=== PATIENT | female | born 1940 | race Caucasian/White ===

== ENCOUNTER 2017-10-28 09:35 | Outpatient (RCR) | payer MEDICARE, BC, SELFPAY ==
[2017-10-23 01:15] VITALS: BP 163/90; PULSE 69; RESP 16; TEMP 36.9; BMI 39.6
[2017-10-28 13:13] VITALS: BP 147/72; PULSE 82; RESP 16; TEMP 37.2; BMI 39.6
--- NOTE | 2017-10-28 14:48 | PCM.WC.PN ---
(1) Lipodermatosclerosis Status: Chronic Current Visit: Yes Code(s): I83.10 - Varicose veins of unspecified lower extremity with inflammation (2) Venous stasis dermatitis of both lower extremities Status: Chronic Current Visit: Yes Code(s): I87.2 - Venous insufficiency (chronic) (peripheral) (3) 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 Status: Chronic Current Visit: Yes Code(s): I83.029 - Varicose veins of left lower extremity with ulcer of unspecified site (4) Lymphedema Status: Chronic Current Visit: Yes Code(s): I89.0 - Lymphedema, not elsewhere classified Type of Wound Date of Service: 10/28/17 Chief Complaint: nonhealing venous ulcer of left lower extremity History of Wound: Blessing is a 76 yo female that presents for evaluation and treatment of a venous ulcer of her left lateral lower leg. She was referred by Dr. Carlos Shaw. This wound/ulcer has been present since 07/25/17. She states that she has chronic dry areas and scaliness of her shins/lower legs and has restless legs which she believes caused her to rub her leg against the sheets while sleeping and open this area on her lower leg. She was using Bactroban ointment to the wound with Telfa dressing initially. She saw her PCP, Dr. Vasquez, who recommended keeping it open to the air and not bandaging it and most recently she saw Dr. Shaw, who recommended using Vaseline and gauze to the wound. Dr. Shaw also had other recommendations for treatment of her lipdermatosclerosis which she has started. She states that the wound was almost healed but since she has been using dressings on it, they have been difficult to remove and have been pulling the skin off when the dressings are changed per the patient. There is some drainage but no erythema or increased pain. She has compression stockings but only wears them while traveling. She had vascular studies in 2011. Her diabetes is well controlled with last A1C of 6.7%. Progress of Wound: Blessing returns today for evaluation and treatment of a venous ulcer of her left lateral leg. Her wound/ulcer is healed today. She completed Bactrim and is still finishing her prescribed course of doxycycline. - Physical Exam Vital Signs Temp Pulse Resp BP 98.9 F 82 16 147/72 H 10/28/17 13:13 10/28/17 13:13 10/28/17 13:13 10/28/17 13:13 General: Alert, Oriented x3, Cooperative, No apparent distress HEENT: Atraumatic, Normocephalic Oral: Moist Mucosa Abdomen: Obese Extremities: Edema Skin: Ulcer/ Wound Wound Measurements and Assessment - Nurse 1 - General Ulcer Measurement Start: 10/28/17 13:12 Freq: Status: Active Protocol: Activity Type Activity Date Activity User E-Sign Co-Sign Detail Recorded Client Recorded Date Recorded By Document 10/28/17 13:13 [facility] [id number] 10/28/17 13:23 [facility] 10/28/17 13:13 Wound Center Nurse 1 [Ulcer Assessment Protocol: TOREY.ALMA.LOC] #1- LT LATERAL ANTHONY -Combined with other wound No -Current Size (cm) - Length 0.1 -Current Size (cm) - Width 0.1 -Current Size (cm) - Depth 0.1 -Total Square Cm 0.01 -Epithelialization Large 67-100% -Exudate Amt None Present (0 %) -Texture (Deborah-wound Skin Appearance) Scarring -Moisture (Deborah-wound Skin Appearance Dry/Scaly ) -Color (Deborah-wound Skin Appearance) Hemosiderin Staining -Temperature (Deborah-wound Skin No Abnormality Appearance) (Pt Warm) -Tenderness on Palpation (Deborah-wound No Skin Appearance) -Ulcer Cleansing Rinsed/ Irrigated with Saline -Foul Odor after Cleansing No -Anesthetic Used 4% Lidocaine Solution [Edema Assessment] -Lower Limb Edema Present Yes -Left Calf (cm) 42 -Left Ankle (cm) 24.4 - Nurse 2 - General Ulcer CM Notes Start: 10/28/17 13:12 Freq: Status: Active Protocol: Activity Type Activity Date Activity User E-Sign Co-Sign Detail Recorded Client Recorded Date Recorded By Document 10/28/17 14:12 [id number] 10/28/17 14:17 10/28/17 14:12 Wound Center Nurse 2 [Procedure/Treatment] #1- LT LATERAL ANTHONY -Time 14:13 -Correct Patient Yes -Correct Side, Site, Position Yes -Correct Procedure Yes -Procedure Performed Yes -Type of Procedure Debridement -Clinical Debridement Subcutaneous -Post Debridement Size (cm) - Length 0 -Post Debridement Size (cm) - Width 0 -Post Debridement Size (cm) - Depth 0 -Total Square Cm 0 -Wound/Ulcer Outcome Healed- Epithelialized -Ulcer Cleansing Rinsed/ Irrigated with Saline -Foul Odor after Cleansing No -Bioengineered Tissue No -Cetacaine [place] No -Bleeding Controlled with NA -Treatment Response Procedure Tolerated Well [See Physician Procedure note for Specifics] Pain Scale: 0-10 Numeric [Pain] -Is Patient Pain Free? Yes Psych/Mental Status: Normal Affect, Appropriate Debridement Note Post-Debridement Measurements/Treatment WC - Nurse 2 - General Ulcer CM Notes Start: 10/28/17 13:12 Freq: Status: Active Protocol: Activity Type Activity Date Activity User E-Sign Co-Sign Detail Recorded Client Recorded Date Recorded By Document 10/28/17 14:12 [id number] 10/28/17 14:17 10/28/17 14:12 Wound Center Nurse 2 #1- LT LATERAL ANTHONY -Time 14:13 -Correct Patient Yes -Correct Side, Site, Position Yes -Correct Procedure Yes -Procedure Performed Yes -Type of Procedure Debridement -Clinical Debridement Subcutaneous -Post Debridement Size (cm) - Length 0 -Post Debridement Size (cm) - Width 0 -Post Debridement Size (cm) - Depth 0 -Total Square Cm 0 -Wound/Ulcer Outcome Healed- Epithelialized -Ulcer Cleansing Rinsed/ Irrigated with Saline -Foul Odor after Cleansing No -Bioengineered Tissue No -Cetacaine [place] No -Bleeding Controlled with NA -Treatment Response Procedure Tolerated Well Pain Scale: 0-10 Numeric Is Patient Pain Free? Yes Wound debrided: left lateral anthony Laterality: Left No debridement was completed today Assessment/Plan Active Problems Lipodermatosclerosis (Chronic) Venous stasis dermatitis of both lower extremities (Chronic) 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 (Chronic) Lymphedema (Chronic) Assessment: venous ulcer of left lower extremity. lymphedema Plan: Blessing's wound was evaluated and is healed today. Encouraged regular use of her compression stockings to control edema to prevent future wounds/ulcers as well as elevation of legs when possible and avoidance of idle standing or sitting. She will be discharged today to follow up as needed if she has any future wounds.
--- NOTE | 2017-10-28 14:53 | PN.PCM_ITS ---
(1) Lipodermatosclerosis Status: Chronic Current Visit: Yes Code(s): I83.10 - Varicose veins of unspecified lower extremity with inflammation (2) Venous stasis dermatitis of both lower extremities Status: Chronic Current Visit: Yes Code(s): I87.2 - Venous insufficiency ( chronic) (peripheral) (3) 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 Status: Chronic Current Visit: Yes Code(s): I83.029 - Varicose veins of left lower extremity with ulcer of unspecified site (4) Lymphedema Status: Chronic Current Visit: Yes Code(s): I89.0 - Lymphedema, not elsewhere classified Type of Wound Date of Service: 10/28/17 Chief Complaint: nonhealing venous ulcer of left lower extremity History of Wound: Blessing is a 76 yo female that presents for evaluation and treatment of a venous ulcer of her left lateral lower leg. She was referred by Dr. Carlos Shaw. This wound/ulcer has been present since 07/25/17. She states that she has chronic dry areas and scaliness of her shins/lower legs and has restless legs which she believes caused her to rub her leg against the sheets while sleeping and open this area on her lower leg. She was using Bactroban ointment to the wound with Telfa dressing initially. She saw her PCP, Dr. Vasquez , who recommended keeping it open to the air and not bandaging it and most recently she saw Dr. Shaw, who recommended using Vaseline and gauze to the wound. Dr. Shaw also had other recommendations for treatment of her lipdermatosclerosis which she has started. She states that the wound was almost healed but since she has been using dressings on it, they have been difficult to remove and have been pulling the skin off when the dressings are changed per the patient. There is some drainage but no erythema or increased pain. She has compression stockings but only wears them while traveling. She had vascular studies in 2011. Her diabetes is well controlled with last A1C of 6.7%. Progress of Wound: Blessing returns today for evaluation and treatment of a venous ulcer of her left lateral leg. Her wound/ulcer is healed today. She completed Bactrim and is still finishing her prescribed course of doxycycline. - Physical Exam Vital Signs Temp Pulse Resp BP 98.9 F 82 16 147/72 H 10/28/17 13:13 10/28/17 13:13 10/28/17 13:13 10/28/17 13:13 General: Alert, Oriented x3, Cooperative, No apparent distress HEENT: Atraumatic, Normocephalic Oral: Moist Mucosa Abdomen: Obese Extremities: Edema Skin: Ulcer/ Wound Wound Measurements and Assessment - Nurse 1 - General Ulcer Measurement Start: 10/28/17 13:12 Freq: Status: Active Protocol: Activity Type Activity Date Activity User E-Sign Co-Sign Detail Recorded Client Recorded Date Recorded By Document 10/28/17 13:13 [facility] [id number] 10/28/17 13:23 [facility] 10/28/17 13:13 Wound Center Nurse 1 [Ulcer Assessment Protocol: TOREY.ALMA.LOC] #1- LT LATERAL ANTHONY -Combined with other wound No -Current Size (cm) - Length 0.1 -Current Size (cm) - Width 0.1 -Current Size (cm) - Depth 0.1 -Total Square Cm 0.01 -Epithelialization Large 67-100% -Exudate Amt None Present (0 %) -Texture (Deborah-wound Skin Appearance) Scarring -Moisture (Deborah-wound Skin Appearance Dry/Scaly ) -Color (Deborah-wound Skin Appearance) Hemosiderin Staining -Temperature (Deborah-wound Skin No Abnormality Appearance) (Pt Warm) -Tenderness on Palpation (Deborah-wound No Skin Appearance) -Ulcer Cleansing Rinsed/ Irrigated with Saline -Foul Odor after Cleansing No -Anesthetic Used 4% Lidocaine Solution [Edema Assessment] -Lower Limb Edema Present Yes -Left Calf (cm) 42 -Left Ankle (cm) 24.4 - Nurse 2 - General Ulcer CM Notes Start: 10/28/17 13:12 Freq: Status: Active Protocol: Activity Type Activity Date Activity User E-Sign Co-Sign Detail Recorded Client Recorded Date Recorded By Document 10/28/17 14:12 [id number] 10/28/17 14:17 10/28/17 14:12 Wound Center Nurse 2 [Procedure/Treatment] #1- LT LATERAL ANTHONY -Time 14:13 -Correct Patient Yes -Correct Side, Site, Position Yes -Correct Procedure Yes -Procedure Performed Yes -Type of Procedure Debridement -Clinical Debridement Subcutaneous -Post Debridement Size (cm) - Length 0 -Post Debridement Size (cm) - Width 0 -Post Debridement Size (cm) - Depth 0 -Total Square Cm 0 -Wound/Ulcer Outcome Healed- Epithelialized -Ulcer Cleansing Rinsed/ Irrigated with Saline -Foul Odor after Cleansing No -Bioengineered Tissue No -Cetacaine [place] No -Bleeding Controlled with NA -Treatment Response Procedure Tolerated Well [See Physician Procedure note for Specifics] Pain Scale: 0-10 Numeric [Pain] -Is Patient Pain Free? Yes Psych/Mental Status: Normal Affect, Appropriate Debridement Note Post-Debridement Measurements/Treatment WC - Nurse 2 - General Ulcer CM Notes Start: 10/28/17 13:12 Freq: Status: Active Protocol: Activity Type Activity Date Activity User E-Sign Co-Sign Detail Recorded Client Recorded Date Recorded By Document 10/28/17 14:12 [id number] 10/28/17 14:17 10/28/17 14:12 Wound Center Nurse 2 #1- LT LATERAL ANTHONY -Time 14:13 -Correct Patient Yes -Correct Side, Site, Position Yes -Correct Procedure Yes -Procedure Performed Yes -Type of Procedure Debridement -Clinical Debridement Subcutaneous -Post Debridement Size (cm) - Length 0 -Post Debridement Size (cm) - Width 0 -Post Debridement Size (cm) - Depth 0 -Total Square Cm 0 -Wound/Ulcer Outcome Healed- Epithelialized -Ulcer Cleansing Rinsed/ Irrigated with Saline -Foul Odor after Cleansing No -Bioengineered Tissue No -Cetacaine [place] No -Bleeding Controlled with NA -Treatment Response Procedure Tolerated Well Pain Scale: 0-10 Numeric Is Patient Pain Free? Yes Wound debrided: left lateral anthony Laterality: Left No debridement was completed today Assessment/Plan Active Problems Lipodermatosclerosis (Chronic) Venous stasis dermatitis of both lower extremities (Chronic) 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 (Chronic) Lymphedema (Chronic) Assessment: venous ulcer of left lower extremity. lymphedema Plan: Blessing's wound was evaluated and is healed today. Encouraged regular use of her compression stockings to control edema to prevent future wounds/ulcers as well as elevation of legs when possible and avoidance of idle standing or sitting. She will be discharged today to follow up as needed if she has any future wounds.
== END 2017-11-20 23:59 ==
LOC: WC 09:35
PROVIDERS: Family Provider Internal Medicine; PCP Internal Medicine; Visit Provider Family Medicine
DX: I83.12 Varicose veins of left lower extremity with inflammation (principal)
CPT/HCPCS: 11042; 99213; G0463

== ENCOUNTER 2020-12-11 11:00 | Outpatient (RCR) | payer MEDICARE, SELFPAY ==
[2017-11-21 01:23] VITALS: BMI 39.6
== END 2020-12-11 23:59 ==
LOC: IMMUN 11:00
PROVIDERS: PCP Internal Medicine; Visit Provider Family Medicine
DX: Z23 Encounter for immunization (principal)
CPT/HCPCS: 0011A; 0012A; 91301

== ENCOUNTER 2022-08-31 08:57 | Outpatient (RCR) | payer MEDICARE, BC, SELFPAY ==
[2022-08-31 09:20] VITALS: BP 142/69; PULSE 51; TEMP 36.6; BMI 39.6
--- NOTE | 2022-08-31 18:12 | PCM.WC.HP ---
History of Present Illness Date of Service: 08/31/22 Chief Complaint: Nonhealing venous ulcer of left lower extremity near the left lateral malleolus History of Wound: This is an 81-year-old female with a longstanding history of chronic venous insufficiency and vein related symptoms and manifestations. The patient has been previously treated in the past for venous ulcerations in the left lower extremity. In 2016, she was treated at our facility by Dr. Argentina Tellez for similar problems. She lives part of her year in [place]. In May, while in [place], she was treated for a venous ulceration near the left lateral malleolus. According the patient, she was diagnosed with cellulitis and wound infection, and treated with oral clindamycin. She has been wearing compression in the left lower extremity. She has recently been treated by her primary care physician locally, Dr. Vasquez at the [facility], and by her assistant passenger locomotive engineer, Dr. Carlos Shaw. She is currently taking horse chestnut extract. She claims to sleep on a flat mattress at night. She is currently wearing compression stockings of 10 to 15 mmHg compression, claiming to be unable to don compression stockings of a higher degree of compression. Without compression stockings, the patient notes swelling in her left lower extremity, which is typically worse at the end of the day. The patient has manifestations of severe venous disease in her lower extremities, consisting of lipodermatosclerosis, hyperpigmentation, and venous stasis dermatitis. The manifestations are more severe in the left lower extremity. [facility] Medical History Cardiomegaly Chronic venous insufficiency Generalized osteoarthrosis History of right breast cancer Hyperpigmentation of skin Left leg swelling Lipodermatosclerosis of both lower extremities Right leg swelling Varicose veins of lower extremity with inflammation, 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 Venous stasis ulcer Home Medications L.acidoph, paracasei,B. lactis 10 billion cell capsule 1 capsule PO DAILY 09/30/17 [History Last Taken Unknown] amlodipine 5 mg tablet 5 mg PO DAILY 09/30/17 [History Last Taken Unknown] aspirin 81 mg chewable tablet 81 mg PO DAILY 09/30/17 [History Last Taken Unknown] atenolol 25 mg tablet 25 mg PO DAILY 09/30/17 [History Last Taken Unknown] gabapentin 300 mg capsule (Neurontin) 300 mg PO DAILY 09/30/17 [History Last Taken Unknown] hydrochlorothiazide 25 mg tablet 25 mg PO DAILY 09/30/17 [History Last Taken Unknown] levothyroxine 100 mcg tablet 100 mcg PO DAILY 09/30/17 [History Last Taken Unknown] liraglutide 0.6 mg/0.1 mL (18 mg/3 mL) subcutaneous pen injector (Victoza 2-Salomón) 1.2 mg SQ BREAKFAST 09/30/17 [History Last Taken Unknown] lisinopril 40 mg tablet 40 mg PO DAILY 09/30/17 [History Last Taken Unknown] metformin 500 mg 24 hr tablet,extended release 500 mg PO BID 09/30/17 [History Last Taken Unknown] multivitamin (Daily Multiple tablet) 1 ea PO DAILY 09/30/17 [History Last Taken Unknown] pentoxifylline 400 mg tablet,extended release 1 tab PO TID 09/30/17 [History Last Taken Unknown] pentoxifylline 400 mg tablet,extended release 400 mg PO TID 09/30/17 [History Last Taken Unknown] Allergy/AdvReac Type Severity Reaction Status Date / Time enoxaparin [From Lovenox] Allergy Unknown Verified 09/30/17 19:13 oxycodone Allergy Unknown Verified 09/30/17 19:13 Penicillins [PCN] Allergy Unknown Verified 09/30/17 19:13 Surgical History History of lumbar laminectomy History of lumpectomy of right breast 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 General Appearance: cooperative, comfortable, well kempt and well developed Orientation / Consciousness: awake, oriented to person, oriented to place and oriented to time HEENT normocephalic and head/scalp atraumatic Head and Scalp: normal to inspection, normocephalic and atraumatic External Ear: external ears normal Eyes PERRL and EOMs intact bilaterally General Eye: normal appearance of both eyes Resp normal respiratory effort, normal air movement, no retractions and no use of accessory muscles Effort and Inspection: able to speak in complete sentences Extremity no calf tenderness General Extremity: Negative for clubbing or cyanosis Skin Wound Narrative: A small ulceration is noted near the left lateral malleolus. Dimensions are documented elsewhere. There is no sign of infection or cellulitis. Severe lipodermatosclerosis and hyperpigmentation are noted bilaterally, more severe in the left lower extremity. Swelling and edema are noted bilaterally, particularly on the dorsum of the left foot. There is a small amount of bioburden. Neuro oriented x3, CN's II-XII intact bilaterally and moves all extremities Sensorium / Orientation: awake, alert, oriented to person, oriented to place and oriented to time Psych Appearance: grossly normal and appropriate Attitude: calm Activity / Motor Behavior: appropriate eye contact Speech: normal speech Mood & Affect: euthymic mood Thought Process: normal thought process Thought Content: normal thought content Attention / Concentration: attention grossly intact Debridement Note Debridement Note Wound debrided: Left lateral malleolus Laterality: Left Type of Debridement: Selective debridement Anesthesia Used: 5% Lidocaine Gel Depth: Down to and including healthy tissue and in the subcutaneous layer Percentage of wound debrided: 100 Instrument Used: 3mm curette Tissue Removed: Bioburden and eschar Severity: Fat Layer Exposed Bleeding Controlled with: Compression and gauze Patient tolerated procedure: Patient tolerated procedure well Post-Debridement Measurements and Additional Note: Post-Debridement Measurements/Treatment - Nurse 1 - General Ulcer Assessment Start: 08/31/22 09:20 Freq: Status: Active Protocol: JORGE Activity Type Activity Date Activity User E-sign Co-sign Detail Recorded Client Recorded Date Recorded By Document 08/31/22 09:20 WAYNE [id number] 08/31/22 09:30 WAYNE 08/31/22 09:20 - Today's Visit Information Type of service Initial Visit Arrival Mode Ambulatory, Walker Patient Identification Verified (Name & Yes ) Height and Weight Height 5 ft 1 in Weight 210 lb Weight in Pounds 210.0 lbs Body Mass Index (BMI) 39.6 BMI Classification Obese BSA - Rogelio 1.93 Vital Signs Temperature (97.8 F-99.1 F) 97.8 F Temperature Source Temporal Pulse Rate (60-100) 51 L Pulse Location Monitor Blood Pressure (90/60-120/80) 142/69 H Blood Pressure Mean 93 Source Monitor Position Sitting Blood Pressure Location Right Arm History Since Last Visit- (Skip if this is Patient's initial visit) Have you changed medications since your No last visit? Any new allergies or adverse reactions No Had a fall/change in ADL's that may No increase risk of falls Signs or symptoms of abuse and/or No neglect since last visit Have you been in the hospital since your No last visit? Has dressing in place as prescribed Yes Has compression in place as prescribed N/A Has offloadiing in place as prescribed N/A Experienced any changes in pain level or No management Left Footwear Regular Shoe Right Footwear Regular Shoe Pain Scale: 0-10 Numeric Is Patient Pain Free? Yes WC - Nurse 1 - General Ulcer Measurement Start: 08/31/22 09:20 Freq: Status: Active Protocol: Activity Type Activity Date Activity User E-sign Co-sign Detail Recorded Client Recorded Date Recorded By Document 08/31/22 09:20 [id number] 08/31/22 09:30 WAYNE 08/31/22 09:20 Wound Center Nurse 1 #2 Left Lateral Lower Extremity -Current Size (cm) - Length 0.1 -Current Size (cm) - Width 0.1 -Current Size (cm) - Depth 0.1 -Total Square Cm 0.01 -Exudate Amt None Present -Wound Margin Distinct, Outline Attached -Granulation Amt None Present (0 %) -Necrosis Amt None Present (0 %) -Texture (Deborah-wound Skin Appearance) Assessed, Scarring -Moisture (Deborah-wound Skin Appearance) Assessed,Dry/ Scaly -Color (Deborah-wound Skin Appearance) No Abnormality, Assessed -Temperature (Deborah-wound Skin No Abnormality Appearance) (Pt Warm) -Tenderness on Palpation (Deborah-wound No Skin Appearance) -Ulcer Cleansing Rinsed/ Irrigated with Saline -Foul Odor after Cleansing No -Anesthetic Used 5% Lidocaine Gel Right Calf (cm) 40.0 Right Ankle (cm) 23.2 Left Calf (cm) 43.2 Left Ankle (cm) 25.1 WC - Nurse 2 - General Ulcer CM Notes Start: 08/31/22 09:20 Freq: Status: Active Protocol: Activity Type Activity Date Activity User E-sign Co-sign Detail Recorded Client Recorded Date Recorded By Document 08/31/22 12:04 PL [id number] 08/31/22 12:05 PL 08/31/22 12:04 Wound Center Nurse 2 #2 Left Lateral Lower Extremity -Time 09:47 -Correct Patient Yes -Correct Side, Site, Position Yes -Correct Procedure Yes -Procedure Performed Yes -Type of Procedure Debridement -Clinical Debridement Epidermis / Dermis -Tissue Removed Epidermis, Dermis -Post Debridement (cm) - Length 0.1 -Post Debridement (cm) - Width 0.1 -Post Debridement (cm) - Depth 0.1 -Total Square (Post) (cm) 0.01 -Area of Debridement (cm) - Length 0.1 -Area of Debridement (cm) - Width 0.1 -Total Square (Area) (cm) 0.01 -Tunneling No -Undermining/Tunneling No -Circular Undermining No -Wound/Ulcer Outcome Not Healed -Ulcer Cleansing Rinsed/ Irrigated with Saline -Foul Odor after Cleansing No -Bioengineered Tissue No -Bleeding Controlled with Pressure -Treatment Response Procedure Tolerated Well -Debridement - Open, 1st 20sq cm Yes Pain Scale: 0-10 Numeric Is Patient Pain Free? Yes - Nurse 3 - General Ulcer D/C NN Start: 08/31/22 09:20 Freq: Status: Active Protocol: Activity Type Activity Date Activity User E-sign Co-sign Detail Recorded Client Recorded Date Recorded By Document 08/31/22 12:26 DL [id number] 08/31/22 12:30 DL 08/31/22 12:26 Wound Care Nurse 3 #2 Left Lateral Lower Extremity -Ulcer Cleansing Rinsed/ Irrigated with Saline -Foul Odor after Cleansing No -Primary Dressing Covered/Secured with Dry Gauze & Roll Gauze, Secured with Tape Right -Tubular Bandage Single Layer -Size of Tubigrip Used Size D -Size D ($) 1 Treatment Response Procedure Tolerated Well Pain Scale: 0-10 Numeric Is Patient Pain Free? Yes - Visit Discharge Discharge Condition Stable Ambulatory Status Ambulatory, Walker Transportation Private Auto Accompanied by Assessment/Plan Assessment/Plan (1) Venous stasis ulcer: CODE(S): I83.009 - Varicose veins of unspecified lower extremity with ulcer of unspecified site; L97.909 - Non-pressure chronic ulcer of unspecified part of unspecified lower leg with unspecified severity (2) 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: CODE(S): I83.029 - Varicose veins of left lower extremity with ulcer of unspecified site (3) Varicose veins of lower extremity with inflammation, 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: CODE(S): I83.203 - Varicose veins of unspecified lower extremity with both ulcer of ankle and inflammation; L97.302 - Non-pressure chronic ulcer of unspecified ankle with fat layer exposed (4) Chronic venous insufficiency: CODE(S): I87.2 - Venous insufficiency (chronic) (peripheral) (5) Left leg swelling: CODE(S): M79.89 - Other specified soft tissue disorders (6) Lipodermatosclerosis of both lower extremities: CODE(S): I83.11 - Varicose veins of right lower extremity with inflammation; I83.12 - Varicose veins of left lower extremity with inflammation (7) Hyperpigmentation of skin: CODE(S): L81.9 - Disorder of pigmentation, unspecified (8) Hypothyroidism: CODE(S): E03.9 - Hypothyroidism, unspecified (9) Hypertension: CODE(S): I10 - Essential (primary) hypertension QUALIFIERS: Hypertension type: essential hypertension Qualified Code(s): I10 - Essential (primary) hypertension (10) Dyslipidemia: CODE(S): E78.5 - Hyperlipidemia, unspecified (11) Type 2 diabetes mellitus: CODE(S): E11.9 - Type 2 diabetes mellitus without complications QUALIFIERS: Diabetes mellitus complication status: with unspecified complications Diabetes mellitus assisted insulin use: unspecified ad terminal makeup operator insulin use status Qualified Code(s): E11.8 - Type 2 diabetes mellitus with unspecified complications (12) Cardiomegaly: CODE(S): I51.7 - Cardiomegaly (13) History of right breast cancer: CODE(S): Z85.3 - Personal history of malignant neoplasm of breast (14) Generalized osteoarthrosis: CODE(S): M15.9 - Polyosteoarthritis, unspecified (15) History of total bilateral knee replacement (TKR): CODE(S): Z96.653 - Presence of artificial knee joint, bilateral (16) History of total replacement of both hip joints: CODE(S): Z96.643 - Presence of artificial hip joint, bilateral (17) History of lumbar laminectomy: CODE(S): Z98.890 - Other specified postprocedural states (18) History of lumpectomy of right breast: CODE(S): Z98.890 - Other specified postprocedural states (19) Right leg swelling: CODE(S): M79.89 - Other specified soft tissue disorders PLAN: Plan This is an 81-year-old female with a longstanding history of chronic venous disease. She has been treated for ulcerations in the left lower extremity in the past, and presents at this time with a recurrence. A lengthy discussion has been undertaken with the patient and her , who is at the bedside. The appropriate conservative treatment measures relative to her venous disease have been explained. Leg elevation has been advised. She is to continue sleeping on a flat mattress at night. Leg elevation is to be to heart level, is much as possible, even during daytime hours. The patient has been advised to refrain from prolonged idle sitting. Activity has been encouraged. Weight loss has also been recommended. We are to continue compression to the lower extremities. Her current compression stockings of 10 to 15 mmHg compression is likely insufficient. Because of her difficulty in donning compression stockings, we advised wearing 2 pairs of compression stockings of 10 to 15 mmHg simultaneously. [id number] analgesics have been recommended as necessary. With respect to the ulceration, we are to implement the use of collagen hydrogel topically, which will be applied by the patient on a daily basis. Until which time the patient's left lower extremity swelling and edema are at a minimum, we will use Tubigrip's worn on a daily basis. The patient has been told by previous providers that she may be a candidate for endovenous ablation of incompetent superficial veins in her left lower extremity. In this regard, we are to obtain a venous duplex examination to assess valvular patency and competence in the deep and superficial veins of the lower extremities. Once obtained, the results will be discussed with the patient and her , and her options will be explained. The patient is to return in 1 week for reassessment. Hemoglobin A1c obtained on 08/13/2022 was 6.8. The patient has been advised to optimize her glycemic control, and to ensure adequate nutritional intake. Total time: 65 minutes
== END 2022-09-20 23:59 | disposition home or self-care (01) ==
LOC: WC 08:57
PROVIDERS: PCP Internal Medicine; Visit Provider Surgery
DX: I83.223 Varicose veins of left lower extremity with both ulcer of ankle and inflammation (principal); L97.322 Non-pressure chronic ulcer of left ankle with fat layer exposed; Z79.4 Long term (current) use of insulin; I83.11 Varicose veins of right lower extremity with inflammation; E78.5 Hyperlipidemia, unspecified; E03.9 Hypothyroidism, unspecified; I10 Essential (primary) hypertension; M79.89 Other specified soft tissue disorders; M15.9 Polyosteoarthritis, unspecified; I87.2 Venous insufficiency (chronic) (peripheral); E66.9 Obesity, unspecified; Z68.39 Body mass index [BMI] 39.0-39.9, adult; Z79.82 Long term (current) use of aspirin; Z79.890 Hormone replacement therapy; Z79.84 Long term (current) use of oral hypoglycemic drugs; Z79.899 Other long term (current) drug therapy; Z85.3 Personal history of malignant neoplasm of breast
CPT/HCPCS: 97597; 99213; G0463

== ENCOUNTER → 2022-09-03 | Outpatient (CLI) | payer MEDICARE, BC, SELFPAY ==
--- NOTE | 2022-09-03 10:40 | MRI_ITS ---
STUDY: MRI BRAIN WITH AND WITHOUT CONTRAST (ATTENTION INTERNAL AUDITORY CANALS - I.A.C.''s) REASON FOR EXAM: Female, 81 years old. ASYMMETRIC HEARING LOSS;DIZZINESS -- ATTENTION:IACs Technologist Notes Other, BALANCE ISSUES AND RIGHT SIDED HEARING LOSS X 3-4 MONTHS. HX OF BREAST CANCER NO PREVIOUS IMAGING TECHNIQUE: Standardized multiplanar fat and water weighted pulse sequences were obtained. ml of 19mL CLARISCAN contrast material was administered intravenously for the contrast portion of the examination. COMPARISON: None. FINDINGS: Normal bilateral temporal bones. Normal bilateral internal auditory canals. There is no demonstrated intracanalicular or cisternal vestibular schwannoma (acoustic neuroma). There is no enhancement of the bilateral VIIth or VIIIth cranial nerves. Normal bilateral cochlea, vestibules and semicircular canals. No visualized MONDINI''s malformation or vestibular enlargement. No cerebellar pontine angle masses or cysts are present. No visualized cavernous sinus masses. The visualized mastoid air cells are clear. There is mild cerebral atrophy with widening of the extra-axial spaces and ventricular dilatation. There are multiple white matter hyperintensities, distributed throughout the deep white matter tracts of the cerebral hemispheres, consistent with mild to moderate chronic white matter ischemic changes. There is no evidence for recent intracranial ischemia or other cause of cytotoxic edema on diffusion weighted imaging (DWI). Normal T2* images of the brain without demonstrated susceptibility artifact. There is no demonstrated hemosiderin stain. Normal bilateral basal ganglia. Normal thalami. Normal flow voids within the major intracranial circulation suggesting patency by spin echo criteria. Normal venous enhancement. There is no enhancing intra-axial or extra-axial abnormality. There is no extra-axial fluid accumulation. Normal sella turcica, pituitary gland, infundibular stalk, optic chiasm and hypothalamus. Normal tectal plate and pineal gland. Normal midbrain, valentine and medulla. Normal cerebellum. Normal basal cisterns. No demonstrated orbital abnormality, within the constraints of a routine brain study. Normal visualized paranasal sinuses. Normal calvarium and skull base. Normal visualized soft tissue structures. Normal visualized upper cervical spine. MRI/Brain W/WO Contrast IMPRESSION: 1. Normal unenhanced and enhanced MRI of the bilateral internal auditory canals (I.A.C''s). 2. No visualized MONDINI''s malformation or vestibular enlargement. No cerebellar pontine angle masses or cysts are present. No visualized cavernous sinus masses. The visualized mastoid air cells are clear. 3. Involutional and chronic ischemic changes of the brain, as described above. Electronically Signed: Fidel Dumont MD at 12:49 EDT ,
== END | disposition home or self-care (01) ==
LOC: MRI 10:18
PROVIDERS: PCP Internal Medicine; Referring Provider Otolaryngology; Visit Provider Otolaryngology
DX: R42 Dizziness and giddiness (principal); H90.3 Sensorineural hearing loss, bilateral
CPT/HCPCS: 70553; A9575

== ENCOUNTER 2025-01-08 10:27 | Inpatient (IN) | payer MEDICARE, SELFPAY ==
[2025-01-08] VITALS (15 sets, daily range): BP systolic 91–126; BP diastolic 58–96; PULSE 82–151; RESP 18–24; TEMP 36.6–36.9; O2SAT 88–98; BMI 44.2; BMI 41.5
[2025-01-08 10:54] LABS: Absolute Lymphocyte Count 1.24 X10^3/uL (0.83-4.51); Absolute Neutrophil Count 6.2 X10^3/uL (2.0-7.7); Basophil# 0.13 X10^3/uL; Basophil% 1.5 % (0-1); Eosinophil# 0.34 X10^3/uL; Eosinophils% 3.9 % (0-5); Hematocrit 41.3 % (37-47); Hemoglobin 12.9 g/dL (12.0-15.0); Lymphocyte # 1.24 X10^3/ul (0.83-4.51); Lymphocyte % 14.4 % (19-41); Mean Corp Hgb Conc 31.2 g/dL (32-36); Mean Corpuscular Hgb 28.5 pg (27.0-32.0); Mean Corpuscular Volume 91.2 fL (81-99); Mean Platelet Vol. 10.5 fl (6.2-12.0); Monocyte# 0.66 X10^3/uL; Monocyte% 7.6 % (0-10); NRBC Flagged by Analyzer 0 % (0-5); Neutrophil # 6.21 X10^3/uL (2.7-7.7); Platelet Count 330 K/mm3 (150-450); RBC Distribution Width SD 52.7 fl (35.1-43.9); Red Blood Count 4.53 M/mm3 (4.2-5.4); White Blood Count 8.6 K/mm3 (4.4-11.0)
--- NOTE | 2025-01-08 10:57 | EDS_ITS ---
HPI History of Present Illness Chief Complaint: Palpitations Informant: patient and spouse/S.O. Onset/Context/Timing Activity at onset: gradual Narrative Narrative: 84-year-old female history of diabetes prior lumpectomy for breast cancer years ago and hypothyroidism. Also history of renal insufficiency. She has had intermittent palpitations for weeks and about a 30 pound weight gain in the last 2 weeks. Dyspnea primarily supine and with exertion. No chest pain. No fever. Saw her primary care physician today in the office diagnosed with new onset A- fib and sent to the emergency department. Prior Similar Symptoms: No Recent Illness/Hospitalization: No CVD Risk Factors: Positive for Diabetes PE Risk Factors: Negative for Recent Travel/Surgery, Recent Immobilization, Prior DVT or PE, Cancer or OCP + Smoking + >/=35 TAD Risk Factors: Negative for Marfan's Syndrome [facility] Medical History Venous stasis ulcer Hyperpigmentation of skin Lipodermatosclerosis of both lower extremities Right leg swelling Left leg swelling Varicose veins of lower extremity with inflammation, 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 Chronic venous insufficiency Generalized osteoarthrosis History of right breast cancer Cardiomegaly Home Medications ?Medication ?Instructions ?Recorded ?Last Taken ?Type L.acidoph,paracasei,B.animalis 10 1 capsule PO DAILY 1 11/30/16 Unknown History billion cell capsule amlodipine 5 mg tablet 5 mg PO DAILY 09/30/17 Unkno wn History aspirin 81 mg chewable tablet 81 mg PO DAILY 09/30/17 Unknown History atenolol 25 mg tablet 25 mg PO DAILY 09/30/17 Unkn own History gabapentin 300 mg capsule 300 mg PO DAILY 09/30/17 Unk nown History (Neurontin) hydrochlorothiazide 25 mg tablet 25 mg PO DAILY Unknown History levothyroxine 100 mcg tablet 100 mcg PO DAILY 09/30/17 Unknown History liraglutide 0.6 mg/0.1 mL (18 mg/3 1.2 mg SQ BREAKFAST 09/30/17 Unknown History mL) subcutaneous pen injector (Victoza 2-Salomón) lisinopril 40 mg tablet 40 mg PO DAILY 09/30/17 Unkn own History metformin 500 mg 24 hr 500 mg PO BID 09/30/17 Unkno wn History tablet,extended release (gastric retention) multivitamin (Daily Multiple 1 ea PO DAILY 09/30/17 Un known History tablet) pentoxifylline 400 mg 1 tab PO TID 09/30/17 Unknow n History tablet,extended release pentoxifylline 400 mg 400 mg PO TID 09/30/17 Unkno wn History tablet,extended release Allergy/AdvReac Type Severity Reaction Status Date / Time enoxaparin (From Lovenox) Allergy Unknown Verified 01/08/25 10:28 oxycodone Allergy Unknown Verified 01/08/25 10:28 Penicillins (PCN) Allergy Unknown Verified 01/08/25 10:28 Surgical History History of lumpectomy of right breast History of lumbar laminectomy History of total replacement of both hip joints History of total bilateral knee replacement (TKR) Social History Smoking Status: Never smoker ROS ROS ED ROS Narrative Shortness of breath. Worse with exertion and supine. Palpitations. Constitutional Constitutional ED: Denies chills or fever(s) Eyes Eyes: Reports none ENT ENT ED: Denies ear pain Cardiovascular Cardiovascular: Reports as per HPI, palpitations and paroxysmal nocturnal dyspnea; Denies chest pain Respiratory/Chest Respiratory/Chest: Reports dyspnea on exertion and paroxysmal nocturnal dyspnea Gastrointestinal Gastrointestinal: Denies abdominal pain, melena, nausea or vomiting Genitourinary Genitourinary ED: Denies dysuria or hematuria Musculoskeletal Musculoskeletal: Denies arthralgias Integumentary Denies abscess Neurologic Neurologic: Denies headache(s) Psychiatric Psychiatric: Denies anxiety Endocrine Endocrinology: Denies cold intolerance Hematologic/Lymphatic Hematologic/Lymphatic: Denies easy bleeding Allergic/Immunologic Allergic/Immunologic ED: Denies mouth swelling EXAM Physical Exam Narrative Exam Narrative: Well-appearing 84-year-old female. Vital signs show A-fib at a moderate rate of 140. Pulse ox 98% on room air no hypoxia. H EENT exam pupils round reactive light. Moist mucous members. Neck nontender no JVD. Lungs clear to auscultation bilaterally. Heart irregular irregular A-fib rate about 140. Jumping between 110 and 150. No murmur. Chest wall nontender. Abdomen soft. Ascites. Moving all 4 extremities. 1+ pitting edema both lower extremities. Dorsi plantarflexion intact. 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 Neurologically she is awake and alert no focal motor deficits. Answer questions following commands. at bedside. Const Vital Signs: 01/08/25 10:28 01/08/25 11:05 01/08/25 11:27 Temperature 97.8 F Temperature Source Oral Pulse Rate 151 H 82 Respiratory Rate 24 H 24 H Respiratory Effort Respiratory Pattern Blood Pressure 126/74 H 99/58 L Blood Pressure Mean 91 71 Pulse Ox 98 Oxygen Delivery Method Room Air 01/08/25 11:31 01/08/25 12:00 Temperature Temperature Source Pulse Rate 94 Respiratory Rate 19 H Respiratory Effort Normal Non-Labored Respiratory Pattern Tachypnea Blood Pressure 91/60 Blood Pressure Mean 70 Pulse Ox Oxygen Delivery Method Positive well nourished and well developed; Negative for cachectic, contractures or unkempt General Appearance ED: well developed and NAD; Negative for unkempt, cachectic, contractures or pallor Nutritional Appearance: Negative for cachectic HEENT Reports moist mucous membranes normocephalic and atraumatic Eyes PERRL Neck no lymphadenopathy, supple and no JVD Chest Wall inspection of chest normal and palpation of chest normal Resp normal respiratory effort and clear to auscultation bilaterally Cardio no murmurs; Negative for regular rate or regular rhythm Rate: other Other Details: A-fib rate 140. Irregularly irregular. Peripheral Pulses: pulses 2+ throughout GI normal to inspection, nondistended, normoactive bowel sounds, soft to palpation, non-tender, non-distended and no masses Back/Spine no CVA tenderness and no thoracic nor lumbar tenderness Extremity Negative for normal to inspection General Extremety ED: Yes edema General Extremity: edema Neuro oriented x3 and CN's II-XII intact bilaterally Sensorium / Orientation: awake, alert and oriented to person; Negative for c onfused or lethargic Motor Exam: strength 5/5 throughout Psych mental status grossly normal Appearance: Negative for unkempt Mood & Affect: Negative for depressed, anxious or tearful Skin no rashes or lesions noted and no wounds General Skin Exam: Negative for jaundice or pallor Rashes: No rashes noted Trauma: Negative for abrasion MDM MDM MDM Narrative Medical decision making narrative: 84-year-old female new onset A-fib RVR. Recent weight gain, dyspnea at night and lower extremity swelling. I think this is all from the A-fib. Undergo a cardiac workup. Cardizem for the A-fib RVR. She may or may not need to go on a drip. She will need further workup and admission. Repeat exam patient doing well at 12:35 PM. Remains in A-fib rates between 80 and 110 right now. Will hold off on a Cardizem drip currently. I went over her test results with her. She will be admitted. Have the hospitalist on page. History & Record Review Discussion w/independent historian: Patient and Family Additional record(s) reviewed:: Prior inpatient record, Prior outpatient record, Prior ED visit and Prior labs Lab Data Attestation: I reviewed the patient's lab results. Lab results narrative: CBC shows a white count 8. H&H 12 and 41. Platelets 330. PT/INR were 15 and 1.2. PTT is 28. Electrolytes showed 12. BUN of 40 creatinine 1.37. Glucose 145. Troponin 13. BNP 230. TSH 4.9. Chest x-ray cardiomegaly with right pleural effusion moderate. Labs: Laboratory Results - last 24 hr 01/08/25 10:40 WBC 8.6 RBC 4.53 Hgb 12.9 Hct 41.3 MCV 91.2 MCH 28.5 MCHC 31.2 L RDW Std Deviation 52.7 H RDW Coeff of Marcial 16.0 H Plt Count 330 MPV 10.5 Immature Gran % (Auto) 0.600 Neut % (Auto) 72.0 H Lymph % (Auto) 14.4 L [place] % (Auto) 7.6 Eos % (Auto) 3.9 Baso % (Auto) 1.5 H Absolute Neuts (auto) 6.2 Absolute Lymphs (auto) 1.24 Nucleated RBC % 0 PT 15.1 H INR 1.2 APTT 28.0 Sodium 140 Potassium 4.0 Chloride 105 Carbon Dioxide 23.0 Anion Gap 12 BUN 40 H Creatinine 1.37 H Estim Creat Clear Calc 33.72 Est GFR (MDRD) Af Amer 47 L Est GFR (MDRD) Non-Af 39 L BUN/Creatinine Ratio 29.2 H Glucose 145 H Calcium 10.1 Troponin I High Sens 13 B-Natriuretic Peptide 230.5 H TSH 4.920 H Radiography Chest X-Ray - ED: 1 View, Read by ED Physician, Normal, Mediastinum, Bony Structures, Chronic Changes, Cardiomegaly and Right Effusion Diagnostic Testing: Chest x-ray, portable, single view interpreted by myself shows cardiomegaly and a moderate size right pleural effusion. Rhythm Strip Rhythm Strip: A-fib Rate: 118 Ectopy: None EKG Initial EKG: Attestation: I personally reviewed and interpreted this EKG as follows: Interpretation: Atrial Fibrillation Comments: A-fib RVR rate of 118. Right bundle patricia block. Left anterior fascicular block. No acute signs of ME. Discharge Plan Dx/Rx/DC Orders Clinical Impression: Atrial fibrillation with rapid ventricular response, Pleural effusion on right, CHF (congestive heart failure), History of diabetes mellitus, History of hypothyroidism Disposition Disposition: Acute Care Hospital [facility]
[2025-01-08 11:05] LABS: International Normalized Ratio 1.2; Prothrombin Time (Protime)PT. 15.1 SECONDS (11.7-14.9)
[2025-01-08] MEDS: dilTIAZem 25 MG/5 ML Vial 20 MG IV BOLUS (11:17)
[2025-01-08 11:22] LABS: Anion Gap 12 (5-15); BUN 40 mg/dL (7-18); BUN/Creat Ratio 29.2 RATIO (10-20); Calcium,Total 10.1 mg/dL (8.5-10.1); Chloride 105 mmol/L (98-107); Creatinine, Serum 1.37 mg/dL (0.55-1.02); EST Glomerular Filtration Rate 39 mL/min (>60); Est Glom Filt Rate - Afr Amer 47 mL/min (>60); Estimated Creatinine Clearance 33.72 ml/min; Glucose 145 mg/dL (74-106); Sodium Level 140 mmol/L (136-145); Troponin-I HS 13 pg/mL (3.0-54.0)
[2025-01-08 11:27] LABS: BNP,B-Type NATRIURETIC PEPTIDE 230.5 pg/mL (0-100)
--- NOTE | 2025-01-08 11:30 | RAD_ITS ---
PROCEDURE: CHEST 1 VIEW (PORTABLE) REASON FOR EXAM: New onset of atrial fibrillation. Chest pain. TECHNIQUE: Frontal view of the chest. COMPARISON: No prior study. FINDINGS: EKG electrodes are seen. Right pleural effusion with right basilar atelectasis. CHF. Cardiomegaly. Calcification of the aortic arch. Degenerative changes of the thoracic vertebrae. RAD/Chest 1 View (Portable) IMPRESSION: Cardiomegaly, CHF and right pleural effusion with right basilar atelectasis. Reading Location: [facility]-
--- NOTE | 2025-01-08 12:48 | PCM.HP.STD ---
HPI - General General Date of Admission: 01/08/25 Date of Service: 01/08/25 Chief Complaint: Palpitation, new onset A-fib. Weight gain 30 pounds in past 3 weeks HPI Narrative JESS JACKSON, is a 84 F has been not feeling good for last 3 to 4 weeks with sinus drainage and congestion went to see PCP. There she had palpitation and EKG was done which shows A-fib was sent to ED. Patient also mentioned that she has increased abdominal swelling, leg swelling and 30 pound weight gain in past 3 weeks. She states she has chronic leg swelling left more than right due to chronic venous insufficiency and is on electronic device prescribed by vascular surgeon. She denies any fever or chill. In ED she was found A-fib with RVR 118 bpm, QRS 140 ms, QTc 448 ms, bifascicular block. Patient was given IV Cardizem 20 mg that caused her blood pressure dropped to 91/60 and now recovered . Chest x-ray and EKG discussed in assessment and plan. [facility] Medical History Venous stasis ulcer Hyperpigmentation of skin Lipodermatosclerosis of both lower extremities Right leg swelling Left leg swelling Varicose veins of lower extremity with inflammation, 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 Chronic venous insufficiency Generalized osteoarthrosis History of right breast cancer Cardiomegaly Home Medications ?Medication ?Instructions ?Recorded ?Last Taken ?Type amlodipine 5 mg tablet 5 mg PO BID 09/30/17 01/08/25 History aspirin 81 mg chewable tablet 81 mg PO DAILY 09/30/17 01/08/25 History atenolol 25 mg tablet 25 mg PO DAILY 09/30/17 01/08/25 History gabapentin 300 mg capsule 300 mg PO DAILY 09/30/17 01/08/25 History (Neurontin) hydrochlorothiazide 25 mg tablet 25 mg PO DAILY 09/30/17 01/08/25 History levothyroxine 100 mcg tablet 100 mcg PO DAILY 09/30/17 01/08/25 History liraglutide 0.6 mg/0.1 mL (18 mg/3 1.2 mg SQ BREAKFAST 09/30/17 01/08/25 History mL) subcutaneous pen injector (Victoza 2-Salomón) lisinopril 40 mg tablet 40 mg PO DAILY 09/30/17 01/08/25 History metformin 500 mg 24 hr 500 mg PO BID 09/30/17 01/08/25 History tablet,extended release (gastric retention) pentoxifylline 400 mg 1 tab PO TID 09/30/17 01/08/25 History tablet,extended release acetaminophen 500 mg tablet 1,000 mg PO QHS PRN pain 01/08/25 Unknown History (Acetaminophen Extra Strength) cetirizine 10 mg tablet (24Hour 10 mg PO DAILY PRN allergy symptoms 01/08/25 Unknown History Allergy) diosmin complex no.1 630 mg tablet 1 tab PO DAILY 01/08/25 01/08/25 History (Vasculera) fawqcxotvybp-csnrfxtl-osmxvq 1 tab PO DAILY 01/08/25 01/08/25 History tablet (A Thru Z High Potency tablet) simvastatin 20 mg tablet 20 mg PO QHS 01/08/25 01/07/25 History Allergy/AdvReac Type Severity Reaction Status Date / Time enoxaparin (From Lovenox) Allergy Unknown Verified 01/08/25 10:28 oxycodone Allergy Unknown Verified 01/08/25 10:28 Penicillins (PCN) Allergy Unknown Verified 01/08/25 10:28 Surgical History History of lumpectomy of right breast History of lumbar laminectomy History of total replacement of both hip joints History of total bilateral knee replacement (TKR) Social History Smoking Status: Never smoker ROS ROS Narrative Constitutional: Reports fatigue and weakness. Generalized swelling HEENT: Nasal and sinus congestion reports systems reviewed and no addt'l complaints, except as documented Respiratory/Chest: Complain of shortness of breath on mild exertion. Never been a smoker. Denies chronic lung disease. CVS: No chest pain pressure or anginal-like symptoms. Denies chronic heart disease or CHF. Gastrointestinal: Denies coffee ground emesis, hematemesis or vomiting Genitourinary: Denies burning urination or new urinary tract symptoms Musculoskeletal: Denies acute joint pain or limited range of motion. No acute injury Neurologic: Denies seizure-like symptoms. skin: No ulcer. No rash Endocrinology: Reports systems reviewed and no addt'l complaints, except as documented Hematologic/Lymphatic: Reports systems reviewed and no addt'l complaints, except as documented Rest 14 ROS are negative except as mentioned in HPI Vital Signs Vital Signs Vital Signs: 01/08/25 10:28 01/08/25 11:05 01/08/25 11:27 Temperature 97.8 F Temperature Source Oral Pulse Rate 151 H 82 Respiratory Rate 24 H 24 H Respiratory Effort Respiratory Pattern Blood Pressure 126/74 H 99/58 L Blood Pressure Mean 91 71 Pulse Ox 98 Oxygen Delivery Method Room Air 01/08/25 11:31 01/08/25 12:00 Temperature Temperature Source Pulse Rate 94 Respiratory Rate 19 H Respiratory Effort Normal Non-Labored Respiratory Pattern Tachypnea Blood Pressure 91/60 Blood Pressure Mean 70 Pulse Ox Oxygen Delivery Method Weight Weight: 234 lb 1.6 oz Body Mass Index (BMI) 44.2 Physical Exam Narrative General: Alert, Oriented x3, Cooperative HEENT: Atraumatic, PERRLA, EOMI, Normocephalic Oral: Oral mucosa dry no Gingival or Mucosal Lesions/ Ulcerations Neck: Supple, No JVD, Negative Carotid Bruits Chest wall/Lungs: Air entry decreased in right lung base, right moderate pleural effusion. No crepitation or rhonchi Cardiovascular: Irregular S1-S2 rhythm, No M/G/R Abdomen: Bowel Sounds Present, Soft, mild abdominal distention. Non Tender : No dysuria. No renal angle tenderness. No suprapubic tenderness. Extremities: Bilateral pitting edema, chronic left more than right. capillary Refill Less than 3 Seconds Skin: No rashes, No breakdown. Chronic varicose venous insufficiency Musculoskeletal: No Tenderness to Palpation of Joints or Extremities. ROM limited Neurological: Cranial nerves II-XII grossly intact, DTR 2+/4. No acute focal neurological deficit. Psych/Mental Status: Normal Affect, Appropriate. Results Lab / Micro Data 01/08/25 10:40 01/08/25 10:40 Labs: Laboratory Results - last 24 hr 01/08/25 10:40: WBC 8.6, RBC 4.53, Hgb 12.9, Hct 41.3, MCV 91.2, MCH 28.5, MCHC 31.2 L, RDW Std Deviation 52.7 H, RDW Coeff of Marcial 16.0 H, Plt Count 330, MPV 10.5, Immature Gran % (Auto) 0.600, Neut % (Auto) 72.0 H, Lymph % (Auto) 14.4 L, [place] % (Auto) 7.6, Eos % (Auto) 3.9, Baso % (Auto) 1.5 H, Absolute Neuts (auto) 6.2, Absolute Lymphs (auto) 1.24, Nucleated RBC % 0, PT 15.1 H, INR 1.2, APTT 28.0, Sodium 140, Potassium 4.0, Chloride 105, Carbon Dioxide 23.0, Anion Gap 12, BUN 40 H, Creatinine 1.37 H, Estim Creat Clear Calc 33.72, Est GFR (MDRD) Af Amer 47 L, Est GFR (MDRD) Non-Af 39 L, BUN/Creatinine Ratio 29.2 H, Glucose 145 H, Calcium 10.1, Troponin I High Sens 13, B-Natriuretic Peptide 230.5 H, TSH 4.920 H Rhythm Strip Rhythm Strip: A-fib Rate: 118 Ectopy: None Assessment & Plan Assessment/Plan (1) Atrial fibrillation with rapid ventricular response: (2) Pleural effusion on right: PLAN: Plan This 84-year-old female is being admitted for new onset A-fib with RVR and right moderate pleural effusion, weight gain and generalized swelling. 1. New onset A-fib with RVR: Patient is being admitted to PCU. EKG shows A-fib RVR 118 beats minute, QRS 140 ms, RBBB, LAFB bifascicular block. Previous EKG also had bifascicular block but normal sinus rhythm in 2013. Heart rate is controlled after Cardizem 20 IV in ED. BP also recovered from /95 after Cardizem. Started on metoprolol 25 mg twice daily. 2D echo is ordered. Plan for anticoagulation after thoracocentesis tomorrow. TSH elevated. Free T4 ordered. 2. Generalized swelling, weight gain, abdominal swelling, possible ascites and moderate right pleural effusion suggestive of possible heart failure: Chest x-ray daily reviewed and shows pulmonary venous congestion, right moderate pleural effusion and basilar atelectasis along with cardiomegaly. Ultrasound-guided thoracocentesis along with pleural fluid analysis labs ordered. Low-dose diuretic if tolerated by hemodynamics. BNP elevated 230. 3. Chronic venous insufficiency with varicose vein LLE worse than RLE, lipodermatosclerosis: Patient follows with vascular surgeon Dr. Allan Carpenter. On venous pump. SEFERINO milligan. Denies history of DVT. 4. Hyperglycemia: A1c ordered for tomorrow AM. 5. Other comorbidities include chronic degenerative arthritis of knees: PT and OT ordered Living will/advanced directive/end of life care: Patient does not have living will or advanced directive. After discussion of benefits/risks procedures involved with full code, DNR CC arrest and DNR CC, the patient and her opted for full code. Patient does want artificial life support including intubation, tube feed, ventilator and/chest compression, central venous catheter, vasopressor and DC shock if needed Total time spent in [id number] encounter in discussion of advanced directive 17 minutes. Laboratory Results 01/08/25 10:40: WBC 8.6, RBC 4.53, Hgb 12.9, Hct 41.3, MCV 91.2, MCH 28.5, MCHC 31.2 L, RDW Std Deviation 52.7 H, RDW Coeff of Marcial 16.0 H, Plt Count 330, MPV 10.5, Immature Gran % (Auto) 0.600, Neut % (Auto) 72.0 H, Lymph % (Auto) 14.4 L, [place] % (Auto) 7.6, Eos % (Auto) 3.9, Baso % (Auto) 1.5 H, Absolute Neuts (auto) 6.2, Absolute Lymphs (auto) 1.24, Nucleated RBC % 0, PT 15.1 H, INR 1.2, APTT 28.0, Sodium 140, Potassium 4.0, Chloride 105, Carbon Dioxide 23.0, Anion Gap 12, BUN 40 H, Creatinine 1.37 H, Estim Creat Clear Calc 33.72, Est GFR (MDRD) Af Amer 47 L, Est GFR (MDRD) Non-Af 39 L, BUN/Creatinine Ratio 29.2 H, Glucose 145 H, Calcium 10.1, Troponin I High Sens 13, B-Natriuretic Peptide 230.5 H, TSH 4.920 H Clinical Impression(s) from Imaging Studies Chest X-Ray 01/08/25 11:30 IMPRESSION: Cardiomegaly, CHF and right pleural effusion with right basilar atelectasis. Reading Location: [facility] Charges/Coding Visit Charges Inpatient E&M: 95764 Init Hosp L3 Procedures Hospitalists Procedures: 40217 Advncd Care Plan 30 Min
[2025-01-08] MEDS: Metoprolol Tartrate 25 MG Tablet PO ×2 (16:42→20:48)
--- NOTE | 2025-01-08 17:05 | CASEMGMT ---
Care Management Face to Face with patient for initial transition planning/care coordination assessment in the ED.? This typewriter operator automatic introduced self and role at [facility]. Patient alert and oriented. Patient willing to participate in assessment and is able to answer all questions appropriately.? Care providers, pharmacy, and demographics verified. Admitting Diagnosis:? AFIB, new onset Other diagnosis history: ?osteoarthrosis, h/o cancer PCP: ?[facility] Specialists: ?[facility] Preferred Pharmacy: ?[facility] Insurance: ?[employer] Prescription Benefit: Yes Living Will/HPOA: ?None LNOK: Living Arrangements: ?Lives with in one story home, independent with ADLs and IADLs Transportation: ? drives patient DME: ?[facility] HHC: ?[facility] HH in past SNF/Rehab: none Community Resources: none Behavioral Health History: ?none Patient goals: Patient wishes to discharge home.? Patient denies any further needs or concerns at this time. Disposition Plan: admission to acute; RN CM/SW to follow for discharge planning needs that may arise. Kay Cox, CYLINDER SANDER OPERATOR, PRESS SETTER
[2025-01-08] MEDS: Furosemide 20 MG/2 ML VIAL IV (18:50)
[2025-01-08] MEDS: 0.9% Saline Lock 10 ML Syringe IV (18:50)
[2025-01-08] MEDS: Heparin Injection (Vial) 5,000 UNIT/ML VIAL 5000 UNIT SC (21:07)
[2025-01-09] VITALS (17 sets, daily range): BP systolic 74–136; BP diastolic 54–100; PULSE 88–134; RESP 16–29; TEMP 36.1–36.8; O2SAT 93–100; BMI 41.1
--- NOTE | 2025-01-09 05:55 | ECHOD_ITS ---
Reason For Study Reason For Study: DYSPNEA, EDEMA, PLEURAL EFFUSIONS Procedure This was a 2D Doppler, Color Flow transthoracic echocardiogram. Exam performed portable in ICU/CCU. Left Ventricle Normal LV size. Mild concentric left ventricular hypertrophy. Estimated LVEF 64%. At least stage I diastolic dysfunction. Right Ventricle Normal right ventricle. Atria There is severe biatrial dilatation. Mitral Valve Severe mitral valve annular calcification. Moderate mitral valve regurgitation. Tricuspid Valve Moderate (2+) tricuspid valve insufficiency. Right ventricular systolic pressure estimated to be 60 mmHg. Aortic Valve Mild to moderate aortic valve calcification. Mild aortic valve stenosis. Mean peak gradient 9 mmHg. Pulmonic Valve The pulmonic valve is not well visualized. Great Vessels The aortic root is not well visualized. Pericardium/Pleural No pericardial effusion. Moderate size left pleural effusion. MMode/2D Measurements & Calculations LVIDd: 3.6 cm IVSd: 1.2 cm LVOT diam: 1.9 cm LVIDs: 1.5 cm LVPWd: 1.5 cm LVOT area: 2.8 cm2 RVDd: 3.6 cm FS: 57.7 % LA dimension: 5.3 cm asc Aorta Diam: 3.1 cm LAV(MOD- bp): 68.2 ml LAV(MOD- bp) Indexed: 34.9 ml/m2 LAV(MOD- sp2): 73.8 ml LAV(MOD- sp4): 59.9 ml SV(MOD- sp4): 24.9 ml LVAd ap4: 15.6 cm2 LVAd ap2: 14.5 cm2 LVLd ap4: 5.6 cm LVLd ap2: 5.5 cm SI(MOD- sp4): 12.7 ml/m2 EDV(MOD-sp4): 35.3 ml EDV(MOD-sp2): 30.5 ml EDV(sp4-el): 36.6 ml EDV(sp2-el): 32.4 ml LVAs ap4: 7.7 cm2 LVAs ap2: 6.9 cm2 LVLs ap4: 5.0 cm LVLs ap2: 4.5 cm ESV(MOD-sp4): 10.4 ml ESV(MOD-sp2): 8.5 ml ESV(sp4-el): 10.1 ml ESV(sp2-el): 8.9 ml EF(MOD-sp4): 70.5 % EF(MOD-sp2): 72.2 % EF(sp4-el): 72.4 % SV(MOD-sp2): 22.0 ml SV(sp4-el): 26.5 ml Ao sinus diam: 2.8 cm SI(MOD-sp2): 11.3 ml/m2 Ao ST Junction: 2.2 cm LA dimension(2D): 5.1 cm LA A4 area: 22.0 cm2 TAPSE: 1.1 cm RA A4 area: 18.6 cm2 Time Measurements MV dec time: 0.14 sec Doppler Measurements & Calculations MV E max mehnaz: 163.3 cm/sec MV V2 max: 187.0 cm/sec Ao V2 max: 197.5 cm/sec MV max P.0 mmHg Ao max P.6 mmHg MV V2 mean: 142.6 cm/sec Ao V2 mean: 145.1 cm/sec MV mean P.7 mmHg Ao mean P.3 mmHg MV V2 VTI: 25.3 cm Ao V2 VTI: 34.9 cm AV (velocity ratio): 0.49 MVA(VTI): 1.9 cm2 JOSE(I,D): 1.4 cm2 JOSE(V,D): 1.5 cm2 LV V1 max: 107.8 cm/sec SV(LVOT): 48.1 ml PA V2 max: 56.5 cm/sec LV V1 max P.7 mmHg LV V1 mean P.9 mmHg LV V1 mean: 82.5 cm/sec LV V1 VTI: 17.0 cm TR max mehnaz: 333.6 cm/sec TR max P.5 mmHg ECHO/Echo Complete Interpretation Summary Mild concentric left ventricular hypertrophy. Estimated LVEF 64%. At least stage I diastolic dysfunction. There is severe biatrial dilatation. Severe mitral valve annular calcification. Moderate mitral valve regurgitation. Moderate (2+) tricuspid valve insufficiency. Right ventricular systolic pressure estimated to be 60 mmHg. Mild to moderate aortic valve calcification. Mild aortic valve stenosis. Mean p eak gradient 9 mmHg. Moderate size left pleural effusion. Ordering Physician: Supa Brumfield Performed By: Zeynep Live RDCS
[2025-01-09 06:59] LABS: Absolute Lymphocyte Count 0.81 X10^3/uL (0.83-4.51); Absolute Neutrophil Count 5.8 X10^3/uL (2.0-7.7); Basophil# 0.08 X10^3/uL; Basophil% 1.1 % (0-1); Eosinophil# 0.27 X10^3/uL; Eosinophils% 3.6 % (0-5); Hematocrit 39.4 % (37-47); Hemoglobin 12.2 g/dL (12.0-15.0); Lymphocyte # 0.81 X10^3/ul (0.83-4.51); Lymphocyte % 10.8 % (19-41); Mean Corpuscular Hgb 28.3 pg (27.0-32.0); Mean Corpuscular Volume 91.4 fL (81-99); Mean Platelet Vol. 10.1 fl (6.2-12.0); Monocyte# 0.55 X10^3/uL; Monocyte% 7.3 % (0-10); NRBC Flagged by Analyzer 0 % (0-5); Neutrophil # 5.76 X10^3/uL (2.7-7.7); Neutrophil % 76.8 % (47-70); Platelet Count 275 K/mm3 (150-450); RBC Distribution Width SD 53.1 fl (35.1-43.9); Red Blood Count 4.31 M/mm3 (4.2-5.4); White Blood Count 7.5 K/mm3 (4.4-11.0)
[2025-01-09 07:26] LABS: ALB/GLOB Ratio 0.7 RATIO (0.9-2.4); Anion Gap 3 (5-15); BUN 38 mg/dL (7-18); BUN/Creat Ratio 31.9 RATIO (10-20); Calcium,Total 9.7 mg/dL (8.5-10.1); Chloride 108 mmol/L (98-107); Cholesterol 118 mg/dL (200); Creatinine, Serum 1.19 mg/dL (0.55-1.02); EST Glomerular Filtration Rate 46 mL/min (>60); Est Glom Filt Rate - Afr Amer 55 mL/min (>60); Estimated Creatinine Clearance 37.21 ml/min; Globulin 4.4 g/dL (2.2-4.2); Glucose 136 mg/dL (74-106); High Density Lipoprotein 74 mg/dL; LDH 160 U/L (84-246); Potassium 4.4 mmol/L (3.5-5.1); Protein, Total 7.5 g/dL (6.4-8.2); Sodium Level 141 mmol/L (136-145); T4 Free Direct 1.21 ng/dL (0.76-1.46); Triglycerides 86 mg/dL; Very Low Density Lipoprotein 17 mg/dL (5-40)
[2025-01-09 07:58] LABS: Phosphorus 4.1 mg/dL (2.5-4.9)
[2025-01-09] MEDS: Metoprolol Tartrate 5 MG/5 ML Vial IV (08:20)
[2025-01-09] MEDS: 0.9% Saline Lock 10 ML Syringe IV (08:20)
--- NOTE | 2025-01-09 08:29 | PCM.PN.HOSP ---
Reason for Visit Reason for Visit: Diagnoses Unspecified atrial fibrillation (01/08/25) Pleural effusion, not elsewhere classified (01/08/25) Objective Data Objective Data Vital Signs: Vital Signs Temp Pulse Resp BP Pulse Ox O2 Del Method O2 Flow Rate 98 F 125 H 20 H 136/100 H 95 Nasal Cannula 2 01/09/25 03:30 01/09/25 08:20 01/09/25 03:30 01/09/25 08:20 01/09/25 06:46 01/09/25 06:46 01/09/25 06:46 Oxygen Flow Rate (L/min) 2 Oxygen Delivery Method Nasal Cannula Weight: 217 lb 12.8 oz Body Mass Index (BMI) 41.1 Lab / Micro Data 01/09/25 06:47 01/09/25 06:47 Labs: Laboratory Results - last 24 hr 01/08/25 10:40: WBC 8.6, RBC 4.53, Hgb 12.9, Hct 41.3, MCV 91.2, MCH 28.5, MCHC 31.2 L, RDW Std Deviation 52.7 H, RDW Coeff of Marcial 16.0 H, Plt Count 330, MPV 10.5, Immature Gran % (Auto) 0.600, Neut % (Auto) 72.0 H, Lymph % (Auto) 14.4 L, Jewell % (Auto) 7.6, Eos % (Auto) 3.9, Baso % (Auto) 1.5 H, Absolute Neuts (auto) 6.2, Absolute Lymphs (auto) 1.24, Nucleated RBC % 0, PT 15.1 H, INR 1.2, APTT 28.0, Sodium 140, Potassium 4.0, Chloride 105, Carbon Dioxide 23.0, Anion Gap 12, BUN 40 H, Creatinine 1.37 H, Estim Creat Clear Calc 33.72, Est GFR (MDRD) Af Amer 47 L, Est GFR (MDRD) Non-Af 39 L, BUN/Creatinine Ratio 29.2 H, Glucose 145 H, Calcium 10.1, Troponin I High Sens 13, B-Natriuretic Peptide 230.5 H, TSH 4.920 H 01/09/25 06:47: WBC 7.5, RBC 4.31, Hgb 12.2, Hct 39.4, MCV 91.4, MCH 28.3, MCHC 31.0 L, RDW Std Deviation 53.1 H, RDW Coeff of Marcial 16.0 H, Plt Count 275, MPV 10.1, Immature Gran % (Auto) 0.400, Neut % (Auto) 76.8 H, Lymph % (Auto) 10.8 L, Jewell % (Auto) 7.3, Eos % (Auto) 3.6, Baso % (Auto) 1.1 H, Absolute Neuts (auto) 5.8, Absolute Lymphs (auto) 0.81 L, Nucleated RBC % 0, Sodium 141, Potassium 4.4, Chloride 108 H, Carbon Dioxide 30.0, Anion Gap 3 L, BUN 38 H, Creatinine 1.19 H, Estim Creat Clear Calc 37.21, Est GFR (MDRD) Af Amer 55 L, Est GFR (MDRD) Non-Af 46 L, BUN/Creatinine Ratio 31.9 H, Glucose 136 H, Calcium 9.7, Phosphorus 4.1, Magnesium 2.0, Lactate Dehydrogenase 160, Total Protein 7.5, Globulin 4.4 H, Albumin/Globulin Ratio 0.7 L, Triglycerides 86, Cholesterol 118, LDL Cholesterol 27, VLDL Cholesterol 17, HDL Cholesterol 74, Free T4 1.21 Radiography Diagnostic Testing: Radiology Impression Chest X-Ray 01/08/25 11:30 IMPRESSION: Cardiomegaly, CHF and right pleural effusion with right basilar atelectasis. Reading Location: [place] [address] Rhythm Strip Rhythm Strip: A-fib Rate: 118 Ectopy: None Physical Exam Narrative Patient complain of a stuffy nose, states cannot breathe. Blood pressure improved from yesterday. No chest pain. A-fib RVR. Heart rate 120s to 130s per minute Physical exam General: Alert, Oriented x3, Cooperative HEENT: Atraumatic, PERRLA, EOMI, Normocephalic Oral: Oral mucosa dry no Gingival or Mucosal Lesions/ Ulcerations Neck: Supple, No JVD, Negative Carotid Bruits Chest wall/Lungs: Air entry decreased in right lung base, right moderate pleural effusion. No crepitation or rhonchi Cardiovascular: Irregular S1-S2 rhythm, No M/G/R Abdomen: Bowel Sounds Present, Soft, mild abdominal distention. Non Tender : No dysuria. No renal angle tenderness. No suprapubic tenderness. Extremities: Bilateral pitting edema, chronic left more than right. capillary Refill Less than 3 Seconds Skin: No rashes, No breakdown. Chronic varicose venous insufficiency Musculoskeletal: No Tenderness to Palpation of Joints or Extremities. ROM limited Neurological: Cranial nerves II-XII grossly intact, DTR 2+/4. No acute focal neurological deficit. Psych/Mental Status: Normal Affect, Appropriate. Assessment & Plan Assessment/Plan (1) Atrial fibrillation with rapid ventricular response: (2) Pleural effusion on right: PLAN: Plan This 84-year-old female is being admitted for new onset A-fib with RVR and right moderate pleural effusion, weight gain and generalized swelling. 1. New onset A-fib with RVR: Patient is being admitted to PCU. EKG shows A-fib RVR 118 beats minute, QRS 140 ms, RBBB, LAFB bifascicular block. Previous EKG also had bifascicular block but normal sinus rhythm in 2012. Heart rate is controlled after Cardizem 20 IV in ED. BP also recovered from /95 after Cardizem. Started on metoprolol 25 mg twice daily. 2D echo is ordered. Plan for anticoagulation after thoracocentesis tomorrow. TSH elevated. Free T4 ordered. 01/09: TSH 4.92, Free T4 normal 1.21. Metoprolol dose increased to 50 mg twice daily and started on Cardizem oral 60 mg Q6 hourly the blood pressure got better systolic 130. BMP improves further will increase Lasix dose. [employer] Specialist consulted. Etiology of A-fib unclear possible related to new onset heart failure 2. Generalized swelling, weight gain, abdominal swelling, possible ascites and moderate right pleural effusion suggestive of possible heart failure: Chest x-ray daily reviewed and shows pulmonary venous congestion, right moderate pleural effusion and basilar atelectasis along with cardiomegaly. Ultrasound-guided thoracocentesis along with pleural fluid analysis labs ordered. Low-dose diuretic if tolerated by hemodynamics. BNP elevated 230. 01/09: Plan for thoracocentesis. Ultrasound abdomen ordered to rule out ascites. Gradually increased diuresis as per tolerated. Rest as mentioned above. 3. Chronic venous insufficiency with varicose vein LLE worse than RLE, lipodermatosclerosis: Patient follows with vascular surgeon Dr. Allan Carpenter. On venous pump. SEFERINO milligan. Denies history of DVT. 4. Hyperglycemia: A1c ordered for tomorrow AM. 5. Other comorbidities include chronic degenerative arthritis of knees: PT and OT ordered Living will/advanced directive/end of life care: Patient does not have living will or advanced directive. After discussion of benefits/risks procedures involved with full code, DNR CC arrest and DNR CC, the patient and her opted for full code. Patient does want artificial life support including intubation, tube feed, ventilator and/chest compression, central venous catheter, vasopressor and DC shock if needed Laboratory Results 01/08/25 10:40: WBC 8.6, RBC 4.53, Hgb 12.9, Hct 41.3, MCV 91.2, MCH 28.5, MCHC 31.2 L, RDW Std Deviation 52.7 H, RDW Coeff of Marcial 16.0 H, Plt Count 330, MPV 10.5, Immature Gran % (Auto) 0.600, Neut % (Auto) 72.0 H, Lymph % (Auto) 14.4 L, Jewell % (Auto) 7.6, Eos % (Auto) 3.9, Baso % (Auto) 1.5 H, Absolute Neuts (auto) 6.2, Absolute Lymphs (auto) 1.24, Nucleated RBC % 0, PT 15.1 H, INR 1.2, APTT 28.0, Sodium 140, Potassium 4.0, Chloride 105, Carbon Dioxide 23.0, Anion Gap 12, BUN 40 H, Creatinine 1.37 H, Estim Creat Clear Calc 33.72, Est GFR (MDRD) Af Amer 47 L, Est GFR (MDRD) Non-Af 39 L, BUN/Creatinine Ratio 29.2 H, Glucose 145 H, Calcium 10.1, Troponin I High Sens 13, B-Natriuretic Peptide 230.5 H, TSH 4.920 H 01/09/25 06:47: WBC 7.5, RBC 4.31, Hgb 12.2, Hct 39.4, MCV 91.4, MCH 28.3, MCHC 31.0 L, RDW Std Deviation 53.1 H, RDW Coeff of Marcial 16.0 H, Plt Count 275, MPV 10.1, Immature Gran % (Auto) 0.400, Neut % (Auto) 76.8 H, Lymph % (Auto) 10.8 L, Jewell % (Auto) 7.3, Eos % (Auto) 3.6, Baso % (Auto) 1.1 H, Absolute Neuts (auto) 5.8, Absolute Lymphs (auto) 0.81 L, Nucleated RBC % 0, Sodium 141, Potassium 4.4, Chloride 108 H, Carbon Dioxide 30.0, Anion Gap 3 L, BUN 38 H, Creatinine 1.19 H, Estim Creat Clear Calc 37.21, Est GFR (MDRD) Af Amer 55 L, Est GFR (MDRD) Non-Af 46 L, BUN/Creatinine Ratio 31.9 H, Glucose 136 H, Hemoglobin A1c Pending, Calcium 9.7, Phosphorus 4.1, Magnesium 2.0, Lactate Dehydrogenase 160, Total Protein 7.5, Globulin 4.4 H, Albumin/Globulin Ratio 0.7 L, Triglycerides 86, Cholesterol 118, LDL Cholesterol 27, VLDL Cholesterol 17, HDL Cholesterol 74, Free T4 1.21 Clinical Impression(s) from Imaging Studies Chest X-Ray 01/08/25 11:30 IMPRESSION: Cardiomegaly, CHF and right pleural effusion with right basilar atelectasis. Reading Location: [facility] Charges/Coding Visit Charges Inpatient E&M: 76842 Subs Hosp L3
--- NOTE | 2025-01-09 08:30 | US_ITS ---
PROCEDURE: ABDOMEN LIMITED REASON FOR EXAM: Ascites survey. COMPARISON: None FINDINGS: The 4 quadrants were assessed. No evidence of ascites. US/Abdomen Limited IMPRESSION: No evidence of ascites. Reading Location: [place] [address]
[2025-01-09 08:38] LABS: Hemoglobin A1c 6.7 % (3.8-5.6)
[2025-01-09] MEDS: Loratadine 10 MG Tablet PO (08:42)
[2025-01-09] MEDS: guaiFENesin/D-Methorphan TAB.SR.12H 2 TABLET PO ×2 (08:43→20:24)
[2025-01-09] MEDS: Fluticasone 0.05% 1 SPRAY NASAL.SRY 2 SPRAY NASAL ×2 (08:43→20:24)
[2025-01-09] MEDS: dilTIAZem 60 MG Tablet PO ×3 (08:58→20:25)
[2025-01-09] MEDS: Metoprolol Tartrate 50 MG Tablet PO ×2 (08:58→20:26)
--- NOTE | 2025-01-09 09:36 | PCM.CONS.C ---
Assessment & Plan Assessment/Plan (1) Atrial fibrillation with rapid ventricular response: PLAN: Agree with controlling ventricular rate with beta-blockers and calcium channel blockers. Recommend chronic oral anticoagulation for prevention of thromboembolic phenomenon. Discussed with patient in detail. She understands the risks and benefits. Wishes to proceed. Start on apixaban 5 mg twice daily after her thoracentesis. (2) CHF (congestive heart failure): PLAN: Check echocardiogram. Continue furosemide. (3) Pleural effusion on right: PLAN: For thoracentesis. (4) Hypertension: QUALIFIERS: Hypertension type: essential hypertension Qualified Code(s): I10 - Essential (primary) hypertension PLAN: Beta-blockers, calcium channel blockers (5) Hypothyroidism: PLAN: As per internal medicine. (6) Type 2 diabetes mellitus: QUALIFIERS: Diabetes mellitus complication status: with unspecified complications Diabetes mellitus shelter insulin use: unspecified shelter insulin use status Qualified Code(s): E11.8 - Type 2 diabetes mellitus with unspecified complications PLAN: As per internal medicine. HPI Consult Data Date of Consult: 01/09/25 HPI Narrative Reason for Consultation: Atrial fibrillation HPI Narrative: This patient has past medical history significant for hypertension, diabetes mellitus and dyslipidemia. She presented to her primary care physician with complaints of sinus drainage and fluid in the abdomen. There she was noted to be in atrial fibrillation with rapid ventricular response. Subsequently she was sent to the emergency room. Per patient, she has been having an upper respiratory tract infection for the past 4 to 5 weeks. For the past week or so, she started noticing fluid retention. According to her, she has been noticing fluid in the abdomen. She has chronic lower extremity edema and denies any recent change to that. Recently also complaining of shortness of breath with exertion. No chest pain or tightness. Complains of occasional palpitations. Per patient, she has not been able to lie flat in the bed lately because of increased sinus drainage. [facility] Medical History Venous stasis ulcer Hyperpigmentation of skin Lipodermatosclerosis of both lower extremities Right leg swelling Left leg swelling Varicose veins of lower extremity with inflammation, 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 Chronic venous insufficiency Generalized osteoarthrosis History of right breast cancer Cardiomegaly Home Medications ?Medication ?Instructions ?Recorded ?Last Taken ?Type amlodipine 5 mg tablet 5 mg PO BID 09/30/17 01/08/25 History aspirin 81 mg chewable tablet 81 mg PO DAILY 09/30/17 01/08/25 History atenolol 25 mg tablet 25 mg PO DAILY 09/30/17 01/08/25 History gabapentin 300 mg capsule 300 mg PO DAILY 09/30/17 01/08/25 History (Neurontin) hydrochlorothiazide 25 mg tablet 25 mg PO DAILY 09/30/17 01/08/25 History levothyroxine 100 mcg tablet 100 mcg PO DAILY 09/30/17 01/08/25 History liraglutide 0.6 mg/0.1 mL (18 mg/3 1.2 mg SQ BREAKFAST 09/30/17 01/08/25 History mL) subcutaneous pen injector (Victoza 2-Salom[place]) lisinopril 40 mg tablet 40 mg PO DAILY 09/30/17 01/08/25 History metformin 500 mg 24 hr 500 mg PO BID 09/30/17 01/08/25 History tablet,extended release (gastric retention) pentoxifylline 400 mg 1 tab PO TID 09/30/17 01/08/25 History tablet,extended release acetaminophen 500 mg tablet 1,000 mg PO QHS PRN pain 01/08/25 Unknown History (Acetaminophen Extra Strength) cetirizine 10 mg tablet (24Hour 10 mg PO DAILY PRN allergy symptoms 01/08/25 Unknown History Allergy) diosmin complex no.1 630 mg tablet 1 tab PO DAILY 01/08/25 01/08/25 History (Vasculera) agyfjcsccbub-jciyuqzx-sgprhs 1 tab PO DAILY 01/08/25 01/08/25 History tablet (A Thru Z High Potency tablet) simvastatin 20 mg tablet 20 mg PO QHS 01/08/25 01/07/25 History Allergy/AdvReac Type Severity Reaction Status Date / Time enoxaparin (From Lovenox) Allergy Unknown Verified 01/08/25 10:28 oxycodone Allergy Unknown Verified 01/08/25 10:28 Penicillins (PCN) Allergy Unknown Verified 01/08/25 10:28 Surgical History History of lumpectomy of right breast History of lumbar laminectomy History of total replacement of both hip joints History of total bilateral knee replacement (TKR) Social History Smoking Status: Never smoker Physical Exam Narrative Comfortable. No apparent distress. Heart sounds 1 and 2 noted. Tachycardic. Irregularly irregular. Chest examination shows decreased breath sounds bilaterally. Alert oriented x 3. Trace bilateral ankle edema. Risk Stratification Risk Stratification Applicable: No Objective Data Vital Signs: Vital Signs Temp Pulse Resp BP Pulse Ox O2 Del Method O2 Flow Rate 97.8 F 113 H 25 H 111/76 96 Nasal Cannula 2 01/09/25 08:34 01/09/25 08:58 01/09/25 08:34 01/09/25 09:00 01/09/25 08:49 01/09/25 08:49 01/09/25 08:49 Oxygen Flow Rate (L/min) 2 Oxygen Delivery Method Nasal Cannula Weight: 217 lb 12.8 oz Body Mass Index (BMI) 41.1 Lab / Micro Data Attestation: I reviewed the patient's lab results. 01/09/25 06:47 01/09/25 06:47 Labs: Laboratory Results - last 24 hr 01/08/25 10:40: WBC 8.6, RBC 4.53, Hgb 12.9, Hct 41.3, MCV 91.2, MCH 28.5, MCHC 31.2 L, RDW Std Deviation 52.7 H, RDW Coeff of Marcial 16.0 H, Plt Count 330, MPV 10.5, Immature Gran % (Auto) 0.600, Neut % (Auto) 72.0 H, Lymph % (Auto) 14.4 L, Woodruff % (Auto) 7.6, Eos % (Auto) 3.9, Baso % (Auto) 1.5 H, Absolute Neuts (auto) 6.2, Absolute Lymphs (auto) 1.24, Nucleated RBC % 0, PT 15.1 H, INR 1.2, APTT 28.0, Sodium 140, Potassium 4.0, Chloride 105, Carbon Dioxide 23.0, Anion Gap 12, BUN 40 H, Creatinine 1.37 H, Estim Creat Clear Calc 33.72, Est GFR (MDRD) Af Amer 47 L, Est GFR (MDRD) Non-Af 39 L, BUN/Creatinine Ratio 29.2 H, Glucose 145 H, Calcium 10.1, Troponin I High Sens 13, B-Natriuretic Peptide 230.5 H, TSH 4.920 H 01/09/25 06:47: WBC 7.5, RBC 4.31, Hgb 12.2, Hct 39.4, MCV 91.4, MCH 28.3, MCHC 31.0 L, RDW Std Deviation 53.1 H, RDW Coeff of Marcial 16.0 H, Plt Count 275, MPV 10.1, Immature Gran % (Auto) 0.400, Neut % (Auto) 76.8 H, Lymph % (Auto) 10.8 L, Woodruff % (Auto) 7.3, Eos % (Auto) 3.6, Baso % (Auto) 1.1 H, Absolute Neuts (auto) 5.8, Absolute Lymphs (auto) 0.81 L, Nucleated RBC % 0, Sodium 141, Potassium 4.4, Chloride 108 H, Carbon Dioxide 30.0, Anion Gap 3 L, BUN 38 H, Creatinine 1.19 H, Estim Creat Clear Calc 37.21, Est GFR (MDRD) Af Amer 55 L, Est GFR (MDRD) Non-Af 46 L, BUN/Creatinine Ratio 31.9 H, Glucose 136 H, Hemoglobin A1c 6.7 H, Calcium 9.7, Phosphorus 4.1, Magnesium 2.0, Lactate Dehydrogenase 160, Total Protein 7.5, Globulin 4.4 H, Albumin/Globulin Ratio 0.7 L, Triglycerides 86, Cholesterol 118, LDL Cholesterol 27, VLDL Cholesterol 17, HDL Cholesterol 74, Free T4 1.21 Rhythm Strip Rhythm Strip: A-fib Rate: 118 Ectopy: None Cardiology Labs/Tests 01/08/25 10:40: WBC 8.6, RBC 4.53, Hgb 12.9, Hct 41.3, MCV 91.2, MCH 28.5, MCHC 31.2 L, Plt Count 330, MPV 10.5, Immature Gran % (Auto) 0.600, Neut % (Auto) 72.0 H, Lymph % (Auto) 14.4 L, Woodruff % (Auto) 7.6, Eos % (Auto) 3.9, Baso % (Auto) 1.5 H, Absolute Neuts (auto) 6.2, Nucleated RBC % 0, PT 15.1 H, INR 1.2, APTT 28.0, Sodium 140, Potassium 4.0, Chloride 105, Carbon Dioxide 23.0, Anion Gap 12, BUN 40 H, Creatinine 1.37 H, Est GFR (MDRD) Af Amer 47 L, Est GFR (MDRD) Non-Af 39 L, BUN/Creatinine Ratio 29.2 H, Glucose 145 H, Calcium 10.1, B-Natriuretic Peptide 230.5 H 01/09/25 06:47: WBC 7.5, RBC 4.31, Hgb 12.2, Hct 39.4, MCV 91.4, MCH 28.3, MCHC 31.0 L, Plt Count 275, MPV 10.1, Immature Gran % (Auto) 0.400, Neut % (Auto) 76.8 H, Lymph % (Auto) 10.8 L, Woodruff % (Auto) 7.3, Eos % (Auto) 3.6, Baso % (Auto) 1.1 H, Absolute Neuts (auto) 5.8, Nucleated RBC % 0, Sodium 141, Potassium 4.4, Chloride 108 H, Carbon Dioxide 30.0, Anion Gap 3 L, BUN 38 H, Creatinine 1.19 H, Est GFR (MDRD) Af Amer 55 L, Est GFR (MDRD) Non-Af 46 L, BUN/Creatinine Ratio 31.9 H, Glucose 136 H, Hemoglobin A1c 6.7 H, Calcium 9.7, Phosphorus 4.1, Magnesium 2.0, Triglycerides 86, Cholesterol 118, LDL Cholesterol 27, VLDL Cholesterol 17, HDL Cholesterol 74 Rhythm: EKG: Atrial fibrillation. Right bundle branch block. ECHO: Stress Test: Cardiac Cath: PCI: CT Surgery: Holter monitor: EPS: PPM: CXR: Chest CT Scan: Radiography Diagnostic Testing: Radiology Impression Chest X-Ray 01/08/25 11:30 IMPRESSION: Cardiomegaly, CHF and right pleural effusion with right basilar atelectasis. Reading Location: [place] [address]
--- NOTE | 2025-01-09 14:57 | FLU_PTH ---
PATIENT: JESS JACKSON LOC: [facility] U#:[id number] AGE/SX: 84/F ROOM: ICU09 RE01/08/[address]: Dr. Supa Brumfield MD : 1940 BED: 1 DIS: 01/11/2025 SPEC #: [id number] RECD: 01/09/25 15:36 STATUS: YULY REQ #: [id number] NAA: 01/09/25 14:[address]: Supa Brumfield DEPT: CYTOLOGY RECD BY: Eri Yanez ENTERED: 01/10/25 07:23 SP TYPE: Fluid OTHR DR: MD Dr. Meena Valenzuela MD Tissues: Pleural fluid, NOS Procedures: Special Stain Group II Surgery Specimen Level IV Cytospin Fluid HEADER OPERATION: Ultrasound thoracentesis fluid PRE-OP DIAGNOSIS: Right pleural effusion TISSUE SUBMITTED: Thoracentesis fluid for cytology DIAGNOSIS CYTOLOGY Thoracentesis fluid for cytology (cytospins and cellblock): Negative for malignant cells. See comment. 01/11/2025 COMMENT Clinical correlation and appropriate follow up are necessary. CYTOLOGY STUDY Slides are reviewed. CYTOLOGY GROSS Received is 75 ml of yellow-cloudy fluid labeled with the patient's name and and designated per the requisition as Thoracentesis fluid. Submitted for cytology preparation including cell block. Mr 01/10/2025 TC:5 CPT: 22804,21015
--- NOTE | 2025-01-09 15:21 | PCM.OPRPT ---
Problems Associated Problem List Diagnoses (1) Pleural effusion on right: Multi Select Codes Radiology Radiology US Procedures: 46219 Thoracentesis Operative Report (Standard) Operative Information Date of Procedure: 01/09/25 Pre-Operative Diagnosis: Pleural effusion Post-Operative Diagnosis: Pleural effusion Surgery/Procedure Performed: Ultrasound-guided thoracentesis terrapin fisher: No Type of Anesthesia: Local Procedure Start Time: 15:02 Procedure Stop Time: 15:15 Select all DRAINS/GRAFTS/IMPLANTS that apply: None Estimated Blood Loss: 0 Specimen collected: Yes Description of specimen(s) removed: 100 mL of cloudy yellow fluid was sent to the laboratory for further evaluation Description of surgery: PROCEDURE: Ultrasound Guided Thoracentesis ORDERING PROVIDER: Dr. Brumfield INDICATION: Female, 84 years old. Pleural effusion. PROVIDER: MARY Jordan PROCEDURE: The risks, benefits, and alternatives to the procedure were explained to the patient. The specific risks of bleeding, infection, and pneumothorax requiring chest tube insertion were discussed and accepted. Written informed consent was obtained. The patient was placed in the sitting, upright position. Ultrasonographic evaluation of the bilateral lower pleural spaces was carried out. An adequate pocket was identified in the right lower lobe. The overlying skin was prepped with chlorhexidine and draped in sterile fashion. 2 % lidocaine was administered subcutaneously for local anesthesia. Under ultrasound guidance, a 5-Kittitian thoracentesis needle/catheter system was advanced into the right posterior lower pleural fluid collection. A total of 1300 ml of cloudy yellow colored fluid was drained. The catheter was removed, and a sterile dressing was applied. 100 mL of the fluid collected was sent to the laboratory for further evaluation. The patient tolerated the procedure well. A chest x-ray was ordered. No pneumothorax present. The patient was then transported back to the intensive care unit for continued monitoring. IMPRESSION: Successful ultrasound guided thoracentesis of right pleural effusion. Surgical Findings: None Complications Complications: No
--- NOTE | 2025-01-09 15:22 | RAD_ITS ---
PROCEDURE: Chest radiograph REASON FOR EXAM: Shortness of breath, status post thoracentesis TECHNIQUE: Frontal view of the chest COMPARISON: Yesterday FINDINGS: Interval resolution of the previous right pleural effusion. Interval development of a moderate left pleural effusion. Cardiomediastinal silhouette is grossly intact. No sizable pneumothorax. RAD/Chest Insp/Exp 2 View IMPRESSION: 1. Interval resolution of the previous right pleural effusion. No sizable pneu mothorax. 2. Interval development of a moderate left pleural effusion. Reading Location: [facility]
[2025-01-09 15:45] LABS: Cytology, Body Fluid / CSF SEE PATHOLOGY REPORT
[2025-01-09 17:31] LABS: Appearance/Body Fluid SL CLDY; Auto B Fluid Analyzer BKGD Ct COUNTS W/IN LIMITS (W/IN LIMITS); Body Fluid Total Cells Counted 0.333 10^3/ul; Color/Body Fluid LT YEL; Lymphocytes 69 %; Macrophages 14 %; Monocytes 4 %; Neutrophil (Segs) 12 %; Other Cell Type/BF 1 %; Red Cell Count/Body Fluid 1290 /mm3; Source- Body Fluid PLEURAL FLUID
[2025-01-09 17:32] LABS: Body Fluid Mononuclear WBC % 93.5 %; Body Fluid Polynuclear WBC # 0.021 10^3/uL; Body Fluid Polynuclear WBC % 6.5 %; White Blood Count/Body Fluid 0.321 10^3/uL
[2025-01-09 17:33] LABS: Body Fluid QC Type(s) BF5Q
[2025-01-09 18:07] LABS: Glucose, Body Fluid 142 mg/dL (40-70); LDH,Body Fluid 51 Units/L (Not Establ.); Protein, Body Fluid 2.5 g/dL (Not Establ.)
[2025-01-09] MEDS: APIXABAN 5 MG TABLET PO (20:31)
[2025-01-10] VITALS (7 sets, daily range): BP systolic 103–131; BP diastolic 55–85; PULSE 82–130; RESP 20–26; TEMP 36.4–36.6; O2SAT 92–100; BMI 40.1
[2025-01-10] MEDS: dilTIAZem 60 MG Tablet PO ×3 (05:18→18:19)
--- NOTE | 2025-01-10 08:48 | PCM.PN.HOSP ---
Reason for Visit Reason for Visit: Diagnoses Hypothyroidism, unspecified (01/08/25) Type 2 diabetes mellitus with unspecified complications (01/08/25) Essential (primary) hypertension (01/08/25) Unspecified atrial fibrillation (01/08/25) Heart failure, unspecified (01/08/25) Pleural effusion, not elsewhere classified (01/08/25) Objective Data Objective Data Vital Signs: Vital Signs Temp Pulse Resp BP Pulse Ox O2 Del Method O2 Flow Rate 97.9 F 105 H 20 H 121/80 H 96 Nasal Cannula 2 01/10/25 05:30 01/10/25 05:30 01/10/25 05:30 01/10/25 05:30 01/10/25 05:30 01/10/25 05:30 01/10/25 05:30 Oxygen Flow Rate (L/min) 2 Oxygen Delivery Method Nasal Cannula Weight: 212 lb 8 oz Body Mass Index (BMI) 40.1 Intake & Output: Intake and Output for Last 24 Hours 01/08/25 01/09/25 01/10/25 23:59 23:59 23:59 Output Total 1300 / 1300 Balance -1300 / -1300 Lab / Micro Data 01/09/25 06:47 01/09/25 06:47 Labs: Laboratory Results - last 24 hr 01/08/25 15:45: Fluid pH Cancelled, Fluid Glucose 142 H, Fluid Total Protein 2.5, Fluid LDH 51, Fluid Amylase Cancelled 01/09/25 15:44: Fluid Source PLEURAL FLUID, Fluid Color LT YEL, Fluid Appearance SL CLDY, Fluid WBC 0.321, Fluid RBC 1290, Fluid Tot Cell Count 0.333 H, Fld Polynuclear WBCs # 0.021, Fld Polynuclear WBCs % 6.5, Fluid Mononuclear WBCs 0.300, Fld Mononuclear WBCs % 93.5, Fluid Neutrophils 12, Fluid Lymphocytes 69, Fluid Monocytes 4, Fluid Macrophages 14, Fluid Other Cells 1, Fl Pathologist Comment May follow, Fluid Comment 2 SEE COMMENT Micro: Microbiology 01/09/25 15:44 Fluid - Pleural (Lung) Body Fluid Culture - Preliminary No growth-Final to follow Radiography Diagnostic Testing: Radiology Impression Echocardiogram 01/09/25 05:55 Interpretation Summary Mild concentric left ventricular hypertrophy. Estimated LVEF 64%. At least stage I diastolic dysfunction. There is severe biatrial dilatation. Severe mitral valve annular calcification. Moderate mitral valve regurgitation. Moderate (2+) tricuspid valve insufficiency. Right ventricular systolic pressure estimated to be 60 mmHg. Mild to moderate aortic valve calcification. Mild aortic valve stenosis. Mean peak gradient 9 mmHg. Moderate size left pleural effusion. Ordering Physician: Supa Brumfield Performed By: Zeynep Live, RDCS Abdomen Ultrasound 01/09/25 08:30 IMPRESSION: No evidence of ascites. Reading Location: [facility] Chest X-Ray 01/09/25 15:22 IMPRESSION: 1. Interval resolution of the previous right pleural effusion. No sizable pneumothorax. 2. Interval development of a moderate left pleural effusion. [facility] Rhythm Strip Rhythm Strip: A-fib Rate: 118 Ectopy: None Physical Exam Narrative Overall patient is feeling better. She stated she slept good last night. Heart rate is on fluctuates between 95-105. Afebrile. Blood pressure slightly improved 121/80. Physical exam General: Alert, Oriented x3, Cooperative HEENT: Atraumatic, PERRLA, EOMI, Normocephalic Oral: Oral mucosa dry no Gingival or Mucosal Lesions/ Ulcerations Neck: Supple, No JVD, Negative Carotid Bruits Chest wall/Lungs: Air entry improved on right hand after thoracocentesis. On 2 L of oxygen no crepitation or rhonchi Cardiovascular: Irregular S1-S2 rhythm, No M/G/R Abdomen: Bowel Sounds Present, Soft, mild abdominal distention. Admitted with Non Tender : No dysuria. No renal angle tenderness. No suprapubic tenderness. Extremities: Bilateral pitting edema, chronic left more than right. capillary Refill Less than 3 Seconds Skin: No rashes, No breakdown. Chronic varicose venous insufficiency Musculoskeletal: No Tenderness to Palpation of Joints or Extremities. ROM limited Neurological: Cranial nerves II-XII grossly intact, DTR 2+/4. No acute focal neurological deficit. Psych/Mental Status: Normal Affect, Appropriate. Assessment & Plan Assessment/Plan (1) Atrial fibrillation with rapid ventricular response: (2) Pleural effusion on right: PLAN: Plan This 84-year-old female is being admitted for new onset A-fib with RVR and right moderate pleural effusion, weight gain and generalized swelling. 1. New onset A-fib with RVR: Patient is being admitted to PCU. EKG shows A-fib RVR 118 beats minute, QRS 140 ms, RBBB, LAFB bifascicular block. Previous EKG also had bifascicular block but normal sinus rhythm in 2012. Heart rate is controlled after Cardizem 20 IV in ED. BP also recovered from /95 after Cardizem. Started on metoprolol 25 mg twice daily. 2D echo is ordered. Plan for anticoagulation after thoracocentesis tomorrow. TSH elevated. Free T4 ordered. 01/09: TSH 4.92, Free T4 normal 1.21. Metoprolol dose increased to 50 mg twice daily and started on Cardizem oral 60 mg Q6 hourly the blood pressure got better systolic 130. BMP improves further will increase Lasix dose. Instrumentation Technologist consulted. Etiology of A-fib unclear possible related to new onset heart failure. 01/10: Heart rate is better controlled. Cardizem was increased to 60 mg Q6 hourly. Continue metoprolol. 2. Generalized swelling, weight gain, abdominal swelling, possible ascites and moderate right pleural effusion suggestive from acute on chronic HFpEF: Chest x-ray daily reviewed and shows pulmonary venous congestion, right moderate pleural effusion and basilar atelectasis along with cardiomegaly. Ultrasound-guided thoracocentesis along with pleural fluid analysis labs ordered. Low-dose diuretic if tolerated by hemodynamics. BNP elevated 230. 01/09: Plan for thoracocentesis. Ultrasound abdomen ordered to rule out ascites. Gradually increased diuresis as per tolerated. Rest as mentioned above. 01/10: Patient had 1300 mL fluid taken out from right pleural space. No pneumothorax on follow-up chest x-ray. Respiratory status is improved. Fluid analysis shows transudate as per lights creatinine. Pleural fluid culture no growth. 2D echo reviewed with the patient's .EF 64%, stage I diastolic dysfunction with moderate MR and moderate TR. Mild aortic stenosis. Pulmonary hypertension with RVSP 60 mmHg. Mild left pleural effusion. 3. Chronic venous insufficiency with varicose vein LLE worse than RLE, lipodermatosclerosis: Patient follows with vascular surgeon Dr. Allan Carpenter. On venous pump. SEFERINO hose. Denies history of DVT. 4. Hyperglycemia: A1c ordered for tomorrow AM. A1c 6.7 suggestive of diabetes mellitus. Most likely type II 5. Other comorbidities include chronic degenerative arthritis of knees: PT and OT ordered Living will/advanced directive/end of life care: Patient does not have living will or advanced directive. After discussion of benefits/risks procedures involved with full code, DNR CC arrest and DNR CC, the patient and her opted for full code. Patient does want artificial life support including intubation, tube feed, ventilator and/chest compression, central venous catheter, vasopressor and DC shock if needed Microbiology Past 72 Hours 01/09/25 15:44 Fluid - Pleural (Lung) Body Fluid Culture - Preliminary No growth-Final to follow Laboratory Results 01/08/25 15:45: Fluid pH Cancelled, Fluid Glucose 142 H, Fluid Total Protein 2.5, Fluid LDH 51, Fluid Amylase Cancelled 01/09/25 15:43: Miscellaneous Cytology Pending 01/09/25 15:44: Fluid Source PLEURAL FLUID, Fluid Color LT YEL, Fluid Appearance SL CLDY, Fluid WBC 0.321, Fluid RBC 1290, Fluid Tot Cell Count 0.333 H, Fld Polynuclear WBCs # 0.021, Fld Polynuclear WBCs % 6.5, Fluid Mononuclear WBCs 0.300, Fld Mononuclear WBCs % 93.5, Fluid Neutrophils 12, Fluid Lymphocytes 69, Fluid Monocytes 4, Fluid Macrophages 14, Fluid Other Cells 1, Fl Pathologist Comment May follow, Fluid Comment 2 SEE COMMENT Triglycerides 86, Cholesterol 118, LDL Cholesterol 27, VLDL Cholesterol 17, HDL Cholesterol 74, Free T4 1.21 Clinical Impression(s) from Imaging Studies Chest X-Ray 01/08/25 11:30 IMPRESSION: Cardiomegaly, CHF and right pleural effusion with right basilar atelectasis. Reading Location: [facility] Clinical Impression(s) from Imaging Studies Chest X-Ray 01/08/25 11:30 IMPRESSION: Cardiomegaly, CHF and right pleural effusion with right basilar atelectasis. Reading Location: [facility]- Echocardiogram 01/09/25 05:55 Interpretation Summary Mild concentric left ventricular hypertrophy. Estimated LVEF 64%. At least stage I diastolic dysfunction. There is severe biatrial dilatation. Severe mitral valve annular calcification. Moderate mitral valve regurgitation. Moderate (2+) tricuspid valve insufficiency. Right ventricular systolic pressure estimated to be 60 mmHg. Mild to moderate aortic valve calcification. Mild aortic valve stenosis. Mean peak gradient 9 mmHg. Moderate size left pleural effusion. Abdomen Ultrasound 01/09/25 08:30 IMPRESSION: No evidence of ascites. Reading Location: [place] [id number] Chest X-Ray 01/09/25 15:22 IMPRESSION: 1. Interval resolution of the previous right pleural effusion. No sizable pneumothorax. 2. Interval development of a moderate left pleural effusion. Charges/Coding Addendum Addendum: Total time of the visit including total time spent in counseling or coordination of care, (more than 50% of the total time, spent in obtaining medical information from nurses and other ancillary care providers ,explaining to the patient about labs, imaging, diagnosis and management of active complex medical conditions), discussion with the industrial engineer, review of the echo, thoracocentesis and answering multiple questions of patient's , review of labs and imaging is 35 minutes. Visit Charges Inpatient E&M: 00292 Subs Hosp L3
--- NOTE | 2025-01-10 08:49 | US_ITS ---
PROCEDURE: ABDOMEN LIMITED REASON FOR EXAM: Abdominal swelling. COMPARISON: Comparison is made with prior study dated January 09, 2025. FINDINGS: Liver: Heterogeneous echotexture of the hepatic parenchyma. No focal lesion is seen. Gallbladder: Mildly distended gallbladder lumen. Gallbladder wall is not thickened. Common bile duct: Normal measuring 2.5 mm. Pancreas: Obscured by bowel gas. Visualized portions of the right kidney are unremarkable. No right upper quadrant ascites. The spleen is not enlarged. It measures 9.2 cm x 2.4 cm x 2.8 cm. Tiny bilateral pleural effusions. US/Abdomen Limited IMPRESSION: Heterogeneous echotexture of the hepatic parenchyma. Mildly distended gallbladder lumen. No gallstones are seen. Small bilateral pleural effusions. Reading Location: [id number]
--- NOTE | 2025-01-10 09:09 | PCM.PN.CARD ---
Subjective Subjective Thoracentesis done with removal of about a liter of fluid. Patient reports feeling much better. Objective Data Vital Signs: Vital Signs Temp Pulse Resp BP Pulse Ox O2 Del Method O2 Flow Rate 97.9 F 105 H 20 H 121/80 H 96 Nasal Cannula 2 01/10/25 05:30 01/10/25 05:30 01/10/25 05:30 01/10/25 05:30 01/10/25 05:30 01/10/25 05:30 01/10/25 05:30 Oxygen Flow Rate (L/min) 2 Oxygen Delivery Method Nasal Cannula Weight: 212 lb 8 oz Body Mass Index (BMI) 40.1 Intake & Output: Intake and Output for Last 24 Hours 01/08/25 01/09/25 01/10/25 23:59 23:59 23:59 Output Total 1300 / 1300 Balance -1300 / -1300 Lab / Micro Data 01/09/25 06:47 01/09/25 06:47 Labs: Laboratory Results - last 24 hr 01/08/25 15:45: Fluid pH Cancelled, Fluid Glucose 142 H, Fluid Total Protein 2.5, Fluid LDH 51, Fluid Amylase Cancelled 01/09/25 15:44: Fluid Source PLEURAL FLUID, Fluid Color LT YEL, Fluid Appearance SL CLDY, Fluid WBC 0.321, Fluid RBC 1290, Fluid Tot Cell Count 0.333 H, Fld Polynuclear WBCs # 0.021, Fld Polynuclear WBCs % 6.5, Fluid Mononuclear WBCs 0.300, Fld Mononuclear WBCs % 93.5, Fluid Neutrophils 12, Fluid Lymphocytes 69, Fluid Monocytes 4, Fluid Macrophages 14, Fluid Other Cells 1, Fl Pathologist Comment May follow, Fluid Comment 2 SEE COMMENT Micro: Microbiology 01/09/25 15:44 Fluid - Pleural (Lung) Body Fluid Culture - Preliminary No growth-Final to follow Rhythm Strip Rhythm Strip: A-fib Rate: 118 Ectopy: None Cardiology Labs/Tests Rhythm: EKG: ECHO: Stress Test: Cardiac Cath: PCI: CT Surgery: Holter monitor: EPS: PPM: CXR: Chest CT Scan: Radiography Diagnostic Testing: Radiology Impression Echocardiogram 01/09/25 05:55 Interpretation Summary Mild concentric left ventricular hypertrophy. Estimated LVEF 64%. At least stage I diastolic dysfunction. There is severe biatrial dilatation. Severe mitral valve annular calcification. Moderate mitral valve regurgitation. Moderate (2+) tricuspid valve insufficiency. Right ventricular systolic pressure estimated to be 60 mmHg. Mild to moderate aortic valve calcification. Mild aortic valve stenosis. Mean peak gradient 9 mmHg. Moderate size left pleural effusion. Ordering Physician: Supa Brumfield Performed By: Zeynep Live RDCS Abdomen Ultrasound 01/09/25 08:30 IMPRESSION: No evidence of ascites. Reading Location: [facility] Chest X-Ray 01/09/25 15:22 IMPRESSION: 1. Interval resolution of the previous right pleural effusion. No sizable pneumothorax. 2. Interval development of a moderate left pleural effusion. Reading Location: [facility] Physical Exam Narrative Comfortable. No apparent distress. Heart sounds 1 and 2 noted. Irregularly irregular. Chest examination shows decreased breath sounds bilateral bases. Alert oriented x 3. 1+ lower extremity edema. Assessment & Plan Assessment/Plan (1) Atrial fibrillation with rapid ventricular response: PLAN: Agree with controlling ventricular rate with beta-blockers and calcium channel blockers. Started on apixaban. (2) CHF (congestive heart failure): PLAN: HFpEF. Continue furosemide. (3) Pleural effusion on right: PLAN: Status post thoracentesis. Patient reports feeling better. (4) Hypertension: QUALIFIERS: Hypertension type: essential hypertension Qualified Code(s): I10 - Essential (primary) hypertension PLAN: Beta-blockers, calcium channel blockers (5) Hypothyroidism: PLAN: As per internal medicine. (6) Type 2 diabetes mellitus: QUALIFIERS: Diabetes mellitus complication status: with unspecified complications Diabetes mellitus rodent exterminator insulin use: unspecified custodial insulin use status Qualified Code(s): E11.8 - Type 2 diabetes mellitus with unspecified complications PLAN: As per internal medicine.
[2025-01-10] MEDS: guaiFENesin/D-Methorphan TAB.SR.12H 2 TABLET PO ×2 (09:33→22:21)
[2025-01-10] MEDS: Metoprolol Tartrate 50 MG Tablet PO ×2 (09:33→22:21)
[2025-01-10] MEDS: Loratadine 10 MG Tablet PO (09:33)
[2025-01-10] MEDS: Fluticasone 0.05% 1 SPRAY NASAL.SRY 2 SPRAY NASAL ×2 (09:34→22:21)
[2025-01-10] MEDS: APIXABAN 5 MG TABLET PO ×2 (09:34→22:22)
[2025-01-10] MEDS: Furosemide 40 MG/4 ML Vial IV ×2 (09:34→18:19)
[2025-01-10 10:19] LABS: Absolute Lymphocyte Count 0.82 X10^3/uL (0.83-4.51); Absolute Neutrophil Count 5.4 X10^3/uL (2.0-7.7); Basophil# 0.07 X10^3/uL; Eosinophil# 0.31 X10^3/uL; Eosinophils% 4.4 % (0-5); Hematocrit 38.5 % (37-47); Hemoglobin 11.9 g/dL (12.0-15.0); Lymphocyte # 0.82 X10^3/ul (0.83-4.51); Lymphocyte % 11.6 % (19-41); Mean Corp Hgb Conc 30.9 g/dL (32-36); Mean Corpuscular Volume 90.6 fL (81-99); Mean Platelet Vol. 10.5 fl (6.2-12.0); Monocyte# 0.43 X10^3/uL; Monocyte% 6.1 % (0-10); NRBC Flagged by Analyzer 0 % (0-5); Neutrophil # 5.43 X10^3/uL (2.7-7.7); Neutrophil % 76.8 % (47-70); Platelet Count 262 K/mm3 (150-450); RBC Distribution Width CV 15.9 % (11.6-14.6); RBC Distribution Width SD 52.4 fl (35.1-43.9); Red Blood Count 4.25 M/mm3 (4.2-5.4); White Blood Count 7.1 K/mm3 (4.4-11.0)
--- NOTE | 2025-01-10 10:20 | CASEMGMT ---
Per ICU rounds, PT states that the pt will be safe to return home once medically ready and does not recommend any HH or OP Tx. BASIL CM to pt room at this time to discuss DC planning. Pt at bedside. Pt states that she is likely to DC tomorrow. Pt states that she feels safe returning home with her at that time. Pt states that she has a Hx of OP Tx but states that it is not needed at this time. Pt states that she has the equipment (BGM + supplies) to help manage her DM. Pt has a rollator. Pt is currently on additional oxygen and may qualify for new oxygen needs at the time of DC. Pt states that she does not have oxygen @ home but states that her has a history with [facility] for DME. Pt denies wanting to review a list of local in-network DME companies and states that she would prefer to go through [facility] if she qualifies for new oxygen needs. Pt may also Dc home with a new blood thinning medication. Pt states that she would prefer the Rx to be sent to [facility]. Pt educated about the potential use of a savings card and that it can only be used once per lifetime. CM to follow for the Rx cost. Pt states understanding and denies further questions or concerns at this time. PLAN: Home with pt with potential for new blood thinning Rx and oxygen.
[2025-01-10 10:45] LABS: AST(SGOT) 19 U/L (15-37); Alanine Aminotransfer ALT/SGPT 16 U/L (13-56); Albumin, Serum 2.9 g/dL (3.2-5.0); Alkaline Phosphatase 71 U/L (45-117); Anion Gap 7 (5-15); BUN 37 mg/dL (7-18); BUN/Creat Ratio 34.6 RATIO (10-20); Bilirubin, Direct 0.23 mg/dL (0.00-0.30); Calcium,Total 9.4 mg/dL (8.5-10.1); Chloride 107 mmol/L (98-107); Creatinine, Serum 1.07 mg/dL (0.55-1.02); EST Glomerular Filtration Rate 52 mL/min (>60); Est Glom Filt Rate - Afr Amer 63 mL/min (>60); Globulin 4.1 g/dL (2.2-4.2); Glucose 173 mg/dL (74-106); Magnesium 1.9 mg/dL (1.6-2.6); Phosphorus 3.7 mg/dL (2.5-4.9); Potassium 3.9 mmol/L (3.5-5.1); Sodium Level 139 mmol/L (136-145)
[2025-01-10 14:21] LABS: Pathologist Comment/Body Fluid Reviewed
[2025-01-11] MEDS: dilTIAZem 60 MG Tablet PO ×2 (00:14→05:15)
[2025-01-11 00:15] VITALS: BP 127/76; PULSE 90; RESP 20; TEMP 36.3; O2SAT 95
[2025-01-11 00:26] VITALS: BMI 39.2
[2025-01-11 05:15] VITALS: BP 119/65; PULSE 96; RESP 15; TEMP 36.4; O2SAT 92
[2025-01-11 06:42] LABS: Absolute Lymphocyte Count 1.17 X10^3/uL (0.83-4.51); Absolute Neutrophil Count 4.1 X10^3/uL (2.0-7.7); Basophil# 0.07 X10^3/uL; Basophil% 1.1 % (0-1); Eosinophil# 0.36 X10^3/uL; Eosinophils% 5.7 % (0-5); Hematocrit 37.4 % (37-47); Hemoglobin 11.6 g/dL (12.0-15.0); Lymphocyte # 1.17 X10^3/ul (0.83-4.51); Lymphocyte % 18.7 % (19-41); Mean Corpuscular Hgb 28.2 pg (27.0-32.0); Mean Platelet Vol. 10.6 fl (6.2-12.0); Monocyte# 0.57 X10^3/uL; Monocyte% 9.1 % (0-10); NRBC Flagged by Analyzer 0 % (0-5); Neutrophil # 4.08 X10^3/uL (2.7-7.7); Neutrophil % 65.1 % (47-70); Platelet Count 251 K/mm3 (150-450); RBC Distribution Width CV 15.9 % (11.6-14.6); RBC Distribution Width SD 52.4 fl (35.1-43.9); Red Blood Count 4.11 M/mm3 (4.2-5.4); White Blood Count 6.3 K/mm3 (4.4-11.0)
[2025-01-11 07:10] LABS: Anion Gap 7 (5-15); BUN 41 mg/dL (7-18); Calcium,Total 9.1 mg/dL (8.5-10.1); Chloride 104 mmol/L (98-107); Creatinine, Serum 1.17 mg/dL (0.55-1.02); EST Glomerular Filtration Rate 47 mL/min (>60); Est Glom Filt Rate - Afr Amer 57 mL/min (>60); Estimated Creatinine Clearance 36.83 ml/min; Glucose 122 mg/dL (74-106); Potassium 3.6 mmol/L (3.5-5.1); Sodium Level 140 mmol/L (136-145)
[2025-01-11 07:58] VITALS: O2SAT 92; O2SAT 96
--- NOTE | 2025-01-11 07:58 | DCINST_ITS ---
Discharge Instructions Diet Discharge Diet: Low fat / Low cholesterol, 8 Cup Fluid Restriction and 2000 mg Sodium Diet DC O2, CPAP, BIPAP needs Home O2 Discharge instructions: No Dressing / Incision Discharge Activity: Return to Normal Activity Weight Bearing Status: Weight bearing as tolerated Dressing / Incision Call your doctor if you observe: Fever of 101 or Higher, Coldness, Increased Pain, Numbness or Tingling, Change in Color, Inability to urinate, Inability to have a bowel movement, Shortness of breath, Dizziness, Fainting spells, Swelling in the ankles, Chest pain, Prolonged hiccupping, Increased palpitations (irregular heartbeat) and Calf discomfort Follow Up Care When: IN 2 WEEKS Test Results: Test results from this visit will be discussed in further detail at your follow- up appointment, if applicable. Discharge Plan Admission Admit Date/Time: 01/08/25 12:50 Primary Reason for Your Visit: Acute on chronic HFpEF, right pleural effusion Attending Provider: Supa Brumfield Primary Care Provider: Meena Vasquez Consulting Providers: Gerald Alexandra Instructions Patient Instructions: SERINA RN Thoracentesis Dc Discharge Orders/Prescriptions Prescriptions: New metoprolol tartrate 50 mg Tablet 50 mg PO BID 30 Days Qty: 60 2RF Rx Instructions: Hold for heart less than 50 or systolic blood pressure less than 100 mmHg. Mucinex DM 30-600 mg Tablet Extended Release 12 Hr 1 tab PO BID 7 Days Qty: 14 0RF Eliquis 5 mg Tablet 5 mg PO BID 30 Days Qty: 60 2RF diltiazem HCl [Cardizem CD] 240 mg capsule,extended release 24hr 240 mg PO DAILY 30 Days Qty: 30 2RF Rx Instructions: Hold for heart less than 50 or systolic blood pressure less than 100 mmHg. furosemide 40 mg tablet 40 mg PO DAILY 30 Days Qty: 30 2RF Rx Instructions: Take extra 40 mg dose at 5 PM for increased leg swelling or weight gain 5 po unds in 1 week. Continued levothyroxine 100 MCG tablet 100 mcg PO DAILY gabapentin [Neurontin] 300 MG capsule 300 mg PO DAILY metformin 500 MG tablet,ER [email or web address] 24 hr 500 mg PO BID liraglutide [Victoza 2-Salom[place]] 0.6 MG/0.1 ML pen injector 1.2 mg SQ BREAKFAST pentoxifylline 400 MG tablet 1 tab PO TID simvastatin 20 mg tablet 20 mg PO QHS Patient Comments: [NO ORIGINAL SIG] Vasculera 630 mg tablet 1 tab PO DAILY A Thru Z High Potency Tablet 1 tab PO DAILY cetirizine [24Hour Allergy] 10 mg tablet 10 mg PO DAILY PRN (Reason: allergy symptoms) acetaminophen [Acetaminophen Extra Strength] 500 mg tablet 1,000 mg PO QHS PRN (Reason: pain) Held lisinopril 40 MG tablet 40 mg PO DAILY Hold Instructions: Hold for SBP less than 130 mmHg. Follow with PCP and may decrease the dose to 10 mg daily. Discontinued atenolol 25 MG tablet 25 mg PO DAILY amlodipine 5 MG tablet 5 mg PO BID aspirin 81 MG tablet,chewable 81 mg PO DAILY hydrochlorothiazide 25 MG tablet 25 mg PO DAILY Referrals / Follow Up: Gerald Alexandra MD [Med Staff - Active Staff] - Within 1 Month Meena Vasquez MD [Primary Care Provider] - Within 2 Weeks Disposition Disposition (needs filled in before D/C Order can be placed): Home, Self Care
--- NOTE | 2025-01-11 08:25 | PN.CARD_ITS ---
<Statement entered by Edward Le MD - 01/11/25 17:07> Pt seen & evaluated w/JESSICA. I personally interviewed & exam the pt. I was involved in all aspects of pt's orders, interpretation of results & treatment Subjective Subjective Patient seen and examined. She is feeling much better today. Shortness of breath has significantly improved. She is not aware of her irregular heart rhythm. Objective Data Vital Signs: Vital Signs Temp Pulse Resp BP Pulse Ox O2 Del Method O2 Flow Rate 97.5 F L 96 15 119/65 92 Room Air 2 01/11/25 05:15 01/11/25 05:15 01/11/25 05:15 01/11/25 05:15 01/11/25 05:15 01/11/25 05:15 01/10/25 12:20 Oxygen Flow Rate (L/min) 2 Oxygen Delivery Method Room Air Weight: 207 lb 11.2 oz Body Mass Index (BMI) 39.2 Intake & Output: Intake and Output for Last 24 Hours 01/09/25 01/10/25 01/11/25 23:59 23:59 23:59 Output Total 1300 / 1300 600 / 600 Balance -1300 / -1300 -600 / -600 Lab / Micro Data 01/11/25 Unknown 01/11/25 Unknown Labs: Laboratory Results - last 24 hr 01/09/25 15:44: Fl Pathologist Comment Reviewed 01/10/25 10:00: WBC 7.1, RBC 4.25, Hgb 11.9 L, Hct 38.5, MCV 90.6, MCH 28.0, M CHC 30.9 L, RDW Std Deviation 52.4 H, RDW Coeff of Marcial 15.9 H, Plt Count 262, MPV 10.5, Immature Gran % (Auto) 0.100, Neut % (Auto) 76.8 H, Lymph % (Auto) 11.6 L, [place] % (Auto) 6.1, Eos % (Auto) 4.4, Baso % (Auto) 1.0, Absolute Neuts (auto) 5.4, Absolute Lymphs (auto) 0.82 L, Nucleated RBC % 0, Sodium 139, Potassium 3.9, Chloride 107, Carbon Dioxide 25.0, Anion Gap 7, BUN 37 H, C reatinine 1.07 H, Estim Creat Clear Calc 40.80, Est GFR (MDRD) Af Amer 63, Est GFR (MDRD) Non-Af 52 L, BUN/Creatinine Ratio 34.6 H, Glucose 173 H, Calcium 9.4, Phosphorus 3.7, Magnesium 1.9, Total Bilirubin 0.60, Direct Bilirubin 0.23, AST 19, ALT 16, Alkaline Phosphatase 71, Total Protein 7.0, Albumin 2.9 L, Globulin 4.1 01/11/25 : WBC 6.3, RBC 4.11 L, Hgb 11.6 L, Hct 37.4, MCV 91.0, MCH 28.2, MCHC 31.0 L, RDW Std Deviation 52.4 H, RDW Coeff of Marcial 15.9 H, Plt Count 251, MPV 10.6, Immature Gran % (Auto) 0.300, Neut % (Auto) 65.1, Lymph % (Auto) 18.7 L, [place] % (Auto) 9.1, Eos % (Auto) 5.7 H, Baso % (Auto) 1.1 H, Absolute Neuts (auto) 4.1, Absolute Lymphs (auto) 1.17, Nucleated RBC % 0, Sodium 140, Potassium 3.6, Chloride 104, Carbon Dioxide 29.0, Anion Gap 7, BUN 41 H, C reatinine 1.17 H, Estim Creat Clear Calc 36.83, Est GFR (MDRD) Af Amer 57 L, Est GFR (MDRD) Non-Af 47 L, BUN/Creatinine Ratio 35.0 H, Glucose 122 H, Calcium 9.1 Micro: Microbiology 01/09/25 15:44 Fluid - Pleural (Lung) Gram Stain - Final 01/09/25 15:44 Fluid - Pleural (Lung) Body Fluid Culture - Preliminary No growth-Final to follow Rhythm Strip Rhythm Strip: A-fib Rate: 118 Ectopy: None Cardiology Labs/Tests 01/10/25 10:00: WBC 7.1, RBC 4.25, Hgb 11.9 L, Hct 38.5, MCV 90.6, MCH 28.0, M CHC 30.9 L, Plt Count 262, MPV 10.5, Immature Gran % (Auto) 0.100, Neut % (Auto) 76.8 H, Lymph % (Auto) 11.6 L, [place] % (Auto) 6.1, Eos % (Auto) 4.4, Baso % (Auto) 1.0, Absolute Neuts (auto) 5.4, Nucleated RBC % 0, Sodium 139, Potassium 3.9, Chloride 107, Carbon Dioxide 25.0, Anion Gap 7, BUN 37 H, Creatinine 1.07 H , Est GFR (MDRD) Af Amer 63, Est GFR (MDRD) Non-Af 52 L, BUN/Creatinine Ratio 34.6 H, Glucose 173 H, Calcium 9.4, Phosphorus 3.7, Magnesium 1.9, Total Bilirubin 0.60, Direct Bilirubin 0.23 01/11/25 : WBC 6.3, RBC 4.11 L, Hgb 11.6 L, Hct 37.4, MCV 91.0, MCH 28.2, MCHC 31.0 L, Plt Count 251, MPV 10.6, Immature Gran % (Auto) 0.300, Neut % (Auto) 65.1, Lymph % (Auto) 18.7 L, [place] % (Auto) 9.1, Eos % (Auto) 5.7 H, Baso % (Auto) 1.1 H, Absolute Neuts (auto) 4.1, Nucleated RBC % 0, Sodium 140, Potassium 3.6, Chloride 104, Carbon Dioxide 29.0, Anion Gap 7, BUN 41 H, C reatinine 1.17 H, Est GFR (MDRD) Af Amer 57 L, Est GFR (MDRD) Non-Af 47 L, B UN/Creatinine Ratio 35.0 H, Glucose 122 H, Calcium 9.1 Radiography Diagnostic Testing: Radiology Impression Abdomen Ultrasound 01/10/25 08:49 IMPRESSION: Heterogeneous echotexture of the hepatic parenchyma. Mildly distended gallbladder lumen. No gallstones are seen. Small bilateral pleural effusions. Reading Location: [facility] Physical Exam Narrative Physical exam General: Alert, Oriented x3, Cooperative HEENT: Atraumatic, PERRLA, EOMI, Normocephalic Oral: Oral mucosa dry Neck: Supple, No JVD, Negative Carotid Bruits Chest wall/Lungs: Air entry improved on right hand after thoracocentesis. No crepitation or rhonchi. No hypoxia or tachypnea Cardiovascular: Irregular S1-S2 rhythm, No M/G/R Abdomen: Bowel Sounds Present, Soft, Non Tender : No dysuria. No renal angle tenderness. No suprapubic tenderness. Extremities: Bilateral pitting edema, chronic left more than right. capillary Refill Less than 3 Seconds Musculoskeletal: No Tenderness to Palpation of Joints or Extremities. ROM limited Neurological: Cranial nerves II-XII grossly intact, DTR 2+/4. No acute focal neurological deficit. Psych/Mental Status: Normal Affect, Appropriate. Assessment & Plan Assessment/Plan (1) Atrial fibrillation with rapid ventricular response: PLAN: Agree with controlling ventricular rate with beta-blockers and calcium channel blockers. Started on apixaban. Will follow-up with patient in the office. After she has been anticoagulated for 30 days will consider cardioversion. (2) CHF (congestive heart failure): PLAN: HFpEF. Continue furosemide. (3) Pleural effusion on right: PLAN: Status post thoracentesis. Patient reports feeling better. (4) Hypertension: QUALIFIERS: Hypertension type: essential hypertension Qualified Code(s): I10 - Essential (primary) hypertension PLAN: Beta-blockers, calcium channel blockers Charges/Coding Visit Charges Inpatient E&M: 67923 Subs Hosp L2
--- NOTE | 2025-01-11 08:25 | PN.CARD_ITS ---
Objective Data Vital Signs: Vital Signs Temp Pulse Resp BP Pulse Ox O2 Del Method O2 Flow Rate 97.5 F L 96 15 119/65 92 Room Air 2 01/11/25 05:15 01/11/25 05:15 01/11/25 05:15 01/11/25 05:15 01/11/25 05:15 01/11/25 05:15 01/10/25 12:20 Oxygen Flow Rate (L/min) 2 Oxygen Delivery Method Room Air Weight: 207 lb 11.2 oz Body Mass Index (BMI) 39.2 Intake & Output: Intake and Output for Last 24 Hours 01/09/25 01/10/25 01/11/25 23:59 23:59 23:59 Output Total 1300 / 1300 600 / 600 Balance -1300 / -1300 -600 / -600 Lab / Micro Data 01/11/25 Unknown 01/11/25 Unknown Labs: Laboratory Results - last 24 hr 01/09/25 15:44: Fl Pathologist Comment Reviewed 01/10/25 10:00: WBC 7.1, RBC 4.25, Hgb 11.9 L, Hct 38.5, MCV 90.6, MCH 28.0, M CHC 30.9 L, RDW Std Deviation 52.4 H, RDW Coeff of Marcial 15.9 H, Plt Count 262, MPV 10.5, Immature Gran % (Auto) 0.100, Neut % (Auto) 76.8 H, Lymph % (Auto) 11.6 L, [place] % (Auto) 6.1, Eos % (Auto) 4.4, Baso % (Auto) 1.0, Absolute Neuts (auto) 5.4, Absolute Lymphs (auto) 0.82 L, Nucleated RBC % 0, Sodium 139, Potassium 3.9, Chloride 107, Carbon Dioxide 25.0, Anion Gap 7, BUN 37 H, C reatinine 1.07 H, Estim Creat Clear Calc 40.80, Est GFR (MDRD) Af Amer 63, Est GFR (MDRD) Non-Af 52 L, BUN/Creatinine Ratio 34.6 H, Glucose 173 H, Calcium 9.4, Phosphorus 3.7, Magnesium 1.9, Total Bilirubin 0.60, Direct Bilirubin 0.23, AST 19, ALT 16, Alkaline Phosphatase 71, Total Protein 7.0, Albumin 2.9 L, Globulin 4.1 01/11/25 : WBC 6.3, RBC 4.11 L, Hgb 11.6 L, Hct 37.4, MCV 91.0, MCH 28.2, MCHC 31.0 L, RDW Std Deviation 52.4 H, RDW Coeff of Marcial 15.9 H, Plt Count 251, MPV 10.6, Immature Gran % (Auto) 0.300, Neut % (Auto) 65.1, Lymph % (Auto) 18.7 L, [place] % (Auto) 9.1, Eos % (Auto) 5.7 H, Baso % (Auto) 1.1 H, Absolute Neuts (auto) 4.1, Absolute Lymphs (auto) 1.17, Nucleated RBC % 0, Sodium 140, Potassium 3.6, Chloride 104, Carbon Dioxide 29.0, Anion Gap 7, BUN 41 H, C reatinine 1.17 H, Estim Creat Clear Calc 36.83, Est GFR (MDRD) Af Amer 57 L, Est GFR (MDRD) Non-Af 47 L, BUN/Creatinine Ratio 35.0 H, Glucose 122 H, Calcium 9.1 Micro: Microbiology 01/09/25 15:44 Fluid - Pleural (Lung) Gram Stain - Final 01/09/25 15:44 Fluid - Pleural (Lung) Body Fluid Culture - Preliminary No growth-Final to follow Rhythm Strip Rhythm Strip: A-fib Rate: 118 Ectopy: None Cardiology Labs/Tests 01/10/25 10:00: WBC 7.1, RBC 4.25, Hgb 11.9 L, Hct 38.5, MCV 90.6, MCH 28.0, M CHC 30.9 L, Plt Count 262, MPV 10.5, Immature Gran % (Auto) 0.100, Neut % (Auto) 76.8 H, Lymph % (Auto) 11.6 L, [place] % (Auto) 6.1, Eos % (Auto) 4.4, Baso % (Auto) 1.0, Absolute Neuts (auto) 5.4, Nucleated RBC % 0, Sodium 139, Potassium 3.9, Chloride 107, Carbon Dioxide 25.0, Anion Gap 7, BUN 37 H, Creatinine 1.07 H , Est GFR (MDRD) Af Amer 63, Est GFR (MDRD) Non-Af 52 L, BUN/Creatinine Ratio 34.6 H, Glucose 173 H, Calcium 9.4, Phosphorus 3.7, Magnesium 1.9, Total Bilirubin 0.60, Direct Bilirubin 0.23 01/11/25 : WBC 6.3, RBC 4.11 L, Hgb 11.6 L, Hct 37.4, MCV 91.0, MCH 28.2, MCHC 31.0 L, Plt Count 251, MPV 10.6, Immature Gran % (Auto) 0.300, Neut % (Auto) 65.1, Lymph % (Auto) 18.7 L, [place] % (Auto) 9.1, Eos % (Auto) 5.7 H, Baso % (Auto) 1.1 H, Absolute Neuts (auto) 4.1, Nucleated RBC % 0, Sodium 140, Potassium 3.6, Chloride 104, Carbon Dioxide 29.0, Anion Gap 7, BUN 41 H, C reatinine 1.17 H, Est GFR (MDRD) Af Amer 57 L, Est GFR (MDRD) Non-Af 47 L, B UN/Creatinine Ratio 35.0 H, Glucose 122 H, Calcium 9.1 Rhythm: EKG: ECHO: Stress Test: Cardiac Cath: PCI: CT Surgery: Holter monitor: EPS: PPM: CXR: Chest CT Scan: Radiography Diagnostic Testing: Radiology Impression Abdomen Ultrasound 01/10/25 08:49 IMPRESSION: Heterogeneous echotexture of the hepatic parenchyma. Mildly distended gallbladder lumen. No gallstones are seen. Small bilateral pleural effusions. Reading Location: [facility]
[2025-01-11 08:45] VITALS: BP 107/47; PULSE 64; RESP 15; O2SAT 96
--- NOTE | 2025-01-11 08:45 | PCM.DC.SUM ---
Providers Date of Admission: 01/08/25 Date of Discharge: 01/11/25 Primary Care Physician: Dr. Meena Vasquez MD Consultations 01/09/25 08:25 Consult: Cardiology Routine Consulting Provider: Gerald Alexandra Reason for Consult: afib RVR, low BP, Gen swelling, CHF? new onset EMERGENT Consult: No MD Notified: Yes Date Notified: 01/09/25 Time Notified: 08:25 Method of Notification: Text Reason For Visit: NEW ONSET AFIB, HF Diagnosis Discharge Diagnosis (1) Atrial fibrillation with rapid ventricular response: Status: Acute Code(s): I48.91 - Unspecified atrial fibrillation (2) CHF (congestive heart failure): Status: Acute Code(s): I50.9 - Heart failure, unspecified (3) Pleural effusion on right: Status: Acute Code(s): J90 - Pleural effusion, not elsewhere classified (4) Hypertension: Status: Chronic Code(s): I10 - Essential (primary) hypertension Qualifiers: Hypertension type: essential hypertension Qualified Code(s): I10 - Essential (primary) hypertension (5) Hypothyroidism: Status: Chronic Code(s): E03.9 - Hypothyroidism, unspecified (6) Type 2 diabetes mellitus: Status: Chronic Code(s): E11.9 - Type 2 diabetes mellitus without complications Qualifiers: Diabetes mellitus complication status: with unspecified complications Diabetes mellitus buttermaker helper insulin use: unspecified buttermaker helper insulin use status Qualified Code(s): E11.8 - Type 2 diabetes mellitus with unspecified complications Plan This 84-year-old female is being admitted for new onset A-fib with RVR and right moderate pleural effusion, weight gain and generalized swelling. 1. New onset A-fib with RVR: Patient is being admitted to PCU. EKG shows A-fib RVR 118 beats minute, QRS 140 ms, RBBB, LAFB bifascicular block. Previous EKG also had bifascicular block but normal sinus rhythm in 2012. Heart rate is controlled after Cardizem 20 IV in ED. BP also recovered from /95 after Cardizem. Started on metoprolol 25 mg twice daily. 2D echo is ordered. Plan for anticoagulation after thoracocentesis tomorrow. TSH elevated. Free T4 ordered. 01/09: TSH 4.92, Free T4 normal 1.21. Metoprolol dose increased to 50 mg twice daily and started on Cardizem oral 60 mg Q6 hourly the blood pressure got better systolic 130. BMP improves further will increase Lasix dose. Motor And Generator Brush Maker consulted. Etiology of A-fib unclear possible related to new onset heart failure. 01/10: Heart rate is better controlled. Cardizem was increased to 60 mg Q6 hourly. Continue metoprolol. 01/11: Heart rate is controlled. Still in A-fib. Patient is discharged on Cardizem CD 240 mg daily. Continue metoprolol 50 mg twice daily. Patient on Eliquis. Home medication atenolol and baby aspirin discontinued. Prescriptions given. Follow-up with the skoog operator Dr. Alexandra in 1 month. 2. Generalized swelling, weight gain, abdominal swelling, possible ascites and moderate right pleural effusion suggestive from acute on chronic HFpEF: Chest x-ray daily reviewed and shows pulmonary venous congestion, right moderate pleural effusion and basilar atelectasis along with cardiomegaly. Ultrasound-guided thoracocentesis along with pleural fluid analysis labs ordered. Low-dose diuretic if tolerated by hemodynamics. BNP elevated 230. 01/09: Plan for thoracocentesis. Ultrasound abdomen ordered to rule out ascites. Gradually increased diuresis as per tolerated. Rest as mentioned above. 01/10: Patient had 1300 mL fluid taken out from right pleural space. No pneumothorax on follow-up chest x-ray. Respiratory status is improved. Fluid analysis shows transudate as per lights creatinine. Pleural fluid culture no growth. 2D echo reviewed with the patient's .EF 64%, stage I diastolic dysfunction with moderate MR and moderate TR. Mild aortic stenosis. Pulmonary hypertension with RVSP 60 mmHg. Mild left pleural effusion. 01/10: Patient discharged on furosemide 40 mg daily. HCTZ discontinued. 3. Chronic venous insufficiency with varicose vein LLE worse than RLE, lipodermatosclerosis: Patient follows with vascular surgeon Dr. Allan Carpenter. On venous pump. SEFERINO milligan. Denies history of DVT. 4. Hyperglycemia: A1c ordered for tomorrow AM. A1c 6.7 suggestive of diabetes mellitus. Most likely type II. 12/2019 patient on metformin continue 5. Other comorbidities include chronic degenerative arthritis of knees: PT and OT ordered Living will/advanced directive/end of life care: Patient does not have living will or advanced directive. After discussion of benefits/risks procedures involved with full code, DNR CC arrest and DNR CC, the patient and her opted for full code. Patient does want artificial life support including intubation, tube feed, ventilator and/chest compression, central venous catheter, vasopressor and DC shock if needed Discharge medication reconciliation done. Discharge follow-up instructions completed. Discharge process discussed with the patient and all questions were answered to patient's satisfaction. Follow with PCP in 1 to 2 weeks Total time spent, exact 35 minutes on discharge meds reconciliation, examination, coordination of care with nurses and ancillary staff, review of imaging and blood test and discussion with the patient on follow-up instructions. Microbiology Past 72 Hours 01/09/25 15:44 Fluid - Pleural (Lung) Body Fluid Culture - Preliminary No growth-Final to follow Laboratory Results 01/08/25 15:45: Fluid pH Cancelled, Fluid Glucose 142 H, Fluid Total Protein 2.5, Fluid LDH 51, Fluid Amylase Cancelled 01/09/25 15:43: Miscellaneous Cytology Pending 01/09/25 15:44: Fluid Source PLEURAL FLUID, Fluid Color LT YEL, Fluid Appearance SL CLDY, Fluid WBC 0.321, Fluid RBC 1290, Fluid Tot Cell Count 0.333 H, Fld Polynuclear WBCs # 0.021, Fld Polynuclear WBCs % 6.5, Fluid Mononuclear WBCs 0.300, Fld Mononuclear WBCs % 93.5, Fluid Neutrophils 12, Fluid Lymphocytes 69, Fluid Monocytes 4, Fluid Macrophages 14, Fluid Other Cells 1, Fl Pathologist Comment May follow, Fluid Comment 2 SEE COMMENT Triglycerides 86, Cholesterol 118, LDL Cholesterol 27, VLDL Cholesterol 17, HDL Cholesterol 74, Free T4 1.21 Clinical Impression(s) from Imaging Studies Chest X-Ray 01/08/25 11:30 IMPRESSION: Cardiomegaly, CHF and right pleural effusion with right basilar atelectasis. Reading Location: [facility] Clinical Impression(s) from Imaging Studies Chest X-Ray 01/08/25 11:30 IMPRESSION: Cardiomegaly, CHF and right pleural effusion with right basilar atelectasis. Reading Location: [facility] Echocardiogram 01/09/25 05:55 Interpretation Summary Mild concentric left ventricular hypertrophy. Estimated LVEF 64%. At least stage I diastolic dysfunction. There is severe biatrial dilatation. Severe mitral valve annular calcification. Moderate mitral valve regurgitation. Moderate (2+) tricuspid valve insufficiency. Right ventricular systolic pressure estimated to be 60 mmHg. Mild to moderate aortic valve calcification. Mild aortic valve stenosis. Mean peak gradient 9 mmHg. Moderate size left pleural effusion. Abdomen Ultrasound 01/09/25 08:30 IMPRESSION: No evidence of ascites. Reading Location: [facility] Chest X-Ray 01/09/25 15:22 IMPRESSION: 1. Interval resolution of the previous right pleural effusion. No sizable pneumothorax. 2. Interval development of a moderate left pleural effusion. Medications at Discharge Home Medications gabapentin 300 mg capsule (Neurontin) 300 mg PO DAILY 09/30/17 levothyroxine 100 mcg tablet 100 mcg PO DAILY 09/30/17 liraglutide 0.6 mg/0.1 mL (18 mg/3 mL) subcutaneous pen injector (Victoza 2-Salomón) 1.2 mg SQ BREAKFAST 09/30/17 lisinopril 40 mg tablet 40 mg PO DAILY 09/30/17 Held on 01/11/25. Instructions: Hold for SBP less than 130 mmHg. Follow with PCP and may decrease the dose to 10 mg daily. metformin 500 mg 24 hr tablet,extended release (gastric retention) 500 mg PO BID 09/30/17 pentoxifylline 400 mg tablet,extended release 1 tab PO TID 09/30/17 acetaminophen 500 mg tablet (Acetaminophen Extra Strength) 1,000 mg PO QHS PRN pain 01/08/25 cetirizine 10 mg tablet (24Hour Allergy) 10 mg PO DAILY PRN allergy symptoms 01/08/25 diosmin complex no.1 630 mg tablet (Vasculera) 1 tab PO DAILY 01/08/25 hmaudhuggpnt-dvhxfctt-rjcymn tablet (A Thru Z High Potency tablet) 1 tab PO DAILY 01/08/25 simvastatin 20 mg tablet 20 mg PO QHS 01/08/25 apixaban 5 mg tablet (Eliquis) 5 mg PO BID 30 days #60 tabs 01/11/25 dextromethorphan-guaifenesin 30 mg-600 mg tablet extended wmelomy40 hr (Mucinex DM) 1 tab PO BID 7 days #14 tabs 01/11/25 diltiazem HCl 240 mg capsule,extended release 24 hr (Cardizem CD) 240 mg PO DAILY 1 month #30 caps 01/11/25 furosemide 40 mg tablet 40 mg PO DAILY 1 month #30 tabs 01/11/25 metoprolol tartrate 50 mg tablet 50 mg PO BID 30 days #60 tabs 01/11/25 Physical Exam Narrative Heart rate is controlled. atrial fibrillationafebrile. Blood pressure slightly improved 121/80.. Patient felt comfortable in regards to shortness of breath and breathing Physical exam General: Alert, Oriented x3, Cooperative HEENT: Atraumatic, PERRLA, EOMI, Normocephalic Oral: Oral mucosa dry no Gingival or Mucosal Lesions/ Ulcerations Neck: Supple, No JVD, Negative Carotid Bruits Chest wall/Lungs: Air entry improved on right hand after thoracocentesis. No crepitation or rhonchi. No hypoxia or tachypnea Cardiovascular: Irregular S1-S2 rhythm, No M/G/R Abdomen: Bowel Sounds Present, Soft, mild abdominal distention. Admitted with Non Tender : No dysuria. No renal angle tenderness. No suprapubic tenderness. Extremities: Bilateral pitting edema, chronic left more than right. capillary Refill Less than 3 Seconds Skin: No rashes, No breakdown. Chronic varicose venous insufficiency Musculoskeletal: No Tenderness to Palpation of Joints or Extremities. ROM limited Neurological: Cranial nerves II-XII grossly intact, DTR 2+/4. No acute focal neurological deficit. Psych/Mental Status: Normal Affect, Appropriate. Weight / BMI Weight Weight: 207 lb 11.2 oz Body Mass Index (BMI) 39.2 ABG / Lab / Microbiology Data 01/11/25 Unknown 01/11/25 Unknown Laboratory: Laboratory Results - last 24 hr 01/09/25 15:44: Fl Pathologist Comment Reviewed 01/10/25 10:00: WBC 7.1, RBC 4.25, Hgb 11.9 L, Hct 38.5, MCV 90.6, MCH 28.0, MCHC 30.9 L, RDW Std Deviation 52.4 H, RDW Coeff of Marcial 15.9 H, Plt Count 262, MPV 10.5, Immature Gran % (Auto) 0.100, Neut % (Auto) 76.8 H, Lymph % (Auto) 11.6 L, Russell % (Auto) 6.1, Eos % (Auto) 4.4, Baso % (Auto) 1.0, Absolute Neuts (auto) 5.4, Absolute Lymphs (auto) 0.82 L, Nucleated RBC % 0, Sodium 139, Potassium 3.9, Chloride 107, Carbon Dioxide 25.0, Anion Gap 7, BUN 37 H, Creatinine 1.07 H, Estim Creat Clear Calc 40.80, Est GFR (MDRD) Af Amer 63, Est GFR (MDRD) Non-Af 52 L, BUN/Creatinine Ratio 34.6 H, Glucose 173 H, Calcium 9.4, Phosphorus 3.7, Magnesium 1.9, Total Bilirubin 0.60, Direct Bilirubin 0.23, AST 19, ALT 16, Alkaline Phosphatase 71, Total Protein 7.0, Albumin 2.9 L, Globulin 4.1 01/11/25 : WBC 6.3, RBC 4.11 L, Hgb 11.6 L, Hct 37.4, MCV 91.0, MCH 28.2, MCHC 31.0 L, RDW Std Deviation 52.4 H, RDW Coeff of Marcial 15.9 H, Plt Count 251, MPV 10.6, Immature Gran % (Auto) 0.300, Neut % (Auto) 65.1, Lymph % (Auto) 18.7 L, Russell % (Auto) 9.1, Eos % (Auto) 5.7 H, Baso % (Auto) 1.1 H, Absolute Neuts (auto) 4.1, Absolute Lymphs (auto) 1.17, Nucleated RBC % 0, Sodium 140, Potassium 3.6, Chloride 104, Carbon Dioxide 29.0, Anion Gap 7, BUN 41 H, Creatinine 1.17 H, Estim Creat Clear Calc 36.83, Est GFR (MDRD) Af Amer 57 L, Est GFR (MDRD) Non-Af 47 L, BUN/Creatinine Ratio 35.0 H, Glucose 122 H, Calcium 9.1 Microbiology: Microbiology 01/09/25 15:44 Fluid - Pleural (Lung) Gram Stain - Final 01/09/25 15:44 Fluid - Pleural (Lung) Body Fluid Culture - Preliminary No growth-Final to follow Radiography Diagnostic Testing: Radiology Impression Abdomen Ultrasound 01/10/25 08:49 IMPRESSION: Heterogeneous echotexture of the hepatic parenchyma. Mildly distended gallbladder lumen. No gallstones are seen. Small bilateral pleural effusions. Reading Location: [id number] Instructions Discharge Diet: Low fat / Low cholesterol, 8 Cup Fluid Restriction and 2000 mg Sodium Diet Weight Bearing Status: Weight bearing as tolerated Call your doctor if you observe: Fever of 101 or Higher, Coldness, Increased Pain, Numbness or Tingling, Change in Color, Inability to urinate, Inability to have a bowel movement, Shortness of breath, Dizziness, Fainting spells, Swelling in the ankles, Chest pain, Prolonged hiccupping, Increased palpitations (irregular heartbeat) and Calf discomfort DC O2, CPAP, BIPAP Needs Home O2 Discharge instructions: No When: IN 2 WEEKS Meaningful Use Info Meaningful Use Meaningful Use Diagnoses (Choose all that apply): CHF CHF EMILIE/ARB ordered at discharge?: Yes Documented LVEF (%): 65 Ischemic Stroke Statin Dosing Therapy Reference: STATIN DOSE THERAPY REFERENCE: * Patients > 75 years receive moderate or high dose statin therapy. * Patients 75 years or YOUNGER should receive HIGH intensity statin dose unless contraindicated. You will be required to document reason for non-treatment if statin daily dose does not meet guidelines. HIGH DOSE STATIN THERAPY DAILY Atorvastatin > than or = to 40 mg Rosuvastatin > than or = to 20 mg Amlodipine + Atorvastatin > than or = to 2.5/40 mg Ezetimibe + Simvastatin 10/80 mg Simvastatin 80mg Discharge Plan Admission Admit Date/Time: 01/08/25 12:50 Primary Reason for Your Visit: Acute on chronic HFpEF, right pleural effusion Attending Provider: Supa Brumfield Primary Care Provider: Meena Vasquez Consulting Providers: Gerald Alexandra Instructions Patient Instructions: SERINA RN Thoracentesis Dc Discharge Orders/Prescriptions Prescriptions: New metoprolol tartrate 50 mg Tablet 50 mg PO BID 30 Days Qty: 60 2RF Rx Instructions: Hold for heart less than 50 or systolic blood pressure less than 100 mmHg. Mucinex DM 30-600 mg Tablet Extended Release 12 Hr 1 tab PO BID 7 Days Qty: 14 0RF Eliquis 5 mg Tablet 5 mg PO BID 30 Days Qty: 60 2RF diltiazem HCl [Cardizem CD] 240 mg capsule,extended release 24hr 240 mg PO DAILY 30 Days Qty: 30 2RF Rx Instructions: Hold for heart less than 50 or systolic blood pressure less than 100 mmHg. furosemide 40 mg tablet 40 mg PO DAILY 30 Days Qty: 30 2RF Rx Instructions: Take extra 40 mg dose at 5 PM for increased leg swelling or weight gain 5 pounds in 1 week. Continued levothyroxine 100 MCG tablet 100 mcg PO DAILY gabapentin [Neurontin] 300 MG capsule 300 mg PO DAILY metformin 500 MG tablet,ER mynor.retention 24 hr 500 mg PO BID liraglutide [Victoza 2-Salomón] 0.6 MG/0.1 ML pen injector 1.2 mg SQ BREAKFAST pentoxifylline 400 MG tablet 1 tab PO TID simvastatin 20 mg tablet 20 mg PO QHS Patient Comments: [NO ORIGINAL SIG] Vasculera 630 mg tablet 1 tab PO DAILY A Thru Z High Potency Tablet 1 tab PO DAILY cetirizine [24Hour Allergy] 10 mg tablet 10 mg PO DAILY PRN (Reason: allergy symptoms) acetaminophen [Acetaminophen Extra Strength] 500 mg tablet 1,000 mg PO QHS PRN (Reason: pain) Held lisinopril 40 MG tablet 40 mg PO DAILY Hold Instructions: Hold for SBP less than 130 mmHg. Follow with PCP and may decrease the dose to 10 mg daily. Discontinued atenolol 25 MG tablet 25 mg PO DAILY amlodipine 5 MG tablet 5 mg PO BID aspirin 81 MG tablet,chewable 81 mg PO DAILY hydrochlorothiazide 25 MG tablet 25 mg PO DAILY Referrals / Follow Up: Gerald Alexandra MD [Med Staff - Active Staff] - Within 1 Month Meena Vasquez MD [Primary Care Provider] - Within 2 Weeks Disposition Disposition (needs filled in before D/C Order can be placed): Home, Self Care Charges/Coding Visit Charges Inpatient E&M: 55128 Disch Hosp >30min
[2025-01-11] MEDS: Loratadine 10 MG Tablet PO (09:21)
[2025-01-11] MEDS: Fluticasone 0.05% 1 SPRAY NASAL.SRY 2 SPRAY NASAL (09:21)
[2025-01-11] MEDS: APIXABAN 5 MG TABLET PO (09:21)
[2025-01-11 09:22] VITALS: PULSE 111
[2025-01-11] MEDS: Furosemide 40 MG/4 ML Vial IV (09:22)
[2025-01-11] MEDS: guaiFENesin/D-Methorphan TAB.SR.12H 2 TABLET PO (09:22)
[2025-01-11] MEDS: Metoprolol Tartrate 50 MG Tablet PO (09:22)
--- NOTE | 2025-01-11 09:51 | CASEMGMT ---
Per the vehicle refinisher, pt does not qualify for home oxygen. Pt has a new Rx for Eliquis. TC to Callie who states that the pts total copay is 100$. RN CM to pt room at this time. Pt sitting @ bedside. Pt states that she can afford this but that she is willing to accept the savings/free trial card due to the amount of time she will be on the Eliquis. Pt is aware that this can only be used once. Pt states understanding and denies further needs or concerns at this time and states that she is ready for DC home today with her . Pt RN updated.
== END 2025-01-11 11:02 | disposition home or self-care (01) | DRG 291 ==
LOC: ED 12:33 → ICU 14:23
PROVIDERS: Admitting Provider Internal Medicine; Emergency Provider Emergency Medicine; PCP Internal Medicine; Visit Provider Internal Medicine
DX: I11.0 Hypertensive heart disease with heart failure (principal); I50.33 Acute on chronic diastolic (congestive) heart failure; J90 Pleural effusion, not elsewhere classified; E11.59 Type 2 diabetes mellitus with other circulatory complications; E03.9 Hypothyroidism, unspecified; I48.91 Unspecified atrial fibrillation; Z79.4 Long term (current) use of insulin; E11.65 Type 2 diabetes mellitus with hyperglycemia; I83.11 Varicose veins of right lower extremity with inflammation; I83.12 Varicose veins of left lower extremity with inflammation; Z96.653 Presence of artificial knee joint, bilateral; Z79.82 Long term (current) use of aspirin; Z79.84 Long term (current) use of oral hypoglycemic drugs; Z79.85 Long-term (current) use of injectable non-insulin antidiabetic drugs; Z79.890 Hormone replacement therapy; Z79.899 Other long term (current) drug therapy
CPT/HCPCS: 32555; 36415; 71045; 71046; 76705; 80048; 80061; 80076; 82150; 82945; 83036; 83615; 83735; 83880; 83986; 84100; 84155; 84157; 84439; 84443; 84484; 85025; 85610; 85730; 87070; 87075; 87205; 88108; 88305; 88313; 89050; 93005; 93306; 94668; 94762; 97162; 97802; 99285; A4216; J1940

== ENCOUNTER → 2025-01-23 | Outpatient (CLI) | payer MEDICARE, SELFPAY ==
[2025-01-23 13:08] LABS: Anion Gap 11 (5-15); BUN 32 mg/dL (4-19); BUN/Creat Ratio 25.4 RATIO (10-20); Calcium,Total 10.2 mg/dL (7.6-11.0); Carbon Dioxide 29.7 mmol/L (21.0-32.0); Chloride 101 mmol/L (98-108); Creatinine, Serum 1.27 mg/dL (0.70-1.20); EST Glomerular Filtration Rate 41 (>60); Glucose 138 mg/dL (70-99); Potassium 4.4 mmol/L (3.3-5.1); Sodium Level 142 mmol/L (133-145)
[2025-01-23 13:59] LABS: International Normalized Ratio 1.7; Prothrombin Time (Protime)PT. 20.7 SECONDS (11.7-14.9)
== END | disposition home or self-care (01) ==
LOC: LAB 12:17
PROVIDERS: PCP Internal Medicine; Referring Provider Student in an Organized Health Care Education/Training Program; Visit Provider Student in an Organized Health Care Education/Training Program
DX: I48.91 Unspecified atrial fibrillation (principal)
CPT/HCPCS: 36415; 80048; 85610

== ENCOUNTER → 2025-01-31 | Outpatient (CLI) | payer MEDICARE, SELFPAY ==
--- NOTE | 2025-01-31 12:43 | RAD_ITS ---
EXAM: XR Chest, 2 Views CLINICAL INDICATION: PLEURAL EFFUSION TECHNIQUE: Frontal and lateral views of the chest. COMPARISON: 01/05/2025 FINDINGS: LUNGS AND PLEURAL SPACES: Lingular atelectasis or pneumonia. Trace right pleural effusion. HEART: Cardiomegaly with mild congestion. MEDIASTINUM: Unremarkable. Normal mediastinal contour. BONES/JOINTS: Unremarkable. No acute fracture. RAD/Chest PA and Lateral IMPRESSION: 1. Lingular atelectasis or pneumonia. 2. Cardiomegaly with mild congestion. 3. Trace right pleural effusion. Decreased left pleural effusion. Reading [facility]
== END | disposition home or self-care (01) ==
LOC: RAD 12:38
PROVIDERS: PCP Internal Medicine; Referring Provider Student in an Organized Health Care Education/Training Program; Visit Provider Student in an Organized Health Care Education/Training Program
DX: J90 Pleural effusion, not elsewhere classified (principal)
CPT/HCPCS: 71046

== ENCOUNTER 2025-04-16 11:09 | Inpatient (IN) | payer MEDICARE, SELFPAY ==
[2025-04-16] VITALS (9 sets, daily range): BP systolic 93–112; BP diastolic 66–78; PULSE 77–137; RESP 16–20; TEMP 36.3–36.8; O2SAT 88–94; BMI 38.8; BMI 37.5
--- NOTE | 2025-04-16 11:25 | ED.VIS.DYS ---
HPI History of Present Illness Chief Complaint: Shortness of Breath Narrative Narrative: Chief complaint and HPI: Shortness of breath. History taken by medical record as well as patient. I reviewed the discharge summary from 01/11 as well as a cardiology note from 01/23. 84-year-old female with past medical history of recently diagnosed atrial fibrillation, hypothyroidism, DM 2, HFpEF presents for evaluation of shortness of breath. Patient was recently hospitalized in December after being found in A-fib with RVR. She was diagnosed with CHF in which she had an echocardiogram on 01/09 that showed an EF of 64%, stage I diastolic dysfunction, severe bilateral atrial dilation and valvular disease. She further had a thoracentesis on 01/09 with 1.3 L removed. Cardiology note on 01/23 states that they decided not to pursue cardioversion. Patient states since seeing the phlebotomy services technician she has been taking all of her medications. States she is taking 40 mg of Lasix daily. Patient states over the past several days she has had increased swelling in her bilateral lower extremities as well as abdomen. Associated shortness of breath, worse with exertion. She does not weigh herself. She does not know how much weight she has gained. She states she doubled her Lasix yesterday and took 80 mg. She denies any fever, chills, cough, URI symptoms, chest pain, nausea, vomiting. Review of systems: See HPI Medications: As listed on the chart Allergies: As listed on the chart PFSH: Per chart Vital signs: As listed on the chart. Reviewed. Physical exam: Gen: A&O x3, NAD Head: Normocephalic, atraumatic Eyes: No sclera icterus, conjunctiva clear ENT: Moist mucous membranes Neck: Trachea midline, No JVD CV: Regular rate, irregular rhythm, no murmurs, + 2 bilateral pitting peripheral edema of the lower extremities Resp: Lungs CTA BL but diminished in the bilateral bases, no w/r/c GI: Abd soft, non-distended, non-tender, no r/r/g Musc: Full ROM, no deformity Skin: Warm, dry Neuro: Alert, oriented, grossly intact, sensation intact Psych: Cooperative, appropriate mood and affect [facility] Medical History Diabetes Kidney disease Non-smoker Venous (peripheral) insufficiency Atrial fibrillation CHF (congestive heart failure) Venous stasis ulcer Hyperpigmentation of skin Lipodermatosclerosis of both lower extremities Right leg swelling Left leg swelling Varicose veins of lower extremity with inflammation, 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 Chronic venous insufficiency Generalized osteoarthrosis History of right breast cancer Cardiomegaly Home Medications ?Medication ?Instructions ?Recorded ?Last Taken ?Type gabapentin 300 mg capsule 300 mg PO DAILY 09/30/17 04/15/25 History (Neurontin) levothyroxine 100 mcg tablet 100 mcg PO DAILY 09/30/17 04/16/25 History liraglutide 0.6 mg/0.1 mL (18 mg/3 1.2 mg SQ BREAKFAST 09/30/17 04/16/25 History mL) subcutaneous pen injector (Victoza 2-Salomón) lisinopril 40 mg tablet 40 mg PO DAILY 09/30/17 04/15/25 History Held on 01/11/25. Instructions: Hold for SBP less than 130 mmHg. Follow with PCP and may decrease the dose to 10 mg daily. metformin 500 mg 24 hr 500 mg PO BID 09/30/17 04/16/25 History tablet,extended release (gastric retention) pentoxifylline 400 mg 1 tab PO TID 09/30/17 04/16/25 History tablet,extended release acetaminophen 500 mg tablet 1,000 mg PO QHS PRN pain 01/08/25 Unknown History (Acetaminophen Extra Strength) cetirizine 10 mg tablet (24Hour 10 mg PO DAILY PRN allergy symptoms 01/08/25 Unknown History Allergy) diosmin complex no.1 630 mg tablet 1 tab PO DAILY 01/08/25 04/15/25 History (Vasculera) nfbihqyhsadr-xpivejeb-fuwtfi 1 tab PO DAILY 01/08/25 04/16/25 History tablet (A Thru Z High Potency tablet) simvastatin 20 mg tablet 20 mg PO QHS 01/08/25 04/15/25 History apixaban 5 mg tablet (Eliquis) 5 mg PO BID 90 days #180 tabs 01/23/25 04/16/25 Rx diltiazem HCl 240 mg 240 mg PO DAILY 3 months #90 caps 01/23/25 04/16/25 Rx capsule,extended release 24 hr (Cardizem CD) furosemide 40 mg tablet 40 mg PO DAILY 3 months #90 tabs 01/23/25 04/15/25 Rx metoprolol tartrate 50 mg tablet 50 mg PO BID 90 days #180 tabs 01/23/25 04/16/25 Rx biotin 5,000 mcg sublingual tablet 5,000 mcg sublingual DAILY 04/16/25 04/15/25 History Allergy/AdvReac Type Severity Reaction Status Date / Time enoxaparin (From Lovenox) Allergy Unknown Verified 04/16/25 11:15 oxycodone Allergy Unknown Verified 04/16/25 11:15 Penicillins (PCN) Allergy Unknown Verified 04/16/25 11:15 Family History (Updated 04/16/25 @ 14:[address] Ras Blas DO) Other Heart disease Surgical History History of lumpectomy of right breast History of lumbar laminectomy History of total replacement of both hip joints History of total bilateral knee replacement (TKR) Social History Smoking Status: Never smoker EXAM Physical Exam Const Vital Signs: 04/16/25 11:12 04/16/25 12:11 04/16/25 13:04 Temperature 97.7 F L Temperature Source Oral Pulse Rate 131 H Respiratory Rate 18 Blood Pressure 93/66 Blood Pressure Mean 75 Pulse Ox 91 88 94 Oxygen Delivery Method Room Air Room Air Nasal Cannula Oxygen Flow Rate (L/min) 2 MDM MDM MDM Narrative Medical decision making narrative: 84-year-old female with past medical history of recently diagnosed atrial fibrillation, hypothyroidism, DM 2, HFpEF presents for evaluation of shortness of breath. History taken by patient as well as medical record. See HPI. Associated symptom is bilateral lower extremity swelling. Suspect CHF exacerbation however differential diagnosis includes but is not limited to arrhythmia, ACS, pneumonia. EKG reviewed see below. Chest x-ray was personally reviewed and interpreted by me, ED physician. Cardiomegaly with bilateral pleural effusions, right greater than left. Vascular congestion. No pneumothorax or pneumonia. This is consistent with CHF exacerbation. Radiology in agreement. CBC with mild leukocytosis of 13.5. No anemia. INR 3.4. BMP shows FERMÍN with BUN of 66 and creatinine of 2.31. Patient's creatinine was 1.27 on 3/5. I suspect that this is likely secondary to her home diuretics. Troponin 46 and 33. Patient not having any chest pain. I suspect that the elevated troponin is likely secondary to her CHF exacerbation. Her BNP is 4839. IV Lasix ordered. Patient will warrant admission for CHF exacerbation. Her and her were updated of all the results and the plan. They confirmed understanding. Hospice accepted admission. Patient became hypoxic here in the emergency department, likely secondary to CHF therefore she was placed on 2 L nasal cannula. EKG: Interpreted by me/EM physician: EKG shows atrial fibrillation with a heart rate of 109. Known right bundle branch block. No ST elevation. Impression: 1. CHF exacerbation 2. FERMÍN likely secondary to home diuretics. 3. Acute hypoxia requiring nasal cannula secondary to #1 Lab Data Labs: Laboratory Results - last 24 hr 04/16/25 04/16/25 11:33 13:32 WBC 13.5 H RBC 4.73 Hgb 13.3 Hct 42.8 MCV 90.5 MCH 28.1 MCHC 31.1 L RDW Std Deviation 56.1 H RDW Coeff of Marcial 16.8 H Plt Count 322 MPV 10.2 Immature Gran % (Auto) 0.300 Neut % (Auto) 84.3 H Lymph % (Auto) 5.7 L [place] % (Auto) 9.2 Eos % (Auto) 0.1 Baso % (Auto) 0.4 Absolute Neuts (auto) 11.4 H Absolute Lymphs (auto) 0.77 L Nucleated RBC % 0 PT 34.7 H INR 3.4 APTT 36.3 H Sodium 137 Potassium 5.2 H Chloride 98 Carbon Dioxide 19.6 L Anion Gap 19 H BUN 66 H Creatinine 2.31 H Estim Creat Clear Calc 18.55 L Est GFR (MDRD) Non-Af 20 L BUN/Creatinine Ratio 28.7 H Glucose 157 H Calcium 9.5 Troponin T High Sens 46 H Troponin T Hi Sens 2 Hr 33 H NT pro BNP II 4839 H Radiography Diagnostic Testing: Clinical Impression(s) from Imaging Studies Chest X-Ray 04/16/25 12:00 IMPRESSION: Cardiomegaly and CHF. Small bilateral effusions right greater than left with bibasilar atelectasis worse on the right side. Reading Location: [facility] Discharge Plan Disposition Disposition: Acute Care Hospital [facility] Discharge Date/Time: 04/16/25 14:10
--- NOTE | 2025-04-16 11:35 | EKG12_ITS ---
Test Reason : SOB Blood Pressure : */* mmHG Vent. Rate : 109 BPM Atrial Rate : * BPM P-R Int : * ms QRS Dur : 148 ms QT Int : 390 ms P-R-T Axes : * -76 -21 degrees QTcB Int : 525 ms Atrial fibrillation with rapid ventricular response Left axis deviation Right bundle branch block Possible Lateral infarct , age undetermined Abnormal ECG Confirmed by Chris Fields ([id number]), acquisitions editor TATI LOPEZ ([id number]) on 04/22/2025 11:26:20 AM Referred By: Ras Blas Confirmed By: Chris Fields
[2025-04-16 11:55] LABS: Absolute Lymphocyte Count 0.77 X10^3/uL (0.83-4.51); Absolute Neutrophil Count 11.4 X10^3/uL (2.0-7.7); Basophil# 0.05 X10^3/uL; Basophil% 0.4 % (0-1); Eosinophil# 0.01 X10^3/uL; Eosinophils% 0.1 % (0-5); Hematocrit 42.8 % (37-47); Hemoglobin 13.3 g/dL (12.0-15.0); Lymphocyte # 0.77 X10^3/ul (0.83-4.51); Lymphocyte % 5.7 % (19-41); Mean Corp Hgb Conc 31.1 g/dL (32-36); Mean Corpuscular Hgb 28.1 pg (27.0-32.0); Mean Corpuscular Volume 90.5 fL (81-99); Mean Platelet Vol. 10.2 fl (6.2-12.0); Monocyte# 1.24 X10^3/uL; Monocyte% 9.2 % (0-10); NRBC Flagged by Analyzer 0 % (0-5); Neutrophil # 11.39 X10^3/uL (2.7-7.7); Neutrophil % 84.3 % (47-70); Platelet Count 322 K/mm3 (150-450); RBC Distribution Width CV 16.8 % (11.6-14.6); RBC Distribution Width SD 56.1 fl (35.1-43.9); Red Blood Count 4.73 M/mm3 (4.2-5.4); White Blood Count 13.5 K/mm3 (4.4-11.0)
--- NOTE | 2025-04-16 12:00 | RAD_ITS ---
PROCEDURE: CHEST PA AND LATERAL 04/16/2025 REASON FOR EXAM: SHORTNESS OF BREATH TECHNIQUE: Frontal and lateral views of the chest. COMPARISON: Prior study dated January 31, 2025. FINDINGS: Hardware: EKG electrodes are seen. Heart: Heart size is moderately enlarged. Calcification of the mitral valve annulus. Mediastinum: The mediastinal contour is unremarkable. Calcification of the aortic arch. Lungs: Bilateral pleural effusions right greater than left with bibasilar atelectasis worse at the right lung base. CHF. Bones: Degenerative changes are identified within the thoracic spine. RAD/Chest PA and Lateral IMPRESSION: Cardiomegaly and CHF. Small bilateral effusions right greater than left with b ibasilar atelectasis worse on the right side. Reading Location: [place] [id number]
[2025-04-16 12:08] LABS: International Normalized Ratio 3.4; Partial Thromboplast Time 36.3 Seconds (24.1-36.2); Prothrombin Time (Protime)PT. 34.7 SECONDS (11.7-14.9)
[2025-04-16 12:38] LABS: Pro- Brain NATRIURETIC PEPTIDE 4839 pg/mL (<=1800); Troponin T High Sensitivity 46 ng/L (<=14)
[2025-04-16 12:39] LABS: Anion Gap 19 (5-15); BUN 66 mg/dL (4-19); BUN/Creat Ratio 28.7 RATIO (10-20); Calcium,Total 9.5 mg/dL (7.6-11.0); Carbon Dioxide 19.6 mmol/L (21.0-32.0); Chloride 98 mmol/L (98-108); Creatinine, Serum 2.31 mg/dL (0.70-1.20); EST Glomerular Filtration Rate 20 (>60); Estimated Creatinine Clearance 18.55 ml/min (50-250); Glucose 157 mg/dL (70-99); Potassium 5.2 mmol/L (3.3-5.1); Sodium Level 137 mmol/L (133-145)
[2025-04-16] MEDS: Furosemide 40 MG/4 ML Vial IV (13:24)
--- NOTE | 2025-04-16 14:13 | PCM.HP.STD ---
HPI - General General Date of Admission: 04/16/25 Date of Service: 04/16/25 Chief Complaint: Shortness of breath HPI Narrative JESS JACKSON, is a 84 F who presents shortness of breath. Symptoms began roughly about 2 days ago. Has had chronic lower extremity edema on that she feels also in her abdomen and buttocks. Has a history of A-fib and has previously been treated for pleural effusions and swelling. The patient presented to the emergency room and was diagnosed with CHF exacerbation and received a dose of 40 mg of IV furosemide in the hospital service was contacted for admission. Chest x-ray in the emergency room showed cardiomegaly and CHF. Small bilateral pleural effusions. [facility] Medical History Diabetes Kidney disease Non-smoker Venous (peripheral) insufficiency Atrial fibrillation CHF (congestive heart failure) Venous stasis ulcer Hyperpigmentation of skin Lipodermatosclerosis of both lower extremities Right leg swelling Left leg swelling Varicose veins of lower extremity with inflammation, 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 Chronic venous insufficiency Generalized osteoarthrosis History of right breast cancer Cardiomegaly Home Medications ?Medication ?Instructions ?Recorded ?Last Taken ?Type gabapentin 300 mg capsule 300 mg PO DAILY 09/30/17 04/15/25 History (Neurontin) levothyroxine 100 mcg tablet 100 mcg PO DAILY 09/30/17 04/16/25 History liraglutide 0.6 mg/0.1 mL (18 mg/3 1.2 mg SQ BREAKFAST 09/30/17 04/16/25 History mL) subcutaneous pen injector (Victoza 2-Salomón) lisinopril 40 mg tablet 40 mg PO DAILY 09/30/17 04/15/25 History Held on 01/11/25. Instructions: Hold for SBP less than 130 mmHg. Follow with PCP and may decrease the dose to 10 mg daily. metformin 500 mg 24 hr 500 mg PO BID 09/30/17 04/16/25 History tablet,extended release (gastric retention) pentoxifylline 400 mg 1 tab PO TID 09/30/17 04/16/25 History tablet,extended release acetaminophen 500 mg tablet 1,000 mg PO QHS PRN pain 01/08/25 Unknown History (Acetaminophen Extra Strength) cetirizine 10 mg tablet (24Hour 10 mg PO DAILY PRN allergy symptoms 01/08/25 Unknown History Allergy) diosmin complex no.1 630 mg tablet 1 tab PO DAILY 01/08/25 04/15/25 History (Vasculera) dsohjzyrcqhk-noimpreh-ceahnp 1 tab PO DAILY 01/08/25 04/16/25 History tablet (A Thru Z High Potency tablet) simvastatin 20 mg tablet 20 mg PO QHS 01/08/25 04/15/25 History apixaban 5 mg tablet (Eliquis) 5 mg PO BID 90 days #180 tabs 01/23/25 04/16/25 Rx diltiazem HCl 240 mg 240 mg PO DAILY 3 months #90 caps 01/23/25 04/16/25 Rx capsule,extended release 24 hr (Cardizem CD) furosemide 40 mg tablet 40 mg PO DAILY 3 months #90 tabs 01/23/25 04/15/25 Rx metoprolol tartrate 50 mg tablet 50 mg PO BID 90 days #180 tabs 01/23/25 04/16/25 Rx biotin 5,000 mcg sublingual tablet 5,000 mcg sublingual DAILY 04/16/25 04/15/25 History Allergy/AdvReac Type Severity Reaction Status Date / Time enoxaparin (From Lovenox) Allergy Unknown Verified 04/16/25 11:15 oxycodone Allergy Unknown Verified 04/16/25 11:15 Penicillins (PCN) Allergy Unknown Verified 04/16/25 11:15 Family History (Updated 04/16/25 @ 14:[address] Ras Blas DO) Other Heart disease Surgical History History of lumpectomy of right breast History of lumbar laminectomy History of total replacement of both hip joints History of total bilateral knee replacement (TKR) Social History Smoking Status: Never smoker ROS ROS Narrative No chest pain. All review of systems were negative except as mentioned above in the history of present illness and the other review of systems. Vital Signs Vital Signs Vital Signs: 04/16/25 11:12 04/16/25 12:11 04/16/25 13:04 Temperature 36.5 C L Temperature Source Oral Pulse Rate 131 H Respiratory Rate 18 Respiratory Effort Respiratory Depth Respiratory Pattern Blood Pressure 93/66 Blood Pressure Mean 75 Pulse Ox 91 88 94 Oxygen Delivery Method Room Air Room Air Nasal Cannula Oxygen Flow Rate (L/min) 2 04/16/25 14:04 04/16/25 14:09 Temperature 36.6 C Temperature Source Pulse Rate 118 H Respiratory Rate 20 H Respiratory Effort Short of Breath Respiratory Depth Normal Respiratory Pattern Normal Blood Pressure 108/78 Blood Pressure Mean 88 Pulse Ox 94 Oxygen Delivery Method Room Air Oxygen Flow Rate (L/min) Weight Weight: 93.3 kg Body Mass Index (BMI) 38.8 Physical Exam Const alert and no apparent distress Constitutional Narrative: On oxygen. No respiratory distress. No conversational dyspnea. HEENT normocephalic and head/scalp atraumatic Eyes Eyes Narrative: No icterus. Glasses. Neck Neck Narrative: JVD. No thyromegaly. No lymphadenopathy. Resp Resp Narrative: Bibasilar crackles. Cardio regular rate and no murmurs GI normal to inspection, nondistended, normoactive bowel sounds and soft to palpation GI Narrative: Obese with pannus. Extremity Extremity Narrative: Bilateral tight lower extremity edema extending proximally upper thighs. Skin Skin Narrative: Chronic venous stasis changes to the lower extremities. Neuro Sensorium / Orientation: awake, alert and oriented to place Psych affect normal Results Lab / Micro Data 04/16/25 11:33 04/16/25 11:33 Labs: Laboratory Results - last 24 hr 04/16/25 11:33: WBC 13.5 H, RBC 4.73, Hgb 13.3, Hct 42.8, MCV 90.5, MCH 28.1, MCHC 31.1 L, RDW Std Deviation 56.1 H, RDW Coeff of Marcial 16.8 H, Plt Count 322, MPV 10.2, Immature Gran % (Auto) 0.300, Neut % (Auto) 84.3 H, Lymph % (Auto) 5.7 L, [place] % (Auto) 9.2, Eos % (Auto) 0.1, Baso % (Auto) 0.4, Absolute Neuts (auto) 11.4 H, Absolute Lymphs (auto) 0.77 L, Nucleated RBC % 0, PT 34.7 H, INR 3.4, APTT 36.3 H, Sodium 137, Potassium 5.2 H, Chloride 98, Carbon Dioxide 19.6 L, Anion Gap 19 H, BUN 66 H, Creatinine 2.31 H, Estim Creat Clear Calc 18.55 L, Est GFR (MDRD) Non-Af 20 L, BUN/Creatinine Ratio 28.7 H, Glucose 157 H, Calcium 9.5, Troponin T High Sens 46 H, NT pro BNP II 4839 H Imaging Radiology Impression Chest X-Ray 04/16/25 12:00 IMPRESSION: Cardiomegaly and CHF. Small bilateral effusions right greater than left with bibasilar atelectasis worse on the right side. Reading Location: [facility] Assessment & Plan Assessment/Plan (1) (HFpEF) heart failure with preserved ejection fraction: PLAN: Acute echo from January 09 showed EF of 64% with right ventricular systolic pressure of 60 mmHg. With her FERMÍN and prominent edema throughout, may have started on furosemide drip and monitor closely. Will recheck an echocardiogram to see if there has been any change with her EF Fluid restrict 1.5 L/day. Daily weights. (2) FERMÍN (acute kidney injury): PLAN: I suspect due to hypoperfusion from her CHF and hopefully with diuresis that will improve. Will check urine studies If worse, consider kidney ultrasound and/or nephrology consultation. PLAN: Plan Chronic conditions Diabetes mellitus type 2: Holding off on metformin given the FERMÍN. Continue Victoza. Sliding scale insulin. Check an A1c. Hypothyroidism: Continue levothyroxine A-fib: Continue with diltiazem and metoprolol tartrate. Continue anticoagulation with apixaban. Obesity class II: Complicates care and recovery. VTE prophylaxis: Not indicated as patient is already anticoagulated. CODE STATUS: Addressed with the patient. Patient wished to be DNR Comfort Care arrest and is okay with intubation. Patient advised that she can change her mind anytime she so wishes. Charges/Coding Visit Charges Inpatient E&M: 70024 Init Hosp L3
--- NOTE | 2025-04-16 14:18 | CASEMGMT ---
Care Management Face to Face with patient for initial transition planning/care coordination assessment in the ED.? This poem writer introduced self and role at [facility]. Patient alert and oriented. Patient willing to participate in assessment and is able to answer all questions appropriately.? Care providers, pharmacy, and demographics verified. Admitting Diagnosis:? CHF exacerbation Other diagnosis history: ?osteoarthrosis, h/o cancer PCP: ?[facility] Specialists: ?[facility] Preferred Pharmacy: ?[email or web address] Insurance: ?[employer] Prescription Benefit: Yes Living Will/HPOA: ?None LNOK: Living Arrangements: ?Lives with in one story home, independent with ADLs and IADLs Transportation: ? drives patient DME: ?rollator, shower bench HHC: ?[facility] HH in past SNF/Rehab: none Community Resources: none Behavioral Health History: ?none Patient goals: Patient wishes to discharge home.? Patient denies any further needs or concerns at this time. Disposition Plan: admission to acute; RN CM/SW to follow for discharge planning needs that may arise. Kay Cox, MAMMOGRAPHY TECHNICIAN, PRODUCTION MINER
[2025-04-16 14:35] LABS: Troponin T High Sens 2 HR 33 ng/L (<=14)
--- NOTE | 2025-04-16 14:36 | ECHOD_ITS ---
Reason For Study Reason For Study: CHF Procedure This was a 2D Doppler, Color Flow transthoracic echocardiogram. Exam performed portable in patient room. Left Ventricle Normal left ventricle. The estimated ejection fraction is 55-60 %. Atria The left atrium is severely enlarged. The right atrium is severely enlarged. Mitral Valve There is moderate to severe mitral annular calcification. Mild-Moderate (1-2+) anteriorly directed mitral valve insufficiency. Tricuspid Valve Normal tricuspid valve. Mild to moderate (1-2+) tricuspid valve insufficiency. Aortic Valve Moderate diffuse aortic valve calcification. Pulmonic Valve The pulmonic valve is not well visualized. Great Vessels The aortic root is not well visualized. Pericardium/Pleural No pericardial effusion. MMode/2D Measurements & Calculations LVIDd: 3.4 cm IVSd: 1.4 cm LVOT diam: 1.9 cm LVIDs: 2.2 cm LVPWd: 1.5 cm LVOT area: 2.7 cm2 RVDd: 4.2 cm FS: 36.5 % Ao root diam: 3.0 cm LAV(MOD-bp): 105.1 ml LA A4 area: 27.0 cm2 LAV(MOD-bp) Indexed: 55.9 ml/m2 LAV(MOD-sp2): 116.0 ml LAV(MOD-sp4): 89.0 ml LA dimension(2D): 4.7 cm Doppler Measurements & Calculations MV E max mehnaz: 130.1 cm/sec MV V2 max: 146.1 cm/sec Ao V2 max: 200.2 cm/sec MV max P.6 mmHg Ao max P.3 mmHg MV V2 mean: 77.6 cm/sec Ao V2 mean: 134.0 cm/sec MV mean P.1 mmHg Ao mean P.5 mmHg MV V2 VTI: 28.1 cm Ao V2 VTI: 34.2 cm AV (velocity ratio): 0.47 MVA(VTI): 1.5 cm2 JOSE(I,D): 1.3 cm2 JOSE(V,D): 1.2 cm2 AI max mehnaz: 317.9 cm/sec LV V1 max: 86.5 cm/sec MR max mehnaz: 407.2 cm/sec AI max P.4 mmHg LV V1 max P.0 mmHg MR max P.3 mmHg AI dec slope: 143.3 cm/sec2 LV V1 mean P.7 mmHg AI P1/2t: 649.9 msec LV V1 mean: 61.9 cm/sec LV V1 VTI: 16.0 cm SV(LVOT): 43.2 ml PA V2 max: 73.3 cm/sec TR max mhenaz: 333.2 cm/sec TR max P.4 mmHg ECHO/Echo Complete Interpretation Summary The estimated ejection fraction is 55-60 %. Severe biatrial enlargement. No significant change from previous echocardiogram. Ordering Physician: Ras Blas Referring Physician: Ras Blas Performed By: Nathan Stack RCS
[2025-04-16] MEDS: Furosemide 500 MG in Empty Viaflex 50 mL 1 EACH CONT INF (15:14)
[2025-04-16] MEDS: 0.9% Saline Lock 10 ML Syringe IV (15:14)
[2025-04-16] MEDS: Acetaminophen 325 MG Tablet 650 MG PO ×2 (16:04→22:23)
[2025-04-16] MEDS: Pentoxifylline 400 MG Tablet PO ×2 (16:05→22:23)
[2025-04-16] MEDS: Insulin Lispro 100 UNIT/ML INSULN.PEN SC ×2 (16:32→22:30)
[2025-04-16 18:29] LABS: Bedside Glucose 160 mg/dL (74-106)
[2025-04-16 19:33] LABS: Bacteria 0 SEEN /hpf (None Seen); Mucous, Urine 0 SEEN /hpf (<or=2+)
[2025-04-16 19:50] LABS: Color, Urine Yellow (Yellow); Glucose, Dipstick Normal (Normal); Ketone-Dipstick Negative (Negative); Leukocyte Esterase-Dipstick 25 /ul (Negative); Nitrite-Dipstick Negative (Negative); Occult Blood-Urine Negative /ul (Negative); Protein-Dipstick 100 mg/dl (Negative); Urine Bilirubin Dipstick Negative (Negative); Urine Clarity Sl. Cloudy (Clear); Urine Urobilinogen Normal (Normal)
[2025-04-16] MEDS: Ondansetron 4 MG/2 ML Vial IV (20:53)
[2025-04-16 21:34] LABS: White Blood Cells 5-10 SEEN /hpf (0-5)
[2025-04-16 21:35] LABS: Red Blood Cells-Urine 0-5 SEEN /hpf (0-5); Squamous Epithelial Cells - UA 0-5 SEEN /hpf (5-10)
[2025-04-16] MEDS: APIXABAN 5 MG TABLET PO (22:23)
[2025-04-16] MEDS: Atorvastatin Calcium 10 MG Tablet PO (22:23)
[2025-04-16] MEDS: Metoprolol Tartrate 50 MG Tablet PO (22:23)
[2025-04-16 23:38] LABS: Bedside Glucose 158 mg/dL (74-106)
[2025-04-17] VITALS (36 sets, daily range): BP systolic 86–124; BP diastolic 38–91; PULSE 94–137; RESP 12–32; TEMP 35.8–37; O2SAT 92–99; BMI 37.9
[2025-04-17] MEDS: guaiFENesin 600 MG Tablet PO ×3 (01:11→19:59)
[2025-04-17] MEDS: Metoprolol Tartrate 25 MG Tablet PO (03:21)
[2025-04-17 04:49] LABS: Absolute Neutrophil Count 11.8 X10^3/uL (2.0-7.7); Basophil# 0.05 X10^3/uL; Basophil% 0.4 % (0-1); Hematocrit 41.3 % (37-47); Lymphocyte % 4.5 % (19-41); Mean Corp Hgb Conc 31.5 g/dL (32-36); Mean Corpuscular Hgb 28.3 pg (27.0-32.0); Mean Platelet Vol. 10.4 fl (6.2-12.0); Monocyte% 6.7 % (0-10); NRBC Flagged by Analyzer 0 % (0-5); Neutrophil # 11.83 X10^3/uL (2.7-7.7); Neutrophil % 87.7 % (47-70); POSITIVE DIFFERENTIAL YES; Platelet Count 365 K/mm3 (150-450); RBC Distribution Width CV 16.8 % (11.6-14.6); RBC Distribution Width SD 55.6 fl (35.1-43.9); Red Blood Count 4.59 M/mm3 (4.2-5.4); White Blood Count 13.5 K/mm3 (4.4-11.0)
--- NOTE | 2025-04-17 05:04 | RAD_ITS ---
PROCEDURE: CHEST 1 VIEW (PORTABLE) 04/17/2025 REASON FOR EXAM: INCREASED SOB TECHNIQUE: Frontal view of the chest. COMPARISON: 04/16/2025 FINDINGS: Interval now lower lung volumes. The right pleural effusion appears to have increased in size now [id number] with further adjacent partial passive collapse and atelectasis. Small left pleural effusion. Bilateral perihilar ill-defined opacity may be related to pulmonary edema. Bilateral shoulder degenerative changes. RAD/Chest 1 View (Portable) IMPRESSION: Interval now lower lung volumes. The right pleural effusion appears to have increased in size now [id number] with further adjacent partial passive collapse and atelectasis. Small left pleural effusion. Bilateral perihilar ill-defined opacity may be related to pulmonary edema, appe ar increased. Reading Location: [id number]
[2025-04-17] MEDS: Ondansetron 4 MG/2 ML Vial IV ×3 (05:08→20:07)
[2025-04-17 05:13] LABS: Anion Gap 18 (5-15); BUN 79 mg/dL (4-19); Calcium,Total 9.4 mg/dL (7.6-11.0); Carbon Dioxide 22.2 mmol/L (21.0-32.0); Chloride 98 mmol/L (98-108); Creatinine, Serum 2.62 mg/dL (0.70-1.20); EST Glomerular Filtration Rate 17 (>60); Estimated Creatinine Clearance 16.15 ml/min (50-250); Glucose 173 mg/dL (70-99); Hemoglobin A1c 6.9 % (<=5.6); Magnesium 2.4 mg/dL (1.5-2.2); Potassium 4.9 mmol/L (3.3-5.1); Sodium Level 138 mmol/L (133-145)
[2025-04-17] MEDS: Levothyroxine 100 MCG Tablet PO (05:43)
[2025-04-17] MEDS: Pentoxifylline 400 MG Tablet PO ×2 (05:43→20:00)
--- NOTE | 2025-04-17 06:02 | CPS ---
Pt was on bipap for 45 min. tolerated ok, was unable to spit out mucus. It was dark yellow and thick. As soon as pt came off bipap she belched and spit up/vomit acid and mucus. RN aware. AIRVO started. Pt more comfortable on AIRVO 45L 40%.... then bipap.
[2025-04-17] MEDS: Insulin Lispro 100 UNIT/ML INSULN.PEN SC ×2 (06:43→19:58)
[2025-04-17 07:04] LABS: Bedside Glucose 175 mg/dL (74-106)
--- NOTE | 2025-04-17 07:37 | CT_ITS ---
PROCEDURE: CHEST WITHOUT CONTRAST 04/17/2025 REASON FOR EXAM: HYPOXIA History of breast cancer. TECHNIQUE: Chest CT without contrast. Coronal and Sagittal reconstruction series were provided. One or more dose reduction techniques were used (e.g., Automated exposure control, adjustment of the mA and/or kV according to patient size, use of iterative reconstruction technique RADIATION DOSE SUMMARY: CTDlvol: 19 mGy DLP: 732.93 mGycm COMPARISON: Prior chest radiograph done earlier in the day. FINDINGS: Hardware: EKG electrodes are seen. There is a 2.5 cm nodule in the inferior aspect of the right breast with peripheral calcification. Lymph nodes: Benign-appearing mediastinal lymph nodes. Heart and Vasculature: Mild cardiomegaly. Small pericardial effusion. Calcification of the mitral valve annulus. Coronary Artery Calcifications: Present Lungs and Airways: Large right pleural effusion with compressive atelectasis and/or infiltrates at both lung bases worse on the right side. Small left pleural effusion. Upper Abdomen: Adrenal hyperplasia. Bones: Degenerative changes of the thoracic spine. CT/Chest without Contrast IMPRESSION: Coronary artery calcification (CAC) is is present Large right pleural effusion with compressive atelectasis. Small left pleural effusion with compressive atelectasis. Reading Location: [place] [id number]
[2025-04-17] MEDS: APIXABAN 5 MG TABLET PO (09:05)
[2025-04-17] MEDS: 0.9% Saline Lock 10 ML Syringe IV ×3 (09:05→20:07)
[2025-04-17] MEDS: dilTIAZem CD 240 MG Capsule PO (09:05)
[2025-04-17] MEDS: Metoprolol Tartrate 25 MG Tablet 75 MG PO ×2 (09:08→23:11)
--- NOTE | 2025-04-17 11:29 | PCM.PN.HOSP ---
Reason for Visit Reason for Visit: Diagnoses Unspecified diastolic (congestive) heart failure (04/16/25) Acute kidney failure, unspecified (04/16/25) Subjective Subjective Patient is an 84-year-old lady with past medical history significant for paroxysmal A-fib who presented with progressive shortness of breath and assessment of acute congestive heart failure made admitted to monitored bed for further management Objective Data Objective Data Vital Signs: Vital Signs Temp Pulse Resp BP Pulse Ox O2 Del Method O2 Flow Rate 98.4 F 135 H 28 H 110/78 95 Nasal Cannula 6 04/17/25 06:00 04/17/25 09:08 04/17/25 06:00 04/17/25 09:08 04/17/25 07:40 04/17/25 07:40 04/17/25 07:40 FiO2 40 04/17/25 06:07 Oxygen Flow Rate (L/min) 6 Oxygen Delivery Method Nasal Cannula Weight: 91.2 kg Body Mass Index (BMI) 37.9 Intake & Output: Intake and Output for Last 24 Hours 04/15/25 04/16/25 04/17/25 23:59 23:59 23:59 Intake Total 500 / 750 506.85 / 506.85 Output Total 150 / 220 200 / 200 Balance 350 / 530 306.85 / 306.85 Lab / Micro Data 04/17/25 04:38 04/17/25 04:38 Labs: Laboratory Results - last 24 hr 04/16/25 11:33: WBC 13.5 H, RBC 4.73, Hgb 13.3, Hct 42.8, MCV 90.5, MCH 28.1, MCHC 31.1 L, RDW Std Deviation 56.1 H, RDW Coeff of Marcial 16.8 H, Plt Count 322, MPV 10.2, Immature Gran % (Auto) 0.300, Neut % (Auto) 84.3 H, Lymph % (Auto) 5.7 L, [place] % (Auto) 9.2, Eos % (Auto) 0.1, Baso % (Auto) 0.4, Absolute Neuts (auto) 11.4 H, Absolute Lymphs (auto) 0.77 L, Nucleated RBC % 0, PT 34.7 H, INR 3.4, APTT 36.3 H, Sodium 137, Potassium 5.2 H, Chloride 98, Carbon Dioxide 19.6 L, Anion Gap 19 H, BUN 66 H, Creatinine 2.31 H, Estim Creat Clear Calc 18.55 L, Est GFR (MDRD) Non-Af 20 L, BUN/Creatinine Ratio 28.7 H, Glucose 157 H, Calcium 9.5, Troponin T High Sens 46 H, NT pro BNP II 4839 H 04/16/25 13:32: Troponin T Hi Sens 2 Hr 33 H 04/16/25 16:09: POC Glucose 160 H 04/16/25 19:01: Urine Color Yellow, Urine Clarity Sl. Cloudy, Urine pH 5.0, Ur Specific [place] 1.020, Urine Protein 100 H, Urine Glucose (UA) Normal, Urine Ketones Negative, Urine Occult Blood Negative, Urine Nitrite Negative, Urine Bilirubin Negative, Urine Urobilinogen Normal, Ur Leukocyte Esterase 25 H, Urine RBC 0-5 SEEN, Urine WBC 5-10 SEEN, Ur Squamous Epith Cells 0-5 SEEN, Urine Bacteria 0 SEEN, Urine Mucus 0 SEEN, Urine Creatinine 96.50 04/16/25 22:29: POC Glucose 158 H 04/17/25 04:38: WBC 13.5 H, RBC 4.59, Hgb 13.0, Hct 41.3, MCV 90.0, MCH 28.3, MCHC 31.5 L, RDW Std Deviation 55.6 H, RDW Coeff of Marcial 16.8 H, Plt Count 365, MPV 10.4, Immature Gran % (Auto) 0.700, Neut % (Auto) 87.7 H, Lymph % (Auto) 4.5 L, [place] % (Auto) 6.7, Eos % (Auto) 0.0, Baso % (Auto) 0.4, Absolute Neuts (auto) 11.8 H, Absolute Lymphs (auto) 0.60 L, Nucleated RBC % 0, Sodium 138, Potassium 4.9, Chloride 98, Carbon Dioxide 22.2, Anion Gap 18 H, BUN 79 H, Creatinine 2.62 H, Estim Creat Clear Calc 16.15 L, Est GFR (MDRD) Non-Af 17 L, BUN/Creatinine Ratio 30.0 H, Glucose 173 H, Hemoglobin A1c 6.9 H, Calcium 9.4, Magnesium 2.4 H 04/17/25 06:41: POC Glucose 175 H Radiography Diagnostic Testing: Radiology Impression Chest X-Ray 04/16/25 12:00 IMPRESSION: Cardiomegaly and CHF. Small bilateral effusions right greater than left with bibasilar atelectasis worse on the right side. Reading Location: [facility]- Echocardiogram 04/16/25 14:36 Interpretation Summary The estimated ejection fraction is 55-60 %. Severe biatrial enlargement. No significant change from previous echocardiogram. Ordering Physician: Ras Blas Referring Physician: Ras Blas Performed By: Nathan Stack RCS Chest X-Ray 04/17/25 05:04 IMPRESSION: Interval now lower lung volumes. The right pleural effusion appears to have increased in size now [id number] with further adjacent partial passive collapse and atelectasis. Small left pleural effusion. Bilateral perihilar ill-defined opacity may be related to pulmonary edema, appear increased. Reading Location: [id number] Chest CT 04/17/25 07:37 IMPRESSION: Coronary artery calcification (CAC) is is present Large right pleural effusion with compressive atelectasis. Small left pleural effusion with compressive atelectasis. Reading Location: [facility]- Physical Exam Narrative GENERAL: cooperative but dyspneic at rest HEENT: Atraumatic; normocephalic EYES; Anicteric, Normal Conjunctiva NECK; supple, normal thyroid, RESPIRATORY: Diminished to auscultation, bibasilar Rales CARDIOVASCULAR: Regular S1 S2, GI: soft, normoactive bowel sounds, : No Renal angle tenderness; EXTREMITIES: Bipedal edema, no clubbing, MUSCULOSKELETAL: no muscle wasting NEURO: Awake; no lateralizing signs. SKIN: No Rash PSYCH; Flat affect Assessment & Plan Assessment/Plan (1) (HFpEF) heart failure with preserved ejection fraction: (2) Pleural effusion: (3) FERMÍN (acute kidney injury): (4) Atrial fibrillation with rapid ventricular response: PLAN: Plan Patient is an 84-year-old lady with past medical history significant for paroxysmal A-fib who presented with progressive shortness of breath and assessment of acute congestive heart failure made admitted to monitored bed for further management 1. Acute on chronic congestive heart failure with preserved ejection fraction ? Patient admitted to monitored bed treatment initiated with strict input and output, daily weights, fluid restriction as well as diuretic therapy with furosemide drip. As part of patient's management 2D echo was ordered on admission demonstrated ejection fraction of 55-60 % and Severe biatrial enlargement. 2. Large right-sided pleural effusion ? CT of the chest obtained did show Large right pleural effusion with compressive atelectasis. Small left pleural effusion with compressive atelectasis.. An order was given for patient to undergo ultrasound-guided thoracocentesis as part of subsequent evaluation ordered pleural fluid studies including LDH WBC, and glucose levels 3. Acute kidney injury ? Suspected to be secondary to hypoperfusion from patient congestive heart failure. Creatinine from 01/10/2025 was 1.07 creatinine on admission was 2.31. Patient kidney function actually did worsen with diuresis with creatinine bumping up to 2.62. Subsequently requested for kidney ultrasound and nephrology consultation obtained 4. Paroxysmal atrial fibrillation ? Patient went into A-fib with RVR necessitating patient being started on Cardizem drip which is currently being titrated to keep heart rate less than 100 5. Acute hypoxia ? Secondary to congestive heart failure and large right sided pleural effusion. Patient was placed on supplemental oxygen in addition to bronchodilator treatment. Diabetes mellitus type 2 ? Patient is on metformin held on admission placed on Accu-Cheks AC and at bedtime with sliding scale coverage 7. Essential hypertension ? Patient is on 40 mg of lisinopril held given patient worsening kidney function 8. Hypothyroidism ? Patient is on levothyroxine home dose continued 9. Class II obesity ? Complicating care weight loss advised 10. Degenerative joint disease ? Pain meds as needed 11. Dyslipidemia ?Patient is on statin therapy, continued at home dose 12. DVT prophylaxis ? Patient already on systemic anticoagulation with apixaban 13. Bilateral lower extremity venous insufficiency Manage patient to follow-up with PCP for outpatient management Charges/Coding Visit Charges Inpatient E&M: 97297 [facility] Hosp L3
[2025-04-17] MEDS: Albuterol 2.5 MG/3 ML VIAL.NEB. INHALATION ×2 (11:41→16:39)
--- NOTE | 2025-04-17 11:48 | US_ITS ---
EXAM: US Retroperitoneal Limited, Renal CLINICAL INDICATION: FERMÍN TECHNIQUE: Real-time limited ultrasound of the retroperitoneum with image documentation. COMPARISON: No relevant prior studies available. FINDINGS: RIGHT KIDNEY: Unremarkable. No stones. No hydronephrosis. The right kidney measures 10.6 x 501 x 5.8 cm. LEFT KIDNEY: Unremarkable. No stones. No hydronephrosis. The left kidney measures 12.0 x 6.39 x 5.2 cm. BLADDER: The urinary bladder is decompressed by the Metzger catheter. US/Kidney and Bladder IMPRESSION: No acute findings in the retroperitoneum. Reading [facility]
--- NOTE | 2025-04-17 11:48 | US_ITS ---
PROCEDURE: THORACENTESIS W US 04/19/2025 REASON FOR EXAM: LARGE RIGHT-SIDED PLEURAL EFFUSION TECHNIQUE: The procedure as well as the benefits and possible complications were explained to the patient including infection, bleeding and pneumothorax. Informed consent was obtained. The overlying skin was prepped and draped in the usual sterile fashion. Following local anesthetic application, a 5 [place] catheter was placed into the right pleural cavity. 1350 mL of blood-tinged fluid was aspirated. A sample was sent to the laboratory for analysis. COMPARISON: Prior chest radiograph. FINDINGS: Successful ultrasound-guided right thoracentesis US/Thoracentesis W US IMPRESSION: Successful ultrasound-guided right thoracentesis. No immediate complication no john. Reading Location: [place] [id number]
[2025-04-17 12:10] LABS: Bedside Glucose 174 mg/dL (74-106)
[2025-04-17] MEDS: Diltiazem 125 MG in Dextrose 5%-Water (100mL Bag) 100 ML IV (12:20)
[2025-04-17 15:11] LABS: Urea Nitrogen, Urine 301 mg/dL (NO RANGE EST.)
[2025-04-17 16:43] LABS: Bedside Glucose 197 mg/dL (74-106)
[2025-04-17] MEDS: Atorvastatin Calcium 10 MG Tablet PO (20:00)
[2025-04-17] MEDS: Gabapentin 300 MG Capsule PO (20:07)
--- NOTE | 2025-04-17 20:10 | NURSING ---
Pt falling asleep, asking if she can have meds.
[2025-04-17 20:29] LABS: Bedside Glucose 205 mg/dL (74-106)
[2025-04-17] MEDS: Acetaminophen 325 MG Tablet 650 MG PO (23:19)
[2025-04-18] VITALS (32 sets, daily range): BP systolic 82–122; BP diastolic 6–82; PULSE 67–99; RESP 18–27; TEMP 36–36.9; O2SAT 89–98
[2025-04-18] MEDS: Diltiazem 125 MG in Dextrose 5%-Water (100mL Bag) 100 ML 10 MG IV (01:25)
[2025-04-18] MEDS: Furosemide 500 MG in Empty Viaflex 50 mL 1 EACH CONT INF (01:26)
[2025-04-18 05:47] LABS: Absolute Lymphocyte Count 0.49 X10^3/uL (0.83-4.51); Absolute Neutrophil Count 12.4 X10^3/uL (2.0-7.7); Basophil# 0.01 X10^3/uL; Basophil% 0.1 % (0-1); Hematocrit 39.6 % (37-47); Hemoglobin 12.7 g/dL (12.0-15.0); Lymphocyte # 0.49 X10^3/ul (0.83-4.51); Lymphocyte % 3.5 % (19-41); Mean Corp Hgb Conc 32.1 g/dL (32-36); Mean Corpuscular Hgb 28.5 pg (27.0-32.0); Mean Platelet Vol. 9.9 fl (6.2-12.0); Monocyte# 0.87 X10^3/uL; Monocyte% 6.3 % (0-10); NRBC Flagged by Analyzer 0 % (0-5); Neutrophil # 12.38 X10^3/uL (2.7-7.7); Neutrophil % 89.5 % (47-70); POSITIVE DIFFERENTIAL YES; Platelet Count 347 K/mm3 (150-450); RBC Distribution Width CV 16.7 % (11.6-14.6); RBC Distribution Width SD 54.4 fl (35.1-43.9); Red Blood Count 4.45 M/mm3 (4.2-5.4); White Blood Count 13.8 K/mm3 (4.4-11.0)
[2025-04-18 06:28] LABS: Anion Gap 16 (5-15); BUN 96 mg/dL (4-19); BUN/Creat Ratio 33.7 RATIO (10-20); Calcium,Total 9.3 mg/dL (7.6-11.0); Carbon Dioxide 24.2 mmol/L (21.0-32.0); Chloride 100 mmol/L (98-108); Creatinine, Serum 2.86 mg/dL (0.70-1.20); EST Glomerular Filtration Rate 16 (>60); Estimated Creatinine Clearance 14.79 ml/min (50-250); Glucose 191 mg/dL (70-99); Magnesium 2.5 mg/dL (1.5-2.2); Phosphorus 6.5 mg/dL (2.7-4.5); Potassium 4.4 mmol/L (3.3-5.1); Sodium Level 140 mmol/L (133-145)
[2025-04-18] MEDS: Insulin Lispro 100 UNIT/ML INSULN.PEN SC ×3 (06:42→21:47)
[2025-04-18] MEDS: Levothyroxine 100 MCG Tablet PO (06:42)
[2025-04-18 07:03] LABS: Bedside Glucose 176 mg/dL (74-106)
[2025-04-18] MEDS: Albuterol 2.5 MG/3 ML VIAL.NEB. INHALATION (08:35)
--- NOTE | 2025-04-18 09:10 | PCM.PN.HOSP ---
Reason for Visit Reason for Visit: Diagnoses Unspecified atrial fibrillation (04/16/25) Unspecified diastolic (congestive) heart failure (04/16/25) Pleural effusion, not elsewhere classified (04/16/25) Acute kidney failure, unspecified (04/16/25) Subjective Subjective Patient seen complains of feeling weak complains of nausea. Patient was started on Cardizem drip for her A-fib with RVR remains on the Cardizem drip. Patient kidney function worsening ordered renal ultrasound. Admitted patient's family regarding her clinical condition. Plans for patient to undergo ultrasound-guided thoracocentesis in a.m. Objective Data Objective Data Vital Signs: Vital Signs Temp Pulse Resp BP Pulse Ox O2 Del Method O2 Flow Rate 97.1 F L 86 18 101/57 L 93 Nasal Cannula 3 04/18/25 03:00 04/18/25 08:36 04/18/25 08:36 04/18/25 07:00 04/18/25 08:36 04/18/25 08:36 04/18/25 08:36 FiO2 40 04/17/25 06:07 Oxygen Flow Rate (L/min) 3 Oxygen Delivery Method Nasal Cannula Weight: 91.2 kg Body Mass Index (BMI) 37.9 Intake & Output: Intake and Output for Last 24 Hours 04/16/25 04/17/25 04/18/25 23:59 23:59 23:59 Intake Total 500 / 750 709.27 / 719.27 198.41 / 198.41 Output Total 150 / 220 525 / 525 200 / 200 Balance 350 / 530 184.27 / 194.27 -1.59 / -1.59 Lab / Micro Data 04/18/25 05:35 04/18/25 05:35 Labs: Laboratory Results - last 24 hr 04/17/25 11:52: POC Glucose 174 H 04/17/25 13:53: Urine Urea Nitrogen 301 04/17/25 16:24: POC Glucose 197 H 04/17/25 19:56: POC Glucose 205 H 04/18/25 05:35: WBC 13.8 H, RBC 4.45, Hgb 12.7, Hct 39.6, MCV 89.0, MCH 28.5, MCHC 32.1, RDW Std Deviation 54.4 H, RDW Coeff of Marcial 16.7 H, Plt Count 347, MPV 9.9, Immature Gran % (Auto) 0.600, Neut % (Auto) 89.5 H, Lymph % (Auto) 3.5 L, [place] % (Auto) 6.3, Eos % (Auto) 0.0, Baso % (Auto) 0.1, Absolute Neuts (auto) 12.4 H, Absolute Lymphs (auto) 0.49 L, Nucleated RBC % 0, Sodium 140, Potassium 4.4, Chloride 100, Carbon Dioxide 24.2, Anion Gap 16 H, BUN 96 H, Creatinine 2.86 H, Estim Creat Clear Calc 14.79 L, Est GFR (MDRD) Non-Af 16 L, BUN/Creatinine Ratio 33.7 H, Glucose 191 H, Calcium 9.3, Phosphorus 6.5 H, Magnesium 2.5 H 04/18/25 06:38: POC Glucose 176 H Micro: Microbiology 04/16/25 16:16 Sputum, Expectorated/Coughed Gram Stain - Final Radiography Diagnostic Testing: Radiology Impression Renal Ultrasound 04/17/25 11:48 IMPRESSION: No acute findings in the retroperitoneum. Reading Location: [facility] Physical Exam Narrative GENERAL: Appears fatigued and ill looking HEENT: Atraumatic; normocephalic EYES; Anicteric, Normal Conjunctiva NECK; supple, normal thyroid, RESPIRATORY: Diminished to auscultation, bibasilar Rales CARDIOVASCULAR: Irregular S1-S2 but rate controlled GI: soft, normoactive bowel sounds, : No Renal angle tenderness; EXTREMITIES: Bipedal edema, no clubbing, MUSCULOSKELETAL: no muscle wasting NEURO: Awake; no lateralizing signs. SKIN: No Rash PSYCH; Flat affect Assessment & Plan Assessment/Plan (1) (HFpEF) heart failure with preserved ejection fraction: (2) Pleural effusion: (3) FERMÍN (acute kidney injury): (4) Atrial fibrillation with rapid ventricular response: PLAN: Plan Patient is an 84-year-old lady with past medical history significant for paroxysmal A-fib who presented with progressive shortness of breath and assessment of acute congestive heart failure made admitted to monitored bed for further management 1. Acute on chronic congestive heart failure with preserved ejection fraction ? Patient admitted to monitored bed treatment initiated with strict input and output, daily weights, fluid restriction as well as diuretic therapy with furosemide drip. As part of patient's management 2D echo was ordered on admission demonstrated ejection fraction of 55-60 % and Severe biatrial enlargement. ? Patient is on furosemide drip however response to therapy not impressive. Consult placed to cardiology. Family request 2. Large right-sided pleural effusion ? CT of the chest obtained did show Large right pleural effusion with compressive atelectasis. Small left pleural effusion with compressive atelectasis.. An order was given for patient to undergo ultrasound-guided thoracocentesis as part of subsequent evaluation ordered pleural fluid studies including LDH WBC, and glucose levels ? 04/18/2025; patient ultrasound guided thoracocentesis centesis scheduled for 04/19/2025. 3. Acute kidney injury ? Suspected to be secondary to hypoperfusion from patient congestive heart failure. Creatinine from 01/10/2025 was 1.07 creatinine on admission was 2.31. Patient kidney function actually did worsen with diuresis with creatinine bumping up to 2.62. Subsequently requested for kidney ultrasound and nephrology consultation obtained ? 04/18/2025; patient kidney function did worsen. Subsequently requested nephrology consultation as well as ordered kidney ultrasound. Repeat BMP ordered in a.m. for follow-up 4. Paroxysmal atrial fibrillation ? Patient went into A-fib with RVR necessitating patient being started on Cardizem drip which is currently being titrated to keep heart rate less than 100 5. Acute hypoxia ? Secondary to congestive heart failure and large right sided pleural effusion. Patient was placed on supplemental oxygen in addition to bronchodilator treatment. ? 04/18/2025; patient to be assessed for home oxygen prior to this 6. Diabetes mellitus type 2 ? Patient is on metformin held on admission placed on Accu-Cheks AC and at bedtime with sliding scale coverage 7. Essential hypertension ? Patient is on 40 mg of lisinopril held given patient worsening kidney function 8. Hypothyroidism ? Patient is on levothyroxine home dose continued 9. Class II obesity ? Complicating care weight loss advised 10. Degenerative joint disease ? Pain meds as needed 11. Dyslipidemia ?Patient is on statin therapy, continued at home dose 12. DVT prophylaxis ? Patient already on systemic anticoagulation with apixaban 13. Bilateral lower extremity venous insufficiency Manage patient to follow-up with PCP for outpatient management 14. Suspected pneumonia ? Patient has elevated WBC count with a left shift. CT of the chest obtained the day prior demonstrated infiltrate at the bases of both lungs. Patient subsequently started on ceftriaxone and azithromycin. Also did send for sputum and blood culture Time spent in the patient's overall evaluation,decision-making process, review of diagnostic data, adjustment of management, discussion with other providers, nursing nursing and ancillary staff involved in patient's care documentation, 55 Minutes Charges/Coding Visit Charges Inpatient E&M: 52919 [facility] Hosp L3
[2025-04-18] MEDS: Metoprolol Tartrate 25 MG Tablet 75 MG PO ×2 (09:50→21:36)
[2025-04-18] MEDS: dilTIAZem CD 240 MG Capsule PO (09:50)
[2025-04-18] MEDS: guaiFENesin 600 MG Tablet PO ×2 (09:50→21:36)
[2025-04-18] MEDS: Ceftriaxone 2 GM in 0.9% Normal Saline (50mL MB+) 50 ML IV (11:00)
--- NOTE | 2025-04-18 11:14 | CON.PCM.RE_ITS ---
Assessment & Plan Assessment/Plan (1) FERMÍN (acute kidney injury): PLAN: Baseline creatinine is around 1.1. Previous admission creatinine was close to baseline. This admission creatinine is around 2.6-2.8. Renal ultrasound without any hydronephrosis. Urine analysis shows 2+ protein. HbA1c 6.9. Will send for quantification. She has significant volume overload in the form of lower extremity edema, repeated pleural effusions. Surprisingly echocardiogram showed ejection fraction normal, presumably this is diastolic dysfunction. However BNP last admission was only around 230. This admission proBNP is only twice the normal limits. Pleural fluid for analysis has been sent, this will tell us if it is transudative or exudative. Due to proteinuria, renal failure, repeated pleural effusions, will send serology to rule out autoimmune conditions. Discussed with family at bedside. They are worried about Lasix drip causing renal failure. Explained about the hemodynamic effects. If renal function continues to worsen, we may have to back off. All questions answered. Discussed with hospitalist HPI Consult Data Date of Consult: 04/18/25 HPI Narrative Reason for Consultation: fermín HPI Narrative: JESS JACKSON, is a 84 F who presents to the hospital with shortness of breath. Nephrology on consultation in view of acute renal failure. It seems she has known history of CKD stage IIIa, baseline creatinine around 1.1. This is her second hospitalization in 3 months with similar issue. She was admitted here with shortness of breath, fluid overload, pleural effusions in December. Was aggressively diuresed. Echocardiogram at that time showed preserved ejection fraction, she was thought to have diastolic dysfunction. However BNP was only 230 at that time. She was discharged home on Lasix, did okay for a couple of months. Came in with worsening shortness of breath. This admission she came in at pleural effusions, status post pleural tap. Has significant lower extremity edema, being diuresed with Lasix drip. She also has atrial fibrillation, currently on Cardizem drip. Blood pressure is borderline. Ray catheter indwelling, urine output acceptable. Creatinine last admission was close to baseline around 1.1. This admission creatinine is around 2.6. She denies any urinary complaints. No hematuria, dysuria, fever, chills, flank pain, kidney stones, UTIs, kidney surgeries. [facility] Medical History Diabetes Kidney disease Non-smoker Venous (peripheral) insufficiency Atrial fibrillation CHF (congestive heart failure) Venous stasis ulcer Hyperpigmentation of skin Lipodermatosclerosis of both lower extremities Right leg swelling Left leg swelling Varicose veins of lower extremity with inflammation, 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 Chronic venous insufficiency Generalized osteoarthrosis History of right breast cancer Cardiomegaly Home Medications ?Medication ?Instructions ?Recorded ?Last Taken ?Type gabapentin 300 mg capsule 300 mg PO QHS Neuropathy 09/0604/15/25 History (Neurontin) levothyroxine 100 mcg tablet 100 mcg PO DAILY 09/30/17 04/16/25 History lisinopril 40 mg tablet 40 mg PO DAILY 09/30/1703/22 History Held on 01/11/25. Instructions: Hold for SBP less than 130 mmHg. Follow with PCP and may decrease the dose to 10 mg daily. metformin 500 mg 24 hr 500 mg PO BID 09/30/1704/16 History tablet,extended release (gastric retention) pentoxifylline 400 mg 1 tab PO TID 09/30/17 History tablet,extended release acetaminophen 500 mg tablet 1,000 mg PO QHS PRN pain 0 01/08/25 Unknown History (Acetaminophen Extra Strength) cetirizine 10 mg tablet (24Hour 10 mg PO DAILY PRN all ergy symptoms 01/08/25 Unknown History Allergy) diosmin complex no.1 630 mg tablet 1 tab PO DAILY 12/2204/15/25 History (Vasculera) isocugfgiycd-dxbmlvfl-brmmdk 1 tab PO DAILY 01/08/25 0 04/16/25 History tablet (A Thru Z High Potency tablet) simvastatin 20 mg tablet 20 mg PO QHS 01/08/25 History apixaban 5 mg tablet (Eliquis) 5 mg PO BID 90 days #18 0 tabs 01/23/25 04/16/25 Rx diltiazem HCl 240 mg 240 mg PO DAILY 3 months #90 caps 01/23/25 04/16/25 Rx capsule,extended release 24 hr (Cardizem CD) furosemide 40 mg tablet 40 mg PO DAILY 3 months #90 tabs 01/23/25 04/15/25 Rx metoprolol tartrate 50 mg tablet 50 mg PO BID 90 days #180 tabs 01/23/25 04/16/25 Rx biotin 5,000 mcg sublingual tablet 5,000 mcg sublingua l DAILY 04/16/25 04/15/25 History semaglutide 0.25 mg or 0.5 mg (2 0.5 mg subcut QWEEK d iabetes 04/16/25 Unknown History mg/1.5 mL) subcutaneous pen injector (Ozempic) Allergy/AdvReac Type Severity Reaction Status Date / Time enoxaparin (From Lovenox) Allergy Unknown Verified 04/16/25 11:15 oxycodone Allergy Unknown Verified 04/16/25 11:15 Penicillins (PCN) Allergy Unknown Verified 04/16/25 11:15 Family History (Updated 04/16/25 @ 14:[address] Ras Blas DO) Other Heart disease Surgical History History of lumpectomy of right breast History of lumbar laminectomy History of total replacement of both hip joints History of total bilateral knee replacement (TKR) Social History Smoking Status: Never smoker ROS ROS Narrative Negative except above Physical Exam Narrative Alert awake oriented x 3 no obvious distress no pallor no icterus no JVD s1s2 no murmurs lungs clear abdomen soft no organomegaly +++ edema no cyanosis ray + Lab / Micro Data 04/18/25 05:35 04/18/25 05:35 Labs: Laboratory Results - last 24 hr 04/17/25 11:52: POC Glucose 174 H 04/17/25 13:53: Urine Urea Nitrogen 301 04/17/25 16:24: POC Glucose 197 H 04/17/25 19:56: POC Glucose 205 H 04/18/25 05:35: WBC 13.8 H, RBC 4.45, Hgb 12.7, Hct 39.6, MCV 89.0, MCH 28.5, MCHC 32.1, RDW Std Deviation 54.4 H, RDW Coeff of Marcial 16.7 H, Plt Count 347, MPV 9.9, Immature Gran % (Auto) 0.600, Neut % (Auto) 89.5 H, Lymph % (Auto) 3.5 L, [place] % (Auto) 6.3, Eos % (Auto) 0.0, Baso % (Auto) 0.1, Absolute Neuts (auto) 12.4 H, Absolute Lymphs (auto) 0.49 L, Nucleated RBC % 0, Sodium 140, Potassium 4.4, Chloride 100, Carbon Dioxide 24.2, Anion Gap 16 H, BUN 96 H, Creatinine 2.86 H, Estim Creat Clear Calc 14.79 L, Est GFR (MDRD) Non-Af 16 L, B UN/Creatinine Ratio 33.7 H, Glucose 191 H, Calcium 9.3, Phosphorus 6.5 H, M agnesium 2.5 H 04/18/25 06:38: POC Glucose 176 H Micro: Microbiology 04/16/25 16:16 Sputum, Expectorated/Coughed Gram Stain - Final 04/16/25 16:16 Sputum, Expectorated/Coughed Respiratory 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 Reading Location[facility]
[2025-04-18 11:35] LABS: Bedside Glucose 181 mg/dL (74-106)
[2025-04-18] MEDS: Azithromycin 500 MG in 0.9% Normal Saline (250mL Bag) 250 ML 255 MG IV (11:50)
--- NOTE | 2025-04-18 13:50 | PCM.CONS.C ---
Assessment & Plan Assessment/Plan (1) (HFpEF) heart failure with preserved ejection fraction: (2) Pleural effusion: (3) History of diabetes mellitus: (4) History of hypothyroidism: (5) Atrial fibrillation with rapid ventricular response: (6) FERMÍN (acute kidney injury): PLAN: Cardiac care plan; 84-year-old patient with history of paroxysmal atrial fibrillation this presentation she has progressive shortness of breath as well she has worsening of her renal function. Recently patient was in hospital in December 2024 with a similar episode of diastolic heart failure With pleural effusion requiring thoracocentesis. Other medical problem include history of hypothyroidism Diabetes mellitus Hyperlipidemia Venous stasis ulcers. With bilateral lower extremity edema. Patient has acute on chronic diastolic heart failure Recent echocardiogram showed LV function preserved With ejection fraction in the range of 55 to 60% Severe biatrial enlargement. Review of the current lab revealed, elevated creatinine to 2.8 Discussed, all her current medication will continue rate control using calcium channel castillo beta-castillo In addition will restart on heparin. As she is at high risk for stroke based on her [id number] score more than 4 Heparin can be stopped prior to thoracocentesis which she is set up for tomorrow. Patient to follow-up with the cardiology team at [facility] following discharge. Edward Le MD,[facility] HPI Consult Data Date of Consult: 04/18/25 HPI Narrative Reason for Consultation: HFpEF/A-fib with RVR. HPI Narrative: JESS JACKSON, is a 84 F who presents [facility] Medical History Diabetes Kidney disease Non-smoker Venous (peripheral) insufficiency Atrial fibrillation CHF (congestive heart failure) Venous stasis ulcer Hyperpigmentation of skin Lipodermatosclerosis of both lower extremities Right leg swelling Left leg swelling Varicose veins of lower extremity with inflammation, 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 Chronic venous insufficiency Generalized osteoarthrosis History of right breast cancer Cardiomegaly Home Medications ?Medication ?Instructions ?Recorded ?Last Taken ?Type gabapentin 300 mg capsule 300 mg PO QHS Neuropathy 09/30/17 04/15/25 History (Neurontin) levothyroxine 100 mcg tablet 100 mcg PO DAILY 09/30/17 04/16/25 History lisinopril 40 mg tablet 40 mg PO DAILY 09/30/17 04/15/25 History Held on 01/11/25. Instructions: Hold for SBP less than 130 mmHg. Follow with PCP and may decrease the dose to 10 mg daily. metformin 500 mg 24 hr 500 mg PO BID 09/30/17 04/16/25 History tablet,extended release (gastric retention) pentoxifylline 400 mg 1 tab PO TID 09/30/17 04/16/25 History tablet,extended release acetaminophen 500 mg tablet 1,000 mg PO QHS PRN pain 01/08/25 Unknown History (Acetaminophen Extra Strength) cetirizine 10 mg tablet (24Hour 10 mg PO DAILY PRN allergy symptoms 01/08/25 Unknown History Allergy) diosmin complex no.1 630 mg tablet 1 tab PO DAILY 01/08/25 04/15/25 History (Vasculera) skffybokzlvg-xpnsdvpa-cdpjrq 1 tab PO DAILY 01/08/25 04/16/25 History tablet (A Thru Z High Potency tablet) simvastatin 20 mg tablet 20 mg PO QHS 01/08/25 04/15/25 History apixaban 5 mg tablet (Eliquis) 5 mg PO BID 90 days #180 tabs 01/23/25 04/16/25 Rx diltiazem HCl 240 mg 240 mg PO DAILY 3 months #90 caps 01/23/25 04/16/25 Rx capsule,extended release 24 hr (Cardizem CD) furosemide 40 mg tablet 40 mg PO DAILY 3 months #90 tabs 01/23/25 04/15/25 Rx metoprolol tartrate 50 mg tablet 50 mg PO BID 90 days #180 tabs 01/23/25 04/16/25 Rx biotin 5,000 mcg sublingual tablet 5,000 mcg sublingual DAILY 04/16/25 04/15/25 History semaglutide 0.25 mg or 0.5 mg (2 0.5 mg subcut QWEEK diabetes 04/16/25 Unknown History mg/1.5 mL) subcutaneous pen injector (Ozempic) Allergy/AdvReac Type Severity Reaction Status Date / Time enoxaparin (From Lovenox) Allergy Unknown Verified 04/16/25 11:15 oxycodone Allergy Unknown Verified 04/16/25 11:15 Penicillins (PCN) Allergy Unknown Verified 04/16/25 11:15 Family History (Updated 04/16/25 @ 14:[address] Ras Blas DO) Other Heart disease Surgical History History of lumpectomy of right breast History of lumbar laminectomy History of total replacement of both hip joints History of total bilateral knee replacement (TKR) Social History Smoking Status: Never smoker Physical Exam Cardio Cardio Narrative: Patient seen and evaluated at bedside family daughter and were at bedside as well as the nursing staff She appears fatigued, no symptoms of chest pain Cardiac rhythm revealed A-fib with controlled ventricular rate. Cardiac exam S1-S2 is irregular No systolic or diastolic murmur Chest exam diminished air entry bilateral. Risk Stratification Risk Stratification Applicable: No Objective Data Vital Signs: Vital Signs Temp Pulse Resp BP Pulse Ox O2 Del Method O2 Flow Rate 96.8 F L 67 23 H 82/56 L 95 Nasal Cannula 2 04/18/25 09:00 04/18/25 13:09 04/18/25 13:09 04/18/25 13:09 04/18/25 13:09 04/18/25 13:09 04/18/25 13:09 FiO2 40 04/17/25 06:07 Oxygen Flow Rate (L/min) 2 Oxygen Delivery Method Nasal Cannula Weight: 201 lb 0.985 oz Body Mass Index (BMI) 37.9 Intake & Output: Intake and Output for Last 24 Hours 04/16/25 04/17/25 04/18/25 23:59 23:59 23:59 Intake Total 500 / 750 709.27 / 719.27 790.75 / 790.75 Output Total 150 / 220 525 / 525 425 / 425 Balance 350 / 530 184.27 / 194.27 365.75 / 365.75 Lab / Micro Data 04/18/25 05:35 04/18/25 05:35 Labs: Laboratory Results - last 24 hr 04/17/25 13:53: Urine Urea Nitrogen 301 04/17/25 16:24: POC Glucose 197 H 04/17/25 19:56: POC Glucose 205 H 04/18/25 05:35: WBC 13.8 H, RBC 4.45, Hgb 12.7, Hct 39.6, MCV 89.0, MCH 28.5, MCHC 32.1, RDW Std Deviation 54.4 H, RDW Coeff of Marcial 16.7 H, Plt Count 347, MPV 9.9, Immature Gran % (Auto) 0.600, Neut % (Auto) 89.5 H, Lymph % (Auto) 3.5 L, [place] % (Auto) 6.3, Eos % (Auto) 0.0, Baso % (Auto) 0.1, Absolute Neuts (auto) 12.4 H, Absolute Lymphs (auto) 0.49 L, Nucleated RBC % 0, Sodium 140, Potassium 4.4, Chloride 100, Carbon Dioxide 24.2, Anion Gap 16 H, BUN 96 H, Creatinine 2.86 H, Estim Creat Clear Calc 14.79 L, Est GFR (MDRD) Non-Af 16 L, BUN/Creatinine Ratio 33.7 H, Glucose 191 H, Calcium 9.3, Phosphorus 6.5 H, Magnesium 2.5 H 04/18/25 06:38: POC Glucose 176 H 04/18/25 11:01: POC Glucose 181 H Micro: Microbiology 04/18/25 10:00 Urine Catheter - Metzger Legionella Antigen - Final 04/18/25 10:00 Urine Catheter - Metzegr Streptococcus pneumoniae Antigen (M - Final 04/18/25 10:51 Mucosa - Nasopharyngeal Coronavirus COVID-19 PCR - Final 04/16/25 16:16 Sputum, Expectorated/Coughed Gram Stain - Final 04/16/25 16:16 Sputum, Expectorated/Coughed Respiratory Culture - Preliminary GNR lactose founding partner Cardiology Labs/Tests 04/18/25 05:35: WBC 13.8 H, RBC 4.45, Hgb 12.7, Hct 39.6, MCV 89.0, MCH 28.5, MCHC 32.1, Plt Count 347, MPV 9.9, Immature Gran % (Auto) 0.600, Neut % (Auto) 89.5 H, Lymph % (Auto) 3.5 L, [place] % (Auto) 6.3, Eos % (Auto) 0.0, Baso % (Auto) 0.1, Absolute Neuts (auto) 12.4 H, Nucleated RBC % 0, Sodium 140, Potassium 4.4, Chloride 100, Carbon Dioxide 24.2, Anion Gap 16 H, BUN 96 H, Creatinine 2.86 H, Est GFR (MDRD) Non-Af 16 L, BUN/Creatinine Ratio 33.7 H, Glucose 191 H, Calcium 9.3, Phosphorus 6.5 H, Magnesium 2.5 H Rhythm: EKG: ECHO: Stress Test: Cardiac Cath: PCI: CT Surgery: Holter monitor: EPS: PPM: CXR: Chest CT Scan: Radiography Diagnostic Testing: Radiology Impression Renal Ultrasound 04/17/25 11:48 IMPRESSION: No acute findings in the retroperitoneum. Reading Location: [facility]
[2025-04-18 14:57] LABS: International Normalized Ratio 2.5; Prothrombin Time (Protime)PT. 27.9 SECONDS (11.7-14.9)
[2025-04-18 15:20] LABS: Partial Thromboplast Time 36.8 Seconds (24.1-36.2)
[2025-04-18] MEDS: HEPARIN/D5w 25,000 UNITS 25,000 UNITS/250 ML IV.SOLN. 10 UNITS CONT INF (15:31)
--- NOTE | 2025-04-18 15:35 | CASEMGMT ---
BASIL CM to pt room at this time to follow up on DC planning. Pt is scheduled for a thoracentesis tomorrow. Pt is currently requiring additional oxygen and may qualify for home oxygen use. A verbal list of local in-network DME companies were provided to the pt at this time. Pt prefers [employer].?Pt denies further needs at this time. CM to follow.
[2025-04-18 16:34] LABS: Protein, Urine (Random) 76.7 mg/dL (0.0-12.0); Protein:Creat Ratio 965 mg/g CRE (0-200)
[2025-04-18 17:04] LABS: Bedside Glucose 153 mg/dL (74-106)
[2025-04-18] MEDS: Atorvastatin Calcium 10 MG Tablet PO (21:36)
[2025-04-18] MEDS: Gabapentin 300 MG Capsule PO (21:42)
[2025-04-18] MEDS: Acetaminophen 325 MG Tablet 650 MG PO (21:42)
[2025-04-18 22:10] LABS: Partial Thromboplast Time 101.3 Seconds (24.1-36.2)
[2025-04-18 22:13] LABS: Bedside Glucose 167 mg/dL (74-106)
[2025-04-19] VITALS (16 sets, daily range): BP systolic 75–125; BP diastolic 42–91; PULSE 77–102; RESP 16–19; TEMP 36.6–37.1; O2SAT 93–99
[2025-04-19 06:33] LABS: Absolute Lymphocyte Count 0.71 X10^3/uL (0.83-4.51); Absolute Neutrophil Count 11.1 X10^3/uL (2.0-7.7); Basophil# 0.02 X10^3/uL; Basophil% 0.2 % (0-1); Eosinophil# 0.02 X10^3/uL; Eosinophils% 0.2 % (0-5); Hematocrit 39.6 % (37-47); Hemoglobin 12.4 g/dL (12.0-15.0); Lymphocyte # 0.71 X10^3/ul (0.83-4.51); Lymphocyte % 5.6 % (19-41); Mean Corp Hgb Conc 31.3 g/dL (32-36); Mean Corpuscular Volume 89.4 fL (81-99); Monocyte# 0.69 X10^3/uL; Monocyte% 5.5 % (0-10); NRBC Flagged by Analyzer 0 % (0-5); Neutrophil # 11.05 X10^3/uL (2.7-7.7); Neutrophil % 87.7 % (47-70); Platelet Count 373 K/mm3 (150-450); RBC Distribution Width CV 16.7 % (11.6-14.6); RBC Distribution Width SD 54.2 fl (35.1-43.9); Red Blood Count 4.43 M/mm3 (4.2-5.4); White Blood Count 12.6 K/mm3 (4.4-11.0)
[2025-04-19] MEDS: Levothyroxine 100 MCG Tablet PO (07:00)
[2025-04-19 07:22] LABS: Bedside Glucose 154 mg/dL (74-106)
[2025-04-19 08:10] LABS: Anion Gap 14 (5-15); BUN 108 mg/dL (4-19); BUN/Creat Ratio 36.9 RATIO (10-20); Calcium,Total 9.1 mg/dL (7.6-11.0); Carbon Dioxide 23.6 mmol/L (21.0-32.0); Chloride 98 mmol/L (98-108); Creatinine, Serum 2.93 mg/dL (0.70-1.20); EST Glomerular Filtration Rate 15 (>60); Estimated Creatinine Clearance 14.44 ml/min (50-250); Glucose 169 mg/dL (70-99); Potassium 4.1 mmol/L (3.3-5.1); Sodium Level 136 mmol/L (133-145)
--- NOTE | 2025-04-19 09:18 | PCM.PN.HOSP ---
Reason for Visit Reason for Visit: Diagnoses Unspecified atrial fibrillation (04/16/25) Unspecified diastolic (congestive) heart failure (04/16/25) Pleural effusion, not elsewhere classified (04/16/25) Acute kidney failure, unspecified (04/16/25) Personal history of other endocrine, nutritional and metabolic disease (04/16/25) Subjective Subjective Patient seen sputum cultures came back positive for Klebsiella pneumonia. Scheduled to undergo ultrasound-guided thoracocentesis. Patient kidney function continues to worsen with BUN of 108 and creatinine of 2.93 Objective Data Objective Data Vital Signs: Vital Signs Temp Pulse Resp BP Pulse Ox O2 Del Method O2 Flow Rate 98.1 F 94 19 H 104/57 L 95 Nasal Cannula 2 04/19/25 08:31 04/19/25 08:31 04/19/25 08:31 04/19/25 08:31 04/19/25 08:31 04/19/25 08:43 04/19/25 08:31 FiO2 40 04/17/25 06:07 Oxygen Flow Rate (L/min) 2 Oxygen Delivery Method Nasal Cannula Weight: 91.2 kg Body Mass Index (BMI) 37.9 Intake & Output: Intake and Output for Last 24 Hours 04/17/25 04/18/25 04/19/25 23:59 23:59 23:59 Intake Total 709.27 / 719.27 990.42 / 1190.42 330 / 330 Output Total 525 / 525 695 / 1020 675 / 675 Balance 184.27 / 194.27 295.42 / 170.42 -345 / -345 Lab / Micro Data 04/19/25 06:20 04/19/25 06:20 Labs: Laboratory Results - last 24 hr 04/18/25 11:01: POC Glucose 181 H 04/18/25 14:10: PT 27.9 H, INR 2.5 04/18/25 14:30: APTT 36.8 H 04/18/25 15:35: U Random Total Protein 76.7 H, Urine Creatinine 79.50, Protein/Creatinin Ratio 965 H 04/18/25 16:41: POC Glucose 153 H 04/18/25 21:15: APTT 101.3 H* 04/18/25 21:45: POC Glucose 167 H 04/19/25 06:20: WBC 12.6 H, RBC 4.43, Hgb 12.4, Hct 39.6, MCV 89.4, MCH 28.0, MCHC 31.3 L, RDW Std Deviation 54.2 H, RDW Coeff of Marcial 16.7 H, Plt Count 373, MPV 10.0, Immature Gran % (Auto) 0.800, Neut % (Auto) 87.7 H, Lymph % (Auto) 5.6 L, [place] % (Auto) 5.5, Eos % (Auto) 0.2, Baso % (Auto) 0.2, Absolute Neuts (auto) 11.1 H, Absolute Lymphs (auto) 0.71 L, Nucleated RBC % 0, Sodium 136, Potassium 4.1, Chloride 98, Carbon Dioxide 23.6, Anion Gap 14, BUN 108 H*, Creatinine 2.93 H, Estim Creat Clear Calc 14.44 L, Est GFR (MDRD) Non-Af 15 L, BUN/Creatinine Ratio 36.9 H, Glucose 169 H, Calcium 9.1, WILBUR-1 Antibody TNP, Sm (Schmitz) Antibody TNP, CEREAL POPPER Antibody TNP, Scl-70 Scleroderma Ab TNP, Antichromatin Antibodies TNP, Centromere B Antibody TNP 04/19/25 06:53: POC Glucose 154 H Micro: Microbiology 04/16/25 16:16 Sputum, Expectorated/Coughed Gram Stain - Final 04/16/25 16:16 Sputum, Expectorated/Coughed Respiratory Culture - Preliminary Klebsiella pneumoniae sp pneum 04/18/25 10:51 Mucosa - Nasopharyngeal Respiratory Panel (PCR) - Final 04/18/25 10:00 Urine Catheter - Metzger Legionella Antigen - Final 04/18/25 10:00 Urine Catheter - Metzger Streptococcus pneumoniae Antigen (M - Final 04/18/25 10:51 Mucosa - Nasopharyngeal Coronavirus COVID-19 PCR - Final Physical Exam Narrative GENERAL: Appears fatigued and ill looking HEENT: Atraumatic; normocephalic EYES; Anicteric, Normal Conjunctiva NECK; supple, normal thyroid, RESPIRATORY: Diminished to auscultation, bibasilar Rales CARDIOVASCULAR: Irregular S1-S2 but rate controlled GI: soft, normoactive bowel sounds, : No Renal angle tenderness; EXTREMITIES: Bipedal edema, no clubbing, MUSCULOSKELETAL: no muscle wasting NEURO: Awake; no lateralizing signs. SKIN: No Rash PSYCH; Flat affect Assessment & Plan Assessment/Plan (1) (HFpEF) heart failure with preserved ejection fraction: (2) Pleural effusion: (3) FERMÍN (acute kidney injury): (4) Atrial fibrillation with rapid ventricular response: PLAN: Plan Patient is an 84-year-old lady with past medical history significant for paroxysmal A-fib who presented with progressive shortness of breath and assessment of acute congestive heart failure made admitted to monitored bed for further management 1. Acute on chronic congestive heart failure with preserved ejection fraction ? Patient admitted to monitored bed treatment initiated with strict input and output, daily weights, fluid restriction as well as diuretic therapy with furosemide drip. As part of patient's management 2D echo was ordered on admission demonstrated ejection fraction of 55-60 % and Severe biatrial enlargement. ? Patient is on furosemide drip however response to therapy not impressive. Consult placed to cardiology. Family request ? 04/19/2025; patient is on furosemide drip however appears not to be responding. Creatinine and BUN worsening. 2. Large right-sided pleural effusion ? CT of the chest obtained did show Large right pleural effusion with compressive atelectasis. Small left pleural effusion with compressive atelectasis.. An order was given for patient to undergo ultrasound-guided thoracocentesis as part of subsequent evaluation ordered pleural fluid studies including LDH WBC, and glucose levels ? 04/18/2025; patient ultrasound guided thoracocentesis centesis scheduled for 04/19/2025. ? 04/19/2025; patient scheduled to undergo ultrasound-guided paracentesis 3. Acute kidney injury ? Suspected to be secondary to hypoperfusion from patient congestive heart failure. Creatinine from 01/10/2025 was 1.07 creatinine on admission was 2.31. Patient kidney function actually did worsen with diuresis with creatinine bumping up to 2.62. Subsequently requested for kidney ultrasound and nephrology consultation obtained ? 04/18/2025; patient kidney function did worsen. Subsequently requested nephrology consultation as well as ordered kidney ultrasound. Repeat BMP ordered in a.m. for follow-up ? 04/19/2025; Patient kidney function continues to worsen with BUN of 108 and creatinine of 2.93. Consult has been placed to nephrology today prior renal ultrasound obtained came back unremarkable. Repeat BMP ordered for a.m. 4. Paroxysmal atrial fibrillation ? Patient went into A-fib with RVR necessitating patient being started on Cardizem drip which is currently being titrated to keep heart rate less than 100 5. Acute hypoxia ? Secondary to congestive heart failure and large right sided pleural effusion. Patient was placed on supplemental oxygen in addition to bronchodilator treatment. ? 04/18/2025; patient to be assessed for home oxygen prior to this 6. Diabetes mellitus type 2 ? Patient is on metformin held on admission placed on Accu-Cheks AC and at bedtime with sliding scale coverage 7. Essential hypertension ? Patient is on 40 mg of lisinopril held given patient worsening kidney function 8. Hypothyroidism ? Patient is on levothyroxine home dose continued 9. Class II obesity ? Complicating care weight loss advised 10. Degenerative joint disease ? Pain meds as needed 11. Dyslipidemia ?Patient is on statin therapy, continued at home dose 12. DVT prophylaxis ? Patient already on systemic anticoagulation with apixaban 13. Bilateral lower extremity venous insufficiency Manage patient to follow-up with PCP for outpatient management 14. Suspected pneumonia ? Patient has elevated WBC count with a left shift. CT of the chest obtained the day prior demonstrated infiltrate at the bases of both lungs. Patient subsequently started on ceftriaxone and azithromycin. Also did send for sputum and blood culture ? 04/19/2025; sputum cultures came out positive for Klebsiella pneumonia remains on appropriate antibiotic therapy 15. Physical deconditioning ? Requested for PT OT eval and addiction social worker to assist with discharge planning Time spent in the patient's overall evaluation,decision-making process, review of diagnostic data, adjustment of management, discussion with other providers, nursing nursing, ancillary staff as well as patient's family involved in patient's care documentation, 50 Minutes Charges/Coding Visit Charges Inpatient E&M: 23378 [facility] Hosp L3
[2025-04-19 09:33] LABS: Partial Thromboplast Time 54.9 Seconds (24.1-36.2)
[2025-04-19 09:43] LABS: International Normalized Ratio 2.1; Prothrombin Time (Protime)PT. 23.8 SECONDS (11.7-14.9)
[2025-04-19] MEDS: dilTIAZem CD 240 MG Capsule PO (11:15)
[2025-04-19] MEDS: Ondansetron 4 MG/2 ML Vial IV (11:16)
[2025-04-19] MEDS: guaiFENesin 600 MG Tablet PO ×2 (11:16→21:49)
[2025-04-19] MEDS: Azithromycin 500 MG in 0.9% Normal Saline (250mL Bag) 250 ML 255 MG IV (11:20)
[2025-04-19] MEDS: Metoprolol Tartrate 25 MG Tablet 75 MG PO ×2 (11:56→21:50)
[2025-04-19] MEDS: Ceftriaxone 2 GM in 0.9% Normal Saline (50mL MB+) 50 ML IV (11:57)
--- NOTE | 2025-04-19 11:59 | PCM.PN.REN ---
Subjective Subjective urine output is only about 670 cc. breathing is still not great. for pleural tap today. Objective Data Objective Data Vital Signs: Vital Signs Temp Pulse Resp BP Pulse Ox O2 Del Method O2 Flow Rate 98.1 F 94 19 H 104/57 L 95 Nasal Cannula 2 04/19/25 08:31 04/19/25 11:56 04/19/25 08:31 04/19/25 08:31 04/19/25 08:31 04/19/25 08:43 04/19/25 08:31 FiO2 40 04/17/25 06:07 Oxygen Flow Rate (L/min) 2 Oxygen Delivery Method Nasal Cannula Weight: 91.2 kg Body Mass Index (BMI) 37.9 Intake & Output: Intake and Output for Last 24 Hours 04/17/25 04/18/25 04/19/25 23:59 23:59 23:59 Intake Total 709.27 / 719.27 990.42 / 1190.42 330 / 330 Output Total 525 / 525 695 / 1020 675 / 675 Balance 184.27 / 194.27 295.42 / 170.42 -345 / -345 Lab / Micro Data 04/19/25 06:20 04/19/25 06:20 Labs: Laboratory Results - last 24 hr 04/18/25 14:10: PT 27.9 H, INR 2.5 04/18/25 14:30: APTT 36.8 H 04/18/25 15:35: U Random Total Protein 76.7 H, Urine Creatinine 79.50, Protein/Creatinin Ratio 965 H 04/18/25 16:41: POC Glucose 153 H 04/18/25 21:15: APTT 101.3 H* 04/18/25 21:45: POC Glucose 167 H 04/19/25 06:20: WBC 12.6 H, RBC 4.43, Hgb 12.4, Hct 39.6, MCV 89.4, MCH 28.0, MCHC 31.3 L, RDW Std Deviation 54.2 H, RDW Coeff of Marcial 16.7 H, Plt Count 373, MPV 10.0, Immature Gran % (Auto) 0.800, Neut % (Auto) 87.7 H, Lymph % (Auto) 5.6 L, [place] % (Auto) 5.5, Eos % (Auto) 0.2, Baso % (Auto) 0.2, Absolute Neuts (auto) 11.1 H, Absolute Lymphs (auto) 0.71 L, Nucleated RBC % 0, PT 23.8 H, INR 2.1, APTT 54.9 H, Sodium 136, Potassium 4.1, Chloride 98, Carbon Dioxide 23.6, Anion Gap 14, BUN 108 H*, Creatinine 2.93 H, Estim Creat Clear Calc 14.44 L, Est GFR (MDRD) Non-Af 15 L, BUN/Creatinine Ratio 36.9 H, Glucose 169 H, Calcium 9.1, WILBUR-1 Antibody TNP, Sm (Schmitz) Antibody TNP, COMPUTER SOFTWARE ENGINEER Antibody TNP, Scl-70 Scleroderma Ab TNP, Antichromatin Antibodies TNP, Centromere B Antibody TNP 04/19/25 06:53: POC Glucose 154 H Micro: Microbiology 04/16/25 16:16 Sputum, Expectorated/Coughed Gram Stain - Final 04/16/25 16:16 Sputum, Expectorated/Coughed Respiratory Culture - Preliminary Klebsiella pneumoniae sp pneum 04/18/25 10:51 Mucosa - Nasopharyngeal Respiratory Panel (PCR) - Final 04/18/25 10:00 Urine Catheter - Ray Legionella Antigen - Final 04/18/25 10:00 Urine Catheter - Ray Streptococcus pneumoniae Antigen (M - Final 04/18/25 10:51 Mucosa - Nasopharyngeal Coronavirus COVID-19 PCR - Final Physical Exam Narrative Alert awake oriented x 3 no obvious distress no pallor no icterus no JVD s1s2 no murmurs lungs clear abdomen soft no organomegaly +++ edema no cyanosis ray + Assessment & Plan Assessment/Plan (1) FERMÍN (acute kidney injury): PLAN: Baseline creatinine is around 1.1. Previous admission creatinine was close to baseline. This admission creatinine is around 2.6-2.8. Renal ultrasound without any hydronephrosis. Urine analysis shows 2+ protein. HbA1c 6.9. Urine PCR 0.9 gm She has significant volume overload in the form of lower extremity edema, repeated pleural effusions. Surprisingly echocardiogram showed ejection fraction normal, presumably this is diastolic dysfunction. However BNP last admission was only around 230. This admission proBNP is only twice the normal limits. Pleural tap today Due to proteinuria, renal failure, repeated pleural effusions, sent serology to rule out autoimmune conditions. Discussed with daughter and . not great response to lasix drip and renal function worsening next step would be dialysis for volume removal was ok with it. patient says she would like to wait until pleural tap and see how she feels after. she was not opposed to dialysis however explained dialysis procedure etc. while it could be temporary since its acute its hard to predict all questions answered they are agreeable with continuing lasix drip and adding metolazone
[2025-04-19 12:07] LABS: Bedside Glucose 146 mg/dL (74-106)
--- NOTE | 2025-04-19 13:00 | RAD_ITS ---
EXAM: AP inspiration expiration views. CLINICAL HISTORY: Status post right thoracentesis COMPARISON: None TECHNIQUE: AP inspiration expiration views were obtained. There is no evidence of pneumothorax following the right thoracentesis. FINDINGS: No evidence of pneumothorax following the right thoracentesis. RAD/Chest Insp/Exp 2 View IMPRESSION: No evidence of pneumothorax following the right thoracentesis. Reading Location: [facility]
[2025-04-19] MEDS: metOLazone 5 MG Tablet PO (13:46)
[2025-04-19] MEDS: Lidocaine 2% (20 ml mdv) 20 ML Vial INFILT (14:15)
--- NOTE | 2025-04-19 14:17 | FLU_PTH ---
PATIENT: JESS JACKSON LOC: [facility] U#:[id number] AGE/SX: 84/F ROOM: [facility] RE04/16/[address]: Dr. Amado Bailey MD : [id number] BED: 1 DIS: 04/26/2025 SPEC #: [id number] RECD: 04/19/25 14:33 STATUS: YULY REQ #: [id number] NAA: 04/19/25 14:[address]: Amado Bailey DEPT: CYTOLOGY RECD BY: Man Preciado ENTERED: 04/22/25 08:52 SP TYPE: Fluid OTHR DR: DO Dr. Edward Bhat MD Dr. Jayaprakas Dasari, MD Dr. Steven A Wanek, MD Eric W Richards Tissues: A - THORACIC FLUID Procedures: Immunohistochemical Stains Special Stain Group II Surgery Specimen Level IV Cytospin Fluid IHC Stain ADDITIONAL HEADER OPERATION: Ultrasound guided thoracentesis - right PRE-OP DIAGNOSIS: Large pleural effusion TISSUE SUBMITTED: A- Thoracentesis fluid for cytology DIAGNOSIS CYTOLOGY A. Right pleural effusion, thoracentesis (cytospin, cellblock): * No malignant cells identified - see note. * Note: Many CD68+ macrophages and Calretinin+ mesothelial cells are present. E-cadherin is essentially negative. CYTOLOGY STUDY Slides are reviewed. All matched controls reacted appropriately. These tests were developed and their performance characteristics determined by [facility]. They may not have been cleared or approved by the U.S. Food and Drug Administration. The FDA has determined that such clearance or approval is not necessary.? The above immunohistochemical/dualISH?markers are reviewed by the Pathologist. CYTOLOGY GROSS A. Received is 90 ml of cloudy-red fluid labeled with the patient's name and and designated per the requisition as Thoracentesis fluid. Submitted for cytology cytospin and cell block preparation. Mr 04/22/2025 CPT: 28472, 22350, 84001, 51736h8
[2025-04-19 17:08] LABS: LDH,Body Fluid 201 Units/L (Not Establ.); Protein, Body Fluid 3.9 g/dL (Not Establ.)
[2025-04-19 17:10] LABS: Body Fluid Mononuclear WBC # 0.665 10^3/uL; Body Fluid Mononuclear WBC % 77.4 %; Body Fluid Polynuclear WBC # 0.194 10^3/uL; Body Fluid Polynuclear WBC % 22.6 %; Body Fluid Total Cells Counted 0.949 10^3/ul; Red Cell Count/Body Fluid 0.034 10^6/ul; White Blood Count/Body Fluid 0.859 10^3/uL
[2025-04-19] MEDS: Insulin Lispro 100 UNIT/ML INSULN.PEN SC (18:06)
[2025-04-19 18:40] LABS: Bedside Glucose 179 mg/dL (74-106)
[2025-04-19 18:45] LABS: Glucose, Body Fluid 173 mg/dL (Not Establ.)
[2025-04-19] MEDS: APIXABAN 2.5 MG TABLET (WCH) PO (21:47)
[2025-04-19] MEDS: Atorvastatin Calcium 10 MG Tablet PO (21:48)
[2025-04-19] MEDS: Pentoxifylline 400 MG Tablet PO (21:49)
[2025-04-19] MEDS: Gabapentin 300 MG Capsule PO (22:05)
[2025-04-19 22:43] LABS: Bedside Glucose 154 mg/dL (74-106)
[2025-04-20] VITALS (33 sets, daily range): BP systolic 74–143; BP diastolic 45–100; PULSE 91–129; RESP 14–28; TEMP 36.8–37.1; O2SAT 84–100; BMI 37.4
[2025-04-20 01:23] LABS: Appearance/Body Fluid TURBID; Auto B Fluid Analyzer BKGD Ct COUNTS W/IN LIMITS (W/IN LIMITS); Color/Body Fluid RED; Source- Body Fluid THORACENTESIS
[2025-04-20 01:24] LABS: Body Fluid QC Type(s) BF1Q
[2025-04-20 01:43] LABS: Lymphocytes 20 %; Macrophages 28 %; Monocytes 28 %; Neutrophil (Segs) 24 %
[2025-04-20] MEDS: Levothyroxine 100 MCG Tablet PO (05:45)
[2025-04-20] MEDS: Pentoxifylline 400 MG Tablet PO ×3 (05:45→21:35)
[2025-04-20 06:03] LABS: Absolute Lymphocyte Count 0.75 X10^3/uL (0.83-4.51); Absolute Neutrophil Count 8.4 X10^3/uL (2.0-7.7); Basophil# 0.01 X10^3/uL; Basophil% 0.1 % (0-1); Eosinophil# 0.03 X10^3/uL; Eosinophils% 0.3 % (0-5); Hematocrit 34.7 % (37-47); Hemoglobin 10.9 g/dL (12.0-15.0); Lymphocyte # 0.75 X10^3/ul (0.83-4.51); Lymphocyte % 7.6 % (19-41); Mean Corp Hgb Conc 31.4 g/dL (32-36); Mean Corpuscular Hgb 28.2 pg (27.0-32.0); Mean Corpuscular Volume 89.7 fL (81-99); Mean Platelet Vol. 9.7 fl (6.2-12.0); Monocyte# 0.71 X10^3/uL; Monocyte% 7.2 % (0-10); NRBC Flagged by Analyzer 0 % (0-5); Neutrophil # 8.38 X10^3/uL (2.7-7.7); Neutrophil % 84.3 % (47-70); Platelet Count 278 K/mm3 (150-450); RBC Distribution Width CV 16.5 % (11.6-14.6); RBC Distribution Width SD 53.6 fl (35.1-43.9); Red Blood Count 3.87 M/mm3 (4.2-5.4); White Blood Count 9.9 K/mm3 (4.4-11.0)
[2025-04-20] MEDS: Insulin Lispro 100 UNIT/ML INSULN.PEN SC ×3 (06:13→21:38)
[2025-04-20 06:38] LABS: Bedside Glucose 172 mg/dL (74-106)
--- NOTE | 2025-04-20 06:50 | RAD_ITS ---
PROCEDURE: CHEST 1 VIEW (PORTABLE) 04/20/2025 REASON FOR EXAM: ACUTE HYPOXIA TECHNIQUE: Frontal view of the chest. COMPARISON: 04/19/2025 FINDINGS: Since the post thoracentesis chest x-ray there appears to be now a reaccumulation of a moderate right pleural effusion again with adjacent right base passive collapse. No pneumothorax identified. Similar appearance of possible small left effusion and basilar atelectasis, passive collapse. Cardiac silhouette again appears enlarged for technique. Dense calcification of the mitral annulus again noted. RAD/Chest 1 View (Portable) IMPRESSION: Since the post thoracentesis chest x-ray there appears to be now a reaccumulati on of a moderate right pleural effusion again with adjacent right base passive collapse. No pneumothorax identified. Similar appearance of possible small left effusion and basilar atelectasis, pas sive collapse. Reading Location: [id number]
--- NOTE | 2025-04-20 07:52 | NURSING ---
0550:Pt was awake and alert in room. started with a coughing spell and expectortating. BP dropped. Desat to 86. O2 increased to 10L and O2 increased to 89. pt was boosted in bed. Lung sounds with Anterior Left clear upper dim lower/ Right changed to dim all over when previously clear. Pt had intermittent desat with coughing sometimes recovering quickly; MD notified; xray ordered; RT came to bedside;0650 placed on Airvo 45L and 60%. See VSA for BP and O2 changes.
[2025-04-20 08:12] LABS: Anion Gap 14 (5-15); BUN 116 mg/dL (4-19); BUN/Creat Ratio 42.6 RATIO (10-20); Calcium,Total 8.7 mg/dL (7.6-11.0); Carbon Dioxide 23.8 mmol/L (21.0-32.0); Chloride 99 mmol/L (98-108); Creatinine, Serum 2.72 mg/dL (0.70-1.20); EST Glomerular Filtration Rate 17 (>60); Estimated Creatinine Clearance 15.43 ml/min (50-250); Glucose 175 mg/dL (70-99); Sodium Level 137 mmol/L (133-145)
--- NOTE | 2025-04-20 09:50 | PCM.PN.HOSP ---
Reason for Visit Reason for Visit: Diagnoses Unspecified atrial fibrillation (04/16/25) Unspecified diastolic (congestive) heart failure (04/16/25) Pleural effusion, not elsewhere classified (04/16/25) Acute kidney failure, unspecified (04/16/25) Personal history of other endocrine, nutritional and metabolic disease (04/16/25) Subjective Subjective Patient underwent ultrasound-guided thoracocentesis on 04/19/2025 with 1350 mL of blood-tinged fluid aspirated sample sent to the lab for analysis.Patient was noted to be dyspneic earlier in the early hours of this a.m. chest x-ray subsequently ordered demonstrated reaccumulation of the right-sided pleural effusion. Patient seen complains of feeling weak. Patient blood pressure on the low side.. Did order IV fluid resuscitation. Order given for patient to be transferred to the intensive care unit. Also had a discussion with patient and the family regarding possible dialysis patient is okay with temporary dialysis. Subsequently placed an order to general surgery for the temporary dialysis catheter placement Objective Data Objective Data Vital Signs: Vital Signs Temp Pulse Resp BP Pulse Ox O2 Del Method O2 Flow Rate 98.7 F 110 H 21 H 78/52 L 100 Airvo 40 04/20/25 04:08 04/20/25 07:24 04/20/25 07:24 04/20/25 07:00 04/20/25 08:20 04/20/25 08:20 04/20/25 07:24 FiO2 60 04/20/25 07:24 Oxygen Flow Rate (L/min) 40 Oxygen Delivery Method Airvo Weight: 89.9 kg Body Mass Index (BMI) 37.4 Intake & Output: Intake and Output for Last 24 Hours 04/18/25 04/19/25 04/20/25 23:59 23:59 23:59 Intake Total 990.42 / 1190.42 1592.2 / 1592.2 610 / 610 Output Total 695 / 1020 2865 / 2865 775 / 775 Balance 295.42 / 170.42 -1272.8 / -1272.8 -165 / -165 Lab / Micro Data 04/20/25 05:30 04/20/25 05:30 Labs: Laboratory Results - last 24 hr 04/18/25 14:17: Fluid Glucose 173, Fluid Total Protein 3.9, Fluid LDH 201 04/19/25 11:38: POC Glucose 146 H 04/19/25 14:17: Fluid Source THORACENTESIS, Fluid Color RED, Fluid Appearance TURBID, Fluid WBC 0.859, Fluid RBC 0.034, Fluid Tot Cell Count 0.949 H, Fld Polynuclear WBCs # 0.194, Fld Polynuclear WBCs % 22.6, Fluid Mononuclear WBCs 0.665, Fld Mononuclear WBCs % 77.4, Fluid Neutrophils 24, Fluid Lymphocytes 20, Fluid Monocytes 28, Fluid Macrophages 28, Fl Pathologist Comment May follow, Fluid Comment 2 SEE COMMENT 04/19/25 18:04: POC Glucose 179 H 04/19/25 21:46: POC Glucose 154 H 04/20/25 05:30: WBC 9.9, RBC 3.87 L, Hgb 10.9 L, Hct 34.7 L, MCV 89.7, MCH 28.2, MCHC 31.4 L, RDW Std Deviation 53.6 H, RDW Coeff of Marcial 16.5 H, Plt Count 278, MPV 9.7, Immature Gran % (Auto) 0.500, Neut % (Auto) 84.3 H, Lymph % (Auto) 7.6 L, Morton % (Auto) 7.2, Eos % (Auto) 0.3, Baso % (Auto) 0.1, Absolute Neuts (auto) 8.4 H, Absolute Lymphs (auto) 0.75 L, Nucleated RBC % 0, Sodium 137, Potassium 4.0, Chloride 99, Carbon Dioxide 23.8, Anion Gap 14, BUN 116 H*, Creatinine 2.72 H, Estim Creat Clear Calc 15.43 L, Est GFR (MDRD) Non-Af 17 L, BUN/Creatinine Ratio 42.6 H, Glucose 175 H, Calcium 8.7 04/20/25 06:10: POC Glucose 172 H Micro: Microbiology 04/16/25 16:16 Sputum, Expectorated/Coughed Gram Stain - Final 04/16/25 16:16 Sputum, Expectorated/Coughed Respiratory Culture - Preliminary Klebsiella pneumoniae sp pneum 04/18/25 10:51 Mucosa - Nasopharyngeal Respiratory Panel (PCR) - Final 04/18/25 10:00 Urine Catheter - Metzger Legionella Antigen - Final 04/18/25 10:00 Urine Catheter - Metzger Streptococcus pneumoniae Antigen (M - Final 04/18/25 10:51 Mucosa - Nasopharyngeal Coronavirus COVID-19 PCR - Final Radiography Diagnostic Testing: Radiology Impression Thoracentesis Ultrasound 04/17/25 11:48 IMPRESSION: Successful ultrasound-guided right thoracentesis. No immediate complication noted. Reading Location: [place] [address] Chest X-Ray 04/19/25 13:00 IMPRESSION: No evidence of pneumothorax following the right thoracentesis. Reading Location: [place] [address] Chest X-Ray 04/20/25 06:50 IMPRESSION: Since the post thoracentesis chest x-ray there appears to be now a reaccumulation of a moderate right pleural effusion again with adjacent right base passive collapse. No pneumothorax identified. Similar appearance of possible small left effusion and basilar atelectasis, passive collapse. Reading Location: [facility] Physical Exam Narrative GENERAL: Appears fatigued and ill looking HEENT: Atraumatic; normocephalic EYES; Anicteric, Normal Conjunctiva NECK; supple, normal thyroid, RESPIRATORY: Diminished to auscultation, bibasilar Rales CARDIOVASCULAR: Irregular S1-S2 but rate controlled GI: soft, normoactive bowel sounds, : No Renal angle tenderness; EXTREMITIES: Bipedal edema, no clubbing, MUSCULOSKELETAL: no muscle wasting NEURO: Awake; no lateralizing signs. SKIN: No Rash PSYCH; Flat affect Assessment & Plan Assessment/Plan (1) (HFpEF) heart failure with preserved ejection fraction: (2) Pleural effusion: (3) FERMÍN (acute kidney injury): (4) Atrial fibrillation with rapid ventricular response: PLAN: Plan Patient is an 84-year-old lady with past medical history significant for paroxysmal A-fib who presented with progressive shortness of breath and assessment of acute congestive heart failure made admitted to monitored bed for further management 1. Acute on chronic congestive heart failure with preserved ejection fraction ? Patient admitted to monitored bed treatment initiated with strict input and output, daily weights, fluid restriction as well as diuretic therapy with furosemide drip. As part of patient's management 2D echo was ordered on admission demonstrated ejection fraction of 55-60 % and Severe biatrial enlargement. ? Patient is on furosemide drip however response to therapy not impressive. Consult placed to cardiology. Family request ? 04/19/2025; patient is on furosemide drip however appears not to be responding. Creatinine and BUN worsening. ? 04/20/2025; patient BUN and creatinine continues to worsen. Lasix drip held given patient being relatively hypotensive. 2. Large right-sided pleural effusion ? CT of the chest obtained did show Large right pleural effusion with compressive atelectasis. Small left pleural effusion with compressive atelectasis.. An order was given for patient to undergo ultrasound-guided thoracocentesis as part of subsequent evaluation ordered pleural fluid studies including LDH WBC, and glucose levels ? 04/18/2025; patient ultrasound guided thoracocentesis centesis scheduled for 04/19/2025. ? 04/19/2025; patient scheduled to undergo ultrasound-guided paracentesis ? 04/20/2025: Patient underwent ultrasound-guided thoracocentesis on 04/19/2025 with 1350 mL of blood-tinged fluid aspirated sample sent to the lab for analysis.Patient was noted to be dyspneic earlier in the early hours of this a.m. patient placed on supplemental oxygen repeat x-ray ordered which did show reaccumulation of a moderate right pleural effusion again with adjacent right base passive collapse. No pneumothorax identified. Similar appearance of possible small left effusion and basilar atelectasis, passive collapse. 3. Acute kidney injury ? Suspected to be secondary to hypoperfusion from patient congestive heart failure. Creatinine from 01/10/2025 was 1.07 creatinine on admission was 2.31. Patient kidney function actually did worsen with diuresis with creatinine bumping up to 2.62. Subsequently requested for kidney ultrasound and nephrology consultation obtained ? 04/18/2025; patient kidney function did worsen. Subsequently requested nephrology consultation as well as ordered kidney ultrasound. Repeat BMP ordered in a.m. for follow-up ? 04/19/2025; Patient kidney function continues to worsen with BUN of 108 and creatinine of 2.93. Consult has been placed to nephrology today prior renal ultrasound obtained came back unremarkable. Repeat BMP ordered for a.m. ? 04/20/2025; patient kidney function continues to worsen. Family to decide if they want to proceed with temporary dialysis. Had a discussion with patient and son-in-law. Patient is agreeable to temporary dialysis catheter for now.. Consult subsequently placed to general surgery Case discussed with Dr. Michael De Luna 4. Paroxysmal atrial fibrillation ? Patient went into A-fib with RVR necessitating patient being started on Cardizem drip which is currently being titrated to keep heart rate less than 100 ? 04/20/2025 patient is on apixaban decision was made to hold in anticipation of possible temporary dialysis catheter placement 5. Acute hypoxia ? Secondary to congestive heart failure and large right sided pleural effusion. Patient was placed on supplemental oxygen in addition to bronchodilator treatment. ? 04/18/2025; patient to be assessed for home oxygen prior to this ? 04/20/2025; did ask patient about possible intubation if warranted. Patient is not show how she wants to proceed and wants to have a discussion with the family prior to making a decision 6. Hypotension ? 04/20/2025 patient diuretic therapy as well as antihypertensive and antiarrhythmic's?Cardizem and metoprolol held. Resuscitated with IV fluid. An order was given for patient to be transferred to the intensive care unit. Did place an order for PICC line and order written for norepinephrine if patient does not respond to IV fluid resuscitation 7. Essential hypertension ? Patient is on 40 mg of lisinopril held given patient worsening kidney function ? 04/20/2025; patient antihypertensives on hold given patient relatively low blood pressure 8. Hypothyroidism ? Patient is on levothyroxine home dose continued 9. Class II obesity ? Complicating care weight loss advised 10. Degenerative joint disease ? Pain meds as needed 11. Dyslipidemia ?Patient is on statin therapy, continued at home dose 12. Diabetes mellitus type 2 ? Patient is on metformin held on admission placed on Accu-Cheks AC and at bedtime with sliding scale coverage 13. Bilateral lower extremity venous insufficiency Manage patient to follow-up with PCP for outpatient management 14. Suspected pneumonia ? Patient has elevated WBC count with a left shift. CT of the chest obtained the day prior demonstrated infiltrate at the bases of both lungs. Patient subsequently started on ceftriaxone and azithromycin. Also did send for sputum and blood culture ? 04/19/2025; sputum cultures came out positive for Klebsiella pneumonia remains on appropriate antibiotic therapy 15. Physical deconditioning ? Requested for PT OT eval and social sciences department chair to assist with discharge planning 16. DVT prophylaxis ? Patient is on apixaban held prior to patient thoracocentesis resumed subsequently Critical time spent in the patient's overall evaluation,decision-making process, review of diagnostic data, adjustment of management, discussion with other providers, nursing nursing, ancillary staff as well as patient's family involved in patient's care documentation, 30 Minutes Charges/Coding Multi Select Codes Hospitalists' Procedures Procedures: 69771 Critical Care 1st Hr and 8[address]95 Critical Care Addl 30 Min
--- NOTE | 2025-04-20 10:05 | NURSING ---
Dr Bailey at bedside. Updated on patient's condition, VS/assessment/labs/imaging. MD discussed with family. MD to transfer patient to ICU.
[2025-04-20] MEDS: 0.9% Normal Saline (1000mL) 1,000 ML 250 ML IV ×4 (10:17→22:26)
[2025-04-20] MEDS: 0.9% Saline Lock 10 ML Syringe IV (10:17)
[2025-04-20] MEDS: Ceftriaxone 2 GM in 0.9% Normal Saline (50mL MB+) 50 ML IV (10:17)
--- NOTE | 2025-04-20 10:26 | NURSING ---
Report called to [facility].
--- NOTE | 2025-04-20 10:55 | CPS ---
Transported patient to ICU on 100% NRB, placed back on Airvo in ICU.
[2025-04-20] MEDS: Multivitamins,Ther W-Minerals Tablet 1 TABLET PO (13:05)
[2025-04-20] MEDS: guaiFENesin 600 MG Tablet PO ×2 (13:06→21:35)
[2025-04-20] MEDS: metOLazone 5 MG Tablet PO (13:10)
[2025-04-20 13:48] LABS: Bedside Glucose 167 mg/dL (74-106)
[2025-04-20] MEDS: Azithromycin 500 MG in 0.9% Normal Saline (250mL Bag) 250 ML 255 MG IV (14:18)
[2025-04-20 17:11] LABS: Bedside Glucose 150 mg/dL (74-106)
[2025-04-20] MEDS: Atorvastatin Calcium 10 MG Tablet PO (21:35)
[2025-04-20] MEDS: Gabapentin 300 MG Capsule PO (21:35)
[2025-04-20 22:10] LABS: Bedside Glucose 164 mg/dL (74-106)
[2025-04-21] VITALS (31 sets, daily range): BP systolic 96–154; BP diastolic 56–111; PULSE 96–152; RESP 18–27; TEMP 36.6–36.7; O2SAT 92–100; BMI 37.9
[2025-04-21] MEDS: 0.9% Normal Saline (1000mL) 1,000 ML 250 ML IV ×6 (02:26→23:38)
[2025-04-21] MEDS: Metoprolol Tartrate 50 MG Tablet PO (04:18)
[2025-04-21] MEDS: 0.9% Saline Lock 10 ML Syringe IV (06:09)
[2025-04-21] MEDS: Levothyroxine 100 MCG Tablet PO (06:11)
[2025-04-21 06:42] LABS: Absolute Lymphocyte Count 0.65 X10^3/uL (0.83-4.51); Absolute Neutrophil Count 7.2 X10^3/uL (2.0-7.7); Basophil# 0.01 X10^3/uL; Basophil% 0.1 % (0-1); Eosinophil# 0.06 X10^3/uL; Eosinophils% 0.7 % (0-5); Hematocrit 34.8 % (37-47); Hemoglobin 11.1 g/dL (12.0-15.0); Lymphocyte # 0.65 X10^3/ul (0.83-4.51); Lymphocyte % 7.5 % (19-41); Mean Corp Hgb Conc 31.9 g/dL (32-36); Mean Corpuscular Hgb 28.8 pg (27.0-32.0); Mean Corpuscular Volume 90.2 fL (81-99); Mean Platelet Vol. 9.7 fl (6.2-12.0); Monocyte# 0.74 X10^3/uL; Monocyte% 8.5 % (0-10); NRBC Flagged by Analyzer 0 % (0-5); Neutrophil # 7.19 X10^3/uL (2.7-7.7); Neutrophil % 82.9 % (47-70); Platelet Count 240 K/mm3 (150-450); RBC Distribution Width CV 16.4 % (11.6-14.6); RBC Distribution Width SD 54.4 fl (35.1-43.9); Red Blood Count 3.86 M/mm3 (4.2-5.4); White Blood Count 8.7 K/mm3 (4.4-11.0)
--- NOTE | 2025-04-21 07:09 | PCM.PN.HOSP ---
Reason for Visit Reason for Visit: Diagnoses Unspecified atrial fibrillation (04/16/25) Unspecified diastolic (congestive) heart failure (04/16/25) Pleural effusion, not elsewhere classified (04/16/25) Acute kidney failure, unspecified (04/16/25) Personal history of other endocrine, nutritional and metabolic disease (04/16/25) Subjective Subjective Patient was transferred to the intensive care unit after she became hypotensive. Patient did receive fluid resuscitation and an order was given for patient to be started on pressors. Patient patient blood pressure however did stabilize after arriving in the in the context of. Patient did have a coughing spell with resultant A-fib with RVR. Plan is to restart patient p.o. rate controlling agent. Patient creatinine slightly improved Objective Data Objective Data Vital Signs: Vital Signs Temp Pulse Resp BP Pulse Ox O2 Del Method O2 Flow Rate 98.3 F 114 H 24 H 134/83 H 95 Airvo 50 04/20/25 11:15 04/21/25 07:00 04/21/25 07:00 04/21/25 07:00 04/21/25 07:00 04/21/25 07:00 04/21/25 07:00 FiO2 45 04/21/25 07:00 Oxygen Flow Rate (L/min) 50 Oxygen Delivery Method Airvo Weight: 91.2 kg Body Mass Index (BMI) 37.9 Intake & Output: Intake and Output for Last 24 Hours 04/19/25 04/20/25 04/21/25 23:59 23:59 23:59 Intake Total 1592.2 / 1592.2 4155 / 4155 2120 / 2120 Output Total 2865 / 2865 2400 / 2400 1000 / 1000 Balance -1272.8 / -1272.8 1755 / 1755 1120 / 1120 Lab / Micro Data 04/21/25 06:17 04/21/25 06:17 Labs: Laboratory Results - last 24 hr 04/20/25 05:30: Sodium 137, Potassium 4.0, Chloride 99, Carbon Dioxide 23.8, Anion Gap 14, BUN 116 H*, Creatinine 2.72 H, Estim Creat Clear Calc 15.43 L, Est GFR (MDRD) Non-Af 17 L, BUN/Creatinine Ratio 42.6 H, Glucose 175 H, Calcium 8.7 04/20/25 13:28: POC Glucose 167 H 04/20/25 16:00: POC Glucose 150 H 04/20/25 21:38: POC Glucose 164 H 04/21/25 06:17: WBC 8.7, RBC 3.86 L, Hgb 11.1 L, Hct 34.8 L, MCV 90.2, MCH 28.8, MCHC 31.9 L, RDW Std Deviation 54.4 H, RDW Coeff of Marcial 16.4 H, Plt Count 240, MPV 9.7, Immature Gran % (Auto) 0.300, Neut % (Auto) 82.9 H, Lymph % (Auto) 7.5 L, Deuel % (Auto) 8.5, Eos % (Auto) 0.7, Baso % (Auto) 0.1, Absolute Neuts (auto) 7.2, Absolute Lymphs (auto) 0.65 L, Nucleated RBC % 0 Micro: Microbiology 04/18/25 11:00 Blood Culture (Wb) - Right Wrist Blood Culture - Preliminary No growth in 48 hours. 04/18/25 10:50 Blood Culture (Wb) - Arm Right Blood Culture - Preliminary No growth in 48 hours. 04/16/25 16:16 Sputum, Expectorated/Coughed Gram Stain - Final 04/16/25 16:16 Sputum, Expectorated/Coughed Respiratory Culture - Preliminary Klebsiella pneumoniae sp pneum 04/18/25 10:51 Mucosa - Nasopharyngeal Respiratory Panel (PCR) - Final 04/18/25 10:00 Urine Catheter - Metzger Legionella Antigen - Final 04/18/25 10:00 Urine Catheter - Metzger Streptococcus pneumoniae Antigen (M - Final 04/18/25 10:51 Mucosa - Nasopharyngeal Coronavirus COVID-19 PCR - Final Radiography Diagnostic Testing: Radiology Impression Chest X-Ray 04/20/25 06:50 IMPRESSION: Since the post thoracentesis chest x-ray there appears to be now a reaccumulation of a moderate right pleural effusion again with adjacent right base passive collapse. No pneumothorax identified. Similar appearance of possible small left effusion and basilar atelectasis, passive collapse. Reading Location: [facility] Physical Exam Narrative GENERAL: Appears fatigued patient on Airvo HEENT: Atraumatic; normocephalic EYES; Anicteric, Normal Conjunctiva NECK; supple, normal thyroid, RESPIRATORY: Diminished to auscultation, CARDIOVASCULAR: Irregular S1-S2 but rate controlled GI: soft, normoactive bowel sounds, : No Renal angle tenderness; EXTREMITIES: Bipedal edema, no clubbing, MUSCULOSKELETAL: no muscle wasting NEURO: Awake; no lateralizing signs. SKIN: No Rash PSYCH; Flat affect Assessment & Plan Assessment/Plan (1) (HFpEF) heart failure with preserved ejection fraction: (2) Pleural effusion: (3) FERMÍN (acute kidney injury): (4) Atrial fibrillation with rapid ventricular response: PLAN: Plan Patient is an 84-year-old lady with past medical history significant for paroxysmal A-fib who presented with progressive shortness of breath and assessment of acute congestive heart failure made admitted to monitored bed for further management 1. Acute on chronic congestive heart failure with preserved ejection fraction ? Patient admitted to monitored bed treatment initiated with strict input and output, daily weights, fluid restriction as well as diuretic therapy with furosemide drip. As part of patient's management 2D echo was ordered on admission demonstrated ejection fraction of 55-60 % and Severe biatrial enlargement. ? Patient is on furosemide drip however response to therapy not impressive. Consult placed to cardiology. Family request ? 04/19/2025; patient is on furosemide drip however appears not to be responding. Creatinine and BUN worsening. ? 04/20/2025; patient BUN and creatinine continues to worsen. Lasix drip held given patient being relatively hypotensive. ? 04/21/2025; patient furosemide discontinued started on Zaroxolyn 2. Large right-sided pleural effusion ? CT of the chest obtained did show Large right pleural effusion with compressive atelectasis. Small left pleural effusion with compressive atelectasis.. An order was given for patient to undergo ultrasound-guided thoracocentesis as part of subsequent evaluation ordered pleural fluid studies including LDH WBC, and glucose levels ? 04/18/2025; patient ultrasound guided thoracocentesis centesis scheduled for 04/19/2025. ? 04/19/2025; patient scheduled to undergo ultrasound-guided paracentesis ? 04/20/2025: Patient underwent ultrasound-guided thoracocentesis on 04/19/2025 with 1350 mL of blood-tinged fluid aspirated sample sent to the lab for analysis.Patient was noted to be dyspneic earlier in the early hours of this a.m. patient placed on supplemental oxygen repeat x-ray ordered which did show reaccumulation of a moderate right pleural effusion again with adjacent right base passive collapse. No pneumothorax identified. Similar appearance of possible small left effusion and basilar atelectasis, passive collapse. 3. Acute kidney injury ? Suspected to be secondary to hypoperfusion from patient congestive heart failure. Creatinine from 01/10/2025 was 1.07 creatinine on admission was 2.31. Patient kidney function actually did worsen with diuresis with creatinine bumping up to 2.62. Subsequently requested for kidney ultrasound and nephrology consultation obtained ? 04/18/2025; patient kidney function did worsen. Subsequently requested nephrology consultation as well as ordered kidney ultrasound. Repeat BMP ordered in a.m. for follow-up ? 04/19/2025; Patient kidney function continues to worsen with BUN of 108 and creatinine of 2.93. Consult has been placed to nephrology today prior renal ultrasound obtained came back unremarkable. Repeat BMP ordered for a.m. ? 04/20/2025; patient kidney function continues to worsen. Family to decide if they want to proceed with temporary dialysis. Had a discussion with patient and son-in-law. Patient is agreeable to temporary dialysis catheter for now.. Consult subsequently placed to general surgery Case discussed with Dr. Michael De Luna ? 04/21/2025; patient creatinine down to 1.98, BUN down to 95 4. Paroxysmal atrial fibrillation ? Patient went into A-fib with RVR necessitating patient being started on Cardizem drip which is currently being titrated to keep heart rate less than 100 ? 04/20/2025 patient is on apixaban decision was made to hold in anticipation of possible temporary dialysis catheter placement ? 04/21/2025; patient apixaban placed on hold. Started on p.o. Cardizem and metoprolol given her heart rates going up 5. Acute hypoxic respiratory failure ? Secondary to congestive heart failure and large right sided pleural effusion. Patient was placed on supplemental oxygen in addition to bronchodilator treatment. ? 04/18/2025; patient to be assessed for home oxygen prior to this ? 04/20/2025; did ask patient about possible intubation if warranted. Patient is not show how she wants to proceed and wants to have a discussion with the family prior to making a decision ? 04/21/2025; patient had to be placed on noninvasive ventilation via Airvo after going into respiratory distress with significant hypoxia. 6. Hypotension ? 04/20/2025 patient diuretic therapy as well as antihypertensive and antiarrhythmic's?Cardizem and metoprolol held. Resuscitated with IV fluid. An order was given for patient to be transferred to the intensive care unit. Did place an order for PICC line and order written for norepinephrine if patient does not respond to IV fluid resuscitation ? 04/21/2025; patient did respond to IV fluids 7. Essential hypertension ? Patient is on 40 mg of lisinopril held given patient worsening kidney function ? 04/20/2025; patient antihypertensives on hold given patient relatively low blood pressure 8. Hypothyroidism ? Patient is on levothyroxine home dose continued 9. Class II obesity ? Complicating care weight loss advised 10. Degenerative joint disease ? Pain meds as needed 11. Dyslipidemia ?Patient is on statin therapy, continued at home dose 12. Diabetes mellitus type 2 ? Patient is on metformin held on admission placed on Accu-Cheks AC and at bedtime with sliding scale coverage 13. Bilateral lower extremity venous insufficiency Manage patient to follow-up with PCP for outpatient management 14. Suspected pneumonia with Klebsiella pneumonia ? Patient has elevated WBC count with a left shift. CT of the chest obtained the day prior demonstrated infiltrate at the bases of both lungs. Patient subsequently started on ceftriaxone and azithromycin. Also did send for sputum and blood culture ? 04/19/2025; sputum cultures came out positive for Klebsiella pneumonia remains on appropriate antibiotic therapy 15. Physical deconditioning ? Requested for PT OT eval and social worker health services to assist with discharge planning 16. DVT prophylaxis ? Patient is on apixaban held prior to patient thoracocentesis resumed subsequently Time spent in the patient's overall evaluation,decision-making process, review of diagnostic data, adjustment of management, discussion with other providers, nursing nursing, ancillary staff as well as patient's family involved in patient's care documentation, 55 Charges/Coding Visit Charges Inpatient E&M: 90666 [facility] L3
[2025-04-21 07:18] LABS: Anion Gap 11 (5-15); BUN 95 mg/dL (4-19); Calcium,Total 8.4 mg/dL (7.6-11.0); Carbon Dioxide 24.1 mmol/L (21.0-32.0); Chloride 107 mmol/L (98-108); Creatinine, Serum 1.98 mg/dL (0.70-1.20); EST Glomerular Filtration Rate 24 (>60); Estimated Creatinine Clearance 21.37 ml/min (50-250); Glucose 156 mg/dL (70-99); Potassium 4.3 mmol/L (3.3-5.1); Sodium Level 142 mmol/L (133-145)
[2025-04-21] MEDS: Insulin Lispro 100 UNIT/ML INSULN.PEN SC ×3 (09:19→16:07)
[2025-04-21] MEDS: dilTIAZem 30 MG Tablet PO ×3 (09:20→23:38)
[2025-04-21] MEDS: Metoprolol Tartrate 25 MG Tablet PO ×2 (09:21→21:35)
[2025-04-21] MEDS: metOLazone 5 MG Tablet PO (09:23)
[2025-04-21] MEDS: guaiFENesin 600 MG Tablet PO ×2 (09:23→21:35)
[2025-04-21] MEDS: Multivitamins,Ther W-Minerals Tablet 1 TABLET PO (09:26)
[2025-04-21] MEDS: Pentoxifylline 400 MG Tablet PO ×3 (09:29→21:35)
[2025-04-21] MEDS: Ceftriaxone 2 GM in 0.9% Normal Saline (50mL MB+) 50 ML IV (11:46)
[2025-04-21 12:15] LABS: Bedside Glucose 152 mg/dL (74-106)
[2025-04-21] MEDS: Azithromycin 500 MG in 0.9% Normal Saline (250mL Bag) 250 ML 255 MG IV (13:26)
--- NOTE | 2025-04-21 14:43 | EX.PCM.CON.S ---
Assessment & Plan Assessment/Plan (1) FERMÍN (acute kidney injury): PLAN: Plan The patient is an 84-year-old female with a previous mentioned history of fluid overload and acute renal insufficiency. Creatinine seems to be improving as well as her urine output. She is on Eliquis and apparently was on Eliquis until yesterday afternoon. Generally for this type of procedure, I would recommend around 48 hours of holding Eliquis (i.e. miss 4 doses). 48 hours would be tomorrow. Will continue to hold Eliquis and await nephrology's final recommendations especially in light of improving creatinine. Patient and family states that someone last evening mentioned that she might not even need dialysis with her improvement. I am certainly not at liberty to make this determination. Will await final recommendations from nephrology. We did briefly discuss details of temporary dialysis catheter placement. Patient states that she would like to avoid dialysis unless its necessary. HPI Consult Data Date of Consult: 04/21/25 HPI Narrative Reason for Consultation: Temporary dialysis catheter insertion HPI Narrative: JESS JACKSON, is a 84 F who presents to the hospital with complaints of shortness of breath. Patient has a history of atrial fibrillation and is on Eliquis. Also has hypothyroidism, diabetes. She was recently hospitalized with A-fib RVR in December. Also recently found to have CHF. She has had several thoracenteses performed recently as well. Patient was subsequently admitted for presumed CHF/fluid overload. She was also noted to have elevated creatinine. Medicine and nephrology feel that dialysis may be warranted in this situation. Surgical consult for temporary dialysis catheter placement was placed. Patient was on Eliquis until yesterday afternoon. Review of her labs show that her creatinine is actually improving as well as her urine output. [facility] Medical History Diabetes Kidney disease Non-smoker Venous (peripheral) insufficiency Atrial fibrillation CHF (congestive heart failure) Venous stasis ulcer Hyperpigmentation of skin Lipodermatosclerosis of both lower extremities Right leg swelling Left leg swelling Varicose veins of lower extremity with inflammation, 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 Chronic venous insufficiency Generalized osteoarthrosis History of right breast cancer Cardiomegaly Home Medications ?Medication ?Instructions ?Recorded ?Last Taken ?Type gabapentin 300 mg capsule 300 mg PO QHS Neuropathy 09/30/17 04/15/25 History (Neurontin) levothyroxine 100 mcg tablet 100 mcg PO DAILY 09/30/17 04/16/25 History lisinopril 40 mg tablet 40 mg PO DAILY 09/30/17 04/15/25 History Held on 01/11/25. Instructions: Hold for SBP less than 130 mmHg. Follow with PCP and may decrease the dose to 10 mg daily. metformin 500 mg 24 hr 500 mg PO BID 09/30/17 04/16/25 History tablet,extended release (gastric retention) pentoxifylline 400 mg 1 tab PO TID 09/30/17 04/16/25 History tablet,extended release acetaminophen 500 mg tablet 1,000 mg PO QHS PRN pain 01/08/25 Unknown History (Acetaminophen Extra Strength) cetirizine 10 mg tablet (24Hour 10 mg PO DAILY PRN allergy symptoms 01/08/25 Unknown History Allergy) diosmin complex no.1 630 mg tablet 1 tab PO DAILY 01/08/25 04/15/25 History (Vasculera) iuolhwiduwzg-mdnbdcff-ptdsau 1 tab PO DAILY 01/08/25 04/16/25 History tablet (A Thru Z High Potency tablet) simvastatin 20 mg tablet 20 mg PO QHS 01/08/25 04/15/25 History apixaban 5 mg tablet (Eliquis) 5 mg PO BID 90 days #180 tabs 01/23/25 04/16/25 Rx diltiazem HCl 240 mg 240 mg PO DAILY 3 months #90 caps 01/23/25 04/16/25 Rx capsule,extended release 24 hr (Cardizem CD) furosemide 40 mg tablet 40 mg PO DAILY 3 months #90 tabs 01/23/25 04/15/25 Rx metoprolol tartrate 50 mg tablet 50 mg PO BID 90 days #180 tabs 01/23/25 04/16/25 Rx biotin 5,000 mcg sublingual tablet 5,000 mcg sublingual DAILY 04/16/25 04/15/25 History semaglutide 0.25 mg or 0.5 mg (2 0.5 mg subcut QWEEK diabetes 04/16/25 Unknown History mg/1.5 mL) subcutaneous pen injector (Ozempic) Allergy/AdvReac Type Severity Reaction Status Date / Time enoxaparin (From Lovenox) Allergy Unknown Verified 04/16/25 11:15 oxycodone Allergy Unknown Verified 04/16/25 11:15 Penicillins (PCN) Allergy Unknown Verified 04/16/25 11:15 Family History Other Heart disease Surgical History History of lumpectomy of right breast History of lumbar laminectomy History of total replacement of both hip joints History of total bilateral knee replacement (TKR) Social History Smoking Status: Never smoker Physical Exam Narrative She is alert and oriented x 3. She is in no acute distress. Head is normocephalic and atraumatic. Pupils are equal round and reactive to light. Lab / Micro Data 04/21/25 06:17 04/21/25 06:17 Labs: Laboratory Results - last 24 hr 04/20/25 16:00: POC Glucose 150 H 04/20/25 21:38: POC Glucose 164 H 04/21/25 06:17: WBC 8.7, RBC 3.86 L, Hgb 11.1 L, Hct 34.8 L, MCV 90.2, MCH 28.8, MCHC 31.9 L, RDW Std Deviation 54.4 H, RDW Coeff of Marcial 16.4 H, Plt Count 240, MPV 9.7, Immature Gran % (Auto) 0.300, Neut % (Auto) 82.9 H, Lymph % (Auto) 7.5 L, [place] % (Auto) 8.5, Eos % (Auto) 0.7, Baso % (Auto) 0.1, Absolute Neuts (auto) 7.2, Absolute Lymphs (auto) 0.65 L, Nucleated RBC % 0, Sodium 142, Potassium 4.3, Chloride 107, Carbon Dioxide 24.1, Anion Gap 11, BUN 95 H, Creatinine 1.98 H, Estim Creat Clear Calc 21.37 L, Est GFR (MDRD) Non-Af 24 L, BUN/Creatinine Ratio 48.0 H, Glucose 156 H, Calcium 8.4 04/21/25 11:48: POC Glucose 152 H Micro: Microbiology 04/16/25 16:16 Sputum, Expectorated/Coughed Gram Stain - Final 04/16/25 16:16 Sputum, Expectorated/Coughed Respiratory Culture - Preliminary Klebsiella pneumoniae sp pneum Gram positive organism 04/18/25 11:00 Blood Culture (Wb) - Right Wrist Blood Culture - Preliminary No growth in 48 hours. 04/18/25 10:50 Blood Culture (Wb) - Arm Right Blood Culture - Preliminary No growth in 48 hours. Charges/Coding Visit Charges Inpatient E&M: 91599 Init Hosp L3
--- NOTE | 2025-04-21 15:03 | PCM.PN.REN ---
Subjective Subjective Urine output is better, creatinine is better. She is on metolazone only Objective Data Objective Data Vital Signs: Vital Signs Temp Pulse Resp BP Pulse Ox O2 Del Method O2 Flow Rate 97.8 F 96 18 104/58 L 98 Nasal Cannula 2 04/21/25 11:00 04/21/25 15:00 04/21/25 15:00 04/21/25 15:00 04/21/25 15:00 04/21/25 15:00 04/21/25 15:00 FiO2 30 04/21/25 11:13 Oxygen Flow Rate (L/min) 2 Oxygen Delivery Method Nasal Cannula Weight: 91.2 kg Body Mass Index (BMI) 37.9 Intake & Output: Intake and Output for Last 24 Hours 04/19/25 04/20/25 04/21/25 23:59 23:59 23:59 Intake Total 1592.2 / 1592.2 4155 / 4155 3170 / 3170 Output Total 2865 / 2865 2400 / 2400 1000 / 1000 Balance -1272.8 / -1272.8 1755 / 1755 2170 / 2170 Lab / Micro Data 04/21/25 06:17 04/21/25 06:17 Labs: Laboratory Results - last 24 hr 04/20/25 16:00: POC Glucose 150 H 04/20/25 21:38: POC Glucose 164 H 04/21/25 06:17: WBC 8.7, RBC 3.86 L, Hgb 11.1 L, Hct 34.8 L, MCV 90.2, MCH 28.8, MCHC 31.9 L, RDW Std Deviation 54.4 H, RDW Coeff of Marcial 16.4 H, Plt Count 240, MPV 9.7, Immature Gran % (Auto) 0.300, Neut % (Auto) 82.9 H, Lymph % (Auto) 7.5 L, [place] % (Auto) 8.5, Eos % (Auto) 0.7, Baso % (Auto) 0.1, Absolute Neuts (auto) 7.2, Absolute Lymphs (auto) 0.65 L, Nucleated RBC % 0, Sodium 142, Potassium 4.3, Chloride 107, Carbon Dioxide 24.1, Anion Gap 11, BUN 95 H, Creatinine 1.98 H, Estim Creat Clear Calc 21.37 L, Est GFR (MDRD) Non-Af 24 L, BUN/Creatinine Ratio 48.0 H, Glucose 156 H, Calcium 8.4 04/21/25 11:48: POC Glucose 152 H Micro: Microbiology 04/16/25 16:16 Sputum, Expectorated/Coughed Gram Stain - Final 04/16/25 16:16 Sputum, Expectorated/Coughed Respiratory Culture - Preliminary Klebsiella pneumoniae sp pneum Gram positive organism 04/18/25 11:00 Blood Culture (Wb) - Right Wrist Blood Culture - Preliminary No growth in 48 hours. 04/18/25 10:50 Blood Culture (Wb) - Arm Right Blood Culture - Preliminary No growth in 48 hours. 04/18/25 10:51 Mucosa - Nasopharyngeal Respiratory Panel (PCR) - Final 04/18/25 10:00 Urine Catheter - Ray Legionella Antigen - Final 04/18/25 10:00 Urine Catheter - Ray Streptococcus pneumoniae Antigen (M - Final 04/18/25 10:51 Mucosa - Nasopharyngeal Coronavirus COVID-19 PCR - Final Physical Exam Narrative Alert awake oriented x 3 no obvious distress no pallor no icterus no JVD s1s2 no murmurs lungs clear abdomen soft no organomegaly +++ edema no cyanosis ray + Assessment & Plan Assessment/Plan (1) FERMÍN (acute kidney injury): PLAN: Baseline creatinine is around 1.1. Previous admission creatinine was close to baseline. This admission creatinine is around 2.6-2.8. Renal ultrasound without any hydronephrosis. Urine analysis shows 2+ protein. HbA1c 6.9. Urine PCR 0.9 gm She has significant volume overload in the form of lower extremity edema, repeated pleural effusions. Surprisingly echocardiogram showed ejection fraction normal, presumably this is diastolic dysfunction. However BNP last admission was only around 230. This admission proBNP is only twice the normal limits. Due to proteinuria, renal failure, repeated pleural effusions, sent serology to rule out autoimmune conditions. We stopped Lasix drip on Tuesday and added metolazone. Surprisingly urine output actually picked up with metolazone. And creatinine is better. Blood pressure about the same. There is few readings this morning that are high but she attributes those to coughing and other sympathetic responses. We all agreed that improvement in creatinine is a good thing. Most likely this is because Lasix has been stopped. I am not sure how to explain the increase in urine output with less Lasix. Maybe she had some Lasix resistance prior to that. We also agreed that we need to go back on at least some Lasix for maintenance diuresis. Will add twice a day dosing. Continue metolazone. If renal function continues to do well, there is no need for dialysis. Will repeat labs daily for now. Discussed with family at bedside. All questions answered.
[2025-04-21 16:26] LABS: Bedside Glucose 160 mg/dL (74-106)
[2025-04-21] MEDS: Gabapentin 300 MG Capsule PO (21:35)
[2025-04-21] MEDS: Atorvastatin Calcium 10 MG Tablet PO (21:35)
[2025-04-21 22:11] LABS: Bedside Glucose 144 mg/dL (74-106)
[2025-04-22] VITALS (35 sets, daily range): BP systolic 88–130; BP diastolic 63–100; PULSE 103–162; RESP 12–29; TEMP 35.9–36.4; O2SAT 90–100; BMI 39.6
--- NOTE | 2025-04-22 | FLU_PTH ---
PATIENT: JESS JACKSON [facility] U#:[id number] AGE/SX: 84/F ROOM: [facility] RE04/16/[address]: Dr. Amado Bailey MD : [id number] BED: 1 DIS: 04/26/2025 SPEC #: [id number] RECD: 04/22/25 14:33 STATUS: SOUT REQ #: [id number] NAA: 04/22/25 00:[address]: Amado Bailey DEPT: CYTOLOGY RECD BY: Man Preciado ENTERED: 04/23/25 11:09 SP TYPE: Fluid OTHR DR: MD Dr. Darien Griffin MD Dr. Bruce Arthur, MD Dr. Derek Brown, DO Dr. David P Myers, MD Dr. Eric Jopperi, DO Dr. Edward Matheis, MD Dr. Farouk Belal, MD Dr. Gautam Baskaran, MD Dr. Yordanos Habtegebriel, MD Dr. Hemant Dand, MD Dr. Jayaprakas Dasari, MD Dr. Jose Ochoa, MD Dr. Justin Wong, MD Dr. Kimber Foust, MD Dr. Lamia Aljundi, MD Dr. Michael Hughes, MD Dr. Marisa Magana, MD Dr. Pritam Ghosh, MD Dr. Pavan Irukulla, MD Dr. Saad Farooqi, MD Dr. Sukhdeep Dhesi, DO Dr. Sujoy Gill, MD Dr. Soleyah Groves, MD Dr. Steven A Wanek, MD Dr. Timothy Fernstrom, MD Dr. Roger Linn Dr., MD Eric W Richards Tissues: A - THORACIC FLUID Procedures: Immunohistochemical Stains Special Stain Group II Surgery Specimen Level IV Cytospin Fluid IHC Stain ADDITIONAL HEADER OPERATION: Thoracentesis PRE-OP DIAGNOSIS: Pleural effusion TISSUE SUBMITTED: A- Thoracentesis fluid for cytology DIAGNOSIS CYTOLOGY A. Pleural fluid, thoracentesis (cytospin, cellblock): * No malignant cells identified - see note. * Note: A few Calretinin+ mesothelial cells are present with reactive cytologic features. E-cadherin is negative. CYTOLOGY STUDY Slides are reviewed. All matched controls reacted appropriately. These tests were developed and their performance characteristics determined by [facility]. They may not have been cleared or approved by the U.S. Food and Drug Administration. The FDA has determined that such clearance or approval is not necessary.? The above immunohistochemical/dualISH?markers are reviewed by the Pathologist. CYTOLOGY GROSS A. Received is 90 ml of yellow-cloudy fluid labeled with the patient's name and and designated per the requisition as Thoracentesis fluid. Submitted for cytology and cell block preparation. Mr 04/23/2025 CPT: 98905 , 22392, [id number]
[2025-04-22] MEDS: 0.9% Normal Saline (1000mL) 1,000 ML 250 ML IV (04:10)
[2025-04-22] MEDS: 0.9% Saline Lock 10 ML Syringe IV (05:42)
[2025-04-22] MEDS: dilTIAZem 30 MG Tablet PO ×4 (05:42→23:02)
[2025-04-22] MEDS: Levothyroxine 100 MCG Tablet PO (05:42)
[2025-04-22 05:55] LABS: Absolute Lymphocyte Count 0.56 X10^3/uL (0.83-4.51); Absolute Neutrophil Count 5.4 X10^3/uL (2.0-7.7); Basophil# 0.01 X10^3/uL; Basophil% 0.2 % (0-1); Eosinophils% 1.5 % (0-5); Hematocrit 28.4 % (37-47); Hemoglobin 8.7 g/dL (12.0-15.0); Lymphocyte # 0.56 X10^3/ul (0.83-4.51); Lymphocyte % 8.5 % (19-41); Mean Corp Hgb Conc 30.6 g/dL (32-36); Mean Corpuscular Hgb 28.4 pg (27.0-32.0); Mean Corpuscular Volume 92.8 fL (81-99); Mean Platelet Vol. 9.8 fl (6.2-12.0); Monocyte# 0.48 X10^3/uL; Monocyte% 7.3 % (0-10); NRBC Flagged by Analyzer 0 % (0-5); Neutrophil # 5.38 X10^3/uL (2.7-7.7); POSITIVE DIFFERENTIAL YES; Platelet Count 183 K/mm3 (150-450); RBC Distribution Width CV 16.4 % (11.6-14.6); RBC Distribution Width SD 55.7 fl (35.1-43.9); Red Blood Count 3.06 M/mm3 (4.2-5.4); White Blood Count 6.6 K/mm3 (4.4-11.0)
[2025-04-22 06:22] LABS: Anion Gap 7 (5-15); BUN 58 mg/dL (4-19); BUN/Creat Ratio 56.6 RATIO (10-20); Calcium,Total 6.3 mg/dL (7.6-11.0); Carbon Dioxide 19.1 mmol/L (21.0-32.0); Chloride 118 mmol/L (98-108); Creatinine, Serum 1.03 mg/dL (0.70-1.20); EST Glomerular Filtration Rate 53 (>60); Estimated Creatinine Clearance 42.11 ml/min (50-250); Glucose 126 mg/dL (70-99); Potassium 2.9 mmol/L (3.3-5.1); Sodium Level 144 mmol/L (133-145)
--- NOTE | 2025-04-22 07:07 | PN.HOSP_ITS ---
Reason for Visit Reason for Visit: Diagnoses Unspecified atrial fibrillation (04/16/25) Unspecified diastolic (congestive) heart failure (04/16/25) Pleural effusion, not elsewhere classified (04/16/25) Acute kidney failure, unspecified (04/16/25) Personal history of other endocrine, nutritional and metabolic disease (04/16/25) Subjective Subjective Patient seen, patient has been weaned off Airvo. Diagnostic data at this a.m. significant for potassium of 2.9 patient creatinine is down to 1.08. Repeat BMP ordered patient repeat labs demonstrated creatinine 1.38 and BUN of 70 with a potassium of 4.2 Objective Data Objective Data Vital Signs: Vital Signs Temp Pulse Resp BP Pulse Ox O2 Del Method O2 Flow Rate 97.8 F 121 H 22 H 115/95 H 95 Nasal Cannula 2 04/21/25 11:00 04/22/25 07:00 04/22/25 07:00 04/22/25 07:00 04/22/25 07:00 04/22/25 07:00 04/22/25 07:00 FiO2 30 04/21/25 15:03 Oxygen Flow Rate (L/min) 2 Oxygen Delivery Method Nasal Cannula Weight: 95.3 kg Body Mass Index (BMI) 39.6 Intake & Output: Intake and Output for Last 24 Hours 04/20/25 04/21/25 04/22/25 23:59 23:59 23:59 Intake Total 4155 / 4155 6425 / 6425 1120 / 1120 Output Total 2400 / 2400 2450 / 2450 900 / 900 Balance 1755 / 1755 3975 / 3975 220 / 220 Lab / Micro Data 04/22/25 05:40 04/22/25 07:37 Labs: Laboratory Results - last 24 hr 04/21/25 06:17: Sodium 142, Potassium 4.3, Chloride 107, Carbon Dioxide 24.1, Anion Gap 11, BUN 95 H, Creatinine 1.98 H, Estim Creat Clear Calc 21.37 L, Est GFR (MDRD) Non-Af 24 L, BUN/Creatinine Ratio 48.0 H, Glucose 156 H, Calcium 8.4 04/21/25 11:48: POC Glucose 152 H 04/21/25 16:06: POC Glucose 160 H 04/21/25 21:39: POC Glucose 144 H 04/22/25 05:40: WBC 6.6, RBC 3.06 L, Hgb 8.7 L, Hct 28.4 L, MCV 92.8, MCH 28.4, MCHC 30.6 L, RDW Std Deviation 55.7 H, RDW Coeff of Marcial 16.4 H, Plt Count 183, MPV 9.8, Immature Gran % (Auto) 0.500, Neut % (Auto) 82.0 H, Lymph % (Auto) 8.5 L, [place] % (Auto) 7.3, Eos % (Auto) 1.5, Baso % (Auto) 0.2, Absolute Neuts (auto) 5.4, Absolute Lymphs (auto) 0.56 L, Nucleated RBC % 0, Sodium 144, Potassium 2.9 L, Chloride 118 H, Carbon Dioxide 19.1 L, Anion Gap 7, BUN 58 H, Creatinine 1.03, Estim Creat Clear Calc 42.11 L, Est GFR (MDRD) Non-Af 53 L, BUN/Creatinine Ratio 56.6 H, Glucose 126 H, Calcium 6.3 L* Micro: Microbiology 04/16/25 16:16 Sputum, Expectorated/Coughed Gram Stain - Final 04/16/25 16:16 Sputum, Expectorated/Coughed Respiratory Culture - Preliminary Klebsiella pneumoniae sp pneum Gram positive organism 04/18/25 11:00 Blood Culture (Wb) - Right Wrist Blood Culture - Preliminary No growth in 48 hours. 04/18/25 10:50 Blood Culture (Wb) - Arm Right Blood Culture - Preliminary No growth in 48 hours. 04/18/25 10:51 Mucosa - Nasopharyngeal Respiratory Panel (PCR) - Final 04/18/25 10:00 Urine Catheter - Metzger Legionella Antigen - Final 04/18/25 10:00 Urine Catheter - Metzger Streptococcus pneumoniae Antigen (M - Final 04/18/25 10:51 Mucosa - Nasopharyngeal Coronavirus COVID-19 PCR - Final Physical Exam Narrative GENERAL: Appears fatigued on nasal cannula HEENT: Atraumatic; normocephalic EYES; Anicteric, Normal Conjunctiva NECK; supple, normal thyroid, RESPIRATORY: Diminished to auscultation, CARDIOVASCULAR: Irregular S1-S2 but rate controlled GI: soft, normoactive bowel sounds, : No Renal angle tenderness; EXTREMITIES: Bipedal edema, no clubbing, MUSCULOSKELETAL: no muscle wasting NEURO: Awake; no lateralizing signs. SKIN: No Rash PSYCH; Flat affect Assessment & Plan Assessment/Plan (1) (HFpEF) heart failure with preserved ejection fraction: (2) Pleural effusion: (3) FERMÍN (acute kidney injury): (4) Atrial fibrillation with rapid ventricular response: PLAN: Plan Patient is an 84-year-old lady with past medical history significant for paroxysmal A-fib who presented with progressive shortness of breath and assessment of acute congestive heart failure made admitted to monitored bed for further management 1. Acute on chronic congestive heart failure with preserved ejection fraction ? Patient admitted to monitored bed treatment initiated with strict input and output, daily weights, fluid restriction as well as diuretic therapy with furosemide drip. As part of patient's management 2D echo was ordered on admission demonstrated ejection fraction of 55-60 % and Severe biatrial enlargement. ? Patient is on furosemide drip however response to therapy not impressive. Consult placed to cardiology. Family request ? 04/19/2025; patient is on furosemide drip however appears not to be responding. Creatinine and BUN worsening. ? 04/20/2025; patient BUN and creatinine continues to worsen. Lasix drip held given patient being relatively hypotensive. ? 04/21/2025; patient furosemide discontinued started on Zaroxolyn 2. Large right-sided pleural effusion ? CT of the chest obtained did show Large right pleural effusion with compressive atelectasis. Small left pleural effusion with compressive atelectasis.. An order was given for patient to undergo ultrasound-guided thoracocentesis as part of subsequent evaluation ordered pleural fluid studies including LDH WBC, and glucose levels ? 04/18/2025; patient ultrasound guided thoracocentesis centesis scheduled for 04/19/2025. ? 04/19/2025; patient scheduled to undergo ultrasound-guided paracentesis ? 04/20/2025: Patient underwent ultrasound-guided thoracocentesis on 04/19/2025 with 1350 mL of blood-tinged fluid aspirated sample sent to the lab for analysis.Patient was noted to be dyspneic earlier in the early hours of this a.m. patient placed on supplemental oxygen repeat x-ray ordered which did show reaccumulation of a moderate right pleural effusion again with adjacent right base passive collapse. No pneumothorax identified. Similar appearance of possible small left effusion and basilar atelectasis, passive collapse. ? 04/22/2025; repeat chest x-ray ordered for further evaluation 3. Acute kidney injury ? Suspected to be secondary to hypoperfusion from patient congestive heart failure. Creatinine from 01/10/2025 was 1.07 creatinine on admission was 2.31. Patient kidney function actually did worsen with diuresis with creatinine bumping up to 2.62. Subsequently requested for kidney ultrasound and nephrology consultation obtained ? 04/18/2025; patient kidney function did worsen. Subsequently requested nephrology consultation as well as ordered kidney ultrasound. Repeat BMP ordered in a.m. for follow-up ? 04/19/2025; Patient kidney function continues to worsen with BUN of 108 and creatinine of 2.93. Consult has been placed to nephrology today prior renal ultrasound obtained came back unremarkable. Repeat BMP ordered for a.m. ? 04/20/2025; patient kidney function continues to worsen. Family to decide if they want to proceed with temporary dialysis. Had a discussion with patient and son-in-law. Patient is agreeable to temporary dialysis catheter for now.. Consult subsequently placed to general surgery Case discussed with Dr. Michael De Luna ? 04/21/2025; patient creatinine down to 1.98, BUN down to 95 ? 04/22/2025; BMP this morning reviewed. Significant improvement in creatinine which is down to 1.03. Repeat BMP ordered. 4. Paroxysmal atrial fibrillation ? Patient went into A-fib with RVR necessitating patient being started on Cardizem drip which is currently being titrated to keep heart rate less than 100 ? 04/20/2025 patient is on apixaban decision was made to hold in anticipation of possible temporary dialysis catheter placement ? 04/21/2025; patient apixaban placed on hold. Started on p.o. Cardizem and metoprolol given her heart rates going up ? 04/22/2025; patient heart rates control still not optimal continues to remain labile 5. Acute hypoxic respiratory failure ? Secondary to congestive heart failure and large right sided pleural effusion. Patient was placed on supplemental oxygen in addition to bronchodilator treatment. ? 04/18/2025; patient to be assessed for home oxygen prior to this ? 04/20/2025; did ask patient about possible intubation if warranted. Patient is not show how she wants to proceed and wants to have a discussion with the family prior to making a decision ? 04/21/2025; patient had to be placed on noninvasive ventilation via Airvo after going into respiratory distress with significant hypoxia. ? 04/22/2025; patient has been weaned off Airvo now on nasal 6. Hypotension ? 04/20/2025 patient diuretic therapy as well as antihypertensive and antiarrhythmic's?Cardizem and metoprolol held. Resuscitated with IV fluid. An order was given for patient to be transferred to the intensive care unit. Did place an order for PICC line and order written for norepinephrine if patient does not respond to IV fluid resuscitation ? 04/21/2025; patient did respond to IV fluids 7. Essential hypertension ? Patient is on 40 mg of lisinopril held given patient worsening kidney function ? 04/20/2025; patient antihypertensives on hold given patient relatively low blood pressure 8. Hypothyroidism ? Patient is on levothyroxine home dose continued 9. Class II obesity ? Complicating care weight loss advised 10. Degenerative joint disease ? Pain meds as needed 11. Dyslipidemia ?Patient is on statin therapy, continued at home dose 12. Diabetes mellitus type 2 ? Patient is on metformin held on admission placed on Accu-Cheks AC and at bedtime with sliding scale coverage 13. Bilateral lower extremity venous insufficiency Manage patient to follow-up with PCP for outpatient management 14. Suspected pneumonia with Klebsiella pneumonia ? Patient has elevated WBC count with a left shift. CT of the chest obtained the day prior demonstrated infiltrate at the bases of both lungs. Patient subsequently started on ceftriaxone and azithromycin. Also did send for sputum and blood culture ? 04/19/2025; sputum cultures came out positive for Klebsiella pneumonia remains on appropriate antibiotic therapy 15. Physical deconditioning ? Requested for PT OT eval and director social welfare to assist with discharge planning 16. DVT prophylaxis ? Patient is on apixaban held prior to patient thoracocentesis resumed subsequently Time spent in the patient's overall evaluation,decision-making process, review of diagnostic data, adjustment of management, discussion with other providers, nursing nursing, ancillary staff as well as patient's family involved in patient's care documentation, 50 Charges/Coding Visit Charges Inpatient E&M: 49267 Subs Hosp L3
--- NOTE | 2025-04-22 07:35 | RAD_ITS ---
PROCEDURE: CHEST 1 VIEW (PORTABLE) 04/22/2025 REASON FOR EXAM: DYSPNEA TECHNIQUE: Frontal view of the chest. COMPARISON: 04/20/2025 FINDINGS: Lungs: Opacities in the right upper lobe Pleura: Increase in the right pleural effusion. Small left pleural effusion blunts the lateral costophrenic angle. Heart: Cardiac enlargement, stable. Calcifications of the mitral annulus. Mediastinum/[place]: Unremarkable. Great vessels: Unremarkable. Bones/soft tissues: Unremarkable. Cardiac monitoring leads overlie the chest wall. RAD/Chest 1 View (Portable) IMPRESSION: 1. Increase in the right pleural effusion since the previous study. 2. Can not exclude a superimposed infiltrate particularly in the right upper l obe. 3. Small left pleural effusion. 4. Stable cardiomegaly. Reading Location: [place] [address]
[2025-04-22] MEDS: Multivitamins,Ther W-Minerals Tablet 1 TABLET PO (08:43)
[2025-04-22] MEDS: Pentoxifylline 400 MG Tablet PO ×3 (08:43→21:35)
[2025-04-22 08:50] LABS: Anion Gap 11 (5-15); BUN 70 mg/dL (4-19); BUN/Creat Ratio 50.8 RATIO (10-20); Calcium,Total 8.3 mg/dL (7.6-11.0); Carbon Dioxide 21.8 mmol/L (21.0-32.0); Chloride 110 mmol/L (98-108); Creatinine, Serum 1.38 mg/dL (0.70-1.20); EST Glomerular Filtration Rate 38 (>60); Estimated Creatinine Clearance 31.43 ml/min (50-250); Glucose 152 mg/dL (70-99); Potassium 4.2 mmol/L (3.3-5.1); Sodium Level 142 mmol/L (133-145)
--- NOTE | 2025-04-22 09:09 | US_ITS ---
PROCEDURE: DIAGNOSTIC ULTRASOUND-GUIDED RIGHT THORACENTESIS 04/22/2025 REASON FOR EXAM: RECURRENT PLEURAL EFFUSION. TECHNIQUE: ULTRASOUND IMAGING WAS UTILIZED TO DOCUMENT THE SITE OF THORACENTESIS. COMPARISON: EARLIER THORACENTESIS DATED 04/19/2025, RIGHT HEMITHORAX. FINDINGS: Informed consent was obtained. The patient was prepped and draped in the usual sterile fashion. Anesthetic: Lidocaine 2% was utilized for local anesthesia. Catheter: 5 Fr, 10 cm in length [id number] Centesis Catheter. Drained fluid: 1550 mL. Fluid color: Light reddish. Fluid clarity: Clear. Fluid disposition: Approximately 100 mL sent to the laboratory for further testing. US/Thoracentesis W US IMPRESSION: Successful right thoracentesis under ultrasound guidance. The patient tolerate d the procedure well. No post thoracentesis fluid is documented. Specimens sent to the laboratory for further testing. Thank you for this referral. Reading Location: [place] [address]
[2025-04-22] MEDS: Metoprolol Tartrate 25 MG Tablet PO ×2 (09:24→21:35)
[2025-04-22] MEDS: guaiFENesin 600 MG Tablet PO ×2 (09:25→21:35)
[2025-04-22] MEDS: Insulin Lispro 100 UNIT/ML INSULN.PEN SC (09:26)
[2025-04-22] MEDS: metOLazone 5 MG Tablet PO (09:26)
[2025-04-22] MEDS: Ceftriaxone 2 GM in 0.9% Normal Saline (50mL MB+) 50 ML IV (09:35)
--- NOTE | 2025-04-22 09:39 | CASEMGMT ---
Social Work SW created in [facility], for pt if needed, a list of prison facilities in network w/pt's insurance, in pt's preferred geographic area and complete w/quality and resource use data. CÉSAR Gonzalez
--- NOTE | 2025-04-22 10:01 | EX.PCM.CONCC ---
Assessment & Plan Assessment/Plan (1) (HFpEF) heart failure with preserved ejection fraction: (2) Pleural effusion: PLAN: Plan RECOMMENDATIONS: 1. Supplemental oxygen to maintain saturations at or above 90%. 2. Continue attempts at volume optimization with diuretics, as tolerated by hemodynamics and renal function. 3. Continue antimicrobials to complete 7 days of therapy. 4. Plan to repeat ultrasound-guided thoracentesis and resend pleural fluid for analysis. Orders have been placed accordingly. 5. Encourage incentive spirometer use and mobilize patient as tolerated. IMPRESSIONS: 1. Shortness of breath with hypoxemia Most likely related to decompensated heart failure with preserved ejection fraction. In addition, the patient was noted to have a sputum culture which was positive for pansensitive Klebsiella. Accordingly, the patient will be continued on antimicrobials along with supplemental oxygen to maintain saturations at or above 90%. Continue attempts at volume optimization with diuretics, as tolerated by hemodynamics and renal function. 2. Recurrent bilateral pleural effusions, right greater than left Most likely secondary to heart failure with preserved ejection fraction. The patient did have a thoracentesis in December 2024, which was transudative in nature. Although the patient has undergone a repeat thoracentesis on April 17, serum LDH and total protein was not checked. Therefore it is not clear if this is a recurrent transudative effusion. Given that the patient's chest x-ray is demonstrating increasing size of the patient's right-sided effusion, I agree with repeating the ultrasound-guided thoracentesis and resending pleural fluid for analysis, as ordered. Ultimately, if it is proven that the patient has a recurrent effusion related to congestive heart failure that is refractory to the use of diuretics, she may require evaluation by thoracic surgery. 3. Acute kidney injury/paroxysmal atrial fibrillation/hypertension/hypothyroidism/obesity/diabetes mellitus Complicates care, management, recovery and prognosis. Will defer management of renal insufficiency to nephrology. Otherwise, continue supportive care as noted above. This note was generated with [employer] dictation software. It may contain incorrect words, spelling, and punctuation that were not noted in checking the note before signing. HPI Consult Data Date of Consult: 04/22/25 HPI Narrative Reason for Consultation: Recurrent pleural effusion HPI Narrative: The patient is an 84-year-old female, with a history as outlined below, who presented to the emergency department on April 16 with progressive dyspnea. The patient has a known history of paroxysmal atrial fibrillation and is currently followed by cardiology on an outpatient basis. The patient was hospitalized in December 2024 with atrial fibrillation with RVR with a large right-sided pleural effusion, for which she underwent ultrasound-guided thoracentesis with 1.3 L of fluid removed from the pleural space. The pleural fluid was noted to be transudative in nature. On presentation to the emergency department, the patient was documented to be afebrile but was notably tachycardic with a blood pressure of 93/66 mmHg. Laboratory evaluation revealed a white blood cell count of 13,000. Chemistry profile was notable for a potassium of 5.2, BUN of 66 and creatinine of 2.31. BNP was elevated at 4839. Chest imaging demonstrated bilateral pleural effusions. CT chest confirmed the presence of a large right and small left pleural effusion with compressive atelectasis. The patient was ultimately placed on diuretic therapy with consultation placed to cardiology and nephrology. A repeat ultrasound-guided thoracentesis of the right pleural space was completed on April 19 with 1.3 L of fluid removed. Unfortunately, serum LDH and total protein were never sent. Therefore, it is not clear as to whether this effusion represents a recurrent transudative effusion. It should be noted that the patient did have a positive sputum culture on April 16 which demonstrated pansensitive Klebsiella. The patient has been maintained on antimicrobials. Surface echocardiogram demonstrated an ejection fraction of 55 to 60% with severe left atrial dilation. [facility], [facility] Medical History Diabetes Kidney disease Non-smoker Venous (peripheral) insufficiency Atrial fibrillation CHF (congestive heart failure) Venous stasis ulcer Hyperpigmentation of skin Lipodermatosclerosis of both lower extremities Right leg swelling Left leg swelling Varicose veins of lower extremity with inflammation, 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 Chronic venous insufficiency Generalized osteoarthrosis History of right breast cancer Cardiomegaly Home Medications ?Medication ?Instructions ?Recorded ?Last Taken ?Type gabapentin 300 mg capsule 300 mg PO QHS Neuropathy 09/30/17 04/15/25 History (Neurontin) levothyroxine 100 mcg tablet 100 mcg PO DAILY 09/30/17 04/16/25 History lisinopril 40 mg tablet 40 mg PO DAILY 09/30/17 04/15/25 History Held on 01/11/25. Instructions: Hold for SBP less than 130 mmHg. Follow with PCP and may decrease the dose to 10 mg daily. metformin 500 mg 24 hr 500 mg PO BID 09/30/17 04/16/25 History tablet,extended release (gastric retention) pentoxifylline 400 mg 1 tab PO TID 09/30/17 04/16/25 History tablet,extended release acetaminophen 500 mg tablet 1,000 mg PO QHS PRN pain 01/08/25 Unknown History (Acetaminophen Extra Strength) cetirizine 10 mg tablet (24Hour 10 mg PO DAILY PRN allergy symptoms 01/08/25 Unknown History Allergy) diosmin complex no.1 630 mg tablet 1 tab PO DAILY 01/08/25 04/15/25 History (Vasculera) pbdxeofqpvnj-fxfotaxa-epwwsq 1 tab PO DAILY 01/08/25 04/16/25 History tablet (A Thru Z High Potency tablet) simvastatin 20 mg tablet 20 mg PO QHS 01/08/25 04/15/25 History apixaban 5 mg tablet (Eliquis) 5 mg PO BID 90 days #180 tabs 01/23/25 04/16/25 Rx diltiazem HCl 240 mg 240 mg PO DAILY 3 months #90 caps 01/23/25 04/16/25 Rx capsule,extended release 24 hr (Cardizem CD) furosemide 40 mg tablet 40 mg PO DAILY 3 months #90 tabs 01/23/25 04/15/25 Rx metoprolol tartrate 50 mg tablet 50 mg PO BID 90 days #180 tabs 01/23/25 04/16/25 Rx biotin 5,000 mcg sublingual tablet 5,000 mcg sublingual DAILY 04/16/25 04/15/25 History semaglutide 0.25 mg or 0.5 mg (2 0.5 mg subcut QWEEK diabetes 04/16/25 Unknown History mg/1.5 mL) subcutaneous pen injector (Ozempic) Allergy/AdvReac Type Severity Reaction Status Date / Time enoxaparin (From Lovenox) Allergy Unknown Verified 04/16/25 11:15 oxycodone Allergy Unknown Verified 04/16/25 11:15 Penicillins (PCN) Allergy Unknown Verified 04/16/25 11:15 Family History Other Heart disease Surgical History History of lumpectomy of right breast History of lumbar laminectomy History of total replacement of both hip joints History of total bilateral knee replacement (TKR) Social History Smoking Status: Never smoker ROS ROS Narrative 10 systems were reviewed with pertinent positives as noted in the HPI above. Physical Exam Const alert, oriented x3 and no apparent distress Constitutional Narrative: Sitting in bedside recliner. Family is present at the bedside. General Appearance: cooperative HEENT normocephalic and head/scalp atraumatic Eyes PERRL, EOMs intact bilaterally and conjunctivae normal Neck supple General: trachea midline Chest inspection of chest normal Resp normal respiratory effort Auscultation: diminished lung sounds Cardio regular rate and regular rhythm GI normal to inspection, nondistended, normoactive bowel sounds Extremity no clubbing, cyanosis or edema Skin no rashes or lesions noted Neuro CN's II-XII intact bilaterally, moves all extremities and no focal motor deficits Psych cooperative and affect normal Lab / Micro Data 04/22/25 05:40 04/22/25 07:37 Labs: Laboratory Results - last 24 hr 04/21/25 11:48: POC Glucose 152 H 04/21/25 16:06: POC Glucose 160 H 04/21/25 21:39: POC Glucose 144 H 04/22/25 05:40: WBC 6.6, RBC 3.06 L, Hgb 8.7 L, Hct 28.4 L, MCV 92.8, MCH 28.4, MCHC 30.6 L, RDW Std Deviation 55.7 H, RDW Coeff of Marcial 16.4 H, Plt Count 183, MPV 9.8, Immature Gran % (Auto) 0.500, Neut % (Auto) 82.0 H, Lymph % (Auto) 8.5 L, [place] % (Auto) 7.3, Eos % (Auto) 1.5, Baso % (Auto) 0.2, Absolute Neuts (auto) 5.4, Absolute Lymphs (auto) 0.56 L, Nucleated RBC % 0, Sodium 144, Potassium 2.9 L, Chloride 118 H, Carbon Dioxide 19.1 L, Anion Gap 7, BUN 58 H, Creatinine 1.03, Estim Creat Clear Calc 42.11 L, Est GFR (MDRD) Non-Af 53 L, BUN/Creatinine Ratio 56.6 H, Glucose 126 H, Calcium 6.3 L* 04/22/25 07:37: Sodium 142, Potassium 4.2, Chloride 110 H, Carbon Dioxide 21.8, Anion Gap 11, BUN 70 H, Creatinine 1.38 H, Estim Creat Clear Calc 31.43 L, Est GFR (MDRD) Non-Af 38 L, BUN/Creatinine Ratio 50.8 H, Glucose 152 H, Calcium 8.3 Micro: Microbiology 04/16/25 16:16 Sputum, Expectorated/Coughed Gram Stain - Final 04/16/25 16:16 Sputum, Expectorated/Coughed Respiratory Culture - Final Klebsiella pneumoniae sp pneum Imaging Radiology Impression Chest X-Ray 04/22/25 07:35 IMPRESSION: 1. Increase in the right pleural effusion since the previous study. 2. Can not exclude a superimposed infiltrate particularly in the right upper lobe. 3. Small left pleural effusion. 4. Stable cardiomegaly. Reading Location: [facility] Charges/Coding Visit Charges Inpatient E&M: 22723 Init Hosp L3
[2025-04-22 10:06] LABS: International Normalized Ratio 1.4; Prothrombin Time (Protime)PT. 17.5 SECONDS (11.7-14.9)
[2025-04-22 10:06] LABS: Protein, Total 5.9 g/dL (5.9-8.4)
[2025-04-22 10:41] LABS: LDH 231 U/L (84-246)
--- NOTE | 2025-04-22 11:42 | PN.RENAL_ITS ---
Subjective Subjective Sitting up in bed. Denies any complaints. Going for thoracentesis tomorrow. Objective Data Objective Data Vital Signs: Vital Signs Temp Pulse Resp BP Pulse Ox O2 Del Method O2 Flow Rate 97.0 F L 122 H 16 105/63 98 High Flow 4 04/22/25 08:00 04/22/25 11:06 04/22/25 11:06 04/22/25 11:06 04/22/25 11:06 04/22/25 11:06 04/22/25 11:26 FiO2 30 04/21/25 15:03 Oxygen Flow Rate (L/min) 4 Oxygen Delivery Method High Flow Weight: 95.3 kg Body Mass Index (BMI) 39.6 Intake & Output: Intake and Output for Last 24 Hours 04/20/25 04/21/25 04/22/25 23:59 23:59 23:59 Intake Total 4155 / 4155 6425 / 6425 2170 / 2170 Output Total 2400 / 2400 2450 / 2450 1300 / 1300 Balance 1755 / 1755 3975 / 3975 870 / 870 Lab / Micro Data 04/22/25 05:40 04/22/25 07:37 Labs: Laboratory Results - last 24 hr 04/21/25 11:48: POC Glucose 152 H 04/21/25 16:06: POC Glucose 160 H 04/21/25 21:39: POC Glucose 144 H 04/22/25 05:40: WBC 6.6, RBC 3.06 L, Hgb 8.7 L, Hct 28.4 L, MCV 92.8, MCH 28.4, MCHC 30.6 L, RDW Std Deviation 55.7 H, RDW Coeff of Marcial 16.4 H, Plt Count 183, MPV 9.8, Immature Gran % (Auto) 0.500, Neut % (Auto) 82.0 H, Lymph % (Auto) 8.5 L, [place] % (Auto) 7.3, Eos % (Auto) 1.5, Baso % (Auto) 0.2, Absolute Neuts (auto) 5.4, Absolute Lymphs (auto) 0.56 L, Nucleated RBC % 0, Sodium 144, Potassium 2.9 L, Chloride 118 H, Carbon Dioxide 19.1 L, Anion Gap 7, BUN 58 H, Creatinine 1.03, Estim Creat Clear Calc 42.11 L, Est GFR (MDRD) Non-Af 53 L, BUN/Creatinine Ratio 56.6 H, Glucose 126 H, Calcium 6.3 L* 04/22/25 07:37: Sodium 142, Potassium 4.2, Chloride 110 H, Carbon Dioxide 21.8, Anion Gap 11, BUN 70 H, Creatinine 1.38 H, Estim Creat Clear Calc 31.43 L, Est GFR (MDRD) Non-Af 38 L, BUN/Creatinine Ratio 50.8 H, Glucose 152 H, Calcium 8.3, Lactate Dehydrogenase 231, Total Protein 5.9 04/22/25 09:50: PT 17.5 H, INR 1.4, APTT 28.0 Micro: Microbiology 04/16/25 16:16 Sputum, Expectorated/Coughed Gram Stain - Final 04/16/25 16:16 Sputum, Expectorated/Coughed Respiratory Culture - Final Klebsiella pneumoniae sp pneum 04/18/25 11:00 Blood Culture (Wb) - Right Wrist Blood Culture - Preliminary No growth in 48 hours. 04/18/25 10:50 Blood Culture (Wb) - Arm Right Blood Culture - Preliminary No growth in 48 hours. 04/18/25 10:51 Mucosa - Nasopharyngeal Respiratory Panel (PCR) - Final 04/18/25 10:00 Urine Catheter - Ray Legionella Antigen - Final 04/18/25 10:00 Urine Catheter - Ray Streptococcus pneumoniae Antigen (M - Final 04/18/25 10:51 Mucosa - Nasopharyngeal Coronavirus COVID-19 PCR - Final Radiography Diagnostic Testing: Radiology Impression Chest X-Ray 04/22/25 07:35 IMPRESSION: 1. Increase in the right pleural effusion since the previous study. 2. Can not exclude a superimposed infiltrate particularly in the right upper lobe. 3. Small left pleural effusion. 4. Stable cardiomegaly. Reading Location: [place] [address] Physical Exam Narrative Alert awake oriented x 3 no obvious distress s1s2 no murmurs lungs clear with coarse productive cough. On O2 NC. abdomen soft +++ edema ray + Assessment & Plan Assessment/Plan (1) FERMÍN (acute kidney injury): PLAN: Baseline creatinine is around 1.1. Previous admission creatinine was close to baseline. This admission creatinine is around 2.6-2.8. Renal ultrasound without any hydronephrosis. Urine analysis shows 2+ protein. HbA1c 6.9. Urine PCR 0.9 gm She has significant volume overload in the form of lower extremity edema, repeated pleural effusions. Surprisingly echocardiogram showed ejection fraction normal, presumably this is diastolic dysfunction. However BNP last admission was only around 230. This admission proBNP is only twice the normal limits. Due to proteinuria, renal failure, repeated pleural effusions, sent serology to rule out autoimmune conditions. Lasix drip stopped on Tuesday and added metolazone. Surprisingly urine output actually picked up with metolazone and creatinine is better. Blood pressure about the same. Dr. Garcia had discussion yesterday with patient and family and all agreed that improvement in creatinine a good thing, most likely because Lasix has been stopped. Unable to explain the increase in urine output with less Lasix, possibly she had some Lasix resistance prior to that. It was also agreed that patient needed to be on at least some Lasix for maintenance diuresis, therefore lasix 40mg IV BID added back yesterday, and to continue same dose metolazone. Some confusion with nursing with lasix if patient should or shouldn't be on it, it was stopped this am. I had discussion with patient, her and son regarding patient needing to be on a diuretic. Patient and both stated they feel lasix not working for patient, patient feels it is what made her kidney function worsen and therefore she does not want to take lasix (patient states she was on lasix at home before coming to hospital, even doubled the dose with no improvement in edema and kidney function worsened; she also stated she was on HCTZ in past). We will keep her on metolazone today, she is scheduled for thoracentesis later today. Urine output today so far 1.3L. Patient aware kidney function has improved, SCr 1.38. Potassium and bicarb normal. Labs ordered for am. Assessment and plan reviewed with Dr. Garcia.
[2025-04-22] MEDS: Azithromycin 500 MG in 0.9% Normal Saline (250mL Bag) 250 ML 255 MG IV (11:43)
[2025-04-22 12:40] LABS: Bedside Glucose 141 mg/dL (74-106)
[2025-04-22] MEDS: Amiodarone 150 MG in Dextrose 5%-Water (100mL Bag) 100 ML 600 MG IV BOLUS (13:29)
[2025-04-22] MEDS: Amiodarone 360 MG in Dextrose 5% Viaflo Bag 192.8 ML 33.3 MG CONT INF (13:39)
[2025-04-22 14:08] LABS: Complement C3 127 mg/dL (82-167); Cytoplasmic Ab (C-ANCA) <1:20 titer (Neg:<1:20); Perinuclear Ab (P-ANCA) <1:20 titer (Neg:<1:20)
[2025-04-22] MEDS: Lidocaine 2% (20 ml mdv) 20 ML Vial INFILT (14:08)
--- NOTE | 2025-04-22 14:20 | RAD_ITS ---
EXAM: CHEST INSPIRATION AND EXPIRATION, TWO VIEWS CLINICAL HISTORY: POST RIGHT THORACENTESIS. COMPARISON: EARLIER PORTABLE CHEST DATED 04/22/2025. TECHNIQUE: 2 AP UPRIGHT INSPIRATION EXPIRATION VIEWS OF THE CHEST. FINDINGS: Marked decrease in the right pleural effusion following thoracentesis. No evidence of pneumothorax. Mild cardiac enlargement. Cardiac monitoring leads overlie the chest wall. RAD/Chest Insp/Exp 2 View IMPRESSION: 1. Marked decrease in the right pleural effusion following thoracentesis. 2. No evidence of post thoracentesis pneumothorax. Reading Location: [place] [address]
--- NOTE | 2025-04-22 15:05 | NURSING ---
Patient off unit for thoracentesis at 1345 Patient arrived back on unit at 1450
[2025-04-22 15:08] LABS: ANTINUCLEAR ANTIBODIES DIRECT Negative (Negative); PROEL- A/G Ratio 0.7 (0.7-1.7); PROEL- Albumin 2.7 g/dL (2.9-4.4); PROEL- Alpha-1 Globulin 0.5 g/dL (0.0-0.4); PROEL- Alpha-2 Globulin 1.1 g/dL (0.4-1.0); PROEL- Beta Globulin 0.8 g/dL (0.7-1.3); PROEL- Gamma Globulin 1.4 g/dL (0.4-1.8); PROEL- Globulin, Total 3.7 g/dL (2.2-3.9); PROEL- TOTAL PROTEIN 6.4 g/dL (6.0-8.5); PROEL-M-Spike Comment: g/dL (Not Observed)
[2025-04-22 15:36] LABS: LDH,Body Fluid 114 Units/L (Not Establ.); Protein, Body Fluid 2.6 g/dL (Not Establ.)
[2025-04-22 16:06] LABS: Glucose, Body Fluid 164 mg/dL (Not Establ.)
--- NOTE | 2025-04-22 16:11 | PN.CARD_ITS ---
Subjective Subjective Called about patient's heart rate being up in the 150 range with atrial fibrillation. She also was having thoracentesis today that with through over a liter of fluid from her right pleural space this was the second time she has had this done in the last 72 hours. The patient was reinstituted on amiodarone IV through the standard loading protocol. She also receives diltiazem 30 mg every 6 hours. She is on metoprolol tartrate 25 mg twice daily. Heart rate after reinstitution of amiodarone has dropped down in the 1 teens to 120 range. Blood pressure remains 120/90. Objective Data Vital Signs: Vital Signs Temp Pulse Resp BP Pulse Ox O2 Del Method O2 Flow Rate 96.7 F L 120 H 12 121/92 H 100 High Flow 4 04/22/25 12:23 04/22/25 15:00 04/22/25 15:00 04/22/25 15:00 04/22/25 15:00 04/22/25 15:00 04/22/25 15:00 FiO2 30 04/21/25 15:03 Oxygen Flow Rate (L/min) 4 Oxygen Delivery Method High Flow Weight: 210 lb 1.608 oz Body Mass Index (BMI) 39.6 Intake & Output: Intake and Output for Last 24 Hours 04/20/25 04/21/25 04/22/25 23:59 23:59 23:59 Intake Total 4155 / 4155 6425 / 6425 2528 / 2528 Output Total 2400 / 2400 2450 / 2450 2850 / 2850 Balance 1755 / 1755 3975 / 3975 -322 / -322 Lab / Micro Data Attestation: I reviewed the patient's lab results. 04/22/25 05:40 04/22/25 07:37 Labs: Laboratory Results - last 24 hr 04/19/25 06:20: Total Protein (PEP) 6.4, Albumin (PEP) 2.7 L, Globulin (PEP) 3.7, Albumin/Globulin (PEP) 0.7, Siuis-2-Iarrnfeju 0.5 H, Eadbr-4-Pqwqxrxcn 1.1 H, Beta Globulins 0.8, Gamma Globulins 1.4, M-Qasim Comment:, PEP Note Comment, PEP Interpretation Comment, GIRMA Screen Negative, c-ANCA Antibody <1:20, Atypical p-ANCA 1:20 H, p-ANCA Antibody <1:20, Complement C3 127 04/21/25 16:06: POC Glucose 160 H 04/21/25 21:39: POC Glucose 144 H 04/22/25 05:40: WBC 6.6, RBC 3.06 L, Hgb 8.7 L, Hct 28.4 L, MCV 92.8, MCH 28.4, MCHC 30.6 L, RDW Std Deviation 55.7 H, RDW Coeff of Marcial 16.4 H, Plt Count 183, MPV 9.8, Immature Gran % (Auto) 0.500, Neut % (Auto) 82.0 H, Lymph % (Auto) 8.5 L, [place] % (Auto) 7.3, Eos % (Auto) 1.5, Baso % (Auto) 0.2, Absolute Neuts (auto) 5.4, Absolute Lymphs (auto) 0.56 L, Nucleated RBC % 0, Sodium 144, Potassium 2.9 L, Chloride 118 H, Carbon Dioxide 19.1 L, Anion Gap 7, BUN 58 H, Creatinine 1.03, Estim Creat Clear Calc 42.11 L, Est GFR (MDRD) Non-Af 53 L, BUN/Creatinine Ratio 56.6 H, Glucose 126 H, Calcium 6.3 L* 04/22/25 07:37: Sodium 142, Potassium 4.2, Chloride 110 H, Carbon Dioxide 21.8, Anion Gap 11, BUN 70 H, Creatinine 1.38 H, Estim Creat Clear Calc 31.43 L, Est GFR (MDRD) Non-Af 38 L, BUN/Creatinine Ratio 50.8 H, Glucose 152 H, Calcium 8.3, Lactate Dehydrogenase 231, Total Protein 5.9 04/22/25 09:50: PT 17.5 H, INR 1.4, APTT 28.0 04/22/25 12:21: POC Glucose 141 H 04/22/25 14:10: Fluid WBC 0.043, Fluid Tot Cell Count 0.050 H, Fld Polynuclear WBCs # 0.012, Fld Polynuclear WBCs % 27.9, Fluid Mononuclear WBCs 0.031, Fld Mononuclear WBCs % 72.1, Fluid Glucose 164, Fluid Total Protein 2.6, Fluid LDH 114 Micro: Microbiology 04/16/25 16:16 Sputum, Expectorated/Coughed Gram Stain - Final 04/16/25 16:16 Sputum, Expectorated/Coughed Respiratory Culture - Final Klebsiella pneumoniae sp pneum Rhythm Strip Rhythm Strip: A-fib Rate: 115 Cardiology Labs/Tests 04/22/25 05:40: WBC 6.6, RBC 3.06 L, Hgb 8.7 L, Hct 28.4 L, MCV 92.8, MCH 28.4, MCHC 30.6 L, Plt Count 183, MPV 9.8, Immature Gran % (Auto) 0.500, Neut % (Auto) 82.0 H, Lymph % (Auto) 8.5 L, [place] % (Auto) 7.3, Eos % (Auto) 1.5, Baso % (Auto) 0.2, Absolute Neuts (auto) 5.4, Nucleated RBC % 0, Sodium 144, Potassium 2.9 L, Chloride 118 H, Carbon Dioxide 19.1 L, Anion Gap 7, BUN 58 H, Creatinine 1.03, E st GFR (MDRD) Non-Af 53 L, BUN/Creatinine Ratio 56.6 H, Glucose 126 H, Calcium 6.3 L* 04/22/25 07:37: Sodium 142, Potassium 4.2, Chloride 110 H, Carbon Dioxide 21.8, Anion Gap 11, BUN 70 H, Creatinine 1.38 H, Est GFR (MDRD) Non-Af 38 L, B UN/Creatinine Ratio 50.8 H, Glucose 152 H, Calcium 8.3 04/22/25 09:50: PT 17.5 H, INR 1.4, APTT 28.0 Rhythm: EKG: ECHO: Stress Test: Cardiac Cath: PCI: CT Surgery: Holter monitor: EPS: PPM: CXR: Chest CT Scan: Radiography Diagnostic Testing: Radiology Impression Chest X-Ray 04/22/25 07:35 IMPRESSION: 1. Increase in the right pleural effusion since the previous study. 2. Can not exclude a superimposed infiltrate particularly in the right upper lobe. 3. Small left pleural effusion. 4. Stable cardiomegaly. Reading Location: [place] [address] Thoracentesis Ultrasound 04/22/25 09:09 IMPRESSION: Successful right thoracentesis under ultrasound guidance. The patient tolerated the procedure well. No post thoracentesis fluid is documented. Specimens sent to the laboratory for further testing. Thank you for this referral. Reading Location: [facility] Chest X-Ray 04/22/25 14:20 IMPRESSION: 1. Marked decrease in the right pleural effusion following thoracentesis. 2. No evidence of post thoracentesis pneumothorax. Reading Location: [place] [address] Assessment & Plan Assessment/Plan (1) Atrial fibrillation with rapid ventricular response: PLAN: Patient's heart rate has improved with reinstitution of IV amiodarone. We will switch her over to p.o. amiodarone in combination with her metoprolol and Cardizem for rate control. The patient is not on anticoagulation therapy at this time due to the Eliquis being held for possible temporary catheter placement for dialysis. Her creatinine is improving but given her fluctuating creatinine status I would recommend that when Eliquis is reinstituted it be started at 2.5 mg twice daily. Will continue with attempting rate control with a combination of diltiazem and metoprolol as blood pressure and heart rate will tolerate we will try to wean off the IV amiodarone if we can get her heart rate under better control. PLAN: Plan 1. Continue IV amiodarone for loading dose. 2. Will monitor for alternative rate modulating drugs over the next 24-48 hours. 3. Recommend reinstituting Eliquis 2.5 mg twice daily when felt to be safe from her procedures. Charges/Coding Visit Charges Inpatient E&M: 21667 [facility] L1
[2025-04-22 17:24] LABS: Bedside Glucose 130 mg/dL (74-106)
[2025-04-22 18:35] LABS: Auto B Fluid Analyzer BKGD Ct COUNTS W/IN LIMITS (W/IN LIMITS); Source- Body Fluid THORACENTESIS
[2025-04-22 18:36] LABS: Appearance/Body Fluid CLOUDY; Color/Body Fluid YELLOW
[2025-04-22 18:37] LABS: Red Cell Count/Body Fluid 0.011 10^6/ul
[2025-04-22 18:39] LABS: Body Fluid Total Cells Counted 0.824 10^3/ul; White Blood Count/Body Fluid 0.785 10^3/uL
[2025-04-22 18:40] LABS: Body Fluid Polynuclear WBC % 26.6 %
[2025-04-22 18:41] LABS: Body Fluid Mononuclear WBC # 0.576 10^3/uL; Body Fluid Mononuclear WBC % 73.4 %
[2025-04-22 18:42] LABS: Body Fluid Polynuclear WBC # 0.209 10^3/uL
[2025-04-22 18:44] LABS: Monocytes 3 %
[2025-04-22] MEDS: Amiodarone 360 MG in Dextrose 5% Viaflo Bag 192.8 ML 16.7 MG CONT INF (19:47)
[2025-04-22] MEDS: Atorvastatin Calcium 10 MG Tablet PO (21:35)
[2025-04-22] MEDS: Gabapentin 300 MG Capsule PO (21:35)
[2025-04-22 22:01] LABS: Bedside Glucose 147 mg/dL (74-106)
[2025-04-23] VITALS (26 sets, daily range): BP systolic 105–128; BP diastolic 48–97; PULSE 91–136; RESP 14–28; TEMP 36.1–36.4; O2SAT 93–99; BMI 38.7
[2025-04-23 04:25] LABS: Anion Gap 10 (5-15); BUN 60 mg/dL (4-19); BUN/Creat Ratio 48.2 RATIO (10-20); Calcium,Total 8.7 mg/dL (7.6-11.0); Carbon Dioxide 23.2 mmol/L (21.0-32.0); Chloride 108 mmol/L (98-108); Creatinine, Serum 1.25 mg/dL (0.70-1.20); EST Glomerular Filtration Rate 42 (>60); Glucose 162 mg/dL (70-99); Potassium 3.9 mmol/L (3.3-5.1); Sodium Level 142 mmol/L (133-145)
[2025-04-23] MEDS: 0.9% Saline Lock 10 ML Syringe IV ×2 (05:03→10:07)
[2025-04-23] MEDS: Levothyroxine 100 MCG Tablet PO (05:04)
[2025-04-23] MEDS: dilTIAZem 30 MG Tablet PO ×4 (05:04→23:14)
--- NOTE | 2025-04-23 07:55 | PN.HOSP_ITS ---
Reason for Visit Reason for Visit: Diagnoses Unspecified atrial fibrillation (04/16/25) Unspecified diastolic (congestive) heart failure (04/16/25) Pleural effusion, not elsewhere classified (04/16/25) Acute kidney failure, unspecified (04/16/25) Personal history of other endocrine, nutritional and metabolic disease (04/16/25) Subjective Subjective Patient underwent repeat thoracocentesis the day prior1.5 L of fluid was taken out. Fluid analysis still consistent with transudate. Patient also went into A-fib with RVR and had to be started on amiodarone drip Objective Data Objective Data Vital Signs: Vital Signs Temp Pulse Resp BP Pulse Ox O2 Del Method O2 Flow Rate 97 F L 128 H 22 H 114/84 H 99 Nasal Cannula 2 04/23/25 04:00 04/23/25 07:00 04/23/25 07:00 04/23/25 07:00 04/23/25 07:47 04/23/25 07:47 04/23/25 07:47 FiO2 30 04/21/25 15:03 Oxygen Flow Rate (L/min) 2 Oxygen Delivery Method Nasal Cannula Weight: 93.1 kg Body Mass Index (BMI) 38.7 Intake & Output: Intake and Output for Last 24 Hours 04/21/25 04/22/25 04/23/25 23:59 23:59 23:59 Intake Total 6425 / 6425 2728 / 2728 Output Total 2450 / 2450 3550 / 3550 Balance 3975 / 3975 -822 / -822 Lab / Micro Data 04/22/25 05:40 04/23/25 03:55 Labs: Laboratory Results - last 24 hr 04/19/25 06:20: Total Protein (PEP) 6.4, Albumin (PEP) 2.7 L, Globulin (PEP) 3.7, Albumin/Globulin (PEP) 0.7, Llaag-2-Qzpoouuic 0.5 H, Jxayq-8-Trxwrmlaj 1.1 H, Beta Globulins 0.8, Gamma Globulins 1.4, M-Qasim Comment:, PEP Note Comment, PEP Interpretation Comment, GIRMA Screen Negative, c-ANCA Antibody <1:20, Atypical p-ANCA 1:20 H, p-ANCA Antibody <1:20, Complement C3 127 04/22/25 07:37: Sodium 142, Potassium 4.2, Chloride 110 H, Carbon Dioxide 21.8, Anion Gap 11, BUN 70 H, Creatinine 1.38 H, Estim Creat Clear Calc 31.43 L, Est GFR (MDRD) Non-Af 38 L, BUN/Creatinine Ratio 50.8 H, Glucose 152 H, Calcium 8.3, Lactate Dehydrogenase 231, Total Protein 5.9 04/22/25 09:50: PT 17.5 H, INR 1.4, APTT 28.0 04/22/25 12:21: POC Glucose 141 H 04/22/25 14:10: Fluid Source THORACENTESIS, Fluid Color YELLOW, Fluid Appearance CLOUDY, Fluid WBC 0.785, Fluid RBC 0.011, Fluid Tot Cell Count 0.824 H, Fld Polynuclear WBCs # 0.209, Fld Polynuclear WBCs % 26.6, Fluid Mononuclear WBCs 0.576, Fld Mononuclear WBCs % 73.4, Fluid Neutrophils 35, Fluid Lymphocytes 58, Fluid Monocytes 3, Fluid Macrophages 63, Fld Mesothelial Cells 4, Fl Pathologist Comment May follow, Fluid Glucose 164, Fluid Total Protein 2.6, Fluid LDH 114, Fluid Comment 2 SEE COMMENT 04/22/25 17:06: POC Glucose 130 H 04/22/25 21:33: POC Glucose 147 H 04/23/25 03:55: Sodium 142, Potassium 3.9, Chloride 108, Carbon Dioxide 23.2, Anion Gap 10, BUN 60 H, Creatinine 1.25 H, Estim Creat Clear Calc 34.70 L, Est GFR (MDRD) Non-Af 42 L, BUN/Creatinine Ratio 48.2 H, Glucose 162 H, Calcium 8.7 Micro: Microbiology 04/22/25 14:10 Fluid - Thoracentesis Fluid Gram Stain - Final 04/16/25 16:16 Sputum, Expectorated/Coughed Gram Stain - Final 04/16/25 16:16 Sputum, Expectorated/Coughed Respiratory Culture - Final Klebsiella pneumoniae sp pneum 04/18/25 11:00 Blood Culture (Wb) - Right Wrist Blood Culture - Preliminary No growth in 48 hours. 04/18/25 10:50 Blood Culture (Wb) - Arm Right Blood Culture - Preliminary No growth in 48 hours. 04/18/25 10:51 Mucosa - Nasopharyngeal Respiratory Panel (PCR) - Final 04/18/25 10:00 Urine Catheter - Metzger Legionella Antigen - Final 04/18/25 10:00 Urine Catheter - Metzger Streptococcus pneumoniae Antigen (M - Final 04/18/25 10:51 Mucosa - Nasopharyngeal Coronavirus COVID-19 PCR - Final Radiography Diagnostic Testing: Radiology Impression Chest X-Ray 04/22/25 07:35 IMPRESSION: 1. Increase in the right pleural effusion since the previous study. 2. Can not exclude a superimposed infiltrate particularly in the right upper lobe. 3. Small left pleural effusion. 4. Stable cardiomegaly. Reading Location: [place] [address] Thoracentesis Ultrasound 04/22/25 09:09 IMPRESSION: Successful right thoracentesis under ultrasound guidance. The patient tolerated the procedure well. No post thoracentesis fluid is documented. Specimens sent to the laboratory for further testing. Thank you for this referral. Reading Location: [place] [address] Chest X-Ray 04/22/25 14:20 IMPRESSION: 1. Marked decrease in the right pleural effusion following thoracentesis. 2. No evidence of post thoracentesis pneumothorax. Reading Location: [place] [address] Rhythm Strip Rhythm Strip: A-fib Rate: 115 Physical Exam Narrative GENERAL: Appears fatigued on nasal cannula HEENT: Atraumatic; normocephalic EYES; Anicteric, Normal Conjunctiva NECK; supple, normal thyroid, RESPIRATORY: Diminished to auscultation, CARDIOVASCULAR: Irregular S1-S2 but rate controlled GI: soft, normoactive bowel sounds, : No Renal angle tenderness; EXTREMITIES: Bipedal edema, no clubbing, MUSCULOSKELETAL: no muscle wasting NEURO: Awake; no lateralizing signs. SKIN: No Rash PSYCH; Flat affect Const alert and no apparent distress Constitutional Narrative: On oxygen. No respiratory distress. No conversational dyspnea. HEENT normocephalic and head/scalp atraumatic Eyes Eyes Narrative: No icterus. Glasses. Neck Neck Narrative: JVD. No thyromegaly. No lymphadenopathy. Resp Resp Narrative: Bibasilar crackles. Cardio regular rate and no murmurs GI normal to inspection, nondistended, normoactive bowel sounds and soft to palpation GI Narrative: Obese with pannus. Extremity Extremity Narrative: Bilateral tight lower extremity edema extending proximally upper thighs. Skin Skin Narrative: Chronic venous stasis changes to the lower extremities. Neuro Sensorium / Orientation: awake, alert and oriented to place Psych affect normal Assessment & Plan Assessment/Plan (1) (HFpEF) heart failure with preserved ejection fraction: (2) Pleural effusion: (3) FERMÍN (acute kidney injury): (4) Atrial fibrillation with rapid ventricular response: PLAN: Plan Patient is an 84-year-old lady with past medical history significant for paroxysmal A-fib who presented with progressive shortness of breath and assessment of acute congestive heart failure made admitted to monitored bed for further management 1. Acute on chronic congestive heart failure with preserved ejection fraction ? Patient admitted to monitored bed treatment initiated with strict input and output, daily weights, fluid restriction as well as diuretic therapy with furosemide drip. As part of patient's management 2D echo was ordered on admission demonstrated ejection fraction of 55-60 % and Severe biatrial enlargement. ? Patient is on furosemide drip however response to therapy not impressive. Consult placed to cardiology. Family request ? 04/19/2025; patient is on furosemide drip however appears not to be responding. Creatinine and BUN worsening. ? 04/20/2025; patient BUN and creatinine continues to worsen. Lasix drip held given patient being relatively hypotensive. ? 04/21/2025; patient furosemide discontinued started on Zaroxolyn 2. Large right-sided pleural effusion ? CT of the chest obtained did show Large right pleural effusion with compressive atelectasis. Small left pleural effusion with compressive atelectasis.. An order was given for patient to undergo ultrasound-guided thoracocentesis as part of subsequent evaluation ordered pleural fluid studies including LDH WBC, and glucose levels ? 04/18/2025; patient ultrasound guided thoracocentesis centesis scheduled for 04/19/2025. ? 04/19/2025; patient scheduled to undergo ultrasound-guided paracentesis ? 04/20/2025: Patient underwent ultrasound-guided thoracocentesis on 04/19/2025 with 1350 mL of blood-tinged fluid aspirated sample sent to the lab for analysis.Patient was noted to be dyspneic earlier in the early hours of this a.m. patient placed on supplemental oxygen repeat x-ray ordered which did show reaccumulation of a moderate right pleural effusion again with adjacent right base passive collapse. No pneumothorax identified. Similar appearance of possible small left effusion and basilar atelectasis, passive collapse. ? 04/22/2025; repeat chest x-ray ordered for further evaluation ? 05/20/2025;Patient underwent repeat thoracocentesis the day prior1.5 L of fluid was taken out. Fluid analysis still consistent with transudate. Consult was placed to pulmonary medicine Case discussed with Dr. Wong. 3. Acute kidney injury ? Suspected to be secondary to hypoperfusion from patient congestive heart failure. Creatinine from 01/10/2025 was 1.07 creatinine on admission was 2.31. Patient kidney function actually did worsen with diuresis with creatinine bumping up to 2.62. Subsequently requested for kidney ultrasound and nephrology consultation obtained ? 04/18/2025; patient kidney function did worsen. Subsequently requested nephrology consultation as well as ordered kidney ultrasound. Repeat BMP ordered in a.m. for follow-up ? 04/19/2025; Patient kidney function continues to worsen with BUN of 108 and creatinine of 2.93. Consult has been placed to nephrology today prior renal ultrasound obtained came back unremarkable. Repeat BMP ordered for a.m. ? 04/20/2025; patient kidney function continues to worsen. Family to decide if they want to proceed with temporary dialysis. Had a discussion with patient and son-in-law. Patient is agreeable to temporary dialysis catheter for now.. Consult subsequently placed to general surgery Case discussed with Dr. Michael De Luna ? 04/21/2025; patient creatinine down to 1.98, BUN down to 95 ? 04/22/2025; BMP this morning reviewed. Significant improvement in creatinine which is down to 1.03. Repeat BMP ordered. ? 05/20/2025. Repeat BMP the day prior came back at 1.38, patient creatinine [place] down to 1.25 4. Paroxysmal atrial fibrillation ? Patient went into A-fib with RVR necessitating patient being started on Cardizem drip which is currently being titrated to keep heart rate less than 100 ? 04/20/2025 patient is on apixaban decision was made to hold in anticipation of possible temporary dialysis catheter placement ? 04/21/2025; patient apixaban placed on hold. Started on p.o. Cardizem and metoprolol given her heart rates going up ? 04/22/2025; patient heart rates control still not optimal continues to remain labile ? 04/23/2025; patient went into A-fib with RVR necessitating patient being started on amiodarone drip after bolus was given. Heart rate remains uncontrolled. Cardiology was reconsulted 5. Acute hypoxic respiratory failure ? Secondary to congestive heart failure and large right sided pleural effusion. Patient was placed on supplemental oxygen in addition to bronchodilator treatment. ? 04/18/2025; patient to be assessed for home oxygen prior to this ? 04/20/2025; did ask patient about possible intubation if warranted. Patient is not show how she wants to proceed and wants to have a discussion with the family prior to making a decision ? 04/21/2025; patient had to be placed on noninvasive ventilation via Airvo after going into respiratory distress with significant hypoxia. ? 04/22/2025; patient has been weaned off Airvo now on nasal 6. Hypotension ? 04/20/2025 patient diuretic therapy as well as antihypertensive and antiarrhythmic's?Cardizem and metoprolol held. Resuscitated with IV fluid. An order was given for patient to be transferred to the intensive care unit. Did place an order for PICC line and order written for norepinephrine if patient does not respond to IV fluid resuscitation ? 04/21/2025; patient did respond to IV fluids 7. Essential hypertension ? Patient is on 40 mg of lisinopril held given patient worsening kidney function ? 04/20/2025; patient antihypertensives on hold given patient relatively low blood pressure 8. Hypothyroidism ? Patient is on levothyroxine home dose continued 9. Class II obesity ? Complicating care weight loss advised 10. Degenerative joint disease ? Pain meds as needed 11. Dyslipidemia ?Patient is on statin therapy, continued at home dose 12. Diabetes mellitus type 2 ? Patient is on metformin held on admission placed on Accu-Cheks AC and at bedtime with sliding scale coverage 13. Bilateral lower extremity venous insufficiency Manage patient to follow-up with PCP for outpatient management 14. Suspected pneumonia with Klebsiella pneumonia ? Patient has elevated WBC count with a left shift. CT of the chest obtained the day prior demonstrated infiltrate at the bases of both lungs. Patient subsequently started on ceftriaxone and azithromycin. Also did send for sputum and blood culture ? 04/19/2025; sputum cultures came out positive for Klebsiella pneumonia remains on appropriate antibiotic therapy 15. Physical deconditioning ? Requested for PT OT eval and community mental health social worker to assist with discharge planning 16. DVT prophylaxis ? Patient is on apixaban held prior to patient thoracocentesis resumed subsequently Time spent in the patient's overall evaluation,decision-making process, review of diagnostic data, adjustment of management, discussion with other providers, nursing nursing, ancillary staff as well as patient's family involved in patient's care documentation, 52 Charges/Coding Visit Charges Inpatient E&M: 08861 [facility] Hosp L3
[2025-04-23] MEDS: guaiFENesin 600 MG Tablet PO ×2 (07:58→21:06)
[2025-04-23] MEDS: Metoprolol Tartrate 25 MG Tablet PO ×3 (07:59→18:05)
[2025-04-23] MEDS: Multivitamins,Ther W-Minerals Tablet 1 TABLET PO (07:59)
[2025-04-23] MEDS: Pentoxifylline 400 MG Tablet PO ×3 (08:00→21:07)
[2025-04-23] MEDS: metOLazone 5 MG Tablet PO (08:00)
[2025-04-23 08:27] LABS: Bedside Glucose 146 mg/dL (74-106)
--- NOTE | 2025-04-23 09:03 | PCM.PN.CARD ---
Subjective Subjective Patient sitting up to the bedside in the chair eating breakfast. This is the first solid food that she is taking but she says she is tolerating it without incident. The patient did have an second successful right thoracentesis yesterday. Patient's heart rate has been in the 100?140 range intermittently. She was placed on IV amiodarone yesterday and that drip is discontinued now and we will switch her to p.o. amiodarone. The patient has been in atrial fibrillation at least since November or December 2024 documented. She also has a severely dilated left atrium making it unlikely we would be able to maintain sinus rhythm. She has also been tolerating Eliquis without nuisance bleeding and really had no idea that she was in atrial fibrillation when she was hemodynamically stable and in her home environment doing her routine activities. Objective Data Vital Signs: Vital Signs Temp Pulse Resp BP Pulse Ox O2 Del Method O2 Flow Rate 97.5 F L 136 H 18 118/48 L 98 Room Air 2 04/23/25 08:00 04/23/25 08:00 04/23/25 08:00 04/23/25 08:00 04/23/25 08:00 04/23/25 08:00 04/23/25 07:47 FiO2 30 04/21/25 15:03 Oxygen Flow Rate (L/min) 2 Oxygen Delivery Method Room Air Weight: 205 lb 4.006 oz Body Mass Index (BMI) 38.7 Intake & Output: Intake and Output for Last 24 Hours 04/21/25 04/22/25 04/23/25 23:59 23:59 23:59 Intake Total 6425 / 6425 2728 / 2728 Output Total 2450 / 2450 3550 / 3550 Balance 3975 / 3975 -822 / -822 Lab / Micro Data Attestation: I reviewed the patient's lab results. 04/22/25 05:40 04/23/25 03:55 Labs: Laboratory Results - last 24 hr 04/19/25 06:20: Total Protein (PEP) 6.4, Albumin (PEP) 2.7 L, Globulin (PEP) 3.7, Albumin/Globulin (PEP) 0.7, Bzbjg-8-Zgtbnhhbq 0.5 H, Sqyuy-0-Txbrkxrdy 1.1 H, Beta Globulins 0.8, Gamma Globulins 1.4, M-Qasim Comment:, PEP Note Comment, PEP Interpretation Comment, GIRMA Screen Negative, c-ANCA Antibody <1:20, Atypical p-ANCA 1:20 H, p-ANCA Antibody <1:20, Complement C3 127 04/22/25 07:37: Lactate Dehydrogenase 231, Total Protein 5.9 04/22/25 09:50: PT 17.5 H, INR 1.4, APTT 28.0 04/22/25 12:21: POC Glucose 141 H 04/22/25 14:10: Fluid Source THORACENTESIS, Fluid Color YELLOW, Fluid Appearance CLOUDY, Fluid WBC 0.785, Fluid RBC 0.011, Fluid Tot Cell Count 0.824 H, Fld Polynuclear WBCs # 0.209, Fld Polynuclear WBCs % 26.6, Fluid Mononuclear WBCs 0.576, Fld Mononuclear WBCs % 73.4, Fluid Neutrophils 35, Fluid Lymphocytes 58, Fluid Monocytes 3, Fluid Macrophages 63, Fld Mesothelial Cells 4, Fl Pathologist Comment May follow, Fluid Glucose 164, Fluid Total Protein 2.6, Fluid LDH 114, Fluid Comment 2 SEE COMMENT 04/22/25 17:06: POC Glucose 130 H 04/22/25 21:33: POC Glucose 147 H 04/23/25 03:55: Sodium 142, Potassium 3.9, Chloride 108, Carbon Dioxide 23.2, Anion Gap 10, BUN 60 H, Creatinine 1.25 H, Estim Creat Clear Calc 34.70 L, Est GFR (MDRD) Non-Af 42 L, BUN/Creatinine Ratio 48.2 H, Glucose 162 H, Calcium 8.7 04/23/25 07:50: POC Glucose 146 H Micro: Microbiology 04/22/25 14:10 Fluid - Thoracentesis Fluid Gram Stain - Final 04/16/25 16:16 Sputum, Expectorated/Coughed Gram Stain - Final 04/16/25 16:16 Sputum, Expectorated/Coughed Respiratory Culture - Final Klebsiella pneumoniae sp pneum Rhythm Strip Rhythm Strip: A-fib Rate: 100 Cardiology Labs/Tests 04/22/25 09:50: PT 17.5 H, INR 1.4, APTT 28.0 04/23/25 03:55: Sodium 142, Potassium 3.9, Chloride 108, Carbon Dioxide 23.2, Anion Gap 10, BUN 60 H, Creatinine 1.25 H, Est GFR (MDRD) Non-Af 42 L, BUN/Creatinine Ratio 48.2 H, Glucose 162 H, Calcium 8.7 Rhythm: EKG: ECHO: Stress Test: Cardiac Cath: PCI: CT Surgery: Holter monitor: EPS: PPM: CXR: Chest CT Scan: Radiography Diagnostic Testing: Radiology Impression Thoracentesis Ultrasound 04/22/25 09:09 IMPRESSION: Successful right thoracentesis under ultrasound guidance. The patient tolerated the procedure well. No post thoracentesis fluid is documented. Specimens sent to the laboratory for further testing. Thank you for this referral. Reading Location: [place] [address] Chest X-Ray 04/22/25 14:20 IMPRESSION: 1. Marked decrease in the right pleural effusion following thoracentesis. 2. No evidence of post thoracentesis pneumothorax. Reading Location: [place] [address] Physical Exam Const alert and oriented x3 HEENT normocephalic Eyes EOMs intact bilaterally Neck no JVD Resp normal respiratory effort Auscultation: crackles right base and diminished lung sounds left lower Cardio Rate: tachycardic Rhythm: abnormal rhythm irregularly irregular Heart Sounds: S1 normal and S2 normal; Negative for click, gallop or murmur Extremity Extremity Narrative: Compression devices present on both lower extremities. General Extremity: edema left upper extremity (On the dorsum of the hand distal to the IV insertion site.) Neuro Neuro Narrative: Alert and oriented x 3 Psych mental status grossly normal Assessment & Plan Assessment/Plan (1) (HFpEF) heart failure with preserved ejection fraction: QUALIFIERS: Heart failure chronicity: acute on chronic Qualified Code(s): I50.33 - Acute on chronic diastolic (congestive) heart failure PLAN: Patient required a second thoracentesis during this hospitalization. She had a similar presentation back in December 2024. EF is known to be in the 55-60% range on echocardiogram 04/16/25. Patient is being diuresed she does have acute kidney injury on presentation creatinine has improved since presentation. (2) Atrial fibrillation with rapid ventricular response: PLAN: Patient's heart rate remains elevated in atrial fibrillation around 100-120 bpm. She does appear to be improving clinically. She is now off of IV amiodarone and will be switched to 400 mg twice daily. She is tolerating oral anticoagulation therapy without nuisance bleeding. To better control her heart rate will increase her metoprolol to tartrate to 25 mg Q6 with hold parameters for her blood pressure. It is highly unlikely we would be able to maintain sinus rhythm given the patient's markedly dilated left atrium by echocardiogram and her known duration of atrial fibrillation being around 6 months. PLAN: Plan 1. Continue with oral anticoagulation and rate control for her atrial fibrillation. 2. Continue to monitor the renal function the Eliquis needs to be decreased to 2.5 mg twice daily when it is reinstituted. This is due to her renal function and age of 84. 3. I will continue to follow along with you from a cardiovascular perspective. Charges/Coding Visit Charges Inpatient E&M: 23991 Subs Hosp L2
--- NOTE | 2025-04-23 09:06 | PN.CC_ITS ---
Assessment & Plan Assessment/Plan (1) (HFpEF) heart failure with preserved ejection fraction: (2) Pleural effusion: PLAN: Plan RECOMMENDATIONS: 1. Supplemental oxygen, if needed, to maintain saturations at or above 90%. 2. Continue attempts at volume optimization with diuretics, as tolerated by hemodynamics and renal function. 3. Continue antimicrobials to complete 7 days of therapy. 4. Encourage incentive spirometer use and mobilize patient as tolerated. IMPRESSIONS: 1. Shortness of breath with hypoxemia Most likely related to decompensated heart failure with preserved ejection fraction. In addition, the patient was noted to have a sputum culture which was positive for pansensitive Klebsiella. Accordingly, the patient will be continued on antimicrobials along with supplemental oxygen, if needed, to maintain saturations at or above 90%. Continue attempts at volume optimization with diuretics, as tolerated by hemodynamics and renal function. 2. Recurrent bilateral pleural effusions, right greater than left Most likely secondary to heart failure with preserved ejection fraction. The patient did have a thoracentesis in December 2024, which was transudative in nature. Repeat thoracentesis were completed on April 17 and again on April 22 with pleural fluid from the latter consistent with a transudate once again. Although pleural fluid cytology is pending, I do again suspect that this is related to the patient's underlying cardiac dysfunction. Ultimately, if it is confirmed that the patient has a recurrent effusion related to congestive heart failure that is refractory to the use of diuretics, she may require evaluation by thoracic surgery. 3. Acute kidney injury/paroxysmal atrial fibrillation/hypertension/hypothyroidism/obesity/diabetes mellitus Complicates care, management, recovery and prognosis. Will defer management of renal insufficiency to nephrology. Otherwise, continue supportive care as noted above. This note was generated with [employer] dictation software. It may contain incorrect words, spelling, and punctuation that were not noted in checking the note before signing. Subjective Subjective The patient was seen and examined at the bedside this morning. Events from the last 24 hours have been reviewed. The patient is currently afebrile, hemodynamically stable and maintaining appropriate oxygen saturations on room air. The patient again underwent thoracentesis yesterday with 1.5 L of fluid removed. The patient did report overall improvement in her breathing quality following the procedure. Objective Data Objective Data The patient's most recent lab work, culture data and imaging studies have all been personally reviewed. Vital Signs: Vital Signs Temp Pulse Resp BP Pulse Ox O2 Del Method O2 Flow Rate 97.5 F L 136 H 18 118/48 L 98 Room Air 2 04/23/25 08:00 04/23/25 08:00 04/23/25 08:00 04/23/25 08:00 04/23/25 08:00 04/23/25 08:00 04/23/25 07:47 FiO2 30 04/21/25 15:03 Oxygen Flow Rate (L/min) 2 Oxygen Delivery Method Room Air Weight: 205 lb 4.006 oz Body Mass Index (BMI) 38.7 Intake & Output: Intake and Output for Last 24 Hours 04/21/25 04/22/25 04/23/25 23:59 23:59 23:59 Intake Total 6425 / 6425 2728 / 2728 Output Total 2450 / 2450 3550 / 3550 Balance 3975 / 3975 -822 / -822 Lab / Micro Data Attestation: I reviewed the patient's lab results. 04/22/25 05:40 04/23/25 03:55 Labs: Laboratory Results - last 24 hr 04/19/25 06:20: Total Protein (PEP) 6.4, Albumin (PEP) 2.7 L, Globulin (PEP) 3.7, Albumin/Globulin (PEP) 0.7, Ldcux-0-Lssagdazx 0.5 H, Cgzha-4-Dpsbyzmzu 1.1 H, Beta Globulins 0.8, Gamma Globulins 1.4, M-Qasim Comment:, PEP Note Comment, PEP Interpretation Comment, GIRMA Screen Negative, c-ANCA Antibody <1:20, Atypical p-ANCA 1:20 H, p-ANCA Antibody <1:20, Complement C3 127 04/22/25 07:37: Lactate Dehydrogenase 231, Total Protein 5.9 04/22/25 09:50: PT 17.5 H, INR 1.4, APTT 28.0 04/22/25 12:21: POC Glucose 141 H 04/22/25 14:10: Fluid Source THORACENTESIS, Fluid Color YELLOW, Fluid Appearance CLOUDY, Fluid WBC 0.785, Fluid RBC 0.011, Fluid Tot Cell Count 0.824 H, Fld Polynuclear WBCs # 0.209, Fld Polynuclear WBCs % 26.6, Fluid Mononuclear WBCs 0.576, Fld Mononuclear WBCs % 73.4, Fluid Neutrophils 35, Fluid Lymphocytes 58, Fluid Monocytes 3, Fluid Macrophages 63, Fld Mesothelial Cells 4, Fl Pathologist Comment May follow, Fluid Glucose 164, Fluid Total Protein 2.6, Fluid LDH 114, Fluid Comment 2 SEE COMMENT 04/22/25 17:06: POC Glucose 130 H 04/22/25 21:33: POC Glucose 147 H 04/23/25 03:55: Sodium 142, Potassium 3.9, Chloride 108, Carbon Dioxide 23.2, Anion Gap 10, BUN 60 H, Creatinine 1.25 H, Estim Creat Clear Calc 34.70 L, Est GFR (MDRD) Non-Af 42 L, BUN/Creatinine Ratio 48.2 H, Glucose 162 H, Calcium 8.7 04/23/25 07:50: POC Glucose 146 H Micro: Microbiology 04/22/25 14:10 Fluid - Thoracentesis Fluid Gram Stain - Final 04/16/25 16:16 Sputum, Expectorated/Coughed Gram Stain - Final 04/16/25 16:16 Sputum, Expectorated/Coughed Respiratory Culture - Final Klebsiella pneumoniae sp pneum 04/18/25 11:00 Blood Culture (Wb) - Right Wrist Blood Culture - Preliminary No growth in 48 hours. 04/18/25 10:50 Blood Culture (Wb) - Arm Right Blood Culture - Preliminary No growth in 48 hours. 04/18/25 10:51 Mucosa - Nasopharyngeal Respiratory Panel (PCR) - Final 04/18/25 10:00 Urine Catheter - Metzger Legionella Antigen - Final 04/18/25 10:00 Urine Catheter - Metzger Streptococcus pneumoniae Antigen (M - Final 04/18/25 10:51 Mucosa - Nasopharyngeal Coronavirus COVID-19 PCR - Final Radiography Diagnostic Testing: Radiology Impression Thoracentesis Ultrasound 04/22/25 09:09 IMPRESSION: Successful right thoracentesis under ultrasound guidance. The patient tolerated the procedure well. No post thoracentesis fluid is documented. Specimens sent to the laboratory for further testing. Thank you for this referral. Reading Location: [place] [address] Chest X-Ray 04/22/25 14:20 IMPRESSION: 1. Marked decrease in the right pleural effusion following thoracentesis. 2. No evidence of post thoracentesis pneumothorax. Reading Location: [place] [address] Rhythm Strip Rhythm Strip: A-fib Rate: 115 Physical Exam Const alert, oriented x3 and no apparent distress Constitutional Narrative: Sitting in bedside recliner. Family is present at the bedside. General Appearance: cooperative HEENT normocephalic and head/scalp atraumatic Eyes PERRL, EOMs intact bilaterally and conjunctivae normal Neck supple General: trachea midline Chest inspection of chest normal Resp normal respiratory effort Auscultation: diminished lung sounds Cardio regular rate and regular rhythm GI normal to inspection, nondistended, normoactive bowel sounds Extremity no clubbing, cyanosis or edema Skin no rashes or lesions noted Neuro CN's II-XII intact bilaterally, moves all extremities and no focal motor deficits Psych cooperative and affect normal Charges/Coding Visit Charges Inpatient E&M: 85434 Subs Hosp L2
[2025-04-23] MEDS: Ceftriaxone 2 GM in 0.9% Normal Saline (50mL MB+) 50 ML IV (10:08)
[2025-04-23] MEDS: Amiodarone 200 MG Tablet 400 MG PO ×2 (10:08→21:07)
--- NOTE | 2025-04-23 10:51 | PN.SURG_ITS ---
Objective Data Objective Data Vital Signs: Vital Signs Temp Pulse Resp BP Pulse Ox O2 Del Method O2 Flow Rate 97.5 F L 136 H 18 118/48 L 98 Room Air 2 04/23/25 08:00 04/23/25 08:00 04/23/25 08:00 04/23/25 08:00 04/23/25 08:00 04/23/25 08:00 04/23/25 07:47 FiO2 30 04/21/25 15:03 Oxygen Flow Rate (L/min) 2 Oxygen Delivery Method Room Air Weight: 205 lb 4.006 oz Body Mass Index (BMI) 38.7 Intake & Output: Intake and Output for Last 24 Hours 04/21/25 04/22/25 04/23/25 23:59 23:59 23:59 Intake Total 6425 / 6425 2728 / 2728 200 / 200 Output Total 2450 / 2450 3550 / 3550 Balance 3975 / 3975 -822 / -822 200 / 200 Lab / Micro Data 04/22/25 05:40 04/23/25 03:55 Labs: Laboratory Results - last 24 hr 04/19/25 06:20: Total Protein (PEP) 6.4, Albumin (PEP) 2.7 L, Globulin (PEP) 3.7, Albumin/Globulin (PEP) 0.7, Vkwbj-0-Ftwyqqxpe 0.5 H, Virkh-5-Sixrlumqr 1.1 H, Beta Globulins 0.8, Gamma Globulins 1.4, M-Qasim Comment:, PEP Note Comment, PEP Interpretation Comment, GIRMA Screen Negative, c-ANCA Antibody <1:20, Atypical p-ANCA 1:20 H, p-ANCA Antibody <1:20, Complement C3 127 04/22/25 12:21: POC Glucose 141 H 04/22/25 14:10: Fluid Source THORACENTESIS, Fluid Color YELLOW, Fluid Appearance CLOUDY, Fluid WBC 0.785, Fluid RBC 0.011, Fluid Tot Cell Count 0.824 H, Fld Polynuclear WBCs # 0.209, Fld Polynuclear WBCs % 26.6, Fluid Mononuclear WBCs 0.576, Fld Mononuclear WBCs % 73.4, Fluid Neutrophils 35, Fluid Lymphocytes 58, Fluid Monocytes 3, Fluid Macrophages 63, Fld Mesothelial Cells 4, Fl Pathologist Comment May follow, Fluid Glucose 164, Fluid Total Protein 2.6, Fluid LDH 114, Fluid Comment 2 SEE COMMENT 04/22/25 17:06: POC Glucose 130 H 04/22/25 21:33: POC Glucose 147 H 04/23/25 03:55: Sodium 142, Potassium 3.9, Chloride 108, Carbon Dioxide 23.2, Anion Gap 10, BUN 60 H, Creatinine 1.25 H, Estim Creat Clear Calc 34.70 L, Est GFR (MDRD) Non-Af 42 L, BUN/Creatinine Ratio 48.2 H, Glucose 162 H, Calcium 8.7 04/23/25 07:50: POC Glucose 146 H Micro: Microbiology 04/22/25 14:10 Fluid - Thoracentesis Fluid Gram Stain - Final 04/22/25 14:10 Fluid - Thoracentesis Fluid Body Fluid Culture - Preliminary No growth-Final to follow 04/16/25 16:16 Sputum, Expectorated/Coughed Gram Stain - Final 04/16/25 16:16 Sputum, Expectorated/Coughed Respiratory Culture - Final Klebsiella pneumoniae sp pneum 04/18/25 11:00 Blood Culture (Wb) - Right Wrist Blood Culture - Preliminary No growth in 48 hours. 04/18/25 10:50 Blood Culture (Wb) - Arm Right Blood Culture - Preliminary No growth in 48 hours. 04/18/25 10:51 Mucosa - Nasopharyngeal Respiratory Panel (PCR) - Final 04/18/25 10:00 Urine Catheter - Metzger Legionella Antigen - Final 04/18/25 10:00 Urine Catheter - Metzger Streptococcus pneumoniae Antigen (M - Final 04/18/25 10:51 Mucosa - Nasopharyngeal Coronavirus COVID-19 PCR - Final Radiography Diagnostic Testing: Radiology Impression Thoracentesis Ultrasound 04/22/25 09:09 IMPRESSION: Successful right thoracentesis under ultrasound guidance. The patient tolerated the procedure well. No post thoracentesis fluid is documented. Specimens sent to the laboratory for further testing. Thank you for this referral. [facility]-Ray 04/22/25 14:20 IMPRESSION: 1. Marked decrease in the right pleural effusion following thoracentesis. 2. No evidence of post thoracentesis pneumothorax. Reading Location: [facility] Rhythm Strip Rhythm Strip: A-fib Rate: 115 Assessment & Plan Assessment/Plan (1) FERMÍN (acute kidney injury): PLAN: I am following this patient in conjunction with Dr. Ramos in Dr. De Luna's absence. Patient's creatinine is 1.[address] Bailey, patient will not be requiring dialysis at this time. No dialysis catheter is needed to be placed. We will sign off at this time. Please reach back to out to our service if needed. Thank you Charges/Coding Visit Charges Inpatient E&M: 61071 Subs Hosp L1 (no charge)
--- NOTE | 2025-04-23 11:00 | PCM.PN.REN ---
Subjective Subjective Patient sitting in chair. Denies any shortness of breath. States she feels swelling to legs continues to improve. , daughter and son at bedside Objective Data Objective Data Vital Signs: Vital Signs Temp Pulse Resp BP Pulse Ox O2 Del Method O2 Flow Rate 97.5 F L 136 H 18 118/48 L 98 Room Air 2 04/23/25 08:00 04/23/25 08:00 04/23/25 08:00 04/23/25 08:00 04/23/25 08:00 04/23/25 08:00 04/23/25 07:47 FiO2 30 04/21/25 15:03 Oxygen Flow Rate (L/min) 2 Oxygen Delivery Method Room Air Weight: 93.1 kg Body Mass Index (BMI) 38.7 Intake & Output: Intake and Output for Last 24 Hours 04/21/25 04/22/25 04/23/25 23:59 23:59 23:59 Intake Total 6425 / 6425 2728 / 2728 200 / 200 Output Total 2450 / 2450 3550 / 3550 Balance 3975 / 3975 -822 / -822 200 / 200 Lab / Micro Data 04/22/25 05:40 04/23/25 03:55 Labs: Laboratory Results - last 24 hr 04/19/25 06:20: Total Protein (PEP) 6.4, Albumin (PEP) 2.7 L, Globulin (PEP) 3.7, Albumin/Globulin (PEP) 0.7, Dafhl-5-Xsjiinimw 0.5 H, Adfna-2-Ckzidtehu 1.1 H, Beta Globulins 0.8, Gamma Globulins 1.4, M-Qasim Comment:, PEP Note Comment, PEP Interpretation Comment, GIRMA Screen Negative, c-ANCA Antibody <1:20, Atypical p-ANCA 1:20 H, p-ANCA Antibody <1:20, Complement C3 127 04/22/25 12:21: POC Glucose 141 H 04/22/25 14:10: Fluid Source THORACENTESIS, Fluid Color YELLOW, Fluid Appearance CLOUDY, Fluid WBC 0.785, Fluid RBC 0.011, Fluid Tot Cell Count 0.824 H, Fld Polynuclear WBCs # 0.209, Fld Polynuclear WBCs % 26.6, Fluid Mononuclear WBCs 0.576, Fld Mononuclear WBCs % 73.4, Fluid Neutrophils 35, Fluid Lymphocytes 58, Fluid Monocytes 3, Fluid Macrophages 63, Fld Mesothelial Cells 4, Fl Pathologist Comment May follow, Fluid Glucose 164, Fluid Total Protein 2.6, Fluid LDH 114, Fluid Comment 2 SEE COMMENT 04/22/25 17:06: POC Glucose 130 H 04/22/25 21:33: POC Glucose 147 H 04/23/25 03:55: Sodium 142, Potassium 3.9, Chloride 108, Carbon Dioxide 23.2, Anion Gap 10, BUN 60 H, Creatinine 1.25 H, Estim Creat Clear Calc 34.70 L, Est GFR (MDRD) Non-Af 42 L, BUN/Creatinine Ratio 48.2 H, Glucose 162 H, Calcium 8.7 04/23/25 07:50: POC Glucose 146 H Micro: Microbiology 04/22/25 14:10 Fluid - Thoracentesis Fluid Gram Stain - Final 04/22/25 14:10 Fluid - Thoracentesis Fluid Body Fluid Culture - Preliminary No growth-Final to follow 04/16/25 16:16 Sputum, Expectorated/Coughed Gram Stain - Final 04/16/25 16:16 Sputum, Expectorated/Coughed Respiratory Culture - Final Klebsiella pneumoniae sp pneum 04/18/25 11:00 Blood Culture (Wb) - Right Wrist Blood Culture - Preliminary No growth in 48 hours. 04/18/25 10:50 Blood Culture (Wb) - Arm Right Blood Culture - Preliminary No growth in 48 hours. 04/18/25 10:51 Mucosa - Nasopharyngeal Respiratory Panel (PCR) - Final 04/18/25 10:00 Urine Catheter - Metzger Legionella Antigen - Final 04/18/25 10:00 Urine Catheter - Metzger Streptococcus pneumoniae Antigen (M - Final 04/18/25 10:51 Mucosa - Nasopharyngeal Coronavirus COVID-19 PCR - Final Radiography Diagnostic Testing: Radiology Impression Thoracentesis Ultrasound 04/22/25 09:09 IMPRESSION: Successful right thoracentesis under ultrasound guidance. The patient tolerated the procedure well. No post thoracentesis fluid is documented. Specimens sent to the laboratory for further testing. Thank you for this referral. Reading Location: [place] [address] Chest X-Ray 04/22/25 14:20 IMPRESSION: 1. Marked decrease in the right pleural effusion following thoracentesis. 2. No evidence of post thoracentesis pneumothorax. Reading Location: [place] [address] Rhythm Strip Rhythm Strip: A-fib Rate: 115 Physical Exam Narrative Alert awake oriented x 3 no obvious distress s1s2 no murmurs lungs clear anteriorly and posteriorly. On room air abdomen soft +++ edema, improving Assessment & Plan Assessment/Plan (1) FERMÍN (acute kidney injury): PLAN: Baseline creatinine is around 1.1. Previous admission creatinine was close to baseline. This admission creatinine is around 2.6-2.8. Renal ultrasound without any hydronephrosis. Urine analysis shows 2+ protein. HbA1c 6.9. Urine PCR 0.9 gm She has significant volume overload in the form of lower extremity edema, repeated pleural effusions. Surprisingly echocardiogram showed ejection fraction normal, presumably this is diastolic dysfunction. However BNP last admission was only around 230. This admission proBNP is only twice the normal limits. Due to proteinuria, renal failure, repeated pleural effusions, sent serology to rule out autoimmune conditions. Lasix drip stopped on Tuesday and added metolazone. Urine output actually picked up with metolazone and creatinine is better. Blood pressure about the same. Patient is currently on metolazone 5 mg daily. Intermittent twice daily Lasix was stopped on Tuesday. Urine output picking up, 2 L urine output documented for yesterday. Patient also had thoracentesis 1.5 L fluid removed yesterday. Weights are down. Kidney function stable, today creatinine 1.25/BUN 60, this is possibly baseline for patient. Serum creatinine peak was 2.9 on April 19, BUN was 108. We will keep her on metolazone today. Potassium and bicarb normal. Labs ordered for am. Discussed with patient and her family today importance of daily weights. low sodium diet and restricting fluids to around 1.5 to no more than 2 L/day once at home. Patient also to follow-up with nephrology at discharge. Assessment and plan reviewed with Dr. Garcia.
[2025-04-23] MEDS: Insulin Lispro 100 UNIT/ML INSULN.PEN SC (12:11)
[2025-04-23 12:22] LABS: Bedside Glucose 165 mg/dL (74-106)
[2025-04-23 16:58] LABS: Bedside Glucose 128 mg/dL (74-106)
[2025-04-23] MEDS: Gabapentin 300 MG Capsule PO (21:05)
[2025-04-23] MEDS: Atorvastatin Calcium 10 MG Tablet PO (21:06)
[2025-04-23 21:30] LABS: Bedside Glucose 125 mg/dL (74-106)
[2025-04-24] VITALS (22 sets, daily range): BP systolic 98–128; BP diastolic 62–89; PULSE 98–143; RESP 16–29; TEMP 36.2–36.8; O2SAT 94–98; BMI 39.2
[2025-04-24] MEDS: Metoprolol Tartrate 25 MG Tablet PO
[2025-04-24] MEDS: guaiFENesin 10 ML UDC (200MG/10ML) PO (04:03)
[2025-04-24] MEDS: Levothyroxine 100 MCG Tablet PO (06:08)
[2025-04-24] MEDS: dilTIAZem 30 MG Tablet PO (06:09)
--- NOTE | 2025-04-24 07:06 | PN.HOSP_ITS ---
Reason for Visit Reason for Visit: Diagnoses Unspecified atrial fibrillation (04/16/25) Unspecified diastolic (congestive) heart failure (04/16/25) Acute on chronic diastolic (congestive) heart failure (04/16/25) Pleural effusion, not elsewhere classified (04/16/25) Acute kidney failure, unspecified (04/16/25) Personal history of other endocrine, nutritional and metabolic disease (04/16/25) Subjective Subjective Patient was switched from IV amiodarone to p.o. amiodarone the day prior. Heart rate control still not optimal. Had a discussion with patient's daughter and son plan is to repeat imaging studies and if there is reaccumulation of the fluid consideration will be given to patient being transferred to a tertiary care center for possible pleurodesis Objective Data Objective Data Vital Signs: Vital Signs Temp Pulse Resp BP Pulse Ox O2 Del Method O2 Flow Rate 97.6 F L 111 H 20 H 112/88 H 96 Room Air 2 04/24/25 04:00 04/24/25 07:00 04/24/25 07:00 04/24/25 07:00 04/24/25 07:00 04/24/25 07:00 04/23/25 07:47 FiO2 30 04/21/25 15:03 Oxygen Flow Rate (L/min) 2 Oxygen Delivery Method Room Air Weight: 94.3 kg Body Mass Index (BMI) 39.2 Intake & Output: Intake and Output for Last 24 Hours 04/22/25 04/23/25 04/24/25 23:59 23:59 23:59 Intake Total 2728 / 2728 490 / 490 Output Total 3550 / 3550 1250 / 1750 700 / 700 Balance -822 / -822 -760 / -1260 -700 / -700 Lab / Micro Data 04/22/25 05:40 04/23/25 03:55 Labs: Laboratory Results - last 24 hr 04/23/25 07:50: POC Glucose 146 H 04/23/25 12:04: POC Glucose 165 H 04/23/25 16:31: POC Glucose 128 H 04/23/25 21:04: POC Glucose 125 H Micro: Microbiology 04/18/25 10:50 Blood Culture (Wb) - Arm Right Blood Culture - Final No growth in 5 days. 04/18/25 11:00 Blood Culture (Wb) - Right Wrist Blood Culture - Final No growth in 5 days. 04/22/25 14:10 Fluid - Thoracentesis Fluid Gram Stain - Final 04/22/25 14:10 Fluid - Thoracentesis Fluid Body Fluid Culture - Preliminary No growth-Final to follow 04/16/25 16:16 Sputum, Expectorated/Coughed Gram Stain - Final 04/16/25 16:16 Sputum, Expectorated/Coughed Respiratory Culture - Final Klebsiella pneumoniae sp pneum 04/18/25 10:51 Mucosa - Nasopharyngeal Respiratory Panel (PCR) - Final 04/18/25 10:00 Urine Catheter - Metzger Legionella Antigen - Final 04/18/25 10:00 Urine Catheter - Metzger Streptococcus pneumoniae Antigen (M - Final 04/18/25 10:51 Mucosa - Nasopharyngeal Coronavirus COVID-19 PCR - Final Rhythm Strip Rhythm Strip: A-fib Rate: 115 Physical Exam Narrative GENERAL: Appears fatigued on nasal cannula HEENT: Atraumatic; normocephalic EYES; Anicteric, Normal Conjunctiva NECK; supple, normal thyroid, RESPIRATORY: Diminished to auscultation, CARDIOVASCULAR: Irregular S1-S2 but rate controlled GI: soft, normoactive bowel sounds, : No Renal angle tenderness; EXTREMITIES: Bipedal edema, no clubbing, MUSCULOSKELETAL: no muscle wasting NEURO: Awake; no lateralizing signs. SKIN: No Rash PSYCH; Flat affect Assessment & Plan Assessment/Plan (1) (HFpEF) heart failure with preserved ejection fraction: QUALIFIERS: Heart failure chronicity: acute on chronic Qualified Code(s): I50.33 - Acute on chronic diastolic (congestive) heart failure (2) Pleural effusion: (3) FERMÍN (acute kidney injury): (4) Atrial fibrillation with rapid ventricular response: PLAN: Plan Patient is an 84-year-old lady with past medical history significant for paroxysmal A-fib who presented with progressive shortness of breath and assessment of acute congestive heart failure made admitted to monitored bed for further management 1. Acute on chronic congestive heart failure with preserved ejection fraction ? Patient admitted to monitored bed treatment initiated with strict input and output, daily weights, fluid restriction as well as diuretic therapy with furosemide drip. As part of patient's management 2D echo was ordered on admission demonstrated ejection fraction of 55-60 % and Severe biatrial enlargement. ? Patient is on furosemide drip however response to therapy not impressive. Consult placed to cardiology. Family request ? 04/19/2025; patient is on furosemide drip however appears not to be responding. Creatinine and BUN worsening. ? 04/20/2025; patient BUN and creatinine continues to worsen. Lasix drip held given patient being relatively hypotensive. ? 04/21/2025; patient furosemide discontinued started on Zaroxolyn 2. Large right-sided pleural effusion ? CT of the chest obtained did show Large right pleural effusion with compressive atelectasis. Small left pleural effusion with compressive atelectasis.. An order was given for patient to undergo ultrasound-guided thoracocentesis as part of subsequent evaluation ordered pleural fluid studies including LDH WBC, and glucose levels ? 04/18/2025; patient ultrasound guided thoracocentesis centesis scheduled for 04/19/2025. ? 04/19/2025; patient scheduled to undergo ultrasound-guided paracentesis ? 04/20/2025: Patient underwent ultrasound-guided thoracocentesis on 04/19/2025 with 1350 mL of blood-tinged fluid aspirated sample sent to the lab for analysis.Patient was noted to be dyspneic earlier in the early hours of this a.m. patient placed on supplemental oxygen repeat x-ray ordered which did show reaccumulation of a moderate right pleural effusion again with adjacent right base passive collapse. No pneumothorax identified. Similar appearance of possible small left effusion and basilar atelectasis, passive collapse. ? 04/22/2025; repeat chest x-ray ordered for further evaluation ? 04/23/2025;Patient underwent repeat thoracocentesis the day prior1.5 L of fluid was taken out. Fluid analysis still consistent with transudate. Consult was placed to pulmonary medicine Case discussed with Dr. Wong. ? 04/24/2025Had a discussion with patient's daughter and son plan is to repeat imaging studies and if there is reaccumulation of the fluid consideration will be given to patient being transferred to a tertiary care center for possible pleurodesis 3. Acute kidney injury ? Suspected to be secondary to hypoperfusion from patient congestive heart failure. Creatinine from 01/10/2025 was 1.07 creatinine on admission was 2.31. Patient kidney function actually did worsen with diuresis with creatinine bumping up to 2.62. Subsequently requested for kidney ultrasound and nephrology consultation obtained ? 04/18/2025; patient kidney function did worsen. Subsequently requested nephrology consultation as well as ordered kidney ultrasound. Repeat BMP ordered in a.m. for follow-up ? 04/19/2025; Patient kidney function continues to worsen with BUN of 108 and creatinine of 2.93. Consult has been placed to nephrology today prior renal ultrasound obtained came back unremarkable. Repeat BMP ordered for a.m. ? 04/20/2025; patient kidney function continues to worsen. Family to decide if they want to proceed with temporary dialysis. Had a discussion with patient and son-in-law. Patient is agreeable to temporary dialysis catheter for now.. Consult subsequently placed to general surgery Case discussed with Dr. Michael De Luna ? 04/21/2025; patient creatinine down to 1.98, BUN down to 95 ? 04/22/2025; BMP this morning reviewed. Significant improvement in creatinine which is down to 1.03. Repeat BMP ordered. ? 05/20/2025. Repeat BMP the day prior came back at 1.38, patient creatinine [place] down to 1.25 4. Paroxysmal atrial fibrillation ? Patient went into A-fib with RVR necessitating patient being started on Cardizem drip which is currently being titrated to keep heart rate less than 100 ? 04/20/2025 patient is on apixaban decision was made to hold in anticipation of possible temporary dialysis catheter placement ? 04/21/2025; patient apixaban placed on hold. Started on p.o. Cardizem and metoprolol given her heart rates going up ? 04/22/2025; patient heart rates control still not optimal continues to remain labile ? 04/23/2025; patient went into A-fib with RVR necessitating patient being started on amiodarone drip after bolus was given. Heart rate remains uncontrolled. Cardiology was reconsulted ? 04/24/2025 7Patient was switched from IV amiodarone to p.o. amiodarone the day prior. Heart rate control still not optimal. 5. Acute hypoxic respiratory failure ? Secondary to congestive heart failure and large right sided pleural effusion. Patient was placed on supplemental oxygen in addition to bronchodilator treatment. ? 04/18/2025; patient to be assessed for home oxygen prior to this ? 04/20/2025; did ask patient about possible intubation if warranted. Patient is not show how she wants to proceed and wants to have a discussion with the family prior to making a decision ? 04/21/2025; patient had to be placed on noninvasive ventilation via Airvo after going into respiratory distress with significant hypoxia. ? 04/22/2025; patient has been weaned off Airvo now on nasal 6. Hypotension ? 04/20/2025 patient diuretic therapy as well as antihypertensive and antiarrhythmic's?Cardizem and metoprolol held. Resuscitated with IV fluid. An order was given for patient to be transferred to the intensive care unit. Did place an order for PICC line and order written for norepinephrine if patient does not respond to IV fluid resuscitation ? 04/21/2025; patient did respond to IV fluids 7. Essential hypertension ? Patient is on 40 mg of lisinopril held given patient worsening kidney function ? 04/20/2025; patient antihypertensives on hold given patient relatively low blood pressure 8. Hypothyroidism ? Patient is on levothyroxine home dose continued 9. Class II obesity ? Complicating care weight loss advised 10. Degenerative joint disease ? Pain meds as needed 11. Dyslipidemia ?Patient is on statin therapy, continued at home dose 12. Diabetes mellitus type 2 ? Patient is on metformin held on admission placed on Accu-Cheks AC and at bedtime with sliding scale coverage 13. Bilateral lower extremity venous insufficiency Manage patient to follow-up with PCP for outpatient management 14. Suspected pneumonia with Klebsiella pneumonia ? Patient has elevated WBC count with a left shift. CT of the chest obtained the day prior demonstrated infiltrate at the bases of both lungs. Patient subsequently started on ceftriaxone and azithromycin. Also did send for sputum and blood culture ? 04/19/2025; sputum cultures came out positive for Klebsiella pneumonia remains on appropriate antibiotic therapy 15. Physical deconditioning ? Requested for PT OT eval and delinquency prevention social worker to assist with discharge planning 16. DVT prophylaxis ? Patient is on apixaban held prior to patient thoracocentesis resumed subsequently Time spent in the patient's overall evaluation,decision-making process, review of diagnostic data, adjustment of management, discussion with other providers, nursing nursing, ancillary staff as well as patient's family involved in patient's care documentation, 38 Charges/Coding Visit Charges Inpatient E&M: 52028 Subs Hosp L2
[2025-04-24] MEDS: Multivitamins,Ther W-Minerals Tablet 1 TABLET PO (08:04)
--- NOTE | 2025-04-24 10:12 | CASEMGMT ---
Tertiary Insurance review for hospitals In-network with [employer] insurance if transfer is recommended is as follows: [facility], [facility], [facility], [facility], [facility], , [place], [facility], [facility], and [place]. Reba Franco, Discharge Planning Asst.
[2025-04-24 10:21] LABS: Bedside Glucose 128 mg/dL (74-106)
[2025-04-24] MEDS: Ceftriaxone 2 GM in 0.9% Normal Saline (50mL MB+) 50 ML IV (10:26)
[2025-04-24] MEDS: 0.9% Saline Lock 10 ML Syringe IV (10:27)
[2025-04-24] MEDS: Amiodarone 200 MG Tablet 400 MG PO ×2 (10:28→21:37)
[2025-04-24] MEDS: guaiFENesin 600 MG Tablet PO ×2 (10:28→21:37)
[2025-04-24] MEDS: metOLazone 5 MG Tablet PO (10:28)
--- NOTE | 2025-04-24 10:37 | PCM.PN.CARD ---
Subjective Subjective Patient's heart rate continues to be elevated. She remains in atrial fibrillation and has been in atrial fibrillation since December 2024 documented. Historically in her home environment she was asymptomatic prior to this infectious process. Objective Data Vital Signs: Vital Signs Temp Pulse Resp BP Pulse Ox O2 Del Method O2 Flow Rate 97.6 F L 111 H 20 H 112/88 H 97 Room Air 2 04/24/25 04:00 04/24/25 07:00 04/24/25 07:00 04/24/25 07:00 04/24/25 07:55 04/24/25 07:55 04/23/25 07:47 FiO2 30 04/21/25 15:03 Oxygen Flow Rate (L/min) 2 Oxygen Delivery Method Room Air Weight: 207 lb 14.334 oz Body Mass Index (BMI) 39.2 Intake & Output: Intake and Output for Last 24 Hours 04/22/25 04/23/25 04/24/25 23:59 23:59 23:59 Intake Total 2728 / 2728 490 / 490 Output Total 3550 / 3550 1250 / 1750 700 / 700 Balance -822 / -822 -760 / -1260 -700 / -700 Lab / Micro Data 04/22/25 05:40 04/23/25 03:55 Labs: Laboratory Results - last 24 hr 04/23/25 12:04: POC Glucose 165 H 04/23/25 16:31: POC Glucose 128 H 04/23/25 21:04: POC Glucose 125 H 04/24/25 08:05: POC Glucose 128 H Micro: Microbiology 04/22/25 14:10 Fluid - Thoracentesis Fluid Gram Stain - Final 04/22/25 14:10 Fluid - Thoracentesis Fluid Body Fluid Culture - Preliminary No growth-Final to follow 04/18/25 10:50 Blood Culture (Wb) - Arm Right Blood Culture - Final No growth in 5 days. 04/18/25 11:00 Blood Culture (Wb) - Right Wrist Blood Culture - Final No growth in 5 days. Rhythm Strip Rhythm Strip: A-fib Rate: 125 Cardiology Labs/Tests Rhythm: EKG: ECHO: Stress Test: Cardiac Cath: PCI: CT Surgery: Holter monitor: EPS: PPM: CXR: Chest CT Scan: Physical Exam Const alert and oriented x3 HEENT normocephalic Eyes EOMs intact bilaterally Resp normal respiratory effort Auscultation: diminished lung sounds bilateral lower Cardio Rate: tachycardic Rhythm: abnormal rhythm irregularly irregular Heart Sounds: S1 normal and S2 normal; Negative for click, gallop or murmur Extremity General Extremity: edema bilateral lower extremity Details: trace Neuro Neuro Narrative: Alert and oriented x 3 Psych mental status grossly normal Assessment & Plan Assessment/Plan (1) (HFpEF) heart failure with preserved ejection fraction: QUALIFIERS: Heart failure chronicity: acute on chronic Qualified Code(s): I50.33 - Acute on chronic diastolic (congestive) heart failure PLAN: Patient carries a history of heart failure preserved ejection fraction. Since admission she has had 2 thoracenteses done. She actually has been diagnosed with Klebsiella pneumonia and he but the thoracentesis fluid did not grow any bacteria. Her blood cultures have been negative as well. The patient continues to be tachycardic in atrial fibrillation. We will continue to adjust medical therapy to try and control her heart rate. (2) FERMÍN (acute kidney injury): PLAN: Creatinine has dropped back to 1.25 today. This is managed by the primary service. (3) Atrial fibrillation with rapid ventricular response: PLAN: The patient has a history of a dilated left atrium and is unlikely would be able to maintain sinus rhythm with cardioversion given the fact she has been in it for going on 6 months now. Will continue to try and rate control her and she should be reinstituted on Eliquis when appropriate. Indolar creatinine is improved to 1.25 today the fact it has been vacillating and labile I would not recommend that we decrease her Eliquis dose to 2.5 mg twice daily when it is reinstituted. Will increase Cardizem to 60 mg every 6 hours and metoprolol to 50 mg every 6 hours. PLAN: Plan 1. Will add additional diltiazem and metoprolol for better rate control. 2. Will need to monitor the patient closely for blood pressure response to the increase Cardizem and metoprolol. 3. Dr. Verduzco will be available tomorrow if further assistance is needed. 4. Long-term plan would be to treat the patient with Eliquis at 2.5 mg twice daily and rate control her atrial fibrillation. If she is symptomatic or unwilling or unable to control her rate would have to consider EP evaluation for possible ablation and pacer implantation. 5. Patient should follow-up in the [facility] 7 to 10 days after discharge.
[2025-04-24] MEDS: Metoprolol Tartrate 50 MG Tablet PO ×2 (12:41→17:38)
[2025-04-24] MEDS: dilTIAZem 60 MG Tablet PO ×2 (12:41→17:38)
--- NOTE | 2025-04-24 12:57 | PN.CC_ITS ---
Objective Data Objective Data Vital Signs: Vital Signs Last response 3 Temperature 36.6 C 04/24/25 08:00 Temperature Source Temporal 04/24/25 08:00 Pulse Rate 141 H 04/24/25 12:41 Pulse Strength Weak (1+) 04/23/25 21:41 Respiratory Rate 29 H 04/24/25 11:00 Respiratory Effort Normal 04/24/25 04:00 Respiratory Depth Normal 04/24/25 04:00 Respiratory Pattern Normal 04/24/25 04:00 Blood Pressure 115/71 04/24/25 11:00 Blood Pressure Mean 85 04/24/25 11:00 Blood Pressure Source Monitor 04/24/25 11:00 Blood Pressure Position Semi-Fowlers 04/24/25 11:00 Blood Pressure Location Left Arm 04/24/25 11:00 Pulse Ox 97 04/24/25 11:00 Oxygen Delivery Method Room Air 04/24/25 11:00 Oxygen Flow Rate (L/min) 2 04/23/25 07:47 Fraction of Inspired Oxygen (FIO2) 30 04/21/25 15:03 I&O: I&O Last 24 Hours 3 04/23/25 04/24/25 04/24/25 23:59 11:59 23:59 Intake Total 240 / 490 Output Total 1250 / 1750 700 / 700 Balance -1010 / -1260 -700 / -700 I&O: Total Stay 3 04/16/25 11:09 thru 04/24/25 06:30 Intake Total 31763.89 Output Total 37592 Balance 3004.89 Current Meds Ordered / Administered: Current meds ordered / Administered 3 Generic Name Dose Route Start Last Admin Trade Name Markq PRN Reason Stop Dose Admin Acetaminophen 650 mg 04/16/25 14:36 04/18/25 21:42 Acetaminophen 325 Mg Tablet PO 650 mg Q6H PRN PRN Administration Pain 1-10 Or Fever >100.7 Albuterol Sulfate 2.5 mg 04/17/25 11:22 04/18/25 08:35 Albuterol 2.5 Mg/3 Ml Vial.Neb. INHALATION 2.5 mg Q2H PRN PRN Administration SOB &/OR WHEEZING Amiodarone HCl 400 mg 04/23/25 10:00 04/24/25 10:28 Amiodarone 200 Mg Tablet PO 400 mg BID SERG Administration Atorvastatin Calcium 10 mg 04/16/25 22:00 04/23/25 21:06 Atorvastatin Calcium 10 Mg Tablet PO 10 mg QHS SERG Administration Diltiazem HCl 60 mg 04/24/25 12:00 04/24/25 12:41 Diltiazem 60 Mg Tablet PO 60 mg Q6 SERG Administration Protocol Gabapentin 300 mg 04/17/25 22:00 04/23/25 21:05 Gabapentin 300 Mg Capsule PO 300 mg QHS SERG Administration Glucagon 1 mg 04/16/25 14:36 Glucagon 1 Mg/Ml Syringe IM X1 PRN HYPOGLYCEMIA Protocol Guaifenesin 600 mg 04/17/25 00:35 04/24/25 10:28 Guaifenesin 600 Mg Tablet PO 600 mg BID SERG Administration Guaifenesin 10 ml 04/24/25 03:54 04/24/25 04:03 Guaifenesin 10 Ml Udc (200mg/10ml) PO 10 ml Q4H PRN PRN Administration COUGH/CONGESTION Dextrose 250 mls @ 0 mls/hr 04/16/25 14:36 Dextrose 10%-Water IV .Q0M PRN HYPOGLYCEMIA Protocol As Directed Ceftriaxone Sodium 2 gm/ 50 mls @ 100 mls/hr 04/18/25 10:00 04/24/25 10:26 Sodium Chloride IV 04/25/25 10:01 100 mls/hr Q24 SERG Administration Sodium Chloride 250 mls @ 15 mls/hr 04/19/25 11:21 IV .[id number] PRN Saline Flush Sodium Chloride 250 mls @ 15 mls/hr 04/19/25 11:21 IV .[id number] PRN Additional IVPB Infusion Insulin Human Lispro 0 unit 04/16/25 16:00 04/24/25 12:33 Insulin Lispro 100 Unit/Ml Insuln.Pen SC Not Given ACHS SERG Protocol Levothyroxine Sodium 100 mcg 04/17/25 06:00 04/24/25 06:08 Levothyroxine 100 Mcg Tablet PO 100 mcg DAILY@0600 SERG Administration Loratadine 10 mg 04/16/25 15:10 Loratadine 10 Mg Tablet PO DAILY PRN allergy symptoms Metolazone 5 mg 04/19/25 12:00 04/24/25 10:28 Metolazone 5 Mg Tablet PO 5 mg DAILY SERG Administration Protocol Metoprolol Tartrate 50 mg 04/24/25 12:00 04/24/25 12:41 Metoprolol Tartrate 50 Mg Tablet PO 50 mg Q6 SERG Administration Protocol Multivitamins/Minerals 1 tablet 04/17/25 08:00 04/24/25 08:04 Multivitamins,Ther W-Minerals Tablet PO 1 tablet BREAKFAST SERG Administration Ondansetron HCl 4 mg 04/16/25 20:42 04/19/25 11:16 Ondansetron 4 Mg/2 Ml Vial IV 4 mg Q6H PRN PRN Administration NAUSEA/VOMITING Pentoxifylline 400 mg 04/16/25 14:36 04/24/25 06:10 Pentoxifylline 400 Mg Tablet PO Not Given TID SERG Polyethylene Glycol 17 gm 04/23/25 03:51 Polyethylene Glycol 3350 17 Gm Packet PO DAILY PRN PRN CONSTIPATION Sodium Chloride 10 - 40 ml 04/16/25 14:43 04/24/25 10:27 0.9% Saline Lock 10 Ml Syringe IV 10 ml UD PRN Administration SALINE FLUSH Sodium Chloride 10 - 40 ml 04/19/25 11:21 0.9% Saline Lock 10 Ml Syringe IV UD PRN SALINE FLUSH Lab / Micro Data 04/22/25 05:40 04/23/25 03:55 Labs: Laboratory Results - last 24 hr 04/23/25 16:31: POC Glucose 128 H 04/23/25 21:04: POC Glucose 125 H 04/24/25 08:05: POC Glucose 128 H Micro: Microbiology 04/22/25 14:10 Fluid - Thoracentesis Fluid Gram Stain - Final 04/22/25 14:10 Fluid - Thoracentesis Fluid Body Fluid Culture - Preliminary No growth-Final to follow 04/22/25 14:10 Fluid - Thoracentesis Fluid Anaerobic Culture - Preliminary No growth in 48 hours. 04/18/25 10:50 Blood Culture (Wb) - Arm Right Blood Culture - Final No growth in 5 days. 04/18/25 11:00 Blood Culture (Wb) - Right Wrist Blood Culture - Final No growth in 5 days. Rhythm Strip Rhythm Strip: A-fib Rate: 125 Assessment and Plan . Assessment and plan: HPI Patient seen and examined Chart and data reviewed She is breathing RA comfortably at rest HR 100-120 BPM, irregular No new lab data EXAM GEN NAD VS as above HEENT o/p clear NECK obese COR irreg CHEST diminished ABD soft EXT minimal edema SKIN w/d KAMILA NF ASSESSMENT/PLAN 1. Dyspnea / hypoxemia 2. Decompensated CHF 3. AF w/ tachycardia 4. DM / obesity -supplemental O2 as needed -(-) fluid balance -HR control -consider stopping ABX -A/C deferred to cardiology -would repeat chemistry and NT-p-BNP Critical Care Time: 50 minutes The entirety of this encounter was done via Telemedicine
--- NOTE | 2025-04-24 13:42 | NS ---
04/24/25: Rounded in ICU this morning. Pt has 5 unopened cartons of Glucerna in her room. Will change Glucerna order for 240mL 1x daily with breakfast. Mary Juan RDN, LD
[2025-04-24] MEDS: Pentoxifylline 400 MG Tablet PO ×2 (15:18→21:37)
[2025-04-24 15:27] LABS: Absolute Lymphocyte Count 0.86 X10^3/uL (0.83-4.51); Absolute Neutrophil Count 9.6 X10^3/uL (2.0-7.7); Basophil# 0.05 X10^3/uL; Basophil% 0.4 % (0-1); Eosinophil# 0.32 X10^3/uL; Eosinophils% 2.7 % (0-5); Hematocrit 33.1 % (37-47); Hemoglobin 10.3 g/dL (12.0-15.0); Lymphocyte # 0.86 X10^3/ul (0.83-4.51); Lymphocyte % 7.3 % (19-41); Mean Corp Hgb Conc 31.1 g/dL (32-36); Mean Corpuscular Hgb 27.6 pg (27.0-32.0); Mean Corpuscular Volume 88.7 fL (81-99); Mean Platelet Vol. 9.9 fl (6.2-12.0); Monocyte# 0.83 X10^3/uL; Monocyte% 7.1 % (0-10); NRBC Flagged by Analyzer 0.2 % (0-5); Neutrophil # 9.56 X10^3/uL (2.7-7.7); Neutrophil % 81.6 % (47-70); Platelet Count 299 K/mm3 (150-450); RBC Distribution Width CV 16.2 % (11.6-14.6); RBC Distribution Width SD 52.6 fl (35.1-43.9); Red Blood Count 3.73 M/mm3 (4.2-5.4); White Blood Count 11.7 K/mm3 (4.4-11.0)
[2025-04-24 15:30] LABS: Anion Gap 9 (5-15); BUN 48 mg/dL (4-19); BUN/Creat Ratio 41.7 RATIO (10-20); Calcium,Total 8.6 mg/dL (7.6-11.0); Carbon Dioxide 24.6 mmol/L (21.0-32.0); Chloride 107 mmol/L (98-108); Creatinine, Serum 1.14 mg/dL (0.70-1.20); EST Glomerular Filtration Rate 47 (>60); Estimated Creatinine Clearance 37.82 ml/min (50-250); Glucose 169 mg/dL (70-99); Magnesium 2.1 mg/dL (1.5-2.2); Phosphorus 2.2 mg/dL (2.7-4.5); Potassium 3.9 mmol/L (3.3-5.1); Sodium Level 140 mmol/L (133-145)
[2025-04-24 17:24] LABS: Bedside Glucose 134 mg/dL (74-106)
[2025-04-24] MEDS: Atorvastatin Calcium 10 MG Tablet PO (21:37)
[2025-04-24] MEDS: Gabapentin 300 MG Capsule PO (21:37)
[2025-04-25] VITALS (9 sets, daily range): BP systolic 108–122; BP diastolic 63–85; PULSE 104–119; RESP 17–18; TEMP 35.6–36.7; O2SAT 95–98; BMI 39.0
[2025-04-25 00:34] LABS: Bedside Glucose 142 mg/dL (74-106)
[2025-04-25] MEDS: Metoprolol Tartrate 50 MG Tablet PO ×4 (00:42→17:36)
[2025-04-25] MEDS: dilTIAZem 60 MG Tablet PO ×4 (00:42→17:38)
[2025-04-25 00:49] LABS: Bedside Glucose 129 mg/dL (74-106)
[2025-04-25 05:46] LABS: Absolute Lymphocyte Count 0.75 X10^3/uL (0.83-4.51); Absolute Neutrophil Count 9.2 X10^3/uL (2.0-7.7); Basophil# 0.04 X10^3/uL; Basophil% 0.4 % (0-1); Eosinophils% 2.7 % (0-5); Hematocrit 31.4 % (37-47); Hemoglobin 9.9 g/dL (12.0-15.0); Lymphocyte # 0.75 X10^3/ul (0.83-4.51); Lymphocyte % 6.8 % (19-41); Mean Corp Hgb Conc 31.5 g/dL (32-36); Mean Corpuscular Volume 88.7 fL (81-99); Mean Platelet Vol. 10.1 fl (6.2-12.0); Monocyte# 0.65 X10^3/uL; Monocyte% 5.9 % (0-10); NRBC Flagged by Analyzer 0 % (0-5); Neutrophil # 9.24 X10^3/uL (2.7-7.7); Neutrophil % 83.6 % (47-70); Platelet Count 295 K/mm3 (150-450); RBC Distribution Width CV 16.2 % (11.6-14.6); RBC Distribution Width SD 52.8 fl (35.1-43.9); Red Blood Count 3.54 M/mm3 (4.2-5.4); White Blood Count 11.1 K/mm3 (4.4-11.0)
--- NOTE | 2025-04-25 05:55 | RAD_ITS ---
PROCEDURE: CHEST PA AND LATERAL 04/25/2025 REASON FOR EXAM: RIGHT-SIDED PLEURAL EFFUSION TECHNIQUE: Frontal and lateral views of the chest. COMPARISON: Portable chest, 04/22/2025. FINDINGS: There is cardiomegaly, pulmonary venous hypertension and pulmonary interstitial edema consistent with mild congestive heart failure. There are bilateral pleural effusions, [id number]. There is bibasilar atelectasis. The mitral valve annulus is heavily calcified. There is calcific vascular disease of the thoracic aorta. The upper abdominal bowel gas pattern is normal. There are no acute bony abnormalities. RAD/Chest PA and Lateral IMPRESSION: Congestive heart failure with bilateral pleural effusions and bibasilar atelect asis. Reading Location: [id number]
[2025-04-25 06:19] LABS: Anion Gap 9 (5-15); BUN 45 mg/dL (4-19); BUN/Creat Ratio 39.6 RATIO (10-20); Calcium,Total 8.7 mg/dL (7.6-11.0); Chloride 107 mmol/L (98-108); Creatinine, Serum 1.13 mg/dL (0.70-1.20); EST Glomerular Filtration Rate 48 (>60); Estimated Creatinine Clearance 38.04 ml/min (50-250); Glucose 150 mg/dL (70-99); Potassium 3.9 mmol/L (3.3-5.1); Sodium Level 141 mmol/L (133-145)
[2025-04-25] MEDS: Levothyroxine 100 MCG Tablet PO (06:40)
[2025-04-25 07:15] LABS: Bedside Glucose 139 mg/dL (74-106)
[2025-04-25] MEDS: metOLazone 5 MG Tablet PO (08:47)
[2025-04-25] MEDS: guaiFENesin 600 MG Tablet PO ×2 (08:47→22:16)
[2025-04-25] MEDS: Amiodarone 200 MG Tablet 400 MG PO ×2 (08:48→22:17)
[2025-04-25] MEDS: Pentoxifylline 400 MG Tablet PO ×3 (08:48→22:16)
[2025-04-25] MEDS: Multivitamins,Ther W-Minerals Tablet 1 TABLET PO (08:48)
[2025-04-25] MEDS: Ceftriaxone 2 GM in 0.9% Normal Saline (50mL MB+) 50 ML IV (08:58)
--- NOTE | 2025-04-25 11:49 | PCM.PN.HOSP ---
Reason for Visit Reason for Visit: Diagnoses Unspecified atrial fibrillation (04/16/25) Unspecified diastolic (congestive) heart failure (04/16/25) Acute on chronic diastolic (congestive) heart failure (04/16/25) Pleural effusion, not elsewhere classified (04/16/25) Acute kidney failure, unspecified (04/16/25) Personal history of other endocrine, nutritional and metabolic disease (04/16/25) Subjective Subjective Chest x-ray this morning did demonstrate congestive heart failure with bilateral pleural effusions and bibasilar atelectasis. Patient continues to improve clinically and has been weaned off oxygen. Did discuss patient about therapy regarding her physical deconditioning Objective Data Objective Data Vital Signs: Vital Signs Temp Pulse Resp BP Pulse Ox O2 Del Method O2 Flow Rate 98.0 F 104 H 17 108/78 96 Room Air 2 04/25/25 09:45 04/25/25 09:45 04/25/25 09:45 04/25/25 09:45 04/25/25 09:45 04/25/25 09:45 04/23/25 07:47 FiO2 30 04/21/25 15:03 Oxygen Flow Rate (L/min) 2 Oxygen Delivery Method Room Air Weight: 93.8 kg Body Mass Index (BMI) 39.0 Intake & Output: Intake and Output for Last 24 Hours 04/23/25 04/24/25 04/25/25 23:59 23:59 23:59 Intake Total 490 / 490 50 / 50 50 / 50 Output Total 1250 / 1750 700 / 700 Balance -760 / -1260 -650 / -650 50 / 50 Lab / Micro Data 04/25/25 05:04 04/25/25 05:04 Labs: Laboratory Results - last 24 hr 04/24/25 12:31: POC Glucose 129 H 04/24/25 13:45: WBC Cancelled, Corrected WBC Cancelled, RBC Cancelled, Hgb Cancelled, Hct Cancelled, MCV Cancelled, MCH Cancelled, MCHC Cancelled, RDW Std Deviation Cancelled, RDW Coeff of Marcial Cancelled, Plt Count Cancelled, MPV Cancelled, Diff Path Review Cancelled, Sodium Cancelled, Potassium Cancelled, Chloride Cancelled, Carbon Dioxide Cancelled, Anion Gap Cancelled, BUN Cancelled, Creatinine Cancelled, Estim Creat Clear Calc Cancelled, Est GFR (MDRD) Non-Af Cancelled, BUN/Creatinine Ratio Cancelled, Glucose Cancelled, Calcium Cancelled, Phosphorus Cancelled, Magnesium Cancelled, Total Bilirubin Cancelled, AST Cancelled, ALT Cancelled, Alkaline Phosphatase Cancelled, Total Protein Cancelled, Albumin Cancelled, Globulin Cancelled, Albumin/Globulin Ratio Cancelled 04/24/25 14:50: WBC 11.7 H, RBC 3.73 L, Hgb 10.3 L, Hct 33.1 L, MCV 88.7, MCH 27.6, MCHC 31.1 L, RDW Std Deviation 52.6 H, RDW Coeff of Marcial 16.2 H, Plt Count 299, MPV 9.9, Immature Gran % (Auto) 0.900, Neut % (Auto) 81.6 H, Lymph % (Auto) 7.3 L, [place] % (Auto) 7.1, Eos % (Auto) 2.7, Baso % (Auto) 0.4, Absolute Neuts (auto) 9.6 H, Absolute Lymphs (auto) 0.86, Nucleated RBC % 0.2, Sodium 140, Potassium 3.9, Chloride 107, Carbon Dioxide 24.6, Anion Gap 9, BUN 48 H, Creatinine 1.14, Estim Creat Clear Calc 37.82 L, Est GFR (MDRD) Non-Af 47 L, BUN/Creatinine Ratio 41.7 H, Glucose 169 H, Calcium 8.6, Phosphorus 2.2 L, Magnesium 2.1 04/24/25 17:07: POC Glucose 134 H 04/24/25 21:27: POC Glucose 142 H 04/25/25 05:04: WBC 11.1 H, RBC 3.54 L, Hgb 9.9 L, Hct 31.4 L, MCV 88.7, MCH 28.0, MCHC 31.5 L, RDW Std Deviation 52.8 H, RDW Coeff of Marcial 16.2 H, Plt Count 295, MPV 10.1, Immature Gran % (Auto) 0.600, Neut % (Auto) 83.6 H, Lymph % (Auto) 6.8 L, [place] % (Auto) 5.9, Eos % (Auto) 2.7, Baso % (Auto) 0.4, Absolute Neuts (auto) 9.2 H, Absolute Lymphs (auto) 0.75 L, Nucleated RBC % 0, Sodium 141, Potassium 3.9, Chloride 107, Carbon Dioxide 25.0, Anion Gap 9, BUN 45 H, Creatinine 1.13, Estim Creat Clear Calc 38.04 L, Est GFR (MDRD) Non-Af 48 L, BUN/Creatinine Ratio 39.6 H, Glucose 150 H, Calcium 8.7 04/25/25 06:40: POC Glucose 139 H Micro: Microbiology 04/22/25 14:10 Fluid - Thoracentesis Fluid Gram Stain - Final 04/22/25 14:10 Fluid - Thoracentesis Fluid Body Fluid Culture - Preliminary No growth-Final to follow 04/22/25 14:10 Fluid - Thoracentesis Fluid Anaerobic Culture - Preliminary No growth in 48 hours. 04/18/25 10:50 Blood Culture (Wb) - Arm Right Blood Culture - Final No growth in 5 days. 04/18/25 11:00 Blood Culture (Wb) - Right Wrist Blood Culture - Final No growth in 5 days. 04/16/25 16:16 Sputum, Expectorated/Coughed Gram Stain - Final 04/16/25 16:16 Sputum, Expectorated/Coughed Respiratory Culture - Final Klebsiella pneumoniae sp pneum 04/18/25 10:51 Mucosa - Nasopharyngeal Respiratory Panel (PCR) - Final 04/18/25 10:00 Urine Catheter - Metzger Legionella Antigen - Final 04/18/25 10:00 Urine Catheter - Metzger Streptococcus pneumoniae Antigen (M - Final 04/18/25 10:51 Mucosa - Nasopharyngeal Coronavirus COVID-19 PCR - Final Radiography Diagnostic Testing: Radiology Impression Chest X-Ray 04/25/25 05:55 IMPRESSION: Congestive heart failure with bilateral pleural effusions and bibasilar atelectasis. Reading Location: [id number] Rhythm Strip Rhythm Strip: A-fib Rate: 125 Physical Exam Narrative GENERAL: Cooperative off oxygen HEENT: Atraumatic; normocephalic EYES; Anicteric, Normal Conjunctiva NECK; supple, normal thyroid, RESPIRATORY: Diminished to auscultation, CARDIOVASCULAR: Irregular S1-S2 but rate controlled GI: soft, normoactive bowel sounds, : No Renal angle tenderness; EXTREMITIES: Bipedal edema, no clubbing, MUSCULOSKELETAL: no muscle wasting NEURO: Awake; no lateralizing signs. SKIN: No Rash PSYCH; Flat affect Const alert and no apparent distress Constitutional Narrative: On oxygen. No respiratory distress. No conversational dyspnea. HEENT normocephalic and head/scalp atraumatic Eyes Eyes Narrative: No icterus. Glasses. Neck Neck Narrative: JVD. No thyromegaly. No lymphadenopathy. Resp Resp Narrative: Bibasilar crackles. Cardio regular rate and no murmurs GI normal to inspection, nondistended, normoactive bowel sounds and soft to palpation GI Narrative: Obese with pannus. Extremity Extremity Narrative: Bilateral tight lower extremity edema extending proximally upper thighs. Skin Skin Narrative: Chronic venous stasis changes to the lower extremities. Neuro Sensorium / Orientation: awake, alert and oriented to place Psych affect normal Assessment & Plan Assessment/Plan (1) (HFpEF) heart failure with preserved ejection fraction: QUALIFIERS: Heart failure chronicity: acute on chronic Qualified Code(s): I50.33 - Acute on chronic diastolic (congestive) heart failure (2) Pleural effusion: (3) FERMÍN (acute kidney injury): (4) Atrial fibrillation with rapid ventricular response: PLAN: Plan Patient is an 84-year-old lady with past medical history significant for paroxysmal A-fib who presented with progressive shortness of breath and assessment of acute congestive heart failure made admitted to monitored bed for further management 1. Acute on chronic congestive heart failure with preserved ejection fraction ? Patient admitted to monitored bed treatment initiated with strict input and output, daily weights, fluid restriction as well as diuretic therapy with furosemide drip. As part of patient's management 2D echo was ordered on admission demonstrated ejection fraction of 55-60 % and Severe biatrial enlargement. ? Patient is on furosemide drip however response to therapy not impressive. Consult placed to cardiology. Family request ? 04/19/2025; patient is on furosemide drip however appears not to be responding. Creatinine and BUN worsening. ? 04/20/2025; patient BUN and creatinine continues to worsen. Lasix drip held given patient being relatively hypotensive. ? 04/21/2025; patient furosemide discontinued started on Zaroxolyn ? 04/25/2025;Chest x-ray this morning did demonstrate congestive heart failure with bilateral pleural effusions and bibasilar atelectasis. Patient continues to improve clinically and has been weaned off oxygen. 2. Large right-sided pleural effusion ? CT of the chest obtained did show Large right pleural effusion with compressive atelectasis. Small left pleural effusion with compressive atelectasis.. An order was given for patient to undergo ultrasound-guided thoracocentesis as part of subsequent evaluation ordered pleural fluid studies including LDH WBC, and glucose levels ? 04/18/2025; patient ultrasound guided thoracocentesis centesis scheduled for 04/19/2025. ? 04/19/2025; patient scheduled to undergo ultrasound-guided paracentesis ? 04/20/2025: Patient underwent ultrasound-guided thoracocentesis on 04/19/2025 with 1350 mL of blood-tinged fluid aspirated sample sent to the lab for analysis.Patient was noted to be dyspneic earlier in the early hours of this a.m. patient placed on supplemental oxygen repeat x-ray ordered which did show reaccumulation of a moderate right pleural effusion again with adjacent right base passive collapse. No pneumothorax identified. Similar appearance of possible small left effusion and basilar atelectasis, passive collapse. ? 04/22/2025; repeat chest x-ray ordered for further evaluation ? 04/23/2025;Patient underwent repeat thoracocentesis the day prior1.5 L of fluid was taken out. Fluid analysis still consistent with transudate. Consult was placed to pulmonary medicine Case discussed with Dr. Wong. ? 04/24/2025Had a discussion with patient's daughter and son plan is to repeat imaging studies and if there is reaccumulation of the fluid consideration will be given to patient being transferred to a tertiary care center for possible pleurodesis ? 04/25/2022;Chest x-ray this morning did demonstrate congestive heart failure with bilateral pleural effusions and bibasilar atelectasis. Will hold off with further thoracocentesis. 3. Acute kidney injury ? Suspected to be secondary to hypoperfusion from patient congestive heart failure. Creatinine from 01/10/2025 was 1.07 creatinine on admission was 2.31. Patient kidney function actually did worsen with diuresis with creatinine bumping up to 2.62. Subsequently requested for kidney ultrasound and nephrology consultation obtained ? 04/18/2025; patient kidney function did worsen. Subsequently requested nephrology consultation as well as ordered kidney ultrasound. Repeat BMP ordered in a.m. for follow-up ? 04/19/2025; Patient kidney function continues to worsen with BUN of 108 and creatinine of 2.93. Consult has been placed to nephrology today prior renal ultrasound obtained came back unremarkable. Repeat BMP ordered for a.m. ? 04/20/2025; patient kidney function continues to worsen. Family to decide if they want to proceed with temporary dialysis. Had a discussion with patient and son-in-law. Patient is agreeable to temporary dialysis catheter for now.. Consult subsequently placed to general surgery Case discussed with Dr. Michael De Luna ? 04/21/2025; patient creatinine down to 1.98, BUN down to 95 ? 04/22/2025; BMP this morning reviewed. Significant improvement in creatinine which is down to 1.03. Repeat BMP ordered. ? 05/20/2025. Repeat BMP the day prior came back at 1.38, patient creatinine [place] down to 1.25 4. Paroxysmal atrial fibrillation ? Patient went into A-fib with RVR necessitating patient being started on Cardizem drip which is currently being titrated to keep heart rate less than 100 ? 04/20/2025 patient is on apixaban decision was made to hold in anticipation of possible temporary dialysis catheter placement ? 04/21/2025; patient apixaban placed on hold. Started on p.o. Cardizem and metoprolol given her heart rates going up ? 04/22/2025; patient heart rates control still not optimal continues to remain labile ? 04/23/2025; patient went into A-fib with RVR necessitating patient being started on amiodarone drip after bolus was given. Heart rate remains uncontrolled. Cardiology was reconsulted ? 04/24/2025 7Patient was switched from IV amiodarone to p.o. amiodarone the day prior. Heart rate control still not optimal. ? 04/25/2025; patient creatinine down to 1.1. 5. Acute hypoxic respiratory failure ? Secondary to congestive heart failure and large right sided pleural effusion. Patient was placed on supplemental oxygen in addition to bronchodilator treatment. ? 04/18/2025; patient to be assessed for home oxygen prior to this ? 04/20/2025; did ask patient about possible intubation if warranted. Patient is not show how she wants to proceed and wants to have a discussion with the family prior to making a decision ? 04/21/2025; patient had to be placed on noninvasive ventilation via Airvo after going into respiratory distress with significant hypoxia. ? 04/22/2025; patient has been weaned off Airvo now on nasal 6. Hypotension ? 04/20/2025 patient diuretic therapy as well as antihypertensive and antiarrhythmic's?Cardizem and metoprolol held. Resuscitated with IV fluid. An order was given for patient to be transferred to the intensive care unit. Did place an order for PICC line and order written for norepinephrine if patient does not respond to IV fluid resuscitation ? 04/21/2025; patient did respond to IV fluids ? 04/25/2025; patient blood pressure still soft 7. Essential hypertension ? Patient is on 40 mg of lisinopril held given patient worsening kidney function ? 04/20/2025; patient antihypertensives on hold given patient relatively low blood pressure 8. Hypothyroidism ? Patient is on levothyroxine home dose continued 9. Class II obesity ? Complicating care weight loss advised 10. Degenerative joint disease ? Pain meds as needed 11. Dyslipidemia ?Patient is on statin therapy, continued at home dose 12. Diabetes mellitus type 2 ? Patient is on metformin held on admission placed on Accu-Cheks AC and at bedtime with sliding scale coverage 13. Bilateral lower extremity venous insufficiency Manage patient to follow-up with PCP for outpatient management 14. Suspected pneumonia with Klebsiella pneumonia ? Patient has elevated WBC count with a left shift. CT of the chest obtained the day prior demonstrated infiltrate at the bases of both lungs. Patient subsequently started on ceftriaxone and azithromycin. Also did send for sputum and blood culture ? 04/19/2025; sputum cultures came out positive for Klebsiella pneumonia remains on appropriate antibiotic therapy 15. Physical deconditioning ? Requested for PT OT eval and geriatric social work professor to assist with discharge planning ? 04/25/2025; did have a discussion with patient about possibility of being to a care home facility for possible rehab 16. DVT prophylaxis ? Patient is on apixaban held prior to patient thoracocentesis resumed subsequently Time spent in the patient's overall evaluation,decision-making process, review of diagnostic data, adjustment of management, discussion with other providers, nursing nursing, ancillary staff as well as patient's family involved in patient's care documentation, 36 Charges/Coding Visit Charges Inpatient E&M: 42948 Subs Hosp L2
[2025-04-25 12:28] LABS: Bedside Glucose 165 mg/dL (74-106)
[2025-04-25] MEDS: Insulin Lispro 100 UNIT/ML INSULN.PEN SC (12:32)
[2025-04-25 18:00] LABS: Bedside Glucose 147 mg/dL (74-106)
[2025-04-25] MEDS: Atorvastatin Calcium 10 MG Tablet PO (22:16)
[2025-04-25] MEDS: Gabapentin 300 MG Capsule PO (22:16)
[2025-04-25] MEDS: APIXABAN 5 MG TABLET PO (22:16)
[2025-04-25 23:02] LABS: Bedside Glucose 139 mg/dL (74-106)
[2025-04-26 00:54] VITALS: BP 128/79; PULSE 124
[2025-04-26] MEDS: Metoprolol Tartrate 50 MG Tablet PO ×2 (00:54→05:06)
[2025-04-26] MEDS: dilTIAZem 60 MG Tablet PO ×2 (00:55→05:07)
[2025-04-26 03:44] VITALS: BMI 38.7
[2025-04-26 05:00] VITALS: BP 118/89; PULSE 103; RESP 18; TEMP 36.6; O2SAT 95
[2025-04-26 05:06] VITALS: BP 118/89; PULSE 103
[2025-04-26] MEDS: Levothyroxine 100 MCG Tablet PO (05:06)
[2025-04-26 06:53] LABS: Absolute Lymphocyte Count 0.95 X10^3/uL (0.83-4.51); Absolute Neutrophil Count 9.1 X10^3/uL (2.0-7.7); Basophil# 0.05 X10^3/uL; Basophil% 0.4 % (0-1); Eosinophil# 0.27 X10^3/uL; Eosinophils% 2.4 % (0-5); Hematocrit 26.7 % (37-47); Hemoglobin 8.4 g/dL (12.0-15.0); Lymphocyte # 0.95 X10^3/ul (0.83-4.51); Lymphocyte % 8.5 % (19-41); Mean Corp Hgb Conc 31.5 g/dL (32-36); Mean Platelet Vol. 9.9 fl (6.2-12.0); Monocyte# 0.65 X10^3/uL; Monocyte% 5.8 % (0-10); NRBC Flagged by Analyzer 0 % (0-5); Neutrophil # 9.12 X10^3/uL (2.7-7.7); Neutrophil % 82.2 % (47-70); Platelet Count 297 K/mm3 (150-450); RBC Distribution Width CV 16.3 % (11.6-14.6); RBC Distribution Width SD 52.7 fl (35.1-43.9); White Blood Count 11.1 K/mm3 (4.4-11.0)
[2025-04-26 07:06] LABS: Bedside Glucose 142 mg/dL (74-106)
--- NOTE | 2025-04-26 07:20 | PCM.PN.HOSP ---
Reason for Visit Reason for Visit: Diagnoses Unspecified atrial fibrillation (04/16/25) Unspecified diastolic (congestive) heart failure (04/16/25) Acute on chronic diastolic (congestive) heart failure (04/16/25) Pleural effusion, not elsewhere classified (04/16/25) Acute kidney failure, unspecified (04/16/25) Personal history of other endocrine, nutritional and metabolic disease (04/16/25) Subjective Subjective Patient seen continues to improve clinically. Patient is requesting to be discharged. Was seen and assessed by physical therapy. Patient does not meet criteria for halfway placement. Plan therefore will be to discharge patient home with home health Objective Data Objective Data Vital Signs: Vital Signs Temp Pulse Resp BP Pulse Ox O2 Del Method O2 Flow Rate 96.0 F L 103 H 18 118/89 H 96 Room Air 2 04/25/25 22:30 04/26/25 05:06 04/25/25 22:30 04/26/25 05:06 04/25/25 22:30 04/25/25 22:30 04/23/25 07:47 FiO2 30 04/21/25 15:03 Oxygen Flow Rate (L/min) 2 Oxygen Delivery Method Room Air Weight: 93.1 kg Body Mass Index (BMI) 38.7 Intake & Output: Intake and Output for Last 24 Hours 04/24/25 04/25/25 04/26/25 23:59 23:59 23:59 Intake Total 50 / 50 770 / 1250 730 / 730 Output Total 700 / 700 Balance -650 / -650 770 / 1250 730 / 730 Lab / Micro Data 04/26/25 06:40 04/26/25 06:40 Labs: Laboratory Results - last 24 hr 04/25/25 12:09: POC Glucose 165 H 04/25/25 16:37: POC Glucose 147 H 04/25/25 22:26: POC Glucose 139 H 04/26/25 06:37: POC Glucose 142 H 04/26/25 06:40: WBC 11.1 H, RBC 3.00 L, Hgb 8.4 L, Hct 26.7 L, MCV 89.0, MCH 28.0, MCHC 31.5 L, RDW Std Deviation 52.7 H, RDW Coeff of Marcial 16.3 H, Plt Count 297, MPV 9.9, Immature Gran % (Auto) 0.700, Neut % (Auto) 82.2 H, Lymph % (Auto) 8.5 L, [place] % (Auto) 5.8, Eos % (Auto) 2.4, Baso % (Auto) 0.4, Absolute Neuts (auto) 9.1 H, Absolute Lymphs (auto) 0.95, Nucleated RBC % 0 Micro: Microbiology 04/22/25 14:10 Fluid - Thoracentesis Fluid Gram Stain - Final 04/22/25 14:10 Fluid - Thoracentesis Fluid Body Fluid Culture - Preliminary No growth-Final to follow 04/22/25 14:10 Fluid - Thoracentesis Fluid Anaerobic Culture - Preliminary No growth in 48 hours. 04/18/25 10:50 Blood Culture (Wb) - Arm Right Blood Culture - Final No growth in 5 days. 04/18/25 11:00 Blood Culture (Wb) - Right Wrist Blood Culture - Final No growth in 5 days. 04/16/25 16:16 Sputum, Expectorated/Coughed Gram Stain - Final 04/16/25 16:16 Sputum, Expectorated/Coughed Respiratory Culture - Final Klebsiella pneumoniae sp pneum 04/18/25 10:51 Mucosa - Nasopharyngeal Respiratory Panel (PCR) - Final 04/18/25 10:00 Urine Catheter - Metzger Legionella Antigen - Final 04/18/25 10:00 Urine Catheter - Metzger Streptococcus pneumoniae Antigen (M - Final 04/18/25 10:51 Mucosa - Nasopharyngeal Coronavirus COVID-19 PCR - Final Rhythm Strip Rhythm Strip: A-fib Rate: 125 Physical Exam Narrative GENERAL: Cooperative off oxygen HEENT: Atraumatic; normocephalic EYES; Anicteric, Normal Conjunctiva NECK; supple, normal thyroid, RESPIRATORY: Diminished to auscultation, CARDIOVASCULAR: Irregular S1-S2 but rate controlled GI: soft, normoactive bowel sounds, : No Renal angle tenderness; EXTREMITIES: Bipedal edema, no clubbing, MUSCULOSKELETAL: no muscle wasting NEURO: Awake; no lateralizing signs. SKIN: No Rash PSYCH; Flat affect Assessment & Plan Assessment/Plan (1) (HFpEF) heart failure with preserved ejection fraction: QUALIFIERS: Heart failure chronicity: acute on chronic Qualified Code(s): I50.33 - Acute on chronic diastolic (congestive) heart failure (2) Pleural effusion: (3) FERMÍN (acute kidney injury): (4) Atrial fibrillation with rapid ventricular response: PLAN: Plan Patient is an 84-year-old lady with past medical history significant for paroxysmal A-fib who presented with progressive shortness of breath and assessment of acute congestive heart failure made admitted to monitored bed for further management 1. Acute on chronic congestive heart failure with preserved ejection fraction ? Patient admitted to monitored bed treatment initiated with strict input and output, daily weights, fluid restriction as well as diuretic therapy with furosemide drip. As part of patient's management 2D echo was ordered on admission demonstrated ejection fraction of 55-60 % and Severe biatrial enlargement. ? Patient is on furosemide drip however response to therapy not impressive. Consult placed to cardiology. Family request ? 04/19/2025; patient is on furosemide drip however appears not to be responding. Creatinine and BUN worsening. ? 04/20/2025; patient BUN and creatinine continues to worsen. Lasix drip held given patient being relatively hypotensive. ? 04/21/2025; patient furosemide discontinued started on Zaroxolyn ? 04/25/2025;Chest x-ray this morning did demonstrate congestive heart failure with bilateral pleural effusions and bibasilar atelectasis. Patient continues to improve clinically and has been weaned off oxygen. ? 04/26/2025; plan is to assess patient for home oxygen requirement prior to making a decision to discharge patient 2. Large right-sided pleural effusion ? CT of the chest obtained did show Large right pleural effusion with compressive atelectasis. Small left pleural effusion with compressive atelectasis.. An order was given for patient to undergo ultrasound-guided thoracocentesis as part of subsequent evaluation ordered pleural fluid studies including LDH WBC, and glucose levels ? 04/18/2025; patient ultrasound guided thoracocentesis centesis scheduled for 04/19/2025. ? 04/19/2025; patient scheduled to undergo ultrasound-guided paracentesis ? 04/20/2025: Patient underwent ultrasound-guided thoracocentesis on 04/19/2025 with 1350 mL of blood-tinged fluid aspirated sample sent to the lab for analysis.Patient was noted to be dyspneic earlier in the early hours of this a.m. patient placed on supplemental oxygen repeat x-ray ordered which did show reaccumulation of a moderate right pleural effusion again with adjacent right base passive collapse. No pneumothorax identified. Similar appearance of possible small left effusion and basilar atelectasis, passive collapse. ? 04/22/2025; repeat chest x-ray ordered for further evaluation ? 04/23/2025;Patient underwent repeat thoracocentesis the day prior1.5 L of fluid was taken out. Fluid analysis still consistent with transudate. Consult was placed to pulmonary medicine Case discussed with Dr. Wong. ? 04/24/2025Had a discussion with patient's daughter and son plan is to repeat imaging studies and if there is reaccumulation of the fluid consideration will be given to patient being transferred to a tertiary care center for possible pleurodesis ? 04/25/2022;Chest x-ray this morning did demonstrate congestive heart failure with bilateral pleural effusions and bibasilar atelectasis. Will hold off with further thoracocentesis. 3. Acute kidney injury ? Suspected to be secondary to hypoperfusion from patient congestive heart failure. Creatinine from 01/10/2025 was 1.07 creatinine on admission was 2.31. Patient kidney function actually did worsen with diuresis with creatinine bumping up to 2.62. Subsequently requested for kidney ultrasound and nephrology consultation obtained ? 04/18/2025; patient kidney function did worsen. Subsequently requested nephrology consultation as well as ordered kidney ultrasound. Repeat BMP ordered in a.m. for follow-up ? 04/19/2025; Patient kidney function continues to worsen with BUN of 108 and creatinine of 2.93. Consult has been placed to nephrology today prior renal ultrasound obtained came back unremarkable. Repeat BMP ordered for a.m. ? 04/20/2025; patient kidney function continues to worsen. Family to decide if they want to proceed with temporary dialysis. Had a discussion with patient and son-in-law. Patient is agreeable to temporary dialysis catheter for now.. Consult subsequently placed to general surgery Case discussed with Dr. Michael De Luna ? 04/21/2025; patient creatinine down to 1.98, BUN down to 95 ? 04/22/2025; BMP this morning reviewed. Significant improvement in creatinine which is down to 1.03. Repeat BMP ordered. ? 05/20/2025. Repeat BMP the day prior came back at 1.38, patient creatinine [place] down to 1.25 4. Paroxysmal atrial fibrillation ? Patient went into A-fib with RVR necessitating patient being started on Cardizem drip which is currently being titrated to keep heart rate less than 100 ? 04/20/2025 patient is on apixaban decision was made to hold in anticipation of possible temporary dialysis catheter placement ? 04/21/2025; patient apixaban placed on hold. Started on p.o. Cardizem and metoprolol given her heart rates going up ? 04/22/2025; patient heart rates control still not optimal continues to remain labile ? 04/23/2025; patient went into A-fib with RVR necessitating patient being started on amiodarone drip after bolus was given. Heart rate remains uncontrolled. Cardiology was reconsulted ? 04/24/2025 7Patient was switched from IV amiodarone to p.o. amiodarone the day prior. Heart rate control still not optimal. ? 04/25/2025; patient creatinine down to 1.1. 5. Acute hypoxic respiratory failure ? Secondary to congestive heart failure and large right sided pleural effusion. Patient was placed on supplemental oxygen in addition to bronchodilator treatment. ? 04/18/2025; patient to be assessed for home oxygen prior to this ? 04/20/2025; did ask patient about possible intubation if warranted. Patient is not show how she wants to proceed and wants to have a discussion with the family prior to making a decision ? 04/21/2025; patient had to be placed on noninvasive ventilation via Airvo after going into respiratory distress with significant hypoxia. ? 04/22/2025; patient has been weaned off Airvo now on nasal 6. Hypotension ? 04/20/2025 patient diuretic therapy as well as antihypertensive and antiarrhythmic's?Cardizem and metoprolol held. Resuscitated with IV fluid. An order was given for patient to be transferred to the intensive care unit. Did place an order for PICC line and order written for norepinephrine if patient does not respond to IV fluid resuscitation ? 04/21/2025; patient did respond to IV fluids ? 04/25/2025; patient blood pressure still soft 7. Essential hypertension ? Patient is on 40 mg of lisinopril held given patient worsening kidney function ? 04/20/2025; patient antihypertensives on hold given patient relatively low blood pressure 8. Hypothyroidism ? Patient is on levothyroxine home dose continued 9. Class II obesity ? Complicating care weight loss advised 10. Degenerative joint disease ? Pain meds as needed 11. Dyslipidemia ?Patient is on statin therapy, continued at home dose 12. Diabetes mellitus type 2 ? Patient is on metformin held on admission placed on Accu-Cheks AC and at bedtime with sliding scale coverage 13. Bilateral lower extremity venous insufficiency Manage patient to follow-up with PCP for outpatient management 14. Suspected pneumonia with Klebsiella pneumonia ? Patient has elevated WBC count with a left shift. CT of the chest obtained the day prior demonstrated infiltrate at the bases of both lungs. Patient subsequently started on ceftriaxone and azithromycin. Also did send for sputum and blood culture ? 04/19/2025; sputum cultures came out positive for Klebsiella pneumonia remains on appropriate antibiotic therapy 15. Physical deconditioning ? Requested for PT OT eval and social studies department chair to assist with discharge planning ? 04/25/2025; did have a discussion with patient about possibility of being to a halfway facility for possible rehab ? 04/26/2025; patient did not meet criteria to be discharged to a halfway facility. Plan therefore will be to discharge patient home with home health 16. DVT prophylaxis ? Patient is on apixaban held prior to patient thoracocentesis resumed subsequently Time spent in the patient's overall evaluation,decision-making process, review of diagnostic data, adjustment of management, discussion with other providers, nursing nursing, ancillary staff as well as patient's family involved in patient's care documentation, 35 Charges/Coding Visit Charges Inpatient E&M: 79523 Subs Hosp L2
[2025-04-26 07:37] LABS: Anion Gap 7 (5-15); BUN 46 mg/dL (4-19); BUN/Creat Ratio 39.6 RATIO (10-20); Calcium,Total 8.6 mg/dL (7.6-11.0); Chloride 107 mmol/L (98-108); Creatinine, Serum 1.15 mg/dL (0.70-1.20); EST Glomerular Filtration Rate 47 (>60); Estimated Creatinine Clearance 37.22 ml/min (50-250); Glucose 150 mg/dL (70-99); Sodium Level 140 mmol/L (133-145)
[2025-04-26] MEDS: metOLazone 5 MG Tablet PO (09:00)
[2025-04-26] MEDS: Amiodarone 200 MG Tablet 400 MG PO (09:00)
[2025-04-26] MEDS: APIXABAN 5 MG TABLET PO (09:00)
[2025-04-26] MEDS: Multivitamins,Ther W-Minerals Tablet 1 TABLET PO (09:01)
[2025-04-26] MEDS: Pentoxifylline 400 MG Tablet PO (09:01)
[2025-04-26] MEDS: guaiFENesin 600 MG Tablet PO (09:01)
--- NOTE | 2025-04-26 10:05 | DS.PCM_ITS ---
Providers Date of Admission: 04/16/25 Date of Discharge: 04/26/25 Primary Care Physician: Ras Childress Consultations 04/17/25 11:48 Consult: Nephrology Routine Consulting Provider: Melissa Garcia Reason for Consult: FERMÍN EMERGENT Consult: No Notified: Yes Date Notified: 04/17/25 Time Notified: 12:25 Method of Notification: Answering Service 04/18/25 09:38 Consult: Cardiology Routine Consulting Provider: Edward Le Reason for Consult: afib; chf EMERGENT Consult: No MD Notified: Yes Date Notified: 04/18/25 Time Notified: 09:38 Method of Notification: Verbal 04/20/25 11:43 Consult: General Surgery Routine Consulting Provider: Aubrey De Luna Reason for Consult: For temp Dialysis catether EMERGENT Consult: No Notified: Yes Date Notified: 04/20/25 Time Notified: 10:20 Method of Notification: Verbal 04/22/25 09:08 Consult: Rough Patcher / Pulmonary Medicine Routine Consulting Provider: Intensivists/Pulmonary Med Reason for Consult: Recurrent pleural effusion EMERGENT Consult: No Notified: Yes Date Notified: 04/22/25 Time Notified: 09:08 Method of Notification: Verbal 04/22/25 09:12 Consult: Rough Patcher / Pulmonary Medicine Routine Consulting Provider: Intensivists/Pulmonary Med Reason for Consult: Reoccuring pleural effusions EMERGENT Consult: No Notified: Yes Date Notified: 04/22/25 Time Notified: 09:12 Method of Notification: Verbal 04/22/25 12:44 Consult: Cardiology Routine Consulting Provider: Chris Fields Reason for Consult: A-fib with RVR EMERGENT Consult: No Notified: Yes Date Notified: 04/22/25 Time Notified: 12:45 Method of Notification: Verbal Reason For Visit: CHF EXACERBATION Diagnosis Discharge Diagnosis (1) (HFpEF) heart failure with preserved ejection fraction: Status: Acute Code(s): I50.30 - Unspecified diastolic (congestive) heart failure Qualifiers: Heart failure chronicity: acute on chronic Qualified Code(s): I50.33 - Acute on chronic diastolic (congestive) heart failure (2) Pleural effusion: Status: Acute Code(s): J90 - Pleural effusion, not elsewhere classified (3) FERMÍN (acute kidney injury): Status: Acute Code(s): N17.9 - Acute kidney failure, unspecified (4) Atrial fibrillation with rapid ventricular response: Status: Acute Code(s): I48.91 - Unspecified atrial fibrillation Plan Patient is an 84-year-old lady with past medical history significant for paroxysmal A-fib who presented with progressive shortness of breath and assessment of acute congestive heart failure made admitted to monitored bed for further management 1. Acute on chronic congestive heart failure with preserved ejection fraction ? Patient admitted to monitored bed treatment initiated with strict input and output, daily weights, fluid restriction as well as diuretic therapy with furosemide drip. As part of patient's management 2D echo was ordered on admission demonstrated ejection fraction of 55-60 % and Severe biatrial enlargement. ? Patient is on furosemide drip however response to therapy not impressive. Consult placed to cardiology. Family request ? 04/19/2025; patient is on furosemide drip however appears not to be responding. Creatinine and BUN worsening. ? 04/20/2025; patient BUN and creatinine continues to worsen. Lasix drip held given patient being relatively hypotensive. ? 04/21/2025; patient furosemide discontinued started on Zaroxolyn ? 04/25/2025;Chest x-ray this morning did demonstrate congestive heart failure with bilateral pleural effusions and bibasilar atelectasis. Patient continues to improve clinically and has been weaned off oxygen. ? 04/26/2025; plan is to assess patient for home oxygen requirement prior to making a decision to discharge patient ? Patient however did not qualify for home oxygen 2. Large right-sided pleural effusion ? CT of the chest obtained did show Large right pleural effusion with compressive atelectasis. Small left pleural effusion with compressive atelectasis.. An order was given for patient to undergo ultrasound-guided thoracocentesis as part of subsequent evaluation ordered pleural fluid studies including LDH WBC, and glucose levels ? 04/18/2025; patient ultrasound guided thoracocentesis centesis scheduled for 04/19/2025. ? 04/19/2025; patient scheduled to undergo ultrasound-guided paracentesis ? 04/20/2025: Patient underwent ultrasound-guided thoracocentesis on 04/19/2025 with 1350 mL of blood-tinged fluid aspirated sample sent to the lab for analysis.Patient was noted to be dyspneic earlier in the early hours of this a.m. patient placed on supplemental oxygen repeat x-ray ordered which did show reaccumulation of a moderate right pleural effusion again with adjacent right base passive collapse. No pneumothorax identified. Similar appearance of possible small left effusion and basilar atelectasis, passive collapse. ? 04/22/2025; repeat chest x-ray ordered for further evaluation ? 04/23/2025;Patient underwent repeat thoracocentesis the day prior1.5 L of fluid was taken out. Fluid analysis still consistent with transudate. Consult was placed to pulmonary medicine Case discussed with Dr. Wong. ? 04/24/2025Had a discussion with patient's daughter and son plan is to repeat imaging studies and if there is reaccumulation of the fluid consideration will be given to patient being transferred to a tertiary care center for possible pleurodesis ? 04/25/2022;Chest x-ray this morning did demonstrate congestive heart failure with bilateral pleural effusions and bibasilar atelectasis. Will hold off with further thoracocentesis. ? 04/26/2025; prescription written for metolazone on discharge 3. Acute kidney injury ? Suspected to be secondary to hypoperfusion from patient congestive heart failure. Creatinine from 01/10/2025 was 1.07 creatinine on admission was 2.31. Patient kidney function actually did worsen with diuresis with creatinine bumping up to 2.62. Subsequently requested for kidney ultrasound and nephrology consultation obtained ? 04/18/2025; patient kidney function did worsen. Subsequently requested nephrology consultation as well as ordered kidney ultrasound. Repeat BMP ordered in a.m. for follow-up ? 04/19/2025; Patient kidney function continues to worsen with BUN of 108 and creatinine of 2.93. Consult has been placed to nephrology today prior renal ultrasound obtained came back unremarkable. Repeat BMP ordered for a.m. ? 04/20/2025; patient kidney function continues to worsen. Family to decide if they want to proceed with temporary dialysis. Had a discussion with patient and son-in-law. Patient is agreeable to temporary dialysis catheter for now.. Consult subsequently placed to general surgery Case discussed with Dr. Michael De Luna ? 04/21/2025; patient creatinine down to 1.98, BUN down to 95 ? 04/22/2025; BMP this morning reviewed. Significant improvement in creatinine which is down to 1.03. Repeat BMP ordered. ? 04/23/2025. Repeat BMP the day prior came back at 1.38, patient creatinine [place] down to 1.25 ? 04/26/2025; creatinine at the time of discharge 1.15. Plan is for patient to follow-up with Dr. Garcia as outpatient 4. Paroxysmal atrial fibrillation ? Patient went into A-fib with RVR necessitating patient being started on Cardizem drip which is currently being titrated to keep heart rate less than 100 ? 04/20/2025 patient is on apixaban decision was made to hold in anticipation of possible temporary dialysis catheter placement ? 04/21/2025; patient apixaban placed on hold. Started on p.o. Cardizem and metoprolol given her heart rates going up ? 04/22/2025; patient heart rates control still not optimal continues to remain labile ? 04/23/2025; patient went into A-fib with RVR necessitating patient being started on amiodarone drip after bolus was given. Heart rate remains uncontrolled. Cardiology was reconsulted ? 04/24/2025 7Patient was switched from IV amiodarone to p.o. amiodarone the day prior. Heart rate control still not optimal. ? 04/25/2025; patient creatinine down to 1.1. 5. Acute hypoxic respiratory failure ? Secondary to congestive heart failure and large right sided pleural effusion. Patient was placed on supplemental oxygen in addition to bronchodilator treatment. ? 04/18/2025; patient to be assessed for home oxygen prior to this ? 04/20/2025; did ask patient about possible intubation if warranted. Patient is not show how she wants to proceed and wants to have a discussion with the family prior to making a decision ? 04/21/2025; patient had to be placed on noninvasive ventilation via Airvo after going into respiratory distress with significant hypoxia. ? 04/22/2025; patient has been weaned off Airvo now on nasal 6. Hypotension ? 04/20/2025 patient diuretic therapy as well as antihypertensive and antiarrhythmic's?Cardizem and metoprolol held. Resuscitated with IV fluid. An order was given for patient to be transferred to the intensive care unit. Did place an order for PICC line and order written for norepinephrine if patient does not respond to IV fluid resuscitation ? 04/21/2025; patient did respond to IV fluids ? 04/25/2025; patient blood pressure still soft 7. Essential hypertension ? Patient is on 40 mg of lisinopril held given patient worsening kidney function ? 04/20/2025; patient antihypertensives on hold given patient relatively low blood pressure 8. Hypothyroidism ? Patient is on levothyroxine home dose continued 9. Class II obesity ? Complicating care weight loss advised 10. Degenerative joint disease ? Pain meds as needed 11. Dyslipidemia ?Patient is on statin therapy, continued at home dose 12. Diabetes mellitus type 2 ? Patient is on metformin held on admission placed on Accu-Cheks AC and at bedtime with sliding scale coverage 13. Bilateral lower extremity venous insufficiency Manage patient to follow-up with PCP for outpatient management 14. Suspected pneumonia with Klebsiella pneumonia ? Patient has elevated WBC count with a left shift. CT of the chest obtained the day prior demonstrated infiltrate at the bases of both lungs. Patient subsequently started on ceftriaxone and azithromycin. Also did send for sputum and blood culture ? 04/19/2025; sputum cultures came out positive for Klebsiella pneumonia remains on appropriate antibiotic therapy 15. Physical deconditioning ? Requested for PT OT eval and social security benefits interviewer to assist with discharge planning ? 04/25/2025; did have a discussion with patient about possibility of being to a [facility] facility for possible rehab ? 04/26/2025; patient did not meet criteria to be discharged to a [facility] facility. Plan therefore will be to discharge patient home with home health 16. DVT prophylaxis ? Patient is on apixaban held prior to patient thoracocentesis resumed subsequently Time spent in the patient's overall evaluation,decision-making process, review of diagnostic data, adjustment of management, discussion with other providers, nursing nursing, ancillary staff as well as patient's family involved in patient's care documentation, 35 Medications at Discharge Home Medications gabapentin 300 mg capsule (Neurontin) 300 mg PO QHS Neuropathy 09/30/17 levothyroxine 100 mcg tablet 100 mcg PO DAILY thyroid 09/30/17 lisinopril 40 mg tablet 40 mg PO DAILY blood pressure 09/30/17 metformin 500 mg 24 hr tablet,extended release (gastric retention) 500 mg PO BID diabetes 09/30/17 pentoxifylline 400 mg tablet,extended release 1 tab PO TID circulation 09/30/17 acetaminophen 500 mg tablet (Acetaminophen Extra Strength) 1,000 mg PO QHS PRN pain 01/08/25 cetirizine 10 mg tablet (24Hour Allergy) 10 mg PO DAILY PRN allergy symptoms 01/08/25 diosmin complex no.1 630 mg tablet (Vasculera) 1 tab PO DAILY 01/08/25 cvpcxeawjakd-nptmfiun-hvplst tablet (A Thru Z High Potency tablet) 1 tab PO DAILY vitamin 01/08/25 simvastatin 20 mg tablet 20 mg PO QHS cholesterol 01/08/25 apixaban 5 mg tablet (Eliquis) 5 mg PO BID blood thinner 90 days #180 tabs 01/23/25 diltiazem HCl 240 mg capsule,extended release 24 hr (Cardizem CD) 240 mg PO DAILY heart rate 3 months #90 caps 01/23/25 metoprolol tartrate 50 mg tablet 50 mg PO BID blood pressure 90 days #180 tabs 01/23/25 biotin 5,000 mcg sublingual tablet 5,000 mcg sublingual DAILY supplement 04/16/25 semaglutide 0.25 mg or 0.5 mg (2 mg/1.5 mL) subcutaneous pen injector (Ozempic) 0.5 mg subcut QWEEK diabetes 04/16/25 amiodarone 200 mg tablet 200 mg PO BID #60 tabs 04/26/25 guaifenesin 600 mg tablet, extended release 12 hr (Mucinex) 600 mg PO BID #20 tabs 04/26/25 metolazone 5 mg tablet 5 mg PO DAILY #30 tabs 04/26/25 Physical Exam Narrative GENERAL: Cooperative HEENT: Atraumatic; normocephalic EYES; Anicteric, Normal Conjunctiva NECK; supple, normal thyroid, RESPIRATORY: Diminished to auscultation, CARDIOVASCULAR: Irregular S1-S2 but rate controlled GI: soft, normoactive bowel sounds, : No Renal angle tenderness; EXTREMITIES: Bipedal edema, with stasis dermatitis MUSCULOSKELETAL: no muscle wasting NEURO: Awake; no lateralizing signs. SKIN: No Rash PSYCH; Flat affect Weight / BMI Weight Weight: 93.1 kg Body Mass Index (BMI) 38.7 ABG / Lab / Microbiology Data 04/26/25 06:40 04/26/25 06:40 Laboratory: Laboratory Results - last 24 hr 04/25/25 16:37: POC Glucose 147 H 04/25/25 22:26: POC Glucose 139 H 04/26/25 06:37: POC Glucose 142 H 04/26/25 06:40: WBC 11.1 H, RBC 3.00 L, Hgb 8.4 L, Hct 26.7 L, MCV 89.0, MCH 28.0, MCHC 31.5 L, RDW Std Deviation 52.7 H, RDW Coeff of Marcial 16.3 H, Plt Count 297, MPV 9.9, Immature Gran % (Auto) 0.700, Neut % (Auto) 82.2 H, Lymph % (Auto) 8.5 L, [place] % (Auto) 5.8, Eos % (Auto) 2.4, Baso % (Auto) 0.4, Absolute Neuts (auto) 9.1 H, Absolute Lymphs (auto) 0.95, Nucleated RBC % 0, Sodium 140, Potassium 4.0, Chloride 107, Carbon Dioxide 26.0, Anion Gap 7, BUN 46 H, Creatinine 1.15, Estim Creat Clear Calc 37.22 L, Est GFR (MDRD) Non-Af 47 L, B UN/Creatinine Ratio 39.6 H, Glucose 150 H, Calcium 8.6 Microbiology: Microbiology 04/22/25 14:10 Fluid - Thoracentesis Fluid Gram Stain - Final 04/22/25 14:10 Fluid - Thoracentesis Fluid Body Fluid Culture - Preliminary No growth-Final to follow 04/22/25 14:10 Fluid - Thoracentesis Fluid Anaerobic Culture - Preliminary No growth in 48 hours. 04/18/25 10:50 Blood Culture (Wb) - Arm Right Blood Culture - Final No growth in 5 days. 04/18/25 11:00 Blood Culture (Wb) - Right Wrist Blood Culture - Final No growth in 5 days. 04/16/25 16:16 Sputum, Expectorated/Coughed Gram Stain - Final 04/16/25 16:16 Sputum, Expectorated/Coughed Respiratory Culture - Final Klebsiella pneumoniae sp pneum 04/18/25 10:51 Mucosa - Nasopharyngeal Respiratory Panel (PCR) - Final 04/18/25 10:00 Urine Catheter - Metzger Legionella Antigen - Final 04/18/25 10:00 Urine Catheter - Metzger Streptococcus pneumoniae Antigen (M - Final 04/18/25 10:51 Mucosa - Nasopharyngeal Coronavirus COVID-19 PCR - Final D/C Instructions Discharge Diet: Low fat / Low cholesterol, 1800 Calorie Control Diet, 8 Cup Fluid Restriction and 2000 mg Sodium Diet DC O2, CPAP, BIPAP Needs Home O2 Discharge instructions: No Meaningful Use Info Meaningful Use Meaningful Use Diagnoses (Choose all that apply): CHF CHF EMILIE/ARB ordered at discharge?: No Reason EMILIE/ARB not ordered?: Not indicated Documented LVEF (%): 55 Ischemic Stroke Statin Dosing Therapy Reference: STATIN DOSE THERAPY REFERENCE: * Patients > 75 years receive moderate or high dose statin therapy. * Patients 75 years or YOUNGER should receive HIGH intensity statin dose unless contraindicated. You will be required to document reason for non-treatment if statin daily dose does not meet guidelines. HIGH DOSE STATIN THERAPY DAILY Atorvastatin > than or = to 40 mg Rosuvastatin > than or = to 20 mg Amlodipine + Atorvastatin > than or = to 2.5/40 mg Ezetimibe + Simvastatin 10/80 mg Simvastatin 80mg Discharge Plan Admission Admit Date/Time: 04/16/25 13:59 Attending Provider: Amado Bailey Primary Care Provider: Ras Childress Consulting Providers: Ras Blas; Koki Mcnulty; Migel Akins; Oscar Parmar; Nagi Martin; Jae Wong; Yang Rogers; Mason Rodriguez; Franko Shaw; Rich Hand; Aurora Huerta; Reji Aguilar; Eric Stanford; Babak Kilpatrick; Ten Turner; Claudia Gomes; Roger Murphy; Nitish Monsivais; Mary Lang; Gustavo Avila; Darien Barry; Amado Cortez; Heron Sosa; Gaudencio Garrison; Edward Le; Chris Fields; Aubrey De Luna; Melissa Garcia Discharge Orders/Prescriptions Prescriptions: New amiodarone 200 mg Tablet 200 mg PO BID Qty: 60 0RF metolazone 5 mg Tablet 5 mg PO DAILY Qty: 30 0RF guaifenesin [Mucinex] 600 mg Tablet Extended Release 12hr 600 mg PO BID Qty: 20 0RF Continued Eliquis 5 mg tablet 5 mg PO BID 90 Days Qty: 180 3RF diltiazem HCl [Cardizem CD] 240 mg capsule,extended release 24hr 240 mg PO DAILY 90 Days Qty: 90 3RF Rx Instructions: Hold for heart less than 50 or systolic blood pressure less than 100 mmHg. metoprolol tartrate 50 mg tablet 50 mg PO BID 90 Days Qty: 180 3RF Rx Instructions: Hold for heart less than 50 or systolic blood pressure less than 100 mmHg. levothyroxine 100 MCG tablet 100 mcg PO DAILY gabapentin [Neurontin] 300 MG capsule 300 mg PO QHS lisinopril 40 MG tablet 40 mg PO DAILY metformin 500 MG tablet,ER mynor.retention 24 hr 500 mg PO BID pentoxifylline 400 MG tablet 1 tab PO TID simvastatin 20 mg tablet 20 mg PO QHS Patient Comments: [NO ORIGINAL SIG] Vasculera 630 mg tablet 1 tab PO DAILY A Thru Z High Potency Tablet 1 tab PO DAILY cetirizine [24Hour Allergy] 10 mg tablet 10 mg PO DAILY PRN (Reason: allergy symptoms) acetaminophen [Acetaminophen Extra Strength] 500 mg tablet 1,000 mg PO QHS PRN (Reason: pain) biotin 5,000 mcg tablet, sublingual 5,000 mcg sublingual DAILY Ozempic 0.25 mg or 0.5 mg(2 mg/1.5 mL) pen injector 0.5 mg subcut QWEEK Rx Instructions: for 4 weeks Discontinued furosemide 40 mg tablet 40 mg PO DAILY 90 Days Qty: 90 3RF Rx Instructions: Take extra 40 mg dose at 5 PM for increased leg swelling or weight gain 5 pounds in 1 week. Referrals / Follow Up: Meena Vasquez MD [Med Staff - Recruitment Advertising Manager] - Within 1 Week Edward Le MD [Med Staff - Active Staff] - Within 2 Weeks ([facility]) Melissa Garcia MD [Med Staff - Consulting] - Within 2 Weeks (Will call directly from office to schedule ) Disposition Disposition (needs filled in before D/C Order can be placed): Home Health Service Charges/Coding Visit Charges Inpatient E&M: 47892 Disch Hosp >30min
--- NOTE | 2025-04-26 10:52 | CASEMGMT ---
Addendum entered by Joyce Marcus 04/26/25 12:59: Patient was accepted by [facility], start of care planned for Tuesday. RN CM in to updated patient and family. Patient and family denied further needs or help. Patient had no further questions. Original Note: RN CM in to discuss needs at discharge. RN CM discussed HHC, patient agreeable to [facility] and prefers [facility], declined list. Patient declines further needs or concerns. RN CM called [facility] and made referral, awaiting acceptance. CM will continue to follow this patient and plan for a safe discharge.
[2025-04-26 10:55] VITALS: O2SAT 92; O2SAT 97
[2025-04-26 11:24] VITALS: BMI 38.7
[2025-04-29 09:26] LABS: Cytology, Body Fluid / CSF SEE PATHOLOGY REPORT
[2025-05-03 10:30] LABS: Pathologist Comment/Body Fluid Reviewed
[2025-05-03 10:31] LABS: Pathologist Comment/Body Fluid Reviewed
[2025-05-14 11:22] LABS: Lymphocytes 32 %; Mesothelial Cells 2 %; Neutrophil (Segs) 29 %
[2025-05-14 11:23] LABS: Macrophages 37 %
== END 2025-04-26 13:19 | disposition home health service (06) | DRG 291 ==
LOC: ED 13:34 → PCU 14:07 → ICU 04-20 19:18 → PCU 04-24 17:59
PROVIDERS: Internal Medicine Critical Care Medicine; Internal Medicine Interventional Cardiology; Internal Medicine Nephrology; Nurse Practitioner Adult Health; Radiology Diagnostic Radiology; Emergency Provider Surgery; PCP Pharmacist; Visit Provider Internal Medicine
DX: I13.0 Hypertensive heart and chronic kidney disease with heart failure and stage 1 through stage 4 chronic kidney disease, or unspecified chronic kidney disease (principal); J15.0 Pneumonia due to Klebsiella pneumoniae; J96.01 Acute respiratory failure with hypoxia; I50.33 Acute on chronic diastolic (congestive) heart failure; J90 Pleural effusion, not elsewhere classified; N17.9 Acute kidney failure, unspecified; J98.11 Atelectasis; N18.31 Chronic kidney disease, stage 3a; E11.22 Type 2 diabetes mellitus with diabetic chronic kidney disease; E03.9 Hypothyroidism, unspecified; E66.812 Obesity, class 2; Z95.2 Presence of prosthetic heart valve; I48.0 Paroxysmal atrial fibrillation; E78.5 Hyperlipidemia, unspecified; I87.2 Venous insufficiency (chronic) (peripheral); I95.2 Hypotension due to drugs; T46.1X5A Adverse effect of calcium-channel blockers, initial encounter; T44.7X5A Adverse effect of beta-adrenoreceptor antagonists, initial encounter; Z66 Do not resuscitate; Z68.38 Body mass index [BMI] 38.0-38.9, adult; Z79.01 Long term (current) use of anticoagulants; Z79.84 Long term (current) use of oral hypoglycemic drugs; Z79.85 Long-term (current) use of injectable non-insulin antidiabetic drugs; Z79.890 Hormone replacement therapy; Z79.899 Other long term (current) drug therapy
CPT/HCPCS: 32555; 36415; 71045; 71046; 71250; 76770; 80048; 81001; 82570; 82945; 82962; 83036; 83615; 83735; 83880; 84100; 84155; 84156; 84157; 84165; 84484; 84540; 85025; 85610; 85730; 86037; 86038; 86160; 86225; 87040; 87070; 87075; 87077; 87186; 87205; 87449; 87633; 87635; 88108; 88305; 88313; 88341; 88342; 89050; 93005; 93306; 94002; 94640; 94660; 94668; 94762; 97116; 97162; 97166; 97530; 97535; 97802; 97803; 99252; 99285; Q9957; A4216; G0463; J0696; J1938; J2405

== ENCOUNTER 2025-04-26 20:36 | Inpatient (IN) | payer MEDICARE, SELFPAY ==
[2025-04-26] VITALS (11 sets, daily range): BP systolic 58–109; BP diastolic 41–86; PULSE 114–130; RESP 16–30; TEMP 36.5–37.2; O2SAT 97–100; BMI 39.5; BMI 39.7
--- NOTE | 2025-04-26 21:04 | EKG12_ITS ---
Test Reason : SOB Blood Pressure : */* mmHG Vent. Rate : 122 BPM Atrial Rate : * BPM P-R Int : * ms QRS Dur : 160 ms QT Int : 404 ms P-R-T Axes : * -46 -57 degrees QTcB Int : 575 ms Atrial fibrillation with rapid ventricular response Right bundle branch block Left anterior fascicular block Bifascicular block Abnormal ECG Confirmed by YADY HENDERSON, DAYSI ([id number]), photo editor KYRA CASTANEDA ([id number]) on 04/29/2025 6:55:32 AM Referred By: Confirmed By: DAYSI CONTEH MD
--- OUTSIDE RECORDS SUMMARY | 2025-04-26 21:05 | XMS RPT_ITS | CCD ---
Author Organization [facility] Care Team Providers Care Services Coordinator Name Role Phone DENISE FINK Unavailable Unavailable Jeana Guerra MD Primary Care Provider Jeana Guerra MD Primary Care Provider Avinash Barbosa MD Unavailable Roger Reynolds MD Unavailable [phone] Jeana Guerra MD Primary Care Provider Jeana Guerra MD Primary Care Provider Avinash Barbosa MD Unavailable Roger Reynolds MD Unavailable Jeana Guerra MD Primary Care Provider Jeana Guerra MD Primary Care Provider Avinash Barbosa MD Unavailable GANTA JEANA C Primary Care Unavailable GANTA, JEANA C Referring Unavailable ADRIAN JEONG Attending Unavailable GANTA, JEANA C Primary Care Unavailable CHEONDOISM, AMY Attending Unavailabl e CHEONDOISM, AMY Referring Unavailabl e GANTA, JEANA C Primary Care Unavailable CHEONDOISM, AMY Attending Unavailabl e CHEONDOISM, AMY Referring Unavailabl e Rosemarie Taylor PA-C Unavailable [phone] Older 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 Jeana Guerra MD Primary Care Provider Julius HENDERSON, Dr. Khanna Emergency Provider Octaviano HENDERSON, Dr. Cowart Admit Provider Octaviano HENDERSON, Dr. Cowart Attending Provider Ibrahima HENDERSON, Dr. Duarte Other Provider Octaviano HENDERSON, Dr. Cowart Other Provider Ibrahima HENDERSON, Dr. Duarte Attending Provider Marge CLAY-CBetsy Attending Provider Aby Tierney Attending Provider Dr. Jeana Guerra MD Referring Provider Magdi Pedroza Attending Provider Magdi Pedroza Referring Provider Kina DA SILVA, Dr. Evans Emergency Provider Roopa DA SILVA, Dr. Mcginnis Admit Provider Dr. Ras Blas DO Attending Provider Roopa DA SILVA, Dr. Mcginnis Referring Provider GANTA, JEANA Attending Unavailable GANTA, JEANA Primary Care Unavailable GANTA, JEANA Referring Unavailable GANTA, JEANA Primary Care Unavailable MIRANDA DE Attending Unavailable TESTMIRANDA CRUZ Referring Unavailable GANTA, JEANA Primary Care Unavailable GANTA, JEANA Attending Unavailable GANTA, JEANA Primary Care Unavailable GANTA, JEANA Primary Care Unavailable GANTA, JEANA Attending Unavailable GANTA, JEANA Primary Care Unavailable GANTA, JEAAN Referring Unavailable GANTA, JEANA Primary Care Unavailable TESTMIRANDA CRUZ Attending Unavailable GANTA, JEANA Primary Care Unavailable GANTA, JEANA Attending Unavailable GANTA, JEANA Primary Care Unavailable Jack Lek Attending Unavailable Ganta, Jeana Primary Care Unavailable Ras Childress W Primary Care Unavailable Ras Blas Consulting Unavailable Ras Blas Admitting Unavailable Amado Bailey Attending Unavailable Ras Blas Referring Unavailable Aljunyulia, Lamia Consulting Unavailable Tashi, Migel Consulting Unavailable Oscar Parmar Consulting Unavailable Mario, Nagi Consulting Unavailable Jae Wong Consulting Unavailable Yang Rogers Consulting Unavailable Dhesi, Mason Consulting Unavailable Valeria, Franko Consulting Unavailable Blaise Handothy Consulting Unavailable Aurora Huerta Consulting Unavailable Reji Aguilar Consulting Unavailable Abdoulaye, Eric Consulting Unavailable Babak Kilpatrick Consulting Unavailable Ten Turner Consulting Unavailable Claudia Gomes Consulting UnavailRoger Machado Consulting Unavailable Nitish Monsivais Consulting Unavailable Mary Lang Consulting Unavailable Gustavo Avila Consulting Unavailable Darien Barry Consulting Unavailable Amado Cortez Consulting Unavailable Heron Sosa Consulting Unavailable Gaudencio Garrison Consulting Unavailable Edward Le Consulting Unavailable Chris Fields Consulting Unavailable Aubrey De Luna Consulting Unavailable Paul Garciayabunny Consulting Unavailable Edward Le Attending Unavailable Amado Bailey Consulting Unavailable Octaviano, Supa Attending Unavailable Octaviano, Supa Admitting Unavailable Ibrahima, Gerald Consulting Unavailable Ganta, Jeana Primary Care Unavailable Octaviano, Supa Consulting Unavailable Mckayla Vilchis Attending Unavailable Ras Blas Attending Unavailable Ganta, Jeana Primary Care Unavailable Ibrahima, Gerald Attending Unavailable Aubrey De Luna Attending Unavailable Betsy Bird Attending Unavailable Aby Tierney Attending Unavail able Jae Wong Attending Unavailable Chris Fields Attending Unavailable MarquitaiterErnestineMagdi Referring Unavailable DemiterErnestineMagdi Attending Unavailable Ganta, Jeana Primary Care Unavailable Ernestine Thomasyler Attending Unavailable Ganta, Jeana Primary Care Unavailable Ganta, Jeana Referring Unavailable Ganta, Jeana Primary Care Unavailable Ernestine Thomasyler Attending Unavailable Demiter, Magdi Referring Unavailable Octaviano, Supa Attending Unavailable Ibrahima, Gerald Consulting Unavailable Octaviano, Supa Admitting Unavailable Ganta, Jeana Primary Care Unavailable Allergies Allergy Classification Reported Allergen(s) Allergy Type Date of Onset Reaction(s) Facility Enoxaparin (1 source) Enoxaparin Drug Allergy 2 Rash, Itching [facility] Opioid Agonists (2 sources) Codeine Drug Allergy 8 GI Upset, Mental Status Change, Other: See Comments [facility] Penicillins (antibiotic) (1 source) Penicillins Drug Allergy 8 Rash, Other: See Comments [facility] (20 sources) codeine; 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: [CODEINE] Drug Allergy 8 GI Upset [facility] (20 sources) enoxaparin; 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: [ENOXAPARIN SODIUM] Drug Allergy 2 Rash, Itching [facility] (20 sources) oxyCODONE; 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: [OXYCODONE] Drug Allergy 8 Other: See Comments, Mental Status Change [facility] (20 sources) Penicillins; 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: [PENICILLINS] Propensity to adverse reactions to drug (disorder) 8 Other: See Comments, Rash [facility] (13 sources) Penicillin G Drug Allergy 9 Rash [facility] (5 sources) Enoxaparin Drug Allergy 7 Unknown [facility] (1 source) Enoxaparin Drug Allergy 5 [facility] Repository Medications Current Medications Medication Drug Class(es) Dates Sig (Normalized) Sig (Original) acetaminophen 500 mg oral tablet (20 sources) Start: 01-08-2025 take 2 tablets by mouth at bedtime as needed for pain Acetaminophen (Acetaminophen Extra Strength) 500 mg tablet Active 1000 mg PO AT BEDTIME as needed for pain January 08, 2025 1:00am take 2 tablets by mo uth at bedtime as needed Acetaminophen 500 MG Cap 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 Active Comment on above: Take 1,000 mg by alfonso th every 6 hours as needed. ALIGN PROBIOTIC RESISTANCE CAPSULE (4 sources) take 1 capsule by mouth once daily ALIGN PROBIOTIC RESISTANCE CAPSULE Take 1 capsule by mouth once daily. Active amLODIPine 5 mg oral tablet (20 sources) Dihydropyridine Calcium Channel John Start: 04-11-20 23 End: 03-29-20 24 take 1 tablet by mouth twice daily amLODIPine (NORVASC) 2.5 mg tablet Indications: Essential hypertension Take 1 tablet by mouth twice daily. 180 tablet 3 04/11/2023 03/29/2024 Discontinued Start: 09-21-2021 End: 03-22-2022 take 1 tablet by mouth twice daily amLODIPine (NORVASC) 2.5 mg tablet Indications: Essential hypertension Take 1 tablet by mouth twice daily. 180 tablet 3 03/22/2022 Active Start: 09-30-2017 End: 01-11-2025 take 1 tablet by mouth twice daily amLODIPine (NORVASC) 5 mg tablet Indications: Essential hypertension Take 1 tablet by mouth two times a day. 180 tablet 3 04/12/2024 Active Start: 09-30-2017 take 5 mg by mouth once daily Amlodipine Active 5 MG PO DAILY September 30, 2017 1:00am take 2 tablets by mo uth once daily, then take 2.5 tablets by mouth in the morning amLODIPine 2.5 MG PO TABS Take 2 tablets by mouth daily. 5 mg at night and 2.5 in the am Active Comment on above: Take 1 tablet by alfonso twice daily. apixaban 5 mg oral tablet (12 sources) Factor Xa Inhibitor Start: 01-11-20 End: 01-24-20 take 1 tablet by mouth twice daily apixaban (ELIQUIS) 5 mg tab(s) Take 1 tablet by mouth two times a day. 01/22/2025 Active azelastine hydrochloride 0.137 mg/actuat / fluticasone propionate 0.05 mg/actuat metered dose nasal spray (8 sources) Corticosteroid, Histamine-1 Receptor Antagonist Start: 01-08-20 take 1 spray(s) nasal route twice daily azelastine-fluticaso ne (DYMISTA) 137-50 mcg/spray nasal spray Indications: Vasomotor rhinitis , Post-nasal drip Use 1 [place] in each nostril two times a day. 23 g 5 01/08/2025 Active betamethasone 0.5 mg/ml topical cream (20 sources) Corticosteroid Start: 06-13-20 19 betamethasone dipropionate (DIPROSONE) 0.05 % cream Indications: Contact dermatitis and eczema Apply to rash on neck once or twice a day as needed. 45 g 1 06/13/2019 Active Comment on above: Apply to rash on nec k once or twice a day as needed. biotin 5 mg sublingual tablet (20 sources) Start: 04-16-20 25 take 1 tablet under the tongue once daily Biotin 5,000 mcg tablet, sublingual Active 5000 ug SL DAILY April 16, 2025 12:00am Biotin 5000 MCG capsule Take 1 capsule by mouth. Active BIOTIN ORAL Take 5,000 mcg by mouth. Active BIOTIN ORAL Take 5,000 mcg by mouth. 0 Active Comment on above: Take 5,000 mcg by [facility]. cetirizine hydrochloride 10 mg oral tablet (7 sources) Histamine-1 Receptor Antagonist Start: take 1 tablet by mouth once daily as needed Cetirizine (24hour Allergy) 10 mg tablet Active 10 mg PO DAILY as needed for allergy symptoms January 08, 2025 1:00am Cetirizine 10 mg cap Take by mouth as needed (allergies). Active ciprofloxacin 250 mg oral tablet (1 source) Quinolone Antimicrobial Start: 04-07-2022 End: 04-17-2022 take 1 tablet by mouth twice daily ciprofloxacin HCl (CIPRO) 250 mg tablet Take 1 tablet by mouth twice daily for 10 days. 20 tablet 0 04/07/2022 04/17/2022 Active Comment on above: Take 1 tablet by [facility] twice daily for 10 days. Dietary Management Product (Vasculera) tablet (15 sources) Start: 09-10-2024 Dietary Management Product (Vasculera) tablet Indications: Leg swelling , Lipodermatosclerosis of both lower extremities , Lymphedema , Chronic venous insufficiency One daily 90 tablet 3 09/10/2024 Active Start: 09-05-2023 End: 09-10-2024 Dietary Management Product ( Vasculera) tablet One daily 90 tablet 3 09/05/2023 09/10/2024 Discontinued (Reorder) Start: 09-05-2023 Dietary Manage ment Product (Vasculera) tablet One daily 90 tablet 3 09/05/2023 Active Start: 02-07-2023 End: 09-05-2023 Dietary Management Product ( Vasculera) tablet One daily 90 tablet 3 02/07/2023 09/05/2023 Discontinued (Reorder) Start: 01-24-2023 Dietary Manage ment Product (Vasculera) tablet One daily 15 tablet 0 01/24/2023 Active 24 hr dilTIAZem hydrochloride 240 mg extended release oral capsule (12 sources) Calcium Channel John Start: 01-11-2025 End: 01-23-2025 take 1 capsule by mouth once daily dilTIAZem CD (CARDIZEM CD) 240 mg 24 hr capsule Take 1 capsule by mouth once daily. 90 capsule 01/22/2025 Active diosmin complex no.1 (VASCULERA) 630 mg tab (20 sources) take 1 tablet by mouth once daily diosmin complex no.1 (VASCULERA) 630 mg tab Take 1 tablet by mouth once daily. Active take 1 tablet by mouth once nini y diosmin complex no.1 (VASCULERA) 630 mg tab Take 1 tablet by mouth once daily. 0 Active Comment on above: [facility] Diosmin Complex No.1 (Vasculera) 630 mg tablet (3 sources) Start: 01-08-2025 Diosmin Complex No.1 (Vasculera) 630 mg tablet Active 1 {tbl} PO DAILY January 08, 2025 1:00am doxycycline monohydrate 100 mg oral capsule (1 source) Tetracycline-class Drug Start: 12-22-2024 End: 12-27-2024 take 1 capsule by mouth twice daily doxycycline monohydrate (MONODOX) 100 mg capsule Indications: Acute non-recurrent sinusitis, unspecified location Take 1 capsule by mouth two times a day for 5 days. 10 capsule 12/22/2024 12/27/2024 Active furosemide 40 mg oral tablet (12 sources) Loop Diuretic Start: 01-22-2025 take 3 tablets by mouth once daily furosemide (LASIX) 40 mg tablet Take 3 tablets by mouth once daily. 270 tablet 01/22/2025 Active Start: 01-11-2025 End: 01-23-2025 take 1 tablet by mouth once daily in the evening, then take 5 tablets by mouth every week Furosemide 40 mg tablet Active 40 mg PO DAILY 90 90 January 23, 2025 12:56pm Take extra 40 mg dose at 5 PM for increased leg swelling or weight gain 5 pounds in 1 week. gabapentin 300 mg oral capsule (20 sources) Anti-epileptic Agent Start: 09-30-2017 End: 03-04-2026 take 1 capsule by mouth once daily gabapentin (NEURONTIN) 300 mg capsule Indications: Type 2 diabetes mellitus with peripheral neuropathy (HCC) Take 1 capsule by mouth once daily. 90 capsule 3 03/04/2025 03/04/2026 Active Comment on above: Take 1 capsule by mo [facility] once daily. L.Acidoph, Paracasei,B. Lactis (2 sources) Start: 09-30-2017 take 1 capsule by mouth once daily L.Acidoph, Paracasei,B. Lactis Active 1 CAPSULE PO DAILY September 30, 2017 1:00am levothyroxine sodium 0.1 mg oral tablet (20 sources) l-Thyroxine Start: 09-30-2017 End: 03-04-2025 take 1 tablet by mouth once daily levothyroxine (SYNTHROID) 100 mcg tablet Indications: Hypothyroidism, adult Take 1 tablet by mouth once daily. 90 tablet 3 03/04/2025 Active Comment on above: Take 1 tablet by alfonso th once daily. Liraglutide (Victoza 2-[place]) 0.6 MG/0.1 ML pen injector (3 sources) Start: 09-30-2017 Liraglutide (Victoza 2-[place]kin) 0.6 MG/0.1 ML pen injector Active 1.2 mg SQ WITH BREAKFAST September 30, 2017 1:00am lisinopril 40 mg oral tablet (20 sources) Angiotensin Converting Enzyme Inhibitor Start: 09-30-2017 End: 03-04-2025 take 1 tablet by mouth once daily lisinopril (ZESTRIL) 40 mg tablet Take 1 tablet by mouth once daily. 90 tablet 3 03/04/2025 Active Start: 09-30-2017 take 10 mg by mouth once daily Lisinopril 40 MG tablet Active 40 mg PO DAILY September 30, 2017 1:00am On Hold: Hold for SBP less than 130 mmHg. Follow with PCP and may decrease the dose to 10 mg daily. Comment on above: Take 1 tablet by alfonso th once daily. 24 hr metFORMIN hydrochloride 500 mg extended release oral tablet (20 sources) Biguanide Start: 3 End: take 1 tablet by mouth once daily at breakfast metFORMIN ER (GLUCOPHAGE XR) 500 mg 24 hr tablet Indications: Type 2 diabetes mellitus with peripheral neuropathy (HCC) Take 1 tablet by mouth daily with breakfast. 03/04/2025 Active Start: 09-21-2021 End: 03-22-2022 take 2 tablets by mouth once daily metFORMIN ER (GLUCOPHAGE XR) 500 mg 24 hr tablet Indications: Type 2 diabetes mellitus with peripheral neuropathy (HCC) Take 2 tablets by mouth once daily. 180 tablet 3 03/22/2022 Active Start: 09-30-2017 take 1 tablet by alfonso th twice daily Metformin 500 MG tablet,ER mynor.retention 24 hr Active 500 mg PO TWICE A DAY September 30, 2017 1:00am take 1 tablet by alfonso th twice daily metformin 500 MG PO TABS Take 1 tablet by mouth 2 times daily. Active Comment on above: Take 2 tablets by mo [facility] once daily. metoprolol tartrate 50 mg oral tablet (12 sources) beta-Adrenergic John Start: 01-11-2025 End: 01-22-2026 take 1 tablet by mouth twice daily metoprolol tartrate, short acting, (LOPRESSOR) 50 mg tablet Take 1 tablet by mouth two times a day. 180 tablet 3 01/22/2025 01/22/2026 Active multivitamin PO TABS (13 sources) take 1 tablet by mouth once daily multivitamin PO TABS Take 1 tablet by mouth daily. Active take 1 tablet by mouth once nini y multivitamin PO TABS Take 1 tablet by mouth daily. 0 Active take 1 tablet by mouth once nini y multivitamin PO TABS take 1 Tab by mouth Daily. 0 Active Dczwpckzjodp-Bymzuetm-Gddbau (A Thru Z High Potency) tablet (3 sources) Start: 01-08-2025 Fjjktnykogcf-Ouymriut-Uvvwty (A Thru Z High Potency) tablet Active 1 {tbl} PO DAILY January 08, 2025 1:00am multivitamins(DAILY MULTIVITAMIN TAB) (20 sources) Start: 12-02-2008 multivitamins(DAILY MULTIVITAMIN TAB) Take one(1) tablet daily. 0 12/02/2008 Active Comment on above: Take one(1) tablet d aily. mupirocin 0.02 mg/mg topical ointment (20 sources) RNA Synthetas e Inhibitor Antibacte rial Start: 03-30-2019 mupirocin (BACTROBAN) 2 % ointment Apply 1 application to affected area twice daily. 15 g 03/30/2019 Active Comment on above: Apply 1 application to affected area twice daily. pentoxifylline 400 mg extended release oral tablet (20 sources) Blood Viscosity Purchaser Start: 09-30-2017 End: 01-08-2025 take 1 tablet by mouth three times daily pentoxifylline ER (TRENTAL) 400 mg CR tablet Take 1 tablet by mouth three times a day. 90 tablet 3 03/29/2024 Active Start: 09-30-2017 Pentoxifylline 400 MG tablet Active 1 {tbl} PO THREE TIMES A DAY September 30, 2017 1:00am Comment on above: Take 1 tablet by alfonso th three times daily. Take 1 tablet by alfonso th three times a day. semaglutide (OZEMPIC) 0.25 mg or 0.5 mg (2 mg/3 mL) pen (12 sources) Start: 03-04-2025 semaglutide (OZEMPIC) 0.25 mg or 0.5 mg (2 mg/3 mL) pen Indications: Type 2 diabetes mellitus with peripheral neuropathy (HCC) , Diabetic polyneuropathy associated with type 2 diabetes mellitus (HCC) , Class 2 severe obesity with serious comorbidity and body mass index (BMI) of 36.0 to 36.9 in adult, unspecified obesity type (HCC) Inject 0.5 mg subcutaneously one time a week. 9 mL 1 03/04/2025 Active Start: 02-21-2025 End: 03-04-2025 semaglutide (OZEMPIC) 0.25 m g or 0.5 mg (2 mg/3 mL) pen Indications: Type 2 diabetes mellitus with peripheral neuropathy (HCC) , Diabetic polyneuropathy associated with type 2 diabetes mellitus (HCC) , Class 2 severe obesity with serious comorbidity and body mass index (BMI) of 36.0 to 36.9 in adult, unspecified obesity type (HCC) Inject 0.5 mg subcutaneously one time a week. 9 mL 1 02/21/2025 03/04/2025 Discontinued Start: 02-21-2025 semaglutide (O ZEMPIC) 0.25 mg or 0.5 mg (2 mg/3 mL) pen Indications: Type 2 diabetes mellitus with peripheral neuropathy (HCC) , Diabetic polyneuropathy associated with type 2 diabetes mellitus (HCC) , Class 2 severe obesity with serious comorbidity and body mass index (BMI) of 36.0 to 36.9 in adult, unspecified obesity type (HCC) Inject 0.5 mg subcutaneously one time a week. 9 mL 1 02/21/2025 Active Start: 12-17-2024 End: 02-21-2025 semaglutide (OZEMPIC) 0.25 m g or 0.5 mg (2 mg/3 mL) pen Indications: Type 2 diabetes mellitus with peripheral neuropathy (HCC) , Diabetic polyneuropathy associated with type 2 diabetes mellitus (HCC) , Class 2 severe obesity with serious comorbidity and body mass index (BMI) of 36.0 to 36.9 in adult, unspecified obesity type (HCC) Inject 0.5 mg subcutaneously one time a week. 3 mL 1 12/17/2024 02/21/2025 Discontinued Start: 12-17-2024 semaglutide (O ZEMPIC) 0.25 mg or 0.5 mg (2 mg/3 mL) pen Indications: Type 2 diabetes mellitus with peripheral neuropathy (HCC) , Diabetic polyneuropathy associated with type 2 diabetes mellitus (HCC) , Class 2 severe obesity with serious comorbidity and body mass index (BMI) of 36.0 to 36.9 in adult, unspecified obesity type (HCC) Inject 0.5 mg subcutaneously one time a week. 3 mL 1 12/17/2024 Active simvastatin 20 mg oral tablet (20 sources) HMG-CoA Reductase Inhibitor Start: 03-06-2025 take 1 tablet by mouth once daily at bedtime simvastatin (ZOCOR) 20 mg tablet Indications: Hyperlipidemia, unspecified hyperlipidemia type Take 1 tablet by mouth daily at bedtime. 90 tablet 3 03/06/2025 Active Start: 09-21-2021 End: 03-04-2025 take 1 tablet by mouth at bedtime Simvastatin 20 mg tablet Active 20 mg PO AT BEDTIME January 08, 2025 1:00am Comment on above: Take 1 tablet by alfonso th daily at bedtime. triamcinolone acetonide 1 mg/ml topical cream (20 sources) Corticosteroid Start: 09-10-2024 triamcinolone 0.1 % Cream cream Apply triamcinolone 0.1% cream to irritated area(s) on leg twice daily as needed [no more than twice weekly or use 2 weeks on /2 weeks off] 80 g 1 09/10/2024 Active End: 01-08-2025 take 2 spray(s) by inhalation once daily triamcinolone acetonide (NASACORT) 55 mcg nasal inhaler Use 2 Sprays in the nose once daily. 01/08/2025 Discontinued Completed/Discontinued Medications Medication Drug Class(es) Dates Sig (Normalized) Sig (Original) aspirin 81 mg chewable tablet (20 sources) Platelet Aggregation Inhibitor, Nonsteroidal Anti-inflammatory Drug Start: 09-30-2017 End: 01-11-2025 take 1 tablet by mouth once daily Aspirin 81 MG tablet,chewable Discontinued 81 mg PO DAILY September 30, 2017 1:00am January 11, 2025 9:39am take 1 tablet by mouth once nini y aspirin, enteric coated 81 mg EC tablet Take 81 mg by mouth once daily. Active take 1 tablet by mouth once nini y aspirin 81 MG PO TABS Take 1 tablet by mouth daily. Active Comment on above: Take 81 mg by mouth once daily. atenolol 25 mg oral tablet (20 sources) beta-Adrenergic John Start: 09-30-2017 End: 01-22-2025 take 1 tablet by mouth once daily Atenolol 25 MG tablet Discontinued 25 mg PO DAILY September 30, 2017 1:00am January 11, 2025 9:39am take 0.5 tablet by mouth once da kylah atenolol 50 MG PO TABS Take 0.5 tablets by mouth daily. 0 Active atenolol 50 MG P O TABS take 25 mg by mouth daily. 0 Active Comment on above: Take 1 tablet by alfonso th once daily. 12 hr dextromethorphan hydrobromide 30 mg / guaiFENesin 600 mg extended release oral tablet (3 sources) Uncompetitive P-wfezha-H-aspartate Receptor Antagonist, Sigma-1 Agonist Start: 01-11-2025 End: 04-16-2025 Dextromethorphan-Guaif enesin (Mucinex Dm) 30-600 mg Tablet Extended Release 12 Hr Discontinued 1 {tbl} PO TWICE A DAY 14 7 January 11, 2025 1:00am April 16, 2025 1:26pm fluticasone propionate 0.05 mg/actuat metered dose nasal spray (20 sources) Corticosteroid Start: 07-03-2024 fluticasone 50 MCG/ACT Suspension nasal spray 2 sprays by Does Not Apply route daily. 07/03/2024 Active Start: 03-22-2022 End: 01-08-2025 take 2 spray(s) by mouth once daily fluticasone (FLONASE) 50 mcg/actuation nasal spray Use 2 Sprays in each nostril once daily. Rinse mouth after use. 1 Each 3 10/05/2024 01/08/2025 Discontinued Comment on above: Use 2 Sprays in each nostril once daily. Rinse mouth after use. hydroCHLOROthiazide 25 mg oral tablet (20 sources) Thiazide Diuretic Start: 017 End: 025 take 1 tablet by mouth once daily Hydrochlorothiazide 25 MG tablet Discontinued 25 mg PO DAILY September 30, 2017 1:00am January 11, 2025 9:41am take 0.5 tablet by mouth once da kylah hydrochlorothiazide 50 MG PO TABS Take 0.5 tablets by mouth daily. Active hydrochlorothiaz trey 50 MG PO TABS take 25 mg by mouth daily. 0 Active Comment on above: Take 1 tablet by alfonso th once daily. take 1 tablet daily Ibuprofen (4 sources) Nonsteroidal Anti-inflammatory Drug End: 09-05-2023 IBUPROFEN IB PO take 1-2 tablets by mouth as needed.. Reported on 03/01/2017 0 09/05/2023 Discontinued (Medication Reconciliation (suppress cancel msg)) IBUPROFEN IB PO take 1-2 tablets by mouth as needed.. Reported on 03/01/2017 0 Active AngelitoAcidTonie quiñonesB.Animal is 1 EACH capsule (3 sources) Start: 09-30-2017 End: 01-08-2025 take 1 capsule by mouth once daily Tonie SolerB.Animalis 1 EACH capsule Discontinued 1 CAPSULE PO DAILY September 30, 2017 1:00am January 08, 2025 1:42pm 3 ml liraglutide 6 mg/ml pen injector (20 sources) GLP -1 Rec ept or Ago nis t Start: 09-29-2023 End: 03-29-2025 inject 1.8 mg by subcutane ous injection once daily liraglutide (VICTOZA) 0.6 mg/ 0.1 ml subcutaneous pen injector Indications: Type 2 diabetes mellitus with peripheral neuropathy (HCC) Inject 1.8 mg subcutaneously once daily. 27 mL 3 03/29/2024 01/22/2025 Discontinued Start: 08-16-2022 End: 08-16-2023 inject 1.8 mg by subcutaneous injection once daily liraglutide (VICTOZA) 0.6 mg/ 0.1 ml subcutaneous pen injector Indications: Type 2 diabetes mellitus with peripheral neuropathy (HCC) Inject 1.8 mg subcutaneously once daily. 27 mL 3 08/16/2022 08/16/2023 Active Start: 09-30-2017 End: 06-29-2022 inject 1.2 mg by subcutaneous injection at breakfast Liraglutide (Victoza) 0.6 MG/0.1 ML Pen.Injctr Active 1.2 MG SQ WITH BREAKFAST September 30, 2017 1:00am inject 1.8 mg by sub cutaneous injection once daily Liraglutide (VICTOZA SC) Inject 1.8 mg under the skin daily. Active inject 1.8 mg by sub cutaneous injection once daily Liraglutide (VICTOZA SC) Inject 1.8 mg under the skin daily. 0 Active Comment on above: Inject 1.2 mg subcut aneously once daily. Inject 1.8 mg subcut aneously once daily. MEDICATION, NON-DATABASE (20 sources) End: 03-04-2025 take 1 dose by mouth once take 1 dose by mouth once take 1 dose by mouth once Comment on above: Take by mouth. Vascu larum per vascular surgeon. Unknown dose Multivitamin (Daily Multiple Vitamin) 1 EACH tablet (5 sources) Start: End: take 1 tablet by mouth once daily Multivitamin (Daily Multiple Vitamin) 1 EACH tablet Discontinued 1 NMA PO DAILY September 30, 2017 1:00am January 08, 2025 1:42pm Start: 09-30-2017 take 1 tablet by alfonso th once daily Multivitamin (Daily Multiple Vitamin) 1 EACH tablet Active 1 EACH PO DAILY September 30, 2017 1:00am OTC PRODUCT (20 sources) End: 12-08-2023 OTC PRODUCT Diet Tonic water 6-8oz daily to prevent leg cramps 12/08/2023 Discontinued OTC PRODUCT Diet Tonic water 6-8oz daily to prevent leg cramps 0 Active Comment on above: Diet Tonic water 6-8 oz daily to prevent leg cramps pramipexole dihydrochloride 0.125 mg oral tablet (3 sources) Nonergot Dopamine Agonist Start: 02-07-2023 End: 09-05-2023 Pramipexole Dihydrochloride 0.125 MG tablet Take one tab at dinner and bedtime 180 tablet 3 02/07/2023 09/05/2023 Discontinued (Therapy completed) Start: 01-24-2023 Pramipexole Di hydrochloride 0.125 MG tablet Take one tab at dinner and bedtime 60 tablet 0 01/24/2023 Active sulfamethoxazole 800 mg / trimethoprim 160 mg oral tablet (9 sources) Dihydrofolate Reductase Inhibitor Antibacterial, Sulfonamide Antimicrobial Start: 09-10-2024 End: 09-24-2024 take 1 tablet by mouth twice daily Sulfamethoxazole-trimethoprim 800-160 MG per tablet Indications: Leg swelling , Lipodermatosclerosis of both lower extremities , Lymphedema , Chronic venous insufficiency Take 1 tablet by mouth 2 times daily for 14 days. 14 tablet 1 09/10/2024 09/24/2024 Start: 04-12-2024 End: 04-22-2024 take 1 tablet by mouth twice daily sulfamethoxazole-trimethoprim (BACTRIM D S) 800-160 mg per tablet Take 1 tablet by mouth two times a day for 10 days. 20 tablet 0 04/12/2024 04/22/2024 Active Start: 04-11-2023 End: 04-21-2023 take 1 tablet by mouth twice daily sulfamethoxazole-trimethoprim (BACTRIM D S) 800-160 mg per tablet Indications: Cellulitis, unspecified cellulitis site Take 1 tablet by mouth twice daily for 10 days. 20 tablet 0 04/11/2023 04/21/2023 Active Comment on above: Take 1 tablet by alfonso twice daily for 10 days. Problems Active Problems Problem Classification Problem Date Documented Da te Episodic/Chronic Acquired foot deformities (1 source) Hammer toe; 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: [Other hammer toe(s) (acquired), right foot] Chronic Acute and unspecified renal failure (1 source) Acute kidney failure, unspecified; 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: [Acute kidney failure, unspecified] Onset: 5 Episodic Cancer of breast (20 sources) Intraductal carcinoma in situ of right breast; 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: [Intraductal carcinoma in situ of right breast] Onset: 0 Resolved: 0 Chronic Cardiac dysrhythmias (17 sources) Cardiac arrhythmia; 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: [Cardiac arrhythmia, unspecified] Onset: 5 01-08-2025 Chronic Cardiac dysrhythmias (3 sources) Palpitations; 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: [Palpitations] Onset: 5 01-08-2025 Episodic Chronic kidney disease (9 sources) Chronic kidney disease stage 3A ; 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: [Stage 3a chronic kidney disease (HCC)] Onset: 5 01-08-2025 Chronic Conduction disorders (13 sources) Right bundle branch block; 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: [Unspecified right bundle-branch block] 02-27-2009 Chronic Congestive heart failure; nonhypertensive (10 sources) Acute on chronic heart failure co-occurrent with normal ejection fraction; 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: [Acute on chronic diastolic (congestive) heart failure] Onset: 5 01-22-2025 Chronic Diabetes mellitus with complications (20 sources) Polyneuropathy due to type 2 diabetes mellitus; 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: [Type 2 diabetes mellitus with diabetic polyneuropathy] Onset: 5 Chronic Disorders of lipid metabolism (20 sources) Hyperlipidemia; 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: [Hyperlipidemia, unspecified] Onset: 6 08-25-2016 Chronic Essential hypertension (20 sources) Essential hypertension; 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: [Essential (primary) hypertension] Onset: 9 09-21-2021 Chronic Maintenance chemotherapy; radiotherapy (13 sources) Patient encounter status; 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: [Encounter for antineoplastic radiation therapy] 08-23-2022 Chronic Malaise and fatigue (1 source) Malaise; 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: [Other malaise] 01-08-2025 Episodic Mycoses (8 sources) Onychomycosis; 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: [Tinea unguium] Episodic Nutritional deficiencies (1 source) Nutritional disorder; 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: [Unspecified severe protein-calorie malnutrition] 01-08-2025 Chronic Nutritional deficiencies (3 sources) Nutritional disorder 01-08-2025 Episodic Osteoarthritis (20 sources) Degenerative joint disease involving multiple joints; 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: [Polyosteoarthritis, unspecified] Onset: 2 Resolved: 6 12-15-2007 Chronic Other aftercare (1 source) Post-discharge follow-up; 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: [Encounter for follow-up examination after completed treatment for conditions other than malignant neoplasm] 01-22-2025 Episodic Other and ill-defined heart disease (5 sources) Cardiomegaly; 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: [Cardiomegaly] 08-31-2022 Chronic Other and ill-defined heart disease (2 sources) Cardiomegaly; 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: [Cardiomegaly] Chronic Other circulatory disease (3 sources) Carotid bruit; 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: [Other specified symptoms and signs involving the circulatory and respiratory systems] Episodic Other connective tissue disease (20 sources) History of bilateral total knee replacement; 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: [Presence of artificial knee joint, bilateral] Onset: 4 08-25-2016 Chronic Other connective tissue disease (5 sources) History of total knee arthroplasty; 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: [Presence of artificial knee joint, bilateral] 08-31-2022 Chronic Other connective tissue disease (5 sources) History of total hip arthroplasty; 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: [Presence of artificial hip joint, bilateral] 08-31-2022 Chronic Other connective tissue disease (2 sources) Presence of artificial knee joint, bilateral; 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: [Knee joint replacement] Chronic Other connective tissue disease (2 sources) Presence of artificial hip joint, bilateral; 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: [Hip joint replacement] Chronic Other connective tissue disease (7 sources) Pain of toe of right foot; 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: [Pain in right toe(s)] Episodic Other connective tissue disease (7 sources) Pain of toe of left foot; 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: [Pain in left toe(s)] Episodic Other connective tissue disease (5 sources) Swelling of left lower limb; 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: [Other specified soft tissue disorders] 08-31-2022 Episodic Other connective tissue disease (5 sources) Swelling of right lower limb; 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: [Other specified soft tissue disorders] 08-31-2022 Episodic Other connective tissue disease (4 sources) Other specified soft tissue disorders; 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: [Swelling of limb] Episodic Other connective tissue disease (5 sources) Swelling of lower limb; 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: [Other specified soft tissue disorders] Episodic Other connective tissue disease (3 sources) Cramp in lower limb; 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: [Cramp and spasm] Episodic Other connective tissue disease (2 sources) Pain in bilateral legs; 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: [Pain in right leg] Episodic Other diseases of kidney and ureters (1 source) Abnormal renal function; 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: [Disorder of kidney and ureter, unspecified] 03-29-2024 Episodic Other diseases of veins and lymphatics (20 sources) Lymphedema; 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: [Lymphedema, not elsewhere classified] Onset: 5 04-11-2018 Chronic Other diseases of veins and lymphatics (2 sources) Stasis dermatitis; 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: [Venous insufficiency (chronic) (peripheral)] Episodic Other diseases of veins and lymphatics (2 sources) Venous insufficiency (chronic) (peripheral); 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: [Venous (peripheral) insufficiency, unspecified] Episodic Other diseases of veins and lymphatics (1 source) Vascular insufficiency; 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: [Venous insufficiency (chronic) (peripheral)] 10-11-2024 Episodic Other diseases of veins and lymphatics (3 sources) Disorder of vein of lower extremity; 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: [Venous insufficiency (chronic) (peripheral)] 09-30-2017 Episodic Other gastrointestinal disorders (1 source) Finding of measures of abdomen; 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: [Other specified symptoms and signs involving the digestive system and abdomen] 01-08-2025 Episodic Other gastrointestinal disorders (1 source) Other specified symptoms and signs involving the digestive system and abdomen; 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: [Increased abdominal girth] Onset: 5 Episodic Other inflammatory condition of skin (1 source) Itching ; 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: [Pruritus, unspecified] 01-22-2025 Episodic Other lower respiratory disease (3 sources) Dyspnea; 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: [Dyspnea, unspecified] 01-08-2025 Episodic Other lower respiratory disease (1 source) Dyspnea, unspecified; 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: [Dyspnea, unspecified type] Onset: 5 Episodic Other nervous system disorders (1 source) Carpal tunnel syndrome, right upper limb; 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: [Carpal tunnel syndrome, right upper limb] Onset: 8 Chronic Other nervous system disorders (20 sources) Carpal tunnel syndrome of right wrist; 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: [Carpal tunnel syndrome, right upper limb] Onset: 8 Resolved: 0 04-13-2018 Chronic Other nervous system disorders (4 sources) Carpal tunnel syndrome of left wrist; 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: [Carpal tunnel syndrome, left upper limb] 09-30-2023 Chronic Other nutritional; endocrine; and metabolic disorders (20 sources) Body mass index 40+ - severely obese; 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: [Morbid (severe) obesity due to excess calories] Onset: 2 Resolved: 2 05-28-2020 Chronic Other nutritional; endocrine; and metabolic disorders (13 sources) Obese class II; 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: [Obesity, unspecified] Onset: 0 07-31-2020 Chronic Other nutritional; endocrine; and metabolic disorders (2 sources) Excess panniculus of abdomen; 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: [Localized adiposity] Chronic Other nutritional; endocrine; and metabolic disorders (3 sources) Severe obesity; 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: [Class 2 severe obesity with serious comorbidity and body mass index (BMI) of 36.0 to 36.9 in adult, unspecified obesity type (HCC)] 12-17-2024 Chronic Other nutritional; endocrine; and metabolic disorders (1 source) Weight increased; 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: [Abnormal weight gain] 01-08-2025 Episodic Other nutritional; endocrine; and metabolic disorders (3 sources) H/O: hypothyroidism; 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: [Personal history of other endocrine, nutritional and metabolic disease] 01-08-2025 Episodic Other nutritional; endocrine; and metabolic disorders (3 sources) H/O: diabetes mellitus; 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: [Personal history of other endocrine, nutritional and metabolic disease] 01-08-2025 Episodic Other nutritional; endocrine; and metabolic disorders (1 source) Personal history of other endocrine, nutritional and metabolic disease; 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: [Personal history of other endocrine, nutritional and metabolic disease] Onset: Episodic Other skin disorders (5 sources) Hyperpigmentation of skin; 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: [Disorder of pigmentation, unspecified] 08-31-2022 Episodic Other skin disorders (2 sources) Disorder of pigmentation, unspecified; 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: [Dyschromia, unspecified] Episodic Other skin disorders (2 sources) Foot callus; 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: [Corns and callosities] Episodic Other upper respiratory disease (2 sources) Vasomotor rhinitis; 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: [Vasomotor rhinitis] 01-08-2025 Chronic Other upper respiratory infections (3 sources) Acute sinusitis; 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: [Acute sinusitis, unspecified] 12-22-2024 Episodic Peripheral and visceral atherosclerosis (14 sources) Peripheral vascular disease, unspecified; 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: [Peripheral arterial disease] Onset: 3 Chronic Pleurisy; pneumothorax; pulmonary collapse (14 sources) Pleural effusion; 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: [Pleural effusion, not elsewhere classified] Onset: 5 01-23-2025 Episodic Residual codes; unclassified (5 sources) History of lumbar laminectomy; 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: [Other specified postprocedural states] 08-31-2022 Episodic Residual codes; unclassified (7 sources) Other specified postprocedural states; 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: [Other postprocedural status] Episodic Residual codes; unclassified (1 source) Postoperative state; 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: [Other specified postprocedural states] 02-29-2024 Episodic Residual codes; unclassified (1 source) Pain; 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: [Pain, unspecified] 12-07-2023 Episodic Thyroid disorders (20 sources) Hypothyroidism; 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: [Hypothyroidism, unspecified] Onset: 5 Chronic Urinary tract infections (1 source) Urinary tract infectious disease; 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: [Urinary tract infection, site not specified] Episodic Past or Other Problems Problem Classification Problem Date Documented Date Episodic/Chronic Abdominal pain (20 sources) Abdominal pain; 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: [Unspecified abdominal pain] Onset: 10-01-2011 Resolved: 08-25-2016 08-25-2016 Episodic Cancer of breast (20 sources) History of malignant neoplasm of breast; 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: [Personal history of malignant neoplasm of breast] Onset: 04-03-2009 11-16-2021 Episodic Diabetes mellitus without complication (20 sources) Type 2 diabetes mellitus without complication; 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: [Type 2 diabetes mellitus without complications] Onset: 02-27-2009 Resolved: 04-18-2015 Chronic Genitourinary symptoms and ill-defined conditions (20 sources) Microalbuminuria; 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: [Proteinuria, unspecified] Onset: 03-03-2016 03-03-2016 Episodic Mood disorders (13 sources) Mood disorders Onset: 08-30-2022 Resolved: 09-10-2024 08-30-2022 Other diseases of veins and lymphatics (20 sources) Peripheral venous insufficiency; 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: [Venous insufficiency (chronic) (peripheral)] Onset: 05-14-2009 Resolved: 08-25-2016 Episodic Other non-traumatic joint disorders (20 sources) Pain of right wrist; 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: [Pain in right wrist] Onset: 09-29-2021 Resolved: 03-18-2022 09-29-2021 Episodic Other screening for suspected conditions (not mental disorders or infectious disease) (20 sources) Patient encounter status; 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: [Encounter for screening mammogram for malignant neoplasm of breast] Onset: 02-13-2009 Resolved: 08-25-2016 Episodic Residual codes; unclassified (20 sources) Family history of bilateral hip replacements; 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: [Family history of other diseases of the musculoskeletal system and connective tissue] Onset: 11-21-2012 Resolved: 03-18-2022 08-25-2016 Episodic Residual codes; unclassified (20 sources) Edema of lower extremity; 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: [Localized edema] Onset: 03-28-2012 Resolved: 08-25-2016 08-25-2016 Episodic Unclassified (3 sources) Finding of measures of abdomen 01-08-2025 Varicose veins of lower extremity (20 sources) Lipodermatosclerosis; 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: [Varicose veins of unspecified lower extremity with inflammation] Onset: 10-23-2015 04-11-2018 Episodic Results Test Name Value Interpretation Reference Range Facility Basic Metabolic Profile (BMP )on 04-25-2025 BUN/CRE 39.6 RATIO High 10-20 [facility] Comment on above: Performed By: #### L 100.0100, L500.2500 ####[facility] [address] [place], [address] Calcium [Mass/Vol] 8.7 mg/dL Normal 7.6-11.0 [facility] Comment on above: Performed By: #### L 100.0100, L500.2500 ####[facility] [address] [place], [address] Chloride [Moles/Vol] 107 mmol/L Normal 98-108 [facility] Comment on above: Performed By: #### L 100.0100, L500.2500 ####[facility] [address] [place], [address] CO2 [Moles/Vol] 25.0 mmol/L Normal 21.0-32.0 [facility] Comment on above: Performed By: #### L 100.0100, L500.2500 ####[facility] [address] [place], [address] Creatinine [Mass/Vol] 1.13 mg/dL Normal 0.70-1.20 [facility] Comment on above: Performed By: #### L 100.0100, L500.2500 ####[facility] [address] [place], [address] ECRCL 38.04 ml/min Low 50-250 [facility] Comment on above: Performed By: #### L 100.0100, L500.2500 ####[facility] [address] [place], [address] GAP 9 Normal 5-15 [facility] Comment on above: Performed By: #### L 100.0100, L500.2500 ####[facility] [address] [place], [address] GFR/1.73 sq M.predicted among non-blacks MDRD (S/P/Bld) [Vol rate/Area] 48 mL/min/{1.73_m2} Low >60 [facility] Comment on above: Result Comment: mL/m in/1.73m2 CKD-EPI Creatinine Equation (2020) Performed By: #### L 100.0100, L500.2500 ####[facility] [address] [place], [address] Glucose [Mass/Vol] 150 mg/dL High 70-99 [facility] Comment on above: Performed By: #### L 100.0100, L500.2500 ####[facility] [address] [place], [address] Potassium [Moles/Vol] 3.9 mmol/L Normal 3.3-5.1 [facility] Comment on above: Performed By: #### L 100.0100, L500.2500 ####[facility] [address] [place], [address] Sodium [Moles/Vol] 141 mmol/L Normal 133-145 [facility] Comment on above: Performed By: #### L 100.0100, L500.2500 ####[facility] [address] [place], [address] Urea nitrogen [Mass/Vol] 45 mg/dL High 4-19 [facility] Comment on above: Performed By: #### L 100.0100, L500.2500 ####[facility] [address] [place], [address] Bedside Glucoseon 04-25-2025 FINGERSTICK GLU 139 mg/dL High 74-106 [facility] Comment on above: Result Comment: RUSSELL GEMENT OF PATIENT CARE PER NURSING PROTOCOL Performed By: #### L 501.080 ####[facility] [address] [place], [address] FINGERSTICK GLU 147 mg/dL High 74-106 [facility] Comment on above: Result Comment: RUSSELL GEMENT OF PATIENT CARE PER NURSING PROTOCOL Performed By: #### L 501.080 ####[facility] [address] [place], [address] FINGERSTICK GLU 165 mg/dL High 74-106 [facility] Comment on above: Result Comment: RUSSELL GEMENT OF PATIENT CARE PER NURSING PROTOCOL Performed By: #### L 501.080 ####[facility] [address] [place], [address] FINGERSTICK GLU 139 mg/dL High 74-106 [facility] Comment on above: Result Comment: RUSSELL GEMENT OF PATIENT CARE PER NURSING PROTOCOL Performed By: #### L 501.080 ####[facility] [address] [place], [address] FINGERSTICK GLU 129 mg/dL High 74-106 [facility] Comment on above: Result Comment: RUSSELL GEMENT OF PATIENT CARE PER NURSING PROTOCOL Performed By: #### L 501.080 ####[facility] [address] [place], [address] FINGERSTICK GLU 142 mg/dL High 74-106 [facility] Comment on above: Result Comment: RUSSELL GEMENT OF PATIENT CARE PER NURSING PROTOCOL Performed By: #### L 501.080 ####[facility] [address] [place], [address] CBC W/Diff, Automatedon 06-0 -2024 Absolute Lymph 0.75 X10 3/uL Low 0.83-4.51 [facility] Comment on above: Performed By: #### L 100.0100, L500.2500 ####[facility] [address] [place], [address] Absolute Neut 9.2 X10 3/uL High 2.0-7.7 [facility] Comment on above: Performed By: #### L 100.0100, L500.2500 ####[facility] [address] [place], [address] Basophils/100 WBC (Bld) 0.4 % Normal 0-1 [facility] Comment on above: Performed By: #### L 100.0100, L500.2500 ####[facility] [address] [place], [address] Eosinophils/100 WBC (Bld) 2.7 % Normal 0-5 [facility] Comment on above: Performed By: #### L 100.0100, L500.2500 ####[facility] [address] [place], [address] Erythrocyte distribution width (RBC) [Ratio] 16.2 % High 11.6-14.6 [facility] Comment on above: Performed By: #### L 100.0100, L500.2500 ####[facility] [address] [place], [address] Hematocrit (Bld) [Volume fraction] 31.4 % Low 37-47 [facility] Comment on above: Performed By: #### L 100.0100, L500.2500 ####[facility] [address] [place], [address] Hemoglobin (Bld) [Mass/Vol] 9.9 g/dL Low 12.0-15.0 [facility] Comment on above: Performed By: #### L 100.0100, L500.2500 ####[facility] [address] [place], [address] IG% 0.600 Normal 0.0-0.9 [facility] Comment on above: Result Comment: IG% - Immature Granulocytes (promyelocytes, myelocytes andmetamyelocytes) > 1% indicates that a LEFT SHIFT is Present. Performed By: #### L 100.0100, L500.2500 ####[facility] [address] [place], [address] Lymphocytes/100 WBC (Bld) 6.8 % Low 19-41 [facility] Comment on above: Performed By: #### L 100.0100, L500.2500 ####[facility] [address] [place], [address] MCH (RBC) [Entitic mass] 28.0 pg Normal 27.0-32.0 [facility] Comment on above: Performed By: #### L 100.0100, L500.2500 ####[facility] [address] [place], [address] MCHC (RBC) [Mass/Vol] 31.5 g/dL Low 32-36 [facility] Comment on above: Performed By: #### L 100.0100, L500.2500 ####[facility] [address] [place], [address] MCV (RBC) [Entitic vol] 88.7 fL Normal 81-99 [facility] Comment on above: Performed By: #### L 100.0100, L500.2500 ####[facility] [address] [place], [address] Monocytes/100 WBC (Bld) 5.9 % Normal 0-10 [facility] Comment on above: Performed By: #### L 100.0100, L500.2500 ####[facility] [address] [place], [address] Neutrophils/100 WBC (Bld) 83.6 % High 47-70 [facility] Comment on above: Performed By: #### L 100.0100, L500.2500 ####[facility] [address] [place], [address] Nucleated RBC (Bld) [#/Vol] 0 10*3/uL Normal 0-5 [facility] Comment on above: Performed By: #### L 100.0100, L500.2500 ####[facility] [address] [place], [address] Platelet mean volume (Bld) [Entitic vol] 10.1 fL Normal 6.2-12.0 [facility] Comment on above: Performed By: #### L 100.0100, L500.2500 ####[facility] [address] [place], [address] Platelets (Bld) [#/Vol] 295 10*3/uL Normal 150-450 [facility] Comment on above: Performed By: #### L 100.0100, L500.2500 ####[facility] [address] [place], [address] RBC (Bld) [#/Vol] 3.54 10*6/uL Low 4.2-5.4 [facility] Comment on above: Performed By: #### L 100.0100, L500.2500 ####[facility] [address] [place], [address] RDW SD 52.8 fl High 35.1-43.9 [facility] Comment on above: Performed By: #### L 100.0100, L500.2500 ####[facility] [address] [place], [address] WBC (Bld) [#/Vol] 11.1 10*3/uL High 4.4-11.0 [facility] Comment on above: Performed By: #### L 100.0100, L500.2500 ####[facility] [address] [place], [address] Chest PA and Lateralon 04-25 Chest PA and Lateral Normal [facility] Basic Metabolic Profile (BMP )on 04-24-2025 BUN/CRE 41.7 RATIO High 10-20 [facility] Comment on above: Performed By: #### L 501.2300, L100.0100, L501.5200, L500.2500 ####[facility] [address] [place], [address] Calcium [Mass/Vol] 8.6 mg/dL Normal 7.6-11.0 [facility] Comment on above: Performed By: #### L 501.2300, L100.0100, L501.5200, L500.2500 ####[facility] [address] [place], [address] Chloride [Moles/Vol] 107 mmol/L Normal 98-108 [facility] Comment on above: Performed By: #### L 501.2300, L100.0100, L501.5200, L500.2500 ####[facility] [address] [place], [address] CO2 [Moles/Vol] 24.6 mmol/L Normal 21.0-32.0 [facility] Comment on above: Performed By: #### L 501.2300, L100.0100, L501.5200, L500.2500 ####[facility] [address] [place], [address] Creatinine [Mass/Vol] 1.14 mg/dL Normal 0.70-1.20 [facility] Comment on above: Performed By: #### L 501.2300, L100.0100, L501.5200, L500.2500 ####[facility] [address] [place], [address] ECRCL 37.82 ml/min Low 50-250 [facility] Comment on above: Performed By: #### L 501.2300, L100.0100, L501.5200, L500.2500 ####[facility] [address] [place], [address] GAP 9 Normal 5-15 [facility] Comment on above: Performed By: #### L 501.2300, L100.0100, L501.5200, L500.2500 ####[facility] [address] [place], [address] GFR/1.73 sq M.predicted among non-blacks MDRD (S/P/Bld) [Vol rate/Area] 47 mL/min/{1.73_m2} Low >60 [facility] Comment on above: Result Comment: mL/m in/1.73m2 CKD-EPI Creatinine Equation (2020) Performed By: #### L 501.2300, L100.0100, L501.5200, L500.2500 ####[facility] [address] [place], [address] Glucose [Mass/Vol] 169 mg/dL High 70-99 [facility] Comment on above: Performed By: #### L 501.2300, L100.0100, L501.5200, L500.2500 ####[facility] [address] [place], [address] Potassium [Moles/Vol] 3.9 mmol/L Normal 3.3-5.1 [facility] Comment on above: Performed By: #### L 501.2300, L100.0100, L501.5200, L500.2500 ####[facility] [address] [place], [address] Sodium [Moles/Vol] 140 mmol/L Normal 133-145 [facility] Comment on above: Performed By: #### L 501.2300, L100.0100, L501.5200, L500.2500 ####[facility] [address] [place], [address] Urea nitrogen [Mass/Vol] 48 mg/dL High 4-19 [facility] Comment on above: Performed By: #### L 501.2300, L100.0100, L501.5200, L500.2500 ####[facility] [address] [place], [address] Bedside Glucoseon 04-24-2025 FINGERSTICK GLU 134 mg/dL High 74-106 [facility] Comment on above: Result Comment: RUSSELL GEMENT OF PATIENT CARE PER NURSING PROTOCOL Performed By: #### L 501.080 ####[facility] [address] [place], [address] FINGERSTICK GLU 128 mg/dL High 74-106 [facility] Comment on above: Result Comment: RUSSELL GEMENT OF PATIENT CARE PER NURSING PROTOCOL Performed By: #### L 501.080 ####[facility] [address] [place], [address] Body Fluid Culton 04-24-2025 BFC No growth-Final to follow Normal [facility] Comment on above: Performed By: #### M 100.2900, L504.0250, M100.2000, L503.0300, M100.4001, L200.0200, L503.0100 ####[facility] [address] [place], [address] CBC W/Diff, Automatedon 06-0 Absolute Lymph 0.86 X10 3/uL Normal 0.83-4.51 [facility] Comment on above: Performed By: #### L 501.2300, L100.0100, L501.5200, L500.2500 ####[facility] [address] [place], [address] Absolute Neut 9.6 X10 3/uL High 2.0-7.7 [facility] Comment on above: Performed By: #### L 501.2300, L100.0100, L501.5200, L500.2500 ####[facility] [address] [place], [address] Basophils/100 WBC (Bld) 0.4 % Normal 0-1 [facility] Comment on above: Performed By: #### L 501.2300, L100.0100, L501.5200, L500.2500 ####[facility] [address] [place], [address] Eosinophils/100 WBC (Bld) 2.7 % Normal 0-5 [facility] Comment on above: Performed By: #### L 501.2300, L100.0100, L501.5200, L500.2500 ####[facility] [address] [place], [address] Erythrocyte distribution width (RBC) [Ratio] 16.2 % High 11.6-14.6 [facility] Comment on above: Performed By: #### L 501.2300, L100.0100, L501.5200, L500.2500 ####[facility] [address] [place], [address] Hematocrit (Bld) [Volume fraction] 33.1 % Low 37-47 [facility] Comment on above: Performed By: #### L 501.2300, L100.0100, L501.5200, L500.2500 ####[facility] [address] [place], [address] Hemoglobin (Bld) [Mass/Vol] 10.3 g/dL Low 12.0-15.0 [facility] Comment on above: Performed By: #### L 501.2300, L100.0100, L501.5200, L500.2500 ####[facility] [address] [place], [address] IG% 0.900 Normal 0.0-0.9 [facility] Comment on above: Result Comment: IG% - Immature Granulocytes (promyelocytes, myelocytes andmetamyelocytes) > 1% indicates that a LEFT SHIFT is Present. Performed By: #### L 501.2300, L100.0100, L501.5200, L500.2500 ####[facility] [address] [place], [address] Lymphocytes/100 WBC (Bld) 7.3 % Low 19-41 [facility] Comment on above: Performed By: #### L 501.2300, L100.0100, L501.5200, L500.2500 ####[facility] [address] [place], [address] MCH (RBC) [Entitic mass] 27.6 pg Normal 27.0-32.0 [facility] Comment on above: Performed By: #### L 501.2300, L100.0100, L501.5200, L500.2500 ####[facility] [address] [place], [address] MCHC (RBC) [Mass/Vol] 31.1 g/dL Low 32-36 [facility] Comment on above: Performed By: #### L 501.2300, L100.0100, L501.5200, L500.2500 ####[facility] [address] [place], [address] MCV (RBC) [Entitic vol] 88.7 fL Normal 81-99 [facility] Comment on above: Performed By: #### L 501.2300, L100.0100, L501.5200, L500.2500 ####[facility] [address] [place], [address] Monocytes/100 WBC (Bld) 7.1 % Normal 0-10 [facility] Comment on above: Performed By: #### L 501.2300, L100.0100, L501.5200, L500.2500 ####[facility] [address] [place], [address] Neutrophils/100 WBC (Bld) 81.6 % High 47-70 [facility] Comment on above: Performed By: #### L 501.2300, L100.0100, L501.5200, L500.2500 ####[facility] [address] [place], [address] Nucleated RBC (Bld) [#/Vol] 0.2 10*3/uL Normal 0-5 [facility] Comment on above: Performed By: #### L 501.2300, L100.0100, L501.5200, L500.2500 ####[facility] [address] [place], [address] Platelet mean volume (Bld) [Entitic vol] 9.9 fL Normal 6.2-12.0 [facility] Comment on above: Performed By: #### L 501.2300, L100.0100, L501.5200, L500.2500 ####[facility] [address] [place], [address] Platelets (Bld) [#/Vol] 299 10*3/uL Normal 150-450 [facility] Comment on above: Performed By: #### L 501.2300, L100.0100, L501.5200, L500.2500 ####[facility] [address] [place], [address] RBC (Bld) [#/Vol] 3.73 10*6/uL Low 4.2-5.4 [facility] Comment on above: Performed By: #### L 501.2300, L100.0100, L501.5200, L500.2500 ####[facility] [address] [place], [address] RDW SD 52.6 fl High 35.1-43.9 [facility] Comment on above: Performed By: #### L 501.2300, L100.0100, L501.5200, L500.2500 ####[facility] [address] [place], [address] WBC (Bld) [#/Vol] 11.7 10*3/uL High 4.4-11.0 [facility] Comment on above: Performed By: #### L 501.2300, L100.0100, L501.5200, L500.2500 ####[facility] [address] [place], [address] CBC-Complete Blood Cnt No Di ffon 04-24-2025 Erythrocyte distribution width (RBC) [Ratio] 13.7 % Normal 11.6-14.6 [facility] Comment on above: Result Comment: ICU CALLED AND REQUESTED CANCELLED DUE TO WRONG PATIENTBLOOD. Performed By: #### L 501.2300, L100.0500, L500.4050, L501.5200 ####[facility] [address] [place], [address] Hematocrit (Bld) [Volume fraction] 24.1 % Low 37-47 [facility] Comment on above: Result Comment: ICU CALLED AND REQUESTED CANCELLED DUE TO WRONG PATIENTBLOOD. Performed By: #### L 501.2300, L100.0500, L500.4050, L501.5200 ####[facility] [address] [place], [address] Hemoglobin (Bld) [Mass/Vol] 7.8 g/dL Low 12.0-15.0 [facility] Comment on above: Result Comment: ICU CALLED AND REQUESTED CANCELLED DUE TO WRONG PATIENTBLOOD. Performed By: #### L 501.2300, L100.0500, L500.4050, L501.5200 ####[facility] [address] [place], [address] MCH (RBC) [Entitic mass] 30.0 pg Normal 27.0-32.0 [facility] Comment on above: Result Comment: ICU CALLED AND REQUESTED CANCELLED DUE TO WRONG PATIENTBLOOD. Performed By: #### L 501.2300, L100.0500, L500.4050, L501.5200 ####[facility] [address] [place], [address] MCHC (RBC) [Mass/Vol] 32.4 g/dL Normal 32-36 [facility] Comment on above: Result Comment: ICU CALLED AND REQUESTED CANCELLED DUE TO WRONG PATIENTBLOOD. Performed By: #### L 501.2300, L100.0500, L500.4050, L501.5200 ####[facility] [address] [place], [address] MCV (RBC) [Entitic vol] 92.7 fL Normal 81-99 [facility] Comment on above: Result Comment: ICU CALLED AND REQUESTED CANCELLED DUE TO WRONG PATIENTBLOOD. Performed By: #### L 501.2300, L100.0500, L500.4050, L501.5200 ####[facility] [address] [place], [address] Platelet mean volume (Bld) [Entitic vol] 11.5 fL Normal 6.2-12.0 [facility] Comment on above: Result Comment: ICU CALLED AND REQUESTED CANCELLED DUE TO WRONG PATIENTBLOOD. Performed By: #### L 501.2300, L100.0500, L500.4050, L501.5200 ####[facility] [address] [place], [address] Platelets (Bld) [#/Vol] 250 10*3/uL Normal 150-450 [facility] Comment on above: Result Comment: ICU CALLED AND REQUESTED CANCELLED DUE TO WRONG PATIENTBLOOD. Performed By: #### L 501.2300, L100.0500, L500.4050, L501.5200 ####[facility] [address] [place], [address] RBC (Bld) [#/Vol] 2.60 10*6/uL Low 4.2-5.4 [facility] Comment on above: Result Comment: ICU CALLED AND REQUESTED CANCELLED DUE TO WRONG PATIENTBLOOD. Performed By: #### L 501.2300, L100.0500, L500.4050, L501.5200 ####[facility] [address] [place], [address] RDW SD 46.6 fl High 35.1-43.9 [facility] Comment on above: Result Comment: ICU CALLED AND REQUESTED CANCELLED DUE TO WRONG PATIENTBLOOD. Performed By: #### L 501.2300, L100.0500, L500.4050, L501.5200 ####[facility] [address] [place], [address] WBC (Bld) [#/Vol] 26.8 10*3/uL High 4.4-11.0 [facility] Comment on above: Result Comment: ICU CALLED AND REQUESTED CANCELLED DUE TO WRONG PATIENTBLOOD. Performed By: #### L 501.2300, L100.0500, L500.4050, L501.5200 ####[facility] [address] [place], [address] Comprehensive Metabolic Prof ilon 04-24-2025 ALB Normal 3.4-4.8 [facility] Comment on above: Result Comment: ICU REQUESTED CANCELLED DUE TO WRONG PATIENT BLOOD. Performed By: #### L 501.2300, L100.0500, L500.4050, L501.5200 ####[facility] [address] [place], [address] ALK PHOS Normal 35-104 [facility] Comment on above: Result Comment: ICU REQUESTED CANCELLED DUE TO WRONG PATIENT BLOOD. Performed By: #### L 501.2300, L100.0500, L500.4050, L501.5200 ####[facility] [address] [place], [address] ALT Normal <=34 [facility] Comment on above: Result Comment: ICU REQUESTED CANCELLED DUE TO WRONG PATIENT BLOOD. Performed By: #### L 501.2300, L100.0500, L500.4050, L501.5200 ####[facility] [address] [place], [address] AST Normal <=31 [facility] Comment on above: Result Comment: ICU REQUESTED CANCELLED DUE TO WRONG PATIENT BLOOD. Performed By: #### L 501.2300, L100.0500, L500.4050, L501.5200 ####[facility] [address] [place], [address] BUN Normal 4-19 [facility] Comment on above: Result Comment: ICU REQUESTED CANCELLED DUE TO WRONG PATIENT BLOOD. Performed By: #### L 501.2300, L100.0500, L500.4050, L501.5200 ####[facility] [address] [place], [address] BUN/CRE Normal 10-20 [facility] Comment on above: Result Comment: ICU REQUESTED CANCELLED DUE TO WRONG PATIENT BLOOD. Performed By: #### L 501.2300, L100.0500, L500.4050, L501.5200 ####[facility] [address] [place], [address] Calcium Normal 7.6-11.0 [facility] Comment on above: Result Comment: ICU REQUESTED CANCELLED DUE TO WRONG PATIENT BLOOD. Performed By: #### L 501.2300, L100.0500, L500.4050, L501.5200 ####[facility] [address] [place], [address] CL Normal 98-108 [facility] Comment on above: Result Comment: ICU REQUESTED CANCELLED DUE TO WRONG PATIENT BLOOD. Performed By: #### L 501.2300, L100.0500, L500.4050, L501.5200 ####[facility] [address] [place], [address] CO2 Normal 21.0-32.0 [facility] Comment on above: Result Comment: ICU REQUESTED CANCELLED DUE TO WRONG PATIENT BLOOD. Performed By: #### L 501.2300, L100.0500, L500.4050, L501.5200 ####[facility] [address] [place], [address] CREAT,SERUM Normal 0.70-1.20 [facility] Comment on above: Result Comment: ICU REQUESTED CANCELLED DUE TO WRONG PATIENT BLOOD. Performed By: #### L 501.2300, L100.0500, L500.4050, L501.5200 ####[facility] [address] [place], [address] eGFR Normal >60 [facility] Comment on above: Result Comment: ICU REQUESTED CANCELLED DUE TO WRONG PATIENT BLOOD. Performed By: #### L 501.2300, L100.0500, L500.4050, L501.5200 ####[facility] [address] [place], [address] GAP Normal 5-15 [facility] Comment on above: Result Comment: ICU REQUESTED CANCELLED DUE TO WRONG PATIENT BLOOD. Performed By: #### L 501.2300, L100.0500, L500.4050, L501.5200 ####[facility] [address] [place], [address] GLU Normal 70-99 [facility] Comment on above: Result Comment: ICU REQUESTED CANCELLED DUE TO WRONG PATIENT BLOOD. Performed By: #### L 501.2300, L100.0500, L500.4050, L501.5200 ####[facility] [address] [place], [address] Potassium Normal 3.3-5.1 [facility] Comment on above: Result Comment: ICU REQUESTED CANCELLED DUE TO WRONG PATIENT BLOOD. Performed By: #### L 501.2300, L100.0500, L500.4050, L501.5200 ####[facility] [address] [place], [address] T BILI Normal 0.00-1.30 [facility] Comment on above: Result Comment: ICU REQUESTED CANCELLED DUE TO WRONG PATIENT BLOOD. Performed By: #### L 501.2300, L100.0500, L500.4050, L501.5200 ####[facility] [address] [place], [address] T PROT Normal 5.9-8.4 [facility] Comment on above: Result Comment: ICU REQUESTED CANCELLED DUE TO WRONG PATIENT BLOOD. Performed By: #### L 501.2300, L100.0500, L500.4050, L501.5200 ####[facility] [address] [place], [address] Comprehensive Metabolic Profil Normal 133-145 [facility] Comment on above: Result Comment: ICU REQUESTED CANCELLED DUE TO WRONG PATIENT BLOOD. Performed By: #### L 501.2300, L100.0500, L500.4050, L501.5200 ####[facility] [address] [place], [address] Culture, Anaerobic Any Sourc deangelo 04-24-2025 CUAN No growth in 48 hours. Normal [facility] Comment on above: Performed By: #### M 100.2900, L504.0250, M100.2000, L503.0300, M100.4001, L200.0200, L503.0100 ####[facility] [address] [place], [address] Magnesiumon 04-24-2025 Magnesium [Mass/Vol] 2.1 mg/dL Normal 1.5-2.2 [facility] Comment on above: Performed By: #### L 501.2300, L100.0100, L501.5200, L500.2500 ####[facility] [address] [place], [address] Magnesium [Mass/Vol] 2.2 mg/dL Normal 1.5-2.2 [facility] Comment on above: Order Comment: ICU R EQUESTED CANCELLED DUE TO WRONG PATIENT BLOOD. Result Comment: ICU REQUESTED CANCELLED DUE TO WRONG PATIENT BLOOD. Performed By: #### L 501.2300, L100.0500, L500.4050, L501.5200 ####[facility] [address] [place], [address] Phosphoruson 04-24-2025 Phosphate [Mass/Vol] 2.2 mg/dL Low 2.7-4.5 [facility] Comment on above: Performed By: #### L 501.2300, L100.0100, L501.5200, L500.2500 ####[facility] [address] [place], [address] Phosphate [Mass/Vol] 2.4 mg/dL Low 2.7-4.5 [facility] Comment on above: Order Comment: ICU R EQUESTED CANCELLED DUE TO WRONG PATIENT BLOOD. Result Comment: ICU REQUESTED CANCELLED DUE TO WRONG PATIENT BLOOD. Performed By: #### L 501.2300, L100.0500, L500.4050, L501.5200 ####[facility] [address] [place], [address] Basic Metabolic Profile (BMP )on 04-23-2025 BUN/CRE 48.2 RATIO High 10-20 [facility] Comment on above: Performed By: #### L 500.2500 ####[facility] [address] [place], [address] Calcium [Mass/Vol] 8.7 mg/dL Normal 7.6-11.0 [facility] Comment on above: Performed By: #### L 500.2500 ####[facility] [address] [place], [address] Chloride [Moles/Vol] 108 mmol/L Normal 98-108 [facility] Comment on above: Performed By: #### L 500.2500 ####[facility] [address] [place], [address] CO2 [Moles/Vol] 23.2 mmol/L Normal 21.0-32.0 [facility] Comment on above: Performed By: #### L 500.2500 ####[facility] [address] [place], [address] Creatinine [Mass/Vol] 1.25 mg/dL High 0.70-1.20 [facility] Comment on above: Performed By: #### L 500.2500 ####[facility] [address] [place], [address] ECRCL 34.70 ml/min Low 50-250 [facility] Comment on above: Performed By: #### L 500.2500 ####[facility] [address] [place], [address] GAP 10 Normal 5-15 [facility] Comment on above: Performed By: #### L 500.2500 ####[facility] [address] [place], [address] GFR/1.73 sq M.predicted among non-blacks MDRD (S/P/Bld) [Vol rate/Area] 42 mL/min/{1.73_m2} Low >60 [facility] Comment on above: Result Comment: mL/m in/1.73m2 CKD-EPI Creatinine Equation (2020) Performed By: #### L 500.2500 ####[facility] [address] [place], [address] Glucose [Mass/Vol] 162 mg/dL High 70-99 [facility] Comment on above: Performed By: #### L 500.2500 ####[facility] [address] [place], [address] Potassium [Moles/Vol] 3.9 mmol/L Normal 3.3-5.1 [facility] Comment on above: Result Comment: Hemo lysis present, Results??could be affected.?? Performed By: #### L 500.2500 ####[facility] [address] [place], [address] Sodium [Moles/Vol] 142 mmol/L Normal 133-145 [facility] Comment on above: Performed By: #### L 500.2500 ####[facility] [address] [place], [address] Urea nitrogen [Mass/Vol] 60 mg/dL High 4-19 [facility] Comment on above: Performed By: #### L 500.2500 ####[facility] [address] [place], [address] Bedside Glucoseon 04-23-2025 FINGERSTICK GLU 125 mg/dL High 74-106 [facility] Comment on above: Result Comment: RUSSELL GEMENT OF PATIENT CARE PER NURSING PROTOCOL Performed By: #### L 501.080 ####[facility] [address] [place], [address] FINGERSTICK GLU 128 mg/dL High 74-106 [facility] Comment on above: Result Comment: RUSSELL GEMENT OF PATIENT CARE PER NURSING PROTOCOL Performed By: #### L 501.080 ####[facility] [address] [place], [address] FINGERSTICK GLU 165 mg/dL High 74-106 [facility] Comment on above: Result Comment: RUSSELL GEMENT OF PATIENT CARE PER NURSING PROTOCOL Performed By: #### L 501.080 ####[facility] [address] [place], [address] FINGERSTICK GLU 146 mg/dL High 74-106 [facility] Comment on above: Result Comment: RUSSELL QUINTANILLA OF PATIENT CARE PER NURSING PROTOCOL Performed By: #### L 501.080 ####[facility] [address] [place], [place], [address] Culture, Blood (WB)on 2024 CUB blood cultures x2, f rom 2 different sites No growth in 5 days. Normal [facility] Comment on above: Performed By: #### M 200.1000 ####[facility] [address] [place], [place], [address] GIRMA w/ Reflex Mult Confirmon 04-22-2025 GIRMA,DIRECT Negative Normal Negative [facility] Comment on above: Result Comment: Perf ormed at: [facility] [address] [id number] Director: Truman Maier PhD, Phone: [phone] Performed By: #### L 3100.5450 ####[facility] [address] [place], [place], [address] ANCAon 04-22-2025 Atypical pANCA 1:20 Abnormal Neg:<1:20 [facility] Comment on above: Result Comment: The atypical pANCA pattern has been observed in asignificant percentage of patients with ulcerative colitis,primary sclerosing cholangitis and autoimmune hepatitis. Performed By: #### L 3100.5700, L3300.1200 ####[facility] [address] [place], [place], [address] Cytoplasmic Ab <1:20 Normal Neg:<1:20 [facility] Comment on above: Performed By: #### L 3100.5700, L3300.1200 ####[facility] [address] [place], [place], [address] Perinuclear Ab. <1:20 Normal Neg:<1:20 [facility] Comment on above: Result Comment: The presence of positive fluorescence exhibiting P-ANCA orC-ANCA patterns alone is not specific for the diagnosis ofWegener's Granulomatosis (WG) or microscopic polyangiitis.Decisions about treatment should not be based solely onANCA IFA results. The [employer] ANCA [employer] Consensusrecommends follow up testing of positive sera with both SD-3 and MPO-ANCA enzyme immunoassays. As many as 5% serumsamples are positive only by EIA. Ref. AM J Clin [id number];111:[id number]. Performed By: #### L 3100.5700, L3300.1200 ####[facility] [address] [place], [address] Basic Metabolic Profile (BMP )on 04-22-2025 BUN/CRE 50.8 RATIO High 10-20 [facility] Comment on above: Performed By: #### L 500.2500 ####[facility] [address] [place], [address] Calcium [Mass/Vol] 8.3 mg/dL Normal 7.6-11.0 [facility] Comment on above: Performed By: #### L 500.2500 ####[facility] [address] [place], [address] Chloride [Moles/Vol] 110 mmol/L High 98-108 [facility] Comment on above: Performed By: #### L 500.2500 ####[facility] [address] [place], [address] CO2 [Moles/Vol] 21.8 mmol/L Normal 21.0-32.0 [facility] Comment on above: Performed By: #### L 500.2500 ####[facility] [address] [place], [address] Creatinine [Mass/Vol] 1.38 mg/dL High 0.70-1.20 [facility] Comment on above: Performed By: #### L 500.2500 ####[facility] [address] [place], [address] ECRCL 31.43 ml/min Low 50-250 [facility] Comment on above: Performed By: #### L 500.2500 ####[facility] [address] [place], [address] GAP 11 Normal 5-15 [facility] Comment on above: Performed By: #### L 500.2500 ####[facility] [address] [place], [address] GFR/1.73 sq M.predicted among non-blacks MDRD (S/P/Bld) [Vol rate/Area] 38 mL/min/{1.73_m2} Low >60 [facility] Comment on above: Result Comment: mL/m in/1.73m2 CKD-EPI Creatinine Equation (2020) Performed By: #### L 500.2500 ####[facility] [address] [place], [address] Glucose [Mass/Vol] 152 mg/dL High 70-99 [facility] Comment on above: Performed By: #### L 500.2500 ####[facility] [address] [place], [address] Potassium [Moles/Vol] 4.2 mmol/L Normal 3.3-5.1 [facility] Comment on above: Result Comment: Hemo lysis present, Results??could be affected.?? Performed By: #### L 500.2500 ####[facility] [address] [place], [address] Sodium [Moles/Vol] 142 mmol/L Normal 133-145 [facility] Comment on above: Performed By: #### L 500.2500 ####[facility] [address] [place], [address] Urea nitrogen [Mass/Vol] 70 mg/dL High 4-19 [facility] Comment on above: Performed By: #### L 500.2500 ####[facility] [address] [place], [address] BUN/CRE 56.6 RATIO High 10-20 [facility] Comment on above: Performed By: #### L 100.0100, L500.2500 ####[facility] [address] [place], [address] Calcium [Mass/Vol] 6.3 mg/dL Invalid Interpretation Code 7.6-11.0 [facility] Comment on above: Result Comment: Crit ical Result(s) Called at: 0621 by:??EMERSON ANDRADE. Results read back by same. Performed By: #### L 100.0100, L500.2500 ####[facility] [address] [place], [address] Chloride [Moles/Vol] 118 mmol/L High 98-108 [facility] Comment on above: Performed By: #### L 100.0100, L500.2500 ####[facility] [address] [place], [address] CO2 [Moles/Vol] 19.1 mmol/L Low 21.0-32.0 [facility] Comment on above: Performed By: #### L 100.0100, L500.2500 ####[facility] [address] [place], [address] Creatinine [Mass/Vol] 1.03 mg/dL Normal 0.70-1.20 [facility] Comment on above: Performed By: #### L 100.0100, L500.2500 ####[facility] [address] [place], [address] ECRCL 42.11 ml/min Low 50-250 [facility] Comment on above: Performed By: #### L 100.0100, L500.2500 ####[facility] [address] [place], [address] GAP 7 Normal 5-15 [facility] Comment on above: Performed By: #### L 100.0100, L500.2500 ####[facility] [address] [place], [address] GFR/1.73 sq M.predicted among non-blacks MDRD (S/P/Bld) [Vol rate/Area] 53 mL/min/{1.73_m2} Low >60 [facility] Comment on above: Result Comment: mL/m in/1.73m2 CKD-EPI Creatinine Equation (2020) Performed By: #### L 100.0100, L500.2500 ####[facility] [address] [place], [address] Glucose [Mass/Vol] 126 mg/dL High 70-99 [facility] Comment on above: Performed By: #### L 100.0100, L500.2500 ####[facility] [address] [place], [address] Potassium [Moles/Vol] 2.9 mmol/L Low 3.3-5.1 [facility] Comment on above: Performed By: #### L 100.0100, L500.2500 ####[facility] [address] [place], [address] Sodium [Moles/Vol] 144 mmol/L Normal 133-145 [facility] Comment on above: Performed By: #### L 100.0100, L500.2500 ####[facility] [address] [place], [address] Urea nitrogen [Mass/Vol] 58 mg/dL High 4-19 [facility] Comment on above: Performed By: #### L 100.0100, L500.2500 ####[facility] [address] [place], [address] Bedside Glucoseon 04-22-2025 FINGERSTICK GLU 147 mg/dL High 74-106 [facility] Comment on above: Result Comment: RUSSELL GEMENT OF PATIENT CARE PER NURSING PROTOCOL Performed By: #### L 501.080 ####[facility] [address] [place], [address] FINGERSTICK GLU 130 mg/dL High 74-106 [facility] Comment on above: Result Comment: RUSSELL GEMENT OF PATIENT CARE PER NURSING PROTOCOL Performed By: #### L 501.080 ####[facility] [address] [place], [address] FINGERSTICK GLU 141 mg/dL High 74-106 [facility] Comment on above: Result Comment: RUSSELL GEMENT OF PATIENT CARE PER NURSING PROTOCOL Performed By: #### L 501.080 ####[facility] [address] [place], [address] Body Fluid Cell Count+Diffon 04-22-2025 Lymphocytes (Bld) [#/Vol] 58 10*3/uL Normal [facility] Comment on above: Order Comment: The r eference interval(s) and other method performancespecifications are unavailable for this body fluid.Comparison of the result with concentration in the blood,serum, or plasma is recommended. Performed By: #### M 100.2900, L504.0250, M100.2000, L503.0300, M100.4001, L200.0200, L503.0100 ####[facility] [address] [place], [address] MACROPHAGES 63 Normal [facility] Comment on above: Order Comment: The r eference interval(s) and other method performancespecifications are unavailable for this body fluid.Comparison of the result with concentration in the blood,serum, or plasma is recommended. Performed By: #### M 100.2900, L504.0250, M100.2000, L503.0300, M100.4001, L200.0200, L503.0100 ####[facility] [address] [place], [address] MESOTHELIAL 4 Normal [facility] Comment on above: Order Comment: The r eference interval(s) and other method performancespecifications are unavailable for this body fluid.Comparison of the result with concentration in the blood,serum, or plasma is recommended. Performed By: #### M 100.2900, L504.0250, M100.2000, L503.0300, M100.4001, L200.0200, L503.0100 ####[facility] [address] [place], [address] MONO/BF 3 Normal [facility] Comment on above: Order Comment: The r eference interval(s) and other method performancespecifications are unavailable for this body fluid.Comparison of the result with concentration in the blood,serum, or plasma is recommended. Performed By: #### M 100.2900, L504.0250, M100.2000, L503.0300, M100.4001, L200.0200, L503.0100 ####[facility] [address] [place], [address] PMN 35 Normal [facility] Comment on above: Order Comment: The r eference interval(s) and other method performancespecifications are unavailable for this body fluid.Comparison of the result with concentration in the blood,serum, or plasma is recommended. Performed By: #### M 100.2900, L504.0250, M100.2000, L503.0300, M100.4001, L200.0200, L503.0100 ####[facility] [address] [place], [place], [address] RBC/BF 0.011 10 6/ul Normal [facility] Comment on above: Order Comment: The r eference interval(s) and other method performancespecifications are unavailable for this body fluid.Comparison of the result with concentration in the blood,serum, or plasma is recommended. Performed By: #### M 100.2900, L504.0250, M100.2000, L503.0300, M100.4001, L200.0200, L503.0100 ####[facility] [address] [place], [address] APPEAR/BF CLOUDY Normal [facility] Comment on above: Order Comment: The r eference interval(s) and other method performancespecifications are unavailable for this body fluid.Comparison of the result with concentration in the blood,serum, or plasma is recommended. Performed By: #### M 100.2900, L504.0250, M100.2000, L503.0300, M100.4001, L200.0200, L503.0100 ####[facility] [address] [place], [address] COLOR/BF YELLOW Normal [facility] Comment on above: Order Comment: The r eference interval(s) and other method performancespecifications are unavailable for this body fluid.Comparison of the result with concentration in the blood,serum, or plasma is recommended. Performed By: #### M 100.2900, L504.0250, M100.2000, L503.0300, M100.4001, L200.0200, L503.0100 ####[facility] [address] [place], [address] BFM 2ND SPEC SEE COMMENT Normal [facility] Comment on above: Order Comment: The r eference interval(s) and other method performancespecifications are unavailable for this body fluid.Comparison of the result with concentration in the blood,serum, or plasma is recommended. Performed By: #### M 100.2900, L504.0250, M100.2000, L503.0300, M100.4001, L200.0200, L503.0100 ####[facility] [address] [place], [address] SOURCE/BF THORACENTESIS Normal [facility] Comment on above: Order Comment: The r eference interval(s) and other method performancespecifications are unavailable for this body fluid.Comparison of the result with concentration in the blood,serum, or plasma is recommended. Performed By: #### M 100.2900, L504.0250, M100.2000, L503.0300, M100.4001, L200.0200, L503.0100 ####[facility] [address] [place], [address] PATH COMM/BF May follow Normal [facility] Comment on above: Order Comment: The r eference interval(s) and other method performancespecifications are unavailable for this body fluid.Comparison of the result with concentration in the blood,serum, or plasma is recommended. Performed By: #### M 100.2900, L504.0250, M100.2000, L503.0300, M100.4001, L200.0200, L503.0100 ####[facility] [address] [place], [address] CBC W/Diff, Automatedon 06-0 2-2024 Absolute Lymph 0.56 X10 3/uL Low 0.83-4.51 [facility] Comment on above: Performed By: #### L 100.0100, L500.2500 ####[facility] [address] [place], [address] Absolute Neut 5.4 X10 3/uL Normal 2.0-7.7 [facility] Comment on above: Performed By: #### L 100.0100, L500.2500 ####[facility] [address] [place], [address] Basophils/100 WBC (Bld) 0.2 % Normal 0-1 [facility] Comment on above: Performed By: #### L 100.0100, L500.2500 ####[facility] [address] [place], [address] Eosinophils/100 WBC (Bld) 1.5 % Normal 0-5 [facility] Comment on above: Performed By: #### L 100.0100, L500.2500 ####[facility] [address] [place], [address] Erythrocyte distribution width (RBC) [Ratio] 16.4 % High 11.6-14.6 [facility] Comment on above: Performed By: #### L 100.0100, L500.2500 ####[facility] [address] [place], [address] Hematocrit (Bld) [Volume fraction] 28.4 % Low 37-47 [facility] Comment on above: Performed By: #### L 100.0100, L500.2500 ####[facility] [address] [place], [address] Hemoglobin (Bld) [Mass/Vol] 8.7 g/dL Low 12.0-15.0 [facility] Comment on above: Performed By: #### L 100.0100, L500.2500 ####[facility] [address] [place], [address] IG% 0.500 Normal 0.0-0.9 [facility] Comment on above: Result Comment: IG% - Immature Granulocytes (promyelocytes, myelocytes andmetamyelocytes) > 1% indicates that a LEFT SHIFT is Present. Performed By: #### L 100.0100, L500.2500 ####[facility] [address] [place], [address] Lymphocytes/100 WBC (Bld) 8.5 % Low 19-41 [facility] Comment on above: Performed By: #### L 100.0100, L500.2500 ####[facility] [address] [place], [address] MCH (RBC) [Entitic mass] 28.4 pg Normal 27.0-32.0 [facility] Comment on above: Performed By: #### L 100.0100, L500.2500 ####[facility] [address] [place], [address] MCHC (RBC) [Mass/Vol] 30.6 g/dL Low 32-36 [facility] Comment on above: Performed By: #### L 100.0100, L500.2500 ####[facility] [address] [place], [address] MCV (RBC) [Entitic vol] 92.8 fL Normal 81-99 [facility] Comment on above: Performed By: #### L 100.0100, L500.2500 ####[facility] [address] [place], [address] Monocytes/100 WBC (Bld) 7.3 % Normal 0-10 [facility] Comment on above: Performed By: #### L 100.0100, L500.2500 ####[facility] [address] [place], [address] Neutrophils/100 WBC (Bld) 82.0 % High 47-70 [facility] Comment on above: Performed By: #### L 100.0100, L500.2500 ####[facility] [address] [place], [address] Nucleated RBC (Bld) [#/Vol] 0 10*3/uL Normal 0-5 [facility] Comment on above: Performed By: #### L 100.0100, L500.2500 ####[facility] [address] [place], [address] Platelet mean volume (Bld) [Entitic vol] 9.8 fL Normal 6.2-12.0 [facility] Comment on above: Performed By: #### L 100.0100, L500.2500 ####[facility] [address] [place], [address] Platelets (Bld) [#/Vol] 183 10*3/uL Normal 150-450 [facility] Comment on above: Performed By: #### L 100.0100, L500.2500 ####[facility] [address] [place], [address] RBC (Bld) [#/Vol] 3.06 10*6/uL Low 4.2-5.4 [facility] Comment on above: Performed By: #### L 100.0100, L500.2500 ####[facility] [address] [place], [address] RDW SD 55.7 fl High 35.1-43.9 [facility] Comment on above: Performed By: #### L 100.0100, L500.2500 ####[facility] [address] [place], [address] WBC (Bld) [#/Vol] 6.6 10*3/uL Normal 4.4-11.0 [facility] Comment on above: Performed By: #### L 100.0100, L500.2500 ####[facility] [address] [place], [address] Chest 1 View (Portable)on Chest 1 View (Portable) Normal [facility] Chest Insp/Exp 2 Viewon Chest Insp/Exp 2 View Normal [facility] Complement C3on 04-22-2025 COMP C3 127 mg/dL Normal 82-167 [facility] Comment on above: Result Comment: Perf ormed at: - [facility] [id number] [place], [place] [id number] Director: Truman Maier PhD, Phone: [phone] Performed By: #### L 7424.4854, V9408.3960 ####[facility] [address] [place], [address] Consultation - Intensiviston 04-22-2025 Consultation - Test Eng Normal [facility] Glucose, Body Fluidon 2024 GLUC, BODY FLD 164 mg/dL Normal Not Establ. [facility] Comment on above: Performed By: #### M 100.2900, L504.0250, M100.2000, L503.0300, M100.4001, L200.0200, L503.0100 ####[facility] [address] [place], [address] Gram Stainon 04-22-2025 GS Centrifuged Specimen ? Culture performed on centrifuged specimen Gram Stain No organisms seen 4+ Red Blood Cells 1+ White Blood Cells Normal [facility] Comment on above: Performed By: #### M 100.2900, L504.0250, M100.2000, L503.0300, M100.4001, L200.0200, L503.0100 ####[facility] [address] [place], [address] LDHon 04-22-2025 LDH 231 U/L Normal 84-246 [facility] Comment on above: Result Comment: Hemo lysis present, Results??could be affected.?? Performed By: #### L 504.2610, L001.0705 ####[facility] [address] [place], [address] LDH,Body Fluidon 04-22-2025 LDH,BF 114 Units/L Normal Not Establ. [facility] Comment on above: Performed By: #### M 100.2900, L504.0250, M100.2000, L503.0300, M100.4001, L200.0200, L503.0100 ####[facility] [address] [place], [address] Partial Thromboplast Timeon 04-22-2025 aPTT Coag (Bld) [Time] 28.0 s Normal 24.1-36.2 [facility] Comment on above: Performed By: #### L 300.3900, L300.4310 ####[facility] [address] [place], [address] Protein Electroph, Son 04-22 Albumin [Mass/Vol] 2.7 g/dL Low 2.9-4.4 [facility] Comment on above: Performed By: #### L 3100.3450 ####[facility] [address] [place], [address] Albumin/Globulin [Mass ratio] 0.7 {ratio} Normal 0.7-1.7 [facility] Comment on above: Performed By: #### L 3100.3450 ####[facility] [address] [place], [address] ALPHA-1 GLOBUL 0.5 g/dL High 0.0-0.4 [facility] Comment on above: Performed By: #### L 3100.3450 ####[facility] [address] [place], [address] ALPHA-2 GLOBUL 1.1 g/dL High 0.4-1.0 [facility] Comment on above: Performed By: #### L 3100.3450 ####[facility] [address] [place], [address] BETA GLOBULIN 0.8 g/dL Normal 0.7-1.3 [facility] Comment on above: Performed By: #### L 3100.3450 ####[facility] [address] [place], [address] GAMMA GLOBULIN 1.4 g/dL Normal 0.4-1.8 [facility] Comment on above: Performed By: #### L 3100.3450 ####[facility] [address] [place], [address] Globulin (S) [Mass/Vol] 3.7 g/dL Normal 2.2-3.9 [facility] Comment on above: Performed By: #### L 3100.3450 ####[facility] [address] [place], [address] INTERPRETATION Comment Normal . [facility] Comment on above: Result Comment: Prot ein electrophoresis scan will follow via computer,mail, or endocrinology specialist delivery. Performed By: #### L 3100.3450 ####[facility] [address] [place], [address] M-SPIKE Comment: Normal Not Observed [facility] Comment on above: Result Comment: SPE shows an asymmetrical gamma. Performed By: #### L 3100.3450 ####[facility] [address] [place], [address] NOTE: Comment Normal . [facility] Comment on above: Result Comment: Sam t band in gamma region suspicious for monoclonalimmunoglobulin. This band may represent a benign spike asseen in older people or could be a paraprotein as seen inMultiple Myeloma, Waldenstrom's Macroglobulinemia orLymphoma. Depending on clinical circumstances, furtherdiagnostic studies may include serum immunofixation orserum free light chain quantitation.Performed at: [facility] [place] [id number] Director: Truman Maier PhD, Phone: [phone] Performed By: #### L 3100.3450 ####[facility] [address] [place], [address] Protein [Mass/Vol] 6.4 g/dL Normal 6.0-8.5 [facility] Comment on above: Performed By: #### L 3100.3450 ####[facility] [address] [place], [address] Protein, Body Fluidon 2024 Protein [Mass/Vol] 2.6 g/dL Normal Not Establ. [facility] Comment on above: Performed By: #### M 100.2900, L504.0250, M100.2000, L503.0300, M100.4001, L200.0200, L503.0100 ####[facility] [address] [place], [address] Protein, Totalon 04-22-2025 T PROT 5.9 g/dL Normal 5.9-8.4 [facility] Comment on above: Performed By: #### L 504.2610, L001.0705 ####[facility] [address] [place], [address] Prothrombin Time w/INRon INR Coag (PPP) [Relative time] 1.4 {INR} Normal [facility] Comment on above: Performed By: #### L 300.3900, L300.4310 ####[facility] [address] [place], [address] PT Coag (PPP) [Time] 17.5 s High 11.7-14.9 [facility] Comment on above: Performed By: #### L 300.3900, L300.4310 ####[facility] [address] [place], [address] Respiratory Cultureon 2024 RESPC Normal [facility] Comment on above: Performed By: #### M 100.2400, M100.2000 ####[facility] [address] [place], [address] Thoracentesis W USon 025 Thoracentesis W US Normal [facility] Basic Metabolic Profile (BMP )on 04-21-2025 BUN/CRE 48.0 RATIO High 10-20 [facility] Comment on above: Performed By: #### L 500.2500, L100.0100 ####[facility] [address] [place], [address] Calcium [Mass/Vol] 8.4 mg/dL Normal 7.6-11.0 [facility] Comment on above: Performed By: #### L 500.2500, L100.0100 ####[facility] [address] [place], [address] Chloride [Moles/Vol] 107 mmol/L Normal 98-108 [facility] Comment on above: Performed By: #### L 500.2500, L100.0100 ####[facility] [address] [place], [address] CO2 [Moles/Vol] 24.1 mmol/L Normal 21.0-32.0 [facility] Comment on above: Performed By: #### L 500.2500, L100.0100 ####[facility] [address] [place], [address] Creatinine [Mass/Vol] 1.98 mg/dL High 0.70-1.20 [facility] Comment on above: Performed By: #### L 500.2500, L100.0100 ####[facility] [address] [place], [address] ECRCL 21.37 ml/min Low 50-250 [facility] Comment on above: Performed By: #### L 500.2500, L100.0100 ####[facility] [address] [place], [address] GAP 11 Normal 5-15 [facility] Comment on above: Performed By: #### L 500.2500, L100.0100 ####[facility] [address] [place], [address] GFR/1.73 sq M.predicted among non-blacks MDRD (S/P/Bld) [Vol rate/Area] 24 mL/min/{1.73_m2} Low >60 [facility] Comment on above: Result Comment: mL/m in/1.73m2 CKD-EPI Creatinine Equation (2020) Performed By: #### L 500.2500, L100.0100 ####[facility] [address] [place], [address] Glucose [Mass/Vol] 156 mg/dL High 70-99 [facility] Comment on above: Performed By: #### L 500.2500, L100.0100 ####[facility] [address] [place], [address] Potassium [Moles/Vol] 4.3 mmol/L Normal 3.3-5.1 [facility] Comment on above: Result Comment: Hemo lysis present, Results??could be affected.?? Performed By: #### L 500.2500, L100.0100 ####[facility] [address] [place], [address] Sodium [Moles/Vol] 142 mmol/L Normal 133-145 [facility] Comment on above: Performed By: #### L 500.2500, L100.0100 ####[facility] [address] [place], [address] Urea nitrogen [Mass/Vol] 95 mg/dL High 4-19 [facility] Comment on above: Performed By: #### L 500.2500, L100.0100 ####[facility] [address] [place], [address] Bedside Glucoseon 04-21-2025 FINGERSTICK GLU 144 mg/dL High 74-106 [facility] Comment on above: Result Comment: RSUSELL GEMENT OF PATIENT CARE PER NURSING PROTOCOL Performed By: #### L 501.080 ####[facility] [address] [place], [address] FINGERSTICK GLU 160 mg/dL High 74-106 [facility] Comment on above: Result Comment: RUSSELL GEMENT OF PATIENT CARE PER NURSING PROTOCOL Performed By: #### L 501.080 ####[facility] [address] [place], [address] FINGERSTICK GLU 152 mg/dL High 74-106 [facility] Comment on above: Result Comment: RUSSELL GEMENT OF PATIENT CARE PER NURSING PROTOCOL Performed By: #### L 501.080 ####[facility] [address] [place], [address] CBC W/Diff, Automatedon 06-0 1-2024 Absolute Lymph 0.65 X10 3/uL Low 0.83-4.51 [facility] Comment on above: Performed By: #### L 500.2500, L100.0100 ####[facility] [address] [place], [address] Absolute Neut 7.2 X10 3/uL Normal 2.0-7.7 [facility] Comment on above: Performed By: #### L 500.2500, L100.0100 ####[facility] [address] [place], [address] Basophils/100 WBC (Bld) 0.1 % Normal 0-1 [facility] Comment on above: Performed By: #### L 500.2500, L100.0100 ####[facility] [address] [place], [address] Eosinophils/100 WBC (Bld) 0.7 % Normal 0-5 [facility] Comment on above: Performed By: #### L 500.2500, L100.0100 ####[facility] [address] [place], [address] Erythrocyte distribution width (RBC) [Ratio] 16.4 % High 11.6-14.6 [facility] Comment on above: Performed By: #### L 500.2500, L100.0100 ####[facility] [address] [place], [address] Hematocrit (Bld) [Volume fraction] 34.8 % Low 37-47 [facility] Comment on above: Performed By: #### L 500.2500, L100.0100 ####[facility] [address] [place], [address] Hemoglobin (Bld) [Mass/Vol] 11.1 g/dL Low 12.0-15.0 [facility] Comment on above: Performed By: #### L 500.2500, L100.0100 ####[facility] [address] [place], [address] IG% 0.300 Normal 0.0-0.9 [facility] Comment on above: Result Comment: IG% - Immature Granulocytes (promyelocytes, myelocytes andmetamyelocytes) > 1% indicates that a LEFT SHIFT is Present. Performed By: #### L 500.2500, L100.0100 ####[facility] [address] [place], [address] Lymphocytes/100 WBC (Bld) 7.5 % Low 19-41 [facility] Comment on above: Performed By: #### L 500.2500, L100.0100 ####[facility] [address] [place], [address] MCH (RBC) [Entitic mass] 28.8 pg Normal 27.0-32.0 [facility] Comment on above: Performed By: #### L 500.2500, L100.0100 ####[facility] [address] [place], [address] MCHC (RBC) [Mass/Vol] 31.9 g/dL Low 32-36 [facility] Comment on above: Performed By: #### L 500.2500, L100.0100 ####[facility] [address] [place], [address] MCV (RBC) [Entitic vol] 90.2 fL Normal 81-99 [facility] Comment on above: Performed By: #### L 500.2500, L100.0100 ####[facility] [address] [place], [address] Monocytes/100 WBC (Bld) 8.5 % Normal 0-10 [facility] Comment on above: Performed By: #### L 500.2500, L100.0100 ####[facility] [address] [place], [address] Neutrophils/100 WBC (Bld) 82.9 % High 47-70 [facility] Comment on above: Performed By: #### L 500.2500, L100.0100 ####[facility] [address] [place], [address] Nucleated RBC (Bld) [#/Vol] 0 10*3/uL Normal 0-5 [facility] Comment on above: Performed By: #### L 500.2500, L100.0100 ####[facility] [address] [place], [address] Platelet mean volume (Bld) [Entitic vol] 9.7 fL Normal 6.2-12.0 [facility] Comment on above: Performed By: #### L 500.2500, L100.0100 ####[facility] [address] [place], [address] Platelets (Bld) [#/Vol] 240 10*3/uL Normal 150-450 [facility] Comment on above: Performed By: #### L 500.2500, L100.0100 ####[facility] [address] [place], [address] RBC (Bld) [#/Vol] 3.86 10*6/uL Low 4.2-5.4 [facility] Comment on above: Performed By: #### L 500.2500, L100.0100 ####[facility] [address] [place], [address] RDW SD 54.4 fl High 35.1-43.9 [facility] Comment on above: Performed By: #### L 500.2500, L100.0100 ####[facility] [address] [place], [address] WBC (Bld) [#/Vol] 8.7 10*3/uL Normal 4.4-11.0 [facility] Comment on above: Performed By: #### L 500.2500, L100.0100 ####[facility] [address] [place], [address] Consultation - Surgicalon Consultation - Surgical Normal [facility] Basic Metabolic Profile (BMP )on 04-20-2025 BUN/CRE 42.6 RATIO High 10-20 [facility] Comment on above: Performed By: #### L 100.0100, L500.2500 ####[facility] [address] [place], [address] Calcium [Mass/Vol] 8.7 mg/dL Normal 7.6-11.0 [facility] Comment on above: Performed By: #### L 100.0100, L500.2500 ####[facility] [address] [place], [address] Chloride [Moles/Vol] 99 mmol/L Normal 98-108 [facility] Comment on above: Performed By: #### L 100.0100, L500.2500 ####[facility] [address] [place], [address] CO2 [Moles/Vol] 23.8 mmol/L Normal 21.0-32.0 [facility] Comment on above: Performed By: #### L 100.0100, L500.2500 ####[facility] [address] [place], [address] Creatinine [Mass/Vol] 2.72 mg/dL High 0.70-1.20 [facility] Comment on above: Performed By: #### L 100.0100, L500.2500 ####[facility] [address] [place], [address] ECRCL 15.43 ml/min Low 50-250 [facility] Comment on above: Performed By: #### L 100.0100, L500.2500 ####[facility] [address] [place], [address] GAP 14 Normal 5-15 [facility] Comment on above: Performed By: #### L 100.0100, L500.2500 ####[facility] [address] [place], [address] GFR/1.73 sq M.predicted among non-blacks MDRD (S/P/Bld) [Vol rate/Area] 17 mL/min/{1.73_m2} Low >60 [facility] Comment on above: Result Comment: mL/m in/1.73m2 CKD-EPI Creatinine Equation (2020) Performed By: #### L 100.0100, L500.2500 ####[facility] [address] [place], [address] Glucose [Mass/Vol] 175 mg/dL High 70-99 [facility] Comment on above: Performed By: #### L 100.0100, L500.2500 ####[facility] [address] [place], [address] Potassium [Moles/Vol] 4.0 mmol/L Normal 3.3-5.1 [facility] Comment on above: Performed By: #### L 100.0100, L500.2500 ####[facility] [address] [place], [address] Sodium [Moles/Vol] 137 mmol/L Normal 133-145 [facility] Comment on above: Performed By: #### L 100.0100, L500.2500 ####[facility] [address] [place], [address] Urea nitrogen [Mass/Vol] 116 mg/dL Invalid Interpretation Code 19 [facility] Comment on above: Result Comment: Crit ical Result(s) Called to: Tory GRACIA ([facility]) by:Nabor??Results read back by same. Performed By: #### L 100.0100, L500.2500 ####[facility] [address] [place], [address] Bedside Glucoseon 04-20-2025 FINGERSTICK GLU 164 mg/dL High 74-106 [facility] Comment on above: Result Comment: RUSSELL GEMENT OF PATIENT CARE PER NURSING PROTOCOL Performed By: #### L 501.080 ####[facility] [address] [place], [address] FINGERSTICK GLU 150 mg/dL High 74-106 [facility] Comment on above: Result Comment: RUSSELL GEMENT OF PATIENT CARE PER NURSING PROTOCOL Performed By: #### L 501.080 ####[facility] [address] [place], [address] FINGERSTICK GLU 167 mg/dL High -106 [facility] Comment on above: Result Comment: RUSSELL GEMENT OF PATIENT CARE PER NURSING PROTOCOL Performed By: #### L 501.080 ####[facility] [address] [place], [address] FINGERSTICK GLU 172 mg/dL High [facility]106 [facility] Comment on above: Result Comment: RUSSELL GEMENT OF PATIENT CARE PER NURSING PROTOCOL Performed By: #### L 501.080 ####[facility] [address] [place], [address] Body Fluid Cell Count+Diffon 04-20-2025 BFM 2ND SPEC SEE COMMENT Normal [facility] Comment on above: Order Comment: The r eference interval(s) and other method performancespecifications are unavailable for this body fluid.Comparison of the result with concentration in the blood,serum, or plasma is recommended.THORACENTESIS Performed By: #### L 200.0200 ####[facility] [address] [place], [address] CBC W/Diff, Automatedon 05-3 Absolute Lymph 0.75 X10 3/uL Low 0.83-4.51 [facility] Comment on above: Performed By: #### L 100.0100, L500.2500 ####[facility] [address] [place], [address] Absolute Neut 8.4 X10 3/uL High 2.0-7.7 [facility] Comment on above: Performed By: #### L 100.0100, L500.2500 ####[facility] [address] [place], [address] Basophils/100 WBC (Bld) 0.1 % Normal 0-1 [facility] Comment on above: Performed By: #### L 100.0100, L500.2500 ####[facility] [address] [place], [address] Eosinophils/100 WBC (Bld) 0.3 % Normal 0-5 [facility] Comment on above: Performed By: #### L 100.0100, L500.2500 ####[facility] [address] [place], [address] Erythrocyte distribution width (RBC) [Ratio] 16.5 % High 11.6-14.6 [facility] Comment on above: Performed By: #### L 100.0100, L500.2500 ####[facility] [address] [place], [address] Hematocrit (Bld) [Volume fraction] 34.7 % Low 37-47 [facility] Comment on above: Performed By: #### L 100.0100, L500.2500 ####[facility] [address] [place], [address] Hemoglobin (Bld) [Mass/Vol] 10.9 g/dL Low 12.0-15.0 [facility] Comment on above: Performed By: #### L 100.0100, L500.2500 ####[facility] [address] [place], [address] IG% 0.500 Normal 0.0-0.9 [facility] Comment on above: Result Comment: IG% - Immature Granulocytes (promyelocytes, myelocytes andmetamyelocytes) > 1% indicates that a LEFT SHIFT is Present. Performed By: #### L 100.0100, L500.2500 ####[facility] [address] [place], [address] Lymphocytes/100 WBC (Bld) 7.6 % Low 19-41 [facility] Comment on above: Performed By: #### L 100.0100, L500.2500 ####[facility] [address] [place], [address] MCH (RBC) [Entitic mass] 28.2 pg Normal 27.0-32.0 [facility] Comment on above: Performed By: #### L 100.0100, L500.2500 ####[facility] [address] [place], [address] MCHC (RBC) [Mass/Vol] 31.4 g/dL Low 32-36 [facility] Comment on above: Performed By: #### L 100.0100, L500.2500 ####[facility] [address] [place], [address] MCV (RBC) [Entitic vol] 89.7 fL Normal 81-99 [facility] Comment on above: Performed By: #### L 100.0100, L500.2500 ####[facility] [address] [place], [address] Monocytes/100 WBC (Bld) 7.2 % Normal 0-10 [facility] Comment on above: Performed By: #### L 100.0100, L500.2500 ####[facility] [address] [place], [address] Neutrophils/100 WBC (Bld) 84.3 % High 47-70 [facility] Comment on above: Performed By: #### L 100.0100, L500.2500 ####[facility] [address] [place], [address] Nucleated RBC (Bld) [#/Vol] 0 10*3/uL Normal 0-5 [facility] Comment on above: Performed By: #### L 100.0100, L500.2500 ####[facility] [address] [place], [address] Platelet mean volume (Bld) [Entitic vol] 9.7 fL Normal 6.2-12.0 [facility] Comment on above: Performed By: #### L 100.0100, L500.2500 ####[facility] [address] [place], [address] Platelets (Bld) [#/Vol] 278 10*3/uL Normal 150-450 [facility] Comment on above: Performed By: #### L 100.0100, L500.2500 ####[facility] [address] [place], [address] RBC (Bld) [#/Vol] 3.87 10*6/uL Low 4.2-5.4 [facility] Comment on above: Performed By: #### L 100.0100, L500.2500 ####[facility] [address] [place], [address] RDW SD 53.6 fl High 35.1-43.9 [facility] Comment on above: Performed By: #### L 100.0100, L500.2500 ####[facility] [address] [place], [address] WBC (Bld) [#/Vol] 9.9 10*3/uL Normal 4.4-11.0 [facility] Comment on above: Performed By: #### L 100.0100, L500.2500 ####[facility] [address] [place], [address] Chest 1 View (Portable)on Chest 1 View (Portable) Normal [facility] Basic Metabolic Profile (BMP )on 04-19-2025 BUN/CRE 36.9 RATIO High 10-20 [facility] Comment on above: Performed By: #### L 100.0100, L500.2500 ####[facility] [address] [place], [address] Calcium [Mass/Vol] 9.1 mg/dL Normal 7.6-11.0 [facility] Comment on above: Performed By: #### L 100.0100, L500.2500 ####[facility] [address] [place], [address] Chloride [Moles/Vol] 98 mmol/L Normal 98-108 [facility] Comment on above: Performed By: #### L 100.0100, L500.2500 ####[facility] [address] [place], [address] CO2 [Moles/Vol] 23.6 mmol/L Normal 21.0-32.0 [facility] Comment on above: Performed By: #### L 100.0100, L500.2500 ####[facility] [address] [place], [address] Creatinine [Mass/Vol] 2.93 mg/dL High 0.70-1.20 [facility] Comment on above: Performed By: #### L 100.0100, L500.2500 ####[facility] [address] [place], [address] ECRCL 14.44 ml/min Low 50-250 [facility] Comment on above: Performed By: #### L 100.0100, L500.2500 ####[facility] [address] [place], [address] GAP 14 Normal 5-15 [facility] Comment on above: Performed By: #### L 100.0100, L500.2500 ####[facility] [address] [place], [address] GFR/1.73 sq M.predicted among non-blacks MDRD (S/P/Bld) [Vol rate/Area] 15 mL/min/{1.73_m2} Low >60 [facility] Comment on above: Result Comment: mL/m in/1.73m2 CKD-EPI Creatinine Equation (2020) Performed By: #### L 100.0100, L500.2500 ####[facility] [address] [place], [address] Glucose [Mass/Vol] 169 mg/dL High 70-99 [facility] Comment on above: Performed By: #### L 100.0100, L500.2500 ####[facility] [address] [place], [address] Potassium [Moles/Vol] 4.1 mmol/L Normal 3.3-5.1 [facility] Comment on above: Performed By: #### L 100.0100, L500.2500 ####[facility] [address] [place], [address] Sodium [Moles/Vol] 136 mmol/L Normal 133-145 [facility] Comment on above: Performed By: #### L 100.0100, L500.2500 ####[facility] [address] [place], [address] Urea nitrogen [Mass/Vol] 108 mg/dL Invalid Interpretation Code 4- [facility] Comment on above: Result Comment: Crit ical Result(s) Called at 0809: by: TYREE SOTO.??Results read back by same. Performed By: #### L 100.0100, L500.2500 ####[facility] [address] [place], [address] Bedside Glucoseon 04-19-2025 FINGERSTICK GLU 154 mg/dL High 74-106 [facility] Comment on above: Result Comment: RUSSELL GEMENT OF PATIENT CARE PER NURSING PROTOCOL Performed By: #### L 501.080 ####[facility] [address] [place], [address] FINGERSTICK GLU 179 mg/dL High 74-106 [facility] Comment on above: Result Comment: RUSSELL GEMENT OF PATIENT CARE PER NURSING PROTOCOL Performed By: #### L 501.080 ####[facility] [address] [place], [address] FINGERSTICK GLU 146 mg/dL High -106 [facility] Comment on above: Result Comment: RUSSELL GEMENT OF PATIENT CARE PER NURSING PROTOCOL Performed By: #### L 501.080 ####[facility] [address] [place], [address] FINGERSTICK GLU 154 mg/dL High -106 [facility] Comment on above: Result Comment: RUSSELL GEMENT OF PATIENT CARE PER NURSING PROTOCOL Performed By: #### L 501.080 ####[facility] [address] [place], [address] Body Fluid Cell Count+Diffon 04-19-2025 PATH COMM/BF May follow Normal [facility] Comment on above: Order Comment: The r eference interval(s) and other method performancespecifications are unavailable for this body fluid.Comparison of the result with concentration in the blood,serum, or plasma is recommended.THORACENTESIS Performed By: #### L 200.0200 ####[facility] [address] [place], [address] CBC W/Diff, Automatedon 05-3 0-2024 Absolute Lymph 0.71 X10 3/uL Low 0.83-4.51 [facility] Comment on above: Performed By: #### L 100.0100, L500.2500 ####[facility] [address] [place], [address] Absolute Neut 11.1 X10 3/uL High 2.0-7.7 [facility] Comment on above: Performed By: #### L 100.0100, L500.2500 ####[facility] [address] [place], [address] Basophils/100 WBC (Bld) 0.2 % Normal 0-1 [facility] Comment on above: Performed By: #### L 100.0100, L500.2500 ####[facility] [address] [place], [address] Eosinophils/100 WBC (Bld) 0.2 % Normal 0-5 [facility] Comment on above: Performed By: #### L 100.0100, L500.2500 ####[facility] [address] [place], [address] Erythrocyte distribution width (RBC) [Ratio] 16.7 % High 11.6-14.6 [facility] Comment on above: Performed By: #### L 100.0100, L500.2500 ####[facility] [address] [place], [address] Hematocrit (Bld) [Volume fraction] 39.6 % Normal 37-47 [facility] Comment on above: Performed By: #### L 100.0100, L500.2500 ####[facility] [address] [place], [address] Hemoglobin (Bld) [Mass/Vol] 12.4 g/dL Normal 12.0-15.0 [facility] Comment on above: Performed By: #### L 100.0100, L500.2500 ####[facility] [address] [place], [address] IG% 0.800 Normal 0.0-0.9 [facility] Comment on above: Result Comment: IG% - Immature Granulocytes (promyelocytes, myelocytes andmetamyelocytes) > 1% indicates that a LEFT SHIFT is Present. Performed By: #### L 100.0100, L500.2500 ####[facility] [address] [place], [address] Lymphocytes/100 WBC (Bld) 5.6 % Low 19-41 [facility] Comment on above: Performed By: #### L 100.0100, L500.2500 ####[facility] [address] [place], [address] MCH (RBC) [Entitic mass] 28.0 pg Normal 27.0-32.0 [facility] Comment on above: Performed By: #### L 100.0100, L500.2500 ####[facility] [address] [place], [address] MCHC (RBC) [Mass/Vol] 31.3 g/dL Low 32-36 [facility] Comment on above: Performed By: #### L 100.0100, L500.2500 ####[facility] [address] [place], [address] MCV (RBC) [Entitic vol] 89.4 fL Normal 81-99 [facility] Comment on above: Performed By: #### L 100.0100, L500.2500 ####[facility] [address] [place], [address] Monocytes/100 WBC (Bld) 5.5 % Normal 0-10 [facility] Comment on above: Performed By: #### L 100.0100, L500.2500 ####[facility] [address] [place], [address] Neutrophils/100 WBC (Bld) 87.7 % High 47-70 [facility] Comment on above: Performed By: #### L 100.0100, L500.2500 ####[facility] [address] [place], [address] Nucleated RBC (Bld) [#/Vol] 0 10*3/uL Normal 0-5 [facility] Comment on above: Performed By: #### L 100.0100, L500.2500 ####[facility] [address] [place], [address] Platelet mean volume (Bld) [Entitic vol] 10.0 fL Normal 6.2-12.0 [facility] Comment on above: Performed By: #### L 100.0100, L500.2500 ####[facility] [address] [place], [address] Platelets (Bld) [#/Vol] 373 10*3/uL Normal 150-450 [facility] Comment on above: Performed By: #### L 100.0100, L500.2500 ####[facility] [address] [place], [address] RBC (Bld) [#/Vol] 4.43 10*6/uL Normal 4.2-5.4 [facility] Comment on above: Performed By: #### L 100.0100, L500.2500 ####[facility] [address] [place], [address] RDW SD 54.2 fl High 35.1-43.9 [facility] Comment on above: Performed By: #### L 100.0100, L500.2500 ####[facility] [address] [place], [address] WBC (Bld) [#/Vol] 12.6 10*3/uL High 4.4-11.0 [facility] Comment on above: Performed By: #### L 100.0100, L500.2500 ####[facility] [address] [place], [address] Chest Insp/Exp 2 Viewon 05-3 Chest Insp/Exp 2 View Normal [facility] Glucose, Body Fluidon 2024 GLUC, BODY FLD 173 mg/dL Normal Not Establ. [facility] Comment on above: Performed By: #### L 503.0300, L501.2300, L504.0250, L503.0100, L500.2500, L501.5200, L100.0100 ####[facility] [address] [place], [address] LDH,Body Fluidon 04-19-2025 LDH,BF 201 Units/L Normal Not Establ. [facility] Comment on above: Performed By: #### L 503.0300, L501.2300, L504.0250, L503.0100, L500.2500, L501.5200, L100.0100 ####[facility] [address] [place], [address] Partial Thromboplast Timeon 04-19-2025 aPTT Coag (Bld) [Time] 54.9 s High 24.1-36.2 [facility] Comment on above: Performed By: #### L 300.4310 ####[facility] [address] [place], [address] Protein, Body Fluidon 2024 Protein [Mass/Vol] 3.9 g/dL Normal Not Establ. [facility] Comment on above: Performed By: #### L 503.0300, L501.2300, L504.0250, L503.0100, L500.2500, L501.5200, L100.0100 ####[facility] [address] [place], [address] Prothrombin Time w/INRon INR Coag (PPP) [Relative time] 2.1 {INR} Normal [facility] Comment on above: Performed By: #### L 300.3900 ####[facility] [address] [place], [address] PT Coag (PPP) [Time] 23.8 s High 11.7-14.9 [facility] Comment on above: Performed By: #### L 300.3900 ####[facility] [address] [place], [address] Basic Metabolic Profile (BMP )on 04-18-2025 BUN/CRE 33.7 RATIO High 10-20 [facility] Comment on above: Performed By: #### L 503.0300, L501.2300, L504.0250, L503.0100, L500.2500, L501.5200, L100.0100 ####[facility] [address] [place], [address] Calcium [Mass/Vol] 9.3 mg/dL Normal 7.6-11.0 [facility] Comment on above: Performed By: #### L 503.0300, L501.2300, L504.0250, L503.0100, L500.2500, L501.5200, L100.0100 ####[facility] [address] [place], [address] Chloride [Moles/Vol] 100 mmol/L Normal 98-108 [facility] Comment on above: Performed By: #### L 503.0300, L501.2300, L504.0250, L503.0100, L500.2500, L501.5200, L100.0100 ####[facility] [address] [place], [address] CO2 [Moles/Vol] 24.2 mmol/L Normal 21.0-32.0 [facility] Comment on above: Performed By: #### L 503.0300, L501.2300, L504.0250, L503.0100, L500.2500, L501.5200, L100.0100 ####[facility] [address] [place], [address] Creatinine [Mass/Vol] 2.86 mg/dL High 0.70-1.20 [facility] Comment on above: Performed By: #### L 503.0300, L501.2300, L504.0250, L503.0100, L500.2500, L501.5200, L100.0100 ####[facility] [address] [place], [address] ECRCL 14.79 ml/min Low 50-250 [facility] Comment on above: Performed By: #### L 503.0300, L501.2300, L504.0250, L503.0100, L500.2500, L501.5200, L100.0100 ####[facility] [address] [place], [address] GAP 16 High 5-15 [facility] Comment on above: Performed By: #### L 503.0300, L501.2300, L504.0250, L503.0100, L500.2500, L501.5200, L100.0100 ####[facility] [address] [place], [place], [phone] GFR/1.73 sq M.predicted among non-blacks MDRD (S/P/Bld) [Vol rate/Area] 16 mL/min/{1.73_m2} Low >60 [facility] Comment on above: Result Comment: mL/m in/1.73m2 CKD-EPI Creatinine Equation (2020) Performed By: #### L 503.0300, L501.2300, L504.0250, L503.0100, L500.2500, L501.5200, L100.0100 ####[facility] [address] [place], [place], [address] Glucose [Mass/Vol] 191 mg/dL High 70-99 [facility] Comment on above: Performed By: #### L 503.0300, L501.2300, L504.0250, L503.0100, L500.2500, L501.5200, L100.0100 ####[facility] [address] [place], [address] Potassium [Moles/Vol] 4.4 mmol/L Normal 3.3-5.1 [facility] Comment on above: Performed By: #### L 503.0300, L501.2300, L504.0250, L503.0100, L500.2500, L501.5200, L100.0100 ####[facility] [address] [place], [address] Sodium [Moles/Vol] 140 mmol/L Normal 133-145 [facility] Comment on above: Performed By: #### L 503.0300, L501.2300, L504.0250, L503.0100, L500.2500, L501.5200, L100.0100 ####[facility] [address] [place], [address] Urea nitrogen [Mass/Vol] 96 mg/dL High 4-19 [facility] Comment on above: Performed By: #### L 503.0300, L501.2300, L504.0250, L503.0100, L500.2500, L501.5200, L100.0100 ####[facility] [address] [place], [address] Bedside Glucoseon 04-18-2025 FINGERSTICK GLU 167 mg/dL High 74-106 [facility] Comment on above: Result Comment: RUSSELL GEMENT OF PATIENT CARE PER NURSING PROTOCOL Performed By: #### L 501.080 ####[facility] [address] [place], [address] FINGERSTICK GLU 153 mg/dL High 74-106 [facility] Comment on above: Result Comment: RUSSELL GEMENT OF PATIENT CARE PER NURSING PROTOCOL Performed By: #### L 501.080 ####[facility] [address] [place], [address] FINGERSTICK GLU 181 mg/dL High 74-106 [facility] Comment on above: Result Comment: RUSSELL GEMENT OF PATIENT CARE PER NURSING PROTOCOL Performed By: #### L 501.080 ####[facility] [address] [place], [address] FINGERSTICK GLU 176 mg/dL High 74-106 [facility] Comment on above: Result Comment: RUSSELL GEMENT OF PATIENT CARE PER NURSING PROTOCOL Performed By: #### L 501.080 ####[facility] [address] [place], [address] CBC W/Diff, Automatedon 05-2 -2024 Absolute Lymph 0.49 X10 3/uL Low 0.83-4.51 [facility] Comment on above: Performed By: #### L 503.0300, L501.2300, L504.0250, L503.0100, L500.2500, L501.5200, L100.0100 ####[facility] [address] [place], [address] Absolute Neut 12.4 X10 3/uL High 2.0-7.7 [facility] Comment on above: Performed By: #### L 503.0300, L501.2300, L504.0250, L503.0100, L500.2500, L501.5200, L100.0100 ####[facility] [address] [place], [address] Basophils/100 WBC (Bld) 0.1 % Normal 0-1 [facility] Comment on above: Performed By: #### L 503.0300, L501.2300, L504.0250, L503.0100, L500.2500, L501.5200, L100.0100 ####[facility] [address] [place], [address] Eosinophils/100 WBC (Bld) 0.0 % Normal 0-5 [facility] Comment on above: Performed By: #### L 503.0300, L501.2300, L504.0250, L503.0100, L500.2500, L501.5200, L100.0100 ####[facility] [id number] [place], [address] Erythrocyte distribution width (RBC) [Ratio] 16.7 % High 11.6-14.6 [facility] Comment on above: Performed By: #### L 503.0300, L501.2300, L504.0250, L503.0100, L500.2500, L501.5200, L100.0100 ####[facility] [id number] [place], [address] Hematocrit (Bld) [Volume fraction] 39.6 % Normal 37-47 [facility] Comment on above: Performed By: #### L 503.0300, L501.2300, L504.0250, L503.0100, L500.2500, L501.5200, L100.0100 ####[facility] [id number] [place], [address] Hemoglobin (Bld) [Mass/Vol] 12.7 g/dL Normal 12.0-15.0 [facility] Comment on above: Performed By: #### L 503.0300, L501.2300, L504.0250, L503.0100, L500.2500, L501.5200, L100.0100 ####[facility] [id number] [place], [address] IG% 0.600 Normal 0.0-0.9 [facility] Comment on above: Result Comment: IG% - Immature Granulocytes (promyelocytes, myelocytes andmetamyelocytes) > 1% indicates that a LEFT SHIFT is Present. Performed By: #### L 503.0300, L501.2300, L504.0250, L503.0100, L500.2500, L501.5200, L100.0100 ####[facility] [address] [place], [address] Lymphocytes/100 WBC (Bld) 3.5 % Low 19-41 [facility] Comment on above: Performed By: #### L 503.0300, L501.2300, L504.0250, L503.0100, L500.2500, L501.5200, L100.0100 ####[facility] [address] [place], [address] MCH (RBC) [Entitic mass] 28.5 pg Normal 27.0-32.0 [facility] Comment on above: Performed By: #### L 503.0300, L501.2300, L504.0250, L503.0100, L500.2500, L501.5200, L100.0100 ####[facility] [address] [place], [address] MCHC (RBC) [Mass/Vol] 32.1 g/dL Normal 32-36 [facility] Comment on above: Performed By: #### L 503.0300, L501.2300, L504.0250, L503.0100, L500.2500, L501.5200, L100.0100 ####[facility] [address] [place], [address] MCV (RBC) [Entitic vol] 89.0 fL Normal 81-99 [facility] Comment on above: Performed By: #### L 503.0300, L501.2300, L504.0250, L503.0100, L500.2500, L501.5200, L100.0100 ####[facility] [address] [place], [address] Monocytes/100 WBC (Bld) 6.3 % Normal 0-10 [facility] Comment on above: Performed By: #### L 503.0300, L501.2300, L504.0250, L503.0100, L500.2500, L501.5200, L100.0100 ####[facility] [address] [place], [address] Neutrophils/100 WBC (Bld) 89.5 % High 47-70 [facility] Comment on above: Performed By: #### L 503.0300, L501.2300, L504.0250, L503.0100, L500.2500, L501.5200, L100.0100 ####[facility] [address] [place], [address] Nucleated RBC (Bld) [#/Vol] 0 10*3/uL Normal 0-5 [facility] Comment on above: Performed By: #### L 503.0300, L501.2300, L504.0250, L503.0100, L500.2500, L501.5200, L100.0100 ####[facility] [address] [place], [address] Platelet mean volume (Bld) [Entitic vol] 9.9 fL Normal 6.2-12.0 [facility] Comment on above: Performed By: #### L 503.0300, L501.2300, L504.0250, L503.0100, L500.2500, L501.5200, L100.0100 ####[facility] [address] [place], [address] Platelets (Bld) [#/Vol] 347 10*3/uL Normal 150-450 [facility] Comment on above: Performed By: #### L 503.0300, L501.2300, L504.0250, L503.0100, L500.2500, L501.5200, L100.0100 ####[facility] [address] [place], [place], [address] RBC (Bld) [#/Vol] 4.45 10*6/uL Normal 4.2-5.4 [facility] Comment on above: Performed By: #### L 503.0300, L501.2300, L504.0250, L503.0100, L500.2500, L501.5200, L100.0100 ####[facility] [address] [place], [place], [id number] RDW SD 54.4 fl High 35.1-43.9 [facility] Comment on above: Performed By: #### L 503.0300, L501.2300, L504.0250, L503.0100, L500.2500, L501.5200, L100.0100 ####[facility] [address] [place], [place], [phone] WBC (Bld) [#/Vol] 13.8 10*3/uL High 4.4-11.0 [facility] Comment on above: Performed By: #### L 503.0300, L501.2300, L504.0250, L503.0100, L500.2500, L501.5200, L100.0100 ####[facility] [address] [place], [place], [id number] [facility] Tele[facility] (INTWS) BLESSING JACKSON I ([id number]) 1940 F Date Time Provider Department 04/18/25 JEANA GUERRA INTWS During your visit today, we recorded the following information about you: Sharon Hadley LPN 04/18/2025 1:55 PM Signed Patient Avinash calling was admitted to [facility] on 04/16, gagging and spitting up mucous, no pneumonia diagnosis. He said she is having thoracentesis done tomorrow to remove fluid from her lung. Jeana Guerra MD 04/19/2025 8:36 AM Signed Noted. Please set her up for hospital follow up. Jeana Asif MD, Amanda, RN 04/19/2025 11:10 AM Signed Pts called in and reports a provider had come into Pts room and had discussed wanting to start dialysis in the Pt. The Pt wanted to talk with Dr Guerra about this before proceeding. Pts didn't know how we could accommodate this. I told him I would send a message to the provider. I told him about phone issues and he will call back later today for providers reply. BASIL Ruiz Chitra, MD 04/19/2025 3:02 PM Signed Please call the family and confirm the numbers I can reach them on, as I will make a call before I leave office today Jeana Asif MD, Brittany L, MA 04/19/2025 3:24 PM Signed Spouse Avinash contact: [phone] is correct. Spouse will have phone on AND be waiting for call. RADHA Shoemaker Chitra, MD 04/19/2025 6:28 PM Signed Long conversation with family. And gave advice Jeana Asif MD Allergies As of Date: 04/18/2025 Noted Allergy Reaction LOVENOX (ENOXAPARIN SODIUM) 04/14/2012 2 - Rash 9 - Itching OXYCONTIN (OXYCODONE) 12/15/2007 1 - Mental Status Change 14 - Other: See Comments Comments: sx of a stroke -- disoriented PENICILLINS 12/15/2007 2 - Rash 14 - Other: See Comments Comments: epidermolysis CODEINE 12/15/2007 8 - GI Upset Date Reviewed: 03/04/2025 Reviewed by: Elizabeth Jackson MA - Fully Assessed Reason for Visit: Patient Update [1234] Prescriptions as of 04/22/2025 - simvastatin (ZOCOR) 20 mg tablet Take 1 tablet by mouth daily at bedtime. - lisinopril (ZESTRIL) 40 mg tablet Take 1 tablet by mouth once daily. - gabapentin (NEURONTIN) 300 mg capsule Take 1 capsule by mouth once daily. - levothyroxine (SYNTHROID) 100 mcg tablet Take 1 tablet by mouth once daily. - semaglutide (OZEMPIC) 0.25 mg or 0.5 mg (2 mg/3 mL) pen Inject 0.5 mg subcutaneously one time a week. - metFORMIN ER (GLUCOPHAGE XR) 500 mg 24 hr tablet Take 1 tablet by mouth daily with breakfast. - Cetirizine 10 mg cap Take by mouth as needed (allergies). - ALIGN PROBIOTIC RESISTANCE CAPSULE Take 1 capsule by mouth once daily. - metoprolol tartrate, short acting, (LOPRESSOR) 50 mg tablet Take 1 tablet by mouth two times a day. - dilTIAZem CD (CARDIZEM CD) 240 mg 24 hr capsule Take 1 capsule by mouth once daily. - apixaban (ELIQUIS) 5 mg tab(s) Take 1 tablet by mouth two times a day. - furosemide (LASIX) 40 mg tablet Take 3 tablets by mouth once daily. - azelastine-fluticasone (DYMISTA) 137-50 mcg/spray nasal spray Use 1 [place] in each nostril two times a day. - amLODIPine (NORVASC) 5 mg tablet Take 1 tablet by mouth two times a day. - pentoxifylline ER (TRENTAL) 400 mg CR tablet Take 1 tablet by mouth three times a day. - diosmin complex no.1 (VASCULERA) 630 mg tab Take 1 tablet by mouth once daily. - BIOTIN ORAL Take 5,000 mcg by mouth. - betamethasone dipropionate (DIPROSONE) 0.05 % cream Apply to rash on neck once or twice a day as needed. - mupirocin (BACTROBAN) 2 % ointment Apply 1 application to affected area twice daily. - blood sugar diagnostic (ONE TOUCH VERIO) test strip Test glucose 1x/daily, 250.00, insulin use: No - Lancets (ONE TOUCH DELICA) lancets Test blood sugar(s) 1x/daily. Dx: 250.00. Insulin: No - aspirin, enteric coated 81 mg EC tablet Take 81 mg by mouth once daily. - acetaminophen (TYLENOL) 500 mg tablet Take 1,000 mg by mouth every 6 hours as needed. - multivitamins(DAILY MULTIVITAMIN TAB) Take one(1) tablet daily. Problem List As Of Date 04/18/2025 Noted Resolved Essential hypertension [I10] Hypothyroidism [E03.9] DIABETES MELLITUS TYPE II-UNCOMPL [E11.9] 04/18/2015 Hyperlipidemia [E78.5] GENERAL OSTEOARTHROSIS [M15.9] Abnormal mammogram, unspecified [R92.8] 02/13/2009 08/25/2016 History of cancer of right breast [Z85.3] 04/03/2009 VENOUS INSUFFICIENCY [I87.2] 05/14/2009 08/25/2016 Abdominal pain, unspecified site [R10.9] 10/01/2011 08/25/2016 Left groin pain [R10.32] 11/04/2011 08/25/2016 Osteoarthrosis, unspecified whether generalized*02/06/2012 08/25/2016 Leg edema [R60.0] 03/28/2012 08/25/2016 Obesity, Class III, BMI 40-49.9 (morbid obesity*03/28/2012 02/14/2015 BMI 40.0-44.9, adult (HCC) [Z68.41] 02/21/2014 02/14/2015 Mo (more content not included)... Normal [facility] Consultation - Cardiologyon 04-18-2025 Consultation - Cardiology Normal [facility] Consultation - Nephrologyon 04-18-2025 Consultation - Nephrology Normal [facility] Legionella Antigen Urineon 0 04-18-2025 LEGU Normal [facility] Comment on above: Performed By: #### M 300.4500, M300.4600 ####[facility] [address] [place], [address] M100.019on 04-18-2025 M100.019 Negative Normal [facility] Comment on above: Performed By: #### M 100.019 ####[facility] [address] [place], [address] Magnesiumon 04-18-2025 Magnesium [Mass/Vol] 2.5 mg/dL High 1.5-2.2 [facility] Comment on above: Performed By: #### L 503.0300, L501.2300, L504.0250, L503.0100, L500.2500, L501.5200, L100.0100 ####[facility] [address] [place], [address] Partial Thromboplast Timeon 04-18-2025 aPTT Coag (Bld) [Time] 101.3 s Invalid Interpretation Code 24.1-36.2 [facility] Comment on above: Order Comment: Comme nts: Time sensitive Heparin drip Result Comment: CRIT ICAL VALUE CALLED TO [id number]/29/25 221 Sergio Pemberton.RESULTS READ BACK BY SAME. Performed By: #### L 300.4310 ####[facility] [address] [place], [address] aPTT Coag (Bld) [Time] 36.8 s High 24.1-36.2 [facility] Comment on above: Performed By: #### L 300.4310 ####[facility] [address] [place], [address] Phosphoruson 04-18-2025 Phosphate [Mass/Vol] 6.5 mg/dL High 2.7-4.5 [facility] Comment on above: Performed By: #### L 503.0300, L501.2300, L504.0250, L503.0100, L500.2500, L501.5200, L100.0100 ####[facility] [address] [place], [address] Protein+Creatinine Ratio,Uri neon 04-18-2025 PROT:CRE RATIO 965 mg/g CRE High 0-200 [facility] Comment on above: Performed By: #### L 501.0900 ####[facility] [address] [place], [address] Protein (U) [Mass/Vol] 76.7 mg/dL High 0.0-12.0 [facility] Comment on above: Performed By: #### L 501.0900 ####[facility] [address] [place], [address] UR CREAT 79.50 mg/dL Normal 28.00-217. 00 [facility] Comment on above: Performed By: #### L 501.0900 ####[facility] [address] [place], [address] Prothrombin Time w/INRon INR Coag (PPP) [Relative time] 2.5 {INR} Normal [facility] Comment on above: Performed By: #### L 300.3900 ####[facility] [address] [place], [address] PT Coag (PPP) [Time] 27.9 s High 11.7-14.9 [facility] Comment on above: Performed By: #### L 300.3900 ####[facility] [address] [place], [address] RESPIRATORY PANEL MOLECULARo n 04-18-2025 RP PANEL Normal [facility] Comment on above: Performed By: #### M 100.638 ####[facility] [address] [place], [address] Strep pneumoniae Antig(UR,CS F)on 04-18-2025 STPAG Normal [facility] Comment on above: Performed By: #### M 300.4500, M300.4600 ####[facility] [address] [place], [address] Basic Metabolic Profile (BMP )on 04-17-2025 BUN/CRE 30.0 RATIO High 10-20 [facility] Comment on above: Performed By: #### L 501.9985, L100.0100, L501.5200, L500.2500 ####[facility] [address] [place], [address] Calcium [Mass/Vol] 9.4 mg/dL Normal 7.6-11.0 [facility] Comment on above: Performed By: #### L 501.9985, L100.0100, L501.5200, L500.2500 ####[facility] [address] [place], [address] Chloride [Moles/Vol] 98 mmol/L Normal 98-108 [facility] Comment on above: Performed By: #### L 501.9985, L100.0100, L501.5200, L500.2500 ####[facility] [address] [place], [address] CO2 [Moles/Vol] 22.2 mmol/L Normal 21.0-32.0 [facility] Comment on above: Performed By: #### L 501.9985, L100.0100, L501.5200, L500.2500 ####[facility] [address] [place], [address] Creatinine [Mass/Vol] 2.62 mg/dL High 0.70-1.20 [facility] Comment on above: Performed By: #### L 501.9985, L100.0100, L501.5200, L500.2500 ####[facility] [address] [place], [address] ECRCL 16.15 ml/min Low 50-250 [facility] Comment on above: Performed By: #### L 501.9985, L100.0100, L501.5200, L500.2500 ####[facility] [address] [place], [address] GAP 18 High 5-15 [facility] Comment on above: Performed By: #### L 501.9985, L100.0100, L501.5200, L500.2500 ####[facility] [address] [place], [address] GFR/1.73 sq M.predicted among non-blacks MDRD (S/P/Bld) [Vol rate/Area] 17 mL/min/{1.73_m2} Low >60 [facility] Comment on above: Result Comment: mL/m in/1.73m2 CKD-EPI Creatinine Equation (2020) Performed By: #### L 501.9985, L100.0100, L501.5200, L500.2500 ####[facility] [address] [place], [address] Glucose [Mass/Vol] 173 mg/dL High 70-99 [facility] Comment on above: Performed By: #### L 501.9985, L100.0100, L501.5200, L500.2500 ####[facility] [address] [place], [address] Potassium [Moles/Vol] 4.9 mmol/L Normal 3.3-5.1 [facility] Comment on above: Performed By: #### L 501.9985, L100.0100, L501.5200, L500.2500 ####[facility] [address] [place], [address] Sodium [Moles/Vol] 138 mmol/L Normal 133-145 [facility] Comment on above: Performed By: #### L 501.9985, L100.0100, L501.5200, L500.2500 ####[facility] [address] [place], [address] Urea nitrogen [Mass/Vol] 79 mg/dL High 4-19 [facility] Comment on above: Performed By: #### L 501.9985, L100.0100, L501.5200, L500.2500 ####[facility] [address] [place], [address] Bedside Glucoseon 04-17-2025 FINGERSTICK GLU 205 mg/dL High 74-106 [facility] Comment on above: Result Comment: RUSSELL GEMENT OF PATIENT CARE PER NURSING PROTOCOL Performed By: #### L 501.080 ####[facility] [address] [place], [address] FINGERSTICK GLU 197 mg/dL High [address] [facility] Comment on above: Result Comment: RUSSELL GEMENT OF PATIENT CARE PER NURSING PROTOCOL Performed By: #### L 501.080 ####[facility] [address] [place], [address] FINGERSTICK GLU 174 mg/dL High -106 [facility] Comment on above: Result Comment: RUSSELL GEMENT OF PATIENT CARE PER NURSING PROTOCOL Performed By: #### L 501.080 ####[facility] [address] [place], [address] FINGERSTICK GLU 175 mg/dL High 74-106 [facility] Comment on above: Result Comment: RUSSELL GEMENT OF PATIENT CARE PER NURSING PROTOCOL Performed By: #### L 501.080 ####[facility] [address] [place], [address] CBC W/Diff, Automatedon 03-22 Absolute Lymph 0.60 X10 3/uL Low 0.83-4.51 [facility] Comment on above: Performed By: #### L 501.9985, L100.0100, L501.5200, L500.2500 ####[facility] [address] [place], [address] Absolute Neut 11.8 X10 3/uL High 2.0-7.7 [facility] Comment on above: Performed By: #### L 501.9985, L100.0100, L501.5200, L500.2500 ####[facility] [address] [place], [address] Basophils/100 WBC (Bld) 0.4 % Normal 0-1 [facility] Comment on above: Performed By: #### L 501.9985, L100.0100, L501.5200, L500.2500 ####[facility] [address] [place], [address] Eosinophils/100 WBC (Bld) 0.0 % Normal 0-5 [facility] Comment on above: Performed By: #### L 501.9985, L100.0100, L501.5200, L500.2500 ####[facility] [address] [place], [address] Erythrocyte distribution width (RBC) [Ratio] 16.8 % High 11.6-14.6 [facility] Comment on above: Performed By: #### L 501.9985, L100.0100, L501.5200, L500.2500 ####[facility] [address] [place], [address] Hematocrit (Bld) [Volume fraction] 41.3 % Normal 37-47 [facility] Comment on above: Performed By: #### L 501.9985, L100.0100, L501.5200, L500.2500 ####[facility] [address] [place], [address] Hemoglobin (Bld) [Mass/Vol] 13.0 g/dL Normal 12.0-15.0 [facility] Comment on above: Performed By: #### L 501.9985, L100.0100, L501.5200, L500.2500 ####[facility] [address] [place], [address] IG% 0.700 Normal 0.0-0.9 [facility] Comment on above: Result Comment: IG% - Immature Granulocytes (promyelocytes, myelocytes andmetamyelocytes) > 1% indicates that a LEFT SHIFT is Present. Performed By: #### L 501.9985, L100.0100, L501.5200, L500.2500 ####[facility] [address] [place], [address] Lymphocytes/100 WBC (Bld) 4.5 % Low 19-41 [facility] Comment on above: Performed By: #### L 501.9985, L100.0100, L501.5200, L500.2500 ####[facility] [address] [place], [address] MCH (RBC) [Entitic mass] 28.3 pg Normal 27.0-32.0 [facility] Comment on above: Performed By: #### L 501.9985, L100.0100, L501.5200, L500.2500 ####[facility] [address] [place], [address] MCHC (RBC) [Mass/Vol] 31.5 g/dL Low 32-36 [facility] Comment on above: Performed By: #### L 501.9985, L100.0100, L501.5200, L500.2500 ####[facility] [address] [place], [address] MCV (RBC) [Entitic vol] 90.0 fL Normal 81-99 [facility] Comment on above: Performed By: #### L 501.9985, L100.0100, L501.5200, L500.2500 ####[facility] [address] [place], [address] Monocytes/100 WBC (Bld) 6.7 % Normal 0-10 [facility] Comment on above: Performed By: #### L 501.9985, L100.0100, L501.5200, L500.2500 ####[facility] [address] [place], [address] Neutrophils/100 WBC (Bld) 87.7 % High 47-70 [facility] Comment on above: Performed By: #### L 501.9985, L100.0100, L501.5200, L500.2500 ####[facility] [address] [place], [address] Nucleated RBC (Bld) [#/Vol] 0 10*3/uL Normal 0-5 [facility] Comment on above: Performed By: #### L 501.9985, L100.0100, L501.5200, L500.2500 ####[facility] [address] [place], [address] Platelet mean volume (Bld) [Entitic vol] 10.4 fL Normal 6.2-12.0 [facility] Comment on above: Performed By: #### L 501.9985, L100.0100, L501.5200, L500.2500 ####[facility] [address] [place], [address] Platelets (Bld) [#/Vol] 365 10*3/uL Normal 150-450 [facility] Comment on above: Performed By: #### L 501.9985, L100.0100, L501.5200, L500.2500 ####[facility] [address] [place], [address] RBC (Bld) [#/Vol] 4.59 10*6/uL Normal 4.2-5.4 [facility] Comment on above: Performed By: #### L 501.9985, L100.0100, L501.5200, L500.2500 ####[facility] [address] [place], [address] RDW SD 55.6 fl High 35.1-43.9 [facility] Comment on above: Performed By: #### L 501.9985, L100.0100, L501.5200, L500.2500 ####[facility] [address] [place], [address] WBC (Bld) [#/Vol] 13.5 10*3/uL High 4.4-11.0 [facility] Comment on above: Performed By: #### L 501.9985, L100.0100, L501.5200, L500.2500 ####[facility] [address] [place], [address] Chest 1 View (Portable)on Chest 1 View (Portable) Normal [facility] Chest without Contraston Chest without Contrast Normal [facility] Gram Stainon 04-17-2025 GS Acceptable Specimen? Yes (<25 Epithelial cells per/lpf) Gram Stain 3+ Gram positive rods 2+ Gram negative rods 2+ Gram positive cocci 1+ Epithelial cells 1+ White Blood Cells Normal [facility] Comment on above: Performed By: #### M 100.2400, M100.2000 ####[facility] [address] [place], [address] Hemoglobin A1con 04-17-2025 HbA1c (Bld) [Mass fraction] 6.9 % High <=5.6 [facility] Comment on above: Result Comment: Norm al < 5.7 % Prediabetic 5.7 - 6.4 % Diabetic >or= 6.5 % Please note range changes. Performed By: #### L 501.9985, L100.0100, L501.5200, L500.2500 ####[facility] [address] [place], [address] Kidney and Bladderon 025 [address] Bl[address] Normal [facility] Magnesiumon 04-17-2025 Magnesium [Mass/Vol] 2.4 mg/dL High 1.5-2.2 [facility] Comment on above: Performed By: #### L 501.9985, L100.0100, L501.5200, L500.2500 ####[facility] [address] [place], [address] Thoracentesis W USon 025 Thoracentesis W US Normal [facility] Urea Nitrogen, Urineon 04-17 URINE UREA 301 mg/dL Normal NO RANGE EST. [facility] Comment on above: Performed By: #### L 502.0772 ####[facility] [address] [place], [address] 12 Lead EKGon 04-16-2025 12 Lead EKG Normal [facility] Absolute lymphocyte countOrd ered By: Nathan Castanon on 04-16-2025 Lymphocytes Auto (Unsp spec) [#/Vol] 0.77 10*3/uL Low 0.83-4.51 [facility] Absolute neutrophil countOrd ered By: [facility] on 04-16-2025 Neutrophils (Bld) [#/Vol] 11.4 10*3/uL High 2.0-7.7 [facility] Activated partial thrombopla stin time (aPTT) in platelet poor plasma by coagulation aOrdered By: Nathan Castanon on 04-16-2025 aPTT Coag (PPP) [Time] 36.3 s High 24.1-36.2 [facility] Anion gap in Serum or Plasma Ordered By: Nathanroger Castanon on 04-16-2025 Anion gap [Moles/Vol] 19 mmol/L High 5-15 [facility] Automated lymphocyte count a s percentage of total leukocytesOrdered By: Nathan Castanon on 04-16-2025 Lymphocytes/100 WBC Auto (Unsp spec) 5.7 % Low 19-41 [facility] BUN/creatinine ratioOrdered By: Burket MarlonMagaly on 04-16-2025 Urea nitrogen/Creatinine [Mass ratio] 28.7 mg/mg High 10-20 [facility] Basic Metabolic Profile (BMP )on 04-16-2025 BUN/CRE 28.7 RATIO High 10-20 [facility] Comment on above: Performed By: #### L 300.3900, L500.2500, L300.4310, L501.4021, L100.0100, L503.7505 ####[facility] [address] [place], [address] Calcium [Mass/Vol] 9.5 mg/dL Normal 7.6-11.0 [facility] Comment on above: Performed By: #### L 300.3900, L500.2500, L300.4310, L501.4021, L100.0100, L503.7505 ####[facility] [address] [place], [address] Chloride [Moles/Vol] 98 mmol/L Normal 98-108 [facility] Comment on above: Performed By: #### L 300.3900, L500.2500, L300.4310, L501.4021, L100.0100, L503.7505 ####[facility] [address] [place], [address] CO2 [Moles/Vol] 19.6 mmol/L Low 21.0-32.0 [facility] Comment on above: Performed By: #### L 300.3900, L500.2500, L300.4310, L501.4021, L100.0100, L503.7505 ####[facility] [address] [place], [address] Creatinine [Mass/Vol] 2.31 mg/dL High 0.70-1.20 [facility] Comment on above: Performed By: #### L 300.3900, L500.2500, L300.4310, L501.4021, L100.0100, L503.7505 ####[facility] [address] [place], [address] ECRCL 18.55 ml/min Low 50-250 [facility] Comment on above: Performed By: #### L 300.3900, L500.2500, L300.4310, L501.4021, L100.0100, L503.7505 ####[facility] [address] [place], [address] GAP 19 High 5-15 [facility] Comment on above: Performed By: #### L 300.3900, L500.2500, L300.4310, L501.4021, L100.0100, L503.7505 ####[facility] [address] [place], [address] GFR/1.73 sq M.predicted among non-blacks MDRD (S/P/Bld) [Vol rate/Area] 20 mL/min/{1.73_m2} Low >60 [facility] Comment on above: Result Comment: mL/m in/1.73m2 CKD-EPI Creatinine Equation (2020) Performed By: #### L 300.3900, L500.2500, L300.4310, L501.4021, L100.0100, L503.7505 ####[facility] [address] [place], [address] Glucose [Mass/Vol] 157 mg/dL High 70-99 [facility] Comment on above: Performed By: #### L 300.3900, L500.2500, L300.4310, L501.4021, L100.0100, L503.7505 ####[facility] [address] [place], [address] Potassium [Moles/Vol] 5.2 mmol/L High 3.3-5.1 [facility] Comment on above: Result Comment: Hemo lysis present, Results??could be affected.?? Performed By: #### L 300.3900, L500.2500, L300.4310, L501.4021, L100.0100, L503.7505 ####[facility] [address] [place], [address] Sodium [Moles/Vol] 137 mmol/L Normal 133-145 [facility] Comment on above: Performed By: #### L 300.3900, L500.2500, L300.4310, L501.4021, L100.0100, L503.7505 ####[facility] [address] [place], [address] Urea nitrogen [Mass/Vol] 66 mg/dL High 4-19 [facility] Comment on above: Performed By: #### L 300.3900, L500.2500, L300.4310, L501.4021, L100.0100, L503.7505 ####[facility] [address] [place], [address] Basophil percentageOrdered B y: Nathan Castanon on 04-16-2025 Basophils/100 WBC (Bld) 0.4 % 0-1 [facility] Bedside Glucoseon 04-16-2025 FINGERSTICK GLU 158 mg/dL High 74-106 [facility] Comment on above: Result Comment: RUSSELL GEMENT OF PATIENT CARE PER NURSING PROTOCOL Performed By: #### L 501.080 ####[facility] [address] [place], [address] FINGERSTICK GLU 160 mg/dL High 74-106 [facility] Comment on above: Result Comment: RUSSELL GEMENT OF PATIENT CARE PER NURSING PROTOCOL Performed By: #### L 501.080 ####[facility] [address] [place], [address] CBC W/Diff, Automatedon 052 Absolute Lymph 0.77 X10 3/uL Low 0.83-4.51 [facility] Comment on above: Performed By: #### L 300.3900, L500.2500, L300.4310, L501.4021, L100.0100, L503.7505 ####[facility] [address] [place], [address] Absolute Neut 11.4 X10 3/uL High 2.0-7.7 [facility] Comment on above: Performed By: #### L 300.3900, L500.2500, L300.4310, L501.4021, L100.0100, L503.7505 ####[facility] [address] [place], [address] Basophils/100 WBC (Bld) 0.4 % Normal 0-1 [facility] Comment on above: Performed By: #### L 300.3900, L500.2500, L300.4310, L501.4021, L100.0100, L503.7505 ####[facility] [address] [place], [address] Eosinophils/100 WBC (Bld) 0.1 % Normal 0-5 [facility] Comment on above: Performed By: #### L 300.3900, L500.2500, L300.4310, L501.4021, L100.0100, L503.7505 ####[facility] [address] [place], [address] Erythrocyte distribution width (RBC) [Ratio] 16.8 % High 11.6-14.6 [facility] Comment on above: Performed By: #### L 300.3900, L500.2500, L300.4310, L501.4021, L100.0100, L503.7505 ####[facility] [address] [place], [address] Hematocrit (Bld) [Volume fraction] 42.8 % Normal 37-47 [facility] Comment on above: Performed By: #### L 300.3900, L500.2500, L300.4310, L501.4021, L100.0100, L503.7505 ####[facility] [address] [place], [address] Hemoglobin (Bld) [Mass/Vol] 13.3 g/dL Normal 12.0-15.0 [facility] Comment on above: Performed By: #### L 300.3900, L500.2500, L300.4310, L501.4021, L100.0100, L503.7505 ####[facility] [address] [place], [address] IG% 0.300 Normal 0.0-0.9 [facility] Comment on above: Result Comment: IG% - Immature Granulocytes (promyelocytes, myelocytes andmetamyelocytes) > 1% indicates that a LEFT SHIFT is Present. Performed By: #### L 300.3900, L500.2500, L300.4310, L501.4021, L100.0100, L503.7505 ####[facility] [address] [place], [address] Lymphocytes/100 WBC (Bld) 5.7 % Low 19-41 [facility] Comment on above: Performed By: #### L 300.3900, L500.2500, L300.4310, L501.4021, L100.0100, L503.7505 ####[facility] [address] [place], [address] MCH (RBC) [Entitic mass] 28.1 pg Normal 27.0-32.0 [facility] Comment on above: Performed By: #### L 300.3900, L500.2500, L300.4310, L501.4021, L100.0100, L503.7505 ####[facility] [address] [place], [address] MCHC (RBC) [Mass/Vol] 31.1 g/dL Low 32-36 [facility] Comment on above: Performed By: #### L 300.3900, L500.2500, L300.4310, L501.4021, L100.0100, L503.7505 ####[facility] [address] [place], [address] MCV (RBC) [Entitic vol] 90.5 fL Normal 81-99 [facility] Comment on above: Performed By: #### L 300.3900, L500.2500, L300.4310, L501.4021, L100.0100, L503.7505 ####[facility] [address] [place], [address] Monocytes/100 WBC (Bld) 9.2 % Normal 0-10 [facility] Comment on above: Performed By: #### L 300.3900, L500.2500, L300.4310, L501.4021, L100.0100, L503.7505 ####[facility] [address] [place], [address] Neutrophils/100 WBC (Bld) 84.3 % High 47-70 [facility] Comment on above: Performed By: #### L 300.3900, L500.2500, L300.4310, L501.4021, L100.0100, L503.7505 ####[facility] [address] [place], [address] Nucleated RBC (Bld) [#/Vol] 0 10*3/uL Normal 0-5 [facility] Comment on above: Performed By: #### L 300.3900, L500.2500, L300.4310, L501.4021, L100.0100, L503.7505 ####[facility] [address] [place], [address] Platelet mean volume (Bld) [Entitic vol] 10.2 fL Normal 6.2-12.0 [facility] Comment on above: Performed By: #### L 300.3900, L500.2500, L300.4310, L501.4021, L100.0100, L503.7505 ####[facility] [address] [place], [address] Platelets (Bld) [#/Vol] 322 10*3/uL Normal 150-450 [facility] Comment on above: Performed By: #### L 300.3900, L500.2500, L300.4310, L501.4021, L100.0100, L503.7505 ####[facility] [address] [place], [address] RBC (Bld) [#/Vol] 4.73 10*6/uL Normal 4.2-5.4 [facility] Comment on above: Performed By: #### L 300.3900, L500.2500, L300.4310, L501.4021, L100.0100, L503.7505 ####[facility] [address] [place], [address] RDW SD 56.1 fl High 35.1-43.9 [facility] Comment on above: Performed By: #### L 300.3900, L500.2500, L300.4310, L501.4021, L100.0100, L503.7505 ####[facility] [address] [place], [address] WBC (Bld) [#/Vol] 13.5 10*3/uL High 4.4-11.0 [facility] Comment on above: Performed By: #### L 300.3900, L500.2500, L300.4310, L501.4021, L100.0100, L503.7505 ####[facility] [address] [place], [address] Carbon dioxide, total [Moles /volume] in Central venous bloodOrdered By: Nathan Castanon on 04-16-2025 CO2 [Moles/Vol] 19.6 mmol/L Low 21.0-32.0 [facility] Chest PA and Lateralon 04-16 Chest PA and Lateral Normal [facility] Chloride assayOrdered By: Rasta Castanon on 04-16-2025 Chloride [Moles/Vol] 98 mmol/L 98-108 [facility] Creatinine, Urineon 04-16-20 URINE CREAT 96.50 mg/dL Normal 28.00-217. 00 [facility] Comment on above: Performed By: #### L 502.0300 ####[facility] [address] [place], [address] Echo Completeon 04-16-2025 Echo Complete Normal [facility] Emergency Department Summary on 04-16-2025 Emergency Department Summary Normal [facility] Eosinophil percentageOrdered By: Nathan Castanon on 04-16-2025 Eosinophils/100 WBC (Bld) 0.1 % 0-5 [facility] Erythrocyte distribution wid th ratioOrdered By: Nathanroger Castanon on 04-16-2025 Erythrocyte distribution width (RBC) [Ratio] 16.8 % High 11.6-14.6 [facility] Erythrocyte distribution wid th standard deviationOrdered By: [facility] on 04-16-2025 Erythrocyte distribution width (RBC) [Ratio] 56.1 fl High 35.1-43.9 [facility] Glomerular filtration rate ( GFR) estimation/1.73 sq m using serum, plasma, or whole bOrdered By: Nathan Castanon on 04-16-2025 GFR/1.73 sq M.predicted among non-blacks MDRD (S/P/Bld) [Vol rate/Area] 20 mL/min/{1.73_m2} Low >60 [facility] Comment on above: mL/min/1.73m2 CKD-EP I Creatinine Equation (2020) H AND P Exam - Hospitaliston 04-16-2025 H&P Exam - Hospitalist Normal [facility] Hematocrit Auto (Bld) [Volum e fraction]Ordered By: Nathan Castanon on 04-16-2025 Hematocrit (Bld) [Volume fraction] 42.8 % 37-47 [facility] Hemoglobin measurementOrdere d By: Nathan Castanon on 04-16-2025 Hemoglobin (Bld) [Mass/Vol] 13.3 g/dL 12.0-15.0 [facility] Immature granulocytes/100 WB C Auto (Bld)Ordered By: Nathan Castanon on 04-16-2025 Immature granulocytes/100 WBC (Bld) 0.300 % 0.0-0.9 [facility] Comment on above: IG% - Immature Granu locytes (promyelocytes, myelocytes and metamyelocytes) > 1% indicates that a LEFT SHIFT is Present. International normalized rat io (INR) calculationOrdered By: Nathan Castanon on 04-16-2025 INR Coag (Bld) [Relative time] 3.4 {INR} [facility] L499.0042on 04-16-2025 Trop T High Sen 33 ng/L High <=14 [facility] Comment on above: Performed By: #### L 499.0042 ####[facility] [address] [facility], [address] L501.4021on 04-16-2025 Trop T High Sen 46 ng/L High <=14 [facility] Comment on above: Performed By: #### L 300.3900, L500.2500, L300.4310, L501.4021, L100.0100, L503.7505 ####[facility] [address] [facility], [address] L503.7505on 04-16-2025 Natriuretic peptide B (Bld) [Mass/Vol] 4839 pg/mL High <=1800 [facility] Comment on above: Result Comment: Hear t Failure Unlikely: < 300 pg/mLHeart Failure Likely< 50 Years: > 450 pg/mL50-75 Years: > 900 pg/mL>75 Years: > 1800 pg/mL Performed By: #### L 300.3900, L500.2500, L300.4310, L501.4021, L100.0100, L503.7505 ####[facility] [address] [facility], [address] MCV (mean corpuscular volume ) determinationOrdered By: Nathan Castanon on 04-16-2025 MCV (RBC) [Entitic vol] 90.5 fL 81-99 [facility] Mean corpuscular hemoglobin (MCH) determinationOrdered By: Nathan Castanon on 04-16-2025 MCH (RBC) [Entitic mass] 28.1 pg 27.0-32.0 [facility] Mean corpuscular hemoglobin concentration (MCHC) determinationOrdered By: Nathan Castanon on 04-16-2025 MCHC (RBC) [Mass/Vol] 31.1 g/dL Low 32-36 [facility] Mean platelet volume determi nationOrdered By: Nathan Castanon on 04-16-2025 Platelet mean volume (Bld) [Entitic vol] 10.2 fL 6.2-12.0 [facility] Monocyte percentageOrdered B y: Nathan Castanon on 04-16-2025 Monocytes/100 WBC (Bld) 9.2 % 0-10 [facility] Natriuretic peptide.B prohor courtney N-Terminal [Mass/volume] in Serum or PlasmaOrdered By: Nathan Castanon on 04-16-2025 Natriuretic peptide.B prohormone N-Terminal [Mass/Vol] 4839 pg/mL High <1800 [facility] Comment on above: Heart Failure Unlike ly: < 300 pg/mLHeart Failure Likely< 50 Years: > 450 pg/mL50-75 Years: > 900 pg/mL>75 Years: > 1800 pg/mL Neutrophil percentageOrdered By: Nathan Castanon on 04-16-2025 Neutrophils/100 WBC (Bld) 84.3 % High 47-70 [facility] Nucleated red blood cell per centageOrdered By: Nathanroger Castanon on 04-16-2025 Nucleated RBC/100 WBC (Bld) [Ratio] 0 % 0-5 [facility] Partial Thromboplast Timeon 04-16-2025 aPTT Coag (Bld) [Time] 36.3 s High 24.1-36.2 [facility] Comment on above: Performed By: #### L 300.3900, L500.2500, L300.4310, L501.4021, L100.0100, L503.7505 ####[facility] [address] [place], [place], [id number] Platelet countOrdered By: Rasta Castanon on 04-16-2025 Platelets (Bld) [#/Vol] 322 10*3/uL 150-450 [facility] Potassium measurement (mass/ volume)Ordered By: Nathan Castanon on 04-16-2025 Potassium (Unsp spec) [Mass/Vol] 5.2 mmol/L High 3.3-5.1 [facility] Comment on above: Hemolysis present, R esults could be affected. Prothrombin Time w/INRon INR Coag (PPP) [Relative time] 3.4 {INR} Normal [facility] Comment on above: Performed By: #### L 300.3900, L500.2500, L300.4310, L501.4021, L100.0100, L503.7505 ####[facility] [address] [place], [place], [phone] PT Coag (PPP) [Time] 34.7 s High 11.7-14.9 [facility] Comment on above: Performed By: #### L 300.3900, L500.2500, L300.4310, L501.4021, L100.0100, L503.7505 ####[facility] [address] [place], [place], [id number] Prothrombin timeOrdered By: Nathan Castanon on 04-16-2025 PT Coag (PPP) [Time] 34.7 s High 11.7-14.9 [facility] RBC Auto (Bld) [#/Vol]Ordere d By: Nathan Castanon on 04-16-2025 RBC (Bld) [#/Vol] 4.73 10*6/uL 4.2-5.4 [facility] Serum creatinine measurement (mass/volume)Ordered By: Nathan Castanon on 04-16-2025 Creatinine [Mass/Vol] 2.31 mg/dL High 0.70-1.20 [facility] Serum glucose measurement (m ass/volume)Ordered By: Nathan Castanon on 04-16-2025 Glucose [Mass/Vol] 157 mg/dL High 70-99 [facility] Serum or plasma calcium allan urement (mass/volume)Ordered By: Nathan Mckenzie on 04-16-2025 Calcium [Mass/Vol] 9.5 mg/dL 7.6-11.0 [facility] Serum or plasma urea nitroge n measurement (mass/volume)Ordered By: Nathan Castanon on 04-16-2025 Urea nitrogen [Mass/Vol] 66 mg/dL High 4-19 [facility] Sodium levelOrdered By: Neal Castanon on 04-16-2025 Sodium [Moles/Vol] 137 mmol/L 133-145 [facility] Troponin T.cardiac [Mass/vol ume] in Serum or Plasma by High sensitivity methodOrdered By: Nathan Castanon on 04-16-2025 Troponin T.cardiac High sensitivity method [Mass/Vol] 46 ng/L High <14 [facility] Urinalysis, Completeon 04-16 EPI,SQUAMOUS 0-5 SEEN Normal 5-10 [facility] Comment on above: Order Comment: SUMAN CTOR TO SPECIFY Performed By: #### L 400.0001 ####[facility] [address] [place], [place], [id number] RBC 0-5 SEEN Normal 0-5 [facility] Comment on above: Order Comment: SUMAN CTOR TO SPECIFY Performed By: #### L 400.0001 ####[facility] [address] [place], [place], [id number] WBC 5-10 SEEN Normal 0-5 [facility] Comment on above: Order Comment: SUMAN CTOR TO SPECIFY Performed By: #### L 400.0001 ####[facility] [address] [place], [address] BACTERIA 0 SEEN Normal None Seen [facility] Comment on above: Order Comment: SUMAN CTOR TO SPECIFY Performed By: #### L 400.0001 ####[facility] [address] [place], [address] Mucus Ql (Urine sed) 0 SEEN Normal [facility] Comment on above: Order Comment: SUMAN CTOR TO SPECIFY Performed By: #### L 400.0001 ####[facility] [address] [place], [address] White blood cell (WBC) count Ordered By: Nathan Castanon on 04-16-2025 WBC (Bld) [#/Vol] 13.5 10*3/uL High 4.4-11.0 [facility] CNOVon 03-04-2025 CNOV Office Visit (INTMWS ) BLESSING JACKSON I ([id number]) 1940 F Date Time Provider Department 03/04/25 9:40 AM JEANA GUERRA INTMWS During your visit today, we recorded the following information about you: Pulse Respiration Blood pressure Weight 92/minute 16/minute 135/87 86.4 kg Jeana Guerra MD 03/04/2025 10:37 AM Signed We discussed your thyroid: - Your TSH level is slightly elevated at 4.4. This may be due to missed doses of levothyroxine while you were in the hospital. - To address this, take a double dose of levothyroxine for 1-2 days over the next week to make up for any missed doses. - Moving forward, if you ever miss a dose of levothyroxine, you can double the dose the next day to catch up. We discussed your medications: - Restart lisinopril to help manage your blood pressure. This prescription has been sent to [facility]. - Continue taking metformin, but reduce the dose to 500 mg once daily with breakfast. This adjustment is to avoid low blood sugar levels, which can be more harmful at your age. - Continue taking gabapentin, levothyroxine, and semaglutide (Ozempic). Refills for these medications have been sent to [facility]. - Your A1c is currently 6.4, which is lower than the target range for your age (7.0-7.5). If you experience low blood sugar, fatigue, or dizziness, please let me know. We discussed your Lasix (furosemide): - You are currently taking 1 pill daily. To see if we can reduce the dose, cut the pill in half and take half a pill daily for one week. - Monitor your weight daily in the morning. If your weight remains stable, you can continue with the reduced dose. - If you gain 5-6 pounds in a week, return to the full dose of 1 pill daily. - If you have a few days of eating salty foods and notice weight gain, you can temporarily double the dose for those days and then return to the lower dose. We discussed your atrial fibrillation (AFib): - The urban renewal manager has recommended continuing with your current medications rather than pursuing cardioversion (a procedure to restore normal heart rhythm). - Continue taking Eliquis (apixaban) as prescribed to reduce your risk of blood clots and stroke. - If you decide to get an Apple Watch, it can be helpful for monitoring your heart rate and detecting falls. Set the alerts to notify you only if your heart rate exceeds 100 beats per minute to avoid unnecessary alarms. We discussed your diet and potassium: - You can continue eating a small amount of grapes to help maintain your potassium levels, as recommended in the hospital. - Avoid consuming too many carbohydrates at once. Aim for balanced meals with protein, complex carbohydrates, vegetables, and a small portion of fruit. We discussed your summer plans: - There is no specific medical reason to avoid traveling to your summer home. However, ensure you are aware of the nearest hospital and have a plan in place for emergencies. Follow-up: - Monitor your weight daily and let me know if you notice significant changes. - Contact me if you experience low blood sugar, dizziness, or fatigue, or if you have any concerns about your medications or symptoms. - Schedule a follow-up appointment as needed. All prescriptions have been sent to [facility]. Jeana Guerra MD 03/04/2025 1:09 PM Signed Reason for Visit Follow up PHIL Madrigal is a 84-year-old female with a history of hypothyroidism, atrial fibrillation, and type 2 diabetes mellitus, presenting for follow-up. Kaitlin reports a recent TSH level of 4.4 ?IU/mL. She denies missing any doses of levothyroxine, except during a recent 3-day hospitalization where she was not administered her usual medications orally. She resumed her medication regimen immediately upon discharge. She inquires about the possibility of taking a double dose of levothyroxine to normalize her TSH levels. She also reports a recent change in her diabetes management, switching from Victoza to Ozempic within the last month, and denies any adverse effects from this change. Her current HbA1c is 6.4%. She is taking metformin 500 mg twice daily and denies experiencing hypoglycemia. Kaitlin notes a decrease in energy levels, which she attributes to her atrial fibrillation and possibly to metoprolol. She is currently not on lisinopril and inquires about restarting it. She monitors her blood pressure and heart rate at home three times a week, consistently noting atrial fibrillation. She denies any symptoms associated with atrial fibrillation, such as palpitations, dizziness, or lightheadedness. She inquires about the utility of an Apple Watch for monitoring her condition. She is currently taking Lasix once daily and inquires about the necessity of continuing this medication indefinitely. She occasionally adjusts the timing of her Lasix dose to accommo (more content not included)... Normal [facility] CNOVon 03-01-2025 CNOV Office Visit (PODIWS ) BLESSING JACKSON I ([id number]) 1940 F Date Time Provider Department 03/01/25 3:00 PM MIRANDA DE PETE During your visit today, we recorded the following information about you: Miranda De 03/01/2025 2:58 PM Signed Diabetes Foot Care Instructions When you have diabetes, proper foot care is very important. Poor foot care may lead to amputation of a foot or leg. As a person with diabetes, you are more vulnerable to foot problems, because diabetes can damage your nerves and reduce blood flow to your feet. Here are some diabetes foot care tips to follow: Wash and Dry Your Feet Daily Use mild soaps Use warm water Pat your skin dry; do not rub. Thoroughly dry your feet. After washing, use lotion on your feet to prevent cracking. Do not put lotion between your toes. Examine Your Feet Each Day Check the tops and bottoms of your feet. Have someone else look at your feet if you cannot see them. Check for dry, cracked skin. Look for blisters, cuts, scratches, or other sores. Check for redness, increased warmth, or tenderness when touching any area of your feet. Check for ingrown toenails, corns, and calluses. If you get a blister or sore from your shoes, do not pop it. Apply a bandage and wear a different pair of shoes. Take Care of Your Toenails Cut toenails after bathing, when they are soft. Cut toenails straight across and smooth with a nail file. Avoid cutting into the corners of toes. Do not cut cuticles. If you have neuropathy (or decreased sensation in your feet) a events director should always cut your toenails. Be Careful When Exercising Walk and exercise in comfortable shoes. Do not exercise when you have open sores on your feet. Protect Your Feet With Shoes and Socks Never go barefoot. Always protect your feet by wearing shoes or hard-soled slippers or footwear. Avoid shoes with high heels and pointed toes. Avoid shoes that expose your toes or heels (such as open-toed shoes or sandals). These types of shoes increase your risk for injury and potential infections. Try on new footwear with the type of socks you usually wear. Do not wear new shoes for more than an hour at a time. Change your socks daily. Look and feel inside your shoes before putting them on to make sure there are no foreign objects or rough areas. Avoid tight socks. Wear natural-fiber socks (cotton, wool, or a cotton-wool blend). Wear special shoes if your health care provider recommends them. Wear shoes/boots that will protect your feet from various weather conditions (cold, moisture, etc.). Make sure your shoes fit properly. If you have neuropathy (nerve damage), you may not notice that your shoes are too tight. Perform the footwear test described below. Footwear Test Use this simple test to see if your shoes fit correctly: Stand on a piece of paper. (Make sure you are standing and not sitting, because your foot changes shape when you stand.) Trace the outline of your foot. Trace the outline of your shoe. Compare the tracings: Is the shoe too narrow? Is your foot crammed into the shoe? The shoe should be at least 1/2 inch longer than your longest toe and as wide as your foot. Proper Shoe Choices The following types of shoes are best for people with diabetes Closed toes and heels Leather uppers without a seam inside At least 1/2 inch extra space at the end of your longest toe Inside of shoe should be soft with no rough areas Outer sole should be made of stiff material Shoes should be at least as wide as your feet Tips for Foot Care in Diabetes Don't wait to treat a minor foot problem if you have diabetes. Follow your health care provider's guidelines and first aid guidelines. Report foot injuries and infections to your health care provider immediately. Check water temperature with your elbow, not your foot. Do not use a heating pad on your feet. Do not cross your legs. Do not self-treat your corns, calluses, or other foot problems. Go to your health care provider or events director to treat these conditions. Miranda De 03/01/2025 3:11 PM Signed Last saw pcp: 01/08/25 Subjective: Patient presents to clinic c/o painful toenails. They state that the nails are especially painful with shoe gear and pressure. Patient states that nails right hallux are painful. Patient admits to being diabetic. No other pedal complaints at this time. Patient states no change in medications or medical history since last visit. Objective: Patient presents to clinic ambulating in [facility] Vasc: DP and PT pulses are faintly palpable bilateral due to swelling. CFT is less than 5 seconds bilateral. Skin temperature is warm to cool proximal to distal bilateral. There is moderate edema or varicosities noted. Neuro: Protective sensation is decreased to the foot and toes when tested wit (more content not included)... Normal [facility] CBC panel Auto (Bld)on 02-27 Erythrocyte distribution width (RBC) [Ratio] 16.6 % High 11.5-15.0 [facility] Comment on above: Order Comment: Speci men Type: BLOOD SPECIMENOrdering Facility: [facility] Address: [address] [place] [address] Performed By: #### 5 8410-2 ####[facility] LABIA [id number] [place] [address] [place] Hematocrit (Bld) [Volume fraction] 42.5 % Normal 36.0-46.0 [facility] Comment on above: Order Comment: Speci men Type: BLOOD SPECIMENOrdering Facility: [facility] Address: [address] [place] [address] Performed By: #### 5 8410-2 ####[facility] LABIA [id number] [place] [address] [place] Hemoglobin (Bld) [Mass/Vol] 12.9 g/dL Normal 11.5-15.5 [facility] Comment on above: Order Comment: Speci men Type: BLOOD SPECIMENOrdering Facility: [facility] Address: [address] [place] [address] Performed By: #### 5 8410-2 ####[facility] LABIA [id number] [place] [address] [place] MCH (RBC) [Entitic mass] 27.8 pg Normal 26.0-34.0 [facility] Comment on above: Order Comment: Speci men Type: BLOOD SPECIMENOrdering Facility: [facility] Address: [address] [place], [place] [address] Performed By: #### 5 8410-2 ####[facility] LABCLIA [id number] [place] [address] [place] MCHC (RBC) [Mass/Vol] 30.4 g/dL Low 30.5-36.0 [facility] Comment on above: Order Comment: Speci men Type: BLOOD SPECIMENOrdering Facility: [facility] Address: [address] [place] [address] Performed By: #### 5 8410-2 ####[facility] LABIA [id number] [place] [address] [place] MCV (RBC) [Entitic vol] 91.6 fL Normal 80.0-100.0 [facility] Comment on above: Order Comment: Speci men Type: BLOOD SPECIMENOrdering Facility: [facility] Address: [address] [place] [address] Performed By: #### 5 8410-2 ####[facility] LABIA [id number] [place] [address] [place] Nucleated RBC (Bld) [#/Vol] 10*3/uL Normal <0.01 [facility] Comment on above: Order Comment: Speci men Type: BLOOD SPECIMENOrdering Facility: [facility] Address: [address] [place] [address] Performed By: #### 5 8410-2 ####[facility] LABIA [id number] [place] [address] [place] Platelet mean volume (Bld) [Entitic vol] 11.4 fL Normal 9.0-12.7 [facility] Comment on above: Order Comment: Speci men Type: BLOOD SPECIMENOrdering Facility: [facility] Address: [address] [place] [address] Performed By: #### 5 8410-2 ####[facility] LABIA [id number] [address] [address] [place] Platelets (Bld) [#/Vol] 269 10*3/uL Normal 150-400 [facility] Comment on above: Order Comment: Speci men Type: BLOOD SPECIMENOrdering Facility: [facility] Address: [address] [place] [address] Performed By: #### 5 8410-2 ####[facility] LABIA [id number] [place] [address] [place] RBC (Bld) [#/Vol] 4.64 10*6/uL Normal 3.90-5.20 [facility] Comment on above: Order Comment: Speci men Type: BLOOD SPECIMENOrdering Facility: [facility] Address: [address] [place] [address] Performed By: #### 5 8410-2 ####[facility] LABCLIA [id number] [place] [address] [place] WBC (Bld) [#/Vol] 7.64 10*3/uL Normal 3.70-11.00 [facility] Comment on above: Order Comment: Speci men Type: BLOOD SPECIMENOrdering Facility: [facility] Address: [address] [place] [address] Performed By: #### 5 8410-2 ####[facility] LABIA [id number] [place] [address] [place] Comprehensive metabolic 2000 panelon 02-27-2025 Albumin [Mass/Vol] 4.0 g/dL Normal 3.9-4.[address] [facility] Comment on above: Order Comment: Speci men Type: BLOOD SPECIMENOrdering Facility: [facility] Address: [address] [place] [address] Performed By: #### 2 4323-8, 96865-5, 22631-1, 3016-3 ####[facility] LABCLIA [id number] [place] [address] [place] ALP [Catalytic activity/Vol] 177 U/L High 34-123 [facility] Comment on above: Order Comment: Speci men Type: BLOOD SPECIMENOrdering Facility: [facility] Address: [address] [place] [address] Performed By: #### 2 4323-8, 44049-9, 93131-1, 3016-3 ####[facility] LABCLIA [id number] [place] [address] [place] ALT [Catalytic activity/Vol] 25 U/L Normal 7-38 [facility] Comment on above: Order Comment: Speci men Type: BLOOD SPECIMENOrdering Facility: [facility] Address: [address] [place] [address] Performed By: #### 2 4323-8, 81858-3, 74237-5, 3016-3 ####[facility] LABCLIA [id number] [place] [address] [place] Anion gap [Moles/Vol] 11 mmol/L Normal 8-15 [facility] Comment on above: Order Comment: Speci men Type: BLOOD SPECIMENOrdering Facility: [facility] Address: [address] [place] [address] Performed By: #### 2 4323-8, 74254-4, 59476-8, 3016-3 ####[facility] LABIA [id number] [place] [address] [place] AST [Catalytic activity/Vol] 28 U/L Normal 13-35 [facility] Comment on above: Order Comment: Speci men Type: BLOOD SPECIMENOrdering Facility: [facility] Address: [address] [place] [address] Performed By: #### 2 4323-8, 56634-1, 11533-7, 3016-3 ####[facility] LABCLIA [id number] [place] [address] [place] Bilirubin [Mass/Vol] 0.4 mg/dL Normal 0.2-1.3 [facility] Comment on above: Order Comment: Speci men Type: BLOOD SPECIMENOrdering Facility: [facility] Address: [address] [place] [address] Performed By: #### 2 4323-8, 56605-9, 80778-8, 3016-3 ####[facility] LABCLIA [id number] [facility] [address] [address] [place] Calcium [Mass/Vol] 9.9 mg/dL Normal 8.5-10.[address] [facility] Comment on above: Order Comment: Speci men Type: BLOOD SPECIMENOrdering Facility: [facility] Address: [address] [place] [address] Performed By: #### 2 4323-8, 95273-7, 77378-5, 3016-3 ####[facility] LABCLIA [id number] [place] [address] [place] Chloride [Moles/Vol] 100 mmol/L Normal 98-107 [facility] Comment on above: Order Comment: Speci men Type: BLOOD SPECIMENOrdering Facility: [facility] Address: [address] [place] [address] Performed By: #### 2 4323-8, 37160-0, 79201-5, 3016-3 ####[facility] LABCLIA [id number] [place] [address] [place] CO2 [Moles/Vol] 30 mmol/L Normal 22-30 [facility] Comment on above: Order Comment: Speci men Type: BLOOD SPECIMENOrdering Facility: [facility] Address: [address] [place] [address] Performed By: #### 2 4323-8, 72504-5, 32481-2, 3016-3 ####[facility] LABCLIA [id number] [facility] [address] [place] [address] [place] Creatinine [Mass/Vol] 1.11 mg/dL High 0.58-0.96 [facility] Comment on above: Order Comment: My flannery Type: BLOOD SPECIMENOrdering Facility: [facility] Address: [address] [place] [address] Performed By: #### 2 4323-8, 20214-4, 80904-7, 3016-3 ####[facility] LABCLIA [id number] [place] [address] [place] Creatinine and Glomerular filtration rate.predicted panel (S/P/Bld) 49 mL/min/1.73m??? Low >=60 [facility] Comment on above: Order Comment: My flannery Type: BLOOD SPECIMENOrdering Facility: [facility] Address: [address] [place] [address] Result Comment: Aura mated Glomerular Filtration Rate (eGFR) is calculated using the 2020 CKD-EPI creatinine equation. This equation utilizes serum creatinine, sex, and age as parameters. The creatinine assay has traceable calibration to isotope dilution-mass spectrometry. Refer to KDIGO guidelines for clinical interpretation. In patients with unstable renal function, e.g. those with acute kidney injury, the eGFR may not accurately reflect actual GFR. Performed By: #### 2 4323-8, 71483-1, 40769-7, 6-3 ####[facility] LABCLIA [id number] [address] [address] [place] Glucose [Mass/Vol] 128 mg/dL High 74-[address] [facility] Comment on above: Order Comment: My flannery Type: BLOOD SPECIMENOrdering Facility: [facility] Address: [address] [place] [address] Result Comment: The [place] Diabetes Association (ADA) provides guidance for cutoff values for fasting glucose and random glucose. The ADA defines fasting as no caloric intake for at least 8 hours. Fasting plasma glucose results between 100 to 125 mg/dL indicate increased risk for diabetes (prediabetes). Fasting plasma glucose results greater than or equal to 126 mg/dL meet the criteria for diagnosis of diabetes. In the absence of unequivocal hyperglycemia, results should be confirmed by repeat testing. In a patient with classic symptoms of hyperglycemia or hyperglycemic crisis, random plasma glucose results greater than or equal to 200 mg/dL meet the criteria for diagnosis of diabetes. Reference: Standards of Medical Care in Diabetes 2016, [place] Diabetes Association. Diabetes Care. 2016.39(Suppl 1). Performed By: #### 2 4323-8, 38455-2, 16950-4, 3016-3 ####[facility] LABCLIA [id number] [address] [address] [place] Potassium [Moles/Vol] 4.3 mmol/L Normal 3.7-5.1 [facility] Comment on above: Order Comment: Speci men Type: BLOOD SPECIMENOrdering Facility: [facility] Address: [address] [place] [address] Performed By: #### 2 4323-8, 58332-6, 84796-6, 3016-3 ####[facility] LABCLIA [id number] [place] [address] [place] Protein [Mass/Vol] 7.8 g/dL Normal 6.3-8.[address] [facility] Comment on above: Order Comment: Faithi men Type: BLOOD SPECIMENOrdering Facility: [facility] Address: [address] [place] [address] Performed By: #### 2 4323-8, 08781-3, 32604-0, 3016-3 ####[facility] LABCLIA [id number] [address] [address] [place] Sodium [Moles/Vol] 141 mmol/L Normal 136-[address] [facility] Comment on above: Order Comment: Speci men Type: BLOOD SPECIMENOrdering Facility: [facility] Address: [address] [place] [address] Performed By: #### 2 4323-8, 77166-4, 31331-5, 3016-3 ####[facility] LABCLIA [id number] [facility] [address] [address] [place] Urea nitrogen [Mass/Vol] 35 mg/dL High 7-21 [facility] Comment on above: Order Comment: My men Type: BLOOD SPECIMENOrdering Facility: [facility] Address: [address] [place] [address] Performed By: #### 2 4323-8, 23304-3, 68893-9, 3016-3 ####[facility] LABCLIA [id number] [facility] [place] [id number] [place] HbA1c (Bld)on 02-27-2025 Average glucose Estimated from glycated hemoglobin (Bld) [Mass/Vol] 137 mg/dL Normal [facility] Comment on above: Order Comment: [facility] Type: BLOOD SPECIMENOrdering Facility: [facility] Address: [address] [place] [address] Result Comment: eAG: (Estimated average glucose) is a calculated value from HgbA1c and is sales representative girls[employer] apparel of the average blood glucose level in the last 2-3 month period. Performed By: #### 5 5454-3 ####[facility] LABCLIA [id number] [place] [address] [place] [facility] HbA1c (Bld) [Mass fraction] 6.4 % High 4.3-5.6 [facility] Comment on above: Order Comment: My alma delia Type: BLOOD SPECIMENOrdering Facility: [facility] Address: [address] [place] [address] Result Comment: [place] Diabetes Association guidelines indicate that patients with HgbA1c in the range 5.7-6.4% are at increased risk for development of diabetes, and intervention by lifestyle modification may be beneficial. HgbA1c greater or equal to 6.5% is considered diagnostic of diabetes. Performed By: #### 5 5454-3 ####[facility] LABCLIA [id number] [facility] [address] [address] [place] Lipid 1996 panelon 5 Cholesterol [Mass/Vol] 129 mg/dL Normal <200 Cl [facility] Comment on above: Order Comment: Speci men Type: BLOOD SPECIMENOrdering Facility: [facility] Address: [address] [place], [place] [address] Result Comment: <200 mg/dL, Desirable 200-239 mg/dL, Borderline high >239 mg/dL, High Performed By: #### 2 4323-8, 62208-3, 55092-7, 3016-3 ####[facility] LABCLIA [id number] [facility] [id number], [place] [address] [place] Cholesterol in HDL [Mass/Vol] 69 mg/dL Normal >39 [facility] Comment on above: Order Comment: Speci men Type: BLOOD SPECIMENOrdering Facility: [facility] Address: [address] [place] [address] Result Comment: 40-5 9 mg/dL, Acceptable >59 mg/dL, High: Negative risk factor for coronary heart disease <40 mg/dL, Low: Positive risk factor for coronary heart disease Performed By: #### 2 4323-8, 30711-8, 35391-8, 3016-3 ####[facility] LABCLIA [id number] [facility] [id number], [place] [address] [place] Cholesterol in LDL [Mass/Vol] 43 mg/dL Normal <100 [facility] Comment on above: Order Comment: Speci men Type: BLOOD SPECIMENOrdering Facility: [facility] Address: [address] [place] [address] Result Comment: <100 mg/dL, Optimal 100-129 mg/dL, Near optimal/above optimal 130-159 mg/dL, Borderline high 160-189 mg/dL, High >189 mg/dL, Very high Secondary prevention optimal LDL Cholesterol levels are recommended to be < 70 mg/dL Performed By: #### 2 4323-8, 34265-2, 92991-0, 3016-3 ####[facility] LABCLIA [id number] [id number], [place] [address] [place] Cholesterol in LDL/Cholesterol in HDL [Mass ratio] 0.62 {ratio} Normal <2.54 [facility] Comment on above: Order Comment: Speci men Type: BLOOD SPECIMENOrdering Facility: [facility] Address: [address] [place] [address] Result Comment: Kike maciel: 1. National Cholesterol Education Program ATP III Guideline At-A-Glance Quick Desk Reference: National Heart, Lung, and Blood [place]. National Institutes of Health. 2001: NIH Publication No. 01-3305. 2. An International Atherosclerosis Society position paper: global recommendations for the management of dyslipidemia: executive summary, Atherosclerosis. 2014: 232(2):410-413. Performed By: #### 2 4323-8, 27341-7, 23385-5, 3016-3 ####[facility] LABCLIA [id number] [address] [address] [place] Cholesterol in VLDL [Mass/Vol] 17 mg/dL Normal <30 [facility] Comment on above: Order Comment: Speci men Type: BLOOD SPECIMENOrdering Facility: [facility] Address: [address] [place] [address] Performed By: #### 2 4323-8, 54643-8, 06465-9, 3016-3 ####[facility] LABCLIA [id number] [address] [address] [place] Cholesterol non HDL [Mass/Vol] 60 mg/dL Normal <130 [facility] Comment on above: Order Comment: Speci men Type: BLOOD SPECIMENOrdering Facility: [facility] Address: [address] [place] [address] Result Comment: <130 mg/dL, Optimal 130-159 mg/dL, Near optimal/above optimal 160-189 mg/dL, Borderline high 190-219 mg/dL, High >219 mg/dL, Very high Secondary prevention optimal non HDL Cholesterol levels are recommended to be <100 mg/dL Performed By: #### 2 4323-8, 08394-7, 10982-5, 3016-3 ####[facility] LABCLIA [id number] [address] [place] [address] [place] Cholesterol.total/Chol esterol in HDL [Mass ratio] 1.87 {ratio} Normal <5.10 [facility] Comment on above: Order Comment: Speci men Type: BLOOD SPECIMENOrdering Facility: [facility] Address: [address] [place] [address] Performed By: #### 2 4323-8, 04578-1, 27604-5, 3016-3 ####[facility] LABCLIA [id number] [place] [address] [place] FASTING TIME [address] [facility] Comment on above: Order Comment: Speci men Type: BLOOD SPECIMENOrdering Facility: [facility] Address: [address] [place] [address] Performed By: #### 2 4323-8, 23999-8, 32286-1, 3016-3 ####[facility] LABCLIA [id number] [place] [address] [place] Triglyceride [Mass/Vol] 83 mg/dL Normal <150 [facility] Comment on above: Order Comment: Speci men Type: BLOOD SPECIMENOrdering Facility: [facility] Address: [address] [place] [address] Result Comment: <150 mg/dL, Normal 150-199 mg/dL, Borderline high 200-499 mg/dL, High >499 mg/dL, Very high Performed By: #### 2 4323-8, 93843-5, 71133-5, 3016-3 ####[facility] LABCLIA [id number] [address] [address] [place] Magnesium SerPl-mCncon 02-27 Magnesium [Mass/Vol] 2.0 mg/dL Normal 1.7-2.3 [facility] Comment on above: Order Comment: Speci men Type: BLOOD SPECIMENOrdering Facility: [facility] Address: [address] [place] [address] Performed By: #### 1 9123-9 ####[facility] LABCLIA [id number] [address] [address] [place] [facility]BNP [facility] 02-27 Natriuretic peptide.B prohormone N-Terminal [Mass/Vol] 2576 pg/mL High <450 [facility] Comment on above: Order Comment: Speci men Type: BLOOD SPECIMENOrdering Facility: [facility] Address: [address] [place] [address] Performed By: #### 2 4323-8, 56148-3, 71738-9, 3016-3 ####[facility] LABCLIA [id number] [address] [address] [place] TSH SerPl-aCncon 02-27-2025 TSH Qn 4.470 m[IU]/L High 0.270-4.[address] [facility] Comment on above: Order Comment: Speci men Type: BLOOD SPECIMENOrdering Facility: [facility] Address: [address] [place] [address] Performed By: #### 2 4323-8, 19687-6, 21705-7, 3016-3 ####[facility] LABCLIA [id number] [place] [address] [place] Chest PA and Lateralon 01-31 Chest PA and Lateral Normal [facility] 12 Lead EKG performed by [facility] on 01-23-2025 12 Lead EKG performed by [facility] Anion gap in Serum or Plasma Ordered By: Magdi Thomas on 01-23-2025 Anion gap [Moles/Vol] 11 mmol/L 5- [facility] BUN/creatinine ratioOrdered By: Magdi Thomas on 01-23-2025 Urea nitrogen/Creatinine [Mass ratio] 25.4 mg/mg High - [facility] Basic Metabolic Profile (BMP )on 01-23-2025 BUN/CRE 25.4 RATIO High 09-09 [facility] Comment on above: Performed By: #### L 300.3900, L500.2500 ####[facility] [address] [place], [address] Calcium [Mass/Vol] 10.2 mg/dL Normal 7.6-11.0 [facility] Comment on above: Performed By: #### L 300.3900, L500.2500 ####[facility] [address] [place], [address] Chloride [Moles/Vol] 101 mmol/L Normal 98-108 [facility] Comment on above: Performed By: #### L 300.3900, L500.2500 ####[facility] [address] [place], [address] CO2 [Moles/Vol] 29.7 mmol/L Normal 21.0-32.0 [facility] Comment on above: Performed By: #### L 300.3900, L500.2500 ####[facility] [address] [place], [address] Creatinine [Mass/Vol] 1.27 mg/dL High 0.70-1.20 [facility] Comment on above: Performed By: #### L 300.3900, L500.2500 ####[facility] [address] [place], [address] GAP 11 Normal 5-15 [facility] Comment on above: Performed By: #### L 300.3900, L500.2500 ####[facility] [address] [place], [address] GFR/1.73 sq M.predicted among non-blacks MDRD (S/P/Bld) [Vol rate/Area] 41 mL/min/{1.73_m2} Low >60 [facility] Comment on above: Result Comment: mL/m in/1.73m2 CKD-EPI Creatinine Equation (2020) Performed By: #### L 300.3900, L500.2500 ####[facility] [address] [place], [address] Glucose [Mass/Vol] 138 mg/dL High 70-99 [facility] Comment on above: Performed By: #### L 300.3900, L500.2500 ####[facility] [address] [place], [address] Potassium [Moles/Vol] 4.4 mmol/L Normal 3.3-5.1 [facility] Comment on above: Performed By: #### L 300.3900, L500.2500 ####[facility] [address] [place], [address] Sodium [Moles/Vol] 142 mmol/L Normal 133-145 [facility] Comment on above: Performed By: #### L 300.3900, L500.2500 ####[facility] [address] [place], [address] Urea nitrogen [Mass/Vol] 32 mg/dL High 4-19 [facility] Comment on above: Performed By: #### L 300.3900, L500.2500 ####[facility] [address] [place], [address] Carbon dioxide, total [Moles /volume] in Central venous bloodOrdered By: Magdi Thomas on 01-23-2025 CO2 [Moles/Vol] 29.7 mmol/L 21.0-32.0 [facility] Cardiology Visit Reporton Cardiology Visit Report Normal [facility] Chloride assayOrdered By: Ernestine Thomas on 01-23-2025 Chloride [Moles/Vol] 101 mmol/L 98-108 [facility] GFR/1.73 sq M.predicted tan g non-blacks MDRD (S/P/Bld) [Vol rate/Area]Ordered By: Magdi Thomas on 01-23-2025 Estimated GFR (MDRD) Non-Af Amer 41 Low >60 [facility] Comment on above: mL/min/1.73m2 CKD-EP I Creatinine Equation (2020) Glomerular filtration rate ( GFR) estimation/1.73 sq m using serum, plasma, or whole bOrdered By: Magdi Thomas on 01-23-2025 GFR/1.73 sq M.predicted among non-blacks MDRD (S/P/Bld) [Vol rate/Area] 41 mL/min/{1.73_m2} Low >60 [facility] Comment on above: mL/min/1.73m2 CKD-EP I Creatinine Equation (2020) International normalized rat io (INR) calculationOrdered By: Magdi Thomas on 01-23-2025 INR Coag (Bld) [Relative time] 1.7 {INR} [facility] Potassium (Unsp spec) [Mass/ Vol]Ordered By: Magdi Thomas on 01-23-2025 Potassium [Moles/Vol] 4.4 mmol/L 3.3-5.1 [facility] Potassium measurement (mass/ volume)Ordered By: Magdi Thomas on 01-23-2025 Potassium (Unsp spec) [Mass/Vol] 4.4 mmol/L 3.3-5.1 [facility] Prothrombin Time w/INRon INR Coag (PPP) [Relative time] 1.7 {INR} Normal [facility] [facility] Comment on above: Performed By: #### L 300.3900, L500.2500 ####[facility] [address] [facility] [place], [address] PT Coag (PPP) [Time] 20.7 s High 11.7-14.9 [facility] Comment on above: Performed By: #### L 300.3900, L500.2500 ####[facility] [address] [place], [address] Prothrombin timeOrdered By: Magdi Thomas on 01-23-2025 PT Coag (PPP) [Time] 20.7 s High 11.7-14.9 [facility] Serum creatinine measurement (mass/volume)Ordered By: Magdi Thomas on 01-23-2025 Creatinine [Mass/Vol] 1.27 mg/dL High 0.70-1.20 [facility] Serum glucose measurement (m ass/volume)Ordered By: Magdimarian Thomas on 01-23-2025 Glucose [Mass/Vol] 138 mg/dL High 70-99 [facility] Serum or plasma calcium allan urement (mass/volume)Ordered By: Magdi Demiter on 01-23-2025 Calcium [Mass/Vol] 10.2 mg/dL 7.6-11.0 [facility] Serum or plasma urea nitroge n measurement (mass/volume)Ordered By: Magdi Demiter on 01-23-2025 Urea nitrogen [Mass/Vol] 32 mg/dL High 4-19 [facility] Sodium levelOrdered By: Skalisa Juáreziter on 01-23-2025 Sodium [Moles/Vol] 142 mmol/L 133-145 [facility] CNOVon 01-22-2025 CNOV Office Visit (INTMWS ) BLESSING JACKSON I ([id number]) 1940 F Date Time Provider Department 01/22/25 2:40 PM JEANA GUERRA INTTomekaWS During your visit today, we recorded the following information about you: Pulse Blood pressure Weight Height 80/minute 106/68 88.6 kg 1.549 m Jeana Guerra MD 01/22/2025 5:42 PM Signed Reason for Visit Patient presents with: Hospital F/U: Hospital [facility] f/u, anuradha Funk I Bing is a 82 year old female who presents here today for Above Complaints.. 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 They put her in a Mattie boot and it has helped. For her lipodermatosclerosis she was seeing a vascular doctor at [facility] Dr Warren wolfe who basically said that some possible intervention may be available for vein stripping the traditional way would be with significant complications. So suggested she tried Gordy Coughlinri for the atypical stropping for venous insufficiency. Dr Shaw started her on Vasculera and her swelling Is def better than before. Dr Kelley tried her on pramipexole substitution gabapentin. but that did not work for her, se of dizziness so She went back to gabapentin. Has balance issues from neuropathy, Diabetes Mellitus related most likely so has been using a type of walker to help her. Last visit we increased the victoza and her sugars are much much better than before she also 5 pounds of weight. HTN: BP uncontrolled today. Recently her amlodipine was increased but that made her too tired. She is taking 2.5 in the morning and 5 mgs in the evening. . She will check the bp for the next week and if more than 135 then go on the amlodipine. Checks BP at home. Compliant with medications. Denies any chest pain, palpitations, SOB, swelling in the feet. Careful with diet to avoid salt, trying to eat more fruits and vegetables, exercises regularly January 08, 2025: Sudden weight gain, of around 30 pounds in 2 weeks, no changes in diet or water intake. Does not have an appetite. Says it started with a sinus infection, when she went to urgent care she had sinus infection, first in October, got better and got worse. Sinuses feel full, and there is a lot of drainage post nasally and she feels very stuffy, can't breathe, mostly clear but was given an abx. Which did not help her symptoms. In addition to the above she has been feeling clumpsy as she has gained around 30 in the past 2 weeks, most of it is in the lower abdomen, her limbs are not affected much. The legs have baseline swelling. She was put on SCDS and that has helped with the pedal insufficiency. January 22, 2025 This is a discharge summary. Patient was admitted on January 08. She was actually sent from our office to the ER and we had given information to the ER. She was discharged on January 11. Admitting diagnosis was A-fib with RVR, congestive heart failure preserved ejection fraction in acute exacerbation, pleural effusion. She was given Lasix 40 mg twice a day and currently is taking 40 mg once a day. Her atenolol was switched to metoprolol 50 mg. She is on Eliquis 5 mg 2 times a day for anticoagulation for you diagnosis of A-fib and on Cardizem to 40 mg. She is follow-up tomorrow with [facility] cardiology group. She has lost almost most of the weight that she had gained. She had actually gained 30 pounds of weight over the past few weeks. She was surprised that she had too much fluid in her lungs. She is able to breathe better and her sinuses and other symptoms also have become better. The only problem today that she notes is A little Janis phlegm and itching. Skin of her hands, her abdomen are all itching and dry. She does note that overall overall excessive dryness after the Lasix. She also has a little janis phlegm and it is very sparse and intermittent. She wanted to know if she can stop the Mucinex. We discussed stopping the Mucinex. We also discussed the importance of taking Lasix 20 mg and to increase it if her weight increases. Briefly discussed nursing homes but we do not think she is needs to go to fdc at this point. May be some help at home would be great. No problem-specific Assessment AND Plan notes found for this encounter. PAST MEDICAL HISTORY Diagnosis Date Cardiomegaly Cellulitis Essential hypertension, benign 1979 (more content not included)... Normal [facility] Culture, Anaerobic Any Sourc deangelo 01-15-2025 CUAN No growth in 5 days. Normal [facility] Comment on above: Performed By: #### M 100.4001, L350.1000, M100.2000, M100.2900, L200.0200 ####[facility] [address] [place], [address] Body Fluid Culton 01-13-2025 BFC No growth aerobically. Normal [facility] Comment on above: Performed By: #### M 100.4001, L350.1000, M100.1999, M100.2900, L200.0200 ####[facility] [address] [place], [address] Basic Metabolic Profile (BMP )on 01-12-2025 BUN Normal 7-18 [facility] Comment on above: Result Comment: Canc elled via OM: Order cancelled - Patient discharged Performed By: #### L 500.2500, L100.0100 ####[facility] [address] [place], [address] BUN/CRE Normal 10-20 [facility] Comment on above: Result Comment: Canc elled via OM: Order cancelled - Patient discharged Performed By: #### L 500.2500, L100.0100 ####[facility] [address] [place], [address] CA,Total Normal 8.5-10.1 [facility] Comment on above: Result Comment: Canc elled via OM: Order cancelled - Patient discharged Performed By: #### L 500.2500, L100.0100 ####[facility] [address] [place], [address] CL Normal 98-107 [facility] Comment on above: Result Comment: Canc elled via OM: Order cancelled - Patient discharged Performed By: #### L 500.2500, L100.0100 ####[facility] [address] [place], [address] CO2 Normal 21.0-32.0 [facility] Comment on above: Result Comment: Canc elled via OM: Order cancelled - Patient discharged Performed By: #### L 500.2500, L100.0100 ####[facility] [address] [place], [address] CREAT,SERUM Normal 0.55-1.02 [facility] Comment on above: Result Comment: Canc elled via OM: Order cancelled - Patient discharged Performed By: #### L 500.2500, L100.0100 ####[facility] [address] [place], [address] EST GFR Normal >60 [facility] Comment on above: Result Comment: Canc elled via OM: Order cancelled - Patient discharged Performed By: #### L 500.2500, L100.0100 ####[facility] [address] [place], [address] EST GFR - AA Normal >60 [facility] Comment on above: Result Comment: Canc elled via OM: Order cancelled - Patient discharged Performed By: #### L 500.2500, L100.0100 ####[facility] [address] [place], [address] GAP Normal 5-15 [facility] Comment on above: Result Comment: Canc elled via OM: Order cancelled - Patient discharged Performed By: #### L 500.2500, L100.0100 ####[facility] [address] [place], [address] GLU Normal 74-106 [facility] Comment on above: Result Comment: Canc elled via OM: Order cancelled - Patient discharged Performed By: #### L 500.2500, L100.0100 ####[facility] [address] [place], [address] Potassium Normal 3.5-5.1 [facility] Comment on above: Result Comment: Canc elled via OM: Order cancelled - Patient discharged Performed By: #### L 500.2500, L100.0100 ####[facility] [address] [place], [address] Basic Metabolic Profile (BMP) Normal 136-145 [facility] Comment on above: Result Comment: Canc elled via OM: Order cancelled - Patient discharged Performed By: #### L 500.2500, L100.0100 ####[facility] [address] [place], [address] CBC W/Diff, Automatedon 02-2 Absolute Neut Normal 2.0-7.7 [facility] Comment on above: Result Comment: Canc elled via OM: Order cancelled - Patient discharged Performed By: #### L 500.2500, L100.0100 ####[facility] [address] [place], [address] HCT Normal 37-47 [facility] Comment on above: Result Comment: Canc elled via OM: Order cancelled - Patient discharged Performed By: #### L 500.2500, L100.0100 ####[facility] [address] [place], [address] HGB Normal 12.0-15.0 [facility] Comment on above: Result Comment: Canc elled via OM: Order cancelled - Patient discharged Performed By: #### L 500.2500, L100.0100 ####[facility] [address] [place], [address] MCH Normal 27.0-32.0 [facility] Comment on above: Result Comment: Canc elled via OM: Order cancelled - Patient discharged Performed By: #### L 500.2500, L100.0100 ####[facility] [address] [place], [address] MCHC Normal 32-36 [facility] Comment on above: Result Comment: Canc elled via OM: Order cancelled - Patient discharged Performed By: #### L 500.2500, L100.0100 ####[facility] [address] [place], [address] MCV Normal 81-99 [facility] Comment on above: Result Comment: Canc elled via OM: Order cancelled - Patient discharged Performed By: #### L 500.2500, L100.0100 ####[facility] [address] [place], [address] NEUT% Normal 47-70 [facility] Comment on above: Result Comment: Canc elled via OM: Order cancelled - Patient discharged Performed By: #### L 500.2500, L100.0100 ####[facility] [address] [place], [address] PLT Normal 150-450 [facility] Comment on above: Result Comment: Canc elled via OM: Order cancelled - Patient discharged Performed By: #### L 500.2500, L100.0100 ####[facility] [address] [place], [address] RBC Normal 4.2-5.4 [facility] Comment on above: Result Comment: Canc elled via OM: Order cancelled - Patient discharged Performed By: #### L 500.2500, L100.0100 ####[facility] [address] [place], [address] RDW CV Normal 11.6-14.6 [facility] Comment on above: Result Comment: Canc elled via OM: Order cancelled - Patient discharged Performed By: #### L 500.2500, L100.0100 ####[facility] [address] [place], [address] RDW SD Normal 35.1-43.9 [facility] Comment on above: Result Comment: Canc elled via OM: Order cancelled - Patient discharged Performed By: #### L 500.2500, L100.0100 ####[facility] [address] [place], [address] WBC Normal 4.4-11.0 [facility] Comment on above: Result Comment: Canc elled via OM: Order cancelled - Patient discharged Performed By: #### L 500.2500, L100.0100 ####[facility] [address] [place], [address] Absolute lymphocyte countOrd ered By: Supa Brumfield on 01-11-2025 Lymphocytes Auto (Unsp spec) [#/Vol] 1.17 10*3/uL 0.83-4.51 [facility] Absolute neutrophil countOrd ered By: Supa Brumfield on 01-11-2025 Neutrophils (Bld) [#/Vol] 4.1 10*3/uL 2.0-7.7 [facility] Automated lymphocyte count a s percentage of total leukocytesOrdered By: Supa Octaviano on 01-11-2025 Lymphocytes/100 WBC Auto (Unsp spec) 18.7 % Low 19-41 [facility] Basic Metabolic Profile (BMP )on 01-11-2025 BUN/CRE 35.0 RATIO High 10-20 [facility] Comment on above: Performed By: #### L 100.0100, L500.2500 ####[facility] [address] [place], [address] CA,Total 9.1 mg/dL Normal 8.5-10.1 [facility] Comment on above: Performed By: #### L 100.0100, L500.2500 ####[facility] [address] [place], [address] Chloride [Moles/Vol] 104 mmol/L Normal 98-107 [facility] Comment on above: Performed By: #### L 100.0100, L500.2500 ####[facility] [address] [place], [address] CO2 [Moles/Vol] 29.0 mmol/L Normal 21.0-32.0 [facility] Comment on above: Performed By: #### L 100.0100, L500.2500 ####[facility] [address] [place], [address] Creatinine [Mass/Vol] 1.17 mg/dL High 0.55-1.02 [facility] Comment on above: Result Comment: The validity of the calculated GFR GFRAA in patients over70 years has not been determined. Clinical correlation isessential. Performed By: #### L 100.0100, L500.2500 ####[facility] [address] [place], [address] ECRCL 36.83 ml/min Normal [facility] Comment on above: Performed By: #### L 100.0100, L500.2500 ####[facility] [address] [place], [address] EST GFR - AA 57 mL/min Low >60 [facility] Comment on above: Result Comment: Afri can Zambian GFR Calc Performed By: #### L 100.0100, L500.2500 ####[facility] [address] [place], [address] GAP 7 Normal 5-15 [facility] Comment on above: Performed By: #### L 100.0100, L500.2500 ####[facility] [address] [place], [address] GFR/1.73 sq M.predicted among non-blacks MDRD (S/P/Bld) [Vol rate/Area] 47 mL/min/{1.73_m2} Low >60 [facility] Comment on above: Result Comment: Non- GFR Calc Performed By: #### L 100.0100, L500.2500 ####[facility] [address] [place], [address] Glucose [Mass/Vol] 122 mg/dL High 74-106 [facility] Comment on above: Result Comment: Fast ing Glucose result from 100 to 125 mg/dLsuggests IMPAIRED HOMEOSTASIS per A.D.A. criteria. Performed By: #### L 100.0100, L500.2500 ####[facility] [address] [place], [address] Potassium [Moles/Vol] 3.6 mmol/L Normal 3.5-5.1 [facility] Comment on above: Performed By: #### L 100.0100, L500.2500 ####[facility] [address] [place], [address] Sodium [Moles/Vol] 140 mmol/L Normal 136-145 [facility] Comment on above: Performed By: #### L 100.0100, L500.2500 ####[facility] [address] [place], [address] Urea nitrogen [Mass/Vol] 41 mg/dL High 7-18 [facility] Comment on above: Performed By: #### L 100.0100, L500.2500 ####[facility] [address] [place], [address] Basophil percentageOrdered B y: Supa Brumfield on 01-11-2025 Basophils/100 WBC (Bld) 1.1 % High 0-1 [facility] Blood urea nitrogen (BUN)/cr eatinine ratioOrdered By: Supa Brumfield on 01-11-2025 Urea nitrogen/Creatinine [Mass ratio] 35.0 mg/mg High 10-20 [facility] CBC W/Diff, Automatedon - Absolute Lymph 1.17 X10 3/uL Normal 0.83-4.51 [facility] Comment on above: Performed By: #### L 100.0100, L500.2500 ####[facility] [address] [place], [address] Absolute Neut 4.1 X10 3/uL Normal 2.0-7.7 [facility] Comment on above: Performed By: #### L 100.0100, L500.2500 ####[facility] [address] [place], [address] Basophils/100 WBC (Bld) 1.1 % High 0-1 [facility] Comment on above: Performed By: #### L 100.0100, L500.2500 ####[facility] [address] [place], [address] Eosinophils/100 WBC (Bld) 5.7 % High 0-5 [facility] Comment on above: Performed By: #### L 100.0100, L500.2500 ####[facility] [address] [place], [address] Erythrocyte distribution width (RBC) [Ratio] 15.9 % High 11.6-14.6 [facility] Comment on above: Performed By: #### L 100.0100, L500.2500 ####[facility] [address] [place], [address] Hematocrit (Bld) [Volume fraction] 37.4 % Normal 37-47 [facility] Comment on above: Performed By: #### L 100.0100, L500.2500 ####[facility] [address] [place], [address] Hemoglobin (Bld) [Mass/Vol] 11.6 g/dL Low 12.0-15.0 [facility] Comment on above: Performed By: #### L 100.0100, L500.2500 ####[facility] [address] [place], [address] IG% 0.300 Normal 0.0-0.9 [facility] Comment on above: Result Comment: IG% - Immature Granulocytes (promyelocytes, myelocytes andmetamyelocytes) > 1% indicates that a LEFT SHIFT is Present. Performed By: #### L 100.0100, L500.2500 ####[facility] [address] [place], [address] Lymphocytes/100 WBC (Bld) 18.7 % Low 19-41 [facility] Comment on above: Performed By: #### L 100.0100, L500.2500 ####[facility] [address] [place], [address] MCH (RBC) [Entitic mass] 28.2 pg Normal 27.0-32.0 [facility] Comment on above: Performed By: #### L 100.0100, L500.2500 ####[facility] [address] [place], [address] MCHC (RBC) [Mass/Vol] 31.0 g/dL Low 32-36 [facility] Comment on above: Performed By: #### L 100.0100, L500.2500 ####[facility] [address] [place], [address] MCV (RBC) [Entitic vol] 91.0 fL Normal 81-99 [facility] Comment on above: Performed By: #### L 100.0100, L500.2500 ####[facility] [address] [place], [address] Monocytes/100 WBC (Bld) 9.1 % Normal 0-10 [facility] Comment on above: Performed By: #### L 100.0100, L500.2500 ####[facility] [address] [place], [address] Neutrophils/100 WBC (Bld) 65.1 % Normal 47-70 [facility] Comment on above: Performed By: #### L 100.0100, L500.2500 ####[facility] [address] [place], [address] Nucleated RBC (Bld) [#/Vol] 0 10*3/uL Normal 0-5 [facility] Comment on above: Performed By: #### L 100.0100, L500.2500 ####[facility] [address] [place], [address] Platelet mean volume (Bld) [Entitic vol] 10.6 fL Normal 6.2-12.0 [facility] Comment on above: Performed By: #### L 100.0100, L500.2500 ####[facility] [address] [place], [address] Platelets (Bld) [#/Vol] 251 10*3/uL Normal 150-450 [facility] Comment on above: Performed By: #### L 100.0100, L500.2500 ####[facility] [address] [place], [address] RBC (Bld) [#/Vol] 4.11 10*6/uL Low 4.2-5.4 [facility] Comment on above: Performed By: #### L 100.0100, L500.2500 ####[facility] [address] [place], [address] RDW SD 52.4 fl High 35.1-43.9 [facility] Comment on above: Performed By: #### L 100.0100, L500.2500 ####[facility] [address] [place], [address] WBC (Bld) [#/Vol] 6.3 10*3/uL Normal 4.4-11.0 [facility] Comment on above: Performed By: #### L 100.0100, L500.2500 ####[facility] [address] [place], [address] Carbon dioxide measurementOr dered By: Supa Brumfield on 01-11-2025 CO2 [Moles/Vol] 29.0 mmol/L 21.0-32.0 [facility] Chloride measurementOrdered By: Supa Brumfield on 01-11-2025 Chloride [Moles/Vol] 104 mmol/L 98-107 [facility] Discharge Instructionon 12-23 Discharge Instruction Normal [facility] Eosinophil percentageOrdered By: Supa Brumfield on 01-11-2025 Eosinophils/100 WBC (Bld) 5.7 % High 0-5 [facility] Erythrocyte distribution wid th ratioOrdered By: Supa Brumfield on 01-11-2025 Erythrocyte distribution width (RBC) [Ratio] 15.9 % High 11.6-14.6 [facility] Erythrocyte distribution wid th standard deviationOrdered By: Supa Brumfield on 01-11-2025 Erythrocyte distribution width (RBC) [Entitic vol] 52.4 fL High 35.1-43.9 [facility] Erythrocyte distribution width (RBC) [Ratio] 52.4 fl High 35.1-43.9 [facility] Estimated glomerular filtrat ion rate (GFR) AmericanOrdered By: Supa Brumfield on 01-11-2025 Estimated GFR (MDRD) Amer 57 mL/min Low >60 [facility] Comment on above: GFR Calc Estimation of creatinine yuliya aranceOrdered By: Supa Brumfield on 01-11-2025 Estimated Creatinine Clearance Calc 36.83 ml/min [facility] Glomerular filtration rate ( GFR) estimationOrdered By: Supa Brumfield on 01-11-2025 Estimated GFR (MDRD) Non-Af Amer 47 mL/min Low >60 [facility] Comment on above: Non- GFR Calc GFR/1.73 sq M.predicted among non-blacks MDRD (S/P/Bld) [Vol rate/Area] 47 mL/min/{1.73_m2} Low >60 [facility] Comment on above: Non- GFR Calc Glucose measurementOrdered B y: Supa Brumfield on 01-11-2025 Glucose [Mass/Vol] 122 mg/dL High 74-106 [facility] Comment on above: Fasting Glucose resu lt from 100 to 125 mg/dL suggests IMPAIRED HOMEOSTASIS per A.D.A. criteria. Hematocrit Auto (Bld) [Volum e fraction]Ordered By: Supa Brumfield on 01-11-2025 Hematocrit (Bld) [Volume fraction] 37.4 % 37-47 [facility] Hemoglobin measurementOrdere d By: Supa Brumfield on 01-11-2025 Hemoglobin (Bld) [Mass/Vol] 11.6 g/dL Low 12.0-15.0 [facility] Immature granulocytes/100 WB C Auto (Bld)Ordered By: Supa Brumfield on 01-11-2025 Immature granulocytes/100 WBC (Bld) 0.300 % 0.0-0.9 [facility] Comment on above: IG% - Immature Granu locytes (promyelocytes, myelocytes and metamyelocytes) > 1% indicates that a LEFT SHIFT is Present. Lymphocytes Auto (Unsp spec) [#/Vol]Ordered By: Supa Brumfield on 01-11-2025 Lymphocytes (Bld) [#/Vol] 1.17 10*3/uL 0.83-4.51 [facility] Lymphocytes/100 WBC Auto (Un sp spec)Ordered By: Supa Brumfield on 01-11-2025 Lymphocytes/100 WBC (Bld) 18.7 % Low 19-41 [facility] MCV (mean corpuscular volume ) determinationOrdered By: Supa Brumfield on 01-11-2025 MCV (RBC) [Entitic vol] 91.0 fL 81-99 [facility] Mean corpuscular hemoglobin (MCH) determinationOrdered By: Supa Brumfield on 01-11-2025 MCH (RBC) [Entitic mass] 28.2 pg 27.0-32.0 [facility] Mean corpuscular hemoglobin concentration (MCHC) determinationOrdered By: Supa Brumfield on 01-11-2025 MCHC (RBC) [Mass/Vol] 31.0 g/dL Low 32-36 [facility] Mean platelet volume determi nationOrdered By: Supa Brumfield on 01-11-2025 Platelet mean volume (Bld) [Entitic vol] 10.6 fL 6.2-12.0 [facility] Monocyte percentageOrdered B y: Supa Brumfield on 01-11-2025 Monocytes/100 WBC (Bld) 9.1 % 0-10 [facility] Neutrophil percentageOrdered By: Supa Brumfield on 01-11-2025 Neutrophils/100 WBC (Bld) 65.1 % 47-70 [facility] Nucleated red blood cell per centageOrdered By: Supa Brumfield on 01-11-2025 Nucleated RBC/100 WBC (Bld) [Ratio] 0 % 0-5 [facility] Platelet countOrdered By: Fanny Brumfield on 01-11-2025 Platelets (Bld) [#/Vol] 251 10*3/uL 150-450 [facility] Potassium measurementOrdered By: Supa Brumfield on 01-11-2025 Potassium [Moles/Vol] 3.6 mmol/L 3.5-5.1 [facility] RBC Auto (Bld) [#/Vol]Ordere d By: Supa Brumfield on 01-11-2025 RBC (Bld) [#/Vol] 4.11 10*6/uL Low 4.2-5.4 [facility] Serum anion gap measurementO rdered By: Supa Brumfield on 01-11-2025 Anion gap [Moles/Vol] 7 mmol/L 5-15 [facility] Serum or plasma calcium alaln urement (mass/volume)Ordered By: Supa Brumfield on 01-11-2025 Calcium [Mass/Vol] 9.1 mg/dL 8.5-10.1 [facility] Serum or plasma creatinine m easurement (mass/volume)Ordered By: Supa Brumfield on 01-11-2025 Creatinine [Mass/Vol] 1.17 mg/dL High 0.55-1.02 [facility] Comment on above: The validity of the calculated GFR & GFRAA in patients over 70 years has not been determined. Clinical correlation is essential. Serum or plasma urea nitroge n measurement (mass/volume)Ordered By: Supa Brumfield on 01-11-2025 Urea nitrogen [Mass/Vol] 41 mg/dL High 7-18 [facility] Sodium levelOrdered By: Melissa Brumfield on 01-11-2025 Sodium [Moles/Vol] 140 mmol/L 136-145 [facility] White blood cell (WBC) count Ordered By: Supa Brumfield on 01-11-2025 WBC (Bld) [#/Vol] 6.3 10*3/uL 4.4-11.0 [facility] Abdomen Limitedon 01-10-2025 Abdomen Limited Normal [facility] Basic Metabolic Profile (BMP )on 01-10-2025 BUN/CRE 34.6 RATIO High 10-20 [facility] Comment on above: Performed By: #### L 500.2500, L501.2300, L501.5200, L500.3400, L100.0100 ####[facility] [address] [place], [address] CA,Total 9.4 mg/dL Normal 8.5-10.1 [facility] Comment on above: Performed By: #### L 500.2500, L501.2300, L501.5200, L500.3400, L100.0100 ####[facility] [address] [place], [address] Chloride [Moles/Vol] 107 mmol/L Normal 98-107 [facility] Comment on above: Performed By: #### L 500.2500, L501.2300, L501.5200, L500.3400, L100.0100 ####[facility] [address] [place], [address] CO2 [Moles/Vol] 25.0 mmol/L Normal 21.0-32.0 [facility] Comment on above: Performed By: #### L 500.2500, L501.2300, L501.5200, L500.3400, L100.0100 ####[facility] [address] [place], [address] Creatinine [Mass/Vol] 1.07 mg/dL High 0.55-1.02 [facility] Comment on above: Result Comment: The validity of the calculated GFR GFRAA in patients over70 years has not been determined. Clinical correlation isessential. Performed By: #### L 500.2500, L501.2300, L501.5200, L500.3400, L100.0100 ####[facility] [address] [place], [address] ECRCL 40.80 ml/min Normal [facility] Comment on above: Performed By: #### L 500.2500, L501.2300, L501.5200, L500.3400, L100.0100 ####[facility] [address] [place], [address] EST GFR - AA 63 mL/min Normal >60 [facility] Comment on above: Result Comment: Afri can [place]ian GFR Calc Performed By: #### L 500.2500, L501.2300, L501.5200, L500.3400, L100.0100 ####[facility] [address] [place], [address] GAP 7 Normal 5-15 [facility] Comment on above: Performed By: #### L 500.2500, L501.2300, L501.5200, L500.3400, L100.0100 ####[facility] [address] [place], [address] GFR/1.73 sq M.predicted among non-blacks MDRD (S/P/Bld) [Vol rate/Area] 52 mL/min/{1.73_m2} Low >60 [facility] Comment on above: Result Comment: Non- GFR Calc Performed By: #### L 500.2500, L501.2300, L501.5200, L500.3400, L100.0100 ####[facility] [address] [place], [address] Glucose [Mass/Vol] 173 mg/dL High 74-106 [facility] Comment on above: Result Comment: Fast ing Glucose result greater than or equal to 126 mg/dLsuggests DIABETES MELLITUS per A.D.A. criteria. Performed By: #### L 500.2500, L501.2300, L501.5200, L500.3400, L100.0100 ####[facility] [address] [place], [address] Potassium [Moles/Vol] 3.9 mmol/L Normal 3.5-5.1 [facility] Comment on above: Performed By: #### L 500.2500, L501.2300, L501.5200, L500.3400, L100.0100 ####[facility] [address] [place], [address] Sodium [Moles/Vol] 139 mmol/L Normal 136-145 [facility] Comment on above: Performed By: #### L 500.2500, L501.2300, L501.5200, L500.3400, L100.0100 ####[facility] [address] [place], [address] Urea nitrogen [Mass/Vol] 37 mg/dL High 7-18 [facility] Comment on above: Performed By: #### L 500.2500, L501.2300, L501.5200, L500.3400, L100.0100 ####[facility] [address] [place], [address] Bilirubin directOrdered By: Supa Brumfield on 01-10-2025 Bilirubin.direct [Mass/Vol] 0.23 mg/dL Normal 0.00-0.30 [facility] Comment on above: Performed By: #### L 500.2500, L501.2300, L501.5200, L500.3400, L100.0100 ####[facility] [address] [place], [address] Bilirubin, totalOrdered By: Supa Brumfield on 01-10-2025 Bilirubin [Mass/Vol] 0.60 mg/dL Normal 0.20-1.00 [facility] Comment on above: For patients on eltr ombopag therapy, use of Dimension [place]man TBIL is not recommended. Result Comment: For patients on eltrombopag therapy, use of Dimension [place] TBIL is not recommended. Performed By: #### L 500.2500, L501.2300, L501.5200, L500.3400, L100.0100 ####[facility] [address] [place], [address] Body Fluid Cell Count+Diffon 01-10-2025 PATH COMM/BF Reviewed Normal [facility] Comment on above: Order Comment: The r eference interval(s) and other method performancespecifications are unavailable for this body fluid.Comparison of the result with concentration in the blood,serum, or plasma is recommended. Result Comment: Nega tive for malignant cells.PLEASE ALSO REFER TO CYTOLOGY REPORT [id number] Luna M.D. 01/10/25 AMENDED REPORT 01/10/25 1421 PATH COMM/BF previously reported as: May follow Performed By: #### M 100.4001, L350.1000, M100.2000, M100.2900, L200.0200 ####[facility] [address] [place], [address] CBC W/Diff, Automatedon 12-23 0-2024 Absolute Lymph 0.82 X10 3/uL Low 0.83-4.51 [facility] Comment on above: Performed By: #### L 500.2500, L501.2300, L501.5200, L500.3400, L100.0100 ####[facility] [address] [place], [address] Absolute Neut 5.4 X10 3/uL Normal 2.0-7.7 [facility] Comment on above: Performed By: #### L 500.2500, L501.2300, L501.5200, L500.3400, L100.0100 ####[facility] [address] [place], [address] Basophils/100 WBC (Bld) 1.0 % Normal 0-1 [facility] Comment on above: Performed By: #### L 500.2500, L501.2300, L501.5200, L500.3400, L100.0100 ####[facility] [address] [place], [address] Eosinophils/100 WBC (Bld) 4.4 % Normal 0-5 [facility] Comment on above: Performed By: #### L 500.2500, L501.2300, L501.5200, L500.3400, L100.0100 ####[facility] [address] [place], [address] Erythrocyte distribution width (RBC) [Ratio] 15.9 % High 11.6-14.6 [facility] Comment on above: Performed By: #### L 500.2500, L501.2300, L501.5200, L500.3400, L100.0100 ####[facility] [address] [place], [address] Hematocrit (Bld) [Volume fraction] 38.5 % Normal 37-47 [facility] Comment on above: Performed By: #### L 500.2500, L501.2300, L501.5200, L500.3400, L100.0100 ####[facility] [address] [place], [address] Hemoglobin (Bld) [Mass/Vol] 11.9 g/dL Low 12.0-15.0 [facility] Comment on above: Performed By: #### L 500.2500, L501.2300, L501.5200, L500.3400, L100.0100 ####[facility] [address] [place], [address] IG% 0.100 Normal 0.0-0.9 [facility] Comment on above: Result Comment: IG% - Immature Granulocytes (promyelocytes, myelocytes andmetamyelocytes) > 1% indicates that a LEFT SHIFT is Present. Performed By: #### L 500.2500, L501.2300, L501.5200, L500.3400, L100.0100 ####[facility] [address] [place], [address] Lymphocytes/100 WBC (Bld) 11.6 % Low 19-41 [facility] Comment on above: Performed By: #### L 500.2500, L501.2300, L501.5200, L500.3400, L100.0100 ####[facility] [address] [place], [address] MCH (RBC) [Entitic mass] 28.0 pg Normal 27.0-32.0 [facility] Comment on above: Performed By: #### L 500.2500, L501.2300, L501.5200, L500.3400, L100.0100 ####[facility] [address] [place], [address] MCHC (RBC) [Mass/Vol] 30.9 g/dL Low 32-36 [facility] Comment on above: Performed By: #### L 500.2500, L501.2300, L501.5200, L500.3400, L100.0100 ####[facility] [address] [place], [address] MCV (RBC) [Entitic vol] 90.6 fL Normal 81-99 [facility] Comment on above: Performed By: #### L 500.2500, L501.2300, L501.5200, L500.3400, L100.0100 ####[facility] [address] [place], [address] Monocytes/100 WBC (Bld) 6.1 % Normal 0-10 [facility] Comment on above: Performed By: #### L 500.2500, L501.2300, L501.5200, L500.3400, L100.0100 ####[facility] [address] [place], [address] Neutrophils/100 WBC (Bld) 76.8 % High 47-70 [facility] Comment on above: Performed By: #### L 500.2500, L501.2300, L501.5200, L500.3400, L100.0100 ####[facility] [address] [place], [address] Nucleated RBC (Bld) [#/Vol] 0 10*3/uL Normal 0-5 [facility] Comment on above: Performed By: #### L 500.2500, L501.2300, L501.5200, L500.3400, L100.0100 ####[facility] [address] [place], [address] Platelet mean volume (Bld) [Entitic vol] 10.5 fL Normal 6.2-12.0 [facility] Comment on above: Performed By: #### L 500.2500, L501.2300, L501.5200, L500.3400, L100.0100 ####[facility] [address] [place], [address] Platelets (Bld) [#/Vol] 262 10*3/uL Normal 150-450 [facility] Comment on above: Performed By: #### L 500.2500, L501.2300, L501.5200, L500.3400, L100.0100 ####[facility] [address] [place], [address] RBC (Bld) [#/Vol] 4.25 10*6/uL Normal 4.2-5.4 [facility] Comment on above: Performed By: #### L 500.2500, L501.2300, L501.5200, L500.3400, L100.0100 ####[facility] [address] [place], [address] RDW SD 52.4 fl High 35.1-43.9 [facility] Comment on above: Performed By: #### L 500.2500, L501.2300, L501.5200, L500.3400, L100.0100 ####[facility] [address] [place], [address] WBC (Bld) [#/Vol] 7.1 10*3/uL Normal 4.4-11.0 [facility] Comment on above: Performed By: #### L 500.2500, L501.2300, L501.5200, L500.3400, L100.0100 ####[facility] [address] [place], [address] Gram Stainon 01-10-2025 GS Centrifuged Specimen ? Culture performed on centrifuged specimen Gram Stain Rare Red Blood Cells No organisms seen Normal [facility] Comment on above: Performed By: #### M 100.4001, L350.1000, M100.2000, M100.2900, L200.0200 ####[facility] [address] [place], [address] Liver Profileon 01-10-2025 ALK P 71 U/L Normal 45-117 [facility] Comment on above: Performed By: #### L 500.2500, L501.2300, L501.5200, L500.3400, L100.0100 ####[facility] [address] [place], [address] T PROT 7.0 g/dL Normal 6.4-8.2 [facility] Comment on above: Performed By: #### L 500.2500, L501.2300, L501.5200, L500.3400, L100.0100 ####[facility] [address] [place], [address] Liver ProfileOrdered By: Belinda Brumfield on 01-10-2025 AST [Catalytic activity/Vol] 19 U/L Normal 15-37 [facility] Comment on above: Performed By: #### L 500.2500, L501.2300, L501.5200, L500.3400, L100.0100 ####[facility] [address] [place], [address] Magnesium measurementOrdered By: Supa Brumfield on 01-10-2025 Magnesium [Mass/Vol] 1.9 mg/dL Normal 1.6-2.6 [facility] Comment on above: Performed By: #### L 500.2500, L501.2300, L501.5200, L500.3400, L100.0100 ####[facility] [address] [place], [address] Phosphoruson 01-10-2025 Phosphate [Mass/Vol] 3.7 mg/dL Normal 2.5-4.9 [facility] Comment on above: Performed By: #### L 500.2500, L501.2300, L501.5200, L500.3400, L100.0100 ####[facility] [address] [place], [address] Phosphorus measurementOrdere d By: Supa Brumfield on 01-10-2025 Phosphorus Level 3.7 mg/dL 2.5-4.9 [facility] Serum globulin measurementOr dered By: Supa Brumfield on 01-10-2025 Globulin (S) [Mass/Vol] 4.1 g/dL Normal 2.2-4.2 [facility] Comment on above: Performed By: #### L 500.2500, L501.2300, L501.5200, L500.3400, L100.0100 ####[facility] [address] [place], [address] Serum or plasma alanine albert otransferase (ALT) measurementOrdered By: Supa Brumfield on 01-10-2025 ALT [Catalytic activity/Vol] 16 U/L Normal 13-56 [facility] Comment on above: Performed By: #### L 500.2500, L501.2300, L501.5200, L500.3400, L100.0100 ####[facility] [address] [place], [address] Serum or plasma albumin allan urement (mass/volume)Ordered By: Supa Brumfield on 01-10-2025 Albumin [Mass/Vol] 2.9 g/dL Low 3.2-5.0 [facility] Comment on above: Performed By: #### L 500.2500, L501.2300, L501.5200, L500.3400, L100.0100 ####[facility] [address] [place], [place], [address] Serum or plasma alkaline massimo sphatase measurementOrdered By: Supa Brumfield on 01-10-2025 ALP [Catalytic activity/Vol] 71 U/L 45-117 [facility] Total proteinOrdered By: Belinda Brumfield on 01-10-2025 Protein [Mass/Vol] 7.0 g/dL 6.4-8.2 [facility] Abdomen Limitedon 01-09-2025 Abdomen Limited Normal [facility] Albumin to globulin ratioOrd ered By: Supa Brumfield on 01-09-2025 Albumin/Globulin [Mass ratio] 0.7 {ratio} Low 0.9-2.4 [facility] Anaerobic cultureOrdered By: Supa Brumfield on 01-09-2025 Bacteria identified Anaer cx Nom (Unsp spec) No growth in 5 days. [facility] Appearance (Body fld)Ordered By: Supa Brumfield on 01-09-2025 Body Fluid Appearance SL CLDY [facility] Bacteria identified Anaer cx Nom (Unsp spec)Ordered By: Supa Brumfield on 01-09-2025 Anaerobic Culture No growth in 5 days. [facility] Basic Metabolic Profile (BMP )on 01-09-2025 BUN/CRE 31.9 RATIO High 10-20 [facility] Comment on above: Performed By: #### L 001.0705, L504.2610, L500.2500, L506.0400, L501.5200, L500.4100 ####[facility] [address] [place], [address] CA,Total 9.7 mg/dL Normal 8.5-10.1 [facility] Comment on above: Performed By: #### L 001.0705, L504.2610, L500.2500, L506.0400, L501.5200, L500.4100 ####[facility] [address] [place], [address] Chloride [Moles/Vol] 108 mmol/L High 98-107 [facility] Comment on above: Performed By: #### L 001.0705, L504.2610, L500.2500, L506.0400, L501.5200, L500.4100 ####[facility] [address] [place], [address] CO2 [Moles/Vol] 30.0 mmol/L Normal 21.0-32.0 [facility] Comment on above: Performed By: #### L 001.0705, L504.2610, L500.2500, L506.0400, L501.5200, L500.4100 ####[facility] [address] [place], [address] Creatinine [Mass/Vol] 1.19 mg/dL High 0.55-1.02 [facility] Comment on above: Result Comment: The validity of the calculated GFR GFRAA in patients over70 years has not been determined. Clinical correlation isessential. Performed By: #### L 001.0705, L504.2610, L500.2500, L506.0400, L501.5200, L500.4100 ####[facility] [address] [place], [address] ECRCL 37.21 ml/min Normal [facility] Comment on above: Performed By: #### L 001.0705, L504.2610, L500.2500, L506.0400, L501.5200, L500.4100 ####[facility] [address] [place], [address] EST GFR - AA 55 mL/min Low >60 [facility] Comment on above: Result Comment: Afri can [place] GFR Calc Performed By: #### L 001.0705, L504.2610, L500.2500, L506.0400, L501.5200, L500.4100 ####[facility] [address] [place], [address] GAP 3 Low 5-15 [facility] Comment on above: Performed By: #### L 001.0705, L504.2610, L500.2500, L506.0400, L501.5200, L500.4100 ####[facility] [address] [place], [address] GFR/1.73 sq M.predicted among non-blacks MDRD (S/P/Bld) [Vol rate/Area] 46 mL/min/{1.73_m2} Low >60 [facility] Comment on above: Result Comment: Non- GFR Calc Performed By: #### L 001.0705, L504.2610, L500.2500, L506.0400, L501.5200, L500.4100 ####[facility] [address] [place], [address] Glucose [Mass/Vol] 136 mg/dL High 74-106 [facility] Comment on above: Result Comment: Fast ing Glucose result greater than or equal to 126 mg/dLsuggests DIABETES MELLITUS per A.D.A. criteria. Performed By: #### L 001.0705, L504.2610, L500.2500, L506.0400, L501.5200, L500.4100 ####[facility] [address] [place], [address] Potassium [Moles/Vol] 4.4 mmol/L Normal 3.5-5.1 [facility] Comment on above: Performed By: #### L 001.0705, L504.2610, L500.2500, L506.0400, L501.5200, L500.4100 ####[facility] [address] [place], [address] Sodium [Moles/Vol] 141 mmol/L Normal 136-145 [facility] Comment on above: Performed By: #### L 001.0705, L504.2610, L500.2500, L506.0400, L501.5200, L500.4100 ####[facility] [address] [place], [address] Urea nitrogen [Mass/Vol] 38 mg/dL High 7-18 [facility] Comment on above: Performed By: #### L 001.0705, L504.2610, L500.2500, L506.0400, L501.5200, L500.4100 ####[facility] [address] [place], [address] Body fluid appearance (nomin al result)Ordered By: Supa Brumfield on 01-09-2025 Appearance (Body fld) SL CLDY [facility] Body fluid color determinati onOrdered By: Supa Brumfield on 01-09-2025 Color (Body fld) LT YEL [facility] Body fluid cultureOrdered By : Supa Brumfield on 01-09-2025 Body Fluid Culture No growth aerobically. [facility] Body fluid leukocytes count (number/volume)Ordered By: Supa Brumfield on 01-09-2025 WBC (Body fld) [#/Vol] 0.321 10*3/uL [facility] Body fluid lymphocytes/100 l eukocytesOrdered By: Supa Brumfield on 01-09-2025 Lymphocytes/100 WBC (Body fld) 69 % [facility] Body fluid macrophage countO rdered By: Supa Brumfield on 01-09-2025 Macrophages (Body fld) [#/Vol] 14 % [facility] Body fluid mononuclear cell countOrdered By: Supa Brumfield on 01-09-2025 Body Fluid Mononuclear WBCs 0.300 10^3/uL [facility] Body fluid mononuclear cell percentageOrdered By: Supa Brumfield on 01-09-2025 Mononuclear cells/100 WBC (Body fld) 93.5 % [facility] Body fluid other cell count as percentage of leukocytesOrdered By: Supa Brumfield on 01-09-2025 Other cells/100 WBC (Body fld) 1 % [facility] Body fluid segmented neutrop hils count (number/volume)Ordered By: Supa Brumfield on 01-09-2025 Segmented neutrophils (Body fld) [#/Vol] 12 % [facility] CBC W/Diff, Automatedon 12-225 Absolute Lymph 0.81 X10 3/uL Low 0.83-4.51 [facility] Comment on above: Performed By: #### L 501.9985, L100.0100, L501.2300 ####[facility] [address] [place], [address] Absolute Neut 5.8 X10 3/uL Normal 2.0-7.7 [facility] Comment on above: Performed By: #### L 501.9985, L100.0100, L501.2300 ####[facility] [address] [place], [address] Basophils/100 WBC (Bld) 1.1 % High 0-1 [facility] Comment on above: Performed By: #### L 501.9985, L100.0100, L501.2300 ####[facility] [address] [place], [address] Eosinophils/100 WBC (Bld) 3.6 % Normal 0-5 [facility] Comment on above: Performed By: #### L 501.9985, L100.0100, L501.2300 ####[facility] [address] [place], [address] Erythrocyte distribution width (RBC) [Ratio] 16.0 % High 11.6-14.6 [facility] Comment on above: Performed By: #### L 501.9985, L100.0100, L501.2300 ####[facility] [address] [place], [address] Hematocrit (Bld) [Volume fraction] 39.4 % Normal 37-47 [facility] Comment on above: Performed By: #### L 501.9985, L100.0100, L501.2300 ####[facility] [address] [place], [address] Hemoglobin (Bld) [Mass/Vol] 12.2 g/dL Normal 12.0-15.0 [facility] Comment on above: Performed By: #### L 501.9985, L100.0100, L501.2300 ####[facility] [address] [place], [address] IG% 0.400 Normal 0.0-0.9 [facility] Comment on above: Result Comment: IG% - Immature Granulocytes (promyelocytes, myelocytes andmetamyelocytes) > 1% indicates that a LEFT SHIFT is Present. Performed By: #### L 501.9985, L100.0100, L501.2300 ####[facility] [address] [place], [address] Lymphocytes/100 WBC (Bld) 10.8 % Low 19-41 [facility] Comment on above: Performed By: #### L 501.9985, L100.0100, L501.2300 ####[facility] [address] [place], [address] MCH (RBC) [Entitic mass] 28.3 pg Normal 27.0-32.0 [facility] Comment on above: Performed By: #### L 501.9985, L100.0100, L501.2300 ####[facility] [address] [place], [address] MCHC (RBC) [Mass/Vol] 31.0 g/dL Low 32-36 [facility] Comment on above: Performed By: #### L 501.9985, L100.0100, L501.2300 ####[facility] [address] [place], [address] MCV (RBC) [Entitic vol] 91.4 fL Normal 81-99 [facility] Comment on above: Performed By: #### L 501.9985, L100.0100, L501.2300 ####[facility] [address] [place], [address] Monocytes/100 WBC (Bld) 7.3 % Normal 0-10 [facility] Comment on above: Performed By: #### L 501.9985, L100.0100, L501.2300 ####[facility] [address] [place], [address] Neutrophils/100 WBC (Bld) 76.8 % High 47-70 [facility] Comment on above: Performed By: #### L 501.9985, L100.0100, L501.2300 ####[facility] [address] [place], [address] Nucleated RBC (Bld) [#/Vol] 0 10*3/uL Normal 0-5 [facility] Comment on above: Performed By: #### L 501.9985, L100.0100, L501.2300 ####[facility] [address] [place], [address] Platelet mean volume (Bld) [Entitic vol] 10.1 fL Normal 6.2-12.0 [facility] Comment on above: Performed By: #### L 501.9985, L100.0100, L501.2300 ####[facility] [address] [place], [address] Platelets (Bld) [#/Vol] 275 10*3/uL Normal 150-450 [facility] Comment on above: Performed By: #### L 501.9985, L100.0100, L501.2300 ####[facility] [address] [place], [address] RBC (Bld) [#/Vol] 4.31 10*6/uL Normal 4.2-5.4 [facility] Comment on above: Performed By: #### L 501.9985, L100.0100, L501.2300 ####[facility] [address] [place], [address] RDW SD 53.1 fl High 35.1-43.9 [facility] Comment on above: Performed By: #### L 501.9985, L100.0100, L501.2300 ####[facility] [address] [place], [address] WBC (Bld) [#/Vol] 7.5 10*3/uL Normal 4.4-11.0 [facility] Comment on above: Performed By: #### L 501.9985, L100.0100, L501.2300 ####[facility] [address] [place], [address] Cells counted [employer] (Bld/Ti ss) [#]Ordered By: Supa Brumfield on 01-09-2025 Body Fluid Total Cells Counted 0.333 10^3/ul High 0.000-0.00 0 [facility] Comment on above: This is the Total Nu mber of Nucleated Cell Types in the Body Fluid. Chest Insp/Exp 2 Viewon 12-22 Chest Insp/Exp 2 View Normal [facility] Color (Body fld)Ordered By: Supa Brumfield on 01-09-2025 Body Fluid Color LT YEL [facility] Consultation - Cardiologyon 01-09-2025 Consultation - Cardiology Normal [facility] Cytology report Cyto stain D oc (Body fld)Ordered By: Supa Brumfield on 01-09-2025 Miscellaneous Cytology SEE PATHOLOGY REPORT [facility] Comment on above: Specimen submitted t o Anatomical Pathology Department for testing. Cytology report of Body flui d Cyto stainOrdered By: Supa Brumfield on 01-09-2025 Cytology report Cyto stain Doc (Body fld) SEE PATHOLOGY REPORT [facility] Comment on above: Specimen submitted t o Anatomical Pathology Department for testing. Cytology, Body Fluid / CSFon 01-09-2025 CYTOLOGY,BF/CSF SEE PATHOLOGY REPORT Normal [facility] Comment on above: Result Comment: Spec imen submitted to Anatomical Pathology Department fortesting. Performed By: #### M 100.4001, L350.1000, M100.2000, M100.2900, L200.0200 ####[facility] [address] [place], [address] Direct serum free thyroxine (FT4) measurementOrdered By: Supa Brumfield on 01-09-2025 Free T4 [Mass/Vol] 1.21 ng/dL 0.76-1.46 [facility] Echo Completeon 01-09-2025 Echo Complete Normal [facility] Glucose, Body Fluidon 2024 GLU,BF 142 mg/dL High 40-70 [facility] Comment on above: Performed By: #### L 503.0300, L504.0250, L503.0100 ####[facility] [address] [place], [address] Gram stainOrdered By: Bunny Brumfield on 01-09-2025 Microscopic observation Gram stain Nom (Unsp spec) [facility] Hemoglobin A1con 01-09-2025 HbA1c (Bld) [Mass fraction] 6.7 % High 3.8-5.6 [facility] Comment on above: Result Comment: Norm al < 5.7 % Prediabetic 5.7 - 6.4 % Diabetic >or= 6.5 % Please note range changes. Performed By: #### L 501.9985, L100.0100, L501.2300 ####[facility] [address] [place], [place], [id number] Hemoglobin A1c percentageOrd ered By: Supa Brumfield on 01-09-2025 HbA1c (Bld) [Mass fraction] 6.7 % High 3.8-5.6 [facility] Comment on above: Normal < 5.7 % Predi abetic 5.7 - 6.4 % Diabetic >or= 6.5 % Please note range changes. High density lipoprotein (HD L) measurementOrdered By: Supa Brumfield on 01-09-2025 Cholesterol in HDL [Mass/Vol] 74 mg/dL >40 [facility] Comment on above: The drugs N-Acetylcy steine and Metamizole may falsely depress this assay. Reference Range HDL <40 mg/dL Low HDL Cholesterol HDL >or= 60 mg/dL High HDL Cholesterol LDHon 01-09-2025 LDH 160 U/L Normal 84-246 [facility] Comment on above: Performed By: #### L 001.0705, L504.2610, L500.2500, L506.0400, L501.5200, L500.4100 ####[facility] [address] [place], [address] LDH,Body Fluidon 01-09-2025 LDH,BF 51 Units/L Normal Not Establ. [facility] Comment on above: Performed By: #### L 503.0300, L504.0250, L503.0100 ####[facility] [address] [place], [address] Lactate dehydrogenase (LDH) measurementOrdered By: Supa Brumfield on 01-09-2025 LDH [Catalytic activity/Vol] 160 U/L 84-246 [facility] Lipid Profileon 01-09-2025 Cholesterol [Mass/Vol] 118 mg/dL Normal 200 [facility] Comment on above: Result Comment: <200 mg/dL Desirable 200-240 mg/dL Borderline >240 mg/dL High Risk Performed By: #### L 001.0705, L504.2610, L500.2500, L506.0400, L501.5200, L500.4100 ####[facility] [address] [place], [address] Cholesterol in HDL [Mass/Vol] 74 mg/dL Normal [facility] Comment on above: Result Comment: The drugs N-Acetylcysteine and Metamizole may falselydepress this assay. Reference Range HDL <40 mg/dL Low HDL Cholesterol HDL >or= 60 mg/dL High HDL Cholesterol Performed By: #### L 001.0705, L504.2610, L500.2500, L506.0400, L501.5200, L500.4100 ####[facility] [address] [place], [address] Cholesterol in LDL [Mass/Vol] 27 mg/dL Normal 0-130 [facility] Comment on above: Performed By: #### L 001.0705, L504.2610, L500.2500, L506.0400, L501.5200, L500.4100 ####[facility] [address] [place], [address] Cholesterol in VLDL [Mass/Vol] 17 mg/dL Normal 5-40 [facility] Comment on above: Performed By: #### L 001.0705, L504.2610, L500.2500, L506.0400, L501.5200, L500.4100 ####[facility] [address] [place], [address] Triglyceride [Mass/Vol] 86 mg/dL Normal [facility] Comment on above: Result Comment: The drugs N-Acetylcysteine and Metamizole may falselydepress this assay.Serum Triglycerides Reference Interval Normal <150 mg/dL Borderline high 150 - 199 mg/dL High 200 - 499 mg/dL Very High > or = 500 mg/dL Performed By: #### L 001.0705, L504.2610, L500.2500, L506.0400, L501.5200, L500.4100 ####[facility] [address] [place], [address] Low density lipoprotein (LDL ) cholesterol measurementOrdered By: Supa Brumfield on 01-09-2025 Cholesterol in LDL [Mass/Vol] 27 mg/dL 0-130 [facility] Lymphocytes/100 WBC (Body fl d)Ordered By: Supa Brumfield on 01-09-2025 Body Fluid Lymphocytes 69 % [facility] Macrophages (Body fld) [#/Vo l]Ordered By: Supa Brumfield on 01-09-2025 Body Fluid Macrophages 14 % [facility] Magnesiumon 01-09-2025 Magnesium [Mass/Vol] 2.0 mg/dL Normal 1.6-2.6 [facility] Comment on above: Performed By: #### L 001.0705, L504.2610, L500.2500, L506.0400, L501.5200, L500.4100 ####[facility] [address] [place], [address] Monocyte detectionOrdered By : Supa Brumfield on 01-09-2025 Body Fluid Monocytes 4 % [facility] Monocytes/100 WBC (Bld) 4 % [facility] Mononuclear cells/100 WBC (B henry fld)Ordered By: Supa Brumfield on 01-09-2025 Body Fluid Mononuclear WBCs (%) 93.5 % [facility] No Panel InformationOrdered By: Supa Brumfield on 01-09-2025 Body Fluid Comment 2 SEE COMMENT [facility] Body Fluid RBC 1290 /mm3 [facility] Operative Reporton Operative Report Normal [facility] Other cells/100 WBC (Body fl d)Ordered By: Supa Brumfield on 01-09-2025 Body Fluid Other Cells 1 % [facility] Pathologist interpretation ( Body fld) [Interp]Ordered By: Supa Brumfield on 01-09-2025 Body Fluid Pathologist Comment Reviewed [facility] Comment on above: Previous reported re sult: May follow Edited by: OSCAR on 01/10/25:1421Negative for malignant cells.PLEASE ALSO REFER TO CYTOLOGY REPORT Dwayne Luna M.D. 01/10/25 AMENDED REPORT 01/10/251420 PATH COMM/BF previously reported as: May follow Pathologist interpretation o f Body fluid testsOrdered By: Supa Brumfield on 01-09-2025 Pathologist interpretation (Body fld) [Interp] Reviewed [facility] Comment on above: Previous reported re sult: May follow Edited by: OSCAR on 01/10/25:1421Negative for malignant cells.PLEASE ALSO REFER TO CYTOLOGY REPORT Dwayne Luna M.D. 01/10/25 AMENDED REPORT 01/10/25 142 PATH COMM/BF previously reported as: May follow Phosphoruson 01-09-2025 Phosphate [Mass/Vol] 4.1 mg/dL Normal 2.5-4.9 [facility] Comment on above: Performed By: #### L 501.9985, L100.0100, L501.2300 ####[facility] [address] [place], [address] Polymorphonuclear (PMN) leuk ocyte countOrdered By: Supa Brumfield on 01-09-2025 Body Fluid Polynuclear WBCs (%) 6.5 % [facility] Protein, Body Fluidon 2024 Protein [Mass/Vol] 2.5 g/dL Normal Not Establ. [facility] Comment on above: Performed By: #### L 503.0300, L504.0250, L503.0100 ####[facility] [address] [place], [address] Protein, Totalon 01-09-2025 Albumin/Globulin [Mass ratio] 0.7 {ratio} Low 0.9-2.4 [facility] Comment on above: Performed By: #### L 001.0705, L504.2610, L500.2500, L506.0400, L501.5200, L500.4100 ####[facility] [address] [place], [address] Globulin (S) [Mass/Vol] 4.4 g/dL High 2.2-4.2 [facility] Comment on above: Performed By: #### L 001.0705, L504.2610, L500.2500, L506.0400, L501.5200, L500.4100 ####[facility] [address] [place], [address] T PROT 7.5 g/dL Normal 6.4-8.2 [facility] Comment on above: Performed By: #### L 001.0705, L504.2610, L500.2500, L506.0400, L501.5200, L500.4100 ####[facility] [address] [place], [address] Segmented neutrophils (Body fld) [#/Vol]Ordered By: Supa Brumfield on 01-09-2025 Body Fluid Neutrophils 12 % [facility] Serum or plasma cholesterol measurement (mass/volume)Ordered By: Supa Brumfield on 01-09-2025 Cholesterol [Mass/Vol] 118 mg/dL <200 [facility] Comment on above: <200 mg/dL Desirable 200-240 mg/dL Borderline >240 mg/dL High Risk Special Stain Group IIon Special Stain Group II Normal [facility] Comment on above: Performed By: #### P SSII ####[facility] [address] [place], [place], [id number] Specimen source Nom (Body fl d)Ordered By: Supa Brumfield on 01-09-2025 Body Fluid Source PLEURAL FLUID [facility] Specimen source identificati on of body fluidOrdered By: Supa Brumfield on 01-09-2025 Specimen source Nom (Body fld) PLEURAL FLUID [facility] T4 Free Directon 01-09-2025 T4 FREE DIRECT 1.21 ng/dL Normal 0.76-1.46 [facility] Comment on above: Performed By: #### L 001.0705, L504.2610, L500.2500, L506.0400, L501.5200, L500.4100 ####[facility] [address] [place], [place], [id number] Total cell countOrdered By: Supa Brumfield on 01-09-2025 Cells counted Molgen (Bld/Tiss) [#] 0.333 10^3/ul High 0.000-0.00 0 [facility] Comment on above: This is the Total Nu mber of Nucleated Cell Types in the Body Fluid. Triglycerides measurementOrd ered By: Supa Brumfield on 01-09-2025 Triglyceride [Mass/Vol] 86 mg/dL <199 [facility] Comment on above: The drugs N-Acetylcy steine and Metamizole may falsely depress this assay.Serum Triglycerides Reference Interval Normal <150 mg/dL Borderline high 150 - 199 mg/dL High 200 - 499 mg/dL Very High > or = 500 mg/dL Very low density lipoprotein (VLDL) cholesterol measurementOrdered By: Supa Brumfield on 01-09-2025 Very low density lipoprotein (VLDL) cholesterol measurement 17 mg/dL 5-40 [facility] VLDL Cholesterol 17 mg/dL 5-40 [facility] WBC (Body fld) [#/Vol]Ordere d By: Supa Brumfield on 01-09-2025 Body Fluid WBC 0.321 10^3/uL [facility] Body Fluid Polynuclear WBCs (#) 0.021 10^3/uL [facility] WBC body fluidOrdered By: Fanny Brumfield on 01-09-2025 WBC (Body fld) [#/Vol] 0.021 10*3/uL [facility] Activated partial thrombopla stin time (aPTT) in platelet poor plasma by coagulation aOrdered By: Jey Madrid on 01-08-2025 aPTT Coag (PPP) [Time] 28.0 s 24.1-36.2 [facility] BNP (brain natriuretic pepti de measurement)Ordered By: Jey Madrid on 01-08-2025 Natriuretic peptide B (Bld) [Mass/Vol] 230.5 pg/mL High 0-100 [facility] BNP,B-Type NATRIURETIC PEPTI [place] 01-08-2025 Natriuretic peptide B (Bld) [Mass/Vol] 230.5 pg/mL High 0-100 [facility] Comment on above: Performed By: #### L 500.2500, L300.4310, L100.0100, L300.3900, L501.9520, L501.4020, L503.6620 ####[facility] [address] [place], [place], [id number] Basic Metabolic Profile (BMP )on 01-08-2025 BUN/CRE 29.2 RATIO High 10-20 [facility] Comment on above: Order Comment: 'TROP ' Serial specimen #1, #2 or #3: 1 Performed By: #### L 500.2500, L300.4310, L100.0100, L300.3900, L501.9520, L501.4020, L503.6620 ####[facility] [address] [place], [address] CA,Total 10.1 mg/dL Normal 8.5-10.1 [facility] Comment on above: Order Comment: 'TROP ' Serial specimen #1, #2 or #3: 1 Performed By: #### L 500.2500, L300.4310, L100.0100, L300.3900, L501.9520, L501.4020, L503.6620 ####[facility] [address] [place], [address] Chloride [Moles/Vol] 105 mmol/L Normal 98-107 [facility] Comment on above: Order Comment: 'TROP ' Serial specimen #1, #2 or #3: 1 Performed By: #### L 500.2500, L300.4310, L100.0100, L300.3900, L501.9520, L501.4020, L503.6620 ####[facility] [address] [place], [address] CO2 [Moles/Vol] 23.0 mmol/L Normal 21.0-32.0 [facility] Comment on above: Order Comment: 'TROP ' Serial specimen #1, #2 or #3: 1 Performed By: #### L 500.2500, L300.4310, L100.0100, L300.3900, L501.9520, L501.4020, L503.6620 ####[facility] [address] [place], [address] Creatinine [Mass/Vol] 1.37 mg/dL High 0.55-1.02 [facility] Comment on above: Order Comment: 'TROP ' Serial specimen #1, #2 or #3: 1 Result Comment: The validity of the calculated GFR GFRAA in patients over70 years has not been determined. Clinical correlation isessential. Performed By: #### L 500.2500, L300.4310, L100.0100, L300.3900, L501.9520, L501.4020, L503.6620 ####[facility] [address] [place], [address] ECRCL 33.72 ml/min Normal [facility] Comment on above: Order Comment: 'TROP ' Serial specimen #1, #2 or #3: 1 Performed By: #### L 500.2500, L300.4310, L100.0100, L300.3900, L501.9520, L501.4020, L503.6620 ####[facility] [address] [place], [address] EST GFR - AA 47 mL/min Low >60 [facility] Comment on above: Order Comment: 'TROP ' Serial specimen #1, #2 or #3: 1 Result Comment: Afri can [place]ian GFR Calc Performed By: #### L 500.2500, L300.4310, L100.0100, L300.3900, L501.9520, L501.4020, L503.6620 ####[facility] [address] [place], [address] GAP 12 Normal 5-15 [facility] Comment on above: Order Comment: 'TROP ' Serial specimen #1, #2 or #3: 1 Performed By: #### L 500.2500, L300.4310, L100.0100, L300.3900, L501.9520, L501.4020, L503.6620 ####[facility] [address] [place], [address] GFR/1.73 sq M.predicted among non-blacks MDRD (S/P/Bld) [Vol rate/Area] 39 mL/min/{1.73_m2} Low >60 [facility] Comment on above: Order Comment: 'TROP ' Serial specimen #1, #2 or #3: 1 Result Comment: Non- GFR Calc Performed By: #### L 500.2500, L300.4310, L100.0100, L300.3900, L501.9520, L501.4020, L503.6620 ####[facility] [address] [place], [address] Glucose [Mass/Vol] 145 mg/dL High 74-106 [facility] Comment on above: Order Comment: 'TROP ' Serial specimen #1, #2 or #3: 1 Result Comment: Fast ing Glucose result greater than or equal to 126 mg/dLsuggests DIABETES MELLITUS per A.D.A. criteria. Performed By: #### L 500.2500, L300.4310, L100.0100, L300.3900, L501.9520, L501.4020, L503.6620 ####[facility] [address] [place], [address] Potassium [Moles/Vol] 4.0 mmol/L Normal 3.5-5.1 [facility] Comment on above: Order Comment: 'TROP ' Serial specimen #1, #2 or #3: 1 Performed By: #### L 500.2500, L300.4310, L100.0100, L300.3900, L501.9520, L501.4020, L503.6620 ####[facility] [address] [place], [address] Sodium [Moles/Vol] 140 mmol/L Normal 136-145 [facility] Comment on above: Order Comment: 'TROP ' Serial specimen #1, #2 or #3: 1 Performed By: #### L 500.2500, L300.4310, L100.0100, L300.3900, L501.9520, L501.4020, L503.6620 ####[facility] [address] [place], [address] Urea nitrogen [Mass/Vol] 40 mg/dL High 7-18 [facility] Comment on above: Order Comment: 'TROP ' Serial specimen #1, #2 or #3: 1 Performed By: #### L 500.2500, L300.4310, L100.0100, L300.3900, L501.9520, L501.4020, L503.6620 ####[facility] [address] [place], [address] Body fluid lactate dehydroge nase (LDH) measurementOrdered By: Supa Brumfield on 01-08-2025 Body Fluid Lactate Dehydrogenase 51 Units/L Not Establ. [facility] Body fluid total protein trisha surementOrdered By: Supa Brumfield on 01-08-2025 Protein (Body fld) [Mass/Vol] 2.5 g/dL Not Establ. [facility] CBC W/Diff, Automatedon 12-22 Absolute Lymph 1.24 X10 3/uL Normal 0.83-4.51 [facility] Comment on above: Performed By: #### L 500.2500, L300.4310, L100.0100, L300.3900, L501.9520, L501.4020, L503.6620 ####[facility] [address] [place], [address] Absolute Neut 6.2 X10 3/uL Normal 2.0-7.7 [facility] Comment on above: Performed By: #### L 500.2500, L300.4310, L100.0100, L300.3900, L501.9520, L501.4020, L503.6620 ####[facility] [address] [place], [address] Basophils/100 WBC (Bld) 1.5 % High 0-1 [facility] Comment on above: Performed By: #### L 500.2500, L300.4310, L100.0100, L300.3900, L501.9520, L501.4020, L503.6620 ####[facility] [address] [place], [address] Eosinophils/100 WBC (Bld) 3.9 % Normal 0-5 [facility] Comment on above: Performed By: #### L 500.2500, L300.4310, L100.0100, L300.3900, L501.9520, L501.4020, L503.6620 ####[facility] [address] [place], [address] Erythrocyte distribution width (RBC) [Ratio] 16.0 % High 11.6-14.6 [facility] Comment on above: Performed By: #### L 500.2500, L300.4310, L100.0100, L300.3900, L501.9520, L501.4020, L503.6620 ####[facility] [address] [place], [address] Hematocrit (Bld) [Volume fraction] 41.3 % Normal 37-47 [facility] Comment on above: Performed By: #### L 500.2500, L300.4310, L100.0100, L300.3900, L501.9520, L501.4020, L503.6620 ####[facility] [address] [place], [address] Hemoglobin (Bld) [Mass/Vol] 12.9 g/dL Normal 12.0-15.0 [facility] Comment on above: Performed By: #### L 500.2500, L300.4310, L100.0100, L300.3900, L501.9520, L501.4020, L503.6620 ####[facility] [address] [place], [address] IG% 0.600 Normal 0.0-0.9 [facility] Comment on above: Result Comment: IG% - Immature Granulocytes (promyelocytes, myelocytes andmetamyelocytes) > 1% indicates that a LEFT SHIFT is Present. Performed By: #### L 500.2500, L300.4310, L100.0100, L300.3900, L501.9520, L501.4020, L503.6620 ####[facility] [address] [place], [address] Lymphocytes/100 WBC (Bld) 14.4 % Low 19-41 [facility] Comment on above: Performed By: #### L 500.2500, L300.4310, L100.0100, L300.3900, L501.9520, L501.4020, L503.6620 ####[facility] [address] [place], [address] MCH (RBC) [Entitic mass] 28.5 pg Normal 27.0-32.0 [facility] Comment on above: Performed By: #### L 500.2500, L300.4310, L100.0100, L300.3900, L501.9520, L501.4020, L503.6620 ####[facility] [address] [place], [address] MCHC (RBC) [Mass/Vol] 31.2 g/dL Low 32-36 [facility] Comment on above: Performed By: #### L 500.2500, L300.4310, L100.0100, L300.3900, L501.9520, L501.4020, L503.6620 ####[facility] [address] [place], [address] MCV (RBC) [Entitic vol] 91.2 fL Normal 81-99 [facility] Comment on above: Performed By: #### L 500.2500, L300.4310, L100.0100, L300.3900, L501.9520, L501.4020, L503.6620 ####[facility] [address] [place], [address] Monocytes/100 WBC (Bld) 7.6 % Normal 0-10 [facility] Comment on above: Performed By: #### L 500.2500, L300.4310, L100.0100, L300.3900, L501.9520, L501.4020, L503.6620 ####[facility] [address] [place], [address] Neutrophils/100 WBC (Bld) 72.0 % High 47-70 [facility] Comment on above: Performed By: #### L 500.2500, L300.4310, L100.0100, L300.3900, L501.9520, L501.4020, L503.6620 ####[facility] [address] [place], [address] Nucleated RBC (Bld) [#/Vol] 0 10*3/uL Normal 0-5 [facility] Comment on above: Performed By: #### L 500.2500, L300.4310, L100.0100, L300.3900, L501.9520, L501.4020, L503.6620 ####[facility] [address] [place], [address] Platelet mean volume (Bld) [Entitic vol] 10.5 fL Normal 6.2-12.0 [facility] Comment on above: Performed By: #### L 500.2500, L300.4310, L100.0100, L300.3900, L501.9520, L501.4020, L503.6620 ####[facility] [address] [place], [address] Platelets (Bld) [#/Vol] 330 10*3/uL Normal 150-450 [facility] Comment on above: Performed By: #### L 500.2500, L300.4310, L100.0100, L300.3900, L501.9520, L501.4020, L503.6620 ####[facility] [address] [place], [address] RBC (Bld) [#/Vol] 4.53 10*6/uL Normal 4.2-5.4 [facility] Comment on above: Performed By: #### L 500.2500, L300.4310, L100.0100, L300.3900, L501.9520, L501.4020, L503.6620 ####[facility] [address] [place], [place], [id number](004) RDW SD 52.7 fl High 35.1-43.9 [facility] Comment on above: Performed By: #### L 500.2500, L300.4310, L100.0100, L300.3900, L501.9520, L501.4020, L503.6620 ####[facility] [address] [place], [address] WBC (Bld) [#/Vol] 8.6 10*3/uL Normal 4.4-11.0 [facility] Comment on above: Performed By: #### L 500.2500, L300.4310, L100.0100, L300.3900, L501.9520, L501.4020, L503.6620 ####[facility] [address] [place], [place], [id number] CNOVon 01-08-2025 CNOV Office Visit (INTMWS ) BLESSING JACKSON I ([id number]) 1940 F Date Time Provider Department 01/08/25 9:00 AM JEANA GUERRA INTMWS During your visit today, we recorded the following information about you: Temperature Pulse Blood pressure Weight 98.1 degrees 114/minute 104/68 100.2 kg Jeana Guerra MD 01/08/2025 6:30 PM Signed Reason for Visit Patient presents with: Sinus Problem: questions sinus infection that started in October has been getting worse. Seen in urgent care 12/22/24. Drainage is clear but thick. Unable to lie down due to increase cough. Abnormal Weight Gain: last true weight was 193lb and currently 221 noted shortness of breath with exertion heart rate elevated and irregular Blessing Jackson is a 82 year old female who presents here today for Above Complaints.. 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 They put her in a Mattie boot and it has helped. For her lipodermatosclerosis she was seeing a vascular doctor at [facility] Dr Warren wolfe who basically said that some possible intervention may be available for vein stripping the traditional way would be with significant complications. So suggested she tried Gordy Carlton for the atypical stropping for venous insufficiency. Dr Shaw started her on Vasculera and her swelling Is def better than before. Dr Kelley tried her on pramipexole substitution gabapentin. but that did not work for her, se of dizziness so She went back to gabapentin. Has balance issues from neuropathy, Diabetes Mellitus related most likely so has been using a type of walker to help her. Last visit we increased the victoza and her sugars are much much better than before she also 5 pounds of weight. HTN: BP uncontrolled today. Recently her amlodipine was increased but that made her too tired. She is taking 2.5 in the morning and 5 mgs in the evening. . She will check the bp for the next week and if more than 135 then go on the amlodipine. Checks BP at home. Compliant with medications. Denies any chest pain, palpitations, SOB, swelling in the feet. Careful with diet to avoid salt, trying to eat more fruits and vegetables, exercises regularly January 08, 2025: Sudden weight gain, of around 30 pounds in 2 weeks, no changes in diet or water intake. Does not have an appetite. Says it started with a sinus infection, when she went to urgent care she had sinus infection, first in October, got better and got worse. Sinuses feel full, and there is a lot of drainage post nasally and she feels very stuffy, can't breathe, mostly clear but was given an abx. Which did not help her symptoms. In addition to the above she has been feeling clumpsy as she has gained around 30 in the past 2 weeks, most of it is in the lower abdomen, her limbs are not affected much. The legs have baseline swelling. She was put on SCDS and that has helped with the pedal insufficiency. No problem-specific Assessment AND Plan notes found for this encounter. PAST MEDICAL HISTORY Diagnosis Date Cardiomegaly Cellulitis Essential hypertension, benign 1979 Generalized osteoarthrosis, unspecified site 1989 HX: breast cancer 2008 surgery at [facility] Lymphedema left leg Malignant neoplasm of upper-outer quadrant of female breast (HCC) 04/03/2009 Other and unspecified hyperlipidemia PVD (peripheral vascular disease) (HCC) Special screening for malignant neoplasms, colon 12/12/2014 Type II or unspecified type diabetes mellitus without mention of complication, not stated as uncontrolled 1992 Unspecified hypothyroidism 1970 PAST SURGICAL HISTORY Procedure Laterality Date ARTHRP ACETBLR/PROX FEM PROSTC AGRFT/ALGRFT 2002 right ARTHRP ACETBLR/PROX FEM PROSTC AGRFT/ALGRFT 02/2012 left ARTHRP KNE CONDYLEANDPLATU MEDIALANDLAT COMPARTMENTS 10/24/2006 left BX BREAST PERC VACUUM/ROTN 02/12/2009 Right COLONOSCOPY 2004 COLONOSCOPY FLX DX W/COLLJ SPEC WHEN PFRMD 12/12/2014 Colonoscopy COLONOSCOPY FLX DX W/COLLJ SPEC WHEN PFRMD 01/03/2020 Colonoscopy DISKECTOMY, LUMBAR, SINGLE SP 10/03/2000 L4-5 with cages per pt report PAST SURGICAL HISTORY OF 03/03/2009 right lumpectomy and sentinel node biopsy - Dr. Reynolds - [facility] PAST SURGICAL HISTORY OF Right 02/20/2013 Right TKA REVISE MEDIAN N/CARPAL TUNNEL SURG Right [facility] - 2019? FAMILY HISTORY P (more content not included)... Normal [facility] Chest 1 View (Portable)on Chest 1 View (Portable) Normal [facility] ECG COMPLETEon 01-08-2025 ECG COMPLETE Ventricular Rate : 1 04 BPM QRS Duration : 146 ms Q-T Interval : 378 ms QTC Calculation(Bazett) : 497 ms Calculated R [place] : -60 degrees Calculated T [place] : -29 degrees ATRIAL FIBRILLATION WITH RAPID VENTRICULAR RESPONSE WITH A COMPETING JUNCTIONAL PACEMAKER LEFT AXIS DEVIATION COMPLETE RIGHT BUNDLE BRANCH BLOCK ABNORMAL ECG Confirmed by MD REECE QARAB ([id number]) on 01/11/2025 3:30:20 PM NAME : BLESSING JACKSON PID : [id number] : 1940 Gender : Female Race : ORD : [id number] Procedure Date : Jan 08 2025 10:02:37 Edit Date : Jan 11 2025 15:30:21 Diagnosis: ATRIAL FIBRILLATION WITH RAPID VENTRICULAR RESPONSE WITH A COMPETING JUNCTIONAL PACEMAKER LEFT AXIS DEVIATION COMPLETE RIGHT BUNDLE BRANCH BLOCK ABNORMAL ECG Confirmed by MD REECE QARAB ([id number]) on 01/11/2025 3:30:20 PM Test Reason : I49.9 Cardiac arrhythmia, unspecified cardiac arrhythmia type Location : 185 : [facility] Overread By : MD REECE QARAB Edited By : MD REECE QARAB Referred By : , Acquired by : Camila Mitchell LPN, Normal [facility] Emergency Department Summary on 01-08-2025 Emergency Department Summary Normal [facility] Glucose, body fluidOrdered B y: Supa Brumfield on 01-08-2025 Body Fluid Glucose 142 mg/dL High 40-70 [facility] H AND P Exam - Hospital[place] 01-08-2025 H&P Exam - Hospitalist Normal [facility] International normalized rat io (INR) calculationOrdered By: Jey Madrid on 01-08-2025 INR Coag (Bld) [Relative time] 1.2 {INR} [facility] L501.4020on 01-08-2025 TROPONIN-I HS 13 pg/mL Normal 3.0-54.0 [facility] Comment on above: Order Comment: 'TROP ' Serial specimen #1, #2 or #3: 1 Result Comment: Edwin haney Note: New Test Units and Gender Specific Reference Ranges. For more information see Policy Stat Procedure [place] High Sensitivity Troponin (TNIH) and attachments. Performed By: #### L 500.2500, L300.4310, L100.0100, L300.3900, L501.9520, L501.4020, L503.6620 ####[facility] [id number] [place], [address] Partial Thromboplast Timeon 01-08-2025 aPTT Coag (Bld) [Time] 28.0 s Normal 24.1-36.2 [facility] Comment on above: Performed By: #### L 500.2500, L300.4310, L100.0100, L300.3900, L501.9520, L501.4020, L503.6620 ####[facility] [id number] [place], [place], [phone](100) Protein (Body fld) [Mass/Vol ]Ordered By: Supa Brumfield on 01-08-2025 Body Fluid Total Protein 2.5 g/dL Not Establ. [facility] Prothrombin Time w/INRon INR Coag (PPP) [Relative time] 1.2 {INR} Normal [facility] Comment on above: Performed By: #### L 500.2500, L300.4310, L100.0100, L300.3900, L501.9520, L501.4020, L503.6620 ####[facility] [id number] [place], [place], [phone] PT Coag (PPP) [Time] 15.1 s High 11.7-14.9 [facility] Comment on above: Performed By: #### L 500.2500, L300.4310, L100.0100, L300.3900, L501.9520, L501.4020, L503.6620 ####[facility] [id number] [place], [address] Prothrombin timeOrdered By: Jey Madrid on 01-08-2025 PT Coag (PPP) [Time] 15.1 s High 11.7-14.9 [facility] Serum or plasma thyroid stim ulating hormone (TSH) measurement (units/volume)Ordered By: Jey Madrid on 01-08-2025 TSH Qn 4.920 uIU/mL High 0.358-3.74 0 [facility] TSH QnOrdered By: Jey campos on 01-08-2025 Thyroid Stimulating Hormone (TSH) 4.920 uIU/mL High 0.358-3.74 0 [facility] Thyroid Stim Hormone (TSH)on 01-08-2025 TSH 4.920 uIU/mL High 0.358-3.74 0 [facility] Comment on above: Order Comment: 'TROP ' Serial specimen #1, #2 or #3: 1 Performed By: #### L 500.2500, L300.4310, L100.0100, L300.3900, L501.9520, L501.4020, L503.6620 ####[facility] [id number] [place], [address] Troponin IOrdered By: Jey johnson on 01-08-2025 Troponin I 13 pg/mL 3.0-54.0 [facility] Comment on above: Please Note: New Abimael t Units and Gender Specific Reference Ranges. For more information see Policy Stat Procedure [place] High Sensitivity Troponin (TNIH) and attachments. Troponin I High Sensitivity 13 pg/mL 3.0-54.0 [facility] Comment on above: Please Note: New Abimael t Units and Gender Specific Reference Ranges. For more information see Policy Stat Procedure [place] High Sensitivity Troponin (TNIH) and attachments. aPTT Coag (PPP) [Time]Ordere d By: Jey Madrid on 01-08-2025 aPTT Coag (Bld) [Time] 28.0 s 24.1-36.2 [facility] CNOVon 12-22-2024 CNOV Office Visit (UCWSTR ) BLESSING JACKSON I ([id number]) 1940 F Date Time Provider Department 12/22/24 1:30 PM MAC CESPEDES [facility] During your visit today, we recorded the following information about you: Temperature Pulse Respiration Blood pressure 97.6 degrees 96/minute 20/minute 142/91 Weight 96.4 kg Mac Cespedes MD 12/22/2024 1:53 PM Signed Patient presents with: Cough: Chest and head congestion x1 month, SOB HPI: Dealing with clear post nasal drainage for 2 months. Feeling worse the last 2 days; worse left sinus pressure, fatigue, and colored/bloody drainage. Positive symptoms: drainage cough, Sinus pressure, Nasal Congestion, Post nasal drainage, Fatigue, Negative symptoms: Shortness of breath, Wheezing, Chest tightness, Chest pain, Sore throat, Fever, Vomiting, Diarrhea, OTC: coricidin cold medicine, fluticasone nasal spray, propping upright Denies exposure to allergen or pet. MEDICATIONS: Current Outpatient Medications Medication Sig fluticasone (FLONASE) 50 mcg/actuation nasal spray Use 2 Sprays in each nostril once daily. Rinse mouth after use. amLODIPine (NORVASC) 5 mg tablet Take 1 tablet by mouth two times a day. atenolol (TENORMIN) 25 mg tablet Take 1 tablet by mouth once daily. gabapentin (NEURONTIN) 300 mg capsule Take 1 capsule by mouth once daily. hydroCHLOROthiazide 25 mg tablet Take 1 tablet by mouth every afternoon. (Patient taking differently: Take 25 mg by mouth once daily.) levothyroxine (SYNTHROID) 100 mcg tablet Take 1 tablet by mouth once daily. liraglutide (VICTOZA) 0.6 mg/ 0.1 ml subcutaneous pen injector Inject 1.8 mg subcutaneously once daily. lisinopril (ZESTRIL) 40 mg tablet Take 1 tablet by mouth once daily. metFORMIN ER (GLUCOPHAGE XR) 500 mg 24 hr tablet Take 2 tablets by mouth once daily. pentoxifylline ER (TRENTAL) 400 mg CR tablet Take 1 tablet by mouth three times a day. simvastatin (ZOCOR) 20 mg tablet Take 1 tablet by mouth daily at bedtime. Insulin Santa [place]sabel, Disposable, (BD ULTRA-FINE MARCELO PEN NEEDLE) 32 gauge x USE ONE NEEDLE FOR EACH DOSE ONCE DAILY diosmin complex no.1 (VASCULERA) 630 mg tab Take 1 tablet by mouth once daily. BIOTIN ORAL Take 5,000 mcg by mouth. betamethasone dipropionate (DIPROSONE) 0.05 % cream Apply to rash on neck once or twice a day as needed. mupirocin (BACTROBAN) 2 % ointment Apply 1 application to affected area twice daily. (Patient taking differently: Apply 1 application to affected area every 12 hours as needed (neuropathy). As needed) blood sugar diagnostic (ONE TOUCH VERIO) test strip Test glucose 1x/daily, 250.00, insulin use: No Lancets (ONE TOUCH DELICA) lancets Test blood sugar(s) 1x/daily. Dx: 250.00. Insulin: No (Patient taking differently: 1 Each as directed. Dx: 250.00) aspirin, enteric coated 81 mg EC tablet Take 81 mg by mouth once daily. acetaminophen (TYLENOL) 500 mg tablet Take 1,000 mg by mouth every 6 hours as needed. multivitamins(DAILY MULTIVITAMIN TAB) Take one(1) tablet daily. semaglutide (OZEMPIC) 0.25 mg or 0.5 mg (2 mg/3 mL) pen Inject 0.5 mg subcutaneously one time a week. triamcinolone acetonide (NASACORT) 55 mcg nasal inhaler Use 2 Sprays in the nose once daily. (Patient not taking: Reported on 08/30/2024) MEDICATION, NON-DATABASE Take by mouth. Vascularum per vascular surgeon. Unknown dose (Patient not taking: Reported on 08/30/2024) No current facility-administered medications for this visit. ALLERGIES: ALLERGIES Allergen Reactions Lovenox [Enoxaparin* Rash, Itching Oxycontin [Oxycodon* Mental Status Change, Other: See Comments sx of a stroke -- disoriented Penicillins Rash, Other: See Comments epidermolysis Codeine GI Upset VITALS: BP 142/91 Pulse 96 Temp 36.4 ?C (97.6 ?F) Resp 20 Wt 96.4 kg (212 lb 8.4 oz) SpO2 97% BMI 40.16 kg/m? PHYSICAL EXAM: GEN: Pleasant, in no acute distress. HEENT: PERRL, EOMI, conjunctiva clear Ears: Hearing aids removed. Cerumen in left canal. RTM without erythema, bulge, or effusion Sinuses: non-tender frontal sinus, non-tender maxillary sinuses; points to left frontal sinus as location of pressure Throat: moist mucous membranes, no erythema, no exudate Neck: supple, no thyromegaly, no lymphadenopathy HEART: regular rate, regular rhythm, no murmurs LUNGS: clear to auscultation, no wheezes or crackles, no increased WOB ASSESSMENT/PLAN: 1. Acute non-recurrent sinusitis, unspecified location - ICD9: 461.9, ICD10: J01.90 History consistent with secondary bacterial sinusitis. - DOXYCYCLINE MONOHYDRATE 100 MG CAPSULE She declines viral testing for COVID/flu/RSV which could also explain her recent worsening. Follow-up with primary care or ear nose and throat if postnasal drainage persists. Mac Cespedes MD Allergies As of Date: 12/22/2024 Noted Allergy Reaction LOVENOX (ENOXAPARIN (more content not included)... Normal [facility] 12-11-2024 [facility] Telephone (INTMWS) BLESSING JACKSON I ([id number]) 1940 F Date Time Provider Department 12/11/24 JEANA GUERRA INTWS During your visit today, we recorded the following information about you: Michelle Medeiros LPN 12/11/2024 4:17 PM Signed Prior Authorization History liraglutide (VICTOZA) 0.6 mg/ 0.1 ml subcutaneous pen injector History View all authorizations for this medication Denied 12/11/2024 4:02 PM Appeal supported: No Note from payer: We cover this drug when our criteria are met. The unmet criteria are: you have tried or cannot use two of the following: Mounjaro, Ozempic, Rybelsus, or Trulicity. This decision was from the Human Non-Preferred GLP-1 [employer]onists and GLP-1/GIP Agonists Pharmacy Coverage Policy at [employer]. Payer: [employer] [phone] Notes Time User Attachment Attachment received from payer. 12/11/2024 4:02 PM Cchs, Rx Priorauth In Document Waiting for Payer Response 12/11/2024 12:19 PM Deadline to reply: December 26, 2024 Sending user: Michelle Medeiros LPN Note to payer: Pt is 84 year old stable with current DM treatment. See office notes and A1c results. Payer: [employer] [phone] Attachment: Document: ePA Attachment liraglutide (VICTOZA) 0.6 mg/ 0.1 ml subcutaneous pen injector 12/11/2024-12:18 PM Nonpreferred GLP1 [employer]onists MPA Standard Prior Auth Michelle Medeiros LPN 12/11/2024 4:17 PM Signed Unfortunately, your coverage or payment under your Medicare Part D benefit for LIRAGLUTIDE 2-ELKIN 18 MG/3 ML was denied. Here?s why we made our decision: We cover this drug when our criteria are met. The unmet criteria are: you have tried or cannot use two of the following: Mounjaro, Ozempic, Rybelsus, or Trulicity. This decision was from the [employer] NonPreferred GLP-1 Agonists and GLP-1/GIP Agonists Pharmacy Coverage Policy at [employer]. Elenita Ponce RN 12/12/2024 3:33 PM Signed [facility] [employer]as Statistical Programmer calls with patient to notify of below. 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 If provider would like to appeal for Victoza instead of changing to formulary prescription phone number is [phone]. BASIL Wray Chitra, MD 12/12/2024 6:23 PM Signed It is great that she is offered ozempic, would the patient like to try that? Would be easier for her Regards, Sheela Ford MD, [facility] 12/13/2024 9:50 AM Signed TC no answer. Left VM to return call. ZANE Dominguez Krystle, BASIL 12/13/2024 3:23 PM Signed Patient returns call and message below reviewed. Patient reports that she would be willing to try the Ozempic. She currently has one month supply of Victoza left. Patient also reports that she has had clear sinus/post-nasal drip since beginning of October and has been taking Coricidin which has helped thin the nasal secretions but she reports at night she is having to sit up to sleep as the drainage goes in the back of her throat and causes her difficulty breathing. Patient has an order for fluticasone nasal spray but was told not to take it while on Coricidin. Patient asking if she could take the fluticasone or if provider has any other recommendations to help her sinuses from draining into the back of her throat at night. Afebrile. Denies SOB, Chest Pain, Wheezing, or any respiratory symptoms. BASIL Wray Joy, APRN.GIL 12/14/2024 9:54 AM Signed Yes the fluticasone nasal spary is fine to start. 2 sprays each nostril before bed. Rinse out your throat after use. Does she want to start ozempic now or wait until finished with her victoza? Thank you Greta Arreola APRN.Isabel Adan LPN 12/14/2024 10:22 AM Signed Called and left message for patient to call office back for update of note below. Isabel Lagos LPN December 14, 2024 10:22 AM Sharon Hadley LPN 12/14/2024 3:19 PM Signed Patient returned call and went over notes below from Greta Arreola ELECTRONIC SEMICONDUCTOR PROCESSOR. Patient said she has 4 weeks of victoza at home. She wants to know what Greta thinks if she should finish it ? She is also asking if she should still be taking the Coricidin HBP soft gels with the Fluticasone nasal spray? Greta Arreola APRN.GIL 12/17/2024 9:15 AM Signed If she needs both of those, they are fine to take at the same time. I would recommend we see if you insurance covers the ozempic first. I have sent in a prescription to your pharmacy. If it is covered an affordable. Then we will start at the 0.5mg dose. Which you will start the day after your last victoza injection and then continue once weekly. You will follow up 4 weeks after starting this and then we will hopefully be able to increase the dose. Thank you Greta Arreola APRN.Mckayla Zhang, BASIL 12/17/2024 4:37 PM Signed Called and left a voicemail for the Patient to call back and a (more content not included)... Normal [facility] CNOVon 10-11-2024 CNOV Office Visit (PODIWS ) BLESSING JACKSON I ([id number]) 1940 F Date Time Provider Department 10/11/24 2:30 PM MIRANDA DE PODIWS During your visit today, we recorded the following information about you: Mckayla Ayala RN 10/11/2024 3:13 PM Signed Patient presents with: Left Foot - Established Patient, Follow Up, Diabetic Foot Care Right Foot - Established Patient, Follow Up, Diabetic Foot Care Patient presents for follow up diabetic foot/nail care. Right big toe has history of ingrowns and is tender. NURIS 03/30/24 Miranda De 10/11/2024 3:13 PM Signed Last saw pcp: 08/30/24 Subjective: Patient presents to clinic c/o painful toenails. They state that the nails are especially painful with shoe gear and pressure. Patient states that nails 1-5 b/l are painful. Patient admits to being diabetic. No other pedal complaints at this time. Patient states no change in medications or medical history since last visit. Objective: Patient presents to clinic ambulating in dress shoes Vasc: DP and PT pulses are palpable bilateral. CFT is less than 5 seconds bilateral. Skin temperature is warm to cool proximal to distal bilateral. There is moderate edema or varicosities noted. Neuro: Protective sensation is intact to the foot and toes when tested with the 5.07 SWM bilateral. Vibratory sensation is decreased at the hallux IPJ bilateral. The hallux is downgoing bilateral. Derm: Nails 1-5 b/l are painful, discolored-yellow, thick, crumbly, dystrophic and with subungal debris. Skin is of normal turgor, texture and hair growth is absent bilateral. There are callus to right 5th toe. No ulcerations, scars, verruca or other lesions noted. Ortho: Muscle strength is 5/5 for all pedal groups tested. Ankle joint DF is decreased with the knee extended with no pain or crepitus noted. 1st MPJ ROM is decreased bilateral. Assessment: (B35.1) Onychomycosis (primary encounter diagnosis) (M79.674) Pain in toe of right foot (M79.675) Pain in toe of left foot (E11.42) Type 2 diabetes mellitus with peripheral neuropathy (HCC) (I87.2) Venous insufficiency (L84) Callus of foot Plan: Patient was seen and evaluated. Nails 1-5 bilateral were debrided in length and thickness. Callus to right 5th toe reduced with dremmel. Patient was instructed on the continued importance of diabetic foot care along with proper diet and keeping their blood sugar under control to prevent complications. Stressed the importance of avoiding barefoot walking, wearing good shoes and inspection of feet Patient is to RTC in 3-4 months. SHITAL Sanchez Matthew 10/11/2024 3:12 PM Signed Diabetes Foot Care Instructions When you have diabetes, proper foot care is very important. Poor foot care may lead to amputation of a foot or leg. As a person with diabetes, you are more vulnerable to foot problems, because diabetes can damage your nerves and reduce blood flow to your feet. Here are some diabetes foot care tips to follow: Wash and Dry Your Feet Daily Use mild soaps Use warm water Pat your skin dry; do not rub. Thoroughly dry your feet. After washing, use lotion on your feet to prevent cracking. Do not put lotion between your toes. Examine Your Feet Each Day Check the tops and bottoms of your feet. Have someone else look at your feet if you cannot see them. Check for dry, cracked skin. Look for blisters, cuts, scratches, or other sores. Check for redness, increased warmth, or tenderness when touching any area of your feet. Check for ingrown toenails, corns, and calluses. If you get a blister or sore from your shoes, do not pop it. Apply a bandage and wear a different pair of shoes. Take Care of Your Toenails Cut toenails after bathing, when they are soft. Cut toenails straight across and smooth with a nail file. Avoid cutting into the corners of toes. Do not cut cuticles. If you have neuropathy (or decreased sensation in your feet) a events director should always cut your toenails. Be Careful When Exercising Walk and exercise in comfortable shoes. Do not exercise when you have open sores on your feet. Protect Your Feet With Shoes and Socks Never go barefoot. Always protect your feet by wearing shoes or hard-soled slippers or footwear. Avoid shoes with high heels and pointed toes. Avoid shoes that expose your toes or heels (such as open-toed shoes or sandals). These types of shoes increase your risk for injury and potential infections. Try on new footwear with the type of socks you usually wear. Do not wear new shoes for more than an hour at a time. Change your socks daily. Look and feel inside your shoes before putting them on to make sure there are no foreign objects or rough areas. Avoid tight socks. Wear natural-fiber socks (cotton, wool, or a cotton-wool blend). Wear special shoes if your (more content not included)... Normal [facility] MAMMO SCREENING WITH DAVION BI LATERALon 09-10-2024 MAMMO SCREENING WITH DAVION BILATERAL EXAM: MAMMO SCREENING WITH DAVION BILATERAL, 09/10/2024 11:43 AM CLINICAL INDICATIONS: Screening. 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 COMPARISON: September 05, 2023, August 30, 2022, August 13, 2021, July 31, 2020 TECHNIQUE: 3-D MLO and CC digital tomosynthesis images were obtained of the bilateral breasts. Synthetic 2-D images were generated from the tomosynthesis data. Computer aided detection was utilized. FINDINGS: Breast Density: The breasts have scattered areas of fibroglandular density. Bilateral benign appearing calcifications are noted. Postoperative and posttreatment changes are present in the right breast. There are no suspicious masses, calcifications, or architectural distortions. IMPRESSION: No mammographic evidence of malignancy. BI-RADS: 2: Benign Recommendation: Routine mammography. Recommendation Laterality: Bilateral The current National Comprehensive Cancer Network and [place] [employer] guidelines recommend women undergo a screening mammogram every year over the age of 40 and continue mammographic screening as long as they are in good health. Screening mammography under age 40 may occur for women who are at increased risk for breast cancer. [facility] Facility: [facility], [address] [place] [address] Table formatting from the original result was not included. MAMMO STANDARD RISK SA SITE BEGIN [place] [address] SA SITE END [facility] MG Breast - bilateral Screen ing 09-10-2024 IMPRESSION: No mammographic evidence of malignancy. BI-RADS: 2: Benign Recommendation: Routine mammography. Recommendation Laterality: Bilateral The current National Comprehensive Cancer Network and [place] [employer] guidelines recommend women undergo a screening mammogram every year over the age of 40 and continue mammographic screening as long as they are in good health. Screening mammography under age 40 may occur for women who are at increased risk for breast cancer. [facility] Facility: [facility], [address] [place] [address] OLOGY EXAM: MAMMO SCREENIN G WITH DAVION BILATERAL, 09/10/2024 11:43 AM CLINICAL INDICATIONS: Screening. 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 COMPARISON: September 05, 2023, August 30, 2022, August 13, 2021, July 31, 2020 TECHNIQUE: 3-D MLO and CC digital tomosynthesis images were obtained of the bilateral breasts. Synthetic 2-D images were generated from the tomosynthesis data. Computer aided detection was utilized. FINDINGS: Breast Density: The breasts have scattered areas of fibroglandular density. Bilateral benign appearing calcifications are noted. Postoperative and posttreatment changes are present in the right breast. There are no suspicious masses, calcifications, or architectural distortions. RADIOLOGY Woo Govea M D - 09/10/2024 EXAM: MAMMO SCREENING WITH DAVION BILATERAL, 09/10/2024 11:43 AM CLINICAL INDICATIONS: Screening. 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 COMPARISON: September 05, 2023, August 30, 2022, August 13, 2021, July 31, 2020 TECHNIQUE: 3-D MLO and CC digital tomosynthesis images were obtained of the bilateral breasts. Synthetic 2-D images were generated from the tomosynthesis data. Computer aided detection was utilized. FINDINGS: Breast Density: The breasts have scattered areas of fibroglandular density. Bilateral benign appearing calcifications are noted. Postoperative and posttreatment changes are present in the right breast. There are no suspicious masses, calcifications, or architectural distortions. IMPRESSION IMPRESSION: No mammographic evidence of malignancy. BI-RADS: 2: Benign Recommendation: Routine mammography. Recommendation Laterality: Bilateral The current National Comprehensive Cancer Network and [place] [employer] guidelines recommend women undergo a screening mammogram every year over the age of 40 and continue mammographic screening as long as they are in good health. Screening mammography under age 40 may occur for women who are at increased risk for breast cancer. [facility] Facility: [facility], [address] [place] [address], [facility] Radiology Study observation (narrative) [facility] MG Breast - bilateral Screen ingOrdered By: Woo Govea on 09-10-2024 [facility] Work Phone: Gracia 09-08-2024 CNPRonald Telephone (INTMWS) BLESSING JACKSON I ([id number]) 1940 F Date Time Provider Department 09/08/24 JEANA GUERRA During your visit today, we recorded the following information about you: Sharon Hadley LPN 09/08/2024 10:05 AM Signed ----- Message from Jeana Guerra MD sent at 09/07/2024 5:35 PM EDT ----- No major concerns with your labs they look stable.' Regards, Sharon Childers MD, LPN 09/08/2024 10:07 AM Signed Phoned patient left message to return call and ask to speak to a nurse. Tomeka Santiago RN 09/10/2024 12:47 PM Signed Pt returned call and given provider's message below with verbalized understanding. Allergies As of Date: 09/08/2024 Noted Allergy Reaction LOVENOX (ENOXAPARIN SODIUM) 04/14/2012 2 - Rash 9 - Itching OXYCONTIN (OXYCODONE) 12/15/2007 1 - Mental Status Change 14 - Other: See Comments Comments: sx of a stroke -- disoriented PENICILLINS 12/15/2007 2 - Rash 14 - Other: See Comments Comments: epidermolysis CODEINE 12/15/2007 8 - GI Upset Date Reviewed: 08/30/2024 Reviewed by: Isabel Lagos LPN - Fully Assessed Reason for Visit: Results [95] Prescriptions as of 09/10/2024 - fluticasone (FLONASE) 50 mcg/actuation nasal spray Use 2 Sprays in each nostril once daily. Rinse mouth after use. - amLODIPine (NORVASC) 5 mg tablet Take 1 tablet by mouth two times a day. - triamcinolone acetonide (NASACORT) 55 mcg nasal inhaler Use 2 Sprays in the nose once daily. - atenolol (TENORMIN) 25 mg tablet Take 1 tablet by mouth once daily. - gabapentin (NEURONTIN) 300 mg capsule Take 1 capsule by mouth once daily. - hydroCHLOROthiazide 25 mg tablet Take 1 tablet by mouth every afternoon. - levothyroxine (SYNTHROID) 100 mcg tablet Take 1 tablet by mouth once daily. - liraglutide (VICTOZA) 0.6 mg/ 0.1 ml subcutaneous pen injector Inject 1.8 mg subcutaneously once daily. - lisinopril (ZESTRIL) 40 mg tablet Take 1 tablet by mouth once daily. - metFORMIN ER (GLUCOPHAGE XR) 500 mg 24 hr tablet Take 2 tablets by mouth once daily. - pentoxifylline ER (TRENTAL) 400 mg CR tablet Take 1 tablet by mouth three times a day. - simvastatin (ZOCOR) 20 mg tablet Take 1 tablet by mouth daily at bedtime. - Insulin Santa [place]sabel, Disposable, (BD ULTRA-FINE MARCELO PEN NEEDLE) 32 gauge x USE ONE NEEDLE FOR EACH DOSE ONCE DAILY - diosmin complex no.1 (VASCULERA) 630 mg tab Take 1 tablet by mouth once daily. - BIOTIN ORAL Take 5,000 mcg by mouth. - MEDICATION, NON-DATABASE Take by mouth. Vascularum per vascular surgeon. Unknown dose - betamethasone dipropionate (DIPROSONE) 0.05 % cream Apply to rash on neck once or twice a day as needed. - mupirocin (BACTROBAN) 2 % ointment Apply 1 application to affected area twice daily. - blood sugar diagnostic (ONE TOUCH VERIO) test strip Test glucose 1x/daily, 250.00, insulin use: No - Lancets (ONE TOUCH DELICA) lancets Test blood sugar(s) 1x/daily. Dx: 250.00. Insulin: No - aspirin, enteric coated 81 mg EC tablet Take 81 mg by mouth once daily. - acetaminophen (TYLENOL) 500 mg tablet Take 1,000 mg by mouth every 6 hours as needed. - multivitamins(DAILY MULTIVITAMIN TAB) Take one(1) tablet daily. Problem List As Of Date 09/08/2024 Noted Resolved Essential hypertension [I10] Hypothyroidism [E03.9] DIABETES MELLITUS TYPE II-UNCOMPL [E11.9] 04/18/2015 Hyperlipidemia [E78.5] GENERAL OSTEOARTHROSIS [M15.9] Abnormal mammogram, unspecified [R92.8] 02/13/2009 08/25/2016 History of cancer of right breast [Z85.3] 04/03/2009 VENOUS INSUFFICIENCY [I87.2] 05/14/2009 08/25/2016 Abdominal pain, unspecified site [R10.9] 10/01/2011 08/25/2016 Left groin pain [R10.32] 11/04/2011 08/25/2016 Osteoarthrosis, unspecified whether generalized*02/06/2012 08/25/2016 Leg edema [R60.0] 03/28/2012 08/25/2016 Obesity, Class III, BMI 40-49.9 (morbid obesity*03/28/2012 02/14/2015 BMI 40.0-44.9, adult (HCC) [Z68.41] 02/21/2014 02/14/2015 Morbid obesity with BMI of 40.0-44.9, adult (HC*02/14/2015 03/18/2022 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*04/18/2015 Lipodermatosclerosis [M79.3] 10/23/2015 Lymphedema [I89.0] 10/23/2015 Microalbuminuria [R80.9] 03/03/2016 Family history of bilateral hip replacements [Z*11/21/2012 03/18/2022 History of total bilateral knee replacement [Z9*11/21/2013 Carpal tunnel syndrome of right wrist [G56.01] 04/13/2018 Carpal tunnel syndrome on right [G56.01] 04/13/2018 05/28/2020 Diabetic polyneuropathy associated with type 2 *05/28/2020 Right wrist pain [M25.531] 09/29/2021 03/18/2022 Arthritis of right hand [M19.041] 09/29/2021 Peripheral venous insufficiency [I87.2] 04/19/2023 Encounter Status:Closed by Tomeka SANTIAGO on 09/10/[address] [facility] CBC panel Auto (Bld)on 09-06 Erythrocyte distribution width (RBC) [Ratio] 16.1 % High 11.5-15.0 [facility] Comment on above: Order Comment: Speci men Type: BLOOD SPECIMENOrdering Facility: [facility] Address: [address] [place] [address] Performed By: #### 5 8410-2 ####[facility] LABCLIA [id number] [facility] [id number] [address] [place] Hematocrit (Bld) [Volume fraction] 42.1 % Normal 36.0-46.0 [facility] Comment on above: Order Comment: Speci men Type: BLOOD SPECIMENOrdering Facility: [facility] Address: [address] [place] [address] Performed By: #### 5 8410-2 ####[facility] LABCLIA [id number] [place] [address] [place] Hemoglobin (Bld) [Mass/Vol] 12.9 g/dL Normal 11.5-15.5 [facility] Comment on above: Order Comment: Speci men Type: BLOOD SPECIMENOrdering Facility: [facility] Address: [address] [place] [address] Performed By: #### 5 8410-2 ####[facility] LABIA [id number] [place] [address] [place] MCH (RBC) [Entitic mass] 27.7 pg Normal 26.0-34.0 [facility] Comment on above: Order Comment: Speci men Type: BLOOD SPECIMENOrdering Facility: [facility] Address: [address] [place] [address] Performed By: #### 5 8410-2 ####[facility] LABIA [id number] [place] [address] [place] MCHC (RBC) [Mass/Vol] 30.6 g/dL Normal 30.5-36.0 [facility] Comment on above: Order Comment: Speci men Type: BLOOD SPECIMENOrdering Facility: [facility] Address: [address] [place] [address] Performed By: #### 5 8410-2 ####[facility] LABIA [id number] [place] [address] [place] MCV (RBC) [Entitic vol] 90.5 fL Normal 80.0-100.0 [facility] Comment on above: Order Comment: Speci men Type: BLOOD SPECIMENOrdering Facility: [facility] Address: [address] [place] [address] Performed By: #### 5 8410-2 ####[facility] LABCLIA [id number] [place] [address] [place] Nucleated RBC (Bld) [#/Vol] 10*3/uL Normal <0.01 [facility] Comment on above: Order Comment: Speci men Type: BLOOD SPECIMENOrdering Facility: [facility] Address: [address] [place] [address] Performed By: #### 5 8410-2 ####[facility] LABCLIA [id number] [place] [address] [place] Platelet mean volume (Bld) [Entitic vol] 11.2 fL Normal 9.0-12.7 [facility] Comment on above: Order Comment: Speci men Type: BLOOD SPECIMENOrdering Facility: [facility] Address: [address] [place] [address] Performed By: #### 5 8410-2 ####[facility] LABCLIA [id number] [place] [address] [place] Platelets (Bld) [#/Vol] 239 10*3/uL Normal 150-400 [facility] Comment on above: Order Comment: Speci men Type: BLOOD SPECIMENOrdering Facility: [facility] Address: [address] [place] [address] Performed By: #### 5 8410-2 ####[facility] LABCLIA [id number] [place] [address] [place] RBC (Bld) [#/Vol] 4.65 10*6/uL Normal 3.90-5.20 [facility] Comment on above: Order Comment: Speci men Type: BLOOD SPECIMENOrdering Facility: [facility] Address: [address] [place] [address] Performed By: #### 5 8410-2 ####[facility] LABCLIA [id number] [address] [address] [place] WBC (Bld) [#/Vol] 7.44 10*3/uL Normal 3.70-11.00 [facility] Comment on above: Order Comment: Speci men Type: BLOOD SPECIMENOrdering Facility: [facility] Address: [address] [place] [address] Performed By: #### 5 8410-2 ####[facility] LABCLIA [id number] [place] [address] [place] Comprehensive metabolic 2000 panelon 09-06-2024 Albumin [Mass/Vol] 3.9 g/dL Normal 3.9-4.[address] [facility] Comment on above: Order Comment: Speci men Type: BLOOD SPECIMENOrdering Facility: [facility] Address: [address] [place] [address] Performed By: #### 2 4331-1, 3015-3, 50382-4 ####[facility] LABIA [id number] [place] [address] [place] ALP [Catalytic activity/Vol] 79 U/L Normal 34-123 [facility] Comment on above: Order Comment: Speci men Type: BLOOD SPECIMENOrdering Facility: [facility] Address: [address] [place] [address] Performed By: #### 2 4331-1, 3015-3, 75358-4 ####[facility] LABCLIA [id number] [place] [address] [place] ALT [Catalytic activity/Vol] 17 U/L Normal 7-38 [facility] Comment on above: Order Comment: Speci men Type: BLOOD SPECIMENOrdering Facility: [facility] Address: [address] [place] [address] Performed By: #### 2 4331-1, 3015-3, 79778-6 ####[facility] LABCLIA [id number] [place] [address] [place] Anion gap [Moles/Vol] 12 mmol/L Normal 8-15 [facility] Comment on above: Order Comment: Speci men Type: BLOOD SPECIMENOrdering Facility: [facility] Address: [address] [place] [address] Performed By: #### 2 4331-1, 301-3, 18131-4 ####[facility] LABCLIA [id number] [place] [address] [place] AST [Catalytic activity/Vol] 23 U/L Normal 13-35 [facility] Comment on above: Order Comment: Speci men Type: BLOOD SPECIMENOrdering Facility: [facility] Address: [address] [place] [address] Performed By: #### 2 4331-1, 3015-3, 94857-8 ####[facility] LABCLIA [id number] [place] [address] [place] Bilirubin [Mass/Vol] 0.4 mg/dL Normal 0.2-1.3 [facility] Comment on above: Order Comment: Speci men Type: BLOOD SPECIMENOrdering Facility: [facility] Address: [address] [place] [address] Performed By: #### 2 4331-1, 3015-3, 94079-0 ####[facility] LABCLIA [id number] [place] [address] [place] Calcium [Mass/Vol] 9.9 mg/dL Normal 8.5-10.[address] [facility] Comment on above: Order Comment: Speci men Type: BLOOD SPECIMENOrdering Facility: [facility] Address: [address] [place] [address] Performed By: #### 2 4331-1, 6-3, 64547-3 ####[facility] LABCLIA [id number] [place] [address] [place] Chloride [Moles/Vol] 104 mmol/L Normal 98-107 [facility] Comment on above: Order Comment: Speci men Type: BLOOD SPECIMENOrdering Facility: [facility] Address: [address] [place], [place] [address] Performed By: #### 2 4331-1, 3016-3, 18770-4 ####[facility] LABCLIA [id number] [place] [address] [place] CO2 [Moles/Vol] 26 mmol/L Normal 22-30 [facility] Comment on above: Order Comment: Speci men Type: BLOOD SPECIMENOrdering Facility: [facility] Address: [address] [place] [address] Performed By: #### 2 4331-1, 3016-3, 49237-0 ####[facility] LABCLIA [id number] [place] [address] [place] Creatinine [Mass/Vol] 1.09 mg/dL High 0.58-0.96 [facility] Comment on above: Order Comment: Speci men Type: BLOOD SPECIMENOrdering Facility: [facility] Address: [address] [place] [address] Performed By: #### 2 4331-1, 3016-3, 56863-0 ####[facility] LABCLIA [id number] [place] [address] [place] Creatinine and Glomerular filtration rate.predicted panel (S/P/Bld) 50 mL/min/1.73m??? Low >=60 [facility] Comment on above: Order Comment: Speci men Type: BLOOD SPECIMENOrdering Facility: [facility] Address: [address] [place] [address] Result Comment: Aura mated Glomerular Filtration Rate (eGFR) is calculated using the 2020 CKD-EPI creatinine equation. This equation utilizes serum creatinine, sex, and age as parameters. The creatinine assay has traceable calibration to isotope dilution-mass spectrometry. Refer to KDIGO guidelines for clinical interpretation. In patients with unstable renal function, e.g. those with acute kidney injury, the eGFR may not accurately reflect actual GFR. Performed By: #### 2 4331-1, 3016-01, ####[facility] LABCLIA [id number] [address] [address] [place] Glucose [Mass/Vol] 110 mg/dL High 74-[address] [facility] Comment on above: Order Comment: Speci men Type: BLOOD SPECIMENOrdering Facility: [facility] Address: [address] [place] [address] Result Comment: The [place] Diabetes Association (ADA) provides guidance for cutoff values for fasting glucose and random glucose. The ADA defines fasting as no caloric intake for at least 8 hours. Fasting plasma glucose results between 100 to 125 mg/dL indicate increased risk for diabetes (prediabetes). Fasting plasma glucose results greater than or equal to 126 mg/dL meet the criteria for diagnosis of diabetes. In the absence of unequivocal hyperglycemia, results should be confirmed by repeat testing. In a patient with classic symptoms of hyperglycemia or hyperglycemic crisis, random plasma glucose results greater than or equal to 200 mg/dL meet the criteria for diagnosis of diabetes. Reference: Standards of Medical Care in Diabetes 2016, [place] [employer]. Diabetes Care. 2016.39(Suppl 1). Performed By: #### 2 4331-1, 3016-01, ####[facility] LABCLIA [id number] [address] [address] [place] Potassium [Moles/Vol] 4.8 mmol/L Normal 3.7-5.1 [facility] Comment on above: Order Comment: My men Type: BLOOD SPECIMENOrdering Facility: [facility] Address: [address] [place] [address] Performed By: #### 2 4331-1, 3016-01, ####[facility] LABCLIA [id number] [address] [address] [place] Protein [Mass/Vol] 7.5 g/dL Normal 6.3-8.[address] [facility] Comment on above: Order Comment: Speci men Type: BLOOD SPECIMENOrdering Facility: [facility] Address: [address] [place] [address] Performed By: #### 2 4331-1, 3016-01, ####[facility] LABCLIA [id number] [address] [address] [place] Sodium [Moles/Vol] 142 mmol/L Normal 136-[address] [facility] Comment on above: Order Comment: Speci men Type: BLOOD SPECIMENOrdering Facility: [facility] Address: [address] [place] [address] Performed By: #### 2 4331-1, 3016-01, ####[facility] LABCLIA [id number] [place] [address] [place] Urea nitrogen [Mass/Vol] 45 mg/dL High 7-21 [facility] Comment on above: Order Comment: Speci men Type: BLOOD SPECIMENOrdering Facility: [facility] Address: [address] [place] [address] Performed By: #### 2 4331-1, 3016-01, ####[facility] LABIA [id number] [place] [address] [place] HbA1c (Bld)on 09-06-2024 Average glucose Estimated from glycated hemoglobin (Bld) [Mass/Vol] 128 mg/dL Normal [facility] Comment on above: Order Comment: Speci men Type: BLOOD SPECIMENOrdering Facility: [facility] Address: [address] [place] [address] Result Comment: eAG: (Estimated average glucose) is a calculated value from HgbA1c and is sales representative girls' apparel of the average blood glucose level in the last 2-3 month period. Performed By: #### 5 5454-3 ####[facility] LABIA [id number] [place] [address] [place] HbA1c (Bld) [Mass fraction] 6.1 % High 4.3-5.6 [facility] Comment on above: Order Comment: Faithsusan flannery Type: BLOOD SPECIMENOrdering Facility: [facility] Address: [address] [place] [address] Result Comment: [place] Diabetes Association guidelines indicate that patients with HgbA1c in the range 5.7-6.4% are at increased risk for development of diabetes, and intervention by lifestyle modification may be beneficial. HgbA1c greater or equal to 6.5% is considered diagnostic of diabetes. Performed By: #### 5 5454-3 ####[facility] LABCLIA [id number] [place] [address] [place] Lipid 1996 panelon 4 Cholesterol [Mass/Vol] 138 mg/dL Normal <200 [facility] Comment on above: Order Comment: My alma delia Type: BLOOD SPECIMENOrdering Facility: [facility] Address: [address] [place] [address] Result Comment: <200 mg/dL, Desirable 200-239 mg/dL, Borderline high >239 mg/dL, High Performed By: #### 2 4331-1, 3015-3, 15383-7 ####[facility] LABCLIA [id number] [address] [place] Cholesterol in HDL [Mass/Vol] 68 mg/dL Normal >39 [facility] Comment on above: Order Comment: Faithsusan flannery Type: BLOOD SPECIMENOrdering Facility: [facility] Address: [address] [place] [address] Result Comment: 40-5 9 mg/dL, Acceptable >59 mg/dL, High: Negative risk factor for coronary heart disease <40 mg/dL, Low: Positive risk factor for coronary heart disease Performed By: #### 2 4331-1, 3016-3, 83033-0 ####[facility] LABCLIA [id number] [place] [address] [place] Cholesterol in LDL [Mass/Vol] 50 mg/dL Normal <100 [facility] Comment on above: Order Comment: My flannery Type: BLOOD SPECIMENOrdering Facility: [facility] Address: [address] [place] [address] Result Comment: <100 mg/dL, Optimal 100-129 mg/dL, Near optimal/above optimal 130-159 mg/dL, Borderline high 160-189 mg/dL, High >189 mg/dL, Very high Secondary prevention optimal LDL Cholesterol levels are recommended to be < 70 mg/dL Performed By: #### 2 4331-1, 3015-3, ####[facility] LABCLIA [id number] [address] [address] [place] Cholesterol in LDL/Cholesterol in HDL [Mass ratio] 0.74 {ratio} Normal <2.54 [facility] Comment on above: Order Comment: My flannery Type: BLOOD SPECIMENOrdering Facility: [facility] Address: [address] [place] [address] Result Comment: Refe rence: 1. National Cholesterol Education Program ATP III Guideline At-A-Glance Quick Desk Reference: National Heart, Lung, and Blood [place]. National Institutes of Health. 2001: NIH Publication No. 01-3305. 2. An International Atherosclerosis Society position paper: global recommendations for the management of dyslipidemia: executive summary, Atherosclerosis. 2014: 232(2):410-413. Performed By: #### 2 4331-1, 3015-3, ####[facility] LABCLIA [id number] [address] [address] [place] Cholesterol in VLDL [Mass/Vol] 20 mg/dL Normal <30 [facility] Comment on above: Order Comment: My flannery Type: BLOOD SPECIMENOrdering Facility: [facility] Address: [address] [place] [address] Performed By: #### 2 4331-1, 3015-3, ####[facility] LABCLIA [id number] [address] [address] [place] Cholesterol non HDL [Mass/Vol] 70 mg/dL Normal <130 [facility] Comment on above: Order Comment: Speci men Type: BLOOD SPECIMENOrdering Facility: [facility] Address: [address] [place] [address] Result Comment: <130 mg/dL, Optimal 130-159 mg/dL, Near optimal/above optimal 160-189 mg/dL, Borderline high 190-219 mg/dL, High >219 mg/dL, Very high Secondary prevention optimal non HDL Cholesterol levels are recommended to be <100 mg/dL Performed By: #### 2 4331-1, 6-3, ####[facility] LABCLIA [id number] [place] [address] [place] Cholesterol.total/Chol esterol in HDL [Mass ratio] 2.03 {ratio} Normal <5.10 [facility] Comment on above: Order Comment: Speci men Type: BLOOD SPECIMENOrdering Facility: [facility] Address: [address] [place] [address] Performed By: #### 2 4331-1, 3015-3, ####[facility] LABCLIA [id number] [place] [address] [place] FASTING TIME [address] [facility] Comment on above: Order Comment: Speci men Type: BLOOD SPECIMENOrdering Facility: [facility] Address: [address] [place] [address] Performed By: #### 2 4331-1, 3015-3, ####[facility] LABCLIA [id number] [place] [address] [place] Triglyceride [Mass/Vol] 98 mg/dL Normal <150 [facility] Comment on above: Order Comment: Speci men Type: BLOOD SPECIMENOrdering Facility: [facility] Address: [address] [place] [address] Result Comment: <150 mg/dL, Normal 150-199 mg/dL, Borderline high 200-499 mg/dL, High >499 mg/dL, Very high Performed By: #### 2 4331-1, 6-3, 92508-8 ####[facility] LABIA [id number] [place] [address] [place] TSH SerPl-aCncon 09-06-2024 TSH Qn 3.230 m[IU]/L Normal 0.270-4.[address] [facility] Comment on above: Order Comment: Speci men Type: BLOOD SPECIMENOrdering Facility: [facility] Address: [address] [place] [address] [place] [address] Performed By: #### 2 4331-1, 3016-3, 58342-6 ####[facility] LABCLIA [id number] [address] OF [facility] CNOVon 08-30-2024 CNOV Office Visit (INTMWS ) BLESSING JACKSON I ([id number]) 1940 F Date Time Provider Department 08/30/24 3:00 PM JEANA GUERRA INTMWS During your visit today, we recorded the following information about you: Pulse Blood pressure Weight Height 50/minute 158/72 87.2 kg 1.549 m Jeana Guerra MD 08/30/2024 5:22 PM Signed Reason for Visit Patient presents with: F/U 6 months: Bilateral legs wounds, seen in [place], better now, usually sees Dr Carlos Shaw for skin. Blessing Jackson is a 82 year old female who presents here today for Above Complaints.. 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 They put her in a Mattie boot and it has helped. For her lipodermatosclerosis she was seeing a vascular doctor at [facility] Dr Warren wolfe who basically said that some possible intervention may be available for vein stripping the traditional way would be with significant complications. So suggested she tried Gordy Coughlinri for the atypical stropping for venous insufficiency. Dr Shaw started her on Vasculera and her swelling Is def better than before. Dr Kelley tried her on pramipexole substitution gabapentin. but that did not work for her, se of dizziness so She went back to gabapentin. Has balance issues from neuropathy, Diabetes Mellitus related most likely so has been using a type of walker to help her. Last visit we increased the victoza and her sugars are much much better than before she also 5 pounds of weight. HTN: BP uncontrolled today. Recently her amlodipine was increased but that made her too tired. She is taking 2.5 in the morning and 5 mgs in the evening. . She will check the bp for the next week and if more than 135 then go on the amlodipine. Checks BP at home. Compliant with medications. Denies any chest pain, palpitations, SOB, swelling in the feet. Careful with diet to avoid salt, trying to eat more fruits and vegetables, exercises regularly No problem-specific Assessment AND Plan notes found for this encounter. PAST MEDICAL HISTORY Diagnosis Date Cardiomegaly Cellulitis Essential hypertension, benign 1979 Generalized osteoarthrosis, unspecified site 1989 HX: breast cancer 2009 surgery at [facility] Lymphedema left leg Malignant neoplasm of upper-outer quadrant of female breast (HCC) 04/03/2009 Other and unspecified hyperlipidemia PVD (peripheral vascular disease) ([facility]) Special screening for malignant neoplasms, colon 12/12/2014 Type II or unspecified type diabetes mellitus without mention of complication, not stated as uncontrolled 1992 Unspecified hypothyroidism 1970 PAST SURGICAL HISTORY Procedure Laterality Date ARTHRP ACETBLR/PROX FEM PROSTC AGRFT/ALGRFT 2002 right ARTHRP ACETBLR/PROX FEM PROSTC AGRFT/ALGRFT 02/2012 left ARTHRP KNE CONDYLEANDPLATU MEDIALANDLAT COMPARTMENTS 10/24/2006 left BX BREAST PERC VACUUM/ROTN 02/12/2009 Right COLONOSCOPY 2004 COLONOSCOPY FLX DX W/COLLJ SPEC WHEN PFRMD 12/12/2014 Colonoscopy COLONOSCOPY FLX DX W/COLLJ SPEC WHEN PFRMD 01/03/2020 Colonoscopy DISKECTOMY, LUMBAR, SINGLE SP 10/03/2000 L4-5 with cages per pt report PAST SURGICAL HISTORY OF 03/03/2009 right lumpectomy and sentinel node biopsy - Dr. Reynodls - [facility] PAST SURGICAL HISTORY OF Right 02/20/2013 Right TKA REVISE MEDIAN N/CARPAL TUNNEL SURG Right [facility]? FAMILY HISTORY Problem Relation Age of Onset Diabetes Father Heart Mother congenital valve problem Diabetes Sister also has hx breast cancer Diabetes Sister Breast Cancer Sister sister is very private, pt not certain if it was cancer or not. Cancer Maternal Aunt uterine cancer Social History Tobacco Use Smoking status: Never Smokeless tobacco: Never Vaping Use Vaping status: Never Used Substance Use Topics Alcohol use: Yes Comment: Occasional Wine Drug use: Never Past medical history, appointments, medications, allergies reviewed. Pertinent Lab/Diagnostic Studies are reviewed and discussed today Current Outpatient Medications: fluticasone (FLONASE) 50 mcg/actuation nasal spray amLODIPine (NORVASC) 5 mg tablet atenolol (TENORMIN) 25 mg tablet gabapentin (NEURONTIN) 300 mg capsule hydroCHLOROthiazide 25 mg tablet levothyroxine (SYNTHROID) 100 mcg tablet liraglutide (VICTOZA) 0.6 mg/ 0.1 ml subcutaneous pen injector lisinopril (Z (more content not included)... Normal [facility] XR Hand - left PA and Latera l and Obliqueon 12-07-2023 IMPRESSION: Left hand degenerative changes, 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 Chondrocalcinosis. Pound Attendant: PSCB Transcribe Date/Time: Dec 07 2023 2:43P Dictated by : INÉS LEY MD This examination was interpreted and the report reviewed and electronically signed by: INÉS LEY MD on Dec 07 2023 2:45PM [facility] DIVISION OF RADIOLOGY * * *Final Report* * * DATE OF EXAM: Dec 07 2023 2:00PM STX 5345 - XR HAND 3V PA/LAT/OBL LT / PROCEDURE REASON: Pain * * * * Physician Interpretation * * * * HISTORY: Pain . carpal tunnel pain TECHNIQUE: XR HAND 3V PA/LAT/OBL LT Laterality: LEFT Number of different views (projections): 3 COMPARISON: None RESULT: Mild scattered IP joint space narrowing and osteophytes. Probable chondrocalcinosis about the second IP joints and first MCP joint. Mild first MCP joint space narrowing and small osteophytes. Severe narrowing of the first CMC joint space with sclerosis, osteophytes and subchondral cysts. Moderate triscaphe narrowing and tiny osteophytes. Chondrocalcinosis about the first CMC joint and overlying the triangular fibrocartilage. No definite erosion. No acute fracture or dislocation. DIVISION OF RADIOLOGY Provider, [facility] - 12/07/2023 * * *Final Report* * * DATE OF EXAM: Dec 07 2023 2:00PM STX 5345 - XR HAND 3V PA/LAT/OBL LT / PROCEDURE REASON: Pain * * * * Physician Interpretation * * * * HISTORY: Pain . carpal tunnel pain TECHNIQUE: XR HAND 3V PA/LAT/OBL LT Laterality: LEFT Number of different views (projections): 3 COMPARISON: None RESULT: Mild scattered IP joint space narrowing and osteophytes. Probable chondrocalcinosis about the second IP joints and first MCP joint. Mild first MCP joint space narrowing and small osteophytes. Severe narrowing of the first CMC joint space with sclerosis, osteophytes and subchondral cysts. Moderate triscaphe narrowing and tiny osteophytes. Chondrocalcinosis about the first CMC joint and overlying the triangular fibrocartilage. No definite erosion. No acute fracture or dislocation. IMPRESSION IMPRESSION: Left hand degenerative changes, 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 Chondrocalcinosis. Pound Attendant: PSCB Transcribe Date/Time: Dec 07 2023 2:43P Dictated by : INÉS LEY MD This examination was interpreted and the report reviewed and electronically signed by: INÉS LEY MD on Dec 07 2023 2:45PM EST [facility] Radiology Study observation (narrative) [facility] XR Hand - left PA and Latera l and ObliqueOrdered By: [facility] Provider on 12-07-2023 [facility] Breast - bilateral Screen ingon 09-05-2023 IMPRESSION: No mammographic evidence of malignancy. BI-RADS: 2: Benign Recommendation: Routine mammography. Recommendation Laterality: Bilateral The current National Comprehensive Cancer Network and [place] [employer] guidelines recommend women undergo a screening mammogram every year over the age of 40 and continue mammographic screening as long as they are in good health. Screening mammography under age 40 may occur for women who are at increased risk for breast cancer. I personally viewed and interpreted these images and I have reviewed and approved this report. OLOGY EXAM: MAMMO SCREENIN G WITH DAVION BILATERAL, 09/05/2023 11:21 AM CLINICAL INDICATIONS: Screening COMPARISON: Compared to prior study dated August 30, 2022, August 13, 2021, July 31, 2020 TECHNIQUE: 3-D MLO and CC digital tomosynthesis images were obtained of the bilateral breasts. Synthetic 2-D images were generated from the tomosynthesis data. Computer aided detection was utilized. FINDINGS: The breasts have scattered areas of fibroglandular density. Bilateral benign appearing calcifications are noted. Postsurgical and post treatment changes of the right upper outer breast are seen There are no suspicious masses, calcifications, or architectural distortions. RADIOLOGY Gian Guo MD - 09/05/2023 EXAM: MAMMO SCREENING WITH DAVION BILATERAL, 09/05/2023 11:21 AM CLINICAL INDICATIONS: Screening COMPARISON: Compared to prior study dated August 30, 2022, August 13, 2021, July 31, 2020 TECHNIQUE: 3-D MLO and CC digital tomosynthesis images were obtained of the bilateral breasts. Synthetic 2-D images were generated from the tomosynthesis data. Computer aided detection was utilized. FINDINGS: The breasts have scattered areas of fibroglandular density. Bilateral benign appearing calcifications are noted. Postsurgical and post treatment changes of the right upper outer breast are seen There are no suspicious masses, calcifications, or architectural distortions. IMPRESSION IMPRESSION: No mammographic evidence of malignancy. BI-RADS: 2: Benign Recommendation: Routine mammography. Recommendation Laterality: Bilateral The current National Comprehensive Cancer Network and [place] [employer] guidelines recommend women undergo a screening mammogram every year over the age of 40 and continue mammographic screening as long as they are in good health. Screening mammography under age 40 may occur for women who are at increased risk for breast cancer. I personally viewed and interpreted these images and I have reviewed and approved this report. [facility] Radiology Study observation (narrative) [facility] MG Breast - bilateral Screen ingOrdered By: Gian Guo on 09-05-2023 [facility] Work Phone: Basophil percentageon 2021 Creatinine [Mass/Vol] 1.0 mg/dL 0.55-1.02 [facility] Work Phone: Laboratory - Chemistry and C hemistry - challengeon 09-03-2022 GFR/1.73 sq M.predicted among non-blacks MDRD (S/P/Bld) [Vol rate/Area] 58.0000 mL/min/{1.73_m2} >60 [facility] Work Phone: MG Breast - bilateral Screen ingon 08-30-2022 IMPRESSION: No mammographic evidence of malignancy. BI-RADS: 2: Benign Recommendation: Routine mammography. Recommendation Laterality: Bilateral The current National Comprehensive Cancer Network and [place] [employer] guidelines recommend women undergo a screening mammogram every year over the age of 40 and continue mammographic screening as long as they are in good health. Screening mammography under age 40 may occur for women who are at increased risk for breast cancer. 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 COMPARISON: Mammogram 08/13/2021, 07/31/2020, 03/06/2019, 03/02/2018, 03/01/2017 TECHNIQUE: Synthetic 2-D MLO and CC views were obtained of the bilateral breasts. 3-D MLO and CC digital tomosynthesis images were also acquired. Computer aided detection was utilized. FINDINGS: The breasts have scattered areas of fibroglandular density. Bilateral benign appearing calcifications are noted. There are postsurgical changes in the upper outer right breast. There are no suspicious masses, calcifications, or architectural distortions. 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 COMPARISON: Mammogram 08/13/2021, 07/31/2020, 03/06/2019, 03/02/2018, 03/01/2017 TECHNIQUE: Synthetic 2-D MLO and CC views were obtained of the bilateral breasts. 3-D MLO and CC digital tomosynthesis images were also acquired. Computer aided detection was utilized. FINDINGS: The breasts have scattered areas of fibroglandular density. Bilateral benign appearing calcifications are noted. There are postsurgical changes in the upper outer right breast. There are no suspicious masses, calcifications, or architectural distortions. IMPRESSION IMPRESSION: No mammographic evidence of malignancy. BI-RADS: 2: Benign Recommendation: Routine mammography. Recommendation Laterality: Bilateral The current National Comprehensive Cancer Network and [place] [employer] guidelines recommend women undergo a screening mammogram every year over the age of 40 and continue mammographic screening as long as they are in good health. Screening mammography under age 40 may occur for women who are at increased risk for breast cancer. [facility] Radiology Study observation (narrative) [facility] MG Breast - bilateral Screen ingOrdered By: Gabi Martin on 08-30-2022 [facility] Work Phone: Vital Signs Date Time Vital Sign Value Performing Clinician Facility 04-16-2025 14:09-0400 Body temperature 97.8 [degF] Dr. Jeana Guerra MD Work Phone: 7(697)689-470384 [place] [address] 04-16-2025 14:09-0400 Diastolic blood pressure 78 mm[Hg] Dr. Jeana Guerra MD Work Phone: 1(074)982-532584 [place] [address] 04-16-2025 14:09-0400 Heart rate 118 /min Dr. Jeana Guerra MD Work Phone: 4(555)303-769484 [place] [address] 04-16-2025 14:09-0400 Respiratory rate 20 /min Dr. Jeana Guerra MD Work Phone: 8(838)670-550084 [place] [address] 04-16-2025 14:09-0400 SaO2% (BldA) [Mass fraction] 94 % Dr. Jeana Guerra MD Work Phone: 8(286)904-746684 [place] [address] 04-16-2025 14:09-0400 Systolic blood pressure 108 mm[Hg] Dr. Jeana Guerra MD Work Phone: 6(818)047-295684 [place] [address] 04-16-2025 13:04-0400 Inhaled oxygen flow rate 2 L/min Dr. Jeana Guerra MD Work Phone: 0(192)204-498084 [place] [address] 04-16-2025 11:28-0400 Body mass index (BMI) [Ratio] 38.8 kg/m2 Dr. Jeana Guerra MD Work Phone: 1(717)746-402184 [place] [address] 04-16-2025 11:28-0400 Body weight 93.[address] Jeana Guerra MD Work Phone: 5(648)382-422384 [place] [address] 04-16-2025 11:12-0400 Body height 154.[address] Jeana Guerra MD Work Phone: 3(154)769-274284 [place] [address] 03-04-2025 09:49-0400 Body mass index (BMI) [Ratio] 35.98 kg/m2 Jeana Guerra MD Work Phone: 6(430)828-549369 [place] [address] 03-04-2025 09:49-0400 Body weight 86.36 kg Jeana Guerra MD Work Phone: 0(956)173-769169 [place] [address] 03-04-2025 09:49-0400 Diastolic blood pressure 87 mm[Hg] Jeana Guerra MD Work Phone: [facility] 03-04-2025 09:49-0400 Heart rate 92 /min Jeana Guerra MD Work Phone: [facility] 03-04-2025 09:49-0400 Respiratory rate 16 /min Jeana Guerra MD Work Phone: [facility] 03-04-2025 09:49-0400 Systolic blood pressure 135 mm[Hg] Jeana Guerra MD Work Phone: 6(103)503-143288 [place] [address] 01-23-2025 08:48-0500 Body height 154.[address] Jeana Guerra MD Work Phone: 9(969)778-319384 [place] [address] 01-23-2025 08:48-0500 Body mass index (BMI) [Ratio] 36.6 kg/m2 Dr. Jeana Guerra MD Work Phone: 4(309)158-613384 [place] [address] 01-23-2025 08:48-0500 Body weight 87.[address] Jeana Guerra MD Work Phone: 7(376)331-340427 [place] [address] 01-23-2025 08:48-0500 Diastolic blood pressure 83 mm[Hg] Dr. Jeana Guerra MD Work Phone: 8(755)468-481284 [place] [address] 01-23-2025 08:48-0500 Heart rate 95 /min Dr. Jeana Guerra MD Work Phone: 4(507)643-333327 [place] [address] 01-23-2025 08:48-0500 Respiratory rate 18 /min Dr. Jeana Guerra MD Work Phone: 9(550)312-661227 [place] [address] 01-23-2025 08:48-0500 SaO2% (BldA) [Mass fraction] 94 % Dr. Jeana Guerra MD Work Phone: 1(339)669-066627 [place] [address] 01-23-2025 08:48-0500 Systolic blood pressure 134 mm[Hg] Dr. Jeana Guerra MD Work Phone: 5(159)808-091727 [place] [address] 01-22-2025 15:05-0500 Body height 154.9 cm Jeana Guerra MD Work Phone: 4(746)062-414888 [place] [address] 01-22-2025 15:05-0500 Body mass index (BMI) [Ratio] 36.92 kg/m2 Jeana Guerra MD Work Phone: [facility] 01-22-2025 15:05-0500 Body weight 88.63 kg Jeana Guerra MD Work Phone: [facility] 01-22-2025 15:05-0500 Diastolic blood pressure 68 mm[Hg] Jeana Guerra MD Work Phone: [facility] 01-22-2025 15:05-0500 Heart rate 80 /min Jeana Guerra MD Work Phone: 0(766)220-935788 [place] [address] 01-22-2025 15:05-0500 SaO2% (BldA) [Mass fraction] 98 % Jeana Guerra MD Work Phone: 7(750)080-656088 [place] [address] 01-22-2025 15:05-0500 Systolic blood pressure 106 mm[Hg] Jeana Guerra MD Work Phone: 1(420)698-447888 [place] [address] 01-11-2025 09:22-0500 Heart rate 111 /min Dr. Jeana Guerra MD Work Phone: 1(338)314-973527 [place] [address] 01-11-2025 08:45-0500 Diastolic blood pressure 47 mm[Hg] Dr. Jeana Guerra MD Work Phone: 4(538)067-792827 [place] [address] 01-11-2025 08:45-0500 Respiratory rate 15 /min Dr. Jeana Guerra MD Work Phone: 6(348)567-539427 [place] [address] 01-11-2025 08:45-0500 SaO2% (BldA) [Mass fraction] 96 % Dr. Jeana uGerra MD Work Phone: 6(927)492-057527 [place] [address] 01-11-2025 08:45-0500 Systolic blood pressure 107 mm[Hg] Dr. Jeana Guerra MD Work Phone: 6(048)917-135384 [place] [address] 01-11-2025 05:15-0500 Body temperature 97.5 [degF] Dr. Jeana Guerra MD Work Phone: 4(665)830-805684 [place] [address] 01-11-2025 00:26-0500 Body mass index (BMI) [Ratio] 39.2 kg/m2 Dr. Jeana Guerra MD Work Phone: [facility] 01-11-2025 00:26-0500 Body weight 94.[address] Jeana Guerra MD Work Phone: 6(824)795-052627 [place] [address] 01-10-2025 12:20-0500 Inhaled oxygen flow rate 2 L/min Dr. Jeana Guerra MD Work Phone: 3(377)201-571427 [place] [address] 01-08-2025 08:59-0500 Diastolic blood pressure 68 mm[Hg] Jeana Guerra MD Work Phone: 1(301)720-121288 [place] [address] 01-08-2025 08:59-0500 Systolic blood pressure 104 mm[Hg] Jeana Guerra MD Work Phone: 0(033)271-198588 [place] [address] 01-08-2025 08:54-0500 Body mass index (BMI) [Ratio] 41.76 kg/m2 Jeana Guerra MD Work Phone: [facility] 01-08-2025 08:54-0500 Body temperature 98.1 [degF] Jeana Guerra MD Work Phone: 7(840)054-738788 [place] [address] 01-08-2025 08:54-0500 Body weight 100.25 kg Jeana Guerra MD Work Phone: [facility] 01-08-2025 08:54-0500 Heart rate 114 /min Jeana Guerra MD Work Phone: [facility] 12-22-2024 13:32-0500 Body mass index (BMI) [Ratio] 40.16 kg/m2 Mac Cespedes MD Work Phone: [facility] 12-22-2024 13:32-0500 Body temperature 97.59 [degF] Mac Cespedes MD Work Phone: [facility] 12-22-2024 13:32-0500 Body weight 96.4 kg Mac Cespedes MD Work Phone: [facility] 12-22-2024 13:32-0500 Diastolic blood pressure 91 mm[Hg] Mac Cespedes MD Work Phone: [facility] 12-22-2024 13:32-0500 Heart rate 96 /min Mac Cespedes MD Work Phone: [facility] 12-22-2024 13:32-0500 Respiratory rate 20 /min Mac Cespedes MD Work Phone: [facility] 12-22-2024 13:32-0500 SaO2% (BldA) [Mass fraction] 97 % Mac Cespedes MD Work Phone: [facility] 12-22-2024 13:32-0500 Systolic blood pressure 142 mm[Hg] Mac Cespedes MD Work Phone: [facility] 09-10-2024 13:56-0400 Body height 154.9 cm Adrian Jeong WIRE INSPECTOR-WATCH [employer]TER Work Phone: 9(108)960-350198 [address] 09-10-2024 13:56-0400 Body mass index (BMI) [Ratio] 36.47 kg/m2 Adrian Jeong WIRE INSPECTOR[employer] Work Phone: 2(357)741-085798 [address] 09-10-2024 13:56-0400 Body weight 87.54 kg Adrian Jeong WIRE INSPECTOR-[employer] Work Phone: 2(635)923-999998 [address] 09-10-2024 13:56-0400 Diastolic blood pressure 62 mm[Hg] Adrian Jeong WIRE INSPECTOR-[employer] Work Phone: 4(644)716-551098 [address] 09-10-2024 13:56-0400 Heart rate 84 /min Adrian Jeong WIRE INSPECTOR[employer] Work Phone: 1(761)667-837798 [address] 09-10-2024 13:56-0400 SaO2% (BldA) [Mass fraction] 97 % Adrian Jeong WIRE INSPECTOR[employer] Work Phone: [facility] 09-10-2024 13:56-0400 Systolic blood pressure 155 mm[Hg] Adrian Jeong WIRE INSPECTOR[employer] Work Phone: [facility] 09-10-2024 12:12-0400 Diastolic blood pressure 71 mm[Hg] Amy Lauri WIRE INSPECTOR[employer] Work Phone: [facility] 09-10-2024 12:12-0400 Systolic blood pressure 166 mm[Hg] Amy Carreon WIRE INSPECTOR[employer] Work Phone: [facility] 09-10-2024 12:02-0400 Body height 154.9 cm Amy Carreon WIRE INSPECTOR[employer] Work Phone: [facility] 09-10-2024 12:02-0400 Body mass index (BMI) [Ratio] 36.54 kg/m2 Amy Carreon WIRE INSPECTOR[employer] Work Phone: [facility] 09-10-2024 12:02-0400 Body temperature 97.3 [degF] Amy Carreon WIRE INSPECTOR[employer] Work Phone: [facility] 09-10-2024 12:02-0400 Body weight 87.73 kg Amy Lauri WIRE INSPECTOR[employer] Work Phone: [facility] 09-10-2024 12:02-0400 Heart rate 65 /min Amy Carreon WIRE INSPECTOR[employer] Work Phone: [facility] 09-10-2024 12:02-0400 Respiratory rate 18 /min Amy Carreon WIRE INSPECTOR[employer] Work Phone: [facility] 09-10-2024 12:02-0400 SaO2% (BldA) [Mass fraction] 96 % Amy Carreon WIRE INSPECTOR[employer] Work Phone: [facility] 08-30-2024 15:03-0400 Body height 154.9 cm Jeana Guerra MD Work Phone: [place] [address]-10-2024 15:03-0400 Body mass index (BMI) [Ratio] 36.32 kg/m2 Jeana Guerra MD Work Phone: [facility] 08-30-2024 15:03-0400 Body weight 87.18 kg Jeana Guerra MD Work Phone: [facility] 08-30-2024 15:03-0400 Diastolic blood pressure 72 mm[Hg] Jeana Guerra MD Work Phone: [facility] 08-30-2024 15:03-0400 Heart rate 50 /min Jeana Guerra MD Work Phone: [facility] 08-30-2024 15:03-0400 SaO2% (BldA) [Mass fraction] 99 % Jeana Guerra MD Work Phone: [facility] 08-30-2024 15:03-0400 Systolic blood pressure 158 mm[Hg] Jeana Guerra MD Work Phone: [facility] 04-12-2024 08:17-0400 Body mass index (BMI) [Ratio] 36.66 kg/m2 Greta Older WIRE INSPECTOR.[employer] Work Phone: [facility] 04-12-2024 08:17-0400 Body weight 88 kg Greta Older WIRE INSPECTOR.[employer] Work Phone: [facility] 04-12-2024 08:17-0400 Diastolic blood pressure 66 mm[Hg] Greta Older WIRE INSPECTOR.[employer] Work Phone: [facility] 04-12-2024 08:17-0400 Heart rate 60 /min Greta Older WIRE INSPECTOR.[employer] Work Phone: [facility] 04-12-2024 08:17-0400 Respiratory rate 16 /min Greta Older WIRE INSPECTOR.[employer] Work Phone: [facility] 04-12-2024 08:17-0400 SaO2% (BldA) [Mass fraction] 98 % Greta Older WIRE INSPECTOR.[employer] Work Phone: [facility] 04-12-2024 08:17-0400 Systolic blood pressure 134 mm[Hg] Greta Older WIRE INSPECTOR.[employer] Work Phone: [facility] 03-29-2024 11:31-0400 Diastolic blood pressure 77 mm[Hg] Greta Older WIRE INSPECTOR.[employer] Work Phone: [facility] Comment on above: BP JEFFERY AVERAGE 03-29-2024 11:31-0400 Heart rate 58 /min Greta Older WIRE INSPECTOR.[employer] Work Phone: [facility] 03-29-2024 11:31-0400 Systolic blood pressure 168 mm[Hg] Greta Older WIRE INSPECTOR.[employer] Work Phone: [facility] Comment on above: BP JEFFERY AVERAGE 03-29-2024 10:53-0400 Body mass index (BMI) [Ratio] 36.49 kg/m2 Greta Older WIRE INSPECTOR.[employer] Work Phone: [facility] [facility] 03-29-2024 10:53-0400 Body weight 87.6 kg Greta Older WIRE INSPECTOR.WATCH CRYSTAL CUTTER Work Phone: [facility] 03-29-2024 10:53-0400 Respiratory rate 16 /min Greta Older WIRE INSPECTOR.WATCH CRYSTAL CUTTER Work Phone: [facility] 03-29-2024 10:53-0400 SaO2% (BldA) [Mass fraction] 98 % Greta Older WIRE INSPECTOR.WATCH CRYSTAL CUTTER Work Phone: [facility] 01-27-2024 13:32-0500 Body height 154.9 cm Pacc 1 Work Phone: [facility] 01-27-2024 13:32-0500 Body weight 84.64 kg Pacc 1 Work Phone: [facility] 01-27-2024 13:32-0500 Diastolic blood pressure 66 mm[Hg] Pacc 1 Work Phone: [facility] 01-27-2024 13:32-0500 Heart rate 60 /min Pacc 1 Work Phone: [facility] 01-27-2024 13:32-0500 Respiratory rate 18 /min Pacc 1 Work Phone: [facility] 01-27-2024 13:32-0500 SaO2% (BldA) [Mass fraction] 97 % Pacc 1 Work Phone: [facility] 01-27-2024 13:32-0500 Systolic blood pressure 124 mm[Hg] Pacc 1 Work Phone: [facility] 09-29-2023 10:48-0500 Diastolic blood pressure 59 mm[Hg] Greta Older WIRE INSPECTOR.WATCH CRYSTAL CUTTER Work Phone: [facility] 09-29-2023 10:48-0500 Heart rate 49 /min Greta Older WIRE INSPECTOR.WATCH CRYSTAL CUTTER Work Phone: [facility] 09-29-2023 10:48-0500 Systolic blood pressure 129 mm[Hg] Greta Older WIRE INSPECTOR.WATCH CRYSTAL CUTTER Work Phone: [facility] 09-29-2023 10:12-0500 Body weight 88.91 kg Greta Older WIRE INSPECTOR.WATCH CRYSTAL CUTTER Work Phone: [facility] 09-29-2023 10:12-0500 Respiratory rate 16 /min Greta Older WIRE INSPECTOR.WATCH CRYSTAL CUTTER Work Phone: [facility] 09-29-2023 10:12-0500 SaO2% (BldA) [Mass fraction] 98 % Greta Older WIRE INSPECTOR.WATCH CRYSTAL CUTTER Work Phone: [facility] 09-05-2023 14:44-0400 Body height 154.9 cm Adrian Jeong WIRE INSPECTOR-WATCH CRYSTAL CUTTER Work Phone: [facility] 09-05-2023 14:44-0400 Body mass index (BMI) [Ratio] 37.22 kg/m2 Adrian Jeong WIRE INSPECTOR-WATCH CRYSTAL CUTTER Work Phone: [facility] 09-05-2023 14:44-0400 Body weight 89.36 kg Adrian Jeong WIRE INSPECTOR-WATCH CRYSTAL CUTTER Work Phone: [facility] 09-05-2023 14:44-0400 Diastolic blood pressure 60 mm[Hg] Adrian Jeong WIRE INSPECTOR-WATCH CRYSTAL CUTTER Work Phone: [facility] 09-05-2023 14:44-0400 Heart rate 68 /min Adrian Jeong WIRE INSPECTOR-WATCH CRYSTAL CUTTER Work Phone: [facility] 09-05-2023 14:44-0400 Systolic blood pressure 140 mm[Hg] Adrian Jeong WIRE INSPECTOR-WATCH CRYSTAL CUTTER Work Phone: [facility] 01-24-2023 11:02-0500 Body height 154.9 cm Aubrey Kelley DO Work Phone: [facility] 01-24-2023 11:02-0500 Body mass index (BMI) [Ratio] 36.6 kg/m2 Aubrey Kelley DO Work Phone: [phone] [address] 01-24-2023 11:02-0500 Body weight 87.86 kg Aubrey Kelley DO Work Phone: [phone])[phone] [address] 01-24-2023 11:02-0500 Diastolic blood pressure 72 mm[Hg] Aubrey Kelley DO Work Phone: [facility] 01-24-2023 11:02-0500 Heart rate 78 /min Aubrey Kelley DO Work Phone: [facility] 01-24-2023 11:02-0500 SaO2% (BldA) [Mass fraction] 98 % Aubrey Kelley DO Work Phone: [facility] 01-24-2023 11:02-0500 Systolic blood pressure 148 mm[Hg] Aubrey Kelley DO Work Phone: [phone] [address] 10-28-2022 12:18-0500 Diastolic blood pressure 65 mm[Hg] Jeana Guerra MD Work Phone: [facility] 10-28-2022 12:18-0500 Systolic blood pressure 128 mm[Hg] Jeana Guerra MD Work Phone: [facility] 10-28-2022 12:08-0500 Body weight 91.17 kg Jeana Guerra MD Work Phone: [facility] 10-28-2022 12:08-0500 Heart rate 61 /min Jeana Guerra MD Work Phone: [facility] 10-28-2022 12:08-0500 Respiratory rate 16 /min Jeana Guerra MD Work Phone: [facility] 10-28-2022 12:08-0500 SaO2% (BldA) [Mass fraction] 98 % Jeana Guerra MD Work Phone: [facility] 08-31-2022 09:20-0400 Body height 154.94 cm [facility] Work Phone: 08-31-2022 09:20-0400 Body mass index (BMI) [Ratio] 39.6 kg/m2 [facility] Work Phone: 08-31-2022 09:20-0400 Body temperature 97.8 [degF] [facility] Work Phone: 08-31-2022 09:20-0400 Body weight 95.25 kg [facility] Work Phone: 08-31-2022 09:20-0400 Diastolic blood pressure 69 mm[Hg] [facility] Work Phone: 08-31-2022 09:20-0400 Heart rate 51 /min [facility] Work Phone: 08-31-2022 09:20-0400 Systolic blood pressure 142 mm[Hg] [facility] Work Phone: 04-06-2022 13:27-0400 Diastolic blood pressure 74 mm[Hg] Mi Nurse Work Phone: [facility] 04-06-2022 13:27-0400 Heart rate 68 /min Mi Nurse Work Phone: [facility] 04-06-2022 13:27-0400 Systolic blood pressure 126 mm[Hg] Mi Nurse Work Phone: [facility] 03-22-2022 10:45-0400 Diastolic blood pressure 80 mm[Hg] Jeana Guerra MD Work Phone: [facility] 03-22-2022 10:45-0400 Systolic blood pressure 146 mm[Hg] Jeana Guerra MD Work Phone: [facility] 03-22-2022 09:51-0400 Body height 157.5 cm Jeana Guerra MD Work Phone: [facility] 03-22-2022 09:51-0400 Body temperature 98.2 [degF] Jeana Guerra MD Work Phone: [facility] 03-22-2022 09:51-0400 Body weight 95.25 kg Jeana Guerra MD Work Phone: [facility] 03-22-2022 09:51-0400 Heart rate 76 /min Jeana Guerra MD Work Phone: [facility] 03-22-2022 09:51-0400 Respiratory rate 14 /min Jeana Guerra MD Work Phone: [facility] 03-22-2022 09:51-0400 SaO2% (BldA) [Mass fraction] 98 % Jeana Guerra MD Work Phone: [facility] Encounters Encounter Date Encounter Type Care Provider Facility Start: 04-18-2025 End: 04-22-2025 Telephone encounter Jeana Guerra MD Work Phone: [facility] Comment on above: Patient Update Start: 04-16-2025 ambulatory [facility] Facility:[facility] Start: 04-16-2025 ambulatory [facility] Start: 04-16-2025 Evaluation and management of inpatient Dr. Ras Blas DO -Progressive Care Unit Work Phone: Start: 03-04-2025 End: 03-04-2025 Office outpatient visit 25 minutes Jeana Guerra MD Work Phone: [facility] [place] Comment on above: Type 2 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); Hypothyroidism, adult; Diabetic polyneuropathy associated with type 2 diabetes mellitus (HCC); Class 2 severe obesity with serious comorbidity and body mass index (BMI) of 36.0 to 36.9 in adult, unspecified obesity type (HCC); Essential (primary) hypertension; Paroxysmal atrial fibrillation (HCC) Start: 03-04-2025 End: 03-06-2025 Refill Jeana Guerra MD Work Phone: [facility] [place] Comment on above: Refill Request Start: 03-01-2025 End: 03-01-2025 ambulatory MIRANDA DE Facility:[facility] Start: 03-01-2025 End: 03-01-2025 Patient encounter procedure Miranda De Work Phone: Podiatry Comment on above: Onychomycosis (Prima ry Dx); Pain in toe of right foot; Pain in toe of left foot; Type 2 diabetes mellitus with peripheral neuropathy (HCC) Start: 02-27-2025 End: 02-27-2025 ambulatory JEANA GUERRA Facility:[facility] Start: 02-21-2025 End: 02-21-2025 Refill Jeana Guerra MD Work Phone: [facility] [place] Comment on above: Refill Request Start: 01-31-2025 End: 01-31-[address] Jeana Guerra MD Work Phone: [facility] Work Phone: Start: 01-31-2025 End: 01-31-2025 Patient encounter procedure Magdi CEDEÑO -Radiology, [facility] Work Phone: Start: 01-31-2025 End: 01-31-2025 ambulatory Magdi Thomas Facility:[facility] Start: 01-23-2025 End: 01-23-[address] Jeana Guerra MD Work Phone: [facility] Work Phone: Start: 01-23-2025 End: 01-23-2025 Patient encounter procedure Magdi CEDEÑO -Laboratory Work Phone: Start: 01-23-2025 End: 01-23-2025 Patient encounter procedure Magdi CEDEÑO -[facility] Work Phone: Start: 01-23-2025 End: 01-23-2025 ambulatory Magdi Thomas Facility:[facility] Start: 01-22-2025 End: 01-23-2025 ambulatory JEANA GANTA Facility:[facility] Start: 01-22-2025 End: 01-22-2025 Office outpatient visit 25 minutes Jeana Guerra MD Work Phone: [facility] [place] Comment on above: Hospital discharge f ollow-up (Primary Dx); Atrial fibrillation, unspecified type (HCC); Acute on chronic 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 Supa Brumfield MD -[facility] Work Phone: Start: 01-10-2025 End: 01-10-2025 ambulatory Brigitte Abel RN Work Phone: Vice President Quality Improvement Management Comment on above: YURY JEAN RN ( ED utilization review per request of payor/) Start: 01-10-2025 Non-patient / Non-visit Dr. Gerald sullivan MD -[facility] Start: 01-09-2025 Non-patient / Non-visit Betsy ALVARADO -[facility] Start: 01-09-2025 Non-patient / Non-visit Dr. Gerald sullivan MD -[facility] Start: 01-09-2025 Non-patient / Non-visit Dr. Supa Brumfield MD -[facility] Work Phone: Start: 01-08-2025 End: 01-11-2025 Evaluation and management of inpatient Dr. Supa Brumfield MD -Intensive Care Unit Work Phone: Start: 01-08-2025 End: 01-08-2025 ambulatory [facility] Facility:[facility] Start: 01-08-2025 End: 01-08-2025 Office outpatient visit 40 minutes Jeana Guerar MD Work Phone: [facility] [place] Comment on above: Vasomotor rhinitis ( Primary Dx); Post-nasal drip; Obesity, Class III, BMI >= 40; Stage 3a chronic kidney disease (HCC); Type 2 diabetes mellitus with peripheral neuropathy (HCC); Weight gain; Malaise; Increased abdominal girth; Cardiac arrhythmia, unspecified cardiac arrhythmia type; Edema due to malnutrition, due to unspecified malnutrition type (HCC); Palpitations; Dyspnea, unspecified type Start: 12-22-2024 End: 12-22-2024 ambulatory [facility] Facility:[facility] Start: 12-22-2024 End: 12-22-2024 Office outpatient visit 25 minutes Mac Cespedes MD Work Phone: [facility] Comment on above: Acute non-recurrent sinusitis, unspecified location (Primary Dx) Start: 12-11-2024 End: 12-17-2024 Telephone encounter Jeana Guerra MD Work Phone: [facility] Comment on above: Insurance Authorizat ion Start: 10-11-2024 End: 10-11-2024 ambulatory MIRANDA MOSESANTHONY Facility:[facility] Start: 10-11-2024 End: 10-11-2024 Patient encounter procedure Miranda De Work Phone: Podiatry Comment on above: Onychomycosis (Prima ry Dx); Pain in toe of right foot; Pain in toe of left foot; Type 2 diabetes mellitus with peripheral neuropathy (HCC); Venous insufficiency; Callus of foot Start: 10-05-2024 End: 10-05-2024 Refill Jeana Guerra MD Work Phone: [facility] [place] Comment on above: Refill Request Start: 09-25-2024 End: 09-25-2024 ambulatory Gloria Doan MA [facility] Start: 09-25-2024 End: 09-25-2024 Patient encounter procedure Gloria Doan MA [facility] Comment on above: Population Health Na vigation Outreach (Mauricio lema) Start: 09-17-2024 End: 09-17-2024 Telephone encounter Betsy Abad [facility] Comment on above: Paperwork Start: 09-10-2024 End: 09-10-2024 Office outpatient visit 25 minutes Adrian Jeong APRN-WATCH CRYSTAL CUTTER Work Phone: [facility] [place] Comment on above: Leg swelling (Primar y Dx); Lipodermatosclerosis of both lower extremities; Lymphedema; Chronic venous insufficiency Start: 09-10-2024 ambulatory JEANA GUERRA Facility :[facility] Start: 09-10-2024 End: 09-10-2024 Office outpatient visit 10 minutes Amy Carreon APRN-WATCH CRYSTAL CUTTER Work Phone: Division of Surgical Oncology Comment on above: Ductal carcinoma in situ (DCIS) of right breast (Primary Dx); Encounter for screening mammogram for malignant neoplasm of breast Start: 09-10-2024 [facility] JEANA GUERRA Facility :[facility] Start: 09-10-2024 End: 09-10-2024 Subsequent hospital visit by physician Amy Carreon APRN-WATCH CRYSTAL CUTTER Work Phone: [facility] Comment on above: Arrived Start: 09-08-2024 End: 09-10-2024 Telephone encounter Jeana Guerra MD Work Phone: [facility] [place] Comment on above: Results Start: 09-06-2024 End: 09-06-2024 ambulatory [facility]NA [facility] Facility:[facility] Start: 08-30-2024 End: 08-30-2024 Office outpatient visit 25 minutes Jeana Guerra MD Work Phone: [facility] [place] Comment on above: Type 2 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) (Primary Dx); Essential hypertension; Hyperlipidemia, unspecified hyperlipidemia type; Acquired hypothyroidism Start: 08-30-2024 End: 08-30-2024 ambulatory [facility] Facility:[facility] Start: 07-03-2024 Refill Jeana Chi Work Phone: [facility] [place] Comment on above: Refill Request Start: 04-23-2024 ambulatory Greta BhandariWATCH CRYSTAL CUTTER Work Phone: [facility] Comment on above: Sleep Medication Start: 04-12-2024 End: 04-12-2024 Patient encounter procedure Greta Arreola APRN.CNP Work Phone: [facility] [place] Comment on above: Essential hypertensi on (Primary Dx) Start: 04-04-2024 End: 04-04-2024 Patient encounter procedure Argentina Escobar PA-C Work Phone: Orthopaedics Comment on above: Carpal tunnel syndro me on left (Primary Dx) Start: 03-30-2024 End: 03-30-2024 Patient encounter procedure Miranda De Work Phone: Podiatry Comment on above: Onychomycosis (Prima ry Dx); Pain in toe of right foot; Pain in toe of left foot; Type 2 diabetes mellitus with peripheral neuropathy (HCC) Start: 03-29-2024 End: 03-29-2024 Patient encounter procedure Greta Arreola APRN.CNP Work Phone: [facility] Comment on above: Essential hypertensi on (Primary Dx); Hyperlipidemia, unspecified hyperlipidemia type; Type 2 diabetes mellitus with peripheral neuropathy (HCC); Hypothyroidism, adult; Function kidney decreased Start: 03-13-2024 ambulatory Jeana Chi Work Phone: [facility] [place] Start: 02-29-2024 End: 02-29-2024 Nursing evaluation of patient and report Yee Lema RN Work Phone: Orthopaedics Comment on above: Post-operative state (Primary Dx) Start: 01-27-2024 End: 01-27-2024 Admission to establishment [facility] Work Phone: [facility] Start: 01-27-2024 End: 01-27-2024 ambulatory [facility] Work Phone: Pre Anesthesia Comment on above: Preoperative examina tion (Primary Dx); Diabetic polyneuropathy associated with type 2 diabetes mellitus (HCC); Essential hypertension; Peripheral venous insufficiency; 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lbuminuria, without long-term current use of insulin (HCC) (HCC); History of cancer of right breast; Lipodermatosclerosis; Carpal tunnel syndrome on left Start: 01-27-2024 End: 01-27-[address] [facility] 1 Work Phone: [facility] Work Phone: Start: 01-03-2024 Refill Jeana Chi Work Phone: [facility] [place] Comment on above: Refill Request Start: 12-28-2023 ambulatory Grady Wells MD, PhD Work Phone: Orthopaedics Start: 12-07-2023 End: 12-07-2023 Subsequent hospital visit by physician Marta [facility] Work Phone: Radiology Comment on above: Pain [R52] Start: 09-29-2023 End: 09-29-2023 Patient encounter procedure Greta Arreola APRN.WATCH CRYSTAL CUTTER Work Phone: [facility] [place] Comment on above: Essential hypertensi on (Primary Dx); Type 2 diabetes mellitus with peripheral neuropathy (HCC); Hypothyroidism, adult; Hyperlipidemia, unspecified hyperlipidemia type; Carpal tunnel syndrome of left wrist Start: 09-13-2023 ambulatory Jeana Chi Work Phone: Internal Medicine [facility] Start: 09-12-2023 Refill Jeana Guerra M D Work Phone: [facility] Comment on above: Refill Request Start: 09-09-2023 End: 09-09-2023 Patient encounter procedure Miranda De Work Phone: Podiatry Comment on above: Type 2 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) (Primary Dx); Onychomycosis; Pain in toe of right foot; Pain in toe of left foot; Peripheral arterial disease (HCC) Start: 09-05-2023 End: 09-05-2023 Office outpatient visit 25 minutes Adrian Jeong APRN-WATCH CRYSTAL CUTTER Work Phone: [facility] [place] Comment on above: Leg swelling (Primar y Dx); Lipodermatosclerosis of both lower extremities; Lymphedema; Chronic venous insufficiency; Leg cramps; Bruit of left carotid artery Start: 09-05-2023 End: 09-05-2023 Subsequent hospital visit by physician Amy HERNANDEZ Work Phone: [facility] at [facility] Comment on above: Arrived Start: 04-19-2023 End: 04-19-2023 Patient encounter procedure Miranda De Work Phone: Podiatry Comment on above: Type 2 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) (Primary Dx); Onychomycosis; Pain in toe of right foot; Pain in toe of left foot; Callus of foot; Hammer toe of right foot; Peripheral arterial disease (HCC) Start: 03-29-2023 ambulatory Jeana Chi Work Phone: [facility] [place] Start: 03-03-2023 Telephone encounter Jeana pollock MD Work Phone: [facility] [place] Comment on above: Handicap placard Start: 01-24-2023 End: 01-24-2023 Office outpatient new 60 minutes Aubrey Kelley DO Work Phone: [facility] [place] Comment on above: Leg swelling (Primar y Dx); Lipodermatosclerosis of both lower extremities; Chronic venous insufficiency; Lymphedema; Abdominal pannus; Leg cramps; Pain in both lower extremities; Bruit of left carotid artery Start: 12-03-2022 End: 12-03-2022 Patient encounter procedure Miranda De Work Phone: Podiatry Comment on above: Type 2 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) (Primary Dx); Onychomycosis; Pain in toe of right foot; Pain in toe of left foot Start: 11-29-2022 Refill Jeana Chi Work Phone: [facility] [place] Comment on above: Refill Request Start: 11-26-2022 Telephone encounter Miranda Joseph Work Phone: Podiatry Comment on above: Appointment Start: 10-28-2022 End: 10-28-2022 Patient encounter procedure Jeana Guerra MD Work Phone: [facility] [place] Comment on above: Hyperlipidemia, unsp ecified hyperlipidemia type; Essential hypertension Start: 10-21-2022 Refill Jeana Chi Work Phone: [facility] Comment on above: Refill Request Start: 09-29-2022 Telephone encounter Jeana pollock MD Work Phone: [facility] [place] Comment on above: Consult Start: 09-03-2022 End: 09-03-2022 ambulatory [facility] Work Phone: Start: 09-03-2022 End: 09-03-2022 Patient encounter procedure [facility] Start: 08-31-2022 End: 09-20-2022 ambulatory [facility] Work Phone: Start: 08-31-2022 End: 09-20-2022 Discharged Rec[facility]ring [facility] Start: 08-31-2022 [facility] Start: 08-30-2022 End: 08-30-2022 Subsequent hospital visit by physician Amy HERNANDEZ Work Phone: [facility] [place] Comment on above: Arrived Start: 08-03-2022 ambulatory Jeana Chi Work Phone: [facility] [place] Start: 06-29-2022 Refill Jeana Chi Work Phone: [facility] Comment on above: Refill Request Start: 04-06-2022 Telephone encounter Greta Arreola APRN.CNP Work Phone: [facility] [place] Comment on above: Blood Pressure Check ; Patient Update Start: 04-06-2022 End: 04-06-2022 Nursing evaluation of patient and report Mi Nurse Work Phone: Family Medicine [place] Comment on above: Essential hypertensi on (Primary Dx) Start: 03-30-2022 End: 03-30-2022 Patient encounter procedure Miranda De Work Phone: Podiatry Comment on above: Onychomycosis (Prima ry Dx); Type 2 diabetes mellitus with peripheral neuropathy (HCC); Pain in toe of right foot; Pain in toe of left foot Start: 03-22-2022 End: 03-22-2022 Patient encounter procedure Jeana Guerra MD Work Phone: [facility] [place] Comment on above: Hypothyroidism, unsp ecified type (Primary Dx); Type 2 diabetes mellitus with peripheral neuropathy (HCC); Acquired hypothyroidism; Hypertension goal BP (blood pressure) < 150/90; Controlled type 2 diabetes mellitus without complication, without long-term current use of insulin (HCC); 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lbuminuria, without long-term current use of insulin (HCC); Essential hypertension; Diabetic polyneuropathy associated with type 2 diabetes mellitus (HCC); Onychomycosis Start: 03-09-2022 ambulatory Jeana Chi Work Phone: Internal Medicine [facility] Start: 02-24-2018 End: 02-24-2018 Ambulatory [facility] Start: 02-27-2009 Patient encounter status Effie HERNANDEZ Work Phone: [facility] Work Phone: Procedures Date Procedure Procedure Detail Performing Clinician Start: 04-16-2025 X-ray of chest, PA a nd lateral views Dr. Jeana Guerra MD Work Phone: Start: 04-16-[address] Jeana Guerra MD Work Phone: Start: 01-31-2025 X-ray of chest, PA a nd lateral views Dr. Jeana Guerra MD Work Phone: Start: 01-23-2025 Evaluation of diagno stic study results Dr. Jeana Guerra MD Work Phone: Start: 01-11-[address] Jeana Guerra MD Work Phone: Start: 01-11-2025 Measurement of renal function Dr. Jeana Guerra MD Work Phone: Comment on above: GFR Calc Start: 01-10-2025 Assay of phosphorus inorganic Dr. Jeana Guerra MD Work Phone: Start: 01-10-[address] Jeana Guerra MD Work Phone: Start: 01-09-2025 Blood count leukocyt e wbc automated Dr. Jeana Guerra MD Work Phone: Start: 01-09-[address] Jeana Guerra MD Work Phone: Start: 01-09-2025 Plain chest X-ray Dr. Eri Guerra MD Work Phone: Start: 01-09-[address] Jeana Guerra MD Work Phone: Start: 01-09-2025 Gram stain microscopy D flor Guerra MD Work Phone: Start: 01-09-2025 End: 01-09-2025 Microbial culture, body fluid Dr. Jeana Guerra MD Work Phone: Start: 01-09-[address] Jeana Guerra MD Work Phone: Start: 01-08-2025 Glucose measurement, body fluid Dr. Jeana Guerra MD Work Phone: Start: 01-08-2025 Lactate dehydrogenas e measurement, body fluid Dr. Jeana Guerra MD Work Phone: Start: 01-08-2025 Ultrasonic guidance for thoracentesis Dr. Jeana Guerra MD Work Phone: Start: 01-08-2025 Plain chest X-ray Dr. Eri Guerra MD Work Phone: Start: 01-08-2025 Ecg routine ecg w/le ast 12 lds i&r only Jeana Guerra MD Work Phone: Start: 09-10-2024 Screening mammograph y bi 2-view breast inc cad Amy Carreon APRN-WATCH CRYSTAL CUTTER Work Phone: Start: 03-29-2024 Adult depression scr eening assessment Jeana Guerra MD Work Phone: Start: 12-07-2023 Radex hand minimum 3 views Grady Wells MD, PhD Work Phone: Start: 09-05-2023 Screening mammograph y bi 2-view breast inc cad Amy Lauri WIRE INSPECTOR-WATCH CRYSTAL CUTTER Work Phone: Start: 09-03-2022 MRI of brain with contrast Start: 08-30-2022 Screening mammograph y bi 2-view breast inc cad Amy Lauri WIRE INSPECTOR-WATCH CRYSTAL CUTTER Work Phone: H/O: surgery History of lumpe ctomy of right breast Plan of Treatment Date Care Activity Detail Author Start: 03-01-2026 Diabetic foot examination Diabetic Foot Exam [facility] Start: 02-27-2026 Hepatitis B surface antibody level LDL Cholesterol [facility] Start: 10-09-2025 Glaucoma screening Dilated Retinal Exam [facility] Start: 09-16-2025 End: 09-16-2025 Patient encounter procedure [facility] Mammography at [facility] Start: 09-10-2025 End: 10-11-2025 MG Breast - bilateral Screening MAMMO SCREENING WITH DAVION BILATERAL Imaging Routine Ductal carcinoma in situ (DCIS) of right breast Encounter for screening mammogram for malignant neoplasm of breast Expected: 09/10/2025, Expires: 10/11/2025 [facility] Comment on above: Expected: 09/10/2025, Expires: Start: 09-10-2025 Screening for malignant neoplasm of breast MAMMOGRAM SCREENING DISCUSSION [facility] Start: 09-06-2025 Hepatitis B surface antibody level LDL Cholesterol [facility] Start: 08-29-2025 Hemoglobin A1c measurement HbA1C [facility] Start: 08-02-2025 End: 08-02-2025 Patient encounter procedure 08/02/2025 1:00 PM EDT Office Visit Podiatry [address] [place], [place] [id number] Miranda De [address] [place] [address] 3 mo diab nail follow up Podiatry Comment on above: 3 mo diab nail follow up Start: 04-29-2025 End: 04-29-2025 Patient encounter procedure 04/29/2025 10:00 AM EDT Office Visit [facility] [address] [place] [address] Jeana Guerra MD [address] [place] [address] 2 month f/u [facility] Comment on above: 2 month f/u Start: 04-16-2025 Verification routine [facility] Start: 04-16-2025 Admission procedure [facility] Start: 04-16-2025 [facility] Start: 04-16-2025 Hospital admission, emergency, from emergency room, medical nature [facility] Start: 04-16-2025 [facility] Start: 04-10-2025 Hepatitis B surface antibody level LDL Cholesterol [facility] Start: 03-30-2025 Diabetic foot examination Diabetic Foot Exam [facility] Start: 03-29-2025 Anxiety Screening Anxiety Screening [facility] Start: 03-29-2025 Depression Screening Depression Screening [facility] Start: 03-07-2025 Hemoglobin A1c measurement HbA1C [facility] Start: 03-04-2025 End: 03-04-2025 Patient encounter procedure 03/04/2025 9:40 AM EDT Office Visit [facility] [address] [place] [address] Jeana Guerra MD [address] [place] [address] 6 month follow up [facility] Comment on above: 6 month follow up Start: 03-01-2025 End: 03-01-2025 Patient encounter procedure Podiatry Comment on above: 3 month follow up nail care Start: 01-15-2025 End: 01-15-2025 Patient encounter procedure 01/15/2025 2:00 PM EST Office Visit Podiatry [place] [address] Miranda De [address] [address] 3 month follow up nail care Podiatry Comment on above: 3 month follow up nail care Start: 01-11-2025 Patient discharge [facility] Start: 01-09-2025 Dietary regime [facility] Start: 01-09-2025 Vital signs measurements [facility] Start: 01-09-2025 [facility] Start: 01-09-2025 Referral to urban renewal manager [facility] Start: 01-08-2025 Application of elastic bandage [facility] Start: 01-08-2025 Elevation of affected extremity [facility] Start: 01-08-2025 Notification of physician [facility] Start: 01-08-2025 Patient education [facility] Start: 01-08-2025 Oxygen therapy [facility] Start: 01-08-2025 Ambulation without limitation [facility] Start: 01-08-2025 Assessment of risk of venous thromboembolism [facility] Start: 01-08-2025 Incentive spirometry [facility] Start: 01-08-2025 Insertion of catheter into peripheral vein [facility] Start: 01-08-2025 Measuring intake and output [facility] Start: 01-08-2025 Providing care according to standard [facility] Start: 01-08-2025 Referral to occupational therapist [facility] Start: 01-08-2025 Referral to service [facility] Start: 01-08-2025 [facility] Start: 01-08-2025 Following clinical pathway protocol [facility] Start: 01-08-2025 End: 04-09-2025 Comprehensive metabolic 2000 panel - Serum or Plasma COMPREHENSIVE METABOLIC PANEL Lab Routine Increased abdominal girth Expected: 01/08/2025, Expires: 04/09/2025 [facility] Comment on above: Expected: 01/08/2025, Expires: Start: 01-08-2025 End: 04-09-2025 Magnesium [Mass/volume] in Serum or Plasma MAGNESIUM Lab Routine Palpitations Expected: 01/08/2025, Expires: 04/09/2025 [facility] Comment on above: Expected: 01/08/2025, Expires: Start: 01-08-2025 End: 04-09-2025 Natriuretic peptide.B prohormone N-Terminal [Mass/volume] in Serum or Plasma NT PRO BNP Lab Routine Increased abdominal girth Cardiac arrhythmia, unspecified cardiac arrhythmia type Palpitations Dyspnea, unspecified type Expected: 01/08/2025, Expires: 04/09/2025 [facility] Comment on above: Expected: 01/08/2025, Expires: Start: 01-08-2025 End: 04-09-2025 Thyrotropin [Units/volume] in Serum or Plasma THYROID STIMULATING HORMONE Lab Routine Palpitations Expected: 01/08/2025, Expires: 04/09/2025 [facility] Comment on above: Expected: 01/08/2025, Expires: Start: 01-08-2025 Admission procedure [facility] Start: 01-08-2025 Patient referral to dietitian [facility] Start: 11-21-2024 Advance Directive Discussion Advance Directive Discussion [facility] Start: 10-11-2024 End: 10-11-2024 Patient encounter procedure Podiatry Comment on above: 3 MONTH FOLLOW UP Start: 09-29-2024 Hepatitis B Vaccine (1 of 3 - Risk 3-dose series) Hepatitis B Vaccine (1 of 3 - Risk 3-dose series) [facility] Comment on above: Postponed from 1999 (Declined at t his time) Start: 09-29-2024 RSV Vaccine (1 - 1-dose 60+ series) RSV Vaccine (1 - 1-dose 60+ series) [facility] Comment on above: Postponed from 1999 (Declined at t his time) Start: 09-29-2024 Shingrix Vaccine (2 of 3) Shingrix Vaccine (2 of 3) [facility] Comment on above: Postponed from 10/01/2009 (Declined at t his time) Start: 09-29-2024 Urine microalbumin profile DTaP,Tdap,Td Vaccine (2 - Td or Tdap) [facility] Comment on above: Postponed from 09/20/2022 (Declined at t his time) Start: 09-28-2024 Covid-19 Vaccine () Covid-19 Vaccine () [facility] Start: 09-27-2024 Hemoglobin A1c measurement HbA1C [facility] Start: 09-22-2024 Hepatitis B surface antibody level LDL Cholesterol [facility] Start: 09-21-2024 End: 09-21-2024 Patient encounter procedure 09/21/2024 2:00 PM EDT Office Visit Podiatry [address] [place], [place] [id number] Miranda De [address] [place] [address] 3 MONTH FOLLOW UP Podiatry Comment on above: 3 MONTH FOLLOW UP Start: 09-18-2024 End: 09-18-2024 Patient encounter procedure 09/18/2024 11:20 AM EDT Office Visit Internal Medicine [facility] [address] [place], [place] [id number] Jeana Guerra MD [address] [place] [address] 6 month follow up [facility] Comment on above: 6 month follow up Start: 09-16-2024 Glaucoma screening Dilated Retinal Exam [facility] Start: 09-16-2024 Hepatitis C antibody, confirmatory test Dilated Retinal Exam [facility] Start: 09-10-2024 End: 09-10-2024 Patient encounter procedure [facility] Mammography at [facility] Start: 09-05-2024 Screening for malignant neoplasm of breast MAMMOGRAM SCREENING DISCUSSION [facility] Start: 07-22-2024 COVID-19 VACCINE () COVID-19 VACCINE () [facility] Start: 07-22-2024 COVID-19 VACCINE () COVID-19 VACCINE () [facility] Start: 07-22-2024 Covid-19 Vaccine () Covid-19 Vaccine () [facility] Start: 07-22-2024 Influenza vaccination [facility] Start: 04-19-2024 3 comp foot exam completed DIABETIC FOOT EXAM [facility] Start: 04-19-2024 Diabetic foot examination Diabetic Foot Exam [facility] Start: 04-12-2024 End: 07-12-2024 Comprehensive metabolic 2000 panel - Serum or Plasma COMPREHENSIVE METABOLIC PANEL Lab Routine Hyperlipidemia, unspecified hyperlipidemia type Function kidney decreased Expected: 04/12/2024 (Approximate), Expires: 07/12/2024 [facility] Work Phone: Comment on above: Expected: 04/12/2024 (Approximate), Expi res: 07/12/2024 Start: 04-12-2024 End: 04-12-2024 Patient encounter procedure 04/12/2024 8:20 AM EDT Office Visit Internal Medicine [facility] [address] [place] [address] Greta Arreola APRN.WATCH [employer]YSTAL [employer]TER [address] [place] [address] 2 Week F/U-BP & lab results [facility] Comment on above: 2 Week F/U-BP & lab results Start: 04-10-2024 End: 04-10-2024 ambulatory 04/10/2024 11:00 AM EDT [facility] [address] [place] [address] [facility] Start: 04-04-2024 End: 04-04-2024 Patient encounter procedure 04/04/2024 11:40 AM EDT Office Visit Orthopaedics [address] [place] [address] Argentina Escobar, MEAGANC [address] [place] [address] 4wk follow up Orthopaedics Comment on above: 4wk follow up Start: 03-30-2024 End: 03-30-2024 Patient encounter procedure 03/30/2024 11:00 AM EDT Office Visit Podiatry [address] [place] [address] Miranda De [address] [place] [address] 3 month follow up nailcare Podiatry Comment on above: 3 month follow up nailcare Start: 03-29-2024 End: 06-28-2024 Lipid 1996 panel - Serum or Plasma LIPID PANEL BASIC Lab Routine Hyperlipidemia, unspecified hyperlipidemia type Expected: 03/29/2024, Expires: 06/28/2024 [facility] Comment on above: Expected: 03/29/2024, Expires: Start: 03-29-2024 End: 03-29-2024 Patient encounter procedure 03/29/2024 10:40 AM EDT Office Visit [facility] [address] [place] [address] Greta Arreola APRN.[employer]ATCH [employer]TER [address] [place] [address] 6 month follow up [facility] Comment on above: 6 month follow up Start: 03-22-2024 Hemoglobin A1c measurement HbA1C [facility] Start: 03-22-2024 Hemoglobin A1c/Hemoglobin.total in Blood HbA1C [facility] Start: 03-13-2024 End: 06-12-2024 Basic metabolic 2000 panel - Serum or Plasma BASIC METABOLIC PANEL Lab Routine Diabetic polyneuropathy associated with type 2 diabetes mellitus (HCC) Expected: 03/13/2024, Expires: 06/12/2024 [facility] Work Phone: Comment on above: Expected: 03/13/2024, Expires: Start: 03-13-2024 End: 06-12-2024 CBC panel - Blood by Automated count COMPLETE BLOOD COUNT Lab Routine Diabetic polyneuropathy associated with type 2 diabetes mellitus (HCC) Expected: 03/13/2024, Expires: 06/12/2024 [facility] Comment on above: Expected: 03/13/2024, Expires: Start: 03-13-2024 End: 06-12-2024 Hemoglobin A1c in Blood HEMOGLOBIN A1C Lab Routine Diabetic polyneuropathy associated with type 2 diabetes mellitus (HCC) Expected: 03/13/2024, Expires: 06/12/2024 [facility] Comment on above: Expected: 03/13/2024, Expires: Start: 03-13-2024 End: 06-12-2024 Thyrotropin [Units/volume] in Serum or Plasma THYROID STIMULATING HORMONE Lab Routine Hypothyroidism Expected: 03/13/2024, Expires: 06/12/2024 [facility] Comment on above: Expected: 03/13/2024, Expires: Start: 12-19-2023 Covid-19 Vaccine () Covid-19 Vaccine () [facility] Start: 11-21-2023 Advance Directive Discussion Advance Directive Discussion [facility] Start: 11-21-2023 Behavioral Health Screening Behavioral Health Screening [facility] Start: 11-21-2023 Depression Assessment Depression Assessment [facility] Start: 10-07-2023 Hemoglobin A1c/Hemoglobin.total in Blood HBA1C [facility] Start: 09-13-2023 End: 12-13-2023 Hemoglobin A1c in Blood HGB A1C Lab Routine Diabetic polyneuropathy associated with type 2 diabetes mellitus (HCC) Expected: 09/13/2023, Expires: 12/13/2023 [facility] Work Phone: Comment on above: Expected: 09/13/2023, Expires: 4 Start: 09-13-2023 End: 12-13-2023 Lipid 1996 panel - Serum or Plasma LIPID PANEL BASIC Lab Routine Hyperlipidemia Expected: 09/13/2023, Expires: 12/13/2023 [facility] Work Phone: Comment on above: Expected: 09/13/2023, Expires: Start: 09-05-2023 End: 09-05-2023 Patient encounter procedure [facility] Mammography at [facility] Start: 08-30-2023 Screening for malignant neoplasm of breast MAMMOGRAM SCREENING DISCUSSION [facility] Start: 08-29-2023 End: 08-29-2023 Patient encounter procedure 08/29/2023 Office Visit Cardiovascular Medicine Adrian Jeong, WIRE INSPECTOR-WATCH CRYSTAL CUTTER [address] [place] [address] [facility] Start: 08-18-2023 Hepatitis C antibody, confirmatory test DILATED RETINAL EXAM [facility] Start: 07-22-2023 COVID-19 VACCINE () COVID-19 VACCINE () [facility] Start: 07-22-2023 Influenza vaccination INFLUENZA VACCINE (#1) [facility] Start: 03-29-2023 End: 05-29-2023 CBC panel - Blood by Automated count CBC Lab Routine Diabetic polyneuropathy associated with type 2 diabetes mellitus (HCC) Expected: 03/29/2023, Expires: 05/29/2023 [facility] Work Phone: Comment on above: Expected: 03/29/2023, Expires: 3 Start: 03-29-2023 End: 05-29-2023 Hemoglobin A1c in Blood HGB A1C Lab Routine Diabetic polyneuropathy associated with type 2 diabetes mellitus (HCC) Expected: 03/29/2023, Expires: 05/29/2023 [facility] Work Phone: Comment on above: Expected: 03/29/2023, Expires: 3 Start: 03-29-2023 End: 05-29-2023 Thyrotropin [Units/volume] in Serum or Plasma TSH BLD Lab Routine Hypothyroidism Expected: 03/29/2023, Expires: 05/29/2023 [facility] Work Phone: Comment on above: Expected: 03/29/2023, Expires: 3 Start: 03-22-2023 3 comp foot exam completed DIABETIC FOOT EXAM [facility] Start: 02-10-2023 Hemoglobin A1c/Hemoglobin.total in Blood HBA1C [facility] Start: 01-24-2023 End: 01-25-2024 US.doppler Carotid arteries - bilateral VASC DUPLEX CAROTID BILATERAL Imaging Routine Leg swelling Lipodermatosclerosis of both lower extremities Chronic venous insufficiency Lymphedema Abdominal pannus Leg cramps Pain in both lower extremities Bruit of left carotid artery Expected: 01/24/2023, Expires: 01/25/2024 [facility] Comment on above: Expected: 01/24/2023, Expires: 4 Start: 11-29-2022 End: 01-29-2023 CBC W Auto Differential panel - Blood CBC + DIFF Lab Routine Essential hypertension 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lbuminuria, without long-term current use of insulin (HCC) Expected: 11/29/2022, Expires: 01/29/2023 [facility] Work Phone: Comment on above: Expected: 11/29/2022, Expires: 3 Start: 11-29-2022 End: 01-29-2023 Comprehensive metabolic 2000 panel - Serum or Plasma COMP METABOLIC PANEL Lab Routine Essential hypertension Hyperlipidemia, unspecified hyperlipidemia type 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lbuminuria, without long-term current use of insulin (HCC) Expected: 11/29/2022, Expires: 01/29/2023 [facility] Work Phone: Comment on above: Expected: 11/29/2022, Expires: 3 Start: 11-29-2022 End: 01-29-2023 Hemoglobin A1c in Blood HGB A1C Lab Routine 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lbuminuria, without long-term current use of insulin (HCC) Expected: 11/29/2022, Expires: 01/29/2023 [facility] Work Phone: Comment on above: Expected: 11/29/2022, Expires: 3 Start: 11-29-2022 End: 01-29-2023 Lipid 1996 panel - Serum or Plasma LIPID PANEL BASIC Lab Routine Hyperlipidemia, unspecified hyperlipidemia type Expected: 11/29/2022, Expires: 01/29/2023 [facility] Work Phone: Comment on above: Expected: 11/29/2022, Expires: 3 Start: 11-29-2022 End: 01-29-2023 Thyrotropin [Units/volume] in Serum or Plasma TSH BLD Lab Routine Hypothyroidism, adult Expected: 11/29/2022, Expires: 01/29/2023 [facility] Work Phone: Comment on above: Expected: 11/29/2022, Expires: 3 Start: 11-21-2022 ADVANCE DIRECTIVE DISCUSSION ADVANCE DIRECTIVE DISCUSSION [facility] Start: 11-21-2022 DEPRESSION ASSESSMENT DEPRESSION ASSESSMENT [facility] Start: 09-20-2022 Tetanus vaccination TETANUS [facility] Start: 09-20-2022 Urine microalbumin profile [facility] Start: 09-15-2022 Hemoglobin A1c/Hemoglobin.total in Blood HBA1C [facility] Start: 08-03-2022 End: 10-03-2022 Hemoglobin A1c in Blood HGB A1C Lab Routine Diabetic polyneuropathy associated with type 2 diabetes mellitus (HCC) Expected: 08/03/2022, Expires: 10/03/2022 [facility] Work Phone: Comment on above: Expected: 08/03/2022, Expires: 2 Start: 08-03-2022 End: 10-03-2022 SCHEDULE LAB TESTING SCHEDULE LAB TESTING Lab Routine Expected: 08/03/2022, Expires: 10/03/2022 [facility] Work Phone: Comment on above: Expected: 08/03/2022, Expires: 2 Start: 07-22-2022 Influenza vaccination INFLUENZA (#1) [facility] Start: 04-15-2022 COVID-19 VACCINE (5 - Booster for Moderna series) COVID-19 VACCINE (5 - Booster for Moderna series) [facility] Start: 03-20-2022 Hepatitis C antibody, confirmatory test DILATED RETINAL EXAM [facility] Start: 03-18-2022 Hepatitis B surface antibody level LDL CHOLESTEROL [facility] Start: 03-17-2022 Hemoglobin A1c/Hemoglobin.total in Blood HBA1C [facility] Start: 03-09-2022 End: 05-09-2022 CBC panel - Blood by Automated count CBC Lab Routine Diabetic polyneuropathy associated with type 2 diabetes mellitus (HCC) Expected: 03/09/2022, Expires: 05/09/2022 [facility] Work Phone: Comment on above: Expected: 03/09/2022, Expires: 2 Start: 03-09-2022 End: 05-09-2022 Hemoglobin A1c/Hemoglobin.total in Blood HGB A1C Lab Routine Diabetic polyneuropathy associated with type 2 diabetes mellitus (HCC) Expected: 03/09/2022, Expires: 05/09/2022 [facility] Work Phone: Comment on above: Expected: 03/09/2022, Expires: 2 Start: 03-09-2022 End: 05-09-2022 SCHEDULE LAB TESTING SCHEDULE LAB TESTING Lab Routine Expected: 03/09/2022, Expires: 05/09/2022 [facility] Work Phone: Comment on above: Expected: 03/09/2022, Expires: 2 Start: 03-09-2022 End: 05-09-2022 Thyrotropin [Units/volume] in Serum or Plasma TSH BLD Lab Routine Hypothyroidism Expected: 03/09/2022, Expires: 05/09/2022 [facility] Work Phone: Comment on above: Expected: 03/09/2022, Expires: 2 Start: 12-05-2021 3 comp foot exam completed DIABETIC FOOT EXAM [facility] Start: 11-21-2021 ADVANCE DIRECTIVE DISCUSSION ADVANCE DIRECTIVE DISCUSSION [facility] Start: 01-03-2021 Screening for malignant neoplasm of colon COLORECTAL CANCER SCREENING DISCUSSION [facility] Start: 02-24-2010 Potassium [Moles/volume] in Serum or Plasma POTASSIUM [facility] Start: 10-01-2009 SHINGRIX VACCINE (2 of 3) SHINGRIX VACCINE (2 of 3) [facility] Start: 10-01-2009 Zoster vaccine hzv live for subcutaneous use ZOSTER (SHINGLES) VACCINE (2 of 3) [facility] Start: 1999 Hepatitis B Vaccine (1 of 3 - Risk 3-dose series) Hepatitis B Vaccine (1 of 3 - Risk 3-dose series) [facility] Start: 1999 RSV Vaccine (1 - 1-dose 60+ series) RSV Vaccine (1 - 1-dose 60+ series) [facility] Start: 1984 Screening for malignant neoplasm of colon COLORECTAL CANCER SCREENING DISCUSSION [facility] Start: 1960 Screening for malignant neoplasm of cervix CERVICAL CANCER SCREENING DISCUSSION [facility] Start: 06-03-1940 COVID-19 VACCINE (#1) COVID-19 VACCINE (#1) [facility] Start: 1939 Hepatitis B vaccination HEP B VACCINE (1 of 3 - 3-dose series) [facility] Start: 1939 Screening for osteoporosis DEXA SCAN DISCUSSION [facility] Start: 1939 Thyroid stimulating hormone measurement TSH [facility] Bilirubin measuremen t, urine [facility] Cardioversion [facility] End: 08-30-2025 CBC panel - Blood by Automated count COMPLETE BLOOD COUNT Lab Routine Type 2 diabetes mellitus with peripheral neuropathy (HCC) Every 6 months for 12 Occurrences starting 08/30/2024 until 08/30/2025 [facility] Comment on above: Every 6 months for 12 Occurrences starti ng 08/30/2024 until 08/30/2025 End: 08-30-2025 Comprehensive metabolic 2000 panel - Serum or Plasma COMPREHENSIVE METABOLIC PANEL Lab Routine Type 2 diabetes mellitus with peripheral neuropathy (HCC) Every 6 months for 12 Occurrences starting 08/30/2024 until 08/30/2025 [facility] Comment on above: Every 6 months for 12 Occurrences starti ng 08/30/2024 until 08/30/2025 ECG COMPLETE ECG COMPLETE ECG Routine Cardiac arrhythmia, unspecified cardiac arrhythmia type 01/08/2025 10:02 AM EST [facility] End: 01-08-2026 Echocardiography ECHO Cardiology OCTAVIA Increased abdominal girth Cardiac arrhythmia, unspecified cardiac arrhythmia type Edema due to malnutrition, due to unspecified malnutrition type (HCC) Palpitations 1 Occurrences starting 01/08/2025 until 01/08/2026 [facility] Work Phone: Comment on above: 1 Occurrences starting 01/08/2025 until 01/08/2026 Hemoglobin [Presence ] in Urine [facility] End: 08-30-2025 Hemoglobin A1c in Blood HEMOGLOBIN A1C Lab Routine Type 2 diabetes mellitus with peripheral neuropathy (HCC) Every 3 months for 24 Occurrences starting 08/30/2024 until 08/30/2025 [facility] Work Phone: Comment on above: Every 3 months for 24 Occurrences starti ng 08/30/2024 until 08/30/2025 End: 08-30-2025 Lipid 1996 panel - Serum or Plasma LIPID PANEL BASIC Lab Routine Type 2 diabetes mellitus with peripheral neuropathy (HCC) Every 6 months for 12 Occurrences starting 08/30/2024 until 08/30/2025 [facility] Comment on above: Every 6 months for 12 Occurrences starti ng 08/30/2024 until 08/30/2025 Measurement of keton es in urine using dipstick [facility] Microscopic urinalysis [facility] OUTSIDE VENDOR CARDI AC OUTPATIENT EXTENDED RHYTHM RECORDING (WITHOUT TELEMETRY) OUTSIDE VENDOR CARDIAC OUTPATIENT EXTENDED RHYTHM RECORDING (WITHOUT TELEMETRY) Holter Routine Palpitations Dyspnea, unspecified type Ordered: 01/08/2025 [facility] Comment on above: Ordered: 01/08/2025 Patient Education RAD RN Thoracentesis [facility] Work Phone: Patient referral [facility] Work Phone: pH of Urine [facility] Specific gravity of Urine [facility] End: 08-30-2025 Thyrotropin [Units/volume] in Serum or Plasma THYROID STIMULATING HORMONE Lab Routine Type 2 diabetes mellitus with peripheral neuropathy (HCC) Every 3 months for 24 Occurrences starting 08/30/2024 until 08/30/2025 [facility] Comment on above: Every 3 months for 24 Occurrences starti ng 08/30/2024 until 08/30/2025 Troponin T.cardiac [Mass/volume] in Serum or Plasma by High sensitivity method [facility] Urine blood test [facility] Urine dipstick for glucose [facility] Urine dipstick for leukocyte esterase [facility] Urine dipstick for nitrite [facility] Urine dipstick for protein [facility] Urine examination [facility] Urine microscopy: epithelial cells [facility] Urine Microscopy: wh ite cells [facility] Urobilinogen [Presen ce] in Urine [facility] End: 02-07-2026 US Abdomen US ASCITES SURVEY Radiology Routine Increased abdominal girth Edema due to malnutrition, due to unspecified malnutrition type (HCC) Dyspnea, unspecified type 1 Occurrences starting 01/08/2025 until 02/07/2026 [facility] Comment on above: 1 Occurrences starting 01/08/2025 until 02/07/2026 End: 02-07-2026 US Abdomen RUQ US ABD RIGHT UPPER QUADRANT Radiology Routine Increased abdominal girth Edema due to malnutrition, due to unspecified malnutrition type (HCC) Dyspnea, unspecified type 1 Occurrences starting 01/08/2025 until 02/07/2026 [facility] Comment on above: 1 Occurrences starting 01/08/2025 until 02/07/2026 US.doppler Lower extremity vein - bilateral VASC DUPLEX VENOUS WITH REFLUX BILATERAL LOWER Imaging Routine Leg swelling Lipodermatosclerosis of both lower extremities Chronic venous insufficiency Lymphedema Abdominal pannus Leg cramps Ordered: 01/24/2023 [facility] Comment on above: Ordered: 01/24/2023 [facility] Immunizations Immunization Date Immunization Notes Care Provider [facility] 08-03-2024 COVID-19 original vaccine, full dose, monovalent (MODERNA) Jeana Guerra MD Work Phone: [facility] 08-03-2024 influenza, high dose seasonal, preservative-free Jeana Guerra MD Work Phone: [facility] 10-19-2023 respiratory syncytia l virus (RSV) vaccine, bivalent (ABRYSVO) Grady Wells MD, PhD Work Phone: [facility] 08-19-2023 COVID-19 vaccine, ag e 12+ yr, season (MODERNA) Greta Arreola APRN.GIL Work Phone: [facility] 08-19-2023 influenza (HD-IIV4) vaccine, age 65+ yr, high dose, quadrivalent, PF (FLUZONE HIGH-DOSE) Greta Arreola WIRE INSPECTOR.WATCH CRYSTAL CUTTER Work Phone: [facility] 08-19-2023 influenza virus vacc ine, unspecified formulation Jeana Guerra MD Work Phone: [facility] 08-04-2022 influenza, high dose seasonal, preservative-free Jeana Guerra MD Work Phone: [facility] Work Phone: 08-04-2022 influenza virus vacc ine, unspecified formulation Adrian Jeong WIRE INSPECTOR-WATCH CRYSTAL CUTTER Work Phone: [facility] 09-21-2021 influenza, high-dose , quadrivalent vaccine (FLUZONE HIGH DOSE QUADRIVALENT) Jeana Guerra MD Work Phone: [facility] Work Phone: 01-08-2021 COVID-19 vaccine, fu ll dose (MODERNA) Jeana Guerra MD Work Phone: [facility] Work Phone: 12-11-2020 COVID-19 vaccine, fu ll dose (MODERNA) Jeana Guerra MD Work Phone: [facility] Work Phone: 09-01-2020 influenza, high-dose , quadrivalent vaccine (FLUZONE HIGH DOSE QUADRIVALENT) Jeana Guerra MD Work Phone: [facility] Work Phone: 09-24-2019 influenza, high dose seasonal, preservative-free Jeana Guerra MD Work Phone: [facility] Work Phone: 08-21-2018 influenza, high dose seasonal, preservative-free Greta Arreola WIRE INSPECTOR.WATCH CRYSTAL CUTTER Work Phone: [facility] 09-05-2017 influenza, high dose seasonal, preservative-free Jeana Guerra MD Work Phone: [facility] Work Phone: 08-25-2016 influenza, high dose seasonal, preservative-free Jeana Guerra MD Work Phone: [facility] Work Phone: 10-02-2015 pneumococcal conjuga te vaccine, 13 valent Jeana Guerra MD Work Phone: [facility] Work Phone: 09-01-2015 influenza, high dose seasonal, preservative-free Jeana Guerra MD Work Phone: [facility] 08-23-2013 influenza virus vacc ine, unspecified formulation Jeana Guerra MD Work Phone: [facility] 09-20-2012 influenza virus vacc ine, unspecified formulation Jeana Guerra MD Work Phone: [facility] Work Phone: 09-20-2012 tetanus toxoid, redu linsey diphtheria toxoid, and acellular pertussis vaccine, adsorbed Jeana Guerra MD Work Phone: [facility] Work Phone: 11-04-2009 novel influenza-H1N1 -09, preservative-free, injectable Greta Arreola APRN.WATCH CRYSTAL CUTTER Work Phone: [facility] 08-06-2009 zoster vaccine, live Jeana Guerra MD Work Phone: [facility] 08-06-2009 zoster vaccine, unspecified formulation Amy Carreon WIRE INSPECTOR-WATCH CRYSTAL CUTTER Work Phone: [facility] 11-21-2005 pneumococcal polysaccharide vaccine, 23 valent Jeana Guerra MD Work Phone: [facility] Work Phone: Payers Date Payer Category Payer Self-pay [id number] 2023 Medicare (Managed Care) MAURICIO KING [id number] 2023 Medicare [id number] 2016 Unknown ANTHEM BLUE CARD TRADITIONAL OOS [id number] 2016-Present [phone] [address] [place] [address] Indemnity [id number]. [id number] 2016 Unknown [id number] 1.13.159. [id number] 2004 Medicare MEDICARE MEDICAR E A AND B [id number] 2004-Present [phone] [place] [address] Medicare [id number]. [id number] 2004 Medicare [id number]. 1.13.159. 2.7.3.133978.315 1939 Unknown [id number] 2.0.1.646462.3.579. 2.594 1940 Unknown [id number] 2.0.1.523754.3.579. 2.594 1939 Unknown [id number] 2..1.937382.3.579. 2.594 Medicare MEDICARE PART A B [id number] Unknown ANTHEM [id number] Unknown [id number] 2.16.840.1.510504.3.579. 2.462 Unknown [id number] 2.16.840.1.965054.3.579. 2.462 Unknown [id number] 2.16.840.1.785145.3.579. 2.462 Unknown [id number] 2.16.840.1.336718.3.579. 2.462 Unknown [id number] 2.16.840.1.314343.3.579. 2.462 Unknown [id number] 2.16.840.1.474611.3.579. 2.462 Unknown [id number] 2.16840.1.288333.3.579. 2.462 Unknown [id number] 2.16840.1.951132.3.579. 2.462 Unknown [id number] 2.16840.1.164667.3.579. 2.462 Unknown [id number] 2.16.840.1.897065.3.579. 2.462 Unknown [id number] 2.16.840.1.341612.3.579. 2.462 Unknown [id number] 2.16.840.1.388377.3.579. 2.462 Unknown [id number] 2.16.840.1.382297.3.579. 2.462 Unknown [id number] 2.16840.1.378021.3.579. 2.462 Unknown [id number] 2.16.840.1.793008.3.579. 2.462 Unknown [id number] 2.16.840.1.930724.3.579. 2.462 Unknown [id number] 2.16.840.1.718404.3.579. 2.462 Unknown [id number] 2.16.840.1.846630.3.579. 2.462 Unknown [id number] 2.16.840.1.616639.3.579. 2.462 Unknown [id number] 2.16.840.1.758166.3.579. 2.462 Unknown [id number] 2.16.840.1.318373.3.579. 2.462 Unknown [id number] 2.16.840.1.653174.3.579. 2.462 Unknown [id number] 2.16.840.1.987247.3.579. 2.462 Unknown [id number] 2.16.840.1.190633.3.579. 2.462 Unknown [id number] 2.16.840.1.683088.3.579. 2.462 Unknown [id number] 2.16.840.1.833844.3.579. 2.462 Unknown [id number] 2.16.840.1.663519.3.579. 2.462 Unknown [id number] 2.16.840.1.862610.3.579. 2.462 Unknown [id number] 2.16.840.1.538595.3.579. 2.462 Unknown [id number] 2.16.840.1.152649.3.579. 2.462 Unknown [id number] 2.16.840.1.118703.3.579. 2.462 Unknown [id number] 2.16.840.1.519797.3.579. 2.462 Social History Date Type Detail Facility Start: 05-18-2011 End: 04-16-2025 Tobacco smoking status AZIS Never smoked tobacco [facility] Start: 11-04-2021 End: 03-04-2025 Alcohol intake Current drinker of alcohol (finding) [facility] Start: 08-26-2020 End: 10-25-2022 History SDOH Alcohol Frequency 1 [facility] Start: 12-15-2007 History SDOH Alcohol Comment Occasional Wine [facility] Start: 08-26-2020 End: 10-25-2022 History SDOH Social Connections Phone 98 [facility] Start: 08-26-2020 End: 10-25-2022 History SDOH Social Connections Get Together 2 [facility] Start: 05-27-2020 End: 09-22-2022 History SDOH Social Connections Living 3 [facility] Start: 05-27-2020 End: 10-25-2022 History SDOH Physical Activity DPW 0 [facility] Start: 08-21-2020 End: 09-22-2022 History SDOH Financial 5 [facility] Start: 05-27-2020 Education 18 [facility] Start: 1940 Sex Assigned At Female [facility] Start: 03-12-2022 End: 09-29-2022 Exposure to SARS-CoV-2 (event) Not sure [facility] Work Phone: Start: 05-18-2011 Tobacco use and exposure Smokeless tobacco non-user [facility] Start: 08-30-2022 End: 09-10-2024 Alcohol intake Current non-drinker of alcohol (finding) [facility] Start: 07-06-2009 Alcohol Comment rare [facility] Start: 1940 Sex Assigned At Not on file [facility] Start: 09-30-2017 Tobacco smoking status NHIS Unknown if ever smoked [facility] Work Phone: Start: 09-30-2017 Rare [facility] Start: 09-30-2017 None [facility] Start: 09-30-2017 Spouse/ Significant Other [facility] Start: 11-21-2017 Non-smoker [facility] Start: 01-14-2023 End: 01-24-2023 Exposure to SARS-CoV-2 (event) Unable to assess [facility] Start: 04-11-2023 End: 09-05-2023 History of Social function [facility] Start: 04-11-2023 End: 09-05-2023 Tobacco use panel [facility] How hard is it for y ou to pay for the very basics like food, housing, medical care, and heating Not hard at all [facility] (I/We) worried cheryl er (my/our) food would run out before (I/we) got money to buy more. Never true [facility] Start: 01-01-2020 Gender identity Identifies as female gender (finding) [facility] Start: 09-09-2023 End: 09-29-2023 Alcohol intake Ex-drinker (finding) [facility] Do you belong to any clubs or organizations such as holiness groups, unions, fraternal or athletic groups, or school groups? Yes [facility] Are you now , , , , never or living with a partner? [facility] How often to you hav e a drink containing alcohol? Monthly or less [facility] How often do you hav e 6 or more drinks on 1 occasion? Never [facility] Do you feel stress - tense, restless, nervous, or anxious, or unable to sleep at night because your mind is troubled all the time - these days [OSQ] Only a little [facility] In the past 12 month s, was there a time when you were not able to pay the mortgage or rent on time? No [facility] How many standard dr inks containing alcohol do you have on a typical day? 1 or 2 [facility] Do you feel stress - tense, restless, nervous, or anxious, or unable to sleep at night because your mind is troubled all the time - these days [OSQ] To some extent [facility] Start: 02-05-2025 End: 02-11-2025 Sex Female (finding) [facility] Medical Equipment Procedure Code Equipment Code Equipment Original Text Equipment Identifier Dates 0---Jerel Bn Smpx P Tobra Fd - [id number] Start: [id number] 5 [id number]-Riy-To-Y-Co nd Implant - [id number] Start: 02-20-2013 Comment on above: Description: TIBIAL TRAY FIXED BEARING [id number]-Cza-Md-W-Mt nd Implant - [id number] Start: 02-20-2013 Comment on above: Description: OVAL DO ME PATELLA 3 PEG [id number] 83023-Fhq-Lb-L-Ic nd Implant - [id number] Start: 02-20-2013 Comment on above: Description: FEMORAL CRUCIATE RETAINING [id number] 5 [id number]-Njc-Pz-L-Jr nd Implant - [id number] Start: 02-20-2013 Comment on above: Description: TIBIAL INSERT FIXED BEARING Cup Actb 50mm Pinn Sect Srs - [id number] Start: 03-20-2012 Comment on above: Description: Acetabu lar Shell Liner Actb Pinn +4mm Neut 50mm - [id number] Start: 03-20-2012 Comment on above: Description: Acetabu lar Liner Stem Fem 11mm Cmntls Clrls Crl - [id number] Start: 03-20-2012 Comment on above: Description: Femoral Stem Head Fem +5mm 12/14 32mm Hip - [id number] Start: 03-20-2012 Comment on above: Description: Ceramic Femoral Head Screw Bn 6.5mm 30mm Pinn Canc - [id number] Start: 03-20-2012 Comment on above: Description: Cancell ous Screw Screw Bn 6.5mm 20mm Pinn Canc - [id number] Start: 03-20-2012 Comment on above: Description: Cancell ous Screw [id number], [id number], [id number], [id number] Start: 12-26-2014 End: 03-04-2025 Comment on above: Test glucose 1x/nini y, 250.00, insulin use: No USE ONE NEEDLE FOR E ACH DOSE ONCE DAILY Test blood sugar(s) 1x/daily. Dx: 250.00. Insulin: No Functional Status Date Assessment Result Facility 01-11-2025 Functional status Ambulates;Up a d elvi;Chair [facility] Work Phone: 04-18-2015 Are you deaf, or do you have serious difficulty hearing No 04/18/2015 12:39 PM Kimberly Pate RN No [facility] 04-18-2015 Are you blind, or do you have serious difficulty seeing, even when wearing glasses No 04/18/2015 12:39 PM Kimberly Pate RN No [facility] 04-18-2015 Do you have serious difficulty walking or climbing stairs Yes 04/18/2015 12:39 PM Kimberly Pate RN Yes [facility] 04-18-2015 Do you have difficul ty dressing or bathing No 04/18/2015 12:39 PM EDT Kimberly Feng RN No [facility] 04-18-2015 Because of a physica l, mental, or emotional condition, do you have difficulty doing errands alone such as visiting a physician's office or shopping No 04/18/2015 12:39 PM EDT Kimberly Feng RN No [facility] Mental Status Date Assessment Result Facility 01-10-2025 Cognitive function Voice/Name [facility] Work Phone: 04-18-2015 Because of a physica l, mental, or emotional condition, do you have serious difficulty concentrating, remembering, or making decisions No 04/18/2015 12:39 PM EDT Kimberly Feng RN No [facility] Clinical Notes 04-13-2018 to 04-19-2025 Telephone Encounter - Jeana Guerra MD - 04/19/2025 6:28 PM EDTTelephone Encounter - Jeana Guerra MD - 04/19/2025 6:28 PM EDTTelephone Encounter - Elizabeth Jackson MA - 04/19/2025 3:23 PM EDT Note Date & Type Note Facility 04-19-2025 Telephone encounter Note Long conversation with family. And gave advice Jeana Asif MD [facility] 04-19-2025 Miscellaneous Notes Long conversation with family. And gave advice Jeana Asif MD Spouse Avinash contact: [phone] is correct. Spouse will have phone on & be waiting for call. Elizabeth Jackson MA Please call the family and confirm the numbers I can reach them on, as I will make a call before I leave office today RegardsJeana MD Pts called in and reports a provider had come into Pts room and had discussed wanting to start dialysis in the Pt. The Pt wanted to talk with Dr Guerra about this before proceeding. Pts didn't know how we could accommodate this. I told him I would send a message to the provider. I told him about phone issues and he will call back later today for providers reply. Mckayla Card, RN Noted. Please set her up for hospital follow up. Jeana Asif MD Patient \ Avinash calling was admitted to [facility] on 04/16, gagging and spitting up mucous, no pneumonia diagnosis. He said she is having thoracentesis done tomorrow to remove fluid from her lung. documented in this encounter [facility] 04-19-2025 Telephone encounter Note Spouse Avinash contact: [phone] is correct. Spouse will have phone on & be waiting for call. Elizabeth Jackson MA [facility] 04-19-2025 Telephone encounter Note Please call the family and confirm the numbers I can reach them on, as I will make a call before I leave office today Jeana Asif MD [facility] 04-19-2025 Telephone encounter Note Pts called in and reports a provider had come into Pts room and had discussed wanting to start dialysis in the Pt. The Pt wanted to talk with Dr Guerra about this before proceeding. Pts didn't know how we could accommodate this. I told him I would send a message to the provider. I told him about phone issues and he will call back later today for providers reply. Mckayla aCrd, RN [facility] 04-19-2025 Telephone encounter Note Noted. Please set her up for hospital follow up. Regards, Jeana Guerra MD [facility] 04-18-2025 Telephone encounter Note Patient \ Avinash calling was admitted to [facility] on 04/16, gagging and spitting up mucous, no pneumonia diagnosis. He said she is having thoracentesis done tomorrow to remove fluid from her lung. [facility] 04-16-2025 Radiology Diagnostic study note [facility] Imaging Services [address] [place] [address] Chest PA and Lateral MR#: [id number] Acct: [id number] Name: BLESSING JACKSON Rep #: [id number] : 1940 F 84 From: Ulises Richard MD PCP: Dr. Jeana Guerra MD Status: REG E R Study:Chest PA and Lateral Date of Exam: 04/16/25 Exam# [id number] Ordering Dr: Nathan Torres DO PROCEDURE: CHEST PA AND LATERAL 04/16/2025 REASON FOR EXAM: SHORTNESS OF BREATH TECHNIQUE: Frontal and lateral views of the chest. COMPARISON: Prior study dated January 31, 2025. FINDINGS: Hardware: EKG electrodes are seen. Heart: Heart size is moderately enlarged. Calcification of the mitral valve annulus. Mediastinum: The mediastinal contour is unremarkable. Calcification of the aortic arch. Lungs: Bilateral pleural effusions right greater than left with bibasilar atelectasis worse at the right lung base. CHF. Bones: Degenerative changes are identified within the thoracic spine. RAD/Chest PA and Lateral IMPRESSION: Cardiomegaly and CHF. Small bilateral effusions right greater than left with bibasilar atelectasis worse on the right side. Reading Location: [facility] CC: Dr. Nathan Castanon DO; Dr. Jeana Guerra MD ~ Pound Attendant: Signed [facility] 03-04-2025 Note HNO ID: [id number] Author: JEANA GUERRA MD Service: ? Author Type: Physician Type: Progress Notes Filed: 03/04/2025 13:09 Note Text: Reason for Visit Follow up PHIL Madrigal is a 84-year-old female with a history of hypothyroidism, atrial fibrillation, and type 2 diabetes mellitus, presenting for follow-up. Kaitlin reports a recent TSH level of 4.4 ?IU/mL. She denies missing any doses of levothyroxine, except during a recent 3-day hospitalization where she was not administered her usual medications orally. She resumed her medication regimen immediately upon discharge. She inquires about the possibility of taking a double dose of levothyroxine to normalize her TSH levels. She also reports a recent change in her diabetes management, switching from Victoza to Ozempic within the last month, and denies any adverse effects from this change. Her current HbA1c is 6.4%. She is taking metformin 500 mg twice daily and denies experiencing hypoglycemia. Kaitlin notes a decrease in energy levels, which she attributes to her atrial fibrillation and possibly to metoprolol. She is currently not on lisinopril and inquires about restarting it. She monitors her blood pressure and heart rate at home three times a week, consistently noting atrial fibrillation. She denies any symptoms associated with atrial fibrillation, such as palpitations, dizziness, or lightheadedness. She inquires about the utility of an Apple Watch for monitoring her condition. She is currently taking Lasix once daily and inquires about the necessity of continuing this medication indefinitely. She occasionally adjusts the timing of her Lasix dose to accommodate social events and asks if this practice is acceptable. She expresses a desire to avoid fluid retention, which led to her recent hospitalization. She also inquires about the safety of traveling to a remote location with limited medical facilities. Social History Tobacco Use Smoking status: Never Smokeless tobacco: Never Vaping Use Vaping status: Never Used Substance Use Topics Alcohol use: Yes Comment: Occasional Wine Drug use: Never Past medical history, appointments, medications, allergies reviewed. Pertinent Lab/Diagnostic Studies are reviewed and discussed today Current Outpatient Medications: Cetirizine 10 mg cap ALIGN PROBIOTIC RESISTANCE CAPSULE metoprolol tartrate, short acting, (LOPRESSOR) 50 mg tablet dilTIAZem CD (CARDIZEM CD) 240 mg 24 hr capsule apixaban (ELIQUIS) 5 mg tab(s) furosemide (LASIX) 40 mg tablet pentoxifylline ER (TRENTAL) 400 mg CR tablet simvastatin (ZOCOR) 20 mg tablet diosmin complex no.1 (VASCULERA) 630 mg tab BIOTIN ORAL mupirocin (BACTROBAN) 2 % ointment blood sugar diagnostic (ONE TOUCH VERIO) test strip Lancets (ONE TOUCH DELICA) lancets acetaminophen (TYLENOL) 500 mg tablet multivitamins(DAILY MULTIVITAMIN TAB) lisinopril (ZESTRIL) 40 mg tablet gabapentin (NEURONTIN) 300 mg capsule levothyroxine (SYNTHROID) 100 mcg tablet semaglutide (OZEMPIC) 0.25 mg or 0.5 mg (2 mg/3 mL) pen metFORMIN ER (GLUCOPHAGE XR) 500 mg 24 hr tablet azelastine-fluticasone (DYMISTA) 137-50 mcg/spray nasal spray amLODIPine (NORVASC) 5 mg tablet betamethasone dipropionate (DIPROSONE) 0.05 % cream aspirin, enteric coated 81 mg EC tablet Health Maintenance Shingrix Vaccine(2 of 3) DTaP,Tdap,Td Vaccine(2 - Td or Tdap) Covid-19 Vaccine( season) Advance Directive Discussion Depression Screening Anxiety Screening@ Review Of Systems Constitutional: (+) fatigue Genitourinary: (+) urinary frequency Physical Exam BP 135/87 Pulse 92 Resp 16 Wt 86.4 kg (190 lb 6.4 oz) BMI 35.98 kg/m? GENERAL: NAD, alert and oriented. SKIN: Unremarkable, no rash or skin lesions. HEAD: Normocephalic. EYES: PERRLA, EOMI, conjunctiva clear. EARS: External ears normal, canals clear, TM's normal. NOSE/SINUSES: Nares normal. Septum midline. OROPHARYNX: Lips, mucosa, and tongue normal, good dentition. No oral lesions noted. NECK: Supple, no lymphadenopathy, normal thyroid, no carotid bruits. LUNGS: Clear to auscultation bilaterally, no wheezes/rhonchi/rales. HEART: Regular rate and rhythm, no murmurs. No ectopy. EXTREMITIES: Normal, no deformities, no skin discoloration, no edema. NEURO: Awake, alert and oriented x3, cranial nerves II-XII grossly intact, normal gait, no involuntary motions. Labs: - TSH: 4.4 - A1c: 6.4 - ProBNP: Elevated - Potassium: Low Assessment and Plan 1. Type 2 diabetes mellitus with peripheral neuropathy (HCC) (E11.42) Diabetic polyneuropathy associated with type 2 diabetes mellitus (HCC) (E11.42) Hemoglobin A1c is 6.4%. Currently on metformin and Ozempic 0.5 mg. No reported episodes of hypoglycemia. Peripheral neuropathy managed with gabapentin. - Reduce metformin to 500 mg once daily with breakfast to prevent potential hypoglycemia. - Continue Ozempic 0.5 mg. - Refill prescript (more content not included)... [facility] 03-04-2025 History of Present illness Narrative Reason for Visit Follow up PHIL Madrigal is a 84-year-old female with a history of hypothyroidism, atrial fibrillation, and type 2 diabetes mellitus, presenting for follow-up. Kaitlin reports a recent TSH level of 4.4 IU/mL. She denies missing any doses of levothyroxine, except during a recent 3-day hospitalization where she was not administered her usual medications orally. She resumed her medication regimen immediately upon discharge. She inquires about the possibility of taking a double dose of levothyroxine to normalize her TSH levels. She also reports a recent change in her diabetes management, switching from Victoza to Ozempic within the last month, and denies any adverse effects from this change. Her current HbA1c is 6.4%. She is taking metformin 500 mg twice daily and denies experiencing hypoglycemia. Kaitlin notes a decrease in energy levels, which she attributes to her atrial fibrillation and possibly to metoprolol. She is currently not on lisinopril and inquires about restarting it. She monitors her blood pressure and heart rate at home three times a week, consistently noting atrial fibrillation. She denies any symptoms associated with atrial fibrillation, such as palpitations, dizziness, or lightheadedness. She inquires about the utility of an Apple Watch for monitoring her condition. She is currently taking Lasix once daily and inquires about the necessity of continuing this medication indefinitely. She occasionally adjusts the timing of her Lasix dose to accommodate social events and asks if this practice is acceptable. She expresses a desire to avoid fluid retention, which led to her recent hospitalization. She also inquires about the safety of traveling to a remote location with limited medical facilities. Social History Tobacco Use Smoking status: Never Smokeless tobacco: Never Vaping Use Vaping status: Never Used Substance Use Topics Alcohol use: Yes Comment: Occasional Wine Drug use: Never Past medical history, appointments, medications, allergies reviewed. Pertinent Lab/Diagnostic Studies are reviewed and discussed today Current Outpatient Medications: Cetirizine 10 mg cap ALIGN PROBIOTIC RESISTANCE CAPSULE metoprolol tartrate, short acting, (LOPRESSOR) 50 mg tablet dilTIAZem CD (CARDIZEM CD) 240 mg 24 hr capsule apixaban (ELIQUIS) 5 mg tab(s) furosemide (LASIX) 40 mg tablet pentoxifylline ER (TRENTAL) 400 mg CR tablet simvastatin (ZOCOR) 20 mg tablet diosmin complex no.1 (VASCULERA) 630 mg tab BIOTIN ORAL mupirocin (BACTROBAN) 2 % ointment blood sugar diagnostic (ONE TOUCH VERIO) test strip Lancets (ONE TOUCH DELICA) lancets acetaminophen (TYLENOL) 500 mg tablet multivitamins(DAILY MULTIVITAMIN TAB) lisinopril (ZESTRIL) 40 mg tablet gabapentin (NEURONTIN) 300 mg capsule levothyroxine (SYNTHROID) 100 mcg tablet semaglutide (OZEMPIC) 0.25 mg or 0.5 mg (2 mg/3 mL) pen metFORMIN ER (GLUCOPHAGE XR) 500 mg 24 hr tablet azelastine-fluticasone (DYMISTA) 137-50 mcg/spray nasal spray amLODIPine (NORVASC) 5 mg tablet betamethasone dipropionate (DIPROSONE) 0.05 % cream aspirin, enteric coated 81 mg EC tablet Health Maintenance Shingrix Vaccine(2 of 3) DTaP,Tdap,Td Vaccine(2 - Td or Tdap) Covid-19 Vaccine(2023- season) Advance Directive Discussion Depression Screening Anxiety Screening@ Review Of Systems Constitutional: (+) fatigue Genitourinary: (+) urinary frequency Physical Exam BP 135/87 Pulse 92 Resp 16 Wt 86.4 kg (190 lb 6.4 oz) BMI 35.98 kg/m GENERAL: NAD, alert and oriented. SKIN: Unremarkable, no rash or skin lesions. HEAD: Normocephalic. EYES: PERRLA, EOMI, conjunctiva clear. EARS: External ears normal, canals clear, TM's normal. NOSE/SINUSES: Nares normal. Septum midline. OROPHARYNX: Lips, mucosa, and tongue normal, good dentition. No oral lesions noted. NECK: Supple, no lymphadenopathy, normal thyroid, no carotid bruits. LUNGS: Clear to auscultation bilaterally, no wheezes/rhonchi/rales. HEART: Regular rate and rhythm, no murmurs. No ectopy. EXTREMITIES: Normal, no deformities, no skin discoloration, no edema. NEURO: Awake, alert and oriented x3, cranial nerves II-XII grossly intact, normal gait, no involuntary motions. Labs: - TSH: 4.4 - A1c: 6.4 - ProBNP: Elevated - Potassium: Low Assessment and Plan 1. Type 2 diabetes mellitus with peripheral neuropathy (HCC) (E11.42) Diabetic polyneuropathy associated with type 2 diabetes mellitus (HCC) (E11.42) Hemoglobin A1c is 6.4%. Currently on metformin and Ozempic 0.5 mg. No reported episodes of hypoglycemia. Peripheral neuropathy managed with gabapentin. - Reduce metformin to 500 mg once daily with breakfast to prevent potential hypoglycemia. - Continue Ozempic 0.5 mg. - Refill prescriptions for metformin and gabapentin sent to [facility]. - Monitor blood glucose levels and report any episodes of hypoglycemia. 2. Hypothyroidism, adult (E03.9) TSH level is elevated at 4.4 mIU/L. Possible missed doses of levothyroxine during recent hospitalization. - Instructed patient to take double the usual dose of levothyroxine for 1-2 days to compensate for missed doses. - Refill prescription for levothyroxine sent to [facility]. - Monitor TSH levels and follow up if symptoms persist. 3. Class 2 severe obesity with serious comorbidity and body mass index (BMI) of 36.0 to 36.9 in adult, unspecified obesity type (HCC) (E66.812) Weight is at the lowest in 62 years. Recent change from Victoza to Ozempic. - Continue current regimen of Ozempic. - Monitor weight and dietary intake. - Encourage balanced diet with controlled carbohydrate intake. 4. Essential (primary) hypertension (I10) Blood pressure reading is 135/87 mmHg, higher than target of <120 mmHg. Lisinopril was discontinued during hospitalization. - Restart lisinopril. - Refill prescription for lisinopril sent to [facility]. - Monitor blood pressure regularly. 5. Paroxysmal atrial fibrillation (HCC) (I48.0) Currently asymptomatic. Managed with metoprolol and Eliquis. Cardioversion deemed unnecessary by urban renewal manager. - Continue metoprolol and Eliquis. - Consider using an [employer] for heart rate monitoring with alerts set for heart rates >100 bpm. - Discussed the importance of anticoagulation to prevent thromboembolic events. - Follow up with cardiology as needed. Voice recognition software was used to compose this office note. Please excuse any unintended typographical errors. Recording using babberly software for draft documentation of the visit was discussed with the patient/authorized sales representative girls' apparel; all questions welcomed and answered. Patient/authorized sales representative girls' apparel agreed to proceed Jeana Guerra MD documented in this encounter [facility] 03-04-2025 Telephone encounter Note The patient has been identified by name and date of : Yes Caregiver verified no other encounters exist for this prescription request: Yes Caregiver confirmed with patient/requestor that no other refills are due, in the near future, with this provider at this time: Yes The last office visit in the department: 03/04/2025 Does the patient have a future office visit with this provider/department: Yes 04/29/2025 Requested Prescriptions Pending Prescriptions Disp Refills simvastatin (ZOCOR) 20 mg tablet 90 tablet 3 Sig: Take 1 tablet by mouth daily at bedtime. Mckyala Card RN March 04, 2025 12:27 PM [facility] 03-04-2025 Miscellaneous Notes The patient has been identified by name and date of : Yes Caregiver verified no other encounters exist for this prescription request: Yes Caregiver confirmed with patient/requestor that no other refills are due, in the near future, with this provider at this time: Yes The last office visit in the department: 03/04/2025 Does the patient have a future office visit with this provider/department: Yes 04/29/2025 Requested Prescriptions Pending Prescriptions Disp Refills simvastatin (ZOCOR) 20 mg tablet 90 tablet 3 Sig: Take 1 tablet by mouth daily at bedtime. Mckayla Card RN March 04, 2025 12:27 PM documented in this encounter [facility] 03-04-2025 Instructions Jeana Guerra MD - 03/04/2025 10:37 AM EDT We discussed your thyroid: - Your TSH level is slightly elevated at 4.4. This may be due to missed doses of levothyroxine while you were in the hospital. - To address this, take a double dose of levothyroxine for 1-2 days over the next week to make up for any missed doses. - Moving forward, if you ever miss a dose of levothyroxine, you can double the dose the next day to catch up. We discussed your medications: - Restart lisinopril to help manage your blood pressure. This prescription has been sent to [facility]. - Continue taking metformin, but reduce the dose to 500 mg once daily with breakfast. This adjustment is to avoid low blood sugar levels, which can be more harmful at your age. - Continue taking gabapentin, levothyroxine, and semaglutide (Ozempic). Refills for these medications have been sent to [facility]. - Your A1c is currently 6.4, which is lower than the target range for your age (7.0-7.5). If you experience low blood sugar, fatigue, or dizziness, please let me know. We discussed your Lasix (furosemide): - You are currently taking 1 pill daily. To see if we can reduce the dose, cut the pill in half and take half a pill daily for one week. - Monitor your weight daily in the morning. If your weight remains stable, you can continue with the reduced dose. - If you gain 5-6 pounds in a week, return to the full dose of 1 pill daily. - If you have a few days of eating salty foods and notice weight gain, you can temporarily double the dose for those days and then return to the lower dose. We discussed your atrial fibrillation (AFib): - The urban renewal manager has recommended continuing with your current medications rather than pursuing cardioversion (a procedure to restore normal heart rhythm). - Continue taking Eliquis (apixaban) as prescribed to reduce your risk of blood clots and stroke. - If you decide to get an Apple Watch, it can be helpful for monitoring your heart rate and detecting falls. Set the alerts to notify you only if your heart rate exceeds 100 beats per minute to avoid unnecessary alarms. We discussed your diet and potassium: - You can continue eating a small amount of grapes to help maintain your potassium levels, as recommended in the hospital. - Avoid consuming too many carbohydrates at once. Aim for balanced meals with protein, complex carbohydrates, vegetables, and a small portion of fruit. We discussed your summer plans: - There is no specific medical reason to avoid traveling to your summer home. However, ensure you are aware of the nearest hospital and have a plan in place for emergencies. Follow-up: - Monitor your weight daily and let me know if you notice significant changes. - Contact me if you experience low blood sugar, dizziness, or fatigue, or if you have any concerns about your medications or symptoms. - Schedule a follow-up appointment as needed. All prescriptions have been sent to [facility]. documented in this encounter [facility] 03-01-2025 Note HNO ID: [id number] Author: MIRANDA DE, ? Service: ? Author Type: Physician Type: Progress Notes Filed: 03/01/2025 15:11 Note Text: Last saw pcp: 01/08/25 Subjective: Patient presents to clinic c/o painful toenails. They state that the nails are especially painful with shoe gear and pressure. Patient states that nails right hallux are painful. Patient admits to being diabetic. No other pedal complaints at this time. Patient states no change in medications or medical history since last visit. Objective: Patient presents to clinic ambulating in loafers Vasc: DP and PT pulses are faintly palpable bilateral due to swelling. CFT is less than 5 seconds bilateral. Skin temperature is warm to cool proximal to distal bilateral. There is moderate edema or varicosities noted. Neuro: Protective sensation is decreased to the foot and toes when tested with the 5.07 SWM bilateral. Vibratory sensation is absent at the hallux IPJ bilateral. The hallux is downgoing bilateral. Derm: Nails 1-5 b/l are painful, discolored-yellow, thick, crumbly, dystrophic and with subungal debris. Skin is of normal turgor, texture and hair growth is absent bilateral. There are no hyperkeratosis, ulcerations, scars, verruca or other lesions noted. Ortho: Muscle strength is 5/5 for all pedal groups tested. Ankle joint DF is decreased with the knee extended with no pain or crepitus noted. 1st MPJ ROM is decreased bilateral. Assessment: (B35.1) Onychomycosis (primary encounter diagnosis) (M79.674) Pain in toe of right foot (M79.675) Pain in toe of left foot (E11.42) Type 2 diabetes mellitus with peripheral neuropathy (HCC) Plan: Patient was seen and evaluated. Nails 1-5 bilateral were debrided in length and thickness. Patient was instructed on the continued importance of diabetic foot care along with proper diet and keeping their blood sugar under control to prevent complications. I stressed the importance of avoiding barefoot walking, wearing good shoes and inspection of feet. I discussed how this patient suffers from neuropathy and that it is important that she monitor for any open wounds. If she develops any issues, she is to contact our office immediately and we will have them seen. Patient is to RTC in 3-4 months. Miranda De DPM [facility] 03-01-2025 History of Present illness Narrative Last saw pcp: 01/08/25 Subjective: Patient presents to clinic c/o painful toenails. They state that the nails are especially painful with shoe gear and pressure. Patient states that nails right hallux are painful. Patient admits to being diabetic. No other pedal complaints at this time. Patient states no change in medications or medical history since last visit. Objective: Patient presents to clinic ambulating in loafers Vasc: DP and PT pulses are faintly palpable bilateral due to swelling. CFT is less than 5 seconds bilateral. Skin temperature is warm to cool proximal to distal bilateral. There is moderate edema or varicosities noted. Neuro: Protective sensation is decreased to the foot and toes when tested with the 5.07 SWM bilateral. Vibratory sensation is absent at the hallux IPJ bilateral. The hallux is downgoing bilateral. Derm: Nails 1-5 b/l are painful, discolored-yellow, thick, crumbly, dystrophic and with subungal debris. Skin is of normal turgor, texture and hair growth is absent bilateral. There are no hyperkeratosis, ulcerations, scars, verruca or other lesions noted. Ortho: Muscle strength is 5/5 for all pedal groups tested. Ankle joint DF is decreased with the knee extended with no pain or crepitus noted. 1st MPJ ROM is decreased bilateral. Assessment: (B35.1) Onychomycosis (primary encounter diagnosis) (M79.674) Pain in toe of right foot (M79.675) Pain in toe of left foot (E11.42) Type 2 diabetes mellitus with peripheral neuropathy (HCC) Plan: Patient was seen and evaluated. Nails 1-5 bilateral were debrided in length and thickness. Patient was instructed on the continued importance of diabetic foot care along with proper diet and keeping their blood sugar under control to prevent complications. I stressed the importance of avoiding barefoot walking, wearing good shoes and inspection of feet. I discussed how this patient suffers from neuropathy and that it is important that she monitor for any open wounds. If she develops any issues, she is to contact our office immediately and we will have them seen. Patient is to RTC in 3-4 months. Miranda De DPM documented in this encounter [facility] 03-01-2025 Instructions Miranda De - 03/01/2025 2:58 PM EDT Diabetes Foot Care Instructions When you have diabetes, proper foot care is very important. Poor foot care may lead to amputation of a foot or leg. As a person with diabetes, you are more vulnerable to foot problems, because diabetes can damage your nerves and reduce blood flow to your feet. Here are some diabetes foot care tips to follow: Wash and Dry Your Feet Daily Use mild soaps Use warm water Pat your skin dry; do not rub. Thoroughly dry your feet. After washing, use lotion on your feet to prevent cracking. Do not put lotion between your toes. Examine Your Feet Each Day Check the tops and bottoms of your feet. Have someone else look at your feet if you cannot see them. Check for dry, cracked skin. Look for blisters, cuts, scratches, or other sores. Check for redness, increased warmth, or tenderness when touching any area of your feet. Check for ingrown toenails, corns, and calluses. If you get a blister or sore from your shoes, do not pop it. Apply a bandage and wear a different pair of shoes. Take Care of Your Toenails Cut toenails after bathing, when they are soft. Cut toenails straight across and smooth with a nail file. Avoid cutting into the corners of toes. Do not cut cuticles. If you have neuropathy (or decreased sensation in your feet) a events director should always cut your toenails. Be Careful When Exercising Walk and exercise in comfortable shoes. Do not exercise when you have open sores on your feet. Protect Your Feet With Shoes and Socks Never go barefoot. Always protect your feet by wearing shoes or hard-soled slippers or footwear. Avoid shoes with high heels and pointed toes. Avoid shoes that expose your toes or heels (such as open-toed shoes or sandals). These types of shoes increase your risk for injury and potential infections. Try on new footwear with the type of socks you usually wear. Do not wear new shoes for more than an hour at a time. Change your socks daily. Look and feel inside your shoes before putting them on to make sure there are no foreign objects or rough areas. Avoid tight socks. Wear natural-fiber socks (cotton, wool, or a cotton-wool blend). Wear special shoes if your health care provider recommends them. Wear shoes/boots that will protect your feet from various weather conditions (cold, moisture, etc.). Make sure your shoes fit properly. If you have neuropathy (nerve damage), you may not notice that your shoes are too tight. Perform the footwear test described below. Footwear Test Use this simple test to see if your shoes fit correctly: Stand on a piece of paper. (Make sure you are standing and not sitting, because your foot changes shape when you stand.) Trace the outline of your foot. Trace the outline of your shoe. Compare the tracings: Is the shoe too narrow? Is your foot crammed into the shoe? The shoe should be at least 1/2 inch longer than your longest toe and as wide as your foot. Proper Shoe Choices The following types of shoes are best for people with diabetes Closed toes and heels Leather uppers without a seam inside At least 1/2 inch extra space at the end of your longest toe Inside of shoe should be soft with no rough areas Outer sole should be made of stiff material Shoes should be at least as wide as your feet Tips for Foot Care in Diabetes Don't wait to treat a minor foot problem if you have diabetes. Follow your health care provider's guidelines and first aid guidelines. Report foot injuries and infections to your health care provider immediately. Check water temperature with your elbow, not your foot. Do not use a heating pad on your feet. Do not cross your legs. Do not self-treat your corns, calluses, or other foot problems. Go to your health care provider or events director to treat these conditions. documented in this encounter [facility] 02-21-2025 Telephone encounter Note The patient has been identified by name and date of : Yes Caregiver verified no other encounters exist for this prescription request: Yes Caregiver confirmed with patient/requestor that no other refills are due, in the near future, with this provider at this time: Yes The last office visit in the department: 01/22/2025 Does the patient have a future office visit with this provider/department: Yes 03/04/2025 Requested Prescriptions Pending Prescriptions Disp Refills semaglutide (OZEMPIC) 0.25 mg or 0.5 mg (2 mg/3 mL) pen 9 mL 1 Sig: Inject 0.5 mg subcutaneously one time a week. Sarita Doty RN February 21, 2025 11:04 AM [facility] 02-21-2025 Miscellaneous Notes The patient has been identified by name and date of : Yes Caregiver verified no other encounters exist for this prescription request: Yes Caregiver confirmed with patient/requestor that no other refills are due, in the near future, with this provider at this time: Yes The last office visit in the department: 01/22/2025 Does the patient have a future office visit with this provider/department: Yes 03/04/2025 Requested Prescriptions Pending Prescriptions Disp Refills semaglutide (OZEMPIC) 0.25 mg or 0.5 mg (2 mg/3 mL) pen 9 mL 1 Sig: Inject 0.5 mg subcutaneously one time a week. Sarita Doty RN February 21, 2025 11:04 AM documented in this encounter [facility] 01-31-2025 Radiology Diagnostic study note [facility] Imaging Services [address] [place] [address] Chest PA and Lateral MR#: [id number] Acct: [id number] Name: BLESSING JACKSON Rep #: [id number] : [id number] F 84 From: Malgorzata Shelby MD PCP: Dr. Jeana Guerra MD Status: REG C JOSE Study:Chest PA and Lateral Date of Exam: 01/31/25 Exam# [id number] Ordering Dr: Magdi Thomas PA EXAM: XR Chest, 2 Views CLINICAL INDICATION: PLEURAL EFFUSION TECHNIQUE: Frontal and lateral views of the chest. COMPARISON: 01/05/2025 FINDINGS: LUNGS AND PLEURAL SPACES: Lingular atelectasis or pneumonia. Trace right pleural effusion. HEART: Cardiomegaly with mild congestion. MEDIASTINUM: Unremarkable. Normal mediastinal contour. BONES/JOINTS: Unremarkable. No acute fracture. RAD/Chest PA and Lateral IMPRESSION: 1. Lingular atelectasis or pneumonia. 2. Cardiomegaly with mild congestion. 3. Trace right pleural effusion. Decreased left pleural effusion. Reading [facility] CC: Dr. Jeana Guerra MD; DAVIDSON Lomeli ~ Pound Attendant: Signed [facility] 01-22-2025 Note HNO ID: [id number] Author: JEANA GUERRA MD Service: ? Author Type: Physician Type: Progress Notes Filed: 01/22/2025 17:42 Note Text: Reason for Visit Patient presents with: Hospital F/U: Hospital [facility] f/u, a kimo Blessing Jackson is a 82 year old female who presents here today for Above Complaints.. 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 They put her in a Mattie boot and it has helped. For her lipodermatosclerosis she was seeing a vascular doctor at [facility] Dr Warren wolfe who basically said that some possible intervention may be available for vein stripping the traditional way would be with significant complications. So suggested she tried Gordymona Murryluri for the atypical stropping for venous insufficiency. Dr Shaw started her on Vasculera and her swelling Is def better than before. Dr Kelley tried her on pramipexole substitution gabapentin. but that did not work for her, se of dizziness so She went back to gabapentin. Has balance issues from neuropathy, Diabetes Mellitus related most likely so has been using a type of walker to help her. Last visit we increased the victoza and her sugars are much much better than before she also 5 pounds of weight. HTN: BP uncontrolled today. Recently her amlodipine was increased but that made her too tired. She is taking 2.5 in the morning and 5 mgs in the evening. . She will check the bp for the next week and if more than 135 then go on the amlodipine. Checks BP at home. Compliant with medications. Denies any chest pain, palpitations, SOB, swelling in the feet. Careful with diet to avoid salt, trying to eat more fruits and vegetables, exercises regularly January 08, 2025: Sudden weight gain, of around 30 pounds in 2 weeks, no changes in diet or water intake. Does not have an appetite. Says it started with a sinus infection, when she went to urgent care she had sinus infection, first in October, got better and got worse. Sinuses feel full, and there is a lot of drainage post nasally and she feels very stuffy, can't breathe, mostly clear but was given an abx. Which did not help her symptoms. In addition to the above she has been feeling clumpsy as she has gained around 30 in the past 2 weeks, most of it is in the lower abdomen, her limbs are not affected much. The legs have baseline swelling. She was put on SCDS and that has helped with the pedal insufficiency. January 22, 2025 This is a discharge summary. Patient was admitted on January 08. She was actually sent from our office to the ER and we had given information to the ER. She was discharged on January 11. Admitting diagnosis was A-fib with RVR, congestive heart failure preserved ejection fraction in acute exacerbation, pleural effusion. She was given Lasix 40 mg twice a day and currently is taking 40 mg once a day. Her atenolol was switched to metoprolol 50 mg. She is on Eliquis 5 mg 2 times a day for anticoagulation for you diagnosis of A-fib and on Cardizem to 40 mg. She is follow-up tomorrow with [facility] cardiology group. She has lost almost most of the weight that she had gained. She had actually gained 30 pounds of weight over the past few weeks. She was surprised that she had too much fluid in her lungs. She is able to breathe better and her sinuses and other symptoms also have become better. The only problem today that she notes is A little Janis phlegm and itching. Skin of her hands, her abdomen are all itching and dry. She does note that overall overall excessive dryness after the Lasix. She also has a little janis phlegm and it is very sparse and intermittent. She wanted to know if she can stop the Mucinex. We discussed stopping the Mucinex. We also discussed the importance of taking Lasix 20 mg and to increase it if her weight increases. Briefly discussed nursing homes but we do not think she is needs to go to fdc at this point. May be some help at home would be great. No problem-specific Assessment AND Plan notes found for this encounter. PAST MEDICAL HISTORY Diagnosis Date Cardiomegaly Cellulitis Essential hypertension, benign 1979 Generalized osteoarthrosis, unspecified site 1989 HX: breast cancer 2008 surgery at [facility] Lymphedema left leg Malignant neoplasm of upper-outer quadrant of female breast (HCC) 04/03/2009 Other and unspecified hyperlipidemia PVD (peripheral vascular (more content not included)... [facility] 01-22-2025 History of Present illness Narrative Reason for Visit Patient presents with: Hospital F/U: [facility] f/uanuradha Blessing Jackson is a 82 year old female who presents here today for Above Complaints.. 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 They put her in a Mattie boot and it has helped. For her lipodermatosclerosis she was seeing a vascular doctor [facility] Warren wolfe who basically said that some possible intervention may be available for vein stripping the traditional way would be with significant complications. So suggested she tried Gordy Carlton for the atypical stropping for venous insufficiency. Dr Shaw started her on Vasculera and her swelling Is def better than before. Dr Kelley tried her on pramipexole substitution gabapentin. but that did not work for her, se of dizziness so She went back to gabapentin. Has balance issues from neuropathy, Diabetes Mellitus related most likely so has been using a type of walker to help her. Last visit we increased the victoza and her sugars are much much better than before she also 5 pounds of weight. HTN: BP uncontrolled today. Recently her amlodipine was increased but that made her too tired. She is taking 2.5 in the morning and 5 mgs in the evening. . She will check the bp for the next week and if more than 135 then go on the amlodipine. Checks BP at home. Compliant with medications. Denies any chest pain, palpitations, SOB, swelling in the feet. Careful with diet to avoid salt, trying to eat more fruits and vegetables, exercises regularly January 08, 2025: Sudden weight gain, of around 30 pounds in 2 weeks, no changes in diet or water intake. Does not have an appetite. Says it started with a sinus infection, when she went to urgent care she had sinus infection, first in October, got better and got worse. Sinuses feel full, and there is a lot of drainage post nasally and she feels very stuffy, can't breathe, mostly clear but was given an abx. Which did not help her symptoms. In addition to the above she has been feeling clumpsy as she has gained around 30 in the past 2 weeks, most of it is in the lower abdomen, her limbs are not affected much. The legs have baseline swelling. She was put on SCDS and that has helped with the pedal insufficiency. January 22, 2025 This is a discharge summary. Patient was admitted on January 08. She was actually sent from our office to the ER and we had given information to the ER. She was discharged on January 11. Admitting diagnosis was A-fib with RVR, congestive heart failure preserved ejection fraction in acute exacerbation, pleural effusion. She was given Lasix 40 mg twice a day and currently is taking 40 mg once a day. Her atenolol was switched to metoprolol 50 mg. She is on Eliquis 5 mg 2 times a day for anticoagulation for you diagnosis of A-fib and on Cardizem to 40 mg. She is follow-up tomorrow with [facility] cardiology group. She has lost almost most of the weight that she had gained. She had actually gained 30 pounds of weight over the past few weeks. She was surprised that she had too much fluid in her lungs. She is able to breathe better and her sinuses and other symptoms also have become better. The only problem today that she notes is A little Janis phlegm and itching. Skin of her hands, her abdomen are all itching and dry. She does note that overall overall excessive dryness after the Lasix. She also has a little janis phlegm and it is very sparse and intermittent. She wanted to know if she can stop the Mucinex. We discussed stopping the Mucinex. We also discussed the importance of taking Lasix 20 mg and to increase it if her weight increases. Briefly discussed nursing homes but we do not think she is needs to go to fdc at this point. May be some help at home would be great. No problem-specific Assessment & Plan notes found for this encounter. PAST MEDICAL HISTORY Diagnosis Date Cardiomegaly Cellulitis Essential hypertension, benign 1979 Generalized osteoarthrosis, unspecified site 1989 HX: breast cancer 2008 surgery at [facility] Lymphedema left leg Malignant neoplasm of upper-outer quadrant of female breast (HCC) 04/03/2009 Other and unspecified hyperlipidemia PVD (peripheral vascular disease) (HCC) Special screening for malignant neoplasms, colon 12/12/2014 Type II or unspecified type diabetes mellitus without mention of complication, not stated as uncontrolled 1992 Unspecified hypothyroidism 1969 PAST SURGICAL HISTORY Procedure Laterality Date ARTHRP ACETBLR/PROX FEM PROSTC AGRFT/ALGRFT 2002 right ARTHRP ACETBLR/PROX FEM PROSTC AGRFT/ALGRFT 02/2012 left ARTHRP KNE CONDYLE&PLATU MEDIAL&LAT COMPARTMENTS 10/24/2006 left BX BREAST PERC VACUUM/ROTN 02/12/2009 Right COLONOSCOPY 2004 COLONOSCOPY FLX DX W/COLLJ SPEC WHEN PFRMD 12/12/2014 Colonoscopy COLONOSCOPY FLX DX W/COLLJ SPEC WHEN PFRMD 01/03/2020 Colonoscopy DISKECTOMY, LUMBAR, SINGLE SP 10/03/2000 L4-5 with cages per pt report PAST SURGICAL HISTORY OF 03/03/2009 right lumpectomy and sentinel node biopsy - Dr. Reynolds - [facility] PAST SURGICAL HISTORY OF Right 02/20/2013 Right TKA REVISE MEDIAN N/CARPAL TUNNEL SURG Right [facility] - 2019? FAMILY HISTORY Problem Relation Age of Onset Diabetes Father Heart Mother congenital valve problem Diabetes Sister also has hx breast cancer Diabetes Sister Breast Cancer Sister sister is very private, pt not certain if it was cancer or not. Cancer Maternal Aunt uterine cancer Social History Tobacco Use Smoking status: Never Smokeless tobacco: Never Vaping Use Vaping status: Never Used Substance Use Topics Alcohol use: Yes Comment: Occasional Wine Drug use: Never Past medical history, appointments, medications, allergies reviewed. Pertinent Lab/Diagnostic Studies are reviewed and discussed today Current Outpatient Medications: gabapentin (NEURONTIN) 300 mg capsule levothyroxine (SYNTHROID) 100 mcg tablet liraglutide (VICTOZA) 0.6 mg/ 0.1 ml subcutaneous pen injector metFORMIN ER (GLUCOPHAGE XR) 500 mg 24 hr tablet pentoxifylline ER (TRENTAL) 400 mg CR tablet simvastatin (ZOCOR) 20 mg tablet Insulin Santa Ysabel, Disposable, (BD ULTRA-FINE MARCELO PEN NEEDLE) 32 gauge x 5/32 diosmin complex no.1 (VASCULERA) 630 mg tab BIOTIN ORAL MEDICATION, NON-DATABASE mupirocin (BACTROBAN) 2 % ointment blood sugar diagnostic (ONE TOUCH VERIO) test strip Lancets (ONE TOUCH DELICA) lancets acetaminophen (TYLENOL) 500 mg tablet multivitamins(DAILY MULTIVITAMIN TAB) azelastine-fluticasone (DYMISTA) 137-50 mcg/spray nasal spray semaglutide (OZEMPIC) 0.25 mg or 0.5 mg (2 mg/3 mL) pen amLODIPine (NORVASC) 5 mg tablet atenolol (TENORMIN) 25 mg tablet hydroCHLOROthiazide 25 mg tablet lisinopril (ZESTRIL) 40 mg tablet betamethasone dipropionate (DIPROSONE) 0.05 % cream aspirin, enteric coated 81 mg EC tablet Review of Systems CONSTITUTIONAL: No fevers, chills night sweats, unintended weight loss CARDIOVASCULAR: No chest pain, dyspnea, palpitations, orthopnea, PND, ankle edema. PULM: No dyspnea, unexplained cough. GI: No dysphagia/odynophagia, problematic reflux, constipation, diarrhea, changes in stool habits, hematochezia, melena. : No new urinary complaints, including dysuria, gross hematuria or pyuria. NEURO: No new balance problems, peripheral weakness/paresthesias or numbness of concern. Physical Exam BP 106/68 Pulse 80 Ht 154.9 cm (5' 1) Wt 88.6 kg (195 lb 6.4 oz) SpO2 98% BMI 36.92 kg/m General appearance: Well appearing, alert, in no acute distress, large abdominal pannus. Skin: Skin color, texture, turgor normal, no suspicious rashes or lesions Head: Normocephalic, no masses, lesions, tenderness or abnormalities Eyes: Anicteric sclera. Pupils are equally round and reactive to light. Extraocular movements are intact. Lungs: Decreased lung sounds in the posterior lung triplett on the right side. Heart: Irregularly irregular rhythm. Extremities: She has scales on bilateral legs, the skin is thin, areas of redness, some areas where there seems to be ulcers which have healed. There is some erythema overall but not very much. ASSESSMENT/PLAN: 1. Hospital discharge follow-up - ICD9: V67.59, ICD10: Z09 (primary diagnosis) They had medical records, medications, posthospitalization course and current issues. Updated as needed 2. Atrial fibrillation, unspecified type (HCC) - ICD9: 427.31, ICD10: I48.91 Updated all new medications. Pulse today is normal 3. Acute on chronic heart failure with preserved ejection fraction (HCC) - ICD9: 428.23, ICD10: I50.33 She will be following up with cardiology and may discuss cardioversion 4. Itching - ICD9: 698.9, ICD10: L29.9 Discussed that she use some take creams to counter the changes in water. Will follow-up in a couple months Jeana Guerra MD documented in this encounter [facility] 01-11-2025 Note [facility] 01-10-2025 Note HNO ID: [id number] Author: BRIGITTE ABEL RN Service: ? Author Type: Registered Nurse Type: Progress Notes Filed: 01/10/2025 10:14 Note Text: Summary: ED utilization review per request of payor ACTomeka MARY RN Patient identified by name and date of . Reason for review or outreach: Chart Review Mary Priority Emergency Department Utilization REQUESTED ACTION/FYI: Please see ED Utilization summary below A follow-up appointment is noted to be scheduled on 03/04/25. Patient currently admitted at [facility] 01/08/25. Plan to F/U at discharge Exclusion Criteria - ED visits that result in an inpatient stay Utilization in past 6 months: # Occurrences Date Last Occurrence Hospital Admission 2 01/08/25 Hospital Observation 0 N/A ED 0 N/A SNF / Acute Rehab / LTAC 0 N/A Patient Attributed To: QAE Payer: Mauricio GARCIA Action Taken: Outreach N/A due to admission Contact made with patient: No, Chart review only. Signature: Brigitte LAWRENCE,RN,[facility] Vice President Quality Improvement Management Contract RN [phone] [facility] 01-10-2025 History of Present illness Narrative Summary: ED utilization review per request of payor ACM MARY RN Patient identified by name and date of . Reason for review or outreach: Chart Review Mary Priority Emergency Department Utilization REQUESTED ACTION/FYI: Please see ED Utilization summary below A follow-up appointment is noted to be scheduled on 03/04/25. Patient currently admitted at [facility] 01/08/25. Plan to F/U at discharge Exclusion Criteria - ED visits that result in an inpatient stay Utilization in past 6 months: # Occurrences Date Last Occurrence Hospital Admission 2 01/08/25 Hospital Observation 0 N/A ED 0 N/A SNF / Acute Rehab / LTAC 0 N/A Patient Attributed To: QAE Payer: Mauricio GARCIA Action Taken: Outreach N/A due to admission Contact made with patient: No, Chart review only. Signature: Brigitte LAWRENCE,RN,[facility] Vice President Quality Improvement Management Contract RN [phone] documented in this encounter [facility] 01-10-2025 Note Patient Outreach ([facility] BLESSING JACKSON I ([id number]) 1940 F Date Time Provider Department 01/10/25 BRIGITTE ABEL [facility] During your visit today, we recorded the following information about you: Brigitte Abel RN 01/10/2025 10:14 AM Signed ACM MARY RN Patient identified by name and date of . Reason for review or outreach: Chart Review Mary Priority Emergency Department Utilization REQUESTED ACTION/FYI: Please see ED Utilization summary below A follow-up appointment is noted to be scheduled on 03/04/25. Patient currently admitted at [facility] 01/08/25. Plan to F/U at discharge Exclusion Criteria - ED visits that result in an inpatient stay Utilization in past 6 months: # Occurrences Date Last Occurrence Hospital Admission 2 01/08/25 Hospital Observation 0 N/A ED 0 N/A SNF / Acute Rehab / LTAC 0 N/A Patient Attributed To: QAE Payer: Mauricio GARCIA Action Taken: Outreach N/A due to admission Contact made with patient: No, Chart review only. Signature: Brigitte LAWRENCE,RN,[facility] Vice President Quality Improvement Management Contract RN [phone] Allergies As of Date: 01/10/2025 Noted Allergy Reaction LOVENOX (ENOXAPARIN SODIUM) 04/14/2012 2 - Rash 9 - Itching OXYCONTIN (OXYCODONE) 12/15/2007 1 - Mental Status Change 14 - Other: See Comments Comments: sx of a stroke -- disoriented PENICILLINS 12/15/2007 2 - Rash 14 - Other: See Comments Comments: epidermolysis CODEINE 12/15/2007 8 - GI Upset Date Reviewed: 01/08/2025 Reviewed by: Camila Mitchell LPN - Fully Assessed Reason for Visit: ACM MARY RN [[id number]] Cmt: ED utilization review per request of payor Prescriptions as of 01/10/2025 - azelastine-fluticasone (DYMISTA) 137-50 mcg/spray nasal spray Use 1 [place] in each nostril two times a day. - semaglutide (OZEMPIC) 0.25 mg or 0.5 mg (2 mg/3 mL) pen Inject 0.5 mg subcutaneously one time a week. - amLODIPine (NORVASC) 5 mg tablet Take 1 tablet by mouth two times a day. - atenolol (TENORMIN) 25 mg tablet Take 1 tablet by mouth once daily. - gabapentin (NEURONTIN) 300 mg capsule Take 1 capsule by mouth once daily. - hydroCHLOROthiazide 25 mg tablet Take 1 tablet by mouth every afternoon. - levothyroxine (SYNTHROID) 100 mcg tablet Take 1 tablet by mouth once daily. - liraglutide (VICTOZA) 0.6 mg/ 0.1 ml subcutaneous pen injector Inject 1.8 mg subcutaneously once daily. - lisinopril (ZESTRIL) 40 mg tablet Take 1 tablet by mouth once daily. - metFORMIN ER (GLUCOPHAGE XR) 500 mg 24 hr tablet Take 2 tablets by mouth once daily. - pentoxifylline ER (TRENTAL) 400 mg CR tablet Take 1 tablet by mouth three times a day. - simvastatin (ZOCOR) 20 mg tablet Take 1 tablet by mouth daily at bedtime. - Insulin Santa Ysabel, Disposable, (BD ULTRA-FINE MARCELO PEN NEEDLE) 32 gauge x USE ONE NEEDLE FOR EACH DOSE ONCE DAILY - diosmin complex no.1 (VASCULERA) 630 mg tab Take 1 tablet by mouth once daily. - BIOTIN ORAL Take 5,000 mcg by mouth. - MEDICATION, NON-DATABASE Take by mouth. Vascularum per vascular surgeon. Unknown dose - betamethasone dipropionate (DIPROSONE) 0.05 % cream Apply to rash on neck once or twice a day as needed. - mupirocin (BACTROBAN) 2 % ointment Apply 1 application to affected area twice daily. - blood sugar diagnostic (ONE TOUCH VERIO) test strip Test glucose 1x/daily, 250.00, insulin use: No - Lancets (ONE TOUCH DELICA) lancets Test blood sugar(s) 1x/daily. Dx: 250.00. Insulin: No - aspirin, enteric coated 81 mg EC tablet Take 81 mg by mouth once daily. - acetaminophen (TYLENOL) 500 mg tablet Take 1,000 mg by mouth every 6 hours as needed. - multivitamins(DAILY MULTIVITAMIN TAB) Take one(1) tablet daily. Problem List As Of Date 01/10/2025 Noted Resolved Essential hypertension [I10] Hypothyroidism [E03.9] DIABETES MELLITUS TYPE II-UNCOMPL [E11.9] 04/18/2015 Hyperlipidemia [E78.5] GENERAL OSTEOARTHROSIS [M15.9] Abnormal mammogram, unspecified [R92.8] 02/13/2009 08/25/2016 History of cancer of right breast [Z85.3] 04/03/2009 VENOUS INSUFFICIENCY [I87.2] 05/14/2009 08/25/2016 Abdominal pain, unspecified site [R10.9] 10/01/2011 08/25/2016 Left groin pain [R10.32] 11/04/2011 08/25/2016 Osteoarthrosis, unspecified whether generalized*02/06/2012 08/25/2016 Leg edema [R60.0] 03/28/2012 08/25/2016 Obesity, Class III, BMI 40-49.9 (morbid obesity*03/28/2012 02/14/2015 BMI 40.0-44.9, adult ([facility]) [Z68.41] 02/21/2014 02/14/2015 Morbid obesity with BMI of 40.0-44.9, adult ([facility]*02/14/2015 03/18/2022 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*04/18/2015 Lipodermatosclerosis [M79.3] 10/23/2015 Lymphedema [I89.0] 10/23/2015 Microalbuminuria [R80.9] 03/03/2016 Family history of bilateral hip replacements [Z*11/21/2012 03/18/2022 History of total bilateral knee replacement [Z9*11/21/2013 Carpal tunn (more content not included)... [facility] 01-08-2025 Evaluation note Diagnosis Onset Date Resolution Atrial fibrillation with rapid ventricular response acute January 08, 025 12:50pm CHF (congestive heart failure) acute January 08, 025 12:50pm Hypertension chronic December 12:50pm Hypothyroidism chronic December 222024 12:50pm Type 2 diabetes mellitus chronic January 08, 2025 12:50pm Pleural effusion on right resolved January 08, 025 12:50pm Atrial fibrillation with rapid ventricular response acute January 23, 2025 10:50am Pleural effusion acute January 10:50am Dyslipidemia chronic January 23 025 10:50am Hypertension chronic January 23 10:50am [facility] Work Phone: [phone] 257-407602-18-2025 NoteHNO ID: [id number] Author: JEANA GUERRA MD Service: ? Author Type: Physician Type: Progress Notes Filed: 01/08/2025 18:30 Note Text: Reason for Visit Patient presents with: Sinus Problem: questions sinus infection that started in October has been getting worse. Seen in urgent care 12/22/24. Drainage is clear but thick. Unable to lie down due to increase cough. Abnormal Weight Gain: last true weight was 193lb and currently 221 noted shortness of breath with exertion heart rate elevated and irregular Blessing Jackson is a 82 year old female who presents here today for Above Complaints.. 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 They put her in a Mattie boot and it has helped. For her lipodermatosclerosis she was seeing a vascular doctor at [facility] Dr Warern wolfe who basically said that some possible intervention may be available for vein stripping the traditional way would be with significant complications. So suggested she tried Gordy Carlton for the atypical stropping for venous insufficiency. Dr Shaw started her on Vasculera and her swelling Is def better than before. Dr Kelley tried her on pramipexole substitution gabapentin. but that did not work for her, se of dizziness so She went back to gabapentin. Has balance issues from neuropathy, Diabetes Mellitus related most likely so has been using a type of walker to help her. Last visit we increased the victoza and her sugars are much much better than before she also 5 pounds of weight. HTN: BP uncontrolled today. Recently her amlodipine was increased but that made her too tired. She is taking 2.5 in the morning and 5 mgs in the evening. . She will check the bp for the next week and if more than 135 then go on the amlodipine. Checks BP at home. Compliant with medications. Denies any chest pain, palpitations, SOB, swelling in the feet. Careful with diet to avoid salt, trying to eat more fruits and vegetables, exercises regularly January 08, 2025: Sudden weight gain, of around 30 pounds in 2 weeks, no changes in diet or water intake. Does not have an appetite. Says it started with a sinus infection, when she went to urgent care she had sinus infection, first in October, got better and got worse. Sinuses feel full, and there is a lot of drainage post nasally and she feels very stuffy, can't breathe, mostly clear but was given an abx. Which did not help her symptoms. In addition to the above she has been feeling clumpsy as she has gained around 30 in the past 2 weeks, most of it is in the lower abdomen, her limbs are not affected much. The legs have baseline swelling. She was put on SCDS and that has helped with the pedal insufficiency. No problem-specific Assessment AND Plan notes found for this encounter. PAST MEDICAL HISTORY Diagnosis Date Cardiomegaly Cellulitis Essential hypertension, benign 1979 Generalized osteoarthrosis, unspecified site 1989 HX: breast cancer 2008 surgery at [facility] Lymphedema left leg Malignant neoplasm of upper-outer quadrant of female breast (HCC) 04/03/2009 Other and unspecified hyperlipidemia PVD (peripheral vascular disease) ([facility]) Special screening for malignant neoplasms, colon 12/12/2014 Type II or unspecified type diabetes mellitus without mention of complication, not stated as uncontrolled 1992 Unspecified hypothyroidism 1970 PAST SURGICAL HISTORY Procedure Laterality Date ARTHRP ACETBLR/PROX FEM PROSTC AGRFT/ALGRFT 2002 right ARTHRP ACETBLR/PROX FEM PROSTC AGRFT/ALGRFT 02/2012 left ARTHRP KNE CONDYLEANDPLATU MEDIALANDLAT COMPARTMENTS 10/24/2006 left BX BREAST PERC VACUUM/ROTN 02/12/2009 Right COLONOSCOPY 2004 COLONOSCOPY FLX DX W/COLLJ SPEC WHEN PFRMD 12/12/2014 Colonoscopy COLONOSCOPY FLX DX W/COLLJ SPEC WHEN PFRMD 01/03/2020 Colonoscopy DISKECTOMY, LUMBAR, SINGLE SP 10/03/2000 L4-5 with cages per pt report PAST SURGICAL HISTORY OF 03/03/2009 right lumpectomy and sentinel node biopsy - Dr. Gail SCHMITT PAST SURGICAL HISTORY OF Right 02/20/2013 Right TKA REVISE MEDIAN N/CARPAL TUNNEL SURG Right [facility] - 2019? FAMILY HISTORY Problem Relation Age of Onset Diabetes Father Heart Mother congenital valve problem Diabetes Sister also has hx breast cancer Diabetes Sister Breast Cancer Sister sister is very private, pt not certain if it was cancer or not. Cancer Maternal Aunt uterine c (more content not included)...[facility] History of Present illness Narrative* Jeana Guerra MD - 01/08/2025 9:15 AM EST Reason for Visit Patient presents with: Sinus Problem: questions sinus infection that started in October has been getting worse. Seen in urgent care 12/22/24. Drainage is clear but thick. Unable to lie down due to increase cough. Abnormal Weight Gain: last true weight was 193lb and currently 221 noted shortness of breath with exertion heart rate elevated and irregular Blessing Jackson is a 82 year old female who presents here today for Above Complaints.. 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 They put her in a Mattie boot and it has helped. For her lipodermatosclerosis she was seeing a vascular doctor at [facility] Dr Warren wolfe who basically said that some possible intervention may be available for vein stripping the traditional way would bewith significant complications. So suggested she tried Gordy Kolluri for the atypical stropping forvenous insufficiency. Dr Shaw started her on Vasculera and her swelling Is def better than before. Dr Kelley tried her on pramipexole substitution gabapentin. but that did not work for her, se of dizziness so She went back to gabapentin. Has balance issues from neuropathy, Diabetes Mellitus related most likely so has been using a type of walker to help her. Last visit we increased the victoza and her sugars are much much better than before she also 5 pounds of weight. HTN: BP uncontrolled today. Recently her amlodipine was increased but that made her too tired. She is taking 2.5 in the morning and 5 mgs in the evening. . She will check the bp for the next week andif more than 135 then go on the amlodipine. Checks BP at home. Compliant with medications. Denies any chest pain, palpitations, SOB, swelling in the feet. Careful with diet to avoid salt, trying to eat more fruits and vegetables, exercises regularly January 08, 2025: Sudden weight gain, of around 30 pounds in 2 weeks, no changes in diet or water intake. Does not have an appetite. Says it started with a sinus infection, when she went to urgent care she had sinus infection, first in October, got better and got worse. Sinuses feel full, and there is a lot of drainage post nasally and she feels very stuffy, can't breathe, mostly clear but was given an abx. Which did not help her symptoms. In addition to the above she has been feeling clumpsy as she has gained around 30 in the past 2 weeks, most of it is in the lower abdomen, her limbs are not affected much. The legs have baseline swelling. She was put on SCDS and that has helped with the pedal insufficiency. No problem-specific Assessment & Plan notes found for this encounter. PAST MEDICAL HISTORY Diagnosis Date Cardiomegaly Cellulitis Essential hypertension, benign 1979 Generalized osteoarthrosis, unspecified site 1989 HX: breast cancer 2009 surgery at [facility] Lymphedema left leg Malignant neoplasm of upper-outer quadrant of female breast (HCC) 04/03/2009 Other and unspecified hyperlipidemia PVD (peripheral vascular disease) (HCC) Special screening for malignant neoplasms, colon 12/12/2014 Type II or unspecified type diabetes mellitus without mention of complication, not stated as uncontrolled 1992 Unspecified hypothyroidism 1970 PAST SURGICAL HISTORY Procedure Laterality Date ARTHRP ACETBLR/PROX FEM PROSTC AGRFT/ALGRFT 2002 right ARTHRP ACETBLR/PROX FEM PROSTC AGRFT/ALGRFT 02/2012 left ARTHRP KNE CONDYLE&PLATU MEDIAL&LAT COMPARTMENTS 10/24/2006 left BX BREAST PERC VACUUM/ROTN 02/12/2009 Right COLONOSCOPY 2004 COLONOSCOPY FLX DX W/COLLJ SPEC WHEN PFRMD 12/12/2014 Colonoscopy COLONOSCOPY FLX DX W/COLLJ SPEC WHEN PFRMD 01/03/2020 Colonoscopy DISKECTOMY, LUMBAR, SINGLE SP 10/03/2000 L4-5 with cages per pt report PAST SURGICAL HISTORY OF 03/03/2009 right lumpectomy and sentinel node biopsy - Dr. Reynolds - [facility] PAST SURGICAL HISTORY OF Right 02/20/2013 Right TKA REVISE MEDIAN N/CARPAL TUNNEL SURG Right [facility] [place]? FAMILY HISTORY Problem Relation Age of Onset Diabetes Father Heart Mother congenital valve problem Diabetes Sister also has hx breast cancer Diabetes Sister Breast Cancer Sister sister is very private, pt not certain if it was cancer or not. Cancer Maternal Aunt uterine cancer Social History Tobacco Use Smoking status: Never Smokeless tobacco: Never Vaping Use Vaping status: Never Used Substance Use Topics Alcohol use: Yes Comment: Occasional Wine Drug use: Never Past medical history, appointments, medications, allergies reviewed. Pertinent Lab/Diagnostic Studies are reviewed and discussed today Current Outpatient Medications: semaglutide (OZEMPIC) 0.25 mg or 0.5 mg (2 mg/3 mL) pen fluticasone (FLONASE) 50 mcg/actuation nasal spray amLODIPine (NORVASC) 5 mg tablet atenolol (TENORMIN) 25 mg tablet gabapentin (NEURONTIN) 300 mg capsule hydroCHLOROthiazide 25 mg tablet levothyroxine (SYNTHROID) 100 mcg tablet liraglutide (VICTOZA) 0.6 mg/ 0.1 ml subcutaneous pen injector lisinopril (ZESTRIL) 40 mg tablet metFORMIN ER (GLUCOPHAGE XR) 500 mg 24 hr tablet pentoxifylline ER (TRENTAL) 400 mg CR tablet simvastatin (ZOCOR) 20 mg tablet diosmin complex no.1 (VASCULERA) 630 mg tab BIOTIN ORAL MEDICATION, NON-DATABASE betamethasone dipropionate (DIPROSONE) 0.05 % cream mupirocin (BACTROBAN) 2 % ointment aspirin, enteric coated 81 mg EC tablet acetaminophen (TYLENOL) 500 mg tablet multivitamins(DAILY MULTIVITAMIN TAB) triamcinolone acetonide (NASACORT) 55 mcg nasal inhaler Insulin Santa Ysabel, Disposable, (BD ULTRA-FINE MARCELO PEN NEEDLE) 32 gauge x 5/32 blood sugar diagnostic (ONE TOUCH VERIO) test strip Lancets (ONE TOUCH DELICA) lancets Review of Systems CONSTITUTIONAL: No fevers, chills night sweats, unintended weight loss CARDIOVASCULAR: No chest pain, dyspnea, palpitations, orthopnea, PND, ankle edema. PULM: No dyspnea, unexplained cough. GI: No dysphagia/odynophagia, problematic reflux, constipation, diarrhea, changes in stool habits, hematochezia, melena. : No new urinary complaints, including dysuria, gross hematuria or pyuria. NEURO: No new balance problems, peripheral weakness/paresthesias or numbness of concern. Physical Exam BP 104/68 Pulse 114 Temp 36.7 C (98.1 F) (Temporal) Wt 100.2 kg (221 lb) BMI 41.76 kg/m General appearance: Well appearing, alert, in no acute distress, large abdominal pannus. Skin: Skin color, texture, turgor normal, no suspicious rashes or lesions Head: Normocephalic, no masses, lesions, tenderness or abnormalities Eyes: Anicteric sclera. Pupils are equally round and reactive to light. Extraocular movements are intact. Lungs: Lungs clear to auscultation. No wheezing, rhonchi, rales Heart: RRR without murmur, gallop, or rubs. Extremities: She has scales on bilateral legs, the skin is thin, areas of redness, some areas wherethere seems to be ulcers which have healed. There is some erythema overall but not very much. ASSESSMENT/PLAN: 1. Vasomotor rhinitis - ICD9: 477.9, ICD10: J30.0 (primary diagnosis) - AZELASTINE 137 MCG-FLUTICASONE 50 MCG/SPRAY NASAL SPRAY - CONSULT TO ENT 2. Post-nasal drip - ICD9: 784.91, ICD10: R09.82 - AZELASTINE 137 MCG-FLUTICASONE 50 MCG/SPRAY NASAL SPRAY - CONSULT TO ENT 3. Obesity, Class III, BMI >= 40 - ICD9: 278.01, ICD10: E66.01 Weight increasing - Behavioral intervention 4. Stage 3a chronic kidney disease (HCC) - ICD9: 585.3, ICD10: N18.31 - eGFR: 50 Stable - Counseled on avoiding NSAIDs, adequate hydration 5. Type 2 diabetes mellitus with peripheral neuropathy (HCC) - ICD9: 250.60, 357.2, ICD10: E11.42 - Controlled - Continue current medications 6. Weight gain - ICD9: 783.1, ICD10: R63.5 7. Malaise - ICD9: 780.79, ICD10: R53.81 8. Increased abdominal girth - ICD9: 789.30, ICD10: R19.8 - ECHO - PERFLUTREN LIPID MICROSPHERES 1.1 MG/ML INJECTION IN NS 10 ML - SODIUM CHLORIDE 0.9 % (FLUSH) INJECTION SYRINGE - NT PRO BNP - COMPREHENSIVE METABOLIC PANEL - US ASCITES SURVEY - US ABD RIGHT UPPER QUADRANT 9. Cardiac arrhythmia, unspecified cardiac arrhythmia type - ICD9: 427.9, ICD10: I49.9 She has afib with RVR. - ECG COMPLETE - ECHO - PERFLUTREN LIPID MICROSPHERES 1.1 MG/ML INJECTION IN NS 10 ML - SODIUM CHLORIDE 0.9 % (FLUSH) INJECTION SYRINGE - NT PRO BNP 10. Edema due to malnutrition, due to unspecified malnutrition type (HCC) - ICD9: 262, ICD10: E43 - ECHO - PERFLUTREN LIPID MICROSPHERES 1.1 MG/ML INJECTION IN NS 10 ML - SODIUM CHLORIDE 0.9 % (FLUSH) INJECTION SYRINGE - US ASCITES SURVEY - US ABD RIGHT UPPER QUADRANT 11. Palpitations - ICD9: 785.1, ICD10: R00.2 - ECHO - PERFLUTREN LIPID MICROSPHERES 1.1 MG/ML INJECTION IN NS 10 ML - SODIUM CHLORIDE 0.9 % (FLUSH) INJECTION SYRINGE - NT PRO BNP 12. Dyspnea, unspecified type - ICD9: 786.09, ICD10: R06.00 - NT PRO BNP - US ASCITES SURVEY - US ABD RIGHT UPPER QUADRANT EKG was done which found her to have A-fib with RVR and with the 30 pound weight all in her lower abdomen and her not being able to sleep at night because of PND and dyspnea she was sent to the ER Jeana Guerra MD [facility] NoteHNO ID: [id number] Author: MAC CEPSEDES MD Service: ? Author Type: Physician Type: Progress Notes Filed: 12/22/2024 13:53 Note Text: Patient presents with: Cough: Chest and head congestion x1 month, SOB HPI: Dealing with clear post nasal drainage for 2 months. Feeling worse the last 2 days; worse left sinus pressure, fatigue, and colored/bloody drainage. Positive symptoms: drainage cough, Sinus pressure, Nasal Congestion, Post nasal drainage, Fatigue, Negative symptoms: Shortness of breath, Wheezing, Chest tightness, Chest pain, Sore throat, Fever, Vomiting, Diarrhea, OTC: coricidin cold medicine, fluticasone nasal spray, propping upright Denies exposure to allergen or pet. MEDICATIONS: Current Outpatient Medications Medication Sig fluticasone (FLONASE) 50 mcg/actuation nasal spray Use 2 Sprays in each nostril once daily. Rinse mouth after use. amLODIPine (NORVASC) 5 mg tablet Take 1 tablet by mouth two times a day. atenolol (TENORMIN) 25 mg tablet Take 1 tablet by mouth once daily. gabapentin (NEURONTIN) 300 mg capsule Take 1 capsule by mouth once daily. hydroCHLOROthiazide 25 mg tablet Take 1 tablet by mouth every afternoon. (Patient taking differently: Take 25 mg by mouth once daily.) levothyroxine (SYNTHROID) 100 mcg tablet Take 1 tablet by mouth once daily. liraglutide (VICTOZA) 0.6 mg/ 0.1 ml subcutaneous pen injector Inject 1.8 mg subcutaneously once daily. lisinopril (ZESTRIL) 40 mg tablet Take 1 tablet by mouth once daily. metFORMIN ER (GLUCOPHAGE XR) 500 mg 24 hr tablet Take 2 tablets by mouth once daily. pentoxifylline ER (TRENTAL) 400 mg CR tablet Take 1 tablet by mouth three times a day. simvastatin (ZOCOR) 20 mg tablet Take 1 tablet by mouth daily at bedtime. Insulin Santa Ysabel, Disposable, (BD ULTRA-FINE MARCELO PEN NEEDLE) 32 gauge x /32 USE ONE NEEDLE FOR EACH DOSE ONCE DAILY diosmin complex no.1 (VASCULERA) 630 mg tab Take 1 tablet by mouth once daily. BIOTIN ORAL Take 5,000 mcg by mouth. betamethasone dipropionate (DIPROSONE) 0.05 % cream Apply to rash on neck once or twice a day as needed. mupirocin (BACTROBAN) 2 % ointment Apply 1 application to affected area twice daily. (Patient taking differently: Apply 1 application to affected area every 12 hours as needed (neuropathy). As needed) blood sugar diagnostic (ONE TOUCH VERIO) test strip Test glucose 1x/daily, 250.00, insulin use: No Lancets (ONE TOUCH DELICA) lancets Test blood sugar(s) 1x/daily. Dx: 250.00. Insulin: No (Patient taking differently: 1 Each as directed. Dx: 250.00) aspirin, enteric coated 81 mg EC tablet Take 81 mg by mouth once daily. acetaminophen (TYLENOL) 500 mg tablet Take 1,000 mg by mouth every 6 hours as needed. multivitamins(DAILY MULTIVITAMIN TAB) Take one(1) tablet daily. semaglutide (OZEMPIC) 0.25 mg or 0.5 mg (2 mg/3 mL) pen Inject 0.5 mg subcutaneously one time a week. triamcinolone acetonide (NASACORT) 55 mcg nasal inhaler Use 2 Sprays in the nose once daily. (Patient not taking: Reported on 08/30/2024) MEDICATION, NON-DATABASE Take by mouth. Vascularum per vascular surgeon. Unknown dose (Patient not taking: Reported on 08/30/2024) No current facility-administered medications for this visit. ALLERGIES: ALLERGIES Allergen Reactions Lovenox [Enoxaparin* Rash, Itching Oxycontin [Oxycodon* Mental Status Change, Other: See Comments sx of a stroke -- disoriented Penicillins Rash, Other: See Comments epidermolysis Codeine GI Upset VITALS: BP 142/91 Pulse 96 Temp 36.4 ?C (97.6 ?F) Resp 20 Wt 96.4 kg (212 lb 8.4 oz) SpO2 97% BMI 40.16 kg/m? PHYSICAL EXAM: GEN: Pleasant, in no acute distress. HEENT: PERRL, EOMI, conjunctiva clear Ears: Hearing aids removed. Cerumen in left canal. RTM without erythema, bulge, or effusion Sinuses: non-tender frontal sinus, non-tender maxillary sinuses; points to left frontal sinus as location of pressure Throat: moist mucous membranes, no erythema, no exudate Neck: supple, no thyromegaly, no lymphadenopathy HEART: regular rate, regular rhythm, no murmurs LUNGS: clear to auscultation, no wheezes or crackles, no increased WOB ASSESSMENT/PLAN: 1. Acute non-recurrent sinusitis, unspecified location - ICD9: 461.9, ICD10: J01.90 History consistent with secondary bacterial sinusitis. - DOXYCYCLINE MONOHYDRATE 100 MG CAPSULE She declines viral testing for COVID/flu/RSV which could also explain her recent worsening. Follow-up with primary care or ear nose and throat if postnasal drainage persists. Mac Cespedes, [facility] [place]02-01-2025 History of Present illness Narrative* Mac Cespedes MD - 12/22/2024 1:34 PM EST Patient presents with: Cough: Chest and head congestion x1 month, SOB HPI: Dealing with clear post nasal drainage for 2 months. Feeling worse the last 2 days; worse left sinus pressure, fatigue, and colored/bloody drainage. Positive symptoms: drainage cough, Sinus pressure, Nasal Congestion, Post nasal drainage, Fatigue, Negative symptoms: Shortness of breath, Wheezing, Chest tightness, Chest pain, Sore throat, Fever, Vomiting, Diarrhea, OTC: coricidin cold medicine, fluticasone nasal spray, propping upright Denies exposure to allergen or pet. MEDICATIONS: Current Outpatient Medications Medication Sig fluticasone (FLONASE) 50 mcg/actuation nasal spray Use 2 Sprays in each nostril once daily. Rinse mouth after use. amLODIPine (NORVASC) 5 mg tablet Take 1 tablet by mouth two times a day. atenolol (TENORMIN) 25 mg tablet Take 1 tablet by mouth once daily. gabapentin (NEURONTIN) 300 mg capsule Take 1 capsule by mouth once daily. hydroCHLOROthiazide 25 mg tablet Take 1 tablet by mouth every afternoon. (Patient taking differently: Take 25 mg by mouth once daily.) levothyroxine (SYNTHROID) 100 mcg tablet Take 1 tablet by mouth once daily. liraglutide (VICTOZA) 0.6 mg/ 0.1 ml subcutaneous pen injector Inject 1.8 mg subcutaneously once daily. lisinopril (ZESTRIL) 40 mg tablet Take 1 tablet by mouth once daily. metFORMIN ER (GLUCOPHAGE XR) 500 mg 24 hr tablet Take 2 tablets by mouth once daily. pentoxifylline ER (TRENTAL) 400 mg CR tablet Take 1 tablet by mouth three times a day. simvastatin (ZOCOR) 20 mg tablet Take 1 tablet by mouth daily at bedtime. Insulin Santa Ysabel, Disposable, (BD ULTRA-FINE MARCELO PEN NEEDLE) 32 gauge x 5/32 USE ONE NEEDLE FOR EACH DOSE ONCE DAILY diosmin complex no.1 (VASCULERA) 630 mg tab Take 1 tablet by mouth once daily. BIOTIN ORAL Take 5,000 mcg by mouth. betamethasone dipropionate (DIPROSONE) 0.05 % cream Apply to rash on neck once or twice a day as needed. mupirocin (BACTROBAN) 2 % ointment Apply 1 application to affected area twice daily. (Patient taking differently: Apply 1 application to affected area every 12 hours as needed (neuropathy). As needed) blood sugar diagnostic (ONE TOUCH VERIO) test strip Test glucose 1x/daily, 250.00, insulin use: No Lancets (ONE TOUCH DELICA) lancets Test blood sugar(s) 1x/daily. Dx: 250.00. Insulin: No (Patient taking differently: 1 Each as directed. Dx: 250.00) aspirin, enteric coated 81 mg EC tablet Take 81 mg by mouth once daily. acetaminophen (TYLENOL) 500 mg tablet Take 1,000 mg by mouth every 6 hours as needed. multivitamins(DAILY MULTIVITAMIN TAB) Take one(1) tablet daily. semaglutide (OZEMPIC) 0.25 mg or 0.5 mg (2 mg/3 mL) pen Inject 0.5 mg subcutaneously one time a week. triamcinolone acetonide (NASACORT) 55 mcg nasal inhaler Use 2 Sprays in the nose once daily. (Patient not taking: Reported on 08/30/2024) MEDICATION, NON-DATABASE Take by mouth. Vascularum per vascular surgeon. Unknown dose (Patient not taking: Reported on 08/30/2024) No current facility-administered medications for this visit. ALLERGIES: ALLERGIES Allergen Reactions Lovenox [Enoxaparin* Rash, Itching Oxycontin [Oxycodon* Mental Status Change, Other: See Comments sx of a stroke -- disoriented Penicillins Rash, Other: See Comments epidermolysis Codeine GI Upset VITALS: BP 142/91 Pulse 96 Temp 36.4 C (97.6 F) Resp 20 Wt 96.4 kg (212 lb 8.4 oz) SpO2 97% BMI40.16 kg/m PHYSICAL EXAM: GEN: Pleasant, in no acute distress. HEENT: PERRL, EOMI, conjunctiva clear Ears: Hearing aids removed. Cerumen in left canal. RTM without erythema, bulge, or effusion Sinuses: non-tender frontal sinus, non-tender maxillary sinuses; points to left frontal sinus as location of pressure Throat: moist mucous membranes, no erythema, no exudate Neck: supple, no thyromegaly, no lymphadenopathy HEART: regular rate, regular rhythm, no murmurs LUNGS: clear to auscultation, no wheezes or crackles, no increased WOB ASSESSMENT/PLAN: 1. Acute non-recurrent sinusitis, unspecified location - ICD9: 461.9, ICD10: J01.90 History consistent with secondary bacterial sinusitis. - DOXYCYCLINE MONOHYDRATE 100 MG CAPSULE She declines viral testing for COVID/flu/RSV which could also explain her recent worsening. Follow-up with primary care or ear nose and throat if postnasal drainage persists. Mac Cespedes MD [facility] Telephone encounter Note * Telephone Encounter - Laura Victoria LPN - 12/17/2024 4:53 PM EST Spoke with pt and information listed below given. Pt verbalizes understanding. Laura Victoria LPN [facility]01-27-2025 Miscellaneous Notes* Telephone Encounter - Laura Victoria LPN - 12/17/2024 4:53 PM EST Spoke with pt and information listed below given. Pt verbalizes understanding. Laura Victoria LPN * Telephone Encounter - Mckayla Card RN - 12/17/2024 4:37 PM EST Called and left a voicemail for the Patient to call back and ask for a nurse to receive the providers message. Mckayla Card RN * Telephone Encounter - Greta Arreola APRN.CNP - 12/17/2024 9:10 AM EST If she needs both of those, they are fine to take at the same time. I would recommend we see if youinsurance covers the ozempic first. I have sent in a prescription to your pharmacy. If it is covered an affordable. Then we will start at the 0.5mg dose. Which you will start the day after your last victoza injection and then continue once weekly. You will follow up 4 weeks after starting this and then we will hopefully be able to increase the dose. Thank you Greta Arreola APRN.GIL * Telephone Encounter - Sharon Hadley LPN - 12/14/2024 3:13 PM EST Patient returned call and went over notes below from Greta Arreola ELECTRONIC SEMICONDUCTOR PROCESSOR. Patient said she has 4 weeks of victoza at home. She wants to know what Greta thinks if she should finish it ? She is also asking if she should still be taking the Coricidin HBP soft gels with the Fluticasone nasal spray? * Telephone Encounter - Isabel Lagos LPN - 12/14/2024 10:22 AM EST Called and left message for patient to call office back for update of note below. Isabel Lagos LPN December 14, 2024 10:22 AM * Telephone Encounter - Greta Arreola APRN.CNP - 12/14/2024 9:53 AM EST Yes the fluticasone nasal spary is fine to start. 2 sprays each nostril before bed. Rinse out your throat after use. Does she want to start ozempic now or wait until finished with her victoza? Thank you Greta Arreola APRN.WATCH CRYSTAL CUTTER * Telephone Encounter - Elenita Ponce RN - 12/13/2024 3:15 PM EST Patient returns call and message below reviewed. Patient reports that she would be willing to try the Ozempic. She currently has one month supply of Victoza left. Patient also reports that she has had clear sinus/post-nasal drip since beginning of October and has been taking Coricidin which has helped thin the nasal secretions but she reports at night she is having to sit up to sleep as the drainage goes in the back of her throat and causes her difficulty breathing. Patient has an order for fluticasone nasal spray but was told not to take it while on Coricidin. Patient asking if she could take the fluticasone or if provider has any other recommendations to help her sinuses from draining into the back of her throat at night. Afebrile. Denies SOB, Chest Pain, Wheezing, or any respiratory symptoms. Elenita Ponce RN * Telephone Encounter - Sheela De Santiago OCCA - 12/13/2024 9:50 AM EST TC no answer. Left VM to return call. ZANE Dominguez * Telephone Encounter - Jeana Guerra MD - 12/12/2024 6:22 PM EST It is great that she is offered ozempic, would the patient like to try that? Would be easier for her Regards, Jeana Guerra MD * Telephone Encounter - Elenita Ponce RN - 12/12/2024 3:29 PM EST [employer] Statistical Programmer calls with patient to notify of below. 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 If provider would like to appeal for Victoza instead of changing to formulary prescription phone number is [phone]. Elenita Ponce RN * Telephone Encounter - Michelle Medeiros LPN - 12/11/2024 4:16 PM EST Unfortunately, your coverage or payment under your Medicare Part D benefit for LIRAGLUTIDE 2-ELKIN 18MG/3 ML was denied. Here s why we made our decision: We cover this drug when our criteria are met. The unmet criteria are: you have tried or cannot use two of the following: Mounjaro, Ozempic, Rybelsus, or Trulicity. This decision was from the [employer] NonPreferred [employer] and GLP-1/[employer]IP [employer] Pharmacy Coverage Policy at [employer]. * Telephone Encounter - Michelle Medeiros LPN - 12/11/2024 4:09 PM EST Images from the original note were not included. Prior Authorization History liraglutide (VICTOZA) 0.6 mg/ 0.1 ml subcutaneous pen injector History View all authorizations for this medication Denied 12/11/2024 4:02 PM Appeal supported: No Note from payer: We cover this drug when our criteria are met. The unmet criteria are: you have tried or cannot use two of the following: Mounjaro, Ozempic, Rybelsus, or Trulicity. This decision was from the [employer] Non-Preferred [employer] and GLP-1/GIP [employer] Pharmacy Coverage Policy at [employer]. Payer: [employer] [phone] Notes Time User Attachment Attachment received from payer. 12/11/2024 4:02 PM [facility], Rx Priorauth In Document Waiting for Payer Response 12/11/2024 12:19 PM Deadline to reply: December 26, 2024 Sending user: Michelle Medeiros LPN Note to payer: Pt is 84 year old stable with current DM treatment. See office notes and A1c results. Payer: [employer] [phone] Attachment: Document: ePA Attachment liraglutide (VICTOZA) 0.6 mg/ 0.1 ml subcutaneous pen injector 12/11/2024-12:18 PM Nonpreferred [employer] MPA Standard Prior Auth [facility] Telephone encounter Note * Telephone Encounter - Mckayla Card RN - 12/17/2024 4:37 PM EST Called and left a voicemail for the Patient to call back and ask for a nurse to receive the providers message. Mckayla Card RN [facility]01-27-[facility] Telephone encounter Note* Telephone Encounter - Greta Arreola APRN.GIL - 12/17/2024 9:10 AM EST If she needs both of those, they are fine to take at the same time. I would recommend we see if youinsurance covers the ozempic first. I have sent in a prescription to your pharmacy. If it is covered an affordable. Then we will start at the 0.5mg dose. Which you will start the day after your last victoza injection and then continue once weekly. You will follow up 4 weeks after starting this and then we will hopefully be able to increase the dose. Thank you Greta Arreola APRN.GIL [facility]01-24-2025 Telephone encounter Note* Telephone Encounter - Sharon Hadley LPN - 12/14/2024 3:13 PM EST Patient returned call and went over notes below from Greta Arreola ELECTRONIC SEMICONDUCTOR PROCESSOR. Patient said she has 4 weeks of victoza at home. She wants to know what Greta thinks if she should finish it ? She is also asking if she should still be taking the Coricidin HBP soft gels with the Fluticasone nasal spray? [facility]01-24-2025 Telephone encounter Note* Telephone Encounter - Isabel Lagos LPN - 12/14/2024 10:22 AM EST Called and left message for patient to call office back for update of note below. Isabel Lagos LPN December 14, 2024 10:22 AM [facility]01-24-2025 Telephone encounter Note* Telephone Encounter - Greta Arreola APRN.CNP - 12/14/2024 9:53 AM EST Yes the fluticasone nasal spary is fine to start. 2 sprays each nostril before bed. Rinse out your throat after use. Does she want to start ozempic now or wait until finished with her victoza? Thank you Greta Arreola APRN.[place] [id number] Telephone encounter Note* Telephone Encounter - Elenita Ponce RN - 12/13/2024 3:15 PM EST Patient returns call and message below reviewed. Patient reports that she would be willing to try the Ozempic. She currently has one month supply of Victoza left. Patient also reports that she has had clear sinus/post-nasal drip since beginning of October and has been taking Coricidin which has helped thin the nasal secretions but she reports at night she is having to sit up to sleep as the drainage goes in the back of her throat and causes her difficulty breathing. Patient has an order for fluticasone nasal spray but was told not to take it while on Coricidin. Patient asking if she could take the fluticasone or if provider has any other recommendations to help her sinuses from draining into the back of her throat at night. Afebrile. Denies SOB, Chest Pain, Wheezing, or any respiratory symptoms. Elenita Ponce RN [facility]01-23-2025 Telephone encounter Note* Telephone Encounter - Sheela De Santiago OCCA - 12/13/2024 9:50 AM EST TC no answer. Left VM to return call. ZANE Doimnguez [facility]01-22-2025 Telephone encounter Note* Telephone Encounter - Jeana Guerra MD - 12/12/2024 6:22 PM EST It is great that she is offered ozempic, would the patient like to try that? Would be easier for her Regards, Jeana Guerra MD [facility]01-22-2025 Telephone encounter Note* Telephone Encounter - Elenita Ponce RN - 12/12/2024 3:29 PM EST [employer] Program[employer] calls with patient to notify of below. 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 If provider would like to appeal for Victoza instead of changing to formulary prescription phone number is [phone]. Elenita Ponce RN [facility]01-21-2025 Telephone encounter Note* Telephone Encounter - Michelle Medeiros LPN - 12/11/2024 4:16 PM EST Unfortunately, your coverage or payment under your Medicare Part D benefit for LIRAGLUTIDE 2-ELKIN 18MG/3 ML was denied. Here s why we made our decision: We cover this drug when our criteria are met. The unmet criteria are: you have tried or cannot use two of the following: Mounjaro, Ozempic, Rybelsus, or Trulicity. This decision was from the [employer] NonPreferred [employer]on[employer] and GLP-1/GIP [employer]onists Pharmacy Coverage Policy at [employer]. [facility]01-21-2025 Telephone encounter Note* Telephone Encounter - Michelle Medeiros LPN - 12/11/2024 4:09 PM EST Images from the original note were not included. Prior Authorization History liraglutide (VICTOZA) 0.6 mg/ 0.1 ml subcutaneous pen injector History View all authorizations for this medication Denied 12/11/2024 4:02 PM Appeal supported: No Note from payer: We cover this drug when our criteria are met. The unmet criteria are: you have tried or cannot use two of the following: Mounjaro, Ozempic, Rybelsus, or Trulicity. This decision was from the [employer] Non-Preferred [employer]onists and GLP-1/GIP Agonists Pharmacy Coverage Policy at [employer]. Payer: [employer] [phone] Notes Time User Attachment Attachment received from payer. 12/11/2024 4:02 PM [facility], Rx Priorauth In Document Waiting for Payer Response 12/11/2024 12:19 PM Deadline to reply: December 26, 2024 Sending user: Michelle Medeiros LPN Note to payer: Pt is 84 year old stable with current DM treatment. See office notes and A1c results. Payer: Mauricio [phone] Attachment: Document: ePA Attachment liraglutide (VICTOZA) 0.6 mg/ 0.1 ml subcutaneous pen injector 12/11/2024-12:18 PM Nonpreferred [employer] MPA Standard Prior Auth [facility]11-27-2024 Telephone encounter Note* Telephone Encounter - Betsy Abad RN - 10/17/2024 1:03 PM EST Form signed, faxed back to [employer] with positive confirmation, and placed in scanning. [facility]11-27-2024 Miscellaneous Notes* Telephone Encounter - Betsy Abad RN - 10/17/2024 1:03 PM EST Form signed, faxed back to [employer] with positive confirmation, and placed in scanning. * Telephone Encounter - Betsy Abad RN - 10/15/2024 9:29 AM EST Received Letter of Medical Necessity form from [employer]. Placed in Warren's folder for completion. * Telephone Encounter - Olena Escobar RN - 09/27/2024 9:19 AM EST ----- Message ----- From: Adrian Jeong APRN-WATCH CRYSTAL CUTTER Sent: 09/26/2024 4:46 PM EST To: Olena Escobar RN Note updated and refaxed to [phone] * Telephone Encounter - Susana Rogers - 09/26/2024 10:52 AM EST Received call from Orland with [employer]. States for lymphedema pump they are needing filled conservative therapy for 4 weeks, compression elevation exercise, and most recent office visit note. Callback [phone] ext [phone] * Telephone Encounter - Betsy Abad RN - 09/17/2024 8:08 AM EDT Pump order faxed along with demographics page and NURIS note to [employer] with positive confirmation, and placed in scanning. [facility] Telephone encounter Note* Telephone Encounter - Betsy Abad RN - 10/15/2024 9:29 AM EST Received Letter of Medical Necessity form from [employer]. Placed in Warren's folder for completion. [facility]11-25-2024 Miscellaneous Notes* Telephone Encounter - Betys Abad RN - 10/15/2024 9:29 AM EST Received Letter of Medical Necessity form from [employer]. Placed in Adrian's folder for completion. * Telephone Encounter - Olena Escobar RN - 09/27/2024 9:19 AM EST ----- Message ----- From: MARY Martinez Sent: 09/26/2024 4:46 PM EST To: Olena Escobar RN Note updated and refaxed to [phone] * Telephone Encounter - Susana Rogers - 09/26/2024 10:52 AM EST Received call from [employer] with [employer]. States for lymphedema pump they are needing filled conservative therapy for 4 weeks, compression elevation exercise, and most recent office visit note. Callback [phone] ext [phone] * Telephone Encounter - Betsy Abad RN - 09/17/2024 8:08 AM EDT Pump order faxed along with demographics page and NURIS note to [employer] with positive confirmation, and placed in scanning. documented in this encounterOS[facility] Miscellaneous Notes* Telephone Encounter - Betsy Abad RN - 10/15/2024 9:29 AM EST Received Letter of Medical Necessity form from [employer]. Placed in Warren's folder for completion. * Telephone Encounter - Olena Escobar RN - 09/27/2024 9:19 AM EST ----- Message ----- From: Adrian Jeong APRN-WATCH CRYSTAL CUTTER Sent: 09/26/2024 4:46 PM EST To: Olena Escobar RN Note updated and refaxed to [phone] * Telephone Encounter - Susana Rogers - 09/26/2024 10:52 AM EST Received call from Allison with [employer]. States for lymphedema pump they are needing filled conservative therapy for 4 weeks, compression elevation exercise, and most recent office visit note. Callback [phone] ext [phone] * Telephone Encounter - Betsy Abad RN - 09/17/2024 8:08 AM EDT Pump order faxed along with demographics page and NURIS note to [employer] with positive confirmation, and placed in scanning. documented in this encounterOSGu[facility]11-21-2024 Instructions* Patient Instructions* Miranda De - 10/11/2024 3:12 PM EST Diabetes Foot Care Instructions When you have diabetes, proper foot care is very important. Poor foot care may lead to amputation of a foot or leg. As a person with diabetes, you are more vulnerable to foot problems, because diabetes can damage your nerves and reduce blood flow to your feet. Here are some diabetes foot care tips to follow: Wash and Dry Your Feet Daily Use mild soaps Use warm water Pat your skin dry; do not rub. Thoroughly dry your feet. After washing, use lotion on your feet to prevent cracking. Do not put lotion between your toes. Examine Your Feet Each Day Check the tops and bottoms of your feet. Have someone else look at your feet if you cannot see them. Check for dry, cracked skin. Look for blisters, cuts, scratches, or other sores. Check for redness, increased warmth, or tenderness when touching any area of your feet. Check for ingrown toenails, corns, and calluses. If you get a blister or sore from your shoes, do not pop it. Apply a bandage and wear a differentpair of shoes. Take Care of Your Toenails Cut toenails after bathing, when they are soft. Cut toenails straight across and smooth with a nail file. Avoid cutting into the corners of toes. Do not cut cuticles. If you have neuropathy (or decreased sensation in your feet) a events director should always cut your toenails. Be Careful When Exercising Walk and exercise in comfortable shoes. Do not exercise when you have open sores on your feet. Protect Your Feet With Shoes and Socks Never go barefoot. Always protect your feet by wearing shoes or hard-soled slippers or footwear. Avoid shoes with high heels and pointed toes. Avoid shoes that expose your toes or heels (such as open-toed shoes or sandals). These types of shoes increase your risk for injury and potential infections. Try on new footwear with the type of socks you usually wear. Do not wear new shoes for more than an hour at a time. Change your socks daily. Look and feel inside your shoes before putting them on to make sure there are no foreign objects orrough areas. Avoid tight socks. Wear natural-fiber socks (cotton, wool, or a cotton-wool blend). Wear special shoes if your health care provider recommends them. Wear shoes/boots that will protect your feet from various weather conditions (cold, moisture, etc.). Make sure your shoes fit properly. If you have neuropathy (nerve damage), you may not notice that your shoes are too tight. Perform the footwear test described below. Footwear Test Use this simple test to see if your shoes fit correctly: Stand on a piece of paper. (Make sure you are standing and not sitting, because your foot changes shape when you stand.) Trace the outline of your foot. Trace the outline of your shoe. Compare the tracings: Is the shoe too narrow? Is your foot crammed into the shoe? The shoe should be at least 1/2 inch longer than your longest toe and as wide as your foot. Proper Shoe Choices The following types of shoes are best for people with diabetes Closed toes and heels Leather uppers without a seam inside At least 1/2 inch extra space at the end of your longest toe Inside of shoe should be soft with no rough areas Outer sole should be made of stiff material Shoes should be at least as wide as your feet Tips for Foot Care in Diabetes Don't wait to treat a minor foot problem if you have diabetes. Follow your health care provider's guidelines and first aid guidelines. Report foot injuries and infections to your health care provider immediately. Check water temperature with your elbow, not your foot. Do not use a heating pad on your feet. Do not cross your legs. Do not self-treat your corns, calluses, or other foot problems. Go to your health care provider or events director to treat these conditions. documented in [facility] encounter[facility]11[facility] History of Present illness Narrative* Miranda De - 10/11/2024 3:11 PM EST Last saw pcp: 08/30/24 Subjective: Patient presents to clinic c/o painful toenails. They state that the nails are especially painful with shoe gear and pressure. Patient states that nails 1-5 b/l are painful. Patient admits to being diabetic. No other pedal complaints at this time. Patient states no change in medications or medical history since last visit. Objective: Patient presents to clinic ambulating in dress shoes Vasc: DP and PT pulses are palpable bilateral. CFT is less than 5 seconds bilateral. Skin temperature is warm to cool proximal to distal bilateral. There is moderate edema or varicosities noted. Neuro: Protective sensation is intact to the foot and toes when tested with the 5.07 SWM bilateral.Vibratory sensation is decreased at the hallux IPJ bilateral. The hallux is downgoing bilateral. Derm: Nails 1-5 b/l are painful, discolored-yellow, thick, crumbly, dystrophic and with subungal debris. Skin is of normal turgor, texture and hair growth is absent bilateral. There are callus to right 5th toe. No ulcerations, scars, verruca or other lesions noted. Ortho: Muscle strength is 5/5 for all pedal groups tested. Ankle joint DF is decreased with the knee extended with no pain or crepitus noted. 1st MPJ ROM is decreased bilateral. Assessment: (B35.1) Onychomycosis (primary encounter diagnosis) (M79.674) Pain in toe of right foot (M79.675) Pain in toe of left foot (E11.42) Type 2 diabetes mellitus with peripheral neuropathy (HCC) (I87.2) Venous insufficiency (L84) Callus of foot Plan: Patient was seen and evaluated. Nails 1-5 bilateral were debrided in length and thickness. Callus to right 5th toe reduced with dremmel. Patient was instructed on the continued importance of diabetic foot care along with proper diet andkeeping their blood sugar under control to prevent complications. Stressed the importance of avoiding barefoot walking, wearing good shoes and inspection of feet Patient is to RTC in 3-4 months. Miranda De DPM * Mckayla Ayala RN - 10/11/2024 2:19 PM EST Patient presents with: Left Foot - Established Patient, Follow Up, Diabetic Foot Care Right Foot - Established Patient, Follow Up, Diabetic Foot Care Patient presents for follow up diabetic foot/nail care. Right big toe has history of ingrowns and is tender. [facility] 03/30/24 documented in this encounterEast [facility] Hospital11-21-2024 NoteHNO ID: [id number] Author: MIRANDA DE, ? Service: ? Author Type: Physician Type: Progress Notes Filed: 10/11/2024 15:13 Note Text: Last saw pcp: 08/30/24 Subjective: Patient presents to clinic c/o painful toenails. They state that the nails are especially painful with shoe gear and pressure. Patient states that nails 1-5 b/l are painful. Patient admits to being diabetic. No other pedal complaints at this time. Patient states no change in medications or medical history since last visit. Objective: Patient presents to clinic ambulating in dress shoes Vasc: DP and PT pulses are palpable bilateral. CFT is less than 5 seconds bilateral. Skin temperature is warm to cool proximal to distal bilateral. There is moderate edema or varicosities noted. Neuro: Protective sensation is intact to the foot and toes when tested with the 5.07 SWM bilateral. Vibratory sensation is decreased at the hallux IPJ bilateral. The hallux is downgoing bilateral. Derm: Nails 1-5 b/l are painful, discolored-yellow, thick, crumbly, dystrophic and with subungal debris. Skin is of normal turgor, texture and hair growth is absent bilateral. There are callus to right 5th toe. No ulcerations, scars, verruca or other lesions noted. Ortho: Muscle strength is 5/5 for all pedal groups tested. Ankle joint DF is decreased with the knee extended with no pain or crepitus noted. 1st MPJ ROM is decreased bilateral. Assessment: (B35.1) Onychomycosis (primary encounter diagnosis) (M79.674) Pain in toe of right foot (M79.675) Pain in toe of left foot (E11.42) Type 2 diabetes mellitus with peripheral neuropathy (HCC) (I87.2) Venous insufficiency (L84) Callus of foot Plan: Patient was seen and evaluated. Nails 1-5 bilateral were debrided in length and thickness. Callus to right 5th toe reduced with dremmel. Patient was instructed on the continued importance of diabetic foot care along with proper diet and keeping their blood sugar under control to prevent complications. Stressed the importance of avoiding barefoot walking, wearing good shoes and inspection of feet Patient is to RTC in 3-4 months. Miranda De, [facility]11-21-2024 NoteHNO ID: [id number] Author: MCKAYLA AYALA RN Service: ? Author Type: Registered Nurse Type: Progress Notes Filed: 10/11/2024 15:13 Note Text: Patient presents with: Left Foot - Established Patient, Follow Up, Diabetic Foot Care Right Foot - Established Patient, Follow Up, Diabetic Foot Care Patient presents for follow up diabetic foot/nail care. Right big toe has history of ingrowns and is tender. [facility]URIS 03/30/24[facility]11-15-2024 Telephone encounter Note* Telephone Encounter - Sarita Doty RN - 10/05/2024 3:14 PM EST The patient has been identified by name and date of : Yes Caregiver verified no other encounters exist for this prescription request: Yes Caregiver confirmed with patient/requestor that no other refills are due, in the near future, with this provider at this time: Yes The last office visit in the department: 08/30/2024 Does the patient have a future office visit with this provider/department: Yes 03/04/2025 Requested Prescriptions Pending Prescriptions Disp Refills fluticasone (FLONASE) 50 mcg/actuation nasal spray 1 Each 3 Sig: Use 2 Sprays in each nostril once daily. Rinse mouth after use. Sarita Doty RN October 05, 2024 3:14 PM [facility]11-15-2024 Miscellaneous Notes* Telephone Encounter - Sarita Doty RN - 10/05/2024 3:14 PM EST The patient has been identified by name and date of : Yes Caregiver verified no other encounters exist for this prescription request: Yes Caregiver confirmed with patient/requestor that no other refills are due, in the near future, with this provider at this time: Yes The last office visit in the department: 08/30/2024 Does the patient have a future office visit with this provider/department: Yes 03/04/2025 Requested Prescriptions Pending Prescriptions Disp Refills fluticasone (FLONASE) 50 mcg/actuation nasal spray 1 Each 3 Sig: Use 2 Sprays in each nostril once daily. Rinse mouth after use. Sarita Doty RN October 05, 2024 3:14 PM documented in this encounterEast [facility] Hospital11-07-2024 Telephone encounter Note * Telephone Encounter - Olena Escobar RN - 09/27/2024 9:19 AM EST ----- Message ----- From: MARY Martinez Sent: 09/26/2024 4:46 PM EST To: Olena Escobar RN Note updated and refaxed to [phone] [facility]11-06-2024 Telephone encounter Note* Telephone Encounter - Susana Rogers - 09/26/2024 10:52 AM EST Received call from [employer] with [employer]. States for lymphedema pump they are needing filled conservative therapy for 4 weeks, compression elevation exercise, and most recent office visit note. Callback [phone] ext [phone] [facility]11-06-2024 Miscellaneous Notes* Telephone Encounter - Susana Rogers - 09/26/2024 10:52 AM EST Received call from [employer] with [employer]. States for lymphedema pump they are needing filled conservative therapy for 4 weeks, compression elevation exercise, and most recent office visit note. Callback [phone] ext [phone] * Telephone Encounter - Betsy Abad RN - 09/17/2024 8:08 AM EDT Pump order faxed along with demographics page and NURIS note to [employer] with positive confirmation, and placed in scanning. documented in this encounterOSU [facility]11-05-2024 NoteHNO ID: [id number] Author: GLORIA DOAN MA Service: ? Author Type: Well Surveying Engineer Type: Progress Notes Filed: 09/25/2024 11:13 Note Text: POPULATION HEALTH NAVIGATION OUTREACH Action/FYI msg to schedule wellness, diabetic retinal eye exam Reason for Outreach Care Gap/HCC or Scheduling Wellness Visits Care Gaps due: Medicare Annual Wellness Visit Diabetic Eye Exam Patient Contacted: Unable or unnecessary to reach patient: Left message Recargo message sent Navigation Signature: Gloria Doan MA September 25, 2024 11:12 [facility]11-05-2024 History of Present illness Narrative* Gloria Doan MA - 09/25/2024 11:12 AM EST POPULATION HEALTH NAVIGATION OUTREACH Action/FYI msg to schedule wellness, diabetic retinal eye exam Reason for Outreach Care Gap/HCC or Scheduling Wellness Visits Care Gaps due: Medicare Annual Wellness Visit Diabetic Eye Exam Patient Contacted: Unable or unnecessary to reach patient: Left message [employer] message sent Navigation Signature: Gloria Doan MA September 25, 2024 11:12 AM documented in this encounterEast [facility]11-05-2024 NotePatient Outreach (NETNAV) BLESSING JACKSON I ([id number]) 1940 F Date Time Provider Department 09/25/24 GLORIA DOAN [place] During your visit today, we recorded the following information about you: Gloria Doan MA 09/25/2024 11:13 AM Signed POPULATION HEALTH NAVIGATION OUTREACH Action/FYI msg to schedule wellness, diabetic retinal eye exam Reason for Outreach Care Gap/HCC or Scheduling Wellness Visits Care Gaps due: Medicare Annual Wellness Visit Diabetic Eye Exam Patient Contacted: Unable or unnecessary to reach patient: Left message [employer] message sent Navigation Signature: Gloria Doan MA September 25, 2024 11:12 AM Allergies As of Date: 09/25/2024 Noted Allergy Reaction LOVENOX (ENOXAPARIN SODIUM) 04/14/2012 2 - Rash 9 - Itching OXYCONTIN (OXYCODONE) 12/15/2007 1 - Mental Status Change 14 - Other: See Comments Comments: sx of a stroke -- disoriented PENICILLINS 12/15/2007 2 - Rash 14 - Other: See Comments Comments: epidermolysis CODEINE 12/15/2007 8 - GI Upset Date Reviewed: 08/30/2024 Reviewed by: Isabel Lagos LPN - Fully Assessed Reason for Visit: Population Health Navigation Outreach [3910] Cmt: [employer] [facility] Prescriptions as of 09/25/2024 - fluticasone (FLONASE) 50 mcg/actuation nasal spray Use 2 Sprays in each nostril once daily. Rinse mouth after use. - amLODIPine (NORVASC) 5 mg tablet Take 1 tablet by mouth two times a day. - triamcinolone acetonide (NASACORT) 55 mcg nasal inhaler Use 2 Sprays in the nose once daily. - atenolol (TENORMIN) 25 mg tablet Take 1 tablet by mouth once daily. - gabapentin (NEURONTIN) 300 mg capsule Take 1 capsule by mouth once daily. - hydroCHLOROthiazide 25 mg tablet Take 1 tablet by mouth every afternoon. - levothyroxine (SYNTHROID) 100 mcg tablet Take 1 tablet by mouth once daily. - liraglutide (VICTOZA) 0.6 mg/ 0.1 ml subcutaneous pen injector Inject 1.8 mg subcutaneously once daily. - lisinopril (ZESTRIL) 40 mg tablet Take 1 tablet by mouth once daily. - metFORMIN ER (GLUCOPHAGE XR) 500 mg 24 hr tablet Take 2 tablets by mouth once daily. - pentoxifylline ER (TRENTAL) 400 mg CR tablet Take 1 tablet by mouth three times a day. - simvastatin (ZOCOR) 20 mg tablet Take 1 tablet by mouth daily at bedtime. - Insulin [place], Disposable, (BD ULTRA-FINE MARCELO PEN NEEDLE) 32 gauge x 32 USE ONE NEEDLE FOR EACH DOSE ONCE DAILY - diosmin complex no.1 (VASCULERA) 630 mg tab Take 1 tablet by mouth once daily. - BIOTIN ORAL Take 5,000 mcg by mouth. - MEDICATION, NON-DATABASE Take by mouth. Vascularum per vascular surgeon. Unknown dose - betamethasone dipropionate (DIPROSONE) 0.05 % cream Apply to rash on neck once or twice a day as needed. - mupirocin (BACTROBAN) 2 % ointment Apply 1 application to affected area twice daily. - blood sugar diagnostic (ONE TOUCH VERIO) test strip Test glucose 1x/daily, 250.00, insulin use: No - Lancets (ONE TOUCH DELICA) lancets Test blood sugar(s) 1x/daily. Dx: 250.00. Insulin: No - aspirin, enteric coated 81 mg EC tablet Take 81 mg by mouth once daily. - acetaminophen (TYLENOL) 500 mg tablet Take 1,000 mg by mouth every 6 hours as needed. - multivitamins(DAILY MULTIVITAMIN TAB) Take one(1) tablet daily. Problem List As Of Date 09/25/2024 Noted Resolved Essential hypertension [I10] Hypothyroidism [E03.9] DIABETES MELLITUS TYPE II-UNCOMPL [E11.9] 04/18/2015 Hyperlipidemia [E78.5] GENERAL OSTEOARTHROSIS [M15.9] Abnormal mammogram, unspecified [R92.8] 02/13/2009 08/25/2016 History of cancer of right breast [Z85.3] 04/03/2009 VENOUS INSUFFICIENCY [I87.2] 05/14/2009 08/25/2016 Abdominal pain, unspecified site [R10.9] 10/01/2011 08/25/2016 Left groin pain [R10.32] 11/04/2011 08/25/2016 Osteoarthrosis, unspecified whether generalized*02/06/2012 08/25/2016 Leg edema [R60.0] 03/28/2012 08/25/2016 Obesity, Class III, BMI 40-49.9 (morbid obesity*03/28/2012 02/14/2015 BMI 40.0-44.9, adult (HCC) [Z68.41] 02/21/2014 02/14/2015 Morbid obesity with BMI of 40.0-44.9, adult (HC*02/14/2015 03/18/2022 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*04/18/2015 Lipodermatosclerosis [M79.3] 10/23/2015 Lymphedema [I89.0] 10/23/2015 Microalbuminuria [R80.9] 03/03/2016 Family history of bilateral hip replacements [Z*11/21/2012 03/18/2022 History of total bilateral knee replacement [Z9*11/21/2013 Carpal tunnel syndrome of right wrist [G56.01] 04/13/2018 Carpal tunnel syndrome on right [G56.01] 04/13/2018 05/28/2020 Diabetic polyneuropathy associated with type 2 *05/28/2020 Right wrist pain [M25.531] 09/29/2021 03/18/2022 Arthritis of right hand [M19.041] 09/29/2021 Peripheral venous insufficiency [I87.2] 04/19/2023 Encounter Status:Closed by GLORIA DOAN on 09/25/24[facility] 09-17-2024 Telephone encounter Note* Telephone Encounter - Betsy Abad RN - 09/17/2024 8:08 AM EDT Pump order faxed along with demographics page and NURIS note to [employer] with positive confirmation, and placed in scanning. [facility]10-21-2024 History of Present illness Narrative* Adrian Jeong APRN-GIL - 09/10/2024 2:00 PM EDT Blessing Jackson is a 83 y.o. female who was seen on 09/10/2024 for evaluation of: Lipodermatosclerosis Last seen 01/24/23 Interval History LE Symptoms: Left >> Right lower extremity swelling, discoloration, pain, and hardness. Feet to calves Developed drainage from her legs after her last office visit while she was in [place] in a remote location in the [facility] Her PCP put her on Cipro She end up going to wound care and getting weekly Unna boots Of note she did have her blood pressure medication amlodipine increased two weeks prior She reports that when she spoke with Dr. Kelley that he did not feel that any procedures to her veinswould be beneficial for her. She states that she never heard from Dr. Carlton 's office and was never seen Duration of Lymphedema: Left age 17 Right 2006 Family hx of Lymphedema: N Recurrent nocturnal leg cramps which relieved by getting up and walking around the room History of cellulitis/infection of the lymphedematous limb: Y left lower extremity last May 2022 [reviewed photo]-treated with clindamycin. Non-toxic. Only other event 2017 History of dermatitis: Y BL LDS. CeraVe cream with SA History of ulcerations: YES-healed Vocation: retired Weight loss/gain: Stable Functional ambulator: N Walker or cane for assistance prn Ataxic from severe PN but tries to walk as much as she can Hx of DVT: N Hx of HF: N Potentially aggravating medications: Gabapentin [low dose] Amlodipine 5 mg dailiy Therapy: Pentoxifylline HCTZ Interested in obtaining a PCD 15-20 mmHg [OTC] very difficult to apply/remove [ must assist] Vasculera needs a refill Elevates legs in the evening Diagnostic Studies: No vascular studies since last oV Labs: Hemoglobin A1C 4.3 - 5.6 % 6.1 High ontains abnormal data COMPREHENSIVE METABOLIC PANEL Order: [id number] Component Ref Range & Units 8 d ago Protein, Total 6.3 - 8.0 g/dL 7.5 Albumin 3.9 - 4.9 g/dL 3.9 Calcium, Total 8.5 - 10.2 mg/dL 9.9 Bilirubin, Total 0.2 - 1.3 mg/dL 0.4 Alkaline Phosphatase 34 - 123 U/L 79 AST 13 - 35 U/L 23 ALT 7 - 38 U/L 17 Glucose 74 - 99 mg/dL 110 High Past Medical History: Diagnosis Date Arthritis Carpal tunnel syndrome on right 02/22/2018 No surgery at this time. 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 Diabetes mellitus History of radiation therapy 2009 Right breast DCIS Hypertension Malignant neoplasm of female breast 2009 Right breast DCIS Preop cardiovascular exam Radiation therapy 03/2009 right breast RBBB (right bundle branch block) Past Surgical History: Procedure Laterality Date RELEASE CARPAL TUNNEL Right 04/2018 KNEE REPLACEMENT Right 02/2013 TOTAL KNEE ARTHROPLASTY 2013 bilateral BREAST LUMPECTOMY Right 03/03/2009 DCIS BX LYMPH NODE Right 02/2009 One reactive lymph node negative CORE BIOPSY OF THE BREAST Right 02/12/2009 DCIS / Atypical ductal hyperplasia and fibrocystic changes BACK SURGERY HIP REPLACEMENT 2002 2011 bilateral REMOVAL CATARACT (PEM) Bilateral 05/2018 Current Outpatient Medications Medication Sig Acetaminophen 500 MG Cap Take 2 tablets by mouth at bedtime as needed. amLODIPine 2.5 MG PO TABS Take 2 tablets by mouth daily. aspirin 81 MG PO TABS Take 1 tablet by mouth daily. atenolol 50 MG PO TABS Take 0.5 tablets by mouth daily. Dietary Management Product (Vasculera) tablet One daily gabapentin 300 MG Cap Take 1 capsule by mouth at bedtime. hydrochlorothiazide 50 MG PO TABS Take 0.5 tablets by mouth daily. levothyroxine 100 MCG PO TABS Take 1 tablet by mouth every morning before breakfast. Liraglutide (VICTOZA SC) Inject 1.8 mg under the skin daily. lisinopril 40 MG PO TABS Take 1 tablet by mouth daily. metformin 500 MG PO TABS Take 1 tablet by mouth 2 times daily. multivitamin PO TABS Take 1 tablet by mouth daily. pentoxifylline 400 MG Tab CR tablet ER Take 1 tablet by mouth 3 times daily with meals. simvastatin 20 MG PO TABS Take 1 tablet by mouth daily. Allergies Allergen Reactions Lovenox [Enoxaparin Sodium] Rash Oxycodone Discoloration Pcn [Penicillin G] Rash Social History Tobacco Use Smoking status: Never Smokeless tobacco: Never Substance Use Topics Alcohol use: No Comment: rare Drug use: No Her family history includes Breast Cancer in her paternal cousin; Breast Cancer (age of onset: 55) in her sister; Breast Cancer (age of onset: 62) in her sister; Lung Cancer in her paternal aunt; Other - Specify in her sister; Ovarian Cancer in her mother; Uterine Cancer in her maternal aunt. Please refer to the scanned Cardio history form dated today for the remainder of the 12-point ROS which I have reviewed and discussed with the patient. PHYSICAL EXAMINATION Vitals: 09/10/24 1356 BP: 155/62 Pulse: 84 SpO2: 97% Blessing's body mass index is 36.47 kg/m . Lower extremity - leg measurement Ankle right: 22 Ankle left: 23.5 Calf right: 37.5 Calf left: 40 Wt Readings from Last 3 Encounters: 09/10/24 87.5 kg (193 lb) 09/10/24 87.7 kg (193 lb 6.4 oz) 09/05/23 89.4 kg (197 lb) Her physical examination on 09/10/2024 identifies her to be in no distress. Her HEENT examination is within normal limits and unremarkable. No sherrie-oral furrowing. No facial telangiectasias. Her neck is supple. She does not have an audible gallop but a grade 2/6 systolic murmur heard best at the aortic post murmur. Her abdominal examination reveals no AAA but impossible examination due to obesity with panniculus. Her extremities reveal normal [2+/2] peripheral pulses. Acrocyanosis: N BL. Livedo reticularis: N BL Digital vasospasm: N BL Peripheral edema-Lower: Y BL L>R Minimal left distal thigh Foot/toe swelling: Y BL. Stemmer's sign is positive on left/negative on right Hyperkeratosis/cutaneous fibrosis: Y BL [id number]-right Excessive local fat deposition: N Left toes are phenotypically Abnormal with exaggerated dorsal skin creases and squaring Lymphostatic verrucosis/nodules: N BL Elephantiasis: N BL Cellulitis: N BL Lymphorrhea: N BL Xeroderma: N BL Peau d' orange [dimpled or orange peel appearance]: N Varicose, reticular, or spider veins: Y BL Stasis hyperpigmentation: Y BL Stasis dermatitis: Y BL Atrophie cat: N BL Leg ulcerations: N BL Panniculitis/lipodermatosclerosis:Y BL [id number]-right. Tinea pedis: N Impression 1. Bilateral lower extremity lipodermatosclerosis-fortunately no overt active inflammation on today's examination 2. 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 3. Bilateral lower extremity stasis dermatitis/xeroderma-reasonably well controlled 4. Large pendulous abdominal panniculus- significant risk factor for phlebolymphedema due to associated chronic iliocaval compression 5. Class II obesity 6. Immobility with associated veno-muscular pump dysfunction 7. Left carotid bruit-asymptomatic 8. Remote history of venous ulceration- currently healed on today's exam Plan 1. continuous churn buttermaker pentoxifylline 400 mg with meals to reduce venous inflammation 2. As noted above, she is unable to self apply tight gradient compression stockings [nor is anyone available to assist]. Suggested trying a zippered variety and increase to 20-30 mm Hg if tolerated. 3. Try to increase activity/ambulation in order to activate calf (and thigh) muscle pumps. 4. Continue diosmiplex 630 mg once daily to reduce lympho-venous HTN/inflammation and increase vascular tone 5. Elevate legs throughout the day 6. Skin care per your suggestions 7. Order placed for PCD and in home trial to help with swelling. 8. Avoid dose escalation of amlodipine and gabapentin if possible 9. 10. RTC 1 year or sooner if needed documented in this [facility]10-21-2024 History of Present illness Narrative* MARY Martinez - 09/10/2024 2:00 PM EDT Blessing Jackson is a 83 y.o. female who was seen on 09/10/2024 for evaluation of: Lipodermatosclerosis Last seen 01/24/23 Interval History LE Symptoms: Left >> Right lower extremity swelling, discoloration, pain, and hardness. Feet to calves Developed drainage from her legs after her last office visit while she was in [place] in a remote location in the [facility] Her PCP put her on Cipro She end up going to wound care and getting weekly Unna boots Of note she did have her blood pressure medication amlodipine increased two weeks prior She reports that when she spoke with Dr. Kelley that he did not feel that any procedures to her veinswould be beneficial for her. She states that she never heard from Dr. Carlton 's office and was never seen Duration of Lymphedema: Left age 17 Right 2006 Family hx of Lymphedema: N Recurrent nocturnal leg cramps which relieved by getting up and walking around the room History of cellulitis/infection of the lymphedematous limb: Y left lower extremity last May 2022 [reviewed photo]-treated with clindamycin. Non-toxic. Only other event 2016 History of dermatitis: Y BL LDS. CeraVe cream with SA History of ulcerations: YES-healed Vocation: retired Weight loss/gain: Stable Functional ambulator: N Walker or cane for assistance prn Ataxic from severe PN but tries to walk as much as she can Hx of DVT: N Hx of HF: N Potentially aggravating medications: Gabapentin [low dose] Amlodipine 5 mg dailiy Therapy: Pentoxifylline HCTZ Interested in obtaining a PCD 15-20 mmHg [OTC] very difficult to apply/remove [ must assist] Vasculera needs a refill Elevates legs in the evening Diagnostic Studies: No vascular studies since last oV Labs: Hemoglobin A1C 4.3 - 5.6 % 6.1 High ontains abnormal data COMPREHENSIVE METABOLIC PANEL Order: [id number] Component Ref Range & Units 8 d ago Protein, Total 6.3 - 8.0 g/dL 7.5 Albumin 3.9 - 4.9 g/dL 3.9 Calcium, Total 8.5 - 10.2 mg/dL 9.9 Bilirubin, Total 0.2 - 1.3 mg/dL 0.4 Alkaline Phosphatase 34 - 123 U/L 79 AST 13 - 35 U/L 23 ALT 7 - 38 U/L 17 Glucose 74 - 99 mg/dL 110 High Past Medical History: Diagnosis Date Arthritis Carpal tunnel syndrome on right 02/22/2018 No surgery at this time. 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 Diabetes mellitus History of radiation therapy 2009 Right breast DCIS Hypertension Malignant neoplasm of female breast 2009 Right breast DCIS Preop cardiovascular exam Radiation therapy 03/2009 right breast RBBB (right bundle branch block) Past Surgical History: Procedure Laterality Date RELEASE CARPAL TUNNEL Right 04/2018 KNEE REPLACEMENT Right 02/2013 TOTAL KNEE ARTHROPLASTY 2013 bilateral BREAST LUMPECTOMY Right 03/03/2009 DCIS BX LYMPH NODE Right 02/2009 One reactive lymph node negative CORE BIOPSY OF THE BREAST Right 02/12/2009 DCIS / Atypical ductal hyperplasia and fibrocystic changes BACK SURGERY HIP REPLACEMENT 2002 2011 bilateral REMOVAL CATARACT (PEM) Bilateral 05/2018 Current Outpatient Medications Medication Sig Acetaminophen 500 MG Cap Take 2 tablets by mouth at bedtime as needed. amLODIPine 2.5 MG PO TABS Take 2 tablets by mouth daily. aspirin 81 MG PO TABS Take 1 tablet by mouth daily. atenolol 50 MG PO TABS Take 0.5 tablets by mouth daily. Dietary Management Product (Vasculera) tablet One daily gabapentin 300 MG Cap Take 1 capsule by mouth at bedtime. hydrochlorothiazide 50 MG PO TABS Take 0.5 tablets by mouth daily. levothyroxine 100 MCG PO TABS Take 1 tablet by mouth every morning before breakfast. Liraglutide (VICTOZA SC) Inject 1.8 mg under the skin daily. lisinopril 40 MG PO TABS Take 1 tablet by mouth daily. metformin 500 MG PO TABS Take 1 tablet by mouth 2 times daily. multivitamin PO TABS Take 1 tablet by mouth daily. pentoxifylline 400 MG Tab CR tablet ER Take 1 tablet by mouth 3 times daily with meals. simvastatin 20 MG PO TABS Take 1 tablet by mouth daily. Allergies Allergen Reactions Lovenox [Enoxaparin Sodium] Rash Oxycodone Discoloration Pcn [Penicillin G] Rash Social History Tobacco Use Smoking status: Never Smokeless tobacco: Never Substance Use Topics Alcohol use: No Comment: rare Drug use: No Her family history includes Breast Cancer in her paternal cousin; Breast Cancer (age of onset: 55) in her sister; Breast Cancer (age of onset: 62) in her sister; Lung Cancer in her paternal aunt; Other - Specify in her sister; Ovarian Cancer in her mother; Uterine Cancer in her maternal aunt. Please refer to the scanned Cardio history form dated today for the remainder of the 12-point ROS which I have reviewed and discussed with the patient. PHYSICAL EXAMINATION Vitals: 09/10/24 1356 BP: 155/62 Pulse: 84 SpO2: 97% Blessing's body mass index is 36.47 kg/m . Lower extremity - leg measurement Ankle right: 22 Ankle left: 23.5 Calf right: 37.5 Calf left: 40 Wt Readings from Last 3 Encounters: 09/10/24 87.5 kg (193 lb) 09/10/24 87.7 kg (193 lb 6.4 oz) 09/05/23 89.4 kg (197 lb) Her physical examination on 09/10/2024 identifies her to be in no distress. Her HEENT examination is within normal limits and unremarkable. No sherrie-oral furrowing. No facial telangiectasias. Her neck is supple. She does not have an audible gallop but a grade 2/6 systolic murmur heard best at the aortic post murmur. Her abdominal examination reveals no AAA but impossible examination due to obesity with panniculus. Her extremities reveal normal [2+/2] peripheral pulses. Acrocyanosis: N BL. Livedo reticularis: N BL Digital vasospasm: N BL Peripheral edema-Lower: Y BL L>R Minimal left distal thigh Foot/toe swelling: Y BL. Stemmer's sign is positive on left/negative on right Hyperkeratosis/cutaneous fibrosis: Y BL [id number]-ogrr-right Excessive local fat deposition: N Left toes are phenotypically Abnormal with exaggerated dorsal skin creases and squaring Lymphostatic verrucosis/nodules: N BL Elephantiasis: N BL Cellulitis: N BL Lymphorrhea: N BL Xeroderma: N BL Peau d' orange [dimpled or orange peel appearance]: N Varicose, reticular, or spider veins: Y BL Stasis hyperpigmentation: Y BL Stasis dermatitis: Y BL Atrophie cat: N BL Leg ulcerations: N BL Panniculitis/lipodermatosclerosis:Y BL [id number]-rswz-right. Tinea pedis: N Impression 1. Bilateral lower extremity lipodermatosclerosis-fortunately no overt active inflammation on today's examination 2. 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 3. Bilateral lower extremity stasis dermatitis/xeroderma-reasonably well controlled 4. Large pendulous abdominal panniculus- significant risk factor for phlebolymphedema due to associated chronic iliocaval compression 5. Class II obesity 6. Immobility with associated veno-muscular pump dysfunction 7. Left carotid bruit-asymptomatic 8. Remote history of venous ulceration- currently healed on today's exam Plan 1. longterm pentoxifylline 400 mg with meals to reduce venous inflammation 2. As noted above, she is unable to self apply tight gradient compression stockings [nor is anyone available to assist]. Suggested trying a zippered variety and increase to 20-30 mm Hg if tolerated. 3. Try to increase activity/ambulation in order to activate calf (and thigh) muscle pumps. 4. Continue diosmiplex 630 mg once daily to reduce lympho-venous HTN/inflammation and increase vascular tone 5. Elevate legs throughout the day 6. Skin care per your suggestions 7. Due to persistent and/or worsening lower extremity lymphedema despite greater than 4 weeks of compression, leg elevation, and exercise, an order has been placed for a 0651 pneumatic compression device for in home trial to help with swelling. Use 1-2 hours daily at a pressure of 40-60 mmHg. 8. Avoid dose escalation of amlodipine and gabapentin if possible 9. 10. RTC 1 year or sooner if needed [facility] Tele[facility] Note* Telephone Encounter - Tomeka Santiago RN - 09/10/2024 12:47 PM EDT Pt returned call and given provider's message below with verbalized understanding. [facility]10-21-2024 Miscellaneous Notes* Telephone Encounter - Tomeka Santiago RN - 09/10/2024 12:47 PM EDT Pt returned call and given provider's message below with verbalized understanding. * Telephone Encounter - Sharon Hadley LPN - 09/08/2024 10:07 AM EDT Phoned patient left message to return call and ask to speak to a nurse. * Telephone Encounter - Sharon Hadley LPN - 09/08/2024 10:05 AM EDT ----- Message from Jeana Guerra MD sent at 09/07/2024 5:35 PM EDT ----- No major concerns with your labs they look stable.' Regards, Jeana Guerra MD [facility] History of Present illness Narrative* Nallely Michelle RN - 09/10/2024 12:00 PM EDT Pt arrived to clinic ambulatory using her personal wheeled walker. Pt is here for one year follow up and imaging. She denies any changes in her breast, skin or nipples, no pain or nipple discharge. Pt admits she does not perform SBE often , d/t neuropathy. Patient offered a medical maintainer sewer and waterworks for sensitive exam. Patient declined maintainer sewer and waterworks. * MARY Mota - 09/10/2024 12:00 PM EDT Date of Service: 09/10/2024 History of Present Illness: Chief Complaint Patient presents with Follow-up One year follow up with imaging. Blessing Jackson is a 83 y.o. 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 Today, 09/10/24, Blessing Jackson has no new breast or chest wall complaints. She denies any new breast symptoms of pain, skin changes including redness, thickening, or peau d' orange. She denies anynew breast lesions including lumps or masses. She denies any changes to her medical or surgical history including any pending outside imaging reports. Denies any recent hospitalizations. She denies any new generalized symptoms of weight loss, fatigue, vision changes, headaches, chest pain, shortness of breath, mobility issues, or bone pain. 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 In March 03, 2009 she was treated with a right breast lumpectomy and sentinel lymph node biopsy. She did have adjuvant radiation therapy to her right breast. I have reviewed Blessing's medical, surgical and other pertinent history in detail, and have updated medication and allergy information in the computerized patient record. Physical Exam: Vital Signs: BP 166/71 (BP Position: Sitting) Pulse 65 Temp 97.3 F (36.3 C) (Oral) Resp 18 Ht 1.549 m (5' 1) Wt 87.7 kg (193 lb 6.4 oz) SpO2 96% BMI 36.54 kg/m Smoking Status Never , General/Constitutional: Well developed, well nourished female, who looks their stated age of 83 y.o.. No acute distress. HEENT: Head: Normocephalic and atraumatic. Breast/ChestWall: Right breast is smaller than left. Right breast does have some changes noted to the UOQ from her lumpectomy and radiation. Left breast there is no appreciable masses or lesions noted. Bilaterally there are no nipple or skin changes. There is no axillary or supraclavicular adenopathy. Neurological: Conscious, alert and oriented. Skin: Skin is warm and dry. She is not diaphoretic. Psychiatric: Appropiate mood and affect for her clinical situation. Impression and Plan: Impression: Blessing Jackson is a 83 y.o. postmenopausal female with a history of DCIS. Plan: Encounter for Surveillance for breast cancer: Reviewed with Kaitlin that her bilateral screening mammogram was without suspicious features. Her clinical breast/chest wall exam is also not suspicious today. Recommended: Continue to do monthly self exams including visual inspection in the mirror for skin changes, dimpling, or contour changes Continue annual mammograms: Due 09/10/2025 Call if any new breast or chest wall concerns to Surgical oncology office, Continue to follow with a primary care provider for routine health measures Return in about 1 year (around 09/10/2025) for return with Clement with annual mammogram. documented in this [facility]10-21-2024 History of Present illness Narrative* Thea Philip - 09/10/2024 11:00 AM EDT Patient offered a medical maintainer sewer and waterworks for sensitive exam. Pt declined [facility] Tele[facility] encounter Note* Telephone Encounter - Sharon Hadley LPN - 09/08/2024 10:07 AM EDT Phoned patient left message to return call and ask to speak to a nurse. [facility]10-19-2024 Telephone encounter Note* Telephone Encounter - Sharon Hadley LPN - 09/08/2024 10:05 AM EDT ----- Message from Jeana Guerra MD sent at 09/07/2024 5:35 PM EDT ----- No major concerns with your labs they look stable.' Regards, Jeana Guerra MD [facility]10-10-2024 NoteHNO ID: [id number] Author: JEANA GUERRA MD Service: ? Author Type: Physician Type: Progress Notes Filed: 08/30/2024 17:22 Note Text: Reason for Visit Patient presents with: F/U 6 months: Bilateral legs wounds, seen in [place], better now, usually sees Dr Carlos Shaw for skin. Blessing Jackson is a 82 year old female who presents here today for Above Complaints.. 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 They put her in a Mattie boot and it has helped. For her lipodermatosclerosis she was seeing a vascular doctor at [facility] Dr Warren wolfe who basically said that some possible intervention may be available for vein stripping the traditional way would be with significant complications. So suggested she tried Gordy Carlton for the atypical stropping for venous insufficiency. Dr Shaw started her on Vasculera and her swelling Is def better than before. Dr Kelley tried her on pramipexole substitution gabapentin. but that did not work for her, se of dizziness so She went back to gabapentin. Has balance issues from neuropathy, Diabetes Mellitus related most likely so has been using a type of walker to help her. Last visit we increased the victoza and her sugars are much much better than before she also 5 pounds of weight. HTN: BP uncontrolled today. Recently her amlodipine was increased but that made her too tired. She is taking 2.5 in the morning and 5 mgs in the evening. . She will check the bp for the next week and if more than 135 then go on the amlodipine. Checks BP at home. Compliant with medications. Denies any chest pain, palpitations, SOB, swelling in the feet. Careful with diet to avoid salt, trying to eat more fruits and vegetables, exercises regularly No problem-specific Assessment AND Plan notes found for this encounter. PAST MEDICAL HISTORY Diagnosis Date Cardiomegaly Cellulitis Essential hypertension, benign 1979 Generalized osteoarthrosis, unspecified site 1989 HX: breast cancer 2009 surgery at [facility] Lymphedema left leg Malignant neoplasm of upper-outer quadrant of female breast (HCC) 04/03/2009 Other and unspecified hyperlipidemia PVD (peripheral vascular disease) (HCC) Special screening for malignant neoplasms, colon 12/12/2014 Type II or unspecified type diabetes mellitus without mention of complication, not stated as uncontrolled 1992 Unspecified hypothyroidism 1970 PAST SURGICAL HISTORY Procedure Laterality Date ARTHRP ACETBLR/PROX FEM PROSTC AGRFT/ALGRFT 2002 right ARTHRP ACETBLR/PROX FEM PROSTC AGRFT/ALGRFT 02/2012 left ARTHRP KNE CONDYLEANDPLATU MEDIALANDLAT COMPARTMENTS 10/24/2006 left BX BREAST PERC VACUUM/ROTN 02/12/2009 Right COLONOSCOPY 2004 COLONOSCOPY FLX DX W/COLLJ SPEC WHEN PFRMD 12/12/2014 Colonoscopy COLONOSCOPY FLX DX W/COLLJ SPEC WHEN PFRMD 01/03/2020 Colonoscopy DISKECTOMY, LUMBAR, SINGLE SP 10/03/2000 L4-5 with cages per pt report PAST SURGICAL HISTORY OF 03/03/2009 right lumpectomy and sentinel node biopsy - Dr. Reynolds - [facility] PAST SURGICAL HISTORY OF Right 02/20/2013 Right TKA REVISE MEDIAN N/CARPAL TUNNEL SURG Right [facility] - 2018? FAMILY HISTORY Problem Relation Age of Onset Diabetes Father Heart Mother congenital valve problem Diabetes Sister also has hx breast cancer Diabetes Sister Breast Cancer Sister sister is very private, pt not certain if it was cancer or not. Cancer Maternal Aunt uterine cancer Social History Tobacco Use Smoking status: Never Smokeless tobacco: Never Vaping Use Vaping status: Never Used Substance Use Topics Alcohol use: Yes Comment: Occasional Wine Drug use: Never Past medical history, appointments, medications, allergies reviewed. Pertinent Lab/Diagnostic Studies are reviewed and discussed today Current Outpatient Medications: fluticasone (FLONASE) 50 mcg/actuation nasal spray amLODIPine (NORVASC) 5 mg tablet atenolol (TENORMIN) 25 mg tablet gabapentin (NEURONTIN) 300 mg capsule hydroCHLOROthiazide 25 mg tablet levothyroxine (SYNTHROID) 100 mcg tablet liraglutide (VICTOZA) 0.6 mg/ 0.1 ml subcutaneous pen injector lisinopril (ZESTRIL) 40 mg tablet metFORMIN ER (GLUCOPHAGE XR) 500 mg 24 hr tablet pentoxifylline ER (TRENTAL) 400 mg CR tablet simvastatin (ZOCOR) 20 mg tablet Insulin Santa Ysabel, Disposable, (BD ULTRA-FINE MARCELO PEN NEEDLE) 32 gauge x 5/32 diosmin complex no.1 (VASCULER (more content not included)...[facility]10-10-2024 History of Present illness Narrative* Jeana Guerra MD - 08/30/2024 3:05 PM EDT Reason for Visit Patient presents with: F/U 6 months: Bilateral legs wounds, seen in [place], better now, usually sees Dr Carlos Shaw for skin. Blessing Jackson is a 82 year old female who presents here today for Above Complaints.. 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 They put her in a Mattie boot and it has helped. For her lipodermatosclerosis she was seeing a vascular doctor at [facility] Dr Warren wolfe who basically said that some possible intervention may be available for vein stripping the traditional way would bewith significant complications. So suggested she tried Gordy Kolluri for the atypical stropping forvenous insufficiency. Dr Shaw started her on Vasculera and her swelling Is def better than before. Dr Kelley tried her on pramipexole substitution gabapentin. but that did not work for her, se of dizziness so She went back to gabapentin. Has balance issues from neuropathy, Diabetes Mellitus related most likely so has been using a type of walker to help her. Last visit we increased the victoza and her sugars are much much better than before she also 5 pounds of weight. HTN: BP uncontrolled today. Recently her amlodipine was increased but that made her too tired. She is taking 2.5 in the morning and 5 mgs in the evening. . She will check the bp for the next week andif more than 135 then go on the amlodipine. Checks BP at home. Compliant with medications. Denies any chest pain, palpitations, SOB, swelling in the feet. Careful with diet to avoid salt, trying to eat more fruits and vegetables, exercises regularly No problem-specific Assessment & Plan notes found for this encounter. PAST MEDICAL HISTORY Diagnosis Date Cardiomegaly Cellulitis Essential hypertension, benign 1979 Generalized osteoarthrosis, unspecified site 1989 HX: breast cancer 2008 surgery at [facility] Lymphedema left leg Malignant neoplasm of upper-outer quadrant of female breast (HCC) 04/03/2009 Other and unspecified hyperlipidemia PVD (peripheral vascular disease) (HCC) Special screening for malignant neoplasms, colon 12/12/2014 Type II or unspecified type diabetes mellitus without mention of complication, not stated as uncontrolled 1992 Unspecified hypothyroidism 1970 PAST SURGICAL HISTORY Procedure Laterality Date ARTHRP ACETBLR/PROX FEM PROSTC AGRFT/ALGRFT 2002 right ARTHRP ACETBLR/PROX FEM PROSTC AGRFT/ALGRFT 02/2012 left ARTHRP KNE CONDYLE&PLATU MEDIAL&LAT COMPARTMENTS 10/24/2006 left BX BREAST PERC VACUUM/ROTN 02/12/2009 Right COLONOSCOPY 2004 COLONOSCOPY FLX DX W/COLLJ SPEC WHEN PFRMD 12/12/2014 Colonoscopy COLONOSCOPY FLX DX W/COLLJ SPEC WHEN PFRMD 01/03/2020 Colonoscopy DISKECTOMY, LUMBAR, SINGLE SP 10/03/2000 L4-5 with cages per pt report PAST SURGICAL HISTORY OF 03/03/2009 right lumpectomy and sentinel node biopsy - Dr. Reynolds - [facility] PAST SURGICAL HISTORY OF Right 02/20/2013 Right TKA REVISE MEDIAN N/CARPAL TUNNEL SURG Right [place] [id number]? FAMILY HISTORY Problem Relation Age of Onset Diabetes Father Heart Mother congenital valve problem Diabetes Sister also has hx breast cancer Diabetes Sister Breast Cancer Sister sister is very private, pt not certain if it was cancer or not. Cancer Maternal Aunt uterine cancer Social History Tobacco Use Smoking status: Never Smokeless tobacco: Never Vaping Use Vaping status: Never Used Substance Use Topics Alcohol use: Yes Comment: Occasional Wine Drug use: Never Past medical history, appointments, medications, allergies reviewed. Pertinent Lab/Diagnostic Studies are reviewed and discussed today Current Outpatient Medications: fluticasone (FLONASE) 50 mcg/actuation nasal spray amLODIPine (NORVASC) 5 mg tablet atenolol (TENORMIN) 25 mg tablet gabapentin (NEURONTIN) 300 mg capsule hydroCHLOROthiazide 25 mg tablet levothyroxine (SYNTHROID) 100 mcg tablet liraglutide (VICTOZA) 0.6 mg/ 0.1 ml subcutaneous pen injector lisinopril (ZESTRIL) 40 mg tablet metFORMIN ER (GLUCOPHAGE XR) 500 mg 24 hr tablet pentoxifylline ER (TRENTAL) 400 mg CR tablet simvastatin (ZOCOR) 20 mg tablet Insulin Santa Ysabel, Disposable, (BD ULTRA-FINE MARCELO PEN NEEDLE) 32 gauge x 5/32 diosmin complex no.1 (VASCULERA) 630 mg tab betamethasone dipropionate (DIPROSONE) 0.05 % cream mupirocin (BACTROBAN) 2 % ointment Lancets (ONE TOUCH DELICA) lancets aspirin, enteric coated 81 mg EC tablet acetaminophen (TYLENOL) 500 mg tablet multivitamins(DAILY MULTIVITAMIN TAB) triamcinolone acetonide (NASACORT) 55 mcg nasal inhaler BIOTIN ORAL MEDICATION, NON-DATABASE blood sugar diagnostic (ONE TOUCH VERIO) test strip Review of Systems CONSTITUTIONAL: No fevers, chills night sweats, unintended weight loss CARDIOVASCULAR: No chest pain, dyspnea, palpitations, orthopnea, PND, ankle edema. PULM: No dyspnea, unexplained cough. GI: No dysphagia/odynophagia, problematic reflux, constipation, diarrhea, changes in stool habits, hematochezia, melena. : No new urinary complaints, including dysuria, gross hematuria or pyuria. NEURO: No new balance problems, peripheral weakness/paresthesias or numbness of concern. Physical Exam BP 158/72 (BP Site: Left Arm) Pulse (!) 50 Ht 154.9 cm (5' 1) Wt 87.2 kg (192 lb 3.2 oz) SpO2 99% BMI 36.32 kg/m General appearance: Well appearing, alert, in no acute distress, well nourished. Skin: Skin color, texture, turgor normal, no suspicious rashes or lesions Head: Normocephalic, no masses, lesions, tenderness or abnormalities Eyes: Anicteric sclera. Pupils are equally round and reactive to light. Extraocular movements are intact. Lungs: Lungs clear to auscultation. No wheezing, rhonchi, rales Heart: RRR without murmur, gallop, or rubs. Extremities: She has scales on bilateral legs, the skin is thin, areas of redness, some areas wherethere seems to be ulcers which have healed. There is some erythema overall but not very much. ASSESSMENT/PLAN: 1. Type 2 diabetes mellitus with peripheral neuropathy (HCC) - ICD9: 250.60, 357.2, ICD10: E11.42 (primary diagnosis) - HEMOGLOBIN A1C - COMPREHENSIVE METABOLIC PANEL - COMPLETE BLOOD COUNT - THYROID STIMULATING HORMONE - LIPID PANEL BASIC 2. Essential hypertension - ICD9: 401.9, ICD10: I10 This the importance of having blood sugars controlled to less than 130 systolic. We advised her to increase her Norvasc to 5 mg - Recommend home blood pressure monitoring, to bring results to next visit - Encouraged sodium restriction, DASH or Mediterranean diet - Recommend regular aerobic exercise 3. Hyperlipidemia, unspecified hyperlipidemia type - ICD9: 272.4, ICD10: E78.5 - Controlled - Counseled on healthy diet and regular exercise 4. Acquired hypothyroidism - ICD9: 244.9, ICD10: E03.9 We spent a lot of time discussing about her lipodermatosclerosis and what are the neck step to take. She was advised to come here for wound care. Has not had the best experience with wound care here.She is happy to be on the pentoxifylline at the vascular[facility], currently her legs are looking good and if she gets any flares we can send her to the wound clinic. Advised her to keep soft compressions onall the time, elevate her legs and to keep checking on her legs. She does have an appointment with Dr. Shaw coming up and to keep that. Jeana Guerra MD [facility] Telephone encounter Note * Telephone Encounter - Mckayla Card RN - 07/03/2024 12:38 PM EDT The patient has been identified by name and date of : Yes Caregiver verified no other encounters exist for this prescription request: Yes Caregiver confirmed with patient/requestor that no other refills are due, in the near future, with this provider at this time: Yes The last office visit in the department: 04/12/2024 Does the patient have a future office visit with this provider/department: Yes 09/18/2024 Requested Prescriptions Pending Prescriptions Disp Refills fluticasone (FLONASE) 50 mcg/actuation nasal spray 1 Each 3 Sig: Use 2 Sprays in each nostril once daily. Rinse mouth after use. Mckayla Card RN July 03, 2024 12:38 PM [facility]08-13-2024 Miscellaneous Notes* Telephone Encounter - Mckayla Card RN - 07/03/2024 12:38 PM EDT The patient has been identified by name and date of : Yes Caregiver verified no other encounters exist for this prescription request: Yes Caregiver confirmed with patient/requestor that no other refills are due, in the near future, with this provider at this time: Yes The last office visit in the department: 04/12/2024 Does the patient have a future office visit with this provider/department: Yes 09/18/2024 Requested Prescriptions Pending Prescriptions Disp Refills fluticasone (FLONASE) 50 mcg/actuation nasal spray 1 Each 3 Sig: Use 2 Sprays in each nostril once daily. Rinse mouth after use. Mckayla Card RN July 03, 2024 12:38 PM documented in this encounter[facility]05-[facility] History of Present illness Narrative* Greta Arreola APRN.GIL - 04/12/2024 8:23 AM EDT CC: Patient presents with: Recheck: Follow up BP HPI Blessing Jackson is a 83 year old female who presents today for blood pressure follow up. Had amlodipine increased 2 weeks ago and reports she is tolerating this well. HTN: Ms. Jackson indicates that she is feeling well and denies any symptoms referable to elevated blood pressure. Specifically denies headache, chest pain, palpitations, dyspnea, and peripheral edema. Patient denies any side effects of her medication(s) and is compliant with their regimen. She doescheck BP's away from this office with average BP's in the 110s-140s/70s range. Blessing stays physically active with house work. She watches her diet for sodium, low fat and low cholesterol most of thetime. Last 3 Encounter BP Readings: Date: BP: 04/12/2024 134/66 03/29/2024 168/77[BP JEFFERY AVERAGE[ 02/14/2024 88/52 Is about to leave to [place] location which she gets bactrim from PCP for any urinary tract infection or skin infection as it is so difficult to get any where for treatment. REVIEW OF SYSTEMS See HPI PAST MEDICAL HISTORY Diagnosis Date Cardiomegaly Cellulitis Essential hypertension, benign 1979 Generalized osteoarthrosis, unspecified site 1989 HX: breast cancer 2009 surgery at [facility] Lymphedema left leg Malignant neoplasm of upper-outer quadrant of female breast (HCC) 04/03/2009 Other and unspecified hyperlipidemia PVD (peripheral vascular disease) ([facility]) Special screening for malignant neoplasms, colon 12/12/2014 Type II or unspecified type diabetes mellitus without mention of complication, not stated as uncontrolled 1992 Unspecified hypothyroidism 1970 PAST SURGICAL HISTORY Procedure Laterality Date ARTHRP ACETBLR/PROX FEM PROSTC AGRFT/ALGRFT 2002 right ARTHRP ACETBLR/PROX FEM PROSTC AGRFT/ALGRFT 02/2012 left ARTHRP KNE CONDYLE&PLATU MEDIAL&LAT COMPARTMENTS 10/24/2006 left BX BREAST PERC VACUUM/ROTN 02/12/2009 Right COLONOSCOPY 2004 COLONOSCOPY FLX DX W/COLLJ SPEC WHEN PFRMD 12/12/2014 Colonoscopy COLONOSCOPY FLX DX W/COLLJ SPEC WHEN PFRMD 01/03/2020 Colonoscopy DISKECTOMY, LUMBAR, SINGLE SP 10/03/2000 L4-5 with cages per pt report PAST SURGICAL HISTORY OF 03/03/2009 right lumpectomy and sentinel node biopsy - Dr. Reynolds - [facility] PAST SURGICAL HISTORY OF Right 02/20/2013 Right TKA REVISE MEDIAN N/CARPAL TUNNEL SURG Right [facility] - 2019? ALLERGIES Lovenox [Enoxaparin Sodium], Oxycontin [Oxycodone], Penicillins, and Codeine MEDICATIONS triamcinolone acetonide (NASACORT) 55 mcg nasal inhaler Use 2 Sprays in the nose once daily. amLODIPine (NORVASC) 5 mg tablet Take 1 tablet by mouth two times a day. atenolol (TENORMIN) 25 mg tablet Take 1 tablet by mouth once daily. gabapentin (NEURONTIN) 300 mg capsule Take 1 capsule by mouth once daily. hydroCHLOROthiazide 25 mg tablet Take 1 tablet by mouth every afternoon. levothyroxine (SYNTHROID) 100 mcg tablet Take 1 tablet by mouth once daily. liraglutide (VICTOZA) 0.6 mg/ 0.1 ml subcutaneous pen injector Inject 1.8 mg subcutaneously once daily. lisinopril (ZESTRIL) 40 mg tablet Take 1 tablet by mouth once daily. metFORMIN ER (GLUCOPHAGE XR) 500 mg 24 hr tablet Take 2 tablets by mouth once daily. pentoxifylline ER (TRENTAL) 400 mg CR tablet Take 1 tablet by mouth three times a day. simvastatin (ZOCOR) 20 mg tablet Take 1 tablet by mouth daily at bedtime. Insulin Santa Ysabel, Disposable, (BD ULTRA-FINE MARCELO PEN NEEDLE) 32 gauge x 32 USE ONE NEEDLE FOR EACH DOSE ONCE DAILY diosmin complex no.1 (VASCULERA) 630 mg tab Take 1 tablet by mouth once daily. BIOTIN ORAL Take 5,000 mcg by mouth. MEDICATION, NON-DATABASE Take by mouth. Vascularum per vascular surgeon. Unknown dose fluticasone (FLONASE) 50 mcg/actuation nasal spray Use 2 Sprays in each nostril once daily. Rinse mouth after use. betamethasone dipropionate (DIPROSONE) 0.05 % cream Apply to rash on neck once or twice a day as needed. mupirocin (BACTROBAN) 2 % ointment Apply 1 application to affected area twice daily. (Patient taking differently: Apply 1 application to affected area every 12 hours as needed (neuropathy). As needed) blood sugar diagnostic (ONE TOUCH VERIO) test strip Test glucose 1x/daily, 250.00, insulin use: No Lancets (ONE TOUCH DELICA) lancets Test blood sugar(s) 1x/daily. Dx: 250.00. Insulin: No (Patient taking differently: 1 Each as directed. Dx: 250.00) aspirin, enteric coated 81 mg EC tablet Take 81 mg by mouth once daily. acetaminophen (TYLENOL) 500 mg tablet Take 1,000 mg by mouth every 6 hours as needed. multivitamins(DAILY MULTIVITAMIN TAB) Take one(1) tablet daily. FAMILY HISTORY Problem Relation Age of Onset Diabetes Father Heart Mother congenital valve problem Diabetes Sister also has hx breast cancer Diabetes Sister Breast Cancer Sister sister is very private, pt not certain if it was cancer or not. Cancer Maternal Aunt uterine cancer Social History Tobacco Use Smoking status: Never Smokeless tobacco: Never Vaping Use Vaping Use: Never used Substance Use Topics Alcohol use: Yes Comment: Occasional Wine Drug use: Never PHYSICAL EXAM BP 134/66 Pulse 60 Resp 16 Wt 88 kg (194 lb) SpO2 98% BMI 36.66 kg/m General Appearance: well appearing, in no acute distress, alert Eyes: conjunctiva pink and moist, no icterus, sclera white, non-injected Lungs: Lungs clear to auscultation. No wheezing, rhonchi, rales. Heart: RRR without murmur, gallop, or rubs. No ectopy Health maintenance reviewed with patient: Advance Directive Discussion due on 11/21/2023 Covid-19 Vaccine(2022- season) due on 12/19/2023 DTaP,Tdap,Td Vaccine(2 - Td or Tdap) due on 09/29/2024 Shingrix Vaccine(2 of 3) due on 09/29/2024 Dilated Retinal Exam due on 09/16/2024 HbA1C due on 09/27/2024 Diabetic Foot Exam due on 03/30/2025 LDL Cholesterol due on 04/10/2025 Bone Density Screening Completed Influenza Vaccine Completed Behavioral Health Screening Completed RSV Vaccine Completed Pneumococcal Vaccine: 65+ Completed Urine Albumin:Creatinine Ratio Discontinued DATA REVIEWED: Most recent labs ASSESSMENT/PLAN: 1. Essential hypertension - ICD9: 401.9, ICD10: I10 - Improving control - Continue current medications - Recommend home blood pressure monitoring, to bring results to next visit - Encouraged sodium restriction, DASH or Mediterranean diet - Recommend regular aerobic exercise - AMLODIPINE 5 MG TABLET - will follow up in August after returning from [place]. - will continue to check BP and call if consistently greater than 140/80 Prescription instructions reviewed with patient as applicable. Potential red flag symptoms discussed with the patient. Reviewed appropriate action plan to take if red flag symptoms occur. Patient agreeable to treatment plan. Greta Arreola APRN.WATCH CRYSTAL CUTTER documented in this encounter[facility]05-[facility]24 History of Present illness Narrative* Argentina Escobar PA-C - 04/04/2024 11:47 AM EDT Blessing Jackson is now 7 weeks s/p left CTR (02/14/24). Doing well overall. Denies any numbness/tingling. Pain continues to improve. Has some sensitivity around the incision but is doing well. Incision well healed. No erythema, no drainage. Full range of motion of wrist and fingers. Intact sensation to all digits. Brisk capillary refill. Scar massage May return to activities as tolerated. The patient was instructed to call if she has any concerns at all. Follow up prn Argentina Escobar PA-C documented in this encounterEast [facility]05-10-2024 History of Present illness Narrative* Miranda De - 03/30/2024 11:44 AM EDT Last saw pcp: 03/29/24 Subjective: Patient presents to clinic c/o painful toenails. They state that the nails are especially painful with shoe gear and pressure. Patient states that nails 1-5 b/l are painful. No other pedal complaints at this time. Patient states no change in medications or medical history since last visit. Objective: Patient presents to clinic ambulating in [facility] Vasc: DP and PT pulses are faintly palpable bilateral. CFT is less than 5 seconds bilateral. Skin temperature is warm to cool proximal to distal bilateral. There is moderate edema or varicosities noted. Neuro: Protective sensation is decreased to the foot and toes when tested with the 5.07 SWM bilateral. Vibratory sensation is absent at the hallux IPJ bilateral. The hallux is downgoing bilateral. Derm: Nails 1-5 b/l are painful, discolored-yellow, thick, crumbly, dystrophic and with subungal debris. Skin is of normal turgor, texture and hair growth is absent bilateral. There are no hyperkeratosis, ulcerations, scars, verruca or other lesions noted. Ortho: Muscle strength is 5/5 for all pedal groups tested. Ankle joint DF is decreased with the knee extended with no pain or crepitus noted. 1st MPJ ROM is decreased bilateral. Assessment: (B35.1) Onychomycosis (primary encounter diagnosis) (M79.674) Pain in toe of right foot (M79.675) Pain in toe of left foot (E11.42) Type 2 diabetes mellitus with peripheral neuropathy (HCC) Plan: Patient was seen and evaluated. Nails 1-5 bilateral were debrided in length and thickness. Patient was instructed on the continued importance of diabetic foot care along with proper diet and keeping their blood sugar under control to prevent complications. Discussed diabetes and early neuropathy. Discussed importance of avoiding b arefoot walking, wearing good shoes and inspecting feet. Offered diabetic shoe. Patient declined. Patient is to RTC in 3-4 months. Miranda De DPM * Emilie Hunt RN - 03/30/2024 11:05 AM EDT Patient presents with: Left Foot - Established Patient, Diabetic Foot Care Right Foot - Established Patient, Diabetic Foot Care documented in this encounterEast [facility]05-09-[facility]24 History of Present illness Narrative* Elizabeth Jackson MA - 03/29/2024 11:30 AM EDT BP Manual readin/70 Pulse: 66 LEFT arm REGULAR cuff BP Jeffery Average: 168/77 Pulse: 58 LEFT arm REGULAR cuff 1. 168/82 Pulse: 53 2. 164/79 Pulse: 60 3. 170/71 Pulse: 54 4. 168/80 Pulse: 60 BP JEFFERY AVERAGE: 168/77 Pulse: 58 * Greta Arreola APRN.WATCH CRYSTAL CUTTER - 03/29/2024 11:06 AM EDT CC: Patient presents with: F/U 6 Month HPI Blessing Jackson is a 83 year old female who presents today for routine follow up prior to leaving to go to her [facility] for the summer. HTN and HLD: Ms. Jackson indicates that she is feeling well and denies any symptoms referable to elevated blood pressure. Specifically denies headache, chest pain, palpitations, dyspnea, and peripheral edema. Patient denies any side effects of her medication(s) and is compliant with their regimen. She does not check BP's generally. Blessing denies regular aerobic exercise but tries to stay physically active. She watches her diet for sodium, low fat and low cholesterol most of the time. Last 3 Encounter BP Readings: Date: BP: 03/29/2024 164/70 02/14/2024 88/52 01/27/2024 124/66 DIABETES MELLITUS: Ms. Jackson denies excessive thirst or increased frequency of urination, chest pain or dyspnea , numbness, tingling or pain in extremities, new or unusual visual symptoms, low sugar/hypoglycemic reactions, weight loss/gain, lightheadedness/dizziness, and bowel changes/loose stools. Follows a diabetic diet most of the time. She is compliant with medication(s) and is tolerating med(s) without any side effects. She reports checking her glucose on a infrequent to not at all basisschedule. Patient's last HgA1C was Hemoglobin A1C (%) Date Value 03/27/2024 5.9 09/22/2023 6.2 09/16/2021 7.2 03/18/2021 7.1 ) Last Ophthalmology exam was within the past 6 months Hypothyroidism: Takes medication as ordered. Denies any abnormal change in energy or weight. Decreased Kidney Function: Has not had level checked in years. Avoids anti- inflammatories. Drinks average of 3 cups of water a day. Denies any difficulty, decrease, or change in urination REVIEW OF SYSTEMS See HPI PAST MEDICAL HISTORY Diagnosis Date Cardiomegaly Cellulitis Essential hypertension, benign 1979 Generalized osteoarthrosis, unspecified site 1989 HX: breast cancer 2009 surgery at [facility] Lymphedema left leg Malignant neoplasm of upper-outer quadrant of female breast (HCC) 04/03/2009 Other and unspecified hyperlipidemia PVD (peripheral vascular disease) (HCC) Special screening for malignant neoplasms, colon 12/12/2014 Type II or unspecified type diabetes mellitus without mention of complication, not stated as uncontrolled 1992 Unspecified hypothyroidism 1970 PAST SURGICAL HISTORY Procedure Laterality Date ARTHRP ACETBLR/PROX FEM PROSTC AGRFT/ALGRFT 2002 right ARTHRP ACETBLR/PROX FEM PROSTC AGRFT/ALGRFT 02/2012 left ARTHRP KNE CONDYLE&PLATU MEDIAL&LAT COMPARTMENTS 10/24/2006 left BX BREAST PERC VACUUM/ROTN 02/12/2009 Right COLONOSCOPY 2004 COLONOSCOPY FLX DX W/COLLJ SPEC WHEN PFRMD 12/12/2014 Colonoscopy COLONOSCOPY FLX DX W/COLLJ SPEC WHEN PFRMD 01/03/2020 Colonoscopy DISKECTOMY, LUMBAR, SINGLE SP 10/03/2000 L4-5 with cages per pt report PAST SURGICAL HISTORY OF 03/03/2009 right lumpectomy and sentinel node biopsy - Dr. Reynolds - [facility] PAST SURGICAL HISTORY OF Right 02/20/2013 Right TKA REVISE MEDIAN N/CARPAL TUNNEL SURG Right [facility] - 2019? ALLERGIES Lovenox [Enoxaparin Sodium], Oxycontin [Oxycodone], Penicillins, and Codeine MEDICATIONS triamcinolone acetonide (NASACORT) 55 mcg nasal inhaler Use 2 Sprays in the nose once daily. diosmin complex no.1 (VASCULERA) 630 mg tab Take 1 tablet by mouth once daily. BIOTIN ORAL Take 5,000 mcg by mouth. MEDICATION, NON-DATABASE Take by mouth. Vascularum per vascular surgeon. Unknown dose fluticasone (FLONASE) 50 mcg/actuation nasal spray Use 2 Sprays in each nostril once daily. Rinse mouth after use. betamethasone dipropionate (DIPROSONE) 0.05 % cream Apply to rash on neck once or twice a day as needed. mupirocin (BACTROBAN) 2 % ointment Apply 1 application to affected area twice daily. (Patient taking differently: Apply 1 application to affected area every 12 hours as needed (neuropathy). As needed) blood sugar diagnostic (ONE TOUCH VERIO) test strip Test glucose 1x/daily, 250.00, insulin use: No Lancets (ONE TOUCH DELICA) lancets Test blood sugar(s) 1x/daily. Dx: 250.00. Insulin: No (Patient taking differently: 1 Each as directed. Dx: 250.00) aspirin, enteric coated 81 mg EC tablet Take 81 mg by mouth once daily. acetaminophen (TYLENOL) 500 mg tablet Take 1,000 mg by mouth every 6 hours as needed. multivitamins(DAILY MULTIVITAMIN TAB) Take one(1) tablet daily. amLODIPine (NORVASC) 5 mg tablet Take 1 tablet by mouth two times a day. atenolol (TENORMIN) 25 mg tablet Take 1 tablet by mouth once daily. gabapentin (NEURONTIN) 300 mg capsule Take 1 capsule by mouth once daily. hydroCHLOROthiazide 25 mg tablet Take 1 tablet by mouth every afternoon. levothyroxine (SYNTHROID) 100 mcg tablet Take 1 tablet by mouth once daily. liraglutide (VICTOZA) 0.6 mg/ 0.1 ml subcutaneous pen injector Inject 1.8 mg subcutaneously once daily. lisinopril (ZESTRIL) 40 mg tablet Take 1 tablet by mouth once daily. metFORMIN ER (GLUCOPHAGE XR) 500 mg 24 hr tablet Take 2 tablets by mouth once daily. pentoxifylline ER (TRENTAL) 400 mg CR tablet Take 1 tablet by mouth three times a day. simvastatin (ZOCOR) 20 mg tablet Take 1 tablet by mouth daily at bedtime. Insulin Santa Ysabel, Disposable, (BD ULTRA-FINE MARCELO PEN NEEDLE) 32 gauge x USE ONE NEEDLE FOR EACH DOSE ONCE DAILY FAMILY HISTORY Problem Relation Age of Onset Diabetes Father Heart Mother congenital valve problem Diabetes Sister also has hx breast cancer Diabetes Sister Breast Cancer Sister sister is very private, pt not certain if it was cancer or not. Cancer Maternal Aunt uterine cancer Social History Tobacco Use Smoking status: Never Smokeless tobacco: Never Vaping Use Vaping Use: Never used Substance Use Topics Alcohol use: Yes Comment: Occasional Wine Drug use: Never PHYSICAL EXAM BP 168/77 Pulse (!) 58 Resp 16 Wt 87.6 kg (193 lb 1.9 oz) SpO2 98% BMI 36.49 kg/m General Appearance: well appearing, in no acute distress, alert Pysch: mood and affect broad and appropriate Eyes: conjunctiva pink and moist, no icterus, sclera white, non-injected Lungs: Lungs clear to auscultation. No wheezing, rhonchi, rales. Heart: RRR without murmur, gallop, or rubs. No ectopy Health maintenance reviewed with patient: Advance Directive Discussion due on 11/21/2023 Covid-19 Vaccine( season) due on 12/19/2023 Diabetic Foot Exam due on 04/19/2024 DTaP,Tdap,Td Vaccine(2 - Td or Tdap) due on 09/29/2024 Shingrix Vaccine(2 of 3) due on 09/29/2024 Dilated Retinal Exam due on 09/16/2024 LDL Cholesterol due on 09/22/2024 HbA1C due on 09/27/2024 Bone Density Screening Completed Influenza Vaccine Completed Behavioral Health Screening Completed RSV Vaccine Completed Pneumococcal Vaccine: 65+ Completed Urine Albumin:Creatinine Ratio Discontinued DATA REVIEWED: Most recent labs ASSESSMENT/PLAN: 1. Essential hypertension - ICD9: 401.9, ICD10: I10 (primary diagnosis) - Uncontrolled - Continue current medications but increasing amlodipine - follow up in 2 weeks - Recommend home blood pressure monitoring, to bring results to next visit - Encouraged sodium restriction, DASH or Mediterranean diet - Recommend regular aerobic exercise - AMLODIPINE 5 MG TABLET - ATENOLOL 25 MG TABLET 2. Hyperlipidemia, unspecified hyperlipidemia type - ICD9: 272.4, ICD10: E78.5 - Control undetermined, due for labs - Continue current medications - Counseled on healthy diet and regular exercise - Discussed need for and benefit of weight loss. BMI 36.49 kg/(m^2) - SIMVASTATIN 20 MG TABLET - COMPREHENSIVE METABOLIC PANEL - LIPID PANEL BASIC 3. Type 2 diabetes mellitus with peripheral neuropathy (HCC) - ICD9: 250.60, 357.2, ICD10: E11.42 - Controlled - Continue current medications - Blood glucose monitoring on a once daily schedule - Counseled on healthy diet and regular exercise - Discussed need for and benefit of weight loss. BMI 36.49 kg/(m^2) - GABAPENTIN 300 MG CAPSULE - LIRAGLUTIDE 0.6 MG/0.1 ML (18 MG/3 ML) SUBCUTANEOUS PEN INJECTOR - METFORMIN ER 500 MG TABLET,EXTENDED RELEASE 24 HR - PEN NEEDLE, DIABETIC 32 GAUGE X /32 4. Hypothyroidism, adult - ICD9: 244.9, ICD10: E03.9 Stable and asymptomatic - Instructed patient on importance of taking on an empty stomach either first thing in the morning or at bedtime. - LEVOTHYROXINE 100 MCG TABLET 5. Function kidney decreased - ICD9: 593.9, ICD10: N28.9 - discussed increasing hydration, avoiding Nsaids - will recheck in 2 weeks - COMPREHENSIVE METABOLIC PANEL Prescription instructions reviewed with patient as applicable. Potential red flag symptoms discussed with the patient. Reviewed appropriate action plan to take if red flag symptoms occur. Patient agreeable to treatment plan. Greta Arreola APRN.CNP [facility] History of Present illness Narrative* Yee Lema RN - 02/29/2024 1:41 PM EDT ORTH CARE COORDINATION POST OPERATIVE NURSE VISIT Patient has been identified by name and date of : Yes Under direction of Dr Wells post op visit for suture removal and incision check done Patient is accompanied by: self Surgery: LEFT open decompression of the median nerve at the wrist Date of Surgery: 02/14/2024 Activity She/He is cleared to return to work without restrictions Incision healing appropriately. No drainage. No evidence of infection. Sutures removed today. Intact sensation to all digits. Brisk capillary refill Follow up Appointment advised to follow with Dr Wells/[place] in 4 weeks Patient aware of goals, to return to ADL's. Any barriers to achieving goal? No PAIN EVALUATION No data found in the last 1 encounters. Medication Update: No I demonstrated scar massage in the office and encouraged the patient to perform it using Eucerin/Vaseline or if concerned about the scar appearance, Serica gel ( silicone based) for 5 minutes, 3 times a day. Yee Lema RN documented [facility] History and physical note * Samuel Harman PA-C - 01/27/2024 1:40 PM EST HISTORY AND PHYSICAL EXAMINATION SERVICE DATE: 01/27/2024 SERVICE TIME: 2:10 PM PRIMARY CARE PHYSICIAN: Jeana Guerra MD Assessment Patient has the following medical conditions which may affect sherrie-operative course: Diabetic polyneuropathy associated with type 2 diabetes mellitus (HCC) Assessment: reports more RLS, Stable on RX Essential hypertension Assessment: BP today in clinic 124/66. Stable on RX. Hyperlipidemia Assessment: Stable on RX Peripheral venous insufficiency Assessment: followed with vascular [facility] and was recommended Vasculera that patient takes daily, reports symptoms - pain, swelling and skin infections have all improved 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lbuminuria, without long-term current use of insulin(HCC) Assessment: Reports compliance to medication. Reports BS checks NONE. Following with PCP. Encouraged lifestyle modifications. Hemoglobin A1C (%) Date Value 09/22/2023 6.2 04/06/2023 5.9 09/16/2021 7.2 03/18/2021 7.1 ) Hypothyroidism Assessment: Stable on RX History of cancer of right breast Assessment: DCIS 2008, s/p right lumpectomy and radiation Lipodermatosclerosis Assessment: Stable on RX [place] Activity Status Index: METS: Climb a flight of stairs or walk up a hill (5.50 METs) DASI Score: 5.5 Patient denies any chest pain or undue shortness of breath with the above physical activity. Patient is limited most or all of the time (uses scooter, mobility device). Clinical Frailty Scale: 3. Well, with treated comorbid disease STOP-Bang Score: Has or is being treated for high blood pressure BMI greater than 35 kg/m^2 Patient over 50 years old Denies snoring loudly Denies feeling tired, fatigued, or sleepy during the daytime Has not been observed to stop breathing or choking/gasping during sleep Does not have a large neck Non-male patient STOP-Bang Score: 3 [id number] Score: Age: >=75 Sex: female CHF history: No Hypertension history: Yes Stroke/TIA/thromboembolism history: No Vascular disease history: Yes Diabetes history: Yes [id number] Score: 6 ARISCAT Score: Age: >80 Preoperative SpO2: >=96% Respiratory infection in the last month: No Preoperative anemia: Yes Surgical incision: peripheral Duration of surgery: <2 hrs Emergency procedure: No ARISCAT Score: 27 ANESTHESIA FINDINGS: Intubation History: No history of difficult intubation. No abnormal airway history Significant Anesthesia Considerations: none Airway History: No history of difficult airway No abnormal airway history I - PHYSICAL EVALUATION AIRWAY Patient intubated: No. Tracheostomy tube not present Mallampati: IV. TM distance: >3 FB. Neck ROM: full ROM without neurological symptoms. Mouth opening: adequate. Short neck: no. Thick neck: no Lip Bite Test: III DENTAL Dental findings: teeth intact. II - ANESTHESIA PLAN Anesthetic Plan: other Anesthetic plan additional comments: *PACC/TCI - anesthesia choice. Beta John Monitoring Plan Post Procedure Analgesic Plan Prepared for Surgery: optimally prepared for surgery. Per PACC guidelines no other testing is required CONSULTS: Planned Anesthetic: other anesthesia choice REASON FOR VISIT: Blessing Jackson is a 83 year old female who is scheduled for Procedure(s): DECOMPRESSION NERVE MEDIAN CARPAL TUNNEL (Left) at the request of Grady Cuadra MD, PhD for consultation. My final recommendation will be communicated back to the requesting physician by way ofshared medical record or letter. Subjective The patient has the following: ACTIVE PROBLEM LIST Essential Hypertension Hypothyroidism Hyperlipidemia Generalized Osteoarthrosis, Unspecified Site History of Cancer of Right Breast Controlled Type 2 Diabetes Mellitus With Microalbuminuria, Without Long-Term Current Use of Insulin(Hcc) (Hcc) Lipodermatosclerosis Lymphedema Microalbuminuria History of Total Bilateral Knee Replacement Carpal Tunnel Syndrome of Right Wrist Diabetic Polyneuropathy Associated With Type 2 Diabetes Mellitus (Hcc) Arthritis of Right Hand Peripheral Venous Insufficiency COVID-19 Immunization Status Covid-19 Vaccine (Series Information) Completed 08/19/2023 Imm Admin: COVID-19 vaccine, age 12+ yr, 2022- season (MODERNA) 02/18/2022 Imm Admin: COVID-19 original vaccine, full dose, monovalent (MODERNA) 09/22/2021 Imm Admin: COVID-19 original vaccine, full dose, monovalent (MODERNA) Only the first 3 history entries have been loaded, but more history exists. CHIEF COMPLAINT: Pre-anesthesia optimization HPI: Blessing Jackson is a 83 year old female presenting for pre-anesthesia consultation. Pt has history of left hand numbness and weakness that has progressively gotten worse. Tried wearing a splintat night to help. Had right wrist carpal tunnel done previously and recovered well. Above procedure recommended to manage symptoms. Procedure scheduled on 02/14/20[facility] at [facility]. REVIEW OF SYSTEMS: General: No weight loss, malaise or fevers. Neurological: No history of TIA's, stroke, BARREL RAISER HELPER tumor, impaired sensorium, hemiplegia, paraplegia orquadraplegia. No neurological symptoms or problems. Respiratory: No history of current cough or dyspnea, or pneumonia in the past 6 weeks. No history of respiratory/pulmonary symptoms or problems. Cardiovascular: Positive for: hyperlipidemia, hypertension and PVD (symptomatic claudication) Negative for: arrhythmia, atrial fibrillation, CAD, chest pain, DVT/PE and murmur/valvular heart disease. GI: Positive for: irritable bowel syndrome (diarrhea) Negative for: dysphagia, GERD, heartburn, inflammatory bowel disease, liver disease and ETOH >2 drinks/day. : No history of dysuria, frequency or incontinence, stones or chronic kidney disease. No difficulty urinating, nocturia > 1 time per night or hematuria. MILIEU MANAGER: Negative for abnormal vaginal bleeding, abnormal vaginal discharge. Endocrine: Positive for: diabetes mellitus, diabetic neuropathy and hypothyroidism. Patient's diabetes mellitus is controlled by oral agents and + Victoza. Negative for: steroid for chronic problem. Hematology: No history of bleeding or clotting disorder. Patient is not taking anti-coagulation or platelet medications. No history of hematological symptoms or problems. Positive for: chronic anti-coagulation/platelet meds. Patient is on anti- coagulation/platelet medication(s): Aspirin. Oncology: +H/O breast CA 2009, s/p right lumpectomy and radiation. No history of CA metastasis, chemo within 30 days, or radiotherapy within 90 days. No history of oncological symptoms or problems. Psych: No history of psychiatric symptoms or problems. Musculoskeletal: See HPI. Positive for: back pain (lumbar cages). Skin: + Lipodermatosclerosis - mostly left leg. Negative for lesions, rash and itching. PAST MEDICAL HISTORY Diagnosis Date Cardiomegaly Cellulitis Essential hypertension, benign 1980 Generalized osteoarthrosis, unspecified site 1989 HX: breast cancer 2009 surgery at [facility] Lymphedema left leg Malignant neoplasm of upper-outer quadrant of female breast (HCC) 04/03/2009 Other and unspecified hyperlipidemia PVD (peripheral vascular disease) (HCC) Special screening for malignant neoplasms, colon 12/12/2014 Type II or unspecified type diabetes mellitus without mention of complication, not stated as uncontrolled 1992 Unspecified hypothyroidism 1970 PAST SURGICAL HISTORY Procedure Laterality Date ARTHRP ACETBLR/PROX FEM PROSTC AGRFT/ALGRFT 2002 right ARTHRP ACETBLR/PROX FEM PROSTC AGRFT/ALGRFT 02/2012 left ARTHRP KNE CONDYLE&PLATU MEDIAL&LAT COMPARTMENTS 10/24/2006 left BX BREAST PERC VACUUM/ROTN 02/12/2009 Right COLONOSCOPY 2004 COLONOSCOPY FLX DX W/COLLJ SPEC WHEN PFRMD 12/12/2014 Colonoscopy COLONOSCOPY FLX DX W/COLLJ SPEC WHEN PFRMD 01/03/2020 Colonoscopy DISKECTOMY, LUMBAR, SINGLE SP 10/03/2000 L4-5 with cages per pt report PAST SURGICAL HISTORY OF 03/03/2009 right lumpectomy and sentinel node biopsy - Dr. Gail SCHMITT PAST SURGICAL HISTORY OF Right 02/20/2013 Right TKA REVISE MEDIAN N/CARPAL TUNNEL SURG Right [facility] - 2018? FAMILY HISTORY Problem Relation Age of Onset Diabetes Father Heart Mother congenital valve problem Diabetes Sister also has hx breast cancer Diabetes Sister Breast Cancer Sister sister is very private, pt not certain if it was cancer or not. Cancer Maternal Aunt uterine cancer Social History Tobacco Use Smoking status: Never Smokeless tobacco: Never Vaping Use Vaping Use: Never used Substance Use Topics Alcohol use: Yes Comment: Occasional Wine Drug use: Never Prior to Admission medications as of 01/27/24 1331 Medication Sig Last Dose Taking diosmin complex no.1 (VASCULERA) 630 mg tab Take 1 tablet by mouth once daily. Taking Yes simvastatin (ZOCOR) 20 mg tablet Take 1 tablet by mouth daily at bedtime. Taking Yes hydroCHLOROthiazide 25 mg tablet take 1 tablet daily Taking Yes pentoxifylline ER (TRENTAL) 400 mg CR tablet Take 1 tablet by mouth three times a day. Taking Yes atenolol (TENORMIN) 25 mg tablet Take 1 tablet by mouth once daily. Taking Yes lisinopril (ZESTRIL) 40 mg tablet Take 1 tablet by mouth once daily. Taking Yes levothyroxine (SYNTHROID) 100 mcg tablet Take 1 tablet by mouth once daily. Taking Yes liraglutide (VICTOZA) 0.6 mg/ 0.1 ml subcutaneous pen injector Inject 1.8 mg subcutaneously once daily. Taking Yes gabapentin (NEURONTIN) 300 mg capsule Take 1 capsule by mouth once daily. Taking Yes BIOTIN ORAL Take 5,000 mcg by mouth. Taking Yes amLODIPine (NORVASC) 2.5 mg tablet Take 1 tablet by mouth twice daily. Taking Yes metFORMIN ER (GLUCOPHAGE XR) 500 mg 24 hr tablet Take 2 tablets by mouth once daily. Taking Yes Insulin Santa Ysabel, Disposable, (BD ULTRA-FINE MARCELO PEN NEEDLE) 32 gauge x 5/32 USE ONE NEEDLE FOR EACH DOSE ONCE DAILY Patient taking differently: 1 Each as directed. Uses PRN Taking Yes fluticasone (FLONASE) 50 mcg/actuation nasal spray Use 2 Sprays in each nostril once daily. Rinse mouth after use. Taking Yes betamethasone dipropionate (DIPROSONE) 0.05 % cream Apply to rash on neck once or twice a day as needed. Taking Yes mupirocin (BACTROBAN) 2 % ointment Apply 1 application to affected area twice daily. Patient taking differently: Apply 1 application to affected area every 12 hours as needed (neuropathy). As needed Taking Differently Yes blood sugar diagnostic (ONE TOUCH VERIO) test strip Test glucose 1x/daily, 250.00, insulin use: No Taking Yes Lancets (ONE TOUCH DELICA) lancets Test blood sugar(s) 1x/daily. Dx: 250.00. Insulin: No Patient taking differently: 1 Each as directed. Dx: 250.00 Taking Yes aspirin, enteric coated 81 mg EC tablet Take 81 mg by mouth once daily. Taking Yes acetaminophen (TYLENOL) 500 mg tablet Take 1,000 mg by mouth every 6 hours as needed. Taking Yes multivitamins(DAILY MULTIVITAMIN TAB) Take one(1) tablet daily. Taking Yes MEDICATION, NON-DATABASE Take by mouth. Vascularum per vascular surgeon. Unknown dose Patient not taking: Reported on 01/27/2024 Not Taking No medication comments found. ALLERGIES Allergen Reactions Lovenox [Enoxaparin* Rash, Itching Oxycontin [Oxycodon* Mental Status Change, Other: See Comments sx of a stroke -- disoriented Penicillins Rash, Other: See Comments epidermolysis Codeine GI Upset Objective PHYSICAL EXAM: General: alert and oriented, healthy appearance and obese. Pertinent negatives noted - not distressed. Skin: normal color, no rash or lesions. HEENT: EOM intact and pupils equal round. Pertinent negatives noted - no carotid bruit. Cardiovascular: regular rate and rhythm, normal S1 and S2, no rub, murmurs, or gallop. Respiratory: normal breath sounds, no wheezes or crackles. No chest wall deformity or tenderness. Abdomen: soft. Pertinent negatives noted - not tender. Extremities: Positive for vascular insufficiency. Pertinent negatives noted - no edema, no joint swelling and no ulcer. + compression. Neurological: normal cognition and motor skills. Positive for abnormal gait. Uses rollator. PAIN ASSESSMENT: Pain Pain Level: 2 Pain Location: Wrist-Left Description: Tingling, Aching, Throbbing Frequency: Intermittent Intervention/Comfort measure: Reposition, Other: See comment (wears brace only at nighttime) VITALS: BP 124/66 Pulse 60 Resp 18 Ht 5' 1 (1.55m) Wt 186 lb 9.6 oz (84.6kg) SpO2 97% BMI 35.28 kg/(m^2). Diagnostic tests reviewed for today's visit: Lab Value Units Date High Low HB No results within date range. HCT No results within date range. WBC No results within date range. PLT No results within date range. NA No results within date range. K No results within date range. GLUC No results within date range. BUN No results within date range. CREAT No results within date range. PTSEC No results within date range. INR No results within date range. APTT No results within date range. ALT No results within date range. AST No results within date range. TBILI No results within date range. TSH No results within date range. Lab Value Units Date High Low HCGQT No results within date range. UHCG No results within date range. HCG, BODY* No results within date range. Lab Value Units Date High Low ABORHD No results within date range. ABSCREEN No results within date range. Hemoglobin A1C (%) Date Value 09/22/2023 6.2 04/06/2023 5.9 08/13/2022 6.8 03/16/2022 7.3 09/16/2021 7.2 03/18/2021 7.1 11/26/2020 7.0 04/25/2020 6.8 09/28/2019 7.1 No results found for this or any previous visit (from the past 8760 hour(s)). No results found for this or any previous visit (from the past 58701 hour(s)). The Following Tests/Procedures Have Been Initiated: Orders Placed This Encounter diosmin complex no.1 (VASCULERA) 630 mg tab Sig: Take 1 tablet by mouth once daily. Instructions Given to Patient: Instructions located in the after visit summary. Patient given verbal and written preop instructions and voices comprehension and compliance. SIGNATURE: Samuel Harman PA-C PATIENT NAME: Blessing Jackson DATE: 01/27/2024 TIME: 11:15 AM PAGER/CONTACT #: [facility] Instructions* Patient Instructions* Samuel Harman PA-C - 01/27/2024 1:30 PM EST PATIENT PREOPERATIVE INSTRUCTIONS Grady Wells MD, PhD has scheduled you for your procedure at this surgery center: [facility]: [phone] --[id number] [place] [address]. Please read below carefully for your personalized instructions. Arrival Time for Surgery: - The Surgery Center or hospital where you are having surgery will call the afternoon before surgery (or Tuesday for Tuesday surgery) with a scheduled arrival time. - If you have not heard by 4 pm, please contact the surgery center above. Please be aware that emergency situations arise, which may delay or change your surgical time. If this happens, we will notify you as soon as possible and regret any inconvenience. Dietary Restrictions: - No solid food after midnight. - You may have 12 ounces of clear liquids (water, clear juices such as apple juice or gatorade, carbonated beverages, clear tea, black coffee, jello) until 2 hours before scheduled arrival at facility. - Do not drink any alcohol after midnight the night before your surgery. Medications: Unless instructed differently below, stay on all of your medications until your surgery. Approved medications to take the morning of surgery with a sip of water: levothyroxine sodium (LEVOTHYROXINE ORAL), amLODIPine (NORVASC) DO NOT TAKE YOUR HYDROCHLOROTHIAZIDE (HYDRODIURIL, ESIDRIX) THE MORNING OF SURGERY. DO NOT TAKE YOUR LISINOPRIL (ZESTRIL, PRINIVIL) THE MORNING OF SURGERY. DIABETES MEDICATION INSTRUCTIONS Oral/ Injectable Medication Instructions - Metformin - HOLD DAY OF SURGERY Laraglutide (Victoza/Saxenda) - please HOLD MORNING OF SURGERY If you start any new medications after today's visit, please contact the surgeon's office. Blood Thinning Medications: - STOP PENTOXIFYLLINE ER (TRENTAL) FOR 3 DAYS PRIOR TO SURGERY - Stop NSAIDS (Ibuprofen, Advil, Aleve, Motrin, Celebrex, Mobic, etc.) 7 days before surgery, as directed by your surgeon. - Stop Aspirin 7 days before surgery, as directed by your surgeon. - Stop Vitamin E, ALL multi-vitamins, herbals and dietary supplements 7 days before surgery. - You may take Tylenol (Acetaminophen) or any of your pain medications that do not contain aspirin or NSAIDS as needed. Important Reminders: - If you use CPAP/BIPAP, bring the machine with you to the surgery center. - If you are prescribed inhalers for breathing, continue using them. - Candy, mints, and tobacco products are NOT permitted the morning of surgery. - Hearing aids, dentures and glasses may be worn the morning of surgery. - NO jewelry, body piercings, makeup, hairpins or contacts are to be worn the day of surgery. If you develop symptoms such as a fever, cold, or flu, or have other changes to your health within TWO DAYS of scheduled surgery or the morning of surgery, please contact the surgery center above. Personal Belongings: -Please have photo ID and insurance cards. -If you do not have a copy of advance directives on file with us, please bring a copy with you on the day of surgery. - Leave ALL valuables and money at home or with family members. For Outpatient Procedures: - YOU MUST HAVE A RESPONSIBLE PAINTER STRUCTURAL STEEL TAKE YOU HOME. A MACHINE ADJUSTER OR STUDENT RECRUITER CANNOT BE MADE A RESPONSIBLE PAINTER STRUCTURAL STEEL. - We recommend that a responsible person stays with you overnight to take care of you. - You cannot stay in a hotel alone after outpatient surgery. You will not be permitted to have yoursurgery, if you do not have someone to take care of you. If you already have an Advance Directive, please fax a copy to [phone] or email to for it to be added to your chart. If you do not have an Advance Directive, you can find the appropriate form and more information at [email or web address]. We recommend that youcomplete the Advance Directive form found on the website and bring it with you the day of your surgery. It can be witnessed and scanned into your chart that day. Samuel Harman PA-C documented in this encounter[facility] Miscellaneous Notes* Telephone Encounter - Valerie Hesetr LPN - 01/03/2024 1:18 PM EST Patient has been identified by name and date of : No Patient phones for refill(s): Requested Prescriptions Pending Prescriptions Disp Refills simvastatin (ZOCOR) 20 mg tablet 90 tablet 3 Sig: Take 1 tablet by mouth daily at bedtime. Date of last office visit in primary care: 09/29/2023 Date of next office visit in primary care: 03/29/2024 Please advise. Thank you. Valerie eHster LPN. * Telephone Encounter - Radha Serrato - 01/03/2024 10:32 AM EST Patient has been identified by name and date of : Patient phones for refill(s): Requested Prescriptions Pending Prescriptions Disp Refills simvastatin (ZOCOR) 20 mg tablet 90 tablet 3 Sig: Take 1 tablet by mouth daily at bedtime. Date of last office visit in primary care: 09/29/2023 Date of next office visit in primary care: 03/29/2024 Please advise. Thank you. Radha Serrato. documented in this encounter[facility]01-17-[facility]24 History of Present illness Narrative* Reba Hsu RT(R) - 12/07/2023 1:45 PM EST Radiology Service Progress Note PATIENT NAME: Blessing Jackson DATE OF SERVICE: December 07, 2023 TIME: 1:58 PM PATIENT IDENTITY VERIFICATION COMPLETED USING TWO (2) IDENTIFIERS: Name and Date of confirmedby patient verbally. FALL SCREENING: Has the patient had 2 falls in the last year or 1 fall with injury or currently using an Ambulatory Assistive Device (Walker, Cane, Wheelchair, Crutches, etc.)? Yes, Patient High Riskfor Falls What interventions were put in place to prevent falls during this visit? Increased Observations by Caregivers PATIENT GENDER DATA: Female. status: : No status: NO. PATIENT RELEVANT IMPLANT DATA REVIEWED: Not Applicable RADIOLOGY DEPARTMENT: General X-ray: Exam(s) Completed: Upper Extremity X- Ray(s): Hand, left PERIPHERAL IV DATA: Not applicable SIGNED BY: RT Cherrie(Madelyn) December 07, 2023 1:58 PM documented in this encounterEast [facility]11-09-2023 History of Present illness Narrative* Greta Arreola APRN.WATCH CRYSTAL CUTTER - 09/29/2023 10:16 AM EST CC: Patient presents with: Recheck: 6 month HPI Blessing Jackson is a 82 year old female who presents today for routine follow up. HTN and HLD: Ms. Jackson indicates that she is feeling well and denies any symptoms referable to elevated blood pressure. Specifically denies headache, chest pain, palpitations, dyspnea, and peripheral edema. Patient denies any side effects of her medication(s) and is compliant with their regimen. She does not check BP's generally. Blessing does her own housework and stays active. She watches her diet for sodium, low fat and low cholesterol most of the time. Last 3 Encounter BP Readings: Date: BP: 09/29/2023 152/70 - JEFFERY BP 129/59 04/11/2023 136/72 10/28/2022 128/65 DIABETES MELLITUS: Ms. Jackson denies excessive thirst or increased frequency of urination, chest pain or dyspnea , numbness, tingling or pain in extremities, new or unusual visual symptoms, low sugar/hypoglycemic reactions, weight loss/gain, lightheadedness/dizziness, and bowel changes/loose stools. Follows a diabetic diet most of the time. She is compliant with medication(s) and is tolerating med(s) without any side effects. She reports checking her glucose on a infrequent to not at all basisschedule. Patient's last HgA1C was Hemoglobin A1C (%) Date Value 09/22/2023 6.2 04/06/2023 5.9 09/16/2021 7.2 03/18/2021 7.1 ) Last Ophthalmology exam was within the past 3 months Hypothyroidism: Takes medication as ordered. Denies abnormal changes in weight or energy. Right hand carpal tunnel surgery 5 years ago and has noticed similar symptoms to her left hand. Hasbeen using a brace at night which is improving the symptoms but would like to look into having surgery for the left wrist early next year. Symptoms are intermittent numbness and tingling to her left first 3 fingers worse at night. Denies injury, edema, redness, fever, or weakness. REVIEW OF SYSTEMS General: no fevers, no chills, no night sweats, no recurrent infections, no change in appetite, no change in energy, and no significant changes in weight Respiratory: no cough, no wheezing, no shortness of breath, no hemoptysis Cardiovascular: no chest pain, no chest pressure, no palpitations, and no swelling Endocrine: no fatigue, no polyuria, no polyphagia, and no polydipsia Neurologic: No headache, weakness, numbness, tingling, dizziness, memory loss, syncope. PAST MEDICAL HISTORY Diagnosis Date Cardiomegaly Cellulitis Essential hypertension, benign 1979 Generalized osteoarthrosis, unspecified site 1989 HX: breast cancer 2009 surgery at [facility] Lymphedema left leg Malignant neoplasm of upper-outer quadrant of female breast (HCC) 04/03/2009 Other and unspecified hyperlipidemia PVD (peripheral vascular disease) ([facility]) Special screening for malignant neoplasms, colon 12/12/2014 Type II or unspecified type diabetes mellitus without mention of complication, not stated as uncontrolled 1992 Unspecified hypothyroidism 1969 PAST SURGICAL HISTORY Procedure Laterality Date ARTHRP ACETBLR/PROX FEM PROSTC AGRFT/ALGRFT 2002 right ARTHRP ACETBLR/PROX FEM PROSTC AGRFT/ALGRFT 02/2012 left ARTHRP KNE CONDYLE&PLATU MEDIAL&LAT COMPARTMENTS 10/24/06 left BX BREAST PERC VACUUM/ROTN 3/25/9 Right COLONOSCOPY 2004 COLONOSCOPY FLX DX W/COLLJ SPEC WHEN PFRMD 12/12/14 Colonoscopy COLONOSCOPY FLX DX W/COLLJ SPEC WHEN PFRMD 01/03/2020 Colonoscopy DISKECTOMY, LUMBAR, SINGLE SP 10/03/2000 L4-5 with cages per pt report PAST SURGICAL HISTORY OF 03/03/09 right lumpectomy and sentinel node biopsy - Dr. Reynolds - [facility] PAST SURGICAL HISTORY OF Right 02/20/2013 Right TKA ALLERGIES Penicillins, Codeine, Lovenox [Enoxaparin Sodium], and Oxycontin [Oxycodone] MEDICATIONS hydroCHLOROthiazide 25 mg tablet Take 1 tablet by mouth once daily. gabapentin (NEURONTIN) 300 mg capsule Take 1 capsule by mouth once daily. BIOTIN ORAL Take 5,000 mcg by mouth. MEDICATION, NON-DATABASE Take by mouth. Vascularum per vascular surgeon. Unknown dose amLODIPine (NORVASC) 2.5 mg tablet Take 1 tablet by mouth twice daily. metFORMIN ER (GLUCOPHAGE XR) 500 mg 24 hr tablet Take 2 tablets by mouth once daily. Insulin [place], Disposable, (BD ULTRA-FINE MARCELO PEN NEEDLE) 32 gauge x 5/32 USE ONE NEEDLE FOR EACH DOSE ONCE DAILY fluticasone (FLONASE) 50 mcg/actuation nasal spray Use 2 Sprays in each nostril once daily. Rinse mouth after use. betamethasone dipropionate (DIPROSONE) 0.05 % cream Apply to rash on neck once or twice a day as needed. mupirocin (BACTROBAN) 2 % ointment Apply 1 application to affected area twice daily. (Patient taking differently: Apply 1 application to affected area two times a day. As needed) blood sugar diagnostic (ONE TOUCH VERIO) test strip Test glucose 1x/daily, 250.00, insulin use: No (Patient taking differently: Test glucose 1x/daily, 250.00, insulin use: No Takes as needed) Lancets (ONE TOUCH DELICA) lancets Test blood sugar(s) 1x/daily. Dx: 250.00. Insulin: No (Patient taking differently: Test blood sugar(s) 1x/daily. Dx: 250.00. Insulin: No Uses as needed) aspirin, enteric coated 81 mg EC tablet Take 81 mg by mouth once daily. acetaminophen (TYLENOL) 500 mg tablet Take 1,000 mg by mouth every 6 hours as needed. multivitamins(DAILY MULTIVITAMIN TAB) Take one(1) tablet daily. pentoxifylline ER (TRENTAL) 400 mg CR tablet Take 1 tablet by mouth three times a day. hydroCHLOROthiazide 25 mg tablet Take 1 tablet by mouth once daily. simvastatin (ZOCOR) 20 mg tablet Take 1 tablet by mouth daily at bedtime. atenolol (TENORMIN) 25 mg tablet Take 1 tablet by mouth once daily. lisinopril (ZESTRIL) 40 mg tablet Take 1 tablet by mouth once daily. levothyroxine (SYNTHROID) 100 mcg tablet Take 1 tablet by mouth once daily. liraglutide (VICTOZA) 0.6 mg/ 0.1 ml subcutaneous pen injector Inject 1.8 mg subcutaneously once daily. OTC PRODUCT Diet Tonic water 6-8oz daily to prevent leg cramps FAMILY HISTORY Problem Relation Age of Onset Diabetes Father Heart Mother congenital valve problem Diabetes Sister also has hx breast cancer Diabetes Sister Breast Cancer Sister sister is very private, pt not certain if it was cancer or not. Cancer Maternal Aunt uterine cancer Social History Tobacco Use Smoking status: Never Smokeless tobacco: Never Vaping Use Vaping Use: Never used Substance Use Topics Alcohol use: Not Currently Comment: Occasional Wine Drug use: Never PHYSICAL EXAM BP 129/59 Pulse (!) 49 Resp 16 Wt 88.9 kg (196 lb) SpO2 98% BMI 35.85 kg/m General Appearance: well appearing, in no acute distress, alert Pysch: mood and affect broad and appropriate Skin: Skin color, texture, turgor normal for age; Eyes: conjunctiva pink and moist, no icterus, sclera white, non-injected Lungs: Lungs clear to auscultation. No wheezing, rhonchi, rales. Heart: RRR without murmur, gallop, or rubs. No ectopy BUE Extremities: No deformities, edema, skin discoloration, clubbing or cyanosis. Good capillary refill. Pulses palpable strength normal. Health maintenance reviewed with patient: Hepatitis B Vaccine(1 of 3 - Risk 3-dose series) Never done RSV Vaccine(1 - 1-dose 60+ series) Never done Shingrix Vaccine(2 of 3) due on 10/01/2009 DTaP,Tdap,Td Vaccine(2 - Td or Tdap) due on 09/20/2022 Advance Directive Discussion Never done Depression Assessment due on 11/21/2022 HbA1C due on 03/22/2024 Diabetic Foot Exam due on 04/19/2024 Dilated Retinal Exam due on 09/16/2024 LDL Cholesterol due on 09/22/2024 Bone Density Screening Completed Influenza Vaccine Completed Covid-19 Vaccine Completed Pneumococcal Vaccine: 65+ Completed Urine Albumin:Creatinine Ratio Discontinued DATA REVIEWED: Most recent labs ASSESSMENT/PLAN: 1. Essential hypertension - ICD9: 401.9, ICD10: I10 (primary diagnosis) - Controlled - Continue current medications - Recommend home blood pressure monitoring, to bring results to next visit - Encouraged sodium restriction, DASH or Mediterranean diet - Recommend regular aerobic exercise - HYDROCHLOROTHIAZIDE 25 MG TABLET - ATENOLOL 25 MG TABLET 2. Type 2 diabetes mellitus with peripheral neuropathy (HCC) - ICD9: 250.60, 357.2, ICD10: E11.42 - Controlled - Continue current medications - Blood glucose monitoring on a once daily schedule - Counseled on healthy diet and regular exercise - Discussed need for and benefit of weight loss. BMI 35.85 kg/(m^2) - LIRAGLUTIDE 0.6 MG/0.1 ML (18 MG/3 ML) SUBCUTANEOUS PEN INJECTOR 3. Hypothyroidism, adult - ICD9: 244.9, ICD10: E03.9 - asymptomatic - Instructed patient on importance of taking on an empty stomach either first thing in the morning or at bedtime. - LEVOTHYROXINE 100 MCG TABLET 4. Hyperlipidemia, unspecified hyperlipidemia type - ICD9: 272.4, ICD10: E78.5 - Controlled - Continue current medications - Counseled on healthy diet and regular exercise - Discussed need for and benefit of weight loss. BMI 35.85 kg/(m^2) - SIMVASTATIN 20 MG TABLET 5. Carpal tunnel syndrome of left wrist - ICD9: 354.0, ICD10: G56.02 - patient wanting to see previous surgeon. Does not remember having EMG or xrays previously so would like to wit until seen by surgeon for further testing. - CONSULT TO ORTHOPAEDICS Prescription instructions reviewed with patient as applicable. Potential red flag symptoms discussed with the patient. Reviewed appropriate action plan to take if red flag symptoms occur. Patient agreeable to treatment plan. Greta Arreola APRN.CNP documented in this encounterEast [facility]10-23-2023 Miscellaneous Notes* Telephone Encounter - Mckayla Card RN - 09/12/2023 10:49 AM EDT Pt states she has not received this yet from her mail in pharmacy. Sent short term supply to local pharmacy. Let Pt know to call mail in pharmacy to check on medication. Patient has been identified by name and date of : Yes, Provider Dr Guerra Date 09/12/23 Time [id number]. Patient phones for refill(s): Requested Prescriptions Pending Prescriptions Disp Refills hydroCHLOROthiazide 25 mg tablet 30 tablet 0 Sig: Take 1 tablet by mouth once daily. Date of last office visit in primary care: 04/11/2023 Date of next office visit in primary care: 09/29/2023 Last 2 Encounter Wt Readings: Date: Wt: 04/11/2023 92.1 kg (203 lb) 10/28/2022 91.2 kg (201 lb) Previous labs/tests for medication: Blood Pressure: BUN (mg/dL) Date Value 03/18/2021 26 Sodium (mmol/L) Date Value 03/18/2021 139 Last 1 Encounter BP Readings: Date: BP: 04/11/2023 136/72 Please advise. Thank you. Mckayla Card RN. documented in this encounterEast [facility]10-20-2023 Instructions* Patient Instructions* Miranda De - 09/09/2023 1:13 PM EDT Diabetes Foot Care Instructions When you have diabetes, proper foot care is very important. Poor foot care may lead to amputation of a foot or leg. As a person with diabetes, you are more vulnerable to foot problems, because diabetes can damage your nerves and reduce blood flow to your feet. Here are some diabetes foot care tips to follow: Wash and Dry Your Feet Daily Use mild soaps Use warm water Pat your skin dry; do not rub. Thoroughly dry your feet. After washing, use lotion on your feet to prevent cracking. Do not put lotion between your toes. Examine Your Feet Each Day Check the tops and bottoms of your feet. Have someone else look at your feet if you cannot see them. Check for dry, cracked skin. Look for blisters, cuts, scratches, or other sores. Check for redness, increased warmth, or tenderness when touching any area of your feet. Check for ingrown toenails, corns, and calluses. If you get a blister or sore from your shoes, do not pop it. Apply a bandage and wear a differentpair of shoes. Take Care of Your Toenails Cut toenails after bathing, when they are soft. Cut toenails straight across and smooth with a nail file. Avoid cutting into the corners of toes. Do not cut cuticles. If you have neuropathy (or decreased sensation in your feet) a events director should always cut your toenails. Be Careful When Exercising Walk and exercise in comfortable shoes. Do not exercise when you have open sores on your feet. Protect Your Feet With Shoes and Socks Never go barefoot. Always protect your feet by wearing shoes or hard-soled slippers or footwear. Avoid shoes with high heels and pointed toes. Avoid shoes that expose your toes or heels (such as open-toed shoes or sandals). These types of shoes increase your risk for injury and potential infections. Try on new footwear with the type of socks you usually wear. Do not wear new shoes for more than an hour at a time. Change your socks daily. Look and feel inside your shoes before putting them on to make sure there are no foreign objects orrough areas. Avoid tight socks. Wear natural-fiber socks (cotton, wool, or a cotton-wool blend). Wear special shoes if your health care provider recommends them. Wear shoes/boots that will protect your feet from various weather conditions (cold, moisture, etc.). Make sure your shoes fit properly. If you have neuropathy (nerve damage), you may not notice that your shoes are too tight. Perform the footwear test described below. Footwear Test Use this simple test to see if your shoes fit correctly: Stand on a piece of paper. (Make sure you are standing and not sitting, because your foot changes shape when you stand.) Trace the outline of your foot. Trace the outline of your shoe. Compare the tracings: Is the shoe too narrow? Is your foot crammed into the shoe? The shoe should be at least 1/2 inch longer than your longest toe and as wide as your foot. Proper Shoe Choices The following types of shoes are best for people with diabetes Closed toes and heels Leather uppers without a seam inside At least 1/2 inch extra space at the end of your longest toe Inside of shoe should be soft with no rough areas Outer sole should be made of stiff material Shoes should be at least as wide as your feet Tips for Foot Care in Diabetes Don't wait to treat a minor foot problem if you have diabetes. Follow your health care provider's guidelines and first aid guidelines. Report foot injuries and infections to your health care provider immediately. Check water temperature with your elbow, not your foot. Do not use a heating pad on your feet. Do not cross your legs. Do not self-treat your corns, calluses, or other foot problems. Go to your health care provider or events director to treat these conditions. documented in this encounterEast [facility]10-20-2023 History of Present illness Narrative* Miranda De - 09/09/2023 1:12 PM EDT Last saw pcp: 04/11/23 Subjective: Patient presents to clinic c/o painful toenails. They state that the nails are especially painful with shoe gear and pressure. Patient states that nails 1-5 b/l are painful. Patient admits to being diabetic. No other pedal complaints at this time. Patient states no change in medications or medical history since last visit. Objective: Patient presents to clinic ambulating in dress ehoes Vasc: DP and PT pulses are palpable bilateral. CFT is less than 5 seconds bilateral. Skin temperature is warm to cool proximal to distal bilateral. There is moderate edema or varicosities noted. Neuro: Protective sensation is intact to the foot and toes when tested with the 5.07 SWM bilateral.Vibratory sensation is decreased at the hallux IPJ bilateral. The hallux is downgoing bilateral. Derm: Nails 1-5 b/l are painful, discolored-yellow, thick, crumbly, dystrophic and with subungal debris. Skin is of normal turgor, texture and hair growth is present bilateral. There are callus to right 5th toe. no ulcerations, scars, verruca or other lesions noted. Ortho: Muscle strength is 5/5 for all pedal groups tested. Ankle joint DF is full with the knee extended with no pain or crepitus noted. 1st MPJ ROM is decreased bilateral. Assessment: (E11.42) Type 2 diabetes mellitus with peripheral neuropathy (HCC) (primary encounter diagnosis) (B35.1) Onychomycosis (M79.674) Pain in toe of right foot (M79.675) Pain in toe of left foot Plan: Patient was seen and evaluated. Nails 1-5 bilateral were debrided in length and thickness. Callus reduced with dremmel Patient was instructed on the continued importance of diabetic foot care along with proper diet andkeeping their blood sugar under control to prevent complications. Patient is to RTC in 3-4 months. Miranda De DPM documented in this encounterEast [facility] Hospital10-16-2023 History of Present illness Narrative* Adrian Jeong, EPI-WATCH CRYSTAL CUTTER - 09/05/2023 2:30 PM EDT Blessing Jackson is a 82 y.o. female who was seen on 09/05/2023 for evaluation of: Lipodermatosclerosis Last seen 01/24/23 Interval History LE Symptoms: Left >> Right lower extremity swelling, discoloration, pain, and hardness. Improved since her last OV Feet to calves No cellulitis or skin breakdown since her last OV States that she tried to call Dr. Carlton's office to schedule an appt but they did not get the referral. Our nursing staff documented that they faxed the order to his office She feels that her legs are improving and does not see any reason to proceed with any type of intervention at this time. She will revisit getting a referral and test completed with worsening symptoms Duration of Lymphedema: Left age 17 Right 2006 Family hx of Lymphedema: N Recurrent nocturnal leg cramps which relieved by getting up and walking around the room History of cellulitis/infection of the lymphedematous limb: Y left lower extremity last May 2022 [reviewed photo]-treated with clindamycin. Non-toxic. Only other event 2016 History of dermatitis: Y BL LDS. CeraVe cream with SA History of ulcerations: YES-healed Vocation: retired Weight loss/gain: Stable Functional ambulator: N Walker or cane for assistance prn Ataxic from severe PN. Hx of DVT: N Hx of HF: N Potentially aggravating medications: Gabapentin [low dose] Amlodipine 5 mg dailiy Therapy: Pentoxifylline HCTZ Trial of low-dose pramipexole at dinner and bedtime but it made her diabetic neuropathy worse. She is not taking it 15-20 mmHg [OTC] very difficult to apply/remove [ must assist] Vasculera helps Diagnostic Studies: No vascular studies since last oV Labs: No new labs to review Past Medical History: Diagnosis Date Arthritis Carpal tunnel syndrome on right 02/22/2018 No surgery at this time. 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 Diabetes mellitus History of radiation therapy 2009 Right breast DCIS Hypertension Malignant neoplasm of female breast 2009 Right breast DCIS Preop cardiovascular exam Radiation therapy 03/2009 right breast RBBB (right bundle branch block) Past Surgical History: Procedure Laterality Date RELEASE CARPAL TUNNEL Right 04/2018 KNEE REPLACEMENT Right 02/2013 TOTAL KNEE ARTHROPLASTY 2013 bilateral BREAST LUMPECTOMY Right 03/03/2009 DCIS BX LYMPH NODE Right 02/2009 One reactive lymph node negative CORE BIOPSY OF THE BREAST Right 02/12/2009 DCIS / Atypical ductal hyperplasia and fibrocystic changes BACK SURGERY HIP REPLACEMENT 2002 2011 bilateral REMOVAL CATARACT (PEM) Bilateral 05/2018 Current Outpatient Medications Medication Sig Acetaminophen 500 MG Cap Take 2 tablets by mouth at bedtime as needed. amLODIPine 2.5 MG PO TABS Take 2 tablets by mouth daily. aspirin 81 MG PO TABS Take 1 tablet by mouth daily. atenolol 50 MG PO TABS Take 0.5 tablets by mouth daily. Dietary Management Product (Vasculera) tablet One daily gabapentin 300 MG Cap Take 1 capsule by mouth at bedtime. hydrochlorothiazide 50 MG PO TABS Take 0.5 tablets by mouth daily. levothyroxine 100 MCG PO TABS Take 1 tablet by mouth every morning before breakfast. Liraglutide (VICTOZA SC) Inject 1.8 mg under the skin daily. lisinopril 40 MG PO TABS Take 1 tablet by mouth daily. metformin 500 MG PO TABS Take 1 tablet by mouth 2 times daily. multivitamin PO TABS Take 1 tablet by mouth daily. pentoxifylline 400 MG Tab CR tablet ER Take 1 tablet by mouth 3 times daily with meals. simvastatin 20 MG PO TABS Take 1 tablet by mouth daily. Pramipexole Dihydrochloride 0.125 MG tablet Take one tab at dinner and bedtime Allergies Allergen Reactions Lovenox [Enoxaparin Sodium] Rash Oxycodone Discoloration Pcn [Penicillin G] Rash Social History Tobacco Use Smoking status: Never Smokeless tobacco: Never Substance Use Topics Alcohol use: No Comment: rare Drug use: No Her family history includes Breast Cancer in her paternal cousin; Breast Cancer (age of onset: 55) in her sister; Breast Cancer (age of onset: 62) in her sister; Lung Cancer in her paternal aunt; Other - Specify in her sister; Ovarian Cancer in her mother; Uterine Cancer in her maternal aunt. Please refer to the scanned Cardio history form dated today for the remainder of the 12-point ROS which I have reviewed and discussed with the patient. PHYSICAL EXAMINATION Vitals: 09/05/23 1444 BP: 140/60 Pulse: 68 Body mass index is 37.22 kg/m . Her physical examination on 09/05/2023 identifies her to be in no distress. Her HEENT examination is within normal limits and unremarkable. No sherrie-oral furrowing. No facial telangiectasias. Her neck is supple. She does not have an audible gallop but a grade 2/6 systolic murmur heard best at the aortic post murmur. Her abdominal examination reveals no AAA but impossible examination due to obesity with panniculus. Her extremities reveal normal [2+/2] peripheral pulses. Acrocyanosis: N BL. Livedo reticularis: N BL Digital vasospasm: N BL Peripheral edema-Lower: Y BL L>R Minimal left distal thigh Foot/toe swelling: Y BL. Stemmer's sign is positive on left/negative on right Hyperkeratosis/cutaneous fibrosis: Y BL [id number] Excessive local fat deposition: N Left toes are phenotypically Abnormal with exaggerated dorsal skin creases and squaring Lymphostatic verrucosis/nodules: N BL Elephantiasis: N BL Cellulitis: N BL Lymphorrhea: N BL Xeroderma: N BL Peau d' orange [dimpled or orange peel appearance]: N Varicose, reticular, or spider veins: Y BL Stasis hyperpigmentation: Y BL Stasis dermatitis: Y BL Atrophie cat: N BL Leg ulcerations: N BL Panniculitis/lipodermatosclerosis:Y BL [id number]-right. Tinea pedis: N Impression 1. Bilateral lower extremity lipodermatosclerosis-fortunately no overt active inflammation on today's examination 2. 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 3. Bilateral lower extremity stasis dermatitis/xeroderma-reasonably well controlled 4. Large pendulous abdominal panniculus- significant risk factor for phlebolymphedema due to associated chronic iliocaval compression 5. Class II obesity Body mass index is 37.22 kg/m . 6. Immobility with associated veno-muscular pump dysfunction 7. Left carotid bruit-asymptomatic Plan 1. continuous churn buttermaker pentoxifylline 400 mg with meals to reduce venous inflammation 2. As noted above, she is unable to self apply tight gradient compression stockings [nor is anyone available to assist]. Suggested trying a zippered variety and increase to 20-30 mm Hg if tolerated. 3. Try to increase activity/ambulation in order to activate calf (and thigh) muscle pumps. 4. She will see Dr. Gordy Carlton [facility] who can perform a reflux mapping study and ascertain if she is a candidate for any type of non-thermal great saphenous vein/tributary interventional therapy if she has worsening symptoms. Will order a Venous duplex ultrasound ordered in order to be obtained on day of consultation. She will call if she decide to proceed with with the referral 5. Elevate legs throughout the day 6. Skin care per your suggestions 7. We did discuss home PCD and in home trial to help with swelling. She would like to discuss this with her PCP and before proceeding. She will let us know 8. Avoid dose escalation of amlodipine and gabapentin if possible 9. Continue diosmiplex 630 mg once daily to reduce lympho-venous HTN/inflammation and increase vascular tone. 10. RTC 1 year or sooner if needed [facility] History of Present illness Narrative* Silvia Munguia - 09/05/2023 11:00 AM EDT Patient offered a medical maintainer sewer and waterworks for sensitive exam. Pt declined [facility] History of Present illness Narrative* Miranda De - 04/19/2023 1:43 PM EDT Last saw Dr. Guerra: 04/11/23 Subjective: Patient presents to clinic c/o painful toenails. They state that the nails are especially painful with shoe gear and pressure. Patient states that nails 1-5 b/l are painful. Patient admits to being diabetic. No other pedal complaints at this time. Patient states no change in medications or medical history since last visit. Objective: Patient presents to clinic ambulating in slip on Vasc: DP and PT pulses are faintly palpable bilateral. CFT is less than 5 seconds bilateral. Skin temperature is warm to cool proximal to distal bilateral. There is mild edema or varicosities noted. Neuro: Protective sensation is decreased to the foot and toes when tested with the 5.07 SWM bilateral. Vibratory sensation is absent at the hallux IPJ bilateral. The hallux is downgoing bilateral. Derm: Nails 1-5 b/l are painful, discolored-yellow, thick, crumbly, dystrophic and with subungal debris. Skin is of normal turgor, texture and hair growth is decreased bilateral. There are callus to right 5th toe. No ulcerations, scars, verruca or other lesions noted. Ortho: Muscle strength is 5/5 for all pedal groups tested. Ankle joint DF is decreased with the knee extended with no pain or crepitus noted. 1st MPJ ROM is decreased bilateral. Assessment: (E11.42) Type 2 diabetes mellitus with peripheral neuropathy (HCC) (primary encounter diagnosis) (B35.1) Onychomycosis (M79.674) Pain in toe of right foot (M79.675) Pain in toe of left foot (L84) Callus of foot (M20.41) Hammer toe of right foot Plan: Patient was seen and evaluated. Nails 1-5 bilateral were debrided in length and thickness. Small bleed to right hallux. Band aide applied. If patient develops any issues, she is to contact the office Callus reduced with dremmel to right 5th toe. Contineu with hammertoe pad Patient was instructed on the continued importance of diabetic foot care along with proper diet andkeeping their blood sugar under control to prevent complications. Patient is to RTC in 3-4 months. Miranda De DPM * Natasha Gunter RN - 04/19/2023 1:13 PM EDT Patient presents with: Left Foot - Established Patient, nail care Right Foot - Established Patient, nail care, Corns Pt presents to clinic for bilateral foot, nail care. Patient denies any pain today. Pt also has corn to right foot, fifth toe, stating she is out of the medicated pads for them at this time. No other concerns. [facility] Instructions* Patient Instructions* Miranda De - 04/19/2023 1:43 PM EDT Diabetes Foot Care Instructions When you have diabetes, proper foot care is very important. Poor foot care may lead to amputation of a foot or leg. As a person with diabetes, you are more vulnerable to foot problems, because diabetes can damage your nerves and reduce blood flow to your feet. Here are some diabetes foot care tips to follow: Wash and Dry Your Feet Daily Use mild soaps Use warm water Pat your skin dry; do not rub. Thoroughly dry your feet. After washing, use lotion on your feet to prevent cracking. Do not put lotion between your toes. Examine Your Feet Each Day Check the tops and bottoms of your feet. Have someone else look at your feet if you cannot see them. Check for dry, cracked skin. Look for blisters, cuts, scratches, or other sores. Check for redness, increased warmth, or tenderness when touching any area of your feet. Check for ingrown toenails, corns, and calluses. If you get a blister or sore from your shoes, do not pop it. Apply a bandage and wear a differentpair of shoes. Take Care of Your Toenails Cut toenails after bathing, when they are soft. Cut toenails straight across and smooth with a nail file. Avoid cutting into the corners of toes. Do not cut cuticles. If you have neuropathy (or decreased sensation in your feet) a events director should always cut your toenails. Be Careful When Exercising Walk and exercise in comfortable shoes. Do not exercise when you have open sores on your feet. Protect Your Feet With Shoes and Socks Never go barefoot. Always protect your feet by wearing shoes or hard-soled slippers or footwear. Avoid shoes with high heels and pointed toes. Avoid shoes that expose your toes or heels (such as open-toed shoes or sandals). These types of shoes increase your risk for injury and potential infections. Try on new footwear with the type of socks you usually wear. Do not wear new shoes for more than an hour at a time. Change your socks daily. Look and feel inside your shoes before putting them on to make sure there are no foreign objects orrough areas. Avoid tight socks. Wear natural-fiber socks (cotton, wool, or a cotton-wool blend). Wear special shoes if your health care provider recommends them. Wear shoes/boots that will protect your feet from various weather conditions (cold, moisture, etc.). Make sure your shoes fit properly. If you have neuropathy (nerve damage), you may not notice that your shoes are too tight. Perform the footwear test described below. Footwear Test Use this simple test to see if your shoes fit correctly: Stand on a piece of paper. (Make sure you are standing and not sitting, because your foot changes shape when you stand.) Trace the outline of your foot. Trace the outline of your shoe. Compare the tracings: Is the shoe too narrow? Is your foot crammed into the shoe? The shoe should be at least 1/2 inch longer than your longest toe and as wide as your foot. Proper Shoe Choices The following types of shoes are best for people with diabetes Closed toes and heels Leather uppers without a seam inside At least 1/2 inch extra space at the end of your longest toe Inside of shoe should be soft with no rough areas Outer sole should be made of stiff material Shoes should be at least as wide as your feet Tips for Foot Care in Diabetes Don't wait to treat a minor foot problem if you have diabetes. Follow your health care provider's guidelines and first aid guidelines. Report foot injuries and infections to your health care provider immediately. Check water temperature with your elbow, not your foot. Do not use a heating pad on your feet. Do not cross your legs. Do not self-treat your corns, calluses, or other foot problems. Go to your health care provider or events director to treat these conditions. documented in [facility] encounter[facility]04-14-[facility]23 Miscellaneous Notes* Telephone Encounter - Sean Pang Ma - 03/04/2023 4:22 PM EDT Mailed as requested. * Telephone Encounter - Tomeka Santiago RN - 03/03/2023 10:04 AM EDT Patient reports her handicap junito will in March. Asking if pcp would write a new one and mail to her via [facility]Place. Address verified. documented in this encounterEast [facility]03-06-[facility] History of Present illness Narrative* Aubrey Kelley, - 01/24/2023 11:00 AM EST Blessing Jackson is a 82 y.o. female who was seen in consultation at [facility] per your request on 01/24/2023 for evaluation of: Lipodermatosclerosis CC: LE Symptoms: Left >> Right lower extremity swelling, discoloration, pain, and hardness. Feet to calves Duration of Lymphedema: Left age 17 Right 2006 Family hx of Lymphedema: N Recurrent nocturnal leg cramps which relieved by getting up and walking around the room History of cellulitis/infection of the lymphedematous limb: YES left lower extremity last May 2022[reviewed photo]-treated with clindamycin. Non-toxic. Only other event 2016 History of dermatitis: YES BL LDS. CeraVe cream with SA History of ulcerations: YES-healed Vocation: retired Weight loss/gain: Stable Functional ambulator: N Walker or cane for assistance prn Ataxic from severe PN. Hx of DVT: N Hx of HF: N Potentially aggravating medications: Gabapentin [low dose] Amlodipine 5 mg dailiy Therapy: Pentoxifylline + HCSE HCTZ 15-20 mmHg [OTC] very difficult to apply/remove [ must assist] Diagnostic Studies: No recent vascular studies to review Labs: 03/16/2022 Ref Range & Units 10 mo ago TSH 0.270 - 4.200 mIU/L 2.860 Past Medical History: Diagnosis Date Arthritis Carpal tunnel syndrome on right 02/22/2018 Diabetes mellitus History of radiation therapy 2008 Hypertension Malignant neoplasm of female breast 2009 Right breast DCIS Radiation therapy 03/2009 right breast RBBB (right bundle branch block) Past Surgical History: Procedure Laterality Date RELEASE CARPAL TUNNEL Right 04/2018 KNEE REPLACEMENT Right 02/2013 TOTAL KNEE ARTHROPLASTY 2013 bilateral BREAST LUMPECTOMY Right 03/03/2009 DCIS BX LYMPH NODE Right 02/2009 One reactive lymph node negative CORE BIOPSY OF THE BREAST Right 02/12/2009 DCIS / Atypical ductal hyperplasia and fibrocystic changes BACK SURGERY HIP REPLACEMENT 2002 2011 bilateral REMOVAL CATARACT (PEM) Bilateral 05/2018 Current Outpatient Medications Medication Sig Acetaminophen 500 MG Cap Take 1,000 mg by mouth at bedtime as needed. amLODIPine 2.5 MG PO TABS take 5 mg by mouth daily. aspirin 81 MG PO TABS take 81 mg by mouth daily. atenolol 50 MG PO TABS take 25 mg by mouth daily. gabapentin 300 MG Cap take 300 mg by mouth at bedtime. hydrochlorothiazide 50 MG PO TABS take 25 mg by mouth daily. IBUPROFEN IB PO take 1-2 tablets by mouth as needed.. Reported on 03/01/2017 levothyroxine 100 MCG PO TABS take 1 Tab by mouth Every morning (before breakfast). Liraglutide (VICTOZA SC) Inject 1.8 mg under the skin daily. lisinopril 40 MG PO TABS take 1 Tab by mouth Daily. metformin 500 MG PO TABS take 1 Tab by mouth 2 times daily. multivitamin PO TABS take 1 Tab by mouth Daily. pentoxifylline 400 MG Tab CR tablet ER Take 400 mg by mouth 3 times daily with meals. simvastatin 20 MG PO TABS take 1 Tab by mouth Daily. Allergies Allergen Reactions Lovenox [Enoxaparin Sodium] Rash Oxycodone Discoloration Pcn [Penicillin G] Rash Social History Tobacco Use Smoking status: Never Smokeless tobacco: Never Substance Use Topics Alcohol use: No Comment: rare Drug use: No Her family history includes Breast Cancer in her paternal cousin; Breast Cancer (age of onset: 55) in her sister; Breast Cancer (age of onset: 62) in her sister; Lung Cancer in her paternal aunt; Other - Specify in her sister; Ovarian Cancer in her mother; Uterine Cancer in her maternal aunt. Please refer to the scanned Cardio history form dated today for the remainder of the 12-point ROS which I have reviewed and discussed with the patient. PHYSICAL EXAMINATION Vitals: 01/24/23 1102 BP: 148/72 Pulse: 78 Body mass index is 36.6 kg/m . Her physical examination on 01/24/2023 identifies her to be in no distress. Her HEENT examination is within normal limits and unremarkable. No sherrie-oral furrowing. No facial telangiectasias. Her neck is supple, and there is a left carotid bruit. Her lungs are clear. No pleural friction rub. Her cardiac examination reveals normal heart sounds. Her apex impulse is not palpable. There is no right ventricular lift, and her venous pressure is normal. She does not have an audible gallop but agrade 2/6 systolic murmur heard best at the aortic post murmur. Her abdominal examination reveals no AAA but impossible examination due to obesity with panniculus. Her extremities reveal normal [2+/2] peripheral pulses. Acrocyanosis: N BL. Livedo reticularis: N BL Digital vasospasm: N BL Peripheral edema-Lower: Y BL L>R minimally pitting/firm Minimal left distal thigh See photos below Foot/toe swelling: Y BL. Stemmer's sign is positive on left/negative on right Hyperkeratosis/cutaneous fibrosis: Y BL [id number] Excessive local fat deposition: N Left toes are phenotypically ABnormal with exaggerated dorsal skin creases and squaring Lymphostatic verrucosis/nodules: N BL Elephantiasis: N BL Cellulitis: N BL Lymphorrhea: N BL Xeroderma: N BL Peau d' orange [dimpled or orange peel appearance]: N Varicose, reticular, or spider veins: Y BL Stasis hyperpigmentation: Y BL Stasis dermatitis: Y BL Atrophie cat: N BL Leg ulcerations: N BL Panniculitis/lipodermatosclerosis:Y BL [id number]-right Tinea pedis: N IMPRESSION: 1. Bilateral lower extremity lipodermatosclerosis-fortunately no overt active inflammation on today's examination 2. 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 Doubtful aforementioned medications are significant due to low dosage 3. Bilateral lower extremity stasis dermatitis/xeroderma-reasonably well controlled 4. Large pendulous abdominal panniculus- significant risk factor for phlebolymphedema due to associated chronic iliocaval compression 5. Class II obesity Body mass index is 36.6 kg/m . 6. Immobility with associated veno-muscular pump dysfunction 7. Probable restless leg syndrome 8. Left carotid bruit-asymptomatic PLAN: 1. longterm pentoxifylline 400 mg with meals to reduce venous inflammation and HCSE. However utilize 2 week trial of diosmiplex 630 mg once daily to reduce lympho-venous HTN/inflammation and increase vascular tone. If helpful, this will allow her to discontinue, HCSE 2. As noted above, she is unable to self apply tight gradient compression stockings [nor is anyone available to assist]. Suggested trying a zippered variety and increase to 20-30 mm Hg if tolerated. 3. Try to increase activity/ambulation in order to activate calf (and thigh) muscle pumps. 4. I have taken the liberty of referring her to my colleague at [facility] Dr. Gordy Carlton who can perform a reflux mapping study and ascertain if she is a candidate for any type of non-thermal great saphenous vein/tributary interventional therapy. Venous duplex ultrasound ordered in order to be obtained on day of consultation 5. Carotid duplex ultrasound 6. Skin care per your suggestions 7. Trial of low-dose pramipexole at dinner and bedtime 8. Avoid dose escalation of amlodipine and gabapentin if possible 9. Return to clinic 6 months * Pat Hudson LPN - 01/24/2023 11:[address] Kelley's written order # [id number], Blessing Jackson received 15 day samples of Vasculera 630mg tablets (1 boxes of 15 count each). Blessing Jackson was instructed to take One (1) tablet dailyfor 15 days. Blessing Jackson also received a copy of Dr. Kelley written order. Blessing Vora Cristianyvonne signed a copy of the written order to be scanned to the chart. Blessing Jackson verbally acknowledges the instructions and denies any Questions. Lot #: [id number] Exp: 07/2025 documented [facility]23 Instructions* Patient Instructions* Aubrey Kelley DO - 01/24/2023 11:00 AM EST 15-20 mmHg zippered compression stockings Please notify Dr Kelley in 2 weeks regarding response to trial of Vasculera. Any improvement in leg pain and/or swelling? Any improvement with Pramipexole? documented in this encounter[facility] History of Present illness Narrative* Miranda Kenisha - 12/03/2022 3:23 PM EST Last saw Dr. Guerra: 11/17/22 Subjective: Patient presents to clinic c/o painful toenails. They state that the nails are especially painful with shoe gear and pressure. Patient states that nails b/l hallux are painful. Patient admits to being diabetic. Patient does complain of swelling in legs. [facility]. No other pedal complaints at this time. Patient states no change in medications or medical history since last visit. Objective: Patient presents to clinic ambulating in dress shoes Vasc: DP and PT pulses are palpable bilateral. CFT is less than 5 seconds bilateral. Skin temperature is warm to cool proximal to distal bilateral. There is mild edema or varicosities noted. Neuro: Protective sensation is intact to the foot and toes when tested with the 5.07 SWM bilateral.Vibratory sensation is decreased at the hallux IPJ bilateral. The hallux is downgoing bilateral. Derm: Nails 1-5 b/l are painful, discolored-yellow, thick, crumbly, dystrophic and with subungal debris. Skin is of normal turgor, texture and hair growth is present bilateral. There are callus to right 5th toe. no ulcerations, scars, verruca or other lesions noted. Ortho: Muscle strength is 5/5 for all pedal groups tested. Ankle joint DF is decreased with the knee extended with no pain or crepitus noted. 1st MPJ ROM is decreased bilateral. Assessment: (E11.42) Type 2 diabetes mellitus with peripheral neuropathy (HCC) (primary encounter diagnosis) (B35.1) Onychomycosis (M79.674) Pain in toe of right foot (M79.675) Pain in toe of left foot Venous insufficiency callus Plan: Patient was seen and evaluated. Nails 1-5 bilateral were debrided in length and thickness. Patient tends to get ingrown to b/l hallux. Could consider removal if pain were to become severe Continue with compression for lower extremity edema. Await vascular medicine recommendations Callus reduced with dremmel. Patient was instructed on the continued importance of diabetic foot care along with proper diet and keeping their blood sugar under control to prevent complications. Patient is to RTC in 3-4 months. Miranda De DPM * Dori Schmitz LPN - 12/03/2022 2:57 PM EST Patient presents with: Left Foot - Established Patient, Follow Up, Diabetic Foot Care Right Foot - Established Patient, Follow Up, Diabetic Foot Care Dori Schmitz LPN documented in this encounterEast [facility]01-13-[facility]23 Instructions* Patient Instructions* Miranda De - 12/03/2022 3:23 PM EST Diabetes Foot Care Instructions When you have diabetes, proper foot care is very important. Poor foot care may lead to amputation of a foot or leg. As a person with diabetes, you are more vulnerable to foot problems, because diabetes can damage your nerves and reduce blood flow to your feet. Here are some diabetes foot care tips to follow: Wash and Dry Your Feet Daily Use mild soaps Use warm water Pat your skin dry; do not rub. Thoroughly dry your feet. After washing, use lotion on your feet to prevent cracking. Do not put lotion between your toes. Examine Your Feet Each Day Check the tops and bottoms of your feet. Have someone else look at your feet if you cannot see them. Check for dry, cracked skin. Look for blisters, cuts, scratches, or other sores. Check for redness, increased warmth, or tenderness when touching any area of your feet. Check for ingrown toenails, corns, and calluses. If you get a blister or sore from your shoes, do not pop it. Apply a bandage and wear a differentpair of shoes. Take Care of Your Toenails Cut toenails after bathing, when they are soft. Cut toenails straight across and smooth with a nail file. Avoid cutting into the corners of toes. Do not cut cuticles. If you have neuropathy (or decreased sensation in your feet) a events director should always cut your toenails. Be Careful When Exercising Walk and exercise in comfortable shoes. Do not exercise when you have open sores on your feet. Protect Your Feet With Shoes and Socks Never go barefoot. Always protect your feet by wearing shoes or hard-soled slippers or footwear. Avoid shoes with high heels and pointed toes. Avoid shoes that expose your toes or heels (such as open-toed shoes or sandals). These types of shoes increase your risk for injury and potential infections. Try on new footwear with the type of socks you usually wear. Do not wear new shoes for more than an hour at a time. Change your socks daily. Look and feel inside your shoes before putting them on to make sure there are no foreign objects orrough areas. Avoid tight socks. Wear natural-fiber socks (cotton, wool, or a cotton-wool blend). Wear special shoes if your health care provider recommends them. Wear shoes/boots that will protect your feet from various weather conditions (cold, moisture, etc.). Make sure your shoes fit properly. If you have neuropathy (nerve damage), you may not notice that your shoes are too tight. Perform the footwear test described below. Footwear Test Use this simple test to see if your shoes fit correctly: Stand on a piece of paper. (Make sure you are standing and not sitting, because your foot changes shape when you stand.) Trace the outline of your foot. Trace the outline of your shoe. Compare the tracings: Is the shoe too narrow? Is your foot crammed into the shoe? The shoe should be at least 1/2 inch longer than your longest toe and as wide as your foot. Proper Shoe Choices The following types of shoes are best for people with diabetes Closed toes and heels Leather uppers without a seam inside At least 1/2 inch extra space at the end of your longest toe Inside of shoe should be soft with no rough areas Outer sole should be made of stiff material Shoes should be at least as wide as your feet Tips for Foot Care in Diabetes Don't wait to treat a minor foot problem if you have diabetes. Follow your health care provider's guidelines and first aid guidelines. Report foot injuries and infections to your health care provider immediately. Check water temperature with your elbow, not your foot. Do not use a heating pad on your feet. Do not cross your legs. Do not self-treat your corns, calluses, or other foot problems. Go to your health care provider or events director to treat these conditions. documented in [facility] encounter[facility] Miscellaneous Notes* Telephone Encounter - Laura Victoria LPN - 11/30/2022 3:16 PM EST Left a detailed message for pt with information listed below. Laura Victoria LPN * Telephone Encounter - Greta Arreola APRN.CNP - 11/29/2022 6:54 PM EST Fasting lab orders placed. Meds refilled. Please let patient know. Thank you Greta Arreola APRN.CNP * Telephone Encounter - Laura Victoria LPN - 11/29/2022 2:03 PM EST Pt asked if they are due for labs and if so when and do they need to fast. Please advise pt. Patient has been identified by name and date of : Yes, Provider Dr. Guerra Date 11/29/22 Time 2:06 pm Patient phones for refill(s): Requested Prescriptions Pending Prescriptions Disp Refills lisinopril (ZESTRIL, PRINIVIL) 40 mg tablet 90 tablet 3 Sig: Take 1 tablet by mouth once daily. levothyroxine (SYNTHROID) 100 mcg tablet 90 tablet 3 Sig: Take 1 tablet by mouth once daily. hydroCHLOROthiazide (HYDRODIURIL, ESIDRIX) 25 mg tablet 90 tablet 3 Sig: Take 1 tablet by mouth once daily. Date of last office visit in primary care: 10/28/22 next apt 04/11/22 Last 2 Encounter Wt Readings: Date: Wt: 10/28/2022 91.2 kg (201 lb) 09/29/2022 95.3 kg (210 lb) Previous labs/tests for medication: Thyroid: TSH Date Value 03/16/2022 2.860 mIU/L 03/18/2021 3.800 uU/mL Blood Pressure: BUN (mg/dL) Date Value 03/18/2021 26 Sodium (mmol/L) Date Value 03/18/2021 139 Last 1 Encounter BP Readings: Date: BP: 10/28/2022 128/65 Please advise. Thank you. Laura Victoria LPN documented in this encounterEast [facility]01-06-2023 Miscellaneous Notes* Telephone Encounter - Emilie Hunt RN - 11/26/2022 1:58 PM EST Patient will be in office around 3 or before. * Telephone Encounter - Emilie Hunt RN - 11/26/2022 11:29 AM EST Left pt VM to ask if she can come in early, any time between 1 pm - 3 pm for her appointment on 12/03/21. Office will need to know time patient is planning on coming in. documented in this encounterEast [facility]12-[facility]22 History of Present illness Narrative* Jeana Guerra MD - 10/28/2022 12:15 PM EST Reason for Visit Patient presents with: Recheck: 1 month elevated BP Blessing Jackson is a 81 year old female who presents here today for Above Complaints.. Health Maintenance SHINGRIX VACCINE(2 of 3) ADVANCE DIRECTIVE DISCUSSION LDL CHOLESTEROL COVID-19 VACCINE(5 - Booster for Moderna series) DTAP,TDAP,TD(2 - Td or Tdap) HPI HTN: Compliant with medications. Denies any chest pain, palpitations, or edema. No SOB. Doesn't check BP at home generally. Careful with diet to avoid salt, trying to eat more fruits and vegetables, exercises regularly. Last visit her blood pressure was on the higher side, she was tense and upset. She has lost some weight on the victoza. She does maintain a balanced diet on the the medication though. No problem-specific Assessment & Plan notes found for this encounter. PAST MEDICAL HISTORY Diagnosis Date Cardiomegaly Cellulitis Essential hypertension, benign 1979 Generalized osteoarthrosis, unspecified site 1989 HX: breast cancer 2009 surgery at [facility] Lymphedema left leg Malignant neoplasm of upper-outer quadrant of female breast (HCC) 04/03/2009 Other and unspecified hyperlipidemia PVD (peripheral vascular disease) (HCC) Special screening for malignant neoplasms, colon 12/12/2014 Type II or unspecified type diabetes mellitus without mention of complication, not stated as uncontrolled 1992 Unspecified hypothyroidism 1970 PAST SURGICAL HISTORY Procedure Laterality Date ARTHRP ACETBLR/PROX FEM PROSTC AGRFT/ALGRFT 2002 right ARTHRP ACETBLR/PROX FEM PROSTC AGRFT/ALGRFT 02/2012 left ARTHRP KNE CONDYLE&PLATU MEDIAL&LAT COMPARTMENTS 10/24/06 left BX BREAST PERC VACUUM/ROTN Right COLONOSCOPY 2004 COLONOSCOPY FLX DX W/COLLJ SPEC WHEN PFRMD 12/12/14 Colonoscopy COLONOSCOPY FLX DX W/COLLJ SPEC WHEN PFRMD 01/03/2020 Colonoscopy DISKECTOMY, LUMBAR, SINGLE SP 10/03/2000 L4-5 with cages per pt report PAST SURGICAL HISTORY OF 03/03/09 right lumpectomy and sentinel node biopsy - Dr. Reynolds - [facility] PAST SURGICAL HISTORY OF Right 02/20/2013 Right TKA FAMILY HISTORY Problem Relation Age of Onset Diabetes Father Heart Mother congenital valve problem Diabetes Sister also has hx breast cancer Diabetes Sister Breast Cancer Sister sister is very private, pt not certain if it was cancer or not. Cancer Maternal Aunt uterine cancer Social History Tobacco Use Smoking status: Never Smokeless tobacco: Never Substance Use Topics Alcohol use: Yes Comment: Occasional Wine Drug use: No Past medical history, appointments, medications, allergies reviewed. Pertinent Lab/Diagnostic Studies are reviewed and discussed today Current Outpatient Medications: liraglutide (VICTOZA) 0.6 mg/ 0.1 ml subcutaneous pen injector gabapentin (NEURONTIN) 300 mg capsule metFORMIN ER (GLUCOPHAGE XR) 500 mg 24 hr tablet amLODIPine (NORVASC) 2.5 mg tablet Insulin Santa Ysabel, Disposable, (BD ULTRA-FINE MARCELO PEN NEEDLE) 32 gauge x /32 lisinopril (ZESTRIL, PRINIVIL) 40 mg tablet levothyroxine (SYNTHROID) 100 mcg tablet hydroCHLOROthiazide (HYDRODIURIL, ESIDRIX) 25 mg tablet pentoxifylline ER (TRENTAL) 400 mg CR tablet betamethasone dipropionate (DIPROSONE) 0.05 % cream mupirocin (BACTROBAN) 2 % ointment blood sugar diagnostic (ONE TOUCH VERIO) test strip Lancets (ONE TOUCH DELICA) lancets aspirin, enteric coated 81 mg EC tablet acetaminophen (TYLENOL) 500 mg tablet OTC PRODUCT multivitamins(DAILY MULTIVITAMIN TAB) simvastatin (ZOCOR) 20 mg tablet fluticasone (FLONASE) 50 mcg/actuation nasal spray atenolol (TENORMIN) 25 mg tablet Review of Systems CONSTITUTIONAL: No fevers, chills night sweats, unintended weight loss CARDIOVASCULAR: No chest pain, dyspnea, palpitations, orthopnea, PND, ankle edema. PULM: No dyspnea, unexplained cough. GI: No dysphagia/odynophagia, problematic reflux, constipation, diarrhea, changes in stool habits, hematochezia, melena. : No new urinary complaints, including dysuria, gross hematuria or pyuria. NEURO: No new balance problems, peripheral weakness/paresthesias or numbness of concern. Physical Exam BP 128/65 Pulse 61 Resp 16 Wt 91.2 kg (201 lb) SpO2 98% BMI 36.76 kg/m General appearance: Well appearing, alert, in no acute distress, well nourished. Skin: Skin color, texture, turgor normal, no suspicious rashes or lesions Head: Normocephalic, no masses, lesions, tenderness or abnormalities Eyes: Anicteric sclera. Pupils are equally round and reactive to light. Extraocular movements are intact. Lungs: Lungs clear to auscultation. No wheezing, rhonchi, rales Heart: RRR without murmur, gallop, or rubs. Extremities: No deformities, edema, skin discoloration, clubbing or cyanosis. Good capillary refill. ASSESSMENT/PLAN: 1. Hyperlipidemia, unspecified hyperlipidemia type - ICD9: 272.4, ICD10: E78.5 - good control - Continue current medication. - SIMVASTATIN 20 MG TABLET 2. Essential hypertension - ICD9: 401.9, ICD10: I10 - good control - Recommended regular aerobic exercise. - Recommend home blood pressure monitoring, to bring results in on next visit - Goal of BP <130/80 - ATENOLOL 25 MG TABLET Jeana Guerra MD documented in this encounterCleveland [id number] Miscellaneous Notes* Telephone Encounter - Valerie Teran LPN - 10/22/2022 9:22 AM EST Send to local pharmacy. Patient has been identified by name and date of : Yes Patient phones for refill(s): Requested Prescriptions Pending Prescriptions Disp Refills simvastatin (ZOCOR) 20 mg tablet 90 tablet 3 Sig: Take 1 tablet by mouth daily at bedtime. Date of last office visit in primary care: 09/29/2022 Last 2 Encounter Wt Readings: Date: Wt: 09/29/2022 95.3 kg (210 lb) 08/16/2022 95.3 kg (210 lb) Previous labs/tests for medication: Cholesterol: HDL Cholesterol (mg/dL) Date Value 03/18/2021 53 LDL Cholesterol (mg/dL) Date Value 03/18/2021 61 ALT (U/L) Date Value 03/18/2021 12 Non HDL Cholesterol (mg/dL) Date Value 03/18/2021 102 Please advise. Thank you. Valerie Teran LPN * Telephone Encounter - Rhoda Shearer - 10/21/2022 10:50 AM EST Patient has been identified by name and date of : Yes Last office visit in this department: 09/29/2022 Has upcoming appt, needs sent to local [facility] as she is getting low. RX INSTRUCTIONS: Patient aware RX will be sent to pharmacy. No need to notify patient. Patient phones requesting refills as follows: Requested Prescriptions Pending Prescriptions Disp Refills simvastatin (ZOCOR) 20 mg tablet 90 tablet 3 Sig: Take 1 tablet by mouth daily at bedtime. Please review and advise. Rhoda Shearer documented in this encounterEast [facility]11-11-2022 Miscellaneous Notes* Telephone Encounter - SALIMA Lopez - 10/01/2022 11:17 AM EST Spoke to pt. She stated that Dr. Guerra is receiving a message from another doctor regarding a procedure. She wishes to hold off on making appointment with Dr. Arias until everything gets reviewed. 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 Pt declined documented in [facility] encounter[facility]08-09-2022 Miscellaneous Notes* Telephone Encounter - Michelle Medeiros LPN - 06/29/2022 3:10 PM EDT Last seen pcp 03/22/22. Next appt with pcp * Telephone Encounter - Stacey Ramos - 06/29/2022 12:48 PM EDT Please contact patient when this has been sent to pharmacy. Contact [phone] Stacey Julien Pss documented in this encounterEast [facility] Hospital05-18-2022 Miscellaneous Notes* Telephone Encounter - Praveena Reyes Ma - 04/07/2022 12:54 PM EDT Patient notified. * Telephone Encounter - Greta Arreola APRN.CNP - 04/07/2022 12:29 PM EDT Please let patient know that I have sent in the prescription as requested to [facility] in [place]. Thank you Greta Arreola APRN.CNP * Telephone Encounter - Mckayla Card RN - 04/07/2022 12:13 PM EDT Pt called and is notified of providersmessage. Pt reports the antibiotic is Cipro. She states she and her go up to their house in the [facility] for the summer and it is in a very remote area far from any medical treatment. She reports she has been treating a chronic infection to her anthony,but it is under control right now. She states that Dr Guerra will refill it for her prohylactically to take with her. She states they aren't going until mid April, so she isn't in a hurry. Mckayla Card RN * Telephone Encounter - Sean Pang Ma - 04/07/2022 12:01 PM EDT Left message to call office. 04/07/2022 12:01 PM * Telephone Encounter - Greta Arreola APRN.CNP - 04/07/2022 7:51 AM EDT BP is at goal. Please clarify what antibiotic she is referring to and what is the need for this antibiotic. Thank you Greta Arreola APRN.CNP * Telephone Encounter - Freida Healy LPN - 04/06/2022 1:25 PM EDT Manual Readin/74 Pulse: 68 Reason for blood pressure check - Last BP elevated Patient is: Taking medication as prescribed Yes Took medication today Yes If no, date medication last taken N/A Experiencing side effects No BP was elevated at last appt 03/22/22. No BP medication changes were made at that time. Taking all medications as prescribed. Denies any chest pain, shortness of breath, dizziness, or headaches. Daily caffeine use. No personal history of tobacco use; no current exposure. Alert and oriented. Pt has been identified by name and birthdate: Yes Allergies reviewed: Yes Latex allergy: no. Medication - prescribed and OTC reviewed and updated: Yes Do you need any prescription refills prior to your next visit: Yes Health Maintenance: Reviewed and not up to date and provider notified Patient advised to continue with current medications and would be contacted if any further instructions after review by PCP. Patient requesting ATB that she routinely takes with her when traveling to the [facility]. Please send to mail order pharmacy. Freida Healy LPN documented in this encounterEast [facility] Hospital05-17-2022 History of Present illness Narrative* Freida Healy LPN - 04/06/2022 1:20 PM EDT Manual Readin/74 Pulse: 68 Reason for blood pressure check - Last BP elevated Patient is: Taking medication as prescribed Yes Took medication today Yes If no, date medication last taken N/A Experiencing side effects No BP was elevated at last appt 03/22/22. No BP medication changes were made at that time. Taking all medications as prescribed. Denies any chest pain, shortness of breath, dizziness, or headaches. Daily caffeine use. No personal history of tobacco use; no current exposure. Alert and oriented. Pt has been identified by name and birthdate: Yes Allergies reviewed: Yes Latex allergy: no. Medication - prescribed and OTC reviewed and updated: Yes Do you need any prescription refills prior to your next visit: Yes Health Maintenance: Reviewed and not up to date and provider notified Patient advised to continue with current medications and would be contacted if any further instructions after review by PCP. Freida Healy LPN documented in this encounterEast [facility] Hospital05-10-2022 History of Present illness Narrative* Miranda De - 03/30/2022 10:40 AM EDT Last saw Dr. Guerra: 03/22/22 Subjective: Patient presents to clinic c/o painful toenails. They state that the nails are especially painful with shoe gear and pressure. Patient states that nails 1-5 b/l are painful. Patient admits to being diabetic. No other pedal complaints at this time. Patient states no change in medications or medical history since last visit. Objective: Patient presents to clinic ambulating in dress shoes Vasc: DP and PT pulses are palpable bilateral. CFT is less than 5 seconds bilateral. Skin temperature is warm to cool proximal to distal bilateral. There is moderate edema or varicosities noted. Neuro: Protective sensation is intact to the foot and toes when tested with the 5.07 SWM bilateral.Vibratory sensation is decreased at the hallux IPJ bilateral. The hallux is downgoing bilateral. Derm: Nails 1-5 b/l are painful, discolored-yellow, thick, crumbly, dystrophic and with subungal debris. Skin is of normal turgor, texture and hair growth is present bilateral. There are callus to right 5th toe. no ulcerations, scars, verruca or other lesions noted. Ortho: Muscle strength is 5/5 for all pedal groups tested. Ankle joint DF is decreased with the knee extended with no pain or crepitus noted. 1st MPJ ROM is decreased bilateral. Assessment: (B35.1) Onychomycosis (primary encounter diagnosis) (E11.42) Type 2 diabetes mellitus with peripheral neuropathy (HCC) (M79.674) Pain in toe of right foot (M79.675) Pain in toe of left foot hyperkeratosis Plan: Patient was seen and evaluated. Nails 1-5 bilateral were debrided in length and thickness. Callus reduced to right 5th toe with dremmel. In order to perform a complete physical exam, limitedshaving of callus area was performed. This incidental service is integral to the evaluation and management visit in order to appropriately manage and treat the patient (for their complaint or for this visit). Patient was instructed on the continued importance of diabetic foot care along with proper diet andkeeping their blood sugar under control to prevent complications. Patient is to RTC in 3-4 months. Miranda De DPM * Emilie Hunt RN - 03/30/2022 10:32 AM EDT Patient presents with: Left Foot - Established Patient, Diabetic Foot Care Right Foot - Established Patient, Diabetic Foot Care documented in this encounterEast [facility]05-02-2022 History of Present illness Narrative* Jeana Guerra MD - 03/22/2022 10:17 AM EDT Reason for Visit Patient presents with: Established Patient: 6 month follow up- med refills Blessing Jackson is a 81 year old female who presents here today for Above Complaints.. Health Maintenance SHINGRIX VACCINE(2 of 3) ADVANCE DIRECTIVE DISCUSSION DIABETIC FOOT EXAM LDL CHOLESTEROL DILATED RETINAL EXAM PHIL Madrigal is a very very pleasant 80-year-old with a past medical history of hypertension, hypothyroidism, hyperlipidemia, diabetes mellitus among other chronic medical conditions. Hypertension: today could be elevated as she is stressed about who had surgery. Otherwise she is able to tolerate the2. 5 mgs of norvasc 2 times a day as opposed to5 mgs. In addition she is on atenolol 25, lisinopril at 40, hydrochlorothiazide at 25. Diabetes mellitus: Victoza has helped her lose her weight from 224 pounds to 208 over the past 2 to3 years But of late her sugars are not as controlled, I think a trial of ozempic may be warranted, iglesia since her hba1c has steadily climbed up over the past 6 months from 6.8 to 7.2. her diet and exercise have remained the same She does have decreased sensations in the big toes of the feet and the forefoot. No problem-specific Assessment & Plan notes found for this encounter. PAST MEDICAL HISTORY Diagnosis Date Cardiomegaly Cellulitis Essential hypertension, benign 1979 Generalized osteoarthrosis, unspecified site 1989 HX: breast cancer 2009 surgery at [facility] Lymphedema left leg Malignant neoplasm of upper-outer quadrant of female breast (HCC) 04/03/2009 Other and unspecified hyperlipidemia PVD (peripheral vascular disease) (HCC) Special screening for malignant neoplasms, colon 12/12/2014 Type II or unspecified type diabetes mellitus without mention of complication, not stated as uncontrolled 1992 Unspecified hypothyroidism 1969 PAST SURGICAL HISTORY Procedure Laterality Date ARTHRP ACETBLR/PROX FEM PROSTC AGRFT/ALGRFT 2002 right ARTHRP ACETBLR/PROX FEM PROSTC AGRFT/ALGRFT 02/2012 left ARTHRP KNE CONDYLE&PLATU MEDIAL&LAT COMPARTMENTS 10/24/06 left BX BREAST PERC VACUUM/ROTN Right COLONOSCOPY 2004 COLONOSCOPY FLX DX W/COLLJ SPEC WHEN PFRMD 12/12/14 Colonoscopy COLONOSCOPY FLX DX W/COLLJ SPEC WHEN PFRMD 01/03/2020 Colonoscopy DISKECTOMY, LUMBAR, SINGLE SP 10/03/2000 L4-5 with cages per pt report PAST SURGICAL HISTORY OF 03/03/09 right lumpectomy and sentinel node biopsy - Dr. Reynolds - [facility] PAST SURGICAL HISTORY OF Right 02/20/2013 Right TKA FAMILY HISTORY Problem Relation Age of Onset Diabetes Father Heart Mother congenital valve problem Diabetes Sister also has hx breast cancer Diabetes Sister Breast Cancer Sister sister is very private, pt not certain if it was cancer or not. Cancer Maternal Aunt uterine cancer Social History Tobacco Use Smoking status: Never Smoker Smokeless tobacco: Never Used Substance Use Topics Alcohol use: Yes Comment: Occasional Wine Drug use: No Past medical history, appointments, medications, allergies reviewed. Pertinent Lab/Diagnostic Studies are reviewed and discussed today Current Outpatient Medications: gabapentin (NEURONTIN) 300 mg capsule metFORMIN ER (GLUCOPHAGE XR) 500 mg 24 hr tablet amLODIPine (NORVASC) 2.5 mg tablet Insulin Santa Ysabel, Disposable, (BD ULTRA-FINE MARCELO PEN NEEDLE) 32 gauge x 5/32 fluticasone (FLONASE) 50 mcg/actuation nasal spray lisinopril (ZESTRIL, PRINIVIL) 40 mg tablet levothyroxine (SYNTHROID) 100 mcg tablet atenolol (TENORMIN) 25 mg tablet hydroCHLOROthiazide (HYDRODIURIL, ESIDRIX) 25 mg tablet simvastatin (ZOCOR) 20 mg tablet liraglutide (VICTOZA) 0.6 mg/ 0.1 ml subcutaneous pen injector pentoxifylline ER (TRENTAL) 400 mg CR tablet betamethasone dipropionate (DIPROSONE) 0.05 % cream mupirocin (BACTROBAN) 2 % ointment blood sugar diagnostic (ONE TOUCH VERIO) test strip Lancets (ONE TOUCH DELICA) lancets aspirin, enteric coated 81 mg EC tablet acetaminophen (TYLENOL EXTRA STRENGTH) 500 mg tablet OTC PRODUCT multivitamins(DAILY MULTIVITAMIN TAB) Review of Systems CONSTITUTIONAL: No fevers, chills night sweats, unintended weight loss CARDIOVASCULAR: No chest pain, dyspnea, palpitations, orthopnea, PND, ankle edema. PULM: No dyspnea, unexplained cough. GI: No dysphagia/odynophagia, problematic reflux, constipation, diarrhea, changes in stool habits, hematochezia, melena. : No new urinary complaints, including dysuria, gross hematuria or pyuria. NEURO: No new balance problems, peripheral weakness/paresthesias or numbness of concern. Physical Exam BP 146/80 (BP Site: Left Arm, BP Position: Sitting, BP Cuff Size: Large Adult) Pulse 76 Temp 36.8 C (98.2 F) Resp 14 Ht 157.5 cm (5' 2) Wt 95.3 kg (210 lb) SpO2 98% BMI 38.41 kg/m General appearance: Well appearing, alert, in no acute distress, well nourished. Skin: Skin color, texture, turgor normal, no suspicious rashes or lesions Head: Normocephalic, no masses, lesions, tenderness or abnormalities Eyes: Anicteric sclera. Pupils are equally round and reactive to light. Extraocular movements are intact. Lungs: Lungs clear to auscultation. No wheezing, rhonchi, rales Heart: RRR without murmur, gallop, or rubs. Feet: Shoes and socks removed, No deformities, ulcers, calluses, not sensitive to monofilament decreased sensation on the big toes of her feet and the forefoot. Along with onychomycosis and bilaterally. ASSESSMENT/PLAN: 1. Hypothyroidism, unspecified type - ICD9: 244.9, ICD10: E03.9 (primary diagnosis) - Instructed patient on importance of taking on an empty stomach either first thing in the morning or at bedtime. Stable - Continue current medications 2. Type 2 diabetes mellitus with peripheral neuropathy (HCC) - ICD9: 250.60, 357.2, ICD10: E11.42 Controlled. - Continue current medications - GABAPENTIN 300 MG CAPSULE - METFORMIN ER 500 MG TABLET,EXTENDED RELEASE 24 HR - PEN NEEDLE, DIABETIC 32 GAUGE X - CONSULT TO PODIATRY 3. Acquired hypothyroidism - ICD9: 244.9, ICD10: E03.9 - Instructed patient on importance of taking on an empty stomach either first thing in the morning or at bedtime. Stable - Continue current medications 4. Hypertension goal BP (blood pressure) < 150/90 - ICD9: 401.9, ICD10: I10 - good control - Recommended regular aerobic exercise. - Recommend home blood pressure monitoring, to bring results in on next visit - Goal of BP <130/80 5. Controlled type 2 diabetes mellitus without complication, without long-term current use of insulin (HCC) - ICD9: 250.00, ICD10: E11.9 Controlled. - Continue current medications 6. 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lbuminuria, without long-term current use of insulin (HCC) - ICD9: 250.40, 791.0, ICD10: E11.29, R80.9 Controlled. - Continue current medications 7. Essential hypertension - ICD9: 401.9, ICD10: I10 - good control - Recommended regular aerobic exercise. - Recommend home blood pressure monitoring, to bring results in on next visit - Goal of BP <130/80 - AMLODIPINE 2.5 MG TABLET 8. Diabetic polyneuropathy associated with type 2 diabetes mellitus (HCC) - ICD9: 250.60, 357.2, ICD10: E11.42 Controlled. - Continue current medications 9. Onychomycosis - ICD9: 110.1, ICD10: B35.1 Stable Jeana Guerra [facility] Past illness Narrative* Problem Noted Date Resolved Date Right wrist pain 09/29/2021 03/18/2022 Carpal tunnel syndrome on right 04/13/2018 05/28/2020 Overview: Added automatically from request for surgery [id number] Morbid obesity with BMI of 40.0-44.9, adult /05/201503/18/2022 BMI 40.0-44.9, adult 02/21/2014 02/14/2015 Family history of bilateral hip replacements 11/201203/18/2022 Leg edema 03/28/2012 08/25/2016 Obesity, Class III, BMI 40-49.9 (morbid obesity) 03/28/2012 02/14/2015 Osteoarthrosis, unspecified whether generalized or localized, pelvic region and thigh 02/06/2012 08/25/2016 Left groin pain 11/04/2011 08/25/2016 Abdominal pain, unspecified site 10/01/2011 08/25/2016 VENOUS INSUFFICIENCY 05/14/2009 08/25/2016 Abnormal mammogram, unspecified 02/13/2009 08/25/2016 DIABETES MELLITUS TYPE II-UNCOMPL 04/18/2015 documented as of this encounter (statuses as of 03/22/2022) [facility] of Past illness Narrative* Problem Noted Date Resolved Date Right wrist pain 09/29/2021 03/18/2022 Carpal tunnel syndrome on right 04/13/2018 05/28/2020 Overview: Added automatically from request for surgery [id number] Morbid obesity with BMI of 40.0-44.9, adult 01/2003/18/2022 BMI 40.0-44.9, adult 02/21/2014 02/14/2015 Family history of bilateral hip replacements 11/201203/18/2022 Leg edema 03/28/2012 08/25/2016 Obesity, Class III, BMI 40-49.9 (morbid obesity) 03/28/2012 02/14/2015 Osteoarthrosis, unspecified whether generalized or localized, pelvic region and thigh 02/06/2012 08/25/2016 Left groin pain 11/04/2011 08/25/2016 Abdominal pain, unspecified site 10/01/2011 08/25/2016 VENOUS INSUFFICIENCY 05/14/2009 08/25/2016 Abnormal mammogram, unspecified 02/13/2009 08/25/2016 DIABETES MELLITUS TYPE II-UNCOMPL 04/18/2015 documented as of this encounter (statuses as of 03/30/2022) [facility] of Past illness Narrative* Problem Noted Date Resolved Date Right wrist pain 09/29/2021 03/18/2022 Carpal tunnel syndrome on right 04/13/2018 05/28/2020 Overview: Added automatically from request for surgery [id number] Morbid obesity with BMI of 40.0-44.9, adult 01/2003/18/2022 BMI 40.0-44.9, adult 02/21/2014 02/14/2015 Family history of bilateral hip replacements 11/201203/18/2022 Leg edema 03/28/2012 08/25/2016 Obesity, Class III, BMI 40-49.9 (morbid obesity) 03/28/2012 02/14/2015 Osteoarthrosis, unspecified whether generalized or localized, pelvic region and thigh 02/06/2012 08/25/2016 Left groin pain 11/04/2011 08/25/2016 Abdominal pain, unspecified site 10/01/2011 08/25/2016 VENOUS INSUFFICIENCY 05/14/2009 08/25/2016 Abnormal mammogram, unspecified 02/13/2009 08/25/2016 DIABETES MELLITUS TYPE II-UNCOMPL 04/18/2015 documented as of this encounter (statuses as of 04/06/2022) [facility] of Past illness Narrative* Problem Noted Date Resolved Date Right wrist pain 09/29/2021 03/18/2022 Carpal tunnel syndrome on right 04/13/2018 05/28/2020 Overview: Added automatically from request for surgery [id number] Morbid obesity with BMI of 40.0-44.9, adult 01/2003/18/2022 BMI 40.0-44.9, adult 02/21/2014 02/14/2015 Family history of bilateral hip replacements 11/201203/18/2022 Leg edema 03/28/2012 08/25/2016 Obesity, Class III, BMI 40-49.9 (morbid obesity) 03/28/2012 02/14/2015 Osteoarthrosis, unspecified whether generalized or localized, pelvic region and thigh 02/06/2012 08/25/2016 Left groin pain 11/04/2011 08/25/2016 Abdominal pain, unspecified site 10/01/2011 08/25/2016 VENOUS INSUFFICIENCY 05/14/2009 08/25/2016 Abnormal mammogram, unspecified 02/13/2009 08/25/2016 DIABETES MELLITUS TYPE II-UNCOMPL 04/18/2015 documented as of this encounter (statuses as of 04/07/2022) [facility] of Past illness Narrative* Problem Noted Date Resolved Date Right wrist pain 09/29/2021 03/18/2022 Carpal tunnel syndrome on right 04/13/2018 05/28/2020 Overview: Added automatically from request for surgery [id number] Morbid obesity with BMI of 40.0-44.9, adult 01/2003/18/2022 BMI 40.0-44.9, adult 02/21/2014 02/14/2015 Family history of bilateral hip replacements 11/201203/18/2022 Leg edema 03/28/2012 08/25/2016 Obesity, Class III, BMI 40-49.9 (morbid obesity) 03/28/2012 02/14/2015 Osteoarthrosis, unspecified whether generalized or localized, pelvic region and thigh 02/06/2012 08/25/2016 Left groin pain 11/04/2011 08/25/2016 Abdominal pain, unspecified site 10/01/2011 08/25/2016 VENOUS INSUFFICIENCY 05/14/2009 08/25/2016 Abnormal mammogram, unspecified 02/13/2009 08/25/2016 DIABETES MELLITUS TYPE II-UNCOMPL 04/18/2015 documented as of this encounter (statuses as of 06/30/2022) [facility] Past illness Narrative* Problem Noted Date Resolved Date Right wrist pain 09/29/2021 03/18/2022 Carpal tunnel syndrome on right 04/13/2018 05/28/2020 Overview: Added automatically from request for surgery [id number] Morbid obesity with BMI of 40.0-44.9, adult 01/2003/18/2022 BMI 40.0-44.9, adult 02/21/2014 02/14/2015 Family history of bilateral hip replacements 11/201203/18/2022 Leg edema 03/28/2012 08/25/2016 Obesity, Class III, BMI 40-49.9 (morbid obesity) 03/28/2012 02/14/2015 Osteoarthrosis, unspecified whether generalized or localized, pelvic region and thigh 02/06/2012 08/25/2016 Left groin pain 11/04/2011 08/25/2016 Abdominal pain, unspecified site 10/01/2011 08/25/2016 VENOUS INSUFFICIENCY 05/14/2009 08/25/2016 Abnormal mammogram, unspecified 02/13/2009 08/25/2016 DIABETES MELLITUS TYPE II-UNCOMPL 04/18/2015 documented as of this encounter (statuses as of 08/06/2022) [facility] Narrative* Problem Noted Date Resolved Date Right wrist pain 09/29/2021 03/18/2022 Carpal tunnel syndrome on right 04/13/2018 05/28/2020 Overview: Added automatically from request for surgery [id number] Morbid obesity with BMI of 40.0-44.9, adult 01/2003/18/2022 BMI 40.0-44.9, adult 02/21/2014 02/14/2015 Family history of bilateral hip replacements 11/201203/18/2022 Leg edema 03/28/2012 08/25/2016 Obesity, Class III, BMI 40-49.9 (morbid obesity) 03/28/2012 02/14/2015 Osteoarthrosis, unspecified whether generalized or localized, pelvic region and thigh 02/06/2012 08/25/2016 Left groin pain 11/04/2011 08/25/2016 Abdominal pain, unspecified site 10/01/2011 08/25/2016 VENOUS INSUFFICIENCY 05/14/2009 08/25/2016 Abnormal mammogram, unspecified 02/13/2009 08/25/2016 DIABETES MELLITUS TYPE II-UNCOMPL 04/18/2015 documented as of this encounter (statuses as of 10/04/2022) [facility] illness Narrative* Problem Noted Date Resolved Date Right wrist pain 09/29/2021 03/18/2022 Carpal tunnel syndrome on right 04/13/2018 05/28/2020 Overview: Added automatically from request for surgery [id number] Morbid obesity with BMI of 40.0-44.9, adult /05/201503/18/2022 BMI 40.0-44.9, adult 02/21/2014 02/14/2015 Family history of bilateral hip replacements 11/201203/18/2022 Leg edema 03/28/2012 08/25/2016 Obesity, Class III, BMI 40-49.9 (morbid obesity) 03/28/2012 02/14/2015 Osteoarthrosis, unspecified whether generalized or localized, pelvic region and thigh 02/06/2012 08/25/2016 Left groin pain 11/04/2011 08/25/2016 Abdominal pain, unspecified site 10/01/2011 08/25/2016 VENOUS INSUFFICIENCY 05/14/2009 08/25/2016 Abnormal mammogram, unspecified 02/13/2009 08/25/2016 DIABETES MELLITUS TYPE II-UNCOMPL 04/18/2015 documented as of this encounter (statuses as of 10/22/2022) [facility] Narrative* Problem Noted Date Resolved Date Right wrist pain 09/29/2021 03/18/2022 Carpal tunnel syndrome on right 04/13/2018 05/28/2020 Overview: Added automatically from request for surgery [id number] Morbid obesity with BMI of 40.0-44.9, adult 01/2003/18/2022 BMI 40.0-44.9, adult 02/21/2014 02/14/2015 Family history of bilateral hip replacements 11/201203/18/2022 Leg edema 03/28/2012 08/25/2016 Obesity, Class III, BMI 40-49.9 (morbid obesity) 03/28/2012 02/14/2015 Osteoarthrosis, unspecified whether generalized or localized, pelvic region and thigh 02/06/2012 08/25/2016 Left groin pain 11/04/2011 08/25/2016 Abdominal pain, unspecified site 10/01/2011 08/25/2016 VENOUS INSUFFICIENCY 05/14/2009 08/25/2016 Abnormal mammogram, unspecified 02/13/2009 08/25/2016 DIABETES MELLITUS TYPE II-UNCOMPL 04/18/2015 documented as of this encounter (statuses as of 10/28/2022) [facility] Narrative* Problem Noted Date Resolved Date Right wrist pain 09/29/2021 03/18/2022 Carpal tunnel syndrome on right 04/13/2018 05/28/2020 Overview: Added automatically from request for surgery [id number] Morbid obesity with BMI of 40.0-44.9, adult 01/2003/18/2022 BMI 40.0-44.9, adult 02/21/2014 02/14/2015 Family history of bilateral hip replacements 11/201203/18/2022 Leg edema 03/28/2012 08/25/2016 Obesity, Class III, BMI 40-49.9 (morbid obesity) 03/28/2012 02/14/2015 Osteoarthrosis, unspecified whether generalized or localized, pelvic region and thigh 02/06/2012 08/25/2016 Left groin pain 11/04/2011 08/25/2016 Abdominal pain, unspecified site 10/01/2011 08/25/2016 VENOUS INSUFFICIENCY 05/14/2009 08/25/2016 Abnormal mammogram, unspecified 02/13/2009 08/25/2016 DIABETES MELLITUS TYPE II-UNCOMPL 04/18/2015 documented as of this encounter (statuses as of 11/27/2022) [facility] Narrative* Problem Noted Date Resolved Date Right wrist pain 09/29/2021 03/18/2022 Carpal tunnel syndrome on right 04/13/2018 05/28/2020 Overview: Added automatically from request for surgery [id number] Morbid obesity with BMI of 40.0-44.9, adult 01/2003/18/2022 BMI 40.0-44.9, adult 02/21/2014 02/14/2015 Family history of bilateral hip replacements 11/201203/18/2022 Leg edema 03/28/2012 08/25/2016 Obesity, Class III, BMI 40-49.9 (morbid obesity) 03/28/2012 02/14/2015 Osteoarthrosis, unspecified whether generalized or localized, pelvic region and thigh 02/06/2012 08/25/2016 Left groin pain 11/04/2011 08/25/2016 Abdominal pain, unspecified site 10/01/2011 08/25/2016 VENOUS INSUFFICIENCY 05/14/2009 08/25/2016 Abnormal mammogram, unspecified 02/13/2009 08/25/2016 DIABETES MELLITUS TYPE II-UNCOMPL 04/18/2015 documented as of this encounter (statuses as of 11/30/2022) [facility] Narrative* Problem Noted Date Resolved Date Right wrist pain 09/29/2021 03/18/2022 Carpal tunnel syndrome on right 04/13/2018 05/28/2020 Overview: Added automatically from request for surgery [id number] Morbid obesity with BMI of 40.0-44.9, adult 01/2003/18/2022 BMI 40.0-44.9, adult 02/21/2014 02/14/2015 Family history of bilateral hip replacements 11/201203/18/2022 Leg edema 03/28/2012 08/25/2016 Obesity, Class III, BMI 40-49.9 (morbid obesity) 03/28/2012 02/14/2015 Osteoarthrosis, unspecified whether generalized or localized, pelvic region and thigh 02/06/2012 08/25/2016 Left groin pain 11/04/2011 08/25/2016 Abdominal pain, unspecified site 10/01/2011 08/25/2016 VENOUS INSUFFICIENCY 05/14/2009 08/25/2016 Abnormal mammogram, unspecified 02/13/2009 08/25/2016 DIABETES MELLITUS TYPE II-UNCOMPL 04/18/2015 documented as of this encounter (statuses as of 12/03/2022) [facility] Narrative* Problem Noted Date Resolved Date Right wrist pain 09/29/2021 03/18/2022 Carpal tunnel syndrome on right 04/13/2018 05/28/2020 Overview: Added automatically from request for surgery [id number] Morbid obesity with BMI of 40.0-44.9, adult 01/2003/18/2022 BMI 40.0-44.9, adult 02/21/2014 02/14/2015 Family history of bilateral hip replacements 11/201203/18/2022 Leg edema 03/28/2012 08/25/2016 Obesity, Class III, BMI 40-49.9 (morbid obesity) 03/28/2012 02/14/2015 Osteoarthrosis, unspecified whether generalized or localized, pelvic region and thigh 02/06/2012 08/25/2016 Left groin pain 11/04/2011 08/25/2016 Abdominal pain, unspecified site 10/01/2011 08/25/2016 VENOUS INSUFFICIENCY 05/14/2009 08/25/2016 Abnormal mammogram, unspecified 02/13/2009 08/25/2016 DIABETES MELLITUS TYPE II-UNCOMPL 04/18/2015 documented as of this encounter (statuses as of 03/05/2023) [facility] Narrative* Problem Noted Date Resolved Date Right wrist pain 09/29/2021 03/18/2022 Carpal tunnel syndrome on right 04/13/2018 05/28/2020 Overview: Added automatically from request for surgery [id number] Morbid obesity with BMI of 40.0-44.9, adult 01/2003/18/2022 BMI 40.0-44.9, adult 02/21/2014 02/14/2015 Family history of bilateral hip replacements 11/201203/18/2022 Leg edema 03/28/2012 08/25/2016 Obesity, Class III, BMI 40-49.9 (morbid obesity) 03/28/2012 02/14/2015 Osteoarthrosis, unspecified whether generalized or localized, pelvic region and thigh 02/06/2012 08/25/2016 Left groin pain 11/04/2011 08/25/2016 Abdominal pain, unspecified site 10/01/2011 08/25/2016 VENOUS INSUFFICIENCY 05/14/2009 08/25/2016 Abnormal mammogram, unspecified 02/13/2009 08/25/2016 DIABETES MELLITUS TYPE II-UNCOMPL 04/18/2015 documented as of this encounter (statuses as of 04/01/2023) [facility] Narrative* Problem Noted Date Resolved Date Right wrist pain 09/29/2021 03/18/2022 Carpal tunnel syndrome on right 04/13/2018 05/28/2020 Overview: Added automatically from request for surgery [id number] Morbid obesity with BMI of 40.0-44.9, adult /05/201503/18/2022 BMI 40.0-44.9, adult 02/21/2014 02/14/2015 Family history of bilateral hip replacements 11/201203/18/2022 Leg edema 03/28/2012 08/25/2016 Obesity, Class III, BMI 40-49.9 (morbid obesity) 03/28/2012 02/14/2015 Osteoarthrosis, unspecified whether generalized or localized, pelvic region and thigh 02/06/2012 08/25/2016 Left groin pain 11/04/2011 08/25/2016 Abdominal pain, unspecified site 10/01/2011 08/25/2016 VENOUS INSUFFICIENCY 05/14/2009 08/25/2016 Abnormal mammogram, unspecified 02/13/2009 08/25/2016 DIABETES MELLITUS TYPE II-UNCOMPL 04/18/2015 documented as of this encounter (statuses as of 04/20/2023) [facility] Narrative* Problem Noted Date Diagnosed Date Resolved Date Right wrist pain 09/29/2021 03/18/2022 Carpal tunnel syndrome on right 04/13/2018 05/28/2020 Overview: Added automatically from request for surgery [id number] Morbid obesity with BMI of 40.0-44.9, adult 02/14/2015 03/18/2022 BMI 40.0-44.9, adult 02/21/2014 015 Family history of bilateral hip replacements 3 03/18/2022 Leg edema 03/28/2012 08/25/2016 Obesity, Class III, BMI 40-4 9.9 (morbid obesity) 03/28/2012 02/14/2015 Osteoarthrosis, unspecified whether generalized or localized, pelvic region and thigh 02/06/2012 08/25/2016 Left groin pain 11/04/2011 08/25/2016 Abdominal pain, unspecified site 10/01/2011 08/25/2016 VENOUS INSUFFICIENCY 05/14/2009 016 Abnormal mammogram, unspecified 02/13/2009 08/25/2016 DIABETES MELLITUS TYPE II-UNCOMPL 04/18/2015 documented as of this encounter (statuses as of 09/09/2023) [facility] Narrative* Problem Noted Date Diagnosed Date Resolved Date Right wrist pain 09/29/2021 03/18/2022 Carpal tunnel syndrome on right 04/13/2018 05/28/2020 Overview: Added automatically from request for surgery [id number] Morbid obesity with BMI of 40.0-44.9, adult 02/14/2015 03/18/2022 BMI 40.0-44.9, adult 02/21/2014 015 Family history of bilateral hip replacements 3 03/18/2022 Leg edema 03/28/2012 08/25/2016 Obesity, Class III, BMI 40-4 9.9 (morbid obesity) 03/28/2012 02/14/2015 Osteoarthrosis, unspecified whether generalized or localized, pelvic region and thigh 02/06/2012 08/25/2016 Left groin pain 11/04/2011 08/25/2016 Abdominal pain, unspecified site 10/01/2011 08/25/2016 VENOUS INSUFFICIENCY 05/14/2009 016 Abnormal mammogram, unspecified 02/13/2009 08/25/2016 DIABETES MELLITUS TYPE II-UNCOMPL 04/18/2015 documented as of this encounter (statuses as of 09/12/2023) [facility]arrative* Problem Noted Date Diagnosed Date Resolved Date Right wrist pain 09/29/2021 03/18/2022 Carpal tunnel syndrome on right 04/13/2018 05/28/2020 Overview: Added automatically from request for surgery [id number] Morbid obesity with BMI of 40.0-44.9, adult 02/14/2015 03/18/2022 BMI 40.0-44.9, adult 02/21/2014 015 Family history of bilateral hip replacements 3 03/18/2022 Leg edema 03/28/2012 08/25/2016 Obesity, Class III, BMI 40-4 9.9 (morbid obesity) 03/28/2012 02/14/2015 Osteoarthrosis, unspecified whether generalized or localized, pelvic region and thigh 02/06/2012 08/25/2016 Left groin pain 11/04/2011 08/25/2016 Abdominal pain, unspecified site 10/01/2011 08/25/2016 VENOUS INSUFFICIENCY 05/14/2009 016 Abnormal mammogram, unspecified 02/13/2009 08/25/2016 DIABETES MELLITUS TYPE II-UNCOMPL 04/18/2015 documented as of this encounter (statuses as of 09/16/2023) [facility] Narrative* Problem Noted Date Diagnosed Date Resolved Date Right wrist pain 09/29/2021 03/18/2022 Carpal tunnel syndrome on right 04/13/2018 05/28/2020 Overview: Added automatically from request for surgery [id number] Morbid obesity with BMI of 40.0-44.9, adult 02/14/2015 03/18/2022 BMI 40.0-44.9, adult 02/21/2014 015 Family history of bilateral hip replacements 3 03/18/2022 Leg edema 03/28/2012 08/25/2016 Obesity, Class III, BMI 40-4 9.9 (morbid obesity) 03/28/2012 02/14/2015 Osteoarthrosis, unspecified whether generalized or localized, pelvic region and thigh 02/06/2012 08/25/2016 Left groin pain 11/04/2011 08/25/2016 Abdominal pain, unspecified site 10/01/2011 08/25/2016 VENOUS INSUFFICIENCY 05/14/2009 016 Abnormal mammogram, unspecified 02/13/2009 08/25/2016 DIABETES MELLITUS TYPE II-UNCOMPL 04/18/2015 documented as of this encounter (statuses as of 09/30/2023) [facility] Narrative* Problem Noted Date Diagnosed Date Resolved Date Right wrist pain 09/29/2021 03/18/2022 Carpal tunnel syndrome on right 04/13/2018 05/28/2020 Overview: Added automatically from request for surgery [id number] Morbid obesity with BMI of 40.0-44.9, adult 02/14/2015 03/18/2022 BMI 40.0-44.9, adult 02/21/2014 015 Family history of bilateral hip replacements 3 03/18/2022 Leg edema 03/28/2012 08/25/2016 Obesity, Class III, BMI 40-4 9.9 (morbid obesity) 03/28/2012 02/14/2015 Osteoarthrosis, unspecified whether generalized or localized, pelvic region and thigh 02/06/2012 08/25/2016 Left groin pain 11/04/2011 08/25/2016 Abdominal pain, unspecified site 10/01/2011 08/25/2016 VENOUS INSUFFICIENCY 05/14/2009 016 Abnormal mammogram, unspecified 02/13/2009 08/25/2016 DIABETES MELLITUS TYPE II-UNCOMPL 04/18/2015 documented as of this encounter (statuses as of 12/28/2023) [facility] Narrative* Problem Noted Date Diagnosed Date Resolved Date Right wrist pain 09/29/2021 03/18/2022 Carpal tunnel syndrome on right 04/13/2018 05/28/2020 Overview: Added automatically from request for surgery [id number] Morbid obesity with BMI of 40.0-44.9, adult 02/14/2015 03/18/2022 BMI 40.0-44.9, adult 02/21/2014 015 Family history of bilateral hip replacements 3 03/18/2022 Leg edema 03/28/2012 08/25/2016 Obesity, Class III, BMI 40-4 9.9 (morbid obesity) 03/28/2012 02/14/2015 Osteoarthrosis, unspecified whether generalized or localized, pelvic region and thigh 02/06/2012 08/25/2016 Left groin pain 11/04/2011 08/25/2016 Abdominal pain, unspecified site 10/01/2011 08/25/2016 VENOUS INSUFFICIENCY 05/14/2009 016 Abnormal mammogram, unspecified 02/13/2009 08/25/2016 DIABETES MELLITUS TYPE II-UNCOMPL 04/18/2015 documented as of this encounter (statuses as of 01/03/2024) [facility] Narrative* Problem Noted Date Diagnosed Date Resolved Date Right wrist pain 09/29/2021 03/18/2022 Carpal tunnel syndrome on right 04/13/2018 05/28/2020 Overview: Added automatically from request for surgery [id number] Morbid obesity with BMI of 40.0-44.9, adult 02/14/2015 03/18/2022 BMI 40.0-44.9, adult 02/21/2014 015 Family history of bilateral hip replacements 3 03/18/2022 Leg edema 03/28/2012 08/25/2016 Obesity, Class III, BMI 40-4 9.9 (morbid obesity) 03/28/2012 02/14/2015 Osteoarthrosis, unspecified whether generalized or localized, pelvic region and thigh 02/06/2012 08/25/2016 Left groin pain 11/04/2011 08/25/2016 Abdominal pain, unspecified site 10/01/2011 08/25/2016 VENOUS INSUFFICIENCY 05/14/2009 016 Abnormal mammogram, unspecified 02/13/2009 08/25/2016 DIABETES MELLITUS TYPE II-UNCOMPL 04/18/2015 documented as of this encounter (statuses as of 01/27/2024) [facility] Narrative* Problem Noted Date Diagnosed Date Resolved Date Right wrist pain 09/29/2021 03/18/2022 Carpal tunnel syndrome on right 04/13/2018 05/28/2020 Overview: Added automatically from request for surgery [id number] Morbid obesity with BMI of 40.0-44.9, adult 02/14/2015 03/18/2022 BMI 40.0-44.9, adult 02/21/2014 015 Family history of bilateral hip replacements 3 03/18/2022 Leg edema 03/28/2012 08/25/2016 Obesity, Class III, BMI 40-4 9.9 (morbid obesity) 03/28/2012 02/14/2015 Osteoarthrosis, unspecified whether generalized or localized, pelvic region and thigh 02/06/2012 08/25/2016 Left groin pain 11/04/2011 08/25/2016 Abdominal pain, unspecified site 10/01/2011 08/25/2016 VENOUS INSUFFICIENCY 05/14/2009 016 Abnormal mammogram, unspecified 02/13/2009 08/25/2016 DIABETES MELLITUS TYPE II-UNCOMPL 04/18/2015 documented as of this encounter (statuses as of 03/01/2024) [facility] Narrative* Problem Noted Date Resolved Date Carpal tunnel syndrome on right 04/13/2018 05/28/2020 Overview: Added automatically from request for surgery [id number] BMI 40.0-44.9, adult 02/21/2014 02/14/2015 Leg edema 03/28/2012 08/25/2016 Obesity, Class III, BMI 40-49.9 (morbid obesity) 03/28/2012 02/14/2015 Osteoarthrosis, unspecified whether generalized or localized, pelvic region and thigh 02/06/2012 08/25/2016 Left groin pain 11/04/2011 08/25/2016 Abdominal pain, unspecified site 10/01/2011 08/25/2016 VENOUS INSUFFICIENCY 05/14/2009 08/25/2016 Abnormal mammogram, unspecified 02/13/2009 08/25/2016 DIABETES MELLITUS TYPE II-UNCOMPL 04/18/2015 documented as of this encounter (statuses as of 03/12/2022) [facility] Diagnosis Diabetic polyneuropathy associated with type 2 diabetes mellitus (HCC) Hypothyroidism Unspecified hypothyroidism [facility] Diagnosis Hypothyroidism, unspecified type- Primary Type 2 diabetes mellitus with peripheral neuropathy (HCC) Acquired hypothyroidism Unspecified hypothyroidism Hypertension goal BP (blood pressure) < 150/90 Unspecified essential hypertension Controlled type 2 diabetes mellitus without complication, without long-term current use of insulin (HCC) 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lbuminuria, without long-term current use of insulin (HCC) Essential hypertension Unspecified essential hypertension Diabetic polyneuropathy associated with type 2 diabetes mellitus (HCC) Onychomycosis Dermatophytosis of nail [facility] Diagnosis Onychomycosis- Primary Dermatophytosis of nail Type 2 diabetes mellitus with peripheral neuropathy (HCC) Pain in toe of right foot Pain in limb Pain in toe of left foot Pain in limb [facility] Essential hypertension- Primary Unspecified essential hypertension [facility] Diagnosis Urinary tract infection without hematuria, site unspecified [facility] Diagnosis Type 2 diabetes mellitus with peripheral neuropathy (HCC) [facility] Diagnosis Diabetic polyneuropathy associated with type 2 diabetes mellitus (HCC) [facility] Diagnosis Ductal carcinoma in situ (DCIS) of right breast Encounter for screening mammogram for malignant neoplasm of breast Other [facility] Onset Date Resolution Status Cardiomegaly acute Generalized osteoarthrosis a cute History of lumbar laminectomy acute History of lumpectomy of right breast acute History of right breast cancer acute History of total bilateral knee replacement (TKR) acute History of total replacement of both hip joints acute Hyperpigmentation of skin ac mindy Left leg swelling acute Lipodermatosclerosis of both lower extremities acute Right leg swelling acute [id number] acute Venous stasis ulcer acute Chronic venous insufficiency chronic Dyslipidemia chronic Hypertension chronic Hypothyroidism chronic Type 2 diabetes mellitus chr onic 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 [facility] Work Phone: Evaluation note* Diagnosis Lipodermatosclerosis of both lower extremities- Primary [facility] Diagnosis Hyperlipidemia, unspecified hyperlipidemia type [facility] Diagnosis Hyperlipidemia, unspecified hyperlipidemia type Essential hypertension Unspecified essential hypertension [facility] Diagnosis Hyperlipidemia, unspecified hyperlipidemia type- Primary Hypertension goal BP (blood pressure) < 150/90 Unspecified essential hypertension Hypothyroidism, adult Other specified acquired hypothyroidism Essential hypertension Unspecified essential hypertension 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lbuminuria, without long-term current use of insulin (HCC) [facility] Diagnosis Type 2 diabetes mellitus with peripheral neuropathy (HCC)- Primary Onychomycosis Dermatophytosis of nail Pain in toe of right foot Pain in limb Pain in toe of left foot Pain in limb [facility] Diagnosis Leg swelling- Primary Swelling of limb Lipodermatosclerosis of both lower extremities Chronic venous insufficiency Unspecified venous (peripheral) insufficiency Lymphedema Other lymphedema Abdominal pannus Localized adiposity Leg cramps Cramp of limb Pain in both lower extremities Bruit of left carotid artery Other symptoms involving cardiovascular system [facility] Diagnosis Diabetic polyneuropathy associated with type 2 diabetes mellitus (HCC) Hypothyroidism Unspecified hypothyroidism [facility] Diagnosis Type 2 diabetes mellitus with peripheral neuropathy (HCC)- Primary Onychomycosis Dermatophytosis of nail Pain in toe of right foot Pain in limb Pain in toe of left foot Pain in limb Callus of foot Corns and callosities Hammer toe of right foot Peripheral arterial disease (HCC) Peripheral vascular disease, unspecified [facility] Leg swelling- Primary Swelling of limb Lipodermatosclerosis of both lower extremities Lymphedema Other lymphedema Chronic venous insufficiency Unspecified venous (peripheral) insufficiency Leg cramps Cramp of limb Bruit of left carotid artery Other symptoms involving cardiovascular system [facility] Diagnosis Ductal carcinoma in situ (DCIS) of right breast Encounter for screening mammogram for malignant neoplasm of breast Other screening mammogram [facility] Diagnosis Type 2 diabetes mellitus with peripheral neuropathy (HCC)- Primary Onychomycosis Dermatophytosis of nail Pain in toe of right foot Pain in limb Pain in toe of left foot Pain in limb Peripheral arterial disease (HCC) Peripheral vascular disease, unspecified [facility] Diagnosis Essential hypertension Unspecified essential hypertension [facility] Diagnosis Diabetic polyneuropathy associated with type 2 diabetes mellitus (HCC) Hyperlipidemia Other and unspecified hyperlipidemia [facility] Diagnosis Essential hypertension- Primary Unspecified essential hypertension Type 2 diabetes mellitus with peripheral neuropathy (HCC) Hypothyroidism, adult Other specified acquired hypothyroidism Hyperlipidemia, unspecified hyperlipidemia type Carpal tunnel syndrome of left wrist Carpal tunnel syndrome [facility] Diagnosis Carpal tunnel syndrome on left- Primary Carpal tunnel syndrome Carpal tunnel syndrome on left Carpal tunnel syndrome [facility] Diagnosis Hyperlipidemia, unspecified hyperlipidemia type Carpal tunnel syndrome on left Carpal tunnel syndrome [facility] Diagnosis Preoperative examination- Primary Preoperative examination, unspecified Diabetic polyneuropathy associated with type 2 diabetes mellitus (HCC) Essential hypertension Unspecified essential hypertension Peripheral venous insufficiency Unspecified venous (peripheral) insufficiency 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lbuminuria, without long-term current use of insulin (HCC) (HCC) History of cancer of right breast Lipodermatosclerosis Panniculitis of other sites Carpal tunnel syndrome on left Carpal tunnel syndrome Carpal tunnel syndrome on left Carpal tunnel syndrome [facility] Diagnosis Post-operative state- Primary Other postprocedural status [facility] Diagnosis Diabetic polyneuropathy associated with type 2 diabetes mellitus (HCC) Hypothyroidism Unspecified hypothyroidism [facility] Diagnosis Essential hypertension- Primary Unspecified essential hypertension Hyperlipidemia, unspecified hyperlipidemia type Type 2 diabetes mellitus with peripheral neuropathy (HCC) Hypothyroidism, adult Other specified acquired hypothyroidism Function kidney decreased Unspecified disorder of kidney and ureter [facility] Diagnosis Onychomycosis- Primary Dermatophytosis of nail Pain in toe of right foot Pain in limb Pain in toe of left foot Pain in limb Type 2 diabetes mellitus with peripheral neuropathy ([facility]) [facility] Diagnosis Carpal tunnel syndrome on left- Primary Carpal tunnel syndrome [facility] Diagnosis Essential hypertension- Primary Unspecified essential hypertension [facility] Diagnosis Controlled type 2 diabetes mellitus without complication, without long-term current use of insulin (HCC)- Primary Eustachian tube dysfunction, bilateral Need for vaccination Need for prophylactic vaccination and inoculation against unspecified single disease Hypertension goal BP (blood pressure) < 150/90 Unspecified essential hypertension Wound of left lower extremity, subsequent encounter LVH (left ventricular hypertrophy) Cardiomegaly Hypothyroidism, unspecified type Type 2 diabetes mellitus with peripheral neuropathy (HCC) Hypertension goal BP (blood pressure) < 150/90 Unspecified essential hypertension Hypothyroidism, adult Other specified acquired hypothyroidism Eustachian tube dysfunction, bilateral Lipodermatosclerosis Panniculitis of other sites Lymphedema Other lymphedema Pain Generalized pain Preoperative examination- Primary Preoperative examination, unspecified Diabetic polyneuropathy associated with type 2 diabetes mellitus (HCC) Essential hypertension Unspecified essential hypertension Peripheral venous insufficiency Unspecified venous (peripheral) insufficiency 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lbuminuria, without long-term current use of insulin (HCC) (HCC) History of cancer of right breast Lipodermatosclerosis Panniculitis of other sites Carpal tunnel syndrome on left Carpal tunnel syndrome [facility] Diagnosis Controlled type 2 diabetes mellitus without complication, without long-term current use of insulin (HCC)- Primary Eustachian tube dysfunction, bilateral Need for vaccination Need for prophylactic vaccination and inoculation against unspecified single disease Hypertension goal BP (blood pressure) < 150/90 Unspecified essential hypertension Wound of left lower extremity, subsequent encounter LVH (left ventricular hypertrophy) Cardiomegaly Hypothyroidism, unspecified type Type 2 diabetes mellitus with peripheral neuropathy (HCC) Hypertension goal BP (blood pressure) < 150/90 Unspecified essential hypertension Hypothyroidism, adult Other specified acquired hypothyroidism Eustachian tube dysfunction, bilateral Lipodermatosclerosis Panniculitis of other sites Lymphedema Other lymphedema Preoperative examination- Primary Preoperative examination, unspecified Diabetic polyneuropathy associated with type 2 diabetes mellitus (HCC) Essential hypertension Unspecified essential hypertension Peripheral venous insufficiency Unspecified venous (peripheral) insufficiency 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lbuminuria, without long-term current use of insulin (HCC) (HCC) History of cancer of right breast Lipodermatosclerosis Panniculitis of other sites Carpal tunnel syndrome on left Carpal tunnel syndrome Type 2 diabetes mellitus with peripheral neuropathy (HCC)- Primary Essential hypertension Unspecified essential hypertension Hyperlipidemia, unspecified hyperlipidemia type Acquired hypothyroidism Unspecified hypothyroidism [facility] Diagnosis Ductal carcinoma in situ (DCIS) of right breast Encounter for screening mammogram for malignant neoplasm of breast [facility] Ductal carcinoma in situ (DCIS) of right breast- Primary Encounter for screening mammogram for malignant neoplasm of breast Other screening mammogram [facility] Leg swelling- Primary Swelling of limb Lipodermatosclerosis of both lower extremities Lymphedema Other lymphedema Chronic venous insufficiency Unspecified venous (peripheral) insufficiency [facility] Controlled type 2 diabetes mellitus without complication, without long-term current use of insulin (HCC)- Primary Eustachian tube dysfunction, bilateral Need for vaccination Need for prophylactic vaccination and inoculation against unspecified single disease Hypertension goal BP (blood pressure) < 150/90 Unspecified essential hypertension Wound of left lower extremity, subsequent encounter LVH (left ventricular hypertrophy) Cardiomegaly Hypothyroidism, unspecified type Type 2 diabetes mellitus with peripheral neuropathy (HCC) Hypertension goal BP (blood pressure) < 150/90 Unspecified essential hypertension Hypothyroidism, adult Other specified acquired hypothyroidism Eustachian tube dysfunction, bilateral Lipodermatosclerosis Panniculitis of other sites Lymphedema Other lymphedema Preoperative examination- Primary Preoperative examination, unspecified Diabetic polyneuropathy associated with type 2 diabetes mellitus (HCC) Essential hypertension Unspecified essential hypertension Peripheral venous insufficiency Unspecified venous (peripheral) insufficiency 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lbuminuria, without long-term current use of insulin (HCC) (HCC) History of cancer of right breast Lipodermatosclerosis Panniculitis of other sites Carpal tunnel syndrome on left Carpal tunnel syndrome Onychomycosis- Primary Dermatophytosis of nail Pain in toe of right foot Pain in limb Pain in toe of left foot Pain in limb Type 2 diabetes mellitus with peripheral neuropathy (HCC) Venous insufficiency Unspecified venous (peripheral) insufficiency Callus of foot Corns and callosities [facility] Diagnosis Controlled type 2 diabetes mellitus without complication, without long-term current use of insulin (HCC)- Primary Eustachian tube dysfunction, bilateral Need for vaccination Need for prophylactic vaccination and inoculation against unspecified single disease Hypertension goal BP (blood pressure) < 150/90 Unspecified essential hypertension Wound of left lower extremity, subsequent encounter LVH (left ventricular hypertrophy) Cardiomegaly Hypothyroidism, unspecified type Type 2 diabetes mellitus with peripheral neuropathy (HCC) Hypertension goal BP (blood pressure) < 150/90 Unspecified essential hypertension Hypothyroidism, adult Other specified acquired hypothyroidism Eustachian tube dysfunction, bilateral Lipodermatosclerosis Panniculitis of other sites Lymphedema Other lymphedema Preoperative examination- Primary Preoperative examination, unspecified Diabetic polyneuropathy associated with type 2 diabetes mellitus (HCC) Essential hypertension Unspecified essential hypertension Peripheral venous insufficiency Unspecified venous (peripheral) insufficiency 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lbuminuria, without long-term current use of insulin (HCC) (HCC) History of cancer of right breast Lipodermatosclerosis Panniculitis of other sites Carpal tunnel syndrome on left Carpal tunnel syndrome Type 2 diabetes mellitus with peripheral neuropathy (HCC)- Primary Diabetic polyneuropathy associated with type 2 diabetes mellitus (HCC) Class 2 severe obesity with serious comorbidity and body mass index (BMI) of 36.0 to 36.9 in adult, unspecified obesity type (HCC) documented in this encounter [facility] note* Diagnosis Controlled type 2 diabetes mellitus without complication, without long-term current use of insulin (HCC)- Primary Eustachian tube dysfunction, bilateral Need for vaccination Need for prophylactic vaccination and inoculation against unspecified single disease Hypertension goal BP (blood pressure) < 150/90 Unspecified essential hypertension Wound of left lower extremity, subsequent encounter LVH (left ventricular hypertrophy) Cardiomegaly Hypothyroidism, unspecified type Type 2 diabetes mellitus with peripheral neuropathy (HCC) Hypertension goal BP (blood pressure) < 150/90 Unspecified essential hypertension Hypothyroidism, adult Other specified acquired hypothyroidism Eustachian tube dysfunction, bilateral Lipodermatosclerosis Panniculitis of other sites Lymphedema Other lymphedema Preoperative examination- Primary Preoperative examination, unspecified Diabetic polyneuropathy associated with type 2 diabetes mellitus (HCC) Essential hypertension Unspecified essential hypertension Peripheral venous insufficiency Unspecified venous (peripheral) insufficiency 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lbuminuria, without long-term current use of insulin (HCC) (HCC) History of cancer of right breast Lipodermatosclerosis Panniculitis of other sites Carpal tunnel syndrome on left Carpal tunnel syndrome Acute non-recurrent sinusitis, unspecified location- Primary documented in this encounter [facility] note* Diagnosis Controlled type 2 diabetes mellitus without complication, without long-term current use of insulin (HCC)- Primary Eustachian tube dysfunction, bilateral Need for vaccination Need for prophylactic vaccination and inoculation against unspecified single disease Hypertension goal BP (blood pressure) < 150/90 Unspecified essential hypertension Wound of left lower extremity, subsequent encounter LVH (left ventricular hypertrophy) Cardiomegaly Hypothyroidism, unspecified type Type 2 diabetes mellitus with peripheral neuropathy (HCC) Hypertension goal BP (blood pressure) < 150/90 Unspecified essential hypertension Hypothyroidism, adult Other specified acquired hypothyroidism Eustachian tube dysfunction, bilateral Lipodermatosclerosis Panniculitis of other sites Lymphedema Other lymphedema Preoperative examination- Primary Preoperative examination, unspecified Diabetic polyneuropathy associated with type 2 diabetes mellitus (HCC) Essential hypertension Unspecified essential hypertension Peripheral venous insufficiency Unspecified venous (peripheral) insufficiency 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lbuminuria, without long-term current use of insulin (HCC) (HCC) History of cancer of right breast Lipodermatosclerosis Panniculitis of other sites Carpal tunnel syndrome on left Carpal tunnel syndrome Vasomotor rhinitis- Primary Allergic rhinitis, cause unspecified Post-nasal drip Postnasal drip Obesity, Class III, BMI >= 40 Morbid obesity Stage 3a chronic kidney disease (HCC) Type 2 diabetes mellitus with peripheral neuropathy (HCC) Weight gain Abnormal weight gain Malaise Other malaise and fatigue Increased abdominal girth Abdominal or pelvic swelling, mass or lump, unspecified site Cardiac arrhythmia, unspecified cardiac arrhythmia type Edema due to malnutrition, due to unspecified malnutrition type (HCC) Palpitations Dyspnea, unspecified type [facility] Diagnosis Controlled type 2 diabetes mellitus without complication, without long-term current use of insulin (HCC)- Primary Eustachian tube dysfunction, bilateral Need for vaccination Need for prophylactic vaccination and inoculation against unspecified single disease Hypertension goal BP (blood pressure) < 150/90 Unspecified essential hypertension Wound of left lower extremity, subsequent encounter LVH (left ventricular hypertrophy) Cardiomegaly Hypothyroidism, unspecified type Type 2 diabetes mellitus with peripheral neuropathy (HCC) Hypertension goal BP (blood pressure) < 150/90 Unspecified essential hypertension Hypothyroidism, adult Other specified acquired hypothyroidism Eustachian tube dysfunction, bilateral Lipodermatosclerosis Panniculitis of other sites Lymphedema Other lymphedema Preoperative examination- Primary Preoperative examination, unspecified Diabetic polyneuropathy associated with type 2 diabetes mellitus (HCC) Essential hypertension Unspecified essential hypertension Peripheral venous insufficiency Unspecified venous (peripheral) insufficiency 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lbuminuria, without long-term current use of insulin (HCC) (HCC) History of cancer of right breast Lipodermatosclerosis Panniculitis of other sites Carpal tunnel syndrome on left Carpal tunnel syndrome Hospital discharge follow-up- Primary Other follow-up examination Atrial fibrillation, unspecified type (HCC) Acute on chronic heart failure with preserved ejection fraction (HCC) Itching Unspecified pruritic disorder documented in this encounter [facility]* Diagnosis Controlled type 2 diabetes mellitus without complication, without long-term current use of insulin (HCC)- Primary Eustachian tube dysfunction, bilateral Need for vaccination Need for prophylactic vaccination and inoculation against unspecified single disease Hypertension goal BP (blood pressure) < 150/90 Unspecified essential hypertension Wound of left lower extremity, subsequent encounter LVH (left ventricular hypertrophy) Cardiomegaly Hypothyroidism, unspecified type Type 2 diabetes mellitus with peripheral neuropathy (HCC) Hypertension goal BP (blood pressure) < 150/90 Unspecified essential hypertension Hypothyroidism, adult Other specified acquired hypothyroidism Eustachian tube dysfunction, bilateral Lipodermatosclerosis Panniculitis of other sites Lymphedema Other lymphedema Preoperative examination- Primary Preoperative examination, unspecified Diabetic polyneuropathy associated with type 2 diabetes mellitus (HCC) Essential hypertension Unspecified essential hypertension Peripheral venous insufficiency Unspecified venous (peripheral) insufficiency 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lbuminuria, without long-term current use of insulin (HCC) History of cancer of right breast Lipodermatosclerosis Panniculitis of other sites Carpal tunnel syndrome on left Carpal tunnel syndrome 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) Class 2 severe obesity with serious comorbidity and body mass index (BMI) of 36.0 to 36.9 in adult, unspecified obesity type (HCC) [facility] Diagnosis Controlled type 2 diabetes mellitus without complication, without long-term current use of insulin (HCC)- Primary Eustachian tube dysfunction, bilateral Need for vaccination Need for prophylactic vaccination and inoculation against unspecified single disease Hypertension goal BP (blood pressure) < 150/90 Unspecified essential hypertension Wound of left lower extremity, subsequent encounter LVH (left ventricular hypertrophy) Cardiomegaly Hypothyroidism, unspecified type Type 2 diabetes mellitus with peripheral neuropathy (HCC) Hypertension goal BP (blood pressure) < 150/90 Unspecified essential hypertension Hypothyroidism, adult Other specified acquired hypothyroidism Eustachian tube dysfunction, bilateral Lipodermatosclerosis Panniculitis of other sites Lymphedema Other lymphedema Preoperative examination- Primary Preoperative examination, unspecified Diabetic polyneuropathy associated with type 2 diabetes mellitus (HCC) Essential hypertension Unspecified essential hypertension Peripheral venous insufficiency Unspecified venous (peripheral) insufficiency 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lbuminuria, without long-term current use of insulin (HCC) History of cancer of right breast Lipodermatosclerosis Panniculitis of other sites Carpal tunnel syndrome on left Carpal tunnel syndrome Onychomycosis- Primary Dermatophytosis of nail Pain in toe of right foot Pain in limb Pain in toe of left foot Pain in limb Type 2 diabetes mellitus with peripheral neuropathy (HCC) [facility] Diagnosis Controlled type 2 diabetes mellitus without complication, without long-term current use of insulin (HCC)- Primary Eustachian tube dysfunction, bilateral Need for vaccination Need for prophylactic vaccination and inoculation against unspecified single disease Hypertension goal BP (blood pressure) < 150/90 Unspecified essential hypertension Wound of left lower extremity, subsequent encounter LVH (left ventricular hypertrophy) Cardiomegaly Hypothyroidism, unspecified type Type 2 diabetes mellitus with peripheral neuropathy (HCC) Hypertension goal BP (blood pressure) < 150/90 Unspecified essential hypertension Hypothyroidism, adult Other specified acquired hypothyroidism Eustachian tube dysfunction, bilateral Lipodermatosclerosis Panniculitis of other sites Lymphedema Other lymphedema Preoperative examination- Primary Preoperative examination, unspecified Diabetic polyneuropathy associated with type 2 diabetes mellitus (HCC) Essential hypertension Unspecified essential hypertension Peripheral venous insufficiency Unspecified venous (peripheral) insufficiency 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lbuminuria, without long-term current use of insulin (HCC) History of cancer of right breast Lipodermatosclerosis Panniculitis of other sites Carpal tunnel syndrome on left Carpal tunnel syndrome Type 2 diabetes mellitus with peripheral neuropathy (HCC) Hypothyroidism, adult Other specified acquired hypothyroidism Diabetic polyneuropathy associated with type 2 diabetes mellitus (HCC) Class 2 severe obesity with serious comorbidity and body mass index (BMI) of 36.0 to 36.9 in adult, unspecified obesity type (HCC) Essential (primary) hypertension Unspecified essential hypertension Paroxysmal atrial fibrillation (HCC) Atrial fibrillation [facility] Diagnosis Controlled type 2 diabetes mellitus without complication, without long-term current use of insulin (HCC)- Primary Eustachian tube dysfunction, bilateral Need for vaccination Need for prophylactic vaccination and inoculation against unspecified single disease Hypertension goal BP (blood pressure) < 150/90 Unspecified essential hypertension Wound of left lower extremity, subsequent encounter LVH (left ventricular hypertrophy) Cardiomegaly Hypothyroidism, unspecified type Type 2 diabetes mellitus with peripheral neuropathy (HCC) Hypertension goal BP (blood pressure) < 150/90 Unspecified essential hypertension Hypothyroidism, adult Other specified acquired hypothyroidism Eustachian tube dysfunction, bilateral Lipodermatosclerosis Panniculitis of other sites Lymphedema Other lymphedema Preoperative examination- Primary Preoperative examination, unspecified Diabetic polyneuropathy associated with type 2 diabetes mellitus (HCC) Essential hypertension Unspecified essential hypertension Peripheral venous insufficiency Unspecified venous (peripheral) insufficiency 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lbuminuria, without long-term current use of insulin (HCC) History of cancer of right breast Lipodermatosclerosis Panniculitis of other sites Carpal tunnel syndrome on left Carpal tunnel syndrome Hyperlipidemia, unspecified hyperlipidemia type documented in this encounter [facility] for referral (narrative)* Diagnostic Procedure Only (Routine) - Closed Specialty Diagnoses / Procedures Referred By Contac t Referred To Contact XR IMAGING Diagnoses Pain Procedures XR HAND GENERAL 3V PA/LAT/OBL LEFT RADEX HAND MINIMUM [address] [place] [address] Referral ID Status Reason Start Date Expiration Date V isits Requested Visits Authorized [id number] Closed Auto-Generate d Referral 12/06/2023 11/20/2024 1 1 [facility] for referral (narrative)No reason for referral information availableWCleveland [facility] Work Phone: Summary Purpose Family History No Family History Records Found Relationship Condition Age at Onset Recorded Date/T korina Unknown Family History?Cancer Unknown Novemb er 2016 8:56pm Family History?Cancer Unknown Novemb er 2016 8:56pm Family History?Cance r, Diabetes, Heart Disease, Hypertension Unknown September 30, 2017 8:56pm Family History?Diabe abimael, Heart Disease Unknown September 30, 2017 8:56pm Advance Directives No Advanced Directives Records FoundDocuments on File Type Date Recorded 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 No January 08, 2025 4:29pm Advance Directive Response Recorded Date/ Time Living Will No January 08 4:29pm Do you have a Healthcare Power of Filler Block Inserter Remover? No January 08, 2025 4:29pm Do you have a Healthcare Power of Filler Block Inserter Remover? No April 16, 2025 11:25am Reason for Referral Specialty Diagnoses / Procedures Referred By Contac t Referred To Contact Podiatry Diagnoses Type 2 diabetes mellitus with peripheral neuropathy (HCC) Procedures CONSULT TO PODIATRY OFFICE/OUTPATIENT [facility] 60-74 MINUTES Jeana Guerra MD [address] [place] [address] Referral ID Status Reason Start Date Expiration Date Visits Requested Visits Authorized [id number] Authorized PCP Requested Referral 03/22/2022 03/22/2023 1 1 Specialty Diagnoses / Procedures Referred By Contac t Referred To Contact Diagnoses Ductal carcinoma in situ (DCIS) of right breast Encounter for screening mammogram for malignant neoplasm of breast Procedures MAMMO SCREENING WITH DAVION BILATERAL Amy Carreon, WIRE INSPECTOR-WATCH CRYSTAL CUTTER [address], [address] [place] [address] Referral ID Status Reason Start Date Expiration Date V isits Requested Visits Authorized [id number] New Request 08/13/2021 09/07/2022 1 1 Specialty Diagnoses / Procedures Referred By Contac t Referred To Contact Vascular Surgery Diagnoses Lipodermatosclerosis of both lower extremities Procedures CONSULT TO VASCULAR SURGERY OFFICE/OUTPATIENT [facility] 60-74 MINUTES Jeana Guerra MD [address] [place] [address] Referral ID Status Reason Start Date Expiration Date Visits Requested Visits Authorized [id number] Authorized PCP Requested Referral 2 09/30/2023 1 1 Specialty Diagnoses / Procedures Referred By Contac t Referred To Contact Diagnoses Leg swelling Lipodermatosclerosis of both lower extremities Chronic venous insufficiency Lymphedema Abdominal pannus Leg cramps Pain in both lower extremities Bruit of left carotid artery Procedures VASC DUPLEX CAROTID BILATERAL Aubrey Kelley, DO [address] [place] [address] Referral ID Status Reason Start Date Expiration Date V isits Requested Visits Authorized [id number] New Request 01/24/2023 02/18/2024 1 1 Specialty Diagnoses / Procedures Referred By Contac t Referred To Contact Diagnoses Leg swelling Lipodermatosclerosis of both lower extremities Chronic venous insufficiency Lymphedema Abdominal pannus Leg cramps Procedures VASC DUPLEX VENOUS WITH REFLUX BILATERAL LOWER Aubrey Kelley, DO [address] [place] [address] Referral ID Status Reason Start Date Expiration Date V isits Requested Visits Authorized [id number] New Request 01/24/2023 02/18/2024 1 1 Specialty Diagnoses / Procedures Referred By Contac t Referred To Contact Diagnoses Leg swelling Lipodermatosclerosis of both lower extremities Chronic venous insufficiency Lymphedema Abdominal pannus Leg cramps Aubrey Kelley, DO [address] [place] [address] Gordy Carlton MD [address] [address] Referral ID Status Reason Start Date Expiration Date V isits Requested Visits Authorized [id number] New Request 01/24/2023 02/18/2024 1 1 Referral ID Status Reason Start Date Expiration Date V isits Requested Visits Authorized [id number] New Request 08/30/2022 09/24/2023 1 1 Specialty Diagnoses / Procedures Referred By Contac t Referred To Contact Orthopedics Diagnoses Carpal tunnel syndrome of left wrist Procedures CONSULT TO ORTHOPAEDICS OFFICE/OUTPATIENT NEW HIGH MDM 60-74 MINUTES Greta Arreola APRN.WATCH CRYSTAL CUTTER [address] [place] [address] Referral ID Status Reason Start Date Expiration Date Visits Requested Visits Authorized [id number] Authorized PCP Requested Referral 09/29/2023 09/28/2024 1 1 Specialty Diagnoses / Procedures Referred By Page t Referred To Contact Diagnoses Carpal tunnel syndrome on left Procedures REFER TO PACC - PRE ANESTHESIA CONSULTATION CLINIC OFFICE/OUTPATIENT [facility] 60 MINUTES Falguni Hall PA-C [address] [place] [address] Referral ID Status Reason Start Date Expiration Date Visits Requested Visits Authorized [id number] Authorized PCP Requested Referral 12/28/2023 12/27/2024 1 1 Referral ID Status Reason Start Date Expiration Date V isits Requested Visits Authorized [id number] Pending Review 09/05/2023 09/29/2024 1 1 Referral ID Status Reason Start Date Expiration Date V isits Requested Visits Authorized [id number] Pending Review 09/10/2024 10/05/2025 1 1 Chief Complaint and Reason for Visit Chief Complaint wound DIZZINESS/HEARING LOSS *ATTENTION IAC* Reason for Visit Cardiomegaly Generalized osteoarthrosis History of lumbar laminectomy History of lumpectomy of right breast History of right breast cancer History 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 Hyperpigmentation of skin Left leg swelling Lipodermatosclerosis of both lower extremities Right leg swelling [id number] Venous stasis ulcer Chronic venous insufficiency Dyslipidemia Hypertension Hypothyroidism Type 2 diabetes mellitus 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 Chief Complaint Admit Date NEW ONSET AFIB, HF January 08, 2025 12:50pm NEW ONSET AFIB, HF January 09, 2025 8:29am NEW ONSET AFIB, HF January 09, 2025 9:36am NEW ONSET AFIB, HF January 09, 2025 3:21pm NEW ONSET AFIB, HF January 10, 2025 8:48am NEW ONSET AFIB, HF January 10, 2025 9:09am NEW ONSET AFIB, HF January 11, 2025 8:25am NEW ONSET AFIB, HF January 11, 2025 8:45am [facility] 01/11 NEW ONSET AFIB January 23, 2025 10:50am INT LAB ORDERS January 23, 2025 12:1 6pm XRAY CHEST PA & LAT January 31, 2025 12: 36pm Reason for Visit Admit Date Atrial fibrillation with rapid ventricul ar response January 08, 2025 12:50pm CHF (congestive heart failure) January 08, 2025 12:50pm Hypertension January 08, 2025 12:50pm Hypothyroidism January 08, 2025 12:50pm Type 2 diabetes mellitus January 08, 2025 12:50pm Pleural effusion on right January 08, 2025 12:50pm Atrial fibrillation with rapid ventricul ar response January 23, 2025 10:50am Pleural effusion January 23, 2025 10:5 0am Dyslipidemia January 23, 2025 10:5 0am Hypertension January 23, 2025 10:5 0am Chief Complaint Admit Date NEW ONSET AFIB, HF January 08, 2025 12:50pm NEW ONSET AFIB, HF January 09, 2025 8:29am NEW ONSET AFIB, HF January 09, 2025 9:36am NEW ONSET AFIB, HF January 09, 2025 3:21pm NEW ONSET AFIB, HF January 10, 2025 8:48am NEW ONSET AFIB, HF January 10, 2025 9:09am NEW ONSET AFIB, HF January 11, 2025 8:25am NEW ONSET AFIB, HF January 11, 2025 8:45am [facility] 01/11 NEW ONSET AFIB January 23, 2025 10:50am INT LAB ORDERS January 23, 2025 12:1 6pm XRAY CHEST PA & LAT January 31, 2025 12: 36pm CHF EXACERBATION April 16, 2025 1:59p m Additional Source Comments INFORMATION SOURCE (unrecogn ized section and content) DATE CREATED AUTHOR 05/11/2018 [facility] DATE CREATED AUTHOR AUTHOR'S ORGANIZ ATION 09/29/2024 [facility] DATE CREATED AUTHOR AUTHOR'S ORGANIZ ATION 04/22/2025 [facility] DATE CREATED AUTHOR AUTHOR'S ORGANIZ ATION 04/26/2025 [facility] Source Comments (unrecognize d section and content) In the event this informatio n is protected by the Federal Confidentiality of Alcohol and Drug Abuse Patient Records regulations: The Federal rules restrict any use of the information to criminally investigate or prosecute any alcohol or drug abuse patient.[facility] the event this information is protected by the Federal Confidentiality of Alcohol and Drug Abuse Patient Records regulations: The Federal rules restrict any use of the information to criminally investigate or prosecute any alcohol or drug abuse patient.[facility] HospitalIn the event this information is protected by the Federal Confidentiality of Alcohol and Drug Abuse Patient Records regulations: The Federal rules restrict any use of the information to criminally investigate or prosecute any alcohol or drug abuse patient.[facility] HospitalIn the event this information is protected by the Federal Confidentiality of Alcohol and Drug Abuse Patient Records regulations: The Federal rules restrict any use of the information to criminally investigate or prosecute any alcohol or drug abuse patient.[facility] HospitalIn the event this information is protected by the Federal Confidentiality of Alcohol and Drug Abuse Patient Records regulations: The Federal rules restrict any use of the information to criminally investigate or prosecute any alcohol or drug abuse patient.[facility] HospitalIn the event this information is protected by the Federal Confidentiality of Alcohol and Drug Abuse Patient Records regulations: The Federal rules restrict any use of the information to criminally investigate or prosecute any alcohol or drug abuse patient.[facility] HospitalIn the event this information is protected by the Federal Confidentiality of Alcohol and Drug Abuse Patient Records regulations: The Federal rules restrict any use of the information to criminally investigate or prosecute any alcohol or drug abuse patient.[facility] HospitalIn the event this information is protected by the Federal Confidentiality of Alcohol and Drug Abuse Patient Records regulations: The Federal rules restrict any use of the information to criminally investigate or prosecute any alcohol or drug abuse patient.[facility]In the event this information is protected by the Federal Confidentiality of Alcohol and Drug Abuse Patient Records regulations: The Federal rules restrict any use of the information to criminally investigate or prosecute any alcohol or drug abuse patient.[facility] HospitalIn the event this information is protected by the Federal Confidentiality of Alcohol and Drug Abuse Patient Records regulations: The Federal rules restrict any use of the information to criminally investigate or prosecute any alcohol or drug abuse patient.[facility] HospitalIn the event this information is protected by the Federal Confidentiality of Alcohol and Drug Abuse Patient Records regulations: The Federal rules restrict any use of the information to criminally investigate or prosecute any alcohol or drug abuse patient.[facility] HospitalIn the event this information is protected by the Federal Confidentiality of Alcohol and Drug Abuse Patient Records regulations: The Federal rules restrict any use of the information to criminally investigate or prosecute any alcohol or drug abuse patient.[facility] HospitalIn the event this information is protected by the Federal Confidentiality of Alcohol and Drug Abuse Patient Records regulations: The Federal rules restrict any use of the information to criminally investigate or prosecute any alcohol or drug abuse patient.[facility] HospitalIn the event this information is protected by the Federal Confidentiality of Alcohol and Drug Abuse Patient Records regulations: The Federal rules restrict any use of the information to criminally investigate or prosecute any alcohol or drug abuse patient.[facility] HospitalIn the event this information is protected by the Federal Confidentiality of Alcohol and Drug Abuse Patient Records regulations: The Federal rules restrict any use of the information to criminally investigate or prosecute any alcohol or drug abuse patient.[facility] HospitalIn the event this information is protected by the Federal Confidentiality of Alcohol and Drug Abuse Patient Records regulations: The Federal rules restrict any use of the information to criminally investigate or prosecute any alcohol or drug abuse patient.[facility] the event this information is protected by the Federal Confidentiality of Alcohol and Drug Abuse Patient Records regulations: The Federal rules restrict any use of the information to criminally investigate or prosecute any alcohol or drug abuse patient.[facility]In the event this information is protected by the Federal Confidentiality of Alcohol and Drug Abuse Patient Records regulations: The Federal rules restrict any use of the information to criminally investigate or prosecute any alcohol or drug abuse patient.[facility] HospitalIn the event this information is protected by the Federal Confidentiality of Alcohol and Drug Abuse Patient Records regulations: The Federal rules restrict any use of the information to criminally investigate or prosecute any alcohol or drug abuse patient.[facility] HospitalIn the event this information is protected by the Federal Confidentiality of Alcohol and Drug Abuse Patient Records regulations: The Federal rules restrict any use of the information to criminally investigate or prosecute any alcohol or drug abuse patient.[facility] HospitalIn the event this information is protected by the Federal Confidentiality of Alcohol and Drug Abuse Patient Records regulations: The Federal rules restrict any use of the information to criminally investigate or prosecute any alcohol or drug abuse patient.[facility] HospitalIn the event this information is protected by the Federal Confidentiality of Alcohol and Drug Abuse Patient Records regulations: The Federal rules restrict any use of the information to criminally investigate or prosecute any alcohol or drug abuse patient.[facility] HospitalIn the event this information is protected by the Federal Confidentiality of Alcohol and Drug Abuse Patient Records regulations: The Federal rules restrict any use of the information to criminally investigate or prosecute any alcohol or drug abuse patient.[facility] HospitalIn the event this information is protected by the Federal Confidentiality of Alcohol and Drug Abuse Patient Records regulations: The Federal rules restrict any use of the information to criminally investigate or prosecute any alcohol or drug abuse patient.[facility] HospitalIn the event this information is protected by the Federal Confidentiality of Alcohol and Drug Abuse Patient Records regulations: The Federal rules restrict any use of the information to criminally investigate or prosecute any alcohol or drug abuse patient.[facility] HospitalIn the event this information is protected by the Federal Confidentiality of Alcohol and Drug Abuse Patient Records regulations: The Federal rules restrict any use of the information to criminally investigate or prosecute any alcohol or drug abuse patient.[facility] HospitalIn the event this information is protected by the Federal Confidentiality of Alcohol and Drug Abuse Patient Records regulations: The Federal rules restrict any use of the information to criminally investigate or prosecute any alcohol or drug abuse patient.[facility] HospitalIn the event this information is protected by the Federal Confidentiality of Alcohol and Drug Abuse Patient Records regulations: The Federal rules restrict any use of the information to criminally investigate or prosecute any alcohol or drug abuse patient.[facility]In the event this information is protected by the Federal Confidentiality of Alcohol and Drug Abuse Patient Records regulations: The Federal rules restrict any use of the information to criminally investigate or prosecute any alcohol or drug abuse patient.[facility] HospitalIn the event this information is protected by the Federal Confidentiality of Alcohol and Drug Abuse Patient Records regulations: The Federal rules restrict any use of the information to criminally investigate or prosecute any alcohol or drug abuse patient.[facility] HospitalIn the event this information is protected by the Federal Confidentiality of Alcohol and Drug Abuse Patient Records regulations: The Federal rules restrict any use of the information to criminally investigate or prosecute any alcohol or drug abuse patient.[facility] HospitalIn the event this information is protected by the Federal Confidentiality of Alcohol and Drug Abuse Patient Records regulations: The Federal rules restrict any use of the information to criminally investigate or prosecute any alcohol or drug abuse patient.[facility] HospitalIn the event this information is protected by the Federal Confidentiality of Alcohol and Drug Abuse Patient Records regulations: The Federal rules restrict any use of the information to criminally investigate or prosecute any alcohol or drug abuse patient.[facility] HospitalIn the event this information is protected by the Federal Confidentiality of Alcohol and Drug Abuse Patient Records regulations: The Federal rules restrict any use of the information to criminally investigate or prosecute any alcohol or drug abuse patient.[facility] HospitalIn the event this information is protected by the Federal Confidentiality of Alcohol and Drug Abuse Patient Records regulations: The Federal rules restrict any use of the information to criminally investigate or prosecute any alcohol or drug abuse patient.[facility] HospitalIn the event this information is protected by the Federal Confidentiality of Alcohol and Drug Abuse Patient Records regulations: The Federal rules restrict any use of the information to criminally investigate or prosecute any alcohol or drug abuse patient.[facility] HospitalIn the event this information is protected by the Federal Confidentiality of Alcohol and Drug Abuse Patient Records regulations: The Federal rules restrict any use of the information to criminally investigate or prosecute any alcohol or drug abuse patient.[facility] HospitalIn the event this information is protected by the Federal Confidentiality of Alcohol and Drug Abuse Patient Records regulations: The Federal rules restrict any use of the information to criminally investigate or prosecute any alcohol or drug abuse patient.[facility] HospitalIn the event this information is protected by the Federal Confidentiality of Alcohol and Drug Abuse Patient Records regulations: The Federal rules restrict any use of the information to criminally investigate or prosecute any alcohol or drug abuse patient.[facility] HospitalIn the event this information is protected by the Federal Confidentiality of Alcohol and Drug Abuse Patient Records regulations: The Federal rules restrict any use of the information to criminally investigate or prosecute any alcohol or drug abuse patient.[facility] HospitalIn the event this information is protected by the Federal Confidentiality of Alcohol and Drug Abuse Patient Records regulations: The Federal rules restrict any use of the information to criminally investigate or prosecute any alcohol or drug abuse patient.[facility] HospitalIn the event this information is protected by the Federal Confidentiality of Alcohol and Drug Abuse Patient Records regulations: The Federal rules restrict any use of the information to criminally investigate or prosecute any alcohol or drug abuse patient.[facility] HospitalIn the event this information is protected by the Federal Confidentiality of Alcohol and Drug Abuse Patient Records regulations: The Federal rules restrict any use of the information to criminally investigate or prosecute any alcohol or drug abuse patient.[facility] HospitalIn the event this information is protected by the Federal Confidentiality of Alcohol and Drug Abuse Patient Records regulations: The Federal rules restrict any use of the information to criminally investigate or prosecute any alcohol or drug abuse patient.[facility] HospitalIn the event this information is protected by the Federal Confidentiality of Alcohol and Drug Abuse Patient Records regulations: The Federal rules restrict any use of the information to criminally investigate or prosecute any alcohol or drug abuse patient.[facility] Hospital[facility] the event this information is protected by the Federal Confidentiality of Alcohol and Drug Abuse Patient Records regulations: The Federal rules restrict any use of the information to criminally investigate or prosecute any alcohol or drug abuse patient.[facility] HospitalIn the event this information is protected by the Federal Confidentiality of Alcohol and Drug Abuse Patient Records regulations: The Federal rules restrict any use of the information to criminally investigate or prosecute any alcohol or drug abuse patient.[facility] Care Teams (unrecognized sec tion and content) Services Coordinator Relationship Specialty Start Date End Date Jeana Guerra MD [address] [facility] [place] [address] PCP - General Internal Medicine 11/29/16 Services Coordinator Relationship Specialty Start Date End Date Jeana Guerra MD [address] [facility] [place] [address] PCP - General Internal Medicine 11/29/16 Services Coordinator Relationship Specialty Start Date End Date Jeana Guerra MD [address] [facility] [place] [address] PCP - General Internal Medicine 11/29/16 Services Coordinator Relationship Specialty Start Date End Date Jeana Guerra MD [address] [facility] [place] [address] PCP - General Internal Medicine 11/29/16 Services Coordinator Relationship Specialty Start Date End Date Jeana Guerra MD [address] [facility] [place] [address] PCP - General Internal Medicine 11/29/16 Services Coordinator Relationship Specialty Start Date End Date Jeana Guerra MD [address] [facility] [place] [address] PCP - General Internal Medicine 11/29/16 Services Coordinator Relationship Specialty Start Date End Date Jeana Guerra MD [address] [facility] [place] [address] PCP - General Internal Medicine 11/29/16 Services Coordinator Relationship Specialty Start Date End Date Jeana Guerra MD [address] [facility] [place] [place] [address] PCP - General Internal Medicine 07/31/20 Avinash Barbosa MD [address] [place] [facility] [address] General Surgery 03/24/09 Roger Reynolds MD [address], [address] [place] [address] Surgeon Surgical Oncology 12/31/09 Services Coordinator Relationship Specialty Start Date End Date Jeana Guerra MD [address] [facility] [place] [address] PCP - General Internal Medicine 11/29/16 Services Coordinator Relationship Specialty Start Date End Date Jeana Guerra MD [address] [facility] [place] [address] PCP - General Internal Medicine 11/29/16 Services Coordinator Relationship Specialty Start Date End Date Jeana Guerra MD [address] [facility] [place] [address] PCP - General Internal Medicine 11/29/16 Services Coordinator Relationship Specialty Start Date End Date Jeana Guerra MD [address] [facility] [place] [address] PCP - General Internal Medicine 11/29/16 Services Coordinator Relationship Specialty Start Date End Date Jeana Guerra MD [address] [facility] [place] [address] PCP - General Internal Medicine 07/31/20 Avinash Barbosa MD [address] [place] [facility] [place] [address] General Surgery 03/24/09 Roger Reynolds MD [address] [facility] 3rd Floor, [address] [place] [address] Surgeon Surgical Oncology 12/31/09 Services Coordinator Relationship Specialty Start Date End Date Jeana Guerra MD [address] [facility] [place] [address] PCP - General Internal Medicine 11/29/16 Services Coordinator Relationship Specialty Start Date End Date Jeana Guerra MD [address] [facility] [place] [address] PCP - General Internal Medicine 11/29/16 Services Coordinator Relationship Specialty Start Date End Date Jeana Guerra MD [address] [facility] [place] [address] PCP - General Internal Medicine 11/29/16 Services Coordinator Relationship Specialty Start Date End Date Jeana Guerra MD [address] [facility] [place] [place] [address] PCP - General Internal Medicine 07/31/20 Avinash Barbosa MD [address] [facility] [place] [address] General Surgery 03/24/09 Roger Reynolds MD [address] [facility] 3rd Floor, [address] [place] [address] Surgeon Surgical Oncology 12/31/09 Services Coordinator Relationship Specialty Start Date End Date Jeana Guerra MD [address] [facility] [place] [place] [address] PCP - General Internal Medicine 07/31/20 Avinash Barbosa MD [address] [facility] [place] [address] General Surgery 03/24/09 Roger Reynolds MD [address] [facility] 3rd Floor, [address] [place] [address] Surgeon Surgical Oncology 12/31/09 Services Coordinator Relationship Specialty Start Date End Date Jeana Guerra MD [address] [place] [address] PCP - General Internal Medicine 11/29/16 Services Coordinator Relationship Specialty Start Date End Date Jeana Guerra MD [address] [place] [address] PCP - General Internal Medicine 11/29/16 Services Coordinator Relationship Specialty Start Date End Date Jeana Guerra MD [address] [place] [address] PCP - General Internal Medicine 11/29/16 Services Coordinator Relationship Specialty Start Date End Date Jeana Guerra MD [address] [place] [address] PCP - General Internal Medicine 11/29/16 Services Coordinator Relationship Specialty Start Date End Date Jeana Guerra MD [address] [place] [address] PCP - General Internal Medicine 11/29/16 Services Coordinator Relationship Specialty Start Date End Date Jeana Guerra MD [address] [place] [address] PCP - General Internal Medicine 11/29/16 Services Coordinator Relationship Specialty Start Date End Date Jeana Guerra MD [address] [place] [address] PCP - General Internal Medicine 11/29/16 Services Coordinator Relationship Specialty Start Date End Date Jeana Guerra MD [address] [facility] [place] [address] PCP - General Internal Medicine 11/29/16 Services Coordinator Relationship Specialty Start Date End Date Jeana Guerra MD [address] [facility] [place] [address] PCP - General Internal Medicine 11/29/16 Services Coordinator Relationship Specialty Start Date End Date Jeana Guerra MD [address] [facility] [place] [address] PCP - General Internal Medicine 11/29/16 Services Coordinator Relationship Specialty Start Date End Date Jeana Guerra MD [address] [facility] [place] [address] PCP - General Internal Medicine 11/29/16 Services Coordinator Relationship Specialty Start Date End Date Jeana Guerra MD [address] [facility] [place] [address] PCP - General Internal Medicine 11/29/16 Services Coordinator Relationship Specialty Start Date End Date Jeana Guerra MD [address] [facility] [place] [address] PCP - General Internal Medicine 11/29/16 Services Coordinator Relationship Specialty Start Date End Date Jeana Guerra MD [address] [facility] [place] [address] PCP - General Internal Medicine 11/29/16 Services Coordinator Relationship Specialty Start Date End Date Jeana Guerra MD [address] [facility] [place] [place] [address] PCP - General Internal Medicine 07/31/20 Avinash Barbosa MD [address] [place] [facility] [place] [address] General Surgery 03/24/09 Roger Reynolds MD [address] [facility] 3rd Floor, [address] [place] [address] Surgeon Surgical Oncology 12/31/09 Services Coordinator Relationship Specialty Start Date End Date Jeana Guerra MD [address] [facility] [place] [address] PCP - General Internal Medicine 07/31/20 Avinash Barbosa MD [address] [place] [facility] [place] [address] General Surgery 03/24/09 Roger Reynolds MD [address] [facility] 3rd Floor, [address] [place] [address] Surgeon Surgical Oncology 12/31/09 Services Coordinator Relationship Specialty Start Date End Date Jeana Guerra MD [address] [facility] [place] [address] PCP - General Internal Medicine 07/31/20 Avinash Barbosa MD [address] [place] [facility] [place] [address] General Surgery 03/24/09 Roger Reynolds MD [address] [facility] 3rd Floor, [address] [place] [address] Surgeon Surgical Oncology 12/31/09 Services Coordinator Relationship Specialty Start Date End Date Jeana Guerra MD [address] [facility] [place] [address] PCP - General Internal Medicine 11/29/16 Services Coordinator Relationship Specialty Start Date End Date Jeana Guerra MD [address] [facility] [place] [place] [address] PCP - General Internal Medicine 07/31/20 Avinash Barbosa MD [address] [place] [facility] [place] [address] General Surgery 03/24/09 Roger Reynolds MD [address], [address] [place] [address] Surgeon Surgical Oncology 12/31/09 Services Coordinator Relationship Specialty Start Date End Date Jeana Guerra MD [address] [facility] [place] [address] PCP - General Internal Medicine 11/29/16 Services Coordinator Relationship Specialty Start Date End Date Jeana Guerra MD [address] [facility] [place] [address] PCP - General Internal Medicine 11/29/16 Services Coordinator Relationship Specialty Start Date End Date Jeana Guerra MD [address] [facility] [place] [address] PCP - General Internal Medicine 07/31/20 Avinash Barbosa MD [address] [facility] [place] [address] General Surgery 03/24/09 Roger Reynolds MD [address], [address] [place] [address] Surgeon Surgical Oncology 12/31/09 Services Coordinator Relationship Specialty Start Date End Date Jeana Guerra MD [address] [place], [place] [address] PCP - General Internal Medicine 07/31/20 Avinash Barbosa MD [address] [place], [place] [address] General Surgery 03/24/09 Roger Reynolds MD [address], [address] [place] [address] Surgeon Surgical Oncology 12/31/09 Services Coordinator Relationship Specialty Start Date End Date Jeana Guerra MD [address] [place], [place] [address] PCP - General Internal Medicine 11/29/16 Rosemarie Taylor PA-C [address] [place] [address] Financial Analysis Advisor Family Medicine 10/28/24 Greta Arreola APRN.CNP [address] [place] [address] Financial Analysis Advisor Internal Medicine 10/28/24 Lindsey Camara PA-C [address] [place] [address] Financial Analysis Advisor Family Medicine 10/28/24 Services Coordinator Relationship Specialty Start Date End Date Jeana Guerra MD [address] [place] [address] PCP - General Internal Medicine 11/29/16 Rosemarie Taylor PA-C [address] [place] [address] Financial Analysis Advisor Family Medicine 10/28/24 Greta Arreola APRN.[employer] [address] [place] [address] Financial Analysis Advisor Internal Medicine 10/28/24 Lindsey Camara PA-C [address] [place] [address] Financial Analysis Advisor Family Medicine 10/28/24 Services Coordinator Relationship Specialty Start Date End Date Jeana Guerra MD [address] [place] [address] PCP - General Internal Medicine 11/29/16 Rosemarie Taylor PA-C [address] [place] [address] Financial Analysis Advisor Family Medicine 10/28/24 Greta Arreola APRN.[employer]TER [address] [place] [address] Financial Analysis Advisor Internal Medicine 10/28/24 Lindsey Camara PA-C [address] [place] [address] Financial Analysis Advisor Family Medicine 10/28/24 Services Coordinator Relationship Specialty Start Date End Date Jeana Guerra MD [address] [place] [address] PCP - General Internal Medicine 11/29/16 Rosemarie Taylor PA-C [address] [place] [address] [facility] 10/28/24 Greta Arreola APRN.W[employer] CRY[employer]AL C[employer]TER [address] [place] [address] [facility] Internal Medicine 10/28/24 Lindsey Camara PA-C [address] [place] [address] [facility] 10/28/24 Services Coordinator Relationship Specialty Start Date End Date Jeana Guerra MD [address] [place] [address] PCP - General Internal Medicine 11/29/16 Rosemarie Taylor PA-C [address] [place] [address] [facility] 10/28/24 Greta Arreola APRN.W[employer] CRY[employer] C[employer]TER [address] [place] [address] [facility] Internal Medicine 10/28/24 Lindsey Camara PA-C [address] [facility] [place] [address] [facility] 10/28/24 Team Status: Active Member Role Status Dates Dr. Jeana Guerra MD Primary Care Provider Active Team Status: Inactive Member Role Status Dates Dr. Jeana Guerra MD Primary Care Provider Active Start: January 08, 2025 End: January 11, 2025 Dr. Jey Madrid MD Emergency Provider Active S tart: January 08, 2025 End: January 11, 2025 Dr. Supa Brumfield MD Admit Provider Active Sta rt: January 08, 2025 End: January 11, 2025 Dr. Supa Brumfield MD Attending Provider Active Start: January 08, 2025 End: January 11, 2025 Dr. Gerald Alexandra MD Other Provider Active Star t: January 08, 2025 End: January 11, 2025 Team Status: Active Member Role Status Dates Dr. Jeana Guerra MD Primary Care Provider Active Start: January 09, 2025 Dr. Jey Madrid MD Emergency Provider Active S tart: January 09, 2025 Dr. Supa Brumfield MD Admit Provider Active Sta rt: January 09, 2025 Dr. Supa Brumfield MD Attending Provider Active Start: January 09, 2025 Dr. Supa Brumfield MD Other Provider Active Sta rt: January 09, 2025 Dr. Gerald Alexandra MD Other Provider Active Star t: January 09, 2025 Team Status: Active Member Role Status Dates Dr. Jeana Guerra MD Primary Care Provider Active Start: January 09, 2025 Dr. Jey Madrid MD Emergency Provider Active S tart: January 09, 2025 Dr. Supa Brumfield MD Admit Provider Active Sta rt: January 09, 2025 Dr. Supa Brumfield MD Other Provider Active Sta rt: January 09, 2025 Dr. Gerald Alexandra MD Attending Provider Active Start: January 09, 2025 Dr. Gerald Alexandra MD Other Provider Active Star t: January 09, 2025 Team Status: Active Member Role Status Dates Dr. Jeana Guerra MD Primary Care Provider Active Start: January 09, 2025 Dr. Jey Madrid MD Emergency Provider Active S tart: January 09, 2025 Dr. Supa Brumfield MD Admit Provider Active Sta rt: January 09, 2025 Dr. Supa Brumfield MD Other Provider Active Sta rt: January 09, 2025 Dr. Gerald Alexandra MD Other Provider Active Star t: January 09, 2025 CHRISTIANO Jordan Attending Provider Active S tart: January 09, 2025 Team Status: Active Member Role Status Dates Dr. Jeana Guerra MD Primary Care Provider Active Start: January 10, 2025 Dr. Jey Madrid MD Emergency Provider Active S tart: January 10, 2025 Dr. Supa Brumfield MD Admit Provider Active Sta rt: January 10, 2025 Dr. Supa Brumfield MD Attending Provider Active Start: January 10, 2025 Dr. Supa Brumfield MD Other Provider Active Sta rt: January 10, 2025 Dr. Gerald Alexandra MD Other Provider Active Star t: January 10, 2025 Team Status: Active Member Role Status Dates Dr. Jeana Guerra MD Primary Care Provider Active Start: January 10, 2025 Dr. Jey Madrid MD Emergency Provider Active S tart: January 10, 2025 Dr. Supa Brumfield MD Admit Provider Active Sta rt: January 10, 2025 Dr. Supa Brumfield MD Other Provider Active Sta rt: January 10, 2025 Dr. Gerald Alexandra MD Attending Provider Active Start: January 10, 2025 Dr. Gerald Alexandra MD Other Provider Active Star t: January 10, 2025 Team Status: Active Member Role Status Dates Dr. Jeana Guerra MD Primary Care Provider Active Start: January 11, 2025 Dr. Jey Madrid MD Emergency Provider Active S tart: January 11, 2025 Dr. Supa Brumfield MD Admit Provider Active Sta rt: January 11, 2025 Dr. Supa Brumfield MD Other Provider Active Sta rt: January 11, 2025 Dr. Gerald Alexandra MD Other Provider Active Star t: January 11, 2025 Aby Ortega PA, PA Attending Provider Active Start: January 11, 2025 Team Status: Active Member Role Status Dates Dr. Jeana Guerra MD Primary Care Provider Active Start: January 11, 2025 Dr. Jey Madrid MD Emergency Provider Active S tart: January 11, 2025 Dr. Supa Brumfield MD Admit Provider Active Sta rt: January 11, 2025 Dr. Supa Brumfield MD Attending Provider Active Start: January 11, 2025 Dr. Supa Brumfield MD Other Provider Active Sta rt: January 11, 2025 Dr. Gerald Alexandra MD Other Provider Active Star t: January 11, 2025 Team Status: Inactive Member Role Status Dates Dr. Jeana Guerra MD Primary Care Provider Active Start: January 23, 2025 End: January 23, 2025 Dr. Jeana Guerra MD Referring Provider Active Start: January 23, 2025 End: January 23, 2025 DAVIDSON Lomeli Attending Provider Active St art: January 23, 2025 End: January 23, 2025 Team Status: Inactive Member Role Status Dates Dr. Jeana Guerra MD Primary Care Provider Active Start: January 23, 2025 End: January 23, 2025 DAVIDSON Lomeli Attending Provider Active St art: January 23, 2025 End: January 23, 2025 DAVIDSON Lomeli Referring Provider Active St art: January 23, 2025 End: January 23, 2025 Team Status: Active Member Role Status Dates Dr. Jeana Guerra MD Primary Care Provider Active Start: January 31, 2025 DAVIDSON Lomeli Attending Provider Active St art: January 31, 2025 DAVIDSON Lomeli Referring Provider Active St art: January 31, 2025 Team Status: Inactive Member Role Status Dates Dr. Jeana Guerra MD Primary Care Provider Active Start: January 31, 2025 End: January 31, 2025 DAVIDSON Lomeli Attending Provider Active St art: January 31, 2025 End: January 31, 2025 DAVIDSON Lomeli Referring Provider Active St art: January 31, 2025 End: January 31, 2025 Services Coordinator Relationship Specialty Start Date End Date Jeana Guerra MD [address] [place] [address] PCP - General Internal Medicine 11/29/16 Greta Arreola APRN.[employer] C[employer]TER [address] [place] [address] Financial Analysis Advisor Internal Medicine 10/28/24 Services Coordinator Relationship Specialty Start Date End Date Jeana Guerra MD [address] [place] [address] PCP - General Internal Medicine 11/29/16 Greta Arreola APRN.W[employer] C[employer]TER [address] [place] [address] Financial Analysis Advisor Internal Medicine 10/28/24 Services Coordinator Relationship Specialty Start Date End Date Jeana Guerra MD [address] [facility] [place] [address] PCP - General Internal Medicine 11/29/16 Greta Arreola APRN.WATCH CRYSTAL CUTTER [address] [facility] [place] [address] Financial Analysis Advisor Internal Medicine 10/28/24 Services Coordinator Relationship Specialty Start Date End Date Jeana Guerra MD [address] [facility] [place] [address] PCP - General Internal Medicine 11/29/16 Greta Arreola APRN.WATCH CRYSTAL CUTTER [address] [place] [address] Financial Analysis Advisor Internal Medicine 10/28/24 Team Status: Active Member Role Status Dates Dr. Jeana Guerra MD Primary Care Provider Active Start: April 16, 2025 Dr. Nathan Castanon , Emergency Provider Activ e Start: April 16, 2025 Dr. Ras Blas , Admit Provider Active Star t: April 16, 2025 Dr. Ras Blas , Attending Provider Active Start: April 16, 2025 Dr. Ras Blas , Referring Provider Active Start: April 16, 2025 Services Coordinator Relationship Specialty Start Date End Date Jeana Guerra MD [address] [facility] [place] [id number] PCP - General Internal Medicine 11/29/16 Greta Arreola APRN.WATCH CRYSTAL CUTTER [address] [place], [place] [id number] Financial Analysis Advisor Internal Medicine 10/28/24 Reason for Visit (unrecogniz ed section and content) Reason Comments Established Patient 6 month follow up- m ed refills Reason Comments Established Patient Diabetic Foot Care Specialty Diagnoses / Procedures Referred By Page campos Referred To Contact Podiatry Diagnoses Type 2 diabetes mellitus with peripheral neuropathy (HCC) Procedures CONSULT TO PODIATRY OFFICE/OUTPATIENT NEW HIGH MDM 60-74 MINUTES Jeana Guerra MD [address] [place] [address] Referral ID Status Reason Start Date Expiration Date V isits Requested Visits Authorized [id number] Closed PCP Requested Referral 03/22/2022 03/22/2023 1 1 Reason Comments Blood Pressure Check Reason Comments Blood Pressure Check Patient Update Reason Comments Refill Request Specialty Diagnoses / Procedures Referred By Page campos Referred To Contact Diagnoses Ductal carcinoma in situ (DCIS) of right breast Encounter for screening mammogram for malignant neoplasm of breast Procedures MAMMO SCREENING WITH DAVION BILATERAL Amy Carreon APRN-WATCH CRYSTAL CUTTER [address], [address] [place] [address] Referral ID Status Reason Start Date Expiration Date V isits Requested Visits Authorized [id number] New Request 08/13/2021 09/07/2022 1 1 Reason Comments Consult Reason Comments Recheck 1 month elevated BP Reason Comments Appointment Reason Onset Date Comments Refill Request 11/29/2022 Reason Comments Established Patient Follow Up Diabetic Foot Care Reason Comments New Patient Lipodermatosclerosis Specialty Diagnoses / Procedures Referred By Page campos Referred To Contact Cardiovascular Medicine Diagnoses Lipodermatosclerosis, unspecified laterality Carlos Shaw MD [address] [place] [address] Referral ID Status Reason Start Date Expiration Date V isits Requested Visits Authorized [id number] New Request 10/04/2022 10/29/2023 1 1 Reason Comments Handicap placard Reason Comments Established Patient nail care [place] Reason Comments Follow-up 6follow up. Pt state s no new/onset vascular symptoms. Referral ID Status Reason Start Date Expiration Date V isits Requested Visits Authorized [id number] New Request 08/30/2022 09/24/2023 1 1 Reason Onset Date Comments Refill Request 09/12/2023 Reason Comments Recheck 6 month Reason Onset Date Comments Refill Request 01/03/2024 Specialty Diagnoses / Procedures Referred By Contac t Referred To Contact Diagnoses Carpal tunnel syndrome on left Procedures REFER TO PACC - PRE ANESTHESIA CONSULTATION CLINIC OFFICE/OUTPATIENT NEW HIGH MDM 60 MINUTES Falguni Hall PA-C [address] [place] [address] Referral ID Status Reason Start Date Expiration Date V isits Requested Visits Authorized [id number] Closed PCP Requested Referral 12/28/2023 12/27/2024 1 1 Reason Comments F/U 6 Month Reason Comments Recheck Follow up BP Reason Onset Date Comments Refill Request 07/03/2024 Reason Comments Radio Gen RMP Specialty Diagnoses / Procedures Referred By Contac t Referred To Contact XR IMAGING Diagnoses Pain Procedures XR HAND GENERAL 3V PA/LAT/OBL LEFT RADEX HAND MINIMUM 3 [place] [address] Referral ID Status Reason Start Date Expiration Date V isits Requested Visits Authorized [id number] Closed Auto-Generate d Referral 12/06/2023 11/20/2024 1 1 Reason Comments F/U 6 months Bilateral legs wound s, seen in [place], better now, usually sees Dr Carlos Shaw for skin. Reason Comments Results Referral ID Status Reason Start Date Expiration Date V isits Requested Visits Authorized [id number] Pending Review 09/05/2023 09/29/2024 1 1 Reason Comments Follow-up One year follow up w ith imaging. Reason Comments Follow-up 1 year fu leg swelli ng Reason Onset Date Comments Population Health Navigation Outreach 09/25/2024 [employer] workbench pita Reason Onset Date Comments Paperwork 09/17/2024 Reason Onset Date Comments Refill Request 10/05/2024 Reason Comments Insurance Authorization Reason Comments Cough Chest and head conge stion x1 month, SOB Reason Comments Sinus Problem questions sinus infe ction that started in October has been getting worse. Seen in urgent care 12/22/24. Drainage is clear but thick. Unable to lie down due to increase cough. Abnormal Weight Gain last true weight wa s 193lb and currently 221noted shortness of breath with exertion heart rate elevated and irregular Reason Onset Date Comments ACM MARY RN 01/10/2025 ED utilizatio n review per request of payor Reason Comments Hospital F/U Hospital [facility] f/u, a fib Reason Onset Date Comments Refill Request 02/21/2025 Reason Comments Follow Up Nail Care Diabetic Foot Care Reason Onset Date Comments Refill Request 03/04/2025 Reason Comments Patient Update Goals (unrecognized section and content) Goals may be documented in a n alternate sectionGoals may be documented in an alternate sectionGoals may be documented in an alternate sectionGoals may be documented in an alternate sectionGoals may be documented in an alternate section FOR RECORDS PERTAINING TO PATIENTS WHO ARE OR HAVE BEEN ENROLLED IN A CHEMICAL DEPENDENCY/SUBSTANCEABUSE PROGRAM, SOME INFORMATION MAY BE OMITTED. This clinical summary was aggregated from multiple sources. Caution should be exercised in using it in the provision of clinical care. This summary normalizes information from multiple sources, and as a consequence, information in this document may materially change the coding, format and clinical context of patient data. In addition, data may be omitted in some cases. CLINICAL DECISIONS SHOULD BE BASED ON THE PRIMARY CLINICAL RECORDS. [facility]. provides no warranty or guarantee of the accuracy or completeness of information in this document.
[2025-04-26 21:24] LABS: Absolute Lymphocyte Count 1.55 X10^3/uL (0.83-4.51); Absolute Neutrophil Count 11.1 X10^3/uL (2.0-7.7); Basophil# 0.05 X10^3/uL; Basophil% 0.4 % (0-1); Eosinophil# 0.11 X10^3/uL; Eosinophils% 0.8 % (0-5); Hemoglobin 7.1 g/dL (12.0-15.0); Lymphocyte # 1.55 X10^3/ul (0.83-4.51); Lymphocyte % 11.3 % (19-41); Mean Corp Hgb Conc 30.9 g/dL (32-36); Mean Corpuscular Hgb 27.7 pg (27.0-32.0); Mean Corpuscular Volume 89.8 fL (81-99); Mean Platelet Vol. 10.4 fl (6.2-12.0); Monocyte# 0.73 X10^3/uL; Monocyte% 5.3 % (0-10); NRBC Flagged by Analyzer 0 % (0-5); Neutrophil # 11.06 X10^3/uL (2.7-7.7); Neutrophil % 80.5 % (47-70); Platelet Count 339 K/mm3 (150-450); RBC Distribution Width CV 16.5 % (11.6-14.6); RBC Distribution Width SD 53.1 fl (35.1-43.9); Red Blood Count 2.56 M/mm3 (4.2-5.4); White Blood Count 13.7 K/mm3 (4.4-11.0)
[2025-04-26] MEDS: 0.9% Normal Saline (1000mL) 1,000 ML 1000 ML IV (21:28)
--- NOTE | 2025-04-26 21:49 | EX.ED.DYSGE1 ---
HPI History of Present Illness Chief Complaint: Weakness Informant: patient and family Narrative Narrative: Here with daughter brought in by EMS increasing weakness. Noted diarrhea states possibly bloody stools. Discharged hospital 2 PM. Was in the hospital for 10 days per daughter. Had pneumonia treated with antibiotics had pleural effusion right side with thoracentesis x 2 last time was 4 days ago. She states also was in kidney failure due to her Lasix however creatinine improved upon discharge today. She was placed on metolazone due to Lasix not working. This is reported by daughter. She is on Eliquis since December for A-fib. She was having intermittent abdominal pain for last few days while in the hospital. None currently. No vomiting. On arrival blood pressure 60s heart rate 110s. She was pale. She has not had any upper endoscopy in the past. She has not had any blood transfusions per daughter. Reports history of heart failure. Prior similar symptoms: No PFSH [facility] Medical History Diabetes Kidney disease Non-smoker Venous (peripheral) insufficiency Atrial fibrillation CHF (congestive heart failure) Venous stasis ulcer Hyperpigmentation of skin Lipodermatosclerosis of both lower extremities Right leg swelling Left leg swelling Varicose veins of lower extremity with inflammation, 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 Chronic venous insufficiency Generalized osteoarthrosis History of right breast cancer Cardiomegaly Home Medications ?Medication ?Instructions ?Recorded ?Last Taken ?Type gabapentin 300 mg capsule 300 mg PO QHS Neuropathy 09/30/17 04/15/25 History (Neurontin) levothyroxine 100 mcg tablet 100 mcg PO DAILY thyroid 09/30/17 04/16/25 History lisinopril 40 mg tablet 40 mg PO DAILY blood pressure 09/30/17 04/15/25 History metformin 500 mg 24 hr 500 mg PO BID diabetes 09/30/17 04/16/25 History tablet,extended release (gastric retention) pentoxifylline 400 mg 1 tab PO TID circulation 09/30/17 04/16/25 History tablet,extended release acetaminophen 500 mg tablet 1,000 mg PO QHS PRN pain 01/08/25 Unknown History (Acetaminophen Extra Strength) cetirizine 10 mg tablet (24Hour 10 mg PO DAILY PRN allergy symptoms 01/08/25 Unknown History Allergy) diosmin complex no.1 630 mg tablet 1 tab PO DAILY 01/08/25 04/15/25 History (Vasculera) aljepdynlojo-yfipziar-lwyafc 1 tab PO DAILY vitamin 01/08/25 04/16/25 History tablet (A Thru Z High Potency tablet) simvastatin 20 mg tablet 20 mg PO QHS cholesterol 01/08/25 04/15/25 History apixaban 5 mg tablet (Eliquis) 5 mg PO BID blood thinner 90 days 01/23/25 04/16/25 Rx #180 tabs diltiazem HCl 240 mg 240 mg PO DAILY heart rate 3 01/23/25 04/16/25 Rx capsule,extended release 24 hr months #90 caps (Cardizem CD) metoprolol tartrate 50 mg tablet 50 mg PO BID blood pressure 90 01/23/25 04/16/25 Rx days #180 tabs biotin 5,000 mcg sublingual tablet 5,000 mcg sublingual DAILY 04/16/25 04/15/25 History supplement semaglutide 0.25 mg or 0.5 mg (2 0.5 mg subcut QWEEK diabetes 04/16/25 Unknown History mg/1.5 mL) subcutaneous pen injector (Ozempic) amiodarone 200 mg tablet 200 mg PO BID #60 tabs 04/26/25 Unknown Rx guaifenesin 600 mg tablet, 600 mg PO BID #20 tabs 04/26/25 Unknown Rx extended release 12 hr (Mucinex) metolazone 5 mg tablet 5 mg PO DAILY #30 tabs 04/26/25 Unknown Rx Allergy/AdvReac Type Severity Reaction Status Date / Time enoxaparin (From Lovenox) Allergy Unknown Verified 04/26/25 21:15 oxycodone Allergy Unknown Verified 04/26/25 21:15 Penicillins (PCN) Allergy Unknown Verified 04/26/25 21:15 Family History Other Heart disease Surgical History History of lumpectomy of right breast History of lumbar laminectomy History of total replacement of both hip joints History of total bilateral knee replacement (TKR) Social History Smoking Status: Never smoker ROS ROS ED Constitutional Constitutional ED: Denies chills, fever(s) or sweats ENT ENT ED: Denies sore throat Cardiovascular Cardiovascular: Denies chest pain, leg edema, palpitations or racing heartbeat Respiratory/Chest Respiratory/Chest: Denies cough, dyspnea or dyspnea on exertion Gastrointestinal Gastrointestinal: Reports diarrhea; Denies abdominal pain, nausea or vomiting Genitourinary Genitourinary ED: Denies dysuria, hematuria or urinary frequency Musculoskeletal Musculoskeletal: Denies back pain, extremity pain or neck pain Integumentary Denies rash or wounds Neurologic Neurologic: Reports weakness; Denies headache(s) or paresthesias EXAM Physical Exam Const Vital Signs: 04/26/25 20:38 04/26/25 21:16 04/26/25 21:30 Temperature 98.9 F Temperature Source Temporal Pulse Rate 115 H 128 H 130 H Respiratory Rate 18 26 H 18 Blood Pressure 58/41 L 95/57 L 107/72 Blood Pressure Mean 46 69 83 Blood Pressure Source Blood Pressure Position Blood Pressure Location Pulse Ox 97 100 Oxygen Delivery Method Room Air Room Air 04/26/25 21:42 04/26/25 22:00 04/26/25 22:00 Temperature 98.1 F 98.1 F Temperature Source Oral Oral Pulse Rate 123 H 121 H 125 H Respiratory Rate 20 H 30 H 20 H Blood Pressure 100/64 108/86 H 100/68 Blood Pressure Mean 76 93 78 Blood Pressure Source Blood Pressure Position Blood Pressure Location Pulse Ox 100 100 100 Oxygen Delivery Method Room Air Room Air Room Air 04/26/25 22:30 04/26/25 22:59 04/26/25 23:00 Temperature 98.2 F 98.4 F Temperature Source Oral Pulse Rate 115 H 130 H 120 H Respiratory Rate 16 30 H 26 H Blood Pressure 104/54 L 108/86 H 107/68 Blood Pressure Mean 70 93 81 Blood Pressure Source Blood Pressure Position Blood Pressure Location Pulse Ox 97 100 100 Oxygen Delivery Method Room Air 04/26/25 23:00 04/26/25 23:12 04/26/25 23:27 Temperature 98.4 F 97.7 F L Temperature Source Temporal Oral Pulse Rate 121 H 114 H Respiratory Rate 24 H 30 H Blood Pressure 107/68 104/66 102/69 Blood Pressure Mean 81 78 80 Blood Pressure Source Monitor Monitor Blood Pressure Position Supine Supine Blood Pressure Location Right Arm Left Arm Pulse Ox 100 100 Oxygen Delivery Method Room Air Room Air Positive well nourished and well developed General Appearance ED: well developed, NAD and pallor HEENT Reports moist mucous membranes normocephalic and atraumatic Eyes General Eye ED: Yes pale conjunctiva Neck full ROM Chest Wall Chest: Negative for tenderness Resp normal respiratory effort and normal air movement Effort and Inspection: symmetric chest movement; Negative for respiratory distress Cardio regular rate, regular rhythm and no murmurs Peripheral Pulses: pulses 2+ throughout GI normal to inspection, nondistended, normoactive bowel sounds and non-tender Palpation: Negative for guarding or rebound tenderness present Extremity normal to inspection General Extremety ED: Negative for edema or tenderness General Extremity: Negative for edema Neuro oriented x3 and no sensory deficits noted Sensorium / Orientation: awake and alert Skin General Skin Exam: pallor MDM MDM MDM Narrative Medical decision making narrative: Interventions / MDM: Differential diagnosis: Upper GI bleed, melanotic stools, transient hypotension, chronic anticoagulation, atrial fibrillation Diagnosis considered but do not suspect: N/A My EKG interpretation: Atrial fibrillation rate 122, right bundle branch block, no ST changes, T wave inversions inferior leads. Similar to April 16, 2025. Imaging independently reviewed and interpreted by myself: N/A External documents reviewed: Echocardiogram April 16, 2025 EF of 55%. Labs from hemoglobin was trending down from 10-8.4 on discharge today. Test considered but not ordered:N/A ED course: Presenting pressure of 58/41 pulse of 115. She was pale on exam. She is on the commode had a melanotic bowel movement liquid. Nontender abdomen. She does not drink alcohol. Fluids were started. Type and cross for 2 units of blood. She is on Eliquis with her hypotension I did order for Kcentra. EKG labs ordered. 2149: Hemoglobin returned at 7.1. Blood pressure 95/57 heart rate 120s. EKG with A-fib. 2219: Blood pressure improving fluids blood is ready to be infused. Heart rate 120s A-fib. I did speak with GI Dr. Still who is aware. Agrees with blood transfusion Protonix drip. Will keep her n.p.o. Will discuss with hospitalist for admission. I discussed with hospitalist Dr. Abel for admission to ICU. Re-evaluation: stable Disposition discussed with patient/family/significant other: Patient and daughter Case discussed with consulting clinician: Gastroenterology, hospitalist This note was generated with [employer] dictation software. It may contain incorrect words, spelling, and punctuation that were not noted in checking the note before signing. Lab Data Attestation: I reviewed the patient's lab results. Labs: Laboratory Results - last 24 hr 04/26/25 04/26/25 20:45 21:11 WBC 13.7 H RBC 2.56 L Hgb 7.1 L Hct 23.0 L MCV 89.8 MCH 27.7 MCHC 30.9 L RDW Std Deviation 53.1 H RDW Coeff of Marcial 16.5 H Plt Count 339 MPV 10.4 Immature Gran % (Auto) 1.700 H Neut % (Auto) 80.5 H Lymph % (Auto) 11.3 L [place] % (Auto) 5.3 Eos % (Auto) 0.8 Baso % (Auto) 0.4 Absolute Neuts (auto) 11.1 H Absolute Lymphs (auto) 1.55 Nucleated RBC % 0 PT 20.4 H INR 1.7 APTT 31.6 Sodium 140 Potassium 4.6 Chloride 105 Carbon Dioxide 22.7 Anion Gap 12 BUN 55 H Creatinine 1.39 H Estim Creat Clear Calc 31.24 L Est GFR (MDRD) Non-Af 37 L BUN/Creatinine Ratio 39.6 H Glucose 183 H Calcium 8.4 Blood Type O POSITIVE Antibody Screen NEGATIVE Crossmatch See Detail Critical Care Time Critical Care Time: Yes Critical care time (excluding procedures): 30-74 minutes, Discussing w/Patient &/or Family/Director Maternal Child, Discussing w/Consultants, Arranging Admission or Transfer, Performing Direct Patient Care at Bedside and - (40 minutes) Discharge Plan Dx/Rx/DC Orders Clinical Impression: GI (gastrointestinal bleed), Atrial fibrillation with RVR, Melanotic stools, Chronic anticoagulation, Transient hypotension Disposition Disposition: Acute Care [facility]
[2025-04-26 21:54] LABS: International Normalized Ratio 1.7; Prothrombin Time (Protime)PT. 20.4 SECONDS (11.7-14.9)
[2025-04-26 21:55] LABS: Partial Thromboplast Time 31.6 Seconds (24.1-36.2)
[2025-04-26] MEDS: VIAFLEX IV (22:01)
[2025-04-26] MEDS: HUM PROTHROMBIN CPLX LANS IV (22:01)
[2025-04-26 22:14] LABS: Anion Gap 12 (5-15); BUN 55 mg/dL (4-19); BUN/Creat Ratio 39.6 RATIO (10-20); Calcium,Total 8.4 mg/dL (7.6-11.0); Carbon Dioxide 22.7 mmol/L (21.0-32.0); Chloride 105 mmol/L (98-108); Creatinine, Serum 1.39 mg/dL (0.70-1.20); EST Glomerular Filtration Rate 37 (>60); Estimated Creatinine Clearance 31.24 ml/min (50-250); Glucose 183 mg/dL (70-99); Potassium 4.6 mmol/L (3.3-5.1); Sodium Level 140 mmol/L (133-145)
[2025-04-26] MEDS: Pantoprazole Sodium 80 MG in 0.9% Normal Saline (50mL Bag) 15 ML 420 MG IV BOLUS (22:16)
[2025-04-26] MEDS: Pantoprazole Sodium 80 MG in 0.9% Normal Saline (100mL Bag) 80 ML 10 MG CONT INF (22:22)
[2025-04-27] VITALS (54 sets, daily range): BP systolic 93–125; BP diastolic 57–97; PULSE 52–149; RESP 14–34; TEMP 35.8–37.1; O2SAT 93–100; BMI 40.3
[2025-04-27] MEDS: Bisacodyl 5 MG Tablet 20 MG PO (00:22)
[2025-04-27] MEDS: Electrolyte Solution/Peg's 4000 ML PO (00:23)
--- NOTE | 2025-04-27 01:56 | PCM.HP.STD ---
HPI - General General Date of Admission: 04/27/25 Date of Service: 04/27/25 Chief Complaint: Abdominal cramping, fatigue, malaise, weakness, bloody stools. HPI Narrative The patient is an 84 y/o F w/ PMHx: Hx R sided breast CA unclear type status post right breast lumpectomy considered on admission, BL LE venous stasis disease/insufficiency/chronic lymphedema, PAF, Chronic normocytic anemia, CKD stage III unclear subtype per GFR trending, HFpEF, HTN, HLD, Hypothyroidism, Diabetes mellitus type II with chronic neuropathy, recent prolonged admission 04/16/2025-04/26/2025 with evaluation and treatment of acute kidney injury requiring temporary dialysis catheter, PAF with RVR, heart failure exacerbation with recurrent pleural effusion with echo with EF 55 to 60% with severe biatrial enlargement with initial attempts for diuresis however patient was not responsive to Lasix drip with onset of hypotension transition to Zaroxolyn with during admission significant large right pleural effusion with thoracentesis 04/19/2025 as well as paracentesis unfortunately with reaccumulation with repeat thoracentesis 04/23/2025 with fluid consistent with transudate, initial creatinine upon presentation 2.31 with kidney function worsening with diuresis bumping up to 2.62 with nephrology involvement and ultrasound obtained and given significant underlying heart failure presentation unfortunately patient did require temporary dialysis with improvement of creatinine at time of discharge to 1.15 with ongoing nephrology involvement, usage of Cardizem drip for PAF with RVR eventually requiring amiodarone drip with bolus and eventual switch from IV to oral amiodarone treated in addition to these items for suspected Klebsiella pneumonia completing antibiotic therapy discharged on new regimen of metolazone who now re-presents to the [facility] ED on 04/26/2025 with increasing weakness, malaise in addition to concern for bloody diarrhea with intermittent abdominal discomfort only 1 episode of nausea with emesis noted to be clear liquids and upon arrival patient noted to be significantly tachycardic in A-fib. Patient does report abdominal cramping worse in the left upper and lower abdomen. She denies any chest pain, lightheadedness or dizziness. Workup in the ED included T98.9, heart rate 115, BP initially 58/41, respiratory rate 18, 97% on room air with most recent repeat vitals heart rate 125, BP 100/68, respiratory rate 20, 100% on room air, CBC with WBC 13.7, hemoglobin 7.1, MCV 89.8, platelets 239 with left shift, coags with PT 20.4 otherwise unremarkable, BMP with BUN/55/1.39, GFR 37, glucose 183. In the ED patient ministered pantoprazole bolus and initiated on drip as well as human prothrombin complex and 1 L normal saline. In addition type and cross for 2 units initiated per ED physician. In the ED patient with dark red/tarry stools persistently, loose per discussion with ED staff. [facility] Medical History Diabetes Kidney disease Non-smoker Venous (peripheral) insufficiency Atrial fibrillation CHF (congestive heart failure) Venous stasis ulcer Hyperpigmentation of skin Lipodermatosclerosis of both lower extremities Right leg swelling Left leg swelling Varicose veins of lower extremity with inflammation, 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 Chronic venous insufficiency Generalized osteoarthrosis History of right breast cancer Cardiomegaly Home Medications ?Medication ?Instructions ?Recorded ?Last Taken ?Type gabapentin 300 mg capsule 300 mg PO QHS Neuropathy 09/30/17 04/15/25 History (Neurontin) levothyroxine 100 mcg tablet 100 mcg PO DAILY thyroid 09/30/17 04/16/25 History lisinopril 40 mg tablet 40 mg PO DAILY blood pressure 09/30/17 04/15/25 History metformin 500 mg 24 hr 500 mg PO BID diabetes 09/30/17 04/16/25 History tablet,extended release (gastric retention) pentoxifylline 400 mg 1 tab PO TID circulation 09/30/17 04/16/25 History tablet,extended release acetaminophen 500 mg tablet 1,000 mg PO QHS PRN pain 01/08/25 Unknown History (Acetaminophen Extra Strength) cetirizine 10 mg tablet (24Hour 10 mg PO DAILY PRN allergy symptoms 01/08/25 Unknown History Allergy) diosmin complex no.1 630 mg tablet 1 tab PO DAILY 01/08/25 04/15/25 History (Vasculera) pqevbwdhgyqr-kznqyqid-mifumn 1 tab PO DAILY vitamin 01/08/25 04/16/25 History tablet (A Thru Z High Potency tablet) simvastatin 20 mg tablet 20 mg PO QHS cholesterol 01/08/25 04/15/25 History apixaban 5 mg tablet (Eliquis) 5 mg PO BID blood thinner 90 days 01/23/25 04/16/25 Rx #180 tabs diltiazem HCl 240 mg 240 mg PO DAILY heart rate 3 01/23/25 04/16/25 Rx capsule,extended release 24 hr months #90 caps (Cardizem CD) metoprolol tartrate 50 mg tablet 50 mg PO BID blood pressure 90 01/23/25 04/16/25 Rx days #180 tabs biotin 5,000 mcg sublingual tablet 5,000 mcg sublingual DAILY 04/16/25 04/15/25 History supplement semaglutide 0.25 mg or 0.5 mg (2 0.5 mg subcut QWEEK diabetes 04/16/25 Unknown History mg/1.5 mL) subcutaneous pen injector (Ozempic) amiodarone 200 mg tablet 200 mg PO BID #60 tabs 04/26/25 Unknown Rx guaifenesin 600 mg tablet, 600 mg PO BID #20 tabs 04/26/25 Unknown Rx extended release 12 hr (Mucinex) metolazone 5 mg tablet 5 mg PO DAILY #30 tabs 04/26/25 Unknown Rx Allergy/AdvReac Type Severity Reaction Status Date / Time enoxaparin (From Lovenox) Allergy Unknown Verified 04/26/25 21:15 oxycodone Allergy Unknown Verified 04/26/25 21:15 Penicillins (PCN) Allergy Unknown Verified 04/26/25 21:15 Family History (Updated 04/27/25 @ 01:[address] Dayana Abel MD) Father Heart disease Hypertension Heart failure Mother Kidney disease Heart disease Cancer Surgical History History of lumpectomy of right breast History of lumbar laminectomy History of total replacement of both hip joints History of total bilateral knee replacement (TKR) Social History (Updated 04/27/25 @ 01:[address] Dayana Abel MD) household members: spouse Smoking Status: Never smoker alcohol intake: never substance use type: does not use ROS ROS Narrative Admission Review of Systems: CONSTITUTIONAL: No weight loss, fever, chills, + weakness or fatigue. HEENT: Eyes: No visual loss, blurred vision, double vision or yellow sclerae. Ears, Nose, Throat: No hearing loss, sneezing, congestion, runny nose or sore throat. SKIN: No rash or itching, lesions, wounds except notable chronic bilateral lower extremity venous stasis skin changes, occasional stage ecchymoses, abrasion, pale appearing. CARDIOVASCULAR: No chest pain, chest pressure or chest discomfort, palpitations, edema, orthopnea, syncopal events. RESPIRATORY: No shortness of breath, cough or sputum, wheezing, hemoptysis. GASTROINTESTINAL: + Decreased appetite, abdominal cramping, dark red and tarry appearing stools, diarrhea, nausea, emesis times 1 noted to be clear liquids. GENITOURINARY: No dysuria, frequency, urgency or retention. NEUROLOGICAL: No headache, dizziness, syncope, paralysis, ataxia, numbness or tingling in the extremities, focal weakness, change in bowel or bladder control, seizure. MUSCULOSKELETAL: + muscle, back pain, joint pain or stiffness. HEMATOLOGIC: + Acute on chronic anemia, active bleeding is noted, easy bleeding/bruising. LYMPHATICS: No enlarged nodes. No history of splenectomy. PSYCHIATRIC: No history of depression or anxiety. ENDOCRINOLOGIC: No reports of sweating, cold or heat intolerance. No polyuria or polydipsia. ALLERGIES: + History of allergic rhinitis. Vital Signs Vital Signs Vital Signs: 04/26/25 20:38 04/26/25 21:16 04/26/25 21:30 Temperature 98.9 F Temperature Source Temporal Pulse Rate 115 H 128 H 130 H Respiratory Rate 18 26 H 18 Blood Pressure 58/41 L 95/57 L 107/72 Blood Pressure Mean 46 69 83 Pulse Ox 97 100 Oxygen Delivery Method Room Air Room Air 04/26/25 22:00 04/26/25 22:30 Temperature Temperature Source Pulse Rate 125 H 115 H Respiratory Rate 20 H 16 Blood Pressure 100/68 104/54 L Blood Pressure Mean 78 70 Pulse Ox 100 97 Oxygen Delivery Method Room Air Weight Weight: 210 lb 8.663 oz Body Mass Index (BMI) 39.7 Physical Exam Narrative Physical Examination: General: Awake, alert, oriented x 3 and cooperative, laying in ED bed, fatigued appearing, blood being initiated now. Skin: Pale color, normal turgor, no icterus, no cyanosis, occasional stage ecchymoses likely from recent hospitalization with lab draws in addition to significant bilateral lower extremity venous stasis skin changes. HEENT: AT/NC, EOMI, PERRLA, moderately dry MM, no carotid bruits or JVD noted. Lungs: Mildly diminished, greater bases, mildly increased respiratory rate without distress, no r markedly appreciated ales, ronchi or wheezing. Heart: Irregular irregular; no gallop, rub audible. Abdomen: Soft, mild generalized discomfort palpation but no rebound or guarding, no marked distention, hyperactive BS, no appreciated HSM. Extremities: No cyanosis, no clubbing, significant pedal to knee 2+ chronic edema, notable venous stasis skin changes. Neurological: Patient awake, alert, oriented as noted, cognitive function intact; pupils equally reactive to light and accommodation, cranial nerves gross normal, moving all 4 extremities, no focal deficits, strength severely globally decreased Psychiatric: Affect appears flat, fatigued, no acute evidence of depressive or anxiety feelings. Results Lab / Micro Data 04/26/25 20:45 04/26/25 20:45 Labs: Laboratory Results - last 24 hr 04/26/25 20:45: WBC 13.7 H, RBC 2.56 L, Hgb 7.1 L, Hct 23.0 L, MCV 89.8, MCH 27.7, MCHC 30.9 L, RDW Std Deviation 53.1 H, RDW Coeff of Marcial 16.5 H, Plt Count 339, MPV 10.4, Immature Gran % (Auto) 1.700 H, Neut % (Auto) 80.5 H, Lymph % (Auto) 11.3 L, Harnett % (Auto) 5.3, Eos % (Auto) 0.8, Baso % (Auto) 0.4, Absolute Neuts (auto) 11.1 H, Absolute Lymphs (auto) 1.55, Nucleated RBC % 0, PT 20.4 H, INR 1.7, APTT 31.6, Sodium 140, Potassium 4.6, Chloride 105, Carbon Dioxide 22.7, Anion Gap 12, BUN 55 H, Creatinine 1.39 H, Estim Creat Clear Calc 31.24 L, Est GFR (MDRD) Non-Af 37 L, BUN/Creatinine Ratio 39.6 H, Glucose 183 H, Calcium 8.4 04/26/25 21:11: Blood Type O POSITIVE, Antibody Screen NEGATIVE, Crossmatch See Detail Micro: Microbiology 04/26/25 21:08 Stool Stool Occult Blood (ANDREA) - Final Occult Blood Positive Assessment & Plan Assessment/Plan (1) GI (gastrointestinal bleed): (2) Atrial fibrillation with RVR: PLAN: Plan The patient is an 84 y/o F w/ PMHx: Hx R sided breast CA unclear type status post right breast lumpectomy considered on admission, BL LE venous stasis disease/insufficiency/chronic lymphedema, PAF, Chronic normocytic anemia, CKD stage III unclear subtype per GFR trending, HFpEF, HTN, HLD, Hypothyroidism, Diabetes mellitus type II with chronic neuropathy, recent prolonged admission 04/16/2025-04/26/2025 with FERMÍN on CKD with temporary dialysis, PAF with RVR, heart failure exacerbation with serial thoracenteses secondary to recurrent pleural effusions with difficulty with rate control with RVR who now re-presents to the [facility] ED on 04/26/2025 with increasing weakness, malaise in addition to concern for bloody diarrhea with intermittent abdominal discomfort with no nausea or emesis and upon arrival patient noted to be significantly tachycardic in A-fib. #1. Transient Severe Hypotension, improving with IV fluids secondary to Acute Upper GI bleed with acute blood loss anemia on chronic anemia/normocytic anemia: Hemoglobin 04/24/25 Hgb 10.3-> 04/25/25 Hgb 9.9-> 04/26/25 Hgb8.4-> current presentation 04/26/25 20:40 repeat hemoglobin 7.1. Will admit to the ICU, will judiciously hydrate only if needed given recent HFpEF exacerbation and planned PRBC administration, monitor for overload as may require intermittent pulse IV lasix if BP appropriate although patient seems not to respond as well thus could consider her oral metaxalone, recieved prothrombin complex in the ED, continue to cycle H&H's, will continue Protonix infusion, per discussion with gastroenterology Dr. Still who is consulted and will follow plan for endoscopy with need for initiation of bowel prep to be started now, extract operator will be consulted per protocol given planned admission to the unit, maintain on fall precautions. #2. Paroxysmal atrial fibrillation w/ RVR: EKG in ED w/ atrial fibrillation w/ RVR. Patient administered initially 1 L normal saline in ED. unfortunately need to be careful about volume of hydration given recent heart failure exacerbation and plan PRBC administration, as noted above may need to pulse dose Lasix, given patient presentation with acute blood loss anemia volume status may be a big part of patient RVR as patient has improved somewhat with fluids, continue patient amiodarone regimen with dose now, as BP allows will reinitiate patient a metoprolol and diltiazem, discontinued NOAC given current presentation. #3. Recent Acute on Chronic HFpEF Exacerbation, resolved: Notable recent presentation, issues with diuresis attempts as patient's renal function worsened with Lasix and was not responsive transitioned eventually to metolazone, given current presentation holding NOAC, continue statin, holding all hypertensive regimen until BP improves ideally following PRBC ministration given #1, given 1 L normal saline in the ED and PRBC thus will continue to closely monitor for overload given predisposition. May need to diurese as BP allows. #4. Recent FERMÍN on CKD stage III unclear subtype per GFR trending, resolved: Admission BUN/creatinine 55/1.39, GFR 37, baseline creatinine primarily 1.0-1.3, stable, continue to trend. #5. Hx R sided breast CA: Patient with unclear type status post right breast lumpectomy considered on admission. #6. BL LE venous stasis disease/insufficiency/chronic lymphedema: Will place neck jersey wraps with lower extremity elevation. #7. Hypertension: Will temporarily hold hypertensive regimen, ideally would preferentially use patient rate agents given PAF with RVR. #8. Hyperlipidemia: Will continue patient on statin therapy. #9. Diabetes mellitus type II with chronic neuropathy: Hold oral home regimen, currently n.p.o. status, continue accu checks w/ ISS, continue gabapentin as vitals allow. #10. Hypothyroidism: Will continue patient on levothyroxine regimen. #11. DVT prophylaxis: SCDs. #12. CODE status: Patient Healthcare power of finance attorney living will not in place but she notes her and daughter who is present would be her medical decision makers if necessary. Discussed CODE status at length including difference between FULL code, DNR-CCA and DNR-CC status. Following discussions about the differences in these status, requested DNR CCA with allowance of intubation short-term only with examples discussed. Initially following discussions with daughter and patient status changed to full code but following discussion of likely outcome status given age and underlying comorbidities patient transition back to DNR-CCA as noted. Advanced Care Planning Face to Face Time: 16 minutes. Charges/Coding Visit Charges Inpatient E&M: 86930 Init Hosp L3 Procedures Hospitalists Procedures: 23347 Advncd Care Plan 30 Min
--- NOTE | 2025-04-27 03:50 | ED.RN ---
pt has approximately 4 total liquid red/brown stools. complete bed changes with each. Pt drank more than 3/4 of her Golytely.
--- OUTSIDE RECORDS SUMMARY | 2025-04-27 05:13 | XMS RPT_ITS | CCD ---
Author Organization [facility] Care Team Providers Care Recapper Name Role Phone DENISE FINK Unavailable Unavailable Jeana Guerra MD Primary Care Provider Jeana Guerra MD Primary Care Provider Avinash Barbosa MD Unavailable Roger Reynolds MD Unavailable [phone] Jeana Guerra MD Primary Care Provider Jeana Guerra MD Primary Care Provider Avinash Barbosa MD Unavailable Roger Reynolds MD Unavailable Jeana Guerra MD Primary Care Provider Jeana Guerra MD Primary Care Provider Avinash Barbosa MD Unavailable GANTA, JEANA C Primary Care Unavailable GANTA, JEANA C Referring Unavailable ADRIAN JEONG Attending Unavailable GANTA, JEANA C Primary Care Unavailable RESTORATION, AMY Attending Unavailabl e RESTORATION, AMY Referring Unavailabl e GANTA, JEANA C Primary Care Unavailable RESTORATION, AMY Attending Unavailabl e RESTORATION, AMY Referring Unavailabl e Rosemarie Taylor PA-C Unavailable Older MULTIM[employer]IA AUTHOR.PAINT PREP TECHNICIAN, Greta Unavailable Lindsey Camara PA-C Unavailable Dr. Jeana Guerra MD Primary Care Provider Julius HENDERSON, Dr. Khanna Emergency Provider [phone] Octaviano HENDERSON, Dr. Cowart Admit Provider Octaviano HENDERSON, Dr. Cowart Attending Provider Ibrahima HENDERSON, Dr. Duarte Other Provider Octaviano HENDERSON, Dr. Cowart Other Provider Ibrahima HENDERSON, Dr. Duarte Attending Provider Marge CLAY-CBetsy Attending Provider Aby Tierney Attending Provider Pedro HENDERSON, Dr. Robledo Referring Provider Magdi Pedroza Attending Provider Magdi Pedroza Referring Provider Kina DA SILVA, Dr. Evans Emergency Provider Roopa DA SILVA, Dr. Mcginnis Admit Provider Roopa DA SILVA, Dr. Mcginnis Attending Provider Roopa DA SILVA, Dr. Mcginnis Referring Provider Edward Le Attending Unavailable Jeana Guerra Primary Care Unavailable Ras Childress Primary Care Unavailable Ras Blas Consulting Unavailable Ras Blas Admitting Unavailable Amado Bailey Attending Unavailable Ras Blas Referring Unavailable Koki Mcnulty Consulting Unavailable Tashi Migel Consulting Unavailable Oscar Parmar Consulting Unavailable Mario, Nagi Consulting Unavailable Jae Wong Consulting Unavailable Dand, Yang Consulting Unavailable Dhesi, Mason Consulting Unavailable Valeria, Franko Consulting Unavailable Peace Rich Consulting Unavailable Aurora Huerta Consulting Unavailable Reji Aguilar Consulting Unavailable Abdoulaye, Eric Consulting Unavailable Babak Kilpatrick Consulting Unavailable Ten Turner Consulting Unavailable Claudia Gomes Consulting Unavailab Roger Bejarano Consulting Unavailable Nitish Monsivais Consulting Unavailable Mary Lang Consulting Unavailable Gustavo Avila Consulting Unavailable Darien Barry Consulting Unavailable Amado Cortez Consulting Unavailable Heron Sosa Consulting Unavailable Gaudencio Garrison Consulting Unavailable Edward Le Consulting Unavailable Chris Fields Consulting Unavailable Aubrey De Luna Consulting Unavailable Radha, Jayaprakas Consulting Unavailable Edward Le Attending Unavailable Amado Bailey Consulting Unavailable Octaviano, Supa Attending Unavailable Octaviano, Supa Admitting Unavailable Ibrahima, Gerald Consulting Unavailable Ganta, Jeana Primary Care Unavailable Octaviano, Supa Consulting Unavailable Mario CEDEÑO, Mckayla Attending Unavailable Ras Blas Attending Unavailable Ganta, Jeana Primary Care Unavailable Ibrahima, Gerald Attending Unavailable Aubrey De Luna Attending Unavailable Betsy Bird Attending Unavailable Aby Tierney Attending Unavail able Jae Wong Attending Unavailable Donnie, Chris Attending Unavailable Demiter, Magdi Referring Unavailable Demiter, Magdi Attending Unavailable Ganta, Jeana Primary Care Unavailable Demiter, Magdi Attending Unavailable Ganta, Jeana Primary Care Unavailable Ganta, Jeana Referring Unavailable Ganta, Jeana Primary Care Unavailable Demiter, Magdi Attending Unavailable Demiter, Magdi Referring Unavailable Octaviano, Supa Attending Unavailable Ibrahima, Gerald Consulting Unavailable Octaviano, Supa Admitting Unavailable Ganta, Jeana Primary Care Unavailable GANTA, JEANA Primary Care Unavailable GANTA, JEANA Attending Unavailable GANTA, JEANA Primary Care Unavailable GANTA, JEANA Attending Unavailable GANTA, JEANA Primary Care Unavailable GANTA, JEANA Referring Unavailable TESTRAKE, MIRANDA Referring Unavailable TESTRAKE, MIRANDA Attending Unavailable GANTA, JEANA Primary Care Unavailable GANTA, JEANA Primary Care Unavailable GANTA, JEANA Attending Unavailable GANTA, JEANA Attending Unavailable GANTA, JEANA Primary Care Unavailable GANTA, JEANA Primary Care Unavailable GANTA, JEANA Referring Unavailable TESTRAKE, MIRANDA Attending Unavailable GANTA, JEANA Primary Care Unavailable GANTA, JEANA Primary Care Unavailable Allergies Allergy Classification Reported Allergen(s) Allergy Type Date of Onset Reaction(s) Facility Enoxaparin (1 source) Enoxaparin Drug Allergy 2 Rash, Itching [facility] Opioid Agonists (2 sources) Codeine Drug Allergy 8 GI Upset, Mental Status Change, Other: See Comments [facility] Penicillins (antibiotic) (1 source) Penicillins Drug Allergy 8 Rash, Other: See Comments [facility] (20 sources) codeine; 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: [CODEINE] Drug Allergy 8 GI Upset [facility] Repository (20 sources) enoxaparin; 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: [ENOXAPARIN SODIUM] Drug Allergy 2 Rash, Itching [facility] Repository (20 sources) oxyCODONE; 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: [OXYCODONE] Drug Allergy 8 Other: See Comments, Mental Status Change [facility] Rep[facility] (20 sources) Penicillins; 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: [PENICILLINS] Propensity to adverse reactions to drug (disorder) 8 Other: See Comments, Rash [facility] Repository (13 sources) Penicillin G Drug Allergy 9 Rash [facility] (5 sources) Enoxaparin Drug Allergy 7 Unknown [facility] (1 source) Enoxaparin Drug Allergy 5 [facility] Repository Medications Current Medications Medication Drug Class(es) Dates Sig (Normalized) Sig (Original) acetaminophen 500 mg oral tablet (20 sources) Start: 01-08-2025 take 2 tablets by mouth at bedtime as needed for pain Acetaminophen (Acetaminophen Extra Strength) 500 mg tablet Active 1000 mg PO AT BEDTIME as needed for pain January 08, 2025 1:00am take 2 tablets by mo ut at bedtime as needed Acetaminophen 500 MG [...] Vasomotor rhinitis , Post-nasal drip Use 1 Milaca in each nostril two times a day. [...] Comment on above: Take 5,000 mcg by [facility]. cetirizine hydrochloride 10 mg oral tablet (7 [...] Comment on above: Take 1 tablet by [facility] twice daily for 10 days. Dietary [...] Comment on above: [facility]. Diosmin Complex No.1 (Vasculera) 630 [...] on above: Take 1 capsule by [facility] once daily. L.Acidoph, Paracasei,B. Lactis (2 sources) [...] on above: Take 2 tablets by mo [facility] once daily. metoprolol tartrate 50 mg oral [...] 1 Tab by mouth Daily. 0 Active Iccecdxyfpxf-Wotfviad-Iakiso (A Thru Z High Potency) tablet (3 sources) Start: 01-08-2025 Zqqxmhlnbwfv-Xdqdeyaq-Imvvxe (A Thru Z High Potency) tablet Active [...] release oral tablet (20 sources) Blood Viscosity Mail Weigher Start: 09-30-2017 End: 01-08-2025 take 1 tablet by mouth three times daily pentoxifylline ER (TRENTAL) 400 mg CR tablet Take 1 tablet by mouth three times a day. 90 tablet 3 03/29/2024 Active Start: 09-30-2017 Pentoxifylline 400 MG tablet Active 1 {tbl} PO THREE TIMES A DAY September 30, 2017 1:00am Comment on above: Take 1 tablet by alfonso three times daily. Take 1 tablet by [...] extended release oral tablet (3 sources) Uncompetitive B-sxmeel-D-aspartate Receptor Antagonist, Sigma-1 Agonist Start: 01-11-2025 End: 04-16-2025 Dextromethorphan-Guaif enesin (Mucinex Dm) 30-600 mg Tablet Extended Release 12 Hr Discontinued 1 {tbl} PO TWICE A DAY 14 January 11, 2025 1:00am April 16, 2025 [...] as needed.. Reported on 03/01/2017 0 Active AngelitoAcidHuseyin quiñonesiB.Animal is 1 EACH capsule (3 sources) Start: [...] Inhibitor Antibacterial, Sulfonamide Antimicrobial Start: 09-10-2024 End: 11-04-2024 take 1 tablet by mouth twice daily [...] other endocrine, nutritional and metabolic disease] Onset: 5 Episodic Other skin disorders (5 sources) Hyperpigmentation [...] (3 sources) Finding of measures of abdomen 02-18-2025 Varicose veins of lower extremity (20 sources) Lipodermatosclerosis; 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: [Varicose veins of unspecified lower extremity with inflammation] Onset: 10-23-2015 04-11-2018 Episodic Results Test Name Value Interpretation Reference Range Facility [facility] 04-26-[address] [facility] Telephone (INTMWS) MANUELBLSESING I ([id number]) 1940 F Date Time Provider Department 04/26/25 JEANA GUERRA INTMWS During your visit today, we recorded the following information about you: Elenita Ponce RN 04/26/2025 2:28 PM Signed Sydni with [facility] calls to ask if provider will follow their orders for SN, PT, OT. Patient currently at [facility] PCU for CHF exacerbation and A-fib. Patient to discharge today. Call back number is [phone]. Please review and advise, BASIL Wray Chitra, MD 04/26/2025 2:58 PM Signed Yes will follow up RegardsJeana MD, [place], MA 04/26/2025 3:30 PM Signed Left detailed message on secure [employer] Sherron Barnes MA Allergies As of Date: 04/26/2025 Noted Allergy Reaction LOVENOX (ENOXAPARIN SODIUM) 04/14/2012 [...] MA - Fully Assessed Reason for Visit: Orders [681] Prescriptions as of 04/26/2025 - simvastatin (ZOCOR) 20 mg tablet Take [...] (DYMISTA) 137-50 mcg/spray nasal spray Use 1 Milaca in each nostril two times a day. [...] tablet daily. Problem List As Of Date 04/26/2025 Noted Resolved Essential hypertension [I10] Hypothyroidism [E03.9] [...] [M19.041] 09/29/2021 Peripheral venous insufficiency [I87.2] 04/19/2023 Obesity, Class III, BMI >= 40 [E66.813] 01/08/2025 Stage 3a chronic kidney disease (HCC) [N18.31] 01/08/2025 Encounter Numbe (more content not included)... Normal [facility] Basic Metabolic Profile (BMP )on 04-25-2025 BUN/CRE 39.6 RATIO High 10-20 [facility] Comment on above: Performed By: #### L 100.0100, L500.2500 ####[facility] [address] [place], [address] Calcium [Mass/Vol] 8.7 mg/dL Normal 7.6-11.0 [facility] Comment on above: Performed By: #### L 100.0100, L500.2500 ####[facility] [address] [place], [address] Chloride [Moles/Vol] 107 mmol/L Normal 98-108 [facility] Comment on above: Performed By: #### L 100.0100, L500.2500 ####[facility] [address] [place], [address] CO2 [Moles/Vol] 25.0 mmol/L Normal 21.0-32.0 [facility] Comment on above: Performed By: #### L 100.0100, L500.2500 ####[facility] [address] [place], [address] Creatinine [Mass/Vol] 1.13 mg/dL Normal 0.70-1.20 [facility] Comment on above: Performed By: #### L 100.0100, L500.2500 ####[facility] [address] [place], [address] ECRCL 38.04 ml/min Low 50-250 [facility] Comment on above: Performed By: #### L 100.0100, L500.2500 ####[facility] [address] [place], [address] GAP 9 Normal 5-15 [facility] Comment on above: Performed By: #### L 100.0100, L500.2500 ####[facility] [address] [place], [address] GFR/1.73 sq M.predicted among non-blacks MDRD (S/P/Bld) [Vol rate/Area] 48 mL/min/{1.73_m2} Low >60 [facility] Comment on above: Result Comment: mL/m in/1.73m2 CKD-EPI Creatinine Equation (2020) Performed By: #### L 100.0100, L500.2500 ####[facility] [address] [place], [address] Glucose [Mass/Vol] 150 mg/dL High 70-99 [facility] Comment on above: Performed By: #### L 100.0100, L500.2500 ####[facility] [address] [place], [address] Potassium [Moles/Vol] 3.9 mmol/L Normal 3.3-5.1 [facility] Comment on above: Performed By: #### L 100.0100, L500.2500 ####[facility] [address] [place], [address] Sodium [Moles/Vol] 141 mmol/L Normal 133-145 [facility] Comment on above: Performed By: #### L 100.0100, L500.2500 ####[facility] [address] [place], [address] Urea nitrogen [Mass/Vol] 45 mg/dL High 4-19 [facility] Comment on above: Performed By: #### L 100.0100, L500.2500 ####[facility] [address] [place], [address] Bedside Glucoseon 06-05-2024 FINGERSTICK GLU 139 mg/dL High 74-106 [facility] Comment on above: Result Comment: RUSSELL GEMENT OF PATIENT CARE PER NURSING PROTOCOL Performed By: #### L 501.080 ####[facility] [address] [facility] [address] FINGERSTICK GLU 147 mg/dL High 74-106 [facility] Comment on above: Result Comment: RUSSELL GEMENT OF PATIENT CARE PER NURSING PROTOCOL Performed By: #### L 501.080 ####[facility] [address] [place] [address] FINGERSTICK GLU 165 mg/dL High -106 [facility] Comment on above: Result Comment: RUSSELL GEMENT OF PATIENT CARE PER NURSING PROTOCOL Performed By: #### L 501.080 ####[facility] [address] [place] [address] FINGERSTICK GLU 139 mg/dL High 74-106 [facility] Comment on above: Result Comment: RUSSELL GEMENT OF PATIENT CARE PER NURSING PROTOCOL Performed By: #### L 501.080 ####[facility] [address] [place], [address] FINGERSTICK GLU 129 mg/dL High -106 [facility] Comment on above: Result Comment: RUSSELL GEMENT OF PATIENT CARE PER NURSING PROTOCOL Performed By: #### L 501.080 ####[facility] [address] [facility] [address] FINGERSTICK GLU 142 mg/dL High 74-106 [facility] Comment on above: Result Comment: RUSSELL GEMENT OF PATIENT CARE PER NURSING PROTOCOL Performed By: #### L 501.080 ####[facility] [address] [facility] [address] CBC W/Diff, Automatedon 06-0 Absolute Lymph 0.75 X10 3/uL Low 0.83-4.51 [facility] Comment on above: Performed By: #### L 100.0100, L500.2500 ####[facility] [address] [place], [address] Absolute Neut 9.2 X10 3/uL High 2.0-7.7 [facility] Comment on above: Performed By: #### L 100.0100, L500.2500 ####[facility] [address] [place], [address] Basophils/100 WBC (Bld) 0.4 % Normal 0-1 [facility] Comment on above: Performed By: #### L 100.0100, L500.2500 ####[facility] [address] [place], [address] Eosinophils/100 WBC (Bld) 2.7 % Normal 0-5 [facility] Comment on above: Performed By: #### L 100.0100, L500.2500 ####[facility] [address] [place], [address] Erythrocyte distribution width (RBC) [Ratio] 16.2 % High 11.6-14.6 [facility] Comment on above: Performed By: #### L 100.0100, L500.2500 ####[facility] [address] [place], [address] Hematocrit (Bld) [Volume fraction] 31.4 % Low 37-47 [facility] Comment on above: Performed By: #### L 100.0100, L500.2500 ####[facility] [address] [place], [address] Hemoglobin (Bld) [Mass/Vol] 9.9 g/dL Low 12.0-15.0 [facility] Comment on above: Performed By: #### L 100.0100, L500.2500 ####[facility] [address] [place], [address] IG% 0.600 Normal 0.0-0.9 [facility] Comment on above: Result Comment: IG% - Immature Granulocytes (promyelocytes, myelocytes andmetamyelocytes) > 1% indicates that a LEFT SHIFT is Present. Performed By: #### L 100.0100, L500.2500 ####[facility] [address] [place], [address] Lymphocytes/100 WBC (Bld) 6.8 % Low 19-41 [facility] Comment on above: Performed By: #### L 100.0100, L500.2500 ####[facility] [address] [place], [address] MCH (RBC) [Entitic mass] 28.0 pg Normal 27.0-32.0 [facility] Comment on above: Performed By: #### L 100.0100, L500.2500 ####[facility] [address] [place], [address] MCHC (RBC) [Mass/Vol] 31.5 g/dL Low 32-36 [facility] Comment on above: Performed By: #### L 100.0100, L500.2500 ####[facility] [address] [place], [address] MCV (RBC) [Entitic vol] 88.7 fL Normal 81-99 [facility] Comment on above: Performed By: #### L 100.0100, L500.2500 ####[facility] [address] [place], [address] Monocytes/100 WBC (Bld) 5.9 % Normal 0-10 [facility] Comment on above: Performed By: #### L 100.0100, L500.2500 ####[facility] [address] [place], [address] Neutrophils/100 WBC (Bld) 83.6 % High 47-70 [facility] Comment on above: Performed By: #### L 100.0100, L500.2500 ####[facility] [address] [place], [address] Nucleated RBC (Bld) [#/Vol] 0 10*3/uL Normal 0-5 [facility] Comment on above: Performed By: #### L 100.0100, L500.2500 ####[facility] [address] [place], [address] Platelet mean volume (Bld) [Entitic vol] 10.1 fL Normal 6.2-12.0 [facility] Comment on above: Performed By: #### L 100.0100, L500.2500 ####[facility] [address] [place], [address] Platelets (Bld) [#/Vol] 295 10*3/uL Normal 150-450 [facility] Comment on above: Performed By: #### L 100.0100, L500.2500 ####[facility] [address] [place], [address] RBC (Bld) [#/Vol] 3.54 10*6/uL Low 4.2-5.4 [facility] Comment on above: Performed By: #### L 100.0100, L500.2500 ####[facility] [address] [place], [address] RDW SD 52.8 fl High 35.1-43.9 [facility] Comment on above: Performed By: #### L 100.0100, L500.2500 ####[facility] [address] [place], [address] WBC (Bld) [#/Vol] 11.1 10*3/uL High 4.4-11.0 [facility] Comment on above: Performed By: #### L 100.0100, L500.2500 ####[facility] [address] [place], [address] Chest PA and Lateralon 04-25 Chest PA and Lateral Normal [facility] Basic Metabolic Profile (BMP )on 04-24-2025 BUN/CRE 41.7 RATIO High 10-20 [facility] Comment on above: Performed By: #### L 501.2300, L100.0100, L501.5200, L500.2500 ####[facility] [address] [place], [address] Calcium [Mass/Vol] 8.6 mg/dL Normal 7.6-11.0 [facility] Comment on above: Performed By: #### L 501.2300, L100.0100, L501.5200, L500.2500 ####[facility] [address] [place], [address] Chloride [Moles/Vol] 107 mmol/L Normal 98-108 [facility] Comment on above: Performed By: #### L 501.2300, L100.0100, L501.5200, L500.2500 ####[facility] [address] [place], [address] CO2 [Moles/Vol] 24.6 mmol/L Normal 21.0-32.0 [facility] Comment on above: Performed By: #### L 501.2300, L100.0100, L501.5200, L500.2500 ####[facility] [address] [place], [address] Creatinine [Mass/Vol] 1.14 mg/dL Normal 0.70-1.20 [facility] Comment on above: Performed By: #### L 501.2300, L100.0100, L501.5200, L500.2500 ####[facility] [address] [place], [address] ECRCL 37.82 ml/min Low 50-250 [facility] Comment on above: Performed By: #### L 501.2300, L100.0100, L501.5200, L500.2500 ####[facility] [address] [place], [address] GAP 9 Normal 5-15 [facility] Comment on above: Performed By: #### L 501.2300, L100.0100, L501.5200, L500.2500 ####[facility] [address] [place], [address] GFR/1.73 sq M.predicted among non-blacks MDRD (S/P/Bld) [Vol rate/Area] 47 mL/min/{1.73_m2} Low >60 [facility] Comment on above: Result Comment: mL/m in/1.73m2 CKD-EPI Creatinine Equation (2020) Performed By: #### L 501.2300, L100.0100, L501.5200, L500.2500 ####[facility] [address] [place], [address] Glucose [Mass/Vol] 169 mg/dL High 70-99 [facility] Comment on above: Performed By: #### L 501.2300, L100.0100, L501.5200, L500.2500 ####[facility] [address] [place], [address] Potassium [Moles/Vol] 3.9 mmol/L Normal 3.3-5.1 [facility] Comment on above: Performed By: #### L 501.2300, L100.0100, L501.5200, L500.2500 ####[facility] [address] [place], [address] Sodium [Moles/Vol] 140 mmol/L Normal 133-145 [facility] Comment on above: Performed By: #### L 501.2300, L100.0100, L501.5200, L500.2500 ####[facility] [address] [place], [address] Urea nitrogen [Mass/Vol] 48 mg/dL High 4-19 [facility] Comment on above: Performed By: #### L 501.2300, L100.0100, L501.5200, L500.2500 ####[facility] [address] [place], [address] Bedside Glucoseon 04-24-2025 FINGERSTICK GLU 134 mg/dL High 74-106 [facility] Comment on above: Result Comment: RUSSELL GEMENT OF PATIENT CARE PER NURSING PROTOCOL Performed By: #### L 501.080 ####[facility] [address] [place], [address] FINGERSTICK GLU 128 mg/dL High 74-106 [facility] Comment on above: Result Comment: RUSSELL GEMENT OF PATIENT CARE PER NURSING PROTOCOL Performed By: #### L 501.080 ####[facility] [address] [place], [address] Body Fluid Culton 04-24-2025 BFC No growth-Final to follow Normal [facility] Comment on above: Performed By: #### M 100.2900, L504.0250, M100.2000, L503.0300, M100.4001, L200.0200, L503.0100 ####[facility] [address] [place], [address] CBC W/Diff, Automatedon 06-0 Absolute Lymph 0.86 X10 3/uL Normal 0.83-4.51 [facility] Comment on above: Performed By: #### L 501.2300, L100.0100, L501.5200, L500.2500 ####[facility] [address] [place], [address] Absolute Neut 9.6 X10 3/uL High 2.0-7.7 [facility] Comment on above: Performed By: #### L 501.2300, L100.0100, L501.5200, L500.2500 ####[facility] [address] [place], [address] Basophils/100 WBC (Bld) 0.4 % Normal 0-1 [facility] Comment on above: Performed By: #### L 501.2300, L100.0100, L501.5200, L500.2500 ####[facility] [address] [place], [address] Eosinophils/100 WBC (Bld) 2.7 % Normal 0-5 [facility] Comment on above: Performed By: #### L 501.2300, L100.0100, L501.5200, L500.2500 ####[facility] [facility] [address] [place], [address] Erythrocyte distribution width (RBC) [Ratio] 16.2 % High 11.6-14.6 [facility] Comment on above: Performed By: #### L 501.2300, L100.0100, L501.5200, L500.2500 ####[facility] [address] [place], [address] Hematocrit (Bld) [Volume fraction] 33.1 % Low 37-47 [facility] Comment on above: Performed By: #### L 501.2300, L100.0100, L501.5200, L500.2500 ####[facility] [address] [place], [address] Hemoglobin (Bld) [Mass/Vol] 10.3 g/dL Low 12.0-15.0 [facility] Comment on above: Performed By: #### L 501.2300, L100.0100, L501.5200, L500.2500 ####[facility] [address] [place], [address] IG% 0.900 Normal 0.0-0.9 [facility] Comment on above: Result Comment: IG% - Immature Granulocytes (promyelocytes, myelocytes andmetamyelocytes) > 1% indicates that a LEFT SHIFT is Present. Performed By: #### L 501.2300, L100.0100, L501.5200, L500.2500 ####[facility] [address] [place], [address] Lymphocytes/100 WBC (Bld) 7.3 % Low 19-41 [facility] Comment on above: Performed By: #### L 501.2300, L100.0100, L501.5200, L500.2500 ####[facility] [address] [place], [address] MCH (RBC) [Entitic mass] 27.6 pg Normal 27.0-32.0 [facility] Comment on above: Performed By: #### L 501.2300, L100.0100, L501.5200, L500.2500 ####[facility] [address] [place], [address] MCHC (RBC) [Mass/Vol] 31.1 g/dL Low 32-36 [facility] Comment on above: Performed By: #### L 501.2300, L100.0100, L501.5200, L500.2500 ####[facility] [address] [place], [address] MCV (RBC) [Entitic vol] 88.7 fL Normal 81-99 [facility] Comment on above: Performed By: #### L 501.2300, L100.0100, L501.5200, L500.2500 ####[facility] [address] [place], [address] Monocytes/100 WBC (Bld) 7.1 % Normal 0-10 [facility] Comment on above: Performed By: #### L 501.2300, L100.0100, L501.5200, L500.2500 ####[facility] [address] [place], [address] Neutrophils/100 WBC (Bld) 81.6 % High 47-70 [facility] Comment on above: Performed By: #### L 501.2300, L100.0100, L501.5200, L500.2500 ####[facility] [address] [place], [address] Nucleated RBC (Bld) [#/Vol] 0.2 10*3/uL Normal 0-5 [facility] Comment on above: Performed By: #### L 501.2300, L100.0100, L501.5200, L500.2500 ####[facility] [address] [place], [address] Platelet mean volume (Bld) [Entitic vol] 9.9 fL Normal 6.2-12.0 [facility] Comment on above: Performed By: #### L 501.2300, L100.0100, L501.5200, L500.2500 ####[facility] [address] [place], [address] Platelets (Bld) [#/Vol] 299 10*3/uL Normal 150-450 [facility] Comment on above: Performed By: #### L 501.2300, L100.0100, L501.5200, L500.2500 ####[facility] [address] [place], [address] RBC (Bld) [#/Vol] 3.73 10*6/uL Low 4.2-5.4 [facility] Comment on above: Performed By: #### L 501.2300, L100.0100, L501.5200, L500.2500 ####[facility] [address] [place], [address] RDW SD 52.6 fl High 35.1-43.9 [facility] Comment on above: Performed By: #### L 501.2300, L100.0100, L501.5200, L500.2500 ####[facility] [address] [place], [address] WBC (Bld) [#/Vol] 11.7 10*3/uL High 4.4-11.0 [facility] Comment on above: Performed By: #### L 501.2300, L100.0100, L501.5200, L500.2500 ####[facility] [address] [place], [address] CBC-Complete Blood Cnt No Di ffon 04-24-2025 Erythrocyte distribution width (RBC) [Ratio] 13.7 % Normal 11.6-14.6 [facility] Comment on above: Result Comment: ICU CALLED AND REQUESTED CANCELLED DUE TO WRONG PATIENTBLOOD. Performed By: #### L 501.2300, L100.0500, L500.4050, L501.5200 ####[facility] [address] [place], [address] Hematocrit (Bld) [Volume fraction] 24.1 % Low 37-47 [facility] Comment on above: Result Comment: ICU CALLED AND REQUESTED CANCELLED DUE TO WRONG PATIENTBLOOD. Performed By: #### L 501.2300, L100.0500, L500.4050, L501.5200 ####[facility] [address] [place], [address] Hemoglobin (Bld) [Mass/Vol] 7.8 g/dL Low 12.0-15.0 [facility] Comment on above: Result Comment: ICU CALLED AND REQUESTED CANCELLED DUE TO WRONG PATIENTBLOOD. Performed By: #### L 501.2300, L100.0500, L500.4050, L501.5200 ####[facility] [address] [place], [address] MCH (RBC) [Entitic mass] 30.0 pg Normal 27.0-32.0 [facility] Comment on above: Result Comment: ICU CALLED AND REQUESTED CANCELLED DUE TO WRONG PATIENTBLOOD. Performed By: #### L 501.2300, L100.0500, L500.4050, L501.5200 ####[facility] [address] [place], [address] MCHC (RBC) [Mass/Vol] 32.4 g/dL Normal 32-36 [facility] Comment on above: Result Comment: ICU CALLED AND REQUESTED CANCELLED DUE TO WRONG PATIENTBLOOD. Performed By: #### L 501.2300, L100.0500, L500.4050, L501.5200 ####[facility] [address] [place], [address] MCV (RBC) [Entitic vol] 92.7 fL Normal 81-99 [facility] Comment on above: Result Comment: ICU CALLED AND REQUESTED CANCELLED DUE TO WRONG PATIENTBLOOD. Performed By: #### L 501.2300, L100.0500, L500.4050, L501.5200 ####[facility] [address] [place], [address] Platelet mean volume (Bld) [Entitic vol] 11.5 fL Normal 6.2-12.0 [facility] Comment on above: Result Comment: ICU CALLED AND REQUESTED CANCELLED DUE TO WRONG PATIENTBLOOD. Performed By: #### L 501.2300, L100.0500, L500.4050, L501.5200 ####[facility] [address] [place], [address] Platelets (Bld) [#/Vol] 250 10*3/uL Normal 150-450 [facility] Comment on above: Result Comment: ICU CALLED AND REQUESTED CANCELLED DUE TO WRONG PATIENTBLOOD. Performed By: #### L 501.2300, L100.0500, L500.4050, L501.5200 ####[facility] [address] [place], [address] RBC (Bld) [#/Vol] 2.60 10*6/uL Low 4.2-5.4 [facility] Comment on above: Result Comment: ICU CALLED AND REQUESTED CANCELLED DUE TO WRONG PATIENTBLOOD. Performed By: #### L 501.2300, L100.0500, L500.4050, L501.5200 ####[facility] [address] [place], [address] RDW SD 46.6 fl High 35.1-43.9 [facility] Comment on above: Result Comment: ICU CALLED AND REQUESTED CANCELLED DUE TO WRONG PATIENTBLOOD. Performed By: #### L 501.2300, L100.0500, L500.4050, L501.5200 ####[facility] [address] [place], [address] WBC (Bld) [#/Vol] 26.8 10*3/uL High 4.4-11.0 [facility] Comment on above: Result Comment: ICU CALLED AND REQUESTED CANCELLED DUE TO WRONG PATIENTBLOOD. Performed By: #### L 501.2300, L100.0500, L500.4050, L501.5200 ####[facility] [address] [place], [address] [facility] [facility] Telephone (INTMWS) BLESSING JACKSON I ([id number]) 1940 F Date Time Provider Department 04/24/25 JEANA GUERRA INTWS During your visit today, we recorded the following information about you: Mckayla Card, BASIL 04/24/2025 9:41 AM Signed Pts son in law called in and reports Pt is still in the hospital from last Tuesday. He states they are going to go down to Medical Records to sign release of records and have them fax over the records from Pts hospital visit to Dr Guerra's office. He then wanted to give Dr Guerra an update on the Pt. He states she had a Thoracentesis Tuesday to clear out the buildup of fluid. He reports she filled back up and Tuesday she had he second Thoracentesis. They are going to do an x-ray on to see how she is doing with possible discharge home or to a [facility], to see why the fluid keeps building up on her lungs due to an underlying cardiac issue. They would like provider to call Pts cell phone back to discuss with family. Please call and advise. BASIL Ruiz Chitra, MD 04/25/2025 6:04 PM Signed Called patient and Son Called a couple times but non one answered the phone . Regards, Jeana Geurra MD Allergies As of Date: 04/24/2025 Noted Allergy Reaction LOVENOX (ENOXAPARIN SODIUM) 04/14/2012 [...] Fully Assessed Reason for Visit: Patient Update [3454] Patient Question [3217] Prescriptions as of 04/25/2025 - simvastatin (ZOCOR) 20 mg tablet Take [...] (DYMISTA) 137-50 mcg/spray nasal spray Use 1 Milaca in each nostril two times a day. [...] tablet daily. Problem List As Of Date 04/24/2025 Noted Resolved Essential hypertension [I10] Hypothyroidism [E03.9] [...] history of bilateral hip replacements [Z*11/21/2012 03/18/2022 Hist (more content not included)... Normal [facility] Metabolic Prof vton 04-24-2025 ALB Normal 3.4-4.8 [facility] Comment on above: Result Comment: ICU REQUESTED CANCELLED DUE TO WRONG PATIENT BLOOD. Performed By: #### L 501.2300, L100.0500, L500.4050, L501.5200 ####[facility] [address] [place], [address] ALK PHOS Normal 35-104 [facility] Comment on above: Result Comment: ICU REQUESTED CANCELLED DUE TO WRONG PATIENT BLOOD. Performed By: #### L 501.2300, L100.0500, L500.4050, L501.5200 ####[facility] [address] [place], [address] ALT Normal <=34 [facility] Comment on above: Result Comment: ICU REQUESTED CANCELLED DUE TO WRONG PATIENT BLOOD. Performed By: #### L 501.2300, L100.0500, L500.4050, L501.5200 ####[facility] [address] [place], [address] AST Normal <=31 [facility] Comment on above: Result Comment: ICU REQUESTED CANCELLED DUE TO WRONG PATIENT BLOOD. Performed By: #### L 501.2300, L100.0500, L500.4050, L501.5200 ####[facility] [address] [place], [address] BUN Normal 4-19 [facility] Comment on above: Result Comment: ICU REQUESTED CANCELLED DUE TO WRONG PATIENT BLOOD. Performed By: #### L 501.2300, L100.0500, L500.4050, L501.5200 ####[facility] [address] [place], [address] BUN/CRE Normal 10-20 [facility] Comment on above: Result Comment: ICU REQUESTED CANCELLED DUE TO WRONG PATIENT BLOOD. Performed By: #### L 501.2300, L100.0500, L500.4050, L501.5200 ####[facility] [address] [place], [address] Calcium Normal 7.6-11.0 [facility] Comment on above: Result Comment: ICU REQUESTED CANCELLED DUE TO WRONG PATIENT BLOOD. Performed By: #### L 501.2300, L100.0500, L500.4050, L501.5200 ####[facility] [address] [place], [address] CL Normal 98-108 [facility] Comment on above: Result Comment: ICU REQUESTED CANCELLED DUE TO WRONG PATIENT BLOOD. Performed By: #### L 501.2300, L100.0500, L500.4050, L501.5200 ####[facility] [address] [place], [address] CO2 Normal 21.0-32.0 [facility] Comment on above: Result Comment: ICU REQUESTED CANCELLED DUE TO WRONG PATIENT BLOOD. Performed By: #### L 501.2300, L100.0500, L500.4050, L501.5200 ####[facility] [address] [place], [address] CREAT,SERUM Normal 0.70-1.20 [facility] Comment on above: Result Comment: ICU REQUESTED CANCELLED DUE TO WRONG PATIENT BLOOD. Performed By: #### L 501.2300, L100.0500, L500.4050, L501.5200 ####[facility] [address] [place], [address] eGFR Normal >60 [facility] Comment on above: Result Comment: ICU REQUESTED CANCELLED DUE TO WRONG PATIENT BLOOD. Performed By: #### L 501.2300, L100.0500, L500.4050, L501.5200 ####[facility] [address] [place], [address] GAP Normal 5-15 [facility] Comment on above: Result Comment: ICU REQUESTED CANCELLED DUE TO WRONG PATIENT BLOOD. Performed By: #### L 501.2300, L100.0500, L500.4050, L501.5200 ####[facility] [address] [place], [address] GLU Normal 70-99 [facility] Comment on above: Result Comment: ICU REQUESTED CANCELLED DUE TO WRONG PATIENT BLOOD. Performed By: #### L 501.2300, L100.0500, L500.4050, L501.5200 ####[facility] [address] [place], [address] Potassium Normal 3.3-5.1 [facility] Comment on above: Result Comment: ICU REQUESTED CANCELLED DUE TO WRONG PATIENT BLOOD. Performed By: #### L 501.2300, L100.0500, L500.4050, L501.5200 ####[facility] [address] [place], [address] T BILI Normal 0.00-1.30 [facility] Comment on above: Result Comment: ICU REQUESTED CANCELLED DUE TO WRONG PATIENT BLOOD. Performed By: #### L 501.2300, L100.0500, L500.4050, L501.5200 ####[facility] [address] [place], [address] T PROT Normal 5.9-8.4 [facility] Comment on above: Result Comment: ICU REQUESTED CANCELLED DUE TO WRONG PATIENT BLOOD. Performed By: #### L 501.2300, L100.0500, L500.4050, L501.5200 ####[facility] [address] [place], [address] Comprehensive Metabolic Profil Normal 133-145 [facility] Comment on above: Result Comment: ICU REQUESTED CANCELLED DUE TO WRONG PATIENT BLOOD. Performed By: #### L 501.2300, L100.0500, L500.4050, L501.5200 ####[facility] [address] [place], [address] Culture, Anaerobic Any Sourc deangelo 04-24-2025 CUAN No growth in 48 hours. Normal [facility] Comment on above: Performed By: #### M 100.2900, L504.0250, M100.2000, L503.0300, M100.4001, L200.0200, L503.0100 ####[facility] [address] [place], [address] Magnesiumon 04-24-2025 Magnesium [Mass/Vol] 2.1 mg/dL Normal 1.5-2.2 [facility] Comment on above: Performed By: #### L 501.2300, L100.0100, L501.5200, L500.2500 ####[facility] [address] [place], [address] Magnesium [Mass/Vol] 2.2 mg/dL Normal 1.5-2.2 [facility] Comment on above: Order Comment: ICU R EQUESTED CANCELLED DUE TO WRONG PATIENT BLOOD. Result Comment: ICU REQUESTED CANCELLED DUE TO WRONG PATIENT BLOOD. Performed By: #### L 501.2300, L100.0500, L500.4050, L501.5200 ####[facility] [address] [place], [address] Phosphoruson 04-24-2025 Phosphate [Mass/Vol] 2.2 mg/dL Low 2.7-4.5 [facility] Comment on above: Performed By: #### L 501.2300, L100.0100, L501.5200, L500.2500 ####[facility] [address] [place], [address] Phosphate [Mass/Vol] 2.4 mg/dL Low 2.7-4.5 [facility] Comment on above: Order Comment: ICU R EQUESTED CANCELLED DUE TO WRONG PATIENT BLOOD. Result Comment: ICU REQUESTED CANCELLED DUE TO WRONG PATIENT BLOOD. Performed By: #### L 501.2300, L100.0500, L500.4050, L501.5200 ####[facility] [address] [place], [address] Basic Metabolic Profile (BMP )on 04-23-2025 BUN/CRE 48.2 RATIO High 10-20 [facility] Comment on above: Performed By: #### L 500.2500 ####[facility] [address] [place], [address] Calcium [Mass/Vol] 8.7 mg/dL Normal 7.6-11.0 [facility] Comment on above: Performed By: #### L 500.2500 ####[facility] [address] [place], [address] Chloride [Moles/Vol] 108 mmol/L Normal 98-108 [facility] Comment on above: Performed By: #### L 500.2500 ####[facility] [address] [place], [address] CO2 [Moles/Vol] 23.2 mmol/L Normal 21.0-32.0 [facility] Comment on above: Performed By: #### L 500.2500 ####[facility] [address] [place], [address] Creatinine [Mass/Vol] 1.25 mg/dL High 0.70-1.20 [facility] Comment on above: Performed By: #### L 500.2500 ####[facility] [address] [place], [address] ECRCL 34.70 ml/min Low 50-250 [facility] Comment on above: Performed By: #### L 500.2500 ####[facility] [address] [place], [address] GAP 10 Normal 5-15 [facility] Comment on above: Performed By: #### L 500.2500 ####[facility] [address] [place], [address] GFR/1.73 sq M.predicted among non-blacks MDRD (S/P/Bld) [Vol rate/Area] 42 mL/min/{1.73_m2} Low >60 [facility] Comment on above: Result Comment: mL/m in/1.73m2 CKD-EPI Creatinine Equation (2020) Performed By: #### L 500.2500 ####[facility] [address] [place], [address] Glucose [Mass/Vol] 162 mg/dL High 70-99 [facility] Comment on above: Performed By: #### L 500.2500 ####[facility] [address] [place], [address] Potassium [Moles/Vol] 3.9 mmol/L Normal 3.3-5.1 [facility] Comment on above: Result Comment: Hemo lysis present, Results??could be affected.?? Performed By: #### L 500.2500 ####[facility] [address] [place], [address] Sodium [Moles/Vol] 142 mmol/L Normal 133-145 [facility] Comment on above: Performed By: #### L 500.2500 ####[facility] [address] [place], [address] Urea nitrogen [Mass/Vol] 60 mg/dL High 4-19 [facility] Comment on above: Performed By: #### L 500.2500 ####[facility] [address] [place], [address] Bedside Glucoseon 04-23-2025 FINGERSTICK GLU 125 mg/dL High 74-106 [facility] Comment on above: Result Comment: RUSSELL GEMENT OF PATIENT CARE PER NURSING PROTOCOL Performed By: #### L 501.080 ####[facility] [address] [place], [address] FINGERSTICK GLU 128 mg/dL High 74-106 [facility] Comment on above: Result Comment: RUSSELL GEMENT OF PATIENT CARE PER NURSING PROTOCOL Performed By: #### L 501.080 ####[facility] [address] [place], [address] FINGERSTICK GLU 165 mg/dL High 74-106 [facility] Comment on above: Result Comment: RUSSELL GEMENT OF PATIENT CARE PER NURSING PROTOCOL Performed By: #### L 501.080 ####[facility] [address] [place], [address] FINGERSTICK GLU 146 mg/dL High 74-106 [facility] Comment on above: Result Comment: RUSSELL QUINTANILLA OF PATIENT CARE PER NURSING PROTOCOL Performed By: #### L 501.080 ####[facility] [address] [place], [place], [address] Culture, Blood (WB)on 2024 CUB blood cultures x2, f rom 2 different sites No growth in 5 days. Normal [facility] Comment on above: Performed By: #### M 200.1000 ####[facility] [address] [place] [id number] GIRMA w/ Reflex Mult Confirmon 04-22-2025 GIRMA,DIRECT Negative Normal Negative [facility] Comment on above: Result Comment: Perf ormed at: [facility] [place] [id number] Director: Truman Maier PhD, Phone: [phone] Performed By: #### L 3100.5450 ####[facility] [address] [place] [id number] ANCAon 04-22-2025 Atypical pANCA 1:20 Abnormal Neg:<1:20 [facility] Comment on above: Result Comment: The atypical pANCA pattern has been observed in asignificant percentage of patients with ulcerative colitis,primary sclerosing cholangitis and autoimmune hepatitis. Performed By: #### L 3100.5700, L3300.1200 ####[facility] [address] [place] [id number] Cytoplasmic Ab <1:20 Normal Neg:<1:20 [facility] Comment on above: Performed By: #### L 3100.5700, L3300.1200 ####[facility] [address] [place], [place], [id number] Perinuclear Ab. <1:20 Normal Neg:<1:20 [facility] Comment on above: Result Comment: The presence of positive fluorescence exhibiting P-ANCA orC-ANCA patterns alone is not specific for the diagnosis ofWegener's Granulomatosis (WG) or microscopic polyangiitis.Decisions about treatment should not be based solely onANCA IFA results. The [employer] AN[employer] Consensusrecommends follow up testing of positive sera with both CT-3 and MPO-ANCA enzyme immunoassays. As many as 5% serumsamples are positive only by EIA. Ref. AM J Clin Yxqksu3745;111:507-513. Performed By: #### L 3100.5700, L3300.1200 ####[facility] [address] [place], [address] Basic Metabolic Profile (BMP )on 04-22-2025 BUN/CRE 50.8 RATIO High 10-20 [facility] Comment on above: Performed By: #### L 500.2500 ####[facility] [address] [place], [address] Calcium [Mass/Vol] 8.3 mg/dL Normal 7.6-11.0 [facility] Comment on above: Performed By: #### L 500.2500 ####[facility] [address] [place], [address] Chloride [Moles/Vol] 110 mmol/L High 98-108 [facility] Comment on above: Performed By: #### L 500.2500 ####[facility] [address] [place], [address] CO2 [Moles/Vol] 21.8 mmol/L Normal 21.0-32.0 [facility] Comment on above: Performed By: #### L 500.2500 ####[facility] [address] [place], [address] Creatinine [Mass/Vol] 1.38 mg/dL High 0.70-1.20 [facility] Comment on above: Performed By: #### L 500.2500 ####[facility] [address] [place], [address] ECRCL 31.43 ml/min Low 50-250 [facility] Comment on above: Performed By: #### L 500.2500 ####[facility] [address] [place], [address] GAP 11 Normal 5-15 [facility] Comment on above: Performed By: #### L 500.2500 ####[facility] [address] [place], [address] GFR/1.73 sq M.predicted among non-blacks MDRD (S/P/Bld) [Vol rate/Area] 38 mL/min/{1.73_m2} Low >60 [facility] Comment on above: Result Comment: mL/m in/1.73m2 CKD-EPI Creatinine Equation (2020) Performed By: #### L 500.2500 ####[facility] [address] [place], [address] Glucose [Mass/Vol] 152 mg/dL High 70-99 [facility] Comment on above: Performed By: #### L 500.2500 ####[facility] [address] [place], [address] Potassium [Moles/Vol] 4.2 mmol/L Normal 3.3-5.1 [facility] Comment on above: Result Comment: Hemo lysis present, Results??could be affected.?? Performed By: #### L 500.2500 ####[facility] [address] [place], [address] Sodium [Moles/Vol] 142 mmol/L Normal 133-145 [facility] Comment on above: Performed By: #### L 500.2500 ####[facility] [address] [place], [address] Urea nitrogen [Mass/Vol] 70 mg/dL High 4-19 [facility] [facility] Comment on above: Performed By: #### L 500.2500 ####[facility] [address] [place], [address] BUN/CRE 56.6 RATIO High 10-20 [facility] Comment on above: Performed By: #### L 100.0100, L500.2500 ####[facility] [address] [place], [address] Calcium [Mass/Vol] 6.3 mg/dL Invalid Interpretation Code 7.6-11.0 [facility] Comment on above: Result Comment: Crit ical Result(s) Called at: 0621 by:??EMERSON ANDRADE. Results read back by same. Performed By: #### L 100.0100, L500.2500 ####[facility] [address] [place], [address] Chloride [Moles/Vol] 118 mmol/L High 98-108 [facility] Comment on above: Performed By: #### L 100.0100, L500.2500 ####[facility] [address] [place], [address] CO2 [Moles/Vol] 19.1 mmol/L Low 21.0-32.0 [facility] Comment on above: Performed By: #### L 100.0100, L500.2500 ####[facility] [address] [place], [address] Creatinine [Mass/Vol] 1.03 mg/dL Normal 0.70-1.20 [facility] Comment on above: Performed By: #### L 100.0100, L500.2500 ####[facility] [address] [place], [address] ECRCL 42.11 ml/min Low 50-250 [facility] Comment on above: Performed By: #### L 100.0100, L500.2500 ####[facility] [address] [place], [address] GAP 7 Normal 5-15 [facility] Comment on above: Performed By: #### L 100.0100, L500.2500 ####[facility] [address] [place], [address] GFR/1.73 sq M.predicted among non-blacks MDRD (S/P/Bld) [Vol rate/Area] 53 mL/min/{1.73_m2} Low >60 [facility] Comment on above: Result Comment: mL/m in/1.73m2 CKD-EPI Creatinine Equation (2020) Performed By: #### L 100.0100, L500.2500 ####[facility] [address] [place], [address] Glucose [Mass/Vol] 126 mg/dL High 70-99 [facility] Comment on above: Performed By: #### L 100.0100, L500.2500 ####[facility] [address] [place], [address] Potassium [Moles/Vol] 2.9 mmol/L Low 3.3-5.1 [facility] Comment on above: Performed By: #### L 100.0100, L500.2500 ####[facility] [address] [place], [address] Sodium [Moles/Vol] 144 mmol/L Normal 133-145 [facility] Comment on above: Performed By: #### L 100.0100, L500.2500 ####[facility] [address] [place], [address] Urea nitrogen [Mass/Vol] 58 mg/dL High 4-19 [facility] Comment on above: Performed By: #### L 100.0100, L500.2500 ####[facility] [address] [place], [address] Bedside Glucoseon 04-22-2025 FINGERSTICK GLU 147 mg/dL High 74-106 [facility] Comment on above: Result Comment: RUSSELL QUINTANILLA OF PATIENT CARE PER NURSING PROTOCOL Performed By: #### L 501.080 ####[facility] [address] [place], [address] FINGERSTICK GLU 130 mg/dL High 74-106 [facility] Comment on above: Result Comment: RUSSELL GEMENT OF PATIENT CARE PER NURSING PROTOCOL Performed By: #### L 501.080 ####[facility] [address] [place], [address] FINGERSTICK GLU 141 mg/dL High 74-106 [facility] Comment on above: Result Comment: RUSSELL GEMENT OF PATIENT CARE PER NURSING PROTOCOL Performed By: #### L 501.080 ####[facility] [address] [place], [address] Body Fluid Cell Count+Diffon 04-22-2025 Lymphocytes (Bld) [#/Vol] 58 10*3/uL Normal [facility] Comment on above: Order Comment: The r eference interval(s) and other method performancespecifications are unavailable for this body fluid.Comparison of the result with concentration in the blood,serum, or plasma is recommended. Performed By: #### M 100.2900, L504.0250, M100.2000, L503.0300, M100.4001, L200.0200, L503.0100 ####[facility] [address] [place], [address] MACROPHAGES 63 Normal [facility] Comment on above: Order Comment: The r eference interval(s) and other method performancespecifications are unavailable for this body fluid.Comparison of the result with concentration in the blood,serum, or plasma is recommended. Performed By: #### M 100.2900, L504.0250, M100.2000, L503.0300, M100.4001, L200.0200, L503.0100 ####[facility] [address] [place], [address] MESOTHELIAL 4 Normal [facility] Comment on above: Order Comment: The r eference interval(s) and other method performancespecifications are unavailable for this body fluid.Comparison of the result with concentration in the blood,serum, or plasma is recommended. Performed By: #### M 100.2900, L504.0250, M100.2000, L503.0300, M100.4001, L200.0200, L503.0100 ####[facility] [address] [place], [address] MONO/BF 3 Normal [facility] Comment on above: Order Comment: The r eference interval(s) and other method performancespecifications are unavailable for this body fluid.Comparison of the result with concentration in the blood,serum, or plasma is recommended. Performed By: #### M 100.2900, L504.0250, M100.2000, L503.0300, M100.4001, L200.0200, L503.0100 ####[facility] [address] [place], [place], [address] PMN 35 Normal [facility] Comment on above: Order Comment: The r eference interval(s) and other method performancespecifications are unavailable for this body fluid.Comparison of the result with concentration in the blood,serum, or plasma is recommended. Performed By: #### M 100.2900, L504.0250, M100.2000, L503.0300, M100.4001, L200.0200, L503.0100 ####[facility] [address] [place], [place], [address] RBC/BF 0.011 10 6/ul Normal [facility] Comment on above: Order Comment: The r eference interval(s) and other method performancespecifications are unavailable for this body fluid.Comparison of the result with concentration in the blood,serum, or plasma is recommended. Performed By: #### M 100.2900, L504.0250, M100.2000, L503.0300, M100.4001, L200.0200, L503.0100 ####[facility] [address] [place], [address] APPEAR/BF CLOUDY Normal [facility] Comment on above: Order Comment: The r eference interval(s) and other method performancespecifications are unavailable for this body fluid.Comparison of the result with concentration in the blood,serum, or plasma is recommended. Performed By: #### M 100.2900, L504.0250, M100.2000, L503.0300, M100.4001, L200.0200, L503.0100 ####[facility] [address] [place], [address] COLOR/BF YELLOW Normal [facility] Comment on above: Order Comment: The r eference interval(s) and other method performancespecifications are unavailable for this body fluid.Comparison of the result with concentration in the blood,serum, or plasma is recommended. Performed By: #### M 100.2900, L504.0250, M100.2000, L503.0300, M100.4001, L200.0200, L503.0100 ####[facility] [address] [place], [address] BFM 2ND SPEC SEE COMMENT Normal [facility] Comment on above: Order Comment: The r eference interval(s) and other method performancespecifications are unavailable for this body fluid.Comparison of the result with concentration in the blood,serum, or plasma is recommended. Performed By: #### M 100.2900, L504.0250, M100.2000, L503.0300, M100.4001, L200.0200, L503.0100 ####[facility] [address] [place], [address] SOURCE/BF THORACENTESIS Normal [facility] Comment on above: Order Comment: The r eference interval(s) and other method performancespecifications are unavailable for this body fluid.Comparison of the result with concentration in the blood,serum, or plasma is recommended. Performed By: #### M 100.2900, L504.0250, M100.2000, L503.0300, M100.4001, L200.0200, L503.0100 ####[facility] [address] [place], [address] PATH COMM/BF May follow Normal [facility] Comment on above: Order Comment: The r eference interval(s) and other method performancespecifications are unavailable for this body fluid.Comparison of the result with concentration in the blood,serum, or plasma is recommended. Performed By: #### M 100.2900, L504.0250, M100.2000, L503.0300, M100.4001, L200.0200, L503.0100 ####[facility] [address] [place], [address] CBC W/Diff, Automatedon 06-0 2-2025 Absolute Lymph 0.56 X10 3/uL Low 0.83-4.51 [facility] Comment on above: Performed By: #### L 100.0100, L500.2500 ####[facility] [address] [place], [address] Absolute Neut 5.4 X10 3/uL Normal 2.0-7.7 [facility] Comment on above: Performed By: #### L 100.0100, L500.2500 ####[facility] [address] [place], [address] Basophils/100 WBC (Bld) 0.2 % Normal 0-1 [facility] Comment on above: Performed By: #### L 100.0100, L500.2500 ####[facility] [address] [place], [address] Eosinophils/100 WBC (Bld) 1.5 % Normal 0-5 [facility] Comment on above: Performed By: #### L 100.0100, L500.2500 ####[facility] [address] [place], [address] Erythrocyte distribution width (RBC) [Ratio] 16.4 % High 11.6-14.6 [facility] Comment on above: Performed By: #### L 100.0100, L500.2500 ####[facility] [address] [place], [address] Hematocrit (Bld) [Volume fraction] 28.4 % Low 37-47 [facility] Comment on above: Performed By: #### L 100.0100, L500.2500 ####[facility] [address] [place], [address] Hemoglobin (Bld) [Mass/Vol] 8.7 g/dL Low 12.0-15.0 [facility] Comment on above: Performed By: #### L 100.0100, L500.2500 ####[facility] [address] [place], [address] IG% 0.500 Normal 0.0-0.9 [facility] Comment on above: Result Comment: IG% - Immature Granulocytes (promyelocytes, myelocytes andmetamyelocytes) > 1% indicates that a LEFT SHIFT is Present. Performed By: #### L 100.0100, L500.2500 ####[facility] [address] [place], [address] Lymphocytes/100 WBC (Bld) 8.5 % Low 19-41 [facility] Comment on above: Performed By: #### L 100.0100, L500.2500 ####[facility] [address] [place], [address] MCH (RBC) [Entitic mass] 28.4 pg Normal 27.0-32.0 [facility] Comment on above: Performed By: #### L 100.0100, L500.2500 ####[facility] [address] [place], [address] MCHC (RBC) [Mass/Vol] 30.6 g/dL Low 32-36 [facility] Comment on above: Performed By: #### L 100.0100, L500.2500 ####[facility] [address] [place], [address] MCV (RBC) [Entitic vol] 92.8 fL Normal 81-99 [facility] Comment on above: Performed By: #### L 100.0100, L500.2500 ####[facility] [address] [place], [address] Monocytes/100 WBC (Bld) 7.3 % Normal 0-10 [facility] Comment on above: Performed By: #### L 100.0100, L500.2500 ####[facility] [address] [place], [address] Neutrophils/100 WBC (Bld) 82.0 % High 47-70 [facility] Comment on above: Performed By: #### L 100.0100, L500.2500 ####[facility] [address] [place], [address] Nucleated RBC (Bld) [#/Vol] 0 10*3/uL Normal 0-5 [facility] Comment on above: Performed By: #### L 100.0100, L500.2500 ####[facility] [address] [place], [address] Platelet mean volume (Bld) [Entitic vol] 9.8 fL Normal 6.2-12.0 [facility] Comment on above: Performed By: #### L 100.0100, L500.2500 ####[facility] [address] [place], [address] Platelets (Bld) [#/Vol] 183 10*3/uL Normal 150-450 [facility] Comment on above: Performed By: #### L 100.0100, L500.2500 ####[facility] [address] [place], [address] RBC (Bld) [#/Vol] 3.06 10*6/uL Low 4.2-5.4 [facility] Comment on above: Performed By: #### L 100.0100, L500.2500 ####[facility] [address] [place], [address] RDW SD 55.7 fl High 35.1-43.9 [facility] Comment on above: Performed By: #### L 100.0100, L500.2500 ####[facility] [address] [place], [address] WBC (Bld) [#/Vol] 6.6 10*3/uL Normal 4.4-11.0 [facility] Comment on above: Performed By: #### L 100.0100, L500.2500 ####[facility] [address] [place], [address] Chest 1 View (Portable)on Chest 1 View (Portable) Normal [facility] Chest Insp/Exp 2 Viewon Chest Insp/Exp 2 View Normal [facility] Complement C3on 04-22-2025 COMP C3 127 mg/dL Normal 82-167 [facility] Comment on above: Result Comment: Perf ormed at: - [facility] [address] [id number] Director: Truman Maier PhD, Phone: [phone] Performed By: #### L 9531.7810, E9312.5488 ####[facility] [address] [place], [address] Consultation - Intensiviston 04-22-2025 Consultation - [employer] Normal [facility] Glucose, Body Fluidon 2024 GLUC, BODY FLD 164 mg/dL Normal Not Establ. [facility] Comment on above: Performed By: #### M 100.2900, L504.0250, M100.2000, L503.0300, M100.4001, L200.0200, L503.0100 ####[facility] [address] [place], [address] Gram Stainon 04-22-2025 GS Centrifuged Specimen ? Culture performed on centrifuged specimen Gram Stain No organisms seen 4+ Red Blood Cells 1+ White Blood Cells Normal [facility] Comment on above: Performed By: #### M 100.2900, L504.0250, M100.2000, L503.0300, M100.4001, L200.0200, L503.0100 ####[facility] [address] [place], [address] LDHon 04-22-2025 LDH 231 U/L Normal 84-246 [facility] Comment on above: Result Comment: Hemo lysis present, Results??could be affected.?? Performed By: #### L 504.2610, L001.0705 ####[facility] [address] [place], [address] LDH,Body Fluidon 04-22-2025 LDH,BF 114 Units/L Normal Not Establ. [facility] Comment on above: Performed By: #### M 100.2900, L504.0250, M100.2000, L503.0300, M100.4001, L200.0200, L503.0100 ####[facility] [address] [place], [address] Partial Thromboplast Timeon 04-22-2025 aPTT Coag (Bld) [Time] 28.0 s Normal 24.1-36.2 [facility] Comment on above: Performed By: #### L 300.3900, L300.4310 ####[facility] [address] [place], [address] Protein Electroph, Son 04-22 Albumin [Mass/Vol] 2.7 g/dL Low 2.9-4.4 [facility] Comment on above: Performed By: #### L 3100.3450 ####[facility] [address] [place], [address] Albumin/Globulin [Mass ratio] 0.7 {ratio} Normal 0.7-1.7 [facility] Comment on above: Performed By: #### L 3100.3450 ####[facility] [address] [place], [address] ALPHA-1 GLOBUL 0.5 g/dL High 0.0-0.4 [facility] Comment on above: Performed By: #### L 3100.3450 ####[facility] [address] [place], [address] ALPHA-2 GLOBUL 1.1 g/dL High 0.4-1.0 [facility] Comment on above: Performed By: #### L 3100.3450 ####[facility] [address] [place], [address] BETA GLOBULIN 0.8 g/dL Normal 0.7-1.3 [facility] Comment on above: Performed By: #### L 3100.3450 ####[facility] [address] [place], [address] GAMMA GLOBULIN 1.4 g/dL Normal 0.4-1.8 [facility] Comment on above: Performed By: #### L 3100.3450 ####[facility] [address] [place], [address] Globulin (S) [Mass/Vol] 3.7 g/dL Normal 2.2-3.9 [facility] Comment on above: Performed By: #### L 3100.3450 ####[facility] [address] [place], [address] INTERPRETATION Comment Normal . [facility] Comment on above: Result Comment: Prot ein electrophoresis scan will follow via computer,mail, or manager supply chain planning delivery. Performed By: #### L 3100.3450 ####[facility] [address] [place], [address] M-SPIKE Comment: Normal Not Observed [facility] Comment on above: Result Comment: SPE shows an asymmetrical gamma. Performed By: #### L 3100.3450 ####[facility] [address] [place], [address] NOTE: Comment Normal . [facility] Comment on above: Result Comment: Sam t band in gamma region suspicious for monoclonalimmunoglobulin. This band may represent a benign spike asseen in older people or could be a paraprotein as seen inMultiple Myeloma, Waldenstrom's Macroglobulinemia orLymphoma. Depending on clinical circumstances, furtherdiagnostic studies may include serum immunofixation orserum free light chain quantitation.Performed at: [place] [id number] Director: Truman Maier PhD, Phone: [phone] Performed By: #### L 3100.3450 ####[facility] [address] [place], [address] Protein [Mass/Vol] 6.4 g/dL Normal 6.0-8.5 [facility] Comment on above: Performed By: #### L 3100.3450 ####[facility] [address] [place], [address] Protein, Body Fluidon 2024 Protein [Mass/Vol] 2.6 g/dL Normal Not Establ. [facility] Comment on above: Performed By: #### M 100.2900, L504.0250, M100.2000, L503.0300, M100.4001, L200.0200, L503.0100 ####[facility] [address] [place], [address] Protein, Totalon 04-22-2025 T PROT 5.9 g/dL Normal 5.9-8.4 [facility] Comment on above: Performed By: #### L 504.2610, L001.0705 ####[facility] [address] [place], [address] Prothrombin Time w/INRon INR Coag (PPP) [Relative time] 1.4 {INR} Normal [facility] Comment on above: Performed By: #### L 300.3900, L300.4310 ####[facility] [address] [place], [address] PT Coag (PPP) [Time] 17.5 s High 11.7-14.9 [facility] Comment on above: Performed By: #### L 300.3900, L300.4310 ####[facility] [address] [place], [address] Respiratory Cultureon 2024 RESPC Normal [facility] Comment on above: Performed By: #### M 100.2400, M100.2000 ####[facility] [address] [place], [address] Thoracentesis W USon 025 Thoracentesis W US Normal [facility] Basic Metabolic Profile (BMP )on 04-21-2025 BUN/CRE 48.0 RATIO High 10-20 [facility] Comment on above: Performed By: #### L 500.2500, L100.0100 ####[facility] [address] [place], [address] Calcium [Mass/Vol] 8.4 mg/dL Normal 7.6-11.0 [facility] Comment on above: Performed By: #### L 500.2500, L100.0100 ####[facility] [address] [place], [address] Chloride [Moles/Vol] 107 mmol/L Normal 98-108 [facility] Comment on above: Performed By: #### L 500.2500, L100.0100 ####[facility] [address] [place], [address] CO2 [Moles/Vol] 24.1 mmol/L Normal 21.0-32.0 [facility] Comment on above: Performed By: #### L 500.2500, L100.0100 ####[facility] [address] [place], [address] Creatinine [Mass/Vol] 1.98 mg/dL High 0.70-1.20 [facility] Comment on above: Performed By: #### L 500.2500, L100.0100 ####[facility] [address] [place], [address] ECRCL 21.37 ml/min Low 50-250 [facility] Comment on above: Performed By: #### L 500.2500, L100.0100 ####[facility] [address] [place], [address] GAP 11 Normal 5-15 [facility] Comment on above: Performed By: #### L 500.2500, L100.0100 ####[facility] [address] [place], [address] GFR/1.73 sq M.predicted among non-blacks MDRD (S/P/Bld) [Vol rate/Area] 24 mL/min/{1.73_m2} Low >60 [facility] Comment on above: Result Comment: mL/m in/1.73m2 CKD-EPI Creatinine Equation (2020) Performed By: #### L 500.2500, L100.0100 ####[facility] [address] [place], [address] Glucose [Mass/Vol] 156 mg/dL High 70-99 [facility] Comment on above: Performed By: #### L 500.2500, L100.0100 ####[facility] [address] [place], [address] Potassium [Moles/Vol] 4.3 mmol/L Normal 3.3-5.1 [facility] Comment on above: Result Comment: Hemo lysis present, Results??could be affected.?? Performed By: #### L 500.2500, L100.0100 ####[facility] [address] [place], [address] Sodium [Moles/Vol] 142 mmol/L Normal 133-145 [facility] Comment on above: Performed By: #### L 500.2500, L100.0100 ####[facility] [address] [place], [address] Urea nitrogen [Mass/Vol] 95 mg/dL High 4-19 [facility] Comment on above: Performed By: #### L 500.2500, L100.0100 ####[facility] [address] [place], [address] Bedside Glucoseon 04-21-2025 FINGERSTICK GLU 144 mg/dL High 74-106 [facility] Comment on above: Result Comment: RUSSELL GEMENT OF PATIENT CARE PER NURSING PROTOCOL Performed By: #### L 501.080 ####[facility] [address] [place], [address] FINGERSTICK GLU 160 mg/dL High 74-106 [facility] Comment on above: Result Comment: RUSSELL GEMENT OF PATIENT CARE PER NURSING PROTOCOL Performed By: #### L 501.080 ####[facility] [address] [place], [address] FINGERSTICK GLU 152 mg/dL High 74-106 [facility] Comment on above: Result Comment: RUSSELL GEMENT OF PATIENT CARE PER NURSING PROTOCOL Performed By: #### L 501.080 ####[facility] [address] [place], [address] CBC W/Diff, Automatedon 06-0 -2024 Absolute Lymph 0.65 X10 3/uL Low 0.83-4.51 [facility] Comment on above: Performed By: #### L 500.2500, L100.0100 ####[facility] [address] [place], [address] Absolute Neut 7.2 X10 3/uL Normal 2.0-7.7 [facility] Comment on above: Performed By: #### L 500.2500, L100.0100 ####[facility] [address] [place], [address] Basophils/100 WBC (Bld) 0.1 % Normal 0-1 [facility] Comment on above: Performed By: #### L 500.2500, L100.0100 ####[facility] [address] [place], [address] Eosinophils/100 WBC (Bld) 0.7 % Normal 0-5 [facility] [facility] Comment on above: Performed By: #### L 500.2500, L100.0100 ####[facility] [address] [place], [address] Erythrocyte distribution width (RBC) [Ratio] 16.4 % High 11.6-14.6 [facility] Comment on above: Performed By: #### L 500.2500, L100.0100 ####[facility] [address] [place], [address] Hematocrit (Bld) [Volume fraction] 34.8 % Low 37-47 [facility] Comment on above: Performed By: #### L 500.2500, L100.0100 ####[facility] [address] [place], [address] Hemoglobin (Bld) [Mass/Vol] 11.1 g/dL Low 12.0-15.0 [facility] Comment on above: Performed By: #### L 500.2500, L100.0100 ####[facility] [address] [place], [address] IG% 0.300 Normal 0.0-0.9 [facility] Comment on above: Result Comment: IG% - Immature Granulocytes (promyelocytes, myelocytes andmetamyelocytes) > 1% indicates that a LEFT SHIFT is Present. Performed By: #### L 500.2500, L100.0100 ####[facility] [address] [place], [address] Lymphocytes/100 WBC (Bld) 7.5 % Low 19-41 [facility] Comment on above: Performed By: #### L 500.2500, L100.0100 ####[facility] [address] [place], [address] MCH (RBC) [Entitic mass] 28.8 pg Normal 27.0-32.0 [facility] Comment on above: Performed By: #### L 500.2500, L100.0100 ####[facility] [address] [place], [address] MCHC (RBC) [Mass/Vol] 31.9 g/dL Low 32-36 [facility] Comment on above: Performed By: #### L 500.2500, L100.0100 ####[facility] [address] [place], [address] MCV (RBC) [Entitic vol] 90.2 fL Normal 81-99 [facility] Comment on above: Performed By: #### L 500.2500, L100.0100 ####[facility] [address] [place], [address] Monocytes/100 WBC (Bld) 8.5 % Normal 0-10 [facility] Comment on above: Performed By: #### L 500.2500, L100.0100 ####[facility] [address] [place], [address] Neutrophils/100 WBC (Bld) 82.9 % High 47-70 [facility] Comment on above: Performed By: #### L 500.2500, L100.0100 ####[facility] [address] [place], [address] Nucleated RBC (Bld) [#/Vol] 0 10*3/uL Normal 0-5 [facility] Comment on above: Performed By: #### L 500.2500, L100.0100 ####[facility] [address] [place], [address] Platelet mean volume (Bld) [Entitic vol] 9.7 fL Normal 6.2-12.0 [facility] Comment on above: Performed By: #### L 500.2500, L100.0100 ####[facility] [address] [place], [address] Platelets (Bld) [#/Vol] 240 10*3/uL Normal 150-450 [facility] Comment on above: Performed By: #### L 500.2500, L100.0100 ####[facility] [address] [place], [address] RBC (Bld) [#/Vol] 3.86 10*6/uL Low 4.2-5.4 [facility] Comment on above: Performed By: #### L 500.2500, L100.0100 ####[facility] [address] [place], [address] RDW SD 54.4 fl High 35.1-43.9 [facility] Comment on above: Performed By: #### L 500.2500, L100.0100 ####[facility] [address] [place], [address] WBC (Bld) [#/Vol] 8.7 10*3/uL Normal 4.4-11.0 [facility] Comment on above: Performed By: #### L 500.2500, L100.0100 ####[facility] [address] [place], [address] Consultation - Surgicalon Consultation - Surgical Normal [facility] Basic Metabolic Profile (BMP )on 04-20-2025 BUN/CRE 42.6 RATIO High 10-20 [facility] Comment on above: Performed By: #### L 100.0100, L500.2500 ####[facility] [address] [place], [address] Calcium [Mass/Vol] 8.7 mg/dL Normal 7.6-11.0 [facility] Comment on above: Performed By: #### L 100.0100, L500.2500 ####[facility] [address] [place], [address] Chloride [Moles/Vol] 99 mmol/L Normal 98-108 [facility] Comment on above: Performed By: #### L 100.0100, L500.2500 ####[facility] [address] [place], [address] CO2 [Moles/Vol] 23.8 mmol/L Normal 21.0-32.0 [facility] Comment on above: Performed By: #### L 100.0100, L500.2500 ####[facility] [address] [place], [address] Creatinine [Mass/Vol] 2.72 mg/dL High 0.70-1.20 [facility] Comment on above: Performed By: #### L 100.0100, L500.2500 ####[facility] [address] [place], [address] ECRCL 15.43 ml/min Low 50-250 [facility] Comment on above: Performed By: #### L 100.0100, L500.2500 ####[facility] [address] [place], [address] GAP 14 Normal 5-15 [facility] Comment on above: Performed By: #### L 100.0100, L500.2500 ####[facility] [address] [place], [address] GFR/1.73 sq M.predicted among non-blacks MDRD (S/P/Bld) [Vol rate/Area] 17 mL/min/{1.73_m2} Low >60 [facility] Comment on above: Result Comment: mL/m in/1.73m2 CKD-EPI Creatinine Equation (2020) Performed By: #### L 100.0100, L500.2500 ####[facility] [address] [place], [address] Glucose [Mass/Vol] 175 mg/dL High 70-99 [facility] Comment on above: Performed By: #### L 100.0100, L500.2500 ####[facility] [address] [place], [address] Potassium [Moles/Vol] 4.0 mmol/L Normal 3.3-5.1 [facility] Comment on above: Performed By: #### L 100.0100, L500.2500 ####[facility] [address] [place], [address] Sodium [Moles/Vol] 137 mmol/L Normal 133-145 [facility] Comment on above: Performed By: #### L 100.0100, L500.2500 ####[facility] [address] [place], [address] Urea nitrogen [Mass/Vol] 116 mg/dL Invalid Interpretation Code 4-19 [facility] Comment on above: Result Comment: Crit ical Result(s) Called to: Tory GRACIA ([facility]) by:Nabor??Results read back by same. Performed By: #### L 100.0100, L500.2500 ####[facility] [address] [place], [address] Bedside Glucoseon 04-20-2025 FINGERSTICK GLU 164 mg/dL High [address] [place] [address] Comment on above: Result Comment: RUSSELL GEMENT OF PATIENT CARE PER NURSING PROTOCOL Performed By: #### L 501.080 ####[facility] [address] [place], [address] FINGERSTICK GLU 150 mg/dL High -106 [facility] Comment on above: Result Comment: RUSSELL GEMENT OF PATIENT CARE PER NURSING PROTOCOL Performed By: #### L 501.080 ####[facility] [address] [place], [address] FINGERSTICK GLU 167 mg/dL High [address] [place] [address] Comment on above: Result Comment: RUSSELL GEMENT OF PATIENT CARE PER NURSING PROTOCOL Performed By: #### L 501.080 ####[facility] [address] [place], [address] FINGERSTICK GLU 172 mg/dL High [address] [place] [address] Comment on above: Result Comment: RUSSELL GEMENT OF PATIENT CARE PER NURSING PROTOCOL Performed By: #### L 501.080 ####[facility] [address] [place], [address] Body Fluid Cell Count+Diffon 04-20-2025 BFM 2ND SPEC SEE COMMENT Normal [facility] Comment on above: Order Comment: The r eference interval(s) and other method performancespecifications are unavailable for this body fluid.Comparison of the result with concentration in the blood,serum, or plasma is recommended.THORACENTESIS Performed By: #### L 200.0200 ####[facility] [address] [place], [address] CBC W/Diff, Automatedon 05-3 Absolute Lymph 0.75 X10 3/uL Low 0.83-4.51 [facility] Comment on above: Performed By: #### L 100.0100, L500.2500 ####[facility] [address] [place], [address] Absolute Neut 8.4 X10 3/uL High 2.0-7.7 [facility] Comment on above: Performed By: #### L 100.0100, L500.2500 ####[facility] [address] [place], [address] Basophils/100 WBC (Bld) 0.1 % Normal 0-1 [facility] Comment on above: Performed By: #### L 100.0100, L500.2500 ####[facility] [address] [place], [address] Eosinophils/100 WBC (Bld) 0.3 % Normal 0-5 [facility] Comment on above: Performed By: #### L 100.0100, L500.2500 ####[facility] [address] [place], [address] Erythrocyte distribution width (RBC) [Ratio] 16.5 % High 11.6-14.6 [facility] Comment on above: Performed By: #### L 100.0100, L500.2500 ####[facility] [address] [place], [address] Hematocrit (Bld) [Volume fraction] 34.7 % Low 37-47 [facility] Comment on above: Performed By: #### L 100.0100, L500.2500 ####[facility] [address] [place], [address] Hemoglobin (Bld) [Mass/Vol] 10.9 g/dL Low 12.0-15.0 [facility] Comment on above: Performed By: #### L 100.0100, L500.2500 ####[facility] [address] [place], [address] IG% 0.500 Normal 0.0-0.9 [facility] Comment on above: Result Comment: IG% - Immature Granulocytes (promyelocytes, myelocytes andmetamyelocytes) > 1% indicates that a LEFT SHIFT is Present. Performed By: #### L 100.0100, L500.2500 ####[facility] [address] [place], [address] Lymphocytes/100 WBC (Bld) 7.6 % Low 19-41 [facility] Comment on above: Performed By: #### L 100.0100, L500.2500 ####[facility] [address] [place], [address] MCH (RBC) [Entitic mass] 28.2 pg Normal 27.0-32.0 [facility] Comment on above: Performed By: #### L 100.0100, L500.2500 ####[facility] [address] [place], [address] MCHC (RBC) [Mass/Vol] 31.4 g/dL Low 32-36 [facility] Comment on above: Performed By: #### L 100.0100, L500.2500 ####[facility] [address] [place], [address] MCV (RBC) [Entitic vol] 89.7 fL Normal 81-99 [facility] Comment on above: Performed By: #### L 100.0100, L500.2500 ####[facility] [address] [place], [address] Monocytes/100 WBC (Bld) 7.2 % Normal 0-10 [facility] Comment on above: Performed By: #### L 100.0100, L500.2500 ####[facility] [address] [place], [address] Neutrophils/100 WBC (Bld) 84.3 % High 47-70 [facility] Comment on above: Performed By: #### L 100.0100, L500.2500 ####[facility] [address] [place], [address] Nucleated RBC (Bld) [#/Vol] 0 10*3/uL Normal 0-5 [facility] Comment on above: Performed By: #### L 100.0100, L500.2500 ####[facility] [address] [place], [address] Platelet mean volume (Bld) [Entitic vol] 9.7 fL Normal 6.2-12.0 [facility] Comment on above: Performed By: #### L 100.0100, L500.2500 ####[facility] [address] [place], [address] Platelets (Bld) [#/Vol] 278 10*3/uL Normal 150-450 [facility] Comment on above: Performed By: #### L 100.0100, L500.2500 ####[facility] [address] [place], [address] RBC (Bld) [#/Vol] 3.87 10*6/uL Low 4.2-5.4 [facility] Comment on above: Performed By: #### L 100.0100, L500.2500 ####[facility] [address] [place], [address] RDW SD 53.6 fl High 35.1-43.9 [facility] Comment on above: Performed By: #### L 100.0100, L500.2500 ####[facility] [address] [place], [address] WBC (Bld) [#/Vol] 9.9 10*3/uL Normal 4.4-11.0 [facility] Comment on above: Performed By: #### L 100.0100, L500.2500 ####[facility] [address] [place], [address] Chest 1 View (Portable)on Chest 1 View (Portable) Normal [facility] Basic Metabolic Profile (BMP )on 04-19-2025 BUN/CRE 36.9 RATIO High 10-20 [facility] Comment on above: Performed By: #### L 100.0100, L500.2500 ####[facility] [address] [place], [address] Calcium [Mass/Vol] 9.1 mg/dL Normal 7.6-11.0 [facility] Comment on above: Performed By: #### L 100.0100, L500.2500 ####[facility] [address] [place], [address] Chloride [Moles/Vol] 98 mmol/L Normal 98-108 [facility] Comment on above: Performed By: #### L 100.0100, L500.2500 ####[facility] [address] [place], [address] CO2 [Moles/Vol] 23.6 mmol/L Normal 21.0-32.0 [facility] Comment on above: Performed By: #### L 100.0100, L500.2500 ####[facility] [address] [place], [address] Creatinine [Mass/Vol] 2.93 mg/dL High 0.70-1.20 [facility] Comment on above: Performed By: #### L 100.0100, L500.2500 ####[facility] [address] [place], [address] ECRCL 14.44 ml/min Low 50-250 [facility] Comment on above: Performed By: #### L 100.0100, L500.2500 ####[facility] [address] [place], [address] GAP 14 Normal 5-15 [facility] Comment on above: Performed By: #### L 100.0100, L500.2500 ####[facility] [address] [place], [address] GFR/1.73 sq M.predicted among non-blacks MDRD (S/P/Bld) [Vol rate/Area] 15 mL/min/{1.73_m2} Low >60 [facility] Comment on above: Result Comment: mL/m in/1.73m2 CKD-EPI Creatinine Equation (2020) Performed By: #### L 100.0100, L500.2500 ####[facility] [address] [place], [address] Glucose [Mass/Vol] 169 mg/dL High 70-99 [facility] Comment on above: Performed By: #### L 100.0100, L500.2500 ####[facility] [address] [place], [address] Potassium [Moles/Vol] 4.1 mmol/L Normal 3.3-5.1 [facility] Comment on above: Performed By: #### L 100.0100, L500.2500 ####[facility] [address] [place], [address] Sodium [Moles/Vol] 136 mmol/L Normal 133-145 [facility] Comment on above: Performed By: #### L 100.0100, L500.2500 ####[facility] [address] [place], [address] Urea nitrogen [Mass/Vol] 108 mg/dL Invalid Interpretation Code 4-19 [facility] Comment on above: Result Comment: Crit ical Result(s) Called at 0809: by: TYREE SOTO.??Results read back by same. Performed By: #### L 100.0100, L500.2500 ####[facility] [address] [place], [address] Bedside Glucoseon 04-19-2025 FINGERSTICK GLU 154 mg/dL High 74-106 [facility] Comment on above: Result Comment: RUSSELL GEMENT OF PATIENT CARE PER NURSING PROTOCOL Performed By: #### L 501.080 ####[facility] [address] [place] [address] FINGERSTICK GLU 179 mg/dL High 74-106 [facility] Comment on above: Result Comment: RUSSELL GEMENT OF PATIENT CARE PER NURSING PROTOCOL Performed By: #### L 501.080 ####[facility] [address] [place] [address] FINGERSTICK GLU 146 mg/dL High 74-106 [facility] Comment on above: Result Comment: RUSSELL GEMENT OF PATIENT CARE PER NURSING PROTOCOL Performed By: #### L 501.080 ####[facility] [address] [place] [address] FINGERSTICK GLU 154 mg/dL High -106 [facility] Comment on above: Result Comment: RUSSELL GEMENT OF PATIENT CARE PER NURSING PROTOCOL Performed By: #### L 501.080 ####[facility] [address] [place] [address] Body Fluid Cell Count+Diffon 04-19-2025 PATH COMM/BF May follow Normal [facility] Comment on above: Order Comment: The r eference interval(s) and other method performancespecifications are unavailable for this body fluid.Comparison of the result with concentration in the blood,serum, or plasma is recommended.THORACENTESIS Performed By: #### L 200.0200 ####[facility] [address] [facility] [address] CBC W/Diff, Automatedon 05-3 0 Absolute Lymph 0.71 X10 3/uL Low 0.83-4.51 [facility] Comment on above: Performed By: #### L 100.0100, L500.2500 ####[facility] [address] [place], [address] Absolute Neut 11.1 X10 3/uL High 2.0-7.7 [facility] Comment on above: Performed By: #### L 100.0100, L500.2500 ####[facility] [address] [place], [address] Basophils/100 WBC (Bld) 0.2 % Normal 0-1 [facility] Comment on above: Performed By: #### L 100.0100, L500.2500 ####[facility] [address] [place], [address] Eosinophils/100 WBC (Bld) 0.2 % Normal 0-5 [facility] Comment on above: Performed By: #### L 100.0100, L500.2500 ####[facility] [address] [place], [address] Erythrocyte distribution width (RBC) [Ratio] 16.7 % High 11.6-14.6 [facility] Comment on above: Performed By: #### L 100.0100, L500.2500 ####[facility] [address] [place], [address] Hematocrit (Bld) [Volume fraction] 39.6 % Normal 37-47 [facility] Comment on above: Performed By: #### L 100.0100, L500.2500 ####[facility] [address] [place], [address] Hemoglobin (Bld) [Mass/Vol] 12.4 g/dL Normal 12.0-15.0 [facility] Comment on above: Performed By: #### L 100.0100, L500.2500 ####[facility] [address] [place], [address] IG% 0.800 Normal 0.0-0.9 [facility] Comment on above: Result Comment: IG% - Immature Granulocytes (promyelocytes, myelocytes andmetamyelocytes) > 1% indicates that a LEFT SHIFT is Present. Performed By: #### L 100.0100, L500.2500 ####[facility] [address] [place], [address] Lymphocytes/100 WBC (Bld) 5.6 % Low 19-41 [facility] Comment on above: Performed By: #### L 100.0100, L500.2500 ####[facility] [address] [place], [address] MCH (RBC) [Entitic mass] 28.0 pg Normal 27.0-32.0 [facility] Comment on above: Performed By: #### L 100.0100, L500.2500 ####[facility] [address] [place], [address] MCHC (RBC) [Mass/Vol] 31.3 g/dL Low 32-36 [facility] Comment on above: Performed By: #### L 100.0100, L500.2500 ####[facility] [address] [place], [address] MCV (RBC) [Entitic vol] 89.4 fL Normal 81-99 [facility] Comment on above: Performed By: #### L 100.0100, L500.2500 ####[facility] [address] [place], [address] Monocytes/100 WBC (Bld) 5.5 % Normal 0-10 [facility] Comment on above: Performed By: #### L 100.0100, L500.2500 ####[facility] [address] [place], [address] Neutrophils/100 WBC (Bld) 87.7 % High 47-70 [facility] Comment on above: Performed By: #### L 100.0100, L500.2500 ####[facility] [address] [place], [address] Nucleated RBC (Bld) [#/Vol] 0 10*3/uL Normal 0-5 [facility] Comment on above: Performed By: #### L 100.0100, L500.2500 ####[facility] [address] [place], [address] Platelet mean volume (Bld) [Entitic vol] 10.0 fL Normal 6.2-12.0 [facility] Comment on above: Performed By: #### L 100.0100, L500.2500 ####[facility] [address] [place], [address] Platelets (Bld) [#/Vol] 373 10*3/uL Normal 150-450 [facility] Comment on above: Performed By: #### L 100.0100, L500.2500 ####[facility] [address] [place], [address] RBC (Bld) [#/Vol] 4.43 10*6/uL Normal 4.2-5.4 [facility] Comment on above: Performed By: #### L 100.0100, L500.2500 ####[facility] [address] [place], [address] RDW SD 54.2 fl High 35.1-43.9 [facility] Comment on above: Performed By: #### L 100.0100, L500.2500 ####[facility] [address] [place], [address] WBC (Bld) [#/Vol] 12.6 10*3/uL High 4.4-11.0 [facility] Comment on above: Performed By: #### L 100.0100, L500.2500 ####[facility] [address] [place], [address] Chest Insp/Exp 2 Viewon 05-3 0 Chest Insp/Exp 2 View Normal [facility] Glucose, Body Fluidon 2024 GLUC, BODY FLD 173 mg/dL Normal Not Establ. [facility] Comment on above: Performed By: #### L 503.0300, L501.2300, L504.0250, L503.0100, L500.2500, L501.5200, L100.0100 ####[facility] [address] [place], [address] LDH,Body Fluidon 04-19-2025 LDH,BF 201 Units/L Normal Not Establ. [facility] Comment on above: Performed By: #### L 503.0300, L501.2300, L504.0250, L503.0100, L500.2500, L501.5200, L100.0100 ####[facility] [address] [place], [address] Partial Thromboplast Timeon 04-19-2025 aPTT Coag (Bld) [Time] 54.9 s High 24.1-36.2 [facility] Comment on above: Performed By: #### L 300.4310 ####[facility] [address] [place], [address] Protein, Body Fluidon 2024 Protein [Mass/Vol] 3.9 g/dL Normal Not Establ. [facility] Comment on above: Performed By: #### L 503.0300, L501.2300, L504.0250, L503.0100, L500.2500, L501.5200, L100.0100 ####[facility] [address] [place], [address] Prothrombin Time w/INRon INR Coag (PPP) [Relative time] 2.1 {INR} Normal [facility] Comment on above: Performed By: #### L 300.3900 ####[facility] [address] [place], [address] PT Coag (PPP) [Time] 23.8 s High 11.7-14.9 [facility] Comment on above: Performed By: #### L 300.3900 ####[facility] [address] [place], [address] Basic Metabolic Profile (BMP )on 04-18-2025 BUN/CRE 33.7 RATIO High 10-20 [facility] Comment on above: Performed By: #### L 503.0300, L501.2300, L504.0250, L503.0100, L500.2500, L501.5200, L100.0100 ####[facility] [address] [place], [address] Calcium [Mass/Vol] 9.3 mg/dL Normal 7.6-11.0 [facility] Comment on above: Performed By: #### L 503.0300, L501.2300, L504.0250, L503.0100, L500.2500, L501.5200, L100.0100 ####[facility] [address] [place], [address] Chloride [Moles/Vol] 100 mmol/L Normal 98-108 [facility] [facility] Comment on above: Performed By: #### L 503.0300, L501.2300, L504.0250, L503.0100, L500.2500, L501.5200, L100.0100 ####[facility] [address] [place], [address] CO2 [Moles/Vol] 24.2 mmol/L Normal 21.0-32.0 [facility] Comment on above: Performed By: #### L 503.0300, L501.2300, L504.0250, L503.0100, L500.2500, L501.5200, L100.0100 ####[facility] [address] [place], [address] Creatinine [Mass/Vol] 2.86 mg/dL High 0.70-1.20 [facility] Comment on above: Performed By: #### L 503.0300, L501.2300, L504.0250, L503.0100, L500.2500, L501.5200, L100.0100 ####[facility] [address] [place], [place], [id number] ECRCL 14.79 ml/min Low 50-250 [facility] Comment on above: Performed By: #### L 503.0300, L501.2300, L504.0250, L503.0100, L500.2500, L501.5200, L100.0100 ####[facility] [address] [place], [place], [phone] GAP 16 High 5-15 [facility] Comment on above: Performed By: #### L 503.0300, L501.2300, L504.0250, L503.0100, L500.2500, L501.5200, L100.0100 ####[facility] [address] [place], [place], [address] GFR/1.73 sq M.predicted among non-blacks MDRD (S/P/Bld) [Vol rate/Area] 16 mL/min/{1.73_m2} Low >60 [facility] Comment on above: Result Comment: mL/m in/1.73m2 CKD-EPI Creatinine Equation (2020) Performed By: #### L 503.0300, L501.2300, L504.0250, L503.0100, L500.2500, L501.5200, L100.0100 ####[facility] [address] [place], [place], [id number] Glucose [Mass/Vol] 191 mg/dL High 70-99 [facility] Comment on above: Performed By: #### L 503.0300, L501.2300, L504.0250, L503.0100, L500.2500, L501.5200, L100.0100 ####[facility] [address] [place], [address] Potassium [Moles/Vol] 4.4 mmol/L Normal 3.3-5.1 [facility] Comment on above: Performed By: #### L 503.0300, L501.2300, L504.0250, L503.0100, L500.2500, L501.5200, L100.0100 ####[facility] [address] [place], [address] Sodium [Moles/Vol] 140 mmol/L Normal 133-145 [facility] Comment on above: Performed By: #### L 503.0300, L501.2300, L504.0250, L503.0100, L500.2500, L501.5200, L100.0100 ####[facility] [address] [place], [address] Urea nitrogen [Mass/Vol] 96 mg/dL High 4-19 [facility] Comment on above: Performed By: #### L 503.0300, L501.2300, L504.0250, L503.0100, L500.2500, L501.5200, L100.0100 ####[facility] [address] [place], [address] Bedside Glucoseon 04-18-2025 FINGERSTICK GLU 167 mg/dL High 74-106 [facility] Comment on above: Result Comment: RUSSELL GEMENT OF PATIENT CARE PER NURSING PROTOCOL Performed By: #### L 501.080 ####[facility] [address] [place], [address] FINGERSTICK GLU 153 mg/dL High 74-106 [facility] Comment on above: Result Comment: RUSSELL GEMENT OF PATIENT CARE PER NURSING PROTOCOL Performed By: #### L 501.080 ####[facility] [address] [place], [address] FINGERSTICK GLU 181 mg/dL High 74-106 [facility] Comment on above: Result Comment: RUSSELL GEMENT OF PATIENT CARE PER NURSING PROTOCOL Performed By: #### L 501.080 ####[facility] [address] [place], [address] FINGERSTICK GLU 176 mg/dL High 74-106 [facility] Comment on above: Result Comment: RUSSELL GEMENT OF PATIENT CARE PER NURSING PROTOCOL Performed By: #### L 501.080 ####[facility] [address] [place], [address] CBC W/Diff, Automatedon 05-2 Absolute Lymph 0.49 X10 3/uL Low 0.83-4.51 [facility] Comment on above: Performed By: #### L 503.0300, L501.2300, L504.0250, L503.0100, L500.2500, L501.5200, L100.0100 ####[facility] [address] [place], [address] Absolute Neut 12.4 X10 3/uL High 2.0-7.7 [facility] Comment on above: Performed By: #### L 503.0300, L501.2300, L504.0250, L503.0100, L500.2500, L501.5200, L100.0100 ####[facility] [address] [place], [address] Basophils/100 WBC (Bld) 0.1 % Normal 0-1 [facility] Comment on above: Performed By: #### L 503.0300, L501.2300, L504.0250, L503.0100, L500.2500, L501.5200, L100.0100 ####[facility] [address] [place], [address] Eosinophils/100 WBC (Bld) 0.0 % Normal 0-5 [facility] Comment on above: Performed By: #### L 503.0300, L501.2300, L504.0250, L503.0100, L500.2500, L501.5200, L100.0100 ####[facility] [address] [place], [address] Erythrocyte distribution width (RBC) [Ratio] 16.7 % High 11.6-14.6 [facility] Comment on above: Performed By: #### L 503.0300, L501.2300, L504.0250, L503.0100, L500.2500, L501.5200, L100.0100 ####[facility] [address] [place], [address] Hematocrit (Bld) [Volume fraction] 39.6 % Normal 37-47 [facility] Comment on above: Performed By: #### L 503.0300, L501.2300, L504.0250, L503.0100, L500.2500, L501.5200, L100.0100 ####[facility] [address] [place], [address] Hemoglobin (Bld) [Mass/Vol] 12.7 g/dL Normal 12.0-15.0 [facility] Comment on above: Performed By: #### L 503.0300, L501.2300, L504.0250, L503.0100, L500.2500, L501.5200, L100.0100 ####[facility] [address] [place], [address] IG% 0.600 Normal 0.0-0.9 [facility] Comment on above: Result Comment: IG% - Immature Granulocytes (promyelocytes, myelocytes andmetamyelocytes) > 1% indicates that a LEFT SHIFT is Present. Performed By: #### L 503.0300, L501.2300, L504.0250, L503.0100, L500.2500, L501.5200, L100.0100 ####[facility] [address] [place], [address] Lymphocytes/100 WBC (Bld) 3.5 % Low 19-41 [facility] Comment on above: Performed By: #### L 503.0300, L501.2300, L504.0250, L503.0100, L500.2500, L501.5200, L100.0100 ####[facility] [address] [place], [address] MCH (RBC) [Entitic mass] 28.5 pg Normal 27.0-32.0 [facility] Comment on above: Performed By: #### L 503.0300, L501.2300, L504.0250, L503.0100, L500.2500, L501.5200, L100.0100 ####[facility] [address] [place], [address] MCHC (RBC) [Mass/Vol] 32.1 g/dL Normal 32-36 [facility] Comment on above: Performed By: #### L 503.0300, L501.2300, L504.0250, L503.0100, L500.2500, L501.5200, L100.0100 ####[facility] [address] [place], [address] MCV (RBC) [Entitic vol] 89.0 fL Normal 81-99 [facility] Comment on above: Performed By: #### L 503.0300, L501.2300, L504.0250, L503.0100, L500.2500, L501.5200, L100.0100 ####[facility] [address] [place], [address] Monocytes/100 WBC (Bld) 6.3 % Normal 0-10 [facility] Comment on above: Performed By: #### L 503.0300, L501.2300, L504.0250, L503.0100, L500.2500, L501.5200, L100.0100 ####[facility] [address] [place], [address] Neutrophils/100 WBC (Bld) 89.5 % High 47-70 [facility] Comment on above: Performed By: #### L 503.0300, L501.2300, L504.0250, L503.0100, L500.2500, L501.5200, L100.0100 ####[facility] [address] [place], [address] Nucleated RBC (Bld) [#/Vol] 0 10*3/uL Normal 0-5 [facility] Comment on above: Performed By: #### L 503.0300, L501.2300, L504.0250, L503.0100, L500.2500, L501.5200, L100.0100 ####[facility] [address] [place], [address] Platelet mean volume (Bld) [Entitic vol] 9.9 fL Normal 6.2-12.0 [facility] Comment on above: Performed By: #### L 503.0300, L501.2300, L504.0250, L503.0100, L500.2500, L501.5200, L100.0100 ####[facility] [address] [place], [address] Platelets (Bld) [#/Vol] 347 10*3/uL Normal 150-450 [facility] Comment on above: Performed By: #### L 503.0300, L501.2300, L504.0250, L503.0100, L500.2500, L501.5200, L100.0100 ####[facility] [address] [place], [address] RBC (Bld) [#/Vol] 4.45 10*6/uL Normal 4.2-5.4 [facility] Comment on above: Performed By: #### L 503.0300, L501.2300, L504.0250, L503.0100, L500.2500, L501.5200, L100.0100 ####[facility] [address] [place], [place], [phone](337) RDW SD 54.4 fl High 35.1-43.9 [facility] Comment on above: Performed By: #### L 503.0300, L501.2300, L504.0250, L503.0100, L500.2500, L501.5200, L100.0100 ####[facility] [address] [place], [place], [phone](015) WBC (Bld) [#/Vol] 13.8 10*3/uL High 4.4-11.0 [facility] Comment on above: Performed By: #### L 503.0300, L501.2300, L504.0250, L503.0100, L500.2500, L501.5200, L100.0100 ####[facility] [address] [place], [place], [phone] [facility] [facility] Telephone (INTMWS) BLESSING JACKSON I ([id number]) 1940 F Date Time Provider Department 04/18/25 JEANA GUERRA INTWS During your visit today, we recorded the following information about you: Sharon Hadley LPN 04/18/2025 1:55 PM Signed Patient Avinash kaur was admitted to [facility] on 04/16, gagging and spitting up [...] 04/19/2025 3:24 PM Signed Spouse Avinash contact: [phone] is correct. Spouse will have phone on [...] (DYMISTA) 137-50 mcg/spray nasal spray Use 1 Milaca in each nostril two times a day. [...] 02/14/2015 Mo (more content not included)... Normal [facility] Consultation - Cardiologyon 04-18-2025 Consultation - Cardiology Normal [facility] Consultation - Nephrologyon 04-18-2025 Consultation - Nephrology Normal [facility] Legionella Antigen Urineon 0 04-18-2025 LEGU Normal [facility] Comment on above: Performed By: #### M 300.4500, M300.4600 ####[facility] [address] [place], [place], [address] M100.019on 04-18-2025 M100.019 Negative Normal [facility] Comment on above: Performed By: #### M 100.019 ####[facility] [address] [place], [place], [address] Magnesiumon 04-18-2025 Magnesium [Mass/Vol] 2.5 mg/dL High 1.5-2.2 [facility] Comment on above: Performed By: #### L 503.0300, L501.2300, L504.0250, L503.0100, L500.2500, L501.5200, L100.0100 ####[facility] [address] [place], [address] Partial Thromboplast Timeon 04-18-2025 aPTT Coag (Bld) [Time] 101.3 s Invalid Interpretation Code 24.1-36.2 [facility] Comment on above: Order Comment: Comme nts: Time sensitive Heparin drip Result Comment: CRIT ICAL VALUE CALLED TO [id number]/29/25 2210 Sergio Pemberton.RESULTS READ BACK BY SAME. Performed By: #### L 300.4310 ####[facility] [address] [place], [address] aPTT Coag (Bld) [Time] 36.8 s High 24.1-36.2 [facility] Comment on above: Performed By: #### L 300.4310 ####[facility] [address] [place], [address] Phosphoruson 04-18-2025 Phosphate [Mass/Vol] 6.5 mg/dL High 2.7-4.5 [facility] Comment on above: Performed By: #### L 503.0300, L501.2300, L504.0250, L503.0100, L500.2500, L501.5200, L100.0100 ####[facility] [address] [place], [address] Protein+Creatinine Ratio,Uri neon 04-18-2025 PROT:CRE RATIO 965 mg/g CRE High 0-200 [facility] Comment on above: Performed By: #### L 501.0900 ####[facility] [address] [place], [address] Protein (U) [Mass/Vol] 76.7 mg/dL High 0.0-12.0 [facility] Comment on above: Performed By: #### L 501.0900 ####[facility] [address] [place], [address] UR CREAT 79.50 mg/dL Normal 28.00-217. 00 [facility] Comment on above: Performed By: #### L 501.0900 ####[facility] [address] [place], [address] Prothrombin Time w/INRon INR Coag (PPP) [Relative time] 2.5 {INR} Normal [facility] Comment on above: Performed By: #### L 300.3900 ####[facility] [address] [place], [address] PT Coag (PPP) [Time] 27.9 s High 11.7-14.9 [facility] Comment on above: Performed By: #### L 300.3900 ####[facility] [address] [place], [address] RESPIRATORY PANEL MOLECULARo n 04-18-2025 RP PANEL Normal [facility] Comment on above: Performed By: #### M 100.638 ####[facility] [address] [place], [address] Strep pneumoniae Antig(UR,CS F)on 04-18-2025 STPAG Normal [facility] Comment on above: Performed By: #### M 300.4500, M300.4600 ####[facility] [address] [place], [address] Basic Metabolic Profile (BMP )on 04-17-2025 BUN/CRE 30.0 RATIO High 10-20 [facility] Comment on above: Performed By: #### L 501.9985, L100.0100, L501.5200, L500.2500 ####[facility] [address] [place], [address] Calcium [Mass/Vol] 9.4 mg/dL Normal 7.6-11.0 [facility] Comment on above: Performed By: #### L 501.9985, L100.0100, L501.5200, L500.2500 ####[facility] [address] [place], [address] Chloride [Moles/Vol] 98 mmol/L Normal 98-108 [facility] Comment on above: Performed By: #### L 501.9985, L100.0100, L501.5200, L500.2500 ####[facility] [address] [place], [address] CO2 [Moles/Vol] 22.2 mmol/L Normal 21.0-32.0 [facility] Comment on above: Performed By: #### L 501.9985, L100.0100, L501.5200, L500.2500 ####[facility] [address] [place], [address] Creatinine [Mass/Vol] 2.62 mg/dL High 0.70-1.20 [facility] Comment on above: Performed By: #### L 501.9985, L100.0100, L501.5200, L500.2500 ####[facility] [address] [place], [address] ECRCL 16.15 ml/min Low 50-250 [facility] Comment on above: Performed By: #### L 501.9985, L100.0100, L501.5200, L500.2500 ####[facility] [address] [place], [address] GAP 18 High 5-15 [facility] Comment on above: Performed By: #### L 501.9985, L100.0100, L501.5200, L500.2500 ####[facility] [address] [place], [address] GFR/1.73 sq M.predicted among non-blacks MDRD (S/P/Bld) [Vol rate/Area] 17 mL/min/{1.73_m2} Low >60 [facility] Comment on above: Result Comment: mL/m in/1.73m2 CKD-EPI Creatinine Equation (2020) Performed By: #### L 501.9985, L100.0100, L501.5200, L500.2500 ####[facility] [address] [place], [address] Glucose [Mass/Vol] 173 mg/dL High 70-99 [facility] Comment on above: Performed By: #### L 501.9985, L100.0100, L501.5200, L500.2500 ####[facility] [address] [place], [address] Potassium [Moles/Vol] 4.9 mmol/L Normal 3.3-5.1 [facility] Comment on above: Performed By: #### L 501.9985, L100.0100, L501.5200, L500.2500 ####[facility] [address] [place], [address] Sodium [Moles/Vol] 138 mmol/L Normal 133-145 [facility] Comment on above: Performed By: #### L 501.9985, L100.0100, L501.5200, L500.2500 ####[facility] [address] [place], [address] Urea nitrogen [Mass/Vol] 79 mg/dL High 4-19 [facility] Comment on above: Performed By: #### L 501.9985, L100.0100, L501.5200, L500.2500 ####[facility] [address] [place], [address] Bedside Glucoseon 04-17-2025 FINGERSTICK GLU 205 mg/dL High 74-106 [facility] Comment on above: Result Comment: RUSSELL GEMENT OF PATIENT CARE PER NURSING PROTOCOL Performed By: #### L 501.080 ####[facility] [address] [place], [address] FINGERSTICK GLU 197 mg/dL High 74-106 [facility] Comment on above: Result Comment: RUSSELL GEMENT OF PATIENT CARE PER NURSING PROTOCOL Performed By: #### L 501.080 ####[facility] [address] [place], [address] FINGERSTICK GLU 174 mg/dL High 74-106 [facility] Comment on above: Result Comment: RUSSELL GEMENT OF PATIENT CARE PER NURSING PROTOCOL Performed By: #### L 501.080 ####[facility] [address] [place], [address] FINGERSTICK GLU 175 mg/dL High 74-106 [facility] Comment on above: Result Comment: RUSSELL GEMENT OF PATIENT CARE PER NURSING PROTOCOL Performed By: #### L 501.080 ####[facility] [address] [place], [address] CBC W/Diff, Automatedon 05-2 -2024 Absolute Lymph 0.60 X10 3/uL Low 0.83-4.51 [facility] Comment on above: Performed By: #### L 501.9985, L100.0100, L501.5200, L500.2500 ####[facility] [address] [place], [address] Absolute Neut 11.8 X10 3/uL High 2.0-7.7 [facility] Comment on above: Performed By: #### L 501.9985, L100.0100, L501.5200, L500.2500 ####[facility] [address] [place], [address] Basophils/100 WBC (Bld) 0.4 % Normal 0-1 [facility] Comment on above: Performed By: #### L 501.9985, L100.0100, L501.5200, L500.2500 ####[facility] [address] [place], [address] Eosinophils/100 WBC (Bld) 0.0 % Normal 0-5 [facility] Comment on above: Performed By: #### L 501.9985, L100.0100, L501.5200, L500.2500 ####[facility] [address] [place], [address] Erythrocyte distribution width (RBC) [Ratio] 16.8 % High 11.6-14.6 [facility] Comment on above: Performed By: #### L 501.9985, L100.0100, L501.5200, L500.2500 ####[facility] [address] [place], [address] Hematocrit (Bld) [Volume fraction] 41.3 % Normal 37-47 [facility] Comment on above: Performed By: #### L 501.9985, L100.0100, L501.5200, L500.2500 ####[facility] [address] [place], [address] Hemoglobin (Bld) [Mass/Vol] 13.0 g/dL Normal 12.0-15.0 [facility] Comment on above: Performed By: #### L 501.9985, L100.0100, L501.5200, L500.2500 ####[facility] [address] [place], [address] IG% 0.700 Normal 0.0-0.9 [facility] Comment on above: Result Comment: IG% - Immature Granulocytes (promyelocytes, myelocytes andmetamyelocytes) > 1% indicates that a LEFT SHIFT is Present. Performed By: #### L 501.9985, L100.0100, L501.5200, L500.2500 ####[facility] [address] [place], [address] Lymphocytes/100 WBC (Bld) 4.5 % Low 19-41 [facility] Comment on above: Performed By: #### L 501.9985, L100.0100, L501.5200, L500.2500 ####[facility] [address] [place], [address] MCH (RBC) [Entitic mass] 28.3 pg Normal 27.0-32.0 [facility] Comment on above: Performed By: #### L 501.9985, L100.0100, L501.5200, L500.2500 ####[facility] [address] [place], [address] MCHC (RBC) [Mass/Vol] 31.5 g/dL Low 32-36 [facility] Comment on above: Performed By: #### L 501.9985, L100.0100, L501.5200, L500.2500 ####[facility] [address] [place], [address] MCV (RBC) [Entitic vol] 90.0 fL Normal 81-99 [facility] Comment on above: Performed By: #### L 501.9985, L100.0100, L501.5200, L500.2500 ####[facility] [address] [place], [address] Monocytes/100 WBC (Bld) 6.7 % Normal 0-10 [facility] Comment on above: Performed By: #### L 501.9985, L100.0100, L501.5200, L500.2500 ####[facility] [address] [place], [address] Neutrophils/100 WBC (Bld) 87.7 % High 47-70 [facility] Comment on above: Performed By: #### L 501.9985, L100.0100, L501.5200, L500.2500 ####[facility] [address] [place], [address] Nucleated RBC (Bld) [#/Vol] 0 10*3/uL Normal 0-5 [facility] Comment on above: Performed By: #### L 501.9985, L100.0100, L501.5200, L500.2500 ####[facility] [address] [place], [address] Platelet mean volume (Bld) [Entitic vol] 10.4 fL Normal 6.2-12.0 [facility] Comment on above: Performed By: #### L 501.9985, L100.0100, L501.5200, L500.2500 ####[facility] [address] [place], [address] Platelets (Bld) [#/Vol] 365 10*3/uL Normal 150-450 [facility] Comment on above: Performed By: #### L 501.9985, L100.0100, L501.5200, L500.2500 ####[facility] [address] [place], [address] RBC (Bld) [#/Vol] 4.59 10*6/uL Normal 4.2-5.4 [facility] Comment on above: Performed By: #### L 501.9985, L100.0100, L501.5200, L500.2500 ####[facility] [address] [place], [address] RDW SD 55.6 fl High 35.1-43.9 [facility] Comment on above: Performed By: #### L 501.9985, L100.0100, L501.5200, L500.2500 ####[facility] [address] [place], [address] WBC (Bld) [#/Vol] 13.5 10*3/uL High 4.4-11.0 [facility] Comment on above: Performed By: #### L 501.9985, L100.0100, L501.5200, L500.2500 ####[facility] [address] [place], [address] Chest 1 View (Portable)on Chest 1 View (Portable) Normal [facility] Chest without Contraston Chest without Contrast Normal [facility] Gram Stainon 04-17-2025 GS Acceptable Specimen? Yes (<25 Epithelial cells per/lpf) Gram Stain 3+ Gram positive rods 2+ Gram negative rods 2+ Gram positive cocci 1+ Epithelial cells 1+ White Blood Cells Normal [facility] Comment on above: Performed By: #### M 100.2400, M100.2000 ####[facility] [address] [place], [address] Hemoglobin A1con 04-17-2025 HbA1c (Bld) [Mass fraction] 6.9 % High <=5.6 [facility] Comment on above: Result Comment: Norm al < 5.7 % Prediabetic 5.7 - 6.4 % Diabetic >or= 6.5 % Please note range changes. Performed By: #### L 501.9985, L100.0100, L501.5200, L500.2500 ####[facility] [address] [place], [address] Kidney and Bladderon 025 Kidney and Bladder Normal [facility] Magnesiumon 04-17-2025 Magnesium [Mass/Vol] 2.4 mg/dL High 1.5-2.2 [facility] Comment on above: Performed By: #### L 501.9985, L100.0100, L501.5200, L500.2500 ####[facility] [id number] [place], [address] Thoracentesis W USon 025 Thoracentesis W US Normal [facility] Urea Nitrogen, Urineon 04-17 URINE UREA 301 mg/dL Normal NO RANGE EST. [facility] Comment on above: Performed By: #### L 502.0715 ####[facility] [address] [place], [address] 12 Lead EKGon 04-16-2025 12 Lead EKG Normal [facility] Absolute lymphocyte countOrd ered By: Nathan Castanon on 04-16-2025 Lymphocytes Auto (Unsp spec) [#/Vol] 0.77 10*3/uL Low 0.83-4.51 [facility] Absolute neutrophil countOrd ered By: Nathan Castanon on 04-16-2025 Neutrophils (Bld) [#/Vol] 11.4 10*3/uL High 2.0-7.7 [facility] Activated partial thrombopla stin time (aPTT) in platelet poor plasma by coagulation aOrdered By: Nathan Castanon on 04-16-2025 aPTT Coag (PPP) [Time] 36.3 s High 24.1-36.2 [facility] Anion gap in Serum or Plasma Ordered By: Nathan Castanon on 04-16-2025 Anion gap [Moles/Vol] 19 mmol/L High 5-15 [facility] Automated lymphocyte count a s percentage of total leukocytesOrdered By: Nathan Castanon on 04-16-2025 Lymphocytes/100 WBC Auto (Unsp spec) 5.7 % Low 19-41 [facility] BUN/creatinine ratioOrdered By: Nathan Castanon on 04-16-2025 Urea nitrogen/Creatinine [Mass ratio] 28.7 mg/mg High 10-20 [facility] Basic Metabolic Profile (BMP )on 04-16-2025 BUN/CRE 28.7 RATIO High 10-20 [facility] Comment on above: Performed By: #### L 300.3900, L500.2500, L300.4310, L501.4021, L100.0100, L503.7505 ####[facility] [address] [place], [address] Calcium [Mass/Vol] 9.5 mg/dL Normal 7.6-11.0 [facility] Comment on above: Performed By: #### L 300.3900, L500.2500, L300.4310, L501.4021, L100.0100, L503.7505 ####[facility] [address] [place], [address] Chloride [Moles/Vol] 98 mmol/L Normal 98-108 [facility] Comment on above: Performed By: #### L 300.3900, L500.2500, L300.4310, L501.4021, L100.0100, L503.7505 ####[facility] [address] [place], [address] CO2 [Moles/Vol] 19.6 mmol/L Low 21.0-32.0 [facility] Comment on above: Performed By: #### L 300.3900, L500.2500, L300.4310, L501.4021, L100.0100, L503.7505 ####[facility] [address] [place], [address] Creatinine [Mass/Vol] 2.31 mg/dL High 0.70-1.20 [facility] Comment on above: Performed By: #### L 300.3900, L500.2500, L300.4310, L501.4021, L100.0100, L503.7505 ####[facility] [address] [place], [address] ECRCL 18.55 ml/min Low 50-250 [facility] Comment on above: Performed By: #### L 300.3900, L500.2500, L300.4310, L501.4021, L100.0100, L503.7505 ####[facility] [address] [place], [address] GAP 19 High 5-15 [facility] Comment on above: Performed By: #### L 300.3900, L500.2500, L300.4310, L501.4021, L100.0100, L503.7505 ####[facility] [address] [place], [address] GFR/1.73 sq M.predicted among non-blacks MDRD (S/P/Bld) [Vol rate/Area] 20 mL/min/{1.73_m2} Low >60 [facility] Comment on above: Result Comment: mL/m in/1.73m2 CKD-EPI Creatinine Equation (2020) Performed By: #### L 300.3900, L500.2500, L300.4310, L501.4021, L100.0100, L503.7505 ####[facility] [address] [place], [address] Glucose [Mass/Vol] 157 mg/dL High 70-99 [facility] Comment on above: Performed By: #### L 300.3900, L500.2500, L300.4310, L501.4021, L100.0100, L503.7505 ####[facility] [address] [place], [address] Potassium [Moles/Vol] 5.2 mmol/L High 3.3-5.1 [facility] Comment on above: Result Comment: Hemo lysis present, Results??could be affected.?? Performed By: #### L 300.3900, L500.2500, L300.4310, L501.4021, L100.0100, L503.7505 ####[facility] [address] [place], [address] Sodium [Moles/Vol] 137 mmol/L Normal 133-145 [facility] Comment on above: Performed By: #### L 300.3900, L500.2500, L300.4310, L501.4021, L100.0100, L503.7505 ####[facility] [address] [place], [address] Urea nitrogen [Mass/Vol] 66 mg/dL High 4-19 [facility] Comment on above: Performed By: #### L 300.3900, L500.2500, L300.4310, L501.4021, L100.0100, L503.7505 ####[facility] [address] [place], [address] Basophil percentageOrdered B y: Nathan Otoniel-Magaly on 04-16-2025 Basophils/100 WBC (Bld) 0.4 % 0-1 [facility] Bedside Glucoseon 04-16-2025 FINGERSTICK GLU 158 mg/dL High 74-106 [facility] Comment on above: Result Comment: RUSSELL GEMENT OF PATIENT CARE PER NURSING PROTOCOL Performed By: #### L 501.080 ####[facility] [address] [place], [address] FINGERSTICK GLU 160 mg/dL High 74-106 [facility] Comment on above: Result Comment: RUSSELL GEMENT OF PATIENT CARE PER NURSING PROTOCOL Performed By: #### L 501.080 ####[facility] [address] [place], [address] CBC W/Diff, Automatedon 03-22 Absolute Lymph 0.77 X10 3/uL Low 0.83-4.51 [facility] Comment on above: Performed By: #### L 300.3900, L500.2500, L300.4310, L501.4021, L100.0100, L503.7505 ####[facility] [address] [place], [address] Absolute Neut 11.4 X10 3/uL High 2.0-7.7 [facility] Comment on above: Performed By: #### L 300.3900, L500.2500, L300.4310, L501.4021, L100.0100, L503.7505 ####[facility] [address] [place], [address] Basophils/100 WBC (Bld) 0.4 % Normal 0-1 [facility] Comment on above: Performed By: #### L 300.3900, L500.2500, L300.4310, L501.4021, L100.0100, L503.7505 ####[facility] [address] [place], [address] Eosinophils/100 WBC (Bld) 0.1 % Normal 0-5 [facility] Comment on above: Performed By: #### L 300.3900, L500.2500, L300.4310, L501.4021, L100.0100, L503.7505 ####[facility] [address] [place], [address] Erythrocyte distribution width (RBC) [Ratio] 16.8 % High 11.6-14.6 [facility] Comment on above: Performed By: #### L 300.3900, L500.2500, L300.4310, L501.4021, L100.0100, L503.7505 ####[facility] [address] [place], [address] Hematocrit (Bld) [Volume fraction] 42.8 % Normal 37-47 [facility] Comment on above: Performed By: #### L 300.3900, L500.2500, L300.4310, L501.4021, L100.0100, L503.7505 ####[facility] [address] [place], [address] Hemoglobin (Bld) [Mass/Vol] 13.3 g/dL Normal 12.0-15.0 [facility] Comment on above: Performed By: #### L 300.3900, L500.2500, L300.4310, L501.4021, L100.0100, L503.7505 ####[facility] [address] [place], [address] IG% 0.300 Normal 0.0-0.9 [facility] Comment on above: Result Comment: IG% - Immature Granulocytes (promyelocytes, myelocytes andmetamyelocytes) > 1% indicates that a LEFT SHIFT is Present. Performed By: #### L 300.3900, L500.2500, L300.4310, L501.4021, L100.0100, L503.7505 ####[facility] [address] [place], [address] Lymphocytes/100 WBC (Bld) 5.7 % Low 19-41 [facility] Comment on above: Performed By: #### L 300.3900, L500.2500, L300.4310, L501.4021, L100.0100, L503.7505 ####[facility] [address] [place], [address] MCH (RBC) [Entitic mass] 28.1 pg Normal 27.0-32.0 [facility] Comment on above: Performed By: #### L 300.3900, L500.2500, L300.4310, L501.4021, L100.0100, L503.7505 ####[facility] [address] [place], [address] MCHC (RBC) [Mass/Vol] 31.1 g/dL Low 32-36 [facility] Comment on above: Performed By: #### L 300.3900, L500.2500, L300.4310, L501.4021, L100.0100, L503.7505 ####[facility] [address] [place], [address] MCV (RBC) [Entitic vol] 90.5 fL Normal 81-99 [facility] Comment on above: Performed By: #### L 300.3900, L500.2500, L300.4310, L501.4021, L100.0100, L503.7505 ####[facility] [address] [place], [address] Monocytes/100 WBC (Bld) 9.2 % Normal 0-10 [facility] Comment on above: Performed By: #### L 300.3900, L500.2500, L300.4310, L501.4021, L100.0100, L503.7505 ####[facility] [address] [place], [address] Neutrophils/100 WBC (Bld) 84.3 % High 47-70 [facility] Comment on above: Performed By: #### L 300.3900, L500.2500, L300.4310, L501.4021, L100.0100, L503.7505 ####[facility] [address] [place], [address] Nucleated RBC (Bld) [#/Vol] 0 10*3/uL Normal 0-5 [facility] Comment on above: Performed By: #### L 300.3900, L500.2500, L300.4310, L501.4021, L100.0100, L503.7505 ####[facility] [address] [place], [address] Platelet mean volume (Bld) [Entitic vol] 10.2 fL Normal 6.2-12.0 [facility] Comment on above: Performed By: #### L 300.3900, L500.2500, L300.4310, L501.4021, L100.0100, L503.7505 ####[facility] [address] [place], [address] Platelets (Bld) [#/Vol] 322 10*3/uL Normal 150-450 [facility] Comment on above: Performed By: #### L 300.3900, L500.2500, L300.4310, L501.4021, L100.0100, L503.7505 ####[facility] [address] [place], [address] RBC (Bld) [#/Vol] 4.73 10*6/uL Normal 4.2-5.4 [facility] Comment on above: Performed By: #### L 300.3900, L500.2500, L300.4310, L501.4021, L100.0100, L503.7505 ####[facility] [address] [place], [address] RDW SD 56.1 fl High 35.1-43.9 [facility] Comment on above: Performed By: #### L 300.3900, L500.2500, L300.4310, L501.4021, L100.0100, L503.7505 ####[facility] [address] [place], [address] WBC (Bld) [#/Vol] 13.5 10*3/uL High 4.4-11.0 [facility] Comment on above: Performed By: #### L 300.3900, L500.2500, L300.4310, L501.4021, L100.0100, L503.7505 ####[facility] [address] [place], [address] Carbon dioxide, total [Moles /volume] in Central venous bloodOrdered By: Nathan Castanon on 04-16-2025 CO2 [Moles/Vol] 19.6 mmol/L Low 21.0-32.0 [facility] Chest PA and Lateralon 04-16 Chest PA and Lateral Normal [facility] Chloride assayOrdered By: Rasta Castanon on 04-16-2025 Chloride [Moles/Vol] 98 mmol/L 98-108 [facility] Creatinine, Urineon 04-16-20 25 URINE CREAT 96.50 mg/dL Normal 28.00-217. 00 [facility] Comment on above: Performed By: #### L 502.0300 ####[facility] [address] [place], [address] Echo Completeon 04-16-2025 Echo Complete Normal [facility] Emergency Department Summary on 04-16-2025 Emergency Department Summary Normal [facility] Eosinophil percentageOrdered By: Nathan Castanon on 04-16-2025 Eosinophils/100 WBC (Bld) 0.1 % 0-5 [facility] Erythrocyte distribution wid th ratioOrdered By: Nathan Castanon on 04-16-2025 Erythrocyte distribution width (RBC) [Ratio] 16.8 % High 11.6-14.6 [facility] Erythrocyte distribution wid th standard deviationOrdered By: Thornton Marlon Mckenzie on 04-16-2025 Erythrocyte distribution width (RBC) [Ratio] 56.1 fl High 35.1-43.9 [facility] Glomerular filtration rate ( GFR) estimation/1.73 sq m using serum, plasma, or whole bOrdered By: Nathan Castanon on 04-16-2025 GFR/1.73 sq M.predicted among non-blacks MDRD (S/P/Bld) [Vol rate/Area] 20 mL/min/{1.73_m2} Low >60 [facility] Comment on above: mL/min/1.73m2 CKD-EP I Creatinine Equation (2020) H AND P Exam - Hospitaliston 04-16-2025 H&P Exam - Hospitalist Normal [facility] Hematocrit Auto (Bld) [Volum e fraction]Ordered By: Nathan Castanon on 04-16-2025 Hematocrit (Bld) [Volume fraction] 42.8 % 37-47 [facility] Hemoglobin measurementOrdere d By: Nathan Castanon on 04-16-2025 Hemoglobin (Bld) [Mass/Vol] 13.3 g/dL 12.0-15.0 [facility] Immature granulocytes/100 WB C Auto (Bld)Ordered By: Nathan Castanon on 04-16-2025 Immature granulocytes/100 WBC (Bld) 0.300 % 0.0-0.9 [facility] Comment on above: IG% - Immature Granu locytes (promyelocytes, myelocytes and metamyelocytes) > 1% indicates that a LEFT SHIFT is Present. International normalized rat io (INR) calculationOrdered By: Nathan Castanon on 04-16-2025 INR Coag (Bld) [Relative time] 3.4 {INR} [facility] L499.0042on 04-16-2025 Trop T High Sen 33 ng/L High <=14 [facility] Comment on above: Performed By: #### L 499.0042 ####[facility] [address] [place], [address] L501.4021on 04-16-2025 Trop T High Sen 46 ng/L High <=14 [facility] Comment on above: Performed By: #### L 300.3900, L500.2500, L300.4310, L501.4021, L100.0100, L503.7505 ####[facility] [address] [place], [place], [address] L503.7505on 04-16-2025 Natriuretic peptide B (Bld) [Mass/Vol] 4839 pg/mL High <=1800 [facility] Comment on above: Result Comment: Hear t Failure Unlikely: < 300 pg/mLHeart Failure Likely< 50 Years: > 450 pg/mL50-75 Years: > 900 pg/mL>75 Years: > 1800 pg/mL Performed By: #### L 300.3900, L500.2500, L300.4310, L501.4021, L100.0100, L503.7505 ####[facility] [address] [place], [place], [id number] MCV (mean corpuscular volume ) determinationOrdered By: Nathan Castanon on 05-27-2025 MCV (RBC) [Entitic vol] 90.5 fL 81-99 [facility] Mean corpuscular hemoglobin (MCH) determinationOrdered By: Nathan Castanon on 04-16-2025 MCH (RBC) [Entitic mass] 28.1 pg 27.0-32.0 [facility] Mean corpuscular hemoglobin concentration (MCHC) determinationOrdered By: Nathan Castanon on 04-16-2025 MCHC (RBC) [Mass/Vol] 31.1 g/dL Low 32-36 [facility] Mean platelet volume determi nationOrdered By: Nathan Kina on 04-16-2025 Platelet mean volume (Bld) [Entitic vol] 10.2 fL 6.2-12.0 [facility] Monocyte percentageOrdered B y: Nathan Castanno on 04-16-2025 Monocytes/100 WBC (Bld) 9.2 % 0-10 [facility] Natriuretic peptide.B prohor courtney N-Terminal [Mass/volume] in Serum or PlasmaOrdered By: aNthan Castanon on 04-16-2025 Natriuretic peptide.B prohormone N-Terminal [Mass/Vol] 4839 pg/mL High <1800 [facility] Comment on above: Heart Failure Unlike ly: < 300 pg/mLHeart Failure Likely< 50 Years: > 450 pg/mL50-75 Years: > 900 pg/mL>75 Years: > 1800 pg/mL Neutrophil percentageOrdered By: Nathan Castanon on 04-16-2025 Neutrophils/100 WBC (Bld) 84.3 % High 47-70 [facility] Nucleated red blood cell per centageOrdered By: [facility] on 04-16-2025 Nucleated RBC/100 WBC (Bld) [Ratio] 0 % 0-5 [facility] Partial Thromboplast Timeon 04-16-2025 aPTT Coag (Bld) [Time] 36.3 s High 24.1-36.2 [facility] Comment on above: Performed By: #### L 300.3900, L500.2500, L300.4310, L501.4021, L100.0100, L503.7505 ####[facility] [address] [place], [place], [address] Platelet countOrdered By: Rasta Castanon on 04-16-2025 Platelets (Bld) [#/Vol] 322 10*3/uL 150-450 [facility] Potassium measurement (mass/ volume)Ordered By: Nathan Castanon on 04-16-2025 Potassium (Unsp spec) [Mass/Vol] 5.2 mmol/L High 3.3-5.1 [facility] Comment on above: Hemolysis present, R esults could be affected. Prothrombin Time w/INRon INR Coag (PPP) [Relative time] 3.4 {INR} Normal [facility] Comment on above: Performed By: #### L 300.3900, L500.2500, L300.4310, L501.4021, L100.0100, L503.7505 ####[facility] [address] [place], [address] PT Coag (PPP) [Time] 34.7 s High 11.7-14.9 [facility] Comment on above: Performed By: #### L 300.3900, L500.2500, L300.4310, L501.4021, L100.0100, L503.7505 ####[facility] [address] [place], [place], [address] Prothrombin timeOrdered By: Nathan Castanon on 04-16-2025 PT Coag (PPP) [Time] 34.7 s High 11.7-14.9 [facility] RBC Auto (Bld) [#/Vol]Ordere d By: Nathan Castanon on 04-16-2025 RBC (Bld) [#/Vol] 4.73 10*6/uL 4.2-5.4 [facility] Serum creatinine measurement (mass/volume)Ordered By: Nathan Castanon on 04-16-2025 Creatinine [Mass/Vol] 2.31 mg/dL High 0.70-1.20 [facility] Serum glucose measurement (m ass/volume)Ordered By: Nathan Castanon on 04-16-2025 Glucose [Mass/Vol] 157 mg/dL High 70-99 [facility] Serum or plasma calcium allan urement (mass/volume)Ordered By: Nathan Mckenzie on 04-16-2025 Calcium [Mass/Vol] 9.5 mg/dL 7.6-11.0 [facility] Serum or plasma urea nitroge n measurement (mass/volume)Ordered By: Nathan Castanon on 04-16-2025 Urea nitrogen [Mass/Vol] 66 mg/dL High 4-19 [facility] Sodium levelOrdered By: Neal Castanon on 04-16-2025 Sodium [Moles/Vol] 137 mmol/L 133-145 [facility] Troponin T.cardiac [Mass/vol ume] in Serum or Plasma by High sensitivity methodOrdered By: Nathan Castanon on 04-16-2025 Troponin T.cardiac High sensitivity method [Mass/Vol] 46 ng/L High <14 [facility] Urinalysis, Completeon 04-16 EPI,SQUAMOUS 0-5 SEEN Normal 5-10 [facility] Comment on above: Order Comment: SUMAN CTOR TO SPECIFY Performed By: #### L 400.0001 ####[facility] [address] [place], [place], [id number] RBC 0-5 SEEN Normal 0-5 [facility] Comment on above: Order Comment: SUMAN CTOR TO SPECIFY Performed By: #### L 400.0001 ####[facility] [address] [place], [address] WBC 5-10 SEEN Normal 0-5 [facility] Comment on above: Order Comment: SUMAN CTOR TO SPECIFY Performed By: #### L 400.0001 ####[facility] [address] [place], [address] BACTERIA 0 SEEN Normal None Seen [facility] Comment on above: Order Comment: SUMAN CTOR TO SPECIFY Performed By: #### L 400.0001 ####[facility] [address] [place], [place], [address] Mucus Ql (Urine sed) 0 SEEN Normal [facility] Comment on above: Order Comment: COLLE CTOR TO SPECIFY Performed By: #### L 400.0001 ####[facility] [address] [place], [address] White blood cell (WBC) count Ordered By: Nathan Castanon on 04-16-2025 WBC (Bld) [#/Vol] 13.5 10*3/uL High 4.4-11.0 [facility] CNOVon 03-04-2025 CNOV Office Visit (INTMWS ) BLESSING JACKSON I ([id number]) 1940 F Date Time Provider Department 03/04/25 [...] discussed your atrial fibrillation (AFib): - The lab clerk has recommended continuing with your current medications [...] to accommo (more content not included)... 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 Be Careful [...] Go to your health care provider or ship mate to treat these conditions. Miranda De 03/01/2025 [...] tested wit (more content not included)... Normal [facility] CBC panel Auto (Bld)on 02-27 Erythrocyte distribution width (RBC) [Ratio] 16.6 % High 11.5-15.0 [facility] Comment on above: Order Comment: Speci men Type: BLOOD SPECIMENOrdering Facility: [facility] Address: [address] [place] [address] Performed By: #### 5 8410-2 ####[facility] [id number] [place] [address] [place] Hematocrit (Bld) [Volume fraction] 42.5 % Normal 36.0-46.0 [facility] Comment on above: Order Comment: Speci men Type: BLOOD SPECIMENOrdering Facility: [facility] Address: [address] [place] [address] Performed By: #### 5 8410-2 ####[facility] [id number] [place] [address] [place] Hemoglobin (Bld) [Mass/Vol] 12.9 g/dL Normal 11.5-15.5 [facility] Comment on above: Order Comment: Speci men Type: BLOOD SPECIMENOrdering Facility: [facility] Address: [address] [place] [address] Performed By: #### 5 8410-2 ####[facility] [id number] [place] [address] [place] MCH (RBC) [Entitic mass] 27.8 pg Normal 26.0-34.0 [facility] Comment on above: Order Comment: Speci men Type: BLOOD SPECIMENOrdering Facility: [facility] Address: [address] [place] [address] Performed By: #### 5 8410-2 ####[facility] [id number] [place] [address] [place] MCHC (RBC) [Mass/Vol] 30.4 g/dL Low 30.5-36.0 [facility] Comment on above: Order Comment: Speci men Type: BLOOD SPECIMENOrdering Facility: [facility] Address: [address] [place] [address] Performed By: #### 5 8410-2 ####[facility] [id number] [place] [address] [place] MCV (RBC) [Entitic vol] 91.6 fL Normal 80.0-100.0 [facility] Comment on above: Order Comment: Speci men Type: BLOOD SPECIMENOrdering Facility: [facility] Address: [address] [place] [address] Performed By: #### 5 8410-2 ####[facility] [id number] [place] [address] [place] Nucleated RBC (Bld) [#/Vol] 10*3/uL Normal <0.01 [facility] Comment on above: Order Comment: Speci men Type: BLOOD SPECIMENOrdering Facility: [facility] Address: [address] [place] [address] Performed By: #### 5 8410-2 ####[facility] [id number] [place] [address] [place] Platelet mean volume (Bld) [Entitic vol] 11.4 fL Normal 9.0-12.7 [facility] Comment on above: Order Comment: Speci men Type: BLOOD SPECIMENOrdering Facility: [facility] Address: [address] [place] [address] Performed By: #### 5 8410-2 ####[facility] [id number] [place] [address] [place] Platelets (Bld) [#/Vol] 269 10*3/uL Normal 150-400 [facility] Comment on above: Order Comment: Speci men Type: BLOOD SPECIMENOrdering Facility: [facility] Address: [address] [place] [address] Performed By: #### 5 8410-2 ####[facility] [id number] [place] [address] [place] RBC (Bld) [#/Vol] 4.64 10*6/uL Normal 3.90-5.20 [facility] Comment on above: Order Comment: Speci men Type: BLOOD SPECIMENOrdering Facility: [facility] Address: [address] [place] [address] Performed By: #### 5 8410-2 ####[facility] [id number] [place] [address] [place] WBC (Bld) [#/Vol] 7.64 10*3/uL Normal 3.70-11.00 [facility] Comment on above: Order Comment: Speci men Type: BLOOD SPECIMENOrdering Facility: [facility] [facility] Address: [address] [place] [address] Performed By: #### 5 8410-2 ####[facility] LABCLIA [id number] [place] [address] [place] Comprehensive metabolic 2000 panelon 02-27-2025 Albumin [Mass/Vol] 4.0 g/dL Normal 3.9-4.9 [facility] Comment on above: Order Comment: Speci men Type: BLOOD SPECIMENOrdering Facility: [facility] Address: [address] [place] [address] Performed By: #### 2 4323-8, 80769-8, 99817-3, 3016-3 ####[facility] LABCLIA [id number] [place] [address] [place] ALP [Catalytic activity/Vol] 177 U/L High 34-123 [facility] Comment on above: Order Comment: Speci men Type: BLOOD SPECIMENOrdering Facility: [facility] Address: [address] [place] [address] Performed By: #### 2 4323-8, 04922-7, 76840-6, 3016-3 ####[facility] LABCLIA [id number] [place] [address] [place] ALT [Catalytic activity/Vol] 25 U/L Normal 7-38 [facility] Comment on above: Order Comment: Speci men Type: BLOOD SPECIMENOrdering Facility: [facility] Address: [address] [place] [address] Performed By: #### 2 4323-8, 41713-9, 97769-2, 6-3 ####[facility] LABIA [id number] [place] [address] [place] Anion gap [Moles/Vol] 11 mmol/L Normal 8-15 [facility] Comment on above: Order Comment: Speci men Type: BLOOD SPECIMENOrdering Facility: [facility] Address: [address] [place] [address] Performed By: #### 2 4323-8, 85463-5, 29237-7, 6-3 ####[facility] LABIA [id number] [place] [address] [place] AST [Catalytic activity/Vol] 28 U/L Normal 13-35 [facility] Comment on above: Order Comment: Speci men Type: BLOOD SPECIMENOrdering Facility: [facility] Address: [address] [place] [address] Performed By: #### 2 4323-8, 19013-7, 57978-1, 3016-3 ####[facility] LABIA [id number] [address] [address] [place] Bilirubin [Mass/Vol] 0.4 mg/dL Normal 0.2-1.3 [facility] Comment on above: Order Comment: Speci men Type: BLOOD SPECIMENOrdering Facility: [facility] Address: [address] [place] [address] Performed By: #### 2 4323-8, 81371-0, 50916-8, 3016-3 ####[facility]CLIA [id number] [facility] [address] [address] [place] Calcium [Mass/Vol] 9.9 mg/dL Normal 8.5-10.2 [facility] Comment on above: Order Comment: Speci men Type: BLOOD SPECIMENOrdering Facility: [facility] Address: [address] [place] [address] Performed By: #### 2 4323-8, 57863-7, 41686-7, 6-3 ####[facility] LABCLIA [id number] [facility] [place] [id number] [place] Chloride [Moles/Vol] 100 mmol/L Normal 98-107 [facility] Comment on above: Order Comment: Speci men Type: BLOOD SPECIMENOrdering Facility: [facility] Address: [address] [place] [address] Performed By: #### 2 4323-8, 48635-9, 01763-7, 6-3 ####[facility] LABCLIA [id number] [facility] [address] [address] [place] CO2 [Moles/Vol] 30 mmol/L Normal 22-30 [facility] Comment on above: Order Comment: Speci men Type: BLOOD SPECIMENOrdering Facility: [facility] Address: [address] [place] [address] Performed By: #### 2 4323-8, 18646-5, 07882-6, 3016-3 ####[facility] LABCLIA [id number] [facility] [address] [address] [place] Creatinine [Mass/Vol] 1.11 mg/dL High 0.58-0.96 [facility] Comment on above: Order Comment: My flannery Type: BLOOD SPECIMENOrdering Facility: [facility] Address: [address] [place] [id number] Performed By: #### 2 4323-8, 35704-8, 37806-3, 3016-3 ####[facility] LABCLIA [id number] [place] [address] [place] Creatinine and Glomerular filtration rate.predicted panel (S/P/Bld) 49 mL/min/1.73m??? Low >=60 [facility] Comment on above: Order Comment: My flannery Type: BLOOD SPECIMENOrdering Facility: [facility] Address: [address] [place] [address] Result Comment: Aura mated Glomerular Filtration Rate [...] actual GFR. Performed By: #### 2 4323-8, 09868-3, 23347-7, 3016-3 ####[facility] LABCLIA [id number] [address] [address] [place] Glucose [Mass/Vol] 128 mg/dL High 74-99 [facility] Comment on above: Order Comment: My flannery Type: BLOOD SPECIMENOrdering Facility: [facility] Address: [address] [place] [address] Result Comment: The [place] Diabetes Association (ADA) provides guidance for cutoff [...] Standards of Medical Care in Diabetes 2016, [place] Diabetes Association. Diabetes Care. 2016.39(Suppl 1). Performed By: #### 2 4323-8, 74151-5, 69531-4, 3016-3 ####[facility] LABCLIA [id number] [facility] [address] [address] [place] Potassium [Moles/Vol] 4.3 mmol/L Normal 3.7-5.1 [facility] Comment on above: Order Comment: Speci men Type: BLOOD SPECIMENOrdering Facility: [facility] Address: [address] [place] [address] Performed By: #### 2 4323-8, 98255-3, 79665-8, 6-3 ####[facility] LABCLIA [id number] [address] [address] [place] Protein [Mass/Vol] 7.8 g/dL Normal 6.3-8.0 [facility] Comment on above: Order Comment: Speci men Type: BLOOD SPECIMENOrdering Facility: [facility] Address: [address] [place] [address] Performed By: #### 2 4323-8, 21737-6, 31606-7, 6-3 ####[facility] LABCLIA [id number] [address] [address] [place] Sodium [Moles/Vol] 141 mmol/L Normal 136-144 [facility] Comment on above: Order Comment: Speci men Type: BLOOD SPECIMENOrdering Facility: [facility] Address: [address] [place] [address] Performed By: #### 2 4323-8, 74511-4, 42898-0, 3016-3 ####[facility] LABCLIA [id number] [address] [address] [place] Urea nitrogen [Mass/Vol] 35 mg/dL High 7-21 [facility] Comment on above: Order Comment: Faithsusan flannery Type: BLOOD SPECIMENOrdering Facility: [facility] Address: [address] [place] [address] Performed By: #### 2 4323-8, 09368-4, 55183-6, 3016-3 ####[facility] LABIA [id number] [address] [place] HbA1c (Bld)on 02-27-2025 Average glucose Estimated from glycated hemoglobin (Bld) [Mass/Vol] 137 mg/dL Normal [facility] Comment on above: Order Comment: Faithsusan [facility] Type: BLOOD SPECIMENOrdering Facility: [facility] Address: [address] [place] [address] Result Comment: eAG: (Estimated average glucose) is a calculated value from HgbA1c and is sales representative trainee of the average blood glucose level in the last 2-3 month period. Performed By: #### 5 5454-3 ####[facility] LABIA [id number] [place] [address] [place] [facility] HbA1c (Bld) [Mass fraction] 6.4 % High 4.3-5.6 [facility] Comment on above: Order Comment: Faithsusan flannery Type: BLOOD SPECIMENOrdering Facility: [facility] Address: [address] [place] [address] Result Comment: [place] Diabetes Association guidelines indicate that patients with HgbA1c in the range 5.7-6.4% are at increased risk for development of diabetes, and intervention by lifestyle modification may be beneficial. HgbA1c greater or equal to 6.5% is considered diagnostic of diabetes. Performed By: #### 5 5454-3 ####[facility] LABIA [id number] [place] [address] [place] Lipid 1996 panelon 5 Cholesterol [Mass/Vol] 129 mg/dL Normal <200 [facility] Comment on above: Order Comment: Faithsusan flannery Type: BLOOD SPECIMENOrdering Facility: [facility] Address: [address] [place], [place] [address] Result Comment: <200 mg/dL, Desirable 200-239 mg/dL, Borderline high >239 mg/dL, High Performed By: #### 2 4323-8, 26224-7, 70616-0, 3016-3 ####[facility] LABCLIA [id number] [facility] [address], [place] [address] [place] Cholesterol in HDL [Mass/Vol] 69 mg/dL Normal >39 [facility] Comment on above: Order Comment: Faithi men Type: BLOOD SPECIMENOrdering Facility: [facility] Address: [address] [place] [address] Result Comment: 40-5 9 mg/dL, Acceptable >59 mg/dL, High: Negative risk factor for coronary heart disease <40 mg/dL, Low: Positive risk factor for coronary heart disease Performed By: #### 2 4323-8, 52497-4, 01522-1, 3016-3 ####[facility] LABCLIA [id number] [facility] [place] [address] [place] Cholesterol in LDL [Mass/Vol] 43 mg/dL Normal <100 [facility] Comment on above: Order Comment: My men Type: BLOOD SPECIMENOrdering Facility: [facility] Address: [address] [place] [address] Result Comment: <100 mg/dL, Optimal 100-129 mg/dL, Near optimal/above optimal 130-159 mg/dL, Borderline high 160-189 mg/dL, High >189 mg/dL, Very high Secondary prevention optimal LDL Cholesterol levels are recommended to be < 70 mg/dL Performed By: #### 2 4323-8, 08817-6, 34400-6, 3016-3 ####[facility] LABCLIA [id number] [facility] [address] [place], [place] [address] [place] Cholesterol in LDL/Cholesterol in HDL [Mass ratio] 0.62 {ratio} Normal <2.54 [facility] Comment on above: Order Comment: Faithi men Type: BLOOD SPECIMENOrdering Facility: [facility] Address: [address] [place] [address] Result Comment: Kike maciel: 1. National Cholesterol Education Program ATP III Guideline At-A-Glance Quick Desk Reference: National Heart, Lung, and Blood [place]. National Institutes of Health. 2001: NIH Publication No. 01-3305. 2. An International Atherosclerosis Society position paper: global recommendations for the management of dyslipidemia: executive summary, Atherosclerosis. 2014: 232(2):410-413. Performed By: #### 2 4323-8, 37482-2, 87436-1, 3016-3 ####[facility] LABCLIA [id number] [place] [address] [place] Cholesterol in VLDL [Mass/Vol] 17 mg/dL Normal <30 [facility] Comment on above: Order Comment: Speci men Type: BLOOD SPECIMENOrdering Facility: [facility] Address: [address] [place] [address] Performed By: #### 2 4323-8, 21676-8, 12176-4, 6-3 ####[facility] LABIA [id number] [place] [address] [place] Cholesterol non HDL [Mass/Vol] 60 mg/dL Normal <130 [facility] Comment on above: Order Comment: Speci men Type: BLOOD SPECIMENOrdering Facility: [facility] Address: [address] [place] [address] Result Comment: <130 mg/dL, Optimal 130-159 mg/dL, Near optimal/above optimal 160-189 mg/dL, Borderline high 190-219 mg/dL, High >219 mg/dL, Very high Secondary prevention optimal non HDL Cholesterol levels are recommended to be <100 mg/dL Performed By: #### 2 4323-8, 24479-2, 38046-7, 3016-3 ####[facility] LABCLIA [id number] [address] [place] [address] [place] Cholesterol.total/Chol esterol in HDL [Mass ratio] 1.87 {ratio} Normal <5.10 [facility] Comment on above: Order Comment: Speci men Type: BLOOD SPECIMENOrdering Facility: [facility] Address: [address] [place] [address] Performed By: #### 2 4323-8, 49149-9, 26831-7, 3016-3 ####[facility] LABCLIA [id number] [address] [place] [address] [place] FASTING TIME 12 hrs Normal [facility] Comment on above: Order Comment: Speci men Type: BLOOD SPECIMENOrdering Facility: [facility] Address: [address] [place] [address] Performed By: #### 2 4323-8, 30063-4, 51900-3, 6-3 ####[facility] LABCLIA [id number] [address] [place] [address] [place] Triglyceride [Mass/Vol] 83 mg/dL Normal <150 [facility] Comment on above: Order Comment: Speci men Type: BLOOD SPECIMENOrdering Facility: [facility] Address: [address] [place] [address] Result Comment: <150 mg/dL, Normal 150-199 mg/dL, Borderline high 200-499 mg/dL, High >499 mg/dL, Very high Performed By: #### 2 4323-8, 74555-0, 93688-1, 3016-3 ####[facility] LABCLIA [id number] [address] [place] [address] [place] Magnesium SerPl-mCncon 02-27 Magnesium [Mass/Vol] 2.0 mg/dL Normal 1.7-2.3 [facility] Comment on above: Order Comment: Speci men Type: BLOOD SPECIMENOrdering Facility: [facility] Address: [address] [place] [address] Performed By: #### 1 9123-9 ####[facility] LABCLIA [id number] [address] [place] [address] [place] NT-proBNP SerPl-mCncon 02-27 Natriuretic peptide.B prohormone N-Terminal [Mass/Vol] 2576 pg/mL High <450 [facility] Comment on above: Order Comment: Speci men Type: BLOOD SPECIMENOrdering Facility: [facility] Address: [address] [place] [address] Performed By: #### 2 4323-8, 22771-5, 28947-3, 3016-3 ####[facility] LABCLIA [id number] [place] [address] [place] TSH SerPl-aCncon 02-27-2025 TSH Qn 4.470 m[IU]/L High 0.270-4.20 0 [facility] Comment on above: Order Comment: Speci men Type: BLOOD SPECIMENOrdering Facility: [facility] Address: [address] [place] [address] Performed By: #### 2 4323-8, 16313-6, 30653-5, 3016-3 ####[facility] LABCLIA [id number] [place] [address] [place] Chest PA and Lateralon 01-31 Chest PA and Lateral Normal [facility] 12 Lead EKG performed by [facility] on 01-23-2025 12 Lead EKG performed by [facility] Anion gap in Serum or Plasma Ordered By: Magdi Thomas on 01-23-2025 Anion gap [Moles/Vol] 11 mmol/L - [facility] BUN/creatinine ratioOrdered By: Magdi Thomas on 01-23-2025 Urea nitrogen/Creatinine [Mass ratio] 25.4 mg/mg High - [facility] Basic Metabolic Profile (BMP )on 01-23-2025 BUN/CRE 25.4 RATIO High 09-09 [facility] Comment on above: Performed By: #### L 300.3900, L500.2500 ####[facility] [address] [place], [address] Calcium [Mass/Vol] 10.2 mg/dL Normal 7.6-11.0 [facility] Comment on above: Performed By: #### L 300.3900, L500.2500 ####[facility] [address] [place], [address] Chloride [Moles/Vol] 101 mmol/L Normal 98-108 [facility] Comment on above: Performed By: #### L 300.3900, L500.2500 ####[facility] [address] [place], [address] CO2 [Moles/Vol] 29.7 mmol/L Normal 21.0-32.0 [facility] Comment on above: Performed By: #### L 300.3900, L500.2500 ####[facility] [address] [place], [address] Creatinine [Mass/Vol] 1.27 mg/dL High 0.70-1.20 [facility] Comment on above: Performed By: #### L 300.3900, L500.2500 ####[facility] [address] [place], [address] GAP 11 Normal 5-15 [facility] Comment on above: Performed By: #### L 300.3900, L500.2500 ####[facility] [address] [place], [address] GFR/1.73 sq M.predicted among non-blacks MDRD (S/P/Bld) [Vol rate/Area] 41 mL/min/{1.73_m2} Low >60 [facility] Comment on above: Result Comment: mL/m in/1.73m2 CKD-EPI Creatinine Equation (2020) Performed By: #### L 300.3900, L500.2500 ####[facility] [address] [place], [address] Glucose [Mass/Vol] 138 mg/dL High 70-99 [facility] Comment on above: Performed By: #### L 300.3900, L500.2500 ####[facility] [address] [place], [address] Potassium [Moles/Vol] 4.4 mmol/L Normal 3.3-5.1 [facility] Comment on above: Performed By: #### L 300.3900, L500.2500 ####[facility] [address] [place], [address] Sodium [Moles/Vol] 142 mmol/L Normal 133-145 [facility] Comment on above: Performed By: #### L 300.3900, L500.2500 ####[facility] [address] [place], [address] Urea nitrogen [Mass/Vol] 32 mg/dL High 4-19 [facility] Comment on above: Performed By: #### L 300.3900, L500.2500 ####[facility] [address] [place], [address] Carbon dioxide, total [Moles /volume] in Central venous bloodOrdered By: Magdi Thomas on 01-23-2025 CO2 [Moles/Vol] 29.7 mmol/L 21.0-32.0 [facility] Cardiology Visit Reporton Cardiology Visit Report Normal [facility] Chloride assayOrdered By: Ernestine Thomas on 01-23-2025 Chloride [Moles/Vol] 101 mmol/L 98-108 [facility] GFR/1.73 sq M.predicted tan g non-blacks MDRD (S/P/Bld) [Vol rate/Area]Ordered By: Magdi Thomas on 01-23-2025 Estimated GFR (MDRD) Non-Af Amer 41 Low >60 [facility] Comment on above: mL/min/1.73m2 CKD-EP I Creatinine Equation (2020) Glomerular filtration rate ( GFR) estimation/1.73 sq m using serum, plasma, or whole bOrdered By: Magdi Thomas on 01-23-2025 GFR/1.73 sq M.predicted among non-blacks MDRD (S/P/Bld) [Vol rate/Area] 41 mL/min/{1.73_m2} Low >60 [facility] Comment on above: mL/min/1.73m2 CKD-EP I Creatinine Equation (2020) International normalized rat io (INR) calculationOrdered By: Magdi Thomas on 01-23-2025 INR Coag (Bld) [Relative time] 1.7 {INR} [facility] Potassium (Unsp spec) [Mass/ Vol]Ordered By: Magdi Thomas on 01-23-2025 Potassium [Moles/Vol] 4.4 mmol/L 3.3-5.1 [facility] Potassium measurement (mass/ volume)Ordered By: Magdi Thomas on 01-23-2025 Potassium (Unsp spec) [Mass/Vol] 4.4 mmol/L 3.3-5.1 [facility] Prothrombin Time w/INRon INR Coag (PPP) [Relative time] 1.7 {INR} Normal [facility] Comment on above: Performed By: #### L 300.3900, L500.2500 ####[facility] [address] [place], [address] PT Coag (PPP) [Time] 20.7 s High 11.7-14.9 [facility] Comment on above: Performed By: #### L 300.3900, L500.2500 ####[facility] [address] [facility], [address] Prothrombin timeOrdered By: Magdi Thomas on 01-23-2025 PT Coag (PPP) [Time] 20.7 s High 11.7-14.9 [facility] Serum creatinine measurement (mass/volume)Ordered By: Magdi Thomas on 01-23-2025 Creatinine [Mass/Vol] 1.27 mg/dL High 0.70-1.20 [facility] Serum glucose measurement (m ass/volume)Ordered By: Magdi Thomas on 01-23-2025 Glucose [Mass/Vol] 138 mg/dL High 70-99 [facility] Serum or plasma calcium allan urement (mass/volume)Ordered By: Magdi Thomas on 01-23-2025 Calcium [Mass/Vol] 10.2 mg/dL 7.6-11.0 [facility] Serum or plasma urea nitroge n measurement (mass/volume)Ordered By: Magdi Thomas on 01-23-2025 Urea nitrogen [Mass/Vol] 32 mg/dL High 4-19 [facility] Sodium levelOrdered By: Eve Thomas on 01-23-2025 Sodium [Moles/Vol] 142 mmol/L 133-145 [facility] CNOVon 01-22-2025 CNOV Office Visit (INTMWS ) BLESSING JACKSON I ([id number]) 1940 F Date Time Provider Department 01/22/25 2:40 PM JEANA GUERRA INTMWS During your visit today, we recorded the following information about you: Pulse Blood pressure Weight Height 80/minute 106/68 88.6 kg 1.549 m Jeana Guerra MD 01/22/2025 5:42 PM Signed Reason for Visit Patient presents with: Hospital F/U: [facility] f/u, anuradha Funk I Manuel is a 82 year old female who [...] tried Gordy Kolluri for the atypical stropping for venous insufficiency. [...] 40 mg. She is follow-up tomorrow with [facility] cardiology group. She has lost almost [...] think she is needs to go to residential at this point. May be some help at home would be great. No problem-specific Assessment AND Plan notes found for this encounter. PAST MEDICAL HISTORY Diagnosis Date Cardiomegaly Cellulitis Essential hypertension, benign 1979 (more content not included)... Normal [facility] Culture, Anaerobic Any Sourc deangelo 01-15-2025 CUAN No growth in 5 days. Normal [facility] Comment on above: Performed By: #### M 100.4001, L350.1000, M100.2000, M100.2900, L200.0200 ####[facility] [address] [place], [address] Body Fluid Culton 01-13-2025 BFC No growth aerobically. Normal [facility] Comment on above: Performed By: #### M 100.4001, L350.1000, M100.2000, M100.2900, L200.0200 ####[facility] [address] [place], [address] Basic Metabolic Profile (BMP )on 01-12-2025 BUN Normal 7-18 [facility] Comment on above: Result Comment: Canc elled via OM: Order cancelled - Patient discharged Performed By: #### L 500.2500, L100.0100 ####[facility] [address] [place], [address] BUN/CRE Normal 10-20 [facility] Comment on above: Result Comment: Canc elled via OM: Order cancelled - Patient discharged Performed By: #### L 500.2500, L100.0100 ####[facility] [address] [place], [address] CA,Total Normal 8.5-10.1 [facility] Comment on above: Result Comment: Canc elled via OM: Order cancelled - Patient discharged Performed By: #### L 500.2500, L100.0100 ####[facility] [address] [place], [address] CL Normal 98-107 [facility] Comment on above: Result Comment: Canc elled via OM: Order cancelled - Patient discharged Performed By: #### L 500.2500, L100.0100 ####[facility] [address] [place], [address] CO2 Normal 21.0-32.0 [facility] Comment on above: Result Comment: Canc elled via OM: Order cancelled - Patient discharged Performed By: #### L 500.2500, L100.0100 ####[facility] [address] [place], [address] CREAT,SERUM Normal 0.55-1.02 [facility] Comment on above: Result Comment: Canc elled via OM: Order cancelled - Patient discharged Performed By: #### L 500.2500, L100.0100 ####[facility] [address] [place], [address] EST GFR Normal >60 [facility] Comment on above: Result Comment: Canc elled via OM: Order cancelled - Patient discharged Performed By: #### L 500.2500, L100.0100 ####[facility] [address] [place], [address] EST GFR - AA Normal >60 [facility] Comment on above: Result Comment: Canc elled via OM: Order cancelled - Patient discharged Performed By: #### L 500.2500, L100.0100 ####[facility] [address] [place], [address] GAP Normal 5-15 [facility] Comment on above: Result Comment: Canc elled via OM: Order cancelled - Patient discharged Performed By: #### L 500.2500, L100.0100 ####[facility] [address] [place], [address] GLU Normal 74-106 [facility] Comment on above: Result Comment: Canc elled via OM: Order cancelled - Patient discharged Performed By: #### L 500.2500, L100.0100 ####[facility] [address] [place], [address] Potassium Normal 3.5-5.1 [facility] Comment on above: Result Comment: Canc elled via OM: Order cancelled - Patient discharged Performed By: #### L 500.2500, L100.0100 ####[facility] [address] [place], [address] Basic Metabolic Profile (BMP) Normal 136-145 [facility] Comment on above: Result Comment: Canc elled via OM: Order cancelled - Patient discharged Performed By: #### L 500.2500, L100.0100 ####[facility] [address] [place], [address] CBC W/Diff, Automatedon 02- Absolute Neut Normal 2.0-7.7 [facility] Comment on above: Result Comment: Canc elled via OM: Order cancelled - Patient discharged Performed By: #### L 500.2500, L100.0100 ####[facility] [address] [place], [address] HCT Normal 37-47 [facility] Comment on above: Result Comment: Canc elled via OM: Order cancelled - Patient discharged Performed By: #### L 500.2500, L100.0100 ####[facility] [address] [place], [address] HGB Normal 12.0-15.0 [facility] Comment on above: Result Comment: Canc elled via OM: Order cancelled - Patient discharged Performed By: #### L 500.2500, L100.0100 ####[facility] [address] [place], [address] MCH Normal 27.0-32.0 [facility] Comment on above: Result Comment: Canc elled via OM: Order cancelled - Patient discharged Performed By: #### L 500.2500, L100.0100 ####[facility] [address] [place], [address] MCHC Normal 32-36 [facility] Comment on above: Result Comment: Canc elled via OM: Order cancelled - Patient discharged Performed By: #### L 500.2500, L100.0100 ####[facility] [address] [place], [address] MCV Normal 81-99 [facility] Comment on above: Result Comment: Canc elled via OM: Order cancelled - Patient discharged Performed By: #### L 500.2500, L100.0100 ####[facility] [address] [place], [address] NEUT% Normal 47-70 [facility] Comment on above: Result Comment: Canc elled via OM: Order cancelled - Patient discharged Performed By: #### L 500.2500, L100.0100 ####[facility] [address] [place], [address] PLT Normal 150-450 [facility] Comment on above: Result Comment: Canc elled via OM: Order cancelled - Patient discharged Performed By: #### L 500.2500, L100.0100 ####[facility] [address] [place], [address] RBC Normal 4.2-5.4 [facility] Comment on above: Result Comment: Canc elled via OM: Order cancelled - Patient discharged Performed By: #### L 500.2500, L100.0100 ####[facility] [address] [place], [address] RDW CV Normal 11.6-14.6 [facility] Comment on above: Result Comment: Canc elled via OM: Order cancelled - Patient discharged Performed By: #### L 500.2500, L100.0100 ####[facility] [address] [place], [address] RDW SD Normal 35.1-43.9 [facility] Comment on above: Result Comment: Canc elled via OM: Order cancelled - Patient discharged Performed By: #### L 500.2500, L100.0100 ####[facility] [address] [place], [address] WBC Normal 4.4-11.0 [facility] Comment on above: Result Comment: Canc elled via OM: Order cancelled - Patient discharged Performed By: #### L 500.2500, L100.0100 ####[facility] [address] [place], [address] Absolute lymphocyte countOrd ered By: Supa Brumfield on 01-11-2025 Lymphocytes Auto (Unsp spec) [#/Vol] 1.17 10*3/uL 0.83-4.51 [facility] Absolute neutrophil countOrd ered By: Supa Octaviano on 01-11-2025 Neutrophils (Bld) [#/Vol] 4.1 10*3/uL 2.0-7.7 [facility] Automated lymphocyte count a s percentage of total leukocytesOrdered By: Supawilber Brumfield on 01-11-2025 Lymphocytes/100 WBC Auto (Unsp spec) 18.7 % Low 19-41 [facility] Basic Metabolic Profile (BMP )on 01-11-2025 BUN/CRE 35.0 RATIO High 10-20 [facility] Comment on above: Performed By: #### L 100.0100, L500.2500 ####[facility] [address] [place], [address] CA,Total 9.1 mg/dL Normal 8.5-10.1 [facility] Comment on above: Performed By: #### L 100.0100, L500.2500 ####[facility] [address] [place], [address] Chloride [Moles/Vol] 104 mmol/L Normal 98-107 [facility] Comment on above: Performed By: #### L 100.0100, L500.2500 ####[facility] [address] [place], [address] CO2 [Moles/Vol] 29.0 mmol/L Normal 21.0-32.0 [facility] Comment on above: Performed By: #### L 100.0100, L500.2500 ####[facility] [address] [place], [address] Creatinine [Mass/Vol] 1.17 mg/dL High 0.55-1.02 [facility] Comment on above: Result Comment: The validity of the calculated GFR GFRAA in patients over70 years has not been determined. Clinical correlation isessential. Performed By: #### L 100.0100, L500.2500 ####[facility] [address] [place], [address] ECRCL 36.83 ml/min Normal [facility] Comment on above: Performed By: #### L 100.0100, L500.2500 ####[facility] [address] [place], [address] EST GFR - AA 57 mL/min Low >60 [facility] Comment on above: Result Comment: Afri can Georgian GFR Calc Performed By: #### L 100.0100, L500.2500 ####[facility] [address] [place], [address] GAP 7 Normal 5-15 [facility] Comment on above: Performed By: #### L 100.0100, L500.2500 ####[facility] [address] [place], [address] GFR/1.73 sq M.predicted among non-blacks MDRD (S/P/Bld) [Vol rate/Area] 47 mL/min/{1.73_m2} Low >60 [facility] Comment on above: Result Comment: Non- GFR Calc Performed By: #### L 100.0100, L500.2500 ####[facility] [address] [place], [address] Glucose [Mass/Vol] 122 mg/dL High 74-106 [facility] Comment on above: Result Comment: Fast ing Glucose result from 100 to 125 mg/dLsuggests IMPAIRED HOMEOSTASIS per A.D.A. criteria. Performed By: #### L 100.0100, L500.2500 ####[facility] [address] [place], [address] Potassium [Moles/Vol] 3.6 mmol/L Normal 3.5-5.1 [facility] Comment on above: Performed By: #### L 100.0100, L500.2500 ####[facility] [address] [place], [address] Sodium [Moles/Vol] 140 mmol/L Normal 136-145 [facility] Comment on above: Performed By: #### L 100.0100, L500.2500 ####[facility] [address] [place], [address] Urea nitrogen [Mass/Vol] 41 mg/dL High 7-18 [facility] Comment on above: Performed By: #### L 100.0100, L500.2500 ####[facility] [address] [place], [address] Basophil percentageOrdered B y: Supa Brumfield on 01-11-2025 Basophils/100 WBC (Bld) 1.1 % High 0-1 [facility] Blood urea nitrogen (BUN)/cr eatinine ratioOrdered By: Supa Brumfield on 01-11-2025 Urea nitrogen/Creatinine [Mass ratio] 35.0 mg/mg High 10-20 [facility] CBC W/Diff, Automatedon 12-23 Absolute Lymph 1.17 X10 3/uL Normal 0.83-4.51 [facility] Comment on above: Performed By: #### L 100.0100, L500.2500 ####[facility] [address] [place], [address] Absolute Neut 4.1 X10 3/uL Normal 2.0-7.7 [facility] Comment on above: Performed By: #### L 100.0100, L500.2500 ####[facility] [address] [place], [address] Basophils/100 WBC (Bld) 1.1 % High 0-1 [facility] Comment on above: Performed By: #### L 100.0100, L500.2500 ####[facility] [address] [place], [address] Eosinophils/100 WBC (Bld) 5.7 % High 0-5 [facility] Comment on above: Performed By: #### L 100.0100, L500.2500 ####[facility] [address] [place], [address] Erythrocyte distribution width (RBC) [Ratio] 15.9 % High 11.6-14.6 [facility] Comment on above: Performed By: #### L 100.0100, L500.2500 ####[facility] [address] [place], [address] Hematocrit (Bld) [Volume fraction] 37.4 % Normal 37-47 [facility] Comment on above: Performed By: #### L 100.0100, L500.2500 ####[facility] [address] [place], [address] Hemoglobin (Bld) [Mass/Vol] 11.6 g/dL Low 12.0-15.0 [facility] Comment on above: Performed By: #### L 100.0100, L500.2500 ####[facility] [address] [place], [address] IG% 0.300 Normal 0.0-0.9 [facility] Comment on above: Result Comment: IG% - Immature Granulocytes (promyelocytes, myelocytes andmetamyelocytes) > 1% indicates that a LEFT SHIFT is Present. Performed By: #### L 100.0100, L500.2500 ####[facility] [address] [place], [address] Lymphocytes/100 WBC (Bld) 18.7 % Low 19-41 [facility] Comment on above: Performed By: #### L 100.0100, L500.2500 ####[facility] [address] [place], [address] MCH (RBC) [Entitic mass] 28.2 pg Normal 27.0-32.0 [facility] Comment on above: Performed By: #### L 100.0100, L500.2500 ####[facility] [address] [place], [address] MCHC (RBC) [Mass/Vol] 31.0 g/dL Low 32-36 [facility] Comment on above: Performed By: #### L 100.0100, L500.2500 ####[facility] [address] [place], [address] MCV (RBC) [Entitic vol] 91.0 fL Normal 81-99 [facility] Comment on above: Performed By: #### L 100.0100, L500.2500 ####[facility] [address] [place], [address] Monocytes/100 WBC (Bld) 9.1 % Normal 0-10 [facility] Comment on above: Performed By: #### L 100.0100, L500.2500 ####[facility] [address] [place], [address] Neutrophils/100 WBC (Bld) 65.1 % Normal 47-70 [facility] Comment on above: Performed By: #### L 100.0100, L500.2500 ####[facility] [address] [place], [address] Nucleated RBC (Bld) [#/Vol] 0 10*3/uL Normal 0-5 [facility] Comment on above: Performed By: #### L 100.0100, L500.2500 ####[facility] [address] [place], [address] Platelet mean volume (Bld) [Entitic vol] 10.6 fL Normal 6.2-12.0 [facility] Comment on above: Performed By: #### L 100.0100, L500.2500 ####[facility] [address] [place], [address] Platelets (Bld) [#/Vol] 251 10*3/uL Normal 150-450 [facility] Comment on above: Performed By: #### L 100.0100, L500.2500 ####[facility] [address] [place], [address] RBC (Bld) [#/Vol] 4.11 10*6/uL Low 4.2-5.4 [facility] Comment on above: Performed By: #### L 100.0100, L500.2500 ####[facility] [address] [place], [address] RDW SD 52.4 fl High 35.1-43.9 [facility] Comment on above: Performed By: #### L 100.0100, L500.2500 ####[facility] [address] [place], [address] WBC (Bld) [#/Vol] 6.3 10*3/uL Normal 4.4-11.0 [facility] Comment on above: Performed By: #### L 100.0100, L500.2500 ####[facility] [address] [place], [address] Carbon dioxide measurementOr dered By: Supa Brumfield on 01-11-2025 CO2 [Moles/Vol] 29.0 mmol/L 21.0-32.0 [facility] Chloride measurementOrdered By: Supa Brumfield on 01-11-2025 Chloride [Moles/Vol] 104 mmol/L 98-107 [facility] Discharge Instructionon 12-23 Discharge Instruction Normal [facility] Eosinophil percentageOrdered By: Supa Brumfield on 01-11-2025 Eosinophils/100 WBC (Bld) 5.7 % High 0-5 [facility] Erythrocyte distribution wid th ratioOrdered By: Supa Brumfield on 01-11-2025 Erythrocyte distribution width (RBC) [Ratio] 15.9 % High 11.6-14.6 [facility] Erythrocyte distribution wid th standard deviationOrdered By: Supa Brumfield on 01-11-2025 Erythrocyte distribution width (RBC) [Entitic vol] 52.4 fL High 35.1-43.9 [facility] Erythrocyte distribution width (RBC) [Ratio] 52.4 fl High 35.1-43.9 [facility] Estimated glomerular filtrat ion rate (GFR) AmericanOrdered By: Supa Brumfield on 01-11-2025 Estimated GFR (MDRD) Amer 57 mL/min Low >60 [facility] Comment on above: GFR Calc Estimation of creatinine yuliya aranceOrdered By: Supa Brumfield on 01-11-2025 Estimated Creatinine Clearance Calc 36.83 ml/min [facility] Glomerular filtration rate ( GFR) estimationOrdered By: Supa Brumfield on 01-11-2025 Estimated GFR (MDRD) Non-Af Amer 47 mL/min Low >60 [facility] Comment on above: Non- GFR Calc GFR/1.73 sq M.predicted among non-blacks MDRD (S/P/Bld) [Vol rate/Area] 47 mL/min/{1.73_m2} Low >60 [facility] Comment on above: Non- GFR Calc Glucose measurementOrdered B y: Supa Brumfield on 01-11-2025 Glucose [Mass/Vol] 122 mg/dL High 74-106 [facility] Comment on above: Fasting Glucose resu lt from 100 to 125 mg/dL suggests IMPAIRED HOMEOSTASIS per A.D.A. criteria. Hematocrit Auto (Bld) [Volum e fraction]Ordered By: Supa Brumfield on 01-11-2025 Hematocrit (Bld) [Volume fraction] 37.4 % 37-47 [facility] Hemoglobin measurementOrdere d By: Supa Brumfield on 01-11-2025 Hemoglobin (Bld) [Mass/Vol] 11.6 g/dL Low 12.0-15.0 [facility] Immature granulocytes/100 WB C Auto (Bld)Ordered By: Supa Brumfield on 01-11-2025 Immature granulocytes/100 WBC (Bld) 0.300 % 0.0-0.9 [facility] Comment on above: IG% - Immature Granu locytes (promyelocytes, myelocytes and metamyelocytes) > 1% indicates that a LEFT SHIFT is Present. Lymphocytes Auto (Unsp spec) [#/Vol]Ordered By: Supa Brumfield on 01-11-2025 Lymphocytes (Bld) [#/Vol] 1.17 10*3/uL 0.83-4.51 [facility] Lymphocytes/100 WBC Auto (Un sp spec)Ordered By: Supa Brumfield on 01-11-2025 Lymphocytes/100 WBC (Bld) 18.7 % Low 19-41 [facility] MCV (mean corpuscular volume ) determinationOrdered By: Supa Brumfield on 01-11-2025 MCV (RBC) [Entitic vol] 91.0 fL 81-99 [facility] Mean corpuscular hemoglobin (MCH) determinationOrdered By: Supa Brumfield on 01-11-2025 MCH (RBC) [Entitic mass] 28.2 pg 27.0-32.0 [facility] Mean corpuscular hemoglobin concentration (MCHC) determinationOrdered By: Supa Brumfield on 01-11-2025 MCHC (RBC) [Mass/Vol] 31.0 g/dL Low 32-36 [facility] Mean platelet volume determi nationOrdered By: Supa Brumfield on 01-11-2025 Platelet mean volume (Bld) [Entitic vol] 10.6 fL 6.2-12.0 [facility] Monocyte percentageOrdered B y: Supa Brumfield on 01-11-2025 Monocytes/100 WBC (Bld) 9.1 % 0-10 [facility] Neutrophil percentageOrdered By: Supa Brumfield on 01-11-2025 Neutrophils/100 WBC (Bld) 65.1 % 47-70 [facility] Nucleated red blood cell per centageOrdered By: Supa Brumfield on 01-11-2025 Nucleated RBC/100 WBC (Bld) [Ratio] 0 % 0-5 [facility] Platelet countOrdered By: Fanny Brumfield on 01-11-2025 Platelets (Bld) [#/Vol] 251 10*3/uL 150-450 [facility] Potassium measurementOrdered By: Supa Brumfield on 01-11-2025 Potassium [Moles/Vol] 3.6 mmol/L 3.5-5.1 [facility] RBC Auto (Bld) [#/Vol]Ordere d By: Supa Brumfield on 01-11-2025 RBC (Bld) [#/Vol] 4.11 10*6/uL Low 4.2-5.4 [facility] Serum anion gap measurementO rdered By: Supa Brumfield on 01-11-2025 Anion gap [Moles/Vol] 7 mmol/L 5-15 [facility] Serum or plasma calcium allan urement (mass/volume)Ordered By: Supa Brumfield on 01-11-2025 Calcium [Mass/Vol] 9.1 mg/dL 8.5-10.1 [facility] Serum or plasma creatinine m easurement (mass/volume)Ordered By: Supa Brumfield on 01-11-2025 Creatinine [Mass/Vol] 1.17 mg/dL High 0.55-1.02 [facility] Comment on above: The validity of the calculated GFR & GFRAA in patients over 70 years has not been determined. Clinical correlation is essential. Serum or plasma urea nitroge n measurement (mass/volume)Ordered By: Supa Brumfield on 01-11-2025 Urea nitrogen [Mass/Vol] 41 mg/dL High 7-18 [facility] Sodium levelOrdered By: Melissa Brumfield on 01-11-2025 Sodium [Moles/Vol] 140 mmol/L 136-145 [facility] White blood cell (WBC) count Ordered By: Supa Brumfield on 01-11-2025 WBC (Bld) [#/Vol] 6.3 10*3/uL 4.4-11.0 [facility] Abdomen Limitedon 01-10-2025 Abdomen Limited Normal [facility] Basic Metabolic Profile (BMP )on 01-10-2025 BUN/CRE 34.6 RATIO High 09-09 [facility] Comment on above: Performed By: #### L 500.2500, L501.2300, L501.5200, L500.3400, L100.0100 ####[facility] [address] [place], [address] CA,Total 9.4 mg/dL Normal 8.5-10.1 [facility] Comment on above: Performed By: #### L 500.2500, L501.2300, L501.5200, L500.3400, L100.0100 ####[facility] [address] [place], [address] Chloride [Moles/Vol] 107 mmol/L Normal 98-107 [facility] Comment on above: Performed By: #### L 500.2500, L501.2300, L501.5200, L500.3400, L100.0100 ####[facility] [address] [place], [address] CO2 [Moles/Vol] 25.0 mmol/L Normal 21.0-32.0 [facility] Comment on above: Performed By: #### L 500.2500, L501.2300, L501.5200, L500.3400, L100.0100 ####[facility] [address] [place], [address] Creatinine [Mass/Vol] 1.07 mg/dL High 0.55-1.02 [facility] Comment on above: Result Comment: The validity of the calculated GFR GFRAA in patients over70 years has not been determined. Clinical correlation isessential. Performed By: #### L 500.2500, L501.2300, L501.5200, L500.3400, L100.0100 ####[facility] [address] [place], [address] ECRCL 40.80 ml/min Normal [facility] Comment on above: Performed By: #### L 500.2500, L501.2300, L501.5200, L500.3400, L100.0100 ####[facility] [address] [place], [address] EST GFR - AA 63 mL/min Normal >60 [facility] Comment on above: Result Comment: Afri can Georgian GFR Calc Performed By: #### L 500.2500, L501.2300, L501.5200, L500.3400, L100.0100 ####[facility] [address] [place], [address] GAP 7 Normal 5-15 [facility] Comment on above: Performed By: #### L 500.2500, L501.2300, L501.5200, L500.3400, L100.0100 ####[facility] [address] [place], [address] GFR/1.73 sq M.predicted among non-blacks MDRD (S/P/Bld) [Vol rate/Area] 52 mL/min/{1.73_m2} Low >60 [facility] Comment on above: Result Comment: Non- GFR Calc Performed By: #### L 500.2500, L501.2300, L501.5200, L500.3400, L100.0100 ####[facility] [address] [place], [address] Glucose [Mass/Vol] 173 mg/dL High 74-106 [facility] Comment on above: Result Comment: Fast ing Glucose result greater than or equal to 126 mg/dLsuggests DIABETES MELLITUS per A.D.A. criteria. Performed By: #### L 500.2500, L501.2300, L501.5200, L500.3400, L100.0100 ####[facility] [address] [place], [address] Potassium [Moles/Vol] 3.9 mmol/L Normal 3.5-5.1 [facility] Comment on above: Performed By: #### L 500.2500, L501.2300, L501.5200, L500.3400, L100.0100 ####[facility] [address] [place], [address] Sodium [Moles/Vol] 139 mmol/L Normal 136-145 [facility] Comment on above: Performed By: #### L 500.2500, L501.2300, L501.5200, L500.3400, L100.0100 ####[facility] [address] [place], [address] Urea nitrogen [Mass/Vol] 37 mg/dL High 7-18 [facility] Comment on above: Performed By: #### L 500.2500, L501.2300, L501.5200, L500.3400, L100.0100 ####[facility] [address] [place], [address] Bilirubin directOrdered By: Supa Brumfield on 01-10-2025 Bilirubin.direct [Mass/Vol] 0.23 mg/dL Normal 0.00-0.30 [facility] Comment on above: Performed By: #### L 500.2500, L501.2300, L501.5200, L500.3400, L100.0100 ####[facility] [address] [place], [address] Bilirubin, totalOrdered By: Supa Brumfield on 01-10-2025 Bilirubin [Mass/Vol] 0.60 mg/dL Normal 0.20-1.00 [facility] Comment on above: For patients on eltr ombopag therapy, use of Dimension [place] TBIL is not recommended. Result Comment: For patients on eltrombopag therapy, use of Dimension [place] TBIL is not recommended. Performed By: #### L 500.2500, L501.2300, L501.5200, L500.3400, L100.0100 ####[facility] [address] [place], [address] Body Fluid Cell Count+Diffon 01-10-2025 PATH COMM/BF Reviewed Normal [facility] Comment on above: Order Comment: The r eference interval(s) and other method performancespecifications are unavailable for this body fluid.Comparison of the result with concentration in the blood,serum, or plasma is recommended. Result Comment: Nega tive for malignant cells.PLEASE ALSO REFER TO CYTOLOGY REPORT [id number] Luna M.D. 01/10/25 AMENDED REPORT 01/10/25 1421 PATH COMM/BF previously reported as: May follow Performed By: #### M 100.4001, L350.1000, M100.2000, M100.2900, L200.0200 ####[facility] [address] [place], [address] CBC W/Diff, Automatedon 12-23 0-2024 Absolute Lymph 0.82 X10 3/uL Low 0.83-4.51 [facility] Comment on above: Performed By: #### L 500.2500, L501.2300, L501.5200, L500.3400, L100.0100 ####[facility] [address] [place], [address] Absolute Neut 5.4 X10 3/uL Normal 2.0-7.7 [facility] Comment on above: Performed By: #### L 500.2500, L501.2300, L501.5200, L500.3400, L100.0100 ####[facility] [address] [place], [address] Basophils/100 WBC (Bld) 1.0 % Normal 0-1 [facility] Comment on above: Performed By: #### L 500.2500, L501.2300, L501.5200, L500.3400, L100.0100 ####[facility] [address] [place], [address] Eosinophils/100 WBC (Bld) 4.4 % Normal 0-5 [facility] Comment on above: Performed By: #### L 500.2500, L501.2300, L501.5200, L500.3400, L100.0100 ####[facility] [address] [place], [address] Erythrocyte distribution width (RBC) [Ratio] 15.9 % High 11.6-14.6 [facility] Comment on above: Performed By: #### L 500.2500, L501.2300, L501.5200, L500.3400, L100.0100 ####[facility] [address] [place], [address] Hematocrit (Bld) [Volume fraction] 38.5 % Normal 37-47 [facility] Comment on above: Performed By: #### L 500.2500, L501.2300, L501.5200, L500.3400, L100.0100 ####[facility] [address] [place], [address] Hemoglobin (Bld) [Mass/Vol] 11.9 g/dL Low 12.0-15.0 [facility] Comment on above: Performed By: #### L 500.2500, L501.2300, L501.5200, L500.3400, L100.0100 ####[facility] [address] [place], [address] IG% 0.100 Normal 0.0-0.9 [facility] Comment on above: Result Comment: IG% - Immature Granulocytes (promyelocytes, myelocytes andmetamyelocytes) > 1% indicates that a LEFT SHIFT is Present. Performed By: #### L 500.2500, L501.2300, L501.5200, L500.3400, L100.0100 ####[facility] [address] [place], [address] Lymphocytes/100 WBC (Bld) 11.6 % Low 19-41 [facility] Comment on above: Performed By: #### L 500.2500, L501.2300, L501.5200, L500.3400, L100.0100 ####[facility] [address] [place], [address] MCH (RBC) [Entitic mass] 28.0 pg Normal 27.0-32.0 [facility] Comment on above: Performed By: #### L 500.2500, L501.2300, L501.5200, L500.3400, L100.0100 ####[facility] [address] [place], [address] MCHC (RBC) [Mass/Vol] 30.9 g/dL Low 32-36 [facility] Comment on above: Performed By: #### L 500.2500, L501.2300, L501.5200, L500.3400, L100.0100 ####[facility] [address] [place], [address] MCV (RBC) [Entitic vol] 90.6 fL Normal 81-99 [facility] Comment on above: Performed By: #### L 500.2500, L501.2300, L501.5200, L500.3400, L100.0100 ####[facility] [address] [place], [address] Monocytes/100 WBC (Bld) 6.1 % Normal 0-10 [facility] Comment on above: Performed By: #### L 500.2500, L501.2300, L501.5200, L500.3400, L100.0100 ####[facility] [address] [place], [address] Neutrophils/100 WBC (Bld) 76.8 % High 47-70 [facility] Comment on above: Performed By: #### L 500.2500, L501.2300, L501.5200, L500.3400, L100.0100 ####[facility] [address] [place], [address] Nucleated RBC (Bld) [#/Vol] 0 10*3/uL Normal 0-5 [facility] Comment on above: Performed By: #### L 500.2500, L501.2300, L501.5200, L500.3400, L100.0100 ####[facility] [address] [place], [address] Platelet mean volume (Bld) [Entitic vol] 10.5 fL Normal 6.2-12.0 [facility] Comment on above: Performed By: #### L 500.2500, L501.2300, L501.5200, L500.3400, L100.0100 ####[facility] [address] [place], [address] Platelets (Bld) [#/Vol] 262 10*3/uL Normal 150-450 [facility] Comment on above: Performed By: #### L 500.2500, L501.2300, L501.5200, L500.3400, L100.0100 ####[facility] [address] [place], [address] RBC (Bld) [#/Vol] 4.25 10*6/uL Normal 4.2-5.4 [facility] Comment on above: Performed By: #### L 500.2500, L501.2300, L501.5200, L500.3400, L100.0100 ####[facility] [address] [place], [address] RDW SD 52.4 fl High 35.1-43.9 [facility] Comment on above: Performed By: #### L 500.2500, L501.2300, L501.5200, L500.3400, L100.0100 ####[facility] [address] [place], [address] WBC (Bld) [#/Vol] 7.1 10*3/uL Normal 4.4-11.0 [facility] Comment on above: Performed By: #### L 500.2500, L501.2300, L501.5200, L500.3400, L100.0100 ####[facility] [address] [place], [address] Gram Stainon 01-10-2025 GS Centrifuged Specimen ? Culture performed on centrifuged specimen Gram Stain Rare Red Blood Cells No organisms seen Normal [facility] Comment on above: Performed By: #### M 100.4001, L350.1000, M100.2000, M100.2900, L200.0200 ####[facility] [address] [place], [address] Liver Profileon 01-10-2025 ALK P 71 U/L Normal 45-117 [facility] Comment on above: Performed By: #### L 500.2500, L501.2300, L501.5200, L500.3400, L100.0100 ####[facility] [address] [place], [address] T PROT 7.0 g/dL Normal 6.4-8.2 [facility] Comment on above: Performed By: #### L 500.2500, L501.2300, L501.5200, L500.3400, L100.0100 ####[facility] [address] [place], [address] Liver ProfileOrdered By: Belinda Brumfield on 01-10-2025 AST [Catalytic activity/Vol] 19 U/L Normal 15-37 [facility] Comment on above: Performed By: #### L 500.2500, L501.2300, L501.5200, L500.3400, L100.0100 ####[facility] [address] [place], [address] Magnesium measurementOrdered By: Supa Brumfield on 01-10-2025 Magnesium [Mass/Vol] 1.9 mg/dL Normal 1.6-2.6 [facility] Comment on above: Performed By: #### L 500.2500, L501.2300, L501.5200, L500.3400, L100.0100 ####[facility] [address] [place], [address] Phosphoruson 01-10-2025 Phosphate [Mass/Vol] 3.7 mg/dL Normal 2.5-4.9 [facility] Comment on above: Performed By: #### L 500.2500, L501.2300, L501.5200, L500.3400, L100.0100 ####[facility] [address] [place], [address] Phosphorus measurementOrdere d By: Supa Brumfield on 01-10-2025 Phosphorus Level 3.7 mg/dL 2.5-4.9 [facility] Serum globulin measurementOr dered By: Supa Brumfield on 01-10-2025 Globulin (S) [Mass/Vol] 4.1 g/dL Normal 2.2-4.2 [facility] Comment on above: Performed By: #### L 500.2500, L501.2300, L501.5200, L500.3400, L100.0100 ####[facility] [address] [place], [address] Serum or plasma alanine albert otransferase (ALT) measurementOrdered By: Supa Brumfield on 01-10-2025 ALT [Catalytic activity/Vol] 16 U/L Normal 13-56 [facility] Comment on above: Performed By: #### L 500.2500, L501.2300, L501.5200, L500.3400, L100.0100 ####[facility] [address] [place], [address] Serum or plasma albumin allan urement (mass/volume)Ordered By: Supa Brumfield on 01-10-2025 Albumin [Mass/Vol] 2.9 g/dL Low 3.2-5.0 [facility] Comment on above: Performed By: #### L 500.2500, L501.2300, L501.5200, L500.3400, L100.0100 ####[facility] [address] [place], [address] Serum or plasma alkaline massimo sphatase measurementOrdered By: Supa Brumfield on 01-10-2025 ALP [Catalytic activity/Vol] 71 U/L 45-117 [facility] Total proteinOrdered By: Belinda Brumfield on 01-10-2025 Protein [Mass/Vol] 7.0 g/dL 6.4-8.2 [facility] Abdomen Limitedon 01-09-2025 Abdomen Limited Normal [facility] Albumin to globulin ratioOrd ered By: Supa Brumfield on 01-09-2025 Albumin/Globulin [Mass ratio] 0.7 {ratio} Low 0.9-2.4 [facility] Anaerobic cultureOrdered By: Supa Brumfield on 01-09-2025 Bacteria identified Anaer cx Nom (Unsp spec) No growth in 5 days. [facility] Appearance (Body fld)Ordered By: Supa Brumfield on 01-09-2025 Body Fluid Appearance SL CLDY [facility] Bacteria identified Anaer cx Nom (Unsp spec)Ordered By: Supa Brumfield on 01-09-2025 Anaerobic Culture No growth in 5 days. [facility] Basic Metabolic Profile (BMP )on 01-09-2025 BUN/CRE 31.9 RATIO High 10-20 [facility] Comment on above: Performed By: #### L 001.0705, L504.2610, L500.2500, L506.0400, L501.5200, L500.4100 ####[facility] [address] [place], [address] CA,Total 9.7 mg/dL Normal 8.5-10.1 [facility] Comment on above: Performed By: #### L 001.0705, L504.2610, L500.2500, L506.0400, L501.5200, L500.4100 ####[facility] [address] [place], [address] Chloride [Moles/Vol] 108 mmol/L High 98-107 [facility] Comment on above: Performed By: #### L 001.0705, L504.2610, L500.2500, L506.0400, L501.5200, L500.4100 ####[facility] [address] [place], [address] CO2 [Moles/Vol] 30.0 mmol/L Normal 21.0-32.0 [facility] Comment on above: Performed By: #### L 001.0705, L504.2610, L500.2500, L506.0400, L501.5200, L500.4100 ####[facility] [address] [place], [address] Creatinine [Mass/Vol] 1.19 mg/dL High 0.55-1.02 [facility] Comment on above: Result Comment: The validity of the calculated GFR GFRAA in patients over70 years has not been determined. Clinical correlation isessential. Performed By: #### L 001.0705, L504.2610, L500.2500, L506.0400, L501.5200, L500.4100 ####[facility] [address] [place], [address] ECRCL 37.21 ml/min Normal [facility] Comment on above: Performed By: #### L 001.0705, L504.2610, L500.2500, L506.0400, L501.5200, L500.4100 ####[facility] [address] [place], [address] EST GFR - AA 55 mL/min Low >60 [facility] Comment on above: Result Comment: Afri can Georgian GFR Calc Performed By: #### L 001.0705, L504.2610, L500.2500, L506.0400, L501.5200, L500.4100 ####[facility] [address] [place], [address] GAP 3 Low 5-15 [facility] Comment on above: Performed By: #### L 001.0705, L504.2610, L500.2500, L506.0400, L501.5200, L500.4100 ####[facility] [address] [place], [address] GFR/1.73 sq M.predicted among non-blacks MDRD (S/P/Bld) [Vol rate/Area] 46 mL/min/{1.73_m2} Low >60 [facility] Comment on above: Result Comment: Non- GFR Calc Performed By: #### L 001.0705, L504.2610, L500.2500, L506.0400, L501.5200, L500.4100 ####[facility] [address] [place], [address] Glucose [Mass/Vol] 136 mg/dL High 74-106 [facility] Comment on above: Result Comment: Fast ing Glucose result greater than or equal to 126 mg/dLsuggests DIABETES MELLITUS per A.D.A. criteria. Performed By: #### L 001.0705, L504.2610, L500.2500, L506.0400, L501.5200, L500.4100 ####[facility] [address] [place], [address] Potassium [Moles/Vol] 4.4 mmol/L Normal 3.5-5.1 [facility] Comment on above: Performed By: #### L 001.0705, L504.2610, L500.2500, L506.0400, L501.5200, L500.4100 ####[facility] [address] [place], [address] Sodium [Moles/Vol] 141 mmol/L Normal 136-145 [facility] Comment on above: Performed By: #### L 001.0705, L504.2610, L500.2500, L506.0400, L501.5200, L500.4100 ####[facility] [address] [place], [address] Urea nitrogen [Mass/Vol] 38 mg/dL High 7-18 [facility] Comment on above: Performed By: #### L 001.0705, L504.2610, L500.2500, L506.0400, L501.5200, L500.4100 ####[facility] [address] [place], [address] Body fluid appearance (nomin al result)Ordered By: Supa Brumfield on 01-09-2025 Appearance (Body fld) SL CLDY [facility] Body fluid color determinati onOrdered By: Supa Brumfield on 01-09-2025 Color (Body fld) LT YEL [facility] Body fluid cultureOrdered By : Supa Brumfield on 01-09-2025 Body Fluid Culture No growth aerobically. [facility] Body fluid leukocytes count (number/volume)Ordered By: Supa Brumfield on 01-09-2025 WBC (Body fld) [#/Vol] 0.321 10*3/uL [facility] Body fluid lymphocytes/100 l eukocytesOrdered By: Supa Brumfield on 01-09-2025 Lymphocytes/100 WBC (Body fld) 69 % [facility] Body fluid macrophage countO rdered By: Supa Brumfield on 01-09-2025 Macrophages (Body fld) [#/Vol] 14 % [facility] Body fluid mononuclear cell countOrdered By: Supa Brumfield on 01-09-2025 Body Fluid Mononuclear WBCs 0.300 10^3/uL [facility] Body fluid mononuclear cell percentageOrdered By: Supa Brumfield on 01-09-2025 Mononuclear cells/100 WBC (Body fld) 93.5 % [facility] Body fluid other cell count as percentage of leukocytesOrdered By: Supa Brumfield on 01-09-2025 Other cells/100 WBC (Body fld) 1 % [facility] Body fluid segmented neutrop hils count (number/volume)Ordered By: Supa Brumfield on 01-09-2025 Segmented neutrophils (Body fld) [#/Vol] 12 % [facility] CBC W/Diff, Automatedon 12-22 Absolute Lymph 0.81 X10 3/uL Low 0.83-4.51 [facility] Comment on above: Performed By: #### L 501.9985, L100.0100, L501.2300 ####[facility] [address] [place], [address] Absolute Neut 5.8 X10 3/uL Normal 2.0-7.7 [facility] Comment on above: Performed By: #### L 501.9985, L100.0100, L501.2300 ####[facility] [address] [place], [address] Basophils/100 WBC (Bld) 1.1 % High 0-1 [facility] Comment on above: Performed By: #### L 501.9985, L100.0100, L501.2300 ####[facility] [address] [place], [address] Eosinophils/100 WBC (Bld) 3.6 % Normal 0-5 [facility] Comment on above: Performed By: #### L 501.9985, L100.0100, L501.2300 ####[facility] [address] [place], [address] Erythrocyte distribution width (RBC) [Ratio] 16.0 % High 11.6-14.6 [facility] Comment on above: Performed By: #### L 501.9985, L100.0100, L501.2300 ####[facility] [address] [place], [address] Hematocrit (Bld) [Volume fraction] 39.4 % Normal 37-47 [facility] Comment on above: Performed By: #### L 501.9985, L100.0100, L501.2300 ####[facility] [address] [place], [address] Hemoglobin (Bld) [Mass/Vol] 12.2 g/dL Normal 12.0-15.0 [facility] Comment on above: Performed By: #### L 501.9985, L100.0100, L501.2300 ####[facility] [address] [place], [address] IG% 0.400 Normal 0.0-0.9 [facility] Comment on above: Result Comment: IG% - Immature Granulocytes (promyelocytes, myelocytes andmetamyelocytes) > 1% indicates that a LEFT SHIFT is Present. Performed By: #### L 501.9985, L100.0100, L501.2300 ####[facility] [address] [place], [address] Lymphocytes/100 WBC (Bld) 10.8 % Low 19-41 [facility] Comment on above: Performed By: #### L 501.9985, L100.0100, L501.2300 ####[facility] [address] [place], [address] MCH (RBC) [Entitic mass] 28.3 pg Normal 27.0-32.0 [facility] Comment on above: Performed By: #### L 501.9985, L100.0100, L501.2300 ####[facility] [address] [place], [address] MCHC (RBC) [Mass/Vol] 31.0 g/dL Low 32-36 [facility] Comment on above: Performed By: #### L 501.9985, L100.0100, L501.2300 ####[facility] [address] [place], [address] MCV (RBC) [Entitic vol] 91.4 fL Normal 81-99 [facility] Comment on above: Performed By: #### L 501.9985, L100.0100, L501.2300 ####[facility] [address] [place], [address] Monocytes/100 WBC (Bld) 7.3 % Normal 0-10 [facility] Comment on above: Performed By: #### L 501.9985, L100.0100, L501.2300 ####[facility] [address] [place], [address] Neutrophils/100 WBC (Bld) 76.8 % High 47-70 [facility] Comment on above: Performed By: #### L 501.9985, L100.0100, L501.2300 ####[facility] [address] [place], [address] Nucleated RBC (Bld) [#/Vol] 0 10*3/uL Normal 0-5 [facility] Comment on above: Performed By: #### L 501.9985, L100.0100, L501.2300 ####[facility] [address] [place], [address] Platelet mean volume (Bld) [Entitic vol] 10.1 fL Normal 6.2-12.0 [facility] Comment on above: Performed By: #### L 501.9985, L100.0100, L501.2300 ####[facility] [address] [place], [address] Platelets (Bld) [#/Vol] 275 10*3/uL Normal 150-450 [facility] Comment on above: Performed By: #### L 501.9985, L100.0100, L501.2300 ####[facility] [address] [place], [address] RBC (Bld) [#/Vol] 4.31 10*6/uL Normal 4.2-5.4 [facility] Comment on above: Performed By: #### L 501.9985, L100.0100, L501.2300 ####[facility] [address] [place], [address] RDW SD 53.1 fl High 35.1-43.9 [facility] Comment on above: Performed By: #### L 501.9985, L100.0100, L501.2300 ####[facility] [address] [place], [address] WBC (Bld) [#/Vol] 7.5 10*3/uL Normal 4.4-11.0 [facility] Comment on above: Performed By: #### L 501.9985, L100.0100, L501.2300 ####[facility] [address] [place], [address] Cells counted Molgen (Bld/Ti ss) [#]Ordered By: Supa Brumfield on 01-09-2025 Body Fluid Total Cells Counted 0.333 10^3/ul High 0.000-0.00 0 [facility] Comment on above: This is the Total Nu mber of Nucleated Cell Types in the Body Fluid. Chest Insp/Exp 2 Viewon 12-22 Chest Insp/Exp 2 View Normal [facility] Color (Body fld)Ordered By: Supa Brumfield on 01-09-2025 Body Fluid Color LT YEL [facility] Consultation - Cardiologyon 01-09-2025 Consultation - Cardiology Normal [facility] Cytology report Cyto stain D oc (Body fld)Ordered By: Supa Brumfield on 01-09-2025 Miscellaneous Cytology SEE PATHOLOGY REPORT [facility] Comment on above: Specimen submitted t o Anatomical Pathology Department for testing. Cytology report of Body flui d Cyto stainOrdered By: Supa Brumfield on 01-09-2025 Cytology report Cyto stain Doc (Body fld) SEE PATHOLOGY REPORT [facility] Comment on above: Specimen submitted t o Anatomical Pathology Department for testing. Cytology, Body Fluid / CSFon 01-09-2025 CYTOLOGY,BF/CSF SEE PATHOLOGY REPORT Normal [facility] Comment on above: Result Comment: Spec imen submitted to Anatomical Pathology Department fortesting. Performed By: #### M 100.4001, L350.1000, M100.2000, M100.2900, L200.0200 ####[facility] [address] [place], [place], [address] Direct serum free thyroxine (FT4) measurementOrdered By: Supa Brumfield on 01-09-2025 Free T4 [Mass/Vol] 1.21 ng/dL 0.76-1.46 [facility] Echo Completeon 01-09-2025 Echo Complete Normal [facility] Glucose, Body Fluidon 2024 GLU,BF 142 mg/dL High 40-70 [facility] Comment on above: Performed By: #### L 503.0300, L504.0250, L503.0100 ####[facility] [address] [place], [place], [id number] Gram stainOrdered By: Katie Brumfield on 01-09-2025 Microscopic observation Gram stain Nom (Unsp spec) [facility] Hemoglobin A1con 01-09-2025 HbA1c (Bld) [Mass fraction] 6.7 % High 3.8-5.6 [facility] Comment on above: Result Comment: Norm al < 5.7 % Prediabetic 5.7 - 6.4 % Diabetic >or= 6.5 % Please note range changes. Performed By: #### L 501.9985, L100.0100, L501.2300 ####[facility] [address] [place], [place], [id number] Hemoglobin A1c percentageOrd ered By: Supa Brumfield on 01-09-2025 HbA1c (Bld) [Mass fraction] 6.7 % High 3.8-5.6 [facility] Comment on above: Normal < 5.7 % Predi abetic 5.7 - 6.4 % Diabetic >or= 6.5 % Please note range changes. High density lipoprotein (HD L) measurementOrdered By: Supa Brumfield on 01-09-2025 Cholesterol in HDL [Mass/Vol] 74 mg/dL >40 [facility] Comment on above: The drugs N-Acetylcy steine and Metamizole may falsely depress this assay. Reference Range HDL <40 mg/dL Low HDL Cholesterol HDL >or= 60 mg/dL High HDL Cholesterol LDHon 01-09-2025 LDH 160 U/L Normal 84-246 [facility] Comment on above: Performed By: #### L 001.0705, L504.2610, L500.2500, L506.0400, L501.5200, L500.4100 ####[facility] [address] [place], [address] LDH,Body Fluidon 01-09-2025 LDH,BF 51 Units/L Normal Not Establ. [facility] Comment on above: Performed By: #### L 503.0300, L504.0250, L503.0100 ####[facility] [address] [place], [address] Lactate dehydrogenase (LDH) measurementOrdered By: Supa Brumfield on 01-09-2025 LDH [Catalytic activity/Vol] 160 U/L 84-246 [facility] Lipid Profileon 01-09-2025 Cholesterol [Mass/Vol] 118 mg/dL Normal 200 [facility] Comment on above: Result Comment: <200 mg/dL Desirable 200-240 mg/dL Borderline >240 mg/dL High Risk Performed By: #### L 001.0705, L504.2610, L500.2500, L506.0400, L501.5200, L500.4100 ####[facility] [address] [place], [address] Cholesterol in HDL [Mass/Vol] 74 mg/dL Normal [facility] Comment on above: Result Comment: The drugs N-Acetylcysteine and Metamizole may falselydepress this assay. Reference Range HDL <40 mg/dL Low HDL Cholesterol HDL >or= 60 mg/dL High HDL Cholesterol Performed By: #### L 001.0705, L504.2610, L500.2500, L506.0400, L501.5200, L500.4100 ####[facility] [address] [place], [address] Cholesterol in LDL [Mass/Vol] 27 mg/dL Normal 0-130 [facility] Comment on above: Performed By: #### L 001.0705, L504.2610, L500.2500, L506.0400, L501.5200, L500.4100 ####[facility] [address] [place], [place], [address]([phone]) Cholesterol in VLDL [Mass/Vol] 17 mg/dL Normal 5-40 [facility] Comment on above: Performed By: #### L 001.0705, L504.2610, L500.2500, L506.0400, L501.5200, L500.4100 ####[facility] [address] [place], [place], [phone]) Triglyceride [Mass/Vol] 86 mg/dL Normal [facility] Comment on above: Result Comment: The drugs N-Acetylcysteine and Metamizole may falselydepress this assay.Serum Triglycerides Reference Interval Normal <150 mg/dL Borderline high 150 - 199 mg/dL High 200 - 499 mg/dL Very High > or = 500 mg/dL Performed By: #### L 001.0705, L504.2610, L500.2500, L506.0400, L501.5200, L500.4100 ####[facility] [address] [facility] [place], [place], [address](439) Low density lipoprotein (LDL ) cholesterol measurementOrdered By: Supa Brumfield on 01-09-2025 Cholesterol in LDL [Mass/Vol] 27 mg/dL 0-130 [facility] Lymphocytes/100 WBC (Body fl d)Ordered By: Supa Brumfield on 01-09-2025 Body Fluid Lymphocytes 69 % [facility] Macrophages (Body fld) [#/Vo l]Ordered By: Supa Brumfield on 01-09-2025 Body Fluid Macrophages 14 % [facility] Magnesiumon 01-09-2025 Magnesium [Mass/Vol] 2.0 mg/dL Normal 1.6-2.6 [facility] Comment on above: Performed By: #### L 001.0705, L504.2610, L500.2500, L506.0400, L501.5200, L500.4100 ####[facility] [address] [place], [address] Monocyte detectionOrdered By : Supa Brumfield on 01-09-2025 Body Fluid Monocytes 4 % [facility] Monocytes/100 WBC (Bld) 4 % [facility] Mononuclear cells/100 WBC (B henry fld)Ordered By: Supa Brumfield on 01-09-2025 Body Fluid Mononuclear WBCs (%) 93.5 % [facility] No Panel InformationOrdered By: Supa Brumfield on 01-09-2025 Body Fluid Comment 2 SEE COMMENT [facility] Body Fluid RBC 1290 /mm3 [facility] Operative Reporton Operative Report Normal [facility] Other cells/100 WBC (Body fl d)Ordered By: Supa Brumfield on 01-09-2025 Body Fluid Other Cells 1 % [facility] Pathologist interpretation ( Body fld) [Interp]Ordered By: Supa Brumfield on 01-09-2025 Body Fluid Pathologist Comment Reviewed [facility] Comment on above: Previous reported re sult: May follow Edited by: OSCAR on 01/10/25:1421Negative for malignant cells.PLEASE ALSO REFER TO CYTOLOGY REPORT Dwayne Luna M.D. 01/10/25 AMENDED REPORT 01/10/251420 PATH COMM/BF previously reported as: May follow Pathologist interpretation o f Body fluid testsOrdered By: Supa Brumfield on 01-09-2025 Pathologist interpretation (Body fld) [Interp] Reviewed [facility] Comment on above: Previous reported re sult: May follow Edited by: OSCAR on 01/10/25:1421Negative for malignant cells.PLEASE ALSO REFER TO CYTOLOGY REPORT Dwayne Luna M.D. 01/10/25 AMENDED REPORT 01/10/251420 PATH COMM/BF previously reported as: May follow Phosphoruson 01-09-2025 Phosphate [Mass/Vol] 4.1 mg/dL Normal 2.5-4.9 [facility] Comment on above: Performed By: #### L 501.9985, L100.0100, L501.2300 ####[facility] [address] [place], [address] Polymorphonuclear (PMN) leuk ocyte countOrdered By: Supa Brumfield on 01-09-2025 Body Fluid Polynuclear WBCs (%) 6.5 % [facility] Protein, Body Fluidon 2024 Protein [Mass/Vol] 2.5 g/dL Normal Not Establ. [facility] Comment on above: Performed By: #### L 503.0300, L504.0250, L503.0100 ####[facility] [address] [place], [address] Protein, Totalon 01-09-2025 Albumin/Globulin [Mass ratio] 0.7 {ratio} Low 0.9-2.4 [facility] Comment on above: Performed By: #### L 001.0705, L504.2610, L500.2500, L506.0400, L501.5200, L500.4100 ####[facility] [address] [place], [address] Globulin (S) [Mass/Vol] 4.4 g/dL High 2.2-4.2 [facility] Comment on above: Performed By: #### L 001.0705, L504.2610, L500.2500, L506.0400, L501.5200, L500.4100 ####[facility] [address] [place], [address] T PROT 7.5 g/dL Normal 6.4-8.2 [facility] Comment on above: Performed By: #### L 001.0705, L504.2610, L500.2500, L506.0400, L501.5200, L500.4100 ####[facility] [address] [place], [address] Segmented neutrophils (Body fld) [#/Vol]Ordered By: Supa Brumfield on 01-09-2025 Body Fluid Neutrophils 12 % [facility] Serum or plasma cholesterol measurement (mass/volume)Ordered By: Supa Brumfield on 01-09-2025 Cholesterol [Mass/Vol] 118 mg/dL <200 [facility] Comment on above: <200 mg/dL Desirable 200-240 mg/dL Borderline >240 mg/dL High Risk Special Stain Group IIon Special Stain Group II Normal [facility] Comment on above: Performed By: #### P SSII ####[facility] [address] [place], [place], [id number] Specimen source Nom (Body fl d)Ordered By: Supa Brumfield on 01-09-2025 Body Fluid Source PLEURAL FLUID [facility] Specimen source identificati on of body fluidOrdered By: Supa Brumfield on 01-09-2025 Specimen source Nom (Body fld) PLEURAL FLUID [facility] T4 Free Directon 01-09-2025 T4 FREE DIRECT 1.21 ng/dL Normal 0.76-1.46 [facility] Comment on above: Performed By: #### L 001.0705, L504.2610, L500.2500, L506.0400, L501.5200, L500.4100 ####[facility] [address] [place], [place], [id number] Total cell countOrdered By: Supa Brumfield on 01-09-2025 Cells counted Molgen (Bld/Tiss) [#] 0.333 10^3/ul High 0.000-0.00 0 [facility] Comment on above: This is the Total Nu mber of Nucleated Cell Types in the Body Fluid. Triglycerides measurementOrd ered By: Supa Brumfield on 01-09-2025 Triglyceride [Mass/Vol] 86 mg/dL <199 [facility] Comment on above: The drugs N-Acetylcy steine and Metamizole may falsely depress this assay.Serum Triglycerides Reference Interval Normal <150 mg/dL Borderline high 150 - 199 mg/dL High 200 - 499 mg/dL Very High > or = 500 mg/dL Very low density lipoprotein (VLDL) cholesterol measurementOrdered By: Supa Brumfield on 01-09-2025 Very low density lipoprotein (VLDL) cholesterol measurement 17 mg/dL 5-40 [facility] VLDL Cholesterol 17 mg/dL 5-40 [facility] WBC (Body fld) [#/Vol]Ordere d By: Supa Brumfield on 01-09-2025 Body Fluid WBC 0.321 10^3/uL [facility] Body Fluid Polynuclear WBCs (#) 0.021 10^3/uL [facility] WBC body fluidOrdered By: Fanny Brumfield on 01-09-2025 WBC (Body fld) [#/Vol] 0.021 10*3/uL [facility] Activated partial thrombopla stin time (aPTT) in platelet poor plasma by coagulation aOrdered By: Jey Madrid on 01-08-2025 aPTT Coag (PPP) [Time] 28.0 s 24.1-36.2 [facility] BNP (brain natriuretic pepti de measurement)Ordered By: Jey Madrid on 01-08-2025 Natriuretic peptide B (Bld) [Mass/Vol] 230.5 pg/mL High 0-100 [facility] BNP,B-Type NATRIURETIC PEPTI [place] 01-08-2025 Natriuretic peptide B (Bld) [Mass/Vol] 230.5 pg/mL High 0-100 [facility] Comment on above: Performed By: #### L 500.2500, L300.4310, L100.0100, L300.3900, L501.9520, L501.4020, L503.6620 ####[facility] [address] [place], [place], [id number] Basic Metabolic Profile (BMP )on 01-08-2025 BUN/CRE 29.2 RATIO High 10-20 [facility] Comment on above: Order Comment: 'TROP ' Serial specimen #1, #2 or #3: 1 Performed By: #### L 500.2500, L300.4310, L100.0100, L300.3900, L501.9520, L501.4020, L503.6620 ####[facility] [address] [place], [address] CA,Total 10.1 mg/dL Normal 8.5-10.1 [facility] Comment on above: Order Comment: 'TROP ' Serial specimen #1, #2 or #3: 1 Performed By: #### L 500.2500, L300.4310, L100.0100, L300.3900, L501.9520, L501.4020, L503.6620 ####[facility] [address] [place], [address] Chloride [Moles/Vol] 105 mmol/L Normal 98-107 [facility] Comment on above: Order Comment: 'TROP ' Serial specimen #1, #2 or #3: 1 Performed By: #### L 500.2500, L300.4310, L100.0100, L300.3900, L501.9520, L501.4020, L503.6620 ####[facility] [address] [place], [address] CO2 [Moles/Vol] 23.0 mmol/L Normal 21.0-32.0 [facility] Comment on above: Order Comment: 'TROP ' Serial specimen #1, #2 or #3: 1 Performed By: #### L 500.2500, L300.4310, L100.0100, L300.3900, L501.9520, L501.4020, L503.6620 ####[facility] [address] [place], [address] Creatinine [Mass/Vol] 1.37 mg/dL High 0.55-1.02 [facility] Comment on above: Order Comment: 'TROP ' Serial specimen #1, #2 or #3: 1 Result Comment: The validity of the calculated GFR GFRAA in patients over70 years has not been determined. Clinical correlation isessential. Performed By: #### L 500.2500, L300.4310, L100.0100, L300.3900, L501.9520, L501.4020, L503.6620 ####[facility] [address] [place], [address] ECRCL 33.72 ml/min Normal [facility] Comment on above: Order Comment: 'TROP ' Serial specimen #1, #2 or #3: 1 Performed By: #### L 500.2500, L300.4310, L100.0100, L300.3900, L501.9520, L501.4020, L503.6620 ####[facility] [address] [place], [address] EST GFR - AA 47 mL/min Low >60 [facility] Comment on above: Order Comment: 'TROP ' Serial specimen #1, #2 or #3: 1 Result Comment: Afri can Georgian GFR Calc Performed By: #### L 500.2500, L300.4310, L100.0100, L300.3900, L501.9520, L501.4020, L503.6620 ####[facility] [address] [place], [address] GAP 12 Normal 5-15 [facility] Comment on above: Order Comment: 'TROP ' Serial specimen #1, #2 or #3: 1 Performed By: #### L 500.2500, L300.4310, L100.0100, L300.3900, L501.9520, L501.4020, L503.6620 ####[facility] [address] [place], [address] GFR/1.73 sq M.predicted among non-blacks MDRD (S/P/Bld) [Vol rate/Area] 39 mL/min/{1.73_m2} Low >60 [facility] Comment on above: Order Comment: 'TROP ' Serial specimen #1, #2 or #3: 1 Result Comment: Non- GFR Calc Performed By: #### L 500.2500, L300.4310, L100.0100, L300.3900, L501.9520, L501.4020, L503.6620 ####[facility] [address] [place], [address] Glucose [Mass/Vol] 145 mg/dL High 74-106 [facility] Comment on above: Order Comment: 'TROP ' Serial specimen #1, #2 or #3: 1 Result Comment: Fast ing Glucose result greater than or equal to 126 mg/dLsuggests DIABETES MELLITUS per A.D.A. criteria. Performed By: #### L 500.2500, L300.4310, L100.0100, L300.3900, L501.9520, L501.4020, L503.6620 ####[facility] [address] [place], [address] Potassium [Moles/Vol] 4.0 mmol/L Normal 3.5-5.1 [facility] Comment on above: Order Comment: 'TROP ' Serial specimen #1, #2 or #3: 1 Performed By: #### L 500.2500, L300.4310, L100.0100, L300.3900, L501.9520, L501.4020, L503.6620 ####[facility] [address] [place], [address] Sodium [Moles/Vol] 140 mmol/L Normal 136-145 [facility] Comment on above: Order Comment: 'TROP ' Serial specimen #1, #2 or #3: 1 Performed By: #### L 500.2500, L300.4310, L100.0100, L300.3900, L501.9520, L501.4020, L503.6620 ####[facility] [address] [place], [address] Urea nitrogen [Mass/Vol] 40 mg/dL High 7-18 [facility] Comment on above: Order Comment: 'TROP ' Serial specimen #1, #2 or #3: 1 Performed By: #### L 500.2500, L300.4310, L100.0100, L300.3900, L501.9520, L501.4020, L503.6620 ####[facility] [address] [place], [address] Body fluid lactate dehydroge nase (LDH) measurementOrdered By: Supa Brumfield on 01-08-2025 Body Fluid Lactate Dehydrogenase 51 Units/L Not Establ. [facility] Body fluid total protein trisha surementOrdered By: Supa Brumfield on 01-08-2025 Protein (Body fld) [Mass/Vol] 2.5 g/dL Not Establ. [facility] CBC W/Diff, Automatedon 12-22 Absolute Lymph 1.24 X10 3/uL Normal 0.83-4.51 [facility] Comment on above: Performed By: #### L 500.2500, L300.4310, L100.0100, L300.3900, L501.9520, L501.4020, L503.6620 ####[facility] [address] [place], [address] Absolute Neut 6.2 X10 3/uL Normal 2.0-7.7 [facility] Comment on above: Performed By: #### L 500.2500, L300.4310, L100.0100, L300.3900, L501.9520, L501.4020, L503.6620 ####[facility] [address] [place], [address] Basophils/100 WBC (Bld) 1.5 % High 0-1 [facility] Comment on above: Performed By: #### L 500.2500, L300.4310, L100.0100, L300.3900, L501.9520, L501.4020, L503.6620 ####[facility] [address] [place], [address] Eosinophils/100 WBC (Bld) 3.9 % Normal 0-5 [facility] Comment on above: Performed By: #### L 500.2500, L300.4310, L100.0100, L300.3900, L501.9520, L501.4020, L503.6620 ####[facility] [address] [place], [address] Erythrocyte distribution width (RBC) [Ratio] 16.0 % High 11.6-14.6 [facility] Comment on above: Performed By: #### L 500.2500, L300.4310, L100.0100, L300.3900, L501.9520, L501.4020, L503.6620 ####[facility] [address] [place], [address]) Hematocrit (Bld) [Volume fraction] 41.3 % Normal 37-47 [facility] Comment on above: Performed By: #### L 500.2500, L300.4310, L100.0100, L300.3900, L501.9520, L501.4020, L503.6620 ####[facility] [address] [place], [address] Hemoglobin (Bld) [Mass/Vol] 12.9 g/dL Normal 12.0-15.0 [facility] Comment on above: Performed By: #### L 500.2500, L300.4310, L100.0100, L300.3900, L501.9520, L501.4020, L503.6620 ####[facility] [address] [place], [address] IG% 0.600 Normal 0.0-0.9 [facility] Comment on above: Result Comment: IG% - Immature Granulocytes (promyelocytes, myelocytes andmetamyelocytes) > 1% indicates that a LEFT SHIFT is Present. Performed By: #### L 500.2500, L300.4310, L100.0100, L300.3900, L501.9520, L501.4020, L503.6620 ####[facility] [address] [place], [address] Lymphocytes/100 WBC (Bld) 14.4 % Low 19-41 [facility] Comment on above: Performed By: #### L 500.2500, L300.4310, L100.0100, L300.3900, L501.9520, L501.4020, L503.6620 ####[facility] [address] [place], [address] MCH (RBC) [Entitic mass] 28.5 pg Normal 27.0-32.0 [facility] Comment on above: Performed By: #### L 500.2500, L300.4310, L100.0100, L300.3900, L501.9520, L501.4020, L503.6620 ####[facility] [address] [place], [address] MCHC (RBC) [Mass/Vol] 31.2 g/dL Low 32-36 [facility] Comment on above: Performed By: #### L 500.2500, L300.4310, L100.0100, L300.3900, L501.9520, L501.4020, L503.6620 ####[facility] [address] [place], [address] MCV (RBC) [Entitic vol] 91.2 fL Normal 81-99 [facility] Comment on above: Performed By: #### L 500.2500, L300.4310, L100.0100, L300.3900, L501.9520, L501.4020, L503.6620 ####[facility] [address] [place], [address] Monocytes/100 WBC (Bld) 7.6 % Normal 0-10 [facility] Comment on above: Performed By: #### L 500.2500, L300.4310, L100.0100, L300.3900, L501.9520, L501.4020, L503.6620 ####[facility] [address] [place], [address] Neutrophils/100 WBC (Bld) 72.0 % High 47-70 [facility] Comment on above: Performed By: #### L 500.2500, L300.4310, L100.0100, L300.3900, L501.9520, L501.4020, L503.6620 ####[facility] [address] [place], [address] Nucleated RBC (Bld) [#/Vol] 0 10*3/uL Normal 0-5 [facility] Comment on above: Performed By: #### L 500.2500, L300.4310, L100.0100, L300.3900, L501.9520, L501.4020, L503.6620 ####[facility] [address] [place], [address] Platelet mean volume (Bld) [Entitic vol] 10.5 fL Normal 6.2-12.0 [facility] Comment on above: Performed By: #### L 500.2500, L300.4310, L100.0100, L300.3900, L501.9520, L501.4020, L503.6620 ####[facility] [address] [place], [address] Platelets (Bld) [#/Vol] 330 10*3/uL Normal 150-450 [facility] Comment on above: Performed By: #### L 500.2500, L300.4310, L100.0100, L300.3900, L501.9520, L501.4020, L503.6620 ####[facility] [address] [place], [address] RBC (Bld) [#/Vol] 4.53 10*6/uL Normal 4.2-5.4 [facility] Comment on above: Performed By: #### L 500.2500, L300.4310, L100.0100, L300.3900, L501.9520, L501.4020, L503.6620 ####[facility] [address] [place], [place], [address] RDW SD 52.7 fl High 35.1-43.9 [facility] Comment on above: Performed By: #### L 500.2500, L300.4310, L100.0100, L300.3900, L501.9520, L501.4020, L503.6620 ####[facility] [address] [place], [place], [address] WBC (Bld) [#/Vol] 8.6 10*3/uL Normal 4.4-11.0 [facility] Comment on above: Performed By: #### L 500.2500, L300.4310, L100.0100, L300.3900, L501.9520, L501.4020, L503.6620 ####[facility] [address] [place], [place], [address] CNOVon 01-08-2025 CNOV Office Visit (INTMWS ) BLESSING JACKSON I ([id number]) 1940 F Date Time Provider Department 01/08/25 [...] and unspecified hyperlipidemia PVD (peripheral vascular disease) ([facility]) Special screening for malignant neoplasms, colon 12/12/2014 [...] sentinel node biopsy - Dr. Reynolds - OS PAST SURGICAL HISTORY OF Right 02/20/2013 Right [facility] N/CARPAL TUNNEL SURG Right [facility] - 2019? FAMILY HISTORY P (more content not included)... 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 PACEMAKER LEFT AXIS DEVIATION COMPLETE RIGHT BUNDLE BRANCH BLOCK ABNORMAL ECG Confirmed by MD REECE QARAB ([id number]) on 01/11/2025 3:30:20 PM NAME : BLESSING JACKSON PID : [id number] : 1940 Gender : Female Race : ORD : [id number] Procedure Date : Jan 08 2025 10:02:37 Edit Date : Jan 11 2025 15:30:21 Diagnosis: ATRIAL FIBRILLATION WITH RAPID VENTRICULAR RESPONSE WITH A COMPETING JUNCTIONAL PACEMAKER LEFT AXIS DEVIATION COMPLETE RIGHT BUNDLE BRANCH BLOCK ABNORMAL ECG Confirmed by MD REECE QARAB ([id number]) on 01/11/2025 3:30:20 PM Test Reason : I49.9 Cardiac arrhythmia, unspecified cardiac arrhythmia type Location : 185 : [facility] Overread By : MD REECE QARAB Edited By : MD REECE QARAB Referred By : , Acquired by : Camila Mitchell LPN, Normal [facility] Emergency Department Summary on 01-08-2025 Emergency Department Summary Normal [facility] Glucose, body fluidOrdered B y: Supa Brumfield on 01-08-2025 Body Fluid Glucose 142 mg/dL High 40-70 [facility] H AND P Exam - Hospitaliston 01-08-2025 H&P Exam - Hospitalist Normal [facility] International normalized rat io (INR) calculationOrdered By: Jey Madrid on 01-08-2025 INR Coag (Bld) [Relative time] 1.2 {INR} [facility] L501.4020on 01-08-2025 TROPONIN-I HS 13 pg/mL Normal 3.0-54.0 [facility] Comment on above: Order Comment: 'TROP ' Serial specimen #1, #2 or #3: 1 Result Comment: Edwin haney Note: New Test Units and Gender Specific Reference Ranges. For more information see Policy Stat Procedure [place] High Sensitivity Troponin (TNIH) and attachments. Performed By: #### L 500.2500, L300.4310, L100.0100, L300.3900, L501.9520, L501.4020, L503.6620 ####[facility] [address] [place], [address] Partial Thromboplast Timeon 01-08-2025 aPTT Coag (Bld) [Time] 28.0 s Normal 24.1-36.2 [facility] Comment on above: Performed By: #### L 500.2500, L300.4310, L100.0100, L300.3900, L501.9520, L501.4020, L503.6620 ####[facility] [address] [place], [address] Protein (Body fld) [Mass/Vol ]Ordered By: Supa Brumfield on 01-08-2025 Body Fluid Total Protein 2.5 g/dL Not Establ. [facility] Prothrombin Time w/INRon INR Coag (PPP) [Relative time] 1.2 {INR} Normal [facility] Comment on above: Performed By: #### L 500.2500, L300.4310, L100.0100, L300.3900, L501.9520, L501.4020, L503.6620 ####[facility] [address] [place], [address] PT Coag (PPP) [Time] 15.1 s High 11.7-14.9 [facility] Comment on above: Performed By: #### L 500.2500, L300.4310, L100.0100, L300.3900, L501.9520, L501.4020, L503.6620 ####[facility] [address] [place], [address] Prothrombin timeOrdered By: Jey Madrid on 01-08-2025 PT Coag (PPP) [Time] 15.1 s High 11.7-14.9 [facility] Serum or plasma thyroid stim ulating hormone (TSH) measurement (units/volume)Ordered By: Jey Madrid on 01-08-2025 TSH Qn 4.920 uIU/mL High 0.358-3.74 0 [facility] TSH QnOrdered By: Jey campos on 01-08-2025 Thyroid Stimulating Hormone (TSH) 4.920 uIU/mL High 0.358-3.74 0 [facility] Thyroid Stim Hormone (TSH)on 01-08-2025 TSH 4.920 uIU/mL High 0.358-3.74 0 [facility] Comment on above: Order Comment: 'TROP ' Serial specimen #1, #2 or #3: 1 Performed By: #### L 500.2500, L300.4310, L100.0100, L300.3900, L501.9520, L501.4020, L503.6620 ####[facility] [address] [place], [address] Troponin IOrdered By: Jey johnson on 01-08-2025 Troponin I 13 pg/mL 3.0-54.0 [facility] Comment on above: Please Note: New Abimael t Units and Gender Specific Reference Ranges. For more information see Policy Stat Procedure [place] High Sensitivity Troponin (TNIH) and attachments. Troponin I High Sensitivity 13 pg/mL 3.0-54.0 [facility] Comment on above: Please Note: New Abimael t Units and Gender Specific Reference Ranges. For more information see Policy Stat Procedure [place] High Sensitivity Troponin (TNIH) and attachments. aPTT Coag (PPP) [Time]Ordere d By: Jey Madrid on 01-08-2025 aPTT Coag (Bld) [Time] 28.0 s 24.1-36.2 [facility] CNOVon 12-22-2024 CNOV Office Visit (UCWSTR ) BLESSING JACKSON I ([id number]) 1940 F Date Time Provider Department 12/22/24 1:30 PM [facility] During your visit today, we recorded the [...] tablet by mouth daily at bedtime. Insulin [place], Disposable, (BD ULTRA-FINE MARCELO PEN NEEDLE) 32 [...] LOVENOX (ENOXAPARIN (more content not included)... Normal [facility] 12-11-2024 CNPN Telephone (INTMWS) BLESSING JACKSON I ([id number]) 1940 F Date Time Provider Department 12/11/24 [...] or Trulicity. This decision was from the [employer] Non-Preferred [facility] and GLP-1/GIP [facility] Pharmacy Coverage Policy at [facility]. Payer: Mauricio [phone] Notes Time User Attachment Attachment received from payer. 12/11/2024 4:02 PM Cchs, Rx Priorauth In Document Waiting for Payer Response 12/11/2024 12:19 PM Deadline to reply: December 26, 2024 Sending user: Michelle Meediros LPN Note to payer: Pt is 84 year old stable with current DM treatment. See office notes and A1c results. Payer: Mauricio [phone] Attachment: Document: ePA Attachment liraglutide (VICTOZA) 0.6 [...] or Trulicity. This decision was from the [employer] NonPreferred [employer]P-1 [facility]on[facility] and GLP-1/GIP [facility] Pharmacy Coverage Policy at [facility]. Elenita Ponce RN 12/12/2024 3:33 PM Signed [employer] calls with patient to notify of below. Let patient and sales representative trainee know that request is pending provider review. If provider would like to appeal for Victoza instead of changing to formulary prescription phone number is [phone]. BASIL Wray Chitra, MD 12/12/2024 6:23 PM Signed It is great that she is offered ozempic, would the patient like to try that? Would be easier for her Regards, Sheela Ford MD, [facility] 12/13/2024 9:50 AM Signed TC no answer. Left VM to return call. ZANE Dominguez Krystle, RN 12/13/2024 3:23 PM Signed Patient returns call [...] went over notes below from Greta Arreola AUTO BODY MECHANIC. Patient said she has 4 weeks of victoza at home. She wants to know what Greta thinks if she should finish it ? She is also asking if she should still be taking the Coricidin HBP soft gels with the Fluticasone nasal spray? Greta Arreola APRN.PAINT PREP TECHNICIAN 12/17/2024 9:15 AM Signed If she needs [...] the dose. Thank you Greta Arreola APRN.Mckayla Zhang RN 12/17/2024 4:37 PM Signed Called and left a voicemail for the Patient to call back and a (more content not included)... Normal [facility] CNOVon 10-11-2024 CNOV Office Visit (PODIWS ) BLESSING JACKSON I ([id number]) 1940 F Date Time Provider Department 10/11/24 [...] (or decreased sensation in your feet) a ship mate should always cut your toenails. Be Careful [...] if your (more content not included)... Normal [facility] MAMMO SCREENING WITH DAVION BI LATERALon [...] The current National Comprehensive Cancer Network and [employer] guidelines recommend women undergo a screening mammogram every year over the age of 40 and continue mammographic screening as long as they are in good health. Screening mammography under age 40 may occur for women who are at increased risk for breast cancer. [facility] Facility: [facility], [address] [place] [address] Table formatting from the original result was not included. MAMMO STANDARD RISK MQSA SITE BEGIN [place] [address] MQSA SITE END [facility] MG Breast - bilateral Screen ingon 09-10-2024 IMPRESSION: No mammographic evidence of malignancy. BI-RADS: 2: Benign Recommendation: Routine mammography. Recommendation Laterality: Bilateral The current National Comprehensive Cancer Network and [employer] guidelines recommend women undergo a screening mammogram every year over the age of 40 and continue mammographic screening as long as they are in good health. Screening mammography under age 40 may occur for women who are at increased risk for breast cancer. [facility] Facility: [facility], [address] [place] [address] OLOGY EXAM: MAMMO SCREENIN G WITH DAVION [...] The current National Comprehensive Cancer Network and [employer] guidelines recommend women undergo a screening mammogram every year over the age of 40 and continue mammographic screening as long as they are in good health. Screening mammography under age 40 may occur for women who are at increased risk for breast cancer. [facility] Facility: [facility], [address] [place] [address], [facility] Radiology Study observation (narrative) [facility] MG Breast - bilateral Screen ingOrdered By: Woo Govea on 09-10-2024 [facility] Work Phone: Gracia 09-08-2024 CNPN Telephone (INTMWS) BLESSING JACKSON I ([id number]) 1940 F Date Time Provider Department 09/08/24 [...] by mouth daily at bedtime. - Insulin [place], Disposable, (BD ULTRA-FINE MARCELO PEN NEEDLE) 32 [...] Status:Closed by Tomeka SANTIAGO on 09/10/24 Normal [facility] CBC panel Auto (Bld)on 09-06 Erythrocyte distribution width (RBC) [Ratio] 16.1 % High 11.5-15.0 [facility] Comment on above: Order Comment: Speci men Type: BLOOD SPECIMENOrdering Facility: [facility] Address: [address] [place] [address] Performed By: #### 5 8410-2 ####[facility] LABCLIA [id number] [facility] [id number] [address] [place] Hematocrit (Bld) [Volume fraction] 42.1 % Normal 36.0-46.0 [facility] Comment on above: Order Comment: Speci men Type: BLOOD SPECIMENOrdering Facility: [facility] Address: [address] [place] [address] Performed By: #### 5 8410-2 ####[facility] [id number] [place] [address] [place] Hemoglobin (Bld) [Mass/Vol] 12.9 g/dL Normal 11.5-15.5 [facility] Comment on above: Order Comment: Speci men Type: BLOOD SPECIMENOrdering Facility: [facility] Address: [address] [place] [address] Performed By: #### 5 8410-2 ####[facility] [id number] [place] [address] [place] MCH (RBC) [Entitic mass] 27.7 pg Normal 26.0-34.0 [facility] Comment on above: Order Comment: Speci men Type: BLOOD SPECIMENOrdering Facility: [facility] Address: [address] [place] [address] Performed By: #### 5 8410-2 ####[facility] [id number] [place] [address] [place] MCHC (RBC) [Mass/Vol] 30.6 g/dL Normal 30.5-36.0 [facility] Comment on above: Order Comment: Speci men Type: BLOOD SPECIMENOrdering Facility: [facility] Address: [address] [place] [address] Performed By: #### 5 8410-2 ####[facility] [id number] [place] [address] [place] MCV (RBC) [Entitic vol] 90.5 fL Normal 80.0-100.0 [facility] Comment on above: Order Comment: Speci men Type: BLOOD SPECIMENOrdering Facility: [facility] Address: [address] [place] [address] Performed By: #### 5 8410-2 ####[facility] LABCLIA [id number] [place] [address] [place] Nucleated RBC (Bld) [#/Vol] 10*3/uL Normal <0.01 [facility] Comment on above: Order Comment: Speci men Type: BLOOD SPECIMENOrdering Facility: [facility] Address: [address] [place] [address] Performed By: #### 5 8410-2 ####[facility] LABIA [id number] [place] [address] [place] Platelet mean volume (Bld) [Entitic vol] 11.2 fL Normal 9.0-12.7 [facility] Comment on above: Order Comment: Speci men Type: BLOOD SPECIMENOrdering Facility: [facility] Address: [address] [place] [address] Performed By: #### 5 8410-2 ####[facility] LABIA [id number] [place] [address] [place] Platelets (Bld) [#/Vol] 239 10*3/uL Normal 150-400 [facility] Comment on above: Order Comment: Speci men Type: BLOOD SPECIMENOrdering Facility: [facility] Address: [address] [place] [address] Performed By: #### 5 8410-2 ####[facility] LABCLIA [id number] [place] [address] [place] RBC (Bld) [#/Vol] 4.65 10*6/uL Normal 3.90-5.20 [facility] Comment on above: Order Comment: Speci men Type: BLOOD SPECIMENOrdering Facility: [facility] Address: [address] [place] [address] Performed By: #### 5 8410-2 ####[facility] LABCLIA [id number] [place] [address] [place] WBC (Bld) [#/Vol] 7.44 10*3/uL Normal 3.70-11.00 [facility] Comment on above: Order Comment: Speci men Type: BLOOD SPECIMENOrdering Facility: [facility] Address: [address] [place] [address] Performed By: #### 5 8410-2 ####[facility] LABCLIA [id number] [place] [address] [place] Comprehensive metabolic 2000 panelon 09-06-2024 Albumin [Mass/Vol] 3.9 g/dL Normal 3.9-4.9 [facility] Comment on above: Order Comment: Speci men Type: BLOOD SPECIMENOrdering Facility: [facility] Address: [address] [place] [address] Performed By: #### 2 4331-1, 3015-3, 41921-3 ####[facility] LABCLIA [id number] [place] [address] [place] ALP [Catalytic activity/Vol] 79 U/L Normal 34-123 [facility] Comment on above: Order Comment: Speci men Type: BLOOD SPECIMENOrdering Facility: [facility] Address: [address] [place] [address] Performed By: #### 2 4331-1, 301-3, 55410-6 ####[facility] LABCLIA [id number] [place] [address] [place] ALT [Catalytic activity/Vol] 17 U/L Normal 7-38 [facility] Comment on above: Order Comment: Speci men Type: BLOOD SPECIMENOrdering Facility: [facility] Address: [address] [place] [address] Performed By: #### 2 4331-1, 3016-3, 61542-7 ####[facility] LABCLIA [id number] [place] [id number] [place] Anion gap [Moles/Vol] 12 mmol/L Normal 8-15 [facility] Comment on above: Order Comment: Speci men Type: BLOOD SPECIMENOrdering Facility: [facility] Address: [address] [place] [address] Performed By: #### 2 4331-1, 3015-3, ####[facility] LABCLIA [id number] [place] [address] [place] AST [Catalytic activity/Vol] 23 U/L Normal 13-35 [facility] Comment on above: Order Comment: Speci men Type: BLOOD SPECIMENOrdering Facility: [facility] Address: [address] [place] [address] Performed By: #### 2 4331-1, 3015-3, ####[facility] LABCLIA [id number] [place] [address] [place] Bilirubin [Mass/Vol] 0.4 mg/dL Normal 0.2-1.3 [facility] Comment on above: Order Comment: Speci men Type: BLOOD SPECIMENOrdering Facility: [facility] Address: [address] [place] [address] Performed By: #### 2 4331-1, 3, ####[facility] LABCLIA [id number] [place] [address] [place] Calcium [Mass/Vol] 9.9 mg/dL Normal 8.5-10.2 [facility] Comment on above: Order Comment: Speci men Type: BLOOD SPECIMENOrdering Facility: [facility] Address: [address] [place] [address] Performed By: #### 2 4331-1, 3015-3, 01460-9 ####[facility] LABCLIA [id number] [place] [id number] [place] Chloride [Moles/Vol] 104 mmol/L Normal 98-107 [facility] Comment on above: Order Comment: Speci men Type: BLOOD SPECIMENOrdering Facility: [facility] Address: [address] [place] [address] Performed By: #### 2 4331-1, 3, ####[facility] LABCLIA [id number] [place] [address] [place] CO2 [Moles/Vol] 26 mmol/L Normal 22-30 [facility] Comment on above: Order Comment: Speci men Type: BLOOD SPECIMENOrdering Facility: [facility] Address: [address] [place] [address] Performed By: #### 2 4331-1, 3, ####[facility] LABCLIA [id number] [place] [address] [place] Creatinine [Mass/Vol] 1.09 mg/dL High 0.58-0.96 [facility] Comment on above: Order Comment: Speci men Type: BLOOD SPECIMENOrdering Facility: [facility] Address: [address] [place] [address] Performed By: #### 2 4331-1, 3016-01, ####[facility] LABCLIA [id number] [place] [address] [place] Creatinine and Glomerular filtration rate.predicted panel (S/P/Bld) 50 mL/min/1.73m??? Low >=60 [facility] Comment on above: Order Comment: Speci men Type: BLOOD SPECIMENOrdering Facility: [facility] Address: [address] [place] [address] Result Comment: Aura mated Glomerular Filtration Rate [...] actual GFR. Performed By: #### 2 4331-1, 3015-3, ####[facility] LABCLIA [id number] [place] [id number] [place] Glucose [Mass/Vol] 110 mg/dL High 74-99 [facility] Comment on above: Order Comment: Speci men Type: BLOOD SPECIMENOrdering Facility: [facility] Address: [address] [place] [address] Result Comment: The [place] Diabetes Association (ADA) provides guidance for cutoff [...] Standards of Medical Care in Diabetes 2016, [place] [employer] Association. Diabetes Care. 2016.39(Suppl 1). Performed By: #### 2 4331-1, 3016-01, ####[facility] LABCLIA [id number] [place] [address] [place] Potassium [Moles/Vol] 4.8 mmol/L Normal 3.7-5.1 [facility] Comment on above: Order Comment: Speci men Type: BLOOD SPECIMENOrdering Facility: [facility] Address: [address] [place] [address] Performed By: #### 2 4331-1, 3016-01, ####[facility] LABIA [id number] [place] [id number] [place] Protein [Mass/Vol] 7.5 g/dL Normal 6.3-8.0 [facility] Comment on above: Order Comment: Speci men Type: BLOOD SPECIMENOrdering Facility: [facility] Address: [address] [place], [place] [address] Performed By: #### 2 4331-1, 3015-3, 66841-1 ####[facility] LABCLIA [id number] [address] [address] [place] Sodium [Moles/Vol] 142 mmol/L Normal 136-144 [facility] Comment on above: Order Comment: Speci men Type: BLOOD SPECIMENOrdering Facility: [facility] Address: [address] [place] [address] Performed By: #### 2 4331-1, 3015-3, ####[facility] LABIA [id number] [place] [address] [place] Urea nitrogen [Mass/Vol] 45 mg/dL High 7-21 [facility] Comment on above: Order Comment: Speci men Type: BLOOD SPECIMENOrdering Facility: [facility] Address: [address] [place] [address] Performed By: #### 2 4331-1, 3, 11237-4 ####[facility] LABIA [id number] [place] [address] [place] HbA1c (Bld)on 09-06-2024 Average glucose Estimated from glycated hemoglobin (Bld) [Mass/Vol] 128 mg/dL Normal [facility] Comment on above: Order Comment: Speci men Type: BLOOD SPECIMENOrdering Facility: [facility] Address: [address] [place] [address] Result Comment: eAG: (Estimated average glucose) is a calculated value from HgbA1c and is sales representative trainee of the average blood glucose level in the last 2-3 month period. Performed By: #### 5 5454-3 ####[facility] LABCLIA [id number] [address] [address] [place] HbA1c (Bld) [Mass fraction] 6.1 % High 4.3-5.6 [facility] Comment on above: Order Comment: Faithi men Type: BLOOD SPECIMENOrdering Facility: [facility] Address: [address] [place] [address] Result Comment: [place] Diabetes Association guidelines indicate that patients with HgbA1c in the range 5.7-6.4% are at increased risk for development of diabetes, and intervention by lifestyle modification may be beneficial. HgbA1c greater or equal to 6.5% is considered diagnostic of diabetes. Performed By: #### 5 5454-3 ####[facility] LABCLIA [id number] [place] [address] [place] Lipid 1996 panelon 4 Cholesterol [Mass/Vol] 138 mg/dL Normal <200 [facility] Comment on above: Order Comment: My men Type: BLOOD SPECIMENOrdering Facility: [facility] Address: [address] [place] [address] Result Comment: <200 mg/dL, Desirable 200-239 mg/dL, Borderline high >239 mg/dL, High Performed By: #### 2 4331-1, 3016-3, 53023-0 ####[facility] LABCLIA [id number] [address] [place] Cholesterol in HDL [Mass/Vol] 68 mg/dL Normal >39 [facility] Comment on above: Order Comment: Faithi men Type: BLOOD SPECIMENOrdering Facility: [facility] Address: [address] [place] [address] Result Comment: 40-5 9 mg/dL, Acceptable >59 mg/dL, High: Negative risk factor for coronary heart disease <40 mg/dL, Low: Positive risk factor for coronary heart disease Performed By: #### 2 4331-1, 3016-3, 39066-4 ####[facility] LABCLIA [id number] [place] [id number] [place] Cholesterol in LDL [Mass/Vol] 50 mg/dL Normal <100 [facility] Comment on above: Order Comment: Faithi men Type: BLOOD SPECIMENOrdering Facility: [facility] Address: [address] [place] [address] Result Comment: <100 mg/dL, Optimal 100-129 mg/dL, Near optimal/above optimal 130-159 mg/dL, Borderline high 160-189 mg/dL, High >189 mg/dL, Very high Secondary prevention optimal LDL Cholesterol levels are recommended to be < 70 mg/dL Performed By: #### 2 4331-1, 3015-3, ####[facility] LABCLIA [id number] [address] [address] [place] Cholesterol in LDL/Cholesterol in HDL [Mass ratio] 0.74 {ratio} Normal <2.54 [facility] Comment on above: Order Comment: Speci men Type: BLOOD SPECIMENOrdering Facility: [facility] Address: [address] [place] [address] Result Comment: Refe rence: 1. National Cholesterol Education Program ATP III Guideline At-A-Glance Quick Desk Reference: National Heart, Lung, and Blood [place]. National Institutes of Health. 2001: NIH Publication No. 01-3305. 2. An International Atherosclerosis Society position paper: global recommendations for the management of dyslipidemia: executive summary, Atherosclerosis. 2014: 232(2):410-413. Performed By: #### 2 4331-1, 3, ####[facility] LABCLIA [id number] [place] [address] [place] Cholesterol in VLDL [Mass/Vol] 20 mg/dL Normal <30 [facility] Comment on above: Order Comment: Speci men Type: BLOOD SPECIMENOrdering Facility: [facility] Address: [address] [place] [address] Performed By: #### 2 4331-1, 3015-3, ####[facility] LABCLIA [id number] [facility] [address] [address] [place] Cholesterol non HDL [Mass/Vol] 70 mg/dL Normal <130 [facility] Comment on above: Order Comment: Speci men Type: BLOOD SPECIMENOrdering Facility: [facility] Address: [address] [place] [address] Result Comment: <130 mg/dL, Optimal 130-159 mg/dL, Near optimal/above optimal 160-189 mg/dL, Borderline high 190-219 mg/dL, High >219 mg/dL, Very high Secondary prevention optimal non HDL Cholesterol levels are recommended to be <100 mg/dL Performed By: #### 2 4331-1, 3015-3, 19100-9 ####[facility] LABCLIA [id number] [place] [address] [place] Cholesterol.total/Chol esterol in HDL [Mass ratio] 2.03 {ratio} Normal <5.10 [facility] Comment on above: Order Comment: Speci men Type: BLOOD SPECIMENOrdering Facility: [facility] Address: [address] [place] [address] Performed By: #### 2 4331-1, 3015-3, ####[facility] LABIA [id number] [place] [address] [place] FASTING TIME 12 hrs Normal [facility] Comment on above: Order Comment: Speci men Type: BLOOD SPECIMENOrdering Facility: [facility] Address: [address] [place] [address] Performed By: #### 2 4331-1, 3015-3, ####[facility] LABIA [id number] [place] [id number] [place] Triglyceride [Mass/Vol] 98 mg/dL Normal <150 [facility] Comment on above: Order Comment: Speci men Type: BLOOD SPECIMENOrdering Facility: [facility] Address: [address] [place] [address] Result Comment: <150 mg/dL, Normal 150-199 mg/dL, Borderline high 200-499 mg/dL, High >499 mg/dL, Very high Performed By: #### 2 4331-1, 3015-3, 17349-1 ####[facility] LABCLIA [id number] [place] [id number] [place] TSH SerPl-aCncon 09-06-2024 TSH Qn 3.230 m[IU]/L Normal 0.270-4.20 0 [facility] Comment on above: Order Comment: Speci men Type: BLOOD SPECIMENOrdering Facility: [facility] Address: [address] [place] [address] Performed By: #### 2 4331-1, 3016-3, 83023-1 ####[facility] LABCLIA [id number] [address] [place] CNOVon 08-30-2024 CNOV Office Visit (INTMWS ) BLESSING JACKSON I ([id number]) 1940 F Date Time Provider Department 08/30/24 3:00 PM JEANA GUERRA INTMWS During your visit today, we recorded the following information about you: Pulse Blood pressure Weight Height 50/minute 158/72 87.2 kg 1.549 m Jeana Guerra MD 08/30/2024 5:22 PM Signed Reason for Visit Patient presents with: F/U 6 months: Bilateral legs wounds, seen in [place], better now, usually sees Dr Carlos Shaw for skin. Blessing I Manuel is a 82 year old female who [...] and unspecified hyperlipidemia PVD (peripheral vascular disease) ([facility]) Special screening for malignant neoplasms, colon 12/12/2014 [...] sentinel node biopsy - Dr. Reynolds - U PAST SURGICAL HISTORY OF Right 02/20/2013 Right [facility] N/CARPAL TUNNEL SURG Right [facility]? FAMILY HISTORY Problem Relation Age of Onset [...] lisinopril (Z (more content not included)... 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 Chondrocalcinosis. Food Service Lead: [facility] Transcribe Date/Time: Dec 07 2023 2:43P Dictated by : INÉS LEY MD This examination was interpreted and the report reviewed and electronically signed by: INÉS LEY MD on Dec 07 2023 2:45PM [facility] DIVISION OF RADIOLOGY * * *Final Report* [...] fracture or dislocation. DIVISION OF RADIOLOGY Provider, [facility] - 12/07/2023 * * *Final Report* * [...] severely involving the first CMC joint. Chondrocalcinosis. Food Service Lead: PSCB Transcribe Date/Time: Dec 07 2023 2:43P Dictated by : INÉS LEY MD This examination was interpreted and the report reviewed and electronically signed by: INÉS LEY MD on Dec 07 2023 2:45PM EST [facility] Radiology Study observation (narrative) [facility] XR Hand - left PA and Latera l and ObliqueOrdered By: Ccf Provider on 12-07-2023 [facility] Breast - bilateral Screen ingon 09-05-2023 IMPRESSION: No mammographic evidence of malignancy. BI-RADS: 2: Benign Recommendation: Routine mammography. Recommendation Laterality: Bilateral The current National Comprehensive Cancer Network and [place] [employer] guidelines recommend women undergo [...] The current National Comprehensive Cancer Network and [place] [employer] guidelines recommend women undergo a screening mammogram every year over the age of 40 and continue mammographic screening as long as they are in good health. Screening mammography under age 40 may occur for women who are at increased risk for breast cancer. I personally viewed and interpreted these images and I have reviewed and approved this report. [facility] Radiology Study observation (narrative) [facility] MG Breast - bilateral Screen ingOrdered By: Gian Guo on 09-05-2023 [facility] Work Phone: Basophil percentageon 2021 Creatinine [Mass/Vol] 1.0 mg/dL 0.55-1.02 [facility] Work Phone: Laboratory - Chemistry and C hemistry - challengeon 09-03-2022 GFR/1.73 sq M.predicted among non-blacks MDRD (S/P/Bld) [Vol rate/Area] 58.0000 mL/min/{1.73_m2} >60 [facility] Work Phone: MG Breast - bilateral Screen ingon 08-30-2022 IMPRESSION: No mammographic evidence of malignancy. BI-RADS: 2: Benign Recommendation: Routine mammography. Recommendation Laterality: Bilateral The current National Comprehensive Cancer Network and [employer] guidelines recommend women undergo [...] The current National Comprehensive Cancer Network and [employer] guidelines recommend women undergo a screening mammogram every year over the age of 40 and continue mammographic screening as long as they are in good health. Screening mammography under age 40 may occur for women who are at increased risk for breast cancer. [facility] Radiology Study observation (narrative) [facility] MG Breast - bilateral Screen ingOrdered By: Gabi Martin on 08-30-2022 [facility] Work Phone: Vital Signs Date Time Vital Sign Value Performing Clinician Facility 04-16-2025 14:09-0400 Body temperature 97.8 [degF] Dr. Jeana Guerra MD Work Phone: [facility] 04-16-2025 14:09-0400 Diastolic blood pressure 78 mm[Hg] Dr. Jeana Guerra MD Work Phone: 4(929)074-761572 [place] [address] 04-16-2025 14:09-0400 Heart rate 118 /min Dr. Jeana Guerra MD Work Phone: 4(943)611-106372 [place] [address] 04-16-2025 14:09-0400 Respiratory rate 20 /min Dr. Jeana Guerra MD Work Phone: 4(015)177-189572 [place] [address] 04-16-2025 14:09-0400 SaO2% (BldA) [Mass fraction] 94 % Dr. Jeana Guerra MD Work Phone: 0(248)915-569072 [place] [address] 04-16-2025 14:09-0400 Systolic blood pressure 108 mm[Hg] Dr. Jeana Guerra MD Work Phone: 1(681)596-572472 [place] [address] 04-16-2025 13:04-0400 Inhaled oxygen flow rate 2 L/min Dr. Jeana Guerra MD Work Phone: 0(081)380-621072 [place] [address] 04-16-2025 11:28-0400 Body mass index (BMI) [Ratio] 38.8 kg/m2 Dr. Jeana Guerra MD Work Phone: 1(656)889-000872 [place] [address] 04-16-2025 11:28-0400 Body weight 93.[address] Jeana Guerra MD Work Phone: 3(235)618-495672 [place] [address] 04-16-2025 11:12-0400 Body height 154.[address] Jeana Guerra MD Work Phone: 4(831)476-875272 [place] [address] 03-04-2025 09:49-0400 Body mass index (BMI) [Ratio] 35.98 kg/m2 Jeana Guerra MD Work Phone: 8(407)754-705463 [place] [address] 03-04-2025 09:49-0400 Body weight 86.36 kg Jeana Guerra MD Work Phone: 2(506)806-445375 [place] [address] 03-04-2025 09:49-0400 Diastolic blood pressure 87 mm[Hg] Jeana Guerra MD Work Phone: 5(329)800-856263 [place] [address] 03-04-2025 09:49-0400 Heart rate 92 /min Jeana Guerra MD Work Phone: [facility] 03-04-2025 09:49-0400 Respiratory rate 16 /min Jeana Guerra MD Work Phone: [facility] 03-04-2025 09:49-0400 Systolic blood pressure 135 mm[Hg] Jeana Guerra MD Work Phone: 2(367)913-943463 [place] [address] 01-23-2025 08:48-0500 Body height 154.[address] Jeana Guerra MD Work Phone: 2(856)613-794197 [place] [address] 01-23-2025 08:48-0500 Body mass index (BMI) [Ratio] 36.6 kg/m2 Dr. Jeana Guerra MD Work Phone: 2(237)242-500972 [place] [address] 01-23-2025 08:48-0500 Body weight 87.[address] Jeana Guerra MD Work Phone: 1(488)686-642397 [place] [address] 01-23-2025 08:48-0500 Diastolic blood pressure 83 mm[Hg] Dr. Jeana Guerra MD Work Phone: 8(835)599-029772 [place] [address] 01-23-2025 08:48-0500 Heart rate 95 /min Dr. Jeana Guerra MD Work Phone: 7(921)305-078072 [place] [address] 01-23-2025 08:48-0500 Respiratory rate 18 /min Dr. Jeana Guerra MD Work Phone: 9(339)551-375797 [place] [address] 01-23-2025 08:48-0500 SaO2% (BldA) [Mass fraction] 94 % Dr. Jeana Guerra MD Work Phone: 2(298)725-017272 [place] [address] 01-23-2025 08:48-0500 Systolic blood pressure 134 mm[Hg] Dr. Jeana Guerra MD Work Phone: 2(080)347-143472 [place] [address] 01-22-2025 15:05-0500 Body height 154.9 cm Jeana Guerra MD Work Phone: 2(443)607-440763 [place] [address] 01-22-2025 15:05-0500 Body mass index (BMI) [Ratio] 36.92 kg/m2 Jeana Guerra MD Work Phone: [facility] 01-22-2025 15:05-0500 Body weight 88.63 kg Jeana Guerra MD Work Phone: [facility] 01-22-2025 15:05-0500 Diastolic blood pressure 68 mm[Hg] Jeana Guerra MD Work Phone: [facility] 01-22-2025 15:05-0500 Heart rate 80 /min Jeana Guerra MD Work Phone: [facility] 01-22-2025 15:05-0500 SaO2% (BldA) [Mass fraction] 98 % Jeana Guerra MD Work Phone: [facility] 01-22-2025 15:05-0500 Systolic blood pressure 106 mm[Hg] Jeana Guerra MD Work Phone: 6(569)248-067163 [place] [address] 01-11-2025 09:22-0500 Heart rate 111 /min Dr. Jeana Guerra MD Work Phone: 2(526)943-721597 [place] [address] 01-11-2025 08:45-0500 Diastolic blood pressure 47 mm[Hg] Dr. Jeana Guerra MD Work Phone: 5(065)400-791597 [place] [address] 01-11-2025 08:45-0500 Respiratory rate 15 /min Dr. Jeana Guerra MD Work Phone: 3(928)144-092972 [place] [address] 01-11-2025 08:45-0500 SaO2% (BldA) [Mass fraction] 96 % Dr. Jeana Guerra MD Work Phone: 3(650)211-525572 [place] [address] 01-11-2025 08:45-0500 Systolic blood pressure 107 mm[Hg] Dr. Jeana Guerra MD Work Phone: 3(563)285-812572 [place] [address] 01-11-2025 05:15-0500 Body temperature 97.5 [degF] Dr. Jeana Guerra MD Work Phone: 0(352)132-602172 [place] [address] 01-11-2025 00:26-0500 Body mass index (BMI) [Ratio] 39.2 kg/m2 Dr. Jeana Guerra MD Work Phone: [facility] 01-11-2025 00:26-0500 Body weight 94.[address] Jeana Guerra MD Work Phone: [facility] 01-10-2025 12:20-0500 Inhaled oxygen flow rate 2 L/min Dr. Jeana Guerra MD Work Phone: [facility] 01-08-2025 08:59-0500 Diastolic blood pressure 68 mm[Hg] Jeana Guerra MD Work Phone: [facility] 01-08-2025 08:59-0500 Systolic blood pressure 104 mm[Hg] Jeana Guerra MD Work Phone: [facility] 01-08-2025 08:54-0500 Body mass index (BMI) [Ratio] 41.76 kg/m2 Jeana Guerra MD Work Phone: [facility] 01-08-2025 08:54-0500 Body temperature 98.1 [degF] Jeana Guerra MD Work Phone: [facility] 01-08-2025 08:54-0500 Body weight 100.25 kg Jeana Guerra MD Work Phone: [facility] 01-08-2025 08:54-0500 Heart rate 114 /min Jeana Guerra MD Work Phone: [facility] 12-22-2024 13:32-0500 Body mass index (BMI) [Ratio] 40.16 kg/m2 Mac Cespedes MD Work Phone: [facility] 12-22-2024 13:32-0500 Body temperature 97.59 [degF] Mac Cespedes MD Work Phone: [facility] 12-22-2024 13:32-0500 Body weight 96.4 kg Mac Cespedes MD Work Phone: [facility] 12-22-2024 13:32-0500 Diastolic blood pressure 91 mm[Hg] Mac Cespedes MD Work Phone: [facility] 12-22-2024 13:32-0500 Heart rate 96 /min Mac Cespedes MD Work Phone: [facility] 12-22-2024 13:32-0500 Respiratory rate 20 /min Mac Cespedes MD Work Phone: [facility] 12-22-2024 13:32-0500 SaO2% (BldA) [Mass fraction] 97 % Mac Cespedes MD Work Phone: [facility] 12-22-2024 13:32-0500 Systolic blood pressure 142 mm[Hg] Mac Cespedes MD Work Phone: [facility] 09-10-2024 13:56-0400 Body height 154.9 cm Adrian Jeong MULTIMEDIA AUTHOR-PAINT PREP TECHNICIAN Work Phone: [facility] 09-10-2024 13:56-0400 Body mass index (BMI) [Ratio] 36.47 kg/m2 Adrian Jeong MULTIMEDIA AUTHOR-PAINT PREP TECHNICIAN Work Phone: 6(161)525-169899 [address] 09-10-2024 13:56-0400 Body weight 87.54 kg Adrian Jeong MULTIMEDIA AUTHOR-PAINT PREP TECHNICIAN Work Phone: 3(829)049-582099 [address] 09-10-2024 13:56-0400 Diastolic blood pressure 62 mm[Hg] Adrian Jeong MULTIMEDIA AUTHOR-PAINT PREP TECHNICIAN Work Phone: 5(980)257-350963 [place] [address] 09-10-2024 13:56-0400 Heart rate 84 /min Adrian Jeong MULTIMEDIA AUTHOR-PAINT PREP TECHNICIAN Work Phone: [facility] 09-10-2024 13:56-0400 SaO2% (BldA) [Mass fraction] 97 % Adrian Jeong MULTIMEDIA AUTHOR-PAINT PREP TECHNICIAN Work Phone: [facility] 09-10-2024 13:56-0400 Systolic blood pressure 155 mm[Hg] Adrian Jeong MULTIMEDIA AUTHOR-PAINT PREP TECHNICIAN Work Phone: [facility] 09-10-2024 12:12-0400 Diastolic blood pressure 71 mm[Hg] Amy Lauri MULTIMEDIA AUTHOR-PAINT PREP TECHNICIAN Work Phone: [facility] 09-10-2024 12:12-0400 Systolic blood pressure 166 mm[Hg] Amy Lauri MULTIMEDIA AUTHOR-PAINT PREP TECHNICIAN Work Phone: [facility] 09-10-2024 12:02-0400 Body height 154.9 cm Amy Lauri MULTIMEDIA AUTHOR-PAINT PREP TECHNICIAN Work Phone: [facility] 09-10-2024 12:02-0400 Body mass index (BMI) [Ratio] 36.54 kg/m2 Amy Lauri MULTIMEDIA AUTHOR-PAINT PREP TECHNICIAN Work Phone: [facility] 09-10-2024 12:02-0400 Body temperature 97.3 [degF] Amy Lauri MULTIMEDIA AUTHOR-PAINT PREP TECHNICIAN Work Phone: [facility] 09-10-2024 12:02-0400 Body weight 87.73 kg Amy Lauri MULTIMEDIA AUTHOR-PAINT PREP TECHNICIAN Work Phone: [facility] 09-10-2024 12:02-0400 Heart rate 65 /min Amy Carreon MULTIMEDIA AUTHOR-PAINT PREP TECHNICIAN Work Phone: [facility] 09-10-2024 12:02-0400 Respiratory rate 18 /min Amy Lauri MULTIMEDIA AUTHOR-PAINT PREP TECHNICIAN Work Phone: [facility] 09-10-2024 12:02-0400 SaO2% (BldA) [Mass fraction] 96 % Amy Carreon MULTIMEDIA AUTHOR-PAINT PREP TECHNICIAN Work Phone: [facility] 08-30-2024 15:03-0400 Body height 154.9 cm Jeana Guerra MD Work Phone: [facility] 08-30-2024 15:03-0400 Body mass index (BMI) [Ratio] 36.32 kg/m2 Jeana Guerra MD Work Phone: [facility] 08-30-2024 15:03-0400 Body weight 87.18 kg Jeana Guerra MD Work Phone: [facility] 08-30-2024 15:03-0400 Diastolic blood pressure 72 mm[Hg] Jeana Guerra MD Work Phone: [facility] 08-30-2024 15:03-0400 Heart rate 50 /min Jeana Guerra MD Work Phone: [facility] 08-30-2024 15:03-0400 SaO2% (BldA) [Mass fraction] 99 % Jeana Guerra MD Work Phone: [facility] 08-30-2024 15:03-0400 Systolic blood pressure 158 mm[Hg] Jeana Guerra MD Work Phone: [facility] 04-12-2024 08:17-0400 Body mass index (BMI) [Ratio] 36.66 kg/m2 Greta Older MULTIMEDIA AUTHOR.PAINT PREP TECHNICIAN Work Phone: [facility] 04-12-2024 08:17-0400 Body weight 88 kg Greta Older MULTIMEDIA AUTHOR.PAINT PREP TECHNICIAN Work Phone: [facility] 04-12-2024 08:17-0400 Diastolic blood pressure 66 mm[Hg] Greta Older MULTIMEDIA AUTHOR.PAINT PREP TECHNICIAN Work Phone: [facility] 04-12-2024 08:17-0400 Heart rate 60 /min Greta Older MULTIMEDIA AUTHOR.PAINT PREP TECHNICIAN Work Phone: [facility] 04-12-2024 08:17-0400 Respiratory rate 16 /min Greta Older MULTIMEDIA AUTHOR.PAINT PREP TECHNICIAN Work Phone: [facility] 04-12-2024 08:17-0400 SaO2% (BldA) [Mass fraction] 98 % Greta Older MULTIMEDIA AUTHOR.PAINT PREP TECHNICIAN Work Phone: [facility] 04-12-2024 08:17-0400 Systolic blood pressure 134 mm[Hg] Greta Older MULTIMEDIA AUTHOR.PAINT PREP TECHNICIAN Work Phone: [facility] 03-29-2024 11:31-0400 Diastolic blood pressure 77 mm[Hg] Greta Older MULTIMEDIA AUTHOR.PAINT PREP TECHNICIAN Work Phone: [facility] Comment on above: BP JEFFERY AVERAGE 03-29-2024 11:31-0400 Heart rate 58 /min Greta Older MULTIMEDIA AUTHOR.PAINT PREP TECHNICIAN Work Phone: [facility] 03-29-2024 11:31-0400 Systolic blood pressure 168 mm[Hg] Greta Older MULTIMEDIA AUTHOR.PAINT PREP TECHNICIAN Work Phone: [facility] Comment on above: BP JEFFERY AVERAGE 03-29-2024 10:53-0400 Body mass index (BMI) [Ratio] 36.49 kg/m2 Greta Older MULTIMEDIA AUTHOR.PAINT PREP TECHNICIAN Work Phone: [facility] 03-29-2024 10:53-0400 Body weight 87.6 kg Greta Older MULTIMEDIA AUTHOR.PAINT PREP TECHNICIAN Work Phone: [facility] 03-29-2024 10:53-0400 Respiratory rate 16 /min Greta Older MULTIMEDIA AUTHOR.PAINT PREP TECHNICIAN Work Phone: [facility] 03-29-2024 10:53-0400 SaO2% (BldA) [Mass fraction] 98 % Greta Older MULTIMEDIA AUTHOR.PAINT PREP TECHNICIAN Work Phone: [facility] 01-27-2024 13:32-0500 Body height 154.9 cm Pacc 1 Work Phone: [facility] 01-27-2024 13:32-0500 Body weight 84.64 kg Pacc 1 Work Phone: [facility] 01-27-2024 13:32-0500 Diastolic blood pressure 66 mm[Hg] Pacc 1 Work Phone: [facility] 01-27-2024 13:32-0500 Heart rate 60 /min Pacc 1 Work Phone: [facility] 01-27-2024 13:32-0500 Respiratory rate 18 /min Pacc 1 Work Phone: [facility] 01-27-2024 13:32-0500 SaO2% (BldA) [Mass fraction] 97 % Pac 1 Work Phone: [facility] 01-27-2024 13:32-0500 Systolic blood pressure 124 mm[Hg] Pac 1 Work Phone: [facility] 09-29-2023 10:48-0500 Diastolic blood pressure 59 mm[Hg] Greta Older MULTIMEDIA AUTHOR.PAINT PREP TECHNICIAN Work Phone: [facility] 09-29-2023 10:48-0500 Heart rate 49 /min Greta Older MULTIMEDIA AUTHOR.PAINT PREP TECHNICIAN Work Phone: [facility] 09-29-2023 10:48-0500 Systolic blood pressure 129 mm[Hg] Greta Older MULTIMEDIA AUTHOR.PAINT PREP TECHNICIAN Work Phone: [facility] 09-29-2023 10:12-0500 Body weight 88.91 kg Greta Older MULTIMEDIA AUTHOR.PAINT PREP TECHNICIAN Work Phone: [facility] 09-29-2023 10:12-0500 Respiratory rate 16 /min Greta Older MULTIMEDIA AUTHOR.PAINT PREP TECHNICIAN Work Phone: [facility] 09-29-2023 10:12-0500 SaO2% (BldA) [Mass fraction] 98 % Greta Older MULTIMEDIA AUTHOR.PAINT PREP TECHNICIAN Work Phone: [facility] 09-05-2023 14:44-0400 Body height 154.9 cm Adrian Jeong MULTIMEDIA AUTHOR-PAINT PREP TECHNICIAN Work Phone: [facility] 09-05-2023 14:44-0400 Body mass index (BMI) [Ratio] 37.22 kg/m2 Adrian Jeong MULTIMEDIA AUTHOR-PAINT PREP TECHNICIAN Work Phone: [facility] 09-05-2023 14:44-0400 Body weight 89.36 kg Adrian Jeong MULTIMEDIA AUTHOR-PAINT PREP TECHNICIAN Work Phone: [facility] 09-05-2023 14:44-0400 Diastolic blood pressure 60 mm[Hg] Adrian Jeong MULTIMEDIA AUTHOR-PAINT PREP TECHNICIAN Work Phone: [facility] 09-05-2023 14:44-0400 Heart rate 68 /min Adrian Jeong MULTIMEDIA AUTHOR-PAINT PREP TECHNICIAN Work Phone: [facility] 09-05-2023 14:44-0400 Systolic blood pressure 140 mm[Hg] Adrian Howells MULTIMEDIA AUTHOR-PAINT PREP TECHNICIAN Work Phone: [facility] 01-24-2023 11:02-0500 Body height 154.9 cm Aubrey Kelley DO Work Phone: [facility] 01-24-2023 11:02-0500 Body mass index (BMI) [Ratio] 36.6 kg/m2 Aubrey [place] DO Work Phone: [facility] 01-24-2023 11:02-0500 Body weight 87.86 kg Aubrey [place] DO Work Phone: [facility] 01-24-2023 11:02-0500 Diastolic blood pressure 72 mm[Hg] Aubrey [place] DO Work Phone: [facility] 01-24-2023 11:02-0500 Heart rate 78 /min Aubrey [place] DO Work Phone: [facility] 01-24-2023 11:02-0500 SaO2% (BldA) [Mass fraction] 98 % Aubrey [place] DO Work Phone: [facility] 01-24-2023 11:02-0500 Systolic blood pressure 148 mm[Hg] Aubrey [place] DO Work Phone: [facility] 10-28-2022 12:18-0500 Diastolic blood pressure 65 mm[Hg] Jeana Guerra MD Work Phone: [facility] 10-28-2022 12:18-0500 Systolic blood pressure 128 mm[Hg] Jeana Guerra MD Work Phone: [facility] 10-28-2022 12:08-0500 Body weight 91.17 kg Jeana Guerra MD Work Phone: [facility] 10-28-2022 12:08-0500 Heart rate 61 /min Jeana Guerra MD Work Phone: [facility] 10-28-2022 12:08-0500 Respiratory rate 16 /min Jeana Guerra MD Work Phone: [facility] 10-28-2022 12:08-0500 SaO2% (BldA) [Mass fraction] 98 % Jeana Guerra MD Work Phone: [facility] 08-31-2022 09:20-0400 Body height 154.94 cm [facility] Work Phone: 08-31-2022 09:20-0400 Body mass index (BMI) [Ratio] 39.6 kg/m2 [facility] Work Phone: 08-31-2022 09:20-0400 Body temperature 97.8 [degF] [facility] Work Phone: 08-31-2022 09:20-0400 Body weight 95.25 kg [facility] Work Phone: 08-31-2022 09:20-0400 Diastolic blood pressure 69 mm[Hg] [facility] Work Phone: 08-31-2022 09:20-0400 Heart rate 51 /min [facility] Work Phone: 08-31-2022 09:20-0400 Systolic blood pressure 142 mm[Hg] [facility] Work Phone: 04-06-2022 13:27-0400 Diastolic blood pressure 74 mm[Hg] Mi Nurse Work Phone: [facility] 04-06-2022 13:27-0400 Heart rate 68 /min Mi Nurse Work Phone: [facility] 04-06-2022 13:27-0400 Systolic blood pressure 126 mm[Hg] Mi Nurse Work Phone: [facility] 03-22-2022 10:45-0400 Diastolic blood pressure 80 mm[Hg] Jeana Guerra MD Work Phone: [facility] 03-22-2022 10:45-0400 Systolic blood pressure 146 mm[Hg] Jeana Guerra MD Work Phone: [facility] 03-22-2022 09:51-0400 Body height 157.5 cm Jeana Guerra MD Work Phone: [facility] 03-22-2022 09:51-0400 Body temperature 98.2 [degF] Jeana Guerra MD Work Phone: [facility] 03-22-2022 09:51-0400 Body weight 95.25 kg Jeana Guerra MD Work Phone: [facility] 03-22-2022 09:51-0400 Heart rate 76 /min Jeana Guerra MD Work Phone: [facility] 03-22-2022 09:51-0400 Respiratory rate 14 /min Jeana Guerra MD Work Phone: [facility] 03-22-2022 09:51-0400 SaO2% (BldA) [Mass fraction] 98 % Jeana Guerra MD Work Phone: [facility] Encounters Encounter Date Encounter Type Care Provider Facility Start: 04-18-2025 End: 04-22-2025 Telephone encounter Jeana Guerra MD Work Phone: [facility] Comment on above: Patient Update Start: 04-16-[address] [facility] Facility:[facility] Start: 04-16-[address] [facility] Start: 04-16-2025 Evaluation and management of inpatient Dr. Ras Blas DO -Progressive Care Unit Work Phone: Start: 03-04-2025 End: 03-04-2025 Office outpatient visit 25 minutes Jeana Guerra MD Work Phone: [facility] Comment on above: Type 2 diabetes cecilio [...] Jeana Guerra MD Work Phone: [facility] [place] Comment on above: Refill Request Start: 03-01-2025 End: 03-01-2025 ambulatory MIRANDA DE Facility:[facility] Start: 03-01-2025 End: 03-01-2025 Patient encounter procedure Miranda De Work Phone: Podiatry Comment on above: Onychomycosis (Prima ry Dx); Pain in toe of right foot; Pain in toe of left foot; Type 2 diabetes mellitus with peripheral neuropathy (HCC) Start: 02-27-2025 End: 02-27-2025 ambulatory JEANA GUERRA Facility:[facility] Start: 02-21-2025 End: 02-21-2025 Refill Jeana Guerra MD Work Phone: [facility] Comment on above: Refill Request Start: 01-31-2025 End: 01-31-[address] Jeana Guerra MD Work Phone: [facility] Work Phone: Start: 01-31-2025 End: 01-31-2025 Patient encounter procedure Magdi CEDEÑO -Radiology, [facility] Work Phone: Start: 01-31-2025 End: 01-31-2025 ambulatory Magdi Thomas Facility:[facility] Start: 01-23-2025 End: 01-23-[address] Jeana Guerra MD Work Phone: [facility] Work Phone: Start: 01-23-2025 End: 01-23-2025 Patient encounter procedure Magdi Thomas PA -Laboratory Work Phone: Start: 01-23-2025 End: 01-23-2025 Patient encounter procedure Magdi Thomas [place] -[facility] Work Phone: Start: 01-23-2025 End: 01-23-2025 ambulatory Magdi Thomas Facility:[facility] Start: 01-22-2025 End: 01-23-2025 ambulatory Jeana Guerra Facility:[facility] Start: 01-22-2025 End: 01-22-2025 Office outpatient visit 25 minutes Jeana Guerra MD Work Phone: [facility] [place] Comment on above: Hospital discharge f ollow-up (Primary Dx); Atrial fibrillation, unspecified type (HCC); Acute on chronic 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 Supa Brumfield MD -[facility] Work Phone: Start: 01-10-2025 End: 01-10-2025 ambulatory Brigitte Abel RN Work Phone: [employer] Comment on above: ACM MARY RN ( ED utilization review per request of payor/) Start: 01-10-2025 Non-patient / Non-visit Dr. Gerald sullivan MD -[facility] Start: 01-09-2025 Non-patient / Non-visit Betsy ALVARADO -[facility] Start: 01-09-2025 Non-patient / Non-visit Dr. Gerald sullivan MD -[facility] Start: 01-09-2025 Non-patient / Non-visit Dr. Supa Brumfield MD -[facility] Work Phone: Start: 01-08-2025 End: 01-11-2025 Evaluation and management of inpatient Dr. Supa Brumfield MD -Intensive Care Unit Work Phone: Start: 01-08-2025 End: 01-08-2025 ambulatory Supa Brumfield Facility:[facility] Start: 01-08-2025 End: 01-08-2025 Office outpatient visit 40 minutes Jeana Guerra MD Work Phone: [facility] [place] Comment on above: Vasomotor rhinitis ( Primary Dx); Post-nasal drip; Obesity, Class III, BMI >= 40; Stage 3a chronic kidney disease (HCC); Type 2 diabetes mellitus with peripheral neuropathy (HCC); Weight gain; Malaise; Increased abdominal girth; Cardiac arrhythmia, unspecified cardiac arrhythmia type; Edema due to malnutrition, due to unspecified malnutrition type (HCC); Palpitations; Dyspnea, unspecified type Start: 12-22-2024 End: 12-22-2024 ambulatory JEANA GUERRA Facility:[facility] Start: 12-22-2024 End: 12-22-2024 Office outpatient visit 25 minutes Mac Cespedes MD Work Phone: [facility] Comment on above: Acute non-recurrent sinusitis, unspecified location (Primary Dx) Start: 12-11-2024 End: 12-17-2024 Telephone encounter Jeana Guerra MD Work Phone: [facility] [place] Comment on above: Insurance Authorizat ion Start: 10-11-2024 End: 10-11-2024 ambulatory MIRANDA TESTKATHARINA Facility:[facility] Start: 10-11-2024 End: 10-11-2024 Patient encounter procedure Miranda De Work Phone: Podiatry Comment on above: Onychomycosis (Prima ry Dx); Pain in toe of right foot; Pain in toe of left foot; Type 2 diabetes mellitus with peripheral neuropathy (HCC); Venous insufficiency; Callus of foot Start: 10-05-2024 End: 10-05-2024 Refill Jeana Guerra MD Work Phone: [facility] [place] Comment on above: Refill Request Start: 09-25-2024 End: 09-25-2024 [facility] [place] Start: 09-25-2024 End: 09-25-2024 [facility]: Population Health Na vigation Outreach (Mauricio lema) Start: 09-17-2024 End: 09-17-2024 Telephone encounter Betsy Abad RN [facility] Comment on above: Paperwork Start: 09-10-2024 End: 09-10-2024 Office outpatient visit 25 minutes Adrian Jeong MULTIMEDIA AUTHOR-PAINT PREP TECHNICIAN Work Phone: [facility] Comment on above: Leg swelling (Primar y Dx); Lipodermatosclerosis of both lower extremities; Lymphedema; Chronic venous insufficiency Start: 09-10-2024 ambulatory JEANA GUERRA Facility :[facility] Start: 09-10-2024 End: 09-10-2024 Office outpatient visit 10 minutes Amy Carreon APRN-PAINT PREP TECHNICIAN Work Phone: Division of Surgical Oncology Comment on above: Ductal carcinoma in situ (DCIS) of right breast (Primary Dx); Encounter for screening mammogram for malignant neoplasm of breast Start: 09-10-2024 ambulatory JEANA GROVER Facility :[facility] Start: 09-10-2024 End: 09-10-2024 Subsequent hospital visit by physician Amy Carreon APRN-PAINT PREP TECHNICIAN Work Phone: [facility] Comment on above: Arrived Start: 09-08-2024 End: 09-10-2024 Telephone encounter Jeana Guerra MD Work Phone: [facility] [place] Comment on above: Results Start: 09-06-2024 End: 09-06-2024 ambulatory [facility] Facility:[facility] Start: 08-30-2024 End: 08-30-2024 Office outpatient visit 25 minutes Jeana Guerra MD Work Phone: [facility] [place] Comment on above: Type 2 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) (Primary Dx); Essential hypertension; Hyperlipidemia, unspecified hyperlipidemia type; Acquired hypothyroidism Start: 08-30-2024 End: 08-30-2024 ambulatory [facility] Facility:[facility] Start: 07-03-2024 Refill eJana Chi Work Phone: [facility] [place] Comment on above: Refill Request Start: 04-23-2024 ambulatory Greta BhandariPAINT PREP TECHNICIAN Work Phone: [facility] Medicine [place] Comment on above: Sleep Medication Start: 04-12-2024 End: 04-12-2024 Patient encounter procedure Greta Arreola APRN.PAINT PREP TECHNICIAN Work Phone: Internal Medicine [place] Comment on above: Essential hypertensi on (Primary Dx) Start: 04-04-2024 End: 04-04-2024 Patient encounter procedure Argentina Escobar PA-C Work Phone: Orthopaedics Comment on above: Carpal tunnel syndro me on left (Primary Dx) Start: 03-30-2024 End: 03-30-2024 Patient encounter procedure Miranda Moseskatharina Work Phone: Podiatry Comment on above: Onychomycosis (Prima ry Dx); Pain in toe of right foot; Pain in toe of left foot; Type 2 diabetes mellitus with peripheral neuropathy (HCC) Start: 03-29-2024 End: 03-29-2024 Patient encounter procedure Greta Arreola APRN.PAINT PREP TECHNICIAN Work Phone: [facility] [place] Comment on above: Essential hypertensi on (Primary Dx); Hyperlipidemia, unspecified hyperlipidemia type; Type 2 diabetes mellitus with peripheral neuropathy (HCC); Hypothyroidism, adult; Function kidney decreased Start: 03-13-2024 ambulatory Jeana Chi Work Phone: Internal Medicine [facility] Start: 02-29-2024 End: 02-29-2024 Nursing evaluation of patient and report Yee Lema RN Work Phone: Orthopaedics Comment on above: Post-operative state (Primary Dx) Start: 01-27-2024 End: 01-27-2024 Admission to establishment [facility] [place] 1 Work Phone: [facility] [place] Start: 01-27-2024 End: 01-27-2024 ambulatory [facility] [place] [facility] Work Phone: Pre Anesthesia Comment on above: Preoperative examina tion (Primary Dx); Diabetic polyneuropathy associated with type 2 diabetes mellitus (HCC); Essential hypertension; Peripheral venous insufficiency; 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lbuminuria, without long-term current use of insulin (HCC) (HCC); History of cancer of right breast; Lipodermatosclerosis; Carpal tunnel syndrome on left Start: 01-27-2024 End: 01-27-2024 Preprocedural examination done [facility] [place] 1 Work Phone: [facility] Work Phone: Start: 01-03-2024 Refill Jeana Chi Work Phone: Internal Medicine [place] Comment on above: Refill Request Start: 12-28-2023 ambulatory Grady Wells MD, PhD Work Phone: Orthopaedics Start: 12-07-2023 End: 12-07-2023 Subsequent hospital visit by physician Xr [facility] Work Phone: Radiology Comment on above: Pain [R52] Start: 09-29-2023 End: 09-29-2023 Patient encounter procedure Greta Arreola APRN.PAINT PREP TECHNICIAN Work Phone: Internal Medicine [place] Comment on above: Essential hypertensi on (Primary Dx); Type 2 diabetes mellitus with peripheral neuropathy (HCC); Hypothyroidism, adult; Hyperlipidemia, unspecified hyperlipidemia type; Carpal tunnel syndrome of left wrist Start: 09-13-2023 ambulatory Jeana Guerra M Arti Work Phone: Internal Medicine [facility] Start: 09-12-2023 Refill Jeana Groverta M D Work Phone: [facility] [place] [...] Office outpatient visit 25 minutes Adrian Jeong APRN-PAINT PREP TECHNICIAN Work Phone: [facility] [place] Comment on above: Leg swelling (Primar y Dx); Lipodermatosclerosis of both lower extremities; Lymphedema; Chronic venous insufficiency; Leg cramps; Bruit of left carotid artery Start: 09-05-2023 End: 09-05-2023 Subsequent hospital visit by physician Amy HERNANDEZ Work Phone: [facility]ammography at [facility] Comment on above: Arrived Start: 04-19-2023 End: [...] ambulatory Jeana Chi Work Phone: Internal Medicine [facility] Start: 03-03-2023 Telephone encounter Jeana pollock MD Work Phone: Internal Medicine [place] Comment on above: Handicap placard Start: 01-24-2023 End: 01-24-2023 Office outpatient new 60 minutes Aubrey Kelley DO Work Phone: [facility] Comment on above: Leg swelling (Primar y [...] Jeana Guerra MD Work Phone: Internal Medicine [place] Comment on above: Hyperlipidemia, unsp ecified hyperlipidemia type; Essential hypertension Start: 10-21-2022 Refill Jeana Chi Work Phone: [facility] Medicine [place] Comment on above: Refill Request Start: 09-29-2022 Telephone encounter Jeana pollock MD Work Phone: Internal Medicine [place] Comment on above: Consult Start: 09-03-2022 End: 09-03-2022 ambulatory [facility] Work Phone: Start: 09-03-2022 End: 09-03-2022 Patient encounter procedure [facility] Start: 08-31-2022 End: 09-20-2022 ambulatory [facility] Work Phone: Start: 08-31-2022 End: 09-20-2022 [facility] [place] Start: 08-31-2022 Registered [facility] Start: 08-30-2022 End: 08-30-2022 Subsequent hospital visit by physician Amy HERNANDEZ Work Phone: [facility] at [facility] [place] Comment on above: Arrived Start: 08-03-2022 ambulatory Jeana Chi Work Phone: Internal Medicine [facility] [place] Start: 06-29-2022 Refill Jeana Chi Work Phone: [facility] Medicine [place] Comment on above: Refill Request Start: 04-06-2022 Telephone encounter Greta Arreola APRN.CNP Work Phone: Internal Medicine [place] Comment on above: Blood Pressure Check ; Patient Update Start: 04-06-2022 End: 04-06-2022 Nursing evaluation of patient and report Mi Nurse Work Phone: Family Medicine [place] Comment on above: Essential hypertensi on (Primary Dx) Start: 03-30-2022 End: 03-30-2022 Patient encounter procedure Miranda De Work Phone: Podiatry Comment on above: Onychomycosis (Prima ry Dx); Type 2 diabetes mellitus with peripheral neuropathy (HCC); Pain in toe of right foot; Pain in toe of left foot Start: 03-22-2022 End: 03-22-2022 Patient encounter procedure Jeana Guerra MD Work Phone: Internal Medicine [place] Comment on above: Hypothyroidism, unsp ecified type [...] ambulatory Jeana Chi Work Phone: Internal Medicine [facility] Start: 02-24-2018 End: 02-24-2018 Ambulatory [facility] Start: 02-27-2009 Patient encounter status Effie abbottjaney Lauri MULTIMEDIA AUTHOR-PAINT PREP TECHNICIAN Work Phone: [facility] Work Phone: Procedures Date Procedure Procedure [...] bi 2-view breast inc cad Amy Carreon MULTIMEDIA AUTHOR-PAINT PREP TECHNICIAN Work Phone: Start: 03-29-2024 Adult depression scr eening assessment Jeana Guerra MD Work Phone: Start: 12-07-2023 Radex hand minimum 3 views Grady Wells MD, PhD Work Phone: Start: 09-05-2023 Screening mammograph y bi 2-view breast inc cad Amy Lauri MULTIMEDIA AUTHOR-PAINT PREP TECHNICIAN Work Phone: Start: 09-03-2022 MRI of brain with contrast Start: 08-30-2022 Screening mammograph y bi 2-view breast inc cad Amy Lauri MULTIMEDIA AUTHOR-PAINT PREP TECHNICIAN Work Phone: H/O: surgery History of lumpe ctomy of right breast Plan of Treatment Date Care Activity Detail Author Start: 03-01-2026 Diabetic foot examination Diabetic Foot Exam [facility] Start: 02-27-2026 Hepatitis B surface antibody level LDL Cholesterol [facility] Start: 10-09-2025 Glaucoma screening Dilated Retinal Exam [facility] Start: 09-16-2025 End: 09-16-2025 Patient encounter procedure [facility] [place] Start: 09-10-2025 End: 10-11-2025 MG Breast - bilateral Screening MAMMO SCREENING WITH DAVION BILATERAL Imaging Routine Ductal carcinoma in situ (DCIS) of right breast Encounter for screening mammogram for malignant neoplasm of breast Expected: 09/10/2025, Expires: 10/11/2025 [facility] Comment on above: Expected: 09/10/2025, Expires: Start: 09-10-2025 Screening for malignant neoplasm of breast MAMMOGRAM SCREENING DISCUSSION [facility] Start: 09-06-2025 Hepatitis B surface antibody level LDL Cholesterol [facility] Start: 08-29-2025 Hemoglobin A1c measurement HbA1C [facility] Start: 08-02-2025 End: 08-02-2025 Patient encounter procedure 08/02/2025 1:00 PM EDT Office Visit Podiatry [address] [place] [address] Miranda De [address] [place] [address] 3 mo diab nail follow up Podiatry Comment on above: 3 mo diab nail follow up Start: 04-29-2025 End: 04-29-2025 Patient encounter procedure 04/29/2025 10:00 AM EDT Office Visit [facility] [place] [address] [place] [address] Jeana Guerra MD [address] [place] [address] 2 month f/u [facility] [place] Comment on above: 2 month f/u Start: 04-16-2025 Verification routine [facility] Start: 04-16-2025 Admission procedure [facility] Start: 04-16-2025 [facility] Start: 04-16-2025 Hospital admission, emergency, from emergency room, medical nature [facility] Start: 04-16-2025 [facility] Start: 04-10-2025 Hepatitis B surface antibody level LDL Cholesterol [facility] Start: 03-30-2025 Diabetic foot examination Diabetic Foot Exam [facility] Start: 03-29-2025 Anxiety Screening Anxiety Screening [facility] Start: 03-29-2025 Depression Screening Depression Screening [facility] Start: 03-07-2025 Hemoglobin A1c measurement HbA1C [facility] Start: 03-04-2025 End: 03-04-2025 Patient encounter procedure 03/04/2025 9:40 AM EDT Office Visit [facility] Medicine [place] [address] [place] [address] Jeana Guerra MD [address] [place] [address] 6 month follow up [facility] [place] Comment on above: 6 month follow up Start: 03-01-2025 End: 03-01-2025 Patient encounter procedure Podiatry Comment on above: 3 month follow up nail care Start: 01-15-2025 End: 01-15-2025 Patient encounter procedure 01/15/2025 2:00 PM EST Office Visit Podiatry [address] [place] [address] Miranda De [address] [address] 3 month follow up nail care Podiatry Comment on above: 3 month follow up nail care Start: 01-11-2025 Patient discharge [facility] Start: 01-09-2025 Dietary regime [facility] Start: 01-09-2025 Vital signs measurements [facility] Start: 01-09-2025 [facility] Start: 01-09-2025 Referral to lab clerk [facility] Start: 01-08-2025 Application of elastic bandage [facility] Start: 01-08-2025 Elevation of affected extremity [facility] Start: 01-08-2025 Notification of physician [facility] Start: 01-08-2025 Patient education [facility] Start: 01-08-2025 Oxygen therapy [facility] Start: 01-08-2025 Ambulation without limitation [facility] Start: 01-08-2025 Assessment of risk of venous thromboembolism [facility] Start: 01-08-2025 Incentive spirometry [facility] Start: 01-08-2025 Insertion of catheter into peripheral vein [facility] Start: 01-08-2025 Measuring intake and output [facility] Start: 01-08-2025 Providing care according to standard [facility] Start: 01-08-2025 Referral to occupational therapist [facility] Start: 01-08-2025 Referral to service [facility] Start: 01-08-2025 [facility] Start: 01-08-2025 Following clinical pathway protocol [facility] Start: 01-08-2025 End: 04-09-2025 Comprehensive metabolic 2000 panel - Serum or Plasma COMPREHENSIVE METABOLIC PANEL Lab Routine Increased abdominal girth Expected: 01/08/2025, Expires: 04/09/2025 [facility] Comment on above: Expected: 01/08/2025, Expires: Start: 01-08-2025 End: 04-09-2025 Magnesium [Mass/volume] in Serum or Plasma MAGNESIUM Lab Routine Palpitations Expected: 01/08/2025, Expires: 04/09/2025 [facility] Comment on above: Expected: 01/08/2025, Expires: Start: 01-08-2025 End: 04-09-2025 Natriuretic peptide.B prohormone N-Terminal [Mass/volume] in Serum or Plasma NT PRO BNP Lab Routine Increased abdominal girth Cardiac arrhythmia, unspecified cardiac arrhythmia type Palpitations Dyspnea, unspecified type Expected: 01/08/2025, Expires: 04/09/2025 [facility] Comment on above: Expected: 01/08/2025, Expires: Start: 01-08-2025 End: 04-09-2025 Thyrotropin [Units/volume] in Serum or Plasma THYROID STIMULATING HORMONE Lab Routine Palpitations Expected: 01/08/2025, Expires: 04/09/2025 [facility] Comment on above: Expected: 01/08/2025, Expires: Start: 01-08-2025 Admission procedure [facility] Start: 01-08-2025 Patient referral to dietitian [facility] Start: 11-21-2024 Advance Directive Discussion Advance Directive Discussion [facility] Start: 10-11-2024 End: 10-11-2024 Patient encounter procedure Podiatry Comment on above: 3 MONTH FOLLOW UP Start: 09-29-2024 Hepatitis B Vaccine (1 of 3 - Risk 3-dose series) Hepatitis B Vaccine (1 of 3 - Risk 3-dose series) [facility] Comment on above: Postponed from 1999 (Declined at t his time) Start: 09-29-2024 RSV Vaccine (1 - 1-dose 60+ series) RSV Vaccine (1 - 1-dose 60+ series) [facility] Comment on above: Postponed from 1999 (Declined at t his time) Start: 09-29-2024 Shingrix Vaccine (2 of 3) Shingrix Vaccine (2 of 3) [facility] Comment on above: Postponed from 10/01/2009 (Declined at t his time) Start: 09-29-2024 Urine microalbumin profile DTaP,Tdap,Td Vaccine (2 - Td or Tdap) [facility] Comment on above: Postponed from 09/20/2022 (Declined at t his time) Start: 09-28-2024 Covid-19 Vaccine () Covid-19 Vaccine ( season) [facility] Start: 09-27-2024 Hemoglobin A1c measurement HbA1C [facility] Start: 09-22-2024 Hepatitis B surface antibody level LDL Cholesterol [facility] Start: 09-21-2024 End: 09-21-2024 Patient encounter procedure 09/21/2024 2:00 PM EDT Office Visit Podiatry [address] [place] [address] Miranda De [address] [facility] [place] [place] [address] 3 MONTH FOLLOW UP Podiatry Comment on above: 3 MONTH FOLLOW UP Start: 09-18-2024 End: 09-18-2024 Patient encounter procedure 09/18/2024 11:20 AM EDT Office Visit [facility] Medicine [place] [address] [place], [place] [id number] Jeana Guerra MD [address] [place] [address] 6 month follow up [facility] Medicine [place] Comment on above: 6 month follow up Start: 09-16-2024 Glaucoma screening Dilated Retinal Exam [facility] Start: 09-16-2024 Hepatitis C antibody, confirmatory test Dilated Retinal Exam [facility] Start: 09-10-2024 End: 09-10-2024 Patient encounter procedure [facility] Start: 09-05-2024 Screening for malignant neoplasm of breast MAMMOGRAM SCREENING DISCUSSION [facility] Start: 07-22-2024 COVID-19 VACCINE ( season) COVID-19 VACCINE ( season) [facility] Start: 07-22-2024 COVID-19 VACCINE () COVID-19 VACCINE ( season) [facility] Start: 07-22-2024 Covid-19 Vaccine () Covid-19 Vaccine () [facility] Start: 07-22-2024 Influenza [facility] Start: 04-19-2024 3 comp foot exam completed DIABETIC FOOT EXAM [facility] Start: 04-19-2024 Diabetic foot examination Diabetic Foot Exam [facility] Start: 04-12-2024 End: 07-12-2024 Comprehensive metabolic 2000 panel - Serum or Plasma COMPREHENSIVE METABOLIC PANEL Lab Routine Hyperlipidemia, unspecified hyperlipidemia type Function kidney decreased Expected: 04/12/2024 (Approximate), Expires: 07/12/2024 [facility] Work Phone: Comment on above: Expected: 04/12/2024 (Approximate), Expi res: 07/12/2024 Start: 04-12-2024 End: 04-12-2024 Patient encounter procedure 04/12/2024 8:20 AM EDT Office Visit [facility] Medicine [place] [address] [place], [place] [address] Greta Arreola APRN.PAINT PREP TECHNICIAN [address] [place], [place] [address] 2 Week F/U-BP & lab results [facility] [place] Comment on above: 2 Week F/U-BP & lab results Start: 04-10-2024 End: 04-10-2024 ambulatory 04/10/2024 11:00 AM EDT [facility] [address] [place] [address] [facility] Start: 04-04-2024 End: 04-04-2024 Patient encounter procedure 04/04/2024 11:40 AM EDT Office Visit Orthopaedics [address] [place] [address] Argentina Escobar, PA-C [address] [facility] [place] [address] 4wk follow up Orthopaedics Comment on above: 4wk follow up Start: 03-30-2024 End: 03-30-2024 Patient encounter procedure 03/30/2024 11:00 AM EDT Office Visit Podiatry [address] [place] [address] Miranda De [address] [place] [address] 3 month follow up nailcare Podiatry Comment on above: 3 month follow up nailcare Start: 03-29-2024 End: 06-28-2024 Lipid 1996 panel - Serum or Plasma LIPID PANEL BASIC Lab Routine Hyperlipidemia, unspecified hyperlipidemia type Expected: 03/29/2024, Expires: 06/28/2024 [facility] Comment on above: Expected: 03/29/2024, Expires: Start: 03-29-2024 End: 03-29-2024 Patient encounter procedure 03/29/2024 10:40 AM EDT Office Visit [facility] [place] [address] [facility] [place] [address] Greta Arreola APRN.PAINT PREP TECHNICIAN [address] [place] [address] 6 month follow up [facility] [place] Comment on above: 6 month follow up Start: 03-22-2024 Hemoglobin A1c measurement HbA1C [facility] Start: 03-22-2024 Hemoglobin A1c/Hemoglobin.total in Blood HbA1C [facility] Start: 03-13-2024 End: 06-12-2024 Basic metabolic 2000 panel - Serum or Plasma BASIC METABOLIC PANEL Lab Routine Diabetic polyneuropathy associated with type 2 diabetes mellitus (HCC) Expected: 03/13/2024, Expires: 06/12/2024 [facility] Work Phone: Comment on above: Expected: 03/13/2024, Expires: Start: 03-13-2024 End: 06-12-2024 CBC panel - Blood by Automated count COMPLETE BLOOD COUNT Lab Routine Diabetic polyneuropathy associated with type 2 diabetes mellitus (HCC) Expected: 03/13/2024, Expires: 06/12/2024 [facility] Comment on above: Expected: 03/13/2024, Expires: Start: 03-13-2024 End: 06-12-2024 Hemoglobin A1c in Blood HEMOGLOBIN A1C Lab Routine Diabetic polyneuropathy associated with type 2 diabetes mellitus (HCC) Expected: 03/13/2024, Expires: 06/12/2024 [facility] Comment on above: Expected: 03/13/2024, Expires: 4 Start: 03-13-2024 End: 06-12-2024 Thyrotropin [Units/volume] in Serum or Plasma THYROID STIMULATING HORMONE Lab Routine Hypothyroidism Expected: 03/13/2024, Expires: 06/12/2024 [facility] Comment on above: Expected: 03/13/2024, Expires: Start: 12-19-2023 Covid-19 Vaccine () Covid-19 Vaccine () [facility] Start: 11-21-2023 Advance Directive Discussion Advance Directive Discussion [facility] Start: 11-21-2023 Behavioral Health Screening Behavioral Health Screening [facility] Start: 11-21-2023 Depression Assessment Depression Assessment [facility] Start: 10-07-2023 Hemoglobin A1c/Hemoglobin.total in Blood HBA1C [facility] Start: 09-13-2023 End: 12-13-2023 Hemoglobin A1c in Blood HGB A1C Lab Routine Diabetic polyneuropathy associated with type 2 diabetes mellitus (HCC) Expected: 09/13/2023, Expires: 12/13/2023 [facility] Work Phone: Comment on above: Expected: 09/13/2023, Expires: 4 Start: 09-13-2023 End: 12-13-2023 Lipid 1996 panel - Serum or Plasma LIPID PANEL BASIC Lab Routine Hyperlipidemia Expected: 09/13/2023, Expires: 12/13/2023 [facility] Work Phone: Comment on above: Expected: 09/13/2023, Expires: 4 Start: 09-05-2023 End: 09-05-2023 Patient encounter procedure [facility] Start: 08-30-2023 Screening for malignant neoplasm of breast MAMMOGRAM SCREENING DISCUSSION [facility] Start: 08-29-2023 End: 08-29-2023 Patient encounter procedure 08/29/2023 Office Visit Cardiovascular Medicine Adrian Jeogn, MULTIMEDIA AUTHOR-PAINT PREP TECHNICIAN [address] [facility] [address] [place] [address] [facility] Start: 08-18-2023 Hepatitis C antibody, confirmatory test DILATED RETINAL EXAM [facility] Start: 07-22-2023 COVID-19 VACCINE ( season) COVID-19 VACCINE () [facility] Start: 07-22-2023 Influenza vaccination INFLUENZA VACCINE (#1) [facility] Start: 03-29-2023 End: 05-29-2023 CBC panel - Blood by Automated count CBC Lab Routine Diabetic polyneuropathy associated with type 2 diabetes mellitus (HCC) Expected: 03/29/2023, Expires: 05/29/2023 [facility] Work Phone: Comment on above: Expected: 03/29/2023, Expires: 3 Start: 03-29-2023 End: 05-29-2023 Hemoglobin A1c in Blood HGB A1C Lab Routine Diabetic polyneuropathy associated with type 2 diabetes mellitus (HCC) Expected: 03/29/2023, Expires: 05/29/2023 [facility] Work Phone: Comment on above: Expected: 03/29/2023, Expires: 3 Start: 03-29-2023 End: 05-29-2023 Thyrotropin [Units/volume] in Serum or Plasma TSH BLD Lab Routine Hypothyroidism Expected: 03/29/2023, Expires: 05/29/2023 [facility] Work Phone: Comment on above: Expected: 03/29/2023, Expires: 3 Start: 03-22-2023 3 comp foot exam completed DIABETIC FOOT EXAM [facility] Start: 02-10-2023 Hemoglobin A1c/Hemoglobin.total in Blood HBA1C [facility] Start: 01-24-2023 End: 01-25-2024 US.doppler Carotid arteries - bilateral VASC DUPLEX CAROTID BILATERAL Imaging Routine Leg swelling Lipodermatosclerosis of both lower extremities Chronic venous insufficiency Lymphedema Abdominal pannus Leg cramps Pain in both lower extremities Bruit of left carotid artery Expected: 01/24/2023, Expires: 01/25/2024 [facility] Comment on above: Expected: 01/24/2023, Expires: 4 Start: 11-29-2022 End: 01-29-2023 CBC W Auto Differential panel - Blood CBC + DIFF Lab Routine Essential hypertension 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lbuminuria, without long-term current use of insulin (HCC) Expected: 11/29/2022, Expires: 01/29/2023 [facility] Work Phone: Comment on above: Expected: 11/29/2022, Expires: 3 Start: 11-29-2022 End: 01-29-2023 Comprehensive metabolic 2000 panel - Serum or Plasma COMP METABOLIC PANEL Lab Routine Essential hypertension Hyperlipidemia, unspecified hyperlipidemia type 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lbuminuria, without long-term current use of insulin (HCC) Expected: 11/29/2022, Expires: 01/29/2023 [facility] Work Phone: Comment on above: Expected: 11/29/2022, Expires: 3 Start: 11-29-2022 End: 01-29-2023 Hemoglobin A1c in Blood HGB A1C Lab Routine 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lbuminuria, without long-term current use of insulin (HCC) Expected: 11/29/2022, Expires: 01/29/2023 [facility] Work Phone: Comment on above: Expected: 11/29/2022, Expires: 3 Start: 11-29-2022 End: 01-29-2023 Lipid 1996 panel - Serum or Plasma LIPID PANEL BASIC Lab Routine Hyperlipidemia, unspecified hyperlipidemia type Expected: 11/29/2022, Expires: 01/29/2023 [facility] Work Phone: Comment on above: Expected: 11/29/2022, Expires: 3 Start: 11-29-2022 End: 01-29-2023 Thyrotropin [Units/volume] in Serum or Plasma TSH BLD Lab Routine Hypothyroidism, adult Expected: 11/29/2022, Expires: 01/29/2023 [facility] Work Phone: Comment on above: Expected: 11/29/2022, Expires: 3 Start: 11-21-2022 ADVANCE DIRECTIVE DISCUSSION ADVANCE DIRECTIVE DISCUSSION [facility] Start: 11-21-2022 DEPRESSION ASSESSMENT DEPRESSION ASSESSMENT [facility] Start: 09-20-2022 Tetanus vaccination TETANUS [facility] Start: 09-20-[address] [facility] Start: 09-15-2022 Hemoglobin A1c/Hemoglobin.total in Blood HBA1C [facility] Start: 08-03-2022 End: 10-03-2022 Hemoglobin A1c in Blood HGB A1C Lab Routine Diabetic polyneuropathy associated with type 2 diabetes mellitus (HCC) Expected: 08/03/2022, Expires: 10/03/2022 [facility] Work Phone: Comment on above: Expected: 08/03/2022, Expires: 2 Start: 08-03-2022 End: 10-03-2022 SCHEDULE LAB TESTING SCHEDULE LAB TESTING Lab Routine Expected: 08/03/2022, Expires: 10/03/2022 [facility] Work Phone: Comment on above: Expected: 08/03/2022, Expires: 2 Start: 07-22-2022 Influenza vaccination INFLUENZA (#1) [facility] Start: 04-15-2022 COVID-19 VACCINE (5 - Booster for Moderna series) COVID-19 VACCINE (5 - Booster for Moderna series) [facility] Start: 03-20-2022 Hepatitis C antibody, confirmatory test DILATED RETINAL EXAM [facility] Start: 03-18-2022 Hepatitis B surface antibody level LDL CHOLESTEROL [facility] Start: 03-17-2022 Hemoglobin A1c/Hemoglobin.total in Blood HBA1C [facility] Start: 03-09-2022 End: 05-09-2022 CBC panel - Blood by Automated count CBC Lab Routine Diabetic polyneuropathy associated with type 2 diabetes mellitus (HCC) Expected: 03/09/2022, Expires: 05/09/2022 [facility] Work Phone: Comment on above: Expected: 03/09/2022, Expires: 2 Start: 03-09-2022 End: 05-09-2022 Hemoglobin A1c/Hemoglobin.total in Blood HGB A1C Lab Routine Diabetic polyneuropathy associated with type 2 diabetes mellitus (HCC) Expected: 03/09/2022, Expires: 05/09/2022 [facility] Work Phone: Comment on above: Expected: 03/09/2022, Expires: 2 Start: 03-09-2022 End: 05-09-2022 SCHEDULE LAB TESTING SCHEDULE LAB TESTING Lab Routine Expected: 03/09/2022, Expires: 05/09/2022 [facility] Work Phone: Comment on above: Expected: 03/09/2022, Expires: 2 Start: 03-09-2022 End: 05-09-2022 Thyrotropin [Units/volume] in Serum or Plasma TSH BLD Lab Routine Hypothyroidism Expected: 03/09/2022, Expires: 05/09/2022 [facility] Work Phone: Comment on above: Expected: 03/09/2022, Expires: 2 Start: 12-05-2021 3 comp foot exam completed DIABETIC FOOT EXAM [facility] Start: 11-21-2021 ADVANCE DIRECTIVE DISCUSSION ADVANCE DIRECTIVE DISCUSSION [facility] Start: 01-03-2021 Screening for malignant neoplasm of colon COLORECTAL CANCER SCREENING DISCUSSION [facility] Start: 02-24-2010 Potassium [Moles/volume] in Serum or Plasma POTASSIUM [facility] Start: 10-01-2009 SHINGRIX VACCINE (2 of 3) SHINGRIX VACCINE (2 of 3) [facility] Start: 10-01-2009 Zoster vaccine hzv live for subcutaneous use ZOSTER (SHINGLES) VACCINE (2 of 3) [facility] Start: 1999 Hepatitis B Vaccine (1 of 3 - Risk 3-dose series) Hepatitis B Vaccine (1 of 3 - Risk 3-dose series) [facility] Start: 1999 RSV Vaccine (1 - 1-dose 60+ series) RSV Vaccine (1 - 1-dose 60+ series) [facility] Start: 1984 Screening for malignant neoplasm of colon COLORECTAL CANCER SCREENING DISCUSSION [facility] Start: 1960 Screening for malignant neoplasm of cervix CERVICAL CANCER SCREENING DISCUSSION [facility] Start: 06-03-1940 COVID-19 VACCINE (#1) COVID-19 VACCINE (#1) [facility] Start: 1939 Hepatitis B vaccination HEP B VACCINE (1 of 3 - 3-dose series) [facility] Start: 1939 Screening for osteoporosis DEXA SCAN DISCUSSION [facility] Start: 1939 Thyroid stimulating hormone measurement TSH [facility] Bilirubin measuremen t, urine [facility] Cardioversion [facility] End: 08-30-2025 CBC panel - Blood by Automated count COMPLETE BLOOD COUNT Lab Routine Type 2 diabetes mellitus with peripheral neuropathy (HCC) Every 6 months for 12 Occurrences starting 08/30/2024 until 08/30/2025 [facility] Comment on above: Every 6 months for 12 Occurrences starti ng 08/30/2024 until 08/30/2025 End: 08-30-2025 Comprehensive metabolic 2000 panel - Serum or Plasma COMPREHENSIVE METABOLIC PANEL Lab Routine Type 2 diabetes mellitus with peripheral neuropathy (HCC) Every 6 months for 12 Occurrences starting 08/30/2024 until 08/30/2025 [facility] Comment on above: Every 6 months for 12 Occurrences starti ng 08/30/2024 until 08/30/2025 ECG COMPLETE ECG COMPLETE ECG Routine Cardiac arrhythmia, unspecified cardiac arrhythmia type 01/08/2025 10:[address] [facility] End: 01-08-2026 Echocardiography ECHO Cardiology OCTAVIA Increased abdominal girth Cardiac arrhythmia, unspecified cardiac arrhythmia type Edema due to malnutrition, due to unspecified malnutrition type (HCC) Palpitations 1 Occurrences starting 01/08/2025 until 01/08/2026 [facility] Work Phone: Comment on above: 1 Occurrences starting 01/08/2025 until 01/08/2026 Hemoglobin [Presence ] in Urine [facility] End: 08-30-2025 Hemoglobin A1c in Blood HEMOGLOBIN A1C Lab Routine Type 2 diabetes mellitus with peripheral neuropathy (HCC) Every 3 months for 24 Occurrences starting 08/30/2024 until 08/30/2025 [facility] Work Phone: Comment on above: Every 3 months for 24 Occurrences starti ng 08/30/2024 until 08/30/2025 End: 08-30-2025 Lipid 1996 panel - Serum or Plasma LIPID PANEL BASIC Lab Routine Type 2 diabetes mellitus with peripheral neuropathy (HCC) Every 6 months for 12 Occurrences starting 08/30/2024 until 08/30/2025 [facility] Comment on above: Every 6 months for 12 Occurrences starti ng 08/30/2024 until 08/30/2025 Measurement of keton es in urine using dipstick [facility] Microscopic urinalysis [facility] OUTSIDE VENDOR CARDI AC OUTPATIENT EXTENDED RHYTHM RECORDING (WITHOUT TELEMETRY) OUTSIDE VENDOR CARDIAC OUTPATIENT EXTENDED RHYTHM RECORDING (WITHOUT TELEMETRY) Holter Routine Palpitations Dyspnea, unspecified type Ordered: 01/08/2025 [facility] Comment on above: Ordered: 01/08/2025 Patient Education RAD RN Thoracentesis [facility] Work Phone: Patient referral [facility] Work Phone: pH of Urine [facility] Specific gravity of Urine [facility] End: 08-30-2025 Thyrotropin [Units/volume] in Serum or Plasma THYROID STIMULATING HORMONE Lab Routine Type 2 diabetes mellitus with peripheral neuropathy (HCC) Every 3 months for 24 Occurrences starting 08/30/2024 until 08/30/2025 [facility] Comment on above: Every 3 months for 24 Occurrences starti ng 08/30/2024 until 08/30/2025 Troponin T.cardiac [Mass/volume] in Serum or Plasma by High sensitivity method [facility] Urine blood test [facility] Urine dipstick for glucose [facility] Urine dipstick for leukocyte esterase [facility] Urine dipstick for nitrite [facility] Urine dipstick for protein [facility] Urine examination [facility] Urine microscopy: epithelial cells [facility] Urine Microscopy: wh ite cells [facility] Urobilinogen [Presen ce] in Urine [facility] End: 02-07-2026 US Abdomen US ASCITES SURVEY Radiology Routine Increased abdominal girth Edema due to malnutrition, due to unspecified malnutrition type (HCC) Dyspnea, unspecified type 1 Occurrences starting 01/08/2025 until 02/07/2026 [facility] Comment on above: 1 Occurrences starting 01/08/2025 until 02/07/2026 End: 02-07-2026 US Abdomen RUQ US ABD RIGHT UPPER QUADRANT Radiology Routine Increased abdominal girth Edema due to malnutrition, due to unspecified malnutrition type (HCC) Dyspnea, unspecified type 1 Occurrences starting 01/08/2025 until 02/07/2026 [facility] Comment on above: 1 Occurrences starting 01/08/2025 until 02/07/2026 US.doppler Lower extremity vein - bilateral VASC DUPLEX VENOUS WITH REFLUX BILATERAL LOWER Imaging Routine Leg swelling Lipodermatosclerosis of both lower extremities Chronic venous insufficiency Lymphedema Abdominal pannus Leg cramps Ordered: 01/24/2023 [facility] Comment on above: Ordered: 01/24/2023 [facility] Immunizations Immunization Date Immunization Notes Care Provider Deloris [facility] 08-03-2024 COVID-19 original vaccine, full dose, monovalent (MODERNA) Jeana Guerra MD Work Phone: [facility] 08-03-2024 influenza, high dose seasonal, preservative-free Jeana Guerra MD Work Phone: [facility] 10-19-2023 respiratory syncytia l virus (RSV) vaccine, bivalent (ABRYSVO) Grady Wells MD, PhD Work Phone: [facility] 08-19-2023 COVID-19 vaccine, ag e 12+ yr, season (MODERNA) Greta Arreola APRN.PAINT PREP TECHNICIAN Work Phone: [facility] 08-19-2023 influenza (HD-IIV4) vaccine, age 65+ yr, high dose, quadrivalent, PF (FLUZONE HIGH-DOSE) Greta Arreola MULTIMEDIA AUTHOR.PAINT PREP TECHNICIAN Work Phone: [facility] 08-19-2023 influenza virus vacc ine, unspecified formulation Jeana Guerra MD Work Phone: [facility] 08-04-2022 influenza, high dose seasonal, preservative-free Jeana Guerra MD Work Phone: [facility] Work Phone: 08-04-2022 influenza virus vacc ine, unspecified formulation Adrian Jeong MULTIMEDIA AUTHOR-PAINT PREP TECHNICIAN Work Phone: [facility] 09-21-2021 influenza, high-dose , quadrivalent vaccine (FLUZONE HIGH DOSE QUADRIVALENT) Jeana Guerra MD Work Phone: [facility] Work Phone: 01-08-2021 COVID-19 vaccine, fu ll dose (MODERNA) Jeana Guerra MD Work Phone: [facility] Work Phone: 12-11-2020 COVID-19 vaccine, fu ll dose (MODERNA) Jeana Guerra MD Work Phone: [facility] Work Phone: 09-01-2020 influenza, high-dose , quadrivalent vaccine (FLUZONE HIGH DOSE QUADRIVALENT) Jeana Guerra MD Work Phone: [facility] Work Phone: 09-24-2019 influenza, high dose seasonal, preservative-free Jeana Guerra MD Work Phone: [facility] Work Phone: 08-21-2018 influenza, high dose seasonal, preservative-free Greta Arreola MULTIMEDIA AUTHOR.PAINT PREP TECHNICIAN Work Phone: [facility] 09-05-2017 influenza, high dose seasonal, preservative-free Jeana Guerra MD Work Phone: [facility] Work Phone: 08-25-2016 influenza, high dose seasonal, preservative-free Jeana Guerra MD Work Phone: [facility] Work Phone: 10-02-2015 pneumococcal conjuga te vaccine, 13 valent Jeana Guerra MD Work Phone: [facility] Work Phone: 09-01-2015 influenza, high dose seasonal, preservative-free Jeana Guerra MD Work Phone: [facility] 08-23-2013 influenza virus vacc ine, unspecified formulation Jeana Guerra MD Work Phone: [facility] 09-20-2012 influenza virus vacc ine, unspecified formulation Jeana Guerra MD Work Phone: [facility] Work Phone: 09-20-2012 tetanus toxoid, redu linsey diphtheria toxoid, and acellular pertussis vaccine, adsorbed Jeana Guerra MD Work Phone: [facility] Work Phone: 11-04-2009 novel influenza-H1N1 -09, preservative-free, injectable Greta Arreola MULTIMEDIA AUTHOR.PAINT PREP TECHNICIAN Work Phone: [facility] 08-06-2009 zoster vaccine, live Jeana Guerra MD Work Phone: [facility] 08-06-2009 zoster vaccine, unspecified formulation Amy Carreon MULTIMEDIA AUTHOR-PAINT PREP TECHNICIAN Work Phone: [facility] 11-21-2005 pneumococcal polysaccharide vaccine, 23 valent Jeana Guerra MD Work Phone: [facility] Work Phone: Payers Date Payer Category Payer Self-pay [id number] 2023 Medicare (Managed Care) MAURICIO KING [id number] 2023 Medicare [id number] 2016 Unknown ANTHEM BLUE CARD TRADITIONAL OOS [id number] 2016-Present [phone] [address] [place] [address] Indemnity [id number] [id number] 2016 Unknown [id number] 1.13.159. [id number] 2004 Medicare MEDICARE MEDICAR E A AND B [id number] 2004-Present [phone] [place] [address] Medicare [id number] [id number] 2004 Medicare [id number]. 1.13.159. 2.7.3.580962.315 1939 Unknown [id number] 2.0.1.822504.3.579. 2.594 1939 Unknown [id number] 2..1.824567.3.579. 2.594 1939 Unknown [id number] 2.0.1.612342.3.579. 2.594 Medicare MEDICARE PART A B [id number] 1 [id number] Unknown ANTHEM [id number] Unknown [id number] 2.16840.1.683430.3.579. 2.462 Unknown [id number] 2.16.840.1.141266.3.579. 2.462 Unknown [id number] 2.16.840.1.546700.3.579. 2.462 Unknown [id number] 2.16.840.1.049984.3.579. 2.462 Unknown [id number] 2.16.840.1.277806.3.579. 2.462 Unknown [id number] 2.16.840.1.603642.3.579. 2.462 Unknown [id number] 2.16.840.1.862461.3.579. 2.462 Unknown [id number] 2.16.840.1.118973.3.579. 2.462 Unknown [id number] 2.16.840.1.314213.3.579. 2.462 Unknown [id number] 2.16.840.1.618740.3.579. 2.462 Unknown [id number] 2.16.840.1.489824.3.579. 2.462 Unknown [id number] 2.16.840.1.089012.3.579. 2.462 Unknown [id number] 2.16.840.1.386831.3.579. 2.462 Unknown [id number] 2.16.840.1.352074.3.579. 2.462 Unknown [id number] 2.16.840.1.714498.3.579. 2.462 Unknown [id number] 2.16.840.1.970236.3.579. 2.462 Unknown [id number] 2.16.840.1.150611.3.579. 2.462 Unknown [id number] 2.16.840.1.858447.3.579. 2.462 Unknown [id number] 2.16.840.1.306304.3.579. 2.462 Unknown [id number] 2.16.840.1.989859.3.579. 2.462 Unknown [id number] 2.16.840.1.730030.3.579. 2.462 Unknown [id number] 2.16.840.1.666302.3.579. 2.462 Unknown [id number] 2.16.840.1.132108.3.579. 2.462 Unknown [id number] 2.16.840.1.761442.3.579. 2.462 Unknown [id number] 2.16.840.1.473330.3.579. 2.462 Unknown [id number] 2.16.840.1.862280.3.579. 2.462 Unknown [id number] 2.16.840.1.608501.3.579. 2.462 Unknown [id number] 2.16.840.1.837629.3.579. 2.462 Unknown [id number] 2.16.840.1.781814.3.579. 2.462 Unknown [id number] 2.16.840.1.769439.3.579. 2.462 Unknown [id number] 2.16.840.1.827547.3.579. 2.462 Unknown [id number] 2.16.840.1.907247.3.579. 2.462 Social History Date Type Detail Facility Start: 05-18-2011 End: 04-16-2025 Tobacco smoking status [facility] Never smoked tobacco [facility] Start: 11-04-2021 End: 03-04-2025 Alcohol intake Current drinker of alcohol (finding) [facility] Start: 08-26-2020 End: 10-25-2022 History SDOH Alcohol Frequency 1 [facility] Start: 12-15-2007 History SDOH Alcohol Comment Occasional Wine [facility] Start: 08-26-2020 End: 10-25-2022 History SDOH Social Connections Phone 98 [facility] Start: 08-26-2020 End: 10-25-2022 History SDOH Social Connections Get Together 2 [facility] Start: 05-27-2020 End: 09-22-2022 History SDOH Social Connections Living 3 [facility] Start: 05-27-2020 End: 10-25-2022 History SDOH Physical Activity DPW 0 [facility] Start: 08-21-2020 End: 09-22-2022 History SDOH Financial 5 [facility] Start: 05-27-[address] [facility] Start: 1940 Sex Assigned At Female [facility] Start: 03-12-2022 End: 09-29-2022 Exposure to SARS-CoV-2 (event) Not sure [facility] Work Phone: Start: 05-18-2011 Tobacco use and exposure Smokeless tobacco non-user [facility] Start: 08-30-2022 End: 09-10-2024 Alcohol intake Current non-drinker of alcohol (finding) [facility] Start: 07-06-2009 Alcohol Comment rare [facility] Start: 1940 Sex Assigned At Not on file [facility] Start: 09-30-2017 Tobacco smoking status NHIS Unknown if ever smoked [facility] Work Phone: Start: 09-30-2017 Rare [facility] Start: 09-30-2017 None [facility] Start: 09-30-2017 Spouse/ Significant Other [facility] Start: 11-21-2017 Non-smoker [facility] Start: 01-14-2023 End: 01-24-2023 Exposure to SARS-CoV-2 (event) Unable to assess [facility] Start: 04-11-2023 End: 09-05-2023 History of Social function [facility] Start: 04-11-2023 End: 09-05-2023 Tobacco use panel [facility] How hard is it for y ou to pay for the very basics like food, housing, medical care, and heating Not hard at all [facility] (I/We) worried cheryl er (my/our) food would run out before (I/we) got money to buy more. Never true [facility] Start: 01-01-2020 Gender identity Identifies as female gender (finding) [facility] Start: 09-09-2023 End: 09-29-2023 Alcohol intake Ex-drinker (finding) [facility] Do you belong to any clubs or organizations such as roman catholic groups, unions, fraternal or athletic groups, or school groups? Yes [facility] Are you now , , , , never or living with a partner? [facility] How often to you hav e a drink containing alcohol? Monthly or less [facility] How often do you hav e 6 or more drinks on 1 occasion? Never [facility] Do you feel stress - tense, restless, nervous, or anxious, or unable to sleep at night because your mind is troubled all the time - these days [OSQ] Only a little [facility] In the past 12 month s, was there a time when you were not able to pay the mortgage or rent on time? No [facility] How many standard dr inks containing alcohol do you have on a typical day? [address] [facility] Do you feel stress - tense, restless, nervous, or anxious, or unable to sleep at night because your mind is troubled all the time - these days [OSQ] To some extent [facility] Start: 02-05-2025 End: 02-11-2025 Sex Female (finding) [facility] Medical Equipment Procedure Code Equipment Code Equipment Original Text Equipment Identifier Dates 0---Jerel Bn Smpx P Tobra Fd - [id number] Start: [id number] 5 [id number]-Orf-Xm-O-Gi nd Implant - [id number] Start: 02-20-2013 Comment on above: Description: TIBIAL TRAY FIXED BEARING [id number] 5 [id number]-Ibj-Yn-E-Tt nd Implant - [id number] Start: 02-20-2013 Comment on above: Description: OVAL DO ME PATELLA 3 PEG [id number] 5 38058-Agg-Dk-R-Fx nd Implant - [id number] Start: 02-20-2013 Comment on above: Description: FEMORAL CRUCIATE RETAINING [id number] 5 [id number]-Qsm-Wr-Y-Gw nd Implant - [id number] Start: 02-20-2013 Comment on above: Description: TIBIAL INSERT FIXED BEARING Cup Actb 50mm Pinn Sect Srs - [id number] Start: 03-20-2012 Comment on above: Description: Acetabu lar Shell Liner Actb Pinn +4mm Neut 50mm - [id number] Start: 03-20-2012 Comment on above: Description: Acetabu lar Liner Stem Fem 11mm Cmntls Clrls Crl - [id number]_[facility] Start: 03-20-2012 Comment on above: Description: Femoral Stem Head Fem +5mm /14 32mm Hip - [id number] Start: 03-20-2012 Comment on above: Description: Ceramic Femoral Head Screw Bn 6.5mm 30mm Pinn Canc - [id number]_[facility] Start: 03-20-2012 Comment on above: Description: Cancell ous Screw Screw Bn 6.5mm 20mm Pinn Canc - [id number]_[facility] Start: 03-20-2012 Comment on above: Description: Cancell ous Screw [id number], [id number] Start: 12-26-2014 End: 03-04-2025 Comment on above: Test glucose 1x/nini y, 250.00, insulin use: No USE ONE NEEDLE FOR E ACH DOSE ONCE DAILY Test blood sugar(s) 1x/daily. Dx: 250.00. Insulin: No Functional Status Date Assessment Result Facility 01-11-2025 Functional status Ambulates;Up a d elvi;Chair [facility] Work Phone: 04-18-2015 Are you deaf, or do you have serious difficulty hearing No 04/18/2015 12:39 PM Kimberly Pate RN No [facility] 04-18-2015 Are you blind, or do you have serious difficulty seeing, even when wearing glasses No 04/18/2015 12:39 PM Kimberly Pate RN No [facility] 04-18-2015 Do you have serious difficulty walking or climbing stairs Yes 04/18/2015 12:39 PM Kimberly Pate RN Yes [facility] 04-18-2015 Do you have difficul ty dressing or bathing No 04/18/2015 12:39 PM Farrukh Patea D RN No [facility] 04-18-2015 Because of a physica l, mental, or emotional condition, do you have difficulty doing errands alone such as visiting a physician's office or shopping No 04/18/2015 12:39 PM EDT Kimberly Feng RN No [facility] Mental Status Date Assessment Result Facility 01-10-2025 Cognitive function Voice/Name [facility] Work Phone: 04-18-2015 Because of a physica l, mental, or emotional condition, do you have serious difficulty concentrating, remembering, or making decisions No 04/18/2015 12:39 PM EDT Kimberly Feng RN No [facility] Clinical Notes 04-13-2018 to 04-26-2025 Telephone Encounter - Jeana Guerra MD - 04/19/2025 6:28 PM EDTTelephone Encounter - Jeana Guerra MD - 04/19/2025 6:28 PM EDTTelephone Encounter - Elizabeth Jackson MA - 04/19/2025 3:23 PM EDT Note Date & Type Note Facility 04-26-2025 Note HNO ID: [id number] Author: MIRANDA ESCOTO MA Service: ? Author Type: Head Cd Reactor Operator Type: Progress Notes Filed: 04/26/2025 12:41 Note Text: POPULATION HEALTH NAVIGATION OUTREACH Action/FYI Gaps due: AWV No HCCs or med adherence. Answered but couldn't hear me, sent mcm. Reason for Outreach Care Gap/HCC or Scheduling Wellness Visits Care Gaps due: Medicare Annual Wellness Visit Patient Contacted: Unable or unnecessary to reach patient: Unable to leave message BuildDirect message sent Updated appointment notes Navigation Signature: Miranda Escoto MA April 26, 2025 12:38 PM [facility] 04-26-2025 Note Patient Outreach (LION TNAV) BLESSING JACKSON I ([id number]) 1940 F Date Time Provider Department 04/26/25 MIRANDA ESCOTO During your visit today, we recorded the following information about you: Miranda Escoto MA 04/26/2025 12:41 PM Signed POPULATION HEALTH NAVIGATION OUTREACH Action/FYI Gaps due: AWV No HCCs or med adherence. Answered but couldn't hear me, sent mcm. Reason for Outreach Care Gap/HCC or Scheduling Wellness Visits Care Gaps due: Medicare Annual Wellness Visit Patient Contacted: Unable or unnecessary to reach patient: Unable to leave message BuildDirect message sent Updated appointment notes Navigation Signature: Miranda Escoto MA April 26, 2025 12:38 PM Allergies As of Date: 04/26/2025 Noted Allergy Reaction LOVENOX (ENOXAPARIN SODIUM) 04/14/2012 [...] MA - Fully Assessed Reason for Visit: Population Health Navigation Outreach [3910] Cmt: Mauricio lema Prescriptions as of 04/26/2025 - simvastatin (ZOCOR) 20 mg tablet Take [...] (DYMISTA) 137-50 mcg/spray nasal spray Use 1 Milaca in each nostril two times a day. [...] tablet daily. Problem List As Of Date 04/26/2025 Noted Resolved Essential hypertension [I10] Hypothyroidism [E03.9] [...] [M19.041] 09/29/2021 Peripheral venous insufficiency [I87.2] 04/19/2023 Obesity, Class III, BMI >= 40 [E66.813] 01/08/2025 Stage 3a c (more content not included)... [facility] 04-19-2025 Telephone encounter Note Long conversation with family. And gave advice Regards, Jeana Guerra MD [facility] 04-19-2025 Miscellaneous Notes Long conversation with family. And gave advice Regards, Jeana Guerra MD Spouse Avinash contact: [phone] is correct. Spouse will have phone on [...] later today for providers reply. Mckayla Card, BASIL Noted. Please set her up for hospital follow up. Jeana Asif MD Patient \ Avinash calling was admitted to [facility] on 04/16, gagging and spitting up mucous, no pneumonia diagnosis. He said she is having thoracentesis done tomorrow to remove fluid from her lung. documented in this encounter [facility] 04-19-2025 Telephone encounter Note Spouse Avinash contact: [phone] is correct. Spouse will have phone on & be waiting for call. Elizabeth Jackson MA [facility] 04-19-2025 Telephone encounter Note Please call the family and confirm the numbers I can reach them on, as I will make a call before I leave office today Jeana Asif MD [facility] 04-19-2025 Telephone encounter Note Pts called [...] today for providers reply. Mckayla Card, RN [facility] 04-19-2025 Telephone encounter Note Noted. Please set her up for hospital follow up. Jeana Asif MD T [facility] 04-18-2025 Telephone encounter Note Patient \ Avinash calling was admitted to [facility] on 04/16, gagging and spitting up mucous, no pneumonia diagnosis. He said she is having thoracentesis done tomorrow to remove fluid from her lung. [facility] 04-16-2025 Radiology Diagnostic study note [facility] Imaging Services [address] [place] [address] Chest PA and Lateral MR#: [id number] Acct: [id number] Name: BLESSING JACKSON Rep #: [id number] : 1940 F 84 From: Ulises Richard MD PCP: Dr. Jeana Guerra MD Status: REG E R Study:Chest PA and Lateral Date of Exam: 04/16/25 Exam# [id number] Ordering Dr: Nathan Torres DO PROCEDURE: CHEST [...] worse on the right side. Reading Location: [place] [address] CC: Dr. Nathan Castanon DO; Dr. Jeana Guerra MD ~ Food Service Lead: Signed [facility] 03-04-2025 Note HNO ID: [id number] Author: JEANA GUERRA MD Service: ? Author [...] - Refill prescript (more content not included)... [facility] 03-04-2025 History of Present illness Narrative [...] metoprolol and Eliquis. Cardioversion deemed unnecessary by lab clerk. - Continue metoprolol and Eliquis. - Consider using an [employer] Watch for heart rate monitoring with alerts set for heart rates >100 bpm. - Discussed the importance of anticoagulation to prevent thromboembolic events. - Follow up with cardiology as needed. Voice recognition software was used to compose this office note. Please excuse any unintended typographical errors. Recording using [employer] software for draft documentation of the visit was discussed with the patient/authorized sales representative trainee; all questions welcomed and answered. Patient/authorized sales representative trainee agreed to proceed Jeana Guerra MD documented in this encounter [facility] 03-04-2025 Telephone encounter Note The patient [...] Card RN March 04, 2025 12:[address] [facility] 03-04-2025 Miscellaneous Notes The patient has [...] 2025 12:27 PM documented in this encounter [facility] 03-04-2025 Instructions Jeana Guerra MD - [...] discussed your atrial fibrillation (AFib): - The lab clerk has recommended continuing with your current medications [...] [facility]. documented in this encounter [facility] 03-01-2025 Note HNO ID: [id number] Author: MIRANDA DE, ? Service: ? Author [...] RTC in 3-4 months. Miranda De DPM [facility] 03-01-2025 History of Present illness Narrative [...] Miranda De DPM documented in this encounter [facility] 03-01-2025 Instructions Miranda De - 03/01/2025 [...] (or decreased sensation in your feet) a ship mate should always cut your toenails. Be Careful [...] Go to your health care provider or ship mate to treat these conditions. documented in this encounter [facility] 02-21-2025 Telephone encounter Note The patient [...] Doty RN February 21, 2025 11:[address] [facility] 02-21-2025 Miscellaneous Notes The patient has [...] 2025 11:04 AM documented in this encounter [facility] 01-31-2025 Radiology Diagnostic study note [facility] Imaging Services [address] [place] [id number] Chest PA and Lateral MR#: [id number] Acct: [id number] Name: BLESSING JACKSON Rep #: [id number] : 1940 F 84 From: Malgorzata Shelby MD PCP: Dr. Jeana Guerra MD Status: ANANYA GARCIA Study:Chest PA and Lateral Date of Exam: 01/31/25 Exam# [id number] Ordering Dr: Magdi Thomas EXAM: XR Chest, 2 Views CLINICAL INDICATION: [...] effusion. Decreased left pleural effusion. [facility] CC: Dr. Jeana Guerra MD; DAVIDSON Lomeli ~ Food Service Lead: Signed [facility] 01-22-2025 Note HNO ID: [id number] Author: JEANA GUERRA MD Service: ? Author Type: Physician Type: Progress Notes Filed: 01/22/2025 17:42 Note Text: Reason for Visit Patient presents with: Hospital F/U: Hospital [facility] f/u, a fib Blessing Jackson is a 82 year old [...] 40 mg. She is follow-up tomorrow with [facility] cardiology group. She has lost almost [...] think she is needs to go to residential at this point. May be some help [...] PVD (peripheral vascular (more content not included)... [facility] 01-22-2025 History of Present illness Narrative Reason for Visit Patient presents with: Hospital F/U: Hospital [facility] f/u, a kimo Blessing Jackson is [...] 40 mg. She is follow-up tomorrow with [facility] cardiology group. She has lost almost [...] think she is needs to go to residential at this point. May be some help [...] REVISE MEDIAN N/CARPAL TUNNEL SURG Right [facility]? FAMILY HISTORY Problem Relation Age of Onset [...] tablet simvastatin (ZOCOR) 20 mg tablet Insulin [place], Disposable, (BD ULTRA-FINE MARCELO PEN NEEDLE) 32 [...] Jeana Guerra MD documented in this encounter [facility] 01-11-2025 Note [facility] 01-10-2025 Note HNO ID: [id number] Author: BRIGITTE ABEL RN Service: ? Author [...] scheduled on 03/04/25. Patient currently admitted at [facility] 01/08/25. Plan to F/U at discharge [...] patient: No, Chart review only. Signature: Brigitte Abel MSN,RN,[facility] [employer] Product Fabricator Management Contract RN [phone] [facility] 01-10-2025 History of Present illness Narrative Summary: ED utilization review per request of payor ACM MARY RN Patient identified by name and date of . Reason for review or outreach: Chart Review Mary Priority Emergency Department Utilization REQUESTED ACTION/FYI: Please see ED Utilization summary below A follow-up appointment is noted to be scheduled on 03/04/25. Patient currently admitted at [facility] 01/08/25. Plan to F/U at discharge [...] patient: No, Chart review only. Signature: Brigitte Abel MSN,RN,[facility] [employer]ricator Management Contract RN [phone] [address] in this encounter [facility] 01-10-2025 Note Patient Outreach ([facility] BLESSING JACKSON I ([id number]) 1940 F Date Time Provider Department 01/10/25 BRIGITTE ABEL [facility] During your visit today, we recorded the following information about you: Brigitte Abel RN 01/10/2025 10:14 AM Signed ACM MARY RN Patient identified by name and date of . Reason for review or outreach: Chart Review Mary Priority Emergency Department Utilization REQUESTED ACTION/FYI: Please see ED Utilization summary below A follow-up appointment is noted to be scheduled on 03/04/25. Patient currently admitted at [facility] 01/08/25. Plan to F/U at discharge [...] patient: No, Chart review only. Signature: Brigitte LAWRENCE,RN,[facility] [employer] Product Fabricator Management Contract RN [phone] Allergies As of Date: 01/10/2025 Noted Allergy [...] Assessed Reason for Visit: ACM MARY RN [6789] Cmt: ED utilization review per request of payor Prescriptions as of 01/10/2025 - azelastine-fluticasone (DYMISTA) 137-50 mcg/spray nasal spray Use 1 Milaca in each nostril two times a day. [...] by mouth daily at bedtime. - Insulin [place], Disposable, (BD ULTRA-FINE MARCELO PEN NEEDLE) 32 [...] [Z9*11/21/2013 Carpal tunn (more content not included)... [facility] 01-08-2025 Evaluation note Diagnosis Onset Date Resolution Atrial fibrillation with rapid ventricular response acute January 08, 2 025 12:50pm CHF (congestive heart failure) acute January 08, 025 12:50pm Hypertension chronic December 12:50pm Hypothyroidism chronic December 222024 12:50pm Type 2 diabetes mellitus chronic January 08, 2025 12:50pm Pleural effusion on right resolved January 08, 2 025 12:50pm Atrial fibrillation with rapid ventricular response acute January 23, 2025 10:50am Pleural effusion acute January 10:50am Dyslipidemia chronic January 23, 2 025 10:50am Hypertension chronic January 23, 2 025 10:50am [facility] Work Phone: 1(827) 812-624302-18-2025 NoteHNO ID: [id number] Author: JEANA GUERRA MD Service: ? Author [...] tried Gordy Kolluri for the atypical stropping for venous insufficiency. [...] and unspecified hyperlipidemia PVD (peripheral vascular disease) ([facility]) Special screening for malignant neoplasms, colon 12/12/2014 [...] sentinel node biopsy - Dr. Reynolds - [facility] PAST SURGICAL HISTORY OF Right 02/20/2013 Right [facility] REVISE MEDIAN N/CARPAL TUNNEL SURG Right [facility] - 2018? FAMILY HISTORY Problem Relation Age of Onset Diabetes Father Heart Mother congenital valve problem Diabetes Sister also has hx breast cancer Diabetes Sister Breast Cancer Sister sister is very private, pt not certain if it was cancer or not. Cancer Maternal Aunt uterine c (more content not included)...[facility]02-18-2025 History of Present illness Narrative* Jeana [...] exertion heart rate elevated and irregular Blessing I Wereley is a 82 year old female who [...] tried Gordy Coughlinri for the atypical stropping forvenous insufficiency. Dr [...] and unspecified hyperlipidemia PVD (peripheral vascular disease) ([facility]) Special screening for malignant neoplasms, colon 12/12/2014 Type II or unspecified type diabetes mellitus without mention of complication, not stated as uncontrolled 1992 Unspecified hypothyroidism 1969 PAST SURGICAL HISTORY Procedure Laterality Date ARTHRP ACETBLR/PROX FEM PROSTC AGRFT/ALGRFT 2003 right ARTHRP ACETBLR/PROX FEM PROSTC AGRFT/ALGRFT 02/2012 [...] sentinel node biopsy - Dr. Reynolds - [facility] PAST SURGICAL HISTORY OF Right 02/20/2013 Right TKA REVISE MEDIAN N/CARPAL TUNNEL SURG Right [facility]? FAMILY HISTORY Problem Relation Age of Onset [...] acetonide (NASACORT) 55 mcg nasal inhaler Insulin [place], Disposable, (BD ULTRA-FINE MARCELO PEN NEEDLE) 32 [...] ER Jeana Guerra MD [facility]25 NoteHNO ID: [id number] Author: MAC CESPEDES MD Service: ? Author Type: Physician Type: [...] tablet by mouth daily at bedtime. Insulin [place], Disposable, (BD ULTRA-FINE MARCELO PEN NEEDLE) 32 [...] throat if postnasal drainage persists. Mac Cespedes [facility]02-01-2025 History of Present illness Narrative* Mac Cespedes [...] tablet by mouth daily at bedtime. Insulin [place], Disposable, (BD ULTRA-FINE MARCELO PEN NEEDLE) 32 [...] persists. Mac Cespedes MD [facility] Telephone encounter Note * Telephone Encounter - Laura Victoria LPN - 12/17/2024 4:53 PM EST Spoke with pt and information listed below given. Pt verbalizes understanding. Laura Victoria LPN [facility]01-27-2025 Miscellaneous Notes* Telephone Encounter - Laura [...] went over notes below from Greta Arreola AUTO BODY MECHANIC. Patient said she has 4 weeks of [...] with her victoza? Thank you Greta Arreola APRN.PAINT PREP TECHNICIAN * Telephone Encounter - Elenita Ponce RN [...] RN - 12/12/2024 3:29 PM EST [employer] calls with patient to notify of below. Let patient and sales representative trainee know that request is pending provider review. If provider would like to appeal for Victoza instead of changing to formulary prescription phone number is [phone]. Elenita Ponce RN * Telephone Encounter - [...] or Trulicity. This decision was from the [employer] NonPreferred GLP-1 Agonists and GLP-1/GIP Agonists Pharmacy Coverage Policy at [employer]. * Telephone Encounter - Michelle Medeiros LPN [...] or Trulicity. This decision was from the [employer] Non-Preferred GLP-1 Agonists and GLP-1/GIP Agonists Pharmacy Coverage Policy at [employer]. Payer: [facility] [phone] Notes Time User Attachment Attachment received from payer. 12/11/2024 4:02 PM Cchs, Rx Priorauth In Document Waiting for Payer Response 12/11/2024 12:19 PM Deadline to reply: December 26, 2024 Sending user: Michelle Medeiros LPN Note to payer: Pt is 84 year old stable with current DM treatment. See office notes and A1c results. Payer: [employer] [phone] Attachment: Document: ePA Attachment liraglutide (VICTOZA) 0.6 mg/ 0.1 ml subcutaneous pen injector 12/11/2024-12:18 PM Nonpreferred [employer]1 Agonists MPA Standard Prior Auth [facility]25 Telephone encounter Note * Telephone Encounter - Mckayla Card RN - 12/17/2024 4:37 PM EST Called and left a voicemail for the Patient to call back and ask for a nurse to receive the providers message. Mckayla Card, RN [facility]01-27-2025 Telephone encounter Note* Telephone Encounter - [...] increase the dose. Thank you Greta Arreola APRN.CNP [facility]01-24-2025 Telephone encounter Note* Telephone Encounter - Sharon Hadley LPN - 12/14/2024 3:13 PM EST Patient returned call and went over notes below from Greta Arreola AUTO BODY MECHANIC. Patient said she has 4 weeks of victoza at home. She wants to know what Greta thinks if she should finish it ? She is also asking if she should still be taking the Coricidin HBP soft gels with the Fluticasone nasal spray? [facility]01-24-2025 Telephone encounter Note* Telephone Encounter - Isabel Lagos LPN - 12/14/2024 10:22 AM EST Called and left message for patient to call office back for update of note below. Isabel Lagos LPN December 14, 2024 10:22 AM [facility]01-24-2025 Telephone encounter Note* Telephone Encounter - Greta Arreola APRN.CNP - 12/14/2024 9:53 AM EST Yes the fluticasone nasal spary is fine to start. 2 sprays each nostril before bed. Rinse out your throat after use. Does she want to start ozempic now or wait until finished with her victoza? Thank you Greta Arreola APRN.PAINT PREP TECHNICIAN [facility]01-23-2025 Telephone encounter Note* Telephone Encounter - Elenita [...] or any respiratory symptoms. Elenita Ponce RN [facility]01-23-2025 Telephone encounter Note* Telephone Encounter - Sheela De Santiago OCCA - 12/13/2024 9:50 AM EST TC no answer. Left VM to return call. ZANE Dominguez [facility]01-22-2025 Telephone encounter Note* Telephone Encounter - Jeana Guerra MD - 12/12/2024 6:22 PM EST It is great that she is offered ozempic, would the patient like to try that? Would be easier for her Regards, Jeana Guerra MD [facility]01-22-2025 Telephone encounter Note* Telephone Encounter - Elenita Ponce RN - 12/12/2024 3:29 PM EST [employer] calls with patient to notify of below. Let patient and sales representative trainee know that request is pending provider review. If provider would like to appeal for Victoza instead of changing to formulary prescription phone number is [phone]. Elenita Ponce RN [facility]01-21-2025 Telephone encounter Note* Telephone Encounter - [...] or Trulicity. This decision was from the [employer] NonPreferred GLP-1 Agonists and GLP-1/GIP Agonists Pharmacy Coverage Policy at [employer]. [facility]01-21-2025 Telephone encounter Note* Telephone Encounter - [...] or Trulicity. This decision was from the [employer] Non-Preferred GLP-1 Agonists and GLP-1/GIP Agonists Pharmacy Coverage Policy at [employer]. Payer: [employer] [phone] Notes Time User Attachment Attachment received from payer. 12/11/2024 4:02 PM Cchs, Rx Priorauth In Document Waiting for Payer Response 12/11/2024 12:19 PM Deadline to reply: December 26, 2024 Sending user: Michelle Medeiros LPN Note to payer: Pt is 84 year old stable with current DM treatment. See office notes and A1c results. Payer: [employer] [phone] Attachment: Document: ePA Attachment liraglutide (VICTOZA) 0.6 mg/ 0.1 ml subcutaneous pen injector 12/11/2024-12:18 PM Nonpreferred [employer]1 Agonists MPA Standard Prior Auth [facility]11-27-[facility] Telephone encounter Note* Telephone Encounter - Betsy Abad RN - 10/17/2024 1:03 PM EST Form signed, faxed back to [employer] with positive confirmation, and placed in scanning. [facility]11-27-2024 Miscellaneous Notes* Telephone Encounter - Betsy Abad RN - 10/17/2024 1:03 PM EST Form signed, faxed back to [employer] with positive confirmation, and placed in scanning. * Telephone Encounter - Betsy Abad RN - 10/15/2024 9:29 AM EST Received Letter of Medical Necessity form from [employer]. Placed in Warren's folder for completion. * Telephone Encounter - Olena Escobar RN - 09/27/2024 9:19 AM EST ----- Message ----- From: Adrian Jeong APRN-PAINT PREP TECHNICIAN Sent: 09/26/2024 4:46 PM EST To: Olena Escobar RN Note updated and refaxed to [phone] * Telephone Encounter - Susana Rogers - 09/26/2024 10:52 AM EST Received call from Allison with [employer]. States for lymphedema pump they are needing filled conservative therapy for 4 weeks, compression elevation exercise, and most recent office visit note. Callback [phone] ext [phone] * Telephone Encounter - Betsy Abad RN - 09/17/2024 8:08 AM EDT Pump order faxed along with demographics page and NURIS note to [employer] with positive confirmation, and placed in scanning. [facility] encounter[facility] Telephone encounter Note* Telephone Encounter - Betsy Abad RN - 10/15/2024 9:29 AM EST Received Letter of Medical Necessity form from [employer]. Placed in Warren's folder for completion. [facility]11-25-2024 Miscellaneous Notes* Telephone Encounter - Betsy Abad RN - 10/15/2024 9:29 AM EST Received Letter of Medical Necessity form from [employer]. Placed in Adrian's folder for completion. * Telephone Encounter - Olena Escobar RN - 09/27/2024 9:19 AM EST ----- Message ----- From: MARY Martinez Sent: 09/26/2024 4:46 PM EST To: Olena Escobar RN Note updated and refaxed to [phone] * Telephone Encounter - Susana Rogers - 09/26/2024 10:52 AM EST Received call from Allison with [employer]. States for lymphedema pump they are needing filled conservative therapy for 4 weeks, compression elevation exercise, and most recent office visit note. Callback [phone] ext [phone] * Telephone Encounter - Betsy Abad RN - 09/17/2024 8:08 AM EDT Pump order faxed along with demographics page and NURIS note to [employer] with positive confirmation, and placed in scanning. documented in this encounter[facility] Miscellaneous Notes* Telephone Encounter - Betsy Abad RN - 10/15/2024 9:29 AM EST Received Letter of Medical Necessity form from [employer]. Placed in Warren's folder for completion. * Telephone Encounter - Olena Escobar RN - 09/27/2024 9:19 AM EST ----- Message ----- From: MARY Martinez Sent: 09/26/2024 4:46 PM EST To: Olena Escobar RN Note updated and refaxed to [phone] * Telephone Encounter - Susana Rogers - 09/26/2024 10:52 AM EST Received call from Allison with [employer]. States for lymphedema pump they are needing filled conservative therapy for 4 weeks, compression elevation exercise, and most recent office visit note. Callback [phone] ext [phone] * Telephone Encounter - Betsy Abad RN - 09/17/2024 8:08 AM EDT Pump order faxed along with demographics page and NURIS note to [employer] with positive confirmation, and placed in scanning. documented in this encounterOSChildren[facility]11-21-2024 Instructions* Patient Instructions* Miranda De - 10/11/2024 [...] (or decreased sensation in your feet) a ship mate should always cut your toenails. Be Careful [...] Go to your health care provider or ship mate to treat these conditions. [facility] History of Present illness Narrative* Miranda [...] has history of ingrowns and is tender. [facility] 03/30/24 documented in this encounterSt. [facility] Hospital11-21-2024 NoteHNO ID: [id number] Author: MIRANDA DE, ? Service: ? Author [...] to RTC in 3-4 months. Miranda De [facility]11-21-2024 NoteHNO ID: [id number] Author: MCKAYLA AYALA RN Service: ? Author Type: Registered Nurse Type: Progress Notes Filed: 10/11/2024 15:13 Note Text: Patient presents with: Left Foot - Established Patient, Follow Up, Diabetic Foot Care Right Foot - Established Patient, Follow Up, Diabetic Foot Care Patient presents for follow up diabetic foot/nail care. Right big toe has history of ingrowns and is tender. [facility]IS 03/30/24[facility]11-[facility] Telephone encounter Note* Telephone Encounter - [...] Doty RN October 05, 2024 3:[address] [facility]11-15-2024 Miscellaneous Notes* Telephone Encounter - Sarita [...] 05, 2024 3:14 PM documented in this encounterSt. [facility]11-07-2024 Telephone encounter Note * Telephone Encounter - Olena Escobar RN - 09/27/2024 9:19 AM EST ----- Message ----- From: Adrian Jeong APRN-GIL Sent: 09/26/2024 4:46 PM EST To: Olena Escobar RN Note updated and refaxed to [phone] [facility] Telephone encounter Note* Telephone Encounter - Susana Rogers - 09/26/2024 10:52 AM EST Received call from [employer] with [employer]. States for lymphedema pump they are needing filled conservative therapy for 4 weeks, compression elevation exercise, and most recent office visit note. Callback [phone] ext [phone] [facility]11-06-2024 Miscellaneous Notes* Telephone Encounter - Susana Rogers - 09/26/2024 10:52 AM EST Received call from [employer] with [employer]. States for lymphedema pump they are needing filled conservative therapy for 4 weeks, compression elevation exercise, and most recent office visit note. Callback [phone] ext [phone] * Telephone Encounter - Betsy Abad RN - 09/17/2024 8:08 AM EDT Pump order faxed along with demographics page and NURIS note to [employer] with positive confirmation, and placed in scanning. documented in this encounterOhioHealth [facility]11-05-2024 NoteHNO ID: [id number] Author: GLORIA DOAN MA Service: ? Author Type: Head Cd Reactor Operator Type: Progress Notes Filed: 09/25/2024 11:13 Note Text: POPULATION HEALTH NAVIGATION OUTREACH Action/I msg to schedule wellness, diabetic retinal eye exam Reason for Outreach Care Gap/HCC or Scheduling Wellness Visits Care Gaps due: Medicare Annual Wellness Visit Diabetic Eye Exam Patient Contacted: Unable or unnecessary to reach patient: Left message BuildDirect message sent Navigation Signature: Gloria Doan MA September 25, 2024 11:12 [facility]11-05-2024 History of Present illness Narrative* Gloria Doan MA - 09/25/2024 11:12 AM EST POPULATION HEALTH NAVIGATION OUTREACH Action/FYI msg to schedule wellness, diabetic retinal eye exam Reason for Outreach Care Gap/HCC or Scheduling Wellness Visits Care Gaps due: Medicare Annual Wellness Visit Diabetic Eye Exam Patient Contacted: Unable or unnecessary to reach patient: Left message BuildDirect message sent Navigation Signature: Gloria Doan MA September 25, 2024 11:12 AM documented in this encounterSt. [facility]11-05-2024 NotePatient Outreach ([employer]) BLESSING JACKSON I ([id number]) 1940 F Date Time Provider Department 09/25/24 [...] or unnecessary to reach patient: Left message BuildDirect message sent Navigation Signature: Gloria Doan MA [...] Visit: Population Health Navigation Outreach [3910] Cmt: Mauricio lema Prescriptions as of 09/25/2024 - fluticasone (FLONASE) [...] by mouth daily at bedtime. - Insulin [place], Disposable, (BD ULTRA-FINE MARCELO PEN NEEDLE) 32 gauge x 532 USE ONE NEEDLE FOR EACH DOSE ONCE [...] 04/19/2023 Encounter Status:Closed by GLORIA DOAN on 09/25/24[facility] 09-17-2024 Telephone encounter Note* Telephone Encounter - Betsy Abad RN - 09/17/2024 8:08 AM EDT Pump order faxed along with demographics page and NURIS note to [employer] with positive confirmation, and placed in scanning. [facility]10-21-2024 History of Present illness Narrative* Adrian Jeong APRN-PAINT PREP TECHNICIAN - 09/10/2024 2:00 PM EDT Blessing Jackson is a 83 y.o. female who was seen on 09/10/2024 for evaluation of: Lipodermatosclerosis Last seen 01/24/23 Interval History LE Symptoms: Left >> Right lower extremity swelling, discoloration, pain, and hardness. Feet to calves Developed drainage from her legs after her last office visit while she was [place] Her PCP put her on Cipro She [...] ontains abnormal data COMPREHENSIVE METABOLIC PANEL Order: [id number] Component Ref Range & Units 8 d [...] left/negative on right Hyperkeratosis/cutaneous fibrosis: Y BL spkn-umlvtdw-wwbk-right Excessive local fat deposition: N Left toes [...] BL Leg ulcerations: N BL Panniculitis/lipodermatosclerosis:Y BL vymg-lpnfccw-gbau-right. Tinea pedis: N Impression 1. Bilateral lower [...] currently healed on today's exam Plan 1. custodial pentoxifylline 400 mg with meals to reduce [...] sooner if needed documented in this encounterOSU [facility]10[facility] History of Present illness Narrative* MARY Martinez - 09/10/2024 2:00 PM EDT Blessing Jackson is a 83 y.o. female who was seen on 09/10/2024 for evaluation of: Lipodermatosclerosis Last seen 01/24/23 Interval History LE Symptoms: Left >> Right lower extremity swelling, discoloration, pain, and hardness. Feet to calves Developed drainage from her legs after her last office visit while she was in [place] in a remote location in the [facility] Her PCP put her on [...] ontains abnormal data COMPREHENSIVE METABOLIC PANEL Order: [id number] Component Ref Range & Units 8 d [...] breast Diabetes mellitus History of radiation therapy 2008 Right breast DCIS Hypertension Malignant neoplasm of [...] left/negative on right Hyperkeratosis/cutaneous fibrosis: Y BL qbiz-gsrdrxs-lith-right Excessive local fat deposition: N Left toes [...] BL Leg ulcerations: N BL Panniculitis/lipodermatosclerosis:Y BL sbda-piwvlhq-gfxi-right. Tinea pedis: N Impression 1. Bilateral lower [...] currently healed on today's exam Plan 1. custodial pentoxifylline 400 mg with meals to reduce [...] or sooner if needed documented in this encounterU [facility] Telephone encounter Note* Telephone Encounter - Tomeka Santiago RN - 09/10/2024 12:47 PM EDT Pt returned call and given provider's message below with verbalized understanding. [facility]10-21-2024 Miscellaneous Notes* Telephone Encounter - Tomeka [...] Regards, Jeana Guerra MD documented in this encounterSt. Francis Hospital10-21-2024 History of Present illness Narrative* Nallely [...] , d/t neuropathy. Patient offered a medical air box tester for sensitive exam. Patient declined air box tester. * Amy Carreon, M[employer] AUTHOR-PAINT PREP TECHNICIAN - 09/10/2024 12:00 PM EDT Date of Service: 09/10/2024 History of Present Illness: Chief Complaint Patient presents with Follow-up One year follow up with imaging. Blessing Jackson is a 83 y.o. post-menopausal female who presents to the [facility] on 09/10/24 for follow-up [...] Clement with annual mammogram. documented in this [facility]10-21-2024 History of Present illness Narrative* Thea Philip - 09/10/2024 11:00 AM EDT Patient offered a medical air box tester for sensitive exam. Pt declined documented in this [facility]10-19-2024 Telephone encounter Note* Telephone Encounter - Sharon Hadley LPN - 09/08/2024 10:07 AM EDT Phoned patient left message to return call and ask to speak to a nurse. [facility]10-19-2024 Telephone encounter Note* Telephone Encounter - Sharon Hadley LPN - 09/08/2024 10:05 AM EDT ----- Message from Jeana Guerra MD sent at 09/07/2024 5:35 PM EDT ----- No major concerns with your labs they look stable.' Regards, Jeana Guerra MD [facility]10-10-2024 NoteHNO ID: [id number] Author: JEANA GUERRA MD Service: ? Author Type: Physician Type: Progress Notes Filed: 08/30/2024 17:22 Note Text: Reason for Visit Patient presents with: F/U 6 months: Bilateral legs wounds, seen in [place], better now, usually sees Dr Carlos Shaw [...] tried Gordy Kolluri for the atypical stropping for venous insufficiency. [...] Laterality Date ARTHRP ACETBLR/PROX FEM PROSTC AGRFT/ALGRFT 2003 right ARTHRP ACETBLR/PROX FEM PROSTC AGRFT/ALGRFT 02/2012 [...] sentinel node biopsy - Dr. Reynolds - [facility] PAST SURGICAL HISTORY OF Right 02/20/2013 Right TKA REVISE MEDIAN N/CARPAL TUNNEL SURG Right [facility]? FAMILY HISTORY Problem Relation Age of Onset [...] tablet simvastatin (ZOCOR) 20 mg tablet Insulin [place], Disposable, (BD ULTRA-FINE MARCELO PEN NEEDLE) 32 gauge x 5/32 diosmin complex no.1 (VASCULER (more content not included)...[facility]10-10-2024 History of Present illness Narrative* Jeana Guerra MD - 08/30/2024 3:05 PM EDT Reason for Visit Patient presents with: F/U 6 months: Bilateral legs wounds, seen in [place], better now, usually sees Dr Carlos Shaw [...] tried Gordy Carlton for the atypical stropping forvenous insufficiency. Dr [...] and unspecified hyperlipidemia PVD (peripheral vascular disease) ([facility]LY [facility]) Special screening for malignant neoplasms, colon 12/12/2014 [...] REVISE MEDIAN N/CARPAL TUNNEL SURG Right [facility] - 2019? FAMILY HISTORY Problem Relation Age [...] tablet simvastatin (ZOCOR) 20 mg tablet Insulin [place], Disposable, (BD ULTRA-FINE MARCELO PEN NEEDLE) 32 [...] that. Jeana Guerra MD documented in this encounterSt. [facility] Hospital08-13-2024 Telephone encounter Note * Telephone Encounter [...] Card RN July 03, 2024 12:[address] [facility]08-13-2024 Miscellaneous Notes* Telephone Encounter - Mckayla [...] 03, 2024 12:38 PM documented in this encounterSt. Francis Hospital05-23-2024 History of Present illness Narrative* Greta Arreola APRN.PAINT PREP TECHNICIAN - 04/12/2024 8:23 AM EDT CC: Patient [...] and unspecified hyperlipidemia PVD (peripheral vascular disease) ([facility]) Special screening for malignant neoplasms, colon 12/12/2014 [...] REVISE MEDIAN N/CARPAL TUNNEL SURG Right [facility] - 2019? ALLERGIES Lovenox [Enoxaparin Sodium], Oxycontin [...] tablet by mouth daily at bedtime. Insulin [place], Disposable, (BD ULTRA-FINE MARCELO PEN NEEDLE) 32 [...] 11/21/2023 Covid-19 Vaccine( season) due on 12/19/2023 DTaP,Tdap,Td Vaccine(2 - [...] up in August [place] - will continue to check BP and call if consistently greater than 140/80 Prescription instructions reviewed with patient as applicable. Potential red flag symptoms discussed with the patient. Reviewed appropriate action plan to take if red flag symptoms occur. Patient agreeable to treatment plan. Greta Arreola APRN.GLI documented in this encounterSt. Francis Hospital05-15-2024 History of Present illness Narrative* [place] [...] prn [place] Escobar PA-C documented in this encounterSt. Francis Hospital05-10-2024 History of Present illness Narrative* Miranda [...] Objective: Patient presents to clinic ambulating in [facility] Vasc: DP and PT pulses are [...] Patient, Diabetic Foot Care documented in this encounterSt. Francis Hospital05-09-2024 History of Present illness Narrative* Elizabeth Jackson MA - 03/29/2024 11:30 AM EDT BP Manual readin/70 Pulse: 66 LEFT arm REGULAR cuff BP Jeffery Average: 168/77 Pulse: 58 LEFT arm REGULAR cuff 1. 168/82 Pulse: 53 2. 164/79 Pulse: 60 3. 170/71 Pulse: 54 4. 168/80 Pulse: 60 BP JEFFERY AVERAGE: 168/77 Pulse: 58 * Greta Arreola APRN.PAINT PREP TECHNICIAN - 03/29/2024 11:06 AM EDT CC: Patient presents with: F/U 6 Month HPI Blessing Jackson is a 83 year old female who presents today for routine follow up prior to leaving to go to her [facility] for the summer. HTN and HLD: Ms. [...] TKA REVISE MEDIAN N/CARPAL TUNNEL SURG [facility] - [facility]? ALLERGIES Lovenox [Enoxaparin Sodium], Oxycontin [...] tablet by mouth daily at bedtime. Insulin [place], Disposable, (BD ULTRA-FINE MARCELO PEN NEEDLE) 32 [...] - PEN NEEDLE, DIABETIC 32 GAUGE X 4. Hypothyroidism, adult - ICD9: 244.9, ICD10: [...] plan. Greta Arreola APRN.CNP documented in this encounterSt. Francis Hospital04-10-2024 History of Present illness Narrative* Yee Lema, BASIL - 02/29/2024 1:41 PM EDT ORTH CARE [...] day. Yee Lema RN documented in this encounterSt. Francis Hospital03-08-2024 History and physical note * Samuel [...] of cancer of right breast Assessment: DCIS 2009, s/p right lumpectomy and radiation Lipodermatosclerosis Assessment: [...] large neck Non-male patient STOP-Bang Score: 3 [id number] Score: Age: >=75 Sex: female CHF history: No Hypertension history: Yes Stroke/TIA/thromboembolism history: No Vascular disease history: Yes Diabetes history: Yes [id number] Score: 6 ARISCAT Score: Age: >80 Preoperative [...] Imm Admin: COVID-19 vaccine, age 12+ yr, season (MODERNA) 02/18/2022 Imm Admin: COVID-19 original [...] manage symptoms. Procedure scheduled on 02/14/2024 at [facility]. REVIEW OF SYSTEMS: General: No weight loss, malaise or fevers. Neurological: No history of TIA's, stroke, VERTICAL PUNCH OPERATOR tumor, impaired sensorium, hemiplegia, paraplegia orquadraplegia. No [...] > 1 time per night or hematuria. SURVEILLANCE ANALYST: Negative for abnormal vaginal bleeding, abnormal vaginal [...] sentinel node biopsy - Dr. Reynolds - [facility] PAST SURGICAL HISTORY OF Right 02/20/2013 Right TKA REVISE MEDIAN N/CARPAL TUNNEL SURG Right [facility]? FAMILY HISTORY Problem Relation Age of Onset [...] by mouth once daily. Taking Yes Insulin [place], Disposable, (BD ULTRA-FINE MARCELO PEN NEEDLE) 32 [...] or any previous visit (from the past 77965 hour(s)). The Following Tests/Procedures Have Been Initiated: [...] 11:15 AM PAGER/CONTACT #: documented in this encounterSt. Francis Hospital03-08-2024 Instructions* Patient Instructions* Samuel Harman PA-C - 01/27/2024 1:30 PM EST PATIENT PREOPERATIVE INSTRUCTIONS Grady Wells MD, PhD has scheduled you for your procedure at this surgery center: [facility]: [phone] --[id number] [place] [address]. Please read below carefully for your personalized [...] Procedures: - YOU MUST HAVE A RESPONSIBLE INSPECTOR QUALITY ASSURANCE TAKE YOU HOME. A FLOWER CUTTER OR TUNNEL ELASTIC OPERATOR CHAINSTITCH CANNOT BE MADE A RESPONSIBLE INSPECTOR QUALITY ASSURANCE. - We recommend that a responsible person stays with you overnight to take care of you. - You cannot stay in a hotel alone after outpatient surgery. You will not be permitted to have yoursurgery, if you do not have someone to take care of you. If you already have an Advance Directive, please fax a copy to [phone] or email to for it to be [...] day. Samuel Harman PA-C documented in this encounterSt. Francis Hospital02-13-2024 Miscellaneous Notes* Telephone Encounter - Valerie Hester LPN - 01/03/2024 1:18 PM EST Patient [...] care: 03/29/2024 Please advise. Thank you. Valerie Hester LPN. * Telephone Encounter - Radha Serrato [...] Thank you. Radha Serrato. documented in this encounterSt. Francis Hospital01-17-2024 History of Present illness Narrative* Reba [...] IV DATA: Not applicable SIGNED BY: RT Cherrie(R) December 07, 2023 1:58 PM documented in this encounterSt. Francis Hospital11-09-2023 History of Present illness Narrative* Greta Arreola APRN.GIL - 09/29/2023 10:16 AM EST CC: Patient [...] left BX BREAST PERC VACUUM/ROTN Right COLONOSCOPY 2003 COLONOSCOPY FLX DX W/COLLJ SPEC WHEN PFRMD [...] 2 tablets by mouth once daily. Insulin [place], Disposable, (BD ULTRA-FINE MARCELO PEN NEEDLE) 32 [...] Patient agreeable to treatment plan. Greta Arreola APRN.GIL documented in this encounterSt. Francis Hospital10-23-2023 Miscellaneous Notes* Telephone Encounter - Mckayla Card RN - 09/12/2023 10:49 AM EDT Pt states she has not received this yet from her mail in pharmacy. Sent short term supply to local pharmacy. Let Pt know to call mail in pharmacy to check on medication. Patient has been identified by name and date of : Yes, Provider Dr Guerra Date 09/12/23 Time [id number]. Patient phones for refill(s): Requested Prescriptions Pending [...] you. Mckayla Card RN. documented in this encounterSt. Francis Hospital10-20-2023 Instructions* Patient Instructions* Miranda De - [...] (or decreased sensation in your feet) a ship mate should always cut your toenails. Be Careful [...] Go to your health care provider or ship mate to treat these conditions. documented in this encounterSt. Francis Hospital10-20-2023 History of Present illness Narrative* Miranda [...] months. Miranda De DPM documented in this encounterSt. Francis Hospital10-16-2023 History of Present illness Narrative* Adrian Jeong, EPI-PAINT PREP TECHNICIAN - 09/05/2023 2:30 PM EDT Blessing Jackson [...] Duration of Lymphedema: Left age 17 Right 2007 Family hx of Lymphedema: N Recurrent nocturnal [...] breast Diabetes mellitus History of radiation therapy 2008 Right breast DCIS Hypertension Malignant neoplasm of [...] left/negative on right Hyperkeratosis/cutaneous fibrosis: Y BL winp-rkobkfv-kwlk-right Excessive local fat deposition: N Left toes [...] BL Leg ulcerations: N BL Panniculitis/lipodermatosclerosis:Y BL uaac-vjrwapq-eaim-right. Tinea pedis: N Impression 1. Bilateral lower [...] dysfunction 7. Left carotid bruit-asymptomatic Plan 1. buttermaker continuous churn pentoxifylline 400 mg with meals to reduce venous inflammation 2. As noted above, she is unable to self apply tight gradient compression stockings [nor is anyone available to assist]. Suggested trying a zippered variety and increase to 20-30 mm Hg if tolerated. 3. Try to increase activity/ambulation in order to activate calf (and thigh) muscle pumps. 4. She will see Dr. Gordy Carlton [facility] who can perform a reflux mapping study [...] sooner if needed documented in this encounterOSU [facility]10-16-2023 History of Present illness Narrative* Silvia Munguia - 09/05/2023 11:00 AM EDT Patient offered a medical air box tester for sensitive exam. Pt declined documented in this encounterOSU [facility]05-30-2023 History of Present illness Narrative* Miranda De [...] time. No other concerns. documented in this encounterSt. Francis Hospital05-30-2023 Instructions* Patient Instructions* Miranda De - [...] (or decreased sensation in your feet) a ship mate should always cut your toenails. Be Careful [...] Go to your health care provider or ship mate to treat these conditions. documented in this encounterSt. Francis Hospital04-14-2023 Miscellaneous Notes* Telephone Encounter - Sean Pang Ma - 03/04/2023 4:22 PM EDT Mailed as requested. * Telephone Encounter - Tomeka aSntiago RN - 03/03/2023 10:04 AM EDT Patient reports her handicap junito will in March. Asking if pcp would write a new one and mail to her via [employer]. Address verified. documented in this encounterSt. Francis Hospital03-06-2023 History of Present illness Narrative* Aubrey Kelley, - 01/24/2023 11:00 AM EST Blessing Jackson is a 82 y.o. female who was seen in consultation at the [facility] per your request on 01/24/2023 for evaluation [...] 2008 Hypertension Malignant neoplasm of female breast 2008 Right breast DCIS Radiation therapy 03/2009 right [...] left/negative on right Hyperkeratosis/cutaneous fibrosis: Y BL phzn-nhwjzaq-xcqg-right Excessive local fat deposition: N Left toes [...] BL Leg ulcerations: N BL Panniculitis/lipodermatosclerosis:Y BL bpkd-jddyeir-rtrb-right Tinea pedis: N IMPRESSION: 1. Bilateral lower [...] syndrome 8. Left carotid bruit-asymptomatic PLAN: 1. custodial pentoxifylline 400 mg with meals to reduce [...] of referring her to my colleague at [facility] Dr. Gordy Carlton who can perform a [...] EST Per Dr. Kelley's written order # [id number], Blessing Jackson received 15 day samples of Vasculera 630mg tablets (1 boxes of 15 count each). Blessing Jackson was instructed to take One (1) tablet dailyfor 15 days. Blessing Jackson also received a copy of Dr. Kelley written order. Blessing Jackson signed a copy of the written order to be scanned to the chart. Blessing Jackson verbally acknowledges the instructions and denies any Questions. Lot #: [id number] Exp: 07/2025 documented in this encounterOhio[facility]03-06-2023 Instructions* Patient Instructions* Aubrey Kelley DO - 01/24/2023 11:00 AM EST 15-20 mmHg zippered compression stockings Please notify Dr Kelley in 2 weeks regarding response to trial of Vasculera. Any improvement in leg pain and/or swelling? Any improvement with Pramipexole? documented in this encounterOhioHealth [facility]01-13-2023 History of Present illness Narrative* Miranda De - 12/03/2022 3:23 PM EST Last saw [...] Care Dori Schmitz LPN documented in this encounterSt. Francis Hospital01-13-2023 Instructions* Patient Instructions* Miranda De - [...] (or decreased sensation in your feet) a ship mate should always cut your toenails. Be Careful [...] Go to your health care provider or ship mate to treat these conditions. documented in this encounterSt. Francis Hospital01-10-2023 Miscellaneous Notes* Telephone Encounter - Laura Victoria LPN - 11/30/2022 3:16 PM EST Left a detailed message for pt with information listed below. Laura Victoria LPN * Telephone Encounter - Greta Arreola APRN.CNP - 11/29/2022 6:54 PM EST Fasting lab orders placed. Meds refilled. Please let patient know. Thank you Greta Arreola APRN.GIL * Telephone Encounter - Laura Victoria LPN [...] you. Laura Victoria LPN documented in this encounterSt. Francis Hospital01-06-2023 Miscellaneous Notes* Telephone Encounter - Emilie [...] planning on coming in. documented in this encounterSt. Francis Hospital12-08-2022 History of Present illness Narrative* Jeana [...] tablet amLODIPine (NORVASC) 2.5 mg tablet Insulin [place], Disposable, (BD ULTRA-FINE MARCELO PEN NEEDLE) 32 gauge x 5/32 lisinopril (ZESTRIL, PRINIVIL) 40 mg tablet levothyroxine [...] TABLET Jeana Guerra MD documented in this encounterSt. Francis Hospital12-02-2022 Miscellaneous Notes* Telephone Encounter - Valerie Teran [...] Has upcoming appt, needs sent to local [facility] as she is getting low. RX INSTRUCTIONS: Patient aware RX will be sent to pharmacy. No need to notify patient. Patient phones requesting refills as follows: Requested Prescriptions Pending Prescriptions Disp Refills simvastatin (ZOCOR) 20 mg tablet 90 tablet 3 Sig: Take 1 tablet by mouth daily at bedtime. Please review and advise. Rhoda Shearer documented in this encounterSt. Francis Hospital11-11-2022 Miscellaneous Notes* Telephone Encounter - SALIMA [...] she was advised at a centre in [place] about venous ablation and we were wondering what your thoughts would be on that and if that is something that is being done nowadays Would you like see her for consult. Regards, Jeana Guerra MD documented in this encounterSt. Francis Hospital10-10-2022 History of Present illness Narrative* Julianna Blake - 08/30/2022 12:40 PM EDT Patient offered a medical air box tester for sensitive exam. Pt declined documented in this encounterOSU [facility]08-09-2022 Miscellaneous Notes* Telephone Encounter - Michelle Medeiros LPN - 06/29/2022 3:10 PM EDT Last seen pcp 03/22/22. Next appt with pcp * Telephone Encounter - Stacey Victoria Pss - 06/29/2022 12:48 PM EDT Please contact patient when this has been sent to pharmacy. Contact [phone] Stacey Victoria Pss documented in this encounterSt. Francis Hospital05-18-2022 Miscellaneous Notes* Telephone Encounter - Praveena Reyes Ma - 04/07/2022 12:54 PM EDT Patient notified. * Telephone Encounter - Greta Arreola APRN.CNP - 04/07/2022 12:29 PM EDT Please let patient know that I have sent in the prescription as requested to [facility] in [place]. Thank you Greta Arreola APRN.PAINT PREP TECHNICIAN * Telephone Encounter - Mckayla Card RN - 04/07/2022 12:13 PM EDT Pt called and is notified of providersmessage. Pt reports the antibiotic is Cipro. She states she and her go up to their house in the [facility] for the summer and it [...] takes with her when [facility]. Please send to mail order pharmacy. Freida Healy LPN documented in this encounterSt. Francis Hospital05-17-2022 History of Present illness Narrative* Freida [...] PCP. Freida Healy LPN documented in this encounterSt. Francis Hospital05-10-2022 History of Present illness Narrative* Miranda Moseskatharina - 03/30/2022 10:40 AM EDT Last saw [...] Patient, Diabetic Foot Care documented in this encounterSt. Francis Hospital05-02-2022 History of Present illness Narrative* Jeana [...] and unspecified hyperlipidemia PVD (peripheral vascular disease) ([facility]) Special screening for malignant neoplasms, colon 12/12/2014 Type II or unspecified type diabetes mellitus without mention of complication, not stated as uncontrolled 1992 Unspecified hypothyroidism 1970 PAST SURGICAL HISTORY Procedure Laterality Date ARTHRP ACETBLR/PROX FEM PROSTC AGRFT/ALGRFT 2003 right ARTHRP ACETBLR/PROX FEM PROSTC AGRFT/ALGRFT 02/2012 [...] sentinel node biopsy - Dr. Reynolds - [facility] PAST SURGICAL HISTORY OF Right 02/20/2013 Right [...] tablet amLODIPine (NORVASC) 2.5 mg tablet Insulin [place], Disposable, (BD ULTRA-FINE MARCELO PEN NEEDLE) 32 [...] - PEN NEEDLE, DIABETIC 32 GAUGE X 5/32 - CONSULT TO PODIATRY 3. Acquired hypothyroidism [...] Stable Jeana Guerra MD documented in this encounterSt. Francis Hospital11-09-2021 History of Past illness Narrative* Problem Noted Date Resolved Date Right wrist pain 09/29/2021 03/18/2022 Carpal tunnel syndrome on right 04/13/2018 05/28/2020 Overview: Added automatically from request for surgery [id number] Morbid obesity with BMI of 40.0-44.9, adult [...] of this encounter (statuses as of 03/22/2022) [facility] History of Past illness Narrative* Problem Noted Date Resolved Date Right wrist pain 09/29/2021 03/18/2022 Carpal tunnel syndrome on right 04/13/2018 05/28/2020 Overview: Added automatically from request for surgery [id number] Morbid obesity with BMI of 40.0-44.9, adult [...] of this encounter (statuses as of 03/30/2022) [facility] History of Past illness Narrative* Problem Noted Date Resolved Date Right wrist pain 09/29/2021 03/18/2022 Carpal tunnel syndrome on right 04/13/2018 05/28/2020 Overview: Added automatically from request for surgery [id number] Morbid obesity with BMI of 40.0-44.9, adult [...] of this encounter (statuses as of 04/06/2022) [facility] of Past illness Narrative* Problem Noted Date Resolved Date Right wrist pain 09/29/2021 03/18/2022 Carpal tunnel syndrome on right 04/13/2018 05/28/2020 Overview: Added automatically from request for surgery [id number] Morbid obesity with BMI of 40.0-44.9, adult [...] of this encounter (statuses as of 04/07/2022) [facility] of Past illness Narrative* Problem Noted Date Resolved Date Right wrist pain 09/29/2021 03/18/2022 Carpal tunnel syndrome on right 04/13/2018 05/28/2020 Overview: Added automatically from request for surgery [id number] Morbid obesity with BMI of 40.0-44.9, adult [...] of this encounter (statuses as of 06/30/2022) [facility] of Past illness Narrative* Problem Noted Date Resolved Date Right wrist pain 09/29/2021 03/18/2022 Carpal tunnel syndrome on right 04/13/2018 05/28/2020 Overview: Added automatically from request for surgery [id number] Morbid obesity with BMI of 40.0-44.9, adult [...] of this encounter (statuses as of 08/06/2022) [facility] History of Past illness Narrative* Problem Noted Date Resolved Date Right wrist pain 09/29/2021 03/18/2022 Carpal tunnel syndrome on right 04/13/2018 05/28/2020 Overview: Added automatically from request for surgery [id number] Morbid obesity with BMI of 40.0-44.9, adult [...] of this encounter (statuses as of 10/04/2022) [facility] History of Past illness Narrative* Problem Noted Date Resolved Date Right wrist pain 09/29/2021 03/18/2022 Carpal tunnel syndrome on right 04/13/2018 05/28/2020 Overview: Added automatically from request for surgery [id number] Morbid obesity with BMI of 40.0-44.9, adult [...] of this encounter (statuses as of 10/22/2022) [facility] History of Past illness Narrative* Problem Noted Date Resolved Date Right wrist pain 09/29/2021 03/18/2022 Carpal tunnel syndrome on right 04/13/2018 05/28/2020 Overview: Added automatically from request for surgery [id number] Morbid obesity with BMI of 40.0-44.9, adult [...] of this encounter (statuses as of 10/28/2022) [facility] History of Past illness Narrative* Problem Noted Date Resolved Date Right wrist pain 09/29/2021 03/18/2022 Carpal tunnel syndrome on right 04/13/2018 05/28/2020 Overview: Added automatically from request for surgery [id number] Morbid obesity with BMI of 40.0-44.9, adult [...] of this encounter (statuses as of 11/27/2022) [facility] History of Past illness Narrative* Problem Noted Date Resolved Date Right wrist pain 09/29/2021 03/18/2022 Carpal tunnel syndrome on right 04/13/2018 05/28/2020 Overview: Added automatically from request for surgery [id number] Morbid obesity with BMI of 40.0-44.9, adult [...] of this encounter (statuses as of 11/30/2022) [facility] History of Past illness Narrative* Problem Noted Date Resolved Date Right wrist pain 09/29/2021 03/18/2022 Carpal tunnel syndrome on right 04/13/2018 05/28/2020 Overview: Added automatically from request for surgery [id number] Morbid obesity with BMI of 40.0-44.9, adult [...] of this encounter (statuses as of 12/03/2022) [facility] History of Past illness Narrative* Problem Noted Date Resolved Date Right wrist pain 09/29/2021 03/18/2022 Carpal tunnel syndrome on right 04/13/2018 05/28/2020 Overview: Added automatically from request for surgery [id number] Morbid obesity with BMI of 40.0-44.9, adult [...] of this encounter (statuses as of 03/05/2023) [facility] History of Past illness Narrative* Problem Noted Date Resolved Date Right wrist pain 09/29/2021 03/18/2022 Carpal tunnel syndrome on right 04/13/2018 05/28/2020 Overview: Added automatically from request for surgery [id number] Morbid obesity with BMI of 40.0-44.9, adult [...] of this encounter (statuses as of 04/01/2023) [facility] History of Past illness Narrative* Problem Noted Date Resolved Date Right wrist pain 09/29/2021 03/18/2022 Carpal tunnel syndrome on right 04/13/2018 05/28/2020 Overview: Added automatically from request for surgery [id number] Morbid obesity with BMI of 40.0-44.9, adult [...] of this encounter (statuses as of 04/20/2023) [facility] History of Past illness Narrative* Problem Noted Date Diagnosed Date Resolved Date Right wrist pain 09/29/2021 03/18/2022 Carpal tunnel syndrome on right 04/13/2018 05/28/2020 Overview: Added automatically from request for surgery [id number] Morbid obesity with BMI of 40.0-44.9, adult [...] of this encounter (statuses as of 09/09/2023) [facility] History of Past illness Narrative* Problem Noted Date Diagnosed Date Resolved Date Right wrist pain 09/29/2021 03/18/2022 Carpal tunnel syndrome on right 04/13/2018 05/28/2020 Overview: Added automatically from request for surgery [id number] Morbid obesity with BMI of 40.0-44.9, adult [...] of this encounter (statuses as of 09/12/2023) [facility] History of Past illness Narrative* Problem Noted Date Diagnosed Date Resolved Date Right wrist pain 09/29/2021 03/18/2022 Carpal tunnel syndrome on right 04/13/2018 05/28/2020 Overview: Added automatically from request for surgery [id number] Morbid obesity with BMI of 40.0-44.9, adult [...] of this encounter (statuses as of 09/16/2023) [facility] History of Past illness Narrative* Problem Noted Date Diagnosed Date Resolved Date Right wrist pain 09/29/2021 03/18/2022 Carpal tunnel syndrome on right 04/13/2018 05/28/2020 Overview: Added automatically from request for surgery [id number] Morbid obesity with BMI of 40.0-44.9, adult [...] of this encounter (statuses as of 09/30/2023) [facility] History of Past illness Narrative* Problem Noted Date Diagnosed Date Resolved Date Right wrist pain 09/29/2021 03/18/2022 Carpal tunnel syndrome on right 04/13/2018 05/28/2020 Overview: Added automatically from request for surgery [id number] Morbid obesity with BMI of 40.0-44.9, adult [...] of this encounter (statuses as of 12/28/2023) [facility] History of Past illness Narrative* Problem Noted Date Diagnosed Date Resolved Date Right wrist pain 09/29/2021 03/18/2022 Carpal tunnel syndrome on right 04/13/2018 05/28/2020 Overview: Added automatically from request for surgery [id number] Morbid obesity with BMI of 40.0-44.9, adult [...] of this encounter (statuses as of 01/03/2024) [facility] History of Past illness Narrative* Problem Noted Date Diagnosed Date Resolved Date Right wrist pain 09/29/2021 03/18/2022 Carpal tunnel syndrome on right 04/13/2018 05/28/2020 Overview: Added automatically from request for surgery [id number] Morbid obesity with BMI of 40.0-44.9, adult [...] of this encounter (statuses as of 01/27/2024) [facility] History of Past illness Narrative* Problem Noted Date Diagnosed Date Resolved Date Right wrist pain 09/29/2021 03/18/2022 Carpal tunnel syndrome on right 04/13/2018 05/28/2020 Overview: Added automatically from request for surgery [id number] Morbid obesity with BMI of 40.0-44.9, adult [...] of this encounter (statuses as of 03/01/2024) [facility] History of Past illness Narrative* Problem Noted Date Resolved Date Carpal tunnel syndrome on right 04/13/2018 05/28/2020 Overview: Added automatically from request for surgery [id number] BMI 40.0-44.9, adult 02/21/2014 02/14/2015 Leg edema [...] of this encounter (statuses as of 03/12/2022) [facility] Diagnosis Diabetic polyneuropathy associated with type 2 diabetes mellitus (HCC) Hypothyroidism Unspecified hypothyroidism [facility] this [facility] Diagnosis Hypothyroidism, unspecified type- Primary [...] Dermatophytosis of nail [facility] Diagnosis Onychomycosis- Primary Dermatophytosis of nail Type 2 diabetes mellitus with peripheral neuropathy (HCC) Pain in toe of right foot Pain in limb Pain in toe of left foot Pain in limb [facility] Diagnosis Essential hypertension- Primary Unspecified essential hypertension [facility] this [facility] Diagnosis Urinary tract infection without hematuria, site unspecified [facility] this [facility] Diagnosis Type 2 diabetes mellitus with peripheral neuropathy (HCC) [facility] this [facility] Diagnosis Diabetic polyneuropathy associated with type 2 diabetes mellitus (HCC) [facility] this 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 Diagnosis Hyperlipidemia, unspecified hyperlipidemia type [facility] Diagnosis Hyperlipidemia, unspecified hyperlipidemia type Essential hypertension Unspecified essential hypertension [facility] Diagnosis Hyperlipidemia, unspecified hyperlipidemia type- Primary Hypertension goal BP (blood pressure) < 150/90 Unspecified essential hypertension Hypothyroidism, adult Other specified acquired hypothyroidism Essential hypertension Unspecified essential hypertension 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lbuminuria, without long-term current use of insulin (HCC) [facility] Diagnosis Type 2 diabetes mellitus with peripheral neuropathy (HCC)- Primary Onychomycosis Dermatophytosis of nail Pain in toe of right foot Pain in limb Pain in toe of left foot Pain in limb [facility] Leg swelling- Primary Swelling of limb Lipodermatosclerosis of both lower extremities Chronic venous insufficiency Unspecified venous (peripheral) insufficiency Lymphedema Other lymphedema Abdominal pannus Localized adiposity Leg cramps Cramp of limb Pain in both lower extremities Bruit of left carotid artery Other symptoms involving cardiovascular system [facility] Diagnosis Diabetic polyneuropathy associated with type 2 diabetes mellitus (HCC) Hypothyroidism Unspecified hypothyroidism [facility] Diagnosis Type 2 diabetes mellitus with peripheral neuropathy (HCC)- Primary Onychomycosis Dermatophytosis of nail Pain in toe of right foot Pain in limb Pain in toe of left foot Pain in limb Callus of foot Corns and callosities Hammer toe of right foot Peripheral arterial disease (HCC) Peripheral vascular disease, unspecified [facility] Diagnosis Leg swelling- Primary Swelling of limb Lipodermatosclerosis of both lower extremities Lymphedema Other lymphedema Chronic venous insufficiency Unspecified venous (peripheral) insufficiency Leg cramps Cramp of limb Bruit of left carotid artery Other symptoms involving cardiovascular system [facility] Diagnosis Ductal carcinoma in situ (DCIS) of right breast Encounter for screening mammogram for malignant neoplasm of breast Other screening mammogram [facility] Diagnosis Type 2 diabetes mellitus with peripheral neuropathy (HCC)- Primary Onychomycosis Dermatophytosis of nail Pain in toe of right foot Pain in limb Pain in toe of left foot Pain in limb Peripheral arterial disease (HCC) Peripheral vascular disease, unspecified [facility] Diagnosis Essential hypertension Unspecified essential hypertension [facility] Diagnosis Diabetic polyneuropathy associated with [...] [facility] Diagnosis Preoperative examination- Primary Preoperative examination, [...] [facility] Diagnosis Post-operative state- Primary Other postprocedural status [facility] [...] kidney and ureter [facility] Diagnosis Onychomycosis- Primary Dermatophytosis of nail Pain in toe of right foot Pain in limb Pain in toe of left foot Pain in limb Type 2 diabetes mellitus with peripheral neuropathy (HCC) [facility] Diagnosis Carpal tunnel syndrome on left- Primary Carpal tunnel syndrome [facility] Diagnosis Essential hypertension- Primary Unspecified essential hypertension [facility] Diagnosis Controlled type 2 diabetes mellitus [...] Carpal tunnel syndrome [facility] this [facility] Diagnosis Controlled type 2 diabetes [...] hypothyroidism Unspecified hypothyroidism [facility] this 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 Encounter for screening mammogram for malignant neoplasm of breast Other screening mamm[facility] Leg swelling- Primary Swelling of limb Lipodermatosclerosis of both lower extremities Lymphedema Other lymphedema Chronic venous insufficiency Unspecified venous (peripheral) insufficiency [facility] Diagnosis Controlled type 2 diabetes mellitus without complication, without long-term current use of insulin ([facility])- Primary Eustachian tube dysfunction, bilateral Need for [...] Corns and callosities [facility] Diagnosis Controlled type 2 diabetes [...] obesity type (HCC) documented in this encounter [facility]* Diagnosis Controlled type 2 diabetes [...] unspecified location- Primary documented in this encounter [facility] note* Diagnosis Controlled type 2 diabetes [...] Dyspnea, unspecified type [facility] this [facility] Diagnosis Controlled type 2 diabetes [...] Unspecified pruritic disorder documented in this encounter [facility]* Diagnosis Controlled type 2 diabetes [...] obesity type (HCC) documented in this encounter [facility]* Diagnosis Controlled type 2 diabetes [...] peripheral neuropathy (HCC) [facility] Diagnosis Controlled type 2 diabetes [...] (HCC) Atrial fibrillation documented in this encounter [facility]* Diagnosis Controlled type 2 diabetes [...] unspecified hyperlipidemia type documented in this encounter [facility] for referral (narrative)* Diagnostic Procedure Only (Routine) - Closed Specialty Diagnoses / Procedures Referred By Contac t Referred To Contact XR IMAGING Diagnoses Pain Procedures XR HAND GENERAL 3V PA/LAT/OBL LEFT RADEX HAND MINIMUM [address] [place] [address] Referral ID Status Reason Start Date Expiration Date V isits Requested Visits Authorized [id number] Closed Auto-Generate d Referral 12/06/2023 11/20/2024 1 1 [facility] for referral (narrative)No reason for referral [facility] Work Phone: Summary Purpose Family History No [...] FoundDocuments on File Type Date Recorded Patient Devops Expl anation Advance Directive(s) 01/03/2020 6:49 AM Advance Directive(s) 04/18/2018 6:26 AM Documents on File Type Date Recorded Patient Devops Expl anation Advance Directive(s) 01/03/2020 6:49 AM Advance Directive(s) 04/18/2018 6:26 AM Advance Directive Response Recorded Date/ Time Living Will No January 08 4:29pm Power of Watch Assembly Instructor No January 08, 2025 4:29pm Advance Directive Response Recorded Date/ Time Living Will No January 08 4:29pm Do you have a Healthcare Power of Watch Assembly Instructor? No January 08, 2025 4:29pm Advance Directive Response Recorded Date/ Time Living Will No January 08 4:29pm Do you have a Healthcare Power of Watch Assembly Instructor? No January 08, 2025 4:29pm Do you have a Healthcare Power of Watch Assembly Instructor? No April 16, 2025 11:25am Reason for Referral Specialty Diagnoses / Procedures Referred By Contac t Referred To Contact Podiatry Diagnoses Type 2 diabetes mellitus with peripheral neuropathy (HCC) Procedures CONSULT TO PODIATRY OFFICE/OUTPATIENT [facility] 60-74 MINUTES Jeana Guerra MD [address] [place] [address] Referral ID Status Reason Start Date Expiration Date Visits Requested Visits Authorized [id number] Authorized PCP Requested Referral 03/22/2022 03/22/2023 1 1 Specialty Diagnoses / Procedures Referred By Contac t Referred To Contact Diagnoses Ductal carcinoma in situ (DCIS) of right breast Encounter for screening mammogram for malignant neoplasm of breast Procedures MAMMO SCREENING WITH Amy Lucero, EPI-PAINT PREP TECHNICIAN [address] [facility] [address], [address] [place] [address] Referral ID Status Reason Start Date Expiration Date V isits Requested Visits Authorized [id number] New Request 08/13/2021 09/07/2022 1 1 Specialty Diagnoses / Procedures Referred By Contac t Referred To Contact Vascular Surgery Diagnoses Lipodermatosclerosis of both lower extremities Procedures CONSULT TO VASCULAR SURGERY OFFICE/OUTPATIENT [facility] 60-74 MINUTES Jeana Guerra MD [address] [place] [address] Referral ID Status Reason Start Date Expiration Date Visits Requested Visits Authorized [id number] Authorized PCP Requested Referral 09/30/2023 1 1 Specialty Diagnoses / Procedures Referred By Contac t Referred To Contact Diagnoses Leg swelling Lipodermatosclerosis of both lower extremities Chronic venous insufficiency Lymphedema Abdominal pannus Leg cramps Pain in both lower extremities Bruit of left carotid artery Procedures VASC DUPLEX CAROTID BILATERAL Aubrey Kelley, DO [address] [place] [address] Referral ID Status Reason Start Date Expiration Date V isits Requested Visits Authorized [id number] New Request 01/24/2023 02/18/2024 1 1 Specialty Diagnoses / Procedures Referred By Contac t Referred To Contact Diagnoses Leg swelling Lipodermatosclerosis of both lower extremities Chronic venous insufficiency Lymphedema Abdominal pannus Leg cramps Procedures VASC DUPLEX VENOUS WITH REFLUX BILATERAL LOWER Aubrey Kelley, DO [address] [place] [address] Referral ID Status Reason Start Date Expiration Date V isits Requested Visits Authorized [id number] New Request 01/24/2023 02/18/2024 1 1 Specialty Diagnoses / Procedures Referred By Contac t Referred To Contact Diagnoses Leg swelling Lipodermatosclerosis of both lower extremities Chronic venous insufficiency Lymphedema Abdominal pannus Leg cramps Aubrey Kelley, DO [address] [place] [address] Gordy Carlton MD [address] [facility] [address] [place] [address] Referral ID Status Reason Start Date Expiration Date V isits Requested Visits Authorized [id number] New Request 01/24/2023 02/18/2024 1 1 Referral ID Status Reason Start Date Expiration Date V isits Requested Visits Authorized [id number] New Request 08/30/2022 09/24/2023 1 1 Specialty Diagnoses / Procedures Referred By Contac t Referred To Contact Orthopedics Diagnoses Carpal tunnel syndrome of left wrist Procedures CONSULT TO ORTHOPAEDICS OFFICE/OUTPATIENT [facility] MDM 60-74 MINUTES Greta Arreola APRN.PAINT PREP TECHNICIAN [address] [place] [address] Referral ID Status Reason Start Date Expiration Date Visits Requested Visits Authorized [id number] Authorized PCP Requested Referral 09/29/2023 09/28/2024 1 1 Specialty Diagnoses / Procedures Referred By Contac t Referred To Contact Diagnoses Carpal tunnel syndrome on left Procedures REFER TO PACC - PRE ANESTHESIA CONSULTATION CLINIC OFFICE/OUTPATIENT [facility] MDM 60 MINUTES Falguni Hall PA-C [address] [place] [address] Referral ID Status Reason Start Date Expiration Date Visits Requested Visits Authorized [id number] Authorized PCP Requested Referral 12/28/2023 12/27/2024 1 1 Referral ID Status Reason Start Date Expiration Date V isits Requested Visits Authorized [id number] Pending Review 09/05/2023 09/29/2024 1 1 Referral ID Status Reason Start Date Expiration Date V isits Requested Visits Authorized [id number] Pending Review 09/10/2024 10/05/2025 1 1 Chief [...] of both lower extremities Right leg swelling [id number] Venous stasis ulcer Chronic venous insufficiency Dyslipidemia Hypertension Hypothyroidism Type 2 diabetes mellitus 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 Chief Complaint Admit Date NEW ONSET AFIB, HF January 08, 2025 12:50pm NEW ONSET AFIB, HF January 09, 2025 8:29am NEW ONSET AFIB, HF January 09, 2025 9:36am NEW ONSET AFIB, HF January 09, 2025 3:21pm NEW ONSET AFIB, HF February 20th, 2025 8:48am NEW ONSET AFIB, HF January 10, 2025 9:09am NEW ONSET AFIB, HF January 11, 2025 8:25am NEW ONSET AFIB, HF January 11, 2025 8:45am WC 01/11 NEW ONSET AFIB January 23, 2025 [...] ONSET AFIB, HF January 11, 2025 8:45am WC 21 NEW ONSET AFIB January 23, 2025 10:50am INT LAB ORDERS January 23, 2025 12:1 6pm XRAY CHEST PA & LAT January 31, 2025 12: 36pm CHF EXACERBATION April 16, 2025 1:59p m Additional Source Comments INFORMATION SOURCE (unrecogn ized section and content) DATE CREATED AUTHOR 05/11/2018 [facility] DATE CREATED AUTHOR AUTHOR'S ORGANIZ ATION 09/29/2024 [facility] DATE CREATED AUTHOR AUTHOR'S ORGANIZ ATION 04/26/2025 [facility] DATE CREATED AUTHOR AUTHOR'S ORGANIZ ATION 04/27/2025 [facility] Source Comments (unrecognize d section and content) In the event this informatio n is protected by the Federal Confidentiality of Alcohol and Drug Abuse Patient Records regulations: The Federal rules restrict any use of the information to criminally investigate or prosecute any alcohol or drug abuse patient.[facility] the event this information is protected by the Federal Confidentiality of Alcohol and Drug Abuse Patient Records regulations: The Federal rules restrict any use of the information to criminally investigate or prosecute any alcohol or drug abuse patient.[facility] the event this information is protected by the Federal Confidentiality of Alcohol and Drug Abuse Patient Records regulations: The Federal rules restrict any use of the information to criminally investigate or prosecute any alcohol or drug abuse patient.[facility] the event this information is protected by the Federal Confidentiality of Alcohol and Drug Abuse Patient Records regulations: The Federal rules restrict any use of the information to criminally investigate or prosecute any alcohol or drug abuse patient.[facility] the event this information is protected by the Federal Confidentiality of Alcohol and Drug Abuse Patient Records regulations: The Federal rules restrict any use of the information to criminally investigate or prosecute any alcohol or drug abuse patient.[facility] the event this information is protected by the Federal Confidentiality of Alcohol and Drug Abuse Patient Records regulations: The Federal rules restrict any use of the information to criminally investigate or prosecute any alcohol or drug abuse patient.[facility] HospitalIn the event this information is protected by the Federal Confidentiality of Alcohol and Drug Abuse Patient Records regulations: The Federal rules restrict any use of the information to criminally investigate or prosecute any alcohol or drug abuse patient.[facility] HospitalIn the event this information is protected by the Federal Confidentiality of Alcohol and Drug Abuse Patient Records regulations: The Federal rules restrict any use of the information to criminally investigate or prosecute any alcohol or drug abuse patient.[facility] HospitalIn the event this information is protected by the Federal Confidentiality of Alcohol and Drug Abuse Patient Records regulations: The Federal rules restrict any use of the information to criminally investigate or prosecute any alcohol or drug abuse patient.[facility] HospitalIn the event this information is protected by the Federal Confidentiality of Alcohol and Drug Abuse Patient Records regulations: The Federal rules restrict any use of the information to criminally investigate or prosecute any alcohol or drug abuse patient.[facility] HospitalIn the event this information is protected by the Federal Confidentiality of Alcohol and Drug Abuse Patient Records regulations: The Federal rules restrict any use of the information to criminally investigate or prosecute any alcohol or drug abuse patient.[facility] HospitalIn the event this information is protected by the Federal Confidentiality of Alcohol and Drug Abuse Patient Records regulations: The Federal rules restrict any use of the information to criminally investigate or prosecute any alcohol or drug abuse patient.[facility] HospitalIn the event this information is protected by the Federal Confidentiality of Alcohol and Drug Abuse Patient Records regulations: The Federal rules restrict any use of the information to criminally investigate or prosecute any alcohol or drug abuse patient.[facility] HospitalIn the event this information is protected by the Federal Confidentiality of Alcohol and Drug Abuse Patient Records regulations: The Federal rules restrict any use of the information to criminally investigate or prosecute any alcohol or drug abuse patient.[facility] HospitalIn the event this information is protected by the Federal Confidentiality of Alcohol and Drug Abuse Patient Records regulations: The Federal rules restrict any use of the information to criminally investigate or prosecute any alcohol or drug abuse patient.[facility] HospitalIn the event this information is protected by the Federal Confidentiality of Alcohol and Drug Abuse Patient Records regulations: The Federal rules restrict any use of the information to criminally investigate or prosecute any alcohol or drug abuse patient.[facility] HospitalIn the event this information is protected by the Federal Confidentiality of Alcohol and Drug Abuse Patient Records regulations: The Federal rules restrict any use of the information to criminally investigate or prosecute any alcohol or drug abuse patient.[facility] HospitalIn the event this information is protected by the Federal Confidentiality of Alcohol and Drug Abuse Patient Records regulations: The Federal rules restrict any use of the information to criminally investigate or prosecute any alcohol or drug abuse patient.[facility] HospitalIn the event this information is protected by the Federal Confidentiality of Alcohol and Drug Abuse Patient Records regulations: The Federal rules restrict any use of the information to criminally investigate or prosecute any alcohol or drug abuse patient.[facility] HospitalIn the event this information is protected by the Federal Confidentiality of Alcohol and Drug Abuse Patient Records regulations: The Federal rules restrict any use of the information to criminally investigate or prosecute any alcohol or drug abuse patient.[facility] HospitalIn the event this information is protected by the Federal Confidentiality of Alcohol and Drug Abuse Patient Records regulations: The Federal rules restrict any use of the information to criminally investigate or prosecute any alcohol or drug abuse patient.[facility] HospitalIn the event this information is protected by the Federal Confidentiality of Alcohol and Drug Abuse Patient Records regulations: The Federal rules restrict any use of the information to criminally investigate or prosecute any alcohol or drug abuse patient.[facility] HospitalIn the event this information is protected by the Federal Confidentiality of Alcohol and Drug Abuse Patient Records regulations: The Federal rules restrict any use of the information to criminally investigate or prosecute any alcohol or drug abuse patient.[facility] HospitalIn the event this information is protected by the Federal Confidentiality of Alcohol and Drug Abuse Patient Records regulations: The Federal rules restrict any use of the information to criminally investigate or prosecute any alcohol or drug abuse patient.[facility] HospitalIn the event this information is protected by the Federal Confidentiality of Alcohol and Drug Abuse Patient Records regulations: The Federal rules restrict any use of the information to criminally investigate or prosecute any alcohol or drug abuse patient.[facility] HospitalIn the event this information is protected by the Federal Confidentiality of Alcohol and Drug Abuse Patient Records regulations: The Federal rules restrict any use of the information to criminally investigate or prosecute any alcohol or drug abuse patient.[facility] HospitalIn the event this information is protected by the Federal Confidentiality of Alcohol and Drug Abuse Patient Records regulations: The Federal rules restrict any use of the information to criminally investigate or prosecute any alcohol or drug abuse patient.[facility] HospitalIn the event this information is protected by the Federal Confidentiality of Alcohol and Drug Abuse Patient Records regulations: The Federal rules restrict any use of the information to criminally investigate or prosecute any alcohol or drug abuse patient.[facility] HospitalIn the event this information is protected by the Federal Confidentiality of Alcohol and Drug Abuse Patient Records regulations: The Federal rules restrict any use of the information to criminally investigate or prosecute any alcohol or drug abuse patient.[facility] HospitalIn the event this information is protected by the Federal Confidentiality of Alcohol and Drug Abuse Patient Records regulations: The Federal rules restrict any use of the information to criminally investigate or prosecute any alcohol or drug abuse patient.[facility] HospitalIn the event this information is protected by the Federal Confidentiality of Alcohol and Drug Abuse Patient Records regulations: The Federal rules restrict any use of the information to criminally investigate or prosecute any alcohol or drug abuse patient.[facility] HospitalIn the event this information is protected by the Federal Confidentiality of Alcohol and Drug Abuse Patient Records regulations: The Federal rules restrict any use of the information to criminally investigate or prosecute any alcohol or drug abuse patient.[facility] HospitalIn the event this information is protected by the Federal Confidentiality of Alcohol and Drug Abuse Patient Records regulations: The Federal rules restrict any use of the information to criminally investigate or prosecute any alcohol or drug abuse patient.[facility] HospitalIn the event this information is protected by the Federal Confidentiality of Alcohol and Drug Abuse Patient Records regulations: The Federal rules restrict any use of the information to criminally investigate or prosecute any alcohol or drug abuse patient.[facility] HospitalIn the event this information is protected by the Federal Confidentiality of Alcohol and Drug Abuse Patient Records regulations: The Federal rules restrict any use of the information to criminally investigate or prosecute any alcohol or drug abuse patient.[facility] HospitalIn the event this information is protected by the Federal Confidentiality of Alcohol and Drug Abuse Patient Records regulations: The Federal rules restrict any use of the information to criminally investigate or prosecute any alcohol or drug abuse patient.[facility] HospitalIn the event this information is protected by the Federal Confidentiality of Alcohol and Drug Abuse Patient Records regulations: The Federal rules restrict any use of the information to criminally investigate or prosecute any alcohol or drug abuse patient.[facility] HospitalIn the event this information is protected by the Federal Confidentiality of Alcohol and Drug Abuse Patient Records regulations: The Federal rules restrict any use of the information to criminally investigate or prosecute any alcohol or drug abuse patient.[facility] HospitalIn the event this information is protected by the Federal Confidentiality of Alcohol and Drug Abuse Patient Records regulations: The Federal rules restrict any use of the information to criminally investigate or prosecute any alcohol or drug abuse patient.[facility] HospitalIn the event this information is protected by the Federal Confidentiality of Alcohol and Drug Abuse Patient Records regulations: The Federal rules restrict any use of the information to criminally investigate or prosecute any alcohol or drug abuse patient.[facility] HospitalIn the event this information is protected by the Federal Confidentiality of Alcohol and Drug Abuse Patient Records regulations: The Federal rules restrict any use of the information to criminally investigate or prosecute any alcohol or drug abuse patient.[facility] HospitalIn the event this information is protected by the Federal Confidentiality of Alcohol and Drug Abuse Patient Records regulations: The Federal rules restrict any use of the information to criminally investigate or prosecute any alcohol or drug abuse patient.[facility] HospitalIn the event this information is protected by the Federal Confidentiality of Alcohol and Drug Abuse Patient Records regulations: The Federal rules restrict any use of the information to criminally investigate or prosecute any alcohol or drug abuse patient.[facility] HospitalIn the event this information is protected by the Federal Confidentiality of Alcohol and Drug Abuse Patient Records regulations: The Federal rules restrict any use of the information to criminally investigate or prosecute any alcohol or drug abuse patient.[facility] HospitalIn the event this information is protected by the Federal Confidentiality of Alcohol and Drug Abuse Patient Records regulations: The Federal rules restrict any use of the information to criminally investigate or prosecute any alcohol or drug abuse patient.[facility] HospitalIn the event this information is protected by the Federal Confidentiality of Alcohol and Drug Abuse Patient Records regulations: The Federal rules restrict any use of the information to criminally investigate or prosecute any alcohol or drug abuse patient.[facility] HospitalIn the event this information is protected by the Federal Confidentiality of Alcohol and Drug Abuse Patient Records regulations: The Federal rules restrict any use of the information to criminally investigate or prosecute any alcohol or drug abuse patient.[facility] Care Teams (unrecognized sec tion and content) Recapper Relationship Specialty Start Date End Date Jeana Guerra MD [address] [place] [address] PCP - General Internal Medicine 11/29/16 Recapper Relationship Specialty Start Date End Date Jeana Guerra MD [address] [place] [address] PCP - General Internal Medicine 11/29/16 Recapper Relationship Specialty Start Date End Date Jeana Guerra MD [address] [place] [address] PCP - General Internal Medicine 11/29/16 Recapper Relationship Specialty Start Date End Date Jeana Guerra MD [address] [place] [address] PCP - General Internal Medicine 11/29/16 Recapper Relationship Specialty Start Date End Date Jeana Guerra MD [address] [place] [address] PCP - General Internal Medicine 11/29/16 Recapper Relationship Specialty Start Date End Date Jeana Guerra MD [address] [place] [address] PCP - General Internal Medicine 11/29/16 Recapper Relationship Specialty Start Date End Date Jeana Guerra MD [address] [facility] [place] [address] PCP - General Internal Medicine 11/29/16 Recapper Relationship Specialty Start Date End Date Jeana Guerra MD [address] [place] [address] PCP - General Internal Medicine 07/31/20 Avinash Barbosa MD [address] [place] [address] General Surgery 03/24/09 Roger Reynolds MD [address], [address] [place] [address] Surgeon Surgical Oncology 12/31/09 Recapper Relationship Specialty Start Date End Date Jeana Guerra MD [address] [facility] [place] [address] PCP - General Internal Medicine 11/29/16 Recapper Relationship Specialty Start Date End Date Jeana Guerra MD [address] [facility] [place] [place] [address] PCP - General Internal Medicine 11/29/16 Recapper Relationship Specialty Start Date End Date Jeana Guerra MD [address] [facility] [place] [place] [address] PCP - General Internal Medicine 11/29/16 Recapper Relationship Specialty Start Date End Date Jeana Guerra MD [address] [facility] [place] [address] PCP - General Internal Medicine 11/29/16 Recapper Relationship Specialty Start Date End Date Jeana Guerra MD [address] [place] [address] PCP - General Internal Medicine 07/31/20 Avinash Barbosa MD [address] [place] [address] General Surgery 03/24/09 Roger Reynolds MD [address], [address] [place] [address] Surgeon Surgical Oncology 12/31/09 Recapper Relationship Specialty Start Date End Date Jeana Guerra MD [address] [place] [address] PCP - General Internal Medicine 11/29/16 Recapper Relationship Specialty Start Date End Date Jeana Guerra MD [address] [place] [address] PCP - General Internal Medicine 11/29/16 Recapper Relationship Specialty Start Date End Date Jeana Guerra MD [address] [place] [address] PCP - General Internal Medicine 11/29/16 Recapper Relationship Specialty Start Date End Date Jeana Guerra MD [address] [place] [address] PCP - General Internal Medicine 07/31/20 Avinash Barbosa MD [address] [place] [address] General Surgery 03/24/09 Roger Reynolds MD [address], [address] [place] [address] Surgeon Surgical Oncology 12/31/09 Recapper Relationship Specialty Start Date End Date Jeana Guerra MD [address] [place] [address] PCP - General Internal Medicine 07/31/20 Avinash Barbosa MD [address] [place] [address] General Surgery 03/24/09 Roger Reynolds MD [address], [address] [place] [address] Surgeon Surgical Oncology 12/31/09 Recapper Relationship Specialty Start Date End Date Jeana Guerra MD [address] [place] [address] PCP - General Internal Medicine 11/29/16 Recapper Relationship Specialty Start Date End Date Jeana Guerra MD [address] [place] [address] PCP - General Internal Medicine 11/29/16 Recapper Relationship Specialty Start Date End Date Jeana Guerra MD [address] [place] [address] PCP - General Internal Medicine 11/29/16 Recapper Relationship Specialty Start Date End Date Jeana Guerra MD [address] [place] [address] PCP - General Internal Medicine 11/29/16 Recapper Relationship Specialty Start Date End Date Jeana Guerra MD [address] [place] [address] PCP - General Internal Medicine 11/29/16 Recapper Relationship Specialty Start Date End Date Jeana Guerra MD [address] [place] [address] PCP - General Internal Medicine 11/29/16 Recapper Relationship Specialty Start Date End Date Jeana Guerra MD [address] [place] [address] PCP - General Internal Medicine 11/29/16 Recapper Relationship Specialty Start Date End Date Jeana Guerra MD [address] [place] [address] PCP - General Internal Medicine 11/29/16 Recapper Relationship Specialty Start Date End Date Jeana Guerra MD [address] [place] [address] PCP - General Internal Medicine 11/29/16 Recapper Relationship Specialty Start Date End Date Jeana Guerra MD [address] [place] [address] PCP - General Internal Medicine 11/29/16 Recapper Relationship Specialty Start Date End Date Jeana Guerra MD [address] [place] [address] PCP - General Internal Medicine 11/29/16 Recapper Relationship Specialty Start Date End Date Jeana Guerra MD [address] [place] [address] PCP - General Internal Medicine 11/29/16 Recapper Relationship Specialty Start Date End Date Jeana Guerra MD [address] [place] [address] PCP - General Internal Medicine 11/29/16 Recapper Relationship Specialty Start Date End Date Jeaan Guerra MD [address] [place] [address] PCP - General Internal Medicine 11/29/16 Recapper Relationship Specialty Start Date End Date Jeana Guerra MD [address] [place] [address] PCP - General Internal Medicine 07/31/20 Avinash Barbosa MD [address] [place] [address] General Surgery 03/24/09 Roger Reynolds MD [address] [facility] 3rd Floor, [address] [place] [address] Surgeon Surgical Oncology 12/31/09 Recapper Relationship Specialty Start Date End Date Jeana Guerra MD [address] [place] [address] PCP - General Internal Medicine 07/31/20 Avinash Barbosa MD [address] [place] [address] General Surgery 03/24/09 Roger Reynolds MD [address] [facility] [address]rd Floor, [address] [place] [address] Surgeon Surgical Oncology 12/31/09 Recapper Relationship Specialty Start Date End Date Jeana Guerra MD [address] [place] [address] PCP - General Internal Medicine 07/31/20 Avinash Barbosa MD [address] [place] [address] General Surgery 03/24/09 Roger Reynolds MD [address] [facility] [address]rd Floor, [address] [place] [address] Surgeon Surgical Oncology 12/31/09 Recapper Relationship Specialty Start Date End Date Jeana Guerra MD [address] [place] [address] PCP - General Internal Medicine 11/29/16 Recapper Relationship Specialty Start Date End Date Jeana Guerra MD [address] [place] [address] PCP - General Internal Medicine 07/31/20 Avinash Barbosa MD [address] [place] [address] General Surgery 03/24/09 Roger Reynolds MD [address] [facility] [address]rd Floor, [address] [place] [address] Surgeon Surgical Oncology 12/31/09 Recapper Relationship Specialty Start Date End Date Jeana Guerra MD [address] [place] [address] PCP - General Internal Medicine 11/29/16 Recapper Relationship Specialty Start Date End Date Jeana Guerra MD [address] [place] [address] PCP - General Internal Medicine 11/29/16 Recapper Relationship Specialty Start Date End Date Jeana Guerra MD [address] [place] [address] PCP - General Internal Medicine 07/31/20 Avinash Barbosa MD [address] [place] [address] General Surgery 03/24/09 Roger Reynolds MD [address] [facility] [address] Floor, [address] [place] [address] Surgeon Surgical Oncology 12/31/09 Recapper Relationship Specialty Start Date End Date Jeana Guerra MD [address] [place] [address] PCP - General Internal Medicine 07/31/20 Avinash Barbosa MD [address] [place] [address] General Surgery 03/24/09 Roger Reynolds MD [address] [facility] [address] Floor, [address] [place] [address] Surgeon Surgical Oncology 12/31/09 Recapper Relationship Specialty Start Date End Date Jeana Guerra MD [address] [place] [address] PCP - General Internal Medicine 11/29/16 Rosemarie Taylor PA-C [address] [place] [address] Liability Claims Representative Family Medicine 10/28/24 Greta Arreola APRN.PAINT PREP TECHNICIAN [address] [place] [address] Liability Claims Representative Internal Medicine 10/28/24 Lindsey Camara PA-C [address] [place] [address] Liability Claims Representative Family Medicine 10/28/24 Recapper Relationship Specialty Start Date End Date Jeana Guerra MD [address] [place] [address] PCP - General Internal Medicine 11/29/16 Rosemarie Taylor PA-C [address] [place], [place] [id number] [phone] Liability Claims Representative Family Medicine 10/28/24 Greta Arreola APRN.PAINT PREP TECHNICIAN [address] [place] [address] Liability Claims Representative Internal Medicine 10/28/24 Lindsey Camara PA-C [address] [place] [address] Liability Claims Representative Family [facility] 10/28/24 Recapper Relationship Specialty Start Date End Date Jeana uGerra MD [address] [place] [address] PCP - General Internal Medicine 11/29/16 Rosemarie Taylor PA-C [address] [place] [address] Liability Claims Representative Family Medicine 10/28/24 Greta Arreola APRN.PAINT PREP TECHNICIAN [address] [place] [address] Liability Claims Representative Internal Medicine 10/28/24 Lindsey Camara PA-C [address] [place] [address] Liability Claims Representative Family Medicine 10/28/24 Recapper Relationship Specialty Start Date End Date Jeana Guerra MD [address] [place] [address] PCP - General Internal Medicine 11/29/16 Rosemarie Taylor PA-C [address] [place] [address] Liability Claims Representative Family Medicine 10/28/24 Greta Arreola APRN.PAINT PREP TECHNICIAN [address] [place] [address] Liability Claims Representative Internal Medicine 10/28/24 Lindsey Camara PA-C [address] [place] [address] Liability Claims Representative Family Medicine 10/28/24 Recapper Relationship Specialty Start Date End Date Jeana Guerra MD [address] [place] [address] PCP - General Internal Medicine 11/29/16 Rosemarie Taylor PA-C [address] [place] [address] Liability Claims Representative Family Medicine 10/28/24 Greta Arreola APRN.PAINT PREP TECHNICIAN [address] [place] [address] Liability Claims Representative Internal Medicine 10/28/24 Lindsey Camara PA-C [address] [place] [address] Liability Claims Representative Family Medicine 10/28/24 Team Status: Active Member Role [...] Care Provider Active Start: January 31, 2025 Magdi Thomas PA Attending Provider Active St art: January 31, [...] January 31, 2025 End: January 31, 2025 Recapper Relationship Specialty Start Date End Date Jeana Guerra MD [address] [place], [place] [address] PCP - General Internal Medicine 11/29/16 Older, Greta, MULTIMEDIA AUTHOR.PAINT PREP TECHNICIAN [address] [place], [place] [address] Liability Claims Representative Internal Medicine 10/28/24 Recapper Relationship Specialty Start Date End Date Jeana Guerra MD [address] [place], [place] [address] PCP - General Internal Medicine 11/29/16 Greta Arreola APRN.PAINT PREP TECHNICIAN [address] [place] [address] Liability Claims Representative Internal Medicine 10/28/24 Recapper Relationship Specialty Start Date End Date Jeana Guerra MD [address] [place] [address] PCP - General Internal Medicine 11/29/16 Greta Arreola APRN.PAINT PREP TECHNICIAN [address] [place] [address] Liability Claims Representative Internal Medicine 10/28/24 Recapper Relationship Specialty Start Date End Date Jeana Guerra MD [address] [place] [address] PCP - General Internal Medicine 11/29/16 Greta Arreola, MULTIMEDIA AUTHOR.PAINT PREP TECHNICIAN [address] [place] [address] Liability Claims Representative Internal Medicine 10/28/24 Team Status: Active Member Role Status Dates Dr. Jeana Guerra MD Primary Care Provider Active Start: April 16, 2025 Dr. Nathan Castanon , DO Emergency Provider Activ e Start: April 16, 2025 Dr. Ras Blas , Admit Provider Active Star t: April 16, 2025 Dr. Ras Blas , DO Attending Provider Active Start: April 16, 2025 Dr. Ras Blas , DO Referring Provider Active Start: April 16, 2025 Recapper Relationship Specialty Start Date End Date Jeana Guerra MD [address] [place] [address] PCP - General Internal Medicine 11/29/16 Anuja ArreolayZURI [address] [place] [address] Liability Claims Representative Internal Medicine 10/28/24 Reason for Visit (unrecogniz ed section and content) Reason Comments Established Patient 6 month follow up- m ed refills Reason Comments Established Patient Diabetic Foot Care Specialty Diagnoses / Procedures Referred By Page t Referred To Contact Podiatry Diagnoses Type 2 diabetes mellitus with peripheral neuropathy (HCC) Procedures CONSULT TO PODIATRY OFFICE/OUTPATIENT NEW HIGH MDM 60-74 MINUTES Jeana Guerra MD [address] [place] [address] Referral ID Status Reason Start Date Expiration Date V isits Requested Visits Authorized [id number] Closed PCP Requested Referral 03/22/2022 03/22/2023 1 1 Reason Comments Blood Pressure Check Reason Comments Blood Pressure Check Patient Update Reason Comments Refill Request Specialty Diagnoses / Procedures Referred By Page campos Referred To Contact Diagnoses Ductal carcinoma in situ (DCIS) of right breast Encounter for screening mammogram for malignant neoplasm of breast Procedures MAMMO SCREENING WITH DAVION Amy Dorantes APRN-PAINT PREP TECHNICIAN [address] [facility] [address], [address] [place] [address] Referral ID Status Reason Start Date Expiration Date V isits Requested Visits Authorized [id number] New Request 08/13/2021 09/07/2022 1 1 Reason Comments Consult Reason Comments Recheck 1 month elevated BP Reason Comments Appointment Reason Onset Date Comments Refill Request 11/29/2022 Reason Comments Established Patient Follow Up Diabetic Foot Care Reason Comments New Patient Lipodermatosclerosis Specialty Diagnoses / Procedures Referred By Page t Referred To Contact Cardiovascular Medicine Diagnoses Lipodermatosclerosis, unspecified laterality Carlos Shaw MD [address] [place] [address] Referral ID Status Reason Start Date Expiration Date V isits Requested Visits Authorized [id number] New Request 10/04/2022 10/29/2023 1 1 Reason Comments Handicap placard Reason Comments Established Patient nail care [place] Reason Comments Follow-up 6follow up. Pt state s no new/onset vascular symptoms. Referral ID Status Reason Start Date Expiration Date V isits Requested Visits Authorized [id number] New Request 08/30/2022 09/24/2023 1 1 Reason Onset Date Comments Refill Request 09/12/2023 Reason Comments Recheck 6 month Reason Onset Date Comments Refill Request 01/03/2024 Specialty Diagnoses / Procedures Referred By Contac t Referred To Contact Diagnoses Carpal tunnel syndrome on left Procedures REFER TO PACC - PRE ANESTHESIA CONSULTATION CLINIC OFFICE/OUTPATIENT [facility] 60 MINUTES Falguni Hall PA-C [address] [place] [address] Referral ID Status Reason Start Date Expiration Date V isits Requested Visits Authorized [id number] Closed PCP Requested Referral 12/28/2023 12/27/2024 1 1 Reason Comments F/U 6 Month Reason Comments Recheck Follow up BP Reason Onset Date Comments Refill Request 07/03/2024 Reason Comments Radio Gen RMP Specialty Diagnoses / Procedures Referred By Contac t Referred To Contact XR IMAGING Diagnoses Pain Procedures XR HAND GENERAL 3V PA/LAT/OBL LEFT RADEX HAND MINIMUM 3 [place] [address] Referral ID Status Reason Start Date Expiration Date V isits Requested Visits Authorized [id number] Closed Auto-Generate d Referral 12/06/2023 11/20/2024 1 1 Reason Comments F/U 6 months Bilateral legs wound s, seen in [place], better now, usually sees Dr Carlos Shaw for skin. Reason Comments Results Referral ID Status Reason Start Date Expiration Date V isits Requested Visits Authorized [id number] Pending Review 09/05/2023 09/29/2024 1 1 Reason [...] of payor Reason Comments Hospital F/U Hospital [facility] f/u, a fib Reason Onset Date [...] BE BASED ON THE PRIMARY CLINICAL RECORDS. [employer] provides no warranty or guarantee of the accuracy or completeness of information in this document.
[2025-04-27 05:50] LABS: Hematocrit 25.4 % (37-47); Hemoglobin 8.3 g/dL (12.0-15.0)
--- NOTE | 2025-04-27 05:58 | ED.RN ---
report called to Brenda ferguson.
[2025-04-27] MEDS: Pantoprazole Sodium 80 MG in 0.9% Normal Saline (100mL Bag) 80 ML 10 MG CONT INF ×2 (06:58→16:42)
[2025-04-27 07:18] LABS: Bedside Glucose 110 mg/dL (74-106)
--- NOTE | 2025-04-27 07:35 | PN.HOSP_ITS ---
Reason for Visit Reason for Visit: Diagnoses Unspecified atrial fibrillation (04/27/25) Gastrointestinal hemorrhage, unspecified (04/27/25) Subjective Subjective No further bleeding. Objective Data Objective Data Vital Signs: Vital Signs Temp Pulse Resp BP Pulse Ox O2 Del Method O2 Flow Rate 35.8 C L 115 H 20 H 105/81 H 98 Nasal Cannula 2 04/27/25 06:33 04/27/25 06:45 04/27/25 06:45 04/27/25 06:45 04/27/25 07:19 04/27/25 07:19 04/27/25 07:19 FiO2 2 04/27/25 02:48 Oxygen Flow Rate (L/min) 2 Oxygen Delivery Method Nasal Cannula Weight: 96.797 kg Body Mass Index (BMI) 40.3 Intake & Output: Intake and Output for Last 24 Hours 04/25/25 04/26/25 04/27/25 23:59 23:59 23:59 Intake Total 1215 / 1215 886 / 886 Output Total Balance 1215 / 1215 881 / 881 Lab / Micro Data 04/27/25 12:15 04/26/25 20:45 Labs: Laboratory Results - last 24 hr 04/26/25 20:45: WBC 13.7 H, RBC 2.56 L, Hgb 7.1 L, Hct 23.0 L, MCV 89.8, MCH 27.7, MCHC 30.9 L, RDW Std Deviation 53.1 H, RDW Coeff of Marcial 16.5 H, Plt Count 339, MPV 10.4, Immature Gran % (Auto) 1.700 H, Neut % (Auto) 80.5 H, Lymph % (Auto) 11.3 L, [place] % (Auto) 5.3, Eos % (Auto) 0.8, Baso % (Auto) 0.4, Absolute Neuts (auto) 11.1 H, Absolute Lymphs (auto) 1.55, Nucleated RBC % 0, PT 20.4 H, INR 1.7, APTT 31.6, Sodium 140, Potassium 4.6, Chloride 105, Carbon Dioxide 22.7, Anion Gap 12, BUN 55 H, Creatinine 1.39 H, Estim Creat Clear Calc 31.24 L, Est GFR (MDRD) Non-Af 37 L, BUN/Creatinine Ratio 39.6 H, Glucose 183 H, Calcium 8.4 04/26/25 21:11: Blood Type O POSITIVE, Antibody Screen NEGATIVE, Crossmatch See Detail 04/27/25 05:35: Hgb 8.3 L, Hct 25.4 L 04/27/25 06:57: POC Glucose 110 H Micro: Microbiology 04/26/25 21:08 Stool Stool Occult Blood (ANDREA) - Final Occult Blood Positive Physical Exam Const alert and no apparent distress HEENT head/scalp atraumatic and moist oral mucous membranes Resp normal respiratory effort, no retractions, no use of accessory muscles and clear to auscultation bilaterally Cardio regular rate, regular rhythm, S1 normal heart sound and S2 normal heart sound GI normal to inspection, nondistended, normoactive bowel sounds, soft to palpation, non-tender and non-distended Extremity normal to inspection and full ROM Assessment & Plan Assessment/Plan (1) Transient hypotension: PLAN: BP transiently down to 58/41, but has recovered. 2/2 ABLA + antihypertensives. Monitor. improved. Monitor (2) ABLA (acute blood loss anemia): PLAN: 2/2 GIB complicated by apixaban transfused 2 units PRBCs. Monitor (3) GI (gastrointestinal bleed): PLAN: on PPI gtt GI consult (4) Atrial fibrillation with RVR: PLAN: pAfib w RVR already on PO amio. Started on Amiodaron gtt. PLAN: Plan chronic conditions: * DM2: metformin held. SSI. * HFpEF: monitor for volume overload. * hypothyroidism: levothyroxine VTE prophylaxis: SCDs. DW family at bedside. Charges/Coding Visit Charges Inpatient E&M: 82373 Subs Hosp L2
--- NOTE | 2025-04-27 08:46 | CON.PCM.CC_ITS ---
HPI Consult Data Date of Consult: 04/27/25 HPI Narrative HPI Narrative: JESS JACKSON, is a 84yo F w/ R breast Ca s/p lumpectomy, chronic lymphedema, paroxysmal Afib on eliquis, CKD requiring prior temporary HD, HFpEF, HTN, DM with neuropathy, chronic anemia who was admitted fo weakness and bloody diarrhea. She was recently hospitalized here for respiratory failure and volume overload requiring temporary HD, and thoracentesis x 2 + paracentesis. She reports she was off eliquis most of the admission for procedures, but received a dose on 04/25. She was subsequently discharged 04/26. After going home she developed acute onset blood diarrhea, abd pain, followed by nonbloody vomiting; this prompted her to come back to ED here. She was noted to be in Afib w/ RVR, hypotensive, and with Hgb drop to 7.1. She was given 2U pRBC and 1U PCC for eliquis reversal. She reports feeling substantially better now, no further vomiting/diarrhea so far today. Still with mild RVR but denies CP, dyspnea. Denies prior h/o GI bleed. ROS: 12-point ROS negative except as per HPI PFSH Medical History Diabetes Kidney disease Non-smoker Venous (peripheral) insufficiency Atrial fibrillation CHF (congestive heart failure) Venous stasis ulcer Hyperpigmentation of skin Lipodermatosclerosis of both lower extremities Right leg swelling Left leg swelling Varicose veins of lower extremity with inflammation, 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 Chronic venous insufficiency Generalized osteoarthrosis History of right breast cancer Cardiomegaly Home Medications ?Medication ?Instructions ?Recorded ?Last Taken ?Type gabapentin 300 mg capsule 300 mg PO QHS Neuropathy 09/0604/15/25 History (Neurontin) levothyroxine 100 mcg tablet 100 mcg PO DAILY thyroid 09/30/17 04/16/25 History lisinopril 40 mg tablet 40 mg PO DAILY blood pressur e 09/30/17 04/15/25 History metformin 500 mg 24 hr 500 mg PO BID diabetes 09/3004/16/25 History tablet,extended release (gastric retention) pentoxifylline 400 mg 1 tab PO TID circulation 09/0604/16/25 History tablet,extended release acetaminophen 500 mg tablet 1,000 mg PO QHS PRN pain 0 01/08/25 Unknown History (Acetaminophen Extra Strength) cetirizine 10 mg tablet (24Hour 10 mg PO DAILY PRN all ergy symptoms 01/08/25 Unknown History Allergy) diosmin complex no.1 630 mg tablet 1 tab PO DAILY 12/2204/15/25 History (Vasculera) [id number] 1 tab PO DAILY vitamin 04/16/25 History tablet (A Thru Z High Potency tablet) simvastatin 20 mg tablet 20 mg PO QHS cholesterol 04/15/25 History apixaban 5 mg tablet (Eliquis) 5 mg PO BID blood thinn er 90 days 01/23/25 04/16/25 Rx #180 tabs diltiazem HCl 240 mg 240 mg PO DAILY heart rate 3 01/23/25 04/16/25 Rx capsule,extended release 24 hr months #90 caps (Cardizem CD) metoprolol tartrate 50 mg tablet 50 mg PO BID blood pr essure 90 01/23/25 04/16/25 Rx days #180 tabs biotin 5,000 mcg sublingual tablet 5,000 mcg sublingua l DAILY 04/16/25 04/15/25 History supplement semaglutide 0.25 mg or 0.5 mg (2 0.5 mg subcut QWEEK d iabetes 04/16/25 Unknown History mg/1.5 mL) subcutaneous pen injector (Ozempic) amiodarone 200 mg tablet 200 mg PO BID #60 tabs 04/26 Unknown Rx guaifenesin 600 mg tablet, 600 mg PO BID #20 tabs 05/15 Unknown Rx extended release 12 hr (Mucinex) metolazone 5 mg tablet 5 mg PO DAILY #30 tabs 04/26 Unknown Rx Allergy/AdvReac Type Severity Reaction Status Date / Time enoxaparin (From Lovenox) Allergy Unknown Verified 04/26/25 21:15 oxycodone Allergy Unknown Verified 04/26/25 21:15 Penicillins (PCN) Allergy Unknown Verified 04/26/25 21:15 Family History Father Heart disease Hypertension Heart failure Mother Kidney disease Heart disease Cancer Surgical History History of lumpectomy of right breast History of lumbar laminectomy History of total replacement of both hip joints History of total bilateral knee replacement (TKR) Social History household members: spouse Smoking Status: Never smoker alcohol intake: never substance use type: does not use Objective Data Objective Data Vital Signs: Vital Signs Last response 3 Temperature 35.8 C L 04/27/25 06:33 Temperature Source Temporal 04/27/25 06:33 Pulse Rate 115 H 04/27/25 06:45 Respiratory Rate 20 H 04/27/25 06:45 Respiratory Effort Normal 04/27/25 07:30 Respiratory Depth Shallow 04/27/25 07:30 Respiratory Pattern Normal 04/27/25 07:30 Blood Pressure 105/81 H 04/27/25 06:45 Blood Pressure Mean 89 04/27/25 06:45 Blood Pressure Source Monitor 04/27/25 06:45 Blood Pressure Position Semi-Fowlers 04/27/25 06:45 Blood Pressure Location Right Arm 04/27/25 06:45 Pulse Ox 98 04/27/25 07:19 Oxygen Delivery Method Nasal Cannula 04/27/25 07:30 Oxygen Flow Rate (L/min) 2 04/27/25 07:30 Fraction of Inspired Oxygen (FIO2) 2 04/27/25 02:48 EtCo2 - Document during CPR and with ROSC 108 04/27/25 01:27 I&O: I&O Last 24 Hours 3 04/26/25 04/26/25 04/27/25 11:59 23:59 11:59 Intake Total 1215 / 1215 886 / 886 Output Total / Balance 1215 / 1215 881 / 881 I&O: Total Stay 3 04/26/25 20:36 thru 04/27/25 06:58 Intake Total 2101 Output Total 5 Balance 2095 Current Meds Ordered / Administered: Current meds ordered / Administered 3 Generic Name Dose Route Start Last Admin Trade Name Freq PRN Reason Stop Dose Admin Acetaminophen 650 mg 04/27/25 06:12 Acetaminophen 325 Mg Tablet PO Q4H PRN PRN Fever, pain 1-08/30 Al Hydroxide/Mg Hydroxide 30 ml 04/27/25 06:12 Mag Hydrox/Al Hydrox/Simeth 30 Ml Udc PO Q6H PRN PRN Gastric Burning Amiodarone HCl 200 mg 04/27/25 08:00 Amiodarone 200 Mg Tablet PO BIDCM [facility] Atorvastatin Calcium 10 mg 04/27/25 22:00 Atorvastatin Calcium 10 Mg Tablet PO QHS [facility] Calamine/Phenol 1 applic 04/27/25 10:00 Menthol/Lanolin/Calamine/Znox 113 Gm Tube TOPICAL 4X/DAY [facility] Protocol Gabapentin 300 mg 04/27/25 22:00 Gabapentin 300 Mg Capsule PO QHS [facility] Glucagon 1 mg 04/27/25 06:12 Glucagon 1 Mg/Ml Syringe IM X1 PRN HYPOGLYCEMIA Protocol Guaifenesin 10 ml 04/27/25 06:12 Guaifenesin 10 Ml Udc (200mg/10ml) PO Q4H PRN PRN COUGH Pantoprazole Sodium 80 mg/ 100 mls @ 10 mls/hr 04/26/25 21:09 04/27/25 06:58 Sodium Chloride CONT INF 10 mls/hr Q10H SERG Administration Dextrose 250 mls @ 0 mls/hr 04/27/25 06:12 Dextrose 10%-Water IV .Q0M PRN HYPOGLYCEMIA Protocol As Directed Sodium Chloride 250 mls @ 15 mls/hr 04/27/25 06:13 IV .[id number] PRN Saline Flush Sodium Chloride 250 mls @ 15 mls/hr 04/27/25 06:13 IV .[id number] PRN Additional IVPB Infusion Insulin Human Lispro 0 unit 04/27/25 07:00 04/27/25 07:02 Insulin Lispro 100 Unit/Ml Insuln.Pen SC Not Given Q6H [facility] Protocol Levothyroxine Sodium 100 mcg 04/27/25 06:12 04/27/25 06:44 Levothyroxine 100 Mcg Tablet PO Not Given DAILY@0600 [facility] Ondansetron HCl 4 mg 04/27/25 06:12 Ondansetron 4 Mg/2 Ml Vial IV Q8H PRN PRN NAUSEA/VOMITING Prochlorperazine Edisylate 5 mg 04/27/25 06:12 Prochlorperazine 10 Mg/2 Ml Vial IV Q4H PRN PRN Breakthrough Nausea/Vomiting Sodium Chloride 10 - 40 ml 04/27/25 06:13 0.9% Saline Lock 10 Ml Syringe IV UD PRN SALINE FLUSH Lab / Micro Data 04/27/25 12:15 04/26/25 20:45 Labs: Laboratory Results - last 24 hr 04/26/25 20:45: WBC 13.7 H, RBC 2.56 L, Hgb 7.1 L, Hct 23.0 L, MCV 89.8, MCH 27.7, MCHC 30.9 L, RDW Std Deviation 53.1 H, RDW Coeff of Marcial 16.5 H, Plt Count 339, MPV 10.4, Immature Gran % (Auto) 1.700 H, Neut % (Auto) 80.5 H, Lymph % (Auto) 11.3 L, Clay % (Auto) 5.3, Eos % (Auto) 0.8, Baso % (Auto) 0.4, Absolute Neuts (auto) 11.1 H, Absolute Lymphs (auto) 1.55, Nucleated RBC % 0, PT 20.4 H, INR 1.7, APTT 31.6, Sodium 140, Potassium 4.6, Chloride 105, Carbon Dioxide 22.7, Anion Gap 12, BUN 55 H, Creatinine 1.39 H, Estim Creat Clear Calc 31.24 L, Est GFR (MDRD) Non-Af 37 L, BUN/Creatinine Ratio 39.6 H, Glucose 183 H, Calcium 8.4 04/26/25 21:11: Blood Type O POSITIVE, Antibody Screen NEGATIVE, Crossmatch See Detail 04/27/25 05:35: Hgb 8.3 L, Hct 25.4 L 04/27/25 06:57: POC Glucose 110 H Micro: Microbiology 04/27/25 06:38 Wound - Leg, Right Skin and Soft Tissue MRSA/MSSA (PCR - Final 04/26/25 21:08 Stool Stool Occult Blood (ANDREA) - Final Occult Blood Positive Assessment and Plan . Assessment and plan: Physical Exam: Gen - NAD, obese HEENT - MMM. Sclera anicteric Resp - CTAB. Breathing nonlabored CV - RRR. No m/g/r Abd - Soft, NT, ND Ext - No c/c. +LE edema Skin - No rashes? Neuro - Grossly nonfocal. Alert and oriented I have reviewed the pertinent vital sign, laboratory, and imaging data. ASSESSMENT: # Acute GI bleed - bloody diarrhea per pt. Reports receiving eliquis the day prior to onset of sx while still in hospital # Hypotension # Acute hypoxic respiratory failure # Afib w/ RVR - on amio/eliquis at home # HFpEF # R breast Ca s/p lumpectomy # Chronic lymphedema # CKD requiring prior temporary HD # HTN # DM with neuropathy # Chronic anemia PLAN: -On 2L NC, wean to keep sats > 90%. Repeat ABG/CXR if worsening -Monitor for recurrent hypotension -Cont PPI gtt. GI consulted, tentative plan for endoscopy today -Follow CBC, monitor for recurrent bleeding. s/p 2U pRBC and 1U PCC on admit. -Start IV amio gtt for now given worsening RVR. Can resume PO amio if remains stable after endoscopy -Monitor for worsening volume overload, may need some gentle diuresis if can tolerate -SQ insulin FEN/GI: NPO Proph DVT/GI: SCDs, PPI gtt Code status: DNR but OK with intubation Critical Care Time: 60 mins The entirety of this encounter was done via telemedicine using both audio and video. Consent was obtained.
[2025-04-27] MEDS: Amiodarone 150 MG in Dextrose 5%-Water (100mL Bag) 100 ML 600 MG IV BOLUS (11:54)
[2025-04-27] MEDS: 0.9% Saline Lock 10 ML Syringe IV ×2 (11:57→12:16)
[2025-04-27] MEDS: Amiodarone 360 MG in Dextrose 5% Viaflo Bag 192.8 ML 33.3 MG CONT INF (12:17)
[2025-04-27 12:30] LABS: Hemoglobin 7.9 g/dL (12.0-15.0)
[2025-04-27 12:39] LABS: Bedside Glucose 133 mg/dL (74-106)
[2025-04-27] MEDS: Amiodarone 360 MG in Dextrose 5% Viaflo Bag 192.8 ML 16.7 MG CONT INF (17:38)
--- NOTE | 2025-04-27 17:50 | CASEMGMT ---
RN JUSTIN readmission note: Index admission: 04/16 thru 04/26 w/CHF exac. FERMÍN during hospital stay requiring temporary HD, pt also had PAF w/RVR, & recurrent pleural effusion requiring thoracentesis 04/19 as well as paracentesis. Pt had reaccumulation w/repeat thoracentesis 04/23. Pt has hx of PAF, CKD stage III, HF, Htn, HLD, DM, BLE venous stasis disease, chronic lymphedema. Pt did not qualify for home O2 @ dc. Pt dc'd home 04/26 w/[facility]. Rx's for amiodarone, mucinex, and metolazone sent to [facility] pharmacy and furosemide was discontinued. Eliquis had been placed on hold for procedures, but was resumed prior to discharge. This was continued on pt's home medications. Current admission: Admit 04/27 w/dx: hypotension, GIB on NOAC, PAF w/RVR. RN CM to room. Pt resting in bed, @ bedside. Introduced self and role. Pt states when she dc'd home yesterday morning (04/26) she felt good. Pt states she did get all of the new Rx's @ discharge but had not started taking any of them yet. Once she was home she started having bloody diarrhea and then in the evening she felt like she was going to pass out and then became nauseous & had emesis. Zoeyad was called. [facility] was slated to do SOC for this AM & she states her daughter did call them and notified them of her admission to [facility] [place]. She was made aware therapy would be working w/her and give recommendations. She states if she is weaker than she was and if SNF is recommended, she would consider going, but she prefers to discharge home and would like to still have [facility] @ discharge, declining wanting list of other [facility] options. Pt and deny having other discharge needs or concerns. Plan: Home w/HHC. PT/OT evals pending. Follow for any recommendations. Mingo ESPAÑAN RN JUSTIN
[2025-04-27 18:04] LABS: Bedside Glucose 107 mg/dL (74-106)
--- NOTE | 2025-04-27 19:10 | EX.PCM.CON.G ---
HPI Consult Data Date of Consult: 04/27/25 HPI Narrative Reason for Consultation: GI bleed HPI Narrative: JESS JACKSON, is a 84 F who presents with multiple episodes of lower GI bleeding and vomiting. She has a past medical history significant for paroxysmal A-fib on Eliquis who was recently discharged after being admitted for new onset right-sided pleural effusion, acute on chronic CHF and acute kidney injury. As per her grand daughter she was brought in by EMS increasing weakness. There was noted diarrhea states possibly bloody stools. She was recently discharged hospital 2 PM. She was in the hospital for 10 days per daughter. Also she was diagnosed with pneumonia which was treated with antibiotics had pleural effusion right side with thoracentesis x 2 last time was 4 days ago. When she came into the hospital on her last visit her hemoglobin was 12.4 and when she was DC'd from the hospital was 8.3. When she came back in the hospital she was noted to be hypotensive and tachycardic. She was given a reversal agent for Eliquis. Due to her hypotension she was also given 2 units of packed red blood cells. Her current hemoglobin is 7.9. She has not had any more bowel movements since completing a bowel prep. [facility] Medical History Diabetes Kidney disease Non-smoker Venous (peripheral) insufficiency Atrial fibrillation CHF (congestive heart failure) Venous stasis ulcer Hyperpigmentation of skin Lipodermatosclerosis of both lower extremities Right leg swelling Left leg swelling Varicose veins of lower extremity with inflammation, 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 Chronic venous insufficiency Generalized osteoarthrosis History of right breast cancer Cardiomegaly Home Medications ?Medication ?Instructions ?Recorded ?Last Taken ?Type gabapentin 300 mg capsule 300 mg PO QHS Neuropathy 09/30/17 04/15/25 History (Neurontin) levothyroxine 100 mcg tablet 100 mcg PO DAILY thyroid 09/30/17 04/16/25 History lisinopril 40 mg tablet 40 mg PO DAILY blood pressure 09/30/17 04/15/25 History metformin 500 mg 24 hr 500 mg PO BID diabetes 09/30/17 04/16/25 History tablet,extended release (gastric retention) pentoxifylline 400 mg 1 tab PO TID circulation 09/30/17 04/16/25 History tablet,extended release acetaminophen 500 mg tablet 1,000 mg PO QHS PRN pain 01/08/25 Unknown History (Acetaminophen Extra Strength) cetirizine 10 mg tablet (24Hour 10 mg PO DAILY PRN allergy symptoms 01/08/25 Unknown History Allergy) diosmin complex no.1 630 mg tablet 1 tab PO DAILY 01/08/25 04/15/25 History (Vasculera) fhhlnyycvqyv-jqfhkuun-uyfvnf 1 tab PO DAILY vitamin 01/08/25 04/16/25 History tablet (A Thru Z High Potency tablet) simvastatin 20 mg tablet 20 mg PO QHS cholesterol 01/08/25 04/15/25 History apixaban 5 mg tablet (Eliquis) 5 mg PO BID blood thinner 90 days 01/23/25 04/16/25 Rx #180 tabs diltiazem HCl 240 mg 240 mg PO DAILY heart rate 3 01/23/25 04/16/25 Rx capsule,extended release 24 hr months #90 caps (Cardizem CD) metoprolol tartrate 50 mg tablet 50 mg PO BID blood pressure 90 01/23/25 04/16/25 Rx days #180 tabs biotin 5,000 mcg sublingual tablet 5,000 mcg sublingual DAILY 04/16/25 04/15/25 History supplement semaglutide 0.25 mg or 0.5 mg (2 0.5 mg subcut QWEEK diabetes 04/16/25 Unknown History mg/1.5 mL) subcutaneous pen injector (Ozempic) amiodarone 200 mg tablet 200 mg PO BID #60 tabs 04/26/25 Unknown Rx guaifenesin 600 mg tablet, 600 mg PO BID #20 tabs 04/26/25 Unknown Rx extended release 12 hr (Mucinex) metolazone 5 mg tablet 5 mg PO DAILY #30 tabs 04/26/25 Unknown Rx Allergy/AdvReac Type Severity Reaction Status Date / Time enoxaparin (From Lovenox) Allergy Unknown Verified 04/26/25 21:15 oxycodone Allergy Unknown Verified 04/26/25 21:15 Penicillins (PCN) Allergy Unknown Verified 04/26/25 21:15 Family History Father Heart disease Hypertension Heart failure Mother Kidney disease Heart disease Cancer Surgical History History of lumpectomy of right breast History of lumbar laminectomy History of total replacement of both hip joints History of total bilateral knee replacement (TKR) Social History household members: spouse Smoking Status: Never smoker alcohol intake: never substance use type: does not use ROS Constitutional Constitutional: Denies fatigue, fever(s), poor appetite, weight gain or weight loss Gastrointestinal Gastrointestinal: Denies belching, bloating, change in bowel habits, change in stool character, chewing difficulty, coffee ground emesis, constipation, cramping, diarrhea, dyspepsia, dysphagia, early satiety, excessive flatus, fecal incontinence, heartburn, hematemesis, hematochezia, hemorrhoids, loose stools, melena, nausea, odynophagia, rectal bleeding, tenesmus, vomiting or weight changes Physical Exam Const alert, oriented x3, no apparent distress and healthy appearing General Appearance: cooperative GI normal to inspection, nondistended, normoactive bowel sounds, soft to palpation, non-tender and non-distended Percussion: normal to percussion Rectal Exam: deferred Lab / Micro Data 04/27/25 12:15 04/26/25 20:45 Labs: Laboratory Results - last 24 hr 04/26/25 20:45: WBC 13.7 H, RBC 2.56 L, Hgb 7.1 L, Hct 23.0 L, MCV 89.8, MCH 27.7, MCHC 30.9 L, RDW Std Deviation 53.1 H, RDW Coeff of Marcial 16.5 H, Plt Count 339, MPV 10.4, Immature Gran % (Auto) 1.700 H, Neut % (Auto) 80.5 H, Lymph % (Auto) 11.3 L, [place] % (Auto) 5.3, Eos % (Auto) 0.8, Baso % (Auto) 0.4, Absolute Neuts (auto) 11.1 H, Absolute Lymphs (auto) 1.55, Nucleated RBC % 0, PT 20.4 H, INR 1.7, APTT 31.6, Sodium 140, Potassium 4.6, Chloride 105, Carbon Dioxide 22.7, Anion Gap 12, BUN 55 H, Creatinine 1.39 H, Estim Creat Clear Calc 31.24 L, Est GFR (MDRD) Non-Af 37 L, BUN/Creatinine Ratio 39.6 H, Glucose 183 H, Calcium 8.4 04/26/25 21:11: Blood Type O POSITIVE, Antibody Screen NEGATIVE, Crossmatch See Detail 04/27/25 05:35: Hgb 8.3 L, Hct 25.4 L 04/27/25 06:57: POC Glucose 110 H 04/27/25 12:14: POC Glucose 133 H 04/27/25 12:15: Hgb 7.9 L, Hct 24.0 L 04/27/25 17:45: POC Glucose 107 H Micro: Microbiology 04/27/25 06:38 Wound - Leg, Right Skin and Soft Tissue MRSA/MSSA (PCR - Final 04/26/25 21:08 Stool Stool Occult Blood (ANDREA) - Final Occult Blood Positive Assessment & Plan Assessment/Plan (1) GI (gastrointestinal bleed): (2) Atrial fibrillation with RVR: PLAN: Plan 84 y/o F with acute GI bleed. She re-presents to the [facility] ED on 04/26/2025 with increasing weakness, malaise in addition to concern for bloody diarrhea with intermittent abdominal discomfort with no nausea or emesis and upon arrival patient noted to be significantly tachycardic in A-fib. She is status post reversal of anticoagulation. She will need to undergo an upper or lower endoscopy to evaluate her upper and lower GI tract. She was explained alternatives, risk, benefits including and not withstanding bleeding, infection, perforation, need for emergent urgent . She will have an ASA of 3. Charges/Coding Visit Charges Inpatient E&M: 06633 Init Hosp L3
--- NOTE | 2025-04-27 21:55 | PCM.HOSP.N ---
Hospitalist Note Patient requesting sleeping pill. Notes melatonin does not work she notes. Will trial low dose trazodone.
[2025-04-27] MEDS: Menthol/Lanolin/Calamine/Znox 113 GM Tube 1 APPLIC TOPICAL (22:23)
[2025-04-27] MEDS: Atorvastatin Calcium 10 MG Tablet PO (22:23)
[2025-04-27] MEDS: Gabapentin 300 MG Capsule PO (22:23)
[2025-04-27] MEDS: traZODone 50 MG Tablet PO (22:23)
[2025-04-27 22:51] LABS: Bedside Glucose 97 mg/dL (74-106)
[2025-04-28] VITALS (24 sets, daily range): BP systolic 97–119; BP diastolic 52–85; PULSE 102–133; RESP 19–28; TEMP 36.5–36.7; O2SAT 86–114; BMI 41.2
[2025-04-28] MEDS: Pantoprazole Sodium 80 MG in 0.9% Normal Saline (100mL Bag) 80 ML 10 MG CONT INF (02:42)
[2025-04-28] MEDS: Levothyroxine 100 MCG Tablet PO (05:24)
[2025-04-28] MEDS: Amiodarone 360 MG in Dextrose 5% Viaflo Bag 192.8 ML 16.7 MG CONT INF (05:51)
[2025-04-28 05:56] LABS: Absolute Lymphocyte Count 1.54 X10^3/uL (0.83-4.51); Basophil# 0.07 X10^3/uL; Basophil% 0.6 % (0-1); Eosinophil# 0.38 X10^3/uL; Eosinophils% 3.2 % (0-5); Hematocrit 22.5 % (37-47); Hemoglobin 7.3 g/dL (12.0-15.0); Lymphocyte # 1.54 X10^3/ul (0.83-4.51); Lymphocyte % 12.8 % (19-41); Mean Corp Hgb Conc 32.4 g/dL (32-36); Mean Corpuscular Hgb 28.6 pg (27.0-32.0); Mean Corpuscular Volume 88.2 fL (81-99); Mean Platelet Vol. 10.3 fl (6.2-12.0); Monocyte# 0.87 X10^3/uL; Monocyte% 7.2 % (0-10); NRBC Flagged by Analyzer 0 % (0-5); Neutrophil # 9.03 X10^3/uL (2.7-7.7); Platelet Count 238 K/mm3 (150-450); RBC Distribution Width CV 16.3 % (11.6-14.6); RBC Distribution Width SD 51.1 fl (35.1-43.9); Red Blood Count 2.55 M/mm3 (4.2-5.4)
[2025-04-28 06:23] LABS: AST(SGOT) 26 U/L (<=31); Alanine Aminotransfer ALT/SGPT 16 U/L (<=34); Albumin, Serum 2.3 g/dL (3.4-4.8); Alkaline Phosphatase 61 U/L (35-104); Anion Gap 9 (5-15); BUN 37 mg/dL (4-19); BUN/Creat Ratio 33.2 RATIO (10-20); Calcium,Total 8.1 mg/dL (7.6-11.0); Chloride 107 mmol/L (98-108); Creatinine, Serum 1.11 mg/dL (0.70-1.20); EST Glomerular Filtration Rate 49 (>60); Estimated Creatinine Clearance 39.93 ml/min (50-250); Globulin 2.4 g/dL (2.2-4.2); Glucose 119 mg/dL (70-99); Magnesium 1.7 mg/dL (1.5-2.2); Potassium 3.9 mmol/L (3.3-5.1); Protein, Total 4.6 g/dL (5.9-8.4); Sodium Level 140 mmol/L (133-145); Total Bilirubin 0.35 mg/dL (0.00-1.30)
--- NOTE | 2025-04-28 06:55 | PN.HOSP_ITS ---
Reason for Visit Reason for Visit: Diagnoses Acute posthemorrhagic anemia (04/27/25) Unspecified atrial fibrillation (04/27/25) Hypotension, unspecified (04/27/25) Gastrointestinal hemorrhage, unspecified (04/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 Tolerated colon prep yesterday. Denies hematochezia. Objective Data Objective Data Vital Signs: Vital Signs Temp Pulse Resp BP Pulse Ox O2 Del Method O2 Flow Rate 36.6 C 118 H 23 H 99/70 95 Bi-pap 2 04/28/25 05:00 04/28/25 06:00 04/28/25 06:00 04/28/25 06:00 04/28/25 06:00 04/28/25 06:00 04/27/25 20:00 FiO2 2 04/27/25 02:48 Oxygen Flow Rate (L/min) 2 Oxygen Delivery Method Bi-pap Weight: 98.974 kg Body Mass Index (BMI) 41.2 Intake & Output: Intake and Output for Last 24 Hours 04/26/25 04/27/25 04/28/25 23:59 23:59 23:59 Intake Total 1215 / 1215 1315.60 / 1315.60 600 / 600 Output Total 1555 / 1805 550 / 550 Balance 1215 / 1215 -239.40 / -489.40 50 / 50 Lab / Micro Data 04/28/25 05:40 04/28/25 05:40 Labs: Laboratory Results - last 24 hr 04/27/25 06:57: POC Glucose 110 H 04/27/25 12:14: POC Glucose 133 H 04/27/25 12:15: Hgb 7.9 L, Hct 24.0 L 04/27/25 17:45: POC Glucose 107 H 04/27/25 22:22: POC Glucose 97 04/28/25 05:40: WBC 12.0 H, RBC 2.55 L, Hgb 7.3 L, Hct 22.5 L, MCV 88.2, MCH 28.6, MCHC 32.4, RDW Std Deviation 51.1 H, RDW Coeff of Marcial 16.3 H, Plt Count 238, MPV 10.3, Immature Gran % (Auto) 1.200 H, Neut % (Auto) 75.0 H, Lymph % (Auto) 12.8 L, [place] % (Auto) 7.2, Eos % (Auto) 3.2, Baso % (Auto) 0.6, Absolute Neuts (auto) 9.0 H, Absolute Lymphs (auto) 1.54, Nucleated RBC % 0, Sodium 140, Potassium 3.9, Chloride 107, Carbon Dioxide 24.0, Anion Gap 9, BUN 37 H, Creatinine 1.11, Estim Creat Clear Calc 39.93 L, Est GFR (MDRD) Non-Af 49 L, B UN/Creatinine Ratio 33.2 H, Glucose 119 H, Calcium 8.1, Magnesium 1.7, Total Bilirubin 0.35, AST 26, ALT 16, Alkaline Phosphatase 61, Total Protein 4.6 L, A lbumin 2.3 L, Globulin 2.4, Albumin/Globulin Ratio 1.0 Micro: Microbiology 04/27/25 06:38 Wound - Leg, Right Skin and Soft Tissue MRSA/MSSA (PCR - Final 04/26/25 21:08 Stool Stool Occult Blood (ANDREA) - Final Occult Blood Positive Physical Exam Const alert and no apparent distress HEENT head/scalp atraumatic and moist oral mucous membranes Resp normal respiratory effort, no retractions, no use of accessory muscles and clear to auscultation bilaterally Cardio regular rate, regular rhythm, S1 normal heart sound and S2 normal heart sound GI normal to inspection, nondistended, normoactive bowel sounds, soft to palpation, non-tender and non-distended Neuro Sensorium / Orientation: awake and alert Assessment & Plan Assessment/Plan (1) Transient hypotension: PLAN: BP transiently down to 58/41, but has recovered. 2/2 ABLA + antihypertensives. Monitor. improved. Monitor (2) ABLA (acute blood loss anemia): PLAN: 2/2 GIB complicated by apixaban transfused 2 units PRBCs. Monitor. Hg down to 7.3 today. Will monitor. (3) GI (gastrointestinal bleed): PLAN: on PPI gtt GI consult. Completed prep on 04/27. (4) Atrial fibrillation with RVR: PLAN: pAfib w RVR already on PO amio. Started on Amiodaron gtt. apixaban held given the GIB. Timing of resumption TBD. Resume PO diltiazem and metoprolol with hold parameters. PLAN: Plan chronic conditions: * DM2: metformin held. SSI. * HFpEF: monitor for volume overload. EF 55-60%. * hypothyroidism: levothyroxine VTE prophylaxis: SCDs. Transfer to PCU. Charges/Coding Visit Charges Inpatient E&M: 98378 Subs Hosp L2
--- NOTE | 2025-04-28 08:50 | PCM.PN.TICU ---
Objective Data Objective Data Vital Signs: Vital Signs Last response Temperature 36.6 C 04/28/25 05:00 Temperature Source Oral 04/28/25 05:00 Pulse Rate 126 H 04/28/25 07:00 Respiratory Rate 21 H 04/28/25 07:00 Respiratory Effort Normal 04/27/25 16:00 Respiratory Depth Shallow 04/27/25 16:00 Respiratory Pattern Normal 04/27/25 16:00 Blood Pressure 114/67 04/28/25 07:00 Blood Pressure Mean 82 04/28/25 07:00 Blood Pressure Source Monitor 04/27/25 18:00 Blood Pressure Position Semi-Fowlers 04/27/25 18:00 Blood Pressure Location Right Arm 04/27/25 18:00 Pulse Ox 94 04/28/25 07:07 Oxygen Delivery Method Room Air 04/28/25 07:07 Oxygen Flow Rate (L/min) 2 04/27/25 20:00 Fraction of Inspired Oxygen (FIO2) 2 04/27/25 02:48 EtCo2 - Document during CPR and with ROSC 108 04/27/25 01:27 I&O: I&O Last 24 Hours 04/27/25 04/27/25 04/28/25 11:59 23:59 11:59 Intake Total 886 / 1315.60 429.60 / 1315.60 600 / 600 Output Total 655 / 1805 900 / 1805 550 / 550 Balance 231 / -489.40 -470.40 / -489.40 50 / 50 I&O: Total Stay 04/26/25 20:36 thru 04/28/25 06:00 Intake Total 3130.60 Output Total 2105 Balance 1025.60 Current Meds Ordered / Administered: Current meds ordered / Administered Generic Name Dose Route Start Last Admin Trade Name Freq PRN Reason Stop Dose Admin Acetaminophen 650 mg 04/27/25 06:12 Acetaminophen 325 Mg Tablet PO Q4H PRN PRN Fever, pain 1-10/10 Al Hydroxide/Mg Hydroxide 30 ml 04/27/25 06:12 Mag Hydrox/Al Hydrox/Simeth 30 Ml Udc PO Q6H PRN PRN Gastric Burning Amiodarone HCl 200 mg 04/27/25 08:00 04/27/25 13:19 Amiodarone 200 Mg Tablet PO Not Given BIDCM [facility] Atorvastatin Calcium 10 mg 04/27/25 22:00 04/27/25 22:23 Atorvastatin Calcium 10 Mg Tablet PO 10 mg QHS SERG Administration Calamine/Phenol 1 applic 04/27/25 10:00 04/27/25 22:23 Menthol/Lanolin/Calamine/Znox 113 Gm Tube TOPICAL 1 applic 4X/DAY SREG Administration Protocol Gabapentin 300 mg 04/27/25 22:00 04/27/25 22:23 Gabapentin 300 Mg Capsule PO 300 mg QHS SERG Administration Glucagon 1 mg 04/27/25 06:12 Glucagon 1 Mg/Ml Syringe IM X1 PRN HYPOGLYCEMIA Protocol Guaifenesin 10 ml 04/27/25 06:12 Guaifenesin 10 Ml Udc (200mg/10ml) PO Q4H PRN PRN COUGH Pantoprazole Sodium 80 mg/ 100 mls @ 10 mls/hr 04/26/25 21:09 04/28/25 02:42 Sodium Chloride CONT INF 10 mls/hr Q10H SERG Administration Dextrose 250 mls @ 0 mls/hr 04/27/25 06:12 Dextrose 10%-Water IV .Q0M PRN HYPOGLYCEMIA Protocol As Directed Sodium Chloride 250 mls @ 15 mls/hr 04/27/25 06:13 IV .[id number] PRN Saline Flush Sodium Chloride 250 mls @ 15 mls/hr 04/27/25 06:13 IV .[id number] PRN Additional IVPB Infusion Amiodarone HCl 360 mg/ 200 mls @ 16.667 mls/hr 04/27/25 16:30 04/28/25 05:51 Dextrose CONT INF 04/28/25 10:29 0.5 mg/min .Q12H SERG 16.7 mls/hr Administration 0.5 MG/MIN Insulin Human Lispro 0 unit 04/28/25 07:00 04/28/25 06:40 Insulin Lispro 100 Unit/Ml Insuln.Pen SC Not Given ACHS [facility] Protocol Levothyroxine Sodium 100 mcg 04/27/25 06:12 04/28/25 05:24 Levothyroxine 100 Mcg Tablet PO 100 mcg DAILY@0600 SERG Administration Ondansetron HCl 4 mg 04/27/25 06:12 Ondansetron 4 Mg/2 Ml Vial IV Q8H PRN PRN NAUSEA/VOMITING Prochlorperazine Edisylate 5 mg 04/27/25 06:12 Prochlorperazine 10 Mg/2 Ml Vial IV Q4H PRN PRN Breakthrough Nausea/Vomiting Sodium Chloride 10 - 40 ml 04/27/25 06:13 04/27/25 12:16 0.9% Saline Lock 10 Ml Syringe IV 10 ml UD PRN Administration SALINE FLUSH Lab / Micro Data 04/28/25 05:40 04/28/25 05:40 Labs: Laboratory Results - last 24 hr 04/27/25 12:14: POC Glucose 133 H 04/27/25 12:15: Hgb 7.9 L, Hct 24.0 L 04/27/25 17:45: POC Glucose 107 H 04/27/25 22:22: POC Glucose 97 04/28/25 05:40: WBC 12.0 H, RBC 2.55 L, Hgb 7.3 L, Hct 22.5 L, MCV 88.2, MCH 28.6, MCHC 32.4, RDW Std Deviation 51.1 H, RDW Coeff of Marcial 16.3 H, Plt Count 238, MPV 10.3, Immature Gran % (Auto) 1.200 H, Neut % (Auto) 75.0 H, Lymph % (Auto) 12.8 L, [place] % (Auto) 7.2, Eos % (Auto) 3.2, Baso % (Auto) 0.6, Absolute Neuts (auto) 9.0 H, Absolute Lymphs (auto) 1.54, Nucleated RBC % 0, Sodium 140, Potassium 3.9, Chloride 107, Carbon Dioxide 24.0, Anion Gap 9, BUN 37 H, Creatinine 1.11, Estim Creat Clear Calc 39.93 L, Est GFR (MDRD) Non-Af 49 L, BUN/Creatinine Ratio 33.2 H, Glucose 119 H, Calcium 8.1, Magnesium 1.7, Total Bilirubin 0.35, AST 26, ALT 16, Alkaline Phosphatase 61, Total Protein 4.6 L, Albumin 2.3 L, Globulin 2.4, Albumin/Globulin Ratio 1.0 Micro: Microbiology 04/27/25 06:38 Wound - Leg, Right Skin and Soft Tissue MRSA/MSSA (PCR - Final Assessment and Plan . Assessment and plan: Subjective: No acute events o/n. No further bleeding noted. However having some mild gas pain/bloating Physical Exam: Gen - NAD, obese HEENT - MMM. Sclera anicteric Resp - Diminished in bases. Breathing nonlabored CV - Tachycardic, irregular. No m/g/r Abd - Soft, NT, ND Ext - No c/c. +LE edema Skin - No rashes? Neuro - Grossly nonfocal. Alert and oriented I have reviewed the pertinent vital sign, laboratory, and imaging data. ASSESSMENT: # Acute GI bleed - bloody diarrhea per pt. Reports receiving eliquis the day prior to onset of sx while still in hospital # Hypotension # Acute hypoxic respiratory failure # Afib w/ RVR - on amio/eliquis at home # HFpEF # R breast Ca s/p lumpectomy # Chronic lymphedema # CKD requiring prior temporary HD # HTN # DM with neuropathy # Chronic anemia PLAN: -On RA now, monitor sats. Encourage IS, OOB to chair. Repeat ABG/CXR if worsening -Monitor for recurrent hypotension -Cont PPI gtt. GI following. They are planning for Hgb recheck this afternoon and based on this will consider endoscopy either later today or tmrw. No recurrent bleeding/diarrhea thus far -Follow CBC. s/p 2U pRBC and 1U PCC on admit. -Cont IV amio gtt for now given worsening RVR. OK to resume PO amio now as well, GI stated OK for clear liquids for now. Give additional IV mag today as well. May need additional rate control meds if HR not improving -Monitor for worsening volume overload, will likely need to resume some gentle diuresis when stable -SQ insulin FEN/GI: Clear liquids per GI Proph DVT/GI: SCDs, PPI gtt Code status: DNR but OK with intubation Updated son at bedside Critical Care Time: 50 mins The entirety of this encounter was done via telemedicine using both audio and video. Consent was obtained.
[2025-04-28] MEDS: Amiodarone 200 MG Tablet PO (12:19)
[2025-04-28] MEDS: Menthol/Lanolin/Calamine/Znox 113 GM Tube 1 APPLIC TOPICAL ×2 (12:46→21:02)
[2025-04-28] MEDS: Magnesium Sulfate 2 GM in Dextrose 5%-Water (100mL Bag) 100 ML IV (12:47)
[2025-04-28] MEDS: 0.9% Normal Saline (250mL Bag) 250 ML 15 ML IV (12:47)
[2025-04-28] MEDS: dilTIAZem CD 240 MG Capsule PO (13:06)
[2025-04-28 13:22] LABS: Bedside Glucose 85 mg/dL (74-106)
[2025-04-28 14:03] LABS: Hematocrit 26.3 % (37-47); Hemoglobin 8.3 g/dL (12.0-15.0)
[2025-04-28 19:08] LABS: Bedside Glucose 90 mg/dL (74-106)
[2025-04-28] MEDS: Pantoprazole Sodium 40 MG in 0.9% Normal Saline (100mL MB+) 100 ML 330 MG IV (21:01)
[2025-04-28] MEDS: 0.9% Saline Lock 10 ML Syringe IV (21:01)
[2025-04-28] MEDS: Metoprolol Tartrate 50 MG Tablet PO (21:05)
[2025-04-28] MEDS: Atorvastatin Calcium 10 MG Tablet PO (21:06)
[2025-04-28] MEDS: Gabapentin 300 MG Capsule PO (21:09)
[2025-04-28 21:23] LABS: Bedside Glucose 77 mg/dL (74-106)
[2025-04-29] VITALS (15 sets, daily range): BP systolic 99–120; BP diastolic 62–77; PULSE 92–111; RESP 16–30; TEMP 36.6–37.2; O2SAT 91–100; BMI 39.1
[2025-04-29] MEDS: Levothyroxine 100 MCG Tablet PO (05:09)
[2025-04-29 05:38] LABS: Absolute Neutrophil Count 10.8 X10^3/uL (2.0-7.7); Basophil# 0.08 X10^3/uL; Basophil% 0.6 % (0-1); Eosinophil# 0.32 X10^3/uL; Eosinophils% 2.4 % (0-5); Hematocrit 24.9 % (37-47); Hemoglobin 7.9 g/dL (12.0-15.0); Lymphocyte % 8.3 % (19-41); Mean Corp Hgb Conc 31.7 g/dL (32-36); Mean Corpuscular Hgb 28.8 pg (27.0-32.0); Mean Corpuscular Volume 90.9 fL (81-99); Mean Platelet Vol. 10.1 fl (6.2-12.0); Monocyte# 0.82 X10^3/uL; Monocyte% 6.2 % (0-10); NRBC Flagged by Analyzer 0.2 % (0-5); Neutrophil # 10.81 X10^3/uL (2.7-7.7); Neutrophil % 81.7 % (47-70); Platelet Count 272 K/mm3 (150-450); RBC Distribution Width CV 16.5 % (11.6-14.6); RBC Distribution Width SD 53.1 fl (35.1-43.9); Red Blood Count 2.74 M/mm3 (4.2-5.4); White Blood Count 13.2 K/mm3 (4.4-11.0)
--- NOTE | 2025-04-29 05:55 | RAD_ITS ---
PROCEDURE: CHEST 1 VIEW (PORTABLE) 04/29/2025 REASON FOR EXAM: DYSPNEA, CHF TECHNIQUE: Frontal view of the chest. COMPARISON: 04/25/2025. FINDINGS: Increased right pleural effusion. Unchanged minimal left pleural effusion. Increased passive atelectatic airspace disease of the lower lobes. Increased pulmonary venous congestion. Enlarged cardiac silhouette. Normal mediastinum and debbie. Normal visualized pulmonary arteries. Atheromatous plaques of the visualized aortic arch and descending thoracic aorta. Diffuse spondylosis of the visualized thoracic spine. Normal visualized ribs, clavicles. Degenerative joint disease. There is no demonstrated abnormality of the visualized soft tissue structures of the upper abdomen. RAD/Chest 1 View (Portable) IMPRESSION: Increased right pleural effusion. Unchanged minimal left pleural effusion. Increased passive atelectatic airspace disease of the lower lobes. Increased pulmonary venous congestion. Enlarged cardiac silhouette. Reading [facility]
[2025-04-29 06:04] LABS: Anion Gap 10 (5-15); BUN 30 mg/dL (4-19); BUN/Creat Ratio 26.9 RATIO (10-20); Calcium,Total 8.5 mg/dL (7.6-11.0); Carbon Dioxide 24.4 mmol/L (21.0-32.0); Chloride 106 mmol/L (98-108); Creatinine, Serum 1.13 mg/dL (0.70-1.20); EST Glomerular Filtration Rate 48 (>60); Estimated Creatinine Clearance 38.07 ml/min (50-250); Glucose 104 mg/dL (70-99); Sodium Level 141 mmol/L (133-145)
--- NOTE | 2025-04-29 07:01 | PCM.PN.INT ---
Assessment & Plan Assessment/Plan (1) (HFpEF) heart failure with preserved ejection fraction: QUALIFIERS: Heart failure chronicity: acute on chronic Qualified Code(s): I50.33 - Acute on chronic diastolic (congestive) heart failure (2) Pleural effusion: (3) ABLA (acute blood loss anemia): (4) Transient hypotension: (5) Chronic anticoagulation: PLAN: Plan RECOMMENDATIONS: 1. Continue PPI therapy as ordered. 2. Tentative plans for endoscopic evaluation by gastroenterology. 3. Transfuse blood products to maintain hemoglobin at or above 7 g/dL. 4. Encourage incentive spirometer use and mobilize patient as tolerated. 5. The patient is medically stable for transfer out of the intensive care unit. Will sign off from a critical care perspective. IMPRESSIONS: 1. Acute blood loss anemia secondary to GI bleed due to apixaban Continue current supportive measures, including transfusion of blood products to maintain hemoglobin at or above 7 g/dL. Continue PPI therapy. Continue to hold systemic anticoagulation. Tentative plans for endoscopic evaluation by gastroenterology later today. 2. Recurrent bilateral pleural effusions, right greater than left Most likely secondary to heart failure with preserved ejection fraction. The patient has a history of a recurrent right-sided pleural effusion, which has proven to be transudative in nature. This is felt to be related to the patient's CHF. During prior hospitalizations, it was recommended that the patient be referred to thoracic surgery if she continues to have a recurrent effusion that is refractory to the use of diuretics. 3. Paroxysmal atrial fibrillation/hypertension/hypothyroidism/obesity/diabetes mellitus Complicates care, management, recovery and prognosis. Continue supportive measures as noted above. This note was generated with [employer]AN[employer] dictation software. It may contain incorrect words, spelling, and punctuation that were not noted in checking the note before signing. Subjective Subjective The patient was seen and examined at the bedside this morning. Events from the last 24 hours have been reviewed. The patient is currently afebrile, hemodynamically stable and maintaining appropriate oxygen saturations on room air. The patient has no specific complaints this morning. White blood cell count is mildly elevated at 13,000 with a hemoglobin of 7.9 g/dL and platelet count of 272,000. Creatinine is within normal limits. Per gastroenterology, there are tentative plans for endoscopic evaluation later today. Objective Data Objective Data The patient's most recent lab work, culture data and imaging studies have all been personally reviewed. Vital Signs: Vital Signs Temp Pulse Resp BP Pulse Ox O2 Del Method O2 Flow Rate 98 F 103 H 25 H 110/65 98 Room Air 2 04/29/25 06:00 04/29/25 06:00 04/29/25 06:00 04/29/25 06:00 04/29/25 06:00 04/29/25 06:00 04/27/25 20:00 FiO2 2 04/27/25 02:48 Oxygen Flow Rate (L/min) 2 Oxygen Delivery Method Room Air Weight: 207 lb 1.6 oz Body Mass Index (BMI) 39.1 Intake & Output: Intake and Output for Last 24 Hours 04/27/25 04/28/25 04/29/25 23:59 23:59 23:59 Intake Total 1315.60 / 1315.60 1669.75 / 1669.75 Output Total 1555 / 1805 1400 / 1400 500 / 500 Balance -239.40 / -489.40 269.75 / 269.75 -500 / -500 Lab / Micro Data Attestation: I reviewed the patient's lab results. 04/29/25 05:09 04/29/25 05:09 Labs: Laboratory Results - last 24 hr 04/28/25 11:30: Hgb 8.3 L, Hct 26.3 L 04/28/25 13:02: POC Glucose 85 04/28/25 18:49: POC Glucose 90 04/28/25 21:03: POC Glucose 77 04/29/25 05:09: WBC 13.2 H, RBC 2.74 L, Hgb 7.9 L, Hct 24.9 L, MCV 90.9, MCH 28.8, MCHC 31.7 L, RDW Std Deviation 53.1 H, RDW Coeff of Marcial 16.5 H, Plt Count 272, MPV 10.1, Immature Gran % (Auto) 0.800, Neut % (Auto) 81.7 H, Lymph % (Auto) 8.3 L, [place] % (Auto) 6.2, Eos % (Auto) 2.4, Baso % (Auto) 0.6, Absolute Neuts (auto) 10.8 H, Absolute Lymphs (auto) 1.10, Nucleated RBC % 0.2, Sodium 141, Potassium 4.0, Chloride 106, Carbon Dioxide 24.4, Anion Gap 10, BUN 30 H, Creatinine 1.13, Estim Creat Clear Calc 38.07 L, Est GFR (MDRD) Non-Af 48 L, BUN/Creatinine Ratio 26.9 H, Glucose 104 H, Calcium 8.5 Micro: Microbiology 04/27/25 06:38 Wound - Leg, Right Skin and Soft Tissue MRSA/MSSA (PCR - Final 04/26/25 21:08 Stool Stool Occult Blood (ANDREA) - Final Occult Blood Positive Radiography Diagnostic Testing: Radiology Impression Chest X-Ray 04/29/25 05:55 IMPRESSION: Increased right pleural effusion. Unchanged minimal left pleural effusion. Increased passive atelectatic airspace disease of the lower lobes. Increased pulmonary venous congestion. Enlarged cardiac silhouette. Reading Location: [place] [id number] Physical Exam Const alert, oriented x3 and no apparent distress General Appearance: cooperative HEENT normocephalic, head/scalp atraumatic and moist oral mucous membranes Eyes PERRL, EOMs intact bilaterally and conjunctivae normal Neck supple General: trachea midline Chest inspection of chest normal Resp normal respiratory effort Auscultation: diminished lung sounds; Negative for rales, rhonchi or wheezes Cardio S1 normal heart sound and S2 normal heart sound Rate: tachycardic GI normal to inspection, nondistended, normoactive bowel sounds Extremity no clubbing, cyanosis or edema Skin no rashes or lesions noted Neuro CN's II-XII intact bilaterally, moves all extremities and no focal motor deficits Psych cooperative and affect normal Charges/Coding Visit Charges Inpatient E&M: 32562 Subs Hosp L2
[2025-04-29] MEDS: dilTIAZem CD 240 MG Capsule PO (09:23)
[2025-04-29] MEDS: Amiodarone 200 MG Tablet PO ×2 (09:23→17:03)
[2025-04-29] MEDS: Pantoprazole Sodium 40 MG in 0.9% Normal Saline (100mL MB+) 100 ML 330 MG IV ×2 (09:24→22:17)
[2025-04-29] MEDS: Menthol/Lanolin/Calamine/Znox 113 GM Tube 1 APPLIC TOPICAL ×2 (09:25→22:23)
[2025-04-29 09:47] LABS: Bedside Glucose 92 mg/dL (74-106)
[2025-04-29] MEDS: Metoprolol Tartrate 50 MG Tablet PO (10:49)
[2025-04-29 11:40] LABS: Bedside Glucose 89 mg/dL (74-106)
--- NOTE | 2025-04-29 12:21 | PCM.PRE.AN2 ---
ASA Classification* ASA Classification ASA Classification: 3 Assessment & Plan Anesthesia* Anesthesia Assessment Anesthesia Assessment: Discussed sedation and/or anesthesia options, risks, benefits, and alternatives with patient/parents/legal guardian/POA. Questions invited. The patient/parents/legal guardian/POA seems to understand and agrees to proceed with anesthesia plan. Reviewed the physical assessment, medical history, allergy history and patient home medications list prior to surgery/procedure/anesthetic and documented any changes. Performed airway and anesthesia risk assessments. Anesthesia Type Anesthesia Type: MAC Anesthesia Focused Assessment* Temperature: 98.3 F Pulse Rate: 101 Blood Pressure: 110/62 Respiratory Rate: 30 Pulse Ox: 96 Oxygen Flow Rate (L/min): 2 Fraction of Inspired Oxygen (FIO2): 2 Airway Assessment Mouth opens: >3 cm Mallampati Score: II Labs Anesthesia Preop lab: CBC WBC 13.2 K/mm3 (4.4-11.0) H 04/29/25 05:09 04/29/25 RBC 2.74 M/mm3 (4.2-5.4) L 04/29/25 05:09 04/29/25 Hgb 7.9 g/dL (12.0-15.0) L 04/29/25 05:09 04/29/25 Hct 24.9 % (37-47) L 04/29/25 05:09 04/29/25 Plt Count 272 K/mm3 (150-450) 04/29/25 05:09 04/29/25 CHEMISTRY Potassium 4.0 mmol/L (3.3-5.1) 04/29/25 05:09 04/29/25 Sodium 141 mmol/L (133-145) 04/29/25 05:09 04/29/25 Magnesium 1.7 mg/dL (1.5-2.2) 04/28/25 05:40 04/28/25 Phosphorus 2.2 mg/dL (2.7-4.5) L 04/24/25 14:50 04/24/25 BUN 30 mg/dL (4-19) H 04/29/25 05:09 04/29/25 Creatinine 1.13 mg/dL (0.70-1.20) 04/29/25 05:09 04/29/25 Glucose 104 mg/dL (70-99) H 04/29/25 05:09 04/29/25 POC Glucose 89 mg/dL (74-106) 04/29/25 11:18 04/29/25 TSH 4.920 uIU/mL (0.358-3.740) H 01/08/25 10:40 01/08/25 COAG PT 20.4 SECONDS (11.7-14.9) H 04/26/25 20:45 04/26/25 Pre-Assessment Diagnosis/Proposed Procedure Planned Operative Procedure(s): EGD/colonoscopy. 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 When Was Last Pacemaker Check QUESTION #4 FULL TEXT: You/Your Family Experience fever (hyperthermia) with Anesthesia Last Oral Intake Last Oral intake: Last Oral Intake NPO since Meds taken in AM with sips of water? Meds patient instructed to take am of surgery PONV PONV - miner assistant: PONV - miner assistant Female HX of Motion Sickness HX of N/V After Surgery Non-Smoker Duration of Surgery greater than 60 minutes Number of Risk Factors PONV Score Height & Weight Height & Weight: Anesthesia: Height & Weight Height 5 ft 1 in 04/29/25 09:43 Weight: 93.939 kg 04/29/25 09:43 Body Mass Index (BMI) 39.1 04/29/25 05:26 Respiratory Assessment Respiratory Assessment - miner assistant: Respiratory Tract Infection Hx - miner assistant Hx Respiratory Tract Infection STOP Sleep Apnea STOP Sleep Apnea - miner assistant: STOP Sleep Apnea - miner assistant Hx Hypertension No 04/28/25 09:21 Hx Sleep Apnea No 04/27/25 06:12 CPAP BIPAP Do you snore loudly (louder No 04/27/25 06:12 than talking or can be heard Do you often feel tired/ No 04/27/25 06:12 fatigued/ sleepy during daytime? Has anyone observed you stop No 04/27/25 06:12 breathing during sleep? STOP Results Negative 04/27/25 06:12 QUESTION #5 FULL TEXT : Do you snore loudly (louder than talking or can be heard through closed doors)? 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 Specify any problems Hx of Preganancy in last 3 N/A 04/27/25 06:12 Months Nurse Filling Out Transfusion JGALLOWAY 04/27/25 06:12 & Questions: Date: 04/27/25 04/27/25 06:12 Time: 04/27/25 06:12 Patient unable to answer at this time (ie. confused, unrespo /Reproduction History /Reproductive History - miner assistant: /Reproductive Hx- miner assistant Hx Now Gestational Age (in weeks): EDC: Hx Hx Para Hx Section SAB Active Medications Active Medications: Current Medications Generic Name Dose Route Start Last Admin Trade Name Freq PRN Reason Stop Dose Admin Acetaminophen 650 mg 04/27/25 06:12 Acetaminophen 325 Mg Tablet PO Q4H PRN PRN Fever, pain 1-10 Al Hydroxide/Mg Hydroxide 30 ml 04/27/25 06:12 Mag Hydrox/Al Hydrox/Simeth 30 Ml Udc PO Q6H PRN PRN Gastric Burning Amiodarone HCl 200 mg 04/27/25 08:00 04/29/25 09:23 Amiodarone 200 Mg Tablet PO 200 mg BIDCM SERG Administration Atorvastatin Calcium 10 mg 04/27/25 22:00 04/28/25 21:06 Atorvastatin Calcium 10 Mg Tablet PO 10 mg QHS SERG Administration Calamine/Phenol 1 applic 04/27/25 10:00 04/29/25 09:25 Menthol/Lanolin/Calamine/Znox 113 Gm Tube TOPICAL 1 applic 4X/DAY SERG Administration Protocol Diltiazem HCl 240 mg 04/28/25 12:20 04/29/25 09:23 Diltiazem Cd 240 Mg Capsule PO 240 mg DAILY SERG Administration Protocol Gabapentin 300 mg 04/27/25 22:00 04/28/25 21:09 Gabapentin 300 Mg Capsule PO 300 mg QHS SERG Administration Glucagon 1 mg 04/27/25 06:12 Glucagon 1 Mg/Ml Syringe IM X1 PRN HYPOGLYCEMIA Protocol Guaifenesin 10 ml 04/27/25 06:12 Guaifenesin 10 Ml Udc (200mg/10ml) PO Q4H PRN PRN COUGH Dextrose 250 mls @ 0 mls/hr 04/27/25 06:12 Dextrose 10%-Water IV .Q0M PRN HYPOGLYCEMIA Protocol As Directed Sodium Chloride 250 mls @ 15 mls/hr 04/27/25 06:13 04/28/25 19:10 IV 0 mls/hr .[id number] PRN Infusion Saline Flush Sodium Chloride 250 mls @ 15 mls/hr 04/27/25 06:13 IV .[id number] PRN Additional IVPB Infusion Pantoprazole Sodium 40 mg/ 100 mls @ 330 mls/hr 04/28/25 22:00 04/29/25 10:01 Sodium Chloride IV Infused Q12 SERG Infusion Insulin Human Lispro 0 unit 04/28/25 07:00 04/29/25 11:27 Insulin Lispro 100 Unit/Ml Insuln.Pen SC Not Given ACHS [facility] Protocol Levothyroxine Sodium 100 mcg 04/27/25 06:12 04/29/25 05:09 Levothyroxine 100 Mcg Tablet PO 100 mcg DAILY@0600 SERG Administration Metoprolol Tartrate 50 mg 04/28/25 22:00 04/29/25 10:49 Metoprolol Tartrate 50 Mg Tablet PO 50 mg BID SERG Administration Protocol Nutritional Formula (Lactose Free) 120 ml 04/29/25 12:00 04/29/25 11:28 Glucerna Shake 120 Ml Liquid PO Not Given TIDCM [facility] Ondansetron HCl 4 mg 04/27/25 06:12 Ondansetron 4 Mg/2 Ml Vial IV Q8H PRN PRN NAUSEA/VOMITING Prochlorperazine Edisylate 5 mg 04/27/25 06:12 Prochlorperazine 10 Mg/2 Ml Vial IV Q4H PRN PRN Breakthrough Nausea/Vomiting Sodium Chloride 10 - 40 ml 04/27/25 06:13 04/28/25 21:01 0.9% Saline Lock 10 Ml Syringe IV 10 ml UD PRN Administration SALINE FLUSH PFSH Medical History Diabetes Kidney disease Non-smoker Venous (peripheral) insufficiency Atrial fibrillation CHF (congestive heart failure) Venous stasis ulcer Hyperpigmentation of skin Lipodermatosclerosis of both lower extremities Right leg swelling Left leg swelling Varicose veins of lower extremity with inflammation, 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 Chronic venous insufficiency Generalized osteoarthrosis History of right breast cancer Cardiomegaly Home Medications ?Medication ?Instructions ?Recorded ?Last Taken ?Type gabapentin 300 mg capsule 300 mg PO QHS Neuropathy 09/30/17 04/15/25 History (Neurontin) levothyroxine 100 mcg tablet 100 mcg PO DAILY thyroid 09/30/17 04/16/25 History lisinopril 40 mg tablet 40 mg PO DAILY blood pressure 09/30/17 04/15/25 History metformin 500 mg 24 hr 500 mg PO BID diabetes 09/30/17 04/16/25 History tablet,extended release (gastric retention) pentoxifylline 400 mg 1 tab PO TID circulation 09/30/17 04/16/25 History tablet,extended release acetaminophen 500 mg tablet 1,000 mg PO QHS PRN pain 01/08/25 Unknown History (Acetaminophen Extra Strength) cetirizine 10 mg tablet (24Hour 10 mg PO DAILY PRN allergy symptoms 01/08/25 Unknown History Allergy) diosmin complex no.1 630 mg tablet 1 tab PO DAILY 01/08/25 04/15/25 History (Vasculera) kgyrfwcaytol-giwtesza-krhyzb 1 tab PO DAILY vitamin 01/08/25 04/16/25 History tablet (A Thru Z High Potency tablet) simvastatin 20 mg tablet 20 mg PO QHS cholesterol 01/08/25 04/15/25 History apixaban 5 mg tablet (Eliquis) 5 mg PO BID blood thinner 90 days 01/23/25 04/16/25 Rx #180 tabs diltiazem HCl 240 mg 240 mg PO DAILY heart rate 3 01/23/25 04/16/25 Rx capsule,extended release 24 hr months #90 caps (Cardizem CD) metoprolol tartrate 50 mg tablet 50 mg PO BID blood pressure 90 01/23/25 04/16/25 Rx days #180 tabs biotin 5,000 mcg sublingual tablet 5,000 mcg sublingual DAILY 04/16/25 04/15/25 History supplement semaglutide 0.25 mg or 0.5 mg (2 0.5 mg subcut QWEEK diabetes 04/16/25 Unknown History mg/1.5 mL) subcutaneous pen injector (Ozempic) amiodarone 200 mg tablet 200 mg PO BID #60 tabs 04/26/25 Unknown Rx guaifenesin 600 mg tablet, 600 mg PO BID #20 tabs 04/26/25 Unknown Rx extended release 12 hr (Mucinex) metolazone 5 mg tablet 5 mg PO DAILY #30 tabs 04/26/25 Unknown Rx Allergy/AdvReac Type Severity Reaction Status Date / Time enoxaparin (From Lovenox) Allergy Unknown Verified 04/26/25 21:15 oxycodone Allergy Unknown Verified 04/26/25 21:15 Penicillins (PCN) Allergy Unknown Verified 04/26/25 21:15 Family History Father Heart disease Hypertension Heart failure Mother Kidney disease Heart disease Cancer Surgical History History of lumpectomy of right breast History of lumbar laminectomy History of total replacement of both hip joints History of total bilateral knee replacement (TKR) Social History household members: spouse Smoking Status: Never smoker alcohol intake: never substance use type: does not use Review of Systems (Anesthesia) ROS Narrative System reviewed and no additional complaints, except as documented.
--- NOTE | 2025-04-29 12:49 | PN_ITS ---
Progress Note Patient has been n.p.o. for upper endoscopy and possible colonoscopy. Physical Exam Const alert, oriented x3, no apparent distress and healthy appearing General Appearance: cooperative GI normal to inspection, nondistended, normoactive bowel sounds, soft to palpation, non-tender and non-distended Percussion: normal to percussion Rectal Exam: deferred Assessment & Plan Assessment/Plan (1) GI (gastrointestinal bleed): (2) Atrial fibrillation with RVR: PLAN: Plan 84 y/o F with acute GI bleed. She re-presents to the [facility] ED on 04/26/2025 with increasing weakness, malaise in addition to concern for bloody diarrhea with intermittent abdominal discomfort with no nausea or emesis and upon arrival patient noted to be significantly tachycardic in A-fib. She is status post reversal of anticoagulation. She will need to undergo an upper or lower endoscopy to evaluate her upper and lower GI tract. She was explained alternatives, risk, benefits including and not withstanding bleeding, infection, perforation, need for emergent urgent . She will have an ASA of 3. Visit Charges Inpatient E&M: 53323 Subs Hosp L3
[2025-04-29] MEDS: Lactated Ringers 1,000 ML 15 ML IV (12:50)
--- NOTE | 2025-04-29 12:56 | PCM.PN.HOSP ---
Reason for Visit Reason for Visit: Diagnoses Acute posthemorrhagic anemia (04/27/25) Unspecified atrial fibrillation (04/27/25) Acute on chronic diastolic (congestive) heart failure (04/27/25) Hypotension, unspecified (04/27/25) Pleural effusion, not elsewhere classified (04/27/25) Gastrointestinal hemorrhage, unspecified (04/27/25) penitentiary (current) use of anticoagulants (04/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 No further bleeding. Objective Data Objective Data Vital Signs: Vital Signs Temp Pulse Resp BP Pulse Ox O2 Del Method O2 Flow Rate 36.8 C 101 H 30 H 110/62 96 Room Air 2 04/29/25 12:23 04/29/25 12:23 04/29/25 12:23 04/29/25 12:23 04/29/25 12:23 04/29/25 10:00 04/29/25 12:23 FiO2 2 04/29/25 12:23 Oxygen Flow Rate (L/min) 2 Oxygen Delivery Method Room Air Weight: 93.939 kg Body Mass Index (BMI) 39.1 Intake & Output: Intake and Output for Last 24 Hours 04/27/25 04/28/25 04/29/25 23:59 23:59 23:59 Intake Total 1315.60 / 1315.60 1669.75 / 1669.75 150 / 150 Output Total 1555 / 1805 1400 / 1400 500 / 500 Balance -239.40 / -489.40 269.75 / 269.75 -350 / -350 Lab / Micro Data 04/29/25 05:09 04/29/25 05:09 Labs: Laboratory Results - last 24 hr 04/28/25 11:30: Hgb 8.3 L, Hct 26.3 L 04/28/25 13:02: POC Glucose 85 04/28/25 18:49: POC Glucose 90 04/28/25 21:03: POC Glucose 77 04/29/25 05:09: WBC 13.2 H, RBC 2.74 L, Hgb 7.9 L, Hct 24.9 L, MCV 90.9, MCH 28.8, MCHC 31.7 L, RDW Std Deviation 53.1 H, RDW Coeff of Marcial 16.5 H, Plt Count 272, MPV 10.1, Immature Gran % (Auto) 0.800, Neut % (Auto) 81.7 H, Lymph % (Auto) 8.3 L, Simpson % (Auto) 6.2, Eos % (Auto) 2.4, Baso % (Auto) 0.6, Absolute Neuts (auto) 10.8 H, Absolute Lymphs (auto) 1.10, Nucleated RBC % 0.2, Sodium 141, Potassium 4.0, Chloride 106, Carbon Dioxide 24.4, Anion Gap 10, BUN 30 H, Creatinine 1.13, Estim Creat Clear Calc 38.07 L, Est GFR (MDRD) Non-Af 48 L, BUN/Creatinine Ratio 26.9 H, Glucose 104 H, Calcium 8.5 04/29/25 09:22: POC Glucose 92 04/29/25 11:18: POC Glucose 89 Micro: Microbiology 04/27/25 06:38 Wound - Leg, Right Skin and Soft Tissue MRSA/MSSA (PCR - Final 04/26/25 21:08 Stool Stool Occult Blood (ANDREA) - Final Occult Blood Positive Radiography Diagnostic Testing: Radiology Impression Chest X-Ray 04/29/25 05:55 IMPRESSION: Increased right pleural effusion. Unchanged minimal left pleural effusion. Increased passive atelectatic airspace disease of the lower lobes. Increased pulmonary venous congestion. Enlarged cardiac silhouette. Reading Location: [place] [address] Physical Exam Const alert and no apparent distress HEENT head/scalp atraumatic and moist oral mucous membranes Resp normal respiratory effort, no retractions, no use of accessory muscles and clear to auscultation bilaterally Cardio regular rate, regular rhythm, S1 normal heart sound and S2 normal heart sound GI normal to inspection, nondistended, normoactive bowel sounds, soft to palpation, non-tender and non-distended Extremity normal to inspection and full ROM Assessment & Plan Assessment/Plan (1) Transient hypotension: PLAN: BP transiently down to 58/41, but has recovered. 2/2 ABLA + antihypertensives. Monitor. improved. Monitor (2) ABLA (acute blood loss anemia): PLAN: 2/2 GIB complicated by apixaban transfused 2 units PRBCs. Hemoglobin has remained stable since then (3) GI (gastrointestinal bleed): PLAN: on PPI gtt GI consult. Completed prep on 04/27. Down for endoscopy today. (4) Atrial fibrillation with RVR: PLAN: pAfib w RVR already on PO amio. Started on Amiodaron gtt. apixaban held given the GIB. Timing of resumption TBD. Resume PO diltiazem and metoprolol with hold parameters. PLAN: Plan chronic conditions: DM2: metformin held. SSI. HFpEF: monitor for volume overload. EF 55-60%. hypothyroidism: levothyroxine VTE prophylaxis: SCDs. Charges/Coding Visit Charges Inpatient E&M: 77581 Subs Hosp L2
--- NOTE | 2025-04-29 14:31 | PCM.POST.ANE ---
Anesthesia: Postop Eval I Current Vital Signs Temperature: 98.8 F Pulse Rate: 99 Blood Pressure: 120/77 Respiratory Rate: 16 Pulse Ox: 95 Oxygen Delivery Method: Room Air Assessment Airway patent: Yes Spontaneous unlabored respirations: Yes Mental status: Awake and Calm nausea: No Vomiting: No Anesthesia Complication: No Fluid Hydration Crystalloid volume administer (ml): 600 Total IV fluid infused: 600 Progress Note Anesthesia document: Postop Eval 1 completed: Yes
--- NOTE | 2025-04-29 14:58 | PCM.POSTANE2 ---
Anesthesia Postop Eval I Sum Postop Eval Completion status Anesthesia document: Postop Eval 1 completed: Yes Anesthesia Postop Eval I Summary Anesthesia Postop Eval I Summary: Anesthesia Postop Eval I: Assessment Summary Airway patent Yes 04/29/25 14:32 [email or web address] Spontaneous unlabored Yes 04/29/25 14:32 [email or web address] respirations Mental status Awake,Calm 04/29/25 14:32 [email or web address] nausea No 04/29/25 14:32 [email or web address] Vomiting No 04/29/25 14:32 [email or web address] Anesthesia Postop Eval I: Fluid Summary Crystalloid volume administer 600 04/29/25 14:32 [email or web address] (ml) Colloids volume administered ( ml) Blood Product volume administered (ml) Total IV fluid infused 600 04/29/25 14:32 [email or web address] Anesthesia Postop Eval I: Summary Notes Anesthesia Complication No 04/29/25 14:32 [email or web address] Anesthesia Complication Comment: Post-operative progress note Anesthesia: Postop Eval II Evaluation Mental status: Awake Pain Level: 0 nausea: No Vomiting: No
[2025-04-29 16:09] LABS: Bedside Glucose 110 mg/dL (74-106)
--- NOTE | 2025-04-29 17:30 | OP.EGD_ITS ---
Patient Name: Blessing Smart Procedure Date: 04/29/2025 1:34 PM Date of : 1940 Age: 84 Procedure: Upper GI endoscopy Indications: Acute post hemorrhagic anemia, Iron deficiency anemia, Functional Dyspepsia, Melena, Active gastrointestinal bleeding Providers: Jayden Still DO Medicines: Monitored Anesthesia Care Patient Profile: This is an 84 year old female. Refer to note in patient chart for documentation of history and physical. Patient has symptoms. Complications: No immediate complications. Procedure: Pre-Anesthesia Assessment: - Prior to the procedure, a History and Physical was performed, and patient medications and allergies were reviewed. The patient is competent. The risks and benefits of the procedure and the sedation options and risks were discussed with the patient. All questions were answered and informed consent was obtained. Patient identification and proposed procedure were verified by the physician in the pre-procedure area. Mental Status Examination: alert and oriented. Airway Examination: normal oropharyngeal airway and neck mobility. Respiratory Examination: clear to auscultation. CV Examination: normal. Prophylactic Antibiotics: The patient does not require prophylactic antibiotics. Prior Anticoagulants: The patient has taken no anticoagulant or antiplatelet agents except for NSAID medication. ASA Grade Assessment: II - A patient with mild systemic disease. After reviewing the risks and benefits, the patient was deemed in satisfactory condition to undergo the procedure. The anesthesia plan was to use monitored anesthesia care (MAC). Immediately prior to administration of medications, the patient was re-assessed for adequacy to receive sedatives. The heart rate, respiratory rate, oxygen saturations, blood pressure, adequacy of pulmonary ventilation, and response to care were monitored throughout the procedure. The physical status of the patient was re-assessed after the procedure. After obtaining informed consent, the endoscope was passed under direct vision. Throughout the procedure, the patient's blood pressure, pulse, and oxygen saturations were monitored continuously. The colonoscope was introduced through the mouth, and advanced to the fourth part of the duodenum. Small bowel enteroscopy was deemed necessary. The upper GI endoscopy was accomplished without difficulty. The patient tolerated the procedure well. Scope In: 1:50:06 PM Scope Out: 1:55:33 PM Total Procedure Duration Time 0 hours 5 minutes 27 seconds Findings: The examined esophagus was normal. No gross lesions were noted in the stomach. Many partially obstructing (about 30% obstructed) oozing linear duodenal ulcers with a visible vessel were found in the duodenal bulb, in the first portion of the duodenum, in the second portion of the duodenum and in the third portion of the duodenum. The largest lesion was twenty mm by twenty-five mm in largest dimension. There is no evidence of perforation. Coagulation for hemostasis using heater probe was successful. Estimated blood loss was minimal. Impression: - Normal esophagus. - No gross lesions in the stomach. - Oozing duodenal ulcers with a visible vessel. NSAID induced etiology. There is no evidence of perforation. Treated with a heater probe. - No specimens collected. Recommendation: - Return patient to [facility] for [facility] care. - Full liquid diet today. - The patient is not currently taking anticoagulant or antiplatelet agents. - Carafate 1 g 3 times a day x 2 months - Protonix 40 mg p.o. twice daily - Repeat upper endoscopy in approximately 3 months to monitor healing Procedure Code(s): --- Professional --- 01811, Small intestinal endoscopy, enteroscopy beyond second portion of duodenum, not including ileum; with control of bleeding (eg, injection, bipolar cautery, unipolar cautery, laser, heater probe, stapler, plasma shoeblack) CPT copyright 2021 [employer]. All rights reserved. The codes documented in this report are preliminary and upon potato chip processing supervisor review may be revised to meet current compliance requirements. Jayden Still DO 04/29/2025 5:29:46 PM This report has been signed electronically. Number of Addenda: 0 Note Initiated On: 04/29/2025 1:34 PM
--- NOTE | 2025-04-29 17:30 | OP.CCLET_ITS ---
04/29/2025 Ras Childress Re : Upper GI endoscopy procedure for Blessing Smart Dear Fior This procedure was performed on Tuesday, April 29, 2025. My impressions and recommendations are as follows: Impressions : - Normal esophagus. - No gross lesions in the stomach. - Oozing duodenal ulcers with a visible vessel. NSAID induced etiology. There is no evidence of perforation. Treated with a heater probe. - No specimens collected. Recommendations : - Return patient to [facility] for ongoing care. - Full liquid diet today. - The patient is not currently taking anticoagulant or antiplatelet agents. - Carafate 1 g 3 times a day x 2 months - Protonix 40 mg p.o. twice daily - Repeat upper endoscopy in approximately 3 months to monitor healing My findings are described in the full procedure note, which is enclosed. If I can be of further assistance, please feel free to contact me at . Sincerely, Jayden Still, 04/29/2025 5:29:46 PM This report has been signed electronically.
--- NOTE | 2025-04-29 17:33 | OP.CCLET_ITS ---
04/29/2025 Ras Childress Re : Colonoscopy procedure for Blessing Smart Dear Fior This procedure was performed on Tuesday, April 29, 2025. My impressions and recommendations are as follows: Impressions : - Preparation of the colon was inadequate. - Diverticulosis in the recto-sigmoid colon, in the sigmoid colon and in the descending colon. - Stool in the entire examined colon. - Blood in the entire examined colon. - No specimens collected. Recommendations : - Return patient to [facility] for ongoing care. - Full liquid diet. - Continue present medications. - Repeat colonoscopy in 3 months for surveillance. My findings are described in the full procedure note, which is enclosed. If I can be of further assistance, please feel free to contact me at . Sincerely, Jayden Still, 04/29/2025 5:33:06 PM This report has been signed electronically.
--- NOTE | 2025-04-29 17:33 | OP.COLON_ITS ---
Patient Name: Blessing Smart Procedure Date: 04/29/2025 1:55 PM Date of : 1940 Age: 84 Procedure: Colonoscopy Indications: Melena Providers: Jayden Still DO Medicines: Monitored Anesthesia Care Patient Profile: This is an 84 year old female. Refer to note in patient chart for documentation of history and physical. Patient has symptoms. Last Colonoscopy: more than 3 years ago. Complications: No immediate complications. Procedure: Pre-Anesthesia Assessment: - Prior to the procedure, a History and Physical was performed, and patient medications and allergies were reviewed. The patient is competent. The risks and benefits of the procedure and the sedation options and risks were discussed with the patient. All questions were answered and informed consent was obtained. Patient identification and proposed procedure were verified by the physician in the pre-procedure area. Mental Status Examination: alert and oriented. Airway Examination: normal oropharyngeal airway and neck mobility. Respiratory Examination: clear to auscultation. CV Examination: normal. Prophylactic Antibiotics: The patient does not require prophylactic antibiotics. Prior Anticoagulants: The patient has taken no anticoagulant or antiplatelet agents except for NSAID medication. ASA Grade Assessment: II - A patient with mild systemic disease. After reviewing the risks and benefits, the patient was deemed in satisfactory condition to undergo the procedure. The anesthesia plan was to use monitored anesthesia care (MAC). Immediately prior to administration of medications, the patient was re-assessed for adequacy to receive sedatives. The heart rate, respiratory rate, oxygen saturations, blood pressure, adequacy of pulmonary ventilation, and response to care were monitored throughout the procedure. The physical status of the patient was re-assessed after the procedure. After I obtained informed consent, the scope was passed under direct vision. Throughout the procedure, the patient's blood pressure, pulse, and oxygen saturations were monitored continuously. The colonoscope was introduced through the anus and advanced to the cecum, identified by appendiceal orifice and ileocecal valve. The colonoscopy was performed without difficulty. The patient tolerated the procedure well. The quality of the bowel preparation was inadequate. The ileocecal valve was photographed. Scope In: 1:58:50 PM Scope Withdrawal Time 0 hours 9 minutes 39 seconds Scope Out: 2:12:40 PM Total Procedure Duration Time 0 hours 13 minutes 50 seconds Findings: The perianal and digital rectal examinations were normal. Multiple small-mouthed diverticula were found in the recto-sigmoid colon, sigmoid colon and descending colon. Stool was found in the entire colon. Hematin (altered blood/tmbwee-ikqtqs-xutj material) was found in the entire colon. Impression: - Preparation of the colon was inadequate. - Diverticulosis in the recto-sigmoid colon, in the sigmoid colon and in the descending colon. - Stool in the entire examined colon. - Blood in the entire examined colon. - No specimens collected. Recommendation: - Return [facility] to [facility] for [facility] care. - Full liquid diet. - Continue present medications. - Repeat colonoscopy in 3 months for surveillance. Procedure Code(s): --- Professional --- 56153, Colonoscopy, flexible; diagnostic, including collection of specimen(s) by brushing or washing, when performed (separate procedure) CPT copyright 2021 [employer]. All rights reserved. The codes documented in this report are preliminary and upon bottle washer review may be revised to meet current compliance requirements. Jayden Still DO 04/29/2025 5:33:06 PM This report has been signed electronically. Number of Addenda: 0 Note Initiated On: 04/29/2025 1:55 PM
[2025-04-29] MEDS: Atorvastatin Calcium 10 MG Tablet PO (22:18)
[2025-04-29] MEDS: Gabapentin 300 MG Capsule PO (22:21)
[2025-04-29 22:38] LABS: Bedside Glucose 109 mg/dL (74-106)
[2025-04-30] VITALS (11 sets, daily range): BP systolic 91–108; BP diastolic 52–76; PULSE 78–112; RESP 20–24; TEMP 36.4–37.1; O2SAT 97–100; BMI 38.9
[2025-04-30 05:48] LABS: Absolute Neutrophil Count 9.9 X10^3/uL (2.0-7.7); Basophil# 0.06 X10^3/uL; Basophil% 0.5 % (0-1); Eosinophil# 0.18 X10^3/uL; Eosinophils% 1.5 % (0-5); Hematocrit 20.8 % (37-47); Hemoglobin 6.6 g/dL (12.0-15.0); Lymphocyte % 9.1 % (19-41); Mean Corp Hgb Conc 31.7 g/dL (32-36); Mean Corpuscular Hgb 29.1 pg (27.0-32.0); Mean Corpuscular Volume 91.6 fL (81-99); Mean Platelet Vol. 9.9 fl (6.2-12.0); Monocyte# 0.83 X10^3/uL; Monocyte% 6.8 % (0-10); NRBC Flagged by Analyzer 0.2 % (0-5); Neutrophil # 9.87 X10^3/uL (2.7-7.7); Neutrophil % 81.2 % (47-70); Platelet Count 265 K/mm3 (150-450); RBC Distribution Width SD 51.4 fl (35.1-43.9); Red Blood Count 2.27 M/mm3 (4.2-5.4); White Blood Count 12.2 K/mm3 (4.4-11.0)
[2025-04-30 06:08] LABS: Anion Gap 9 (5-15); BUN 28 mg/dL (4-19); BUN/Creat Ratio 23.7 RATIO (10-20); Calcium,Total 8.2 mg/dL (7.6-11.0); Carbon Dioxide 25.1 mmol/L (21.0-32.0); Chloride 105 mmol/L (98-108); Creatinine, Serum 1.19 mg/dL (0.70-1.20); EST Glomerular Filtration Rate 45 (>60); Estimated Creatinine Clearance 36.05 ml/min (50-250); Glucose 102 mg/dL (70-99); Potassium 4.3 mmol/L (3.3-5.1); Sodium Level 140 mmol/L (133-145)
[2025-04-30 06:14] LABS: Bedside Glucose 87 mg/dL (74-106)
[2025-04-30] MEDS: Levothyroxine 100 MCG Tablet PO (06:15)
--- NOTE | 2025-04-30 07:00 | PCM.PN.HOSP ---
Reason for Visit Reason for Visit: Diagnoses Acute posthemorrhagic anemia (04/27/25) Unspecified atrial fibrillation (04/27/25) Acute on chronic diastolic (congestive) heart failure (04/27/25) Hypotension, unspecified (04/27/25) Pleural effusion, not elsewhere classified (04/27/25) Gastrointestinal hemorrhage, unspecified (04/27/25) USP (current) use of anticoagulants (04/27/25) Subjective Subjective Not feeling well. Fatigued. Objective Data Objective Data Vital Signs: Vital Signs Temp Pulse Resp BP Pulse Ox O2 Del Method O2 Flow Rate 37.1 C 96 20 H 100/76 100 Nasal Cannula 2 04/30/25 06:00 04/30/25 06:00 04/30/25 06:00 04/30/25 06:00 04/30/25 06:00 04/30/25 06:00 04/30/25 06:00 FiO2 2 04/29/25 12:23 Oxygen Flow Rate (L/min) 2 Oxygen Delivery Method Nasal Cannula Weight: 93.485 kg Body Mass Index (BMI) 38.9 Intake & Output: Intake and Output for Last 24 Hours 04/28/25 04/29/25 04/30/25 23:59 23:59 23:59 Intake Total 1669.75 / 1669.75 250 / 250 Output Total 1400 / 1400 502 / 502 0 / 0 Balance 269.75 / 269.75 -252 / -252 0 / 0 Lab / Micro Data 04/30/25 05:29 04/30/25 05:29 Labs: Laboratory Results - last 24 hr 04/29/25 09:22: POC Glucose 92 04/29/25 11:18: POC Glucose 89 04/29/25 15:46: POC Glucose 110 H 04/29/25 22:16: POC Glucose 109 H 04/30/25 05:29: WBC 12.2 H, RBC 2.27 L, Hgb 6.6 L, Hct 20.8 L, MCV 91.6, MCH 29.1, MCHC 31.7 L, RDW Std Deviation 51.4 H, RDW Coeff of Marcial 16.0 H, Plt Count 265, MPV 9.9, Immature Gran % (Auto) 0.900, Neut % (Auto) 81.2 H, Lymph % (Auto) 9.1 L, [place] % (Auto) 6.8, Eos % (Auto) 1.5, Baso % (Auto) 0.5, Absolute Neuts (auto) 9.9 H, Absolute Lymphs (auto) 1.10, Nucleated RBC % 0.2, Sodium 140, Potassium 4.3, Chloride 105, Carbon Dioxide 25.1, Anion Gap 9, BUN 28 H, Creatinine 1.19, Estim Creat Clear Calc 36.05 L, Est GFR (MDRD) Non-Af 45 L, BUN/Creatinine Ratio 23.7 H, Glucose 102 H, Calcium 8.2 04/30/25 05:49: POC Glucose 87 Micro: Microbiology 04/27/25 06:38 Wound - Leg, Right Skin and Soft Tissue MRSA/MSSA (PCR - Final 04/26/25 21:08 Stool Stool Occult Blood (ANDREA) - Final Occult Blood Positive Physical Exam Const alert and no apparent distress HEENT head/scalp atraumatic and moist oral mucous membranes Resp normal respiratory effort and no retractions Resp Narrative: bibasilar crackles. Cardio regular rate, regular rhythm, S1 normal heart sound and S2 normal heart sound GI normal to inspection, nondistended, normoactive bowel sounds, soft to palpation, non-tender and non-distended Neuro Sensorium / Orientation: awake and alert Assessment & Plan Assessment/Plan (1) ABLA (acute blood loss anemia): PLAN: 2/2 GIB complicated by apixaban transfused 2 units PRBCs. Hg was stable but down to 6.6 today. Will transfuse another unit. (2) GI (gastrointestinal bleed): PLAN: on PPI gtt GI consult. Completed prep on 04/27. EGD with oozing duodenal ulcers with a visible vessel. Treated w a heater probe. Colonoscopy with inadequate prep. Diverticulosis in the recto-sigmoid colon. (3) Atrial fibrillation with RVR: PLAN: pAfib w RVR already on PO amio. Started on Amiodaron gtt, since discontinued. apixaban held given the GIB. Timing of resumption TBD. Continue PO diltiazem and metoprolol with hold parameters. (4) Transient hypotension: PLAN: BP transiently down to 58/41 on admission, but has recovered. 2/2 ABLA + antihypertensives. Monitor. improved. Monitor PLAN: Plan chronic conditions: DM2: metformin held. SSI. HFpEF:EF 55-60%. edematous. will give a 1x dose of IV furosemide. hypothyroidism: levothyroxine VTE prophylaxis: SCDs. Pt had a text with numerous questions from her family. With her permission, I created a note with those questions and my answers. I showed pt how to text it to her family members.. Charges/Coding Visit Charges Inpatient E&M: 04981 Subs Hosp L2
[2025-04-30] MEDS: dilTIAZem CD 240 MG Capsule PO (08:24)
[2025-04-30] MEDS: Amiodarone 200 MG Tablet PO ×2 (08:24→17:54)
[2025-04-30] MEDS: Menthol/Lanolin/Calamine/Znox 113 GM Tube 1 APPLIC TOPICAL ×4 (08:25→21:19)
[2025-04-30] MEDS: Sucralfate 1 GM Tablet PO ×3 (08:29→16:38)
[2025-04-30] MEDS: Glucerna Shake 120 ML LIQUID PO ×2 (08:29→17:53)
[2025-04-30] MEDS: Pantoprazole Sodium 40 MG in 0.9% Normal Saline (100mL MB+) 100 ML 330 MG IV ×2 (11:20→21:19)
[2025-04-30] MEDS: Metoprolol Tartrate 50 MG Tablet PO ×2 (11:23→21:20)
[2025-04-30 11:33] LABS: Bedside Glucose 147 mg/dL (74-106)
[2025-04-30 17:04] LABS: Bedside Glucose 130 mg/dL (74-106)
--- NOTE | 2025-04-30 19:30 | PCM.PN.BLA ---
Progress Note Patient's hemoglobin is back down to 6.6. She is getting transfused 1 unit packed red blood cells. Physical Exam Const alert, oriented x3, no apparent distress and healthy appearing General Appearance: cooperative GI normal to inspection, nondistended, normoactive bowel sounds, soft to palpation, non-tender and non-distended Percussion: normal to percussion Rectal Exam: deferred Assessment & Plan Assessment/Plan (1) GI (gastrointestinal bleed): (2) Atrial fibrillation with RVR: PLAN: Plan 84 y/o F with acute GI bleed. She re-presents to the [facility] ED on 04/26/2025 with increasing weakness, malaise in addition to concern for bloody diarrhea with intermittent abdominal discomfort with no nausea or emesis and upon arrival patient noted to be significantly tachycardic in A-fib. She is status post reversal of anticoagulation. She will need to undergo an upper or lower endoscopy to evaluate her upper and lower GI tract. She was explained alternatives, risk, benefits including and not withstanding bleeding, infection, perforation, need for emergent urgent . She will have an ASA of 3. 04/30/2025-states her hemoglobin is back down to 6.6 we will need to perform an repeat EGD tomorrow with control of bleed and possible stent placement to allow better healing for the ulcers in her duodenum. Visit Charges Inpatient E&M: 76217 [facility] Hosp L3
[2025-04-30] MEDS: Atorvastatin Calcium 10 MG Tablet PO (21:20)
[2025-04-30] MEDS: Gabapentin 300 MG Capsule PO (21:24)
[2025-04-30] MEDS: Insulin Lispro 100 UNIT/ML INSULN.PEN SC (21:27)
[2025-04-30 21:40] LABS: Bedside Glucose 165 mg/dL (74-106)
[2025-04-30 22:22] LABS: Hematocrit 24.2 % (37-47); Hemoglobin 7.7 g/dL (12.0-15.0)
[2025-05-01] VITALS (16 sets, daily range): BP systolic 74–112; BP diastolic 42–72; PULSE 85–124; RESP 15–20; TEMP 36.1–36.8; O2SAT 95–100; BMI 39.0
[2025-05-01 03:56] LABS: Absolute Lymphocyte Count 1.18 X10^3/uL (0.83-4.51); Absolute Neutrophil Count 9.9 X10^3/uL (2.0-7.7); Basophil# 0.08 X10^3/uL; Basophil% 0.6 % (0-1); Eosinophil# 0.27 X10^3/uL; Eosinophils% 2.2 % (0-5); Hematocrit 24.5 % (37-47); Hemoglobin 7.7 g/dL (12.0-15.0); Lymphocyte # 1.18 X10^3/ul (0.83-4.51); Lymphocyte % 9.4 % (19-41); Mean Corp Hgb Conc 31.4 g/dL (32-36); Mean Corpuscular Hgb 29.2 pg (27.0-32.0); Mean Corpuscular Volume 92.8 fL (81-99); Mean Platelet Vol. 9.7 fl (6.2-12.0); Monocyte# 0.99 X10^3/uL; Monocyte% 7.9 % (0-10); NRBC Flagged by Analyzer 0.2 % (0-5); Neutrophil # 9.89 X10^3/uL (2.7-7.7); Neutrophil % 78.9 % (47-70); Platelet Count 262 K/mm3 (150-450); RBC Distribution Width CV 15.8 % (11.6-14.6); Red Blood Count 2.64 M/mm3 (4.2-5.4); White Blood Count 12.5 K/mm3 (4.4-11.0)
[2025-05-01 04:21] LABS: Anion Gap 8 (5-15); BUN 26 mg/dL (4-19); BUN/Creat Ratio 20.9 RATIO (10-20); Calcium,Total 8.4 mg/dL (7.6-11.0); Carbon Dioxide 26.8 mmol/L (21.0-32.0); Chloride 104 mmol/L (98-108); Creatinine, Serum 1.24 mg/dL (0.70-1.20); EST Glomerular Filtration Rate 43 (>60); Glucose 127 mg/dL (70-99); Potassium 4.3 mmol/L (3.3-5.1); Sodium Level 138 mmol/L (133-145)
[2025-05-01] MEDS: Levothyroxine 100 MCG Tablet PO (06:34)
[2025-05-01] MEDS: Sucralfate 1 GM Tablet PO (06:34)
[2025-05-01 07:01] LABS: Bedside Glucose 104 mg/dL (74-106)
--- NOTE | 2025-05-01 07:21 | PN.HOSP_ITS ---
Reason for Visit Reason for Visit: Diagnoses Acute posthemorrhagic anemia (04/27/25) Unspecified atrial fibrillation (04/27/25) Acute on chronic diastolic (congestive) heart failure (04/27/25) Hypotension, unspecified (04/27/25) Pleural effusion, not elsewhere classified (04/27/25) Gastrointestinal hemorrhage, unspecified (04/27/25) senior care (current) use of anticoagulants (04/27/25) Subjective Subjective No new issues. No shortness of breath. Objective Data Objective Data Vital Signs: Vital Signs Temp Pulse Resp BP Pulse Ox O2 Del Method O2 Flow Rate 36.7 C 85 19 H 100/65 100 Nasal Cannula 2 05/01/25 06:00 05/01/25 06:00 05/01/25 06:00 05/01/25 06:00 05/01/25 06:00 05/01/25 06:00 05/01/25 06:00 FiO2 2 04/29/25 12:23 Oxygen Flow Rate (L/min) 2 Oxygen Delivery Method Nasal Cannula Weight: 93.712 kg Body Mass Index (BMI) 39.0 Intake & Output: Intake and Output for Last 24 Hours 04/29/25 04/30/25 05/01/25 23:59 23:59 23:59 Intake Total 250 / 250 1687.5 / 2047.5 360 / 360 Output Total 502 / 502 0 / 0 Balance -252 / -252 1687.5 / 2047.5 360 / 360 Lab / Micro Data 05/01/25 03:45 05/01/25 03:45 Labs: Laboratory Results - last 24 hr 04/26/25 21:11: Crossmatch See Detail 04/30/25 07:02: Blood Type O POSITIVE, Antibody Screen NEGATIVE, Crossmatch See Detail 04/30/25 11:15: POC Glucose 147 H 04/30/25 16:38: POC Glucose 130 H 04/30/25 21:14: POC Glucose 165 H 04/30/25 22:00: Hgb 7.7 L, Hct 24.2 L 05/01/25 03:45: WBC 12.5 H, RBC 2.64 L, Hgb 7.7 L, Hct 24.5 L, MCV 92.8, MCH 29.2, MCHC 31.4 L, RDW Std Deviation 51.0 H, RDW Coeff of Marcial 15.8 H, Plt Count 262, MPV 9.7, Immature Gran % (Auto) 1.000 H, Neut % (Auto) 78.9 H, Lymph % (Auto) 9.4 L, [place] % (Auto) 7.9, Eos % (Auto) 2.2, Baso % (Auto) 0.6, Absolute Neuts (auto) 9.9 H, Absolute Lymphs (auto) 1.18, Nucleated RBC % 0.2, Sodium 138, Potassium 4.3, Chloride 104, Carbon Dioxide 26.8, Anion Gap 8, BUN 26 H, C reatinine 1.24 H, Estim Creat Clear Calc 34.60 L, Est GFR (MDRD) Non-Af 43 L, B UN/Creatinine Ratio 20.9 H, Glucose 127 H, Calcium 8.4 05/01/25 06:32: POC Glucose 104 Micro: Microbiology 04/27/25 06:38 Wound - Leg, Right Skin and Soft Tissue MRSA/MSSA (PCR - Final 04/26/25 21:08 Stool Stool Occult Blood (ANDREA) - Final Occult Blood Positive Physical Exam Narrative POCUS: indication for CHF. Suxiphoid showed IVC wasn not collapsable with respiration. B-line lungs anteriorly. LV grossly normal. Const alert and no apparent distress Resp normal respiratory effort, no retractions, no use of accessory muscles and clear to auscultation bilaterally Cardio regular rate, regular rhythm, S1 normal heart sound and S2 normal heart sound GI normal to inspection, nondistended, normoactive bowel sounds, soft to palpation, non-tender and non-distended Neuro Sensorium / Orientation: awake and alert Assessment & Plan Assessment/Plan (1) ABLA (acute blood loss anemia): PLAN: 2/2 GIB complicated by apixaban transfused 3 units PRBCs. Monitor (2) GI (gastrointestinal bleed): PLAN: on PPI BID GI consult. Completed prep on 04/27. EGD with oozing duodenal ulcers with a visible vessel. Treated w a heater probe. Colonoscopy with inadequate prep. Diverticulosis in the recto-sigmoid colon. (3) Atrial fibrillation with RVR: PLAN: pAfib w RVR, now improved already on PO amio. Started on Amiodaron gtt, since discontinued. apixaban held given the GIB. Timing of resumption TBD. Continue PO diltiazem and metoprolol with hold parameters. (4) Transient hypotension: PLAN: BP transiently down to 58/41 on admission, but has recovered. 2/2 ABLA + antihypertensives. Monitor. improved. Monitor (5) (HFpEF) heart failure with preserved ejection fraction: QUALIFIERS: Heart failure chronicity: acute on chronic Qualified Code(s): I50.33 - Acute on chronic diastolic (congestive) heart failure PLAN: Increase pulmonary vascular congestion on CXR Resume IV furosmide. PLAN: Plan chronic conditions: * DM2: metformin held. SSI. * hypothyroidism: levothyroxine VTE prophylaxis: SCDs. Charges/Coding Visit Charges Inpatient E&M: 38818 Subs Hosp L2
[2025-05-01] MEDS: Amiodarone 200 MG Tablet PO ×2 (08:20→18:58)
[2025-05-01] MEDS: Metoprolol Tartrate 50 MG Tablet PO ×2 (11:25→22:27)
[2025-05-01] MEDS: dilTIAZem CD 240 MG Capsule PO (11:28)
[2025-05-01] MEDS: Pantoprazole Sodium 40 MG in 0.9% Normal Saline (100mL MB+) 100 ML 330 MG IV ×2 (11:29→22:28)
--- NOTE | 2025-05-01 15:48 | PRE.ANES_ITS ---
ASA Classification* ASA Classification ASA Classification: 3 Assessment & Plan Anesthesia* Anesthesia Assessment Anesthesia Assessment: Discussed sedation and/or anesthesia options, risks, benefits, and alternatives with patient/parents/legal guardian/POA. Questions invited. The patient/parents/legal guardian/POA seems to understand and agrees to proceed with anesthesia plan. Reviewed the physical assessment, medical history, allergy history and patient home medications list prior to surgery/procedure/anesthetic and documented any changes. Performed airway and anesthesia risk assessments. Anesthesia Type Anesthesia Type: MAC Anesthesia Focused Assessment* Temperature: 97.4 F Pulse Rate: 96 Blood Pressure: 108/63 Respiratory Rate: 18 Pulse Ox: 98 Oxygen Flow Rate (L/min): 2 Fraction of Inspired Oxygen (FIO2): 97 Airway Assessment Mouth opens: >3 cm Mallampati Score: II Labs Anesthesia Preop lab: CBC WBC 12.5 K/mm3 (4.4-11.0) H 05/01/25 03:45 5 RBC 2.64 M/mm3 (4.2-5.4) L 05/01/25 03:45 05/01/25 Hgb 7.7 g/dL (12.0-15.0) L 05/01/25 03:45 05/01/25 Hct 24.5 % (37-47) L 05/01/25 03:45 05/01/25 Plt Count 262 K/mm3 (150-450) 05/01/25 03:45 05/01/25 CHEMISTRY Potassium 4.3 mmol/L (3.3-5.1) 05/01/25 03:45 05/01/25 Sodium 138 mmol/L (133-145) 05/01/25 03:45 05/01/25 Magnesium 1.7 mg/dL (1.5-2.2) 04/28/25 05:40 04/28/25 Phosphorus 2.2 mg/dL (2.7-4.5) L 04/24/25 14:50 04/24/25 BUN 26 mg/dL (4-19) H 05/01/25 03:45 05/01/25 Creatinine 1.24 mg/dL (0.70-1.20) H 05/01/25 03:45 Glucose 127 mg/dL (70-99) H 05/01/25 03:45 05/01/25 POC Glucose 104 mg/dL (74-106) 05/01/25 06:32 05/01/25 TSH 4.920 uIU/mL (0.358-3.740) H 01/08/25 10:40 COAG PT 20.4 SECONDS (11.7-14.9) H 04/26/25 20:45 06/05/15 Pre-Assessment Diagnosis/Proposed Procedure Planned Operative Procedure(s): EGD Anesthesia History Anesthesia History - contracting officer: Anesthesia History - contracting officer Hx Hospitalization Any Problems With Anesthesia Cholinesterase deficiency You/Your Family Experience fever (hyperthermia) with Relationship Recent Exposure to Contagious Disease Does patient have nerve stimulator Patient instructed to have device shut off --Does patient have Pacemaker or ICD? When Was Last Pacemaker Check QUESTION #4 FULL TEXT: You/Your Family Experience fever (hyperthermia) with Anesthesia Last Oral Intake Last Oral intake: Last Oral Intake NPO since Meds taken in AM with sips of water? Meds patient instructed to take am of surgery PONV PONV - contracting officer: PONV - contracting officer Female HX of Motion Sickness HX of N/V After Surgery Non-Smoker Duration of Surgery greater than 60 minutes Number of Risk Factors PONV Score Height & Weight Height & Weight: Anesthesia: Height & Weight Height 5 ft 1 in 04/29/25 09:43 Weight: 93.712 kg 05/01/25 04:38 Body Mass Index (BMI) 39.0 05/01/25 04:38 Respiratory Assessment Respiratory Assessment - contracting officer: Respiratory Tract Infection Hx - contracting officer Hx Respiratory Tract Infection STOP Sleep Apnea STOP Sleep Apnea - contracting officer: STOP Sleep Apnea - contracting officer Hx Hypertension No 04/28/25 09:21 Hx Sleep Apnea No 04/29/25 14:35 CPAP BIPAP Do you snore loudly (louder No 04/27/25 06:12 than talking or can be heard Do you often feel tired/ No 04/27/25 06:12 fatigued/ sleepy during daytime? Has anyone observed you stop No 04/27/25 06:12 breathing during sleep? STOP Results Negative 04/29/25 14:22 QUESTION #5 FULL TEXT : Do you snore loudly (louder than talking or can be heard through closed doors)? 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 Specify any problems Hx of Preganancy in last 3 N/A 04/27/25 06:12 Months Nurse Filling Out Transfusion JGALLOWAY 04/27/25 06:12 & Questions: Date: 04/27/25 04/27/25 06:12 Time: 04/27/25 06:12 Patient unable to answer at this time (ie. confused, unrespo /Reproduction History /Reproductive History - contracting officer: /Reproductive Hx- contracting officer Hx Now Gestational Age (in weeks): EDC: Hx Hx Para Hx Section SAB Active Medications Active Medications: Current Medications Generic Name Dose Route Start Last Admin Trade Name Freq PRN Reason Stop Dose Admin Acetaminophen 650 mg 04/27/25 06:12 Acetaminophen 325 Mg Tablet PO Q4H PRN PRN Fever, pain 1-08/30 Al Hydroxide/Mg Hydroxide 30 ml 04/27/25 06:12 Mag Hydrox/Al Hydrox/Simeth 30 Ml Udc PO Q6H PRN PRN Gastric Burning Amiodarone HCl 200 mg 04/27/25 08:00 05/01/25 08:20 Amiodarone 200 Mg Tablet PO 200 mg BIDCM SERG Administration Atorvastatin Calcium 10 mg 04/27/25 22:00 04/30/25 21:20 Atorvastatin Calcium 10 Mg Tablet PO 10 mg QHS SERG Administration Calamine/Phenol 1 applic 04/27/25 10:00 05/01/25 11:29 Menthol/Lanolin/Calamine/Znox 113 Gm Tube TOPICAL Not Given 4X/DAY SERG Protocol Diltiazem HCl 240 mg 04/28/25 12:20 05/01/25 11:28 Diltiazem Cd 240 Mg Capsule PO 240 mg DAILY SERG Administration Protocol Furosemide 40 mg 05/01/25 18:00 Furosemide 40 Mg/4 Ml Vial IV BIDLX [facility] Protocol Gabapentin 300 mg 04/27/25 22:00 04/30/25 21:24 Gabapentin 300 Mg Capsule PO 300 mg QHS SERG Administration Glucagon 1 mg 04/27/25 06:12 Glucagon 1 Mg/Ml Syringe IM X1 PRN HYPOGLYCEMIA Protocol Guaifenesin 10 ml 04/27/25 06:12 Guaifenesin 10 Ml Udc (200mg/10ml) PO Q4H PRN PRN COUGH Dextrose 250 mls @ 0 mls/hr 04/27/25 06:12 Dextrose 10%-Water IV .Q0M PRN HYPOGLYCEMIA Protocol As Directed Sodium Chloride 250 mls @ 15 mls/hr 04/27/25 06:13 04/28/25 19:10 IV 0 mls/hr .[id number] PRN Infusion Saline Flush Sodium Chloride 250 mls @ 15 mls/hr 04/27/25 06:13 IV .[id number] PRN Additional IVPB Infusion Pantoprazole Sodium 40 mg/ 100 mls @ 330 mls/hr 04/28/25 22:00 05/01/25 12:03 Sodium Chloride IV Infused Q12 SERG Infusion Insulin Human Lispro 0 unit 04/28/25 07:00 05/01/25 12:01 Insulin Lispro 100 Unit/Ml Insuln.Pen SC Not Given ACHS [facility] Protocol Levothyroxine Sodium 100 mcg 04/27/25 06:12 05/01/25 06:34 Levothyroxine 100 Mcg Tablet PO 100 mcg DAILY@0600 SERG Administration Metolazone 5 mg 05/01/25 15:00 Metolazone 5 Mg Tablet PO DAILY [facility] Protocol Metoprolol Tartrate 50 mg 04/28/25 22:00 05/01/25 11:25 Metoprolol Tartrate 50 Mg Tablet PO 50 mg BID SERG Administration Protocol Nutritional Formula (Lactose Free) 120 ml 04/29/25 12:00 05/01/25 12:01 Glucerna Shake 120 Ml Liquid PO Not Given TIDCM [facility] Ondansetron HCl 4 mg 04/27/25 06:12 Ondansetron 4 Mg/2 Ml Vial IV Q8H PRN PRN NAUSEA/VOMITING Prochlorperazine Edisylate 5 mg 04/27/25 06:12 Prochlorperazine 10 Mg/2 Ml Vial IV Q4H PRN PRN Breakthrough Nausea/Vomiting Sodium Chloride 10 - 40 ml 04/27/25 06:13 04/28/25 21:01 0.9% Saline Lock 10 Ml Syringe IV 10 ml UD PRN Administration SALINE FLUSH Sucralfate 1 gm 04/30/25 07:00 05/01/25 11:29 Sucralfate 1 Gm Tablet PO Not Given [facility] Medical History Diabetes Kidney disease Non-smoker Venous (peripheral) insufficiency Atrial fibrillation CHF (congestive heart failure) Venous stasis ulcer Hyperpigmentation of skin Lipodermatosclerosis of both lower extremities Right leg swelling Left leg swelling Varicose veins of lower extremity with inflammation, 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 Chronic venous insufficiency Generalized osteoarthrosis History of right breast cancer Cardiomegaly Home Medications ?Medication ?Instructions ?Recorded ?Last Taken ?Type gabapentin 300 mg capsule 300 mg PO QHS Neuropathy 09/0604/15/25 History (Neurontin) levothyroxine 100 mcg tablet 100 mcg PO DAILY thyroid 09/30/17 04/16/25 History lisinopril 40 mg tablet 40 mg PO DAILY blood pressur e 09/30/17 04/15/25 History metformin 500 mg 24 hr 500 mg PO BID diabetes 09/3004/16/25 History tablet,extended release (gastric retention) pentoxifylline 400 mg 1 tab PO TID circulation 09/0604/16/25 History tablet,extended release acetaminophen 500 mg tablet 1,000 mg PO QHS PRN pain 0 01/08/25 Unknown History (Acetaminophen Extra Strength) cetirizine 10 mg tablet (24Hour 10 mg PO DAILY PRN all ergy symptoms 01/08/25 Unknown History Allergy) diosmin complex no.1 630 mg tablet 1 tab PO DAILY 12/2204/15/25 History (Vasculera) xjklgahfklhu-dmnwkjlv-nbwxej 1 tab PO DAILY vitamin 04/16/25 History tablet (A Thru Z High Potency tablet) simvastatin 20 mg tablet 20 mg PO QHS cholesterol 04/15/25 History apixaban 5 mg tablet (Eliquis) 5 mg PO BID blood thinn er 90 days 01/23/25 04/16/25 Rx #180 tabs diltiazem HCl 240 mg 240 mg PO DAILY heart rate 3 01/23/25 04/16/25 Rx capsule,extended release 24 hr months #90 caps (Cardizem CD) metoprolol tartrate 50 mg tablet 50 mg PO BID blood pr essure 90 01/23/25 04/16/25 Rx days #180 tabs biotin 5,000 mcg sublingual tablet 5,000 mcg sublingua l DAILY 04/16/25 04/15/25 History supplement semaglutide 0.25 mg or 0.5 mg (2 0.5 mg subcut QWEEK d iabetes 04/16/25 Unknown History mg/1.5 mL) subcutaneous pen injector (Ozempic) amiodarone 200 mg tablet 200 mg PO BID #60 tabs 04/26 Unknown Rx guaifenesin 600 mg tablet, 600 mg PO BID #20 tabs 05/15 Unknown Rx extended release 12 hr (Mucinex) metolazone 5 mg tablet 5 mg PO DAILY #30 tabs 04/26 Unknown Rx Allergy/AdvReac Type Severity Reaction Status Date / Time enoxaparin (From Lovenox) Allergy Unknown Verified 04/26/25 21:15 oxycodone Allergy Unknown Verified 04/26/25 21:15 Penicillins (PCN) Allergy Unknown Verified 04/26/25 21:15 Family History Father Heart disease Hypertension Heart failure Mother Kidney disease Heart disease Cancer Surgical History History of lumpectomy of right breast History of lumbar laminectomy History of total replacement of both hip joints History of total bilateral knee replacement (TKR) Social History household members: spouse Smoking Status: Never smoker alcohol intake: never substance use type: does not use Review of Systems (Anesthesia) ROS Narrative System reviewed and no additional complaints, except as documented.
[2025-05-01] MEDS: Lactated Ringers 1,000 ML 15 ML IV (15:58)
--- NOTE | 2025-05-01 16:39 | PN_ITS ---
Progress Note Patient has been n.p.o. for endoscopy today. She denies any abdominal pain. She did get transfused 2 units of packed red blood cells. She is for repeat endoscopy today to look at her duodenal ulcers. Physical Exam Const alert, oriented x3, no apparent distress and healthy appearing General Appearance: cooperative GI normal to inspection, nondistended, normoactive bowel sounds, soft to palpation, non-tender and non-distended Percussion: normal to percussion Rectal Exam: deferred Assessment & Plan Assessment/Plan (1) ABLA (acute blood loss anemia): PLAN: This is secondary to GI bleed from anticoagulation. Status post transfused 3 units PRBCs. (2) GI (gastrointestinal bleed): PLAN: We will relook at her upper GI tract and possibly place a stent because she was having some signs of gastric outlet obstruction along with GI bleeding in the duodenal bulb transitioning to the first portion of the duodenum. She was explained alternatives, risk and benefits include not withstanding bleeding, pressure, subs, perforation, need for surgery . She have an ASA of 3. (3) Atrial fibrillation with RVR: (4) Transient hypotension: (5) (HFpEF) heart failure with preserved ejection fraction: QUALIFIERS: Heart failure chronicity: acute on chronic Qualified Code(s): I50.33 - Acute on chronic diastolic (congestive) heart failure PLAN: Plan chronic conditions: * DM2: metformin held. SSI. * hypothyroidism: levothyroxine VTE prophylaxis: SCDs. Visit Charges Inpatient E&M: 66773 Subs Hosp L3
[2025-05-01] MEDS: Epinephrine (1 mg/ml) 1 MG/ML VIAL (17:16)
[2025-05-01] MEDS: 0.9% Normal Saline (Pres. free 10 ML Vial (17:16)
--- NOTE | 2025-05-01 17:35 | PCM.POST.ANE ---
Anesthesia: Postop Eval I Current Vital Signs Temperature: 97.6 F Pulse Rate: 102 Blood Pressure: 74/54 Respiratory Rate: 18 Pulse Ox: 99 Assessment Airway patent: Yes Spontaneous unlabored respirations: Yes Mental status: Awake nausea: No Vomiting: No Anesthesia Complication: No Fluid Hydration Crystalloid volume administer (ml): 50 Total IV fluid infused: 50 Progress Note Anesthesia document: Postop Eval 1 completed: Yes
--- NOTE | 2025-05-01 17:36 | PCM.POSTANE2 ---
Anesthesia Postop Eval I Sum Postop Eval Completion status Anesthesia document: Postop Eval 1 completed: Yes Anesthesia Postop Eval I Summary Anesthesia Postop Eval I Summary: Anesthesia Postop Eval I: Assessment Summary Airway patent Yes 05/01/25 17:36 Spontaneous unlabored Yes 05/01/25 17:36 respirations Mental status Awake 05/01/25 17:36 nausea No 05/01/25 17:36 Vomiting No 05/01/25 17:36 Anesthesia Postop Eval I: Fluid Summary Crystalloid volume administer 50 05/01/25 17:36 (ml) Colloids volume administered ( ml) Blood Product volume administered (ml) Total IV fluid infused 50 05/01/25 17:36 Anesthesia Postop Eval I: Summary Notes Anesthesia Complication No 05/01/25 17:36 Anesthesia Complication Comment: Post-operative progress note Anesthesia: Postop Eval II Evaluation Mental status: Awake Pain Level: 0 nausea: No Vomiting: No
--- NOTE | 2025-05-01 17:37 | ANES.CONFIRM ---
Anesthesia: Confirm Documents Multiple Procedures on Account (2) Confirmed Documents: Yes
--- NOTE | 2025-05-01 17:46 | OP.EGD_ITS ---
Patient Name: Blessing Smart Procedure Date: 05/01/2025 4:48 PM Date of : 1940 Age: 84 Procedure: Upper GI endoscopy Indications: Acute post hemorrhagic anemia, Iron deficiency anemia, Failure to respond to medical treatment, Melena, Active gastrointestinal bleeding Providers: Jayden Still DO Medicines: Monitored Anesthesia Care Patient Profile: This is an 84 year old female. Refer to note in patient chart for documentation of history and physical. Patient has symptoms. Complications: No immediate complications. Procedure: Pre-Anesthesia Assessment: - Prior to the procedure, a History and Physical was performed, and patient medications and allergies were reviewed. The patient is competent. The risks and benefits of the procedure and the sedation options and risks were discussed with the patient. All questions were answered and informed consent was obtained. Patient identification and proposed procedure were verified by the physician in the pre-procedure area. Mental Status Examination: alert and oriented. Airway Examination: normal oropharyngeal airway and neck mobility. Respiratory Examination: clear to auscultation. CV Examination: normal. Prophylactic Antibiotics: The patient does not require prophylactic antibiotics. Prior Anticoagulants: The patient has taken no anticoagulant or antiplatelet agents. ASA Grade Assessment: II - A patient with mild systemic disease. After reviewing the risks and benefits, the patient was deemed in satisfactory condition to undergo the procedure. The anesthesia plan was to use monitored anesthesia care (MAC). Immediately prior to administration of medications, the patient was re-assessed for adequacy to receive sedatives. The heart rate, respiratory rate, oxygen saturations, blood pressure, adequacy of pulmonary ventilation, and response to care were monitored throughout the procedure. The physical status of the patient was re-assessed after the procedure. After obtaining informed consent, the endoscope was passed under direct vision. Throughout the procedure, the patient's blood pressure, pulse, and oxygen saturations were monitored continuously. The Endoscope was introduced through the mouth, and advanced to the third part of the duodenum. Small bowel enteroscopy was deemed necessary. The upper GI endoscopy was accomplished without difficulty. The patient tolerated the procedure well. Scope In: 5:08:29 PM Scope Out: 5:24:43 PM Total Procedure Duration Time 0 hours 16 minutes 14 seconds Findings: A single area of ectopic gastric mucosa was found at the cricopharyngeus and in the upper third of the esophagus, 20 cm from the incisors. No gross lesions were noted in the entire examined stomach. Red blood was found in the ampulla, in the duodenal bulb, in the first portion of the duodenum, in the second portion of the duodenum and in the third portion of the duodenum. Many oozing cratered duodenal ulcers with a visible vessel were found in the entire duodenum. Area was successfully injected with 10 mL of a 0.1 mg/mL solution of epinephrine for drug delivery. Coagulation for hemostasis using heater probe was successful. Estimated blood loss was minimal. To stop active bleeding, hemostatic spray was deployed. Several sprays were applied. There was no bleeding at the end of the procedure. A few 5 mm angiodysplastic lesions without bleeding were found in the fourth portion of the duodenum. Coagulation for destruction of remaining portion of lesion using heater probe was successful. 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 - No gross lesions in the entire stomach. - Blood in the ampulla, in the duodenal bulb, in the second portion of the duodenum and in the third portion of the duodenum. - Oozing duodenal ulcers with a visible vessel. Injected. Treated with a heater probe. hemostatic spray applied. 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 Treated with a heater probe. - No specimens collected. Recommendation: - Discharge patient to home. - Clear liquid diet. - Continue present medications. Procedure Code(s): --- Professional --- 08179, Small intestinal endoscopy, enteroscopy beyond second portion of duodenum, not including ileum; with ablation of tumor(s), polyp(s), or other lesion(s) not amenable to removal by hot biopsy forceps, bipolar cautery or snare technique 31156, 59,51, Small intestinal endoscopy, enteroscopy beyond second portion of duodenum, not including ileum; with control of bleeding (eg, injection, bipolar cautery, unipolar cautery, laser, heater probe, stapler, plasma repairer resistance welding machines) 11354, Unlisted procedure, small intestine CPT copyright 2021 [employer]. All rights reserved. The codes documented in this report are preliminary and upon staff climate scientist review may be revised to meet current compliance requirements. Jayden Still DO 05/01/2025 5:45:54 PM This report has been signed electronically. Number of Addenda: 0 Note Initiated On: 05/01/2025 4:48 PM
--- NOTE | 2025-05-01 17:46 | OP.CCLET_ITS ---
05/01/2025 Ras Childress Re : Upper GI endoscopy procedure for Blessing Smart Dear Fior This procedure was performed on Thursday, May 01, 2025. 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 - No gross lesions in the entire stomach. - Blood in the ampulla, in the duodenal bulb, in the second portion of the duodenum and in the third portion of the duodenum. - Oozing duodenal ulcers with a visible vessel. Injected. Treated with a heater probe. hemostatic spray applied. 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 Treated with a heater probe. - No specimens collected. Recommendations : - Discharge patient to home. - Clear liquid diet. - Continue present medications. My findings are described in the full procedure note, which is enclosed. If I can be of further assistance, please feel free to contact me at . Sincerely, Jayden Still, 05/01/2025 5:45:54 PM This report has been signed electronically.
[2025-05-01] MEDS: metOLazone 5 MG Tablet PO (18:58)
[2025-05-01] MEDS: Gabapentin 300 MG Capsule PO (22:27)
[2025-05-01] MEDS: Atorvastatin Calcium 10 MG Tablet PO (22:27)
[2025-05-01] MEDS: Menthol/Lanolin/Calamine/Znox 113 GM Tube 1 APPLIC TOPICAL (22:27)
[2025-05-01] MEDS: 0.9% Saline Lock 10 ML Syringe IV (22:35)
[2025-05-01 23:00] LABS: Bedside Glucose 142 mg/dL (74-106)
[2025-05-02] VITALS (11 sets, daily range): BP systolic 83–108; BP diastolic 64–84; PULSE 80–101; RESP 16–18; TEMP 36.4–36.8; O2SAT 72–97; BMI 40.6
[2025-05-02 04:46] LABS: Absolute Lymphocyte Count 0.97 X10^3/uL (0.83-4.51); Absolute Neutrophil Count 8.9 X10^3/uL (2.0-7.7); Basophil# 0.07 X10^3/uL; Basophil% 0.7 % (0-1); Eosinophil# 0.16 X10^3/uL; Eosinophils% 1.5 % (0-5); Hematocrit 24.6 % (37-47); Hemoglobin 7.6 g/dL (12.0-15.0); Lymphocyte # 0.97 X10^3/ul (0.83-4.51); Mean Corp Hgb Conc 30.9 g/dL (32-36); Mean Corpuscular Hgb 29.3 pg (27.0-32.0); Monocyte# 0.63 X10^3/uL; Monocyte% 5.9 % (0-10); NRBC Flagged by Analyzer 0 % (0-5); Neutrophil # 8.86 X10^3/uL (2.7-7.7); Neutrophil % 82.3 % (47-70); Platelet Count 295 K/mm3 (150-450); RBC Distribution Width CV 16.2 % (11.6-14.6); RBC Distribution Width SD 53.4 fl (35.1-43.9); Red Blood Count 2.59 M/mm3 (4.2-5.4); White Blood Count 10.8 K/mm3 (4.4-11.0)
[2025-05-02 05:06] LABS: Anion Gap 8 (5-15); BUN 22 mg/dL (4-19); BUN/Creat Ratio 18.1 RATIO (10-20); Calcium,Total 8.5 mg/dL (7.6-11.0); Carbon Dioxide 26.5 mmol/L (21.0-32.0); Chloride 105 mmol/L (98-108); Creatinine, Serum 1.19 mg/dL (0.70-1.20); EST Glomerular Filtration Rate 45 (>60); Estimated Creatinine Clearance 36.91 ml/min (50-250); Glucose 106 mg/dL (70-99); Potassium 4.5 mmol/L (3.3-5.1); Sodium Level 139 mmol/L (133-145)
[2025-05-02] MEDS: Levothyroxine 100 MCG Tablet PO (05:56)
[2025-05-02] MEDS: Sucralfate 1 GM Tablet PO ×3 (06:57→16:23)
--- NOTE | 2025-05-02 07:09 | PN.HOSP_ITS ---
Reason for Visit Reason for Visit: Diagnoses Acute posthemorrhagic anemia (04/27/25) Unspecified atrial fibrillation (04/27/25) Acute on chronic diastolic (congestive) heart failure (04/27/25) Hypotension, unspecified (04/27/25) Pleural effusion, not elsewhere classified (04/27/25) Gastrointestinal hemorrhage, unspecified (04/27/25) correction (current) use of anticoagulants (04/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 Tolerating clears. Objective Data Objective Data Vital Signs: Vital Signs Temp Pulse Resp BP Pulse Ox O2 Del Method O2 Flow Rate 36.7 C 94 18 83/64 L 97 Nasal Cannula 2 05/02/25 04:00 05/02/25 04:00 05/02/25 04:00 05/02/25 04:00 05/02/25 04:00 05/02/25 04:00 05/02/25 04:00 FiO2 97 05/01/25 15:48 Oxygen Flow Rate (L/min) 2 Oxygen Delivery Method Nasal Cannula Weight: 97.4 kg Body Mass Index (BMI) 40.6 Intake & Output: Intake and Output for Last 24 Hours 04/30/25 05/01/25 05/02/25 23:59 23:59 23:59 Intake Total 1687.5 / 2047.5 560 / 560 Output Total 0 / 0 Balance 1687.5 / 2047.5 560 / 560 Lab / Micro Data 05/02/25 03:49 05/02/25 03:49 Labs: Laboratory Results - last 24 hr 05/01/25 22:17: POC Glucose 142 H 05/02/25 03:49: WBC 10.8, RBC 2.59 L, Hgb 7.6 L, Hct 24.6 L, MCV 95.0, MCH 29.3, MCHC 30.9 L, RDW Std Deviation 53.4 H, RDW Coeff of Marcial 16.2 H, Plt Count 295, MPV 10.0, Immature Gran % (Auto) 0.600, Neut % (Auto) 82.3 H, Lymph % (Auto) 9.0 L, [place] % (Auto) 5.9, Eos % (Auto) 1.5, Baso % (Auto) 0.7, Absolute Neuts (auto) 8.9 H, Absolute Lymphs (auto) 0.97, Nucleated RBC % 0, Sodium 139, Potassium 4.5, Chloride 105, Carbon Dioxide 26.5, Anion Gap 8, BUN 22 H, Creatinine 1.19, Estim Creat Clear Calc 36.91 L, Est GFR (MDRD) Non-Af 45 L, BUN/Creatinine Ratio 18.1, Glucose 106 H, Calcium 8.5 Micro: Microbiology 04/27/25 06:38 Wound - Leg, Right Skin and Soft Tissue MRSA/MSSA (PCR - Final 04/26/25 21:08 Stool Stool Occult Blood (ANDREA) - Final Occult Blood Positive Physical Exam Const alert and no apparent distress HEENT head/scalp atraumatic Resp normal respiratory effort, no retractions, no use of accessory muscles and clear to auscultation bilaterally Cardio regular rate, regular rhythm, S1 normal heart sound and S2 normal heart sound GI normal to inspection, nondistended, normoactive bowel sounds, soft to palpation, non-tender and non-distended Extremity normal to inspection and full ROM Neuro Sensorium / Orientation: awake and alert Psych affect normal Assessment & Plan Assessment/Plan (1) ABLA (acute blood loss anemia): PLAN: 2/2 GIB complicated by apixaban transfused 3 units PRBCs. Monitor (2) GI (gastrointestinal bleed): PLAN: on PPI BID GI consult. Completed prep on 04/27. EGD with oozing duodenal ulcers with a visible vessel. Treated w a heater probe. Colonoscopy with inadequate prep. Diverticulosis in the recto-sigmoid colon. Pt on liquid diet for now in case she has to go back to endoscopy. (3) Atrial fibrillation with RVR: PLAN: pAfib w RVR, now improved already on PO amio. Started on Amiodaron gtt, since discontinued. apixaban held given the GIB. Timing of resumption TBD. Continue PO diltiazem and metoprolol with hold parameters. (4) Transient hypotension: PLAN: BP transiently down to 58/41 on admission, but has recovered. 2/2 ABLA + antihypertensives. Monitor. Monitor Ongoing. Hold diuretics. (5) (HFpEF) heart failure with preserved ejection fraction: QUALIFIERS: Heart failure chronicity: acute on chronic Qualified Code(s): I50.33 - Acute on chronic diastolic (congestive) heart failure PLAN: Increase pulmonary vascular congestion on CXR Pt decline furosemide. Back on metolazone. PLAN: Plan chronic conditions: * DM2: metformin held. SSI. * hypothyroidism: levothyroxine VTE prophylaxis: SCDs. Charges/Coding Visit Charges Inpatient E&M: 55221 Subs Hosp L2
[2025-05-02 07:18] LABS: Bedside Glucose 96 mg/dL (74-106)
[2025-05-02] MEDS: Pantoprazole Sodium 40 MG in 0.9% Normal Saline (100mL MB+) 100 ML 330 MG IV ×2 (08:50→21:59)
[2025-05-02] MEDS: dilTIAZem CD 240 MG Capsule PO (08:51)
[2025-05-02] MEDS: Metoprolol Tartrate 50 MG Tablet PO ×2 (08:51→22:00)
[2025-05-02] MEDS: Menthol/Lanolin/Calamine/Znox 113 GM Tube 1 APPLIC TOPICAL ×3 (08:52→22:00)
[2025-05-02] MEDS: Amiodarone 200 MG Tablet PO ×2 (08:52→18:03)
[2025-05-02 11:22] LABS: Bedside Glucose 94 mg/dL (74-106)
--- NOTE | 2025-05-02 12:20 | CASEMGMT ---
Addendum entered by Kourtney Escobar 05/02/25 13:09: [facility] reports that they can accept for a SOC contingent on the pts DC date and oxygen requirements. CM to follow. Original Note: Dr. Blas reports that the pt will likely DC today vs tomorrow. RN CM to pt room at this time to discuss DC planning. Pt was recently set up with [facility] during the index admission. See CM notes. However, pt was only home for a few hours after DC and the [facility] never opened the pt up or started home care. Therefore, a new referral for [facility] is required. At this time, the pt states that she feels safe returning home with her once she is medically ready and wishes to have [facility] set up again. Pt denies wanting to review a list. TC to [facility] and referral made for SN, PT, and OT. Awaiting return response. Pt is also requiring additional oxygen currently and may qualify for home oxygen use. A verbal list of local in-network DME companies were provided to the pt at this time. Pt prefers [employer].?CM to follow.
[2025-05-02 16:43] LABS: Bedside Glucose 114 mg/dL (74-106)
[2025-05-02] MEDS: Glucerna Shake 120 ML LIQUID PO (18:04)
--- NOTE | 2025-05-02 19:50 | PN_ITS ---
Progress Note Patient has been tolerating a diet today without any problems. She is status post EGD x 2 with control of bleed. Physical Exam Const alert and no apparent distress HEENT head/scalp atraumatic Resp normal respiratory effort, no retractions, no use of accessory muscles and clear to auscultation bilaterally Cardio regular rate, regular rhythm, S1 normal heart sound and S2 normal heart sound GI normal to inspection, nondistended, normoactive bowel sounds, soft to palpation, non-tender and non-distended Extremity normal to inspection and full ROM Neuro Sensorium / Orientation: awake and alert Psych affect normal Assessment & Plan Assessment/Plan (1) ABLA (acute blood loss anemia): PLAN: This is secondary to GI bleed from anticoagulation. Status post transfused 3 units PRBCs. (2) GI (gastrointestinal bleed): PLAN: We took a relook at her upper GI tract and possibly place a stent because she was having some signs of gastric outlet obstruction along with GI bleeding in the duodenal bulb transitioning to the first portion of the duodenum. She was explained alternatives, risk and benefits include not withstanding bleeding, pressure, subs, perforation, need for surgery . She have an ASA of 3. 05/02/2025-she is status post repeat upper endoscopy with control of bleed. She had duodenal ulcers retreated with epinephrine, hemostasis. Cautery and Hemospray. Her hemoglobin was 7.7 yesterday. It is 7.6 today. Her BUN/creatinine ratio is improving. I do not see any signs of bleeding at this time. She is okay to advance her diet. (3) Atrial fibrillation with RVR: (4) Transient hypotension: (5) (HFpEF) heart failure with preserved ejection fraction: QUALIFIERS: Heart failure chronicity: acute on chronic Qualified Code(s): I50.33 - Acute on chronic diastolic (congestive) heart failure PLAN: Plan chronic conditions: * DM2: metformin held. SSI. * hypothyroidism: levothyroxine VTE prophylaxis: SCDs. Visit Charges Inpatient E&M: 90676 Subs Hosp L3
[2025-05-02] MEDS: 0.9% Saline Lock 10 ML Syringe IV (21:59)
[2025-05-02] MEDS: Atorvastatin Calcium 10 MG Tablet PO (22:00)
[2025-05-02] MEDS: Gabapentin 300 MG Capsule PO (22:03)
[2025-05-02 22:36] LABS: Bedside Glucose 116 mg/dL (74-106)
[2025-05-03 03:24] VITALS: BMI 40.1
[2025-05-03 03:45] VITALS: BP 102/76; PULSE 86; RESP 16; TEMP 36.3; O2SAT 97
[2025-05-03] MEDS: Levothyroxine 100 MCG Tablet PO (06:34)
[2025-05-03] MEDS: Sucralfate 1 GM Tablet PO ×3 (06:34→16:00)
[2025-05-03 06:56] LABS: Absolute Lymphocyte Count 0.96 X10^3/uL (0.83-4.51); Absolute Neutrophil Count 7.1 X10^3/uL (2.0-7.7); Basophil# 0.08 X10^3/uL; Basophil% 0.9 % (0-1); Eosinophil# 0.23 X10^3/uL; Eosinophils% 2.6 % (0-5); Hematocrit 24.3 % (37-47); Hemoglobin 7.5 g/dL (12.0-15.0); Lymphocyte # 0.96 X10^3/ul (0.83-4.51); Lymphocyte % 10.7 % (19-41); Mean Corp Hgb Conc 30.9 g/dL (32-36); Mean Corpuscular Hgb 29.4 pg (27.0-32.0); Mean Corpuscular Volume 95.3 fL (81-99); Mean Platelet Vol. 9.8 fl (6.2-12.0); Monocyte# 0.61 X10^3/uL; Monocyte% 6.8 % (0-10); NRBC Flagged by Analyzer 0 % (0-5); Neutrophil # 7.07 X10^3/uL (2.7-7.7); Neutrophil % 78.4 % (47-70); Platelet Count 287 K/mm3 (150-450); RBC Distribution Width SD 53.6 fl (35.1-43.9); Red Blood Count 2.55 M/mm3 (4.2-5.4)
--- NOTE | 2025-05-03 07:00 | PN.HOSP_ITS ---
Reason for Visit Reason for Visit: Diagnoses Acute posthemorrhagic anemia (04/27/25) Unspecified atrial fibrillation (04/27/25) Acute on chronic diastolic (congestive) heart failure (04/27/25) Hypotension, unspecified (04/27/25) Pleural effusion, not elsewhere classified (04/27/25) Gastrointestinal hemorrhage, unspecified (04/27/25) nursing home (current) use of anticoagulants (04/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 No new issues. Objective Data Objective Data Vital Signs: Vital Signs Temp Pulse Resp BP Pulse Ox O2 Del Method O2 Flow Rate 36.3 C L 86 16 102/76 97 Nasal Cannula 2 05/03/25 03:45 05/03/25 03:45 05/03/25 03:45 05/03/25 03:45 05/03/25 03:45 05/03/25 03:46 05/03/25 03:46 FiO2 97 05/01/25 15:48 Oxygen Flow Rate (L/min) 2 Oxygen Delivery Method Nasal Cannula Weight: 96.5 kg Body Mass Index (BMI) 40.1 Intake & Output: Intake and Output for Last 24 Hours 05/01/25 05/02/25 05/03/25 23:59 23:59 23:59 Intake Total 560 / 560 662.75 / 662.75 0 / 0 Output Total 0 / 0 Balance 560 / 560 662.75 / 662.75 0 / 0 Lab / Micro Data 05/03/25 06:28 05/03/25 06:28 Labs: Laboratory Results - last 24 hr 05/02/25 06:55: POC Glucose 96 05/02/25 11:02: POC Glucose 94 05/02/25 16:21: POC Glucose 114 H 05/02/25 21:52: POC Glucose 116 H 05/03/25 06:28: WBC 9.0, RBC 2.55 L, Hgb 7.5 L, Hct 24.3 L, MCV 95.3, MCH 29.4, MCHC 30.9 L, RDW Std Deviation 53.6 H, RDW Coeff of Marcial 16.0 H, Plt Count 287, MPV 9.8, Immature Gran % (Auto) 0.600, Neut % (Auto) 78.4 H, Lymph % (Auto) 10.7 L, [place] % (Auto) 6.8, Eos % (Auto) 2.6, Baso % (Auto) 0.9, Absolute Neuts (auto) 7.1, Absolute Lymphs (auto) 0.96, Nucleated RBC % 0 Micro: Microbiology 04/27/25 06:38 Wound - Leg, Right Skin and Soft Tissue MRSA/MSSA (PCR - Final 04/26/25 21:08 Stool Stool Occult Blood (ANDREA) - Final Occult Blood Positive Physical Exam Const alert and no apparent distress HEENT head/scalp atraumatic and moist oral mucous membranes Resp normal respiratory effort, no retractions, no use of accessory muscles and clear to auscultation bilaterally Cardio regular rate, regular rhythm and S1 normal heart sound GI normal to inspection, nondistended, normoactive bowel sounds, soft to palpation and non-tender Extremity normal to inspection and full ROM Assessment & Plan Assessment/Plan (1) ABLA (acute blood loss anemia): PLAN: 2/2 GIB complicated by apixaban transfused 3 units PRBCs. Monitor (2) GI (gastrointestinal bleed): PLAN: on PPI BID GI consult. Completed prep on 04/27. EGD with oozing duodenal ulcers with a visible vessel. Treated w a heater probe. Colonoscopy with inadequate prep. Diverticulosis in the recto-sigmoid colon. No further plans for repeat endoscopy at this time. Hold apixaban for 96 hours. (3) Atrial fibrillation with RVR: PLAN: pAfib w RVR, now improved already on PO amio. Started on Amiodaron gtt, since discontinued. apixaban held given the GIB. Timing of resumption TBD. Continue PO diltiazem and metoprolol with hold parameters. (4) Transient hypotension: PLAN: BP transiently down to 58/41 on admission, but has recovered. 2/2 ABLA + antihypertensives. Monitor. Monitor Ongoing. Hold diuretics. (5) (HFpEF) heart failure with preserved ejection fraction: QUALIFIERS: Heart failure chronicity: acute on chronic Qualified Code(s): I50.33 - Acute on chronic diastolic (congestive) heart failure PLAN: Increase pulmonary vascular congestion on CXR Pt declined furosemide. Back on metolazone. PLAN: Plan chronic conditions: * DM2: metformin held. SSI. * hypothyroidism: levothyroxine VTE prophylaxis: SCDs. Charges/Coding Visit Charges Inpatient E&M: 19083 Subs Hosp L2
[2025-05-03 07:22] LABS: Anion Gap 7 (5-15); BUN 20 mg/dL (4-19); BUN/Creat Ratio 16.2 RATIO (10-20); Calcium,Total 8.6 mg/dL (7.6-11.0); Carbon Dioxide 27.3 mmol/L (21.0-32.0); Chloride 104 mmol/L (98-108); Creatinine, Serum 1.22 mg/dL (0.70-1.20); EST Glomerular Filtration Rate 43 (>60); Estimated Creatinine Clearance 35.81 ml/min (50-250); Glucose 97 mg/dL (70-99); Potassium 4.4 mmol/L (3.3-5.1); Sodium Level 138 mmol/L (133-145)
[2025-05-03 07:24] LABS: Bedside Glucose 99 mg/dL (74-106)
[2025-05-03 09:25] VITALS: BP 100/59; PULSE 85; RESP 18; TEMP 36.3; O2SAT 94
[2025-05-03 09:35] VITALS: PULSE 83
[2025-05-03] MEDS: Metoprolol Tartrate 50 MG Tablet PO (09:35)
[2025-05-03] MEDS: Amiodarone 200 MG Tablet PO ×2 (09:35→17:11)
[2025-05-03] MEDS: metOLazone 5 MG Tablet PO (09:35)
[2025-05-03] MEDS: dilTIAZem CD 240 MG Capsule PO (09:35)
[2025-05-03] MEDS: Glucerna Shake 120 ML LIQUID PO (09:38)
[2025-05-03] MEDS: Pantoprazole Sodium 40 MG in 0.9% Normal Saline (100mL MB+) 100 ML 330 MG IV (09:38)
[2025-05-03] MEDS: 0.9% Saline Lock 10 ML Syringe IV (09:39)
[2025-05-03 09:46] VITALS: O2SAT 94
[2025-05-03] MEDS: Insulin Lispro 100 UNIT/ML INSULN.PEN SC (11:30)
[2025-05-03 11:50] LABS: Bedside Glucose 161 mg/dL (74-106)
[2025-05-03 12:19] VITALS: O2SAT 86; O2SAT 89; O2SAT 94; O2SAT 95
--- NOTE | 2025-05-03 13:40 | CASEMGMT ---
Per the testing tech, pt qualifies for 2L of o2 with exertion. Rx signed by Dr Blas. Rx and o2 testing sent to [facility] via [employer] at this time. Dr. Blas states that the pt will be dcing today. TC to [facility] and Louise states that they plan to start care tomorrow and have already discussed this with the pt. RN CM to the pt room at this time. Pt's at bedside. Pt states that she is agreeable to HH starting tomorrow. Pt educated to call [employer] once she gets home to have the remaining oxygen equipment delivered. Pt states understanding. Pt states that she does not have a pulse ox. Pt was educated on purchasing options and states that she can afford one. Pt states that she feels safe returning home with her today and denies further questions, concerns, or needs. PLAN: Home with [facility] and new [place] [facility] [place]
--- NOTE | 2025-05-03 14:12 | DS.PCM_ITS ---
Providers Date of Admission: 04/27/25 Primary Care Physician: Meena Vasquez MD Consultations 04/27/25 00:03 Consult: Gastroenterology Stat Consulting Provider: [facility] Reason for Consult: GIB EMERGENT Consult: Yes Notified: Yes Date Notified: 04/27/25 Time Notified: 00:04 Method of Notification: ED Physician Initiated 04/27/25 06:12 Consult: Neurosurgery Spine Physician / Pulmonary Medicine Routine Consulting Provider: Intensivists/Pulmonary Med Reason for Consult: Transient hypotention, GI bleed, ABLA EMERGENT Consult: No Notified: Yes Date Notified: 04/27/25 Time Notified: 07:50 Method of Notification: Answering Service Reason For Visit: HYPOTENSION, GI BLEED ON NOAC, PAF WITH RVR Diagnosis Discharge Diagnosis (1) ABLA (acute blood loss anemia): Status: Acute Code(s): D62 - Acute posthemorrhagic anemia Plan: 2/2 GIB complicated by apixaban transfused 3 units PRBCs. Monitor (2) GI (gastrointestinal bleed): Status: Acute Code(s): K92.2 - Gastrointestinal hemorrhage, unspecified Plan: on PPI BID GI consult. Completed prep on 04/27. EGD with oozing duodenal ulcers with a visible vessel. Treated w a heater probe. Colonoscopy with inadequate prep. Diverticulosis in the recto-sigmoid colon. No further plans for repeat endoscopy at this time. Hold apixaban for 96 hours. (3) Atrial fibrillation with RVR: Status: Acute Code(s): I48.91 - Unspecified atrial fibrillation Plan: pAfib w RVR, now improved already on PO amio. Started on Amiodaron gtt, since discontinued. apixaban held given the GIB. Timing of resumption TBD. Continue PO diltiazem and metoprolol with hold parameters. (4) Transient hypotension: Status: Acute Code(s): I95.9 - Hypotension, unspecified Plan: BP transiently down to 58/41 on admission, but has recovered. 2/2 ABLA + antihypertensives. Monitor. Monitor Ongoing. Hold diuretics. (5) (HFpEF) heart failure with preserved ejection fraction: Status: Acute Code(s): I50.30 - Unspecified diastolic (congestive) heart failure Qualifiers: Heart failure chronicity: acute on chronic Qualified Code(s): I50.33 - Acute on chronic diastolic (congestive) heart failure Plan: Increase pulmonary vascular congestion on CXR Pt declined furosemide. Back on metolazone. Plan chronic conditions: * DM2: metformin held. SSI. * hypothyroidism: levothyroxine VTE prophylaxis: SCDs. Medications at Discharge Home Medications gabapentin 300 mg capsule (Neurontin) 300 mg PO QHS Neuropathy 09/30/17 levothyroxine 100 mcg tablet 100 mcg PO DAILY thyroid 09/30/17 lisinopril 40 mg tablet 40 mg PO DAILY blood pressure 09/30/17 pentoxifylline 400 mg tablet,extended release 1 tab PO TID circulation 09/30/17 Held on 05/03/25. Instructions: Resume on 05/07/25. acetaminophen 500 mg tablet (Acetaminophen Extra Strength) 1,000 mg PO QHS PRN pain 01/08/25 cetirizine 10 mg tablet (24Hour Allergy) 10 mg PO DAILY PRN allergy symptoms 01/08/25 diosmin complex no.1 630 mg tablet (Vasculera) 1 tab PO DAILY 01/08/25 ehtssylppwno-tifhsezb-pwiypv tablet (A Thru Z High Potency tablet) 1 tab PO DAILY vitamin 01/08/25 simvastatin 20 mg tablet 20 mg PO QHS cholesterol 01/08/25 apixaban 5 mg tablet (Eliquis) 5 mg PO BID blood thinner 90 days #180 tabs 01/23/25 Held on 05/03/25. Instructions: Resume on 05/07/25. diltiazem HCl 240 mg capsule,extended release 24 hr (Cardizem CD) 240 mg PO DAILY heart rate 3 months #90 caps 01/23/25 metoprolol tartrate 50 mg tablet 50 mg PO BID blood pressure 90 days #180 tabs 01/23/25 biotin 5,000 mcg sublingual tablet 5,000 mcg sublingual DAILY supplement 04/16/25 semaglutide 0.25 mg or 0.5 mg (2 mg/1.5 mL) subcutaneous pen injector (Ozempic) 0.5 mg subcut QWEEK diabetes 04/16/25 amiodarone 200 mg tablet 200 mg PO BID #60 tabs 04/26/25 guaifenesin 600 mg tablet, extended release 12 hr (Mucinex) 600 mg PO BID #20 tabs 04/26/25 metolazone 5 mg tablet 5 mg PO DAILY #30 tabs 04/26/25 pantoprazole 40 mg tablet,delayed release (Protonix) 40 mg PO BID #60 tabs 05/03/25 sucralfate 1 gram tablet 1 g PO TIDAC #90 tabs 05/03/25 Hospital Course Operations None Procedures EGD Summary of Care Provided Minutes Spent on Discharge: 32 Hospital Course: This is an 84-year-old female presents with abdominal cramping, fatigue malaise and bloody stools. Patient was actually just discharged on the 6 when come back to the emergency room later on that day with these complaints. Was not have any bleeding while she was in the hospital. Patient did have a GI bleed and had duodenal ulcers that were cauterized by Dr. Still. This is all, also complicated by her use of apixaban for atrial fibrillation. Patient's hemoglobin did drop into though she did require total of 3 units while she was here but since has remained stable. Patient did develop some heart failure and was put back on her metolazone. Patient declined any furosemide. Overall patient is doing well and will be going home with home care. Weight / BMI Weight Weight: 96.5 kg Body Mass Index (BMI) 40.1 ABG / Lab / Microbiology Data 05/03/25 06:28 05/03/25 06:28 Laboratory: Laboratory Results - last 24 hr 05/02/25 16:21: POC Glucose 114 H 05/02/25 21:52: POC Glucose 116 H 05/03/25 06:28: WBC 9.0, RBC 2.55 L, Hgb 7.5 L, Hct 24.3 L, MCV 95.3, MCH 29.4, MCHC 30.9 L, RDW Std Deviation 53.6 H, RDW Coeff of Marcial 16.0 H, Plt Count 287, MPV 9.8, Immature Gran % (Auto) 0.600, Neut % (Auto) 78.4 H, Lymph % (Auto) 10.7 L, [place] % (Auto) 6.8, Eos % (Auto) 2.6, Baso % (Auto) 0.9, Absolute Neuts (auto) 7.1, Absolute Lymphs (auto) 0.96, Nucleated RBC % 0, Sodium 138, Potassium 4.4, Chloride 104, Carbon Dioxide 27.3, Anion Gap 7, BUN 20 H, Creatinine 1.22 H, E stim Creat Clear Calc 35.81 L, Est GFR (MDRD) Non-Af 43 L, BUN/Creatinine Ratio 16.2, Glucose 97, Calcium 8.6 05/03/25 06:35: POC Glucose 99 05/03/25 11:28: POC Glucose 161 H Microbiology: Microbiology 04/27/25 06:38 Wound - Leg, Right Skin and Soft Tissue MRSA/MSSA (PCR - Final 04/26/25 21:08 Stool Stool Occult Blood (ANDREA) - Final Occult Blood Positive D/C Instructions Discharge Diet: Low fat / Low cholesterol DC O2, CPAP, BIPAP Needs Home O2 Discharge instructions: Yes Type of respiratory needs?: Oxygen Oxygen frequency: At rest DC home with Oxygen: Yes Home O2 MD Review: I have reviewed the oxygen testing, and the patient qualifies for home oxygen equipment and portability. The patient is mobile in the home and the community. Meaningful Use Info Meaningful Use Meaningful Use Diagnoses (Choose all that apply): None applicable Ischemic Stroke Statin Dosing Therapy Reference: STATIN DOSE THERAPY REFERENCE: * Patients > 75 years receive moderate or high dose statin therapy. * Patients 75 years or YOUNGER should receive HIGH intensity statin dose unless contraindicated. You will be required to document reason for non-treatment if statin daily dose does not meet guidelines. HIGH DOSE STATIN THERAPY DAILY Atorvastatin > than or = to 40 mg Rosuvastatin > than or = to 20 mg Amlodipine + Atorvastatin > than or = to 2.5/40 mg Ezetimibe + Simvastatin 10/80 mg Simvastatin 80mg Discharge Plan Admission Admit Date/Time: 04/27/25 01:57 Primary Reason for Your Visit: Anemia Attending Provider: Ras Blas Primary Care Provider: Meena Vasquez Consulting Providers: Dayana Abel Discharge Orders/Prescriptions Prescriptions: New pantoprazole [Protonix] 40 mg tablet,delayed release (DR/EC) 40 mg PO BID Qty: 60 0RF sucralfate 1 gram Tablet 1 g PO TIDAC Qty: 90 0RF Continued diltiazem HCl [Cardizem CD] 240 mg capsule,extended release 24hr 240 mg PO DAILY 90 Days Qty: 90 3RF Rx Instructions: Hold for heart less than 50 or systolic blood pressure less than 100 mmHg. metoprolol tartrate 50 mg tablet 50 mg PO BID 90 Days Qty: 180 3RF Rx Instructions: Hold for heart less than 50 or systolic blood pressure less than 100 mmHg. levothyroxine 100 MCG tablet 100 mcg PO DAILY gabapentin [Neurontin] 300 MG capsule 300 mg PO QHS lisinopril 40 MG tablet 40 mg PO DAILY simvastatin 20 mg tablet 20 mg PO QHS Patient Comments: [NO ORIGINAL SIG] Vasculera 630 mg tablet 1 tab PO DAILY A Thru Z High Potency Tablet 1 tab PO DAILY cetirizine [24Hour Allergy] 10 mg tablet 10 mg PO DAILY PRN (Reason: allergy symptoms) acetaminophen [Acetaminophen Extra Strength] 500 mg tablet 1,000 mg PO QHS PRN (Reason: pain) biotin 5,000 mcg tablet, sublingual 5,000 mcg sublingual DAILY Ozempic 0.25 mg or 0.5 mg(2 mg/1.5 mL) pen injector 0.5 mg subcut QWEEK Rx Instructions: for 4 weeks amiodarone 200 mg Tablet 200 mg PO BID Qty: 60 0RF metolazone 5 mg Tablet 5 mg PO DAILY Qty: 30 0RF guaifenesin [Mucinex] 600 mg Tablet Extended Release 12hr 600 mg PO BID Qty: 20 0RF Held Eliquis 5 mg tablet 5 mg PO BID 90 Days Qty: 180 3RF Hold Instructions: Resume on 05/07/25. pentoxifylline 400 MG tablet 1 tab PO TID Hold Instructions: Resume on 05/07/25. Discontinued metformin 500 MG tablet,ER mynor.[email or web address] 24 hr 500 mg PO BID Referrals / Follow Up: Ras Childress [Pharmacist] - Meena Vasquez MD [Primary Care Provider] - Within 2 Weeks Jayden Still DO [Med Staff - Active Staff] - Within 3 Months Disposition Disposition (needs filled in before D/C Order can be placed): Home, Self Care Charges/Coding Visit Charges Inpatient E&M: 61833 Disch Hosp >30min
[2025-05-03] MEDS: Sodium Ferric Gluconat/Sucrose 250 MG in 0.9% Normal Saline (250mL Bag) 250 ML 135 MG IV (15:57)
[2025-05-03 16:17] VITALS: BP 108/68; PULSE 78; RESP 18; TEMP 36.5; O2SAT 96
--- NOTE | 2025-05-03 17:56 | PN_ITS ---
Progress Note Patient is already had any more signs or symptoms of GI bleeding. She is tolerating a regular diet. Her repeat hemoglobin came back at 7.5 this seems to be stable Physical Exam Const alert and no apparent distress HEENT head/scalp atraumatic and moist oral mucous membranes Resp normal respiratory effort, no retractions, no use of accessory muscles and clear to auscultation bilaterally Cardio regular rate, regular rhythm and S1 normal heart sound GI normal to inspection, nondistended, normoactive bowel sounds, soft to palpation and non-tender Extremity normal to inspection and full ROM Assessment & Plan Assessment/Plan (1) ABLA (acute blood loss anemia): PLAN: This is secondary to GI bleed from anticoagulation. Status post transfused 3 units PRBCs. (2) GI (gastrointestinal bleed): PLAN: We took a relook at her upper GI tract and possibly place a stent because she was having some signs of gastric outlet obstruction along with GI bleeding in the duodenal bulb transitioning to the first portion of the duodenum. She was explained alternatives, risk and benefits include not withstanding bleeding, pressure, subs, perforation, need for surgery . She have an ASA of 3. 05/02/2025-she is status post repeat upper endoscopy with control of bleed. She had duodenal ulcers retreated with epinephrine, hemostasis. Cautery and Hemospray. Her hemoglobin was 7.7 yesterday. It is 7.6 today. Her BUN/creatinine ratio is improving. I do not see any signs of bleeding at this time. She is okay to advance her diet. 05/03/2025-I will give her transfusion of IV iron. She will need to be on iron at home and we will repeat upper endoscopy in approximately 3 months after she is on maximal PPI therapy and antisecretory therapy. (3) Atrial fibrillation with RVR: (4) Transient hypotension: (5) (HFpEF) heart failure with preserved ejection fraction: QUALIFIERS: Heart failure chronicity: acute on chronic Qualified Code(s): I50.33 - Acute on chronic diastolic (congestive) heart failure PLAN: Plan chronic conditions: * DM2: metformin held. SSI. * hypothyroidism: levothyroxine VTE prophylaxis: SCDs. Visit Charges Inpatient E&M: 01521 Subs Hosp L3
== END 2025-05-03 18:10 | disposition home or self-care (01) | DRG 813 ==
LOC: ED 22:26 → ICU 04-27 05:09 → MS2 05-01 12:48
PROVIDERS: Emergency Medicine; Internal Medicine Gastroenterology; Admitting Provider Family Medicine; Emergency Provider Emergency Medicine; PCP Internal Medicine
PROC: 0DJD8ZZ Inspection of Lower Intestinal Tract, Via Natural or Artificial Opening Endoscopic (ICD-10-PCS; CPT 45378; principal; 2025-04-29 16:25)
PROC: 0DJ08ZZ Inspection of Upper Intestinal Tract, Via Natural or Artificial Opening Endoscopic (ICD-10-PCS; CPT 43235; principal; 2025-05-01 16:55)
DX: D68.32 Hemorrhagic disorder due to extrinsic circulating anticoagulants (principal); J96.01 Acute respiratory failure with hypoxia; K26.4 Chronic or unspecified duodenal ulcer with hemorrhage; I50.33 Acute on chronic diastolic (congestive) heart failure; I13.0 Hypertensive heart and chronic kidney disease with heart failure and stage 1 through stage 4 chronic kidney disease, or unspecified chronic kidney disease; D62 Acute posthemorrhagic anemia; Z66 Do not resuscitate; E11.59 Type 2 diabetes mellitus with other circulatory complications; N18.30 Chronic kidney disease, stage 3 unspecified; E03.9 Hypothyroidism, unspecified; E66.9 Obesity, unspecified; I48.91 Unspecified atrial fibrillation; I89.0 Lymphedema, not elsewhere classified; E11.40 Type 2 diabetes mellitus with diabetic neuropathy, unspecified; I95.9 Hypotension, unspecified; E11.22 Type 2 diabetes mellitus with diabetic chronic kidney disease; I87.2 Venous insufficiency (chronic) (peripheral); K30 Functional dyspepsia; K57.30 Diverticulosis of large intestine without perforation or abscess without bleeding; Z79.01 Long term (current) use of anticoagulants; Z82.49 Family history of ischemic heart disease and other diseases of the circulatory system; Z79.84 Long term (current) use of oral hypoglycemic drugs; Z85.3 Personal history of malignant neoplasm of breast; Z68.39 Body mass index [BMI] 39.0-39.9, adult; T45.515A Adverse effect of anticoagulants, initial encounter
CPT/HCPCS: 36415; 71045; 80048; 80053; 82274; 82962; 83735; 85014; 85018; 85025; 85610; 85730; 86850; 86900; 86901; 87640; 93005; 94668; 94762; 97110; 97116; 97161; 97166; 97530; 97535; 97803; 99285; C1889; P9016; A4216; J2405; J2916; J7165

== ENCOUNTER 2025-05-08 12:58 | Emergency (ER) | payer MEDICARE, SELFPAY ==
[2025-05-08] VITALS (10 sets, daily range): BP systolic 84–131; BP diastolic 45–98; PULSE 65–141; RESP 13–19; TEMP 36.8; O2SAT 95–100
--- NOTE | 2025-05-08 14:10 | EDS_ITS ---
HPI History of Present Illness Chief Complaint: Hypotension Informant: patient and family Onset/Context/Timing Onset: Days Context: Gradual Onset Timing: Continuous Quality: Shaking chills Location: Generalized Worsened by: Exertion Relieved by: Rest Narrative Narrative: Patient presents with low blood pressure that became worse today. Patient states her blood pressure was 87/44 and she was referred to the emergency department. Patient was admitted to the hospital recently and was discharged on 05/03/2025. While in the hospital, patient was noted to have a bleeding ulcer in her duodenum which was cauterized by Dr. Still. Patient also had 2 ultrasound- guided thoracentesis while in the hospital. Patient states she has been having increasing lower extremity swelling and drainage. Patient also admits to some shaking chills. Patient states her breathing is worse with any exertion. [facility] Medical History Chronic anticoagulation Diabetes Kidney disease Non-smoker Venous (peripheral) insufficiency Atrial fibrillation CHF (congestive heart failure) Venous stasis ulcer Hyperpigmentation of skin Lipodermatosclerosis of both lower extremities Right leg swelling Left leg swelling Varicose veins of lower extremity with inflammation, 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 Chronic venous insufficiency Generalized osteoarthrosis History of right breast cancer Cardiomegaly Home Medications ?Medication ?Instructions ?Recorded ?Last Taken ?Type gabapentin 300 mg capsule 300 mg PO QHS Neuropathy 09/0604/15/25 History (Neurontin) levothyroxine 100 mcg tablet 100 mcg PO DAILY thyroid 09/30/17 04/16/25 History lisinopril 40 mg tablet 40 mg PO DAILY blood pressur e 09/30/17 04/15/25 History Held on 05/08/25. Instructions: Hold until your blood pressure is better pentoxifylline 400 mg 1 tab PO TID circulation 09/0604/16/25 History tablet,extended release Held on 05/03/25. Instructions: Resume on 05/07/25. acetaminophen 500 mg tablet 1,000 mg PO QHS PRN pain 0 01/08/25 Unknown History (Acetaminophen Extra Strength) cetirizine 10 mg tablet (24Hour 10 mg PO DAILY PRN all ergy symptoms 01/08/25 Unknown History Allergy) diosmin complex no.1 630 mg tablet 1 tab PO DAILY 12/2204/15/25 History (Vasculera) qcsmqcvjxoot-[id number] 1 tab PO DAILY vitamin 04/16/25 History tablet (A Thru Z High Potency tablet) simvastatin 20 mg tablet 20 mg PO QHS cholesterol 04/15/25 History apixaban 5 mg tablet (Eliquis) 5 mg PO BID blood thinn er 90 days 01/23/25 04/16/25 Rx Held on 05/03/25. #180 tabs Instructions: Resume on 05/07/25. diltiazem HCl 240 mg 240 mg PO DAILY heart rate 3 01/23/25 04/16/25 Rx capsule,extended release 24 hr months #90 caps (Cardizem CD) Held on 05/08/25. Instructions: Hold until you are blood pressure is better metoprolol tartrate 50 mg tablet 50 mg PO BID blood pr essure 90 01/23/25 04/16/25 Rx Held on 05/08/25. days #180 tabs Instructions: Hold until your blood pressure is better biotin 5,000 mcg sublingual tablet 5,000 mcg sublingua l DAILY 04/16/25 04/15/25 History supplement semaglutide 0.25 mg or 0.5 mg (2 0.5 mg subcut QWEEK d iabetes 04/16/25 Unknown History mg/1.5 mL) subcutaneous pen injector (Ozempic) amiodarone 200 mg tablet 200 mg PO BID #60 tabs 04/26 Unknown Rx guaifenesin 600 mg tablet, 600 mg PO BID #20 tabs 05/15 Unknown Rx extended release 12 hr (Mucinex) metolazone 5 mg tablet 5 mg PO DAILY #30 tabs 04/26 Unknown Rx Held on 05/08/25. Instructions: Hold until your blood pressure is better pantoprazole 40 mg tablet,delayed 40 mg PO BID #60 tab s 05/03/25 Unknown Rx release (Protonix) sucralfate 1 gram tablet 1 g PO TIDAC #90 tabs Unknown Rx Allergy/AdvReac Type Severity Reaction Status Date / Time enoxaparin (From Lovenox) Allergy Unknown Verified 05/08/25 11:03 oxycodone Allergy Unknown Verified 05/08/25 11:03 Penicillins (PCN) Allergy Unknown Verified 05/08/25 11:03 Family History Father Heart disease Hypertension Heart failure Mother Kidney disease Heart disease Cancer Surgical History History of lumpectomy of right breast History of lumbar laminectomy History of total replacement of both hip joints History of total bilateral knee replacement (TKR) Social History household members: spouse Smoking Status: Never smoker alcohol intake: never substance use type: does not use ROS ROS ED Constitutional Constitutional ED: Denies chills or fever(s) Eyes Eyes: Denies blurry vision or change in vision ENT ENT ED: Denies rhinorrhea or sore throat Cardiovascular Cardiovascular: Denies chest pain or palpitations Respiratory/Chest Respiratory/Chest: Denies cough or dyspnea Gastrointestinal Gastrointestinal: Denies nausea or vomiting Genitourinary Genitourinary ED: Denies dysuria or hematuria Musculoskeletal Musculoskeletal: Denies back pain or neck pain Integumentary Reports rash; Denies abscess Neurologic Neurologic: Denies headache(s) or weakness Allergic/Immunologic Allergic/Immunologic ED: Denies mouth swelling or urticaria EXAM Physical Exam Const Vital Signs: 05/08/25 12:59 05/08/25 12:59 05/08/25 13:01 Temperature 98.3 F Temperature Source Temporal Pulse Rate 103 H 111 H Pulse Rate [Lying] Pulse Rate [Sitting (for 1 minute prior to obtaining)] Pulse Rate [Standing (for 1 minute prior to obtaining)] Respiratory Rate 14 17 Respiratory Effort Normal Non-Labored Blood Pressure 84/45 L 108/82 H Blood Pressure [Lying] Blood Pressure [Sitting (for 1 minute prior to obtaining)] Blood Pressure [Standing (for 1 minute prior to obtaining)] Blood Pressure Mean 58 90 Blood Pressure Mean [Lying] Blood Pressure Mean [Sitting (for 1 minute prior to obtaining)] Blood Pressure Mean [Standing (for 1 minute prior to obtaining)] Pulse Ox 95 100 Oxygen Delivery Method Nasal Cannula Oxygen Flow Rate (L/min) 2 05/08/25 13:59 05/08/25 15:00 05/08/25 16:00 Temperature Temperature Source Pulse Rate 90 115 H Pulse Rate [Lying] Pulse Rate [Sitting (for 1 minute prior to obtaining)] Pulse Rate [Standing (for 1 minute prior to obtaining)] Respiratory Rate 13 19 H Respiratory Effort Blood Pressure 127/88 H 130/98 H 128/84 H Blood Pressure [Lying] Blood Pressure [Sitting (for 1 minute prior to obtaining)] Blood Pressure [Standing (for 1 minute prior to obtaining)] Blood Pressure Mean 101 108 98 Blood Pressure Mean [Lying] Blood Pressure Mean [Sitting (for 1 minute prior to obtaining)] Blood Pressure Mean [Standing (for 1 minute prior to obtaining)] Pulse Ox 100 100 Oxygen Delivery Method Oxygen Flow Rate (L/min) 05/08/25 16:30 05/08/25 17:00 05/08/25 18:00 Temperature Temperature Source Pulse Rate 104 H 65 Pulse Rate [Lying] 132 H Pulse Rate [Sitting (for 1 minute prior to obtaining)] 120 H Pulse Rate [Standing (for 1 minute prior to obtaining)] 141 H Respiratory Rate 14 16 Respiratory Effort Blood Pressure 125/88 H 103/63 Blood Pressure [Lying] 131/83 H Blood Pressure [Sitting (for 1 minute prior to obtaining)] 128/84 H Blood Pressure [Standing (for 1 minute prior to obtaining)] 128/80 H Blood Pressure Mean 100 76 Blood Pressure Mean [Lying] 99 Blood Pressure Mean [Sitting (for 1 minute prior to obtaining)] 98 Blood Pressure Mean [Standing (for 1 minute prior to obtaining)] 96 Pulse Ox 100 99 Oxygen Delivery Method Nasal Cannula Oxygen Flow Rate (L/min) 2 Positive well nourished and well developed General Appearance ED: well developed and NAD HEENT Reports moist mucous membranes Neck supple and no JVD Resp normal respiratory effort Auscultation: diminished lung sounds diffuse Cardio Rate: tachycardic Rhythm: abnormal rhythm irregularly irregular GI non-tender and non-distended Palpation: soft Extremity Extremity Narrative: There is tenderness and edema of the lower extremities bilaterally. There is mild erythema. There is no warmth noted. There is no calf tenderness. Neuro oriented x3, CN's II-XII intact bilaterally and no sensory deficits noted Sensorium / Orientation: alert Motor Exam: strength 5/5 throughout Psych mental status grossly normal MDM MDM MDM Narrative Medical decision making narrative: Differential diagnosis includes anemia, dehydration, electrolyte abnormality, urinary tract infection, sepsis, pneumonia, bronchitis, congestive heart failure, and pleural effusion. EKG will be obtained to assess for cardiac dysrhythmia and cardiac ischemia. Chest x-ray will be obtained to assess for pneumonia or bronchitis. CBC will be obtained to assess for leukocytosis and anemia. Comprehensive metabolic profile will be obtained to assess for hepatic function, renal function, and electrolyte abnormality. Serum lactate will be obtained to assess for sepsis. PT with INR PTT will be obtained to assess for coagulopathy. BNP will be obtained to assess for congestive heart failure. Urinalysis will be obtained to assess for urinary tract infection and hematuria. Blood cultures will be obtained to assess for sepsis. Urine culture will be obtained to assess for urinary tract infection. History & Record Review Additional record(s) reviewed:: Prior inpatient record, Prior ED visit and Prior labs Lab Data Attestation: I reviewed the patient's lab results. Lab results narrative: CBC was reviewed. There is an anemia with a hemoglobin was 8.0 and hematocrit was 25.9. This was improved compared to previous results. Comprehensive me tabolic profile was reviewed. Creatinine was slightly elevated at 1.30. This is consistent with previous results. proBNP was reviewed and was elevated at 3384. This was improved from previous result. Urinalysis was reviewed. There is no evidence of urinary tract infection or hematuria. PT with INR and PTT were reviewed. Pro time was 21.5 and INR is 1.8. PTT was 33.6. Labs: Laboratory Results - last 24 hr 05/08/25 05/08/25 14:48 16:28 WBC 7.5 RBC 2.70 L Hgb 8.0 L Hct 25.9 L MCV 95.9 MCH 29.6 MCHC 30.9 L RDW Std Deviation 57.2 H RDW Coeff of Marcial 17.0 H Plt Count 273 MPV 10.3 Immature Gran % (Auto) 0.400 Neut % (Auto) 79.7 H Lymph % (Auto) 10.9 L [place] % (Auto) 6.9 Eos % (Auto) 1.3 Baso % (Auto) 0.8 Absolute Neuts (auto) 6.0 Absolute Lymphs (auto) 0.82 L Nucleated RBC % 0 PT 21.5 H INR 1.8 APTT 33.6 Sodium 139 Potassium 4.4 Chloride 101 Carbon Dioxide 29.5 Anion Gap 9 BUN 17 Creatinine 1.30 H Est GFR (MDRD) Non-Af 40 L BUN/Creatinine Ratio 12.8 Glucose 110 H Lactic Acid 1.4 Calcium 9.0 Total Bilirubin 0.29 AST 24 ALT 12 Alkaline Phosphatase 76 NT pro BNP II 3384 H Total Protein 6.2 Albumin 3.2 L Globulin 3.1 Albumin/Globulin Ratio 1.0 Urine Color Straw Urine Clarity Clear Urine pH 6.0 Ur Specific [place] 1.010 Urine Protein 30 H Urine Glucose (UA) Normal Urine Ketones Negative Urine Occult Blood Negative Urine Nitrite Negative Urine Bilirubin Negative Urine Urobilinogen Normal Ur Leukocyte Esterase 25 H Urine RBC 0-5 SEEN Urine WBC 0-5 SEEN Ur Squamous Epith Cells 0-5 SEEN Ur Transition Epith Cell 0-5 SEEN Urine Bacteria 0 SEEN Urine Mucus 0 SEEN Radiography Chest X-Ray - ED: 2 View, Read by ED Physician, Read by Radiologist and Right Effusion Diagnostic Testing: Clinical Impression(s) from Imaging Studies Chest X-Ray 05/08/25 14:50 IMPRESSION: Right pleural effusion. Atelectasis and/or consolidation in the right lung base Reading Location[facility] and lateral chest x-ray was obtained. There are 2 views. On my independent interpretation, lung triplett showed a right pleural effusion and atelectasis versus infiltrate in the right lung base. There is normal cardiac silhouette. Bony thorax is normal. Radiologist also interpreted the x-ray and agrees. EKG Initial EKG: Attestation: I personally reviewed and interpreted this EKG as follows: Interpretation: Atrial Fibrillation (111) and RBBB Comments: EKG was obtained. On my independent interpretation, it showed atrial fibrillation with a rate of 111. QRS interval is slightly prolonged at 158 ms. QTc interval was 522 ms. There is left axis deviation at -34. There is a right bundle branch block pattern noted. There are no acute ST or T wave changes noted. Prior EKG tracings: available for review Prior: Unchanged (04/27/2025) Treatment and Re-Evaluation :: Patient was having chills with a normal temperature. Patient was advised of her findings. Patient's blood pressure improved without any treatment. Patient and family were apprised of the findings. Patient was advised that her chills could be from possible infiltrate in the right base. Patient was given a dose of Zit hromax here. Patient does not appear to be septic at this time. Patient was ambulated with a pulse oximeter. If the patient is able to ambulate with a walker and he is steady on her feet, I feel the patient can be discharged home with oral antibiotics. Patient and family understand and are agreeable with the plan. All questions were answered. Discharge Plan Triage Chief Complaint: Hypotension ED Provider: Ras Levy Dx/Rx/DC Orders Clinical Impression: Pleural effusion on right, CHF (congestive heart failure), PAD (peripheral artery disease), Lymphedema, Pneumonia Instructions: ED Peripheral Edema, Bilateral, ED Low Blood Pressure, All Causes Prescriptions: Held diltiazem HCl [Cardizem CD] 240 mg capsule,extended release 24hr 240 mg PO DAILY 90 Days Qty: 90 3RF Hold Instructions: Hold until you are blood pressure is better Rx Instructions: Hold for heart less than 50 or systolic blood pressure less than 100 mmHg. metoprolol tartrate 50 mg tablet 50 mg PO BID 90 Days Qty: 180 3RF Hold Instructions: Hold until your blood pressure is better Rx Instructions: Hold for heart less than 50 or systolic blood pressure less than 100 mmHg. lisinopril 40 MG tablet 40 mg PO DAILY Hold Instructions: Hold until your blood pressure is better metolazone 5 mg Tablet 5 mg PO DAILY Qty: 30 0RF Hold Instructions: Hold until your blood pressure is better No Action Eliquis 5 mg tablet 5 mg PO BID 90 Days Qty: 180 3RF levothyroxine 100 MCG tablet 100 mcg PO DAILY gabapentin [Neurontin] 300 MG capsule 300 mg PO QHS pentoxifylline 400 MG tablet 1 tab PO TID simvastatin 20 mg tablet 20 mg PO QHS Patient Comments: [NO ORIGINAL SIG] Vasculera 630 mg tablet 1 tab PO DAILY A Thru Z High Potency Tablet 1 tab PO DAILY cetirizine [24Hour Allergy] 10 mg tablet 10 mg PO DAILY PRN (Reason: allergy symptoms) acetaminophen [Acetaminophen Extra Strength] 500 mg tablet 1,000 mg PO QHS PRN (Reason: pain) biotin 5,000 mcg tablet, sublingual 5,000 mcg sublingual DAILY Ozempic 0.25 mg or 0.5 mg(2 mg/1.5 mL) pen injector 0.5 mg subcut QWEEK Rx Instructions: for 4 weeks amiodarone 200 mg Tablet 200 mg PO BID Qty: 60 0RF guaifenesin [Mucinex] 600 mg Tablet Extended Release 12hr 600 mg PO BID Qty: 20 0RF pantoprazole [Protonix] 40 mg tablet,delayed release (DR/EC) 40 mg PO BID Qty: 60 0RF sucralfate 1 gram Tablet 1 g PO TIDAC Qty: 90 0RF Primary Care Provider: Meena Vasquez Referrals: Chris Fields MD [Med Staff - Active Staff] - 3-5 Days Meena Vasquez MD [[facility]] - 3-5 Days Activity Restrictions/Additional Instructions: Hold your metolazone, lisinopril, metoprolol, and diltiazem. Cardiology office is also recommended holding your Eliquis. Print Language: Kyrgyz Disposition Disposition: Home, Self Care
--- NOTE | 2025-05-08 14:50 | RAD_ITS ---
PROCEDURE: CHEST PA AND LATERAL 05/08/2025 REASON FOR EXAM: DYSPNEA TECHNIQUE: CHEST PA AND LATERAL COMPARISON: Chest radiograph 2024. FINDINGS: Hardware: None. Heart: Upper limits of normal to mildly enlarged Mediastinum: Normal contour Lungs: Moderate right pleural effusion and strandy right mid zone atelectasis. Left lung is clear. No left pleural effusion identified. Bones: No aggressive bony lesion. RAD/Chest PA and Lateral IMPRESSION: Right pleural effusion. Atelectasis and/or consolidation in the right lung bas e Reading Location[facility]
[2025-05-08 15:25] LABS: Absolute Lymphocyte Count 0.82 X10^3/uL (0.83-4.51); Basophil# 0.06 X10^3/uL; Basophil% 0.8 % (0-1); Eosinophils% 1.3 % (0-5); Hematocrit 25.9 % (37-47); Lymphocyte # 0.82 X10^3/ul (0.83-4.51); Lymphocyte % 10.9 % (19-41); Mean Corp Hgb Conc 30.9 g/dL (32-36); Mean Corpuscular Hgb 29.6 pg (27.0-32.0); Mean Corpuscular Volume 95.9 fL (81-99); Mean Platelet Vol. 10.3 fl (6.2-12.0); Monocyte# 0.52 X10^3/uL; Monocyte% 6.9 % (0-10); NRBC Flagged by Analyzer 0 % (0-5); Neutrophil # 5.98 X10^3/uL (2.7-7.7); Neutrophil % 79.7 % (47-70); Platelet Count 273 K/mm3 (150-450); RBC Distribution Width SD 57.2 fl (35.1-43.9); White Blood Count 7.5 K/mm3 (4.4-11.0)
[2025-05-08 15:45] LABS: Lactic Acid 1.4 mmol/L (0.0-2.0)
[2025-05-08 15:46] LABS: AST(SGOT) 24 U/L (<=31); Alanine Aminotransfer ALT/SGPT 12 U/L (<=34); Albumin, Serum 3.2 g/dL (3.4-4.8); Alkaline Phosphatase 76 U/L (35-104); BUN 17 mg/dL (4-19); BUN/Creat Ratio 12.8 RATIO (10-20); EST Glomerular Filtration Rate 40 (>60); Globulin 3.1 g/dL (2.2-4.2); Glucose 110 mg/dL (70-99); Protein, Total 6.2 g/dL (5.9-8.4)
[2025-05-08 15:47] LABS: Anion Gap 9 (5-15); Carbon Dioxide 29.5 mmol/L (21.0-32.0); Chloride 101 mmol/L (98-108); Potassium 4.4 mmol/L (3.3-5.1); Pro- Brain NATRIURETIC PEPTIDE 3384 pg/mL (<=1800); Sodium Level 139 mmol/L (133-145); Total Bilirubin 0.29 mg/dL (0.00-1.30)
[2025-05-08 15:50] LABS: International Normalized Ratio 1.8; Partial Thromboplast Time 33.6 Seconds (24.1-36.2); Prothrombin Time (Protime)PT. 21.5 SECONDS (11.7-14.9)
[2025-05-08 16:45] LABS: Bacteria 0 SEEN /hpf (None Seen); Mucous, Urine 0 SEEN /hpf (<or=2+)
[2025-05-08 16:57] LABS: Color, Urine Straw (Yellow); Glucose, Dipstick Normal (Normal); Ketone-Dipstick Negative (Negative); Leukocyte Esterase-Dipstick 25 /ul (Negative); Nitrite-Dipstick Negative (Negative); Occult Blood-Urine Negative /ul (Negative); Protein-Dipstick 30 mg/dl (Negative); Urine Bilirubin Dipstick Negative (Negative); Urine Clarity Clear (Clear); Urine Urobilinogen Normal (Normal)
[2025-05-08 18:12] LABS: Red Blood Cells-Urine 0-5 SEEN /hpf (0-5); Squamous Epithelial Cells - UA 0-5 SEEN /hpf (5-10); Transitional Epithelial - Ur 0-5 SEEN /hpf (0-5); White Blood Cells 0-5 SEEN /hpf (0-5)
[2025-05-08] MEDS: Azithromycin 250 MG Tablet 500 MG PO (19:27)
== END 2025-05-08 20:04 | disposition home or self-care (01) ==
PROVIDERS: Emergency Provider Emergency Medicine; PCP Internal Medicine; Visit Provider Emergency Medicine
DX: J18.9 Pneumonia, unspecified organism (principal); I50.9 Heart failure, unspecified; I48.91 Unspecified atrial fibrillation; E11.9 Type 2 diabetes mellitus without complications; J90 Pleural effusion, not elsewhere classified; I89.0 Lymphedema, not elsewhere classified; I95.9 Hypotension, unspecified; Z85.3 Personal history of malignant neoplasm of breast; Z79.899 Other long term (current) drug therapy; Z79.01 Long term (current) use of anticoagulants; Z79.85 Long-term (current) use of injectable non-insulin antidiabetic drugs; Z96.643 Presence of artificial hip joint, bilateral; Z96.653 Presence of artificial knee joint, bilateral
CPT/HCPCS: 71046; 80053; 81001; 83605; 83880; 85025; 85610; 85730; 87040; 87086; 93005; 99285; P9612; A4216

== ENCOUNTER → 2025-05-08 | Outpatient (CLI) | payer MEDICARE, SELFPAY ==
[2025-05-08 12:54] LABS: Absolute Lymphocyte Count 0.58 X10^3/uL (0.83-4.51); Absolute Neutrophil Count 5.6 X10^3/uL (2.0-7.7); Basophil# 0.06 X10^3/uL; Basophil% 0.9 % (0-1); Eosinophil# 0.07 X10^3/uL; Lymphocyte # 0.58 X10^3/ul (0.83-4.51); Lymphocyte % 8.4 % (19-41); Mean Corp Hgb Conc 29.6 g/dL (32-36); Mean Corpuscular Hgb 28.5 pg (27.0-32.0); Mean Corpuscular Volume 96.1 fL (81-99); Mean Platelet Vol. 9.7 fl (6.2-12.0); Monocyte# 0.52 X10^3/uL; Monocyte% 7.6 % (0-10); NRBC Flagged by Analyzer 0 % (0-5); Neutrophil # 5.62 X10^3/uL (2.7-7.7); Neutrophil % 81.7 % (47-70); POSITIVE DIFFERENTIAL YES; Platelet Count 281 K/mm3 (150-450); RBC Distribution Width CV 16.7 % (11.6-14.6); RBC Distribution Width SD 56.6 fl (35.1-43.9); Red Blood Count 2.81 M/mm3 (4.2-5.4); White Blood Count 6.9 K/mm3 (4.4-11.0)
[2025-05-08 13:22] LABS: Anion Gap 7 (5-15); BUN 17 mg/dL (4-19); BUN/Creat Ratio 12.4 RATIO (10-20); Calcium,Total 8.9 mg/dL (7.6-11.0); Carbon Dioxide 30.5 mmol/L (21.0-32.0); Chloride 101 mmol/L (98-108); Creatinine, Serum 1.36 mg/dL (0.70-1.20); EST Glomerular Filtration Rate 38 (>60); Glucose 139 mg/dL (70-99); Potassium 4.4 mmol/L (3.3-5.1); Sodium Level 138 mmol/L (133-145)
== END | disposition home or self-care (01) ==
LOC: LAB 12:28
PROVIDERS: PCP Internal Medicine; Referring Provider Student in an Organized Health Care Education/Training Program; Visit Provider Student in an Organized Health Care Education/Training Program
DX: D64.9 Anemia, unspecified (principal); I10 Essential (primary) hypertension; N17.9 Acute kidney failure, unspecified
CPT/HCPCS: 36415; 80048; 85025

== ENCOUNTER 2025-05-15 07:59 | Outpatient (RCR) | payer MEDICARE, SELFPAY ==
[2025-05-15 08:06] VITALS: BP 106/58; PULSE 108; RESP 18; TEMP 36.5; BMI 362.9
--- NOTE | 2025-05-15 11:30 | HP.PCM_ITS ---
History of Present Illness Date of Service: 05/15/25 History of Wound: This is an 81-year-old female with a longstanding history of chronic venous insufficiency and vein related symptoms and manifestations. The patient has been previously treated in the past for venous ulcerations in the left lower extremity. In 2016, she was treated at our facility by Dr. Argentina Tellez for similar problems. She lives part of her year in [place]. In May, while in [place], she was treated for a venous ulceration near the left lateral malleolus. According the patient, she was diagnosed with cellulitis and wound infection, and treated with oral clindamycin. She has been wearing compression in the left lower extremity. She has recently been treated by her primary care physician locally, Dr. Vasquez at the [facility], and by her guardian family member, Dr. Carlos Shaw. She is currently taking horse chestnut extract. She claims to sleep on a flat mattress at night. She is currently wearing compression stockings of 10 to 15 mmHg compression, claiming to be unable to don compression stockings of a higher degree of compression. Without compression stockings, the patient notes swelling in her left lower extremity, which is typically worse at the end of the day. The patient has manifestations of severe venous disease in her lower extremities, consisting of lipodermatosclerosis, hyperpigmentation, and venous stasis dermatitis. The manifestations are more severe in the left lower extremity. FOR[facility], [facility] Medical History Chronic anticoagulation Diabetes Kidney disease Non-smoker Venous (peripheral) insufficiency Atrial fibrillation CHF (congestive heart failure) Venous stasis ulcer Hyperpigmentation of skin Lipodermatosclerosis of both lower extremities Right leg swelling Left leg swelling Varicose veins of lower extremity with inflammation, 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 Chronic venous insufficiency Generalized osteoarthrosis History of right breast cancer Cardiomegaly Home Medications Medication Instructions Recorded Last Taken Type gabapentin 300 mg capsule 300 mg PO QHS Neuropathy 09/0604/15/25 History (Neurontin) levothyroxine 100 mcg tablet 100 mcg PO DAILY thyroid 09/30/17 04/16/25 History lisinopril 40 mg tablet 40 mg PO DAILY blood pressur e 09/30/17 04/15/25 History Held on 05/08/25. Instructions: Hold until your blood pressure is better pentoxifylline 400 mg 1 tab PO TID circulation 09/0604/16/25 History tablet,extended release Held on 05/03/25. Instructions: Resume on 05/07/25. acetaminophen 500 mg tablet 1,000 mg PO QHS PRN pain 0 01/08/25 Unknown History (Acetaminophen Extra Strength) cetirizine 10 mg tablet (24Hour 10 mg PO DAILY PRN all ergy symptoms 01/08/25 Unknown History Allergy) diosmin complex no.1 630 mg tablet 1 tab PO DAILY 12/2204/15/25 History (Vasculera) mzpamthbptmq-hjuntmab-azngde 1 tab PO DAILY vitamin 04/16/25 History tablet (A Thru Z High Potency tablet) simvastatin 20 mg tablet 20 mg PO QHS cholesterol 04/15/25 History apixaban 5 mg tablet (Eliquis) 5 mg PO BID blood thinn er 90 days 01/23/25 04/16/25 Rx Held on 05/03/25. #180 tabs Instructions: Resume on 05/07/25. diltiazem HCl 240 mg 240 mg PO DAILY heart rate 3 01/23/25 04/16/25 Rx capsule,extended release 24 hr months #90 caps (Cardizem CD) Held on 05/08/25. Instructions: Hold until you are blood pressure is better biotin 5,000 mcg sublingual tablet 5,000 mcg sublingua l DAILY 04/16/25 04/15/25 History Held on 05/15/25. supplement Instructions: Ordered semaglutide 0.25 mg or 0.5 mg (2 0.5 mg subcut QWEEK d patrick 04/16/25 Unknown History mg/1.5 mL) subcutaneous pen injector (Ozempic) Held on 05/15/25. Instructions: Order Completed amiodarone 200 mg tablet 200 mg PO BID #60 tabs 04/26 Unknown Rx guaifenesin 600 mg tablet, 600 mg PO BID #20 tabs 05/15 Unknown Rx extended release 12 hr (Mucinex) metolazone 5 mg tablet 5 mg PO DAILY #30 tabs 04/26 Unknown Rx Held on 05/08/25. Instructions: Hold until your blood pressure is better pantoprazole 40 mg tablet,delayed 40 mg PO BID #60 tab s 05/03/25 Unknown Rx release (Protonix) sucralfate 1 gram tablet 1 g PO TIDAC #90 tabs Unknown Rx empagliflozin 10 mg tablet 10 mg PO DAILY 05/15/25 Unk nown History (Jardiance) metoprolol tartrate 50 mg tablet 25 mg PO BID blood pr essure 05/15/25 Unknown History Held on 05/08/25. Instructions: Hold until your blood pressure is better Allergy/AdvReac Type Severity Reaction Status Date / Time enoxaparin (From Lovenox) Allergy Unknown Verified 05/15/25 08:34 oxycodone Allergy Unknown Verified 05/15/25 08:34 Penicillins (PCN) Allergy Unknown Verified 05/15/25 08:34 Family History Father Heart disease Hypertension Heart failure Mother Kidney disease Heart disease Cancer Surgical History History of lumpectomy of right breast History of lumbar laminectomy History of total replacement of both hip joints History of total bilateral knee replacement (TKR) Social History household members: spouse Smoking Status: Never smoker alcohol intake: never substance use type: does not use Vital Signs Vital Signs Vital Signs: 05/15/25 08:06 Temperature 97.7 F L Temperature Source Temporal Pulse Rate 108 H Respiratory Rate 18 Blood Pressure 106/58 L Blood Pressure Mean 74 Blood Pressure Source Monitor Oxygen Flow Rate (L/min) 2 Weight Weight: 1921 lb 0.819 oz Body Mass Index (BMI) 362.9 Debridement Note Debridement Note Post-Debridement Measurements and Additional Note: Post-Debridement Measurements/Treatment TOREY - Nurse 1 - General Ulcer Assessment Start: 05/15/25 08:06 Freq: Status: Active Protocol: JORGE Activity Type Activity Date Activity User E-sign Co-sign Detail Recorded Client Recorded Date Recorded By Document 05/15/25 08:06 DL [id number] 05/15/25 08:32 DL 05/15/25 08:06 - Today's Visit Information Type of service Initial Visit Arrival Mode Wheelchair Transfer Assistance Manual Transfer Assist (Other) x2 Patient Identification Verified (Name & Yes ) Patient Requires Transmission-Based No Precautions Height and Weight Height 5 ft 1 in Weight 1921 lb 0.819 oz Weight in Pounds 1921.1 lbs Body Mass Index (BMI) 362.9 BMI Classification Obese Vital Signs Temperature (97.8 F-99.1 F) 97.7 F L Temperature Source Temporal Pulse Rate (60-100) 108 H Pulse Location Monitor Respiratory Rate (12-18) 18 Respiratory rate source Observation O2 L/MIN 2 Blood Pressure (90/60-120/80) 106/58 L Blood Pressure Mean 74 Source Monitor Pain Scale: 0-10 Numeric Is Patient Pain Free? Yes Lower Extremity Assessment/ Foot Assessment/ Toe Nail Assessment Left -Posterior Tibial Palpable No -Dorsalis Pedis Palpable No -Dorsalis Pedis Doppler Monophasic -Extremity Color Hemosiderin -Hair Growth on Legs No -Hair Growth on Toes No -Temperature of Extremity Warm -Capillary Refill Greater than 3 Seconds -Dependent Rubor No -Blanched when Elevated No -Lipodermatosclerosis No -Other Deformity No -Prior Foot Ulcer No -Charcot Joint No -Prior Amputation No -Thick No -Discolored No -Deformed No -Improper Length & Hygeine No Right -Posterior Tibial Palpable No -Posterior Tibial Doppler Monophasic -Dorsalis Pedis Palpable No -Dorsalis Pedis Doppler Monophasic -Extremity Color Hemosiderin -Hair Growth on Legs No -Hair Growth on Toes No -Temperature of Extremity Warm -Capillary Refill Less than 3 Seconds -Dependent Rubor No -Blanched when Elevated No -Lipodermatosclerosis No -Other Deformity No -Prior Foot Ulcer No -Charcot Joint No -Prior Amputation No -Thick No -Discolored No -Deformed No -Improper Length & Hygeine No Neuropathy Assessment Feet - Top Side and Bottom <Entered> (a) Communication Assessment Preferred language Marshallese Able to Read Yes Able to Write Yes Right Hearing Abillity Use of Hearing Aid Left Hearing Abillity Use of Hearing Aid Visual Assistive Devices Glasses Teaching Assessment Preferences Verbal,Written, Demonstration Barriers to Learning None Readiness To Learn Good Willingness to Engage in Self Management Med Activies Readiness to Engage in Self Management Med Activities Anxiety Level Calm Cooperation Cooperative Perception Coherent Interest in Health Problem Asks Questions Education Importance Acknowledges Need Does Patient Smoke tobacco or other No substances Smoking Status Never smoker Is Patient Diabetic Yes (a) 1 - + WC - Nurse 1 - General Ulcer Measurement Start: 05/15/25 08:06 Freq: Status: Active Protocol: Activity Type Activity Date Activity User E-sign Co-sign Detail Recorded Client Recorded Date Recorded By Document 05/15/25 08:06 DL [id number] 05/15/25 08:32 DL 05/15/25 08:06 Wound Center Nurse 1 #2 Right Lateral Lower Extremity CLUSTER -Current Size (cm) - Length 2 -Current Size (cm) - Width 1.8 -Current Size (cm) - Depth 0.1 -Total Square Cm 3.6 -Photo Taken Yes -Exudate Amt Medium -Exudate Type Serosanguineous -Wound Margin Distinct, Outline Attached -Granulation Amt Large (67-100%) -Granulation Quality Raymer -Necrosis Amt Small (1-33%) -Necrotic Tissue Type Adherent Slough -Structure Exposed N/A -Texture (Deborah-wound Skin Appearance) Localized Edema ,Scarring -Moisture (Deborah-wound Skin Appearance) Weeping -Color (Deborah-wound Skin Appearance) Hemosiderin Staining -Temperature (Deborah-wound Skin No Abnormality Appearance) (Pt Warm) -Ulcer Cleansing Soap and Water -Foul Odor after Cleansing No -Anesthetic Used 5% Lidocaine Gel Right Calf (cm) 42 Right Ankle (cm) 22.7 Left Calf (cm) 44.5 Left Ankle (cm) 25 WC - Nurse 2 - General Ulcer CM Notes Start: 05/15/25 08:06 Freq: Status: Active Protocol: Activity Type Activity Date Activity User E-sign Co-sign Detail Recorded Client Recorded Date Recorded By Document 05/15/25 08:53 [facility] [id number] 05/15/25 09:12 [facility] 05/15/25 08:53 Wound Center Nurse 2 #3- L LAT LE BLISTER AREA -Time 08:56 -Correct Patient Yes -Correct Side, Site, Position Yes -Correct Procedure Yes -Procedure Performed Yes -Type of Procedure Debridement -Clinical Debridement Subcutaneous -Tissue Removed Subcutaneous -Post Debridement (cm) - Length 4.5 -Post Debridement (cm) - Width 7.4 -Post Debridement (cm) - Depth 0.2 -Total Square (Post) (cm) 33.30 -Area of Debridement (cm) - Length 4.5 -Area of Debridement (cm) - Width 7.4 -Total Square (Area) (cm) 33.30 -Tunneling No -Undermining/Tunneling No -Circular Undermining No -Wound/Ulcer Outcome Not Healed -Ulcer Cleansing Rinsed/ Irrigated with Saline -Foul Odor after Cleansing No -Bioengineered Tissue No -Bleeding Controlled with Pressure -Treatment Response Procedure Tolerated Well -Debridement - Subq, 1st 20sq cm Yes -Debridement, SubQ, ea addt'l 20sq cm 3 or part thereof #2 Right Lateral Lower Extremity CLUSTER -Time 08:54 -Correct Patient Yes -Correct Side, Site, Position Yes -Correct Procedure Yes -Procedure Performed Yes -Type of Procedure Debridement -Clinical Debridement Subcutaneous -Tissue Removed Subcutaneous -Post Debridement (cm) - Length 5 -Post Debridement (cm) - Width 6.5 -Post Debridement (cm) - Depth 0.1 -Total Square (Post) (cm) 32.5 -Area of Debridement (cm) - Length 5 -Area of Debridement (cm) - Width 6.5 -Total Square (Area) (cm) 32.5 -Tunneling No -Undermining/Tunneling No -Circular Undermining No -Wound/Ulcer Outcome Not Healed -Ulcer Cleansing Rinsed/ Irrigated with Saline -Foul Odor after Cleansing No -Bioengineered Tissue No -Bleeding Controlled with Pressure -Treatment Response Procedure Tolerated Well -Debridement - Subq, 1st 20sq cm No Pain Scale: 0-10 Numeric Is Patient Pain Free? Yes WC - Nurse 3 - General Ulcer D/C NN Start: 05/15/25 08:06 Freq: Status: Active Protocol: Activity Type Activity Date Activity User E-sign Co-sign Detail Recorded Client Recorded Date Recorded By Document 05/15/25 09:28 ML [id number] 05/15/25 09:30 ML 05/15/25 09:28 Wound Care Center Nurse 3 #3- L LAT LE BLISTER AREA -Ulcer Cleansing Rinsed/ Irrigated with Saline -Primary Dressing Applied Other -Other Dressing XEROFORM -Primary Dressing Covered/Secured with Dry Gauze & Roll Gauze, Secured with Tape #2 Right Lateral Lower Extremity CLUSTER -Ulcer Cleansing Rinsed/ Irrigated with Saline -Primary Dressing Applied Other -Other Dressing XEROFORM -Primary Dressing Covered/Secured with Dry Gauze & Roll Gauze, Secured with Tape BLE -Tubular Bandage Single Layer -Size of Tubigrip Used Size E -Size E ($) 1 Pain Scale: 0-10 Numeric Is Patient Pain Free? Yes
--- NOTE | 2025-05-15 11:30 | PCM.WC.HP ---
History of Present Illness Date of Service: 05/15/25 History of Wound: This is a 84-year-old white female with a complex medical history presenting for follow-up on her lower leg edema and drainage. She recently was not hospitalized on 527 for dyspnea and was found to have pleural effusion during this admission she was treated with Lasix but treatment was halted because she went into renal failure she also has a history of atrial fibs and heart failure and in a sensitive situation with the fluid overload and the kidney failure her creatinine went up to 4 but now is back to normal at her baseline of 1.2 she was then discharged on April 27 but was readmitted the same day to significant dyspnea and explosive bloody diarrhea. She reports that her blood pressure dropped significantly prompting a call to emergency services. During the second admission she underwent a colonoscopy and was found to have a duodenal ulcer. She has had this cauterized twice already. She received a blood transfusion and fluids during this time also. She was back in the emergency room for yesterday for her blood pressure to be at systolic 80 or 90 she was also taken off her Cardizem lisinopril and metoprolol and metolazone 5 mg. She is anemic and also has a noted tremor. She is receiving home health care twice a week she reports a developing large blister on her left lateral leg which was wrapped by the visiting nurse she also reports feeling cold and shaky and worsening symptoms over the past 3 weeks she has been sleeping in a chair due to respiratory issues has not been elevating her legs. Kaitlin has a history of venous insufficiency and has been wearing support hose but has not been using them recently due to the concerns about fluid retention. She also has a history of diabetes and taking Ozempic she denies taking NSAIDs such as Motrin Aleve or ibuprofen. Her last A1c was in the sixes. [facility] Medical History Chronic anticoagulation Diabetes Kidney disease Non-smoker Venous (peripheral) insufficiency Atrial fibrillation CHF (congestive heart failure) Venous stasis ulcer Hyperpigmentation of skin Lipodermatosclerosis of both lower extremities Right leg swelling Left leg swelling Varicose veins of lower extremity with inflammation, 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 Chronic venous insufficiency Generalized osteoarthrosis History of right breast cancer Cardiomegaly Home Medications Medication Instructions Recorded Last Taken Type gabapentin 300 mg capsule 300 mg PO QHS Neuropathy 09/30/17 04/15/25 History (Neurontin) levothyroxine 100 mcg tablet 100 mcg PO DAILY thyroid 09/30/17 04/16/25 History lisinopril 40 mg tablet 40 mg PO DAILY blood pressure 09/30/17 04/15/25 History Held on 05/08/25. Instructions: Hold until your blood pressure is better pentoxifylline 400 mg 1 tab PO TID circulation 09/30/17 04/16/25 History tablet,extended release Held on 05/03/25. Instructions: Resume on 05/07/25. acetaminophen 500 mg tablet 1,000 mg PO QHS PRN pain 01/08/25 Unknown History (Acetaminophen Extra Strength) cetirizine 10 mg tablet (24Hour 10 mg PO DAILY PRN allergy symptoms 01/08/25 Unknown History Allergy) diosmin complex no.1 630 mg tablet 1 tab PO DAILY 01/08/25 04/15/25 History (Vasculera) hplpinnsjqji-xbigabfy-opjdkg 1 tab PO DAILY vitamin 01/08/25 04/16/25 History tablet (A Thru Z High Potency tablet) simvastatin 20 mg tablet 20 mg PO QHS cholesterol 01/08/25 04/15/25 History apixaban 5 mg tablet (Eliquis) 5 mg PO BID blood thinner 90 days 01/23/25 04/16/25 Rx Held on 05/03/25. #180 tabs Instructions: Resume on 05/07/25. diltiazem HCl 240 mg 240 mg PO DAILY heart rate 3 01/23/25 04/16/25 Rx capsule,extended release 24 hr months #90 caps (Cardize CD) Held on 05/08/25. Instructions: Hold until you are blood pressure is better biotin 5,000 mcg sublingual tablet 5,000 mcg sublingual DAILY 04/16/25 04/15/25 History Held on 05/15/25. supplement Instructions: Ordered semaglutide 0.25 mg or 0.5 mg (2 0.5 mg subcut QWEEK diabetes 04/16/25 Unknown History mg/1.5 mL) subcutaneous pen injector (Ozempic) Held on 05/15/25. Instructions: Order Completed amiodarone 200 mg tablet 200 mg PO BID #60 tabs 04/26/25 Unknown Rx guaifenesin 600 mg tablet, 600 mg PO BID #20 tabs 04/26/25 Unknown Rx extended release 12 hr (Mucinex) metolazone 5 mg tablet 5 mg PO DAILY #30 tabs 04/26/25 Unknown Rx Held on 05/08/25. Instructions: Hold until your blood pressure is better pantoprazole 40 mg tablet,delayed 40 mg PO BID #60 tabs 05/03/25 Unknown Rx release (Protonix) sucralfate 1 gram tablet 1 g PO TIDAC #90 tabs 05/03/25 Unknown Rx empagliflozin 10 mg tablet 10 mg PO DAILY 05/15/25 Unknown History (Jardiance) metoprolol tartrate 50 mg tablet 25 mg PO BID blood pressure 05/15/25 Unknown History Held on 05/08/25. Instructions: Hold until your blood pressure is better Allergy/AdvReac Type Severity Reaction Status Date / Time enoxaparin (From Lovenox) Allergy Unknown Verified 05/15/25 08:34 oxycodone Allergy Unknown Verified 05/15/25 08:34 Penicillins (PCN) Allergy Unknown Verified 05/15/25 08:34 Family History Father Heart disease Hypertension Heart failure Mother Kidney disease Heart disease Cancer no significant family history Surgical History History of lumpectomy of right breast History of lumbar laminectomy History of total replacement of both hip joints History of total bilateral knee replacement (TKR) Social History household members: spouse Smoking Status: Never smoker alcohol intake: never substance use type: does not use ROS Constitutional Constitutional: Reports systems reviewed and no addt'l complaints, except as documented Eyes Eyes: Reports systems reviewed and no addt'l complaints, except as documented Cardiovascular Cardiovascular: Reports systems reviewed and no addt'l complaints, except as documented Respiratory/Chest Respiratory/Chest: Reports systems reviewed and no addt'l complaints, except as documented Gastrointestinal Gastrointestinal: Reports systems reviewed and no addt'l complaints, except as documented Genitourinary Genitourinary: Reports systems reviewed and no addt'l complaints, except as documented Integumentary Integumentary: Reports wounds and other Details: Large bulbous blister on left lateral lower leg. Severe edema bilateral lower legs with seepage and skin breakdown. Neurologic Neurologic: Reports systems reviewed and no addt'l complaints, except as documented Psychiatric Psychiatric: Reports systems reviewed and no addt'l complaints, except as documented Endocrine Endocrinology: Reports systems reviewed and no addt'l complaints, except as documented Hematologic/Lymphatic Hematologic/Lymphatic: Reports systems reviewed and no addt'l complaints, except as documented Allergic/Immunologic Allergic/Immunologic: Reports systems reviewed and no addt'l complaints, except as documented Vital Signs Vital Signs Vital Signs: 05/15/25 08:06 Temperature 97.7 F L Temperature Source Temporal Pulse Rate 108 H Respiratory Rate 18 Blood Pressure 106/58 L Blood Pressure Mean 74 Blood Pressure Source Monitor Oxygen Flow Rate (L/min) 2 Weight Weight: 1921 lb 0.819 oz Body Mass Index (BMI) 362.9 Physical Exam Const oriented x3 General Appearance: cooperative Exam Limitations: no limitations HEENT normocephalic Head and Scalp: normal to inspection Face and Sinus: normal facial exam Nose: external nose normal External Ear: external ears normal Eyes General Eye: normal appearance of both eyes Neck General: normal visual inspection Resp normal respiratory effort Effort and Inspection: able to speak in complete sentences Auscultation: clear to auscultation bilaterally Cardio no murmurs Rate: other Other Details: Irregular Rhythm: abnormal rhythm Heart Sounds: other Other Details: Atrial fibrillation GI soft to palpation Palpation: soft and no hepatosplenomegaly Extremity General Extremity: normal exam except as noted and edema bilateral Skin Rashes: rashes noted Wounds: wounds noted Wound Narrative: Open areas bilateral lower legs from her PAD and venous insufficiency both legs. Neuro oriented x3 Psych Appearance: grossly normal Speech: normal speech Thought Content: normal thought content Judgement: judgement good Debridement Note Debridement Note Wound debrided: Left lower leg venous ulcer Type of Debridement: Excisional debridement Anesthesia Used: 5% Lidocaine Gel Depth: Down to and including healthy tissue and in the subcutaneous layer Percentage of wound debrided: 100 Instrument Used: 5mm curette Tissue Removed: Fibrin and devitalized tissue Severity: Fat Layer Exposed Bleeding Controlled with: Compression and gauze Patient tolerated procedure: Patient tolerated procedure well Post-Debridement Measurements and Additional Note: Post-Debridement Measurements/Treatment WC - Nurse 1 - General Ulcer Assessment Start: 05/15/25 08:06 Freq: Status: Active Protocol: [email or web address].[email or web address] Activity Type Activity Date Activity User E-sign Co-sign Detail Recorded Client Recorded Date Recorded By Document 05/15/25 08:06 ALBINA [id number] 05/15/25 08:32 DL 05/15/25 08:06 WC - Today's Visit Information Type of service Initial Visit Arrival Mode Wheelchair Transfer Assistance Manual Transfer Assist (Other) x2 Patient Identification Verified (Name & Yes ) Patient Requires Transmission-Based No Precautions Height and Weight Height 5 ft 1 in Weight 1921 lb 0.819 oz Weight in Pounds 1921.1 lbs Body Mass Index (BMI) 362.9 BMI Classification Obese Vital Signs Temperature (97.8 F-99.1 F) 97.7 F L Temperature Source Temporal Pulse Rate (60-100) 108 H Pulse Location Monitor Respiratory Rate (12-18) 18 Respiratory rate source Observation O2 L/MIN 2 Blood Pressure (90/60-120/80) 106/58 L Blood Pressure Mean 74 Source Monitor Pain Scale: 0-10 Numeric Is Patient Pain Free? Yes Lower Extremity Assessment/ Foot Assessment/ Toe Nail Assessment Left -Posterior Tibial Palpable No -Dorsalis Pedis Palpable No -Dorsalis Pedis Doppler Monophasic -Extremity Color Hemosiderin -Hair Growth on Legs No -Hair Growth on Toes No -Temperature of Extremity Warm -Capillary Refill Greater than 3 Seconds -Dependent Rubor No -Blanched when Elevated No -Lipodermatosclerosis No -Other Deformity No -Prior Foot Ulcer No -Charcot Joint No -Prior Amputation No -Thick No -Discolored No -Deformed No -Improper Length & Hygeine No Right -Posterior Tibial Palpable No -Posterior Tibial Doppler Monophasic -Dorsalis Pedis Palpable No -Dorsalis Pedis Doppler Monophasic -Extremity Color Hemosiderin -Hair Growth on Legs No -Hair Growth on Toes No -Temperature of Extremity Warm -Capillary Refill Less than 3 Seconds -Dependent Rubor No -Blanched when Elevated No -Lipodermatosclerosis No -Other Deformity No -Prior Foot Ulcer No -Charcot Joint No -Prior Amputation No -Thick No -Discolored No -Deformed No -Improper Length & Hygeine No Neuropathy Assessment Feet - Top Side and Bottom <Entered> (a) Communication Assessment Preferred language Polish Able to Read Yes Able to Write Yes Right Hearing Abillity Use of Hearing Aid Left Hearing Abillity Use of Hearing Aid Visual Assistive Devices Glasses Teaching Assessment Preferences Verbal,Written, Demonstration Barriers to Learning None Readiness To Learn Good Willingness to Engage in Self Management Med Activies Readiness to Engage in Self Management Med Activities Anxiety Level Calm Cooperation Cooperative Perception Coherent Interest in Health Problem Asks Questions Education Importance Acknowledges Need Does Patient Smoke tobacco or other No substances Smoking Status Never smoker Is Patient Diabetic Yes (a) 1 - + WC - Nurse 1 - General Ulcer Measurement Start: 05/15/25 08:06 Freq: Status: Active Protocol: Activity Type Activity Date Activity User E-sign Co-sign Detail Recorded Client Recorded Date Recorded By Document 05/15/25 08:06 DL [id number] 05/15/25 08:32 DL 05/15/25 08:06 Wound Center Nurse 1 #2 Right Lateral Lower Extremity CLUSTER -Current Size (cm) - Length 2 -Current Size (cm) - Width 1.8 -Current Size (cm) - Depth 0.1 -Total Square Cm 3.6 -Photo Taken Yes -Exudate Amt Medium -Exudate Type Serosanguineous -Wound Margin Distinct, Outline Attached -Granulation Amt Large (67-100%) -Granulation Quality Roma -Necrosis Amt Small (1-33%) -Necrotic Tissue Type Adherent Slough -Structure Exposed N/A -Texture (Deborah-wound Skin Appearance) Localized Edema ,Scarring -Moisture (Deborah-wound Skin Appearance) Weeping -Color (Deborah-wound Skin Appearance) Hemosiderin Staining -Temperature (Deborah-wound Skin No Abnormality Appearance) (Pt Warm) -Ulcer Cleansing Soap and Water -Foul Odor after Cleansing No -Anesthetic Used 5% Lidocaine Gel Right Calf (cm) 42 Right Ankle (cm) 22.7 Left Calf (cm) 44.5 Left Ankle (cm) 25 WC - Nurse 2 - General Ulcer CM Notes Start: 05/15/25 08:06 Freq: Status: Active Protocol: Activity Type Activity Date Activity User E-sign Co-sign Detail Recorded Client Recorded Date Recorded By Document 05/15/25 08:53 BMF [id number] 05/15/25 09:12 BMF 05/15/25 08:53 Wound Center Nurse 2 #3- L LAT LE BLISTER AREA -Time 08:56 -Correct Patient Yes -Correct Side, Site, Position Yes -Correct Procedure Yes -Procedure Performed Yes -Type of Procedure Debridement -Clinical Debridement Subcutaneous -Tissue Removed Subcutaneous -Post Debridement (cm) - Length 4.5 -Post Debridement (cm) - Width 7.4 -Post Debridement (cm) - Depth 0.2 -Total Square (Post) (cm) 33.30 -Area of Debridement (cm) - Length 4.5 -Area of Debridement (cm) - Width 7.4 -Total Square (Area) (cm) 33.30 -Tunneling No -Undermining/Tunneling No -Circular Undermining No -Wound/Ulcer Outcome Not Healed -Ulcer Cleansing Rinsed/ Irrigated with Saline -Foul Odor after Cleansing No -Bioengineered Tissue No -Bleeding Controlled with Pressure -Treatment Response Procedure Tolerated Well -Debridement - Subq, 1st 20sq cm Yes -Debridement, SubQ, ea addt'l 20sq cm 3 or part thereof #2 Right Lateral Lower Extremity CLUSTER -Time 08:54 -Correct Patient Yes -Correct Side, Site, Position Yes -Correct Procedure Yes -Procedure Performed Yes -Type of Procedure Debridement -Clinical Debridement Subcutaneous -Tissue Removed Subcutaneous -Post Debridement (cm) - Length 5 -Post Debridement (cm) - Width 6.5 -Post Debridement (cm) - Depth 0.1 -Total Square (Post) (cm) 32.5 -Area of Debridement (cm) - Length 5 -Area of Debridement (cm) - Width 6.5 -Total Square (Area) (cm) 32.5 -Tunneling No -Undermining/Tunneling No -Circular Undermining No -Wound/Ulcer Outcome Not Healed -Ulcer Cleansing Rinsed/ Irrigated with Saline -Foul Odor after Cleansing No -Bioengineered Tissue No -Bleeding Controlled with Pressure -Treatment Response Procedure Tolerated Well -Debridement - Subq, 1st 20sq cm No Pain Scale: 0-10 Numeric Is Patient Pain Free? Yes WC - Nurse 3 - General Ulcer D/C NN Start: 05/15/25 08:06 Freq: Status: Active Protocol: Activity Type Activity Date Activity User E-sign Co-sign Detail Recorded Client Recorded Date Recorded By Document 05/15/25 09:28 ML [id number] 05/15/25 09:30 ML 05/15/25 09:28 Wound Care Center Nurse 3 #3- L LAT LE BLISTER AREA -Ulcer Cleansing Rinsed/ Irrigated with Saline -Primary Dressing Applied Other -Other Dressing XEROFORM -Primary Dressing Covered/Secured with Dry Gauze & Roll Gauze, Secured with Tape #2 Right Lateral Lower Extremity CLUSTER -Ulcer Cleansing Rinsed/ Irrigated with Saline -Primary Dressing Applied Other -Other Dressing XEROFORM -Primary Dressing Covered/Secured with Dry Gauze & Roll Gauze, Secured with Tape BLE -Tubular Bandage Single Layer -Size of Tubigrip Used Size E -Size E ($) 1 Pain Scale: 0-10 Numeric Is Patient Pain Free? Yes Additional Wound Wound debrided: Right lower leg venous insufficiency Type of Debridement: Excisional debridement Depth: Down to and including healthy tissue and in the subcutaneous layer Percentage of wound debrided: 100 Instrument Used: 5mm curette Tissue Removed: Fibrin and devitalized tissue Severity: Fat Layer Exposed Amount of bleeding with debridement: None Bleeding Controlled with: Compression and gauze Patient tolerated procedure: Patient tolerated procedure well Assessment/Plan Assessment/Plan (1) Atrial fibrillation: CODE(S): I48.91 - Unspecified atrial fibrillation QUALIFIERS: Atrial fibrillation type: unspecified Qualified Code(s): I48.91 - Unspecified atrial fibrillation (2) Lymphedema: CODE(S): I89.0 - Lymphedema, not elsewhere classified (3) PAD (peripheral artery disease): CODE(S): I73.9 - Peripheral vascular disease, unspecified (4) 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: CODE(S): I83.029 - Varicose veins of left lower extremity with ulcer of unspecified site PLAN: Wash leg with Hibiclens or antibacterial soap and water pat dry and apply Xeroform to open wound areas cover with ABDs and Olu and double layer Tubigrip's every day (5) Venous ulcer of right lower extremity with varicose veins: CODE(S): I83.019 - Varicose veins of right lower extremity with ulcer of unspecified site; L97.919 - Non-pressure chronic ulcer of unspecified part of right lower leg with unspecified severity PLAN: Wash leg with antibacterial soap and water or Hibiclens pat dry and apply Xeroform to all open areas and cover with ABD pads and Olu. And applied double layer Tubigrip every day (6) Type 2 diabetes mellitus: CODE(S): E11.9 - Type 2 diabetes mellitus without complications QUALIFIERS: Diabetes mellitus complication status: with unspecified complications Diabetes mellitus nursing home insulin use: unspecified nursing home insulin use status Qualified Code(s): E11.8 - Type 2 diabetes mellitus with unspecified complications PLAN: Continue to monitor and control blood sugars
--- NOTE | 2025-05-16 09:48 | WC ---
PHOTO 05/15/25 RIGHT LE LAT
--- NOTE | 2025-05-16 09:55 | WC ---
PHOTO 05/15/25 LLE BLISTER
--- NOTE | 2025-05-17 14:15 | WC ---
called pt to inform her that Ann was sending in a antibiotic script of Cefpodoxime - pt requesting [facility] in [place]. Medication was called Cefpodoxime 200mg 1tab po BID for 14days. no refills
== END 2025-05-20 23:59 | disposition home or self-care (01) ==
LOC: WC 07:59
PROVIDERS: PCP Internal Medicine; Referring Provider Internal Medicine; Visit Provider Nurse Practitioner
DX: I83.019 Varicose veins of right lower extremity with ulcer of unspecified site (principal); L97.912 Non-pressure chronic ulcer of unspecified part of right lower leg with fat layer exposed; I83.029 Varicose veins of left lower extremity with ulcer of unspecified site; L97.922 Non-pressure chronic ulcer of unspecified part of left lower leg with fat layer exposed; I50.9 Heart failure, unspecified; I48.91 Unspecified atrial fibrillation; E11.51 Type 2 diabetes mellitus with diabetic peripheral angiopathy without gangrene; I89.0 Lymphedema, not elsewhere classified; I87.2 Venous insufficiency (chronic) (peripheral); R60.0 Localized edema; Z79.84 Long term (current) use of oral hypoglycemic drugs; Z79.85 Long-term (current) use of injectable non-insulin antidiabetic drugs; Z79.890 Hormone replacement therapy; Z79.899 Other long term (current) drug therapy
CPT/HCPCS: 11042; 11045; 87070; 87075; 87077; 87186; 87205; 99214; G0463

== ENCOUNTER 2025-06-05 09:21 | Outpatient (RCR) | payer MEDICARE, SELFPAY ==
[2025-06-05 09:32] VITALS: BP 118/83; PULSE 94; RESP 16; TEMP 36.3
--- NOTE | 2025-06-05 10:32 | PN.PCM_ITS ---
History of Present Illness Date of Service: 06/05/25 Chief Complaint: Nonhealing venous ulcer of left lower extremity near the left lateral malleolus History of Wound: This is a 84-year-old white female with a complex medical history presenting for follow-up on her lower leg edema and drainage. She re cently was not hospitalized on 527 for dyspnea and was found to have pleural effusion during this admission she was treated with Lasix but treatment was halted because she went into renal failure she also has a history of atrial fibs and heart failure and in a sensitive situation with the fluid overload and the kidney failure her creatinine went up to 4 but now is back to normal at her baseline of 1.2 she was then discharged on April 27 but was readmitted the same day to significant dyspnea and explosive bloody diarrhea. She reports that her blood pressure dropped significantly prompting a call to emergency services. During the second admission she underwent a colonoscopy and was found to have a duodenal ulcer. She has had this cauterized twice already. She received a blood transfusion and fluids during this time also. She was back in the emergency room for yesterday for her blood pressure to be at systolic 80 or 90 she was also taken off her Cardizem lisinopril and metoprolol and metolazone 5 mg. She is anemic and also has a noted tremor. She is receiving home health care twice a week she reports a developing large blister on her left lateral leg which was wrapped by the visiting nurse she also reports feeling cold and shaky and worsening symptoms over the past 3 weeks she has been sleeping in a chair due to respiratory issues has not been elevating her legs. Kaitlin has a history of venous insufficiency and has been wearing support hose but has not been using them recently due to the concerns about fluid retention. She also has a history of diabetes and taking Ozempic she denies taking NSAIDs such as Motrin Aleve or ibuprofen. Her last A1c was in the sixes. Progress of Wound: Bilateral lower legs are closed and healed patient will be discharged from the wound center Subjective Subjective Patient had been admitted to the hospital after her cardiology visit and was in the hospital for like 3 weeks and just basically got out they were doing the dressing changes for her and she basically healed well in the hospital. Objective Data Objective Data No sign of infection healing well dried old skin I told her that we will order some have her use amLactin cream to clear that off she will use it once or twice a day and she can follow-up as needed Vital Signs: Vital Signs Temp Pulse Resp BP 97.3 F L 94 16 118/83 H 06/05/25 09:32 06/05/25 09:32 06/05/25 09:32 06/05/25 09:32 Weight: 162 lb 2.382 oz Physical Exam Const oriented x3 General Appearance: cooperative Exam Limitations: no limitations HEENT normocephalic Head and Scalp: normal to inspection Face and Sinus: normal facial exam Nose: external nose normal External Ear: external ears normal Eyes General Eye: normal appearance of both eyes Neck General: normal visual inspection Resp normal respiratory effort Effort and Inspection: able to speak in complete sentences Auscultation: clear to auscultation bilaterally Cardio no murmurs Rate: other Other Details: Irregular Rhythm: abnormal rhythm Heart Sounds: other Other Details: Atrial fibrillation GI soft to palpation Palpation: soft and no hepatosplenomegaly Extremity General Extremity: normal exam except as noted and edema bilateral Skin Rashes: rashes noted Wounds: wounds noted Wound Narrative: Open areas bilateral lower legs from her PAD and venous insufficiency both legs. Neuro oriented x3 Psych Appearance: grossly normal Speech: normal speech Thought Content: normal thought content Judgement: judgement good Debridement Note Debridement Note No debridement was completed: No debridement was completed today Post-Debridement Measurements and Additional Note: Post-Debridement Measurements/Treatment - Nurse 1 - General Ulcer Assessment Start: 06/05/25 09:32 Freq: Status: Active Protocol: TOREY.PRIETO Activity Type Activity Date Activity User E-sign Co-sign Detail Recorded Client Recorded Date Recorded By Document 06/05/25 09:32 DL [id number] 06/05/25 09:42 DL 06/05/25 09:32 - Today's Visit Information Type of service Follow-up Visit (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 ) Arrival Mode Ambulatory, Walker Transfer Assistance None Patient Identification Verified (Name & Yes ) Patient Requires Transmission-Based No Precautions Height and Weight Weight 162 lb 2.382 oz Weight in Pounds 162.1 lbs Weight Measurement Method Estimated by Patient Vital Signs Temperature (97.8 F-99.1 F) 97.3 F L Temperature Source Temporal Pulse Rate (60-100) 94 Pulse Location Monitor Respiratory Rate (12-18) 16 Respiratory rate source Observation Blood Pressure (90/60-120/80) 118/83 H Blood Pressure Mean (mm Hg) 94 Source Monitor History Since Last Visit- (Skip if this is Patient's initial visit) Have you changed medications since your No last visit? Any new allergies or adverse reactions No Had a fall/change in ADL's that may No increase risk of falls Signs or symptoms of abuse and/or No neglect since last visit Have you been in the hospital since your Yes last visit? Has dressing in place as prescribed Yes Has compression in place as prescribed Yes Has offloadiing in place as prescribed N/A Pain Scale: 0-10 Numeric Is Patient Pain Free? Yes WC - Nurse 1 - General Ulcer Measurement Start: 06/05/25 09:32 Freq: Status: Active Protocol: Activity Type Activity Date Activity User E-sign Co-sign Detail Recorded Client Recorded Date Recorded By Document 06/05/25 09:32 DL [id number] 06/05/25 09:42 DL 06/05/25 09:32 Wound Center Nurse 1 #3- L LAT LE BLISTER AREA -Current Size (cm) - Length 0 -Current Size (cm) - Width 0 -Current Size (cm) - Depth 0 -Total Square Cm 0 -Photo Taken Yes -Exudate Amt None Present -Wound Margin Flat & Intact -Granulation Amt Large (67-100%) -Granulation Quality Pale -Necrosis Amt None Present (0 %) -Structure Exposed N/A -Texture (Deborah-wound Skin Appearance) Scarring -Moisture (Deborah-wound Skin Appearance) No Abnormality, Dry/Scaly -Color (Deborah-wound Skin Appearance) Hemosiderin Staining -Temperature (Deborah-wound Skin No Abnormality Appearance) (Pt Warm) -Ulcer Cleansing Soap and Water -Foul Odor after Cleansing No #2 Right Lateral Lower Extremity CLUSTER -Current Size (cm) - Length 0 -Current Size (cm) - Width 0 -Current Size (cm) - Depth 0 -Total Square Cm 0 -Photo Taken Yes -Exudate Amt None Present -Wound Margin Flat & Intact -Granulation Amt Large (67-100%) -Granulation Quality Pale -Necrosis Amt None Present (0 %) -Structure Exposed N/A -Texture (Deborah-wound Skin Appearance) Scarring -Moisture (Deborah-wound Skin Appearance) No Abnormality -Color (Deborah-wound Skin Appearance) Hemosiderin Staining -Temperature (Deborah-wound Skin No Abnormality Appearance) (Pt Warm) -Ulcer Cleansing Soap and Water -Foul Odor after Cleansing No Right Calf (cm) 34 Right Ankle (cm) 19.6 Left Calf (cm) 36 Left Ankle (cm) 23.3 - Nurse 2 - General Ulcer CM Notes Start: 06/05/25 09:32 Freq: Status: Active Protocol: Activity Type Activity Date Activity User E-sign Co-sign Detail Recorded Client Recorded Date Recorded By Document 06/05/25 10:05 [facility] [id number] 06/05/25 10:07 [facility] 06/05/25 10:05 Wound Center Nurse 2 #3- L LAT LE BLISTER AREA -Time 10:06 -Procedure Performed No -Post Debridement (cm) - Length 0 -Post Debridement (cm) - Width 0 -Post Debridement (cm) - Depth 0 -Total Square (Post) (cm) 0 -Area of Debridement (cm) - Length 0 -Area of Debridement (cm) - Width 0 -Total Square (Area) (cm) 0 -Wound/Ulcer Outcome Healed- Epithelialized #2 Right Lateral Lower Extremity CLUSTER -Time 10:06 -Procedure Performed No -Post Debridement (cm) - Length 0 -Post Debridement (cm) - Width 0 -Post Debridement (cm) - Depth 0 -Total Square (Post) (cm) 0 -Area of Debridement (cm) - Length 0 -Area of Debridement (cm) - Width 0 -Total Square (Area) (cm) 0 -Wound/Ulcer Outcome Healed- Epithelialized Pain Scale: 0-10 Numeric Is Patient Pain Free? Yes - Nurse 3 - General Ulcer D/C NN Start: 06/05/25 09:32 Freq: Status: Active Protocol: Activity Type Activity Date Activity User E-sign Co-sign Detail Recorded Client Recorded Date Recorded By Document 06/05/25 10:10 [facility] [id number] 06/05/25 10:11 [facility] 06/05/25 10:10 Wound Care Center Nurse 3 BLE -Other pt will apply own stockings when gets home Pain Scale: 0-10 Numeric Is Patient Pain Free? Yes - Visit Discharge Discharge Condition Stable Ambulatory Status Ambulatory, Walker Notes: pt healed. Assessment/Plan Assessment/Plan (1) Atrial fibrillation: CODE(S): I48.91 - Unspecified atrial fibrillation QUALIFIERS: Atrial fibrillation type: unspecified Qualified Code(s): I48.91 - Unspecified atrial fibrillation (2) Lymphedema: CODE(S): I89.0 - Lymphedema, not elsewhere classified (3) PAD (peripheral artery disease): CODE(S): I73.9 - Peripheral vascular disease, unspecified (4) 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: CODE(S): I83.029 - Varicose veins of left lower extremity with ulcer of unspecified site PLAN: All vessels have healed patient will be discharged from the wound center and she can follow-up as needed Patient was encouraged to use amLactin cream to her legs 2-3 times a day to get rid of all the old skin. 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
== END 2025-06-20 14:56 | disposition home or self-care (01) ==
LOC: WC 09:21
PROVIDERS: PCP Internal Medicine; Referring Provider Internal Medicine; Visit Provider Nurse Practitioner
DX: Z09 Encounter for follow-up examination after completed treatment for conditions other than malignant neoplasm (principal); I48.91 Unspecified atrial fibrillation; E11.9 Type 2 diabetes mellitus without complications; R60.0 Localized edema; I89.0 Lymphedema, not elsewhere classified; I73.9 Peripheral vascular disease, unspecified
CPT/HCPCS: 99212; G0463

== ENCOUNTER 2025-07-20 12:15 | Emergency (ER) | payer MEDICARE, SELFPAY ==
[2025-07-20 12:15] VITALS: BP 151/54; PULSE 46; RESP 18; TEMP 36.8; O2SAT 98; BMI 32.0
--- NOTE | 2025-07-20 12:53 | EKG12_ITS ---
Test Reason : ABN LABS Blood Pressure : */* mmHG Vent. Rate : 40 BPM Atrial Rate : * BPM P-R Int : * ms QRS Dur : 158 ms QT Int : 534 ms P-R-T Axes : * -88 -5 degrees QTcB Int : 435 ms Critical Test Result: Low HR , Junctional rhythm Left axis deviation Right bundle branch block Abnormal ECG When compared with ECG of 08-May-2025 13:22, Idioventricular rhythm has replaced Atrial fibrillation Vent. rate has decreased by 71 bpm Confirmed by Chris Fields ([id number]), commercial production editor TATI LOPEZ ([id number]) on 07/23/2025 10:31:27 AM Referred By: Confirmed By: Chris Fields
--- NOTE | 2025-07-20 12:54 | EX.ED.DYSGE1 ---
HPI History of Present Illness Chief Complaint: Abn Labs Narrative Narrative: 84-year-old female past medical history of chronic kidney disease, hypertension, presents with abnormal laboratory work that she had drawn as an outpatient yesterday. She states she saw her primary care provider. She usually takes amiodarone and metoprolol. She states that today was supposed to be the first day that she does not take her amiodarone. She takes her blood pressure in the morning, and if her systolic blood pressure is below 100 she does not take that half tablet of metoprolol which she figures is 25 mg. She noticed that yesterday she had a low heart rate in the 40s as well. She denies any chest pain or shortness of breath but states she might have felt shaky over the last 24 hours. She received a call from the on-call primary care provider who told her that she needed to come to the emergency department immediately because her potassium was elevated 6.6. No recent fevers or chills, nausea, vomiting, diarrhea, or any other symptoms. [facility] Medical History Chronic anticoagulation Diabetes Kidney disease Non-smoker Venous (peripheral) insufficiency Atrial fibrillation CHF (congestive heart failure) Venous stasis ulcer Hyperpigmentation of skin Lipodermatosclerosis of both lower extremities Right leg swelling Left leg swelling Varicose veins of lower extremity with inflammation, 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 Chronic venous insufficiency Generalized osteoarthrosis History of right breast cancer Cardiomegaly Home Medications ?Medication ?Instructions ?Recorded ?Last Taken ?Type gabapentin 300 mg capsule 300 mg PO QHS Neuropathy 09/30/17 04/15/25 History (Neurontin) levothyroxine 100 mcg tablet 100 mcg PO DAILY thyroid 09/30/17 04/16/25 History acetaminophen 500 mg tablet 1,000 mg PO QHS PRN pain 01/08/25 Unknown History (Acetaminophen Extra Strength) cetirizine 10 mg tablet (24Hour 10 mg PO DAILY PRN allergy symptoms 01/08/25 Unknown History Allergy) diosmin complex no.1 630 mg tablet 1 tab PO DAILY 01/08/25 04/15/25 History (Vasculera) wleucioglgwb-kwietgrd-fmjjzp 1 tab PO DAILY vitamin 01/08/25 04/16/25 History tablet (A Thru Z High Potency tablet) simvastatin 20 mg tablet 20 mg PO QHS cholesterol 01/08/25 04/15/25 History pantoprazole 40 mg tablet,delayed 40 mg PO BID #60 tabs 05/03/25 Unknown Rx release (Protonix) sucralfate 1 gram tablet 1 g PO TIDAC #90 tabs 05/03/25 Unknown Rx empagliflozin 10 mg tablet 10 mg PO DAILY 05/15/25 Unknown History (Jardiance) metoprolol tartrate 50 mg tablet 25 mg PO BID blood pressure 05/15/25 Unknown History Allergy/AdvReac Type Severity Reaction Status Date / Time enoxaparin (From Lovenox) Allergy Unknown Verified 07/20/25 12:16 oxycodone Allergy Unknown Verified 07/20/25 12:16 Penicillins (PCN) Allergy Unknown Verified 07/20/25 12:16 Family History Father Heart disease Hypertension Heart failure Mother Kidney disease Heart disease Cancer Surgical History History of lumpectomy of right breast History of lumbar laminectomy History of total replacement of both hip joints History of total bilateral knee replacement (TKR) Social History household members: spouse Smoking Status: Never smoker alcohol intake: never substance use type: does not use ROS ROS ED ROS Narrative Review of systems positive for bradycardia, shakiness. Denies chest pain or shortness of breath. No exacerbating or alleviating factors. Otherwise, states is at baseline and was sent in for high potassium. EXAM Physical Exam Narrative Exam Narrative: Afebrile. Vital signs noted. Nontoxic-appearing. Cardiovascular examination reveals a bradycardia in the 40s. Lungs are clear to auscultation bilaterally. Abdomen is soft and nontender with positive bowel sounds, no guarding or rebound. Neurological examination shows her to be awake, alert, interactive. Moves all extremities. Oriented. Const Vital Signs: 07/20/25 12:15 07/20/25 12:24 07/20/25 13:15 Temperature 98.2 F Temperature Source Oral Pulse Rate 46 L 43 L Respiratory Rate 18 16 Respiratory Effort Normal Non-Labored Respiratory Pattern Normal Blood Pressure 151/54 H 125/67 H Blood Pressure Mean 86 86 Pulse Ox 98 97 Oxygen Delivery Method Room Air Room Air 07/20/25 14:00 07/20/25 15:00 07/20/25 16:00 Temperature Temperature Source Pulse Rate 45 L 39 L 46 L Respiratory Rate 14 13 15 Respiratory Effort Respiratory Pattern Blood Pressure 106/49 L 133/64 H Blood Pressure Mean 68 87 Pulse Ox 97 100 100 Oxygen Delivery Method Room Air Room Air Room Air 07/20/25 16:39 Temperature 98.2 F Temperature Source Pulse Rate 48 L Respiratory Rate 17 Respiratory Effort Respiratory Pattern Blood Pressure 144/63 H Blood Pressure Mean 90 Pulse Ox 99 Oxygen Delivery Method MDM MDM MDM Narrative Medical decision making narrative: The differential diagnosis includes but not limited to lab error versus hyperkalemia secondary to acute kidney injury/failure. She could have oversupplementation as well, however in review of her medication list, she does not supplement with potassium. EKG was obtained and interpreted by myself independently as normal sinus rhythm/bradycardia at 40 bpm. On the monitor she is in the high her 40s. I reviewed her laboratory work and she has normal white count of 6.3 with hemoglobin stable at 11.1, platelet count 218, potassium is elevated at 6.9 without hemolysis, BUN of 52 and creatinine 2.08 with glucose 113. Patient states she does not take digoxin. She was started on ED hyperkalemia protocol. She will be given Kayexalate 30 g orally as well as insulin and dextrose. I do feel that she will most likely require dialysis for this extremely elevated potassium. However, it is unavailable at this institution. In discussion with the patient and her she would like to be transferred to a [facility] facility. I did obtain a chest x-ray and I interpreted it independently. While there is a small pleural effusion there is no consolidation or pneumothorax. I reviewed the radiology report which confirms my independent interpretation. Given her bradycardia and her hyperkalemia, I do feel that she requires transfer/admission. Of note, given her bradycardia, although there are no acute ST changes, she was given calcium gluconate. I was able to discuss the patient with the psychotherapist social worker at [facility] Who wanted the patient to have Lasix 120 mg IV additionally. She has been accepted in transfer for dialysis. Disposition is transferred in stable condition. History & Record Review Discussion w/independent historian: Patient Lab Data Attestation: I reviewed the patient's lab results. Labs: Laboratory Results - last 24 hr 07/20/25 07/20/25 13:01 14:44 WBC 6.3 RBC 3.89 L Hgb 11.1 L Hct 35.2 L MCV 90.5 MCH 28.5 MCHC 31.5 L RDW Std Deviation 59.9 H RDW Coeff of Marcial 18.2 H Plt Count 218 MPV 10.8 Immature Gran % (Auto) 0.200 Neut % (Auto) 70.8 H Lymph % (Auto) 13.0 L Spink % (Auto) 11.0 H Eos % (Auto) 3.7 Baso % (Auto) 1.3 H Absolute Neuts (auto) 4.5 Absolute Lymphs (auto) 0.82 L Nucleated RBC % 0 Sodium 139 Potassium 6.9 H* Chloride 107 Carbon Dioxide 19.4 L Anion Gap 12 BUN 52 H Creatinine 2.08 H Estim Creat Clear Calc 18.56 L Est GFR (MDRD) Non-Af 23 L BUN/Creatinine Ratio 24.9 H Glucose 113 H Calcium 9.6 POC Glucose 101 Radiography Chest X-Ray - ED: Read by ED Physician, Read by Radiologist and Right Effusion (Small) Diagnostic Testing: Clinical Impression(s) from Imaging Studies Chest X-Ray 07/20/25 13:20 IMPRESSION: Small right pleural effusion with right basilar atelectasis. Cardiomegaly. Improved appearance since the prior exam. Reading Location: [id number] Management Discussion w/another healthcare provider: Sql Developer Dba (Critical care medicine at [facility].) Discharge Plan Triage Chief Complaint: Abn Labs ED Provider: Clement Walters Dx/Rx/DC Orders Clinical Impression: Acute hyperkalemia, Acute renal failure, Hypertension, History of diabetes mellitus, Bradycardia Prescriptions: No Action levothyroxine 100 MCG tablet 100 mcg PO DAILY gabapentin [Neurontin] 300 MG capsule 300 mg PO QHS simvastatin 20 mg tablet 20 mg PO QHS Patient Comments: [NO ORIGINAL SIG] Vasculera 630 mg tablet 1 tab PO DAILY A Thru Z High Potency Tablet 1 tab PO DAILY cetirizine [24Hour Allergy] 10 mg tablet 10 mg PO DAILY PRN (Reason: allergy symptoms) acetaminophen [Acetaminophen Extra Strength] 500 mg tablet 1,000 mg PO QHS PRN (Reason: pain) pantoprazole [Protonix] 40 mg tablet,delayed release (DR/EC) 40 mg PO BID Qty: 60 0RF sucralfate 1 gram Tablet 1 g PO TIDAC Qty: 90 0RF Jardiance 10 mg tablet 10 mg PO DAILY metoprolol tartrate 50 mg tablet 25 mg PO BID Rx Instructions: Hold for heart less than 50 or systolic blood pressure less than 100 mmHg. Primary Care Provider: Meena Vasquez Referrals: Meena Vasquez MD [Primary Care Provider] - Print Language: Namibian Disposition Disposition: Acute Care Hospital Discharge Location: [facility] Discharge Date/Time: 07/20/25 17:21
--- OUTSIDE RECORDS SUMMARY | 2025-07-20 12:56 | XMS RPT_ITS | CCD ---
Author Organization [facility] Care Team Providers Care Job Spotter Name Role Phone LEVI FINK Unavailable Unavailable Meena Guerra MD Primary Care Provider Meena Guerra MD Primary Care Provider Avinash Barbosa MD Unavailable Roger Reynolds MD Unavailable Meena Guerra MD Primary Care Provider Meena Guerra MD Primary Care Provider Avinash Barbosa MD Unavailable Roger Reynolds MD Unavailable [phone] Meena Guerra MD Primary Care Provider Meena Guerra MD Primary Care Provider Avinash Barbosa MD Unavailable GANTA MEENA C Primary Care Unavailable GANTA, MEENA C Referring Unavailable KELLY JEONG Attending Unavailable GANTA, MEENA C Primary Care Unavailable SIKH, AMY Attending Unavailabl e SIKH, AMY Referring Unavailabl e GANTA, MEENA C Primary Care Unavailable SIKH, AMY Attending Unavailabl e SIKH, AMY Referring Unavailabl e Rosemarie Taylor PA-C Unavailable Older ANCIENT ART CURATOR.MENTAL HEALTH CASE MANAGER, Jose Unavailable Lindsey Camara PA-C Unavailable Dr. Meena Guerra MD Primary Care Provider Julius HENDERSON, Dr. Khanna Emergency Provider Octaviano HENDERSON, Dr. Cowart Admit Provider Octaviano HENDERSON, Dr. Cowart Attending Provider Ibrahima HENDERSON, Dr. Duarte Other Provider Octaviano HENDERSON, Dr. Cowart Other Provider Ibrahima HENDERSON, Dr. Duarte Attending Provider Marge CLAY-Betsy Hwang Attending Provider Aby Tierney Attending Provider Pedro HENDERSON, Dr. Robledo Referring Provider Magdi Pedroza Attending Provider Magdi Pedroza Referring Provider Kina DA SILVA, Dr. Evans Emergency Provider Roopa DA SILVA, Dr. Mcginnis Admit Provider Roopa DA SILVA, Dr. Mcginnis Attending Provider Roopa DA SILVA, Dr. Mcginnis Referring Provider Pedro HENDERSON, Dr. Robledo Primary Care Provider Julius HENDERSON, Dr. Khanna Emergency Provider Octaviano HENDERSON, Dr. Cowart Admit Provider Octaviano HENDERSON, Dr. Cowart Attending Provider Ibrahima HENDERSON, Dr. Duarte Other Provider Octaviano HENDERSON, Dr. Cowart Other Provider Ibrahima HENDERSON, Dr. Duarte Attending Provider Betsy Arriaza Attending Provider Aby Tierney Attending Provider Pedro HENDERSON, Dr. Robledo Referring Provider Magdi Pedroza Attending Provider Ernestine Pedrozayler Referring Provider Kina DA SILVA, Dr. Evans Emergency Provider Roopa DA SILVA, Dr. Mcginnis Admit Provider Dr. Ras Blas DO Referring Provider Roopa DA SILVA, Dr. Mcginnis Other Provider Lynn HENDERSON, Dr. Fischer Attending Provider UnavailRas Hays W Primary Care Provider Unavailab cammy Mcnulty MD, Dr. Telles Other Provider Unavailabl stanislaw Akins MD, Dr. Lainez Other Provider Ghulam HENDERSON, Dr. Moore Other Provider Mario HENDERSON, Dr. Lazar Other Provider [phone] Marvin DA SILVA, Dr. Rowe Other Provider Ken HENDERSON, Dr. Soria Other Provider [phone] Jennifer DA SILVA, Dr. Cuevas Other Provider Valeria HENDERSON, Dr. Abdul Other Provider Peace DA SILVA, Dr. Villanueva Other Provider Bradley HENDERSON, Dr. Simon Other Provider Lauren HENDERSON, Dr. Mendoza Other Provider Abdoulaye HENDERSON, Dr. Reyes Other Provider Shonna HENDERSON, Dr. Hilliard Other Provider Johnny HENDERSON, Dr. Caal Other Provider Mireya HENDERSON, Dr. Taylor Other Provider [phone] Jeffrey HENDERSON, Dr. Duran Other Provider Loi HENDERSON, Dr. Talbert Other Provider Rickey HENDERSON, Dr. Hernandez Other Provider Austin HENDERSON, Dr. Chen Other Provider Asha HENDERSON, Dr. Ledezma Other Provider Dana HENDERSON, Dr. Amado Doherty Other Provider [phone] Ian HENDERSON, Dr. Shelby Other Provider Bladimir HENDERSON, Dr. Ratliff Other Provider Mimi HENDERSON, Dr. Leon Other Provider Donnie HENDERSON, Dr. Perez Other Provider Annamarie HENDERSON, Dr. Aubrey Mayers Other Provider Radha HENDERSON, Dr. Torres Other Provider Roopa DA SILVA, Dr. Mcginnis Attending Provider Mimi HENDERSON, Dr. Leon Attending Provider Lynn HENDERSON, Dr. Fischer Other Provider Unavailable Annamarie HENDERSON, Dr. Aubrey Mayers Attending Provider Marvin DA SILVA, Dr. Rowe Attending Provider [phone] Donnie HENDERSON, Dr. Perez Attending Provider Mckayla Martin PA-C Attending Provider Cammy DA SILVA, Dr. Christianson Emergency Provider [phone] Page HENDERSON, Dr. Dayana Durham Attending Provider Page HENDERSON, Dr. Dayana Durham Admit Provider John RN, Stacey Unavailable Dr. Edward Le MD Other Provider Mimi HENDERSON, Dr. Leon Attending Provider Page HENDERSON, Dr. Dayana Durham Other Provider Meena Guerra MD Primary Care Provider Unavailab cammy Still DO, Dr. Carpenter Attending Provider John RN, Stacey Unavailable Meena Guerra MD Referring Provider Unavailable Dr. Ras Levy DO Emergency Provider [phone] Pedro HENDERSON, Dr. Robledo Primary Care Provider [phone] Page HENDERSON, Dr. Dayana Durham Referring Provider Dr. Ras Levy DO Attending Provider Slater RESIN MAKER-C, Ann Attending Provider Bryon RESIN MAKER-C, Ann Other Provider John RN, Stacey Unavailable Rosaline GRACIA, Senait Unavailable Dr. Meena Guerra MD Primary Care Provider Magdi Pedroza Attending Provider Magdi Pedroza Referring Provider Dr. Meena Guerra MD Referring Provider GANTA, MEENA Primary Care Unavailable GANTA, MEENA Referring Unavailable SELF Referring Unavailable GANTA, MEENA Primary Care Unavailable GANTA, MEENA Attending Unavailable DESMOND WONG Referring Unavailable GANTA, MEENA Primary Care Unavailable KAYLA MENA Referring Unavailable KELLY FITZPATRICK Attending Unavailable GANTA, MEENA Primary Care Unavailable TESTMIRANDA CRUZ Attending Unavailable GANTA, MEENA Primary Care Unavailable GANTA, MEENA Primary Care Unavailable GANTA, MEENA Primary Care Unavailable GANTA, MEENA Referring Unavailable SELF Referring Unavailable GANTA, MEENA Primary Care Unavailable GANTA, MEENA Attending Unavailable DESMOND WONG Attending Unavailable GANTA, MEENA Primary Care Unavailable GANTA, MEENA Referring Unavailable GANTA, MEENA Primary Care Unavailable GANTA, MEENA Referring Unavailable GANTA, MEENA Primary Care Unavailable GANTA, MEENA Attending Unavailable GANTA, MEENA Primary Care Unavailable GANTA, MEENA Referring Unavailable MIRANDA ROMANO Attending Unavailable TESTMIRANDA CRUZ Referring Unavailable GANTA, MEENA Primary Care Unavailable GANTA, MEENA Attending Unavailable GANTA, MEENA Primary Care Unavailable SELF Referring Unavailable GANTA, MEENA Primary Care Unavailable GANTA, MEENA Attending Unavailable SELF Referring Unavailable GANTA, MEENA Primary Care Unavailable GANTA, MEENA Attending Unavailable GANTA, MEENA Primary Care Unavailable GANTA, MEENA Primary Care Unavailable GANTA, MEENA Referring Unavailable KAYLA MENA Attending Unavailable AGDAMAGJESSICA Referring Unavailab ROBBIE Dowling Admitting Unavailable GANTA, MEENA Primary Care Unavailable AGDAMAG, JESSICA XIONG Attending Unavailab le SELF Referring Unavailable GANTA, MEENA Primary Care Unavailable GANTA, MEENA Attending Unavailable GANTA, MEENA Primary Care Unavailable GANTA, MEENA Primary Care Unavailable GANTA, MEENA Referring Unavailable GANTA, MEENA Attending Unavailable GANTA, MEENA Primary Care Unavailable Ganta, Meena Primary Care Unavailable Demiter, Magdi Referring Unavailable Demiter, Magdi Attending Unavailable Ganta, Meena Primary Care Unavailable Ibrahima, Gerald Consulting Unavailable Octaviano, Supa Attending Unavailable Octaviano, Supa Admitting Unavailable Ganta [facility], Meena Primary Care Unavailable Jopperi, Ras Attending Unavailable White, Dayana L Admitting Unavailable White, Dayana L Consulting Unavailable Jopperi, Ras Admitting Unavailable Jopperi, Ras Consulting Unavailable Childress, Ras W Primary Care Unavailable Jopperi, Ras Referring Unavailable Amado Bailey Attending Unavailable Koki Mcnulty Consulting Unavailable Migel Akins Consulting Unavailable Oscar Parmar Consulting Unavailable Nagi Martin Consulting Unavailable Jae Wong Consulting Unavailable Yang Rogers Consulting Unavailable Dhemira Mason Consulting Unavailable Valeria, Franko Consulting Unavailable Rich Hand Consulting Unavailable Aurora Huerta Consulting Unavailable Reji Aguilar Consulting Unavailable Abdoulaye, Eric Consulting Unavailable Babak Kilpatrick Consulting Unavailable Ten Turner Consulting Unavailable Claudia Gomes Consulting UnavailRoger Machado Consulting Unavailable Nitish Monsivais Consulting Unavailable Mary Lang Consulting Unavailable Gustavo Avila Consulting Unavailable Darien Barry Consulting Unavailable Amado Cortez Consulting Unavailable Heron Sosa Consulting Unavailable Gaudencio Garrison Consulting Unavailable Edward Le Consulting Unavailable Kayla Fields Consulting Unavailable Aubrey De Luna Consulting Unavailable Melissa Garcia Consulting Unavailable Jopperi, Ras Referring Unavailable White, Dayana L Consulting Unavailable Childress, Ras W Primary Care Unavailable White, Dayana L Admitting Unavailable Tessy, Jayden Attending Unavailable Jopperi, Ras Consulting Unavailable Jopperi, Ras Attending Unavailable Ganta, Meena Primary Care Unavailable Ibrahima, Gerald Consulting Unavailable Ibrahima, Gerald Attending Unavailable Octaviano, Supa Admitting Unavailable Octaviano, Supa Consulting Unavailable Octaviano, Supa Attending Unavailable Reji Aguilar Consulting Unavailable Asha, Darien Consulting Unavailable Oscar Parmar Consulting Unavailable Jae Wong Consulting Unavailable Amado Cortez Consulting Unavailable Gustavo Avila Consulting Unavailable Mario, Nagi Consulting Unavailable Habtegebriel, Claudia Consulting Unavailab le Dand, Yang Consulting Unavailable Sosa, Heron Consulting Unavailable Gaudencio Garrison Consulting Unavailable Bradley, Aurora Consulting Unavailable Aljundi, Lamia Consulting Unavailable Lang, Mary Consulting Unavailable Abdoulaye, Eric Consulting Unavailable Irukulla, Nitish Consulting Unavailable Valeria, Franko Consulting Unavailable Dhesi, Mason Consulting Unavailable Babak Kilpatrick Consulting Unavailable Gracewood, Soleyah Consulting Unavailable Fernstrom, Rich Consulting Unavailable Tashi, Migel Consulting Unavailable Roger Murphy Consulting Unavailable Ras Blas Admitting Unavailable Ras Blas Consulting Unavailable Ras Childress Primary Care Unavailable Edward Le Attending Unavailable Roopa Ras Referring Unavailable Radha, Jayaprakas Consulting Unavailable Edward Le Consulting Unavailable Amado Bailey Consulting Unavailable Betsy Bird Attending Unavailable Aby Ortega Attending Unavailabl e Ganta OLS, Meena Referring Unavailable Ganta OLS, Meena Primary Care Unavailable Magdi Thomas Attending Unavailable Ganta, Meena Primary Care Unavailable Ganta, Meena Referring Unavailable Magdi Thomas Attending Unavailable Amado Bailey Attending Unavailable Ganta, Meena Primary Care Unavailable Ann Slater NP Attending Unavailable Ganta, Meena Referring Unavailable Aubrey De Luna Consulting Unavailable Aljundi, Lamia Consulting Unavailable Tashi, Migel Consulting Unavailable Oscar Parmar Consulting Unavailable Mario, Nagi Consulting Unavailable Jae Wong Consulting Unavailable Dand, Yang Consulting Unavailable Dhesi, Mason Consulting Unavailable Valeria, Franko Consulting Unavailable Fernstrom, Rich Consulting Unavailable Bradley, Aurora Consulting Unavailable Reji Aguilar Consulting Unavailable Abdoulaye, Eric Consulting Unavailable Babak Kilpatrick Consulting Unavailable Gracewood, Soleyah Consulting Unavailable Matildategejessica, Claudia Consulting Unavailab Roger Bejarano Consulting Unavailable Irukulla, Nitish Consulting Unavailable Lang, Mary Consulting Unavailable Austin, Edward Consulting Unavailable Darien Barry Consulting Unavailable Amado Cortez Consulting Unavailable Ian, Heron Consulting Unavailable Gaudencio Garrison Consulting Unavailable Kayla Fields Consulting Unavailable Jae Wong Attending Unavailable Kayla Fields Attending Unavailable Mckayla Vilchis Attending Unavailable Dayana Abel Attending Unavailable Ras Childress W Primary Care Unavailable Dayana Abel Referring Unavailable Ganta, Meena Primary Care Unavailable Edward Le Attending Unavailable Ganta, Meena Primary Care Unavailable Ganta OLS, Meena Referring Unavailable Kayla Fields Attending Unavailable Ganta, Meena Primary Care Unavailable Bryon RESIN MAKER, Ann Referring Unavailable Taylor Montes Attending Unavailable Aubrey De Luna Attending Unavailable Ganta OLS, Meena Primary Care Unavailable Ras Blas Attending Unavailable Ganta, Meena Primary Care Unavailable Ganta, Meena Primary Care Unavailable Bryon RESIN MAKER, Ann Attending Unavailable Ganta, Meena Referring Unavailable Demiter, Magdi Attending Unavailable Ganta OLS, Meena Primary Care Unavailable Demiter, Magdi Referring Unavailable Ganta, Meena Primary Care Unavailable Ras Levy Attending Unavailable Ganta, Meena Primary Care Unavailable Demiter, Magdi Referring Unavailable Demiter, Magdi Attending Unavailable Jae Wong Attending Unavailable Allergies Allergy Classification Reported Allergen(s) Allergy Type Date of Onset Reaction(s) Facility Enoxaparin (1 source) Enoxaparin Drug Allergy 2 Rash, Itching [facility] Opioid Agonists (2 sources) Codeine Drug Allergy 8 GI Upset, Mental Status Change, Other: See Comments [facility] Penicillins (antibiotic) (1 source) Penicillins Drug Allergy 8 Rash, Other: See Comments [facility] (20 sources) codeine; 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: [CODEINE] Drug Allergy 8 GI Upset [facility] Other [place] (20 sources) enoxaparin; 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: [ENOXAPARIN SODIUM] Drug Allergy 2 Rash, Itching [facility] Repository (20 sources) oxyCODONE; 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: [OXYCODONE] Drug Allergy 8 Other: See Comments, Mental Status Change [facility] Rep[facility] (20 sources) Penicillins; 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: [PENICILLINS] Propensity to adverse reactions to drug (disorder) 8 Other: See Comments, Rash [facility] Repository (13 sources) Penicillin G Drug Allergy 9 Rash [facility] (13 sources) Enoxaparin Drug Allergy 7 Unknown [facility] (1 source) Enoxaparin Drug Allergy 5 [facility] Rep[facility] Medications Current Medications Medication Drug Class(es) Dates Sig (Normalized) Sig (Original) acetaminophen 500 mg oral tablet (20 sources) Start: 01-08-2025 End: 05-10-2025 take 2 tablets by mo [facility] at bedtime as needed Acetaminophen 500 MG Cap 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 Active Comment on above: [facility] 6 hours as needed. ALIGN PROBIOTIC RESISTANCE CAPSULE (20 sources) take 1 capsule by mouth once daily ALIGN PROBIOTIC RESISTANCE CAPSULE Take 1 capsule by mouth once daily. Suspended take 1 capsule by mouth once kandice ly ALIGN PROBIOTIC RESISTANCE CAPSULE Take 1 capsule by mouth once daily. Active biotin 5 mg sublingual table t (20 sources) Start: 04-16-2025 End: 05-10-2025 BIOTIN ORAL Take 5,000 mcg b y mouth. 05/10/2025 Discontinued Biotin 5000 MCG capsule Take 1 capsule by mouth. Active BIOTIN ORAL Take 5,000 mcg by mouth. Active BIOTIN ORAL Take 5,000 mcg by mouth. 0 Active Comment on above: Take 5,000 mcg by [facility]. Blood-Glucose Meter monitoring kit (20 sources) Start: 05-14-2025 Blood-Glucose Meter monitoring kit Indications: Type 2 diabetes mellitus without complication, without long-term current use of insulin (HCC) 1 each as needed for up to 1 day. Please give supplies to last for 2 tests a day 1 kit 5 05/14/2025 Suspended Start: 05-14-2025 Blood-Glucose Meter monitoring kit Indications: Type 2 diabetes mellitus without complication, without long-term current use of insulin (HCC) 1 each as needed for up to 1 day. Please give supplies to last for 2 tests a day 1 kit 5 05/14/2025 Active cefpodoxime 200 mg oral tablet (9 sources) Cephalosporin Antibacterial Start: 05-27-2025 End: 05-30-2025 take 1 tablet by mouth twice daily cefpodoxime (VANTIN) 200 mg tablet Take 1 tablet by mouth two times a day for 3 days. 05/27/2025 05/30/2025 Active Start: 05-17-2025 take 1 tablet by alfonso th twice daily cefpodoxime (VANTIN) 200 mg tablet Take 200 mg by mouth two times a day. 05/17/2025 Suspended cetirizine hydrochloride 10 mg oral capsule (20 sources) Histamine-1 Receptor Antagonist Start: 05-27-2025 Cetirizine 10 mg cap Take 0.5 capsules by mouth as needed (allergies). 05/27/2025 Active Start: 01-08-2025 Cetirizine 10 mg cap Take by mouth as needed (allergies). Suspended ciprofloxacin 250 mg oral tablet (1 source) Quinolone Antimicrobial Start: 04-07-2022 End: 04-17-2022 take 1 tablet by mouth twice daily ciprofloxacin HCl (CIPRO) 250 mg tablet Take 1 tablet by mouth twice daily for 10 days. 20 tablet 0 04/07/2022 04/17/2022 Active Comment on above: Take 1 tablet by alfonso th twice daily for 10 days. Dietary Management [...] hydrochloride 240 mg extended release oral capsule (20 sources) Calcium Channel Castillo Start: 01-11-2025 End: 05-10-2025 diosmin complex no.1 (VASCULERA) 630 mg tab (20 sources) take 1 tablet by mouth once daily diosmin complex no.1 (VASCULERA) 630 mg tab Take 1 tablet by mouth once daily. Suspended take 1 tablet by mouth once nini y diosmin complex no.1 (VASCULERA) 630 mg tab Take 1 tablet by mouth once daily. Active take 1 tablet by mouth once nini y diosmin complex no.1 (VASCULERA) 630 mg tab Take 1 tablet by mouth once daily. 0 Active Comment on above: [facility] daily. Diosmin Complex No.1 (Vasculera) 630 mg tablet (3 sources) Start: Diosmin Complex No.1 (Vasculera) 630 mg tablet Active 1 {tbl} PO DAILY January 08, 2025 1:00am doxycycline monohydrate 100 mg oral capsule (1 source) Tetracycline-class Drug Start: End: take 1 capsule by mouth twice daily doxycycline monohydrate (MONODOX) 100 mg capsule Indications: Acute non-recurrent sinusitis, unspecified location Take 1 capsule by mouth two times a day for 5 days. 10 capsule 12/22/2024 12/27/2024 Active empagliflozin 10 mg oral tablet (20 sources) Sodium-Glucose Cotransporter 2 Inhibitor Start: End: take 1 tablet by mouth once daily at breakfast empagliflozin (JARDIANCE) 10 mg tablet Take 1 tablet by mouth daily with breakfast. 90 tablet 3 06/07/2025 06/07/2026 Active gabapentin 300 mg oral capsule (20 sources) Anti-epileptic Agent Start: End: take 1 capsule by mouth once daily gabapentin (NEURONTIN) 300 mg capsule Indications: Type 2 diabetes mellitus with peripheral neuropathy (HCC) Take 1 capsule by mouth once daily. 90 capsule 3 03/04/2025 03/04/2026 Active Comment on above: Take 1 capsule by [facility] once daily. 12 hr guaiFENesin 600 mg extended release oral tablet (8 sources) Start: L.Acidoph, Paracasei,B. Lactis (2 sources) Start: take 1 capsule by mouth once daily L.Acidoph, Paracasei,B. Lactis Active 1 CAPSULE PO DAILY September 30, 2017 1:00am levothyroxine sodium 0.1 mg oral tablet (20 sources) l-Thyroxine Start: End: take 1 tablet by mouth once daily levothyroxine (SYNTHROID) 100 mcg tablet Indications: Hypothyroidism, adult Take 1 tablet by mouth once daily. 90 tablet 3 03/04/2025 Active Comment on above: Take 1 tablet by alfonso th once daily. Liraglutide (Victoza 2-Elkin) 0.6 MG/0.1 ML pen injector (3 sources) Start: Liraglutide (Victoza 2-Elkin) 0.6 MG/0.1 ML pen injector Active 1.2 mg SQ WITH BREAKFAST September 30, 2017 1:00am lisinopril 40 mg oral tablet (20 sources) Angiotensin Converting Enzyme Inhibitor Start: End: Start: 09-30-2017 take 10 mg by mouth once daily Lisinopril 40 MG tablet Active 40 mg PO DAILY September 30, 2017 1:00am On Hold: Hold for SBP less than 130 mmHg. Follow with PCP and may decrease the dose to 10 mg daily. Comment on above: Take 1 tablet by alfonso once daily. 24 hr metFORMIN hydrochloride 500 mg extended release oral tablet (20 sources) Biguanide Start: End: take 1 tablet by mouth [...] tablet 3 03/22/2022 Active Start: 09-30-2017 End: 05-03-2025 take 1 tablet by alfonso twice daily metformin 500 MG PO TABS Take 1 tablet by mouth 2 times daily. Active Comment on above: Take 2 tablets by mo [facility] once daily. metoprolol tartrate 50 mg oral tablet (20 sources) beta-Adrenergic Castillo Start: 01-11-2025 End: 05-10-2026 take 0.5 tablet by mouth twice daily metoprolol tartrate, short acting, (LOPRESSOR) 50 mg tablet Take 0.5 tablets by mouth two times a day. 180 tablet 3 05/10/2025 05/10/2026 Active Start: 01-11-2025 End: 01-22-2026 take 1 tablet by mouth twice daily metoprolol tartrate, short acting, (LOPRESSOR) 50 mg tablet Take 1 tablet by mouth two times a day. 180 tablet 3 01/22/2025 05/10/2025 Discontinued (Adjust Sig - Block E-Cancel) multivitamin PO TABS (13 sources) take 1 tablet by alfonso th once daily multivitamin PO TABS Take 1 tablet by mouth daily. Active take 1 tablet by mouth once nini y multivitamin PO TABS Take 1 tablet by mouth daily. 0 Active take 1 tablet by mouth once nini y multivitamin PO TABS take 1 Tab by mouth Daily. 0 Active Gnvfzcxfpjdf-Logtkkge-Ffdfti (A Thru Z High Potency) tablet (3 sources) Start: 01-08-2025 Kuyzbwvqqrtk-Sftpapcn-Beqjly (A Thru Z High Potency) tablet Active 1 {tbl} PO DAILY January 08, 2025 1:00am multivitamins(DAILY MULTIVIT ALBERT TAB) (20 sources) Start: 12-02-2008 multivitamins(DAILY MULTIVIT ALBERT TAB) Take one(1) tablet daily. 0 12/02/2008 Suspended Start: 12-02-2008 multivitamins( DAILY MULTIVITAMIN TAB) Take one(1) tablet daily. 0 12/02/2008 Active Comment on above: Take one(1) tablet d aily. pantoprazole 40 mg delayed release oral tablet (20 sources) Proton Pump Inhibitor Start: 5 End: take 1 tablet by mouth every twelve hours pantoprazole DR (PROTONIX) 40 mg tablet Take 1 tablet by mouth every 12 hours. 60 tablet 2 06/07/2025 06/07/2026 Active Start: 05-03-2025 End: 06-22-2025 take 1 tablet by mouth twice daily pantoprazole DR (PROTONIX) 40 mg tablet Take 1 tablet by mouth two times a day for 15 days. 30 tablet 06/07/2025 Active pentoxifylline 400 mg extend ed release oral tablet (20 sources) Blood Viscosity Commutator Inspector Start: 09-30-2017 End: 05-21-2025 Start: 09-30-2017 Pentoxifylline 400 MG tablet Active 1 {tbl} PO THREE TIMES A DAY September 30, 2017 1:00am Comment on above: Take 1 tablet by alfonso th three times daily. Take 1 tablet by alfonso th three times a day. 0.25 mg, 0.5 mg dose 1.5 ml semaglutide 1.34 mg/ml pen injector (8 sources) Start: simvastatin 20 mg oral tablet (20 sources) HMG-CoA Reductase Inhibitor Start: take 1 tablet by mouth once [...] at bedtime. 90 tablet 3 03/06/2025 Active Comment on above: Take 1 tablet by alfonso daily at bedtime. spironolactone 25 mg oral tablet (19 sources) Aldosterone Antagonist Start: 05-28-20 End: 06-07-20 take 1 tablet by mouth once daily spironolactone (ALDACTONE) 25 mg tablet Take 1 tablet by mouth once daily. 90 tablet 3 06/07/2025 06/07/2026 Active sucralfate 1000 mg oral tablet (20 sources) Aluminum Complex Start: 05-03-20 End: 06-07-20 take 1 tablet by mouth three times daily before mealtime sucralfate (CARAFATE) 1 gram tablet Take 1 tablet by mouth three times a day before meals. 270 tablet 1 06/07/2025 Active Start: 05-03-2025 End: 06-22-2025 take 1 tablet by mouth four times daily sucralfate (CARAFATE) 1 gram tablet Take 1 tablet by mouth four times daily for 15 days. 60 tablet 06/07/2025 06/22/2025 Active torsemide 20 mg oral tablet (19 sources) Loop Diuretic Start: 05-28-2025 End: 06-02-2026 take 1 tablet by mouth once daily as needed torsemide (DEMADEX) 20 mg tablet Take 1 tablet by mouth once daily as needed. For weight gain 06/28/2025 Active triamcinolone acetonide 1 mg/ml topical cream (20 [...] in the nose once daily. 01/08/2025 Discontinued (20 sources) Start: 01-08-2025 Start: 09-30-2017 End: 01-08-2025 Start: 09-30-2017 End: 04-16-2025 Start: 09-30-2017 End: 01-08-2025 Completed/Discontinued Medications Medication Drug Class(es) Dates Sig (Normalized) Sig (Original) amiodarone hydrochloride 200 mg oral tablet (20 sources) Antiarrhythmic Start: 04-26-2025 End: 2025 take 1 tablet by mouth twice daily amiodarone (PACERONE) 200 mg tablet Take 1 tablet by mouth two times a day. 180 tablet 1 06/07/2025 07/19/2025 Discontinued (Discontinued by Patient) Start: 04-26-2025 take 1 tablet by alfonso th every twelve hours amiodarone (PACERONE) 200 mg tablet Take 1 tablet by mouth every 12 hours. 04/26/2025 Suspended amLODIPine 5 mg oral tablet (20 sources) Dihydropyridine Calcium Channel Castillo Start: 04-11-2023 End: 03-29-2024 take 1 tablet by mouth twice daily amLODIPine (NORVASC) 2.5 mg tablet Indications: Essential hypertension Take 1 tablet by mouth twice daily. 180 tablet 3 04/11/2023 03/29/2024 Discontinued Start: 09-21-2021 End: 03-22-2022 take 1 tablet by mouth twice daily amLODIPine (NORVASC) 2.5 mg tablet Indications: Essential hypertension Take 1 tablet by mouth twice daily. 180 tablet 3 03/22/2022 Active Start: 09-30-2017 End: 05-21-2025 Start: 09-30-2017 take 5 mg by mouth [...] above: Take 1 tablet by alfonso th twice daily. apixaban 5 mg oral tablet (20 sources) Factor Xa Inhibitor Start: 05-17-2025 take 1 tablet by mouth twice daily apixaban (ELIQUIS) 5 mg tab(s) Take 1 tablet by mouth two times a day. Patient should start on May 17, 2025. 05/17/2025 Suspended Start: 05-17-2025 take 1 tablet by alfonso th twice daily apixaban (ELIQUIS) 5 mg tab(s) Take 1 tablet by mouth two times a day. Patient should start on May 17, 2025. 05/17/2025 Active Start: 05-17-2025 take 1 tablet by alfonso th twice daily apixaban (ELIQUIS) 5 mg tab(s) Take 1 tablet by mouth two times a day. Patient should start on May 17, 2025. 05/17/2025 Active Start: 05-17-2025 take 1 tablet by alfonso th twice daily apixaban (ELIQUIS) 5 mg tab(s) Take 1 tablet by mouth two times a day. Patient should start on May 17, 2025. 05/17/2025 Active Start: 05-17-2025 take 1 tablet by alfonso th twice daily apixaban (ELIQUIS) 5 mg tab(s) Take 1 tablet by mouth two times a day. Patient should start on May 17, 2025. 05/17/2025 Active Start: 05-17-2025 take 1 tablet by alfonso th twice daily apixaban (ELIQUIS) 5 mg tab(s) Take 1 tablet by mouth two times a day. Patient should start on May 17, 2025. 05/17/2025 Active Start: 01-11-2025 End: 05-10-2025 aspirin 81 mg chewable tablet (20 sources) Platelet Aggregation Inhibitor, Nonsteroidal Anti-inflammatory Drug Start: 09-30-2017 End: 01-11-2025 End: 05-21-2025 take 1 tablet by mouth once daily aspirin, enteric coated 81 mg EC tablet Take 81 mg by mouth once daily. 05/21/2025 Discontinued take 1 tablet by alfonso th once daily aspirin 81 MG PO TABS Take 1 tablet by mouth daily. Active Comment on above: Take 81 mg by mouth once daily. atenolol 25 mg oral tablet (20 sources) beta-Adrenergic Castillo Start: 09-30-2017 End: 01-22-2025 take 0.5 tablet by mouth once da kylah atenolol 50 MG PO TABS Take 0.5 tablets by mouth daily. 0 Active atenolol 50 MG P O TABS take 25 mg by mouth daily. 0 Active Comment on above: Take 1 tablet by alfonso th once daily. azelastine hydrochloride 0.137 mg/actuat / fluticasone propionate 0.05 mg/actuat metered dose nasal spray (20 sources) Corticosteroid, Histamine-1 Receptor Antagonist Start: 01-08-20 End: 05-21-20 take 1 spray(s) nasal route twice daily azelastine-fluticaso ne (DYMISTA) 137-50 mcg/spray nasal spray Indications: Vasomotor rhinitis , Post-nasal drip Use 1 Graham in each nostril two times a day. 23 g 5 01/08/2025 05/21/2025 Discontinued azithromycin 250 mg oral tablet (14 sources) Macrolide Antimicrobial Start: 05-08-20 azithromycin (ZITHROMAX) 250 mg tablet Take 250 mg by mouth as directed. 05/08/2025 Suspended Start: 05-08-2025 End: 05-15-2025 betamethasone 0.5 mg/ml topical cream (20 sources) Corticosteroid Start: 06-13-2019 End: 05-10-2025 betamethasone dipropionate (DIPROSONE) 0.05 % cream Indications: Contact dermatitis and eczema Apply to rash on neck once or twice a day as needed. 45 g 1 06/13/2019 05/10/2025 Discontinued Comment on above: Apply to rash on nec k once or twice a day as needed. 12 hr dextromethorphan hydrobromide 30 mg / guaiFENesin 600 mg extended release oral tablet (11 sources) Uncompetitive K-qnuhom-Y-aspartate Receptor Antagonist, Sigma-1 Agonist Start: 01-11-2025 End: 04-16-2025 Start: 01-11-2025 End: 04-16-2025 Dextromethorphan-Guaifenesin (Mucinex Dm) 30-600 mg Tablet Extended Release [...] nostril once daily. Rinse mouth after use. furosemide 40 mg oral tablet (20 sources) Loop Diuretic Start: 01-11-2025 End: 05-10-2025 Start: 01-11-2025 End: 01-23-2025 take 1 tablet by mouth once daily in the evening, then take 5 tablets by mouth every week Furosemide 40 mg tablet Active 40 mg PO DAILY 90 90 January 23, 2025 12:56pm Take extra 40 mg dose at 5 PM for increased leg swelling or weight gain 5 pounds in 1 week. hydroCHLOROthiazide 25 mg or al tablet (20 sources) Thiazide Diuretic Start: 09-30-2017 End: 03-04-2025 take 0.5 tablet by mouth once da [...] as needed.. Reported on 03/01/2017 0 Active L.Acidishmael,Huseyini,B.Animal is 1 EACH capsule (3 sources) Start: 09-30-2017 End: 01-08-2025 take 1 capsule by mouth once daily L.Acidishmael,HuseyiniB.Animalis 1 EACH capsule Discontinued 1 CAPSULE PO [...] Vascu larum per vascular surgeon. Unknown dose metOLazone 5 mg oral tablet (20 sources) Thiazide-like Diuretic Start: 05-10-2025 metOLazone (ZAROXOLYN) 5 mg tablet Wednesdays and Tuesday. 30 tablet 3 05/10/2025 Suspended Start: 04-26-2025 End: 05-10-2025 Multivitamin (Daily Multiple Vitamin) 1 EACH tablet (5 sources) Start: 09-30-2017 End: 01-08-2025 take 1 tablet by mouth once daily Multivitamin (Daily Multiple Vitamin) 1 EACH tablet Discontinued 1 NMA PO DAILY September 30, 2017 1:00am January 08, 2025 1:42pm Start: 09-30-2017 take 1 tablet by alfonso th once daily Multivitamin (Daily Multiple Vitamin) 1 EACH tablet Active 1 EACH PO DAILY September 30, 2017 1:00am mupirocin 0.02 mg/mg topical ointment (20 sources) RNA Synthetase Inhibitor Antibacterial Start: 03-30-2019 End: 05-21-2025 mupirocin (BACTROBAN) 2 % ointment Apply 1 application to affected area twice daily. 15 g 03/30/2019 05/21/2025 Discontinued Comment on above: Apply 1 application to affected area twice daily. OTC PRODUCT (20 sources) End: 12-08-2023 OTC PRODUCT Diet Tonic water 6-8oz daily to prevent leg cramps 12/08/2023 Discontinued OTC PRODUCT Diet Tonic water 6-8oz daily to prevent leg cramps 0 Active Comment on above: Diet Tonic water 6-8 oz daily to prevent leg cramps OXYGEN, HOME THERAPY, (19 sources) End: 06-07-2025 OXYGEN, HOME THERAPY, 2 L/min by Nasal Cannula route as directed. 06/07/2025 Discontinued OXYGEN, HOME THE RAPY, 2 L/min by Nasal Cannula route as directed. Suspended OXYGEN, HOME THE RAPY, 2 L/min by Nasal Cannula route as directed. Active pramipexole dihydrochloride 0.125 mg oral tablet (3 sources) Nonergot Dopamine Agonist Start: 02-07-2023 End: 09-05-2023 Pramipexole Dihydrochloride 0.125 MG tablet Take one tab at dinner and bedtime 180 tablet 3 02/07/2023 09/05/2023 Discontinued (Therapy completed) Start: 01-24-2023 Pramipexole Di hydrochloride 0.125 MG tablet Take one tab at dinner and bedtime 60 tablet 0 01/24/2023 Active semaglutide (OZEMPIC) 0.25 m g or 0.5 mg (2 mg/3 mL) pen (20 sources) Start: 03-04-2025 End: 05-21-2025 semaglutide (OZEMPIC) 0.25 m g or 0.5 [...] time a week. 9 mL 1 03/04/2025 05/21/2025 Discontinued Start: 03-04-2025 semaglutide (O ZEMPIC) 0.25 mg or 0.5 [...] a week. 3 mL 1 12/17/2024 Active sulfamethoxazole 800 mg / trimethoprim 160 [...] foot] Chronic Acute and unspecified renal failure (18 sources) Acute renal failure syndrome; 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: [Acute kidney failure, unspecified] Onset: 5 04-16-2025 Episodic Acute posthemorrhagic anemia (13 sources) Acute posthemorrhagic anemia; 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: [Acute posthemorrhagic anemia] Onset: 5 04-27-2025 Episodic Cancer of breast (20 sources) Intraductal carcinoma in situ of right breast; 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: [Intraductal carcinoma in situ of right breast] Onset: 0 Resolved: 0 Chronic Cardiac dysrhythmias (20 sources) Cardiac arrhythmia; 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: [Cardiac arrhythmia, unspecified] Onset: 5 01-08-2025 Chronic Cardiac dysrhythmias (5 sources) Palpitations; 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: [Palpitations] Onset: 5 01-08-2025 Episodic Chronic kidney disease (20 sources) Chronic kidney disease stage 3A ; 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: [Stage 3a chronic kidney disease (HCC)] Onset: 5 01-08-2025 Chronic Chronic kidney disease (2 sources) Chronic kidney disease; 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: [Stage 3b chronic kidney disease (HCC)] Onset: 5 Chronic ulcer of skin (1 source) Non-pressure chronic ulcer of unspecified part of right lower leg with unspecified severity; 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: [Non-pressure chronic ulcer of unspecified part of right lower leg with unspecified severity] Onset: 5 Chronic Conduction disorders (13 sources) Right bundle branch block; 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: [Unspecified right bundle-branch block] 02-27-2009 Chronic Congestive heart failure; nonhypertensive (20 sources) Acute on chronic heart failure co-occurrent with normal ejection fraction; 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: [Acute on chronic diastolic (congestive) heart failure] Onset: 5 01-22-2025 Chronic Deficiency and other anemia (20 sources) Anemia; 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: [Anemia, unspecified] Onset: 5 05-09-2025 Episodic Deficiency and other anemia (20 sources) Iron deficiency anemia; 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: [Iron deficiency anemia, unspecified] Onset: 5 05-10-2025 Episodic Deficiency and other anemia (2 sources) Anemia, unspecified; 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: [Anemia, unspecified type] Onset: 5 Episodic Diabetes mellitus with complications (20 sources) Polyneuropathy due to type 2 diabetes mellitus; 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: [Type 2 diabetes mellitus with diabetic polyneuropathy] Onset: 5 Chronic Disorders of lipid metabolism (20 sources) Hyperlipidemia; 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: [Hyperlipidemia, unspecified] Onset: 6 08-25-2016 Chronic Essential hypertension (20 sources) Essential hypertension; 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: [Essential (primary) hypertension] Onset: 9 09-21-2021 Chronic Gastrointestinal hemorrhage (20 sources) Gastrointestinal hemorrhage; 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: [Gastrointestinal hemorrhage, unspecified] Onset: 5 04-26-2025 Episodic Heart valve disorders (20 sources) Mitral valve annular calcification; 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: [Mitral valve annular calcification] Onset: 5 05-09-2025 Chronic Hypertension with complications and secondary hypertension (1 source) Hypertensive heart disease with heart failure; 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: [Hypertensive heart disease with heart failure] Onset: 5 Chronic Maintenance chemotherapy; radiotherapy (13 sources) Patient encounter status; 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: [Encounter for antineoplastic radiation therapy] 08-23-2022 Chronic Malaise and fatigue (1 source) Malaise; 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: [Other malaise] 01-08-2025 Episodic Mycoses (8 sources) Onychomycosis; 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: [Tinea unguium] Episodic Nutritional deficiencies (1 source) Nutritional disorder; 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: [Unspecified severe protein-calorie malnutrition] 01-08-2025 Chronic Nutritional deficiencies (5 sources) Nutritional disorder; 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: [Cobalamin deficiency] Onset: 5 01-08-2025 Episodic Open wounds of extremities (1 source) Unspecified open wound, right lower leg, sequela; 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: [Late effect of open wound of extremities without mention of tendon injury] 05-14-2025 Episodic Osteoarthritis (20 sources) Degenerative joint disease involving multiple joints; 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: [Polyosteoarthritis, unspecified] Onset: 2 Resolved: 6 12-15-2007 Chronic Other aftercare (2 sources) Post-discharge follow-up; 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: [Encounter for follow-up examination after completed treatment for conditions other than malignant neoplasm] 01-22-2025 Episodic Other aftercare (14 sources) Long-term current use of anticoagulant; 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] 04-26-2025 Episodic Other aftercare (1 source) Encounter for follow-up examination after completed treatment for conditions other than malignant neoplasm; 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: [Hospital discharge follow-up] Onset: Episodic Other aftercare (1 source) 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; 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] Onset: Episodic Other and ill-defined heart disease (13 sources) Cardiomegaly; 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: [Cardiomegaly] 08-31-2022 Chronic Other and ill-defined heart disease (3 sources) Cardiomegaly; 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: [Cardiomegaly] Onset: Chronic Other and ill-defined heart disease (3 sources) Bilateral enlargement of atria; 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: [Cardiomegaly] 05-09-2025 Chronic Other circulatory disease (3 sources) Carotid bruit; 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: [Other specified symptoms and signs involving the circulatory and respiratory systems] Episodic Other circulatory disease (14 sources) Transient hypotension; 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: [Hypotension, unspecified] 04-26-2025 Episodic Other circulatory disease (6 sources) Low blood pressure; 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: [Hypotension, unspecified] 05-13-2025 Episodic Other circulatory disease (2 sources) Hypotension, unspecified; 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: [Hypotension, unspecified] Onset: 5 Episodic Other connective tissue disease (20 sources) History of bilateral total knee replacement; 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: [Presence of artificial knee joint, bilateral] Onset: 4 08-25-2016 Chronic Other connective tissue disease (13 sources) History of total knee arthroplasty; 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: [Presence of artificial knee joint, bilateral] 08-31-2022 Chronic Other connective tissue disease (13 sources) History of total hip arthroplasty; 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: [...] left toe(s)] Episodic Other connective tissue disease (13 sources) Swelling of left lower limb; 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: [Other specified soft tissue disorders] 08-31-2022 Episodic Other connective tissue disease (13 sources) Swelling of right lower limb; 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: [...] Chronic Other diseases of veins and lymphatics (1 source) Lymphedema, not elsewhere classified; 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: [Lymphedema, not elsewhere classified] Onset: 5 Chronic Other diseases of veins and lymphatics (2 sources) Stasis dermatitis; 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: [Venous insufficiency (chronic) (peripheral)] Episodic Other diseases of veins and lymphatics (2 sources) Venous insufficiency (chronic) (peripheral); 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: [Venous (peripheral) insufficiency, unspecified] Episodic Other diseases of veins and lymphatics (1 source) Vascular insufficiency; 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: [Venous insufficiency (chronic) (peripheral)] 10-11-2024 Episodic Other diseases of veins and lymphatics (11 sources) Disorder of vein of lower extremity; 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: [Venous insufficiency (chronic) (peripheral)] 09-30-2017 Episodic Other disorders of stomach and duodenum (1 source) Angiodysplasia of stomach and duodenum with bleeding; 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: [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] Onset: Episodic Other gastrointestinal disorders (1 source) Finding of measures of abdomen; 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: [Other specified symptoms and signs involving the digestive system and abdomen] 01-08-2025 Episodic Other inflammatory condition of skin (1 source) Itching ; 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: [Pruritus, unspecified] 01-22-2025 Episodic Other lower respiratory disease (3 sources) Dyspnea; 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: [Dyspnea, unspecified] 01-08-2025 Episodic Other nervous system disorders (1 source) [...] nutritional; endocrine; and metabolic disorders (1 source) Obesity caused by energy imbalance; 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: [Morbid (severe) obesity due to excess calories] 05-17-2025 Chronic Other nutritional; endocrine; and metabolic disorders (1 source) Body mass index 30+ - obesity; 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: [Body mass index (BMI) 35.0-35.9, adult] 05-21-2025 Chronic Other nutritional; endocrine; and metabolic disorders (1 source) Body mass index (BMI) 35.0-35.9, adult; 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: [BMI 35.0-35.9,adult] Onset: Chronic Other nutritional; endocrine; and metabolic disorders (1 source) Weight increased; 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: [Abnormal weight gain] 01-08-2025 Episodic Other nutritional; endocrine; and metabolic disorders (19 sources) H/O: hypothyroidism; 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: [Personal history of other endocrine, nutritional and metabolic disease] 01-08-2025 Episodic Other nutritional; endocrine; and metabolic disorders (19 sources) H/O: diabetes mellitus; 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: [Personal history of other endocrine, nutritional and metabolic disease] 01-08-2025 Episodic Other nutritional; endocrine; and metabolic disorders (1 source) Personal history of other endocrine, nutritional and metabolic disease; 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: [Personal history of other endocrine, nutritional and metabolic disease] Onset: Episodic Other skin disorders (13 sources) Hyperpigmentation of skin; 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: [Disorder of pigmentation, unspecified] 08-31-2022 Episodic Other skin disorders (2 sources) Disorder of pigmentation, unspecified; 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: [Dyschromia, unspecified] Episodic Other skin disorders (2 sources) Foot callus; 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: [Corns and callosities] Episodic Other upper respiratory disease (2 sources) Vasomotor rhinitis; 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: [Vasomotor rhinitis] 01-08-2025 Chronic Other upper respiratory infections (3 sources) Acute sinusitis; 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: [Acute sinusitis, unspecified] 12-22-2024 Episodic Deborah-; endo-; and myocarditis; cardiomyopathy (except that caused by tuberculosis or sexually transmitted disease) (1 source) Other cardiomyopathies; 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: [Cardiomyopathy, nonischemic (HCC)] Onset: 5 Chronic Peripheral and visceral atherosclerosis (20 sources) Peripheral vascular disease, unspecified; 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: [Peripheral arterial disease] Onset: 3 Chronic Pleurisy; pneumothorax; pulmonary collapse (20 sources) Pleural effusion; 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: [Pleural effusion, not elsewhere classified] Onset: 5 01-23-2025 Episodic Pneumonia (except that caused by tuberculosis or sexually transmitted disease) (4 sources) Pneumonia; 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: [Pneumonia, unspecified organism] 05-08-2025 Episodic Residual codes; unclassified (13 sources) History of lumbar laminectomy; 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: [Other specified postprocedural states] 08-31-2022 Episodic Residual codes; unclassified (15 sources) Other specified postprocedural states; 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: [Other postprocedural status] Episodic Residual codes; unclassified (1 source) Postoperative state; 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: [Other specified postprocedural states] 02-29-2024 Episodic Residual codes; unclassified (1 source) Pain; 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: [Pain, unspecified] 12-07-2023 Episodic Residual codes; unclassified (1 source) Past history of procedure; 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: [Personal history of other medical treatment] 06-07-2025 Episodic Respiratory failure; insufficiency; arrest (adult) (2 sources) Dependence on supplemental oxygen; 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: [Dependence on supplemental oxygen] Onset: 5 05-17-2025 Chronic Thyroid disorders (20 sources) Hypothyroidism; 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: [Hypothyroidism, unspecified] Onset: 5 Chronic Unclassified (1 source) Other persistent atrial fibrillation; 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: [Persistent atrial fibrillation (HCC)] Onset: 5 Unclassified (1 source) Chronic atrial fibrillation, unspecified; 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: [Chronic atrial fibrillation (HCC)] Onset: 5 Unclassified (1 source) Mitral valve annular calcification; 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: [Mitral valve annular calcification] Onset: 5 Urinary tract infections (1 source) Urinary tract infectious disease; 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: [Urinary tract infection, site not specified] Episodic Varicose veins of lower extremity (20 sources) Lipodermatosclerosis; 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: [Varicose veins of unspecified lower extremity with inflammation] Onset: 5 04-11-2018 Episodic Past or Other Problems Problem Classification Problem Date Documented Da te Episodic/Chronic Abdominal pain (20 sources) Abdominal pain; [...] disorders Onset: 08-30-2022 Resolved: 09-10-2024 08-30-2022 Other connective tissue disease (1 source) Panniculitis, unspecified; 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: [Lipodermatosclerosis ] Onset: 04-11-2018 Episodic Other diseases of veins and lymphatics (20 sources) Peripheral venous insufficiency; 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: [Venous insufficiency (chronic) (peripheral)] Onset: 05-14-2009 Resolved: 08-25-2016 Episodic Other gastrointestinal disorders (1 source) Other specified symptoms and signs involving the digestive system and abdomen; 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: [Increased abdominal girth] Onset: 02-27-2025 Episodic Other lower respiratory disease (1 source) Dyspnea, unspecified; 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: [Dyspnea, unspecified type] Onset: 02-27-2025 Episodic Other non-traumatic joint disorders (20 sources) Pain of right wrist; 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: [Pain in right wrist] Onset: 09-29-2021 Resolved: 03-18-2022 09-29-2021 Episodic Other nutritional; endocrine; and metabolic disorders (20 sources) Body mass index 40+ - severely obese; 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: [Morbid (severe) obesity due to excess calories] Onset: 03-28-2012 Resolved: 06-07-2025 05-28-2020 Chronic Other nutritional; endocrine; and metabolic disorders (20 sources) Obese class II; 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: [Obesity, unspecified] Onset: 07-31-2020 Resolved: 06-07-2025 07-31-2020 Chronic Other screening for suspected conditions (not mental [...] sources) Finding of measures of abdomen 01-08-2025 Results Test Name Value Interpretation Reference Range Facility CBC W Auto Differential pane l (Bld)on 07-19-2025 Basophils (Bld) [#/Vol] 0.09 10*3/uL [facility] Basophils/100 WBC (Bld) 1.1 % [facility] Differential cell count method Nom (Bld) Auto [facility] Eosinophils (Bld) [#/Vol] 0.19 10*3/uL [facility] Eosinophils/100 WBC (Bld) 2.4 % [facility] Erythrocyte distribution width (RBC) [Ratio] 18.1 % High 11.5 - 15.0 % [facility] Hematocrit (Bld) [Volume fraction] 36.5 % 36.0 - 46.0 % [facility] Hemoglobin (Bld) [Mass/Vol] 11.0 g/dL Low 11.5 - 15.5 g/dL [facility] Immature granulocytes (Bld) [#/Vol] [facility] Immature granulocytes/100 WBC (Bld) 0.3 % [facility] Interpretation and review of laboratory results Abnormal [facility] Lymphocytes (Bld) [#/Vol] 1.02 10*3/uL [facility] Lymphocytes/100 WBC (Bld) 12.8 % [facility] MCH (RBC) [Entitic mass] 27.9 pg 26. 0 - 34.0 pg [facility] MCHC (RBC) [Mass/Vol] 30.1 g/dL Low 30.5 - 36.0 g/dL [facility] MCV (RBC) [Entitic vol] 92.6 fL 80.0 - 100.0 fL [facility] Monocytes (Bld) [#/Vol] 0.83 10*3/uL [facility] Monocytes/100 WBC (Bld) 10.4 % [facility] Neutrophils (Bld) [#/Vol] 5.80 10*3/uL [facility] Neutrophils/100 WBC (Bld) 73.0 % [facility] Nucleated RBC (Bld) [#/Vol] NINF [facility] Nucleated RBC/100 WBC (Bld) [Ratio] 0.0 % /100 WBC [facility] Platelet mean volume (Bld) [Entitic vol] 10.8 fL 9.0 - 12.7 fL [facility] Platelets (Bld) [#/Vol] 243 10*3/uL [facility] RBC (Bld) [#/Vol] 3.94 10*6/uL 3.90 - 5.20 m/uL [facility] WBC (Bld) [#/Vol] 7.95 10*3/uL [facility] ECG COMPLETEon 07-19-2025 Calculated R [place] -87 degrees [facility] Calculated T [place] -10 degrees [facility] QRS Duration 176 ms [facility] QT Interval 506 ms [facility] QTC Calculation (Bazett) 437 ms [facility] Ventricular Rate 45 BPM [facility] JUNCTIONAL RHYTHM COMPLETE RIGHT BUNDLE BRANCH BLOCK ABNORMAL ECG Confirmed by MD REECE QARAB ([id number]) on 07/19/2025 5:02:03 PM [facility] NAME : NISHI JACKSON PID : [id number] : 1940 Gender : Female Race : ORD : [id number] Procedure Date : Jul 19 2025 13:33:29 Edit Date : Jul 19 2025 17:02:05 Diagnosis: JUNCTIONAL RHYTHM COMPLETE RIGHT BUNDLE BRANCH BLOCK ABNORMAL ECG Confirmed by MD REECE QARAB ([id number]) on 07/19/2025 5:02:03 PM Test Reason : R00.1 Bradycardia Location : 185 : WO Overread By : MD REECE QARAB Edited By : MD REECE QARAB Referred By : , Acquired by : [id number], [facility] CNPTOUTREACHon 07-04-2025 CNPTOUTREACH Normal [facility] CNPTOUTREACHon 07-03-2025 CNPTOUTREACH Normal [facility] CNPNon 07-02-2025 CNPN Normal [facility] CBC panel Auto (Bld)on 06-27 Erythrocyte distribution width (RBC) [Ratio] 17.2 % High 11.5-15.0 [facility] Comment on above: Order Comment: Speci men Type: BLOOD SPECIMENOrdering Facility: [facility] Address: [address] [place] [address] Performed By: #### 5 8410-2 ####[facility] LABIA [id number] [place] [address] [place] Hematocrit (Bld) [Volume fraction] 38.7 % Normal 36.0-46.0 [facility] Comment on above: Order Comment: Speci men Type: BLOOD SPECIMENOrdering Facility: [facility] Address: [address] [place] [address] Performed By: #### 5 8410-2 ####[facility] LABIA [id number] [place] [address] [place] Hemoglobin (Bld) [Mass/Vol] 11.6 g/dL Normal 11.5-15.5 [facility] Comment on above: Order Comment: Speci men Type: BLOOD SPECIMENOrdering Facility: [facility] Address: [address] [place] [address] Performed By: #### 5 8410-2 ####[facility] LABIA [id number] [place] [address] [place] MCH (RBC) [Entitic mass] 28.0 pg Normal 26.0-34.0 [facility] Comment on above: Order Comment: Speci men Type: BLOOD SPECIMENOrdering Facility: [facility] Address: [address] [place] [address] Performed By: #### 5 8410-2 ####[facility] LABIA [id number] [place] [address] [place] MCHC (RBC) [Mass/Vol] 30.0 g/dL Low 30.5-36.0 [facility] Comment on above: Order Comment: Speci men Type: BLOOD SPECIMENOrdering Facility: [facility] Address: [address] [place] [address] Performed By: #### 5 8410-2 ####[facility] LABCLIA [id number] [address] [place] [address] [place] MCV (RBC) [Entitic vol] 93.5 fL Normal 80.0-100.0 [facility] Comment on above: Order Comment: Speci men Type: BLOOD SPECIMENOrdering Facility: [facility] Address: [address] [place] [address] Performed By: #### 5 8410-2 ####[facility] LABCLIA [id number] [place] [id number] [place] Nucleated RBC (Bld) [#/Vol] 10*3/uL Normal <0.01 [facility] Comment on above: Order Comment: Speci men Type: BLOOD SPECIMENOrdering Facility: [facility] Address: [address] [place] [address] Performed By: #### 5 8410-2 ####[facility] LABIA [id number] [place] [address] [place] Platelet mean volume (Bld) [Entitic vol] 10.4 fL Normal 9.0-12.7 [facility] Comment on above: Order Comment: Speci men Type: BLOOD SPECIMENOrdering Facility: [facility] Address: [address] [place] [address] Performed By: #### 5 8410-2 ####[facility] LABIA [id number] [place] [id number] [place] Platelets (Bld) [#/Vol] 287 10*3/uL Normal 150-400 [facility] Comment on above: Order Comment: Speci men Type: BLOOD SPECIMENOrdering Facility: [facility] Address: [address] [place] [address] Performed By: #### 5 8410-2 ####[facility] LABIA [id number] [place] [id number] [place] RBC (Bld) [#/Vol] 4.14 10*6/uL Normal 3.90-5.20 [facility] Comment on above: Order Comment: Speci men Type: BLOOD SPECIMENOrdering Facility: [facility] Address: [address] [place] [address] Performed By: #### 5 8410-2 ####[facility] LABCLIA [id number] [place] [address] [place] WBC (Bld) [#/Vol] 7.89 10*3/uL Normal 3.70-11.00 [facility] Comment on above: Order Comment: Speci men Type: BLOOD SPECIMENOrdering Facility: [facility] Address: [address] [place] [address] Performed By: #### 5 8410-2 ####[facility] LABIA [id number] [place] [address] [place] CNOVon 06-27-2025 CNOV Normal [facility] Comprehensive metabolic 2000 panelon 06-27-2025 Albumin [Mass/Vol] 3.6 g/dL Low 3.9-4.9 [facility] Comment on above: Order Comment: Speci men Type: BLOOD SPECIMENOrdering Facility: [facility] Address: [address] [place] [address] Performed By: #### 3 016-3, 19387-4, 58309-3 ####[facility] LABCLIA [id number] [place] [address] [place] ALP [Catalytic activity/Vol] 147 U/L High 34-123 [facility] Comment on above: Order Comment: Speci men Type: BLOOD SPECIMENOrdering Facility: [facility] Address: [address] [place] [address] Performed By: #### 3 016-3, 49573-0, 07181-3 ####[facility] LABCLIA [id number] [address] [address] [place] ALT [Catalytic activity/Vol] 30 U/L Normal 7-38 [facility] Comment on above: Order Comment: Speci men Type: BLOOD SPECIMENOrdering Facility: [facility] Address: [address] [place] [address] Performed By: #### 3 016-3, 66065-5, 56301-4 ####[facility] LABCLIA [id number] [facility] [place] [id number] [place] Anion gap [Moles/Vol] 14 mmol/L Normal 8-15 [facility] Comment on above: Order Comment: Speci men Type: BLOOD SPECIMENOrdering Facility: [facility] Address: [address] [place] [address] Performed By: #### 3 016-3, 56340-7, 21980-0 ####[facility] LABCLIA [id number] [place] [address] [place] AST [Catalytic activity/Vol] 25 U/L Normal 13-35 [facility] Comment on above: Order Comment: Speci men Type: BLOOD SPECIMENOrdering Facility: [facility] Address: [address] [place] [address] Performed By: #### 3 016-3, 55666-2, 93151-8 ####[facility] LABCLIA [id number] [place] [id number] [place] Bilirubin [Mass/Vol] 0.3 mg/dL Normal 0.2-1.3 [facility] Comment on above: Order Comment: Speci men Type: BLOOD SPECIMENOrdering Facility: [facility] Address: [address] [place], [place] [address] Performed By: #### 3 016-3, 97306-6, 41524-9 ####[facility] LABCLIA [id number] [facility] [address] [address] [place] Calcium [Mass/Vol] 9.9 mg/dL Normal 8.5-10.2 [facility] Comment on above: Order Comment: Speci men Type: BLOOD SPECIMENOrdering Facility: [facility] Address: [address] [place] [address] Performed By: #### 3 016-3, 29608-7, 34529-3 ####[facility] LABCLIA [id number] [place] [address] [place] Chloride [Moles/Vol] 103 mmol/L Normal 98-107 [facility] Comment on above: Order Comment: Speci men Type: BLOOD SPECIMENOrdering Facility: [facility] Address: [address] [place] [address] Performed By: #### 3 016-3, 15896-4, 83209-3 ####[facility] LABCLIA [id number] [place] [address] [place] CO2 [Moles/Vol] 21 mmol/L Low 22-30 [facility] Comment on above: Order Comment: Speci men Type: BLOOD SPECIMENOrdering Facility: [facility] Address: [address] [place] [address] Performed By: #### 3 016-3, , ####[facility] LABCLIA [id number] [place] [address] [place] Creatinine [Mass/Vol] 2.03 mg/dL High 0.58-0.96 [facility] Comment on above: Order Comment: Speci men Type: BLOOD SPECIMENOrdering Facility: [facility] Address: [address] [place] [address] Performed By: #### 3 016-3, 68406-5, 19741-6 ####[facility] LABCLIA [id number] [place] [address] [place] eGFRcr SerPlBld CKD-EPI 2021 24 mL/min/1.73m??? Low >=60 [facility] Comment on above: Order Comment: Speci men Type: BLOOD SPECIMENOrdering Facility: [facility] Address: [address] [place] [address] Result Comment: Aura mated Glomerular Filtration Rate [...] accurately reflect actual GFR. Performed By: #### 3 016-3, 18480-6, 27736-1 ####[facility] [id number] [place] [address] [place] Glucose [Mass/Vol] 153 mg/dL High 74-99 [facility] Comment on above: Order Comment: My flannery Type: BLOOD SPECIMENOrdering Facility: [facility] Address: [address] [place] [address] Result Comment: The [place] Diabetes Association (ADA) provides guidance for cutoff values for fasting glucose and random glucose. The ADA defines fasting as no caloric intake for at least 8 hours. Fasting plasma glucose results between 100 to 125 mg/dL indicate increased risk for diabetes (prediabetes).Fasting plasma glucose results greater than or equal to 126 mg/dL meet the criteria for diagnosis of diabetes. In the absence of unequivocal hyperglycemia, results should be confirmed by repeat testing. In a patient with classic symptoms of hyperglycemia or hyperglycemic crisis, random plasma glucose results greater than or equal to 200 mg/dL meet the criteria for diagnosis of diabetes.Reference: Standards of Medical Care in Diabetes 2016, [place] [employer]. Diabetes Care. 2016.39(Suppl 1). Performed By: #### 3 016-3, 65334-3, 12303-3 ####[facility] [id number] [place] [id number] [place] Potassium [Moles/Vol] 5.2 mmol/L High 3.7-5.1 [facility] Comment on above: Order Comment: My flannery Type: BLOOD SPECIMENOrdering Facility: [facility] Address: [address] [place] [address] Performed By: #### 3 016-3, 43693-9, 96388-5 ####[facility] LABCLIA [id number] [address] [address] [place] Protein [Mass/Vol] 8.3 g/dL High 6.3-8.0 [facility] Comment on above: Order Comment: Speci men Type: BLOOD SPECIMENOrdering Facility: [facility] Address: [address] [place] [address] Performed By: #### 3 016-3, 90499-1, 45702-5 ####[facility] LABIA [id number] [place] [address] [place] Sodium [Moles/Vol] 138 mmol/L Normal 136-144 [facility] Comment on above: Order Comment: Speci men Type: BLOOD SPECIMENOrdering Facility: [facility] Address: [address] [place] [address] Performed By: #### 3 016-3, 06182-9, 16119-1 ####[facility] LABIA [id number] [place] [id number] [place] Urea nitrogen [Mass/Vol] 65 mg/dL High 7-21 [facility] Comment on above: Order Comment: Speci men Type: BLOOD SPECIMENOrdering Facility: [facility] Address: [address] [place] [address] Performed By: #### 3 016-3, 12386-5, 28498-0 ####[facility] LABIA [id number] [address] [address] [place] Lipid 1996 panelon 5 Cholesterol [Mass/Vol] 100 mg/dL Normal <200 [facility] Comment on above: Order Comment: Speci men Type: BLOOD SPECIMENOrdering Facility: [facility] Address: [address] [place], [place] [address] Result Comment: <200 mg/dL, Desirable 200-239 mg/dL, Borderline high>239 mg/dL, High Performed By: #### 3 016-3, 44767-5, 48008-7 ####[facility] LABCLIA [id number] [address] [facility] Cholesterol in HDL [Mass/Vol] 50 mg/dL Normal >39 [facility] Comment on above: Order Comment: Speci men Type: BLOOD SPECIMENOrdering Facility: [facility] Address: [address] [place] [address] Result Comment: 40-5 9 mg/dL, Acceptable>59 mg/dL, High: Negative risk factor for coronary heart disease<40 mg/dL, Low: Positive risk factor for coronary heart disease Performed By: #### 3 016-3, 88071-1, ####[facility] LABCLIA [id number] [address] [place] Cholesterol in LDL [Mass/Vol] 33 mg/dL Normal <100 [facility] Comment on above: Order Comment: Faithi men Type: BLOOD SPECIMENOrdering Facility: [facility] Address: [address] [place] [address] Result Comment: <100 mg/dL, Optimal 100-129 mg/dL, Near optimal/above optimal 130-159 mg/dL, Borderline high 160-189 mg/dL, High>189 mg/dL, Very highSecondary prevention optimal LDL Cholesterol levels are recommended to be <70 mg/dLLDL cholesterol is calculated using the Lewis-NIH equation. Performed By: #### 3 016-3, 55778-7, ####[facility] LABIA [id number] [place] [id number] [place] Cholesterol in LDL/Cholesterol in HDL [Mass ratio] 0.66 {ratio} Normal <2.54 [facility] Comment on above: Order Comment: Speci men Type: BLOOD SPECIMENOrdering Facility: [facility] Address: [address] [place] [address] Result Comment: Kike maciel:1. National Cholesterol Education Program ATP III Guideline At-A-Glance Quick Desk Reference: National Heart, Lung, and Blood Carbon. National Institutes of Health. 2001: NIH Publication No. 01-3305.2. An International Atherosclerosis Society position paper: global recommendations for the management of dyslipidemia: executive summary, Atherosclerosis. 2014: 232(2):410-413. Performed By: #### 3 016-3, 12990-8, 24279-6 ####[facility] LABCLIA [id number] [place] [address] [place] Cholesterol in VLDL [Mass/Vol] 12 mg/dL Normal <30 [facility] Comment on above: Order Comment: Speci men Type: BLOOD SPECIMENOrdering Facility: [facility] Address: [address] [place] [address] Performed By: #### 3 016-3, 17279-8, 26225-9 ####[facility] LABCLIA [id number] [place] [id number] [place] Cholesterol non HDL [Mass/Vol] 50 mg/dL Normal <130 [facility] Comment on above: Order Comment: Speci men Type: BLOOD SPECIMENOrdering Facility: [facility] Address: [address] [place] [address] Result Comment: <130 mg/dL, Optimal 130-159 mg/dL, Near optimal/above optimal 160-189 mg/dL, Borderline high 190-219 mg/dL, High>219 mg/dL, Very highSecondary prevention optimal non HDL Cholesterol levels are recommended to be <100 mg/dL Performed By: #### 3 016-3, 68534-9, 98854-4 ####[facility] LABIA [id number] [address] [place] [address] [place] Cholesterol.total/Choles terol in HDL [Mass ratio] 2.00 {ratio} Normal <5.10 [facility] Comment on above: Order Comment: Faithi men Type: BLOOD SPECIMENOrdering Facility: [facility] Address: [address] [place] [address] Performed By: #### 3 016-3, 63994-0, 46855-3 ####[facility] LABCLIA [id number] [address] [place] [address] [place] FASTING TIME 0 hrs Normal [facility] Comment on above: Order Comment: Speci men Type: BLOOD SPECIMENOrdering Facility: [facility] Address: [address] [place] [address] Performed By: #### 3 016-3, 68457-8, 70416-1 ####[facility] LABCLIA [id number] [address] [address] [place] Triglyceride [Mass/Vol] 89 mg/dL Normal <150 [facility] Comment on above: Order Comment: Speci men Type: BLOOD SPECIMENOrdering Facility: [facility] Address: [address] [place] [address] Result Comment: <150 mg/dL, Normal 150-199 mg/dL, Borderline high 200-499 mg/dL, High>499 mg/dL, Very high Performed By: #### 3 016-3, 25672-7, 94267-2 ####[facility] LABCLIA [id number] [place] [address] [place] TSH SerPl-aCncon 06-27-2025 TSH Qn 2.970 m[IU]/L Normal 0.270-4.20 0 [facility] Comment on above: Order Comment: Speci men Type: BLOOD SPECIMENOrdering Facility: [facility] Address: [address] [place], [place] [address] Performed By: #### 3 016-3, 23598-5, 99508-7 ####[facility] LABCLIA [id number] [place] [address] [place] CNPTOUTREACHon 06-26-2025 CNPTOUTREACH Normal [facility] CNPTOUTREACHon 06-25-2025 CNPTOUTREACH Normal [facility] CNOVon 07-31-2025 CNOV Normal [facility] XR CHEST 2V FRONTAL/LATon XR CHEST 2V FRONTAL/LAT Normal [facility] CNPTOUTREACHon 06-11-2025 CNPTOUTREACH Normal [facility] CNPNon 06-10-2025 CNPN Normal [facility] CNOVon 06-07-2025 CNOV Normal [facility] Albumin SerPl-mCncon 025 Albumin [Mass/Vol] 3.9 g/dL Normal 3.9-4.9 [facility] Comment on above: Order Comment: Speci men Type: BLOOD SPECIMENOrdering Facility: [facility] Address: [address] [place] [address] Performed By: #### 1 9123-9, 3016-3, 34038-2, 1751-05 ####[facility] LABCLIA [id number] [place] [address] [place] Basic metabolic 2000 panelon 06-06-2025 Anion gap [Moles/Vol] 16 mmol/L High 8-15 [facility] Comment on above: Order Comment: Speci men Type: BLOOD SPECIMENOrdering Facility: [facility] Address: [address] [place] [address] Performed By: #### 1 9123-9, 3016-3, 91392-5, 1751-05 ####[facility] LABCLIA [id number] [place] [address] [place] Calcium [Mass/Vol] 10.4 mg/dL High 8.5-10.2 [facility] Comment on above: Order Comment: Speci men Type: BLOOD SPECIMENOrdering Facility: [facility] Address: [address] [place] [address] Performed By: #### 1 9123-9, 3016-3, 65495-6, 1751-05 ####[facility] LABCLIA [id number] [place] [address] [place] Chloride [Moles/Vol] 98 mmol/L Normal 98-107 [facility] Comment on above: Order Comment: Speci men Type: BLOOD SPECIMENOrdering Facility: [facility] Address: [address] [place] [address] Performed By: #### 1 9123-9, 3016-3, 77688-7, 1757 ####[facility] LABCLIA [id number] [place] [id number] [place] CO2 [Moles/Vol] 26 mmol/L Normal 22-30 [facility] Comment on above: Order Comment: Speci men Type: BLOOD SPECIMENOrdering Facility: [facility] Address: [address] [place] [address] Performed By: #### 1 9123-9, 3016-3, 01943-4, 7 ####[facility] LABIA [id number] [place] [address] [place] Creatinine [Mass/Vol] 2.94 mg/dL High 0.58-0.96 [facility] Comment on above: Order Comment: Speci men Type: BLOOD SPECIMENOrdering Facility: [facility] Address: [address] [place] [address] Performed By: #### 1 9123-9, 3016-3, 99321-1, 1751-05 ####[facility] LABIA [id number] [place] [address] [place] eGFRcr SerPlBld CKD-EPI 2020 15 mL/min/1.73m??? Low >=60 [facility] Comment on above: Order Comment: Speci men Type: BLOOD SPECIMENOrdering Facility: [facility] Address: [address] [place] [address] Result Comment: Aura mated Glomerular Filtration Rate [...] accurately reflect actual GFR. Performed By: #### 1 9123-9, 3015-3, 41981-6, 1751-05 ####[facility] LABCLIA [id number] [facility] [address] [address] [place] Glucose [Mass/Vol] 128 mg/dL High 74-99 [facility] Comment on above: Order Comment: My flannery Type: BLOOD SPECIMENOrdering Facility: [facility] Address: [address] [place] [address] Result Comment: The [place] Diabetes Association (ADA) provides guidance for cutoff values for fasting glucose and random glucose. The ADA defines fasting as no caloric intake for at least 8 hours. Fasting plasma glucose results between 100 to 125 mg/dL indicate increased risk for diabetes (prediabetes).Fasting plasma glucose results greater than or equal to 126 mg/dL meet the criteria for diagnosis of diabetes. In the absence of unequivocal hyperglycemia, results should be confirmed by repeat testing. In a patient with classic symptoms of hyperglycemia or hyperglycemic crisis, random plasma glucose results greater than or equal to 200 mg/dL meet the criteria for diagnosis of diabetes.Reference: Standards of Medical Care in Diabetes 2016, [place] [employer] Association. Diabetes Care. 2016.39(Suppl 1). Performed By: #### 1 9123-9, 3015-3, 10853-3, 1751-05 ####[facility] LABCLIA [id number] [facility] [address] [address] [place] Potassium [Moles/Vol] 4.8 mmol/L Normal 3.7-5.1 [facility] Comment on above: Order Comment: My flannery Type: BLOOD SPECIMENOrdering Facility: [facility] Address: [address] [place] [address] Performed By: #### 1 9123-9, 3015-3, 53211-3, 1751-05 ####[facility] LABCLIA [id number] [facility] [address] [address] [place] Sodium [Moles/Vol] 140 mmol/L Normal 136-144 [facility] Comment on above: Order Comment: Speci men Type: BLOOD SPECIMENOrdering Facility: [facility] Address: [address] [place] [address] Performed By: #### 1 9123-9, 3016-3, 26216-1, 1757 ####[facility] LABCLIA [id number] [place] [address] [place] Urea nitrogen [Mass/Vol] 75 mg/dL High 7- [facility] Comment on above: Order Comment: Speci men Type: BLOOD SPECIMENOrdering Facility: [facility] Address: [address] [place] [address] Performed By: #### 1 9123-9, 3016-3, 44346-7, 1751-05 ####[facility] LABCLIA [id number] [place] [address] [place] CBC W Auto Differential pane l (Bld)on 06-06-2025 Basophils (Bld) [#/Vol] 0.14 10*3/uL High <0.11 [facility] Comment on above: Order Comment: Speci men Type: BLOOD SPECIMENOrdering Facility: [facility] Address: [address] [place] [address] Performed By: #### 5 7021-8 ####[facility] LABCLIA [id number] [place] [address] [place] Basophils/100 WBC (Bld) 1.6 % Normal [facility] Comment on above: Order Comment: Speci men Type: BLOOD SPECIMENOrdering Facility: [facility] Address: [address] [place] [address] Performed By: #### 5 7021-8 ####[facility] LABCLIA [id number] [place] [id number] [place] Differential cell count method Nom (Bld) Auto Normal [facility] Comment on above: Order Comment: Speci men Type: BLOOD SPECIMENOrdering Facility: [facility] Address: [address] [place] [address] Performed By: #### 5 7021-8 ####[facility] LABCLIA [id number] [place] [address] [place] Eosinophils (Bld) [#/Vol] 0.33 10*3/uL Normal <0.46 [facility] Comment on above: Order Comment: Speci men Type: BLOOD SPECIMENOrdering Facility: [facility] Address: [address] [place] [address] Performed By: #### 5 7021-8 ####[facility] LABCLIA [id number] [place] [address] [place] Eosinophils/100 WBC (Bld) 3.7 % Normal [facility] Comment on above: Order Comment: Speci men Type: BLOOD SPECIMENOrdering Facility: [facility] Address: [address] [place] [address] Performed By: #### 5 7021-8 ####[facility] LABCLIA [id number] [place] [address] [place] Erythrocyte distribution width (RBC) [Ratio] 16.7 % High 11.5-15.0 [facility] Comment on above: Order Comment: Speci men Type: BLOOD SPECIMENOrdering Facility: [facility] Address: [address] [place] [address] Performed By: #### 5 7021-8 ####[facility] LABCLIA [id number] [place] [address] [place] Hematocrit (Bld) [Volume fraction] 35.9 % Low 36.0-46.0 [facility] Comment on above: Order Comment: Speci men Type: BLOOD SPECIMENOrdering Facility: [facility] Address: [address] [place] [address] Performed By: #### 5 7021-8 ####[facility] LABCLIA [id number] [place] [address] [place] Hemoglobin (Bld) [Mass/Vol] 11.7 g/dL Normal 11.5-15.5 [facility] Comment on above: Order Comment: Speci men Type: BLOOD SPECIMENOrdering Facility: [facility] Address: [address] [place] [address] Performed By: #### 5 7021-8 ####[facility] LABCLIA [id number] [place] [address] [place] Immature granulocytes (Bld) [#/Vol] 0.06 10*3/uL Normal <0.10 [facility] Comment on above: Order Comment: Speci men Type: BLOOD SPECIMENOrdering Facility: [facility] Address: [address] [place] [address] Performed By: #### 5 7021-8 ####[facility] LABCLIA [id number] [place] [address] [place] Immature granulocytes/100 WBC (Bld) 0.7 % Normal [facility] Comment on above: Order Comment: Speci men Type: BLOOD SPECIMENOrdering Facility: [facility] Address: [address] [place] [address] Performed By: #### 5 7021-8 ####[facility] LABCLIA [id number] [place] [address] [place] Lymphocytes (Bld) [#/Vol] 1.32 10*3/uL Normal 1.00-4.00 [facility] Comment on above: Order Comment: Speci men Type: BLOOD SPECIMENOrdering Facility: [facility] Address: [address] [place] [address] Performed By: #### 5 7021-8 ####[facility] LABCLIA [id number] [place] [address] [place] Lymphocytes/100 WBC (Bld) 15.0 % Normal [facility] Comment on above: Order Comment: Speci men Type: BLOOD SPECIMENOrdering Facility: [facility] Address: [address] [place] [address] Performed By: #### 5 7021-8 ####[facility] LABIA [id number] [place] [address] [place] MCH (RBC) [Entitic mass] 30.4 pg Normal 26.0-34.0 [facility] Comment on above: Order Comment: Speci men Type: BLOOD SPECIMENOrdering Facility: [facility] Address: [address] [place] [address] Performed By: #### 5 7021-8 ####[facility] LABIA [id number] [place] [address] [place] MCHC (RBC) [Mass/Vol] 32.6 g/dL Normal 30.5-36.0 [facility] Comment on above: Order Comment: Speci men Type: BLOOD SPECIMENOrdering Facility: [facility] Address: [address] [place] [address] Performed By: #### 5 7021-8 ####[facility] LABIA [id number] [place] [address] [place] MCV (RBC) [Entitic vol] 93.2 fL Normal 80.0-100.0 [facility] Comment on above: Order Comment: Speci men Type: BLOOD SPECIMENOrdering Facility: [facility] Address: [address] [place] [address] Performed By: #### 5 7021-8 ####[facility] LABIA [id number] [place] [address] [place] Monocytes (Bld) [#/Vol] 0.70 10*3/uL Normal <0.87 [facility] Comment on above: Order Comment: Speci men Type: BLOOD SPECIMENOrdering Facility: [facility] Address: [address] [place] [address] Performed By: #### 5 7021-8 ####[facility] LABCLIA [id number] [place] [id number] [place] Monocytes/100 WBC (Bld) 7.9 % Normal [facility] Comment on above: Order Comment: Speci men Type: BLOOD SPECIMENOrdering Facility: [facility] Address: [address] [place] [address] Performed By: #### 5 7021-8 ####[facility] LABCLIA [id number] [place] [address] [place] Neutrophils (Bld) [#/Vol] 6.26 10*3/uL Normal 1.45-7.50 [facility] Comment on above: Order Comment: Speci men Type: BLOOD SPECIMENOrdering Facility: [facility] Address: [address] [place] [address] Performed By: #### 5 7021-8 ####[facility] LABCLIA [id number] [place] [address] [place] Neutrophils/100 WBC (Bld) 71.1 % Normal [facility] Comment on above: Order Comment: Speci men Type: BLOOD SPECIMENOrdering Facility: [facility] Address: [address] [place] [address] Performed By: #### 5 7021-8 ####[facility] LABCLIA [id number] [place] [address] [place] Nucleated RBC (Bld) [#/Vol] 10*3/uL Normal <0.01 [facility] Comment on above: Order Comment: Speci men Type: BLOOD SPECIMENOrdering Facility: [facility] Address: [address] [place] [address] Performed By: #### 5 7021-8 ####[facility] LABCLIA [id number] [place] [id number] [place] Nucleated RBC/100 WBC (Bld) [Ratio] 0.0 /100 WBC Normal [facility] Comment on above: Order Comment: Speci men Type: BLOOD SPECIMENOrdering Facility: [facility] Address: [address] [place] [address] Performed By: #### 5 7021-8 ####[facility] LABIA [id number] [place] [id number] [place] Platelet mean volume (Bld) [Entitic vol] 10.6 fL Normal 9.0-12.7 [facility] Comment on above: Order Comment: Speci men Type: BLOOD SPECIMENOrdering Facility: [facility] Address: [address] [place] [address] Performed By: #### 5 7021-8 ####[facility] LABIA [id number] [place] [address] [place] Platelets (Bld) [#/Vol] 572 10*3/uL High 150-400 [facility] Comment on above: Order Comment: Speci men Type: BLOOD SPECIMENOrdering Facility: [facility] Address: [address] [place] [address] Performed By: #### 5 7021-8 ####[facility] LABIA [id number] [place] [address] [place] RBC (Bld) [#/Vol] 3.85 10*6/uL Low 3.90-5.20 [facility] Comment on above: Order Comment: Speci men Type: BLOOD SPECIMENOrdering Facility: [facility] Address: [address] [place] [address] Performed By: #### 5 7021-8 ####[facility] LABIA [id number] [place] [address] [place] WBC (Bld) [#/Vol] 8.81 10*3/uL Normal 3.70-11.00 [facility] Comment on above: Order Comment: Speci men Type: BLOOD SPECIMENOrdering Facility: [facility] Address: [address] [place] [address] Performed By: #### 5 7021-8 ####[facility] LABIA [id number] [place] [address] [place] HbA1c (Bld)on 06-06-2025 Average glucose Estimated from glycated hemoglobin (Bld) [Mass/Vol] 103 mg/dL Normal [facility] Comment on above: Order Comment: Speci men Type: BLOOD SPECIMENOrdering Facility: [facility] Address: [address] [place] [address] Result Comment: eAG: (Estimated average glucose) is a calculated value from HgbA1c and is operations support representative of the average blood glucose level in the last 2-3 month period. Performed By: #### 5 5454-3 ####[facility] [id number] [address] STATES OF [facility] HbA1c (Bld) [Mass fraction] 5.2 % Normal 4.3-5.6 [facility] Comment on above: Order Comment: My flannery Type: BLOOD SPECIMENOrdering Facility: [facility] Address: [address] [place] [address] Result Comment: [place] Diabetes Association guidelines indicate that patients with HgbA1c in the range 5.7-6.4% are at increased risk for development of diabetes, and intervention by lifestyle modification may be beneficial. HgbA1c greater or equal to 6.5% is considered diagnostic of diabetes. Performed By: #### 5 5454-3 ####[facility] LAB[facility] [id number] [place] [id number] [place] Magnesium SerPl-mCncon 06-06 Magnesium [Mass/Vol] 2.4 mg/dL High 1.7-2.3 [facility] Comment on above: Order Comment: My flannery Type: BLOOD SPECIMENOrdering Facility: [facility] Address: [address] [place] [address] Performed By: #### 1 9123-9, 3016-3, 34627-0, 1757 ####[facility] LABCLIA [id number] [place] [id number] [place] Phosphate SerPl-mCncon 06-06 Phosphate [Mass/Vol] 4.4 mg/dL Normal 2.7-4.8 [facility] Comment on above: Order Comment: Speci men Type: BLOOD SPECIMENOrdering Facility: [facility] Address: [address] [place] [address] Performed By: #### 2 777-1 ####[facility] LABCLIA [id number] [place] [address] [place] TSH SerPl-aCncon 06-06-2025 TSH Qn 4.330 m[IU]/L High 0.270-4.20 0 [facility] Comment on above: Order Comment: Speci men Type: BLOOD SPECIMENOrdering Facility: [facility] Address: [address] [place] [address] Performed By: #### 1 9123-9, 3016-3, 79499-6, 1751-05 ####[facility] LABIA [id number] [place] [id number] [place] CNPNon 05-29-2025 CNPN Normal [facility] CNPNon 05-28-2025 CNPN Normal [facility] CNPTOUTREACHon 05-28-2025 CNPTOUTREACH Normal [facility] Basic metabolic 2000 panelon 05-27-2025 Anion gap [Moles/Vol] 14 mmol/L Normal 8-15 [facility] Comment on above: Order Comment: Speci men Type: BLOOD SPECIMENOrdering Facility: [facility] Address: [address] [place] [address] Performed By: #### 1 9123-9, 88951-4 ####[facility] LABCLIA [id number] [place] [id number] [place] Calcium [Mass/Vol] 9.3 mg/dL Normal 8.5-10.2 [facility] Comment on above: Order Comment: Speci men Type: BLOOD SPECIMENOrdering Facility: [facility] Address: [address] [place] [address] Performed By: #### 1 9123-9, 35291-7 ####[facility] LABCLIA [id number] [facility] [address] [facility] AVENUEDES[facility] [place] [id number] [place] Chloride [Moles/Vol] 93 mmol/L Low 98-107 [facility] Comment on above: Order Comment: Speci men Type: BLOOD SPECIMENOrdering Facility: [facility] Address: [address] [place] [address] Performed By: #### 1 9123-9, ####[facility] LABCLIA [id number] [place] [address] [place] CO2 [Moles/Vol] 28 mmol/L Normal 22-30 [facility] Comment on above: Order Comment: Speci men Type: BLOOD SPECIMENOrdering Facility: [facility] Address: [address] [place] [address] Performed By: #### 1 9123-9, 71049-3 ####[facility] LABCLIA [id number] [place] [address] [place] Creatinine [Mass/Vol] 2.17 mg/dL High 0.58-0.96 [facility] Comment on above: Order Comment: Speci men Type: BLOOD SPECIMENOrdering Facility: [facility] Address: [address] [place] [address] Performed By: #### 1 9123-9, 93272-2 ####[facility] LABCLIA [id number] [place] [id number] [place] Creatinine and Glomerular filtration rate.predicted panel (S/P/Bld) 22 mL/min/1.73m??? Low >=60 [facility] Comment on above: Order Comment: Speci men Type: BLOOD SPECIMENOrdering Facility: [facility] Address: [address] [place] [address] Result Comment: Aura mated Glomerular Filtration Rate [...] accurately reflect actual GFR. Performed By: #### 1 9123-9, 43348-5 ####[facility] LABIA [id number] [place] [id number] [place] Glucose [Mass/Vol] 127 mg/dL High 74-99 [facility] Comment on above: Order Comment: My flannery Type: BLOOD SPECIMENOrdering Facility: [facility] Address: [address] [place] [address] Result Comment: The [place] Diabetes Association (ADA) provides guidance for cutoff values for fasting glucose and random glucose. The ADA defines fasting as no caloric intake for at least 8 hours. Fasting plasma glucose results between 100 to 125 mg/dL indicate increased risk for diabetes (prediabetes).Fasting plasma glucose results greater than or equal to 126 mg/dL meet the criteria for diagnosis of diabetes. In the absence of unequivocal hyperglycemia, results should be confirmed by repeat testing. In a patient with classic symptoms of hyperglycemia or hyperglycemic crisis, random plasma glucose results greater than or equal to 200 mg/dL meet the criteria for diagnosis of diabetes.Reference: Standards of Medical Care in Diabetes 2016, [place] Diabetes Association. Diabetes Care. 2016.39(Suppl 1). Performed By: #### 1 9123-9, 37366-8 ####[facility] LABIA [id number] [address] [address] [place] Potassium [Moles/Vol] 4.2 mmol/L Normal 3.7-5.1 [facility] Comment on above: Order Comment: My flannery Type: BLOOD SPECIMENOrdering Facility: [facility] Address: [address] [place] [address] Performed By: #### 1 9123-9, 61576-1 ####[facility] LABCLIA [id number] [address] [place] [address] [place] Sodium [Moles/Vol] 135 mmol/L Low 136-144 [facility] Comment on above: Order Comment: Speci men Type: BLOOD SPECIMENOrdering Facility: [facility] Address: [address] [place] [address] Performed By: #### 1 9123-9, 30119-8 ####[facility] LABCLIA [id number] [address] [address] [place] Urea nitrogen [Mass/Vol] 54 mg/dL High 7-21 [facility] Comment on above: Order Comment: Speci men Type: BLOOD SPECIMENOrdering Facility: [facility] Address: [address] [place] [address] Performed By: #### 1 9123-9, 10155-3 ####[facility] LABIA [id number] [address] [address] [place] CASE MANAGEMon 05-27-2025 CASE MANAGEM Normal [facility] CNDSon 05-27-2025 CNDS Normal [facility] CNPNon 05-27-2025 CNPN Normal [facility] Magnesium SerPl-mCncon 05-27 Magnesium [Mass/Vol] 2.3 mg/dL Normal 1.7-2.3 [facility] Comment on above: Order Comment: Speci men Type: BLOOD SPECIMENOrdering Facility: [facility] Address: [address] [place], [place] [address] Performed By: #### 1 9123-9, 15690-7 ####[facility] LABCLIA [id number] [address] [address] [place] PT EDon 05-27-2025 PT ED Normal [facility] PT ED Normal [facility] Basic metabolic 2000 panelon 05-26-2025 Anion gap [Moles/Vol] 14 mmol/L Normal 8-15 [facility] Comment on above: Order Comment: Speci men Type: BLOOD SPECIMENOrdering Facility: [facility] Address: [address] [place] [address] Performed By: #### 1 9123-9, 43856-2 ####[facility] LABCLIA [id number] [place] [address] [place] Calcium [Mass/Vol] 9.1 mg/dL Normal 8.5-10.2 [facility] Comment on above: Order Comment: Speci men Type: BLOOD SPECIMENOrdering Facility: [facility] Address: [address] [place] [address] Performed By: #### 1 9123-9, 40294-4 ####[facility] LABCLIA [id number] [place] [address] [place] Chloride [Moles/Vol] 93 mmol/L Low 98-107 [facility] Comment on above: Order Comment: Speci men Type: BLOOD SPECIMENOrdering Facility: [facility] Address: [address] [place] [address] Performed By: #### 1 9123-9, 32127-2 ####[facility] LABCLIA [id number] [place] [address] [place] CO2 [Moles/Vol] 26 mmol/L Normal 22-30 [facility] Comment on above: Order Comment: Speci men Type: BLOOD SPECIMENOrdering Facility: [facility] Address: [address] [place] [address] Performed By: #### 1 9123-9, 65684-3 ####[facility] LABCLIA [id number] [place] [id number] [place] Creatinine [Mass/Vol] 1.96 mg/dL High 0.58-0.96 [facility] Comment on above: Order Comment: Speci men Type: BLOOD SPECIMENOrdering Facility: [facility] Address: [address] [place] [address] Performed By: #### 1 9123-9, 69836-1 ####[facility] LABIA [id number] [place] [address] [place] Creatinine and Glomerular filtration rate.predicted panel (S/P/Bld) 25 mL/min/1.73m??? Low >=60 [facility] Comment on above: Order Comment: My flannery Type: BLOOD SPECIMENOrdering Facility: [facility] Address: [address] [place] [address] Result Comment: Aura mated Glomerular Filtration Rate [...] accurately reflect actual GFR. Performed By: #### 1 9123-9, 74238-0 ####[facility] LABIA [id number] [place] [address] [place] Glucose [Mass/Vol] 139 mg/dL High 74-99 [facility] Comment on above: Order Comment: My flanneyr Type: BLOOD SPECIMENOrdering Facility: [facility] Address: [address] [place] [address] Result Comment: The [place] Diabetes Association (ADA) provides guidance for cutoff values for fasting glucose and random glucose. The ADA defines fasting as no caloric intake for at least 8 hours. Fasting plasma glucose results between 100 to 125 mg/dL indicate increased risk for diabetes (prediabetes).Fasting plasma glucose results greater than or equal to 126 mg/dL meet the criteria for diagnosis of diabetes. In the absence of unequivocal hyperglycemia, results should be confirmed by repeat testing. In a patient with classic symptoms of hyperglycemia or hyperglycemic crisis, random plasma glucose results greater than or equal to 200 mg/dL meet the criteria for diagnosis of diabetes.Reference: Standards of Medical Care in Diabetes 2016, [place] Diabetes Association. Diabetes Care. 2016.39(Suppl 1). Performed By: #### 1 9123-9, 09493-6 ####[facility] LABCLIA [id number] [address] [place] [address] [place] Potassium [Moles/Vol] 4.2 mmol/L Normal 3.7-5.1 [facility] Comment on above: Order Comment: Speci men Type: BLOOD SPECIMENOrdering Facility: [facility] Address: [address] [place] [address] Performed By: #### 1 9123-9, 87591-6 ####[facility] LABCLIA [id number] [address] [address] [place] Sodium [Moles/Vol] 133 mmol/L Low 136-144 [facility] Comment on above: Order Comment: Speci men Type: BLOOD SPECIMENOrdering Facility: [facility] Address: [address] [place] [address] Performed By: #### 1 9123-9, 57898-2 ####[facility] LABCLIA [id number] [address] [address] [place] Urea nitrogen [Mass/Vol] 48 mg/dL High 7-21 [facility] Comment on above: Order Comment: Speci men Type: BLOOD SPECIMENOrdering Facility: [facility] Address: [address] [place] [address] Performed By: #### 1 9123-9, 95413-5 ####[facility] LABCLIA [id number] [address] [place] [address] [place] CBC panel Auto (Bld)on 05-26 Erythrocyte distribution width (RBC) [Ratio] 16.8 % High 11.5-15.0 [facility] Comment on above: Order Comment: Speci men Type: BLOOD SPECIMENOrdering Facility: [facility] Address: [address] [place] [address] Performed By: #### 5 8410-2 ####[facility] LABCLIA [id number] [place] [address] [place] Hematocrit (Bld) [Volume fraction] 25.9 % Low 36.0-46.0 [facility] Comment on above: Order Comment: Speci men Type: BLOOD SPECIMENOrdering Facility: [facility] Address: [address] [place] [address] Performed By: #### 5 8410-2 ####[facility] LABIA [id number] [place] [address] [place] Hemoglobin (Bld) [Mass/Vol] 8.1 g/dL Low 11.5-15.5 [facility] Comment on above: Order Comment: Speci men Type: BLOOD SPECIMENOrdering Facility: [facility] Address: [address] [place] [address] Performed By: #### 5 8410-2 ####[facility] LABIA [id number] [place] [address] [place] MCH (RBC) [Entitic mass] 28.3 pg Normal 26.0-34.0 [facility] Comment on above: Order Comment: Speci men Type: BLOOD SPECIMENOrdering Facility: [facility] Address: [address] [place] [address] Performed By: #### 5 8410-2 ####[facility] LABIA [id number] [place] [address] [place] MCHC (RBC) [Mass/Vol] 31.3 g/dL Normal 30.5-36.0 [facility] Comment on above: Order Comment: Speci men Type: BLOOD SPECIMENOrdering Facility: [facility] Address: [address] [place] [address] Performed By: #### 5 8410-2 ####[facility] LABIA [id number] [place] [address] [place] MCV (RBC) [Entitic vol] 90.6 fL Normal 80.0-100.0 [facility] Comment on above: Order Comment: Speci men Type: BLOOD SPECIMENOrdering Facility: [facility] Address: [address] [place] [address] Performed By: #### 5 8410-2 ####[facility] LABCLIA [id number] [address] [address] [place] Nucleated RBC (Bld) [#/Vol] 10*3/uL Normal <0.01 [facility] Comment on above: Order Comment: Speci men Type: BLOOD SPECIMENOrdering Facility: [facility] Address: [address] [place] [address] Performed By: #### 5 8410-2 ####[facility] LABIA [id number] [place] [address] [place] Platelet mean volume (Bld) [Entitic vol] 10.2 fL Normal 9.0-12.7 [facility] Comment on above: Order Comment: Speci men Type: BLOOD SPECIMENOrdering Facility: [facility] Address: [address] [place] [address] Performed By: #### 5 8410-2 ####[facility] LABIA [id number] [place] [address] [place] Platelets (Bld) [#/Vol] 311 10*3/uL Normal 150-400 [facility] Comment on above: Order Comment: Speci men Type: BLOOD SPECIMENOrdering Facility: [facility] Address: [address] [place] [address] Performed By: #### 5 8410-2 ####[facility] LABIA [id number] [place] [address] [place] RBC (Bld) [#/Vol] 2.86 10*6/uL Low 3.90-5.20 [facility] Comment on above: Order Comment: Speci men Type: BLOOD SPECIMENOrdering Facility: [facility] Address: [address] [place] [address] Performed By: #### 5 8410-2 ####[facility] LABCLIA [id number] [place] [id number] [place] WBC (Bld) [#/Vol] 12.35 10*3/uL High 3.70-11.00 [facility] Comment on above: Order Comment: Speci men Type: BLOOD SPECIMENOrdering Facility: [facility] Address: [address] [place] [address] Performed By: #### 5 8410-2 ####[facility] LABCLIA [id number] [place] [id number] [place] MEDICAL EMERon 05-26-2025 MEDICAL ALISON Normal [facility] Magnesium SerPl-mCncon 05-26 Magnesium [Mass/Vol] 2.2 mg/dL Normal 1.7-2.3 [facility] Comment on above: Order Comment: Speci men Type: BLOOD SPECIMENOrdering Facility: [facility] Address: [address] [place] [address] Performed By: #### 1 9123-9, 04430-3 ####[facility] LABIA [id number] [place] [id number] [place] Basic metabolic 2000 panelon 05-25-2025 Anion gap [Moles/Vol] 16 mmol/L High 8-15 [facility] Comment on above: Order Comment: Speci men Type: BLOOD SPECIMENOrdering Facility: [facility] Address: [address] [place], [place] [address] Performed By: #### 1 9123-9, 57581-4 ####[facility] LABIA [id number] [place] [id number] [place] Calcium [Mass/Vol] 9.2 mg/dL Normal 8.5-10.2 [facility] Comment on above: Order Comment: Speci men Type: BLOOD SPECIMENOrdering Facility: [facility] Address: [address] [place] [address] Performed By: #### 1 9123-9, 21539-6 ####[facility] LABCLIA [id number] [place] [id number] [place] Chloride [Moles/Vol] 93 mmol/L Low 98-107 [facility] Comment on above: Order Comment: Speci men Type: BLOOD SPECIMENOrdering Facility: [facility] Address: [address] [place] [address] Performed By: #### 1 9123-9, 51302-6 ####[facility] LABCLIA [id number] [place] [id number] [place] CO2 [Moles/Vol] 27 mmol/L Normal 22-30 [facility] Comment on above: Order Comment: Speci men Type: BLOOD SPECIMENOrdering Facility: [facility] Address: [address] [place] [address] Performed By: #### 1 9123-9, 24497-0 ####[facility] LABIA [id number] [place] [address] [place] Creatinine [Mass/Vol] 1.83 mg/dL High 0.58-0.96 [facility] Comment on above: Order Comment: Speci men Type: BLOOD SPECIMENOrdering Facility: [facility] Address: [address] [place] [address] Performed By: #### 1 9123-9, 77779-6 ####[facility] LABIA [id number] [place] [id number] [place] Creatinine and Glomerular filtration rate.predicted panel (S/P/Bld) 27 mL/min/1.73m??? Low >=60 [facility] Comment on above: Order Comment: Speci men Type: BLOOD SPECIMENOrdering Facility: [facility] Address: [address] [place] [address] Result Comment: Aura mated Glomerular Filtration Rate [...] accurately reflect actual GFR. Performed By: #### 1 9123-9, 02920-7 ####[facility] LABCLIA [id number] [place] [id number] [place] Glucose [Mass/Vol] 126 mg/dL High 74-99 [facility] Comment on above: Order Comment: Speci men Type: BLOOD SPECIMENOrdering Facility: [facility] Address: [address] [place] [address] Result Comment: The [place] Diabetes Association (ADA) provides guidance for cutoff values for fasting glucose and random glucose. The ADA defines fasting as no caloric intake for at least 8 hours. Fasting plasma glucose results between 100 to 125 mg/dL indicate increased risk for diabetes (prediabetes).Fasting plasma glucose results greater than or equal to 126 mg/dL meet the criteria for diagnosis of diabetes. In the absence of unequivocal hyperglycemia, results should be confirmed by repeat testing. In a patient with classic symptoms of hyperglycemia or hyperglycemic crisis, random plasma glucose results greater than or equal to 200 mg/dL meet the criteria for diagnosis of diabetes.Reference: Standards of Medical Care in Diabetes 2016, [place] [employer] Association. Diabetes Care. 2016.39(Suppl 1). Performed By: #### 1 9123-9, 46037-5 ####[facility] LABCLIA [id number] [address] [address] [place] Potassium [Moles/Vol] 4.2 mmol/L Normal 3.7-5.1 [facility] Comment on above: Order Comment: Speci men Type: BLOOD SPECIMENOrdering Facility: [facility] Address: [address] [place] [address] Performed By: #### 1 9123-9, 50533-7 ####[facility] LABCLIA [id number] [address] [address] [place] Sodium [Moles/Vol] 136 mmol/L Normal 136-144 [facility] Comment on above: Order Comment: Speci men Type: BLOOD SPECIMENOrdering Facility: [facility] Address: [address] [place] [address] Performed By: #### 1 9123-9, 00483-2 ####[facility] LABCLIA [id number] [place] [address] [place] Urea nitrogen [Mass/Vol] 39 mg/dL High 7-21 [facility] Comment on above: Order Comment: Speci men Type: BLOOD SPECIMENOrdering Facility: [facility] Address: [address] [place] [address] Performed By: #### 1 9123-9, 32125-7 ####[facility] LABIA [id number] [place] [address] [place] CASE MANAGEMon 05-25-2025 CASE MANAGEM Normal [facility] CBC W Auto Differential pane l (Bld)on 05-25-2025 Basophils (Bld) [#/Vol] 0.10 10*3/uL Normal <0.11 [facility] Comment on above: Order Comment: Speci men Type: BLOOD SPECIMENOrdering Facility: [facility] Address: [address] [place] [address] Performed By: #### 5 7021-8, 75778-8 ####[facility] LABCLIA [id number] [place] [id number] [place] Basophils/100 WBC (Bld) 0.7 % Normal [facility] Comment on above: Order Comment: Speci men Type: BLOOD SPECIMENOrdering Facility: [facility] Address: [address] [place] [address] Performed By: #### 5 7021-8, 05108-0 ####[facility] LABCLIA [id number] [place] [id number] [place] Differential cell count method Nom (Bld) Auto Normal [facility] Comment on above: Order Comment: Speci men Type: BLOOD SPECIMENOrdering Facility: [facility] Address: [address] [place] [address] Performed By: #### 5 7021-8, 14280-3 ####[facility] LABCLIA [id number] [facility] [place] [address] [place] Eosinophils (Bld) [#/Vol] 0.13 10*3/uL Normal <0.46 [facility] Comment on above: Order Comment: Speci men Type: BLOOD SPECIMENOrdering Facility: [facility] Address: [address] [place] [address] Performed By: #### 5 7021-8, 58373-9 ####[facility] LABCLIA [id number] [place] [address] [place] Eosinophils/100 WBC (Bld) 0.9 % Normal [facility] Comment on above: Order Comment: Speci men Type: BLOOD SPECIMENOrdering Facility: [facility] Address: [address] [place] [address] Performed By: #### 5 7021-8, 58973-1 ####[facility] LABCLIA [id number] [place] [address] [place] Immature granulocytes (Bld) [#/Vol] 0.07 10*3/uL Normal <0.10 [facility] Comment on above: Order Comment: Speci men Type: BLOOD SPECIMENOrdering Facility: [facility] Address: [address] [place] [address] Performed By: #### 5 7021-8, 75681-7 ####[facility] LABCLIA [id number] [facility] AVENUEL[facility] [place] [address] [place] Immature granulocytes/100 WBC (Bld) 0.5 % Normal [facility] Comment on above: Order Comment: Speci men Type: BLOOD SPECIMENOrdering Facility: [facility] Address: [address] [place] [address] Performed By: #### 5 7021-8, 07903-2 ####[facility] LABCLIA [id number] [place] [address] [place] Lymphocytes (Bld) [#/Vol] 0.89 10*3/uL Low 1.00-4.00 [facility] Comment on above: Order Comment: Speci men Type: BLOOD SPECIMENOrdering Facility: [facility] Address: [address] [place] [address] Performed By: #### 5 7021-8, 78513-7 ####[facility] LABCLIA [id number] [place] [address] [place] Lymphocytes/100 WBC (Bld) 6.5 % Normal [facility] Comment on above: Order Comment: Speci men Type: BLOOD SPECIMENOrdering Facility: [facility] Address: [address] [place] [address] Performed By: #### 5 7021-8, 34312-8 ####[facility] LABCLIA [id number] [place] [address] [place] Monocytes (Bld) [#/Vol] 1.37 10*3/uL High <0.87 [facility] Comment on above: Order Comment: Speci men Type: BLOOD SPECIMENOrdering Facility: [facility] Address: [address] [place] [address] Performed By: #### 5 7021-8, 04769-4 ####[facility] LABCLIA [id number] [place] [address] [place] Monocytes/100 WBC (Bld) 10.0 % Normal [facility] Comment on above: Order Comment: Speci men Type: BLOOD SPECIMENOrdering Facility: [facility] Address: [address] [place] [address] Performed By: #### 5 7021-8, 68572-4 ####[facility] LABCLIA [id number] [place] [id number] [place] Neutrophils (Bld) [#/Vol] 11.18 10*3/uL High 1.45-7.50 [facility] Comment on above: Order Comment: Speci men Type: BLOOD SPECIMENOrdering Facility: [facility] Address: [address] [place] [address] Performed By: #### 5 7021-8, 28628-9 ####[facility] LABCLIA [id number] [place] [address] [place] Neutrophils/100 WBC (Bld) 81.4 % Normal [facility] Comment on above: Order Comment: Speci men Type: BLOOD SPECIMENOrdering Facility: [facility] Address: [address] [place] [address] Performed By: #### 5 7021-8, 21858-8 ####[facility] LABCLIA [id number] [place] [id number] [place] CBC panel Auto (Bld)on 05-25 Erythrocyte distribution width (RBC) [Ratio] 16.2 % High 11.5-15.0 [facility] Comment on above: Order Comment: Speci men Type: BLOOD SPECIMENOrdering Facility: [facility] Address: [address] [place] [address] Performed By: #### 5 7021-8, 00519-2 ####[facility] LABCLIA [id number] [place] [address] [place] Hematocrit (Bld) [Volume fraction] 28.4 % Low 36.0-46.0 [facility] Comment on above: Order Comment: Speci men Type: BLOOD SPECIMENOrdering Facility: [facility] Address: [address] [place] [address] Performed By: #### 5 7021-8, 96391-4 ####[facility] LABIA [id number] [place] [address] [place] Hemoglobin (Bld) [Mass/Vol] 8.7 g/dL Low 11.5-15.5 [facility] Comment on above: Order Comment: Speci men Type: BLOOD SPECIMENOrdering Facility: [facility] Address: [address] [place] [address] Performed By: #### 5 7021-8, 33746-2 ####[facility] LABIA [id number] [place] [address] [place] MCH (RBC) [Entitic mass] 28.2 pg Normal 26.0-34.0 [facility] Comment on above: Order Comment: Speci men Type: BLOOD SPECIMENOrdering Facility: [facility] Address: [address] [place] [address] Performed By: #### 5 7021-8, 36277-4 ####[facility] [id number] [place] [address] [place] MCHC (RBC) [Mass/Vol] 30.6 g/dL Normal 30.5-36.0 [facility] Comment on above: Order Comment: Speci men Type: BLOOD SPECIMENOrdering Facility: [facility] Address: [address] [place] [address] Performed By: #### 5 7021-8, 69392-5 ####[facility] [id number] [place] [address] [place] MCV (RBC) [Entitic vol] 92.2 fL Normal 80.0-100.0 [facility] Comment on above: Order Comment: Speci men Type: BLOOD SPECIMENOrdering Facility: [facility] Address: [address] [place] [address] Performed By: #### 5 7021-8, 66098-5 ####[facility] LABIA [id number] [address] [address] [place] Nucleated RBC (Bld) [#/Vol] 10*3/uL Normal <0.01 [facility] Comment on above: Order Comment: Speci men Type: BLOOD SPECIMENOrdering Facility: [facility] Address: [address] [place] [address] Performed By: #### 5 7021-8, 35613-0 ####[facility] LABIA [id number] [place] [address] [place] Platelet mean volume (Bld) [Entitic vol] 10.1 fL Normal 9.0-12.7 [facility] Comment on above: Order Comment: Speci men Type: BLOOD SPECIMENOrdering Facility: [facility] Address: [address] [place] [address] Performed By: #### 5 7021-8, 76751-7 ####[facility] LABIA [id number] [place] [address] [place] Platelets (Bld) [#/Vol] 323 10*3/uL Normal 150-400 [facility] Comment on above: Order Comment: Speci men Type: BLOOD SPECIMENOrdering Facility: [facility] Address: [address] [place] [address] Performed By: #### 5 7021-8, 86292-3 ####[facility] LABIA [id number] [address], [place] [address] [place] RBC (Bld) [#/Vol] 3.08 10*6/uL Low 3.90-5.20 [facility] Comment on above: Order Comment: Speci men Type: BLOOD SPECIMENOrdering Facility: [facility] Address: [address] [place] [address] Performed By: #### 5 7021-8, 38954-3 ####[facility] LABCLIA [id number] [address] [id number] [address] [place] WBC (Bld) [#/Vol] 13.77 10*3/uL High 3.70-11.00 [facility] Comment on above: Order Comment: Speci men Type: BLOOD SPECIMENOrdering Facility: [facility] Address: [address] [place] [address] Performed By: #### 5 7021-8, 15429-3 ####[facility] LABCLIA [id number] [place] [address] [place] MEDICAL EMERon 05-25-2025 MEDICAL ALISON Normal [facility] Magnesium SerPl-mCncon 05-25 Magnesium [Mass/Vol] 1.9 mg/dL Normal 1.7-2.3 [facility] Comment on above: Order Comment: Speci men Type: BLOOD SPECIMENOrdering Facility: [facility] Address: [address] [place] [address] Performed By: #### 1 9123-9, 23906-4 ####[facility] LABCLIA [id number] [place] [address] [place] TYPE + SCREENon 05-25-2025 ABO O Normal [facility] Comment on above: Order Comment: Speci men Type: BLOOD SPECIMENOrdering Facility: [facility] Address: [address] [place] [address] Performed By: #### T SCR ####[facility] BLOOD BANKCLIA [id number] [place] [address] [place] Rh Nom (Bld) Positive Normal [facility] Comment on above: Order Comment: Speci men Type: BLOOD SPECIMENOrdering Facility: [facility] Address: [address] [place] [address] Performed By: #### T SCR ####[facility] B[facility]OD BANKCLIA [id number] [place] [address] [place] TYPE AND SCREEN EXPIRATION 05/28/2025 23:59 Normal [facility] Comment on above: Order Comment: Speci men Type: BLOOD SPECIMENOrdering Facility: [facility] Address: [address] [place] [address] Performed By: #### T SCR ####[facility] BLOOD [facility] [id number] [place] [address] [place] URINALYSIS, REFLEX MICROSCOP ICon 05-25-2025 Bacteria LM.HPF (Urine sed) [#/Area] Negative Normal Negative [facility] Comment on above: Order Comment: Speci men Type: URINE SPECIMENOrdering Facility: [facility] Address: [address] [place] [address] Performed By: #### L [id number] ####[facility] LABCLIA [id number] [place] [address] [place] Bilirubin Ql (U) Negative Normal Negative [facility] Comment on above: Order Comment: Speci men Type: URINE SPECIMENOrdering Facility: [facility] Address: [address] [place] [address] Performed By: #### L [id number] ####[facility] LABCLIA [id number] [place] [address] [place] Clarity (Unsp spec) Clear Normal Clear [facility] Comment on above: Order Comment: Speci men Type: URINE SPECIMENOrdering Facility: [facility] Address: [address] [place] [address] Performed By: #### L [id number] ####[facility] LABCLIA [id number] [place] [address] [place] Color (U) Yellow Normal Yellow [facility] Comment on above: Order Comment: Speci men Type: URINE SPECIMENOrdering Facility: [facility] Address: [address] [place] [address] Performed By: #### L [id number] ####[facility] LABCLIA [id number] [place] [address] [place] Epithelial cells LM.HPF (Urine sed) [#/Area] None Seen Normal [facility] Comment on above: Order Comment: Speci men Type: URINE SPECIMENOrdering Facility: [facility] Address: [address] [place] [address] Performed By: #### L [id number] ####[facility] LABCLIA [id number] [place] [address] [place] Glucose Test strip (U) [Mass/Vol] 3+ Abnormal Negative [facility] Comment on above: Order Comment: Speci men Type: URINE SPECIMENOrdering Facility: [facility] Address: [address] [place] [address] Performed By: #### L [id number] ####[facility] LABCLIA [id number] [place] [address] [place] Hemoglobin Ql (U) Negative Normal Negative [facility] Comment on above: Order Comment: Speci men Type: URINE SPECIMENOrdering Facility: [facility] Address: [address] [place] [address] Performed By: #### L [id number] ####[facility] LABCLIA [id number] [place] [address] [place] Hyaline casts (Urine sed) [#/Area] 4-10 /LPF Abnormal 0 /LPF [facility] Comment on above: Order Comment: Speci men Type: URINE SPECIMENOrdering Facility: [facility] Address: [address] [place] [address] Performed By: #### L [id number] ####[facility] LABCLIA [id number] [address] [place] Ketones Ql (U) Negative Normal Negative [facility] Comment on above: Order Comment: Speci men Type: URINE SPECIMENOrdering Facility: [facility] Address: [address] [place] [address] Performed By: #### L [id number] ####[facility] LABCLIA [id number] [place] [address] [place] Leukocyte esterase Test strip Ql (U) Negative Normal Negative [facility] Comment on above: Order Comment: Speci men Type: URINE SPECIMENOrdering Facility: [facility] Address: [address] [place] [address] Performed By: #### L [id number] ####[facility] LABCLIA [id number] [place] [address] [place] Nitrite Ql (U) Negative Normal Negative [facility] Comment on above: Order Comment: Speci men Type: URINE SPECIMENOrdering Facility: [facility] Address: [address] [place] [address] Performed By: #### L [id number] ####[facility] LABIA [id number] [place] [address] [place] pH (U) 5.5 [pH] Normal <8.5 [facility] Comment on above: Order Comment: Speci men Type: URINE SPECIMENOrdering Facility: [facility] Address: [address] [place] [address] Performed By: #### L [id number] ####[facility] LABIA [id number] [place] [address] [place] Protein (U) [Mass/Vol] 1+ Abnormal Negative Cl [facility] Comment on above: Order Comment: Speci men Type: URINE SPECIMENOrdering Facility: [facility] Address: [address] [place] [address] Performed By: #### L [id number] ####[facility] LABIA [id number] [place] [address] [place] RBC LM.HPF (Urine sed) [#/Area] 0-2 /HPF Normal 0-2 /HPF [facility] Comment on above: Order Comment: Speci men Type: URINE SPECIMENOrdering Facility: [facility] Address: [address] [place] [address] Performed By: #### L [id number] ####[facility] [id number] [place] [address] [place] Specific gravity (U) [Rel density] 1.021 Normal 1.005-1.03 0 [facility] Comment on above: Order Comment: Speci men Type: URINE SPECIMENOrdering Facility: [facility] Address: [address] [place] [address] Performed By: #### L [id number] ####[facility] [id number] [place] [address] [place] Urobilinogen Ql (U) 0.2 EU/dL Normal 0.2-1.0 EU/dL [facility] Comment on above: Order Comment: Speci men Type: URINE SPECIMENOrdering Facility: [facility] Address: [address] [place] [address] Performed By: #### L [id number] ####[facility] [id number] [place] [address] [place] WBC LM.HPF (Urine sed) [#/Area] 0-5 /HPF Normal 0-5 /HPF [facility] Comment on above: Order Comment: Speci men Type: URINE SPECIMENOrdering Facility: [facility] Address: [address] [place] [address] Performed By: #### L [id number] ####[facility] [id number] [place] [id number] [place] XR CHEST 1V FRONTAL PORTon 0 05-25-2025 XR CHEST 1V FRONTAL PORT Normal [facility] Basic metabolic 2000 panelon 05-24-2025 Anion gap [Moles/Vol] 11 mmol/L Normal 8-15 [facility] Comment on above: Order Comment: Speci men Type: BLOOD SPECIMENOrdering Facility: [facility] Address: [address] [place] [address] Performed By: #### 2 4320-2, ####[facility] LABCLIA [id number] [facility] [address] [facility] [address] [id number] [address] [place] Calcium [Mass/Vol] 9.3 mg/dL Normal 8.5-10.2 [facility] Comment on above: Order Comment: Speci men Type: BLOOD SPECIMENOrdering Facility: [facility] Address: [address] [place] [address] Performed By: #### 2 4320-12, ####[facility] LABCLIA [id number] [facility] [address] [place] [address] [place] Chloride [Moles/Vol] 95 mmol/L Low 98-107 [facility] Comment on above: Order Comment: Speci men Type: BLOOD SPECIMENOrdering Facility: [facility] Address: [address] [place] [address] Performed By: #### 2 4320-12, ####[facility] LABCLIA [id number] [facility]UEL[facility] CENTERK [address] [place] [address] [place] CO2 [Moles/Vol] 32 mmol/L High 22-30 [facility] Comment on above: Order Comment: Speci men Type: BLOOD SPECIMENOrdering Facility: [facility] Address: [address] [place], [place] [address] Performed By: #### 2 4320-12, ####[facility] LABCLIA [id number] [facility] [address] [id number], [place] [address] [place] Creatinine [Mass/Vol] 1.79 mg/dL High 0.58-0.96 [facility] Comment on above: Order Comment: Speci men Type: BLOOD SPECIMENOrdering Facility: [facility] Address: [address] [place], [place] [address] Performed By: #### 2 2, ####[facility] LABCLIA [id number] [facility] [address] [place] Creatinine and Glomerular filtration rate.predicted panel (S/P/Bld) 28 mL/min/1.73m??? Low >=60 [facility] Comment on above: Order Comment: My flannery Type: BLOOD SPECIMENOrdering Facility: [facility] Address: [address] [place] [address] Result Comment: Aura mated Glomerular Filtration Rate [...] reflect actual GFR. Performed By: #### 2 4321-2, ####[facility] LABCLIA [id number] [place] [address] [place] Glucose [Mass/Vol] 131 mg/dL High 74-99 [facility] Comment on above: Order Comment: My flannery Type: BLOOD SPECIMENOrdering Facility: [facility] Address: [address] [place] [address] Result Comment: The [place] [employer] (ADA) provides guidance for cutoff values for fasting glucose and random glucose. The ADA defines fasting as no caloric intake for at least 8 hours. Fasting plasma glucose results between 100 to 125 mg/dL indicate increased risk for diabetes (prediabetes).Fasting plasma glucose results greater than or equal to 126 mg/dL meet the criteria for diagnosis of diabetes. In the absence of unequivocal hyperglycemia, results should be confirmed by repeat testing. In a patient with classic symptoms of hyperglycemia or hyperglycemic crisis, random plasma glucose results greater than or equal to 200 mg/dL meet the criteria for diagnosis of diabetes.Reference: Standards of Medical Care in Diabetes 2016, [place] [employer]. Diabetes Care. 2016.39(Suppl 1). Performed By: #### 2 4321-2, 44629-4 ####[facility] LABCLIA [id number] [place] [id number] [place] Potassium [Moles/Vol] 3.7 mmol/L Normal 3.7-5.1 [facility] Comment on above: Order Comment: Speci men Type: BLOOD SPECIMENOrdering Facility: [facility] Address: [address] [place], [place] [address] Performed By: #### 2 4321-2, ####[facility] LABCLIA [id number] [facility] [place]ENT[id number] [address] [place] Sodium [Moles/Vol] 138 mmol/L Normal 136-144 [facility] Comment on above: Order Comment: Speci men Type: BLOOD SPECIMENOrdering Facility: [facility] Address: [address] [place] [address] Performed By: #### 2 4321-2, ####[facility] LABCLIA [id number] [place] [id number] [place] Urea nitrogen [Mass/Vol] 39 mg/dL High 7-21 [facility] Comment on above: Order Comment: Speci men Type: BLOOD SPECIMENOrdering Facility: [facility] Address: [address] [place], [place] [address] Performed By: #### 2 4321-2, ####[facility] LABCLIA [id number] [facility] [place] [address] [place] [address] [place] CBC panel Auto (Bld)on 05-24 Erythrocyte distribution width (RBC) [Ratio] 15.9 % High 11.5-15.0 [facility] Comment on above: Order Comment: Speci men Type: BLOOD SPECIMENOrdering Facility: [facility] Address: [address] [place] [id number] Performed By: #### 5 8410-2 ####[facility] LABCLIA [id number] [facility] [address] [place] [address] [place] Hematocrit (Bld) [Volume fraction] 26.8 % Low 36.0-46.0 [facility] Comment on above: Order Comment: Speci men Type: BLOOD SPECIMENOrdering Facility: [facility] Address: [address] [place] [address] Performed By: #### 5 8410-2 ####[facility] [id number] [place] [address] [place] Hemoglobin (Bld) [Mass/Vol] 8.4 g/dL Low 11.5-15.5 [facility] Comment on above: Order Comment: Speci men Type: BLOOD SPECIMENOrdering Facility: [facility] Address: [address] [place] [address] Performed By: #### 5 8410-2 ####[facility] [id number] [place] [address] [place] MCH (RBC) [Entitic mass] 28.6 pg Normal 26.0-34.0 [facility] Comment on above: Order Comment: Speci men Type: BLOOD SPECIMENOrdering Facility: [facility] Address: [address] [place] [address] Performed By: #### 5 8410-2 ####[facility] [id number] [place] [address] [place] MCHC (RBC) [Mass/Vol] 31.3 g/dL Normal 30.5-36.0 [facility] Comment on above: Order Comment: Speci men Type: BLOOD SPECIMENOrdering Facility: [facility] Address: [address] [place] [address] Performed By: #### 5 8410-2 ####[facility] [id number] [place] [address] [place] MCV (RBC) [Entitic vol] 91.2 fL Normal 80.0-100.0 [facility] Comment on above: Order Comment: Speci men Type: BLOOD SPECIMENOrdering Facility: [facility] Address: [address] [place] [address] Performed By: #### 5 8410-2 ####[facility] LABCLIA [id number] [address] [place] [address] [place] Nucleated RBC (Bld) [#/Vol] 10*3/uL Normal <0.01 [facility] Comment on above: Order Comment: Speci men Type: BLOOD SPECIMENOrdering Facility: [facility] Address: [address] [place] [address] Performed By: #### 5 8410-2 ####[facility] LABIA [id number] [address], [place] [address] [place] Platelet mean volume (Bld) [Entitic vol] 10.4 fL Normal 9.0-12.7 [facility] Comment on above: Order Comment: Speci men Type: BLOOD SPECIMENOrdering Facility: [facility] Address: [address] [place] [address] Performed By: #### 5 8410-2 ####[facility] LABIA [id number] [place] [address] [place] Platelets (Bld) [#/Vol] 305 10*3/uL Normal 150-400 [facility] Comment on above: Order Comment: Speci men Type: BLOOD SPECIMENOrdering Facility: [facility] Address: [address] [place] [address] Performed By: #### 5 8410-2 ####[facility] LABIA [id number] [address], [place] [address] [place] RBC (Bld) [#/Vol] 2.94 10*6/uL Low 3.90-5.20 [facility] Comment on above: Order Comment: Speci men Type: BLOOD SPECIMENOrdering Facility: [facility] Address: [address] [place] [address] Performed By: #### 5 8410-2 ####[facility] LABIA [id number] [address], [facility]95 [place] WBC (Bld) [#/Vol] 10.38 10*3/uL Normal 3.70-11.00 [facility] Comment on above: Order Comment: Speci men Type: BLOOD SPECIMENOrdering Facility: [facility] Address: [address] [place] [address] Performed By: #### 5 8410-2 ####[facility] LABCLIA [id number] [place] [address] [place] Magnesium SerPl-mCncon 05-24 Magnesium [Mass/Vol] 2.0 mg/dL Normal 1.7-2.3 [facility] Comment on above: Order Comment: Speci men Type: BLOOD SPECIMENOrdering Facility: [facility] Address: [address] [place] [address] Performed By: #### 2 4321-2, 85105-4 ####[facility] LABCLIA [id number] [address] [place] POTASSIUMon 05-24-2025 Potassium [Moles/Vol] 3.9 mmol/L Normal 3.7-5.1 [facility] Comment on above: Order Comment: Speci men Type: BLOOD SPECIMENOrdering Facility: [facility] Address: [address] [place] [address] Performed By: #### K 1 ####[facility] LABCLIA [id number] [place] [address] [place] Basic metabolic 2000 panelon 05-23-2025 Anion gap [Moles/Vol] 13 mmol/L Normal 8-15 [facility] Comment on above: Order Comment: Speci men Type: BLOOD SPECIMENOrdering Facility: [facility] Address: [address] [place] [address] Performed By: #### 1 9123-9, 17209-2 ####[facility] LABCLIA [id number] [place] [address] [place] Calcium [Mass/Vol] 8.9 mg/dL Normal 8.5-10.2 [facility] Comment on above: Order Comment: Speci men Type: BLOOD SPECIMENOrdering Facility: [facility] Address: [address] [place], [place] [address] Performed By: #### 1 9123-9, 00671-3 ####[facility] LABCLIA [id number] [address] [address] [facility] H[facility]ITALLID AVENUEDESK [id number] [place], [place] [address] [place] Chloride [Moles/Vol] 96 mmol/L Low 98-107 [facility] Comment on above: Order Comment: Speci men Type: BLOOD SPECIMENOrdering Facility: [facility] Address: [address] [place] [address] Performed By: #### 1 9123-9, ####[facility] LABCLIA [id number] [facility] [place] [place] [address] [place] CO2 [Moles/Vol] 30 mmol/L Normal 22-30 [facility] Comment on above: Order Comment: Speci men Type: BLOOD SPECIMENOrdering Facility: [facility] Address: [address] [place] [address] Performed By: #### 1 9123-9, 64233-2 ####[facility] LABCLIA [id number] [facility] [place] [place] [address] [place] Creatinine [Mass/Vol] 1.79 mg/dL High 0.58-0.96 [facility] Comment on above: Order Comment: Speci men Type: BLOOD SPECIMENOrdering Facility: [facility] Address: [address] [place], [place] [address] Performed By: #### 1 9123-9, 41961-1 ####[facility] LABCLIA [id number] [facility] [place] [id number] [place] Creatinine and Glomerular filtration rate.predicted panel (S/P/Bld) 28 mL/min/1.73m??? Low >=60 [facility] Comment on above: Order Comment: Speci men Type: BLOOD SPECIMENOrdering Facility: [facility] Address: [address] [place] [address] Result Comment: Aura mated Glomerular Filtration Rate [...] accurately reflect actual GFR. Performed By: #### 1 9123-9, 22569-7 ####[facility] [id number] [place] [address] [place] Glucose [Mass/Vol] 106 mg/dL High 74-99 [facility] Comment on above: Order Comment: My flannery Type: BLOOD SPECIMENOrdering Facility: [facility] Address: [address] [place] [address] Result Comment: The [place] Diabetes [employer] (ADA) provides guidance for cutoff values for fasting glucose and random glucose. The ADA defines fasting as no caloric intake for at least 8 hours. Fasting plasma glucose results between 100 to 125 mg/dL indicate increased risk for diabetes (prediabetes).Fasting plasma glucose results greater than or equal to 126 mg/dL meet the criteria for diagnosis of diabetes. In the absence of unequivocal hyperglycemia, results should be confirmed by repeat testing. In a patient with classic symptoms of hyperglycemia or hyperglycemic crisis, random plasma glucose results greater than or equal to 200 mg/dL meet the criteria for diagnosis of diabetes.Reference: Standards of Medical Care in Diabetes 2016, [place] [employer]. Diabetes Care. 2016.39(Suppl 1). Performed By: #### 1 9123-9, 87233-1 ####[facility] [id number] [place] [address] [place] Potassium [Moles/Vol] 3.4 mmol/L Low 3.7-5.1 [facility] Comment on above: Order Comment: My [facility] Type: BLOOD SPECIMENOrdering Facility: [facility] Address: [address] [place] [address] Performed By: #### 1 9123-9, 54236-8 ####[facility] LABCLIA [id number] [address] [place] [address] [place] Sodium [Moles/Vol] 139 mmol/L Normal 136-144 [facility] Comment on above: Order Comment: Speci men Type: BLOOD SPECIMENOrdering Facility: [facility] Address: [address] [place] [address] Performed By: #### 1 9123-9, 53862-4 ####[facility] LABCLIA [id number] [address] [place] [address] [place] Urea nitrogen [Mass/Vol] 40 mg/dL High 7-21 [facility] Comment on above: Order Comment: Speci men Type: BLOOD SPECIMENOrdering Facility: [facility] Address: [address] [place] [address] Performed By: #### 1 9123-9, 10358-7 ####[facility] LABCLIA [id number] [address] [place] [address] [place] CARD CATH DIAGNOSTICon 05-23 CARD CATH DIAGNOSTIC Normal [facility] CASE MANAGEMon 05-23-2025 CASE MANAGEM Normal [facility] CBC panel Auto (Bld)on 05-23 Erythrocyte distribution width (RBC) [Ratio] 15.9 % High 11.5-15.0 [facility] Comment on above: Order Comment: Speci men Type: BLOOD SPECIMENOrdering Facility: [facility] Address: [address] [place] [address] Performed By: #### 5 8410-2 ####[facility] LABIA [id number] [address] [address] [place] Hematocrit (Bld) [Volume fraction] 26.5 % Low 36.0-46.0 [facility] Comment on above: Order Comment: Speci men Type: BLOOD SPECIMENOrdering Facility: [facility] Address: [address] [place] [address] Performed By: #### 5 8410-2 ####[facility] LABIA [id number] [place] [address] [place] Hemoglobin (Bld) [Mass/Vol] 8.0 g/dL Low 11.5-15.5 [facility] Comment on above: Order Comment: Speci men Type: BLOOD SPECIMENOrdering Facility: [facility] Address: [address] [place] [address] Performed By: #### 5 8410-2 ####[facility] LABIA [id number] [place] [address] [place] MCH (RBC) [Entitic mass] 28.0 pg Normal 26.0-34.0 [facility] Comment on above: Order Comment: Speci men Type: BLOOD SPECIMENOrdering Facility: [facility] Address: [address] [place] [address] Performed By: #### 5 8410-2 ####[facility] LABIA [id number] [place] [address] [place] MCHC (RBC) [Mass/Vol] 30.2 g/dL Low 30.5-36.0 [facility] Comment on above: Order Comment: Speci men Type: BLOOD SPECIMENOrdering Facility: [facility] Address: [address] [place] [address] Performed By: #### 5 8410-2 ####[facility] LABIA [id number] [place] [address] [place] MCV (RBC) [Entitic vol] 92.7 fL Normal 80.0-100.0 [facility] Comment on above: Order Comment: Speci men Type: BLOOD SPECIMENOrdering Facility: [facility] Address: [address] [place] [address] Performed By: #### 5 8410-2 ####[facility] LABIA [id number] [place] [address] [place] Nucleated RBC (Bld) [#/Vol] 10*3/uL Normal <0.01 [facility] Comment on above: Order Comment: Speci men Type: BLOOD SPECIMENOrdering Facility: [facility] Address: [address] [place] [address] Performed By: #### 5 8410-2 ####[facility] LABIA [id number] [place] [address] [place] Platelet mean volume (Bld) [Entitic vol] 10.4 fL Normal 9.0-12.7 [facility] Comment on above: Order Comment: Speci men Type: BLOOD SPECIMENOrdering Facility: [facility] Address: [address] [place] [address] Performed By: #### 5 8410-2 ####[facility] LABCLIA [id number] [place] [address] [place] Platelets (Bld) [#/Vol] 276 10*3/uL Normal 150-400 [facility] Comment on above: Order Comment: Speci men Type: BLOOD SPECIMENOrdering Facility: [facility] Address: [address] [place] [address] Performed By: #### 5 8410-2 ####[facility] LABIA [id number] [place] [address] [place] RBC (Bld) [#/Vol] 2.86 10*6/uL Low 3.90-5.20 [facility] Comment on above: Order Comment: Speci men Type: BLOOD SPECIMENOrdering Facility: [facility] Address: [address] [place] [address] Performed By: #### 5 8410-2 ####[facility] LABCLIA [id number] [place] [address] [place] WBC (Bld) [#/Vol] 8.63 10*3/uL Normal 3.70-11.00 [facility] Comment on above: Order Comment: Speci men Type: BLOOD SPECIMENOrdering Facility: [facility] Address: [address] [place] [address] Performed By: #### 5 8410-2 ####[facility] LABCLIA [id number] [address] [address] [place] CONSULTon 05-23-2025 CONSULT Normal [facility] CONSULT PROGon 05-23-2025 CONSULT PROG Normal [facility] Magnesium SerPl-mCncon 05-23 Magnesium [Mass/Vol] 2.0 mg/dL Normal 1.7-2.3 [facility] Comment on above: Order Comment: Speci men Type: BLOOD SPECIMENOrdering Facility: [facility] Address: [address] [place] [address] Performed By: #### 1 9123-9, 23895-0 ####[facility] LABIA [id number] [place] [id number] [place] PT EDon 05-23-2025 PT ED Normal [facility] THERAPY NTon 05-23-2025 THERAPY NT Normal [facility] THERAPY NT Normal [facility] Basic metabolic 2000 panelon 05-22-2025 Anion gap [Moles/Vol] 12 mmol/L Normal 8-15 [facility] Comment on above: Order Comment: Speci men Type: BLOOD SPECIMENOrdering Facility: [facility] Address: [address] [place] [address] Performed By: #### 2 4321-2, 57003-1 ####[facility] LABCLIA [id number] [place] [address] [place] Calcium [Mass/Vol] 8.9 mg/dL Normal 8.5-10.2 [facility] Comment on above: Order Comment: Speci men Type: BLOOD SPECIMENOrdering Facility: [facility] Address: [address] [place] [address] Performed By: #### 2 4322, ####[facility] LABCLIA [id number] [facility] [address] [address] [place] Chloride [Moles/Vol] 99 mmol/L Normal 98-107 [facility] Comment on above: Order Comment: Speci men Type: BLOOD SPECIMENOrdering Facility: [facility] Address: [address] [place] [address] Performed By: #### 2 432-2, ####[facility] LABCLIA [id number] [address] [address] [place] CO2 [Moles/Vol] 28 mmol/L Normal 22-30 [facility] Comment on above: Order Comment: Speci men Type: BLOOD SPECIMENOrdering Facility: [facility] Address: [address] [place] [address] Performed By: #### 2 43211-22, ####[facility] LABCLIA [id number] [place] [address] [place] Creatinine [Mass/Vol] 1.60 mg/dL High 0.58-0.96 [facility] Comment on above: Order Comment: Speci men Type: BLOOD SPECIMENOrdering Facility: [facility] Address: [address] [place] [address] Performed By: #### 2 4322, ####[facility] LABIA [id number] [address] [address] [place] Creatinine and Glomerular filtration rate.predicted panel (S/P/Bld) 31 mL/min/1.73m??? Low >=60 [facility] Comment on above: Order Comment: Speci men Type: BLOOD SPECIMENOrdering Facility: [facility] Address: [address] [place] [address] Result Comment: Aura mated Glomerular Filtration Rate [...] reflect actual GFR. Performed By: #### 2 4320-12, ####[facility] LABCLIA [id number] [address] [address] [place] Glucose [Mass/Vol] 112 mg/dL High 74-99 [facility] Comment on above: Order Comment: Speci men Type: BLOOD SPECIMENOrdering Facility: [facility] Address: [address] [place] [address] Result Comment: The [place] Diabetes [employer] (ADA) provides guidance for cutoff values for fasting glucose and random glucose. The ADA defines fasting as no caloric intake for at least 8 hours. Fasting plasma glucose results between 100 to 125 mg/dL indicate increased risk for diabetes (prediabetes).Fasting plasma glucose results greater than or equal to 126 mg/dL meet the criteria for diagnosis of diabetes. In the absence of unequivocal hyperglycemia, results should be confirmed by repeat testing. In a patient with classic symptoms of hyperglycemia or hyperglycemic crisis, random plasma glucose results greater than or equal to 200 mg/dL meet the criteria for diagnosis of diabetes.Reference: Standards of Medical Care in Diabetes 2016, [place] [employer]. Diabetes Care. 2016.39(Suppl 1). Performed By: #### 2 4320-12, ####[facility] LABCLIA [id number] [address] [address] [place] Potassium [Moles/Vol] 3.7 mmol/L Normal 3.7-5.1 [facility] Comment on above: Order Comment: Speci men Type: BLOOD SPECIMENOrdering Facility: [facility] Address: [address] [place] [address] Performed By: #### 2 4320-12, ####[facility] LABCLIA [id number] [address] [address] [place] Sodium [Moles/Vol] 139 mmol/L Normal 136-144 [facility] Comment on above: Order Comment: Speci men Type: BLOOD SPECIMENOrdering Facility: [facility] Address: [address] [place] [address] Performed By: #### 2 4321-2, ####[facility] LABCLIA [id number] [place] [facility]EL[facility]ENT[facility] [id number], [place] [address] [place] Urea nitrogen [Mass/Vol] 43 mg/dL High 7-21 [facility] Comment on above: Order Comment: Speci men Type: BLOOD SPECIMENOrdering Facility: [facility] Address: [address] [place] [address] Performed By: #### 2 4321-2, ####[facility] LABCLIA [id number] [facility]INICD AVENUELOS ALAMITOS MEDICAL CENTERK [address] [place] [address] [place] CASE MGT INIT ASSESon 2024 CASE MGT INIT ASSES Normal [facility] CBC panel Auto (Bld)on 05-22 Erythrocyte distribution width (RBC) [Ratio] 15.7 % High 11.5-15.0 [facility] Comment on above: Order Comment: Speci men Type: BLOOD SPECIMENOrdering Facility: [facility] Address: [address] [place] [address] Performed By: #### 5 8410-2 ####[facility] LABCLIA [id number] [place] [facility]EN[facility]EL[facility] CENTERK [address] [place] [address] [place] Hematocrit (Bld) [Volume fraction] 22.5 % Low 36.0-46.0 [facility] Comment on above: Order Comment: Speci men Type: BLOOD SPECIMENOrdering Facility: [facility] Address: [address] [place] [address] Performed By: #### 5 8410-2 ####[facility] LABCLIA [id number] [facility] [id number] [address] [place] Hemoglobin (Bld) [Mass/Vol] 7.0 g/dL Low 11.5-15.5 [facility] Comment on above: Order Comment: Speci men Type: BLOOD SPECIMENOrdering Facility: [facility] Address: [address] [place] [address] Performed By: #### 5 8410-2 ####[facility] LABIA [id number] [place] [address] [place] MCH (RBC) [Entitic mass] 28.3 pg Normal 26.0-34.0 [facility] Comment on above: Order Comment: Speci men Type: BLOOD SPECIMENOrdering Facility: [facility] Address: [address] [place] [address] Performed By: #### 5 8410-2 ####[facility] LABIA [id number] [place] [address] [place] MCHC (RBC) [Mass/Vol] 31.1 g/dL Normal 30.5-36.0 [facility] Comment on above: Order Comment: Speci men Type: BLOOD SPECIMENOrdering Facility: [facility] Address: [address] [place] [address] Performed By: #### 5 8410-2 ####[facility] [id number] [place] [address] [place] MCV (RBC) [Entitic vol] 91.1 fL Normal 80.0-100.0 [facility] Comment on above: Order Comment: Speci men Type: BLOOD SPECIMENOrdering Facility: [facility] Address: [address] [place] [address] Performed By: #### 5 8410-2 ####[facility] LABIA [id number] [place] [address] [place] Nucleated RBC (Bld) [#/Vol] 10*3/uL Normal <0.01 [facility] Comment on above: Order Comment: Speci men Type: BLOOD SPECIMENOrdering Facility: [facility] Address: [address] [place], [place] [address] Performed By: #### 5 8410-2 ####[facility] LABCLIA [id number] [place] [address] [place] Platelet mean volume (Bld) [Entitic vol] 10.6 fL Normal 9.0-12.7 [facility] Comment on above: Order Comment: Speci men Type: BLOOD SPECIMENOrdering Facility: [facility] Address: [address] [place] [address] Performed By: #### 5 8410-2 ####[facility] LABCLIA [id number] [place] [address] [place] Platelets (Bld) [#/Vol] 238 10*3/uL Normal 150-400 [facility] Comment on above: Order Comment: Speci men Type: BLOOD SPECIMENOrdering Facility: [facility] Address: [address] [place] [address] Performed By: #### 5 8410-2 ####[facility] LABCLIA [id number] [place] [address] [place] RBC (Bld) [#/Vol] 2.47 10*6/uL Low 3.90-5.20 [facility] Comment on above: Order Comment: Speci men Type: BLOOD SPECIMENOrdering Facility: [facility] Address: [address] [place] [address] Performed By: #### 5 8410-2 ####[facility] LABCLIA [id number] [place] [id number] [place] WBC (Bld) [#/Vol] 6.85 10*3/uL Normal 3.70-11.00 [facility] Comment on above: Order Comment: Speci men Type: BLOOD SPECIMENOrdering Facility: [facility] Address: [address] [place] [address] Performed By: #### 5 8410-2 ####[facility] LABCLIA [id number] [place] [address] [place] CNPTOUTREACHon 05-22-2025 CNPTOUTREACH Normal [facility] CONSULTon 05-22-2025 CONSULT Normal [facility] MONOCLONAL PROT UR W/INTERPo n 05-22-2025 STAFF REVIEW (UMPA) Reviewed by Earnestine Hensley M.D., Ph.D Normal [facility] Comment on above: Order Comment: Speci men Type: URINE SPECIMENOrdering Facility: [facility] Address: [address] [place] [address] Performed By: #### U RMPA ####[facility] LABIA [id number] [place] [address] [place] UMPA RESULT No M protein is identified. Normal No M protein is identified . [facility] Comment on above: Order Comment: Speci men Type: URINE SPECIMENOrdering Facility: [facility] Address: [address] [place] [address] Performed By: #### U RMPA ####[facility] LABIA [id number] [place] [address] [place] Magnesium SerPl-mCncon 05-22 Magnesium [Mass/Vol] 2.0 mg/dL Normal 1.7-2.3 [facility] Comment on above: Order Comment: Speci men Type: BLOOD SPECIMENOrdering Facility: [facility] Address: [address] [place] [address] Performed By: #### 2 4321-2, 07247-5 ####[facility] LABIA [id number] [place] [address] [place] 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 Comment on above: Order Comment: Speci men Type: BLOOD SPECIMENOrdering Facility: [facility] Address: [address] [place] [address] Performed By: #### K 1 ####[facility] LABCLIA [id number] [place] [address] [place] PTT, ANTICOAGULANT THERAPYon 05-22-2025 aPTT Coag (PPP) [Time] 54.4 s High 23.0-32.4 [facility] Comment on above: Order Comment: Speci men Type: BLOOD SPECIMENOrdering Facility: [facility] Address: [address] [place] [address] Performed By: #### P TTAC ####[facility] LABCLIA [id number] [address] [place] aPTT Coag (PPP) [Time] s High 23.0-32.4 [facility] Comment on above: Order Comment: Speci men Type: BLOOD SPECIMENOrdering Facility: [facility] Address: [address] [place] [address] Result Comment: Resu lt rechecked.Sample checked for clot. Performed By: #### P TTAC ####[facility] LABCLIA [id number] [place] [address] [place] Prot/Creat Uron 05-22-2025 Protein/Creatinine (U) [Mass ratio] 0.45 mg/mg High <0.15 [facility] Comment on above: Order Comment: Speci men Type: URINE SPECIMENOrdering Facility: [facility] Address: [address] [place] [address] Result Comment: Adul t Proteinuria Categories:<0.15 mg/mg is considered normal to mildly increased0.15 - 0.50 mg/mg is considered moderately increased>0.50 mg/mg is considered severely increasedKDIGO. (2013). KDIGO 2012 Clinical Practice Guideline for the Evaluation and Management of Chronic Kidney Disease. Official Journal of the International Society of Nephrology, 3(1), 1-150. Performed By: #### 2 890-2 ####[facility] LABIA [id number] [place] [address] [place] Protein/Creatinine (U) [Mass ratio]on 05-22-2025 Creatinine (U) [Mass/Vol] 11.2 mg/dL Low 20.0-300.0 [facility] Comment on above: Order Comment: Speci men Type: URINE SPECIMENOrdering Facility: [facility] Address: [address] [place] [address] Performed By: #### 2 890-2 ####[facility] LABIA [id number] [place] [address] [place] Protein (U) [Mass/Vol] 5 mg/dL Normal 0-20 [facility] Comment on above: Order Comment: Speci men Type: URINE SPECIMENOrdering Facility: [facility] Address: [address] [place] [address] Performed By: #### 2 890-2 ####[facility] [id number] [place] [address] [place] TYPE + SCREENon 05-22-2025 ABO O Normal [facility] Comment on above: Order Comment: Speci men Type: BLOOD SPECIMENOrdering Facility: [facility] Address: [address] [place] [address] Performed By: #### T SCR ####[facility] BLOOD BANKIA [id number] [place] [address] [place] Rh Nom (Bld) Positive Normal [facility] Comment on above: Order Comment: Speci men Type: BLOOD SPECIMENOrdering Facility: [facility] Address: [address] [place] [address] Performed By: #### T SCR ####[facility] BLOOD BANKIA [id number] [place] [address] [place] TYPE AND SCREEN EXPIRATION 05/25/2025 23:59 Normal [facility] Comment on above: Order Comment: Speci men Type: BLOOD SPECIMENOrdering Facility: [facility] Address: [address] [place] [address] Performed By: #### T SCR ####[facility] BLOOD BANKIA [id number] [place] [address] [place] CBC W Auto Differential pane l (Bld)on 05-21-2025 Basophils (Bld) [#/Vol] 0.06 10*3/uL Normal <0.11 [facility] Comment on above: Order Comment: Speci men Type: BLOOD SPECIMENOrdering Facility: [facility] Address: [address] [place] [address] Performed By: #### 5 7021-8 ####[facility] LABCLIA [id number] [address] [place] Basophils/100 WBC (Bld) 0.8 % Normal [facility] Comment on above: Order Comment: Speci men Type: BLOOD SPECIMENOrdering Facility: [facility] Address: [address] [place] [address] Performed By: #### 5 7021-8 ####[facility] LABCLIA [id number] [place] [address] [place] Differential cell count method Nom (Bld) Auto Normal [facility] Comment on above: Order Comment: Speci men Type: BLOOD SPECIMENOrdering Facility: [facility] Address: [address] [place] [address] Performed By: #### 5 7021-8 ####[facility] LABCLIA [id number] [place] [address] [place] Eosinophils (Bld) [#/Vol] 0.18 10*3/uL Normal <0.46 [facility] Comment on above: Order Comment: Speci men Type: BLOOD SPECIMENOrdering Facility: [facility] Address: [address] [place] [address] Performed By: #### 5 7021-8 ####[facility] LABCLIA [id number] [address] [address] [place] Eosinophils/100 WBC (Bld) 2.4 % Normal [facility] Comment on above: Order Comment: Speci men Type: BLOOD SPECIMENOrdering Facility: [facility] Address: [address] [place] [address] Performed By: #### 5 7021-8 ####[facility] LABCLIA [id number] [place] [address] [place] Erythrocyte distribution width (RBC) [Ratio] 15.6 % High 11.5-15.0 [facility] Comment on above: Order Comment: Speci men Type: BLOOD SPECIMENOrdering Facility: [facility] Address: [address] [place] [address] Performed By: #### 5 7021-8 ####[facility] LABCLIA [id number] [place] [address] [place] Hematocrit (Bld) [Volume fraction] 26.8 % Low 36.0-46.0 [facility] Comment on above: Order Comment: Speci men Type: BLOOD SPECIMENOrdering Facility: [facility] Address: [address] [place] [address] Performed By: #### 5 7021-8 ####[facility] LABCLIA [id number] [address] [address] [place] Hemoglobin (Bld) [Mass/Vol] 8.3 g/dL Low 11.5-15.5 [facility] Comment on above: Order Comment: Speci men Type: BLOOD SPECIMENOrdering Facility: [facility] Address: [address] [place] [address] Performed By: #### 5 7021-8 ####[facility] LABCLIA [id number] [address] [place] [address] [place] Immature granulocytes (Bld) [#/Vol] 10*3/uL Normal <0.10 [facility] Comment on above: Order Comment: Speci men Type: BLOOD SPECIMENOrdering Facility: [facility] Address: [address] [place] [address] Performed By: #### 5 7021-8 ####[facility] LABCLIA [id number] [address], [facility] [place] Immature granulocytes/100 WBC (Bld) 0.3 % Normal [facility] Comment on above: Order Comment: Speci men Type: BLOOD SPECIMENOrdering Facility: [facility] Address: [address] [place] [address] Performed By: #### 5 7021-8 ####[facility] LABCLIA [id number] [address], [place] [address] [place] Lymphocytes (Bld) [#/Vol] 0.84 10*3/uL Low 1.00-4.00 [facility] Comment on above: Order Comment: Speci men Type: BLOOD SPECIMENOrdering Facility: [facility] Address: [address] [place] [address] Performed By: #### 5 7021-8 ####[facility] LABCLIA [id number] [place] [address] [place] Lymphocytes/100 WBC (Bld) 11.3 % Normal [facility] Comment on above: Order Comment: Speci men Type: BLOOD SPECIMENOrdering Facility: [facility] Address: [address] [place] [address] Performed By: #### 5 7021-8 ####[facility] LABCLIA [id number] [address] [place] [address] [place] MCH (RBC) [Entitic mass] 29.0 pg Normal 26.0-34.0 [facility] Comment on above: Order Comment: Speci men Type: BLOOD SPECIMENOrdering Facility: [facility] Address: [address] [place] [address] Performed By: #### 5 7021-8 ####[facility] LABIA [id number] [place] [address] [place] MCHC (RBC) [Mass/Vol] 31.0 g/dL Normal 30.5-36.0 [facility] Comment on above: Order Comment: Speci men Type: BLOOD SPECIMENOrdering Facility: [facility] Address: [address] [place] [address] Performed By: #### 5 7021-8 ####[facility] LABIA [id number] [place] [address] [place] MCV (RBC) [Entitic vol] 93.7 fL Normal 80.0-100.0 [facility] Comment on above: Order Comment: Speci men Type: BLOOD SPECIMENOrdering Facility: [facility] Address: [address] [place] [address] Performed By: #### 5 7021-8 ####[facility] LABIA [id number] [place] [address] [place] Monocytes (Bld) [#/Vol] 0.83 10*3/uL Normal <0.87 [facility] Comment on above: Order Comment: Speci men Type: BLOOD SPECIMENOrdering Facility: [facility] Address: [address] [place] [address] Performed By: #### 5 7021-8 ####[facility] LABIA [id number] [place] [address] [place] Monocytes/100 WBC (Bld) 11.2 % Normal [facility] Comment on above: Order Comment: Speci men Type: BLOOD SPECIMENOrdering Facility: [facility] Address: [address] [place] [address] Performed By: #### 5 7021-8 ####[facility] LABCLIA [id number] [address] [address] [place] Neutrophils (Bld) [#/Vol] 5.51 10*3/uL Normal 1.45-7.50 [facility] Comment on above: Order Comment: Speci men Type: BLOOD SPECIMENOrdering Facility: [facility] Address: [address] [place] [address] Performed By: #### 5 7021-8 ####[facility] LABCLIA [id number] [place] [address] [place] Neutrophils/100 WBC (Bld) 74.0 % Normal [facility] Comment on above: Order Comment: Speci men Type: BLOOD SPECIMENOrdering Facility: [facility] Address: [address] [place] [address] Performed By: #### 5 7021-8 ####[facility] LABCLIA [id number] [place] [address] [place] Nucleated RBC (Bld) [#/Vol] 10*3/uL Normal <0.01 [facility] Comment on above: Order Comment: Speci men Type: BLOOD SPECIMENOrdering Facility: [facility] Address: [address] [place] [address] Performed By: #### 5 7021-8 ####[facility] LABCLIA [id number] [place] [address] [place] Nucleated RBC/100 WBC (Bld) [Ratio] 0.0 /100 WBC Normal [facility] Comment on above: Order Comment: Speci men Type: BLOOD SPECIMENOrdering Facility: [facility] Address: [address] [place] [address] Performed By: #### 5 7021-8 ####[facility] LABCLIA [id number] [place] [address] [place] Platelet mean volume (Bld) [Entitic vol] 10.4 fL Normal 9.0-12.7 [facility] Comment on above: Order Comment: Speci men Type: BLOOD SPECIMENOrdering Facility: [facility] Address: [address] [place] [address] Performed By: #### 5 7021-8 ####[facility] LABCLIA [id number] [address] [address] [place] Platelets (Bld) [#/Vol] 280 10*3/uL Normal 150-400 [facility] Comment on above: Order Comment: Speci men Type: BLOOD SPECIMENOrdering Facility: [facility] Address: [address] [place] [address] Performed By: #### 5 7021-8 ####[facility] LABCLIA [id number] [place] [address] [place] RBC (Bld) [#/Vol] 2.86 10*6/uL Low 3.90-5.20 [facility] Comment on above: Order Comment: Speci men Type: BLOOD SPECIMENOrdering Facility: [facility] Address: [address] [place] [address] Performed By: #### 5 7021-8 ####[facility] LABIA [id number] [address] [address] [place] WBC (Bld) [#/Vol] 7.44 10*3/uL Normal 3.70-11.00 [facility] Comment on above: Order Comment: Speci men Type: BLOOD SPECIMENOrdering Facility: [facility] Address: [address] [place] [address] Performed By: #### 5 7021-8 ####[facility] LABIA [id number] [address] [address] [place] CNOVon 05-21-2025 CNOV Normal [facility] CONSULT PROGon 05-21-2025 CONSULT PROG Normal [facility] Comprehensive metabolic 2000 panelon 05-21-2025 Albumin [Mass/Vol] 3.5 g/dL Low 3.9-4.9 [facility] Comment on above: Order Comment: Speci men Type: BLOOD SPECIMENOrdering Facility: [facility] Address: [address] [place] [address] Performed By: #### 3 3762-6, , ####[facility] LABCLIA [id number] [address] [address] [place] ALP [Catalytic activity/Vol] 75 U/L Normal 34-123 [facility] Comment on above: Order Comment: Speci men Type: BLOOD SPECIMENOrdering Facility: [facility] Address: [address] [place] [address] Performed By: #### 3 3762-6, , ####[facility] LABCLIA [id number] [place] [address] [place] ALT [Catalytic activity/Vol] 10 U/L Normal 7-38 [facility] Comment on above: Order Comment: Speci men Type: BLOOD SPECIMENOrdering Facility: [facility] Address: [address] [place] [address] Performed By: #### 3 3762-6, , ####[facility] LABCLIA [id number] [address] [address] [place] Anion gap [Moles/Vol] 11 mmol/L Normal 8-15 [facility] Comment on above: Order Comment: Speci men Type: BLOOD SPECIMENOrdering Facility: [facility] Address: [address] [place] [address] Performed By: #### 3 3762-6, , ####[facility] LABCLIA [id number] [facility] [address] [address] [place] AST [Catalytic activity/Vol] 14 U/L Normal 13-35 [facility] Comment on above: Order Comment: Speci men Type: BLOOD SPECIMENOrdering Facility: [facility] Address: [address] [place], [place] [address] Performed By: #### 3 3762-6, , ####[facility] LABCLIA [id number] [address] [address] [place] Bilirubin [Mass/Vol] 0.4 mg/dL Normal 0.2-1.3 [facility] Comment on above: Order Comment: Speci men Type: BLOOD SPECIMENOrdering Facility: [facility] Address: [address] [place], [place] [address] Performed By: #### 3 3762-6, 75199-9, ####[facility] LABCLIA [id number] [address] [address] [place] Calcium [Mass/Vol] 9.4 mg/dL Normal 8.5-10.2 [facility] Comment on above: Order Comment: Speci men Type: BLOOD SPECIMENOrdering Facility: [facility] Address: [address] [place], [place] [address] Performed By: #### 3 3762-6, , ####[facility] LABCLIA [id number] [address] [address] [place] Chloride [Moles/Vol] 102 mmol/L Normal 98-107 [facility] Comment on above: Order Comment: Speci men Type: BLOOD SPECIMENOrdering Facility: [facility] Address: [address] [place] [address] Performed By: #### 3 3762-6, 28515-3, ####[facility] LABCLIA [id number] [address] [address] [place] CO2 [Moles/Vol] 27 mmol/L Normal 22-30 [facility] Comment on above: Order Comment: Speci men Type: BLOOD SPECIMENOrdering Facility: [facility] Address: [address] [place] [address] Performed By: #### 3 3762-6, 76439-6, ####[facility] LABCLIA [id number] [address] [address] [place] Creatinine [Mass/Vol] 1.54 mg/dL High 0.58-0.96 [facility] Comment on above: Order Comment: Speci men Type: BLOOD SPECIMENOrdering Facility: [facility] Address: [address] [place] [address] Performed By: #### 3 3762-6, 43573-6, ####[facility] LABIA [id number] [place] [address] [place] Creatinine and Glomerular filtration rate.predicted panel (S/P/Bld) 33 mL/min/1.73m??? Low >=60 [facility] Comment on above: Order Comment: My men Type: BLOOD SPECIMENOrdering Facility: [facility] Address: [address] [place] [address] Result Comment: Aura mated Glomerular Filtration Rate [...] accurately reflect actual GFR. Performed By: #### 3 3762-6, 75845-7, ####[facility] LABIA [id number] [address] [address] [place] Glucose [Mass/Vol] 104 mg/dL High 74-99 [facility] Comment on above: Order Comment: Faithi men Type: BLOOD SPECIMENOrdering Facility: [facility] Address: [address] [place] [address] Result Comment: The [place] Diabetes Association (ADA) provides guidance for cutoff values for fasting glucose and random glucose. The ADA defines fasting as no caloric intake for at least 8 hours. Fasting plasma glucose results between 100 to 125 mg/dL indicate increased risk for diabetes (prediabetes).Fasting plasma glucose results greater than or equal to 126 mg/dL meet the criteria for diagnosis of diabetes. In the absence of unequivocal hyperglycemia, results should be confirmed by repeat testing. In a patient with classic symptoms of hyperglycemia or hyperglycemic crisis, random plasma glucose results greater than or equal to 200 mg/dL meet the criteria for diagnosis of diabetes.Reference: Standards of Medical Care in Diabetes 2016, [place] [employer] Association. Diabetes Care. 2016.39(Suppl 1). Performed By: #### 3 3762-6, 52520-6, ####[facility] LABIA [id number] [place] [address] [place] Potassium [Moles/Vol] 3.9 mmol/L Normal 3.7-5.1 [facility] Comment on above: Order Comment: Speci men Type: BLOOD SPECIMENOrdering Facility: [facility] Address: [address] [place] [address] Performed By: #### 3 3762-6, 77794-0, ####[facility] LABIA [id number] [place] [address] [place] Protein [Mass/Vol] 6.7 g/dL Normal 6.3-8.0 [facility] Comment on above: Order Comment: Speci men Type: BLOOD SPECIMENOrdering Facility: [facility] Address: [address] [place] [address] Performed By: #### 3 3762-6, 15423-4, ####[facility] LABIA [id number] [place] [address] [place] Sodium [Moles/Vol] 140 mmol/L Normal 136-144 [facility] Comment on above: Order Comment: Speci men Type: BLOOD SPECIMENOrdering Facility: [facility] Address: [address] [place] [address] Performed By: #### 3 3762-6, 60597-5, 70732-2 ####[facility] LABIA [id number] [address] [place] [address] [place] Urea nitrogen [Mass/Vol] 44 mg/dL High 7-21 [facility] Comment on above: Order Comment: Speci men Type: BLOOD SPECIMENOrdering Facility: [facility] Address: [address] [place] [address] Performed By: #### 3 3762-6, 66914-7, 20976-5 ####[facility] LABIA [id number] [address] [place] [address] [place] ECG COMPLETEon 05-21-2025 ECG COMPLETE Normal [facility] ECG COMPLETE Normal [facility] HISTORY PHYSICALon HISTORY PHYSICAL Normal [facility] IMMUNOFIXATION SCREEN, SERUM on 05-21-2025 MPA RESULT No M protein is identified. Normal No M protein is identified . [facility] Comment on above: Order Comment: Speci men Type: BLOOD SPECIMENOrdering Facility: [facility] Address: [address] [place] [address] Performed By: #### I FES ####[facility] LABIA [id number] [address] [address] [place] STAFF REVIEW (MPA) Reviewed by Earnestine Hensley M.D., Ph.D [facility] Comment on above: Order Comment: Speci men Type: BLOOD SPECIMENOrdering Facility: [facility] Address: [address] [place] [address] Performed By: #### I FES ####[facility] LABIA [id number] [address] [address] [place] KAPPA/FISCHER,FREE,SERon 2024 Immunoglobulin light chains.kappa.free (S) [Mass/Vol] 64.3 mg/L High 3.3-19.4 [facility] Comment on above: Order Comment: Speci men Type: BLOOD SPECIMENOrdering Facility: [facility] Address: [address] [place] [address] Result Comment: Rare ly, increased serum free light chains levels may not be detected or accurately quantified due to prozone phenomenon or in high viscosity samples using this immunoturbidimetric assay. Correlation with other laboratory results and clinical findings is recommended.The Belen Free Light Chain was performed using the Binding Site Optilite immunoturbidimetric method. Result obtained with different assay methods or kits cannot be used interchangeably. Performed By: #### K LFRS ####[facility] LABCLIA [id number] [place] [address] [place] Immunoglobulin light chains.kappa/Immunoglobu susan light chains.lambda (S) [Mass ratio] 1.56 Normal 0.26-1.65 [facility] Comment on above: Order Comment: Speci men Type: BLOOD SPECIMENOrdering Facility: [facility] Address: [address] [place] [address] Performed By: #### K LFRS ####[facility] LABCLIA [id number] [place] [address] [place] Immunoglobulin light chains.lambda.free [Mass/Vol] 41.3 mg/L High 5.7-26.3 [facility] Comment on above: Order Comment: Speci men Type: BLOOD SPECIMENOrdering Facility: [facility] Address: [address] [place] [address] Result Comment: Rare ly, increased serum free light chains levels may not be detected or accurately quantified due to prozone phenomenon or in high viscosity samples using this immunoturbidimetric assay. Correlation with other laboratory results and clinical findings is recommended.The Lambda Free Light Chain was performed using the Binding Site Optilite immunoturbidimetric method. Result obtained with different assay methods or kits cannot be used interchangeably. Performed By: #### K LFRS ####[facility] LABCLIA [id number] [address] [address] [place] Magnesium SerPl-mCncon 05-21 Magnesium [Mass/Vol] 2.1 mg/dL Normal 1.7-2.3 [facility] Comment on above: Order Comment: My flannery Type: BLOOD SPECIMENOrdering Facility: [facility] Address: [address] [place] [address] Performed By: #### 3 3762-6, 50027-5, 46575-7 ####[facility] LABCLIA [id number] [place] [address] [place] NT-proBNP Banner 05-21 Natriuretic peptide.B prohormone N-Terminal [Mass/Vol] 3880 pg/mL High <450 [facility] Comment on above: Order Comment: My flannery Type: BLOOD SPECIMENOrdering Facility: [facility] Address: [address] [place] [address] Performed By: #### 3 3762-6, 80626-9, 01501-1 ####[facility] LABCLIA [id number] [place] [address] [place] PT panel Coag (PPP)on 2024 INR Coag (PPP) [Relative time] 1.2 {INR} Normal 0.9-1.3 [facility] Comment on above: Order Comment: My flannery Type: BLOOD SPECIMENOrdering Facility: [facility] Address: [address] [place] [address] Result Comment: Yarelis min K Antagonist (VKA) Therapeutic Range: INR 2 to 3 (Target INR of 2.5)Note: For patients treated with VKA drugs, such as warfarin, the [place] [employer] 2012 Guideline recommends a therapeutic INR range of 2 to 3 (target INR of 2.5). This recommendation includes high-risk patients with antiphospholipid syndrome with previous arterial or venous thromboembolism, current-generation mechanical or bioprosthetic aortic heart valve replacement.Note: Patients with mechanical aortic valve replacement and additional risk factors for thromboembolic events (atrial fibrillation, previous thromboembolism, LV dysfunction, hypercoagulable conditions) or an older generation mechanical AVR (i.e., ball in-Cage) or any mechanical MVR should have a INR therapeutic range of 2.5 to 3.5 (target INR of 3).Palomott GH, et al. Chest 2012, 141:7S-47SNishimura RA, et al. [facility] 2017, 70: 252-289 Performed By: #### 3 4528-0, 07550-3 ####[facility] LABCLIA [id number] [place] [address] [place] PT Coag (PPP) [Time] 12.7 s Normal 9.7-13.0 [facility] Comment on above: Order Comment: Speci men Type: BLOOD SPECIMENOrdering Facility: [facility] Address: [address] [place] [address] Performed By: #### 3 4528-0, 96603-0 ####[facility] [id number] [place] [address] [place] US CHEST EFFUSION SURVEYon 0 05-21-2025 US CHEST EFFUSION SURVEY Normal [facility] XR CHEST 1V FRONTAL PORTon 0 05-21-2025 XR CHEST 1V FRONTAL PORT Normal [facility] aPTT PPPon 05-21-2025 aPTT Coag (PPP) [Time] 21.2 s Low 23.0-32.4 [facility] Comment on above: Order Comment: Speci men Type: BLOOD SPECIMENOrdering Facility: [facility] Address: [address] [place], [place] [address] [address] Performed By: #### 3 4528-0, 48302-5 ####[facility] LABIA [id number] [place] [id number] [place] GIRMA w/ Reflex Mult Confirmon 05-20-2025 ANTI-DNA (DS)AB TNP Normal [facility] Comment on above: Performed By: #### L 3100.5450 ####[facility] [address] [place], [address] ANTI-SS-A TNP Normal [facility] Comment on above: Performed By: #### L 3100.5450 ####[facility] [address] [place], [address] ANTI-SS-B TNP Normal [facility] Comment on above: Performed By: #### L 3100.5450 ####[facility] [address] [place], [address] CNPNon 05-20-2025 CNPN Normal [facility] Culture, Anaerobic Any Sourc deangelo 05-19-2025 CUAN L LAT LEG No anaerobic bacteria isolated. [facility] Comment on above: Performed By: #### M 100.4001, M100.3000, M100.1999 ####[facility] [address] [place], [address] Wound Cultureon 05-19-2025 WC Normal [facility] Comment on above: Performed By: #### M 100.4001, M100.3000, M1.1999 ####[facility] [address] [place], [address] Anaerobic cultureOrdered By: Ann Slater on 05-15-2025 Bacteria identified Anaer cx Nom (Unsp spec) No anaerobic bacteria isolated. [facility] 05-15-2025 CNPN Normal [facility] CNPTOUTREACHon 05-15-2025 CNPTOUTREACH Normal [facility] Gram Stainon 05-15-2025 GS L LAT LEG Gram Stain No organisms seen Normal [facility] Comment on above: Performed By: #### M 100.4001, M100.3000, M100.1999 ####[facility] [address] [place], [address] Gram stainOrdered By: Ann arce on 05-15-2025 Microscopic observation Gram stain Nom (Unsp spec) [facility] Routine wound cultureOrdered By: Ann Slater on 05-15-2025 Microbial culture, routine Enterobacter cloacae complex Abnormal [facility] Microbial culture, routine Staphylococcus epidermidis Abnormal [facility] Microbial culture, routine Staphylococcus cohnii urealyti Abnormal [facility] History AND Physic ryder 05-15-2025 Wound Ctr History & Physical Normal [facility] Body Fluid Cell Count+Diffon 05-14-2025 MACROPHAGES 37 Normal [facility] Comment on above: Order Comment: The r eference interval(s) and other method performancespecifications are unavailable for this body fluid.Comparison of the result with concentration in the blood,serum, or plasma is recommended. Result Comment: AMENDED REPORT 05/14/253 MACROPHAGES previously reported as: 63 % Performed By: #### M 100.4001, L350.1000, M100.2900, L504.0250, M100.2000, L503.0300, L200.0200, L503.0100 ####[facility] [address] [place], [place], [address] Lymphocytes (Bld) [#/Vol] 32 10*3/uL Normal [facility] Comment on above: Order Comment: The r eference interval(s) and other method performancespecifications are unavailable for this body fluid.Comparison of the result with concentration in the blood,serum, or plasma is recommended. Result Comment: AMENDED REPORT 05/14/251121 LYMPH previously reported as: 58 % Performed By: #### M 100.4001, L350.1000, M100.2900, L504.0250, M100.2000, L503.0300, L200.0200, L503.0100 ####[facility] [address] [place], [place], [address] MESOTHELIAL 2 Normal [facility] Comment on above: Order Comment: The r eference interval(s) and other method performancespecifications are unavailable for this body fluid.Comparison of the result with concentration in the blood,serum, or plasma is recommended. Result Comment: AMENDED REPORT 05/14/252 MESOTHELIAL previously reported as: 4 % Performed By: #### M 100.4001, L350.1000, M100.2900, L504.0250, M100.2000, L503.0300, L200.0200, L503.0100 ####[facility] [address] [place], [address] PMN 29 Normal [facility] Comment on above: Order Comment: The r eference interval(s) and other method performancespecifications are unavailable for this body fluid.Comparison of the result with concentration in the blood,serum, or plasma is recommended. Result Comment: AMENDED REPORT 05/14/25 1122 PMN previously reported as: 35 % Performed By: #### M 100.4001, L350.1000, M100.2900, L504.0250, M100.2000, L503.0300, L200.0200, L503.0100 ####[facility] [address] [place], [address] [facility] 05-13-[facility] Culture, Blood (WB)on 2024 C[facility] Blood cultures x2, f rom two different sites No growth in 5 days. Normal [facility] Comment on above: Performed By: #### M 200.1000 ####[facility] [address] [place], [address] [facility] Normal [facility] Basic metabolic 2000 panelon 05-09-2025 Anion gap [Moles/Vol] 11 mmol/L Normal 8-15 [facility] Comment on above: Order Comment: Speci men Type: BLOOD SPECIMENOrdering Facility: [facility] Address: [address] [place] [address] Performed By: #### 2 4321-2, 71810-8, 2132-9, 2276-4 ####[facility] LABCLIA [id number] [address] [address] [place] Calcium [Mass/Vol] 8.9 mg/dL Normal 8.5-10.2 [facility] Comment on above: Order Comment: Speci men Type: BLOOD SPECIMENOrdering Facility: [facility] Address: [address] [place] [address] Performed By: #### 2 4321-2, 47165-0, 2132-07, 2276-02 ####[facility] LABCLIA [id number] [address] [address] [place] Chloride [Moles/Vol] 102 mmol/L Normal 98-107 [facility] Comment on above: Order Comment: Speci men Type: BLOOD SPECIMENOrdering Facility: [facility] Address: [address] [place], [place] [address] Performed By: #### 2 4321-2, 25487-4, 2132-07, 2276-02 ####[facility] LABCLIA [id number] [place] [id number] [place] CO2 [Moles/Vol] 28 mmol/L Normal 22-30 [facility] Comment on above: Order Comment: Speci men Type: BLOOD SPECIMENOrdering Facility: [facility] Address: [address] [place], [place] [address] Performed By: #### 2 4321-2, 06103-2, 2132-07, 2276-02 ####[facility] LABCLIA [id number] [address] [address] [place] Creatinine [Mass/Vol] 1.31 mg/dL High 0.58-0.96 [facility] Comment on above: Order Comment: Speci men Type: BLOOD SPECIMENOrdering Facility: [facility] Address: [address] [place] [address] Performed By: #### 2 4321-2, 87632-2, 2132-07, 2276-02 ####[facility] LABCLIA [id number] [address] [address] [place] Creatinine and Glomerular filtration rate.predicted panel (S/P/Bld) 40 mL/min/1.73m??? Low >=60 [facility] Comment on above: Order Comment: My flannery Type: BLOOD SPECIMENOrdering Facility: [facility] Address: [address] [place] [address] Result Comment: Aura mated Glomerular Filtration Rate [...] reflect actual GFR. Performed By: #### 2 4321-2, 26887-8, 2132-07, 2276-02 ####[facility] LABIA [id number] [place] [address] [place] Glucose [Mass/Vol] 106 mg/dL High 74-99 [facility] Comment on above: Order Comment: My flannery Type: BLOOD SPECIMENOrdering Facility: [facility] Address: [address] [place] [address] Result Comment: The [place] Diabetes Association (ADA) provides guidance for cutoff values for fasting glucose and random glucose. The ADA defines fasting as no caloric intake for at least 8 hours. Fasting plasma glucose results between 100 to 125 mg/dL indicate increased risk for diabetes (prediabetes).Fasting plasma glucose results greater than or equal to 126 mg/dL meet the criteria for diagnosis of diabetes. In the absence of unequivocal hyperglycemia, results should be confirmed by repeat testing. In a patient with classic symptoms of hyperglycemia or hyperglycemic crisis, random plasma glucose results greater than or equal to 200 mg/dL meet the criteria for diagnosis of diabetes.Reference: Standards of Medical Care in Diabetes 2016, [place] [employer]. Diabetes Care. 2016.39(Suppl 1). Performed By: #### 2 4321-2, 37288-9, 2132-07, 2276-02 ####[facility] LABIA [id number] [address] [address] [place] Potassium [Moles/Vol] 4.7 mmol/L Normal 3.7-5.1 [facility] Comment on above: Order Comment: Speci men Type: BLOOD SPECIMENOrdering Facility: [facility] Address: [address] [place] [address] Performed By: #### 2 4321-2, 04229-0, 2132-07, 2276-02 ####[facility] LABCLIA [id number] [address] [address] [place] Sodium [Moles/Vol] 141 mmol/L Normal 136-144 [facility] Comment on above: Order Comment: Speci men Type: BLOOD SPECIMENOrdering Facility: [facility] Address: [address] [place] [address] Performed By: #### 2 4321-2, 64746-1, 2132-07, 2276-02 ####[facility] LABCLIA [id number] [address] [address] [place] Urea nitrogen [Mass/Vol] 18 mg/dL Normal 7-21 [facility] Comment on above: Order Comment: Speci men Type: BLOOD SPECIMENOrdering Facility: [facility] Address: [address] [place] [address] Performed By: #### 2 4321-2, 80524-3, 2132-07, 2276-02 ####[facility] LABCLIA [id number] [address] [address] [place] CNOVon 05-09-2025 CNOV Normal [facility] Ferritin SerPl-mCncon 2024 Ferritin [Mass/Vol] 263.0 ng/mL High 14.7-205.1 [facility] Comment on above: Order Comment: Speci men Type: BLOOD SPECIMENOrdering Facility: [facility] Address: [address] [place] [address] Performed By: #### 2 4321-2, 32301-5, 2132-07, 2276-02 ####[facility] LABCLIA [id number] [address] [address] [place] Iron and Iron binding capaci ty panelon 05-09-2025 Iron [Mass/Vol] 31 ug/dL Low 41-186 [facility] Comment on above: Order Comment: Speci men Type: BLOOD SPECIMENOrdering Facility: [facility] Address: [address] [place], [place] [address] Performed By: #### 2 4321-2, 40119-0, 9, 2275-4 ####[facility] LABCLIA [id number] [place] [id number] [place] Iron binding capacity [Mass/Vol] 252 ug/dL Normal 232-386 [facility] Comment on above: Order Comment: Speci men Type: BLOOD SPECIMENOrdering Facility: [facility] Address: [address] [place] [address] Performed By: #### 2 4321-2, 89146-5, 9, 2275- ####[facility] LABCLIA [id number] [place] [id number] [place] Iron/TIBC [Molar ratio] 12.3 % Low 15.0-57.0 [facility] Comment on above: Order Comment: Speci men Type: BLOOD SPECIMENOrdering Facility: [facility] Address: [address] [place] [address] Performed By: #### 2 4321-2, 80602-5, 2132-07, 2276-02 ####[facility] LABCLIA [id number] [place] [address] [place] Urine Cultureon 05-09-2025 [facility] Culture exhibits no growth. Normal [facility] Comment on above: Performed By: #### L 400.0001, M100.2200 ####[facility] [address] [place], [address] Vit B12 SerPl-mCncon 025 Cobalamin (Vitamin B12) [Mass/Vol] 1003 pg/mL Normal 232-1245 [facility] Comment on above: Order Comment: Speci men Type: BLOOD SPECIMENOrdering Facility: [facility] Address: [address] [place] [address] Performed By: #### 2 4321-2, 15975-8, 2132-9, 2276-4 ####[facility] LABCLIA [id number] [place] [address] [place] Absolute lymphocyte countOrd ered By: Ras Levy on 05-08-2025 Lymphocytes Auto (Unsp spec) [#/Vol] 0.82 10*3/uL Low 0.83-4.51 [facility] Absolute lymphocyte countOrd ered By: Magdi Thomas on 05-08-2025 Lymphocytes Auto (Unsp spec) [#/Vol] 0.58 10*3/uL Low 0.83-4.51 [facility] Activated partial thrombopla stin time (aPTT) in platelet poor plasma by coagulation aOrdered By: Ras Levy on 05-08-2025 aPTT Coag (PPP) [Time] 33.6 s 24.1-36.2 [facility] Anion gap in Serum or Plasma Ordered By: Ras Levy on 05-08-2025 Anion gap [Moles/Vol] 9 mmol/L 04-04 [facility] Anion gap in Serum or Plasma Ordered By: Magdi Thomas on 05-08-2025 Anion gap [Moles/Vol] 7 mmol/L 04-04 [facility] Automated lymphocyte count a s percentage of total leukocytesOrdered By: Ras Levy on 05-08-2025 Lymphocytes/100 WBC Auto (Unsp spec) 10.9 % Low [facility] Automated lymphocyte count a s percentage of total leukocytesOrdered By: Magdi Thomas on 05-08-2025 Lymphocytes/100 WBC Auto (Unsp spec) 8.4 % Low [facility] BUN/creatinine ratioOrdered By: Ras Levy on 05-08-2025 Urea nitrogen/Creatinine [Mass ratio] 12.8 mg/mg - [facility] BUN/creatinine ratioOrdered By: Magdi Thomas on 05-08-2025 Urea nitrogen/Creatinine [Mass ratio] 12.4 mg/mg 10- [facility] Basic Metabolic Profile (BMP )on 05-08-2025 BUN/CRE 12.4 RATIO Normal - [facility] Comment on above: Performed By: #### L 500.2500, L100.0100 ####[facility] [address] [place], [address] Calcium [Mass/Vol] 8.9 mg/dL Normal 7.6-11.0 [facility] Comment on above: Performed By: #### L 500.2500, L100.0100 ####[facility] [address] [place], [address] Chloride [Moles/Vol] 101 mmol/L Normal 98-108 [facility] Comment on above: Performed By: #### L 500.2500, L100.0100 ####[facility] [address] [place], [address] CO2 [Moles/Vol] 30.5 mmol/L Normal 21.0-32.0 [facility] Comment on above: Performed By: #### L 500.2500, L100.0100 ####[facility] [address] [place], [address] Creatinine [Mass/Vol] 1.36 mg/dL High 0.70-1.20 [facility] Comment on above: Performed By: #### L 500.2500, L100.0100 ####[facility] [address] [place], [address] GAP 7 Normal 5-15 [facility] Comment on above: Performed By: #### L 500.2500, L100.0100 ####[facility] [address] [place], [address] GFR/1.73 sq M.predicted among non-blacks MDRD (S/P/Bld) [Vol rate/Area] 38 mL/min/{1.73_m2} Low >60 [facility] Comment on above: Result Comment: mL/m in/1.73m2 CKD-EPI Creatinine Equation (2020) Performed By: #### L 500.2500, L100.0100 ####[facility] [address] [place], [address] Glucose [Mass/Vol] 139 mg/dL High 70-99 [facility] Comment on above: Performed By: #### L 500.2500, L100.0100 ####[facility] [address] [place], [address] Potassium [Moles/Vol] 4.4 mmol/L Normal 3.3-5.1 [facility] Comment on above: Performed By: #### L 500.2500, L100.0100 ####[facility] [address] [place], [address] Sodium [Moles/Vol] 138 mmol/L Normal 133-145 [facility] Comment on above: Performed By: #### L 500.2500, L100.0100 ####[facility] [address] [place], [address] Urea nitrogen [Mass/Vol] 17 mg/dL Normal 4-19 [facility] Comment on above: Performed By: #### L 500.2500, L100.0100 ####[facility] [address] [place], [address] Basophil percentageOrdered B y: Ras Levy on 05-08-2025 Basophils/100 WBC (Bld) 0.8 % 0-1 [facility] Basophil percentageOrdered B y: Magdi Thomas on 05-08-2025 Basophils/100 WBC (Bld) 0.9 % 0-1 [facility] Bilirubin Test strip Ql (U)O rdered By: Ras Levy on 05-08-2025 Bilirubin Ql (U) Negative Negative [facility] Bilirubin, totalOrdered By: Ras Levy on 05-08-2025 Bilirubin [Mass/Vol] 0.29 mg/dL 0.00-1.30 [facility] Blood cultureOrdered By: Nicky Levy on 05-08-2025 Bacteria identified Cx Nom (Bld) No growth in 5 days. [facility] Bacteria identified Cx Nom (Bld) No growth in 5 days. [facility] CBC W/Diff, Automatedon 04-21 Absolute Lymph 0.82 X10 3/uL Low 0.83-4.51 [facility] Comment on above: Performed By: #### L 500.4050, L100.0100, L503.7505, L503.6005, L300.3900, L300.4310 ####[facility] [address] [place], [address] Absolute Neut 6.0 X10 3/uL Normal 2.0-7.7 [facility] Comment on above: Performed By: #### L 500.4050, L100.0100, L503.7505, L503.6005, L300.3900, L300.4310 ####[facility] [address] [place], [address] Basophils/100 WBC (Bld) 0.8 % Normal 0-1 [facility] Comment on above: Performed By: #### L 500.4050, L100.0100, L503.7505, L503.6005, L300.3900, L300.4310 ####[facility] [address] [place], [address] Eosinophils/100 WBC (Bld) 1.3 % Normal 0-5 [facility] Comment on above: Performed By: #### L 500.4050, L100.0100, L503.7505, L503.6005, L300.3900, L300.4310 ####[facility] [address] [place], [address] Erythrocyte distribution width (RBC) [Ratio] 17.0 % High 11.6-14.6 [facility] Comment on above: Performed By: #### L 500.4050, L100.0100, L503.7505, L503.6005, L300.3900, L300.4310 ####[facility] [address] [place], [address] Hematocrit (Bld) [Volume fraction] 25.9 % Low 37-47 [facility] Comment on above: Performed By: #### L 500.4050, L100.0100, L503.7505, L503.6005, L300.3900, L300.4310 ####[facility] [address] [place], [address] Hemoglobin (Bld) [Mass/Vol] 8.0 g/dL Low 12.0-15.0 [facility] Comment on above: Performed By: #### L 500.4050, L100.0100, L503.7505, L503.6005, L300.3900, L300.4310 ####[facility] [address] [facility] [place], [address] IG% 0.400 Normal 0.0-0.9 [facility] Comment on above: Result Comment: IG% - Immature Granulocytes (promyelocytes, myelocytes andmetamyelocytes) > 1% indicates that a LEFT SHIFT is Present. Performed By: #### L 500.4050, L100.0100, L503.7505, L503.6005, L300.3900, L300.4310 ####[facility] [address] [place], [address] Lymphocytes/100 WBC (Bld) 10.9 % Low 19-41 [facility] Comment on above: Performed By: #### L 500.4050, L100.0100, L503.7505, L503.6005, L300.3900, L300.4310 ####[facility] [address] [place], [address] MCH (RBC) [Entitic mass] 29.6 pg Normal 27.0-32.0 [facility] Comment on above: Performed By: #### L 500.4050, L100.0100, L503.7505, L503.6005, L300.3900, L300.4310 ####[facility] [address] [place], [address] MCHC (RBC) [Mass/Vol] 30.9 g/dL Low 32-36 [facility] Comment on above: Performed By: #### L 500.4050, L100.0100, L503.7505, L503.6005, L300.3900, L300.4310 ####[facility] [address] [place], [address] MCV (RBC) [Entitic vol] 95.9 fL Normal 81-99 [facility] Comment on above: Performed By: #### L 500.4050, L100.0100, L503.7505, L503.6005, L300.3900, L300.4310 ####[facility] [address] [place], [address] Monocytes/100 WBC (Bld) 6.9 % Normal 0-10 [facility] Comment on above: Performed By: #### L 500.4050, L100.0100, L503.7505, L503.6005, L300.3900, L300.4310 ####[facility] [address] [place], [address] Neutrophils/100 WBC (Bld) 79.7 % High 47-70 [facility] Comment on above: Performed By: #### L 500.4050, L100.0100, L503.7505, L503.6005, L300.3900, L300.4310 ####[facility] [address] [place], [address] Nucleated RBC (Bld) [#/Vol] 0 10*3/uL Normal 0-5 [facility] Comment on above: Performed By: #### L 500.4050, L100.0100, L503.7505, L503.6005, L300.3900, L300.4310 ####[facility] [address] [place], [address] Platelet mean volume (Bld) [Entitic vol] 10.3 fL Normal 6.2-12.0 [facility] Comment on above: Performed By: #### L 500.4050, L100.0100, L503.7505, L503.6005, L300.3900, L300.4310 ####[facility] [address] [place], [address] Platelets (Bld) [#/Vol] 273 10*3/uL Normal 150-450 [facility] Comment on above: Performed By: #### L 500.4050, L100.0100, L503.7505, L503.6005, L300.3900, L300.4310 ####[facility] [address] [place], [address] RBC (Bld) [#/Vol] 2.70 10*6/uL Low 4.2-5.4 [facility] Comment on above: Performed By: #### L 500.4050, L100.0100, L503.7505, L503.6005, L300.3900, L300.4310 ####[facility] [address] [place], [address] RDW SD 57.2 fl High 35.1-43.9 [facility] Comment on above: Performed By: #### L 500.4050, L100.0100, L503.7505, L503.6005, L300.3900, L300.4310 ####[facility] [address] [place], [address] WBC (Bld) [#/Vol] 7.5 10*3/uL Normal 4.4-11.0 [facility] Comment on above: Performed By: #### L 500.4050, L100.0100, L503.7505, L503.6005, L300.3900, L300.4310 ####[facility] [address] [place], [address] Absolute Lymph 0.58 X10 3/uL Low 0.83-4.51 [facility] Comment on above: Performed By: #### L 500.2500, L100.0100 ####[facility] [address] [place], [address] Absolute Neut 5.6 X10 3/uL Normal 2.0-7.7 [facility] Comment on above: Performed By: #### L 500.2500, L100.0100 ####[facility] [address] [place], [address] Basophils/100 WBC (Bld) 0.9 % Normal 0-1 [facility] Comment on above: Performed By: #### L 500.2500, L100.0100 ####[facility] [address] [place], [address] Eosinophils/100 WBC (Bld) 1.0 % Normal 0-5 [facility] Comment on above: Performed By: #### L 500.2500, L100.0100 ####[facility] [address] [place], [address] Erythrocyte distribution width (RBC) [Ratio] 16.7 % High 11.6-14.6 [facility] Comment on above: Performed By: #### L 500.2500, L100.0100 ####[facility] [address] [place], [address] Hematocrit (Bld) [Volume fraction] 27.0 % Low 37-47 [facility] Comment on above: Performed By: #### L 500.2500, L100.0100 ####[facility] [address] [place], [address] Hemoglobin (Bld) [Mass/Vol] 8.0 g/dL Low 12.0-15.0 [facility] Comment on above: Performed By: #### L 500.2500, L100.0100 ####[facility] [address] [place], [address] IG% 0.400 Normal 0.0-0.9 [facility] Comment on above: Result Comment: IG% - Immature Granulocytes (promyelocytes, myelocytes andmetamyelocytes) > 1% indicates that a LEFT SHIFT is Present. Performed By: #### L 500.2500, L100.0100 ####[facility] [address] [place], [address] Lymphocytes/100 WBC (Bld) 8.4 % Low 19-41 [facility] Comment on above: Performed By: #### L 500.2500, L100.0100 ####[facility] [address] [place], [address] MCH (RBC) [Entitic mass] 28.5 pg Normal 27.0-32.0 [facility] Comment on above: Performed By: #### L 500.2500, L100.0100 ####[facility] [address] [place], [address] MCHC (RBC) [Mass/Vol] 29.6 g/dL Low 32-36 [facility] Comment on above: Performed By: #### L 500.2500, L100.0100 ####[facility] [address] [place], [address] MCV (RBC) [Entitic vol] 96.1 fL Normal 81-99 [facility] Comment on above: Performed By: #### L 500.2500, L100.0100 ####[facility] [address] [place], [address] Monocytes/100 WBC (Bld) 7.6 % Normal 0-10 [facility] Comment on above: Performed By: #### L 500.2500, L100.0100 ####[facility] [address] [place], [address] Neutrophils/100 WBC (Bld) 81.7 % High 47-70 [facility] Comment on above: Performed By: #### L 500.2500, L100.0100 ####[facility] [address] [place], [address] Nucleated RBC (Bld) [#/Vol] 0 10*3/uL Normal 0-5 [facility] Comment on above: Performed By: #### L 500.2500, L100.0100 ####[facility] [address] [place], [address] Platelet mean volume (Bld) [Entitic vol] 9.7 fL Normal 6.2-12.0 [facility] Comment on above: Performed By: #### L 500.2500, L100.0100 ####[facility] [address] [place], [address] Platelets (Bld) [#/Vol] 281 10*3/uL Normal 150-450 [facility] Comment on above: Performed By: #### L 500.2500, L100.0100 ####[facility] [address] [place], [address] RBC (Bld) [#/Vol] 2.81 10*6/uL Low 4.2-5.4 [facility] Comment on above: Performed By: #### L 500.2500, L100.0100 ####[facility] [address] [place], [address] RDW SD 56.6 fl High 35.1-43.9 [facility] Comment on above: Performed By: #### L 500.2500, L100.0100 ####[facility] [address] [place], [address] WBC (Bld) [#/Vol] 6.9 10*3/uL Normal 4.4-11.0 [facility] Comment on above: Performed By: #### L 500.2500, L100.0100 ####[facility] [address] [place], [address] Carbon dioxide, total [Moles /volume] in Central venous bloodOrdered By: Ras Levy on 05-08-2025 CO2 [Moles/Vol] 29.5 mmol/L 21.0-32.0 [facility] Carbon dioxide, total [Moles /volume] in Central venous bloodOrdered By: Magdi Thomas on 05-08-2025 CO2 [Moles/Vol] 30.5 mmol/L 21.0-32.0 [facility] Cardiology Visit Reporton Cardiology Visit Report Normal [facility] Chest PA and Lateralon 05-08 Chest PA and Lateral Normal [facility] Chloride assayOrdered By: Sherif Levy on 05-08-2025 Chloride [Moles/Vol] 101 mmol/L 98-108 [facility] Chloride assayOrdered By: Ernestine Thomas on 05-08-2025 Chloride [Moles/Vol] 101 mmol/L 98-108 [facility] Comprehensive Metabolic Prof ilon 05-08-2025 Bilirubin [Mass/Vol] 0.29 mg/dL Normal 0.00-1.30 [facility] Comment on above: Performed By: #### L 500.4050, L100.0100, L503.7505, L503.6005, L300.3900, L300.4310 ####[facility] [address] [place], [address] Chloride [Moles/Vol] 101 mmol/L Normal 98-108 [facility] Comment on above: Performed By: #### L 500.4050, L100.0100, L503.7505, L503.6005, L300.3900, L300.4310 ####[facility] [address] [place], [address] CO2 [Moles/Vol] 29.5 mmol/L Normal 21.0-32.0 [facility] Comment on above: Performed By: #### L 500.4050, L100.0100, L503.7505, L503.6005, L300.3900, L300.4310 ####[facility] [address] [place], [address] GAP 9 Normal 5-15 [facility] Comment on above: Performed By: #### L 500.4050, L100.0100, L503.7505, L503.6005, L300.3900, L300.4310 ####[facility] [address] [place], [address] Potassium [Moles/Vol] 4.4 mmol/L Normal 3.3-5.1 [facility] Comment on above: Performed By: #### L 500.4050, L100.0100, L503.7505, L503.6005, L300.3900, L300.4310 ####[facility] [address] [place], [address] Sodium [Moles/Vol] 139 mmol/L Normal 133-145 [facility] Comment on above: Performed By: #### L 500.4050, L100.0100, L503.7505, L503.6005, L300.3900, L300.4310 ####[facility] [address] [place], [address] Albumin [Mass/Vol] 3.2 g/dL Low 3.4-4.8 [facility] Comment on above: Performed By: #### L 500.4050, L100.0100, L503.7505, L503.6005, L300.3900, L300.4310 ####[facility] [address] [place], [address] Albumin/Globulin [Mass ratio] 1.0 {ratio} Normal 0.9-2.4 [facility] Comment on above: Performed By: #### L 500.4050, L100.0100, L503.7505, L503.6005, L300.3900, L300.4310 ####[facility] [address] [place], [address] ALK PHOS 76 U/L Normal 35-104 [facility] Comment on above: Performed By: #### L 500.4050, L100.0100, L503.7505, L503.6005, L300.3900, L300.4310 ####[facility] [address] [place], [address] ALT [Catalytic activity/Vol] 12 U/L Normal <=34 [facility] Comment on above: Performed By: #### L 500.4050, L100.0100, L503.7505, L503.6005, L300.3900, L300.4310 ####[facility] [address] [place], [address] AST [Catalytic activity/Vol] 24 U/L Normal <=31 [facility] Comment on above: Performed By: #### L 500.4050, L100.0100, L503.7505, L503.6005, L300.3900, L300.4310 ####[facility] [address] [place], [address] BUN/CRE 12.8 RATIO Normal 10-20 [facility] Comment on above: Performed By: #### L 500.4050, L100.0100, L503.7505, L503.6005, L300.3900, L300.4310 ####[facility] [address] [place], [address] Calcium [Mass/Vol] 9.0 mg/dL Normal 7.6-11.0 [facility] Comment on above: Performed By: #### L 500.4050, L100.0100, L503.7505, L503.6005, L300.3900, L300.4310 ####[facility] [address] [place], [address] Creatinine [Mass/Vol] 1.30 mg/dL High 0.70-1.20 [facility] Comment on above: Performed By: #### L 500.4050, L100.0100, L503.7505, L503.6005, L300.3900, L300.4310 ####[facility] [address] [place], [address] GFR/1.73 sq M.predicted among non-blacks MDRD (S/P/Bld) [Vol rate/Area] 40 mL/min/{1.73_m2} Low >60 [facility] Comment on above: Result Comment: mL/m in/1.73m2 CKD-EPI Creatinine Equation (2020) Performed By: #### L 500.4050, L100.0100, L503.7505, L503.6005, L300.3900, L300.4310 ####[facility] [address] [place], [address] Globulin (S) [Mass/Vol] 3.1 g/dL Normal 2.2-4.2 [facility] Comment on above: Performed By: #### L 500.4050, L100.0100, L503.7505, L503.6005, L300.3900, L300.4310 ####[facility] [address] [place], [address] Glucose [Mass/Vol] 110 mg/dL High 70-99 [facility] Comment on above: Performed By: #### L 500.4050, L100.0100, L503.7505, L503.6005, L300.3900, L300.4310 ####[facility] [address] [place], [address] T PROT 6.2 g/dL Normal 5.9-8.4 [facility] Comment on above: Performed By: #### L 500.4050, L100.0100, L503.7505, L503.6005, L300.3900, L300.4310 ####[facility] [address] [place], [address] Urea nitrogen [Mass/Vol] 17 mg/dL Normal 4-19 [facility] Comment on above: Performed By: #### L 500.4050, L100.0100, L503.7505, L503.6005, L300.3900, L300.4310 ####[facility] [address] [place], [address] Emergency Department Summary on 05-08-2025 Emergency Department Summary Normal [facility] Eosinophil percentageOrdered By: Ras Levy on 05-08-2025 Eosinophils/100 WBC (Bld) 1.3 % 0-5 [facility] Eosinophil percentageOrdered By: Magdi Thomas on 05-08-2025 Eosinophils/100 WBC (Bld) 1.0 % 0-5 [facility] Erythrocyte distribution wid th ratioOrdered By: Ras Levy on 05-08-2025 Erythrocyte distribution width (RBC) [Ratio] 17.0 % High 11.6-14.6 [facility] Erythrocyte distribution wid th ratioOrdered By: Magdi Thomas on 05-08-2025 Erythrocyte distribution width (RBC) [Ratio] 16.7 % High 11.6-14.6 [facility] Erythrocyte distribution wid th standard deviationOrdered By: Ras Levy on 05-08-2025 Erythrocyte distribution width (RBC) [Ratio] 57.2 fl High 35.1-43.9 [facility] Erythrocyte distribution wid th standard deviationOrdered By: Magdi Thomas on 05-08-2025 Erythrocyte distribution width (RBC) [Ratio] 56.6 fl High 35.1-43.9 [facility] Glomerular filtration rate ( GFR) estimation/1.73 sq m using serum, plasma, or whole bOrdered By: Ras Levy on 05-08-2025 GFR/1.73 sq M.predicted among non-blacks MDRD (S/P/Bld) [Vol rate/Area] 40 mL/min/{1.73_m2} Low >60 [facility] Glomerular filtration rate ( GFR) estimation/1.73 sq m using serum, plasma, or whole bOrdered By: Magdi Thomas on 05-08-2025 GFR/1.73 sq M.predicted among non-blacks MDRD (S/P/Bld) [Vol rate/Area] 38 mL/min/{1.73_m2} Low >60 [facility] Hematocrit Auto (Bld) [Volum e fraction]Ordered By: Ras Levy on 05-08-2025 Hematocrit (Bld) [Volume fraction] 25.9 % Low 37-47 [facility] Hematocrit Auto (Bld) [Volum e fraction]Ordered By: Magdi Thomas on 05-08-2025 Hematocrit (Bld) [Volume fraction] 27.0 % Low 37-47 [facility] Hemoglobin measurementOrdere d By: Ras Levy on 05-08-2025 Hemoglobin (Bld) [Mass/Vol] 8.0 g/dL Low 12.0-15.0 [facility] Hemoglobin measurementOrdere d By: Magdi Thomas on 05-08-2025 Hemoglobin (Bld) [Mass/Vol] 8.0 g/dL Low 12.0-15.0 [facility] Immature granulocytes/100 WB C Auto (Bld)Ordered By: Ras Levy on 05-08-2025 Immature granulocytes/100 WBC (Bld) 0.400 % 0.0-0.9 [facility] Immature granulocytes/100 WB C Auto (Bld)Ordered By: Magdi Thomas on 05-08-2025 Immature granulocytes/100 WBC (Bld) 0.400 % 0.0-0.9 [facility] Ketones Test strip Ql (U)Ord ered By: Ras Levy on 05-08-2025 Ketones Ql (U) Negative Negative [facility] L503.7505on 05-08-2025 Natriuretic peptide B (Bld) [Mass/Vol] 3384 pg/mL High <=1800 [facility] Comment on above: Result Comment: Hear t Failure Unlikely: < 300 pg/mLHeart Failure Likely< 50 Years: > 450 pg/mL50-75 Years: > 900 pg/mL>75 Years: > 1800 pg/mL Performed By: #### L 500.4050, L100.0100, L503.7505, L503.6005, L300.3900, L300.4310 ####[facility] [address] [facility] [place], [address] Lactic Acidon 05-08-2025 Lactate [Moles/Vol] 1.4 mmol/L Normal 0.0-2.0 [facility] Comment on above: Order Comment: Y Performed By: #### L 500.4050, L100.0100, L503.7505, L503.6005, L300.3900, L300.4310 ####[facility] [address] [facility] [place], [place], [id number] MCV (mean corpuscular volume ) determinationOrdered By: Ras Levy on 05-08-2025 MCV (RBC) [Entitic vol] 95.9 fL 81-99 [facility] MCV (mean corpuscular volume ) determinationOrdered By: Magdi Thomas on 05-08-2025 MCV (RBC) [Entitic vol] 96.1 fL 81-99 [facility] Mean corpuscular hemoglobin (MCH) determinationOrdered By: Ras Levy on 05-08-2025 MCH (RBC) [Entitic mass] 29.6 pg 27.0-32.0 [facility] Mean corpuscular hemoglobin (MCH) determinationOrdered By: Magdi Thomas on 05-08-2025 MCH (RBC) [Entitic mass] 28.5 pg 27.0-32.0 [facility] Monocyte percentageOrdered B y: Ras Levy on 05-08-2025 Monocytes/100 WBC (Bld) 6.9 % 0-10 [facility] Monocyte percentageOrdered B y: Magdi Thomas on 05-08-2025 Monocytes/100 WBC (Bld) 7.6 % 0-10 [facility] Mucus LM Ql (Urine sed)Order ed By: Ras Levy on 05-08-2025 Mucus Ql (Urine sed) 0 SEEN /hpf [facility] Natriuretic peptide.B prohor courtney N-Terminal [Mass/volume] in Serum or PlasmaOrdered By: Ras Levy on 05-08-2025 Natriuretic peptide.B prohormone N-Terminal [Mass/Vol] 3384 pg/mL High <1800 [facility] Neutrophil percentageOrdered By: Ras Levy on 05-08-2025 Neutrophils/100 WBC (Bld) 79.7 % High 47-70 [facility] Neutrophil percentageOrdered By: Magdi Thomas on 05-08-2025 Neutrophils/100 WBC (Bld) 81.7 % High 47-70 [facility] Nitrite Test strip Ql (U)Ord ered By: Ras Levy on 05-08-2025 Nitrite Ql (U) Negative Negative [facility] No Panel InformationOrdered By: Ras Levy on 05-08-2025 24 U/L <32 [facility] Partial Thromboplast Timeon 05-08-2025 aPTT Coag (Bld) [Time] 33.6 s Normal 24.1-36.2 [facility] Comment on above: Performed By: #### L 500.4050, L100.0100, L503.7505, L503.6005, L300.3900, L300.4310 ####[facility] [address] [place], [place], [id number] Platelet countOrdered By: Sherif Levy on 05-08-2025 Platelets (Bld) [#/Vol] 273 10*3/uL 150-450 [facility] Platelet countOrdered By: Ernestine Thomas on 05-08-2025 Platelets (Bld) [#/Vol] 281 10*3/uL 150-450 [facility] Potassium measurement (mass/ volume)Ordered By: Ras Levy on 05-08-2025 Potassium (Unsp spec) [Mass/Vol] 4.4 mmol/L 3.3-5.1 [facility] Potassium measurement (mass/ volume)Ordered By: Magdi Thoams on 05-08-2025 Potassium (Unsp spec) [Mass/Vol] 4.4 mmol/L 3.3-5.1 [facility] Protein Test strip Ql (U)Ord ered By: Ras Levy on 05-08-2025 Protein Ql (U) 30 mg/dl High Negative [facility] Prothrombin Time w/INRon INR Coag (PPP) [Relative time] 1.8 {INR} Normal [facility] Comment on above: Performed By: #### L 500.4050, L100.0100, L503.7505, L503.6005, L300.3900, L300.4310 ####[facility] [address] [place], [place], [phone] PT Coag (PPP) [Time] 21.5 s High 11.7-14.9 [facility] Comment on above: Performed By: #### L 500.4050, L100.0100, L503.7505, L503.6005, L300.3900, L300.4310 ####[facility] [address] [place], [address] Prothrombin timeOrdered By: Ras Levy on 05-08-2025 PT Coag (PPP) [Time] 21.5 s High 11.7-14.9 [facility] RBC Auto (Bld) [#/Vol]Ordere d By: Ras Levy on 05-08-2025 RBC (Bld) [#/Vol] 2.70 10*6/uL Low 4.2-5.4 [facility] RBC Auto (Bld) [#/Vol]Ordere d By: Magdi Thomas on 05-08-2025 RBC (Bld) [#/Vol] 2.81 10*6/uL Low 4.2-5.4 [facility] Serum creatinine measurement (mass/volume)Ordered By: Ras Levy on 05-08-2025 Creatinine [Mass/Vol] 1.30 mg/dL High 0.70-1.20 [facility] Serum creatinine measurement (mass/volume)Ordered By: Magdi Thomas on 05-08-2025 Creatinine [Mass/Vol] 1.36 mg/dL High 0.70-1.20 [facility] Serum globulin measurementOr dered By: Ras Levy on 05-08-2025 Globulin (S) [Mass/Vol] 3.1 g/dL 2.2-4.2 [facility] Serum glucose measurement (m ass/volume)Ordered By: Ras Levy on 05-08-2025 Glucose [Mass/Vol] 110 mg/dL High 70-99 [facility] Serum glucose measurement (m ass/volume)Ordered By: Magdi Thomas on 05-08-2025 Glucose [Mass/Vol] 139 mg/dL High 70-99 [facility] Serum or plasma alanine albert otransferase (ALT) measurementOrdered By: Ras Levy on 05-08-2025 ALT [Catalytic activity/Vol] 12 U/L <35 [facility] Serum or plasma albumin allan urement (mass/volume)Ordered By: Ras Levy on 05-08-2025 Albumin [Mass/Vol] 3.2 g/dL Low 3.4-4.8 [facility] Serum or plasma albumin/glob ulin mass ratioOrdered By: Ras Levy on 05-08-2025 Albumin/Globulin [Mass ratio] 1.0 {ratio} 0.9-2.4 [facility] Serum or plasma alkaline massimo sphatase measurementOrdered By: Ras Levy on 05-08-2025 ALP [Catalytic activity/Vol] 76 U/L 35-104 [facility] Serum or plasma calcium allan urement (mass/volume)Ordered By: Ras Levy on 05-08-2025 Calcium [Mass/Vol] 9.0 mg/dL 7.6-11.0 [facility] Serum or plasma calcium allan urement (mass/volume)Ordered By: Magdi Thomas on 05-08-2025 Calcium [Mass/Vol] 8.9 mg/dL 7.6-11.0 [facility] Serum or plasma urea nitroge n measurement (mass/volume)Ordered By: Ras Levy on 05-08-2025 Urea nitrogen [Mass/Vol] 17 mg/dL 03-09 [facility] Serum or plasma urea nitroge n measurement (mass/volume)Ordered By: Magdi Thomas on 05-08-2025 Urea nitrogen [Mass/Vol] 17 mg/dL 03-09 [facility] Sodium levelOrdered By: Ras Levy on 05-08-2025 Sodium [Moles/Vol] 139 mmol/L 133-145 [facility] Sodium levelOrdered By: Eve Thomas on 05-08-2025 Sodium [Moles/Vol] 138 mmol/L 133-145 [facility] Squamous epithelial cells de tection in urine sediment by light microscopyOrdered By: Ras Levy on 05-08-2025 Epithelial cells.squamous LM Ql (Urine sed) 0-5 SEEN /hpf 5-10 [facility] Total proteinOrdered By: Nicky Levy on 05-08-2025 Protein [Mass/Vol] 6.2 g/dL 5.9-8.4 [facility] Transitional cells detection in urine sediment by light microscopyOrdered By: Ras Levy on 05-08-2025 Transitional cells LM Ql (Urine sed) 0-5 SEEN /hpf 0-5 [facility] Urinalysis, Completeon 05-08 EPI,SQUAMOUS 0-5 SEEN Normal 5-10 [facility] Comment on above: Order Comment: CLEAN CATCH Performed By: #### L 400.0001, M100.2200 ####[facility] [address] [place], [address] EPI,TRANSITION 0-5 SEEN Normal 0-5 [facility] Comment on above: Order Comment: CLEAN CATCH Performed By: #### L 400.0001, M100.2200 ####[facility] [address] [place], [address] RBC 0-5 SEEN Normal 0-5 [facility] Comment on above: Order Comment: CLEAN CATCH Performed By: #### L 400.0001, M100.2200 ####[facility] [address] [place], [address] WBC 0-5 SEEN Normal 0-5 [facility] Comment on above: Order Comment: CLEAN CATCH Performed By: #### L 400.0001, M100.2200 ####[facility] [address] [place], [address] BACTERIA 0 SEEN Normal None Seen [facility] Comment on above: Order Comment: CLEAN CATCH Performed By: #### L 400.0001, M100.2200 ####[facility] [address] [place], [address] Mucus Ql (Urine sed) 0 SEEN Normal [facility] Comment on above: Order Comment: CLEAN CATCH Performed By: #### L 400.0001, M100.2200 ####[facility] [address] [place], [address] Urine clarityOrdered By: Nicky Levy on 05-08-2025 Clarity (U) Clear Clear [facility] Urine color determinationOrd ered By: Ras Levy on 05-08-2025 Color (U) Straw Yellow [facility] Urine cultureOrdered By: Nicky Levy on 05-08-2025 Bacteria identified Cx Nom (U) Culture exhibits no growth. [facility] Urine glucose detectionOrder ed By: Ras Levy on 05-08-2025 Glucose Ql (U) Normal mg/dl Normal [facility] Urine leukocyte esterase det ection by dipstickOrdered By: Ras Levy on 05-08-2025 Leukocyte esterase Test strip Ql (U) 25 /ul High Negative [facility] Urine pHOrdered By: Ras banerjee on 05-08-2025 pH (U) 6.0 [pH] 5.0 - 8.0 [facility] Urine sediment bacteria coun t by microscopy (number/high power field)Ordered By: Ras Levy on 05-08-2025 Bacteria LM.HPF (Urine sed) [#/Area] 0 /[HPF] None Seen [facility] Urine specific gravity measu rementOrdered By: Ras Levy on 05-08-2025 Specific gravity (U) [Rel density] 1.010 1.002-1.03 0 [facility] Urine urobilinogen measureme ntOrdered By: Ras Levy on 05-08-2025 Urobilinogen Ql (U) Normal mg/dl Normal [facility] White blood cell (WBC) count Ordered By: Ras Levy on 05-08-2025 WBC (Bld) [#/Vol] 7.5 10*3/uL 4.4-11.0 [facility] White blood cell (WBC) count Ordered By: Magdi Thomas on 05-08-2025 WBC (Bld) [#/Vol] 6.9 10*3/uL 4.4-11.0 [facility] White blood cell countOrdere d By: Ras Levy on 05-08-2025 White blood cell count 0-5 SEEN /hpf 0-5 [facility] CNPNon 05-06-2025 CNPN Normal [facility] CNPTOUTREACHon 05-06-2025 CNPTOUTREACH Normal [facility] Absolute lymphocyte countOrd ered By: Ras Blas on 05-03-2025 Lymphocytes Auto (Unsp spec) [#/Vol] 0.96 10*3/uL 0.83-4.51 [facility] Anion gap in Serum or Plasma Ordered By: Ras Blas on 05-03-2025 Anion gap [Moles/Vol] 7 mmol/L 5-15 [facility] Automated lymphocyte count a s percentage of total leukocytesOrdered By: Ras Bals on 05-03-2025 Lymphocytes/100 WBC Auto (Unsp spec) 10.7 % Low 19-41 [facility] BUN/creatinine ratioOrdered By: Ras Blas on 05-03-2025 Urea nitrogen/Creatinine [Mass ratio] 16.2 mg/mg - [facility] Basic Metabolic Profile (BMP )on 05-03-2025 BUN/CRE 16.2 RATIO Normal - [facility] Comment on above: Performed By: #### L 500.2500, L100.0100 ####[facility] [address] [place], [address] Calcium [Mass/Vol] 8.6 mg/dL Normal 7.6-11.0 [facility] Comment on above: Performed By: #### L 500.2500, L100.0100 ####[facility] [address] [place], [address] Chloride [Moles/Vol] 104 mmol/L Normal 98-108 [facility] Comment on above: Performed By: #### L 500.2500, L100.0100 ####[facility] [address] [place], [address] CO2 [Moles/Vol] 27.3 mmol/L Normal 21.0-32.0 [facility] Comment on above: Performed By: #### L 500.2500, L100.0100 ####[facility] [address] [place], [address] Creatinine [Mass/Vol] 1.22 mg/dL High 0.70-1.20 [facility] Comment on above: Performed By: #### L 500.2500, L100.0100 ####[facility] [address] [place], [address] ECRCL 35.81 ml/min Low 50-250 [facility] Comment on above: Performed By: #### L 500.2500, L100.0100 ####[facility] [address] [place], [address] GAP 7 Normal 5-15 [facility] Comment on above: Performed By: #### L 500.2500, L100.0100 ####[facility] [address] [place], [address] GFR/1.73 sq M.predicted among non-blacks MDRD (S/P/Bld) [Vol rate/Area] 43 mL/min/{1.73_m2} Low >60 [facility] Comment on above: Result Comment: mL/m in/1.73m2 CKD-EPI Creatinine Equation (2020) Performed By: #### L 500.2500, L100.0100 ####[facility] [address] [place], [address] Glucose [Mass/Vol] 97 mg/dL Normal 70-99 [facility] Comment on above: Performed By: #### L 500.2500, L100.0100 ####[facility] [address] [place], [address] Potassium [Moles/Vol] 4.4 mmol/L Normal 3.3-5.1 [facility] Comment on above: Performed By: #### L 500.2500, L100.0100 ####[facility] [address] [place], [address] Sodium [Moles/Vol] 138 mmol/L Normal 133-145 [facility] Comment on above: Performed By: #### L 500.2500, L100.0100 ####[facility] [address] [place], [address] Urea nitrogen [Mass/Vol] 20 mg/dL High 4-19 [facility] Comment on above: Performed By: #### L 500.2500, L100.0100 ####[facility] [address] [place], [address] Basophil percentageOrdered B y: Ras Blas on 05-03-2025 Basophils/100 WBC (Bld) 0.9 % 0-1 [facility] Bedside Glucoseon 05-03-2025 FINGERSTICK GLU 161 mg/dL High 74-106 [facility] Comment on above: Result Comment: RUSSELL GEMENT OF PATIENT CARE PER NURSING PROTOCOL Performed By: #### L 501.080 ####[facility] [address] [place], [address] FINGERSTICK GLU 99 mg/dL Normal 74-106 [facility] Comment on above: Result Comment: RUSSELL GEMENT OF PATIENT CARE PER NURSING PROTOCOL Performed By: #### L 501.080 ####[facility] [address] [place], [address] Body Fluid Cell Count+Diffon 05-03-2025 PATH COMM/BF Reviewed Normal [facility] Comment on above: Order Comment: The r eference interval(s) and other method performancespecifications are unavailable for this body fluid.Comparison of the result with concentration in the blood,serum, or plasma is recommended.THORACENTESIS Result Comment: NO M ALIGNANT CELLS IDENTIFIED.ACUTE AND CHRONIC INFLAMMATORY CELLS PRESENT.Terra Lugo MD 05/03/2025 AMENDED REPORT 05/03/25 1029 PATH COMM/BF previously reported as: March follow Performed By: #### L 200.0200 ####[facility] [address] [place], [address] CBC W/Diff, Automatedon 04-21 Absolute Lymph 0.96 X10 3/uL Normal 0.83-4.51 [facility] Comment on above: Performed By: #### L 500.2500, L100.0100 ####[facility] [address] [place], [address] Absolute Neut 7.1 X10 3/uL Normal 2.0-7.7 [facility] Comment on above: Performed By: #### L 500.2500, L100.0100 ####[facility] [address] [place], [address] Basophils/100 WBC (Bld) 0.9 % Normal 0-1 [facility] Comment on above: Performed By: #### L 500.2500, L100.0100 ####[facility] [address] [place], [address] Eosinophils/100 WBC (Bld) 2.6 % Normal 0-5 [facility] Comment on above: Performed By: #### L 500.2500, L100.0100 ####[facility] [address] [place], [address] Erythrocyte distribution width (RBC) [Ratio] 16.0 % High 11.6-14.6 [facility] Comment on above: Performed By: #### L 500.2500, L100.0100 ####[facility] [address] [place], [address] Hematocrit (Bld) [Volume fraction] 24.3 % Low 37-47 [facility] Comment on above: Performed By: #### L 500.2500, L100.0100 ####[facility] [address] [place], [address] Hemoglobin (Bld) [Mass/Vol] 7.5 g/dL Low 12.0-15.0 [facility] Comment on above: Performed By: #### L 500.2500, L100.0100 ####[facility] [address] [place], [address] IG% 0.600 Normal 0.0-0.9 [facility] Comment on above: Result Comment: IG% - Immature Granulocytes (promyelocytes, myelocytes andmetamyelocytes) > 1% indicates that a LEFT SHIFT is Present. Performed By: #### L 500.2500, L100.0100 ####[facility] [address] [place], [address] Lymphocytes/100 WBC (Bld) 10.7 % Low 19-41 [facility] Comment on above: Performed By: #### L 500.2500, L100.0100 ####[facility] [address] [place], [address] MCH (RBC) [Entitic mass] 29.4 pg Normal 27.0-32.0 [facility] Comment on above: Performed By: #### L 500.2500, L100.0100 ####[facility] [address] [place], [address] MCHC (RBC) [Mass/Vol] 30.9 g/dL Low 32-36 [facility] Comment on above: Performed By: #### L 500.2500, L100.0100 ####[facility] [address] [place], [address] MCV (RBC) [Entitic vol] 95.3 fL Normal 81-99 [facility] Comment on above: Performed By: #### L 500.2500, L100.0100 ####[facility] [address] [place], [address] Monocytes/100 WBC (Bld) 6.8 % Normal 0-10 [facility] Comment on above: Performed By: #### L 500.2500, L100.0100 ####[facility] [address] [place], [address] Neutrophils/100 WBC (Bld) 78.4 % High 47-70 [facility] Comment on above: Performed By: #### L 500.2500, L100.0100 ####[facility] [address] [place], [address] Nucleated RBC (Bld) [#/Vol] 0 10*3/uL Normal 0-5 [facility] Comment on above: Performed By: #### L 500.2500, L100.0100 ####[facility] [address] [place], [address] Platelet mean volume (Bld) [Entitic vol] 9.8 fL Normal 6.2-12.0 [facility] Comment on above: Performed By: #### L 500.2500, L100.0100 ####[facility] [address] [place], [address] Platelets (Bld) [#/Vol] 287 10*3/uL Normal 150-450 [facility] Comment on above: Performed By: #### L 500.2500, L100.0100 ####[facility] [address] [place], [address] RBC (Bld) [#/Vol] 2.55 10*6/uL Low 4.2-5.4 [facility] Comment on above: Performed By: #### L 500.2500, L100.0100 ####[facility] [address] [place], [address] RDW SD 53.6 fl High 35.1-43.9 [facility] Comment on above: Performed By: #### L 500.2500, L100.0100 ####[facility] [address] [place], [address] WBC (Bld) [#/Vol] 9.0 10*3/uL Normal 4.4-11.0 [facility] Comment on above: Performed By: #### L 500.2500, L100.0100 ####[facility] [address] [place], [address] Carbon dioxide, total [Moles /volume] in Central venous bloodOrdered By: Ras Blas on 05-03-2025 CO2 [Moles/Vol] 27.3 mmol/L 21.0-32.0 [facility] Chloride assayOrdered By: Sherif Blas on 05-03-2025 Chloride [Moles/Vol] 104 mmol/L 98-108 [facility] Eosinophil percentageOrdered By: Ras Blas on 05-03-2025 Eosinophils/100 WBC (Bld) 2.6 % 0-5 [facility] Erythrocyte distribution wid th ratioOrdered By: Ras Blas on 05-03-2025 Erythrocyte distribution width (RBC) [Ratio] 16.0 % High 11.6-14.6 [facility] Erythrocyte distribution wid th standard deviationOrdered By: Ras Blas on 05-03-2025 Erythrocyte distribution width (RBC) [Ratio] 53.6 fl High 35.1-43.9 [facility] Glomerular filtration rate ( GFR) estimation/1.73 sq m using serum, plasma, or whole bOrdered By: Ras Blas on 05-03-2025 GFR/1.73 sq M.predicted among non-blacks MDRD (S/P/Bld) [Vol rate/Area] 43 mL/min/{1.73_m2} Low >60 [facility] Gl[facility] at [facility] deOrdered By: Ras Blas on 05-03-2025 Glucose [Mass/Vol] 161 mg/dL High 74-106 [facility] Hematocrit Auto (Bld) [Volum e fraction]Ordered By: Ras Blas on 05-03-2025 Hematocrit (Bld) [Volume fraction] 24.3 % Low 37-47 [facility] Hemoglobin measurementOrdere d By: Ras Blas on 05-03-2025 Hemoglobin (Bld) [Mass/Vol] 7.5 g/dL Low 12.0-15.0 [facility] Immature granulocytes/100 WB C Auto (Bld)Ordered By: Ras Blas on 05-03-2025 Immature granulocytes/100 WBC (Bld) 0.600 % 0.0-0.9 [facility] MCV (mean corpuscular volume ) determinationOrdered By: Ras Blas on 05-03-2025 MCV (RBC) [Entitic vol] 95.3 fL 81-99 [facility] Mean corpuscular hemoglobin (MCH) determinationOrdered By: Ras Blas on 05-03-2025 MCH (RBC) [Entitic mass] 29.4 pg 27.0-32.0 [facility] Monocyte percentageOrdered B y: Ras Blas on 05-03-2025 Monocytes/100 WBC (Bld) 6.8 % 0-10 [facility] Neutrophil percentageOrdered By: Ras Blas on 05-03-2025 Neutrophils/100 WBC (Bld) 78.4 % High 47-70 [facility] Platelet countOrdered By: Sherif Blas on 05-03-2025 Platelets (Bld) [#/Vol] 287 10*3/uL 150-450 [facility] Potassium measurement (mass/ volume)Ordered By: Ras Blas on 05-03-2025 Potassium (Unsp spec) [Mass/Vol] 4.4 mmol/L 3.3-5.1 [facility] RBC Auto (Bld) [#/Vol]Ordere d By: Ras Blas on 05-03-2025 RBC (Bld) [#/Vol] 2.55 10*6/uL Low 4.2-5.4 [facility] Serum creatinine measurement (mass/volume)Ordered By: Ras Blas on 05-03-2025 Creatinine [Mass/Vol] 1.22 mg/dL High 0.70-1.20 [facility] Serum glucose measurement (m ass/volume)Ordered By: Ras Blas on 05-03-2025 Glucose [Mass/Vol] 97 mg/dL 70-99 [facility] Serum or plasma calcium allan urement (mass/volume)Ordered By: Ras Blas on 05-03-2025 Calcium [Mass/Vol] 8.6 mg/dL 7.6-11.0 [facility] Serum or plasma urea nitroge n measurement (mass/volume)Ordered By: Ras Blas on 05-03-2025 Urea nitrogen [Mass/Vol] 20 mg/dL High 4-19 [facility] Sodium levelOrdered By: Ras Blas on 05-03-2025 Sodium [Moles/Vol] 138 mmol/L 133-145 [facility] White blood cell (WBC) count Ordered By: Ras Blas on 05-03-2025 WBC (Bld) [#/Vol] 9.0 10*3/uL 4.4-11.0 [facility] Basic Metabolic Profile (BMP )on 05-02-2025 BUN/CRE 18.1 RATIO Normal 10-20 [facility] Comment on above: Performed By: #### L 500.2500, L100.0100 ####[facility] [address] [place], [address] Calcium [Mass/Vol] 8.5 mg/dL Normal 7.6-11.0 [facility] Comment on above: Performed By: #### L 500.2500, L100.0100 ####[facility] [address] [place], [address] Chloride [Moles/Vol] 105 mmol/L Normal 98-108 [facility] Comment on above: Performed By: #### L 500.2500, L100.0100 ####[facility] [address] [place], [address] CO2 [Moles/Vol] 26.5 mmol/L Normal 21.0-32.0 [facility] Comment on above: Performed By: #### L 500.2500, L100.0100 ####[facility] [address] [place], [address] Creatinine [Mass/Vol] 1.19 mg/dL Normal 0.70-1.20 [facility] Comment on above: Performed By: #### L 500.2500, L100.0100 ####[facility] [address] [place], [address] ECRCL 36.91 ml/min Low 50-250 [facility] Comment on above: Performed By: #### L 500.2500, L100.0100 ####[facility] [address] [place], [address] GAP 8 Normal 5-15 [facility] Comment on above: Performed By: #### L 500.2500, L100.0100 ####[facility] [address] [place], [address] GFR/1.73 sq M.predicted among non-blacks MDRD (S/P/Bld) [Vol rate/Area] 45 mL/min/{1.73_m2} Low >60 [facility] Comment on above: Result Comment: mL/m in/1.73m2 CKD-EPI Creatinine Equation (2020) Performed By: #### L 500.2500, L100.0100 ####[facility] [address] [place], [address] Glucose [Mass/Vol] 106 mg/dL High 70-99 [facility] Comment on above: Performed By: #### L 500.2500, L100.0100 ####[facility] [address] [place], [address] Potassium [Moles/Vol] 4.5 mmol/L Normal 3.3-5.1 [facility] Comment on above: Performed By: #### L 500.2500, L100.0100 ####[facility] [address] [place], [address] Sodium [Moles/Vol] 139 mmol/L Normal 133-145 [facility] Comment on above: Performed By: #### L 500.2500, L100.0100 ####[facility] [address] [place], [address] Urea nitrogen [Mass/Vol] 22 mg/dL High 4-19 [facility] Comment on above: Performed By: #### L 500.2500, L100.0100 ####[facility] [address] [place], [address] Bedside Glucoseon 05-02-2025 FINGERSTICK GLU 116 mg/dL High 74-106 [facility] Comment on above: Result Comment: RUSSELL QUINTANILLA OF PATIENT CARE PER NURSING PROTOCOL Performed By: #### L 501.080 ####[facility] [address] [place], [address] FINGERSTICK GLU 114 mg/dL High 74-106 [facility] Comment on above: Result Comment: RUSSELL GEMENT OF PATIENT CARE PER NURSING PROTOCOL Performed By: #### L 501.080 ####[facility] [address] [place], [address] FINGERSTICK GLU 94 mg/dL Normal 74-106 [facility] Comment on above: Result Comment: RUSSELL GEMENT OF PATIENT CARE PER NURSING PROTOCOL Performed By: #### L 501.080 ####[facility] [address] [place], [address] FINGERSTICK GLU 96 mg/dL Normal 74-106 [facility] Comment on above: Result Comment: RUSSELL GEMENT OF PATIENT CARE PER NURSING PROTOCOL Performed By: #### L 501.080 ####[facility] [address] [place], [address] CBC W/Diff, Automatedon 06- Absolute Lymph 0.97 X10 3/uL Normal 0.83-4.51 [facility] Comment on above: Performed By: #### L 500.2500, L100.0100 ####[facility] [address] [place], [address] Absolute Neut 8.9 X10 3/uL High 2.0-7.7 [facility] Comment on above: Performed By: #### L 500.2500, L100.0100 ####[facility] [address] [place], [address] Basophils/100 WBC (Bld) 0.7 % Normal 0-1 [facility] Comment on above: Performed By: #### L 500.2500, L100.0100 ####[facility] [address] [place], [address] Eosinophils/100 WBC (Bld) 1.5 % Normal 0-5 [facility] Comment on above: Performed By: #### L 500.2500, L100.0100 ####[facility] [address] [place], [address] Erythrocyte distribution width (RBC) [Ratio] 16.2 % High 11.6-14.6 [facility] Comment on above: Performed By: #### L 500.2500, L100.0100 ####[facility] [address] [place], [address] Hematocrit (Bld) [Volume fraction] 24.6 % Low 37-47 [facility] Comment on above: Performed By: #### L 500.2500, L100.0100 ####[facility] [address] [place], [address] Hemoglobin (Bld) [Mass/Vol] 7.6 g/dL Low 12.0-15.0 [facility] Comment on above: Performed By: #### L 500.2500, L100.0100 ####[facility] [address] [place], [address] IG% 0.600 Normal 0.0-0.9 [facility] Comment on above: Result Comment: IG% - Immature Granulocytes (promyelocytes, myelocytes andmetamyelocytes) > 1% indicates that a LEFT SHIFT is Present. Performed By: #### L 500.2500, L100.0100 ####[facility] [address] [place], [address] Lymphocytes/100 WBC (Bld) 9.0 % Low 19-41 [facility] Comment on above: Performed By: #### L 500.2500, L100.0100 ####[facility] [address] [place], [address] MCH (RBC) [Entitic mass] 29.3 pg Normal 27.0-32.0 [facility] Comment on above: Performed By: #### L 500.2500, L100.0100 ####[facility] [address] [place], [address] MCHC (RBC) [Mass/Vol] 30.9 g/dL Low 32-36 [facility] Comment on above: Performed By: #### L 500.2500, L100.0100 ####[facility] [address] [place], [address] MCV (RBC) [Entitic vol] 95.0 fL Normal 81-99 [facility] Comment on above: Performed By: #### L 500.2500, L100.0100 ####[facility] [address] [place], [address] Monocytes/100 WBC (Bld) 5.9 % Normal 0-10 [facility] Comment on above: Performed By: #### L 500.2500, L100.0100 ####[facility] [address] [place], [address] Neutrophils/100 WBC (Bld) 82.3 % High 47-70 [facility] Comment on above: Performed By: #### L 500.2500, L100.0100 ####[facility] [address] [place], [address] Nucleated RBC (Bld) [#/Vol] 0 10*3/uL Normal 0-5 [facility] Comment on above: Performed By: #### L 500.2500, L100.0100 ####[facility] [address] [place], [address] Platelet mean volume (Bld) [Entitic vol] 10.0 fL Normal 6.2-12.0 [facility] Comment on above: Performed By: #### L 500.2500, L100.0100 ####[facility] [address] [place], [address] Platelets (Bld) [#/Vol] 295 10*3/uL Normal 150-450 [facility] Comment on above: Performed By: #### L 500.2500, L100.0100 ####[facility] [address] [place], [address] RBC (Bld) [#/Vol] 2.59 10*6/uL Low 4.2-5.4 [facility] Comment on above: Performed By: #### L 500.2500, L100.0100 ####[facility] [address] [place], [address] RDW SD 53.4 fl High 35.1-43.9 [facility] Comment on above: Performed By: #### L 500.2500, L100.0100 ####[facility] [address] [place], [address] WBC (Bld) [#/Vol] 10.8 10*3/uL Normal 4.4-11.0 [facility] Comment on above: Performed By: #### L 500.2500, L100.0100 ####[facility] [address] [place], [address] CNPNon 05-02-2025 CNPN Normal [facility] Basic Metabolic Profile (BMP )on 05-01-2025 BUN/CRE 20.9 RATIO High 10-20 [facility] Comment on above: Performed By: #### L 100.0100, L500.2500 ####[facility] [address] [place], [address] Calcium [Mass/Vol] 8.4 mg/dL Normal 7.6-11.0 [facility] Comment on above: Performed By: #### L 100.0100, L500.2500 ####[facility] [address] [place], [address] Chloride [Moles/Vol] 104 mmol/L Normal 98-108 [facility] Comment on above: Performed By: #### L 100.0100, L500.2500 ####[facility] [address] [place], [address] CO2 [Moles/Vol] 26.8 mmol/L Normal 21.0-32.0 [facility] Comment on above: Performed By: #### L 100.0100, L500.2500 ####[facility] [address] [place], [address] Creatinine [Mass/Vol] 1.24 mg/dL High 0.70-1.20 [facility] Comment on above: Performed By: #### L 100.0100, L500.2500 ####[facility] [address] [place], [address] ECRCL 34.60 ml/min Low 50-250 [facility] Comment on above: Performed By: #### L 100.0100, L500.2500 ####[facility] [address] [place], [address] GAP 8 Normal 5-15 [facility] Comment on above: Performed By: #### L 100.0100, L500.2500 ####[facility] [address] [place], [address] GFR/1.73 sq M.predicted among non-blacks MDRD (S/P/Bld) [Vol rate/Area] 43 mL/min/{1.73_m2} Low >60 [facility] Comment on above: Result Comment: mL/m in/1.73m2 CKD-EPI Creatinine Equation (2020) Performed By: #### L 100.0100, L500.2500 ####[facility] [address] [place], [address] Glucose [Mass/Vol] 127 mg/dL High 70-99 [facility] Comment on above: Performed By: #### L 100.0100, L500.2500 ####[facility] [address] [place], [address] Potassium [Moles/Vol] 4.3 mmol/L Normal 3.3-5.1 [facility] Comment on above: Performed By: #### L 100.0100, L500.2500 ####[facility] [address] [place], [address] Sodium [Moles/Vol] 138 mmol/L Normal 133-145 [facility] Comment on above: Performed By: #### L 100.0100, L500.2500 ####[facility] [address] [place], [address] Urea nitrogen [Mass/Vol] 26 mg/dL High 4-19 [facility] Comment on above: Performed By: #### L 100.0100, L500.2500 ####[facility] [address] [place], [address] Bedside Glucoseon 05-01-2025 FINGERSTICK GLU 142 mg/dL High 74-106 [facility] Comment on above: Result Comment: RUSSELL GEMENT OF PATIENT CARE PER NURSING PROTOCOL Performed By: #### L 501.080 ####[facility] [address] [place], [address] FINGERSTICK GLU 104 mg/dL Normal 74-106 [facility] Comment on above: Result Comment: RUSSELL GEMENT OF PATIENT CARE PER NURSING PROTOCOL Performed By: #### L 501.080 ####[facility] [address] [place], [address] CBC W/Diff, Automatedon - Absolute Lymph 1.18 X10 3/uL Normal 0.83-4.51 [facility] Comment on above: Performed By: #### L 100.0100, L500.2500 ####[facility] [address] [place], [address] Absolute Neut 9.9 X10 3/uL High 2.0-7.7 [facility] Comment on above: Performed By: #### L 100.0100, L500.2500 ####[facility] [address] [place], [address] Basophils/100 WBC (Bld) 0.6 % Normal 0-1 [facility] Comment on above: Performed By: #### L 100.0100, L500.2500 ####[facility] [address] [place], [address] Eosinophils/100 WBC (Bld) 2.2 % Normal 0-5 [facility] Comment on above: Performed By: #### L 100.0100, L500.2500 ####[facility] [address] [place], [address] Erythrocyte distribution width (RBC) [Ratio] 15.8 % High 11.6-14.6 [facility] Comment on above: Performed By: #### L 100.0100, L500.2500 ####[facility] [address] [place], [address] Hematocrit (Bld) [Volume fraction] 24.5 % Low 37-47 [facility] Comment on above: Performed By: #### L 100.0100, L500.2500 ####[facility] [address] [place], [address] Hemoglobin (Bld) [Mass/Vol] 7.7 g/dL Low 12.0-15.0 [facility] Comment on above: Performed By: #### L 100.0100, L500.2500 ####[facility] [address] [place], [address] IG% 1.000 High 0.0-0.9 [facility] Comment on above: Result Comment: IG% - Immature Granulocytes (promyelocytes, myelocytes andmetamyelocytes) > 1% indicates that a LEFT SHIFT is Present. Performed By: #### L 100.0100, L500.2500 ####[facility] [address] [place], [address] Lymphocytes/100 WBC (Bld) 9.4 % Low 19-41 [facility] Comment on above: Performed By: #### L 100.0100, L500.2500 ####[facility] [address] [place], [address] MCH (RBC) [Entitic mass] 29.2 pg Normal 27.0-32.0 [facility] Comment on above: Performed By: #### L 100.0100, L500.2500 ####[facility] [address] [place], [address] MCHC (RBC) [Mass/Vol] 31.4 g/dL Low 32-36 [facility] Comment on above: Performed By: #### L 100.0100, L500.2500 ####[facility] [address] [place], [address] MCV (RBC) [Entitic vol] 92.8 fL Normal 81-99 [facility] Comment on above: Performed By: #### L 100.0100, L500.2500 ####[facility] [address] [place], [address] Monocytes/100 WBC (Bld) 7.9 % Normal 0-10 [facility] Comment on above: Performed By: #### L 100.0100, L500.2500 ####[facility] [address] [place], [address] Neutrophils/100 WBC (Bld) 78.9 % High 47-70 [facility] Comment on above: Performed By: #### L 100.0100, L500.2500 ####[facility] [address] [place], [address] Nucleated RBC (Bld) [#/Vol] 0.2 10*3/uL Normal 0-5 [facility] Comment on above: Performed By: #### L 100.0100, L500.2500 ####[facility] [address] [place], [address] Platelet mean volume (Bld) [Entitic vol] 9.7 fL Normal 6.2-12.0 [facility] Comment on above: Performed By: #### L 100.0100, L500.2500 ####[facility] [address] [place], [address] Platelets (Bld) [#/Vol] 262 10*3/uL Normal 150-450 [facility] Comment on above: Performed By: #### L 100.0100, L500.2500 ####[facility] [address] [place], [address] RBC (Bld) [#/Vol] 2.64 10*6/uL Low 4.2-5.4 [facility] Comment on above: Performed By: #### L 100.0100, L500.2500 ####[facility] [address] [place], [address] RDW SD 51.0 fl High 35.1-43.9 [facility] Comment on above: Performed By: #### L 100.0100, L500.2500 ####[facility] [address] [place], [address] WBC (Bld) [#/Vol] 12.5 10*3/uL High 4.4-11.0 [facility] Comment on above: Performed By: #### L 100.0100, L500.2500 ####[facility] [address] [place], [address] EGD Reporton 05-01-2025 EGD Report Normal [facility] MR/POSTOP.ANEon 05-01-2025 MR/POSTOP.ANE Normal [facility] MR/RNTJHVEL9ul 05-01-2025 MR/POSTOPAN2 Normal [facility] BRCon 04-30-2025 RC Normal [facility] Comment on above: Result Comment: [id number] OP RC TRANSFUSED 04/30/25 1457 Performed By: #### B TS, BR ####[facility] [address] [place], [address] Basic Metabolic Profile (BMP )on 04-30-2025 BUN/CRE 23.7 RATIO High 10-20 [facility] Comment on above: Performed By: #### L 100.0100, L500.2500 ####[facility] [address] [place], [address] Calcium [Mass/Vol] 8.2 mg/dL Normal 7.6-11.0 [facility] Comment on above: Performed By: #### L 100.0100, L500.2500 ####[facility] [address] [place], [address] Chloride [Moles/Vol] 105 mmol/L Normal 98-108 [facility] Comment on above: Performed By: #### L 100.0100, L500.2500 ####[facility] [address] [place], [address] CO2 [Moles/Vol] 25.1 mmol/L Normal 21.0-32.0 [facility] Comment on above: Performed By: #### L 100.0100, L500.2500 ####[facility] [address] [place], [address] Creatinine [Mass/Vol] 1.19 mg/dL Normal 0.70-1.20 [facility] Comment on above: Performed By: #### L 100.0100, L500.2500 ####[facility] [address] [place], [address] ECRCL 36.05 ml/min Low 50-250 [facility] Comment on above: Performed By: #### L 100.0100, L500.2500 ####[facility] [address] [place], [address] GAP 9 Normal 5-15 [facility] Comment on above: Performed By: #### L 100.0100, L500.2500 ####[facility] [address] [place], [address] GFR/1.73 sq M.predicted among non-blacks MDRD (S/P/Bld) [Vol rate/Area] 45 mL/min/{1.73_m2} Low >60 [facility] Comment on above: Result Comment: mL/m in/1.73m2 CKD-EPI Creatinine Equation (2020) Performed By: #### L 100.0100, L500.2500 ####[facility] [address] [place], [address] Glucose [Mass/Vol] 102 mg/dL High 70-99 [facility] Comment on above: Performed By: #### L 100.0100, L500.2500 ####[facility] [address] [place], [address] Potassium [Moles/Vol] 4.3 mmol/L Normal 3.3-5.1 [facility] Comment on above: Performed By: #### L 100.0100, L500.2500 ####[facility] [address] [place], [address] Sodium [Moles/Vol] 140 mmol/L Normal 133-145 [facility] Comment on above: Performed By: #### L 100.0100, L500.2500 ####[facility] [address] [place], [address] Urea nitrogen [Mass/Vol] 28 mg/dL High 4-19 [facility] Comment on above: Performed By: #### L 100.0100, L500.2500 ####[facility] [address] [place], [address] Bedside Glucoseon 04-30-2025 FINGERSTICK GLU 165 mg/dL High 74-106 [facility] Comment on above: Result Comment: RUSSELL GEMENT OF PATIENT CARE PER NURSING PROTOCOL Performed By: #### L 501.080 ####[facility] [address] [place], [address] FINGERSTICK GLU 130 mg/dL High 74-106 [facility] Comment on above: Result Comment: RUSSELL GEMENT OF PATIENT CARE PER NURSING PROTOCOL Performed By: #### L 501.080 ####[facility] [address] [place], [address] FINGERSTICK GLU 147 mg/dL High 74-106 [facility] Comment on above: Result Comment: RUSSELL GEMENT OF PATIENT CARE PER NURSING PROTOCOL Performed By: #### L 501.080 ####[facility] [address] [place], [address] FINGERSTICK GLU 87 mg/dL Normal 74-106 [facility] Comment on above: Result Comment: RUSSELL GEMENT OF PATIENT CARE PER NURSING PROTOCOL Performed By: #### L 501.080 ####[facility] [address] [place], [address] CBC W/Diff, Automatedon 06-1 0-2024 Absolute Lymph 1.10 X10 3/uL Normal 0.83-4.51 [facility] Comment on above: Performed By: #### L 100.0100, L500.2500 ####[facility] [address] [place], [address] Absolute Neut 9.9 X10 3/uL High 2.0-7.7 [facility] Comment on above: Performed By: #### L 100.0100, L500.2500 ####[facility] [address] [place], [address] Basophils/100 WBC (Bld) 0.5 % Normal 0-1 [facility] Comment on above: Performed By: #### L 100.0100, L500.2500 ####[facility] [address] [place], [address] Eosinophils/100 WBC (Bld) 1.5 % Normal 0-5 [facility] Comment on above: Performed By: #### L 100.0100, L500.2500 ####[facility] [address] [place], [address] Erythrocyte distribution width (RBC) [Ratio] 16.0 % High 11.6-14.6 [facility] Comment on above: Performed By: #### L 100.0100, L500.2500 ####[facility] [address] [place], [address] Hematocrit (Bld) [Volume fraction] 20.8 % Low 37-47 [facility] Comment on above: Performed By: #### L 100.0100, L500.2500 ####[facility] [address] [place], [address] Hemoglobin (Bld) [Mass/Vol] 6.6 g/dL Low 12.0-15.0 [facility] Comment on above: Performed By: #### L 100.0100, L500.2500 ####[facility] [address] [place], [address] IG% 0.900 Normal 0.0-0.9 [facility] Comment on above: Result Comment: IG% - Immature Granulocytes (promyelocytes, myelocytes andmetamyelocytes) > 1% indicates that a LEFT SHIFT is Present. Performed By: #### L 100.0100, L500.2500 ####[facility] [address] [place], [address] Lymphocytes/100 WBC (Bld) 9.1 % Low 19-41 [facility] Comment on above: Performed By: #### L 100.0100, L500.2500 ####[facility] [address] [place], [address] MCH (RBC) [Entitic mass] 29.1 pg Normal 27.0-32.0 [facility] Comment on above: Performed By: #### L 100.0100, L500.2500 ####[facility] [address] [place], [address] MCHC (RBC) [Mass/Vol] 31.7 g/dL Low 32-36 [facility] Comment on above: Performed By: #### L 100.0100, L500.2500 ####[facility] [address] [place], [address] MCV (RBC) [Entitic vol] 91.6 fL Normal 81-99 [facility] Comment on above: Performed By: #### L 100.0100, L500.2500 ####[facility] [address] [place], [address] Monocytes/100 WBC (Bld) 6.8 % Normal 0-10 [facility] Comment on above: Performed By: #### L 100.0100, L500.2500 ####[facility] [address] [place], [address] Neutrophils/100 WBC (Bld) 81.2 % High 47-70 [facility] Comment on above: Performed By: #### L 100.0100, L500.2500 ####[facility] [address] [place], [address] Nucleated RBC (Bld) [#/Vol] 0.2 10*3/uL Normal 0-5 [facility] Comment on above: Performed By: #### L 100.0100, L500.2500 ####[facility] [address] [place], [address] Platelet mean volume (Bld) [Entitic vol] 9.9 fL Normal 6.2-12.0 [facility] Comment on above: Performed By: #### L 100.0100, L500.2500 ####[facility] [address] [place], [address] Platelets (Bld) [#/Vol] 265 10*3/uL Normal 150-450 [facility] Comment on above: Performed By: #### L 100.0100, L500.2500 ####[facility] [address] [place], [address] RBC (Bld) [#/Vol] 2.27 10*6/uL Low 4.2-5.4 [facility] Comment on above: Performed By: #### L 100.0100, L500.2500 ####[facility] [address] [place], [address] RDW SD 51.4 fl High 35.1-43.9 [facility] Comment on above: Performed By: #### L 100.0100, L500.2500 ####[facility] [address] [place], [address] WBC (Bld) [#/Vol] 12.2 10*3/uL High 4.4-11.0 [facility] Comment on above: Performed By: #### L 100.0100, L500.2500 ####[facility] [address] [place], [address] HH, Hemoglobin AND Hematocri ton 04-30-2025 Hematocrit (Bld) [Volume fraction] 24.2 % Low 37-47 [facility] Comment on above: Performed By: #### L 100.0600 ####[facility] [address] [place], [address] Hemoglobin (Bld) [Mass/Vol] 7.7 g/dL Low 12.0-15.0 [facility] Comment on above: Performed By: #### L 100.0600 ####[facility] [address] [place], [address] Type AND Screenon 04-30-2025 Ab SCREEN GEL Negative Normal [facility] Comment on above: Order Comment: CMV N EG? NNumber of units to transfuse: 1Is pt's Hgb is = to 7.0 mg/dl or Hct </= 21%? YReason for Ordering Blood: ChronicAre the blood/blood products to be transfused? YIs the patient having/had surgery? Alisa Saavedra Performed By: #### B TS, BRC ####[facility] [address] [place], [address] Basic Metabolic Profile (BMP )on 04-29-2025 BUN/CRE 26.9 RATIO High 10- [facility] Comment on above: Performed By: #### L 100.0100, L500.2500 ####[facility] [address] [place], [address] Calcium [Mass/Vol] 8.5 mg/dL Normal 7.6-11.0 [facility] Comment on above: Performed By: #### L 100.0100, L500.2500 ####[facility] [address] [place], [address] Chloride [Moles/Vol] 106 mmol/L Normal 98-108 [facility] Comment on above: Performed By: #### L 100.0100, L500.2500 ####[facility] [address] [place], [address] CO2 [Moles/Vol] 24.4 mmol/L Normal 21.0-32.0 [facility] Comment on above: Performed By: #### L 100.0100, L500.2500 ####[facility] [address] [place], [address] Creatinine [Mass/Vol] 1.13 mg/dL Normal 0.70-1.20 [facility] Comment on above: Performed By: #### L 100.0100, L500.2500 ####[facility] [address] [place], [address] ECRCL 38.07 ml/min Low 50-250 [facility] Comment on above: Performed By: #### L 100.0100, L500.2500 ####[facility] [address] [place], [address] GAP 10 Normal 5-15 [facility] Comment on above: Performed By: #### L 100.0100, L500.2500 ####[facility] [address] [place], [address] GFR/1.73 sq M.predicted among non-blacks MDRD (S/P/Bld) [Vol rate/Area] 48 mL/min/{1.73_m2} Low >60 [facility] Comment on above: Result Comment: mL/m in/1.73m2 CKD-EPI Creatinine Equation (2020) Performed By: #### L 100.0100, L500.2500 ####[facility] [address] [place], [address] Glucose [Mass/Vol] 104 mg/dL High 70-99 [facility] Comment on above: Performed By: #### L 100.0100, L500.2500 ####[facility] [address] [place], [address] Potassium [Moles/Vol] 4.0 mmol/L Normal 3.3-5.1 [facility] Comment on above: Performed By: #### L 100.0100, L500.2500 ####[facility] [address] [place], [address] Sodium [Moles/Vol] 141 mmol/L Normal 133-145 [facility] Comment on above: Performed By: #### L 100.0100, L500.2500 ####[facility] [address] [place], [address] Urea nitrogen [Mass/Vol] 30 mg/dL High 4-19 [facility] Comment on above: Performed By: #### L 100.0100, L500.2500 ####[facility] [address] [place], [address] Bedside Glucoseon - FINGERSTICK GLU 109 mg/dL High 74-106 [facility] Comment on above: Result Comment: RUSSELL GEMENT OF PATIENT CARE PER NURSING PROTOCOL Performed By: #### L 501.080 ####[facility] [address] [place], [address] FINGERSTICK GLU 110 mg/dL High 74-106 [facility] Comment on above: Result Comment: URSSELL GEMENT OF PATIENT CARE PER NURSING PROTOCOL Performed By: #### L 501.080 ####[facility] [address] [place], [address] FINGERSTICK GLU 89 mg/dL Normal 74-106 [facility] Comment on above: Result Comment: RUSESLL GEMENT OF PATIENT CARE PER NURSING PROTOCOL Performed By: #### L 501.080 ####[facility] [address] [place], [address] FINGERSTICK GLU 92 mg/dL Normal 74-106 [facility] Comment on above: Result Comment: RUSSELL GEMENT OF PATIENT CARE PER NURSING PROTOCOL Performed By: #### L 501.080 ####[facility] [address] [place], [address] CBC W/Diff, Automatedon 06-0 Absolute Lymph 1.10 X10 3/uL Normal 0.83-4.51 [facility] Comment on above: Performed By: #### L 100.0100, L500.2500 ####[facility] [address] [place], [address] Absolute Neut 10.8 X10 3/uL High 2.0-7.7 [facility] Comment on above: Performed By: #### L 100.0100, L500.2500 ####[facility] [address] [place], [address] Basophils/100 WBC (Bld) 0.6 % Normal 0-1 [facility] Comment on above: Performed By: #### L 100.0100, L500.2500 ####[facility] [address] [place], [address] Eosinophils/100 WBC (Bld) 2.4 % Normal 0-5 [facility] Comment on above: Performed By: #### L 100.0100, L500.2500 ####[facility] [address] [place], [address] Erythrocyte distribution width (RBC) [Ratio] 16.5 % High 11.6-14.6 [facility] Comment on above: Performed By: #### L 100.0100, L500.2500 ####[facility] [address] [place], [address] Hematocrit (Bld) [Volume fraction] 24.9 % Low 37-47 [facility] Comment on above: Performed By: #### L 100.0100, L500.2500 ####[facility] [address] [place], [address] Hemoglobin (Bld) [Mass/Vol] 7.9 g/dL Low 12.0-15.0 [facility] Comment on above: Performed By: #### L 100.0100, L500.2500 ####[facility] [address] [place], [address] IG% 0.800 Normal 0.0-0.9 [facility] Comment on above: Result Comment: IG% - Immature Granulocytes (promyelocytes, myelocytes andmetamyelocytes) > 1% indicates that a LEFT SHIFT is Present. Performed By: #### L 100.0100, L500.2500 ####[facility] [address] [place], [address] Lymphocytes/100 WBC (Bld) 8.3 % Low 19-41 [facility] Comment on above: Performed By: #### L 100.0100, L500.2500 ####[facility] [address] [place], [address] MCH (RBC) [Entitic mass] 28.8 pg Normal 27.0-32.0 [facility] Comment on above: Performed By: #### L 100.0100, L500.2500 ####[facility] [address] [place], [address] MCHC (RBC) [Mass/Vol] 31.7 g/dL Low 32-36 [facility] Comment on above: Performed By: #### L 100.0100, L500.2500 ####[facility] [address] [place], [address] MCV (RBC) [Entitic vol] 90.9 fL Normal 81-99 [facility] Comment on above: Performed By: #### L 100.0100, L500.2500 ####[facility] [address] [place], [address] Monocytes/100 WBC (Bld) 6.2 % Normal 0-10 [facility] Comment on above: Performed By: #### L 100.0100, L500.2500 ####[facility] [address] [place], [address] Neutrophils/100 WBC (Bld) 81.7 % High 47-70 [facility] Comment on above: Performed By: #### L 100.0100, L500.2500 ####[facility] [address] [place], [address] Nucleated RBC (Bld) [#/Vol] 0.2 10*3/uL Normal 0-5 [facility] Comment on above: Performed By: #### L 100.0100, L500.2500 ####[facility] [address] [place], [address] Platelet mean volume (Bld) [Entitic vol] 10.1 fL Normal 6.2-12.0 [facility] Comment on above: Performed By: #### L 100.0100, L500.2500 ####[facility] [address] [place], [address] Platelets (Bld) [#/Vol] 272 10*3/uL Normal 150-450 [facility] Comment on above: Performed By: #### L 100.0100, L500.2500 ####[facility] [address] [place], [address] RBC (Bld) [#/Vol] 2.74 10*6/uL Low 4.2-5.4 [facility] Comment on above: Performed By: #### L 100.0100, L500.2500 ####[facility] [address] [place], [address] RDW SD 53.1 fl High 35.1-43.9 [facility] Comment on above: Performed By: #### L 100.0100, L500.2500 ####[facility] [address] [place], [address] WBC (Bld) [#/Vol] 13.2 10*3/uL High 4.4-11.0 [facility] Comment on above: Performed By: #### L 100.0100, L500.2500 ####[facility] [address] [place], [address] CNPNon 04-29-2025 CNPN Normal [facility] Chest 1 View (Portable)on Chest 1 View (Portable) Normal [facility] Colonoscopy Reporton 025 Colonoscopy Report Normal [facility] Cytology, Body Fluid / CSFon 04-29-2025 CYTOLOGY,BF/CSF SEE PATHOLOGY REPORT Normal [facility] Comment on above: Result Comment: Spec imen submitted to Anatomical Pathology Department fortesting. Performed By: #### M 100.4001, L350.1000, M100.2900, L504.0250, M100.2000, L503.0300, L200.0200, L503.0100 ####[facility] [address] [place], [address] EGD Reporton 04-29-2025 EGD Report Normal [facility] Electrocardiogram reportOrde red By: Adi Verduzco on 04-29-2025 EKG study [facility] Other Phone: MR/POSTOP.ANEon 04-29-2025 MR/POSTOP.ANE Normal [facility] MR/VBNCNOUB1hz 04-29-2025 MR/POSTOPAN2 Normal [facility] Bedside Glucoseon 04-28-2025 FINGERSTICK GLU 77 mg/dL Normal 74-106 [facility] Comment on above: Result Comment: RUSSELL GEMENT OF PATIENT CARE PER NURSING PROTOCOL Performed By: #### L 501.080 ####[facility] [address] [place], [address] FINGERSTICK GLU 90 mg/dL Normal 74-106 [facility] Comment on above: Result Comment: RUSSELL GEMENT OF PATIENT CARE PER NURSING PROTOCOL Performed By: #### L 501.080 ####[facility] [address] [place], [address] FINGERSTICK GLU 85 mg/dL Normal 74-106 [facility] Comment on above: Result Comment: RUSSELL GEMENT OF PATIENT CARE PER NURSING PROTOCOL Performed By: #### L 501.080 ####[facility] [address] [place], [address] Bilirubin, totalOrdered By: Dayana Abel on 04-28-2025 Bilirubin [Mass/Vol] 0.35 mg/dL 0.00-1.30 [facility] CBC W/Diff, Automatedon 06-0 8-2025 Absolute Lymph 1.54 X10 3/uL Normal 0.83-4.51 [facility] Comment on above: Performed By: #### L 500.4050, L501.5200, L100.0100 ####[facility] [address] [place], [address] Absolute Neut 9.0 X10 3/uL High 2.0-7.7 [facility] Comment on above: Performed By: #### L 500.4050, L501.5200, L100.0100 ####[facility] [address] [place], [address] Basophils/100 WBC (Bld) 0.6 % Normal 0-1 [facility] Comment on above: Performed By: #### L 500.4050, L501.5200, L100.0100 ####[facility] [address] [place], [address] Eosinophils/100 WBC (Bld) 3.2 % Normal 0-5 [facility] Comment on above: Performed By: #### L 500.4050, L501.5200, L100.0100 ####[facility] [address] [place], [address] Erythrocyte distribution width (RBC) [Ratio] 16.3 % High 11.6-14.6 [facility] Comment on above: Performed By: #### L 500.4050, L501.5200, L100.0100 ####[facility] [address] [place], [address] Hematocrit (Bld) [Volume fraction] 22.5 % Low 37-47 [facility] Comment on above: Performed By: #### L 500.4050, L501.5200, L100.0100 ####[facility] [address] [place], [address] Hemoglobin (Bld) [Mass/Vol] 7.3 g/dL Low 12.0-15.0 [facility] Comment on above: Performed By: #### L 500.4050, L501.5200, L100.0100 ####[facility] [address] [place], [address] IG% 1.200 High 0.0-0.9 [facility] Comment on above: Result Comment: IG% - Immature Granulocytes (promyelocytes, myelocytes andmetamyelocytes) > 1% indicates that a LEFT SHIFT is Present. Performed By: #### L 500.4050, L501.5200, L100.0100 ####[facility] [address] [place], [address] Lymphocytes/100 WBC (Bld) 12.8 % Low 19-41 [facility] Comment on above: Performed By: #### L 500.4050, L501.5200, L100.0100 ####[facility] [address] [place], [address] MCH (RBC) [Entitic mass] 28.6 pg Normal 27.0-32.0 [facility] Comment on above: Performed By: #### L 500.4050, L501.5200, L100.0100 ####[facility] [address] [place], [address] MCHC (RBC) [Mass/Vol] 32.4 g/dL Normal 32-36 [facility] Comment on above: Performed By: #### L 500.4050, L501.5200, L100.0100 ####[facility] [address] [place], [address] MCV (RBC) [Entitic vol] 88.2 fL Normal 81-99 [facility] Comment on above: Performed By: #### L 500.4050, L501.5200, L100.0100 ####[facility] [address] [place], [address] Monocytes/100 WBC (Bld) 7.2 % Normal 0-10 [facility] Comment on above: Performed By: #### L 500.4050, L501.5200, L100.0100 ####[facility] [address] [place], [address] Neutrophils/100 WBC (Bld) 75.0 % High 47-70 [facility] Comment on above: Performed By: #### L 500.4050, L501.5200, L100.0100 ####[facility] [address] [place], [address] Nucleated RBC (Bld) [#/Vol] 0 10*3/uL Normal 0-5 [facility] Comment on above: Performed By: #### L 500.4050, L501.5200, L100.0100 ####[facility] [address] [place], [address] Platelet mean volume (Bld) [Entitic vol] 10.3 fL Normal 6.2-12.0 [facility] Comment on above: Performed By: #### L 500.4050, L501.5200, L100.0100 ####[facility] [address] [place], [address] Platelets (Bld) [#/Vol] 238 10*3/uL Normal 150-450 [facility] Comment on above: Performed By: #### L 500.4050, L501.5200, L100.0100 ####[facility] [address] [place], [address] RBC (Bld) [#/Vol] 2.55 10*6/uL Low 4.2-5.4 [facility] Comment on above: Performed By: #### L 500.4050, L501.5200, L100.0100 ####[facility] [address] [place], [address] RDW SD 51.1 fl High 35.1-43.9 [facility] Comment on above: Performed By: #### L 500.4050, L501.5200, L100.0100 ####[facility] [address] [place], [address] WBC (Bld) [#/Vol] 12.0 10*3/uL High 4.4-11.0 [facility] Comment on above: Performed By: #### L 500.4050, L501.5200, L100.0100 ####[facility] [address] [place], [address] Comprehensive Metabolic Prof ilon 04-28-2025 Albumin [Mass/Vol] 2.3 g/dL Low 3.4-4.8 [facility] Comment on above: Performed By: #### L 500.4050, L501.5200, L100.0100 ####[facility] [address] [place], [address] Albumin/Globulin [Mass ratio] 1.0 {ratio} Normal 0.9-2.4 [facility] Comment on above: Performed By: #### L 500.4050, L501.5200, L100.0100 ####[facility] [address] [place], [address] ALK PHOS 61 U/L Normal 35-104 [facility] Comment on above: Performed By: #### L 500.4050, L501.5200, L100.0100 ####[facility] [address] [place], [address] ALT [Catalytic activity/Vol] 16 U/L Normal <=34 [facility] Comment on above: Performed By: #### L 500.4050, L501.5200, L100.0100 ####[facility] [address] [place], [address] AST [Catalytic activity/Vol] 26 U/L Normal <=31 [facility] Comment on above: Performed By: #### L 500.4050, L501.5200, L100.0100 ####[facility] [address] [place], [address] Bilirubin [Mass/Vol] 0.35 mg/dL Normal 0.00-1.30 [facility] Comment on above: Performed By: #### L 500.4050, L501.5200, L100.0100 ####[facility] [address] [place], [address] BUN/CRE 33.2 RATIO High 10-20 [facility] Comment on above: Performed By: #### L 500.4050, L501.5200, L100.0100 ####[facility] [address] [place], [address] Calcium [Mass/Vol] 8.1 mg/dL Normal 7.6-11.0 [facility] Comment on above: Performed By: #### L 500.4050, L501.5200, L100.0100 ####[facility] [address] [place], [address] Chloride [Moles/Vol] 107 mmol/L Normal 98-108 [facility] Comment on above: Performed By: #### L 500.4050, L501.5200, L100.0100 ####[facility] [address] [place], [address] CO2 [Moles/Vol] 24.0 mmol/L Normal 21.0-32.0 [facility] Comment on above: Performed By: #### L 500.4050, L501.5200, L100.0100 ####[facility] [address] [place], [address] Creatinine [Mass/Vol] 1.11 mg/dL Normal 0.70-1.20 [facility] Comment on above: Performed By: #### L 500.4050, L501.5200, L100.0100 ####[facility] [address] [place], [address] ECRCL 39.93 ml/min Low 50-250 [facility] Comment on above: Performed By: #### L 500.4050, L501.5200, L100.0100 ####[facility] [address] [place], [address] GAP 9 Normal 5-15 [facility] Comment on above: Performed By: #### L 500.4050, L501.5200, L100.0100 ####[facility] [address] [place], [address] GFR/1.73 sq M.predicted among non-blacks MDRD (S/P/Bld) [Vol rate/Area] 49 mL/min/{1.73_m2} Low >60 [facility] Comment on above: Result Comment: mL/m in/1.73m2 CKD-EPI Creatinine Equation (2020) Performed By: #### L 500.4050, L501.5200, L100.0100 ####[facility] [address] [place], [address] Globulin (S) [Mass/Vol] 2.4 g/dL Normal 2.2-4.2 [facility] Comment on above: Performed By: #### L 500.4050, L501.5200, L100.0100 ####[facility] [address] [place], [address] Glucose [Mass/Vol] 119 mg/dL High 70-99 [facility] Comment on above: Performed By: #### L 500.4050, L501.5200, L100.0100 ####[facility] [address] [place], [address] Potassium [Moles/Vol] 3.9 mmol/L Normal 3.3-5.1 [facility] Comment on above: Performed By: #### L 500.4050, L501.5200, L100.0100 ####[facility] [address] [place], [address] Sodium [Moles/Vol] 140 mmol/L Normal 133-145 [facility] Comment on above: Performed By: #### L 500.4050, L501.5200, L100.0100 ####[facility] [address] [place], [address] T PROT 4.6 g/dL Low 5.9-8.4 [facility] Comment on above: Performed By: #### L 500.4050, L501.5200, L100.0100 ####[facility] [address] [place], [address] Urea nitrogen [Mass/Vol] 37 mg/dL High 4-19 [facility] Comment on above: Performed By: #### L 500.4050, L501.5200, L100.0100 ####[facility] [address] [place], [address] HH, Hemoglobin AND Hematocri ton 04-28-2025 Hematocrit (Bld) [Volume fraction] 26.3 % Low 37-47 [facility] Comment on above: Performed By: #### L 100.0600 ####[facility] [address] [place], [address] Hemoglobin (Bld) [Mass/Vol] 8.3 g/dL Low 12.0-15.0 [facility] Comment on above: Performed By: #### L 100.0600 ####[facility] [address] [place], [place], [id number] Magnesiumon 04-28-2025 Magnesium [Mass/Vol] 1.7 mg/dL Normal 1.5-2.2 [facility] Comment on above: Performed By: #### L 500.4050, L501.5200, L100.0100 ####[facility] [address] [facility] [place], [place], [id number] Magnesium measurement (mass/ volume)Ordered By: Dayana Abel on 04-28-2025 Magnesium (Unsp spec) [Mass/Vol] 1.7 mg/dL 1.5-2.2 [facility] No Panel InformationOrdered By: Dayana Abel on 04-28-2025 26 U/L <32 [facility] Serum globulin measurementOr dered By: Dayana Abel on 04-28-2025 Globulin (S) [Mass/Vol] 2.4 g/dL 2.2-4.2 [facility] Serum or plasma alanine albert otransferase (ALT) measurementOrdered By: Dayana Abel on 04-28-2025 ALT [Catalytic activity/Vol] 16 U/L <35 [facility] Serum or plasma albumin allan urement (mass/volume)Ordered By: Dayana Abel on 04-28-2025 Albumin [Mass/Vol] 2.3 g/dL Low 3.4-4.8 [facility] Serum or plasma albumin/glob ulin mass ratioOrdered By: Dayana Abel on 04-28-2025 Albumin/Globulin [Mass ratio] 1.0 {ratio} 0.9-2.4 [facility] Serum or plasma alkaline massimo sphatase measurementOrdered By: Dayana Abel on 04-28-2025 ALP [Catalytic activity/Vol] 61 U/L 35-104 [facility] Total proteinOrdered By: Birdie Abel on 04-28-2025 Protein [Mass/Vol] 4.6 g/dL Low 5.9-8.4 [facility] Basic Metabolic Profile (BMP )on 04-27-2025 BUN Normal 4-19 [facility] Comment on above: Result Comment: Canc elled via OM: Order cancelled - Patient discharged Performed By: #### L 500.2500, L100.0100 ####[facility] [address] [place], [address] BUN/CRE Normal 10-20 [facility] Comment on above: Result Comment: Canc elled via OM: Order cancelled - Patient discharged Performed By: #### L 500.2500, L100.0100 ####[facility] [address] [place], [address] Calcium Normal 7.6-11.0 [facility] Comment on above: Result Comment: Canc elled via OM: Order cancelled - Patient discharged Performed By: #### L 500.2500, L100.0100 ####[facility] [address] [place], [address] CL Normal 98-108 [facility] Comment on above: Result Comment: Canc elled via OM: Order cancelled - Patient discharged Performed By: #### L 500.2500, L100.0100 ####[facility] [address] [place], [address] CO2 Normal 21.0-32.0 [facility] Comment on above: Result Comment: Canc elled via OM: Order cancelled - Patient discharged Performed By: #### L 500.2500, L100.0100 ####[facility] [address] [place], [address] CREAT,SERUM Normal 0.70-1.20 [facility] Comment on above: Result Comment: Canc elled via OM: Order cancelled - Patient discharged Performed By: #### L 500.2500, L100.0100 ####[facility] [address] [place], [address] eGFR Normal >60 [facility] Comment on above: Result Comment: Canc elled via OM: Order cancelled - Patient discharged Performed By: #### L 500.2500, L100.0100 ####[facility] [address] [place], [address] GAP Normal 5-15 [facility] Comment on above: Result Comment: Canc elled via OM: Order cancelled - Patient discharged Performed By: #### L 500.2500, L100.0100 ####[facility] [address] [place], [address] GLU Normal 70-99 [facility] Comment on above: Result Comment: Canc elled via OM: Order cancelled - Patient discharged Performed By: #### L 500.2500, L100.0100 ####[facility] [address] [place], [address] Potassium Normal 3.3-5.1 [facility] Comment on above: Result Comment: Canc elled via OM: Order cancelled - Patient discharged Performed By: #### L 500.2500, L100.0100 ####[facility] [address] [place], [address] Basic Metabolic Profile (BMP) Normal 133-145 [facility] Comment on above: Result Comment: Canc elled via OM: Order cancelled - Patient discharged Performed By: #### L 500.2500, L100.0100 ####[facility] [address] [place], [address] Bedside Glucoseon 04-27-2025 FINGERSTICK GLU 97 mg/dL Normal 74-106 [facility] Comment on above: Result Comment: RUSSELL GEMENT OF PATIENT CARE PER NURSING PROTOCOL Performed By: #### L 501.080 ####[facility] [address] [place], [address] FINGERSTICK GLU 107 mg/dL High 74-106 [facility] Comment on above: Result Comment: RUSSELL GEMENT OF PATIENT CARE PER NURSING PROTOCOL Performed By: #### L 501.080 ####[facility] [address] [place], [address] FINGERSTICK GLU 133 mg/dL High 74-106 [facility] Comment on above: Result Comment: RUSSELL GEMENT OF PATIENT CARE PER NURSING PROTOCOL Performed By: #### L 501.080 ####[facility] [address] [place], [address] FINGERSTICK GLU 110 mg/dL High 74-106 [facility] Comment on above: Result Comment: RUSSELL GEMENT OF PATIENT CARE PER NURSING PROTOCOL Performed By: #### L 501.080 ####[facility] [address] [place], [address] CBC W/Diff, Automatedon 06-0 -2024 Absolute Neut Normal 2.0-7.7 [facility] Comment on above: Result Comment: Canc elled via OM: Order cancelled - Patient discharged Performed By: #### L 500.2500, L100.0100 ####[facility] [address] [place], [address] HCT Normal 37-47 [facility] Comment on above: Result Comment: Canc elled via OM: Order cancelled - Patient discharged Performed By: #### L 500.2500, L100.0100 ####[facility] [address] [place], [address] HGB Normal 12.0-15.0 [facility] Comment on above: Result Comment: Canc elled via OM: Order cancelled - Patient discharged Performed By: #### L 500.2500, L100.0100 ####[facility] [address] [place], [address] MCH Normal 27.0-32.0 [facility] Comment on above: Result Comment: Canc elled via OM: Order cancelled - Patient discharged Performed By: #### L 500.2500, L100.0100 ####[facility] [address] [place], [address] MCHC Normal 32-36 [facility] Comment on above: Result Comment: Canc elled via OM: Order cancelled - Patient discharged Performed By: #### L 500.2500, L100.0100 ####[facility] [address] [place], [address] MCV Normal 81-99 [facility] Comment on above: Result Comment: Canc elled via OM: Order cancelled - Patient discharged Performed By: #### L 500.2500, L100.0100 ####[facility] [address] [place], [address] NEUT% Normal 47-70 [facility] Comment on above: Result Comment: Canc elled via OM: Order cancelled - Patient discharged Performed By: #### L 500.2500, L100.0100 ####[facility] [address] [place], [address] PLT Normal 150-450 [facility] Comment on above: Result Comment: Canc elled via OM: Order cancelled - Patient discharged Performed By: #### L 500.2500, L100.0100 ####[facility] [address] [place], [address] RBC Normal 4.2-5.4 [facility] Comment on above: Result Comment: Canc elled via OM: Order cancelled - Patient discharged Performed By: #### L 500.2500, L100.0100 ####[facility] [address] [place], [address] RDW CV Normal 11.6-14.6 [facility] Comment on above: Result Comment: Canc elled via OM: Order cancelled - Patient discharged Performed By: #### L 500.2500, L100.0100 ####[facility] [address] [place], [address] RDW SD Normal 35.1-43.9 [facility] Comment on above: Result Comment: Canc elled via OM: Order cancelled - Patient discharged Performed By: #### L 500.2500, L100.0100 ####[facility] [address] [place], [address] WBC Normal 4.4-11.0 [facility] Comment on above: Result Comment: Canc elled via OM: Order cancelled - Patient discharged Performed By: #### L 500.2500, L100.0100 ####[facility] [address] [place], [address] Consultation - Intensiviston 04-27-2025 Consultation - Mold Blower Normal [facility] Culture, Anaerobic Any Sourc deangelo 04-27-2025 CUAN No growth in 5 days. Normal [facility] Comment on above: Performed By: #### M 100.4001, L350.1000, M100.2900, L504.0250, M100.2000, L503.0300, L200.0200, L503.0100 ####[facility] [address] [place], [address] H AND P Exam - Hospitaliston 04-27-2025 H&P Exam - Hospitalist Normal [facility] HH, Hemoglobin AND Hematocri ton 04-27-2025 HCT Normal [address] [place] [address] Comment on above: Result Comment: OK T O CANCEL PER SHARONDAICU Performed By: #### L 100.0600 ####[facility] [address] [place], [address] HGB Normal 12.0-15.0 [facility] Comment on above: Result Comment: OK T O CANCEL PER SHARONDA,ICU Performed By: #### L 100.0600 ####[facility] [address] [place], [address] HCT Normal [address] Comment on above: Result Comment: OK T O CANCEL PER SHARONDA,ICU Performed By: #### L 100.0600 ####[facility] [address] [place], [address] HGB Normal 12.0-15.0 [facility] Comment on above: Result Comment: GILBERTO DAY PER KYLER MCDONOUGH Performed By: #### L 100.0600 ####[facility] [address] [place], [address] Hematocrit (Bld) [Volume fraction] 24.0 % Low -[address] [place] [address] Comment on above: Performed By: #### L 100.0600 ####[facility] [address] [place], [address] Hemoglobin (Bld) [Mass/Vol] 7.9 g/dL Low 12.0-15.0 [facility] Comment on above: Performed By: #### L 100.0600 ####[facility] [address] [place], [address] HCT Normal [address] [place] [address] Comment on above: Result Comment: SEE H113 Performed By: #### L 100.0600 ####[facility] [address] [place], [address] HGB Normal 12.0-15.0 [facility] Comment on above: Result Comment: SEE H113 Performed By: #### L 100.0600 ####[facility] [address] [place], [address] HCT Normal [address] [place] [address] Comment on above: Result Comment: SPEC IMEN NOT COLLECTED Performed By: #### L 100.0600 ####[facility] [address] [place], [address] HGB Normal 12.0-15.0 [facility] Comment on above: Result Comment: SPEC IMEN NOT COLLECTED Performed By: #### L 100.0600 ####[facility] [address] [place], [address] Hematocrit (Bld) [Volume fraction] 25.4 % Low 37-47 [facility] Comment on above: Performed By: #### L 100.0600 ####[facility] [address] [place], [address] Hemoglobin (Bld) [Mass/Vol] 8.3 g/dL Low 12.0-15.0 [facility] Comment on above: Performed By: #### L 100.0600 ####[facility] [address] [place], [address] HCT Normal 37-47 [facility] Comment on above: Result Comment: SEE H73 DRAWN AT 0535 Performed By: #### L 100.0600 ####[facility] [address] [place], [address] HGB Normal 12.0-15.0 [facility] Comment on above: Result Comment: SEE H73 DRAWN AT 0535 Performed By: #### L 100.0600 ####[facility] [address] [place], [address] M8200.1075on 04-27-2025 M8200.1075 Pending MRSA PCR MRSA NEGATIVE STAPH. AUREUS PCR STAPH. AUREUS NEGATIVE Normal [facility] Comment on above: Performed By: #### M 8200.1075 ####[facility] [address] [place], [address] MR/CON.PCM.GIon 04-27-2025 MR/CON.PCM.GI Normal [facility] 12 Lead EKGon 04-26-2025 12 Lead EKG Normal [facility] Absolute lymphocyte countOrd ered By: Sammy Guerrero on 04-26-2025 Lymphocytes Auto (Unsp spec) [#/Vol] 1.55 10*3/uL 0.83-4.51 [facility] Absolute lymphocyte countOrd ered By: Amado Bailey on 04-26-2025 Lymphocytes Auto (Unsp spec) [#/Vol] 0.95 10*3/uL 0.83-4.51 [facility] Activated partial thrombopla stin time (aPTT) in platelet poor plasma by coagulation aOrdered By: Sammy Guerrero on 04-26-2025 aPTT Coag (PPP) [Time] 31.6 s 24.1-36.2 [facility] Anion gap in Serum or Plasma Ordered By: Sammy Guerrero on 04-26-2025 Anion gap [Moles/Vol] 12 mmol/L 04-04 [facility] Anion gap in Serum or Plasma Ordered By: Amado Bailey on 04-26-2025 Anion gap [Moles/Vol] 7 mmol/L 04-04 [facility] Automated lymphocyte count a s percentage of total leukocytesOrdered By: Sammy Guerrero on 04-26-2025 Lymphocytes/100 WBC Auto (Unsp spec) 11.3 % Low -41 [facility] Automated lymphocyte count a s percentage of total leukocytesOrdered By: Amado Bailey on 04-26-2025 Lymphocytes/100 WBC Auto (Unsp spec) 8.5 % Low 19-41 [facility] BRCon 04-26-2025 RC Normal [facility] Comment on above: Result Comment: [id number] OP RC TRANSFUSED 04/27/25 [id number] OP RC TRANSFUSED 04/26/257 Performed By: #### B [facility] ####[facility] [address] [place], [place], [id number] BUN/creatinine ratioOrdered By: Sammy Guerrero on 04-26-2025 Urea nitrogen/Creatinine [Mass ratio] 39.6 mg/mg [address] BUN/creatinine ratioOrdered By: Amado Bailey on 04-26-2025 Urea nitrogen/Creatinine [Mass ratio] 39.6 mg/mg [address] Basic Metabolic Profile (BMP )on 04-26-2025 BUN/CRE 39.[address] Comment on above: Performed By: #### L 100.0100, L300.3900, L500.2500, L300.4310 ####[facility] [address] [place], [address] Calcium [Mass/Vol] 8.4 mg/dL Normal 7.6-11.0 [facility] Comment on above: Performed By: #### L 100.0100, L300.3900, L500.2500, L300.4310 ####[facility] [address] [place], [address] Chloride [Moles/Vol] 105 mmol/L Normal 98-108 [facility] Comment on above: Performed By: #### L 100.0100, L300.3900, L500.2500, L300.4310 ####[facility] [address] [place], [address] CO2 [Moles/Vol] 22.7 mmol/L Normal 21.0-32.0 [facility] Comment on above: Performed By: #### L 100.0100, L300.3900, L500.2500, L300.4310 ####[facility] [address] [place], [address] Creatinine [Mass/Vol] 1.39 mg/dL High 0.70-1.20 [facility] Comment on above: Performed By: #### L 100.0100, L300.3900, L500.2500, L300.4310 ####[facility] [address] [place], [address] ECRCL 31.24 ml/min Low 50-250 [facility] Comment on above: Performed By: #### L 100.0100, L300.3900, L500.2500, L300.4310 ####[facility] [address] [place], [address] GAP 12 Normal 5-15 [facility] Comment on above: Performed By: #### L 100.0100, L300.3900, L500.2500, L300.4310 ####[facility] [address] [place], [address] GFR/1.73 sq M.predicted among non-blacks MDRD (S/P/Bld) [Vol rate/Area] 37 mL/min/{1.73_m2} Low >60 [facility] Comment on above: Result Comment: mL/m in/1.73m2 CKD-EPI Creatinine Equation (2020) Performed By: #### L 100.0100, L300.3900, L500.2500, L300.4310 ####[facility] [address] [place], [address] Glucose [Mass/Vol] 183 mg/dL High 70-99 [facility] Comment on above: Performed By: #### L 100.0100, L300.3900, L500.2500, L300.4310 ####[facility] [address] [place], [address] Potassium [Moles/Vol] 4.6 mmol/L Normal 3.3-5.1 [facility] Comment on above: Performed By: #### L 100.0100, L300.3900, L500.2500, L300.4310 ####[facility] [address] [place], [address] Sodium [Moles/Vol] 140 mmol/L Normal 133-145 [facility] Comment on above: Performed By: #### L 100.0100, L300.3900, L500.2500, L300.4310 ####[facility] [address] [place], [address] Urea nitrogen [Mass/Vol] 55 mg/dL High 4-19 [facility] Comment on above: Performed By: #### L 100.0100, L300.3900, L500.2500, L300.4310 ####[facility] [address] [place], [address] BUN/CRE 39.6 RATIO High 10-20 [facility] Comment on above: Performed By: #### L 500.2500, L100.0100 ####[facility] [address] [place], [address] Calcium [Mass/Vol] 8.6 mg/dL Normal 7.6-11.0 [facility] Comment on above: Performed By: #### L 500.2500, L100.0100 ####[facility] [address] [place], [address] Chloride [Moles/Vol] 107 mmol/L Normal 98-108 [facility] Comment on above: Performed By: #### L 500.2500, L100.0100 ####[facility] [address] [place], [address] CO2 [Moles/Vol] 26.0 mmol/L Normal 21.0-32.0 [facility] Comment on above: Performed By: #### L 500.2500, L100.0100 ####[facility] [address] [place], [address] Creatinine [Mass/Vol] 1.15 mg/dL Normal 0.70-1.20 [facility] Comment on above: Performed By: #### L 500.2500, L100.0100 ####[facility] [address] [place], [address] ECRCL 37.22 ml/min Low 50-250 [facility] Comment on above: Performed By: #### L 500.2500, L100.0100 ####[facility] [address] [place], [address] GAP 7 Normal 5-15 [facility] Comment on above: Performed By: #### L 500.2500, L100.0100 ####[facility] [address] [place], [address] GFR/1.73 sq M.predicted among non-blacks MDRD (S/P/Bld) [Vol rate/Area] 47 mL/min/{1.73_m2} Low >60 [facility] Comment on above: Result Comment: mL/m in/1.73m2 CKD-EPI Creatinine Equation (2020) Performed By: #### L 500.2500, L100.0100 ####[facility] [address] [place], [address] Glucose [Mass/Vol] 150 mg/dL High 70-99 [facility] Comment on above: Performed By: #### L 500.2500, L100.0100 ####[facility] [address] [place], [address] Potassium [Moles/Vol] 4.0 mmol/L Normal 3.3-5.1 [facility] Comment on above: Performed By: #### L 500.2500, L100.0100 ####[facility] [address] [place], [address] Sodium [Moles/Vol] 140 mmol/L Normal 133-145 [facility] Comment on above: Performed By: #### L 500.2500, L100.0100 ####[facility] [address] [place], [address] Urea nitrogen [Mass/Vol] 46 mg/dL High 4-19 [facility] Comment on above: Performed By: #### L 500.2500, L100.0100 ####[facility] [address] [place], [address] Basophil percentageOrdered B y: Sammy Guerrero on 04-26-2025 Basophils/100 WBC (Bld) 0.4 % 0-1 [facility] Basophil percentageOrdered B y: Amado Bailey on 04-26-2025 Basophils/100 WBC (Bld) 0.4 % 0-1 [facility] Bedside Glucoseon 04-26-2025 FINGERSTICK GLU 142 mg/dL High 74-106 [facility] Comment on above: Result Comment: RUSSELL QUINTANILLA OF PATIENT CARE PER NURSING PROTOCOL Performed By: #### L 501.080 ####[facility] [address] [place], [address] CBC W/Diff, Automatedon 06-0 -2024 Absolute Lymph 1.55 X10 3/uL Normal 0.83-4.51 [facility] Comment on above: Performed By: #### L 100.0100, L300.3900, L500.2500, L300.4310 ####[facility] [address] [place], [address] Absolute Neut 11.1 X10 3/uL High 2.0-7.7 [facility] Comment on above: Performed By: #### L 100.0100, L300.3900, L500.2500, L300.4310 ####[facility] [address] [place], [address] Basophils/100 WBC (Bld) 0.4 % Normal 0-1 [facility] Comment on above: Performed By: #### L 100.0100, L300.3900, L500.2500, L300.4310 ####[facility] [address] [place], [address] Eosinophils/100 WBC (Bld) 0.8 % Normal 0-5 [facility] Comment on above: Performed By: #### L 100.0100, L300.3900, L500.2500, L300.4310 ####[facility] [address] [place], [address] Erythrocyte distribution width (RBC) [Ratio] 16.5 % High 11.6-14.6 [facility] Comment on above: Performed By: #### L 100.0100, L300.3900, L500.2500, L300.4310 ####[facility] [address] [place], [address] Hematocrit (Bld) [Volume fraction] 23.0 % Low 37-47 [facility] Comment on above: Performed By: #### L 100.0100, L300.3900, L500.2500, L300.4310 ####[facility] [address] [place], [address] Hemoglobin (Bld) [Mass/Vol] 7.1 g/dL Low 12.0-15.0 [facility] Comment on above: Performed By: #### L 100.0100, L300.3900, L500.2500, L300.4310 ####[facility] [address] [place], [address] IG% 1.700 High 0.0-0.9 [facility] Comment on above: Result Comment: IG% - Immature Granulocytes (promyelocytes, myelocytes andmetamyelocytes) > 1% indicates that a LEFT SHIFT is Present. Performed By: #### L 100.0100, L300.3900, L500.2500, L300.4310 ####[facility] [address] [place], [address] Lymphocytes/100 WBC (Bld) 11.3 % Low 19-41 [facility] Comment on above: Performed By: #### L 100.0100, L300.3900, L500.2500, L300.4310 ####[facility] [address] [place], [address] MCH (RBC) [Entitic mass] 27.7 pg Normal 27.0-32.0 [facility] Comment on above: Performed By: #### L 100.0100, L300.3900, L500.2500, L300.4310 ####[facility] [address] [place], [address] MCHC (RBC) [Mass/Vol] 30.9 g/dL Low 32-36 [facility] Comment on above: Performed By: #### L 100.0100, L300.3900, L500.2500, L300.4310 ####[facility] [address] [place], [address] MCV (RBC) [Entitic vol] 89.8 fL Normal 81-99 [facility] Comment on above: Performed By: #### L 100.0100, L300.3900, L500.2500, L300.4310 ####[facility] [address] [place], [address] Monocytes/100 WBC (Bld) 5.3 % Normal 0-10 [facility] Comment on above: Performed By: #### L 100.0100, L300.3900, L500.2500, L300.4310 ####[facility] [address] [place], [address] Neutrophils/100 WBC (Bld) 80.5 % High 47-70 [facility] Comment on above: Performed By: #### L 100.0100, L300.3900, L500.2500, L300.4310 ####[facility] [address] [place], [address] Nucleated RBC (Bld) [#/Vol] 0 10*3/uL Normal 0-5 [facility] Comment on above: Performed By: #### L 100.0100, L300.3900, L500.2500, L300.4310 ####[facility] [address] [place], [address] Platelet mean volume (Bld) [Entitic vol] 10.4 fL Normal 6.2-12.0 [facility] Comment on above: Performed By: #### L 100.0100, L300.3900, L500.2500, L300.4310 ####[facility] [address] [place], [address] Platelets (Bld) [#/Vol] 339 10*3/uL Normal 150-450 [facility] Comment on above: Performed By: #### L 100.0100, L300.3900, L500.2500, L300.4310 ####[facility] [address] [place], [address] RBC (Bld) [#/Vol] 2.56 10*6/uL Low 4.2-5.4 [facility] Comment on above: Performed By: #### L 100.0100, L300.3900, L500.2500, L300.4310 ####[facility] [address] [place], [address] RDW SD 53.1 fl High 35.1-43.9 [facility] Comment on above: Performed By: #### L 100.0100, L300.3900, L500.2500, L300.4310 ####[facility] [address] [place], [address] WBC (Bld) [#/Vol] 13.7 10*3/uL High 4.4-11.0 [facility] Comment on above: Performed By: #### L 100.0100, L300.3900, L500.2500, L300.4310 ####[facility] [address] [place], [address] Absolute Lymph 0.95 X10 3/uL Normal 0.83-4.51 [facility] Comment on above: Performed By: #### L 500.2500, L100.0100 ####[facility] [address] [place], [address] Absolute Neut 9.1 X10 3/uL High 2.0-7.7 [facility] Comment on above: Performed By: #### L 500.2500, L100.0100 ####[facility] [address] [place], [address] Basophils/100 WBC (Bld) 0.4 % Normal 0-1 [facility] Comment on above: Performed By: #### L 500.2500, L100.0100 ####[facility] [address] [place], [address] Eosinophils/100 WBC (Bld) 2.4 % Normal 0-5 [facility] Comment on above: Performed By: #### L 500.2500, L100.0100 ####[facility] [address] [place], [address] Erythrocyte distribution width (RBC) [Ratio] 16.3 % High 11.6-14.6 [facility] Comment on above: Performed By: #### L 500.2500, L100.0100 ####[facility] [address] [place], [address] Hematocrit (Bld) [Volume fraction] 26.7 % Low 37-47 [facility] Comment on above: Performed By: #### L 500.2500, L100.0100 ####[facility] [address] [place], [address] Hemoglobin (Bld) [Mass/Vol] 8.4 g/dL Low 12.0-15.0 [facility] Comment on above: Performed By: #### L 500.2500, L100.0100 ####[facility] [address] [place], [address] IG% 0.700 Normal 0.0-0.9 [facility] Comment on above: Result Comment: IG% - Immature Granulocytes (promyelocytes, myelocytes andmetamyelocytes) > 1% indicates that a LEFT SHIFT is Present. Performed By: #### L 500.2500, L100.0100 ####[facility] [address] [place], [address] Lymphocytes/100 WBC (Bld) 8.5 % Low 19-41 [facility] Comment on above: Performed By: #### L 500.2500, L100.0100 ####[facility] [address] [place], [address] MCH (RBC) [Entitic mass] 28.0 pg Normal 27.0-32.0 [facility] Comment on above: Performed By: #### L 500.2500, L100.0100 ####[facility] [address] [place], [address] MCHC (RBC) [Mass/Vol] 31.5 g/dL Low 32-36 [facility] Comment on above: Performed By: #### L 500.2500, L100.0100 ####[facility] [address] [place], [address] MCV (RBC) [Entitic vol] 89.0 fL Normal 81-99 [facility] Comment on above: Performed By: #### L 500.2500, L100.0100 ####[facility] [address] [place], [address] Monocytes/100 WBC (Bld) 5.8 % Normal 0-10 [facility] Comment on above: Performed By: #### L 500.2500, L100.0100 ####[facility] [address] [place], [address] Neutrophils/100 WBC (Bld) 82.2 % High 47-70 [facility] Comment on above: Performed By: #### L 500.2500, L100.0100 ####[facility] [address] [place], [address] Nucleated RBC (Bld) [#/Vol] 0 10*3/uL Normal 0-5 [facility] Comment on above: Performed By: #### L 500.2500, L100.0100 ####[facility] [address] [place], [address] Platelet mean volume (Bld) [Entitic vol] 9.9 fL Normal 6.2-12.0 [facility] Comment on above: Performed By: #### L 500.2500, L100.0100 ####[facility] [address] [place], [address] Platelets (Bld) [#/Vol] 297 10*3/uL Normal 150-450 [facility] Comment on above: Performed By: #### L 500.2500, L100.0100 ####[facility] [address] [place], [address] RBC (Bld) [#/Vol] 3.00 10*6/uL Low 4.2-5.4 [facility] Comment on above: Performed By: #### L 500.2500, L100.0100 ####[facility] [address] [place], [address] RDW SD 52.7 fl High 35.1-43.9 [facility] Comment on above: Performed By: #### L 500.2500, L100.0100 ####[facility] [address] [place], [address] WBC (Bld) [#/Vol] 11.1 10*3/uL High 4.4-11.0 [facility] Comment on above: Performed By: #### L 500.2500, L100.0100 ####[facility] [address] [place], [address] CNPNon 04-26-2025 CNPN Normal [facility] CNPTOUTREACHon 04-26-2025 CNPTOUTREACH Normal [facility] Carbon dioxide, total [Moles /volume] in Central venous bloodOrdered By: Sammy Guerrero on 04-26-2025 CO2 [Moles/Vol] 22.7 mmol/L 21.0-32.0 [facility] Carbon dioxide, total [Moles /volume] in Central venous bloodOrdered By: Amado Bailey on 04-26-2025 CO2 [Moles/Vol] 26.0 mmol/L 21.0-32.0 [facility] Chloride assayOrdered By: Azael Guerrero on 04-26-2025 Chloride [Moles/Vol] 105 mmol/L 98-108 [facility] Chloride assayOrdered By: Scotty Bailey on 04-26-2025 Chloride [Moles/Vol] 107 mmol/L 98-108 [facility] Emergency Department Summary on 04-26-2025 Emergency Department Summary Normal [facility] Eosinophil percentageOrdered By: Sammy Guerrero on 04-26-2025 Eosinophils/100 WBC (Bld) 0.8 % 0-5 [facility] Eosinophil percentageOrdered By: Amado Baliey on 04-26-2025 Eosinophils/100 WBC (Bld) 2.4 % 0-5 [facility] Erythrocyte distribution wid th ratioOrdered By: Sammy Guerrero on 04-26-2025 Erythrocyte distribution width (RBC) [Ratio] 16.5 % High 11.6-14.6 [facility] Erythrocyte distribution wid th ratioOrdered By: Amado Bailey on 04-26-2025 Erythrocyte distribution width (RBC) [Ratio] 16.3 % High 11.6-14.6 [facility] Erythrocyte distribution wid th standard deviationOrdered By: Sammy Guerrero on 04-26-2025 Erythrocyte distribution width (RBC) [Ratio] 53.1 fl High 35.1-43.9 [facility] Erythrocyte distribution wid th standard deviationOrdered By: Amado Bailey on 04-26-2025 Erythrocyte distribution width (RBC) [Ratio] 52.7 fl High 35.1-43.9 [facility] Glomerular filtration rate ( GFR) estimation/1.73 sq m using serum, plasma, or whole bOrdered By: Sammy Guerrero on 04-26-2025 GFR/1.73 sq M.predicted among non-blacks MDRD (S/P/Bld) [Vol rate/Area] 37 mL/min/{1.73_m2} Low >60 [facility] Glomerular filtration rate ( GFR) estimation/1.73 sq m using serum, plasma, or whole bOrdered By: Amado Bailey on 04-26-2025 GFR/1.73 sq M.predicted among non-blacks MDRD (S/P/Bld) [Vol rate/Area] 47 mL/min/{1.73_m2} Low >60 [facility] Glucose [facility] at [facility] deOrdered By: Amado Bailey on 04-26-2025 Glucose [Mass/Vol] 142 mg/dL High 74-106 [facility] Hematocrit Auto (Bld) [Volum e fraction]Ordered By: Sammy Guerrero on 04-26-2025 Hematocrit (Bld) [Volume fraction] 23.0 % Low 37-47 [facility] Hematocrit Auto (Bld) [Volum e fraction]Ordered By: Amado Bailey on 04-26-2025 Hematocrit (Bld) [Volume fraction] 26.7 % Low 37-47 [facility] Hemoglobin measurementOrdere d By: Sammy Guerrero on 04-26-2025 Hemoglobin (Bld) [Mass/Vol] 7.1 g/dL Low 12.0-15.0 [facility] Hemoglobin measurementOrdere d By: Amado Bailey on 04-26-2025 Hemoglobin (Bld) [Mass/Vol] 8.4 g/dL Low 12.0-15.0 [facility] Immature granulocytes/100 WB C Auto (Bld)Ordered By: Sammy Guerrero on 04-26-2025 Immature granulocytes/100 WBC (Bld) 1.700 % High 0.0-0.9 [facility] Immature granulocytes/100 WB C Auto (Bld)Ordered By: Amado Bailey on 04-26-2025 Immature granulocytes/100 WBC (Bld) 0.700 % 0.0-0.9 [facility] MCV (mean corpuscular volume ) determinationOrdered By: Sammy Guerrero on 04-26-2025 MCV (RBC) [Entitic vol] 89.8 fL 81-99 [facility] MCV (mean corpuscular volume ) determinationOrdered By: Amado Bailey on 04-26-2025 MCV (RBC) [Entitic vol] 89.0 fL 81-99 [facility] Mean corpuscular hemoglobin (MCH) determinationOrdered By: Sammy Guerrero on 04-26-2025 MCH (RBC) [Entitic mass] 27.7 pg 27.0-32.0 [facility] Mean corpuscular hemoglobin (MCH) determinationOrdered By: Amado Bailey on 04-26-2025 MCH (RBC) [Entitic mass] 28.0 pg 27.0-32.0 [facility] Monocyte percentageOrdered B y: Sammy Guerrero on 04-26-2025 Monocytes/100 WBC (Bld) 5.3 % 0-10 [facility] Monocyte percentageOrdered B y: Amado Bailey on 04-26-2025 Monocytes/100 WBC (Bld) 5.8 % 0-10 [facility] Neutrophil percentageOrdered By: Sammy Guerrero on 04-26-2025 Neutrophils/100 WBC (Bld) 80.5 % High 47-70 [facility] Neutrophil percentageOrdered By: Amado Bailey on 04-26-2025 Neutrophils/100 WBC (Bld) 82.2 % High 47-70 [facility] Partial Thromboplast Timeon 04-26-2025 aPTT Coag (Bld) [Time] 31.6 s Normal 24.1-36.2 [facility] Comment on above: Performed By: #### L 100.0100, L300.3900, L500.2500, L300.4310 ####[facility] [address] [place], [place], [id number] Platelet countOrdered By: Azael Guerrero on 04-26-2025 Platelets (Bld) [#/Vol] 339 10*3/uL 150-450 [facility] Platelet countOrdered By: Scotty Bailey on 04-26-2025 Platelets (Bld) [#/Vol] 297 10*3/uL 150-450 [facility] Potassium measurement (mass/ volume)Ordered By: Sammy Guerrero on 04-26-2025 Potassium (Unsp spec) [Mass/Vol] 4.6 mmol/L 3.3-5.1 [facility] Potassium measurement (mass/ volume)Ordered By: Amado Bailey on 04-26-2025 Potassium (Unsp spec) [Mass/Vol] 4.0 mmol/L 3.3-5.1 [facility] Prothrombin Time w/INRon INR Coag (PPP) [Relative time] 1.7 {INR} Normal [facility] Comment on above: Performed By: #### L 100.0100, L300.3900, L500.2500, L300.4310 ####[facility] [address] [place], [address] PT Coag (PPP) [Time] 20.4 s High 11.7-14.9 [facility] Comment on above: Performed By: #### L 100.0100, L300.3900, L500.2500, L300.4310 ####[facility] [address] [place], [address] Prothrombin timeOrdered By: Sammy Guerrero on 04-26-2025 PT Coag (PPP) [Time] 20.4 s High 11.7-14.9 [facility] RBC Auto (Bld) [#/Vol]Ordere d By: Sammy Guerrero on 04-26-2025 RBC (Bld) [#/Vol] 2.56 10*6/uL Low 4.2-5.4 [facility] RBC Auto (Bld) [#/Vol]Ordere d By: Amado Bailey on 04-26-2025 RBC (Bld) [#/Vol] 3.00 10*6/uL Low 4.2-5.4 [facility] Serum creatinine measurement (mass/volume)Ordered By: Sammy Guerrero on 04-26-2025 Creatinine [Mass/Vol] 1.39 mg/dL High 0.70-1.20 [facility] Serum creatinine measurement (mass/volume)Ordered By: Amado Bailey on 04-26-2025 Creatinine [Mass/Vol] 1.15 mg/dL 0.70-1.20 [facility] Serum glucose measurement (m ass/volume)Ordered By: Sammy Guerrero on 04-26-2025 Glucose [Mass/Vol] 183 mg/dL High 70 [facility] Serum glucose measurement (m ass/volume)Ordered By: Amado Bailey on 04-26-2025 Glucose [Mass/Vol] 150 mg/dL High 70 [facility] Serum or plasma calcium allan urement (mass/volume)Ordered By: Sammy Guerrero on 04-26-2025 Calcium [Mass/Vol] 8.4 mg/dL 7.6-11.0 [facility] Serum or plasma calcium allan urement (mass/volume)Ordered By: Amado Bailey on 04-26-2025 Calcium [Mass/Vol] 8.6 mg/dL 7.6-11.0 [facility] Serum or plasma urea nitroge n measurement (mass/volume)Ordered By: Sammy Guerrero on 04-26-2025 Urea nitrogen [Mass/Vol] 55 mg/dL High 03-09 [facility] Serum or plasma urea nitroge n measurement (mass/volume)Ordered By: Amado Bailey on 04-26-2025 Urea nitrogen [Mass/Vol] 46 mg/dL [facility] 03-09 [facility] Sodium levelOrdered By: Sammy Guerrero on 04-26-2025 Sodium [Moles/Vol] 140 mmol/L 133-145 [facility] Sodium levelOrdered By: Kalin Bailey on 04-26-2025 Sodium [Moles/Vol] 140 mmol/L 133-145 [facility] Stool Occult Blood iFOBon STOB Positive Normal [facility] Comment on above: Performed By: #### M 100.7900 ####[facility] [address] [place], [place], [id number] Stool gastrointestinal hemog lobin detection by immunologic methodOrdered By: Sammy Guerrero on 04-26-2025 Lower GI hemoglobin IA Ql (Stl) Positive Abnormal [facility] Type AND Screenon 04-26-2025 Ab SCREEN GEL Negative Normal [facility] Comment on above: Order Comment: CMV N EG? NNumber of units to transfuse: 2Is pt's HR > 100 bpm? YReason for Ordering Blood: AcuteAre the blood/blood products to be transfused? YIs the patient having/had surgery? NHas pt arrived? YWhen ReadyNY Performed By: #### B TS, BRC ####[facility] [address] [place], [place], [id number] White blood cell (WBC) count Ordered By: Sammy Guerrero on 04-26-2025 WBC (Bld) [#/Vol] 13.7 10*3/uL High 4.4-11.0 [facility] White blood cell (WBC) count Ordered By: Amado Bailey on 04-26-2025 WBC (Bld) [#/Vol] 11.1 10*3/uL High 4.4-11.0 [facility] Basic Metabolic Profile (BMP )on 04-25-2025 BUN/CRE 39.6 RATIO High 10-20 [facility] Comment on above: Performed By: #### L 100.0100, L500.2500 ####[facility] [address] [place], [address] Calcium [Mass/Vol] 8.7 mg/dL Normal 7.6-11.0 [facility] Comment on above: Performed By: #### L 100.0100, L500.2500 ####[facility] [address] [place], [address] Chloride [Moles/Vol] 107 mmol/L Normal 98-108 [facility] Comment on above: Performed By: #### L 100.0100, L500.2500 ####[facility] [address] [place], [address] CO2 [Moles/Vol] 25.0 mmol/L Normal 21.0-32.0 [facility] Comment on above: Performed By: #### L 100.0100, L500.2500 ####[facility] [address] [place], [address] Creatinine [Mass/Vol] 1.13 mg/dL Normal 0.70-1.20 [facility] Comment on above: Performed By: #### L 100.0100, L500.2500 ####[facility] [address] [place], [address] ECRCL 38.04 ml/min Low 50-250 [facility] Comment on above: Performed By: #### L 100.0100, L500.2500 ####[facility] [address] [place], [address] GAP 9 Normal 5-15 [facility] Comment on above: Performed By: #### L 100.0100, L500.2500 ####[facility] [address] [place], [address] GFR/1.73 sq M.predicted among non-blacks MDRD (S/P/Bld) [Vol rate/Area] 48 mL/min/{1.73_m2} Low >60 [facility] Comment on above: Result Comment: mL/m in/1.73m2 CKD-EPI Creatinine Equation (2020) Performed By: #### L 100.0100, L500.2500 ####[facility] [address] [place], [address] Glucose [Mass/Vol] 150 mg/dL High 70-99 [facility] Comment on above: Performed By: #### L 100.0100, L500.2500 ####[facility] [address] [place], [address] Potassium [Moles/Vol] 3.9 mmol/L Normal 3.3-5.1 [facility] Comment on above: Performed By: #### L 100.0100, L500.2500 ####[facility] [address] [place], [address] Sodium [Moles/Vol] 141 mmol/L Normal 133-145 [facility] Comment on above: Performed By: #### L 100.0100, L500.2500 ####[facility] [address] [place], [address] Urea nitrogen [Mass/Vol] 45 mg/dL High 4-19 [facility] Comment on above: Performed By: #### L 100.0100, L500.2500 ####[facility] [address] [place], [address] Bedside Glucoseon 04-25-2025 FINGERSTICK GLU 139 mg/dL High -106 [facility] Comment on above: Result Comment: RUSSELL GEMENT OF PATIENT CARE PER NURSING PROTOCOL Performed By: #### L 501.080 ####[facility] [address] [place], [address] FINGERSTICK GLU 147 mg/dL High 74-106 [facility] Comment on above: Result Comment: RUSSELL GEMENT OF PATIENT CARE PER NURSING PROTOCOL Performed By: #### L 501.080 ####[facility] [address] [place], [address] FINGERSTICK GLU 165 mg/dL High [address] [place] [address] Comment on above: Result Comment: RUSSELL GEMENT OF PATIENT CARE PER NURSING PROTOCOL Performed By: #### L 501.080 ####[facility] [address] [place], [address] FINGERSTICK GLU 139 mg/dL High [facility]106 [facility] Comment on above: Result Comment: RUSSELL GEMENT OF PATIENT CARE PER NURSING PROTOCOL Performed By: #### L 501.080 ####[facility] [address] [place], [address] FINGERSTICK GLU 129 mg/dL High -106 [facility] Comment on above: Result Comment: RUSSELL GEMENT OF PATIENT CARE PER NURSING PROTOCOL Performed By: #### L 501.080 ####[facility] [address] [place], [address] FINGERSTICK GLU 142 mg/dL High [facility]106 [facility] Comment on above: Result Comment: RUSSELL GEMENT OF PATIENT CARE PER NURSING PROTOCOL Performed By: #### L 501.080 ####[facility] [address] [place], [address] CBC W/Diff, Automatedon 06-0 5-2025 Absolute Lymph 0.75 X10 3/uL Low 0.83-4.51 [facility] Comment on above: Performed By: #### L 100.0100, L500.2500 ####[facility] [address] [place], [address] Absolute Neut 9.2 X10 3/uL High 2.0-7.7 [facility] Comment on above: Performed By: #### L 100.0100, L500.2500 ####[facility] [address] [place], [address] Basophils/100 WBC (Bld) 0.4 % Normal 0-1 [facility] Comment on above: Performed By: #### L 100.0100, L500.2500 ####[facility] [address] [place], [address] Eosinophils/100 WBC (Bld) 2.7 % Normal 0-5 [facility] Comment on above: Performed By: #### L 100.0100, L500.2500 ####[facility] [address] [place], [address] Erythrocyte distribution width (RBC) [Ratio] 16.2 % High 11.6-14.6 [facility] Comment on above: Performed By: #### L 100.0100, L500.2500 ####[facility] [address] [place], [address] Hematocrit (Bld) [Volume fraction] 31.4 % Low 37-47 [facility] Comment on above: Performed By: #### L 100.0100, L500.2500 ####[facility] [address] [place], [address] Hemoglobin (Bld) [Mass/Vol] 9.9 g/dL Low 12.0-15.0 [facility] Comment on above: Performed By: #### L 100.0100, L500.2500 ####[facility] [address] [place], [address] IG% 0.600 Normal 0.0-0.9 [facility] Comment on above: Result Comment: IG% - Immature Granulocytes (promyelocytes, myelocytes andmetamyelocytes) > 1% indicates that a LEFT SHIFT is Present. Performed By: #### L 100.0100, L500.2500 ####[facility] [address] [place], [address] Lymphocytes/100 WBC (Bld) 6.8 % Low 19-41 [facility] Comment on above: Performed By: #### L 100.0100, L500.2500 ####[facility] [address] [place], [address] MCH (RBC) [Entitic mass] 28.0 pg Normal 27.0-32.0 [facility] Comment on above: Performed By: #### L 100.0100, L500.2500 ####[facility] [address] [place], [address] MCHC (RBC) [Mass/Vol] 31.5 g/dL Low 32-36 [facility] Comment on above: Performed By: #### L 100.0100, L500.2500 ####[facility] [address] [place], [address] MCV (RBC) [Entitic vol] 88.7 fL Normal 81-99 [facility] Comment on above: Performed By: #### L 100.0100, L500.2500 ####[facility] [address] [place], [address] Monocytes/100 WBC (Bld) 5.9 % Normal 0-10 [facility] Comment on above: Performed By: #### L 100.0100, L500.2500 ####[facility] [address] [place], [address] Neutrophils/100 WBC (Bld) 83.6 % High 47-70 [facility] Comment on above: Performed By: #### L 100.0100, L500.2500 ####[facility] [address] [place], [address] Nucleated RBC (Bld) [#/Vol] 0 10*3/uL Normal 0-5 [facility] Comment on above: Performed By: #### L 100.0100, L500.2500 ####[facility] [address] [place], [address] Platelet mean volume (Bld) [Entitic vol] 10.1 fL Normal 6.2-12.0 [facility] Comment on above: Performed By: #### L 100.0100, L500.2500 ####[facility] [address] [place], [address] Platelets (Bld) [#/Vol] 295 10*3/uL Normal 150-450 [facility] Comment on above: Performed By: #### L 100.0100, L500.2500 ####[facility] [address] [place], [address] RBC (Bld) [#/Vol] 3.54 10*6/uL Low 4.2-5.4 [facility] Comment on above: Performed By: #### L 100.0100, L500.2500 ####[facility] [address] [place], [address] RDW SD 52.8 fl High 35.1-43.9 [facility] Comment on above: Performed By: #### L 100.0100, L500.2500 ####[facility] [address] [place], [address] WBC (Bld) [#/Vol] 11.1 10*3/uL High 4.4-11.0 [facility] Comment on above: Performed By: #### L 100.0100, L500.2500 ####[facility] [address] [place], [address] Chest PA and Lateralon 04-25 Chest PA and Lateral Normal [facility] Basic Metabolic Profile (BMP )on 04-24-2025 BUN/CRE 41.7 RATIO High 10-20 [facility] Comment on above: Performed By: #### L 501.2300, L500.2500, L100.0100, L501.5200 ####[facility] [address] [place], [address] Calcium [Mass/Vol] 8.6 mg/dL Normal 7.6-11.0 [facility] Comment on above: Performed By: #### L 501.2300, L500.2500, L100.0100, L501.5200 ####[facility] [address] [place], [address] Chloride [Moles/Vol] 107 mmol/L Normal 98-108 [facility] Comment on above: Performed By: #### L 501.2300, L500.2500, L100.0100, L501.5200 ####[facility] [address] [place], [address] CO2 [Moles/Vol] 24.6 mmol/L Normal 21.0-32.0 [facility] Comment on above: Performed By: #### L 501.2300, L500.2500, L100.0100, L501.5200 ####[facility] [address] [place], [address] Creatinine [Mass/Vol] 1.14 mg/dL Normal 0.70-1.20 [facility] Comment on above: Performed By: #### L 501.2300, L500.2500, L100.0100, L501.5200 ####[facility] [address] [place], [address] ECRCL 37.82 ml/min Low 50-250 [facility] Comment on above: Performed By: #### L 501.2300, L500.2500, L100.0100, L501.5200 ####[facility] [address] [place], [address] GAP 9 Normal 5-15 [facility] Comment on above: Performed By: #### L 501.2300, L500.2500, L100.0100, L501.5200 ####[facility] [address] [place], [address] GFR/1.73 sq M.predicted among non-blacks MDRD (S/P/Bld) [Vol rate/Area] 47 mL/min/{1.73_m2} Low >60 [facility] Comment on above: Result Comment: mL/m in/1.73m2 CKD-EPI Creatinine Equation (2020) Performed By: #### L 501.2300, L500.2500, L100.0100, L501.5200 ####[facility] [address] [place], [address] Glucose [Mass/Vol] 169 mg/dL High 70-99 [facility] Comment on above: Performed By: #### L 501.2300, L500.2500, L100.0100, L501.5200 ####[facility] [address] [place], [address] Potassium [Moles/Vol] 3.9 mmol/L Normal 3.3-5.1 [facility] Comment on above: Performed By: #### L 501.2300, L500.2500, L100.0100, L501.5200 ####[facility] [address] [place], [address] Sodium [Moles/Vol] 140 mmol/L Normal 133-145 [facility] Comment on above: Performed By: #### L 501.2300, L500.2500, L100.0100, L501.5200 ####[facility] [address] [place], [address] Urea nitrogen [Mass/Vol] 48 mg/dL High 4-19 [facility] Comment on above: Performed By: #### L 501.2300, L500.2500, L100.0100, L501.5200 ####[facility] [address] [place], [address] Bedside Glucoseon 04-24-2025 FINGERSTICK GLU 134 mg/dL High 74-106 [facility] Comment on above: Result Comment: RUSSELL GEMENT OF PATIENT CARE PER NURSING PROTOCOL Performed By: #### L 501.080 ####[facility] [address] [place], [address] FINGERSTICK GLU 128 mg/dL High 74-106 [facility] Comment on above: Result Comment: RUSSELL GEMENT OF PATIENT CARE PER NURSING PROTOCOL Performed By: #### L 501.080 ####[facility] [address] [place], [address] Body Fluid Culton 04-24-2025 BFC Culture exhibits no growth. Normal [facility] Comment on above: Performed By: #### M 100.4001, L350.1000, M100.2900, L504.0250, M100.2000, L503.0300, L200.0200, L503.0100 ####[facility] [address] [place], [place], [address] CBC W/Diff, Automatedon 06-0 Absolute Lymph 0.86 X10 3/uL Normal 0.83-4.51 [facility] Comment on above: Performed By: #### L 501.2300, L500.2500, L100.0100, L501.5200 ####[facility] [address] [place], [address] Absolute Neut 9.6 X10 3/uL High 2.0-7.7 [facility] Comment on above: Performed By: #### L 501.2300, L500.2500, L100.0100, L501.5200 ####[facility] [address] [place], [address] Basophils/100 WBC (Bld) 0.4 % Normal 0-1 [facility] Comment on above: Performed By: #### L 501.2300, L500.2500, L100.0100, L501.5200 ####[facility] [address] [place], [address] Eosinophils/100 WBC (Bld) 2.7 % Normal 0-5 [facility] Comment on above: Performed By: #### L 501.2300, L500.2500, L100.0100, L501.5200 ####[facility] [address] [place], [address] Erythrocyte distribution width (RBC) [Ratio] 16.2 % High 11.6-14.6 [facility] Comment on above: Performed By: #### L 501.2300, L500.2500, L100.0100, L501.5200 ####[facility] [address] [place], [address] Hematocrit (Bld) [Volume fraction] 33.1 % Low 37-47 [facility] Comment on above: Performed By: #### L 501.2300, L500.2500, L100.0100, L501.5200 ####[facility] [address] [place], [address] Hemoglobin (Bld) [Mass/Vol] 10.3 g/dL Low 12.0-15.0 [facility] Comment on above: Performed By: #### L 501.2300, L500.2500, L100.0100, L501.5200 ####[facility] [address] [place], [address] IG% 0.900 Normal 0.0-0.9 [facility] Comment on above: Result Comment: IG% - Immature Granulocytes (promyelocytes, myelocytes andmetamyelocytes) > 1% indicates that a LEFT SHIFT is Present. Performed By: #### L 501.2300, L500.2500, L100.0100, L501.5200 ####[facility] [address] [place], [address] Lymphocytes/100 WBC (Bld) 7.3 % Low 19-41 [facility] Comment on above: Performed By: #### L 501.2300, L500.2500, L100.0100, L501.5200 ####[facility] [address] [place], [address] MCH (RBC) [Entitic mass] 27.6 pg Normal 27.0-32.0 [facility] Comment on above: Performed By: #### L 501.2300, L500.2500, L100.0100, L501.5200 ####[facility] [address] [place], [address] MCHC (RBC) [Mass/Vol] 31.1 g/dL Low 32-36 [facility] Comment on above: Performed By: #### L 501.2300, L500.2500, L100.0100, L501.5200 ####[facility] [address] [place], [address] MCV (RBC) [Entitic vol] 88.7 fL Normal 81-99 [facility] Comment on above: Performed By: #### L 501.2300, L500.2500, L100.0100, L501.5200 ####[facility] [address] [place], [address] Monocytes/100 WBC (Bld) 7.1 % Normal 0-10 [facility] Comment on above: Performed By: #### L 501.2300, L500.2500, L100.0100, L501.5200 ####[facility] [address] [place], [address] Neutrophils/100 WBC (Bld) 81.6 % High 47-70 [facility] Comment on above: Performed By: #### L 501.2300, L500.2500, L100.0100, L501.5200 ####[facility] [address] [place], [address] Nucleated RBC (Bld) [#/Vol] 0.2 10*3/uL Normal 0-5 [facility] Comment on above: Performed By: #### L 501.2300, L500.2500, L100.0100, L501.5200 ####[facility] [address] [place], [address] Platelet mean volume (Bld) [Entitic vol] 9.9 fL Normal 6.2-12.0 [facility] Comment on above: Performed By: #### L 501.2300, L500.2500, L100.0100, L501.5200 ####[facility] [address] [place], [address] Platelets (Bld) [#/Vol] 299 10*3/uL Normal 150-450 [facility] Comment on above: Performed By: #### L 501.2300, L500.2500, L100.0100, L501.5200 ####[facility] [address] [place], [address] RBC (Bld) [#/Vol] 3.73 10*6/uL Low 4.2-5.4 [facility] Comment on above: Performed By: #### L 501.2300, L500.2500, L100.0100, L501.5200 ####[facility] [address] [place], [address] RDW SD 52.6 fl High 35.1-43.9 [facility] Comment on above: Performed By: #### L 501.2300, L500.2500, L100.0100, L501.5200 ####[facility] [address] [place], [address] WBC (Bld) [#/Vol] 11.7 10*3/uL High 4.4-11.0 [facility] Comment on above: Performed By: #### L 501.2300, L500.2500, L100.0100, L501.5200 ####[facility] [address] [place], [address] CBC-Complete Blood Cnt No Di ffon 04-24-2025 Erythrocyte distribution width (RBC) [Ratio] 13.7 % Normal 11.6-14.6 [facility] Comment on above: Result Comment: ICU CALLED AND REQUESTED CANCELLED DUE TO WRONG PATIENTBLOOD. Performed By: #### L 501.2300, L100.0500, L501.5200, L500.4050 ####[facility] [address] [place], [address] Hematocrit (Bld) [Volume fraction] 24.1 % Low 37-47 [facility] Comment on above: Result Comment: ICU CALLED AND REQUESTED CANCELLED DUE TO WRONG PATIENTBLOOD. Performed By: #### L 501.2300, L100.0500, L501.5200, L500.4050 ####[facility] [address] [place], [address] Hemoglobin (Bld) [Mass/Vol] 7.8 g/dL Low 12.0-15.0 [facility] Comment on above: Result Comment: ICU CALLED AND REQUESTED CANCELLED DUE TO WRONG PATIENTBLOOD. Performed By: #### L 501.2300, L100.0500, L501.5200, L500.4050 ####[facility] [address] [place], [address] MCH (RBC) [Entitic mass] 30.0 pg Normal 27.0-32.0 [facility] Comment on above: Result Comment: ICU CALLED AND REQUESTED CANCELLED DUE TO WRONG PATIENTBLOOD. Performed By: #### L 501.2300, L100.0500, L501.5200, L500.4050 ####[facility] [address] [place], [address] MCHC (RBC) [Mass/Vol] 32.4 g/dL Normal 32-36 [facility] Comment on above: Result Comment: ICU CALLED AND REQUESTED CANCELLED DUE TO WRONG PATIENTBLOOD. Performed By: #### L 501.2300, L100.0500, L501.5200, L500.4050 ####[facility] [address] [place], [address] MCV (RBC) [Entitic vol] 92.7 fL Normal 81-99 [facility] Comment on above: Result Comment: ICU CALLED AND REQUESTED CANCELLED DUE TO WRONG PATIENTBLOOD. Performed By: #### L 501.2300, L100.0500, L501.5200, L500.4050 ####[facility] [address] [place], [address] Platelet mean volume (Bld) [Entitic vol] 11.5 fL Normal 6.2-12.0 [facility] Comment on above: Result Comment: ICU CALLED AND REQUESTED CANCELLED DUE TO WRONG PATIENTBLOOD. Performed By: #### L 501.2300, L100.0500, L501.5200, L500.4050 ####[facility] [address] [place], [address] Platelets (Bld) [#/Vol] 250 10*3/uL Normal 150-450 [facility] Comment on above: Result Comment: ICU CALLED AND REQUESTED CANCELLED DUE TO WRONG PATIENTBLOOD. Performed By: #### L 501.2300, L100.0500, L501.5200, L500.4050 ####[facility] [address] [place], [address] RBC (Bld) [#/Vol] 2.60 10*6/uL Low 4.2-5.4 [facility] Comment on above: Result Comment: ICU CALLED AND REQUESTED CANCELLED DUE TO WRONG PATIENTBLOOD. Performed By: #### L 501.2300, L100.0500, L501.5200, L500.4050 ####[facility] [address] [place], [address] RDW SD 46.6 fl High 35.1-43.9 [facility] Comment on above: Result Comment: ICU CALLED AND REQUESTED CANCELLED DUE TO WRONG PATIENTBLOOD. Performed By: #### L 501.2300, L100.0500, L501.5200, L500.4050 ####[facility] [address] [place], [address] WBC (Bld) [#/Vol] 26.8 10*3/uL High 4.4-11.0 [facility] Comment on above: Result Comment: ICU CALLED AND REQUESTED CANCELLED DUE TO WRONG PATIENTBLOOD. Performed By: #### L 501.2300, L100.0500, L501.5200, L500.4050 ####[facility] [address] [place], [address] CNPNon 04-24-2025 CNPN Normal [facility] Metabolic Prof ilon 04-24-2025 ALB Normal 3.4-4.8 [facility] Comment on above: Result Comment: ICU REQUESTED CANCELLED DUE TO WRONG PATIENT BLOOD. Performed By: #### L 501.2300, L100.0500, L501.5200, L500.4050 ####[facility] [address] [place], [address] ALK PHOS Normal 35-104 [facility] Comment on above: Result Comment: ICU REQUESTED CANCELLED DUE TO WRONG PATIENT BLOOD. Performed By: #### L 501.2300, L100.0500, L501.5200, L500.4050 ####[facility] [address] [place], [address] ALT Normal <=34 [facility] Comment on above: Result Comment: ICU REQUESTED CANCELLED DUE TO WRONG PATIENT BLOOD. Performed By: #### L 501.2300, L100.0500, L501.5200, L500.4050 ####[facility] [address] [place], [address] AST Normal <=31 [facility] Comment on above: Result Comment: ICU REQUESTED CANCELLED DUE TO WRONG PATIENT BLOOD. Performed By: #### L 501.2300, L100.0500, L501.5200, L500.4050 ####[facility] [address] [place], [address] BUN Normal 4-19 [facility] Comment on above: Result Comment: ICU REQUESTED CANCELLED DUE TO WRONG PATIENT BLOOD. Performed By: #### L 501.2300, L100.0500, L501.5200, L500.4050 ####[facility] [address] [place], [address] BUN/CRE Normal 10-20 [facility] Comment on above: Result Comment: ICU REQUESTED CANCELLED DUE TO WRONG PATIENT BLOOD. Performed By: #### L 501.2300, L100.0500, L501.5200, L500.4050 ####[facility] [address] [place], [address] Calcium Normal 7.6-11.0 [facility] Comment on above: Result Comment: ICU REQUESTED CANCELLED DUE TO WRONG PATIENT BLOOD. Performed By: #### L 501.2300, L100.0500, L501.5200, L500.4050 ####[facility] [address] [place], [address] CL Normal 98-108 [facility] Comment on above: Result Comment: ICU REQUESTED CANCELLED DUE TO WRONG PATIENT BLOOD. Performed By: #### L 501.2300, L100.0500, L501.5200, L500.4050 ####[facility] [address] [place], [address] CO2 Normal 21.0-32.0 [facility] Comment on above: Result Comment: ICU REQUESTED CANCELLED DUE TO WRONG PATIENT BLOOD. Performed By: #### L 501.2300, L100.0500, L501.5200, L500.4050 ####[facility] [address] [place], [address] CREAT,SERUM Normal 0.70-1.20 [facility] Comment on above: Result Comment: ICU REQUESTED CANCELLED DUE TO WRONG PATIENT BLOOD. Performed By: #### L 501.2300, L100.0500, L501.5200, L500.4050 ####[facility] [address] [place], [address] eGFR Normal >60 [facility] Comment on above: Result Comment: ICU REQUESTED CANCELLED DUE TO WRONG PATIENT BLOOD. Performed By: #### L 501.2300, L100.0500, L501.5200, L500.4050 ####[facility] [address] [place], [address] GAP Normal 5-15 [facility] Comment on above: Result Comment: ICU REQUESTED CANCELLED DUE TO WRONG PATIENT BLOOD. Performed By: #### L 501.2300, L100.0500, L501.5200, L500.4050 ####[facility] [address] [place], [address] GLU Normal 70-99 [facility] Comment on above: Result Comment: ICU REQUESTED CANCELLED DUE TO WRONG PATIENT BLOOD. Performed By: #### L 501.2300, L100.0500, L501.5200, L500.4050 ####[facility] [address] [place], [address] Potassium Normal 3.3-5.1 [facility] Comment on above: Result Comment: ICU REQUESTED CANCELLED DUE TO WRONG PATIENT BLOOD. Performed By: #### L 501.2300, L100.0500, L501.5200, L500.4050 ####[facility] [address] [place], [address] T BILI Normal 0.00-1.30 [facility] Comment on above: Result Comment: ICU REQUESTED CANCELLED DUE TO WRONG PATIENT BLOOD. Performed By: #### L 501.2300, L100.0500, L501.5200, L500.4050 ####[facility] [address] [place], [address] T PROT Normal 5.9-8.4 [facility] Comment on above: Result Comment: ICU REQUESTED CANCELLED DUE TO WRONG PATIENT BLOOD. Performed By: #### L 501.2300, L100.0500, L501.5200, L500.4050 ####[facility] [address] [place], [address] Comprehensive Metabolic Profil Normal 133-145 [facility] Comment on above: Result Comment: ICU REQUESTED CANCELLED DUE TO WRONG PATIENT BLOOD. Performed By: #### L 501.2300, L100.0500, L501.5200, L500.4050 ####[facility] [address] [place], [address] Magnesiumon 04-24-2025 Magnesium [Mass/Vol] 2.1 mg/dL Normal 1.5-2.2 [facility] Comment on above: Performed By: #### L 501.2300, L500.2500, L100.0100, L501.5200 ####[facility] [address] [place], [address] Magnesium [Mass/Vol] 2.2 mg/dL Normal 1.5-2.2 [facility] Comment on above: Order Comment: ICU R EQUESTED CANCELLED DUE TO WRONG PATIENT BLOOD. Result Comment: ICU REQUESTED CANCELLED DUE TO WRONG PATIENT BLOOD. Performed By: #### L 501.2300, L100.0500, L501.5200, L500.4050 ####[facility] [address] [place], [address] Magnesium measurement (mass/ volume)Ordered By: Amado Bailey on 04-24-2025 Magnesium (Unsp spec) [Mass/Vol] 2.1 mg/dL 1.5-2.2 [facility] Phosphoruson 04-24-2025 Phosphate [Mass/Vol] 2.2 mg/dL Low 2.7-4.5 [facility] Comment on above: Performed By: #### L 501.2300, L500.2500, L100.0100, L501.5200 ####[facility] [address] [place], [address] Phosphate [Mass/Vol] 2.4 mg/dL Low 2.7-4.5 [facility] Comment on above: Order Comment: ICU R EQUESTED CANCELLED DUE TO WRONG PATIENT BLOOD. Result Comment: ICU REQUESTED CANCELLED DUE TO WRONG PATIENT BLOOD. Performed By: #### L 501.2300, L100.0500, L501.5200, L500.4050 ####[facility] [address] [place], [address] Basic Metabolic Profile (BMP )on 04-23-2025 BUN/CRE 48.2 RATIO High 10-20 [facility] Comment on above: Performed By: #### L 500.2500 ####[facility] [address] [place], [address] Calcium [Mass/Vol] 8.7 mg/dL Normal 7.6-11.0 [facility] Comment on above: Performed By: #### L 500.2500 ####[facility] [address] [place], [address] Chloride [Moles/Vol] 108 mmol/L Normal 98-108 [facility] Comment on above: Performed By: #### L 500.2500 ####[facility] [address] [place], [address] CO2 [Moles/Vol] 23.2 mmol/L Normal 21.0-32.0 [facility] Comment on above: Performed By: #### L 500.2500 ####[facility] [address] [place], [address] Creatinine [Mass/Vol] 1.25 mg/dL High 0.70-1.20 [facility] Comment on above: Performed By: #### L 500.2500 ####[facility] [address] [place], [address] ECRCL 34.70 ml/min Low 50-250 [facility] Comment on above: Performed By: #### L 500.2500 ####[facility] [address] [place], [address] GAP 10 Normal 5-15 [facility] Comment on above: Performed By: #### L 500.2500 ####[facility] [address] [place], [address] GFR/1.73 sq M.predicted among non-blacks MDRD (S/P/Bld) [Vol rate/Area] 42 mL/min/{1.73_m2} Low >60 [facility] Comment on above: Result Comment: mL/m in/1.73m2 CKD-EPI Creatinine Equation (2020) Performed By: #### L 500.2500 ####[facility] [address] [place], [address] Glucose [Mass/Vol] 162 mg/dL High 70-99 [facility] Comment on above: Performed By: #### L 500.2500 ####[facility] [address] [place], [address] Potassium [Moles/Vol] 3.9 mmol/L Normal 3.3-5.1 [facility] Comment on above: Result Comment: Hemo lysis present, Results??could be affected.?? Performed By: #### L 500.2500 ####[facility] [address] [place], [address] Sodium [Moles/Vol] 142 mmol/L Normal 133-145 [facility] Comment on above: Performed By: #### L 500.2500 ####[facility] [address] [place], [address] Urea nitrogen [Mass/Vol] 60 mg/dL High 4-19 [facility] Comment on above: Performed By: #### L 500.2500 ####[facility] [address] [place], [address] Bedside Glucoseon 04-23-2025 FINGERSTICK GLU 125 mg/dL High 74-106 [facility] Comment on above: Result Comment: RUSSELL GEMENT OF PATIENT CARE PER NURSING PROTOCOL Performed By: #### L 501.080 ####[facility] [address] [place], [address] FINGERSTICK GLU 128 mg/dL High 74-106 [facility] Comment on above: Result Comment: RUSSELL GEMENT OF PATIENT CARE PER NURSING PROTOCOL Performed By: #### L 501.080 ####[facility] [address] [place], [address] FINGERSTICK GLU 165 mg/dL High 74-106 [facility] Comment on above: Result Comment: RUSSELL GEMENT OF PATIENT CARE PER NURSING PROTOCOL Performed By: #### L 501.080 ####[facility] [address] [place], [address] FINGERSTICK GLU 146 mg/dL High 74-106 [facility] Comment on above: Result Comment: RUSSELL QUINTANILLA OF PATIENT CARE PER NURSING PROTOCOL Performed By: #### L 501.080 ####[facility] [address] [place], [address] Culture, Blood (WB)on 2024 CUB blood cultures x2, f rom 2 different sites No growth in 5 days. Normal [facility] Comment on above: Performed By: #### M 200.1000 ####[facility] [address] [place], [address] ANCAon 04-22-2025 Atypical pANCA 1:20 Abnormal Neg:<1:20 [facility] Comment on above: Result Comment: The atypical pANCA pattern has been observed in asignificant percentage of patients with ulcerative colitis,primary sclerosing cholangitis and autoimmune hepatitis. Performed By: #### L 3100.5700, L3300.1200 ####[facility] [address] [place], [address] Cytoplasmic Ab <1:20 Normal Neg:<1:20 [facility] Comment on above: Performed By: #### L 3100.5700, L3300.1200 ####[facility] [address] [place], [address] Perinuclear Ab. <1:20 Normal Neg:<1:20 [facility] Comment on above: Result Comment: The presence of positive fluorescence exhibiting P-ANCA orC-ANCA patterns alone is not specific for the diagnosis ofWegener's Granulomatosis (WG) or microscopic polyangiitis.Decisions about treatment should not be based solely onANCA IFA results. The [employer] ANCA [employer] Consensusrecommends follow up testing of positive sera with both AL-3 and MPO-ANCA enzyme immunoassays. As many as 5% serumsamples are positive only by EIA. Ref. AM J Clin Vbzfxn3169;111:507-513. Performed By: #### L 3100.5700, L3300.1200 ####[facility] [address] [place], [address] Activated partial thrombopla stin time (aPTT) in platelet poor plasma by coagulation aOrdered By: Ras Espinoza on 04-22-2025 aPTT Coag (PPP) [Time] 28.0 s 24.1-36.2 [facility] Anaerobic cultureOrdered By: Jae Wong on 04-22-2025 Bacteria identified Anaer cx Nom (Unsp spec) No growth in 5 days. [facility] Basic Metabolic Profile (BMP )on 04-22-2025 BUN/CRE 50.8 RATIO High 10-20 [facility] Comment on above: Performed By: #### L 500.2500 ####[facility] [address] [place], [address] Calcium [Mass/Vol] 8.3 mg/dL Normal 7.6-11.0 [facility] Comment on above: Performed By: #### L 500.2500 ####[facility] [address] [place], [address] Chloride [Moles/Vol] 110 mmol/L High 98-108 [facility] Comment on above: Performed By: #### L 500.2500 ####[facility] [address] [place], [address] CO2 [Moles/Vol] 21.8 mmol/L Normal 21.0-32.0 [facility] Comment on above: Performed By: #### L 500.2500 ####[facility] [address] [place], [address] Creatinine [Mass/Vol] 1.38 mg/dL High 0.70-1.20 [facility] Comment on above: Performed By: #### L 500.2500 ####[facility] [address] [place], [address] ECRCL 31.43 ml/min Low 50-250 [facility] Comment on above: Performed By: #### L 500.2500 ####[facility] [address] [place], [address] GAP 11 Normal 5-15 [facility] Comment on above: Performed By: #### L 500.2500 ####[facility] [address] [place], [address] GFR/1.73 sq M.predicted among non-blacks MDRD (S/P/Bld) [Vol rate/Area] 38 mL/min/{1.73_m2} Low >60 [facility] Comment on above: Result Comment: mL/m in/1.73m2 CKD-EPI Creatinine Equation (2020) Performed By: #### L 500.2500 ####[facility] [address] [place], [address] Glucose [Mass/Vol] 152 mg/dL High 70-99 [facility] Comment on above: Performed By: #### L 500.2500 ####[facility] [address] [place], [address] Potassium [Moles/Vol] 4.2 mmol/L Normal 3.3-5.1 [facility] Comment on above: Result Comment: Hemo lysis present, Results??could be affected.?? Performed By: #### L 500.2500 ####[facility] [address] [place], [address] Sodium [Moles/Vol] 142 mmol/L Normal 133-145 [facility] Comment on above: Performed By: #### L 500.2500 ####[facility] [address] [place], [address] Urea nitrogen [Mass/Vol] 70 mg/dL High 4-19 [facility] Comment on above: Performed By: #### L 500.2500 ####[facility] [address] [place], [address] BUN/CRE 56.6 RATIO High 10-20 [facility] Comment on above: Performed By: #### L 500.2500, L100.0100 ####[facility] [address] [place], [address] Calcium [Mass/Vol] 6.3 mg/dL Invalid Interpretation Code 7.6-11.0 [facility] Comment on above: Result Comment: Crit ical Result(s) Called at: 0621 by:??EMERSON ANDRADE. Results read back by same. Performed By: #### L 500.2500, L100.0100 ####[facility] [address] [place], [address] Chloride [Moles/Vol] 118 mmol/L High 98-108 [facility] Comment on above: Performed By: #### L 500.2500, L100.0100 ####[facility] [address] [place], [address] CO2 [Moles/Vol] 19.1 mmol/L Low 21.0-32.0 [facility] Comment on above: Performed By: #### L 500.2500, L100.0100 ####[facility] [address] [place], [address] Creatinine [Mass/Vol] 1.03 mg/dL Normal 0.70-1.20 [facility] Comment on above: Performed By: #### L 500.2500, L100.0100 ####[facility] [address] [place], [address] ECRCL 42.11 ml/min Low 50-250 [facility] Comment on above: Performed By: #### L 500.2500, L100.0100 ####[facility] [address] [place], [address] GAP 7 Normal 5-15 [facility] Comment on above: Performed By: #### L 500.2500, L100.0100 ####[facility] [address] [place], [address] GFR/1.73 sq M.predicted among non-blacks MDRD (S/P/Bld) [Vol rate/Area] 53 mL/min/{1.73_m2} Low >60 [facility] Comment on above: Result Comment: mL/m in/1.73m2 CKD-EPI Creatinine Equation (2020) Performed By: #### L 500.2500, L100.0100 ####[facility] [address] [place], [address] Glucose [Mass/Vol] 126 mg/dL High 70-99 [facility] Comment on above: Performed By: #### L 500.2500, L100.0100 ####[facility] [address] [place], [address] Potassium [Moles/Vol] 2.9 mmol/L Low 3.3-5.1 [facility] Comment on above: Performed By: #### L 500.2500, L100.0100 ####[facility] [address] [place], [address] Sodium [Moles/Vol] 144 mmol/L Normal 133-145 [facility] Comment on above: Performed By: #### L 500.2500, L100.0100 ####[facility] [address] [place], [address] Urea nitrogen [Mass/Vol] 58 mg/dL High 4-19 [facility] Comment on above: Performed By: #### L 500.2500, L100.0100 ####[facility] [address] [place], [address] Bedside Glucoseon 04-22-2025 FINGERSTICK GLU 147 mg/dL High 74-106 [facility] Comment on above: Result Comment: RUSSELL QUINTANILLA OF PATIENT CARE PER NURSING PROTOCOL Performed By: #### L 501.080 ####[facility] [address] [place], [address] FINGERSTICK GLU 130 mg/dL High 74-106 [facility] Comment on above: Result Comment: RUSSELL GEMENT OF PATIENT CARE PER NURSING PROTOCOL Performed By: #### L 501.080 ####[facility] [address] [place], [address] FINGERSTICK GLU 141 mg/dL High 74-106 [facility] Comment on above: Result Comment: RUSSELL GEMENT OF PATIENT CARE PER NURSING PROTOCOL Performed By: #### L 501.080 ####[facility] [address] [place], [address] Body fluid appearance (nomin al result)Ordered By: Jae Wong on 04-22-2025 Appearance (Body fld) CLOUDY [facility] Body fluid color determinati onOrdered By: Jae Wong on 04-22-2025 Color (Body fld) YELLOW [facility] Body fluid cultureOrdered By : Jae Wong on 04-22-2025 Microbial culture, body fluid Culture exhibits no growth. [facility] Body fluid erythrocytes coun t (number/volume)Ordered By: Jae Wong on 04-22-2025 RBC (Body fld) [#/Vol] 11 10*3/uL [facility] Body fluid lactate dehydroge nase measurement (enzymatic activity/volume) by pyruvateOrdered By: Jae Wong on 04-22-2025 LDH Pyruvate to lactate reaction (Body fld) [Catalytic activity/Vol] 114 Units/L Not Establ. [facility] Body fluid leukocytes count (number/volume)Ordered By: Jae Wong on 04-22-2025 WBC (Body fld) [#/Vol] 0.785 10*3/uL [facility] Body fluid lymphocytes/100 l eukocytesOrdered By: Jae Wong on 04-22-2025 Lymphocytes/100 WBC (Body fld) 58 % [facility] Lymphocytes/100 WBC (Body fld) 32 % [facility] Body fluid macrophage countO rdered By: Jae Wong on 04-22-2025 Macrophages (Body fld) [#/Vol] 63 % [facility] Macrophages (Body fld) [#/Vol] 37 % [facility] Body fluid mesothelial cell percentageOrdered By: Jae Wong on 04-22-2025 Mesothelial cells/100 WBC (Body fld) 4 % [facility] Mesothelial cells/100 WBC (Body fld) 2 % [facility] Body fluid mononuclear cell percentageOrdered By: Jae Wong on 04-22-2025 Mononuclear cells/100 WBC (Body fld) 73.4 % [facility] Body fluid protein measureme nt (mass/volume)Ordered By: Jae Wong on 04-22-2025 Protein (Body fld) [Mass/Vol] 2.6 g/dL Not Establ. [facility] Body fluid segmented neutrop hils count (number/volume)Ordered By: Jae Wong on 04-22-2025 Segmented neutrophils (Body fld) [#/Vol] 35 % [facility] Segmented neutrophils (Body fld) [#/Vol] 29 % [facility] Body fluid total cell countO rdered By: Jae Wong on 04-22-2025 Cells Counted Total (Body fld) [#] 0.824 10^3/ul High 0.000-0.00 0 [facility] CBC W/Diff, Automatedon - Absolute Lymph 0.56 X10 3/uL Low 0.83-4.51 [facility] Comment on above: Performed By: #### L 500.2500, L100.0100 ####[facility] [address] [place], [address] Absolute Neut 5.4 X10 3/uL Normal 2.0-7.7 [facility] Comment on above: Performed By: #### L 500.2500, L100.0100 ####[facility] [address] [place], [address] Basophils/100 WBC (Bld) 0.2 % Normal 0-1 [facility] Comment on above: Performed By: #### L 500.2500, L100.0100 ####[facility] [address] [place], [address] Eosinophils/100 WBC (Bld) 1.5 % Normal 0-5 [facility] Comment on above: Performed By: #### L 500.2500, L100.0100 ####[facility] [address] [place], [address] Erythrocyte distribution width (RBC) [Ratio] 16.4 % High 11.6-14.6 [facility] Comment on above: Performed By: #### L 500.2500, L100.0100 ####[facility] [address] [place], [address] Hematocrit (Bld) [Volume fraction] 28.4 % Low 37-47 [facility] Comment on above: Performed By: #### L 500.2500, L100.0100 ####[facility] [address] [place], [address] Hemoglobin (Bld) [Mass/Vol] 8.7 g/dL Low 12.0-15.0 [facility] Comment on above: Performed By: #### L 500.2500, L100.0100 ####[facility] [address] [place], [address] IG% 0.500 Normal 0.0-0.9 [facility] Comment on above: Result Comment: IG% - Immature Granulocytes (promyelocytes, myelocytes andmetamyelocytes) > 1% indicates that a LEFT SHIFT is Present. Performed By: #### L 500.2500, L100.0100 ####[facility] [address] [place], [address] Lymphocytes/100 WBC (Bld) 8.5 % Low 19-41 [facility] Comment on above: Performed By: #### L 500.2500, L100.0100 ####[facility] [address] [place], [address] MCH (RBC) [Entitic mass] 28.4 pg Normal 27.0-32.0 [facility] Comment on above: Performed By: #### L 500.2500, L100.0100 ####[facility] [address] [place], [address] MCHC (RBC) [Mass/Vol] 30.6 g/dL Low 32-36 [facility] Comment on above: Performed By: #### L 500.2500, L100.0100 ####[facility] [address] [place], [address] MCV (RBC) [Entitic vol] 92.8 fL Normal 81-99 [facility] Comment on above: Performed By: #### L 500.2500, L100.0100 ####[facility] [address] [place], [address] Monocytes/100 WBC (Bld) 7.3 % Normal 0-10 [facility] Comment on above: Performed By: #### L 500.2500, L100.0100 ####[facility] [address] [place], [address] Neutrophils/100 WBC (Bld) 82.0 % High 47-70 [facility] Comment on above: Performed By: #### L 500.2500, L100.0100 ####[facility] [address] [place], [address] Nucleated RBC (Bld) [#/Vol] 0 10*3/uL Normal 0-5 [facility] Comment on above: Performed By: #### L 500.2500, L100.0100 ####[facility] [address] [place], [address] Platelet mean volume (Bld) [Entitic vol] 9.8 fL Normal 6.2-12.0 [facility] Comment on above: Performed By: #### L 500.2500, L100.0100 ####[facility] [address] [place], [address] Platelets (Bld) [#/Vol] 183 10*3/uL Normal 150-450 [facility] Comment on above: Performed By: #### L 500.2500, L100.0100 ####[facility] [address] [place], [address] RBC (Bld) [#/Vol] 3.06 10*6/uL Low 4.2-5.4 [facility] Comment on above: Performed By: #### L 500.2500, L100.0100 ####[facility] [address] [place], [address] RDW SD 55.7 fl High 35.1-43.9 [facility] Comment on above: Performed By: #### L 500.2500, L100.0100 ####[facility] [address] [place], [address] WBC (Bld) [#/Vol] 6.6 10*3/uL Normal 4.4-11.0 [facility] Comment on above: Performed By: #### L 500.2500, L100.0100 ####[facility] [address] [place], [address] Chest 1 View (Portable)on Chest 1 View (Portable) Normal [facility] Chest Insp/Exp 2 Viewon 06-0 Chest Insp/Exp 2 View Normal [facility] Complement C3on 04-22-2025 COMP C3 127 mg/dL Normal 82-167 [facility] Comment on above: Result Comment: Perf ormed at: - [facility] [address] [place], [place] [id number] Director: Truman Maier PhD, Phone: [phone] Performed By: #### L 2870.8158, H1906.9798 ####[facility] [address] [place], [place], [address] Consultation - Intensiviston 04-22-2025 Consultation - Mold Blower Normal [facility] Cytology report of Body flui d Cyto stainOrdered By: Jae Wong on 04-22-2025 Cytology report Cyto stain Doc (Body fld) SEE PATHOLOGY REPORT [facility] Electrocardiogram reportOrde red By: Kayla Fields on 04-22-2025 EKG study [facility] Work Phone: [phone] Glucose, Body Fluidon 2024 GLUC, BODY FLD 164 mg/dL Normal Not Establ. [facility] Comment on above: Performed By: #### M 100.4001, L350.1000, M100.2900, L504.0250, M100.2000, L503.0300, L200.0200, L503.0100 ####[facility] [address] [place], [address] Gram Stainon 04-22-2025 GS Centrifuged Specimen ? Culture performed on centrifuged specimen Gram Stain No organisms seen 4+ Red Blood Cells 1+ White Blood Cells Normal [facility] Comment on above: Performed By: #### M 100.4001, L350.1000, M100.2900, L504.0250, M100.2000, L503.0300, L200.0200, L503.0100 ####[facility] [address] [place], [address] Gram stainOrdered By: Jae Wong on 04-22-2025 Microscopic observation Gram stain Nom (Unsp spec) [facility] Immunohistochemical Stainson 04-22-2025 Immunohistochemical Stains Normal [facility] Comment on above: Performed By: #### P IMHI ####[facility] [address] [place], [address] LDHon 04-22-2025 LDH 231 U/L Normal 84-246 [facility] Comment on above: Result Comment: Hemo lysis present, Results??could be affected.?? Performed By: #### L 504.2610, L001.0705 ####[facility] [address] [place], [address] LDH,Body Fluidon 04-22-2025 LDH,BF 114 Units/L Normal Not Establ. [facility] Comment on above: Performed By: #### M 100.4001, L350.1000, M100.2900, L504.0250, M100.2000, L503.0300, L200.0200, L503.0100 ####[facility] [address] [place], [address] Monocyte detectionOrdered By : Jae Wong on 04-22-2025 Monocytes/100 WBC (Bld) 3 % [facility] No Panel InformationOrdered By: Jae Wong on 04-22-2025 SEE COMMENT [facility] Partial Thromboplast Timeon 04-22-2025 aPTT Coag (Bld) [Time] 28.0 s Normal 24.1-36.2 [facility] Comment on above: Performed By: #### L 300.3900, L300.4310 ####[facility] [address] [place], [address] Pathologist interpretation o f Body fluid testsOrdered By: Jae Wong on 04-22-2025 Pathologist interpretation (Body fld) [Interp] May follow [facility] Pathologist interpretation (Body fld) [Interp] Reviewed [facility] Protein Electroph, Son 04-22 Albumin [Mass/Vol] 2.7 g/dL Low 2.9-4.4 [facility] Comment on above: Performed By: #### L 3100.3450 ####[facility] [address] [place], [address] Albumin/Globulin [Mass ratio] 0.7 {ratio} Normal 0.7-1.7 [facility] Comment on above: Performed By: #### L 3100.3450 ####[facility] [address] [place], [address] ALPHA-1 GLOBUL 0.5 g/dL High 0.0-0.4 [facility] Comment on above: Performed By: #### L 3100.3450 ####[facility] [address] [place], [address] ALPHA-2 GLOBUL 1.1 g/dL High 0.4-1.0 [facility] Comment on above: Performed By: #### L 3100.3450 ####[facility] [address] [place], [address] BETA GLOBULIN 0.8 g/dL Normal 0.7-1.3 [facility] Comment on above: Performed By: #### L 3100.3450 ####[facility] [address] [place], [address] GAMMA GLOBULIN 1.4 g/dL Normal 0.4-1.8 [facility] Comment on above: Performed By: #### L 3100.3450 ####[facility] [address] [place], [address] Globulin (S) [Mass/Vol] 3.7 g/dL Normal 2.2-3.9 [facility] Comment on above: Performed By: #### L 3100.3450 ####[facility] [address] [place], [address] INTERPRETATION Comment Normal . [facility] Comment on above: Result Comment: Prot ein electrophoresis scan will follow via computer,mail, or basket weaver delivery. Performed By: #### L 3100.3450 ####[facility] [address] [place], [address] M-SPIKE Comment: Normal Not Observed [facility] Comment on above: Result Comment: SPE shows an asymmetrical gamma. Performed By: #### L 3100.3450 ####[facility] [address] [place], [address] NOTE: Comment Normal . [facility] Comment on above: Result Comment: Sam t band in gamma region suspicious for monoclonalimmunoglobulin. This band may represent a benign spike asseen in older people or could be a paraprotein as seen inMultiple Myeloma, Waldenstrom's Macroglobulinemia orLymphoma. Depending on clinical circumstances, furtherdiagnostic studies may include serum immunofixation orserum free light chain quantitation.Performed at: [facility] [id number] Director: Truman Maier PhD, Phone: [phone] Performed By: #### L 3100.3450 ####[facility] [address] [place], [address] Protein [Mass/Vol] 6.4 g/dL Normal 6.0-8.5 [facility] Comment on above: Performed By: #### L 3100.3450 ####[facility] [address] [place], [address] Protein, Body Fluidon 2024 Protein [Mass/Vol] 2.6 g/dL Normal Not Establ. [facility] Comment on above: Performed By: #### M 100.4001, L350.1000, M100.2900, L504.0250, M100.2000, L503.0300, L200.0200, L503.0100 ####[facility] [address] [place], [address] Protein, Totalon 04-22-2025 T PROT 5.9 g/dL Normal 5.9-8.4 [facility] Comment on above: Performed By: #### L 504.2610, L001.0705 ####[facility] [address] [place], [address] Prothrombin Time w/INRon INR Coag (PPP) [Relative time] 1.4 {INR} Normal [facility] Comment on above: Performed By: #### L 300.3900, L300.4310 ####[facility] [address] [place], [address] PT Coag (PPP) [Time] 17.5 s High 11.7-14.9 [facility] Comment on above: Performed By: #### L 300.3900, L300.4310 ####[facility] [address] [place], [address] Prothrombin timeOrdered By: Ras Espinoza on 04-22-2025 PT Coag (PPP) [Time] 17.5 s High 11.7-14.9 [facility] Respiratory Cultureon 2024 RESPC Normal [facility] Comment on above: Performed By: #### M 100.2000, M100.2400 ####[facility] [address] [place], [address] Specimen source identificati on of body fluidOrdered By: Jae Wong on 04-22-2025 Specimen source Nom (Body fld) THORACENTESIS [facility] Thoracentesis W USon 025 Thoracentesis W US Normal [facility] Total proteinOrdered By: Vinson on 04-22-2025 Protein [Mass/Vol] 5.9 g/dL 5.9-8.4 [facility] Basic Metabolic Profile (BMP )on 04-21-2025 BUN/CRE 48.0 RATIO High 10-20 [facility] Comment on above: Performed By: #### L 500.2500, L100.0100 ####[facility] [address] [place], [address] Calcium [Mass/Vol] 8.4 mg/dL Normal 7.6-11.0 [facility] Comment on above: Performed By: #### L 500.2500, L100.0100 ####[facility] [address] [place], [address] Chloride [Moles/Vol] 107 mmol/L Normal 98-108 [facility] Comment on above: Performed By: #### L 500.2500, L100.0100 ####[facility] [address] [place], [address] CO2 [Moles/Vol] 24.1 mmol/L Normal 21.0-32.0 [facility] Comment on above: Performed By: #### L 500.2500, L100.0100 ####[facility] [address] [place], [address] Creatinine [Mass/Vol] 1.98 mg/dL High 0.70-1.20 [facility] Comment on above: Performed By: #### L 500.2500, L100.0100 ####[facility] [address] [place], [address] ECRCL 21.37 ml/min Low 50-250 [facility] Comment on above: Performed By: #### L 500.2500, L100.0100 ####[facility] [address] [place], [address] GAP 11 Normal 5-15 [facility] Comment on above: Performed By: #### L 500.2500, L100.0100 ####[facility] [address] [place], [address] GFR/1.73 sq M.predicted among non-blacks MDRD (S/P/Bld) [Vol rate/Area] 24 mL/min/{1.73_m2} Low >60 [facility] Comment on above: Result Comment: mL/m in/1.73m2 CKD-EPI Creatinine Equation (2020) Performed By: #### L 500.2500, L100.0100 ####[facility] [address] [place], [address] Glucose [Mass/Vol] 156 mg/dL High 70-99 [facility] Comment on above: Performed By: #### L 500.2500, L100.0100 ####[facility] [address] [place], [address] Potassium [Moles/Vol] 4.3 mmol/L Normal 3.3-5.1 [facility] Comment on above: Result Comment: Hemo lysis present, Results??could be affected.?? Performed By: #### L 500.2500, L100.0100 ####[facility] [address] [place], [address] Sodium [Moles/Vol] 142 mmol/L Normal 133-145 [facility] Comment on above: Performed By: #### L 500.2500, L100.0100 ####[facility] [address] [place], [address] Urea nitrogen [Mass/Vol] 95 mg/dL High 4-19 [facility] Comment on above: Performed By: #### L 500.2500, L100.0100 ####[facility] [address] [place], [address] Bedside Glucoseon 04-21-2025 FINGERSTICK GLU 144 mg/dL High 74-106 [facility] Comment on above: Result Comment: RUSSELL GEMENT OF PATIENT CARE PER NURSING PROTOCOL Performed By: #### L 501.080 ####[facility] [address] [place], [address] FINGERSTICK GLU 160 mg/dL High 74-106 [facility] Comment on above: Result Comment: RUSSELL GEMENT OF PATIENT CARE PER NURSING PROTOCOL Performed By: #### L 501.080 ####[facility] [address] [place], [address] FINGERSTICK GLU 152 mg/dL High 74-106 [facility] Comment on above: Result Comment: RUSSELL GEMENT OF PATIENT CARE PER NURSING PROTOCOL Performed By: #### L 501.080 ####[facility] [address] [place], [address] CBC W/Diff, Automatedon 06-0 1-2025 Absolute Lymph 0.65 X10 3/uL Low 0.83-4.51 [facility] Comment on above: Performed By: #### L 500.2500, L100.0100 ####[facility] [address] [place], [address] Absolute Neut 7.2 X10 3/uL Normal 2.0-7.7 [facility] Comment on above: Performed By: #### L 500.2500, L100.0100 ####[facility] [address] [place], [address] Basophils/100 WBC (Bld) 0.1 % Normal 0-1 [facility] Comment on above: Performed By: #### L 500.2500, L100.0100 ####[facility] [address] [place], [address] Eosinophils/100 WBC (Bld) 0.7 % Normal 0-5 [facility] Comment on above: Performed By: #### L 500.2500, L100.0100 ####[facility] [address] [place], [address] Erythrocyte distribution width (RBC) [Ratio] 16.4 % High 11.6-14.6 [facility] Comment on above: Performed By: #### L 500.2500, L100.0100 ####[facility] [address] [place], [address] Hematocrit (Bld) [Volume fraction] 34.8 % Low 37-47 [facility] Comment on above: Performed By: #### L 500.2500, L100.0100 ####[facility] [address] [place], [address] Hemoglobin (Bld) [Mass/Vol] 11.1 g/dL Low 12.0-15.0 [facility] Comment on above: Performed By: #### L 500.2500, L100.0100 ####[facility] [address] [place], [address] IG% 0.300 Normal 0.0-0.9 [facility] Comment on above: Result Comment: IG% - Immature Granulocytes (promyelocytes, myelocytes andmetamyelocytes) > 1% indicates that a LEFT SHIFT is Present. Performed By: #### L 500.2500, L100.0100 ####[facility] [address] [place], [address] Lymphocytes/100 WBC (Bld) 7.5 % Low 19-41 [facility] Comment on above: Performed By: #### L 500.2500, L100.0100 ####[facility] [address] [place], [address] MCH (RBC) [Entitic mass] 28.8 pg Normal 27.0-32.0 [facility] Comment on above: Performed By: #### L 500.2500, L100.0100 ####[facility] [address] [place], [address] MCHC (RBC) [Mass/Vol] 31.9 g/dL Low 32-36 [facility] Comment on above: Performed By: #### L 500.2500, L100.0100 ####[facility] [address] [place], [address] MCV (RBC) [Entitic vol] 90.2 fL Normal 81-99 [facility] Comment on above: Performed By: #### L 500.2500, L100.0100 ####[facility] [address] [place], [address] Monocytes/100 WBC (Bld) 8.5 % Normal 0-10 [facility] Comment on above: Performed By: #### L 500.2500, L100.0100 ####[facility] [address] [place], [address] Neutrophils/100 WBC (Bld) 82.9 % High 47-70 [facility] Comment on above: Performed By: #### L 500.2500, L100.0100 ####[facility] [address] [place], [address] Nucleated RBC (Bld) [#/Vol] 0 10*3/uL Normal 0-5 [facility] Comment on above: Performed By: #### L 500.2500, L100.0100 ####[facility] [address] [place], [address] Platelet mean volume (Bld) [Entitic vol] 9.7 fL Normal 6.2-12.0 [facility] Comment on above: Performed By: #### L 500.2500, L100.0100 ####[facility] [address] [place], [address] Platelets (Bld) [#/Vol] 240 10*3/uL Normal 150-450 [facility] Comment on above: Performed By: #### L 500.2500, L100.0100 ####[facility] [address] [place], [address] RBC (Bld) [#/Vol] 3.86 10*6/uL Low 4.2-5.4 [facility] Comment on above: Performed By: #### L 500.2500, L100.0100 ####[facility] [address] [place], [address] RDW SD 54.4 fl High 35.1-43.9 [facility] Comment on above: Performed By: #### L 500.2500, L100.0100 ####[facility] [address] [place], [address] WBC (Bld) [#/Vol] 8.7 10*3/uL Normal 4.4-11.0 [facility] Comment on above: Performed By: #### L 500.2500, L100.0100 ####[facility] [address] [place], [address] Consultation - Surgicalon Consultation - Surgical Normal [facility] Basic Metabolic Profile (BMP )on 04-20-2025 BUN/CRE 42.6 RATIO High 10-20 [facility] Comment on above: Performed By: #### L 100.0100, L500.2500 ####[facility] [address] [place], [address] Calcium [Mass/Vol] 8.7 mg/dL Normal 7.6-11.0 [facility] Comment on above: Performed By: #### L 100.0100, L500.2500 ####[facility] [address] [place], [address] Chloride [Moles/Vol] 99 mmol/L Normal 98-108 [facility] Comment on above: Performed By: #### L 100.0100, L500.2500 ####[facility] [address] [place], [address] CO2 [Moles/Vol] 23.8 mmol/L Normal 21.0-32.0 [facility] Comment on above: Performed By: #### L 100.0100, L500.2500 ####[facility] [address] [place], [address] Creatinine [Mass/Vol] 2.72 mg/dL High 0.70-1.20 [facility] Comment on above: Performed By: #### L 100.0100, L500.2500 ####[facility] [address] [place], [address] ECRCL 15.43 ml/min Low 50-250 [facility] Comment on above: Performed By: #### L 100.0100, L500.2500 ####[facility] [address] [place], [address] GAP 14 Normal 5-15 [facility] Comment on above: Performed By: #### L 100.0100, L500.2500 ####[facility] [address] [place], [address] GFR/1.73 sq M.predicted among non-blacks MDRD (S/P/Bld) [Vol rate/Area] 17 mL/min/{1.73_m2} Low >60 [facility] Comment on above: Result Comment: mL/m in/1.73m2 CKD-EPI Creatinine Equation (2020) Performed By: #### L 100.0100, L500.2500 ####[facility] [address] [place], [address] Glucose [Mass/Vol] 175 mg/dL High 70-99 [facility] Comment on above: Performed By: #### L 100.0100, L500.2500 ####[facility] [address] [place], [address] Potassium [Moles/Vol] 4.0 mmol/L Normal 3.3-5.1 [facility] Comment on above: Performed By: #### L 100.0100, L500.2500 ####[facility] [address] [place], [address] Sodium [Moles/Vol] 137 mmol/L Normal 133-145 [facility] Comment on above: Performed By: #### L 100.0100, L500.2500 ####[facility] [address] [place], [address] Urea nitrogen [Mass/Vol] 116 mg/dL Invalid Interpretation Code 4-19 [facility] Comment on above: Result Comment: Crit ical Result(s) Called to: Tory GRACIA (U) by:Nabor??Results read back by same. Performed By: #### L 100.0100, L500.2500 ####[facility] [address] [place], [address] Bedside Glucoseon - FINGERSTICK GLU 164 mg/dL High 74-106 [facility] Comment on above: Result Comment: RUSSELL GEMENT OF PATIENT CARE PER NURSING PROTOCOL Performed By: #### L 501.080 ####[facility] [address] [place], [address] FINGERSTICK GLU 150 mg/dL High 74-106 [facility] Comment on above: Result Comment: RUSSELL GEMENT OF PATIENT CARE PER NURSING PROTOCOL Performed By: #### L 501.080 ####[facility] [address] [place], [address] FINGERSTICK GLU 167 mg/dL High 74-106 [facility] Comment on above: Result Comment: RUSSELL GEMENT OF PATIENT CARE PER NURSING PROTOCOL Performed By: #### L 501.080 ####[facility] [address] [place], [address] FINGERSTICK GLU 172 mg/dL High 74-106 [facility] Comment on above: Result Comment: RUSSELL GEMENT OF PATIENT CARE PER NURSING PROTOCOL Performed By: #### L 501.080 ####[facility] [address] [place], [address] CBC W/Diff, Automatedon 05-3 Absolute Lymph 0.75 X10 3/uL Low 0.83-4.51 [facility] Comment on above: Performed By: #### L 100.0100, L500.2500 ####[facility] [address] [place], [address] Absolute Neut 8.4 X10 3/uL High 2.0-7.7 [facility] Comment on above: Performed By: #### L 100.0100, L500.2500 ####[facility] [address] [place], [address] Basophils/100 WBC (Bld) 0.1 % Normal 0-1 [facility] Comment on above: Performed By: #### L 100.0100, L500.2500 ####[facility] [address] [place], [address] Eosinophils/100 WBC (Bld) 0.3 % Normal 0-5 [facility] Comment on above: Performed By: #### L 100.0100, L500.2500 ####[facility] [address] [place], [address] Erythrocyte distribution width (RBC) [Ratio] 16.5 % High 11.6-14.6 [facility] Comment on above: Performed By: #### L 100.0100, L500.2500 ####[facility] [address] [place], [address] Hematocrit (Bld) [Volume fraction] 34.7 % Low 37-47 [facility] Comment on above: Performed By: #### L 100.0100, L500.2500 ####[facility] [address] [place], [address] Hemoglobin (Bld) [Mass/Vol] 10.9 g/dL Low 12.0-15.0 [facility] Comment on above: Performed By: #### L 100.0100, L500.2500 ####[facility] [address] [place], [address] IG% 0.500 Normal 0.0-0.9 [facility] Comment on above: Result Comment: IG% - Immature Granulocytes (promyelocytes, myelocytes andmetamyelocytes) > 1% indicates that a LEFT SHIFT is Present. Performed By: #### L 100.0100, L500.2500 ####[facility] [address] [place], [address] Lymphocytes/100 WBC (Bld) 7.6 % Low 19-41 [facility] Comment on above: Performed By: #### L 100.0100, L500.2500 ####[facility] [address] [place], [address] MCH (RBC) [Entitic mass] 28.2 pg Normal 27.0-32.0 [facility] Comment on above: Performed By: #### L 100.0100, L500.2500 ####[facility] [address] [place], [address] MCHC (RBC) [Mass/Vol] 31.4 g/dL Low 32-36 [facility] Comment on above: Performed By: #### L 100.0100, L500.2500 ####[facility] [address] [place], [address] MCV (RBC) [Entitic vol] 89.7 fL Normal 81-99 [facility] Comment on above: Performed By: #### L 100.0100, L500.2500 ####[facility] [address] [place], [address] Monocytes/100 WBC (Bld) 7.2 % Normal 0-10 [facility] Comment on above: Performed By: #### L 100.0100, L500.2500 ####[facility] [address] [place], [address] Neutrophils/100 WBC (Bld) 84.3 % High 47-70 [facility] Comment on above: Performed By: #### L 100.0100, L500.2500 ####[facility] [address] [place], [address] Nucleated RBC (Bld) [#/Vol] 0 10*3/uL Normal 0-5 [facility] Comment on above: Performed By: #### L 100.0100, L500.2500 ####[facility] [address] [place], [address] Platelet mean volume (Bld) [Entitic vol] 9.7 fL Normal 6.2-12.0 [facility] Comment on above: Performed By: #### L 100.0100, L500.2500 ####[facility] [address] [place], [address] Platelets (Bld) [#/Vol] 278 10*3/uL Normal 150-450 [facility] Comment on above: Performed By: #### L 100.0100, L500.2500 ####[facility] [address] [place], [address] RBC (Bld) [#/Vol] 3.87 10*6/uL Low 4.2-5.4 [facility] Comment on above: Performed By: #### L 100.0100, L500.2500 ####[facility] [address] [place], [address] RDW SD 53.6 fl High 35.1-43.9 [facility] Comment on above: Performed By: #### L 100.0100, L500.2500 ####[facility] [address] [place], [address] WBC (Bld) [#/Vol] 9.9 10*3/uL Normal 4.4-11.0 [facility] Comment on above: Performed By: #### L 100.0100, L500.2500 ####[facility] [address] [place], [address] Chest 1 View (Portable)on Chest 1 View (Portable) Normal [facility] Albumin Elph [Mass/Vol]Order ed By: Melissa Garcia on 04-19-2025 Albumin [Mass/Vol] 2.7 g/dL Low 2.9-4.4 [facility] Basic Metabolic Profile (BMP )on 04-19-2025 BUN/CRE 36.9 RATIO High 10-20 [facility] Comment on above: Performed By: #### L 100.0100, L500.2500 ####[facility] [address] [place], [address] Calcium [Mass/Vol] 9.1 mg/dL Normal 7.6-11.0 [facility] Comment on above: Performed By: #### L 100.0100, L500.2500 ####[facility] [address] [place], [address] Chloride [Moles/Vol] 98 mmol/L Normal 98-108 [facility] Comment on above: Performed By: #### L 100.0100, L500.2500 ####[facility] [address] [place], [address] CO2 [Moles/Vol] 23.6 mmol/L Normal 21.0-32.0 [facility] Comment on above: Performed By: #### L 100.0100, L500.2500 ####[facility] [address] [place], [address] Creatinine [Mass/Vol] 2.93 mg/dL High 0.70-1.20 [facility] Comment on above: Performed By: #### L 100.0100, L500.2500 ####[facility] [address] [place], [address] ECRCL 14.44 ml/min Low 50-250 [facility] Comment on above: Performed By: #### L 100.0100, L500.2500 ####[facility] [address] [place], [address] GAP 14 Normal 5-15 [facility] Comment on above: Performed By: #### L 100.0100, L500.2500 ####[facility] [address] [place], [address] GFR/1.73 sq M.predicted among non-blacks MDRD (S/P/Bld) [Vol rate/Area] 15 mL/min/{1.73_m2} Low >60 [facility] Comment on above: Result Comment: mL/m in/1.73m2 CKD-EPI Creatinine Equation (2020) Performed By: #### L 100.0100, L500.2500 ####[facility] [address] [place], [address] Glucose [Mass/Vol] 169 mg/dL High 70-99 [facility] Comment on above: Performed By: #### L 100.0100, L500.2500 ####[facility] [address] [place], [address] Potassium [Moles/Vol] 4.1 mmol/L Normal 3.3-5.1 [facility] Comment on above: Performed By: #### L 100.0100, L500.2500 ####[facility] [address] [place], [address] Sodium [Moles/Vol] 136 mmol/L Normal 133-145 [facility] Comment on above: Performed By: #### L 100.0100, L500.2500 ####[facility] [address] [place], [address] Urea nitrogen [Mass/Vol] 108 mg/dL Invalid Interpretation Code 4-19 [facility] Comment on above: Result Comment: Crit ical Result(s) Called at 0809: by: TYREE SOTO.??Results read back by same. Performed By: #### L 100.0100, L500.2500 ####[facility] [address] [place], [address] Bedside Glucoseon 04-19-2025 FINGERSTICK GLU 154 mg/dL High 74-106 [facility] Comment on above: Result Comment: RUSSELL GEMENT OF PATIENT CARE PER NURSING PROTOCOL Performed By: #### L 501.080 ####[facility] [address] [place], [address] FINGERSTICK GLU 179 mg/dL High 74-106 [facility] Comment on above: Result Comment: RUSSELL GEMENT OF PATIENT CARE PER NURSING PROTOCOL Performed By: #### L 501.080 ####[facility] [address] [place], [address] FINGERSTICK GLU 146 mg/dL High 74-106 [facility] Comment on above: Result Comment: RUSSELL GEMENT OF PATIENT CARE PER NURSING PROTOCOL Performed By: #### L 501.080 ####[facility] [address] [place], [address] FINGERSTICK GLU 154 mg/dL High 74-106 [facility] Comment on above: Result Comment: RUSSELL GEMENT OF PATIENT CARE PER NURSING PROTOCOL Performed By: #### L 501.080 ####[facility] [address] [place], [address] CBC W/Diff, Automatedon 05-3 0-2025 Absolute Lymph 0.71 X10 3/uL Low 0.83-4.51 [facility] Comment on above: Performed By: #### L 100.0100, L500.2500 ####[facility] [address] [place], [address] Absolute Neut 11.1 X10 3/uL High 2.0-7.7 [facility] Comment on above: Performed By: #### L 100.0100, L500.2500 ####[facility] [address] [place], [address] Basophils/100 WBC (Bld) 0.2 % Normal 0-1 [facility] Comment on above: Performed By: #### L 100.0100, L500.2500 ####[facility] [address] [place], [address] Eosinophils/100 WBC (Bld) 0.2 % Normal 0-5 [facility] Comment on above: Performed By: #### L 100.0100, L500.2500 ####[facility] [address] [place], [address] Erythrocyte distribution width (RBC) [Ratio] 16.7 % High 11.6-14.6 [facility] Comment on above: Performed By: #### L 100.0100, L500.2500 ####[facility] [address] [place], [address] Hematocrit (Bld) [Volume fraction] 39.6 % Normal 37-47 [facility] Comment on above: Performed By: #### L 100.0100, L500.2500 ####[facility] [address] [place], [address] Hemoglobin (Bld) [Mass/Vol] 12.4 g/dL Normal 12.0-15.0 [facility] Comment on above: Performed By: #### L 100.0100, L500.2500 ####[facility] [address] [place], [address] IG% 0.800 Normal 0.0-0.9 [facility] Comment on above: Result Comment: IG% - Immature Granulocytes (promyelocytes, myelocytes andmetamyelocytes) > 1% indicates that a LEFT SHIFT is Present. Performed By: #### L 100.0100, L500.2500 ####[facility] [address] [place], [address] Lymphocytes/100 WBC (Bld) 5.6 % Low 19-41 [facility] Comment on above: Performed By: #### L 100.0100, L500.2500 ####[facility] [address] [place], [address] MCH (RBC) [Entitic mass] 28.0 pg Normal 27.0-32.0 [facility] Comment on above: Performed By: #### L 100.0100, L500.2500 ####[facility] [address] [place], [address] MCHC (RBC) [Mass/Vol] 31.3 g/dL Low 32-36 [facility] Comment on above: Performed By: #### L 100.0100, L500.2500 ####[facility] [address] [place], [address] MCV (RBC) [Entitic vol] 89.4 fL Normal 81-99 [facility] Comment on above: Performed By: #### L 100.0100, L500.2500 ####[facility] [address] [place], [address] Monocytes/100 WBC (Bld) 5.5 % Normal 0-10 [facility] Comment on above: Performed By: #### L 100.0100, L500.2500 ####[facility] [address] [place], [address] Neutrophils/100 WBC (Bld) 87.7 % High 47-70 [facility] Comment on above: Performed By: #### L 100.0100, L500.2500 ####[facility] [address] [place], [address] Nucleated RBC (Bld) [#/Vol] 0 10*3/uL Normal 0-5 [facility] Comment on above: Performed By: #### L 100.0100, L500.2500 ####[facility] [address] [place], [address] Platelet mean volume (Bld) [Entitic vol] 10.0 fL Normal 6.2-12.0 [facility] Comment on above: Performed By: #### L 100.0100, L500.2500 ####[facility] [address] [place], [address] Platelets (Bld) [#/Vol] 373 10*3/uL Normal 150-450 [facility] Comment on above: Performed By: #### L 100.0100, L500.2500 ####[facility] [address] [place], [address] RBC (Bld) [#/Vol] 4.43 10*6/uL Normal 4.2-5.4 [facility] Comment on above: Performed By: #### L 100.0100, L500.2500 ####[facility] [address] [place], [address] RDW SD 54.2 fl High 35.1-43.9 [facility] Comment on above: Performed By: #### L 100.0100, L500.2500 ####[facility] [address] [place], [address] WBC (Bld) [#/Vol] 12.6 10*3/uL High 4.4-11.0 [facility] Comment on above: Performed By: #### L 100.0100, L500.2500 ####[facility] [address] [place], [address] Chest Insp/Exp 2 Viewon 05-3 Chest Insp/Exp 2 View Normal [facility] Glucose, Body Fluidon 2024 GLUC, BODY FLD 173 mg/dL Normal Not Establ. [facility] Comment on above: Performed By: #### L 503.0300, L501.2300, L503.0100, L504.0250, L500.2500, L501.5200, L100.0100 ####[facility] [address] [place], [address] Immunohistochemical Stainson 04-19-2025 Immunohistochemical Stains Normal [facility] Comment on above: Performed By: #### P IMHI ####[facility] [address] [place], [address] LDH,Body Fluidon 04-19-2025 LDH,BF 201 Units/L Normal Not Establ. [facility] Comment on above: Performed By: #### L 503.0300, L501.2300, L503.0100, L504.0250, L500.2500, L501.5200, L100.0100 ####[facility] [address] [place], [address] No Panel InformationOrdered By: Melissa Garcia on 04-19-2025 Addendum Document Comment . [facility] Partial Thromboplast Timeon 04-19-2025 aPTT Coag (Bld) [Time] 54.9 s High 24.1-36.2 [facility] Comment on above: Performed By: #### L 300.4310 ####[facility] [address] [place], [address] Protein Fractions Elph [Inte rp]Ordered By: Melissa Garcia on 04-19-2025 Protein Fractions [Interp] Comment . [facility] Protein, Body Fluidon 2024 Protein [Mass/Vol] 3.9 g/dL Normal Not Establ. [facility] Comment on above: Performed By: #### L 503.0300, L501.2300, L503.0100, L504.0250, L500.2500, L501.5200, L100.0100 ####[facility] [address] [place], [address] Prothrombin Time w/INRon INR Coag (PPP) [Relative time] 2.1 {INR} Normal [facility] Comment on above: Performed By: #### L 300.3900 ####[facility] [address] [place], [address] PT Coag (PPP) [Time] 23.8 s High 11.7-14.9 [facility] Comment on above: Performed By: #### L 846.5835 ####[facility] [address] [place], [address] Serum DNA double strand anti body assay (units/volume)Ordered By: Melissa Garcia on 04-19-2025 DNA double strand Ab Qn (S) TNP [facility] Serum Scl-70 antibody assay (units/volume)Ordered By: Melissa Garcia on 04-19-2025 SCL-70 extractable nuclear Ab Qn (S) TNP [facility] Serum albumin to globulin ra niraj by protein electrophoresisOrdered By: Melissa Garcia on 04-19-2025 Albumin/Globulin Elph [Mass ratio] 0.7 0.7-1.7 [facility] Serum classic neutrophil cyt oplasmic antibody assay (units/volume)Ordered By: Melissa Garcia on 04-19-2025 Neutrophil cytoplasmic Ab.classic Qn (S) <1:20 titer Neg:<1:20 [facility] Serum globulin measurement ( mass/volume)Ordered By: Melissa Garcia on 04-19-2025 Globulin (S) [Mass/Vol] 3.7 g/dL 2.2-3.9 [facility] Serum or plasma beta globuli n measurement by electrophoresis (mass/volume)Ordered By: Melissa Garcia on 04-19-2025 Beta globulin Elph [Mass/Vol] 0.8 g/dL 0.7-1.3 [facility] Serum or plasma protein allan urement (mass/volume)Ordered By: Melissa Garcia on 04-19-2025 Protein [Mass/Vol] 6.4 g/dL 6.0-8.5 [facility] Serum or plasma protein mono clonal measurement by electrophoresis (mass/volume)Ordered By: Melissa Garcia on 04-19-2025 Protein.monoclonal Elph [Mass/Vol] Comment: g/dL Not Observed [facility] Serum perinuclear neutrophil cytoplasmic antibody titer by immunofluorescenceOrdered By: Melissa Garcia on 05-30-2025 Neutrophil cytoplasmic Ab.perinuclear IF (S) [Titer] <1:20 titer Neg:<1:20 [facility] Basic Metabolic Profile (BMP )on 04-18-2025 BUN/CRE 33.7 RATIO High 10-20 [facility] Comment on above: Performed By: #### L 503.0300, L501.2300, L503.0100, L504.0250, L500.2500, L501.5200, L100.0100 ####[facility] [address] [place], [address] Calcium [Mass/Vol] 9.3 mg/dL Normal 7.6-11.0 [facility] Comment on above: Performed By: #### L 503.0300, L501.2300, L503.0100, L504.0250, L500.2500, L501.5200, L100.0100 ####[facility] [address] [place], [address] Chloride [Moles/Vol] 100 mmol/L Normal 98-108 [facility] Comment on above: Performed By: #### L 503.0300, L501.2300, L503.0100, L504.0250, L500.2500, L501.5200, L100.0100 ####[facility] [address] [place], [address] CO2 [Moles/Vol] 24.2 mmol/L Normal 21.0-32.0 [facility] Comment on above: Performed By: #### L 503.0300, L501.2300, L503.0100, L504.0250, L500.2500, L501.5200, L100.0100 ####[facility] [address] [place], [address] Creatinine [Mass/Vol] 2.86 mg/dL High 0.70-1.20 [facility] Comment on above: Performed By: #### L 503.0300, L501.2300, L503.0100, L504.0250, L500.2500, L501.5200, L100.0100 ####[facility] [address] [place], [address] ECRCL 14.79 ml/min Low 50-250 [facility] Comment on above: Performed By: #### L 503.0300, L501.2300, L503.0100, L504.0250, L500.2500, L501.5200, L100.0100 ####[facility] [address] [place], [address] GAP 16 High 5-15 [facility] Comment on above: Performed By: #### L 503.0300, L501.2300, L503.0100, L504.0250, L500.2500, L501.5200, L100.0100 ####[facility] [address] [place], [address] GFR/1.73 sq M.predicted among non-blacks MDRD (S/P/Bld) [Vol rate/Area] 16 mL/min/{1.73_m2} Low >60 [facility] Comment on above: Result Comment: mL/m in/1.73m2 CKD-EPI Creatinine Equation (2020) Performed By: #### L 503.0300, L501.2300, L503.0100, L504.0250, L500.2500, L501.5200, L100.0100 ####[facility] [address] [place], [address] Glucose [Mass/Vol] 191 mg/dL High 70-99 [facility] Comment on above: Performed By: #### L 503.0300, L501.2300, L503.0100, L504.0250, L500.2500, L501.5200, L100.0100 ####[facility] [address] [place], [address] Potassium [Moles/Vol] 4.4 mmol/L Normal 3.3-5.1 [facility] Comment on above: Performed By: #### L 503.0300, L501.2300, L503.0100, L504.0250, L500.2500, L501.5200, L100.0100 ####[facility] [address] [place], [address] Sodium [Moles/Vol] 140 mmol/L Normal 133-145 [facility] Comment on above: Performed By: #### L 503.0300, L501.2300, L503.0100, L504.0250, L500.2500, L501.5200, L100.0100 ####[facility] [address] [place], [address] Urea nitrogen [Mass/Vol] 96 mg/dL High 4-19 [facility] Comment on above: Performed By: #### L 503.0300, L501.2300, L503.0100, L504.0250, L500.2500, L501.5200, L100.0100 ####[facility] [address] [place], [address] Bedside Glucoseon 04-18-2025 FINGERSTICK GLU 167 mg/dL High 74-106 [facility] Comment on above: Result Comment: RUSSELL GEMENT OF PATIENT CARE PER NURSING PROTOCOL Performed By: #### L 501.080 ####[facility] [address] [place], [address] FINGERSTICK GLU 153 mg/dL High 74-106 [facility] Comment on above: Result Comment: RUSSELL GEMENT OF PATIENT CARE PER NURSING PROTOCOL Performed By: #### L 501.080 ####[facility] [address] [place], [address] FINGERSTICK GLU 181 mg/dL High 74-106 [facility] Comment on above: Result Comment: RUSSELL GEMENT OF PATIENT CARE PER NURSING PROTOCOL Performed By: #### L 501.080 ####[facility] [address] [place], [address] FINGERSTICK GLU 176 mg/dL High 74-106 [facility] Comment on above: Result Comment: RUSSELL GEMENT OF PATIENT CARE PER NURSING PROTOCOL Performed By: #### L 501.080 ####[facility] [address] [place], [address] Blood cultureOrdered By: Ayo Bailey on 04-18-2025 Bacteria identified Cx Nom (Bld) No growth in 5 days. [facility] CBC W/Diff, Automatedon 03-22 Absolute Lymph 0.49 X10 3/uL Low 0.83-4.51 [facility] Comment on above: Performed By: #### L 503.0300, L501.2300, L503.0100, L504.0250, L500.2500, L501.5200, L100.0100 ####[facility] [address] [place], [address] Absolute Neut 12.4 X10 3/uL High 2.0-7.7 [facility] Comment on above: Performed By: #### L 503.0300, L501.2300, L503.0100, L504.0250, L500.2500, L501.5200, L100.0100 ####[facility] [address] [place], [address] Basophils/100 WBC (Bld) 0.1 % Normal 0-1 [facility] Comment on above: Performed By: #### L 503.0300, L501.2300, L503.0100, L504.0250, L500.2500, L501.5200, L100.0100 ####[facility] [address] [place], [address] Eosinophils/100 WBC (Bld) 0.0 % Normal 0-5 [facility] Comment on above: Performed By: #### L 503.0300, L501.2300, L503.0100, L504.0250, L500.2500, L501.5200, L100.0100 ####[facility] [address] [place], [address] Erythrocyte distribution width (RBC) [Ratio] 16.7 % High 11.6-14.6 [facility] Comment on above: Performed By: #### L 503.0300, L501.2300, L503.0100, L504.0250, L500.2500, L501.5200, L100.0100 ####[facility] [address] [place], [address] Hematocrit (Bld) [Volume fraction] 39.6 % Normal 37-47 [facility] Comment on above: Performed By: #### L 503.0300, L501.2300, L503.0100, L504.0250, L500.2500, L501.5200, L100.0100 ####[facility] [address] [place], [address] Hemoglobin (Bld) [Mass/Vol] 12.7 g/dL Normal 12.0-15.0 [facility] Comment on above: Performed By: #### L 503.0300, L501.2300, L503.0100, L504.0250, L500.2500, L501.5200, L100.0100 ####[facility] [address] [place], [address] IG% 0.600 Normal 0.0-0.9 [facility] Comment on above: Result Comment: IG% - Immature Granulocytes (promyelocytes, myelocytes andmetamyelocytes) > 1% indicates that a LEFT SHIFT is Present. Performed By: #### L 503.0300, L501.2300, L503.0100, L504.0250, L500.2500, L501.5200, L100.0100 ####[facility] [address] [place], [address] Lymphocytes/100 WBC (Bld) 3.5 % Low 19-41 [facility] Comment on above: Performed By: #### L 503.0300, L501.2300, L503.0100, L504.0250, L500.2500, L501.5200, L100.0100 ####[facility] [address] [place], [address] MCH (RBC) [Entitic mass] 28.5 pg Normal 27.0-32.0 [facility] Comment on above: Performed By: #### L 503.0300, L501.2300, L503.0100, L504.0250, L500.2500, L501.5200, L100.0100 ####[facility] [address] [place], [address] MCHC (RBC) [Mass/Vol] 32.1 g/dL Normal 32-36 [facility] Comment on above: Performed By: #### L 503.0300, L501.2300, L503.0100, L504.0250, L500.2500, L501.5200, L100.0100 ####[facility] [address] [place], [address] MCV (RBC) [Entitic vol] 89.0 fL Normal 81-99 [facility] Comment on above: Performed By: #### L 503.0300, L501.2300, L503.0100, L504.0250, L500.2500, L501.5200, L100.0100 ####[facility] [address] [place], [address] Monocytes/100 WBC (Bld) 6.3 % Normal 0-10 [facility] Comment on above: Performed By: #### L 503.0300, L501.2300, L503.0100, L504.0250, L500.2500, L501.5200, L100.0100 ####[facility] [address] [place], [address] Neutrophils/100 WBC (Bld) 89.5 % High 47-70 [facility] Comment on above: Performed By: #### L 503.0300, L501.2300, L503.0100, L504.0250, L500.2500, L501.5200, L100.0100 ####[facility] [address] [place], [address] Nucleated RBC (Bld) [#/Vol] 0 10*3/uL Normal 0-5 [facility] Comment on above: Performed By: #### L 503.0300, L501.2300, L503.0100, L504.0250, L500.2500, L501.5200, L100.0100 ####[facility] [address] [place], [address] Platelet mean volume (Bld) [Entitic vol] 9.9 fL Normal 6.2-12.0 [facility] Comment on above: Performed By: #### L 503.0300, L501.2300, L503.0100, L504.0250, L500.2500, L501.5200, L100.0100 ####[facility] [address] [place], [address] Platelets (Bld) [#/Vol] 347 10*3/uL Normal 150-450 [facility] Comment on above: Performed By: #### L 503.0300, L501.2300, L503.0100, L504.0250, L500.2500, L501.5200, L100.0100 ####[facility] [address] [place], [address] RBC (Bld) [#/Vol] 4.45 10*6/uL Normal 4.2-5.4 [facility] Comment on above: Performed By: #### L 503.0300, L501.2300, L503.0100, L504.0250, L500.2500, L501.5200, L100.0100 ####[facility] [address] [place], [address] RDW SD 54.4 fl High 35.1-43.9 [facility] Comment on above: Performed By: #### L 503.0300, L501.2300, L503.0100, L504.0250, L500.2500, L501.5200, L100.0100 ####[facility] [address] [place], [address] WBC (Bld) [#/Vol] 13.8 10*3/uL High 4.4-11.0 [facility] Comment on above: Performed By: #### L 503.0300, L501.2300, L503.0100, L504.0250, L500.2500, L501.5200, L100.0100 ####[facility] [address] [place], [address] CNPNon 04-18-2025 CNPN Normal [facility] Consultation - Cardiologyon 04-18-2025 Consultation - Cardiology Normal [facility] Consultation - Nephrologyon 04-18-2025 Consultation - Nephrology Normal [facility] Legionella Antigen Urineon 0 04-18-2025 LEGU Normal [facility] Comment on above: Performed By: #### M 300.4500, M300.4600 ####[facility] [address] [place], [address] M100.019on 04-18-2025 M100.019 Negative Normal [facility] Comment on above: Performed By: #### M 100.019 ####[facility] [address] [place], [address] Magnesiumon 04-18-2025 Magnesium [Mass/Vol] 2.5 mg/dL High 1.5-2.2 [facility] Comment on above: Performed By: #### L 503.0300, L501.2300, L503.0100, L504.0250, L500.2500, L501.5200, L100.0100 ####[facility] [address] [place], [address] Partial Thromboplast Timeon 04-18-2025 aPTT Coag (Bld) [Time] 101.3 s Invalid Interpretation Code 24.1-36.2 [facility] Comment on above: Order Comment: Comme nts: Time sensitive Heparin drip Result Comment: CRIT ICAL VALUE CALLED TO [id number]/29/25 2210 Sergio Pemberton.RESULTS READ BACK BY SAME. Performed By: #### L 300.4310 ####[facility] [address] [place], [address] aPTT Coag (Bld) [Time] 36.8 s High 24.1-36.2 [facility] Comment on above: Performed By: #### L 300.4310 ####[facility] [address] [place], [address] Phosphoruson 04-18-2025 Phosphate [Mass/Vol] 6.5 mg/dL High 2.7-4.5 [facility] Comment on above: Performed By: #### L 503.0300, L501.2300, L503.0100, L504.0250, L500.2500, L501.5200, L100.0100 ####[facility] [address] [place], [address] Protein+Creatinine Ratio,Uri neon 04-18-2025 PROT:CRE RATIO 965 mg/g CRE High 0-200 [facility] Comment on above: Performed By: #### L 501.0900 ####[facility] [address] [place], [address] Protein (U) [Mass/Vol] 76.7 mg/dL High 0.0-12.0 [facility] Comment on above: Performed By: #### L 501.0900 ####[facility] [address] [place], [address] UR CREAT 79.50 mg/dL Normal 28.00-217. 00 [facility] Comment on above: Performed By: #### L 501.0900 ####[facility] [address] [place], [address] Prothrombin Time w/INRon INR Coag (PPP) [Relative time] 2.5 {INR} Normal [facility] Comment on above: Performed By: #### L 300.3900 ####[facility] [address] [place], [address] PT Coag (PPP) [Time] 27.9 s High 11.7-14.9 [facility] Comment on above: Performed By: #### L 300.3900 ####[facility] [address] [place], [address] RESPIRATORY PANEL MOLECULARo n 04-18-2025 RP PANEL Normal [facility] Comment on above: Performed By: #### M 100.638 ####[facility] [address] [place], [address] Random urine creatinine allan urement (mass/volume)Ordered By: Melissa Garcia on 04-18-2025 Creatinine Unsp time (U) [Mass/Vol] 79.50 mg/dL 28.00-217. 00 [facility] Respiratory pathogens detect ion panel by molecular detection methodOrdered By: Amado Bailey on 04-18-2025 Respiratory pathogens DNA and RNA panel RIKA+probe (Resp) [facility] Jhbm-pyd-2Jrrjxuf By: Amado Bailey on 05-29-2025 SARS-CoV-2 (COVID-19) RNA RIKA+probe Ql (Unsp spec) [facility] Strep pneumoniae Antig(UR,CS F)on 04-18-2025 STPAG Normal [facility] Comment on above: Performed By: #### M 300.4500, M300.4600 ####[facility] [address] [place], [address] Urine Legionella pneumophila antigen detectionOrdered By: Amado Bailey on 04-18-2025 L. pneumophila Ag Ql (U) [facility] Urine protein measurement (m ass/volume)Ordered By: Melissa Garcia on 04-18-2025 Protein (U) [Mass/Vol] 76.7 mg/dL High 0.0-12.0 [facility] Urine protein/creatinine mas s ratioOrdered By: Melissa Garcia on 04-18-2025 Protein/Creatinine (U) [Mass ratio] 965 mg/g CRE High 0-200 [facility] Basic Metabolic Profile (BMP )on 04-17-2025 BUN/CRE 30.0 RATIO High 10-20 [facility] Comment on above: Performed By: #### L 501.9985, L100.0100, L501.5200, L500.2500 ####[facility] [address] [place], [address] Calcium [Mass/Vol] 9.4 mg/dL Normal 7.6-11.0 [facility] Comment on above: Performed By: #### L 501.9985, L100.0100, L501.5200, L500.2500 ####[facility] [address] [place], [address] Chloride [Moles/Vol] 98 mmol/L Normal 98-108 [facility] Comment on above: Performed By: #### L 501.9985, L100.0100, L501.5200, L500.2500 ####[facility] [address] [place], [address] CO2 [Moles/Vol] 22.2 mmol/L Normal 21.0-32.0 [facility] Comment on above: Performed By: #### L 501.9985, L100.0100, L501.5200, L500.2500 ####[facility] [address] [place], [address] Creatinine [Mass/Vol] 2.62 mg/dL High 0.70-1.20 [facility] Comment on above: Performed By: #### L 501.9985, L100.0100, L501.5200, L500.2500 ####[facility] [address] [place], [address] ECRCL 16.15 ml/min Low 50-250 [facility] Comment on above: Performed By: #### L 501.9985, L100.0100, L501.5200, L500.2500 ####[facility] [address] [place], [address] GAP 18 High 5-15 [facility] Comment on above: Performed By: #### L 501.9985, L100.0100, L501.5200, L500.2500 ####[facility] [address] [place], [address] GFR/1.73 sq M.predicted among non-blacks MDRD (S/P/Bld) [Vol rate/Area] 17 mL/min/{1.73_m2} Low >60 [facility] Comment on above: Result Comment: mL/m in/1.73m2 CKD-EPI Creatinine Equation (2020) Performed By: #### L 501.9985, L100.0100, L501.5200, L500.2500 ####[facility] [address] [place], [address] Glucose [Mass/Vol] 173 mg/dL High 70-99 [facility] Comment on above: Performed By: #### L 501.9985, L100.0100, L501.5200, L500.2500 ####[facility] [address] [place], [address] Potassium [Moles/Vol] 4.9 mmol/L Normal 3.3-5.1 [facility] Comment on above: Performed By: #### L 501.9985, L100.0100, L501.5200, L500.2500 ####[facility] [address] [place], [address] Sodium [Moles/Vol] 138 mmol/L Normal 133-145 [facility] Comment on above: Performed By: #### L 501.9985, L100.0100, L501.5200, L500.2500 ####[facility] [address] [place], [address] Urea nitrogen [Mass/Vol] 79 mg/dL High 4-19 [facility] Comment on above: Performed By: #### L 501.9985, L100.0100, L501.5200, L500.2500 ####[facility] [address] [place], [address] Bedside Glucoseon 04-17-2025 FINGERSTICK GLU 205 mg/dL High 74-106 [facility] Comment on above: Result Comment: RUSSELL GEMENT OF PATIENT CARE PER NURSING PROTOCOL Performed By: #### L 501.080 ####[facility] [address] [place], [address] FINGERSTICK GLU 197 mg/dL High 74-106 [facility] Comment on above: Result Comment: RUSSELL GEMENT OF PATIENT CARE PER NURSING PROTOCOL Performed By: #### L 501.080 ####[facility] [address] [place], [address] FINGERSTICK GLU 174 mg/dL High 74-106 [facility] Comment on above: Result Comment: RUSSELL GEMENT OF PATIENT CARE PER NURSING PROTOCOL Performed By: #### L 501.080 ####[facility] [address] [place], [address] FINGERSTICK GLU 175 mg/dL High 74-106 [facility] Comment on above: Result Comment: RUSSELL QUINTANILLA OF PATIENT CARE PER NURSING PROTOCOL Performed By: #### L 501.080 ####[facility] [address] [place], [address] CBC W/Diff, Automatedon 052 Absolute Lymph 0.60 X10 3/uL Low 0.83-4.51 [facility] Comment on above: Performed By: #### L 501.9985, L100.0100, L501.5200, L500.2500 ####[facility] [address] [place], [address] Absolute Neut 11.8 X10 3/uL High 2.0-7.7 [facility] Comment on above: Performed By: #### L 501.9985, L100.0100, L501.5200, L500.2500 ####[facility] [address] [place], [address] Basophils/100 WBC (Bld) 0.4 % Normal 0-1 [facility] Comment on above: Performed By: #### L 501.9985, L100.0100, L501.5200, L500.2500 ####[facility] [address] [place], [address] Eosinophils/100 WBC (Bld) 0.0 % Normal 0-5 [facility] Comment on above: Performed By: #### L 501.9985, L100.0100, L501.5200, L500.2500 ####[facility] [address] [place], [address] Erythrocyte distribution width (RBC) [Ratio] 16.8 % High 11.6-14.6 [facility] Comment on above: Performed By: #### L 501.9985, L100.0100, L501.5200, L500.2500 ####[facility] [address] [place], [address] Hematocrit (Bld) [Volume fraction] 41.3 % Normal 37-47 [facility] Comment on above: Performed By: #### L 501.9985, L100.0100, L501.5200, L500.2500 ####[facility] [address] [place], [address] Hemoglobin (Bld) [Mass/Vol] 13.0 g/dL Normal 12.0-15.0 [facility] Comment on above: Performed By: #### L 501.9985, L100.0100, L501.5200, L500.2500 ####[facility] [address] [place], [address] IG% 0.700 Normal 0.0-0.9 [facility] Comment on above: Result Comment: IG% - Immature Granulocytes (promyelocytes, myelocytes andmetamyelocytes) > 1% indicates that a LEFT SHIFT is Present. Performed By: #### L 501.9985, L100.0100, L501.5200, L500.2500 ####[facility] [address] [place], [address] Lymphocytes/100 WBC (Bld) 4.5 % Low 19-41 [facility] Comment on above: Performed By: #### L 501.9985, L100.0100, L501.5200, L500.2500 ####[facility] [address] [place], [address] MCH (RBC) [Entitic mass] 28.3 pg Normal 27.0-32.0 [facility] Comment on above: Performed By: #### L 501.9985, L100.0100, L501.5200, L500.2500 ####[facility] [address] [place], [address] MCHC (RBC) [Mass/Vol] 31.5 g/dL Low 32-36 [facility] Comment on above: Performed By: #### L 501.9985, L100.0100, L501.5200, L500.2500 ####[facility] [address] [place], [address] MCV (RBC) [Entitic vol] 90.0 fL Normal 81-99 [facility] Comment on above: Performed By: #### L 501.9985, L100.0100, L501.5200, L500.2500 ####[facility] [address] [place], [address] Monocytes/100 WBC (Bld) 6.7 % Normal 0-10 [facility] Comment on above: Performed By: #### L 501.9985, L100.0100, L501.5200, L500.2500 ####[facility] [address] [place], [address] Neutrophils/100 WBC (Bld) 87.7 % High 47-70 [facility] Comment on above: Performed By: #### L 501.9985, L100.0100, L501.5200, L500.2500 ####[facility] [address] [place], [address] Nucleated RBC (Bld) [#/Vol] 0 10*3/uL Normal 0-5 [facility] Comment on above: Performed By: #### L 501.9985, L100.0100, L501.5200, L500.2500 ####[facility] [address] [place], [address] Platelet mean volume (Bld) [Entitic vol] 10.4 fL Normal 6.2-12.0 [facility] Comment on above: Performed By: #### L 501.9985, L100.0100, L501.5200, L500.2500 ####[facility] [address] [place], [address] Platelets (Bld) [#/Vol] 365 10*3/uL Normal 150-450 [facility] Comment on above: Performed By: #### L 501.9985, L100.0100, L501.5200, L500.2500 ####[facility] [address] [place], [address] RBC (Bld) [#/Vol] 4.59 10*6/uL Normal 4.2-5.4 [facility] Comment on above: Performed By: #### L 501.9985, L100.0100, L501.5200, L500.2500 ####[facility] [address] [place], [address] RDW SD 55.6 fl High 35.1-43.9 [facility] Comment on above: Performed By: #### L 501.9985, L100.0100, L501.5200, L500.2500 ####[facility] [address] [place], [address] WBC (Bld) [#/Vol] 13.5 10*3/uL High 4.4-11.0 [facility] Comment on above: Performed By: #### L 501.9985, L100.0100, L501.5200, L500.2500 ####[facility] [address] [place], [address] Chest 1 View (Portable)on Chest 1 View (Portable) Normal [facility] Chest without Contraston Chest without Contrast Normal [facility] Gram Stainon 04-17-2025 GS Acceptable Specimen? Yes (<25 Epithelial cells per/lpf) Gram Stain 3+ Gram positive rods 2+ Gram negative rods 2+ Gram positive cocci 1+ Epithelial cells 1+ White Blood Cells Normal [facility] Comment on above: Performed By: #### M 100.2000, M100.2400 ####[facility] [address] [place], [address] Hemoglobin A1con 04-17-2025 HbA1c (Bld) [Mass fraction] 6.9 % High <=5.6 [facility] Comment on above: Result Comment: Norm al < 5.7 % Prediabetic 5.7 - 6.4 % Diabetic >or= 6.5 % Please note range changes. Performed By: #### L 501.9985, L100.0100, L501.5200, L500.2500 ####[facility] [address] [place], [address] Hemoglobin A1c percentageOrd ered By: Ras Blas on 04-17-2025 HbA1c (Bld) [Mass fraction] 6.9 % High <5.7 [facility] Kidney and Bladderon 025 Kidney and Bladder Normal [facility] Magnesiumon 04-17-2025 Magnesium [Mass/Vol] 2.4 mg/dL High 1.5-2.2 [facility] Comment on above: Performed By: #### L 501.9985, L100.0100, L501.5200, L500.2500 ####[facility] [address] [place], [address] Thoracentesis W USon 025 Thoracentesis W US Normal [facility] Urea Nitrogen, Urineon 04-17 URINE UREA 301 mg/dL Normal NO RANGE EST. [facility] Comment on above: Performed By: #### L 502.0715 ####[facility] [address] [place], [address] 12 Lead EKGon 04-16-2025 12 Lead EKG Normal [facility] Absolute lymphocyte countOrd ered By: Nathan Castanon on 04-16-2025 Lymphocytes Auto (Unsp spec) [#/Vol] 0.77 10*3/uL Low 0.83-4.51 [facility] Absolute neutrophil countOrd ered By: Nathan Castanon on 04-16-2025 Neutrophils (Bld) [#/Vol] 11.4 10*3/uL High 2.0-7.7 [facility] Activated partial thrombopla stin time (aPTT) in platelet poor plasma by coagulation aOrdered By: Nathan Castanon on 04-16-2025 aPTT Coag (PPP) [Time] 36.3 s High 24.1-36.2 [facility] Anion gap in Serum or Plasma Ordered By: Nathanroger Castanon on 04-16-2025 Anion gap [Moles/Vol] 19 mmol/L High 5-15 [facility] Automated lymphocyte count a s percentage of total leukocytesOrdered By: Nathan Castanon on 04-16-2025 Lymphocytes/100 WBC Auto (Unsp spec) 5.7 % Low 19-41 [facility] BUN/creatinine ratioOrdered By: [facility] 04-16-2025 Urea nitrogen/Creatinine [Mass ratio] 28.7 mg/mg High 10-20 [facility] Basic Metabolic Profile (BMP )on 04-16-2025 BUN/CRE 28.7 RATIO High 10- [facility] Comment on above: Performed By: #### L 501.4021, L100.0100, L503.7505, L300.3900, L500.2500, L300.4310 ####[facility] [address] [place], [address] Calcium [Mass/Vol] 9.5 mg/dL Normal 7.6-11.0 [facility] Comment on above: Performed By: #### L 501.4021, L100.0100, L503.7505, L300.3900, L500.2500, L300.4310 ####[facility] [address] [place], [address] Chloride [Moles/Vol] 98 mmol/L Normal 98-108 [facility] Comment on above: Performed By: #### L 501.4021, L100.0100, L503.7505, L300.3900, L500.2500, L300.4310 ####[facility] [address] [place], [address] CO2 [Moles/Vol] 19.6 mmol/L Low 21.0-32.0 [facility] Comment on above: Performed By: #### L 501.4021, L100.0100, L503.7505, L300.3900, L500.2500, L300.4310 ####[facility] [address] [place], [address] Creatinine [Mass/Vol] 2.31 mg/dL High 0.70-1.20 [facility] Comment on above: Performed By: #### L 501.4021, L100.0100, L503.7505, L300.3900, L500.2500, L300.4310 ####[facility] [address] [place], [address] ECRCL 18.55 ml/min Low 50-250 [facility] Comment on above: Performed By: #### L 501.4021, L100.0100, L503.7505, L300.3900, L500.2500, L300.4310 ####[facility] [address] [place], [address] GAP 19 High 5-15 [facility] Comment on above: Performed By: #### L 501.4021, L100.0100, L503.7505, L300.3900, L500.2500, L300.4310 ####[facility] [address] [place], [address] GFR/1.73 sq M.predicted among non-blacks MDRD (S/P/Bld) [Vol rate/Area] 20 mL/min/{1.73_m2} Low >60 [facility] Comment on above: Result Comment: mL/m in/1.73m2 CKD-EPI Creatinine Equation (2020) Performed By: #### L 501.4021, L100.0100, L503.7505, L300.3900, L500.2500, L300.4310 ####[facility] [address] [place], [address] Glucose [Mass/Vol] 157 mg/dL High 70-99 [facility] Comment on above: Performed By: #### L 501.4021, L100.0100, L503.7505, L300.3900, L500.2500, L300.4310 ####[facility] [address] [place], [address] Potassium [Moles/Vol] 5.2 mmol/L High 3.3-5.1 [facility] Comment on above: Result Comment: Hemo lysis present, Results??could be affected.?? Performed By: #### L 501.4021, L100.0100, L503.7505, L300.3900, L500.2500, L300.4310 ####[facility] [address] [place], [address] Sodium [Moles/Vol] 137 mmol/L Normal 133-145 [facility] Comment on above: Performed By: #### L 501.4021, L100.0100, L503.7505, L300.3900, L500.2500, L300.4310 ####[facility] [address] [place], [address] Urea nitrogen [Mass/Vol] 66 mg/dL High 4-19 [facility] Comment on above: Performed By: #### L 501.4021, L100.0100, L503.7505, L300.3900, L500.2500, L300.4310 ####[facility] [address] [place], [address] Basophil percentageOrdered B y: Nathan FrederickAnilaMagaly on 04-16-2025 Basophils/100 WBC (Bld) 0.4 % 0-1 [facility] Bedside Glucoseon 04-16-2025 FINGERSTICK GLU 158 mg/dL High 74-106 [facility] Comment on above: Result Comment: RUSSELL GEMENT OF PATIENT CARE PER NURSING PROTOCOL Performed By: #### L 501.080 ####[facility] [address] [place], [address] FINGERSTICK GLU 160 mg/dL High 74-106 [facility] Comment on above: Result Comment: RUSSELL GEMENT OF PATIENT CARE PER NURSING PROTOCOL Performed By: #### L 501.080 ####[facility] [address] [place], [address] Bilirubin Test strip Ql (U)O rdered By: Ras Blas on 04-16-2025 Bilirubin Ql (U) Negative Negative [facility] CBC W/Diff, Automatedon 03-22 Absolute Lymph 0.77 X10 3/uL Low 0.83-4.51 [facility] Comment on above: Performed By: #### L 501.4021, L100.0100, L503.7505, L300.3900, L500.2500, L300.4310 ####[facility] [address] [place], [address] Absolute Neut 11.4 X10 3/uL High 2.0-7.7 [facility] Comment on above: Performed By: #### L 501.4021, L100.0100, L503.7505, L300.3900, L500.2500, L300.4310 ####[facility] [address] [place], [address] Basophils/100 WBC (Bld) 0.4 % Normal 0-1 [facility] Comment on above: Performed By: #### L 501.4021, L100.0100, L503.7505, L300.3900, L500.2500, L300.4310 ####[facility] [address] [place], [address] Eosinophils/100 WBC (Bld) 0.1 % Normal 0-5 [facility] Comment on above: Performed By: #### L 501.4021, L100.0100, L503.7505, L300.3900, L500.2500, L300.4310 ####[facility] [address] [place], [address] Erythrocyte distribution width (RBC) [Ratio] 16.8 % High 11.6-14.6 [facility] Comment on above: Performed By: #### L 501.4021, L100.0100, L503.7505, L300.3900, L500.2500, L300.4310 ####[facility] [address] [place], [address] Hematocrit (Bld) [Volume fraction] 42.8 % Normal 37-47 [facility] Comment on above: Performed By: #### L 501.4021, L100.0100, L503.7505, L300.3900, L500.2500, L300.4310 ####[facility] [address] [place], [address] Hemoglobin (Bld) [Mass/Vol] 13.3 g/dL Normal 12.0-15.0 [facility] Comment on above: Performed By: #### L 501.4021, L100.0100, L503.7505, L300.3900, L500.2500, L300.4310 ####[facility] [address] [place], [address] IG% 0.300 Normal 0.0-0.9 [facility] Comment on above: Result Comment: IG% - Immature Granulocytes (promyelocytes, myelocytes andmetamyelocytes) > 1% indicates that a LEFT SHIFT is Present. Performed By: #### L 501.4021, L100.0100, L503.7505, L300.3900, L500.2500, L300.4310 ####[facility] [address] [place], [address] Lymphocytes/100 WBC (Bld) 5.7 % Low 19-41 [facility] Comment on above: Performed By: #### L 501.4021, L100.0100, L503.7505, L300.3900, L500.2500, L300.4310 ####[facility] [address] [place], [address] MCH (RBC) [Entitic mass] 28.1 pg Normal 27.0-32.0 [facility] Comment on above: Performed By: #### L 501.4021, L100.0100, L503.7505, L300.3900, L500.2500, L300.4310 ####[facility] [address] [place], [address] MCHC (RBC) [Mass/Vol] 31.1 g/dL Low 32-36 [facility] Comment on above: Performed By: #### L 501.4021, L100.0100, L503.7505, L300.3900, L500.2500, L300.4310 ####[facility] [address] [place], [address] MCV (RBC) [Entitic vol] 90.5 fL Normal 81-99 [facility] Comment on above: Performed By: #### L 501.4021, L100.0100, L503.7505, L300.3900, L500.2500, L300.4310 ####[facility] [address] [place], [address] Monocytes/100 WBC (Bld) 9.2 % Normal 0-10 [facility] Comment on above: Performed By: #### L 501.4021, L100.0100, L503.7505, L300.3900, L500.2500, L300.4310 ####[facility] [address] [place], [address] Neutrophils/100 WBC (Bld) 84.3 % High 47-70 [facility] Comment on above: Performed By: #### L 501.4021, L100.0100, L503.7505, L300.3900, L500.2500, L300.4310 ####[facility] [address] [place], [address] Nucleated RBC (Bld) [#/Vol] 0 10*3/uL Normal 0-5 [facility] Comment on above: Performed By: #### L 501.4021, L100.0100, L503.7505, L300.3900, L500.2500, L300.4310 ####[facility] [facility] [address] [place], [address] Platelet mean volume (Bld) [Entitic vol] 10.2 fL Normal 6.2-12.0 [facility] Comment on above: Performed By: #### L 501.4021, L100.0100, L503.7505, L300.3900, L500.2500, L300.4310 ####[facility] [address] [place], [address] Platelets (Bld) [#/Vol] 322 10*3/uL Normal 150-450 [facility] Comment on above: Performed By: #### L 501.4021, L100.0100, L503.7505, L300.3900, L500.2500, L300.4310 ####[facility] [address] [place], [address] RBC (Bld) [#/Vol] 4.73 10*6/uL Normal 4.2-5.4 [facility] Comment on above: Performed By: #### L 501.4021, L100.0100, L503.7505, L300.3900, L500.2500, L300.4310 ####[facility] [address] [place], [address] RDW SD 56.1 fl High 35.1-43.9 [facility] Comment on above: Performed By: #### L 501.4021, L100.0100, L503.7505, L300.3900, L500.2500, L300.4310 ####[facility] [address] [place], [place], [address] WBC (Bld) [#/Vol] 13.5 10*3/uL High 4.4-11.0 [facility] Comment on above: Performed By: #### L 501.4021, L100.0100, L503.7505, L300.3900, L500.2500, L300.4310 ####[facility] [address] [place], [place], [address] Carbon dioxide, total [Moles /volume] in Central venous bloodOrdered By: Nathan Castanon on 04-16-2025 CO2 [Moles/Vol] 19.6 mmol/L Low 21.0-32.0 [facility] Chest PA and Lateralon 04-16 Chest PA and Lateral Normal [facility] Chloride assayOrdered By: Rasta Castanon on 04-16-2025 Chloride [Moles/Vol] 98 mmol/L 98-108 [facility] Creatinine, Urineon 04-16-20 URINE CREAT 96.50 mg/dL Normal 28.00-217. 00 [facility] Comment on above: Performed By: #### L 502.0300 ####[facility] [address] [place], [place], [address] Echo Completeon 04-16-2025 Echo Complete Normal [facility] Echocardiogram study reportO rdered By: Edward Le on 04-16-2025 Study report [facility] Work Phone: Emergency Department Summary on 04-16-2025 Emergency Department Summary Normal [facility] Eosinophil percentageOrdered By: Nathan Castanon on 04-16-2025 Eosinophils/100 WBC (Bld) 0.1 % 0-5 [facility] Erythrocyte distribution wid th ratioOrdered By: Nathan Castanon on 04-16-2025 Erythrocyte distribution width (RBC) [Ratio] 16.8 % High 11.6-14.6 [facility] Erythrocyte distribution wid th standard deviationOrdered By: Nathan Mckenzie on 04-16-2025 Erythrocyte distribution width (RBC) [Ratio] 56.1 fl High 35.1-43.9 [facility] Glomerular filtration rate ( GFR) estimation/1.73 sq m using serum, plasma, or whole bOrdered By: Nathan Castanon on 04-16-2025 GFR/1.73 sq M.predicted among non-blacks MDRD (S/P/Bld) [Vol rate/Area] 20 mL/min/{1.73_m2} Low >60 [facility] Comment on above: mL/min/1.73m2 CKD-EP I Creatinine Equation (2020) Gram stainOrdered By: Ras gallardo on 04-16-2025 Microscopic observation Gram stain Nom (Unsp spec) [facility] H AND P Exam - Hospitaliston 04-16-2025 H&P Exam - Hospitalist Normal [facility] Hematocrit Auto (Bld) [Volum e fraction]Ordered By: Nathan Castanon on 04-16-2025 Hematocrit (Bld) [Volume fraction] 42.8 % 37-47 [facility] Hemoglobin measurementOrdere d By: Nathan Castanon on 04-16-2025 Hemoglobin (Bld) [Mass/Vol] 13.3 g/dL 12.0-15.0 [facility] Immature granulocytes/100 WB C Auto (Bld)Ordered By: Nathan Castanon on 04-16-2025 Immature granulocytes/100 WBC (Bld) 0.300 % 0.0-0.9 [facility] Comment on above: IG% - Immature Granu locytes (promyelocytes, myelocytes and metamyelocytes) > 1% indicates that a LEFT SHIFT is Present. International normalized rat io (INR) calculationOrdered By: Nathan Castanon on 04-16-2025 INR Coag (Bld) [Relative time] 3.4 {INR} [facility] Ketones Test strip Ql (U)Ord ered By: Ras Blas on 04-16-2025 Ketones Ql (U) Negative Negative [facility] L499.0042on 04-16-2025 Trop T High Sen 33 ng/L High <=14 [facility] Comment on above: Performed By: #### L 499.0042 ####[facility] [address] [facility] [place], [address] L501.4021on 04-16-2025 Trop T High Sen 46 ng/L High <=14 [facility] Comment on above: Performed By: #### L 501.4021, L100.0100, L503.7505, L300.3900, L500.2500, L300.4310 ####[facility] [address] [facility], [address] L503.7505on 04-16-2025 Natriuretic peptide B (Bld) [Mass/Vol] 4839 pg/mL High <=1800 [facility] Comment on above: Result Comment: Hear t Failure Unlikely: < 300 pg/mLHeart Failure Likely< 50 Years: > 450 pg/mL50-75 Years: > 900 pg/mL>75 Years: > 1800 pg/mL Performed By: #### L 501.4021, L100.0100, L503.7505, L300.3900, L500.2500, L300.4310 ####[facility] [address] [place], [address] MCV (mean corpuscular volume ) determinationOrdered By: Nathan Castanon on 04-16-2025 MCV (RBC) [Entitic vol] 90.5 fL 81-99 [facility] Mean corpuscular hemoglobin (MCH) determinationOrdered By: Nathan Castanon on 04-16-2025 MCH (RBC) [Entitic mass] 28.1 pg 27.0-32.0 [facility] Mean corpuscular hemoglobin concentration (MCHC) determinationOrdered By: Nathan Castanno on 04-16-2025 MCHC (RBC) [Mass/Vol] 31.1 g/dL Low 32-36 [facility] Mean platelet volume determi nationOrdered By: Nathan Castanon on 04-16-2025 Platelet mean volume (Bld) [Entitic vol] 10.2 fL 6.2-12.0 [facility] Microbial respiratory cultur eOrdered By: Ras Blas on 04-16-2025 Microorganism identified Cx Nom (Unsp spec) Klebsiella pneumoniae sp pneum Abnormal [facility] Monocyte percentageOrdered B y: Nathan Castanon on 04-16-2025 Monocytes/100 WBC (Bld) 9.2 % 0-10 [facility] Mucus LM Ql (Urine sed)Order ed By: Ras Blas on 04-16-2025 Mucus Ql (Urine sed) 0 SEEN /hpf [facility] Natriuretic peptide.B prohor courtney N-Terminal [Mass/volume] in Serum or PlasmaOrdered By: Nathan Castanon on 04-16-2025 Natriuretic peptide.B prohormone N-Terminal [Mass/Vol] 4839 pg/mL High <1800 [facility] Comment on above: Heart Failure Unlike ly: < 300 pg/mLHeart Failure Likely< 50 Years: > 450 pg/mL50-75 Years: > 900 pg/mL>75 Years: > 1800 pg/mL Neutrophil percentageOrdered By: Nathan Castanon on 04-16-2025 Neutrophils/100 WBC (Bld) 84.3 % High 47-70 [facility] Nitrite Test strip Ql (U)Ord ered By: Ras Blas on 04-16-2025 Nitrite Ql (U) Negative Negative [facility] Nucleated red blood cell per centageOrdered By: Nathan Castanon on 04-16-2025 Nucleated RBC/100 WBC (Bld) [Ratio] 0 % 0-5 [facility] Partial Thromboplast Timeon 04-16-2025 aPTT Coag (Bld) [Time] 36.3 s High 24.1-36.2 [facility] Comment on above: Performed By: #### L 501.4021, L100.0100, L503.7505, L300.3900, L500.2500, L300.4310 ####[facility] [address] [place], [address] Platelet countOrdered By: Rasta Castanon on 04-16-2025 Platelets (Bld) [#/Vol] 322 10*3/uL 150-450 [facility] Potassium measurement (mass/ volume)Ordered By: Nathan Juan on 04-16-2025 Potassium (Unsp spec) [Mass/Vol] 5.2 mmol/L High 3.3-5.1 [facility] Comment on above: Hemolysis present, R esults could be affected. Protein Test strip Ql (U)Ord ered By: Ras Blas on 04-16-2025 Protein Ql (U) 100 mg/dl High Negative [facility] Prothrombin Time w/INRon INR Coag (PPP) [Relative time] 3.4 {INR} Normal [facility] Comment on above: Performed By: #### L 501.4021, L100.0100, L503.7505, L300.3900, L500.2500, L300.4310 ####[facility] [address] [place], [address] PT Coag (PPP) [Time] 34.7 s High 11.7-14.9 [facility] Comment on above: Performed By: #### L 501.4021, L100.0100, L503.7505, L300.3900, L500.2500, L300.4310 ####[facility] [address] [place], [address] Prothrombin timeOrdered By: Nathan Castanon on 04-16-2025 PT Coag (PPP) [Time] 34.7 s High 11.7-14.9 [facility] RBC Auto (Bld) [#/Vol]Ordere d By: Nathan Castanon on 04-16-2025 RBC (Bld) [#/Vol] 4.73 10*6/uL 4.2-5.4 [facility] Serum creatinine measurement (mass/volume)Ordered By: Nathan Castanon on 04-16-2025 Creatinine [Mass/Vol] 2.31 mg/dL High 0.70-1.20 [facility] Serum glucose measurement (m ass/volume)Ordered By: Nathan Castanon on 04-16-2025 Glucose [Mass/Vol] 157 mg/dL High 70-99 [facility] Serum or plasma calcium allan urement (mass/volume)Ordered By: Nathan Mckenzie on 04-16-2025 Calcium [Mass/Vol] 9.5 mg/dL 7.6-11.0 [facility] Serum or plasma urea nitroge n measurement (mass/volume)Ordered By: Nathan Castanon on 04-16-2025 Urea nitrogen [Mass/Vol] 66 mg/dL High 4-19 [facility] Sodium levelOrdered By: Neal Castanon on 04-16-2025 Sodium [Moles/Vol] 137 mmol/L 133-145 [facility] Squamous epithelial cells de tection in urine sediment by light microscopyOrdered By: Ras Blas on 04-16-2025 Epithelial cells.squamous LM Ql (Urine sed) 0-5 SEEN /hpf 5-10 [facility] Troponin T.cardiac [Mass/vol ume] in Serum or Plasma by High sensitivity methodOrdered By: Nathan Castanon on 04-16-2025 Troponin T.cardiac High sensitivity method [Mass/Vol] 33 ng/L High <14 [facility] Troponin T.cardiac High sensitivity method [Mass/Vol] 46 ng/L High <14 [facility] Urinalysis, Completeon 04-16 EPI,SQUAMOUS 0-5 SEEN Normal 5-10 [facility] Comment on above: Order Comment: SUMAN CTOR TO SPECIFY Performed By: #### L 400.0001 ####[facility] [address] [place], [address] RBC 0-5 SEEN Normal 0-5 [facility] Comment on above: Order Comment: SUMAN CTOR TO SPECIFY Performed By: #### L 400.0001 ####[facility] [address] [place], [address] WBC 5-10 SEEN Normal 0-5 [facility] Comment on above: Order Comment: SUMAN CTOR TO SPECIFY Performed By: #### L 400.0001 ####[facility] [address] [facility] [address] BACTERIA 0 SEEN Normal None Seen [facility] Comment on above: Order Comment: SUMAN CTOR TO SPECIFY Performed By: #### L 400.0001 ####[facility] [address] [place], [address] Mucus Ql (Urine sed) 0 SEEN Normal [facility] Comment on above: Order Comment: SUMAN CTOR TO SPECIFY Performed By: #### L 400.0001 ####[facility] [address] [place], [address] Urine clarityOrdered By: Nicky Blas on 04-16-2025 Clarity (U) Sl. Cloudy Clear [facility] Urine color determinationOrd ered By: Ras Blas on 04-16-2025 Color (U) Yellow Yellow [facility] Urine glucose detectionOrder ed By: Ras Blas on 04-16-2025 Glucose Ql (U) Normal mg/dl Normal [facility] Urine leukocyte esterase det ection by dipstickOrdered By: Ras Blas on 04-16-2025 Leukocyte esterase Test strip Ql (U) 25 /ul High Negative [facility] Urine pHOrdered By: Ras balderas on 04-16-2025 pH (U) 5.0 [pH] 5.0 - 8.0 [facility] Urine sediment bacteria coun t by microscopy (number/high power field)Ordered By: Ras Blas on 04-16-2025 Bacteria LM.HPF (Urine sed) [#/Area] 0 /[HPF] None Seen [facility] Urine specific gravity measu rementOrdered By: Ras Blas on 04-16-2025 Specific gravity (U) [Rel density] 1.020 1.002-1.03 0 [facility] Urine urobilinogen measureme ntOrdered By: Ras Blas on 04-16-2025 Urobilinogen Ql (U) Normal mg/dl Normal [facility] White blood cell (WBC) count Ordered By: Nathan Castanon on 04-16-2025 WBC (Bld) [#/Vol] 13.5 10*3/uL High 4.4-11.0 [facility] White blood cell countOrdere d By: Ras Blas on 04-16-2025 White blood cell count 5-10 SEEN /hpf 0-5 [facility] CNOVon 03-04-2025 CNOV Normal [facility] CNOVon 03-01-2025 CNOV Normal [facility] CBC panel Auto (Bld)on 02-27 Erythrocyte distribution width (RBC) [Ratio] 16.6 % High 11.5-15.0 [facility] Comment on above: Order Comment: Speci men Type: BLOOD SPECIMENOrdering Facility: [facility] Address: [address] [place] [address] Performed By: #### 5 8410-2 ####[facility] LABCLIA [id number] [place] [address] [place] Hematocrit (Bld) [Volume fraction] 42.5 % Normal 36.0-46.0 [facility] Comment on above: Order Comment: Speci men Type: BLOOD SPECIMENOrdering Facility: [facility] Address: [address] [place] [address] Performed By: #### 5 8410-2 ####[facility] LABIA [id number] [place] [address] [place] Hemoglobin (Bld) [Mass/Vol] 12.9 g/dL Normal 11.5-15.5 [facility] Comment on above: Order Comment: Speci men Type: BLOOD SPECIMENOrdering Facility: [facility] Address: [address] [place] [address] Performed By: #### 5 8410-2 ####[facility] LABIA [id number] [place] [address] [place] MCH (RBC) [Entitic mass] 27.8 pg Normal 26.0-34.0 [facility] Comment on above: Order Comment: Speci men Type: BLOOD SPECIMENOrdering Facility: [facility] Address: [address] [place] [address] Performed By: #### 5 8410-2 ####[facility] LABIA [id number] [place] [address] [place] MCHC (RBC) [Mass/Vol] 30.4 g/dL Low 30.5-36.0 [facility] Comment on above: Order Comment: Speci men Type: BLOOD SPECIMENOrdering Facility: [facility] Address: [address] [place] [address] Performed By: #### 5 8410-2 ####[facility] LABCLIA [id number] [place] [address] [place] MCV (RBC) [Entitic vol] 91.6 fL Normal 80.0-100.0 [facility] Comment on above: Order Comment: Speci men Type: BLOOD SPECIMENOrdering Facility: [facility] Address: [address] [place] [address] Performed By: #### 5 8410-2 ####[facility] LABCLIA [id number] [place] [address] [place] Nucleated RBC (Bld) [#/Vol] 10*3/uL Normal <0.01 [facility] Comment on above: Order Comment: Speci men Type: BLOOD SPECIMENOrdering Facility: [facility] Address: [address] [place] [address] Performed By: #### 5 8410-2 ####[facility] LABIA [id number] [place] [address] [place] Platelet mean volume (Bld) [Entitic vol] 11.4 fL Normal 9.0-12.7 [facility] Comment on above: Order Comment: Speci men Type: BLOOD SPECIMENOrdering Facility: [facility] Address: [address] [place] [address] Performed By: #### 5 8410-2 ####[facility] LABIA [id number] [place] [address] [place] Platelets (Bld) [#/Vol] 269 10*3/uL Normal 150-400 [facility] Comment on above: Order Comment: Speci men Type: BLOOD SPECIMENOrdering Facility: [facility] Address: [address] [place] [address] Performed By: #### 5 8410-2 ####[facility] LABIA [id number] [place] [address] [place] RBC (Bld) [#/Vol] 4.64 10*6/uL Normal 3.90-5.20 [facility] Comment on above: Order Comment: Speci men Type: BLOOD SPECIMENOrdering Facility: [facility] Address: [address] [place] [address] Performed By: #### 5 8410-2 ####[facility] LABIA [id number] [place] [address] [place] WBC (Bld) [#/Vol] 7.64 10*3/uL Normal 3.70-11.00 [facility] Comment on above: Order Comment: Speci men Type: BLOOD SPECIMENOrdering Facility: [facility] Address: [address] [place] [address] Performed By: #### 5 8410-2 ####[facility] LABCLIA [id number] [place] [id number] [place] [facility] Comprehensive metabolic 2000 panelon 02-27-2025 Albumin [Mass/Vol] 4.0 g/dL Normal 3.9-4.9 [facility] Comment on above: Order Comment: Speci men Type: BLOOD SPECIMENOrdering Facility: [facility] Address: [address] [place] [address] Performed By: #### 3 016-3, 39160-3, 39863-7, 06000-7 ####[facility] LABCLIA [id number] [place] [address] [place] ALP [Catalytic activity/Vol] 177 U/L High 34-123 [facility] Comment on above: Order Comment: Speci men Type: BLOOD SPECIMENOrdering Facility: [facility] Address: [address] [place] [address] Performed By: #### 3 016-3, 49234-2, 30890-4, 02391-1 ####[facility] LABCLIA [id number] [place] [address] [place] ALT [Catalytic activity/Vol] 25 U/L Normal 7-38 [facility] Comment on above: Order Comment: Speci men Type: BLOOD SPECIMENOrdering Facility: [facility] Address: [address] [place] [address] Performed By: #### 3 016-3, 80217-1, 80563-3, 38317-7 ####[facility] LABCLIA [id number] [place] [id number] [place] Anion gap [Moles/Vol] 11 mmol/L Normal 8-15 [facility] Comment on above: Order Comment: Speci men Type: BLOOD SPECIMENOrdering Facility: [facility] Address: [address] [place] [address] Performed By: #### 3 016-3, 31957-3, 79699-0, 77207-2 ####[facility] LABCLIA [id number] [place] [address] [place] AST [Catalytic activity/Vol] 28 U/L Normal 13-35 [facility] Comment on above: Order Comment: Speci men Type: BLOOD SPECIMENOrdering Facility: [facility] Address: [address] [place] [address] Performed By: #### 3 016-3, 62396-5, 71597-3, 63030-5 ####[facility] LABCLIA [id number] [place] [address] [place] Bilirubin [Mass/Vol] 0.4 mg/dL Normal 0.2-1.3 [facility] Comment on above: Order Comment: Speci men Type: BLOOD SPECIMENOrdering Facility: [facility] Address: [address] [place] [address] Performed By: #### 3 016-3, 99653-0, 35285-8, 02959-9 ####[facility] LABCLIA [id number] [place] [address] [place] Calcium [Mass/Vol] 9.9 mg/dL Normal 8.5-10.2 [facility] Comment on above: Order Comment: Speci men Type: BLOOD SPECIMENOrdering Facility: [facility] Address: [address] [place] [address] Performed By: #### 3 016-3, 53285-5, 73500-4, 65798-9 ####[facility] LABCLIA [id number] [place] [id number] [place] Chloride [Moles/Vol] 100 mmol/L Normal 98-107 [facility] Comment on above: Order Comment: Speci men Type: BLOOD SPECIMENOrdering Facility: [facility] Address: [address] [place] [address] Performed By: #### 3 016-3, 93615-8, 13088-2, 25630-7 ####[facility] LABCLIA [id number] [place] [address] [place] CO2 [Moles/Vol] 30 mmol/L Normal 22-30 [facility] Comment on above: Order Comment: Speci men Type: BLOOD SPECIMENOrdering Facility: [facility] Address: [address] [place] [address] Performed By: #### 3 016-3, 90375-8, 30185-1, 82674-9 ####[facility] LABIA [id number] [place] [address] [place] Creatinine [Mass/Vol] 1.11 mg/dL High 0.58-0.96 [facility] Comment on above: Order Comment: Speci men Type: BLOOD SPECIMENOrdering Facility: [facility] Address: [address] [place] [address] Performed By: #### 3 016-3, 75707-0, 69319-7, 96402-8 ####[facility] LABIA [id number] [place] [address] [place] Creatinine and Glomerular filtration rate.predicted panel (S/P/Bld) 49 mL/min/1.73m??? Low >=60 [facility] Comment on above: Order Comment: Speci men Type: BLOOD SPECIMENOrdering Facility: [facility] Address: [address] [place] [address] Result Comment: Aura mated Glomerular Filtration Rate [...] accurately reflect actual GFR. Performed By: #### 3 016-3, 38266-8, 23232-0, 46279-2 ####[facility] LABCLIA [id number] [address] [address] [place] Glucose [Mass/Vol] 128 mg/dL High 74-99 [facility] Comment on above: Order Comment: Speci men Type: BLOOD SPECIMENOrdering Facility: [facility] Address: [address] [place] [address] Result Comment: The [place] Diabetes Association (ADA) provides guidance for cutoff values for fasting glucose and random glucose. The ADA defines fasting as no caloric intake for at least 8 hours. Fasting plasma glucose results between 100 to 125 mg/dL indicate increased risk for diabetes (prediabetes).Fasting plasma glucose results greater than or equal to 126 mg/dL meet the criteria for diagnosis of diabetes. In the absence of unequivocal hyperglycemia, results should be confirmed by repeat testing. In a patient with classic symptoms of hyperglycemia or hyperglycemic crisis, random plasma glucose results greater than or equal to 200 mg/dL meet the criteria for diagnosis of diabetes.Reference: Standards of Medical Care in Diabetes 2016, [place] [employer]. Diabetes Care. 2016.39(Suppl 1). Performed By: #### 3 016-3, 24445-7, 90425-1, 98664-5 ####[facility] LABCLIA [id number] [address] [address] [place] Potassium [Moles/Vol] 4.3 mmol/L Normal 3.7-5.1 [facility] Comment on above: Order Comment: Faithi men Type: BLOOD SPECIMENOrdering Facility: [facility] Address: [address] [place] [address] Performed By: #### 3 016-3, 38318-6, 69102-3, 61099-9 ####[facility] LABCLIA [id number] [address] [address] [place] Protein [Mass/Vol] 7.8 g/dL Normal 6.3-8.0 [facility] Comment on above: Order Comment: Speci men Type: BLOOD SPECIMENOrdering Facility: [facility] Address: [address] [place] [address] Performed By: #### 3 016-3, 69055-7, 78676-0, 56665-6 ####[facility] LABCLIA [id number] [place] [address] [place] Sodium [Moles/Vol] 141 mmol/L Normal 136-144 [facility] Comment on above: Order Comment: Speci men Type: BLOOD SPECIMENOrdering Facility: [facility] Address: [address] [place] [address] Performed By: #### 3 016-3, 44105-3, 93654-7, 61525-9 ####[facility] LABCLIA [id number] [place] [address] [place] Urea nitrogen [Mass/Vol] 35 mg/dL High 7-21 [facility] Comment on above: Order Comment: Speci men Type: BLOOD SPECIMENOrdering Facility: [facility] Address: [address] [place] [address] Performed By: #### 3 016-3, 61584-9, 41527-3, 47439-1 ####[facility] LABCLIA [id number] [place] [address] [place] HbA1c (Bld)on 02-27-2025 Average glucose Estimated from glycated hemoglobin (Bld) [Mass/Vol] 137 mg/dL Normal [facility] Comment on above: Order Comment: Speci men Type: BLOOD SPECIMENOrdering Facility: [facility] Address: [address] [place] [address] Result Comment: eAG: (Estimated average glucose) is a calculated value from HgbA1c and is operations support representative of the average blood glucose level in the last 2-3 month period. Performed By: #### 5 5454-3 ####[facility] LABCLIA [id number] [place] HbA1c (Bld) [Mass fraction] 6.4 % High 4.3-5.6 [facility] Comment on above: Order Comment: My alma delia Type: BLOOD SPECIMENOrdering Facility: [facility] Address: [address] [place] [address] Result Comment: [place] Diabetes Association guidelines indicate that patients with HgbA1c in the range 5.7-6.4% are at increased risk for development of diabetes, and intervention by lifestyle modification may be beneficial. HgbA1c greater or equal to 6.5% is considered diagnostic of diabetes. Performed By: #### 5 5454-3 ####[facility] LABCLIA [id number] [place] [address] [facility] Lipid 1996 panelon 5 Cholesterol [Mass/Vol] 129 mg/dL Normal <200 [facility] Comment on above: Order Comment: My alma delia Type: BLOOD SPECIMENOrdering Facility: [facility] Address: [id number] [place] [address] Result Comment: <200 mg/dL, Desirable 200-239 mg/dL, Borderline high>239 mg/dL, High Performed By: #### 3 016-3, 87179-8, 96919-3, 58517-3 ####[facility] LABCLIA [id number] [place] [id number] [place] [facility] Cholesterol in HDL [Mass/Vol] 69 mg/dL Normal >39 [facility] Comment on above: Order Comment: yM flannery Type: BLOOD SPECIMENOrdering Facility: [facility] Address: [address] [place] [address] Result Comment: 40-5 9 mg/dL, Acceptable>59 mg/dL, High: Negative risk factor for coronary heart disease<40 mg/dL, Low: Positive risk factor for coronary heart disease Performed By: #### 3 016-3, 82736-3, 62294-5, 74584-7 ####[facility] LABCLIA [id number] [place] [id number] [place] Cholesterol in LDL [Mass/Vol] 43 mg/dL Normal <100 [facility] Comment on above: Order Comment: Speci men Type: BLOOD SPECIMENOrdering Facility: [facility] Address: [address] [place] [address] Result Comment: <100 mg/dL, Optimal 100-129 mg/dL, Near optimal/above optimal 130-159 mg/dL, Borderline high 160-189 mg/dL, High>189 mg/dL, Very highSecondary prevention optimal LDL Cholesterol levels are recommended to be < 70 mg/dL Performed By: #### 3 016-3, 27727-3, 21650-4, 86043-7 ####[facility] LABCLIA [id number] [address] STATES OF [facility] Cholesterol in LDL/Cholesterol in HDL [Mass ratio] 0.62 {ratio} Normal <2.54 [facility] Comment on above: Order Comment: Speci men Type: BLOOD SPECIMENOrdering Facility: [facility] Address: [address] [place] [address] Result Comment: Refe rence:1. National Cholesterol Education Program ATP III Guideline At-A-Glance Quick Desk Reference: National Heart, Lung, and Blood Carbon. National Institutes of Health. 2001: NIH Publication No. 01-3305.2. An International Atherosclerosis Society position paper: global recommendations for the management of dyslipidemia: executive summary, Atherosclerosis. 2014: 232(2):410-413. Performed By: #### 3 016-3, 33860-5, 82484-3, 64343-7 ####[facility] LABCLIA [id number] [place] [id number] [place] Cholesterol in VLDL [Mass/Vol] 17 mg/dL Normal <30 [facility] Comment on above: Order Comment: Faithi men Type: BLOOD SPECIMENOrdering Facility: [facility] Address: [address] [place] [address] Performed By: #### 3 016-3, 38264-6, 98938-3, 04787-1 ####[facility] LABCLIA [id number] [address] [address] [place] Cholesterol non HDL [Mass/Vol] 60 mg/dL Normal <130 [facility] Comment on above: Order Comment: Speci men Type: BLOOD SPECIMENOrdering Facility: [facility] Address: [address] [place] [address] Result Comment: <130 mg/dL, Optimal 130-159 mg/dL, Near optimal/above optimal 160-189 mg/dL, Borderline high 190-219 mg/dL, High>219 mg/dL, Very highSecondary prevention optimal non HDL Cholesterol levels are recommended to be <100 mg/dL Performed By: #### 3 016-3, 69086-6, 34241-2, 36897-5 ####[facility] LABCLIA [id number] [place] [address] [place] Cholesterol.total/Choles terol in HDL [Mass ratio] 1.87 {ratio} Normal <5.10 [facility] Comment on above: Order Comment: Speci men Type: BLOOD SPECIMENOrdering Facility: [facility] Address: [address] [place] [address] Performed By: #### 3 016-3, 26166-5, 69839-5, 45359-1 ####[facility] LABCLIA [id number] [place] [id number] [place] FASTING TIME 12 hrs Normal [facility] Comment on above: Order Comment: Speci men Type: BLOOD SPECIMENOrdering Facility: [facility] Address: [address] [place] [address] Performed By: #### 3 016-3, 21868-0, 73097-1, 20291-6 ####[facility] LABCLIA [id number] [place] [id number] [place] Triglyceride [Mass/Vol] 83 mg/dL Normal <150 [facility] Comment on above: Order Comment: Speci men Type: BLOOD SPECIMENOrdering Facility: [facility] Address: [address] [place] [address] Result Comment: <150 mg/dL, Normal 150-199 mg/dL, Borderline high 200-499 mg/dL, High>499 mg/dL, Very high Performed By: #### 3 016-3, 95522-0, 04758-2, 36892-5 ####[facility] LABCLIA [id number] [place] [address] [place] Magnesium SerPl-mCncon 02-27 Magnesium [Mass/Vol] 2.0 mg/dL Normal 1.7-2.3 [facility] Comment on above: Order Comment: Speci men Type: BLOOD SPECIMENOrdering Facility: [facility] Address: [address] [place] [address] Performed By: #### 1 9123-9 ####[facility] LABCLIA [id number] [place] [address] [place] NT-proBNP SerPl-mCncon 02-27 Natriuretic peptide.B prohormone N-Terminal [Mass/Vol] 2576 pg/mL High <450 [facility] Comment on above: Order Comment: Speci men Type: BLOOD SPECIMENOrdering Facility: [facility] Address: [address] [place] [address] Performed By: #### 3 016-3, 42429-8, 88695-7, 98121-4 ####[facility] LABCLIA [id number] [place] [address] [place] TSH SerPl-aCncon 02-27-2025 TSH Qn 4.470 m[IU]/L High 0.270-4.20 0 [facility] Comment on above: Order Comment: Speci men Type: BLOOD SPECIMENOrdering Facility: [facility] Address: [address] [place] [address] Performed By: #### 3 016-3, 68247-9, 69095-3, 49740-2 ####[facility] LABCLIA [id number] [facility] [id number] [place] [address] [place] Chest PA and Lateralon 01-31 Chest PA and Lateral Normal [facility] 12 Lead EKG performed by [facility] on 01-23-2025 12 Lead EKG performed by [facility] Normal [facility] Anion gap in Serum or Plasma Ordered By: Magdi Thomas on 01-23-2025 Anion gap [Moles/Vol] 11 mmol/L 5-15 [facility] BUN/creatinine ratioOrdered By: Magdi Thomas on 01-23-2025 Urea nitrogen/Creatinine [Mass ratio] 25.4 mg/mg High 10- [facility] Basic Metabolic Profile (BMP )on 01-23-2025 BUN/CRE 25.4 RATIO High - [facility] Comment on above: Performed By: #### L 300.3900, L500.2500 ####[facility] [address] [place], [address] Calcium [Mass/Vol] 10.2 mg/dL Normal 7.6-11.0 [facility] Comment on above: Performed By: #### L 300.3900, L500.2500 ####[facility] [address] [place], [address] Chloride [Moles/Vol] 101 mmol/L Normal 98-108 [facility] Comment on above: Performed By: #### L 300.3900, L500.2500 ####[facility] [address] [place], [address] CO2 [Moles/Vol] 29.7 mmol/L Normal 21.0-32.0 [facility] Comment on above: Performed By: #### L 300.3900, L500.2500 ####[facility] [address] [place], [address] Creatinine [Mass/Vol] 1.27 mg/dL High 0.70-1.20 [facility] Comment on above: Performed By: #### L 300.3900, L500.2500 ####[facility] [address] [place], [address] GAP 11 Normal 5-15 [facility] Comment on above: Performed By: #### L 300.3900, L500.2500 ####[facility] [address] [place], [address] GFR/1.73 sq M.predicted among non-blacks MDRD (S/P/Bld) [Vol rate/Area] 41 mL/min/{1.73_m2} Low >60 [facility] Comment on above: Result Comment: mL/m in/1.73m2 CKD-EPI Creatinine Equation (2020) Performed By: #### L 300.3900, L500.2500 ####[facility] [address] [place], [address] Glucose [Mass/Vol] 138 mg/dL High 70-99 [facility] Comment on above: Performed By: #### L 300.3900, L500.2500 ####[facility] [address] [place], [address] Potassium [Moles/Vol] 4.4 mmol/L Normal 3.3-5.1 [facility] Comment on above: Performed By: #### L 300.3900, L500.2500 ####[facility] [address] [place], [address] Sodium [Moles/Vol] 142 mmol/L Normal 133-145 [facility] Comment on above: Performed By: #### L 300.3900, L500.2500 ####[facility] [address] [place], [address] Urea nitrogen [Mass/Vol] 32 mg/dL High 4-19 [facility] Comment on above: Performed By: #### L 300.3900, L500.2500 ####[facility] [address] [place], [address] Carbon dioxide, total [Moles /volume] in Central venous bloodOrdered By: Magdi Thomas on 01-23-2025 CO2 [Moles/Vol] 29.7 mmol/L 21.0-32.0 [facility] Cardiology Visit Reporton Cardiology Visit Report Normal [facility] Chloride assayOrdered By: Ernestine Thomas on 01-23-2025 Chloride [Moles/Vol] 101 mmol/L 98-108 [facility] GFR/1.73 sq M.predicted tan g non-blacks MDRD (S/P/Bld) [Vol rate/Area]Ordered By: Magdi Thomas on 01-23-2025 Estimated GFR (MDRD) Non-Af Amer 41 Low >60 [facility] Comment on above: mL/min/1.73m2 CKD-EP I Creatinine Equation (2020) Glomerular filtration rate ( GFR) estimation/1.73 sq m using serum, plasma, or whole bOrdered By: Magdi Thomas on 01-23-2025 GFR/1.73 sq M.predicted among non-blacks MDRD (S/P/Bld) [Vol rate/Area] 41 mL/min/{1.73_m2} Low >60 [facility] Comment on above: mL/min/1.73m2 CKD-EP I Creatinine Equation (2020) International normalized rat io (INR) calculationOrdered By: Magdi Thomas on 01-23-2025 INR Coag (Bld) [Relative time] 1.7 {INR} [facility] Potassium (Unsp spec) [Mass/ Vol]Ordered By: Magdi Thomas on 01-23-2025 Potassium [Moles/Vol] 4.4 mmol/L 3.3-5.1 [facility] Potassium measurement (mass/ volume)Ordered By: Magdi Thomas on 01-23-2025 Potassium (Unsp spec) [Mass/Vol] 4.4 mmol/L 3.3-5.1 [facility] Prothrombin Time w/INRon INR Coag (PPP) [Relative time] 1.7 {INR} Normal [facility] Comment on above: Performed By: #### L 300.3900, L500.2500 ####[facility] [address] [place], [address] PT Coag (PPP) [Time] 20.7 s High 11.7-14.9 [facility] Comment on above: Performed By: #### L 300.3900, L500.2500 ####[facility] [address] [place], [address] Prothrombin timeOrdered By: Magdi Thomas on 01-23-2025 PT Coag (PPP) [Time] 20.7 s High 11.7-14.9 [facility] Serum creatinine measurement (mass/volume)Ordered By: Magdi Thomas on 01-23-2025 Creatinine [Mass/Vol] 1.27 mg/dL High 0.70-1.20 [facility] Serum glucose measurement (m ass/volume)Ordered By: Magdimarian Thomas on 01-23-2025 Glucose [Mass/Vol] 138 mg/dL High 70-99 [facility] Serum or plasma calcium allan urement (mass/volume)Ordered By: Magdimarian Thomas on 01-23-2025 Calcium [Mass/Vol] 10.2 mg/dL 7.6-11.0 [facility] Serum or plasma urea nitroge n measurement (mass/volume)Ordered By: Magdi Thomas on 01-23-2025 Urea nitrogen [Mass/Vol] 32 mg/dL High 4-19 [facility] Sodium levelOrdered By: Eve Thomas on 01-23-2025 Sodium [Moles/Vol] 142 mmol/L 133-145 [facility] CNOVon 01-22-2025 CNOV Normal [facility] Culture, Anaerobic Any Sourc deangelo 01-15-2025 CUAN No growth in 5 days. Normal [facility] Comment on above: Performed By: #### L 350.1000, M100.2000, M100.2900, L200.0200, M100.4001 ####[facility] [address] [place], [address] Body Fluid Culton 01-13-2025 BFC No growth aerobically. Normal [facility] Comment on above: Performed By: #### L 350.1000, M100.2000, M100.2900, L200.0200, M100.4001 ####[facility] [address] [place], [address] Basic Metabolic Profile (BMP )on 01-12-2025 BUN Normal 7-18 [facility] Comment on above: Result Comment: Canc elled via OM: Order cancelled - Patient discharged Performed By: #### L 500.2500, L100.0100 ####[facility] [address] [place], [address] BUN/CRE Normal 10-20 [facility] Comment on above: Result Comment: Canc elled via OM: Order cancelled - Patient discharged Performed By: #### L 500.2500, L100.0100 ####[facility] [address] [place], [address] CA,Total Normal 8.5-10.1 [facility] Comment on above: Result Comment: Canc elled via OM: Order cancelled - Patient discharged Performed By: #### L 500.2500, L100.0100 ####[facility] [address] [place], [address] CL Normal 98-107 [facility] Comment on above: Result Comment: Canc elled via OM: Order cancelled - Patient discharged Performed By: #### L 500.2500, L100.0100 ####[facility] [address] [place], [address] CO2 Normal 21.0-32.0 [facility] Comment on above: Result Comment: Canc elled via OM: Order cancelled - Patient discharged Performed By: #### L 500.2500, L100.0100 ####[facility] [address] [place], [address] CREAT,SERUM Normal 0.55-1.02 [facility] Comment on above: Result Comment: Canc elled via OM: Order cancelled - Patient discharged Performed By: #### L 500.2500, L100.0100 ####[facility] [address] [place], [address] EST GFR Normal >60 [facility] Comment on above: Result Comment: Canc elled via OM: Order cancelled - Patient discharged Performed By: #### L 500.2500, L100.0100 ####[facility] [address] [place], [address] EST GFR - AA Normal >60 [facility] Comment on above: Result Comment: Canc elled via OM: Order cancelled - Patient discharged Performed By: #### L 500.2500, L100.0100 ####[facility] [address] [place], [address] GAP Normal 5-15 [facility] Comment on above: Result Comment: Canc elled via OM: Order cancelled - Patient discharged Performed By: #### L 500.2500, L100.0100 ####[facility] [address] [place], [address] GLU Normal 74-106 [facility] Comment on above: Result Comment: Canc elled via OM: Order cancelled - Patient discharged Performed By: #### L 500.2500, L100.0100 ####[facility] [address] [place], [address] Potassium Normal 3.5-5.1 [facility] Comment on above: Result Comment: Canc elled via OM: Order cancelled - Patient discharged Performed By: #### L 500.2500, L100.0100 ####[facility] [address] [place], [address] Basic Metabolic Profile (BMP) Normal 136-145 [facility] Comment on above: Result Comment: Canc elled via OM: Order cancelled - Patient discharged Performed By: #### L 500.2500, L100.0100 ####[facility] [address] [place], [address] CBC W/Diff, Automatedon 02-2 Absolute Neut Normal 2.0-7.7 [facility] Comment on above: Result Comment: Canc elled via OM: Order cancelled - Patient discharged Performed By: #### L 500.2500, L100.0100 ####[facility] [address] [place], [address] HCT Normal 37-47 [facility] Comment on above: Result Comment: Canc elled via OM: Order cancelled - Patient discharged Performed By: #### L 500.2500, L100.0100 ####[facility] [address] [place], [address] HGB Normal 12.0-15.0 [facility] Comment on above: Result Comment: Canc elled via OM: Order cancelled - Patient discharged Performed By: #### L 500.2500, L100.0100 ####[facility] [address] [place], [address] MCH Normal 27.0-32.0 [facility] Comment on above: Result Comment: Canc elled via OM: Order cancelled - Patient discharged Performed By: #### L 500.2500, L100.0100 ####[facility] [address] [place], [address] MCHC Normal 32-36 [facility] Comment on above: Result Comment: Canc elled via OM: Order cancelled - Patient discharged Performed By: #### L 500.2500, L100.0100 ####[facility] [address] [place], [address] MCV Normal 81-99 [facility] Comment on above: Result Comment: Canc elled via OM: Order cancelled - Patient discharged Performed By: #### L 500.2500, L100.0100 ####[facility] [address] [place], [address] NEUT% Normal 47-70 [facility] Comment on above: Result Comment: Canc elled via OM: Order cancelled - Patient discharged Performed By: #### L 500.2500, L100.0100 ####[facility] [address] [place], [address] PLT Normal 150-450 [facility] Comment on above: Result Comment: Canc elled via OM: Order cancelled - Patient discharged Performed By: #### L 500.2500, L100.0100 ####[facility] [address] [place], [address] RBC Normal 4.2-5.4 [facility] Comment on above: Result Comment: Canc elled via OM: Order cancelled - Patient discharged Performed By: #### L 500.2500, L100.0100 ####[facility] [address] [place], [address] RDW CV Normal 11.6-14.6 [facility] Comment on above: Result Comment: Canc elled via OM: Order cancelled - Patient discharged Performed By: #### L 500.2500, L100.0100 ####[facility] [address] [place], [address] RDW SD Normal 35.1-43.9 [facility] Comment on above: Result Comment: Canc elled via OM: Order cancelled - Patient discharged Performed By: #### L 500.2500, L100.0100 ####[facility] [address] [place], [address] WBC Normal 4.4-11.0 [facility] Comment on above: Result Comment: Canc elled via OM: Order cancelled - Patient discharged Performed By: #### L 500.2500, L100.0100 ####[facility] [address] [place], [address] Absolute lymphocyte countOrd ered By: Supa Brumfield on 01-11-2025 Lymphocytes Auto (Unsp spec) [#/Vol] 1.17 10*3/uL 0.83-4.51 [facility] Absolute neutrophil countOrd ered By: Supa Brumfield on 01-11-2025 Neutrophils (Bld) [#/Vol] 4.1 10*3/uL 2.0-7.7 [facility] Automated lymphocyte count a s percentage of total leukocytesOrdered By: Supa Brumfield on 01-11-2025 Lymphocytes/100 WBC Auto (Unsp spec) 18.7 % Low 19-41 [facility] Basic Metabolic Profile (BMP )on 01-11-2025 BUN/CRE 35.0 RATIO High 10-20 [facility] Comment on above: Performed By: #### L 100.0100, L500.2500 ####[facility] [address] [place], [address] CA,Total 9.1 mg/dL Normal 8.5-10.1 [facility] Comment on above: Performed By: #### L 100.0100, L500.2500 ####[facility] [address] [place], [address] Chloride [Moles/Vol] 104 mmol/L Normal 98-107 [facility] Comment on above: Performed By: #### L 100.0100, L500.2500 ####[facility] [address] [place], [address] CO2 [Moles/Vol] 29.0 mmol/L Normal 21.0-32.0 [facility] Comment on above: Performed By: #### L 100.0100, L500.2500 ####[facility] [address] [place], [address] Creatinine [Mass/Vol] 1.17 mg/dL High 0.55-1.02 [facility] Comment on above: Result Comment: The validity of the calculated GFR GFRAA in patients over70 years has not been determined. Clinical correlation isessential. Performed By: #### L 100.0100, L500.2500 ####[facility] [address] [place], [address] ECRCL 36.83 ml/min Normal [facility] Comment on above: Performed By: #### L 100.0100, L500.2500 ####[facility] [address] [place], [address] EST GFR - AA 57 mL/min Low >60 [facility] Comment on above: Result Comment: Afri can [place] GFR Calc Performed By: #### L 100.0100, L500.2500 ####[facility] [address] [place], [address] GAP 7 Normal 5-15 [facility] Comment on above: Performed By: #### L 100.0100, L500.2500 ####[facility] [address] [place], [address] GFR/1.73 sq M.predicted among non-blacks MDRD (S/P/Bld) [Vol rate/Area] 47 mL/min/{1.73_m2} Low >60 [facility] Comment on above: Result Comment: Non- GFR Calc Performed By: #### L 100.0100, L500.2500 ####[facility] [address] [place], [address] Glucose [Mass/Vol] 122 mg/dL High 74-106 [facility] Comment on above: Result Comment: Fast ing Glucose result from 100 to 125 mg/dLsuggests IMPAIRED HOMEOSTASIS per A.D.A. criteria. Performed By: #### L 100.0100, L500.2500 ####[facility] [address] [place], [address] Potassium [Moles/Vol] 3.6 mmol/L Normal 3.5-5.1 [facility] Comment on above: Performed By: #### L 100.0100, L500.2500 ####[facility] [address] [place], [address] Sodium [Moles/Vol] 140 mmol/L Normal 136-145 [facility] Comment on above: Performed By: #### L 100.0100, L500.2500 ####[facility] [address] [place], [address] Urea nitrogen [Mass/Vol] 41 mg/dL High 06-07 [facility] Comment on above: Performed By: #### L 100.0100, L500.2500 ####[facility] [address] [place], [address] Basophil percentageOrdered B y: Supa Brumfield on 01-11-2025 Basophils/100 WBC (Bld) 1.1 % High 0-1 [facility] Blood urea nitrogen (BUN)/cr eatinine ratioOrdered By: Supa Brumfield on 01-11-2025 Urea nitrogen/Creatinine [Mass ratio] 35.0 mg/mg High - [facility] CBC W/Diff, Automatedon 12-23 Absolute Lymph 1.17 X10 3/uL Normal 0.83-4.51 [facility] Comment on above: Performed By: #### L 100.0100, L500.2500 ####[facility] [address] [place], [address] Absolute Neut 4.1 X10 3/uL Normal 2.0-7.7 [facility] Comment on above: Performed By: #### L 100.0100, L500.2500 ####[facility] [address] [place], [address] Basophils/100 WBC (Bld) 1.1 % High 0-1 [facility] Comment on above: Performed By: #### L 100.0100, L500.2500 ####[facility] [address] [place], [address] Eosinophils/100 WBC (Bld) 5.7 % High 0-5 [facility] Comment on above: Performed By: #### L 100.0100, L500.2500 ####[facility] [address] [place], [address] Erythrocyte distribution width (RBC) [Ratio] 15.9 % High 11.6-14.6 [facility] Comment on above: Performed By: #### L 100.0100, L500.2500 ####[facility] [address] [place], [address] Hematocrit (Bld) [Volume fraction] 37.4 % Normal 37-47 [facility] Comment on above: Performed By: #### L 100.0100, L500.2500 ####[facility] [address] [place], [address] Hemoglobin (Bld) [Mass/Vol] 11.6 g/dL Low 12.0-15.0 [facility] Comment on above: Performed By: #### L 100.0100, L500.2500 ####[facility] [address] [place], [address] IG% 0.300 Normal 0.0-0.9 [facility] Comment on above: Result Comment: IG% - Immature Granulocytes (promyelocytes, myelocytes andmetamyelocytes) > 1% indicates that a LEFT SHIFT is Present. Performed By: #### L 100.0100, L500.2500 ####[facility] [address] [place], [address] Lymphocytes/100 WBC (Bld) 18.7 % Low 19-41 [facility] Comment on above: Performed By: #### L 100.0100, L500.2500 ####[facility] [address] [place], [address] MCH (RBC) [Entitic mass] 28.2 pg Normal 27.0-32.0 [facility] Comment on above: Performed By: #### L 100.0100, L500.2500 ####[facility] [address] [place], [address] MCHC (RBC) [Mass/Vol] 31.0 g/dL Low 32-36 [facility] Comment on above: Performed By: #### L 100.0100, L500.2500 ####[facility] [address] [place], [address] MCV (RBC) [Entitic vol] 91.0 fL Normal 81-99 [facility] Comment on above: Performed By: #### L 100.0100, L500.2500 ####[facility] [address] [place], [address] Monocytes/100 WBC (Bld) 9.1 % Normal 0-10 [facility] Comment on above: Performed By: #### L 100.0100, L500.2500 ####[facility] [address] [place], [address] Neutrophils/100 WBC (Bld) 65.1 % Normal 47-70 [facility] Comment on above: Performed By: #### L 100.0100, L500.2500 ####[facility] [address] [place], [address] Nucleated RBC (Bld) [#/Vol] 0 10*3/uL Normal 0-5 [facility] Comment on above: Performed By: #### L 100.0100, L500.2500 ####[facility] [address] [place], [address] Platelet mean volume (Bld) [Entitic vol] 10.6 fL Normal 6.2-12.0 [facility] Comment on above: Performed By: #### L 100.0100, L500.2500 ####[facility] [address] [place], [address] Platelets (Bld) [#/Vol] 251 10*3/uL Normal 150-450 [facility] Comment on above: Performed By: #### L 100.0100, L500.2500 ####[facility] [address] [place], [address] RBC (Bld) [#/Vol] 4.11 10*6/uL Low 4.2-5.4 [facility] Comment on above: Performed By: #### L 100.0100, L500.2500 ####[facility] [address] [place], [address] RDW SD 52.4 fl High 35.1-43.9 [facility] Comment on above: Performed By: #### L 100.0100, L500.2500 ####[facility] [address] [place], [address] WBC (Bld) [#/Vol] 6.3 10*3/uL Normal 4.4-11.0 [facility] Comment on above: Performed By: #### L 100.0100, L500.2500 ####[facility] [address] [place], [address] Carbon dioxide measurementOr dered By: Supa Brumfield on 01-11-2025 CO2 [Moles/Vol] 29.0 mmol/L 21.0-32.0 [facility] Chloride measurementOrdered By: Supa Brumfield on 01-11-2025 Chloride [Moles/Vol] 104 mmol/L 98-107 [facility] Discharge Instructionon 12-23 Discharge Instruction Normal [facility] Eosinophil percentageOrdered By: Supa Brumfield on 01-11-2025 Eosinophils/100 WBC (Bld) 5.7 % High 0-5 [facility] Erythrocyte distribution wid th ratioOrdered By: Supa Brumfield on 01-11-2025 Erythrocyte distribution width (RBC) [Ratio] 15.9 % High 11.6-14.6 [facility] Erythrocyte distribution wid th standard deviationOrdered By: Supa Brumfield on 01-11-2025 Erythrocyte distribution width (RBC) [Entitic vol] 52.4 fL High 35.1-43.9 [facility] Erythrocyte distribution width (RBC) [Ratio] 52.4 fl High 35.1-43.9 [facility] Estimated glomerular filtrat ion rate (GFR) AmericanOrdered By: Supa Brumfield on 01-11-2025 Estimated GFR (MDRD) Amer 57 mL/min Low >60 [facility] Comment on above: GFR Calc Estimation of creatinine yuliya aranceOrdered By: Supa Brumfield on 01-11-2025 Estimated Creatinine Clearance Calc 36.83 ml/min [facility] Glomerular filtration rate ( GFR) estimationOrdered By: Supa Brumfield on 01-11-2025 Estimated GFR (MDRD) Non-Af Amer 47 mL/min Low >60 [facility] Comment on above: Non- GFR Calc GFR/1.73 sq M.predicted among non-blacks MDRD (S/P/Bld) [Vol rate/Area] 47 mL/min/{1.73_m2} Low >60 [facility] Comment on above: Non- GFR Calc Glucose measurementOrdered B y: Supa Brumfield on 01-11-2025 Glucose [Mass/Vol] 122 mg/dL High 74-106 [facility] Comment on above: Fasting Glucose resu lt from 100 to 125 mg/dL suggests IMPAIRED HOMEOSTASIS per A.D.A. criteria. Hematocrit Auto (Bld) [Volum e fraction]Ordered By: Supa Brumfield on 01-11-2025 Hematocrit (Bld) [Volume fraction] 37.4 % 37-47 [facility] Hemoglobin measurementOrdere d By: Supa Brumfield on 01-11-2025 Hemoglobin (Bld) [Mass/Vol] 11.6 g/dL Low 12.0-15.0 [facility] Immature granulocytes/100 WB C Auto (Bld)Ordered By: Supa Brumfield on 01-11-2025 Immature granulocytes/100 WBC (Bld) 0.300 % 0.0-0.9 [facility] Comment on above: IG% - Immature Granu locytes (promyelocytes, myelocytes and metamyelocytes) > 1% indicates that a LEFT SHIFT is Present. Lymphocytes Auto (Unsp spec) [#/Vol]Ordered By: Supa Brumfield on 01-11-2025 Lymphocytes (Bld) [#/Vol] 1.17 10*3/uL 0.83-4.51 [facility] Lymphocytes/100 WBC Auto (Un sp spec)Ordered By: Supa Brumfield on 01-11-2025 Lymphocytes/100 WBC (Bld) 18.7 % Low 19-41 [facility] MCV (mean corpuscular volume ) determinationOrdered By: Supa Brumfield on 01-11-2025 MCV (RBC) [Entitic vol] 91.0 fL 81-99 [facility] Mean corpuscular hemoglobin (MCH) determinationOrdered By: Supa Brumfield on 01-11-2025 MCH (RBC) [Entitic mass] 28.2 pg 27.0-32.0 [facility] Mean corpuscular hemoglobin concentration (MCHC) determinationOrdered By: Supa Brumfield on 01-11-2025 MCHC (RBC) [Mass/Vol] 31.0 g/dL Low 32-36 [facility] Mean platelet volume determi nationOrdered By: Supa Brumfield on 01-11-2025 Platelet mean volume (Bld) [Entitic vol] 10.6 fL 6.2-12.0 [facility] Monocyte percentageOrdered B y: Supa Brumfield on 01-11-2025 Monocytes/100 WBC (Bld) 9.1 % 0-10 [facility] Neutrophil percentageOrdered By: Supa Brumfield on 01-11-2025 Neutrophils/100 WBC (Bld) 65.1 % 47-70 [facility] Nucleated red blood cell per centageOrdered By: Supa Brumfield on 01-11-2025 Nucleated RBC/100 WBC (Bld) [Ratio] 0 % 0-5 [facility] Platelet countOrdered By: Fanny Brumfield on 01-11-2025 Platelets (Bld) [#/Vol] 251 10*3/uL 150-450 [facility] Potassium measurementOrdered By: Supa Brumfield on 01-11-2025 Potassium [Moles/Vol] 3.6 mmol/L 3.5-5.1 [facility] RBC Auto (Bld) [#/Vol]Ordere d By: Supa Brumfield on 01-11-2025 RBC (Bld) [#/Vol] 4.11 10*6/uL Low 4.2-5.4 [facility] Serum anion gap measurementO rdered By: Supa Brumfield on 01-11-2025 Anion gap [Moles/Vol] 7 mmol/L 5-15 [facility] Serum or plasma calcium allan urement (mass/volume)Ordered By: Supa Brumfield on 01-11-2025 Calcium [Mass/Vol] 9.1 mg/dL 8.5-10.1 [facility] Serum or plasma creatinine m easurement (mass/volume)Ordered By: Supa Brumfield on 01-11-2025 Creatinine [Mass/Vol] 1.17 mg/dL High 0.55-1.02 [facility] Comment on above: The validity of the calculated GFR & GFRAA in patients over 70 years has not been determined. Clinical correlation is essential. Serum or plasma urea nitroge n measurement (mass/volume)Ordered By: Supa Brumfield on 01-11-2025 Urea nitrogen [Mass/Vol] 41 mg/dL High 7-18 [facility] Sodium levelOrdered By: Melissa Brumfield on 01-11-2025 Sodium [Moles/Vol] 140 mmol/L 136-145 [facility] White blood cell (WBC) count Ordered By: Supa Brumfield on 01-11-2025 WBC (Bld) [#/Vol] 6.3 10*3/uL 4.4-11.0 [facility] Abdomen Limitedon 01-10-2025 Abdomen Limited Normal [facility] Basic Metabolic Profile (BMP )on 01-10-2025 BUN/CRE 34.6 RATIO High 10-20 [facility] Comment on above: Performed By: #### L 501.5200, L500.3400, L100.0100, L500.2500, L501.2300 ####[facility] [address] [place], [address] CA,Total 9.4 mg/dL Normal 8.5-10.1 [facility] Comment on above: Performed By: #### L 501.5200, L500.3400, L100.0100, L500.2500, L501.2300 ####[facility] [address] [place], [address] Chloride [Moles/Vol] 107 mmol/L Normal 98-107 [facility] Comment on above: Performed By: #### L 501.5200, L500.3400, L100.0100, L500.2500, L501.2300 ####[facility] [address] [place], [address] CO2 [Moles/Vol] 25.0 mmol/L Normal 21.0-32.0 [facility] Comment on above: Performed By: #### L 501.5200, L500.3400, L100.0100, L500.2500, L501.2300 ####[facility] [address] [place], [address] Creatinine [Mass/Vol] 1.07 mg/dL High 0.55-1.02 [facility] Comment on above: Result Comment: The validity of the calculated GFR GFRAA in patients over70 years has not been determined. Clinical correlation isessential. Performed By: #### L 501.5200, L500.3400, L100.0100, L500.2500, L501.2300 ####[facility] [address] [place], [address] ECRCL 40.80 ml/min Normal [facility] Comment on above: Performed By: #### L 501.5200, L500.3400, L100.0100, L500.2500, L501.2300 ####[facility] [address] [place], [address] EST GFR - AA 63 mL/min Normal >60 [facility] Comment on above: Result Comment: Afri can Bruneian GFR Calc Performed By: #### L 501.5200, L500.3400, L100.0100, L500.2500, L501.2300 ####[facility] [address] [place], [address] GAP 7 Normal 5-15 [facility] Comment on above: Performed By: #### L 501.5200, L500.3400, L100.0100, L500.2500, L501.2300 ####[facility] [address] [place], [address] GFR/1.73 sq M.predicted among non-blacks MDRD (S/P/Bld) [Vol rate/Area] 52 mL/min/{1.73_m2} Low >60 [facility] Comment on above: Result Comment: Non- GFR Calc Performed By: #### L 501.5200, L500.3400, L100.0100, L500.2500, L501.2300 ####[facility] [address] [place], [address] Glucose [Mass/Vol] 173 mg/dL High 74-106 [facility] Comment on above: Result Comment: Fast ing Glucose result greater than or equal to 126 mg/dLsuggests DIABETES MELLITUS per A.D.A. criteria. Performed By: #### L 501.5200, L500.3400, L100.0100, L500.2500, L501.2300 ####[facility] [address] [place], [address] Potassium [Moles/Vol] 3.9 mmol/L Normal 3.5-5.1 [facility] Comment on above: Performed By: #### L 501.5200, L500.3400, L100.0100, L500.2500, L501.2300 ####[facility] [address] [place], [address] Sodium [Moles/Vol] 139 mmol/L Normal 136-145 [facility] Comment on above: Performed By: #### L 501.5200, L500.3400, L100.0100, L500.2500, L501.2300 ####[facility] [address] [place], [address] Urea nitrogen [Mass/Vol] 37 mg/dL High 7-18 [facility] Comment on above: Performed By: #### L 501.5200, L500.3400, L100.0100, L500.2500, L501.2300 ####[facility] [address] [place], [address] Bilirubin directOrdered By: Supa Brumfield on 01-10-2025 Bilirubin.direct [Mass/Vol] 0.23 mg/dL Normal 0.00-0.30 [facility] Comment on above: Performed By: #### L 501.5200, L500.3400, L100.0100, L500.2500, L501.2300 ####[facility] [address] [place], [address] Bilirubin, totalOrdered By: Supa Brumfield on 01-10-2025 Bilirubin [Mass/Vol] 0.60 mg/dL Normal 0.20-1.00 [facility] Comment on above: For patients on eltr ombopag therapy, use of Dimension Lamona TBIL is not recommended. Result Comment: For patients on eltrombopag therapy, use of Dimension Lamona TBIL is not recommended. Performed By: #### L 501.5200, L500.3400, L100.0100, L500.2500, L501.2300 ####[facility] [address] [place], [address] Body Fluid Cell Count+Diffon 01-10-2025 PATH COMM/BF Reviewed Normal [facility] Comment on above: Order Comment: The r eference interval(s) and other method performancespecifications are unavailable for this body fluid.Comparison of the result with concentration in the blood,serum, or plasma is recommended. Result Comment: Nega tive for malignant cells.PLEASE ALSO REFER TO CYTOLOGY REPORT [id number] Luna M.D. 01/10/25 AMENDED REPORT 01/10/25 1421 PATH COMM/BF previously reported as: May follow Performed By: #### L 350.1000, M100.2000, M100.2900, L200.0200, M100.4001 ####[facility] [address] [place], [address] CBC W/Diff, Automatedon 12-23 0-2024 Absolute Lymph 0.82 X10 3/uL Low 0.83-4.51 [facility] Comment on above: Performed By: #### L 501.5200, L500.3400, L100.0100, L500.2500, L501.2300 ####[facility] [address] [place], [address] Absolute Neut 5.4 X10 3/uL Normal 2.0-7.7 [facility] Comment on above: Performed By: #### L 501.5200, L500.3400, L100.0100, L500.2500, L501.2300 ####[facility] [address] [place], [address] Basophils/100 WBC (Bld) 1.0 % Normal 0-1 [facility] Comment on above: Performed By: #### L 501.5200, L500.3400, L100.0100, L500.2500, L501.2300 ####[facility] [address] [place], [address] Eosinophils/100 WBC (Bld) 4.4 % Normal 0-5 [facility] Comment on above: Performed By: #### L 501.5200, L500.3400, L100.0100, L500.2500, L501.2300 ####[facility] [address] [place], [address] Erythrocyte distribution width (RBC) [Ratio] 15.9 % High 11.6-14.6 [facility] Comment on above: Performed By: #### L 501.5200, L500.3400, L100.0100, L500.2500, L501.2300 ####[facility] [address] [place], [address] Hematocrit (Bld) [Volume fraction] 38.5 % Normal 37-47 [facility] Comment on above: Performed By: #### L 501.5200, L500.3400, L100.0100, L500.2500, L501.2300 ####[facility] [address] [place], [address] Hemoglobin (Bld) [Mass/Vol] 11.9 g/dL Low 12.0-15.0 [facility] Comment on above: Performed By: #### L 501.5200, L500.3400, L100.0100, L500.2500, L501.2300 ####[facility] [address] [place], [address] IG% 0.100 Normal 0.0-0.9 [facility] Comment on above: Result Comment: IG% - Immature Granulocytes (promyelocytes, myelocytes andmetamyelocytes) > 1% indicates that a LEFT SHIFT is Present. Performed By: #### L 501.5200, L500.3400, L100.0100, L500.2500, L501.2300 ####[facility] [address] [place], [address] Lymphocytes/100 WBC (Bld) 11.6 % Low 19-41 [facility] Comment on above: Performed By: #### L 501.5200, L500.3400, L100.0100, L500.2500, L501.2300 ####[facility] [address] [place], [address] MCH (RBC) [Entitic mass] 28.0 pg Normal 27.0-32.0 [facility] Comment on above: Performed By: #### L 501.5200, L500.3400, L100.0100, L500.2500, L501.2300 ####[facility] [address] [place], [address] MCHC (RBC) [Mass/Vol] 30.9 g/dL Low 32-36 [facility] Comment on above: Performed By: #### L 501.5200, L500.3400, L100.0100, L500.2500, L501.2300 ####[facility] [address] [place], [address] MCV (RBC) [Entitic vol] 90.6 fL Normal 81-99 [facility] Comment on above: Performed By: #### L 501.5200, L500.3400, L100.0100, L500.2500, L501.2300 ####[facility] [address] [place], [address] Monocytes/100 WBC (Bld) 6.1 % Normal 0-10 [facility] Comment on above: Performed By: #### L 501.5200, L500.3400, L100.0100, L500.2500, L501.2300 ####[facility] [address] [place], [address] Neutrophils/100 WBC (Bld) 76.8 % High 47-70 [facility] Comment on above: Performed By: #### L 501.5200, L500.3400, L100.0100, L500.2500, L501.2300 ####[facility] [address] [place], [address] Nucleated RBC (Bld) [#/Vol] 0 10*3/uL Normal 0-5 [facility] Comment on above: Performed By: #### L 501.5200, L500.3400, L100.0100, L500.2500, L501.2300 ####[facility] [address] [place], [address] Platelet mean volume (Bld) [Entitic vol] 10.5 fL Normal 6.2-12.0 [facility] Comment on above: Performed By: #### L 501.5200, L500.3400, L100.0100, L500.2500, L501.2300 ####[facility] [address] [place], [address] Platelets (Bld) [#/Vol] 262 10*3/uL Normal 150-450 [facility] Comment on above: Performed By: #### L 501.5200, L500.3400, L100.0100, L500.2500, L501.2300 ####[facility] [address] [place], [address] RBC (Bld) [#/Vol] 4.25 10*6/uL Normal 4.2-5.4 [facility] Comment on above: Performed By: #### L 501.5200, L500.3400, L100.0100, L500.2500, L501.2300 ####[facility] [address] [place], [address] RDW SD 52.4 fl High 35.1-43.9 [facility] Comment on above: Performed By: #### L 501.5200, L500.3400, L100.0100, L500.2500, L501.2300 ####[facility] [address] [place], [address] WBC (Bld) [#/Vol] 7.1 10*3/uL Normal 4.4-11.0 [facility] Comment on above: Performed By: #### L 501.5200, L500.3400, L100.0100, L500.2500, L501.2300 ####[facility] [address] [place], [address] CNPTOUTREACHon 01-10-2025 CNPTOUTREACH Normal [facility] Gram Stainon 01-10-2025 GS Centrifuged Specimen ? Culture performed on centrifuged specimen Gram Stain Rare Red Blood Cells No organisms seen Normal [facility] Comment on above: Performed By: #### L 350.1000, M100.2000, M100.2900, L200.0200, M100.4001 ####[facility] [address] [place], [address] Liver Profileon 01-10-2025 ALK P 71 U/L Normal 45-117 [facility] Comment on above: Performed By: #### L 501.5200, L500.3400, L100.0100, L500.2500, L501.2300 ####[facility] [address] [place], [address] T PROT 7.0 g/dL Normal 6.4-8.2 [facility] Comment on above: Performed By: #### L 501.5200, L500.3400, L100.0100, L500.2500, L501.2300 ####[facility] [address] [place], [address] Liver ProfileOrdered By: Belinda Brumfield on 01-10-2025 AST [Catalytic activity/Vol] 19 U/L Normal 15-37 [facility] Comment on above: Performed By: #### L 501.5200, L500.3400, L100.0100, L500.2500, L501.2300 ####[facility] [address] [place], [address] Magnesium measurementOrdered By: Supa Brumfield on 01-10-2025 Magnesium [Mass/Vol] 1.9 mg/dL Normal 1.6-2.6 [facility] Comment on above: Performed By: #### L 501.5200, L500.3400, L100.0100, L500.2500, L501.2300 ####[facility] [address] [place], [place], [id number] No Panel InformationOrdered By: Supa Brumfield on 01-10-2025 19 U/L 15-37 [facility] Phosphoruson 01-10-2025 Phosphate [Mass/Vol] 3.7 mg/dL Normal 2.5-4.9 [facility] Comment on above: Performed By: #### L 501.5200, L500.3400, L100.0100, L500.2500, L501.2300 ####[facility] [address] [place], [place], [id number] Phosphorus measurementOrdere d By: Supa Brumfield on 01-10-2025 Phosphorus Level 3.7 mg/dL 2.5-4.9 [facility] Serum globulin measurementOr dered By: Supa Brumfield on 01-10-2025 Globulin (S) [Mass/Vol] 4.1 g/dL Normal 2.2-4.2 [facility] Comment on above: Performed By: #### L 501.5200, L500.3400, L100.0100, L500.2500, L501.2300 ####[facility] [address] [place], [place], [id number] Serum or plasma alanine albert otransferase (ALT) measurementOrdered By: Supa Brumfield on 01-10-2025 ALT [Catalytic activity/Vol] 16 U/L Normal 13-56 [facility] Comment on above: Performed By: #### L 501.5200, L500.3400, L100.0100, L500.2500, L501.2300 ####[facility] [address] [place], [place], [address] Serum or plasma albumin allan urement (mass/volume)Ordered By: Supa Brumfield on 01-10-2025 Albumin [Mass/Vol] 2.9 g/dL Low 3.2-5.0 [facility] Comment on above: Performed By: #### L 501.5200, L500.3400, L100.0100, L500.2500, L501.2300 ####[facility] [address] [place], [place], [address] Serum or plasma alkaline massimo sphatase measurementOrdered By: Supa Brumfield on 01-10-2025 ALP [Catalytic activity/Vol] 71 U/L 45-117 [facility] Total proteinOrdered By: Belinda Brumfield on 01-10-2025 Protein [Mass/Vol] 7.0 g/dL 6.4-8.2 [facility] Abdomen Limitedon 01-09-2025 Abdomen Limited Normal [facility] Albumin to globulin ratioOrd ered By: Supa Brumfield on 01-09-2025 Albumin/Globulin [Mass ratio] 0.7 {ratio} Low 0.9-2.4 [facility] Anaerobic cultureOrdered By: Supa Brumfield on 01-09-2025 Bacteria identified Anaer cx Nom (Unsp spec) No growth in 5 days. [facility] Appearance (Body fld)Ordered By: Supa Brumfield on 01-09-2025 Body Fluid Appearance SL CLDY [facility] Bacteria identified Anaer cx Nom (Unsp spec)Ordered By: Supa Brumfield on 01-09-2025 Anaerobic Culture No growth in 5 days. [facility] Basic Metabolic Profile (BMP )on 01-09-2025 BUN/CRE 31.9 RATIO High 10-20 [facility] Comment on above: Performed By: #### L 501.5200, L001.0705, L504.2610, L500.2500, L506.0400, L500.4100 ####[facility] [address] [place], [place], [id number] CA,Total 9.7 mg/dL Normal 8.5-10.1 [facility] Comment on above: Performed By: #### L 501.5200, L001.0705, L504.2610, L500.2500, L506.0400, L500.4100 ####[facility] [address] [place], [address] Chloride [Moles/Vol] 108 mmol/L High 98-107 [facility] Comment on above: Performed By: #### L 501.5200, L001.0705, L504.2610, L500.2500, L506.0400, L500.4100 ####[facility] [address] [place], [address] CO2 [Moles/Vol] 30.0 mmol/L Normal 21.0-32.0 [facility] Comment on above: Performed By: #### L 501.5200, L001.0705, L504.2610, L500.2500, L506.0400, L500.4100 ####[facility] [address] [place], [address] Creatinine [Mass/Vol] 1.19 mg/dL High 0.55-1.02 [facility] Comment on above: Result Comment: The validity of the calculated GFR GFRAA in patients over70 years has not been determined. Clinical correlation isessential. Performed By: #### L 501.5200, L001.0705, L504.2610, L500.2500, L506.0400, L500.4100 ####[facility] [address] [place], [address] ECRCL 37.21 ml/min Normal [facility] Comment on above: Performed By: #### L 501.5200, L001.0705, L504.2610, L500.2500, L506.0400, L500.4100 ####[facility] [address] [place], [address] EST GFR - AA 55 mL/min Low >60 [facility] Comment on above: Result Comment: Afri can Bruneian GFR Calc Performed By: #### L 501.5200, L001.0705, L504.2610, L500.2500, L506.0400, L500.4100 ####[facility] [address] [place], [address] GAP 3 Low 5-15 [facility] Comment on above: Performed By: #### L 501.5200, L001.0705, L504.2610, L500.2500, L506.0400, L500.4100 ####[facility] [address] [place], [address] GFR/1.73 sq M.predicted among non-blacks MDRD (S/P/Bld) [Vol rate/Area] 46 mL/min/{1.73_m2} Low >60 [facility] Comment on above: Result Comment: Non- GFR Calc Performed By: #### L 501.5200, L001.0705, L504.2610, L500.2500, L506.0400, L500.4100 ####[facility] [address] [place], [address] Glucose [Mass/Vol] 136 mg/dL High 74-106 [facility] Comment on above: Result Comment: Fast ing Glucose result greater than or equal to 126 mg/dLsuggests DIABETES MELLITUS per A.D.A. criteria. Performed By: #### L 501.5200, L001.0705, L504.2610, L500.2500, L506.0400, L500.4100 ####[facility] [address] [place], [address] Potassium [Moles/Vol] 4.4 mmol/L Normal 3.5-5.1 [facility] Comment on above: Performed By: #### L 501.5200, L001.0705, L504.2610, L500.2500, L506.0400, L500.4100 ####[facility] [address] [place], [address] Sodium [Moles/Vol] 141 mmol/L Normal 136-145 [facility] Comment on above: Performed By: #### L 501.5200, L001.0705, L504.2610, L500.2500, L506.0400, L500.4100 ####[facility] [address] [place], [address] Urea nitrogen [Mass/Vol] 38 mg/dL High 7-18 [facility] Comment on above: Performed By: #### L 501.5200, L001.0705, L504.2610, L500.2500, L506.0400, L500.4100 ####[facility] [address] [place], [place], [id number] Body fluid appearance (nomin al result)Ordered By: Supa Brumfield on 01-09-2025 Appearance (Body fld) SL CLDY [facility] Body fluid color determinati onOrdered By: Supa Brumfield on 01-09-2025 Color (Body fld) LT YEL [facility] Body fluid cultureOrdered By : Supa Brumfield on 01-09-2025 Body Fluid Culture No growth aerobically. [facility] Body fluid leukocytes count (number/volume)Ordered By: Supa Brumfield on 01-09-2025 WBC (Body fld) [#/Vol] 0.321 10*3/uL [facility] Body fluid lymphocytes/100 l eukocytesOrdered By: Supa Brumfield on 01-09-2025 Lymphocytes/100 WBC (Body fld) 69 % [facility] Body fluid macrophage countO rdered By: Supa Brumfield on 01-09-2025 Macrophages (Body fld) [#/Vol] 14 % [facility] Body fluid mononuclear cell countOrdered By: Supa Brumfield on 01-09-2025 Body Fluid Mononuclear WBCs 0.300 10^3/uL [facility] Body fluid mononuclear cell percentageOrdered By: Supa Brumfield on 01-09-2025 Mononuclear cells/100 WBC (Body fld) 93.5 % [facility] Body fluid other cell count as percentage of leukocytesOrdered By: Supa Brumfield on 01-09-2025 Other cells/100 WBC (Body fld) 1 % [facility] Body fluid segmented neutrop hils count (number/volume)Ordered By: Supa Brumfield on 01-09-2025 Segmented neutrophils (Body fld) [#/Vol] 12 % [facility] CBC W/Diff, Automatedon 12-22 Absolute Lymph 0.81 X10 3/uL Low 0.83-4.51 [facility] Comment on above: Performed By: #### L 100.0100, L501.9985, L501.2300 ####[facility] [address] [place], [address] Absolute Neut 5.8 X10 3/uL Normal 2.0-7.7 [facility] Comment on above: Performed By: #### L 100.0100, L501.9985, L501.2300 ####[facility] [address] [place], [address] Basophils/100 WBC (Bld) 1.1 % High 0-1 [facility] Comment on above: Performed By: #### L 100.0100, L501.9985, L501.2300 ####[facility] [address] [place], [address] Eosinophils/100 WBC (Bld) 3.6 % Normal 0-5 [facility] Comment on above: Performed By: #### L 100.0100, L501.9985, L501.2300 ####[facility] [address] [place], [address] Erythrocyte distribution width (RBC) [Ratio] 16.0 % High 11.6-14.6 [facility] Comment on above: Performed By: #### L 100.0100, L501.9985, L501.2300 ####[facility] [address] [place], [address] Hematocrit (Bld) [Volume fraction] 39.4 % Normal 37-47 [facility] Comment on above: Performed By: #### L 100.0100, L501.9985, L501.2300 ####[facility] [address] [place], [address] Hemoglobin (Bld) [Mass/Vol] 12.2 g/dL Normal 12.0-15.0 [facility] Comment on above: Performed By: #### L 100.0100, L501.9985, L501.2300 ####[facility] [address] [place], [address] IG% 0.400 Normal 0.0-0.9 [facility] Comment on above: Result Comment: IG% - Immature Granulocytes (promyelocytes, myelocytes andmetamyelocytes) > 1% indicates that a LEFT SHIFT is Present. Performed By: #### L 100.0100, L501.9985, L501.2300 ####[facility] [address] [place], [address] Lymphocytes/100 WBC (Bld) 10.8 % Low 19-41 [facility] Comment on above: Performed By: #### L 100.0100, L501.9985, L501.2300 ####[facility] [address] [place], [address] MCH (RBC) [Entitic mass] 28.3 pg Normal 27.0-32.0 [facility] Comment on above: Performed By: #### L 100.0100, L501.9985, L501.2300 ####[facility] [address] [place], [address] MCHC (RBC) [Mass/Vol] 31.0 g/dL Low 32-36 [facility] Comment on above: Performed By: #### L 100.0100, L501.9985, L501.2300 ####[facility] [address] [place], [address] MCV (RBC) [Entitic vol] 91.4 fL Normal 81-99 [facility] Comment on above: Performed By: #### L 100.0100, L501.9985, L501.2300 ####[facility] [address] [place], [address] Monocytes/100 WBC (Bld) 7.3 % Normal 0-10 [facility] Comment on above: Performed By: #### L 100.0100, L501.9985, L501.2300 ####[facility] [address] [place], [address] Neutrophils/100 WBC (Bld) 76.8 % High 47-70 [facility] Comment on above: Performed By: #### L 100.0100, L501.9985, L501.2300 ####[facility] [address] [place], [address] Nucleated RBC (Bld) [#/Vol] 0 10*3/uL Normal 0-5 [facility] Comment on above: Performed By: #### L 100.0100, L501.9985, L501.2300 ####[facility] [address] [place], [address] Platelet mean volume (Bld) [Entitic vol] 10.1 fL Normal 6.2-12.0 [facility] Comment on above: Performed By: #### L 100.0100, L501.9985, L501.2300 ####[facility] [address] [place], [address] Platelets (Bld) [#/Vol] 275 10*3/uL Normal 150-450 [facility] Comment on above: Performed By: #### L 100.0100, L501.9985, L501.2300 ####[facility] [address] [place], [address] RBC (Bld) [#/Vol] 4.31 10*6/uL Normal 4.2-5.4 [facility] Comment on above: Performed By: #### L 100.0100, L501.9985, L501.2300 ####[facility] [address] [place], [address] RDW SD 53.1 fl High 35.1-43.9 [facility] Comment on above: Performed By: #### L 100.0100, L501.9985, L501.2300 ####[facility] [address] [place], [address] WBC (Bld) [#/Vol] 7.5 10*3/uL Normal 4.4-11.0 [facility] Comment on above: Performed By: #### L 100.0100, L501.9985, L501.2300 ####[facility] [address] [place], [address] Cells counted Molgen (Bld/Ti ss) [#]Ordered By: Supa Brumfield on 01-09-2025 Body Fluid Total Cells Counted 0.333 10^3/ul High 0.000-0.00 0 [facility] Comment on above: This is the Total Nu mber of Nucleated Cell Types in the Body Fluid. Chest Insp/Exp 2 Viewon 12-22 Chest Insp/Exp 2 View Normal [facility] Color (Body fld)Ordered By: Supa Brumfield on 01-09-2025 Body Fluid Color LT YEL [facility] Consultation - Cardiologyon 01-09-2025 Consultation - Cardiology Normal [facility] Cytology report Cyto stain D oc (Body fld)Ordered By: Supa Brumfield on 01-09-2025 Miscellaneous Cytology SEE PATHOLOGY REPORT [facility] Comment on above: Specimen submitted t o Anatomical Pathology Department for testing. Cytology report of Body flui d Cyto stainOrdered By: Supa Brumfield on 01-09-2025 Cytology report Cyto stain Doc (Body fld) SEE PATHOLOGY REPORT [facility] Comment on above: Specimen submitted t o Anatomical Pathology Department for testing. Cytology, Body Fluid / CSFon 01-09-2025 CYTOLOGY,BF/CSF SEE PATHOLOGY REPORT Normal [facility] Comment on above: Result Comment: Spec imen submitted to Anatomical Pathology Department fortesting. Performed By: #### L 350.1000, M100.2000, M100.2900, L200.0200, M100.4001 ####[facility] [address] [place], [place], [id number] Direct serum free thyroxine (FT4) measurementOrdered By: Supa Brumfield on 01-09-2025 Free T4 [Mass/Vol] 1.21 ng/dL 0.76-1.46 [facility] Echo Completeon 01-09-2025 Echo Complete Normal [facility] Glucose, Body Fluidon 2024 GLU,BF 142 mg/dL High 40-70 [facility] Comment on above: Performed By: #### L 504.0250, L503.0100, L503.0300 ####[facility] [address] [place], [place], [id number] Gram stainOrdered By: Katie Brumfield on 01-09-2025 Microscopic observation Gram stain Nom (Unsp spec) [facility] Hemoglobin A1con 01-09-2025 HbA1c (Bld) [Mass fraction] 6.7 % High 3.8-5.6 [facility] Comment on above: Result Comment: Norm al < 5.7 % Prediabetic 5.7 - 6.4 % Diabetic >or= 6.5 % Please note range changes. Performed By: #### L 100.0100, L501.9985, L501.2300 ####[facility] [address] [place], [place], [id number] Hemoglobin A1c percentageOrd ered By: Supa Brumfield on 01-09-2025 HbA1c (Bld) [Mass fraction] 6.7 % High 3.8-5.6 [facility] Comment on above: Normal < 5.7 % Predi abetic 5.7 - 6.4 % Diabetic >or= 6.5 % Please note range changes. High density lipoprotein (HD L) measurementOrdered By: Supa Brumfield on 01-09-2025 Cholesterol in HDL [Mass/Vol] 74 mg/dL >40 [facility] Comment on above: The drugs N-Acetylcy steine and Metamizole may falsely depress this assay. Reference Range HDL <40 mg/dL Low HDL Cholesterol HDL >or= 60 mg/dL High HDL Cholesterol High density lipoprotein (HDL) measurement 74 mg/dL >40 [facility] LDHon 01-09-2025 LDH 160 U/L Normal 84-246 [facility] Comment on above: Performed By: #### L 501.5200, L001.0705, L504.2610, L500.2500, L506.0400, L500.4100 ####[facility] [address] [place], [address] LDH,Body Fluidon 01-09-2025 LDH,BF 51 Units/L Normal Not Establ. [facility] Comment on above: Performed By: #### L 504.0250, L503.0100, L503.0300 ####[facility] [address] [place], [address] Lactate dehydrogenase (LDH) measurementOrdered By: Supa Brumfield on 01-09-2025 LDH [Catalytic activity/Vol] 160 U/L 84-246 [facility] Lipid Profileon 01-09-2025 Cholesterol [Mass/Vol] 118 mg/dL Normal 200 [facility] Comment on above: Result Comment: <200 mg/dL Desirable 200-240 mg/dL Borderline >240 mg/dL High Risk Performed By: #### L 501.5200, L001.0705, L504.2610, L500.2500, L506.0400, L500.4100 ####[facility] [address] [place], [address] Cholesterol in HDL [Mass/Vol] 74 mg/dL Normal [facility] Comment on above: Result Comment: The drugs N-Acetylcysteine and Metamizole may falselydepress this assay. Reference Range HDL <40 mg/dL Low HDL Cholesterol HDL >or= 60 mg/dL High HDL Cholesterol Performed By: #### L 501.5200, L001.0705, L504.2610, L500.2500, L506.0400, L500.4100 ####[facility] [address] [place], [address] Cholesterol in LDL [Mass/Vol] 27 mg/dL Normal 0-130 [facility] Comment on above: Performed By: #### L 501.5200, L001.0705, L504.2610, L500.2500, L506.0400, L500.4100 ####[facility] [address] [place], [address] Cholesterol in VLDL [Mass/Vol] 17 mg/dL Normal 5-40 [facility] Comment on above: Performed By: #### L 501.5200, L001.0705, L504.2610, L500.2500, L506.0400, L500.4100 ####[facility] [address] [place], [address] Triglyceride [Mass/Vol] 86 mg/dL Normal [facility] Comment on above: Result Comment: The drugs N-Acetylcysteine and Metamizole may falselydepress this assay.Serum Triglycerides Reference Interval Normal <150 mg/dL Borderline high 150 - 199 mg/dL High 200 - 499 mg/dL Very High > or = 500 mg/dL Performed By: #### L 501.5200, L001.0705, L504.2610, L500.2500, L506.0400, L500.4100 ####[facility] [address] [place], [address] Low density lipoprotein (LDL ) cholesterol measurementOrdered By: Supa Brumfield on 01-09-2025 Cholesterol in LDL [Mass/Vol] 27 mg/dL 0-130 [facility] Low density lipoprotein (LDL) cholesterol measurement 27 mg/dL 0-130 [facility] Lymphocytes/100 WBC (Body fl d)Ordered By: Supa Brumfield on 01-09-2025 Body Fluid Lymphocytes 69 % [facility] Macrophages (Body fld) [#/Vo l]Ordered By: Supa Brumfield on 01-09-2025 Body Fluid Macrophages 14 % [facility] Magnesiumon 01-09-2025 Magnesium [Mass/Vol] 2.0 mg/dL Normal 1.6-2.6 [facility] Comment on above: Performed By: #### L 501.5200, L001.0705, L504.2610, L500.2500, L506.0400, L500.4100 ####[facility] [address] [place], [address] Monocyte detectionOrdered By : Supa Brumfield on 01-09-2025 Body Fluid Monocytes 4 % [facility] Monocytes/100 WBC (Bld) 4 % [facility] Mononuclear cells/100 WBC (B henry fld)Ordered By: Supa Brumfield on 01-09-2025 Body Fluid Mononuclear WBCs (%) 93.5 % [facility] No Panel InformationOrdered By: Supa Brumfield on 01-09-2025 Body Fluid Comment 2 SEE COMMENT [facility] Body Fluid RBC 1290 /mm3 [facility] 1290 /mm3 [facility] SEE COMMENT [facility] Operative Reporton Operative Report Normal [facility] Other cells/100 WBC (Body fl d)Ordered By: Supa Brumfield on 01-09-2025 Body Fluid Other Cells 1 % [facility] Pathologist interpretation ( Body fld) [Interp]Ordered By: Supa Brumfield on 01-09-2025 Body Fluid Pathologist Comment Reviewed [facility] Comment on above: Previous reported re sult: May follow Edited by: OSCAR on 01/10/25:1421Negative for malignant cells.PLEASE ALSO REFER TO CYTOLOGY REPORT [id number] Luna M.D. 01/10/25 AMENDED REPORT 01/10/251 PATH COMM/BF previously reported as: May follow Pathologist interpretation o f Body fluid testsOrdered By: Supa Brumfield on 01-09-2025 Pathologist interpretation (Body fld) [Interp] Reviewed [facility] Comment on above: Previous reported re sult: May follow Edited by: OSCAR on 01/10/25:1421Negative for malignant cells.PLEASE ALSO REFER TO CYTOLOGY REPORT [id number] Luna M.D. 01/10/25 AMENDED REPORT 01/10/25 1421 PATH COMM/BF previously reported as: May follow Phosphoruson 01-09-2025 Phosphate [Mass/Vol] 4.1 mg/dL Normal 2.5-4.9 [facility] Comment on above: Performed By: #### L 100.0100, L501.9985, L501.2300 ####[facility] [address] [place], [address] Polymorphonuclear (PMN) leuk ocyte countOrdered By: Supa Brumfield on 01-09-2025 Body Fluid Polynuclear WBCs (%) 6.5 % [facility] Protein, Body Fluidon 2024 Protein [Mass/Vol] 2.5 g/dL Normal Not Establ. [facility] Comment on above: Performed By: #### L 504.0250, L503.0100, L503.0300 ####[facility] [address] [place], [address] Protein, Totalon 01-09-2025 Albumin/Globulin [Mass ratio] 0.7 {ratio} Low 0.9-2.4 [facility] Comment on above: Performed By: #### L 501.5200, L001.0705, L504.2610, L500.2500, L506.0400, L500.4100 ####[facility] [address] [place], [address] Globulin (S) [Mass/Vol] 4.4 g/dL High 2.2-4.2 [facility] Comment on above: Performed By: #### L 501.5200, L001.0705, L504.2610, L500.2500, L506.0400, L500.4100 ####[facility] [address] [place], [address] T PROT 7.5 g/dL Normal 6.4-8.2 [facility] Comment on above: Performed By: #### L 501.5200, L001.0705, L504.2610, L500.2500, L506.0400, L500.4100 ####[facility] [address] [place], [place], [id number] Segmented neutrophils (Body fld) [#/Vol]Ordered By: Supa Brumfield on 01-09-2025 Body Fluid Neutrophils 12 % [facility] Serum or plasma cholesterol measurement (mass/volume)Ordered By: Supa Brumfield on 01-09-2025 Cholesterol [Mass/Vol] 118 mg/dL <200 [facility] Comment on above: <200 mg/dL Desirable 200-240 mg/dL Borderline >240 mg/dL High Risk Special Stain Group IIon Special Stain Group II Normal [facility] Comment on above: Performed By: #### P SSII ####[facility] [address] [place], [place], [id number] Specimen source Nom (Body fl d)Ordered By: Supa Brumfield on 01-09-2025 Body Fluid Source PLEURAL FLUID [facility] Specimen source identificati on of body fluidOrdered By: Supa Brumfield on 01-09-2025 Specimen source Nom (Body fld) PLEURAL FLUID [facility] T4 Free Directon 01-09-2025 T4 FREE DIRECT 1.21 ng/dL Normal 0.76-1.46 [facility] Comment on above: Performed By: #### L 501.5200, L001.0705, L504.2610, L500.2500, L506.0400, L500.4100 ####[facility] [address] [place], [address] Total cell countOrdered By: Supa Brumfield on 01-09-2025 Cells counted Molgen (Bld/Tiss) [#] 0.333 10^3/ul High 0.000-0.00 0 [facility] Comment on above: This is the Total Nu mber of Nucleated Cell Types in the Body Fluid. Triglycerides measurementOrd ered By: Supa Brumfield on 01-09-2025 Triglyceride [Mass/Vol] 86 mg/dL <199 [facility] Comment on above: The drugs N-Acetylcy steine and Metamizole may falsely depress this assay.Serum Triglycerides Reference Interval Normal <150 mg/dL Borderline high 150 - 199 mg/dL High 200 - 499 mg/dL Very High > or = 500 mg/dL Very low density lipoprotein (VLDL) cholesterol measurementOrdered By: Supa Brumfield on 01-09-2025 Very low density lipoprotein (VLDL) cholesterol measurement 17 mg/dL 5-40 [facility] VLDL Cholesterol 17 mg/dL 5-40 [facility] WBC (Body fld) [#/Vol]Ordere d By: Supa Brumfield on 01-09-2025 Body Fluid WBC 0.321 10^3/uL [facility] Body Fluid Polynuclear WBCs (#) 0.021 10^3/uL [facility] WBC body fluidOrdered By: Fanny Brumfield on 01-09-2025 WBC (Body fld) [#/Vol] 0.021 10*3/uL [facility] Activated partial thrombopla stin time (aPTT) in platelet poor plasma by coagulation aOrdered By: Jey Madrid on 01-08-2025 aPTT Coag (PPP) [Time] 28.0 s 24.1-36.2 [facility] BNP (brain natriuretic pepti de measurement)Ordered By: Jey Madrid on 01-08-2025 Natriuretic peptide B (Bld) [Mass/Vol] 230.5 pg/mL High 0-100 [facility] BNP,B-Type NATRIURETIC PEPTI [place] 01-08-2025 Natriuretic peptide B (Bld) [Mass/Vol] 230.5 pg/mL High 0-100 [facility] Comment on above: Performed By: #### L 300.4310, L100.0100, L300.3900, L501.9520, L500.2500, L501.4020, L503.6620 ####[facility] [address] [place], [address] Basic Metabolic Profile (BMP )on 01-08-2025 BUN/CRE 29.2 RATIO High 10-20 [facility] Comment on above: Order Comment: 'TROP ' Serial specimen #1, #2 or #3: 1 Performed By: #### L 300.4310, L100.0100, L300.3900, L501.9520, L500.2500, L501.4020, L503.6620 ####[facility] [address] [place], [address] CA,Total 10.1 mg/dL Normal 8.5-10.1 [facility] Comment on above: Order Comment: 'TROP ' Serial specimen #1, #2 or #3: 1 Performed By: #### L 300.4310, L100.0100, L300.3900, L501.9520, L500.2500, L501.4020, L503.6620 ####[facility] [address] [place], [address] Chloride [Moles/Vol] 105 mmol/L Normal 98-107 [facility] Comment on above: Order Comment: 'TROP ' Serial specimen #1, #2 or #3: 1 Performed By: #### L 300.4310, L100.0100, L300.3900, L501.9520, L500.2500, L501.4020, L503.6620 ####[facility] [address] [place], [address] CO2 [Moles/Vol] 23.0 mmol/L Normal 21.0-32.0 [facility] Comment on above: Order Comment: 'TROP ' Serial specimen #1, #2 or #3: 1 Performed By: #### L 300.4310, L100.0100, L300.3900, L501.9520, L500.2500, L501.4020, L503.6620 ####[facility] [address] [place], [address] Creatinine [Mass/Vol] 1.37 mg/dL High 0.55-1.02 [facility] Comment on above: Order Comment: 'TROP ' Serial specimen #1, #2 or #3: 1 Result Comment: The validity of the calculated GFR GFRAA in patients over70 years has not been determined. Clinical correlation isessential. Performed By: #### L 300.4310, L100.0100, L300.3900, L501.9520, L500.2500, L501.4020, L503.6620 ####[facility] [address] [place], [address] ECRCL 33.72 ml/min Normal [facility] Comment on above: Order Comment: 'TROP ' Serial specimen #1, #2 or #3: 1 Performed By: #### L 300.4310, L100.0100, L300.3900, L501.9520, L500.2500, L501.4020, L503.6620 ####[facility] [address] [place], [address] EST GFR - AA 47 mL/min Low >60 [facility] Comment on above: Order Comment: 'TROP ' Serial specimen #1, #2 or #3: 1 Result Comment: Afri can Bruneian GFR Calc Performed By: #### L 300.4310, L100.0100, L300.3900, L501.9520, L500.2500, L501.4020, L503.6620 ####[facility] [address] [place], [address] GAP 12 Normal 5-15 [facility] Comment on above: Order Comment: 'TROP ' Serial specimen #1, #2 or #3: 1 Performed By: #### L 300.4310, L100.0100, L300.3900, L501.9520, L500.2500, L501.4020, L503.6620 ####[facility] [address] [place], [address] GFR/1.73 sq M.predicted among non-blacks MDRD (S/P/Bld) [Vol rate/Area] 39 mL/min/{1.73_m2} Low >60 [facility] Comment on above: Order Comment: 'TROP ' Serial specimen #1, #2 or #3: 1 Result Comment: Non- GFR Calc Performed By: #### L 300.4310, L100.0100, L300.3900, L501.9520, L500.2500, L501.4020, L503.6620 ####[facility] [address] [place], [address] Glucose [Mass/Vol] 145 mg/dL High 74-106 [facility] Comment on above: Order Comment: 'TROP ' Serial specimen #1, #2 or #3: 1 Result Comment: Fast ing Glucose result greater than or equal to 126 mg/dLsuggests DIABETES MELLITUS per A.D.A. criteria. Performed By: #### L 300.4310, L100.0100, L300.3900, L501.9520, L500.2500, L501.4020, L503.6620 ####[facility] [address] [place], [address] Potassium [Moles/Vol] 4.0 mmol/L Normal 3.5-5.1 [facility] Comment on above: Order Comment: 'TROP ' Serial specimen #1, #2 or #3: 1 Performed By: #### L 300.4310, L100.0100, L300.3900, L501.9520, L500.2500, L501.4020, L503.6620 ####[facility] [address] [place], [address] Sodium [Moles/Vol] 140 mmol/L Normal 136-145 [facility] Comment on above: Order Comment: 'TROP ' Serial specimen #1, #2 or #3: 1 Performed By: #### L 300.4310, L100.0100, L300.3900, L501.9520, L500.2500, L501.4020, L503.6620 ####[facility] [address] [place], [address] Urea nitrogen [Mass/Vol] 40 mg/dL High 06-07 [facility] Comment on above: Order Comment: 'TROP ' Serial specimen #1, #2 or #3: 1 Performed By: #### L 300.4310, L100.0100, L300.3900, L501.9520, L500.2500, L501.4020, L503.6620 ####[facility] [address] [place], [place], [id number] Body fluid lactate dehydroge nase (LDH) measurementOrdered By: Supa Brumfield on 01-08-2025 Body Fluid Lactate Dehydrogenase 51 Units/L Not Establ. [facility] Body fluid total protein trisha surementOrdered By: Supa Brumfield on 01-08-2025 Protein (Body fld) [Mass/Vol] 2.5 g/dL Not Establ. [facility] CBC W/Diff, Automatedon 12-22 Absolute Lymph 1.24 X10 3/uL Normal 0.83-4.51 [facility] Comment on above: Performed By: #### L 300.4310, L100.0100, L300.3900, L501.9520, L500.2500, L501.4020, L503.6620 ####[facility] [address] [place], [place], [phone]) Absolute Neut 6.2 X10 3/uL Normal 2.0-7.7 [facility] Comment on above: Performed By: #### L 300.4310, L100.0100, L300.3900, L501.9520, L500.2500, L501.4020, L503.6620 ####[facility] [address] [place], [address] Basophils/100 WBC (Bld) 1.5 % High 0-1 [facility] Comment on above: Performed By: #### L 300.4310, L100.0100, L300.3900, L501.9520, L500.2500, L501.4020, L503.6620 ####[facility] [address] [place], [address] Eosinophils/100 WBC (Bld) 3.9 % Normal 0-5 [facility] Comment on above: Performed By: #### L 300.4310, L100.0100, L300.3900, L501.9520, L500.2500, L501.4020, L503.6620 ####[facility] [address] [place], [address] Erythrocyte distribution width (RBC) [Ratio] 16.0 % High 11.6-14.6 [facility] Comment on above: Performed By: #### L 300.4310, L100.0100, L300.3900, L501.9520, L500.2500, L501.4020, L503.6620 ####[facility] [address] [place], [address] Hematocrit (Bld) [Volume fraction] 41.3 % Normal 37-47 [facility] Comment on above: Performed By: #### L 300.4310, L100.0100, L300.3900, L501.9520, L500.2500, L501.4020, L503.6620 ####[facility] [address] [place], [address] Hemoglobin (Bld) [Mass/Vol] 12.9 g/dL Normal 12.0-15.0 [facility] Comment on above: Performed By: #### L 300.4310, L100.0100, L300.3900, L501.9520, L500.2500, L501.4020, L503.6620 ####[facility] [address] [place], [address] IG% 0.600 Normal 0.0-0.9 [facility] Comment on above: Result Comment: IG% - Immature Granulocytes (promyelocytes, myelocytes andmetamyelocytes) > 1% indicates that a LEFT SHIFT is Present. Performed By: #### L 300.4310, L100.0100, L300.3900, L501.9520, L500.2500, L501.4020, L503.6620 ####[facility] [address] [place], [address] Lymphocytes/100 WBC (Bld) 14.4 % Low 19-41 [facility] Comment on above: Performed By: #### L 300.4310, L100.0100, L300.3900, L501.9520, L500.2500, L501.4020, L503.6620 ####[facility] [address] [place], [address] MCH (RBC) [Entitic mass] 28.5 pg Normal 27.0-32.0 [facility] Comment on above: Performed By: #### L 300.4310, L100.0100, L300.3900, L501.9520, L500.2500, L501.4020, L503.6620 ####[facility] [address] [place], [address] MCHC (RBC) [Mass/Vol] 31.2 g/dL Low 32-36 [facility] [facility] Comment on above: Performed By: #### L 300.4310, L100.0100, L300.3900, L501.9520, L500.2500, L501.4020, L503.6620 ####[facility] [address] [place], [address] MCV (RBC) [Entitic vol] 91.2 fL Normal 81-99 [facility] Comment on above: Performed By: #### L 300.4310, L100.0100, L300.3900, L501.9520, L500.2500, L501.4020, L503.6620 ####[facility] [address] [place], [address] Monocytes/100 WBC (Bld) 7.6 % Normal 0-10 [facility] Comment on above: Performed By: #### L 300.4310, L100.0100, L300.3900, L501.9520, L500.2500, L501.4020, L503.6620 ####[facility] [address] [place], [address] Neutrophils/100 WBC (Bld) 72.0 % High 47-70 [facility] Comment on above: Performed By: #### L 300.4310, L100.0100, L300.3900, L501.9520, L500.2500, L501.4020, L503.6620 ####[facility] [address] [place], [address] Nucleated RBC (Bld) [#/Vol] 0 10*3/uL Normal 0-5 [facility] Comment on above: Performed By: #### L 300.4310, L100.0100, L300.3900, L501.9520, L500.2500, L501.4020, L503.6620 ####[facility] [address] [place], [address] Platelet mean volume (Bld) [Entitic vol] 10.5 fL Normal 6.2-12.0 [facility] Comment on above: Performed By: #### L 300.4310, L100.0100, L300.3900, L501.9520, L500.2500, L501.4020, L503.6620 ####[facility] [address] [place], [address] Platelets (Bld) [#/Vol] 330 10*3/uL Normal 150-450 [facility] Comment on above: Performed By: #### L 300.4310, L100.0100, L300.3900, L501.9520, L500.2500, L501.4020, L503.6620 ####[facility] [address] [place], [address] RBC (Bld) [#/Vol] 4.53 10*6/uL Normal 4.2-5.4 [facility] Comment on above: Performed By: #### L 300.4310, L100.0100, L300.3900, L501.9520, L500.2500, L501.4020, L503.6620 ####[facility] [address] [place], [address] RDW SD 52.7 fl High 35.1-43.9 [facility] Comment on above: Performed By: #### L 300.4310, L100.0100, L300.3900, L501.9520, L500.2500, L501.4020, L503.6620 ####[facility] [address] [place], [address] WBC (Bld) [#/Vol] 8.6 10*3/uL Normal 4.4-11.0 [facility] Comment on above: Performed By: #### L 300.4310, L100.0100, L300.3900, L501.9520, L500.2500, L501.4020, L503.6620 ####[facility] [address] [place], [address] CNOVon 01-08-2025 CNOV Normal [facility] Chest 1 View (Portable)on Chest 1 View (Portable) Normal [facility] ECG COMPLETEon 01-08-2025 ECG COMPLETE Normal [facility] Emergency Department Summary on 01-08-2025 Emergency Department Summary Normal [facility] Glucose, body fluidOrdered B y: Supa Brumfield on 01-08-2025 Body Fluid Glucose 142 mg/dL High 40-70 [facility] H AND P Exam - Hospitaliston 01-08-2025 H&P Exam - Hospitalist Normal [facility] International normalized rat io (INR) calculationOrdered By: Jey Madrid on 01-08-2025 INR Coag (Bld) [Relative time] 1.2 {INR} [facility] L501.4020on 01-08-2025 TROPONIN-I HS 13 pg/mL Normal 3.0-54.0 [facility] Comment on above: Order Comment: 'TROP ' Serial specimen #1, #2 or #3: 1 Result Comment: Edwin haney Note: New Test Units and Gender Specific Reference Ranges. For more information see Policy Stat Procedure [place] High Sensitivity Troponin (TNIH) and attachments. Performed By: #### L 300.4310, L100.0100, L300.3900, L501.9520, L500.2500, L501.4020, L503.6620 ####[facility] [address] [place], [address] Partial Thromboplast Timeon 01-08-2025 aPTT Coag (Bld) [Time] 28.0 s Normal 24.1-36.2 [facility] Comment on above: Performed By: #### L 300.4310, L100.0100, L300.3900, L501.9520, L500.2500, L501.4020, L503.6620 ####[facility] [address] [place], [address] Protein (Body fld) [Mass/Vol ]Ordered By: Supa Brumfield on 01-08-2025 Body Fluid Total Protein 2.5 g/dL Not Establ. [facility] Prothrombin Time w/INRon INR Coag (PPP) [Relative time] 1.2 {INR} Normal [facility] Comment on above: Performed By: #### L 300.4310, L100.0100, L300.3900, L501.9520, L500.2500, L501.4020, L503.6620 ####[facility] [address] [place], [place], [id number] PT Coag (PPP) [Time] 15.1 s High 11.7-14.9 [facility] Comment on above: Performed By: #### L 300.4310, L100.0100, L300.3900, L501.9520, L500.2500, L501.4020, L503.6620 ####[facility] [address] [place], [address] Prothrombin timeOrdered By: Jey Madrid on 01-08-2025 PT Coag (PPP) [Time] 15.1 s High 11.7-14.9 [facility] Serum or plasma thyroid stim ulating hormone (TSH) measurement (units/volume)Ordered By: Jey Madrid on 01-08-2025 TSH Qn 4.920 uIU/mL High 0.358-3.74 0 [facility] TSH QnOrdered By: Jey campos on 01-08-2025 Thyroid Stimulating Hormone (TSH) 4.920 uIU/mL High 0.358-3.74 0 [facility] Thyroid Stim Hormone (TSH)on 01-08-2025 TSH 4.920 uIU/mL High 0.358-3.74 0 [facility] Comment on above: Order Comment: 'TROP ' Serial specimen #1, #2 or #3: 1 Performed By: #### L 300.4310, L100.0100, L300.3900, L501.9520, L500.2500, L501.4020, L503.6620 ####[facility] [address] [place], [place], [address] Troponin IOrdered By: Jey johnson on 01-08-2025 Troponin I 13 pg/mL 3.0-54.0 [facility] Comment on above: Please Note: New Abimael t Units and Gender Specific Reference Ranges. For more information see Policy Stat Procedure [place] High Sensitivity Troponin (TNIH) and attachments. Troponin I High Sensitivity 13 pg/mL 3.0-54.0 [facility] Comment on above: Please Note: New Abimael t Units and Gender Specific Reference Ranges. For more information see Policy Stat Procedure [place] High Sensitivity Troponin (TNIH) and attachments. aPTT Coag (PPP) [Time]Ordere d By: Jey Madrid on 01-08-2025 aPTT Coag (Bld) [Time] 28.0 s 24.1-36.2 [facility] CNOVon 12-22-2024 CNOV Normal [facility] CNPNon 12-11-2024 CNPN Normal [facility] CNOVon 10-11-2024 CNOV Normal [facility] CNPTOUTREACHon 09-25-2024 CNPTOUTREACH Normal [facility] MAMMO SCREENING WITH DAVION BI LATERALon 09-10-2024 [...] The current National Comprehensive Cancer Network and [place] [employer] guidelines recommend women undergo a screening mammogram every year over the age of 40 and continue mammographic screening as long as they are in good health. Screening mammography under age 40 may occur for women who are at increased risk for breast cancer. SA Facility: [facility], [address] [place] [address], Table formatting from the original result was not included. MAMMO STANDARD RISK MQSA SITE BEGIN [place] [address] MQSA SITE END Normal [facility] MG Breast - bilateral Screen ingon 09-10-2024 IMPRESSION: No mammographic evidence of malignancy. BI-RADS: 2: Benign Recommendation: Routine mammography. Recommendation Laterality: Bilateral The current National Comprehensive Cancer Network and [place] [employer] guidelines recommend women undergo a screening mammogram every year over the age of 40 and continue mammographic screening as long as they are in good health. Screening mammography under age 40 may occur for women who are at increased risk for breast cancer. SA Facility: [facility], [address] [place] [address], OLOGY EXAM: MAMMO SCREENIN G WITH DAVION [...] The current National Comprehensive Cancer Network and [place] [employer] guidelines recommend women undergo a screening mammogram every year over the age of 40 and continue mammographic screening as long as they are in good health. Screening mammography under age 40 may occur for women who are at increased risk for breast cancer. [facility] Facility: [facility], [address] [place] [address], [facility] Radiology Study observation (narrative) [facility] MG Breast - bilateral Screen ingOrdered By: Woo Govea on 09-10-2024 [facility] Work Phone: CNPNon 09-08-2024 CNPN Normal [facility] CBC panel Auto (Bld)on 09-06 Erythrocyte distribution width (RBC) [Ratio] 16.1 % High 11.5-15.0 [facility] Comment on above: Order Comment: Speci men Type: BLOOD SPECIMENOrdering Facility: [facility] Address: [address] [place] [address] Performed By: #### 5 8410-2 ####[facility] LABCLIA [id number] [place] [address] [place] Hematocrit (Bld) [Volume fraction] 42.1 % Normal 36.0-46.0 [facility] Comment on above: Order Comment: Speci men Type: BLOOD SPECIMENOrdering Facility: [facility] Address: [address] [place] [address] Performed By: #### 5 8410-2 ####[facility] LABCLIA [id number] [place] [address] [place] Hemoglobin (Bld) [Mass/Vol] 12.9 g/dL Normal 11.5-15.5 [facility] Comment on above: Order Comment: Speci men Type: BLOOD SPECIMENOrdering Facility: [facility] Address: [address] [place] [address] Performed By: #### 5 8410-2 ####[facility] LABCLIA [id number] [place] [address] [place] MCH (RBC) [Entitic mass] 27.7 pg Normal 26.0-34.0 [facility] Comment on above: Order Comment: Speci men Type: BLOOD SPECIMENOrdering Facility: [facility] Address: [address] [place] [address] Performed By: #### 5 8410-2 ####[facility] LABIA [id number] [place] [address] [place] MCHC (RBC) [Mass/Vol] 30.6 g/dL Normal 30.5-36.0 [facility] Comment on above: Order Comment: Speci men Type: BLOOD SPECIMENOrdering Facility: [facility] Address: [address] [place] [address] Performed By: #### 5 8410-2 ####[facility] LABCLIA [id number] [place] [address] [place] MCV (RBC) [Entitic vol] 90.5 fL Normal 80.0-100.0 [facility] Comment on above: Order Comment: Speci men Type: BLOOD SPECIMENOrdering Facility: [facility] Address: [address] [place] [address] Performed By: #### 5 8410-2 ####[facility] LABCLIA [id number] [place] [address] [place] Nucleated RBC (Bld) [#/Vol] 10*3/uL Normal <0.01 [facility] Comment on above: Order Comment: Speci men Type: BLOOD SPECIMENOrdering Facility: [facility] Address: [address] [place] [address] Performed By: #### 5 8410-2 ####[facility] LABIA [id number] [place] [address] [place] Platelet mean volume (Bld) [Entitic vol] 11.2 fL Normal 9.0-12.7 [facility] Comment on above: Order Comment: Speci men Type: BLOOD SPECIMENOrdering Facility: [facility] Address: [address] [place] [address] Performed By: #### 5 8410-2 ####[facility] LABIA [id number] [place] [address] [place] Platelets (Bld) [#/Vol] 239 10*3/uL Normal 150-400 [facility] Comment on above: Order Comment: Speci men Type: BLOOD SPECIMENOrdering Facility: [facility] Address: [address] [place] [address] Performed By: #### 5 8410-2 ####[facility] LABIA [id number] [place] [address] [place] RBC (Bld) [#/Vol] 4.65 10*6/uL Normal 3.90-5.20 [facility] Comment on above: Order Comment: Speci men Type: BLOOD SPECIMENOrdering Facility: [facility] Address: [address] [place] [address] Performed By: #### 5 8410-2 ####[facility] LABIA [id number] [place] [address] [place] WBC (Bld) [#/Vol] 7.44 10*3/uL Normal 3.70-11.00 [facility] Comment on above: Order Comment: Speci men Type: BLOOD SPECIMENOrdering Facility: [facility] Address: [address] [place] [address] Performed By: #### 5 8410-2 ####[facility] LABCLIA [id number] [place] [address] [place] [facility] Comprehensive metabolic 2000 panelon 09-06-2024 Albumin [Mass/Vol] 3.9 g/dL Normal 3.9-4.9 [facility] Comment on above: Order Comment: Speci men Type: BLOOD SPECIMENOrdering Facility: [facility] Address: [address] [place] [address] Performed By: #### 3 016-3, 95210-8, 73881-6 ####[facility] LABCLIA [id number] [place] [address] [place] ALP [Catalytic activity/Vol] 79 U/L Normal 34-123 [facility] Comment on above: Order Comment: Speci men Type: BLOOD SPECIMENOrdering Facility: [facility] Address: [address] [place] [address] Performed By: #### 3 016-3, 84530-2, 10085-8 ####[facility] LABCLIA [id number] [place] [address] [place] ALT [Catalytic activity/Vol] 17 U/L Normal 7-38 [facility] Comment on above: Order Comment: Speci men Type: BLOOD SPECIMENOrdering Facility: [facility] Address: [address] [place] [address] Performed By: #### 3 016-3, 94296-8, 11860-1 ####[facility] LABCLIA [id number] [place] [address] [place] Anion gap [Moles/Vol] 12 mmol/L Normal 8-15 [facility] Comment on above: Order Comment: Speci men Type: BLOOD SPECIMENOrdering Facility: [facility] Address: [address] [place] [address] Performed By: #### 3 016-3, 03311-5, 37159-8 ####[facility] LABCLIA [id number] [place] [address] [place] AST [Catalytic activity/Vol] 23 U/L Normal 13-35 [facility] Comment on above: Order Comment: Speci men Type: BLOOD SPECIMENOrdering Facility: [facility] Address: [address] [place] [address] Performed By: #### 3 016-3, 38984-1, ####[facility] LABCLIA [id number] [place] [address] [place] Bilirubin [Mass/Vol] 0.4 mg/dL Normal 0.2-1.3 [facility] Comment on above: Order Comment: Speci men Type: BLOOD SPECIMENOrdering Facility: [facility] Address: [address] [place] [address] Performed By: #### 3 016-3, 97441-4, 99163-6 ####[facility] LABCLIA [id number] [place] [address] [place] Calcium [Mass/Vol] 9.9 mg/dL Normal 8.5-10.2 [facility] Comment on above: Order Comment: Speci men Type: BLOOD SPECIMENOrdering Facility: [facility] Address: [address] [place], [place] [address] Performed By: #### 3 016-3, 98129-2, 55826-4 ####[facility] LABCLIA [id number] [place] [address] [place] Chloride [Moles/Vol] 104 mmol/L Normal 98-107 [facility] Comment on above: Order Comment: Speci men Type: BLOOD SPECIMENOrdering Facility: [facility] Address: [address] [place] [address] Performed By: #### 3 016-3, 48433-6, 32265-7 ####[facility] LABCLIA [id number] [place] [address] [place] CO2 [Moles/Vol] 26 mmol/L Normal 22-30 [facility] Comment on above: Order Comment: Speci men Type: BLOOD SPECIMENOrdering Facility: [facility] Address: [address] [place] [address] Performed By: #### 3 016-3, 95731-1, 26174-2 ####[facility] LABCLIA [id number] [place] [address] [place] Creatinine [Mass/Vol] 1.09 mg/dL High 0.58-0.96 [facility] Comment on above: Order Comment: Speci men Type: BLOOD SPECIMENOrdering Facility: [facility] Address: [address] [place] [address] Performed By: #### 3 016-3, 14585-3, ####[facility] LABCLIA [id number] [place] [address] [place] Creatinine and Glomerular filtration rate.predicted panel (S/P/Bld) 50 mL/min/1.73m??? Low >=60 [facility] Comment on above: Order Comment: Speci men Type: BLOOD SPECIMENOrdering Facility: [facility] Address: [address] [place] [address] Result Comment: Aura mated Glomerular Filtration Rate [...] accurately reflect actual GFR. Performed By: #### 3 016-3, 48291-8, 89551-2 ####[facility] LABCLIA [id number] [place] [address] [place] Glucose [Mass/Vol] 110 mg/dL High 74-99 [facility] Comment on above: Order Comment: Speci men Type: BLOOD SPECIMENOrdering Facility: [facility] Address: [address] [place] [address] Result Comment: The [place] Diabetes Association (ADA) provides guidance for cutoff values for fasting glucose and random glucose. The ADA defines fasting as no caloric intake for at least 8 hours. Fasting plasma glucose results between 100 to 125 mg/dL indicate increased risk for diabetes (prediabetes).Fasting plasma glucose results greater than or equal to 126 mg/dL meet the criteria for diagnosis of diabetes. In the absence of unequivocal hyperglycemia, results should be confirmed by repeat testing. In a patient with classic symptoms of hyperglycemia or hyperglycemic crisis, random plasma glucose results greater than or equal to 200 mg/dL meet the criteria for diagnosis of diabetes.Reference: Standards of Medical Care in Diabetes 2016, [place] [employer]. Diabetes Care. 2016.39(Suppl 1). Performed By: #### 3 016-3, 86096-7, 11660-1 ####[facility] [id number] [place] [address] [place] Potassium [Moles/Vol] 4.8 mmol/L Normal 3.7-5.1 [facility] Comment on above: Order Comment: Speci men Type: BLOOD SPECIMENOrdering Facility: [facility] Address: [address] [place] [address] Performed By: #### 3 016-3, 61623-6, 06640-3 ####[facility] [id number] [place] [address] [place] Protein [Mass/Vol] 7.5 g/dL Normal 6.3-8.0 [facility] Comment on above: Order Comment: Speci men Type: BLOOD SPECIMENOrdering Facility: [facility] Address: [address] [place] [address] Performed By: #### 3 016-3, 18530-9, 27162-3 ####[facility] LABIA [id number] [place] [address] [place] Sodium [Moles/Vol] 142 mmol/L Normal 136-144 [facility] Comment on above: Order Comment: Speci men Type: BLOOD SPECIMENOrdering Facility: [facility] Address: [address] [place] [address] Performed By: #### 3 016-3, 15425-9, 14630-1 ####[facility] LABIA [id number] [place] [address] [place] Urea nitrogen [Mass/Vol] 45 mg/dL High 7-21 [facility] Comment on above: Order Comment: Speci men Type: BLOOD SPECIMENOrdering Facility: [facility] Address: [address] [place] [address] Performed By: #### 3 016-3, 48123-4, 35845-8 ####[facility] [id number] [place] [address] [place] HbA1c (Bld)on 09-06-2024 Average glucose Estimated from glycated hemoglobin (Bld) [Mass/Vol] 128 mg/dL Normal [facility] Comment on above: Order Comment: Speci men Type: BLOOD SPECIMENOrdering Facility: [facility] Address: [address] [place] [address] Result Comment: eAG: (Estimated average glucose) is a calculated value from HgbA1c and is operations support representative of the average blood glucose level in the last 2-3 month period. Performed By: #### 5 5454-3 ####[facility] [id number] [place] [address] [place] HbA1c (Bld) [Mass fraction] 6.1 % High 4.3-5.6 [facility] Comment on above: Order Comment: Speci men Type: BLOOD SPECIMENOrdering Facility: [facility] Address: [address], [place] [address] Result Comment: [place] Diabetes Association guidelines indicate that patients with HgbA1c in the range 5.7-6.4% are at increased risk for development of diabetes, and intervention by lifestyle modification may be beneficial. HgbA1c greater or equal to 6.5% is considered diagnostic of diabetes. Performed By: #### 5 5454-3 ####[facility] LABCLIA [id number] [place] [address] [place] Lipid 1996 panelon 4 Cholesterol [Mass/Vol] 138 mg/dL Normal <200 [facility] Comment on above: Order Comment: Speci men Type: BLOOD SPECIMENOrdering Facility: [facility] Address: [address] [place] [address] Result Comment: <200 mg/dL, Desirable 200-239 mg/dL, Borderline high>239 mg/dL, High Performed By: #### 3 016-3, 30621-3, 89206-0 ####[facility] LABCLIA [id number] [address] [place] Cholesterol in HDL [Mass/Vol] 68 mg/dL Normal >39 [facility] Comment on above: Order Comment: My flannery Type: BLOOD SPECIMENOrdering Facility: [facility] Address: [address] [place] [address] Result Comment: 40-5 9 mg/dL, Acceptable>59 mg/dL, High: Negative risk factor for coronary heart disease<40 mg/dL, Low: Positive risk factor for coronary heart disease Performed By: #### 3 016-3, 40136-8, 91822-2 ####[facility] LABCLIA [id number] [address] [place] Cholesterol in LDL [Mass/Vol] 50 mg/dL Normal <100 [facility] Comment on above: Order Comment: My men Type: BLOOD SPECIMENOrdering Facility: [facility] Address: [address] [place] [address] Result Comment: <100 mg/dL, Optimal 100-129 mg/dL, Near optimal/above optimal 130-159 mg/dL, Borderline high 160-189 mg/dL, High>189 mg/dL, Very highSecondary prevention optimal LDL Cholesterol levels are recommended to be < 70 mg/dL Performed By: #### 3 016-3, 37301-1, 09351-0 ####[facility] LABCLIA [id number] [place] [address] [place] Cholesterol in LDL/Cholesterol in HDL [Mass ratio] 0.74 {ratio} Normal <2.54 [facility] Comment on above: Order Comment: Speci men Type: BLOOD SPECIMENOrdering Facility: [facility] Address: [address] [place] [address] Result Comment: Refe rence:1. National Cholesterol Education Program ATP III Guideline At-A-Glance Quick Desk Reference: National Heart, Lung, and Blood Carbon. National Institutes of Health. 2001: NIH Publication No. 01-3305.2. An International Atherosclerosis Society position paper: global recommendations for the management of dyslipidemia: executive summary, Atherosclerosis. 2014: 232(2):410-413. Performed By: #### 3 016-3, 19895-7, 76922-9 ####[facility] LABIA [id number] [place] [address] [place] Cholesterol in VLDL [Mass/Vol] 20 mg/dL Normal <30 [facility] Comment on above: Order Comment: Speci men Type: BLOOD SPECIMENOrdering Facility: [facility] Address: [address] [place] [address] Performed By: #### 3 016-3, 07062-4, 79238-5 ####[facility] LABIA [id number] [place] [address] [place] Cholesterol non HDL [Mass/Vol] 70 mg/dL Normal <130 [facility] Comment on above: Order Comment: Faithi men Type: BLOOD SPECIMENOrdering Facility: [facility] Address: [address] [place] [address] Result Comment: <130 mg/dL, Optimal 130-159 mg/dL, Near optimal/above optimal 160-189 mg/dL, Borderline high 190-219 mg/dL, High>219 mg/dL, Very highSecondary prevention optimal non HDL Cholesterol levels are recommended to be <100 mg/dL Performed By: #### 3 016-3, 83387-2, ####[facility] LABCLIA [id number] [place] [address] [place] Cholesterol.total/Choles terol in HDL [Mass ratio] 2.03 {ratio} Normal <5.10 [facility] Comment on above: Order Comment: Speci men Type: BLOOD SPECIMENOrdering Facility: [facility] Address: [address] [place] [address] Performed By: #### 3 016-3, , ####[facility] LABCLIA [id number] [address] FASTING TIME 12 hrs Normal [facility] Comment on above: Order Comment: Speci men Type: BLOOD SPECIMENOrdering Facility: [facility] Address: [address] [place] [address] Performed By: #### 3 016-3, , ####[facility] LABCLIA [id number] [address] [place] Triglyceride [Mass/Vol] 98 mg/dL Normal <150 [facility] Comment on above: Order Comment: Speci men Type: BLOOD SPECIMENOrdering Facility: [facility] Address: [address] [place] [address] Result Comment: <150 mg/dL, Normal 150-199 mg/dL, Borderline high 200-499 mg/dL, High>499 mg/dL, Very high Performed By: #### 3 016-3, , ####[facility] LABCLIA [id number] [place] [address] [place] TSH SerPl-aCncon 09-06-2024 TSH Qn 3.230 m[IU]/L Normal 0.270-4.20 0 [facility] Comment on above: Order Comment: Speci men Type: BLOOD SPECIMENOrdering Facility: [facility] Address: [address] [place] [address] Performed By: #### 3 016-3, 27812-1, 48193-5 ####[facility] LABCLIA [id number] [facility] AVEN[id number] [id number] [place] CNOVon 08-30-2024 CNOV Normal [facility] XR Hand - left PA and Latera l and Obliqueon 12-07-2023 IMPRESSION: Left hand degenerative changes, 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 Chondrocalcinosis. Senior Manager Quality Assurance: JOSE ALFREDO Transcribe Date/Time: Dec 07 2023 2:43P Dictated [...] fracture or dislocation. DIVISION OF RADIOLOGY Provider, [facility] - 12/07/2023 * * *Final Report* * [...] severely involving the first CMC joint. Chondrocalcinosis. Senior Manager Quality Assurance: PSCB Transcribe Date/Time: Dec 07 2023 2:43P Dictated by : INÉS LEY MD This examination was interpreted and the report reviewed and electronically signed by: INÉS LEY MD on Dec 07 2023 2:45PM [facility] Radiology Study observation (narrative) [facility] XR Hand - left PA and Latera l and ObliqueOrdered By: Ccf Provider on 12-07-2023 [facility] MG Breast - bilateral Screen ingon 09-05-2023 IMPRESSION: No mammographic evidence of malignancy. BI-RADS: 2: Benign Recommendation: Routine mammography. Recommendation Laterality: Bilateral The current National Comprehensive Cancer Network and [place] [employer] guidelines recommend women undergo [...] The current National Comprehensive Cancer Network and [place] [employer] guidelines recommend women undergo a screening mammogram every year over the age of 40 and continue mammographic screening as long as they are in good health. Screening mammography under age 40 may occur for women who are at increased risk for breast cancer. I personally viewed and interpreted these images and I have reviewed and approved this report. [facility] Radiology Study observation (narrative) [facility] MG Breast - bilateral Screen ingOrdered By: Gian Guo on 09-05-2023 [facility] Work Phone: Basophil percentageon 2021 Creatinine [Mass/Vol] 1.0 mg/dL 0.55-1.02 [facility] Work Phone: Laboratory - Chemistry and C hemistry - challengeon 09-03-2022 GFR/1.73 sq M.predicted among non-blacks MDRD (S/P/Bld) [Vol rate/Area] 58.0000 mL/min/{1.73_m2} >60 [facility] Work Phone: MG Breast - bilateral Screen ingon 08-30-2022 IMPRESSION: No mammographic evidence of malignancy. BI-RADS: 2: Benign Recommendation: Routine mammography. Recommendation Laterality: Bilateral The current National Comprehensive Cancer Network and [place] [employer] guidelines recommend women undergo [...] The current National Comprehensive Cancer Network and [place] [employer] guidelines recommend women undergo a screening mammogram every year over the age of 40 and continue mammographic screening as long as they are in good health. Screening mammography under age 40 may occur for women who are at increased risk for breast cancer. [facility] Radiology Study observation (narrative) [facility] MG Breast - bilateral Screen ingOrdered By: Gabi Martin on 08-30-2022 [facility] Work Phone: Vital Signs Date Time Vital Sign Value Performing Clinician Facility 07-19-2025 13:11-0400 Body mass index (BMI) [Ratio] 30.42 kg/m2 ANCIENT ART CURATOR.[facility] Work Phone: [facility] 07-19-2025 13:11-0400 Body weight 73.03 kg FebN.MENTAL HEALTH CASE MANAGER Work Phone: [facility] 07-19-2025 13:11-0400 Diastolic blood pressure 72 mm[Hg] ANCIENT ART CURATOR.MENTAL HEALTH CASE MANAGER Work Phone: [facility] 07-19-2025 13:11-0400 Heart rate 49 /min Jose Older ANCIENT ART CURATOR.MENTAL HEALTH CASE MANAGER Work Phone: [facility] 07-19-2025 13:11-0400 Respiratory rate 16 /min ANCIENT ART CURATOR.MENTAL HEALTH CASE MANAGER Work Phone: [facility] 07-19-2025 13:11-0400 SaO2% (BldA) [Mass fraction] 97 % Jose Older ANCIENT ART CURATOR.MENTAL HEALTH CASE MANAGER Work Phone: [facility] 07-19-2025 13:11-0400 Systolic blood pressure 148 mm[Hg] Jose Arreola APRN.CNP Work Phone: [facility] 06-20-2025 11:01-0400 Body mass index (BMI) [Ratio] 25.86 kg/m2 Desmond Wong MD Work Phone: [facility] 06-20-2025 11:01-0400 Body weight 72.67 kg Desmond Wong MD Work Phone: [facility] 06-20-2025 11:01-0400 Diastolic blood pressure 86 mm[Hg] Desmond Wong MD Work Phone: [facility] 06-20-2025 11:01-0400 Heart rate 68 /min Desmond Wong MD Work Phone: [facility] 06-20-2025 11:01-0400 Respiratory rate 17 /min Desmond Wong MD Work Phone: [facility] 06-20-2025 11:01-0400 SaO2% (BldA) [Mass fraction] 99 % Desmond Wong MD Work Phone: [facility] 06-20-2025 11:01-0400 Systolic blood pressure 126 mm[Hg] Desmond Wong MD Work Phone: [facility] 06-07-2025 11:20-0400 Body mass index (BMI) [Ratio] 26.01 kg/m2 Meena Guerra MD Work Phone: [facility] 06-07-2025 11:20-0400 Body weight 73.08 kg Meena Guerra MD Work Phone: [facility] 06-07-2025 11:20-0400 Diastolic blood pressure 57 mm[Hg] Meena Guerra MD Work Phone: [facility] 06-07-2025 11:20-0400 Heart rate 91 /min Meena Guerra MD Work Phone: [facility] 06-07-2025 11:20-0400 Respiratory rate 16 /min Meena Guerra MD Work Phone: [facility] 06-07-2025 11:20-0400 SaO2% (BldA) [Mass fraction] 99 % Meena Guerra MD Work Phone: [facility] 06-07-2025 11:20-0400 Systolic blood pressure 96 mm[Hg] Meena Guerra MD Work Phone: [facility] 06-05-2025 09:32-0400 Body temperature 97.3 [degF] Dr. Nathan Castanon DO Work Phone: [facility] 06-05-2025 09:32-0400 Body weight 73.[address] Nathan Castanon DO Work Phone: [facility] 06-05-2025 09:32-0400 Diastolic blood pressure 83 mm[Hg] Dr. Nathan Castanon DO Work Phone: [facility] 06-05-2025 09:32-0400 Heart rate 94 /min Dr. Nathan Castanon DO Work Phone: [facility] 06-05-2025 09:32-0400 Respiratory rate 16 /min Dr. Nathan Castanon DO Work Phone: [facility] 06-05-2025 09:32-0400 Systolic blood pressure 118 mm[Hg] Dr. Nathan Castanon DO Work Phone: [facility] 05-21-2025 12:04-0400 Body height 154.9 cm Jessica Alejo MD Work Phone: [facility] 05-21-2025 12:04-0400 Body mass index (BMI) [Ratio] 35.9 kg/m2 Jessica Alejo MD Work Phone: [facility] 05-21-2025 12:04-0400 Body weight 86.18 kg Jessica Alejo MD Work Phone: [facility] 05-21-2025 12:04-0400 Diastolic blood pressure 70 mm[Hg] Jessica Alejo MD Work Phone: [facility] 05-21-2025 12:04-0400 Heart rate 94 /min Jessica Alejo MD Work Phone: [facility] 05-21-2025 12:04-0400 SaO2% (BldA) [Mass fraction] 100 % Jessica Alejo MD Work Phone: [facility] Comment on above: 2 liters 05-21-2025 12:04-0400 Systolic blood pressure 113 mm[Hg] Jessica Alejo MD Work Phone: [facility] 05-15-2025 08:06-0400 Body height 154.[address] Meena Guerra MD Work Phone: [facility] 05-15-2025 08:06-0400 Body mass index (BMI) [Ratio] 362.9 kg/m2 Dr. Meena Guerra MD Work Phone: 3(077)900-696470 [place] [address] 05-15-2025 08:06-0400 Body temperature 97.7 [degF] Dr. Meena Guerra MD Work Phone: [facility] 05-15-2025 08:06-0400 Body weight 871.[address] Meena Guerra MD Work Phone: 0(255)058-885670 [place] [address] 05-15-2025 08:06-0400 Diastolic blood pressure 58 mm[Hg] Dr. Meena Guerra MD Work Phone: [facility] 05-15-2025 08:06-0400 Heart rate 108 /min Dr. Meena Guerra MD Work Phone: [facility] 05-15-2025 08:06-0400 Inhaled oxygen flow rate 2 L/min Dr. Meena Guerra MD Work Phone: 6(187)653-563170 [place] [address] 05-15-2025 08:06-0400 Respiratory rate 18 /min Dr. Meena Guerra MD Work Phone: [facility] 05-15-2025 08:06-0400 Systolic blood pressure 106 mm[Hg] Dr. Meena Guerra MD Work Phone: 1(648)940-421880 [place] [address] 05-09-2025 09:34-0400 Body mass index (BMI) [Ratio] 37.6 kg/m2 Meena Guerra MD Work Phone: 9(637)562-493775 [place] [address] 05-09-2025 09:34-0400 Body weight 90.27 kg Meena Gurera MD Work Phone: 3(368)847-036602 [place] [address] 05-09-2025 09:34-0400 Diastolic blood pressure 65 mm[Hg] Meena Guerra MD Work Phone: 9(733)710-619502 [place] [address] 05-09-2025 09:34-0400 Heart rate 132 /min Meena Guerra MD Work Phone: 6(615)011-158402 [place] [address] 05-09-2025 09:34-0400 Respiratory rate 18 /min Meena Guerra MD Work Phone: 0(302)852-690975 [place] [address] 05-09-2025 09:34-0400 SaO2% (BldA) [Mass fraction] 96 % Meena Guerra MD Work Phone: 0(172)566-543175 [place] [address] 05-09-2025 09:34-0400 Systolic blood pressure 110 mm[Hg] Meena Guerra MD Work Phone: 9(065)535-968875 [place] [address] 05-08-2025 19:29-0400 Body temperature 98.3 [degF] Dr. Meena Guerra MD Work Phone: 8(675)976-355870 [place] [address] 05-08-2025 19:29-0400 Diastolic blood pressure 96 mm[Hg] Dr. Meena Guerra MD Work Phone: 8(852)423-610580 [place] [address] 05-08-2025 19:29-0400 Heart rate 99 /min Dr. Meena Guerra MD Work Phone: 8(091)360-689180 [place] [address] 05-08-2025 19:29-0400 Respiratory rate 18 /min Dr. Meena Guerra MD Work Phone: 8(631)085-797380 [place] [address] 05-08-2025 19:29-0400 SaO2% (BldA) [Mass fraction] 99 % Dr. Meena Guerra MD Work Phone: 6(373)747-042480 [place] [address] 05-08-2025 19:29-0400 Systolic blood pressure 126 mm[Hg] Dr. Meena Guerra MD Work Phone: 6(518)173-495980 [place] [address] 05-08-2025 17:00-0400 Inhaled oxygen flow rate 2 L/min Dr. Meena Guerra MD Work Phone: 7(310)848-073080 [place] [address] 05-08-2025 12:59-0400 Body height 154.[address] Meena Guerra MD Work Phone: 4(982)005-888880 [place] [address] 05-08-2025 09:36-0400 Body mass index (BMI) [Ratio] 38.1 kg/m2 Dr. Meena Guerra MD Work Phone: 8(100)918-468880 [place] [address] 05-08-2025 09:36-0400 Body weight 91.[address] Meena Guerra MD Work Phone: 4(274)260-616580 [place] [address] 05-08-2025 09:36-0400 Diastolic blood pressure 44 mm[Hg] Dr. Meena Guerra MD Work Phone: 4(355)552-593680 [place] [address] 05-08-2025 09:36-0400 Heart rate 92 /min Dr. Meena Guerra MD Work Phone: 7(778)828-204680 [place] [address] 05-08-2025 09:36-0400 Respiratory rate 18 /min Dr. Meena Guerra MD Work Phone: 3(708)776-826880 [place] [address] 05-08-2025 09:36-0400 Systolic blood pressure 87 mm[Hg] Dr. Meena Guerra MD Work Phone: 4(872)183-965180 [place] [address] 05-03-2025 16:17-0400 Body temperature 97.7 [degF] Dr. Meena Guerra MD Work Phone: 3(680)581-627380 [place] [address] 05-03-2025 16:17-0400 Diastolic blood pressure 68 mm[Hg] Dr. Meena Guerra MD Work Phone: 6(609)643-384980 [place] [address] 05-03-2025 16:17-0400 Heart rate 78 /min Dr. Meena Guerra MD Work Phone: 8(652)857-150180 [place] [address] 05-03-2025 16:17-0400 Inhaled oxygen flow rate 2 L/min Dr. Meena Guerra MD Work Phone: 6(256)060-088280 [place] [address] 05-03-2025 16:17-0400 Respiratory rate 18 /min Dr. Meena Guerra MD Work Phone: 3(429)230-720180 [place] [address] 05-03-2025 16:17-0400 SaO2% (BldA) [Mass fraction] 96 % Dr. Meena Guerra MD Work Phone: 3(615)316-130980 [place] [address] 05-03-2025 16:17-0400 Systolic blood pressure 108 mm[Hg] Dr. Meena Guerra MD Work Phone: 6(349)119-981980 [place] [address] 05-03-2025 03:24-0400 Body mass index (BMI) [Ratio] 40.1 kg/m2 Dr. Meena Guerra MD Work Phone: 7(135)465-968180 [place] [address] 05-03-2025 03:24-0400 Body weight 96.[address] Meena Guerra MD Work Phone: 5(669)611-079280 [place] [address] 05-02-2025 11:24-0400 Body height 154.[address] Meena Guerra MD Work Phone: 4(663)470-067080 [place] [address] 05-01-2025 15:48-0400 Inhaled oxygen concentration 97 % Dr. Meena Guerra MD Work Phone: 9(585)536-839580 [place] [address] 04-27-2025 05:46-0400 Body temperature 97.9 [degF] Dr. Meena Guerra MD Work Phone: 9(156)236-256480 [place] [address] 04-27-2025 05:46-0400 Diastolic blood pressure 79 mm[Hg] Dr. Meena Guerra MD Work Phone: 1(327)706-939580 [place] [address] 04-27-2025 05:46-0400 Heart rate 126 /min Dr. Meena Guerra MD Work Phone: 7(610)256-254380 [place] [address] 04-27-2025 05:46-0400 Respiratory rate 29 /min Dr. Meena Guerra MD Work Phone: 8(425)864-577380 [place] [address] 04-27-2025 05:46-0400 SaO2% (BldA) [Mass fraction] 99 % Dr. Meena Guerra MD Work Phone: 8(436)922-715780 [place] [address] 04-27-2025 05:46-0400 Systolic blood pressure 109 mm[Hg] Dr. Meena Guerra MD Work Phone: 9(222)880-254080 [place] [address] 04-27-2025 05:00-0400 Inhaled oxygen flow rate 2 L/min Dr. Meena Guerra MD Work Phone: 0(570)210-616680 [place] [address] 04-27-2025 02:48-0400 Inhaled oxygen concentration 2 % Dr. Meena Guerra MD Work Phone: 9(044)244-649080 [place] [address] 04-26-2025 21:15-0400 Body mass index (BMI) [Ratio] 39.7 kg/m2 Dr. Meena Guerra MD Work Phone: 4(507)645-923980 [place] [address] 04-26-2025 21:15-0400 Body weight 95.[address] Meena Guerra MD Work Phone: 5(703)346-361280 [place] [address] 04-26-2025 20:38-0400 Body height 154.[address] Meena Guerra MD Work Phone: 0(579)157-521480 [place] [address] 04-26-2025 11:24-0400 Body mass index (BMI) [Ratio] 38.7 kg/m2 Dr. Meena Guerra MD Work Phone: 3(124)923-597280 [place] [address] 04-26-2025 11:24-0400 Body weight 93.[address] Meena Guerra MD Work Phone: 3(950)546-121680 [place] [address] 04-26-2025 05:06-0400 Diastolic blood pressure 89 mm[Hg] Dr. Meena Guerra MD Work Phone: 8(266)056-177780 [place] [address] 04-26-2025 05:06-0400 Heart rate 103 /min Dr. Meena Guerra MD Work Phone: 4(853)957-792480 [place] [address] 04-26-2025 05:06-0400 Systolic blood pressure 118 mm[Hg] Dr. Meena Guerra MD Work Phone: 1(543)488-433980 [place] [address] 04-26-2025 05:00-0400 Body temperature 97.8 [degF] Dr. Meena Guerra MD Work Phone: 2(112)770-841980 [place] [address] 04-26-2025 05:00-0400 Respiratory rate 18 /min Dr. Meena Guerra MD Work Phone: 7(034)502-343780 [place] [address] 04-26-2025 05:00-0400 SaO2% (BldA) [Mass fraction] 95 % Dr. Meena Guerra MD Work Phone: 3(606)544-968080 [place] [address] 04-25-2025 10:34-0400 Body height 154.[address] Meena Guerra MD Work Phone: 9(742)238-907480 [place] [address] 04-23-2025 07:47-0400 Inhaled oxygen flow rate 2 L/min Dr. Meena Guerra MD Work Phone: 8(680)856-469780 [place] [address] 04-21-2025 15:03-0400 Inhaled oxygen concentration 30 % Dr. Meena Guerra MD Work Phone: 3(359)602-654680 [place] [address] 04-16-2025 14:09-0400 Body temperature 97.8 [degF] Dr. Meena Guerra MD Work Phone: 0(763)667-112880 [place] [address] 04-16-2025 14:09-0400 Diastolic blood pressure 78 mm[Hg] Dr. Meena Guerra MD Work Phone: 2(602)618-785180 [place] [address] 04-16-2025 14:09-0400 Heart rate 118 /min Dr. Meena Guerra MD Work Phone: 3(865)536-238680 [place] [address] 04-16-2025 14:09-0400 Respiratory rate 20 /min Dr. Meena Guerra MD Work Phone: 1(609)730-701380 [place] [address] 04-16-2025 14:09-0400 SaO2% (BldA) [Mass fraction] 94 % Dr. Meena Guerra MD Work Phone: [facility] 04-16-2025 14:09-0400 Systolic blood pressure 108 mm[Hg] Dr. Meena Guerra MD Work Phone: 2(212)619-253470 [place] [address] 04-16-2025 13:04-0400 Inhaled oxygen flow rate 2 L/min Dr. Meena Guerra MD Work Phone: 1(737)835-171770 [place] [address] 04-16-2025 11:28-0400 Body mass index (BMI) [Ratio] 38.8 kg/m2 Dr. Meena Guerra MD Work Phone: 1(806)999-477580 [place] [address] 04-16-2025 11:28-0400 Body weight 93.[address] Meena Guerra MD Work Phone: 4(110)363-161480 [place] [address] 04-16-2025 11:12-0400 Body height 154.[address] Meena Guerra MD Work Phone: 3(607)549-743080 [place] [address] 03-04-2025 09:49-0400 Body mass index (BMI) [Ratio] 35.98 kg/m2 Meena Guerra MD Work Phone: [facility] 03-04-2025 09:49-0400 Body weight 86.36 kg Meena Guerra MD Work Phone: [facility] 03-04-2025 09:49-0400 Diastolic blood pressure 87 mm[Hg] Meena Guerra MD Work Phone: [facility] 03-04-2025 09:49-0400 Heart rate 92 /min Meena Guerra MD Work Phone: [facility] 03-04-2025 09:49-0400 Respiratory rate 16 /min Meena Guerra MD Work Phone: [facility] 03-04-2025 09:49-0400 Systolic blood pressure 135 mm[Hg] Meena Guerra MD Work Phone: [facility] 01-23-2025 08:48-0500 Body height 154.[address] Meena Guerra MD Work Phone: 7(739)181-413370 [place] [address] 01-23-2025 08:48-0500 Body mass index (BMI) [Ratio] 36.6 kg/m2 Dr. Meena Guerra MD Work Phone: 7(875)311-409580 [place] [address] 01-23-2025 08:48-0500 Body weight 87.[address] Meena Guerra MD Work Phone: 8(487)902-088480 [place] [address] 01-23-2025 08:48-0500 Diastolic blood pressure 83 mm[Hg] Dr. Meena Guerra MD Work Phone: 6(280)894-096380 [place] [address] 01-23-2025 08:48-0500 Heart rate 95 /min Dr. Meena Guerra MD Work Phone: 3(514)482-742280 [place] [address] 01-23-2025 08:48-0500 Respiratory rate 18 /min Dr. Meena Guerra MD Work Phone: 3(238)432-792680 [place] [address] 01-23-2025 08:48-0500 SaO2% (BldA) [Mass fraction] 94 % Dr. Meena Guerra MD Work Phone: 4(486)731-656180 [place] [address] 01-23-2025 08:48-0500 Systolic blood pressure 134 mm[Hg] Dr. Meena Guerra MD Work Phone: 1(966)240-914270 [place] [address] 01-22-2025 15:05-0500 Body height 154.9 cm Meena Guerra MD Work Phone: 4(804)283-290375 [place] [address] 01-22-2025 15:05-0500 Body mass index (BMI) [Ratio] 36.92 kg/m2 Meena Guerra MD Work Phone: 7(094)449-972275 [place] [address] 01-22-2025 15:05-0500 Body weight 88.63 kg Meena Guerra MD Work Phone: [facility] 01-22-2025 15:05-0500 Diastolic blood pressure 68 mm[Hg] Meena Guerra MD Work Phone: 8(600)788-776875 [place] [address] 01-22-2025 15:05-0500 Heart rate 80 /min Meena Guerra MD Work Phone: 9(252)720-555375 [place] [address] 01-22-2025 15:05-0500 SaO2% (BldA) [Mass fraction] 98 % Meena Guerra MD Work Phone: 4(015)483-271575 [place] [address] 01-22-2025 15:05-0500 Systolic blood pressure 106 mm[Hg] Meena Guerra MD Work Phone: 5(460)322-511702 [place] [address] 01-11-2025 09:22-0500 Heart rate 111 /min Dr. Meena Guerra MD Work Phone: 3(578)987-099180 [place] [address] 01-11-2025 08:45-0500 Diastolic blood pressure 47 mm[Hg] Dr. Meena Guerra MD Work Phone: 0(302)903-731880 [place] [address] 01-11-2025 08:45-0500 Respiratory rate 15 /min Dr. Meena Guerra MD Work Phone: 7(495)763-611580 [place] [address] 01-11-2025 08:45-0500 SaO2% (BldA) [Mass fraction] 96 % Dr. Meena Guerra MD Work Phone: 8(910)982-091280 [place] [address] 01-11-2025 08:45-0500 Systolic blood pressure 107 mm[Hg] Dr. Meena Guerra MD Work Phone: 9(746)355-929280 [place] [address] 01-11-2025 05:15-0500 Body temperature 97.5 [degF] Dr. Meena Guerra MD Work Phone: 3(362)282-292080 [place] [address] 01-11-2025 00:26-0500 Body mass index (BMI) [Ratio] 39.2 kg/m2 Dr. Meena Guerra MD Work Phone: 5(781)101-476080 [place] [address] 01-11-2025 00:26-0500 Body weight 94.[address] Meena Guerra MD Work Phone: 3(652)858-056180 [place] [address] 01-10-2025 12:20-0500 Inhaled oxygen flow rate 2 L/min Dr. Meena Guerra MD Work Phone: 8(524)701-318480 [place] [address] 01-08-2025 08:59-0500 Diastolic blood pressure 68 mm[Hg] Meena Guerra MD Work Phone: 9(458)623-476702 [place] [address] 01-08-2025 08:59-0500 Systolic blood pressure 104 mm[Hg] Meena Guerra MD Work Phone: [facility] 01-08-2025 08:54-0500 Body mass index (BMI) [Ratio] 41.76 kg/m2 Meena Guerra MD Work Phone: [facility] 01-08-2025 08:54-0500 Body temperature 98.1 [degF] Meena Guerra MD Work Phone: [facility] 01-08-2025 08:54-0500 Body weight 100.25 kg Meena Guerra MD Work Phone: [facility] 01-08-2025 08:54-0500 Heart rate 114 /min Meena Guerra MD Work Phone: [facility] 12-22-2024 13:32-0500 Body mass index (BMI) [Ratio] 40.16 kg/m2 Mac Jarrett MD Work Phone: [facility] 12-22-2024 13:32-0500 Body temperature 97.59 [degF] Mac Jarrett MD Work Phone: [facility] 12-22-2024 13:32-0500 Body weight 96.4 kg Mac Jarrett MD Work Phone: [facility] 12-22-2024 13:32-0500 Diastolic blood pressure 91 mm[Hg] Mac Jarrett MD Work Phone: [facility] 12-22-2024 13:32-0500 Heart rate 96 /min Mac Jarrett MD Work Phone: [facility] 12-22-2024 13:32-0500 Respiratory rate 20 /min Mac Jarrett MD Work Phone: [facility] 12-22-2024 13:32-0500 SaO2% (BldA) [Mass fraction] 97 % Mac Jarrett MD Work Phone: [facility] 12-22-2024 13:32-0500 Systolic blood pressure 142 mm[Hg] Mac Jarrett MD Work Phone: [facility] 09-10-2024 13:56-0400 Body height 154.9 cm Kelly Jeong ANCIENT ART CURATOR-MENTAL HEALTH CASE MANAGER Work Phone: [facility] 09-10-2024 13:56-0400 Body mass index (BMI) [Ratio] 36.47 kg/m2 Kelly Jeong ANCIENT ART CURATOR-MENTAL HEALTH CASE MANAGER Work Phone: [facility] 09-10-2024 13:56-0400 Body weight 87.54 kg Kelly Jeong ANCIENT ART CURATOR-MENTAL HEALTH CASE MANAGER Work Phone: [phone] [address] 09-10-2024 13:56-0400 Diastolic blood pressure 62 mm[Hg] Kelly Jeong ANCIENT ART CURATOR-MENTAL HEALTH CASE MANAGER Work Phone: 7(243)[phone] [address] 09-10-2024 13:56-0400 Heart rate 84 /min Kelly Jeong ANCIENT ART CURATOR-MENTAL HEALTH CASE MANAGER Work Phone: [facility] 09-10-2024 13:56-0400 SaO2% (BldA) [Mass fraction] 97 % Kelly Jeong ANCIENT ART CURATOR-MENTAL HEALTH CASE MANAGER Work Phone: [facility] 09-10-2024 13:56-0400 Systolic blood pressure 155 mm[Hg] Kelly Jeong ANCIENT ART CURATOR-MENTAL HEALTH CASE MANAGER Work Phone: [facility] 09-10-2024 12:12-0400 Diastolic blood pressure 71 mm[Hg] Amy Scientology ANCIENT ART CURATOR-MENTAL HEALTH CASE MANAGER Work Phone: [facility] 09-10-2024 12:12-0400 Systolic blood pressure 166 mm[Hg] Amy Scientology ANCIENT ART CURATOR-MENTAL HEALTH CASE MANAGER Work Phone: [facility] 09-10-2024 12:02-0400 Body height 154.9 cm Amy Scientology ANCIENT ART CURATOR-MENTAL HEALTH CASE MANAGER Work Phone: [facility] 09-10-2024 12:02-0400 Body mass index (BMI) [Ratio] 36.54 kg/m2 Amy Carreon ANCIENT ART CURATOR-MENTAL HEALTH CASE MANAGER Work Phone: [facility] 09-10-2024 12:02-0400 Body temperature 97.3 [degF] Amy Carreon ANCIENT ART CURATOR-MENTAL HEALTH CASE MANAGER Work Phone: [facility] 09-10-2024 12:02-0400 Body weight 87.73 kg Amy Carreon ANCIENT ART CURATOR-MENTAL HEALTH CASE MANAGER Work Phone: [facility] 09-10-2024 12:02-0400 Heart rate 65 /min Amy Carreon ANCIENT ART CURATOR-MENTAL HEALTH CASE MANAGER Work Phone: [facility] 09-10-2024 12:02-0400 Respiratory rate 18 /min Amy Carreon ANCIENT ART CURATOR-MENTAL HEALTH CASE MANAGER Work Phone: [facility] 09-10-2024 12:02-0400 SaO2% (BldA) [Mass fraction] 96 % Amy Carreon ANCIENT ART CURATOR-MENTAL HEALTH CASE MANAGER Work Phone: [facility] 08-30-2024 15:03-0400 Body height 154.9 cm Meena Guerra MD Work Phone: [facility] 08-30-2024 15:03-0400 Body mass index (BMI) [Ratio] 36.32 kg/m2 Meena Guerra MD Work Phone: [facility] 08-30-2024 15:03-0400 Body weight 87.18 kg Meena Guerra MD Work Phone: [facility] 08-30-2024 15:03-0400 Diastolic blood pressure 72 mm[Hg] Meena Guerra MD Work Phone: [facility] 08-30-2024 15:03-0400 Heart rate 50 /min Meena Guerra MD Work Phone: [facility] 08-30-2024 15:03-0400 SaO2% (BldA) [Mass fraction] 99 % Meena Guerra MD Work Phone: [facility] 08-30-2024 15:03-0400 Systolic blood pressure 158 mm[Hg] Meena Guerra MD Work Phone: [facility] 04-12-2024 08:17-0400 Body mass index (BMI) [Ratio] 36.66 kg/m2 Jose Older ANCIENT ART CURATOR.MENTAL HEALTH CASE MANAGER Work Phone: [facility] 04-12-2024 08:17-0400 Body weight 88 kg Jose Older ANCIENT ART CURATOR.MENTAL HEALTH CASE MANAGER Work Phone: [facility] 04-12-2024 08:17-0400 Diastolic blood pressure 66 mm[Hg] Jose Older ANCIENT ART CURATOR.MENTAL HEALTH CASE MANAGER Work Phone: [facility] 04-12-2024 08:17-0400 Heart rate 60 /min Jose Older ANCIENT ART CURATOR.MENTAL HEALTH CASE MANAGER Work Phone: [facility] 04-12-2024 08:17-0400 Respiratory rate 16 /min Jose Older ANCIENT ART CURATOR.MENTAL HEALTH CASE MANAGER Work Phone: [facility] 04-12-2024 08:17-0400 SaO2% (BldA) [Mass fraction] 98 % Jose Older ANCIENT ART CURATOR.MENTAL HEALTH CASE MANAGER Work Phone: [facility] 04-12-2024 08:17-0400 Systolic blood pressure 134 mm[Hg] Jose Older ANCIENT ART CURATOR.MENTAL HEALTH CASE MANAGER Work Phone: [facility] 03-29-2024 11:31-0400 Diastolic blood pressure 77 mm[Hg] Jose Older ANCIENT ART CURATOR.MENTAL HEALTH CASE MANAGER Work Phone: [facility] Comment on above: BP JEFFERY AVERAGE 03-29-2024 11:31-0400 Heart rate 58 /min Jose Older ANCIENT ART CURATOR.MENTAL HEALTH CASE MANAGER Work Phone: [facility] 03-29-2024 11:31-0400 Systolic blood pressure 168 mm[Hg] Jose Older ANCIENT ART CURATOR.MENTAL HEALTH CASE MANAGER Work Phone: [facility] Comment on above: BP JEFFERY AVERAGE 03-29-2024 10:53-0400 Body mass index (BMI) [Ratio] 36.49 kg/m2 Jose Older ANCIENT ART CURATOR.MENTAL HEALTH CASE MANAGER Work Phone: [facility] 03-29-2024 10:53-0400 Body weight 87.6 kg Jose Older ANCIENT ART CURATOR.MENTAL HEALTH CASE MANAGER Work Phone: [facility] 03-29-2024 10:53-0400 Respiratory rate 16 /min Jose Older ANCIENT ART CURATOR.MENTAL HEALTH CASE MANAGER Work Phone: [facility] 03-29-2024 10:53-0400 SaO2% (BldA) [Mass fraction] 98 % Jose Older ANCIENT ART CURATOR.MENTAL HEALTH CASE MANAGER Work Phone: [facility] 01-27-2024 13:32-0500 Body height 154.9 cm Pacc 1 Work Phone: [facility] 01-27-2024 13:32-0500 Body weight 84.64 kg Pacc 1 Work Phone: [facility] 01-27-2024 13:32-0500 Diastolic blood pressure 66 mm[Hg] Pacc 1 Work Phone: [facility] 01-27-2024 13:32-0500 Heart rate 60 /min Pacc 1 Work Phone: [facility] 01-27-2024 13:32-0500 Respiratory rate 18 /min Pacc 1 Work Phone: [facility] 01-27-2024 13:32-0500 SaO2% (BldA) [Mass fraction] 97 % Pacc 1 Work Phone: [facility] 01-27-2024 13:32-0500 Systolic blood pressure 124 mm[Hg] Pacc 1 Work Phone: [facility] 09-29-2023 10:48-0500 Diastolic blood pressure 59 mm[Hg] Jose Older ANCIENT ART CURATOR.MENTAL HEALTH CASE MANAGER Work Phone: [facility] 09-29-2023 10:48-0500 Heart rate 49 /min Jose Older ANCIENT ART CURATOR.MENTAL HEALTH CASE MANAGER Work Phone: [facility] 09-29-2023 10:48-0500 Systolic blood pressure 129 mm[Hg] Jose Older ANCIENT ART CURATOR.MENTAL HEALTH CASE MANAGER Work Phone: [facility] 09-29-2023 10:12-0500 Body weight 88.91 kg Jose Older ANCIENT ART CURATOR.MENTAL HEALTH CASE MANAGER Work Phone: [facility] 09-29-2023 10:12-0500 Respiratory rate 16 /min Jose Older ANCIENT ART CURATOR.MENTAL HEALTH CASE MANAGER Work Phone: [facility] 09-29-2023 10:12-0500 SaO2% (BldA) [Mass fraction] 98 % Jose Older ANCIENT ART CURATOR.MENTAL HEALTH CASE MANAGER Work Phone: [facility] 09-05-2023 14:44-0400 Body height 154.9 cm Kelly Jeong ANCIENT ART CURATOR-MENTAL HEALTH CASE MANAGER Work Phone: [facility] 09-05-2023 14:44-0400 Body mass index (BMI) [Ratio] 37.22 kg/m2 Kelly Jeong ANCIENT ART CURATOR-MENTAL HEALTH CASE MANAGER Work Phone: [facility] 09-05-2023 14:44-0400 Body weight 89.36 kg Kelly Jeong ANCIENT ART CURATOR-MENTAL HEALTH CASE MANAGER Work Phone: [facility] 09-05-2023 14:44-0400 Diastolic blood pressure 60 mm[Hg] Kelly Jeong ANCIENT ART CURATOR-MENTAL HEALTH CASE MANAGER Work Phone: [facility] 09-05-2023 14:44-0400 Heart rate 68 /min Kelly Jeong ANCIENT ART CURATOR-MENTAL HEALTH CASE MANAGER Work Phone: [facility] 09-05-2023 14:44-0400 Systolic blood pressure 140 mm[Hg] Kelly Jeong ANCIENT ART CURATOR-MENTAL HEALTH CASE MANAGER Work Phone: [facility] 01-24-2023 11:02-0500 Body height 154.9 cm Aubrey Warren DO Work Phone: 3([phone] [address] 01-24-2023 11:02-0500 Body mass index (BMI) [Ratio] 36.6 kg/m2 Aubrey Kelley Work Phone: 3(732)[phone] [place] [address] 01-24-2023 11:02-0500 Body weight 87.86 kg Aubrey Kelley DO Work Phone: 5(756)[phone] [place] [address] 01-24-2023 11:02-0500 Diastolic blood pressure 72 mm[Hg] Aubrey Kelley Work Phone: 9(294)[phone] [place] [address] 01-24-2023 11:02-0500 Heart rate 78 /min Aubrey Kelley DO Work Phone: 4(100)[phone] [place] [address] 01-24-2023 11:02-0500 SaO2% (BldA) [Mass fraction] 98 % Aubrey Kelley DO Work Phone: 0(950)[phone] [place] [address] 01-24-2023 11:02-0500 Systolic blood pressure 148 mm[Hg] Aubrey Kelley Work Phone: 6([phone])[phone] [place] [address] 10-28-2022 12:18-0500 Diastolic blood pressure 65 mm[Hg] Meena Guerra MD Work Phone: [facility] 10-28-2022 12:18-0500 Systolic blood pressure 128 mm[Hg] Meena Guerra MD Work Phone: [facility] 10-28-2022 12:08-0500 Body weight 91.17 kg Meena Guerra MD Work Phone: [facility] 10-28-2022 12:08-0500 Heart rate 61 /min Meena Guerra MD Work Phone: [facility] 10-28-2022 12:08-0500 Respiratory rate 16 /min Meena Guerra MD Work Phone: [facility] 10-28-2022 12:08-0500 SaO2% (BldA) [Mass fraction] 98 % Meena Guerra MD Work Phone: [facility] 08-31-2022 09:20-0400 Body height 154.94 cm [facility] Work Phone: 08-31-2022 09:20-0400 Body mass index (BMI) [Ratio] 39.6 kg/m2 [facility] Work Phone: 08-31-2022 09:20-0400 Body temperature 97.8 [degF] [facility] Work Phone: 08-31-2022 09:20-0400 Body weight 95.25 kg [facility] Work Phone: 08-31-2022 09:20-0400 Diastolic blood pressure 69 mm[Hg] [facility] Work Phone: 08-31-2022 09:20-0400 Heart rate 51 /min [facility] Work Phone: 08-31-2022 09:20-0400 Systolic blood pressure 142 mm[Hg] [facility] Work Phone: 04-06-2022 13:27-0400 Diastolic blood pressure 74 mm[Hg] Mi Nurse Work Phone: [facility] 04-06-2022 13:27-0400 Heart rate 68 /min Mi Nurse Work Phone: [facility] 04-06-2022 13:27-0400 Systolic blood pressure 126 mm[Hg] Mi Nurse Work Phone: [facility] 03-22-2022 10:45-0400 Diastolic blood pressure 80 mm[Hg] Meena Guerra MD Work Phone: [facility] 03-22-2022 10:45-0400 Systolic blood pressure 146 mm[Hg] Meena Guerra MD Work Phone: [facility] 03-22-2022 09:51-0400 Body height 157.5 cm Meena Guerra MD Work Phone: [facility] 03-22-2022 09:51-0400 Body temperature 98.2 [degF] Meena Guerra MD Work Phone: [facility] 03-22-2022 09:51-0400 Body weight 95.25 kg Meena Guerra MD Work Phone: [facility] 03-22-2022 09:51-0400 Heart rate 76 /min Meena Guerra MD Work Phone: [facility] 03-22-2022 09:51-0400 Respiratory rate 14 /min Meena Guerra MD Work Phone: [facility] 03-22-2022 09:51-0400 SaO2% (BldA) [Mass fraction] 98 % Meena Guerra MD Work Phone: [facility] Encounters Encounter Date Encounter Type Care Provider Facility Start: 07-19-2025 End: 07-19-2025 ambulatory Bharati Lewis RN NURSE AFTER SCHOOL PROGRAM COORDINATOR Comment on above: Bradycardia Start: 07-19-2025 End: 07-19-2025 Patient encounter procedure Maria M Whalen MA [facility] Comment on above: Population Health Na vigation Outreach ([facility] - [facility] ) Start: 07-19-2025 End: 07-19-2025 Patient encounter status Nayla Tay DO Work Phone: [facility] Work Phone: Start: 07-19-2025 End: 07-19-2025 Office outpatient visit 25 minutes Jose Arreola APRN.CNP Work Phone: [facility] [place] Comment on above: Bradycardia (Primary Dx); Persistent atrial fibrillation (HCC); Essential hypertension Start: 07-15-2025 ambulatory Meena Guerra Facility:[facility] Start: 07-04-2025 End: 07-04-2025 ambulatory Senait Waggoner RN Work Phone: Compliance Aide Management Comment on above: Initial enrollment o [facility] Start: 07-03-2025 End: 07-03-2025 ambulatory Meena Guerra MD Work Phone: [facility] Comment on above: Allied Health Visit (Medication Adherence Outreach ) Start: 07-02-2025 End: 07-02-2025 Telephone encounter Desmond Wong MD Work Phone: Pulmonary Medicine Comment on above: Orders (Appt and CXR ); Appointment (Needs appt and CXR for follow up) Start: 06-27-2025 End: 06-27-2025 [facility] Start: 06-27-2025 End: 06-27-2025 ambulatory KAYLA VALENZUELAYN Facility:[facility] Start: 06-20-2025 End: 06-20-2025 Subsequent hospital visit by physician Marta [facility] [place] Work Phone: Radiology Comment on above: Pleural effusion [J9 0] Start: 06-20-2025 End: 06-20-2025 Patient encounter procedure Desmond Wong MD Work Phone: Pulmonary Medicine Comment on above: Pleural effusion (Pr imary Dx); Chronic diastolic CHF (congestive heart failure) (HCC); Chronic atrial fibrillation (HCC); Stage 4 chronic kidney disease (HCC) Start: 06-20-2025 End: 06-20-2025 ambulatory DESMOND WONG Facility:[facility] Start: 06-11-2025 End: 06-11-2025 Patient Outreach Senait Waggoner RN Work Phone: Compliance Aide Management Comment on above: Transition Of Care W eekly phone contact (Recurring) for Transitional Care Management Start: 06-10-2025 End: 06-11-2025 Telephone encounter Meena Guerra MD Work Phone: [facility] Comment on above: Longterm Upda te Start: 06-07-2025 End: 06-07-2025 Office outpatient visit 40 minutes Meena Guerra MD Work Phone: [facility] Comment on above: Hospital discharge f ollow-up (Primary Dx); Chronic heart failure with preserved ejection fraction (HCC); Nonrheumatic mitral valve regurgitation; Nonrheumatic tricuspid valve regurgitation; Persistent atrial fibrillation (HCC); Type 2 diabetes mellitus without complication, without long-term current use of insulin (HCC); Essential hypertension; Hyperlipidemia, unspecified hyperlipidemia type; Diabetic polyneuropathy associated with type 2 diabetes mellitus (HCC); 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lbuminuria, without long-term current use of insulin (HCC); Lipodermatosclerosis; Stage 3a chronic kidney disease (HCC); Acquired hypothyroidism; Hx of TB skin testing Start: 06-07-2025 End: 06-07-2025 [facility] Facility:[facility] Start: 06-06-2025 End: 06-06-2025 [facility] Facility:[facility] Start: 06-05-2025 End: 06-05-2025 Patient encounter procedure Marysol Triplett [facility] Work Phone: [facility] Comment on above: Controlled type 2 di abetes mellitus with microalbuminuria, without long-term current use of insulin (HCC) (Primary Dx) Start: 06-05-2025 End: 06-05-2025 Telemedicine consultation with patient Marysol Triplett [facility] Work Phone: [facility] Start: 06-05-2025 End: 06-05-2025 [facility] Facility:[facility] Start: 06-05-2025 Ann Slater RESIN MAKER-C -[facility] Start: 06-05-2025 End: 06-20-2025 Ann Slater RESIN MAKER-C -Cardiovascular Services Work Phone: Start: 06-05-2025 End: 06-20-[address] Nathan Castanon DO Work Phone: -Cardiovascular Services Start: 05-29-2025 End: 05-30-2025 Telephone encounter Meena Guerra MD Work Phone: [facility] [place] Comment on above: Home Health PT-Plan of Care Start: 05-28-2025 End: 05-28-2025 ambulatory Senait Waggoner RN Work Phone: Compliance Aide Management Comment on above: Rn House Supervisor - O ther (Chart review and outreach for CHF GDMT Care Path) Transition Of Care I nitial phone contact for Transitional Care Management Start: 05-28-2025 End: 05-30-2025 Telephone encounter Meena Guerra MD Work Phone: [facility] [place] Comment on above: Home Care Management Start: 05-27-2025 End: 05-27-2025 Telephone encounter Kayla Mena MD Work Phone: Cardiology Comment on above: Post Dc Program Call - Fyi Start: 05-22-2025 End: 05-22-2025 ambulatory Marysol Triplett [facility] Work Phone: [facility] Start: 05-22-2025 End: 05-22-2025 Evaluation and management of inpatient Brenda Robles RN Work Phone: Compliance Aide Management Comment on above: Transition Of Care ( TCM Inpatient reach in ) Start: 05-22-2025 End: 05-22-2025 Patient encounter procedure Marysol Triplett [facility] Work Phone: [facility] Comment on above: Appointment Cancelle d Start: 05-21-2025 End: 05-27-2025 Evaluation and management of inpatient KAYLA MENA Facility:[facility] Start: 05-21-2025 End: 05-21-2025 Orders Only Jessica Alejo MD Work Phone: Cardiology Comment on above: Acute decompensated heart failure (HCC) Acute diastolic agustín estive heart failure (HCC) (Primary Dx); Recurrent pleural effusion; Persistent atrial fibrillation (HCC); 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; Stage 3a chronic kidney disease (HCC); Mitral valve annular calcification; Biatrial enlargement; Essential hypertension; Diabetic polyneuropathy associated with type 2 diabetes mellitus (HCC); BMI 35.0-35.9,adult Start: 05-20-2025 End: 05-20-2025 Telephone encounter Meena Guerra MD Work Phone: [facility] Comment on above: Patient Update; Medi cation Problem; Home Health Point of Care Results Start: 05-17-2025 End: 05-17-2025 Telemedicine consultation with patient Meena Guerra MD Work Phone: [facility] [place] Start: 05-17-2025 End: 05-17-2025 ambulatory Meena Guerra MD Work Phone: [facility] [place] Comment on above: Type 2 diabetes cecilio itus without complication, without long- term current use of insulin (HCC) (Primary Dx); Acute diastolic heart failure (HCC); Stage 3b chronic kidney disease (HCC); On home oxygen therapy; Morbid (severe) obesity due to excess calories (HCC); Essential hypertension; Lipodermatosclerosis Start: 05-15-2025 End: 05-15-2025 Telephone encounter Meena Guerra MD Work Phone: [facility] [place] Comment on above: Consult Weekly phone contact (Recurring) for Transitional Care Management Start: 05-15-2025 Ann MANNC -A HF [facility] Start: 05-15-2025 End: 05-20-2025 [facility]VARADO [facility] Work Phone: Start: 05-15-2025 End: 05-20-2025 ambulatory Stacey Lopez RN Work Phone: Compliance Aide Management Start: 05-13-2025 End: 05-13-2025 Telephone encounter Meena Guerra MD Work Phone: [facility] [place] Comment on above: update with bp and h eart rate Start: 05-10-2025 End: 05-15-2025 Telephone encounter Meena Guerra MD Work Phone: [facility] [place] Comment on above: Home Care Management ; Medication questions; Dressing instructions for seeping legs Start: 05-10-2025 End: 05-10-2025 Office outpatient visit 25 minutes Meena Guerra MD Work Phone: [facility] [place] Comment on above: Acute diastolic hear t failure (HCC) (Primary Dx); Atrial fibrillation, unspecified type (HCC); Type 2 diabetes mellitus without complication, without long-term current use of insulin (HCC); Essential (primary) hypertension; Mitral valve annular calcification; Stage 3b chronic kidney disease (HCC); Iron deficiency anemia, unspecified iron deficiency anemia type Start: 05-10-2025 End: 05-10-2025 ambulatory SELF Facility:[facility] Start: 05-09-2025 End: 05-09-2025 ambulatory MEENA GUERRA Facility:[facility] Start: 05-09-2025 End: 05-09-2025 Office outpatient visit 40 minutes Meena Guerra MD Work Phone: [facility] [place] Comment on above: Recurrent pleural ef fusion (Primary Dx); Persistent atrial fibrillation (HCC); Atrial fibrillation with RVR (HCC); Acute diastolic congestive heart failure (HCC); 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 Meena Guerra MD Work Phone: [facility] Work Phone: Start: 05-08-2025 End: 05-08-[address] Meena Guerra MD Work Phone: [facility] Work Phone: Start: 05-08-2025 End: 05-08-2025 Dr. Meena Guerra MD Work Phone: -Emergency Department Work Phone: Start: 05-08-2025 End: 05-08-2025 Magdi Thomas [facility] Work Phone: Start: 05-08-2025 End: 05-08-[address] Meena Guerra MD Work Phone: [facility] Work Phone: Start: 05-08-2025 End: 05-08-2025 ambulatory Magdi Thomas Facility:[facility] Start: 05-06-2025 End: 05-06-2025 Patient Outreach Stacey Lopez RN Work Phone: Compliance Aide Management Comment on above: Initial phone contac t for Transitional Care Management Longterm Plan of Care; low bp reading; PT POC Start: 05-03-2025 Jayden Friend DO -[facility] Start: 05-02-2025 Jayden Friend DO -[facility] Start: 05-02-2025 End: 05-02-2025 Telephone encounter Meena Guerra MD Work Phone: [facility] [place] Comment on above: Home Health Orders Start: 05-02-2025 Dr. Ras Blas DO [facility] Work Phone: Start: 05-01-2025 Jayden Friend DO -[facility] Start: 05-01-2025 Dr. Ras Blas DO [facility] Work Phone: Start: 04-30-2025 Jayden Friend DO -[facility] Start: 04-29-2025 End: 04-29-2025 Telephone encounter Meena Guerra MD Work Phone: [facility] [place] Comment on above: Patient Update Start: 04-29-2025 Dr. Ras Blas DO [facility] Work Phone: Start: 04-29-2025 Dr. Jae Wong DO -[facility] Start: 04-28-2025 Dr. Ras Blas DO [facility] Work Phone: Start: 04-27-2025 Jayden Friend DO -[facility] Start: 04-27-2025 End: 05-03-2025 Evaluation and management of inpatient Dr. Meena Guerra MD Work Phone: [facility] Work Phone: Start: 04-27-2025 End: 05-03-2025 Dr. Dayana Abel MD -Intensive Care Un it Work Phone: Start: 04-26-2025 End: 04-26-2025 ambulatory [facility] Start: 04-26-2025 End: 04-26-2025 [facility] Comment on above: Population Health Na vigation Outreach ([employer] [facility]) Start: 04-26-2025 End: 04-26-2025 Telephone encounter Meena Guerra MD Work Phone: [facility] [place] Comment on above: Orders Start: 04-26-2025 Dr. Amado Bailey MD -[facility] Work Phone: Start: 04-25-2025 Dr. Amado Bailey MD [facility] Work Phone: Start: 04-24-2025 End: 04-25-2025 Telephone encounter Meena Guerra MD Work Phone: [facility] [place] Comment on above: Patient Update; Zeenat ent Question Start: 04-24-2025 Dr. Kayla Fields MD [facility] Start: 04-24-2025 Dr. Amado Bailey MD [facility] Work Phone: Start: 04-23-2025 Mckayla Awad [facility] Start: 04-23-2025 Dr. Jae Wong [facility] Start: 04-23-2025 Dr. Amado Bailey MD [facility] Work Phone: Start: 04-22-2025 Dr. Kayla Fileds MD [facility] Start: 04-22-2025 Dr. Jae Wong [facility] Start: 04-22-2025 Dr. Amado Bailey MD [facility] Work Phone: Start: 04-21-2025 Dr. Aubrey De Luna MD [facility] Start: 04-21-2025 Dr. Amado Bailey MD [facility] Work Phone: Start: 04-20-2025 Dr. Amado Bailey MD [facility] Work Phone: Start: 04-19-2025 Dr. Amado Bailey MD [facility] Work Phone: Start: 04-18-2025 End: 04-22-2025 Telephone encounter Meena Guerra MD Work Phone: [facility] [place] Comment on above: Patient Update Start: 04-18-2025 Dr. Edward Le MD [facility] Start: 04-18-2025 Dr. Amado Bailey MD [facility] Work Phone: Start: 04-17-2025 Dr. Amado Bailey MD [facility] Work Phone: Start: 04-16-2025 ambulatory Meena Guerra Facility:[facility] Start: 04-16-2025 Dr. Edward Le MD -[facility] Start: 04-16-2025 ambulatory Ras Blas Facility:[facility] Start: 04-16-2025 End: 04-26-2025 Evaluation and management of inpatient Dr. Ras Blas DO -[facility] Work Phone: Start: 04-16-2025 End: 04-26-2025 Dr. Amado Bailey MD -[facility] Work Phone: Start: 03-04-2025 End: 03-04-2025 Office outpatient visit 25 minutes Meena Guerra MD Work Phone: Internal Medicine [place] Comment on above: Type 2 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); Hypothyroidism, adult; Diabetic polyneuropathy associated with type 2 diabetes mellitus (HCC); Class 2 severe obesity with serious comorbidity and body mass index (BMI) of 36.0 to 36.9 in adult, unspecified obesity type (HCC); Essential (primary) hypertension; Paroxysmal atrial fibrillation (HCC) Start: 03-04-2025 End: 03-06-2025 Refill Meena Guerra MD Work Phone: [facility] [place] Comment on above: Refill Request Start: 03-01-2025 End: 03-01-2025 ambulatory MIRANDA ROMANO Facility:[facility] Start: 03-01-2025 End: 03-01-2025 Patient encounter procedure Miranda Walkerkatharina Work Phone: Podiatry Comment on above: Onychomycosis (Prima ry Dx); Pain in toe of right foot; Pain in toe of left foot; Type 2 diabetes mellitus with peripheral neuropathy (HCC) Start: 02-28-2025 End: 04-30-2025 Follow-up encounter Meena Guerra MD Work Phone: Geriatrics Start: 02-27-2025 End: 02-27-2025 ambulatory [facility] Facility:[facility] Start: 02-21-2025 End: 02-21-2025 Refill Meena Guerra MD Work Phone: Internal Medicine [place] Comment on above: Refill Request Start: 01-31-2025 End: 01-31-[address] Meena Guerra MD Work Phone: [facility] Work Phone: Start: 01-31-2025 End: 01-31-2025 Patient encounter procedure Magdi Marquitaiter PA -Radiology, [facility] Work Phone: Start: 01-31-2025 End: 01-31-2025 Magdi Demiter PA -Radiology [facility] Work Phone: Start: 01-31-2025 End: 01-31-2025 [facility] Facility:[facility] Start: 01-23-2025 End: 01-23-[address] Meena Guerra MD Work Phone: [facility] Work Phone: Start: 01-23-2025 End: 01-23-2025 Patient encounter procedure Magdi Demiter PA -Laboratory Work Phone: Start: 01-23-2025 End: 01-23-2025 Magdi Demiter PA -Laboratory Work Phone: Start: 01-23-2025 End: 01-23-2025 Patient encounter procedure Magdi Demiter PA -[place] [facility] Work Phone: Start: 01-23-2025 End: 01-23-2025 Magdi Demiter PA -[facility] Work Phone: Start: 01-23-2025 End: 01-23-2025 ambulatory [facility] Facility:[facility] Start: 01-22-2025 End: 01-23-2025 [facility] Start: 01-22-2025 End: 01-22-2025 Office outpatient visit 25 minutes Meena Guerra MD Work Phone: Internal Medicine [place] Comment on above: Hospital discharge f ollow-up (Primary Dx); Atrial fibrillation, unspecified type (HCC); Acute on chronic 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 Supa Brumfield MD -[place] [facility] Work Phone: Start: 01-11-2025 Dr. Supa Brumfield MD - [facility] Work Phone: Start: 01-10-2025 End: 01-10-2025 ambulatory Brigitte Abel RN Work Phone: Compliance Aide Management Comment on above: YURY JEAN RN ( ED utilization review per request of payor/) Start: 01-10-2025 Non-patient / Non-visit Dr. Gerald sullivan MD -[facility] Start: 01-10-2025 Dr. Gerald Alexandra MD [facility] Start: 01-09-2025 Non-patient / Non-visit Betsy norton NP-[facility] Start: 01-09-2025 Betsy Bird NP-[facility] Start: 01-09-2025 Non-patient / Non-visit Dr. Gerald sullivan MD -[facility] Start: 01-09-2025 Dr. Gerald Alexandra MD -[facility] Start: 01-09-2025 Non-patient / Non-visit Dr. Supa Brumfield MD -[facility] Work Phone: Start: 01-09-2025 Dr. Supa Brumfield MD - [facility] Work Phone: Start: 01-08-2025 End: 01-11-2025 Evaluation and management of inpatient Dr. Supa Brumfield MD -Intensive Care Unit Work Phone: Start: 01-08-2025 End: 01-11-2025 Dr. Supa Brumfield MD -Intensive Care Uni t Work Phone: Start: 01-08-2025 End: 01-08-2025 ambulatory [facility] Facility:[facility] Start: 01-08-2025 End: 01-08-2025 Office outpatient visit 40 minutes Meena Guerra MD Work Phone: [facility] [place] Comment on above: Vasomotor rhinitis ( Primary Dx); Post-nasal drip; Obesity, Class III, BMI >= 40; Stage 3a chronic kidney disease (HCC); Type 2 diabetes mellitus with peripheral neuropathy (HCC); Weight gain; Malaise; Increased abdominal girth; Cardiac arrhythmia, unspecified cardiac arrhythmia type; Edema due to malnutrition, due to unspecified malnutrition type (HCC); Palpitations; Dyspnea, unspecified type Start: 12-22-2024 End: 12-22-2024 ambulatory [facility] Facility:[facility] Start: 12-22-2024 End: 12-22-2024 Office outpatient visit 25 minutes Mac Jarrett MD Work Phone: [facility] Comment on above: Acute non-recurrent sinusitis, unspecified location (Primary Dx) Start: 12-11-2024 End: 12-17-2024 Telephone encounter Meena Guerra MD Work Phone: [facility] [place] Comment on above: Insurance Authorizat ion Start: 10-11-2024 End: 10-11-2024 ambulatory MIRANDA ROMANO Facility:[facility] Start: 10-11-2024 End: 10-11-2024 Patient encounter procedure Miranda Walkerkatharina Work Phone: Podiatry Comment on above: Onychomycosis (Prima ry Dx); Pain in toe of right foot; Pain in toe of left foot; Type 2 diabetes mellitus with peripheral neuropathy (HCC); Venous insufficiency; Callus of foot Start: 10-05-2024 End: 10-05-2024 Refill Meena Guerra MD Work Phone: Internal Medicine [place] Comment on above: Refill Request Start: 09-25-2024 End: 09-25-2024 ambulatory [facility] Start: 09-25-2024 End: 09-25-2024 Patient encounter procedure Mariana Doan MA [facility] [place] Comment on above: Population Health Na vigation Outreach (Mauricio lema) Start: 09-17-2024 End: 09-17-2024 Telephone encounter Betsy Abad RN [facility] [place] Comment on above: Paperwork Start: 09-10-2024 End: 09-10-2024 Office outpatient visit 25 minutes Kelly Jeong ANCIENT ART CURATOR-MENTAL HEALTH CASE MANAGER Work Phone: [facility] [place] Comment on above: Leg swelling (Primar y Dx); Lipodermatosclerosis of both lower extremities; Lymphedema; Chronic venous insufficiency Start: 09-10-2024 ambulatory MEENA GUERRA Facility :[facility] Start: 09-10-2024 End: 09-10-2024 Office outpatient visit 10 minutes Amy Carreon ANCIENT ART CURATOR-MENTAL HEALTH CASE MANAGER Work Phone: Division of Surgical Oncology Comment on above: Ductal carcinoma in situ (DCIS) of right breast (Primary Dx); Encounter for screening mammogram for malignant neoplasm of breast Start: 09-10-2024 ambulatory MEENA GUERRA Facility :[facility] Start: 09-10-2024 End: 09-10-2024 Subsequent hospital visit by physician Amy Carreon ANCIENT ART CURATOR-MENTAL HEALTH CASE MANAGER Work Phone: [facility] Mammography at [facility] [place] Comment on above: Arrived Start: 09-08-2024 End: 09-10-2024 Telephone encounter Meena Guerra MD Work Phone: [facility] [place] Comment on above: Results Start: 09-06-2024 End: 09-06-2024 ambulatory MEENA GUERRA Facility:[facility] Start: 08-30-2024 End: 08-30-2024 Office outpatient visit 25 minutes Meena Guerra MD Work Phone: [facility] [place] Comment on above: Type 2 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) (Primary Dx); Essential hypertension; Hyperlipidemia, unspecified hyperlipidemia type; Acquired hypothyroidism Start: 08-30-2024 End: 08-30-2024 ambulatory MEENARA GUERRA Facility:[facility] Start: 07-03-2024 Refill Meena Chi Work Phone: [facility] [place] Comment on above: Refill Request Start: 04-23-2024 ambulatory Jose Maxwell ANCIENT ART CURATOR .MENTAL HEALTH CASE MANAGER Work Phone: [facility] [place] Comment on above: Sleep Medication Start: 04-12-2024 End: 04-12-2024 Patient encounter procedure Jose Maxwell ANCIENT ART CURATOR.MENTAL HEALTH CASE MANAGER Work Phone: [facility] [place] Comment on above: Essential hypertensi on (Primary Dx) Start: 04-04-2024 End: 04-04-2024 Patient encounter procedure Argentina Escobar PA-C Work Phone: Orthopaedics Comment on above: Carpal tunnel syndro me on left (Primary Dx) Start: 03-30-2024 End: 03-30-2024 Patient encounter procedure Miranda Romano Work Phone: Podiatry Comment on above: Onychomycosis (Prima ry Dx); Pain in toe of right foot; Pain in toe of left foot; Type 2 diabetes mellitus with peripheral neuropathy (HCC) Start: 03-29-2024 End: 03-29-2024 Patient encounter procedure Jose Arreola ANCIENT ART CURATOR.MENTAL HEALTH CASE MANAGER Work Phone: [facility] [place] Comment on above: Essential hypertensi on (Primary Dx); Hyperlipidemia, unspecified hyperlipidemia type; Type 2 diabetes mellitus with peripheral neuropathy (HCC); Hypothyroidism, adult; Function kidney decreased Start: 03-13-2024 ambulatory Meena Chi Work Phone: [facility] [place] Start: 02-29-2024 End: 02-29-2024 Nursing evaluation of patient and report Yee Lema RN Work Phone: Orthopaedics Comment on above: Post-operative state (Primary Dx) Start: 01-27-2024 End: 01-27-2024 [facility] to [facility] [place] [facility] Work Phone: [facility] Start: 01-27-2024 End: 01-27-2024 ambulatory [facility] [place] [facility] Work Phone: Pre Anesthesia Comment on above: Preoperative examina tion (Primary Dx); Diabetic polyneuropathy associated with type 2 diabetes mellitus (HCC); Essential hypertension; Peripheral venous insufficiency; 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lbuminuria, without long-term current use of insulin (HCC) (HCC); History of cancer of right breast; Lipodermatosclerosis; Carpal tunnel syndrome on left Start: 01-27-2024 End: 01-27-2024 Preprocedural examination done [facility] [place] 1 Work Phone: [facility] Work Phone: Start: 01-03-2024 Refill Meena Chi Work Phone: Internal Medicine [place] Comment on above: Refill Request Start: 12-28-2023 ambulatory Grady Wells MD, PhD Work Phone: Orthopaedics Start: 12-07-2023 End: 12-07-2023 Subsequent hospital visit by physician Marta [facility] Work Phone: Radiology Comment on above: Pain [R52] Start: 09-29-2023 End: 09-29-2023 Patient encounter procedure Jose Arreola APRN.CNP Work Phone: Internal Medicine [place] Comment on above: Essential hypertensi on (Primary Dx); Type 2 diabetes mellitus with peripheral neuropathy (HCC); Hypothyroidism, adult; Hyperlipidemia, unspecified hyperlipidemia type; Carpal tunnel syndrome of left wrist Start: 09-13-2023 ambulatory Meena Chi Work Phone: [facility] [place] Start: 09-12-2023 Refill Meena Chi Work Phone: Internal Medicine [place] Comment on above: Refill Request Start: 09-09-2023 End: 09-09-2023 Patient encounter procedure Miranda Romano Work Phone: Podiatry Comment on above: Type 2 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) (Primary Dx); Onychomycosis; Pain in toe of right foot; Pain in toe of left foot; Peripheral arterial disease (HCC) Start: 09-05-2023 End: 09-05-2023 Office outpatient visit 25 minutes Kelly Jeong APRN-MENTAL HEALTH CASE MANAGER Work Phone: [facility] [place] Comment on above: Leg swelling (Primar y Dx); Lipodermatosclerosis of both lower extremities; Lymphedema; Chronic venous insufficiency; Leg cramps; Bruit of left carotid artery Start: 09-05-2023 End: 09-05-2023 Subsequent hospital visit by physician Amy Carreon APRN-MENTAL HEALTH CASE MANAGER Work Phone: [facility] Mammography at [facility] Comment on above: Arrived Start: 04-19-2023 End: 04-19-2023 Patient encounter procedure Miranda Romano Work Phone: Podiatry Comment on above: Type 2 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) (Primary Dx); Onychomycosis; Pain in toe of right foot; Pain in toe of left foot; Callus of foot; Hammer toe of right foot; Peripheral arterial disease (HCC) Start: 03-29-2023 ambulatory Meena Chi Work Phone: Internal Medicine [facility] Start: 03-03-2023 Telephone encounter Meena pollock MD Work Phone: Internal Medicine [place] Comment on above: Handicap placard Start: 01-24-2023 End: 01-24-2023 Office outpatient new 60 minutes Aubrey Kelley DO Work Phone: [facility] [place] Comment on above: Leg swelling (Primar y Dx); Lipodermatosclerosis of both lower extremities; Chronic venous insufficiency; Lymphedema; Abdominal pannus; Leg cramps; Pain in both lower extremities; Bruit of left carotid artery Start: 12-03-2022 End: 12-03-2022 Patient encounter procedure Miranda Romano Work Phone: Podiatry Comment on above: Type 2 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) (Primary Dx); Onychomycosis; Pain in toe of right foot; Pain in toe of left foot Start: 11-29-2022 Refill Meena Chi Work Phone: Internal Medicine [place] Comment on above: Refill Request Start: 11-26-2022 Telephone encounter Miranda Agarwal harryshukri Work Phone: Podiatry Comment on above: Appointment Start: 10-28-2022 End: 10-28-2022 Patient encounter procedure Meena Guerra MD Work Phone: Internal Medicine [place] Comment on above: Hyperlipidemia, unsp ecified hyperlipidemia type; Essential hypertension Start: 10-21-2022 Refill Meena Chi Work Phone: Internal Medicine [place] Comment on above: Refill Request Start: 09-29-2022 Telephone encounter Meena pollock MD Work Phone: Internal Medicine [place] Comment on above: Consult Start: 09-03-2022 End: 09-03-2022 ambulatory [facility] Work Phone: Start: 09-03-2022 End: 09-03-2022 Patient encounter procedure [facility] Start: 08-31-2022 End: 09-20-2022 ambulatory [facility] Work Phone: Start: 08-31-2022 End: 09-20-2022 [facility] Start: 08-31-2022 [facility] Start: 08-30-2022 End: 08-30-2022 Subsequent hospital visit by physician Amy Carreon APRN-MENTAL HEALTH CASE MANAGER Work Phone: [facility] Mammography at [facility] [place] Comment on above: Arrived Start: 08-03-2022 ambulatory Meena Chi Work Phone: Internal Medicine [facility] Start: 06-29-2022 Refill Meena Chi Work Phone: [facility] [place] Comment on above: Refill Request Start: 04-06-2022 Telephone encounter Joes Arreola APRN.CNP Work Phone: Internal Medicine [place] Comment on above: Blood Pressure Check ; Patient Update Start: 04-06-2022 End: 04-06-2022 Nursing evaluation of patient and report Mi Nurse Work Phone: Family Medicine [place] Comment on above: Essential hypertensi on (Primary Dx) Start: 03-30-2022 End: 03-30-2022 Patient encounter procedure Miranda Walkerkatharina Work Phone: Podiatry Comment on above: Onychomycosis (Prima ry Dx); Type 2 diabetes mellitus with peripheral neuropathy (HCC); Pain in toe of right foot; Pain in toe of left foot Start: 03-22-2022 End: 03-22-2022 Patient encounter procedure Meena Guerra MD Work Phone: Internal Medicine [place] Comment on above: Hypothyroidism, unsp ecified type [...] diabetes mellitus (HCC); Onychomycosis Start: 03-09-2022 ambulatory Meena Chi Work Phone: [facility] [place] Start: 02-24-2018 End: 02-24-2018 Ambulatory [facility] Start: 02-27-2009 Patient encounter status Effie Carreon APRN-MENTAL HEALTH CASE MANAGER Work Phone: [facility] Work Phone: Procedures Date Procedure Procedure Detail Performing Clinician Start: 07-19-2025 End: 07-19-2025 Unlisted special service procedure/report Encounter for medical assessment Nayla Tay DO Work Phone: Comment on above: Encounter for medical assessment (Primar y Dx) Start: 07-19-2025 Ecg routine ecg w/least 12 lds i&r only Jose Arreola APRN.MENTAL HEALTH CASE MANAGER Work Phone: Start: 05-25-2025 Antibody screen MEENA GUERRA Comment on above: Order Comment: Specimen Type: BLOOD SPEC IMENOrdering Facility: [facility] Address: [address] [place] [address] Performed By: #### T SCR ####CC MAIN BLOOD BANKCLIA [id number] [address] Start: 05-23-2025 Arben GUERRA Start: 05-22-2025 Antibody screen MEENA GUERRA Comment on above: Order Comment: Specimen Type: BLOOD SPEC IMENOrdering Facility: [facility] Address: [address] [place] [address] Performed By: #### T SCR ####CC MAIN BLOOD BANKCLIA [id number] [address] Start: 05-15-[address] Meena knapp MD Work Phone: Start: 05-15-[address] Meena Guerra MD Work Phone: Start: 05-15-2025 End: 05-15-2025 Microbial culture, routine Dr. Meena morelos MD Work Phone: Start: 05-08-2025 Urine microscopy: red cells Dr. Meena knapp MD Work Phone: Start: 05-08-2025 Urnls dip stick/tablet reagent auto microscopy Dr. Meena Guerra MD Work Phone: Start: 05-08-2025 X-ray of chest, PA and lateral views Dr. Meena Guerra MD Work Phone: Start: 05-08-2025 Blood count smear mcrscp w/mnl difrntl wbc count Dr. Meena Guerra MD Work Phone: Start: 05-08-2025 Calculation of international normalized ratio Dr. Meena Guerra MD Work Phone: Start: 05-08-2025 Mean corpuscular hemoglobin concentration determination Dr. Meena Guerra MD Work Phone: Start: 05-08-2025 Nucleated red blood cell count procedure Dr. Menea Guerra MD Work Phone: Start: 05-08-2025 Platelet mean volume determination Dr. Eri Guerra MD Work Phone: Start: 05-08-[address] Meena Guerra MD Work Phone: Start: 05-08-[address] Meena Guerra MD Work Phone: Start: 05-08-2025 Blood count smear mcrscp w/mnl difrntl wbc count Dr. Meena Guerra MD Work Phone: Start: 05-08-2025 Mean corpuscular hemoglobin concentration determination Dr. Meena Guerra MD Work Phone: Start: 05-08-2025 Nucleated red blood cell count procedure Dr. Meena Guerra MD Work Phone: Start: 05-08-2025 Platelet mean volume determination Dr. Eri Guerra MD Work Phone: Start: 05-03-2025 Blood count smear mcrscp w/mnl difrntl wbc count Dr. Meena Guerra MD Work Phone: Start: 05-03-[address] Gabriela Guerra MD Work Phone: Start: 05-03-2025 Mean corpuscular hemoglobin concentration determination Dr. Meena Guerra MD Work Phone: Start: 05-03-2025 Nucleated red blood cell count procedure Dr. Meena Guerra MD Work Phone: Start: 05-03-2025 Platelet mean volume determination Dr. Eri Guerra MD Work Phone: Start: 05-01-[address] Meena morelos MD Work Phone: Start: 04-29-[address] Meena Guerra MD Work Phone: Start: 04-29-2025 Plain chest X-ray Dr. Meena Guerra MD Work Phone: Start: 04-27-2025 End: 04-27-[address] Meena Guerra MD Work Phone: Start: 04-26-2025 Blood count smear mcrscp w/mnl difrntl wbc count Dr. Meena Guerra MD Work Phone: Start: 04-26-2025 Calculation of international normalized ratio Dr. Meena Guerra MD Work Phone: Start: 04-26-[address] Gabriela Guerra MD Work Phone: Start: 04-26-2025 Mean corpuscular hemoglobin concentration determination Dr. Meena Guerra MD Work Phone: Start: 04-26-2025 Nucleated red blood cell count procedure Dr. Meena Guerra MD Work Phone: Start: 04-26-2025 Platelet mean volume determination Dr. Eri Guerra MD Work Phone: Start: 04-26-2025 Measurement of occult blood in stool specimen using immunoassay Dr. Meena Guerra MD Work Phone: Start: 04-26-2025 Blood count smear mcrscp w/mnl difrntl wbc count Dr. Meena Guerra MD Work Phone: Start: 04-26-[address] Gabriela Guerra MD Work Phone: Start: 04-26-2025 Mean corpuscular hemoglobin concentration determination Dr. Meena Guerra MD Work Phone: Start: 04-26-2025 Nucleated red blood cell count procedure Dr. Meena Guerra MD Work Phone: Start: 04-26-2025 Platelet mean volume determination Dr. Eri Guerra MD Work Phone: Start: 04-25-2025 X-ray of chest, PA and lateral views Dr. Meena Guerra MD Work Phone: Start: 04-24-2025 Serum inorganic phosphate measurement Dr. Meena Guerra MD Work Phone: Start: 04-22-2025 Plain chest X-ray Dr. Meena Guerra MD Work Phone: Start: 04-22-2025 Blood count leukocyte wbc automated Dr. Meena Guerra MD Work Phone: Start: 04-22-2025 Glucose measurement, body fluid Dr. Javier Guerra MD Work Phone: Start: 04-22-[address] Meena Guerra MD Work Phone: Start: 04-22-[address] Vijay Guerra MD Work Phone: Start: 04-22-[address] Meena knapp MD Work Phone: Start: 04-22-[address] Meena Guerra MD Work Phone: Start: 04-22-2025 Microbial culture, body fluid Dr. Meena Guerra MD Work Phone: Start: 04-22-2025 Calculation of international normalized ratio Dr. Meena Guerra MD Work Phone: Start: 04-22-2025 Ultrasonic guidance for thoracentesis Dr. Meena Guerra MD Work Phone: Start: 04-22-[address] Meena pollock MD Work Phone: Start: 04-22-2025 Plain chest X-ray Dr. Meena Guerra MD Work Phone: Start: 04-20-2025 Plain chest X-ray Dr. Meena Guerra MD Work Phone: Start: 04-19-2025 Plain chest X-ray Dr. Meena Guerra MD Work Phone: Start: 04-19-[address] Meena Guerra MD Work Phone: Start: 04-19-[address] Meena Guerra MD Work Phone: Start: 04-19-2025 Antibody to centromere measurement Dr. Eri Guerra MD Work Phone: Start: 04-19-2025 Antibody to extractable nuclear antigen measurement Dr. Meena Guerra MD Work Phone: Start: 04-19-2025 Antibody to WILBUR-[address] Meena Guerra MD Work Phone: Start: 04-19-2025 Antibody to lupus La protein measurement Dr. Meena Guerra MD Work Phone: Start: 04-19-2025 Antibody to SS-A measurement Dr. Meena Guerra MD Work Phone: Start: 04-19-[address] Meena mayers MD Work Phone: Start: 04-19-2025 C>3< complement assay Dr. Meena Guerra MD Work Phone: Start: 04-19-2025 Electrophoresis: [id number] Dr. Vijay Guerra MD Work Phone: Start: 04-19-2025 Electrophoresis: [id number] Dr. Vijay Guerra MD Work Phone: Start: 04-19-2025 Electrophoresis: gamma globulin Dr. Javier Guerra MD Work Phone: Start: 04-19-2025 FASHION PATTERNMAKER antibody measurement Dr. Meena mayers MD Work Phone: Start: 04-18-[address] Meena Guerra MD Work Phone: Start: 04-18-2025 Legionella pneumophila antigen assay Dr. Meena Guerra MD Work Phone: Start: 04-18-[address] Meena Guerra MD Work Phone: Start: 04-18-2025 Sars-cov-2 Dr. Meena Guerra MD Work Phone: Start: 04-18-2025 End: 04-18-2025 Streptococcus pneumoniae antigen assay Dr. Meena Guerra MD Work Phone: Start: 04-17-2025 Urea nitrogen measurement, urine Dr. Jonathan Guerra MD Work Phone: Start: 04-17-2025 Complete ultrasound of kidneys and bladder Dr. Meena Guerra MD Work Phone: Start: 04-17-2025 Ultrasonic guidance for thoracentesis Dr. Meena Guerra MD Work Phone: Start: 04-17-2025 CT of chest without contrast Dr. Meena Guerra MD Work Phone: Start: 04-17-2025 Plain chest X-ray Dr. Meena Guerra MD Work Phone: Start: 04-16-2025 Urine microscopy: red cells Dr. Meena knapp MD Work Phone: Start: 04-16-2025 Urnls dip stick/tablet reagent auto microscopy Dr. Meena Guerra MD Work Phone: Start: 04-16-[address] Meena Guerra MD Work Phone: Start: 04-16-[address] Meena Guerra MD Work Phone: Start: 04-16-2025 X-ray of chest, PA and lateral views Dr. Meena Guerra MD Work Phone: Start: 04-16-[address] Gabriela Guerra MD Work Phone: Start: 01-31-2025 X-ray of chest, PA and lateral views Dr. Meena Guerra MD Work Phone: Start: 01-23-2025 Calculation of international normalized ratio Dr. Meena Guerra MD Work Phone: Start: 01-23-2025 Evaluation of diagnostic study results Dr. Meena Guerra MD Work Phone: Start: 01-11-[address] Meena Guerra MD Work Phone: Start: 01-11-2025 Blood count smear mcrscp w/mnl difrntl wbc count Dr. Meena Guerra MD Work Phone: Start: 01-11-2025 BUN/Creatinine ratio Dr. Meena Guerra MD Work Phone: Start: 01-11-[address] Gabriela Guerra MD Work Phone: Start: 01-11-2025 Mean corpuscular hemoglobin concentration determination Dr. Meena Guerra MD Work Phone: Start: 01-11-2025 Measurement of renal function Dr. Meena Guerra MD Work Phone: Comment on above: GFR Calc Start: 01-11-2025 Nucleated red blood cell count procedure Dr. Meena Guerra MD Work Phone: Start: 01-11-2025 Platelet mean volume determination Dr. Eri Guerra MD Work Phone: Start: 01-10-2025 Assay of phosphorus inorganic Dr. Meena Guerra MD Work Phone: Start: 01-10-[address] Meena morelos MD Work Phone: Start: 01-09-2025 Blood count leukocyte wbc automated Dr. Meena Guerra MD Work Phone: Start: 01-09-[address] Meena Guerra MD Work Phone: Start: 01-09-2025 Plain chest X-ray Dr. Meena Guerra MD Work Phone: Start: 01-09-[address] Meena knapp MD Work Phone: Start: 01-09-[address] Meena Guerra MD Work Phone: Start: 01-09-2025 End: 01-09-2025 Microbial culture, body fluid Dr. Meena Guerra MD Work Phone: Start: 01-09-[address] Meena morelos MD Work Phone: Start: 01-09-2025 Albumin/Globulin ratio Dr. Meena Guerra MD Work Phone: Start: 01-09-[address] Meena Guerra MD Work Phone: Start: 01-09-[address] Meena Guerra MD Work Phone: Start: 01-08-2025 Glucose measurement, body fluid Dr. Javier Guerra MD Work Phone: Start: 01-08-2025 Lactate dehydrogenase measurement, body fluid Dr. Meena Guerra MD Work Phone: Start: 01-08-2025 Ultrasonic guidance for thoracentesis Dr. Meena Guerra MD Work Phone: Start: 01-08-2025 Plain chest X-ray Dr. Meena Guerra MD Work Phone: Start: 01-08-2025 Calculation of international normalized ratio Dr. Meena Guerra MD Work Phone: Start: 01-08-2025 Ecg routine ecg w/least 12 lds i&r only Meena Guerra MD Work Phone: Start: 09-10-2024 Screening mammography bi 2-view breast inc zuri HERNANDEZ Work Phone: Start: 03-29-2024 Adult depression screening assessment Meena Guerra MD Work Phone: Start: 12-07-2023 Radex hand minimum 3 views Grady Wells MD, PhD Work Phone: Start: 09-05-2023 Screening mammography bi 2-view breast inc zuri HERNANDEZ Work Phone: Start: 09-03-2022 MRI of brain with contrast Start: 08-30-2022 Screening mammography bi 2-view breast inc zuri HERNANDEZ Work Phone: H/O: surgery History of lumpectomy of right breast Plan of Treatment Date Care Activity Detail Author Start: 06-27-2026 Hepatitis B surface antibody level LDL Cholesterol [facility] Start: 03-01-2026 Diabetic foot examination Diabetic Foot Exam [facility] Start: 02-27-2026 Hepatitis B surface antibody level LDL Cholesterol [facility] Start: 12-09-2025 End: 12-09-2025 ambulatory 12/09/2025 10:00 AM EST Results Only [place] [facility] Draw Station [address] [facility] [place] [address] lab [facility] Draw Station Comment on above: lab Start: 12-07-2025 Hemoglobin A1c measurement HbA1C [facility] Start: 10-09-2025 Glaucoma screening Dilated Retinal Exam [facility] Start: 10-08-2025 End: 10-08-2025 Patient encounter procedure Radiology Comment on above: Pleural effusion [J90] 3 month f/u Start: 10-01-2025 End: 10-01-2025 Patient encounter procedure 10/01/2025 10:30 AM EST Office Visit Cardiology [address] [place] [address] Jessica Alejo MD [address] [place] [address] HF Cardiology Comment on above: HF Start: 09-16-2025 End: 09-16-2025 Patient encounter procedure [facility] at [facility] Start: 09-10-2025 End: 10-11-2025 MG Breast - bilateral Screening MAMMO SCREENING WITH DAVION BILATERAL Imaging Routine Ductal carcinoma in situ (DCIS) of right breast Encounter for screening mammogram for malignant neoplasm of breast Expected: 09/10/2025, Expires: 10/11/2025 [facility] Comment on above: Expected: 09/10/2025, Expires: Start: 09-10-2025 Screening for malignant neoplasm of breast MAMMOGRAM SCREENING DISCUSSION [facility] Start: 09-07-2025 End: 12-07-2025 Hemoglobin A1c in Blood HEMOGLOBIN A1C Lab Routine Type 2 diabetes mellitus without complication, without long-term current use of insulin (HCC) Expected: 09/07/2025, Expires: 12/07/2025 [facility] Work Phone: Comment on above: Expected: 09/07/2025, Expires: Start: 09-06-2025 Hepatitis B surface antibody level LDL Cholesterol [facility] Start: 09-06-2025 End: 09-06-2025 ambulatory 09/06/2025 10:00 AM EDT Results Only [facility] Draw Station [address] [place] [address] lab [facility] Draw Station Comment on above: lab Start: 08-29-2025 Hemoglobin A1c measurement HbA1C [facility] Start: 08-16-2025 End: 08-16-2025 Patient encounter procedure 08/16/2025 2:00 PM EDT Office Visit Internal Medicine [place] [address] [place] [address] Meena Guerra MD [address] [place] [address] 10 wk follow up [facility] [place] Comment on above: 10 wk follow up Start: 08-06-2025 End: 08-06-2025 Patient encounter procedure 08/06/2025 1:30 PM EDT Office Visit Podiatry [address] [place] [address] Miranda Romano [address] [place] [address] 3 mo diab nail follow up Podiatry Comment on above: 3 mo diab nail follow up Start: 08-02-2025 End: 08-02-2025 Patient encounter procedure 08/02/2025 1:00 PM EDT Office Visit Podiatry [address] [place] [address] Miranda Romano [address] [place] [address] 3 mo diab nail follow up Podiatry Comment on above: 3 mo diab nail follow up Start: 07-22-2025 Influenza vaccination Influenza Vaccine (#1) [facility] Start: 07-19-2025 End: 10-18-2025 Basic metabolic 2000 panel - Serum or Plasma [facility] Work Phone: Comment on above: Expected: 07/19/2025, Expires: Start: 07-19-2025 End: 10-18-2025 Magnesium [Mass/volume] in Serum or Plasma [facility] Comment on above: Expected: 07/19/2025, Expires: 5 Start: 07-02-2025 End: 08-01-2026 XR Chest PA and Lateral XR CHEST 2V FRONTAL/LAT Radiology Routine Pleural effusion Expected: 07/02/2025, Expires: 08/01/2026 [facility] Work Phone: Comment on above: Expected: 07/02/2025, Expires: Start: 06-27-2025 End: 06-27-2025 Patient encounter procedure 06/27/2025 12:00 PM EDT Office Visit Cardiology [address] [place] [address] Kelly Fitzpatrick APRN.MENTAL HEALTH CASE MANAGER [address] [place] [address] HF Cardiology Comment on above: HF Start: 06-20-2025 End: 06-20-2025 Patient encounter procedure 06/20/2025 11:00 AM EDT Office Visit Pulmonary Medicine [address] [place] [id number] Desmond Wong MD [address] [place] [address] Recurrent pleural effusion [J90 Pulmonary Medicine Comment on above: Recurrent pleural effusion [J90 Start: 06-07-2025 End: 06-07-2025 ambulatory 06/07/2025 1:30 PM EDT [facility] Hematology/Oncology [address] [place] [id number] 2ND FLOOR Hematology/Oncology Comment on above: 2ND FLOOR Start: 06-07-2025 End: 06-07-2025 Patient encounter procedure 06/07/2025 11:20 AM EDT Office Visit Internal Medicine [place] [address] [place] [address] Meena Guerra MD [address] [place] [address] Hospital follow up from [facility] 05/21-05/27 Acute decompensated heart failure (HCC) Internal Medicine [place] Comment on above: Hospital follow up from [facility] -05/27 Acute decompensated heart failure (HCC) Start: 06-05-2025 End: 06-05-2025 ambulatory 06/05/2025 3:00 PM EDT Infusion Center Hematology/Oncology [address] [place] [address] 2ND FLOOR Hematology/Oncology Comment on above: 2ND FLOOR Start: 06-05-2025 End: 06-05-2025 Patient encounter procedure 06/05/2025 1:00 PM EDT [facility] [address] [place] [address] [facility] [address] [place] [address] Type 2 diabetes mellitus without complication, without long-term current use of insulin (HCC) [E11.9] [facility] Comment on above: Type 2 diabetes mellitus without complic ation, without long-term current use of insulin (HCC) [E11.9] Start: 06-03-2025 End: 06-03-2025 ambulatory 06/03/2025 1:30 PM EDT Infusion Center Hematology/Oncology [address] [place] [address] 2ND FLOOR Hematology/Oncology Comment on above: 2ND FLOOR Start: 05-29-2025 End: 05-29-2025 ambulatory 05/29/2025 1:30 PM EDT Infusion Center Hematology/Oncology [address] [place] [address] 2ND FLOOR Hematology/Oncology Comment on above: 2ND FLOOR Start: 05-27-2025 End: 05-27-2025 ambulatory 05/27/2025 1:30 PM EDT Infusion Center Hematology/Oncology [address] [place] [address] 2ND FLOOR Hematology/Oncology Comment on above: 2ND FLOOR Start: 05-23-2025 End: 05-23-2025 Evaluation and management of inpatient 05/23/2025 10:40 PM EDT - 05/23/2025 11:24 PM EDT Surgery HOSP Seo Coordinator [address] [place] [address] Grady Hoff MD [address] [place] [address] RIGHT HEART CATHETERIZATION INCLUDING MEASUREMENT OF OXYGEN SATURATION AND CARDIAC OUTPUT HOSP Seo Coordinator Comment on above: RIGHT HEART CATHETERIZATION INCLUDING ME ASUREMENT OF OXYGEN SATURATION AND CARDIAC OUTPUT Start: 05-23-2025 End: 05-23-2025 Right heart cath o2 saturation & cardiac output RIGHT HEART CATHETERIZATION INCLUDING MEASUREMENT OF OXYGEN SATURATION AND CARDIAC OUTPUT Heart failure, unspecified HF chronicity, unspecified heart failure type (HCC) 05/23/2025 10:40 PM EDT CHEMICAL HANDLER Start: 05-23-2025 End: 05-23-2025 ambulatory 05/23/2025 1:00 PM EDT Procedure Cardiology [address] [place] [address] Grady Hoff MD [address] [place], [place] [id number] Cardiology Comment on above: [id number] Start: 05-22-2025 End: 05-22-2025 Patient encounter procedure 05/22/2025 2:00 PM EDT [facility] [address] [place] [address] Marysol Triplett, [facility] [address] [place] [address] Type 2 diabetes mellitus without complication, without long-term current use of insulin (HCC) [E11.9] [facility] Comment on above: Type 2 diabetes mellitus without complic ation, without long-term current use of insulin (HCC) [E11.9] Start: 05-21-2025 End: 05-21-2025 Patient encounter procedure 05/21/2025 11:15 AM EDT Office Visit Cardiology [address] [id number] Jessica Alejo MD [address] [place], [place] [id number] Acute diastolic congestive heart failure (HCC) [I50.31] Cardiology Comment on above: Acute diastolic congestive heart failure (HCC) [I50.31] Start: 05-21-2025 End: 05-21-2025 ambulatory 05/21/2025 10:45 AM EDT Procedure Cardiology [address] [id number] Recurrent pleural effusion [J90] Cardiology Comment on above: Recurrent pleural effusion [J90] Start: 05-17-2025 End: 08-16-2025 Basic metabolic 2000 panel - Serum or Plasma BASIC METABOLIC PANEL Lab Routine Acute diastolic heart failure (HCC) Expected: 05/17/2025, Expires: 08/16/2025 [facility] Comment on above: Expected: 05/17/2025, Expires: Start: 05-17-2025 End: 08-16-2025 CBC W Auto Differential panel - Blood COMPLETE BLOOD COUNT AND DIFFERENTIAL Lab Routine Acute diastolic heart failure (HCC) Expected: 05/17/2025, Expires: 08/16/2025 [facility] Work Phone: Comment on above: Expected: 05/17/2025, Expires: Start: 05-17-2025 End: 05-17-2025 Follow-up encounter 05/17/2025 9:20 AM EDT [facility] [place] [address] [address] Meena Guerra MD [address] [place] [id number] Followup [facility] Medicine [place] Comment on above: Followup Start: 05-15-2025 [facility] Start: 05-15-2025 Source specific culture [facility] Start: 05-10-2025 End: 05-10-2025 Follow-up encounter 05/10/2025 10:40 AM EDT [facility] [place] [address] [place] [address] Meena Guerra MD [address] [place] [address] Followup [facility] [place] Comment on above: Followup Start: 05-09-2025 End: 08-08-2025 Basic metabolic 2000 panel - Serum or Plasma [facility] Comment on above: Expected: 05/09/2025, Expires: Start: 05-09-2025 End: 08-08-2025 Cobalamin (Vitamin B12) [Mass/volume] in Serum or Plasma [facility] Work Phone: Comment on above: Expected: 05/09/2025, Expires: Start: 05-09-2025 End: 08-08-2025 Ferritin [Mass/volume] in Serum or Plasma [facility] Comment on above: Expected: 05/09/2025, Expires: Start: 05-09-2025 End: 08-08-2025 Iron and Iron binding capacity panel - Serum or Plasma [facility] Comment on above: Expected: 05/09/2025, Expires: Start: 05-09-2025 End: 05-09-2025 Patient encounter procedure 05/09/2025 9:20 AM EDT Office Visit Internal Medicine [place] [address] [place] [address] Meena Guerra MD [address] [place] [address] [facility] Hospital Follow Up Discharged 05/03/2025 [facility] [place] Comment on above: [facility] Follow Up Discharged 2024 Start: 05-08-2025 End: 05-08-2025 [facility] Start: 05-08-2025 End: 05-08-2025 [facility] Start: 05-08-2025 Evaluation of diagnostic study results [facility] Start: 05-03-2025 Patient discharge [facility] Start: 05-02-2025 Referral to service [facility] Start: 04-30-2025 Administration of blood product [facility] Start: 04-29-2025 Oxygen therapy [facility] Start: 04-29-2025 End: 04-29-2025 Patient encounter procedure [facility] [place] Comment on above: 2 month f/u [facility] Hospital Follow Up Discharged 04/26/2025 Start: 04-28-2025 [facility] Start: 04-27-2025 [facility] Start: 04-27-2025 [facility] Start: 04-27-2025 [facility] Start: 04-27-2025 [facility] Start: 04-27-2025 Application of intermittent pneumatic compression device [facility] Start: 04-27-2025 Following clinical pathway protocol [facility] Start: 04-27-2025 Assessment of risk of venous thromboembolism [facility] Start: 04-27-2025 Care regimes management [facility] Start: 04-27-2025 Fall prevention [facility] Start: 04-27-2025 Insertion of catheter into peripheral vein [facility] Start: 04-27-2025 Introduction of urinary catheter [facility] Start: 04-27-2025 Measuring intake and output [facility] Start: 04-27-2025 Notification of physician [facility] Start: 04-27-2025 Providing care according to standard [facility] Start: 04-27-2025 Provision of activity privileges [facility] Start: 04-27-2025 Referral to occupational therapist [facility] Start: 04-27-2025 Referral to service [facility] Start: 04-27-2025 Vital signs measurements [facility] Start: 04-27-2025 End: 04-27-2025 [facility] Start: 04-27-2025 End: 04-28-2025 [facility] Start: 04-27-2025 Admission procedure [facility] Start: 04-27-2025 End: 04-27-2025 [facility] Start: 04-27-2025 Referral to gastroenterology service [facility] Start: 04-27-2025 Patient referral to dietitian [facility] Start: 04-26-2025 Verification routine [facility] Start: 04-26-2025 Hospital admission, emergency, from emergency room, medical nature [facility] Start: 04-26-2025 Administration of blood product [facility] Start: 04-26-2025 End: 04-27-2025 [facility] Start: 04-26-2025 Referral to service [facility] Start: 04-26-2025 Patient discharge [facility] Start: 04-24-2025 Care planning and problem solving actions [facility] Start: 04-23-2025 [facility] Start: 04-22-2025 End: 04-22-2025 Microbial culture, body fluid [facility] Start: 04-22-2025 Anaerobic microbial culture [facility] Start: 04-22-2025 Vital signs measurements [facility] Start: 04-22-2025 Referral to mangle operator garments [facility] Start: 04-22-2025 End: 04-22-2025 Consultation [facility] Start: 04-22-2025 Inhalation therapy procedure [facility] Start: 04-22-2025 [facility] Start: 04-21-2025 [facility] Start: 04-20-2025 Referral to general surgeon [facility] Start: 04-19-2025 Vital signs measurements [facility] Start: 04-19-2025 Following clinical pathway protocol [facility] Start: 04-18-2025 [facility] Start: 04-18-2025 Care planning and problem solving actions [facility] Start: 04-18-2025 Referral to service [facility] Start: 04-18-2025 Referral to occupational therapist [facility] Start: 04-18-2025 Elevation of head of bed [facility] Start: 04-18-2025 Patient education [facility] Start: 04-18-2025 [facility] Start: 04-18-2025 Referral to mangle operator garments [facility] Start: 04-17-2025 [facility] Start: 04-17-2025 Care planning and problem solving actions [facility] Start: 04-17-2025 Referral to stationary steam engineer [facility] Start: 04-16-2025 Oxygen therapy [facility] Start: 04-16-2025 Following clinical pathway protocol [facility] Start: 04-16-2025 Assessment of risk of venous thromboembolism [facility] Start: 04-16-2025 Care regimes management [facility] Start: 04-16-2025 Elevation of affected extremity [facility] Start: 04-16-2025 Insertion of catheter into peripheral vein [facility] Start: 04-16-2025 Measuring intake and output [facility] Start: 04-16-2025 Notification of physician [facility] Start: 04-16-2025 Patient education [facility] Start: 04-16-2025 Providing care according to standard [facility] Start: 04-16-2025 Provision of activity privileges [facility] Start: 04-16-2025 End: 04-16-2025 [facility] Start: 04-16-2025 Verification routine [facility] Start: 04-16-2025 Admission procedure [facility] Start: 04-16-2025 [facility] Start: 04-16-2025 Hospital admission, emergency, from emergency room, medical nature [facility] Start: 04-16-2025 End: 04-17-2025 [facility] Start: 04-16-2025 Patient referral to dietitian [facility] Start: 04-10-2025 Hepatitis B surface antibody level LDL Cholesterol [facility] Start: 03-30-2025 Diabetic foot examination Diabetic Foot Exam [facility] Start: 03-29-2025 Anxiety Screening Anxiety Screening [facility] Start: 03-29-2025 Depression Screening Depression Screening [facility] Start: 03-07-2025 Hemoglobin A1c measurement HbA1C [facility] Start: 03-04-2025 End: 03-04-2025 Patient encounter procedure 03/04/2025 9:40 AM EDT Office Visit [facility] [place] [address] [place] [address] [place] [address] Meena Guerra MD [address] [place] [address] 6 month follow up [facility] [place] Comment on above: 6 month follow up Start: 03-01-2025 End: 03-01-2025 Patient encounter procedure Podiatry Comment on above: 3 month follow up nail care Start: 01-15-2025 End: 01-15-2025 Patient encounter procedure 01/15/2025 2:00 PM EST Office Visit Podiatry [address] [place] [address] Miranda Romano [address] [address] 3 month follow up nail care Podiatry Comment on above: 3 month follow up nail care Start: 01-11-2025 Patient discharge [facility] Start: 01-09-2025 Dietary regime [facility] Start: 01-09-2025 Vital signs measurements [facility] Start: 01-09-2025 [facility] Start: 01-09-2025 Referral to mangle operator garments [facility] Start: 01-08-2025 Application of elastic bandage [facility] Start: 01-08-2025 Elevation of affected extremity [facility] Start: 01-08-2025 Notification of physician [facility] Start: 01-08-2025 Patient education [facility] Start: 01-08-2025 Oxygen therapy [facility] Start: 01-08-2025 Ambulation without limitation [facility] Start: 01-08-2025 Assessment of risk of venous thromboembolism [facility] Start: 01-08-2025 Incentive spirometry [facility] Start: 01-08-2025 Insertion of catheter into peripheral vein [facility] Start: 01-08-2025 Measuring intake and output [facility] Start: 01-08-2025 Providing care according to standard [facility] Start: 01-08-2025 Referral to occupational therapist [facility] Start: 01-08-2025 Referral to service [facility] Start: 01-08-2025 [facility] Start: 01-08-2025 Following clinical pathway protocol [facility] Start: 01-08-2025 End: 04-09-2025 Comprehensive metabolic 2000 panel - Serum or Plasma COMPREHENSIVE METABOLIC PANEL Lab Routine Increased abdominal girth Expected: 01/08/2025, Expires: 04/09/2025 [facility] Comment on above: Expected: 01/08/2025, Expires: Start: 01-08-2025 End: 04-09-2025 Magnesium [Mass/volume] in Serum or Plasma MAGNESIUM Lab Routine Palpitations Expected: 01/08/2025, Expires: 04/09/2025 [facility] Comment on above: Expected: 01/08/2025, Expires: Start: 01-08-2025 End: 04-09-2025 Natriuretic peptide.B prohormone N-Terminal [Mass/volume] in Serum or Plasma NT PRO BNP Lab Routine Increased abdominal girth Cardiac arrhythmia, unspecified cardiac arrhythmia type Palpitations Dyspnea, unspecified type Expected: 01/08/2025, Expires: 04/09/2025 [facility] Comment on above: Expected: 01/08/2025, Expires: Start: 01-08-2025 End: 04-09-2025 Thyrotropin [Units/volume] in Serum or Plasma THYROID STIMULATING HORMONE Lab Routine Palpitations Expected: 01/08/2025, Expires: 04/09/2025 [facility] Comment on above: Expected: 01/08/2025, Expires: Start: 01-08-2025 Admission procedure [facility] Start: 01-08-2025 Patient referral to dietitian [facility] Start: 11-21-2024 Advance Directive Discussion Advance Directive Discussion [facility] Start: 11-21-2024 Medicare Advantage Annual Wellness Visit Medicare Advantage Annual Wellness Visit [facility] Start: 10-11-2024 End: 10-11-2024 Patient encounter procedure Podiatry Comment on above: 3 MONTH FOLLOW UP Start: 09-29-2024 Hepatitis B Vaccine (1 of 3 - Risk 3-dose series) Hepatitis B Vaccine (1 of 3 - Risk 3-dose series) [facility] Comment on above: Postponed from 1999 (Declined at t his time) Start: 09-29-2024 RSV Vaccine (1 - 1-dose 60+ series) RSV Vaccine (1 - 1-dose 60+ series) [facility] Comment on above: Postponed from 1999 (Declined at t his time) Start: 09-29-2024 Shingrix Vaccine (2 of 3) Shingrix Vaccine (2 of 3) [facility] Comment on above: Postponed from 10/01/2009 (Declined at t his time) Start: 09-29-2024 Urine microalbumin profile DTaP,Tdap,Td Vaccine (2 - Td or Tdap) [facility] Comment on above: Postponed from 09/20/2022 (Declined at t his time) Start: 09-28-2024 Covid-19 Vaccine () Covid-19 Vaccine () [facility] Start: 09-27-2024 Hemoglobin A1c measurement HbA1C [facility] Start: 09-22-2024 Hepatitis B surface antibody level LDL Cholesterol [facility] Start: 09-21-2024 End: 09-21-2024 Patient encounter procedure 09/21/2024 2:00 PM EDT Office Visit Podiatry [address] [place], [place] [id number] Miranda Romano [address] [facility] [place] [address] 3 MONTH FOLLOW UP Podiatry Comment on above: 3 MONTH FOLLOW UP Start: 09-18-2024 End: 09-18-2024 Patient encounter procedure 09/18/2024 11:20 AM EDT Office Visit [facility] [address] [place] [address] Meena Guerra MD [address] [place] [address] 6 month follow up [facility] Comment on above: 6 month follow up Start: 09-16-2024 Glaucoma screening Dilated Retinal Exam [facility] Start: 09-16-2024 Hepatitis C antibody, confirmatory test Dilated Retinal Exam [facility] Start: 09-10-2024 End: 09-10-2024 Patient encounter procedure [facility] at [facility] Start: 09-05-2024 Screening for malignant neoplasm of breast MAMMOGRAM SCREENING DISCUSSION [facility] Start: 07-22-2024 COVID-19 VACCINE ( season) COVID-19 VACCINE ( season) [facility] Start: 07-22-2024 COVID-19 VACCINE ( season) COVID-19 VACCINE ( season) [facility] Start: 07-22-2024 Covid-19 Vaccine ( season) Covid-19 Vaccine () [facility] Start: 07-22-2024 Influenza vaccination Influenza Vaccine (#1) [facility] Start: 04-19-2024 3 comp foot exam completed DIABETIC FOOT EXAM [facility] Start: 04-19-2024 Diabetic foot examination Diabetic Foot Exam [facility] Start: 04-12-2024 End: 07-12-2024 Comprehensive metabolic 2000 panel - Serum or Plasma COMPREHENSIVE METABOLIC PANEL Lab Routine Hyperlipidemia, unspecified hyperlipidemia type Function kidney decreased Expected: 04/12/2024 (Approximate), Expires: 07/12/2024 [facility] Work Phone: Comment on above: Expected: 04/12/2024 (Approximate), Expi res: 07/12/2024 Start: 04-12-2024 End: 04-12-2024 Patient encounter procedure 04/12/2024 8:20 AM EDT Office Visit [facility] [place] [address] [place] [address] Jose Arreola APRN.MENTAL HEALTH CASE MANAGER [address] [place], [place] [id number] 2 Week F/U-BP & lab results [facility] Comment on above: 2 Week F/U-BP & lab results Start: 04-10-2024 End: 04-10-2024 ambulatory 04/10/2024 11:00 AM EDT Results Only [facility] [address] [place] [address] [facility] Start: 04-04-2024 End: 04-04-2024 Patient encounter procedure 04/04/2024 11:40 AM EDT Office Visit Orthopaedics [address] [place] [id number] Argentina Escobar PA-C [address] [place] [address] 4wk follow up Orthopaedics Comment on above: 4wk follow up Start: 03-30-2024 End: 03-30-2024 Patient encounter procedure 03/30/2024 11:00 AM EDT Office Visit Podiatry [address] [place] [address] Miranda Romano [address] [place] [address] 3 month follow up nailcare Podiatry Comment on above: 3 month follow up nailcare Start: 03-29-2024 End: 06-28-2024 Lipid 1996 panel - Serum or Plasma LIPID PANEL BASIC Lab Routine Hyperlipidemia, unspecified hyperlipidemia type Expected: 03/29/2024, Expires: 06/28/2024 [facility] Comment on above: Expected: 03/29/2024, Expires: Start: 03-29-2024 End: 03-29-2024 Patient encounter procedure 03/29/2024 10:40 AM EDT Office Visit [facility] [address] [place] [address] Jose Arreola APRN.MENTAL HEALTH CASE MANAGER [address] [place] [address] 6 month follow up [facility] [place] Comment on above: 6 month follow up Start: 03-22-2024 Hemoglobin A1c measurement HbA1C [facility] Start: 03-22-2024 Hemoglobin A1c/Hemoglobin.total in Blood HbA1C [facility] Start: 03-13-2024 End: 06-12-2024 Basic metabolic 2000 panel - Serum or Plasma BASIC METABOLIC PANEL Lab Routine Diabetic polyneuropathy associated with type 2 diabetes mellitus (HCC) Expected: 03/13/2024, Expires: 06/12/2024 [facility] Work Phone: Comment on above: Expected: 03/13/2024, Expires: Start: 03-13-2024 End: 06-12-2024 CBC panel - Blood by Automated count COMPLETE BLOOD COUNT Lab Routine Diabetic polyneuropathy associated with type 2 diabetes mellitus (HCC) Expected: 03/13/2024, Expires: 06/12/2024 [facility] Comment on above: Expected: 03/13/2024, Expires: Start: 03-13-2024 End: 06-12-2024 Hemoglobin A1c in Blood HEMOGLOBIN A1C Lab Routine Diabetic polyneuropathy associated with type 2 diabetes mellitus (HCC) Expected: 03/13/2024, Expires: 06/12/2024 [facility] Comment on above: Expected: 03/13/2024, Expires: Start: 03-13-2024 End: 06-12-2024 Thyrotropin [Units/volume] in Serum or Plasma THYROID STIMULATING HORMONE Lab Routine Hypothyroidism Expected: 03/13/2024, Expires: 06/12/2024 [facility] Comment on above: Expected: 03/13/2024, Expires: Start: 12-19-2023 Covid-19 Vaccine () Covid-19 Vaccine () [facility] Start: 11-21-2023 Advance Directive Discussion Advance Directive Discussion [facility] Start: 11-21-2023 Behavioral Health Screening Behavioral Health Screening [facility] Start: 11-21-2023 Depression Assessment Depression Assessment [facility] Start: 10-07-2023 Hemoglobin A1c/Hemoglobin.total in Blood HBA1C [facility] Start: 09-13-2023 End: 12-13-2023 Hemoglobin A1c in Blood HGB A1C Lab Routine Diabetic polyneuropathy associated with type 2 diabetes mellitus (HCC) Expected: 09/13/2023, Expires: 12/13/2023 [facility] Work Phone: Comment on above: Expected: 09/13/2023, Expires: Start: 09-13-2023 End: 12-13-2023 Lipid 1996 panel - Serum or Plasma LIPID PANEL BASIC Lab Routine Hyperlipidemia Expected: 09/13/2023, Expires: 12/13/2023 [facility] Work Phone: Comment on above: Expected: 09/13/2023, Expires: 4 Start: 09-05-2023 End: 09-05-2023 Patient encounter procedure [facility] Start: 08-30-2023 Screening for malignant neoplasm of breast MAMMOGRAM SCREENING DISCUSSION [facility] Start: 08-29-2023 End: 08-29-2023 Patient encounter procedure 08/29/2023 Office Visit Cardiovascular Medicine Kelly Jeong, ANCIENT ART CURATOR-MENTAL HEALTH CASE MANAGER [address] [facility] [address] [place] [address] [facility] Start: 08-18-2023 Hepatitis C antibody, confirmatory test DILATED RETINAL EXAM [facility] Start: 07-22-2023 COVID-19 VACCINE ( season) COVID-19 VACCINE () [facility] Start: 07-22-2023 Influenza vaccination INFLUENZA VACCINE (#1) [facility] Start: 03-29-2023 End: 05-29-2023 CBC panel - Blood by Automated count CBC Lab Routine Diabetic polyneuropathy associated with type 2 diabetes mellitus (HCC) Expected: 03/29/2023, Expires: 05/29/2023 [facility] Work Phone: Comment on above: Expected: 03/29/2023, Expires: 3 Start: 03-29-2023 End: 05-29-2023 Hemoglobin A1c in Blood HGB A1C Lab Routine Diabetic polyneuropathy associated with type 2 diabetes mellitus (HCC) Expected: 03/29/2023, Expires: 05/29/2023 [facility] Work Phone: Comment on above: Expected: 03/29/2023, Expires: 3 Start: 03-29-2023 End: 05-29-2023 Thyrotropin [Units/volume] in Serum or Plasma TSH BLD Lab Routine Hypothyroidism Expected: 03/29/2023, Expires: 05/29/2023 [facility] Work Phone: Comment on above: Expected: 03/29/2023, Expires: 3 Start: 03-22-2023 3 comp foot exam completed DIABETIC FOOT EXAM [facility] Start: 02-10-2023 Hemoglobin A1c/Hemoglobin.total in Blood HBA1C [facility] Start: 01-24-2023 End: 01-25-2024 US.doppler Carotid arteries - bilateral VASC DUPLEX CAROTID BILATERAL Imaging Routine Leg swelling Lipodermatosclerosis of both lower extremities Chronic venous insufficiency Lymphedema Abdominal pannus Leg cramps Pain in both lower extremities Bruit of left carotid artery Expected: 01/24/2023, Expires: 01/25/2024 [facility] Comment on above: Expected: 01/24/2023, Expires: 4 Start: 11-29-2022 End: 01-29-2023 CBC W Auto Differential panel - Blood CBC + DIFF Lab Routine Essential hypertension 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lbuminuria, without long-term current use of insulin (HCC) Expected: 11/29/2022, Expires: 01/29/2023 [facility] Work Phone: Comment on above: Expected: 11/29/2022, Expires: 3 Start: 11-29-2022 End: 01-29-2023 Comprehensive metabolic 2000 panel - Serum or Plasma COMP METABOLIC PANEL Lab Routine Essential hypertension Hyperlipidemia, unspecified hyperlipidemia type 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lbuminuria, without long-term current use of insulin (HCC) Expected: 11/29/2022, Expires: 01/29/2023 [facility] Work Phone: Comment on above: Expected: 11/29/2022, Expires: 3 Start: 11-29-2022 End: 01-29-2023 Hemoglobin A1c in Blood HGB A1C Lab Routine 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lbuminuria, without long-term current use of insulin (HCC) Expected: 11/29/2022, Expires: 01/29/2023 [facility] Work Phone: Comment on above: Expected: 11/29/2022, Expires: 3 Start: 11-29-2022 End: 01-29-2023 Lipid 1996 panel - Serum or Plasma LIPID PANEL BASIC Lab Routine Hyperlipidemia, unspecified hyperlipidemia type Expected: 11/29/2022, Expires: 01/29/2023 [facility] Work Phone: Comment on above: Expected: 11/29/2022, Expires: 3 Start: 11-29-2022 End: 01-29-2023 Thyrotropin [Units/volume] in Serum or Plasma TSH BLD Lab Routine Hypothyroidism, adult Expected: 11/29/2022, Expires: 01/29/2023 [facility] Work Phone: Comment on above: Expected: 11/29/2022, Expires: 3 Start: 11-21-2022 ADVANCE DIRECTIVE DISCUSSION ADVANCE DIRECTIVE DISCUSSION [facility] Start: 11-21-2022 DEPRESSION ASSESSMENT DEPRESSION ASSESSMENT [facility] Start: 09-20-2022 Tetanus vaccination TETANUS [facility] Start: 09-20-2022 Urine microalbumin profile [facility] Start: 09-15-2022 Hemoglobin A1c/Hemoglobin.total in Blood HBA1C [facility] Start: 08-03-2022 End: 10-03-2022 Hemoglobin A1c in Blood HGB A1C Lab Routine Diabetic polyneuropathy associated with type 2 diabetes mellitus (HCC) Expected: 08/03/2022, Expires: 10/03/2022 [facility] Work Phone: Comment on above: Expected: 08/03/2022, Expires: 2 Start: 08-03-2022 End: 10-03-2022 SCHEDULE LAB TESTING SCHEDULE LAB TESTING Lab Routine Expected: 08/03/2022, Expires: 10/03/2022 [facility] Work Phone: Comment on above: Expected: 08/03/2022, Expires: 2 Start: 07-22-2022 Influenza vaccination INFLUENZA (#1) [facility] Start: 04-15-2022 COVID-19 VACCINE (5 - Booster for Moderna series) COVID-19 VACCINE (5 - Booster for Moderna series) [facility] Start: 03-20-2022 Hepatitis C antibody, confirmatory test DILATED RETINAL EXAM [facility] Start: 03-18-2022 Hepatitis B surface antibody level LDL CHOLESTEROL [facility] Start: 03-17-2022 Hemoglobin A1c/Hemoglobin.total in Blood HBA1C [facility] Start: 03-09-2022 End: 05-09-2022 CBC panel - Blood by Automated count CBC Lab Routine Diabetic polyneuropathy associated with type 2 diabetes mellitus (HCC) Expected: 03/09/2022, Expires: 05/09/2022 [facility] Work Phone: Comment on above: Expected: 03/09/2022, Expires: 2 Start: 03-09-2022 End: 05-09-2022 Hemoglobin A1c/Hemoglobin.total in Blood HGB A1C Lab Routine Diabetic polyneuropathy associated with type 2 diabetes mellitus (HCC) Expected: 03/09/2022, Expires: 05/09/2022 [facility] Work Phone: Comment on above: Expected: 03/09/2022, Expires: 2 Start: 03-09-2022 End: 05-09-2022 SCHEDULE LAB TESTING SCHEDULE LAB TESTING Lab Routine Expected: 03/09/2022, Expires: 05/09/2022 [facility] Work Phone: Comment on above: Expected: 03/09/2022, Expires: 2 Start: 03-09-2022 End: 05-09-2022 Thyrotropin [Units/volume] in Serum or Plasma TSH BLD Lab Routine Hypothyroidism Expected: 03/09/2022, Expires: 05/09/2022 [facility] Work Phone: Comment on above: Expected: 03/09/2022, Expires: 2 Start: 12-05-2021 3 comp foot exam completed DIABETIC FOOT EXAM [facility] Start: 11-21-2021 ADVANCE DIRECTIVE DISCUSSION ADVANCE DIRECTIVE DISCUSSION [facility] Start: 01-03-2021 Screening for malignant neoplasm of colon COLORECTAL CANCER SCREENING DISCUSSION [facility] Start: 02-24-2010 Potassium [Moles/volume] in Serum or Plasma POTASSIUM [facility] Start: 10-01-2009 SHINGRIX VACCINE (2 of 3) SHINGRIX VACCINE (2 of 3) [facility] Start: 10-01-2009 Zoster vaccine hzv live for subcutaneous use ZOSTER (SHINGLES) VACCINE (2 of 3) [facility] Start: 1999 Hepatitis B Vaccine (1 of 3 - Risk 3-dose series) Hepatitis B Vaccine (1 of 3 - Risk 3-dose series) [facility] Start: 1999 RSV Vaccine (1 - 1-dose 60+ series) RSV Vaccine (1 - 1-dose 60+ series) [facility] Start: 1984 Screening for malignant neoplasm of colon COLORECTAL CANCER SCREENING DISCUSSION [facility] Start: 1960 Screening for malignant neoplasm of cervix CERVICAL CANCER SCREENING DISCUSSION [facility] Start: 06-03-1940 COVID-19 VACCINE (#1) COVID-19 VACCINE (#1) [facility] Start: 1939 Hepatitis B vaccination HEP B VACCINE (1 of 3 - 3-dose series) [facility] Start: 1939 Screening for osteoporosis DEXA SCAN DISCUSSION [facility] Start: 1939 Thyroid stimulating hormone measurement TSH [facility] Antibody to lupus La protein measurement [facility] Antibody to SS-A measurement [facility] Bacteria identified in Unspecified specimen by Anaerobe culture [facility] Basic metabolic 2008 panel with ionized calcium - Serum or Plasma [facility] Bilirubin measuremen t, urine [facility] Cardioversion [facility] End: 08-30-2025 CBC panel - Blood by Automated count COMPLETE BLOOD COUNT Lab Routine Type 2 diabetes mellitus with peripheral neuropathy (HCC) Every 6 months for 12 Occurrences starting 08/30/2024 until 08/30/2025 [facility] Comment on above: Every 6 months for 12 Occurrences starti ng 08/30/2024 until 08/30/2025 End: 06-07-2026 CBC panel - Blood by Automated count COMPLETE BLOOD COUNT Lab Routine Type 2 diabetes mellitus without complication, without long-term current use of insulin (HCC) Every 6 months for 12 Occurrences starting 06/07/2025 until 06/07/2026 [facility] Comment on above: Every 6 months for 12 Occurrences starti ng 06/07/2025 until 06/07/2026 CBC W Auto Different ial panel - Blood [facility] End: 08-30-2025 Comprehensive metabolic 2000 panel - Serum or Plasma COMPREHENSIVE METABOLIC PANEL Lab Routine Type 2 diabetes mellitus with peripheral neuropathy (HCC) Every 6 months for 12 Occurrences starting 08/30/2024 until 08/30/2025 [facility] Comment on above: Every 6 months for 12 Occurrences starti ng 08/30/2024 until 08/30/2025 End: 06-07-2026 Comprehensive metabolic 2000 panel - Serum or Plasma COMPREHENSIVE METABOLIC PANEL Lab Routine Type 2 diabetes mellitus without complication, without long-term current use of insulin (HCC) Every 6 months for 12 Occurrences starting 06/07/2025 until 06/07/2026 [facility] Comment on above: Every 6 months for 12 Occurrences starti ng 06/07/2025 until 06/07/2026 DNA double strand Ab [Units/volume] in Serum [facility] ECG COMPLETE ECG COMPLETE ECG Routine Cardiac arrhythmia, unspecified cardiac arrhythmia type 01/08/2025 10:02 AM EST [facility] End: 01-08-2026 Echocardiography ECHO Cardiology OCTAVIA Increased abdominal girth Cardiac arrhythmia, unspecified cardiac arrhythmia type Edema due to malnutrition, due to unspecified malnutrition type (HCC) Palpitations 1 Occurrences starting 01/08/2025 until 01/08/2026 [facility] Work Phone: Comment on above: 1 Occurrences starting 01/08/2025 until 01/08/2026 Hematocrit [Volume Fraction] of Blood [facility] Hematocrit [Volume Fraction] of Blood [facility] Hematocrit [Volume Fraction] of Blood [facility] Hematocrit [Volume Fraction] of Blood [facility] Hematocrit [Volume Fraction] of Blood [facility] Hematocrit [Volume Fraction] of Blood [facility] Hemoglobin [Mass/volume] in Blood [facility] Hemoglobin [Mass/volume] in Blood [facility] Hemoglobin [Mass/volume] in Blood [facility] Hemoglobin [Mass/volume] in Blood [facility] Hemoglobin [Mass/volume] in Blood [facility] Hemoglobin [Mass/volume] in Blood [facility] Hemoglobin [Presence ] in Urine [facility] End: 08-30-2025 Hemoglobin A1c in Blood HEMOGLOBIN A1C Lab Routine Type 2 diabetes mellitus with peripheral neuropathy (HCC) Every 3 months for 24 Occurrences starting 08/30/2024 until 08/30/2025 [facility] Work Phone: Comment on above: Every 3 months for 24 Occurrences starti ng 08/30/2024 until 08/30/2025 End: 08-30-2025 Lipid 1996 panel - Serum or Plasma LIPID PANEL BASIC Lab Routine Type 2 diabetes mellitus with peripheral neuropathy (HCC) Every 6 months for 12 Occurrences starting 08/30/2024 until 08/30/2025 [facility] Comment on above: Every 6 months for 12 Occurrences starti ng 08/30/2024 until 08/30/2025 End: 06-07-2026 Lipid 1996 panel - Serum or Plasma LIPID PANEL, FASTING Lab Routine Type 2 diabetes mellitus without complication, without long-term current use of insulin (HCC) Every 6 months for 12 Occurrences starting 06/07/2025 until 06/07/2026 [facility] Comment on above: Every 6 months for 12 Occurrences starti ng 06/07/2025 until 06/07/2026 Measurement of keton es in urine using dipstick [facility] Microscopic observat ion [Identifier] in Body fluid by Cyto stain [facility] Microscopic observat ion [Identifier] in Unspecified specimen by Gram stain [facility] Microscopic urinalysis [facility] OUTSIDE VENDOR CARDI AC OUTPATIENT EXTENDED RHYTHM RECORDING (WITHOUT TELEMETRY) OUTSIDE VENDOR CARDIAC OUTPATIENT EXTENDED RHYTHM RECORDING (WITHOUT TELEMETRY) Holter Routine Palpitations Dyspnea, unspecified type Ordered: 01/08/2025 [facility] Comment on above: Ordered: 01/08/2025 Patient Education [facility] Work Phone: Patient referral [facility] Work Phone: pH of Urine [facility] PPD (TB INTRADERMAL [id number]) B/O PPD (TB INTRADERMAL 12819) B/O Procedures Routine Hx of TB skin testing Ordered: 06/07/2025 [facility] Comment on above: Ordered: 06/07/2025 Specific gravity of Urine [facility] End: 08-30-2025 Thyrotropin [Units/volume] in Serum or Plasma THYROID STIMULATING HORMONE Lab Routine Type 2 diabetes mellitus with peripheral neuropathy (HCC) Every 3 months for 24 Occurrences starting 08/30/2024 until 08/30/2025 [facility] Comment on above: Every 3 months for 24 Occurrences starti ng 08/30/2024 until 08/30/2025 End: 06-07-2026 Thyrotropin [Units/volume] in Serum or Plasma THYROID STIMULATING HORMONE Lab Routine Type 2 diabetes mellitus without complication, without long-term current use of insulin (HCC) Every 3 months for 24 Occurrences starting 06/07/2025 until 06/07/2026 [facility] Comment on above: Every 3 months for 24 Occurrences starti ng 06/07/2025 until 06/07/2026 Troponin T.cardiac [Mass/volume] in Serum or Plasma by High sensitivity method [facility] Urine blood test [facility] Urine culture [facility] Urine dipstick for glucose [facility] Urine dipstick for leukocyte esterase [facility] Urine dipstick for nitrite [facility] Urine dipstick for protein [facility] Urine examination [facility] Urine microscopy: epithelial cells [facility] Urine Microscopy: wh ite cells [facility] Urobilinogen [Presen ce] in Urine [facility] End: 02-07-2026 US Abdomen US ASCITES SURVEY Radiology Routine Increased abdominal girth Edema due to malnutrition, due to unspecified malnutrition type (HCC) Dyspnea, unspecified type 1 Occurrences starting 01/08/2025 until 02/07/2026 [facility] Comment on above: 1 Occurrences starting 01/08/2025 until 02/07/2026 End: 02-07-2026 US Abdomen RUQ US ABD RIGHT UPPER QUADRANT Radiology Routine Increased abdominal girth Edema due to malnutrition, due to unspecified malnutrition type (HCC) Dyspnea, unspecified type 1 Occurrences starting 01/08/2025 until 02/07/2026 [facility] Comment on above: 1 Occurrences starting 01/08/2025 until 02/07/2026 US.doppler Lower extremity vein - bilateral VASC DUPLEX VENOUS WITH REFLUX BILATERAL LOWER Imaging Routine Leg swelling Lipodermatosclerosis of both lower extremities Chronic venous insufficiency Lymphedema Abdominal pannus Leg cramps Ordered: 01/24/2023 [facility] Comment on above: Ordered: 01/24/2023 Wound microscopy, culture and sensitivities [facility] End: 07-20-2026 XR Chest PA and Lateral XR CHEST 2V FRONTAL/LAT Radiology Routine Pleural effusion 1 Occurrences starting 06/20/2025 until 07/20/2026 [facility] Work Phone: Comment on above: 1 Occurrences starting 06/20/2025 until 07/20/2026 XR Chest PA and Lateral XR CHEST 2V FRONTAL/LAT Radiology Routine Pleural effusion 06/20/2025 11:58 AM EDT [facility] Immunizations Immunization Date Immunization Notes Care Provider [facility] 08-03-2024 COVID-19 original vaccine, full dose, monovalent (MODERNA) Meena Guerra MD Work Phone: [facility] 08-03-2024 influenza, high dose seasonal, preservative-free Meena Guerra MD Work Phone: [facility] 08-03-2024 influenza virus vaccine, unspecified formulation Jessica Alejo MD Work Phone: [facility] 10-19-2023 respiratory syncytia l virus (RSV) vaccine, bivalent (ABRYSVO) Grady Wells MD, PhD Work Phone: [facility] 08-19-2023 COVID-19 vaccine, ag e 12+ yr, season (MODERNA) Jose Arreola ANCIENT ART CURATOR.MENTAL HEALTH CASE MANAGER Work Phone: [facility] 08-19-2023 influenza (HD-IIV4) vaccine, age 65+ yr, high dose, quadrivalent, PF (FLUZONE HIGH-DOSE) Jose Older ANCIENT ART CURATOR.MENTAL HEALTH CASE MANAGER Work Phone: [facility] 08-19-2023 influenza virus vaccine, unspecified formulation Meena Guerra MD Work Phone: [facility] 08-04-2022 influenza, high dose seasonal, preservative-free Meena Guerra MD Work Phone: [facility] Work Phone: 08-04-2022 influenza virus vaccine, unspecified formulation Kelly Jeong ANCIENT ART CURATOR-MENTAL HEALTH CASE MANAGER Work Phone: [facility] 02-18-2022 Covid (Moderna) Dr. Meena knapp MD Work Phone: [facility] 09-22-2021 Covid (Moderna) Dr. Meena knapp MD Work Phone: [facility] 09-21-2021 influenza, high-dose , quadrivalent vaccine (FLUZONE HIGH DOSE QUADRIVALENT) Meena Guerra MD Work Phone: [facility] Work Phone: 01-08-2021 COVID-19 vaccine, fu ll dose (MODERNA) Meena Guerra MD Work Phone: [facility] Work Phone: 12-11-2020 COVID-19 vaccine, fu ll dose (MODERNA) Meena Guerra MD Work Phone: [facility] Work Phone: 09-01-2020 influenza, high-dose , quadrivalent vaccine (FLUZONE HIGH DOSE QUADRIVALENT) Meena Guerra MD Work Phone: [facility] Work Phone: 09-24-2019 influenza, high dose seasonal, preservative-free Meena Guerra MD Work Phone: [facility] Work Phone: 08-21-2018 influenza, high dose seasonal, preservative-free Jose Arreola APRN.MENTAL HEALTH CASE MANAGER Work Phone: [facility] 09-05-2017 influenza, high dose seasonal, preservative-free Meena Guerra MD Work Phone: [facility] Work Phone: 08-25-2016 influenza, high dose seasonal, preservative-free Meena Guerra MD Work Phone: [facility] Work Phone: 10-02-2015 pneumococcal conjuga te vaccine, 13 valent Meena Guerra MD Work Phone: [facility] Work Phone: 09-01-2015 influenza, high dose seasonal, preservative-free Meena Guerra MD Work Phone: [facility] 08-23-2013 influenza virus vaccine, unspecified formulation Meena Guerra MD Work Phone: [facility] 09-20-2012 influenza virus vaccine, unspecified formulation Meena Guerra MD Work Phone: [facility] Work Phone: 09-20-2012 tetanus toxoid, redu linsey diphtheria toxoid, and acellular pertussis vaccine, adsorbed Meena Guerra MD Work Phone: [facility] Work Phone: 11-04-2009 novel [id number], preservative-free, injectable Jose Arreola ANCIENT ART CURATOR.MENTAL HEALTH CASE MANAGER Work Phone: [facility] 08-06-2009 zoster vaccine, live Meena Guerra MD Work Phone: [facility] 08-06-2009 zoster vaccine, unspecified formulation Amy Carreon ANCIENT ART CURATOR-MENTAL HEALTH CASE MANAGER Work Phone: [facility] 11-21-2005 pneumococcal polysaccharide vaccine, 23 valent Meena Guerra MD Work Phone: [facility] Work Phone: NEGATED: Highlighted row has not occurred!06-07-2025 tuberculin skin test; purified protein derivative solution, intradermal Meena Guerra MD Work Phone: [facility] Comment on above: Deferred: OTHER Payers Date Payer Category Payer Self-pay [id number] 2023 Medicare (Managed Care) HU[employer]NA M EDICARE [id number] 2023 Medicare [id number] 2016 Unknown ANTHEM BLUE CARD TRADITIONAL OOS [id number] 2016-Present [phone] [address] [place] [address] Indemnity [id number] [id number]. [id number] 2016 Unknown [id number]. 1.13.159. 2.7.3.798546.315 2004 Medicare MEDICARE MEDICAR E A AND B [id number] 2004-Present [phone] [place] [address] Medicare [id number]. 2.7.3.646733.315 2004 Medicare 1.2.840.089161. 1.13.159. 2.7.3.514802.315 1939 Unknown [id number] 2.16840.1.224730.3.579. 2.594 1939 Unknown [id number] 2.16840.1.029815.3.579. 2.594 1939 Unknown [id number] 2.16840.1.085522.3.579. 2.594 Medicare MEDICARE PART A B [id number] Unknown [id number] Unknown [id number] 2.16.840.1.132462.3.579. 2.462 Unknown [id number] 2.16.840.1.578315.3.579. 2.462 Unknown [id number] 2.16.840.1.803394.3.579. 2.462 Unknown [id number] 2.16.840.1.689701.3.579. 2.462 Unknown [id number] 2.16.840.1.332547.3.579. 2.462 Unknown [id number] 2.16.840.1.962410.3.579. 2.462 Unknown [id number] 2.16.840.1.025737.3.579. 2.462 Unknown [id number] 2..840.1.921822.3.579. 2.462 Unknown [id number] 2.16.840.1.829704.3.579. 2.462 Unknown [id number] 2.16.840.1.220241.3.579. 2.462 Unknown [id number] 2.16.840.1.739484.3.579. 2.462 Unknown [id number] 2.16.840.1.168650.3.579. 2.462 Unknown [id number] 2.16.840.1.281939.3.579. 2.462 Unknown [id number] 2.16.840.1.726284.3.579. 2.462 Unknown [id number] 2.16.840.1.850127.3.579. 2.462 Unknown [id number] 2.16.840.1.248658.3.579. 2.462 Unknown [id number] 2.16.840.1.995488.3.579. 2.462 Unknown [id number] 2.16.840.1.217431.3.579. 2.462 Unknown [id number] 2.16.840.1.660800.3.579. 2.462 Unknown [id number] 2.16.840.1.217142.3.579. 2.462 Unknown [id number] 2.16.840.1.495860.3.579. 2.462 Unknown [id number] 2.16840.1.740798.3.579. 2.462 Unknown [id number] 2.16840.1.453093.3.579. 2.462 Unknown [id number] 2.840.1.272904.3.579. 2.462 Unknown [id number] 2.840.1.062261.3.579. 2.462 Unknown [id number] 2.840.1.343628.3.579. 2.462 Unknown [id number] 2.840.1.579156.3.579. 2.462 Unknown [id number] 2.840.1.792501.3.579. 2.462 Unknown [id number] 2.840.1.617900.3.579. 2.462 Unknown [id number] 2.16840.1.206997.3.579. 2.462 Unknown [id number] 2.840.1.067517.3.579. 2.462 Unknown [id number] 2.840.1.393985.3.579. 2.462 Unknown [id number] 2.16840.1.730886.3.579. 2.462 Unknown [id number] 2.16840.1.623166.3.579. 2.462 Unknown [id number] 2.16840.1.772952.3.579. 2.462 Unknown [id number] 2.16840.1.001808.3.579. 2.462 Unknown [id number] 2.16.840.1.526669.3.579. 2.462 Unknown [id number] 2.16.840.1.801204.3.579. 2.462 Unknown [id number] 2.16.840.1.483868.3.579. 2.462 Unknown [id number] 2.16.840.1.190796.3.579. 2.462 Unknown [id number] 2.16.840.1.678823.3.579. 2.462 Unknown [id number] 2.16.840.1.413381.3.579. 2.462 Unknown [id number] 2.16.840.1.326997.3.579. 2.462 Unknown [id number] 2.16.840.1.519887.3.579. 2.462 Unknown [id number] 2.840.1.741999.3.579. 2.462 Unknown [id number] 2.840.1.211496.3.579. 2.462 Unknown [id number] 2.840.1.645943.3.579. 2.462 Unknown [id number] 2.16.840.1.079901.3.579. 2.462 Unknown [id number] 2.16.840.1.975767.3.579. 2.462 Unknown [id number] 2.16840.1.745505.3.579. 2.462 Unknown [id number] 2.16.840.1.120552.3.579. 2.462 Unknown [id number] 2.16.840.1.424419.3.579. 2.462 Unknown [id number] 2.16.840.1.679145.3.579. 2.462 Unknown [id number] 2.16.840.1.202337.3.579. 2.462 Unknown [id number] 2.16.840.1.795551.3.579. 2.462 Social History Date Type Detail Facility Start: 05-18-2011 End: 05-15-2025 Tobacco smoking status NHIS Never smoked tobacco [facility] Start: 11-04-2021 End: 07-19-2025 Alcohol intake Current drinker of alcohol (finding) [facility] Start: 08-26-2020 End: 10-25-2022 History SDOH Alcohol Frequency 1 [facility] Start: 12-15-2007 History SDOH Alcohol Comment Occasional Wine [facility] Start: 08-26-2020 End: 10-25-2022 History SDOH Social Connections Phone 98 [facility] Start: 08-26-2020 End: 10-25-2022 History SDOH Social Connections Get Together 2 [facility] Start: 05-27-2020 End: 09-22-2022 History SDOH Social Connections Living 3 [facility] Start: 05-27-2020 End: 10-25-2022 History SDOH Physical Activity DPW 0 [facility] Start: 08-21-2020 End: 09-22-2022 History SDOH Financial 5 [facility] Start: 05-27-2020 Education 18 [facility] Start: 1940 Sex Assigned At Female [facility] Start: 03-12-2022 End: 09-29-2022 Exposure to SARS-CoV-2 (event) Not sure [facility] Work Phone: Start: 05-18-2011 Tobacco use and exposure Smokeless tobacco non-user [facility] Start: 08-30-2022 End: 09-10-2024 Alcohol intake Current non-drinker of alcohol (finding) [facility] Start: 07-06-2009 Alcohol Comment rare [facility] Start: 1940 Sex Assigned At Not on file [facility] Start: 09-30-2017 Tobacco smoking status NHIS Unknown if ever smoked [facility] Work Phone: Start: 09-30-2017 Rare [facility] Start: 09-30-2017 None [facility] Start: 09-30-2017 Spouse/ Significant Other [facility] Start: 11-21-2017 Non-smoker [facility] Start: 01-14-2023 End: 01-24-2023 Exposure to SARS-CoV-2 (event) Unable to assess [facility] Start: 04-11-2023 End: 09-05-2023 History of Social function [facility] Start: 04-11-2023 End: 09-05-2023 Tobacco use panel [facility] Start: 12-18-2012 How hard is it for you to pay for the very basics like food, housing, medical care, and heating Not hard at all [facility] (I/We) worried cheryl er (my/our) food would run out before (I/we) got money to buy more. Never true [facility] Start: 01-01-2020 Gender identity Identifies as female gender (finding) [facility] Start: 09-09-2023 End: 09-29-2023 Alcohol intake Ex-drinker (finding) [facility] Do you belong to any clubs or organizations such as hindu groups, unions, fraternal or athletic groups, or school groups? Yes [facility] Are you now , , , , never or living with a partner? [facility] How often to you hav e a drink containing alcohol? Monthly or less [facility] How often do you hav e 6 or more drinks on 1 occasion? Never [facility] Do you feel stress - tense, restless, nervous, or anxious, or unable to sleep at night because your mind is troubled all the time - these days [OSQ] Only a little [facility] In the past 12 month s, was there a time when you were not able to pay the mortgage or rent on time? No [facility] How many standard dr inks containing alcohol do you have on a typical day? 1 or 2 [facility] Do you feel stress - tense, restless, nervous, or anxious, or unable to sleep at night because your mind is troubled all the time - these days [OSQ] To some extent [facility] Start: 02-05-2025 End: 02-11-2025 Sex Female (finding) [facility] Medical Equipment Procedure Code Equipment Code Equipment Original Text Equipment Identifier Dates EGD, with monitored anesthesia care [id number] [facility] Start: 05-01-2025 0---Jerel Bn Smpx P Tobra Fd - [id number] Start: [id number] 5 [id number]-Ymk-By-L-So nd Implant - [id number] Start: 02-20-2013 Comment on above: Description: TIBIAL TRAY FIXED BEARING [id number] 5 92565-Uod-Gu-B-Sd nd Implant - [id number] Start: 02-20-2013 Comment on above: Description: OVAL DO ME PATELLA 3 PEG [id number] 5 79656-Fyj-Kq-V-Ws nd Implant - [id number] Start: 02-20-2013 Comment on above: Description: FEMORAL CRUCIATE RETAINING [id number] 5 79052-Xni-Tc-G-Ry nd Implant - [id number] Start: 02-20-2013 Comment on above: Description: TIBIAL INSERT FIXED BEARING Cup Actb 50mm Pinn Sect [facility] - [id number] Start: 03-20-2012 Comment on above: Description: Acetabu lar Shell Liner Actb Pinn +4mm Neut 50mm - [id number] Start: 03-20-2012 Comment on above: Description: Acetabu lar Liner Stem Fem 11mm Cmntls Clrls Crl - [id number] Start: 03-20-2012 Comment on above: Description: Femoral Stem Head Fem +5mm 12/14 32mm Hip - [id number] Start: 03-20-2012 Comment on above: Description: Ceramic Femoral Head Screw Bn 6.5mm 30mm Pinn Canc - [id number] Start: 03-20-2012 Comment on above: Description: Cancell ous Screw Screw Bn 6.5mm 20mm Pinn Canc - [id number] Start: 03-20-2012 Comment on above: Description: Cancell ous Screw [id number], [id number], [id number], [id number], [id number], [id number], [id number] Start: 12-26-2014 End: 05-17-2025 Comment on above: Test glucose 1x/nini y, 250.00, insulin use: No USE ONE NEEDLE FOR E ACH DOSE ONCE DAILY Test blood sugar(s) 1x/daily. Dx: 250.00. Insulin: No Goals Date Patient Goal Desired Activity /State Personal health goal Functional Status Date Assessment Result Facility 05-27-2025 Are you deaf, or do you have serious difficulty hearing No 05/27/2025 1:17 PM EDIsabel Taylor RN No [facility] 05-27-2025 Are you blind, or do you have serious difficulty seeing, even when wearing glasses No 05/27/2025 1:17 PM Isabel Horvath RN No [facility] 05-27-2025 Do you have serious difficulty walking or climbing stairs Yes 05/27/2025 1:17 PM Isabel Horvath RN Yes [facility] 05-27-2025 Do you have difficul ty dressing or bathing Yes 05/27/2025 1:17 PM Isabel Horvath, BASIL Yes [facility] 05-27-2025 Because of a physica l, mental, or emotional condition, do you have difficulty doing errands alone such as visiting a physician's office or shopping No 05/27/2025 1:17 PM Isabel Horvath RN No [facility] 05-03-2025 Functional status With Assist of 1 [facility] Work Phone: 05-02-2025 Functional status Ambulates;Chair [facility] Work Phone: 04-26-2025 Total score [AUDIT-C] 0 04/26/20 3:26 PM EDT User, Espinozat [facility] 04-26-2025 How often to you hav e a drink containing alcohol? Never 04/26/2025 3:26 PM EDT User, Mychart Never [facility] 04-26-2025 How often do you hav e 6 or more drinks on 1 occasion? Never 04/26/2025 3:26 PM EDT User, Mychart Never [facility] 04-26-2025 Functional status Ambulates;Blake r;Bathroom Privilege [facility] Work Phone: 01-11-2025 Functional status Ambulates;Up a d elvi;Chair [facility] Work Phone: 04-18-2015 Are you deaf, or do you have serious difficulty hearing No 04/18/2015 12:39 PM Kimberly Pate RN No [facility] 04-18-2015 Are you blind, or do you have serious difficulty seeing, even when wearing glasses No 04/18/2015 12:39 PM Kimberly Pate RN No [facility] 04-18-2015 Do you have serious difficulty walking or climbing stairs Yes 04/18/2015 12:39 PM Kimberly Pate RN Yes [facility] 04-18-2015 Do you have difficul ty dressing or bathing No 04/18/2015 12:39 PM Kimberly Pate RN No [facility] 04-18-2015 Because of a physica l, mental, or emotional condition, do you have difficulty doing errands alone such as visiting a physician's office or shopping No 04/18/2015 12:39 PM Kimberly Pate RN No [facility] Mental Status Date Assessment Result Facility 05-27-2025 Because of a physica l, mental, or emotional condition, do you have serious difficulty concentrating, remembering, or making decisions No 05/27/2025 1:17 PM Isabel Horvath, RN No [facility] 05-08-2025 Cognitive function Awake;Alert;A ppropriate; Follows Commands [facility] Work Phone: 05-03-2025 Cognitive function Voice/Name [facility] Work Phone: 04-26-2025 Cognitive function Voice/Name [facility] Work Phone: 01-10-2025 Cognitive function Voice/Name [facility] Work Phone: 04-18-2015 Because of a physica l, mental, or emotional condition, do you have serious difficulty concentrating, remembering, or making decisions No 04/18/2015 12:39 PM Kimberly Pate RN No [facility] Clinical Notes 04-13-2018 to 07-19-2025 Patient InstructionsJose Arreola APRN.CNP - 07/19/2025 1:29 PM Nayla Lorenzo DO - 07/19/2025 10:52 AM EDTMaria M Puckett MA - 07/19/2025 10:48 AM EDTPatient Instructions Note Date & Type Note Facility 07-19-2025 Instructions Jose Arreola APRN.CNP - 07/19/2025 2:02 PM EDT - Stop taking amiodarone until further notice as we discussed today. - Continue to hold metoprolol; restart half a tablet when your resting heart rate is consistently above 65 beats per minute. - Arrange blood tests for complete blood count, kidney function, electrolytes, and magnesium as soon as possible. - If you develop chest pain, significant shortness of breath, new or worsening fatigue, or dizziness beyond mild symptoms, go to the emergency department. - Follow up with Cassandra Campos at [facility] on July 23 at 10:30 AM; call their office afterward to confirm this appointment. documented in this encounter [facility] 07-19-2025 History of Present illness Narrative CC: Patient presents with: Bradycardia: Low pulse rate PHIL Jackson is a 84 year old female who presents today for low heart rate at home. Recording using [employer] software for draft documentation of the visit was discussed with the patient/authorized operations support representative; all questions welcomed and answered. Patient/authorized operations support representative agreed to proceed Bradycardia w/ persistent A-fib and HTN: - Kaitlin Jackson noted bradycardia beginning last night, with heart rate dropping to 43 bpm. - Usual heart rate ranges from 80-90 bpm. - Held metoprolol last night and this morning due to low heart rate. - Current medications include metoprolol and amiodarone BID. - Kaitlin denies recent medication errors; uses a pill organizer to prevent this. - Home blood pressure readings: 110-120/60-70 mmHg. - Kaitlin denies chest pain, palpitations, nausea, emesis, or diarrhea. - Kaitlin reports mild dyspnea and dizziness when standing up after bending over, attributed to recent physical activity related to moving into independent living. - Kaitlin denies recent illness, medication/supplement changes, fever, or chills. - Continuous atrial fibrillation; unable to sense arrhythmia. - Kaitlin reports chronic rhinorrhea, managed with cetirizine. - Oxygen saturation consistently 98-99%. REVIEW OF SYSTEMS See HPI PAST MEDICAL HISTORY Diagnosis Date Atrial fibrillation (HCC) Cardiomegaly Cellulitis Chronic kidney disease Congestive heart failure (HCC) Essential hypertension, benign 1979 Generalized osteoarthrosis, unspecified site 1989 HX: breast cancer 2009 surgery at [facility] Lymphedema left leg Malignant neoplasm of upper-outer quadrant of female breast (HCC) 04/03/2009 Obesity, Class II, BMI 35-39.9 05/23/2025 Obesity, Class III, BMI >= 40 01/08/2025 Other and unspecified hyperlipidemia PUD (peptic ulcer disease) PVD (peripheral vascular disease) Special screening for malignant neoplasms, colon 12/12/2014 [...] REVISE MEDIAN N/CARPAL TUNNEL SURG Right [facility]? ALLERGIES Lovenox [Enoxaparin Sodium], Oxycontin [Oxycodone], Penicillins, and Codeine MEDICATIONS torsemide (DEMADEX) 20 mg tablet Take 1 tablet by mouth once daily as needed. For weight gain spironolactone (ALDACTONE) 25 mg tablet Take 1 tablet by mouth once daily. empagliflozin (JARDIANCE) 10 mg tablet Take 1 tablet by mouth daily with breakfast. pantoprazole DR (PROTONIX) 40 mg tablet Take 1 tablet by mouth every 12 hours. sucralfate (CARAFATE) 1 gram tablet Take 1 tablet by mouth three times a day before meals. pantoprazole DR (PROTONIX) 40 mg tablet Take 1 tablet by mouth two times a day for 15 days. Cetirizine 10 mg cap Take 0.5 capsules by mouth as needed (allergies). Lancets Test blood sugar(s) 1x/daily. Dx: 250.00. Insulin: No blood sugar diagnostic ([facility] InternationalTOUCH VERIO TEST STRIPS) test strip Test glucose 1x/daily, 60. insulin use: No Blood-Glucose Meter monitoring kit 1 each as needed for up to 1 day. Please give supplies to last for 2 tests a day metoprolol tartrate, short acting, (LOPRESSOR) 50 mg tablet Take 0.5 tablets by mouth two times a day. simvastatin (ZOCOR) 20 mg tablet Take 1 tablet by mouth daily at bedtime. gabapentin (NEURONTIN) 300 mg capsule Take 1 capsule by mouth once daily. levothyroxine (SYNTHROID) 100 mcg tablet Take 1 tablet by mouth once daily. metFORMIN ER (GLUCOPHAGE XR) 500 mg 24 hr tablet Take 1 tablet by mouth daily with breakfast. ALIGN PROBIOTIC RESISTANCE CAPSULE Take 1 capsule by mouth once daily. diosmin complex no.1 (VASCULERA) 630 mg tab Take 1 tablet by mouth once daily. multivitamins(DAILY MULTIVITAMIN TAB) Take one(1) tablet daily. FAMILY HISTORY Problem Relation Age of Onset Diabetes Mother Cancer Mother Heart Mother congenital valve problem Heart Failure Mother Heart Failure Father Diabetes Father Heart Brother Cancer Sister Diabetes Sister also has hx breast cancer Diabetes Sister Breast Cancer Sister sister is very private, pt not certain if it was cancer or not. Cancer Maternal Aunt uterine cancer Hypertension Daughter Diabetes Daughter Lipids Daughter SOCIAL HISTORY[1] PHYSICAL EXAM BP 148/72 Pulse (!) 49 Resp 16 Wt 73 kg (161 lb) SpO2 97% BMI 30.42 kg/m General Appearance: well appearing, in no acute distress, alert Lungs: Lungs clear to auscultation. No wheezing, rhonchi, rales. Heart: RRR without murmur, gallop, or rubs. No ectopy Health maintenance reviewed with patient: Shingrix Vaccine(2 of 3) due on 10/01/2009 DTaP,Tdap,Td Vaccine(2 - Td or Tdap) due on 09/20/2022 Advance Directive Discussion due on 11/21/2024 Medicare Advantage Annual Wellness Visit Never done Depression Screening due on 03/29/2025 Anxiety Screening due on 03/29/2025 Influenza Vaccine(1) due on 07/22/2025 Dilated Retinal Exam due on 10/09/2025 HbA1C due on 12/07/2025 Diabetic Foot Exam due on 03/01/2026 LDL Cholesterol due on 06/27/2026 Bone Density Screening Completed RSV Vaccine Completed Pneumococcal Vaccine: 50+ Completed DATA REVIEWED: Most recent labs Assessment/Plan 1. Bradycardia (R00.1) 2. Persistent atrial fibrillation (HCC) (I48.19) - Acute bradycardia with HR dropping to 43-46 bpm; patient on metoprolol and amiodarone for persistent AFib. - EKG reviewed and discussed with DAVIDSON Vinson at [facility]; findings suggest possible medication-induced bradycardia. - Hold amiodarone since QRS and QT have lengthened since last EKG - Continue to hold metoprolol; may restart half tablet when HR is consistently above 65 bpm. - Order blood counts, kidney function, electrolytes, and magnesium. - Advised patient to go to ER if experiencing chest pain, significant shortness of breath, fatigue, or increased dizziness. - Follow-up with DAVIDSON Vinson at [facility] on July 23 at 10:30 AM as scheduled during call with provider. - keep upcoming appointment with PCP 3. Essential hypertension (I10) Controlled See above. Prescription instructions reviewed with patient as applicable. Potential red flag symptoms discussed with the patient. Reviewed appropriate action plan to take if red flag symptoms occur. Patient agreeable to treatment plan. Jose Arreola APRN.CNP [1] Social History Tobacco Use Smoking status: Never Smokeless tobacco: Never Vaping Use Vaping status: Never Used Substance Use Topics Alcohol use: Yes Comment: Occasional Wine Drug use: Never documented in this encounter [facility] 07-19-2025 History of Present illness Narrative Virtualist Distance Health Note I have communicated my name and active licensure. The patient's identity and physical location were verified at the time of this visit. Either the patient or their legal operations support representative has been informed of the risks and benefits of -- and alternatives to -- treatment through a remote evaluation and consents to proceed with the evaluation remotely. Subjective/Objective: 84 y/o female presents with asymptomatic new onset bradycardia. HR is usually in the 80s but recently it was 45 last night and 46 this am. No symptoms. No change in medications but is int he process of moving into a new apartment. States she was been taking her medication correctly. BP is 110/63, pulse os 98% Past medical history, past surgical history, family history and social history reviewed and updated as indicated in EMR. REVIEW OF SYSTEMS: Review of Systems VITAL SIGNS: (if available) There were no vitals taken for this visit. Physical Exam (if video visit was performed) Physical Exam Triage source: [facility]: Triaging or Billing? Triaging Nurse Triage Disposition (If call is from Home Care, Home Care nurse triage, or an [facility] Care, the disposition is Go to ED Now): Go to ED Now (or PCP Triage) Was patient downgraded (i.e. disposition other than go to the ED was advised)? Yes Virtualist Recommended Disposition: See Provider within 2 days Mode of contact: Audio Only Visit Signed in as Primary Virtualist, Secondary Virtualist, or [facility] Telehealth provider: Secondary SIGNATURE: Nayla Tay DO PATIENT NAME: Jess Jackson DATE: July 19, 2025 documented in this encounter [facility] 07-19-2025 History of Present illness Narrative POPULATION HEALTH NAVIGATION OUTREACH Action/FYI Call received from Bharati Lewis RN Patient needs appointment today or tomorrow for slower heart rate. Spoke with patient, agreeable to schedule with PCP/Team. Appt scheduled for this afternoon Reason for Outreach [facility] Care Gaps due: N/A Call received from: Nurse Bharati Chi RN Patient Contacted: Spoke to patient/parent/or legal guardian Patient identified by name and date of Yes Healthy at Home actions taken: Patient scheduled/pended orders: Follow-up Appointment 07/19/2025 in INTM [facility] with OLDER, JOSE - slower heart rate / 24 hour recommendation per NOC 08/06/2025 in PODI [facility] with MIRANDA ROMANO - 3 mo diab nail follow up 08/16/2025 in INTM [facility] with MEENA GUERRA - 10 wk follow up 09/06/2025 [facility] with LAB [facility] - lab 10/01/2025 in CARD CHF MAIN with JESSICA ALEJO - HF, HOSPITAL FOLLOW UP, PER ORDER- Kayla Mena MD 10/08/2025 in RADIO GENERAL [facility] MOB with XR [facility] MOB - Pleural effusion [J90] 10/08/2025 [facility] with AGUILA SUAZO - 3 month f/u 12/09/2025 in [facility] with [facility] - lab Navigation Signature: Maria M Whalen MA July 19, 2025 10:48 AM documented in this encounter [facility] 07-19-2025 Telephone encounter Note HEALTHY AT HOME OUTREACH Provider Action/FYI: Patient states her heart rate normally is in the 80s. Last night it was 45, and this morning 46. States she feels tired but well. Dr. Tay, virtualist today, was contacted. She is advising an appointment for today or tomorrow. Sandeep, you've reached [facility] Healthy at Home, my name is Bharati Lewis, BASIL, I'm a registered nurse, and we are on a recorded line. Patient identified by name and date of Spoke with patient Verify that the patient is a [facility] patient: Yes Are you having any symptoms today? Yes - Go to Duque Martinez Protocol Symptoms present: yes Based on what you've told me, I do recommend that you: Managed by H@H RN Do you understand my recommendations? (After patient verifies understanding) If you develop any new symptoms, your condition worsens, then GO TO THE EMERGENCY ROOM OR CALL 911. If you have any questions, please call us back. Disposition Go to ED Now Reason for Disposition Heart beating very slowly (e.g., < 50 / minute) (Exception: Athlete and heart rate normal for caller.) No Initial Assessment on file. No Additional Information on file. Protocols Used Heart Rate and Heartbeat [id number] [facility] 07-19-2025 Miscellaneous Notes HEALTHY AT HOME OUTREACH Provider Action/FYI: Patient states her heart rate normally is in the 80s. Last night it was 45, and this morning 46. States she feels tired but well. Dr. Tay, virtualist today, was contacted. She is advising an appointment for today or tomorrow. Sandeep, you've reached [facility] Healthy at Home, my name is Bharati Lewis, BASIL, I'm a registered nurse, and we are on a recorded line. Patient identified by name and date of Spoke with patient Verify that the patient is a [facility] patient: Yes Are you having any symptoms today? Yes - Go to [facility] Protocol Symptoms present: yes Based on what you've told me, I do recommend that you: Managed by H@H RN Do you understand my recommendations? (After patient verifies understanding) If you develop any new symptoms, your condition worsens, then GO TO THE EMERGENCY ROOM OR CALL 911. If you have any questions, please call us back. Disposition Go to ED Now Reason for Disposition Heart beating very slowly (e.g., < 50 / minute) (Exception: Athlete and heart rate normal for caller.) No Initial Assessment on file. No Additional Information on file. Protocols Used Heart Rate and Heartbeat [id number] documented in this encounter [facility] 07-04-2025 Note [facility] 07-04-2025 History of Present illness Narrative CDM ENROLLMENT Provider Action / FYI: Patient identified by name and date of . Discussed care with patient. Program Details Chronic Disease Management Status: Identified Start Date: 07/10/2025 Responsible Staff: Senait Waggoner BASIL Support and Services: None active I see that you're using [employer] that s great! I wanted to let you know that you can also give a trusted family member or friend access to your account through what's called proxy access. This allows them to help you manage your healthcare by viewing the provider s messages, upcoming appointments, and test results. Would you be interested in learning more about how to set that up? Patient agrees--CloudTagst message sent Assessments CDM Assessment Medications: Do you have any questions about taking your medications or which medications you should be taking?: No Do you need any medication refills at this time, including any of the medication you might take only when needed?: No Symptoms: Are you experiencing any new or worsening symptoms that you need to talk about today?: No ADLs Patients can perform the following activities without help: Bathing: Yes Dressing: Yes Eating: Yes Transferring: Yes Toileting: Yes Walking : Yes Instrumental activities of daily living Grocery Shopping: Yes Driving / Use Public Transportation: No Using Telephone: Yes Housework: No Home Repair: No Doing laundry: Yes Taking Medications: Yes Handling finances: Yes Fall Risk No documentation this encounter SDOH No documentation this encounter Interventions The following were addressed during this visit: - Initial enrollment outreach Senait Waggoner RN July 04, 2025 12:16 PM documented in this encounter [facility] 07-03-2025 Note [facility] 07-03-2025 History of Present illness Narrative Patient is identified through a medication adherence outreach initiative based on pharmacy claims data from: [employer] Medication Adherence Category: Hypertension First Review Attribution Status: Correct attribution Medication(s) Lisinopril 40 mg 1 tab daily Last Filled 03/04/25 for 90 DS, Next fill due 06/03/25 Medication Status per portal/Epic Reconcile Dispense: Not filled Medication Status per Profile Review: Provider discontinued Is medication on Epic med list? No, Call pharmacy to discontinue prescription. Patient/provider appropriate for outreach? No Reason patient/provider not appropriate for outreach:Per Epic 05/10/25 Lisinopril was D/C Lawanda Preciado CPhT Value Based Care Pharmacy Team documented in this encounter [facility] 06-27-2025 Note [facility] 06-26-2025 Note [facility] 06-25-2025 Note [facility] 06-20-2025 History of Present illness Narrative Images from the original note were not included. . Respiratory Carbon Note Patient name: Jess Jackson PCP: Meena Guerra MD Referring Physician: Pedro Recording using [employer] software for draft documentation of the visit was discussed with the patient/authorized operations support representative; all questions welcomed and answered. Patient/authorized operations support representative agreed to proceed Consultation requested by Dr. Guerra for an opinion regarding recurrent pleural effusion. My final recommendations will be communicated back to the requesting physician by way of shared Medical record or letter to requesting physician via US mail. 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 Patient has had several admissions to [facility] for congestive heart failure. She has known pleural effusion, transudate, negative cytology. Recently transferred to [facility] from [facility] due to decompensated heart failure and inability to tolerate aggressive diuresis due to renal dysfunction, GFR 15%, pending possible dialysis. At [facility], right pleural effusion appeared loculated but ultrasound survey without enough fluid for thoracentesis. She had a right heart catheterization on May 23 that showed biventricular elevated filling pressures with preserved cardiac index. She was discharged to home with torsemide and supplemental oxygen. Prior to this, she had thoracentesis performed at [facility] in December and then twice in April. Current history dates back to December when she was first noted to have AF when she presented for evaluation of a sinus infection. She reports significant fluid retention, gaining approximately 20 lbs. She had massive LE edema, and what sounds like anasarca, orthopnea. No cough, chest pain or wheezing. Since her discharge from [facility], she has felt good. Edema controllable, no need for dialysis. She has been able to get off supplemental oxygen. DME: [employer] LABS: Pleural fluid 12/2024: 12% neutrophils, 69% lymphocytes Glucose 142 Total protein 2.5 LDH 51 Cytology negative Pleural fluid 03/2025: 24% neutrophils, 20% lymphocytes Glucose 173 Total protein 3.9 LDH 201 Cytology negative malignant cells, acute and chronic inflammation Pleural fluid 04/2025: PMNs 29% lymphocytes 33% Glucose 164 Total protein 2.6 LDH 114 Cytology negative malignant cells, acute and chronic inflammation DATA: ECHO 05/23/25: CONCLUSIONS: - Technically difficult exam due to body habitus. - Exam indication: Evaluation of known cardiomyopathy with a change in clinical status - The left ventricle is normal in size. Left ventricular systolic function is normal. EF = 60 5% (2D biplane) Left ventricular diastolic function was not evaluated due to mitral stenosis. - The right ventricle is normal in size. Right ventricular systolic function is mildly decreased. - The left atrial cavity is severely dilated. - The right atrial cavity is dilated. - There is moderate (2+) mitral valve regurgitation. Todays MV gradients were obtained at 125 bpm. - There is moderate (2+) tricuspid valve regurgitation. - Mild pk/mean 33/17 mmhg. Prior 25/13 mm hg. - Estimated right ventricular systolic pressure is 43 mmHg consistent with mild pulmonary hypertension. Estimated right atrial pressure is 8 mmHg based on IVC assessment. - Exam was compared with the prior echocardiographic exam performed on 09/09/2017. MR and TR has increased. appears slightly worse. : General: RA Mean 13.00 RV 33.00/13.00 PA 43.00/26.00 (32.00) PCWP Mean 18.00 Cardiac Outputs: CEDRIC CO 4.40 CEDRIC CI 2.30 CEDRIC HR 108.00 CEDRIC SV 40.74 CEDRIC SVI 21.30 TD CO 4.30 TD CI 2.32 TD HR 110.00 TD SV 39.09 TD SVI 21.09 Vascular Resistance: PVR 1.86 SVR 1284.00 PVR/SVR 0.00 Impression: - Elevated biventricular filling pressures (mPCWP 18, mRAP 13) - Normal-low cardiac indices (TD CO 4.3/CI 2.32; Cedric CO 4.4/CI 2.3) - Moderate post-capillary pulmonary hypertension (mPAP 26, PVR 1.8, SVR 1,284) Imaging / Diagnostic Studies: CXR 05/25/25 Chest Survey 05/21/25: RESULT: Right Hemithorax: No right pleural fluid. Left Hemithorax: Trace left pleural fluid. No site marked for thoracentesis due to insufficient volume. PROCEDURE: CHEST WITHOUT CONTRAST 04/17/2025 IMPRESSION: Coronary artery calcification (CAC) is is present Large right pleural effusion with compressive atelectasis. Small left pleural effusion with compressive atelectasis. CXR [facility] 12/2024: Possible elevated diaphragm and right pleural effusion PAST MEDICAL HISTORY Diagnosis Date Atrial fibrillation (HCC) Cardiomegaly Cellulitis Chronic kidney disease Congestive heart failure (HCC) Essential hypertension, benign 1979 Generalized osteoarthrosis, unspecified site 1989 HX: breast cancer 2009 surgery at [facility] Lymphedema left leg Malignant neoplasm of upper-outer quadrant of female breast (HCC) 04/03/2009 Obesity, Class II, BMI 35-39.9 05/23/2025 Obesity, Class III, BMI >= 40 01/08/2025 Other and unspecified hyperlipidemia PUD (peptic ulcer disease) PVD (peripheral vascular disease) Special screening for malignant neoplasms, colon 12/12/2014 Type II or unspecified type diabetes mellitus without mention of complication, not stated as uncontrolled 1992 Unspecified hypothyroidism 1970 ALLERGIES Allergen Reactions Lovenox [Enoxaparin* Rash, Itching Oxycontin [Oxycodon* Mental Status Change, Other: See Comments sx of a stroke -- disoriented Penicillins Rash, Other: See Comments epidermolysis Codeine GI Upset torsemide (DEMADEX) 20 mg tablet Take 1 tablet by mouth once daily. (Patient taking differently: Take 20 mg by mouth. Tuesday, day Tuesday) spironolactone (ALDACTONE) 25 mg tablet Take 1 tablet by mouth once daily. empagliflozin (JARDIANCE) 10 mg tablet Take 1 tablet by mouth daily with breakfast. pantoprazole DR (PROTONIX) 40 mg tablet Take 1 tablet by mouth every 12 hours. sucralfate (CARAFATE) 1 gram tablet Take 1 tablet by mouth three times a day before meals. amiodarone (PACERONE) 200 mg tablet Take 1 tablet by mouth two times a day. Cetirizine 10 mg cap Take 0.5 capsules by mouth as needed (allergies). metoprolol tartrate, short acting, (LOPRESSOR) 50 mg tablet Take 0.5 tablets by mouth two times a day. simvastatin (ZOCOR) 20 mg tablet Take 1 tablet by mouth daily at bedtime. gabapentin (NEURONTIN) 300 mg capsule Take 1 capsule by mouth once daily. levothyroxine (SYNTHROID) 100 mcg tablet Take 1 tablet by mouth once daily. metFORMIN ER (GLUCOPHAGE XR) 500 mg 24 hr tablet Take 1 tablet by mouth daily with breakfast. ALIGN PROBIOTIC RESISTANCE CAPSULE Take 1 capsule by mouth once daily. diosmin complex no.1 (VASCULERA) 630 mg tab Take 1 tablet by mouth once daily. multivitamins(DAILY MULTIVITAMIN TAB) Take one(1) tablet daily. sucralfate (CARAFATE) 1 gram tablet Take 1 tablet by mouth four times daily for [address] (PROTONIX) 40 mg tablet Take 1 tablet by mouth two times a day for 15 days. Lancets Test blood sugar(s) 1x/daily. Dx: 250.00. Insulin: No blood sugar diagnostic (ONETOUCH VERIO TEST STRIPS) test strip Test glucose 1x/daily, 60. insulin use: No Blood-Glucose Meter monitoring kit 1 each as needed for up to 1 day. Please give supplies to last for 2 tests a day Social History Tobacco Use Smoking status: Never Smokeless tobacco: Never Vaping Use Vaping status: Never Used Substance Use Topics Alcohol use: Yes Comment: Occasional Wine Drug use: Never FAMILY HISTORY Problem Relation Age of Onset Diabetes Mother Cancer Mother Heart Mother congenital valve problem Heart Failure Mother Heart Failure Father Diabetes Father Heart Brother Cancer Sister Diabetes Sister also has hx breast cancer Diabetes Sister Breast Cancer Sister sister is very private, pt not certain if it was cancer or not. Cancer Maternal Aunt uterine cancer Hypertension Daughter Diabetes Daughter Lipids Daughter PAST SURGICAL HISTORY Procedure Laterality Date ARTHRP ACETBLR/PROX FEM PROSTC AGRFT/ALGRFT 2002 right ARTHRP ACETBLR/PROX FEM PROSTC AGRFT/ALGRFT 02/2012 left ARTHRP KNE CONDYLE&PLATU MEDIAL&LAT COMPARTMENTS 10/24/2006 left BX BREAST PERC VACUUM/ROTN 02/12/2009 Right COLONOSCOPY 2003 COLONOSCOPY FLX DX W/COLLJ SPEC WHEN PFRMD 12/12/2014 Colonoscopy COLONOSCOPY FLX DX W/COLLJ SPEC WHEN PFRMD 01/03/2020 Colonoscopy DISKECTOMY, LUMBAR, SINGLE SP 10/03/2000 L4-5 with cages per pt report PAST SURGICAL HISTORY OF 03/03/2009 right lumpectomy and sentinel node biopsy - Dr. Reynolds - [facility] PAST SURGICAL HISTORY OF Right 02/20/2013 Right TKA REVISE MEDIAN N/CARPAL TUNNEL SURG Right [facility] - 2019? PMH, Social history, family history and surgical history reviewed and updated in EMR REVIEW OF SYSTEMS: CONSTITUTIONAL: No fevers, chills, nightsweats, unintended weight loss HEENT: History of sinus infection CARDIOVASCULAR: No chest pain, palpitations. Orthopnea and edema PULM: See HPI GI: History of melena and hematochezia. : No urinary complaints NEURO: No peripheral weakness/paresthesias or numbness of concern. Balance issues, uses rolling walker MUSC-SKEL: Bilateral hip replacements, bilateral knee replacements, history of back surgery INTEGUMENTARY: No new skin changes PHYSICAL EXAMINATION: BP 126/86 Pulse 68 Resp 17 Wt 160 lb 3.2 oz (72.7kg) SpO2 99% General Appearance: Appears younger than her stated age, NAD. Skin: Skin color, texture, turgor normal, no suspicious rashes or lesions. Head: Normocephalic, no masses, lesions, tenderness or abnormalities. Neck: No masses, no adenopathy, no JVD. Lungs: Not labored, normal to percussion, diminished breath sounds on right, no crackles. Heart: Irregular rhythm, no murmurs. Extremities: Edema, no clubbing. Assessment/Plan: 1. Pleural effusion -Due to diastolic heart failure in the face of AF and renal failure -Repeat CXR -Repeat thoracentesis as needed 2. Chronic diastolic heart failure -Appears to be doing better with current diuretic therapy -Follow up with cardiology 3. Chronic atrial fibrillation -On amiodarone. Will need surveillance for lung fibrosis -Follow up with cardiology 4. Stage 4 CKD -Last BUN/Cr worsening function -Diuretics adjusted -Recommend follow up with nephrology I spent a total of 70 minutes on the date of the service which included preparing to see the patient, [id number] patient care, completing clinical documentation, obtaining and/or reviewing separately obtained history, performing a medically appropriate examination, ordering medications, tests, or procedures, and independently interpreting results (not separately reported). Desmond Wong MD Respiratory Carbon documented in this encounter [facility] 06-20-2025 Note [facility] 06-11-2025 Note [facility] 06-11-2025 History of Present illness Narrative Transitional Care Management (TCM) Follow-Up Note PCP Update / Actionable Items N/A - No specialty updates needed Patient Source: In-Network Discharge Follow-up outreach: TCM enrolled patient Outreach Summary: Spoke with Pt. She reports: Im doing ok No sob No chest pain No swelling 160.4lbs today Aware of medication changes Will monitor and reach out the H@H with any questions or concerns Verbalized plan of care Thanked TCM for the call Patient discharged from [facility] Discharge date: 05/27/25 Admitted for: Acute decompensated heart failure Readmission Risk: 8 Value-Based Contract: Mauricio GARCIA Contact: Contact made with patient: Yes Spoke to: Patient Validation: Validated the person spoken to is actively involved in the patient's care. The patient was identified by Name and Date of . I'd like to get an update on how you're doing since our last phone call. Is now a good time to talk? Yes Symptoms: Are you feeling about the same, better or worse since leaving the hospital? Better Weekly Outreach: Additional Outreach Medications: Do you have any questions about taking your medications, including which medications you should be on, or do you need refills on your medications? No Patient Questions / Concerns: Do you have any questions related to your discharge? No Appointment / TCM Follow-Up: Have you had a follow-up visit with your Primary Care Provider or Specialist since you were discharged? Yes Do you need any assistance with scheduling or changing your follow-up appointments? Patient already has an appointment scheduled EDUCATION: Patient and family educated on issues/questions related to reason for admission, transition of care topics, and follow-up needed upon discharge. Senait Waggoner RN June 11, 2025 3:05 PM documented in this encounter [facility] 06-10-2025 Telephone encounter Note Pt called and is notified of providers message. Pt voices understanding and states she just got the message, so tomorrow will be the first day of the decrease. She states the provider told her to decrease M/W/F. Pt will call back and update providers office. Mckayla Card RN [facility] 06-10-2025 Miscellaneous Notes Pt called and is notified of providers message. Pt voices understanding and states she just got the message, so tomorrow will be the first day of the decrease. She states the provider told her to decrease M/W/F. Pt will call back and update providers office. Mckayla Card RN Noted and agree, Staff please get me an update on how she is doing with the decreased in torsemide. RegardsMeena MD Nile from [facility] calls and states that he is going to see patient 1 time a week for 1 week on the week of 06/24. Nile is planning on discharging patient from services then. Patient wanted to give it a week without shelter to see how she does. No call back needed unless questions. Sarita Doty RN documented in this encounter [facility] 06-10-2025 Telephone encounter Note Noted and agree, Staff please get me an update on how she is doing with the decreased in torsemide. RegardsMeena MD [facility] 06-10-2025 Telephone encounter Note Nile from [facility] calls and states that he is going to see patient 1 time a week for 1 week on the week of 06/24. Nile is planning on discharging patient from services then. Patient wanted to give it a week without shelter to see how she does. No call back needed unless questions. Sarita Doty RN [facility] 06-07-2025 Note [facility] 06-07-2025 History of Present illness Narrative Reason for Visit Hospital discharge follow up HPI Kaitlin Jackson is a 84-year-old female with a history of decompensated heart failure, pulmonary hypertension, diastolic dysfunction, and atrial fibrillation, presenting for follow-up after a recent hospitalization. Kaitlin was admitted on 05/21/25 and discharged on 05/27/25 for decompensated heart failure. During her hospitalization, she underwent a TTE on 05/23, which showed preserved ejection fraction with moderate mitral regurgitation and tricuspid regurgitation. A right heart catheterization on the same day revealed elevated biventricular fluid pressures. She was treated with diuretics and discharged on torsemide 20 mg daily. Her amiodarone dosage was adjusted, and she was instructed to discontinue apixaban due to a drop in hemoglobin with a heparin challenge. She also received iron infusions during her hospital stay. Recent lab results show hemoglobin at 11.7 g/dL, glucose at 128 mg/dL, BUN at 75 mg/dL, creatinine at 2.94 mg/dL, calcium at 10.4 mg/dL, TSH at 4.33 mIU/L, and magnesium at 2.4 mg/dL. She is currently on a low-sodium diet and has lost approximately 30 pounds since her hospitalization. She reports feeling more energetic and has been able to engage in activities independently. She denies any issues with pleural effusions and has not used her prescribed oxygen, noting that her oxygen saturation levels remain in the 90s. Kaitlin is currently taking multiple medications, including torsemide, spironolactone, Jardiance, pantoprazole, and amiodarone. She requests refills for these medications and inquires about discontinuing her oxygen therapy. She also expresses difficulty with fingerstick glucose monitoring due to neuropathy and asks about the possibility of using a continuous glucose monitor (CGM). She has upcoming appointments with her mangle operator garments and a physician academic assistant on 06/27/25. 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 and needed me to fill out paper work Social History Tobacco Use Smoking status: Never Smokeless tobacco: Never Vaping Use Vaping status: Never Used Substance Use Topics Alcohol use: Yes Comment: Occasional Wine Drug use: Never Past medical history, appointments, medications, allergies reviewed. Pertinent Lab/Diagnostic Studies are reviewed and discussed today Current Outpatient Medications: Cetirizine 10 mg cap Lancets blood sugar diagnostic ([facility] InternationalTOUCH VERIO TEST STRIPS) test strip metoprolol tartrate, short acting, (LOPRESSOR) 50 mg tablet OXYGEN, HOME THERAPY, simvastatin (ZOCOR) 20 mg tablet gabapentin (NEURONTIN) 300 mg capsule levothyroxine (SYNTHROID) 100 mcg tablet metFORMIN ER (GLUCOPHAGE XR) 500 mg 24 hr tablet ALIGN PROBIOTIC RESISTANCE CAPSULE diosmin complex no.1 (VASCULERA) 630 mg tab multivitamins(DAILY MULTIVITAMIN TAB) torsemide (DEMADEX) 20 mg tablet spironolactone (ALDACTONE) 25 mg tablet empagliflozin (JARDIANCE) [address] (PROTONIX) 40 mg tablet sucralfate (CARAFATE) 1 gram tablet amiodarone (PACERONE) 200 mg tablet sucralfate (CARAFATE) [address] (PROTONIX) 40 mg tablet Blood-Glucose Meter monitoring kit Health Maintenance Shingrix Vaccine(2 of 3) DTaP,Tdap,Td Vaccine(2 - Td or Tdap) Covid-19 Vaccine( season) Advance Directive Discussion Medicare Advantage Annual Wellness Visit Depression Screening Anxiety Screening@ Review Of Systems Constitutional: (+) unintentional weight loss Neurological: (+) peripheral neuropathy, (+) impaired manual dexterity Physical Exam BP 96/57 Pulse 91 Resp 16 Wt 73.1 kg (161 lb 1.9 oz) SpO2 99% BMI 26.01 kg/m GENERAL: NAD, alert and oriented, abdomen and legs are not as swollen as before. SKIN: in compression stockings right now HEAD: Normocephalic. EYES: PERRLA, EOMI, conjunctiva clear. LUNGS: Clear to auscultation bilaterally, no wheezes/rhonchi/rales. HEART: Regular rate and rhythm, no murmurs. No ectopy. EXTREMITIES: Normal, no deformities, no skin discoloration, no edema. NEURO: Awake, alert and oriented x3, cranial nerves II-XII grossly intact, normal gait, no involuntary motions. Labs - Hemoglobin: 11.7 g/dL - Glucose: 128 mg/dL - BUN: 75 mg/dL - Creatinine: 2.94 mg/dL - Calcium: 10.4 mg/dL - TSH: 4.33 - Magnesium: 2.4 mg/dL Tests (05/23/2025) Right Heart Catheter: Elevated biventricular fluid pressures, preserved function - Effusion study: No results discussed Imaging (05/23/2025) Transthoracic Echocardiogram: Short-preserved ejection fraction with moderate mitral regurgitation and tricuspid regurgitation - Amyloid SPECT - X-ray - Ultrasound Assessment and Plan 1. Hospital discharge follow-up (Z09) Chronic heart failure with preserved ejection fraction (HCC) (I50.32) Nonrheumatic mitral valve regurgitation (I34.0) Nonrheumatic tricuspid valve regurgitation (I36.1) Recent hospitalization from 05/21/25 to 05/27/25 for decompensated heart failure. TTE on 05/23 showed preserved ejection fraction with moderate mitral and tricuspid regurgitation. Right heart catheterization on 05/23 revealed elevated biventricular filling pressures. Discharged on torsemide 20 mg daily. Significant weight loss noted, raising concerns about potential dehydration and renal function deterioration. - Refill torsemide 90-day supply with 3 refills sent to [facility]. - Monitor weight and renal function closely; consider adjusting torsemide to every other day. - Follow-up with cardiology on 06/27/25. - Cancel appointment with Dr. Fields. - Maintain low sodium diet (1,500 mg daily). - Monitor for signs of fluid overload or worsening regurgitation. 2. Persistent atrial fibrillation (HCC) (I48.19) History of atrial fibrillation with rate control. Amiodarone dosage adjusted during hospitalization. Apixaban discontinued due to risk of GI bleed. - Continue amiodarone 1 tablet twice daily; refill sent to mail order pharmacy. - Monitor for signs of arrhythmia or adverse effects. - Follow-up with cardiology on 06/27/25. 3. Type 2 diabetes mellitus without complication, without long-term current use of insulin ([facility]) (E11.9) 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lbuminuria, without long-term current use of insulin ([facility]) (E11.29) Diabetes managed with Jardiance; recent glucose level 128 mg/dL. Pharmacist follow-up recommended checking A1c. No severe hypoglycemia symptoms reported. Not on insulin therapy. - Refill Jardiance sent to [facility]. - Monitor blood glucose levels. - Check A1c in 3 months. - Discuss potential use of CGM if A1c is elevated. 4. Essential hypertension (I10) Blood pressure management includes spironolactone. Recent creatinine level elevated at 2.94 mg/dL, indicating potential renal impairment. - Refill spironolactone 90-day supply with 3 refills sent to [facility]. - Monitor blood pressure and renal function closely. - Consider adjusting diuretic therapy to prevent further renal impairment. 5. Hyperlipidemia, unspecified hyperlipidemia type (E78.5) Hyperlipidemia management ongoing. - Continue current lipid-lowering therapy. - Monitor lipid levels regularly. 6. Diabetic polyneuropathy associated with type 2 diabetes mellitus (HCC) (E11.42) Neuropathy symptoms present, affecting dexterity and ability to perform fingerstick glucose monitoring. - Monitor neuropathy symptoms and manage pain as needed. - Discuss alternative glucose monitoring methods if A1c is elevated. 7. Lipodermatosclerosis (M79.3) Condition stable. - Continue current management. - Monitor for any changes or worsening symptoms. 8. Stage 3a chronic kidney disease (HCC) (N18.31) Recent creatinine level elevated at 2.94 mg/dL, indicating worsening renal function. Concerns about potential dehydration due to significant weight loss and diuretic therapy. - Monitor renal function closely. - Consider adjusting diuretic therapy to prevent further renal impairment. - Ensure adequate hydration. 9. Acquired hypothyroidism (E03.9) Recent TSH level 4.33 IU/mL. - Continue current thyroid hormone replacement therapy. - Monitor TSH levels regularly. Voice recognition software was used to compose this office note. Please excuse any unintended typographical errors. Recording using [employer] software for draft documentation of the visit was discussed with the patient/authorized operations support representative; all questions welcomed and answered. Patient/authorized operations support representative agreed to proceed Meena Guerra MD documented in this encounter [facility] 06-07-2025 Instructions Meena Guerra MD - 06/07/2025 12:09 PM EDT We discussed your recent hospitalization and follow-up care: - You were hospitalized from 05/21/25 to 05/27/25 for decompensated heart failure and were discharged on torsemide 20 mg daily. You were also optimized on guideline-directed medical therapy (GDMT). - Your recent lab results showed hemoglobin at 11.7, glucose at 128, BUN at 75, creatinine at 2.94, calcium at 10.4, TSH at 4.33, and magnesium at 2.4. - Your pleural effusions have improved, and home health nurses have not detected any concerning findings. We discussed your medications: - Torsemide (diuretic): Continue taking 20 mg daily. I sent a 90-day supply with 3 refills to [facility]. However, due to your elevated creatinine (2.94), I will consult with Dr. Knapp to determine if we should adjust your dosage to every other day. - Spironolactone: Continue taking as prescribed. I sent a 90-day supply with 3 refills to [facility]. - Jardiance: Continue taking as prescribed. I sent this to [facility] for future refills. - Pantoprazole (Protonix): Continue taking twice daily for now. I sent a 3-month supply to [facility]. After one more month, you may reduce the dose to once daily. Be cautious of potential side effects, such as C. diff infection. - Sucralfate: Continue taking as prescribed for one more month. I sent a refill to [facility]. - Amiodarone: Continue taking 1 tablet twice daily. You have 60 tablets remaining, which will last 15 days. I sent a refill to your mail-order pharmacy. - Oxygen: You no longer need oxygen therapy. I will discontinue this order, and you can return the equipment. We discussed your diabetes management: - Your A1c is currently not accurate due to new blood formation. We will recheck your A1c in 3 months to reassess your diabetes management. - You do not need to perform finger sticks at this time due to dexterity issues. We will revisit the need for a continuous glucose monitor (CGM) after your next A1c test. We discussed your diet and weight management: - You have lost 60 pounds since your hospitalization, which has improved your energy and mobility. However, I recommend maintaining your current weight and avoiding further weight loss to protect your kidney function. - Continue following a low-sodium diet with a goal of 1,500 mg of sodium per day. Be mindful of hidden sodium in processed and restaurant foods. We discussed your follow-up care: - You have an appointment with your mangle operator garments on 06/27/25. - If you plan to continue care at the [facility], you may cancel your appointment with Dr. Fields. - I will send a message to Dr. Knapp to discuss your torsemide dosage and overall care plan. Please continue monitoring your symptoms and let us know if you experience any new or worsening issues, such as shortness of breath, swelling, or fatigue. documented in this encounter [facility] 06-05-2025 History of Present illness Narrative Primary Care Pharmacy Visit CC (Reason for Consult): (E11.29, R80.9) 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lbuminuria, without long-term current use of insulin (HCC) (primary encounter diagnosis) Goal(s): A1c < 8% Last Collaborating Provider Visit: 05/20/2025 Jess Jackson is a 84 year old female presenting for initial visit: This initial consult was conducted virtually with the patient where the consult agreement was explained. The patient may decline or cancel the agreement at any time. After consideration, the patient consented to the pharmacy consult agreement and agreed to allow medications be collaboratively managed by a pharmacist. HPI/ROS: Patient denies symptoms of hypoglycemia (sweating, anxiety, palpitations, hunger, and tremor) Patient denies symptoms of hyperglycemia (polyuria, polydipsia, polyphagia) Patient denies potential medication adverse effects Current DM Medications: Metformin ER 500mg daily Jardiance 10mg daily SMBGS (Fingersticks): patient does not regularly check sugars - has neuropathy in hands that make checks uncomfortable Medication-Related Updates: Adherence: no missed doses Preferred pharmacy: [facility] Medication access issues: no issues Past medical history reviewed. ALLERGIES Allergen Reactions Lovenox [Enoxaparin* Rash, Itching Oxycontin [Oxycodon* Mental Status Change, Other: See Comments sx of a stroke -- disoriented Penicillins Rash, Other: See Comments epidermolysis Codeine GI Upset Current Outpatient Medications Medication Sig Dispense Refill torsemide (DEMADEX) 20 mg tablet Take 1 tablet by mouth once daily. 30 tablet 0 spironolactone (ALDACTONE) 25 mg tablet Take 1 tablet by mouth once daily. 30 tablet 0 amiodarone (PACERONE) 200 mg tablet Take 1 tablet by mouth two times a day. 60 tablet 0 Cetirizine 10 mg cap Take 0.5 capsules by mouth as needed (allergies). Lancets Test blood sugar(s) 1x/daily. Dx: 250.00. Insulin: No 100 each 11 blood sugar diagnostic (ONETOUCH VERIO TEST STRIPS) test strip Test glucose 1x/daily, 60. insulin use: No 60 strip 11 Blood-Glucose Meter monitoring kit 1 each as needed for up to 1 day. Please give supplies to last for 2 tests a day 1 kit 5 metoprolol tartrate, short acting, (LOPRESSOR) 50 mg tablet Take 0.5 tablets by mouth two times a day. 180 tablet 3 empagliflozin (JARDIANCE) 10 mg tablet Take 1 tablet by mouth daily with breakfast. [address] (PROTONIX) 40 mg tablet Take 1 tablet by mouth every 12 hours. sucralfate (CARAFATE) 1 gram tablet Take 1 g by mouth three times a day before meals. OXYGEN, HOME THERAPY, 2 L/min by Nasal Cannula route as directed. simvastatin (ZOCOR) 20 mg tablet Take 1 tablet by mouth daily at bedtime. 90 tablet 3 gabapentin (NEURONTIN) 300 mg capsule Take 1 capsule by mouth once daily. 90 capsule 3 levothyroxine (SYNTHROID) 100 mcg tablet Take 1 tablet by mouth once daily. 90 tablet 3 metFORMIN ER (GLUCOPHAGE XR) 500 mg 24 hr tablet Take 1 tablet by mouth daily with breakfast. ALIGN PROBIOTIC RESISTANCE CAPSULE Take 1 capsule by mouth once daily. diosmin complex no.1 (VASCULERA) 630 mg tab Take 1 tablet by mouth once daily. multivitamins(DAILY MULTIVITAMIN TAB) Take one(1) tablet daily. 0 No current facility-administered medications for this visit. EXAM: Last 3 Encounter BP Readings: Date: BP: 05/21/2025 91/62 05/21/2025 113/70 05/09/2025 110/65 Wt: 78.1 kg (172 lb 2.9 oz) BMI: 27.79 kg/(m^2) LABS: Lab Results Component Value Date HBA1C 6.4 02/27/2025 HBA1C 6.1 09/06/2024 HBA1C 5.9 03/27/2024 HBA1C 7.2 09/16/2021 HBA1C 7.1 03/18/2021 HBA1C 7.0 11/26/2020 Glucose 127 05/27/2025 BUN 54 05/27/2025 Creatinine 2.17 05/27/2025 Sodium 135 05/27/2025 Potassium 4.2 05/27/2025 Chloride 93 05/27/2025 CO2 28 05/27/2025 Protein, Total 6.7 05/21/2025 Albumin 3.5 05/21/2025 Calcium 9.3 05/27/2025 Alkaline Phosphatase 75 05/21/2025 Bilirubin, Total 0.4 05/21/2025 AST 14 05/21/2025 ALT 10 05/21/2025 Lab Results Component Value Date CHOL 129 02/27/2025 CHOL 155 03/18/2021 LDL 43 02/27/2025 LDL 61 03/18/2021 HDL 69 02/27/2025 HDL 53 03/18/2021 TG 83 02/27/2025 TG 203 03/18/2021 Albumin/Creat Ratio (mg/g) Date Value 09/28/2019 371 (H) eGFR-All Other Races (.) Date Value 03/18/2021 53 Estimated Glomerular Filtration Rate (mL/min/1.73m ) Date Value 05/27/2025 22 ASSESSMENT/PLAN: 1. 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lbuminuria, without long-term current use of insulin (HCC) - ICD9: 250.40, 791.0, ICD10: E11.29, R80.9 - Controlled; patient has appt with PCP in 2 days and will get an updated A1c - if well controlled, may not need to pursue CGM - Continue current medications - Blood glucose monitoring on a once daily schedule; reviewed that Medicare requires patients to be on insulin OR have severe hypoglycemia in order to cover CGMs - unclear if they would make an exception for neuropathy - Follow up in 2 days, sooner should any other issues arise - will follow-up after PCP visit Patient is scheduled to see PCP on 06/07/2025. Patient to return to clinic for PharmD f/u as needed. The majority of the pharmacy visit (> 50%) was spent counseling and/or coordinating care for the patient. I spent a total of 20 minutes on the date of the service which included preparing to see the patient, [id number] patient care, completing clinical documentation, obtaining and/or reviewing separately obtained history, and counseling and educating the patient/family/caregiver. Marysol Triplett RPh documented in this encounter [facility] 06-05-2025 Note [facility] 06-05-2025 Progress note Note Date/Time June 05, 2025 10:35am [facility] [address] [place] [address] Progress Note - Wound Care 06/05/25 1032 MR#: [id number] Acct: [id number] Name: JESS JACKSON Rep #:[id number] : 1940 84 From: Ann Slater NP RESIN [employer]-C PCP: Dr. Meena Guerra MD Status:REG R CR Location: [facility] History of Present Illness Date of Service: 06/05/25 Chief Complaint: Nonhealing venous ulcer of left lower extremity near the left lateral malleolus History of Wound: This is a 84-year-old white female with a complex medical history presenting for follow-up on her lower leg edema and drainage. She recently was not hospitalized on 527 for dyspnea and was found to have pleural effusion during this admission she was treated with Lasix but treatment was halted because she went into renal failure she also has a history of atrial fibsand heart failure and in a sensitive situation with the fluid overload and the kidney failure her creatinine went up to 4 but now is back to normal at her baseline of 1.2 she was then discharged on April 27 but was readmitted the same day to significant dyspnea and explosive bloody diarrhea. She reports that her blood pressure dropped significantly prompting a call to emergency services. During the second admission she underwent a colonoscopy and was found to have a duodenal ulcer. She has had this cauterized twice already. She received a blood transfusion and fluids during this time also. She was back in the emergency room for yesterday for her blood pressure to be at systolic 80 or 90 she was also taken off her Cardizem lisinopril and metoprolol and metolazone 5 mg. She is anemic and also has a noted tremor. She is receiving home health care twice a week she reports a developing large blister on her left lateral legwhich was wrapped by the visiting nurse she also reports feeling cold and shaky and worsening symptoms over the past 3 weeks she has been sleeping in a chair due to respiratory issues has not been elevating her legs. Kaitlin has a history of venous insufficiency and has been wearing support hose but has not been usingthem recently due to the concerns about fluid retention. She also has a historyof diabetes and taking Ozempic she denies taking NSAIDs such as Motrin Aleve or ibuprofen. Her last A1c was in the sixes. Progress of Wound: Bilateral lower legs are closed and healed patient will be discharged from the wound center Subjective Subjective Patient had been admitted to the hospital after her cardiology visit and was in the hospital for like 3 weeks and just basically got out they were doing the dressing changes for her and she basically healed well in the hospital. Objective Data Objective Data No sign of infection healing well dried old skin I told her that we will order some have her use amLactin cream to clear that off she will use it once ortwice a day and she can follow-up as needed Vital Signs: Vital Signs Temp Pulse Resp BP 97.3 F L 94 16 118/83 H 06/05/25 09:32 06/05/25 09:32 06/05/25 09:32 06/05/25 09:32 Weight: 162 lb 2.382 oz Physical Exam Const oriented x3 General Appearance: cooperative Exam Limitations: no limitations HEENT normocephalic Head and Scalp: normal to inspection Face and Sinus: normal facial exam Nose: external nose normal External Ear: external ears normal Eyes General Eye: normal appearance of both eyes Neck General: normal visual inspection Resp normal respiratory effort Effort and Inspection: able to speak in complete sentences Auscultation: clear to auscultation bilaterally Cardio no murmurs Rate: other Other Details: Irregular Rhythm: abnormal rhythm Heart Sounds: other Other Details: Atrial fibrillation GI soft to palpation Palpation: soft and no hepatosplenomegaly Extremity General Extremity: normal exam except as noted and edema bilateral Skin Rashes: rashes noted Wounds: wounds noted Wound Narrative: Open areas bilateral lower legs from her PAD and venous insufficiency both legs. Neuro oriented x3 Psych Appearance: grossly normal Speech: normal speech Thought Content: normal thought content Judgement: judgement good Debridement Note Debridement Note No debridement was completed: No debridement was completed today Post-Debridement Measurements and Additional Note: Post-Debridement Measurements/Treatment TOREY - Nurse 1 - General Ulcer Assessment Start: 06/05/25 09:32 Freq: Status: Active Protocol: JORGE Activity Type Activity Date Activity User E-sign Co-sign Detail Recorded Client Recorded Date Recorded By Document 06/05/25 09:32 DL [id number] 06/05/25 09:42 DL 06/05/25 09:32 - Today's Visit Information Type of service Follow-up Visit (Physician/MENTAL HEALTH CASE MANAGER ) Arrival Mode Ambulatory, Walker Transfer Assistance None Patient Identification Verified (Name & Yes ) Patient Requires Transmission-Based No Precautions Height and Weight Weight 162 lb 2.382 oz Weight in Pounds 162.1 lbs Weight Measurement Method Estimated by Patient Vital Signs Temperature (97.8 F-99.1 F) 97.3 F L Temperature Source Temporal Pulse Rate (60-100) 94 Pulse Location Monitor Respiratory Rate (12-18) 16 Respiratory rate source Observation Blood Pressure (90/60-120/80) 118/83 H Blood Pressure Mean (mm Hg) 94 Source Monitor History Since Last Visit- (Skip if this is Patient's initial visit) Have you changed medications since your No last visit? Any new allergies or adverse reactions No Had a fall/change in ADL's that may No increase risk of falls Signs or symptoms of abuse and/or No neglect since last visit Have you been in the hospital since your Yes last visit? Has dressing in place as prescribed Yes Has compression in place as prescribed Yes Has offloadiing in place as prescribed N/A Pain Scale: 0-10 Numeric Is Patient Pain Free? Yes WC - Nurse 1 - General Ulcer Measurement Start: 06/05/25 09:32 Freq: Status: Active Protocol: Activity Type Activity Date Activity User E-sign Co-sign Detail Recorded Client Recorded Date Recorded By Document 06/05/25 09:32 DL [id number] 06/05/25 09:42 DL 06/05/25 09:32 Wound Center Nurse 1 #3- L LAT LE BLISTER AREA -Current Size (cm) - Length 0 -Current Size (cm) - Width 0 -Current Size (cm) - Depth 0 -Total Square Cm 0 -Photo Taken Yes -Exudate Amt None Present -Wound Margin Flat & Intact -Granulation Amt Large (67-100%) -Granulation Quality Pale -Necrosis Amt None Present (0 %) -Structure Exposed N/A -Texture (Deborah-wound Skin Appearance) Scarring -Moisture (Deborah-wound Skin Appearance) No Abnormality, Dry/Scaly -Color (Deborah-wound Skin Appearance) Hemosiderin Staining -Temperature (Deborah-wound Skin No Abnormality Appearance) (Pt Warm) -Ulcer Cleansing Soap and Water -Foul Odor after Cleansing No #2 Right Lateral Lower Extremity CLUSTER -Current Size (cm) - Length 0 -Current Size (cm) - Width 0 -Current Size (cm) - Depth 0 -Total Square Cm 0 -Photo Taken Yes -Exudate Amt None Present -Wound Margin Flat & Intact -Granulation Amt Large (67-100%) -Granulation Quality Pale -Necrosis Amt None Present (0 %) -Structure Exposed N/A -Texture (Deborah-wound Skin Appearance) Scarring -Moisture (Deborah-wound Skin Appearance) No Abnormality -Color (Deborah-wound Skin Appearance) Hemosiderin Staining -Temperature (Deborah-wound Skin No Abnormality Appearance) (Pt Warm) -Ulcer Cleansing Soap and Water -Foul Odor after Cleansing No Right Calf (cm) 34 Right Ankle (cm) 19.6 Left Calf (cm) 36 Left Ankle (cm) 23.3 TOREY - Nurse 2 - General Ulcer CM Notes Start: 06/05/25 09:32 Freq: Status: Active Protocol: Activity Type Activity Date Activity User E-sign Co-sign Detail Recorded Client Recorded Date Recorded By Document 06/05/25 10:05 [facility] [id number] 06/05/25 10:07 [facility] 06/05/25 10:05 Wound Center Nurse 2 #3- L LAT LE BLISTER AREA -Time 10:06 -Procedure Performed No -Post Debridement (cm) - Length 0 -Post Debridement (cm) - Width 0 -Post Debridement (cm) - Depth 0 -Total Square (Post) (cm) 0 -Area of Debridement (cm) - Length 0 -Area of Debridement (cm) - Width 0 -Total Square (Area) (cm) 0 -Wound/Ulcer Outcome Healed- Epithelialized #2 Right Lateral Lower Extremity CLUSTER -Time 10:06 -Procedure Performed No -Post Debridement (cm) - Length 0 -Post Debridement (cm) - Width 0 -Post Debridement (cm) - Depth 0 -Total Square (Post) (cm) 0 -Area of Debridement (cm) - Length 0 -Area of Debridement (cm) - Width 0 -Total Square (Area) (cm) 0 -Wound/Ulcer Outcome Healed- Epithelialized Pain Scale: 0-10 Numeric Is Patient Pain Free? Yes - Nurse 3 - General Ulcer D/C NN Start: 06/05/25 09:32 Freq: Status: Active Protocol: Activity Type Activity Date Activity User E-sign Co-sign Detail Recorded Client Recorded Date Recorded By Document 06/05/25 10:10 [facility] [id number] 06/05/25 10:11 [facility] 06/05/25 10:10 Wound Care Center Nurse 3 BLE -Other pt will apply own stockings when gets home Pain Scale: 0-10 Numeric Is Patient Pain Free? Yes - Visit Discharge Discharge Condition Stable Ambulatory Status Ambulatory, Walker Notes: pt healed. Assessment/Plan Assessment/Plan (1) Atrial fibrillation: CODE(S): I48.91 - Unspecified atrial fibrillation QUALIFIERS: Atrial fibrillation type: unspecified Qualified Code(s): I48.91 - Unspecified atrial fibrillation (2) Lymphedema: CODE(S): I89.0 - Lymphedema, not elsewhere classified (3) PAD (peripheral artery disease): CODE(S): I73.9 - Peripheral vascular disease, unspecified (4) 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: CODE(S): I83.029 - Varicose veins of left lower extremity with ulcer of unspecified site PLAN: All vessels have healed patient will be discharged from the wound center and she can follow-up as needed Patient was encouraged to use amLactin cream to her legs 2-3 times a day to get rid of all the old skin. (5) Venous ulcer of right lower extremity with varicose veins: CODE(S): I83.019 - Varicose veins of right lower extremity with ulcer of unspecified site; L97.919 - Non-pressure chronic ulcer of unspecified part of right lower leg with unspecified severity (6) Type 2 diabetes mellitus: CODE(S): E11.9 - Type 2 diabetes mellitus without complications QUALIFIERS: Diabetes mellitus complication status: with unspecified complications Diabetes mellitus superintendent container terminal insulin use: unspecified chcf insulin use status Qualified Code(s): E11.8 - Type 2 diabetes mellitus with unspecified complications PLAN: C 06/05/25 1035 <Electronically signed by Ann Slater NP, NP-C> Cosigner Signature (if applicable): CC: ~ Signed [facility] Work Phone: [phone]) 107-251807-10-2025 Telephone encounter Note* Telephone Encounter - Jose Arreola APRN.CNP - 05/30/2025 8:46 AM EDT Ok with plan of care Jose Arreola APRN.CNP [facility]07-10-2025 Miscellaneous Notes* Telephone Encounter - Jose Arreola APRN.CNP - 05/30/2025 8:46 AM EDT Ok with plan of care Jose Arreola APRN.CNP * Telephone Encounter - Marla Gonzalez RN - 05/29/2025 1:56 PM EDT Luis with [facility] calling in with plan of care for patient. PT will see her 2 timesper week for 3 weeks for functional mobility training. No call back needed if provider agreeable to plan. Marla Gonzalez RN documented in this encounterA[facility] Telephone encounter Note * Telephone Encounter - Marla Gonzalez RN - 05/29/2025 1:56 PM EDT Luis with [facility] calling in with plan of care for patient. PT will see her 2 timesper week for 3 weeks for functional mobility training. No call back needed if provider agreeable to plan. Marla Gonzalez RN [facility]07-08-2025 Miscellaneous Notes* Telephone Encounter - Joann Somers RN - 05/28/2025 3:59 PM EDT Loco nurse with [facility] calling with resumption of care after pt's admission to [facility] from 05/21-05/27 for decompensated heart failure. He states pt has a hx of Afib and HR was fluctuating between 101-106 which he states is normal for pt. longterm plan of care is 2x/week for 2weeks then 1x/week for 1 week and reevaluate. Also Loco reconciled pt's meds and she is now on Spironolactone and Torsemide-warning because both are diuretics. No need to contact Loco back. Pt's last visit was a virtual with Dr. Guerra on 05/17/25. No upcoming appt with PCP but has an appt with Dr. Desmond Wong in pulmonology on 06/20. documented in this encounterA[facility] Telephone encounter Note * Telephone Encounter - Joann Somers RN - 05/28/2025 3:59 PM EDT Loco nurse with [facility] calling with resumption of care after pt's admission to [facility] from 05/21-05/27 for decompensated heart failure. He states pt has a hx of Afib and HR was fluctuating between 101-106 which he states is normal for pt. longterm plan of care is 2x/week for 2weeks then 1x/week for 1 week and reevaluate. Also Loco reconciled pt's meds and she is now on Spironolactone and Torsemide-warning because both are diuretics. No need to contact Loco back. Pt's last visit was a virtual with Dr. Guerra on 05/17/25. No upcoming appt with PCP but has an appt with Dr. Desmond Wong in pulmonology on 06/20. [facility]08[facility] History of Present illness Narrative* Senait Waggoner RN - 05/28/2025 2:38 PM EDT Images from the original note were not included. Transition Care Management (TCM) Initial Outreach PCP Update / Actionable Items HRTIC TCM Home Visit Referral Source of Stratification: [facility] Hospital Admission Status: Discharged Readmission Risk Score: 8 Patient's zip code: Is zip code within program service area: Patient meets program referral criteria: No Patient does not qualify for High Risk TCM Home Visit program due to: Readmission Risk Score does not meet criteria Disposition: Patient does not qualify for HRTIC, will provide TCM outreach follow-up for 30-days Patient Source: In-Network Discharge Initial outreach: TCM discharge report Outreach Summary: Spoke with Pt. She reports; Im doing ok Saw [facility] today Shortness of Breath with movement Has home O2 No chest pain No swelling Pt. took her weight this am Does not remember what the weight was Educated on the importance of daily weights and what parameters to report Aware of upcoming appts. Verbalized plan of care Thanked [facility] for the call Patient discharged from [facility] Discharge date: 05/27/25 Admitted for: Acute decompensated heart failure Readmission Risk: 8 Value-Based Contract: Mauricio GARCIA Contact: Contact made with patient: Yes Hi, my name is Senait Waggoner RN and I am calling from the [facility] on behalf of your Primary Care Provider, Meena Guerra MD. I understand you were recently in the hospital, so I am calling to check in with you to ensure you are feeling well now that you are home. May I ask you a few questions related to your hospital stay and well-being? Yes Spoke to: Patient Validation: Validated the person spoken to is actively involved in the patient's care. The patient was identified by Name and Date of . Symptoms: Are you feeling about the same, better or worse since leaving the hospital? Better Medications: Do you have any questions about taking your medications, including which medications you should be on, or do you need refills on your medications? No Medication Review: Partial mediation review completed, per patient preference Discharge Instructions: Your Discharge Instructions / After Visit Summary (AVS) are important in guiding you through the recovery process. Do you have any questions related to your discharge instructions? No Home Care: Were you discharged with home care? No Social: Your mental health is as important to us as your physical health. Would you mind answering a few questions on this topic? No, patient declines. Follow-Up Appointment: [Appointment / TCM Follow-up within 14 days] I would like to help you schedule a hospital follow-up virtual or telephone visit with your PCP. This is a great way for you to connect with your provider to ensure you have safely transitioned home.If you are agreeable, I will send your request to a museum service scheduler who will contact and assist you with that appointment. This will give you an opportunity to ask any questions or address any concerns youmay have with your PCP. Inform the patient that if they have any questions or concerns prior to that appointment, to call their PCP's office right away. Appointment Action: No action required; patient already has appointment scheduled. Education details: Patient and family educated on issues/questions related to reason for admission,transition of care topics, and follow-up needed upon discharge. Heart Failure Education Provided Weight monitoring and knowing your dry weight Symptom management related to heart failure When to call your provider Heart Failure Care Plan Daily Activities Weigh yourself before breakfast. Compare today s weight with your dry weight. My dry weight is lbs. Dry weight is your weight when you do not have extra fluid in your body. Make sure you know your dry weight. Your dry weight is your weight on the first day you are home from the hospital or the weight your doctor tells you. Take ALL medications as prescribed. Check for swelling in your feet, ankles, legs and stomach. Do not go over the sodium limit your healthcare provider gave you. My sodium limit is mg/day. If you did not get a sodium limit from your doctor, limit sodium to 2,500 mg per day. Be active and exercise every day. Which zone are you in today? Green, Yellow or Red? Green Zone ALL CLEAR - This zone is your goal! You do not have symptoms or they are mild. You have: No new or worsening: Shortness of breath Swelling of feet, ankles, legs or stomach Fatigue/tiredness Stable weight (weight is within 4 pounds of your dry weight) Yellow Zone CAUTION - This zone is a warning zone. Call your heart failure doctor or nurse if you: Gain or lose 4 or more pounds from your dry weight. Have new or worsening: Shortness of breath when active or at night when lying down Swelling of feet, ankles, legs or stomach Tiredness (less energy than usual) Dizziness that lasts more than a minute Need to urinate more often at night Dry cough Feel uneasy and know something is not right Have a change of appetite (less hungry) Red Zone EMERGENCY Go to the Emergency Room or call 911 if you: Struggle to breathe or are short of breath while sitting still Have chest pain that is new or gets worse Are confused or cannot think clearly IMPORTANT PHONE NUMBERS Facility [facility] Heart Failure Center [facility] [phone] [facility] [phone] Card[facility] [phone] [facility] [phone] [facility] [phone] [facility] [phone] [facility] [phone] [facility] [phone] [facility] [phone] [facility] [phone] [facility] [phone] [facility] [phone] [facility] [phone] [facility] [phone] Nurse chief substation operator [phone] or [phone] [facility] [phone] Senait Waggoner RN May 28, 2025 2:53 PM documented in this encounterAultman [facility]07-08-2025 [facility]07-08-2025 History of Present illness Narrative* Senait Waggoner RN - 05/28/2025 9:47 AM EDT Value based Operations Care Management Heart Failure Guideline Directed Medical Therapy (GDMT) Program Provider Action / FYI: Chart Review Patient Source: TCM Guideline Directed Medical Therapy (GDMT) Program Last HF admission: 05/21/2025 GDMT Score: 4 Last Echocardiogram: 05/23/25 Ejection Fraction: 60 Basic Metabolic Panel (BMP): 05/26/25 Estimated Glomerular Filtration Rate (eGFR): 22 N-terminal pro B-type natriuretic peptide (NT proBNP): 05/21/25 Heart Failure (HF) Diagnosis: 05/21/2025 Heart Failure Status: HFpEF - HF diagnosis, EF >=40%, non-dialysis Action Taken: GDMT score is <=6 and EF >40% - Continued Management via CHF Care Path Senait Waggoner RN May 28, 2025 10:01 AM documented in this encounterAultman [facility]07-07-2025 Telephone encounter Note * Telephone Encounter - Mirtha Sue RN - 05/27/2025 4:31 PM EDT Images from the original note were not included. [facility] Phone Encounter DATE of SERVICE: 05/27/2025 TIME of SERVICE: 4:31 PM Status: FYI Service/Provider:Cardiology Kayla Mena Reason for call: Medication Issue/Question Resolution: Reinforced education Comments: Patient calling to clarify medications. Reviewed medications with patient from discharge instructions. Mirtha Sue RN Date of Resolution: 05/27/2025 Time of Resolution 4:31 PM [facility]07-07-2025 Miscellaneous Notes* Telephone Encounter - Mirtha Sue RN - 05/27/2025 4:31 PM EDT Images from the original note were not included. [facility] Phone Encounter DATE of SERVICE: 05/27/2025 TIME of SERVICE: 4:31 PM Status: [facility] Service/Provider:Cardiology Kayla Mena Reason for call: Medication Issue/Question Resolution: Reinforced education Comments: Patient calling to clarify medications. Reviewed medications with patient from discharge instructions. Mirtha Sue RN Date of Resolution: 05/27/2025 Time of Resolution 4:31 PM documented in this encounterAultman [facility]07-07-2025 [facility]07-07-2025 [facility]07-06-2025 [facility]07-[facility]-2025 [facility]-04-2025 Note [facility]-2025 [facility]-2025 [facility] 05-22-2025 History of Present illness Narrative* Brenda Robles RN - 05/22/2025 12:17 PM EDT Transitional Care Management (TCM) Inpatient Outreach N/A - No specialty updates needed Summary: Patient admitted to: [facility] Patient admitted on: (Not on file) Admitted for: Acute decompensated heart failure (HCC) Contact made with patient: No MyChart message sent Brenda Robles RN May 22, 2025 documented in this encounterAultman [facility]rville [facility]07-02-2025 History of Present illness Narrative* Marysol Triplett RPh - 05/22/2025 11:19 AM EDT Patient currently admitted for acute decompensated HF. Phone visit with me today has been cancelled. Marysol Triplett, PharmD, BCACP documented in this encounterAultman [facility]07-02-2025 [facility]07-02-2025 [facility]07-01-2025 [facility]07-01-2025 Note[facility]07-01-2025 Instructions * Patient Instructions* Jessica Alejo MD - 05/21/2025 12:42 PM EDT Proceed to J1-1 and await hospital admission documented in this encounterAultman Orrville [facility]07-01-2025 History of Present illness Narrative* Jessica Alejo MD - 05/21/2025 11:15 AM EDT Images from the original note were not included. [facility] SECTION OF HEART FAILURE and CARDIAC TRANSPLANT MEDICINE OUTPATIENT VISIT DATE May 21, 2025 OUTPATIENT VISIT TYPE New PRIMARY CARE PHYSICIAN: Meena Guerra [address] [place] [address] CHIEF COMPLAINT: Cardiac consultation NURSING INTAKE (Patient s concerns and/or recent hospitalizations/ER visits): Jess Jackson is a 84 year old female from [place], [place] referred by Dr. Guerra for cardiac evaluation. PMHx includes acute diastolic HF; atrial fibrillation; HTN; T2DM; CKD stage 3b; HF Nursing Assessment: Interim Hospitalizations and/or ER visits: Chest Pain: no Skipping or irregular heartbeats: yes. She knows she has afib but isnt able to feel much Shortness of breath at rest: no Shortness of breath with activity: yes, does wear 2 liters on exertion, but this improving Cough: no Waking up in the middle of the night gasping for air: no Lightheadedness or dizziness: no Feeling like you are going to pass out: no Actually passing out: no Poor energy level: yes Unintentional weight gain: no Unintentional weight loss: no Swelling in your legs,feet, abdomen: yes- legs. But does also have venous insuffiencey and has a current infection. Also has swelling in her abd Filling up quickly when you eat: for a long time when she was admitted she wasn't eating- wasn't hungry, her appetite has been improving slowly. HISTORY OF PRESENT ILLNESS: 84-year-old female with a history of HFpEF, chronic venous insufficiency, and AF, presenting for evaluation of fluid overload and dyspnea. She is accompanied by her , daughter and son in law who provide additional history. The patient was discharged from the hospital two weeks ago after a 17-day stay. She was initially admitted in December for AF and fluid overload, and then readmitted on April 16 for similar issues, including cough and dyspnea. During her recent hospitalization, she was diagnosed with pneumonia and underwent two thoracenteses for pleural effusions. She was started on Lasix but developed significant renal impairment, leading to a stationary steam engineer advising against its use. She was discharged on metolazone 5 mg twice weekly and supplemental oxygen for exertion. Since discharge, she reports a 10-pound weight loss due to fluid reduction but continues to experience significant fluid retention, particularly in her legs and abdomen. She notes that her legs feel heavier, and she has difficulty ambulating. She has been wearing compression stockings but reports minimal improvement. Past medical history is significant for HFpEF, chronic venous insufficiency, and AF. She has not undergone cardioversion. A TTE in 2016 showed mild to moderate valvular regurgitation and normal LVEF.A stress test in 2021 was unremarkable. Her most recent NT-proBNP in February was 2500 pg/mL. TTE at OSH back in March showed LVEF 55-60%, mod TR She is currently taking metolazone 5 mg twice weekly and Jardiance. PAST MEDICAL HISTORY Diagnosis Date Atrial fibrillation (HCC) Cardiomegaly Cellulitis Chronic kidney disease Congestive heart failure (HCC) Essential hypertension, benign 1979 Generalized osteoarthrosis, unspecified site 1989 HX: breast cancer 2009 surgery at [facility] Lymphedema left leg Malignant neoplasm of upper-outer quadrant of female breast (HCC) 04/03/2009 Other and unspecified hyperlipidemia PVD (peripheral vascular disease) Special screening for malignant neoplasms, colon 12/12/2014 [...] REVISE MEDIAN N/CARPAL TUNNEL SURG Right [facility] - 2019? SOCIAL HISTORY Social History Tobacco Use Smoking status: Never Smokeless tobacco: Never Vaping Use Vaping status: Never Used Substance Use Topics Alcohol use: Yes Comment: Occasional Wine Drug use: Never FAMILY HISTORY Problem Relation Age of Onset Diabetes Mother Cancer Mother Heart Mother congenital valve problem Heart Failure Mother Heart Failure Father Diabetes Father Heart Brother Cancer Sister Diabetes Sister also has hx breast cancer Diabetes Sister Breast Cancer Sister sister is very private, pt not certain if it was cancer or not. Cancer Maternal Aunt uterine cancer Hypertension Daughter Diabetes Daughter Lipids Daughter ALLERGIES: ALLERGIES Allergen Reactions Lovenox [Enoxaparin* Rash, Itching Oxycontin [Oxycodon* Mental Status Change, Other: See Comments sx of a stroke -- disoriented Penicillins Rash, Other: See Comments epidermolysis Codeine GI Upset CURRENT MEDICATIONS: cefpodoxime (VANTIN) 200 mg tablet Take 200 mg by mouth two times a day. Lancets Test blood sugar(s) 1x/daily. Dx: 250.00. Insulin: No blood sugar diagnostic (ONETOUCH VERIO TEST STRIPS) test strip Test glucose 1x/daily, 60. insulin use: No metoprolol tartrate, short acting, (LOPRESSOR) 50 mg tablet Take 0.5 tablets by mouth two times a day. metOLazone (ZAROXOLYN) 5 mg tablet Wednesdays and Tuesday. apixaban (ELIQUIS) 5 mg tab(s) Take 1 tablet by mouth two times a day. Patient should start on 2024. empagliflozin (JARDIANCE) 10 mg tablet Take 1 tablet by mouth daily with breakfast. pantoprazole DR (PROTONIX) 40 mg tablet Take 1 tablet by mouth every 12 hours. sucralfate (CARAFATE) 1 gram tablet Take 1 g by mouth three times a day before meals. amiodarone (PACERONE) 200 mg tablet Take 1 tablet by mouth every 12 hours. azithromycin (ZITHROMAX) 250 mg tablet Take 250 mg by mouth as directed. OXYGEN, HOME THERAPY, 2 L/min by Nasal Cannula route as directed. simvastatin (ZOCOR) 20 mg tablet Take 1 tablet by mouth daily at bedtime. gabapentin (NEURONTIN) 300 mg capsule Take 1 capsule by mouth once daily. levothyroxine (SYNTHROID) 100 mcg tablet Take 1 tablet by mouth once daily. metFORMIN ER (GLUCOPHAGE XR) 500 mg 24 hr tablet Take 1 tablet by mouth daily with breakfast. Cetirizine 10 mg cap Take by mouth as needed (allergies). ALIGN PROBIOTIC RESISTANCE CAPSULE Take 1 capsule by mouth once daily. azelastine-fluticasone (DYMISTA) 137-50 mcg/spray nasal spray Use 1 Graham in each nostril two timesa day. pentoxifylline ER (TRENTAL) 400 mg CR tablet Take 1 tablet by mouth three times a day. diosmin complex no.1 (VASCULERA) 630 mg tab Take 1 tablet by mouth once daily. mupirocin (BACTROBAN) 2 % ointment Apply 1 application to affected area twice daily. multivitamins(DAILY MULTIVITAMIN TAB) Take one(1) tablet daily. Blood-Glucose Meter monitoring kit 1 each as needed for up to 1 day. Please give supplies to last for 2 tests a day semaglutide (OZEMPIC) 0.25 mg or 0.5 mg (2 mg/3 mL) pen Inject 0.5 mg subcutaneously one time a week. REVIEW OF SYSTEMS: CONSTITUTION: Positive for: Recent weight change Negative for: Fever and Night sweats HEENT: Positive for: Hearing loss RESPIRATORY: Positive for: Difficulty breathing Negative for: Cough GASTROINTESTINAL: Positive for: Melena, Abdominal distention and Early satiety Negative for: Nauseaand Diarrhea MUSCULOSKELETAL: Positive for: Arthralgias Negative for: Myalgias NEUROLOGICAL: Negative for: Headaches and Dizziness SKIN: Negative for: Rash EYES: Negative for: Visual disturbance CARDIOVASCULAR: Positive for: Leg swelling and Arrhythmia Negative for: Chest pain and Pre-syncope GENITOURINARY: Negative for: Difficulty urinating PATIENT ENTERED DATA: 05/16/2025 KCCQ-12 Scores Physical Limitation Score 25 (Class III Heart Failure ) Symptom Frequency Score 8.33 (Class IIIb / IV Heart Failure ) Quality of Life Score 37.5 (Poor to Fair Quality of Life) Social Limitation Score 25 (Class III Heart Failure) Overall Summary Score 23.96 (Class IIIb / IV Heart Failure ) 04/26/2025 05/16/2025 PHQ-9 Score 12 4 08/24/2024 01/07/2025 04/26/2025 PROMIS Global Health - (T-Scores - the mean of general population = 50. Five points is a clinicallymeaningful difference.) Physical T-Score 44.9 39.8 34.9 Mental T-Score 45.8 38.8 48.3 PHYSICAL EXAMINATION: BP 113/70 Pulse 94 Ht 154.9 cm (5' 1) Wt 86.2 kg (190 lb) SpO2 100% BMI 35.90 kg/m General: Well appearing, in no acute distress. Skin: No clubbing, no cyanosis. Eyes: Extra ocular movements intact Oropharynx: Teeth in good repair. Neck: + jugular venous distention to tragus, no carotid bruits, carotids have a normal upstroke, nopalpable thyromegaly. Lungs: decreased breath sounds on R base Heart: Regular rhythm, PMI not displaced, S1, S2 normal, no S3, no S4, no heaves, no rub and no murmur. Abdomen: Soft, nontender, bowel sounds normal, no palpable organomegaly, no bruits. Extremities: +3 peripheral edema . Grade 2/4 distal pulses bilaterally. Neuro: Oriented to person, place and time, alert, cooperative, gait coordinated. CARDIOVASCULAR MEDICINE TESTING: I have personally reviewed the Electrocardiogram, Laboratory Testing, and Echocardiogram. 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 - Current medications include metolazone 5 mg twice a week; Lasix discontinued due to elevated creatinine levels. - Advised hospital admission for aggressive diuresis with IV medications and close monitoring of renal function. - Discussed potential for cardioversion once fluid status is optimized. - Ordered echocardiogram - Patient and family understand and agree with the plan for hospital admission. 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 - Will monitor renal function closely during hospital admission while managing fluid overload. # Essential hypertension (I10) - Blood pressure management is crucial in the context of heart failure and atrial fibrillation. - Will review and adjust antihypertensive regimen as needed during hospital stay. # Diabetic polyneuropathy associated with type 2 diabetes mellitus (HCC) (E11.42) # BMI 35.0-35.9,adult (Z68.35) - Contributing factor to heart failure with preserved ejection fraction (HFpEF). - Weight management discussed as part of long-term treatment plan. PLAN AND RECOMMENDATIONS: - Inpatient admission - IV diuresis, TTE, consider DCCV once more euvolemic - Can go to any cardiology service I personally interviewed, confirmed and edited the above information as obtained by others. We discussed natural history of disease, current treatment options, and future potential treatment options.We discussed diet, exercise, other non- medical management as above. Jessica Alejo MD [facility] Section Of Heart Failure and Cardiac Transplant Medicine Heart and Vascular [place] [facility] Desk [id number] [place] [address] documented in this encounterCleveland [id number] NoteAcmc Healthcare System06-30-2025 Telephone encounter Note* Telephone Encounter - Mckayla Card RN - 05/20/2025 6:49 PM EDT [facility] called and is notified of providers message. He voices understanding. Message sent to Clerical Pool to schedule appointment. Mckayla Card RN [facility]06-30-2025 Miscellaneous Notes* Telephone Encounter - Mckayla Card RN - 05/20/2025 6:49 PM EDT [facility] called and is notified of providers message. He voices understanding. Message sent to Clerical Pool to schedule appointment. Mckayla Card RN * Telephone Encounter - Meena Guerra MD - 05/20/2025 5:47 PM EDT I will set her up with the pharmacist for that Regards, Meena Guerra MD * Telephone Encounter - Mckayla Card RN - 05/20/2025 1:34 PM EDT [facility] reports Pt has started going to the wound center and goes there once a week. He said they are going to see her twice a week for 3 weeks, as he doesn't think her or her wouldbe able to do the dressing changes. He states the Wound Center put her on and antibiotic Defpodoxime 200 mg BID for a + wound culture. He reports the antibiotic popped up because with the Protonix itdecreases the antibiotics mechanism of action, and he said it must be in the Penicillin family because that triggered too. He states the Pt has been on it since this past Tuesday and hasn't had any reaction. He states provider had told Pt to increase how much she was checking her BS as she had made medication changes to her DM medications. He said Sarita had gone over this with the Pt about 1-2weeks ago and the Pt still hasn't started to. He said the Pt is saying she doesn't have all the supplies, because the pharmacy didn't have them. He said he had recommended the Dexcom or the FreestyleLibre and the Pt told him she would be interested in that. I told him typically for their insuranceto approve that they have to check their BS 3x or more a day and be on insulin. I told him I would let provider know. Please call and advise. Mckayla Card RN documented in this encounterAultman Or[facility]06-30-2025 Telephone encounter Note * Telephone Encounter - Meena Guerra MD - 05/20/2025 5:47 PM EDT I will set her up with the pharmacist for that Regards, Meena Guerra MD [facility]06-30-2025 NoteHNO ID: [id number] Author: MEENA GUERRA MD Service: ? Author Type: Physician Type: Progress Notes Filed: 05/20/2025 17:42 Note Text: There is a cardiology apt in place and she does have an apt tomorrow Regards, Meena Guerra [facility]06-30-2025 Telephone encounter Note* Telephone Encounter - Mckayla Card RN - 05/20/2025 1:34 PM EDT [facility] reports Pt has started going to the wound center and goes there once a week. He said they are going to see her twice a week for 3 weeks, as he doesn't think her or her wouldbe able to do the dressing changes. He states the Wound Center put her on and antibiotic Defpodoxime 200 mg BID for a + wound culture. He reports the antibiotic popped up because with the Protonix itdecreases the antibiotics mechanism of action, and he said it must be in the Penicillin family because that triggered too. He states the Pt has been on it since this past Tuesday and hasn't had any reaction. He states provider had told Pt to increase how much she was checking her BS as she had made medication changes to her DM medications. He said Sarita had gone over this with the Pt about 1-2weeks ago and the Pt still hasn't started to. He said the Pt is saying she doesn't have all the supplies, because the pharmacy didn't have them. He said he had recommended the Dexcom or the FreestyleLibre and the Pt told him she would be interested in that. I told him typically for their insuranceto approve that they have to check their BS 3x or more a day and be on insulin. I told him I would let provider know. Please call and advise. Mckayla Card RN [facility]06-27-2025 NoteAcmc Healthcare System06-27-2025 History of Present illness Narrative* Meena Guerra MD - 05/17/2025 9:34 AM EDT Chief Complaint No chief complaint on file. I have communicated my name and active licensure. The patient's identity and physical location wereverified at the time of this visit. Either the patient or their legal operations support representative has been informed of the risks and benefits of -- and alternatives to -- treatment through a remote evaluation andconsents to proceed with the evaluation remotely. PHIL Jackson is a 84 year old female who is contacted today for a virtual/telemedicine visit. This is an established patient of Dr. Meena Guerra MD. States Kaitlin Jackson is a 84-year-old female with a history of diabetes mellitus, presenting for follow-up. Kaitlin reports feeling stronger each day and is actively working on balance issues with the assistance of a physical therapist. She notes a weight loss of approximately 7 lbs, with her current weight at 192 lbs, down from a previous weight of 199 lbs. She is currently taking Jardiance and metolazone,the latter of which she takes twice a week on Wednesdays and Saturdays. She reports increased urinary frequency on the days she takes metolazone. Kaitlin has been receiving treatment at a wound care center for a large blister on her leg. Her legs are heavily bandaged, making it difficult to assess weight loss in that area, but she notes improved ease in putting on shoes. She has been elevating her legs at night and a couple of times during the day, as per previous recommendations. The wound care center has provided a medicated gauze dressing and elastic leg wraps, which are to be changed daily. She has a follow- up appointment next Tuesday. There has been some discussion about venous ablation, with mixed opinions from different healthcare providers. She is scheduled to see a specialist who may perform the procedure if deemed appropriate. Kaitlin reports a reduction in abdominal weight, noting that she was able to wear a girdle that she previously could not. Her blood glucose levels were recorded at 163 mg/dL on the 24 and 140 mg/dL yesterday by a visiting nurse. She has been carefully monitoring her carbohydrate and sodium intake. She started taking Jardiance recently and is using an older glucometer with outdated supplies. She has been prescribed [employer] twice a day to aid in wound healing and is consuming ahigh-protein diet. Kaitlin has a cardiology appointment at the main campus on Tuesday and is considering canceling a subsequent appointment with a PA in cardiology the next day. She is currently holding off on taking Trental and Ozempic, and her venous procedure is tentatively scheduled for around the 05 of June. She is also scheduled for infusions starting in May. Kaitlin is currently using supplemental oxygen at the lowest setting during physical activity but finds it cumbersome. She is considering moving to an independent living apartment at [place] for easieraccess to emergency medical care and to alleviate some of the caregiving burden on her . Shehas been receiving home healthcare, including physical therapy, and will continue for a few more weeks before reassessment. Past medical history, appointments, medications, allergies reviewed 05/17/2025 Previous Medical History PAST MEDICAL HISTORY Diagnosis Date Cardiomegaly Cellulitis Essential hypertension, benign 1979 Generalized osteoarthrosis, unspecified site 1989 HX: breast cancer 2009 surgery at [facility] Lymphedema left leg Malignant neoplasm of upper-outer quadrant of female breast (HCC) 04/03/2009 Other and unspecified hyperlipidemia PVD (peripheral vascular disease) Special screening for malignant neoplasms, colon 12/12/2014 Type II or unspecified type diabetes mellitus without mention of complication, not stated as uncontrolled 1992 Unspecified hypothyroidism 1970 Previous Surgical History PAST SURGICAL HISTORY Procedure Laterality Date ARTHRP [...] REVISE MEDIAN N/CARPAL TUNNEL SURG Right [facility] - 2019? Family History FAMILY HISTORY Problem Relation Age of Onset Diabetes Father Heart Mother congenital valve problem Diabetes Sister also has hx breast cancer Diabetes Sister Breast Cancer Sister sister is very private, pt not certain if it was cancer or not. Cancer Maternal Aunt uterine cancer Patient Allergies ALLERGIES Allergen Reactions Lovenox [Enoxaparin* Rash, Itching Oxycontin [Oxycodon* Mental Status Change, Other: See Comments sx of a stroke -- disoriented Penicillins Rash, Other: See Comments epidermolysis Codeine GI Upset Current Medications Current Outpatient Medications on File Prior to Visit Medication Sig Blood-Glucose Meter monitoring kit 1 each as needed for up to 1 day. Please give supplies to last for 2 tests a day metoprolol tartrate, short acting, (LOPRESSOR) 50 mg tablet Take 0.5 tablets by mouth two times a day. metOLazone (ZAROXOLYN) 5 mg tablet Wednesdays and Tuesday. apixaban (ELIQUIS) 5 mg tab(s) Take 1 tablet by mouth two times a day. Patient should start on 2024. empagliflozin (JARDIANCE) 10 mg tablet Take 1 tablet by mouth daily with breakfast. pantoprazole DR (PROTONIX) 40 mg tablet Take 1 tablet by mouth every 12 hours. sucralfate (CARAFATE) 1 gram tablet Take 1 g by mouth three times a day before meals. amiodarone (PACERONE) 200 mg tablet Take 1 tablet by mouth every 12 hours. azithromycin (ZITHROMAX) 250 mg tablet Take 250 mg by mouth as directed. OXYGEN, HOME THERAPY, 2 L/min by Nasal Cannula route as directed. simvastatin (ZOCOR) 20 mg tablet Take 1 tablet by mouth daily at bedtime. gabapentin (NEURONTIN) 300 mg capsule Take 1 capsule by mouth once daily. levothyroxine (SYNTHROID) 100 mcg tablet Take 1 tablet by mouth once daily. semaglutide (OZEMPIC) 0.25 mg or 0.5 mg (2 mg/3 mL) pen Inject 0.5 mg subcutaneously one time a week. metFORMIN ER (GLUCOPHAGE XR) 500 mg 24 hr tablet Take 1 tablet by mouth daily with breakfast. Cetirizine 10 mg cap Take by mouth as needed (allergies). ALIGN PROBIOTIC RESISTANCE CAPSULE Take 1 capsule by mouth once daily. azelastine-fluticasone (DYMISTA) 137-50 mcg/spray nasal spray Use 1 Graham in each nostril two timesa day. (Patient not taking: Reported on 01/22/2025) amLODIPine (NORVASC) 5 mg tablet Take 1 tablet by mouth two times a day. (Patient not taking: Reported on 01/22/2025) pentoxifylline ER (TRENTAL) 400 mg CR tablet Take 1 tablet by mouth three times a day. diosmin complex no.1 (VASCULERA) 630 mg tab Take 1 tablet by mouth once daily. mupirocin (BACTROBAN) 2 % ointment Apply 1 application to affected area twice daily. blood sugar diagnostic (ONE TOUCH VERIO) test strip Test glucose 1x/daily, 250.00, insulin use: No Lancets (ONE TOUCH DELICA) lancets Test blood sugar(s) 1x/daily. Dx: 250.00. Insulin: No aspirin, enteric coated 81 mg EC tablet Take 81 mg by mouth once daily. (Patient not taking: Reported on 01/22/2025) multivitamins(DAILY MULTIVITAMIN TAB) Take one(1) tablet daily. No current facility-administered medications on file prior to visit. Social History Social History Tobacco Use Smoking status: Never Smokeless tobacco: Never Vaping Use Vaping status: Never Used Substance Use Topics Alcohol use: Yes Comment: Occasional Wine Drug use: Never Review of Symptoms GENERAL: No weight loss. No malaise or fevers HEENT: Negative for headaches No eye discharge or redness No earaches or drainage No sore throat Nose POS/NEG for congestion and nasal discharge NECK: Negative for lumps, pain or significant neck swelling RESPIRATORY: No wheezing, SOB, Difficulty breathing. CARDIOVASCULAR: Negative for chest pain GI: No nausea, vomiting, or diarrhea MUSCULOSKELETAL: Negative for muscle aches or bodyaches SKIN: Negative for lesions, rash, and itching Neuro: No lightheadedness or dizziness EXAM: Deferred physical exam as visit was completed over the phone. Virtual visit completed using video, limited exam completed. General Appearance: Well appearing, alert, in no acute distress, well-hydrated, well nourished. Skin: Skin color Head: Normocephalic Psych: Attitude - cooperative, easily engaged in conversation Appearance - normal, hygiene and grooming appropriate Affect - euthymic, normal mood Mental status: Alert, attentive. Speech is clear and fluent with good repetition, comprehension Coordination: No abnormal or extraneous movements. Gait/Stance: Posture is normal. Health Maintenance List Shingrix Vaccine(2 of 3) due on 10/01/2009 DTaP,Tdap,Td Vaccine(2 - Td or Tdap) due on 09/20/2022 Covid-19 Vaccine( season) due on 09/28/2024 Advance Directive Discussion due on 11/21/2024 Medicare Advantage Annual Wellness Visit Never done Depression Screening due on 03/29/2025 Anxiety Screening due on 03/29/2025 HbA1C due on 08/29/2025 Dilated Retinal Exam due on 10/09/2025 LDL Cholesterol due on 02/27/2026 Diabetic Foot Exam due on 03/01/2026 Bone Density Screening Completed Influenza Vaccine Completed RSV Vaccine Completed Pneumococcal Vaccine: 50+ Completed Urine Albumin:Creatinine Ratio Discontinued Data reviewed Last 5 Encounter BP Readings: Date: BP: 05/09/2025 110/65 03/04/2025 135/87 01/22/2025 106/68 01/08/2025 104/68 12/22/2024 142/91 BMI Readings from Last 5 Encounters: 05/09/25 : 37.60 kg/m 03/04/25 : 35.98 kg/m 01/22/25 : 36.92 kg/m 01/08/25 : 41.76 kg/m 12/22/24 : 40.16 kg/m Last 5 Encounter Wt Readings: Date: Wt: 05/09/2025 90.3 kg (199 lb) 03/04/2025 86.4 kg (190 lb 6.4 oz) 01/22/2025 88.6 kg (195 lb 6.4 oz) 01/08/2025 100.2 kg (221 lb) 12/22/2024 96.4 kg (212 lb 8.4 oz) Medication and allergy list reviewed, reconciled and updated 05/17/2025 1. Type 2 diabetes mellitus without complication, without long-term current use of insulin (HCC) (E11.9) Blood glucose levels have been 163 mg/dL and 140 mg/dL on recent checks. Patient is currently on Jardiance, which was started recently. - Continue Jardiance. - Ordered OneTouch Verio test strips and OneTouch Delica lancets for blood glucose monitoring twicedaily. - Hold Ozempic due to concerns about appetite suppression and upcoming venous procedure. - Follow-up next at 1600 to reassess. 2. Acute diastolic heart failure (HCC) (I50.31) Patient is on metolazone twice weekly (Wednesdays and Saturdays) and has been experiencing weight loss. Scheduled cardiology visit at the [facility] on Tuesday. - Hold Delma and Yoana temporarily. - Attend cardiology appointment on Tuesday. 3. Stage 3b chronic kidney disease (HCC) (N18.32) Patient is on Jardiance, which may contribute to diuresis and weight loss. - Continue Jardiance. - Obtain lab work at the [facility] during the cardiology visit. 4. On home oxygen therapy (Z99.81) Patient reports minimal need for oxygen, using it only during activity. Finds the oxygen equipment cumbersome and impeding mobility. - Advised patient to perform a 6-minute walk test at home to assess oxygen saturation levels without supplemental oxygen. - Referral to pulmonology for further evaluation and management. 5. Morbid (severe) obesity due to excess calories (HCC) (E66.01) Patient has lost approximately 7-10 pounds recently, likely due to diuresis from metolazone and Jardiance. Concerns about abdominal adiposity have decreased. - Continue current medications. - Monitor weight and dietary intake. 6. Essential hypertension (I10) Blood pressure management is stable. - Continue current antihypertensive regimen. 7. Lipodermatosclerosis (M79.3) Patient is receiving wound care for leg ulcers, including medicated gauze and elastic compression wraps. Scheduled to see a specialist for potential venous ablation. - Continue current wound care regimen with daily dressing changes. - Attend scheduled appointment for venous ablation evaluation. Spent 32 mins face to face and 10 mins with reviewing, and generating the note documented in this encounterAultman Or[facility]ville [facility]06-25-2025 History and physical note Author Ann Slater [facility] Note Date/Time May 15, 2025 11:5 6am [facility] [address] [place] [address] H&P Exam - Wound Care 05/15/25 1130 MR#: [id number] Acct: [id number] Name: JESS JACKSON Rep #:[id number] : 1940 84 From: Ann Slater NP [facility]IN [facility]-C PCP: Dr. Meena Guerra MD Status:REG R CR Location: History of Present Illness Date of Service: 05/15/25 History of Wound: This is a 84-year-old white female with a complex medical history presenting for follow-up on her lower leg edema and drainage. She recently was not hospitalized on 527 for dyspnea and was found to have pleural effusion during this admission she was treated with Lasix but treatment was halted because she went into renal failure she also has a history of atrial fibsand heart failure and in a sensitive situation with the fluid overload and the kidney failure her creatinine went up to 4 but now is back to normal at her baseline of 1.2 she was then discharged on April 27 but was readmitted the same day to significant dyspnea and explosive bloody diarrhea. She reports that her blood pressure dropped significantly prompting a call to emergency services. During the second admission she underwent a colonoscopy and was found to have a duodenal ulcer. She has had this cauterized twice already. She received a blood transfusion and fluids during this time also. She was back in the emergency room for yesterday for her blood pressure to be at systolic 80 or 90 she was also taken off her Cardizem lisinopril and metoprolol and metolazone 5 mg. She is anemic and also has a noted tremor. She is receiving home health care twice a week she reports a developing large blister on her left lateral legwhich was wrapped by the visiting nurse she also reports feeling cold and shaky and worsening symptoms over the past 3 weeks she has been sleeping in a chair due to respiratory issues has not been elevating her legs. Kaitlin has a history of venous insufficiency and has been wearing support hose but has not been usingthem recently due to the concerns about fluid retention. She also has a historyof diabetes and taking Ozempic she denies taking NSAIDs such as Motrin Aleve or ibuprofen. Her last A1c was in the sixes. [facility] Medical History Chronic anticoagulation Diabetes Kidney disease Non-smoker Venous (peripheral) insufficiency Atrial fibrillation CHF (congestive heart failure) Venous stasis ulcer Hyperpigmentation of skin Lipodermatosclerosis of both lower extremities Right leg swelling Left leg swelling Varicose veins of lower extremity with inflammation, 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 Chronic venous insufficiency Generalized osteoarthrosis History of right breast cancer Cardiomegaly Home Medications ?Medication ?Instructions ?Recorded ?Last Taken ?Type gabapentin 300 mg capsule 300 mg PO QHS Neuropathy 09/0604/15/25 History (Neurontin) levothyroxine 100 mcg tablet 100 mcg PO DAILY thyroid 09/30/17 04/16/25 History lisinopril 40 mg tablet 40 mg PO DAILY blood pressur e 09/30/17 04/15/25 History Held on 05/08/25. Instructions: Hold until your blood pressure is better pentoxifylline 400 mg 1 tab PO TID circulation 09/0604/16/25 History tablet,extended release Held on 05/03/25. Instructions: Resume on 05/07/25. acetaminophen 500 mg tablet 1,000 mg PO QHS PRN pain 0 01/08/25 Unknown History (Acetaminophen Extra Strength) cetirizine 10 mg tablet (24Hour 10 mg PO DAILY PRN all ergy symptoms 01/08/25 Unknown History Allergy) diosmin complex no.1 630 mg tablet 1 tab PO DAILY 12/2204/15/25 History (Vasculera) gksjsccjfxfu-spgrlusz-cpkedn 1 tab PO DAILY vitamin 04/16/25 History tablet (A Thru Z High Potency tablet) simvastatin 20 mg tablet 20 mg PO QHS cholesterol 04/15/25 History apixaban 5 mg tablet (Eliquis) 5 mg PO BID blood thinn er 90 days 01/23/25 04/16/25 Rx Held on 05/03/25. #180 tabs Instructions: Resume on 05/07/25. diltiazem HCl 240 mg 240 mg PO DAILY heart rate 3 01/23/25 04/16/25 Rx capsule,extended release 24 hr months #90 caps (Cardizem CD) Held on 05/08/25. Instructions: Hold until you are blood pressure is better biotin 5,000 mcg sublingual tablet 5,000 mcg sublingua l DAILY 04/16/25 04/15/25 History Held on 05/15/25. supplement Instructions: MD Ordered semaglutide 0.25 mg or 0.5 mg (2 0.5 mg subcut QWEEK d iabetes 04/16/25 Unknown History mg/1.5 mL) subcutaneous pen injector (Ozempic) Held on 05/15/25. Instructions: Order Completed amiodarone 200 mg tablet 200 mg PO BID #60 tabs 04/26 Unknown Rx guaifenesin 600 mg tablet, 600 mg PO BID #20 tabs 05/15 Unknown Rx extended release 12 hr (Mucinex) metolazone 5 mg tablet 5 mg PO DAILY #30 tabs 04/26 Unknown Rx Held on 05/08/25. Instructions: Hold until your blood pressure is better pantoprazole 40 mg tablet,delayed 40 mg PO BID #60 tab s 05/03/25 Unknown Rx release (Protonix) sucralfate 1 gram tablet 1 g PO TIDAC #90 tabs Unknown Rx empagliflozin 10 mg tablet 10 mg PO DAILY 05/15/25 Unk nown History (Jardiance) metoprolol tartrate 50 mg tablet 25 mg PO BID blood pr essure 05/15/25 Unknown History Held on 05/08/25. Instructions: Hold until your blood pressure is better Allergy/AdvReac Type Severity Reaction Status Date / Time enoxaparin (From Lovenox) Allergy Unknown Verified 05/15/25 08:34 oxycodone Allergy Unknown Verified 05/15/25 08:34 Penicillins (PCN) Allergy Unknown Verified 05/15/25 08:34 Family History Father Heart disease Hypertension Heart failure Mother Kidney disease Heart disease Cancer no significant family history Surgical History History of lumpectomy of right breast History of lumbar laminectomy History of total replacement of both hip joints History of total bilateral knee replacement (TKR) Social History household members: spouse Smoking Status: Never smoker alcohol intake: never substance use type: does not use ROS Constitutional Constitutional: Reports systems reviewed and no addt'l complaints, except as documented Eyes Eyes: Reports systems reviewed and no addt'l complaints, except as documented Cardiovascular Cardiovascular: Reports systems reviewed and no addt'l complaints, except as documented Respiratory/Chest Respiratory/Chest: Reports systems reviewed and no addt'l complaints, except as documented Gastrointestinal Gastrointestinal: Reports systems reviewed and no addt'l complaints, except as documented Genitourinary Genitourinary: Reports systems reviewed and no addt'l complaints, except as documented Integumentary Integumentary: Reports wounds and other Details: Large bulbous blister on left lateral lower leg. Severe edema bilateral lower legs with seepage and skin breakdown. Neurologic Neurologic: Reports systems reviewed and no addt'l complaints, except as documented Psychiatric Psychiatric: Reports systems reviewed and no addt'l complaints, except as documented Endocrine Endocrinology: Reports systems reviewed and no addt'l complaints, except as documented Hematologic/Lymphatic Hematologic/Lymphatic: Reports systems reviewed and no addt'l complaints, exceptas documented Allergic/Immunologic Allergic/Immunologic: Reports systems reviewed and no addt'l complaints, except as documented Vital Signs Vital Signs Vital Signs: 05/15/25 08:06 Temperature 97.7 F L Temperature Source Temporal Pulse Rate 108 H Respiratory Rate 18 Blood Pressure 106/58 L Blood Pressure Mean 74 Blood Pressure Source Monitor Oxygen Flow Rate (L/min) 2 Weight Weight: 1921 lb 0.819 oz Body Mass Index (BMI) 362.9 Physical Exam Const oriented x3 General Appearance: cooperative Exam Limitations: no limitations HEENT normocephalic Head and Scalp: normal to inspection Face and Sinus: normal facial exam Nose: external nose normal External Ear: external ears normal Eyes General Eye: normal appearance of both eyes Neck General: normal visual inspection Resp normal respiratory effort Effort and Inspection: able to speak in complete sentences Auscultation: clear to auscultation bilaterally Cardio no murmurs Rate: other Other Details: Irregular Rhythm: abnormal rhythm Heart Sounds: other Other Details: Atrial fibrillation GI soft to palpation Palpation: soft and no hepatosplenomegaly Extremity General Extremity: normal exam except as noted and edema bilateral Skin Rashes: rashes noted Wounds: wounds noted Wound Narrative: Open areas bilateral lower legs from her PAD and venous insufficiency both legs. Neuro oriented x3 Psych Appearance: grossly normal Speech: normal speech Thought Content: normal thought content Judgement: judgement good Debridement Note Debridement Note Wound debrided: Left lower leg venous ulcer Type of Debridement: Excisional debridement Anesthesia Used: 5% Lidocaine Gel Depth: Down to and including healthy tissue and in the subcutaneous layer Percentage of wound debrided: 100 Instrument Used: 5mm curette Tissue Removed: Fibrin and devitalized tissue Severity: Fat Layer Exposed Bleeding Controlled with: Compression and gauze Patient tolerated procedure: Patient tolerated procedure well Post-Debridement Measurements and Additional Note: Post-Debridement Measurements/Treatment - Nurse 1 - General Ulcer Assessment Start: 05/15/25 08:06 Freq: Status: Active Protocol: JORGE Activity Type Activity Date Activity User E-sign Co-sign Detail Recorded Client Recorded Date Recorded By Document 05/15/25 08:06 ALBINA [id number] 05/15/25 08:32 DL 05/15/25 08:06 - Today's Visit Information Type of service Initial Visit Arrival Mode Wheelchair Transfer Assistance Manual Transfer Assist (Other) x2 Patient Identification Verified (Name & Yes ) Patient Requires Transmission-Based No Precautions Height and Weight Height 5 ft 1 in Weight 1921 lb 0.819 oz Weight in Pounds 1921.1 lbs Body Mass Index (BMI) 362.9 BMI Classification Obese Vital Signs Temperature (97.8 F-99.1 F) 97.7 F L Temperature Source Temporal Pulse Rate (60-100) 108 H Pulse Location Monitor Respiratory Rate (12-18) 18 Respiratory rate source Observation O2 L/MIN 2 Blood Pressure (90/60-120/80) 106/58 L Blood Pressure Mean 74 Source Monitor Pain Scale: 0-10 Numeric Is Patient Pain Free? Yes Lower Extremity Assessment/ Foot Assessment/ Toe Nail Assessment Left -Posterior Tibial Palpable No -Dorsalis Pedis Palpable No -Dorsalis Pedis Doppler Monophasic -Extremity Color Hemosiderin -Hair Growth on Legs No -Hair Growth on Toes No -Temperature of Extremity Warm -Capillary Refill Greater than 3 Seconds -Dependent Rubor No -Blanched when Elevated No -Lipodermatosclerosis No -Other Deformity No -Prior Foot Ulcer No -Charcot Joint No -Prior Amputation No -Thick No -Discolored No -Deformed No -Improper Length & Hygeine No Right -Posterior Tibial Palpable No -Posterior Tibial Doppler Monophasic -Dorsalis Pedis Palpable No -Dorsalis Pedis Doppler Monophasic -Extremity Color Hemosiderin -Hair Growth on Legs No -Hair Growth on Toes No -Temperature of Extremity Warm -Capillary Refill Less than 3 Seconds -Dependent Rubor No -Blanched when Elevated No -Lipodermatosclerosis No -Other Deformity No -Prior Foot Ulcer No -Charcot Joint No -Prior Amputation No -Thick No -Discolored No -Deformed No -Improper Length & Hygeine No Neuropathy Assessment Feet - Top Side and Bottom <Entered> (a) Communication Assessment Preferred language Tajik Able to Read Yes Able to Write Yes Right Hearing Abillity Use of Hearing Aid Left Hearing Abillity Use of Hearing Aid Visual Assistive Devices Glasses Teaching Assessment Preferences Verbal,Written, Demonstration Barriers to Learning None Readiness To Learn Good Willingness to Engage in Self Management Med Activies Readiness to Engage in Self Management Med Activities Anxiety Level Calm Cooperation Cooperative Perception Coherent Interest in Health Problem Asks Questions Education Importance Acknowledges Need Does Patient Smoke tobacco or other No substances Smoking Status Never smoker Is Patient Diabetic Yes (a) 1 - + WC - Nurse 1 - General Ulcer Measurement Start: 05/15/25 08:06 Freq: Status: Active Protocol: Activity Type Activity Date Activity User E-sign Co-sign Detail Recorded Client Recorded Date Recorded By Document 05/15/25 08:06 DL [id number] 05/15/25 08:32 DL 05/15/25 08:06 Wound Center Nurse 1 #2 Right Lateral Lower Extremity CLUSTER -Current Size (cm) - Length 2 -Current Size (cm) - Width 1.8 -Current Size (cm) - Depth 0.1 -Total Square Cm 3.6 -Photo Taken Yes -Exudate Amt Medium -Exudate Type Serosanguineous -Wound Margin Distinct, Outline Attached -Granulation Amt Large (67-100%) -Granulation Quality [place] -Necrosis Amt Small (1-33%) -Necrotic Tissue Type Adherent Slough -Structure Exposed N/A -Texture (Deborah-wound Skin Appearance) Localized Edema ,Scarring -Moisture (Deborah-wound Skin Appearance) Weeping -Color (Deborah-wound Skin Appearance) Hemosiderin Staining -Temperature (Deborah-wound Skin No Abnormality Appearance) (Pt Warm) -Ulcer Cleansing Soap and Water -Foul Odor after Cleansing No -Anesthetic Used 5% Lidocaine Gel Right Calf (cm) 42 Right Ankle (cm) 22.7 Left Calf (cm) 44.5 Left Ankle (cm) 25 WC - Nurse 2 - General Ulcer CM Notes Start: 05/15/25 08:06 Freq: Status: Active Protocol: Activity Type Activity Date Activity User E-sign Co-sign Detail Recorded Client Recorded Date Recorded By Document 05/15/25 08:53 [facility] [id number] 05/15/25 09:12 [facility] 05/15/25 08:53 Wound Center Nurse 2 #3- L LAT LE BLISTER AREA -Time 08:56 -Correct Patient Yes -Correct Side, Site, Position Yes -Correct Procedure Yes -Procedure Performed Yes -Type of Procedure Debridement -Clinical Debridement Subcutaneous -Tissue Removed Subcutaneous -Post Debridement (cm) - Length 4.5 -Post Debridement (cm) - Width 7.4 -Post Debridement (cm) - Depth 0.2 -Total Square (Post) (cm) 33.30 -Area of Debridement (cm) - Length 4.5 -Area of Debridement (cm) - Width 7.4 -Total Square (Area) (cm) 33.30 -Tunneling No -Undermining/Tunneling No -Circular Undermining No -Wound/Ulcer Outcome Not Healed -Ulcer Cleansing Rinsed/ Irrigated with Saline -Foul Odor after Cleansing No -Bioengineered Tissue No -Bleeding Controlled with Pressure -Treatment Response Procedure Tolerated Well -Debridement - Subq, 1st 20sq cm Yes -Debridement, SubQ, ea addt'l 20sq cm 3 or part thereof #2 Right Lateral Lower Extremity CLUSTER -Time 08:54 -Correct Patient Yes -Correct Side, Site, Position Yes -Correct Procedure Yes -Procedure Performed Yes -Type of Procedure Debridement -Clinical Debridement Subcutaneous -Tissue Removed Subcutaneous -Post Debridement (cm) - Length 5 -Post Debridement (cm) - Width 6.5 -Post Debridement (cm) - Depth 0.1 -Total Square (Post) (cm) 32.5 -Area of Debridement (cm) - Length 5 -Area of Debridement (cm) - Width 6.5 -Total Square (Area) (cm) 32.5 -Tunneling No -Undermining/Tunneling No -Circular Undermining No -Wound/Ulcer Outcome Not Healed -Ulcer Cleansing Rinsed/ Irrigated with Saline -Foul Odor after Cleansing No -Bioengineered Tissue No -Bleeding Controlled with Pressure -Treatment Response Procedure Tolerated Well -Debridement - Subq, 1st 20sq cm No Pain Scale: 0-10 Numeric Is Patient Pain Free? Yes WC - Nurse 3 - General Ulcer D/C NN Start: 05/15/25 08:06 Freq: Status: Active Protocol: Activity Type Activity Date Activity User E-sign Co-sign Detail Recorded Client Recorded Date Recorded By Document 05/15/25 09:28 ML [id number] 05/15/25 09:30 ML 05/15/25 09:28 Wound Care Center Nurse 3 #3- L LAT LE BLISTER AREA -Ulcer Cleansing Rinsed/ Irrigated with Saline -Primary Dressing Applied Other -Other Dressing XEROFORM -Primary Dressing Covered/Secured with Dry Gauze & Roll Gauze, Secured with Tape #2 Right Lateral Lower Extremity CLUSTER -Ulcer Cleansing Rinsed/ Irrigated with Saline -Primary Dressing Applied Other -Other Dressing XEROFORM -Primary Dressing Covered/Secured with Dry Gauze & Roll Gauze, Secured with Tape BLE -Tubular Bandage Single Layer -Size of Tubigrip Used Size E -Size E ($) 1 Pain Scale: 0-10 Numeric Is Patient Pain Free? Yes Additional Wound Wound debrided: Right lower leg venous insufficiency Type of Debridement: Excisional debridement Depth: Down to and including healthy tissue and in the subcutaneous layer Percentage of wound debrided: 100 Instrument Used: 5mm curette Tissue Removed: Fibrin and devitalized tissue Severity: Fat Layer Exposed Amount of bleeding with debridement: None Bleeding Controlled with: Compression and gauze Patient tolerated procedure: Patient tolerated procedure well Assessment/Plan Assessment/Plan (1) Atrial fibrillation: CODE(S): I48.91 - Unspecified atrial fibrillation QUALIFIERS: Atrial fibrillation type: unspecified Qualified Code(s): I48.91 - Unspecified atrial fibrillation (2) Lymphedema: CODE(S): I89.0 - Lymphedema, not elsewhere classified (3) PAD (peripheral artery disease): CODE(S): I73.9 - Peripheral vascular disease, unspecified (4) 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: CODE(S): I83.029 - Varicose veins of left lower extremity with ulcer of unspecified site PLAN: Wash leg with Hibiclens or antibacterial soap and water pat dry and apply Xeroform to open wound areas cover with ABDs and Olu and double layer Tubigrip's every day (5) Venous ulcer of right lower extremity with varicose veins: CODE(S): I83.019 - Varicose veins of right lower extremity with ulcer of unspecified site; L97.919 - Non-pressure chronic ulcer of unspecified part of right lower leg with unspecified severity PLAN: Wash leg with antibacterial soap and water or Hibiclens pat dry and apply Xeroform to all open areas and cover with ABD pads and Olu. And applied double layer Tubigrip every day (6) Type 2 diabetes mellitus: CODE(S): E11.9 - Type 2 diabetes mellitus without complications QUALIFIERS: Diabetes mellitus complication status: with unspecified complications Diabetes mellitus superintendent container terminal insulin use: unspecified superintendent container terminal insulin use status Qualified Code(s): E11.8 - Type 2 diabetes mellitus with unspecified complications PLAN: Continue to monitor and control blood sugars 05/15/25 1156 <Electronically signed by Ann Slater NP RESIN MAKER-C> Cosigner Signature (if applicable): CC: ~ Signed [facility] Work Phone: 1(704) 178-409806-25-2025 NoteAcmc [facility] System06-25-2025 History of Present illness Narrative* Stacey Lopez RN - 05/15/2025 12:39 PM EDT Transitional Care Management (TCM) Follow-Up Note PCP Update / Actionable Items N/A - No specialty updates needed Patient Source: In-Network Discharge Follow-up outreach: TCM enrolled patient Outreach Summary: Has appt with Wound clinic for weeping blisters to maurice GUERRERO. This is a chronic problem that was occurring prior to hospitalization. Denies CP, new or worsening Shortness of Breath, or edema Recommended if any new or worsening symptoms contact PCP Contact: Contact made with patient: Yes Spoke to: Patient Validation: Validated the person spoken to is actively involved in the patient's care. The patient was identified by Name and Date of . I'd like to get an update on how you're doing since our last phone call. Is now a good time to talk? Yes Symptoms: Are you feeling about the same, better or worse since leaving the hospital? Better Weekly Outreach: 1st Outreach Medications: Do you have any questions about taking your medications, including which medications you should be on, or do you need refills on your medications? No Patient Questions / Concerns: Do you have any questions related to your discharge? No Appointment / TCM Follow-Up: Have you had a follow-up visit with your Primary Care Provider or Specialist since you were discharged? Yes Do you need any assistance with scheduling or changing your follow-up appointments? Patient declines appointment EDUCATION: Patient and family educated on issues/questions related to reason for admission, transition of care topics, and follow-up needed upon discharge. Stacey Lopez RN May 15, 2025 12:40 PM documented in this encounterA[facility]06-[facility] Telephone encounter Note * Telephone Encounter - Elenita Ponce RN - 05/15/2025 12:30 PM EDT Nile GRACIA with [facility] HH calls to let provider know that referral to [facility] Wound Center was not received. Re-faxed to [phone] per request with confirmation fax was received. Elenita Ponce RN [facility]06-25-2025 Miscellaneous Notes* Telephone Encounter - Elenita Ponce RN - 05/15/2025 12:30 PM EDT Nile GRACIA with [facility] calls to let provider know that referral to [facility] Wound Center was not received. Re-faxed to [phone] per request with confirmation fax was received. Elenita Ponce RN documented in this encounterA[facility]man [facility]06-25-2025 Telephone encounter Note * Telephone Encounter - Sharon Hadley LPN - 05/15/2025 9:41 AM EDT Phoned Sarita and left detailed message on voicemail with notes below from Dr Guerra. [facility]06-25-2025 Miscellaneous Notes* Telephone Encounter - Sharon Hadley LPN - 05/15/2025 9:41 AM EDT Phoned Sarita and left detailed message on voicemail with notes below from Dr Guerra. * Telephone Encounter - Meena Guerra MD - 05/14/2025 4:50 PM EDT ABD and gauze with wraps. * Telephone Encounter - Joann Somers RN - 05/14/2025 12:[address] Guerra: 1) Pt states she hasn't checked her blood sugar for years and isn't sure if her meter works. She will check and see and will follow up with pt on Tuesday to see if it is still working. Pt wondering ifit isn't working, will Dr. Guerra need her to check her sugars and if so, pt will need new supplies sent to [facility] in [place]. 2) Sarita HAYES nurse wondering what type of dressing Dr. Guerra would like for them to be putting on pt's legs until she is seen by Wound Center. Adaptic, ABD & gauze? Does she want emilie wraps on them? Wound center referral, demographics sheet, phone encounter, copy of insurance card and last 2 OV notes sent to Wound Center at [facility]. * Telephone Encounter - Kimberly Gallagher - 05/14/2025 9:23 AM EDT Spoke with patient and scheduled Kimberly Gallagher * Telephone Encounter - Kimberly Gallagher - 05/11/2025 8:23 AM EDT Please review and advise Kimberly Gallagher * Telephone Encounter - Joann Somers RN - 05/10/2025 5:24 PM EDT Called Sarita stanford with HH and also pt. Given information below. Questions for Dr. Guerra: 1) Pt states she hasn't checked her blood sugar for years and isn't sure if her meter works. She will check and see and will follow up with pt on Tuesday to see if it is still working. Pt wondering ifit isn't working, will Dr. Guerra need her to check her sugars and if so, pt will need new supplies sent to [facility] in [place]. 2) Did not see referral order for Wound Therapy. Pended one. Pt requests to go back to [facility] Wound Center as she has been seen there before. Pt is requesting not to see Dr. Carpenter. Prefers Dr. Argenitna Tellez. Notes added to order. 3) Sarita HAYES nurse wondering what type of dressing Dr. Guerra would like for them to be putting on pt's legs until she is seen by Wound Center. Adaptic, ABD & gauze? Does she want emilie wraps on them? Pt aware that we will fax order to [facility] Wound center and that she will be called to set up iron infusions. * Telephone Encounter - Meena Guerra MD - 05/10/2025 4:31 PM EDT Please note my answers to thee questions are not be bolded , you will find them next to the question. Let me know if you have questions. Regards, Meena Guerra MD Sarita nurse calling from [facility] with questions for provider. Sarita states pt told her she has had a lot of med changes through hospital admissions, ER visits, & doctor's appointments. Multiple questions with medications after reviewing [facility] ER records from 05/08, OV notes from yesterday and today with Dr. Guerra. Also Sarita states that pt has pitting edema with significant weeping/leakage of fluid. HH nurse changed dressing this past Tuesday. Sarita changed again today. (Sarita did not mention that any area was reddened or looked infected). She states that her gauze dressing was totally saturated as were her pants. Sarita is needing orders for dressings and how often to change them. Also question on Azithromycin 250 mg-med list states to take as directed. Called and confirmed with [facility] pharmacy that antibiotic was picked up yesterday and the orders are once dailyand was given 4 tablets. Sarita unsure if pt has antibiotic at home Also unsure if she has the Pantoprazole 40 mg and the Carafate 1 gm tablets. Called and spoke with pt and she states she is taking Azithromycin once a day and has 2 more doses. Pt also states she has the Pantoprazole 40 mg and is taking it twice daily and has the Carafate and is taking that 3 times a day before meals. 1) Pt was previously taking a probiotic. Does Dr. Guerra want her to restart that? - yes 2) Sarita wanting to know how often Dr. Guerra wants pt checking her blood sugar? - 2 times a day for a week: fasting and 2 hrs either after BF, Lunch or dinner 3) Orders for dressings for pt's legs that are draining a large amount? - Every other day and would like patient to see wound care, orders placed 4) Need confirmation of Metoprolol dosage. Per note yesterday, Dr. Guerra had pt restart and documented pt to take 25 mg twice a day. Pt has 50 mg tablets at home. Per patient instructions from yesterday's note, Dr. Guerra states please split your current 50 mg tablets in half to achieve the correct dose. Today's note states to take 12.5 mg twice a day in several places. Which is correct dosage that pt should be taking? Also Sarita asking about hold numbers for heart rate or BP reading? - she needs to take 25 mgs 2 times a day 5) Per Dr. Guerra's note yesterday, pt was to hold Eliquis until further evaluation by cardiology. Today's note states pt is to restart her Eliquis on 05/17. Cardiology appt is 05/21 at [facility]. Confirmation if pt is to restart on 05/17? - as per today note, restart on 05/17. 6) Pt states she had been taking Trental 400 mg CR tablets 3 times a day but it was put on hold at last ER visit on 05/08 along with her Eliquis. Pt needs to know if she is to restart the Trental and if so, when? - hold trental 7) 05/09 chart note says to resume Ozempic. Today's note states to continue to hold it. Confirmation? - Hold Ozempic 8) Iron infusions? Orders? - Will place orders 9) Dr. Guerra is having pt restart her Metolazone 5 mg on Tue and Tue. Also pt is to be doing daily weights and if greater than 3# weight gain, pt is instructed to take an additional dose. Pt asking is for more clarification on when to take an additional dose? If she takes a dose on Tuesday and then Tuesday has a 3# weight gain, she would take one. Would she just take it on the day she notes the 3# weight gain? And if she has a 3# weight gain 2 days in a row, take an additional one both of thosedays? - take it scheduled on Tuesday and Tuesday and any day that she has 3 pounds from her baseline, even if it is for 3 consecutive days, as long as the 3 pounds are over, she needs to take it. 10) Confirming that pt is to continue to hold Ozempic and will be starting Jardiance 10 mg daily Tuesday or Tuesday? - yes, hold ozempic and start jardiance 11) When should pt repeat her labwork? - will decide on follow up 12) Per note today, pt is to follow-up in one week with a virtual visit. Needs appt scheduled. please assist in scheduling 13) Nephrology consult was documented in yesterday's office visit. Need order placed? - hold off. RegardsMeena MD * Telephone Encounter - Joann Somers RN - 05/10/2025 2:22 PM EDT Sarita nurse calling from [facility] with questions for provider. Sarita states pt told her she has had a lot of med changes through hospital admissions, ER visits, & doctor's appointments. Multiple questions with medications after reviewing [facility] ER records from 05/08, OV notes from yesterday and today with Dr. Guerra. Also Sarita states that pt has pitting edema with significant weeping/leakage of fluid. HH nurse changed dressing this past Tuesday. Sarita changed again today. (Sarita did not mention that any area was reddened or looked infected). She states that her gauze dressing was totally saturated as were her pants. Sarita is needing orders for dressings and how often to change them. Also question on Azithromycin 250 mg-med list states to take as directed. Called and confirmed with [facility] pharmacy that antibiotic was picked up yesterday and the orders are once dailyand was given 4 tablets. Sarita unsure if pt has antibiotic at home Also unsure if she has the Pantoprazole 40 mg and the Carafate 1 gm tablets. Called and spoke with pt and she states she is taking Azithromycin once a day and has 2 more doses. Pt also states she has the Pantoprazole 40 mg and is taking it twice daily and has the Carafate and is taking that 3 times a day before meals. 1) Pt was previously taking a probiotic. Does Dr. Guerra want her to restart that? 2) Sarita wanting to know how often Dr. Guerra wants pt checking her blood sugar? 3) Orders for dressings for pt's legs that are draining a large amount? 4) Need confirmation of Metoprolol dosage. Per note yesterday, Dr. Guerra had pt restart and documented pt to take 25 mg twice a day. Pt has 50 mg tablets at home. Per patient instructions from yesterday's note, Dr. Guerra states please split your current 50 mg tablets in half to achieve the correct dose. Today's note states to take 12.5 mg twice a day in several places. Which is correct dosage that pt should be taking? Also Sarita asking about hold numbers for heart rate or BP reading? 5) Per Dr. Guerra's note yesterday, pt was to hold Eliquis until further evaluation by cardiology. Today's note states pt is to restart her Eliquis on 05/17. Cardiology appt is 05/21 at [facility]. Confirmation if pt is to restart on 05/17? 6) Pt states she had been taking Trental 400 mg CR tablets 3 times a day but it was put on hold at last ER visit on 05/08 along with her Eliquis. Pt needs to know if she is to restart the Trental and if so, when? 7) 05/09 chart note says to resume Ozempic. Today's note states to continue to hold it. Confirmation? 8) Iron infusions? Orders? 9) Dr. Guerra is having pt restart her Metolazone 5 mg on Tue and Tue. Also pt is to be doing daily weights and if greater than 3# weight gain, pt is instructed to take an additional dose. Pt asking is for more clarification on when to take an additional dose? If she takes a dose on Tuesday and then Tuesday has a 3# weight gain, she would take one. Would she just take it on the day she notes the 3# weight gain? And if she has a 3# weight gain 2 days in a row, take an additional one both of ? 10) Confirming that pt is to continue to hold Ozempic and will be starting Jardiance 10 mg daily Tuesday or Tuesday? 11) When should pt repeat her labwork? 12) Per note today, pt is to follow-up in one week with a virtual visit. Needs appt scheduled. 13) Nephrology consult was documented in yesterday's office visit. Need order placed? Please call both Sarita nurse with [facility] (okay to LM on secure voicemail) and pt back with clarification of above orders/questions. documented in this encounterA[facility]06-24-2025 Telephone encounter Note * Telephone Encounter - Meena Guerra MD - 05/14/2025 4:50 PM EDT ABD and gauze with wraps. [facility]06-24-[facility] Telephone encounter Note* Telephone Encounter - Joann Somers RN - 05/14/2025 12:[address] Guerra: 1) Pt states she hasn't checked her blood sugar for years and isn't sure if her meter works. She will check and see and will follow up with pt on Tuesday to see if it is still working. Pt wondering ifit isn't working, will Dr. Guerra need her to check her sugars and if so, pt will need new supplies sent to [facility] in [place]. 2) Sarita nurse wondering what type of dressing Dr. Guerra would like for them to be putting on pt's legs until she is seen by Wound Center. Adaptic, ABD & gauze? Does she want emilie wraps on them? Wound center referral, demographics sheet, phone encounter, copy of insurance card and last 2 OV notes sent to Wound Center at [facility]. [facility]06-24-2025 Telephone encounter Note* Telephone Encounter - Kimberly Gallagher - 05/14/2025 9:23 AM EDT Spoke with patient and scheduled Kimberly Gallagher [facility]06-23-2025 Telephone encounter Note* Telephone Encounter - Meena Guerra MD - 05/13/2025 4:56 PM EDT Noted. Meena Asif MD [facility]06-23-2025 Miscellaneous Notes* Telephone Encounter - Meena Guerra MD - 05/13/2025 4:56 PM EDT Noted. Meena Asif MD * Telephone Encounter - Sharon Hadley LPN - 05/13/2025 2:31 PM EDT Sydni from [facility] Home Health PT calling patient bp at 130 pm at rest was 99/60 pulse 113. Patient did not take her Metoprolol today due to bp. With walking her heart rate went to 145 with her oxygen at 2 liters, SPO2 was 90%, patient non symptomatic. documented in this encounterA[facility] Telephone encounter Note * Telephone Encounter - Sharon Hadley LPN - 05/13/2025 2:31 PM EDT Sydni from [facility] Home Health PT calling patient bp at 130 pm at rest was 99/60 pulse 113. Patient did not take her Metoprolol today due to bp. With walking her heart rate went to 145 with her oxygen at 2 liters, SPO2 was 90%, patient non symptomatic. [place] [id number] Telephone encounter Note* Telephone Encounter - Kimberly Gallagher - 05/11/2025 8:23 AM EDT Please review and advise Kimberly Gallagher [facility]06-20-2025 Telephone encounter Note* Telephone Encounter - Joann Somers RN - 05/10/2025 5:24 PM EDT Called Sarita nurse with HH and also pt. Given information below. Questions for Dr. Guerra: 1) Pt states she hasn't checked her blood sugar for years and isn't sure if her meter works. She will check and see and will follow up with pt on Tuesday to see if it is still working. Pt wondering ifit isn't working, will Dr. Guerra need her to check her sugars and if so, pt will need new supplies sent to [facility] in [place]. 2) Did not see referral order for Wound Therapy. Pended one. Pt requests to go back to [facility] Wound Center as she has been seen there before. Pt is requesting not to see Dr. Carpenter. Prefers Dr. Argentina Tellez. Notes added to order. 3) [facility]ita nurse wondering what type of dressing Dr. Guerra would like for them to be putting on pt's legs until she is seen by Wound Center. Adaptic, ABD & gauze? Does she want emilie wraps on them? Pt aware that we will fax order to [facility] Wound center and that she will be called to set up iron infusions. [facility]06-20-2025 Note* Addendum Note - Meena Guerra MD - 05/10/2025 5:10 PM EDTAddended by: MEENA GUERRA on: 05/10/2025 05:10 PM Modules accepted: Orders [facility]06-20-2025 Miscellaneous Notes* Addendum Note - Meena Guerra MD - 05/10/2025 5:10 PM EDTAddended by: MEENA GUERRA on: 05/10/2025 05:10 PM Modules accepted: Orders documented in this encounterA[facility]06-[facility] Telephone encounter Note * Telephone Encounter - Meena Guerra MD - 05/10/2025 4:31 PM EDT Please note my answers to thee questions are not be bolded , you will find them next to the question. Let me know if you have questions. Regards, Meena Guerra MD Sarita nurse calling from [facility] HH with questions for provider. Sarita states pt told her she has had a lot of med changes through hospital admissions, ER visits, & doctor's appointments. Multiple questions with medications after reviewing [facility] ER records from 05/08, OV notes from yesterday and today with Dr. Guerra. Also Sarita states that pt has pitting edema with significant weeping/leakage of fluid. HH nurse changed dressing this past Tuesday. Sarita changed again today. (Sarita did not mention that any area was reddened or looked infected). She states that her gauze dressing was totally saturated as were her pants. Sarita is needing orders for dressings and how often to change them. Also question on Azithromycin 250 mg-med list states to take as directed. Called and confirmed with [facility] pharmacy that antibiotic was picked up yesterday and the orders are once dailyand was given 4 tablets. Sarita unsure if pt has antibiotic at home Also unsure if she has the Pantoprazole 40 mg and the Carafate 1 gm tablets. Called and spoke with pt and she states she is taking Azithromycin once a day and has 2 more doses. Pt also states she has the Pantoprazole 40 mg and is taking it twice daily and has the Carafate and is taking that 3 times a day before meals. 1) Pt was previously taking a probiotic. Does Dr. Guerra want her to restart that? - yes 2) Sarita wanting to know how often Dr. Guerra wants pt checking her blood sugar? - 2 times a day for a week: fasting and 2 hrs either after BF, Lunch or dinner 3) Orders for dressings for pt's legs that are draining a large amount? - Every other day and would like patient to see wound care, orders placed 4) Need confirmation of Metoprolol dosage. Per note yesterday, Dr. Guerra had pt restart and documented pt to take 25 mg twice a day. Pt has 50 mg tablets at home. Per patient instructions from yesterday's note, Dr. Guerra states please split your current 50 mg tablets in half to achieve the correct dose. Today's note states to take 12.5 mg twice a day in several places. Which is correct dosage that pt should be taking? Also Sarita asking about hold numbers for heart rate or BP reading? - she needs to take 25 mgs 2 times a day 5) Per Dr. Guerra's note yesterday, pt was to hold Eliquis until further evaluation by cardiology. Today's note states pt is to restart her Eliquis on 05/17. Cardiology appt is 05/21 at [facility]. Confirmation if pt is to restart on 05/17? - as per today note, restart on 05/17. 6) Pt states she had been taking Trental 400 mg CR tablets 3 times a day but it was put on hold at last ER visit on 05/08 along with her Eliquis. Pt needs to know if she is to restart the Trental and if so, when? - hold trental 7) 05/09 chart note says to resume Ozempic. Today's note states to continue to hold it. Confirmation? - Hold Ozempic 8) Iron infusions? Orders? - Will place orders 9) Dr. Guerra is having pt restart her Metolazone 5 mg on Tue and Tue. Also pt is to be doing daily weights and if greater than 3# weight gain, pt is instructed to take an additional dose. Pt asking is for more clarification on when to take an additional dose? If she takes a dose on Tuesday and then Tuesday has a 3# weight gain, she would take one. Would she just take it on the day she notes the 3# weight gain? And if she has a 3# weight gain 2 days in a row, take an additional one both of thosedays? - take it scheduled on Tuesday and Tuesday and any day that she has 3 pounds from her baseline, even if it is for 3 consecutive days, as long as the 3 pounds are over, she needs to take it. 10) Confirming that pt is to continue to hold Ozempic and will be starting Jardiance 10 mg daily Tuesday or Tuesday? - yes, hold ozempic and start jardiance 11) When should pt repeat her labwork? - will decide on follow up 12) Per note today, pt is to follow-up in one week with a virtual visit. Needs appt scheduled. please assist in scheduling 13) Nephrology consult was documented in yesterday's office visit. Need order placed? - hold off. Regards, Meena Guerra MD [facility]06-20-2025 Telephone encounter Note* Telephone Encounter - Joann Somers RN - 05/10/2025 2:22 PM EDT Sarita nurse calling from [facility] HH with questions for provider. Sarita states pt told her she has had a lot of med changes through hospital admissions, ER visits, & doctor's appointments. Multiple questions with medications after reviewing [facility] ER records from 05/08, OV notes from yesterday and today with Dr. Guerra. Also Sarita states that pt has pitting edema with significant weeping/leakage of fluid. HH nurse changed dressing this past Tuesday. Sarita changed again today. (Sarita did not mention that any area was reddened or looked infected). She states that her gauze dressing was totally saturated as were her pants. Sarita is needing orders for dressings and how often to change them. Also question on Azithromycin 250 mg-med list states to take as directed. Called and confirmed with [facility] pharmacy that antibiotic was picked up yesterday and the orders are once dailyand was given 4 tablets. Sarita unsure if pt has antibiotic at home Also unsure if she has the Pantoprazole 40 mg and the Carafate 1 gm tablets. Called and spoke with pt and she states she is taking Azithromycin once a day and has 2 more doses. Pt also states she has the Pantoprazole 40 mg and is taking it twice daily and has the Carafate and is taking that 3 times a day before meals. 1) Pt was previously taking a probiotic. Does Dr. Guerra want her to restart that? 2) Sarita wanting to know how often Dr. Guerra wants pt checking her blood sugar? 3) Orders for dressings for pt's legs that are draining a large amount? 4) Need confirmation of Metoprolol dosage. Per note yesterday, Dr. Guerra had pt restart and documented pt to take 25 mg twice a day. Pt has 50 mg tablets at home. Per patient instructions from yesterday's note, Dr. Guerra states please split your current 50 mg tablets in half to achieve the correct dose. Today's note states to take 12.5 mg twice a day in several places. Which is correct dosage that pt should be taking? Also Sarita asking about hold numbers for heart rate or BP reading? 5) Per Dr. Guerra's note yesterday, pt was to hold Eliquis until further evaluation by cardiology. Today's note states pt is to restart her Eliquis on 05/17. Cardiology appt is 05/21 at [facility]. Confirmation if pt is to restart on 05/17? 6) Pt states she had been taking Trental 400 mg CR tablets 3 times a day but it was put on hold at last ER visit on 05/08 along with her Eliquis. Pt needs to know if she is to restart the Trental and if so, when? 7) 05/09 chart note says to resume Ozempic. Today's note states to continue to hold it. Confirmation? 8) Iron infusions? Orders? 9) Dr. Guerra is having pt restart her Metolazone 5 mg on Tue and Tue. Also pt is to be doing daily weights and if greater than 3# weight gain, pt is instructed to take an additional dose. Pt asking is for more clarification on when to take an additional dose? If she takes a dose on Tuesday and then Tuesday has a 3# weight gain, she would take one. Would she just take it on the day she notes the 3# weight gain? And if she has a 3# weight gain 2 days in a row, take an additional one both of thosedays? 10) Confirming that pt is to continue to hold Ozempic and will be starting Jardiance 10 mg daily Tuesday or Tuesday? 11) When should pt repeat her labwork? 12) Per note today, pt is to follow-up in one week with a virtual visit. Needs appt scheduled. 13) Nephrology consult was documented in yesterday's office visit. Need order placed? Please call both Sarita nurse with [facility] (okay to LM on secure voicemail) and pt back with clarification of above orders/questions. [facility]06-20-2025 [facility]06-20-[facility] History of Present illness Narrative* Meena Guerra MD - 05/10/2025 12:04 PM EDT Reason for Visit Follow up This is a virtual visit HPI Kaitlin Jackson is a 84-year-old female with a history of A-fib, presenting for follow-up on recent lab results and medication management. Kaitlin reports feeling well with current blood pressure readings of 108/60 mmHg, consistent with previous readings. She notes improvement from prior readings in the 80s and 90s, which occurred when shewas on multiple medications. She is currently taking metoprolol 25.5 mg BID, which was initiated during the last visit. Her heart rate is 93 bpm, improved from a previous rate of 120 bpm. Recent lab results show a creatinine level of 1.31 mg/dL, an increase from previous levels, and a GFR of 40 mL/min/1.73m . Iron levels are low, with a high ferritin level and low TAV and iron saturation. Glucose level is 106 mg/dL. Kaitlin was previously on metolazone 5 mg, which was effective until she doubled the dose as per instructions, leading to decreased efficacy. She was also on Lasix, which was discontinued due to kidney issues. She is currently not on any diuretics and expresses concern about fluid retention in the abdomen. She is also not taking Norvasc or Eliquis, as per hospital instructions, and has an upcoming cardiology appointment at the [facility] on May 21. She is currently taking metformin 500 mg once daily, reduced from a previous dose of 500 mg BID, and is not taking Ozempic. Kaitlin reports increased intestinal gas, which is not painful or disruptive to sleep. She is on a low-salt, low-carb diet and is undergoing physical therapy. Social History Tobacco Use Smoking status: Never Smokeless tobacco: Never Vaping Use Vaping status: Never Used Substance Use Topics Alcohol use: Yes Comment: Occasional Wine Drug use: Never Past medical history, appointments, medications, allergies reviewed. Pertinent Lab/Diagnostic Studies are reviewed and discussed today Current Outpatient Medications: metoprolol tartrate, short acting, (LOPRESSOR) 50 mg tablet metOLazone (ZAROXOLYN) 5 mg tablet [START ON 05/17/2025] apixaban (ELIQUIS) 5 mg tab(s) empagliflozin (JARDIANCE) [address] (PROTONIX) 40 mg tablet sucralfate (CARAFATE) 1 gram tablet amiodarone (PACERONE) 200 mg tablet azithromycin (ZITHROMAX) 250 mg tablet OXYGEN, HOME THERAPY, simvastatin (ZOCOR) 20 mg tablet gabapentin (NEURONTIN) 300 mg capsule levothyroxine (SYNTHROID) 100 mcg tablet semaglutide (OZEMPIC) 0.25 mg or 0.5 mg (2 mg/3 mL) pen metFORMIN ER (GLUCOPHAGE XR) 500 mg 24 hr tablet Cetirizine 10 mg cap ALIGN PROBIOTIC RESISTANCE CAPSULE azelastine-fluticasone (DYMISTA) 137-50 mcg/spray nasal spray amLODIPine (NORVASC) 5 mg tablet pentoxifylline ER (TRENTAL) 400 mg CR tablet diosmin complex no.1 (VASCULERA) 630 mg tab mupirocin (BACTROBAN) 2 % ointment blood sugar diagnostic (ONE TOUCH VERIO) test strip Lancets (ONE TOUCH DELICA) lancets aspirin, enteric coated 81 mg EC tablet multivitamins(DAILY MULTIVITAMIN TAB) Health Maintenance Shingrix Vaccine(2 of 3) DTaP,Tdap,Td Vaccine(2 - Td or Tdap) Covid-19 Vaccine(2023- season) Advance Directive Discussion Medicare Advantage Annual Wellness Visit Depression Screening Anxiety Screening@ Review Of Systems Gastrointestinal: (+) abdominal distension, (+) flatulence, (-) abdominal pain Physical Exam There were no vitals taken for this visit. GENERAL: NAD, alert and oriented. SKIN: Unremarkable, no rash or skin lesions. HEAD: Normocephalic. EYES: PERRLA, EOMI, conjunctiva clear. NECK: Supple, no lymphadenopathy, normal thyroid, no carotid bruits. Labs: - Beta levels: Normal - Iron: Low - Ferritin: Elevated - TAV: Low - GFR: 40 - Creatinine: 1.31 mg/dL - Glucose: 106 mg/dL Assessment and Plan 1. Atrial fibrillation, unspecified type (HCC) (I48.91) Heart rate has improved to 93 bpm from previous 120 bpm. Currently not on Eliquis as per hospital recommendation. - Restart Eliquis on 05/17. - Continue metoprolol 25 mg BID. - Follow-up with cardiology at [facility] on 05/21 to evaluate for potential valvular issues. 2. Acute diastolic heart failure (HCC) (I50.31) Currently experiencing fluid retention. Previously on metolazone 5 mg, but diuretics were held due to renal concerns. - Initiate metolazone 5 mg on Wednesdays and Saturdays. - Monitor weight daily; if weight increases by more than 3 lbs, take additional dose of metolazone on that day - Maintain low-salt diet. 3. Type 2 diabetes mellitus without complication, without long-term current use of insulin (HCC) (E11.9) Glucose level at 106 mg/dL. Currently on metformin 500 mg daily; Ozempic is on hold. - Continue metformin 500 mg daily. - Hold Ozempic until further improvement in renal function. - Initiate Jardiance 10 mg daily after 3-4 days. 4. Essential (primary) hypertension (I10) Blood pressure is stable at 108/60 mmHg on current regimen. - Continue metoprolol 25 mg BID. - Monitor blood pressure regularly. 5. 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 - Follow-up with cardiology at [facility] on 05/21. 6. Stage 3b chronic kidney disease (HCC) (N18.32) GFR is 40 mL/min/1.73m , creatinine is 1.31 mg/dL. Iron levels are low, with high ferritin and low TIBC. - Ordered 5 iron infusions to be administered at the [facility]. - Monitor renal function closely. - Follow-up in one week with virtual visit to review pulse, blood pressure, and weight.Reason for Visit documented in this encounterA[facility]06-19-2025 NoteA[facility]06-19-2025 History of Present illness Narrative* Meena Guerra MD - 05/09/2025 12:12 PM EDT Reason for Visit HPI Kaitlin Jackson is a 84-year-old female with a complex medical history, presenting for follow-up after multiple recent hospitalizations. here with daughter and KARAN wolfe. Kaitlin has had multiple hospitalizations recently, with the most recent discharge occurring 3 days ago. She was initially admitted on 04/16 for dyspnea and was found to have a pleural effusion. During this admission, she was treated with Lasix, but treatment was halted due to elevated creatinine levels, leading to discussions about potential dialysis. She also has a history of A-fib and heart failure, and was in a sensitive situation with fluid over load and kidneys being sensitive to the diuresis. her creatinine had gone up to 4, but now is back at 1.2 which is baseline for her. . She was discharged on 04/27, but was readmitted the same day due to significant dyspnea and explosive bloody diarrhea. She reports that her blood pressure dropped significantly, prompting a call to emergency services. During this second admission, she underwent a colonoscopy and was found to have a duodenal ulcer,which was cauterized twice. She received a blood transfusion and fluids during this time. she was in the ER yesterday for carlson and not feeling well at all. her bp was found to be at [id number] or 90. she was taken off the cardizem 250, lisinopril 40, metoprolol and metolozone 5 mgs and she is here to see me today. She reports feeling much much better today as her bp is much better after stopping all med Notes feeling cold all the time, now that she is anemic and also has noted a tremor She has been receiving home health care twice a week. She reports developing large blisters on her legs, which were wrapped by the visiting nurse. She also reports feeling cold and shaky, with worsening symptoms over the past 3 weeks. She has been sleeping in a chair due to respiratory issues and has not been elevating her legs. She was seen by a mangle operator garments yesterday due to low blood pressure, which was recorded at 87/44. She was sent to the emergency department, where her blood pressure stabilized, and she was discharged.Several of her medications were put on hold due to low blood pressure, including lisinopril, diltiazem, metoprolol, and metolazone. She is currently taking levothyroxine, gabapentin, pentoxifylline, simvastatin, Vasculera, cetirizine, Eliquis, Ozempic, guaifenesin, Protonix, and sucralfate. She reports feeling better today after stopping some of her medications. Kaitlin has a history of venous insufficiency and has been wearing support hose, but has not been using them recently due to concerns about fluid retention. She also has a history of diabetes and is taking Ozempic. She denies taking NSAIDs such as Motrin, Aleve, or ibuprofen. She has a cardiology follow-up scheduled in several months. Social History Tobacco Use Smoking status: Never Smokeless tobacco: Never Vaping Use Vaping status: Never Used Substance Use Topics Alcohol use: Yes Comment: Occasional Wine Drug use: Never Past medical history, appointments, medications, allergies reviewed. Pertinent Lab/Diagnostic Studies are reviewed and discussed today Current Outpatient Medications: pantoprazole DR (PROTONIX) 40 mg tablet sucralfate (CARAFATE) 1 gram tablet amiodarone (PACERONE) 200 mg tablet azithromycin (ZITHROMAX) 250 mg tablet OXYGEN, HOME THERAPY, simvastatin (ZOCOR) 20 mg tablet gabapentin (NEURONTIN) 300 mg capsule levothyroxine (SYNTHROID) 100 mcg tablet semaglutide (OZEMPIC) 0.25 mg or 0.5 mg (2 mg/3 mL) pen metFORMIN ER (GLUCOPHAGE XR) 500 mg 24 hr tablet Cetirizine 10 mg cap ALIGN PROBIOTIC RESISTANCE CAPSULE pentoxifylline ER (TRENTAL) 400 mg CR tablet diosmin complex no.1 (VASCULERA) 630 mg tab mupirocin (BACTROBAN) 2 % ointment blood sugar diagnostic (ONE TOUCH VERIO) test strip Lancets (ONE TOUCH DELICA) lancets acetaminophen (TYLENOL) 500 mg tablet multivitamins(DAILY MULTIVITAMIN TAB) metOLazone (ZAROXOLYN) 5 mg tablet lisinopril (ZESTRIL) 40 mg tablet metoprolol tartrate, short acting, (LOPRESSOR) 50 mg tablet dilTIAZem CD (CARDIZEM CD) 240 mg 24 hr capsule apixaban (ELIQUIS) 5 mg tab(s) furosemide (LASIX) 40 mg tablet azelastine-fluticasone (DYMISTA) 137-50 mcg/spray nasal spray amLODIPine (NORVASC) 5 mg tablet BIOTIN ORAL betamethasone dipropionate (DIPROSONE) 0.05 % cream aspirin, enteric coated 81 mg EC tablet Health Maintenance Shingrix Vaccine(2 of 3) DTaP,Tdap,Td Vaccine(2 - Td or Tdap) Covid-19 Vaccine( season) Advance Directive Discussion Medicare Advantage Annual Wellness Visit Depression Screening Anxiety Screening@ Review Of Systems Constitutional: (+) feeling cold, (+) shaking/chills Ears/Nose/Mouth/Throat: (+) hearing difficulty Respiratory: (+) orthopnea Skin: (+) bilateral leg blisters, (+) leg edema, (+) leg wound drainage Physical Exam BP 110/65 Pulse (!) 132 Resp 18 Wt 90.3 kg (199 lb) SpO2 96% BMI 37.60 kg/m GENERAL: NAD, alert and oriented in a wheelchair SKIN: Unremarkable, no rash or skin lesions. HEAD: Normocephalic. EYES: PERRLA, EOMI, conjunctiva clear. LUNGS: Clear to auscultation bilaterally, no wheezes/rhonchi/rales. HEART: Regular rate and rhythm, no murmurs. No ectopy. EXTREMITIES: Normal, no deformities, no skin discoloration, no edema. Bandaged legs which are edematous, at NEURO: Awake, alert and oriented x3, cranial nerves II-XII grossly intact, normal gait, no involuntary motions. Labs: (Yesterday) - Hemoglobin: 8 g/dL Autoimmune panel: Negative Tests: (04/27) EGD: Oozing duodenal ulcers with a visible vessel treated with heater probe; repeated cauterization with topical hemostatic spray and injection. Stent not placed due to thin tissues. Imaging: (Yesterday) - Chest X-ray: Possible pneumonia; patient started on azithromycin (04/16) Echocardiogram: - Left ventricle and left atrium severely enlarged - Ejection Fraction: 55-60% - Moderate to severe mitral annular calcification - Moderate diffuse aortic valve calcification Assessment and Plan 1. Recurrent pleural effusion (J90) Multiple hospital admissions for pleural effusion and shortness of breath. Fluid overload due to heart failure and renal insufficiency. - Elevate legs to reduce edema; recommended purchasing a recliner and footrest to facilitate elevation. - Ordered pulmonary consult at [facility]. 2. Persistent atrial fibrillation (HCC) (I48.19) Atrial fibrillation with RVR (HCC) (I48.91) Contributing to heart failure and fluid retention. Recent episodes of rapid ventricular response with heart rate recorded at 132 bpm. - Resume Metoprolol 25 mg BID if systolic BP is above 110 mmHg. - Ordered cardiology consult at [facility] for further evaluation and management,including potential ablation. 3. Acute diastolic congestive heart failure (HCC) (I50.31) Acute diastolic CHF (congestive heart failure) (HCC) (I50.31) Contributing to fluid overload and recurrent pleural effusions. Recent echocardiogram shows moderate to severe mitral annular calcification and biatrial enlargement. - Resume Ozempic. - Ordered cardiology consult at [facility] for comprehensive management. 4. 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 Patient was on Apixaban, which may have exacerbated bleeding. - Continue Protonix 40 mg and Sucralfate as prescribed. - Hold Apixaban until further evaluation by cardiology. 5. Anemia, unspecified type (D64.9) Hemoglobin level at 8 g/dL. Likely contributing to patient's feeling of cold and shaking. - Ordered iron therapy. - Ordered Vitamin B12 level to assess for deficiency. 6. Stage 3a chronic kidney disease (HCC) (N18.31) Renal function compromised, contributing to fluid retention and complicating diuretic therapy. - Monitor renal function closely. - Ordered nephrology consult at [facility]. 7. 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 - Ordered cardiology consult at [facility] for further evaluation and management. 8. 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 - Ordered cardiology consult at [facility] for comprehensive management. 9. Vitamin B12 deficiency (E53.8) - Ordered Vitamin B12 level to assess for deficiency. Voice recognition software was used to compose this office note. Please excuse any unintended typographical errors. Recording using [employer] software for draft documentation of the visit was discussed with the patient/authorized operations support representative; all questions welcomed and answered. Patient/authorized operations support representative agreed to proceed Meena Guerra MD documented in this encounterA[facility] Instructions* Patient Instructions* Meena Guerra MD - 05/09/2025 10:35 AM EDT We discussed your recent health concerns and hospitalizations: - Heart Failure and Atrial Fibrillation (AFib): - Your heart failure with diastolic dysfunction and AFib are contributing to fluid retention and other symptoms. - Start taking Metoprolol 25 mg twice daily. This will help control your heart rate, which is currently elevated at 132 beats per minute. Please split your current 50 mg tablets in half to achieve the correct dose. - Do not resume any other medications that were placed on hold, including diuretics, until further notice. - Monitor your blood pressure. If your systolic blood pressure (top number) rises above 110, continue taking Metoprolol as prescribed. - Iron Deficiency and Anemia: - Your hemoglobin is low at 8 (normal for women is 12), which may be contributing to your feeling cold and shaky. - We will arrange for iron therapy to help improve your levels. Additionally, please get a blood test to check your vitamin B12 levels, as this is important for building healthy blood. - Leg Swelling and Blisters: - Elevate your legs as much as possible to reduce swelling. Consider purchasing a recliner with a footrest or ottoman to help keep your legs elevated higher than your heart. - Use compression stockings or leg squeezers cautiously, as they may help with swelling but could potentially worsen fluid retention in your abdomen or lungs. Monitor for any changes and let us know if you have concerns. - Gastrointestinal Bleeding and Ulcers: - Your recent GI bleed was caused by oozing duodenal ulcers, which were treated with cauterization and medication. Continue taking Protonix 40 mg and Sucralfate (Carafate) as prescribed to protect your stomach lining and prevent further bleeding. - Avoid NSAIDs (e.g., ibuprofen, Motrin, Aleve) as they can worsen ulcers. - Specialist Referrals: - A cardiology referral has been placed for [facility] to address your heart failure, AFib, and overall cardiac health. They will evaluate whether you are a candidate for additional treatments, such as ablation or other interventions. - A pulmonology referral has also been placed to evaluate your pleural effusions (fluid around the lungs) and any related respiratory concerns. - Next Steps: - Attend a virtual follow-up visit with me tomorrow (Tuesday) at 10:40 AM. Please have your blood pressure and weight measured before the visit. - Monitor your symptoms closely. If you experience worsening shortness of breath, chest pain, or other concerning symptoms, go to the emergency room immediately. We will continue to coordinate your care and address the complexity of your health conditions. Please let us know if you have any questions or concerns before your next visit. documented in this encounterA[facility]06-18-[facility]25 Radiology Diagnostic study [facility]06-18-2025 Discharge summary Author Ras Levy [facility] Note Date/Time May 08, 2025 7:[address] [facility] Medical Records Department [address] [place] [address] Emergency Department Summary 05/08/25 MR#: [id number] Acct: [id number] Name: JESS JACKSON Rep #:[id number] : 1940 84 From: Ras Guevara PCP: Dr. Meena Guerra MD Status:REG E R Location: ED HPI History of Present Illness Chief Complaint: Hypotension Informant: patient and family Onset/Context/Timing Onset: Days Context: Gradual Onset Timing: Continuous Quality: Shaking chills Location: Generalized Worsened by: Exertion Relieved by: Rest Narrative Narrative: Patient presents with low blood pressure that became worse today. Patient states her blood pressure was 87/44 and she was referred to the emergency department. Patient was admitted to the hospital recently and was discharged on05/03/2025. While in the hospital, patient was noted to have a bleeding ulcer inher duodenum which was cauterized by Dr. Still. Patient also had 2 ultrasound-guided thoracentesis while in the hospital. Patient states she has been having increasing lower extremity swelling and drainage. Patient also admits to some shaking chills. Patient states her breathing is worse with any exertion. [facility] Medical History Chronic anticoagulation Diabetes Kidney disease Non-smoker Venous (peripheral) insufficiency Atrial fibrillation CHF (congestive heart failure) Venous stasis ulcer Hyperpigmentation of skin Lipodermatosclerosis of both lower extremities Right leg swelling Left leg swelling Varicose veins of lower extremity with inflammation, 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 Chronic venous insufficiency Generalized osteoarthrosis History of right breast cancer Cardiomegaly Home Medications ?Medication ?Instructions ?Recorded ?Last Taken ?Type gabapentin 300 mg capsule 300 mg PO QHS Neuropathy 09/0604/15/25 History (Neurontin) levothyroxine 100 mcg tablet 100 mcg PO DAILY thyroid 09/30/17 04/16/25 History lisinopril 40 mg tablet 40 mg PO DAILY blood pressur e 09/30/17 04/15/25 History Held on 05/08/25. Instructions: Hold until your blood pressure is better pentoxifylline 400 mg 1 tab PO TID circulation 09/0604/16/25 History tablet,extended release Held on 05/03/25. Instructions: Resume on 05/07/25. acetaminophen 500 mg tablet 1,000 mg PO QHS PRN pain 0 01/08/25 Unknown History (Acetaminophen Extra Strength) cetirizine 10 mg tablet (24Hour 10 mg PO DAILY PRN all ergy symptoms 01/08/25 Unknown History Allergy) diosmin complex no.1 630 mg tablet 1 tab PO DAILY 12/2204/15/25 History (Vasculera) vjaujtaddgfo-raxktzqd-zazvkf 1 tab PO DAILY vitamin 04/16/25 History tablet (A Thru Z High Potency tablet) simvastatin 20 mg tablet 20 mg PO QHS cholesterol 04/15/25 History apixaban 5 mg tablet (Eliquis) 5 mg PO BID blood thinn er 90 days 01/23/25 04/16/25 Rx Held on 05/03/25. #180 tabs Instructions: Resume on 05/07/25. diltiazem HCl 240 mg 240 mg PO DAILY heart rate 3 01/23/25 04/16/25 Rx capsule,extended release 24 hr months #90 caps (Cardizem CD) Held on 05/08/25. Instructions: Hold until you are blood pressure is better metoprolol tartrate 50 mg tablet 50 mg PO BID blood pr essure 90 01/23/25 04/16/25 Rx Held on 05/08/25. days #180 tabs Instructions: Hold until your blood pressure is better biotin 5,000 mcg sublingual tablet 5,000 mcg sublingua l DAILY 04/16/25 04/15/25 History supplement semaglutide 0.25 mg or 0.5 mg (2 0.5 mg subcut QWEEK d iabetes 04/16/25 Unknown History mg/1.5 mL) subcutaneous pen injector (Ozempic) amiodarone 200 mg tablet 200 mg PO BID #60 tabs 04/26 Unknown Rx guaifenesin 600 mg tablet, 600 mg PO BID #20 tabs 05/15 Unknown Rx extended release 12 hr (Mucinex) metolazone 5 mg tablet 5 mg PO DAILY #30 tabs 04/26 Unknown Rx Held on 05/08/25. Instructions: Hold until your blood pressure is better pantoprazole 40 mg tablet,delayed 40 mg PO BID #60 tab s 05/03/25 Unknown Rx release (Protonix) sucralfate 1 gram tablet 1 g PO TIDAC #90 tabs Unknown Rx Allergy/AdvReac Type Severity Reaction Status Date / Time enoxaparin (From Lovenox) Allergy Unknown Verified 05/08/25 11:03 oxycodone Allergy Unknown Verified 05/08/25 11:03 Penicillins (PCN) Allergy Unknown Verified 05/08/25 11:03 Family History Father Heart disease Hypertension Heart failure Mother Kidney disease Heart disease Cancer Surgical History History of lumpectomy of right breast History of lumbar laminectomy History of total replacement of both hip joints History of total bilateral knee replacement (TKR) Social History household members: spouse Smoking Status: Never smoker alcohol intake: never substance use type: does not use ROS ROS ED Constitutional Constitutional ED: Denies chills or fever(s) Eyes Eyes: Denies blurry vision or change in vision ENT ENT ED: Denies rhinorrhea or sore throat Cardiovascular Cardiovascular: Denies chest pain or palpitations Respiratory/Chest Respiratory/Chest: Denies cough or dyspnea Gastrointestinal Gastrointestinal: Denies nausea or vomiting Genitourinary Genitourinary ED: Denies dysuria or hematuria Musculoskeletal Musculoskeletal: Denies back pain or neck pain Integumentary Reports rash; Denies abscess Neurologic Neurologic: Denies headache(s) or weakness Allergic/Immunologic Allergic/Immunologic ED: Denies mouth swelling or urticaria EXAM Physical Exam Const Vital Signs: 05/08/25 12:59 05/08/25 12:59 05/08/25 13:01 Temperature 98.3 F Temperature Source Temporal Pulse Rate 103 H 111 H Pulse Rate [Lying] Pulse Rate [Sitting (for 1 minute prior to obtaining)] Pulse Rate [Standing (for 1 minute prior to obtaining)] Respiratory Rate 14 17 Respiratory Effort Normal Non-Labored Blood Pressure 84/45 L 108/82 H Blood Pressure [Lying] Blood Pressure [Sitting (for 1 minute prior to obtaining)] Blood Pressure [Standing (for 1 minute prior to obtaining)] Blood Pressure Mean 58 90 Blood Pressure Mean [Lying] Blood Pressure Mean [Sitting (for 1 minute prior to obtaining)] Blood Pressure Mean [Standing (for 1 minute prior to obtaining)] Pulse Ox 95 100 Oxygen Delivery Method Nasal Cannula Oxygen Flow Rate (L/min) 2 05/08/25 13:59 05/08/25 15:00 05/08/25 16:00 Temperature Temperature Source Pulse Rate 90 115 H Pulse Rate [Lying] Pulse Rate [Sitting (for 1 minute prior to obtaining)] Pulse Rate [Standing (for 1 minute prior to obtaining)] Respiratory Rate 13 19 H Respiratory Effort Blood Pressure 127/88 H 130/98 H 128/84 H Blood Pressure [Lying] Blood Pressure [Sitting (for 1 minute prior to obtaining)] Blood Pressure [Standing (for 1 minute prior to obtaining)] Blood Pressure Mean 101 108 98 Blood Pressure Mean [Lying] Blood Pressure Mean [Sitting (for 1 minute prior to obtaining)] Blood Pressure Mean [Standing (for 1 minute prior to obtaining)] Pulse Ox 100 100 Oxygen Delivery Method Oxygen Flow Rate (L/min) 05/08/25 16:30 05/08/25 17:00 05/08/25 18:00 Temperature Temperature Source Pulse Rate 104 H 65 Pulse Rate [Lying] 132 H Pulse Rate [Sitting (for 1 minute prior to obtaining)] 120 H Pulse Rate [Standing (for 1 minute prior to obtaining)] 141 H Respiratory Rate 14 16 Respiratory Effort Blood Pressure 125/88 H 103/63 Blood Pressure [Lying] 131/83 H Blood Pressure [Sitting (for 1 minute prior to obtaining)] 128/84 H Blood Pressure [Standing (for 1 minute prior to obtaining)] 128/80 H Blood Pressure Mean 100 76 Blood Pressure Mean [Lying] 99 Blood Pressure Mean [Sitting (for 1 minute prior to obtaining)] 98 Blood Pressure Mean [Standing (for 1 minute prior to obtaining)] 96 Pulse Ox 100 99 Oxygen Delivery Method Nasal Cannula Oxygen Flow Rate (L/min) 2 Positive well nourished and well developed General Appearance ED: well developed and NAD HEENT Reports moist mucous membranes Neck supple and no JVD Resp normal respiratory effort Auscultation: diminished lung sounds diffuse Cardio Rate: tachycardic Rhythm: abnormal rhythm irregularly irregular GI non-tender and non-distended Palpation: soft Extremity Extremity Narrative: There is tenderness and edema of the lower extremities bilaterally. There is mild erythema. There is no warmth noted. There is no calf tenderness. Neuro oriented x3, CN's II-XII intact bilaterally and no sensory deficits noted Sensorium / Orientation: alert Motor Exam: strength 5/5 throughout Psych mental status grossly normal MDM MDM MDM Narrative Medical decision making narrative: Differential diagnosis includes anemia, dehydration, electrolyte abnormality, urinary tract infection, sepsis, pneumonia, bronchitis, congestive heart failure, and pleural effusion. EKG will be obtained to assess for cardiac dysrhythmia and cardiac ischemia. Chest x-ray will be obtained to assess for pneumonia or bronchitis. CBC will be obtained to assess for leukocytosis and anemia. Comprehensive metabolic profile will be obtained to assess for hepatic function, renal function, and electrolyte abnormality. Serum lactate will be obtained to assess for sepsis. PT with INR PTT will be obtained to assess for coagulopathy. BNP will be obtained to assess for congestive heart failure. Urinalysis will be obtained to assess for urinary tract infection and hematuria. Blood cultures will be obtained to assess for sepsis. Urine culture will be obtained to assess for urinary tract infection. History & Record Review Additional record(s) reviewed:: Prior inpatient record, Prior ED visit and Priorlabs Lab Data Attestation: I reviewed the patient's lab results. Lab results narrative: CBC was reviewed. There is an anemia with a hemoglobin was 8.0 and hematocrit was 25.9. This was improved compared to previous results. Comprehensive metabolic profile was reviewed. Creatinine was slightly elevated at 1.30. Thisis consistent with previous results. proBNP was reviewed and was elevated at 3384. This was improved from previous result. Urinalysis was reviewed. There is no evidence of urinary tract infection or hematuria. PT with INR and PTT were reviewed. Pro time was 21.5 and INR is 1.8. PTT was 33.6. Labs: Laboratory Results - last 24 hr 05/08/25 05/08/25 14:48 16:28 WBC 7.5 RBC 2.70 L Hgb 8.0 L Hct 25.9 L MCV 95.9 MCH 29.6 MCHC 30.9 L RDW Std Deviation 57.2 H RDW Coeff of Marcial 17.0 H Plt Count 273 MPV 10.3 Immature Gran % (Auto) 0.400 Neut % (Auto) 79.7 H Lymph % (Auto) 10.9 L [place] % (Auto) 6.9 Eos % (Auto) 1.3 Baso % (Auto) 0.8 Absolute Neuts (auto) 6.0 Absolute Lymphs (auto) 0.82 L Nucleated RBC % 0 PT 21.5 H INR 1.8 APTT 33.6 Sodium 139 Potassium 4.4 Chloride 101 Carbon Dioxide 29.5 Anion Gap 9 BUN 17 Creatinine 1.30 H Est GFR (MDRD) Non-Af 40 L BUN/Creatinine Ratio 12.8 Glucose 110 H Lactic Acid 1.4 Calcium 9.0 Total Bilirubin 0.29 AST 24 ALT 12 Alkaline Phosphatase 76 NT pro BNP II 3384 H Total Protein 6.2 Albumin 3.2 L Globulin 3.1 Albumin/Globulin Ratio 1.0 Urine Color Straw Urine Clarity Clear Urine pH 6.0 Ur Specific Lawtey 1.010 Urine Protein 30 H Urine Glucose (UA) Normal Urine Ketones Negative Urine Occult Blood Negative Urine Nitrite Negative Urine Bilirubin Negative Urine Urobilinogen Normal Ur Leukocyte Esterase 25 H Urine RBC 0-5 SEEN Urine WBC 0-5 SEEN Ur Squamous Epith Cells 0-5 SEEN Ur Transition Epith Cell 0-5 SEEN Urine Bacteria 0 SEEN Urine Mucus 0 SEEN Radiography Chest X-Ray - ED: 2 View, Read by ED Physician, Read by Radiologist and Right Effusion Diagnostic Testing: Clinical Impression(s) from Imaging Studies Chest X-Ray 05/08/25 14:50 IMPRESSION: Right pleural effusion. Atelectasis and/or consolidation in the right lung base Reading Location: [facility] PA and lateral chest x-ray was obtained. There are 2 views. On my independent interpretation, lung triplett showed a right pleural effusion and atelectasis versus infiltrate in the right lung base. There is normal cardiac silhouette. Bony thorax is normal. Radiologist also interpreted the x-ray and agrees. EKG Initial EKG: Attestation: I personally reviewed and interpreted this EKG as follows: Interpretation: Atrial Fibrillation (111) and RBBB Comments: EKG was obtained. On my independent interpretation, it showed atrial fibrillation with a rate of 111. QRS interval is slightly prolonged at 158 ms. QTc interval was 522 ms. There is left axis deviation at -34. There is a right bundle branch block pattern noted. There are no acute ST or T wave changes noted. Prior EKG tracings: available for review Prior: Unchanged (04/27/2025) Treatment and Re-Evaluation :: Patient was having chills with a normal temperature. Patient was advised of herfindings. Patient's blood pressure improved without any treatment. Patient andfamily were apprised of the findings. Patient was advised that her chills couldbe from possible infiltrate in the right base. Patient was given a dose of Zithromax here. Patient does not appear to be septic at this time. Patient wasambulated with a pulse oximeter. If the patient is able to ambulate with a walker and he is steady on her feet, I feel the patient can be discharged home with oral antibiotics. Patient and family understand and are agreeable with theplan. All questions were answered. Discharge Plan Triage Chief Complaint: Hypotension ED Provider: Ras Levy Dx/Rx/DC Orders Clinical Impression: Pleural effusion on right, CHF (congestive heart failure), PAD (peripheral artery disease), Lymphedema, Pneumonia Instructions: ED Peripheral Edema, Bilateral, ED Low Blood Pressure, All Causes Prescriptions: Held diltiazem HCl [Cardizem CD] 240 mg capsule,extended release 24hr 240 mg PO DAILY 90 Days Qty: 90 3RF Hold Instructions: Hold until you are blood pressure is better Rx Instructions: Hold for heart less than 50 or systolic blood pressure less than 100 mmHg. metoprolol tartrate 50 mg tablet 50 mg PO BID 90 Days Qty: 180 3RF Hold Instructions: Hold until your blood pressure is better Rx Instructions: Hold for heart less than 50 or systolic blood pressure less than 100 mmHg. lisinopril 40 MG tablet 40 mg PO DAILY Hold Instructions: Hold until your blood pressure is better metolazone 5 mg Tablet 5 mg PO DAILY Qty: 30 0RF Hold Instructions: Hold until your blood pressure is better No Action Eliquis 5 mg tablet 5 mg PO BID 90 Days Qty: 180 3RF levothyroxine 100 MCG tablet 100 mcg PO DAILY gabapentin [Neurontin] 300 MG capsule 300 mg PO QHS pentoxifylline 400 MG tablet 1 tab PO TID simvastatin 20 mg tablet 20 mg PO QHS Patient Comments: [NO ORIGINAL SIG] Vasculera 630 mg tablet 1 tab PO DAILY A Thru Z High Potency Tablet 1 tab PO DAILY cetirizine [24Hour Allergy] 10 mg tablet 10 mg PO DAILY PRN (Reason: allergy symptoms) acetaminophen [Acetaminophen Extra Strength] 500 mg tablet 1,000 mg PO QHS PRN (Reason: pain) biotin 5,000 mcg tablet, sublingual 5,000 mcg sublingual DAILY Ozempic 0.25 mg or 0.5 mg(2 mg/1.5 mL) pen injector 0.5 mg subcut QWEEK Rx Instructions: for 4 weeks amiodarone 200 mg Tablet 200 mg PO BID Qty: 60 0RF guaifenesin [Mucinex] 600 mg Tablet Extended Release 12hr 600 mg PO BID Qty: 20 0RF pantoprazole [Protonix] 40 mg tablet,delayed release (DR/EC) 40 mg PO BID Qty: 60 0RF sucralfate 1 gram Tablet 1 g PO TIDAC Qty: 90 0RF Primary Care Provider: Meena Guerra Referrals: Kayla Fields MD [Med Staff - Active Staff] - 3-5 Days Meena Guerra MD [Outreach Lab Services] - 3-5 Days Activity Restrictions/Additional Instructions: Hold your metolazone, lisinopril, metoprolol, and diltiazem. Cardiology office is also recommended holding your Eliquis. Print Language: Tajik Disposition Disposition: Home, Self Care What to do if you have Problems For any increased pain, shortness of breath, bleeding, nausea or vomiting, chestpain, or any unexpected problems, contact your Primary Care Provider. Call [facility] ([phone]) or report to the closest Emergency Room. Call 911 if necessary. 05/08/251925 <Electronically signed by Ras Levy DO> Cosigner Signature (if applicable): CC: Dr. Meena Guerra MD ~ Signed [facility] Work Phone: [phone] 901-990406-16-2025 NoteAcmc [facility] System06-16-2025 History of Present illness Narrative* Mckayla Card RN - 05/06/2025 4:32 PM EDT Pt called in because she said she talked with Stacey nurse and she tolf Pt she should make a Cardiology appointment as soon as possible due to her low BP. I let her know that there wasn't a Cardiology consult placed, and PCP saw her BPs from in previous TE and didn't comment on them, but Pt was asymptomatic. Pt did not hold medication according to parameters, as she didn't take BP before taking medication. Pt also wanted to know if we had wheelchairs for when she comes in for her appointmentas she has been weak. I let her know there are wheelchairs at the front doors. Pt was wanting to know if provider was going to put in Cardiology orders. Please call and advise. Mckayla Card RN * Stacey Lopez RN - 05/06/2025 2:17 PM EDT Transition Care Management (TCM) Initial Outreach PCP Update / Actionable Items HRTIC TCM Home Visit Referral Source of Stratification: [facility] Hospital Admission Status: Discharged Readmission Risk Score: OON Patient's zip code: Is zip code within program service area: Patient meets program referral criteria: No Patient does not qualify for High Risk TCM Home Visit program due to: Readmission Risk Score does not meet criteria Disposition: Patient does not qualify for HRTIC, will provide TCM outreach follow-up for 30-days Patient Source: [id number] (OON) Discharge Outreach Summary: Pt is not active. Uses rolator for ambulation. Physical Therapist called into office today to report low BP readings. Pt denies dizziness or lightheadedness, but states she is mostly sitting. Pt states she has parameters to hold Cardizem and Metoprolol if heart rate <50 or SBP <100. Pt took these medications this morning without knowing BP. Recommended to check BP in morning prior to taking medication. Pt verbalized she understood. States she is on a 1L fluid restriction and following. Weighs daily. Wt 206 lbs. Pt feels she has fluid on abd. but is unchanged from hospital. Gave H@H # Pt to call and make Cardiology hosp f/u Pt will call PCP by 3:45pm if does not hear back about BP PCP appt 05/09/25 Recommended if any new or worsening symptoms contact PCP or H@H Patient discharged from [place] Discharge date: 05/03/25 Admitted for: abd pain, fatigue bloody stools Readmission Risk: n/a Value-Based Contract: Mauricio GARCIA Contact: Contact made with patient: Yes Hi, my name is Stacey Lopez RN and I am calling from the [facility] on behalf of your Primary Care Provider, Meena Guerra MD. I understand you were recently in the hospital, so I am calling to check in with you to ensure you are feeling well now that you are home. May I ask you a few questions related to your hospital stay and well-being? Yes Spoke to: Patient Validation: Validated the person spoken to is actively involved in the patient's care. The patient was identified by Name and Date of . Symptoms: Are you feeling about the same, better or worse since leaving the hospital? Same Medications: Do you have any questions about taking your medications, including which medications you should be on, or do you need refills on your medications? No Medication Review: Partial mediation review completed, per patient preference Discharge Instructions: Your Discharge Instructions / After Visit Summary (AVS) are important in guiding you through the recovery process. Do you have any questions related to your discharge instructions? No Home Care: Were you discharged with home care? Yes Has your Home Care Agency contacted you? Yes Name of Home Care Agency: [facility] Phone number, if available: [phone] Start of Home Care services date: 05/04/25 Home care services included: Nursing Physical / Occupational Therapy Equipment: Do you have all the necessary equipment and supplies needed at your home? Yes The patient verbalizes understanding the use of the equipment and supplies Social: Your mental health is as important to us as your physical health. Would you mind answering a few questions on this topic? No, patient declines. Follow-Up Appointment: [Appointment / TCM Follow-up within 14 days] I would like to help you schedule a hospital follow-up virtual or telephone visit with your PCP. This is a great way for you to connect with your provider to ensure you have safely transitioned home.If you are agreeable, I will send your request to a museum service scheduler who will contact and assist you with that appointment. This will give you an opportunity to ask any questions or address any concerns youmay have with your PCP. Inform the patient that if they have any questions or concerns prior to that appointment, to call their PCP's office right away. Appointment Action: No action required; patient already has appointment scheduled. Education details: Patient and family educated on issues/questions related to reason for admission,transition of care topics, and follow-up needed upon discharge. Stacey Lopez RN May 06, 2025 2:17 PM documented in this encounter[facility] Telephone encounter Note * Telephone Encounter - Argentina Sherwood MA - 05/06/2025 4:07 PM EDT Nile notified Argentina Sherwood MA May 06, 2025 4:07 PM [facility]06-16-[facility] Miscellaneous Notes* Telephone Encounter - Argentina Sherwood MA - 05/06/2025 4:07 PM EDT Nile notified Argentina Sherwood MA May 06, 2025 4:07 PM * Telephone Encounter - Meena Guerra MD - 05/06/2025 3:59 PM EDT Noted and agree Regards, Meena Guerra MD * Telephone Encounter - Lauren Andino LPN - 05/06/2025 1:22 PM EDT Sydni with [facility] PT calls in with pt's POC. PT will see pt twice a week x 4 weeks for lower extremity strengthening, gait and balance training. Sydni also reports pt's low bp readings: Sydni reports at beginning of visit: 85/64 HR70 After 30 min or so: 88/62 HR72 After walking to bathroom: 84/50 P92 Sydni reports that pt's O2 is fine. Pt is wearing O2. Sydni reports pt's only complaint is weakness. Lauren Andino LPN * Telephone Encounter - Sarita Doty RN - 05/06/2025 8:17 AM EDT Nile calling from [facility] to report plan of care for patient and shelter will visit patient 2 times a week 2 weeks starting this week and 1 time a week for 2 weeks. Nile had put in a consult to GERONIMO Bashir. Patient and spouse are wanting to do living will and healthcare POAs Patient has a couple drug to drug interactions: - amiodarone and Cardizem - Cardizem and simvastatin Please review and Advise, Sarita Doty RN documented in this encounterA[facility]06-[facility] Telephone encounter Note * Telephone Encounter - Meena Guerra MD - 05/06/2025 3:59 PM EDT Noted and agree Regards, Meena Guerra MD [facility] Tele[facility] encounter Note* Telephone Encounter - Lauren Andino LPN - 05/06/2025 1:22 PM EDT Sydni with [facility] calls in with pt's POC. PT will see pt twice a week x 4 weeks for lower extremity strengthening, gait and balance training. Sydni also reports pt's low bp readings: Sydni reports at beginning of visit: 85/64 HR70 After 30 min or so: 88/62 HR72 After walking to bathroom: 84/50 P92 Sydni reports that pt's O2 is fine. Pt is wearing O2. Sydni reports pt's only complaint is weakness. Lauren Andino LPN [facility]06-16-2025 Telephone encounter Note* Telephone Encounter - Sarita Doty RN - 05/06/2025 8:17 AM EDT Nile calling from [facility] to report plan of care for patient and shelter will visit patient 2 times a week 2 weeks starting this week and 1 time a week for 2 weeks. Nile had put in a consult to GERONIMO Bashir. Patient and spouse are wanting to do living will and healthcare POAs Patient has a couple drug to drug interactions: - amiodarone and Cardizem - Cardizem and simvastatin Please review and Advise, Sarita Doty RN [facility]06-13-[facility] Discharge summary Author Ras Blas [facility] Note Date/Time May 03, 2025 2:[address] [facility] Medical Records Department [address] [place] [address] Discharge Summary 05/03/25 1412 MR#: [id number] Acct: [id number] Name: JESS JACKSON Rep #:[id number] : 1940 84 From: Ras Blas DO PCP: Meena Guerra MD Status:ADM IN Location: [address] Providers Date of Admission: 04/27/25 Primary Care Physician: Meena Guerra MD Consultations 04/27/25 00:03 Consult: Gastroenterology Stat Consulting Provider: [facility] Reason for Consult: GIB EMERGENT Consult: Yes MD Notified: Yes Date Notified: 04/27/25 Time Notified: 00:04 Method of Notification: ED Physician Initiated 04/27/25 06:12 Consult: Mold Blower / Pulmonary Medicine Routine Consulting Provider: Intensivists/Pulmonary Med Reason for Consult: Transient hypotention, GI bleed, ABLA EMERGENT Consult: No MD Notified: Yes Date Notified: 04/27/25 Time Notified: 07:50 Method of Notification: Answering Service Reason For Visit: HYPOTENSION, GI BLEED ON NOAC, PAF WITH RVR Diagnosis Discharge Diagnosis (1) ABLA (acute blood loss anemia): Status: Acute Code(s): D62 - Acute posthemorrhagic anemia Plan: 2/2 GIB complicated by apixaban transfused 3 units PRBCs. Monitor (2) GI (gastrointestinal bleed): Status: Acute Code(s): K92.2 - Gastrointestinal hemorrhage, unspecified Plan: on PPI BID GI consult. Completed prep on 04/27. EGD with oozing duodenal ulcers with a visible vessel. Treated w a heater probe.Colonoscopy with inadequate prep. Diverticulosis in the recto-sigmoid colon. No further plans for repeat endoscopy at this time. Hold apixaban for 96 hours. (3) Atrial fibrillation with RVR: Status: Acute Code(s): I48.91 - Unspecified atrial fibrillation Plan: pAfib w RVR, now improved already on PO amio. Started on Amiodaron gtt, since discontinued. apixaban held given the GIB. Timing of resumption TBD. Continue PO diltiazem and metoprolol with hold parameters. (4) Transient hypotension: Status: Acute Code(s): I95.9 - Hypotension, unspecified Plan: BP transiently down to 58/41 on admission, but has recovered. 2/2 ABLA + antihypertensives. Monitor. Monitor Ongoing. Hold diuretics. (5) (HFpEF) heart failure with preserved ejection fraction: Status: Acute Code(s): I50.30 - Unspecified diastolic (congestive) heart failure Qualifiers: Heart failure chronicity: acute on chronic Qualified Code(s): I50.33 - Acute on chronic diastolic (congestive) heart failure Plan: Increase pulmonary vascular congestion on CXR Pt declined furosemide. Back on metolazone. Plan chronic conditions: * DM2: metformin held. SSI. * hypothyroidism: levothyroxine VTE prophylaxis: SCDs. Medications at Discharge Home Medications gabapentin 300 mg capsule (Neurontin) 300 mg PO QHS Neuropathy 09/30/17 levothyroxine 100 mcg tablet 100 mcg PO DAILY thyroid 09/30/17 lisinopril 40 mg tablet 40 mg PO DAILY blood pressure 09/30/17 pentoxifylline 400 mg tablet,extended release 1 tab PO TID circulation 09/30/17 Held on 05/03/25. Instructions: Resume on 05/07/25. acetaminophen 500 mg tablet (Acetaminophen Extra Strength) 1,000 mg PO QHS PRN pain 01/08/25 cetirizine 10 mg tablet (24Hour Allergy) 10 mg PO DAILY PRN allergy symptoms 01/08/25 diosmin complex no.1 630 mg tablet (Vasculera) 1 tab PO DAILY 01/08/25 zhgyesqfnkvx-kmusrmfk-wcunrj tablet (A Thru Z High Potency tablet) 1 tab PO DAILY vitamin 01/08/25 simvastatin 20 mg tablet 20 mg PO QHS cholesterol 01/08/25 apixaban 5 mg tablet (Eliquis) 5 mg PO BID blood thinner 90 days #180 tabs 01/23/25 Held on 05/03/25. Instructions: Resume on 05/07/25. diltiazem HCl 240 mg capsule,extended release 24 hr (Cardizem CD) 240 mg PO DAILY heart rate 3 months #90 caps 01/23/25 metoprolol tartrate 50 mg tablet 50 mg PO BID blood pressure 90 days #180 tabs 01/23/25 biotin 5,000 mcg sublingual tablet 5,000 mcg sublingual DAILY supplement 04/16/25 semaglutide 0.25 mg or 0.5 mg (2 mg/1.5 mL) subcutaneous pen injector (Ozempic) 0.5 mg subcut QWEEK diabetes 04/16/25 amiodarone 200 mg tablet 200 mg PO BID #60 tabs 04/26/25 guaifenesin 600 mg tablet, extended release 12 hr (Mucinex) 600 mg PO BID #20 tabs 04/26/25 metolazone 5 mg tablet 5 mg PO DAILY #30 tabs 04/26/25 pantoprazole 40 mg tablet,delayed release (Protonix) 40 mg PO BID #60 tabs 05/03/25 sucralfate 1 gram tablet 1 g PO TIDAC #90 tabs 05/03/25 Hospital Course Operations None Procedures EGD Summary of Care Provided Minutes Spent on Discharge: 32 Hospital Course: This is an 84-year-old female presents with abdominal cramping, fatigue malaise and bloody stools. Patient was actually just discharged on the 6 when come backto the emergency room later on that day with these complaints. Was not have anybleeding while she was in the hospital. Patient did have a GI bleed and had duodenal ulcers that were cauterized by Dr. Still. This is all, also complicated by her use of apixaban for atrial fibrillation. Patient's hemoglobin did drop into though she did require total of 3 units while she was here but since has remained stable. Patient did develop some heart failure and was put back on her metolazone. Patient declined any furosemide. Overall patient is doing well and will be going home with home care. Weight / BMI Weight Weight: 96.5 kg Body Mass Index (BMI) 40.1 ABG / Lab / Microbiology Data 05/03/25 06:28 05/03/25 06:28 Laboratory: Laboratory Results - last 24 hr 05/02/25 16:21: POC Glucose 114 H 05/02/25 21:52: POC Glucose 116 H 05/03/25 06:28: WBC 9.0, RBC 2.55 L, Hgb 7.5 L, Hct 24.3 L, MCV 95.3, MCH 29.4, MCHC 30.9 L, RDW Std Deviation 53.6 H, RDW Coeff of Marcial 16.0 H, Plt Count 287, MPV 9.8, Immature Gran % (Auto) 0.600, Neut % (Auto) 78.4 H, Lymph % (Auto) 10.7L, Berks % (Auto) 6.8, Eos % (Auto) 2.6, Baso % (Auto) 0.9, Absolute Neuts (auto)7.1, Absolute Lymphs (auto) 0.96, Nucleated RBC % 0, Sodium 138, Potassium 4.4, Chloride 104, Carbon Dioxide 27.3, Anion Gap 7, BUN 20 H, Creatinine 1.22 H, Estim Creat Clear Calc 35.81 L, Est GFR (MDRD) Non-Af 43 L, BUN/Creatinine Ratio 16.2, Glucose 97, Calcium 8.6 05/03/25 06:35: POC Glucose 99 05/03/25 11:28: POC Glucose 161 H Microbiology: Microbiology 04/27/25 06:38 Wound - Leg, Right Skin and Soft Tissue MRSA/MSSA (PCR - Final 04/26/25 21:08 Stool Stool Occult Blood (ANDREA) - Final Occult Blood Positive D/C Instructions Discharge Diet: Low fat / Low cholesterol DC O2, CPAP, BIPAP Needs Home O2 Discharge instructions: Yes Type of respiratory needs?: Oxygen Oxygen frequency: At rest DC home with Oxygen: Yes Home O2 MD Review: I have reviewed the oxygen testing, and the patient qualifies for home oxygen equipment and portability. The patient is mobile in the home and the community. Meaningful Use Info Meaningful Use Meaningful Use Diagnoses (Choose all that apply): None applicable Ischemic Stroke Statin Dosing Therapy Reference: STATIN DOSE THERAPY REFERENCE: * Patients > 75 years receive moderate or high dose statin therapy. * Patients 75 years or YOUNGER should receive HIGH intensity statin dose unless contraindicated. You will be required to document reason for non-treatment if statin daily dose does not meet guidelines. HIGH DOSE STATIN THERAPY DAILY Atorvastatin > than or = to 40 mg Rosuvastatin > than or = to 20 mg Amlodipine + Atorvastatin > than or = to 2.5/40 mg Ezetimibe + Simvastatin 10/80 mg Simvastatin 80mg Discharge Plan Admission Admit Date/Time: 04/27/25 01:57 Primary Reason for Your Visit: Anemia Attending Provider: Ras Blas Primary Care Provider: Meena Guerra Consulting Providers: Dayana Abel Discharge Orders/Prescriptions Prescriptions: New pantoprazole [Protonix] 40 mg tablet,delayed release (DR/EC) 40 mg PO BID Qty: 60 0RF sucralfate 1 gram Tablet 1 g PO TIDAC Qty: 90 0RF Continued diltiazem HCl [Cardizem CD] 240 mg capsule,extended release 24hr 240 mg PO DAILY 90 Days Qty: 90 3RF Rx Instructions: Hold for heart less than 50 or systolic blood pressure less than 100 mmHg. metoprolol tartrate 50 mg tablet 50 mg PO BID 90 Days Qty: 180 3RF Rx Instructions: Hold for heart less than 50 or systolic blood pressure less than 100 mmHg. levothyroxine 100 MCG tablet 100 mcg PO DAILY gabapentin [Neurontin] 300 MG capsule 300 mg PO QHS lisinopril 40 MG tablet 40 mg PO DAILY simvastatin 20 mg tablet 20 mg PO QHS Patient Comments: [NO ORIGINAL SIG] Vasculera 630 mg tablet 1 tab PO DAILY A Thru Z High Potency Tablet 1 tab PO DAILY cetirizine [24Hour Allergy] 10 mg tablet 10 mg PO DAILY PRN (Reason: allergy symptoms) acetaminophen [Acetaminophen Extra Strength] 500 mg tablet 1,000 mg PO QHS PRN (Reason: pain) biotin 5,000 mcg tablet, sublingual 5,000 mcg sublingual DAILY Ozempic 0.25 mg or 0.5 mg(2 mg/1.5 mL) pen injector 0.5 mg subcut QWEEK Rx Instructions: for 4 weeks amiodarone 200 mg Tablet 200 mg PO BID Qty: 60 0RF metolazone 5 mg Tablet 5 mg PO DAILY Qty: 30 0RF guaifenesin [Mucinex] 600 mg Tablet Extended Release 12hr 600 mg PO BID Qty: 20 0RF Held Eliquis 5 mg tablet 5 mg PO BID 90 Days Qty: 180 3RF Hold Instructions: Resume on 05/07/25. pentoxifylline 400 MG tablet 1 tab PO TID Hold Instructions: Resume on 05/07/25. Discontinued metformin 500 MG tablet,ER mynor.retention 24 hr 500 mg PO BID Referrals / Follow Up: Ras Childress [Pharmacist] - Meena Guerra MD [Primary Care Provider] - Within 2 Weeks FriendJayden DO [Med Staff - Active Staff] - Within 3 Months Disposition Disposition (needs filled in before D/C Order can be placed): Home, Self Care Charges/Coding Visit Charges Inpatient E&M: 08016 Disch Hosp >30min 05/03/25 1420 <Electronically signed by Ras Blas DO> Cosigner Signature (if applicable): CC: Meena Guerra MD; Dr. Ras Blas DO~ Signed [facility] Work Phone: 1(313) 689-702506-13-2025 [facility]06-13-2025 Progress note Author Ras Blas [facility] Note Date/Time May 03, 2025 11:[address] [facility] Medical Records Department [address] [place] [address] Progress Note - Hospitalist 05/03/25 0700 MR#: [id number] Acct: [id number] Name: JESS JACKSON Rep #:[id number] : 1940 84 From: Ras Blas DO PCP: Meena Guerra MD Status:ADM IN Location: [place] [address] Reason for Visit Reason for Visit: Diagnoses Acute posthemorrhagic anemia (04/27/25) Unspecified atrial fibrillation (04/27/25) Acute on chronic diastolic (congestive) heart failure (04/27/25) Hypotension, unspecified (04/27/25) Pleural effusion, not elsewhere classified (04/27/25) Gastrointestinal hemorrhage, unspecified (04/27/25) long-term (current) use of anticoagulants (04/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 No new issues. Objective Data Objective Data Vital Signs: Vital Signs Temp Pulse Resp BP Pulse Ox O2 Del Method O2 Flow Rate 36.3 C L 86 16 102/76 97 Nasal Cannula 2 05/03/25 03:45 05/03/25 03:45 05/03/25 03:45 05/03/25 03:45 05/03/25 03:45 05/03/25 03:46 05/03/25 03:46 FiO2 97 05/01/25 15:48 Oxygen Flow Rate (L/min) 2 Oxygen Delivery Method Nasal Cannula Weight: 96.5 kg Body Mass Index (BMI) 40.1 Intake & Output: Intake and Output for Last 24 Hours 05/01/25 05/02/25 05/03/25 23:59 23:59 23:59 Intake Total 560 / 560 662.75 / 662.75 0 / 0 Output Total 0 / 0 Balance 560 / 560 662.75 / 662.75 0 / 0 Lab / Micro Data 05/03/25 06:28 05/03/25 06:28 Labs: Laboratory Results - last 24 hr 05/02/25 06:55: POC Glucose 96 05/02/25 11:02: POC Glucose 94 05/02/25 16:21: POC Glucose 114 H 05/02/25 21:52: POC Glucose 116 H 05/03/25 06:28: WBC 9.0, RBC 2.55 L, Hgb 7.5 L, Hct 24.3 L, MCV 95.3, MCH 29.4, MCHC 30.9 L, RDW Std Deviation 53.6 H, RDW Coeff of Marcial 16.0 H, Plt Count 287, MPV 9.8, Immature Gran % (Auto) 0.600, Neut % (Auto) 78.4 H, Lymph % (Auto) 10.7L, Berks % (Auto) 6.8, Eos % (Auto) 2.6, Baso % (Auto) 0.9, Absolute Neuts (auto)7.1, Absolute Lymphs (auto) 0.96, Nucleated RBC % 0 Micro: Microbiology 04/27/25 06:38 Wound - Leg, Right Skin and Soft Tissue MRSA/MSSA (PCR - Final 04/26/25 21:08 Stool Stool Occult Blood (ANDREA) - Final Occult Blood Positive Physical Exam Const alert and no apparent distress HEENT head/scalp atraumatic and moist oral mucous membranes Resp normal respiratory effort, no retractions, no use of accessory muscles and clearto auscultation bilaterally Cardio regular rate, regular rhythm and S1 normal heart sound GI normal to inspection, nondistended, normoactive bowel sounds, soft to palpation and non-tender Extremity normal to inspection and full ROM Assessment & Plan Assessment/Plan (1) ABLA (acute blood loss anemia): PLAN: 2/2 GIB complicated by apixaban transfused 3 units PRBCs. Monitor (2) GI (gastrointestinal bleed): PLAN: on PPI BID GI consult. Completed prep on 04/27. EGD with oozing duodenal ulcers with a visible vessel. Treated w a heater probe.Colonoscopy with inadequate prep. Diverticulosis in the recto-sigmoid colon. No further plans for repeat endoscopy at this time. Hold apixaban for 96 hours. (3) Atrial fibrillation with RVR: PLAN: pAfib w RVR, now improved already on PO amio. Started on Amiodaron gtt, since discontinued. apixaban held given the GIB. Timing of resumption TBD. Continue PO diltiazem and metoprolol with hold parameters. (4) Transient hypotension: PLAN: BP transiently down to 58/41 on admission, but has recovered. 2/2 ABLA + antihypertensives. Monitor. Monitor Ongoing. Hold diuretics. (5) (HFpEF) heart failure with preserved ejection fraction: QUALIFIERS: Heart failure chronicity: acute on chronic Qualified Code(s): I50.33 - Acute on chronic diastolic (congestive) heart failure PLAN: Increase pulmonary vascular congestion on CXR Pt declined furosemide. Back on metolazone. PLAN: Plan chronic conditions: * DM2: metformin held. SSI. * hypothyroidism: levothyroxine VTE prophylaxis: SCDs. Charges/Coding Visit Charges Inpatient E&M: 49278 Subs Hosp L2 05/03/25 1116 <Electronically signed by Ras Blas DO> Cosigner Signature (if applicable): CC: ~ Signed [facility] Work Phone: 1(554) 613-223906-12-2025 Progress note Author Jayden Friend [facility] Note Date/Time May 02, 2025 7:[address] [facility] Medical Records Department [address] [place] [address] Progress Note 05/02/25 1950 MR#: [id number] Acct: [id number] Name: JESS JACKSON Rep #:[id number] : 1940 84 From: Jayden Still DO PCP: Meena Guerra MD Status:ADM IN Location: [place] [address] Progress Note Patient has been tolerating a diet today without any problems. She is status post EGD x 2 with control of bleed. Physical Exam Const alert and no apparent distress HEENT head/scalp atraumatic Resp normal respiratory effort, no retractions, no use of accessory muscles and clearto auscultation bilaterally Cardio regular rate, regular rhythm, S1 normal heart sound and S2 normal heart sound GI normal to inspection, nondistended, normoactive bowel sounds, soft to palpation,non-tender and non-distended Extremity normal to inspection and full ROM Neuro Sensorium / Orientation: awake and alert Psych affect normal Assessment & Plan Assessment/Plan (1) ABLA (acute blood loss anemia): PLAN: This is secondary to GI bleed from anticoagulation. Status post transfused 3 units PRBCs. (2) GI (gastrointestinal bleed): PLAN: We took a relook at her upper GI tract and possibly place a stent because she was having some signs of gastric outlet obstruction along with GI bleeding in the duodenal bulb transitioning to the first portion of the duodenum. She was explained alternatives, risk and benefits include not withstanding bleeding,pressure, subs, perforation, need for surgery . She have an ASA of 3. 05/02/2025-she is status post repeat upper endoscopy with control of bleed. She had duodenal ulcers retreated with epinephrine, hemostasis. Cautery and Hemospray. Her hemoglobin was 7.7 yesterday. It is 7.6 today. Her BUN/creatinine ratio is improving. I do not see any signs of bleeding at this time. She is okay to advance her diet. (3) Atrial fibrillation with RVR: (4) Transient hypotension: (5) (HFpEF) heart failure with preserved ejection fraction: QUALIFIERS: Heart failure chronicity: acute on chronic Qualified Code(s): I50.33 - Acute on chronic diastolic (congestive) heart failure PLAN: Plan chronic conditions: * DM2: metformin held. SSI. * hypothyroidism: levothyroxine VTE prophylaxis: SCDs. Visit Charges Inpatient E&M: 42891 Subs Hosp L3 05/02/251951 <Electronically signed by Jayden Still DO> Jayden Still DO Cosigner Signature (if applicable): CC: ~ Signed [facility] Work Phone: 1(265) 834-366806-12-2025 Progress note Author Ras Blas [facility] Note Date/Time May 02, 2025 1:[address] [facility] Medical Records Department [address] [place] [address] Progress Note - Hospitalist 05/02/25 0709 MR#: [id number] Acct: [id number] Name: JESS JACKSON Rep #:[id number] : 1940 84 From: Ras Blas DO PCP: Meena Guerra MD Status:ADM IN Location: [place] [address] Reason for Visit Reason for Visit: Diagnoses Acute posthemorrhagic anemia (04/27/25) Unspecified atrial fibrillation (04/27/25) Acute on chronic diastolic (congestive) heart failure (04/27/25) Hypotension, unspecified (04/27/25) Pleural effusion, not elsewhere classified (04/27/25) Gastrointestinal hemorrhage, unspecified (04/27/25) 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 Tolerating clears. Objective Data Objective Data Vital Signs: Vital Signs Temp Pulse Resp BP Pulse Ox O2 Del Method O2 Flow Rate 36.7 C 94 18 83/64 L 97 Nasal Cannula 2 05/02/25 04:00 05/02/25 04:00 05/02/25 04:00 05/02/25 04:00 05/02/25 04:00 05/02/25 04:00 05/02/25 04:00 FiO2 97 05/01/25 15:48 Oxygen Flow Rate (L/min) 2 Oxygen Delivery Method Nasal Cannula Weight: 97.4 kg Body Mass Index (BMI) 40.6 Intake & Output: Intake and Output for Last 24 Hours 04/30/25 05/01/25 05/02/25 23:59 23:59 23:59 Intake Total 1687.5 / 2047.5 560 / 560 Output Total 0 / 0 Balance 1687.5 / 2047.5 560 / 560 Lab / Micro Data 05/02/25 03:49 05/02/25 03:49 Labs: Laboratory Results - last 24 hr 05/01/25 22:17: POC Glucose 142 H 05/02/25 03:49: WBC 10.8, RBC 2.59 L, Hgb 7.6 L, Hct 24.6 L, MCV 95.0, MCH 29.3,MCHC 30.9 L, RDW Std Deviation 53.4 H, RDW Coeff of Marcial 16.2 H, Plt Count 295, MPV 10.0, Immature Gran % (Auto) 0.600, Neut % (Auto) 82.3 H, Lymph % (Auto) 9.0L, Berks % (Auto) 5.9, Eos % (Auto) 1.5, Baso % (Auto) 0.7, Absolute Neuts (auto)8.9 H, Absolute Lymphs (auto) 0.97, Nucleated RBC % 0, Sodium 139, Potassium 4.5, Chloride 105, Carbon Dioxide 26.5, Anion Gap 8, BUN 22 H, Creatinine 1.19, Estim Creat Clear Calc 36.91 L, Est GFR (MDRD) Non-Af 45 L, BUN/Creatinine Ratio18.1, Glucose 106 H, Calcium 8.5 Micro: Microbiology 04/27/25 06:38 Wound - Leg, Right Skin and Soft Tissue MRSA/MSSA (PCR - Final 04/26/25 21:08 Stool Stool Occult Blood (ANDREA) - Final Occult Blood Positive Physical Exam Const alert and no apparent distress HEENT head/scalp atraumatic Resp normal respiratory effort, no retractions, no use of accessory muscles and clearto auscultation bilaterally Cardio regular rate, regular rhythm, S1 normal heart sound and S2 normal heart sound GI normal to inspection, nondistended, normoactive bowel sounds, soft to palpation,non-tender and non-distended Extremity normal to inspection and full ROM Neuro Sensorium / Orientation: awake and alert Psych affect normal Assessment & Plan Assessment/Plan (1) ABLA (acute blood loss anemia): PLAN: 2/2 GIB complicated by apixaban transfused 3 units PRBCs. Monitor (2) GI (gastrointestinal bleed): PLAN: on PPI BID GI consult. Completed prep on 04/27. EGD with oozing duodenal ulcers with a visible vessel. Treated w a heater probe.Colonoscopy with inadequate prep. Diverticulosis in the recto-sigmoid colon. Pt on liquid diet for now in case she has to go back to endoscopy. (3) Atrial fibrillation with RVR: PLAN: pAfib w RVR, now improved already on PO amio. Started on Amiodaron gtt, since discontinued. apixaban held given the GIB. Timing of resumption TBD. Continue PO diltiazem and metoprolol with hold parameters. (4) Transient hypotension: PLAN: BP transiently down to 58/41 on admission, but has recovered. 2/2 ABLA + antihypertensives. Monitor. Monitor Ongoing. Hold diuretics. (5) (HFpEF) heart failure with preserved ejection fraction: QUALIFIERS: Heart failure chronicity: acute on chronic Qualified Code(s): I50.33 - Acute on chronic diastolic (congestive) heart failure PLAN: Increase pulmonary vascular congestion on CXR Pt decline furosemide. Back on metolazone. PLAN: Plan chronic conditions: * DM2: metformin held. SSI. * hypothyroidism: levothyroxine VTE prophylaxis: SCDs. Charges/Coding Visit Charges Inpatient E&M: 87310 Subs Hosp L2 05/02/25 7253 <Electronically signed by Ras Blas DO> Cosigner Signature (if applicable): CC: ~ Signed [facility] Work Phone: 1(612) 851-332306-12-2025 Telephone encounter Note* Telephone Encounter - Gia Majano LPN - 05/02/2025 2:02 PM EDT Louise from [facility] notified of providers message and verbalized understanding [facility]06-12-2025 Miscellaneous Notes* Telephone Encounter - Gia Majano LPN - 05/02/2025 2:02 PM EDT Louise from [facility] notified of providers message and verbalized understanding * Telephone Encounter - Meena Guerra MD - 05/02/2025 1:27 PM EDT Yes Will follow up Meena Asif MD * Telephone Encounter - Sarita Doty RN - 05/02/2025 1:14 PM EDT Louise from [facility] calls and states that patient is being discharged from [facility] either today or tomorrowwith the diagnosis of GI Bleed and A-Fib with RVR. Louise asking if provider willing to follow patientwith orders for shelter, physical therapy, and occupational. If agreeable please give Louise a call back . Thank you, Sarita Doty RN [facility] Telephone encounter Note * Telephone Encounter - Meena Guerra MD - 05/02/2025 1:27 PM EDT Yes Will follow up Regards, Meena Guerra MD [facility]06-12-2025 Telephone encounter Note* Telephone Encounter - Sarita Doty RN - 05/02/2025 1:14 PM EDT Louise from [facility] calls and states that patient is being discharged from [facility] either today or tomorrowwith the diagnosis of GI Bleed and A-Fib with RVR. Louise asking if provider willing to follow patientwith orders for shelter, physical therapy, and occupational. If agreeable please give Louise a call back . Thank you, Sarita Doty RN [facility]06-11-2025 Consult note Author Jovany Lino [facility] Note Date/Time May 01, 2025 5:36 pm [facility] Medical Records Department [address] [place] [address] Anesthesia Postop Eval I 05/01/25 1735 MR#: [id number] Acct: [id number] Name: JESS JACKSON Rep #:[id number] : 1940 84 From: Jovany Lino MD PCP: Ras Childress Status:ADM IN Y Race: C Location: [facility] [place] -1 Anesthesia: Postop Eval I Current Vital Signs Temperature: 97.6 F Pulse Rate: 102 Blood Pressure: 74/54 Respiratory Rate: 18 Pulse Ox: 99 Assessment Airway patent: Yes Spontaneous unlabored respirations: Yes Mental status: Awake nausea: No Vomiting: No Anesthesia Complication: No Fluid Hydration Crystalloid volume administer (ml): 50 Total IV fluid infused: 50 Progress Note Anesthesia document: Postop Eval 1 completed: Yes 05/01/251735 <Electronically signed by Jovany Lino MD > Date _ Jovany Lino MD Cosigner Signature: Date CC: ~ Signed [facility] Work Phone: 1(330) 301-419406-11-2025 Consult note Author Jovany mariana [facility] Note Date/Time May 01, 2025 5:36 pm [facility] Medical Records Department [address] [place] [address] Anesthesia Postop Eval II 05/01/251735 MR#: [id number] Acct: [id number] Name: JESS JACKSON Rep #:[id number] : 1940 84 From: Jovany Lino MD PCP: Ras Childress Status:ADM IN Y Race: C Location: [place] [address] Anesthesia Postop Eval I Sum Postop Eval Completion status Anesthesia document: Postop Eval 1 completed: Yes Anesthesia Postop Eval I Summary Anesthesia Postop Eval I Summary: Anesthesia Postop Eval I: Assessment Summary Airway patent Yes 05/01/25 17:36 Spontaneous unlabored Yes 05/01/25 17:36 respirations Mental status Awake 05/01/25 17:36 nausea No 05/01/25 17:36 Vomiting No 05/01/25 17:36 Anesthesia Postop Eval I: Fluid Summary Crystalloid volume administer 50 05/01/25 17:36 (ml) Colloids volume administered ( ml) Blood Product volume administered (ml) Total IV fluid infused 50 05/01/25 17:36 Anesthesia Postop Eval I: Summary Notes Anesthesia Complication No 05/01/25 17:36 Anesthesia Complication Comment: Post-operative progress note Anesthesia: Postop Eval II Evaluation Mental status: Awake Pain Level: 0 nausea: No Vomiting: No 05/01/25 8766 <Electronically signed by Jovany Lino MD > Date _ Jovany Lino MD [facility] Signature: Date CC: ~ Signed [facility] Work Phone: 1(964) 379-813506-11-2025 Progress note Author Jayden Friend [facility] Note Date/Time May 01, 2025 4:[address] [facility] Medical Records Department [address] [place] [address] Progress Note 05/01/25 1639 MR#: [id number] Acct: [id number] Name: JESS JACKSON Rep #:[id number] : 1940 84 From: Jayden Still DO PCP: Ras Childress Status:ADM IN Location: [place] [address]-1 Progress Note Patient has been n.p.o. for endoscopy today. She denies any abdominal pain. She did get transfused 2 units of packed red blood cells. She is for repeat endoscopy today to look at her duodenal ulcers. Physical Exam Const alert, oriented x3, no apparent distress and healthy appearing General Appearance: cooperative GI normal to inspection, nondistended, normoactive bowel sounds, soft to palpation,non-tender and non-distended Percussion: normal to percussion Rectal Exam: deferred Assessment & Plan Assessment/Plan (1) ABLA (acute blood loss anemia): PLAN: This is secondary to GI bleed from anticoagulation. Status post transfused 3 units PRBCs. (2) GI (gastrointestinal bleed): PLAN: We will relook at her upper GI tract and possibly place a stent because she was having some signs of gastric outlet obstruction along with GI bleeding in the duodenal bulb transitioning to the first portion of the duodenum. She was explained alternatives, risk and benefits include not withstanding bleeding,pressure, subs, perforation, need for surgery . She have an ASA of 3. (3) Atrial fibrillation with RVR: (4) Transient hypotension: (5) (HFpEF) heart failure with preserved ejection fraction: QUALIFIERS: Heart failure chronicity: acute on chronic Qualified Code(s): I50.33 - Acute on chronic diastolic (congestive) heart failure PLAN: Plan chronic conditions: * DM2: metformin held. SSI. * hypothyroidism: levothyroxine VTE prophylaxis: SCDs. Visit Charges Inpatient E&M: 16056 Subs Hosp L3 05/01/25 1642 <Electronically signed by Jayden Still DO> Jayden Still DO Cosigner Signature (if applicable): CC: ~ Signed [facility] Work Phone: 1(952) 457-902506-11-2025 Consult note Author Jovany Lino [facility] Note Date/Time May 01, 2025 3:49 pm [facility] Medical Records Department [address] [place] [address] Pre-Anesthesia Evaluation 05/01/25 1548 MR#: [id number] Acct: [id number] Name: JESS JACKSON Rep #:[id number] : 1940 84 From: Jovany Lino MD PCP: Ras Childress Status:ADM IN Y Race: C [address]: [address] ASA Classification* ASA Classification ASA Classification: 3 Assessment & Plan Anesthesia* Anesthesia Assessment Anesthesia Assessment: Discussed sedation and/or anesthesia options, risks, benefits, and alternatives with patient/parents/legal guardian/POA. Questions invited. The patient/parents/legal guardian/POA seems to understand and agrees to proceedwith anesthesia plan. Reviewed the physical assessment, medical history, allergy history and patient home medications list prior to surgery/procedure/anesthetic and documented any changes. Performed airway and anesthesia risk assessments. Anesthesia Type Anesthesia Type: MAC Anesthesia Focused Assessment* Temperature: 97.4 F Pulse Rate: 96 Blood Pressure: 108/63 Respiratory Rate: 18 Pulse Ox: 98 Oxygen Flow Rate (L/min): 2 Fraction of Inspired Oxygen (FIO2): 97 Airway Assessment Mouth opens: >3 cm Mallampati Score: II Labs Anesthesia Preop lab: CBC WBC 12.5 K/mm3 (4.4-11.0) H 05/01/25 03:45 5 RBC 2.64 M/mm3 (4.2-5.4) L 05/01/25 03:45 05/01/25 Hgb 7.7 g/dL (12.0-15.0) L 05/01/25 03:45 05/01/25 Hct 24.5 % (37-47) L 05/01/25 03:45 05/01/25 Plt Count 262 K/mm3 (150-450) 05/01/25 03:45 05/01/25 CHEMISTRY Potassium 4.3 mmol/L (3.3-5.1) 05/01/25 03:45 05/01/25 Sodium 138 mmol/L (133-145) 05/01/25 03:45 05/01/25 Magnesium 1.7 mg/dL (1.5-2.2) 04/28/25 05:40 04/28/25 Phosphorus 2.2 mg/dL (2.7-4.5) L 04/24/25 14:50 04/24/25 BUN 26 mg/dL (4-19) H 05/01/25 03:45 05/01/25 Creatinine 1.24 mg/dL (0.70-1.20) H 05/01/25 03:45 Glucose 127 mg/dL (70-99) H 05/01/25 03:45 05/01/25 POC Glucose 104 mg/dL (74-106) 05/01/25 06:32 05/01/25 TSH 4.920 uIU/mL (0.358-3.740) H 01/08/25 10:40 COAG PT 20.4 SECONDS (11.7-14.9) H 04/26/25 20:45 0605/15 Pre-Assessment Diagnosis/Proposed Procedure Planned Operative Procedure(s): EGD Anesthesia History 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 When Was Last Pacemaker Check QUESTION #4 FULL TEXT: You/Your Family Experience fever (hyperthermia) with Anesthesia Last Oral Intake Last Oral intake: Last Oral Intake NPO since Meds taken in AM with sips of water? 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 equipment Female HX of Motion Sickness HX of N/V After Surgery Non-Smoker Duration of Surgery greater than 60 minutes Number of Risk Factors PONV Score Height & Weight Height & Weight: Anesthesia: Height & Weight Height 5 ft 1 in 04/29/25 09:43 Weight: 93.712 kg 05/01/25 04:38 Body Mass Index (BMI) 39.0 05/01/25 04:38 Respiratory Assessment Respiratory Assessment - repairer welding systems and equipment: Respiratory Tract Infection Hx - repairer welding systems and equipment Hx Respiratory Tract Infection STOP Sleep Apnea STOP Sleep Apnea - repairer welding systems and equipment: STOP Sleep Apnea - repairer welding systems and equipment Hx Hypertension No 04/28/25 09:21 Hx Sleep Apnea No 04/29/25 14:35 CPAP BIPAP Do you snore loudly (louder No 04/27/25 06:12 than talking or can be heard Do you often feel tired/ No 04/27/25 06:12 fatigued/ sleepy during daytime? Has anyone observed you stop No 04/27/25 06:12 breathing during sleep? STOP Results Negative 04/29/25 14:22 QUESTION #5 FULL TEXT : Do you snore loudly (louder than talking or can be heard through closed doors)? 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 Specify any problems Hx of Preganancy in last 3 N/A 04/27/25 06:12 Months Nurse Filling Out Transfusion JGALLOWMAYRA 04/27/25 06:12 & Questions: Date: 04/27/25 04/27/25 06:12 Time: :04/27/25 06:12 Patient unable to answer at this time (ie. confused, unrespo /Reproduction History /Reproductive History - repairer welding systems and equipment: /Reproductive Hx- repairer welding systems and equipment Hx Now Gestational Age (in weeks): EDC: Hx Hx Para Hx Section SAB Active Medications Active Medications: Current Medications Generic Name Dose Route Start Last Admin Trade Name Freq PRN Reason Stop Dose Admin Acetaminophen 650 mg 04/27/25 06:12 Acetaminophen 325 Mg Tablet PO Q4H PRN PRN Fever, pain -08/30 Al Hydroxide/Mg Hydroxide 30 ml 04/27/25 06:12 Mag Hydrox/Al Hydrox/Simeth 30 Ml Udc PO Q6H PRN PRN Gastric Burning Amiodarone HCl 200 mg 04/27/25 08:00 05/01/25 08:20 Amiodarone 200 Mg Tablet PO 200 mg BIDCM SERG Administration Atorvastatin Calcium 10 mg 04/27/25 22:00 04/30/25 21:20 Atorvastatin Calcium 10 Mg Tablet PO 10 mg QHS SERG Administration Calamine/Phenol 1 applic 04/27/25 10:00 05/01/25 11:29 Menthol/Lanolin/Calamine/Znox 113 Gm Tube TOPICAL Not Given 4X/DAY SERG Protocol Diltiazem HCl 240 mg 04/28/25 12:20 05/01/25 11:28 Diltiazem Cd 240 Mg Capsule PO 240 mg DAILY SERG Administration Protocol Furosemide 40 mg 05/01/25 18:00 Furosemide 40 Mg/4 Ml Vial IV BIDLX SERG Protocol Gabapentin 300 mg 04/27/25 22:00 04/30/25 21:24 Gabapentin 300 Mg Capsule PO 300 mg QHS SERG Administration Glucagon 1 mg 04/27/25 06:12 Glucagon 1 Mg/Ml Syringe IM X1 PRN HYPOGLYCEMIA Protocol Guaifenesin 10 ml 04/27/25 06:12 Guaifenesin 10 Ml Udc (200mg/10ml) PO Q4H PRN PRN COUGH Dextrose 250 mls @ 0 mls/hr 04/27/25 06:12 Dextrose 10%-Water IV .Q0M PRN HYPOGLYCEMIA Protocol As Directed Sodium Chloride 250 mls @ 15 mls/hr 04/27/25 06:13 04/28/25 19:10 IV 0 mls/hr .[id number] PRN Infusion Saline Flush Sodium Chloride 250 mls @ 15 mls/hr 04/27/25 06:13 IV .[id number] PRN Additional IVPB Infusion Pantoprazole Sodium 40 mg/ 100 mls @ 330 mls/hr 04/28/25 22:00 05/01/25 12:03 Sodium Chloride IV Infused Q12 SERG Infusion Insulin Human Lispro 0 unit 04/28/25 07:00 05/01/25 12:01 Insulin Lispro 100 Unit/Ml Insuln.Pen SC Not Given ACHS [facility] Protocol Levothyroxine Sodium 100 mcg 04/27/25 06:12 05/01/25 06:34 Levothyroxine 100 Mcg Tablet PO 100 mcg DAILY@0600 SERG Administration Metolazone 5 mg 05/01/25 15:00 Metolazone 5 Mg Tablet PO DAILY [facility] Protocol Metoprolol Tartrate 50 mg 04/28/25 22:00 05/01/25 11:25 Metoprolol Tartrate 50 Mg Tablet PO 50 mg BID SERG Administration Protocol Nutritional Formula (Lactose Free) 120 ml 04/29/25 12:00 05/01/25 12:01 Glucerna Shake 120 Ml Liquid PO Not Given TIDCM [facility] Ondansetron HCl 4 mg 04/27/25 06:12 Ondansetron 4 Mg/2 Ml Vial IV Q8H PRN PRN NAUSEA/VOMITING Prochlorperazine Edisylate 5 mg 04/27/25 06:12 Prochlorperazine 10 Mg/2 Ml Vial IV Q4H PRN PRN Breakthrough Nausea/Vomiting Sodium Chloride 10 - 40 ml 04/27/25 06:13 04/28/25 21:01 0.9% Saline Lock 10 Ml Syringe IV 10 ml UD PRN Administration SALINE FLUSH Sucralfate 1 gm 04/30/25 07:00 05/01/25 11:29 Sucralfate 1 Gm Tablet PO Not Given [facility] Medical History Diabetes Kidney disease Non-smoker Venous (peripheral) insufficiency Atrial fibrillation CHF (congestive heart failure) Venous stasis ulcer Hyperpigmentation of skin Lipodermatosclerosis of both lower extremities Right leg swelling Left leg swelling Varicose veins of lower extremity with inflammation, 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 Chronic venous insufficiency Generalized osteoarthrosis History of right breast cancer Cardiomegaly Home Medications ?Medication ?Instructions ?Recorded ?Last Taken ?Type gabapentin 300 mg capsule 300 mg PO QHS Neuropathy 09/0604/15/25 History (Neurontin) levothyroxine 100 mcg tablet 100 mcg PO DAILY thyroid 09/30/17 04/16/25 History lisinopril 40 mg tablet 40 mg PO DAILY blood pressur e 09/30/17 04/15/25 History metformin 500 mg 24 hr 500 mg PO BID diabetes 09/3004/16/25 History tablet,extended release (gastric retention) pentoxifylline 400 mg 1 tab PO TID circulation 09/0604/16/25 History tablet,extended release acetaminophen 500 mg tablet 1,000 mg PO QHS PRN pain 0 01/08/25 Unknown History (Acetaminophen Extra Strength) cetirizine 10 mg tablet (24Hour 10 mg PO DAILY PRN all ergy symptoms 01/08/25 Unknown History Allergy) diosmin complex no.1 630 mg tablet 1 tab PO DAILY 12/2204/15/25 History (Vasculera) orwopsxbaurn-auiqpgcb-wkwksl 1 tab PO DAILY vitamin 04/16/25 History tablet (A Thru Z High Potency tablet) simvastatin 20 mg tablet 20 mg PO QHS cholesterol 04/15/25 History apixaban 5 mg tablet (Eliquis) 5 mg PO BID blood thinn er 90 days 01/23/25 04/16/25 Rx #180 tabs diltiazem HCl 240 mg 240 mg PO DAILY heart rate 3 01/23/25 04/16/25 Rx capsule,extended release 24 hr months #90 caps (Cardizem CD) metoprolol tartrate 50 mg tablet 50 mg PO BID blood pr essure 90 01/23/25 04/16/25 Rx days #180 tabs biotin 5,000 mcg sublingual tablet 5,000 mcg sublingua l DAILY 04/16/25 04/15/25 History supplement semaglutide 0.25 mg or 0.5 mg (2 0.5 mg subcut QWEEK d iabetes 04/16/25 Unknown History mg/1.5 mL) subcutaneous pen injector (Ozempic) amiodarone 200 mg tablet 200 mg PO BID #60 tabs 04/26 Unknown Rx guaifenesin 600 mg tablet, 600 mg PO BID #20 tabs 05/15 Unknown Rx extended release 12 hr (Mucinex) metolazone 5 mg tablet 5 mg PO DAILY #30 tabs 04/26 Unknown Rx Allergy/AdvReac Type Severity Reaction Status Date / Time enoxaparin (From Lovenox) Allergy Unknown Verified 04/26/25 21:15 oxycodone Allergy Unknown Verified 04/26/25 21:15 Penicillins (PCN) Allergy Unknown Verified 04/26/25 21:15 Family History Father Heart disease Hypertension Heart failure Mother Kidney disease Heart disease Cancer Surgical History History of lumpectomy of right breast History of lumbar laminectomy History of total replacement of both hip joints History of total bilateral knee replacement (TKR) Social History household members: spouse Smoking Status: Never smoker alcohol intake: never substance use type: does not use Review of Systems (Anesthesia) ROS Narrative System reviewed and no additional complaints, except as documented. 05/01/25 1549 <Electronically signed by Jovany Lino MD > Date _ Jovany Lino MD Cosigner Signature: Date CC: ~ Signed [facility] Work Phone: 1(727) 499-328306-11-2025 Procedure [facility] 05-01-2025 Procedure [facility]06-11-2025 Progress note Author Ras Blas [facility] Note Date/Time May 01, 2025 1:38 pm [facility] Medical Records Department [address] [place] [address] Progress Note - Hospitalist 05/01/25 0721 MR#: [id number] Acct: [id number] Name: JESS JACKSON Rep #:[id number] : 1940 84 From: Ras Blas DO PCP: Ras Childress Status:ADM IN Location: [facility] [place]-5 Reason for Visit Reason for Visit: Diagnoses Acute posthemorrhagic anemia (04/27/25) Unspecified atrial fibrillation (04/27/25) Acute on chronic diastolic (congestive) heart failure (04/27/25) Hypotension, unspecified (04/27/25) Pleural effusion, not elsewhere classified (04/27/25) Gastrointestinal hemorrhage, unspecified (04/27/25) 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 No shortness of breath. Objective Data Objective Data Vital Signs: Vital Signs Temp Pulse Resp BP Pulse Ox O2 Del Method O2 Flow Rate 36.7 C 85 19 H 100/65 100 Nasal Cannula 2 05/01/25 06:00 05/01/25 06:00 05/01/25 06:00 05/01/25 06:00 05/01/25 06:00 05/01/25 06:00 05/01/25 06:00 FiO2 2 04/29/25 12:23 Oxygen Flow Rate (L/min) 2 Oxygen Delivery Method Nasal Cannula Weight: 93.712 kg Body Mass Index (BMI) 39.0 Intake & Output: Intake and Output for Last 24 Hours 04/29/25 04/30/25 05/01/25 23:59 23:59 23:59 Intake Total 250 / 250 1687.5 / 2047.5 360 / 360 Output Total 502 / 502 0 / 0 Balance -252 / -252 1687.5 / 2047.5 360 / 360 Lab / Micro Data 05/01/25 03:45 05/01/25 03:45 Labs: Laboratory Results - last 24 hr 04/26/25 21:11: Crossmatch See Detail 04/30/25 07:02: Blood Type O POSITIVE, Antibody Screen NEGATIVE, Crossmatch See Detail 04/30/25 11:15: POC Glucose 147 H 04/30/25 16:38: POC Glucose 130 H 04/30/25 21:14: POC Glucose 165 H 04/30/25 22:00: Hgb 7.7 L, Hct 24.2 L 05/01/25 03:45: WBC 12.5 H, RBC 2.64 L, Hgb 7.7 L, Hct 24.5 L, MCV 92.8, MCH 29.2, MCHC 31.4 L, RDW Std Deviation 51.0 H, RDW Coeff of Marcial 15.8 H, Plt Count 262, MPV 9.7, Immature Gran % (Auto) 1.000 H, Neut % (Auto) 78.9 H, Lymph % (Auto) 9.4 L, [place] % (Auto) 7.9, Eos % (Auto) 2.2, Baso % (Auto) 0.6, Absolute Neuts (auto) 9.9 H, Absolute Lymphs (auto) 1.18, Nucleated RBC % 0.2, Sodium 138, Potassium 4.3, Chloride 104, Carbon Dioxide 26.8, Anion Gap 8, BUN 26 H, Creatinine 1.24 H, Estim Creat Clear Calc 34.60 L, Est GFR (MDRD) Non-Af 43 L, BUN/Creatinine Ratio 20.9 H, Glucose 127 H, Calcium 8.4 05/01/25 06:32: POC Glucose 104 Micro: Microbiology 04/27/25 06:38 Wound - Leg, Right Skin and Soft Tissue MRSA/MSSA (PCR - Final 04/26/25 21:08 Stool Stool Occult Blood (ANDREA) - Final Occult Blood Positive Physical Exam Narrative POCUS: indication for CHF. Suxiphoid showed IVC wasn not collapsable with respiration. B-line lungs anteriorly. LV grossly normal. Const alert and no apparent distress Resp normal respiratory effort, no retractions, no use of accessory muscles and clearto auscultation bilaterally Cardio regular rate, regular rhythm, S1 normal heart sound and S2 normal heart sound GI normal to inspection, nondistended, normoactive bowel sounds, soft to palpation,non-tender and non-distended Neuro Sensorium / Orientation: awake and alert Assessment & Plan Assessment/Plan (1) ABLA (acute blood loss anemia): PLAN: 2/2 GIB complicated by apixaban transfused 3 units PRBCs. Monitor (2) GI (gastrointestinal bleed): PLAN: on PPI BID GI consult. Completed prep on 04/27. EGD with oozing duodenal ulcers with a visible vessel. Treated w a heater probe.Colonoscopy with inadequate prep. Diverticulosis in the recto-sigmoid colon. (3) Atrial fibrillation with RVR: PLAN: pAfib w RVR, now improved already on PO amio. Started on Amiodaron gtt, since discontinued. apixaban held given the GIB. Timing of resumption TBD. Continue PO diltiazem and metoprolol with hold parameters. (4) Transient hypotension: PLAN: BP transiently down to 58/41 on admission, but has recovered. 2/2 ABLA + antihypertensives. Monitor. improved. Monitor (5) (HFpEF) heart failure with preserved ejection fraction: QUALIFIERS: Heart failure chronicity: acute on chronic Qualified Code(s): I50.33 - Acute on chronic diastolic (congestive) heart failure PLAN: Increase pulmonary vascular congestion on CXR Resume IV furosmide. PLAN: Plan chronic conditions: * DM2: metformin held. SSI. * hypothyroidism: levothyroxine VTE prophylaxis: SCDs. Charges/Coding Visit Charges Inpatient E&M: 66315 Subs Hosp L2 05/01/25 1338 <Electronically signed by Ras Blas DO> Cosigner Signature (if applicable): CC: ~ Signed [facility] Work Phone: [phone]) [phone] Progress note Author Jayden Friend [facility] Note Date/Time April 30, 2025 7:32 pm [facility] Medical Records Department [address] [place] [address] Progress Note 04/30/251929 MR#: [id number] Acct: [id number] Name: JESS JACKSON ALIX Rep #:[id number] : 1940 84 From: Jayden Still DO PCP: Ras Childress Status:ADM IN Location: ICU CVICU20 3-1 Progress Note Patient's hemoglobin is back down to 6.6. She is getting transfused 1 unit packed red blood cells. Physical Exam Const alert, oriented x3, no apparent distress and healthy appearing General Appearance: cooperative GI normal to inspection, nondistended, normoactive bowel sounds, soft to palpation,non-tender and non-distended Percussion: normal to percussion Rectal Exam: deferred Assessment & Plan Assessment/Plan (1) GI (gastrointestinal bleed): (2) Atrial fibrillation with RVR: PLAN: Plan 84 y/o F with acute GI bleed. [facility] with increasing weakness, malaise in addition to concern for bloody diarrhea with intermittent abdominal discomfort with no nausea or emesis and upon arrival patient noted to be significantly tachycardic in A-fib. She is status post reversal of anticoagulation. She will need to undergo an upper or lower endoscopy to evaluate her upper and lower GI tract. She was explained alternatives, risk, benefits including and not withstanding bleeding, infection, perforation, need for emergent urgent . She will have an ASA of3. 04/30/2025-states her hemoglobin is back down to 6.6 we will need to perform an repeat EGD tomorrow with control of bleed and possible stent placement to allow better healing for the ulcers in her duodenum. Visit Charges Inpatient E&M: 80651 Subs Hosp L3 04/30/251931 <Electronically signed by Jayden Still DO> Jayden Still DO Cosigner Signature (if applicable): CC: ~ Signed [facility] Work Phone: [phone] 828-855006-10-2025 Progress note Author Ras Blas [facility] Note Date/Time April 30, 2025 1:43 pm [facility] Medical Records Department [address] [place] [address] Progress Note - Hospitalist 04/30/25 0700 MR#: [id number] Acct: [id number] Name: JESS JACKSON Rep #:[id number] : 1940 84 From: Ras Blas DO PCP: Ras Childress Status:ADM IN Location: ICU CVU20 3-1 Reason for Visit Reason for Visit: Diagnoses Acute posthemorrhagic anemia (04/27/25) Unspecified atrial fibrillation (04/27/25) Acute on chronic diastolic (congestive) heart failure (04/27/25) Hypotension, unspecified (04/27/25) Pleural effusion, not elsewhere classified (04/27/25) Gastrointestinal hemorrhage, unspecified (04/27/25) 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 Fatigued. Objective Data Objective Data Vital Signs: Vital Signs Temp Pulse Resp BP Pulse Ox O2 Del Method O2 Flow Rate 37.1 C 96 20 H 100/76 100 Nasal Cannula 2 04/30/25 06:00 04/30/25 06:00 04/30/25 06:00 04/30/25 06:00 04/30/25 06:00 04/30/25 06:00 04/30/25 06:00 FiO2 2 04/29/25 12:23 Oxygen Flow Rate (L/min) 2 Oxygen Delivery Method Nasal Cannula Weight: 93.485 kg Body Mass Index (BMI) 38.9 Intake & Output: Intake and Output for Last 24 Hours 04/28/25 04/29/25 04/30/25 23:59 23:59 23:59 Intake Total 1669.75 / 1669.75 250 / 250 Output Total 1400 / 1400 502 / 502 0 / 0 Balance 269.75 / 269.75 -252 / -252 0 / 0 Lab / Micro Data 04/30/25 05:29 04/30/25 05:29 Labs: Laboratory Results - last 24 hr 04/29/25 09:22: POC Glucose 92 04/29/25 11:18: POC Glucose 89 04/29/25 15:46: POC Glucose 110 H 04/29/25 22:16: POC Glucose 109 H 04/30/25 05:29: WBC 12.2 H, RBC 2.27 L, Hgb 6.6 L, Hct 20.8 L, MCV 91.6, MCH 29.1, MCHC 31.7 L, RDW Std Deviation 51.4 H, RDW Coeff of Marcial 16.0 H, Plt Count 265, MPV 9.9, Immature Gran % (Auto) 0.900, Neut % (Auto) 81.2 H, Lymph % (Auto)9.1 L, Berks % (Auto) 6.8, Eos % (Auto) 1.5, Baso % (Auto) 0.5, Absolute Neuts (auto) 9.9 H, Absolute Lymphs (auto) 1.10, Nucleated RBC % 0.2, Sodium 140, Potassium 4.3, Chloride 105, Carbon Dioxide 25.1, Anion Gap 9, BUN 28 H, Creatinine 1.19, Estim Creat Clear Calc 36.05 L, Est GFR (MDRD) Non-Af 45 L, BUN/Creatinine Ratio 23.7 H, Glucose 102 H, Calcium 8.2 04/30/25 05:49: POC Glucose 87 Micro: Microbiology 04/27/25 06:38 Wound - Leg, Right Skin and Soft Tissue MRSA/MSSA (PCR - Final 04/26/25 21:08 Stool Stool Occult Blood (ANDREA) - Final Occult Blood Positive Physical Exam Const alert and no apparent distress HEENT head/scalp atraumatic and moist oral mucous membranes Resp normal respiratory effort and no retractions Resp Narrative: bibasilar crackles. Cardio regular rate, regular rhythm, S1 normal heart sound and S2 normal heart sound GI normal to inspection, nondistended, normoactive bowel sounds, soft to palpation,non-tender and non-distended Neuro Sensorium / Orientation: awake and alert Assessment & Plan Assessment/Plan (1) ABLA (acute blood loss anemia): PLAN: 2/2 GIB complicated by apixaban transfused 2 units PRBCs. Hg was stable but down to 6.6 today. Will transfuse another unit. (2) GI (gastrointestinal bleed): PLAN: on PPI gtt GI consult. Completed prep on 04/27. EGD with oozing duodenal ulcers with a visible vessel. Treated w a heater probe.Colonoscopy with inadequate prep. Diverticulosis in the recto-sigmoid colon. (3) Atrial fibrillation with RVR: PLAN: pAfib w RVR already on PO amio. Started on Amiodaron gtt, since discontinued. apixaban held given the GIB. Timing of resumption TBD. Continue PO diltiazem and metoprolol with hold parameters. (4) Transient hypotension: PLAN: BP transiently down to 58/41 on admission, but has recovered. 2/2 ABLA + antihypertensives. Monitor. improved. Monitor PLAN: Plan chronic conditions: * DM2: metformin held. SSI. * HFpEF:EF 55-60%. edematous. will give a 1x dose of IV furosemide. * hypothyroidism: levothyroxine VTE prophylaxis: SCDs. Pt had a text with numerous questions from her family. With her permission, I created a note with those questions and my answers. I showed pt how to text it to her family members.. Charges/Coding Visit Charges Inpatient E&M: 58622 Subs Hosp L2 04/30/25 1343 <Electronically signed by Ras Blas DO> Cosigner Signature (if applicable): CC: ~ Signed [facility] Work Phone: [phone] 719-193506-09-2025 Procedure [facility] 04-29-2025 Procedure [facility]06-09-2025 Procedure note [facility]2025 Procedure [facility] 04-29-2025 Consult note Author Jovany Lino [facility] Note Date/Time April 29, 2025 2:58p m [facility] Medical Records Department [address] [place] [address] Anesthesia Postop Eval II 04/29/25 1458 MR#: [id number] Acct: [id number] Name: JESS JACKSON Rep #:[id number] : 1940 84 From: Jovany Lino MD PCP: Ras Childress Status:ADM IN Y Race: C Location: ICU CVICU 203-1 Anesthesia Postop Eval I Sum Postop Eval Completion status Anesthesia document: Postop Eval 1 completed: Yes Anesthesia Postop Eval I Summary Anesthesia Postop Eval I Summary: Anesthesia Postop Eval I: Assessment Summary Airway patent Yes 04/29/25 14:32 [email or web address] Spontaneous unlabored Yes 04/29/25 14:32 [email or web address] respirations Mental status Awake,Calm 04/29/25 14:32 [email or web address] nausea No 04/29/25 14:32 [email or web address] Vomiting No 04/29/25 14:32 [email or web address] Anesthesia Postop Eval I: Fluid Summary Crystalloid volume administer 600 04/29/25 14:32 [email or web address] (ml) Colloids volume administered ( ml) Blood Product volume administered (ml) Total IV fluid infused 600 04/29/25 14:32 [email or web address] Anesthesia Postop Eval I: Summary Notes Anesthesia Complication No 04/29/25 14:32 [email or web address] Anesthesia Complication Comment: Post-operative progress note Anesthesia: Postop Eval II Evaluation Mental status: Awake Pain Level: 0 nausea: No Vomiting: No 04/29/25 1458 <Electronically signed by Jovany Lino MD > Date _ Jovany Lyon Signature: Date CC: ~ Signed [facility] Work Phone: [phone] Consult note Author Matty Dawkins [facility] Note Date/Time April 29, 2025 2:32p m [facility] Medical Records Department [address] [place] [address] Anesthesia Postop Eval I 04/29/25 143 MR#: [id number] Acct: [id number] Name: JESS JACKSON Rep #:[id number] : 1940 84 From: Matty Dawkins PCP: Ras Childress Status:ADM IN Y Race: C [facility]: Postop Eval I Current Vital Signs Temperature: 98.8 F Pulse Rate: 99 Blood Pressure: 120/77 Respiratory Rate: 16 Pulse Ox: 95 Oxygen Delivery Method: Room Air Assessment Airway patent: Yes Spontaneous unlabored respirations: Yes Mental status: Awake and Calm nausea: No Vomiting: No Anesthesia Complication: No Fluid Hydration Crystalloid volume administer (ml): 600 Total IV fluid infused: 600 Progress Note Anesthesia document: Postop Eval 1 completed: Yes 04/29/25 1432 <Electronically signed by Matty Dawkins > Date _ Matty Lyon Signature: Date CC: ~ Signed [facility] Work Phone: [phone]) 446-328606-09-2025 Telephone encounter Note* Telephone Encounter - Meena Guerra MD - 04/29/2025 4:28 PM EDT Noted Regards, Meena Guerra MD [facility]06-09-2025 Miscellaneous Notes* Telephone Encounter - Meena Guerra MD - 04/29/2025 4:28 PM EDT Noted Regards, Meena Guerra MD * Telephone Encounter - Lauren Andino LPN - 04/29/2025 8:22 AM EDT Pt's KARAN calls to give update on pt. Michael reports that pt is back in [facility]. Was discharged Tuesday morning and back in the hospital Kenn evening for trouble breathing. Michael reports pt's hbg is low and pt was given two bags of blood. Pt's hbg continues to be low. Pt has Afib, CHF, and fluid in lungs. Michael reports the dr's are going to evaluate pt today to see what is next. Family wanted to keep pcp updated. Appt for today was cancelled. Lauren Andino LPN [facility] Progress note Author Ras Blas [facility] Note Date/Time April 29, 2025 1:03p [facility] Medical Records Department [address] [place] [address] Progress Note - Hospitalist 04/29/25 1256 MR#: [id number] Acct: [id number] Name: JESS JACKSON Rep #:[id number] : 1940 84 From: Ras Blas DO PCP: Ras Childress Status:ADM IN Location: ICU CVICU 3-1 Reason for Visit Reason for Visit: Diagnoses Acute posthemorrhagic anemia (04/27/25) Unspecified atrial fibrillation (04/27/25) Acute on chronic diastolic (congestive) heart failure (04/27/25) Hypotension, unspecified (04/27/25) Pleural effusion, not elsewhere classified (04/27/25) Gastrointestinal hemorrhage, unspecified (04/27/25) long-term (current) use of anticoagulants (04/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 No further bleeding. Objective Data Objective Data Vital Signs: Vital Signs Temp Pulse Resp BP Pulse Ox O2 Del Method O2 Flow Rate 36.8 C 101 H 30 H 110/62 96 Room Air 2 04/29/25 12:23 04/29/25 12:23 04/29/25 12:23 04/29/25 12:23 04/29/25 12:23 04/29/25 10:00 04/29/25 12:23 FiO2 2 04/29/25 12:23 Oxygen Flow Rate (L/min) 2 Oxygen Delivery Method Room Air Weight: 93.939 kg Body Mass Index (BMI) 39.1 Intake & Output: Intake and Output for Last 24 Hours 04/27/25 04/28/25 04/29/25 23:59 23:59 23:59 Intake Total 1315.60 / 1315.60 1669.75 / 1669.75 150 / 150 Output Total 1555 / 1805 1400 / 1400 500 / 500 Balance -239.40 / -489.40 269.75 / 269.75 -350 / -350 Lab / Micro Data 04/29/25 05:09 04/29/25 05:09 Labs: Laboratory Results - last 24 hr 04/28/25 11:30: Hgb 8.3 L, Hct 26.3 L 04/28/25 13:02: POC Glucose 85 04/28/25 18:49: POC Glucose 90 04/28/25 21:03: POC Glucose 77 04/29/25 05:09: WBC 13.2 H, RBC 2.74 L, Hgb 7.9 L, Hct 24.9 L, MCV 90.9, MCH 28.8, MCHC 31.7 L, RDW Std Deviation 53.1 H, RDW Coeff of Marcial 16.5 H, Plt Count 272, MPV 10.1, Immature Gran % (Auto) 0.800, Neut % (Auto) 81.7 H, Lymph % (Auto) 8.3 L, Berks % (Auto) 6.2, Eos % (Auto) 2.4, Baso % (Auto) 0.6, Absolute Neuts (auto) 10.8 H, Absolute Lymphs (auto) 1.10, Nucleated RBC % 0.2, Sodium 141, Potassium 4.0, Chloride 106, Carbon Dioxide 24.4, Anion Gap 10, BUN 30 H, Creatinine 1.13, Estim Creat Clear Calc 38.07 L, Est GFR (MDRD) Non-Af 48 L, BUN/Creatinine Ratio 26.9 H, Glucose 104 H, Calcium 8.5 04/29/25 09:22: POC Glucose 92 04/29/25 11:18: POC Glucose 89 Micro: Microbiology 04/27/25 06:38 Wound - Leg, Right Skin and Soft Tissue MRSA/MSSA (PCR - Final 04/26/25 21:08 Stool Stool Occult Blood (ANDREA) - Final Occult Blood Positive Radiography Diagnostic Testing: Radiology Impression Chest X-Ray 04/29/25 05:55 IMPRESSION: Increased right pleural effusion. Unchanged minimal left pleural effusion. Increased passive atelectatic airspace disease of the lower lobes. Increased pulmonary venous congestion. Enlarged cardiac silhouette. Reading Location: [place] [address] Physical Exam Const alert and no apparent distress HEENT head/scalp atraumatic and moist oral mucous membranes Resp normal respiratory effort, no retractions, no use of accessory muscles and clearto auscultation bilaterally Cardio regular rate, regular rhythm, S1 normal heart sound and S2 normal heart sound GI normal to inspection, nondistended, normoactive bowel sounds, soft to palpation,non-tender and non-distended Extremity normal to inspection and full ROM Assessment & Plan Assessment/Plan (1) Transient hypotension: PLAN: BP transiently down to 58/41, but has recovered. 2/2 ABLA + antihypertensives. Monitor. improved. Monitor (2) ABLA (acute blood loss anemia): PLAN: 2/2 GIB complicated by apixaban transfused 2 units PRBCs. Hemoglobin has remained stable since then (3) GI (gastrointestinal bleed): PLAN: on PPI gtt GI consult. Completed prep on 04/27. Down for endoscopy today. (4) Atrial fibrillation with RVR: PLAN: pAfib w RVR already on PO amio. Started on Amiodaron gtt. apixaban held given the GIB. Timing of resumption TBD. Resume PO diltiazem and metoprolol with hold parameters. PLAN: Plan chronic conditions: * DM2: metformin held. SSI. * HFpEF: monitor for volume overload. EF 55-60%. * hypothyroidism: levothyroxine VTE prophylaxis: SCDs. Charges/Coding Visit Charges Inpatient E&M: 91604 Subs Hosp L2 04/29/25 1303 <Electronically signed by Ras Blas DO> Cosigner Signature (if applicable): CC: ~ Signed [facility] Work Phone: [phone]) [phone] Progress note Author Jayden Still [facility] Note Date/Time April 29, 2025 12:[address] [facility] Medical Records Department [address] [place] [address] Progress Note 04/29/25 1249 MR#: [id number] Acct: [id number] Name: JESS JACKSON Rep #:[id number] : 1940 84 From: Jayden Still DO PCP: Ras Childress Status:ADM IN Location: ICU CVICU20 3-1 Progress Note Patient has been n.p.o. for upper endoscopy and possible colonoscopy. Physical Exam Const alert, oriented x3, no apparent distress and healthy appearing General Appearance: cooperative GI normal to inspection, nondistended, normoactive bowel sounds, soft to palpation,non-tender and non-distended Percussion: normal to percussion Rectal Exam: deferred Assessment & Plan Assessment/Plan (1) GI (gastrointestinal bleed): (2) Atrial fibrillation with RVR: PLAN: Plan 84 y/o F with acute GI bleed. [facility] with increasing weakness, malaise in addition to concern for bloody diarrhea with intermittent abdominal discomfort with no nausea or emesis and upon arrival patient noted to be significantly tachycardic in A-fib. She is status post reversal of anticoagulation. She will need to undergo an upper or lower endoscopy to evaluate her upper and lower GI tract. She was explained alternatives, risk, benefits including and not withstanding bleeding, infection, perforation, need for emergent urgent . She will have an ASA of3. Visit Charges Inpatient E&M: 07705 Subs Hosp L3 04/29/25 1250 <Electronically signed by Jayden Still DO> Jayden Still DO Cosigner Signature (if applicable): CC: ~ Signed [facility] Work Phone: [phone] Consult note Author Jovany Lino [facility] Note Date/Time April 29, 2025 12:23 pm [facility] Medical Records Department [address] [place] [address] Pre-Anesthesia Evaluation 04/29/25 1221 MR#: [id number] Acct: [id number] Name: JESS JACKSON Rep #:[id number] : 1940 84 From: Jovany Lino MD PCP: Ras Childress Status:ADM IN Y Race: C Location: ICU CVICU 203-1 ASA Classification* ASA Classification ASA Classification: 3 Assessment & Plan Anesthesia* Anesthesia Assessment Anesthesia Assessment: Discussed sedation and/or anesthesia options, risks, benefits, and alternatives with patient/parents/legal guardian/POA. Questions invited. The patient/parents/legal guardian/POA seems to understand and agrees to proceedwith anesthesia plan. Reviewed the physical assessment, medical history, allergy history and patient home medications list prior to surgery/procedure/anesthetic and documented any changes. Performed airway and anesthesia risk assessments. Anesthesia Type Anesthesia Type: MAC Anesthesia Focused Assessment* Temperature: 98.3 F Pulse Rate: 101 Blood Pressure: 110/62 Respiratory Rate: 30 Pulse Ox: 96 Oxygen Flow Rate (L/min): 2 Fraction of Inspired Oxygen (FIO2): 2 Airway Assessment Mouth opens: >3 cm Mallampati Score: II Labs Anesthesia Preop lab: CBC WBC 13.2 K/mm3 (4.4-11.0) H 04/29/25 05:09 5 RBC 2.74 M/mm3 (4.2-5.4) L 04/29/25 05:09 04/29/25 Hgb 7.9 g/dL (12.0-15.0) L 04/29/25 05:09 04/29/25 Hct 24.9 % (37-47) L 04/29/25 05:09 04/29/25 Plt Count 272 K/mm3 (150-450) 04/29/25 05:09 04/29/25 CHEMISTRY Potassium 4.0 mmol/L (3.3-5.1) 04/29/25 05:09 04/29/25 Sodium 141 mmol/L (133-145) 04/29/25 05:09 04/29/25 Magnesium 1.7 mg/dL (1.5-2.2) 04/28/25 05:40 04/28/25 Phosphorus 2.2 mg/dL (2.7-4.5) L 04/24/25 14:50 04/24/25 BUN 30 mg/dL (4-19) H 04/29/25 05:09 04/29/25 Creatinine 1.13 mg/dL (0.70-1.20) 04/29/25 05:09 04/29/25 Glucose 104 mg/dL (70-99) H 04/29/25 05:09 04/29/25 POC Glucose 89 mg/dL (74-106) 04/29/25 11:18 04/29/25 TSH 4.920 uIU/mL (0.358-3.740) H 01/08/25 10:40 COAG PT 20.4 SECONDS (11.7-14.9) H 04/26/25 20:45 0605/15 Pre-Assessment Diagnosis/Proposed Procedure Planned Operative Procedure(s): EGD/colonoscopy. 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 When Was Last Pacemaker Check QUESTION #4 FULL TEXT: You/Your Family Experience fever (hyperthermia) with Anesthesia Last Oral Intake Last Oral intake: Last Oral Intake NPO since Meds taken in AM with sips of water? 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 equipment Female HX of Motion Sickness HX of N/V After Surgery Non-Smoker Duration of Surgery greater than 60 minutes Number of Risk Factors PONV Score Height & Weight Height & Weight: Anesthesia: Height & Weight Height 5 ft 1 in 04/29/25 09:43 Weight: 93.939 kg 04/29/25 09:43 Body Mass Index (BMI) 39.1 04/29/25 05:26 Respiratory Assessment Respiratory Assessment - repairer welding systems and equipment: Respiratory Tract Infection Hx - repairer welding systems and equipment Hx Respiratory Tract Infection STOP Sleep Apnea STOP Sleep Apnea - repairer welding systems and equipment: STOP Sleep Apnea - repairer welding systems and equipment Hx Hypertension No 04/28/25 09:21 Hx Sleep Apnea No 04/27/25 06:12 CPAP BIPAP Do you snore loudly (louder No 04/27/25 06:12 than talking or can be heard Do you often feel tired/ No 04/27/25 06:12 fatigued/ sleepy during daytime? Has anyone observed you stop No 04/27/25 06:12 breathing during sleep? STOP Results Negative 04/27/25 06:12 QUESTION #5 FULL TEXT : Do you snore loudly (louder than talking or can be heard through closed doors)? 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 Specify any problems Hx of Preganancy in last 3 N/A 04/27/25 06:12 Months Nurse Filling Out Transfusion JGALREX 04/27/25 06:12 & Questions: Date: 04/27/25 04/27/25 06:12 Time: 06:04/27/25 06:12 Patient unable to answer at this time (ie. confused, unrespo /Reproduction History /Reproductive History - repairer welding systems and equipment: /Reproductive Hx- repairer welding systems and equipment Hx Now Gestational Age (in weeks): EDC: Hx Hx Para Hx Section SAB Active Medications Active Medications: Current Medications Generic Name Dose Route Start Last Admin Trade Name Freq PRN Reason Stop Dose Admin Acetaminophen 650 mg 04/27/25 06:12 Acetaminophen 325 Mg Tablet PO Q4H PRN PRN Fever, pain 1-08/30 Al Hydroxide/Mg Hydroxide 30 ml 04/27/25 06:12 Mag Hydrox/Al Hydrox/Simeth 30 Ml Udc PO Q6H PRN PRN Gastric Burning Amiodarone HCl 200 mg 04/27/25 08:00 04/29/25 09:23 Amiodarone 200 Mg Tablet PO 200 mg BIDCM SERG Administration Atorvastatin Calcium 10 mg 04/27/25 22:00 04/28/25 21:06 Atorvastatin Calcium 10 Mg Tablet PO 10 mg QHS SERG Administration Calamine/Phenol 1 applic 04/27/25 10:00 04/29/25 09:25 Menthol/Lanolin/Calamine/Znox 113 Gm Tube TOPICAL 1 applic 4X/DAY SERG Administration Protocol Diltiazem HCl 240 mg 04/28/25 12:20 04/29/25 09:23 Diltiazem Cd 240 Mg Capsule PO 240 mg DAILY SERG Administration Protocol Gabapentin 300 mg 04/27/25 22:00 04/28/25 21:09 Gabapentin 300 Mg Capsule PO 300 mg QHS SERG Administration Glucagon 1 mg 04/27/25 06:12 Glucagon 1 Mg/Ml Syringe IM X1 PRN HYPOGLYCEMIA Protocol Guaifenesin 10 ml 04/27/25 06:12 Guaifenesin 10 Ml Udc (200mg/10ml) PO Q4H PRN PRN COUGH Dextrose 250 mls @ 0 mls/hr 04/27/25 06:12 Dextrose 10%-Water IV .Q0M PRN HYPOGLYCEMIA Protocol As Directed Sodium Chloride 250 mls @ 15 mls/hr 04/27/25 06:13 04/28/25 19:10 IV 0 mls/hr .[id number] PRN Infusion Saline Flush Sodium Chloride 250 mls @ 15 mls/hr 04/27/25 06:13 IV .[id number] PRN Additional IVPB Infusion Pantoprazole Sodium 40 mg/ 100 mls @ 330 mls/hr 04/28/25 22:00 04/29/25 10:01 Sodium Chloride IV Infused Q12 SERG Infusion Insulin Human Lispro 0 unit 04/28/25 07:00 04/29/25 11:27 Insulin Lispro 100 Unit/Ml Insuln.Pen SC Not Given ACHS SERG Protocol Levothyroxine Sodium 100 mcg 04/27/25 06:12 04/29/25 05:09 Levothyroxine 100 Mcg Tablet PO 100 mcg DAILY@0600 SERG Administration Metoprolol Tartrate 50 mg 04/28/25 22:00 04/29/25 10:49 Metoprolol Tartrate 50 Mg Tablet PO 50 mg BID SERG Administration Protocol Nutritional Formula (Lactose Free) 120 ml 04/29/25 12:00 04/29/25 11:28 Glucerna Shake 120 Ml Liquid PO Not Given TIDCM SERG Ondansetron HCl 4 mg 04/27/25 06:12 Ondansetron 4 Mg/2 Ml Vial IV Q8H PRN PRN NAUSEA/VOMITING Prochlorperazine Edisylate 5 mg 04/27/25 06:12 Prochlorperazine 10 Mg/2 Ml Vial IV Q4H PRN PRN Breakthrough Nausea/Vomiting Sodium Chloride 10 - 40 ml 04/27/25 06:13 04/28/25 21:01 0.9% Saline Lock 10 Ml Syringe IV 10 ml UD PRN Administration SALINE FLUSH PFSH Medical History Diabetes Kidney disease Non-smoker Venous (peripheral) insufficiency Atrial fibrillation CHF (congestive heart failure) Venous stasis ulcer Hyperpigmentation of skin Lipodermatosclerosis of both lower extremities Right leg swelling Left leg swelling Varicose veins of lower extremity with inflammation, 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 Chronic venous insufficiency Generalized osteoarthrosis History of right breast cancer Cardiomegaly Home Medications ?Medication ?Instructions ?Recorded ?Last Taken ?Type gabapentin 300 mg capsule 300 mg PO QHS Neuropathy 09/0604/15/25 History (Neurontin) levothyroxine 100 mcg tablet 100 mcg PO DAILY thyroid 09/30/17 04/16/25 History lisinopril 40 mg tablet 40 mg PO DAILY blood pressur e 09/30/17 04/15/25 History metformin 500 mg 24 hr 500 mg PO BID diabetes 09/3004/16/25 History tablet,extended release (gastric retention) pentoxifylline 400 mg 1 tab PO TID circulation 09/0604/16/25 History tablet,extended release acetaminophen 500 mg tablet 1,000 mg PO QHS PRN pain 0 01/08/25 Unknown History (Acetaminophen Extra Strength) cetirizine 10 mg tablet (24Hour 10 mg PO DAILY PRN all ergy symptoms 01/08/25 Unknown History Allergy) diosmin complex no.1 630 mg tablet 1 tab PO DAILY 12/2204/15/25 History (Vasculera) ilwxsibuvqmp-yizwlyea-tuptbz 1 tab PO DAILY vitamin 04/16/25 History tablet (A Thru Z High Potency tablet) simvastatin 20 mg tablet 20 mg PO QHS cholesterol 04/15/25 History apixaban 5 mg tablet (Eliquis) 5 mg PO BID blood thinn er 90 days 01/23/25 04/16/25 Rx #180 tabs diltiazem HCl 240 mg 240 mg PO DAILY heart rate 3 01/23/25 04/16/25 Rx capsule,extended release 24 hr months #90 caps (Cardizem CD) metoprolol tartrate 50 mg tablet 50 mg PO BID blood pr essure 90 01/23/25 04/16/25 Rx days #180 tabs biotin 5,000 mcg sublingual tablet 5,000 mcg sublingua l DAILY 04/16/25 04/15/25 History supplement semaglutide 0.25 mg or 0.5 mg (2 0.5 mg subcut QWEEK d iabetes 04/16/25 Unknown History mg/1.5 mL) subcutaneous pen injector (Ozempic) amiodarone 200 mg tablet 200 mg PO BID #60 tabs 04/26 Unknown Rx guaifenesin 600 mg tablet, 600 mg PO BID #20 tabs 05/15 Unknown Rx extended release 12 hr (Mucinex) metolazone 5 mg tablet 5 mg PO DAILY #30 tabs 04/26 Unknown Rx Allergy/AdvReac Type Severity Reaction Status Date / Time enoxaparin (From Lovenox) Allergy Unknown Verified 04/26/25 21:15 oxycodone Allergy Unknown Verified 04/26/25 21:15 Penicillins (PCN) Allergy Unknown Verified 04/26/25 21:15 Family History Father Heart disease Hypertension Heart failure Mother Kidney disease Heart disease Cancer Surgical History History of lumpectomy of right breast History of lumbar laminectomy History of total replacement of both hip joints History of total bilateral knee replacement (TKR) Social History household members: spouse Smoking Status: Never smoker alcohol intake: never substance use type: does not use Review of Systems (Anesthesia) ROS Narrative System reviewed and no additional complaints, except as documented. 04/29/25 1223 <Electronically signed by Jovany Lino MD > Date _ Jovany Lino MD Cosign Signature: Date CC: ~ Signed [facility] Work Phone: 1(336) 845-631306-09-2025 Progress note Author Jae Wong [facility] Note Date/Time April 29, 2025 9:12a m [facility] Medical Records Department [address] [place] [address] Progress Note - Mold Blower 04/29/25 0701 MR#: [id number] Acct: [id number] Name: JESS JACKSON Rep #:[id number] : 1940 84 From: Jae Wong DO PCP: Ras Childress Status:ADM IN Location: ICU CVICU20 3-1 Assessment & Plan Assessment/Plan (1) (HFpEF) heart failure with preserved ejection fraction: QUALIFIERS: Heart failure chronicity: acute on chronic Qualified Code(s): I50.33 - Acute on chronic diastolic (congestive) heart failure (2) Pleural effusion: (3) ABLA (acute blood loss anemia): (4) Transient hypotension: (5) Chronic anticoagulation: PLAN: Plan RECOMMENDATIONS: 1. Continue PPI therapy as ordered. 2. Tentative plans for endoscopic evaluation by gastroenterology. 3. Transfuse blood products to maintain hemoglobin at or above 7 g/dL. 4. Encourage incentive spirometer use and mobilize patient as tolerated. 5. The patient is medically stable for transfer out of the intensive care unit. Will sign off from a critical care perspective. IMPRESSIONS: 1. Acute blood loss anemia secondary to GI bleed due to apixaban Continue current supportive measures, including transfusion of blood products tomaintain hemoglobin at or above 7 g/dL. Continue PPI therapy. Continue to holdsystemic anticoagulation. Tentative plans for endoscopic evaluation by gastroenterology later today. 2. Recurrent bilateral pleural effusions, right greater than left Most likely secondary to heart failure with preserved ejection fraction. The patient has a history of a recurrent right-sided pleural effusion, which has proven to be transudative in nature. This is felt to be related to the patient's CHF. During prior hospitalizations, it was recommended that the patient be referred to thoracic surgery if she continues to have a recurrent effusion that is refractory to the use of diuretics. 3. Paroxysmal atrial fibrillation/hypertension/hypothyroidism/obesity/diabetes mellitus Complicates care, management, recovery and prognosis. Continue supportive measures as noted above. This note was generated with [employer] dictation software. It may contain incorrectwords, spelling, and punctuation that were not noted in checking the note beforesigning. Subjective Subjective The patient was seen and examined at the bedside this morning. Events from the last 24 hours have been reviewed. The patient is currently afebrile, hemodynamically stable and maintaining appropriate oxygen saturations on room air. The patient has no specific complaints this morning. White blood cell count is mildly elevated at 13,000 with a hemoglobin of 7.9 g/dL and platelet count of 272,000. Creatinine is within normal limits. Per gastroenterology, there are tentative plans for endoscopic evaluation later today. Objective Data Objective Data The patient's most recent lab work, culture data and imaging studies have all been personally reviewed. Vital Signs: Vital Signs Temp Pulse Resp BP Pulse Ox O2 Del Method O2 Flow Rate 98 F 103 H 25 H 110/65 98 Room Air 2 04/29/25 06:00 04/29/25 06:00 04/29/25 06:00 04/29/25 06:00 04/29/25 06:00 04/29/25 06:00 04/27/25 20:00 FiO2 2 04/27/25 02:48 Oxygen Flow Rate (L/min) 2 Oxygen Delivery Method Room Air Weight: 207 lb 1.6 oz Body Mass Index (BMI) 39.1 Intake & Output: Intake and Output for Last 24 Hours 04/27/25 04/28/25 04/29/25 23:59 23:59 23:59 Intake Total 1315.60 / 1315.60 1669.75 / 1669.75 Output Total 1555 / 1805 1400 / 1400 500 / 500 Balance -239.40 / -489.40 269.75 / 269.75 -500 / -500 Lab / Micro Data Attestation: I reviewed the patient's lab results. 04/29/25 05:09 04/29/25 05:09 Labs: Laboratory Results - last 24 hr 04/28/25 11:30: Hgb 8.3 L, Hct 26.3 L 04/28/25 13:02: POC Glucose 85 04/28/25 18:49: POC Glucose 90 04/28/25 21:03: POC Glucose 77 04/29/25 05:09: WBC 13.2 H, RBC 2.74 L, Hgb 7.9 L, Hct 24.9 L, MCV 90.9, MCH 28.8, MCHC 31.7 L, RDW Std Deviation 53.1 H, RDW Coeff of Marcial 16.5 H, Plt Count 272, MPV 10.1, Immature Gran % (Auto) 0.800, Neut % (Auto) 81.7 H, Lymph % (Auto) 8.3 L, Berks % (Auto) 6.2, Eos % (Auto) 2.4, Baso % (Auto) 0.6, Absolute Neuts (auto) 10.8 H, Absolute Lymphs (auto) 1.10, Nucleated RBC % 0.2, Sodium 141, Potassium 4.0, Chloride 106, Carbon Dioxide 24.4, Anion Gap 10, BUN 30 H, Creatinine 1.13, Estim Creat Clear Calc 38.07 L, Est GFR (MDRD) Non-Af 48 L, BUN/Creatinine Ratio 26.9 H, Glucose 104 H, Calcium 8.5 Micro: Microbiology 04/27/25 06:38 Wound - Leg, Right Skin and Soft Tissue MRSA/MSSA (PCR - Final 04/26/25 21:08 Stool Stool Occult Blood (ANDREA) - Final Occult Blood Positive Radiography Diagnostic Testing: Radiology Impression Chest X-Ray 04/29/25 05:55 IMPRESSION: Increased right pleural effusion. Unchanged minimal left pleural effusion. Increased passive atelectatic airspace disease of the lower lobes. Increased pulmonary venous congestion. Enlarged cardiac silhouette. Reading Location: [place] [address] Physical Exam Const alert, oriented x3 and no apparent distress General Appearance: cooperative HEENT normocephalic, head/scalp atraumatic and moist oral mucous membranes Eyes PERRL, EOMs intact bilaterally and conjunctivae normal Neck supple General: trachea midline Chest inspection of chest normal Resp normal respiratory effort Auscultation: diminished lung sounds; Negative for rales, rhonchi or wheezes Cardio S1 normal heart sound and S2 normal heart sound Rate: tachycardic GI normal to inspection, nondistended, normoactive bowel sounds Extremity no clubbing, cyanosis or edema Skin no rashes or lesions noted Neuro CN's II-XII intact bilaterally, moves all extremities and no focal motor deficits Psych cooperative and affect normal Charges/Coding Visit Charges Inpatient E&M: 60509 Subs Hosp L2 04/29/2512 <Electronically signed by Jae Wong DO> Cosigner Signature (if applicable): CC: ~ Signed [facility] Work Phone: [phone]) [phone] Telephone encounter Note* Telephone Encounter - Lauren Andino LPN - 04/29/2025 8:22 AM EDT Pt's KARAN calls to give update on pt. Michael reports that pt is back in [facility]. Was discharged Tuesday morning and back in the hospital Tuesday evening for trouble breathing. Michael reports pt's hbg is low and pt was given two bags of blood. Pt's hbg continues to be low. Pt has Afib, CHF, and fluid in lungs. Michael reports the dr's are going to evaluate pt today to see what is next. Family wanted to keep pcp updated. Appt for today was cancelled. Lauren Andino LPN [facility]06-09-2025 Radiology Diagnostic study [facility]06-08-2025 Progress note Author Ras Blas [facility] Note Date/Time April 28, 2025 12:23 pm [facility] Medical Records Department [address] [place] [address] Progress Note - Hospitalist 04/28/25 0655 MR#: [id number] Acct: [id number] Name: JESS JACKSON Rep #:[id number] : 1940 84 From: Ras Blas DO PCP: Ras Childress Status:ADM IN Location: ICU CVICU 3-1 Reason for Visit Reason for Visit: Diagnoses Acute posthemorrhagic anemia (04/27/25) Unspecified atrial fibrillation (04/27/25) Hypotension, unspecified (04/27/25) Gastrointestinal hemorrhage, unspecified (04/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 Tolerated colon prep yesterday. Denies hematochezia. Objective Data Objective Data Vital Signs: Vital Signs Temp Pulse Resp BP Pulse Ox O2 Del Method O2 Flow Rate 36.6 C 118 H 23 H 99/70 95 Bi-pap 2 04/28/25 05:00 04/28/25 06:00 04/28/25 06:00 04/28/25 06:00 04/28/25 06:00 04/28/25 06:00 04/27/25 20:00 FiO2 2 04/27/25 02:48 Oxygen Flow Rate (L/min) 2 Oxygen Delivery Method Bi-pap Weight: 98.974 kg Body Mass Index (BMI) 41.2 Intake & Output: Intake and Output for Last 24 Hours 04/26/25 04/27/25 04/28/25 23:59 23:59 23:59 Intake Total 1215 / 1215 1315.60 / 1315.60 600 / 600 Output Total 1555 / 1805 550 / 550 Balance 1215 / 1215 -239.40 / -489.40 50 / 50 Lab / Micro Data 04/28/25 05:40 04/28/25 05:40 Labs: Laboratory Results - last 24 hr 04/27/25 06:57: POC Glucose 110 H 04/27/25 12:14: POC Glucose 133 H 04/27/25 12:15: Hgb 7.9 L, Hct 24.0 L 04/27/25 17:45: POC Glucose 107 H 04/27/25 22:22: POC Glucose 97 04/28/25 05:40: WBC 12.0 H, RBC 2.55 L, Hgb 7.3 L, Hct 22.5 L, MCV 88.2, MCH 28.6, MCHC 32.4, RDW Std Deviation 51.1 H, RDW Coeff of Marcial 16.3 H, Plt Count 238, MPV 10.3, Immature Gran % (Auto) 1.200 H, Neut % (Auto) 75.0 H, Lymph % (Auto) 12.8 L, Berks % (Auto) 7.2, Eos % (Auto) 3.2, Baso % (Auto) 0.6, Absolute Neuts (auto) 9.0 H, Absolute Lymphs (auto) 1.54, Nucleated RBC % 0, Sodium 140, Potassium 3.9, Chloride 107, Carbon Dioxide 24.0, Anion Gap 9, BUN 37 H, Creatinine 1.11, Estim Creat Clear Calc 39.93 L, Est GFR (MDRD) Non-Af 49 L, BUN/Creatinine Ratio 33.2 H, Glucose 119 H, Calcium 8.1, Magnesium 1.7, Total Bilirubin 0.35, AST 26, ALT 16, Alkaline Phosphatase 61, Total Protein 4.6 L, Albumin 2.3 L, Globulin 2.4, Albumin/Globulin Ratio 1.0 Micro: Microbiology 04/27/25 06:38 Wound - Leg, Right Skin and Soft Tissue MRSA/MSSA (PCR - Final 04/26/25 21:08 Stool Stool Occult Blood (ANDREA) - Final Occult Blood Positive Physical Exam Const alert and no apparent distress HEENT head/scalp atraumatic and moist oral mucous membranes Resp normal respiratory effort, no retractions, no use of accessory muscles and clearto auscultation bilaterally Cardio regular rate, regular rhythm, S1 normal heart sound and S2 normal heart sound GI normal to inspection, nondistended, normoactive bowel sounds, soft to palpation,non-tender and non-distended Neuro Sensorium / Orientation: awake and alert Assessment & Plan Assessment/Plan (1) Transient hypotension: PLAN: BP transiently down to 58/41, but has recovered. 2/2 ABLA + antihypertensives. Monitor. improved. Monitor (2) ABLA (acute blood loss anemia): PLAN: 2/2 GIB complicated by apixaban transfused 2 units PRBCs. Monitor. Hg down to 7.3 today. Will monitor. (3) GI (gastrointestinal bleed): PLAN: on PPI gtt GI consult. Completed prep on 04/27. (4) Atrial fibrillation with RVR: PLAN: pAfib w RVR already on PO amio. Started on Amiodaron gtt. apixaban held given the GIB. Timing of resumption TBD. Resume PO diltiazem and metoprolol with hold parameters. PLAN: Plan chronic conditions: * DM2: metformin held. SSI. * HFpEF: monitor for volume overload. EF 55-60%. * hypothyroidism: levothyroxine VTE prophylaxis: SCDs. Transfer to PCU. Charges/Coding Visit Charges Inpatient E&M: 00204 Subs Hosp L2 04/28/25 1223 <Electronically signed by Ras Blas DO> Cosigner Signature (if applicable): CC: ~ Signed [facility] Work Phone: 1(825) 949-758506-08-2025 Progress note Author Migel Akins [facility] Note Date/Time April 28, 2025 10:[address] [facility] Medical Records Department [address] [place] [address] [place] [address] Progress Note - Mold Blower 04/28/25 0850 MR#: [id number] Acct: [id number] Name: JESS JACKSON Rep #:[id number] : 1940 84 From: Migel Akins MD PCP: Ras Childress Status:ADM IN Location: ICU [place] [address] 3-1 Objective Data Objective Data Vital Signs: Vital Signs Last response 3 Temperature 36.6 C 04/28/25 05:00 Temperature Source Oral 04/28/25 05:00 Pulse Rate 126 H 04/28/25 07:00 Respiratory Rate 21 H 04/28/25 07:00 Respiratory Effort Normal 04/27/25 16:00 Respiratory Depth Shallow 04/27/25 16:00 Respiratory Pattern Normal 04/27/25 16:00 Blood Pressure 114/67 04/28/25 07:00 Blood Pressure Mean 82 04/28/25 07:00 Blood Pressure Source Monitor 04/27/25 18:00 Blood Pressure Position Semi-Fowlers 04/27/25 18:00 Blood Pressure Location Right Arm 04/27/25 18:00 Pulse Ox 94 04/28/25 07:07 Oxygen Delivery Method Room Air 04/28/25 07:07 Oxygen Flow Rate (L/min) 2 04/27/25 20:00 Fraction of Inspired Oxygen (FIO2) 2 04/27/25 02:48 EtCo2 - Document during CPR and with ROSC 108 04/27/25 01:27 I&O: I&O Last 24 Hours 3 04/27/25 04/27/25 04/28/25 11:59 23:59 11:59 Intake Total 886 / 1315.60 429.60 / 1315.60 600 / 600 Output Total 655 / 1805 900 / 1805 550 / 550 Balance 231 / -489.40 -470.40 / -489.40 50 / 50 I&O: Total Stay 3 04/26/25 20:36 thru 04/28/25 06:00 Intake Total 3130.60 Output Total 2105 Balance 1025.60 Current Meds Ordered / Administered: Current meds ordered / Administered 3 Generic Name Dose Route Start Last Admin Trade Name Freq PRN Reason Stop Dose Admin Acetaminophen 650 mg 04/27/25 06:12 Acetaminophen 325 Mg Tablet PO Q4H PRN PRN Fever, pain 1-08/30 Al Hydroxide/Mg Hydroxide 30 ml 04/27/25 06:12 Mag Hydrox/Al Hydrox/Simeth 30 Ml Udc PO Q6H PRN PRN Gastric Burning Amiodarone HCl 200 mg 04/27/25 08:00 04/27/25 13:19 Amiodarone 200 Mg Tablet PO Not Given BIDCM SERG Atorvastatin Calcium 10 mg 04/27/25 22:00 04/27/25 22:23 Atorvastatin Calcium 10 Mg Tablet PO 10 mg QHS SERG Administration Calamine/Phenol 1 applic 04/27/25 10:00 04/27/25 22:23 Menthol/Lanolin/Calamine/Znox 113 Gm Tube TOPICAL 1 applic 4X/DAY SERG Administration Protocol Gabapentin 300 mg 04/27/25 22:00 04/27/25 22:23 Gabapentin 300 Mg Capsule PO 300 mg QHS SERG Administration Glucagon 1 mg 04/27/25 06:12 Glucagon 1 Mg/Ml Syringe IM X1 PRN HYPOGLYCEMIA Protocol Guaifenesin 10 ml 04/27/25 06:12 Guaifenesin 10 Ml Udc (200mg/10ml) PO Q4H PRN PRN COUGH Pantoprazole Sodium 80 mg/ 100 mls @ 10 mls/hr 04/26/25 21:09 04/28/25 02:42 Sodium Chloride CONT INF 10 mls/hr Q10H SERG Administration Dextrose 250 mls @ 0 mls/hr 04/27/25 06:12 Dextrose 10%-Water IV .Q0M PRN HYPOGLYCEMIA Protocol As Directed Sodium Chloride 250 mls @ 15 mls/hr 04/27/25 06:13 IV .[id number] PRN Saline Flush Sodium Chloride 250 mls @ 15 mls/hr 04/27/25 06:13 IV .[id number] PRN Additional IVPB Infusion Amiodarone HCl 360 mg/ 200 mls @ 16.667 mls/hr 04/27/25 16:30 04/28/25 05:51 Dextrose CONT INF 04/28/25 10:29 0.5 mg/min .Q12H SERG 16.7 mls/hr Administration 0.5 MG/MIN Insulin Human Lispro 0 unit 04/28/25 07:00 04/28/25 06:40 Insulin Lispro 100 Unit/Ml Insuln.Pen SC Not Given ACHS SERG Protocol Levothyroxine Sodium 100 mcg 04/27/25 06:12 04/28/25 05:24 Levothyroxine 100 Mcg Tablet PO 100 mcg DAILY@0600 SERG Administration Ondansetron HCl 4 mg 04/27/25 06:12 Ondansetron 4 Mg/2 Ml Vial IV Q8H PRN PRN NAUSEA/VOMITING Prochlorperazine Edisylate 5 mg 04/27/25 06:12 Prochlorperazine 10 Mg/2 Ml Vial IV Q4H PRN PRN Breakthrough Nausea/Vomiting Sodium Chloride 10 - 40 ml 04/27/25 06:13 04/27/25 12:16 0.9% Saline Lock 10 Ml Syringe IV 10 ml UD PRN Administration SALINE FLUSH Lab / Micro Data 04/28/25 05:40 04/28/25 05:40 Labs: Laboratory Results - last 24 hr 04/27/25 12:14: POC Glucose 133 H 04/27/25 12:15: Hgb 7.9 L, Hct 24.0 L 04/27/25 17:45: POC Glucose 107 H 04/27/25 22:22: POC Glucose 97 04/28/25 05:40: WBC 12.0 H, RBC 2.55 L, Hgb 7.3 L, Hct 22.5 L, MCV 88.2, MCH 28.6, MCHC 32.4, RDW Std Deviation 51.1 H, RDW Coeff of Marcial 16.3 H, Plt Count 238, MPV 10.3, Immature Gran % (Auto) 1.200 H, Neut % (Auto) 75.0 H, Lymph % (Auto) 12.8 L, Berks % (Auto) 7.2, Eos % (Auto) 3.2, Baso % (Auto) 0.6, Absolute Neuts (auto) 9.0 H, Absolute Lymphs (auto) 1.54, Nucleated RBC % 0, Sodium 140, Potassium 3.9, Chloride 107, Carbon Dioxide 24.0, Anion Gap 9, BUN 37 H, Creatinine 1.11, Estim Creat Clear Calc 39.93 L, Est GFR (MDRD) Non-Af 49 L, BUN/Creatinine Ratio 33.2 H, Glucose 119 H, Calcium 8.1, Magnesium 1.7, Total Bilirubin 0.35, AST 26, ALT 16, Alkaline Phosphatase 61, Total Protein 4.6 L, Albumin 2.3 L, Globulin 2.4, Albumin/Globulin Ratio 1.0 Micro: Microbiology 04/27/25 06:38 Wound - Leg, Right Skin and Soft Tissue MRSA/MSSA (PCR - Final Assessment and Plan . Assessment and plan: Subjective: No acute events o/n. No further bleeding noted. However having some mild gas pain/bloating Physical Exam: Gen - NAD, obese HEENT - MMM. Sclera anicteric Resp - Diminished in bases. Breathing nonlabored CV - Tachycardic, irregular. No m/g/r Abd - Soft, NT, ND Ext - No c/c. +LE edema Skin - No rashes? Neuro - Grossly nonfocal. Alert and oriented I have reviewed the pertinent vital sign, laboratory, and imaging data. ASSESSMENT: # Acute GI bleed - bloody diarrhea per pt. Reports receiving eliquis the day prior to onset of sx while still in hospital # Hypotension # Acute hypoxic respiratory failure # Afib w/ RVR - on amio/eliquis at home # HFpEF # R breast Ca s/p lumpectomy # Chronic lymphedema # CKD requiring prior temporary HD # HTN # DM with neuropathy # Chronic anemia PLAN: -On RA now, monitor sats. Encourage IS, OOB to chair. Repeat ABG/CXR if worsening -Monitor for recurrent hypotension -Cont PPI gtt. GI following. They are planning for Hgb recheck this afternoon and based on this will consider endoscopy either later today or tmrw. No recurrent bleeding/diarrhea thus far -Follow CBC. s/p 2U pRBC and 1U PCC on admit. -Cont IV amio gtt for now given worsening RVR. OK to resume PO amio now as well,GI stated OK for clear liquids for now. Give additional IV mag today as well. May need additional rate control meds if HR not improving -Monitor for worsening volume overload, will likely need to resume some gentle diuresis when stable -SQ insulin FEN/GI: Clear liquids per GI Proph DVT/GI: SCDs, PPI gtt Code status: DNR but OK with intubation Updated son at bedside Critical Care Time: 50 mins The entirety of this encounter was done via telemedicine using both audio and video. Consent was obtained. 04/28/25 1042 <Electronically signed by Migel Akins MD> Cosigner Signature (if applicable): CC: ~ Signed [facility] Work Phone: [phone] Progress note Author Dayana Page [facility] Note Date/Time April 27, 2025 9:56p m [facility] Medical Records Department [address] [place] [address] Progress Note - Hospitalist 04/27/252154 MR#: [id number] Acct: [id number] Name: JESS JACKSON Rep #:[id number] : 1940 84 From: Dayana Abel MD PCP: Ras Childress Status:ADM IN Location: ICU CVICU20 3-1 Hospitalist Note Patient requesting sleeping pill. Notes melatonin does not work she notes. Will trial low dose trazodone. 04/27/252155 <Electronically signed by Dayana Abel MD> Cosigner Signature (if applicable): CC: ~ Signed [facility] Work Phone: 1(578) 840-380106-07-2025 Consult note Author Migel Akins [facility] Note Date/Time April 27, 2025 8:47p m [facility] Medical Records Department [address] [place] [address] Consultation - Mold Blower 04/27/25 0846 MR#: [id number] Acct: [id number] Name: JESS JACKSON Rep #:[id number] : 1940 84 From: Migel Akins MD PCP: Ras Childress Status:ADM IN Location: ICU CVICU20 3-1 HPI Consult Data Date of Consult: 04/27/25 HPI Narrative HPI Narrative: JESS JACKSON, is a 84yo F w/ R breast Ca s/p lumpectomy, chronic lymphedema, paroxysmal Afib on eliquis, CKD requiring prior temporary HD, HFpEF, HTN, DM with neuropathy, chronic anemia who was admitted fo weakness and bloody diarrhea. She was recently hospitalized here for respiratory failure and volume overload requiring temporary HD, and thoracentesis x 2 + paracentesis. She reports she was off eliquis most of the admission for procedures, but received adose on 04/25. She was subsequently discharged 04/26. After going home she developedacute onset blood diarrhea, abd pain, followed by nonbloody vomiting; this prompted her to come back to ED here. She was noted to be in Afib w/ RVR, hypotensive, and with Hgb drop to 7.1. She was given 2U pRBC and 1U PCC for eliquis reversal. She reports feeling substantially better now, no further vomiting/diarrhea so far today. Still with mild RVR but denies CP, dyspnea. Denies prior h/o GI bleed. ROS: 12-point ROS negative except as per HPI [facility] Medical History Diabetes Kidney disease Non-smoker Venous (peripheral) insufficiency Atrial fibrillation CHF (congestive heart failure) Venous stasis ulcer Hyperpigmentation of skin Lipodermatosclerosis of both lower extremities Right leg swelling Left leg swelling Varicose veins of lower extremity with inflammation, 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 Chronic venous insufficiency Generalized osteoarthrosis History of right breast cancer Cardiomegaly Home Medications ?Medication ?Instructions ?Recorded ?Last Taken ?Type gabapentin 300 mg capsule 300 mg PO QHS Neuropathy 09/0604/15/25 History (Neurontin) levothyroxine 100 mcg tablet 100 mcg PO DAILY thyroid 09/30/17 04/16/25 History lisinopril 40 mg tablet 40 mg PO DAILY blood pressur e 09/30/17 04/15/25 History metformin 500 mg 24 hr 500 mg PO BID diabetes 09/3004/16/25 History tablet,extended release (gastric retention) pentoxifylline 400 mg 1 tab PO TID circulation 09/0604/16/25 History tablet,extended release acetaminophen 500 mg tablet 1,000 mg PO QHS PRN pain 0 01/08/25 Unknown History (Acetaminophen Extra Strength) cetirizine 10 mg tablet (24Hour 10 mg PO DAILY PRN all ergy symptoms 01/08/25 Unknown History Allergy) diosmin complex no.1 630 mg tablet 1 tab PO DAILY 12/2204/15/25 History (Vasculera) elkxhfnqjbgp-fhstbgil-xvkykb 1 tab PO DAILY vitamin 04/16/25 History tablet (A Thru Z High Potency tablet) simvastatin 20 mg tablet 20 mg PO QHS cholesterol 04/15/25 History apixaban 5 mg tablet (Eliquis) 5 mg PO BID blood thinn er 90 days 01/23/25 04/16/25 Rx #180 tabs diltiazem HCl 240 mg 240 mg PO DAILY heart rate 3 01/23/25 04/16/25 Rx capsule,extended release 24 hr months #90 caps (Cardizem CD) metoprolol tartrate 50 mg tablet 50 mg PO BID blood pr essure 90 01/23/25 04/16/25 Rx days #180 tabs biotin 5,000 mcg sublingual tablet 5,000 mcg sublingua l DAILY 04/16/25 04/15/25 History supplement semaglutide 0.25 mg or 0.5 mg (2 0.5 mg subcut QWEEK d iabetes 04/16/25 Unknown History mg/1.5 mL) subcutaneous pen injector (Ozempic) amiodarone 200 mg tablet 200 mg PO BID #60 tabs 04/26 Unknown Rx guaifenesin 600 mg tablet, 600 mg PO BID #20 tabs 05/15 Unknown Rx extended release 12 hr (Mucinex) metolazone 5 mg tablet 5 mg PO DAILY #30 tabs 04/26 Unknown Rx Allergy/AdvReac Type Severity Reaction Status Date / Time enoxaparin (From Lovenox) Allergy Unknown Verified 04/26/25 21:15 oxycodone Allergy Unknown Verified 04/26/25 21:15 Penicillins (PCN) Allergy Unknown Verified 04/26/25 21:15 Family History Father Heart disease Hypertension Heart failure Mother Kidney disease Heart disease Cancer Surgical History History of lumpectomy of right breast History of lumbar laminectomy History of total replacement of both hip joints History of total bilateral knee replacement (TKR) Social History household members: spouse Smoking Status: Never smoker alcohol intake: never substance use type: does not use Objective Data Objective Data Vital Signs: Vital Signs Last response 3 Temperature 35.8 C L 04/27/25 06:33 Temperature Source Temporal 06/07/25 06:33 Pulse Rate 115 H 04/27/25 06:45 Respiratory Rate 20 H 04/27/25 06:45 Respiratory Effort Normal 04/27/25 07:30 Respiratory Depth Shallow 04/27/25 07:30 Respiratory Pattern Normal 04/27/25 07:30 Blood Pressure 105/81 H 04/27/25 06:45 Blood Pressure Mean 89 04/27/25 06:45 Blood Pressure Source Monitor 04/27/25 06:45 Blood Pressure Position Semi-Fowlers 04/27/25 06:45 Blood Pressure Location Right Arm 04/27/25 06:45 Pulse Ox 98 04/27/25 07:19 Oxygen Delivery Method Nasal Cannula 04/27/25 07:30 Oxygen Flow Rate (L/min) 2 04/27/25 07:30 Fraction of Inspired Oxygen (FIO2) 2 04/27/25 02:48 EtCo2 - Document during CPR and with ROSC 108 04/27/25 01:27 I&O: I&O Last 24 Hours 3 04/26/25 04/26/25 04/27/25 11:59 23:59 11:59 Intake Total 1215 / 1215 886 / 886 Output Total 5 / 5 Balance 1215 / 1215 881 / 881 I&O: Total Stay 3 04/26/25 20:36 thru 04/27/25 06:58 Intake Total 2101 Output Total 5 Balance 2095 Current Meds Ordered / Administered: Current meds ordered / Administered 3 Generic Name Dose Route Start Last Admin Trade Name Freq PRN Reason Stop Dose Admin Acetaminophen 650 mg 04/27/25 06:12 Acetaminophen 325 Mg Tablet PO Q4H PRN PRN Fever, pain 1-10 Al Hydroxide/Mg Hydroxide 30 ml 04/27/25 06:12 Mag Hydrox/Al Hydrox/Simeth 30 Ml Udc PO Q6H PRN PRN Gastric Burning Amiodarone HCl 200 mg 04/27/25 08:00 Amiodarone 200 Mg Tablet PO BIDCM [facility] Atorvastatin Calcium 10 mg 04/27/25 22:00 Atorvastatin Calcium 10 Mg Tablet PO QHS [facility] Calamine/Phenol 1 applic 04/27/25 10:00 Menthol/Lanolin/Calamine/Znox 113 Gm Tube TOPICAL 4X/DAY [facility] Protocol Gabapentin 300 mg 04/27/25 22:00 Gabapentin 300 Mg Capsule PO QHS SERG Glucagon 1 mg 04/27/25 06:12 Glucagon 1 Mg/Ml Syringe IM X1 PRN HYPOGLYCEMIA Protocol Guaifenesin 10 ml 04/27/25 06:12 Guaifenesin 10 Ml Udc (200mg/10ml) PO Q4H PRN PRN COUGH Pantoprazole Sodium 80 mg/ 100 mls @ 10 mls/hr 04/26/25 21:09 04/27/25 06:58 Sodium Chloride CONT INF 10 mls/hr Q10H SERG Administration Dextrose 250 mls @ 0 mls/hr 04/27/25 06:12 Dextrose 10%-Water IV .Q0M PRN HYPOGLYCEMIA Protocol As Directed Sodium Chloride 250 mls @ 15 mls/hr 04/27/25 06:13 IV .[id number] PRN Saline Flush Sodium Chloride 250 mls @ 15 mls/hr 04/27/25 06:13 IV .[id number] PRN Additional IVPB Infusion Insulin Human Lispro 0 unit 04/27/25 07:00 04/27/25 07:02 Insulin Lispro 100 Unit/Ml Insuln.Pen SC Not Given Q6H [facility] Protocol Levothyroxine Sodium 100 mcg 04/27/25 06:12 04/27/25 06:44 Levothyroxine 100 Mcg Tablet PO Not Given DAILY@0600 [facility] Ondansetron HCl 4 mg 04/27/25 06:12 Ondansetron 4 Mg/2 Ml Vial IV Q8H PRN PRN NAUSEA/VOMITING Prochlorperazine Edisylate 5 mg 04/27/25 06:12 Prochlorperazine 10 Mg/2 Ml Vial IV Q4H PRN PRN Breakthrough Nausea/Vomiting Sodium Chloride 10 - 40 ml 04/27/25 06:13 0.9% Saline Lock 10 Ml Syringe IV UD PRN SALINE FLUSH Lab / Micro Data 04/27/25 12:15 04/26/25 20:45 Labs: Laboratory Results - last 24 hr 04/26/25 20:45: WBC 13.7 H, RBC 2.56 L, Hgb 7.1 L, Hct 23.0 L, MCV 89.8, MCH 27.7, MCHC 30.9 L, RDW Std Deviation 53.1 H, RDW Coeff of Marcial 16.5 H, Plt Count 339, MPV 10.4, Immature Gran % (Auto) 1.700 H, Neut % (Auto) 80.5 H, Lymph % (Auto) 11.3 L, Berks % (Auto) 5.3, Eos % (Auto) 0.8, Baso % (Auto) 0.4, Absolute Neuts (auto) 11.1 H, Absolute Lymphs (auto) 1.55, Nucleated RBC % 0, PT 20.4 H, INR 1.7, APTT 31.6, Sodium 140, Potassium 4.6, Chloride 105, Carbon Dioxide 22.7, Anion Gap 12, BUN 55 H, Creatinine 1.39 H, Estim Creat Clear Calc 31.24 L,Est GFR (MDRD) Non-Af 37 L, BUN/Creatinine Ratio 39.6 H, Glucose 183 H, Calcium 8.4 04/26/25 21:11: Blood Type O POSITIVE, Antibody Screen NEGATIVE, Crossmatch See Detail 04/27/25 05:35: Hgb 8.3 L, Hct 25.4 L 04/27/25 06:57: POC Glucose 110 H Micro: Microbiology 04/27/25 06:38 Wound - Leg, Right Skin and Soft Tissue MRSA/MSSA (PCR - Final 04/26/25 21:08 Stool Stool Occult Blood (ANDREA) - Final Occult Blood Positive Assessment and Plan . Assessment and plan: Physical Exam: Gen - NAD, obese HEENT - MMM. Sclera anicteric Resp - CTAB. Breathing nonlabored CV - RRR. No m/g/r Abd - Soft, NT, ND Ext - No c/c. +LE edema Skin - No rashes? Neuro - Grossly nonfocal. Alert and oriented I have reviewed the pertinent vital sign, laboratory, and imaging data. ASSESSMENT: # Acute GI bleed - bloody diarrhea per pt. Reports receiving eliquis the day prior to onset of sx while still in hospital # Hypotension # Acute hypoxic respiratory failure # Afib w/ RVR - on amio/eliquis at home # HFpEF # R breast Ca s/p lumpectomy # Chronic lymphedema # CKD requiring prior temporary HD # HTN # DM with neuropathy # Chronic anemia PLAN: -On 2L NC, wean to keep sats > 90%. Repeat ABG/CXR if worsening -Monitor for recurrent hypotension -Cont PPI gtt. GI consulted, tentative plan for endoscopy today -Follow CBC, monitor for recurrent bleeding. s/p 2U pRBC and 1U PCC on admit. -Start IV amio gtt for now given worsening RVR. Can resume PO amio if remains stable after endoscopy -Monitor for worsening volume overload, may need some gentle diuresis if can tolerate -SQ insulin FEN/GI: NPO Proph DVT/GI: SCDs, PPI gtt Code status: DNR but OK with intubation Critical Care Time: 60 mins The entirety of this encounter was done via telemedicine using both audio and video. Consent was obtained. 04/27/252046 <Electronically signed by Migel Akins MD> Cosigner Signature (if applicable): CC: Ras Childress~ Signed [facility] Work Phone: 1(919) 658-905106-07-2025 Consult note Author Jayden Still [facility] Note Date/Time April 27, 2025 7:18p m [facility] Medical Records Department [address] [place] [id number] Consultation - GI 04/27/251909 MR#: [id number] Acct: [id number] Name: JESS JACKSON Rep #:[id number] : 1940 84 From: Jayden Still DO PCP: Ras Childress Status:ADM IN Location: ICU CVICU20 3-1 HPI Consult Data Date of Consult: 04/27/25 HPI Narrative Reason for Consultation: GI bleed HPI Narrative: JESS JACKSON, is a 84 F who presents with multiple episodes of lower GI bleeding and vomiting. She has a past medical history significant for paroxysmalA-fib on Eliquis who was recently discharged after being admitted for new onset right- sided pleural effusion, acute on chronic CHF and acute kidney injury. As per her grand daughter she was brought in by EMS increasing weakness. There wasnoted diarrhea states possibly bloody stools. She was recently discharged hospital 2 PM. She was in the hospital for 10 days per daughter. Also she was diagnosed with pneumonia which was treated with antibiotics had pleural effusion right side with thoracentesis x 2 last time was 4 days ago. When she came into the hospital on her last visit her hemoglobin was 12.4 and when she was DC'd from the hospital was 8.3. When she came back in the hospital she was noted to be hypotensive and tachycardic. She was given a reversal agent for Eliquis. Due to her hypotension she was also given 2 units of packed red blood cells. Her current hemoglobin is 7.9. She has not had any more bowel movements since completing a bowel prep. [facility] Medical History Diabetes Kidney disease Non-smoker Venous (peripheral) insufficiency Atrial fibrillation CHF (congestive heart failure) Venous stasis ulcer Hyperpigmentation of skin Lipodermatosclerosis of both lower extremities Right leg swelling Left leg swelling Varicose veins of lower extremity with inflammation, 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 Chronic venous insufficiency Generalized osteoarthrosis History of right breast cancer Cardiomegaly Home Medications ?Medication ?Instructions ?Recorded ?Last Taken ?Type gabapentin 300 mg capsule 300 mg PO QHS Neuropathy 09/0604/15/25 History (Neurontin) levothyroxine 100 mcg tablet 100 mcg PO DAILY thyroid 09/30/17 04/16/25 History lisinopril 40 mg tablet 40 mg PO DAILY blood pressur e 09/30/17 04/15/25 History metformin 500 mg 24 hr 500 mg PO BID diabetes 09/3004/16/25 History tablet,extended release (gastric retention) pentoxifylline 400 mg 1 tab PO TID circulation 09/0604/16/25 History tablet,extended release acetaminophen 500 mg tablet 1,000 mg PO QHS PRN pain 0 01/08/25 Unknown History (Acetaminophen Extra Strength) cetirizine 10 mg tablet (24Hour 10 mg PO DAILY PRN all ergy symptoms 01/08/25 Unknown History Allergy) diosmin complex no.1 630 mg tablet 1 tab PO DAILY 12/2204/15/25 History (Vasculera) dmdmlcvmyhbi-iuuptkjw-dhtyas 1 tab PO DAILY vitamin 04/16/25 History tablet (A Thru Z High Potency tablet) simvastatin 20 mg tablet 20 mg PO QHS cholesterol 04/15/25 History apixaban 5 mg tablet (Eliquis) 5 mg PO BID blood thinn er 90 days 01/23/25 04/16/25 Rx #180 tabs diltiazem HCl 240 mg 240 mg PO DAILY heart rate 3 01/23/25 04/16/25 Rx capsule,extended release 24 hr months #90 caps (Cardizem CD) metoprolol tartrate 50 mg tablet 50 mg PO BID blood pr essure 90 01/23/25 04/16/25 Rx days #180 tabs biotin 5,000 mcg sublingual tablet 5,000 mcg sublingua l DAILY 04/16/25 04/15/25 History supplement semaglutide 0.25 mg or 0.5 mg (2 0.5 mg subcut QWEEK d iabetes 04/16/25 Unknown History mg/1.5 mL) subcutaneous pen injector (Ozempic) amiodarone 200 mg tablet 200 mg PO BID #60 tabs 04/26 Unknown Rx guaifenesin 600 mg tablet, 600 mg PO BID #20 tabs 05/15 Unknown Rx extended release 12 hr (Mucinex) metolazone 5 mg tablet 5 mg PO DAILY #30 tabs 04/26 Unknown Rx Allergy/AdvReac Type Severity Reaction Status Date / Time enoxaparin (From Lovenox) Allergy Unknown Verified 04/26/25 21:15 oxycodone Allergy Unknown Verified 04/26/25 21:15 Penicillins (PCN) Allergy Unknown Verified 04/26/25 21:15 Family History Father Heart disease Hypertension Heart failure Mother Kidney disease Heart disease Cancer Surgical History History of lumpectomy of right breast History of lumbar laminectomy History of total replacement of both hip joints History of total bilateral knee replacement (TKR) Social History household members: spouse Smoking Status: Never smoker alcohol intake: never substance use type: does not use ROS Constitutional Constitutional: Denies fatigue, fever(s), poor appetite, weight gain or weight loss Gastrointestinal Gastrointestinal: Denies belching, bloating, change in bowel habits, change in stool character, chewing difficulty, coffee ground emesis, constipation, cramping, diarrhea, dyspepsia, dysphagia, early satiety, excessive flatus, fecalincontinence, heartburn, hematemesis, hematochezia, hemorrhoids, loose stools, melena, nausea, odynophagia, rectal bleeding, tenesmus, vomiting or weight changes Physical Exam Const alert, oriented x3, no apparent distress and healthy appearing General Appearance: cooperative GI normal to inspection, nondistended, normoactive bowel sounds, soft to palpation,non-tender and non-distended Percussion: normal to percussion Rectal Exam: deferred Lab / Micro Data 04/27/25 12:15 04/26/25 20:45 Labs: Laboratory Results - last 24 hr 04/26/25 20:45: WBC 13.7 H, RBC 2.56 L, Hgb 7.1 L, Hct 23.0 L, MCV 89.8, MCH 27.7, MCHC 30.9 L, RDW Std Deviation 53.1 H, RDW Coeff of Marcial 16.5 H, Plt Count 339, MPV 10.4, Immature Gran % (Auto) 1.700 H, Neut % (Auto) 80.5 H, Lymph % (Auto) 11.3 L, Berks % (Auto) 5.3, Eos % (Auto) 0.8, Baso % (Auto) 0.4, Absolute Neuts (auto) 11.1 H, Absolute Lymphs (auto) 1.55, Nucleated RBC % 0, PT 20.4 H, INR 1.7, APTT 31.6, Sodium 140, Potassium 4.6, Chloride 105, Carbon Dioxide 22.7, Anion Gap 12, BUN 55 H, Creatinine 1.39 H, Estim Creat Clear Calc 31.24 L,Est GFR (MDRD) Non-Af 37 L, BUN/Creatinine Ratio 39.6 H, Glucose 183 H, Calcium 8.4 04/26/25 21:11: Blood Type O POSITIVE, Antibody Screen NEGATIVE, Crossmatch See Detail 04/27/25 05:35: Hgb 8.3 L, Hct 25.4 L 04/27/25 06:57: POC Glucose 110 H 04/27/25 12:14: POC Glucose 133 H 04/27/25 12:15: Hgb 7.9 L, Hct 24.0 L 04/27/25 17:45: POC Glucose 107 H Micro: Microbiology 04/27/25 06:38 Wound - Leg, Right Skin and Soft Tissue MRSA/MSSA (PCR - Final 04/26/25 21:08 Stool Stool Occult Blood (ANDREA) - Final Occult Blood Positive Assessment & Plan Assessment/Plan (1) GI (gastrointestinal bleed): (2) Atrial fibrillation with RVR: PLAN: Plan 84 y/o F with acute GI bleed. She re-presents to the [facility] on 04/26/2025 with increasing weakness, malaise in addition to concern for bloody diarrhea with intermittent abdominal discomfort with no nausea or emesis and upon arrival patient noted to be significantly tachycardic in A-fib. She is status post reversal of anticoagulation. She will need to undergo an upper or lower endoscopy to evaluate her upper and lower GI tract. She was explained alternatives, risk, benefits including and not withstanding bleeding, infection, perforation, need for emergent urgent . She will have an ASA of3. Charges/Coding Visit Charges Inpatient E&M: 74809 Init Hosp L3 04/27/251917 <Electronically signed by Jayden Still DO> Cosigner Signature (if applicable): CC: Ras Childress~ Signed [facility] Work Phone: 1(589) 338-349106-07-2025 Progress note Author Ras Blas [facility] Note Date/Time April 27, 2025 1:35p m [facility] Medical Records Department [address] [place] [address] Progress Note - Hospitalist 04/27/25 0735 MR#: [id number] Acct: [id number] Name: MANUELJESS THOMSON Rep #:[id number] : 1940 84 From: Ras Blas DO PCP: Ras Childress Status:ADM IN Location: ICU CVICU20 3-1 Reason for Visit Reason for Visit: Diagnoses Unspecified atrial fibrillation (04/27/25) Gastrointestinal hemorrhage, unspecified (04/27/25) Subjective Subjective No further bleeding. Objective Data Objective Data Vital Signs: Vital Signs Temp Pulse Resp BP Pulse Ox O2 Del Method O2 Flow Rate 35.8 C L 115 H 20 H 105/81 H 98 Nasal Cannula 2 04/27/25 06:33 04/27/25 06:45 04/27/25 06:45 04/27/25 06:45 04/27/25 07:19 04/27/25 07:19 04/27/25 07:19 FiO2 2 04/27/25 02:48 Oxygen Flow Rate (L/min) 2 Oxygen Delivery Method Nasal Cannula Weight: 96.797 kg Body Mass Index (BMI) 40.3 Intake & Output: Intake and Output for Last 24 Hours 04/25/25 04/26/25 04/27/25 23:59 23:59 23:59 Intake Total 1214 / 5 886 / 886 Output Total Balance 1214 881 / 881 Lab / Micro Data 04/27/25 12:15 04/26/25 20:45 Labs: Laboratory Results - last 24 hr 04/26/25 20:45: WBC 13.7 H, RBC 2.56 L, Hgb 7.1 L, Hct 23.0 L, MCV 89.8, MCH 27.7, MCHC 30.9 L, RDW Std Deviation 53.1 H, RDW Coeff of Marcial 16.5 H, Plt Count 339, MPV 10.4, Immature Gran % (Auto) 1.700 H, Neut % (Auto) 80.5 H, Lymph % (Auto) 11.3 L, Berks % (Auto) 5.3, Eos % (Auto) 0.8, Baso % (Auto) 0.4, Absolute Neuts (auto) 11.1 H, Absolute Lymphs (auto) 1.55, Nucleated RBC % 0, PT 20.4 H, INR 1.7, APTT 31.6, Sodium 140, Potassium 4.6, Chloride 105, Carbon Dioxide 22.7, Anion Gap 12, BUN 55 H, Creatinine 1.39 H, Estim Creat Clear Calc 31.24 L,Est GFR (MDRD) Non-Af 37 L, BUN/Creatinine Ratio 39.6 H, Glucose 183 H, Calcium 8.4 04/26/25 21:11: Blood Type O POSITIVE, Antibody Screen NEGATIVE, Crossmatch See Detail 04/27/25 05:35: Hgb 8.3 L, Hct 25.4 L 04/27/25 06:57: POC Glucose 110 H Micro: Microbiology 04/26/25 21:08 Stool Stool Occult Blood (ANDREA) - Final Occult Blood Positive Physical Exam Const alert and no apparent distress HEENT head/scalp atraumatic and moist oral mucous membranes Resp normal respiratory effort, no retractions, no use of accessory muscles and clearto auscultation bilaterally Cardio regular rate, regular rhythm, S1 normal heart sound and S2 normal heart sound GI normal to inspection, nondistended, normoactive bowel sounds, soft to palpation,non-tender and non-distended Extremity normal to inspection and full ROM Assessment & Plan Assessment/Plan (1) Transient hypotension: PLAN: BP transiently down to 58/41, but has recovered. 2/2 ABLA + antihypertensives. Monitor. improved. Monitor (2) ABLA (acute blood loss anemia): PLAN: 2/2 GIB complicated by apixaban transfused 2 units PRBCs. Monitor (3) GI (gastrointestinal bleed): PLAN: on PPI gtt GI consult (4) Atrial fibrillation with RVR: PLAN: pAfib w RVR already on PO amio. Started on Amiodaron gtt. PLAN: Plan chronic conditions: * DM2: metformin held. SSI. * HFpEF: monitor for volume overload. * hypothyroidism: levothyroxine VTE prophylaxis: SCDs. DW family at bedside. Charges/Coding Visit Charges Inpatient E&M: 53472 Subs Hosp L2 04/27/25 1335 <Electronically signed by Ras Blas DO> Cosigner Signature (if applicable): CC: ~ Signed [facility] Work Phone: 1(375) 527-804306-07-2025 Discharge summary Author Sammy Guerrero [facility] Note Date/Time April 27, 2025 6:29a [facility] Medical Records Department [address] [place] [address] Emergency Department Summary 04/26/25 MR#: [id number] Acct: [id number] Name: JESS JACKSON Rep #:[id number] : 1940 84 From: Sammy Tineo PCP: Ras Childress Status:ADM IN Location: ICU CVICU20 3-[address] Levi Prakash MD on 04/27/25 at 0629 Patient was observed closely overnight. Bowel prep was going uneventfully, her vital signs remained stable, with minor activity she would become tachycardic, but then with rest slowed down to the low 100s, and since she never developed any worse tachycardia, I did not bolus her with any fluids. The blood pressuresremained stable. Clinically she did well. Repeat hemoglobin is a little higherfrom 7.1-8.3. She obtained an ICU bed sooner than expected, and was taken off of ED observation subsequently at 0548 on 04/27/2025. 04/27/25 0629<Electronically signed by Levi Prakash MD> Cosigner Signature (if applicable): cc: Ras Childress ~* Signed ADDENDUM by Dr. Levi Prakash MD on 04/27/25 at 0007 Patient turned over to me on dye reel operator helper in the emergency department. There areno available ICU beds partially due to staffing right now. Patient was given option by Dr. Guerrero for transfer versus staying here, they prefer to stay here, so we spoke with nursing wax room supervisor and they expect to have staff at 7 AM for the patient to be able to go to the ICU. Therefore I am comfortable continuing to care for her here in the emergency department. I coordinated with the hospitalist. I am going to obtain periodic repeat hemoglobins as the patient iscurrently on Protonix drip and getting a blood transfusion, GI wants stat prep initiated for upper and lower scopes, so we will start that and keep an eye on her vital signs and fluid status carefully, as she may require IV fluids due to the GI fluid losses, but at the same time we do not want to fluid overload her especially since she was just discharged after being admitted for congestive heart failure exacerbation. Given all of this patient was admitted to ED observation for reasons of unavailable inpatient bed at 2300 on 04/26/2025. 04/27/25 0007<Electronically signed by Levi Prakash MD> Cosigner Signature (if applicable): cc: Ras Childress ~* Signed HPI History of Present Illness Chief Complaint: Weakness Informant: patient and family Narrative Narrative: Here with daughter brought in by EMS increasing weakness. Noted diarrhea statespossibly bloody stools. Discharged hospital 2 PM. Was in the hospital for 10 days per daughter. Had pneumonia treated with antibiotics had pleural effusion right side with thoracentesis x 2 last time was 4 days ago. She states also wasin kidney failure due to her Lasix however creatinine improved upon discharge today. She was placed on metolazone due to Lasix not working. This is reportedby daughter. She is on Eliquis since December for A-fib. She was having intermittent abdominal pain for last few days while in the hospital. None currently. No vomiting. On arrival blood pressure 60s heart rate 110s. She was pale. She has not had any upper endoscopy in the past. She has not had any blood transfusions per daughter. Reports history of heart failure. Prior similar symptoms: No PFSH PFSH Medical History Diabetes Kidney disease Non-smoker Venous (peripheral) insufficiency Atrial fibrillation CHF (congestive heart failure) Venous stasis ulcer Hyperpigmentation of skin Lipodermatosclerosis of both lower extremities Right leg swelling Left leg swelling Varicose veins of lower extremity with inflammation, 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 Chronic venous insufficiency Generalized osteoarthrosis History of right breast cancer Cardiomegaly Home Medications ?Medication ?Instructions ?Recorded ?Last Taken ?Type gabapentin 300 mg capsule 300 mg PO QHS Neuropathy 09/0604/15/25 History (Neurontin) levothyroxine 100 mcg tablet 100 mcg PO DAILY thyroid 09/30/17 04/16/25 History lisinopril 40 mg tablet 40 mg PO DAILY blood pressur e 09/30/17 04/15/25 History metformin 500 mg 24 hr 500 mg PO BID diabetes 09/3004/16/25 History tablet,extended release (gastric retention) pentoxifylline 400 mg 1 tab PO TID circulation 09/0604/16/25 History tablet,extended release acetaminophen 500 mg tablet 1,000 mg PO QHS PRN pain 0 01/08/25 Unknown History (Acetaminophen Extra Strength) cetirizine 10 mg tablet (24Hour 10 mg PO DAILY PRN all ergy symptoms 01/08/25 Unknown History Allergy) diosmin complex no.1 630 mg tablet 1 tab PO DAILY 12/2204/15/25 History (Vasculera) bmtnwegjvnqm-pgtvxsrz-jmtwxt 1 tab PO DAILY vitamin 04/16/25 History tablet (A Thru Z High Potency tablet) simvastatin 20 mg tablet 20 mg PO QHS cholesterol 04/15/25 History apixaban 5 mg tablet (Eliquis) 5 mg PO BID blood thinn er 90 days 01/23/25 04/16/25 Rx #180 tabs diltiazem HCl 240 mg 240 mg PO DAILY heart rate 3 01/23/25 04/16/25 Rx capsule,extended release 24 hr months #90 caps (Cardizem CD) metoprolol tartrate 50 mg tablet 50 mg PO BID blood pr essure 90 01/23/25 04/16/25 Rx days #180 tabs biotin 5,000 mcg sublingual tablet 5,000 mcg sublingua l DAILY 04/16/25 04/15/25 History supplement semaglutide 0.25 mg or 0.5 mg (2 0.5 mg subcut QWEEK d iabetes 04/16/25 Unknown History mg/1.5 mL) subcutaneous pen injector (Ozempic) amiodarone 200 mg tablet 200 mg PO BID #60 tabs 04/26 Unknown Rx guaifenesin 600 mg tablet, 600 mg PO BID #20 tabs 05/15 Unknown Rx extended release 12 hr (Mucinex) metolazone 5 mg tablet 5 mg PO DAILY #30 tabs 04/26 Unknown Rx Allergy/AdvReac Type Severity Reaction Status Date / Time enoxaparin (From Lovenox) Allergy Unknown Verified 04/26/25 21:15 oxycodone Allergy Unknown Verified 04/26/25 21:15 Penicillins (PCN) Allergy Unknown Verified 04/26/25 21:15 Family History Other Heart disease Surgical History History of lumpectomy of right breast History of lumbar laminectomy History of total replacement of both hip joints History of total bilateral knee replacement (TKR) Social History Smoking Status: Never smoker ROS ROS ED Constitutional Constitutional ED: Denies chills, fever(s) or sweats ENT ENT ED: Denies sore throat Cardiovascular Cardiovascular: Denies chest pain, leg edema, palpitations or racing heartbeat Respiratory/Chest Respiratory/Chest: Denies cough, dyspnea or dyspnea on exertion Gastrointestinal Gastrointestinal: Reports diarrhea; Denies abdominal pain, nausea or vomiting Genitourinary Genitourinary ED: Denies dysuria, hematuria or urinary frequency Musculoskeletal Musculoskeletal: Denies back pain, extremity pain or neck pain Integumentary Denies rash or wounds Neurologic Neurologic: Reports weakness; Denies headache(s) or paresthesias EXAM Physical Exam Const Vital Signs: 04/26/25 20:38 04/26/25 21:16 04/26/25 21:30 Temperature 98.9 F Temperature Source Temporal Pulse Rate 115 H 128 H 130 H Respiratory Rate 18 26 H 18 Blood Pressure 58/41 L 95/57 L 107/72 Blood Pressure Mean 46 69 83 Blood Pressure Source Blood Pressure Position Blood Pressure Location Pulse Ox 97 100 Oxygen Delivery Method Room Air Room Air 04/26/25 21:42 04/26/25 22:00 04/26/25 22:00 Temperature 98.1 F 98.1 F Temperature Source Oral Oral Pulse Rate 123 H 121 H 125 H Respiratory Rate 20 H 30 H 20 H Blood Pressure 100/64 108/86 H 100/68 Blood Pressure Mean 76 93 78 Blood Pressure Source Blood Pressure Position Blood Pressure Location Pulse Ox 100 100 100 Oxygen Delivery Method Room Air Room Air Room Air 04/26/25 22:30 04/26/25 22:59 04/26/25 23:00 Temperature 98.2 F 98.4 F Temperature Source Oral Pulse Rate 115 H 130 H 120 H Respiratory Rate 16 30 H 26 H Blood Pressure 104/54 L 108/86 H 107/68 Blood Pressure Mean 70 93 81 Blood Pressure Source Blood Pressure Position Blood Pressure Location Pulse Ox 97 100 100 Oxygen Delivery Method Room Air 04/26/25 23:00 04/26/25 23:12 04/26/25 23:27 Temperature 98.4 F 97.7 F L Temperature Source Temporal Oral Pulse Rate 121 H 114 H Respiratory Rate 24 H 30 H Blood Pressure 107/68 104/66 102/69 Blood Pressure Mean 81 78 80 Blood Pressure Source Monitor Monitor Blood Pressure Position Supine Supine Blood Pressure Location Right Arm Left Arm Pulse Ox 100 100 Oxygen Delivery Method Room Air Room Air Positive well nourished and well developed General Appearance ED: well developed, NAD and pallor HEENT Reports moist mucous membranes normocephalic and atraumatic Eyes General Eye ED: Yes pale conjunctiva Neck full ROM Chest Wall Chest: Negative for tenderness Resp normal respiratory effort and normal air movement Effort and Inspection: symmetric chest movement; Negative for respiratory distress Cardio regular rate, regular rhythm and no murmurs Peripheral Pulses: pulses 2+ throughout GI normal to inspection, nondistended, normoactive bowel sounds and non-tender Palpation: Negative for guarding or rebound tenderness present Extremity normal to inspection General Extremety ED: Negative for edema or tenderness General Extremity: Negative for edema Neuro oriented x3 and no sensory deficits noted Sensorium / Orientation: awake and alert Skin General Skin Exam: pallor MDM MDM MDM Narrative Medical decision making narrative: Interventions / MDM: Differential diagnosis: Upper GI bleed, melanotic stools, transient hypotension,chronic anticoagulation, atrial fibrillation Diagnosis considered but do not suspect: N/A My EKG interpretation: Atrial fibrillation rate 122, right bundle branch block, no ST changes, T wave inversions inferior leads. Similar to April 16, 2025. Imaging independently reviewed and interpreted by myself: N/A External documents reviewed: Echocardiogram April 16, 2025 EF of 55%. Labs from hemoglobin was trending down from 10-8.4 on discharge today. Test considered but not ordered:N/A ED course: Presenting pressure of 58/41 pulse of 115. She was pale on exam. She is on the commode had a melanotic bowel movement liquid. Nontender abdomen. She does not drink alcohol. Fluids were started. Type and cross for 2 units of blood. She is on Eliquis with her hypotension I did order for Kcentra. EKG labs ordered. 2149: Hemoglobin returned at 7.1. Blood pressure 95/57 heart rate 120s. EKG with A-fib. 0: Blood pressure improving fluids blood is ready to be infused. Heart rate 120s A-fib. I did speak with GI Dr. Still who is aware. Agrees with blood transfusion Protonix drip. Will keep her n.p.o. Will discuss with hospitalist for admission. I discussed with hospitalist Dr. Abel for admission to ICU. Re-evaluation: stable Disposition discussed with patient/family/significant other: Patient and daughter Case discussed with consulting clinician: Gastroenterology, hospitalist This note was generated with [employer] dictation software. It may contain incorrectwords, spelling, and punctuation that were not noted in checking the note beforesigning. Lab Data Attestation: I reviewed the patient's lab results. Labs: Laboratory Results - last 24 hr 04/26/25 04/26/25 20:45 21:11 WBC 13.7 H RBC 2.56 L Hgb 7.1 L Hct 23.0 L MCV 89.8 MCH 27.7 MCHC 30.9 L RDW Std Deviation 53.1 H RDW Coeff of Marcial 16.5 H Plt Count 339 MPV 10.4 Immature Gran % (Auto) 1.700 H Neut % (Auto) 80.5 H Lymph % (Auto) 11.3 L Berks % (Auto) 5.3 Eos % (Auto) 0.8 Baso % (Auto) 0.4 Absolute Neuts (auto) 11.1 H Absolute Lymphs (auto) 1.55 Nucleated RBC % 0 PT 20.4 H INR 1.7 APTT 31.6 Sodium 140 Potassium 4.6 Chloride 105 Carbon Dioxide 22.7 Anion Gap 12 BUN 55 H Creatinine 1.39 H Estim Creat Clear Calc 31.24 L Est GFR (MDRD) Non-Af 37 L BUN/Creatinine Ratio 39.6 H Glucose 183 H Calcium 8.4 Blood Type O POSITIVE Antibody Screen NEGATIVE Crossmatch See Detail Critical Care Time Critical Care Time: Yes Critical care time (excluding procedures): 30-74 minutes, Discussing w/Patient &/or Family/Platform Power Technician, Discussing w/Consultants, Arranging Admission or Transfer, Performing Direct Patient Care at Bedside and - (40 minutes) Discharge Plan Dx/Rx/DC Orders Clinical Impression: GI (gastrointestinal bleed), Atrial fibrillation with RVR, Melanotic stools, Chronic anticoagulation, Transient hypotension Disposition Disposition: Acute Care Hospital [facility] What to do if you have Problems For any increased pain, shortness of breath, bleeding, nausea or vomiting, chestpain, or any unexpected problems, contact your Primary Care Provider. Call [facility] ([phone]) or report to the closest Emergency Room. Call 911 if necessary. 04/26/25 0361 <Electronically signed by Sammy Tineo> Cosigner Signature (if applicable): CC: Ras Childress ~ Signed [facility] Work Phone: 1([phone] 321-790006-07-2025 History and physical note Author Dayana Abel [facility] Note Date/Time April 27, 2025 2:08a m [facility] Medical Records Department [address] [place] [address] H&P Exam - Hospitalist 04/27/25 0156 MR#: [id number] Acct: [id number] Name: JESS JACKSON Rep #:[id number] : 1940 84 From: Dayana Abel MD PCP: Ras Childress Status:REG ER Location: ED HPI - General General Date of Admission: 04/27/25 Date of Service: 04/27/25 Chief Complaint: Abdominal cramping, fatigue, malaise, weakness, bloody stools. HPI Narrative The patient is an 84 y/o F w/ PMHx: Hx R sided breast CA unclear type status post right breast lumpectomy considered on admission, BL LE venous stasis disease/insufficiency/chronic lymphedema, PAF, Chronic normocytic anemia, CKD stage III unclear subtype per GFR trending, HFpEF, HTN, HLD, Hypothyroidism, Diabetes mellitus type II with chronic neuropathy, recent prolonged admission 04/16/2025-04/26/2025 with evaluation and treatment of acute kidney injury requiring temporary dialysis catheter, PAF with RVR, heart failure exacerbation with recurrent pleural effusion with echo with EF 55 to 60% with severe biatrialenlargement with initial attempts for diuresis however patient was not responsive to Lasix drip with onset of hypotension transition to Zaroxolyn with during admission significant large right pleural effusion with thoracentesis 04/19/2025 as well as paracentesis unfortunately with reaccumulation with repeat thoracentesis 04/23/2025 with fluid consistent with transudate, initial creatinineupon presentation 2.31 with kidney function worsening with diuresis bumping up to 2.62 with nephrology involvement and ultrasound obtained and given significant underlying heart failure presentation unfortunately patient did require temporary dialysis with improvement of creatinine at time of discharge to 1.15 with ongoing nephrology involvement, usage of Cardizem drip for PAF withRVR eventually requiring amiodarone drip with bolus and eventual switch from IV to oral amiodarone treated in addition to these items for suspected Klebsiella pneumonia completing antibiotic therapy discharged on new regimen of metolazone who now re-presents to the [facility] ED on 04/26/2025 with increasing weakness, malaise in addition to concern for bloody diarrhea with intermittent abdominal discomfort only 1 episode of nausea with emesis noted to be clear liquids and upon arrival patient noted to be significantly tachycardic in A-fib. Patient does report abdominal cramping worse in the left upper and lower abdomen. She denies any chest pain, lightheadedness or dizziness. Workupin the ED included T98.9, heart rate 115, BP initially 58/41, respiratory rate 18, 97% on room air with most recent repeat vitals heart rate 125, BP 100/68, respiratory rate 20, 100% on room air, CBC with WBC 13.7, hemoglobin 7.1, MCV 89.8, platelets 239 with left shift, coags with PT 20.4 otherwise unremarkable, BMP with BUN/55/1.39, GFR 37, glucose 183. In the ED patient ministered pantoprazole bolus and initiated on drip as well as human prothrombin complex and 1 L normal saline. In addition type and cross for 2 units initiated per ED physician. In the ED patient with dark red/tarry stools persistently, loose perdiscussion with ED staff. [facility] Medical History Diabetes Kidney disease Non-smoker Venous (peripheral) insufficiency Atrial fibrillation CHF (congestive heart failure) Venous stasis ulcer Hyperpigmentation of skin Lipodermatosclerosis of both lower extremities Right leg swelling Left leg swelling Varicose veins of lower extremity with inflammation, 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 Chronic venous insufficiency Generalized osteoarthrosis History of right breast cancer Cardiomegaly Home Medications ?Medication ?Instructions ?Recorded ?Last Taken ?Type gabapentin 300 mg capsule 300 mg PO QHS Neuropathy 09/0604/15/25 History (Neurontin) levothyroxine 100 mcg tablet 100 mcg PO DAILY thyroid 09/30/17 04/16/25 History lisinopril 40 mg tablet 40 mg PO DAILY blood pressur e 09/30/17 04/15/25 History metformin 500 mg 24 hr 500 mg PO BID diabetes 09/3004/16/25 History tablet,extended release (gastric retention) pentoxifylline 400 mg 1 tab PO TID circulation 09/0604/16/25 History tablet,extended release acetaminophen 500 mg tablet 1,000 mg PO QHS PRN pain 0 01/08/25 Unknown History (Acetaminophen Extra Strength) cetirizine 10 mg tablet (24Hour 10 mg PO DAILY PRN all ergy symptoms 01/08/25 Unknown History Allergy) diosmin complex no.1 630 mg tablet 1 tab PO DAILY 12/2204/15/25 History (Vasculera) jzwdgejksdyr-yxvsbupk-quzqtj 1 tab PO DAILY vitamin 04/16/25 History tablet (A Thru Z High Potency tablet) simvastatin 20 mg tablet 20 mg PO QHS cholesterol 04/15/25 History apixaban 5 mg tablet (Eliquis) 5 mg PO BID blood thinn er 90 days 01/23/25 04/16/25 Rx #180 tabs diltiazem HCl 240 mg 240 mg PO DAILY heart rate 3 01/23/25 04/16/25 Rx capsule,extended release 24 hr months #90 caps (Cardizem CD) metoprolol tartrate 50 mg tablet 50 mg PO BID blood pr essure 90 01/23/25 04/16/25 Rx days #180 tabs biotin 5,000 mcg sublingual tablet 5,000 mcg sublingua l DAILY 04/16/25 04/15/25 History supplement semaglutide 0.25 mg or 0.5 mg (2 0.5 mg subcut QWEEK d iabetes 04/16/25 Unknown History mg/1.5 mL) subcutaneous pen injector (Ozempic) amiodarone 200 mg tablet 200 mg PO BID #60 tabs 04/26 Unknown Rx guaifenesin 600 mg tablet, 600 mg PO BID #20 tabs 05/15 Unknown Rx extended release 12 hr (Mucinex) metolazone 5 mg tablet 5 mg PO DAILY #30 tabs 04/26 Unknown Rx Allergy/AdvReac Type Severity Reaction Status Date / Time enoxaparin (From Lovenox) Allergy Unknown Verified 04/26/25 21:15 oxycodone Allergy Unknown Verified 04/26/25 21:15 Penicillins (PCN) Allergy Unknown Verified 04/26/25 21:15 Family History (Updated 04/27/25 @ 01:[address] Dayana Abel MD) Father Heart disease Hypertension Heart failure Mother Kidney disease Heart disease Cancer Surgical History History of lumpectomy of right breast History of lumbar laminectomy History of total replacement of both hip joints History of total bilateral knee replacement (TKR) Social History (Updated 04/27/25 @ 01:[address] Dayana Abel MD) household members: spouse Smoking Status: Never smoker alcohol intake: never substance use type: does not use ROS ROS Narrative Admission Review of Systems: CONSTITUTIONAL: No weight loss, fever, chills, + weakness or fatigue. HEENT: Eyes: No visual loss, blurred vision, double vision or yellow sclerae. Ears, Nose, Throat: No hearing loss, sneezing, congestion, runny nose or sore throat. SKIN: No rash or itching, lesions, wounds except notable chronic bilateral lowerextremity venous stasis skin changes, occasional stage ecchymoses, abrasion, pale appearing. CARDIOVASCULAR: No chest pain, chest pressure or chest discomfort, palpitations,edema, orthopnea, syncopal events. RESPIRATORY: No shortness of breath, cough or sputum, wheezing, hemoptysis. GASTROINTESTINAL: + Decreased appetite, abdominal cramping, dark red and tarry appearing stools, diarrhea, nausea, emesis times 1 noted to be clear liquids. GENITOURINARY: No dysuria, frequency, urgency or retention. NEUROLOGICAL: No headache, dizziness, syncope, paralysis, ataxia, numbness or tingling in the extremities, focal weakness, change in bowel or bladder control,seizure. MUSCULOSKELETAL: + muscle, back pain, joint pain or stiffness. HEMATOLOGIC: + Acute on chronic anemia, active bleeding is noted, easy bleeding/bruising. LYMPHATICS: No enlarged nodes. No history of splenectomy. PSYCHIATRIC: No history of depression or anxiety. ENDOCRINOLOGIC: No reports of sweating, cold or heat intolerance. No polyuria orpolydipsia. ALLERGIES: + History of allergic rhinitis. Vital Signs Vital Signs Vital Signs: 04/26/25 20:38 04/26/25 21:16 04/26/25 21:30 Temperature 98.9 F Temperature Source Temporal Pulse Rate 115 H 128 H 130 H Respiratory Rate 18 26 H 18 Blood Pressure 58/41 L 95/57 L 107/72 Blood Pressure Mean 46 69 83 Pulse Ox 97 100 Oxygen Delivery Method Room Air Room Air 04/26/25 22:00 04/26/25 22:30 Temperature Temperature Source Pulse Rate 125 H 115 H Respiratory Rate 20 H 16 Blood Pressure 100/68 104/54 L Blood Pressure Mean 78 70 Pulse Ox 100 97 Oxygen Delivery Method Room Air Weight Weight: 210 lb 8.663 oz Body Mass Index (BMI) 39.7 Physical Exam Narrative Physical Examination: General: Awake, alert, oriented x 3 and cooperative, laying in ED bed, fatigued appearing, blood being initiated now. Skin: Pale color, normal turgor, no icterus, no cyanosis, occasional stage ecchymoses likely from recent hospitalization with lab draws in addition to significant bilateral lower extremity venous stasis skin changes. HEENT: AT/NC, EOMI, PERRLA, moderately dry MM, no carotid bruits or JVD noted. Lungs: Mildly diminished, greater bases, mildly increased respiratory rate without distress, no r markedly appreciated ales, ronchi or wheezing. Heart: Irregular irregular; no gallop, rub audible. Abdomen: Soft, mild generalized discomfort palpation but no rebound or guarding,no marked distention, hyperactive BS, no appreciated HSM. Extremities: No cyanosis, no clubbing, significant pedal to knee 2+ chronic edema, notable venous stasis skin changes. Neurological: Patient awake, alert, oriented as noted, cognitive function intact; pupils equally reactive to light and accommodation, cranial nerves grossnormal, moving all 4 extremities, no focal deficits, strength severely globally decreased Psychiatric: Affect appears flat, fatigued, no acute evidence of depressive or anxiety feelings. Results Lab / Micro Data 04/26/25 20:45 04/26/25 20:45 Labs: Laboratory Results - last 24 hr 04/26/25 20:45: WBC 13.7 H, RBC 2.56 L, Hgb 7.1 L, Hct 23.0 L, MCV 89.8, MCH 27.7, MCHC 30.9 L, RDW Std Deviation 53.1 H, RDW Coeff of Marcial 16.5 H, Plt Count 339, MPV 10.4, Immature Gran % (Auto) 1.700 H, Neut % (Auto) 80.5 H, Lymph % (Auto) 11.3 L, Berks % (Auto) 5.3, Eos % (Auto) 0.8, Baso % (Auto) 0.4, Absolute Neuts (auto) 11.1 H, Absolute Lymphs (auto) 1.55, Nucleated RBC % 0, PT 20.4 H, INR 1.7, APTT 31.6, Sodium 140, Potassium 4.6, Chloride 105, Carbon Dioxide 22.7, Anion Gap 12, BUN 55 H, Creatinine 1.39 H, Estim Creat Clear Calc 31.24 L,Est GFR (MDRD) Non-Af 37 L, BUN/Creatinine Ratio 39.6 H, Glucose 183 H, Calcium 8.4 04/26/25 21:11: Blood Type O POSITIVE, Antibody Screen NEGATIVE, Crossmatch See Detail Micro: Microbiology 04/26/25 21:08 Stool Stool Occult Blood (ANDREA) - Final Occult Blood Positive Assessment & Plan Assessment/Plan (1) GI (gastrointestinal bleed): (2) Atrial fibrillation with RVR: PLAN: Plan The patient is an 84 y/o F w/ PMHx: Hx R sided breast CA unclear type status post right breast lumpectomy considered on admission, BL LE venous stasis disease/insufficiency/chronic lymphedema, PAF, Chronic normocytic anemia, CKD stage III unclear subtype per GFR trending, HFpEF, HTN, HLD, Hypothyroidism, Diabetes mellitus type II with chronic neuropathy, recent prolonged admission 04/16/2025-04/26/2025 with FERMÍN on CKD with temporary dialysis, PAF with RVR, heart failure exacerbation with serial thoracenteses secondary to recurrent pleural effusions with difficulty with rate control with RVR who now re-presents to the [facility] ED on 04/26/2025 with increasing weakness, malaise in addition to concern for bloody diarrhea with intermittent abdominal discomfort with no nausea or emesis and upon arrival patient noted to be significantly tachycardic in A-fib. #1. Transient Severe Hypotension, improving with IV fluids secondary to Acute Upper GI bleed with acute blood loss anemia on chronic anemia/normocytic anemia:Hemoglobin 04/24/25 Hgb 10.3-> 04/25/25 Hgb 9.9-> 04/26/25 Hgb8.4-> current presentation 04/26/25 20:40 repeat hemoglobin 7.1. Will admit to the ICU, will judiciously hydrate only if needed given recent HFpEF exacerbation and planned PRBC administration, monitor for overload as may require intermittent pulse IV lasix if BP appropriate although patient seems not to respond as well thus couldconsider her oral metaxalone, recieved prothrombin complex in the ED, continue to cycle H&H's, will continue Protonix infusion, per discussion with gastroenterology Dr. Still who is consulted and will follow plan for endoscopy with need for initiation of bowel prep to be started now, consumer marketing analyst will be consulted per protocol given planned admission to the unit, maintain on fall precautions. #2. Paroxysmal atrial fibrillation w/ RVR: EKG in ED w/ atrial fibrillation w/ RVR. Patient administered initially 1 L normal saline in ED. unfortunately need to be careful about volume of hydration given recent heart failure exacerbation and plan PRBC administration, as noted above may need to pulse dose Lasix, givenpatient presentation with acute blood loss anemia volume status may be a big part of patient RVR as patient has improved somewhat with fluids, continue patient amiodarone regimen with dose now, as BP allows will reinitiate patient ametoprolol and diltiazem, discontinued NOAC given current presentation. #3. Recent Acute on Chronic HFpEF Exacerbation, resolved: Notable recent presentation, issues with diuresis attempts as patient's renal function worsenedwith Lasix and was not responsive transitioned eventually to metolazone, given current presentation holding NOAC, continue statin, holding all hypertensive regimen until BP improves ideally following PRBC ministration given #1, given 1 L normal saline in the ED and PRBC thus will continue to closely monitor for overload given predisposition. May need to diurese as BP allows. #4. Recent FERMÍN on CKD stage III unclear subtype per GFR trending, resolved: Admission BUN/creatinine 55/1.39, GFR 37, baseline creatinine primarily 1.0-1.3,stable, continue to trend. #5. Hx R sided breast CA: Patient with unclear type status post right breast lumpectomy considered on admission. #6. BL LE venous stasis disease/insufficiency/chronic lymphedema: Will place neck emilie wraps with lower extremity elevation. #7. Hypertension: Will temporarily hold hypertensive regimen, ideally would preferentially use patient rate agents given PAF with RVR. #8. Hyperlipidemia: Will continue patient on statin therapy. #9. Diabetes mellitus type II with chronic neuropathy: Hold oral home regimen, currently n.p.o. status, continue accu checks w/ ISS, continue gabapentin as vitals allow. #10. Hypothyroidism: Will continue patient on levothyroxine regimen. #11. DVT prophylaxis: SCDs. #12. CODE status: Patient Healthcare power of deputy county attorney living will not in placebut she notes her and daughter who is present would be her medical decision makers if necessary. Discussed CODE status at length including difference between FULL code, DNR-CCA and DNR-CC status. Following discussions about the differences in these status, requested DNR CCA with allowance of intubation short-term only with examples discussed. Initially following discussions with daughter and patient status changed to full code but following discussion of likely outcome status given age and underlying comorbidities patient transition back to DNR-CCA as noted. Advanced Care Planning Face to Face Time: 16 minutes. Charges/Coding Visit Charges Inpatient E&M: 38158 Init Hosp L3 Procedures Hospitalists Procedures: 73014 Advncd Care Plan 30 Min 04/27/25 0156 <Electronically signed by Dayana Abel MD> Cosigner Signature (if applicable): CC: Dr. Dayana Abel MD; Ras Childress~ Signed ADDENDUM by Dr. Dayana Abel MD on 04/27/25 at 0208 Addendum Patient admission held and patient remained in the ED as awaiting staff for ICU admission. Discussed patient with ED physician and he will initiate appropriateorders while patient remains in the ED including bowel prep per Dr. Still request. Once staff are available patient will be transition to the ICU for admission. 04/27/25 0208<Electronically signed by Dayana Abel MD> Cosigner Signature (if applicable): cc: Dr. Dayana Abel MD; Ras Childress ~* Signed [facility] Work Phone: 1(555) 793-400606-07-2025 History and physical note Author Dayana [facility] Note Date/Time April 27, 2025 2:08a m [facility] Medical Records Department [address] [place] [address] H&P Exam - Hospitalist 04/27/256 MR#: [id number] Acct: [id number] Name: JESS JACKSON Rep #:[id number] : 1940 84 From: Dayana Abel MD PCP: Ras Childress Status:REG ER Location: ED HPI - General General Date of Admission: 04/27/25 Date of Service: 04/27/25 Chief Complaint: Abdominal cramping, fatigue, malaise, weakness, bloody stools. HPI Narrative The patient is an 84 y/o F w/ PMHx: Hx R sided breast CA unclear type status post right breast lumpectomy considered on admission, BL LE venous stasis disease/insufficiency/chronic lymphedema, PAF, Chronic normocytic anemia, CKD stage III unclear subtype per GFR trending, HFpEF, HTN, HLD, Hypothyroidism, Diabetes mellitus type II with chronic neuropathy, recent prolonged admission 04/16/2025-04/26/2025 with evaluation and treatment of acute kidney injury requiring temporary dialysis catheter, PAF with RVR, heart failure exacerbation with recurrent pleural effusion with echo with EF 55 to 60% with severe biatrialenlargement with initial attempts for diuresis however patient was not responsive to Lasix drip with onset of hypotension transition to Zaroxolyn with during admission significant large right pleural effusion with thoracentesis 04/19/2025 as well as paracentesis unfortunately with reaccumulation with repeat thoracentesis 04/23/2025 with fluid consistent with transudate, initial creatinineupon presentation 2.31 with kidney function worsening with diuresis bumping up to 2.62 with nephrology involvement and ultrasound obtained and given significant underlying heart failure presentation unfortunately patient did require temporary dialysis with improvement of creatinine at time of discharge to 1.15 with ongoing nephrology involvement, usage of Cardizem drip for PAF withRVR eventually requiring amiodarone drip with bolus and eventual switch from IV to oral amiodarone treated in addition to these items for suspected Klebsiella pneumonia completing antibiotic therapy discharged on new regimen of metolazone who now re-presents to the [facility] ED on 04/26/2025 with increasing weakness, malaise in addition to concern for bloody diarrhea with intermittent abdominal discomfort only 1 episode of nausea with emesis noted to be clear liquids and upon arrival patient noted to be significantly tachycardic in A-fib. Patient does report abdominal cramping worse in the left upper and lower abdomen. She denies any chest pain, lightheadedness or dizziness. Workupin the ED included T98.9, heart rate 115, BP initially 58/41, respiratory rate 18, 97% on room air with most recent repeat vitals heart rate 125, BP 100/68, respiratory rate 20, 100% on room air, CBC with WBC 13.7, hemoglobin 7.1, MCV 89.8, platelets 239 with left shift, coags with PT 20.4 otherwise unremarkable, BMP with BUN/55/1.39, GFR 37, glucose 183. In the ED patient ministered pantoprazole bolus and initiated on drip as well as human prothrombin complex and 1 L normal saline. In addition type and cross for 2 units initiated per ED physician. In the ED patient with dark red/tarry stools persistently, loose perdiscussion with ED staff. [facility] Medical History Diabetes Kidney disease Non-smoker Venous (peripheral) insufficiency Atrial fibrillation CHF (congestive heart failure) Venous stasis ulcer Hyperpigmentation of skin Lipodermatosclerosis of both lower extremities Right leg swelling Left leg swelling Varicose veins of lower extremity with inflammation, 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 Chronic venous insufficiency Generalized osteoarthrosis History of right breast cancer Cardiomegaly Home Medications ?Medication ?Instructions ?Recorded ?Last Taken ?Type gabapentin 300 mg capsule 300 mg PO QHS Neuropathy 09/0604/15/25 History (Neurontin) levothyroxine 100 mcg tablet 100 mcg PO DAILY thyroid 09/30/17 04/16/25 History lisinopril 40 mg tablet 40 mg PO DAILY blood pressur e 09/30/17 04/15/25 History metformin 500 mg 24 hr 500 mg PO BID diabetes 09/3004/16/25 History tablet,extended release (gastric retention) pentoxifylline 400 mg 1 tab PO TID circulation 09/0604/16/25 History tablet,extended release acetaminophen 500 mg tablet 1,000 mg PO QHS PRN pain 0 01/08/25 Unknown History (Acetaminophen Extra Strength) cetirizine 10 mg tablet (24Hour 10 mg PO DAILY PRN all ergy symptoms 01/08/25 Unknown History Allergy) diosmin complex no.1 630 mg tablet 1 tab PO DAILY 12/2204/15/25 History (Vasculera) jqvrhqgomckm-xnwfucrt-xwpgfi 1 tab PO DAILY vitamin 04/16/25 History tablet (A Thru Z High Potency tablet) simvastatin 20 mg tablet 20 mg PO QHS cholesterol 04/15/25 History apixaban 5 mg tablet (Eliquis) 5 mg PO BID blood thinn er 90 days 01/23/25 04/16/25 Rx #180 tabs diltiazem HCl 240 mg 240 mg PO DAILY heart rate 3 01/23/25 04/16/25 Rx capsule,extended release 24 hr months #90 caps (Cardizem CD) metoprolol tartrate 50 mg tablet 50 mg PO BID blood pr essure 90 01/23/25 04/16/25 Rx days #180 tabs biotin 5,000 mcg sublingual tablet 5,000 mcg sublingua l DAILY 04/16/25 04/15/25 History supplement semaglutide 0.25 mg or 0.5 mg (2 0.5 mg subcut QWEEK d iabetes 04/16/25 Unknown History mg/1.5 mL) subcutaneous pen injector (Ozempic) amiodarone 200 mg tablet 200 mg PO BID #60 tabs 04/26 Unknown Rx guaifenesin 600 mg tablet, 600 mg PO BID #20 tabs 05/15 Unknown Rx extended release 12 hr (Mucinex) metolazone 5 mg tablet 5 mg PO DAILY #30 tabs 04/26 Unknown Rx Allergy/AdvReac Type Severity Reaction Status Date / Time enoxaparin (From Lovenox) Allergy Unknown Verified 04/26/25 21:15 oxycodone Allergy Unknown Verified 04/26/25 21:15 Penicillins (PCN) Allergy Unknown Verified 04/26/25 21:15 Family History (Updated 04/27/25 @ 01:[address] Dayana Abel MD) Father Heart disease Hypertension Heart failure Mother Kidney disease Heart disease Cancer Surgical History History of lumpectomy of right breast History of lumbar laminectomy History of total replacement of both hip joints History of total bilateral knee replacement (TKR) Social History (Updated 04/27/25 @ 01:[address] Dayana Abel MD) household members: spouse Smoking Status: Never smoker alcohol intake: never substance use type: does not use ROS ROS Narrative Admission Review of Systems: CONSTITUTIONAL: No weight loss, fever, chills, + weakness or fatigue. HEENT: Eyes: No visual loss, blurred vision, double vision or yellow sclerae. Ears, Nose, Throat: No hearing loss, sneezing, congestion, runny nose or sore throat. SKIN: No rash or itching, lesions, wounds except notable chronic bilateral lowerextremity venous stasis skin changes, occasional stage ecchymoses, abrasion, pale appearing. CARDIOVASCULAR: No chest pain, chest pressure or chest discomfort, palpitations,edema, orthopnea, syncopal events. RESPIRATORY: No shortness of breath, cough or sputum, wheezing, hemoptysis. GASTROINTESTINAL: + Decreased appetite, abdominal cramping, dark red and tarry appearing stools, diarrhea, nausea, emesis times 1 noted to be clear liquids. GENITOURINARY: No dysuria, frequency, urgency or retention. NEUROLOGICAL: No headache, dizziness, syncope, paralysis, ataxia, numbness or tingling in the extremities, focal weakness, change in bowel or bladder control,seizure. MUSCULOSKELETAL: + muscle, back pain, joint pain or stiffness. HEMATOLOGIC: + Acute on chronic anemia, active bleeding is noted, easy bleeding/bruising. LYMPHATICS: No enlarged nodes. No history of splenectomy. PSYCHIATRIC: No history of depression or anxiety. ENDOCRINOLOGIC: No reports of sweating, cold or heat intolerance. No polyuria orpolydipsia. ALLERGIES: + History of allergic rhinitis. Vital Signs Vital Signs Vital Signs: 04/26/25 20:38 04/26/25 21:16 04/26/25 21:30 Temperature 98.9 F Temperature Source Temporal Pulse Rate 115 H 128 H 130 H Respiratory Rate 18 26 H 18 Blood Pressure 58/41 L 95/57 L 107/72 Blood Pressure Mean 46 69 83 Pulse Ox 97 100 Oxygen Delivery Method Room Air Room Air 04/26/25 22:00 04/26/25 22:30 Temperature Temperature Source Pulse Rate 125 H 115 H Respiratory Rate 20 H 16 Blood Pressure 100/68 104/54 L Blood Pressure Mean 78 70 Pulse Ox 100 97 Oxygen Delivery Method Room Air Weight Weight: 210 lb 8.663 oz Body Mass Index (BMI) 39.7 Physical Exam Narrative Physical Examination: General: Awake, alert, oriented x 3 and cooperative, laying in ED bed, fatigued appearing, blood being initiated now. Skin: Pale color, normal turgor, no icterus, no cyanosis, occasional stage ecchymoses likely from recent hospitalization with lab draws in addition to significant bilateral lower extremity venous stasis skin changes. HEENT: AT/NC, EOMI, PERRLA, moderately dry MM, no carotid bruits or JVD noted. Lungs: Mildly diminished, greater bases, mildly increased respiratory rate without distress, no r markedly appreciated ales, ronchi or wheezing. Heart: Irregular irregular; no gallop, rub audible. Abdomen: Soft, mild generalized discomfort palpation but no rebound or guarding,no marked distention, hyperactive BS, no appreciated HSM. Extremities: No cyanosis, no clubbing, significant pedal to knee 2+ chronic edema, notable venous stasis skin changes. Neurological: Patient awake, alert, oriented as noted, cognitive function intact; pupils equally reactive to light and accommodation, cranial nerves grossnormal, moving all 4 extremities, no focal deficits, strength severely globally decreased Psychiatric: Affect appears flat, fatigued, no acute evidence of depressive or anxiety feelings. Results Lab / Micro Data 04/26/25 20:45 04/26/25 20:45 Labs: Laboratory Results - last 24 hr 04/26/25 20:45: WBC 13.7 H, RBC 2.56 L, Hgb 7.1 L, Hct 23.0 L, MCV 89.8, MCH 27.7, MCHC 30.9 L, RDW Std Deviation 53.1 H, RDW Coeff of Marcial 16.5 H, Plt Count 339, MPV 10.4, Immature Gran % (Auto) 1.700 H, Neut % (Auto) 80.5 H, Lymph % (Auto) 11.3 L, [place] % (Auto) 5.3, Eos % (Auto) 0.8, Baso % (Auto) 0.4, Absolute Neuts (auto) 11.1 H, Absolute Lymphs (auto) 1.55, Nucleated RBC % 0, PT 20.4 H, INR 1.7, APTT 31.6, Sodium 140, Potassium 4.6, Chloride 105, Carbon Dioxide 22.7, Anion Gap 12, BUN 55 H, Creatinine 1.39 H, Estim Creat Clear Calc 31.24 L,Est GFR (MDRD) Non-Af 37 L, BUN/Creatinine Ratio 39.6 H, Glucose 183 H, Calcium 8.4 04/26/25 21:11: Blood Type O POSITIVE, Antibody Screen NEGATIVE, Crossmatch See Detail Micro: Microbiology 04/26/25 21:08 Stool Stool Occult Blood (ANDREA) - Final Occult Blood Positive Assessment & Plan Assessment/Plan (1) GI (gastrointestinal bleed): (2) Atrial fibrillation with RVR: PLAN: Plan The patient is an 84 y/o F w/ PMHx: Hx R sided breast CA unclear type status post right breast lumpectomy considered on admission, BL LE venous stasis disease/insufficiency/chronic lymphedema, PAF, Chronic normocytic anemia, CKD stage III unclear subtype per GFR trending, HFpEF, HTN, HLD, Hypothyroidism, Diabetes mellitus type II with chronic neuropathy, recent prolonged admission 04/16/2025-04/26/2025 with FERMÍN on CKD with temporary dialysis, PAF with RVR, heart failure exacerbation with serial thoracenteses secondary to recurrent pleural effusions with difficulty with rate control with RVR who now re-presents to the [facility] ED on 04/26/2025 with increasing weakness, malaise in addition to concern for bloody diarrhea with intermittent abdominal discomfort with no nausea or emesis and upon arrival patient noted to be significantly tachycardic in A-fib. #1. Transient Severe Hypotension, improving with IV fluids secondary to Acute Upper GI bleed with acute blood loss anemia on chronic anemia/normocytic anemia:Hemoglobin 04/24/25 Hgb 10.3-> 04/25/25 Hgb 9.9-> 04/26/25 Hgb8.4-> current presentation 04/26/25 20:40 repeat hemoglobin 7.1. Will admit to the ICU, will judiciously hydrate only if needed given recent HFpEF exacerbation and planned PRBC administration, monitor for overload as may require intermittent pulse IV lasix if BP appropriate although patient seems not to respond as well thus couldconsider her oral metaxalone, recieved prothrombin complex in the ED, continue to cycle H&H's, will continue Protonix infusion, per discussion with gastroenterology Dr. Still who is consulted and will follow plan for endoscopy with need for initiation of bowel prep to be started now, consumer marketing analyst will be consulted per protocol given planned admission to the unit, maintain on fall precautions. #2. Paroxysmal atrial fibrillation w/ RVR: EKG in ED w/ atrial fibrillation w/ RVR. Patient administered initially 1 L normal saline in ED. unfortunately need to be careful about volume of hydration given recent heart failure exacerbation and plan PRBC administration, as noted above may need to pulse dose Lasix, givenpatient presentation with acute blood loss anemia volume status may be a big part of patient RVR as patient has improved somewhat with fluids, continue patient amiodarone regimen with dose now, as BP allows will reinitiate patient ametoprolol and diltiazem, discontinued NOAC given current presentation. #3. Recent Acute on Chronic HFpEF Exacerbation, resolved: Notable recent presentation, issues with diuresis attempts as patient's renal function worsenedwith Lasix and was not responsive transitioned eventually to metolazone, given current presentation holding NOAC, continue statin, holding all hypertensive regimen until BP improves ideally following PRBC ministration given #1, given 1 L normal saline in the ED and PRBC thus will continue to closely monitor for overload given predisposition. May need to diurese as BP allows. #4. Recent FERMÍN on CKD stage III unclear subtype per GFR trending, resolved: Admission BUN/creatinine 55/1.39, GFR 37, baseline creatinine primarily 1.0-1.3,stable, continue to trend. #5. Hx R sided breast CA: Patient with unclear type status post right breast lumpectomy considered on admission. #6. BL LE venous stasis disease/insufficiency/chronic lymphedema: Will place neck emilie wraps with lower extremity elevation. #7. Hypertension: Will temporarily hold hypertensive regimen, ideally would preferentially use patient rate agents given PAF with RVR. #8. Hyperlipidemia: Will continue patient on statin therapy. #9. Diabetes mellitus type II with chronic neuropathy: Hold oral home regimen, currently n.p.o. status, continue accu checks w/ ISS, continue gabapentin as vitals allow. #10. Hypothyroidism: Will continue patient on levothyroxine regimen. #11. DVT prophylaxis: SCDs. #12. CODE status: Patient Healthcare power of deputy county attorney living will not in placebut she notes her and daughter who is present would be her medical decision makers if necessary. Discussed CODE status at length including difference between FULL code, DNR-CCA and DNR-CC status. Following discussions about the differences in these status, requested DNR CCA with allowance of intubation short-term only with examples discussed. Initially following discussions with daughter and patient status changed to full code but following discussion of likely outcome status given age and underlying comorbidities patient transition back to DNR-CCA as noted. Advanced Care Planning Face to Face Time: 16 minutes. Charges/Coding Visit Charges Inpatient E&M: 28001 Init Hosp L3 Procedures Hospitalists Procedures: 27148 Advncd Care Plan 30 Min 04/27/25 0156 <Electronically signed by Dayana Abel MD> Cosigner Signature (if applicable): CC: Dr. Dayana Abel MD; Ras Childress~ Signed ADDENDUM by Dr. Dayana Abel MD on 04/27/25 at 0208 Addendum Patient admission held and patient remained in the ED as awaiting staff for ICU admission. Discussed patient with ED physician and he will initiate appropriateorders while patient remains in the ED including bowel prep per Friend request. Once staff are available patient will be transition to the ICU for admission. 04/27/25 0208<Electronically signed by Dayana Abel MD> Cosigner Signature (if applicable): cc: Dr. Dayana Abel MD; Ras Childress ~* Signed [facility] Work Phone: [phone] 122-864806-07-2025 Discharge summary Author Sammy Guerrero [facility] Note Date/Time April 27, 2025 12:07 am [facility] Medical Records Department [address] [place] [address] Emergency Department Summary 04/26/25 MR#: [id number] Acct: [id number] Name: JESS JACKSON Rep #:[id number] : 1940 84 From: Sammy Tineo PCP: Ras Childress Status:REG ER Location: ED ADDENDUM by Dr. Levi Prakash MD on 04/27/25 at 0007 Patient turned over to me on dye reel operator helper in the emergency department. There areno available ICU beds partially due to staffing right now. Patient was given option by Dr. Guerrero for transfer versus staying here, they prefer to stay here, so we spoke with nursing wax room supervisor and they expect to have staff at 7 AM for the patient to be able to go to the ICU. Therefore I am comfortable continuing to care for her here in the emergency department. I coordinated with the hospitalist. I am going to obtain periodic repeat hemoglobins as the patient iscurrently on Protonix drip and getting a blood transfusion, GI wants stat prep initiated for upper and lower scopes, so we will start that and keep an eye on her vital signs and fluid status carefully, as she may require IV fluids due to the GI fluid losses, but at the same time we do not want to fluid overload her especially since she was just discharged after being admitted for congestive heart failure exacerbation. Given all of this patient was admitted to ED observation for reasons of unavailable inpatient bed at 2300 on 04/26/2025. 04/27/25 0007<Electronically signed by Levi Prakash MD> Cosigner Signature (if applicable): cc: Ras Childress ~* Signed HPI History of Present Illness Chief Complaint: Weakness Informant: patient and family Narrative Narrative: Here with daughter brought in by EMS increasing weakness. Noted diarrhea statespossibly bloody stools. Discharged hospital 2 PM. Was in the hospital for 10 days per daughter. Had pneumonia treated with antibiotics had pleural effusion right side with thoracentesis x 2 last time was 4 days ago. She states also wasin kidney failure due to her Lasix however creatinine improved upon discharge today. She was placed on metolazone due to Lasix not working. This is reportedby daughter. She is on Eliquis since December for A-fib. She was having intermittent abdominal pain for last few days while in the hospital. None currently. No vomiting. On arrival blood pressure 60s heart rate 110s. She was pale. She has not had any upper endoscopy in the past. She has not had anyblood transfusions per daughter. Reports history of heart failure. Prior similar symptoms: No PFSH PFSH Medical History Diabetes Kidney disease Non-smoker Venous (peripheral) insufficiency Atrial fibrillation CHF (congestive heart failure) Venous stasis ulcer Hyperpigmentation of skin Lipodermatosclerosis of both lower extremities Right leg swelling Left leg swelling Varicose veins of lower extremity with inflammation, 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 Chronic venous insufficiency Generalized osteoarthrosis History of right breast cancer Cardiomegaly Home Medications ?Medication ?Instructions ?Recorded ?Last Taken ?Type gabapentin 300 mg capsule 300 mg PO QHS Neuropathy 09/0604/15/25 History (Neurontin) levothyroxine 100 mcg tablet 100 mcg PO DAILY thyroid 09/30/17 04/16/25 History lisinopril 40 mg tablet 40 mg PO DAILY blood pressur e 09/30/17 04/15/25 History metformin 500 mg 24 hr 500 mg PO BID diabetes 09/3004/16/25 History tablet,extended release (gastric retention) pentoxifylline 400 mg 1 tab PO TID circulation 09/0604/16/25 History tablet,extended release acetaminophen 500 mg tablet 1,000 mg PO QHS PRN pain 0 01/08/25 Unknown History (Acetaminophen Extra Strength) cetirizine 10 mg tablet (24Hour 10 mg PO DAILY PRN all ergy symptoms 01/08/25 Unknown History Allergy) diosmin complex no.1 630 mg tablet 1 tab PO DAILY 12/2204/15/25 History (Vasculera) [id number]-qrsyvgyj-knrtdl 1 tab PO DAILY vitamin 04/16/25 History tablet (A Thru Z High Potency tablet) simvastatin 20 mg tablet 20 mg PO QHS cholesterol 04/15/25 History apixaban 5 mg tablet (Eliquis) 5 mg PO BID blood thinn er 90 days 01/23/25 04/16/25 Rx #180 tabs diltiazem HCl 240 mg 240 mg PO DAILY heart rate 3 01/23/25 04/16/25 Rx capsule,extended release 24 hr months #90 caps (Cardizem CD) metoprolol tartrate 50 mg tablet 50 mg PO BID blood pr essure 90 01/23/25 04/16/25 Rx days #180 tabs biotin 5,000 mcg sublingual tablet 5,000 mcg sublingua l DAILY 04/16/25 04/15/25 History supplement semaglutide 0.25 mg or 0.5 mg (2 0.5 mg subcut QWEEK d iabetes 04/16/25 Unknown History mg/1.5 mL) subcutaneous pen injector (Ozempic) amiodarone 200 mg tablet 200 mg PO BID #60 tabs 04/26 Unknown Rx guaifenesin 600 mg tablet, 600 mg PO BID #20 tabs 0605/15 Unknown Rx extended release 12 hr (Mucinex) metolazone 5 mg tablet 5 mg PO DAILY #30 tabs 04/26 Unknown Rx Allergy/AdvReac Type Severity Reaction Status Date / Time enoxaparin (From Lovenox) Allergy Unknown Verified 04/26/25 21:15 oxycodone Allergy Unknown Verified 04/26/25 21:15 Penicillins (PCN) Allergy Unknown Verified 04/26/25 21:15 Family History Other Heart disease Surgical History History of lumpectomy of right breast History of lumbar laminectomy History of total replacement of both hip joints History of total bilateral knee replacement (TKR) Social History Smoking Status: Never smoker ROS ROS ED Constitutional Constitutional ED: Denies chills, fever(s) or sweats ENT ENT ED: Denies sore throat Cardiovascular Cardiovascular: Denies chest pain, leg edema, palpitations or racing heartbeat Respiratory/Chest Respiratory/Chest: Denies cough, dyspnea or dyspnea on exertion Gastrointestinal Gastrointestinal: Reports diarrhea; Denies abdominal pain, nausea or vomiting Genitourinary Genitourinary ED: Denies dysuria, hematuria or urinary frequency Musculoskeletal Musculoskeletal: Denies back pain, extremity pain or neck pain Integumentary Denies rash or wounds Neurologic Neurologic: Reports weakness; Denies headache(s) or paresthesias EXAM Physical Exam Const Vital Signs: 04/26/25 20:38 04/26/25 21:16 04/26/25 21:30 Temperature 98.9 F Temperature Source Temporal Pulse Rate 115 H 128 H 130 H Respiratory Rate 18 26 H 18 Blood Pressure 58/41 L 95/57 L 107/72 Blood Pressure Mean 46 69 83 Blood Pressure Source Blood Pressure Position Blood Pressure Location Pulse Ox 97 100 Oxygen Delivery Method Room Air Room Air 04/26/25 21:42 04/26/25 22:00 04/26/25 22:00 Temperature 98.1 F 98.1 F Temperature Source Oral Oral Pulse Rate 123 H 121 H 125 H Respiratory Rate 20 H 30 H 20 H Blood Pressure 100/64 108/86 H 100/68 Blood Pressure Mean 76 93 78 Blood Pressure Source Blood Pressure Position Blood Pressure Location Pulse Ox 100 100 100 Oxygen Delivery Method Room Air Room Air Room Air 04/26/25 22:30 04/26/25 22:59 04/26/25 23:00 Temperature 98.2 F 98.4 F Temperature Source Oral Pulse Rate 115 H 130 H 120 H Respiratory Rate 16 30 H 26 H Blood Pressure 104/54 L 108/86 H 107/68 Blood Pressure Mean 70 93 81 Blood Pressure Source Blood Pressure Position Blood Pressure Location Pulse Ox 97 100 100 Oxygen Delivery Method Room Air 04/26/25 23:00 04/26/25 23:12 04/26/25 23:27 Temperature 98.4 F 97.7 F L Temperature Source Temporal Oral Pulse Rate 121 H 114 H Respiratory Rate 24 H 30 H Blood Pressure 107/68 104/66 102/69 Blood Pressure Mean 81 78 80 Blood Pressure Source Monitor Monitor Blood Pressure Position Supine Supine Blood Pressure Location Right Arm Left Arm Pulse Ox 100 100 Oxygen Delivery Method Room Air Room Air Positive well nourished and well developed General Appearance ED: well developed, NAD and pallor HEENT Reports moist mucous membranes normocephalic and atraumatic Eyes General Eye ED: Yes pale conjunctiva Neck full ROM Chest Wall Chest: Negative for tenderness Resp normal respiratory effort and normal air movement Effort and Inspection: symmetric chest movement; Negative for respiratory distress Cardio regular rate, regular rhythm and no murmurs Peripheral Pulses: pulses 2+ throughout GI normal to inspection, nondistended, normoactive bowel sounds and non-tender Palpation: Negative for guarding or rebound tenderness present Extremity normal to inspection General Extremety ED: Negative for edema or tenderness General Extremity: Negative for edema Neuro oriented x3 and no sensory deficits noted Sensorium / Orientation: awake and alert Skin General Skin Exam: pallor MDM MDM MDM Narrative Medical decision making narrative: Interventions / MDM: Differential diagnosis: Upper GI bleed, melanotic stools, transient hypotension,chronic anticoagulation, atrial fibrillation Diagnosis considered but do not suspect: N/A My EKG interpretation: Atrial fibrillation rate 122, right bundle branch block, no ST changes, T wave inversions inferior leads. Similar to April 16, 2025. Imaging independently reviewed and interpreted by myself: N/A External documents reviewed: Echocardiogram April 16, 2025 EF of 55%. Labs from hemoglobin was trending down from 10-8.4 on discharge today. Test considered but not ordered:N/A ED course: Presenting pressure of 58/41 pulse of 115. She was pale on exam. She is on the commode had a melanotic bowel movement liquid. Nontender abdomen. She does not drink alcohol. Fluids were started. Type and cross for 2 units of blood. She is on Eliquis with her hypotension I did order for Kcentra. EKG labs ordered. 2149: Hemoglobin returned at 7.1. Blood pressure 95/57 heart rate 120s. EKG with A-fib. 2219: Blood pressure improving fluids blood is ready to be infused. Heart rate 120s A-fib. I did speak with GI Dr. Friend who is aware. Agrees with blood transfusion Protonix drip. Will keep her n.p.o. Will discuss with hospitalist for admission. I discussed with hospitalist Dr. Abel for admission to ICU. Re-evaluation: stable Disposition discussed with patient/family/significant other: Patient and daughter Case discussed with consulting clinician: Gastroenterology, hospitalist This note was generated with ReelGenieation software. It may contain incorrectwords, spelling, and punctuation that were not noted in checking the note beforesigning. Lab Data Attestation: I reviewed the patient's lab results. Labs: Laboratory Results - last 24 hr 04/26/25 04/26/25 20:45 21:11 WBC 13.7 H RBC 2.56 L Hgb 7.1 L Hct 23.0 L MCV 89.8 MCH 27.7 MCHC 30.9 L RDW Std Deviation 53.1 H RDW Coeff of Marcial 16.5 H Plt Count 339 MPV 10.4 Immature Gran % (Auto) 1.700 H Neut % (Auto) 80.5 H Lymph % (Auto) 11.3 L Berks % (Auto) 5.3 Eos % (Auto) 0.8 Baso % (Auto) 0.4 Absolute Neuts (auto) 11.1 H Absolute Lymphs (auto) 1.55 Nucleated RBC % 0 PT 20.4 H INR 1.7 APTT 31.6 Sodium 140 Potassium 4.6 Chloride 105 Carbon Dioxide 22.7 Anion Gap 12 BUN 55 H Creatinine 1.39 H Estim Creat Clear Calc 31.24 L Est GFR (MDRD) Non-Af 37 L BUN/Creatinine Ratio 39.6 H Glucose 183 H Calcium 8.4 Blood Type O POSITIVE Antibody Screen NEGATIVE Crossmatch See Detail Critical Care Time Critical Care Time: Yes Critical care time (excluding procedures): 30-74 minutes, Discussing w/Patient &/or Family/Platform Power Technician, Discussing w/Consultants, Arranging Admission or Transfer, Performing Direct Patient Care at Bedside and - (40 minutes) Discharge Plan Dx/Rx/DC Orders Clinical Impression: GI (gastrointestinal bleed), Atrial fibrillation with RVR, Melanotic stools, Chronic anticoagulation, Transient hypotension Disposition Disposition: Acute Care Hospital [facility] What to do if you have Problems For any increased pain, shortness of breath, bleeding, nausea or vomiting, chestpain, or any unexpected problems, contact your Primary Care Provider. Call [facility] ([phone]) or report to the closest Emergency Room. Call 911 if necessary. 04/26/25 0509 <Electronically signed by Sammy Tineo> Cosigner Signature (if applicable): CC: Ras Childress ~ Signed [facility] Work Phone: 1(374) 983-612606-06-2025 Telephone encounter Note* Telephone Encounter - Sherron Barnes MA - 04/26/2025 3:30 PM EDT Left detailed message on secure Sherron Barnes MA [facility]06-06-2025 Miscellaneous Notes* Telephone Encounter - Sherron Barnes MA - 04/26/2025 3:30 PM EDT Left detailed message on secure Sherron Barnes MA * Telephone Encounter - Meena Guerra MD - 04/26/2025 2:58 PM EDT Yes will follow up Meena Asif MD * Telephone Encounter - Elenita Ponce RN - 04/26/2025 2:26 PM EDT Sydni with [facility] calls to ask if provider will follow their orders for SN, PT, OT. Patient currently at [facility] PCU for CHF exacerbation and A-fib. Patient to discharge today. Call back number is [phone]. Please review and advise, Elenita Ponce RN documented in this encounterA[facility] Telephone encounter Note * Telephone Encounter - Meena Guerra MD - 04/26/2025 2:58 PM EDT Yes will follow up Meena Asif MD [facility]06-06-2025 Telephone encounter Note* Telephone Encounter - Elenita Ponce RN - 04/26/2025 2:26 PM EDT Sydni with [facility] calls to ask if provider will follow their HH orders for SN, PT, OT. Patient currently at [facility] PCU for CHF exacerbation and A-fib. Patient to discharge today. Call back number is [phone]. Please review and advise, Elenita Ponce RN [facility]06-06[facility] History of Present illness Narrative* Miranda Farris MA - 04/26/2025 12:38 PM EDT POPULATION HEALTH NAVIGATION OUTREACH Action/FYI Gaps due: AWV No HCCs or med adherence. Answered but couldn't hear me, sent mcm. Reason for Outreach Care Gap/HCC or Scheduling Wellness Visits Care Gaps due: Medicare Annual Wellness Visit Patient Contacted: Unable or unnecessary to reach patient: Unable to leave message Stormpathhart message sent Updated appointment notes Navigation Signature: Miranda Farris MA April 26, 2025 12:38 PM documented in this encounterA[facility]06[facility] Discharge summary Author [facility] Note Date/Time April 26, 2025 12:[address] [facility] Medical Records Department [address] [place] [address] Discharge Summary 04/26/25 1005 MR#: [id number] Acct: [id number] Name: JESS JACKSON Rep #:[id number] : 1940 84 From: Amado Bailey MD PCP: Ras Childress Status[facility] Prov[facility] Date of Admission: 04/16/25 Date of Discharge: 04/26/25 Primary Care Physician: Ras Childress Consultations 04/17/25 11:48 Consult: Nephrology Routine Consulting Provider: Melissa Garcia Reason for Consult: FERMÍN EMERGENT Consult: No MD Notified: Yes Date Notified: 04/17/25 Time Notified: 12:25 Method of Notification: Answering Service 04/18/25 09:38 Consult: Cardiology Routine Consulting Provider: Edward Le Reason for Consult: afib; chf EMERGENT Consult: No MD Notified: Yes Date Notified: 04/18/25 Time Notified: 09:38 Method of Notification: Verbal 04/20/25 11:43 Consult: General Surgery Routine Consulting Provider: Aubrey De Luna Reason for Consult: For temp Dialysis catether EMERGENT Consult: No Notified: Yes Date Notified: 04/20/25 Time Notified: 10:20 Method of Notification: Verbal 04/22/25 09:08 Consult: Mold Blower / Pulmonary Medicine Routine Consulting Provider: Intensivists/Pulmonary Med Reason for Consult: Recurrent pleural effusion EMERGENT Consult: No MD Notified: Yes Date Notified: 04/22/25 Time Notified: 09:08 Method of Notification: Verbal 04/22/25 09:12 Consult: Mold Blower / Pulmonary Medicine Routine Consulting Provider: Intensivists/Pulmonary Med Reason for Consult: Reoccuring pleural effusions EMERGENT Consult: No MD Notified: Yes Date Notified: 04/22/25 Time Notified: 09:12 Method of Notification: Verbal 04/22/25 12:44 Consult: Cardiology Routine Consulting Provider: Kayla Fields Reason for Consult: A-fib with RVR EMERGENT Consult: No MD Notified: Yes Date Notified: 04/22/25 Time Notified: 12:45 Method of Notification: Verbal Reason For Visit: CHF EXACERBATION Diagnosis Discharge Diagnosis (1) (HFpEF) heart failure with preserved ejection fraction: Status: Acute Code(s): I50.30 - Unspecified diastolic (congestive) heart failure Qualifiers: Heart failure chronicity: acute on chronic Qualified Code(s): I50.33 - Acute on chronic diastolic (congestive) heart failure (2) Pleural effusion: Status: Acute Code(s): J90 - Pleural effusion, not elsewhere classified (3) FERMÍN (acute kidney injury): Status: Acute Code(s): N17.9 - Acute kidney failure, unspecified (4) Atrial fibrillation with rapid ventricular response: Status: Acute Code(s): I48.91 - Unspecified atrial fibrillation Plan Patient is an 84-year-old lady with past medical history significant for paroxysmal A-fib who presented with progressive shortness of breath and assessment of acute congestive heart failure made admitted to monitored bed for further management 1. Acute on chronic congestive heart failure with preserved ejection fraction ? Patient admitted to monitored bed treatment initiated with strict input and output, daily weights, fluid restriction as well as diuretic therapy with furosemide drip. As part of patient's management 2D echo was ordered on admission demonstrated ejection fraction of 55-60 % and Severe biatrial enlargement. ? Patient is on furosemide drip however response to therapy not impressive. Consult placed to cardiology. Family request ? 04/19/2025; patient is on furosemide drip however appears not to be responding. Creatinine and BUN worsening. ? 04/20/2025; patient BUN and creatinine continues to worsen. Lasix drip held given patient being relatively hypotensive. ? 04/21/2025; patient furosemide discontinued started on Zaroxolyn ? 04/25/2025;Chest x-ray this morning did demonstrate congestive heart failure with bilateral pleural effusions and bibasilar atelectasis. Patient continues to improve clinically and has been weaned off oxygen. ? 04/26/2025; plan is to assess patient for home oxygen requirement prior to making a decision to discharge patient ? Patient however did not qualify for home oxygen 2. Large right-sided pleural effusion ? CT of the chest obtained did show Large right pleural effusion with compressive atelectasis. Small left pleural effusion with compressive atelectasis.. An order was given for patient to undergo ultrasound-guided thoracocentesis as part of subsequent evaluation ordered pleural fluid studies including LDH WBC, and glucose levels ? 04/18/2025; patient ultrasound guided thoracocentesis centesis scheduled for 04/19/2025. ? 04/19/2025; patient scheduled to undergo ultrasound-guided paracentesis ? 04/20/2025: Patient underwent ultrasound-guided thoracocentesis on 04/19/2025 with 1350 mL of blood-tinged fluid aspirated sample sent to the lab for analysis.Patient was noted to be dyspneic earlier in the early hours of this a.m. patient placed on supplemental oxygen repeat x-ray ordered which did show reaccumulation of a moderate right pleural effusion again with adjacent right base passive collapse. No pneumothorax identified. Similar appearance of possible small left effusion and basilar atelectasis, passive collapse. ? 04/22/2025; repeat chest x-ray ordered for further evaluation ? 04/23/2025;Patient underwent repeat thoracocentesis the day prior1.5 L of fluid was taken out. Fluid analysis still consistent with transudate. Consult was placed to pulmonary medicine Case discussed with Dr. Wong. ? 04/24/2025Had a discussion with patient's daughter and son plan is to repeat imaging studies and if there is reaccumulation of the fluid consideration will be given to patient being transferred to a tertiary care center for possible pleurodesis ? 04/25/2022;Chest x-ray this morning did demonstrate congestive heart failure with bilateral pleural effusions and bibasilar atelectasis. Will hold off with further thoracocentesis. ? 04/26/2025; prescription written for metolazone on discharge 3. Acute kidney injury ? Suspected to be secondary to hypoperfusion from patient congestive heart failure. Creatinine from 01/10/2025 was 1.07 creatinine on admission was 2.31. Patient kidney function actually did worsen with diuresis with creatinine bumping up to 2.62. Subsequently requested for kidney ultrasound and nephrologyconsultation obtained ? 04/18/2025; patient kidney function did worsen. Subsequently requested nephrology consultation as well as ordered kidney ultrasound. Repeat BMP ordered in a.m. for follow-up ? 04/19/2025; Patient kidney function continues to worsen with BUN of 108 and creatinine of 2.93. Consult has been placed to nephrology today prior renal ultrasound obtained came back unremarkable. Repeat BMP ordered for a.m. ? 04/20/2025; patient kidney function continues to worsen. Family to decide if they want to proceed with temporary dialysis. Had a discussion with patient [id number]. Patient is agreeable to temporary dialysis catheter for now.. Consult subsequently placed to general surgery Case discussed with Dr. Michael De Luna ? 04/21/2025; patient creatinine down to 1.98, BUN down to 95 ? 04/22/2025; BMP this morning reviewed. Significant improvement in creatinine which is down to 1.03. Repeat BMP ordered. ? 04/23/2025. Repeat BMP the day prior came back at 1.38, patient creatinine [place] down to 1.25 ? 04/26/2025; creatinine at the time of discharge 1.15. Plan is for patient to follow-up with Dr. Garcia as outpatient 4. Paroxysmal atrial fibrillation ? Patient went into A-fib with RVR necessitating patient being started on Cardizem drip which is currently being titrated to keep heart rate less than 100 ? 04/20/2025 patient is on apixaban decision was made to hold in anticipation of possible temporary dialysis catheter placement ? 04/21/2025; patient apixaban placed on hold. Started on p.o. Cardizem and metoprolol given her heart rates going up ? 04/22/2025; patient heart rates control still not optimal continues to remain labile ? 04/23/2025; patient went into A-fib with RVR necessitating patient being startedon amiodarone drip after bolus was given. Heart rate remains uncontrolled. Cardiology was reconsulted ? 04/24/2025 7Patient was switched from IV amiodarone to p.o. amiodarone the day prior. Heart rate control still not optimal. ? 04/25/2025; patient creatinine down to 1.1. 5. Acute hypoxic respiratory failure ? Secondary to congestive heart failure and large right sided pleural effusion. Patient was placed on supplemental oxygen in addition to bronchodilator treatment. ? 04/18/2025; patient to be assessed for home oxygen prior to this ? 04/20/2025; did ask patient about possible intubation if warranted. Patient isnot show how she wants to proceed and wants to have a discussion with the familyprior to making a decision ? 04/21/2025; patient had to be placed on noninvasive ventilation via Airvo after going into respiratory distress with significant hypoxia. ? 04/22/2025; patient has been weaned off Airvo now on nasal 6. Hypotension ? 04/20/2025 patient diuretic therapy as well as antihypertensive and antiarrhythmic's?Cardizem and metoprolol held. Resuscitated with IV fluid. An order was given for patient to be transferred to the intensive care unit. Did place an order for PICC line and order written for norepinephrine if patient does not respond to IV fluid resuscitation ? 04/21/2025; patient did respond to IV fluids ? 04/25/2025; patient blood pressure still soft 7. Essential hypertension ? Patient is on 40 mg of lisinopril held given patient worsening kidney function ? 04/20/2025; patient antihypertensives on hold given patient relatively low blood pressure 8. Hypothyroidism ? Patient is on levothyroxine home dose continued 9. Class II obesity ? Complicating care weight loss advised 10. Degenerative joint disease ? Pain meds as needed 11. Dyslipidemia ?Patient is on statin therapy, continued at home dose 12. Diabetes mellitus type 2 ? Patient is on metformin held on admission placed on Accu-Cheks AC and at bedtime with sliding scale coverage 13. Bilateral lower extremity venous insufficiency Manage patient to follow-up with PCP for outpatient management 14. Suspected pneumonia with Klebsiella pneumonia ? Patient has elevated WBC count with a left shift. CT of the chest obtained the day prior demonstrated infiltrate at the bases of both lungs. Patient subsequently started on ceftriaxone and azithromycin. Also did send for sputum and blood culture ? 04/19/2025; sputum cultures came out positive for Klebsiella pneumonia remains on appropriate antibiotic therapy 15. Physical deconditioning ? Requested for PT OT eval and social problems specialist to assist with discharge planning ? 04/25/2025; did have a discussion with patient about possibility of being to a shelter facility for possible rehab ? 04/26/2025; patient did not meet criteria to be discharged to a shelter facility. Plan therefore will be to discharge patient home with home health 16. DVT prophylaxis ? Patient is on apixaban held prior to patient thoracocentesis resumed subsequently Time spent in the patient's overall evaluation,decision-making process, review of diagnostic data, adjustment of management, discussion with other providers, nursing nursing, ancillary staff as well as patient's family involved in patient's care documentation, 35 Medications at Discharge Home Medications gabapentin 300 mg capsule (Neurontin) 300 mg PO QHS Neuropathy 09/30/17 levothyroxine 100 mcg tablet 100 mcg PO DAILY thyroid 09/30/17 lisinopril 40 mg tablet 40 mg PO DAILY blood pressure 09/30/17 metformin 500 mg 24 hr tablet,extended release (gastric retention) 500 mg PO BIDdiabetes 09/30/17 pentoxifylline 400 mg tablet,extended release 1 tab PO TID circulation 09/30/17 acetaminophen 500 mg tablet (Acetaminophen Extra Strength) 1,000 mg PO QHS PRN pain 01/08/25 cetirizine 10 mg tablet (24Hour Allergy) 10 mg PO DAILY PRN allergy symptoms 01/08/25 diosmin complex no.1 630 mg tablet (Vasculera) 1 tab PO DAILY 01/08/25 zsaxjdwwtcco-vyevulcl-sqvaws tablet (A Thru Z High Potency tablet) 1 tab PO DAILY vitamin 01/08/25 simvastatin 20 mg tablet 20 mg PO QHS cholesterol 01/08/25 apixaban 5 mg tablet (Eliquis) 5 mg PO BID blood thinner 90 days #180 tabs 01/23/25 diltiazem HCl 240 mg capsule,extended release 24 hr (Cardizem CD) 240 mg PO DAILY heart rate 3 months #90 caps 01/23/25 metoprolol tartrate 50 mg tablet 50 mg PO BID blood pressure 90 days #180 tabs 01/23/25 biotin 5,000 mcg sublingual tablet 5,000 mcg sublingual DAILY supplement 04/16/25 semaglutide 0.25 mg or 0.5 mg (2 mg/1.5 mL) subcutaneous pen injector (Ozempic) 0.5 mg subcut QWEEK diabetes 04/16/25 amiodarone 200 mg tablet 200 mg PO BID #60 tabs 04/26/25 guaifenesin 600 mg tablet, extended release 12 hr (Mucinex) 600 mg PO BID #20 tabs 04/26/25 metolazone 5 mg tablet 5 mg PO DAILY #30 tabs 04/26/25 Physical Exam Narrative GENERAL: Cooperative HEENT: Atraumatic; normocephalic EYES; Anicteric, Normal Conjunctiva NECK; supple, normal thyroid, RESPIRATORY: Diminished to auscultation, CARDIOVASCULAR: Irregular S1-S2 but rate controlled GI: soft, normoactive bowel sounds, : No Renal angle tenderness; EXTREMITIES: Bipedal edema, with stasis dermatitis MUSCULOSKELETAL: no muscle wasting NEURO: Awake; no lateralizing signs. SKIN: No Rash PSYCH; Flat affect Weight / BMI Weight Weight: 93.1 kg Body Mass Index (BMI) 38.7 ABG / Lab / Microbiology Data 04/26/25 06:40 04/26/25 06:40 Laboratory: Laboratory Results - last 24 hr 04/25/25 16:37: POC Glucose 147 H 04/25/25 22:26: POC Glucose 139 H 04/26/25 06:37: POC Glucose 142 H 04/26/25 06:40: WBC 11.1 H, RBC 3.00 L, Hgb 8.4 L, Hct 26.7 L, MCV 89.0, MCH 28.0, MCHC 31.5 L, RDW Std Deviation 52.7 H, RDW Coeff of Marcial 16.3 H, Plt Count 297, MPV 9.9, Immature Gran % (Auto) 0.700, Neut % (Auto) 82.2 H, Lymph % (Auto)8.5 L, Berks % (Auto) 5.8, Eos % (Auto) 2.4, Baso % (Auto) 0.4, Absolute Neuts (auto) 9.1 H, Absolute Lymphs (auto) 0.95, Nucleated RBC % 0, Sodium 140, Potassium 4.0, Chloride 107, Carbon Dioxide 26.0, Anion Gap 7, BUN 46 H, Creatinine 1.15, Estim Creat Clear Calc 37.22 L, Est GFR (MDRD) Non-Af 47 L, BUN/Creatinine Ratio 39.6 H, Glucose 150 H, Calcium 8.6 Microbiology: Microbiology 04/22/25 14:10 Fluid - Thoracentesis Fluid Gram Stain - Final 04/22/25 14:10 Fluid - Thoracentesis Fluid Body Fluid Culture - Preliminary No growth-Final to follow 04/22/25 14:10 Fluid - Thoracentesis Fluid Anaerobic Culture - Preliminary No growth in 48 hours. 04/18/25 10:50 Blood Culture (Wb) - Arm Right Blood Culture - Final No growth in 5 days. 04/18/25 11:00 Blood Culture (Wb) - Right Wrist Blood Culture - Final No growth in 5 days. 04/16/25 16:16 Sputum, Expectorated/Coughed Gram Stain - Final 04/16/25 16:16 Sputum, Expectorated/Coughed Respiratory Culture - Final Klebsiella pneumoniae sp pneum 04/18/25 10:51 Mucosa - Nasopharyngeal Respiratory Panel (PCR) - Final 04/18/25 10:00 Urine Catheter - Ray Legionella Antigen - Final 04/18/25 10:00 Urine Catheter - Ray Streptococcus pneumoniae Antigen (M - Final 04/18/25 10:51 Mucosa - Nasopharyngeal Coronavirus COVID-19 PCR - Final D/C Instructions Discharge Diet: Low fat / Low cholesterol, 1800 Calorie Control Diet, 8 Cup Fluid Restriction and 2000 mg Sodium Diet DC O2, CPAP, BIPAP Needs Home O2 Discharge instructions: No Meaningful Use Info Meaningful Use Meaningful Use Diagnoses (Choose all that apply): CHF CHF EMILIE/ARB ordered at discharge?: No Reason EMILIE/ARB not ordered?: Not indicated Documented LVEF (%): 55 Ischemic Stroke Statin Dosing Therapy Reference: STATIN DOSE THERAPY REFERENCE: * Patients > 75 years receive moderate or high dose statin therapy. * Patients 75 years or YOUNGER should receive HIGH intensity statin dose unless contraindicated. You will be required to document reason for non-treatment if statin daily dose does not meet guidelines. HIGH DOSE STATIN THERAPY DAILY Atorvastatin > than or = to 40 mg Rosuvastatin > than or = to 20 mg Amlodipine + Atorvastatin > than or = to 2.5/40 mg Ezetimibe + Simvastatin 10/80 mg Simvastatin 80mg Discharge Plan Admission Admit Date/Time: 04/16/25 13:59 Attending Provider: Amado Bailey Primary Care Provider: Ras Childress Consulting Providers: Ras Blas; Koki Mcnulty; Migel Akins; Oscar Parmar; Nagi Martin; Jae Wong; Yang Rogers; Mason Rodriguez; Franko Shaw; Rich Hand; Aurora Huerta; Reji Aguilar; Eric Stanford; Babak Kilpatrick; Ten Turner; Claudia Gomes; Roger Murphy; Nitish Monsivais; Mary Lang; Gustavo Avila; Darien Barry; Amado Cortez; Heron Sosa; Gaudencio Garrison; Edward Le; Kayla Fields; Aubrey De Luna; Melissa Garcia Discharge Orders/Prescriptions Prescriptions: New amiodarone 200 mg Tablet 200 mg PO BID Qty: 60 0RF metolazone 5 mg Tablet 5 mg PO DAILY Qty: 30 0RF guaifenesin [Mucinex] 600 mg Tablet Extended Release 12hr 600 mg PO BID Qty: 20 0RF Continued Eliquis 5 mg tablet 5 mg PO BID 90 Days Qty: 180 3RF diltiazem HCl [Cardizem CD] 240 mg capsule,extended release 24hr 240 mg PO DAILY 90 Days Qty: 90 3RF Rx Instructions: Hold for heart less than 50 or systolic blood pressure less than 100 mmHg. metoprolol tartrate 50 mg tablet 50 mg PO BID 90 Days Qty: 180 3RF Rx Instructions: Hold for heart less than 50 or systolic blood pressure less than 100 mmHg. levothyroxine 100 MCG tablet 100 mcg PO DAILY gabapentin [Neurontin] 300 MG capsule 300 mg PO QHS lisinopril 40 MG tablet 40 mg PO DAILY metformin 500 MG tablet,ER mynor.retention 24 hr 500 mg PO BID pentoxifylline 400 MG tablet 1 tab PO TID simvastatin 20 mg tablet 20 mg PO QHS Patient Comments: [NO ORIGINAL SIG] Vasculera 630 mg tablet 1 tab PO DAILY A Thru Z High Potency Tablet 1 tab PO DAILY cetirizine [24Hour Allergy] 10 mg tablet 10 mg PO DAILY PRN (Reason: allergy symptoms) acetaminophen [Acetaminophen Extra Strength] 500 mg tablet 1,000 mg PO QHS PRN (Reason: pain) biotin 5,000 mcg tablet, sublingual 5,000 mcg sublingual DAILY Ozempic 0.25 mg or 0.5 mg(2 mg/1.5 mL) pen injector 0.5 mg subcut QWEEK Rx Instructions: for 4 weeks Discontinued furosemide 40 mg tablet 40 mg PO DAILY 90 Days Qty: 90 3RF Rx Instructions: Take extra 40 mg dose at 5 PM for increased leg swelling or weight gain 5 pounds in 1 week. Referrals / Follow Up: Meena Guerra MD [Med Staff - Compliance Aide] - Within 1 Week Edward Le MD [Med Staff - Active Staff] - Within 2 Weeks ([facility]) Melissa Garcia MD [Med Staff - Consulting] - Within 2 Weeks (Will call directly from office to schedule ) Disposition Disposition (needs filled in before D/C Order can be placed): Home Health Service Charges/Coding Visit Charges Inpatient E&M: 28162 Disch Hosp >30min 04/26/25 1256 <Electronically signed by Amado Bailey MD> Cosigner Signature (if applicable): CC: Dr. Amado Bailey MD; Ras Childress~ Signed [facility] Work Phone: 1(639) 645-800906-06-2025 Progress note Author Amado Bailey [facility] Note Date/Time April 26, 2025 9:56a m [facility] Medical Records Department [address] [place] [address] Progress Note - Hospitalist 04/26/25 0720 MR#: [id number] Acct: [id number] Name: JESS JACKSON Rep #:[id number] : 1940 84 From: Amado Bailey MD PCP: Ras Childress Status:ADM IN Location: [place] [address] Reason for Visit Reason for Visit: Diagnoses Unspecified atrial fibrillation (04/16/25) Unspecified diastolic (congestive) heart failure (04/16/25) Acute on chronic diastolic (congestive) heart failure (04/16/25) Pleural effusion, not elsewhere classified (04/16/25) Acute kidney failure, unspecified (04/16/25) Personal history of other endocrine, nutritional and metabolic disease (04/16/25) Subjective Subjective Patient seen continues to improve clinically. Patient is requesting to be discharged. Was seen and assessed by physical therapy. Patient does not meet criteria for shelter placement. Plan therefore will be to discharge patient home with home health Objective Data Objective Data Vital Signs: Vital Signs Temp Pulse Resp BP Pulse Ox O2 Del Method O2 Flow Rate 96.0 F L 103 H 18 118/89 H 96 Room Air 2 04/25/25 22:30 04/26/25 05:06 04/25/25 22:30 04/26/25 05:06 04/25/25 22:30 04/25/25 22:30 04/23/25 07:47 FiO2 30 04/21/25 15:03 Oxygen Flow Rate (L/min) 2 Oxygen Delivery Method Room Air Weight: 93.1 kg Body Mass Index (BMI) 38.7 Intake & Output: Intake and Output for Last 24 Hours 04/24/25 04/25/25 04/26/25 23:59 23:59 23:59 Intake Total 50 / 50 770 / 1250 730 / 730 Output Total 700 / 700 Balance -650 / -650 770 / 1250 730 / 730 Lab / Micro Data 04/26/25 06:40 04/26/25 06:40 Labs: Laboratory Results - last 24 hr 04/25/25 12:09: POC Glucose 165 H 04/25/25 16:37: POC Glucose 147 H 04/25/25 22:26: POC Glucose 139 H 04/26/25 06:37: POC Glucose 142 H 04/26/25 06:40: WBC 11.1 H, RBC 3.00 L, Hgb 8.4 L, Hct 26.7 L, MCV 89.0, MCH 28.0, MCHC 31.5 L, RDW Std Deviation 52.7 H, RDW Coeff of Marcial 16.3 H, Plt Count 297, MPV 9.9, Immature Gran % (Auto) 0.700, Neut % (Auto) 82.2 H, Lymph % (Auto)8.5 L, Berks % (Auto) 5.8, Eos % (Auto) 2.4, Baso % (Auto) 0.4, Absolute Neuts (auto) 9.1 H, Absolute Lymphs (auto) 0.95, Nucleated RBC % 0 Micro: Microbiology 04/22/25 14:10 Fluid - Thoracentesis Fluid Gram Stain - Final 04/22/25 14:10 Fluid - Thoracentesis Fluid Body Fluid Culture - Preliminary No growth-Final to follow 04/22/25 14:10 Fluid - Thoracentesis Fluid Anaerobic Culture - Preliminary No growth in 48 hours. 04/18/25 10:50 Blood Culture (Wb) - Arm Right Blood Culture - Final No growth in 5 days. 04/18/25 11:00 Blood Culture (Wb) - Right Wrist Blood Culture - Final No growth in 5 days. 04/16/25 16:16 Sputum, Expectorated/Coughed Gram Stain - Final 04/16/25 16:16 Sputum, Expectorated/Coughed Respiratory Culture - Final Klebsiella pneumoniae sp pneum 04/18/25 10:51 Mucosa - Nasopharyngeal Respiratory Panel (PCR) - Final 04/18/25 10:00 Urine Catheter - Ray Legionella Antigen - Final 04/18/25 10:00 Urine Catheter - Ray Streptococcus pneumoniae Antigen (M - Final 04/18/25 10:51 Mucosa - Nasopharyngeal Coronavirus COVID-19 PCR - Final Rhythm Strip Rhythm Strip: A-fib Rate: 125 Physical Exam Narrative GENERAL: Cooperative off oxygen HEENT: Atraumatic; normocephalic EYES; Anicteric, Normal Conjunctiva NECK; supple, normal thyroid, RESPIRATORY: Diminished to auscultation, CARDIOVASCULAR: Irregular S1-S2 but rate controlled GI: soft, normoactive bowel sounds, : No Renal angle tenderness; EXTREMITIES: Bipedal edema, no clubbing, MUSCULOSKELETAL: no muscle wasting NEURO: Awake; no lateralizing signs. SKIN: No Rash PSYCH; Flat affect Assessment & Plan Assessment/Plan (1) (HFpEF) heart failure with preserved ejection fraction: QUALIFIERS: Heart failure chronicity: acute on chronic Qualified Code(s): I50.33 - Acute on chronic diastolic (congestive) heart failure (2) Pleural effusion: (3) FERMÍN (acute kidney injury): (4) Atrial fibrillation with rapid ventricular response: PLAN: Plan Patient is an 84-year-old lady with past medical history significant for paroxysmal A-fib who presented with progressive shortness of breath and assessment of acute congestive heart failure made admitted to monitored bed for further management 1. Acute on chronic congestive heart failure with preserved ejection fraction ? Patient admitted to monitored bed treatment initiated with strict input and output, daily weights, fluid restriction as well as diuretic therapy with furosemide drip. As part of patient's management 2D echo was ordered on admission demonstrated ejection fraction of 55-60 % and Severe biatrial enlargement. ? Patient is on furosemide drip however response to therapy not impressive. Consult placed to cardiology. Family request ? 04/19/2025; patient is on furosemide drip however appears not to be responding. Creatinine and BUN worsening. ? 04/20/2025; patient BUN and creatinine continues to worsen. Lasix drip held given patient being relatively hypotensive. ? 04/21/2025; patient furosemide discontinued started on Zaroxolyn ? 04/25/2025;Chest x-ray this morning did demonstrate congestive heart failure with bilateral pleural effusions and bibasilar atelectasis. Patient continues to improve clinically and has been weaned off oxygen. ? 04/26/2025; plan is to assess patient for home oxygen requirement prior to making a decision to discharge patient 2. Large right-sided pleural effusion ? CT of the chest obtained did show Large right pleural effusion with compressive atelectasis. Small left pleural effusion with compressive atelectasis.. An order was given for patient to undergo ultrasound-guided thoracocentesis as part of subsequent evaluation ordered pleural fluid studies including LDH WBC, and glucose levels ? 04/18/2025; patient ultrasound guided thoracocentesis centesis scheduled for 04/19/2025. ? 04/19/2025; patient scheduled to undergo ultrasound-guided paracentesis ? 04/20/2025: Patient underwent ultrasound-guided thoracocentesis on 04/19/2025 with 1350 mL of blood-tinged fluid aspirated sample sent to the lab for analysis.Patient was noted to be dyspneic earlier in the early hours of this a.m. patient placed on supplemental oxygen repeat x-ray ordered which did show reaccumulation of a moderate right pleural effusion again with adjacent right base passive collapse. No pneumothorax identified. Similar appearance of possible small left effusion and basilar atelectasis, passive collapse. ? 04/22/2025; repeat chest x-ray ordered for further evaluation ? 04/23/2025;Patient underwent repeat thoracocentesis the day prior1.5 L of fluid was taken out. Fluid analysis still consistent with transudate. Consult was placed to pulmonary medicine Case discussed with Dr. Wong. ? 04/24/2025Had a discussion with patient's daughter and son plan is to repeat imaging studies and if there is reaccumulation of the fluid consideration will be given to patient being transferred to a tertiary care center for possible pleurodesis ? 04/25/2022;Chest x-ray this morning did demonstrate congestive heart failure with bilateral pleural effusions and bibasilar atelectasis. Will hold off with further thoracocentesis. 3. Acute kidney injury ? Suspected to be secondary to hypoperfusion from patient congestive heart failure. Creatinine from 01/10/2025 was 1.07 creatinine on admission was 2.31. Patient kidney function actually did worsen with diuresis with creatinine bumping up to 2.62. Subsequently requested for kidney ultrasound and nephrologyconsultation obtained ? 04/18/2025; patient kidney function did worsen. Subsequently requested nephrology consultation as well as ordered kidney ultrasound. Repeat BMP ordered in a.m. for follow-up ? 04/19/2025; Patient kidney function continues to worsen with BUN of 108 and creatinine of 2.93. Consult has been placed to nephrology today prior renal ultrasound obtained came back unremarkable. Repeat BMP ordered for a.m. ? 04/20/2025; patient kidney function continues to worsen. Family to decide if they want to proceed with temporary dialysis. Had a discussion with patient [id number]. Patient is agreeable to temporary dialysis catheter for now.. Consult subsequently placed to general surgery Case discussed with Dr. Michael De Luna ? 04/21/2025; patient creatinine down to 1.98, BUN down to 95 ? 04/22/2025; BMP this morning reviewed. Significant improvement in creatinine which is down to 1.03. Repeat BMP ordered. ? 05/20/2025. Repeat BMP the day prior came back at 1.38, patient creatinine [place] down to 1.25 4. Paroxysmal atrial fibrillation ? Patient went into A-fib with RVR necessitating patient being started on Cardizem drip which is currently being titrated to keep heart rate less than 100 ? 04/20/2025 patient is on apixaban decision was made to hold in anticipation of possible temporary dialysis catheter placement ? 04/21/2025; patient apixaban placed on hold. Started on p.o. Cardizem and metoprolol given her heart rates going up ? 04/22/2025; patient heart rates control still not optimal continues to remain labile ? 04/23/2025; patient went into A-fib with RVR necessitating patient being startedon amiodarone drip after bolus was given. Heart rate remains uncontrolled. Cardiology was reconsulted ? 04/24/2025 7Patient was switched from IV amiodarone to p.o. amiodarone the day prior. Heart rate control still not optimal. ? 04/25/2025; patient creatinine down to 1.1. 5. Acute hypoxic respiratory failure ? Secondary to congestive heart failure and large right sided pleural effusion. Patient was placed on supplemental oxygen in addition to bronchodilator treatment. ? 04/18/2025; patient to be assessed for home oxygen prior to this ? 04/20/2025; did ask patient about possible intubation if warranted. Patient isnot show how she wants to proceed and wants to have a discussion with the familyprior to making a decision ? 04/21/2025; patient had to be placed on noninvasive ventilation via Airvo after going into respiratory distress with significant hypoxia. ? 04/22/2025; patient has been weaned off Airvo now on nasal 6. Hypotension ? 04/20/2025 patient diuretic therapy as well as antihypertensive and antiarrhythmic's?Cardizem and metoprolol held. Resuscitated with IV fluid. An order was given for patient to be transferred to the intensive care unit. Did place an order for PICC line and order written for norepinephrine if patient does not respond to IV fluid resuscitation ? 04/21/2025; patient did respond to IV fluids ? 04/25/2025; patient blood pressure still soft 7. Essential hypertension ? Patient is on 40 mg of lisinopril held given patient worsening kidney function ? 04/20/2025; patient antihypertensives on hold given patient relatively low blood pressure 8. Hypothyroidism ? Patient is on levothyroxine home dose continued 9. Class II obesity ? Complicating care weight loss advised 10. Degenerative joint disease ? Pain meds as needed 11. Dyslipidemia ?Patient is on statin therapy, continued at home dose 12. Diabetes mellitus type 2 ? Patient is on metformin held on admission placed on Accu-Cheks AC and at bedtime with sliding scale coverage 13. Bilateral lower extremity venous insufficiency Manage patient to follow-up with PCP for outpatient management 14. Suspected pneumonia with Klebsiella pneumonia ? Patient has elevated WBC count with a left shift. CT of the chest obtained the day prior demonstrated infiltrate at the bases of both lungs. Patient subsequently started on ceftriaxone and azithromycin. Also did send for sputum and blood culture ? 04/19/2025; sputum cultures came out positive for Klebsiella pneumonia remains on appropriate antibiotic therapy 15. Physical deconditioning ? Requested for PT OT eval and social problems specialist to assist with discharge planning ? 04/25/2025; did have a discussion with patient about possibility of being to a shelter facility for possible rehab ? 04/26/2025; patient did not meet criteria to be discharged to a shelter facility. Plan therefore will be to discharge patient home with home health 16. DVT prophylaxis ? Patient is on apixaban held prior to patient thoracocentesis resumed subsequently Time spent in the patient's overall evaluation,decision-making process, review of diagnostic data, adjustment of management, discussion with other providers, nursing nursing, ancillary staff as well as patient's family involved in patient's care documentation, 35 Charges/Coding Visit Charges Inpatient E&M: 15605 Subs Hosp L2 04/26/25 0956 <Electronically signed by Amado Bailey MD> Cosigner Signature (if applicable): CC: ~ Signed [facility] Work Phone: 1(340) 488-667106-06-2025 [facility]06-05-2025 Telephone encounter Note* Telephone Encounter - Meena Guerra MD - 04/25/2025 6:03 PM EDT Called patient and Son Called a couple times but non one answered the phone . RegardsMeena MD [facility]06-05-2025 Miscellaneous Notes* Telephone Encounter - Meena Guerra MD - 04/25/2025 6:03 PM EDT Called patient and Son Called a couple times but non one answered the phone . RegardsMeena MD * Telephone Encounter - Mckayla Card RN - 04/24/2025 9:29 AM EDT Pts son in law called in and reports Pt is still in the hospital from last Tuesday. He states they are going to go down to Medical Records to sign release of records and have them fax over the records from Pts hospital visit to Dr Guerra's office. He then wanted to give Dr Guerra an update on the Pt.He states she had a Thoracentesis Tuesday to clear out the buildup of fluid. He reports she filled back up and Tuesday she had he second Thoracentesis. They are going to do an x-ray on to see how she is doing with possible discharge home or to a [facility], to see why the fluid keeps building up on her lungs due to an underlying cardiac issue. They would like provider to call Pts cell phone back to discuss with family. Please call and advise. Mckayla Card RN documented in this encounterA[facility] Progress note Author Amado Bailey [facility] Note Date/Time April 25, 2025 11:56 am [facility] Medical Records Department [address] [place] [address] Progress Note - Hospitalist 04/25/25 1149 MR#: [id number] Acct: [id number] Name: JESS JACKSON Rep #:[id number] : 1940 84 From: Amado Bailey MD PCP: Ras Childress Status:ADM IN Location: [place] [address] Reason for Visit Reason for Visit: Diagnoses Unspecified atrial fibrillation (04/16/25) Unspecified diastolic (congestive) heart failure (04/16/25) Acute on chronic diastolic (congestive) heart failure (04/16/25) Pleural effusion, not elsewhere classified (04/16/25) Acute kidney failure, unspecified (04/16/25) Personal history of other endocrine, nutritional and metabolic disease (04/16/25) Subjective Subjective Chest x-ray this morning did demonstrate congestive heart failure with bilateralpleural effusions and bibasilar atelectasis. Patient continues to improve clinically and has been weaned off oxygen. Did discuss patient about therapy regarding her physical deconditioning Objective Data Objective Data Vital Signs: Vital Signs Temp Pulse Resp BP Pulse Ox O2 Del Method O2 Flow Rate 98.0 F 104 H 17 108/78 96 Room Air 2 04/25/25 09:45 04/25/25 09:45 04/25/25 09:45 04/25/25 09:45 04/25/25 09:45 04/25/25 09:45 04/23/25 07:47 FiO2 30 04/21/25 15:03 Oxygen Flow Rate (L/min) 2 Oxygen Delivery Method Room Air Weight: 93.8 kg Body Mass Index (BMI) 39.0 Intake & Output: Intake and Output for Last 24 Hours 04/23/25 04/24/25 04/25/25 23:59 23:59 23:59 Intake Total 490 / 490 50 / 50 50 / 50 Output Total 1250 / 1750 700 / 700 Balance -760 / -1260 -650 / -650 50 / 50 Lab / Micro Data 04/25/25 05:04 04/25/25 05:04 Labs: Laboratory Results - last 24 hr 04/24/25 12:31: POC Glucose 129 H 04/24/25 13:45: WBC Cancelled, Corrected WBC Cancelled, RBC Cancelled, Hgb Cancelled, Hct Cancelled, MCV Cancelled, MCH Cancelled, MCHC Cancelled, RDW Std Deviation Cancelled, RDW Coeff of Marcial Cancelled, Plt Count Cancelled, MPV Cancelled, Diff Path Review Cancelled, Sodium Cancelled, Potassium Cancelled, Chloride Cancelled, Carbon Dioxide Cancelled, Anion Gap Cancelled, BUN Cancelled, Creatinine Cancelled, Estim Creat Clear Calc Cancelled, Est GFR (MDRD) Non-Af Cancelled, BUN/Creatinine Ratio Cancelled, Glucose Cancelled, Calcium Cancelled, Phosphorus Cancelled, Magnesium Cancelled, Total Bilirubin Cancelled, AST Cancelled, ALT Cancelled, Alkaline Phosphatase Cancelled, Total Protein Cancelled, Albumin Cancelled, Globulin Cancelled, Albumin/Globulin RatioCancelled 04/24/25 14:50: WBC 11.7 H, RBC 3.73 L, Hgb 10.3 L, Hct 33.1 L, MCV 88.7, MCH 27.6, MCHC 31.1 L, RDW Std Deviation 52.6 H, RDW Coeff of Marcial 16.2 H, Plt Count 299, MPV 9.9, Immature Gran % (Auto) 0.900, Neut % (Auto) 81.6 H, Lymph % (Auto)7.3 L, Berks % (Auto) 7.1, Eos % (Auto) 2.7, Baso % (Auto) 0.4, Absolute Neuts (auto) 9.6 H, Absolute Lymphs (auto) 0.86, Nucleated RBC % 0.2, Sodium 140, Potassium 3.9, Chloride 107, Carbon Dioxide 24.6, Anion Gap 9, BUN 48 H, Creatinine 1.14, Estim Creat Clear Calc 37.82 L, Est GFR (MDRD) Non-Af 47 L, BUN/Creatinine Ratio 41.7 H, Glucose 169 H, Calcium 8.6, Phosphorus 2.2 L, Magnesium 2.1 04/24/25 17:07: POC Glucose 134 H 04/24/25 21:27: POC Glucose 142 H 04/25/25 05:04: WBC 11.1 H, RBC 3.54 L, Hgb 9.9 L, Hct 31.4 L, MCV 88.7, MCH 28.0, MCHC 31.5 L, RDW Std Deviation 52.8 H, RDW Coeff of Marcial 16.2 H, Plt Count 295, MPV 10.1, Immature Gran % (Auto) 0.600, Neut % (Auto) 83.6 H, Lymph % (Auto) 6.8 L, Berks % (Auto) 5.9, Eos % (Auto) 2.7, Baso % (Auto) 0.4, Absolute Neuts (auto) 9.2 H, Absolute Lymphs (auto) 0.75 L, Nucleated RBC % 0, Sodium 141, Potassium 3.9, Chloride 107, Carbon Dioxide 25.0, Anion Gap 9, BUN 45 H, Creatinine 1.13, Estim Creat Clear Calc 38.04 L, Est GFR (MDRD) Non-Af 48 L, BUN/Creatinine Ratio 39.6 H, Glucose 150 H, Calcium 8.7 04/25/25 06:40: POC Glucose 139 H Micro: Microbiology 04/22/25 14:10 Fluid - Thoracentesis Fluid Gram Stain - Final 04/22/25 14:10 Fluid - Thoracentesis Fluid Body Fluid Culture - Preliminary No growth-Final to follow 04/22/25 14:10 Fluid - Thoracentesis Fluid Anaerobic Culture - Preliminary No growth in 48 hours. 04/18/25 10:50 Blood Culture (Wb) - Arm Right Blood Culture - Final No growth in 5 days. 04/18/25 11:00 Blood Culture (Wb) - Right Wrist Blood Culture - Final No growth in 5 days. 04/16/25 16:16 Sputum, Expectorated/Coughed Gram Stain - Final 04/16/25 16:16 Sputum, Expectorated/Coughed Respiratory Culture - Final Klebsiella pneumoniae sp pneum 04/18/25 10:51 Mucosa - Nasopharyngeal Respiratory Panel (PCR) - Final 04/18/25 10:00 Urine Catheter - Ray Legionella Antigen - Final 04/18/25 10:00 Urine Catheter - Ray Streptococcus pneumoniae Antigen (M - Final 04/18/25 10:51 Mucosa - Nasopharyngeal Coronavirus COVID-19 PCR - Final Radiography Diagnostic Testing: Radiology Impression Chest X-Ray 04/25/25 05:55 IMPRESSION: Congestive heart failure with bilateral pleural effusions and bibasilar atelectasis. Reading Location: [id number] Rhythm Strip Rhythm Strip: A-fib Rate: 125 Physical Exam Narrative GENERAL: Cooperative off oxygen HEENT: Atraumatic; normocephalic EYES; Anicteric, Normal Conjunctiva NECK; supple, normal thyroid, RESPIRATORY: Diminished to auscultation, CARDIOVASCULAR: Irregular S1-S2 but rate controlled GI: soft, normoactive bowel sounds, : No Renal angle tenderness; EXTREMITIES: Bipedal edema, no clubbing, MUSCULOSKELETAL: no muscle wasting NEURO: Awake; no lateralizing signs. SKIN: No Rash PSYCH; Flat affect Const alert and no apparent distress Constitutional Narrative: On oxygen. No respiratory distress. No conversational dyspnea. HEENT normocephalic and head/scalp atraumatic Eyes Eyes Narrative: No icterus. Glasses. Neck Neck Narrative: JVD. No thyromegaly. No lymphadenopathy. Resp Resp Narrative: Bibasilar crackles. Cardio regular rate and no murmurs GI normal to inspection, nondistended, normoactive bowel sounds and soft to palpation GI Narrative: Obese with pannus. Extremity Extremity Narrative: Bilateral tight lower extremity edema extending proximally upper thighs. Skin Skin Narrative: Chronic venous stasis changes to the lower extremities. Neuro Sensorium / Orientation: awake, alert and oriented to place Psych affect normal Assessment & Plan Assessment/Plan (1) (HFpEF) heart failure with preserved ejection fraction: QUALIFIERS: Heart failure chronicity: acute on chronic Qualified Code(s): I50.33 - Acute on chronic diastolic (congestive) heart failure (2) Pleural effusion: (3) FERMÍN (acute kidney injury): (4) Atrial fibrillation with rapid ventricular response: PLAN: Plan Patient is an 84-year-old lady with past medical history significant for paroxysmal A-fib who presented with progressive shortness of breath and assessment of acute congestive heart failure made admitted to monitored bed for further management 1. Acute on chronic congestive heart failure with preserved ejection fraction ? Patient admitted to monitored bed treatment initiated with strict input and output, daily weights, fluid restriction as well as diuretic therapy with furosemide drip. As part of patient's management 2D echo was ordered on admission demonstrated ejection fraction of 55-60 % and Severe biatrial enlargement. ? Patient is on furosemide drip however response to therapy not impressive. Consult placed to cardiology. Family request ? 04/19/2025; patient is on furosemide drip however appears not to be responding. Creatinine and BUN worsening. ? 04/20/2025; patient BUN and creatinine continues to worsen. Lasix drip held given patient being relatively hypotensive. ? 04/21/2025; patient furosemide discontinued started on Zaroxolyn ? 04/25/2025;Chest x-ray this morning did demonstrate congestive heart failure with bilateral pleural effusions and bibasilar atelectasis. Patient continues to improve clinically and has been weaned off oxygen. 2. Large right-sided pleural effusion ? CT of the chest obtained did show Large right pleural effusion with compressive atelectasis. Small left pleural effusion with compressive atelectasis.. An order was given for patient to undergo ultrasound-guided thoracocentesis as part of subsequent evaluation ordered pleural fluid studies including LDH WBC, and glucose levels ? 04/18/2025; patient ultrasound guided thoracocentesis centesis scheduled for 04/19/2025. ? 04/19/2025; patient scheduled to undergo ultrasound-guided paracentesis ? 04/20/2025: Patient underwent ultrasound-guided thoracocentesis on 04/19/2025 with 1350 mL of blood-tinged fluid aspirated sample sent to the lab for analysis.Patient was noted to be dyspneic earlier in the early hours of this a.m. patient placed on supplemental oxygen repeat x-ray ordered which did show reaccumulation of a moderate right pleural effusion again with adjacent right base passive collapse. No pneumothorax identified. Similar appearance of possible small left effusion and basilar atelectasis, passive collapse. ? 04/22/2025; repeat chest x-ray ordered for further evaluation ? 04/23/2025;Patient underwent repeat thoracocentesis the day prior1.5 L of fluid was taken out. Fluid analysis still consistent with transudate. Consult was placed to pulmonary medicine Case discussed with Dr. Wong. ? 04/24/2025Had a discussion with patient's daughter and son plan is to repeat imaging studies and if there is reaccumulation of the fluid consideration will be given to patient being transferred to a tertiary care center for possible pleurodesis ? 04/25/2022;Chest x-ray this morning did demonstrate congestive heart failure with bilateral pleural effusions and bibasilar atelectasis. Will hold off with further thoracocentesis. 3. Acute kidney injury ? Suspected to be secondary to hypoperfusion from patient congestive heart failure. Creatinine from 01/10/2025 was 1.07 creatinine on admission was 2.31. Patient kidney function actually did worsen with diuresis with creatinine bumping up to 2.62. Subsequently requested for kidney ultrasound and nephrologyconsultation obtained ? 04/18/2025; patient kidney function did worsen. Subsequently requested nephrology consultation as well as ordered kidney ultrasound. Repeat BMP ordered in a.m. for follow-up ? 04/19/2025; Patient kidney function continues to worsen with BUN of 108 and creatinine of 2.93. Consult has been placed to nephrology today prior renal ultrasound obtained came back unremarkable. Repeat BMP ordered for a.m. ? 04/20/2025; patient kidney function continues to worsen. Family to decide if they want to proceed with temporary dialysis. Had a discussion with patient [id number]. Patient is agreeable to temporary dialysis catheter for now.. Consult subsequently placed to general surgery Case discussed with Dr. Michael De Luna ? 04/21/2025; patient creatinine down to 1.98, BUN down to 95 ? 04/22/2025; BMP this morning reviewed. Significant improvement in creatinine which is down to 1.03. Repeat BMP ordered. ? 05/20/2025. Repeat BMP the day prior came back at 1.38, patient creatinine [place] down to 1.25 4. Paroxysmal atrial fibrillation ? Patient went into A-fib with RVR necessitating patient being started on Cardizem drip which is currently being titrated to keep heart rate less than 100 ? 04/20/2025 patient is on apixaban decision was made to hold in anticipation of possible temporary dialysis catheter placement ? 04/21/2025; patient apixaban placed on hold. Started on p.o. Cardizem and metoprolol given her heart rates going up ? 04/22/2025; patient heart rates control still not optimal continues to remain labile ? 04/23/2025; patient went into A-fib with RVR necessitating patient being startedon amiodarone drip after bolus was given. Heart rate remains uncontrolled. Cardiology was reconsulted ? 04/24/2025 7Patient was switched from IV amiodarone to p.o. amiodarone the day prior. Heart rate control still not optimal. ? 04/25/2025; patient creatinine down to 1.1. 5. Acute hypoxic respiratory failure ? Secondary to congestive heart failure and large right sided pleural effusion. Patient was placed on supplemental oxygen in addition to bronchodilator treatment. ? 04/18/2025; patient to be assessed for home oxygen prior to this ? 04/20/2025; did ask patient about possible intubation if warranted. Patient isnot show how she wants to proceed and wants to have a discussion with the familyprior to making a decision ? 04/21/2025; patient had to be placed on noninvasive ventilation via Airvo after going into respiratory distress with significant hypoxia. ? 04/22/2025; patient has been weaned off Airvo now on nasal 6. Hypotension ? 04/20/2025 patient diuretic therapy as well as antihypertensive and antiarrhythmic's?Cardizem and metoprolol held. Resuscitated with IV fluid. An order was given for patient to be transferred to the intensive care unit. Did place an order for PICC line and order written for norepinephrine if patient does not respond to IV fluid resuscitation ? 04/21/2025; patient did respond to IV fluids ? 04/25/2025; patient blood pressure still soft 7. Essential hypertension ? Patient is on 40 mg of lisinopril held given patient worsening kidney function ? 04/20/2025; patient antihypertensives on hold given patient relatively low blood pressure 8. Hypothyroidism ? Patient is on levothyroxine home dose continued 9. Class II obesity ? Complicating care weight loss advised 10. Degenerative joint disease ? Pain meds as needed 11. Dyslipidemia ?Patient is on statin therapy, continued at home dose 12. Diabetes mellitus type 2 ? Patient is on metformin held on admission placed on Accu-Cheks AC and at bedtime with sliding scale coverage 13. Bilateral lower extremity venous insufficiency Manage patient to follow-up with PCP for outpatient management 14. Suspected pneumonia with Klebsiella pneumonia ? Patient has elevated WBC count with a left shift. CT of the chest obtained the day prior demonstrated infiltrate at the bases of both lungs. Patient subsequently started on ceftriaxone and azithromycin. Also did send for sputum and blood culture ? 04/19/2025; sputum cultures came out positive for Klebsiella pneumonia remains on appropriate antibiotic therapy 15. Physical deconditioning ? Requested for PT OT eval and social problems specialist to assist with discharge planning ? 04/25/2025; did have a discussion with patient about possibility of being to a shelter facility for possible rehab 16. DVT prophylaxis ? Patient is on apixaban held prior to patient thoracocentesis resumed subsequently Time spent in the patient's overall evaluation,decision-making process, review of diagnostic data, adjustment of management, discussion with other providers, nursing nursing, ancillary staff as well as patient's family involved in patient's care documentation, 36 Charges/Coding Visit Charges Inpatient E&M: 11594 Subs Hosp L2 04/25/25 1156 <Electronically signed by Amado Bailey MD> Cosigner Signature (if applicable): CC: ~ Signed [facility] Work Phone: [phone]) 799-862106-05-2025 Progress note Author Tyree Sosa [facility] Note Date/Time April 25, 2025 10:03 am [facility] Medical Records Department [address] [place] [address] Progress Note - Nephrology 04/22/25 1142 MR#: [id number] Acct: [id number] Name: JESS JACKSON Rep #:[id number] : 1940 84 From: [place] [employer] PCP: Ras Childress Status:ADM IN Location: [place] [id number] Subjective Subjective Sitting up in bed. Denies any complaints. Going for thoracentesis tomorrow. Objective Data Objective Data Vital Signs: Vital Signs Temp Pulse Resp BP Pulse Ox O2 Del Method O2 Flow Rate 97.0 F L 122 H 16 105/63 98 High Flow 4 04/22/25 08:00 04/22/25 11:06 04/22/25 11:06 04/22/25 11:06 04/22/25 11:06 04/22/25 11:06 04/22/25 11:26 FiO2 30 04/21/25 15:03 Oxygen Flow Rate (L/min) 4 Oxygen Delivery Method High Flow Weight: 95.3 kg Body Mass Index (BMI) 39.6 Intake & Output: Intake and Output for Last 24 Hours 04/20/25 04/21/25 04/22/25 23:59 23:59 23:59 Intake Total 4155 / 4155 6425 / 6425 2170 / 2170 Output Total 2400 / 2400 2450 / 2450 1300 / 1300 Balance 1755 / 1755 3975 / 3975 870 / 870 Lab / Micro Data 04/22/25 05:40 04/22/25 07:37 Labs: Laboratory Results - last 24 hr 04/21/25 11:48: POC Glucose 152 H 04/21/25 16:06: POC Glucose 160 H 04/21/25 21:39: POC Glucose 144 H 04/22/25 05:40: WBC 6.6, RBC 3.06 L, Hgb 8.7 L, Hct 28.4 L, MCV 92.8, MCH 28.4, MCHC 30.6 L, RDW Std Deviation 55.7 H, RDW Coeff of Marcial 16.4 H, Plt Count 183, MPV 9.8, Immature Gran % (Auto) 0.500, Neut % (Auto) 82.0 H, Lymph % (Auto) 8.5 L, [place] % (Auto) 7.3, Eos % (Auto) 1.5, Baso % (Auto) 0.2, Absolute Neuts (auto)5.4, Absolute Lymphs (auto) 0.56 L, Nucleated RBC % 0, Sodium 144, Potassium 2.9L, Chloride 118 H, Carbon Dioxide 19.1 L, Anion Gap 7, BUN 58 H, Creatinine 1.03, Estim Creat Clear Calc 42.11 L, Est GFR (MDRD) Non-Af 53 L, BUN/CreatinineRatio 56.6 H, Glucose 126 H, Calcium 6.3 L* 04/22/25 07:37: Sodium 142, Potassium 4.2, Chloride 110 H, Carbon Dioxide 21.8, Anion Gap 11, BUN 70 H, Creatinine 1.38 H, Estim Creat Clear Calc 31.43 L, Est GFR (MDRD) Non-Af 38 L, BUN/Creatinine Ratio 50.8 H, Glucose 152 H, Calcium 8.3,Lactate Dehydrogenase 231, Total Protein 5.9 04/22/25 09:50: PT 17.5 H, INR 1.4, APTT 28.0 Micro: Microbiology 04/16/25 16:16 Sputum, Expectorated/Coughed Gram Stain - Final 04/16/25 16:16 Sputum, Expectorated/Coughed Respiratory Culture - Final Klebsiella pneumoniae sp pneum 04/18/25 11:00 Blood Culture (Wb) - Right Wrist Blood Culture - Preliminary No growth in 48 hours. 04/18/25 10:50 Blood Culture (Wb) - Arm Right Blood Culture - Preliminary No growth in 48 hours. 04/18/25 10:51 Mucosa - Nasopharyngeal Respiratory Panel (PCR) - Final 04/18/25 10:00 Urine Catheter - Ray Legionella Antigen - Final 04/18/25 10:00 Urine Catheter - Ray Streptococcus pneumoniae Antigen (M - Final 04/18/25 10:51 Mucosa - Nasopharyngeal Coronavirus COVID-19 PCR - Final Radiography Diagnostic Testing: Radiology Impression Chest X-Ray 04/22/25 07:35 IMPRESSION: 1. Increase in the right pleural effusion since the previous study. 2. Can not exclude a superimposed infiltrate particularly in the right upper lobe. 3. Small left pleural effusion. 4. Stable cardiomegaly. Reading Location: [place] [address] Physical Exam Narrative Alert awake oriented x 3 no obvious distress s1s2 no murmurs lungs clear with coarse productive cough. On O2 NC. abdomen soft +++ edema ray + Assessment & Plan Assessment/Plan (1) FERMÍN (acute kidney injury): PLAN: Baseline creatinine is around 1.1. Previous admission creatinine was close to baseline. This admission creatinine is around 2.6-2.8. Renal ultrasound without any hydronephrosis. Urine analysis shows 2+ protein. HbA1c 6.9. Urine PCR 0.9 gm She has significant volume overload in the form of lower extremity edema, repeated pleural effusions. Surprisingly echocardiogram showed ejection fraction normal, presumably this is diastolic dysfunction. However BNP last admission was only around 230. This admission proBNP is only twice the normal limits. Due to proteinuria, renal failure, repeated pleural effusions, sent serology to rule out autoimmune conditions. Lasix drip stopped on Tuesday and added metolazone. Surprisingly urine output actually picked up with metolazone and creatinine is better. Blood pressure about the same. Dr. Garcia had discussion yesterday with patient and family andall agreed that improvement in creatinine a good thing, most likely because Lasix has been stopped. Unable to explain the increase in urine output with lessLasix, possibly she had some Lasix resistance prior to that. It was also agreedthat patient needed to be on at least some Lasix for maintenance diuresis, therefore lasix 40mg IV BID added back yesterday, and to continue same dose metolazone. Some confusion with nursing with lasix if patient should or shouldn't be on it, it was stopped this am. I had discussion with patient, her and son regarding patient needing to be on a diuretic. Patient and both stated they feel lasix not working for patient, patient feels it iswhat made her kidney function worsen and therefore she does not want to take lasix (patient states she was on lasix at home before coming to hospital, even doubled the dose with no improvement in edema and kidney function worsened; she also stated she was on HCTZ in past). We will keep her on metolazone today, she is scheduled for thoracentesis later today. Urine output today so far 1.3L. Patient aware kidney function has improved, SCr 1.38. Potassium and bicarb normal. Labs ordered for am. Assessment and plan reviewed with Dr. Garcia. 04/22/25 1154 <Electronically signed by Tyree ALVARADO> Cosigner Signature (if applicable): 04/25/25 1003 <Electronically signed by Melissa Garcia MD> CC: ~ Signed [facility] Work Phone: 1(516) 911-621206-05-2025 Progress note Author Tyree Sosa [facility] Note Date/Time April 25, 2025 10:03 am [facility] Medical Records Department [address] [place] [address] Progress Note - Nephrology 04/23/25 1100 MR#: [id number] Acct: [id number] Name: MANUELJESS ALIX Rep #:[id number] : 1940 84 From: [place] [employer] PCP: Ras Childress Status:ADM IN Location: [place] [address] Subjective Subjective Patient sitting in chair. Denies any shortness of breath. States she feels swelling to legs continues to improve. , daughter and son at bedside Objective Data Objective Data Vital Signs: Vital Signs Temp Pulse Resp BP Pulse Ox O2 Del Method O2 Flow Rate 97.5 F L 136 H 18 118/48 L 98 Room Air 2 04/23/25 08:00 04/23/25 08:00 04/23/25 08:00 04/23/25 08:00 04/23/25 08:00 04/23/25 08:00 04/23/25 07:47 FiO2 30 04/21/25 15:03 Oxygen Flow Rate (L/min) 2 Oxygen Delivery Method Room Air Weight: 93.1 kg Body Mass Index (BMI) 38.7 Intake & Output: Intake and Output for Last 24 Hours 04/21/25 04/22/25 04/23/25 23:59 23:59 23:59 Intake Total 6425 / 6425 2728 / 2728 200 / 200 Output Total 2450 / 2450 3550 / 3550 Balance 3975 / 3975 -822 / -822 200 / 200 Lab / Micro Data 04/22/25 05:40 04/23/25 03:55 Labs: Laboratory Results - last 24 hr 04/19/25 06:20: Total Protein (PEP) 6.4, Albumin (PEP) 2.7 L, Globulin (PEP) 3.7, Albumin/Globulin (PEP) 0.7, Krlad-8-Pgpggitui 0.5 H, Bmsxa-8-Arpsjyvpj 1.1 H, Beta Globulins 0.8, Gamma Globulins 1.4, M-Qasim Comment:, PEP Note Comment, PEP Interpretation Comment, GIRMA Screen Negative, c-ANCA Antibody <1:20, Atypicalp- ANCA 1:20 H, p-ANCA Antibody <1:20, Complement C3 127 04/22/25 12:21: POC Glucose 141 H 04/22/25 14:10: Fluid Source THORACENTESIS, Fluid Color YELLOW, Fluid AppearanceCLOUDY, Fluid WBC 0.785, Fluid RBC 0.011, Fluid Tot Cell Count 0.824 H, Fld Polynuclear WBCs # 0.209, Fld Polynuclear WBCs % 26.6, Fluid Mononuclear WBCs 0.576, Fld Mononuclear WBCs % 73.4, Fluid Neutrophils 35, Fluid Lymphocytes 58, Fluid Monocytes 3, Fluid Macrophages 63, Fld Mesothelial Cells 4, Fl PathologistComment May follow, Fluid Glucose 164, Fluid Total Protein 2.6, Fluid LDH 114, Fluid Comment 2 SEE COMMENT 04/22/25 17:06: POC Glucose 130 H 04/22/25 21:33: POC Glucose 147 H 04/23/25 03:55: Sodium 142, Potassium 3.9, Chloride 108, Carbon Dioxide 23.2, Anion Gap 10, BUN 60 H, Creatinine 1.25 H, Estim Creat Clear Calc 34.70 L, Est GFR (MDRD) Non-Af 42 L, BUN/Creatinine Ratio 48.2 H, Glucose 162 H, Calcium 8.7 04/23/25 07:50: POC Glucose 146 H Micro: Microbiology 04/22/25 14:10 Fluid - Thoracentesis Fluid Gram Stain - Final 04/22/25 14:10 Fluid - Thoracentesis Fluid Body Fluid Culture - Preliminary No growth-Final to follow 04/16/25 16:16 Sputum, Expectorated/Coughed Gram Stain - Final 04/16/25 16:16 Sputum, Expectorated/Coughed Respiratory Culture - Final Klebsiella pneumoniae sp pneum 04/18/25 11:00 Blood Culture (Wb) - Right Wrist Blood Culture - Preliminary No growth in 48 hours. 04/18/25 10:50 Blood Culture (Wb) - Arm Right Blood Culture - Preliminary No growth in 48 hours. 04/18/25 10:51 Mucosa - Nasopharyngeal Respiratory Panel (PCR) - Final 04/18/25 10:00 Urine Catheter - Ray Legionella Antigen - Final 04/18/25 10:00 Urine Catheter - Ray Streptococcus pneumoniae Antigen (M - Final 04/18/25 10:51 Mucosa - Nasopharyngeal Coronavirus COVID-19 PCR - Final Radiography Diagnostic Testing: Radiology Impression Thoracentesis Ultrasound 04/22/25 09:09 IMPRESSION: Successful right thoracentesis under ultrasound guidance. The patient toleratedthe procedure well. No post thoracentesis fluid is documented. Specimens sent to the laboratory for further testing. Thank you for this referral. Reading Location: [facility] Chest X-Ray 04/22/25 14:20 IMPRESSION: 1. Marked decrease in the right pleural effusion following thoracentesis. 2. No evidence of post thoracentesis pneumothorax. Reading Location: [place] [address] Rhythm Strip Rhythm Strip: A-fib Rate: 115 Physical Exam Narrative Alert awake oriented x 3 no obvious distress s1s2 no murmurs lungs clear anteriorly and posteriorly. On room air abdomen soft +++ edema, improving Assessment & Plan Assessment/Plan (1) FERMÍN (acute kidney injury): PLAN: Baseline creatinine is around 1.1. Previous admission creatinine was close to baseline. This admission creatinine is around 2.6-2.8. Renal ultrasound without any hydronephrosis. Urine analysis shows 2+ protein. HbA1c 6.9. Urine PCR 0.9 gm She has significant volume overload in the form of lower extremity edema, repeated pleural effusions. Surprisingly echocardiogram showed ejection fraction normal, presumably this is diastolic dysfunction. However BNP last admission was only around 230. This admission proBNP is only twice the normal limits. Due to proteinuria, renal failure, repeated pleural effusions, sent serology to rule out autoimmune conditions. Lasix drip stopped on Tuesday and added metolazone. Urine output actually pickedup with metolazone and creatinine is better. Blood pressure about the same. Patient is currently on metolazone 5 mg daily. Intermittent twice daily Lasix was stopped on Tuesday. Urine output picking up, 2 L urine output documented foryesterday. Patient also had thoracentesis 1.5 L fluid removed yesterday. Weights are down. Kidney function stable, today creatinine 1.25/BUN 60, this ispossibly baseline for patient. Serum creatinine peak was 2.9 on April 19, BUN [id number]. We will keep her on metolazone today. Potassium and bicarb normal. Labs ordered for am. Discussed with patient and her family today importance of dailyweights. low sodium diet and restricting fluids to around 1.5 to no more than 2 L/day once at home. Patient also to follow-up with nephrology at discharge. Assessment and plan reviewed with Dr. Garcia. 04/23/25 1125 <Electronically signed by Tyree ALVARADO> Cosigner Signature (if applicable): 04/25/25 1003 <Electronically signed by Melissa Garcia MD> CC: ~ Signed [facility] Work Phone: 1(518) 246-468906-05-2025 Radiology Diagnostic study [facility] Work Phone: 1(131) 669-335306-04-2025 Progress note Author Roger Murphy [facility] Note Date/Time April 24, 2025 3:00p [facility] Medical Records Department [address] [place] [address] Progress Note - Mold Blower 04/24/25 1257 MR#: [id number] Acct: [id number] Name: JESS JACKSON Rep #:[id number] : 1940 84 From: Roger Chi PCP: Ras Childress Status:ADM IN [facility] Data Objective Data Vital Signs: Vital Signs Last response 3 Temperature 36.6 C 04/24/25 08:00 Temperature Source Temporal 04/24/25 08:00 Pulse Rate 141 H 04/24/25 12:41 Pulse Strength Weak (1+) 04/23/25 21:41 Respiratory Rate 29 H 04/24/25 11:00 Respiratory Effort Normal 04/24/25 04:00 Respiratory Depth Normal 04/24/25 04:00 Respiratory Pattern Normal 04/24/25 04:00 Blood Pressure 115/71 04/24/25 11:00 Blood Pressure Mean 85 04/24/25 11:00 Blood Pressure Source Monitor 04/24/25 11:00 Blood Pressure Position Semi-Fowlers 04/24/25 11:00 Blood Pressure Location Left Arm 04/24/25 11:00 Pulse Ox 97 04/24/25 11:00 Oxygen Delivery Method Room Air 04/24/25 11:00 Oxygen Flow Rate (L/min) 2 04/23/25 07:47 Fraction of Inspired Oxygen (FIO2) 30 04/21/25 15:03 I&O: I&O Last 24 Hours 3 04/23/25 04/24/25 04/24/25 23:59 11:59 23:59 Intake Total 240 / 490 Output Total 1250 / 1750 700 / 700 Balance -1010 / -1260 -700 / -700 I&O: Total Stay 3 04/16/25 11:09 thru 04/24/25 06:30 Intake Total 17102.89 Output Total 95315 Balance 3004.89 Current Meds Ordered / Administered: Current meds ordered / Administered 3 Generic Name Dose Route Start Last Admin Trade Name Freq PRN Reason Stop Dose Admin Acetaminophen 650 mg 04/16/25 14:36 04/18/25 21:42 Acetaminophen 325 Mg Tablet PO 650 mg Q6H PRN PRN Administration Pain 1-10 Or Fever >100.7 Albuterol Sulfate 2.5 mg 04/17/25 11:22 04/18/25 08:35 Albuterol 2.5 Mg/3 Ml Vial.Neb. INHALATION 2.5 mg Q2H PRN PRN Administration SOB &/OR WHEEZING Amiodarone HCl 400 mg 04/23/25 10:00 04/24/25 10:28 Amiodarone 200 Mg Tablet PO 400 mg BID SERG Administration Atorvastatin Calcium 10 mg 04/16/25 22:00 04/23/25 21:06 Atorvastatin Calcium 10 Mg Tablet PO 10 mg QHS SERG Administration Diltiazem HCl 60 mg 04/24/25 12:00 04/24/25 12:41 Diltiazem 60 Mg Tablet PO 60 mg Q6 SERG Administration Protocol Gabapentin 300 mg 04/17/25 22:00 04/23/25 21:05 Gabapentin 300 Mg Capsule PO 300 mg QHS SERG Administration Glucagon 1 mg 04/16/25 14:36 Glucagon 1 Mg/Ml Syringe IM X1 PRN HYPOGLYCEMIA Protocol Guaifenesin 600 mg 04/17/25 00:35 04/24/25 10:28 Guaifenesin 600 Mg Tablet PO 600 mg BID SERG Administration Guaifenesin 10 ml 04/24/25 03:54 04/24/25 04:03 Guaifenesin 10 Ml Udc (200mg/10ml) PO 10 ml Q4H PRN PRN Administration COUGH/CONGESTION Dextrose 250 mls @ 0 mls/hr 04/16/25 14:36 Dextrose 10%-Water IV .Q0M PRN HYPOGLYCEMIA Protocol As Directed Ceftriaxone Sodium 2 gm/ 50 mls @ 100 mls/hr 04/18/25 10:00 04/24/25 10:26 Sodium Chloride IV 04/25/25 10:01 100 mls/hr Q24 SERG Administration Sodium Chloride 250 mls @ 15 mls/hr 04/19/25 11:21 IV .[id number] PRN Saline Flush Sodium Chloride 250 mls @ 15 mls/hr 04/19/25 11:21 IV .[id number] PRN Additional IVPB Infusion Insulin Human Lispro 0 unit 04/16/25 16:00 04/24/25 12:33 Insulin Lispro 100 Unit/Ml Insuln.Pen SC Not Given ACHS [facility] Protocol Levothyroxine Sodium 100 mcg 04/17/25 06:00 04/24/25 06:08 Levothyroxine 100 Mcg Tablet PO 100 mcg DAILY@0600 SERG Administration Loratadine 10 mg 04/16/25 15:10 Loratadine 10 Mg Tablet PO DAILY PRN allergy symptoms Metolazone 5 mg 04/19/25 12:00 04/24/25 10:28 Metolazone 5 Mg Tablet PO 5 mg DAILY [facility] Administration Protocol Metoprolol Tartrate 50 mg 04/24/25 12:00 04/24/25 12:41 Metoprolol Tartrate 50 Mg Tablet PO 50 mg Q6 [facility] Administration Protocol Multivitamins/Minerals 1 tablet 04/17/25 08:00 04/24/25 08:04 Multivitamins,Ther W-Minerals Tablet PO 1 tablet BREAKFAST SERG Administration Ondansetron HCl 4 mg 04/16/25 20:42 04/19/25 11:16 Ondansetron 4 Mg/2 Ml Vial IV 4 mg Q6H PRN PRN Administration NAUSEA/VOMITING Pentoxifylline 400 mg 04/16/25 14:36 04/24/25 06:10 Pentoxifylline 400 Mg Tablet PO Not Given TID SERG Polyethylene Glycol 17 gm 04/23/25 03:51 Polyethylene Glycol 3350 17 Gm Packet PO DAILY PRN PRN CONSTIPATION Sodium Chloride 10 - 40 ml 04/16/25 14:43 04/24/25 10:27 0.9% Saline Lock 10 Ml Syringe IV 10 ml UD PRN Administration SALINE FLUSH Sodium Chloride 10 - 40 ml 04/19/25 11:21 0.9% Saline Lock 10 Ml Syringe IV UD PRN SALINE FLUSH Lab / Micro Data 04/22/25 05:40 04/23/25 03:55 Labs: Laboratory Results - last 24 hr 04/23/25 16:31: POC Glucose 128 H 04/23/25 21:04: POC Glucose 125 H 04/24/25 08:05: POC Glucose 128 H Micro: Microbiology 04/22/25 14:10 Fluid - Thoracentesis Fluid Gram Stain - Final 04/22/25 14:10 Fluid - Thoracentesis Fluid Body Fluid Culture - Preliminary No growth-Final to follow 04/22/25 14:10 Fluid - Thoracentesis Fluid Anaerobic Culture - Preliminary No growth in 48 hours. 04/18/25 10:50 Blood Culture (Wb) - Arm Right Blood Culture - Final No growth in 5 days. 04/18/25 11:00 Blood Culture (Wb) - Right Wrist Blood Culture - Final No growth in 5 days. Rhythm Strip Rhythm Strip: A-fib Rate: 125 Assessment and Plan . Assessment and plan: HPI Patient seen and examined Chart and data reviewed She is breathing RA comfortably at rest HR 100-120 BPM, irregular No new lab data EXAM GEN NAD VS as above HEENT o/p clear NECK obese COR irreg CHEST diminished ABD soft EXT minimal edema SKIN w/d KAMILA NF ASSESSMENT/PLAN 1. Dyspnea / hypoxemia 2. Decompensated CHF 3. AF w/ tachycardia 4. DM / obesity -supplemental O2 as needed -(-) fluid balance -HR control -consider stopping ABX -A/C deferred to cardiology -would repeat chemistry and NT-p-BNP Critical Care Time: 50 minutes The entirety of this encounter was done via Telemedicine 04/24/25 1500 <Electronically signed by Roger Murphy MD> Cosigner Signature (if applicable): CC: ~ Signed [facility] Work Phone: 1(121) 647-339906-04-2025 Progress note Author Kayla Fields [facility] Note Date/Time April 24, 2025 11:00 am [facility] Medical Records Department [address] [place] [address] Progress Note - Cardiology 04/24/25 1037 MR#: [id number] Acct: [id number] Name: JESS JACKSON Rep #:[id number] : 1940 84 From: Kayla Fields MD PCP: Ras Childress Status:ADM IN Location: ICU ICU05-1 Subjective Subjective Patient's heart rate continues to be elevated. She remains in atrial fibrillation and has been in atrial fibrillation since December 2024 documented. Historically in her home environment she was asymptomatic prior to this infectious process. Objective Data Vital Signs: Vital Signs Temp Pulse Resp BP Pulse Ox O2 Del Method O2 Flow Rate 97.6 F L 111 H 20 H 112/88 H 97 Room Air 2 04/24/25 04:00 04/24/25 07:00 04/24/25 07:00 04/24/25 07:00 04/24/25 07:55 04/24/25 07:55 04/23/25 07:47 FiO2 30 04/21/25 15:03 Oxygen Flow Rate (L/min) 2 Oxygen Delivery Method Room Air Weight: 207 lb 14.334 oz Body Mass Index (BMI) 39.2 Intake & Output: Intake and Output for Last 24 Hours 04/22/25 04/23/25 04/24/25 23:59 23:59 23:59 Intake Total 2728 / 2728 490 / 490 Output Total 3550 / 3550 1250 / 1750 700 / 700 Balance -822 / -822 -760 / -1260 -700 / -700 Lab / Micro Data 04/22/25 05:40 04/23/25 03:55 Labs: Laboratory Results - last 24 hr 04/23/25 12:04: POC Glucose 165 H 04/23/25 16:31: POC Glucose 128 H 04/23/25 21:04: POC Glucose 125 H 04/24/25 08:05: POC Glucose 128 H Micro: Microbiology 04/22/25 14:10 Fluid - Thoracentesis Fluid Gram Stain - Final 04/22/25 14:10 Fluid - Thoracentesis Fluid Body Fluid Culture - Preliminary No growth-Final to follow 04/18/25 10:50 Blood Culture (Wb) - Arm Right Blood Culture - Final No growth in 5 days. 04/18/25 11:00 Blood Culture (Wb) - Right Wrist Blood Culture - Final No growth in 5 days. Rhythm Strip Rhythm Strip: A-fib Rate: 125 Cardiology Labs/Tests Rhythm: EKG: ECHO: Stress Test: Cardiac Cath: PCI: CT Surgery: Holter monitor: EPS: PPM: CXR: Chest CT Scan: Physical Exam Const alert and oriented x3 HEENT normocephalic Eyes EOMs intact bilaterally Resp normal respiratory effort Auscultation: diminished lung sounds bilateral lower Cardio Rate: tachycardic Rhythm: abnormal rhythm irregularly irregular Heart Sounds: S1 normal and S2 normal; Negative for click, gallop or murmur Extremity General Extremity: edema bilateral lower extremity Details: trace Neuro Neuro Narrative: Alert and oriented x 3 Psych mental status grossly normal Assessment & Plan Assessment/Plan (1) (HFpEF) heart failure with preserved ejection fraction: QUALIFIERS: Heart failure chronicity: acute on chronic Qualified Code(s): I50.33 - Acute on chronic diastolic (congestive) heart failure PLAN: Patient carries a history of heart failure preserved ejection fraction. Since admission she has had 2 thoracenteses done. She actually has been diagnosed with Klebsiella pneumonia and he but the thoracentesis fluid did not grow any bacteria. Her blood cultures have been negative as well. The patient continues to be tachycardic in atrial fibrillation. We will continue to adjust medical therapy to try and control her heart rate. (2) FERMÍN (acute kidney injury): PLAN: Creatinine has dropped back to 1.25 today. This is managed by the primaryservice. (3) Atrial fibrillation with rapid ventricular response: PLAN: The patient has a history of a dilated left atrium and is unlikely would be able to maintain sinus rhythm with cardioversion given the fact she has been in it for going on 6 months now. Will continue to try and rate control her and she should be reinstituted on Eliquis when appropriate. Indolar creatinine is improved to 1.25 today the fact it has been vacillating and labile I would not recommend that we decrease her Eliquis dose to 2.5 mg twice daily when it is reinstituted. Will increase Cardizem to 60 mg every 6 hours and metoprolol to 50 mg every 6 hours. PLAN: Plan 1. Will add additional diltiazem and metoprolol for better rate control. 2. Will need to monitor the patient closely for blood pressure response to the increase Cardizem and metoprolol. 3. Dr. Verduzco will be available tomorrow if further assistance is needed. 4. Long-term plan would be to treat the patient with Eliquis at 2.5 mg twice daily and rate control her atrial fibrillation. If she is symptomatic or unwilling or unable to control her rate would have to consider EP evaluation forpossible ablation and pacer implantation. 5. Patient should follow-up in the [facility] 7 to 10 days after discharge. 04/24/25 1100 <Electronically signed by Kayla Fields MD> Cosigner Signature (if applicable): CC: ~ Signed [facility] Work Phone: [phone]) 685-914806-04-2025 Progress note Author Amado Bailey [facility] Note Date/Time April 24, 2025 8:03a m [facility] Medical Records Department [address] [place] [address] Progress Note - Hospitalist 04/24/25705 MR#: [id number] Acct: [id number] Name: JESS JACKSON Rep #:[id number] : 1940 84 From: Amado Bailey MD PCP: Ras Childress Status:ADM IN [facility] Reason for Visit Reason for Visit: Diagnoses Unspecified atrial fibrillation (04/16/25) Unspecified diastolic (congestive) heart failure (04/16/25) Acute on chronic diastolic (congestive) heart failure (04/16/25) Pleural effusion, not elsewhere classified (04/16/25) Acute kidney failure, unspecified (04/16/25) Personal history of other endocrine, nutritional and metabolic disease (04/16/25) Subjective Subjective Patient was switched from IV amiodarone to p.o. amiodarone the day prior. Heartrate control still not optimal. Had a discussion with patient's daughter and son plan is to repeat imaging studies and if there is reaccumulation of the fluid consideration will be given to patient being transferred to a tertiary care center for possible pleurodesis Objective Data Objective Data Vital Signs: Vital Signs Temp Pulse Resp BP Pulse Ox O2 Del Method O2 Flow Rate 97.6 F L 111 H 20 H 112/88 H 96 Room Air 2 04/24/25 04:00 04/24/25 07:00 04/24/25 07:00 04/24/25 07:00 04/24/25 07:00 04/24/25 07:00 04/23/25 07:47 FiO2 30 04/21/25 15:03 Oxygen Flow Rate (L/min) 2 Oxygen Delivery Method Room Air Weight: 94.3 kg Body Mass Index (BMI) 39.2 Intake & Output: Intake and Output for Last 24 Hours 04/22/25 04/23/25 04/24/25 23:59 23:59 23:59 Intake Total 2728 / 2728 490 / 490 Output Total 3550 / 3550 1250 / 1750 700 / 700 Balance -822 / -822 -760 / -1260 -700 / -700 Lab / Micro Data 04/22/25 05:40 04/23/25 03:55 Labs: Laboratory Results - last 24 hr 04/23/25 07:50: POC Glucose 146 H 04/23/25 12:04: POC Glucose 165 H 04/23/25 16:31: POC Glucose 128 H 04/23/25 21:04: POC Glucose 125 H Micro: Microbiology 04/18/25 10:50 Blood Culture (Wb) - Arm Right Blood Culture - Final No growth in 5 days. 04/18/25 11:00 Blood Culture (Wb) - Right Wrist Blood Culture - Final No growth in 5 days. 04/22/25 14:10 Fluid - Thoracentesis Fluid Gram Stain - Final 04/22/25 14:10 Fluid - Thoracentesis Fluid Body Fluid Culture - Preliminary No growth-Final to follow 04/16/25 16:16 Sputum, Expectorated/Coughed Gram Stain - Final 04/16/25 16:16 Sputum, Expectorated/Coughed Respiratory Culture - Final Klebsiella pneumoniae sp pneum 04/18/25 10:51 Mucosa - Nasopharyngeal Respiratory Panel (PCR) - Final 04/18/25 10:00 Urine Catheter - Ray Legionella Antigen - Final 04/18/25 10:00 Urine Catheter - Ray Streptococcus pneumoniae Antigen (M - Final 04/18/25 10:51 Mucosa - Nasopharyngeal Coronavirus COVID-19 PCR - Final Rhythm Strip Rhythm Strip: A-fib Rate: 115 Physical Exam Narrative GENERAL: Appears fatigued on nasal cannula HEENT: Atraumatic; normocephalic EYES; Anicteric, Normal Conjunctiva NECK; supple, normal thyroid, RESPIRATORY: Diminished to auscultation, CARDIOVASCULAR: Irregular S1-S2 but rate controlled GI: soft, normoactive bowel sounds, : No Renal angle tenderness; EXTREMITIES: Bipedal edema, no clubbing, MUSCULOSKELETAL: no muscle wasting NEURO: Awake; no lateralizing signs. SKIN: No Rash PSYCH; Flat affect Assessment & Plan Assessment/Plan (1) (HFpEF) heart failure with preserved ejection fraction: QUALIFIERS: Heart failure chronicity: acute on chronic Qualified Code(s): I50.33 - Acute on chronic diastolic (congestive) heart failure (2) Pleural effusion: (3) FERMÍN (acute kidney injury): (4) Atrial fibrillation with rapid ventricular response: PLAN: Plan Patient is an 84-year-old lady with past medical history significant for paroxysmal A-fib who presented with progressive shortness of breath and assessment of acute congestive heart failure made admitted to monitored bed for further management 1. Acute on chronic congestive heart failure with preserved ejection fraction ? Patient admitted to monitored bed treatment initiated with strict input and output, daily weights, fluid restriction as well as diuretic therapy with furosemide drip. As part of patient's management 2D echo was ordered on admission demonstrated ejection fraction of 55-60 % and Severe biatrial enlargement. ? Patient is on furosemide drip however response to therapy not impressive. Consult placed to cardiology. Family request ? 04/19/2025; patient is on furosemide drip however appears not to be responding. Creatinine and BUN worsening. ? 04/20/2025; patient BUN and creatinine continues to worsen. Lasix drip held given patient being relatively hypotensive. ? 04/21/2025; patient furosemide discontinued started on Zaroxolyn 2. Large right-sided pleural effusion ? CT of the chest obtained did show Large right pleural effusion with compressive atelectasis. Small left pleural effusion with compressive atelectasis.. An order was given for patient to undergo ultrasound-guided thoracocentesis as part of subsequent evaluation ordered pleural fluid studies including LDH WBC, and glucose levels ? 04/18/2025; patient ultrasound guided thoracocentesis centesis scheduled for 04/19/2025. ? 04/19/2025; patient scheduled to undergo ultrasound-guided paracentesis ? 04/20/2025: Patient underwent ultrasound-guided thoracocentesis on 04/19/2025 with 1350 mL of blood-tinged fluid aspirated sample sent to the lab for analysis.Patient was noted to be dyspneic earlier in the early hours of this a.m. patient placed on supplemental oxygen repeat x-ray ordered which did show reaccumulation of a moderate right pleural effusion again with adjacent right base passive collapse. No pneumothorax identified. Similar appearance of possible small left effusion and basilar atelectasis, passive collapse. ? 04/22/2025; repeat chest x-ray ordered for further evaluation ? 04/23/2025;Patient underwent repeat thoracocentesis the day prior1.5 L of fluid was taken out. Fluid analysis still consistent with transudate. Consult was placed to pulmonary medicine Case discussed with Dr. Wong. ? 04/24/2025Had a discussion with patient's daughter and son plan is to repeat imaging studies and if there is reaccumulation of the fluid consideration will be given to patient being transferred to a tertiary care center for possible pleurodesis 3. Acute kidney injury ? Suspected to be secondary to hypoperfusion from patient congestive heart failure. Creatinine from 01/10/2025 was 1.07 creatinine on admission was 2.31. Patient kidney function actually did worsen with diuresis with creatinine bumping up to 2.62. Subsequently requested for kidney ultrasound and nephrologyconsultation obtained ? 04/18/2025; patient kidney function did worsen. Subsequently requested nephrology consultation as well as ordered kidney ultrasound. Repeat BMP ordered in a.m. for follow-up ? 04/19/2025; Patient kidney function continues to worsen with BUN of 108 and creatinine of 2.93. Consult has been placed to nephrology today prior renal ultrasound obtained came back unremarkable. Repeat BMP ordered for a.m. ? 04/20/2025; patient kidney function continues to worsen. Family to decide if they want to proceed with temporary dialysis. Had a discussion with patient [id number]. Patient is agreeable to temporary dialysis catheter for now.. Consult subsequently placed to general surgery Case discussed with Dr. Michael De Luna ? 04/21/2025; patient creatinine down to 1.98, BUN down to 95 ? 04/22/2025; BMP this morning reviewed. Significant improvement in creatinine which is down to 1.03. Repeat BMP ordered. ? 05/20/2025. Repeat BMP the day prior came back at 1.38, patient creatinine [place] down to 1.25 4. Paroxysmal atrial fibrillation ? Patient went into A-fib with RVR necessitating patient being started on Cardizem drip which is currently being titrated to keep heart rate less than 100 ? 04/20/2025 patient is on apixaban decision was made to hold in anticipation of possible temporary dialysis catheter placement ? 04/21/2025; patient apixaban placed on hold. Started on p.o. Cardizem and metoprolol given her heart rates going up ? 04/22/2025; patient heart rates control still not optimal continues to remain labile ? 04/23/2025; patient went into A-fib with RVR necessitating patient being startedon amiodarone drip after bolus was given. Heart rate remains uncontrolled. Cardiology was reconsulted ? 04/24/2025 7Patient was switched from IV amiodarone to p.o. amiodarone the day prior. Heart rate control still not optimal. 5. Acute hypoxic respiratory failure ? Secondary to congestive heart failure and large right sided pleural effusion. Patient was placed on supplemental oxygen in addition to bronchodilator treatment. ? 04/18/2025; patient to be assessed for home oxygen prior to this ? 04/20/2025; did ask patient about possible intubation if warranted. Patient isnot show how she wants to proceed and wants to have a discussion with the familyprior to making a decision ? 04/21/2025; patient had to be placed on noninvasive ventilation via Airvo after going into respiratory distress with significant hypoxia. ? 04/22/2025; patient has been weaned off Airvo now on nasal 6. Hypotension ? 04/20/2025 patient diuretic therapy as well as antihypertensive and antiarrhythmic's?Cardizem and metoprolol held. Resuscitated with IV fluid. An order was given for patient to be transferred to the intensive care unit. Did place an order for PICC line and order written for norepinephrine if patient does not respond to IV fluid resuscitation ? 04/21/2025; patient did respond to IV fluids 7. Essential hypertension ? Patient is on 40 mg of lisinopril held given patient worsening kidney function ? 04/20/2025; patient antihypertensives on hold given patient relatively low blood pressure 8. Hypothyroidism ? Patient is on levothyroxine home dose continued 9. Class II obesity ? Complicating care weight loss advised 10. Degenerative joint disease ? Pain meds as needed 11. Dyslipidemia ?Patient is on statin therapy, continued at home dose 12. Diabetes mellitus type 2 ? Patient is on metformin held on admission placed on Accu-Cheks AC and at bedtime with sliding scale coverage 13. Bilateral lower extremity venous insufficiency Manage patient to follow-up with PCP for outpatient management 14. Suspected pneumonia with Klebsiella pneumonia ? Patient has elevated WBC count with a left shift. CT of the chest obtained the day prior demonstrated infiltrate at the bases of both lungs. Patient subsequently started on ceftriaxone and azithromycin. Also did send for sputum and blood culture ? 04/19/2025; sputum cultures came out positive for Klebsiella pneumonia remains on appropriate antibiotic therapy 15. Physical deconditioning ? Requested for PT OT eval and social problems specialist to assist with discharge planning 16. DVT prophylaxis ? Patient is on apixaban held prior to patient thoracocentesis resumed subsequently Time spent in the patient's overall evaluation,decision-making process, review of diagnostic data, adjustment of management, discussion with other providers, nursing nursing, ancillary staff as well as patient's family involved in patient's care documentation, 38 Charges/Coding Visit Charges Inpatient E&M: 12199 Subs Hosp L2 04/24/25 0803 <Electronically signed by Amado Bailey MD> Cosigner Signature (if applicable): CC: ~ Signed [facility] Work Phone: [phone]) [phone] Telephone encounter Note* Telephone Encounter - Mckayla Card RN - 04/24/2025 9:29 AM EDT Pts son in law called in and reports Pt is still in the hospital from last Tuesday. He states they are going to go down to Medical Records to sign release of records and have them fax over the records from Pts hospital visit to Dr Guerra's office. He then wanted to give Dr Guerra an update on the Pt.He states she had a Thoracentesis Tuesday to clear out the buildup of fluid. He reports she filled back up and Tuesday she had he second Thoracentesis. They are going to do an x-ray on to see how she is doing with possible discharge home or to a [facility], to see why the fluid keeps building up on her lungs due to an underlying cardiac issue. They would like provider to call Pts cell phone back to discuss with family. Please call and advise. Mckayla Crad RN [facility]06-03-2025 Progress note Author Mckayla [place] [facility] Note Date/Time April 23, 2025 10:53 am [facility] Medical Records Department [address] [place] [address] Progress Note - Surgery 04/23/25 1051 MR#: [id number] Acct: [id number] Name: JESS JACKSON Rep #:[id number] : 1940 84 From: Mckayla CEDEÑO PA-C PCP: Ras Childress Status:ADM IN Location: ICU ICU-1 Objective Data Objective Data Vital Signs: Vital Signs Temp Pulse Resp BP Pulse Ox O2 Del Method O2 Flow Rate 97.5 F L 136 H 18 118/48 L 98 Room Air 2 04/23/25 08:00 04/23/25 08:00 04/23/25 08:00 04/23/25 08:00 04/23/25 08:00 04/23/25 08:00 04/23/25 07:47 FiO2 30 04/21/25 15:03 Oxygen Flow Rate (L/min) 2 Oxygen Delivery Method Room Air Weight: 205 lb 4.006 oz Body Mass Index (BMI) 38.7 Intake & Output: Intake and Output for Last 24 Hours 04/21/25 04/22/25 04/23/25 23:59 23:59 23:59 Intake Total 6425 / 6425 2728 / 2728 200 / 200 Output Total 2450 / 2450 3550 / 3550 Balance 3975 / 3975 -822 / -822 200 / 200 Lab / Micro Data 04/22/25 05:40 04/23/25 03:55 Labs: Laboratory Results - last 24 hr 04/19/25 06:20: Total Protein (PEP) 6.4, Albumin (PEP) 2.7 L, Globulin (PEP) 3.7, Albumin/Globulin (PEP) 0.7, Mqgvo-1-Aurtfwwnu 0.5 H, Krqsq-1-Vjhjsotun 1.1 H, Beta Globulins 0.8, Gamma Globulins 1.4, M-Qasim Comment:, PEP Note Comment, PEP Interpretation Comment, GIRMA Screen Negative, c-ANCA Antibody <1:20, Atypicalp- ANCA 1:20 H, p-ANCA Antibody <1:20, Complement C3 127 04/22/25 12:21: POC Glucose 141 H 04/22/25 14:10: Fluid Source THORACENTESIS, Fluid Color YELLOW, Fluid AppearanceCLOUDY, Fluid WBC 0.785, Fluid RBC 0.011, Fluid Tot Cell Count 0.824 H, Fld Polynuclear WBCs # 0.209, Fld Polynuclear WBCs % 26.6, Fluid Mononuclear WBCs 0.576, Fld Mononuclear WBCs % 73.4, Fluid Neutrophils 35, Fluid Lymphocytes 58, Fluid Monocytes 3, Fluid Macrophages 63, Fld Mesothelial Cells 4, Fl PathologistComment May follow, Fluid Glucose 164, Fluid Total Protein 2.6, Fluid LDH 114, Fluid Comment 2 SEE COMMENT 04/22/25 17:06: POC Glucose 130 H 04/22/25 21:33: POC Glucose 147 H 04/23/25 03:55: Sodium 142, Potassium 3.9, Chloride 108, Carbon Dioxide 23.2, Anion Gap 10, BUN 60 H, Creatinine 1.25 H, Estim Creat Clear Calc 34.70 L, Est GFR (MDRD) Non-Af 42 L, BUN/Creatinine Ratio 48.2 H, Glucose 162 H, Calcium 8.7 04/23/25 07:50: POC Glucose 146 H Micro: Microbiology 04/22/25 14:10 Fluid - Thoracentesis Fluid Gram Stain - Final 04/22/25 14:10 Fluid - Thoracentesis Fluid Body Fluid Culture - Preliminary No growth-Final to follow 04/16/25 16:16 Sputum, Expectorated/Coughed Gram Stain - Final 04/16/25 16:16 Sputum, Expectorated/Coughed Respiratory Culture - Final Klebsiella pneumoniae sp pneum 04/18/25 11:00 Blood Culture (Wb) - Right Wrist Blood Culture - Preliminary No growth in 48 hours. 04/18/25 10:50 Blood Culture (Wb) - Arm Right Blood Culture - Preliminary No growth in 48 hours. 04/18/25 10:51 Mucosa - Nasopharyngeal Respiratory Panel (PCR) - Final 04/18/25 10:00 Urine Catheter - Ray Legionella Antigen - Final 04/18/25 10:00 Urine Catheter - Ray Streptococcus pneumoniae Antigen (M - Final 04/18/25 10:51 Mucosa - Nasopharyngeal Coronavirus COVID-19 PCR - Final Radiography Diagnostic Testing: Radiology Impression Thoracentesis Ultrasound 04/22/25 09:09 IMPRESSION: Successful right thoracentesis under ultrasound guidance. The patient toleratedthe procedure well. No post thoracentesis fluid is documented. Specimens sent to the laboratory for further testing. Thank you for this referral. Reading Location: [place] [address] Chest X-Ray 04/22/25 14:20 IMPRESSION: 1. Marked decrease in the right pleural effusion following thoracentesis. 2. No evidence of post thoracentesis pneumothorax. Reading Location: [place] [address] Rhythm Strip Rhythm Strip: A-fib Rate: 115 Assessment & Plan Assessment/Plan (1) FERMÍN (acute kidney injury): PLAN: I am following this patient in conjunction with Dr. Ramos in Dr. De Luna's absence. Patient's creatinine is 1.[address] Bailey, patient willnot be requiring dialysis at this time. No dialysis catheter is needed to be placed. We will sign off at this time. Please reach back to out to our service if needed. Thank you Charges/Coding Visit Charges Inpatient E&M: 84565 Subs Hosp L1 (no charge) 04/23/25 1053 <Electronically signed by Mckayla CEDEÑO PA-C> Cosigner Signature (if applicable): CC: ~ Signed [facility] Work Phone: 1(212) 823-309806-03-2025 Progress note Author Kayla Fields [facility] Note Date/Time April 23, 2025 9:19a m [facility] Medical Records Department [address] [place] [id number] Progress Note - Cardiology 04/23/25 0903 MR#: [id number] Acct: [id number] Name: JESS JACKSON Rep #:[id number] : 1940 84 From: Kayla Fields MD PCP: Ras Childress Status:ADM IN Location: ICU ICU05-1 Subjective Subjective Patient sitting up to the bedside in the chair eating breakfast. This is the first solid food that she is taking but she says she is tolerating it without incident. The patient did have an second successful right thoracentesis yesterday. Patient's heart rate has been in the 100?140 range intermittently. She was placed on IV amiodarone yesterday and that drip is discontinued now and we will switch her to p.o. amiodarone. The patient has been in atrial fibrillation at least since November or December 2024 documented. She also has a severely dilated left atrium making it unlikelywe would be able to maintain sinus rhythm. She has also been tolerating Eliquiswithout nuisance bleeding and really had no idea that she was in atrial fibrillation when she was hemodynamically stable and in her home environment doing her routine activities. Objective Data Vital Signs: Vital Signs Temp Pulse Resp BP Pulse Ox O2 Del Method O2 Flow Rate 97.5 F L 136 H 18 118/48 L 98 Room Air 2 04/23/25 08:00 04/23/25 08:00 04/23/25 08:00 04/23/25 08:00 04/23/25 08:00 04/23/25 08:00 04/23/25 07:47 FiO2 30 04/21/25 15:03 Oxygen Flow Rate (L/min) 2 Oxygen Delivery Method Room Air Weight: 205 lb 4.006 oz Body Mass Index (BMI) 38.7 Intake & Output: Intake and Output for Last 24 Hours 04/21/25 04/22/25 04/23/25 23:59 23:59 23:59 Intake Total 6425 / 6425 2728 / 2728 Output Total 2450 / 2450 3550 / 3550 Balance 3975 / 3975 -822 / -822 Lab / Micro Data Attestation: I reviewed the patient's lab results. 04/22/25 05:40 04/23/25 03:55 Labs: Laboratory Results - last 24 hr 04/19/25 06:20: Total Protein (PEP) 6.4, Albumin (PEP) 2.7 L, Globulin (PEP) 3.7, Albumin/Globulin (PEP) 0.7, Oggtb-7-Gckmqefhz 0.5 H, Alqmp-5-Exltcctpw 1.1 H, Beta Globulins 0.8, Gamma Globulins 1.4, M-Qasim Comment:, PEP Note Comment, PEP Interpretation Comment, GIRMA Screen Negative, c-ANCA Antibody <1:20, Atypicalp- ANCA 1:20 H, p-ANCA Antibody <1:20, Complement C3 127 04/22/25 07:37: Lactate Dehydrogenase 231, Total Protein 5.9 04/22/25 09:50: PT 17.5 H, INR 1.4, APTT 28.0 04/22/25 12:21: POC Glucose 141 H 04/22/25 14:10: Fluid Source THORACENTESIS, Fluid Color YELLOW, Fluid AppearanceCLOUDY, Fluid WBC 0.785, Fluid RBC 0.011, Fluid Tot Cell Count 0.824 H, Fld Polynuclear WBCs # 0.209, Fld Polynuclear WBCs % 26.6, Fluid Mononuclear WBCs 0.576, Fld Mononuclear WBCs % 73.4, Fluid Neutrophils 35, Fluid Lymphocytes 58, Fluid Monocytes 3, Fluid Macrophages 63, Fld Mesothelial Cells 4, Fl PathologistComment May follow, Fluid Glucose 164, Fluid Total Protein 2.6, Fluid LDH 114, Fluid Comment 2 SEE COMMENT 04/22/25 17:06: POC Glucose 130 H 04/22/25 21:33: POC Glucose 147 H 04/23/25 03:55: Sodium 142, Potassium 3.9, Chloride 108, Carbon Dioxide 23.2, Anion Gap 10, BUN 60 H, Creatinine 1.25 H, Estim Creat Clear Calc 34.70 L, Est GFR (MDRD) Non-Af 42 L, BUN/Creatinine Ratio 48.2 H, Glucose 162 H, Calcium 8.7 04/23/25 07:50: POC Glucose 146 H Micro: Microbiology 04/22/25 14:10 Fluid - Thoracentesis Fluid Gram Stain - Final 04/16/25 16:16 Sputum, Expectorated/Coughed Gram Stain - Final 04/16/25 16:16 Sputum, Expectorated/Coughed Respiratory Culture - Final Klebsiella pneumoniae sp pneum Rhythm Strip Rhythm Strip: A-fib Rate: 100 Cardiology Labs/Tests 04/22/25 09:50: PT 17.5 H, INR 1.4, APTT 28.0 04/23/25 03:55: Sodium 142, Potassium 3.9, Chloride 108, Carbon Dioxide 23.2, Anion Gap 10, BUN 60 H, Creatinine 1.25 H, Est GFR (MDRD) Non-Af 42 L, BUN/Creatinine Ratio 48.2 H, Glucose 162 H, Calcium 8.7 Rhythm: EKG: ECHO: Stress Test: Cardiac Cath: PCI: CT Surgery: Holter monitor: EPS: PPM: CXR: Chest CT Scan: Radiography Diagnostic Testing: Radiology Impression Thoracentesis Ultrasound 04/22/25 09:09 IMPRESSION: Successful right thoracentesis under ultrasound guidance. The patient toleratedthe procedure well. No post thoracentesis fluid is documented. Specimens sent to the laboratory for further testing. Thank you for this referral. Reading Location: [place] [address] Chest X-Ray 04/22/25 14:20 IMPRESSION: 1. Marked decrease in the right pleural effusion following thoracentesis. 2. No evidence of post thoracentesis pneumothorax. Reading Location: [place] [address] Physical Exam Const alert and oriented x3 HEENT normocephalic Eyes EOMs intact bilaterally Neck no JVD Resp normal respiratory effort Auscultation: crackles right base and diminished lung sounds left lower Cardio Rate: tachycardic Rhythm: abnormal rhythm irregularly irregular Heart Sounds: S1 normal and S2 normal; Negative for click, gallop or murmur Extremity Extremity Narrative: Compression devices present on both lower extremities. General Extremity: edema left upper extremity (On the dorsum of the hand distal to the IV insertion site.) Neuro Neuro Narrative: Alert and oriented x 3 Psych mental status grossly normal Assessment & Plan Assessment/Plan (1) (HFpEF) heart failure with preserved ejection fraction: QUALIFIERS: Heart failure chronicity: acute on chronic Qualified Code(s): I50.33 - Acute on chronic diastolic (congestive) heart failure PLAN: Patient required a second thoracentesis during this hospitalization. She had a similar presentation back in December 2024. EF is known to be in the 55-60% range on echocardiogram 04/16/25. Patient is being diuresed she does have acute kidney injury on presentation creatinine has improved since presentation. (2) Atrial fibrillation with rapid ventricular response: PLAN: Patient's heart rate remains elevated in atrial fibrillation around 100- 120 bpm. She does appear to be improving clinically. She is now off of IV amiodarone and will be switched to 400 mg twice daily. She is tolerating oral anticoagulation therapy without nuisance bleeding. To better control her heart rate will increase her metoprolol to tartrate to 25 mg Q6 with hold parameters for her blood pressure. It is highly unlikely we would be able to maintain sinus rhythm given the patient's markedly dilated leftatrium by echocardiogram and her known duration of atrial fibrillation being around 6 months. PLAN: Plan 1. Continue with oral anticoagulation and rate control for her atrial fibrillation. 2. Continue to monitor the renal function the Eliquis needs to be decreased to 2.5 mg twice daily when it is reinstituted. This is due to her renal function and age of 84. 3. I will continue to follow along with you from a cardiovascular perspective. Charges/Coding Visit Charges Inpatient E&M: 92712 Subs Hosp L2 04/23/25918 <Electronically signed by Kayla Fields MD> Cosigner Signature (if applicable): CC: ~ Signed [facility] Work Phone: 1(920) 337-345106-03-2025 Progress note Author Jae Wong [facility] Note Date/Time April 23, 2025 9:12a m [facility] Medical Records Department [address] [place] [address] Progress Note - Mold Blower 04/23/25905 MR#: [id number] Acct: [id number] Name: JESS JACKSON Rep #:[id number] : 1940 84 From: Jae Wong DO PCP: Ras Childress Status:ADM IN Location: ICU ICU05-1 Assessment & Plan Assessment/Plan (1) (HFpEF) heart failure with preserved ejection fraction: (2) Pleural effusion: PLAN: Plan RECOMMENDATIONS: 1. Supplemental oxygen, if needed, to maintain saturations at or above 90%. 2. Continue attempts at volume optimization with diuretics, as tolerated by hemodynamics and renal function. 3. Continue antimicrobials to complete 7 days of therapy. 4. Encourage incentive spirometer use and mobilize patient as tolerated. IMPRESSIONS: 1. Shortness of breath with hypoxemia Most likely related to decompensated heart failure with preserved ejection fraction. In addition, the patient was noted to have a sputum culture which waspositive for pansensitive Klebsiella. Accordingly, the patient will be continued on antimicrobials along with supplemental oxygen, if needed, to maintain saturations at or above 90%. Continue attempts at volume optimization with diuretics, as tolerated by hemodynamics and renal function. 2. Recurrent bilateral pleural effusions, right greater than left Most likely secondary to heart failure with preserved ejection fraction. The patient did have a thoracentesis in December 2024, which was transudative in nature. Repeat thoracentesis were completed on April 17 and again on April 22 with pleural fluid from the latter consistent with a transudate once again. Althoughpleural fluid cytology is pending, I do again suspect that this is related to the patient's underlying cardiac dysfunction. Ultimately, if it is confirmed that the patient has a recurrent effusion related to congestive heart failure that is refractory to the use of diuretics, she may require evaluation by thoracic surgery. 3. Acute kidney injury/paroxysmal atrial fibrillation/hypertension/hypothyroidism/obesity/diabetes mellitus Complicates care, management, recovery and prognosis. Will defer management of renal insufficiency to nephrology. Otherwise, continue supportive care as notedabove. This note was generated with [employer] dictation software. It may contain incorrectwords, spelling, and punctuation that were not noted in checking the note beforesigning. Subjective Subjective The patient was seen and examined at the bedside this morning. Events from the last 24 hours have been reviewed. The patient is currently afebrile, hemodynamically stable and maintaining appropriate oxygen saturations on room air. The patient again underwent thoracentesis yesterday with 1.5 L of fluid removed. The patient did report overall improvement in her breathing quality following the procedure. Objective Data Objective Data The patient's most recent lab work, culture data and imaging studies have all been personally reviewed. Vital Signs: Vital Signs Temp Pulse Resp BP Pulse Ox O2 Del Method O2 Flow Rate 97.5 F L 136 H 18 118/48 L 98 Room Air 2 04/23/25 08:00 04/23/25 08:00 04/23/25 08:00 04/23/25 08:00 04/23/25 08:00 04/23/25 08:00 04/23/25 07:47 FiO2 30 04/21/25 15:03 Oxygen Flow Rate (L/min) 2 Oxygen Delivery Method Room Air Weight: 205 lb 4.006 oz Body Mass Index (BMI) 38.7 Intake & Output: Intake and Output for Last 24 Hours 04/21/25 04/22/25 04/23/25 23:59 23:59 23:59 Intake Total 6425 / 6425 2728 / 2728 Output Total 2450 / 2450 3550 / 3550 Balance 3975 / 3975 -822 / -822 Lab / Micro Data Attestation: I reviewed the patient's lab results. 04/22/25 05:40 04/23/25 03:55 Labs: Laboratory Results - last 24 hr 04/19/25 06:20: Total Protein (PEP) 6.4, Albumin (PEP) 2.7 L, Globulin (PEP) 3.7, Albumin/Globulin (PEP) 0.7, Fjltw-1-Nobvwcxqm 0.5 H, Ngxxf-6-Opwxwcthk 1.1 H, Beta Globulins 0.8, Gamma Globulins 1.4, M-Qasim Comment:, PEP Note Comment, PEP Interpretation Comment, GIRMA Screen Negative, c-ANCA Antibody <1:20, Atypicalp- ANCA 1:20 H, p-ANCA Antibody <1:20, Complement C3 127 04/22/25 07:37: Lactate Dehydrogenase 231, Total Protein 5.9 04/22/25 09:50: PT 17.5 H, INR 1.4, APTT 28.0 04/22/25 12:21: POC Glucose 141 H 04/22/25 14:10: Fluid Source THORACENTESIS, Fluid Color YELLOW, Fluid AppearanceCLOUDY, Fluid WBC 0.785, Fluid RBC 0.011, Fluid Tot Cell Count 0.824 H, Fld Polynuclear WBCs # 0.209, Fld Polynuclear WBCs % 26.6, Fluid Mononuclear WBCs 0.576, Fld Mononuclear WBCs % 73.4, Fluid Neutrophils 35, Fluid Lymphocytes 58, Fluid Monocytes 3, Fluid Macrophages 63, Fld Mesothelial Cells 4, Fl PathologistComment May follow, Fluid Glucose 164, Fluid Total Protein 2.6, Fluid LDH 114, Fluid Comment 2 SEE COMMENT 04/22/25 17:06: POC Glucose 130 H 04/22/25 21:33: POC Glucose 147 H 04/23/25 03:55: Sodium 142, Potassium 3.9, Chloride 108, Carbon Dioxide 23.2, Anion Gap 10, BUN 60 H, Creatinine 1.25 H, Estim Creat Clear Calc 34.70 L, Est GFR (MDRD) Non-Af 42 L, BUN/Creatinine Ratio 48.2 H, Glucose 162 H, Calcium 8.7 04/23/25 07:50: POC Glucose 146 H Micro: Microbiology 04/22/25 14:10 Fluid - Thoracentesis Fluid Gram Stain - Final 04/16/25 16:16 Sputum, Expectorated/Coughed Gram Stain - Final 04/16/25 16:16 Sputum, Expectorated/Coughed Respiratory Culture - Final Klebsiella pneumoniae sp pneum 04/18/25 11:00 Blood Culture (Wb) - Right Wrist Blood Culture - Preliminary No growth in 48 hours. 04/18/25 10:50 Blood Culture (Wb) - Arm Right Blood Culture - Preliminary No growth in 48 hours. 04/18/25 10:51 Mucosa - Nasopharyngeal Respiratory Panel (PCR) - Final 04/18/25 10:00 Urine Catheter - Ray Legionella Antigen - Final 04/18/25 10:00 Urine Catheter - Ray Streptococcus pneumoniae Antigen (M - Final 04/18/25 10:51 Mucosa - Nasopharyngeal Coronavirus COVID-19 PCR - Final Radiography Diagnostic Testing: Radiology Impression Thoracentesis Ultrasound 04/22/25 09:09 IMPRESSION: Successful right thoracentesis under ultrasound guidance. The patient toleratedthe procedure well. No post thoracentesis fluid is documented. Specimens sent to the laboratory for further testing. Thank you for this referral. Reading Location: [place] [address] Chest X-Ray 04/22/25 14:20 IMPRESSION: 1. Marked decrease in the right pleural effusion following thoracentesis. 2. No evidence of post thoracentesis pneumothorax. Reading Location: [place] [address] Rhythm Strip Rhythm Strip: A-fib Rate: 115 Physical Exam Const alert, oriented x3 and no apparent distress Constitutional Narrative: Sitting in bedside recliner. Family is present at the bedside. General Appearance: cooperative HEENT normocephalic and head/scalp atraumatic Eyes PERRL, EOMs intact bilaterally and conjunctivae normal Neck supple General: trachea midline Chest inspection of chest normal Resp normal respiratory effort Auscultation: diminished lung sounds Cardio regular rate and regular rhythm GI normal to inspection, nondistended, normoactive bowel sounds Extremity no clubbing, cyanosis or edema Skin no rashes or lesions noted Neuro CN's II-XII intact bilaterally, moves all extremities and no focal motor deficits Psych cooperative and affect normal Charges/Coding Visit Charges Inpatient E&M: 74008 Subs Hosp L2 04/23/25 0912 <Electronically signed by Jae Wong DO> Cosigner Signature (if applicable): CC: ~ Signed [facility] Work Phone: 1(113) 423-859306-03-2025 Progress note Author Amado Bailey [facility] Note Date/Time April 23, 2025 7:58a m [facility] Medical Records Department [address] [place] [address] Progress Note - Hospitalist 04/23/25 0755 MR#: [id number] Acct: [id number] Name: JESS JACKSON Rep #:[id number] : 1940 84 From: Amado Bailey MD PCP: Ras Childress Status:ADM IN Location: ICU ICU05-1 Reason for Visit Reason for Visit: Diagnoses Unspecified atrial fibrillation (04/16/25) Unspecified diastolic (congestive) heart failure (04/16/25) Pleural effusion, not elsewhere classified (04/16/25) Acute kidney failure, unspecified (04/16/25) Personal history of other endocrine, nutritional and metabolic disease (04/16/25) Subjective Subjective Patient underwent repeat thoracocentesis the day prior1.5 L of fluid was taken out. Fluid analysis still consistent with transudate. Patient also went into A-fib with RVR and had to be started on amiodarone drip Objective Data Objective Data Vital Signs: Vital Signs Temp Pulse Resp BP Pulse Ox O2 Del Method O2 Flow Rate 97 F L 128 H 22 H 114/84 H 99 Nasal Cannula 2 04/23/25 04:00 04/23/25 07:00 04/23/25 07:00 04/23/25 07:00 04/23/25 07:47 04/23/25 07:47 04/23/25 07:47 FiO2 30 04/21/25 15:03 Oxygen Flow Rate (L/min) 2 Oxygen Delivery Method Nasal Cannula Weight: 93.1 kg Body Mass Index (BMI) 38.7 Intake & Output: Intake and Output for Last 24 Hours 04/21/25 04/22/25 04/23/25 23:59 23:59 23:59 Intake Total 6425 / 6425 2728 / 2728 Output Total 2450 / 2450 3550 / 3550 Balance 3975 / 3975 -822 / -822 Lab / Micro Data 04/22/25 05:40 04/23/25 03:55 Labs: Laboratory Results - last 24 hr 04/19/25 06:20: Total Protein (PEP) 6.4, Albumin (PEP) 2.7 L, Globulin (PEP) 3.7, Albumin/Globulin (PEP) 0.7, Lprdn-3-Gmjrqofmt 0.5 H, Sacza-5-Pijyzczhn 1.1 H, Beta Globulins 0.8, Gamma Globulins 1.4, M-Qasim Comment:, PEP Note Comment, PEP Interpretation Comment, GIRMA Screen Negative, c-ANCA Antibody <1:20, Atypicalp- ANCA 1:20 H, p-ANCA Antibody <1:20, Complement C3 127 04/22/25 07:37: Sodium 142, Potassium 4.2, Chloride 110 H, Carbon Dioxide 21.8, Anion Gap 11, BUN 70 H, Creatinine 1.38 H, Estim Creat Clear Calc 31.43 L, Est GFR (MDRD) Non-Af 38 L, BUN/Creatinine Ratio 50.8 H, Glucose 152 H, Calcium 8.3,Lactate Dehydrogenase 231, Total Protein 5.9 04/22/25 09:50: PT 17.5 H, INR 1.4, APTT 28.0 04/22/25 12:21: POC Glucose 141 H 04/22/25 14:10: Fluid Source THORACENTESIS, Fluid Color YELLOW, Fluid AppearanceCLOUDY, Fluid WBC 0.785, Fluid RBC 0.011, Fluid Tot Cell Count 0.824 H, Fld Polynuclear WBCs # 0.209, Fld Polynuclear WBCs % 26.6, Fluid Mononuclear WBCs 0.576, Fld Mononuclear WBCs % 73.4, Fluid Neutrophils 35, Fluid Lymphocytes 58, Fluid Monocytes 3, Fluid Macrophages 63, Fld Mesothelial Cells 4, Fl PathologistComment May follow, Fluid Glucose 164, Fluid Total Protein 2.6, Fluid LDH 114, Fluid Comment 2 SEE COMMENT 04/22/25 17:06: POC Glucose 130 H 04/22/25 21:33: POC Glucose 147 H 04/23/25 03:55: Sodium 142, Potassium 3.9, Chloride 108, Carbon Dioxide 23.2, Anion Gap 10, BUN 60 H, Creatinine 1.25 H, Estim Creat Clear Calc 34.70 L, Est GFR (MDRD) Non-Af 42 L, BUN/Creatinine Ratio 48.2 H, Glucose 162 H, Calcium 8.7 Micro: Microbiology 04/22/25 14:10 Fluid - Thoracentesis Fluid Gram Stain - Final 04/16/25 16:16 Sputum, Expectorated/Coughed Gram Stain - Final 04/16/25 16:16 Sputum, Expectorated/Coughed Respiratory Culture - Final Klebsiella pneumoniae sp pneum 04/18/25 11:00 Blood Culture (Wb) - Right Wrist Blood Culture - Preliminary No growth in 48 hours. 04/18/25 10:50 Blood Culture (Wb) - Arm Right Blood Culture - Preliminary No growth in 48 hours. 04/18/25 10:51 Mucosa - Nasopharyngeal Respiratory Panel (PCR) - Final 04/18/25 10:00 Urine Catheter - Ray Legionella Antigen - Final 04/18/25 10:00 Urine Catheter - Ray Streptococcus pneumoniae Antigen (M - Final 04/18/25 10:51 Mucosa - Nasopharyngeal Coronavirus COVID-19 PCR - Final Radiography Diagnostic Testing: Radiology Impression Chest X-Ray 04/22/25 07:35 IMPRESSION: 1. Increase in the right pleural effusion since the previous study. 2. Can not exclude a superimposed infiltrate particularly in the right upper lobe. 3. Small left pleural effusion. 4. Stable cardiomegaly. Reading Location: [place] [address] Thoracentesis Ultrasound 04/22/25 09:09 IMPRESSION: Successful right thoracentesis under ultrasound guidance. The patient toleratedthe procedure well. No post thoracentesis fluid is documented. Specimens sent to the laboratory for further testing. Thank you for this referral. Reading Location: [place] [address] Chest X-Ray 04/22/25 14:20 IMPRESSION: 1. Marked decrease in the right pleural effusion following thoracentesis. 2. No evidence of post thoracentesis pneumothorax. Reading Location: [place] [address] Rhythm Strip Rhythm Strip: A-fib Rate: 115 Physical Exam Narrative GENERAL: Appears fatigued on nasal cannula HEENT: Atraumatic; normocephalic EYES; Anicteric, Normal Conjunctiva NECK; supple, normal thyroid, RESPIRATORY: Diminished to auscultation, CARDIOVASCULAR: Irregular S1-S2 but rate controlled GI: soft, normoactive bowel sounds, : No Renal angle tenderness; EXTREMITIES: Bipedal edema, no clubbing, MUSCULOSKELETAL: no muscle wasting NEURO: Awake; no lateralizing signs. SKIN: No Rash PSYCH; Flat affect Const alert and no apparent distress Constitutional Narrative: On oxygen. No respiratory distress. No conversational dyspnea. HEENT normocephalic and head/scalp atraumatic Eyes Eyes Narrative: No icterus. Glasses. Neck Neck Narrative: JVD. No thyromegaly. No lymphadenopathy. Resp Resp Narrative: Bibasilar crackles. Cardio regular rate and no murmurs GI normal to inspection, nondistended, normoactive bowel sounds and soft to palpation GI Narrative: Obese with pannus. Extremity Extremity Narrative: Bilateral tight lower extremity edema extending proximally upper thighs. Skin Skin Narrative: Chronic venous stasis changes to the lower extremities. Neuro Sensorium / Orientation: awake, alert and oriented to place Psych affect normal Assessment & Plan Assessment/Plan (1) (HFpEF) heart failure with preserved ejection fraction: (2) Pleural effusion: (3) FERMÍN (acute kidney injury): (4) Atrial fibrillation with rapid ventricular response: PLAN: Plan Patient is an 84-year-old lady with past medical history significant for paroxysmal A-fib who presented with progressive shortness of breath and assessment of acute congestive heart failure made admitted to monitored bed for further management 1. Acute on chronic congestive heart failure with preserved ejection fraction ? Patient admitted to monitored bed treatment initiated with strict input and output, daily weights, fluid restriction as well as diuretic therapy with furosemide drip. As part of patient's management 2D echo was ordered on admission demonstrated ejection fraction of 55-60 % and Severe biatrial enlargement. ? Patient is on furosemide drip however response to therapy not impressive. Consult placed to cardiology. Family request ? 04/19/2025; patient is on furosemide drip however appears not to be responding. Creatinine and BUN worsening. ? 04/20/2025; patient BUN and creatinine continues to worsen. Lasix drip held given patient being relatively hypotensive. ? 04/21/2025; patient furosemide discontinued started on Zaroxolyn 2. Large right-sided pleural effusion ? CT of the chest obtained did show Large right pleural effusion with compressive atelectasis. Small left pleural effusion with compressive atelectasis.. An order was given for patient to undergo ultrasound-guided thoracocentesis as part of subsequent evaluation ordered pleural fluid studies including LDH WBC, and glucose levels ? 04/18/2025; patient ultrasound guided thoracocentesis centesis scheduled for 04/19/2025. ? 04/19/2025; patient scheduled to undergo ultrasound-guided paracentesis ? 04/20/2025: Patient underwent ultrasound-guided thoracocentesis on 04/19/2025 with 1350 mL of blood-tinged fluid aspirated sample sent to the lab for analysis.Patient was noted to be dyspneic earlier in the early hours of this a.m. patient placed on supplemental oxygen repeat x-ray ordered which did show reaccumulation of a moderate right pleural effusion again with adjacent right base passive collapse. No pneumothorax identified. Similar appearance of possible small left effusion and basilar atelectasis, passive collapse. ? 04/22/2025; repeat chest x-ray ordered for further evaluation ? 05/20/2025;Patient underwent repeat thoracocentesis the day prior1.5 L of fluidwas taken out. Fluid analysis still consistent with transudate. Consult was placed to pulmonary medicine Case discussed with Dr. Wong. 3. Acute kidney injury ? Suspected to be secondary to hypoperfusion from patient congestive heart failure. Creatinine from 01/10/2025 was 1.07 creatinine on admission was 2.31. Patient kidney function actually did worsen with diuresis with creatinine bumping up to 2.62. Subsequently requested for kidney ultrasound and nephrologyconsultation obtained ? 04/18/2025; patient kidney function did worsen. Subsequently requested nephrology consultation as well as ordered kidney ultrasound. Repeat BMP ordered in a.m. for follow-up ? 04/19/2025; Patient kidney function continues to worsen with BUN of 108 and creatinine of 2.93. Consult has been placed to nephrology today prior renal ultrasound obtained came back unremarkable. Repeat BMP ordered for a.m. ? 04/20/2025; patient kidney function continues to worsen. Family to decide if they want to proceed with temporary dialysis. Had a discussion with patient [id number]. Patient is agreeable to temporary dialysis catheter for now.. Consult subsequently placed to general surgery Case discussed with Dr. Michael De Luna ? 04/21/2025; patient creatinine down to 1.98, BUN down to 95 ? 04/22/2025; BMP this morning reviewed. Significant improvement in creatinine which is down to 1.03. Repeat BMP ordered. ? 05/20/2025. Repeat BMP the day prior came back at 1.38, patient creatinine [place] down to 1.25 4. Paroxysmal atrial fibrillation ? Patient went into A-fib with RVR necessitating patient being started on Cardizem drip which is currently being titrated to keep heart rate less than 100 ? 04/20/2025 patient is on apixaban decision was made to hold in anticipation of possible temporary dialysis catheter placement ? 04/21/2025; patient apixaban placed on hold. Started on p.o. Cardizem and metoprolol given her heart rates going up ? 04/22/2025; patient heart rates control still not optimal continues to remain labile ? 04/23/2025; patient went into A-fib with RVR necessitating patient being startedon amiodarone drip after bolus was given. Heart rate remains uncontrolled. Cardiology was reconsulted 5. Acute hypoxic respiratory failure ? Secondary to congestive heart failure and large right sided pleural effusion. Patient was placed on supplemental oxygen in addition to bronchodilator treatment. ? 04/18/2025; patient to be assessed for home oxygen prior to this ? 04/20/2025; did ask patient about possible intubation if warranted. Patient isnot show how she wants to proceed and wants to have a discussion with the familyprior to making a decision ? 04/21/2025; patient had to be placed on noninvasive ventilation via Airvo after going into respiratory distress with significant hypoxia. ? 04/22/2025; patient has been weaned off Airvo now on nasal 6. Hypotension ? 04/20/2025 patient diuretic therapy as well as antihypertensive and antiarrhythmic's?Cardizem and metoprolol held. Resuscitated with IV fluid. An order was given for patient to be transferred to the intensive care unit. Did place an order for PICC line and order written for norepinephrine if patient does not respond to IV fluid resuscitation ? 04/21/2025; patient did respond to IV fluids 7. Essential hypertension ? Patient is on 40 mg of lisinopril held given patient worsening kidney function ? 04/20/2025; patient antihypertensives on hold given patient relatively low blood pressure 8. Hypothyroidism ? Patient is on levothyroxine home dose continued 9. Class II obesity ? Complicating care weight loss advised 10. Degenerative joint disease ? Pain meds as needed 11. Dyslipidemia ?Patient is on statin therapy, continued at home dose 12. Diabetes mellitus type 2 ? Patient is on metformin held on admission placed on Accu-Cheks AC and at bedtime with sliding scale coverage 13. Bilateral lower extremity venous insufficiency Manage patient to follow-up with PCP for outpatient management 14. Suspected pneumonia with Klebsiella pneumonia ? Patient has elevated WBC count with a left shift. CT of the chest obtained the day prior demonstrated infiltrate at the bases of both lungs. Patient subsequently started on ceftriaxone and azithromycin. Also did send for sputum and blood culture ? 04/19/2025; sputum cultures came out positive for Klebsiella pneumonia remains on appropriate antibiotic therapy 15. Physical deconditioning ? Requested for PT OT eval and social problems specialist to assist with discharge planning 16. DVT prophylaxis ? Patient is on apixaban held prior to patient thoracocentesis resumed subsequently Time spent in the patient's overall evaluation,decision-making process, review of diagnostic data, adjustment of management, discussion with other providers, nursing nursing, ancillary staff as well as patient's family involved in patient's care documentation, 52 Charges/Coding Visit Charges Inpatient E&M: 06399 Subs Hosp L3 04/23/25 0758 <Electronically signed by Amado Bailey MD> Cosigner Signature (if applicable): CC: ~ Signed [facility] Work Phone: 1(854) 821-857106-02-2025 Progress note Author Kayla Fields [facility] Note Date/Time April 22, 2025 4:19p m [facility] Medical Records Department [address] [place] [address] Progress Note - Cardiology 04/22/25 1611 MR#: [id number] Acct: [id number] Name: JESS JACKSON Rep #:[id number] : 1940 84 From: Kayla Fields MD PCP: Ras Childress Status:ADM IN Location: ICU ICU05-1 Subjective Subjective Called about patient's heart rate being up in the 150 range with atrial fibrillation. She also was having thoracentesis today that with through over a liter of fluid from her right pleural space this was the second time she has hadthis done in the last 72 hours. The patient was reinstituted on amiodarone IV through the standard loading protocol. She also receives diltiazem 30 mg every 6 hours. She is on metoprolol tartrate 25 mg twice daily. Heart rate after reinstitution of amiodarone has dropped down in the 1 teens to 120 range. Blood pressure [id number]/90. Objective Data Vital Signs: Vital Signs Temp Pulse Resp BP Pulse Ox O2 Del Method O2 Flow Rate 96.7 F L 120 H 12 121/92 H 100 High Flow 4 04/22/25 12:23 04/22/25 15:00 04/22/25 15:00 04/22/25 15:00 04/22/25 15:00 04/22/25 15:00 04/22/25 15:00 FiO2 30 04/21/25 15:03 Oxygen Flow Rate (L/min) 4 Oxygen Delivery Method High Flow Weight: 210 lb 1.608 oz Body Mass Index (BMI) 39.6 Intake & Output: Intake and Output for Last 24 Hours 04/20/25 04/21/25 04/22/25 23:59 23:59 23:59 Intake Total 4155 / 4155 6425 / 6425 2528 / 2528 Output Total 2400 / 2400 2450 / 2450 2850 / 2850 Balance 1755 / 1755 3975 / 3975 -322 / -322 Lab / Micro Data Attestation: I reviewed the patient's lab results. 04/22/25 05:40 04/22/25 07:37 Labs: Laboratory Results - last 24 hr 04/19/25 06:20: Total Protein (PEP) 6.4, Albumin (PEP) 2.7 L, Globulin (PEP) 3.7, Albumin/Globulin (PEP) 0.7, Qrwqz-4-Fphglgfnf 0.5 H, Vwseh-0-Tglmrkyvb 1.1 H, Beta Globulins 0.8, Gamma Globulins 1.4, M-Qasim Comment:, PEP Note Comment, PEP Interpretation Comment, GIRMA Screen Negative, c-ANCA Antibody <1:20, Atypicalp- ANCA 1:20 H, p-ANCA Antibody <1:20, Complement C3 127 04/21/25 16:06: POC Glucose 160 H 04/21/25 21:39: POC Glucose 144 H 04/22/25 05:40: WBC 6.6, RBC 3.06 L, Hgb 8.7 L, Hct 28.4 L, MCV 92.8, MCH 28.4, MCHC 30.6 L, RDW Std Deviation 55.7 H, RDW Coeff of Marcial 16.4 H, Plt Count 183, MPV 9.8, Immature Gran % (Auto) 0.500, Neut % (Auto) 82.0 H, Lymph % (Auto) 8.5 L, Berks % (Auto) 7.3, Eos % (Auto) 1.5, Baso % (Auto) 0.2, Absolute Neuts (auto)5.4, Absolute Lymphs (auto) 0.56 L, Nucleated RBC % 0, Sodium 144, Potassium 2.9L, Chloride 118 H, Carbon Dioxide 19.1 L, Anion Gap 7, BUN 58 H, Creatinine 1.03, Estim Creat Clear Calc 42.11 L, Est GFR (MDRD) Non-Af 53 L, BUN/CreatinineRatio 56.6 H, Glucose 126 H, Calcium 6.3 L* 04/22/25 07:37: Sodium 142, Potassium 4.2, Chloride 110 H, Carbon Dioxide 21.8, Anion Gap 11, BUN 70 H, Creatinine 1.38 H, Estim Creat Clear Calc 31.43 L, Est GFR (MDRD) Non-Af 38 L, BUN/Creatinine Ratio 50.8 H, Glucose 152 H, Calcium 8.3,Lactate Dehydrogenase 231, Total Protein 5.9 04/22/25 09:50: PT 17.5 H, INR 1.4, APTT 28.0 04/22/25 12:21: POC Glucose 141 H 04/22/25 14:10: Fluid WBC 0.043, Fluid Tot Cell Count 0.050 H, Fld Polynuclear WBCs # 0.012, Fld Polynuclear WBCs % 27.9, Fluid Mononuclear WBCs 0.031, Fld Mononuclear WBCs % 72.1, Fluid Glucose 164, Fluid Total Protein 2.6, Fluid LDH 114 Micro: Microbiology 04/16/25 16:16 Sputum, Expectorated/Coughed Gram Stain - Final 04/16/25 16:16 Sputum, Expectorated/Coughed Respiratory Culture - Final Klebsiella pneumoniae sp pneum Rhythm Strip Rhythm Strip: A-fib Rate: 115 Cardiology Labs/Tests 04/22/25 05:40: WBC 6.6, RBC 3.06 L, Hgb 8.7 L, Hct 28.4 L, MCV 92.8, MCH 28.4, MCHC 30.6 L, Plt Count 183, MPV 9.8, Immature Gran % (Auto) 0.500, Neut % (Auto)82.0 H, Lymph % (Auto) 8.5 L, Berks % (Auto) 7.3, Eos % (Auto) 1.5, Baso % (Auto)0.2, Absolute Neuts (auto) 5.4, Nucleated RBC % 0, Sodium 144, Potassium 2.9 L, Chloride 118 H, Carbon Dioxide 19.1 L, Anion Gap 7, BUN 58 H, Creatinine 1.03, Est GFR (MDRD) Non-Af 53 L, BUN/Creatinine Ratio 56.6 H, Glucose 126 H, Calcium 6.3 L* 04/22/25 07:37: Sodium 142, Potassium 4.2, Chloride 110 H, Carbon Dioxide 21.8, Anion Gap 11, BUN 70 H, Creatinine 1.38 H, Est GFR (MDRD) Non-Af 38 L, BUN/Creatinine Ratio 50.8 H, Glucose 152 H, Calcium 8.3 04/22/25 09:50: PT 17.5 H, INR 1.4, APTT 28.0 Rhythm: EKG: ECHO: Stress Test: Cardiac Cath: PCI: CT Surgery: Holter monitor: EPS: PPM: CXR: Chest CT Scan: Radiography Diagnostic Testing: Radiology Impression Chest X-Ray 04/22/25 07:35 IMPRESSION: 1. Increase in the right pleural effusion since the previous study. 2. Can not exclude a superimposed infiltrate particularly in the right upper lobe. 3. Small left pleural effusion. 4. Stable cardiomegaly. Reading Location: [place] [address] Thoracentesis Ultrasound 04/22/25 09:09 IMPRESSION: Successful right thoracentesis under ultrasound guidance. The patient toleratedthe procedure well. No post thoracentesis fluid is documented. Specimens sent to the laboratory for further testing. Thank you for this referral. Reading Location: [place] [address] Chest X-Ray 04/22/25 14:20 IMPRESSION: 1. Marked decrease in the right pleural effusion following thoracentesis. 2. No evidence of post thoracentesis pneumothorax. Reading Location: [place] [address] Assessment & Plan Assessment/Plan (1) Atrial fibrillation with rapid ventricular response: PLAN: Patient's heart rate has improved with reinstitution of IV amiodarone. Wewill switch her over to p.o. amiodarone in combination with her metoprolol and Cardizem for rate control. The patient is not on anticoagulation therapy at this time due to the Eliquis being held for possible temporary catheter placement for dialysis. Her creatinine is improving but given her fluctuating creatinine status I would recommend that when Eliquis is reinstituted it be started at 2.5 mg twice daily. Will continue with attempting rate control with a combination of diltiazem and metoprolol as blood pressure and heart rate will tolerate we will try to wean off the IV amiodarone if we can get her heart rate under better control. PLAN: Plan 1. Continue IV amiodarone for loading dose. 2. Will monitor for alternative rate modulating drugs over the next 24-48 hours. 3. Recommend reinstituting Eliquis 2.5 mg twice daily when felt to be safe fromher procedures. Charges/Coding Visit Charges Inpatient E&M: 00248 Subs Hosp L1 04/22/25 1619 <Electronically signed by Kayla Fields MD> Camron Signature (if applicable): CC: ~ Signed [facility] Work Phone: 1(737) 104-161606-02-2025 Radiology Diagnostic study [facility]06-02-2025 Radiology Diagnostic study [facility]06-02-2025 Consult note Author Jae Wong [facility] Note Date/Time April 22, 2025 11:[address] [facility] Medical Records Department [facility] [place] [address] Consultation - Mold Blower 04/22/25 1001 MR#: [id number] Acct: [id number] Name: JESS JACKSON Rep #:[id number] : 1940 84 From: Jae Wong DO PCP: Ras Childress Status:ADM IN Location: ICU ICU-1 Assessment & Plan Assessment/Plan (1) (HFpEF) heart failure with preserved ejection fraction: (2) Pleural effusion: PLAN: Plan RECOMMENDATIONS: 1. Supplemental oxygen to maintain saturations at or above 90%. 2. Continue attempts at volume optimization with diuretics, as tolerated by hemodynamics and renal function. 3. Continue antimicrobials to complete 7 days of therapy. 4. Plan to repeat ultrasound-guided thoracentesis and resend pleural fluid for analysis. Orders have been placed accordingly. 5. Encourage incentive spirometer use and mobilize patient as tolerated. IMPRESSIONS: 1. Shortness of breath with hypoxemia Most likely related to decompensated heart failure with preserved ejection fraction. In addition, the patient was noted to have a sputum culture which waspositive for pansensitive Klebsiella. Accordingly, the patient will be continued on antimicrobials along with supplemental oxygen to maintain saturations at or above 90%. Continue attempts at volume optimization with diuretics, as tolerated by hemodynamics and renal function. 2. Recurrent bilateral pleural effusions, right greater than left Most likely secondary to heart failure with preserved ejection fraction. The patient did have a thoracentesis in December 2024, which was transudative in nature. Although the patient has undergone a repeat thoracentesis on April 17, serum LDH and total protein was not checked. Therefore it is not clear if this is a recurrent transudative effusion. Given that the patient's chest x-ray is demonstrating increasing size of the patient's right-sided effusion, I agree with repeating the ultrasound-guided thoracentesis and resending pleural fluid for analysis, as ordered. Ultimately, if it is proven that the patient has a recurrent effusion related to congestive heart failure that is refractory to theuse of diuretics, she may require evaluation by thoracic surgery. 3. Acute kidney injury/paroxysmal atrial fibrillation/hypertension/hypothyroidism/obesity/diabetes mellitus Complicates care, management, recovery and prognosis. Will defer management of renal insufficiency to nephrology. Otherwise, continue supportive care as notedabove. This note was generated with [employer] software. It may contain incorrectwords, spelling, and punctuation that were not noted in checking the note beforesigning. HPI Consult Data Date of Consult: 04/22/25 HPI Narrative Reason for Consultation: Recurrent pleural effusion HPI Narrative: The patient is an 84-year-old female, with a history as outlined below, who presented to the emergency department on April 16 with progressive dyspnea. The patient has a known history of paroxysmal atrial fibrillation and is currently followed by cardiology on an outpatient basis. The patient was hospitalized in December 2024 with atrial fibrillation with RVR with a large right-sided pleuraleffusion, for which she underwent ultrasound-guided thoracentesis with 1.3 L of fluid removed from the pleural space. The pleural fluid was noted to be transudative in nature. On presentation to the emergency department, the patient was documented to be afebrile but was notably tachycardic with a blood pressure of 93/66 mmHg. Laboratory evaluation revealed a white blood cell count of 13,000. Chemistry profile was notable for a potassium of 5.2, BUN of 66 and creatinine of 2.31. BNP was elevated at 4839. Chest imaging demonstrated bilateral pleural effusions. CT chest confirmed the presence of a large right and small left pleural effusion with compressive atelectasis. The patient was ultimately placed on diuretic therapy with consultation placed to cardiology and nephrology. A repeat ultrasound-guided thoracentesis of the right pleural space was completed on April 19 with 1.3 L of fluid removed. Unfortunately, serum LDH and total protein were never sent. Therefore, it is not clear as to whether this effusion represents a recurrent transudative effusion. It should be noted that the patient did have a positive sputum culture on April 16 which demonstrated pansensitive Klebsiella. The patient has been maintained on antimicrobials. Surface echocardiogram demonstrated an ejection fraction of 55 to 60% with severe left atrial dilation. [facility] Medical History Diabetes Kidney disease Non-smoker Venous (peripheral) insufficiency Atrial fibrillation CHF (congestive heart failure) Venous stasis ulcer Hyperpigmentation of skin Lipodermatosclerosis of both lower extremities Right leg swelling Left leg swelling Varicose veins of lower extremity with inflammation, 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 Chronic venous insufficiency Generalized osteoarthrosis History of right breast cancer Cardiomegaly Home Medications ?Medication ?Instructions ?Recorded ?Last Taken ?Type gabapentin 300 mg capsule 300 mg PO QHS Neuropathy 09/0604/15/25 History (Neurontin) levothyroxine 100 mcg tablet 100 mcg PO DAILY 09/30/17 04/16/25 History lisinopril 40 mg tablet 40 mg PO DAILY 09/30/17 05/05/15 History Held on 01/11/25. Instructions: Hold for SBP less than 130 mmHg. Follow with PCP and may decrease the dose to 10 mg daily. metformin 500 mg 24 hr 500 mg PO BID 09/30/1704/16 History tablet,extended release (gastric retention) pentoxifylline 400 mg 1 tab PO TID 09/30/17 History tablet,extended release acetaminophen 500 mg tablet 1,000 mg PO QHS PRN pain 0 01/08/25 Unknown History (Acetaminophen Extra Strength) cetirizine 10 mg tablet (24Hour 10 mg PO DAILY PRN all ergy symptoms 01/08/25 Unknown History Allergy) diosmin complex no.1 630 mg tablet 1 tab PO DAILY 12/2204/15/25 History (Vasculera) gsqnvylxiceb-axxuiaio-wmrcih 1 tab PO DAILY 01/08/25 0 04/16/25 History tablet (A Thru Z High Potency tablet) simvastatin 20 mg tablet 20 mg PO QHS 01/08/25 History apixaban 5 mg tablet (Eliquis) 5 mg PO BID 90 days #18 0 tabs 01/23/25 04/16/25 Rx diltiazem HCl 240 mg 240 mg PO DAILY 3 months #90 caps 01/23/25 04/16/25 Rx capsule,extended release 24 hr (Cardizem CD) furosemide 40 mg tablet 40 mg PO DAILY 3 months #90 tabs 01/23/25 04/15/25 Rx metoprolol tartrate 50 mg tablet 50 mg PO BID 90 days #180 tabs 01/23/25 04/16/25 Rx biotin 5,000 mcg sublingual tablet 5,000 mcg sublingua l DAILY 04/16/25 04/15/25 History semaglutide 0.25 mg or 0.5 mg (2 0.5 mg subcut QWEEK d iabetes 04/16/25 Unknown History mg/1.5 mL) subcutaneous pen injector (Ozempic) Allergy/AdvReac Type Severity Reaction Status Date / Time enoxaparin (From Lovenox) Allergy Unknown Verified 04/16/25 11:15 oxycodone Allergy Unknown Verified 04/16/25 11:15 Penicillins (PCN) Allergy Unknown Verified 04/16/25 11:15 Family History Other Heart disease Surgical History History of lumpectomy of right breast History of lumbar laminectomy History of total replacement of both hip joints History of total bilateral knee replacement (TKR) Social History Smoking Status: Never smoker ROS ROS Narrative 10 systems were reviewed with pertinent positives as noted in the HPI above. Physical Exam Const alert, oriented x3 and no apparent distress Constitutional Narrative: Sitting in bedside recliner. Family is present at the bedside. General Appearance: cooperative HEENT normocephalic and head/scalp atraumatic Eyes PERRL, EOMs intact bilaterally and conjunctivae normal Neck supple General: trachea midline Chest inspection of chest normal Resp normal respiratory effort Auscultation: diminished lung sounds Cardio regular rate and regular rhythm GI normal to inspection, nondistended, normoactive bowel sounds Extremity no clubbing, cyanosis or edema Skin no rashes or lesions noted Neuro CN's II-XII intact bilaterally, moves all extremities and no focal motor deficits Psych cooperative and affect normal Lab / Micro Data 04/22/25 05:40 04/22/25 07:37 Labs: Laboratory Results - last 24 hr 04/21/25 11:48: POC Glucose 152 H 04/21/25 16:06: POC Glucose 160 H 04/21/25 21:39: POC Glucose 144 H 04/22/25 05:40: WBC 6.6, RBC 3.06 L, Hgb 8.7 L, Hct 28.4 L, MCV 92.8, MCH 28.4, MCHC 30.6 L, RDW Std Deviation 55.7 H, RDW Coeff of Marcial 16.4 H, Plt Count 183, MPV 9.8, Immature Gran % (Auto) 0.500, Neut % (Auto) 82.0 H, Lymph % (Auto) 8.5 L, Berks % (Auto) 7.3, Eos % (Auto) 1.5, Baso % (Auto) 0.2, Absolute Neuts (auto)5.4, Absolute Lymphs (auto) 0.56 L, Nucleated RBC % 0, Sodium 144, Potassium 2.9L, Chloride 118 H, Carbon Dioxide 19.1 L, Anion Gap 7, BUN 58 H, Creatinine 1.03, Estim Creat Clear Calc 42.11 L, Est GFR (MDRD) Non-Af 53 L, BUN/CreatinineRatio 56.6 H, Glucose 126 H, Calcium 6.3 L* 04/22/25 07:37: Sodium 142, Potassium 4.2, Chloride 110 H, Carbon Dioxide 21.8, Anion Gap 11, BUN 70 H, Creatinine 1.38 H, Estim Creat Clear Calc 31.43 L, Est GFR (MDRD) Non-Af 38 L, BUN/Creatinine Ratio 50.8 H, Glucose 152 H, Calcium 8.3 Micro: Microbiology 04/16/25 16:16 Sputum, Expectorated/Coughed Gram Stain - Final 04/16/25 16:16 Sputum, Expectorated/Coughed Respiratory Culture - Final Klebsiella pneumoniae sp pneum Imaging Radiology Impression Chest X-Ray 04/22/25 07:35 IMPRESSION: 1. Increase in the right pleural effusion since the previous study. 2. Can not exclude a superimposed infiltrate particularly in the right upper lobe. 3. Small left pleural effusion. 4. Stable cardiomegaly. Reading Location: [place] [address] Charges/Coding Visit Charges Inpatient E&M: 71529 Init Hosp L3 04/22/25 1104 <Electronically signed by Jae Wong DO> Cosigner Signature (if applicable): CC: Dr. Ras Blas DO; Ras Childress~ Signed [facility] Work Phone: 1(934) 991-547006-02-2025 Progress note Author Amado Bailey [facility] Note Date/Time April 22, 2025 8:54a m [facility] Medical Records Department [address] [place] [address] Progress Note - Hospitalist 04/22/25 0707 MR#: [id number] Acct: [id number] Name: JESS JACKSON Rep #:[id number] : 1940 84 From: Amado Bailey MD PCP: Ras Childress Status:ADM IN Location: ICU ICU-1 Reason for Visit Reason for Visit: Diagnoses Unspecified atrial fibrillation (04/16/25) Unspecified diastolic (congestive) heart failure (04/16/25) Pleural effusion, not elsewhere classified (04/16/25) Acute kidney failure, unspecified (04/16/25) Personal history of other endocrine, nutritional and metabolic disease (04/16/25) Subjective Subjective Patient seen, patient has been weaned off Airvo. Diagnostic data at this a.m. significant for potassium of 2.9 patient creatinine is down to 1.08. Repeat BMPordered patient repeat labs demonstrated creatinine 1.38 and BUN of 70 with a potassium of 4.2 Objective Data Objective Data Vital Signs: Vital Signs Temp Pulse Resp BP Pulse Ox O2 Del Method O2 Flow Rate 97.8 F 121 H 22 H 115/95 H 95 Nasal Cannula 2 04/21/25 11:00 04/22/25 07:00 04/22/25 07:00 04/22/25 07:00 04/22/25 07:00 04/22/25 07:00 04/22/25 07:00 FiO2 30 04/21/25 15:03 Oxygen Flow Rate (L/min) 2 Oxygen Delivery Method Nasal Cannula Weight: 95.3 kg Body Mass Index (BMI) 39.6 Intake & Output: Intake and Output for Last 24 Hours 04/20/25 04/21/25 04/22/25 23:59 23:59 23:59 Intake Total 4155 / 4155 6425 / 6425 1120 / 1120 Output Total 2400 / 2400 2450 / 2450 900 / 900 Balance 1755 / 1755 3975 / 3975 220 / 220 Lab / Micro Data 04/22/25 05:40 04/22/25 07:37 Labs: Laboratory Results - last 24 hr 04/21/25 06:17: Sodium 142, Potassium 4.3, Chloride 107, Carbon Dioxide 24.1, Anion Gap 11, BUN 95 H, Creatinine 1.98 H, Estim Creat Clear Calc 21.37 L, Est GFR (MDRD) Non-Af 24 L, BUN/Creatinine Ratio 48.0 H, Glucose 156 H, Calcium 8.4 04/21/25 11:48: POC Glucose 152 H 04/21/25 16:06: POC Glucose 160 H 04/21/25 21:39: POC Glucose 144 H 04/22/25 05:40: WBC 6.6, RBC 3.06 L, Hgb 8.7 L, Hct 28.4 L, MCV 92.8, MCH 28.4, MCHC 30.6 L, RDW Std Deviation 55.7 H, RDW Coeff of Marcial 16.4 H, Plt Count 183, MPV 9.8, Immature Gran % (Auto) 0.500, Neut % (Auto) 82.0 H, Lymph % (Auto) 8.5 L, Berks % (Auto) 7.3, Eos % (Auto) 1.5, Baso % (Auto) 0.2, Absolute Neuts (auto)5.4, Absolute Lymphs (auto) 0.56 L, Nucleated RBC % 0, Sodium 144, Potassium 2.9L, Chloride 118 H, Carbon Dioxide 19.1 L, Anion Gap 7, BUN 58 H, Creatinine 1.03, Estim Creat Clear Calc 42.11 L, Est GFR (MDRD) Non-Af 53 L, BUN/CreatinineRatio 56.6 H, Glucose 126 H, Calcium 6.3 L* Micro: Microbiology 04/16/25 16:16 Sputum, Expectorated/Coughed Gram Stain - Final 04/16/25 16:16 Sputum, Expectorated/Coughed Respiratory Culture - Preliminary Klebsiella pneumoniae sp pneum Gram positive organism 04/18/25 11:00 Blood Culture (Wb) - Right Wrist Blood Culture - Preliminary No growth in 48 hours. 04/18/25 10:50 Blood Culture (Wb) - Arm Right Blood Culture - Preliminary No growth in 48 hours. 04/18/25 10:51 Mucosa - Nasopharyngeal Respiratory Panel (PCR) - Final 04/18/25 10:00 Urine Catheter - Ray Legionella Antigen - Final 04/18/25 10:00 Urine Catheter - Ray Streptococcus pneumoniae Antigen (M - Final 04/18/25 10:51 Mucosa - Nasopharyngeal Coronavirus COVID-19 PCR - Final Physical Exam Narrative GENERAL: Appears fatigued on nasal cannula HEENT: Atraumatic; normocephalic EYES; Anicteric, Normal Conjunctiva NECK; supple, normal thyroid, RESPIRATORY: Diminished to auscultation, CARDIOVASCULAR: Irregular S1-S2 but rate controlled GI: soft, normoactive bowel sounds, : No Renal angle tenderness; EXTREMITIES: Bipedal edema, no clubbing, MUSCULOSKELETAL: no muscle wasting NEURO: Awake; no lateralizing signs. SKIN: No Rash PSYCH; Flat affect Assessment & Plan Assessment/Plan (1) (HFpEF) heart failure with preserved ejection fraction: (2) Pleural effusion: (3) FERMÍN (acute kidney injury): (4) Atrial fibrillation with rapid ventricular response: PLAN: Plan Patient is an 84-year-old lady with past medical history significant for paroxysmal A-fib who presented with progressive shortness of breath and assessment of acute congestive heart failure made admitted to monitored bed for further management 1. Acute on chronic congestive heart failure with preserved ejection fraction ? Patient admitted to monitored bed treatment initiated with strict input and output, daily weights, fluid restriction as well as diuretic therapy with furosemide drip. As part of patient's management 2D echo was ordered on admission demonstrated ejection fraction of 55-60 % and Severe biatrial enlargement. ? Patient is on furosemide drip however response to therapy not impressive. Consult placed to cardiology. Family request ? 04/19/2025; patient is on furosemide drip however appears not to be responding. Creatinine and BUN worsening. ? 04/20/2025; patient BUN and creatinine continues to worsen. Lasix drip held given patient being relatively hypotensive. ? 04/21/2025; patient furosemide discontinued started on Zaroxolyn 2. Large right-sided pleural effusion ? CT of the chest obtained did show Large right pleural effusion with compressive atelectasis. Small left pleural effusion with compressive atelectasis.. An order was given for patient to undergo ultrasound-guided thoracocentesis as part of subsequent evaluation ordered pleural fluid studies including LDH WBC, and glucose levels ? 04/18/2025; patient ultrasound guided thoracocentesis centesis scheduled for 04/19/2025. ? 04/19/2025; patient scheduled to undergo ultrasound-guided paracentesis ? 04/20/2025: Patient underwent ultrasound-guided thoracocentesis on 04/19/2025 with 1350 mL of blood-tinged fluid aspirated sample sent to the lab for analysis.Patient was noted to be dyspneic earlier in the early hours of this a.m. patient placed on supplemental oxygen repeat x-ray ordered which did show reaccumulation of a moderate right pleural effusion again with adjacent right base passive collapse. No pneumothorax identified. Similar appearance of possible small left effusion and basilar atelectasis, passive collapse. ? 04/22/2025; repeat chest x-ray ordered for further evaluation 3. Acute kidney injury ? Suspected to be secondary to hypoperfusion from patient congestive heart failure. Creatinine from 01/10/2025 was 1.07 creatinine on admission was 2.31. Patient kidney function actually did worsen with diuresis with creatinine bumping up to 2.62. Subsequently requested for kidney ultrasound and nephrologyconsultation obtained ? 04/18/2025; patient kidney function did worsen. Subsequently requested nephrology consultation as well as ordered kidney ultrasound. Repeat BMP ordered in a.m. for follow-up ? 04/19/2025; Patient kidney function continues to worsen with BUN of 108 and creatinine of 2.93. Consult has been placed to nephrology today prior renal ultrasound obtained came back unremarkable. Repeat BMP ordered for a.m. ? 04/20/2025; patient kidney function continues to worsen. Family to decide if they want to proceed with temporary dialysis. Had a discussion with patient [id number]. Patient is agreeable to temporary dialysis catheter for now.. Consult subsequently placed to general surgery Case discussed with Dr. Michael De Luna ? 04/21/2025; patient creatinine down to 1.98, BUN down to 95 ? 04/22/2025; BMP this morning reviewed. Significant improvement in creatinine which is down to 1.03. Repeat BMP ordered. 4. Paroxysmal atrial fibrillation ? Patient went into A-fib with RVR necessitating patient being started on Cardizem drip which is currently being titrated to keep heart rate less than 100 ? 04/20/2025 patient is on apixaban decision was made to hold in anticipation of possible temporary dialysis catheter placement ? 04/21/2025; patient apixaban placed on hold. Started on p.o. Cardizem and metoprolol given her heart rates going up ? 04/22/2025; patient heart rates control still not optimal continues to remain labile 5. Acute hypoxic respiratory failure ? Secondary to congestive heart failure and large right sided pleural effusion. Patient was placed on supplemental oxygen in addition to bronchodilator treatment. ? 04/18/2025; patient to be assessed for home oxygen prior to this ? 04/20/2025; did ask patient about possible intubation if warranted. Patient isnot show how she wants to proceed and wants to have a discussion with the familyprior to making a decision ? 04/21/2025; patient had to be placed on noninvasive ventilation via Airvo after going into respiratory distress with significant hypoxia. ? 04/22/2025; patient has been weaned off Airvo now on nasal 6. Hypotension ? 04/20/2025 patient diuretic therapy as well as antihypertensive and antiarrhythmic's?Cardizem and metoprolol held. Resuscitated with IV fluid. An order was given for patient to be transferred to the intensive care unit. Did place an order for PICC line and order written for norepinephrine if patient does not respond to IV fluid resuscitation ? 04/21/2025; patient did respond to IV fluids 7. Essential hypertension ? Patient is on 40 mg of lisinopril held given patient worsening kidney function ? 04/20/2025; patient antihypertensives on hold given patient relatively low blood pressure 8. Hypothyroidism ? Patient is on levothyroxine home dose continued 9. Class II obesity ? Complicating care weight loss advised 10. Degenerative joint disease ? Pain meds as needed 11. Dyslipidemia ?Patient is on statin therapy, continued at home dose 12. Diabetes mellitus type 2 ? Patient is on metformin held on admission placed on Accu-Cheks AC and at bedtime with sliding scale coverage 13. Bilateral lower extremity venous insufficiency Manage patient to follow-up with PCP for outpatient management 14. Suspected pneumonia with Klebsiella pneumonia ? Patient has elevated WBC count with a left shift. CT of the chest obtained the day prior demonstrated infiltrate at the bases of both lungs. Patient subsequently started on ceftriaxone and azithromycin. Also did send for sputum and blood culture ? 04/19/2025; sputum cultures came out positive for Klebsiella pneumonia remains on appropriate antibiotic therapy 15. Physical deconditioning ? Requested for PT OT eval and social problems specialist to assist with discharge planning 16. DVT prophylaxis ? Patient is on apixaban held prior to patient thoracocentesis resumed subsequently Time spent in the patient's overall evaluation,decision-making process, review of diagnostic data, adjustment of management, discussion with other providers, nursing nursing, ancillary staff as well as patient's family involved in patient's care documentation, 50 Charges/Coding Visit Charges Inpatient E&M: 87080 Subs Hosp L3 04/22/25 0854 <Electronically signed by Amado Bailey MD> Cosigner Signature (if applicable): CC: ~ Signed [facility] Work Phone: 1(720) 417-121006-02-2025 Radiology Diagnostic study [facility]06-01-2025 Progress note Author Melissa Garcia [facility] Note Date/Time April 21, 2025 3:06p m [facility] Medical Records Department [address] [place] [address] Progress Note - Nephrology 04/21/25 1503 MR#: [id number] Acct: [id number] Name: JESS JACKSON Rep #:[id number] : 1940 84 From: Melissa mehta MD PCP: Ras Childress Status:ADM IN Location: ICU ICU05-1 Subjective Subjective Urine output is better, creatinine is better. She is on metolazone only Objective Data Objective Data Vital Signs: Vital Signs Temp Pulse Resp BP Pulse Ox O2 Del Method O2 Flow Rate 97.8 F 96 18 104/58 L 98 Nasal Cannula 2 04/21/25 11:00 04/21/25 15:00 04/21/25 15:00 04/21/25 15:00 04/21/25 15:00 04/21/25 15:00 04/21/25 15:00 FiO2 30 04/21/25 11:13 Oxygen Flow Rate (L/min) 2 Oxygen Delivery Method Nasal Cannula Weight: 91.2 kg Body Mass Index (BMI) 37.9 Intake & Output: Intake and Output for Last 24 Hours 04/19/25 04/20/25 04/21/25 23:59 23:59 23:59 Intake Total 1592.2 / 1592.2 4155 / 4155 3170 / 3170 Output Total 2865 / 2865 2400 / 2400 1000 / 1000 Balance -1272.8 / -1272.8 1755 / 1755 2170 / 2170 Lab / Micro Data 04/21/25 06:17 04/21/25 06:17 Labs: Laboratory Results - last 24 hr 04/20/25 16:00: POC Glucose 150 H 04/20/25 21:38: POC Glucose 164 H 04/21/25 06:17: WBC 8.7, RBC 3.86 L, Hgb 11.1 L, Hct 34.8 L, MCV 90.2, MCH 28.8,MCHC 31.9 L, RDW Std Deviation 54.4 H, RDW Coeff of Marcial 16.4 H, Plt Count 240, MPV 9.7, Immature Gran % (Auto) 0.300, Neut % (Auto) 82.9 H, Lymph % (Auto) 7.5 L, Berks % (Auto) 8.5, Eos % (Auto) 0.7, Baso % (Auto) 0.1, Absolute Neuts (auto)7.2, Absolute Lymphs (auto) 0.65 L, Nucleated RBC % 0, Sodium 142, Potassium 4.3, Chloride 107, Carbon Dioxide 24.1, Anion Gap 11, BUN 95 H, Creatinine 1.98 H, Estim Creat Clear Calc 21.37 L, Est GFR (MDRD) Non-Af 24 L, BUN/Creatinine Ratio 48.0 H, Glucose 156 H, Calcium 8.4 04/21/25 11:48: POC Glucose 152 H Micro: Microbiology 04/16/25 16:16 Sputum, Expectorated/Coughed Gram Stain - Final 04/16/25 16:16 Sputum, Expectorated/Coughed Respiratory Culture - Preliminary Klebsiella pneumoniae sp pneum Gram positive organism 04/18/25 11:00 Blood Culture (Wb) - Right Wrist Blood Culture - Preliminary No growth in 48 hours. 04/18/25 10:50 Blood Culture (Wb) - Arm Right Blood Culture - Preliminary No growth in 48 hours. 04/18/25 10:51 Mucosa - Nasopharyngeal Respiratory Panel (PCR) - Final 04/18/25 10:00 Urine Catheter - Ray Legionella Antigen - Final 04/18/25 10:00 Urine Catheter - Ray Streptococcus pneumoniae Antigen (M - Final 04/18/25 10:51 Mucosa - Nasopharyngeal Coronavirus COVID-19 PCR - Final Physical Exam Narrative Alert awake oriented x 3 no obvious distress no pallor no icterus no JVD s1s2 no murmurs lungs clear abdomen soft no organomegaly +++ edema no cyanosis ray + Assessment & Plan Assessment/Plan (1) FERMÍN (acute kidney injury): PLAN: Baseline creatinine is around 1.1. Previous admission creatinine was close to baseline. This admission creatinine is around 2.6-2.8. Renal ultrasound without any hydronephrosis. Urine analysis shows 2+ protein. HbA1c 6.9. Urine PCR 0.9 gm She has significant volume overload in the form of lower extremity edema, repeated pleural effusions. Surprisingly echocardiogram showed ejection fraction normal, presumably this is diastolic dysfunction. However BNP last admission was only around 230. This admission proBNP is only twice the normal limits. Due to proteinuria, renal failure, repeated pleural effusions, sent serology to rule out autoimmune conditions. We stopped Lasix drip on Tuesday and added metolazone. Surprisingly urine outputactually picked up with metolazone. And creatinine is better. Blood pressure about the same. There is few readings this morning that are high but she attributes those to coughing and other sympathetic responses. We all agreed that improvement in creatinine is a good thing. Most likely this is because Lasix has been stopped. I am not sure how to explain the increase inurine output with less Lasix. Maybe she had some Lasix resistance prior to that. We also agreed that we need to go back on at least some Lasix for maintenance diuresis. Will add twice a day dosing. Continue metolazone. If renal function continues to do well, there is no need for dialysis. Will repeatlabs daily for now. Discussed with family at bedside. All questions answered. 04/21/25 1506 <Electronically signed by Melissa Garcia MD> Cosigner Signature (if applicable): CC: ~ Signed [facility] Work Phone: [phone]) 150-336306-01-2025 Consult note Author Aubrey De Luna [facility] Note Date/Time April 21, 2025 2:55p m [facility] Medical Records Department [address] [place] [address] Consultation - Surgical 04/21/25 1443 MR#: [id number] Acct: [id number] Name: JESS JACKSON Rep #:[id number] : 1940 84 From: Aubrey De Luna MD PCP: Ras Childress Status:ADM IN Location: ICU ICU05-1 Assessment & Plan Assessment/Plan (1) FERMÍN (acute kidney injury): PLAN: Plan The patient is an 84-year-old female with a previous mentioned history of fluid overload and acute renal insufficiency. Creatinine seems to be improving as well as her urine output. She is on Eliquis and apparently was on Eliquis untilyesterday afternoon. Generally for this type of procedure, I would recommend around 48 hours of holding Eliquis (i.e. miss 4 doses). 48 hours would be tomorrow. Will continue to hold Eliquis and await nephrology's final recommendations especially in light of improving creatinine. Patient and familystates that someone last evening mentioned that she might not even need dialysiswith her improvement. I am certainly not at liberty to make this determination. Will await final recommendations from nephrology. We did briefly discuss details of temporary dialysis catheter placement. Patient states that she wouldlike to avoid dialysis unless its necessary. HPI Consult Data Date of Consult: 04/21/25 HPI Narrative Reason for Consultation: Temporary dialysis catheter insertion HPI Narrative: JESS JACKSON, is a 84 F who presents to the hospital with complaints of shortness of breath. Patient has a history of atrial fibrillation and is on Eliquis. Also has hypothyroidism, diabetes. [facility] Also recently found to have CHF. She has had several thoracenteses performed recently as well. Patient was subsequently admitted forpresumed CHF/fluid overload. She was also noted to have elevated creatinine. Medicine and nephrology feel that dialysis may be warranted in this situation. Surgical consult for temporary dialysis catheter placement was placed. Patient was on Eliquis until yesterday afternoon. Review of her labs show that her creatinine is actually improving as well as her urine output. 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 Instructions: Hold for SBP less than 130 mmHg. Follow with PCP and may decrease the dose to 10 mg daily. metformin 500 mg 24 hr 500 mg PO BID 09/30/1704/16 History tablet,extended release (gastric retention) pentoxifylline 400 mg 1 tab PO TID 09/30/17 History tablet,extended release acetaminophen 500 mg tablet 1,000 mg PO QHS PRN pain 0 01/08/25 Unknown History (Acetaminophen Extra Strength) cetirizine 10 mg tablet (24Hour 10 mg PO DAILY PRN all ergy symptoms 01/08/25 Unknown History Allergy) diosmin complex no.1 630 mg tablet 1 tab PO DAILY 12/2204/15/25 History (Vasculera) rbhxtktxxpsf-tvcdvqtn-ldsxir 1 tab PO DAILY 01/08/25 0 04/16/25 History tablet (A Thru Z High Potency tablet) simvastatin 20 mg tablet 20 mg PO QHS 01/08/25 History apixaban 5 mg tablet (Eliquis) 5 mg PO BID 90 days #18 0 tabs 01/23/25 04/16/25 Rx diltiazem HCl 240 mg 240 mg PO DAILY 3 months #90 caps 01/23/25 04/16/25 Rx capsule,extended release 24 hr (Cardizem CD) furosemide 40 mg tablet 40 mg PO DAILY 3 months #90 tabs 01/23/25 04/15/25 Rx metoprolol tartrate 50 mg tablet 50 mg PO BID 90 days #180 tabs 01/23/25 04/16/25 Rx biotin 5,000 mcg sublingual tablet 5,000 mcg sublingua l DAILY 04/16/25 04/15/25 History semaglutide 0.25 mg or 0.5 mg (2 0.5 mg subcut QWEEK d iabetes 04/16/25 Unknown History mg/1.5 mL) subcutaneous pen injector (Ozempic) Allergy/AdvReac Type Severity Reaction Status Date / Time enoxaparin (From Lovenox) Allergy Unknown Verified 04/16/25 11:15 oxycodone Allergy Unknown Verified 04/16/25 11:15 Penicillins (PCN) Allergy Unknown Verified 04/16/25 11:15 Family History Other Heart disease Surgical History History of lumpectomy of right breast History of lumbar laminectomy History of total replacement of both hip joints History of total bilateral knee replacement (TKR) Social History Smoking Status: Never smoker Physical Exam Narrative She is alert and oriented x 3. She is in no acute distress. Head is normocephalic and atraumatic. Pupils are equal round and reactive to light. Lab / Micro Data 04/21/25 06:17 04/21/25 06:17 Labs: Laboratory Results - last 24 hr 04/20/25 16:00: POC Glucose 150 H 04/20/25 21:38: POC Glucose 164 H 04/21/25 06:17: WBC 8.7, RBC 3.86 L, Hgb 11.1 L, Hct 34.8 L, MCV 90.2, MCH 28.8,MCHC 31.9 L, RDW Std Deviation 54.4 H, RDW Coeff of Marcial 16.4 H, Plt Count 240, MPV 9.7, Immature Gran % (Auto) 0.300, Neut % (Auto) 82.9 H, Lymph % (Auto) 7.5 L, Berks % (Auto) 8.5, Eos % (Auto) 0.7, Baso % (Auto) 0.1, Absolute Neuts (auto)7.2, Absolute Lymphs (auto) 0.65 L, Nucleated RBC % 0, Sodium 142, Potassium 4.3, Chloride 107, Carbon Dioxide 24.1, Anion Gap 11, BUN 95 H, Creatinine 1.98 H, Estim Creat Clear Calc 21.37 L, Est GFR (MDRD) Non-Af 24 L, BUN/Creatinine Ratio 48.0 H, Glucose 156 H, Calcium 8.4 04/21/25 11:48: POC Glucose 152 H Micro: Microbiology 04/16/25 16:16 Sputum, Expectorated/Coughed Gram Stain - Final 04/16/25 16:16 Sputum, Expectorated/Coughed Respiratory Culture - Preliminary Klebsiella pneumoniae sp pneum Gram positive organism 04/18/25 11:00 Blood Culture (Wb) - Right Wrist Blood Culture - Preliminary No growth in 48 hours. 04/18/25 10:50 Blood Culture (Wb) - Arm Right Blood Culture - Preliminary No growth in 48 hours. Charges/Coding Visit Charges Inpatient E&M: 90981 Init Hosp L3 04/21/25 2918 <Electronically signed by Aubrey De Luna MD> Cosigner Signature (if applicable): CC: Dr. Ras Blas, DO; Ras Childress~ Signed [facility] Work Phone: 1(957) 718-521906-01-2025 Progress note Author Amado Quintanillastanislaw [facility] Note Date/Time April 21, 2025 8:11a m [facility] Medical Records Department [address] [place] [address] Progress Note - Hospitalist 04/20/25 0950 MR#: [id number] Acct: [id number] Name: JESS JACKSON Rep #:[id number] : 1940 84 From: Amado Bailey MD PCP: Ras Childress Status:ADM IN Location: ICU ICU05-1 Reason for Visit Reason for Visit: Diagnoses Unspecified atrial fibrillation (04/16/25) Unspecified diastolic (congestive) heart failure (04/16/25) Pleural effusion, not elsewhere classified (04/16/25) Acute kidney failure, unspecified (04/16/25) Personal history of other endocrine, nutritional and metabolic disease (04/16/25) Subjective Subjective Patient underwent ultrasound-guided thoracocentesis on 04/19/2025 with 1350 mL ofblood-tinged fluid aspirated sample sent to the lab for analysis.Patient was noted to be dyspneic earlier in the early hours of this a.m. chest x-ray subsequently ordered demonstrated reaccumulation of the right-sided pleural effusion. Patient seen complains of feeling weak. Patient blood pressure on the low side.. Did order IV fluid resuscitation. Order given for patient to betransferred to the intensive care unit. Also had a discussion with patient and the family regarding possible dialysis patient is okay with temporary dialysis. Subsequently placed an order to general surgery for the temporary dialysis catheter placement Objective Data Objective Data Vital Signs: Vital Signs Temp Pulse Resp BP Pulse Ox O2 Del Method O2 Flow Rate 98.7 F 110 H 21 H 78/52 L 100 Airvo 40 04/20/25 04:08 04/20/25 07:24 04/20/25 07:24 04/20/25 07:00 04/20/25 08:20 04/20/25 08:20 04/20/25 07:24 FiO2 60 04/20/25 07:24 Oxygen Flow Rate (L/min) 40 Oxygen Delivery Method Airvo Weight: 89.9 kg Body Mass Index (BMI) 37.4 Intake & Output: Intake and Output for Last 24 Hours 04/18/25 04/19/25 04/20/25 23:59 23:59 23:59 Intake Total 990.42 / 1190.42 1592.2 / 1592.2 610 / 610 Output Total 695 / 1020 2865 / 2865 775 / 775 Balance 295.42 / 170.42 -1272.8 / -1272.8 -165 / -165 Lab / Micro Data 04/20/25 05:30 04/20/25 05:30 Labs: Laboratory Results - last 24 hr 04/18/25 14:17: Fluid Glucose 173, Fluid Total Protein 3.9, Fluid LDH 201 04/19/25 11:38: POC Glucose 146 H 04/19/25 14:17: Fluid Source THORACENTESIS, Fluid Color RED, Fluid Appearance TURBID, Fluid WBC 0.859, Fluid RBC 0.034, Fluid Tot Cell Count 0.949 H, Fld Polynuclear WBCs # 0.194, Fld Polynuclear WBCs % 22.6, Fluid Mononuclear WBCs 0.665, Fld Mononuclear WBCs % 77.4, Fluid Neutrophils 24, Fluid Lymphocytes 20, Fluid Monocytes 28, Fluid Macrophages 28, Fl Pathologist Comment May follow, Fluid Comment 2 SEE COMMENT 04/19/25 18:04: POC Glucose 179 H 04/19/25 21:46: POC Glucose 154 H 04/20/25 05:30: WBC 9.9, RBC 3.87 L, Hgb 10.9 L, Hct 34.7 L, MCV 89.7, MCH 28.2,MCHC 31.4 L, RDW Std Deviation 53.6 H, RDW Coeff of Marcial 16.5 H, Plt Count 278, MPV 9.7, Immature Gran % (Auto) 0.500, Neut % (Auto) 84.3 H, Lymph % (Auto) 7.6 L, Berks % (Auto) 7.2, Eos % (Auto) 0.3, Baso % (Auto) 0.1, Absolute Neuts (auto)8.4 H, Absolute Lymphs (auto) 0.75 L, Nucleated RBC % 0, Sodium 137, Potassium 4.0, Chloride 99, Carbon Dioxide 23.8, Anion Gap 14, BUN 116 H*, Creatinine 2.72H, Estim Creat Clear Calc 15.43 L, Est GFR (MDRD) Non-Af 17 L, BUN/Creatinine Ratio 42.6 H, Glucose 175 H, Calcium 8.7 04/20/25 06:10: POC Glucose 172 H Micro: Microbiology 04/16/25 16:16 Sputum, Expectorated/Coughed Gram Stain - Final 04/16/25 16:16 Sputum, Expectorated/Coughed Respiratory Culture - Preliminary Klebsiella pneumoniae sp pneum 04/18/25 10:51 Mucosa - Nasopharyngeal Respiratory Panel (PCR) - Final 04/18/25 10:00 Urine Catheter - Ray Legionella Antigen - Final 04/18/25 10:00 Urine Catheter - Ray Streptococcus pneumoniae Antigen (M - Final 04/18/25 10:51 Mucosa - Nasopharyngeal Coronavirus COVID-19 PCR - Final Radiography Diagnostic Testing: Radiology Impression Thoracentesis Ultrasound 04/17/25 11:48 IMPRESSION: Successful ultrasound-guided right thoracentesis. No immediate complication noted. Reading Location: [facility] Chest X-Ray 04/19/25 13:00 IMPRESSION: No evidence of pneumothorax following the right thoracentesis. Reading Location: [facility] Chest X-Ray 04/20/25 06:50 IMPRESSION: Since the post thoracentesis chest x-ray there appears to be now a reaccumulation of a moderate right pleural effusion again with adjacent right base passive collapse. No pneumothorax identified. Similar appearance of possible small left effusion and basilar atelectasis, passive collapse. Reading Location: [facility] Physical Exam Narrative GENERAL: Appears fatigued and ill looking HEENT: Atraumatic; normocephalic EYES; Anicteric, Normal Conjunctiva NECK; supple, normal thyroid, RESPIRATORY: Diminished to auscultation, bibasilar Rales CARDIOVASCULAR: Irregular S1-S2 but rate controlled GI: soft, normoactive bowel sounds, : No Renal angle tenderness; EXTREMITIES: Bipedal edema, no clubbing, MUSCULOSKELETAL: no muscle wasting NEURO: Awake; no lateralizing signs. SKIN: No Rash PSYCH; Flat affect Assessment & Plan Assessment/Plan (1) (HFpEF) heart failure with preserved ejection fraction: (2) Pleural effusion: (3) FERMÍN (acute kidney injury): (4) Atrial fibrillation with rapid ventricular response: PLAN: Plan Patient is an 84-year-old lady with past medical history significant for paroxysmal A-fib who presented with progressive shortness of breath and assessment of acute congestive heart failure made admitted to monitored bed for further management 1. Acute on chronic congestive heart failure with preserved ejection fraction ? Patient admitted to monitored bed treatment initiated with strict input and output, daily weights, fluid restriction as well as diuretic therapy with furosemide drip. As part of patient's management 2D echo was ordered on admission demonstrated ejection fraction of 55-60 % and Severe biatrial enlargement. ? Patient is on furosemide drip however response to therapy not impressive. Consult placed to cardiology. Family request ? 04/19/2025; patient is on furosemide drip however appears not to be responding. Creatinine and BUN worsening. ? 04/20/2025; patient BUN and creatinine continues to worsen. Lasix drip held given patient being relatively hypotensive. 2. Large right-sided pleural effusion ? CT of the chest obtained did show Large right pleural effusion with compressive atelectasis. Small left pleural effusion with compressive atelectasis.. An order was given for patient to undergo ultrasound-guided thoracocentesis as part of subsequent evaluation ordered pleural fluid studies including LDH WBC, and glucose levels ? 04/18/2025; patient ultrasound guided thoracocentesis centesis scheduled for 04/19/2025. ? 04/19/2025; patient scheduled to undergo ultrasound-guided paracentesis ? 04/20/2025: Patient underwent ultrasound-guided thoracocentesis on 04/19/2025 with 1350 mL of blood-tinged fluid aspirated sample sent to the lab for analysis.Patient was noted to be dyspneic earlier in the early hours of this a.m. patient placed on supplemental oxygen repeat x-ray ordered which did show reaccumulation of a moderate right pleural effusion again with adjacent right base passive collapse. No pneumothorax identified. Similar appearance of possible small left effusion and basilar atelectasis, passive collapse. 3. Acute kidney injury ? Suspected to be secondary to hypoperfusion from patient congestive heart failure. Creatinine from 01/10/2025 was 1.07 creatinine on admission was 2.31. Patient kidney function actually did worsen with diuresis with creatinine bumping up to 2.62. Subsequently requested for kidney ultrasound and nephrologyconsultation obtained ? 04/18/2025; patient kidney function did worsen. Subsequently requested nephrology consultation as well as ordered kidney ultrasound. Repeat BMP ordered in a.m. for follow-up ? 04/19/2025; Patient kidney function continues to worsen with BUN of 108 and creatinine of 2.93. Consult has been placed to nephrology today prior renal ultrasound obtained came back unremarkable. Repeat BMP ordered for a.m. ? 04/20/2025; patient kidney function continues to worsen. Family to decide if they want to proceed with temporary dialysis. Had a discussion with patient [id number]. Patient is agreeable to temporary dialysis catheter for now.. Consult subsequently placed to general surgery Case discussed with Dr. Michael De Luna 4. Paroxysmal atrial fibrillation ? Patient went into A-fib with RVR necessitating patient being started on Cardizem drip which is currently being titrated to keep heart rate less than 100 ? 04/20/2025 patient is on apixaban decision was made to hold in anticipation of possible temporary dialysis catheter placement 5. Acute hypoxia ? Secondary to congestive heart failure and large right sided pleural effusion. Patient was placed on supplemental oxygen in addition to bronchodilator treatment. ? 04/18/2025; patient to be assessed for home oxygen prior to this ? 04/20/2025; did ask patient about possible intubation if warranted. Patient isnot show how she wants to proceed and wants to have a discussion with the familyprior to making a decision 6. Hypotension ? 04/20/2025 patient diuretic therapy as well as antihypertensive and antiarrhythmic's?Cardizem and metoprolol held. Resuscitated with IV fluid. An order was given for patient to be transferred to the intensive care unit. Did place an order for PICC line and order written for norepinephrine if patient does not respond to IV fluid resuscitation 7. Essential hypertension ? Patient is on 40 mg of lisinopril held given patient worsening kidney function ? 04/20/2025; patient antihypertensives on hold given patient relatively low blood pressure 8. Hypothyroidism ? Patient is on levothyroxine home dose continued 9. Class II obesity ? Complicating care weight loss advised 10. Degenerative joint disease ? Pain meds as needed 11. Dyslipidemia ?Patient is on statin therapy, continued at home dose 12. Diabetes mellitus type 2 ? Patient is on metformin held on admission placed on Accu-Cheks AC and at bedtime with sliding scale coverage 13. Bilateral lower extremity venous insufficiency Manage patient to follow-up with PCP for outpatient management 14. Suspected pneumonia ? Patient has elevated WBC count with a left shift. CT of the chest obtained the day prior demonstrated infiltrate at the bases of both lungs. Patient subsequently started on ceftriaxone and azithromycin. Also did send for sputum and blood culture ? 04/19/2025; sputum cultures came out positive for Klebsiella pneumonia remains on appropriate antibiotic therapy 15. Physical deconditioning ? Requested for PT OT eval and social problems specialist to assist with discharge planning 16. DVT prophylaxis ? Patient is on apixaban held prior to patient thoracocentesis resumed subsequently Critical time spent in the patient's overall evaluation,decision-making process,review of diagnostic data, adjustment of management, discussion with other providers, nursing nursing, ancillary staff as well as patient's family involvedin patient's care documentation, 30 Minutes Charges/Coding Multi Select Codes Hospitalists' Procedures Procedures: 75220 Critical Care 1st Hr and 32008 Critical Care Addl 30 Min 04/20/25 1125 <Electronically signed by Amado Bailey MD> Cosigner Signature (if applicable): CC: ~ Signed ADDENDUM by Dr. Amado Bailey MD on 04/21/25 at 0811 Addendum Time spent was 80 minutes not 30 minutes 04/21/25 0811<Electronically signed by Amado Bailey MD> Cosigner Signature (if applicable): cc: ~* Signed [facility] Work Phone: 1(103) 396-950306-01-2025 Progress note Author Amado Bailey [facility] Note Date/Time April 21, 2025 8:10a m [facility] Medical Records Department [address] [place] [address] Progress Note - Hospitalist 04/21/25 0709 MR#: [id number] Acct: [id number] Name: JESS JACKSON Rep #:[id number] : 1940 84 From: Amado Bailey MD PCP: Ras Childress Status:ADM IN Location: ICU ICU- Reason for Visit Reason for Visit: Diagnoses Unspecified atrial fibrillation (04/16/25) Unspecified diastolic (congestive) heart failure (04/16/25) Pleural effusion, not elsewhere classified (04/16/25) Acute kidney failure, unspecified (04/16/25) Personal history of other endocrine, nutritional and metabolic disease (04/16/25) Subjective Subjective Patient was transferred to the intensive care unit after she became hypotensive. Patient did receive fluid resuscitation and an order was given for patient to be started on pressors. Patient patient blood pressure however did stabilize after arriving in the in the context of. Patient did have a coughing spell withresultant A-fib with RVR. Plan is to restart patient p.o. rate controlling agent. Patient creatinine slightly improved Objective Data Objective Data Vital Signs: Vital Signs Temp Pulse Resp BP Pulse Ox O2 Del Method O2 Flow Rate 98.3 F 114 H 24 H 134/83 H 95 Airvo 50 04/20/25 11:15 04/21/25 07:00 04/21/25 07:00 04/21/25 07:00 04/21/25 07:00 04/21/25 07:00 04/21/25 07:00 FiO2 45 04/21/25 07:00 Oxygen Flow Rate (L/min) 50 Oxygen Delivery Method Airvo Weight: 91.2 kg Body Mass Index (BMI) 37.9 Intake & Output: Intake and Output for Last 24 Hours 04/19/25 04/20/25 04/21/25 23:59 23:59 23:59 Intake Total 1592.2 / 1592.2 4155 / 4155 2120 / 2120 Output Total 2865 / 2865 2400 / 2400 1000 / 1000 Balance -1272.8 / -1272.8 1755 / 1755 1120 / 1120 Lab / Micro Data 04/21/25 06:17 04/21/25 06:17 Labs: Laboratory Results - last 24 hr 04/20/25 05:30: Sodium 137, Potassium 4.0, Chloride 99, Carbon Dioxide 23.8, Anion Gap 14, BUN 116 H*, Creatinine 2.72 H, Estim Creat Clear Calc 15.43 L, EstGFR (MDRD) Non-Af 17 L, BUN/Creatinine Ratio 42.6 H, Glucose 175 H, Calcium 8.7 04/20/25 13:28: POC Glucose 167 H 04/20/25 16:00: POC Glucose 150 H 04/20/25 21:38: POC Glucose 164 H 04/21/25 06:17: WBC 8.7, RBC 3.86 L, Hgb 11.1 L, Hct 34.8 L, MCV 90.2, MCH 28.8,MCHC 31.9 L, RDW Std Deviation 54.4 H, RDW Coeff of Marcial 16.4 H, Plt Count 240, MPV 9.7, Immature Gran % (Auto) 0.300, Neut % (Auto) 82.9 H, Lymph % (Auto) 7.5 L, Berks % (Auto) 8.5, Eos % (Auto) 0.7, Baso % (Auto) 0.1, Absolute Neuts (auto)7.2, Absolute Lymphs (auto) 0.65 L, Nucleated RBC % 0 Micro: Microbiology 04/18/25 11:00 Blood Culture (Wb) - Right Wrist Blood Culture - Preliminary No growth in 48 hours. 04/18/25 10:50 Blood Culture (Wb) - Arm Right Blood Culture - Preliminary No growth in 48 hours. 04/16/25 16:16 Sputum, Expectorated/Coughed Gram Stain - Final 04/16/25 16:16 Sputum, Expectorated/Coughed Respiratory Culture - Preliminary Klebsiella pneumoniae sp pneum 04/18/25 10:51 Mucosa - Nasopharyngeal Respiratory Panel (PCR) - Final 04/18/25 10:00 Urine Catheter - Ray Legionella Antigen - Final 04/18/25 10:00 Urine Catheter - Ray Streptococcus pneumoniae Antigen (M - Final 04/18/25 10:51 Mucosa - Nasopharyngeal Coronavirus COVID-19 PCR - Final Radiography Diagnostic Testing: Radiology Impression Chest X-Ray 04/20/25 06:50 IMPRESSION: Since the post thoracentesis chest x-ray there appears to be now a reaccumulation of a moderate right pleural effusion again with adjacent right base passive collapse. No pneumothorax identified. Similar appearance of possible small left effusion and basilar atelectasis, passive collapse. Reading Location: [facility] Physical Exam Narrative GENERAL: Appears fatigued patient on Airvo HEENT: Atraumatic; normocephalic EYES; Anicteric, Normal Conjunctiva NECK; supple, normal thyroid, RESPIRATORY: Diminished to auscultation, CARDIOVASCULAR: Irregular S1-S2 but rate controlled GI: soft, normoactive bowel sounds, : No Renal angle tenderness; EXTREMITIES: Bipedal edema, no clubbing, MUSCULOSKELETAL: no muscle wasting NEURO: Awake; no lateralizing signs. SKIN: No Rash PSYCH; Flat affect Assessment & Plan Assessment/Plan (1) (HFpEF) heart failure with preserved ejection fraction: (2) Pleural effusion: (3) FERMÍN (acute kidney injury): (4) Atrial fibrillation with rapid ventricular response: PLAN: Plan Patient is an 84-year-old lady with past medical history significant for paroxysmal A-fib who presented with progressive shortness of breath and assessment of acute congestive heart failure made admitted to monitored bed for further management 1. Acute on chronic congestive heart failure with preserved ejection fraction ? Patient admitted to monitored bed treatment initiated with strict input and output, daily weights, fluid restriction as well as diuretic therapy with furosemide drip. As part of patient's management 2D echo was ordered on admission demonstrated ejection fraction of 55-60 % and Severe biatrial enlargement. ? Patient is on furosemide drip however response to therapy not impressive. Consult placed to cardiology. Family request ? 04/19/2025; patient is on furosemide drip however appears not to be responding. Creatinine and BUN worsening. ? 04/20/2025; patient BUN and creatinine continues to worsen. Lasix drip held given patient being relatively hypotensive. ? 04/21/2025; patient furosemide discontinued started on Zaroxolyn 2. Large right-sided pleural effusion ? CT of the chest obtained did show Large right pleural effusion with compressive atelectasis. Small left pleural effusion with compressive atelectasis.. An order was given for patient to undergo ultrasound-guided thoracocentesis as part of subsequent evaluation ordered pleural fluid studies including LDH WBC, and glucose levels ? 04/18/2025; patient ultrasound guided thoracocentesis centesis scheduled for 04/19/2025. ? 04/19/2025; patient scheduled to undergo ultrasound-guided paracentesis ? 04/20/2025: Patient underwent ultrasound-guided thoracocentesis on 04/19/2025 with 1350 mL of blood-tinged fluid aspirated sample sent to the lab for analysis.Patient was noted to be dyspneic earlier in the early hours of this a.m. patient placed on supplemental oxygen repeat x-ray ordered which did show reaccumulation of a moderate right pleural effusion again with adjacent right base passive collapse. No pneumothorax identified. Similar appearance of possible small left effusion and basilar atelectasis, passive collapse. 3. Acute kidney injury ? Suspected to be secondary to hypoperfusion from patient congestive heart failure. Creatinine from 01/10/2025 was 1.07 creatinine on admission was 2.31. Patient kidney function actually did worsen with diuresis with creatinine bumping up to 2.62. Subsequently requested for kidney ultrasound and nephrologyconsultation obtained ? 04/18/2025; patient kidney function did worsen. Subsequently requested nephrology consultation as well as ordered kidney ultrasound. Repeat BMP ordered in a.m. for follow-up ? 04/19/2025; Patient kidney function continues to worsen with BUN of 108 and creatinine of 2.93. Consult has been placed to nephrology today prior renal ultrasound obtained came back unremarkable. Repeat BMP ordered for a.m. ? 04/20/2025; patient kidney function continues to worsen. Family to decide if they want to proceed with temporary dialysis. Had a discussion with patient [id number]. Patient is agreeable to temporary dialysis catheter for now.. Consult subsequently placed to general surgery Case discussed with Dr. Michael De Luna ? 04/21/2025; patient creatinine down to 1.98, BUN down to 95 4. Paroxysmal atrial fibrillation ? Patient went into A-fib with RVR necessitating patient being started on Cardizem drip which is currently being titrated to keep heart rate less than 100 ? 04/20/2025 patient is on apixaban decision was made to hold in anticipation of possible temporary dialysis catheter placement ? 04/21/2025; patient apixaban placed on hold. Started on p.o. Cardizem and metoprolol given her heart rates going up 5. Acute hypoxic respiratory failure ? Secondary to congestive heart failure and large right sided pleural effusion. Patient was placed on supplemental oxygen in addition to bronchodilator treatment. ? 04/18/2025; patient to be assessed for home oxygen prior to this ? 04/20/2025; did ask patient about possible intubation if warranted. Patient isnot show how she wants to proceed and wants to have a discussion with the familyprior to making a decision ? 04/21/2025; patient had to be placed on noninvasive ventilation via Airvo after going into respiratory distress with significant hypoxia. 6. Hypotension ? 04/20/2025 patient diuretic therapy as well as antihypertensive and antiarrhythmic's?Cardizem and metoprolol held. Resuscitated with IV fluid. An order was given for patient to be transferred to the intensive care unit. Did place an order for PICC line and order written for norepinephrine if patient does not respond to IV fluid resuscitation ? 04/21/2025; patient did respond to IV fluids 7. Essential hypertension ? Patient is on 40 mg of lisinopril held given patient worsening kidney function ? 04/20/2025; patient antihypertensives on hold given patient relatively low blood pressure 8. Hypothyroidism ? Patient is on levothyroxine home dose continued 9. Class II obesity ? Complicating care weight loss advised 10. Degenerative joint disease ? Pain meds as needed 11. Dyslipidemia ?Patient is on statin therapy, continued at home dose 12. Diabetes mellitus type 2 ? Patient is on metformin held on admission placed on Accu-Cheks AC and at bedtime with sliding scale coverage 13. Bilateral lower extremity venous insufficiency Manage patient to follow-up with PCP for outpatient management 14. Suspected pneumonia with Klebsiella pneumonia ? Patient has elevated WBC count with a left shift. CT of the chest obtained the day prior demonstrated infiltrate at the bases of both lungs. Patient subsequently started on ceftriaxone and azithromycin. Also did send for sputum and blood culture ? 04/19/2025; sputum cultures came out positive for Klebsiella pneumonia remains on appropriate antibiotic therapy 15. Physical deconditioning ? Requested for PT OT eval and social problems specialist to assist with discharge planning 16. DVT prophylaxis ? Patient is on apixaban held prior to patient thoracocentesis resumed subsequently Time spent in the patient's overall evaluation,decision-making process, review of diagnostic data, adjustment of management, discussion with other providers, nursing nursing, ancillary staff as well as patient's family involved in patient's care documentation, 55 Charges/Coding Visit Charges Inpatient E&M: 22878 Subs Hosp L3 04/21/25 0810 <Electronically signed by Amado Bailey MD> Cosigner Signature (if applicable): CC: ~ Signed [facility] Work Phone: 1(235) 997-259305-31-2025 Radiology Diagnostic study [facility]05-30-2025 Telephone encounter Note* Telephone Encounter - Meena Guerra MD - 04/19/2025 6:28 PM EDT Long conversation with family. And gave advice Regards, Meena Guerra MD [facility]05-30-2025 Miscellaneous Notes* Telephone Encounter - Meena Guerra MD - 04/19/2025 6:28 PM EDT Long conversation with family. And gave advice Meena Asif MD * Telephone Encounter - Elizabeth Jackson MA - 04/19/2025 3:23 PM EDT Spouse Avinash contact: [phone] is correct. Spouse will have phone on & be waiting for call. Elizabeth Jackson MA * Telephone Encounter - Meena Guerra MD - 04/19/2025 3:01 PM EDT Please call the family and confirm the numbers I can reach them on, as I will make a call before I leave office today RegardsMeena MD * Telephone Encounter - Mckayla Card RN - 04/19/2025 11:06 AM EDT Pts called in and reports a provider [...] today for providers reply. Mckayla Card, RN * Telephone Encounter - Meena Guerra MD - 04/19/2025 8:36 AM EDT Noted. Please set her up for hospital follow up. Meena Asif MD * Telephone Encounter - Sharon Hadley LPN - 04/18/2025 1:52 PM EDT Patient \ Avinash calling was admitted to [facility] on 04/16, gagging and spitting up mucous, no pneumonia diagnosis. He said she is having thoracentesis done tomorrow to remove fluid from her lung. [facility] Telephone encounter Note * Telephone Encounter - Elizabeth Jackson MA - 04/19/2025 3:23 PM EDT Spouse Avinash contact: [phone] is correct. Spouse will have phone on & be waiting for call. Elizabeth Jackson MA [facility]05-30-2025 Progress note Author Amado Kittoe [facility] Note Date/Time April 19, 2025 1:04p [facility] Medical Records Department [address] [place] [address] Progress Note - Hospitalist 04/19/25917 MR#: [id number] Acct: [id number] Name: JESS JACKSON Rep #:[id number] : 1940 84 From: Amado Bialey MD PCP: Ras Childress Status:ADM IN Location: [place] [address] Reason for Visit Reason for Visit: Diagnoses Unspecified atrial fibrillation (04/16/25) Unspecified diastolic (congestive) heart failure (04/16/25) Pleural effusion, not elsewhere classified (04/16/25) Acute kidney failure, unspecified (04/16/25) Personal history of other endocrine, nutritional and metabolic disease (04/16/25) Subjective Subjective Patient seen sputum cultures came back positive for Klebsiella pneumonia. Scheduled to undergo ultrasound-guided thoracocentesis. Patient kidney functioncontinues to worsen with BUN of 108 and creatinine of 2.93 Objective Data Objective Data Vital Signs: Vital Signs Temp Pulse Resp BP Pulse Ox O2 Del Method O2 Flow Rate 98.1 F 94 19 H 104/57 L 95 Nasal Cannula 2 04/19/25 08:31 04/19/25 08:31 04/19/25 08:31 04/19/25 08:31 04/19/25 08:31 04/19/25 08:43 04/19/25 08:31 FiO2 40 04/17/25 06:07 Oxygen Flow Rate (L/min) 2 Oxygen Delivery Method Nasal Cannula Weight: 91.2 kg Body Mass Index (BMI) 37.9 Intake & Output: Intake and Output for Last 24 Hours 04/17/25 04/18/25 04/19/25 23:59 23:59 23:59 Intake Total 709.27 / 719.27 990.42 / 1190.42 330 / 330 Output Total 525 / 525 695 / 1020 675 / 675 Balance 184.27 / 194.27 295.42 / 170.42 -345 / -345 Lab / Micro Data 04/19/25 06:20 04/19/25 06:20 Labs: Laboratory Results - last 24 hr 04/18/25 11:01: POC Glucose 181 H 04/18/25 14:10: PT 27.9 H, INR 2.5 04/18/25 14:30: APTT 36.8 H 04/18/25 15:35: U Random Total Protein 76.7 H, Urine Creatinine 79.50, Protein/Creatinin Ratio 965 H 04/18/25 16:41: POC Glucose 153 H 04/18/25 21:15: APTT 101.3 H* 04/18/25 21:45: POC Glucose 167 H 04/19/25 06:20: WBC 12.6 H, RBC 4.43, Hgb 12.4, Hct 39.6, MCV 89.4, MCH 28.0, MCHC 31.3 L, RDW Std Deviation 54.2 H, RDW Coeff of Marcial 16.7 H, Plt Count 373, MPV 10.0, Immature Gran % (Auto) 0.800, Neut % (Auto) 87.7 H, Lymph % (Auto) 5.6L, Berks % (Auto) 5.5, Eos % (Auto) 0.2, Baso % (Auto) 0.2, Absolute Neuts (auto)11.1 H, Absolute Lymphs (auto) 0.71 L, Nucleated RBC % 0, Sodium 136, Potassium 4.1, Chloride 98, Carbon Dioxide 23.6, Anion Gap 14, BUN 108 H*, Creatinine 2.93H, Estim Creat Clear Calc 14.44 L, Est GFR (MDRD) Non-Af 15 L, BUN/Creatinine Ratio 36.9 H, Glucose 169 H, Calcium 9.1, WILBUR-1 Antibody TNP, Sm (Schmitz) AntibodyTNP, FASHION PATTERNMAKER Antibody TNP, Scl-70 Scleroderma Ab TNP, Antichromatin Antibodies TNP, Centromere B Antibody TNP 04/19/25 06:53: POC Glucose 154 H Micro: Microbiology 04/16/25 16:16 Sputum, Expectorated/Coughed Gram Stain - Final 04/16/25 16:16 Sputum, Expectorated/Coughed Respiratory Culture - Preliminary Klebsiella pneumoniae sp pneum 04/18/25 10:51 Mucosa - Nasopharyngeal Respiratory Panel (PCR) - Final 04/18/25 10:00 Urine Catheter - Ray Legionella Antigen - Final 04/18/25 10:00 Urine Catheter - Ray Streptococcus pneumoniae Antigen (M - Final 04/18/25 10:51 Mucosa - Nasopharyngeal Coronavirus COVID-19 PCR - Final Physical Exam Narrative GENERAL: Appears fatigued and ill looking HEENT: Atraumatic; normocephalic EYES; Anicteric, Normal Conjunctiva NECK; supple, normal thyroid, RESPIRATORY: Diminished to auscultation, bibasilar Rales CARDIOVASCULAR: Irregular S1-S2 but rate controlled GI: soft, normoactive bowel sounds, : No Renal angle tenderness; EXTREMITIES: Bipedal edema, no clubbing, MUSCULOSKELETAL: no muscle wasting NEURO: Awake; no lateralizing signs. SKIN: No Rash PSYCH; Flat affect Assessment & Plan Assessment/Plan (1) (HFpEF) heart failure with preserved ejection fraction: (2) Pleural effusion: (3) FERMÍN (acute kidney injury): (4) Atrial fibrillation with rapid ventricular response: PLAN: Plan Patient is an 84-year-old lady with past medical history significant for paroxysmal A-fib who presented with progressive shortness of breath and assessment of acute congestive heart failure made admitted to monitored bed for further management 1. Acute on chronic congestive heart failure with preserved ejection fraction ? Patient admitted to monitored bed treatment initiated with strict input and output, daily weights, fluid restriction as well as diuretic therapy with furosemide drip. As part of patient's management 2D echo was ordered on admission demonstrated ejection fraction of 55-60 % and Severe biatrial enlargement. ? Patient is on furosemide drip however response to therapy not impressive. Consult placed to cardiology. Family request ? 04/19/2025; patient is on furosemide drip however appears not to be responding. Creatinine and BUN worsening. 2. Large right-sided pleural effusion ? CT of the chest obtained did show Large right pleural effusion with compressive atelectasis. Small left pleural effusion with compressive atelectasis.. An order was given for patient to undergo ultrasound-guided thoracocentesis as part of subsequent evaluation ordered pleural fluid studies including LDH WBC, and glucose levels ? 04/18/2025; patient ultrasound guided thoracocentesis centesis scheduled for 04/19/2025. ? 04/19/2025; patient scheduled to undergo ultrasound-guided paracentesis 3. Acute kidney injury ? Suspected to be secondary to hypoperfusion from patient congestive heart failure. Creatinine from 01/10/2025 was 1.07 creatinine on admission was 2.31. Patient kidney function actually did worsen with diuresis with creatinine bumping up to 2.62. Subsequently requested for kidney ultrasound and nephrologyconsultation obtained ? 04/18/2025; patient kidney function did worsen. Subsequently requested nephrology consultation as well as ordered kidney ultrasound. Repeat BMP ordered in a.m. for follow-up ? 04/19/2025; Patient kidney function continues to worsen with BUN of 108 and creatinine of 2.93. Consult has been placed to nephrology today prior renal ultrasound obtained came back unremarkable. Repeat BMP ordered for a.m. 4. Paroxysmal atrial fibrillation ? Patient went into A-fib with RVR necessitating patient being started on Cardizem drip which is currently being titrated to keep heart rate less than 100 5. Acute hypoxia ? Secondary to congestive heart failure and large right sided pleural effusion. Patient was placed on supplemental oxygen in addition to bronchodilator treatment. ? 04/18/2025; patient to be assessed for home oxygen prior to this 6. Diabetes mellitus type 2 ? Patient is on metformin held on admission placed on Accu-Cheks AC and at bedtime with sliding scale coverage 7. Essential hypertension ? Patient is on 40 mg of lisinopril held given patient worsening kidney function 8. Hypothyroidism ? Patient is on levothyroxine home dose continued 9. Class II obesity ? Complicating care weight loss advised 10. Degenerative joint disease ? Pain meds as needed 11. Dyslipidemia ?Patient is on statin therapy, continued at home dose 12. DVT prophylaxis ? Patient already on systemic anticoagulation with apixaban 13. Bilateral lower extremity venous insufficiency Manage patient to follow-up with PCP for outpatient management 14. Suspected pneumonia ? Patient has elevated WBC count with a left shift. CT of the chest obtained the day prior demonstrated infiltrate at the bases of both lungs. Patient subsequently started on ceftriaxone and azithromycin. Also did send for sputum and blood culture ? 04/19/2025; sputum cultures came out positive for Klebsiella pneumonia remains on appropriate antibiotic therapy 15. Physical deconditioning ? Requested for PT OT eval and social problems specialist to assist with discharge planning Time spent in the patient's overall evaluation,decision-making process, review of diagnostic data, adjustment of management, discussion with other providers, nursing nursing, ancillary staff as well as patient's family involved in patient's care documentation, 50 Minutes Charges/Coding Visit Charges Inpatient E&M: 25263 Subs Hosp L3 04/19/25 1304 <Electronically signed by Amado Bailey MD> Cosigner Signature (if applicable): CC: ~ Signed [facility] Work Phone: 1(622) 808-848705-30-2025 Telephone encounter Note* Telephone Encounter - Meena Guerra MD - 04/19/2025 3:01 PM EDT Please call the family and confirm the numbers I can reach them on, as I will make a call before I leave office today Regards, Meena Guerra MD [facility]05-30-2025 Radiology Diagnostic study [facility]05-30-2025 Radiology Diagnostic study [facility] 04-19-2025 Progress note Author Melissa Garcia [facility] Note Date/Time April 19, 2025 12:[address] [facility] Medical Records Department [address] [place] [address] Progress Note - Nephrology 04/19/25 1159 MR#: [id number] Acct: [id number] Name: JESS JACKSON Rep #:[id number] : 1940 84 From: Melissa mehta MD PCP: Ras Childress Status:ADM IN Location: [place] [address] Subjective Subjective urine output is only about 670 cc. breathing is still not great. for pleural taptoday. Objective Data Objective Data Vital Signs: Vital Signs Temp Pulse Resp BP Pulse Ox O2 Del Method O2 Flow Rate 98.1 F 94 19 H 104/57 L 95 Nasal Cannula 2 04/19/25 08:31 04/19/25 11:56 04/19/25 08:31 04/19/25 08:31 04/19/25 08:31 04/19/25 08:43 04/19/25 08:31 FiO2 40 04/17/25 06:07 Oxygen Flow Rate (L/min) 2 Oxygen Delivery Method Nasal Cannula Weight: 91.2 kg Body Mass Index (BMI) 37.9 Intake & Output: Intake and Output for Last 24 Hours 04/17/25 04/18/25 04/19/25 23:59 23:59 23:59 Intake Total 709.27 / 719.27 990.42 / 1190.42 330 / 330 Output Total 525 / 525 695 / 1020 675 / 675 Balance 184.27 / 194.27 295.42 / 170.42 -345 / -345 Lab / Micro Data 04/19/25 06:20 04/19/25 06:20 Labs: Laboratory Results - last 24 hr 04/18/25 14:10: PT 27.9 H, INR 2.5 04/18/25 14:30: APTT 36.8 H 04/18/25 15:35: U Random Total Protein 76.7 H, Urine Creatinine 79.50, Protein/Creatinin Ratio 965 H 04/18/25 16:41: POC Glucose 153 H 04/18/25 21:15: APTT 101.3 H* 04/18/25 21:45: POC Glucose 167 H 04/19/25 06:20: WBC 12.6 H, RBC 4.43, Hgb 12.4, Hct 39.6, MCV 89.4, MCH 28.0, MCHC 31.3 L, RDW Std Deviation 54.2 H, RDW Coeff of Marcial 16.7 H, Plt Count 373, MPV 10.0, Immature Gran % (Auto) 0.800, Neut % (Auto) 87.7 H, Lymph % (Auto) 5.6L, Berks % (Auto) 5.5, Eos % (Auto) 0.2, Baso % (Auto) 0.2, Absolute Neuts (auto)11.1 H, Absolute Lymphs (auto) 0.71 L, Nucleated RBC % 0, PT 23.8 H, INR 2.1, APTT 54.9 H, Sodium 136, Potassium 4.1, Chloride 98, Carbon Dioxide 23.6, Anion Gap 14, BUN 108 H*, Creatinine 2.93 H, Estim Creat Clear Calc 14.44 L, Est GFR (MDRD) Non-Af 15 L, BUN/Creatinine Ratio 36.9 H, Glucose 169 H, Calcium 9.1, WILBUR-1 Antibody TNP, Sm (Schmitz) Antibody TNP, FASHION PATTERNMAKER Antibody TNP, Scl-70 Scleroderma AbTNP, Antichromatin Antibodies TNP, Centromere B Antibody TNP 04/19/25 06:53: POC Glucose 154 H Micro: Microbiology 04/16/25 16:16 Sputum, Expectorated/Coughed Gram Stain - Final 04/16/25 16:16 Sputum, Expectorated/Coughed Respiratory Culture - Preliminary Klebsiella pneumoniae sp pneum 04/18/25 10:51 Mucosa - Nasopharyngeal Respiratory Panel (PCR) - Final 04/18/25 10:00 Urine Catheter - Ray Legionella Antigen - Final 04/18/25 10:00 Urine Catheter - Ray Streptococcus pneumoniae Antigen (M - Final 04/18/25 10:51 Mucosa - Nasopharyngeal Coronavirus COVID-19 PCR - Final Physical Exam Narrative Alert awake oriented x 3 no obvious distress no pallor no icterus no JVD s1s2 no murmurs lungs clear abdomen soft no organomegaly +++ edema no cyanosis ray + Assessment & Plan Assessment/Plan (1) FERMÍN (acute kidney injury): PLAN: Baseline creatinine is around 1.1. Previous admission creatinine was close to baseline. This admission creatinine is around 2.6-2.8. Renal ultrasound without any hydronephrosis. Urine analysis shows 2+ protein. HbA1c 6.9. Urine PCR 0.9 gm She has significant volume overload in the form of lower extremity edema, repeated pleural effusions. Surprisingly echocardiogram showed ejection fraction normal, presumably this is diastolic dysfunction. However BNP last admission was only around 230. This admission proBNP is only twice the normal limits. Pleural tap today Due to proteinuria, renal failure, repeated pleural effusions, sent serology to rule out autoimmune conditions. Discussed with daughter and . not great response to lasix drip and renal function worsening next step would be dialysis for volume removal was ok with it. patient says she would like to wait until pleural tap and see how she feels after. she was not opposed to dialysis however explained dialysis procedure etc. while it could be temporary since its acute its hard to predict all questions answered they are agreeable with continuing lasix drip and adding metolazone 04/19/25 1202 <Electronically signed by Melissa Garcia MD> Cosigner Signature (if applicable): CC: ~ Signed [facility] Work Phone: [phone] 429-372505-30-2025 Telephone encounter Note* Telephone Encounter - Mckayla Card RN - 04/19/2025 11:06 AM EDT Pts called in and reports a provider [...] back later today for providers reply. Mckayla Card RN [facility]05-30-2025 Telephone encounter Note* Telephone Encounter - Meena Guerra MD - 04/19/2025 8:36 AM EDT Noted. Please set her up for hospital follow up. Regards, Meena Guerra MD [facility]05-29-2025 Consult note Author Edward Le [facility] Note Date/Time April 18, 2025 1:57p [facility] Medical Records Department [address] [place] [address] Consultation - Cardiology 04/18/25 1350 MR#: [id number] Acct: [id number] Name: JESS JACKSON Rep #:[id number] : 1940 84 From: Edward Le MD PCP: Ras Childress Status:ADM IN Location: [facility] [id number] Assessment & Plan Assessment/Plan (1) (HFpEF) heart failure with preserved ejection fraction: (2) Pleural effusion: (3) History of diabetes mellitus: (4) History of hypothyroidism: (5) Atrial fibrillation with rapid ventricular response: (6) FERMÍN (acute kidney injury): PLAN: Cardiac care plan; 84-year-old patient with history of paroxysmal atrial fibrillation this presentation she has progressive shortness of breath as well she has worsening of her renal function. Recently patient was in hospital in December 2024 with asimilar episode of diastolic heart failure With pleural effusion requiring thoracocentesis. Other medical problem include history of hypothyroidism Diabetes mellitus Hyperlipidemia Venous stasis ulcers. With bilateral lower extremity edema. Patient has acute on chronic diastolic heart failure Recent echocardiogram showed LV function preserved With ejection fraction in the range of 55 to 60% Severe biatrial enlargement. Review of the current lab revealed, elevated creatinine to 2.8 Discussed, all her current medication will continue rate control using calcium channel castillo beta-castillo In addition will restart on heparin. As she is at high risk for stroke based onher [id number] score more than 4 Heparin can be stopped prior to thoracocentesis which she is set up for tomorrow. Patient to follow-up with the cardiology team at [facility] following discharge. Edward Le MD,FAC,[facility] HPI Consult Data Date of Consult: 04/18/25 HPI Narrative Reason for Consultation: HFpEF/A-fib with RVR. HPI Narrative: JESS JACKSON, is a 84 F who presents [facility] Medical History Diabetes Kidney disease Non-smoker Venous (peripheral) insufficiency Atrial fibrillation CHF (congestive heart failure) Venous stasis ulcer Hyperpigmentation of skin Lipodermatosclerosis of both lower extremities Right leg swelling Left leg swelling Varicose veins of lower extremity with inflammation, 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 Chronic venous insufficiency Generalized osteoarthrosis History of right breast cancer Cardiomegaly Home Medications ?Medication ?Instructions ?Recorded ?Last Taken ?Type gabapentin 300 mg capsule 300 mg PO QHS Neuropathy 09/0604/15/25 History (Neurontin) levothyroxine 100 mcg tablet 100 mcg PO DAILY 09/30/17 04/16/25 History lisinopril 40 mg tablet 40 mg PO DAILY 09/30/1703/22 History Held on 01/11/25. Instructions: Hold for SBP less than 130 mmHg. Follow with PCP and may decrease the dose to 10 mg daily. metformin 500 mg 24 hr 500 mg PO BID 09/30/1704/16 History tablet,extended release (gastric retention) pentoxifylline 400 mg 1 tab PO TID 09/30/17 History tablet,extended release acetaminophen 500 mg tablet 1,000 mg PO QHS PRN pain 0 01/08/25 Unknown History (Acetaminophen Extra Strength) cetirizine 10 mg tablet (24Hour 10 mg PO DAILY PRN all ergy symptoms 01/08/25 Unknown History Allergy) diosmin complex no.1 630 mg tablet 1 tab PO DAILY 12/2204/15/25 History (Vasculera) wtlyvcfhmcgj-ghqajjto-zqlbkx 1 tab PO DAILY 01/08/25 0 04/16/25 History tablet (A Thru Z High Potency tablet) simvastatin 20 mg tablet 20 mg PO QHS 01/08/25 History apixaban 5 mg tablet (Eliquis) 5 mg PO BID 90 days #18 0 tabs 01/23/25 04/16/25 Rx diltiazem HCl 240 mg 240 mg PO DAILY 3 months #90 caps 01/23/25 04/16/25 Rx capsule,extended release 24 hr (Cardizem CD) furosemide 40 mg tablet 40 mg PO DAILY 3 months #90 tabs 01/23/25 04/15/25 Rx metoprolol tartrate 50 mg tablet 50 mg PO BID 90 days #180 tabs 01/23/25 04/16/25 Rx biotin 5,000 mcg sublingual tablet 5,000 mcg sublingua l DAILY 04/16/25 04/15/25 History semaglutide 0.25 mg or 0.5 mg (2 0.5 mg subcut QWEEK d iabetes 04/16/25 Unknown History mg/1.5 mL) subcutaneous pen injector (Ozempic) Allergy/AdvReac Type Severity Reaction Status Date / Time enoxaparin (From Lovenox) Allergy Unknown Verified 04/16/25 11:15 oxycodone Allergy Unknown Verified 04/16/25 11:15 Penicillins (PCN) Allergy Unknown Verified 04/16/25 11:15 Family History (Updated 04/16/25 @ 14:[address] Ras Blas DO) Other Heart disease Surgical History History of lumpectomy of right breast History of lumbar laminectomy History of total replacement of both hip joints History of total bilateral knee replacement (TKR) Social History Smoking Status: Never smoker Physical Exam Cardio Cardio Narrative: Patient seen and evaluated at bedside family daughter and were at bedside as well as the nursing staff She appears fatigued, no symptoms of chest pain Cardiac rhythm revealed A-fib with controlled ventricular rate. Cardiac exam S1-S2 is irregular No systolic or diastolic murmur Chest exam diminished air entry bilateral. Risk Stratification Risk Stratification Applicable: No Objective Data Vital Signs: Vital Signs Temp Pulse Resp BP Pulse Ox O2 Del Method O2 Flow Rate 96.8 F L 67 23 H 82/56 L 95 Nasal Cannula 2 04/18/25 09:00 04/18/25 13:09 04/18/25 13:09 04/18/25 13:09 04/18/25 13:09 04/18/25 13:09 04/18/25 13:09 FiO2 40 04/17/25 06:07 Oxygen Flow Rate (L/min) 2 Oxygen Delivery Method Nasal Cannula Weight: 201 lb 0.985 oz Body Mass Index (BMI) 37.9 Intake & Output: Intake and Output for Last 24 Hours 04/16/25 04/17/25 04/18/25 23:59 23:59 23:59 Intake Total 500 / 750 709.27 / 719.27 790.75 / 790.75 Output Total 150 / 220 525 / 525 425 / 425 Balance 350 / 530 184.27 / 194.27 365.75 / 365.75 Lab / Micro Data 04/18/25 05:35 04/18/25 05:35 Labs: Laboratory Results - last 24 hr 04/17/25 13:53: Urine Urea Nitrogen 301 04/17/25 16:24: POC Glucose 197 H 04/17/25 19:56: POC Glucose 205 H 04/18/25 05:35: WBC 13.8 H, RBC 4.45, Hgb 12.7, Hct 39.6, MCV 89.0, MCH 28.5, MCHC 32.1, RDW Std Deviation 54.4 H, RDW Coeff of Marcial 16.7 H, Plt Count 347, MPV9.9, Immature Gran % (Auto) 0.600, Neut % (Auto) 89.5 H, Lymph % (Auto) 3.5 L, Berks % (Auto) 6.3, Eos % (Auto) 0.0, Baso % (Auto) 0.1, Absolute Neuts (auto) 12.4 H, Absolute Lymphs (auto) 0.49 L, Nucleated RBC % 0, Sodium 140, Potassium 4.4, Chloride 100, Carbon Dioxide 24.2, Anion Gap 16 H, BUN 96 H, Creatinine 2.86 H, Estim Creat Clear Calc 14.79 L, Est GFR (MDRD) Non-Af 16 L, BUN/Creatinine Ratio 33.7 H, Glucose 191 H, Calcium 9.3, Phosphorus 6.5 H, Magnesium 2.5 H 04/18/25 06:38: POC Glucose 176 H 04/18/25 11:01: POC Glucose 181 H Micro: Microbiology 04/18/25 10:00 Urine Catheter - Ray Legionella Antigen - Final 04/18/25 10:00 Urine Catheter - Ray Streptococcus pneumoniae Antigen (M - Final 04/18/25 10:51 Mucosa - Nasopharyngeal Coronavirus COVID-19 PCR - Final 04/16/25 16:16 Sputum, Expectorated/Coughed Gram Stain - Final 04/16/25 16:16 Sputum, Expectorated/Coughed Respiratory Culture - Preliminary GNR 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 subcontractor Cardiology Labs/Tests 04/18/25 05:35: WBC 13.8 H, RBC 4.45, Hgb 12.7, Hct 39.6, MCV 89.0, MCH 28.5, MCHC 32.1, Plt Count 347, MPV 9.9, Immature Gran % (Auto) 0.600, Neut % (Auto) 89.5 H, Lymph % (Auto) 3.5 L, Berks % (Auto) 6.3, Eos % (Auto) 0.0, Baso % (Auto)0.1, Absolute Neuts (auto) 12.4 H, Nucleated RBC % 0, Sodium 140, Potassium 4.4,Chloride 100, Carbon Dioxide 24.2, Anion Gap 16 H, BUN 96 H, Creatinine 2.86 H, Est GFR (MDRD) Non-Af 16 L, BUN/Creatinine Ratio 33.7 H, Glucose 191 H, Calcium 9.3, Phosphorus 6.5 H, Magnesium 2.5 H Rhythm: EKG: ECHO: Stress Test: Cardiac Cath: PCI: CT Surgery: Holter monitor: EPS: PPM: CXR: Chest CT Scan: Radiography Diagnostic Testing: Radiology Impression Renal Ultrasound 04/17/25 11:48 IMPRESSION: No acute findings in the retroperitoneum. Reading Location: REPLACED BY [facility] 04/18/25 7129 <Electronically signed by Edward Le MD> Cosigner Signature (if applicable): CC: Dr. Ras Blas DO; Ras Childress~ Signed [facility] Work Phone: 1(761) 357-532605-29-2025 Telephone encounter Note* Telephone Encounter - Sharon Hadley LPN - 04/18/2025 1:52 PM EDT Patient \ Avinash calling was admitted to [facility] on 04/16, gagging and spitting up mucous, no pneumonia diagnosis. He said she is having thoracentesis done tomorrow to remove fluid from her lung. [facility]05-29-2025 Consult note Author Melissa Garcia [facility] Note Date/Time April 18, 2025 11:[address] [facility] Medical Records Department [address] [place] [id number] Consultation - Nephrology 04/18/25 1114 MR#: [id number] Acct: [id number] Name: JESS JACKSON Rep #:[id number] : 1940 84 From: Melissa mehta MD PCP: Ras Childress Status:ADM [facility] Assessment & Plan Assessment/Plan (1) FERMÍN (acute kidney injury): PLAN: Baseline creatinine is around 1.1. Previous admission creatinine was close to baseline. This admission creatinine is around 2.6-2.8. Renal ultrasound without any hydronephrosis. Urine analysis shows 2+ protein. HbA1c 6.9. Will send for quantification. She has significant volume overload in the form of lower extremity edema, repeated pleural effusions. Surprisingly echocardiogram showed ejection fraction normal, presumably this is diastolic dysfunction. However BNP last admission was only around 230. This admission proBNP is only twice the normal limits. Pleural fluid for analysis has been sent, this will tell us if it is transudative or exudative. Due to proteinuria, renal failure, repeated pleural effusions, will send serology to rule out autoimmune conditions. Discussed with family at bedside. They are worried about Lasix drip causing renal failure. Explained about the hemodynamic effects. If renal function continues to worsen, we may have to back off. All questions answered. Discussed with hospitalist HPI Consult Data Date of Consult: 04/18/25 HPI Narrative Reason for Consultation: fermín HPI Narrative: JESS JACKSON, is a 84 F who presents to the hospital with shortness of breath. Nephrology on consultation in view of acute renal failure. It seems she has known history of CKD stage IIIa, baseline creatinine around 1.1. This is her second hospitalization in 3 months with similar issue. She was admitted here with shortness of breath, fluid overload, pleural effusions in December. Was aggressively diuresed. Echocardiogram at that time showed preserved ejection fraction, she was thought to have diastolic dysfunction. However BNP was only 230 at that time. She was discharged home on Lasix, did okay for a couple of months. Came in with worsening shortness of breath. This admission she came in at pleural effusions, status post pleural tap. Has significant lower extremity edema, being diuresed with Lasix drip. She also hasatrial fibrillation, currently on Cardizem drip. Blood pressure is borderline. Ray catheter indwelling, urine output acceptable. Creatinine last admission was close to baseline around 1.1. This admission creatinine is around 2.6. She denies any urinary complaints. No hematuria, dysuria, fever, chills, flank pain, kidney stones, UTIs, kidney surgeries. 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 Instructions: Hold for SBP less than 130 mmHg. Follow with PCP and may decrease the dose to 10 mg daily. metformin 500 mg 24 hr 500 mg PO BID 09/30/1704/16 History tablet,extended release (gastric retention) pentoxifylline 400 mg 1 tab PO TID 09/30/17 History tablet,extended release acetaminophen 500 mg tablet 1,000 mg PO QHS PRN pain 0 01/08/25 Unknown History (Acetaminophen Extra Strength) cetirizine 10 mg tablet (24Hour 10 mg PO DAILY PRN all ergy symptoms 01/08/25 Unknown History Allergy) diosmin complex no.1 630 mg tablet 1 tab PO DAILY 12/2204/15/25 History (Vasculera) tjwldjdkuybl-gnuwbpph-yjrtaq 1 tab PO DAILY 01/08/25 0 04/16/25 History tablet (A Thru Z High Potency tablet) simvastatin 20 mg tablet 20 mg PO QHS 01/08/25 History apixaban 5 mg tablet (Eliquis) 5 mg PO BID 90 days #18 0 tabs 01/23/25 04/16/25 Rx diltiazem HCl 240 mg 240 mg PO DAILY 3 months #90 caps 01/23/25 04/16/25 Rx capsule,extended release 24 hr (Cardizem CD) furosemide 40 mg tablet 40 mg PO DAILY 3 months #90 tabs 01/23/25 04/15/25 Rx metoprolol tartrate 50 mg tablet 50 mg PO BID 90 days #180 tabs 01/23/25 04/16/25 Rx biotin 5,000 mcg sublingual tablet 5,000 mcg sublingua l DAILY 04/16/25 04/15/25 History semaglutide 0.25 mg or 0.5 mg (2 0.5 mg subcut QWEEK d iabetes 04/16/25 Unknown History mg/1.5 mL) subcutaneous pen injector (Ozempic) Allergy/AdvReac Type Severity Reaction Status Date / Time enoxaparin (From Lovenox) Allergy Unknown Verified 04/16/25 11:15 oxycodone Allergy Unknown Verified 04/16/25 11:15 Penicillins (PCN) Allergy Unknown Verified 04/16/25 11:15 Family History (Updated 04/16/25 @ 14:[address] Ras Blas DO) Other Heart disease Surgical History History of lumpectomy of right breast History of lumbar laminectomy History of total replacement of both hip joints History of total bilateral knee replacement (TKR) Social History Smoking Status: Never smoker ROS ROS Narrative Negative except above Physical Exam Narrative Alert awake oriented x 3 no obvious distress no pallor no icterus no JVD s1s2 no murmurs lungs clear abdomen soft no organomegaly +++ edema no cyanosis ray + Lab / Micro Data 04/18/25 05:35 04/18/25 05:35 Labs: Laboratory Results - last 24 hr 04/17/25 11:52: POC Glucose 174 H 04/17/25 13:53: Urine Urea Nitrogen 301 04/17/25 16:24: POC Glucose 197 H 04/17/25 19:56: POC Glucose 205 H 04/18/25 05:35: WBC 13.8 H, RBC 4.45, Hgb 12.7, Hct 39.6, MCV 89.0, MCH 28.5, MCHC 32.1, RDW Std Deviation 54.4 H, RDW Coeff of Marcial 16.7 H, Plt Count 347, MPV9.9, Immature Gran % (Auto) 0.600, Neut % (Auto) 89.5 H, Lymph % (Auto) 3.5 L, Berks % (Auto) 6.3, Eos % (Auto) 0.0, Baso % (Auto) 0.1, Absolute Neuts (auto) 12.4 H, Absolute Lymphs (auto) 0.49 L, Nucleated RBC % 0, Sodium 140, Potassium 4.4, Chloride 100, Carbon Dioxide 24.2, Anion Gap 16 H, BUN 96 H, Creatinine 2.86 H, Estim Creat Clear Calc 14.79 L, Est GFR (MDRD) Non-Af 16 L, BUN/Creatinine Ratio 33.7 H, Glucose 191 H, Calcium 9.3, Phosphorus 6.5 H, Magnesium 2.5 H 04/18/25 06:38: POC Glucose 176 H Micro: Microbiology 04/16/25 16:16 Sputum, Expectorated/Coughed Gram Stain - Final 04/16/25 16:16 Sputum, Expectorated/Coughed Respiratory Culture - Preliminary 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 Reading Location: REPLACED BY [facility] 04/18/25 1119 <Electronically signed by Melissa Garcia MD> Cosigner Signature (if applicable): CC: Dr. Ras Blas, DO; Ras Childress~ Signed [facility] Work Phone: 1(528) 455-400905-29-2025 Progress note Author [facility] Note Date/Time April 18, 2025 9:38a m [facility] Medical Records Department [address] [place] [address] Progress Note - Hospitalist 04/18/25 0910 MR#: [id number] Acct: [id number] Name: JESS JACKSON Rep #:[id number] : 1940 84 From: Amado Bailey MD PCP: Ras Childress Status:ADM IN Location: [place] [id number] Reason for Visit Reason for Visit: Diagnoses Unspecified atrial fibrillation (04/16/25) Unspecified diastolic (congestive) heart failure (04/16/25) Pleural effusion, not elsewhere classified (04/16/25) Acute kidney failure, unspecified (04/16/25) Subjective Subjective Patient seen complains of feeling weak complains of nausea. Patient was startedon Cardizem drip for her A-fib with RVR remains on the Cardizem drip. Patient kidney function worsening ordered renal ultrasound. Admitted patient's family regarding her clinical condition. Plans for patient to undergo ultrasound-guided thoracocentesis in a.m. Objective Data Objective Data Vital Signs: Vital Signs Temp Pulse Resp BP Pulse Ox O2 Del Method O2 Flow Rate 97.1 F L 86 18 101/57 L 93 Nasal Cannula 3 04/18/25 03:00 04/18/25 08:36 04/18/25 08:36 04/18/25 07:00 04/18/25 08:36 04/18/25 08:36 04/18/25 08:36 FiO2 40 04/17/25 06:07 Oxygen Flow Rate (L/min) 3 Oxygen Delivery Method Nasal Cannula Weight: 91.2 kg Body Mass Index (BMI) 37.9 Intake & Output: Intake and Output for Last 24 Hours 04/16/25 04/17/25 04/18/25 23:59 23:59 23:59 Intake Total 500 / 750 709.27 / 719.27 198.41 / 198.41 Output Total 150 / 220 525 / 525 200 / 200 Balance 350 / 530 184.27 / 194.27 -1.59 / -1.59 Lab / Micro Data 04/18/25 05:35 04/18/25 05:35 Labs: Laboratory Results - last 24 hr 04/17/25 11:52: POC Glucose 174 H 04/17/25 13:53: Urine Urea Nitrogen 301 04/17/25 16:24: POC Glucose 197 H 04/17/25 19:56: POC Glucose 205 H 04/18/25 05:35: WBC 13.8 H, RBC 4.45, Hgb 12.7, Hct 39.6, MCV 89.0, MCH 28.5, MCHC 32.1, RDW Std Deviation 54.4 H, RDW Coeff of Marcial 16.7 H, Plt Count 347, MPV9.9, Immature Gran % (Auto) 0.600, Neut % (Auto) 89.5 H, Lymph % (Auto) 3.5 L, Berks % (Auto) 6.3, Eos % (Auto) 0.0, Baso % (Auto) 0.1, Absolute Neuts (auto) 12.4 H, Absolute Lymphs (auto) 0.49 L, Nucleated RBC % 0, Sodium 140, Potassium 4.4, Chloride 100, Carbon Dioxide 24.2, Anion Gap 16 H, BUN 96 H, Creatinine 2.86 H, Estim Creat Clear Calc 14.79 L, Est GFR (MDRD) Non-Af 16 L, BUN/Creatinine Ratio 33.7 H, Glucose 191 H, Calcium 9.3, Phosphorus 6.5 H, Magnesium 2.5 H 04/18/25 06:38: POC Glucose 176 H Micro: Microbiology 04/16/25 16:16 Sputum, Expectorated/Coughed Gram Stain - Final Radiography Diagnostic Testing: Radiology Impression Renal Ultrasound 04/17/25 11:48 IMPRESSION: No acute findings in the retroperitoneum. Reading Location: REPLACED BY [facility] Physical Exam Narrative GENERAL: Appears fatigued and ill looking HEENT: Atraumatic; normocephalic EYES; Anicteric, Normal Conjunctiva NECK; supple, normal thyroid, RESPIRATORY: Diminished to auscultation, bibasilar Rales CARDIOVASCULAR: Irregular S1-S2 but rate controlled GI: soft, normoactive bowel sounds, : No Renal angle tenderness; EXTREMITIES: Bipedal edema, no clubbing, MUSCULOSKELETAL: no muscle wasting NEURO: Awake; no lateralizing signs. SKIN: No Rash PSYCH; Flat affect Assessment & Plan Assessment/Plan (1) (HFpEF) heart failure with preserved ejection fraction: (2) Pleural effusion: (3) FERMÍN (acute kidney injury): (4) Atrial fibrillation with rapid ventricular response: PLAN: Plan Patient is an 84-year-old lady with past medical history significant for paroxysmal A-fib who presented with progressive shortness of breath and assessment of acute congestive heart failure made admitted to monitored bed for further management 1. Acute on chronic congestive heart failure with preserved ejection fraction ? Patient admitted to monitored bed treatment initiated with strict input and output, daily weights, fluid restriction as well as diuretic therapy with furosemide drip. As part of patient's management 2D echo was ordered on admission demonstrated ejection fraction of 55-60 % and Severe biatrial enlargement. ? Patient is on furosemide drip however response to therapy not impressive. Consult placed to cardiology. Family request 2. Large right-sided pleural effusion ? CT of the chest obtained did show Large right pleural effusion with compressive atelectasis. Small left pleural effusion with compressive atelectasis.. An order was given for patient to undergo ultrasound-guided thoracocentesis as part of subsequent evaluation ordered pleural fluid studies including LDH WBC, and glucose levels ? 04/18/2025; patient ultrasound guided thoracocentesis centesis scheduled for 04/19/2025. 3. Acute kidney injury ? Suspected to be secondary to hypoperfusion from patient congestive heart failure. Creatinine from 01/10/2025 was 1.07 creatinine on admission was 2.31. Patient kidney function actually did worsen with diuresis with creatinine bumping up to 2.62. Subsequently requested for kidney ultrasound and nephrologyconsultation obtained ? 04/18/2025; patient kidney function did worsen. Subsequently requested nephrology consultation as well as ordered kidney ultrasound. Repeat BMP ordered in a.m. for follow-up 4. Paroxysmal atrial fibrillation ? Patient went into A-fib with RVR necessitating patient being started on Cardizem drip which is currently being titrated to keep heart rate less than 100 5. Acute hypoxia ? Secondary to congestive heart failure and large right sided pleural effusion. Patient was placed on supplemental oxygen in addition to bronchodilator treatment. ? 04/18/2025; patient to be assessed for home oxygen prior to this 6. Diabetes mellitus type 2 ? Patient is on metformin held on admission placed on Accu-Cheks AC and at bedtime with sliding scale coverage 7. Essential hypertension ? Patient is on 40 mg of lisinopril held given patient worsening kidney function 8. Hypothyroidism ? Patient is on levothyroxine home dose continued 9. Class II obesity ? Complicating care weight loss advised 10. Degenerative joint disease ? Pain meds as needed 11. Dyslipidemia ?Patient is on statin therapy, continued at home dose 12. DVT prophylaxis ? Patient already on systemic anticoagulation with apixaban 13. Bilateral lower extremity venous insufficiency Manage patient to follow-up with PCP for outpatient management 14. Suspected pneumonia ? Patient has elevated WBC count with a left shift. CT of the chest obtained the day prior demonstrated infiltrate at the bases of both lungs. Patient subsequently started on ceftriaxone and azithromycin. Also did send for sputum and blood culture Time spent in the patient's overall evaluation,decision-making process, review of diagnostic data, adjustment of management, discussion with other providers, nursing nursing and ancillary staff involved in patient's care documentation, 55 Minutes Charges/Coding Visit Charges Inpatient E&M: 50086 Subs Hosp L3 04/18/25 0938 <Electronically signed by Amado Bailey MD> Cosigner Signature (if applicable): CC: ~ Signed [facility] Work Phone: 1(624) 687-631905-28-2025 Radiology Diagnostic study [facility]05-28-2025 Progress note Author Amado Bailey [facility] Note Date/Time April 17, 2025 1:31p m [facility] Medical Records Department [address] [place] [id number] Progress Note - Hospitalist 04/17/25 1129 MR#: [id number] Acct: [id number] Name: JESS JACKSON Rep #:[id number] : 1940 84 From: Amado Bailey MD PCP: Ras Childress Status:ADM IN Location: [place] [address] Reason for Visit Reason for Visit: Diagnoses Unspecified diastolic (congestive) heart failure (04/16/25) Acute kidney failure, unspecified (04/16/25) Subjective Subjective Patient is an 84-year-old lady with past medical history significant for paroxysmal A-fib who presented with progressive shortness of breath and assessment of acute congestive heart failure made admitted to monitored bed for further management Objective Data Objective Data Vital Signs: Vital Signs Temp Pulse Resp BP Pulse Ox O2 Del Method O2 Flow Rate 98.4 F 135 H 28 H 110/78 95 Nasal Cannula 6 04/17/25 06:00 04/17/25 09:08 04/17/25 06:00 04/17/25 09:08 04/17/25 07:40 04/17/25 07:40 04/17/25 07:40 FiO2 40 04/17/25 06:07 Oxygen Flow Rate (L/min) 6 Oxygen Delivery Method Nasal Cannula Weight: 91.2 kg Body Mass Index (BMI) 37.9 Intake & Output: Intake and Output for Last 24 Hours 04/15/25 04/16/25 04/17/25 23:59 23:59 23:59 Intake Total 500 / 750 506.85 / 506.85 Output Total 150 / 220 200 / 200 Balance 350 / 530 306.85 / 306.85 Lab / Micro Data 04/17/25 04:38 04/17/25 04:38 Labs: Laboratory Results - last 24 hr 04/16/25 11:33: WBC 13.5 H, RBC 4.73, Hgb 13.3, Hct 42.8, MCV 90.5, MCH 28.1, MCHC 31.1 L, RDW Std Deviation 56.1 H, RDW Coeff of Marcial 16.8 H, Plt Count 322, MPV 10.2, Immature Gran % (Auto) 0.300, Neut % (Auto) 84.3 H, Lymph % (Auto) 5.7L, Berks % (Auto) 9.2, Eos % (Auto) 0.1, Baso % (Auto) 0.4, Absolute Neuts (auto)11.4 H, Absolute Lymphs (auto) 0.77 L, Nucleated RBC % 0, PT 34.7 H, INR 3.4, APTT 36.3 H, Sodium 137, Potassium 5.2 H, Chloride 98, Carbon Dioxide 19.6 L, Anion Gap 19 H, BUN 66 H, Creatinine 2.31 H, Estim Creat Clear Calc 18.55 L, Est GFR (MDRD) Non-Af 20 L, BUN/Creatinine Ratio 28.7 H, Glucose 157 H, Calcium 9.5,Troponin T High Sens 46 H, NT pro BNP II 4839 H 04/16/25 13:32: Troponin T Hi Sens 2 Hr 33 H 04/16/25 16:09: POC Glucose 160 H 04/16/25 19:01: Urine Color Yellow, Urine Clarity Sl. Cloudy, Urine pH 5.0, Ur Specific Lawtey 1.020, Urine Protein 100 H, Urine Glucose (UA) Normal, Urine Ketones Negative, Urine Occult Blood Negative, Urine Nitrite Negative, Urine Bilirubin Negative, Urine Urobilinogen Normal, Ur Leukocyte Esterase 25 H, UrineRBC 0-5 SEEN, Urine WBC 5-10 SEEN, Ur Squamous Epith Cells 0-5 SEEN, Urine Bacteria 0 SEEN, Urine Mucus 0 SEEN, Urine Creatinine 96.50 04/16/25 22:29: POC Glucose 158 H 04/17/25 04:38: WBC 13.5 H, RBC 4.59, Hgb 13.0, Hct 41.3, MCV 90.0, MCH 28.3, MCHC 31.5 L, RDW Std Deviation 55.6 H, RDW Coeff of Marcial 16.8 H, Plt Count 365, MPV 10.4, Immature Gran % (Auto) 0.700, Neut % (Auto) 87.7 H, Lymph % (Auto) 4.5L, Berks % (Auto) 6.7, Eos % (Auto) 0.0, Baso % (Auto) 0.4, Absolute Neuts (auto)11.8 H, Absolute Lymphs (auto) 0.60 L, Nucleated RBC % 0, Sodium 138, Potassium 4.9, Chloride 98, Carbon Dioxide 22.2, Anion Gap 18 H, BUN 79 H, Creatinine 2.62H, Estim Creat Clear Calc 16.15 L, Est GFR (MDRD) Non-Af 17 L, BUN/Creatinine Ratio 30.0 H, Glucose 173 H, Hemoglobin A1c 6.9 H, Calcium 9.4, Magnesium 2.4 H 04/17/25 06:41: POC Glucose 175 H Radiography Diagnostic Testing: Radiology Impression Chest X-Ray 04/16/25 12:00 IMPRESSION: Cardiomegaly and CHF. Small bilateral effusions right greater than left with bibasilar atelectasis worse on the right side. Reading Location: [place] [address] Echocardiogram 04/16/25 14:36 Interpretation Summary The estimated ejection fraction is 55-60 %. Severe biatrial enlargement. No significant change from previous echocardiogram. Ordering Physician: Ras Blas Referring Physician: Ras Blas Performed By: Nathan Satck, [facility] Chest X-Ray 04/17/25 05:04 IMPRESSION: Interval now lower lung volumes. The right pleural effusion appears to have increased in size now [id number] with further adjacent partial passive collapse and atelectasis. Small left pleural effusion. Bilateral perihilar ill-defined opacity may be related to pulmonary edema, appear increased. Reading Location: [id number] Chest CT 04/17/25 07:37 IMPRESSION: Coronary artery calcification (CAC) is is present Large right pleural effusion with compressive atelectasis. Small left pleural effusion with compressive atelectasis. Reading Location: [facility] Physical Exam Narrative GENERAL: cooperative but dyspneic at rest HEENT: Atraumatic; normocephalic EYES; Anicteric, Normal Conjunctiva NECK; supple, normal thyroid, RESPIRATORY: Diminished to auscultation, bibasilar Rales CARDIOVASCULAR: Regular S1 S2, GI: soft, normoactive bowel sounds, : No Renal angle tenderness; EXTREMITIES: Bipedal edema, no clubbing, MUSCULOSKELETAL: no muscle wasting NEURO: Awake; no lateralizing signs. SKIN: No Rash PSYCH; Flat affect Assessment & Plan Assessment/Plan (1) (HFpEF) heart failure with preserved ejection fraction: (2) Pleural effusion: (3) FERMÍN (acute kidney injury): (4) Atrial fibrillation with rapid ventricular response: PLAN: Plan Patient is an 84-year-old lady with past medical history significant for paroxysmal A-fib who presented with progressive shortness of breath and assessment of acute congestive heart failure made admitted to monitored bed for further management 1. Acute on chronic congestive heart failure with preserved ejection fraction ? Patient admitted to monitored bed treatment initiated with strict input and output, daily weights, fluid restriction as well as diuretic therapy with furosemide drip. As part of patient's management 2D echo was ordered on admission demonstrated ejection fraction of 55-60 % and Severe biatrial enlargement. 2. Large right-sided pleural effusion ? CT of the chest obtained did show Large right pleural effusion with compressive atelectasis. Small left pleural effusion with compressive atelectasis.. An order was given for patient to undergo ultrasound-guided thoracocentesis as part of subsequent evaluation ordered pleural fluid studies including LDH WBC, and glucose levels 3. Acute kidney injury ? Suspected to be secondary to hypoperfusion from patient congestive heart failure. Creatinine from 01/10/2025 was 1.07 creatinine on admission was 2.31. Patient kidney function actually did worsen with diuresis with creatinine bumping up to 2.62. Subsequently requested for kidney ultrasound and nephrologyconsultation obtained 4. Paroxysmal atrial fibrillation ? Patient went into A-fib with RVR necessitating patient being started on Cardizem drip which is currently being titrated to keep heart rate less than 100 5. Acute hypoxia ? Secondary to congestive heart failure and large right sided pleural effusion. Patient was placed on supplemental oxygen in addition to bronchodilator treatment. Diabetes mellitus type 2 ? Patient is on metformin held on admission placed on Accu-Cheks AC and at bedtime with sliding scale coverage 7. Essential hypertension ? Patient is on 40 mg of lisinopril held given patient worsening kidney function 8. Hypothyroidism ? Patient is on levothyroxine home dose continued 9. Class II obesity ? Complicating care weight loss advised 10. Degenerative joint disease ? Pain meds as needed 11. Dyslipidemia ?Patient is on statin therapy, continued at home dose 12. DVT prophylaxis ? Patient already on systemic anticoagulation with apixaban 13. Bilateral lower extremity venous insufficiency Manage patient to follow-up with PCP for outpatient management Charges/Coding Visit Charges Inpatient E&M: 14414 Subs Hosp L3 04/17/25 1331 <Electronically signed by Amado Bailey MD> Cosigner Signature (if applicable): CC: ~ Signed [facility] Work Phone: 1(772) 856-809005-28-2025 Radiology Diagnostic study [facility]05-28-2025 Radiology Diagnostic study [facility]05-27-2025 Discharge summary Author Nathan Castanon [facility] Note Date/Time April 16, 2025 3:18p m [facility] Medical Records Department [address] [place] [address] Emergency Department Summary 04/16/25 MR#: [id number] Acct: [id number] Name: JESS JACKSON Rep #:[id number] : 1940 84 From: Nathan Baron ggett DO PCP: Dr. Meena Guerra MD Status:ADM I N Location: [place] [address] HPI History of Present Illness Chief Complaint: Shortness of Breath Narrative Narrative: Chief complaint and HPI: Shortness of breath. History taken by medical record as well as patient. I reviewed the discharge summary from 01/11 as well as a cardiology note from 01/23. 84-year-old female with past medical history of recently diagnosed atrial fibrillation, hypothyroidism, DM 2, HFpEF presents forevaluation of shortness of breath. Patient was recently hospitalized in December after being found in A-fib with RVR. She was diagnosed with CHF in which shehad an echocardiogram on 01/09 that showed an EF of 64%, stage I diastolic dysfunction, severe bilateral atrial dilation and valvular disease. She furtherhad a thoracentesis on 01/09 with 1.3 L removed. Cardiology note on 01/23 states that they decided not to pursue cardioversion. Patient states since seeing thecardiologist she has been taking all of her medications. States she is taking 40 mg of Lasix daily. Patient states over the past several days she has had increased swelling in her bilateral lower extremities as well as abdomen. Associated shortness of breath, worse with exertion. She does not weigh herself. She does not know how much weight she has gained. She states she doubled her Lasix yesterday and took 80 mg. She denies any fever, chills, cough, URI symptoms, chest pain, nausea, vomiting. Review of systems: See HPI Medications: As listed on the chart Allergies: As listed on the chart PFSH: Per chart Vital signs: As listed on the chart. Reviewed. Physical exam: Gen: A&O x3, NAD Head: Normocephalic, atraumatic Eyes: No sclera icterus, conjunctiva clear ENT: Moist mucous membranes Neck: Trachea midline, No JVD CV: Regular rate, irregular rhythm, no murmurs, + 2 bilateral pitting peripheraledema of the lower extremities Resp: Lungs CTA BL but diminished in the bilateral bases, no w/r/c GI: Abd soft, non-distended, non-tender, no r/r/g Musc: Full ROM, no deformity Skin: Warm, dry Neuro: Alert, oriented, grossly intact, sensation intact Psych: Cooperative, appropriate mood and affect [facility] Medical History Diabetes Kidney disease Non-smoker Venous (peripheral) insufficiency Atrial fibrillation CHF (congestive heart failure) Venous stasis ulcer Hyperpigmentation of skin Lipodermatosclerosis of both lower extremities Right leg swelling Left leg swelling Varicose veins of lower extremity with inflammation, 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 Chronic venous insufficiency Generalized osteoarthrosis History of right breast cancer Cardiomegaly Home Medications ?Medication ?Instructions ?Recorded ?Last Taken ?Type gabapentin 300 mg capsule 300 mg PO DAILY 09/30/17 History (Neurontin) levothyroxine 100 mcg tablet 100 mcg PO DAILY 09/30/17 04/16/25 History liraglutide 0.6 mg/0.1 mL (18 mg/3 1.2 mg SQ BREAKFAST 09/30/17 04/16/25 History mL) subcutaneous pen injector (Victoza 2-Elkin) lisinopril 40 mg tablet 40 mg PO DAILY 09/30/1703/22 History Held on 01/11/25. Instructions: Hold for SBP less than 130 mmHg. Follow with PCP and may decrease the dose to 10 mg daily. metformin 500 mg 24 hr 500 mg PO BID 09/30/1704/16 History tablet,extended release (gastric retention) pentoxifylline 400 mg 1 tab PO TID 09/30/17 History tablet,extended release acetaminophen 500 mg tablet 1,000 mg PO QHS PRN pain 0 01/08/25 Unknown History (Acetaminophen Extra Strength) cetirizine 10 mg tablet (24Hour 10 mg PO DAILY PRN all ergy symptoms 01/08/25 Unknown History Allergy) diosmin complex no.1 630 mg tablet 1 tab PO DAILY 12/2204/15/25 History (Vasculera) yeckpjhfufvv-dxeekrzk-vbflgs 1 tab PO DAILY 01/08/25 0 04/16/25 History tablet (A Thru Z High Potency tablet) simvastatin 20 mg tablet 20 mg PO QHS 01/08/25 History apixaban 5 mg tablet (Eliquis) 5 mg PO BID 90 days #18 0 tabs 01/23/25 04/16/25 Rx diltiazem HCl 240 mg 240 mg PO DAILY 3 months #90 caps 01/23/25 04/16/25 Rx capsule,extended release 24 hr (Cardizem CD) furosemide 40 mg tablet 40 mg PO DAILY 3 months #90 tabs 01/23/25 04/15/25 Rx metoprolol tartrate 50 mg tablet 50 mg PO BID 90 days #180 tabs 01/23/25 04/16/25 Rx biotin 5,000 mcg sublingual tablet 5,000 mcg sublingua l DAILY 04/16/25 04/15/25 History Allergy/AdvReac Type Severity Reaction Status Date / Time enoxaparin (From Lovenox) Allergy Unknown Verified 04/16/25 11:15 oxycodone Allergy Unknown Verified 04/16/25 11:15 Penicillins (PCN) Allergy Unknown Verified 04/16/25 11:15 Family History (Updated 04/16/25 @ 14:[address] Ras Blas DO) Other Heart disease Surgical History History of lumpectomy of right breast History of lumbar laminectomy History of total replacement of both hip joints History of total bilateral knee replacement (TKR) Social History Smoking Status: Never smoker EXAM Physical Exam Const Vital Signs: 04/16/25 11:12 04/16/25 12:11 04/16/25 13:04 Temperature 97.7 F L Temperature Source Oral Pulse Rate 131 H Respiratory Rate 18 Blood Pressure 93/66 Blood Pressure Mean 75 Pulse Ox 91 88 94 Oxygen Delivery Method Room Air Room Air Nasal Cannula Oxygen Flow Rate (L/min) 2 MDM MDM MDM Narrative Medical decision making narrative: 84-year-old female with past medical history of recently diagnosed atrial fibrillation, hypothyroidism, DM 2, HFpEF presents for evaluation of shortness of breath. History taken by patient as well as medical record. See HPI. Associated symptom is bilateral lower extremity swelling. Suspect CHF exacerbation however differential diagnosis includes but is not limited to arrhythmia, ACS, pneumonia. EKG reviewed see below. Chest x-ray was personallyreviewed and interpreted by me, ED physician. Cardiomegaly with bilateral pleural effusions, right greater than left. Vascular congestion. No pneumothorax or pneumonia. This is consistent with CHF exacerbation. Radiologyin agreement. CBC with mild leukocytosis of 13.5. No anemia. INR 3.4. BMP shows FERMÍN with BUN of 66 and creatinine of 2.31. Patient's creatinine was 1.27 on 01/23. I suspect that this is likely secondary to her home diuretics. Troponin 46 and 33. Patient not having any chest pain. I suspect that the elevated troponin is likely secondary to her CHF exacerbation. Her BNP is 4839. IV Lasix ordered. Patient will warrant admission for CHF exacerbation. Her and her were updated of all the results and the plan. They confirmed understanding. Hospice accepted admission. Patient became hypoxic here in the emergency department, likely secondary to CHF therefore she was placed on 2 L nasal cannula. EKG: Interpreted by me/EM physician: EKG shows atrial fibrillation with a heart rate of 109. Known right bundle branch block. No ST elevation. Impression: 1. CHF exacerbation 2. FERMÍN likely secondary to home diuretics. 3. Acute hypoxia requiring nasal cannula secondary to #1 Lab Data Labs: Laboratory Results - last 24 hr 04/16/25 04/16/25 11:33 13:32 WBC 13.5 H RBC 4.73 Hgb 13.3 Hct 42.8 MCV 90.5 MCH 28.1 MCHC 31.1 L RDW Std Deviation 56.1 H RDW Coeff of Marcial 16.8 H Plt Count 322 MPV 10.2 Immature Gran % (Auto) 0.300 Neut % (Auto) 84.3 H Lymph % (Auto) 5.7 L Berks % (Auto) 9.2 Eos % (Auto) 0.1 Baso % (Auto) 0.4 Absolute Neuts (auto) 11.4 H Absolute Lymphs (auto) 0.77 L Nucleated RBC % 0 PT 34.7 H INR 3.4 APTT 36.3 H Sodium 137 Potassium 5.2 H Chloride 98 Carbon Dioxide 19.6 L Anion Gap 19 H BUN 66 H Creatinine 2.31 H Estim Creat Clear Calc 18.55 L Est GFR (MDRD) Non-Af 20 L BUN/Creatinine Ratio 28.7 H Glucose 157 H Calcium 9.5 Troponin T High Sens 46 H Troponin T Hi Sens 2 Hr 33 H NT pro BNP II 4839 H Radiography Diagnostic Testing: Clinical Impression(s) from Imaging Studies Chest X-Ray 04/16/25 12:00 IMPRESSION: Cardiomegaly and CHF. Small bilateral effusions right greater than left with bibasilar atelectasis worse on the right side. Reading Location: [facility] Discharge Plan Disposition Disposition: Acute Care Hospital [facility] Discharge Date/Time: 04/16/25 14:10 What to do if you have Problems For any increased pain, shortness of breath, bleeding, nausea or vomiting, chestpain, or any unexpected problems, contact your Primary Care Provider. Call [facility] ([phone]) or report to the closest Emergency Room. Call 911 if necessary. 04/16/25 5842 <Electronically signed by Nathan Castanon DO> Cosigner Signature (if applicable): CC: Dr. Meena Guerra MD ~ Signed [facility] Work Phone: 1(163) 156-611005-27-2025 History and physical note Author Ras Blas [facility] Note Date/Time April 16, 2025 2:19p m [facility] Medical Records Department [address] [place] [address] H&P Exam - Hospitalist 04/16/25 1413 MR#: [id number] Acct: [id number] Name: JESS JACKSON Rep #:[id number] : 1940 84 From: Ras Blas DO PCP: Dr. Meena Guerra MD Status:ADM I N Location: [place] [address] HPI - General General Date of Admission: 04/16/25 Date of Service: 04/16/25 Chief Complaint: Shortness of breath HPI Narrative JESS JACKSON, is a 84 F who presents shortness of breath. Symptoms began roughly about 2 days ago. Has had chronic lower extremity edema on that she feels also in her abdomen and buttocks. Has a history of A-fib and has previously been treated for pleural effusions and swelling. The patient presented to the emergency room and was diagnosed with CHF exacerbation and received a dose of 40 mg of IV furosemide in the hospital service was contacted for admission. Chest x-ray in the emergency room showed cardiomegaly and CHF. Small bilateral pleural effusions. [facility] Medical History Diabetes Kidney disease Non-smoker Venous (peripheral) insufficiency Atrial fibrillation CHF (congestive heart failure) Venous stasis ulcer Hyperpigmentation of skin Lipodermatosclerosis of both lower extremities Right leg swelling Left leg swelling Varicose veins of lower extremity with inflammation, 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 Chronic venous insufficiency Generalized osteoarthrosis History of right breast cancer Cardiomegaly Home Medications ?Medication ?Instructions ?Recorded ?Last Taken ?Type gabapentin 300 mg capsule 300 mg PO DAILY 09/30/17 History (Neurontin) levothyroxine 100 mcg tablet 100 mcg PO DAILY 09/30/17 04/16/25 History liraglutide 0.6 mg/0.1 mL (18 mg/3 1.2 mg SQ BREAKFAST 09/30/17 04/16/25 History mL) subcutaneous pen injector (Victoza 2-Elkin) lisinopril 40 mg tablet 40 mg PO DAILY 09/30/1703/22 History Held on 01/11/25. Instructions: Hold for SBP less than 130 mmHg. Follow with PCP and may decrease the dose to 10 mg daily. metformin 500 mg 24 hr 500 mg PO BID 09/30/1704/16 History tablet,extended release (gastric retention) pentoxifylline 400 mg 1 tab PO TID 09/30/17 History tablet,extended release acetaminophen 500 mg tablet 1,000 mg PO QHS PRN pain 0 01/08/25 Unknown History (Acetaminophen Extra Strength) cetirizine 10 mg tablet (24Hour 10 mg PO DAILY PRN all ergy symptoms 01/08/25 Unknown History Allergy) diosmin complex no.1 630 mg tablet 1 tab PO DAILY 12/2204/15/25 History (Vasculera) ufbzedgiqyah-dcgkcvmt-qmlked 1 tab PO DAILY 01/08/25 0 04/16/25 History tablet (A Thru Z High Potency tablet) simvastatin 20 mg tablet 20 mg PO QHS 01/08/25 History apixaban 5 mg tablet (Eliquis) 5 mg PO BID 90 days #18 0 tabs 01/23/25 04/16/25 Rx diltiazem HCl 240 mg 240 mg PO DAILY 3 months #90 caps 01/23/25 04/16/25 Rx capsule,extended release 24 hr (Cardizem CD) furosemide 40 mg tablet 40 mg PO DAILY 3 months #90 tabs 01/23/25 04/15/25 Rx metoprolol tartrate 50 mg tablet 50 mg PO BID 90 days #180 tabs 01/23/25 04/16/25 Rx biotin 5,000 mcg sublingual tablet 5,000 mcg sublingua l DAILY 04/16/25 04/15/25 History Allergy/AdvReac Type Severity Reaction Status Date / Time enoxaparin (From Lovenox) Allergy Unknown Verified 04/16/25 11:15 oxycodone Allergy Unknown Verified 04/16/25 11:15 Penicillins (PCN) Allergy Unknown Verified 04/16/25 11:15 Family History (Updated 04/16/25 @ 14:[address] Ras Blas DO) Other Heart disease Surgical History History of lumpectomy of right breast History of lumbar laminectomy History of total replacement of both hip joints History of total bilateral knee replacement (TKR) Social History Smoking Status: Never smoker ROS ROS Narrative No chest pain. All review of systems were negative except as mentioned above inthe history of present illness and the other review of systems. Vital Signs Vital Signs Vital Signs: 04/16/25 11:12 04/16/25 12:11 04/16/25 13:04 Temperature 36.5 C L Temperature Source Oral Pulse Rate 131 H Respiratory Rate 18 Respiratory Effort Respiratory Depth Respiratory Pattern Blood Pressure 93/66 Blood Pressure Mean 75 Pulse Ox 91 88 94 Oxygen Delivery Method Room Air Room Air Nasal Cannula Oxygen Flow Rate (L/min) 2 04/16/25 14:04 04/16/25 14:09 Temperature 36.6 C Temperature Source Pulse Rate 118 H Respiratory Rate 20 H Respiratory Effort Short of Breath Respiratory Depth Normal Respiratory Pattern Normal Blood Pressure 108/78 Blood Pressure Mean 88 Pulse Ox 94 Oxygen Delivery Method Room Air Oxygen Flow Rate (L/min) Weight Weight: 93.3 kg Body Mass Index (BMI) 38.8 Physical Exam Const alert and no apparent distress Constitutional Narrative: On oxygen. No respiratory distress. No conversational dyspnea. HEENT normocephalic and head/scalp atraumatic Eyes Eyes Narrative: No icterus. Glasses. Neck Neck Narrative: JVD. No thyromegaly. No lymphadenopathy. Resp Resp Narrative: Bibasilar crackles. Cardio regular rate and no murmurs GI normal to inspection, nondistended, normoactive bowel sounds and soft to palpation GI Narrative: Obese with pannus. Extremity Extremity Narrative: Bilateral tight lower extremity edema extending proximally upper thighs. Skin Skin Narrative: Chronic venous stasis changes to the lower extremities. Neuro Sensorium / Orientation: awake, alert and oriented to place Psych affect normal Results Lab / Micro Data 04/16/25 11:33 04/16/25 11:33 Labs: Laboratory Results - last 24 hr 04/16/25 11:33: WBC 13.5 H, RBC 4.73, Hgb 13.3, Hct 42.8, MCV 90.5, MCH 28.1, MCHC 31.1 L, RDW Std Deviation 56.1 H, RDW Coeff of Marcial 16.8 H, Plt Count 322, MPV 10.2, Immature Gran % (Auto) 0.300, Neut % (Auto) 84.3 H, Lymph % (Auto) 5.7L, [place] % (Auto) 9.2, Eos % (Auto) 0.1, Baso % (Auto) 0.4, Absolute Neuts (auto)11.4 H, Absolute Lymphs (auto) 0.77 L, Nucleated RBC % 0, PT 34.7 H, INR 3.4, APTT 36.3 H, Sodium 137, Potassium 5.2 H, Chloride 98, Carbon Dioxide 19.6 L, Anion Gap 19 H, BUN 66 H, Creatinine 2.31 H, Estim Creat Clear Calc 18.55 L, Est GFR (MDRD) Non-Af 20 L, BUN/Creatinine Ratio 28.7 H, Glucose 157 H, Calcium 9.5,Troponin T High Sens 46 H, NT pro BNP II 4839 H Imaging Radiology Impression Chest X-Ray 04/16/25 12:00 IMPRESSION: Cardiomegaly and CHF. Small bilateral effusions right greater than left with bibasilar atelectasis worse on the right side. Reading [facility] Assessment & Plan Assessment/Plan (1) (HFpEF) heart failure with preserved ejection fraction: PLAN: Acute echo from January 09 showed EF of 64% with right ventricular systolic pressure of 60 mmHg. With her FERMÍN and prominent edema throughout, may have started on furosemide dripand monitor closely. Will recheck an echocardiogram to see if there has been any change with her EF Fluid restrict 1.5 L/day. Daily weights. (2) FERMÍN (acute kidney injury): PLAN: I suspect due to hypoperfusion from her CHF and hopefully with diuresis that will improve. Will check urine studies If worse, consider kidney ultrasound and/or nephrology consultation. PLAN: Plan Chronic conditions * Diabetes mellitus type 2: Holding off on metformin given the FERMÍN. Continue Victoza. Sliding scale insulin. Check an A1c. * Hypothyroidism: Continue levothyroxine * A-fib: Continue with diltiazem and metoprolol tartrate. Continue anticoagulation with apixaban. * Obesity class II: Complicates care and recovery. VTE prophylaxis: Not indicated as patient is already anticoagulated. CODE STATUS: Addressed with the patient. Patient wished to be DNR Comfort Care arrest and is okay with intubation. Patient advised that she can change her mind anytime she so wishes. Charges/Coding Visit Charges Inpatient E&M: 60933 Init Hosp L3 04/16/25 1412 <Electronically signed by Ras Blas DO> Cosigner Signature (if applicable): CC: Dr. Meena Guerra MD; Dr. Ras Blas DO~ Signed [facility] Work Phone: 1(793) 340-559205-27-2025 Evaluation note* Diagnosis Onset Date Resolution Status Admit Date (HFpEF) heart failure with preserved ejection fraction acute April 16, 2025 1:59pm History of diabetes mellitus acute April 16, 2025 1:59pm History of hypothyroidism acute April 16, 2025 1:59pm FERMÍN (acute kidney injury) resolved April 16, 2025 1:59pm Atrial fibrillation with rap id ventricular response resolved April 16 1:59pm Pleural effusion resolved March 1:59pm (HFpEF) heart failure with preserved ejection fraction acute April 27, 2025 1:57am ABLA (acute blood loss anemia) resol abdirashid April 27, 2025 1:57am Atrial fibrillation with RVR resolve d April 27, 2025 1:57am GI (gastrointestinal bleed) resolved April 27, 2025 1:57am Melanotic stools resolved April 1:57am Pleural effusion resolved April 1:57am Transient hypotension resolved Sathish 2024 1:57am Chronic anticoagulation inactive J 2024 1:57am (HFpEF) heart failure with preserved ejection fraction acute May 08, 2025 10:54am Atrial fibrillation acute May 08, 2025 10:54am Hypotension acute May 08 10:54am Dyslipidemia chronic May 08 10:54am Hypertension chronic May 08 10:54am Atrial fibrillation acute May 15, 2025 7:59am Venous ulcer of right lower extremity with varicose veins acute Ju 2024 7:59am Lymphedema chronic May 15 7:59am PAD (peripheral artery disease) stripe matcher rachel May 15, 2025 7:59am Type 2 diabetes mellitus chronic May 15, 2025 7:59am 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 chronic Ju ne 2024 7:59am Atrial fibrillation acute June 05, 2025 9:21am Venous ulcer of right lower extremity with varicose veins acute Ju ly 2024 9:21am Lymphedema chronic June 05 9:21am PAD (peripheral artery disease) stripe matcher rachel June 05, 2025 9:21am Type 2 diabetes mellitus chronic June 05, 2025 9:21am 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 chronic Ju ly 2024 9:21am [facility] Work Phone: 1(241) 145-294605-27-2025 Radiology Diagnostic study note [facility] Imaging Services [address] [place] [address] [id number] Chest PA and Lateral MR#: [id number] Acct: [id number] Name: JESS JACKSON Rep #: [id number] : 1940 F 84 From: Ulises Richard MD PCP: Dr. Meena Guerra MD Status: REG E R Study:Chest PA and Lateral Date of Exam: 04/16/25 Exam# [id number] Ordering Dr: Nathan Torres DO PROCEDURE: CHEST [...] worse on the right side. Reading Location: [facility]-1 CC: Dr. Nathan Castanon DO; Dr. Meena Guerra MD ~ Senior Manager Quality Assurance: Signed [facility]04-14-2025 NoteAcmc Healthcare System04-14-2025 History of Present illness Narrative* Meena Guerra MD - 03/04/2025 1:07 PM EDT Reason for Visit Follow up PHIL Madrigal is a 84-year-old female with a history of hypothyroidism, atrial fibrillation, and type 2 diabetes mellitus, presenting for follow-up. Kaitlin reports a recent TSH level of 4.4 IU/mL. She denies missing any doses of levothyroxine, exceptduring a recent 3-day hospitalization where she was not administered her usual medications orally. She resumed her medication regimen immediately upon discharge. She inquires about the possibility oftaking a double dose of levothyroxine to normalize [...] metoprolol and Eliquis. Cardioversion deemed unnecessary by mangle operator garments. - Continue metoprolol and Eliquis. - Consider using an Apple Watch for heart rate monitoring with alerts set for heart rates >100 bpm. - Discussed the importance of anticoagulation to prevent thromboembolic events. - Follow up with cardiology as needed. Voice recognition software was used to compose this office note. Please excuse any unintended typographical errors. Recording using ambient [email or web address] software for draft documentation of the visit was discussed with the patient/authorized operations support representative; all questions welcomed and answered. Patient/authorized operations support representative agreed to proceed Meena Guerra MD documented in this encounterAult[facility]04-14-[facility]25 Telephone encounter Note * Telephone Encounter - Mckayla Card RN - 03/04/2025 12:26 PM EDT The patient has been identified [...] Card RN March 04, 2025 12:27 PM [facility]04-14-2025 Miscellaneous Notes* Telephone Encounter - Mckayla Card RN - 03/04/2025 12:26 PM EDT The patient has been identified [...] 04, 2025 12:27 PM documented in this encounterAultman Orr[facility]04-14-2025 Instructions* Patient Instructions* Meena Guerra MD - 03/04/2025 10:37 AM EDT [...] can double the dose the next day tocatch up. We discussed your medications: - Restart lisinopril to help manage your blood pressure. [facility] - Continue taking metformin, but reduce the [...] the dose, cut the pill in half andtake half a pill daily for one week. [...] discussed your atrial fibrillation (AFib): - The mangle operator garments has recommended continuing with your current medications [...] rate exceeds 100 beats per minute to avoidunnecessary alarms. We discussed your diet and potassium: [...] [facility] documented in this encounterAultman [facility]04-11-2025 NoteAcmc Healthcare System04-11-2025 History of Present illness Narrative* Miranda Romano - 03/01/2025 2:58 PM EDT Last saw pcp: 01/08/25 Subjective: Patient presents [...] is to RTC in 3-4 months. Miranda Romano DPM documented in this encounterAultman Orrville [facility]04-11-2025 Instructions* Patient Instructions* Miranda Romano - 03/01/2025 2:58 PM EDT Diabetes Foot [...] (or decreased sensation in your feet) a bookbinder chief should always cut your toenails. Be Careful [...] Go to your health care provider or bookbinder chief to treat these conditions. documented in this encounterAultman [facility]04-03-2025 Telephone encounter Note * Telephone Encounter - Sarita Doty RN - 02/21/2025 11:03 AM EDT The patient has been identified by [...] Doty RN February 21, 2025 11:04 AM [facility]04-03-2025 Miscellaneous Notes* Telephone Encounter - Sarita Doty RN - 02/21/2025 11:03 AM EDT The patient has been identified by [...] 21, 2025 11:04 AM documented in this encounterAultman Orrville [facility]03-13-2025 Radiology Diagnostic study note [facility] Imaging Services [address] [place] [address] [id number] Chest PA and Lateral MR#: [id number] Acct: [id number] Name: JESS JACKSON Rep #: [id number] : 1940 F 84 From: Malgorzata Guerrero MD PCP: Dr. Meena Guerra MD Status: REG C JOSE Study:Chest PA and Lateral Date of Exam: 01/31/25 Exam# [id number] Ordering Dr: Magdi Thomas EXAM: XR Chest, [...] effusion. Decreased left pleural effusion. Reading [facility] CC: Dr. Meena Guerra MD; DAVIDSON Lomeli ~ Senior Manager Quality Assurance: Signed [facility]03-05-2025 Evaluation note* Diagnosis Onset Date Resolution Status Admit Date Dyslipidemia chronic January 23 10:50am Hypertension chronic January 23 10:50am Atrial fibrillation with rap id ventricular response resolved January 23, 2025 10:50am Pleural effusion resolved January 10:50am (HFpEF) heart failure with preserved ejection fraction acute April 16, 2025 1:59pm History of diabetes mellitus acute April 16, 2025 1:59pm History of hypothyroidism acute April 16, 2025 1:59pm FERMÍN (acute kidney injury) resolved April 16, 2025 1:59pm Atrial fibrillation with rap id ventricular response resolved April 16 1:59pm Pleural effusion resolved March 1:59pm (HFpEF) heart failure with preserved ejection fraction acute April 27, 2025 1:57am ABLA (acute blood loss anemia) resol abdirashid April 27, 2025 1:57am Atrial fibrillation with RVR resolve d April 27, 2025 1:57am GI (gastrointestinal bleed) resolved April 27, 2025 1:57am Melanotic stools resolved April 1:57am Pleural effusion resolved April 1:57am Transient hypotension resolved Apr 1:57am Chronic anticoagulation inactive J 2024 1:57am (HFpEF) heart failure with preserved ejection fraction acute May 08, 2025 10:54am Atrial fibrillation acute May 08, 2025 10:54am Hypotension acute May 08 10:54am Dyslipidemia chronic May 08 10:54am Hypertension chronic May 08 10:54am Atrial fibrillation acute May 15, 2025 7:59am Venous ulcer of right lower extremity with varicose veins acute Ju 2024 7:59am Lymphedema chronic May 15 7:59am PAD (peripheral artery disease) stripe matcher rachel May 15, 2025 7:59am Type 2 diabetes mellitus chronic May 15, 2025 7:59am 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 chronic Ju 2024 7:59am [facility] Work Phone: 1(805) 677-168903-04-2025 NoteAcmc Healthcare System03-04-2025 History of Present illness Narrative* Meena Guerra MD - 01/22/2025 3:32 PM EST Reason for Visit Patient presents with: Hospital F/U: Hospital [facility] f/u, anuradha malin Jess Jackson is a 82 year old female [...] 40 mg. She is follow-up tomorrow with [facility] cardiology group. She has lost almost [...] think she is needs to go to jail at this point. May be some help [...] sentinel node biopsy - Dr. Reynolds - [facility] PAST SURGICAL HISTORY OF Right 02/20/2013 Right [facility] REVISE MEDIAN N/CARPAL TUNNEL SURG Right [facility] - 2019? FAMILY HISTORY Problem Relation Age [...] tablet simvastatin (ZOCOR) 20 mg tablet Insulin Cooter, Disposable, (BD ULTRA-FINE MARCELO PEN NEEDLE) 32 [...] changes in water. Will follow-up in a couplemonths Meena Guerra MD documented in this encounterAultman Orrville [facility]02-21-2025 [facility]02-20-2025 NoteAcmc Healthcare System02-20-2025 History of Present illness Narrative* Brigitte Abel RN - 01/10/2025 10:11 AM ESTSummary: ED utilization review per request of payor ACM MIRANDA RN Patient identified by name and date of . Reason for review or outreach: Chart Review Miranda Priority Emergency Department Utilization REQUESTED ACTION/FYI: Please see ED Utilization summary below A follow-up appointment is noted to be scheduled on 03/04/25. Patient currently admitted at [facility] 01/08/25. Plan to F/U at discharge Exclusion [...] patient: No, Chart review only. Signature: Brigitte LAWRENCE,RN,CCCTM Compliance Aide Management Contract RN [phone] documented in this encounterAultman Orrville Hospital02-18-2025 Evaluation note* Diagnosis Onset Date Resolution Status Admit Date Atrial fibrillation with rap id ventricular response acute January 082024 12:50pm CHF (congestive heart failure) acute January 08, 2025 12:50pm Hypertension chronic December 12:50pm Hypothyroidism chronic December 222024 12:50pm Type 2 diabetes mellitus chronic January 08, 2025 12:50pm Pleural effusion on right resolved January 08, 2025 12:50pm Atrial fibrillation with rap id ventricular response acute January 23, 2025 10:50am Pleural effusion acute January 10:50am Dyslipidemia chronic January 23, 025 10:50am Hypertension chronic January 23, 025 10:50am [facility] Work Phone: 1(930) 119-482402-18-2025 Evaluation note* Diagnosis Onset Date Resolution Status Admit Date Atrial fibrillation with rap id ventricular response acute January 082024 12:50pm CHF (congestive heart failure) acute January 08, 2025 12:50pm Hypertension chronic December 12:50pm Hypothyroidism chronic December 222024 12:50pm Type 2 diabetes mellitus chronic January 08, 2025 12:50pm Pleural effusion on right resolved January 08, 2025 12:50pm Atrial fibrillation with rap id ventricular response acute January 23, 2025 10:50am Pleural effusion acute January 10:50am Dyslipidemia chronic January 23, 025 10:50am Hypertension chronic January 23, 025 10:50am (HFpEF) heart failure with preserved ejection fraction acute April 16, 2025 1:59pm FERMÍN (acute kidney injury) acute April 16, 2025 1:59pm Atrial fibrillation with rap id ventricular response acute April 16, 025 1:59pm History of diabetes mellitus acute April 16, 2025 1:59pm History of hypothyroidism acute April 16, 2025 1:59pm Pleural effusion acute March 1:59pm [facility] Work Phone: 1(822) 203-899602-18-2025 Evaluation note* Diagnosis Onset Date Resolution Status Admit Date Atrial fibrillation with rap id ventricular response acute January 082024 12:50pm CHF (congestive heart failure) acute January 08, 2025 12:50pm Hypertension chronic December 12:50pm Hypothyroidism chronic December 222024 12:50pm Type 2 diabetes mellitus chronic January 08, 2025 12:50pm Pleural effusion on right resolved January 08, 2025 12:50pm Atrial fibrillation with rap id ventricular response acute January 23, 2025 10:50am Pleural effusion acute January 10:50am Dyslipidemia chronic January 23, 025 10:50am Hypertension January 23 025 10:50am (HFpEF) heart failure with preserved ejection fraction acute April 16, 2025 1:59pm FERMÍN (acute kidney injury) acute April 16, 2025 1:59pm Atrial fibrillation with rap id ventricular response acute April 16 1:59pm History of diabetes mellitus acute April 16, 2025 1:59pm History of hypothyroidism acute April 16, 2025 1:59pm Pleural effusion acute March 1:59pm Atrial fibrillation with RVR acute April 27, 2025 1:57am Chronic anticoagulation acute 2024 1:57am GI (gastrointestinal bleed) acute April 27, 2025 1:57am Melanotic stools acute April 1:57am Transient hypotension acute Apr 1:57am [facility] Work Phone: 1(215) 678-979302-18-2025 Evaluation note* Diagnosis Onset Date Resolution Status Admit Date Atrial fibrillation with rap id ventricular response acute January 082024 12:50pm CHF (congestive heart failure) acute January 08, 2025 12:50pm Hypertension chronic December 12:50pm Hypothyroidism chronic December 222024 12:50pm Type 2 diabetes mellitus chronic January 08, 2025 12:50pm Pleural effusion on right resolved January 08, 2025 12:50pm Atrial fibrillation with rap id ventricular response acute January 23, 2025 10:50am Pleural effusion acute January 10:50am Dyslipidemia chronic January 23, 025 10:50am Hypertension chronic January 23 025 10:50am (HFpEF) heart failure with preserved ejection fraction acute April 16, 2025 1:59pm FERMÍN (acute kidney injury) acute April 16, 2025 1:59pm Atrial fibrillation with rap id ventricular response acute April 16 025 1:59pm History of diabetes mellitus acute April 16, 2025 1:59pm History of hypothyroidism acute April 16, 2025 1:59pm Pleural effusion acute March 1:59pm (HFpEF) heart failure with preserved ejection fraction acute April 27, 2025 1:57am ABLA (acute blood loss anemia) acute April 27, 2025 1:57am Atrial fibrillation with RVR acute April 27, 2025 1:57am Chronic anticoagulation acute 2024 1:57am GI (gastrointestinal bleed) acute April 27, 2025 1:57am Melanotic stools acute April 1:57am Pleural effusion acute April 1:57am Transient hypotension acute Apr 1:57am [facility] Work Phone: 1(108) 772-438102-18-2025 Evaluation note* Diagnosis Onset Date Resolution Status Admit Date CHF (congestive heart failure) acute January 08, 2025 12:50pm Hypertension chronic December 12:50pm Hypothyroidism chronic December 222024 12:50pm Type 2 diabetes mellitus chronic January 08, 2025 12:50pm Atrial fibrillation with rap id ventricular response resolved January 082024 12:50pm Pleural effusion on right resolved January 08, 2025 12:50pm Dyslipidemia chronic January 23 10:50am Hypertension chronic January 23 10:50am Atrial fibrillation with rap id ventricular response resolved January 23, 2025 10:50am Pleural effusion resolved January 10:50am (HFpEF) heart failure with preserved ejection fraction acute April 16, 2025 1:59pm History of diabetes mellitus acute April 16, 2025 1:59pm History of hypothyroidism acute April 16, 2025 1:59pm FERMÍN (acute kidney injury) resolved April 16, 2025 1:59pm Atrial fibrillation with rap id ventricular response resolved April 16, 2 025 1:59pm Pleural effusion resolved March 1:59pm (HFpEF) heart failure with preserved ejection fraction acute April 27, 2025 1:57am ABLA (acute blood loss anemia) resol abdirashid April 27, 2025 1:57am Atrial fibrillation with RVR resolve d April 27, 2025 1:57am GI (gastrointestinal bleed) resolved April 27, 2025 1:57am Melanotic stools resolved April 1:57am Pleural effusion resolved April 1:57am Transient hypotension resolved Sathish e 2024 1:57am Chronic anticoagulation inactive J [facility] 2024 1:57am [facility] Work Phone: 1(609) 442-9565485594-20-3127 NoteAcmc Healthcare System02-18-2025 History of Present illness Narrative* Meena Guerra MD - 01/08/2025 9:15 AM EST [...] with exertion heart rate elevated and irregular Jess Jackson is a 82 year old female [...] REVISE MEDIAN N/CARPAL TUNNEL SURG Right [facility] - 2018? FAMILY HISTORY Problem Relation Age [...] acetonide (NASACORT) 55 mcg nasal inhaler Insulin Cooter, Disposable, (BD ULTRA-FINE MARCELO PEN NEEDLE) 32 [...] dyspnea she was sent to the ER Meena Guerra MD documented in this encounterAultman [facility]02-01-2025 NoteA[facility] System02-01-2025 History of Present illness Narrative* Mac Jarrett MD - 12/22/2024 1:34 PM EST Patient [...] tablet by mouth daily at bedtime. Insulin Cooter, Disposable, (BD ULTRA-FINE MARCELO PEN NEEDLE) 32 [...] and throat if postnasal drainage persists. Mac Jarrett MD documented in this encounterAultman Orr[facility]01-27-2025 Telephone encounter Note * Telephone Encounter - Laura Victoria LPN - 12/17/2024 4:53 PM EST Spoke with pt and information listed below given. Pt verbalizes understanding. Laura Victoria LPN [facility]01-27-2025 Miscellaneous Notes* Telephone Encounter - Laura [...] Mckayla Card RN * Telephone Encounter - Jose Arreola APRN.GIL - 12/17/2024 9:10 AM EST [...] able to increase the dose. Thank you Jose Arreola APRN.CNP * Telephone Encounter - Sharon Hadley LPN - 12/14/2024 3:13 PM EST Patient returned call and went over notes below from Jose Arreola RESIN MAKER. Patient said she has 4 weeks of victoza at home. She wants to know what Jose thinks if she should finish it ? [...] 2024 10:22 AM * Telephone Encounter - Jose Arreola APRN.CNP - 12/14/2024 9:53 AM EST Yes the fluticasone nasal spary is fine to start. 2 sprays each nostril before bed. Rinse out your throat after use. Does she want to start ozempic now or wait until finished with her victoza? Thank you Jose Arreola APRN.CNP * Telephone Encounter - Elenita Ponce RN [...] call. ZANE Dominguez * Telephone Encounter - Meena Guerra MD - 12/12/2024 6:22 PM EST It is great that she is offered ozempic, would the patient like to try that? Would be easier for her Regards, Meena Guerra MD * Telephone Encounter - Elenita Ponce RN - 12/12/2024 3:29 PM EST [employer] calls with patient to notify of below. Let patient and operations support representative know that request is pending provider review. If provider would like to appeal for Victoza instead of changing to formulary prescription phone number is [phone]. Elenita Ponce RN * Telephone Encounter - [...] or Trulicity. This decision was from the [employer] NonPreferred GLP-1 Agonists and GLP-1/GIP Agonists Pharmacy Coverage Policy at [employer]. * Telephone Encounter - Michelle Medeiros LPN [...] or Trulicity. This decision was from the [employer] Non-Preferred GLP-1 Agonists and GLP-1/GIP Agonists Pharmacy Coverage Policy at [employer]. Payer: [facility] [phone] Notes Time User Attachment Attachment received from payer. 12/11/2024 4:02 PM [facility], Rx Priorauth In Document Waiting for Payer Response 12/11/2024 12:19 PM Deadline to reply: December 26, 2024 Sending user: Michelle Medeiros LPN Note to payer: Pt is 84 year old stable with current DM treatment. See office notes and A1c results. Payer: [email or web address] Attachment: Document: ePA Attachment liraglutide (VICTOZA) 0.6 mg/ 0.1 ml subcutaneous pen injector 12/11/2024-12:18 PM Nonpreferred GLP1 Agonists MPA Standard Prior Auth documented in this encounterAultman Orrville Hospital01-27-2025 Telephone encounter Note * Telephone Encounter - Mckayla Card RN - 12/17/2024 4:37 PM EST Called and left a voicemail for the Patient to call back and ask for a nurse to receive the providers message. Mckayla Card RN [facility]01-27-2025 Telephone encounter Note* Telephone Encounter - Jose Arreola APRN.GIL - 12/17/2024 9:10 AM EST [...] able to increase the dose. Thank you Jose Arreola APRN.MENTAL HEALTH CASE MANAGER [facility]01-24-2025 Telephone encounter Note* Telephone Encounter - Sharon Hadley LPN - 12/14/2024 3:13 PM EST Patient returned call and went over notes below from Jose Arreola RESIN MAKER. Patient said she has 4 weeks of victoza at home. She wants to know what Jose thinks if she should finish it ? She is also asking if she should still be taking the Coricidin HBP soft gels with the Fluticasone nasal spray? [facility]01-24-2025 Telephone encounter Note* Telephone Encounter - Isabel Lagos LPN - 12/14/2024 10:22 AM EST Called and left message for patient to call office back for update of note below. Isabel YolisGARCIA December 14, 2024 10:22 AM [facility]01-24-2025 Telephone encounter Note* Telephone Encounter - Jose Arreola APRN.CNP - 12/14/2024 9:53 AM EST Yes the fluticasone nasal spary is fine to start. 2 sprays each nostril before bed. Rinse out your throat after use. Does she want to start ozempic now or wait until finished with her victoza? Thank you Jose Arreola APRN.GIL [facility]01-23-2025 Telephone encounter Note* Telephone Encounter - [...] or any respiratory symptoms. Elenita Ponce RN [facility]01-23-2025 Telephone encounter Note* Telephone Encounter - Sheela De Santiago OCCA - 12/13/2024 9:50 AM EST TC no answer. Left VM to return call. ZANE Dominguez [facility]01-22-2025 Telephone encounter Note* Telephone Encounter - Meena Guerra MD - 12/12/2024 6:22 PM EST It is great that she is offered ozempic, would the patient like to try that? Would be easier for her Regards, Meena Guerra MD [facility]01-22-2025 Telephone encounter Note* Telephone Encounter - Elenita Ponce RN - 12/12/2024 3:29 PM EST [employer] calls with patient to notify of below. Let patient and operations support representative know that request is pending provider review. If provider would like to appeal for Victoza instead of changing to formulary prescription phone number is [phone]. Elenita Ponce, RN [facility]01-21-2025 Telephone encounter Note* Telephone Encounter - [...] or Trulicity. This decision was from the [employer] NonPreferred GLP-1 Agonists and GLP-1/GIP Agonists Pharmacy Coverage Policy at [employer]. [facility]01-21-2025 Telephone encounter Note* Telephone Encounter - [...] or Trulicity. This decision was from the [employer] Non-Preferred GLP-1 Agonists and GLP-1/GIP Agonists Pharmacy Coverage Policy at [employer]. Payer: [employer] [phone] Notes Time User Attachment Attachment received from payer. 12/11/2024 4:02 PM [facility], Rx Priorauth In Document Waiting for Payer Response 12/11/2024 12:19 PM Deadline to reply: December 26, 2024 Sending user: Michelle Medeiros LPN Note to payer: Pt is 84 year old stable with current DM treatment. See office notes and A1c results. Payer: [employer] [phone] Attachment: Document: ePA Attachment liraglutide (VICTOZA) 0.6 mg/ 0.1 ml subcutaneous pen injector 12/11/2024-12:18 PM Nonpreferred GLP1 Agonists MPA Standard Prior Auth [facility]11-27-2024 Telephone encounter Note* Telephone Encounter - Betsy Abad RN - 10/17/2024 1:03 PM EST Form signed, faxed back to [facility] with positive confirmation, and placed in scanning. [facility]11-27-2024 Miscellaneous Notes* Telephone Encounter - Betsy Abad RN - 10/17/2024 1:03 PM EST Form signed, faxed back to [employer] with positive confirmation, and placed in scanning. * Telephone Encounter - Betsy Abad RN - 10/15/2024 9:29 AM EST Received Letter of Medical Necessity form from [employer]. Placed in Warren's folder for completion. * Telephone Encounter - Olena Escobar RN - 09/27/2024 9:19 AM EST ----- Message ----- From: Kelly Jeong APRN-MENTAL HEALTH CASE MANAGER Sent: 09/26/2024 4:46 PM EST To: Olena Escobar RN Note updated and refaxed to [phone] * Telephone Encounter - Susana Rogers - 09/26/2024 10:52 AM EST Received call from Allison with [employer]. States for lymphedema pump they are needing filled conservative therapy for 4 weeks, compression elevation exercise, and most recent office visit note. Callback [phone] ext [phone] * Telephone Encounter - Betsy Abad RN - 09/17/2024 8:08 AM EDT Pump order faxed along with demographics page and NURIS note to [employer] with positive confirmation, and placed in scanning. documented in this encounterOSProm[facility]11-[facility] Telephone encounter Note* Telephone Encounter - Betsy Abad RN - 10/15/2024 9:29 AM EST Received Letter of Medical Necessity form from [employer]. Placed in Warren's folder for completion. [facility]11-25-2024 Miscellaneous Notes* Telephone Encounter - Btesy Abad RN - 10/15/2024 9:29 AM EST Received Letter of Medical Necessity form from [employer]. Placed in Kelly's folder for completion. * Telephone Encounter - Olena Escobar RN - 09/27/2024 9:19 AM EST ----- Message ----- From: Kelly Jeong APRN-MENTAL HEALTH CASE MANAGER Sent: 09/26/2024 4:46 PM EST To: Olena Escobar RN Note updated and refaxed to [phone] * Telephone Encounter - Susana Rogers - 09/26/2024 10:52 AM EST Received call from Allison with [employer]. States for lymphedema pump they are needing filled conservative therapy for 4 weeks, compression elevation exercise, and most recent office visit note. Callback [phone] ext [phone] * Telephone Encounter - Betsy Abad RN - 09/17/2024 8:08 AM EDT Pump order faxed along with demographics page and NURIS note to [employer] with positive confirmation, and placed in scanning. documented in this encounterOSU [facility] Miscellaneous Notes* Telephone Encounter - Betsy Abad RN - 10/15/2024 9:29 AM EST Received Letter of Medical Necessity form from [employer]. Placed in Warren's folder for completion. * Telephone Encounter - Olena Escobar RN - 09/27/2024 9:19 AM EST ----- Message ----- From: MARY Martinez Sent: 09/26/2024 4:46 PM EST To: Olena Escobar RN Note updated and refaxed to [phone] * Telephone Encounter - Susana Rogers - 09/26/2024 10:52 AM EST Received call from Allison with [employer]. States for lymphedema pump they are needing filled conservative therapy for 4 weeks, compression elevation exercise, and most recent office visit note. Callback [phone] ext [phone] * Telephone Encounter - Betsy Abad RN - 09/17/2024 8:08 AM EDT Pump order faxed along with demographics page and NURIS note to [employer] with positive confirmation, and placed in scanning. documented in this encounterOSU [facility] Instructions* Patient Instructions* Miranda Romano - 10/11/2024 3:12 PM EST Diabetes Foot [...] (or decreased sensation in your feet) a bookbinder chief should always cut your toenails. Be Careful [...] Go to your health care provider or bookbinder chief to treat these conditions. documented in this encounterAultman [facility]11-[facility] History of Present illness Narrative* Miranda Romano - 10/11/2024 3:11 PM EST Last saw [...] is to RTC in 3-4 months. Miranda Romano DPM * Mckayla Ayala RN - 10/11/2024 2:19 PM EST Patient presents with: Left Foot - Established Patient, Follow Up, Diabetic Foot Care Right Foot - Established Patient, Follow Up, Diabetic Foot Care Patient presents for follow up diabetic foot/nail care. Right big toe has history of ingrowns and is tender. NURIS 03/30/24 documented in this encounterAultman [facility]11-21-2024 [facility]-2024 NoteA[facility]11-15-2024 Telephone encounter Note* Telephone Encounter - Sarita [...] Doty RN October 05, 2024 3:14 PM [facility]11-15-2024 Miscellaneous Notes* Telephone Encounter - Sarita [...] 05, 2024 3:14 PM documented in this encounterAultman [facility]11-07-2024 Telephone encounter Note * Telephone Encounter - Olena Escobar RN - 09/27/2024 9:19 AM EST ----- Message ----- From: Kelly Jeong APRN-MENTAL HEALTH CASE MANAGER Sent: 09/26/2024 4:46 PM EST To: Olena Escobar RN Note updated and refaxed to [phone] [facility] Telephone encounter Note* Telephone Encounter - Susana Rogers - 09/26/2024 10:52 AM EST Received call from DaoliCloud with [employer]. States for lymphedema pump they are needing filled conservative therapy for 4 weeks, compression elevation exercise, and most recent office visit note. Callback [phone] ext [phone] [facility] Miscellaneous Notes* Telephone Encounter - Susana Rogers - 09/26/2024 10:52 AM EST Received call from [employer] with [employer]. States for lymphedema pump they are needing filled conservative therapy for 4 weeks, compression elevation exercise, and most recent office visit note. Callback [phone] ext [phone] * Telephone Encounter - Betsy Abad RN - 09/17/2024 8:08 AM EDT Pump order faxed along with demographics page and NURIS note to [employer] with positive confirmation, and placed in scanning. documented in this encounterC[facility]-2024 NoteAcmc Healthcare System11-05-2024 History of Present illness Narrative* Mariana Doan MA - 09/25/2024 11:12 AM EST POPULATION HEALTH NAVIGATION OUTREACH Action/FYI msg to schedule wellness, diabetic retinal eye exam Reason for Outreach Care Gap/HCC or Scheduling Wellness Visits Care Gaps due: Medicare Annual Wellness Visit Diabetic Eye Exam Patient Contacted: Unable or unnecessary to reach patient: Left message Stormpathhart message sent Navigation Signature: Mariana Doan MA September 25, 2024 11:12 AM documented in this encounterAultman [facility]10-28-2024 Telephone encounter Note * Telephone Encounter - Betsy Abad RN - 09/17/2024 8:08 AM EDT Pump order faxed along with demographics page and NURIS note to [employer] with positive confirmation, and placed in scanning. [facility]10-21-2024 History of Present illness Narrative* Kelly Jeong, EPI-MENTAL HEALTH CASE MANAGER - 09/10/2024 2:00 PM EDT Jess Jackson is a 83 y.o. female who was seen on 09/10/2024 for evaluation of: Lipodermatosclerosis Last seen 01/24/23 Interval History LE Symptoms: Left >> Right lower extremity swelling, discoloration, pain, and hardness. Feet to calves Developed drainage from her legs after her last office visit while she was in [place] in a remote location in the [facility] Her PCP put her on [...] ontains abnormal data COMPREHENSIVE METABOLIC PANEL Order: [id number] Component Ref Range & Units 8 d [...] 1356 BP: 155/62 Pulse: 84 SpO2: 97% Jess's body mass index is 36.47 kg/m . [...] is within normal limits and unremarkable. No deborah-oral furrowing. No facial telangiectasias. Her neck is [...] left/negative on right Hyperkeratosis/cutaneous fibrosis: Y BL ccwv-qybjous-btvi-right Excessive local fat deposition: N Left toes [...] BL Leg ulcerations: N BL Panniculitis/lipodermatosclerosis:Y BL ljyl-amqqsuq-rqym-right. Tinea pedis: N Impression 1. 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 female who was seen on 09/10/2024 for evaluation of: Lipodermatosclerosis Last seen 01/24/23 Interval History LE Symptoms: Left >> Right lower extremity swelling, discoloration, pain, and hardness. Feet to calves Developed drainage from her legs after her last office visit while she was in [place] in a remote location in the [facility] Her PCP put her on [...] ontains abnormal data COMPREHENSIVE METABOLIC PANEL Order: [id number] Component Ref Range & Units 8 d [...] DCIS Hypertension Malignant neoplasm of female breast 2008 Right breast DCIS Preop cardiovascular exam Radiation [...] 1356 BP: 155/62 Pulse: 84 SpO2: 97% Jess's body mass index is 36.47 kg/m . [...] is within normal limits and unremarkable. No deborah-oral furrowing. No facial telangiectasias. Her neck is [...] left/negative on right Hyperkeratosis/cutaneous fibrosis: Y BL xfcb-ggyefmy-nhfi-right Excessive local fat deposition: N Left toes are phenotypically Abnormal with exaggerated dorsal skin creases and squaring Lymphostatic verrucosis/nodules: N BL Elephantiasis: N BL Cellulitis: N BL Lymphorrhea: N BL Xeroderma: N BL Peau d' orange [dimpled or orange peel appearance]: N Varicose, reticular, or spider veins: Y BL Stasis hyperpigmentation: Y BL Stasis dermatitis: Y BL Atrophie cta: N BL Leg ulcerations: N BL Panniculitis/lipodermatosclerosis:Y BL dnep-cdwzzal-oxdg-right. Tinea pedis: N Impression 1. 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 [facility]10-21-2024 Miscellaneous Notes* Telephone Encounter - Tomeka [...] 09/08/2024 10:05 AM EDT ----- Message from Meena Guerra MD sent at 09/07/2024 5:35 PM EDT ----- No major concerns with your labs they look stable.' Regards, eMena Guerra MD documented in this encounterAultman [facility]10-21-2024 History of Present illness Narrative* Nallely [...] , d/t neuropathy. Patient offered a medical rotary adjuster for sensitive exam. Patient declined rotary adjuster. * Amy Carreon, ANCIENT ART CURATOR-MENTAL HEALTH CASE MANAGER - 09/10/2024 12:00 PM EDT Date of Service: 09/10/2024 History of Present Illness: Chief Complaint Patient presents with Follow-up One year follow up with imaging. Jess Jackson is a 83 y.o. 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 Today, 09/10/24, Jess Jackson has no new breast or chest [...] mobility issues, or bone pain. 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 In March 03, 2009 she was treated with a right breast lumpectomy and sentinel lymph node biopsy. She did have adjuvant radiation therapy to her right breast. I have reviewed Jess's medical, surgical and other pertinent history in [...] her clinical situation. Impression and Plan: Impression: Jess Jackson is a 83 y.o. postmenopausal female [...] Clement with annual mammogram. documented in this [facility]10-21-2024 History of Present illness Narrative* Thea Philip - 09/10/2024 11:00 AM EDT Patient offered a medical rotary adjuster for sensitive exam. Pt declined documented in this [facility]10-19-2024 Telephone encounter Note* Telephone Encounter - Sharon Hadley LPN - 09/08/2024 10:07 AM EDT Phoned patient left message to return call and ask to speak to a nurse. [facility]10-19-2024 Telephone encounter Note* Telephone Encounter - Sharon Hadley LPN - 09/08/2024 10:05 AM EDT ----- Message from Meena Guerra MD sent at 09/07/2024 5:35 PM EDT ----- No major concerns with your labs they look stable.' Regards, Meena Guerra MD [facility]10-10-2024 NoteAcmc Healthcare System10-10-2024 History of Present illness Narrative* Meena Guerra MD - 08/30/2024 3:05 PM EDT Reason for Visit Patient presents with: F/U 6 months: Bilateral legs wounds, seen in [place], better now, usually sees Dr Carlos Shaw for skin. Jess Jackson is a 82 year old female [...] sentinel node biopsy - Dr. Reynolds - [facility] PAST SURGICAL HISTORY OF Right 02/20/2013 Right TKA REVISE MEDIAN N/CARPAL TUNNEL SURG Right [facility]? FAMILY HISTORY Problem Relation Age of Onset [...] tablet simvastatin (ZOCOR) 20 mg tablet Insulin Cooter, Disposable, (BD ULTRA-FINE MARCELO PEN NEEDLE) 32 [...] Shaw coming up and to keep that. Meena Guerra MD documented in this encounterAultman [facility]08-13-2024 Telephone encounter Note * Telephone Encounter [...] Card RN July 03, 2024 12:38 PM [facility]08-13-2024 Miscellaneous Notes* Telephone Encounter - Mckayla [...] 03, 2024 12:38 PM documented in this encounterAultman [facility]05-23-2024 History of Present illness Narrative* Jose Arreola APRN.MENTAL HEALTH CASE MANAGER - 04/12/2024 8:23 AM EDT CC: Patient presents with: Recheck: Follow up BP HPI Jess Jackson is a 83 year old female [...] with average BP's in the 110s-140s/70s range. Jess stays physically active with house work. She [...] and unspecified hyperlipidemia PVD (peripheral vascular disease) ([facility]) Special screening for malignant neoplasms, colon 12/12/2014 [...] sentinel node biopsy - Dr. Reynolds - [facility] PAST SURGICAL HISTORY OF Right 02/20/2013 Right TKA REVISE MEDIAN N/CARPAL TUNNEL SURG Right [facility] - 2019? ALLERGIES Lovenox [Enoxaparin Sodium], Oxycontin [...] tablet by mouth daily at bedtime. Insulin Cooter, Disposable, (BD ULTRA-FINE MARCELO PEN NEEDLE) 32 gauge x / USE ONE NEEDLE FOR EACH DOSE ONCE [...] up in August after returning from the [place] - will continue to check BP and call if consistently greater than 140/80 Prescription instructions reviewed with patient as applicable. Potential red flag symptoms discussed with the patient. Reviewed appropriate action plan to take if red flag symptoms occur. Patient agreeable to treatment plan. Jose Arreola APRN.MENTAL HEALTH CASE MANAGER documented in this encounterAultman [facility]05-15-2024 History of Present illness Narrative* Argentina Escobar PA-C - 04/04/2024 11:47 AM EDT Jess Jackson is now 7 weeks s/p left [...] prn Argentina Escobar PA-C documented in this encounterAultman [facility]05-10-2024 History of Present illness Narrative* Miranda Romano - 03/30/2024 11:44 AM EDT Last saw [...] presents to clinic ambulating in [facility] Vasc: DP and PT pulses are [...] is to RTC in 3-4 months. Miranda Romano DPM * Emilie Hunt RN - 03/30/2024 11:05 AM EDT Patient presents with: Left Foot - Established Patient, Diabetic Foot Care Right Foot - Established Patient, Diabetic Foot Care documented in this encounterAultman [facility]05-09-2024 History of Present illness Narrative* Elizabeth Jackson MA - 03/29/2024 11:30 AM EDT BP Manual readin/70 Pulse: 66 LEFT arm REGULAR cuff BP Jeffery Average: 168/77 Pulse: 58 LEFT arm REGULAR cuff 1. 168/82 Pulse: 53 2. 164/79 Pulse: 60 3. 170/71 Pulse: 54 4. 168/80 Pulse: 60 BP JEFFERY AVERAGE: 168/77 Pulse: 58 * Jose Arreola APRN.MENTAL HEALTH CASE MANAGER - 03/29/2024 11:06 AM EDT CC: Patient presents with: F/U 6 Month HPI Jess Jackson is a 83 year old female who presents today for routine follow up [place] [facility] [place] [facility] [place] [facility] [place] HTN and HLD: Ms. Jackson indicates that she is feeling well and denies any symptoms referable to elevated blood pressure. Specifically denies headache, chest pain, palpitations, dyspnea, and peripheral edema. Patient denies any side effects of her medication(s) and is compliant with their regimen. She does not check BP's generally. Jess denies regular aerobic exercise but tries to [...] sentinel node biopsy - Dr. Reynolds - [facility] PAST SURGICAL HISTORY OF Right 02/20/2013 Right TKA REVISE MEDIAN N/CARPAL TUNNEL SURG Right [facility] - 2019? ALLERGIES Lovenox [Enoxaparin Sodium], Oxycontin [...] tablet by mouth daily at bedtime. Insulin Cooter, Disposable, (BD ULTRA-FINE MARCELO PEN NEEDLE) 32 [...] PEN NEEDLE, DIABETIC 32 GAUGE X 5/32 4. Hypothyroidism, adult - ICD9: 244.9, ICD10: [...] symptoms occur. Patient agreeable to treatment plan. Jose Arreola APRN.CNP documented in this encounterAultman [facility]04-10-2024 History of Present illness Narrative* Yee [...] day. Yee Lema RN documented in this encounterAultman [facility]03-08-2024 History and physical note * Samuel Harman PA-C - 01/27/2024 1:40 PM EST HISTORY AND PHYSICAL EXAMINATION SERVICE DATE: 01/27/2024 SERVICE TIME: 2:10 PM PRIMARY CARE PHYSICIAN: Meena Guerra MD Assessment Patient has the following medical conditions which may affect deborah-operative course: Diabetic polyneuropathy associated with type 2 [...] large neck Non-male patient STOP-Bang Score: 3 [id number] Score: Age: >=75 Sex: female CHF history: No Hypertension history: Yes Stroke/TIA/thromboembolism history: No Vascular disease history: Yes Diabetes history: Yes [id number] Score: 6 ARISCAT Score: Age: >80 Preoperative [...] additional comments: *PACC/TCI - anesthesia choice. Beta Castillo Monitoring Plan Post Procedure Analgesic Plan Prepared for Surgery: optimally prepared for surgery. Per PACC guidelines no other testing is required CONSULTS: Planned Anesthetic: other anesthesia choice REASON FOR VISIT: Jess Jackson is a 83 year old female [...] history exists. CHIEF COMPLAINT: Pre-anesthesia optimization HPI: Jess Jackson is a 83 year old female presenting for pre-anesthesia consultation. Pt has history of left hand numbness and weakness that has progressively gotten worse. Tried wearing a splintat night to help. Had right wrist carpal tunnel done previously and recovered well. Above procedure recommended to manage symptoms. Procedure scheduled on 02/14/2024 at [facility]. REVIEW OF SYSTEMS: General: No weight loss, malaise or fevers. Neurological: No history of TIA's, stroke, MOGUL OPERATOR tumor, impaired sensorium, hemiplegia, paraplegia orquadraplegia. [...] > 1 time per night or hematuria. 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 FAMILY HISTORY Problem Relation Age of Onset [...] by mouth once daily. Taking Yes Insulin Cooter, Disposable, (BD ULTRA-FINE MARCELO PEN NEEDLE) 32 [...] or any previous visit (from the past 05993 hour(s)). The Following Tests/Procedures Have Been Initiated: Orders Placed This Encounter diosmin complex no.1 (VASCULERA) 630 mg tab Sig: Take 1 tablet by mouth once daily. Instructions Given to Patient: Instructions located in the after visit summary. Patient given verbal and written preop instructions and voices comprehension and compliance. SIGNATURE: Samuel Harman PA-C PATIENT NAME: Jess Jackson DATE: 01/27/2024 TIME: 11:15 AM PAGER/CONTACT #: documented in this encounterAultman [facility]rville [facility]03-08-2024 Instructions* Patient Instructions* Samuel Harman PA-C - 01/27/2024 1:30 PM EST PATIENT PREOPERATIVE INSTRUCTIONS Grady Wells MD, PhD has scheduled you for your procedure at this surgery center: [facility]: [phone] --[id number] [place] [address]. Please read below carefully for your personalized [...] Procedures: - YOU MUST HAVE A RESPONSIBLE MANIPULATOR OPERATOR TAKE YOU HOME. A KIER HAND OR CYTOPATHOLOGY TECHNOLOGIST CANNOT BE MADE A RESPONSIBLE MANIPULATOR OPERATOR. - We recommend that a responsible person stays with you overnight to take care of you. - You cannot stay in a hotel alone after outpatient surgery. You will not be permitted to have yoursurgery, if you do not have someone to take care of you. If you already have an Advance Directive, please fax a copy to [phone] or email to for it to be [...] day. Samuel Harman PA-C documented in this encounterAultman [facility]02-13-2024 Miscellaneous Notes* Telephone Encounter - Valerie [...] Thank you. Radha Serrato. documented in this encounterAultman Orrville Hospital01-17-2024 History of Present illness Narrative* Reba Hsu RT(R) - 12/07/2023 1:45 PM EST Radiology Service Progress Note PATIENT NAME: Jess Jackson DATE OF SERVICE: December 07, 2023 [...] 07, 2023 1:58 PM documented in this encounterAultman Orrville [facility]11-09-2023 History of Present illness Narrative* Jose Arreola APRN.MENTAL HEALTH CASE MANAGER - 09/29/2023 10:16 AM EST CC: Patient presents with: Recheck: 6 month HPI Jess Jackson is a 82 year old female [...] regimen. She does not check BP's generally. Jess does her own housework and stays active. [...] 2 tablets by mouth once daily. Insulin Cooter, Disposable, (BD ULTRA-FINE MARCELO PEN NEEDLE) 32 [...] symptoms occur. Patient agreeable to treatment plan. Jose Arreola APRN.CNP documented in this encounterAult[facility]10-23-[facility]23 Miscellaneous Notes* Telephone Encounter - Mckayla Card RN - 09/12/2023 10:49 AM EDT Pt states she has not received this yet from her mail in pharmacy. Sent short term supply to local pharmacy. Let Pt know to call mail in pharmacy to check on medication. Patient has been identified by name and date of : Yes, Provider Dr Guerra Date 09/12/23 Time [id number]. Patient phones for refill(s): Requested Prescriptions Pending [...] you. Mckayla Card RN. documented in this encounterAultman Orrville [facility]10-20-2023 Instructions* Patient Instructions* Kenisha Miranda - 09/09/2023 1:13 PM EDT Diabetes Foot [...] (or decreased sensation in your feet) a bookbinder chief should always cut your toenails. Be Careful [...] Go to your health care provider or bookbinder chief to treat these conditions. documented in this encounterAultman Orr[facility]10-20-2023 History of Present illness Narrative* Miranda Romano - 09/09/2023 1:12 PM EDT Last saw [...] is to RTC in 3-4 months. Miranda Romano DPM documented in this encounterAultman Orr[facility]10-16-2023 History of Present illness Narrative* Kelly Jeong, ANCIENT ART CURATOR-MENTAL HEALTH CASE MANAGER - 09/05/2023 2:30 PM EDT Jess Jackson is a 82 y.o. female who [...] is within normal limits and unremarkable. No deborah-oral furrowing. No facial telangiectasias. Her neck is [...] left/negative on right Hyperkeratosis/cutaneous fibrosis: Y BL xjrx-oqimajr-aska-right Excessive local fat deposition: N Left toes [...] BL Leg ulcerations: N BL Panniculitis/lipodermatosclerosis:Y BL crlw-pqshiat-ljmo-right. Tinea pedis: N Impression 1. Bilateral lower [...] dysfunction 7. 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 As noted above, she is unable to self apply tight gradient compression stockings [nor is anyone available to assist]. Suggested trying a zippered variety and increase to 20-30 mm Hg if tolerated. 3. Try to increase activity/ambulation in order to activate calf (and thigh) muscle pumps. 4. She will see Dr. Gordy Carlton [facility] who can perform a reflux mapping [...] or sooner if needed documented in [facility] encounterC[facility] History of Present illness Narrative* Silvia Munguia - 09/05/2023 11:00 AM EDT Patient offered a medical rotary adjuster for sensitive exam. Pt declined documented in this encounterOS[facility] History of Present illness Narrative* Miranda Romano - 04/19/2023 1:43 PM EDT Last saw [...] is to RTC in 3-4 months. Miranda Romano DPM * Natasha Gunter RN - 04/19/2023 [...] time. No other concerns. documented in this encounterAultman Orr[facility]05-30-2023 Instructions* Patient Instructions* Miranda Romano - 04/19/2023 1:43 PM EDT Diabetes Foot [...] (or decreased sensation in your feet) a bookbinder chief should always cut your toenails. Be Careful [...] Go to your health care provider or bookbinder chief to treat these conditions. documented in this encounterAultman Orr[facility]04-14-2023 Miscellaneous Notes* Telephone Encounter - Sean Pang Ma - 03/04/2023 4:22 PM EDT Mailed as requested. * Telephone Encounter - Tomeka Santiago RN - 03/03/2023 10:04 AM EDT Patient reports her handicap junito will in March. Asking if pcp would write a new one and mail to her via [employer]. Address verified. documented in this encounterAultman Orrville Hospital03-06-2023 History of Present illness Narrative* Aubrey Kelley DO - 01/24/2023 11:00 AM EST Jess Jackson is a 82 y.o. female who was seen in consultation at [facility] per your request on 01/24/2023 for evaluation [...] is within normal limits and unremarkable. No deborah-oral furrowing. No facial telangiectasias. Her neck is [...] left/negative on right Hyperkeratosis/cutaneous fibrosis: Y BL qvav-rqsxjzj-cvbp-right Excessive local fat deposition: N Left toes [...] BL Leg ulcerations: N BL Panniculitis/lipodermatosclerosis:Y BL klks-xoyyfna-psqs-right Tinea pedis: N IMPRESSION: 1. Bilateral lower [...] syndrome 8. 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 Gordy Carlton who can perform [...] EST Per Dr. Kelley's written order # [id number], Jess Jackson received 15 day samples of Vasculera 630mg tablets (1 boxes of 15 count each). Jess Jackson was instructed to take One (1) tablet dailyfor 15 days. Jess Jackson also received a copy of Dr. Kelley written order. Jess Jackson signed a copy of the written order to be scanned to the chart. Jess Jackson verbally acknowledges the instructions and denies any Questions. Lot #: [id number] Exp: 07/[address] [facility]03-06-2023 Instructions* Patient Instructions* Aubrey Kelley DO - 01/24/2023 11:00 AM EST 15-20 mmHg zippered compression stockings Please notify Dr Kelley in 2 weeks regarding response to trial of Vasculera. Any improvement in leg pain and/or swelling? Any improvement with Pramipexole? documented [facility] this [facility]01-13-2023 History of Present illness Narrative* Miranda [...] is to RTC in 3-4 months. Miranda Romano DPM * Dori Schmitz LPN - 12/03/2022 2:57 PM EST Patient presents with: Left Foot - Established Patient, Follow Up, Diabetic Foot Care Right Foot - Established Patient, Follow Up, Diabetic Foot Care Dori Schmitz LPN documented in this encounterAultman Orrville [facility]01-13-2023 Instructions* Patient Instructions* Miranda Romano - 12/03/2022 3:23 PM EST Diabetes Foot [...] (or decreased sensation in your feet) a bookbinder chief should always cut your toenails. Be Careful [...] Go to your health care provider or bookbinder chief to treat these conditions. documented in this encounterAultman [facility]01-10-2023 Miscellaneous Notes* Telephone Encounter - Laura Victoria LPN - 11/30/2022 3:16 PM EST Left a detailed message for pt with information listed below. Laura Victoria LPN * Telephone Encounter - Jose Arreola APRN.CNP - 11/29/2022 6:54 PM EST Fasting lab orders placed. Meds refilled. Please let patient know. Thank you Jose Arreola APRN.CNP * Telephone Encounter - Laura [...] you. Laura Victoria LPN documented in this encounterAultman [facility]01-06-2023 Miscellaneous Notes* Telephone Encounter - Emilie [...] planning on coming in. documented in this encounterAultman Orrville [facility]12-08-2022 History of Present illness Narrative* Meena Guerra MD - 10/28/2022 12:15 PM EST Reason for Visit Patient presents with: Recheck: 1 month elevated BP Jess Jackson is a 81 year old female [...] tablet amLODIPine (NORVASC) 2.5 mg tablet Insulin Cooter, Disposable, (BD ULTRA-FINE MARCELO PEN NEEDLE) 32 [...] BP <130/80 - ATENOLOL 25 MG TABLET Meena Guerra MD documented in this encounterAultman Orrville Hospital12-02-2022 Miscellaneous Notes* Telephone Encounter - Valerie [...] [facility] upcoming [facility] RX INSTRUCTIONS: Patient aware RX will be sent to pharmacy. No need to notify patient. Patient phones requesting refills as follows: Requested Prescriptions Pending Prescriptions Disp Refills simvastatin (ZOCOR) 20 mg tablet 90 tablet 3 Sig: Take 1 tablet by mouth daily at bedtime. Please review and advise. Rhoda Shearer documented in this encounterAultman Orrville Hospital11-11-2022 Miscellaneous Notes* Telephone Encounter - SALIMA Lopez - 10/01/2022 11:17 AM EST Spoke to pt. She stated that Dr. Guerra is receiving a message from another doctor regarding a procedure. She wishes to hold off on making appointment with Dr. Arias until everything gets reviewed. * Telephone Encounter - Meena Guerra MD - 09/30/2022 2:27 PM EST Please help schedule patient with Dr Arias vasculr as ordered Regards, Meena Guerra MD * Telephone Encounter - Meena Guerra MD - 09/29/2022 9:[address] Arias, I have this very pleasant patient who had lipodermatosclerosis for the past 30 years And she was advised at a centre in [place] about venous ablation and we were wondering what your thoughts would be on that and if that is something that is being done nowadays Would you like see her for consult. Regards, Meena Guerra MD documented in this encounterAultman Orrville Hospital10-10-2022 History of Present illness Narrative* Julianna Blake - 08/30/2022 12:40 PM EDT Patient offered a medical rotary adjuster for sensitive exam. Pt declined documented in this encounterC[facility]08-09-2022 Miscellaneous Notes* Telephone Encounter - Michelle Medeiros LPN - 06/29/2022 3:10 PM EDT Last seen pcp 03/22/22. Next appt with pcp * Telephone Encounter - Stacey Ramos - 06/29/2022 12:48 PM EDT Please contact patient when this has been sent to pharmacy. Contact [phone] Stacey Ramos documented in this encounterAultman Orrville Hospital05-18-2022 Miscellaneous Notes* Telephone Encounter - Praveena Reyes Ma - 04/07/2022 12:54 PM EDT Patient notified. * Telephone Encounter - Jose Arreola APRN.CNP - 04/07/2022 12:29 PM EDT Please let patient know that I have sent in the prescription as requested to [facility] in [place]. Thank you Jose Arreola APRN.CNP * Telephone Encounter - Mckayla Card RN - 04/07/2022 12:13 PM EDT Pt called and is notified of providersmessage. Pt reports the antibiotic is Cipro. She states she and her go up to their house in the [facility] for the summer and it is in [...] 04/07/2022 12:01 PM * Telephone Encounter - Jose Arreola APRN.CNP - 04/07/2022 7:51 AM EDT BP is at goal. Please clarify what antibiotic she is referring to and what is the need for this antibiotic. Thank you Jose Arreola APRN.CNP * Telephone Encounter - Freida [...] takes with her when traveling to the [facility]. Please send to mail order pharmacy. Freida Healy LPN documented in this encounterAultman [facility]05-17-2022 History of Present illness Narrative* Freida [...] PCP. Freida Healy LPN documented in this encounterAultman Orrville Hospital05-10-2022 History of Present illness Narrative* Miranda Romano - 03/30/2022 10:40 AM EDT Last saw [...] is to RTC in 3-4 months. Miranda Romano DPM * Emilie Hunt RN - 03/30/2022 10:32 AM EDT Patient presents with: Left Foot - Established Patient, Diabetic Foot Care Right Foot - Established Patient, Diabetic Foot Care documented in this encounterAultman [facility]05-02-2022 History of Present illness Narrative* Meena Guerra MD - 03/22/2022 10:17 AM EDT Reason for Visit Patient presents with: Established Patient: 6 month follow up- med refills Jess Jackson is a 81 year old female who presents here today for Above Complaints.. Health Maintenance SHINGRIX VACCINE(2 of 3) ADVANCE DIRECTIVE DISCUSSION DIABETIC FOOT EXAM LDL CHOLESTEROL DILATED RETINAL EXAM HPI Kaitlin is a very very pleasant 80-year-old with [...] tablet amLODIPine (NORVASC) 2.5 mg tablet Insulin Cooter, Disposable, (BD ULTRA-FINE MARCELO PEN NEEDLE) 32 [...] PEN NEEDLE, DIABETIC 32 GAUGE X /32 - CONSULT TO PODIATRY 3. Acquired hypothyroidism [...] Onychomycosis - ICD9: 110.1, ICD10: B35.1 Stable Meena Guerra MD documented in this encounterAultman Orrville Hospital11-09-2021 History of Past illness Narrative* Problem Noted Date Resolved Date Right wrist pain 09/29/2021 03/18/2022 Carpal tunnel syndrome on right 04/13/2018 05/28/2020 Overview: Added automatically from request for surgery [id number] Morbid obesity with BMI of 40.0-44.9, adult [...] of this encounter (statuses as of 03/22/2022) [facility] of Past illness Narrative* Problem Noted Date Resolved Date Right wrist pain 09/29/2021 03/18/2022 Carpal tunnel syndrome on right 04/13/2018 05/28/2020 Overview: Added automatically from request for surgery [id number] Morbid obesity with BMI of 40.0-44.9, adult [...] of this encounter (statuses as of 03/30/2022) [facility] of Past illness Narrative* Problem Noted Date Resolved Date Right wrist pain 09/29/2021 03/18/2022 Carpal tunnel syndrome on right 04/13/2018 05/28/2020 Overview: Added automatically from request for surgery [id number] Morbid obesity with BMI of 40.0-44.9, adult [...] of this encounter (statuses as of 04/06/2022) [facility] of Past illness Narrative* Problem Noted Date Resolved Date Right wrist pain 09/29/2021 03/18/2022 Carpal tunnel syndrome on right 04/13/2018 05/28/2020 Overview: Added automatically from request for surgery [id number] Morbid obesity with BMI of 40.0-44.9, adult [...] of this encounter (statuses as of 04/07/2022) [facility] of Past illness Narrative* Problem Noted Date Resolved Date Right wrist pain 09/29/2021 03/18/2022 Carpal tunnel syndrome on right 04/13/2018 05/28/2020 Overview: Added automatically from request for surgery [id number] Morbid obesity with BMI of 40.0-44.9, adult [...] of this encounter (statuses as of 06/30/2022) [facility] of Past illness Narrative* Problem Noted Date Resolved Date Right wrist pain 09/29/2021 03/18/2022 Carpal tunnel syndrome on right 04/13/2018 05/28/2020 Overview: Added automatically from request for surgery [id number] Morbid obesity with BMI of 40.0-44.9, adult [...] of this encounter (statuses as of 08/06/2022) [facility] of Past illness Narrative* Problem Noted Date Resolved Date Right wrist pain 09/29/2021 03/18/2022 Carpal tunnel syndrome on right 04/13/2018 05/28/2020 Overview: Added automatically from request for surgery [id number] Morbid obesity with BMI of 40.0-44.9, adult [...] of this encounter (statuses as of 10/04/2022) [facility] of Past illness Narrative* Problem Noted Date Resolved Date Right wrist pain 09/29/2021 03/18/2022 Carpal tunnel syndrome on right 04/13/2018 05/28/2020 Overview: Added automatically from request for surgery [id number] Morbid obesity with BMI of 40.0-44.9, adult [...] of this encounter (statuses as of 10/22/2022) [facility] of Past illness Narrative* Problem Noted Date Resolved Date Right wrist pain 09/29/2021 03/18/2022 Carpal tunnel syndrome on right 04/13/2018 05/28/2020 Overview: Added automatically from request for surgery [id number] Morbid obesity with BMI of 40.0-44.9, adult [...] of this encounter (statuses as of 10/28/2022) [facility] of Past illness Narrative* Problem Noted Date Resolved Date Right wrist pain 09/29/2021 03/18/2022 Carpal tunnel syndrome on right 04/13/2018 05/28/2020 Overview: Added automatically from request for surgery [id number] Morbid obesity with BMI of 40.0-44.9, adult [...] of this encounter (statuses as of 11/27/2022) [facility] illness Narrative* Problem Noted Date Resolved Date Right wrist pain 09/29/2021 03/18/2022 Carpal tunnel syndrome on right 04/13/2018 05/28/2020 Overview: Added automatically from request for surgery [id number] Morbid obesity with BMI of 40.0-44.9, adult [...] of this encounter (statuses as of 11/30/2022) [facility] of Past illness Narrative* Problem Noted Date Resolved Date Right wrist pain 09/29/2021 03/18/2022 Carpal tunnel syndrome on right 04/13/2018 05/28/2020 Overview: Added automatically from request for surgery [id number] Morbid obesity with BMI of 40.0-44.9, adult [...] of this encounter (statuses as of 12/03/2022) [facility] illness Narrative* Problem Noted Date Resolved Date Right wrist pain 09/29/2021 03/18/2022 Carpal tunnel syndrome on right 04/13/2018 05/28/2020 Overview: Added automatically from request for surgery [id number] Morbid obesity with BMI of 40.0-44.9, adult [...] of this encounter (statuses as of 03/05/2023) [facility] illness Narrative* Problem Noted Date Resolved Date Right wrist pain 09/29/2021 03/18/2022 Carpal tunnel syndrome on right 04/13/2018 05/28/2020 Overview: Added automatically from request for surgery [id number] Morbid obesity with BMI of 40.0-44.9, adult [...] of this encounter (statuses as of 04/01/2023) [facility] illness Narrative* Problem Noted Date Resolved Date Right wrist pain 09/29/2021 03/18/2022 Carpal tunnel syndrome on right 04/13/2018 05/28/2020 Overview: Added automatically from request for surgery [id number] Morbid obesity with BMI of 40.0-44.9, adult [...] of this encounter (statuses as of 04/20/2023) [facility] illness Narrative* Problem Noted Date Diagnosed Date Resolved Date Right wrist pain 09/29/2021 03/18/2022 Carpal tunnel syndrome on right 04/13/2018 05/28/2020 Overview: Added automatically from request for surgery [id number] Morbid obesity with BMI of 40.0-44.9, adult [...] of this encounter (statuses as of 09/09/2023) [facility] illness Narrative* Problem Noted Date Diagnosed Date Resolved Date Right wrist pain 09/29/2021 03/18/2022 Carpal tunnel syndrome on right 04/13/2018 05/28/2020 Overview: Added automatically from request for surgery [id number] Morbid obesity with BMI of 40.0-44.9, adult [...] of this encounter (statuses as of 09/12/2023) [facility] Narrative* Problem Noted Date Diagnosed Date Resolved Date Right wrist pain 09/29/2021 03/18/2022 Carpal tunnel syndrome on right 04/13/2018 05/28/2020 Overview: Added automatically from request for surgery [id number] Morbid obesity with BMI of 40.0-44.9, adult [...] of this encounter (statuses as of 09/16/2023) [facility] Narrative* Problem Noted Date Diagnosed Date Resolved Date Right wrist pain 09/29/2021 03/18/2022 Carpal tunnel syndrome on right 04/13/2018 05/28/2020 Overview: Added automatically from request for surgery [id number] Morbid obesity with BMI of 40.0-44.9, adult [...] of this encounter (statuses as of 09/30/2023) [facility] Narrative* Problem Noted Date Diagnosed Date Resolved Date Right wrist pain 09/29/2021 03/18/2022 Carpal tunnel syndrome on right 04/13/2018 05/28/2020 Overview: Added automatically from request for surgery [id number] Morbid obesity with BMI of 40.0-44.9, adult [...] of this encounter (statuses as of 12/28/2023) [facility] Narrative* Problem Noted Date Diagnosed Date Resolved Date Right wrist pain 09/29/2021 03/18/2022 Carpal tunnel syndrome on right 04/13/2018 05/28/2020 Overview: Added automatically from request for surgery [id number] Morbid obesity with BMI of 40.0-44.9, adult [...] of this encounter (statuses as of 01/03/2024) [facility] Narrative* Problem Noted Date Diagnosed Date Resolved Date Right wrist pain 09/29/2021 03/18/2022 Carpal tunnel syndrome on right 04/13/2018 05/28/2020 Overview: Added automatically from request for surgery [id number] Morbid obesity with BMI of 40.0-44.9, adult [...] of this encounter (statuses as of 01/27/2024) [facility] Narrative* Problem Noted Date Diagnosed Date Resolved Date Right wrist pain 09/29/2021 03/18/2022 Carpal tunnel syndrome on right 04/13/2018 05/28/2020 Overview: Added automatically from request for surgery [id number] Morbid obesity with BMI of 40.0-44.9, adult [...] of this encounter (statuses as of 03/01/2024) [facility] of [facility] illness Narrative* Problem Noted Date Resolved Date Carpal tunnel syndrome on right 04/13/2018 05/28/2020 Overview: Added automatically from request for surgery [id number] BMI 40.0-44.9, adult 02/21/2014 02/14/2015 Leg edema [...] of this encounter (statuses as of 03/12/2022) [facility] [place] [facility]* Diagnosis Diabetic polyneuropathy associated with type 2 diabetes mellitus (HCC) Hypothyroidism Unspecified hypothyroidism documented in this encounter [facility]* Diagnosis Hypothyroidism, unspecified type- Primary Type [...] Dermatophytosis of nail documented in this encounter [facility] [place] [facility]* Diagnosis Onychomycosis- Primary Dermatophytosis of nail Type 2 diabetes mellitus with peripheral neuropathy (HCC) Pain in toe of right foot Pain in limb Pain in toe of left foot Pain in limb [facility] Essential hypertension- Primary Unspecified essential hypertension documented [facility] this encounter [facility]* Diagnosis Urinary tract infection without hematuria, site unspecified documented in this encounter [facility]* Diagnosis Type 2 diabetes mellitus with peripheral neuropathy (HCC) documented in this encounter [facility]* Diagnosis Diabetic polyneuropathy associated with type 2 diabetes mellitus (HCC) documented in this encounter [facility]* Diagnosis Ductal carcinoma in situ (DCIS) of right breast Encounter for screening mammogram for malignant neoplasm of breast Other screening mammogram [facility] Diagnosis Onset Date Resolution Status Cardiomegaly acute Generalized osteoarthrosis a cute History of lumbar laminectomy acute History of lumpectomy of right breast acute History of right breast cancer acute History of total bilateral knee replacement (TKR) acute History of total replacement of both hip joints acute Hyperpigmentation of skin ac [place] Left leg swelling acute Lipodermatosclerosis of both lower extremities acute Right leg swelling acute [id number] acute Venous stasis ulcer acute Chronic venous insufficiency chronic Dyslipidemia chronic Hypertension chronic Hypothyroidism chronic Type 2 diabetes mellitus chr onic 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 [facility] Work Phone: Evaluation note* Diagnosis Lipodermatosclerosis of both lower extremities- Primary documented [facility] this encounter [facility]* Diagnosis Hyperlipidemia, unspecified hyperlipidemia type documented in this encounter [facility] [place] [facility]* Diagnosis Hyperlipidemia, unspecified hyperlipidemia type Essential hypertension Unspecified essential hypertension [facility] [place] [facility]* Diagnosis Hyperlipidemia, unspecified hyperlipidemia type- Primary Hypertension goal BP (blood pressure) < 150/90 Unspecified essential hypertension Hypothyroidism, adult Other specified acquired hypothyroidism Essential hypertension Unspecified essential hypertension 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lbuminuria, without long-term current use of insulin (HCC) documented in this encounter [facility]* Diagnosis Type 2 diabetes mellitus with peripheral neuropathy (HCC)- Primary Onychomycosis Dermatophytosis of nail Pain in toe of right foot Pain in limb Pain in toe of left foot Pain in limb documented [facility] this encounter [facility]* Diagnosis Leg swelling- Primary Swelling of limb Lipodermatosclerosis of both lower extremities Chronic venous insufficiency Unspecified venous (peripheral) insufficiency Lymphedema Other lymphedema Abdominal pannus Localized adiposity Leg cramps Cramp of limb Pain in both lower extremities Bruit of left carotid artery Other symptoms involving cardiovascular system [facility] [facility] Diagnosis Diabetic polyneuropathy associated with type 2 diabetes mellitus (HCC) Hypothyroidism Unspecified hypothyroidism [facility] Diagnosis Type 2 diabetes mellitus with peripheral neuropathy (HCC)- Primary Onychomycosis Dermatophytosis of nail Pain in toe of right foot Pain in limb Pain in toe of left foot Pain in limb Callus of foot Corns and callosities Hammer toe of right foot Peripheral arterial disease (HCC) Peripheral vascular disease, unspecified [facility] Diagnosis Leg swelling- Primary Swelling of limb Lipodermatosclerosis of both lower extremities Lymphedema Other lymphedema Chronic venous insufficiency Unspecified venous (peripheral) insufficiency Leg cramps Cramp of limb Bruit of left carotid artery Other symptoms involving cardiovascular system [facility] Diagnosis Ductal carcinoma in situ (DCIS) of right breast Encounter for screening mammogram for malignant neoplasm of breast Other screening mammogram [facility] Diagnosis Type 2 diabetes mellitus with peripheral neuropathy (HCC)- Primary Onychomycosis Dermatophytosis of nail Pain in toe of right foot Pain in limb Pain in toe of left foot Pain in limb Peripheral arterial disease (HCC) Peripheral vascular disease, unspecified [facility] Diagnosis Essential hypertension Unspecified essential hypertension [facility] Diagnosis Diabetic polyneuropathy associated with type 2 diabetes mellitus (HCC) Hyperlipidemia Other and unspecified hyperlipidemia [facility] Diagnosis Essential hypertension- Primary Unspecified essential hypertension Type 2 diabetes mellitus with peripheral neuropathy (HCC) Hypothyroidism, adult Other specified acquired hypothyroidism Hyperlipidemia, unspecified hyperlipidemia type Carpal tunnel syndrome of left wrist Carpal tunnel syndrome [facility] Diagnosis Carpal tunnel syndrome on left- Primary Carpal tunnel syndrome Carpal tunnel syndrome on left Carpal tunnel syndrome [facility] Diagnosis Hyperlipidemia, unspecified hyperlipidemia type Carpal tunnel syndrome on left Carpal tunnel syndrome [facility] Diagnosis Preoperative examination- Primary Preoperative [...] tunnel syndrome [facility]* Diagnosis Post-operative state- Primary Other postprocedural status [facility] Diagnosis Diabetic polyneuropathy associated with type 2 diabetes mellitus (HCC) Hypothyroidism Unspecified hypothyroidism [facility] Diagnosis Essential hypertension- Primary Unspecified essential hypertension Hyperlipidemia, unspecified hyperlipidemia type Type 2 diabetes mellitus with peripheral neuropathy (HCC) Hypothyroidism, adult Other specified acquired hypothyroidism Function kidney decreased Unspecified disorder of kidney and ureter [facility] Diagnosis Onychomycosis- Primary Dermatophytosis of nail Pain in toe of right foot Pain in limb Pain in toe of left foot Pain in limb Type 2 diabetes mellitus with peripheral neuropathy (HCC) [facility] Diagnosis Carpal tunnel syndrome on left- Primary Carpal tunnel syndrome [facility] Diagnosis Essential hypertension- Primary Unspecified essential hypertension [facility]* Diagnosis Controlled type 2 diabetes [...] Carpal tunnel syndrome [facility] [place] Diagnosis Controlled type 2 diabetes mellitus [...] hypothyroidism Unspecified hypothyroidism [facility] [place] [facility]* Diagnosis Ductal carcinoma in situ (DCIS) of right breast Encounter for screening mammogram for malignant neoplasm of breast Other screening mammogram [facility] Diagnosis Ductal carcinoma in situ (DCIS) of right breast- Primary Encounter for screening mammogram for malignant neoplasm of breast Other screening mammogram [facility] Diagnosis Leg swelling- Primary Swelling of limb Lipodermatosclerosis of both lower extremities Lymphedema Other lymphedema Chronic venous insufficiency Unspecified venous (peripheral) insufficiency [facility] Diagnosis Controlled type 2 diabetes [...] Corns and callosities [facility] [place] [facility]* Diagnosis Controlled type 2 diabetes mellitus [...] type (HCC) documented in this encounter [facility] note* Diagnosis Controlled type 2 diabetes mellitus [...] location- Primary documented in this encounter [facility] note* Diagnosis Controlled type 2 diabetes mellitus [...] Dyspnea, unspecified type [facility] [place] [facility]* Diagnosis Controlled type 2 diabetes mellitus [...] pruritic disorder documented in this encounter [facility] note* Diagnosis Controlled type 2 diabetes mellitus [...] obesity type (HCC) [facility] [place]* Diagnosis Controlled type 2 diabetes mellitus [...] neuropathy (HCC) documented in this encounter [facility] note* Diagnosis Controlled type 2 diabetes mellitus [...] Atrial fibrillation documented in this encounter [facility] note* Diagnosis Controlled type 2 diabetes mellitus [...] unspecified hyperlipidemia type documented in this encounter [facility] note* Diagnosis Controlled type 2 diabetes mellitus [...] tunnel syndrome on left Carpal tunnel syndrome Recurrent pleural effusion- Primary Persistent atrial fibrillation (HCC) Atrial fibrillation Atrial fibrillation with RVR (HCC) Atrial fibrillation Acute diastolic congestive heart failure (HCC) Acute diastolic heart failure 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 Anemia, unspecified type Stage 3a chronic kidney disease ([facility]) Mitral valve annular calcification Mitral valve disorders Biatrial enlargement Cardiomegaly Vitamin B12 deficiency Other B-complex deficiencies Acute diastolic CHF (congestive heart failure) (HCC) Acute diastolic heart failure [facility] Diagnosis Controlled type 2 diabetes mellitus without complication, without long-term current use of insulin ([facility])- Primary Eustachian tube dysfunction, bilateral Need for [...] syndrome on left Carpal tunnel syndrome Acute diastolic heart failure (HCC)- Primary Acute diastolic heart failure Atrial fibrillation, unspecified type (HCC) Type 2 diabetes mellitus without complication, without long-term current use of insulin (HCC) Essential (primary) hypertension Unspecified essential hypertension Mitral valve annular calcification Mitral valve disorders Stage 3b chronic kidney disease (HCC) Iron deficiency anemia, unspecified iron deficiency anemia type [facility] [place] [facility]* Diagnosis Controlled type 2 diabetes mellitus [...] Carpal tunnel syndrome Type 2 diabetes mellitus without complication, without long-term current use of insulin (HCC)- Primary Lipodermatosclerosis Panniculitis of other sites Multiple open wounds of right lower extremity, sequela [facility] [place] [facility]* Diagnosis Controlled type 2 diabetes mellitus [...] Carpal tunnel syndrome Type 2 diabetes mellitus without complication, without long-term current use of insulin (HCC)- Primary Acute diastolic heart failure (HCC) Acute diastolic heart failure Stage 3b chronic kidney disease (HCC) On home oxygen therapy Dependence on supplemental oxygen Morbid (severe) obesity due to excess calories (HCC) Essential hypertension Unspecified essential hypertension Lipodermatosclerosis Panniculitis of other sites [facility]* Diagnosis Controlled type 2 diabetes mellitus [...] Carpal tunnel syndrome Type 2 diabetes mellitus without complication, without long-term current use of insulin (HCC)- Primary [facility] [place] [facility]* Diagnosis Controlled type 2 diabetes mellitus [...] syndrome on left Carpal tunnel syndrome Acute decompensated heart failure (HCC) Congestive heart failure, unspecified [facility] [place] [facility]* Diagnosis Controlled type 2 diabetes mellitus [...] syndrome on left Carpal tunnel syndrome Acute diastolic congestive heart failure (HCC)- Primary Acute diastolic heart failure Recurrent pleural effusion Persistent atrial fibrillation (HCC) Atrial fibrillation 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 Stage 3a chronic kidney disease (HCC) Mitral valve annular calcification Mitral valve disorders Biatrial enlargement Cardiomegaly Essential hypertension Unspecified essential hypertension Diabetic polyneuropathy associated with type 2 diabetes mellitus (HCC) BMI 35.0-35.9,adult Body Mass Index 35.0-35.9, adult documented in this encounter [facility] note* Diagnosis Controlled type 2 diabetes mellitus [...] tunnel syndrome on left Carpal tunnel syndrome 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lbuminuria, without long-term current use of insulin (HCC)- Primary documented in this encounter [facility] note* Diagnosis Controlled type 2 diabetes mellitus [...] Hospital discharge follow-up- Primary Other follow-up examination Chronic heart failure with preserved ejection fraction (HCC) Nonrheumatic mitral valve regurgitation Nonrheumatic tricuspid valve regurgitation Tricuspid valve disorders, specified as nonrheumatic Persistent atrial fibrillation (HCC) Atrial fibrillation Type 2 diabetes mellitus without complication, without long-term current use of insulin (HCC) Essential hypertension Unspecified essential hypertension Hyperlipidemia, unspecified hyperlipidemia type Diabetic polyneuropathy associated with type 2 diabetes mellitus (HCC) 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lbuminuria, without long-term current use of insulin (HCC) Lipodermatosclerosis Panniculitis of other sites Stage 3a chronic kidney disease (HCC) Acquired hypothyroidism Unspecified hypothyroidism Hx of TB skin testing Other specified personal history presenting hazards to health [facility] Diagnosis Controlled type 2 diabetes [...] tunnel syndrome on left Carpal tunnel syndrome Pleural effusion- Primary Unspecified pleural effusion Chronic diastolic CHF (congestive heart failure) (HCC) Chronic diastolic heart failure Chronic atrial fibrillation (HCC) Atrial fibrillation Stage 4 chronic kidney disease (HCC) documented in this encounter [facility] note* Diagnosis Controlled type 2 diabetes mellitus [...] tunnel syndrome on left Carpal tunnel syndrome Pleural effusion Unspecified pleural effusion documented in this encounter [facility] note* Diagnosis Controlled type 2 diabetes mellitus [...] tunnel syndrome on left Carpal tunnel syndrome Pleural effusion- Primary Unspecified pleural effusion documented in this encounter [facility] note* Diagnosis Controlled type 2 diabetes mellitus [...] tunnel syndrome on left Carpal tunnel syndrome Encounter for medical assessment- Primary documented in this encounter [facility] note* Diagnosis Controlled type 2 diabetes mellitus [...] tunnel syndrome on left Carpal tunnel syndrome Bradycardia- Primary Other specified cardiac dysrhythmias Persistent atrial fibrillation (HCC) Atrial fibrillation Essential hypertension Unspecified essential hypertension [facility] Additional Instructions Hold your metolazone, lisinopril, metoprolol, and diltiazem. Cardiology office is also recommended holding your Eliquis.[facility] Work Phone: Progress note Author Jayden Friend [facility] Note Date/Time May 03, 2025 5:[address] [facility] Medical Records Department [address] [place] [address] Progress Note 05/03/25 1756 MR#: [id number] Acct: [id number] Name: JESS JACKSON Rep #:[id number] : 1940 84 From: Jayden Still DO PCP: Meena Guerra MD Status:ADM IN Location: [place] [address] Progress Note Patient is already had any more signs or symptoms of GI bleeding. She is tolerating a regular diet. Her repeat hemoglobin came back at 7.5 this seems nba stable Physical Exam Const alert and no apparent distress HEENT head/scalp atraumatic and moist oral mucous membranes Resp normal respiratory effort, no retractions, no use of accessory muscles and clearto auscultation bilaterally Cardio regular rate, regular rhythm and S1 normal heart sound GI normal to inspection, nondistended, normoactive bowel sounds, soft to palpation and non-tender Extremity normal to inspection and full ROM Assessment & Plan Assessment/Plan (1) ABLA (acute blood loss anemia): PLAN: This is secondary to GI bleed from anticoagulation. Status post transfused 3 units PRBCs. (2) GI (gastrointestinal bleed): PLAN: We took a relook at her upper GI tract and possibly place a stent because she was having some signs of gastric outlet obstruction along with GI bleeding in the duodenal bulb transitioning to the first portion of the duodenum. She was explained alternatives, risk and benefits include not withstanding bleeding,pressure, subs, perforation, need for surgery . She have an ASA of 3. 05/02/2025-she is status post repeat upper endoscopy with control of bleed. She had duodenal ulcers retreated with epinephrine, hemostasis. Cautery and Hemospray. Her hemoglobin was 7.7 yesterday. It is 7.6 today. Her BUN/creatinine ratio is improving. I do not see any signs of bleeding at this time. She is okay to advance her diet. 05/03/2025-I will give her transfusion of IV iron. She will need to be on iron at home and we will repeat upper endoscopy in approximately 3 months after she is on maximal PPI therapy and antisecretory therapy. (3) Atrial fibrillation with RVR: (4) Transient hypotension: (5) (HFpEF) heart failure with preserved ejection fraction: QUALIFIERS: Heart failure chronicity: acute on chronic Qualified Code(s): I50.33 - Acute on chronic diastolic (congestive) heart failure PLAN: Plan chronic conditions: * DM2: metformin held. SSI. * hypothyroidism: levothyroxine VTE prophylaxis: SCDs. Visit Charges Inpatient E&M: 62435 Subs Hosp L3 05/03/25 8453 <Electronically signed by Jayden Still DO> Jayden Still DO Cosign Signature (if applicable): CC: ~ Signed [facility] Work Phone: Reason for referral (narrative)* Diagnostic Procedure Only (Routine) - Closed Specialty Diagnoses / Procedures Referred By Page campos Referred To Contact XR IMAGING Diagnoses Pain Procedures XR HAND GENERAL 3V PA/LAT/OBL LEFT RADEX HAND MINIMUM 3 [place] [address] Referral ID Status Reason Start Date Expiration Date V isits Requested Visits Authorized [id number] Closed Auto-Generate d Referral 12/06/2023 11/20/2024 1 1 [facility]ative[facility]No reason for referral information availableWTriHealth [facility] Work Phone: Reason for referral (narrative)* Transition of Care (Routine) - Authorized Specialty Diagnoses / Procedures Referred By Contac t Referred To Contact [facility] Procedures CARDIOVASCULAR MEDICINE OP FOLLOW UP APPT ORDER Jessica Alejo MD [address] [place] [address] Phone: tel: fax: [facility] [address] [place], [place] [id number] Referral ID Status Reason Start Date Expiration Date Visits Requested Visits Authorized [id number] Authorized PCP Requested Referral 05/21/2025 05/21/2026 1 1 [facility] Summary Purpose Family History Relationship Condition Age at Onset Recorded Date/T korina Unknown Family History?Cancer Unknown Novemb er 2016 8:56pm Family History?Cancer Unknown Novemb er 2016 8:56pm Family History?Cance r, Diabetes, Heart Disease, Hypertension Unknown September 30, 2017 8:56pm Family History?Diabe abimael, Heart Disease Unknown September 30, 2017 8:56pm Relationship Condition Age at Onset Recorded Date/T korina Not Specified Cardiac disease Unknown Relationship Condition Age at Onset Recorded Date/T korina father Cardiac disease Unknown Hypertension Unknown Heart failure Unknown mother Kidney disorder Unknown Cardiac disease Unknown Malignant neoplasm Unknown Advance Directives Documents on File Type Date Recorded Patient Black Top Roller Expl anation Advance Directive(s) 01/03/2020 6:49 AM Advance Directive(s) 04/18/2018 6:26 AM Documents on File Type Date Recorded Patient Black Top Roller Expl anation Advance Directive(s) 01/03/2020 6:49 AM Advance Directive(s) 04/18/2018 6:26 AM Advance Directive Response Recorded Date/ Time Living Will No January 08 4:29pm Power of Tool Liaison No January 08, 2025 4:29pm Advance Directive Response Recorded Date/ Time Living Will No January 08 4:29pm Do you have a Healthcare Power of Tool Liaison? No January 08, 2025 4:29pm Advance Directive Response Recorded Date/ Time Living Will No January 08 4:29pm Do you have a Healthcare Power of Tool Liaison? No January 08, 2025 4:29pm Do you have a Healthcare Power of Tool Liaison? No April 16, 2025 11:25am Advance Directive Response Recorded Date/ Time Living Will No January 08, 2 025 4:29pm Do you have a Healthcare Power of Tool Liaison? No January 08, 2025 4:29pm Do you have a Healthcare Power of Tool Liaison? No April 16, 2025 2:42pm Advance Directive Response Recorded Date/ Time Living Will No January 08, 2 025 4:29pm Do you have a Healthcare Power of Tool Liaison? No January 08, 2025 4:29pm Do you have a Healthcare Power of Tool Liaison? No April 16, 2025 2:42pm Do you have a Healthcare Power of Tool Liaison? No April 26, 2025 9:30pm Advance Directive Response Recorded Date/ Time Living Will No January 08, 2 025 4:29pm Do you have a Healthcare Power of Tool Liaison? No January 08, 2025 4:29pm Do you have a Healthcare Power of Tool Liaison? No April 16, 2025 2:42pm Do you have a Healthcare Power of Tool Liaison? No April 27, 2025 6:12am Advance Directive Response Recorded Date/ Time Living Will No January 08, 025 4:29pm Do you have a Healthcare Power of Tool Liaison? No January 08, 2025 4:29pm Do you have a Healthcare Power of Tool Liaison? No April 16, 2025 2:42pm Do you have a Healthcare Power of Tool Liaison? No April 27, 2025 6:12am Do you have a Healthcare Power of Tool Liaison? Yes May 08, 2025 1:01pm Advance Directive Response Recorded Date/ Time Do you have a Healthcare Power of Tool Liaison? No April 16, 2025 2:42pm Do you have a Healthcare Power of Tool Liaison? No April 27, 2025 6:12am Do you have a Healthcare Power of Tool Liaison? Yes May 08, 2025 1:01pm Documents on File Type Date Recorded Patient Black Top Roller Expl anation Advance Directive(s) 05/30/2025 7:59 AM Documents on File Type Date Recorded Patient Black Top Roller Expl anation Advance Directive(s) 05/30/2025 7:59 AM Reason for Referral Specialty Diagnoses / Procedures Referred By Contac t Referred To Contact Podiatry Diagnoses Type 2 diabetes mellitus with peripheral neuropathy (HCC) Procedures CONSULT TO PODIATRY OFFICE/OUTPATIENT [facility] 60-74 MINUTES Meena Guerra MD [address] [place] [address] Referral ID Status Reason Start Date Expiration Date Visits Requested Visits Authorized [id number] Authorized PCP Requested Referral 03/22/2022 03/22/2023 1 1 Specialty Diagnoses / Procedures Referred By Contac t Referred To Contact Diagnoses Ductal carcinoma in situ (DCIS) of right breast Encounter for screening mammogram for malignant neoplasm of breast Procedures MAMMO SCREENING WITH DAVION Amy Dorantes, EPI-MENTAL HEALTH CASE MANAGER [address] [facility] [address], [address] [place] [address] Referral ID Status Reason Start Date Expiration Date V isits Requested Visits Authorized [id number] New Request 08/13/2021 09/07/2022 1 1 Specialty Diagnoses / Procedures Referred By Contac t Referred To Contact Vascular Surgery Diagnoses Lipodermatosclerosis of both lower extremities Procedures CONSULT TO VASCULAR SURGERY OFFICE/OUTPATIENT [facility] 60-74 MINUTES Meena Guerra MD [address] [place] [address] Referral ID Status Reason Start Date Expiration Date Visits Requested Visits Authorized [id number] Authorized PCP Requested Referral 09/30/2023 1 1 Specialty Diagnoses / Procedures Referred By Contac t Referred To Contact Diagnoses Leg swelling Lipodermatosclerosis of both lower extremities Chronic venous insufficiency Lymphedema Abdominal pannus Leg cramps Pain in both lower extremities Bruit of left carotid artery Procedures VASC DUPLEX CAROTID BILATERAL Aubrey Kelley DO [address] [place] [address] Referral ID Status Reason Start Date Expiration Date V isits Requested Visits Authorized [id number] New Request 01/24/2023 02/18/2024 1 1 Specialty Diagnoses / Procedures Referred By Contac t Referred To Contact Diagnoses Leg swelling Lipodermatosclerosis of both lower extremities Chronic venous insufficiency Lymphedema Abdominal pannus Leg cramps Procedures VASC DUPLEX VENOUS WITH REFLUX BILATERAL LOWER Aubrey Kelley, DO [address] [place] [address] Referral ID Status Reason Start Date Expiration Date V isits Requested Visits Authorized [id number] New Request 01/24/2023 02/18/2024 1 1 Specialty Diagnoses / Procedures Referred By Contac t Referred To Contact Diagnoses Leg swelling Lipodermatosclerosis of both lower extremities Chronic venous insufficiency Lymphedema Abdominal pannus Leg cramps Aubrey Kelley, DO [address] [place] [address] Gordy Carlton MD [address] [place] [address] Referral ID Status Reason Start Date Expiration Date V isits Requested Visits Authorized [id number] New Request 01/24/2023 02/18/2024 1 1 Referral ID Status Reason Start Date Expiration Date V isits Requested Visits Authorized [id number] New Request 08/30/2022 09/24/2023 1 1 Specialty Diagnoses / Procedures Referred By Contac t Referred To Contact Orthopedics Diagnoses Carpal tunnel syndrome of left wrist Procedures CONSULT TO ORTHOPAEDICS OFFICE/OUTPATIENT [facility] MDM 60-74 MINUTES Jose Arreola APRN.MENTAL HEALTH CASE MANAGER [address] [place] [address] Referral ID Status Reason Start Date Expiration Date Visits Requested Visits Authorized [id number] Authorized PCP Requested Referral 09/29/2023 09/28/2024 1 1 Specialty Diagnoses / Procedures Referred By Contac t Referred To Contact Diagnoses Carpal tunnel syndrome on left Procedures REFER TO PACC - PRE [facility]ESTHESIA CONSULTATION [facility]INIC OFFICE/OUTPATIENT [facility] MDM 60 MINUTES Falguni Hall PA-C [address] [place] [address] Referral ID Status Reason Start Date Expiration Date Visits Requested Visits Authorized [id number] Authorized PCP Requested Referral 12/28/2023 12/27/2024 1 1 Referral ID Status Reason Start Date Expiration Date V isits Requested Visits Authorized [id number] Pending Review 09/05/2023 09/29/2024 1 1 Referral ID Status Reason Start Date Expiration Date V isits Requested Visits Authorized [id number] Pending Review 09/10/2024 10/05/2025 1 1 Chief [...] of both lower extremities Right leg swelling [id number] Venous stasis ulcer Chronic venous insufficiency Dyslipidemia [...] ONSET AFIB, HF January 11, 2025 8:45am [facility] 01/11 NEW ONSET AFIB January 23, [...] ONSET AFIB, HF January 11, 2025 8:45am [facility] 01/11 NEW ONSET AFIB January 23, 2025 10:50am INT LAB ORDERS January 23, 2025 12:1 6pm XRAY CHEST PA & LAT January 31, 2025 12: 36pm CHF EXACERBATION April 16, 2025 1:59p m Chief Complaint Admit Date NEW ONSET AFIB, [...] ONSET AFIB, HF January 11, 2025 8:45am [facility] 21 NEW ONSET AFIB January 23, 2025 10:50am INT LAB ORDERS January 23, 2025 12:1 6pm XRAY CHEST PA & LAT January 31, 2025 12: 36pm CHF EXACERBATION April 16, 2025 1:59p m CHF EXACERBATION April 16, 2025 2:13p m CHF EXACERBATION April 17, 2025 11:29 am CHF EXACERBATION April 18, 2025 9:10a m CHF EXACERBATION April 18, 2025 1:50p m CHF EXACERBATION April 19, 2025 9:18a m CHF EXACERBATION April 20, 2025 9:50a m CHF EXACERBATION April 21, 2025 7:09a m CHF EXACERBATION April 21, 2025 2:43p m CHF EXACERBATION April 22, 2025 7:07a m CHF EXACERBATION April 22, 2025 10:01 am CHF EXACERBATION April 22, 2025 4:11p m CHF EXACERBATION April 23, 2025 7:55a m CHF EXACERBATION April 23, 2025 9:03a m CHF EXACERBATION April 23, 2025 9:06a m CHF EXACERBATION April 23, 2025 10:51 am CHF EXACERBATION April 24, 2025 7:06a m CHF EXACERBATION April 24, 2025 10:37 am CHF EXACERBATION April 25, 2025 11:49 am CHF EXACERBATION April 26, 2025 7:20a m Reason for Visit Admit Date Atrial fibrillation [...] 0am Hypertension January 23, 2025 10:5 0am (HFpEF) heart failure with preserved eje ction fraction April 16, 2025 1:59pm FERMÍN (acute kidney injury) April 16, 2025 1:59pm Atrial fibrillation with rapid ventricul ar response April 16, 2025 1:59pm History of diabetes mellitus April 16, 2 025 1:59pm History of hypothyroidism April 16, 2025 1:59pm Pleural effusion April 16, 2025 1:59p m Chief Complaint Admit Date NEW ONSET AFIB, [...] AFIB, HF January 11, 2025 8:45am [facility] 2/21 NEW ONSET AFIB January 23, 2025 10:50am INT LAB ORDERS January 23, 2025 12:1 6pm XRAY CHEST PA & LAT January 31, 2025 12: 36pm CHF EXACERBATION April 16, 2025 1:59p m CHF EXACERBATION April 16, 2025 2:13p m CHF EXACERBATION April 17, 2025 11:29 am CHF EXACERBATION April 18, 2025 9:10a m CHF EXACERBATION April 18, 2025 1:50p m CHF EXACERBATION April 19, 2025 9:18a m CHF EXACERBATION April 20, 2025 9:50a m CHF EXACERBATION April 21, 2025 7:09a m CHF EXACERBATION April 21, 2025 2:43p m CHF EXACERBATION April 22, 2025 7:07a m CHF EXACERBATION April 22, 2025 10:01 am CHF EXACERBATION April 22, 2025 4:11p m CHF EXACERBATION April 23, 2025 7:55a m CHF EXACERBATION April 23, 2025 9:03a m CHF EXACERBATION April 23, 2025 9:06a m CHF EXACERBATION April 23, 2025 10:51 am CHF EXACERBATION April 24, 2025 7:06a m CHF EXACERBATION April 24, 2025 10:37 am CHF EXACERBATION April 25, 2025 11:49 am CHF EXACERBATION April 26, 2025 7:20a m N/V/D April 27, 2025 1:56a m HYPOTENSION, GI BLEED ON NOAC, PAF WITH RVR April 27, 2025 1:57am Reason for Visit Admit Date Atrial fibrillation [...] 0am Hypertension January 23, 2025 10:5 0am (HFpEF) heart failure with preserved eje ction fraction April 16, 2025 1:59pm FERMÍN (acute kidney injury) April 16, 2025 1:59pm Atrial fibrillation with rapid ventricul ar response April 16, 2025 1:59pm History of diabetes mellitus April 16 2 025 1:59pm History of hypothyroidism April 16, 2025 1:59pm Pleural effusion April 16, 2025 1:59p m Atrial fibrillation with RVR April 27, 2 025 1:57am Chronic anticoagulation April 27, 2025 1 :57am GI (gastrointestinal bleed) April 27 1:57am Melanotic stools April 27, 2025 1:57a m Transient hypotension April 27, 2025 1:5 7am Chief Complaint Admit Date NEW ONSET AFIB, [...] ONSET AFIB, HF January 11, 2025 8:45am [facility] 2 NEW ONSET AFIB January 23, 2025 10:50am INT LAB ORDERS January 23, 2025 12:1 6pm XRAY CHEST PA & LAT January 31, 2025 12: 36pm CHF EXACERBATION April 16, 2025 1:59p m CHF EXACERBATION April 16, 2025 2:13p m CHF EXACERBATION April 17, 2025 11:29 am CHF EXACERBATION April 18, 2025 9:10a m CHF EXACERBATION April 18, 2025 1:50p m CHF EXACERBATION April 19, 2025 9:18a m CHF EXACERBATION April 20, 2025 9:50a m CHF EXACERBATION April 21, 2025 7:09a m CHF EXACERBATION April 21, 2025 2:43p m CHF EXACERBATION April 22, 2025 7:07a m CHF EXACERBATION April 22, 2025 10:01 am CHF EXACERBATION April 22, 2025 4:11p m CHF EXACERBATION April 23, 2025 7:55a m CHF EXACERBATION April 23, 2025 9:03a m CHF EXACERBATION Beryl 3rd, 2025 9:06a m CHF EXACERBATION April 23, 2025 10:51 am CHF EXACERBATION April 24, 2025 7:06a m CHF EXACERBATION April 24, 2025 10:37 am CHF EXACERBATION April 25, 2025 11:49 am CHF EXACERBATION April 26, 2025 7:20a m N/V/D April 27, 2025 1:56a m HYPOTENSION, GI BLEED ON NOAC, PAF WITH RVR April 27, 2025 1:57am HYPOTENSION, GI BLEED ON NOAC, PAF WITH RVR April 27, 2025 7:10pm HYPOTENSION, GI BLEED ON NOAC, PAF WITH RVR April 28, 2025 6:55am HYPOTENSION, GI BLEED ON NOAC, PAF WITH RVR April 29, 2025 7:01am HYPOTENSION, GI BLEED ON NOAC, PAF WITH RVR April 29, 2025 12:49pm HYPOTENSION, GI BLEED ON NOAC, PAF WITH RVR April 29, 2025 12:56pm HYPOTENSION, GI BLEED ON NOAC, PAF WITH RVR April 30, 2025 7:00am HYPOTENSION, GI BLEED ON NOAC, PAF WITH RVR April 30, 2025 7:30pm HYPOTENSION, GI BLEED ON NOAC, PAF WITH RVR May 01, 2025 7:21am HYPOTENSION, GI BLEED ON NOAC, PAF WITH RVR May 01, 2025 4:39pm HYPOTENSION, GI BLEED ON NOAC, PAF WITH RVR May 02, 2025 7:09am HYPOTENSION, GI BLEED ON NOAC, PAF WITH RVR May 02, 2025 7:50pm HYPOTENSION, GI BLEED ON NOAC, PAF WITH RVR May 03, 2025 7:00am HYPOTENSION, GI BLEED ON NOAC, PAF WITH RVR May 03, 2025 5:56pm Reason for Visit Admit Date Atrial fibrillation [...] 0am Hypertension January 23, 2025 10:5 0am (HFpEF) heart failure with preserved eje ction fraction April 16, 2025 1:59pm FERMÍN (acute kidney injury) April 16, 2025 1:59pm Atrial fibrillation with rapid ventricul ar response April 16, 2025 1:59pm History of diabetes mellitus April 16, 2 025 1:59pm History of hypothyroidism April 16, 2025 1:59pm Pleural effusion April 16, 2025 1:59p m (HFpEF) heart failure with preserved eje ction fraction April 27, 2025 1:57am ABLA (acute blood loss anemia) April 27, 2025 1:57am Atrial fibrillation with RVR April 27 025 1:57am Chronic anticoagulation April 27, 2025 1 :57am GI (gastrointestinal bleed) April 27 1:57am Melanotic stools April 27, 2025 1:57a m Pleural effusion April 27, 2025 1:57a m Transient hypotension April 27, 2025 1:5 7am Chief Complaint Admit Date NEW ONSET AFIB, [...] ONSET AFIB, HF January 11, 2025 8:45am [facility] 01/11 NEW ONSET AFIB January 23, 2025 10:50am INT LAB ORDERS January 23, 2025 12:1 6pm XRAY CHEST PA & LAT January 31, 2025 12: 36pm CHF EXACERBATION April 16, 2025 1:59p m CHF EXACERBATION April 16, 2025 2:13p m CHF EXACERBATION April 17, 2025 11:29 am CHF EXACERBATION April 18, 2025 9:10a m CHF EXACERBATION April 18, 2025 1:50p m CHF EXACERBATION April 19, 2025 9:18a m CHF EXACERBATION April 20, 2025 9:50a m CHF EXACERBATION April 21, 2025 7:09a m CHF EXACERBATION April 21, 2025 2:43p m CHF EXACERBATION April 22, 2025 7:07a m CHF EXACERBATION April 22, 2025 10:01 am CHF EXACERBATION April 22, 2025 4:11p m CHF EXACERBATION April 23, 2025 7:55a m CHF EXACERBATION April 23, 2025 9:03a m CHF EXACERBATION April 23, 2025 9:06a m CHF EXACERBATION April 23, 2025 10:51 am CHF EXACERBATION April 24, 2025 7:06a m CHF EXACERBATION April 24, 2025 10:37 am CHF EXACERBATION April 25, 2025 11:49 am CHF EXACERBATION April 26, 2025 7:20a m N/V/D April 27, 2025 1:56a m HYPOTENSION, GI BLEED ON NOAC, PAF WITH RVR April 27, 2025 1:57am HYPOTENSION, GI BLEED ON NOAC, PAF WITH RVR April 27, 2025 7:10pm HYPOTENSION, GI BLEED ON NOAC, PAF WITH RVR April 28, 2025 6:55am HYPOTENSION, GI BLEED ON NOAC, PAF WITH RVR April 29, 2025 7:01am HYPOTENSION, GI BLEED ON NOAC, PAF WITH RVR April 29, 2025 12:49pm HYPOTENSION, GI BLEED ON NOAC, PAF WITH RVR April 29, 2025 12:56pm HYPOTENSION, GI BLEED ON NOAC, PAF WITH RVR April 30, 2025 7:00am HYPOTENSION, GI BLEED ON NOAC, PAF WITH RVR April 30, 2025 7:30pm HYPOTENSION, GI BLEED ON NOAC, PAF WITH RVR May 01, 2025 7:21am HYPOTENSION, GI BLEED ON NOAC, PAF WITH RVR May 01, 2025 4:39pm HYPOTENSION, GI BLEED ON NOAC, PAF WITH RVR May 02, 2025 7:09am HYPOTENSION, GI BLEED ON NOAC, PAF WITH RVR May 02, 2025 7:50pm HYPOTENSION, GI BLEED ON NOAC, PAF WITH RVR May 03, 2025 7:00am HYPOTENSION, GI BLEED ON NOAC, PAF WITH RVR May 03, 2025 5:56pm See clinical notes Veda May 08, 2025 10:54am Reason for Visit Admit Date CHF (congestive heart failure) January 08, 2025 12:50pm Hypertension January 08, 2025 12:50pm Hypothyroidism January 08, 2025 12:50pm Type 2 diabetes mellitus January 08, 2025 12:50pm Atrial fibrillation with rapid ventricul ar response January 08, 2025 12:50pm Pleural effusion on right January 08, 2025 12:50pm Dyslipidemia January 23, 2025 10:5 0am Hypertension January 23, 2025 10:5 0am Atrial fibrillation with rapid ventricul ar response January 23, 2025 10:50am Pleural effusion January 23, 2025 10:5 0am (HFpEF) heart failure with preserved eje ction fraction April 16, 2025 1:59pm History of diabetes mellitus April 16, 025 1:59pm History of hypothyroidism April 16, 2025 1:59pm FERMÍN (acute kidney injury) April 16, 2025 1:59pm Atrial fibrillation with rapid ventricul ar response April 16, 2025 1:59pm Pleural effusion April 16, 2025 1:59p m (HFpEF) heart failure with preserved eje ction fraction April 27, 2025 1:57am ABLA (acute blood loss anemia) April 27, 2025 1:57am Atrial fibrillation with RVR April 27 025 1:57am GI (gastrointestinal bleed) April 27 1:57am Melanotic stools April 27, 2025 1:57a m Pleural effusion April 27, 2025 1:57a m Transient hypotension April 27, 2025 1:5 7am Chronic anticoagulation April 27, 2025 1 :57am Chief Complaint Admit Date NEW ONSET AFIB, [...] ONSET AFIB, HF January 11, 2025 8:45am [facility] 01/11 NEW ONSET AFIB January 23, 2025 10:50am INT LAB ORDERS January 23, 2025 12:1 6pm XRAY CHEST PA & LAT January 31, 2025 12: 36pm CHF EXACERBATION April 16, 2025 1:59p m CHF EXACERBATION April 16, 2025 2:13p m CHF EXACERBATION April 17, 2025 11:29 am CHF EXACERBATION April 18, 2025 9:10a m CHF EXACERBATION April 18, 2025 1:50p m CHF EXACERBATION April 19, 2025 9:18a m CHF EXACERBATION April 20, 2025 9:50a m CHF EXACERBATION April 21, 2025 7:09a m CHF EXACERBATION April 21, 2025 2:43p m CHF EXACERBATION April 22, 2025 7:07a m CHF EXACERBATION April 22, 2025 10:01 am CHF EXACERBATION April 22, 2025 4:11p m CHF EXACERBATION April 23, 2025 7:55a m CHF EXACERBATION April 23, 2025 9:03a m CHF EXACERBATION April 23, 2025 9:06a m CHF EXACERBATION April 23, 2025 10:51 am CHF EXACERBATION April 24, 2025 7:06a m CHF EXACERBATION April 24, 2025 10:37 am CHF EXACERBATION April 25, 2025 11:49 am CHF EXACERBATION April 26, 2025 7:20a m N/V/D April 27, 2025 1:56a m HYPOTENSION, GI BLEED ON NOAC, PAF WITH RVR April 27, 2025 1:57am HYPOTENSION, GI BLEED ON NOAC, PAF WITH RVR April 27, 2025 7:10pm HYPOTENSION, GI BLEED ON NOAC, PAF WITH RVR April 28, 2025 6:55am HYPOTENSION, GI BLEED ON NOAC, PAF WITH RVR April 29, 2025 7:01am HYPOTENSION, GI BLEED ON NOAC, PAF WITH RVR April 29, 2025 12:49pm HYPOTENSION, GI BLEED ON NOAC, PAF WITH RVR April 29, 2025 12:56pm HYPOTENSION, GI BLEED ON NOAC, PAF WITH RVR April 30, 2025 7:00am HYPOTENSION, GI BLEED ON NOAC, PAF WITH RVR April 30, 2025 7:30pm HYPOTENSION, GI BLEED ON NOAC, PAF WITH RVR May 01, 2025 7:21am HYPOTENSION, GI BLEED ON NOAC, PAF WITH RVR May 01, 2025 4:39pm HYPOTENSION, GI BLEED ON NOAC, PAF WITH RVR May 02, 2025 7:09am HYPOTENSION, GI BLEED ON NOAC, PAF WITH RVR May 02, 2025 7:50pm HYPOTENSION, GI BLEED ON NOAC, PAF WITH RVR May 03, 2025 7:00am HYPOTENSION, GI BLEED ON NOAC, PAF WITH RVR May 03, 2025 5:56pm See clinical notes L.L. May 08, 2025 10:54am INT LAB ORDERS May 08, 2025 12:2 7pm HYPOTENSION May 08, 2025 12:5 8pm Chief Complaint Admit Date [facility] 01/11 NEW ONSET AFIB January 23, 2025 10:50am INT LAB ORDERS January 23, 2025 12:1 6pm XRAY CHEST PA & LAT January 31, 2025 12: 36pm CHF EXACERBATION April 16, 2025 1:59p m CHF EXACERBATION April 16, 2025 2:13p m CHF EXACERBATION April 17, 2025 11:29 am CHF EXACERBATION April 18, 2025 9:10a m CHF EXACERBATION April 18, 2025 1:50p m CHF EXACERBATION April 19, 2025 9:18a m CHF EXACERBATION April 20, 2025 9:50a m CHF EXACERBATION April 21, 2025 7:09a m CHF EXACERBATION April 21, 2025 2:43p m CHF EXACERBATION April 22, 2025 7:07a m CHF EXACERBATION April 22, 2025 10:01 am CHF EXACERBATION April 22, 2025 4:11p m CHF EXACERBATION April 23, 2025 7:55a m CHF EXACERBATION April 23, 2025 9:03a m CHF EXACERBATION April 23, 2025 9:06a m CHF EXACERBATION April 23, 2025 10:51 am CHF EXACERBATION April 24, 2025 7:06a m CHF EXACERBATION April 24, 2025 10:37 am CHF EXACERBATION April 25, 2025 11:49 am CHF EXACERBATION April 26, 2025 7:20a m N/V/D April 27, 2025 1:56a m HYPOTENSION, GI BLEED ON NOAC, PAF WITH RVR April 27, 2025 1:57am HYPOTENSION, GI BLEED ON NOAC, PAF WITH RVR Beryl 7th, 2025 7:10pm HYPOTENSION, GI BLEED ON NOAC, PAF WITH RVR April 28, 2025 6:55am HYPOTENSION, GI BLEED ON NOAC, PAF WITH RVR April 29, 2025 7:01am HYPOTENSION, GI BLEED ON NOAC, PAF WITH RVR April 29, 2025 12:49pm HYPOTENSION, GI BLEED ON NOAC, PAF WITH RVR April 29, 2025 12:56pm HYPOTENSION, GI BLEED ON NOAC, PAF WITH RVR April 30, 2025 7:00am HYPOTENSION, GI BLEED ON NOAC, PAF WITH RVR April 30, 2025 7:30pm HYPOTENSION, GI BLEED ON NOAC, PAF WITH RVR May 01, 2025 7:21am HYPOTENSION, GI BLEED ON NOAC, PAF WITH RVR May 01, 2025 4:39pm HYPOTENSION, GI BLEED ON NOAC, PAF WITH RVR May 02, 2025 7:09am HYPOTENSION, GI BLEED ON NOAC, PAF WITH RVR May 02, 2025 7:50pm HYPOTENSION, GI BLEED ON NOAC, PAF WITH RVR May 03, 2025 7:00am HYPOTENSION, GI BLEED ON NOAC, PAF WITH RVR May 03, 2025 5:56pm See clinical notes L.L. May 08, 2025 10:54am INT LAB ORDERS May 08, 2025 12:2 7pm HYPOTENSION May 08, 2025 12:5 8pm WOUND May 15, 2025 7:59 am WOUND May 15, 2025 11:3 0am Reason for Visit Admit Date Dyslipidemia January 23, 2025 10:5 0am Hypertension January 23, 2025 10:5 0am Atrial fibrillation with rapid ventricul ar response January 23, 2025 10:50am Pleural effusion January 23, 2025 10:5 0am (HFpEF) heart failure with preserved eje ction fraction April 16, 2025 1:59pm History of diabetes mellitus April 16, 2 025 1:59pm History of hypothyroidism April 16, 2025 1:59pm FERMÍN (acute kidney injury) April 16, 2025 1:59pm Atrial fibrillation with rapid ventricul ar response April 16, 2025 1:59pm Pleural effusion April 16, 2025 1:59p m (HFpEF) heart failure with preserved eje ction fraction April 27, 2025 1:57am ABLA (acute blood loss anemia) April 27, 2025 1:57am Atrial fibrillation with RVR April 27, 2 025 1:57am GI (gastrointestinal bleed) April 27 1:57am Melanotic stools April 27, 2025 1:57a m Pleural effusion April 27, 2025 1:57a m Transient hypotension April 27, 2025 1:5 7am Chronic anticoagulation April 27, 2025 1 :57am (HFpEF) heart failure with preserved eje ction fraction May 08, 2025 10:54am Atrial fibrillation May 08, 2025 10:5 4am Hypotension May 08, 2025 10:5 4am Dyslipidemia May 08, 2025 10:5 4am Hypertension May 08, 2025 10:5 4am Atrial fibrillation May 15, 2025 7:59 am Venous ulcer of right lower extremity wi th varicose veins May 15, 2025 7:59am Lymphedema May 15, 2025 7:59 am PAD (peripheral artery disease) April 7:59am Type 2 diabetes mellitus May 15, 2025 7:59am Venous ulcer of left lower extremity wit h varicose veins May 15, 2025 7:59am Chief Complaint Admit Date CHF EXACERBATION April 16, 2025 1:59p m CHF EXACERBATION April 16, 2025 2:13p m CHF EXACERBATION April 17, 2025 11:29 am CHF EXACERBATION April 18, 2025 9:10a m CHF EXACERBATION April 18, 2025 1:50p m CHF EXACERBATION April 19, 2025 9:18a m CHF EXACERBATION April 20, 2025 9:50a m CHF EXACERBATION April 21, 2025 7:09a m CHF EXACERBATION April 21, 2025 2:43p m CHF EXACERBATION April 22, 2025 7:07a m CHF EXACERBATION April 22, 2025 10:01 am CHF EXACERBATION April 22, 2025 4:11p m CHF EXACERBATION April 23, 2025 7:55a m CHF EXACERBATION April 23, 2025 9:03a m CHF EXACERBATION April 23, 2025 9:06a m CHF EXACERBATION April 23, 2025 10:51 am CHF EXACERBATION April 24, 2025 7:06a m CHF EXACERBATION April 24, 2025 10:37 am CHF EXACERBATION April 25, 2025 11:49 am CHF EXACERBATION April 26, 2025 7:20a m N/V/D April 27, 2025 1:56a m HYPOTENSION, GI BLEED ON NOAC, PAF WITH RVR April 27, 2025 1:57am HYPOTENSION, GI BLEED ON NOAC, PAF WITH RVR April 27, 2025 7:10pm HYPOTENSION, GI BLEED ON NOAC, PAF WITH RVR April 28, 2025 6:55am HYPOTENSION, GI BLEED ON NOAC, PAF WITH RVR April 29, 2025 7:01am HYPOTENSION, GI BLEED ON NOAC, PAF WITH RVR April 29, 2025 12:49pm HYPOTENSION, GI BLEED ON NOAC, PAF WITH RVR April 29, 2025 12:56pm HYPOTENSION, GI BLEED ON NOAC, PAF WITH RVR April 30, 2025 7:00am HYPOTENSION, GI BLEED ON NOAC, PAF WITH RVR April 30, 2025 7:30pm HYPOTENSION, GI BLEED ON NOAC, PAF WITH RVR May 01, 2025 7:21am HYPOTENSION, GI BLEED ON NOAC, PAF WITH RVR May 01, 2025 4:39pm HYPOTENSION, GI BLEED ON NOAC, PAF WITH RVR May 02, 2025 7:09am HYPOTENSION, GI BLEED ON NOAC, PAF WITH RVR May 02, 2025 7:50pm HYPOTENSION, GI BLEED ON NOAC, PAF WITH RVR May 03, 2025 7:00am HYPOTENSION, GI BLEED ON NOAC, PAF WITH RVR May 03, 2025 5:56pm See clinical notes L.L. May 08, 2025 10:54am INT LAB ORDERS May 08, 2025 12:2 7pm HYPOTENSION May 08, 2025 12:5 8pm WOUND May 15, 2025 7:59 am WOUND May 15, 2025 11:3 0am WOUND June 05, 2025 9:21 am WOUND June 05, 2025 10:3 2am Reason for Visit Admit Date (HFpEF) heart failure with preserved eje ction fraction April 16, 2025 1:59pm History of diabetes mellitus April 16, 2 025 1:59pm History of hypothyroidism April 16, 2025 1:59pm FERMÍN (acute kidney injury) April 16, 2025 1:59pm Atrial fibrillation with rapid ventricul ar response April 16, 2025 1:59pm Pleural effusion April 16, 2025 1:59p m (HFpEF) heart failure with preserved eje ction fraction April 27, 2025 1:57am ABLA (acute blood loss anemia) April 27, 2025 1:57am Atrial fibrillation with RVR April 27, 025 1:57am GI (gastrointestinal bleed) April 27 1:57am Melanotic stools April 27, 2025 1:57a m Pleural effusion April 27, 2025 1:57a m Transient hypotension April 27, 2025 1:5 7am Chronic anticoagulation April 27, 2025 1 :57am (HFpEF) heart failure with preserved eje ction fraction May 08, 2025 10:54am Atrial fibrillation May 08, 2025 10:5 4am Hypotension May 08, 2025 10:5 4am Dyslipidemia May 08, 2025 10:5 4am Hypertension May 08, 2025 10:5 4am Atrial fibrillation May 15, 2025 7:59 am Venous ulcer of right lower extremity wi th varicose veins May 15, 2025 7:59am Lymphedema May 15, 2025 7:59 am PAD (peripheral artery disease) April 7:59am Type 2 diabetes mellitus May 15, 2025 7:59am Venous ulcer of left lower extremity wit h varicose veins May 15, 2025 7:59am Atrial fibrillation June 05, 2025 9:21 am Venous ulcer of right lower extremity wi th varicose veins June 05, 2025 9:21am Lymphedema June 05, 2025 9:21 am PAD (peripheral artery disease) May 9:21am Type 2 diabetes mellitus June 05, 2025 9:21am Venous ulcer of left lower extremity wit h varicose veins June 05, 2025 9:21am Additional Source Comments INFORMATION SOURCE (unrecogn ized section and content) DATE CREATED AUTHOR 05/11/2018 [facility] DATE CREATED AUTHOR AUTHOR'S ORGANIZ ATION 09/29/2024 [facility] DATE CREATED AUTHOR AUTHOR'S ORGANIZ ATION 07/07/2025 [facility] DATE CREATED AUTHOR AUTHOR'S ORGANIZ ATION 07/11/2025 [facility] Source Comments (unrecognize d section and content) In the event this informatio n is protected by the Federal Confidentiality of Alcohol and Drug Abuse Patient Records regulations: The Federal rules restrict any use of the information to criminally investigate or prosecute any alcohol or drug abuse patient.[facility] the event this information is protected by the Federal Confidentiality of Alcohol and Drug Abuse Patient Records regulations: The Federal rules restrict any use of the information to criminally investigate or prosecute any alcohol or drug abuse patient.[facility] the event this information is protected by the Federal Confidentiality of Alcohol and Drug Abuse Patient Records regulations: The Federal rules restrict any use of the information to criminally investigate or prosecute any alcohol or drug abuse patient.[facility] the event this information is protected by the Federal Confidentiality of Alcohol and Drug Abuse Patient Records regulations: The Federal rules restrict any use of the information to criminally investigate or prosecute any alcohol or drug abuse patient.[facility] the event this information is protected by the Federal Confidentiality of Alcohol and Drug Abuse Patient Records regulations: The Federal rules restrict any use of the information to criminally investigate or prosecute any alcohol or drug abuse patient.[facility] the event this information is protected by the Federal Confidentiality of Alcohol and Drug Abuse Patient Records regulations: The Federal rules restrict any use of the information to criminally investigate or prosecute any alcohol or drug abuse patient.[facility] the event this information is protected by the Federal Confidentiality of Alcohol and Drug Abuse Patient Records regulations: The Federal rules restrict any use of the information to criminally investigate or prosecute any alcohol or drug abuse patient.[facility] the event this information is protected by the Federal Confidentiality of Alcohol and Drug Abuse Patient Records regulations: The Federal rules restrict any use of the information to criminally investigate or prosecute any alcohol or drug abuse patient.[facility] the event this information is protected by the Federal Confidentiality of Alcohol and Drug Abuse Patient Records regulations: The Federal rules restrict any use of the information to criminally investigate or prosecute any alcohol or drug abuse patient.[facility] the event this information is protected by the Federal Confidentiality of Alcohol and Drug Abuse Patient Records regulations: The Federal rules restrict any use of the information to criminally investigate or prosecute any alcohol or drug abuse patient.[facility] the event this information is protected by the Federal Confidentiality of Alcohol and Drug Abuse Patient Records regulations: The Federal rules restrict any use of the information to criminally investigate or prosecute any alcohol or drug abuse patient.[facility] the event this information is protected by the Federal Confidentiality of Alcohol and Drug Abuse Patient Records regulations: The Federal rules restrict any use of the information to criminally investigate or prosecute any alcohol or drug abuse patient.[facility] the event this information is protected by the Federal Confidentiality of Alcohol and Drug Abuse Patient Records regulations: The Federal rules restrict any use of the information to criminally investigate or prosecute any alcohol or drug abuse patient.[facility] the event this information is protected by the Federal Confidentiality of Alcohol and Drug Abuse Patient Records regulations: The Federal rules restrict any use of the information to criminally investigate or prosecute any alcohol or drug abuse patient.[facility] HospitalIn the event this information is protected by the Federal Confidentiality of Alcohol and Drug Abuse Patient Records regulations: The Federal rules restrict any use of the information to criminally investigate or prosecute any alcohol or drug abuse patient.[facility]In the event this information is protected by the Federal Confidentiality of Alcohol and Drug Abuse Patient Records regulations: The Federal rules restrict any use of the information to criminally investigate or prosecute any alcohol or drug abuse patient.[facility]In the event this information is protected by the Federal Confidentiality of Alcohol and Drug Abuse Patient Records regulations: The Federal rules restrict any use of the information to criminally investigate or prosecute any alcohol or drug abuse patient.[facility]In the event this information is protected by the Federal Confidentiality of Alcohol and Drug Abuse Patient Records regulations: The Federal rules restrict any use of the information to criminally investigate or prosecute any alcohol or drug abuse patient.[facility]In the event this information is protected by the Federal Confidentiality of Alcohol and Drug Abuse Patient Records regulations: The Federal rules restrict any use of the information to criminally investigate or prosecute any alcohol or drug abuse patient.[facility] HospitalIn the event this information is protected by the Federal Confidentiality of Alcohol and Drug Abuse Patient Records regulations: The Federal rules restrict any use of the information to criminally investigate or prosecute any alcohol or drug abuse patient.[facility] HospitalIn the event this information is protected by the Federal Confidentiality of Alcohol and Drug Abuse Patient Records regulations: The Federal rules restrict any use of the information to criminally investigate or prosecute any alcohol or drug abuse patient.[facility]In the event this information is protected by the Federal Confidentiality of Alcohol and Drug Abuse Patient Records regulations: The Federal rules restrict any use of the information to criminally investigate or prosecute any alcohol or drug abuse patient.[facility] HospitalIn the event this information is protected by the Federal Confidentiality of Alcohol and Drug Abuse Patient Records regulations: The Federal rules restrict any use of the information to criminally investigate or prosecute any alcohol or drug abuse patient.[facility]In the event this information is protected by the Federal Confidentiality of Alcohol and Drug Abuse Patient Records regulations: The Federal rules restrict any use of the information to criminally investigate or prosecute any alcohol or drug abuse patient.[facility] HospitalIn the event this information is protected by the Federal Confidentiality of Alcohol and Drug Abuse Patient Records regulations: The Federal rules restrict any use of the information to criminally investigate or prosecute any alcohol or drug abuse patient.[facility] HospitalIn the event this information is protected by the Federal Confidentiality of Alcohol and Drug Abuse Patient Records regulations: The Federal rules restrict any use of the information to criminally investigate or prosecute any alcohol or drug abuse patient.[facility] HospitalIn the event this information is protected by the Federal Confidentiality of Alcohol and Drug Abuse Patient Records regulations: The Federal rules restrict any use of the information to criminally investigate or prosecute any alcohol or drug abuse patient.[facility] HospitalIn the event this information is protected by the Federal Confidentiality of Alcohol and Drug Abuse Patient Records regulations: The Federal rules restrict any use of the information to criminally investigate or prosecute any alcohol or drug abuse patient.[facility] HospitalIn the event this information is protected by the Federal Confidentiality of Alcohol and Drug Abuse Patient Records regulations: The Federal rules restrict any use of the information to criminally investigate or prosecute any alcohol or drug abuse patient.[facility] HospitalIn the event this information is protected by the Federal Confidentiality of Alcohol and Drug Abuse Patient Records regulations: The Federal rules restrict any use of the information to criminally investigate or prosecute any alcohol or drug abuse patient.[facility] HospitalIn the event this information is protected by the Federal Confidentiality of Alcohol and Drug Abuse Patient Records regulations: The Federal rules restrict any use of the information to criminally investigate or prosecute any alcohol or drug abuse patient.[facility] HospitalIn the event this information is protected by the Federal Confidentiality of Alcohol and Drug Abuse Patient Records regulations: The Federal rules restrict any use of the information to criminally investigate or prosecute any alcohol or drug abuse patient.[facility] HospitalIn the event this information is protected by the Federal Confidentiality of Alcohol and Drug Abuse Patient Records regulations: The Federal rules restrict any use of the information to criminally investigate or prosecute any alcohol or drug abuse patient.[facility] HospitalIn the event this information is protected by the Federal Confidentiality of Alcohol and Drug Abuse Patient Records regulations: The Federal rules restrict any use of the information to criminally investigate or prosecute any alcohol or drug abuse patient.[facility] HospitalIn the event this information is protected by the Federal Confidentiality of Alcohol and Drug Abuse Patient Records regulations: The Federal rules restrict any use of the information to criminally investigate or prosecute any alcohol or drug abuse patient.[facility] HospitalIn the event this information is protected by the Federal Confidentiality of Alcohol and Drug Abuse Patient Records regulations: The Federal rules restrict any use of the information to criminally investigate or prosecute any alcohol or drug abuse patient.[facility]In the event this information is protected by the Federal Confidentiality of Alcohol and Drug Abuse Patient Records regulations: The Federal rules restrict any use of the information to criminally investigate or prosecute any alcohol or drug abuse patient.[facility] HospitalIn the event this information is protected by the Federal Confidentiality of Alcohol and Drug Abuse Patient Records regulations: The Federal rules restrict any use of the information to criminally investigate or prosecute any alcohol or drug abuse patient.[facility] HospitalIn the event this information is protected by the Federal Confidentiality of Alcohol and Drug Abuse Patient Records regulations: The Federal rules restrict any use of the information to criminally investigate or prosecute any alcohol or drug abuse patient.[facility] HospitalIn the event this information is protected by the Federal Confidentiality of Alcohol and Drug Abuse Patient Records regulations: The Federal rules restrict any use of the information to criminally investigate or prosecute any alcohol or drug abuse patient.[facility] HospitalIn the event this information is protected by the Federal Confidentiality of Alcohol and Drug Abuse Patient Records regulations: The Federal rules restrict any use of the information to criminally investigate or prosecute any alcohol or drug abuse patient.[facility] HospitalIn the event this information is protected by the Federal Confidentiality of Alcohol and Drug Abuse Patient Records regulations: The Federal rules restrict any use of the information to criminally investigate or prosecute any alcohol or drug abuse patient.[facility] HospitalIn the event this information is protected by the Federal Confidentiality of Alcohol and Drug Abuse Patient Records regulations: The Federal rules restrict any use of the information to criminally investigate or prosecute any alcohol or drug abuse patient.[facility] HospitalIn the event this information is protected by the Federal Confidentiality of Alcohol and Drug Abuse Patient Records regulations: The Federal rules restrict any use of the information to criminally investigate or prosecute any alcohol or drug abuse patient.[facility] HospitalIn the event this information is protected by the Federal Confidentiality of Alcohol and Drug Abuse Patient Records regulations: The Federal rules restrict any use of the information to criminally investigate or prosecute any alcohol or drug abuse patient.[facility] HospitalIn the event this information is protected by the Federal Confidentiality of Alcohol and Drug Abuse Patient Records regulations: The Federal rules restrict any use of the information to criminally investigate or prosecute any alcohol or drug abuse patient.[facility] HospitalIn the event this information is protected by the Federal Confidentiality of Alcohol and Drug Abuse Patient Records regulations: The Federal rules restrict any use of the information to criminally investigate or prosecute any alcohol or drug abuse patient.[facility] HospitalIn the event this information is protected by the Federal Confidentiality of Alcohol and Drug Abuse Patient Records regulations: The Federal rules restrict any use of the information to criminally investigate or prosecute any alcohol or drug abuse patient.[facility] HospitalIn the event this information is protected by the Federal Confidentiality of Alcohol and Drug Abuse Patient Records regulations: The Federal rules restrict any use of the information to criminally investigate or prosecute any alcohol or drug abuse patient.[facility] HospitalIn the event this information is protected by the Federal Confidentiality of Alcohol and Drug Abuse Patient Records regulations: The Federal rules restrict any use of the information to criminally investigate or prosecute any alcohol or drug abuse patient.[facility]In the event this information is protected by the Federal Confidentiality of Alcohol and Drug Abuse Patient Records regulations: The Federal rules restrict any use of the information to criminally investigate or prosecute any alcohol or drug abuse patient.[facility]In the event this information is protected by the Federal Confidentiality of Alcohol and Drug Abuse Patient Records regulations: The Federal rules restrict any use of the information to criminally investigate or prosecute any alcohol or drug abuse patient.[facility] HospitalIn the event this information is protected by the Federal Confidentiality of Alcohol and Drug Abuse Patient Records regulations: The Federal rules restrict any use of the information to criminally investigate or prosecute any alcohol or drug abuse patient.[facility] HospitalIn the event this information is protected by the Federal Confidentiality of Alcohol and Drug Abuse Patient Records regulations: The Federal rules restrict any use of the information to criminally investigate or prosecute any alcohol or drug abuse patient.[facility] HospitalIn the event this information is protected by the Federal Confidentiality of Alcohol and Drug Abuse Patient Records regulations: The Federal rules restrict any use of the information to criminally investigate or prosecute any alcohol or drug abuse patient.[facility] HospitalIn the event this information is protected by the Federal Confidentiality of Alcohol and Drug Abuse Patient Records regulations: The Federal rules restrict any use of the information to criminally investigate or prosecute any alcohol or drug abuse patient.[facility]In the event this information is protected by the Federal Confidentiality of Alcohol and Drug Abuse Patient Records regulations: The Federal rules restrict any use of the information to criminally investigate or prosecute any alcohol or drug abuse patient.[facility]In the event this information is protected by the Federal Confidentiality of Alcohol and Drug Abuse Patient Records regulations: The Federal rules restrict any use of the information to criminally investigate or prosecute any alcohol or drug abuse patient.[facility] HospitalIn the event this information is protected by the Federal Confidentiality of Alcohol and Drug Abuse Patient Records regulations: The Federal rules restrict any use of the information to criminally investigate or prosecute any alcohol or drug abuse patient.[facility]In the event this information is protected by the Federal Confidentiality of Alcohol and Drug Abuse Patient Records regulations: The Federal rules restrict any use of the information to criminally investigate or prosecute any alcohol or drug abuse patient.[facility]In the event this information is protected by the Federal Confidentiality of Alcohol and Drug Abuse Patient Records regulations: The Federal rules restrict any use of the information to criminally investigate or prosecute any alcohol or drug abuse patient.[facility] HospitalIn the event this information is protected by the Federal Confidentiality of Alcohol and Drug Abuse Patient Records regulations: The Federal rules restrict any use of the information to criminally investigate or prosecute any alcohol or drug abuse patient.[facility]In the event this information is protected by the Federal Confidentiality of Alcohol and Drug Abuse Patient Records regulations: The Federal rules restrict any use of the information to criminally investigate or prosecute any alcohol or drug abuse patient.[facility]In the event this information is protected by the Federal Confidentiality of Alcohol and Drug Abuse Patient Records regulations: The Federal rules restrict any use of the information to criminally investigate or prosecute any alcohol or drug abuse patient.[facility] HospitalIn the event this information is protected by the Federal Confidentiality of Alcohol and Drug Abuse Patient Records regulations: The Federal rules restrict any use of the information to criminally investigate or prosecute any alcohol or drug abuse patient.[facility]In the event this information is protected by the Federal Confidentiality of Alcohol and Drug Abuse Patient Records regulations: The Federal rules restrict any use of the information to criminally investigate or prosecute any alcohol or drug abuse patient.[facility]In the event this information is protected by the Federal Confidentiality of Alcohol and Drug Abuse Patient Records regulations: The Federal rules restrict any use of the information to criminally investigate or prosecute any alcohol or drug abuse patient.[facility]In the event this information is protected by the Federal Confidentiality of Alcohol and Drug Abuse Patient Records regulations: The Federal rules restrict any use of the information to criminally investigate or prosecute any alcohol or drug abuse patient.[facility]In the event this information is protected by the Federal Confidentiality of Alcohol and Drug Abuse Patient Records regulations: The Federal rules restrict any use of the information to criminally investigate or prosecute any alcohol or drug abuse patient.[facility]In the event this information is protected by the Federal Confidentiality of Alcohol and Drug Abuse Patient Records regulations: The Federal rules restrict any use of the information to criminally investigate or prosecute any alcohol or drug abuse patient.[facility]In the event this information is protected by the Federal Confidentiality of Alcohol and Drug Abuse Patient Records regulations: The Federal rules restrict any use of the information to criminally investigate or prosecute any alcohol or drug abuse patient.[facility]In the event this information is protected by the Federal Confidentiality of Alcohol and Drug Abuse Patient Records regulations: The Federal rules restrict any use of the information to criminally investigate or prosecute any alcohol or drug abuse patient.[facility]In the event this information is protected by the Federal Confidentiality of Alcohol and Drug Abuse Patient Records regulations: The Federal rules restrict any use of the information to criminally investigate or prosecute any alcohol or drug abuse patient.[facility]In the event this information is protected by the Federal Confidentiality of Alcohol and Drug Abuse Patient Records regulations: The Federal rules restrict any use of the information to criminally investigate or prosecute any alcohol or drug abuse patient.[facility]In the event this information is protected by the Federal Confidentiality of Alcohol and Drug Abuse Patient Records regulations: The Federal rules restrict any use of the information to criminally investigate or prosecute any alcohol or drug abuse patient.[facility]In the event this information is protected by the Federal Confidentiality of Alcohol and Drug Abuse Patient Records regulations: The Federal rules restrict any use of the information to criminally investigate or prosecute any alcohol or drug abuse patient.[facility]In the event this information is protected by the Federal Confidentiality of Alcohol and Drug Abuse Patient Records regulations: The Federal rules restrict any use of the information to criminally investigate or prosecute any alcohol or drug abuse patient.[facility]In the event this information is protected by the Federal Confidentiality of Alcohol and Drug Abuse Patient Records regulations: The Federal rules restrict any use of the information to criminally investigate or prosecute any alcohol or drug abuse patient.[facility]In the event this information is protected by the Federal Confidentiality of Alcohol and Drug Abuse Patient Records regulations: The Federal rules restrict any use of the information to criminally investigate or prosecute any alcohol or drug abuse patient.[facility]In the event this information is protected by the Federal Confidentiality of Alcohol and Drug Abuse Patient Records regulations: The Federal rules restrict any use of the information to criminally investigate or prosecute any alcohol or drug abuse patient.[facility]In the event this information is protected by the Federal Confidentiality of Alcohol and Drug Abuse Patient Records regulations: The Federal rules restrict any use of the information to criminally investigate or prosecute any alcohol or drug abuse patient.[facility]In the event this information is protected by the Federal Confidentiality of Alcohol and Drug Abuse Patient Records regulations: The Federal rules restrict any use of the information to criminally investigate or prosecute any alcohol or drug abuse patient.[facility]In the event this information is protected by the Federal Confidentiality of Alcohol and Drug Abuse Patient Records regulations: The Federal rules restrict any use of the information to criminally investigate or prosecute any alcohol or drug abuse patient.[facility]In the event this information is protected by the Federal Confidentiality of Alcohol and Drug Abuse Patient Records regulations: The Federal rules restrict any use of the information to criminally investigate or prosecute any alcohol or drug abuse patient.[facility]In the event this information is protected by the Federal Confidentiality of Alcohol and Drug Abuse Patient Records regulations: The Federal rules restrict any use of the information to criminally investigate or prosecute any alcohol or drug abuse patient.[facility] Care Teams (unrecognized sec tion and content) Team Status: Active Member Role Status Dates Dr. Meena Guerra MD Primary Care Provider Active Team Status: Inactive Member Role Status Dates Dr. Meena Guerra MD Primary Care Provider Active Start: [...] Status: Active Member Role Status Dates Dr. Meena Guerra MD Primary Care Provider Active Start: [...] Status: Active Member Role Status Dates Dr. Meena Guerra MD Primary Care Provider Active Start: [...] Status: Active Member Role Status Dates Dr. Meena Guerra MD Primary Care Provider Active Start: [...] Status: Active Member Role Status Dates Dr. Meena Guerra MD Primary Care Provider Active Start: [...] Status: Active Member Role Status Dates Dr. Meena Guerra MD Primary Care Provider Active Start: [...] Status: Active Member Role Status Dates Dr. Meena Guerra MD Primary Care Provider Active Start: [...] Status: Active Member Role Status Dates Dr. Meena Guerra MD Primary Care Provider Active Start: [...] Status: Inactive Member Role Status Dates Dr. Meena Guerra MD Primary Care Provider Active Start: January 23, 2025 End: January 23, 2025 Dr. Meena Guerra MD Referring Provider Active Start: January 23, 2025 End: January 23, 2025 DAVIDSON Lomeli Attending Provider Active St art: January 23, 2025 End: January 23, 2025 Team Status: Inactive Member Role Status Dates Dr. Meena Guerra MD Primary Care Provider Active Start: January 23, 2025 End: January 23, 2025 DAVIDSON Lomeli Attending Provider Active St art: January 23, 2025 End: January 23, 2025 Magdi Thomas PA Referring Provider Active St art: January 23, 2025 End: January 23, 2025 Team Status: Inactive Member Role Status Dates Dr. Meena Guerra MD Primary Care Provider Active Start: January 31, 2025 End: January 31, 2025 Magdi Thomas PA Attending Provider Active St art: January 31, 2025 End: January 31, 2025 DAVIDSON Lomeli Referring Provider Active St art: January 31, 2025 End: January 31, 2025 Team Status: Inactive Member Role Status Dates Dr. Nathan Castanon DO Emergency Provider Activ e Start: April 16, 2025 End: April 26, 2025 Dr. Ras Blas DO Admit Provider Active Star t: April 16, 2025 End: April 26, 2025 Dr. Ras Blas DO Referring Provider Active Start: April 16, 2025 End: April 26, 2025 Dr. Ras Blas DO Other Provider Active Star t: April 16, 2025 End: April 26, 2025 Dr. Amado Bailey MD Attending Provider Active Start: April 16, 2025 End: April 26, 2025 Ras Meza Fior Primary Care Provider Active Sta rt: April 16, 2025 End: April 26, 2025 Dr. Koki Mcnulty MD Other Provider Active Sta rt: April 16, 2025 End: April 26, 2025 Dr. Mgiel Akins MD Other Provider Active Star t: April 16, 2025 End: April 26, 2025 Dr. Oscar Parmar MD Other Provider Active Star t: April 16, 2025 End: April 26, 2025 Dr. Nagi Martin MD Other Provider Active S tart: April 16, 2025 End: April 26, 2025 Dr. Jae Wong DO Other Provider Active Start : April 16, 2025 End: April 26, 2025 Dr. Yang Rogers MD Other Provider Active Start : April 16, 2025 End: April 26, 2025 Dr. Mason Rodriguez DO Other Provider Active St art: April 16, 2025 End: April 26, 2025 Dr. Franko Shaw MD Other Provider Active Star t: April 16, 2025 End: April 26, 2025 Dr. Rich Hand DO Other Provider Active Start: April 16, 2025 End: April 26, 2025 Dr. Aurora Huerta MD Other Provider Active Star t: April 16, 2025 End: April 26, 2025 Dr. Reji Aguilar MD Other Provider Active Start: April 16, 2025 End: April 26, 2025 Dr. Eric Stanford MD Other Provider Active Star t: April 16, 2025 End: April 26, 2025 Dr. Babak Kilpatrick MD Other Provider Active Start: April 16, 2025 End: April 26, 2025 Dr. Ten Turner MD Other Provider Active St art: April 16, 2025 End: April 26, 2025 Dr. Claudia Gomes MD Other Provider Active Start: April 16, 2025 End: April 26, 2025 Dr. Roger Murphy MD Other Provider Active Sta rt: April 16, 2025 End: April 26, 2025 Dr. Nitish Monsivais MD Other Provider Active St art: April 16, 2025 End: April 26, 2025 Dr. Mary Lang MD Other Provider Active Sta rt: April 16, 2025 End: April 26, 2025 Dr. Gustavo Avila MD Other Provider Active St art: April 16, 2025 End: April 26, 2025 Dr. Darien Barry MD Other Provider Active Start: April 16, 2025 End: April 26, 2025 Dr. Amado Cortez MD Other Provider Active Sta rt: April 16, 2025 End: April 26, 2025 Dr. Heron Sosa MD Other Provider Active Start: April 16, 2025 End: April 26, 2025 Dr. Gaudencio Garrison MD Other Provider Active Start : April 16, 2025 End: April 26, 2025 Dr. Edward Le MD Other Provider Active Star t: April 16, 2025 End: April 26, 2025 Dr. Kayla Fields MD Other Provider Active St art: April 16, 2025 End: April 26, 2025 Dr. Aubrey De Luna MD Other Provider Active St art: April 16, 2025 End: April 26, 2025 Dr. Melissa Garcia MD Other Provider Active Start: April 16, 2025 End: April 26, 2025 Team Status: Active Member Role Status Dates Dr. Meena Guerra MD Primary Care Provider Active Start: April 16, 2025 Dr. Nathan Castanon DO Emergency Provider Activ e Start: April 16, 2025 Dr. Ras Blas DO Admit Provider Active Star t: April 16, 2025 Dr. Ras Blas DO Attending Provider Active Start: April 16, 2025 Dr. Ras Blas DO Other Provider Active Star t: April 16, 2025 Team Status: Active Member Role Status Dates Dr. Meena Guerra MD Primary Care Provider Active Start: April 16, 2025 Dr. Edward Le MD Attending Provider Active Start: April 16, 2025 Team Status: Active Member Role Status Dates Dr. Nathan Castanon DO Emergency Provider Activ e Start: April 17, 2025 Dr. Ras Blas DO Admit Provider Active Star t: April 17, 2025 Dr. Ras Blas , DO Other Provider Active Star t: April 17, 2025 Dr. Amado Bailey MD Attending Provider Active Start: April 17, 2025 Dr. Amado Bailey MD Other Provider Active Star t: April 17, 2025 Ras Childress Primary Care Provider Active Sta rt: April 17, 2025 Dr. Melissa Garcia MD Other Provider Active Start: April 17, 2025 Team Status: Active Member Role Status Dates Dr. Nathan Castanon DO Emergency Provider Activ e Start: April 18, 2025 Dr. Ras Blas , DO Admit Provider Active Star t: April 18, 2025 Dr. Ras Blas DO Other Provider Active Star t: April 18, 2025 Dr. Amado Bailey MD Attending Provider Active Start: April 18, 2025 Dr. Amado Bailey MD Other Provider Active Star t: April 18, 2025 Ras Derrick Da Silvas Primary Care Provider Active Sta rt: April 18, 2025 Dr. Meilssa Garcia MD Other Provider Active Start: April 18, 2025 Team Status: Active Member Role Status Dates Dr. Nathan Castanon DO Emergency Provider Activ e Start: April 18, 2025 Dr. Ras Blas DO Admit Provider Active Star t: April 18, 2025 Dr. Ras Blas DO Referring Provider Active Start: April 18, 2025 Dr. Ras Blas DO Other Provider Active Star t: April 18, 2025 Dr. Amado Bailey MD Other Provider Active Star t: April 18, 2025 Ras Derrick Da Silvas Primary Care Provider Active Sta rt: April 18, 2025 Dr. Melissa Garcia MD Other Provider Active Start: April 18, 2025 Dr. Edward Le MD Attending Provider Active Start: April 18, 2025 Dr. Edward Le MD Other Provider Active Star t: April 18, 2025 Team Status: Active Member Role Status Dates Dr. Nathan Castanon DO Emergency Provider Activ e Start: April 19, 2025 Dr. Ras Blas DO Admit Provider Active Star t: April 19, 2025 Dr. Ras Blas DO Other Provider Active Star t: April 19, 2025 Dr. Amado Bailey MD Attending Provider Active Start: April 19, 2025 Dr. Amado Bailey MD Other Provider Active Star t: April 19, 2025 Rasomer Da Silvas Primary Care Provider Active Sta rt: April 19, 2025 Dr. Melissa Garcia MD Other Provider Active Start: April 19, 2025 Dr. Edward Le MD Other Provider Active Star t: April 19, 2025 Team Status: Active Member Role Status Dates Dr. Nathan Castanon DO Emergency Provider Activ e Start: April 20, 2025 Dr. Ras Blas DO Admit Provider Active Star t: April 20, 2025 Dr. Ras Blas DO Other Provider Active Star t: April 20, 2025 Dr. Amado Bailey MD Attending Provider Active Start: April 20, 2025 Dr. Amado Bailey MD Other Provider Active Star t: April 20, 2025 Ras Derrick Da Silvas Primary Care Provider Active Sta rt: April 20, 2025 Dr. Melissa Garcia MD Other Provider Active Start: April 20, 2025 Dr. Edward Le MD Other Provider Active Star t: April 20, 2025 Team Status: Active Member Role Status Dates Dr. Nathan Castanon DO Emergency Provider Activ e Start: April 21, 2025 Dr. Ras Blas DO Admit Provider Active Star t: April 21, 2025 Dr. Ras Blas DO Other Provider Active Star t: April 21, 2025 Dr. Amado Bailey MD Attending Provider Active Start: April 21, 2025 Dr. Amado Bailey MD Other Provider Active Star t: April 21, 2025 Ras Derrick Da Silvas Primary Care Provider Active Sta rt: April 21, 2025 Dr. Edward Le MD Other Provider Active Star t: April 21, 2025 Dr. Melissa Garcia MD Other Provider Active Start: April 21, 2025 Dr. Aubrey De Luna MD Other Provider Active St art: April 21, 2025 Team Status: Active Member Role Status Dates Dr. Nathan Castanon DO Emergency Provider Activ e Start: April 21, 2025 Dr. aRs Blas DO Admit Provider Active Star t: April 21, 2025 Dr. Ras Blas DO Referring Provider Active Start: April 21, 2025 Dr. Ras Blas DO Other Provider Active Star t: April 21, 2025 Dr. Amado Bailey MD Other Provider Active Star t: April 21, 2025 Ras Da Silvas Primary Care Provider Active Sta rt: April 21, 2025 Dr. Edward Le MD Other Provider Active Star t: April 21, 2025 Dr. Melissa Garcia MD Other Provider Active Start: April 21, 2025 Dr. Aubrey De Luna MD Attending Provider Active Start: April 21, 2025 Dr. Aubrey De Luna MD Other Provider Active St art: April 21, 2025 Team Status: Active Member Role Status Dates Dr. Nathan Castanon DO Emergency Provider Activ e Start: April 22, 2025 Dr. Ras Blas DO Admit Provider Active Star t: April 22, 2025 Dr. Ras Blas DO Other Provider Active Star t: April 22, 2025 Dr. Amado Bailey MD Attending Provider Active Start: April 22, 2025 Dr. Amado Bailey MD Other Provider Active Star t: April 22, 2025 Ras Da Silvas Primary Care Provider Active Sta rt: April 22, 2025 Dr. Edward Le MD Other Provider Active Star t: April 22, 2025 Dr. Melissa Garcia MD Other Provider Active Start: April 22, 2025 Dr. Aubrey De Luna MD Other Provider Active St art: April 22, 2025 Team Status: Active Member Role Status Dates Dr. Nathan Castanon DO Emergency Provider Activ e Start: April 22, 2025 Dr. Ras Blas DO Admit Provider Active Star t: April 22, 2025 Dr. Ras Blas DO Referring Provider Active Start: April 22, 2025 Dr. Ras Blas DO Other Provider Active Star t: April 22, 2025 Dr. Amado Bailey MD Other Provider Active Star t: April 22, 2025 Ras Childress Primary Care Provider Active Sta rt: April 22, 2025 Dr. Edward Le MD Other Provider Active Star t: April 22, 2025 Dr. Melissa Garcia MD Other Provider Active Start: April 22, 2025 Dr. Aubrey De Luna MD Other Provider Active St art: April 22, 2025 Dr. Koki Mcnulty MD Other Provider Active Sta rt: April 22, 2025 Dr. Migel Akins MD Other Provider Active Star t: April 22, 2025 Dr. Oscar Parmar MD Other Provider Active Star t: April 22, 2025 Dr. Nagi Martin MD Other Provider Active S tart: April 22, 2025 Dr. Jae Wong DO Attending Provider Active S tart: April 22, 2025 Dr. Jae Wong DO Other Provider Active Start : April 22, 2025 Dr. Yang Rogers MD Other Provider Active Start : April 22, 2025 Dr. Mason Rodriguez DO Other Provider Active St art: April 22, 2025 Dr. Franko Shaw MD Other Provider Active Star t: April 22, 2025 Dr. Rich Hand DO Other Provider Active Start: April 22, 2025 Dr. Aurora Huerta MD Other Provider Active Star t: April 22, 2025 Dr. Reji Aguilar MD Other Provider Active Start: April 22, 2025 Dr. Eric Stanford MD Other Provider Active Star t: April 22, 2025 Dr. Babak Kilpatrick MD Other Provider Active Start: April 22, 2025 Dr. Ten Turner MD Other Provider Active St art: April 22, 2025 Dr. Claudia Gomes MD Other Provider Active Start: April 22, 2025 Dr. Roger Murphy MD Other Provider Active Sta rt: April 22, 2025 Dr. Nitish Monsivais MD Other Provider Active St art: April 22, 2025 Dr. Mary Lang MD Other Provider Active Sta rt: April 22, 2025 Dr. Gustavo Avila MD Other Provider Active St art: April 22, 2025 Dr. Darien Barry MD Other Provider Active Start: April 22, 2025 Dr. Amado Cortez MD Other Provider Active Sta rt: April 22, 2025 Dr. Heron Sosa MD Other Provider Active Start: April 22, 2025 Dr. Gaudencio Garrison MD Other Provider Active Start : April 22, 2025 Team Status: Active Member Role Status Dates Dr. Nathan Castanon DO Emergency Provider Activ e Start: April 22, 2025 Dr. Ras Blas DO Admit Provider Active Star t: April 22, 2025 Dr. Ras Blas DO Referring Provider Active Start: April 22, 2025 Dr. Ras Blas DO Other Provider Active Star t: April 22, 2025 Dr. Amado Bailey MD Other Provider Active Star t: April 22, 2025 Ras Childress Primary Care Provider Active Sta rt: April 22, 2025 Dr. Edward Le MD Other Provider Active Star t: April 22, 2025 Dr. Melissa Garcia MD Other Provider Active Start: April 22, 2025 Dr. Aubrey De Luna MD Other Provider Active St art: April 22, 2025 Dr. Koki Mcnulty MD Other Provider Active Sta rt: April 22, 2025 Dr. Migel Akins MD Other Provider Active Star t: April 22, 2025 Dr. Oscar Parmar MD Other Provider Active Star t: April 22, 2025 Dr. Nagi Martin MD Other Provider Active S tart: April 22, 2025 Dr. Jae Wong DO Other Provider Active Start : April 22, 2025 Dr. Yang Rogers MD Other Provider Active Start : April 22, 2025 Dr. Mason Rodriguez DO Other Provider Active St art: April 22, 2025 Dr. Franko Shaw MD Other Provider Active Star t: April 22, 2025 Dr. Rich Hand DO Other Provider Active Start: April 22, 2025 Dr. Aurora Huerta MD Other Provider Active Star t: April 22, 2025 Dr. Reji Aguilar MD Other Provider Active Start: April 22, 2025 Dr. Eric Stanford MD Other Provider Active Star t: April 22, 2025 Dr. Babak Kilpatrick MD Other Provider Active Start: April 22, 2025 Dr. Ten Turner MD Other Provider Active St art: April 22, 2025 Dr. Claudia Gomes MD Other Provider Active Start: April 22, 2025 Dr. Roger Murphy MD Other Provider Active Sta rt: April 22, 2025 Dr. Nitish Monsivais MD Other Provider Active St art: April 22, 2025 Dr. Mary Lang MD Other Provider Active Sta rt: April 22, 2025 Dr. Gustavo Avila MD Other Provider Active St art: April 22, 2025 Dr. Darien Barry MD Other Provider Active Start: April 22, 2025 Dr. Amado Cortez MD Other Provider Active Sta rt: April 22, 2025 Dr. Heron Sosa MD Other Provider Active Start: April 22, 2025 Dr. Gaudencio Garrison MD Other Provider Active Start : April 22, 2025 Dr. Kayla Fields MD Attending Provider Active Start: April 22, 2025 Dr. Kayla Fields MD Other Provider Active St art: April 22, 2025 Team Status: Active Member Role Status Dates Dr. Nathan Castanon DO Emergency Provider Activ e Start: April 23, 2025 Dr. Ras Blas DO Admit Provider Active Star t: April 23, 2025 Dr. Ras Blas DO Other Provider Active Star t: April 23, 2025 Dr. Amado Bailey MD Attending Provider Active Start: April 23, 2025 Dr. Amado Bailey MD Other Provider Active Star t: April 23, 2025 Ras Childress Primary Care Provider Active Sta rt: April 23, 2025 Dr. Edward Le MD Other Provider Active Star t: April 23, 2025 Dr. Melissa Garcia MD Other Provider Active Start: April 23, 2025 Dr. Aubrey De Luna MD Other Provider Active St art: April 23, 2025 Dr. Koki Mcnulty MD Other Provider Active Sta rt: April 23, 2025 Dr. Migel Akins MD Other Provider Active Star t: April 23, 2025 Dr. Oscar Parmar MD Other Provider Active Star t: April 23, 2025 Dr. Nagi Martin MD Other Provider Active S tart: April 23, 2025 Dr. Jae Wong DO Other Provider Active Start : April 23, 2025 Dr. Yang Rogers MD Other Provider Active Start : April 23, 2025 Dr. Mason Rodriguez , DO Other Provider Active St art: April 23, 2025 Dr. Franko Shaw MD Other Provider Active Star t: April 23, 2025 Dr. Rich Hand , Other Provider Active Start: April 23, 2025 Dr. Aurora Huerta MD Other Provider Active Star t: April 23, 2025 Dr. Reji Aguilar MD Other Provider Active Start: April 23, 2025 Dr. Eric Stanford MD Other Provider Active Star t: April 23, 2025 Dr. Babak Kilpatrick MD Other Provider Active Start: April 23, 2025 Dr. Ten Turner MD Other Provider Active St art: April 23, 2025 Dr. Claudia Gomes MD Other Provider Active Start: April 23, 2025 Dr. Roger Murphy MD Other Provider Active Sta rt: April 23, 2025 Dr. Nitish Monsivais MD Other Provider Active St art: April 23, 2025 Dr. Mary Lang MD Other Provider Active Sta rt: April 23, 2025 Dr. Gustavo Avila MD Other Provider Active St art: April 23, 2025 Dr. Darien Barry MD Other Provider Active Start: April 23, 2025 Dr. Amado Cortez MD Other Provider Active Sta rt: April 23, 2025 Dr. Heron Ssoa MD Other Provider Active Start: April 23, 2025 Dr. Gaudencio Garrison MD Other Provider Active Start : April 23, 2025 Dr. Kayla Fields MD Other Provider Active St art: April 23, 2025 Team Status: Active Member Role Status Dates Dr. Nathan Castanon DO Emergency Provider Activ e Start: April 23, 2025 Dr. Ras Blas DO Admit Provider Active Star t: April 23, 2025 Dr. Ras Blas DO Referring Provider Active Start: April 23, 2025 Dr. Ras Blas DO Other Provider Active Star t: April 23, 2025 Dr. Amado Bailey MD Other Provider Active Star t: April 23, 2025 Ras Childress Primary Care Provider Active Sta rt: April 23, 2025 Dr. Edward Le MD Other Provider Active Star t: April 23, 2025 Dr. Melissa Garcia MD Other Provider Active Start: April 23, 2025 Dr. Aubrey De Luna MD Other Provider Active St art: April 23, 2025 Dr. Koki Mcnulty MD Other Provider Active Sta rt: April 23, 2025 Dr. Migel Akins MD Other Provider Active Star t: April 23, 2025 Dr. Oscar Parmar MD Other Provider Active Star t: April 23, 2025 Dr. Nagi Martin MD Other Provider Active S tart: April 23, 2025 Dr. Jae Wong , Other Provider Active Start : April 23, 2025 Dr. Yang Rogers MD Other Provider Active Start : April 23, 2025 Dr. Mason Rodriguez , Other Provider Active St art: April 23, 2025 Dr. Franko Shaw MD Other Provider Active Star t: April 23, 2025 Dr. Rich Hand DO Other Provider Active Start: April 23, 2025 Dr. Aurora Huerta MD Other Provider Active Star t: April 23, 2025 Dr. Reji Aguilar MD Other Provider Active Start: April 23, 2025 Dr. Eric Stanford MD Other Provider Active Star t: April 23, 2025 Dr. Babak Kilpatrick MD Other Provider Active Start: April 23, 2025 Dr. Ten Turner MD Other Provider Active St art: April 23, 2025 Dr. Claudia Gomes MD Other Provider Active Start: April 23, 2025 Dr. Roger Murphy MD Other Provider Active Sta rt: April 23, 2025 Dr. Nitish Monsivais MD Other Provider Active St art: April 23, 2025 Dr. Mary Lang MD Other Provider Active Sta rt: April 23, 2025 Dr. Gustavo Avila MD Other Provider Active St art: April 23, 2025 Dr. Darien Barry MD Other Provider Active Start: April 23, 2025 Dr. Amado Cortez MD Other Provider Active Sta rt: April 23, 2025 Dr. Heron Sosa MD Other Provider Active Start: April 23, 2025 Dr. Gaudencio Garrison MD Other Provider Active Start : April 23, 2025 Dr. Kayla Fields MD Attending Provider Active Start: April 23, 2025 Dr. Kayla Fields MD Other Provider Active St art: April 23, 2025 Team Status: Active Member Role Status Dates Dr. Nathan Castanon DO Emergency Provider Activ e Start: April 23, 2025 Dr. Ras Blas , Admit Provider Active Star t: April 23, 2025 Dr. Ras Blas DO Referring Provider Active Start: April 23, 2025 Dr. Ras Blas DO Other Provider Active Star t: April 23, 2025 Dr. Amado Bailey MD Other Provider Active Star t: April 23, 2025 Ras Childress Primary Care Provider Active Sta rt: April 23, 2025 Dr. Edward Le MD Other Provider Active Star t: April 23, 2025 Dr. Melissa Garcia MD Other Provider Active Start: April 23, 2025 Dr. Aubrey De Luna MD Other Provider Active St art: April 23, 2025 Dr. Koki Mcnulty MD Other Provider Active Sta rt: April 23, 2025 Dr. Migel Akins MD Other Provider Active Star t: April 23, 2025 Dr. Oscar Parmar MD Other Provider Active Star t: April 23, 2025 Dr. Nagi Martin MD Other Provider Active S tart: April 23, 2025 Dr. Jae Wong DO Attending Provider Active S tart: April 23, 2025 Dr. Jae Wong DO Other Provider Active Start : April 23, 2025 Dr. Yang Rogers MD Other Provider Active Start : April 23, 2025 Dr. Mason Rodriguez DO Other Provider Active St art: April 23, 2025 Dr. Franko Shaw MD Other Provider Active Star t: April 23, 2025 Dr. Rich Hand DO Other Provider Active Start: April 23, 2025 Dr. Aurora Huerta MD Other Provider Active Star t: April 23, 2025 Dr. Reji Aguilar MD Other Provider Active Start: April 23, 2025 Dr. Eric Stanford MD Other Provider Active Star t: April 23, 2025 Dr. Babak Kilpatrick MD Other Provider Active Start: April 23, 2025 Dr. Ten Turner MD Other Provider Active St art: April 23, 2025 Dr. Claudia Gomes MD Other Provider Active Start: April 23, 2025 Dr. Roger Murphy MD Other Provider Active Sta rt: April 23, 2025 Dr. Nitish Monsivais MD Other Provider Active St art: April 23, 2025 Dr. Mary Lang MD Other Provider Active Sta rt: April 23, 2025 Dr. Gustavo Avila MD Other Provider Active St art: April 23, 2025 Dr. Darien Barry MD Other Provider Active Start: April 23, 2025 Dr. Amado Cortez MD Other Provider Active Sta rt: April 23, 2025 Dr. Heron Sosa MD Other Provider Active Start: April 23, 2025 Dr. Gaudencio Garrison MD Other Provider Active Start : April 23, 2025 Dr. Kayla Fields MD Other Provider Active St art: April 23, 2025 Team Status: Active Member Role Status Dates Dr. Nathan Castanon DO Emergency Provider Activ e Start: April 23, 2025 Dr. Ras Blas DO Admit Provider Active Star t: April 23, 2025 Dr. Ras Blas DO Referring Provider Active Start: April 23, 2025 Dr. Ras Blas DO Other Provider Active Star t: April 23, 2025 Dr. Amado Bailey MD Other Provider Active Star t: April 23, 2025 Ras Childress Primary Care Provider Active Sta rt: April 23, 2025 Dr. Edward Le MD Other Provider Active Star t: April 23, 2025 Dr. Melissa Garcia MD Other Provider Active Start: April 23, 2025 Dr. Aubrey De Luna MD Other Provider Active St art: April 23, 2025 Dr. Koki Mcnulty MD Other Provider Active Sta rt: April 23, 2025 Dr. Migel Akins MD Other Provider Active Star t: April 23, 2025 Dr. Oscar Parmar MD Other Provider Active Star t: April 23, 2025 Dr. Nagi Martin MD Other Provider Active S tart: April 23, 2025 Dr. Jae Wong DO Other Provider Active Start : April 23, 2025 Dr. Yang Rogers MD Other Provider Active Start : April 23, 2025 Dr. Mason Rodriguez DO Other Provider Active St art: April 23, 2025 Dr. Franko Shaw MD Other Provider Active Star t: April 23, 2025 Dr. Rich Hand DO Other Provider Active Start: April 23, 2025 Dr. Aurora Huerta MD Other Provider Active Star t: April 23, 2025 Dr. Reji Aguilar MD Other Provider Active Start: April 23, 2025 Dr. Eric Stanford MD Other Provider Active Star t: April 23, 2025 Dr. Babak Kilpatrick MD Other Provider Active Start: April 23, 2025 Dr. Ten Turner MD Other Provider Active St art: April 23, 2025 Dr. Claudia Gomes MD Other Provider Active Start: April 23, 2025 Dr. Roger Murphy MD Other Provider Active Sta rt: April 23, 2025 Dr. Nitish Monsivais MD Other Provider Active St art: April 23, 2025 Dr. Mary Lang MD Other Provider Active Sta rt: April 23, 2025 Dr. Gustavo Avila MD Other Provider Active St art: April 23, 2025 Dr. Darien Barry MD Other Provider Active Start: April 23, 2025 Dr. Amado Cortez MD Other Provider Active Sta rt: April 23, 2025 Dr. Heron Sosa MD Other Provider Active Start: April 23, 2025 Dr. Gaudencio Garrison MD Other Provider Active Start : April 23, 2025 Dr. Kayla Fields MD Other Provider Active St art: April 23, 2025 Mckayla CEDEÑO PAPeeC Attending Provider Active Start: April 23, 2025 Team Status: Active Member Role Status Dates Dr. Nathan Castanon DO Emergency Provider Activ e Start: April 24, 2025 Dr. Ras Blas DO Admit Provider Active Star t: April 24, 2025 Dr. Ras Blas DO Other Provider Active Star t: April 24, 2025 Dr. Amado Bailey MD Attending Provider Active Start: April 24, 2025 Dr. Amado Bailey MD Other Provider Active Star t: April 24, 2025 Ras Childress Primary Care Provider Active Sta rt: April 24, 2025 Dr. Edward Le MD Other Provider Active Star t: April 24, 2025 Dr. Melissa Garcia MD Other Provider Active Start: April 24, 2025 Dr. Aubrey De Luna MD Other Provider Active St art: April 24, 2025 Dr. Koki Mcnulty MD Other Provider Active Sta rt: April 24, 2025 Dr. Migel Akins MD Other Provider Active Star t: April 24, 2025 Dr. Oscar Parmar MD Other Provider Active Star t: April 24, 2025 Dr. Nagi Martin MD Other Provider Active S tart: April 24, 2025 Dr. Jae Wong , Other Provider Active Start : April 24, 2025 Dr. Yang Rogers MD Other Provider Active Start : April 24, 2025 Dr. Mason Rodriguez DO Other Provider Active St art: April 24, 2025 Dr. Franko Shaw MD Other Provider Active Star t: April 24, 2025 Dr. Rich Hand , Other Provider Active Start: April 24, 2025 Dr. Aurora Huerta MD Other Provider Active Star t: April 24, 2025 Dr. Reji Aguilar MD Other Provider Active Start: April 24, 2025 Dr. Eric Stanford MD Other Provider Active Star t: April 24, 2025 Dr. Babak Kilpatrick MD Other Provider Active Start: April 24, 2025 Dr. Ten Turner MD Other Provider Active St art: April 24, 2025 Dr. Claudia Gomes MD Other Provider Active Start: April 24, 2025 Dr. Roger Murphy MD Other Provider Active Sta rt: April 24, 2025 Dr. Nitish Monsivais MD Other Provider Active St art: April 24, 2025 Dr. Mary Lang MD Other Provider Active Sta rt: April 24, 2025 Dr. Gustavo Avila MD Other Provider Active St art: April 24, 2025 Dr. Darien Barry MD Other Provider Active Start: April 24, 2025 Dr. Amado Cortez MD Other Provider Active Sta rt: April 24, 2025 Dr. Heron Sosa MD Other Provider Active Start: April 24, 2025 Dr. Gaudencio Garrison MD Other Provider Active Start : April 24, 2025 Dr. Kayla Fields MD Other Provider Active St art: April 24, 2025 Team Status: Active Member Role Status Dates Dr. Nathan Castanon DO Emergency Provider Activ e Start: April 24, 2025 Dr. Ras Blas DO Admit Provider Active Star t: April 24, 2025 Dr. Ras Blas DO Referring Provider Active Start: April 24, 2025 Dr. Ras Blas DO Other Provider Active Star t: April 24, 2025 Dr. Amado Bailey MD Other Provider Active Star t: April 24, 2025 Ras Childress Primary Care Provider Active Sta rt: April 24, 2025 Dr. Edward Le MD Other Provider Active Star t: April 24, 2025 Dr. Melissa aGrcia MD Other Provider Active Start: April 24, 2025 Dr. Aubrey De Luna MD Other Provider Active St art: April 24, 2025 Dr. Koki Mcnulty MD Other Provider Active Sta rt: April 24, 2025 Dr. Migel Akins MD Other Provider Active Star t: April 24, 2025 Dr. Oscar Parmar MD Other Provider Active Star t: April 24, 2025 Dr. Nagi Martin MD Other Provider Active S tart: April 24, 2025 Dr. Jae Wong DO Other Provider Active Start : April 24, 2025 Dr. Yang Rogers MD Other Provider Active Start : April 24, 2025 Dr. Mason Rodriguez DO Other Provider Active St art: April 24, 2025 Dr. Franko Shaw MD Other Provider Active Star t: April 24, 2025 Dr. Rich Hand DO Other Provider Active Start: April 24, 2025 Dr. Aurora Huerta MD Other Provider Active Star t: April 24, 2025 Dr. Reji Aguilar MD Other Provider Active Start: April 24, 2025 Dr. Eric Stanford MD Other Provider Active Star t: April 24, 2025 Dr. Babak iKlpatrick MD Other Provider Active Start: April 24, 2025 Dr. Ten Turner MD Other Provider Active St art: April 24, 2025 Dr. Claudia Gomes MD Other Provider Active Start: April 24, 2025 Dr. Roger Murphy MD Other Provider Active Sta rt: April 24, 2025 Dr. Nitish Monsivais MD Other Provider Active St art: April 24, 2025 Dr. Mary Lang MD Other Provider Active Sta rt: April 24, 2025 Dr. Gustavo Avila MD Other Provider Active St art: April 24, 2025 Dr. Darien Barry MD Other Provider Active Start: April 24, 2025 Dr. Amado Cortez MD Other Provider Active Sta rt: April 24, 2025 Dr. Heron Sosa MD Other Provider Active Start: April 24, 2025 Dr. Gaudencio Garrison MD Other Provider Active Start : April 24, 2025 Dr. Kayla Fields MD Attending Provider Active Start: April 24, 2025 Dr. Kayla Fields MD Other Provider Active St art: April 24, 2025 Team Status: Active Member Role Status Dates Dr. Nathan Castanon DO Emergency Provider Activ e Start: April 25, 2025 Dr. Ras Blas DO Admit Provider Active Star t: April 25, 2025 Dr. Ras Blas DO Other Provider Active Star t: April 25, 2025 Dr. Amado Bailey MD Attending Provider Active Start: April 25, 2025 Dr. Amado Bailey MD Other Provider Active Star t: April 25, 2025 Ras Childress Primary Care Provider Active Sta rt: April 25, 2025 Dr. Koki Mcnulty MD Other Provider Active Sta rt: April 25, 2025 Dr. Migel Akins MD Other Provider Active Star t: April 25, 2025 Dr. Oscar Parmar MD Other Provider Active Star t: April 25, 2025 Dr. Nagi Martin MD Other Provider Active S tart: April 25, 2025 Dr. Jae Wong , Other Provider Active Start : April 25, 2025 Dr. Yang Rogers MD Other Provider Active Start : April 25, 2025 Dr. Mason Rodriguez , Other Provider Active St art: April 25, 2025 Dr. Franko Shaw MD Other Provider Active Star t: April 25, 2025 Dr. Rich Hand , Other Provider Active Start: April 25, 2025 Dr. Aurora Huerta MD Other Provider Active Star t: April 25, 2025 Dr. Reji Aguilar MD Other Provider Active Start: April 25, 2025 Dr. Eric Stanford MD Other Provider Active Star t: April 25, 2025 Dr. Babak Kilpatrick MD Other Provider Active Start: April 25, 2025 Dr. Ten Turner MD Other Provider Active St art: April 25, 2025 Dr. Claudia Gomes MD Other Provider Active Start: April 25, 2025 Dr. Roger Murphy MD Other Provider Active Sta rt: April 25, 2025 Dr. Nitish Monsivais MD Other Provider Active St art: April 25, 2025 Dr. Mary Lang MD Other Provider Active Sta rt: April 25, 2025 Dr. Gustavo Avila MD Other Provider Active St art: April 25, 2025 Dr. Darien Barry MD Other Provider Active Start: April 25, 2025 Dr. Amado Cortez MD Other Provider Active Sta rt: April 25, 2025 Dr. Heron Sosa MD Other Provider Active Start: April 25, 2025 Dr. Gaudencio Garrison MD Other Provider Active Start : April 25, 2025 Dr. Edward Le MD Other Provider Active Star t: April 25, 2025 Dr. Kayla Fields MD Other Provider Active St art: April 25, 2025 Dr. Aubrey De Luna MD Other Provider Active St art: April 25, 2025 Dr. Melissa Garcia MD Other Provider Active Start: April 25, 2025 Team Status: Active Member Role Status Dates Dr. Nathan Castanon DO Emergency Provider Activ e Start: April 26, 2025 Dr. Ras Blas DO Admit Provider Active Star t: April 26, 2025 Dr. Ras Blas DO Other Provider Active Star t: April 26, 2025 Dr. Amado Bailey MD Attending Provider Active Start: April 26, 2025 Dr. Amado Bailey MD Other Provider Active Star t: April 26, 2025 Ras Childress Primary Care Provider Active Sta rt: April 26, 2025 Dr. Koki Mcnulty MD Other Provider Active Sta rt: April 26, 2025 Dr. Migel Akins MD Other Provider Active Star t: April 26, 2025 Dr. Oscar Parmar MD Other Provider Active Star t: April 26, 2025 Dr. Nagi Martin MD Other Provider Active S tart: April 26, 2025 Dr. Jae Wong , Other Provider Active Start : April 26, 2025 Dr. Yang Rogers MD Other Provider Active Start : April 26, 2025 Dr. Mason Rodriguez , Other Provider Active St art: April 26, 2025 Dr. Franko Shaw MD Other Provider Active Star t: April 26, 2025 Dr. Rich Hand , Other Provider Active Start: April 26, 2025 Dr. Aurora Huerta MD Other Provider Active Star t: April 26, 2025 Dr. Reji Aguilar MD Other Provider Active Start: April 26, 2025 Dr. Eric Stanford MD Other Provider Active Star t: April 26, 2025 Dr. Babak Kilpatrick MD Other Provider Active Start: April 26, 2025 Dr. Ten Turner MD Other Provider Active St art: April 26, 2025 Dr. Claudia Gomes MD Other Provider Active Start: April 26, 2025 Dr. Roger Murphy MD Other Provider Active Sta rt: April 26, 2025 Dr. Nitish Monsivais MD Other Provider Active St art: April 26, 2025 Dr. Mary Lang MD Other Provider Active Sta rt: April 26, 2025 Dr. Gustavo Avila MD Other Provider Active St art: April 26, 2025 Dr. Darien Barry MD Other Provider Active Start: April 26, 2025 Dr. Amado Cortez MD Other Provider Active Sta rt: April 26, 2025 Dr. Heron Sosa MD Other Provider Active Start: April 26, 2025 Dr. Gaudencio Garrison MD Other Provider Active Start : April 26, 2025 Dr. Edward Le MD Other Provider Active Star t: April 26, 2025 Dr. Kayla Fields MD Other Provider Active St art: April 26, 2025 Dr. Aubrey De Luna MD Other Provider Active St art: April 26, 2025 Dr. Melissa Garcia MD Other Provider Active Start: April 26, 2025 Team Status: Active Member Role Status Dates Ras Childress Primary Care Provider Active Sta rt: April 27, 2025 Dr. Sammy Guerrero DO Emergency Provider Active Start : April 27, 2025 Dr. Dayana Abel MD Attending Provider Active Start: April 27, 2025 Team Status: Inactive Member Role Status Dates Dr. Sammy Guerrero DO Emergency Provider Active Start : April 27, 2025 End: May 03, 2025 Dr. Dayana Abel MD Admit Provider Active St art: April 27, 2025 End: May 03, 2025 Dr. Dayana Abel MD Other Provider Active St art: April 27, 2025 End: May 03, 2025 Dr. Ras Blas DO Attending Provider Active Start: April 27, 2025 End: May 03, 2025 Meena VIEIRA MD Primary Care Provider Active Start: April 27, 2025 End: May 03, 2025 Team Status: Active Member Role Status Dates Ras Childress Primary Care Provider Active Sta rt: April 27, 2025 Dr. Sammy Guerrero DO Emergency Provider Active Start : April 27, 2025 Dr. Dayana Abel MD Admit Provider Active St art: April 27, 2025 Dr. Dayana Abel MD Other Provider Active St art: April 27, 2025 Dr. Ras Blas DO Other Provider Active Star t: April 27, 2025 Dr. Reji Aguilar MD Other Provider Active Start: April 27, 2025 Dr. Darien Barry MD Other Provider Active Start: April 27, 2025 Dr. Oscar Parmar MD Other Provider Active Star t: April 27, 2025 Dr. Jae Wong DO Other Provider Active Start : April 27, 2025 Dr. Amado Cortez MD Other Provider Active Sta rt: April 27, 2025 Dr. Gustavo Avila MD Other Provider Active St art: April 27, 2025 Dr. Nagi Martin MD Other Provider Active S tart: April 27, 2025 Dr. Claudia Gomes MD Other Provider Active Start: April 27, 2025 Dr. Yang Rogers MD Other Provider Active Start : April 27, 2025 Dr. Heron Sosa MD Other Provider Active Start: April 27, 2025 Dr. Gaudencio Garrison MD Other Provider Active Start : April 27, 2025 Dr. Aurora Huerta MD Other Provider Active Star t: April 27, 2025 Dr. Koki Mcnulty MD Other Provider Active Sta rt: April 27, 2025 Dr. Mary Lang MD Other Provider Active Sta rt: April 27, 2025 Dr. Eric Stanford MD Other Provider Active Star t: April 27, 2025 Dr. Nitish Monsivais MD Other Provider Active St art: April 27, 2025 Dr. Franko Shaw MD Other Provider Active Star t: April 27, 2025 Dr. Mason Rodriguez DO Other Provider Active St art: April 27, 2025 Dr. Babak Kilpatrick MD Other Provider Active Start: April 27, 2025 Dr. Ten Turner MD Other Provider Active St art: April 27, 2025 Dr. Rich Hand DO Other Provider Active Start: April 27, 2025 Dr. Migel Akins MD Other Provider Active Star t: April 27, 2025 Dr. Roger Murphy MD Other Provider Active Sta rt: April 27, 2025 Dr. Jayden Still DO Attending Provider Active Start: April 27, 2025 Team Status: Active Member Role Status Dates Ras Childress Primary Care Provider Active Sta rt: April 28, 2025 Dr. Sammy Guerrero DO Emergency Provider Active Start : April 28, 2025 Dr. Dayana Abel MD Admit Provider Active St art: April 28, 2025 Dr. Dayana Abel MD Other Provider Active St art: April 28, 2025 Dr. Ras Blas DO Attending Provider Active Start: April 28, 2025 Dr. Ras Blas DO Other Provider Active Star t: April 28, 2025 Dr. Reji Aguilar MD Other Provider Active Start: April 28, 2025 Dr. Darien Barry MD Other Provider Active Start: April 28, 2025 Dr. Oscar Parmar MD Other Provider Active Star t: April 28, 2025 Dr. Jae Wong DO Other Provider Active Start : April 28, 2025 Dr. Amado Cortez MD Other Provider Active Sta rt: April 28, 2025 Dr. Gustavo Avila MD Other Provider Active St art: April 28, 2025 Dr. Nagi Martin MD Other Provider Active S tart: April 28, 2025 Dr. Claudia Gomes MD Other Provider Active Start: April 28, 2025 Dr. Yang Rogers MD Other Provider Active Start : April 28, 2025 Dr. Heron Sosa MD Other Provider Active Start: April 28, 2025 Dr. Gaudencio Garrison MD Other Provider Active Start : April 28, 2025 Dr. Aurora Huerta MD Other Provider Active Star t: April 28, 2025 Dr. Koki Mcnulty MD Other Provider Active Sta rt: April 28, 2025 Dr. Mary Lang MD Other Provider Active Sta rt: April 28, 2025 Dr. Eric Stanford MD Other Provider Active Star t: April 28, 2025 Dr. Nitish Monsivais MD Other Provider Active St art: April 28, 2025 Dr. Franko Shaw MD Other Provider Active Star t: April 28, 2025 Dr. Mason Rodriguez , Other Provider Active St art: April 28, 2025 Dr. Babak Kilpatrick MD Other Provider Active Start: April 28, 2025 Dr. Ten Turner MD Other Provider Active St art: April 28, 2025 Dr. Rich Hand DO Other Provider Active Start: April 28, 2025 Dr. Migel Akins MD Other Provider Active Star t: April 28, 2025 Dr. Roger Murphy MD Other Provider Active Sta rt: April 28, 2025 Team Status: Active Member Role Status Dates Ras Childress Primary Care Provider Active Sta rt: April 29, 2025 Dr. Sammy Guerrero DO Emergency Provider Active Start : April 29, 2025 Dr. Dayana Abel MD Admit Provider Active St art: April 29, 2025 Dr. Dayana Abel MD Other Provider Active St art: April 29, 2025 Dr. Ras Blas , Other Provider Active Star t: April 29, 2025 Dr. Reji Aguilar MD Other Provider Active Start: April 29, 2025 Dr. Darien Barry MD Other Provider Active Start: April 29, 2025 Dr. Oscar Parmar MD Other Provider Active Star t: April 29, 2025 Dr. Jae Wong DO Attending Provider Active S tart: April 29, 2025 Dr. Jae Wong , Other Provider Active Start : April 29, 2025 Dr. Amado Cortez MD Other Provider Active Sta rt: April 29, 2025 Dr. Gustavo Avila MD Other Provider Active St art: April 29, 2025 Dr. Nagi Martin MD Other Provider Active S tart: April 29, 2025 Dr. Claudia Gomes MD Other Provider Active Start: April 29, 2025 Dr. Yang Rogers MD Other Provider Active Start : April 29, 2025 Dr. Heron Sosa MD Other Provider Active Start: April 29, 2025 Dr. Gaudencio Garrison MD Other Provider Active Start : April 29, 2025 Dr. Aurora Huerta MD Other Provider Active Star t: April 29, 2025 Dr. Koki Mcnulty MD Other Provider Active Sta rt: April 29, 2025 Dr. Mary Lang MD Other Provider Active Sta rt: April 29, 2025 Dr. Eric Stanford MD Other Provider Active Star t: April 29, 2025 Dr. Nitish Monsivais MD Other Provider Active St art: April 29, 2025 Dr. Franko Shaw MD Other Provider Active Star t: April 29, 2025 Dr. Mason Rodriguez DO Other Provider Active St art: April 29, 2025 Dr. Babak Kilpatrick MD Other Provider Active Start: April 29, 2025 Dr. Ten Turner MD Other Provider Active St art: April 29, 2025 Dr. Rich Hand DO Other Provider Active Start: April 29, 2025 Dr. Migel Akins MD Other Provider Active Star t: April 29, 2025 Dr. Roger Murphy MD Other Provider Active Sta rt: April 29, 2025 Team Status: Active Member Role Status Dates Ras Childress Primary Care Provider Active Sta rt: April 29, 2025 Dr. Sammy Guerrero DO Emergency Provider Active Start : April 29, 2025 Dr. Dayana Abel MD Admit Provider Active St art: April 29, 2025 Dr. Dayana Abel MD Other Provider Active St art: April 29, 2025 Dr. Ras Blas , Other Provider Active Star t: April 29, 2025 Dr. Reji Aguilar MD Other Provider Active Start: April 29, 2025 Dr. Darien Barry MD Other Provider Active Start: April 29, 2025 Dr. Oscar Parmar MD Other Provider Active Star t: April 29, 2025 Dr. Jae Wong DO Other Provider Active Start : April 29, 2025 Dr. Amado Cortez MD Other Provider Active Sta rt: April 29, 2025 Dr. Gustavo Avila MD Other Provider Active St art: April 29, 2025 Dr. Nagi Martin MD Other Provider Active S tart: April 29, 2025 Dr. Claudia Gomes MD Other Provider Active Start: April 29, 2025 Dr. Yang Rogers MD Other Provider Active Start : April 29, 2025 Dr. Heron Sosa MD Other Provider Active Start: April 29, 2025 Dr. Gaudencio Garrison MD Other Provider Active Start : April 29, 2025 Dr. Aurora Huerta MD Other Provider Active Star t: April 29, 2025 Dr. Koki Mcnulty MD Other Provider Active Sta rt: April 29, 2025 Dr. Mary Lang MD Other Provider Active Sta rt: April 29, 2025 Dr. Eric Stanford MD Other Provider Active Star t: April 29, 2025 Dr. Nitish Monsivais MD Other Provider Active St art: April 29, 2025 Dr. Franko Shaw MD Other Provider Active Star t: April 29, 2025 Dr. Mason Rodriguez DO Other Provider Active St art: April 29, 2025 Dr. Babak Kilpatrick MD Other Provider Active Start: April 29, 2025 Dr. Ten Turner MD Other Provider Active St art: April 29, 2025 Dr. Rich Hand DO Other Provider Active Start: April 29, 2025 Dr. Migel Akins MD Other Provider Active Star t: April 29, 2025 Dr. Roger Murphy MD Other Provider Active Sta rt: April 29, 2025 Dr. Jayden Still DO Attending Provider Active Start: April 29, 2025 Team Status: Active Member Role Status Dates Ras Childress Primary Care Provider Active Sta rt: April 29, 2025 Dr. Sammy Guerrero DO Emergency Provider Active Start : April 29, 2025 Dr. Dayana Abel MD Admit Provider Active St art: April 29, 2025 Dr. Dayana Abel MD Other Provider Active St art: April 29, 2025 Dr. Rsa Blas , Attending Provider Active Start: April 29, 2025 Dr. Ras Blas , Other Provider Active Star t: April 29, 2025 Dr. Reji Aguilar MD Other Provider Active Start: April 29, 2025 Dr. Darien Barry MD Other Provider Active Start: April 29, 2025 Dr. Oscar Parmar MD Other Provider Active Star t: April 29, 2025 Dr. Jae Wong DO Other Provider Active Start : April 29, 2025 Dr. Amado Cortez MD Other Provider Active Sta rt: April 29, 2025 Dr. Gustavo Avila MD Other Provider Active St art: April 29, 2025 Dr. Nagi Martin MD Other Provider Active S tart: April 29, 2025 Dr. Claudia Gomes MD Other Provider Active Start: April 29, 2025 Dr. Yang Rogers MD Other Provider Active Start : April 29, 2025 Dr. Heron Sosa MD Other Provider Active Start: April 29, 2025 Dr. Gaudencio Garrison MD Other Provider Active Start : April 29, 2025 Dr. Aurora Huerta MD Other Provider Active Star t: April 29, 2025 Dr. Koki cMnulty MD Other Provider Active Sta rt: April 29, 2025 Dr. Mary Lang MD Other Provider Active Sta rt: April 29, 2025 Dr. Eric Stanford MD Other Provider Active Star t: April 29, 2025 Dr. Nitish Monsivais MD Other Provider Active St art: April 29, 2025 Dr. Franko Shaw MD Other Provider Active Star t: April 29, 2025 Dr. Mason Rodriguez , Other Provider Active St art: April 29, 2025 Dr. Babak Kilpartick MD Other Provider Active Start: April 29, 2025 Dr. Ten Turner MD Other Provider Active St art: April 29, 2025 Dr. Rich Hand DO Other Provider Active Start: April 29, 2025 Dr. Migel Akins MD Other Provider Active Star t: April 29, 2025 Dr. Roger Murphy MD Other Provider Active Sta rt: April 29, 2025 Team Status: Active Member Role Status Dates Ras Childress Primary Care Provider Active Sta rt: April 30, 2025 Dr. Sammy Guerrero DO Emergency Provider Active Start : April 30, 2025 Dr. Dayana Abel MD Admit Provider Active St art: April 30, 2025 Dr. Dayana Abel MD Other Provider Active St art: April 30, 2025 Dr. Ras Blas DO Attending Provider Active Start: April 30, 2025 Dr. Ras Blas DO Other Provider Active Star t: April 30, 2025 Team Status: Active Member Role Status Dates Ras Childress Primary Care Provider Active Sta rt: April 30, 2025 Dr. Sammy Guerrero DO Emergency Provider Active Start : April 30, 2025 Dr. Dayana Abel MD Admit Provider Active St art: April 30, 2025 Dr. Dayana Abel MD Other Provider Active St art: April 30, 2025 Dr. Ras Blas DO Other Provider Active Star t: April 30, 2025 Dr. Jayden Still DO Attending Provider Active Start: April 30, 2025 Team Status: Active Member Role Status Dates Ras Childress Primary Care Provider Active Sta rt: May 01, 2025 Dr. Sammy Guerrero DO Emergency Provider Active Start : May 01, 2025 Dr. Dayana Abel MD Admit Provider Active St art: May 01, 2025 Dr. Dayana Abel MD Other Provider Active St art: May 01, 2025 Dr. Ras Blas DO Attending Provider Active Start: May 01, 2025 Dr. Ras Blas DO Other Provider Active Star t: May 01, 2025 Team Status: Active Member Role Status Dates Ras Childress Primary Care Provider Active Sta rt: May 01, 2025 Dr. Sammy Guerrero DO Emergency Provider Active Start : May 01, 2025 Dr. Dayana Abel MD Admit Provider Active St art: May 01, 2025 Dr. Dayana Abel MD Other Provider Active St art: May 01, 2025 Dr. Ras Blas DO Other Provider Active Star t: May 01, 2025 Dr. Jayden Still DO Attending Provider Active Start: May 01, 2025 Team Status: Active Member Role Status Dates Dr. Sammy Guerrero DO Emergency Provider Active Start : May 02, 2025 Dr. Dayana Abel MD Admit Provider Active St art: May 02, 2025 Dr. Dayana Abel MD Other Provider Active St art: May 02, 2025 Dr. Ras Blas DO Attending Provider Active Start: May 02, 2025 Dr. Ras Blas DO Other Provider Active Star t: May 02, 2025 Meena VIEIRA MD Primary Care Provider Active Start: May 02, 2025 Team Status: Active Member Role Status Dates Dr. Sammy Guerrero DO Emergency Provider Active Start : May 02, 2025 Dr. Dayana Abel MD Admit Provider Active St art: May 02, 2025 Dr. Dayana Abel MD Other Provider Active St art: May 02, 2025 Dr. Ras Blas DO Other Provider Active Star t: May 02, 2025 Meena VIEIRA MD Primary Care Provider Active Start: May 02, 2025 Dr. Jayden Still DO Attending Provider Active Start: May 02, 2025 Team Status: Active Member Role Status Dates Dr. Sammy Guerrero DO Emergency Provider Active Start : May 03, 2025 Dr. Dayana Abel MD Admit Provider Active St art: May 03, 2025 Dr. Dayana Abel MD Other Provider Active St art: May 03, 2025 Dr. Ras Blas DO Attending Provider Active Start: May 03, 2025 Dr. Ras Blas DO Other Provider Active Star t: May 03, 2025 Meena VIEIRA MD Primary Care Provider Active Start: May 03, 2025 Team Status: Active Member Role Status Dates Dr. Sammy Guerrero DO Emergency Provider Active Start : May 03, 2025 Dr. Dayana Abel MD Admit Provider Active St art: May 03, 2025 Dr. Dayana Abel MD Other Provider Active St art: May 03, 2025 Dr. Ras Blas DO Other Provider Active Star t: May 03, 2025 Meena VIEIRA MD Primary Care Provider Active Start: May 03, 2025 Dr. Jayden Still DO Attending Provider Active Start: May 03, 2025 Team Status: Inactive Member Role Status Dates Meena VIEIRA MD Primary Care Provider Active Start: May 08, 2025 End: May 08, 2025 Meena VIEIRA MD Referring Provider Active S tart: May 08, 2025 End: May 08, 2025 DAVIDSON Lomeli Attending Provider Active St art: May 08, 2025 End: May 08, 2025 Team Status: Active Member Role Status Dates Meena VIEIRA MD Primary Care Provider Active Start: May 08, 2025 DAVIDSON Lomeli Attending Provider Active St art: May 08, 2025 DAVIDSON Lomeli Referring Provider Active St art: May 08, 2025 Team Status: Inactive Member Role Status Dates Dr. Ras Levy DO Emergency Provider Active Start: May 08, 2025 End: May 08, 2025 Dr. Meena Guerra MD Primary Care Provider Active Start: May 08, 2025 End: May 08, 2025 Team Status: Active Member Role Status Dates Meena VIEIRA MD Primary Care Provider Active Job Spotter Relationship Specialty Start Date End Date Meena Guerra MD [address] [facility] [address] PCP - General Internal Medicine 11/29/16 Job Spotter Relationship Specialty Start Date End Date Meena Guerra MD [address] [facility] [place] [address] PCP - General Internal Medicine 11/29/16 Job Spotter Relationship Specialty Start Date End Date Meena Guerra MD [address] [facility] [place] [address] PCP - General Internal Medicine 11/29/16 Job Spotter Relationship Specialty Start Date End Date Meena Guerra MD [address] [facility] [place] [address] PCP - General Internal Medicine 11/29/16 Job Spotter Relationship Specialty Start Date End Date Meena Guerra MD [address] [facility] [place] [address] PCP - General Internal Medicine 11/29/16 Job Spotter Relationship Specialty Start Date End Date Meena Guerra MD [address] [facility] [place] [address] PCP - General Internal Medicine 11/29/16 Job Spotter Relationship Specialty Start Date End Date Meena Guerra MD [address] [facility] [place] [address] PCP - General Internal Medicine 11/29/16 Job Spotter Relationship Specialty Start Date End Date Meena Guerra MD [address] [facility] [place] [address] PCP - General Internal Medicine 07/31/20 Avinash Barbosa MD [address] [place] [facility] [place] [address] General Surgery 03/24/09 Roger Reynolds MD [address] [facility] [facility], [address] [place] [address] Surgeon Surgical Oncology 12/31/09 Job Spotter Relationship Specialty Start Date End Date Meena Guerra MD [address] [facility] [place] [address] PCP - General Internal Medicine 11/29/16 Job Spotter Relationship Specialty Start Date End Date Meena Guerra MD [address] [facility] [place] [address] PCP - General Internal Medicine 11/29/16 Job Spotter Relationship Specialty Start Date End Date Meena Guerra MD [address] [facility] [place] [address] PCP - General Internal Medicine 11/29/16 Job Spotter Relationship Specialty Start Date End Date Meena Guerra MD [address] [facility] [place] [address] PCP - General Internal Medicine 11/29/16 Job Spotter Relationship Specialty Start Date End Date Meena Guerra MD [address] [place] [address] PCP - General Internal Medicine 07/31/20 Avinash Barbosa MD [address] [place] [facility] [place] [address] General Surgery 03/24/09 Roger Reynolds MD [address], [address] [place] [address] Surgeon Surgical Oncology 12/31/09 Job Spotter Relationship Specialty Start Date End Date Meena Guerra MD [address] [facility] [place] [address] PCP - General Internal Medicine 11/29/16 Job Spotter Relationship Specialty Start Date End Date Meena Guerra MD [address] [facility] [place] [address] PCP - General Internal Medicine 11/29/16 Job Spotter Relationship Specialty Start Date End Date Meena Guerra MD [address] [facility] [place] [address] PCP - General Internal Medicine 11/29/16 Job Spotter Relationship Specialty Start Date End Date Meena Guerra MD [address] [facility] [place] [address] PCP - General Internal Medicine 07/31/20 Avinash Barbosa MD [address] [place] [address] General Surgery 03/24/09 Roger Reynolds MD [address], [address] [place] [address] Surgeon Surgical Oncology 12/31/09 Job Spotter Relationship Specialty Start Date End Date Meena Guerra MD [address] [facility] [place] [address] PCP - General Internal Medicine 07/31/20 Avinash Barbosa MD [address] [place] [facility] [place] [address] General Surgery 03/24/09 Roger Reynolds MD [address], [address] [place] [address] Surgeon Surgical Oncology 12/31/09 Job Spotter Relationship Specialty Start Date End Date Meena Guerra MD [address] [place] [address] PCP - General Internal Medicine 11/29/16 Job Spotter Relationship Specialty Start Date End Date Meena Guerra MD [address] [place] [address] PCP - General Internal Medicine 11/29/16 Job Spotter Relationship Specialty Start Date End Date Meena Guerra MD [address] [place] [address] PCP - General Internal Medicine 11/29/16 Job Spotter Relationship Specialty Start Date End Date Meena Guerra MD [address] [place] [address] PCP - General Internal Medicine 11/29/16 Job Spotter Relationship Specialty Start Date End Date Meena Guerra MD [address] [facility] [place] [address] PCP - General Internal Medicine 11/29/16 Job Spotter Relationship Specialty Start Date End Date Meena Guerra MD [address] [facility] [place] [address] PCP - General Internal Medicine 11/29/16 Job Spotter Relationship Specialty Start Date End Date Meena Guerra MD [address] [facility] [place] [address] PCP - General Internal Medicine 11/29/16 Job Spotter Relationship Specialty Start Date End Date Meena Guerra MD [address] [facility] [place] [address] PCP - General Internal Medicine 11/29/16 Job Spotter Relationship Specialty Start Date End Date Meena Guerra MD [address] [facility] [address] PCP - General Internal Medicine 11/29/16 Job Spotter Relationship Specialty Start Date End Date Meena Guerra MD [address] [facility] [address] PCP - General Internal Medicine 11/29/16 Job Spotter Relationship Specialty Start Date End Date Meena Guerra MD [address] [facility] [address] PCP - General Internal Medicine 11/29/16 Job Spotter Relationship Specialty Start Date End Date Meena Guerra MD [address] [facility] [place] [address] PCP - General Internal Medicine 11/29/16 Job Spotter Relationship Specialty Start Date End Date Meena Guerra MD [address] [place] [address] PCP - General Internal Medicine 11/29/16 Job Spotter Relationship Specialty Start Date End Date Meena Guerra MD [address] [place] [address] PCP - General Internal Medicine 11/29/16 Job Spotter Relationship Specialty Start Date End Date Meena Guerra MD [address] [place] [address] PCP - General Internal Medicine 07/31/20 Avinash Barbosa MD [address] [place] [address] General Surgery 03/24/09 Roger Reynolds MD [address] [facility] 3rd Floor, [address] [place] [address] Surgeon Surgical Oncology 12/31/09 Job Spotter Relationship Specialty Start Date End Date Meena Guerra MD [address] [place] [address] PCP - General Internal Medicine 07/31/20 Avinash Barbosa MD [address] [place] [address] General Surgery 03/24/09 Roger Reynolds MD [address], [address] [place] [address] Surgeon Surgical Oncology 12/31/09 Job Spotter Relationship Specialty Start Date End Date Meena Guerra MD [address] [place] [address] PCP - General Internal Medicine 07/31/20 Avinash Barbosa MD [address] [place] [address] General Surgery 03/24/09 Roger Reynolds MD [address] [facility] 3rd Floor, [address] [place] [address] Surgeon Surgical Oncology 12/31/09 Job Spotter Relationship Specialty Start Date End Date Meena Guerra MD [address] [place] [address] PCP - General Internal Medicine 11/29/16 Job Spotter Relationship Specialty Start Date End Date Meena Guerra MD [address] [place] [address] PCP - General Internal Medicine 07/31/20 Avinash Barbosa MD [address] [place] [address] General Surgery 03/24/09 Roger Reynolds MD [address] [facility] 3rd Floor, [address] [place] [address] Surgeon Surgical Oncology 12/31/09 Job Spotter Relationship Specialty Start Date End Date Meena Guerra MD [address] [place] [address] PCP - General Internal Medicine 11/29/16 Job Spotter Relationship Specialty Start Date End Date Meena Guerra MD [address] [place] [address] PCP - General Internal Medicine 11/29/16 Job Spotter Relationship Specialty Start Date End Date Meena Guerra MD [address] [place] [address] PCP - General Internal Medicine 07/31/20 Avinash Barbosa MD [address] [place] [address] General Surgery 03/24/09 Roger Reynolds MD [address], [address] [place] [address] Surgeon Surgical Oncology 12/31/09 Job Spotter Relationship Specialty Start Date End Date Meena Guerra MD [address] [place], [place] [address] [phone] PCP - General Internal Medicine 07/31/20 Avinash Barbosa MD [address] [place] [address] General Surgery 03/24/09 Roger Reynolds MD [address], [address] [place] [address] Surgeon Surgical Oncology 12/31/09 Job Spotter Relationship Specialty Start Date End Date Meena Guerra MD [address] [place] [address] PCP - General Internal Medicine 11/29/16 Rosemarie Taylor PA-C [address] [place] [address] Grain Trader Family Medicine 10/28/24 Jose Arreola APRN.MENTAL HEALTH CASE MANAGER [address] [place] [address] Grain Trader Internal Medicine 10/28/24 Lindsey Camara PA-C [address] [place] [address] [facility] Job Spotter Relationship Specialty Start Date End Date Meena Guerra MD [address] [place] [address] PCP - General Internal Medicine 11/29/16 Rosemarie Taylor PA-C [address] [place] [address] Grain Trader Family Medicine 10/28/24 Jose Arreola, ANCIENT ART CURATOR.MENTAL HEALTH CASE MANAGER [address] [place] [address] Grain Trader Internal Medicine 10/28/24 Lindsey Camara PA-C [address] [facility] [place] [address] Grain Trader Family Medicine 10/28/24 Job Spotter Relationship Specialty Start Date End Date Meena Guerra MD [address] [place] [address] PCP - General Internal Medicine 11/29/16 Rosemarie Taylor PA-C [address] [place] [address] Grain Trader Family Medicine 10/28/24 Jose Arreola APRN.MENTAL HEALTH CASE MANAGER [address] [place] [address] Grain Trader Internal Medicine 10/28/24 Lindsey Camara PA-C [address] [place] [address] Grain Trader Family Medicine 10/28/24 Job Spotter Relationship Specialty Start Date End Date Meena Guerra MD [address] [place] [address] PCP - General Internal Medicine 11/29/16 Rosemarie Taylor PA-C [address] [place] [address] Grain Trader Family Medicine 10/28/24 Jose Arreola APRN.MENTAL HEALTH CASE MANAGER [address] [place] [address] Grain Trader Internal Medicine 10/28/24 Lindsey Camara PA-C [address] [place] [address] [facility] 10/28/24 Job Spotter Relationship Specialty Start Date End Date Meena Guerra MD [address] [place] [address] PCP - General Internal Medicine 11/29/16 Rosemarie Taylor PA-C [address] [place] [address] [facility] Family Medicine 10/28/24 Jose Arreola APRN.MENTAL HEALTH CASE MANAGER [address] [place], [place] [address] [facility] Internal Medicine 10/28/24 Lindsey Camara PA-C [address] [place] [address] [facility] 10/28/24 Team Status: Active Member Role Status Dates Dr. Meena Guerra MD Primary Care Provider Active Start: January 31, 2025 DAVIDSON Lomeli Attending Provider Active St art: January 31, 2025 DAVIDSON Lomeli Referring Provider Active St art: January 31, 2025 Job Spotter Relationship Specialty Start Date End Date Meena Guerra MD [address] [place] [address] PCP - General Internal Medicine 11/29/16 Jose Arreola APRN.MENTAL HEALTH CASE MANAGER [address] [place] [address] [facility] Internal Medicine 10/28/24 Job Spotter Relationship Specialty Start Date End Date Meena Guerra MD [address] [place] [address] PCP - General Internal Medicine 11/29/16 Jose Arreola APRN.MENTAL HEALTH CASE MANAGER [address] [place] [address] [facility] Internal Medicine 10/28/24 Job Spotter Relationship Specialty Start Date End Date Meena Guerra MD [address] [place] [address] PCP - General Internal Medicine 11/29/16 Jose Arreola APRN.MENTAL HEALTH CASE MANAGER [address] [place] [address] Grain Trader Internal Medicine 10/28/24 Job Spotter Relationship Specialty Start Date End Date Meena Guerra MD [address] [place] [address] PCP - General Internal Medicine 11/29/16 Jose Arreola APRN.MENTAL HEALTH CASE MANAGER [address] [place] [address] Grain Trader Internal Medicine 10/28/24 Team Status: Active Member Role Status Dates Dr. Meena Guerra MD Primary Care Provider Active Start: April 16, 2025 Dr. Nathan Castanon , DO Emergency Provider Activ e Start: April 16, 2025 Dr. Ras Blas , Admit Provider Active Star t: April 16, 2025 Dr. Ras Blas , DO Attending Provider Active Start: April 16, 2025 Dr. Ras Blas , Referring Provider Active Start: April 16, 2025 Job Spotter Relationship Specialty Start Date End Date Meena Guerra MD [address] [place] [address] PCP - General Internal Medicine 11/29/16 Jose Arreola APRN.MENTAL HEALTH CASE MANAGER [address] [place] [address] Grain Trader Internal Medicine 10/28/24 Job Spotter Relationship Specialty Start Date End Date Meena Guerra MD [address] [place] [address] PCP - General Internal Medicine 11/29/16 Jose Arreola APRN.MENTAL HEALTH CASE MANAGER [address] [place] [address] Grain Trader Internal Medicine 10/28/24 Team Status: Active Member Role Status Dates Ras Childress Primary Care Provider Active Team Status: Active Member Role Status Dates Dr. Nathan Castanon DO Emergency Provider Activ e Start: April 21, 2025 Dr. Ras Blas DO Admit Provider Active Star t: April 21, 2025 Dr. Ras Blas DO Referring Provider Active Start: April 21, 2025 Dr. Ras Blas DO Other Provider Active Star t: April 21, 2025 Dr. Amado Bailey MD Attending Provider Active Start: April 21, 2025 Dr. Amado Bailey MD Other Provider Active Star t: April 21, 2025 Ras Childress Primary Care Provider Active Sta rt: April 21, 2025 Dr. Edward Le MD Other Provider Active Star t: April 21, 2025 Dr. Melissa Garcia MD Other Provider Active Start: April 21, 2025 Dr. Aubrey De Luna MD Other Provider Active St art: April 21, 2025 Team Status: Active Member Role Status Dates Dr. Nathan Castanon DO Emergency Provider Activ e Start: April 22, 2025 Dr. Ras Blas DO Admit Provider Active Star t: April 22, 2025 Dr. Ras Blas DO Referring Provider Active Start: April 22, 2025 Dr. Ras Blas DO Other Provider Active Star t: April 22, 2025 Dr. Amado Bailey MD Attending Provider Active Start: April 22, 2025 Dr. Amado Bailey MD Other Provider Active Star t: April 22, 2025 Ras Childress Primary Care Provider Active Sta rt: April 22, 2025 Dr. Edward Le MD Other Provider Active Star t: April 22, 2025 Dr. Melissa Garcia MD Other Provider Active Start: April 22, 2025 Dr. Aubrey De Luna MD Other Provider Active St art: April 22, 2025 Team Status: Active Member Role Status Dates Dr. Nathan Castanon DO Emergency Provider Activ e Start: April 23, 2025 Dr. Ras Blas DO Admit Provider Active Star t: April 23, 2025 Dr. Ras Blas DO Referring Provider Active Start: April 23, 2025 Dr. Ras Blas DO Other Provider Active Star t: April 23, 2025 Dr. Amado Bailey MD Attending Provider Active Start: April 23, 2025 Dr. Amado Bailey MD Other Provider Active Star t: April 23, 2025 Ras Childress Primary Care Provider Active Sta rt: April 23, 2025 Dr. Edward Le MD Other Provider Active Star t: April 23, 2025 Dr. Melissa Garcia MD Other Provider Active Start: April 23, 2025 Dr. Aubrey De Luna MD Other Provider Active St art: April 23, 2025 Dr. Koki Mcnulty MD Other Provider Active Sta rt: April 23, 2025 Dr. Migel Akins MD Other Provider Active Star t: April 23, 2025 Dr. Oscar Parmar MD Other Provider Active Star t: April 23, 2025 Dr. Nagi Martin MD Other Provider Active S tart: April 23, 2025 Dr. Jae Wong , Other Provider Active Start : April 23, 2025 Dr. Yang Rogers MD Other Provider Active Start : April 23, 2025 Dr. Mason Rodriguez , Other Provider Active St art: April 23, 2025 Dr. Franko Shaw MD Other Provider Active Star t: April 23, 2025 Dr. Rich Hand DO Other Provider Active Start: April 23, 2025 Dr. Aurora Huerta MD Other Provider Active Star t: April 23, 2025 Dr. Reji Aguilar MD Other Provider Active Start: April 23, 2025 Dr. Eric Stanford MD Other Provider Active Star t: April 23, 2025 Dr. Babak Kilpatrick MD Other Provider Active Start: April 23, 2025 Dr. Ten Turner MD Other Provider Active St art: April 23, 2025 Dr. Claudia Gomes MD Other Provider Active Start: April 23, 2025 Dr. Roger Murphy MD Other Provider Active Sta rt: April 23, 2025 Dr. Nitish Monsivais MD Other Provider Active St art: April 23, 2025 Dr. Mary Lang MD Other Provider Active Sta rt: April 23, 2025 Dr. Gustavo Avila MD Other Provider Active St art: April 23, 2025 Dr. Darien Barry MD Other Provider Active Start: April 23, 2025 Dr. Amado Cortez MD Other Provider Active Sta rt: April 23, 2025 Dr. Heron Sosa MD Other Provider Active Start: April 23, 2025 Dr. Gaudencio Garrison MD Other Provider Active Start : April 23, 2025 Dr. Kayla Fields MD Other Provider Active St art: April 23, 2025 Team Status: Active Member Role Status Dates Dr. Nathan Castanon DO Emergency Provider Activ e Start: April 24, 2025 Dr. Ras Blas DO Admit Provider Active Star t: April 24, 2025 Dr. Ras Blas DO Referring Provider Active Start: April 24, 2025 Dr. Ras Blas DO Other Provider Active Star t: April 24, 2025 Dr. Amado Bailey MD Attending Provider Active Start: April 24, 2025 Dr. Amado Bailey MD Other Provider Active Star t: April 24, 2025 Ras Childress Primary Care Provider Active Sta rt: April 24, 2025 Dr. Edward Le MD Other Provider Active Star t: April 24, 2025 Dr. Melissa Garcia MD Other Provider Active Start: April 24, 2025 Dr. Aubrey De Luna MD Other Provider Active St art: April 24, 2025 Dr. Koki Mcnulty MD Other Provider Active Sta rt: April 24, 2025 Dr. Migel Akins MD Other Provider Active Star t: April 24, 2025 Dr. Oscar Parmar MD Other Provider Active Star t: April 24, 2025 Dr. Nagi Martin MD Other Provider Active S tart: April 24, 2025 Dr. Jae Wong DO Other Provider Active Start : April 24, 2025 Dr. Yang Rogers MD Other Provider Active Start : April 24, 2025 Dr. Mason Rodriguez DO Other Provider Active St art: April 24, 2025 Dr. Franko Shaw MD Other Provider Active Star t: April 24, 2025 Dr. Rich Hand DO Other Provider Active Start: April 24, 2025 Dr. Aurora Huerta MD Other Provider Active Star t: April 24, 2025 Dr. Reji Aguilar MD Other Provider Active Start: April 24, 2025 Dr. Eric Stanford MD Other Provider Active Star t: April 24, 2025 Dr. Bbaak Kilpatrick MD Other Provider Active Start: April 24, 2025 Dr. Ten Turner MD Other Provider Active St art: April 24, 2025 Dr. Claudia Gomes MD Other Provider Active Start: April 24, 2025 Dr. Roger Murphy MD Other Provider Active Sta rt: April 24, 2025 Dr. Nitish Monsivais MD Other Provider Active St art: April 24, 2025 Dr. Mary Lang MD Other Provider Active Sta rt: April 24, 2025 Dr. Gustavo Avila MD Other Provider Active St art: April 24, 2025 Dr. Darien Barry MD Other Provider Active Start: April 24, 2025 Dr. Amado Cortez MD Other Provider Active Sta rt: April 24, 2025 Dr. Heron Sosa MD Other Provider Active Start: April 24, 2025 Dr. Gaudencio Garrison MD Other Provider Active Start : April 24, 2025 Dr. Kayla Fields MD Other Provider Active St art: April 24, 2025 Team Status: Active Member Role Status Dates Dr. Nathan Castanon DO Emergency Provider Activ e Start: April 25, 2025 Dr. Ras Blas DO Admit Provider Active Star t: April 25, 2025 Dr. Ras Blas DO Referring Provider Active Start: April 25, 2025 Dr. Ras Blas DO Other Provider Active Star t: April 25, 2025 Dr. Amado Bailey MD Attending Provider Active Start: April 25, 2025 Dr. Amado Bailey MD Other Provider Active Star t: April 25, 2025 Ras Childress Primary Care Provider Active Sta rt: April 25, 2025 Dr. Koki Mcnulty MD Other Provider Active Sta rt: April 25, 2025 Dr. Migel Akins MD Other Provider Active Star t: April 25, 2025 Dr. Oscar Parmar MD Other Provider Active Star t: April 25, 2025 Dr. Nagi Martin MD Other Provider Active S tart: April 25, 2025 Dr. Jae Wong , Other Provider Active Start : April 25, 2025 Dr. Yang Rogers MD Other Provider Active Start : April 25, 2025 Dr. Mason Rodriguez , Other Provider Active St art: April 25, 2025 Dr. Franko Shaw MD Other Provider Active Star t: April 25, 2025 Dr. Rich Hand , Other Provider Active Start: April 25, 2025 Dr. Aurora Huerta MD Other Provider Active Star t: April 25, 2025 Dr. Reji Aguilar MD Other Provider Active Start: April 25, 2025 Dr. Eric Stanford MD Other Provider Active Star t: April 25, 2025 Dr. Babak Kilpatrick MD Other Provider Active Start: April 25, 2025 Dr. Ten Turner MD Other Provider Active St art: April 25, 2025 Dr. Claudia Gomes MD Other Provider Active Start: April 25, 2025 Dr. Roger Murphy MD Other Provider Active Sta rt: April 25, 2025 Dr. Nitish Monsivais MD Other Provider Active St art: April 25, 2025 Dr. Mary Lang MD Other Provider Active Sta rt: April 25, 2025 Dr. Gustavo Avila MD Other Provider Active St art: April 25, 2025 Dr. Darien Barry MD Other Provider Active Start: April 25, 2025 Dr. Amado Cortez MD Other Provider Active Sta rt: April 25, 2025 Dr. Heron Sosa MD Other Provider Active Start: April 25, 2025 Dr. Gaudencio Garrison MD Other Provider Active Start : April 25, 2025 Dr. Edward Le MD Other Provider Active Star t: April 25, 2025 Dr. Kayla Fields MD Other Provider Active St art: April 25, 2025 Dr. Aubrey De Luna MD Other Provider Active St art: April 25, 2025 Dr. Melissa Garcia MD Other Provider Active Start: April 25, 2025 Team Status: Active Member Role Status Dates Dr. Nathan Castanon DO Emergency Provider Activ e Start: April 26, 2025 Dr. Ras Blas DO Admit Provider Active Star t: April 26, 2025 Dr. Ras Blas DO Referring Provider Active Start: April 26, 2025 Dr. Ras Blas DO Other Provider Active Star t: April 26, 2025 Dr. Amado Bailey MD Attending Provider Active Start: April 26, 2025 Dr. Amado Bailey MD Other Provider Active Star t: April 26, 2025 Ras Childress Primary Care Provider Active Sta rt: April 26, 2025 Dr. Koki Mcnulty MD Other Provider Active Sta rt: April 26, 2025 Dr. Migel Akins MD Other Provider Active Star t: April 26, 2025 Dr. Oscar Parmar MD Other Provider Active Star t: April 26, 2025 Dr. Nagi Martin MD Other Provider Active S tart: April 26, 2025 Dr. Jae Wong DO Other Provider Active Start : April 26, 2025 Dr. Yang Rogers MD Other Provider Active Start : April 26, 2025 Dr. Mason Rodriguez DO Other Provider Active St art: April 26, 2025 Dr. Franko Shaw MD Other Provider Active Star t: April 26, 2025 Dr. Rich Hand DO Other Provider Active Start: April 26, 2025 Dr. Aurora Huerta MD Other Provider Active Star t: April 26, 2025 Dr. Reji Aguilar MD Other Provider Active Start: April 26, 2025 Dr. Eric Stanford MD Other Provider Active Star t: April 26, 2025 Dr. Babak Kilpatrick MD Other Provider Active Start: April 26, 2025 Dr. Ten Turner MD Other Provider Active St art: April 26, 2025 Dr. Claudia Gomes MD Other Provider Active Start: April 26, 2025 Dr. Roger Murphy MD Other Provider Active Sta rt: April 26, 2025 Dr. Nitish Monsivais MD Other Provider Active St art: April 26, 2025 Dr. Mary Lang MD Other Provider Active Sta rt: April 26, 2025 Dr. Gustavo Avila MD Other Provider Active St art: April 26, 2025 Dr. Dari[place] Barry MD Other Provider Active Start: April 26, 2025 Dr. Amado Cortez MD Other Provider Active Sta rt: April 26, 2025 Dr. Heron Sosa MD Other Provider Active Start: April 26, 2025 Dr. Gaudencio Garrison MD Other Provider Active Start : April 26, 2025 Dr. Edward Le MD Other Provider Active Star t: April 26, 2025 Dr. Kayla Fields MD Other Provider Active St art: April 26, 2025 Dr. Aubrey De Luna MD Other Provider Active St art: April 26, 2025 Dr. Melissa Garcia MD Other Provider Active Start: April 26, 2025 Job Spotter Relationship Specialty Start Date End Date Meena Guerra MD [address] [place], [place] [address] PCP - General Internal Medicine 11/29/16 Jose Arreola APRN.MENTAL HEALTH CASE MANAGER [address] [place], [place] [address] [facility] Internal Medicine 10/28/24 Team Status: Active Member Role Status Dates Ras Childress Primary Care Provider Active Sta rt: April 27, 2025 Dr. Sammy Guerrero DO Emergency Provider Active Start : April 27, 2025 Dr. Dayana Abel MD Admit Provider Active St art: April 27, 2025 Dr. Dayana Abel MD Attending Provider Active Start: April 27, 2025 Job Spotter Relationship Specialty Start Date End Date Meena Guerra MD [address] [place], [place] [address] PCP - General Internal Medicine 11/29/16 Jose Arreola APRN.MENTAL HEALTH CASE MANAGER [address] [place], [place] [id number] [facility] Internal Medicine 10/28/24 Stacey Lopez, BASIL [address] [place] [address] Primary Care Collection Systems Worker Internal Medicine 04/29/25 Job Spotter Relationship Specialty Start Date End Date Meena Guerra MD [address] [facility] [place] [address] PCP - General Internal Medicine 11/29/16 Jose Arreola APRN.MENTAL HEALTH CASE MANAGER [address] [facility] [place] [address] Grain Trader Internal Medicine 10/28/24 Stacey Lopez, BASIL [address] [place] [address] Primary Care Collection Systems Worker Internal Medicine 04/29/25 Job Spotter Relationship Specialty Start Date End Date Meena Guerra MD [address] [facility] [place] [address] PCP - General Internal Medicine 11/29/16 Jose Arreola APRN.MENTAL HEALTH CASE MANAGER [address] [facility] [place] [place] [address] Grain Trader Internal Medicine 10/28/24 Stacey Lopez RN [address] [place] [address] Primary Care Collection Systems Worker Internal Medicine 05/06/25 Job Spotter Relationship Specialty Start Date End Date Meena Guerra MD [address] [facility] [place] [address] PCP - General Internal Medicine 11/29/16 Jose Arreola APRN.MENTAL HEALTH CASE MANAGER [address] [facility] [place] [address] Grain Trader Internal Medicine 10/28/24 Stacey Lopez RN [address] [place] [address] Primary Care Collection Systems Worker Internal Medicine 05/06/25 Job Spotter Relationship Specialty Start Date End Date Meena Guerra MD [address] [facility] [place] [address] PCP - General Internal Medicine 11/29/16 Jose Arreola APRN.MENTAL HEALTH CASE MANAGER [address] [facility] [place] [address] Grain Trader Internal Medicine 10/28/24 Stacey Lopez, BASIL [address] [place], [place] [id number] Primary Care Collection Systems Worker Internal Medicine 05/06/25 Job Spotter Relationship Specialty Start Date End Date Meena Guerra MD [address] [place] [address] PCP - General Internal Medicine 11/29/16 Jose Arreola APRN.MENTAL HEALTH CASE MANAGER [address] [place] [address] Grain Trader Internal Medicine 10/28/24 Stacey Lopez RN [address] [place] [address] Primary Care Collection Systems Worker Internal Medicine 05/06/25 Job Spotter Relationship Specialty Start Date End Date Meena Guerra MD [address] [place] [address] PCP - General Internal Medicine 11/29/16 Jose Arreola APRN.MENTAL HEALTH CASE MANAGER [address] [facility] [place] [place] [address] Grain Trader Internal Medicine 10/28/24 tSacey Lopez, BASIL [address] [place] [address] Primary Care Collection Systems Worker Internal Medicine 05/06/25 Team Status: Active Member Role Status Dates Ras Childress Primary Care Provider Active Sta rt: April 27, 2025 Dr. Sammy Guerrero DO Emergency Provider Active Start : April 27, 2025 Dr. Dayana Abel MD Admit Provider Active St art: April 27, 2025 Dr. Dayana Abel MD Referring Provider Active Start: April 27, 2025 Dr. Dayana Abel MD Other Provider Active St art: April 27, 2025 Dr. Ras Blas , Other Provider Active Star t: April 27, 2025 Dr. Reji Aguilar MD Other Provider Active Start: April 27, 2025 Dr. Dari[place] Barry MD Other Provider Active Start: April 27, 2025 Dr. Oscar Parmar MD Other Provider Active Star t: April 27, 2025 Dr. Jae Wong , Other Provider Active Start : April 27, 2025 Dr. Amado Cortez MD Other Provider Active Sta rt: April 27, 2025 Dr. Gustavo Avila MD Other Provider Active St art: April 27, 2025 Dr. Nagi Martin MD Other Provider Active S tart: April 27, 2025 Dr. Claudia Gomes MD Other Provider Active Start: April 27, 2025 Dr. Yang Rogers MD Other Provider Active Start : April 27, 2025 Dr. Heron Sosa MD Other Provider Active Start: April 27, 2025 Dr. Gaudencio Garrison MD Other Provider Active Start : April 27, 2025 Dr. Aurora Huerta MD Other Provider Active Star t: April 27, 2025 Dr. Koki Mcnulty MD Other Provider Active Sta rt: April 27, 2025 Dr. Mary Lang MD Other Provider Active Sta rt: April 27, 2025 Dr. Eric Stanford MD Other Provider Active Star t: April 27, 2025 Dr. Nitish Monsivais MD Other Provider Active St art: April 27, 2025 Dr. Franko Shaw MD Other Provider Active Star t: April 27, 2025 Dr. Mason Rodriguez , Other Provider Active St art: April 27, 2025 Dr. Babak Kilpatrick MD Other Provider Active Start: April 27, 2025 Dr. Ten Turner MD Other Provider Active St art: April 27, 2025 Dr. Rich Hand , Other Provider Active Start: April 27, 2025 Dr. Migel Akins MD Other Provider Active Star t: April 27, 2025 Dr. Roger Murphy MD Other Provider Active Sta rt: April 27, 2025 Dr. Jayden Still DO Attending Provider Active Start: April 27, 2025 Team Status: Active Member Role Status Dates Ras Childress Primary Care Provider Active Sta rt: April 29, 2025 Dr. Sammy Guerrero DO Emergency Provider Active Start : April 29, 2025 Dr. Dayana Abel MD Admit Provider Active St art: April 29, 2025 Dr. Dayana Abel MD Other Provider Active St art: April 29, 2025 Dr. Ras Blas DO Referring Provider Active Start: April 29, 2025 Dr. Ras Blas DO Other Provider Active Star t: April 29, 2025 Dr. Reji Aguilar MD Other Provider Active Start: April 29, 2025 Dr. Darien Barry MD Other Provider Active Start: April 29, 2025 Dr. Oscar Parmar MD Other Provider Active Star t: April 29, 2025 Dr. Jae Wong DO Attending Provider Active S tart: April 29, 2025 Dr. Jae Wong DO Other Provider Active Start : April 29, 2025 Dr. Amado Cortez MD Other Provider Active Sta rt: April 29, 2025 Dr. Gustavo Avila MD Other Provider Active St art: April 29, 2025 Dr. Nagi Martni MD Other Provider Active S tart: April 29, 2025 Dr. Claudia Gomes MD Other Provider Active Start: April 29, 2025 Dr. Yang Rogers MD Other Provider Active Start : April 29, 2025 Dr. Heron Sosa MD Other Provider Active Start: April 29, 2025 Dr. Gaudencio Garrison MD Other Provider Active Start : April 29, 2025 Dr. Aurora Huerta MD Other Provider Active Star t: April 29, 2025 Dr. Koki Mcnulty MD Other Provider Active Sta rt: April 29, 2025 Dr. Mary Lang MD Other Provider Active Sta rt: April 29, 2025 Dr. Eric Stanford MD Other Provider Active Star t: April 29, 2025 Dr. Nitish Monsivais MD Other Provider Active St art: April 29, 2025 Dr. Franko Shaw MD Other Provider Active Star t: April 29, 2025 Dr. Mason Rodriguez DO Other Provider Active St art: April 29, 2025 Dr. Babak Kilpatrick MD Other Provider Active Start: April 29, 2025 Dr. Ten Turner MD Other Provider Active St art: April 29, 2025 Dr. Rich Hand DO Other Provider Active Start: April 29, 2025 Dr. Migel Akins MD Other Provider Active Star t: April 29, 2025 Dr. Roger Murphy MD Other Provider Active Sta rt: April 29, 2025 Team Status: Active Member Role Status Dates Ras Childress Primary Care Provider Active Sta rt: April 29, 2025 Dr. Sammy Guerrero DO Emergency Provider Active Start : April 29, 2025 Dr. Dayana Abel MD Admit Provider Active St art: April 29, 2025 Dr. Dayana Abel MD Other Provider Active St art: April 29, 2025 Dr. Ras Blas DO Referring Provider Active Start: April 29, 2025 Dr. Ras Blas DO Other Provider Active Star t: April 29, 2025 Dr. Reji Aguilar MD Other Provider Active Start: April 29, 2025 Dr. Darien Barry MD Other Provider Active Start: April 29, 2025 Dr. Oscar Parmar MD Other Provider Active Star t: April 29, 2025 Dr. Jae Wong DO Other Provider Active Start : April 29, 2025 Dr. Amado Cortez MD Other Provider Active Sta rt: April 29, 2025 Dr. Gustavo Avila MD Other Provider Active St art: April 29, 2025 Dr. Nagi Martin MD Other Provider Active S tart: April 29, 2025 Dr. Claudia Gomes MD Other Provider Active Start: April 29, 2025 Dr. Yang Rogers MD Other Provider Active Start : April 29, 2025 Dr. Heron Sosa MD Other Provider Active Start: April 29, 2025 Dr. Gaudencio Garrison MD Other Provider Active Start : April 29, 2025 Dr. Aurora Huerta MD Other Provider Active Star t: April 29, 2025 Dr. Koki Mcnulty MD Other Provider Active Sta rt: April 29, 2025 Dr. Mary Lang MD Other Provider Active Sta rt: April 29, 2025 Dr. Eric Stanford MD Other Provider Active Star t: April 29, 2025 Dr. Nitish Monsivais MD Other Provider Active St art: April 29, 2025 Dr. Franko Shaw MD Other Provider Active Star t: April 29, 2025 Dr. Mason Rodriguez DO Other Provider Active St art: April 29, 2025 Dr. Babak Kilpatrick MD Other Provider Active Start: April 29, 2025 Dr. Ten Turner MD Other Provider Active St art: April 29, 2025 Dr. Rich Hand DO Other Provider Active Start: April 29, 2025 Dr. Migel Akins MD Other Provider Active Star t: April 29, 2025 Dr. Roger Murphy MD Other Provider Active Sta rt: April 29, 2025 Dr. Jayden Still DO Attending Provider Active Start: April 29, 2025 Team Status: Active Member Role Status Dates Ras Childress Primary Care Provider Active Sta rt: April 30, 2025 Dr. Sammy Guerrero DO Emergency Provider Active Start : April 30, 2025 Dr. Dayaan Abel MD Admit Provider Active St art: April 30, 2025 Dr. Dayana Abel MD Other Provider Active St art: April 30, 2025 Dr. Ras Blas DO Referring Provider Active Start: April 30, 2025 Dr. Ras Blas DO Other Provider Active Star t: April 30, 2025 Dr. Jayden Still DO Attending Provider Active Start: April 30, 2025 Team Status: Active Member Role Status Dates Ras Childress Primary Care Provider Active Sta rt: May 01, 2025 Dr. Sammy Guerrero DO Emergency Provider Active Start : May 01, 2025 Dr. Dayana Abel MD Admit Provider Active St art: May 01, 2025 Dr. Dayana Abel MD Other Provider Active St art: May 01, 2025 Dr. Ras Blas DO Referring Provider Active Start: May 01, 2025 Dr. Ras Blas DO Other Provider Active Star t: May 01, 2025 Dr. Jayden Still DO Attending Provider Active Start: May 01, 2025 Team Status: Active Member Role Status Dates Dr. Sammy Guerrero DO Emergency Provider Active Start : May 02, 2025 Dr. Dayana Abel MD Admit Provider Active St art: May 02, 2025 Dr. Dayana Abel MD Other Provider Active St art: May 02, 2025 Dr. Ras Blas DO Referring Provider Active Start: May 02, 2025 Dr. Ras Blas DO Other Provider Active Star t: May 02, 2025 Meena VIEIRA MD Primary Care Provider Active Start: May 02, 2025 Dr. Jayden Still DO Attending Provider Active Start: May 02, 2025 Team Status: Inactive Member Role Status Dates Meena VIEIRA MD Primary Care Provider Active Start: May 08, 2025 End: May 08, 2025 DAVIDSON Lomeli Attending Provider Active St art: May 08, 2025 End: May 08, 2025 DAVIDSON Lomeli Referring Provider Active St art: May 08, 2025 End: May 08, 2025 Team Status: Inactive Member Role Status Dates Dr. Ras Levy DO Attending Provider Active Start: May 08, 2025 End: May 08, 2025 Dr. Ras Levy DO Emergency Provider Active Start: May 08, 2025 End: May 08, 2025 Dr. Meena Guerra MD Primary Care Provider Active Start: May 08, 2025 End: May 08, 2025 Team Status: Active Member Role Status Dates Dr. Meena Guerra MD Primary Care Provider Active Start: May 15, 2025 Dr. Meena Guerra MD Referring Provider Active Start: May 15, 2025 Ann Slater RESIN MAKER, RESIN MAKER-C Attending Provider Active Start: May 15, 2025 Team Status: Active Member Role Status Dates Dr. Meena Guerra MD Primary Care Provider Active Start: May 15, 2025 Dr. Meena Guerra MD Referring Provider Active Start: May 15, 2025 Ann Slater RESIN MAKER, RESIN MAKER-C Attending Provider Active Start: May 15, 2025 Ann Slater RESIN MAKER, RESIN MAKER-C Other Provider Active S tart: May 15, 2025 Job Spotter Relationship Specialty Start Date End Date Meena Guerra MD [address] [facility] [place] [address] PCP - General Internal Medicine 11/29/16 Jose Arreola APRN.MENTAL HEALTH CASE MANAGER [address] [facility] [place] [address] Grain Trader Internal Medicine 10/28/24 Stacey Lopez, BASIL [address] [place] [address] Primary Care Collection Systems Worker Internal Medicine 05/06/25 Job Spotter Relationship Specialty Start Date End Date Meena Guerra MD [address] [facility] [address] PCP - General Internal Medicine 11/29/16 Jose Arreola APRN.MENTAL HEALTH CASE MANAGER [address] [facility] [place] [address] Grain Trader Internal Medicine 10/28/24 Stacey Lopez RN [address] [place], [place] [id number] Primary Care Collection Systems Worker Internal Medicine 05/06/25 Job Spotter Relationship Specialty Start Date End Date Meena Guerra MD [address] [facility] [place] [address] PCP - General Internal Medicine 11/29/16 Jose Arreola APRN.MENTAL HEALTH CASE MANAGER [address] [facility] [place] [address] Grain Trader Internal Medicine 10/28/24 Stacey Lopez RN [address] [place] [address] Primary Care Collection Systems Worker Internal Medicine 05/06/25 Team Status: Active Member Role/Relationship Status Dates Dr. Meena Guerra MD Primary Care Provider Active Team Status: Inactive Member Role/Relationship Status Dates Dr. Meena Guerra MD Primary Care Provider Active Start: January 23, 2025 End: January 23, 2025 Dr. Meena Guerra MD Referring Provider Active Start: January 23, 2025 End: January 23, 2025 DAVIDSON Lomeli Attending Provider Active St art: January 23, 2025 End: January 23, 2025 Team Status: Inactive Member Role/Relationship Status Dates Dr. Meena Guerra MD Primary Care Provider Active Start: January 23, 2025 End: January 23, 2025 DAVIDSON Lomeli Attending Provider Active St art: January 23, 2025 End: January 23, 2025 Magdi Thomas PA Referring Provider Active St art: January 23, 2025 End: January 23, 2025 Team Status: Inactive Member Role/Relationship Status Dates Dr. Meena Guerra MD Primary Care Provider Active Start: January 31, 2025 End: January 31, 2025 DAVIDSON Lomeli Attending Provider Active St art: January 31, 2025 End: January 31, 2025 DAVIDSON Lomeli Referring Provider Active St art: January 31, 2025 End: January 31, 2025 Team Status: Inactive Member Role/Relationship Status Dates Dr. Nathan Castanon DO Emergency Provider Activ e Start: April 16, 2025 End: April 26, 2025 Dr. Ras Blas DO Admit Provider Active Star t: April 16, 2025 End: April 26, 2025 Dr. Ras Blas DO Referring Provider Active Start: April 16, 2025 End: April 26, 2025 Dr. Ras Blas DO Other Provider Active Star t: April 16, 2025 End: April 26, 2025 Dr. Amado Bailey MD Attending Provider Active Start: April 16, 2025 End: April 26, 2025 Ras Childress Primary Care Provider Active Sta rt: April 16, 2025 End: April 26, 2025 Dr. Koki Mcnulty MD Other Provider Active Sta rt: April 16, 2025 End: April 26, 2025 Dr. Migel Akins MD Other Provider Active Star t: April 16, 2025 End: April 26, 2025 Dr. Oscar Parmar MD Other Provider Active Star t: April 16, 2025 End: April 26, 2025 Dr. Nagi Martin MD Other Provider Active S tart: April 16, 2025 End: April 26, 2025 Dr. Jae Wong , Other Provider Active Start : April 16, 2025 End: April 26, 2025 Dr. Yang Rogers MD Other Provider Active Start : April 16, 2025 End: April 26, 2025 Dr. Mason Rodriguez , Other Provider Active St art: April 16, 2025 End: April 26, 2025 Dr. Franko Shaw MD Other Provider Active Star t: April 16, 2025 End: April 26, 2025 Dr. Rich Hand , Other Provider Active Start: April 16, 2025 End: April 26, 2025 Dr. Aurora Huerta MD Other Provider Active Star t: April 16, 2025 End: April 26, 2025 Dr. Reji Aguilar MD Other Provider Active Start: April 16, 2025 End: April 26, 2025 Dr. Eric Stanford MD Other Provider Active Star t: April 16, 2025 End: April 26, 2025 Dr. Babak Kilpatrick MD Other Provider Active Start: April 16, 2025 End: April 26, 2025 Dr. Ten Turner MD Other Provider Active St art: April 16, 2025 End: April 26, 2025 Dr. Claudia Gomes MD Other Provider Active Start: April 16, 2025 End: April 26, 2025 Dr. Roger Murphy MD Other Provider Active Sta rt: April 16, 2025 End: April 26, 2025 Dr. Nitish Monsivais MD Other Provider Active St art: April 16, 2025 End: April 26, 2025 Dr. Mary Lang MD Other Provider Active Sta rt: April 16, 2025 End: April 26, 2025 Dr. Gustavo Avila MD Other Provider Active St art: April 16, 2025 End: April 26, 2025 Dr. Darien Barry MD Other Provider Active Start: April 16, 2025 End: April 26, 2025 Dr. Amado Cortez MD Other Provider Active Sta rt: April 16, 2025 End: April 26, 2025 Dr. Heron Sosa MD Other Provider Active Start: April 16, 2025 End: April 26, 2025 Dr. Gaudencio Garrison MD Other Provider Active Start : April 16, 2025 End: April 26, 2025 Dr. Edward Le MD Other Provider Active Star t: April 16, 2025 End: April 26, 2025 Dr. Kayla Fields MD Other Provider Active St art: April 16, 2025 End: April 26, 2025 Dr. Aubrey De Luna MD Other Provider Active St art: April 16, 2025 End: April 26, 2025 Dr. Melissa Garcia MD Other Provider Active Start: April 16, 2025 End: April 26, 2025 Team Status: Active Member Role/Relationship Status Dates Dr. Meena Guerra MD Primary Care Provider Active Start: April 16, 2025 Dr. Nathan Castanon DO Emergency Provider Activ e Start: April 16, 2025 Dr. Ras Blas , Admit Provider Active Star t: April 16, 2025 Dr. Ras Blas DO Attending Provider Active Start: April 16, 2025 Dr. Ras Blas DO Other Provider Active Star t: April 16, 2025 Team Status: Active Member Role/Relationship Status Dates Dr. Meena Guerra MD Primary Care Provider Active Start: April 16, 2025 Dr. Edward Le MD Attending Provider Active Start: April 16, 2025 Team Status: Active Member Role/Relationship Status Dates Dr. Nathan Castanon DO Emergency Provider Activ e Start: April 17, 2025 Dr. Ras Blas DO Admit Provider Active Star t: April 17, 2025 Dr. Ras Blas DO Other Provider Active Star t: April 17, 2025 Dr. Amado Bailey MD Attending Provider Active Start: April 17, 2025 Dr. Amado Bailey MD Other Provider Active Star t: April 17, 2025 Ras Childress Primary Care Provider Active Sta rt: April 17, 2025 Dr. Melissa Garcia MD Other Provider Active Start: April 17, 2025 Team Status: Active Member Role/Relationship Status Dates Dr. Nathan Castanon , DO Emergency Provider Activ e Start: April 18, 2025 Dr. Ras Blas , DO Admit Provider Active Star t: April 18, 2025 Dr. Ras Blas DO Other Provider Active Star t: April 18, 2025 Dr. Amado Bailey MD Attending Provider Active Start: April 18, 2025 Dr. Amado Bailey MD Other Provider Active Star t: April 18, 2025 Ras Childress Primary Care Provider Active Sta rt: April 18, 2025 Dr. Melissa Garcia MD Other Provider Active Start: April 18, 2025 Team Status: Active Member Role/Relationship Status Dates Dr. Nathan Castanon DO Emergency Provider Activ e Start: April 18, 2025 Dr. Ras Blas , DO Admit Provider Active Star t: April 18, 2025 Dr. Ras Blas , DO Referring Provider Active Start: April 18, 2025 Dr. Ras Blas , DO Other Provider Active Star t: April 18, 2025 Dr. Amado Bailey MD Other Provider Active Star t: April 18, 2025 Ras Childress Primary Care Provider Active Sta rt: April 18, 2025 Dr. Melissa Garcia MD Other Provider Active Start: April 18, 2025 Dr. Edward Le MD Attending Provider Active Start: April 18, 2025 Dr. Edward Le MD Other Provider Active Star t: April 18, 2025 Team Status: Active Member Role/Relationship Status Dates Dr. Nathan Castanon , DO Emergency Provider Activ e Start: April 19, 2025 Dr. Ras Blas , DO Admit Provider Active Star t: April 19, 2025 Dr. Ras Blas , DO Other Provider Active Star t: April 19, 2025 Dr. Amado Bailey MD Attending Provider Active Start: April 19, 2025 Dr. Amado Bailey MD Other Provider Active Star t: April 19, 2025 Ras Childress Primary Care Provider Active Sta rt: April 19, 2025 Dr. Melissa Garcia MD Other Provider Active Start: April 19, 2025 Dr. Edward Le MD Other Provider Active Star t: April 19, 2025 Team Status: Active Member Role/Relationship Status Dates Dr. Nathan Castanon DO Emergency Provider Activ e Start: April 20, 2025 Dr. Ras Blas DO Admit Provider Active Star t: April 20, 2025 Dr. Ras Blas DO Other Provider Active Star t: April 20, 2025 Dr. Amado Bailey MD Attending Provider Active Start: April 20, 2025 Dr. Amado Bailey MD Other Provider Active Star t: April 20, 2025 Rasomer Childress Primary Care Provider Active Sta rt: April 20, 2025 Dr. Melissa Garcia MD Other Provider Active Start: April 20, 2025 Dr. Edward Le MD Other Provider Active Star t: April 20, 2025 Team Status: Active Member Role/Relationship Status Dates Dr. Nathan Castanon DO Emergency Provider Activ e Start: April 21, 2025 Dr. Ras Blas DO Admit Provider Active Star t: April 21, 2025 Dr. Ras Blas DO Other Provider Active Star t: April 21, 2025 Dr. Amado Bailey MD Attending Provider Active Start: April 21, 2025 Dr. Amado Bailey MD Other Provider Active Star t: April 21, 2025 Ras Childress Primary Care Provider Active Sta rt: April 21, 2025 Dr. Edward Le MD Other Provider Active Star t: April 21, 2025 Dr. Melissa Garcia MD Other Provider Active Start: April 21, 2025 Dr. Aubrey De Luna MD Other Provider Active St art: April 21, 2025 Team Status: Active Member Role/Relationship Status Dates Dr. Nathan Castanon DO Emergency Provider Activ e Start: April 21, 2025 Dr. Ras Blas DO Admit Provider Active Star t: April 21, 2025 Dr. Ras Blas DO Referring Provider Active Start: April 21, 2025 Dr. Ras Blas DO Other Provider Active Star t: April 21, 2025 Dr. Amado Bailey MD Other Provider Active Star t: April 21, 2025 Ras Childress Primary Care Provider Active Sta rt: April 21, 2025 Dr. Edward Le MD Other Provider Active Star t: April 21, 2025 Dr. Melissa Garcia MD Other Provider Active Start: April 21, 2025 Dr. Aubrey De Luna MD Attending Provider Active Start: April 21, 2025 Dr. Aubrey De Luna MD Other Provider Active St art: April 21, 2025 Team Status: Active Member Role/Relationship Status Dates Dr. Nathan Castanon DO Emergency Provider Activ e Start: April 22, 2025 Dr. Ras Blas DO Admit Provider Active Star t: April 22, 2025 Dr. Ras Blas DO Other Provider Active Star t: April 22, 2025 Dr. Amado Bailey MD Attending Provider Active Start: April 22, 2025 Dr. Amado Bailey MD Other Provider Active Star t: April 22, 2025 Rasomer Childress Primary Care Provider Active Sta rt: April 22, 2025 Dr. Edward Le MD Other Provider Active Star t: April 22, 2025 Dr. Melissa Garcia MD Other Provider Active Start: April 22, 2025 Dr. Aubrey De Luna MD Other Provider Active St art: April 22, 2025 Team Status: Active Member Role/Relationship Status Dates Dr. Nathan Castanon DO Emergency Provider Activ e Start: April 22, 2025 Dr. Ras Blas DO Admit Provider Active Star t: April 22, 2025 Dr. Ras Blas DO Referring Provider Active Start: April 22, 2025 Dr. Ras Blas DO Other Provider Active Star t: April 22, 2025 Dr. Amado Bailey MD Other Provider Active Star t: April 22, 2025 Rasomer Childress Primary Care Provider Active Sta rt: April 22, 2025 Dr. Edward Le MD Other Provider Active Star t: April 22, 2025 Dr. Melissa Garcia MD Other Provider Active Start: April 22, 2025 Dr. Aubrey De Luna MD Other Provider Active St art: April 22, 2025 Dr. Koik Mcnulty MD Other Provider Active Sta rt: April 22, 2025 Dr. Migel Akins MD Other Provider Active Star t: April 22, 2025 Dr. Oscar Parmar MD Other Provider Active Star t: April 22, 2025 Dr. Nagi Martin MD Other Provider Active S tart: April 22, 2025 Dr. Jae Wong , Attending Provider Active S tart: April 22, 2025 Dr. Jae Wong , Other Provider Active Start : April 22, 2025 Dr. Yang Rogers MD Other Provider Active Start : April 22, 2025 Dr. Mason Rodriguez DO Other Provider Active St art: April 22, 2025 Dr. Franko Shaw MD Other Provider Active Star t: April 22, 2025 Dr. Rich Hand DO Other Provider Active Start: April 22, 2025 Dr. Aurora Huerta MD Other Provider Active Star t: April 22, 2025 Dr. Reji Aguilar MD Other Provider Active Start: April 22, 2025 Dr. Eric Stanford MD Other Provider Active Star t: April 22, 2025 Dr. Babak Kilpatrick MD Other Provider Active Start: April 22, 2025 Dr. Ten Turner MD Other Provider Active St art: April 22, 2025 Dr. Claudia Gomes MD Other Provider Active Start: April 22, 2025 Dr. Roger Murphy MD Other Provider Active Sta rt: April 22, 2025 Dr. Nitish Monsivais MD Other Provider Active St art: April 22, 2025 Dr. Mary Lang MD Other Provider Active Sta rt: April 22, 2025 Dr. Gustavo Avila MD Other Provider Active St art: April 22, 2025 Dr. Darien Barry MD Other Provider Active Start: April 22, 2025 Dr. Amado Cortez MD Other Provider Active Sta rt: April 22, 2025 Dr. Heron Sosa MD Other Provider Active Start: April 22, 2025 Dr. Gaudencio Garrison MD Other Provider Active Start : April 22, 2025 Team Status: Active Member Role/Relationship Status Dates Dr. Nathan Castanon DO Emergency Provider Activ e Start: April 22, 2025 Dr. Ras Jopperi , DO Admit Provider Active Star t: April 22, 2025 Dr. Ras Blas DO Referring Provider Active Start: April 22, 2025 Dr. Ras Blas DO Other Provider Active Star t: April 22, 2025 Dr. Amado Bailey MD Other Provider Active Star t: April 22, 2025 Ras Childress Primary Care Provider Active Sta rt: April 22, 2025 Dr. Edward Le MD Other Provider Active Star t: April 22, 2025 Dr. Melissa Garcia MD Other Provider Active Start: April 22, 2025 Dr. Aubrey De Luna MD Other Provider Active St art: April 22, 2025 Dr. Koki Mcnulty MD Other Provider Active Sta rt: April 22, 2025 Dr. Migel Akins MD Other Provider Active Star t: April 22, 2025 Dr. Oscar Parmar MD Other Provider Active Star t: April 22, 2025 Dr. Nagi Martin MD Other Provider Active S tart: April 22, 2025 Dr. Jae Wong DO Other Provider Active Start : April 22, 2025 Dr. Yang Rogers MD Other Provider Active Start : April 22, 2025 Dr. Mason Rodriguez DO Other Provider Active St art: April 22, 2025 Dr. Franko Shaw MD Other Provider Active Star t: April 22, 2025 Dr. Rich Hand DO Other Provider Active Start: April 22, 2025 Dr. Aurora Huerta MD Other Provider Active Star t: April 22, 2025 Dr. Reji Aguilar MD Other Provider Active Start: April 22, 2025 Dr. Eric Stanford MD Other Provider Active Star t: April 22, 2025 Dr. Babak Kilpatrick MD Other Provider Active Start: April 22, 2025 Dr. Ten Turner MD Other Provider Active St art: April 22, 2025 Dr. Claudia Gomes MD Other Provider Active Start: April 22, 2025 Dr. Roger Murphy MD Other Provider Active Sta rt: April 22, 2025 Dr. Nitish Monsivais MD Other Provider Active St art: April 22, 2025 Dr. Mary Lnag MD Other Provider Active Sta rt: April 22, 2025 Dr. Gustavo Avila MD Other Provider Active St art: April 22, 2025 Dr. Darien Barry MD Other Provider Active Start: April 22, 2025 Dr. Amado Cortez MD Other Provider Active Sta rt: April 22, 2025 Dr. Heron Sosa MD Other Provider Active Start: April 22, 2025 Dr. Gaudencio Garrison MD Other Provider Active Start : April 22, 2025 Dr. Kayla Fields MD Attending Provider Active Start: April 22, 2025 Dr. Kayla Fields MD Other Provider Active St art: April 22, 2025 Team Status: Active Member Role/Relationship Status Dates Dr. Nathan Castanon , DO Emergency Provider Activ e Start: April 23, 2025 Dr. Ras Blas , Admit Provider Active Star t: April 23, 2025 Dr. Ras Blas , Other Provider Active Star t: April 23, 2025 Dr. Amado Bailey MD Attending Provider Active Start: April 23, 2025 Dr. Amado Bailey MD Other Provider Active Star t: April 23, 2025 Ras Childress Primary Care Provider Active Sta rt: April 23, 2025 Dr. Edward Le MD Other Provider Active Star t: April 23, 2025 Dr. Melissa Garcia MD Other Provider Active Start: April 23, 2025 Dr. Aubrey De Luna MD Other Provider Active St art: April 23, 2025 Dr. Koki Mcnulty MD Other Provider Active Sta rt: April 23, 2025 Dr. Migel Akins MD Other Provider Active Star t: April 23, 2025 Dr. Oscar Parmar MD Other Provider Active Star t: April 23, 2025 Dr. Nagi Martin MD Other Provider Active S tart: April 23, 2025 Dr. Jae Wong , Other Provider Active Start : April 23, 2025 Dr. Yang Rogers MD Other Provider Active Start : April 23, 2025 Dr. Mason Rodriguez , Other Provider Active St art: April 23, 2025 Dr. Franko Shaw MD Other Provider Active Star t: April 23, 2025 Dr. Rich Hand , Other Provider Active Start: April 23, 2025 Dr. Aurora Huerta MD Other Provider Active Star t: April 23, 2025 Dr. Reji Aguilar MD Other Provider Active Start: April 23, 2025 Dr. Eric Stanford MD Other Provider Active Star t: April 23, 2025 Dr. Babak Kilpatrick MD Other Provider Active Start: April 23, 2025 Dr. Ten Turner MD Other Provider Active St art: April 23, 2025 Dr. Claudia Gomes MD Other Provider Active Start: April 23, 2025 Dr. Roger Murphy MD Other Provider Active Sta rt: April 23, 2025 Dr. Nitish Monsivais MD Other Provider Active St art: April 23, 2025 Dr. Mary Lang MD Other Provider Active Sta rt: April 23, 2025 Dr. Gustavo Avila MD Other Provider Active St art: April 23, 2025 Dr. Darien Barry MD Other Provider Active Start: April 23, 2025 Dr. Amado Cortez MD Other Provider Active Sta rt: April 23, 2025 Dr. Heron Sosa MD Other Provider Active Start: April 23, 2025 Dr. Gaudencio Garrison MD Other Provider Active Start : April 23, 2025 Dr. Kayla Fields MD Other Provider Active St art: April 23, 2025 Team Status: Active Member Role/Relationship Status Dates Dr. Nathan Castanon DO Emergency Provider Activ e Start: April 23, 2025 Dr. Ras Blas DO Admit Provider Active Star t: April 23, 2025 Dr. Ras Blas DO Referring Provider Active Start: April 23, 2025 Dr. Ras Blas DO Other Provider Active Star t: April 23, 2025 Dr. Amado Bailey MD Other Provider Active Star t: April 23, 2025 Ras Childress Primary Care Provider Active Sta rt: April 23, 2025 Dr. Edward Le MD Other Provider Active Star t: April 23, 2025 Dr. Melissa Garcia MD Other Provider Active Start: April 23, 2025 Dr. Aubrey De Luna MD Other Provider Active St art: April 23, 2025 Dr. Koki Mcnulty MD Other Provider Active Sta rt: April 23, 2025 Dr. Migel Akins MD Other Provider Active Star t: April 23, 2025 Dr. Oscar Parmar MD Other Provider Active Star t: April 23, 2025 Dr. Nagi Martin MD Other Provider Active S tart: April 23, 2025 Dr. Jae Wong , Other Provider Active Start : April 23, 2025 Dr. Yang Rogers MD Other Provider Active Start : April 23, 2025 Dr. Mason Rodriguez , Other Provider Active St art: April 23, 2025 Dr. Franko Sahw MD Other Provider Active Star t: April 23, 2025 Dr. Rich Hand , Other Provider Active Start: April 23, 2025 Dr. Aurora Huerta MD Other Provider Active Star t: April 23, 2025 Dr. Reji Aguilar MD Other Provider Active Start: April 23, 2025 Dr. Eric Stanford MD Other Provider Active Star t: April 23, 2025 Dr. Babak Kilpatrick MD Other Provider Active Start: April 23, 2025 Dr. Ten Turner MD Other Provider Active St art: April 23, 2025 Dr. Claudia Gomes MD Other Provider Active Start: April 23, 2025 Dr. Roger Murphy MD Other Provider Active Sta rt: April 23, 2025 Dr. Nitish Monsivais MD Other Provider Active St art: April 23, 2025 Dr. Mary Lang MD Other Provider Active Sta rt: April 23, 2025 Dr. Gustavo Avila MD Other Provider Active St art: April 23, 2025 Dr. Darien Barry MD Other Provider Active Start: April 23, 2025 Dr. Amado Cortez MD Other Provider Active Sta rt: April 23, 2025 Dr. Heron Sosa MD Other Provider Active Start: April 23, 2025 Dr. Gaudencio Garrison MD Other Provider Active Start : April 23, 2025 Dr. Kayla Fields MD Attending Provider Active Start: April 23, 2025 Dr. Kayla Fields MD Other Provider Active St art: April 23, 2025 Team Status: Active Member Role/Relationship Status Dates Dr. Nathan Castanon DO Emergency Provider Activ e Start: April 23, 2025 Dr. Ras Blas DO Admit Provider Active Star t: April 23, 2025 Dr. Ras Blas DO Referring Provider Active Start: April 23, 2025 Dr. Ras Blas DO Other Provider Active Star t: April 23, 2025 Dr. Amado Bailey MD Other Provider Active Star t: April 23, 2025 Ras Childress Primary Care Provider Active Sta rt: April 23, 2025 Dr. Edward Le MD Other Provider Active Star t: April 23, 2025 Dr. Melissa Garcia MD Other Provider Active Start: April 23, 2025 Dr. Aubrey De Luna MD Other Provider Active St art: April 23, 2025 Dr. Koki Mcnulty MD Other Provider Active Sta rt: April 23, 2025 Dr. Migel Akins MD Other Provider Active Star t: April 23, 2025 Dr. Oscar Parmar MD Other Provider Active Star t: April 23, 2025 Dr. Nagi Martin MD Other Provider Active S tart: April 23, 2025 Dr. Jae Wong DO Attending Provider Active S tart: April 23, 2025 Dr. Jae Wong DO Other Provider Active Start : April 23, 2025 Dr. Yang Rogers MD Other Provider Active Start : April 23, 2025 Dr. Mason Rodriguez DO Other Provider Active St art: April 23, 2025 Dr. Franko Shaw MD Other Provider Active Star t: April 23, 2025 Dr. Rich Hadn DO Other Provider Active Start: April 23, 2025 Dr. Aurora Huerta MD Other Provider Active Star t: April 23, 2025 Dr. Reji Aguilar MD Other Provider Active Start: April 23, 2025 Dr. Eric Stanford MD Other Provider Active Star t: April 23, 2025 Dr. Babak Kilpatrick MD Other Provider Active Start: April 23, 2025 Dr. Ten Turner MD Other Provider Active St art: April 23, 2025 Dr. Claudia Gomes MD Other Provider Active Start: April 23, 2025 Dr. Roger Murphy MD Other Provider Active Sta rt: April 23, 2025 Dr. Nitish Monsivais MD Other Provider Active St art: April 23, 2025 Dr. Mary Lang MD Other Provider Active Sta rt: April 23, 2025 Dr. Gustavo Avila MD Other Provider Active St art: April 23, 2025 Dr. Darien Barry MD Other Provider Active Start: April 23, 2025 Dr. Amado Cortez MD Other Provider Active Sta rt: April 23, 2025 Dr. Heron Sosa MD Other Provider Active Start: April 23, 2025 Dr. Gaudencio Garrison MD Other Provider Active Start : April 23, 2025 Dr. Kayla Fields MD Other Provider Active St art: April 23, 2025 Team Status: Active Member Role/Relationship Status Dates Dr. Nathan Castanon DO Emergency Provider Activ e Start: April 23, 2025 Dr. Ras Blas DO Admit Provider Active Star t: April 23, 2025 Dr. Ras Blas DO Referring Provider Active Start: April 23, 2025 Dr. Ras Blas DO Other Provider Active Star t: April 23, 2025 Dr. Amado Bailey MD Other Provider Active Star t: April 23, 2025 Ras Childress Primary Care Provider Active Sta rt: April 23, 2025 Dr. Edward Le MD Other Provider Active Star t: April 23, 2025 Dr. Melissa Garcia MD Other Provider Active Start: April 23, 2025 Dr. Aubrey De Luna MD Other Provider Active St art: April 23, 2025 Dr. Koki Mcnulty MD Other Provider Active Sta rt: April 23, 2025 Dr. Migel Akins MD Other Provider Active Star t: April 23, 2025 Dr. Oscar Parmar MD Other Provider Active Star t: April 23, 2025 Dr. Nagi Martin MD Other Provider Active S tart: April 23, 2025 Dr. Jae Wong DO Other Provider Active Start : April 23, 2025 Dr. Yang Rogers MD Other Provider Active Start : April 23, 2025 Dr. Mason Rodriguez , Other Provider Active St art: April 23, 2025 Dr. Franko Shaw MD Other Provider Active Star t: April 23, 2025 Dr. Rich Hand , Other Provider Active Start: April 23, 2025 Dr. Aurora Huerta MD Other Provider Active Star t: April 23, 2025 Dr. Reji Aguilar MD Other Provider Active Start: April 23, 2025 Dr. Eric Stanford MD Other Provider Active Star t: April 23, 2025 Dr. Babak Kilpatrick MD Other Provider Active Start: April 23, 2025 Dr. Ten Turner MD Other Provider Active St art: April 23, 2025 Dr. Claudia Gomes MD Other Provider Active Start: April 23, 2025 Dr. Roger Murphy MD Other Provider Active Sta rt: April 23, 2025 Dr. Nitish Monsivais MD Other Provider Active St art: April 23, 2025 Dr. Mary Lang MD Other Provider Active Sta rt: April 23, 2025 Dr. Gustavo Avila MD Other Provider Active St art: April 23, 2025 Dr. Darien Barry MD Other Provider Active Start: April 23, 2025 Dr. Amado Cortez MD Other Provider Active Sta rt: April 23, 2025 Dr. Heron Sosa MD Other Provider Active Start: April 23, 2025 Dr. Gaudencio Garrison MD Other Provider Active Start : April 23, 2025 Dr. Kayla Fields MD Other Provider Active St art: April 23, 2025 Mckayla CEDEÑO PA-C Attending Provider Active Start: April 23, 2025 Team Status: Active Member Role/Relationship Status Dates Dr. Nathan Castanon DO Emergency Provider Activ e Start: April 24, 2025 Dr. Ras Blas DO Admit Provider Active Star t: April 24, 2025 Dr. Ras Blas DO Other Provider Active Star t: April 24, 2025 Dr. Amado Bailey MD Attending Provider Active Start: April 24, 2025 Dr. Amado Bailey MD Other Provider Active Star t: April 24, 2025 Ras Childress Primary Care Provider Active Sta rt: April 24, 2025 Dr. Edward Le MD Other Provider Active Star t: April 24, 2025 Dr. Melissa Garcia MD Other Provider Active Start: April 24, 2025 Dr. Aubrey De Luna MD Other Provider Active St art: April 24, 2025 Dr. Koki Mcnulty MD Other Provider Active Sta rt: April 24, 2025 Dr. Migel Akins MD Other Provider Active Star t: April 24, 2025 Dr. Oscar Parmar MD Other Provider Active Star t: April 24, 2025 Dr. Nagi Martin MD Other Provider Active S tart: April 24, 2025 Dr. Jae Wong , DO Other Provider Active Start : April 24, 2025 Dr. Yang Rogers MD Other Provider Active Start : April 24, 2025 Dr. Mason Rodriguez , DO Other Provider Active St art: April 24, 2025 Dr. Franko Shaw MD Other Provider Active Star t: April 24, 2025 Dr. Rich Hand , Other Provider Active Start: April 24, 2025 Dr. Aurora Huerta MD Other Provider Active Star t: April 24, 2025 Dr. Reji Aguilar MD Other Provider Active Start: April 24, 2025 Dr. Eric Stanford MD Other Provider Active Star t: April 24, 2025 Dr. Babak Kilpatrick MD Other Provider Active Start: April 24, 2025 Dr. Ten Turner MD Other Provider Active St art: April 24, 2025 Dr. Claudia Gomes MD Other Provider Active Start: April 24, 2025 Dr. Roger Murphy MD Other Provider Active Sta rt: April 24, 2025 Dr. Nitish Monsivais MD Other Provider Active St art: April 24, 2025 Dr. Mary Lang MD Other Provider Active Sta rt: April 24, 2025 Dr. Gustavo Avila MD Other Provider Active St art: April 24, 2025 Dr. Darien Barry MD Other Provider Active Start: April 24, 2025 Dr. Amado Cortez MD Other Provider Active Sta rt: April 24, 2025 Dr. Heron Sosa MD Other Provider Active Start: April 24, 2025 Dr. Gaudencio Garrison MD Other Provider Active Start : April 24, 2025 Dr. Kayla Fields MD Other Provider Active St art: April 24, 2025 Team Status: Active Member Role/Relationship Status Dates Dr. Nathan Castanon DO Emergency Provider Activ e Start: April 24, 2025 Dr. Ras Blas , Admit Provider Active Star t: April 24, 2025 Dr. Ras Blas DO Referring Provider Active Start: April 24, 2025 Dr. Ras Jopperi , DO Other Provider Active Star t: April 24, 2025 Dr. Amado Bailey MD Other Provider Active Star t: April 24, 2025 Ras Childress Primary Care Provider Active Sta rt: April 24, 2025 Dr. Edward Le MD Other Provider Active Star t: April 24, 2025 Dr. Melissa Garcia MD Other Provider Active Start: April 24, 2025 Dr. Aubrey De Luna MD Other Provider Active St art: April 24, 2025 Dr. Koki Mcnulty MD Other Provider Active Sta rt: April 24, 2025 Dr. Migel Akins MD Other Provider Active Star t: April 24, 2025 Dr. Oscar Parmar MD Other Provider Active Star t: April 24, 2025 Dr. Nagi Martin MD Other Provider Active S tart: April 24, 2025 Dr. Jae Wong , Other Provider Active Start : April 24, 2025 Dr. Yang Rogers MD Other Provider Active Start : April 24, 2025 Dr. Mason Rodriguez , Other Provider Active St art: April 24, 2025 Dr. Franko Shaw MD Other Provider Active Star t: April 24, 2025 Dr. Rich Hand , Other Provider Active Start: April 24, 2025 Dr. Aurora Huerta MD Other Provider Active Star t: April 24, 2025 Dr. Reji Aguilar MD Other Provider Active Start: April 24, 2025 Dr. Eric Stanford MD Other Provider Active Star t: April 24, 2025 Dr. Babak Kilpatrick MD Other Provider Active Start: April 24, 2025 Dr. Ten Turner MD Other Provider Active St art: April 24, 2025 Dr. Claudia Gomes MD Other Provider Active Start: April 24, 2025 Dr. Roger Murphy MD Other Provider Active Sta rt: April 24, 2025 Dr. Nitish Monsivais MD Other Provider Active St art: April 24, 2025 Dr. Mary Lang MD Other Provider Active Sta rt: April 24, 2025 Dr. Gustavo Avila MD Other Provider Active St art: April 24, 2025 Dr. Darien Barry MD Other Provider Active Start: April 24, 2025 Dr. Amado Cortez MD Other Provider Active Sta rt: April 24, 2025 Dr. Heron Sosa MD Other Provider Active Start: April 24, 2025 Dr. Gaudencio Garrison MD Other Provider Active Start : April 24, 2025 Dr. Kayla Fields MD Attending Provider Active Start: April 24, 2025 Dr. Kayla Fields MD Other Provider Active St art: April 24, 2025 Team Status: Active Member Role/Relationship Status Dates Dr. Nathan Castanon DO Emergency Provider Activ e Start: April 25, 2025 Dr. Ras Blas DO Admit Provider Active Star t: April 25, 2025 Dr. Ras Blas DO Other Provider Active Star t: April 25, 2025 Dr. Amado Bailey MD Attending Provider Active Start: April 25, 2025 Dr. Amado Bailey MD Other Provider Active Star t: April 25, 2025 Ras Childress Primary Care Provider Active Sta rt: April 25, 2025 Dr. Koki Mcnulty MD Other Provider Active Sta rt: April 25, 2025 Dr. Migel Akins MD Other Provider Active Star t: April 25, 2025 Dr. Oscar Parmar MD Other Provider Active Star t: April 25, 2025 Dr. Nagi Martin MD Other Provider Active S tart: April 25, 2025 Dr. Jae Wong DO Other Provider Active Start : April 25, 2025 Dr. Yang Rogers MD Other Provider Active Start : April 25, 2025 Dr. Mason Rodriguez , Other Provider Active St art: April 25, 2025 Dr. Franko Shaw MD Other Provider Active Star t: April 25, 2025 Dr. Rich Hand DO Other Provider Active Start: April 25, 2025 Dr. Aurora Huerta MD Other Provider Active Star t: April 25, 2025 Dr. Reji Aguilar MD Other Provider Active Start: April 25, 2025 Dr. Eric Stanford MD Other Provider Active Star t: April 25, 2025 Dr. Babak Kilpatrick MD Other Provider Active Start: April 25, 2025 Dr. Ten Turner MD Other Provider Active St art: April 25, 2025 Dr. Claudia Gomes MD Other Provider Active Start: April 25, 2025 Dr. Roger Murphy MD Other Provider Active Sta rt: April 25, 2025 Dr. Nitish Monsivais MD Other Provider Active St art: April 25, 2025 Dr. Mary Lang MD Other Provider Active Sta rt: April 25, 2025 Dr. Gustavo Avila MD Other Provider Active St art: April 25, 2025 Dr. Darien Barry MD Other Provider Active Start: April 25, 2025 Dr. Amado Cortez MD Other Provider Active Sta rt: April 25, 2025 Dr. Heron Sosa MD Other Provider Active Start: April 25, 2025 Dr. Gaudencio Garrison MD Other Provider Active Start : April 25, 2025 Dr. Edward Le MD Other Provider Active Star t: April 25, 2025 Dr. Kayla Fields MD Other Provider Active St art: April 25, 2025 Dr. Aubrey De Luna MD Other Provider Active St art: April 25, 2025 Dr. Melissa Garcia MD Other Provider Active Start: April 25, 2025 Team Status: Active Member Role/Relationship Status Dates Dr. Nathan Castanon DO Emergency Provider Activ e Start: April 26, 2025 Dr. Ras Blas DO Admit Provider Active Star t: April 26, 2025 Dr. Ras Blas DO Other Provider Active Star t: April 26, 2025 Dr. Amado Bailey MD Attending Provider Active Start: April 26, 2025 Dr. Amado Bailey MD Other Provider Active Star t: April 26, 2025 Ras Childress Primary Care Provider Active Sta rt: April 26, 2025 Dr. Koki Mcnulty MD Other Provider Active Sta rt: April 26, 2025 Dr. Migel Akins MD Other Provider Active Star t: April 26, 2025 Dr. Oscar Parmar MD Other Provider Active Star t: April 26, 2025 Dr. Nagi Martin MD Other Provider Active S tart: April 26, 2025 Dr. Jae Wong , Other Provider Active Start : April 26, 2025 Dr. Yang Rogers MD Other Provider Active Start : April 26, 2025 Dr. Mason Rodriguez , Other Provider Active St art: April 26, 2025 Dr. Franko Shaw MD Other Provider Active Star t: April 26, 2025 Dr. Rich Hand DO Other Provider Active Start: April 26, 2025 Dr. Aurora Huerta MD Other Provider Active Star t: April 26, 2025 Dr. Reji Aguilar MD Other Provider Active Start: April 26, 2025 Dr. Eric Stanford MD Other Provider Active Star t: April 26, 2025 Dr. Babak Kilpatrick MD Other Provider Active Start: April 26, 2025 Dr. Ten Turner MD Other Provider Active St art: April 26, 2025 Dr. Claudia Gomes MD Other Provider Active Start: April 26, 2025 Dr. Roger Murphy MD Other Provider Active Sta rt: April 26, 2025 Dr. Nitish Monsivais MD Other Provider Active St art: April 26, 2025 Dr. Mary Lang MD Other Provider Active Sta rt: April 26, 2025 Dr. Gustavo Avila MD Other Provider Active St art: April 26, 2025 Dr. Darien Barry MD Other Provider Active Start: April 26, 2025 Dr. Amado Cortez MD Other Provider Active Sta rt: April 26, 2025 Dr. Heron Sosa MD Other Provider Active Start: April 26, 2025 Dr. Gaudencio Garrison MD Other Provider Active Start : April 26, 2025 Dr. Edward Le MD Other Provider Active Star t: April 26, 2025 Dr. Kayla Fields MD Other Provider Active St art: April 26, 2025 Dr. Aubrey De Luna MD Other Provider Active St art: April 26, 2025 Dr. Melissa Garcia MD Other Provider Active Start: April 26, 2025 Team Status: Active Member Role/Relationship Status Dates Ras Childress Primary Care Provider Active Sta rt: April 27, 2025 Dr. Sammy Guerrero DO Emergency Provider Active Start : April 27, 2025 Dr. Dayana Abel MD Attending Provider Active Start: April 27, 2025 Team Status: Inactive Member Role/Relationship Status Dates Dr. Sammy Guerrero DO Emergency Provider Active Start : April 27, 2025 End: May 03, 2025 Dr. Dayana Abel MD Admit Provider Active St art: April 27, 2025 End: May 03, 2025 Dr. Dayana Abel MD Other Provider Active St art: April 27, 2025 End: May 03, 2025 Dr. Ras Blas DO Attending Provider Active Start: April 27, 2025 End: May 03, 2025 Meena VIEIRA MD Primary Care Provider Active Start: April 27, 2025 End: May 03, 2025 Team Status: Active Member Role/Relationship Status Dates Ras Childress Primary Care Provider Active Sta rt: April 27, 2025 Dr. Sammy Guerrero DO Emergency Provider Active Start : April 27, 2025 Dr. Dayana Abel MD Admit Provider Active St art: April 27, 2025 Dr. Dayana Abel MD Referring Provider Active Start: April 27, 2025 Dr. Dayana Abel MD Other Provider Active St art: April 27, 2025 Dr. Ras Blas DO Other Provider Active Star t: April 27, 2025 Dr. Reji Aguilar MD Other Provider Active Start: April 27, 2025 Dr. Darien Barry MD Other Provider Active Start: April 27, 2025 Dr. Oscar Parmar MD Other Provider Active Star t: April 27, 2025 Dr. Jae Wong DO Other Provider Active Start : April 27, 2025 Dr. Amado Cortez MD Other Provider Active Sta rt: April 27, 2025 Dr. Gustavo Avila MD Other Provider Active St art: April 27, 2025 Dr. Nagi Martin MD Other Provider Active S tart: April 27, 2025 Dr. Claudia Gomes MD Other Provider Active Start: April 27, 2025 Dr. Yang Rogers MD Other Provider Active Start : April 27, 2025 Dr. Heron Sosa MD Other Provider Active Start: April 27, 2025 Dr. Gaudencio Garrison MD Other Provider Active Start : April 27, 2025 Dr. Aurora Huerta MD Other Provider Active Star t: April 27, 2025 Dr. Koki Mcnulty MD Other Provider Active Sta rt: April 27, 2025 Dr. Mary Lang MD Other Provider Active Sta rt: April 27, 2025 Dr. Eric Stanford MD Other Provider Active Star t: April 27, 2025 Dr. Nitish Monsivais MD Other Provider Active St art: April 27, 2025 Dr. Franko Shaw MD Other Provider Active Star t: April 27, 2025 Dr. Mason Rodriguez DO Other Provider Active St art: April 27, 2025 Dr. Babak Kilpatrick MD Other Provider Active Start: April 27, 2025 Dr. Ten Turner MD Other Provider Active St art: April 27, 2025 Dr. Rich Hand DO Other Provider Active Start: April 27, 2025 Dr. Migel Akins MD Other Provider Active Star t: April 27, 2025 Dr. Roger Murphy MD Other Provider Active Sta rt: April 27, 2025 Dr. Jayden Still DO Attending Provider Active Start: April 27, 2025 Team Status: Active Member Role/Relationship Status Dates Ras Childress Primary Care Provider Active Sta rt: April 28, 2025 Dr. Sammy Guerrero DO Emergency Provider Active Start : April 28, 2025 Dr. Dayana Abel MD Admit Provider Active St art: April 28, 2025 Dr. Dayana Abel MD Other Provider Active St art: April 28, 2025 Dr. Ras Blas DO Attending Provider Active Start: April 28, 2025 Dr. Ras Blas DO Other Provider Active Star t: April 28, 2025 Dr. Reji Aguilar MD Other Provider Active Start: April 28, 2025 Dr. Darien Barry MD Other Provider Active Start: April 28, 2025 Dr. Oscar Parmar MD Other Provider Active Star t: April 28, 2025 Dr. Jae Wong DO Other Provider Active Start : April 28, 2025 Dr. Amado Cortez MD Other Provider Active Sta rt: April 28, 2025 Dr. Gustavo Avila MD Other Provider Active St art: April 28, 2025 Dr. Nagi Martin MD Other Provider Active S tart: April 28, 2025 Dr. Claudia Gomes MD Other Provider Active Start: April 28, 2025 Dr. Yang Rogers MD Other Provider Active Start : April 28, 2025 Dr. Heron Sosa MD Other Provider Active Start: April 28, 2025 Dr. Gaudencio Garrison MD Other Provider Active Start : April 28, 2025 Dr. Aurora Huerta MD Other Provider Active Star t: April 28, 2025 Dr. Koki Mcnulty MD Other Provider Active Sta rt: April 28, 2025 Dr. Mary Lang MD Other Provider Active Sta rt: April 28, 2025 Dr. Eric Stanford MD Other Provider Active Star t: April 28, 2025 Dr. Nitish Monsivais MD Other Provider Active St art: April 28, 2025 Dr. Franko Shaw MD Other Provider Active Star t: April 28, 2025 Dr. Mason Rodriguez DO Other Provider Active St art: April 28, 2025 Dr. Babak Kilpatrick MD Other Provider Active Start: April 28, 2025 Dr. Ten Turner MD Other Provider Active St art: April 28, 2025 Dr. Rich Hand DO Other Provider Active Start: April 28, 2025 Dr. Migel Akins MD Other Provider Active Star t: April 28, 2025 Dr. Roger Murphy MD Other Provider Active Sta rt: April 28, 2025 Team Status: Active Member Role/Relationship Status Dates Ras Childress Primary Care Provider Active Sta rt: April 29, 2025 Dr. Sammy Guerrero DO Emergency Provider Active Start : April 29, 2025 Dr. Dayana Abel MD Admit Provider Active St art: April 29, 2025 Dr. Dayana Abel MD Other Provider Active St art: April 29, 2025 Dr. Ras Blas DO Referring Provider Active Start: April 29, 2025 Dr. Ras Blas DO Other Provider Active Star t: April 29, 2025 Dr. Reji Aguilar MD Other Provider Active Start: April 29, 2025 Dr. Darien Barry MD Other Provider Active Start: April 29, 2025 Dr. Oscar Parmar MD Other Provider Active Star t: April 29, 2025 Dr. Jae Wong DO Attending Provider Active S tart: April 29, 2025 Dr. Jae Wong DO Other Provider Active Start : April 29, 2025 Dr. Amado Cortez MD Other Provider Active Sta rt: April 29, 2025 Dr. Gustavo Avila MD Other Provider Active St art: April 29, 2025 Dr. Nagi Martin MD Other Provider Active S tart: April 29, 2025 Dr. Claudia Gomes MD Other Provider Active Start: April 29, 2025 Dr. Yang Rogers MD Other Provider Active Start : April 29, 2025 Dr. Heron Sosa MD Other Provider Active Start: April 29, 2025 Dr. Gaudencio Garrison MD Other Provider Active Start : April 29, 2025 Dr. Aurora Huerta MD Other Provider Active Star t: April 29, 2025 Dr. Koki Mcnulty MD Other Provider Active Sta rt: April 29, 2025 Dr. Mary Lang MD Other Provider Active Sta rt: April 29, 2025 Dr. Eric Stanford MD Other Provider Active Star t: April 29, 2025 Dr. Nitish Monsivais MD Other Provider Active St art: April 29, 2025 Dr. Franko Shaw MD Other Provider Active Star t: April 29, 2025 Dr. Mason Rodriguez DO Other Provider Active St art: April 29, 2025 Dr. Babak Kilpatrick MD Other Provider Active Start: April 29, 2025 Dr. Ten Turner MD Other Provider Active St art: April 29, 2025 Dr. Rich Hand DO Other Provider Active Start: April 29, 2025 Dr. Migel Akins MD Other Provider Active Star t: April 29, 2025 Dr. Roger Murphy MD Other Provider Active Sta rt: April 29, 2025 Team Status: Active Member Role/Relationship Status Dates Ras Childress Primary Care Provider Active Sta rt: April 29, 2025 Dr. Sammy Guerrero DO Emergency Provider Active Start : April 29, 2025 Dr. Dayana Abel MD Admit Provider Active St art: April 29, 2025 Dr. Dayana Abel MD Other Provider Active St art: April 29, 2025 Dr. Ras Blas DO Referring Provider Active Start: April 29, 2025 Dr. Ras Blas DO Other Provider Active Star t: April 29, 2025 Dr. Reji Aguilar MD Other Provider Active Start: April 29, 2025 Dr. Darien Barry MD Other Provider Active Start: April 29, 2025 Dr. Oscar Parmar MD Other Provider Active Star t: April 29, 2025 Dr. Jae Wong DO Other Provider Active Start : April 29, 2025 Dr. Amado Cortez MD Other Provider Active Sta rt: April 29, 2025 Dr. Gustavo Avila MD Other Provider Active St art: April 29, 2025 Dr. Nagi Martin MD Other Provider Active S tart: April 29, 2025 Dr. Claudia Gomes MD Other Provider Active Start: April 29, 2025 Dr. Yang Rogers MD Other Provider Active Start : April 29, 2025 Dr. Heron Sosa MD Other Provider Active Start: April 29, 2025 Dr. Gaudencio Garrison MD Other Provider Active Start : April 29, 2025 Dr. Aurora Huerta MD Other Provider Active Star t: April 29, 2025 Dr. Koki Mcnulty MD Other Provider Active Sta rt: April 29, 2025 Dr. Mary Lang MD Other Provider Active Sta rt: April 29, 2025 Dr. Eric Stanford MD Other Provider Active Star t: April 29, 2025 Dr. Nitish Monsivais MD Other Provider Active St art: April 29, 2025 Dr. Franko Shaw MD Other Provider Active Star t: April 29, 2025 Dr. Mason Rodriguez DO Other Provider Active St art: April 29, 2025 Dr. Babak Kilpatrick MD Other Provider Active Start: April 29, 2025 Dr. Ten Turner MD Other Provider Active St art: April 29, 2025 Dr. Rich Hand DO Other Provider Active Start: April 29, 2025 Dr. Migel Akins MD Other Provider Active Star t: April 29, 2025 Dr. Roger Murphy MD Other Provider Active Sta rt: April 29, 2025 Dr. Jayden Still DO Attending Provider Active Start: April 29, 2025 Team Status: Active Member Role/Relationship Status Dates Ras Childress Primary Care Provider Active Sta rt: April 29, 2025 Dr. Sammy Guerrero DO Emergency Provider Active Start : April 29, 2025 Dr. Dayana Abel MD Admit Provider Active St art: April 29, 2025 Dr. Dayana Abel MD Other Provider Active St art: April 29, 2025 Dr. Ras Blas , Attending Provider Active Start: April 29, 2025 Dr. Ras Blas , Other Provider Active Star t: April 29, 2025 Dr. Reji Aguilar MD Other Provider Active Start: April 29, 2025 Dr. Darien Barry MD Other Provider Active Start: April 29, 2025 Dr. Oscar Parmar MD Other Provider Active Star t: April 29, 2025 Dr. Jae Wong DO Other Provider Active Start : April 29, 2025 Dr. Amado Cortez MD Other Provider Active Sta rt: April 29, 2025 Dr. Gustavo Avila MD Other Provider Active St art: April 29, 2025 Dr. Nagi Martin MD Other Provider Active S tart: April 29, 2025 Dr. Claudia Gomes MD Other Provider Active Start: April 29, 2025 Dr. Yang Rogers MD Other Provider Active Start : April 29, 2025 Dr. Heron Sosa MD Other Provider Active Start: April 29, 2025 Dr. Gaudencio Garrison MD Other Provider Active Start : April 29, 2025 Dr. Aurora Huerta MD Other Provider Active Star t: April 29, 2025 Dr. Koki Mcnulty MD Other Provider Active Sta rt: April 29, 2025 Dr. Mary Lang MD Other Provider Active Sta rt: April 29, 2025 Dr. Eric Stanford MD Other Provider Active Star t: April 29, 2025 Dr. Nitish Monsivais MD Other Provider Active St art: April 29, 2025 Dr. Franko Shaw MD Other Provider Active Star t: April 29, 2025 Dr. Mason Rodriguez , Other Provider Active St art: April 29, 2025 Dr. Babak Kilpatrick MD Other Provider Active Start: April 29, 2025 Dr. Ten Turner MD Other Provider Active St art: April 29, 2025 Dr. Rich Hand DO Other Provider Active Start: April 29, 2025 Dr. Migel Akins MD Other Provider Active Star t: April 29, 2025 Dr. Roger Murphy MD Other Provider Active Sta rt: April 29, 2025 Team Status: Active Member Role/Relationship Status Dates Ras Childress Primary Care Provider Active Sta rt: April 30, 2025 Dr. Sammy Guerrero DO Emergency Provider Active Start : April 30, 2025 Dr. Dayana Abel MD Admit Provider Active St art: April 30, 2025 Dr. Dayana Abel MD Other Provider Active St art: April 30, 2025 Dr. Ras Blas DO Attending Provider Active Start: April 30, 2025 Dr. Ras Blas DO Other Provider Active Star t: April 30, 2025 Team Status: Active Member Role/Relationship Status Dates Ras Childress Primary Care Provider Active Sta rt: April 30, 2025 Dr. Sammy Guerrero DO Emergency Provider Active Start : April 30, 2025 Dr. Dayana Abel MD Admit Provider Active St art: April 30, 2025 Dr. Dayana Abel MD Other Provider Active St art: April 30, 2025 Dr. Ras Blas DO Referring Provider Active Start: April 30, 2025 Dr. Ras Blas DO Other Provider Active Star t: April 30, 2025 Dr. Jayden Still DO Attending Provider Active Start: April 30, 2025 Team Status: Active Member Role/Relationship Status Dates Ras Childress Primary Care Provider Active Sta rt: May 01, 2025 Dr. Sammy Guerrero DO Emergency Provider Active Start : May 01, 2025 Dr. Dayana Abel MD Admit Provider Active St art: May 01, 2025 Dr. Dayana Abel MD Other Provider Active St art: May 01, 2025 Dr. Ras Blas DO Attending Provider Active Start: May 01, 2025 Dr. Ras Blas DO Other Provider Active Star t: May 01, 2025 Team Status: Active Member Role/Relationship Status Dates Ras Childress Primary Care Provider Active Sta rt: May 01, 2025 Dr. Sammy Guerrero DO Emergency Provider Active Start : May 01, 2025 Dr. Dayana Abel MD Admit Provider Active St art: May 01, 2025 Dr. Dayana Abel MD Other Provider Active St art: May 01, 2025 Dr. Ras Blas DO Referring Provider Active Start: May 01, 2025 Dr. Ras Blas DO Other Provider Active Star t: May 01, 2025 Dr. Jayden Still DO Attending Provider Active Start: May 01, 2025 Team Status: Active Member Role/Relationship Status Dates Dr. Sammy Guerrero DO Emergency Provider Active Start : May 02, 2025 Dr. Dayana Abel MD Admit Provider Active St art: May 02, 2025 Dr. Dayana Abel MD Other Provider Active St art: May 02, 2025 Dr. Ras Blas DO Attending Provider Active Start: May 02, 2025 Dr. Ras Blas DO Other Provider Active Star t: May 02, 2025 Meena VIEIRA MD Primary Care Provider Active Start: May 02, 2025 Team Status: Active Member Role/Relationship Status Dates Dr. Sammy Guerrero DO Emergency Provider Active Start : May 02, 2025 Dr. Dayana Abel MD Admit Provider Active St art: May 02, 2025 Dr. Dayana Abel MD Other Provider Active St art: May 02, 2025 Dr. Ras Blas DO Referring Provider Active Start: May 02, 2025 Dr. Ras Blas DO Other Provider Active Star t: May 02, 2025 Meena VIEIRA MD Primary Care Provider Active Start: May 02, 2025 Dr. Jayden Still DO Attending Provider Active Start: May 02, 2025 Team Status: Active Member Role/Relationship Status Dates Dr. Sammy Guerrero DO Emergency Provider Active Start : May 03, 2025 Dr. Dayana Abel MD Admit Provider Active St art: May 03, 2025 Dr. Dayana Abel MD Other Provider Active St art: May 03, 2025 Dr. Ras Blas DO Attending Provider Active Start: May 03, 2025 Dr. Ras Blas DO Other Provider Active Star t: May 03, 2025 Meena VIEIRA MD Primary Care Provider Active Start: May 03, 2025 Team Status: Active Member Role/Relationship Status Dates Dr. Sammy Guerrero DO Emergency Provider Active Start : May 03, 2025 Dr. Dayana Abel MD Admit Provider Active St art: May 03, 2025 Dr. Dayana Abel MD Other Provider Active St art: May 03, 2025 Dr. Ras Blas DO Referring Provider Active Start: May 03, 2025 Dr. Ras Blas DO Other Provider Active Star t: May 03, 2025 Meena VIEIRA MD Primary Care Provider Active Start: May 03, 2025 Dr. Jayden Still DO Attending Provider Active Start: May 03, 2025 Team Status: Inactive Member Role/Relationship Status Dates Meena VIEIRA MD Primary Care Provider Active Start: May 08, 2025 End: May 08, 2025 Meena VIEIRA MD Referring Provider Active S tart: May 08, 2025 End: May 08, 2025 DAVIDSON Lomeli Attending Provider Active St art: May 08, 2025 End: May 08, 2025 Team Status: Inactive Member Role/Relationship Status Dates Meena VIEIRA MD Primary Care Provider Active Start: May 08, 2025 End: May 08, 2025 DAVIDSON Lomeli Attending Provider Active St art: May 08, 2025 End: May 08, 2025 DAVIDSON Lomeli Referring Provider Active St art: May 08, 2025 End: May 08, 2025 Team Status: Inactive Member Role/Relationship Status Dates Dr. Ras Levy DO Attending Provider Active Start: May 08, 2025 End: May 08, 2025 Dr. Ras Levy DO Emergency Provider Active Start: May 08, 2025 End: May 08, 2025 Dr. Meena Guerra MD Primary Care Provider Active Start: May 08, 2025 End: May 08, 2025 Team Status: Inactive Member Role/Relationship Status Dates Dr. Meena Guerra MD Primary Care Provider Active Start: May 15, 2025 End: May 20, 2025 Dr. Meena Guerra MD Referring Provider Active Start: May 15, 2025 End: May 20, 2025 Ann Slater NP, RESIN MAKER-C Attending Provider Active Start: May 15, 2025 End: May 20, 2025 Team Status: Active Member Role/Relationship Status Dates Dr. Meena Guerra MD Primary Care Provider Active Start: May 15, 2025 Dr. Meena Guerra MD Referring Provider Active Start: May 15, 2025 Ann Slater RESIN MAKER, RESIN MAKER-C Attending Provider Active Start: May 15, 2025 Ann Slater RESIN MAKER, RESIN MAKER-C Other Provider Active S tart: May 15, 2025 Job Spotter Relationship Specialty Start Date End Date Meena Guerra MD [address] [facility] [address] PCP - General Internal Medicine 11/29/16 Jose Arreola APRN.MENTAL HEALTH CASE MANAGER [address] [facility] [place] [address] Grain Trader Internal Medicine 10/28/24 Stacey Lopez RN [address] [place], [place] [id number] Primary Care Collection Systems Worker Internal Medicine 05/06/25 Job Spotter Relationship Specialty Start Date End Date Meena Guerra MD [address] [facility] [address] PCP - General Internal Medicine 11/29/16 Jose Arreola APRN.MENTAL HEALTH CASE MANAGER [address] [facility] [place] [address] Grain Trader Internal Medicine 10/28/24 Stacey Lopez RN [address] [place], [place] [id number] Primary Care Collection Systems Worker Internal Medicine 05/06/25 05/21/25 Job Spotter Relationship Specialty Start Date End Date Meena Guerra MD [address] [facility] [address] PCP - General Internal Medicine 11/29/16 Jose Arreola APRN.MENTAL HEALTH CASE MANAGER [address] [facility] [place] [address] Grain Trader Internal Medicine 10/28/24 Stacey Lopez RN [address] [place], [place] [id number] Primary Care Collection Systems Worker Internal Medicine 05/06/25 05/21/25 Job Spotter Relationship Specialty Start Date End Date Meena Guerra MD [address] [facility] [address] PCP - General Internal Medicine 11/29/16 Jose Arreola APRN.MENTAL HEALTH CASE MANAGER [address] [facility] [place] [address] Grain Trader Internal Medicine 10/28/24 Job Spotter Relationship Specialty Start Date End Date Meena Guerra MD [address] [facility] [place] [address] PCP - General Internal Medicine 11/29/16 Jose Arreola APRN.MENTAL HEALTH CASE MANAGER [address] [facility] [place] [place] [address] Grain Trader Internal Medicine 10/28/24 Senait Waggoner RN [address] [place] [address] Primary Care Collection Systems Worker 05/28/25 Job Spotter Relationship Specialty Start Date End Date Meena Guerra MD [address] [facility] [place] [address] PCP - General Internal Medicine 11/29/16 Jose Arreola APRN.MENTAL HEALTH CASE MANAGER [address] [facility] [place] [place] [address] Grain Trader Internal Medicine 10/28/24 Senait Waggoner RN [address] [place], [place] [id number] Primary Care Collection Systems Worker 05/28/25 Job Spotter Relationship Specialty Start Date End Date Meena Guerra MD [address] [facility] [place] [address] PCP - General Internal Medicine 11/29/16 Jose Arreola APRN.MENTAL HEALTH CASE MANAGER [address] [facility] [place] [address] Grain Trader Internal Medicine 10/28/24 Senait Waggoner, BASIL [address] [place], [place] [id number] Primary Care Collection Systems Worker 05/28/25 Job Spotter Relationship Specialty Start Date End Date Meena Guerra MD [address] [facility] [place] [address] PCP - General Internal Medicine 11/29/16 Jose Arreola APRN.MENTAL HEALTH CASE MANAGER [address] [facility] [place] [place] [address] Grain Trader Internal Medicine 10/28/24 Senait Waggoner RN [address] [place] [address] Primary Care Collection Systems Worker 05/28/25 Job Spotter Relationship Specialty Start Date End Date Meena Guerra MD [address] [facility] [place] [address] PCP - General Internal Medicine 11/29/16 Jose Arreola APRN.MENTAL HEALTH CASE MANAGER [address] [facility] [place] [address] Grain Trader Internal Medicine 10/28/24 Senait Waggoner RN [address] [place], [place] [id number] Primary Care Collection Systems Worker 05/28/25 Team Status: Inactive Member Role/Relationship Status Dates Dr. Nathan Castanon , DO Emergency Provider Activ e Start: April 16, 2025 End: April 26, 2025 Dr. Ras Blas DO Admit Provider Active Star t: April 16, 2025 End: April 26, 2025 Dr. Ras Blas DO Referring Provider Active Start: April 16, 2025 End: April 26, 2025 Dr. Ras Blas DO Other Provider Active Star t: April 16, 2025 End: April 26, 2025 Dr. Amado Bailey MD Attending Provider Active Start: April 16, 2025 End: April 26, 2025 Ras Childress Primary Care Provider Active Sta rt: April 16, 2025 End: April 26, 2025 Dr. Koki Mcnulty MD Other Provider Active Sta rt: April 16, 2025 End: April 26, 2025 Dr. Migel Akins MD Other Provider Active Star t: April 16, 2025 End: April 26, 2025 Dr. Oscar Parmar MD Other Provider Active Star t: April 16, 2025 End: April 26, 2025 Dr. Nagi Martin MD Other Provider Active S tart: April 16, 2025 End: April 26, 2025 Dr. Jae Wong DO Other Provider Active Start : April 16, 2025 End: April 26, 2025 Dr. Yang Rogers MD Other Provider Active Start : April 16, 2025 End: April 26, 2025 Dr. Mason Rodriguez DO Other Provider Active St art: April 16, 2025 End: April 26, 2025 Dr. Franko Shaw MD Other Provider Active Star t: April 16, 2025 End: April 26, 2025 Dr. Rich Hand DO Other Provider Active Start: April 16, 2025 End: April 26, 2025 Dr. Aurora Huerta MD Other Provider Active Star t: April 16, 2025 End: April 26, 2025 Dr. Reji Aguilar MD Other Provider Active Start: April 16, 2025 End: April 26, 2025 Dr. Eric Stanford MD Other Provider Active Star t: April 16, 2025 End: April 26, 2025 Dr. Babak Kilpatrick MD Other Provider Active Start: April 16, 2025 End: April 26, 2025 Dr. Ten Turner MD Other Provider Active St art: April 16, 2025 End: April 26, 2025 Dr. Claudia Gomes MD Other Provider Active Start: April 16, 2025 End: April 26, 2025 Dr. Roger Murphy MD Other Provider Active Sta rt: April 16, 2025 End: April 26, 2025 Dr. Nitish Monsivais MD Other Provider Active St art: April 16, 2025 End: April 26, 2025 Dr. Mary Lang MD Other Provider Active Sta rt: April 16, 2025 End: April 26, 2025 Dr. Gustavo Avila MD Other Provider Active St art: April 16, 2025 End: April 26, 2025 Dr. Darien Barry MD Other Provider Active Start: April 16, 2025 End: April 26, 2025 Dr. Amado Cortez MD Other Provider Active Sta rt: April 16, 2025 End: April 26, 2025 Dr. Heron Sosa MD Other Provider Active Start: April 16, 2025 End: April 26, 2025 Dr. Gaudencio Garrison MD Other Provider Active Start : April 16, 2025 End: April 26, 2025 Dr. Edward Le MD Other Provider Active Star t: April 16, 2025 End: April 26, 2025 Dr. Kayla Fields MD Other Provider Active St art: April 16, 2025 End: April 26, 2025 Dr. Aubrey De Luna MD Other Provider Active St art: April 16, 2025 End: April 26, 2025 Dr. Melissa Garcia MD Other Provider Active Start: April 16, 2025 End: April 26, 2025 Team Status: Active Member Role/Relationship Status Dates Dr. Meena Guerra MD Primary Care Provider Active Start: April 16, 2025 Dr. Nathan Castanon , Emergency Provider Activ e Start: April 16, 2025 Dr. Ras Blas DO Admit Provider Active Star t: April 16, 2025 Dr. Ras Blas , Attending Provider Active Start: April 16, 2025 Dr. Ras Blas DO Other Provider Active Star t: April 16, 2025 Team Status: Active Member Role/Relationship Status Dates Dr. Meena Guerra MD Primary Care Provider Active Start: April 16, 2025 Dr. Edward Le MD Attending Provider Active Start: April 16, 2025 Team Status: Active Member Role/Relationship Status Dates Dr. Nathan Castanon DO Emergency Provider Activ e Start: April 17, 2025 Dr. Ras Blas DO Admit Provider Active Star t: April 17, 2025 Dr. Ras Blas , DO Other Provider Active Star t: April 17, 2025 Dr. Amado Bailey MD Attending Provider Active Start: April 17, 2025 Dr. Amado Bailey MD Other Provider Active Star t: April 17, 2025 Rasomer Childress Primary Care Provider Active Sta rt: April 17, 2025 Dr. Melissa Garcia MD Other Provider Active Start: April 17, 2025 Team Status: Active Member Role/Relationship Status Dates Dr. Nathan Castanon DO Emergency Provider Activ e Start: April 18, 2025 Dr. Ras Blas DO Admit Provider Active Star t: April 18, 2025 Dr. Ras Blas DO Other Provider Active Star t: April 18, 2025 Dr. Amado Bailey MD Attending Provider Active Start: April 18, 2025 Dr. Amado Bailey MD Other Provider Active Star t: April 18, 2025 Ras Childress Primary Care Provider Active Sta rt: April 18, 2025 Dr. Melissa Garcia MD Other Provider Active Start: April 18, 2025 Team Status: Active Member Role/Relationship Status Dates Dr. Nathan Castanon DO Emergency Provider Activ e Start: April 18, 2025 Dr. Ras Blas DO Admit Provider Active Star t: April 18, 2025 Dr. Ras Blas DO Referring Provider Active Start: April 18, 2025 Dr. Ras Blas DO Other Provider Active Star t: April 18, 2025 Dr. Amado Bailey MD Other Provider Active Star t: April 18, 2025 Ras Childress Primary Care Provider Active Sta rt: April 18, 2025 Dr. Melissa Garcia MD Other Provider Active Start: April 18, 2025 Dr. Edward Le MD Attending Provider Active Start: April 18, 2025 Dr. Edward Le MD Other Provider Active Star t: April 18, 2025 Team Status: Active Member Role/Relationship Status Dates Dr. Natahn Castanon , DO Emergency Provider Activ e Start: April 19, 2025 Dr. Ras Blas , DO Admit Provider Active Star t: April 19, 2025 Dr. Ras Blas DO Other Provider Active Star t: April 19, 2025 Dr. Amado Bailey MD Attending Provider Active Start: April 19, 2025 Dr. Amado Bailey MD Other Provider Active Star t: April 19, 2025 Ras Childress Primary Care Provider Active Sta rt: April 19, 2025 Dr. Melissa Garcia MD Other Provider Active Start: April 19, 2025 Dr. Edward Le MD Other Provider Active Star t: April 19, 2025 Team Status: Active Member Role/Relationship Status Dates Dr. Nathan Castanon , DO Emergency Provider Activ e Start: April 20, 2025 Dr. Ras Blas , DO Admit Provider Active Star t: April 20, 2025 Dr. Ras Blas DO Other Provider Active Star t: April 20, 2025 Dr. Amado Bailey MD Attending Provider Active Start: April 20, 2025 Dr. Amado Bailey MD Other Provider Active Star t: April 20, 2025 Ras Childress Primary Care Provider Active Sta rt: April 20, 2025 Dr. Melissa Garcia MD Other Provider Active Start: April 20, 2025 Dr. Edward Le MD Other Provider Active Star t: April 20, 2025 Team Status: Active Member Role/Relationship Status Dates Dr. Nathan Castanon DO Emergency Provider Activ e Start: April 21, 2025 Dr. Ras Blas DO Admit Provider Active Star t: April 21, 2025 Dr. Ras Blas DO Other Provider Active Star t: April 21, 2025 Dr. Amado Bailey MD Attending Provider Active Start: April 21, 2025 Dr. Amado Bailey MD Other Provider Active Star t: April 21, 2025 Ras Derrick Da Silvas Primary Care Provider Active Sta rt: April 21, 2025 Dr. Edward Le MD Other Provider Active Star t: April 21, 2025 Dr. Melissa Garcia MD Other Provider Active Start: April 21, 2025 Dr. Aubrey De Luna MD Other Provider Active St art: April 21, 2025 Team Status: Active Member Role/Relationship Status Dates Dr. Nathan Castanon DO Emergency Provider Activ e Start: April 21, 2025 Dr. Ras Blas DO Admit Provider Active Star t: April 21, 2025 Dr. Rsa Blas DO Referring Provider Active Start: April 21, 2025 Dr. Ras Blas DO Other Provider Active Star t: April 21, 2025 Dr. Amado Bailey MD Other Provider Active Star t: April 21, 2025 Ras Derrick Childress Primary Care Provider Active Sta rt: April 21, 2025 Dr. Edward Le MD Other Provider Active Star t: April 21, 2025 Dr. Melissa Garcia MD Other Provider Active Start: April 21, 2025 Dr. Aubrey De Luna MD Attending Provider Active Start: April 21, 2025 Dr. Aubrey De Luna MD Other Provider Active St art: April 21, 2025 Team Status: Active Member Role/Relationship Status Dates Dr. Nathan Castanon DO Emergency Provider Activ e Start: April 22, 2025 Dr. Ras Blas DO Admit Provider Active Star t: April 22, 2025 Dr. Ras Blas DO Other Provider Active Star t: April 22, 2025 Dr. Amado Bailey MD Attending Provider Active Start: April 22, 2025 Dr. Amado Bailey MD Other Provider Active Star t: April 22, 2025 Ras Derrick Childress Primary Care Provider Active Sta rt: April 22, 2025 Dr. Edward Le MD Other Provider Active Star t: April 22, 2025 Dr. Melissa Garcia MD Other Provider Active Start: April 22, 2025 Dr. Aubrey De Luna MD Other Provider Active St art: April 22, 2025 Team Status: Active Member Role/Relationship Status Dates Dr. Nathan Castanon DO Emergency Provider Activ e Start: April 22, 2025 Dr. Ras Blas DO Admit Provider Active Star t: April 22, 2025 Dr. Ras Blas DO Referring Provider Active Start: April 22, 2025 Dr. Ras Blas DO Other Provider Active Star t: April 22, 2025 Dr. Amado Bailey MD Other Provider Active Star t: April 22, 2025 Ras Childress Primary Care Provider Active Sta rt: April 22, 2025 Dr. Edward Le MD Other Provider Active Star t: April 22, 2025 Dr. Melissa Garcia MD Other Provider Active Start: April 22, 2025 Dr. Aubrey De Luna MD Other Provider Active St art: April 22, 2025 Dr. Koki Mcnulty MD Other Provider Active Sta rt: April 22, 2025 Dr. Migel Akins MD Other Provider Active Star t: April 22, 2025 Dr. Oscar Parmar MD Other Provider Active Star t: April 22, 2025 Dr. Nagi Martin MD Other Provider Active S tart: April 22, 2025 Dr. Jae Wong DO Attending Provider Active S tart: April 22, 2025 Dr. Jae Wong DO Other Provider Active Start : April 22, 2025 Dr. Yang Rogers MD Other Provider Active Start : April 22, 2025 Dr. Mason Rodriguez DO Other Provider Active St art: April 22, 2025 Dr. Franko Shaw MD Other Provider Active Star t: April 22, 2025 Dr. Rich Hand DO Other Provider Active Start: April 22, 2025 Dr. Aurora Huerta MD Other Provider Active Star t: April 22, 2025 Dr. Reji Aguilar MD Other Provider Active Start: April 22, 2025 Dr. Eric Stanford MD Other Provider Active Star t: April 22, 2025 Dr. Babak Kilpatrick MD Other Provider Active Start: April 22, 2025 Dr. Ten Turner MD Other Provider Active St art: April 22, 2025 Dr. Claudia Gomes MD Other Provider Active Start: April 22, 2025 Dr. Roger Murphy MD Other Provider Active Sta rt: April 22, 2025 Dr. Nitish Monsivais MD Other Provider Active St art: April 22, 2025 Dr. Mary Lang MD Other Provider Active Sta rt: April 22, 2025 Dr. Gustavo Avila MD Other Provider Active St art: April 22, 2025 Dr. Darien Barry MD Other Provider Active Start: April 22, 2025 Dr. Amado Cortez MD Other Provider Active Sta rt: April 22, 2025 Dr. Heron Sosa MD Other Provider Active Start: April 22, 2025 Dr. Gaudencio Garrison MD Other Provider Active Start : April 22, 2025 Team Status: Active Member Role/Relationship Status Dates Dr. Nathan Castanon DO Emergency Provider Activ e Start: April 22, 2025 Dr. Ras Blas DO Admit Provider Active Star t: April 22, 2025 Dr. Ras Blas DO Referring Provider Active Start: April 22, 2025 Dr. Ras Blas DO Other Provider Active Star t: April 22, 2025 Dr. Amado Bailey MD Other Provider Active Star t: April 22, 2025 Ras Childress Primary Care Provider Active Sta rt: April 22, 2025 Dr. Edward Le MD Other Provider Active Star t: April 22, 2025 Dr. Melissa Garcia MD Other Provider Active Start: April 22, 2025 Dr. Aubrey De Luna MD Other Provider Active St art: April 22, 2025 Dr. Koki Mcnulty MD Other Provider Active Sta rt: April 22, 2025 Dr. Migel Akins MD Other Provider Active Star t: April 22, 2025 Dr. Oscar Parmar MD Other Provider Active Star t: April 22, 2025 Dr. Nagi Martin MD Other Provider Active S tart: April 22, 2025 Dr. Jae Wong DO Other Provider Active Start : April 22, 2025 Dr. Yang Rogers MD Other Provider Active Start : April 22, 2025 Dr. Mason Rodriguez , Other Provider Active St art: April 22, 2025 Dr. Franko Shaw MD Other Provider Active Star t: April 22, 2025 Dr. Rich Hand DO Other Provider Active Start: April 22, 2025 Dr. Aurora Huerta MD Other Provider Active Star t: April 22, 2025 Dr. Reji Aguilar MD Other Provider Active Start: April 22, 2025 Dr. Eric Stanford MD Other Provider Active Star t: April 22, 2025 Dr. Babak Kilpatrick MD Other Provider Active Start: April 22, 2025 Dr. Ten Turner MD Other Provider Active St art: April 22, 2025 Dr. Claudia Gomes MD Other Provider Active Start: April 22, 2025 Dr. Roger Murphy MD Other Provider Active Sta rt: April 22, 2025 Dr. Nitish Monsivais MD Other Provider Active St art: April 22, 2025 Dr. Mary Lang MD Other Provider Active Sta rt: April 22, 2025 Dr. Gustavo Avila MD Other Provider Active St art: April 22, 2025 Dr. Darien Barry MD Other Provider Active Start: April 22, 2025 Dr. Amado Cortez MD Other Provider Active Sta rt: April 22, 2025 Dr. Heron Sosa MD Other Provider Active Start: April 22, 2025 Dr. Gaudencio Garrison MD Other Provider Active Start : April 22, 2025 Dr. Kayla Fields MD Attending Provider Active Start: April 22, 2025 Dr. Kayla Fields MD Other Provider Active St art: April 22, 2025 Team Status: Active Member Role/Relationship Status Dates Dr. Nathan Castanon DO Emergency Provider Activ e Start: April 23, 2025 Dr. Ras Blas DO Admit Provider Active Star t: April 23, 2025 Dr. Ras Blas DO Other Provider Active Star t: April 23, 2025 Dr. Amado Bailey MD Attending Provider Active Start: April 23, 2025 Dr. Amado Bailey MD Other Provider Active Star t: April 23, 2025 Ras Childress Primary Care Provider Active Sta rt: April 23, 2025 Dr. Edward Le MD Other Provider Active Star t: April 23, 2025 Dr. Melissa Garcia MD Other Provider Active Start: April 23, 2025 Dr. Aubrey De Luna MD Other Provider Active St art: April 23, 2025 Dr. Koki Mcnulty MD Other Provider Active Sta rt: April 23, 2025 Dr. Migel Akins MD Other Provider Active Star t: April 23, 2025 Dr. Oscar Parmar MD Other Provider Active Star t: April 23, 2025 Dr. Nagi Martin MD Other Provider Active S tart: April 23, 2025 Dr. Jae Wong , Other Provider Active Start : April 23, 2025 Dr. Yang Rogers MD Other Provider Active Start : April 23, 2025 Dr. Mason Rodriguez , Other Provider Active St art: April 23, 2025 Dr. Franko Shaw MD Other Provider Active Star t: April 23, 2025 Dr. Rich Hand , Other Provider Active Start: April 23, 2025 Dr. Aurora Huerta MD Other Provider Active Star t: April 23, 2025 Dr. Reji Aguilar MD Other Provider Active Start: April 23, 2025 Dr. Eric Stanford MD Other Provider Active Star t: April 23, 2025 Dr. Babak Kilpatrick MD Other Provider Active Start: April 23, 2025 Dr. Ten Turner MD Other Provider Active St art: April 23, 2025 Dr. Claudia Gomes MD Other Provider Active Start: April 23, 2025 Dr. Roger Murphy MD Other Provider Active Sta rt: April 23, 2025 Dr. Nitish Monsivais MD Other Provider Active St art: April 23, 2025 Dr. Mary Lang MD Other Provider Active Sta rt: April 23, 2025 Dr. Gustavo Avila MD Other Provider Active St art: April 23, 2025 Dr. Darien Barry MD Other Provider Active Start: April 23, 2025 Dr. Amado Cortez MD Other Provider Active Sta rt: April 23, 2025 Dr. Heron Sosa MD Other Provider Active Start: April 23, 2025 Dr. Gaudencio Garrison MD Other Provider Active Start : April 23, 2025 Dr. Kayla Fields MD Other Provider Active St art: April 23, 2025 Team Status: Active Member Role/Relationship Status Dates Dr. Nathan Castanon , Emergency Provider Activ e Start: April 23, 2025 Dr. Ras Blas , DO Admit Provider Active Star t: April 23, 2025 Dr. Ras Blas DO Referring Provider Active Start: April 23, 2025 Dr. Ras Blas DO Other Provider Active Star t: April 23, 2025 Dr. Amado Bailey MD Other Provider Active Star t: April 23, 2025 Ras Childress Primary Care Provider Active Sta rt: April 23, 2025 Dr. Edward Le MD Other Provider Active Star t: April 23, 2025 Dr. Melissa Garcia MD Other Provider Active Start: April 23, 2025 Dr. Aubrey De Luna MD Other Provider Active St art: April 23, 2025 Dr. Koki Mcnulty MD Other Provider Active Sta rt: April 23, 2025 Dr. Migel Akins MD Other Provider Active Star t: April 23, 2025 Dr. Oscar Parmar MD Other Provider Active Star t: April 23, 2025 Dr. Nagi Martin MD Other Provider Active S tart: April 23, 2025 Dr. Jae Wong DO Other Provider Active Start : April 23, 2025 Dr. Yang Rogers MD Other Provider Active Start : April 23, 2025 Dr. Mason Rodriguez DO Other Provider Active St art: April 23, 2025 Dr. Franko Shaw MD Other Provider Active Star t: April 23, 2025 Dr. Rich Hand DO Other Provider Active Start: April 23, 2025 Dr. Aurora Huerta MD Other Provider Active Star t: April 23, 2025 Dr. Reji Aguilar MD Other Provider Active Start: April 23, 2025 Dr. Eric Stanford MD Other Provider Active Star t: April 23, 2025 Dr. Babak Kilpatrick MD Other Provider Active Start: April 23, 2025 Dr. Ten Turner MD Other Provider Active St art: April 23, 2025 Dr. Claudia Gomes MD Other Provider Active Start: April 23, 2025 Dr. Roger Murphy MD Other Provider Active Sta rt: April 23, 2025 Dr. Nitish Monsivais MD Other Provider Active St art: April 23, 2025 Dr. Mary Lang MD Other Provider Active Sta rt: April 23, 2025 Dr. Gustavo Avila MD Other Provider Active St art: April 23, 2025 Dr. Darien Barry MD Other Provider Active Start: April 23, 2025 Dr. Amado Cortez MD Other Provider Active Sta rt: April 23, 2025 Dr. Heron Sosa MD Other Provider Active Start: April 23, 2025 Dr. Gaudencio Garrison MD Other Provider Active Start : April 23, 2025 Dr. Kayla Fields MD Attending Provider Active Start: April 23, 2025 Dr. Kayla Fields MD Other Provider Active St art: April 23, 2025 Team Status: Active Member Role/Relationship Status Dates Dr. Nathan Castanon DO Emergency Provider Activ e Start: April 23, 2025 Dr. Ras Blas DO Admit Provider Active Star t: April 23, 2025 Dr. Ras Blas DO Referring Provider Active Start: April 23, 2025 Dr. Ras Blas DO Other Provider Active Star t: April 23, 2025 Dr. Amado Bailey MD Other Provider Active Star t: April 23, 2025 Ras Childress Primary Care Provider Active Sta rt: April 23, 2025 Dr. Edward Le MD Other Provider Active Star t: April 23, 2025 Dr. Melissa Garcia MD Other Provider Active Start: April 23, 2025 Dr. Aubrey De Luna MD Other Provider Active St art: April 23, 2025 Dr. Koki Mcnulty MD Other Provider Active Sta rt: April 23, 2025 Dr. Migel Akins MD Other Provider Active Star t: April 23, 2025 Dr. Oscar Parmar MD Other Provider Active Star t: April 23, 2025 Dr. Nagi Martin MD Other Provider Active S tart: April 23, 2025 Dr. Jae Wong DO Attending Provider Active S tart: April 23, 2025 Dr. Jae Wong DO Other Provider Active Start : April 23, 2025 Dr. Yang Rogers MD Other Provider Active Start : April 23, 2025 Dr. Mason Rodriguez DO Other Provider Active St art: April 23, 2025 Dr. Franko Shaw MD Other Provider Active Star t: April 23, 2025 Dr. Rich Hand DO Other Provider Active Start: April 23, 2025 Dr. Aurora Huerta MD Other Provider Active Star t: April 23, 2025 Dr. Reji Aguilar MD Other Provider Active Start: April 23, 2025 Dr. Eric Stanford MD Other Provider Active Star t: April 23, 2025 Dr. Babak Kilpatrick MD Other Provider Active Start: April 23, 2025 Dr. Ten Turner MD Other Provider Active St art: April 23, 2025 Dr. Claudia Gomes MD Other Provider Active Start: April 23, 2025 Dr. Roger Murphy MD Other Provider Active Sta rt: April 23, 2025 Dr. Nitish Monsivais MD Other Provider Active St art: April 23, 2025 Dr. Mary Lang MD Other Provider Active Sta rt: April 23, 2025 Dr. Gustavo Avila MD Other Provider Active St art: April 23, 2025 Dr. Darien Barry MD Other Provider Active Start: April 23, 2025 Dr. Amado Cortez MD Other Provider Active Sta rt: April 23, 2025 Dr. Heron Sosa MD Other Provider Active Start: April 23, 2025 Dr. Gaudencio Garrison MD Other Provider Active Start : April 23, 2025 Dr. Kayla Fields MD Other Provider Active St art: April 23, 2025 Team Status: Active Member Role/Relationship Status Dates Dr. Nathan Castanon DO Emergency Provider Activ e Start: April 23, 2025 Dr. Ras Blas DO Admit Provider Active Star t: April 23, 2025 Dr. Ras Blas DO Referring Provider Active Start: April 23, 2025 Dr. Ras Blas DO Other Provider Active Star t: April 23, 2025 Dr. Amado Bailey MD Other Provider Active Star t: April 23, 2025 Ras Childress Primary Care Provider Active Sta rt: April 23, 2025 Dr. Edward Le MD Other Provider Active Star t: April 23, 2025 Dr. Melissa Garcia MD Other Provider Active Start: April 23, 2025 Dr. Aubrey De Luna MD Other Provider Active St art: April 23, 2025 Dr. Koki Mcnulty MD Other Provider Active Sta rt: April 23, 2025 Dr. Migel Akins MD Other Provider Active Star t: April 23, 2025 Dr. Oscar Parmar MD Other Provider Active Star t: April 23, 2025 Dr. Nagi Martin MD Other Provider Active S tart: April 23, 2025 Dr. Jae Wong , Other Provider Active Start : April 23, 2025 Dr. Yang Rogers MD Other Provider Active Start : April 23, 2025 Dr. Mason Rodriguez DO Other Provider Active St art: April 23, 2025 Dr. Franko Shaw MD Other Provider Active Star t: April 23, 2025 Dr. Rich Hand DO Other Provider Active Start: April 23, 2025 Dr. Aurora Huerta MD Other Provider Active Star t: April 23, 2025 Dr. Reji Aguilar MD Other Provider Active Start: April 23, 2025 Dr. Eric Stanford MD Other Provider Active Star t: April 23, 2025 Dr. Babak Kilpatrick MD Other Provider Active Start: April 23, 2025 Dr. Ten Turner MD Other Provider Active St art: April 23, 2025 Dr. Claudia Gomes MD Other Provider Active Start: April 23, 2025 Dr. Roger Murphy MD Other Provider Active Sta rt: April 23, 2025 Dr. Nitish Monsivais MD Other Provider Active St art: April 23, 2025 Dr. Mary Lang MD Other Provider Active Sta rt: April 23, 2025 Dr. Gustavo Avila MD Other Provider Active St art: April 23, 2025 Dr. Darien Barry MD Other Provider Active Start: April 23, 2025 Dr. Amado Cortez MD Other Provider Active Sta rt: April 23, 2025 Dr. Heron Sosa MD Other Provider Active Start: April 23, 2025 Dr. Gaudencio Garrison MD Other Provider Active Start : April 23, 2025 Dr. Kayla Fields MD Other Provider Active St art: April 23, 2025 Mckayla CEDEÑO PA-C Attending Provider Active Start: April 23, 2025 Team Status: Active Member Role/Relationship Status Dates Dr. Nathan Castanon DO Emergency Provider Activ e Start: April 24, 2025 Dr. Ras Blas , DO Admit Provider Active Star t: April 24, 2025 Dr. Ras Blas , DO Other Provider Active Star t: April 24, 2025 Dr. Amado Bailey MD Attending Provider Active Start: April 24, 2025 Dr. Amado Bailey MD Other Provider Active Star t: April 24, 2025 Ras Childress Primary Care Provider Active Sta rt: April 24, 2025 Dr. Edward Le MD Other Provider Active Star t: April 24, 2025 Dr. Melissa Garcia MD Other Provider Active Start: April 24, 2025 Dr. uAbrey De Luna MD Other Provider Active St art: April 24, 2025 Dr. Koki Mcnulty MD Other Provider Active Sta rt: April 24, 2025 Dr. Migel Akins MD Other Provider Active Star t: April 24, 2025 Dr. Oscar Parmar MD Other Provider Active Star t: April 24, 2025 Dr. Nagi Martin MD Other Provider Active S tart: April 24, 2025 Dr. Jae Wong , Other Provider Active Start : April 24, 2025 Dr. Yang Rogers MD Other Provider Active Start : April 24, 2025 Dr. Mason Rodriguez , Other Provider Active St art: April 24, 2025 Dr. Franko Shaw MD Other Provider Active Star t: April 24, 2025 Dr. Rich Hand DO Other Provider Active Start: April 24, 2025 Dr. Aurora Huerta MD Other Provider Active Star t: April 24, 2025 Dr. Reji Aguilar MD Other Provider Active Start: April 24, 2025 Dr. Eric Stanford MD Other Provider Active Star t: April 24, 2025 Dr. Babak Kilpatrick MD Other Provider Active Start: April 24, 2025 Dr. Ten Turner MD Other Provider Active St art: April 24, 2025 Dr. Claudia Gomes MD Other Provider Active Start: April 24, 2025 Dr. Roger Murphy MD Other Provider Active Sta rt: April 24, 2025 Dr. Nitish Monsivais MD Other Provider Active St art: April 24, 2025 Dr. Mary Lang MD Other Provider Active Sta rt: April 24, 2025 Dr. Gustavo Avila MD Other Provider Active St art: April 24, 2025 Dr. Darien Barry MD Other Provider Active Start: April 24, 2025 Dr. Amado Cortez MD Other Provider Active Sta rt: April 24, 2025 Dr. Heron Sosa MD Other Provider Active Start: April 24, 2025 Dr. Gaudencio Garrison MD Other Provider Active Start : April 24, 2025 Dr. Kayla Fields MD Other Provider Active St art: April 24, 2025 Team Status: Active Member Role/Relationship Status Dates Dr. Nathan Castanon DO Emergency Provider Activ e Start: April 24, 2025 Dr. Ras Blas DO Admit Provider Active Star t: April 24, 2025 Dr. Ras Blas DO Referring Provider Active Start: April 24, 2025 Dr. Ras Blas DO Other Provider Active Star t: April 24, 2025 Dr. Amado Bailey MD Other Provider Active Star t: April 24, 2025 Ras Childress Primary Care Provider Active Sta rt: April 24, 2025 Dr. Edward Le MD Other Provider Active Star t: April 24, 2025 Dr. Melissa Garcia MD Other Provider Active Start: April 24, 2025 Dr. Aubrey De Luna MD Other Provider Active St art: April 24, 2025 Dr. Koki Mcnulty MD Other Provider Active Sta rt: April 24, 2025 Dr. Migel Akins MD Other Provider Active Star t: April 24, 2025 Dr. Oscar Parmar MD Other Provider Active Star t: April 24, 2025 Dr. Nagi Martin MD Other Provider Active S tart: April 24, 2025 Dr. Jae Wong , Other Provider Active Start : April 24, 2025 Dr. Yang Rogers MD Other Provider Active Start : April 24, 2025 Dr. Mason Rodriguez , Other Provider Active St art: April 24, 2025 Dr. Franko Shaw MD Other Provider Active Star t: April 24, 2025 Dr. Rich Hand , Other Provider Active Start: April 24, 2025 Dr. Aurora Huerta MD Other Provider Active Star t: April 24, 2025 Dr. Reji Aguilar MD Other Provider Active Start: April 24, 2025 Dr. Eric Stanford MD Other Provider Active Star t: April 24, 2025 Dr. Babak Kilpatrick MD Other Provider Active Start: April 24, 2025 Dr. Ten Turner MD Other Provider Active St art: April 24, 2025 Dr. Claudia Gomes MD Other Provider Active Start: April 24, 2025 Dr. Roger Murphy MD Other Provider Active Sta rt: April 24, 2025 Dr. Nitish Monsivais MD Other Provider Active St art: April 24, 2025 Dr. Mary Lang MD Other Provider Active Sta rt: April 24, 2025 Dr. Gustavo Avila MD Other Provider Active St art: April 24, 2025 Dr. Darien Barry MD Other Provider Active Start: April 24, 2025 Dr. Amado Cortez MD Other Provider Active Sta rt: April 24, 2025 Dr. Heron Sosa MD Other Provider Active Start: April 24, 2025 Dr. Gaudencio Garrison MD Other Provider Active Start : April 24, 2025 Dr. Kayla Fields MD Attending Provider Active Start: April 24, 2025 Dr. Kayla Fields MD Other Provider Active St art: April 24, 2025 Team Status: Active Member Role/Relationship Status Dates Dr. Nathan Castanon DO Emergency Provider Activ e Start: April 25, 2025 Dr. Ras Blas DO Admit Provider Active Star t: April 25, 2025 Dr. Ras Blas DO Other Provider Active Star t: April 25, 2025 Dr. Amado Bailey MD Attending Provider Active Start: April 25, 2025 Dr. Amado Bailey MD Other Provider Active Star t: April 25, 2025 Ras Childress Primary Care Provider Active Sta rt: April 25, 2025 Dr. Koki Mcnulty MD Other Provider Active Sta rt: April 25, 2025 Dr. Migel Akins MD Other Provider Active Star t: April 25, 2025 Dr. Oscar Parmar MD Other Provider Active Star t: April 25, 2025 Dr. Nagi Martin MD Other Provider Active S tart: April 25, 2025 Dr. Jae Wong , Other Provider Active Start : April 25, 2025 Dr. Yang Rogers MD Other Provider Active Start : April 25, 2025 Dr. Mason Rodriguez , Other Provider Active St art: April 25, 2025 Dr. Franko Shaw MD Other Provider Active Star t: April 25, 2025 Dr. Rich Hand , Other Provider Active Start: April 25, 2025 Dr. Aurora Huerta MD Other Provider Active Star t: April 25, 2025 Dr. Reji Aguilar MD Other Provider Active Start: April 25, 2025 Dr. Eric Stanford MD Other Provider Active Star t: April 25, 2025 Dr. Babak Kilpatrick MD Other Provider Active Start: April 25, 2025 Dr. Ten Turner MD Other Provider Active St art: April 25, 2025 Dr. Claudia Gomes MD Other Provider Active Start: April 25, 2025 Dr. Roger Murphy MD Other Provider Active Sta rt: April 25, 2025 Dr. Nitish Monsivais MD Other Provider Active St art: April 25, 2025 Dr. Mary Lang MD Other Provider Active Sta rt: April 25, 2025 Dr. Gustavo Avila MD Other Provider Active St art: April 25, 2025 Dr. Darien Barry MD Other Provider Active Start: April 25, 2025 Dr. Amado Cortez MD Other Provider Active Sta rt: April 25, 2025 Dr. Heron Sosa MD Other Provider Active Start: April 25, 2025 Dr. Gaudencio Garrison MD Other Provider Active Start : April 25, 2025 Dr. Edward Le MD Other Provider Active Star t: April 25, 2025 Dr. Kayla Fields MD Other Provider Active St art: April 25, 2025 Dr. Aubrey De Luna MD Other Provider Active St art: April 25, 2025 Dr. Melissa Garcia MD Other Provider Active Start: April 25, 2025 Team Status: Active Member Role/Relationship Status Dates Dr. Nathan Castanon DO Emergency Provider Activ e Start: April 26, 2025 Dr. Ras Blas DO Admit Provider Active Star t: April 26, 2025 Dr. Ras Blas , DO Other Provider Active Star t: April 26, 2025 Dr. Amado Bailey MD Attending Provider Active Start: April 26, 2025 Dr. Amado Bailey MD Other Provider Active Star t: April 26, 2025 Ras Meza Childress Primary Care Provider Active Sta rt: April 26, 2025 Dr. Koki Mcnulty MD Other Provider Active Sta rt: April 26, 2025 Dr. Migel Akins MD Other Provider Active Star t: April 26, 2025 Dr. Oscar Parmar MD Other Provider Active Star t: April 26, 2025 Dr. Nagi Martin MD Other Provider Active S tart: April 26, 2025 Dr. Jae Wong , Other Provider Active Start : April 26, 2025 Dr. Yang Rogers MD Other Provider Active Start : April 26, 2025 Dr. Mason Rodriguez , Other Provider Active St art: April 26, 2025 Dr. Franko Shaw MD Other Provider Active Star t: April 26, 2025 Dr. Rich Hand , Other Provider Active Start: April 26, 2025 Dr. Aurora Huerta MD Other Provider Active Star t: April 26, 2025 Dr. Reji Aguilar MD Other Provider Active Start: April 26, 2025 Dr. Eric Stanford MD Other Provider Active Star t: April 26, 2025 Dr. Babak Kilpatrick MD Other Provider Active Start: April 26, 2025 Dr. Ten Turner MD Other Provider Active St art: April 26, 2025 Dr. Claudia Gomes MD Other Provider Active Start: April 26, 2025 Dr. Roger Murphy MD Other Provider Active Sta rt: April 26, 2025 Dr. Nitish Monsivais MD Other Provider Active St art: April 26, 2025 Dr. Mary Lang MD Other Provider Active Sta rt: April 26, 2025 Dr. Gustavo Avila MD Other Provider Active St art: April 26, 2025 Dr. Darien Barry MD Other Provider Active Start: April 26, 2025 Dr. Amado Cortez MD Other Provider Active Sta rt: April 26, 2025 Dr. Heron Sosa MD Other Provider Active Start: April 26, 2025 Dr. Gaudencio Garrison MD Other Provider Active Start : April 26, 2025 Dr. Edward Le MD Other Provider Active Star t: April 26, 2025 Dr. Kayla Fields MD Other Provider Active St art: April 26, 2025 Dr. Aubrey De Luna MD Other Provider Active St art: April 26, 2025 Dr. Melissa Garcia MD Other Provider Active Start: April 26, 2025 Team Status: Active Member Role/Relationship Status Dates Rasomer Da Silvas Primary Care Provider Active Sta rt: April 27, 2025 Dr. Sammy Guerrero DO Emergency Provider Active Start : April 27, 2025 Dr. Dayana Abel MD Attending Provider Active Start: April 27, 2025 Team Status: Inactive Member Role/Relationship Status Dates Dr. Sammy Guerrero DO Emergency Provider Active Start : April 27, 2025 End: May 03, 2025 Dr. Dayana Abel MD Admit Provider Active St art: April 27, 2025 End: May 03, 2025 Dr. Dayana Abel MD Other Provider Active St art: April 27, 2025 End: May 03, 2025 Dr. Ras Blas DO Attending Provider Active Start: April 27, 2025 End: May 03, 2025 Meena VIEIRA MD Primary Care Provider Active Start: April 27, 2025 End: May 03, 2025 Team Status: Active Member Role/Relationship Status Dates Ras Da Silvas Primary Care Provider Active Sta rt: April 27, 2025 Dr. Sammy Guerrero DO Emergency Provider Active Start : April 27, 2025 Dr. Dayana Abel MD Admit Provider Active St art: April 27, 2025 Dr. Dayana Abel MD Referring Provider Active Start: April 27, 2025 Dr. Dayana Abel MD Other Provider Active St art: April 27, 2025 Dr. Ras Blas DO Other Provider Active Star t: April 27, 2025 Dr. Reji Aguilar MD Other Provider Active Start: April 27, 2025 Dr. Darien Barry MD Other Provider Active Start: April 27, 2025 Dr. Oscar Parmar MD Other Provider Active Star t: April 27, 2025 Dr. Jae Wnog DO Other Provider Active Start : April 27, 2025 Dr. Amado Cortez MD Other Provider Active Sta rt: April 27, 2025 Dr. Gustavo Avila MD Other Provider Active St art: April 27, 2025 Dr. Nagi Martin MD Other Provider Active S tart: April 27, 2025 Dr. Claudia Gomes MD Other Provider Active Start: April 27, 2025 Dr. Yang Rogers MD Other Provider Active Start : April 27, 2025 Dr. Heron Sosa MD Other Provider Active Start: April 27, 2025 Dr. Gaudencio Garrison MD Other Provider Active Start : April 27, 2025 Dr. Aurora Huerta MD Other Provider Active Star t: April 27, 2025 Dr. Koki Mcnulty MD Other Provider Active Sta rt: April 27, 2025 Dr. Mary Lang MD Other Provider Active Sta rt: April 27, 2025 Dr. Eric Stanford MD Other Provider Active Star t: April 27, 2025 Dr. Nitish Monsivais MD Other Provider Active St art: April 27, 2025 Dr. Franko Shaw MD Other Provider Active Star t: April 27, 2025 Dr. Mason Rodriguez DO Other Provider Active St art: April 27, 2025 Dr. Babak Kilpatrick MD Other Provider Active Start: April 27, 2025 Dr. Ten Turner MD Other Provider Active St art: April 27, 2025 Dr. Rich Hand DO Other Provider Active Start: April 27, 2025 Dr. Migel Akins MD Other Provider Active Star t: April 27, 2025 Dr. Roger Murphy MD Other Provider Active Sta rt: April 27, 2025 Dr. Jayden Still DO Attending Provider Active Start: April 27, 2025 Team Status: Active Member Role/Relationship Status Dates Ras Childress Primary Care Provider Active Sta rt: April 28, 2025 Dr. Sammy Guerrero DO Emergency Provider Active Start : April 28, 2025 Dr. Dayana Abel MD Admit Provider Active St art: April 28, 2025 Dr. Dayana Abel MD Other Provider Active St art: April 28, 2025 Dr. Ras Blas DO Attending Provider Active Start: April 28, 2025 Dr. Ras Blas DO Other Provider Active Star t: April 28, 2025 Dr. Reji Aguilar MD Other Provider Active Start: April 28, 2025 Dr. Darien Barry MD Other Provider Active Start: April 28, 2025 Dr. Oscar Parmar MD Other Provider Active Star t: April 28, 2025 Dr. Jae Wong , Other Provider Active Start : April 28, 2025 Dr. Amado Cortez MD Other Provider Active Sta rt: April 28, 2025 Dr. Gustavo Avila MD Other Provider Active St art: April 28, 2025 Dr. Nagi Martin MD Other Provider Active S tart: April 28, 2025 Dr. Claudia Gomes MD Other Provider Active Start: April 28, 2025 Dr. Yang Rogers MD Other Provider Active Start : April 28, 2025 Dr. Heron Sosa MD Other Provider Active Start: April 28, 2025 Dr. Gaudencio Garrison MD Other Provider Active Start : April 28, 2025 Dr. Aurora Huerta MD Other Provider Active Star t: April 28, 2025 Dr. Koki Mcnulty MD Other Provider Active Sta rt: April 28, 2025 Dr. Mary Lang MD Other Provider Active Sta rt: April 28, 2025 Dr. Eric Stanford MD Other Provider Active Star t: April 28, 2025 Dr. Nitish Monsivais MD Other Provider Active St art: April 28, 2025 Dr. Franko Shaw MD Other Provider Active Star t: April 28, 2025 Dr. Maosn Rodriguez , Other Provider Active St art: April 28, 2025 Dr. Babak Kilpatrick MD Other Provider Active Start: April 28, 2025 Dr. Ten Turner MD Other Provider Active St art: April 28, 2025 Dr. Rich Hand DO Other Provider Active Start: April 28, 2025 Dr. Migel Akins MD Other Provider Active Star t: April 28, 2025 Dr. Roger Murphy MD Other Provider Active Sta rt: April 28, 2025 Team Status: Active Member Role/Relationship Status Dates Ras Childress Primary Care Provider Active Sta rt: April 29, 2025 Dr. Sammy Guerrero DO Emergency Provider Active Start : April 29, 2025 Dr. Dayana Abel MD Admit Provider Active St art: April 29, 2025 Dr. Dayana Abel MD Other Provider Active St art: April 29, 2025 Dr. Ras Blas DO Referring Provider Active Start: April 29, 2025 Dr. Ras Blas DO Other Provider Active Star t: April 29, 2025 Dr. Reji Aguilar MD Other Provider Active Start: April 29, 2025 Dr. Darien Barry MD Other Provider Active Start: April 29, 2025 Dr. Oscar Parmar MD Other Provider Active Star t: April 29, 2025 Dr. Jae Wong DO Attending Provider Active S tart: April 29, 2025 Dr. Jae Wong DO Other Provider Active Start : April 29, 2025 Dr. Amado Cortez MD Other Provider Active Sta rt: April 29, 2025 Dr. Gustavo Avila MD Other Provider Active St art: April 29, 2025 Dr. Nagi Martin MD Other Provider Active S tart: April 29, 2025 Dr. Claudia Gomes MD Other Provider Active Start: April 29, 2025 Dr. Yang Rogers MD Other Provider Active Start : April 29, 2025 Dr. Heron Sosa MD Other Provider Active Start: April 29, 2025 Dr. Gaudencio Garrison MD Other Provider Active Start : April 29, 2025 Dr. Aurora Huerta MD Other Provider Active Star t: April 29, 2025 Dr. Koki Mcnulty MD Other Provider Active Sta rt: April 29, 2025 Dr. Mary Lang MD Other Provider Active Sta rt: April 29, 2025 Dr. Eric Stanford MD Other Provider Active Star t: April 29, 2025 Dr. Nitish Monsivais MD Other Provider Active St art: April 29, 2025 Dr. Franko Shaw MD Other Provider Active Star t: April 29, 2025 Dr. Mason Rodriguez DO Other Provider Active St art: April 29, 2025 Dr. Babak Kilpatrick MD Other Provider Active Start: April 29, 2025 Dr. Ten Turner MD Other Provider Active St art: April 29, 2025 Dr. Rich Hand DO Other Provider Active Start: April 29, 2025 Dr. Migel Akins MD Other Provider Active Star t: April 29, 2025 Dr. Roger Murphy MD Other Provider Active Sta rt: April 29, 2025 Team Status: Active Member Role/Relationship Status Dates Ras Childress Primary Care Provider Active Sta rt: April 29, 2025 Dr. Sammy Guerrero , Emergency Provider Active Start : April 29, 2025 Dr. Dayana Abel MD Admit Provider Active St art: April 29, 2025 Dr. Dayana Abel MD Other Provider Active St art: April 29, 2025 Dr. Ras Blas DO Referring Provider Active Start: April 29, 2025 Dr. Ras Blas DO Other Provider Active Star t: April 29, 2025 Dr. Reji Aguilar MD Other Provider Active Start: April 29, 2025 Dr. Darien Barry MD Other Provider Active Start: April 29, 2025 Dr. Oscar Parmar MD Other Provider Active Star t: April 29, 2025 Dr. Jae Wong DO Other Provider Active Start : April 29, 2025 Dr. Amado Cortez MD Other Provider Active Sta rt: April 29, 2025 Dr. Gustavo Avila MD Other Provider Active St art: April 29, 2025 Dr. Nagi Martin MD Other Provider Active S tart: April 29, 2025 Dr. Claudia Gomes MD Other Provider Active Start: April 29, 2025 Dr. Yang Rogers MD Other Provider Active Start : April 29, 2025 Dr. Heron Sosa MD Other Provider Active Start: April 29, 2025 Dr. Gaudencio Garrison MD Other Provider Active Start : April 29, 2025 Dr. Aurora Huerta MD Other Provider Active Star t: April 29, 2025 Dr. Koki Mcnulty MD Other Provider Active Sta rt: April 29, 2025 Dr. Mary Lang MD Other Provider Active Sta rt: April 29, 2025 Dr. Eric Stanford MD Other Provider Active Star t: April 29, 2025 Dr. Nitish Monsivais MD Other Provider Active St art: April 29, 2025 Dr. Franko Shaw MD Other Provider Active Star t: April 29, 2025 Dr. Mason Rodriguez DO Other Provider Active St art: April 29, 2025 Dr. Babak Kilpatrick MD Other Provider Active Start: April 29, 2025 Dr. Ten Turner MD Other Provider Active St art: April 29, 2025 Dr. Rich Hand DO Other Provider Active Start: April 29, 2025 Dr. Migel Akins MD Other Provider Active Star t: April 29, 2025 Dr. Roger Murphy MD Other Provider Active Sta rt: April 29, 2025 Dr. Jayden Still DO Attending Provider Active Start: April 29, 2025 Team Status: Active Member Role/Relationship Status Dates Ras Childress Primary Care Provider Active Sta rt: April 29, 2025 Dr. Sammy Guerrero DO Emergency Provider Active Start : April 29, 2025 Dr. Dayana Abel MD Admit Provider Active St art: April 29, 2025 Dr. Dayana Abel MD Other Provider Active St art: April 29, 2025 Dr. Ras Blas DO Attending Provider Active Start: April 29, 2025 Dr. Ras Blas DO Other Provider Active Star t: April 29, 2025 Dr. Reji Aguilar MD Other Provider Active Start: April 29, 2025 Dr. Darien Barry MD Other Provider Active Start: April 29, 2025 Dr. Oscar Parmar MD Other Provider Active Star t: April 29, 2025 Dr. Jae Wong DO Other Provider Active Start : April 29, 2025 Dr. Amado Cortez MD Other Provider Active Sta rt: April 29, 2025 Dr. Gustavo Avila MD Other Provider Active St art: April 29, 2025 Dr. Nagi Martin MD Other Provider Active S tart: April 29, 2025 Dr. Claudia Gomes MD Other Provider Active Start: April 29, 2025 Dr. Yang Rogers MD Other Provider Active Start : April 29, 2025 Dr. Heron Sosa MD Other Provider Active Start: April 29, 2025 Dr. Gaudencio Garrison MD Other Provider Active Start : April 29, 2025 Dr. Aurora Huerta MD Other Provider Active Star t: April 29, 2025 Dr. Koki Mcnulty MD Other Provider Active Sta rt: April 29, 2025 Dr. Mary Lang MD Other Provider Active Sta rt: April 29, 2025 Dr. Eric Stanford MD Other Provider Active Star t: April 29, 2025 Dr. Nitish Monsivais MD Other Provider Active St art: April 29, 2025 Dr. Franko Shaw MD Other Provider Active Star t: April 29, 2025 Dr. Mason Rodriguez DO Other Provider Active St art: April 29, 2025 Dr. Babak Kilpatrick MD Other Provider Active Start: April 29, 2025 Dr. Ten Turner MD Other Provider Active St art: April 29, 2025 Dr. Rich Hnad DO Other Provider Active Start: April 29, 2025 Dr. Migel Akins MD Other Provider Active Star t: April 29, 2025 Dr. Roger Murphy MD Other Provider Active Sta rt: April 29, 2025 Team Status: Active Member Role/Relationship Status Dates Ras Childress Primary Care Provider Active Sta rt: April 30, 2025 Dr. Sammy Guerrero DO Emergency Provider Active Start : April 30, 2025 Dr. Dayana Abel MD Admit Provider Active St art: April 30, 2025 Dr. Dayana Abel MD Other Provider Active St art: April 30, 2025 Dr. Ras Blas DO Attending Provider Active Start: April 30, 2025 Dr. Ras Blas DO Other Provider Active Star t: April 30, 2025 Team Status: Active Member Role/Relationship Status Dates Rasomer Childress Primary Care Provider Active Sta rt: April 30, 2025 Dr. Sammy Guerrero DO Emergency Provider Active Start : April 30, 2025 Dr. Dayana Abel MD Admit Provider Active St art: April 30, 2025 Dr. Dayana Abel MD Other Provider Active St art: April 30, 2025 Dr. Ras Blas DO Referring Provider Active Start: April 30, 2025 Dr. Ras Blas DO Other Provider Active Star t: April 30, 2025 Dr. Jayden Still , Attending Provider Active Start: April 30, 2025 Team Status: Active Member Role/Relationship Status Dates Ras Da Silvas Primary Care Provider Active Sta rt: May 01, 2025 Dr. Sammy Guerrero DO Emergency Provider Active Start : May 01, 2025 Dr. Dayana Abel MD Admit Provider Active St art: May 01, 2025 Dr. Dayana Abel MD Other Provider Active St art: May 01, 2025 Dr. Ras Blas DO Attending Provider Active Start: May 01, 2025 Dr. Ras Blas DO Other Provider Active Star t: May 01, 2025 Team Status: Active Member Role/Relationship Status Dates Ras Meza Fior Primary Care Provider Active Sta rt: May 01, 2025 Dr. Sammy Guerrero DO Emergency Provider Active Start : May 01, 2025 Dr. Dayana Abel MD Admit Provider Active St art: May 01, 2025 Dr. Dayana Abel MD Other Provider Active St art: May 01, 2025 Dr. Ras Blas DO Referring Provider Active Start: May 01, 2025 Dr. Ras Blas DO Other Provider Active Star t: May 01, 2025 Dr. Jayden Still , Attending Provider Active Start: May 01, 2025 Team Status: Active Member Role/Relationship Status Dates Dr. Sammy Guerrero DO Emergency Provider Active Start : May 02, 2025 Dr. Dayana Abel MD Admit Provider Active St art: May 02, 2025 Dr. Dyaana Abel MD Other Provider Active St art: May 02, 2025 Dr. Ras Blas DO Attending Provider Active Start: May 02, 2025 Dr. Ras Blas DO Other Provider Active Star t: May 02, 2025 Meena VIEIRA MD Primary Care Provider Active Start: May 02, 2025 Team Status: Active Member Role/Relationship Status Dates Dr. Sammy Guerrero DO Emergency Provider Active Start : May 02, 2025 Dr. Dayana Abel MD Admit Provider Active St art: May 02, 2025 Dr. Dayana Abel MD Other Provider Active St art: May 02, 2025 Dr. Ras Blas DO Referring Provider Active Start: May 02, 2025 Dr. Ras Blas DO Other Provider Active Star t: May 02, 2025 Meena VIEIRA MD Primary Care Provider Active Start: May 02, 2025 Dr. Jayden Still DO Attending Provider Active Start: May 02, 2025 Team Status: Active Member Role/Relationship Status Dates Dr. Sammy Guerrero DO Emergency Provider Active Start : May 03, 2025 Dr. Dayana Abel MD Admit Provider Active St art: May 03, 2025 Dr. Dayana Abel MD Other Provider Active St art: May 03, 2025 Dr. Ras Blas DO Attending Provider Active Start: May 03, 2025 Dr. Ras Blas DO Other Provider Active Star t: May 03, 2025 Meena VIEIRA MD Primary Care Provider Active Start: May 03, 2025 Team Status: Active Member Role/Relationship Status Dates Dr. Sammy Guerrero DO Emergency Provider Active Start : May 03, 2025 Dr. Dayana Abel MD Admit Provider Active St art: May 03, 2025 Dr. Dayana Abel MD Other Provider Active St art: May 03, 2025 Dr. Ras Blas DO Referring Provider Active Start: May 03, 2025 Dr. Ras Blas DO Other Provider Active Star t: May 03, 2025 Meena VIEIRA MD Primary Care Provider Active Start: May 03, 2025 Dr. Jayden Still DO Attending Provider Active Start: May 03, 2025 Team Status: Inactive Member Role/Relationship Status Dates Meena VIEIRA MD Primary Care Provider Active Start: May 08, 2025 End: May 08, 2025 Meena VIEIRA MD Referring Provider Active S tart: May 08, 2025 End: May 08, 2025 DAVIDSON Lomeli Attending Provider Active St art: May 08, 2025 End: May 08, 2025 Team Status: Inactive Member Role/Relationship Status Dates Meena VIEIRA MD Primary Care Provider Active Start: May 08, 2025 End: May 08, 2025 DAVIDSON Lomeli Attending Provider Active St art: May 08, 2025 End: May 08, 2025 DAVIDSON Lomeli Referring Provider Active St art: May 08, 2025 End: May 08, 2025 Team Status: Inactive Member Role/Relationship Status Dates Dr. Ras Levy DO Attending Provider Active Start: May 08, 2025 End: May 08, 2025 Dr. Ras Levy DO Emergency Provider Active Start: May 08, 2025 End: May 08, 2025 Dr. Meena Guerra MD Primary Care Provider Active Start: May 08, 2025 End: May 08, 2025 Team Status: Inactive Member Role/Relationship Status Dates Dr. Meena Guerra MD Primary Care Provider Active Start: May 15, 2025 End: May 20, 2025 Dr. Meena Guerra MD Referring Provider Active Start: May 15, 2025 End: May 20, 2025 Ann Slater RESIN MAKER, RESIN MAKER-C Attending Provider Active Start: May 15, 2025 End: May 20, 2025 Team Status: Active Member Role/Relationship Status Dates Dr. Meena Guerra MD Primary Care Provider Active Start: May 15, 2025 Dr. Meena Guerra MD Referring Provider Active Start: May 15, 2025 Ann Slater RESIN MAKER, RESIN MAKER-C Attending Provider Active Start: May 15, 2025 Ann Slater RESIN MAKER, RESIN MAKER-C Other Provider Active S tart: May 15, 2025 Team Status: Inactive Member Role/Relationship Status Dates Dr. Meena Guerra MD Primary Care Provider Active Start: June 05, 2025 End: June 20, 2025 Dr. Meena Guerra MD Referring Provider Active Start: June 05, 2025 End: June 20, 2025 Ann Slater RESIN MAKER, RESIN MAKER-C Attending Provider Active Start: June 05, 2025 End: June 20, 2025 Team Status: Active Member Role/Relationship Status Dates Dr. Meena Guerra MD Primary Care Provider Active Start: June 05, 2025 Dr. Meena Guerra MD Referring Provider Active Start: June 05, 2025 Ann Slater RESIN MAKER, RESIN MAKER-C Attending Provider Active Start: June 05, 2025 Ann Slater RESIN MAKER, RESIN MAKER-C Other Provider Active S tart: June 05, 2025 Job Spotter Relationship Specialty Start Date End Date Meena Guerra MD [address] [place] [address] PCP - General Internal Medicine 11/29/16 Jose Arreola APRN.MENTAL HEALTH CASE MANAGER [address] [facility] [place] [address] Grain Trader Internal Medicine 10/28/24 Senait Waggoner RN [address] [place], [place] [id number] Primary Care Collection Systems Worker 05/28/25 Job Spotter Relationship Specialty Start Date End Date Meena Guerra MD [address] [facility] [place] [address] PCP - General Internal Medicine 11/29/16 Jose Arreola APRN.MENTAL HEALTH CASE MANAGER [address] [facility] [place] [address] Grain Trader Internal Medicine 10/28/24 Senait Waggoner RN [address] [place] [address] Primary Care Collection Systems Worker 05/28/25 Job Spotter Relationship Specialty Start Date End Date Meena Guerra MD [address] [facility] [place] [address] PCP - General Internal Medicine 11/29/16 Jose Arreola APRN.MENTAL HEALTH CASE MANAGER [address] [facility] [place] [address] Grain Trader Internal Medicine 10/28/24 Job Spotter Relationship Specialty Start Date End Date Meena Guerra MD [address] [facility] [place] [address] PCP - General Internal Medicine 11/29/16 Jose Arreola APRN.MENTAL HEALTH CASE MANAGER [address] [facility] [place] [address] Grain Trader Internal Medicine 10/28/24 Reason for Visit (unrecogniz ed section and content) Reason Comments Consult Specialty Diagnoses / Procedures Referred By Page campos Referred To Contact Cardiology Diagnoses Recurrent pleural effusion Persistent atrial fibrillation (HCC) Atrial fibrillation with RVR (HCC) Acute diastolic congestive heart failure (HCC) 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 Stage 3a chronic kidney disease (HCC) Mitral valve annular calcification Biatrial enlargement Acute diastolic CHF (congestive heart failure) (HCC) Procedures CONSULT TO CARDIOLOGY OFFICE/OUTPATIENT NEW HIGH MDM 60 MINUTES Meena Guerra MD [address] [place] [address] Phone: tel: fax: Referral ID Status Reason Start Date Expiration Date V isits Requested Visits Authorized [id number] Closed PCP Requested Referral 05/09/2025 05/09/2026 1 1 Reason Comments Established Patient 6 month follow up- m ed refills Reason Comments Established Patient Diabetic Foot Care Specialty Diagnoses / Procedures Referred By Page campos Referred To Contact Podiatry Diagnoses Type 2 diabetes mellitus with peripheral neuropathy (HCC) Procedures CONSULT TO PODIATRY OFFICE/OUTPATIENT [facility] 60-74 MINUTES Meena Guerra MD [address] [place] [address] Referral ID Status Reason Start Date Expiration Date V isits Requested Visits Authorized [id number] Closed PCP Requested Referral 03/22/2022 03/22/2023 1 1 Reason Comments Blood Pressure Check Reason Comments Blood Pressure Check Patient Update Reason Comments Refill Request Specialty Diagnoses / Procedures Referred By Page campos Referred To Contact Diagnoses Ductal carcinoma in situ (DCIS) of right breast Encounter for screening mammogram for malignant neoplasm of breast Procedures MAMMO SCREENING WITH DAVIONAmy Peñaloza, ANCIENT ART CURATOR-MENTAL HEALTH CASE MANAGER [address], [address] [place] [address] Referral ID Status Reason Start Date Expiration Date V isits Requested Visits Authorized [id number] New Request 08/13/2021 09/07/2022 1 1 Reason Comments Recheck 1 month elevated BP Reason Comments Appointment Reason Onset Date Comments Refill Request 11/29/2022 Reason Comments Established Patient Follow Up Diabetic Foot Care Reason Comments New Patient Lipodermatosclerosis Specialty Diagnoses / Procedures Referred By Contac t Referred To Contact Cardiovascular Medicine Diagnoses Lipodermatosclerosis, unspecified laterality Carlos Shaw MD [address] [place] [address] Referral ID Status Reason Start Date Expiration Date V isits Requested Visits Authorized [id number] New Request 10/04/2022 10/29/2023 1 1 Reason Comments Handicap placard Reason Comments Established Patient nail care [place] Reason Comments Follow-up 6follow up. Pt state s no new/onset vascular symptoms. Referral ID Status Reason Start Date Expiration Date V isits Requested Visits Authorized [id number] New Request 08/30/2022 09/24/2023 1 1 Reason Onset Date Comments Refill Request 09/12/2023 Reason Comments Recheck 6 month Reason Onset Date Comments Refill Request 01/03/2024 Specialty Diagnoses / Procedures Referred By Contac t Referred To Contact Diagnoses Carpal tunnel syndrome on left Procedures REFER TO PACC - PRE ANESTHESIA CONSULTATION CLINIC OFFICE/OUTPATIENT [facility] 60 MINUTES Falguni Hall PA-C [address] [place] [address] Referral ID Status Reason Start Date Expiration Date V isits Requested Visits Authorized [id number] Closed PCP Requested Referral 12/28/2023 12/27/2024 1 1 Reason Comments F/U 6 Month Reason Comments Recheck Follow up BP Reason Onset Date Comments Refill Request 07/03/2024 Reason Comments Radio Gen RMP Specialty Diagnoses / Procedures Referred By Contac t Referred To Contact XR IMAGING Diagnoses Pain Procedures XR HAND GENERAL 3V PA/LAT/OBL LEFT RADEX HAND MINIMUM [address] [place] [address] Referral ID Status Reason Start Date Expiration Date V isits Requested Visits Authorized [id number] Closed Auto-Generate d Referral 12/06/2023 11/20/2024 1 1 Reason Comments F/U 6 months Bilateral legs wound s, seen in [place], better now, usually sees Dr Carlos Shaw for skin. Reason Comments Results Referral ID Status Reason Start Date Expiration Date V isits Requested Visits Authorized [id number] Pending Review 09/05/2023 09/29/2024 1 1 Reason Comments Follow-up One year follow up w ith imaging. Reason Comments Follow-up 1 year fu leg swelli ng Reason Onset Date Comments Population Health Navigation Outreach 09/25/2024 Humananuradha workbenc pita Reason Onset Date Comments Paperwork 09/17/2024 [...] and irregular Reason Onset Date Comments ACM MIRANDA RN 01/10/2025 ED utilizatio n review per request of payor Reason Comments Hospital F/U Hospital [facility] f/u, a fib Reason Onset Date Comments Refill Request 02/21/2025 Reason Comments Follow Up Nail Care Diabetic Foot Care Reason Onset Date Comments Refill Request 03/04/2025 Reason Comments Patient Update Reason Comments Patient Update Patient Question Reason Onset Date Comments Population Health Navigation Outreach 04/26/2025 [facility] Reason Comments Orders Reason Comments Home Health Orders Reason Comments Longterm Plan of Care low bp reading PT POC Reason Comments ER F/U [facility] 04/16/25-04/27/25 S hortness of Breath, small NEL effusions right greater than left w/ bibasilar atelectasis worse on the right; [facility] 04/27/25-05/03/25 hypotension, anemia & GI bleed; 05/08/25 Hypotension Reason Comments Edema Reason Comments update with bp and heart rate Reason Comments Home Care Management Medication questions Dressing instructions for seeping legs Reason Comments Consult Reason Comments Patient Update Medication Problem Home Health Point of Care Results Reason Comments Appointment Cancelled Reason Onset Date Comments Transition Of Care 05/22/2025 TCM Inpatient reach in Reason Comments Post Dc Program Call - Reason Onset Date Comments Rn House Supervisor - Other 05/28/2025 Chart r eview and outreach for CHF GDMT Care Path Reason Onset Date Comments Transition Of Care 05/28/2025 Reason Comments Home Health PT-Plan of Care Reason Comments Home Care Management Reason Comments Diabetes Reason Comments Hospital Follow Up [facility] [place] -05/27/25 Heart Failure Reason Comments Longterm Update Reason Onset Date Comments Transition Of Care 06/11/2025 Reason Comments Consult Effusion Reason Comments Orders Appt and CXR Appointment Needs appt and CXR f or follow up Reason Onset Date Comments Allied Health Visit 07/03/2025 Medication A dherence Outreach Reason Comments Bradycardia Reason Onset Date Comments Population Health Navigation Outreach 07/19/2025 Healthy at Home - [facility] Reason Onset Date Comments Escalation of Care 07/19/2025 Reason Comments Bradycardia Low pulse rate Goals (unrecognized section and content) Goals may [...] BE BASED ON THE PRIMARY CLINICAL RECORDS. [facility]. provides no warranty or guarantee of the accuracy or completeness of information in this document.
[2025-07-20 13:15] VITALS: BP 125/67; PULSE 43; RESP 16; O2SAT 97
[2025-07-20 13:18] LABS: Hematocrit 35.2 % (37-47); Hemoglobin 11.1 g/dL (12.0-15.0); Immature Granulocytes Count 0.010 X10^3/uL (0.0-0.0); Mean Corp Hgb Conc 31.5 g/dL (32-36); Mean Corpuscular Volume 90.5 fL (81-99); Mean Platelet Vol. 10.8 fl (6.2-12.0); NRBC Flagged by Analyzer 0 % (0-5); Platelet Count 218 K/mm3 (150-450); RBC Distribution Width CV 18.2 % (11.6-14.6); RBC Distribution Width SD 59.9 fl (35.1-43.9); Red Blood Count 3.89 M/mm3 (4.2-5.4); White Blood Count 6.3 K/mm3 (4.4-11.0)
--- NOTE | 2025-07-20 13:20 | RAD_ITS ---
PROCEDURE: CHEST 1 VIEW (PORTABLE) 07/20/2025 REASON FOR EXAM: CORONARY ARTERY DISEASE TECHNIQUE: Frontal view of the chest. COMPARISON: Two-view chest, 05/08/2025. FINDINGS: There is a small right pleural effusion. There is right basilar atelectasis. The lungs are otherwise clear. The heart is enlarged. The mitral valve is heavily calcified. RAD/Chest 1 View (Portable) IMPRESSION: Small right pleural effusion with right basilar atelectasis. Cardiomegaly. Im proved appearance since the prior exam. Reading Location: [id number]
[2025-07-20 13:54] LABS: Anion Gap 12 (5-15); BUN 52 mg/dL (4-19); BUN/Creat Ratio 24.9 RATIO (10-20); Calcium,Total 9.6 mg/dL (7.6-11.0); Carbon Dioxide 19.4 mmol/L (21.0-32.0); Chloride 107 mmol/L (98-108); Estimated Creatinine Clearance 18.56 ml/min (50-250); Glucose 113 mg/dL (70-99); Potassium 6.9 mmol/L (3.3-5.1)
[2025-07-20 14:00] VITALS: BP 106/49; PULSE 45; RESP 14; O2SAT 97
[2025-07-20 15:00] VITALS: PULSE 39; RESP 13; O2SAT 100
[2025-07-20] MEDS: Calcium Gluconate IV 3 GM in Syringe 1 EACH IV (15:43)
[2025-07-20] MEDS: Insulin Lispro 10 UNIT in Syringe 0 ML 6 UNIT IV (15:45)
[2025-07-20 16:00] VITALS: BP 133/64; PULSE 46; RESP 15; O2SAT 100
--- NOTE | 2025-07-20 16:21 | PCA ---
CALLED PHYSICIANS TO SET UP A WILL -CALL FOR CRITICAL CARE TRANSPORT TO [facility].
[2025-07-20 16:39] VITALS: BP 144/63; PULSE 48; RESP 17; TEMP 36.8; O2SAT 99
== END 2025-07-20 17:21 | disposition short-term general hospital (02) ==
PROVIDERS: Emergency Provider Emergency Medicine; PCP Internal Medicine; Visit Provider Emergency Medicine
DX: N17.9 Acute kidney failure, unspecified (principal); I50.9 Heart failure, unspecified; I13.0 Hypertensive heart and chronic kidney disease with heart failure and stage 1 through stage 4 chronic kidney disease, or unspecified chronic kidney disease; E11.22 Type 2 diabetes mellitus with diabetic chronic kidney disease; R00.1 Bradycardia, unspecified; N18.9 Chronic kidney disease, unspecified; E87.5 Hyperkalemia; R79.9 Abnormal finding of blood chemistry, unspecified; Z79.899 Other long term (current) drug therapy; Z79.84 Long term (current) use of oral hypoglycemic drugs; Z96.643 Presence of artificial hip joint, bilateral; Z96.653 Presence of artificial knee joint, bilateral
CPT/HCPCS: 71045; 80048; 82962; 85025; 93005; 96361; 96374; 96375; 99285; A4216; J0612; J1938

== ENCOUNTER 2025-09-01 06:06 | Emergency (ER) | payer MEDICARE, SELFPAY ==
[2025-09-01 06:07] VITALS: BP 149/62; PULSE 53; RESP 16; TEMP 36.4; O2SAT 99; BMI 31.4
--- NOTE | 2025-09-01 06:24 | EX.ED.DYSGE1 ---
HPI History of Present Illness Chief Complaint: Fall Informant: patient and EMS Narrative Narrative: Patient is a 84-year-old female with past medical history of hypertension hyperlipidemia hypothyroidism congestive heart failure and atrial fibrillation. She states that she got up this morning to use the restroom. As she was walking back to her bed she tripped and fell. She states she struck the left side of her body against the dresser. She states she has a injury to her left forearm/wrist and she also states she struck the left side of her head/face. She denies any loss of consciousness and she denies any history of bleeding disorder or blood thinner use. She states that she was able to get up and ambulate following the fall but because of concern for underlying injury she called EMS and was brought in for evaluation. [facility] Medical History Duodenal ulcer Chronic anticoagulation Diabetes Kidney disease Non-smoker Venous (peripheral) insufficiency Atrial fibrillation CHF (congestive heart failure) Venous stasis ulcer Hyperpigmentation of skin Lipodermatosclerosis of both lower extremities Right leg swelling Left leg swelling Varicose veins of lower extremity with inflammation, 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 Chronic venous insufficiency Generalized osteoarthrosis History of right breast cancer Cardiomegaly Home Medications ?Medication ?Instructions ?Recorded ?Last Taken ?Type gabapentin 300 mg capsule 300 mg PO QHS Neuropathy 09/30/17 04/15/25 History (Neurontin) levothyroxine 100 mcg tablet 100 mcg PO DAILY thyroid 09/30/17 04/16/25 History cetirizine 10 mg tablet (24Hour 10 mg PO DAILY PRN allergy symptoms 01/08/25 Unknown History Allergy) diosmin complex no.1 630 mg tablet 1 tab PO DAILY 01/08/25 04/15/25 History (Vasculera) [id number]-bhjnzsdv-sztrio 1 tab PO DAILY vitamin 01/08/25 04/16/25 History tablet (A Thru Z High Potency tablet) simvastatin 20 mg tablet 20 mg PO QHS cholesterol 01/08/25 04/15/25 History pantoprazole 40 mg tablet,delayed 40 mg PO BID #60 tabs 05/03/25 Unknown Rx release (Protonix) sucralfate 1 gram tablet 1 g PO TIDAC #90 tabs 05/03/25 Unknown Rx empagliflozin 10 mg tablet 10 mg PO DAILY 05/15/25 Unknown History (Jardiance) docusate sodium 100 mg capsule 100 mg PO QDAY 07/30/25 Unknown History (Colace) torsemide 20 mg tablet 20 mg PO QDAY PRN 07/30/25 Unknown History Allergy/AdvReac Type Severity Reaction Status Date / Time enoxaparin (From Lovenox) Allergy Unknown Verified 08/23/25 08:19 oxycodone Allergy Unknown Verified 08/23/25 08:19 Penicillins (PCN) Allergy Unknown Verified 08/23/25 08:19 Family History Father Heart disease Hypertension Heart failure Mother Kidney disease Heart disease Cancer Surgical History History of lumpectomy of right breast History of lumbar laminectomy History of total replacement of both hip joints History of total bilateral knee replacement (TKR) Social History household members: spouse Smoking Status: Never smoker alcohol intake: never substance use type: does not use ROS ROS ED Constitutional Constitutional ED: Denies chills or fever(s) Eyes Eyes: Denies blurry vision or change in vision ENT ENT ED: Denies sore throat Cardiovascular Cardiovascular: Reports other Details: Negative syncope ; Denies chest pain, palpitations or racing heartbeat Respiratory/Chest Respiratory/Chest: Denies cough or dyspnea Gastrointestinal Gastrointestinal: Denies abdominal pain, diarrhea, nausea or vomiting Musculoskeletal Musculoskeletal: Reports other Details: Positive pain and swelling to the left shoulder left wrist and left hand ; Denies back pain or neck pain Integumentary Reports Abrasions Neurologic Neurologic: Denies headache(s), paresthesias or weakness Hematologic/Lymphatic Hematologic/Lymphatic: Denies easy bleeding or easy bruising EXAM Physical Exam Const Vital Signs: 09/01/25 06:07 09/01/25 06:11 Temperature 97.5 F L Temperature Source Oral Pulse Rate 53 L Respiratory Rate 16 Respiratory Effort Normal Non-Labored Respiratory Depth Normal Respiratory Pattern Normal Blood Pressure 149/62 H Blood Pressure Mean 91 Pulse Ox 99 Oxygen Delivery Method Room Air Room Air Positive well nourished and well developed General Appearance ED: well developed HEENT HEENT Narrative: There is a superficial abrasion with soft tissue swelling and faint ecchymosis to the left cheek near the zygomatic arch Otherwise no signs of depressed or basilar skull fracture There is scant amount of dried blood noted in the right nostril but no septal hematoma present Eyes PERRL and EOMs intact bilaterally Eyes Narrative: No hyphema General Eye ED: Negative for scleral icterus Neck supple Neck Narrative: No bony deformity or step-off of the cervical spine No midline tenderness to palpation Chest Wall palpation of chest normal Chest Narrative: No bony deformity or subcutaneous emphysema No pain with palpation Resp normal respiratory effort and clear to auscultation bilaterally Cardio regular rate and regular rhythm GI normal to inspection, nondistended, normoactive bowel sounds, non-tender, non-distended and no masses GI Narrative: No voluntary guarding or rigidity or pulsatile mass No abrasions or ecchymosis across the abdomen Auscultation: normoactive bowel sounds Palpation: soft Back/Spine Back/Spine Narrative: No bony deformity or step-off of the thoracic or lumbar spine No midline tenderness to palpation Extremity Extremity Narrative: Pelvis is stable there is no shortening or external rotation either lower extremity Left upper extremity is neurovascularly intact. Patient has a hematoma and ecchymosis along the distal aspect of the left radius. There is pain with palpation at this site but no obvious bony deformity or joint effusion. No ligamentous or tendon laxity noted. Patient also has hematoma and soft tissue swelling to the anterior aspect of the left shoulder with superficial abrasion present there as well. No obvious bony deformity. Negative sulcus sign. Patient also has a skin tear noted along the distal third volar aspect of the left forearm with mild ooze of blood but no retained foreign object or arterial bleeding noted Neuro oriented x3 and CN's II-XII intact bilaterally Sensorium / Orientation: alert Psych mental status grossly normal Skin Skin Narrative: Hematoma to the left distal radius and left shoulder as documented above with skin tear to the distal third aspect of the forearm No secondary findings to suggest infection MDM MDM MDM Narrative Medical decision making narrative: Patient arrived to the ER hypertensive but has a past medical history of this. She reported a mechanical fall while walking back from the restroom and therefore I feel no need for cardiac or syncope workup. She is not on a blood thinner nor does she report a history of bleeding disorder but based on her advanced age and history and exam showing signs of facial/head injury there is concern for skull fracture versus traumatic subarachnoid or subdural hemorrhage. Patient may also have a nasal fracture or orbital floor fracture. Therefore at this time CT of the head face and cervical spine will be obtained. In order to rule out a distal radius and ulna fracture versus shoulder fracture or dislocation x-rays will be ordered as well. The skin tear will be cleaned and dressed as there is no sign of infection or arterial injury and as it is a skin tear/avulsion there is no need for closure with sutures or Dermabond. The patient's imaging studies revealed no signs of acute trauma such as fracture or dislocation facial fracture or brain bleed. The patient was ambulated in the ER and she is able to ambulate at her baseline gait with a rollator. Therefore at this time as the patient's workup reveals no signs of underlying trauma and she is able to ambulate she is otherwise safe to return home. History & Record Review Discussion w/independent historian: Patient Radiography Diagnostic Testing: Clinical Impression(s) from Imaging Studies Cervical Spine CT 09/01/25 06:30 IMPRESSION: No acute injury to the cervical spine. Reading Location: [facility] Left hand x-ray as interpreted by the emergency medicine physician reveals osteoarthritic/degenerative changes without acute fracture or dislocation Left forearm x-ray as interpreted by the emergency medicine physician reveals osteoarthritic changes without acute fracture or dislocation Left shoulder x-ray as interpreted by the emergency medicine physician reveals osteoarthritic changes with degeneration and no acute fracture dislocation or joint effusion. Discharge Plan Triage Chief Complaint: Fall ED Provider: Gaudencio Gonzalez Dx/Rx/DC Orders Clinical Impression: Closed head injury, Accidental fall, Skin tear of left forearm without complication, Contusion of left shoulder, Contusion of left wrist, Hypertension, Hypothyroidism, Type 2 diabetes mellitus Instructions: Bone Contusion, ED Head Injury (Adult), ED Skin Tear (Skin Avulsion) Prescriptions: No Action torsemide 20 mg tablet 20 mg PO QDAY PRN docusate sodium [Colace] 100 mg capsule 100 mg PO QDAY levothyroxine 100 MCG tablet 100 mcg PO DAILY gabapentin [Neurontin] 300 MG capsule 300 mg PO QHS simvastatin 20 mg tablet 20 mg PO QHS Patient Comments: [NO ORIGINAL SIG] Vasculera 630 mg tablet 1 tab PO DAILY A Thru Z High Potency Tablet 1 tab PO DAILY cetirizine [24Hour Allergy] 10 mg tablet 10 mg PO DAILY PRN (Reason: allergy symptoms) pantoprazole [Protonix] 40 mg tablet,delayed release (DR/EC) 40 mg PO BID Qty: 60 0RF sucralfate 1 gram Tablet 1 g PO TIDAC Qty: 90 0RF Jardiance 10 mg tablet 10 mg PO DAILY Primary Care Provider: Meena Vasquez Referrals: Meena Vasquez MD [Primary Care Provider, Internal Medicine] Activity Restrictions/Additional Instructions: Your imaging studies did not reveal any signs of skull fracture brain bleed facial fracture or cervical spine injury. X-rays of your left arm also did not show any obvious signs of fracture or dislocation indicating the pain and swelling is from a hematoma or collection of blood. Please ice the areas to reduce pain and speed healing. Wash the skin tear with soap and water to help prevent secondary infection and bandage as directed. Continue all of your home medications as directed by your doctor and return to the ER should you have any further concerns or worsening of symptoms. Print Language: Kenyan Disposition Disposition: Home, Self Care
--- NOTE | 2025-09-01 06:30 | CT_ITS ---
PROCEDURE: SINUS/FACIAL BONE 09/01/2025 REASON FOR EXAM: FALL TECHNIQUE: Procedure Code: CTSI Modality: CT Procedure: SINUS/FACIAL BONE Coronal and Sagittal reconstruction series were provided. One or more dose reduction techniques were used (e.g., Automated exposure control, adjustment of the mA and/or kV according to patient size, use of iterative reconstruction technique). RADIATION DOSE SUMMARY: CTDlvol: 29.38 mGy DLP: 7061.55 mGycm COMPARISON: None. FINDINGS: Bones: No acute bony abnormalities. Paranasal sinuses and mastoid cells: Clear. Soft tissues: No soft tissue abnormalities. Orbits: No acute bony abnormalities. CT/Sinus/Facial Bone IMPRESSION: No acute maxillofacial abnormalities. Reading Location: [id number]
--- NOTE | 2025-09-01 06:30 | CT_ITS ---
PROCEDURE: BRAIN/HEAD WITHOUT CONTRAST 09/01/2025 REASON FOR EXAM: FALL TECHNIQUE: Procedure Code: CTBR Modality: CT Procedure: BRAIN/HEAD WITHOUT CONTRAST Coronal and Sagittal reconstruction series were provided. One or more dose reduction techniques were used (e.g., Automated exposure control, adjustment of the mA and/or kV according to patient size, use of iterative reconstruction technique. RADIATION DOSE SUMMARY: CTDI Vol 44.99 mGy DLP :846.73 mGycm COMPARISON: None. FINDINGS: Mild diffuse cortical atrophy, commensurate with the patient's age. Scattered hypodense foci in the periventricular and subcortical white matter suggestive of chronic ischemic white matter disease. Normal size of the ventricles and extra-axial spaces for the patient's age. Normal basal ganglia and thalami. Normal brainstem. Normal cerebellum. There is no demonstrated extra-axial, intraparenchymal, or intraventricular hemorrhage. There are no findings of an acute ischemic infarction. Normal calvarium. There is no demonstrated fracture. Scattered benign chronic calcifications in the subgaleal soft tissues. Normal visualized paranasal sinuses. CT/Brain/Head without Contrast IMPRESSION: No CT evidence for acute brain abnormality. Reading Location: [id number]
--- NOTE | 2025-09-01 06:30 | CT_ITS ---
PROCEDURE: SPINE CERVICAL WITHOUT CONTRAS 09/01/2025 REASON FOR EXAM: FALL TECHNIQUE: Procedure Code: CTSPC Modality: CT Procedure: SPINE CERVICAL WITHOUT CONTRAS Coronal and Sagittal reconstruction series were provided. One or more dose reduction techniques were used (e.g., Automated exposure control, adjustment of the mA and/or kV according to patient size, use of iterative reconstruction technique. RADIATION DOSE SUMMARY: CTDlvol: 29.38 mGy DLP: 1761.55 mGycm COMPARISON: None. FINDINGS: Alignment: Anterolisthesis C6 on C7 by 3 mm. Vertebrae: No acute bony abnormalities. Disc levels: Multilevel degenerate changes predominantly at C4-C5 where there is disc space narrowing, uncovertebral hypertrophy, facet joint arthropathy, severe bilateral foramina stenosis and severe canal stenosis. Soft Tissues: No soft tissue abnormalities. CT/Spine Cervical without Contras IMPRESSION: No acute injury to the cervical spine. Reading Location: [id number]
--- NOTE | 2025-09-01 06:54 | RAD_ITS ---
PROCEDURE: HAND MIN 3 VIEWS 09/01/2025 REASON FOR EXAM: PAIN TECHNIQUE: Procedure Code: ELLEN Modality: DX Procedure: HAND MIN 3 VIEWS Laterality: Left COMPARISON: None. FINDINGS: Bones: No acute bony abnormalities. Joints: Radiocarpal and 1st carpometacarpal joint space narrowing with sclerosis. Similar arthritic changes with bone overgrowth at the 1st metacarpophalangeal joint. Distal interphalangeal joint space narrowing. These findings are consistent with osteoarthritis. Soft tissues: No soft tissue abnormalities. Other: RAD/Hand Min 3 Views IMPRESSION: Marked osteoarthrosis. No acute bony abnormalities. Reading Location: [id number]
--- NOTE | 2025-09-01 06:54 | RAD_ITS ---
PROCEDURE: FOREARM 2 VIEWS 09/01/2025 REASON FOR EXAM: PAIN TECHNIQUE: Procedure Code: RADFA Modality: DX Procedure: FOREARM 2 VIEWS Laterality: Left. COMPARISON: None. FINDINGS: Bones: No acute bony abnormalities. Joints: Normal alignment. Soft tissues: No soft tissue abnormalities. RAD/Forearm 2 Views IMPRESSION: No acute osseous abnormalities. Reading Location: [id number]
--- NOTE | 2025-09-01 06:54 | RAD_ITS ---
PROCEDURE: SHOULDER MIN 2 VIEWS 09/01/2025 REASON FOR EXAM: PAIN TECHNIQUE: Procedure Code: RADSH Modality: DX Procedure: SHOULDER MIN 2 VIEWS Laterality: Left COMPARISON: None. FINDINGS: Bones: No acute bony abnormalities. Joints: Unremarkable. Soft tissues: No soft tissue abnormalities. RAD/Shoulder min 2 Views IMPRESSION: No acute osseous abnormalities. Reading Location: [id number]
[2025-09-01 07:51] VITALS: BP 146/60; PULSE 59; RESP 16; TEMP 36.6; O2SAT 100
== END 2025-09-01 07:57 | disposition home or self-care (01) ==
PROVIDERS: Emergency Provider Emergency Medicine; PCP Internal Medicine; Visit Provider Emergency Medicine
DX: S40.012A Contusion of left shoulder, initial encounter (principal); I11.0 Hypertensive heart disease with heart failure; I50.9 Heart failure, unspecified; I48.91 Unspecified atrial fibrillation; E11.9 Type 2 diabetes mellitus without complications; S51.802A Unspecified open wound of left forearm, initial encounter; S09.90XA Unspecified injury of head, initial encounter; E03.9 Hypothyroidism, unspecified; S60.212A Contusion of left wrist, initial encounter; E78.5 Hyperlipidemia, unspecified; W01.190A Fall on same level from slipping, tripping and stumbling with subsequent striking against furniture, initial encounter; Y93.01 Activity, walking, marching and hiking; Z79.890 Hormone replacement therapy; Z79.899 Other long term (current) drug therapy; Z79.84 Long term (current) use of oral hypoglycemic drugs; Z96.643 Presence of artificial hip joint, bilateral; Z96.653 Presence of artificial knee joint, bilateral
CPT/HCPCS: 70450; 70486; 72125; 73030; 73090; 73130; 99285

== ENCOUNTER 2025-09-19 08:51 | Outpatient (RCR) | payer MEDICARE, SELFPAY ==
[2025-09-19 09:22] VITALS: BP 182/84; PULSE 61; RESP 18; TEMP 35.8; BMI 30.2
--- NOTE | 2025-09-19 13:09 | HP.PCM_ITS ---
History of Present Illness Date of Service: 09/19/25 Chief Complaint: Right buttock ulcer History of Wound: Ms. Smart is an 84-year-old who was referred to the wound center by her primary care physician due to right buttock ulcer. Sustained during a hospital admission a few months ago. Since then, has been utilizing an antibiotic and Desitin ointment to the area. She believes that there has been some improvement from initial note. History of diabetes which is well- controlled with most recent A1c less than 7. Pretty active and up until recently, slept in bed. Dietary intake is said to be very good. No chills, fever or otherwise feeling of unwell. [facility] Medical History (Updated 09/19/25 @ 13:[address] Candie Jordan MD) Debility Stage II pressure ulcer of right buttock Duodenal ulcer Chronic anticoagulation Diabetes Kidney disease Non-smoker Venous (peripheral) insufficiency Atrial fibrillation CHF (congestive heart failure) Venous stasis ulcer Hyperpigmentation of skin Lipodermatosclerosis of both lower extremities Right leg swelling Left leg swelling Varicose veins of lower extremity with inflammation, 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 Chronic venous insufficiency Generalized osteoarthrosis History of right breast cancer Cardiomegaly Home Medications ?Medication ?Instructions ?Recorded ?Last Taken ?Type gabapentin 300 mg capsule 300 mg PO QHS Neuropathy 09/0604/15/25 History (Neurontin) levothyroxine 100 mcg tablet 100 mcg PO DAILY thyroid 09/30/17 04/16/25 History cetirizine 10 mg tablet (24Hour 10 mg PO DAILY PRN all ergy symptoms 01/08/25 Unknown History Allergy) diosmin complex no.1 630 mg tablet 1 tab PO DAILY 12/2204/15/25 History (Vasculera) ovndqcwzfdvo-ootgvdxf-ozdasu 1 tab PO DAILY vitamin 04/16/25 History tablet (A Thru Z High Potency tablet) simvastatin 20 mg tablet 20 mg PO QHS cholesterol 04/15/25 History pantoprazole 40 mg tablet,delayed 40 mg PO BID #60 tab s 05/03/25 Unknown Rx release (Protonix) empagliflozin 10 mg tablet 10 mg PO DAILY 05/15/25 Unk nown History (Jardiance) docusate sodium 100 mg capsule 100 mg PO QDAY 07/30/25 Unknown History (Colace) torsemide 20 mg tablet 20 mg PO QDAY PRN WEIGHT GAI N, 07/30/25 Unknown History WATER PILL
--- NOTE | 2025-09-19 13:09 | PCM.WC.HP ---
History of Present Illness Date of Service: 09/19/25 Chief Complaint: Right buttock ulcer History of Wound: Ms. Smart is an 84-year-old who was referred to the wound center by her primary care physician due to right buttock ulcer. Sustained during a hospital admission a few months ago. Since then, has been utilizing an antibiotic and Desitin ointment to the area. She believes that there has been some improvement from initial note. History of diabetes which is well-controlled with most recent A1c less than 7. Pretty active and up until recently, slept in bed. Dietary intake is said to be very good. No chills, fever or otherwise feeling of unwell. [facility] Medical History (Updated 09/19/25 @ 13:[address] Candie Jordan MD) Debility Stage II pressure ulcer of right buttock Duodenal ulcer Chronic anticoagulation Diabetes Kidney disease Non-smoker Venous (peripheral) insufficiency Atrial fibrillation CHF (congestive heart failure) Venous stasis ulcer Hyperpigmentation of skin Lipodermatosclerosis of both lower extremities Right leg swelling Left leg swelling Varicose veins of lower extremity with inflammation, 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 Chronic venous insufficiency Generalized osteoarthrosis History of right breast cancer Cardiomegaly Home Medications ?Medication ?Instructions ?Recorded ?Last Taken ?Type gabapentin 300 mg capsule 300 mg PO QHS Neuropathy 09/30/17 04/15/25 History (Neurontin) levothyroxine 100 mcg tablet 100 mcg PO DAILY thyroid 09/30/17 04/16/25 History cetirizine 10 mg tablet (24Hour 10 mg PO DAILY PRN allergy symptoms 01/08/25 Unknown History Allergy) diosmin complex no.1 630 mg tablet 1 tab PO DAILY 01/08/25 04/15/25 History (Vasculera) vskxrybfbpnw-vtlrnniy-ywnrhk 1 tab PO DAILY vitamin 01/08/25 04/16/25 History tablet (A Thru Z High Potency tablet) simvastatin 20 mg tablet 20 mg PO QHS cholesterol 01/08/25 04/15/25 History pantoprazole 40 mg tablet,delayed 40 mg PO BID #60 tabs 05/03/25 Unknown Rx release (Protonix) empagliflozin 10 mg tablet 10 mg PO DAILY 05/15/25 Unknown History (Jardiance) docusate sodium 100 mg capsule 100 mg PO QDAY 07/30/25 Unknown History (Colace) torsemide 20 mg tablet 20 mg PO QDAY PRN WEIGHT GAIN, 07/30/25 Unknown History WATER PILL Allergy/AdvReac Type Severity Reaction Status Date / Time enoxaparin (From Lovenox) Allergy Unknown Verified 08/23/25 08:19 oxycodone Allergy Unknown Verified 08/23/25 08:19 Penicillins (PCN) Allergy Unknown Verified 08/23/25 08:19 Family History Father Heart disease Hypertension Heart failure Mother Kidney disease Heart disease Cancer Surgical History History of lumpectomy of right breast History of lumbar laminectomy History of total replacement of both hip joints History of total bilateral knee replacement (TKR) Social History household members: spouse Smoking Status: Never smoker alcohol intake: never substance use type: does not use ROS Constitutional Constitutional: Denies change in weight, chills, fatigue, fever(s), increased appetite, lethargy or malaise Eyes Eyes: Denies blind spots, bloody eye, change in eye color, change in vision, diplopia, discharge from eye(s), discongugate gaze or erythema ENT HEENT: Denies change in voice, epistaxis, foreign body in nose, halitosis, headache(s), hearing loss or mouth pain Cardiovascular Cardiovascular: Denies abdominal bloating, abdominal pain, diaphoresis, dizziness, dyspnea at rest or dyspnea on exertion Respiratory/Chest Respiratory/Chest: Denies chest congestion, difficulty clearing secretions, dusky skin, dyspnea, dyspnea on exertion, excessive phlegm production, hemoptysis, hoarseness or inability to speak Gastrointestinal Gastrointestinal: Denies abdominal pain, bloating, chewing difficulty, cramping, diarrhea or dry heaves Genitourinary Genitourinary: Denies abdominal discomfort, change in urinary stream, contractions, difficulty urinating or flank pain Musculoskeletal Musculoskeletal: Reports limited range of motion; Denies atrophy, numbness, tingling or tremors Integumentary Integumentary: Denies alopecia, bleeding lesions, erythema or jaundice Neurologic Neurologic: Denies behavior changes, focal weakness, frequent falls, headache(s), lack of coordination, memory loss or numbness Psychiatric Psychiatric: Denies auditory hallucinations, behavioral changes, hallucinations, mood swings, tactile hallucinations or visual hallucinations Endocrine Endocrinology: Denies cold intolerance, deepening of the voice, excessive sweating, heat intolerance or increase in ring/shoe/hat size Hematologic/Lymphatic Hematologic/Lymphatic: Denies easy bleeding or easy bruising Allergic/Immunologic Allergic/Immunologic: Denies lip swelling, rhinitis, throat swelling, tongue swelling, urticaria, eczemia or wheezing Vital Signs Vital Signs Vital Signs: 09/19/25 09:22 Temperature 96.5 F L Temperature Source Temporal Pulse Rate 61 Respiratory Rate 18 Blood Pressure 182/84 H Blood Pressure Mean 116 Blood Pressure Source Monitor Blood Pressure Position Semi-Fowlers Blood Pressure Location Left Arm Weight Weight: 160 lb Body Mass Index (BMI) 30.2 Physical Exam Const alert, oriented x3 and no apparent distress General Appearance: cooperative, comfortable and well kempt HEENT normocephalic, head/scalp atraumatic and hearing grossly normal bilaterally Eyes EOMs intact bilaterally General Eye: normal appearance of both eyes Neck full ROM General: normal visual inspection Resp normal respiratory effort and normal air movement Effort and Inspection: able to speak in complete sentences Cardio regular rate Rhythm: abnormal rhythm GI soft to palpation and non-tender Skin Wounds: wounds noted size Size: See clinical note, bed granulating well, margins well approximated, no odor and surrounding erythema Neuro oriented x3, CN's II-XII intact bilaterally, moves all extremities and no focal motor deficits Psych mental status grossly normal, thought process normal, cooperative and affect normal Debridement Note Debridement Note Wound debrided: Right buttock Wound Grade/Stage: Stage II Type of Debridement: Excisional debridement Anesthesia Used: 5% Lidocaine Gel Depth: Down to and including healthy tissue and in the subcutaneous layer Percentage of wound debrided: 100 Instrument Used: 3mm curette Tissue Removed: Devitalized tissue Severity: Fat Layer Exposed Amount of bleeding with debridement: Mild Bleeding Controlled with: Pressure Patient tolerated procedure: Patient tolerated procedure well Post-Debridement Measurements and Additional Note: Post-Debridement Measurements/Treatment WC - Nurse 1 - General Ulcer Assessment Start: 09/19/25 09:17 Freq: Status: Active Protocol: JORGE Activity Type Activity Date Activity User E-sign Co-sign Detail Recorded Client Recorded Date Recorded By Document 09/19/25 09:22 RB [id number] 09/19/25 09:30 RB 09/19/25 09:22 WC - Today's Visit Information Type of service Initial Visit Arrival Mode Ambulatory Transfer Assistance None Patient Identification Verified (Name & Yes ) Patient Requires Transmission-Based No Precautions Height and Weight Height 5 ft 1.02 in Weight 160 lb Weight in Pounds 160.0 lbs Body Mass Index (BMI) 30.2 BMI Classification Obese Vital Signs Temperature (97.8 F-99.1 F) 96.5 F L Temperature Source Temporal Pulse Rate (60-100) 61 Pulse Location Monitor Respiratory Rate (12-18) 18 Respiratory rate source Observation Blood Pressure (90/60-120/80) 182/84 H Blood Pressure Mean 116 Source Monitor Position Semi-Fowlers Blood Pressure Location Left Arm History Since Last Visit- (Skip if this is Patient's initial visit) Have you changed medications since your No last visit? Any new allergies or adverse reactions No Had a fall/change in ADL's that may No increase risk of falls Signs or symptoms of abuse and/or No neglect since last visit Have you been in the hospital since your No last visit? Has dressing in place as prescribed Yes Has compression in place as prescribed N/A Has offloadiing in place as prescribed N/A Experienced any changes in pain level or No management Pain Scale: 0-10 Numeric Is Patient Pain Free? Yes Communication Assessment Preferred language Upper Sorbian Surgical Coder Required No Able to Read Yes Able to Write Yes Communication Tools None Caregiver Communication Skills No Impairment Impairment Right Hearing Abillity Hard of Hearing Left Hearing Abillity Hard of Hearing Visual Assistive Devices Glasses Teaching Assessment Preferences Verbal,Written, Demonstration Barriers to Learning None Readiness To Learn Excellent Willingness to Engage in Self Management High Activies Readiness to Engage in Self Management High Activities Anxiety Level Calm Cooperation Cooperative Perception Coherent Interest in Health Problem Asks Questions Education Importance Acknowledges Need Does Patient Smoke tobacco or other No substances Smoking Status Never smoker Is Patient Diabetic Yes Functional Assessment Recent Decline in Ability to Perform Denies Any Declines Assistive Device With Patient No Culture/Catholic/Window Clerk Cultural/Catholic Needs that may affect No Treatment Plan Would you allow our hospital mamma logist to No meet you for the purpose of spiritual/ emotional support? Window Clerk to contact place of scientologist No WC - Nurse 1 - General Ulcer Measurement Start: 09/19/25 09:17 Freq: Status: Active Protocol: Activity Type Activity Date Activity User E-sign Co-sign Detail Recorded Client Recorded Date Recorded By Document 09/19/25 09:22 RB [id number] 09/19/25 09:30 RB 09/19/25 09:22 Wound Center Nurse 1 4. R buttocks -Combined with other wound No -Current Size (cm) - Length 0.1 -Current Size (cm) - Width 0.1 -Current Size (cm) - Depth 0.1 -Total Square Cm 0.01 -Photo Taken Yes -Tunneling No -Undermining/Tunneling No -Circular Undermining No -Exudate Amt Small -Exudate Type Serosanguineous -Wound Margin Distinct, Outline Attached -Granulation Amt Large (67-100%) -Granulation Quality [place] -Slough/Fibrin Yes -Necrosis Amt Medium (34-66%) -Necrotic Tissue Type Adherent Slough -Structure Exposed N/A -Texture (Deborah-wound Skin Appearance) Assessed, Scarring -Moisture (Deborah-wound Skin Appearance) Assessed -Color (Deborah-wound Skin Appearance) Assessed -Temperature (Deborah-wound Skin No Abnormality Appearance) (Pt Warm) -Tenderness on Palpation (Deborah-wound No Skin Appearance) -Ulcer Cleansing Wound Cleanser -Foul Odor after Cleansing No -Anesthetic Used 5% Lidocaine Gel WC - Nurse 2 - General Ulcer CM Notes Start: 09/19/25 09:17 Freq: Status: Active Protocol: Activity Type Activity Date Activity User E-sign Co-sign Detail Recorded Client Recorded Date Recorded By Document 09/19/25 09:53 DS [id number] 09/19/25 09:56 DS 09/19/25 09:53 Wound Center Nurse 2 -Time 09:53 -Correct Patient Yes -Correct Side, Site, Position Yes -Correct Procedure Yes -Procedure Performed Yes -Type of Procedure Debridement -Clinical Debridement Subcutaneous -Post Debridement (cm) - Length 0.3 -Post Debridement (cm) - Width 0.4 -Post Debridement (cm) - Depth 0.1 -Total Square (Post) (cm) 0.12 -Area of Debridement (cm) - Length 0.3 -Area of Debridement (cm) - Width 0.4 -Total Square (Area) (cm) 0.12 -Tunneling No -Undermining/Tunneling No -Circular Undermining No -Wound/Ulcer Outcome Not Healed -Ulcer Cleansing Rinsed/ Irrigated with Saline -Foul Odor after Cleansing No -Bioengineered Tissue No -Bleeding Controlled with Pressure -Treatment Response Procedure Tolerated Well -Debridement - Subq, 1st 20sq cm Yes Pain Scale: 0-10 Numeric Is Patient Pain Free? Yes - Nurse 3 - General Ulcer D/C NN Start: 09/19/25 09:17 Freq: Status: Active Protocol: Activity Type Activity Date Activity User E-sign Co-sign Detail Recorded Client Recorded Date Recorded By Document 09/19/25 10:01 DS [id number] 09/19/25 10:09 DS 09/19/25 10:01 Wound Care Center Nurse 3 4. R buttocks -Ulcer Cleansing Rinsed/ Irrigated with Saline -Primary Dressing Applied NonAdherent Contact Layer, Promogran, Silicone Border Foam 4x4 -Promogran 1 -Silicone Border Foam 4x4 1 Pain Scale: 0-10 Numeric Is Patient Pain Free? Yes WC - Visit Discharge Discharge Condition Stable Ambulatory Status Ambulatory, Walker Transportation Private Auto Charges/Coding Visit Charges Office Visits / Consults: 15007 OV L3 New 30min Procedures Integumentary [id number]: [id number] Genevieve subq tissue 20 sq cm/< Assessment/Plan Assessment/Plan (1) Stage II pressure ulcer of right buttock: CODE(S): L89.312 - Pressure ulcer of right buttock, stage 2 (2) Type 2 diabetes mellitus: CODE(S): E11.9 - Type 2 diabetes mellitus without complications QUALIFIERS: Diabetes mellitus complication status: with unspecified complications Diabetes mellitus care home insulin use: unspecified oysterman insulin use status Qualified Code(s): E11.8 - Type 2 diabetes mellitus with unspecified complications (3) CHF (congestive heart failure): CODE(S): I50.9 - Heart failure, unspecified (4) Debility: CODE(S): R53.81 - Other malaise PLAN: Plan Debridement done as documented above, procedure was well-tolerated. Significant improvement compared to the initial pictures. Switch to slightly moistened Promogran, cover with Adaptic and foam dressing. Change at least daily or when soiled. Discussed with the patient, for lower extremity edema she was advised that she is better off sleeping in bed than in her recliner, she voiced understanding and stated that she had no problems sleeping in bed but was advised to sleep in a recliner. Plans to make changes. Continue optimal dietary intake. Optimal diabetes control and other chronic wound care management. Her questions were answered, she was advised to let us know if she had any further questions or concerns. She voiced understanding. Follow-up in a week or sooner if needed. This note was generated with [employer] dictation software. It may contain incorrect words, spelling, and punctuation that were not noted in checking the note before signing.
--- NOTE | 2025-09-20 07:36 | WC ---
PHOTO-RIGHT BUTTOCK 09/19/25
== END 2025-09-20 23:59 | disposition home or self-care (01) ==
LOC: WC 08:51
PROVIDERS: PCP Internal Medicine; Referring Provider Internal Medicine; Visit Provider Internal Medicine
DX: L89.312 Pressure ulcer of right buttock, stage 2 (principal); I50.9 Heart failure, unspecified; Z79.4 Long term (current) use of insulin; E11.9 Type 2 diabetes mellitus without complications; R53.81 Other malaise; Z79.890 Hormone replacement therapy; Z96.653 Presence of artificial knee joint, bilateral; Z85.3 Personal history of malignant neoplasm of breast
CPT/HCPCS: 11042; 99213; G0463

== ENCOUNTER 2025-09-26 09:23 | Outpatient (RCR) | payer MEDICARE, SELFPAY ==
[2025-09-26 09:30] VITALS: BP 156/75; RESP 16; TEMP 36.4
--- NOTE | 2025-09-26 10:10 | PCM.WC.PN ---
History of Present Illness Date of Service: 09/26/25 Chief Complaint: Right buttock ulcer History of Wound: Ms. Smart is an 84-year-old who was referred to the wound center by her primary care physician due to right buttock ulcer. Sustained during a hospital admission a few months ago. Since then, has been utilizing an antibiotic and Desitin ointment to the area. She believes that there has been some improvement from initial note. History of diabetes which is well-controlled with most recent A1c less than 7. Pretty active and up until recently, slept in bed. Dietary intake is said to be very good. No chills, fever or otherwise feeling of unwell. Progress of Wound: No acute concerns at this time. She states that she has noted no pain in the area. Largely healed. Objective Data Objective Data Vital Signs: Vital Signs Temp Resp BP O2 Del Method 97.5 F L 16 156/75 H Room Air 09/26/25 09:30 09/26/25 09:30 09/26/25 09:30 09/26/25 09:30 Oxygen Delivery Method Room Air Charges/Coding Visit Charges Office Visits / Consults: 18416 OV L3 Est 20min Physical Exam Const alert, oriented x3 and no apparent distress General Appearance: cooperative, comfortable and well kempt HEENT normocephalic, head/scalp atraumatic and hearing grossly normal bilaterally Eyes EOMs intact bilaterally General Eye: normal appearance of both eyes Neck full ROM General: normal visual inspection Resp normal respiratory effort Effort and Inspection: able to speak in complete sentences Neuro oriented x3, CN's II-XII intact bilaterally, moves all extremities and no focal motor deficits Psych mental status grossly normal, thought process normal, cooperative and affect normal Debridement Note Debridement Note Post-Debridement Measurements and Additional Note: Post-Debridement Measurements/Treatment TOREY - Nurse 1 - General Ulcer Assessment Start: 09/26/25 09:30 Freq: Status: Active Protocol: JORGE Activity Type Activity Date Activity User E-sign Co-sign Detail Recorded Client Recorded Date Recorded By Document 09/26/25 09:30 KARMEN [id number] 09/26/25 09:43 KARMEN 09/26/25 09:30 TOREY - Today's Visit Information Type of service Follow-up Visit (Physician/LENS MATCHER ) Arrival Mode Ambulatory, Walker Patient Identification Verified (Name & Yes ) Patient Requires Transmission-Based No Precautions Vital Signs Temperature (97.8 F-99.1 F) 97.5 F L Temperature Source Temporal Pulse Location Monitor Respiratory Rate (12-18) 16 Respiratory rate source Observation Oxygen Delivery Method Room Air Blood Pressure (90/60-120/80) 156/75 H Blood Pressure Mean (mm Hg) 102 Source Monitor Position Sitting Blood Pressure Location Right Arm History Since Last Visit- (Skip if this is Patient's initial visit) Have you changed medications since your No last visit? Any new allergies or adverse reactions No Had a fall/change in ADL's that may No increase risk of falls Signs or symptoms of abuse and/or No neglect since last visit Have you been in the hospital since your No last visit? Has dressing in place as prescribed Yes Has compression in place as prescribed N/A Has offloadiing in place as prescribed N/A Experienced any changes in pain level or No management Left Footwear Regular Shoe Right Footwear Regular Shoe Pain Scale: 0-10 Numeric Is Patient Pain Free? Yes WC - Nurse 1 - General Ulcer Measurement Start: 09/26/25 09:30 Freq: Status: Active Protocol: Activity Type Activity Date Activity User E-sign Co-sign Detail Recorded Client Recorded Date Recorded By Document 09/26/25 09:30 KARMEN [id number] 09/26/25 09:43 KARMEN 09/26/25 09:30 Wound Center Nurse 1 4. R buttocks -Combined with other wound No -Current Size (cm) - Length 0.3 -Current Size (cm) - Width 0.4 -Current Size (cm) - Depth 0.1 -Total Square Cm 0.12 -Date of Last Picture (Recall this 09/26/25 field) -Photo Taken Yes -Tunneling No -Undermining/Tunneling No -Circular Undermining No -Exudate Amt Small -Exudate Type Serous -Wound Margin Distinct, Outline Attached -Granulation Amt Medium (34-66%) -Granulation Quality [place] -Slough/Fibrin Yes -Necrosis Amt Medium (34-66%) -Necrotic Tissue Type Adherent Slough -Texture (Deborah-wound Skin Appearance) Assessed -Moisture (Deborah-wound Skin Appearance) Assessed -Color (Deborah-wound Skin Appearance) Assessed -Temperature (Deborah-wound Skin No Abnormality Appearance) (Pt Warm) -Tenderness on Palpation (Deborah-wound No Skin Appearance) -Ulcer Cleansing Rinsed/ Irrigated with Saline -Foul Odor after Cleansing No -Anesthetic Used 5% Lidocaine Gel WC - Nurse 2 - General Ulcer CM Notes Start: 09/26/25 09:30 Freq: Status: Active Protocol: Activity Type Activity Date Activity User E-sign Co-sign Detail Recorded Client Recorded Date Recorded By Document 09/26/25 10:09 [id number] 09/26/25 10:10 09/26/25 10:09 Wound Center Nurse 2 -Time 10:09 -Correct Patient Yes -Correct Side, Site, Position Yes -Correct Procedure No -Procedure Performed No -Tunneling No -Undermining/Tunneling No -Circular Undermining No -Wound/Ulcer Outcome Healed- Epithelialized -Ulcer Cleansing Rinsed/ Irrigated with Saline -Foul Odor after Cleansing No -Bleeding Controlled with NA -Offloading No Pain Scale: 0-10 Numeric Is Patient Pain Free? Yes Assessment/Plan Assessment/Plan (1) Stage II pressure ulcer of right buttock: CODE(S): L89.312 - Pressure ulcer of right buttock, stage 2 (2) Type 2 diabetes mellitus: CODE(S): E11.9 - Type 2 diabetes mellitus without complications QUALIFIERS: Diabetes mellitus complication status: with unspecified complications Diabetes mellitus detention insulin use: unspecified detention insulin use status Qualified Code(s): E11.8 - Type 2 diabetes mellitus with unspecified complications (3) CHF (congestive heart failure): CODE(S): I50.9 - Heart failure, unspecified (4) Debility: CODE(S): R53.81 - Other malaise PLAN: Plan Healed. No acute concerns at this time. Due to concern for location/pressure will continue moistened Promogran, Adaptic and foam dressing for a week. Then Adaptic and foam dressing for 2 weeks and stop. Continue offloading. She was advised to let us know if she had any further questions or concerns. Discharged from the wound center. This note was generated with [employer] software. It may contain incorrect words, spelling, and punctuation that were not noted in checking the note before signing.
--- NOTE | 2025-09-26 11:12 | PN.PCM_ITS ---
History of Present Illness Chief Complaint: Right buttock ulcer History of Wound: Ms. Smart is an 84-year-old who was referred to the wound center by her primary care physician due to right buttock ulcer. Sustained during a hospital admission a few months ago. Since then, has been utilizing an antibiotic and Desitin ointment to the area. She believes that there has been some improvement from initial note. History of diabetes which is well- controlled with most recent A1c less than 7. Pretty active and up until recen tly, slept in bed. Dietary intake is said to be very good. No chills, fever or otherwise feeling of unwell. Progress of Wound: No acute concerns at this time. She states that she has noted no pain in the area. Largely healed. Objective Data Objective Data Vital Signs: Vital Signs Temp Resp BP O2 Del Method 97.5 F L 16 156/75 H Room Air 09/26/25 09:30 09/26/25 09:30 09/26/25 09:30 09/26/25 09:30 Oxygen Delivery Method Room Air Debridement Note Debridement Note Post-Debridement Measurements and Additional Note: Post-Debridement Measurements/Treatment - Nurse 1 - General Ulcer Assessment Start: 09/26/25 09:30 Freq: Status: Active Protocol: [email or web address] Activity Type Activity Date Activity User E-sign Co-sign Detail Recorded Client Recorded Date Recorded By Document 09/26/25 09:30 [email or web address] [id number] 09/26/25 09:43 KARMEN 09/26/25 09:30 - Today's Visit Information Type of service Follow-up Visit (Physician/RETAIL MARKETING COORDINATOR ) Arrival Mode Ambulatory, Walker Patient Identification Verified (Name & Yes ) Patient Requires Transmission-Based No Precautions Vital Signs Temperature (97.8 F-99.1 F) 97.5 F L Temperature Source Temporal Pulse Location Monitor Respiratory Rate (12-18) 16 Respiratory rate source Observation Oxygen Delivery Method Room Air Blood Pressure (90/60-120/80) 156/75 H Blood Pressure Mean (mm Hg) 102 Source Monitor Position Sitting Blood Pressure Location Right Arm History Since Last Visit- (Skip if this is Patient's initial visit) Have you changed medications since your No last visit? Any new allergies or adverse reactions No Had a fall/change in ADL's that may No increase risk of falls Signs or symptoms of abuse and/or No neglect since last visit Have you been in the hospital since your No last visit? Has dressing in place as prescribed Yes Has compression in place as prescribed N/A Has offloadiing in place as prescribed N/A Experienced any changes in pain level or No management Left Footwear Regular Shoe Right Footwear Regular Shoe Pain Scale: 0-10 Numeric Is Patient Pain Free? Yes WC - Nurse 1 - General Ulcer Measurement Start: 09/26/25 09:30 Freq: Status: Active Protocol: Activity Type Activity Date Activity User E-sign Co-sign Detail Recorded Client Recorded Date Recorded By Document 09/26/25 09:30 [id number] 09/26/25 09:43 09/26/25 09:30 Wound Center Nurse 1 4. R buttocks -Combined with other wound No -Current Size (cm) - Length 0.3 -Current Size (cm) - Width 0.4 -Current Size (cm) - Depth 0.1 -Total Square Cm 0.12 -Date of Last Picture (Recall this 09/26/25 field) -Photo Taken Yes -Tunneling No -Undermining/Tunneling No -Circular Undermining No -Exudate Amt Small -Exudate Type Serous -Wound Margin Distinct, Outline Attached -Granulation Amt Medium (34-66%) -Granulation Quality Bolt -Slough/Fibrin Yes -Necrosis Amt Medium (34-66%) -Necrotic Tissue Type Adherent Slough -Texture (Deborah-wound Skin Appearance) Assessed -Moisture (Deborah-wound Skin Appearance) Assessed -Color (Deborah-wound Skin Appearance) Assessed -Temperature (Deborah-wound Skin No Abnormality Appearance) (Pt Warm) -Tenderness on Palpation (Deborah-wound No Skin Appearance) -Ulcer Cleansing Rinsed/ Irrigated with Saline -Foul Odor after Cleansing No -Anesthetic Used 5% Lidocaine Gel WC - Nurse 2 - General Ulcer CM Notes Start: 09/26/25 09:30 Freq: Status: Active Protocol: Activity Type Activity Date Activity User E-sign Co-sign Detail Recorded Client Recorded Date Recorded By Document 09/26/25 10:09 [id number] 09/26/25 10:10 09/26/25 10:09 Wound Center Nurse 2 -Time 10:09 -Correct Patient Yes -Correct Side, Site, Position Yes -Correct Procedure No -Procedure Performed No -Tunneling No -Undermining/Tunneling No -Circular Undermining No -Wound/Ulcer Outcome Healed- Epithelialized -Ulcer Cleansing Rinsed/ Irrigated with Saline -Foul Odor after Cleansing No -Bleeding Controlled with NA -Offloading No Pain Scale: 0-10 Numeric Is Patient Pain Free? Yes - Nurse 3 - General Ulcer D/C NN Start: 09/26/25 09:30 Freq: Status: Active Protocol: Activity Type Activity Date Activity User E-sign Co-sign Detail Recorded Client Recorded Date Recorded By Document 09/26/25 10:16 [id number] 09/26/25 10:17 09/26/25 10:16 Wound Care Center Nurse 3 4. R buttocks -Ulcer Cleansing Not Cleansed -Foul Odor after Cleansing No -Primary Dressing Applied NonAdherent Contact Layer, Promogran, Silicone Border Foam AG 3.6x4 -Promogran 1 -Silicone Border Foam AG 3.6x4 1 Pain Scale: 0-10 Numeric Is Patient Pain Free? Yes - Visit Discharge Discharge Condition Stable Ambulatory Status Ambulatory, Walker Transportation Private Auto
--- NOTE | 2025-09-27 09:00 | WC ---
PHOTO-RIGHT BUTTOCK 09/26/25
== END 2025-09-27 09:30 | disposition home or self-care (01) ==
LOC: WC 09:23
PROVIDERS: PCP Internal Medicine; Referring Provider Internal Medicine; Visit Provider Internal Medicine
DX: Z09 Encounter for follow-up examination after completed treatment for conditions other than malignant neoplasm (principal); I50.9 Heart failure, unspecified; E11.8 Type 2 diabetes mellitus with unspecified complications; R53.81 Other malaise
CPT/HCPCS: 99213; G0463